=== PATIENT | female | born 1950 | race Caucasian/White ===

== ENCOUNTER 2016-12-02 15:26 | Observation (INO) | payer MEDICARE, BC ==
[~2016-12-02] VITALS: Ht 162.6 cm; Wt 70.0 kg
[~2016-12-02 15:26] MED LIST: ACET-703 PO; ASPI81CH CHEW; FERR325T PO; FOLI800T PO; ISOS30TA3 PO; LEVEMIR SQ; LISI-515 PO; METO50TA PO; NITR1SUB3 SL; NOVOLOGP2 SQ; PERI8.6T PO; PRAS10TA PO; PRAV40TA2 PO; RANI150C PO; SPIR25TA PO; TRAM-492 PO; VITA100T PO; ZINC30TA2 PO
[2016-12-02 15:30] VITALS: BP 237/102; PULSE 59; TEMP 94.7; O2SAT 97
[2016-12-02] MEDS ORDERED: SODIUM CHLORIDE 0.9% FLUSH 5 ML FLUSH IVF PRN (15:30)
[2016-12-02] MEDS ORDERED: METOCLOPRAMIDE HCL 10 MG/2 ML VIAL IV PUSH ONE (15:30)
[2016-12-02] MEDS ORDERED: SODIUM CHLOR 0.9% 1000 ML INJ 1,000 ML IV SCH ×3 (15:30→18:06)
--- NOTE | 2016-12-02 15:33 | PD ---
HPI Chief Complaint: HYPOGLYCEMIA Time Seen by Provider: 15:33 Travel History International Travel<30 days: No Contact w/Intl Traveler<30days: No History of Present Illness HPI 65-year-old female with a history of CAD, asthma, COPD, iron deficiency anemia, diabetes presents to the emergency department by EMS for evaluation of hypoglycemia and vomiting. Per EMS report the patient was altered and her blood glucose was noted to be 37 on arrival, she was given 25 g of D50 which brought her sugar up to 262 and her mentation improved. The patient states that she has not been feeling well since she had her cardiac catheterization by Dr. pink, states she had 2 stents placed. States that she has been feeling weak and tired since the procedure. States that she started vomiting this afternoon. States that she did eat breakfast and take her insulin this morning and the vomiting started this afternoon. She denies any chest pain, shortness of breath, abdominal pain, diarrhea, constipation, dysuria, numbness or tingling, one-sided weakness, fever, cough or cold symptoms. She complains of mild lightheadedness. No other complaints. PFSH Past Medical History Hx Anticoagulant Therapy: Yes (EFFIENT) Anemia: Yes (iron deficiency) Arthritis: Yes Asthma: Yes Heart Rhythm Problems: No Cancer: No Cardiovascular Problems: Yes ([place]) High Cholesterol: No Chest Pain: Yes Congestive Heart Failure: Yes COPD: No Cerebrovascular Accident: No Coronary Artery Disease: Yes Diabetes: Yes Diminished Hearing: No Endocrine: No Gastrointestinal Disorders: No GERD: No Genitourinary: No Headaches: No Hepatitis: No Hiatal Hernia: Yes Hypertension: Yes Immune Disorder: No Implanted Vascular Access Dvce: No Kidney Stones: No Musculoskeletal: Yes (ARTHRITIS) Neurologic: Yes (LAMINECTOMY,SIATICA, NEUROPATHY) Psychiatric: No Reproductive: No Respiratory: Yes (COPD) Immunizations Current: No Migraines: Yes Myocardial Infarction: Yes (STENTS X 2) Renal Failure: No Seizures: No Sleep Apnea: No Thyroid Disease: No Ulcer: No Menopausal: Yes : 1 Para: 1 Miscarriage: 0 Past Surgical History Abdominal Surgery: Yes (appy) AICD: No Body Medical Devices: CARDIAC STENTS Cardiac Surgery: No Section: Yes Ear Surgery: No Endocrine Surgery: No Eye Surgery: No Genitourinary Surgery: No Gynecologic Surgery: Yes (C-SECT., HYSTERECTOMY) Hysterectomy: Yes Joint Replacement: No Neurologic Surgery: No Oral Surgery: Yes (TONSILS) Pacemaker: No Thoracic Surgery: No Tonsillectomy: Yes (ADENOIDS) Other Surgery: Yes (LEFT WRIST GANGLION CYST) Social History Alcohol Use: No Tobacco Use: No (QUIT 2001) Substance Use: No Allergies-Medications (Allergen,Severity, Reaction): Coded Allergies: Darvon (Verified Allergy, Mild, RASH, 12/02/16) Reported Meds & Prescriptions Reported Meds & Active Scripts Active Reported Zinc (Zinc Gluconate) 50 Mg Tab 50 Mg PO DAILY B-12 (Cyanocobalamin) 2,500 Mcg Subl 2,500 Mcg PO DAILY Nitroglycerin SL (Nitroglycerin) 0.4 Mg Subl 0.4 Mg SL DIRECTED PRN ONE TABLET UNDER THE TONGUE NEEDED FOR CHEST PAIN, MAY REPEAT EVERY FIVE MINUTES FOR A TOTAL OF 3 DOSES OR CALL 911 IF NO RELIEF Isosorbide Mononitrate ER (Isosorbide Mononitrate) 30 Mg Abbey 30 Mg PO DAILY Tylenol Extra Strength (Acetaminophen) 500 Mg Tab 500 Mg PO Q4-6H PRN Spironolactone 25 Mg Tab 25 Mg PO DAILY Pravastatin 40 Mg Tab 40 Mg PO DAILY Ranitidine (Ranitidine HCl) 150 Mg Cap 150 Mg PO DAILY PRN Jocelyn-Colace (Sennosides-Docusate Sodium) 8.6-50 Mg Tab 2 Tab PO DAILY Novolog Inj (Insulin Aspart) 1,000 Unit/10 Ml Vial Unknown Dose SQ ACHS Sliding Scale as directed. Metoprolol Tartrate 50 Mg Tab 50 Mg PO BID Lisinopril 20 Mg Tab 20 Mg PO DAILY Levemir Inj (Insulin Detemir) 1,000 unit/ 10 ML Vial 20 Units SQ BID Do not mix with any other Insulin. Folic Acid 800 Mcg Tab 1,600 Mcg PO DAILY Ferrous Sulfate 325 Mg Tab 325 Mg PO DAILY Effient (Prasugrel) 10 Mg Tab 10 Mg PO DAILY Aspirin 81 Mg Chew 81 Mg CHEW DAILY Review of Systems Except as stated in HPI: all other systems reviewed are Neg Physical Exam Narrative GENERAL: Well-nourished and well-developed female patient in no acute distress. SKIN: Warm and dry. HEAD: Normocephalic and atraumatic. EYES: No injection, drainage, or hyphema noted. PERRLA. EOMI. ENT: No nasal drainage noted. Oropharynx is clear. NECK: Supple and the trachea is midline. CARDIOVASCULAR: Regular rate and rhythm. RESPIRATORY: Breath sounds are equal bilaterally with no accessory muscle use, wheezing, rhonchi, or crackles. GASTROINTESTINAL: Abdomen is soft, non-tender, and nondistended. MUSCULOSKELETAL: No obvious deformities, swelling, cyanosis, or ecchymosis is present throughout the upper and lower extremities. Patient has full range of motion without any signs of neurovascular compromise. Strength 5/5 upper and lower extremities equal bilaterally. NEUROLOGICAL: Awake, alert, and oriented. Normal speech and gait. Cranial nerves are grossly intact. Data Data Last Documented VS Vital Signs Date Time Temp Pulse Resp B/P Pulse Ox O2 Delivery O2 Flow Rate FiO2 12/02/16 19:45 97.7 69 18 181/80 98 12/02/16 17:39 Room Air Orders Complete Blood Count With Diff (12/02/16 15:30) Comprehensive Metabolic Panel (12/02/16 15:30) Lipase (12/02/16 15:30) Prothrombin Time / Inr (Pt) (12/02/16 15:30) Act Partial Throm Time (Ptt) (12/02/16 15:30) Urinalysis - C+S If Indicated (12/02/16 15:30) Iv Access Insert/Monitor (12/02/16 15:30) Ecg Monitoring (12/02/16 15:30) Oximetry (12/02/16 15:30) Sodium Chlor 0.9% 1000 Ml Inj (Ns 1000 M (12/02/16 15:30) Sodium Chloride 0.9% Flush (Ns Flush) (12/02/16 15:30) Electrocardiogram (12/02/16 15:30) Chest, Single Ap (12/02/16 15:30) Metoclopramide Inj (Reglan Inj) (12/02/16 15:30) Lactic Acid Sepsis Protocol (12/02/16 15:30) Creatine Kinase (Cpk) (12/02/16 15:38) Troponin I (12/02/16 15:39) Ct Brain W/O Iv Contrast(Rout) (12/02/16 15:56) Sodium Chlor 0.9% 1000 Ml Inj (Ns 1000 M (12/02/16 16:25) Meclizine (Antivert) (12/02/16 18:15) Sodium Chlor 0.9% 1000 Ml Inj (Ns 1000 M (12/02/16 18:06) Cath For Specimen (12/02/16 18:06) Labetalol Inj (Trandate Inj) (12/02/16 18:15) Meclizine (Antivert) (12/02/16 18:15) Diazepam (Valium) (12/02/16 18:15) Admit Order (Ed Use Only) (12/02/16 19:47) Labs Laboratory Tests Test 12/02/16 12/02/16 15:45 18:15 White Blood Count 6.9 TH/MM3 Red Blood Count 4.17 MIL/MM3 Hemoglobin 11.7 GM/DL Hematocrit 35.1 % Mean Corpuscular Volume 84.2 FL Mean Corpuscular Hemoglobin 28.1 PG Mean Corpuscular Hemoglobin 33.3 % Concent Red Cell Distribution Width 15.4 % Platelet Count 258 TH/MM3 Mean Platelet Volume 8.3 FL Neutrophils (%) (Auto) 64.0 % Lymphocytes (%) (Auto) 23.1 % Monocytes (%) (Auto) 9.0 % Eosinophils (%) (Auto) 3.3 % Basophils (%) (Auto) 0.6 % Neutrophils # (Auto) 4.4 TH/MM3 Lymphocytes # (Auto) 1.6 TH/MM3 Monocytes # (Auto) 0.6 TH/MM3 Eosinophils # (Auto) 0.2 TH/MM3 Basophils # (Auto) 0.0 TH/MM3 CBC Comment DIFF FINAL Differential Comment Prothrombin Time 10.3 SEC Prothromb Time International 0.9 RATIO Ratio Activated Partial 24.3 SEC Thromboplast Time Sodium Level 140 MEQ/L Potassium Level 4.3 MEQ/L Chloride Level 111 MEQ/L Carbon Dioxide Level 21.4 MEQ/L Anion Gap 8 MEQ/L Blood Urea Nitrogen 29 MG/DL Creatinine 1.50 MG/DL Estimat Glomerular Filtration 35 ML/MIN Rate Random Glucose 112 MG/DL Lactic Acid Level 1.2 mmol/L Calcium Level 9.7 MG/DL Total Bilirubin 0.2 MG/DL Aspartate Amino Transf 25 U/L (AST/SGOT) Alanine Aminotransferase 26 U/L (ALT/SGPT) Alkaline Phosphatase 168 U/L Total Creatine Kinase 84 U/L Troponin I 0.03 NG/ML Total Protein 6.8 GM/DL Albumin 3.0 GM/DL Lipase 178 U/L Urine Color LIGHT-YELLOW Urine Turbidity CLEAR Urine pH 7.0 Urine Specific [place] 1.009 Urine Protein 100 mg/dL Urine Glucose (UA) 70 mg/dL Urine Ketones NEG mg/dL Urine Occult Blood NEG Urine Nitrite NEG Urine Bilirubin NEG Urine Urobilinogen LESS THAN 2.0 MG/DL Urine Leukocyte Esterase NEG Urine RBC 1 /hpf Urine WBC 2 /hpf Urine Squamous Epithelial <1 /hpf Cells Urine Hyaline Casts 2 /lpf Microscopic Urinalysis Comment CATH-CULT NOT IND MDM Medical Decision Making Medical Screen Exam Complete: Yes Emergency Medical Condition: Yes Differential Diagnosis Hypoglycemia versus dehydration versus electrolyte abnormality versus ACS Narrative Course 65-year-old female presents to the emergency department for evaluation of nausea , vomiting, weakness and hypoglycemia. She was given 25 g D50 and Zofran 4 mg by EMS en route. Patient is afebrile. She is noted to be hypertensive initially with a blood pressure of 237/102, patient admits she did not take any of her blood pressure medications today because she was not feeling well. No focal neurologic deficits. No other complaints. IV access is obtained, labs been drawn and sent. Patient is given IV fluids and Reglan 10 mg IV. EKG shows sinus rhythm with no acute ST elevations or depressions. CBC is unremarkable. CMP shows renal insufficiency with an elevated creatinine of 1.50, BUN 29, GFR 34. This is slightly elevated from the patient's baseline. Troponin is 0.03. Coags are unremarkable. Chest x-ray is negative. Head CT is negative. Patient is complaining of continued dizziness with movement, states when she moves her head she feels as though the room is spinning and this causes her to feel nauseous. We'll give her meclizine and Valium. Patient reassessed after receiving medications and still reports dizziness and inability to ambulate safely due to dizziness. Therefore she'll be admitted to medicine for vertigo, nausea and vomiting. I discussed the case with my attending physician Dr. Tate who is aware of the patients history, physical examination findings, and treatment plan. Physician Communication Physician Communication I spoke with Dr. Doug DE LOS SANTOS who agrees to admit the patient to her service under observation. I spoke with Ely ROLLE for Dr. Colon and to let her know the patient will be admitted for vertigo. She thanked me for my call and agrees to consult on the patient while she is here in the hospital. Diagnosis Primary Impression: Vertigo Additional Impression: Nausea & vomiting Qualified Code: R11.2 - Non-intractable vomiting with nausea, unspecified vomiting type Admitting Information Admitting Physician Requests: Tara Perez Dec 02, 2016 15:33
[2016-12-02 15:43] VITALS: O2SAT 97
[2016-12-02 15:58] LABS: AUTOMATED NEUTROPHIL # 4.4 TH/MM3 (1.8-7.7); BASOPHIL % 0.6 % (0.0-2.0); EOSINOPHIL # 0.2 TH/MM3 (0-0.4); EOSINOPHIL % 3.3 % (0.0-4.0); HEMATOCRIT 35.1 % (35.0-46.0); HEMO FLAGS DIFF FINAL; LYMPH % 23.1 % (9.0-44.0); LYMPHOCYTE # 1.6 TH/MM3 (1.0-4.8); MEAN CELL VOLUME 84.2 FL (80.0-100.0); MEAN CORPUSCULAR HEMOGLOBIN 28.1 PG (27.0-34.0); MEAN CORPUSCULAR HGB CONC 33.3 % (32.0-36.0); PLATELET COUNT 258 TH/MM3 (150-450); RED BLOOD COUNT 4.17 MIL/MM3 (4.00-5.30); RED CELL DISTRIBUTION WIDTH 15.4 % (11.6-17.2); WHITE BLOOD COUNT 6.9 TH/MM3 (4.0-11.0)
[2016-12-02 16:12] LABS: ALT (GPT) 26 U/L (10-53); ANION GAP 8 MEQ/L (5-15); AST (GOT) 25 U/L (15-37); BICARBONATE 21.4 MEQ/L (21.0-32.0); BLOOD UREA NITROGEN 29 MG/DL (7-18); CHLORIDE 111 MEQ/L (98-107); GLOMERULAR FILTRATION RATE 35 ML/MIN (>89); POTASSIUM 4.3 MEQ/L (3.5-5.1); SODIUM (NA) 140 MEQ/L (136-145)
[2016-12-02 16:13] LABS: APTT (PATIENT) 24.3 SEC (24.3-30.1); INTERNATIONAL NORMALIZED RATIO 0.9 RATIO; PROTHROMBIN TIME - PATIENT 10.3 SEC (9.8-11.6)
[2016-12-02 16:15] LABS: ALKALINE PHOSPHATASE 168 U/L (45-117); TOTAL BILIRUBIN ADULT 0.2 MG/DL (0.2-1.0)
--- NOTE | 2016-12-02 16:33 | RADRPT ---
EXAM DATE/TIME: 12/02/2016 15:54 [facility] COMPARISON: CHEST SINGLE AP, August 11, 2016, 4:24. INDICATIONS : Cough and vomiting. MEDICAL HISTORY : Chronic obstructive pulmonary disease. Myocardial infarction. Congestive heart failure. SURGICAL HISTORY : Coronary artery stent. ENCOUNTER: Initial ACUITY: 1 day PAIN SCORE: Non-responsive. LOCATION: Bilateral chest FINDINGS: A single view of the chest demonstrates the lungs to be symmetrically aerated without evidence of mas s, infiltrate or effusion. The cardiomediastinal contours are unremarkable. Osseous structures are intact. CONCLUSION: No acute disease. Rafa Gates MD on December 02, 2016 at 16:28 Board Certified Radiologist. This report was verified electronically.
[2016-12-02 17:39] VITALS: BP 217/69; PULSE 80; RESP 16; TEMP 97.6; O2SAT 98
[2016-12-02] MEDS ORDERED: CHEL50TA PO (17:39)
[2016-12-02] MEDS ORDERED: CYAN5SUB PO (17:39)
--- NOTE | 2016-12-02 18:02 | RADRPT ---
EXAM DATE/TIME: 12/02/2016 17:19 [facility] COMPARISON: No previous studies available for comparison. INDICATIONS : Hypoglycemic with nausea and vomiting. RADIATION DOSE: 41.75 CTDIvol (mGy) MEDICAL HISTORY : Cardiovascular disease. Hypertension. Diabetes mellitus type 2. SURGICAL HISTORY : None. ENCOUNTER: Initial ACUITY: 1 day PAIN SCALE: 0/10 LOCATION: cranial TECHNIQUE: Multiple contiguous axial images were obtained of the head. Using automated exposure control and adj ustment of the mA and/or kV according to patient size, radiation dose was kept as low as reasonably a chievable to obtain optimal diagnostic quality images. FINDINGS: CEREBRUM: The ventricles are normal for age. No evidence of midline shift, mass lesion, hemorrhage or acute in farction. No extra-axial fluid collections are seen. POSTERIOR FOSSA: The cerebellum and brainstem are intact. The 4th ventricle is midline. The cerebellopontine angle i s unremarkable. EXTRACRANIAL: The visualized portion of the orbits is intact. SKULL: The calvaria is intact. No evidence of skull fracture. CONCLUSION: Normal examination. Rafa Gates MD on December 02, 2016 at 17:50 Board Certified Radiologist. This report was verified electronically.
[2016-12-02] MEDS ORDERED: LABETALOL HCL 100 MG/20 ML VIAL IV PUSH ONE (18:15)
[2016-12-02] MEDS ORDERED: DIAZEPAM 5 MG TAB PO ONE (18:15)
[2016-12-02] MEDS ORDERED: MECLIZINE HCL 25 MG TAB PO ONE ×2 (18:15)
[2016-12-02 18:42] LABS: BLOOD, URINE NEG (NEG); GLUCOSE,URINE 70 mg/dL (NEG); HYALINE CAST, URINE 2 /lpf (RARE); KETONE, URINE NEG (NEG); NITRITE,URINE NEG (NEG); SQUAMOUS EPITHELIAL CELL URINE <1 /hpf (0-5); URINE COLOR LIGHT-YELLOW (YELLW/STRAW)
[2016-12-02 18:43] LABS: COMMENT (UR) CATH-CULT NOT IND; CULTURE IF INDICATED CATH CULTURE NOT IND
[2016-12-02 19:45] VITALS: BP 181/80; PULSE 69; RESP 18; TEMP 97.7; O2SAT 98
[2016-12-02] MEDS ORDERED: SENNOSIDES 8.6 MG TAB PO PRN (20:00)
[2016-12-02] MEDS ORDERED: BISACODYL 10 MG SUPP PR PRN (20:00)
[2016-12-02] MEDS ORDERED: SODIUM CHLORIDE 0.9% FLUSH 5 ML FLUSH FLUSH PRN (20:00)
[2016-12-02] MEDS ORDERED: ACETAMINOPHEN 325 MG TAB PO PRN (20:00)
[2016-12-02] MEDS ORDERED: ONDANSETRON HCL 4 MG/2 ML VIAL IVP PRN (20:00)
[2016-12-02] MEDS ORDERED: ENALAPRILAT 2.5 MG/2 ML VIAL IV PUSH PRN (20:00)
[2016-12-02] MEDS ORDERED: NITROGLYCERIN 0.4 MG SL 25 TABS/BTL SL PRN (20:00)
[2016-12-02] MEDS ORDERED: cloNIDine HCL 0.1 MG TAB PO PRN (20:00)
--- NOTE | 2016-12-02 20:12 | EKG ---
Date Performed: 12/02/2016 Time Performed: 14:46:02 PTAGE: 65 years EKG: Sinus rhythm MODERATE INTRAVENTRICULAR CONDUCTION DELAY NONSPECIFIC T-WAVE ABNORMALITY ABNORMAL ECG NO SIGNIFICAN T CHANGE FROM PRIOR ELECTROCARDIOGRAM. PREVIOUS TRACING : 11/25/2016 11.21 DOCTOR: Jae Hinton Interpretating Date/Time 12/02/2016 20:11:47
[2016-12-02] MEDS ORDERED: PILL SPLITTER OTHER PRN (20:45)
[2016-12-02] MEDS ORDERED: FAMOTIDINE 20 MG TAB PO PRN (20:45)
[2016-12-02] MEDS ORDERED: INSULIN DETEMIR 100 UNITS/ML VIAL SQ SCH (21:00)
[2016-12-02] MEDS ORDERED: ENOXAPARIN SODIUM 30 MG/0.3 ML SYRINGE SQ SCH (21:00)
[2016-12-02] MEDS: SODIUM CHLOR 0.9% 1000 ML INJ 1,000 ML IV SCH (21:01)
[2016-12-02] MEDS: METOPROLOL TARTRATE 50 MG TAB PO SCH (21:02)
[2016-12-02] MEDS: SODIUM CHLORIDE 0.9% FLUSH 5 ML FLUSH FLUSH SCH (21:03)
[2016-12-02 21:29] VITALS: BP 189/84; PULSE 68; RESP 18; TEMP 97.7; O2SAT 98
--- NOTE | 2016-12-02 23:25 | HHI.HP ---
[facility] Service [facility] Primary Care Physician No Primary Care Physician Admission Diagnosis Dizziness, Nausea and Vomiting Diagnoses: Chief Complaint: Dizziness ,nausea, vomiting Travel History International Travel<30 Days: No Contact w/Intl Traveler <30 Da: No Traveled to Known Affected Are: No History of Present Illness 65-year-old female with a history of diabetes, KS with recent stent placement one week ago, and iron deficiency anemia. Patient states she went to lay down tonight because she hasn't been feeling well since her stent placement one week ago and according to the she became lethargic and was unable to wake up, then called 911. Patient states she began to wake up when the paramedics began working on her, she does not recall any prior events prior to. She does state that when she woke up she started vomiting numerous amount of times. She states she has been feeling very weak and had loss of appetite today and had only eaten eggs for breakfast all day. She denies any chest pain, shortness of breath, fever or chills Per the EMS report the patient was noted to have a blood sugar of 37 on arrival and was given D50 in which elevated her blood sugar 262, with improved consciousness. She is followed by Dr. Reddy for cardiology Review of Systems Constitutional: COMPLAINS OF: Fatigue, Dizziness, DENIES: Fever, Chills Respiratory: DENIES: Cough, Shortness of breath Cardiovascular: DENIES: Chest pain, Lower Extremity Edema Gastrointestinal: COMPLAINS OF: Nausea, Vomiting, DENIES: Abdominal pain Genitourinary: DENIES: Hematuria Musculoskeletal: DENIES: Back pain, Neck pain Integumentary: DENIES: Rash Hematologic/lymphatic: DENIES: Lymphadenopathy Neurologic: COMPLAINS OF: Localized weakness Past Family Social History Past Medical History CAD Asthma COPD Iron deficiency anemia Diabetes [place] with stent placement 10/2016 Past Surgical History Stent placement 10/2016 L5 laminectomy with nerve decompression Hysterectomy Reported Medications Reported Meds & Active Scripts Active Reported Zinc (Zinc Gluconate) 50 Mg Tab 50 Mg PO DAILY B-12 (Cyanocobalamin) 2,500 Mcg Subl 2,500 Mcg PO DAILY Nitroglycerin SL (Nitroglycerin) 0.4 Mg Subl 0.4 Mg SL DIRECTED PRN ONE TABLET UNDER THE TONGUE NEEDED FOR CHEST PAIN, MAY REPEAT EVERY FIVE MINUTES FOR A TOTAL OF 3 DOSES OR CALL 911 IF NO RELIEF Isosorbide Mononitrate ER (Isosorbide Mononitrate) 30 Mg Abbey 30 Mg PO DAILY Tylenol Extra Strength (Acetaminophen) 500 Mg Tab 500 Mg PO Q4-6H PRN Spironolactone 25 Mg Tab 25 Mg PO DAILY Pravastatin 40 Mg Tab 40 Mg PO DAILY Ranitidine (Ranitidine HCl) 150 Mg Cap 150 Mg PO DAILY PRN Jocelyn-Colace (Sennosides-Docusate Sodium) 8.6-50 Mg Tab 2 Tab PO DAILY Novolog Inj (Insulin Aspart) 1,000 Unit/10 Ml Vial Unknown Dose SQ ACHS Sliding Scale as directed. Metoprolol Tartrate 50 Mg Tab 50 Mg PO BID Lisinopril 20 Mg Tab 20 Mg PO DAILY Levemir Inj (Insulin Detemir) 1,000 unit/ 10 ML Vial 20 Units SQ BID Do not mix with any other Insulin. Folic Acid 800 Mcg Tab 1,600 Mcg PO DAILY Ferrous Sulfate 325 Mg Tab 325 Mg PO DAILY Effient (Prasugrel) 10 Mg Tab 10 Mg PO DAILY Aspirin 81 Mg Chew 81 Mg CHEW DAILY Allergies: Coded Allergies: Darvon (Verified Allergy, Mild, RASH, 12/02/16) Active Ordered Medications Current Medications Medications (Trade) Dose Ordered Sig/Marie Route Start Time Stop Time Status Last Admin (NS Flush) 2 ml UNSCH PRN FLUSH 12/02/16 20:00 (NS Flush) 2 ml BID FLUSH 12/02/16 21:00 12/02/16 21:03 (Tylenol) 650 mg Q4H PRN PO 12/02/16 20:00 (Zofran Inj) 4 mg Q6H PRN IVP 12/02/16 20:00 (Dulcolax Supp) 10 mg DAILY PRN AK 12/02/16 20:00 (Senokot) 17.2 mg Q12H PRN PO 12/02/16 20:00 (Lovenox Inj) 30 mg Q24H SQ 12/02/16 21:00 12/02/16 21:02 (Aspirin Chew) 81 mg DAILY CHEW 12/03/16 09:00 (Ferrous Sulfate) 325 mg DAILY PO 12/03/16 09:00 (Folate) 1 mg DAILY PO 12/03/16 09:00 (Levemir Inj) 20 units BID SQ 12/02/16 21:00 (Imdur) 30 mg DAILY PO 12/03/16 09:00 (Prinivil) 20 mg DAILY PO 12/03/16 09:00 (Lopressor) 50 mg BID PO 12/02/16 21:00 12/02/16 21:02 (Effient) 10 mg DAILY PO 12/03/16 09:00 (Pravachol) 40 mg DAILY PO 12/03/16 09:00 (Pepcid) 10 mg BID PRN PO 12/02/16 20:45 (Jocelyn-Colace) 2 tab DAILY PO 12/03/16 09:00 (Aldactone) 25 mg DAILY PO 12/03/16 09:00 (Vitamin B12) 2,500 mcg DAILY PO 12/03/16 09:00 Nitroglycerin 0.4 mg 0.4 mg Q5M PRN SL 12/02/16 20:00 (NS 1000 ml Inj) 1,000 ml @ 84 mls/hr [id number] IV 12/02/16 20:00 12/02/16 21:01 (Vasotec Inj) 2.5 mg Q6H PRN IV PUSH 12/02/16 20:00 (Catapres) 0.1 mg Q6H PRN PO 12/02/16 20:00 12/02/16 21:36 (Pill Splitter) 1 ea UNSCH PRN OTHER 12/02/16 20:45 Family History Mom: MS Dad: Colon cancer Social History Tobacco use: Quit 15 years ago prior to this 1 ppd for 40 years Alcohol use: Denies Illicit drug use: Denies Physical Exam Vital Signs Vital Signs Date Time Temp Pulse Resp B/P Pulse Ox O2 Delivery O2 Flow Rate FiO2 12/02/16 21:29 97.7 68 18 189/84 98 Room Air 12/02/16 19:45 97.7 69 18 181/80 98 12/02/16 17:39 97.6 80 16 217/69 98 Room Air 12/02/16 15:45 99 18 98 Room Air 12/02/16 15:43 97 Room Air 12/02/16 15:30 94.7 59 237/102 97 Physical Exam GENERAL: This is a well-nourished, well-developed patient, in no apparent distress. SKIN: No rashes, ecchymoses or lesions. Cool and dry. HEAD: Atraumatic. Normocephalic. EYES: Pupils equal round and reactive. ENT: Nose without bleeding, purulent drainage or septal hematoma. Throat without erythema, tonsillar hypertrophy or exudate. Uvula midline. Airway patent. NECK: Trachea midline. No JVD CARDIOVASCULAR: Regular rate and rhythm without murmurs, gallops, or rubs. RESPIRATORY: Clear to auscultation. Breath sounds equal bilaterally. No wheezes , rales, or rhonchi. GASTROINTESTINAL: Abdomen soft, non-tender, nondistended. MUSCULOSKELETAL: Extremities without clubbing, cyanosis, or edema. No joint tenderness, effusion, or edema noted. No calf tenderness. NEUROLOGICAL: Awake and alert. Cranial nerves II through XII intact. Motor and sensory grossly within normal limits. Five out of 5 muscle strength in all muscle groups. Normal speech. Laboratory Laboratory Tests Test 12/02/16 12/02/16 12/02/16 15:45 18:15 20:59 White Blood Count 6.9 Red Blood Count 4.17 Hemoglobin 11.7 Hematocrit 35.1 Mean Corpuscular Volume 84.2 Mean Corpuscular Hemoglobin 28.1 Mean Corpuscular Hemoglobin 33.3 Concent Red Cell Distribution Width 15.4 Platelet Count 258 Mean Platelet Volume 8.3 Neutrophils (%) (Auto) 64.0 Lymphocytes (%) (Auto) 23.1 Monocytes (%) (Auto) 9.0 Eosinophils (%) (Auto) 3.3 Basophils (%) (Auto) 0.6 Neutrophils # (Auto) 4.4 Lymphocytes # (Auto) 1.6 Monocytes # (Auto) 0.6 Eosinophils # (Auto) 0.2 Basophils # (Auto) 0.0 CBC Comment DIFF FINAL Differential Comment Prothrombin Time 10.3 Prothromb Time International 0.9 Ratio Activated Partial 24.3 Thromboplast Time Sodium Level 140 Potassium Level 4.3 Chloride Level 111 Carbon Dioxide Level 21.4 Anion Gap 8 Blood Urea Nitrogen 29 Creatinine 1.50 Estimat Glomerular Filtration 35 Rate Random Glucose 112 Lactic Acid Level 1.2 Calcium Level 9.7 Total Bilirubin 0.2 Aspartate Amino Transf 25 (AST/SGOT) Alanine Aminotransferase 26 (ALT/SGPT) Alkaline Phosphatase 168 Total Creatine Kinase 84 Troponin I 0.03 0.03 Total Protein 6.8 Albumin 3.0 Lipase 178 Urine Color LIGHT-YELLOW Urine Turbidity CLEAR Urine pH 7.0 Urine Specific [place] 1.009 Urine Protein 100 Urine Glucose (UA) 70 Urine Ketones NEG Urine Occult Blood NEG Urine Nitrite NEG Urine Bilirubin NEG Urine Urobilinogen LESS THAN 2.0 Urine Leukocyte Esterase NEG Urine RBC 1 Urine WBC 2 Urine Squamous Epithelial <1 Cells Urine Hyaline Casts 2 Microscopic Urinalysis Comment CATH-CULT NOT IND Result Diagram: 12/02/16 1545 12/02/16 1545 Imaging Last Impressions Head CT 12/02/16 1556 Signed Impressions: Service Date/Time: Friday, December 02, 2016 17:19 - CONCLUSION: Normal examination. Raaf Gates MD Chest X-Ray 12/02/16 1530 Signed Impressions: Service Date/Time: Friday, December 02, 2016 15:54 - CONCLUSION: No acute disease. Rafa Gates MD Assessment and Plan Problem List: (1) Nausea & vomiting ICD Code: R11.2 Status: Acute (2) Vertigo ICD Code: R42 Status: Acute (3) Hypoglycemia ICD Code: E16.2 Status: Acute (4) Acute kidney insufficiency ICD Code: N28.9 Status: Acute (5) Anemia, iron deficiency ICD Code: D50.9 Status: Chronic (6) Hypertension ICD Code: I10 Status: Chronic Assessment and Plan 65-year-old female with a history of diabetes, [place], anemia, COPD presented with: Hypoglycemia, upon admission blood glucose found to be 37 -Accu-Cheks before meals and at bedtime Nausea/vomiting, likely due to hypoglycemia -Antiemetics as needed -Diet as tolerated Dizziness/fatigue -Consult cardiology for recommendations -Serial troponins OCNOR Labs: Creatinine 1.5, baseline 0.7 -Supportive IVF -BMP in a.m. Other chronic medical conditions hypertension, iron deficiency anemia and dyslipidemia. -Continue home medications ferrous sulfate, metoprolol, pravastatin and lisinopril DVT prophylaxis: Lovenox Written by Jane PETERSON, acting as scribe for Dr. Camacho on 12/02/16 at 2356. The documentation accurately reflects the work performed [id number] and decisions made by me and the physician Dr Camacho on 12/02/16. The documentation accurately reflects the work performed [id number] by me Dr Camacho on 12/02/16. Discussed Condition With Patient and ED physician Problem Qualifiers (1) Nausea & vomiting: Qualified Code: R11.2 - Non-intractable vomiting with nausea, unspecified vomiting type Jane Monaco Dec 02, 2016 23:25 Lay Camacho MD Dec 03, 2016 04:07
[2016-12-03] VITALS (7 sets, daily range): BP systolic 159–179; BP diastolic 72–77; PULSE 65–70; RESP 18; TEMP 96.3–97.5; O2SAT 96–98
[2016-12-03] MEDS ORDERED: DEXTROSE 50% IN WATER 50 ML VIAL(D50) IV PUSH PRN (02:15)
[2016-12-03] MEDS ORDERED: GLUCAGON 1 MG/ML VIAL OTHER PRN (02:15)
[2016-12-03 03:40] LABS: AUTOMATED NEUTROPHIL # 5.2 TH/MM3 (1.8-7.7); BASOPHIL % 0.3 % (0.0-2.0); HEMATOCRIT 31.1 % (35.0-46.0); HEMO FLAGS DIFF FINAL; LYMPH % 14.7 % (9.0-44.0); LYMPHOCYTE # 0.9 TH/MM3 (1.0-4.8); MEAN CELL VOLUME 84.3 FL (80.0-100.0); MEAN CORPUSCULAR HEMOGLOBIN 28.1 PG (27.0-34.0); MEAN CORPUSCULAR HGB CONC 33.4 % (32.0-36.0); MONO % 2.5 % (0.0-8.0); NEUT % 82.5 % (16.0-70.0); PLATELET COUNT 261 TH/MM3 (150-450); RED BLOOD COUNT 3.69 MIL/MM3 (4.00-5.30); WHITE BLOOD COUNT 6.3 TH/MM3 (4.0-11.0)
[2016-12-03 03:54] LABS: BICARBONATE 20.6 MEQ/L (21.0-32.0); POTASSIUM 4.9 MEQ/L (3.5-5.1)
[2016-12-03] MEDS ORDERED: ENALAPRILAT 1.25 MG/ML VIAL IV PRN (08:15)
[2016-12-03] MEDS ORDERED: cloNIDine HCL 0.1 MG TAB PO PRN (08:15)
[2016-12-03] MEDS: METOPROLOL TARTRATE 50 MG TAB PO SCH (08:51)
[2016-12-03] MEDS: SODIUM CHLORIDE 0.9% FLUSH 5 ML FLUSH FLUSH SCH (08:51)
[2016-12-03] MEDS: SODIUM CHLOR 0.9% 1000 ML INJ 1,000 ML IV SCH (08:57)
[2016-12-03] MEDS ORDERED: PRASUGREL 10 MG TAB PO SCH (09:00)
[2016-12-03] MEDS ORDERED: FERROUS SULFATE 325 MG (65 MG ELEMENTAL IRON) TAB PO SCH (09:00)
[2016-12-03] MEDS ORDERED: FOLIC ACID 1 MG TAB PO SCH (09:00)
[2016-12-03] MEDS ORDERED: INSULIN DETEMIR 100 UNITS/ML VIAL SQ SCH (09:00)
[2016-12-03] MEDS ORDERED: ISOSORBIDE MONONITRATE 30 MG TAB PO SCH (09:00)
[2016-12-03] MEDS ORDERED: DOCUSATE SODIUM 50 MG/SENNA 8.6 MG TAB PO SCH (09:00)
[2016-12-03] MEDS ORDERED: CYANOCOBALAMIN 1,000 MCG TAB PO SCH (09:00)
[2016-12-03] MEDS ORDERED: ASPIRIN 81 MG CHEW TAB CHEW SCH (09:00)
[2016-12-03] MEDS ORDERED: PRAVASTATIN SOD 40 MG TAB PO SCH (09:00)
[2016-12-03] MEDS ORDERED: LISINOPRIL 20 MG TAB PO SCH (09:00)
[2016-12-03] MEDS ORDERED: SPIRONOLACTONE 25 MG TAB PO SCH (09:00)
[2016-12-03] MEDS ORDERED: LEVEMIR SQ (09:46)
--- NOTE | 2016-12-03 09:47 | HHI.DCPOC ---
Discharge Care Plan Diagnosis: (1) Hypoglycemia Your Health Problems Are: Difficulty with ADL Exercise Tolerance Goals to Promote Your Health * To prevent worsening of your condition and complications * To maintain your health at the optimal level Directions to Meet Your Goals Take your medications as prescribed Follow your dietary instruction Follow activity as directed Keep your appointments as scheduled Take your immunizations and boosters as scheduled If your symptoms worsen call your PCP, if no PCP go to Urgent Care Center or Emergency Room Smoking is Dangerous to Your Health. Avoid second hand smoke Call the 24-hour hour crisis hotline for domestic abuse at Tony Gomez MD Dec 03, 2016 09:47
[2016-12-03] MEDS ORDERED: INSULIN ASPART SUPPLEMENTAL SCALE SQ SCH (11:00)
--- NOTE | 2016-12-03 11:49 | PD.CONS ---
HPI Service Cardiology physicians Consult Requested By ER MD Reason for Consult Dizziness, cath last week Primary Care Physician No Primary Care Physician History of Present Illness The patient is a 65 year old female known to Dr. Reddy with a cardiac history of ASHD s/p cardiac cath and stent X [address] Reddy, HTN and HLD. The patient called EMS for dizziness. Blood sugar noted to be 37. Symptoms improved with D50. Today, on evaluation she denies recurrent symptoms. No CP or SOB. Groin slightly sore with some bruising. She has been compliant with cardiac medications. Ready to go home Review of Systems Consitutional: DENIES: Fatigue, Fever, Chills, Weight gain, Weight loss Eyes: DENIES: Amaurosis Fugax, Change in vision HEENT: COMPLAINS OF: Lightheadedness Respiratory: DENIES: See HPI, Cough, Snoring, Shortness of breath, Wheezing, Sputum production Cardiovascular: DENIES: See HPI, Chest pain, Palpitations, Syncope, Tachycardia Gastrointestinal: DENIES: Nausea, Vomiting, Change in bowel habits, Reflux, Bloody stools, Melena Genitourinary: DENIES: Urinary incontinence, Difficulty voiding Integumentary: DENIES: Rash Neurologic: DENIES: Tingling or numbness, Memory problems, Poor Balance, Stroke symptoms Musculoskeletal: DENIES: Joint pain, Muscle pain, Limited range of motion, Back pain Psychiatric: DENIES: Anxiety, Depression, Sleep disturbances Hematologic: DENIES: Bruising tendencies, Bleeding tendencies Endocrine: DENIES: Weight gain, Weight loss, Thyroid disease Past Family Social History Allergies: Coded Allergies: Darvon (Verified Allergy, Mild, RASH, 12/02/16) Past Medical History ASHD HTN HLD DM COPD Past Surgical History Cardiac catheterization 10/2016 Laminectomy 'Hysterectomy Reported Medications Reviewed Active Ordered Medications Current Medications Medications (Trade) Dose Ordered Sig/Marie Route Start Time Stop Time Status Last Admin (NS Flush) 2 ml UNSCH PRN FLUSH 12/02/16 20:00 (NS Flush) 2 ml BID FLUSH 12/02/16 21:00 12/03/16 08:51 (Tylenol) 650 mg Q4H PRN PO 12/02/16 20:00 (Zofran Inj) 4 mg Q6H PRN IVP 12/02/16 20:00 (Dulcolax Supp) 10 mg DAILY PRN MS 1/4/17 20:00 (Senokot) 17.2 mg Q12H PRN PO 12/02/16 20:00 (Lovenox Inj) 30 mg Q24H SQ 12/02/16 21:00 12/02/16 21:02 (Aspirin Chew) 81 mg DAILY CHEW 12/03/16 09:00 12/03/16 08:50 (Ferrous Sulfate) 325 mg DAILY PO 12/03/16 09:00 12/03/16 08:50 (Folate) 1 mg DAILY PO 12/03/16 09:00 12/03/16 08:50 (Imdur) 30 mg DAILY PO 12/03/16 09:00 12/03/16 08:50 (Prinivil) 20 mg DAILY PO 12/03/16 09:00 12/03/16 08:48 (Lopressor) 50 mg BID PO 12/02/16 21:00 12/03/16 08:51 (Effient) 10 mg DAILY PO 12/03/16 09:00 12/03/16 08:51 (Pravachol) 40 mg DAILY PO 12/03/16 09:00 12/03/16 08:50 (Pepcid) 10 mg BID PRN PO 12/02/16 20:45 (Jocelyn-Colace) 2 tab DAILY PO 12/03/16 09:00 12/03/16 08:50 (Aldactone) 25 mg DAILY PO 12/03/16 09:00 12/03/16 08:50 (Vitamin B12) 2,500 mcg DAILY PO 12/03/16 09:00 12/03/16 08:50 Nitroglycerin 0.4 mg 0.4 mg Q5M PRN SL 12/02/16 20:00 (NS 1000 ml Inj) 1,000 ml @ 84 mls/hr [id number] IV 12/02/16 20:00 12/03/16 08:57 (Vasotec Inj) 2.5 mg Q6H PRN IV PUSH 12/02/16 20:00 (Catapres) 0.1 mg Q6H PRN PO 12/02/16 20:00 12/02/16 21:36 (Pill Splitter) 1 ea UNSCH PRN OTHER 12/02/16 20:45 (D50w (Vial) Inj) 25 ml UNSCH PRN IV PUSH 12/03/16 02:15 (Glucagon Inj) 1 mg UNSCH PRN OTHER 12/03/16 02:15 (Levemir Inj) 16 units BID SQ 12/03/16 09:00 12/03/16 08:57 (Vasotec Inj) 1.25 mg Q6H PRN IV 12/03/16 08:15 (Catapres) 0.1 mg Q6H PRN PO 12/03/16 08:15 Family History non contributory Social History no ETOH Hx smoking Physical Exam Vital Signs Vital Signs Date Time Temp Pulse Resp B/P Pulse Ox O2 Delivery O2 Flow Rate FiO2 12/03/16 10:44 65 12/03/16 07:27 97.5 68 18 179/75 96 12/03/16 05:57 70 12/03/16 04:34 96.3 66 18 177/77 96 12/03/16 04:13 69 18 167/72 96 12/03/16 00:52 66 18 159/72 98 Room Air 12/02/16 21:29 97.7 68 18 189/84 98 Room Air 12/02/16 19:45 97.7 69 18 181/80 98 12/02/16 17:39 97.6 80 16 217/69 98 Room Air 12/02/16 15:45 99 18 98 Room Air 12/02/16 15:43 97 Room Air 12/02/16 15:30 94.7 59 237/102 97 Physical Exam GENERAL: female, no distress SKIN: Warm and dry. HEAD: Atraumatic. Normocephalic. EYES: Pupils equal and round. No scleral icterus. No injection or drainage. ENT: No nasal bleeding or discharge. Mucous membranes pink and moist. NECK: Trachea midline. No JVD. CARDIOVASCULAR: Regular rate and rhythm. RESPIRATORY: No accessory muscle use. Clear to auscultation. Breath sounds equal bilaterally. GASTROINTESTINAL: Abdomen soft, non-tender, nondistended. MUSCULOSKELETAL: Extremities without clubbing, cyanosis, or edema. No obvious deformities. Bilateral groin with ecchymosis NEUROLOGICAL: Awake and alert. No obvious cranial nerve deficits. Motor grossly within normal limits. Five out of 5 muscle strength in the arms and legs. Normal speech. PSYCHIATRIC: Appropriate mood and affect; insight and judgment normal. Laboratory Laboratory Tests Test 12/02/16 12/02/16 12/02/16 12/03/16 15:45 18:15 20:59 03:29 White Blood Count 6.9 6.3 Red Blood Count 4.17 3.69 Hemoglobin 11.7 10.4 Hematocrit 35.1 31.1 Mean Corpuscular Volume 84.2 84.3 Mean Corpuscular Hemoglobin 28.1 28.1 Mean Corpuscular Hemoglobin 33.3 33.4 Concent Red Cell Distribution Width 15.4 15.0 Platelet Count 258 261 Mean Platelet Volume 8.3 8.2 Neutrophils (%) (Auto) 64.0 82.5 Lymphocytes (%) (Auto) 23.1 14.7 Monocytes (%) (Auto) 9.0 2.5 Eosinophils (%) (Auto) 3.3 0.0 Basophils (%) (Auto) 0.6 0.3 Neutrophils # (Auto) 4.4 5.2 Lymphocytes # (Auto) 1.6 0.9 Monocytes # (Auto) 0.6 0.2 Eosinophils # (Auto) 0.2 0.0 Basophils # (Auto) 0.0 0.0 CBC Comment DIFF FINAL DIFF FINAL Differential Comment Prothrombin Time 10.3 Prothromb Time International 0.9 Ratio Activated Partial 24.3 Thromboplast Time Sodium Level 140 141 Potassium Level 4.3 4.9 Chloride Level 111 110 Carbon Dioxide Level 21.4 20.6 Anion Gap 8 10 Blood Urea Nitrogen 29 26 Creatinine 1.50 1.41 Estimat Glomerular Filtration 35 38 Rate Random Glucose 112 170 Lactic Acid Level 1.2 Calcium Level 9.7 9.3 Total Bilirubin 0.2 Aspartate Amino Transf 25 (AST/SGOT) Alanine Aminotransferase 26 (ALT/SGPT) Alkaline Phosphatase 168 Total Creatine Kinase 84 Troponin I 0.03 0.03 0.03 Total Protein 6.8 Albumin 3.0 Lipase 178 Urine Color LIGHT-YELLOW Urine Turbidity CLEAR Urine pH 7.0 Urine Specific [place] 1.009 Urine Protein 100 Urine Glucose (UA) 70 Urine Ketones NEG Urine Occult Blood NEG Urine Nitrite NEG Urine Bilirubin NEG Urine Urobilinogen LESS THAN 2.0 Urine Leukocyte Esterase NEG Urine RBC 1 Urine WBC 2 Urine Squamous Epithelial <1 Cells Urine Hyaline Casts 2 Microscopic Urinalysis Comment CATH-CULT NOT IND Result Diagram: 12/03/16 0329 12/03/16 0329 Imaging Last [address] 12/02/16 1556 Signed Impressions: Service Date/Time: Friday, December 02, 2016 17:19 - CONCLUSION: Normal examination. Rafa Gates MD Chest X-Ray 12/02/16 1530 Signed Impressions: Service Date/Time: Friday, December 02, 2016 15:54 - CONCLUSION: No acute disease. Rafa Gates MD Assessment and Plan Assessment and Plan Assessment Dizziness due hypoglycemia ASHD s/p PTCA/stent X 2 10/[address] Reddy HTN HLD DM COPD Renal insufficiency Plan: Patient is stable from cardiac standpoint. Follow up with Dr. Reddy next week Patient seen and evaluated by Lupe Hernández Dec 03, 2016 11:49
--- NOTE | 2016-12-03 12:01 | HHI.PR ---
Subjective Remarks Follow up for hypoglycemic episode. Patient reports she recently received a new box of Levemir, and on the box it stated to take Levemir 20 units twice a day instead of her normal 16 units twice a day. The patient assumed her physician has changed this dosing therefore she started taking the 20 units. She also reports that since her cardiac cath she hasn't had much of an appetite however she has still been eating. Yesterday she became very lethargic and was unarousable, EMS reported a blood sugar in the 30s upon arrival. Patient's blood sugar is now 170 this morning. The patient feels much better and she wants to go home. She denies any lightheadedness, dizziness, chest pain, shortness breath, or abdominal complaints. Objective Vitals Vital Signs Date Time Temp Pulse Resp B/P Pulse Ox O2 Delivery O2 Flow Rate FiO2 12/03/16 10:44 65 12/03/16 07:27 97.5 68 18 179/75 96 12/03/16 05:57 70 12/03/16 04:34 96.3 66 18 177/77 96 12/03/16 04:13 69 18 167/72 96 12/03/16 00:52 66 18 159/72 98 Room Air 12/02/16 21:29 97.7 68 18 189/84 98 Room Air 12/02/16 19:45 97.7 69 18 181/80 98 12/02/16 17:39 97.6 80 16 217/69 98 Room Air 12/02/16 15:45 99 18 98 Room Air 12/02/16 15:43 97 Room Air 12/02/16 15:30 94.7 59 237/102 97 I/O 12/02/16 12/02/16 12/02/16 12/03/16 12/03/16 12/03/16 07:00 15:00 23:00 07:00 15:00 23:00 Output Total 500 ml Balance -500 ml Output Urine Total 500 ml # Voids 1 Result Diagram: 12/03/16 0329 12/03/16 0329 Imaging Last Impressions Head CT 12/02/16 1556 Signed Impressions: Service Date/Time: Friday, December 02, 2016 17:19 - CONCLUSION: Normal examination. Rafa Gates MD Chest X-Ray 12/02/16 1530 Signed Impressions: Service Date/Time: Friday, December 02, 2016 15:54 - CONCLUSION: No acute disease. Rafa Gates MD Objective Remarks GENERAL: Well-nourished, well-developed female patient in NAD. SKIN: Warm and dry. No rash. HEAD: Normocephalic. Atraumatic. EYES: Pupils equal and round. No scleral icterus. No injection or drainage. ENT: No nasal bleeding or discharge. Mucous membranes pink and moist. NECK: Supple. Trachea midline. CARDIOVASCULAR: Regular rate and rhythm. S1, S2 noted. No murmur appreciated. RESPIRATORY: No accessory muscle use. Clear to auscultation. Breath sounds equal bilaterally. GASTROINTESTINAL: Abdomen soft, non-tender, nondistended. Normoactive bowel sounds x4. MUSCULOSKELETAL: No obvious deformities. Extremities without clubbing, cyanosis , or edema. NEUROLOGICAL: Awake and alert. No obvious cranial nerve deficits. Motor grossly within normal limits. Normal speech. PSYCHIATRIC: Appropriate mood and affect; insight and judgment normal. Medications and IVs Current Medications Medications (Trade) Dose Ordered Sig/Marie Route Start Time Stop Time Status Last Admin (Pepcid) 10 mg BID PRN PO 12/02/16 20:45 (Jocelyn-Colace) 2 tab DAILY PO 12/03/16 09:00 12/03/16 08:50 (Aldactone) 25 mg DAILY PO 12/03/16 09:00 12/03/16 08:50 (Vitamin B12) 2,500 mcg DAILY PO 12/03/16 09:00 12/03/16 08:50 Nitroglycerin 0.4 mg 0.4 mg Q5M PRN SL 12/02/16 20:00 (NS 1000 ml Inj) 1,000 ml @ 84 mls/hr [id number] IV 12/02/16 20:00 12/03/16 08:57 (Vasotec Inj) 2.5 mg Q6H PRN IV PUSH 12/02/16 20:00 (Catapres) 0.1 mg Q6H PRN PO 12/02/16 20:00 12/02/16 21:36 (Pill Splitter) 1 ea UNSCH PRN OTHER 12/02/16 20:45 (D50w (Vial) Inj) 25 ml UNSCH PRN IV PUSH 12/03/16 02:15 (Glucagon Inj) 1 mg UNSCH PRN OTHER 12/03/16 02:15 (Levemir Inj) 16 units BID SQ 12/03/16 09:00 12/03/16 08:57 (Vasotec Inj) 1.25 mg Q6H PRN IV 12/03/16 08:15 (Catapres) 0.1 mg Q6H PRN PO 12/03/16 08:15 Urinary Catheter: No Vascular Central Line Catheter: No A/P Problem List: (1) Nausea & vomiting ICD Code: R11.2 Status: Acute (2) Vertigo ICD Code: R42 Status: Acute (3) Hypoglycemia ICD Code: E16.2 Status: Acute (4) Acute kidney insufficiency ICD Code: N28.9 Status: Acute (5) Anemia, iron deficiency ICD Code: D50.9 Status: Chronic (6) Hypertension ICD Code: I10 Status: Chronic Assessment and Plan 65-year-old female with a history of diabetes, ME, anemia, COPD presented with: Hypoglycemia, upon admission blood glucose found to be 37 -secondary to accidental recently increased Levemir dosing from 16u bid to 20u bid, reportedly patient received new Levemir box with dosing of 20u bid -Accu-Cheks before meals and at bedtime -blood glucose now much improved, currently 170, symptoms resolved, will discharge home Nausea/vomiting, likely due to hypoglycemia -Antiemetics as needed -Diet as tolerated -symptoms resolved Dizziness/fatigue: suspect secondary to hypoglycemia as above -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 Colon ok to discharge from cardiac standpoint [facility] Labs: Creatinine 1.5, has been elevated in the past -Supportive IVF -BMP today still with Cr 1.41, trending down -Recommended to continue oral hydration after discharge, f/up with PCP Other chronic medical conditions hypertension, iron deficiency anemia and dyslipidemia. -Continue home medications ferrous sulfate, metoprolol, pravastatin and lisinopril DVT prophylaxis: Lovenox Written by Bruna Sauceda, acting as scribe for Dr. Gomez on 12/03/16 at 09:00. 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 Reddy Problem Qualifiers (1) Nausea & vomiting: Qualified Code: R11.2 - Non-intractable vomiting with nausea, unspecified vomiting type Bruna Sauceda PA-C Dec 03, 2016 12:01 Tony Gomez MD Dec 03, 2016 16:58
[2016-12-03 17:41] LABS: HEMOGLOBIN A1a 1.1 %; HEMOGLOBIN Ao 80.7 %; HEMOGLOBIN F 1.2 %; HEMOGLOBIN LA1C 2.5 %; HEMOGLOBIN P3 6.6 %
[2017-02-25] MEDS ORDERED: PNEU13P IM (10:33)
[2017-02-25] MEDS ORDERED: BACT800T5 PO (10:55)
== END 2016-12-03 11:50 | disposition home or self-care (01) ==
LOC: NEPC 15:26 → NEDA 19:49 → NEDH 23:49 → NEPFCDU 12-03 04:55
PROVIDERS: ADMIT Internal Medicine; ATTEND Internal Medicine
DX: E11.649 Type 2 diabetes mellitus with hypoglycemia without coma (principal); I25.10 Atherosclerotic heart disease of native coronary artery without angina pectoris; I10 Essential (primary) hypertension; I25.2 Old myocardial infarction; R94.31 Abnormal electrocardiogram [ECG] [EKG]; J45.909 Unspecified asthma, uncomplicated; J44.9 Chronic obstructive pulmonary disease, unspecified; D50.9 Iron deficiency anemia, unspecified; E78.5 Hyperlipidemia, unspecified; M19.90 Unspecified osteoarthritis, unspecified site; N17.9 Acute kidney failure, unspecified; Z95.5 Presence of coronary angioplasty implant and graft; Z87.891 Personal history of nicotine dependence
CPT/HCPCS: 70450; 71010; 80048; 80053; 81001; 82550; 82948; 83036; 83605; 83690; 84484; 85025; 85610; 85730; 93005; 96374; 96375; 97161; 99285; G0378; G8987; G8988; J1650; J2765; J7030; P9612

== ENCOUNTER 2017-01-19 17:20 | Emergency (ER) | payer MEDICARE, BC ==
[~2017-01-19] VITALS: Ht 152.4 cm; Wt 68.0 kg
[~2017-01-19 17:20] MED LIST changes: +CHEL50TA PO; +CYAN5SUB PO; -TRAM-492 PO; -VITA100T PO; -ZINC30TA2 PO
[2017-01-19 17:24] VITALS: BP 206/86; PULSE 62; RESP 18; TEMP 98.3; O2SAT 98
[2017-01-19 17:36] VITALS: BP 193/84; PULSE 59; RESP 18; O2SAT 98
[2017-01-19 17:42] VITALS: BP_SYST 188; BP_SYST 193; BP_DIAS 84; BP_DIAS 86; O2SAT 98
[2017-01-19] MEDS ORDERED: SODIUM CHLORIDE 0.9% FLUSH 5 ML FLUSH IVF PRN (17:45)
[2017-01-19] MEDS ORDERED: ASPIRIN 81 MG CHEW TAB PO ONE (17:45)
[2017-01-19 17:48] LABS: AUTOMATED NEUTROPHIL # 3.2 TH/MM3 (1.8-7.7); BASOPHIL % 0.8 % (0.0-2.0); EOSINOPHIL # 0.2 TH/MM3 (0-0.4); EOSINOPHIL % 3.1 % (0.0-4.0); HEMATOCRIT 31.7 % (35.0-46.0); HEMO FLAGS DIFF FINAL; LYMPH % 27.9 % (9.0-44.0); LYMPHOCYTE # 1.4 TH/MM3 (1.0-4.8); MEAN CELL VOLUME 85.9 FL (80.0-100.0); MEAN CORPUSCULAR HEMOGLOBIN 27.8 PG (27.0-34.0); MEAN CORPUSCULAR HGB CONC 32.4 % (32.0-36.0); MONO % 8.1 % (0.0-8.0); NEUT % 60.1 % (16.0-70.0); PLATELET COUNT 257 TH/MM3 (150-450); RED BLOOD COUNT 3.69 MIL/MM3 (4.00-5.30); RED CELL DISTRIBUTION WIDTH 13.9 % (11.6-17.2); WHITE BLOOD COUNT 5.2 TH/MM3 (4.0-11.0)
[2017-01-19 18:00] LABS: POTASSIUM 5.3 MEQ/L (3.5-5.1)
[2017-01-19 18:03] LABS: BICARBONATE 25.4 MEQ/L (21.0-32.0)
[2017-01-19 18:05] LABS: APTT (PATIENT) 23.9 SEC (24.3-30.1); INTERNATIONAL NORMALIZED RATIO 0.9 RATIO; MAGNESIUM 2.6 MG/DL (1.5-2.5); PROTHROMBIN TIME - PATIENT 9.9 SEC (9.8-11.6)
[2017-01-19] MEDS ORDERED: PRED10PA2 PO (18:05)
[2017-01-19] MEDS ORDERED: NORC5TAB PO (18:05)
--- NOTE | 2017-01-19 18:05 | PD ---
HPI . Sciatica Chief Complaint: Chest Pain Time Seen by Provider: 17:32 Travel History International Travel<30 days: No Contact w/Intl Traveler<30days: No Traveled to known affect area: No History of Present Illness HPI The patient's chief complaint out from was chest pain but her chief complaint to be the nurse is sciatica. She reports sciatica right leg for about 2 weeks. She states that she just could not get comfortable today was admitted to us for further evaluation and treatment. Patient states that she has had problems before but has been a number of years ago. She had to have surgery to decompress a nerve in her back. She states that she hasn't had any problems since then until about 2 weeks ago. She denies any bowel or bladder incontinence and she denies any fever. PFSH Past Medical History Hx Anticoagulant Therapy: Yes (EFFIENT) Anemia: Yes (iron deficiency) Arthritis: Yes Asthma: Yes Heart Rhythm Problems: No Cancer: No Cardiovascular Problems: Yes High Cholesterol: No Chest Pain: Yes Congestive Heart Failure: Yes COPD: No Cerebrovascular Accident: No Coronary Artery Disease: Yes Diabetes: Yes Patient Takes Glucophage: No Diminished Hearing: No Endocrine: No Gastrointestinal Disorders: No GERD: No Genitourinary: No Headaches: No Hepatitis: No Hiatal Hernia: Yes Hypertension: Yes Immune Disorder: No Implanted Vascular Access Dvce: No Kidney Stones: No Musculoskeletal: Yes (ARTHRITIS) Neurologic: Yes (LAMINECTOMY,SIATICA, NEUROPATHY) Psychiatric: No Reproductive: No Respiratory: Yes (COPD) Immunizations Current: No Migraines: Yes Myocardial Infarction: Yes (STENTS X 2) Renal Failure: No Seizures: No Sleep Apnea: No Thyroid Disease: No Ulcer: No Influenza Vaccination: Yes ?: Not Menopausal: Yes : 1 Para: 1 Miscarriage: 0 Past Surgical History Abdominal Surgery: Yes (appy) AICD: No Body Medical Devices: CARDIAC STENTS Cardiac Surgery: No Section: Yes Ear Surgery: No Endocrine Surgery: No Eye Surgery: No Genitourinary Surgery: No Gynecologic Surgery: Yes (C-SECT., HYSTERECTOMY) Hysterectomy: Yes Joint Replacement: No Neurologic Surgery: No Oral Surgery: Yes (TONSILS) Pacemaker: No Thoracic Surgery: No Tonsillectomy: Yes (ADENOIDS) Other Surgery: Yes (LEFT WRIST GANGLION CYST) Social History Alcohol Use: No Tobacco Use: No (QUIT 2001) Substance Use: No Allergies-Medications (Allergen,Severity, Reaction): Coded Allergies: Darvon (Verified Allergy, Mild, RASH, 12/02/16) Reported Meds & Prescriptions Reported Meds & Active Scripts Active [place] (Hydrocodone-Acetaminophen) 5-325 mg Tab 1 Tab PO Q4H PRN Prednisone (48) 10 mg tab Dose Pack (Prednisone) 10 Mg Dspk 10 Mg PO DIRECTED Levemir Inj (Insulin Detemir) 1,000 unit/ 10 ML Vial 16 Units SQ BID Reported Zinc (Zinc Gluconate) 50 Mg Tab 50 Mg PO DAILY B-12 (Cyanocobalamin) 2,500 Mcg Subl 2,500 Mcg PO DAILY Nitroglycerin SL (Nitroglycerin) 0.4 Mg Subl 0.4 Mg SL DIRECTED PRN ONE TABLET UNDER THE TONGUE NEEDED FOR CHEST PAIN, MAY REPEAT EVERY FIVE MINUTES FOR A TOTAL OF 3 DOSES OR CALL 911 IF NO RELIEF Isosorbide Mononitrate ER (Isosorbide Mononitrate) 30 Mg [place] 30 Mg PO DAILY Tylenol Extra Strength (Acetaminophen) 500 Mg Tab 500 Mg PO Q4-6H PRN Spironolactone 25 Mg Tab 25 Mg PO DAILY Pravastatin 40 Mg Tab 40 Mg PO DAILY Ranitidine (Ranitidine HCl) 150 Mg Cap 150 Mg PO DAILY PRN Jocelyn-Colace (Sennosides-Docusate Sodium) 8.6-50 Mg Tab 2 Tab PO DAILY Novolog Inj (Insulin Aspart) 1,000 Unit/10 Ml Vial Unknown Dose SQ ACHS Sliding Scale as directed. Metoprolol Tartrate 50 Mg Tab 50 Mg PO BID Lisinopril 20 Mg Tab 20 Mg PO DAILY Folic Acid 800 Mcg Tab 1,600 Mcg PO DAILY Ferrous Sulfate 325 Mg Tab 325 Mg PO DAILY Effient (Prasugrel) 10 Mg Tab 10 Mg PO DAILY Aspirin 81 Mg Chew 81 Mg CHEW DAILY Review of Systems Except as stated in HPI: all other systems reviewed are Neg General / Constitutional: No: Fever, Chills Cardiovascular: Positive: Chest Pain or Discomfort (this is a daily problem for this patient) Genitourinary: No: Incontinence Musculoskeletal: Positive: Pain (back pain radiating down the right leg) Neurologic: No: Weakness, Paresthesia, Incontinence Physical Exam Narrative GENERAL: This is a healthy-appearing older woman who is in no acute distress. She is in the room with another female. The room smells heavily of cigarette smoke. I do not know whether it is the patient or her visitor. SKIN: Warm and dry. HEAD: Atraumatic. Normocephalic. EYES: Pupils equal and round. ENT: No nasal bleeding or discharge. Mucous membranes pink and moist. NECK: Trachea midline. CARDIOVASCULAR: Regular rate and rhythm. Heart sounds are normal. RESPIRATORY: No accessory muscle use. Lungs are clear with full air movement throughout. GASTROINTESTINAL: Abdomen soft, non-tender, nondistended. MUSCULOSKELETAL: No obvious deformities. No edema. No tenderness to palpation. No pain with log rolling of the hip. She does seem to have some pain with straight leg raise at about 45 on the right. NEUROLOGICAL: Awake and alert. No obvious cranial nerve deficits. Motor grossly within normal limits. Normal speech. PSYCHIATRIC: Appropriate mood and affect; insight and judgment normal. Data Data Last Documented VS Vital Signs Date Time Temp Pulse Resp B/P Pulse Ox O2 Delivery O2 Flow Rate FiO2 01/19/17 17:42 98 Room Air 01/19/17 17:42 193/84 188/86 01/19/17 17:36 59 18 01/19/17 17:24 98.3 Orders Basic Metabolic Panel (Bmp) (01/19/17 17:32) Ckmb (Isoenzyme) Profile (01/19/17 17:32) Complete Blood Count With Diff (01/19/17 17:32) Magnesium (Mg) (01/19/17 17:32) Prothrombin Time / Inr (Pt) (01/19/17 17:32) Act Partial Throm Time (Ptt) (01/19/17 17:32) Troponin I (01/19/17 17:32) Chest, Single Ap (01/19/17 17:32) Ecg Monitoring (01/19/17 17:32) Bilateral Bp Monitoring (01/19/17 17:32) Iv Access Insert/Monitor (01/19/17 17:32) Oximetry (01/19/17 17:32) Oxygen Administration (01/19/17 17:32) Aspirin Chew (Aspirin Chew) (01/19/17 17:45) Sodium Chloride 0.9% Flush (Ns Flush) (01/19/17 17:45) Insulin Aspart Inj (Novolog Inj) (01/19/17 18:15) Labs Laboratory Tests Test 01/19/17 17:35 White Blood Count 5.2 TH/MM3 Red Blood Count 3.69 MIL/MM3 Hemoglobin 10.3 GM/DL Hematocrit 31.7 % Mean Corpuscular Volume 85.9 FL Mean Corpuscular Hemoglobin 27.8 PG Mean Corpuscular Hemoglobin 32.4 % Concent Red Cell Distribution Width 13.9 % Platelet Count 257 TH/MM3 Mean Platelet Volume 7.9 FL Neutrophils (%) (Auto) 60.1 % Lymphocytes (%) (Auto) 27.9 % Monocytes (%) (Auto) 8.1 % Eosinophils (%) (Auto) 3.1 % Basophils (%) (Auto) 0.8 % Neutrophils # (Auto) 3.2 TH/MM3 Lymphocytes # (Auto) 1.4 TH/MM3 Monocytes # (Auto) 0.4 TH/MM3 Eosinophils # (Auto) 0.2 TH/MM3 Basophils # (Auto) 0.0 TH/MM3 CBC Comment DIFF FINAL Differential Comment Prothrombin Time 9.9 SEC Prothromb Time International 0.9 RATIO Ratio Activated Partial 23.9 SEC Thromboplast Time Sodium Level 136 MEQ/L Potassium Level 5.3 MEQ/L Chloride Level 103 MEQ/L Carbon Dioxide Level 25.4 MEQ/L Anion Gap 8 MEQ/L Blood Urea Nitrogen 29 MG/DL Creatinine 1.40 MG/DL Estimat Glomerular Filtration 38 ML/MIN Rate Random Glucose 433 MG/DL Calcium Level 9.4 MG/DL Magnesium Level 2.6 MG/DL Total Creatine Kinase 80 U/L Troponin I 0.02 NG/ML Exceptions Acute Myocardial Infarction ASA Not Given on Arrival: Already taken by patient MDM Medical Decision Making Medical Screen Exam Complete: Yes Emergency Medical Condition: Yes Interpretation(s) EKG shows a sinus rhythm with an anterior fascicular block. No ST segment elevation or depression. Differential Diagnosis Differential diagnosis includes but is not limited to muscular low back pain, DDD, spinal stenosis, epidural abscess, sciatica, kidney infection or stone. Narrative Course Patient presents with the chief nurse sera. She reports daily chest pain since a cardiac catheterization stent revision done in November. The chest pain is not an acute problem today. CBC & BMP Diagram 01/19/17 17:35 CK and troponin are normal. I have given her 7 units of insulin for the hyperglycemia. Chest x-ray to my interpretation is negative for acute process. Diagnosis Primary Impression: Sciatica Qualified Code: M54.31 - Sciatica of right side Patient Instructions: General Instructions, Sciatica (ED) Scripts Hydrocodone-Acetaminophen ([place])5-325 mg Tab1 Tab PO Q4H PRN (PAIN) #12 TAB Ref 0 Prov:Carmela Aguirre MD 01/19/17 Prednisone (48) 10 mg tab Dose Pack 10 Mg Dspk10 Mg PO DIRECTED #1 DSPK Ref 0 Prov:Carmela Aguirre MD 01/19/17 Disposition: 01 DISCHARGE HOME Condition: Stable Carmela Aguirre MD Jan 19, 2017 18:05
[2017-01-19] MEDS ORDERED: INSULIN ASPART 1,000 UNITS/10 ML VIAL SQ ONE (18:15)
--- NOTE | 2017-01-19 18:35 | RADHPO ---
EXAM DATE/TIME: 01/19/2017 18:09 [facility] COMPARISON: CHEST SINGLE AP, December 02, 2016, 15:54. INDICATIONS : Chest pain for several months. MEDICAL HISTORY : Cardiovascular disease. Hypertension. Diabetes mellitus type 2. SURGICAL HISTORY : Heart catherization with stents. ENCOUNTER: Initial ACUITY: 2 months PAIN SCORE: 5/10 LOCATION: Bilateral chest FINDINGS: A single view of the chest demonstrates the lungs to be symmetrically aerated without evidence of mas s, infiltrate or effusion. The cardiomediastinal contours are unremarkable. Osseous structures are intact. CONCLUSION: No evidence of acute cardiopulmonary disease. Rafa Rocha MD on January 19, 2017 at 18:34 Board Certified Radiologist. This report was verified electronically.
--- NOTE | 2017-01-20 22:23 | EKG ---
Date Performed: 01/19/2017 Time Performed: 17:26:52 PTAGE: 66 years EKG: Sinus rhythm Possible left anterior fascicular block Cannot rule out septal infarct - age undetermined Left ventr icular hypertrophy Lateral ST-T changes Abnormal ECG PREVIOUS TRACING : 12/02/2016 14.46 Compared to prior tracing no significant change DOCTOR: Dunia Reddy Interpretating Date/Time 01/20/2017 22:21:24
[2017-02-25] MEDS ORDERED: PNEU13P IM (10:33)
[2017-02-25] MEDS ORDERED: BACT800T5 PO (10:55)
== END 2017-01-19 19:02 | disposition home or self-care (01) ==
LOC: PHED 17:20
DX: M54.31 Sciatica, right side (principal); E11.65 Type 2 diabetes mellitus with hyperglycemia; R94.31 Abnormal electrocardiogram [ECG] [EKG]; I10 Essential (primary) hypertension; I25.2 Old myocardial infarction; Z79.4 Long term (current) use of insulin; Z79.01 Long term (current) use of anticoagulants; Z86.2 Personal history of diseases of the blood and blood-forming organs and certain disorders involving the immune mechanism; Z87.39 Personal history of other diseases of the musculoskeletal system and connective tissue; Z87.09 Personal history of other diseases of the respiratory system; Z86.79 Personal history of other diseases of the circulatory system; Z86.69 Personal history of other diseases of the nervous system and sense organs; Z87.891 Personal history of nicotine dependence
CPT/HCPCS: 71010; 80048; 82550; 83735; 84484; 85025; 85610; 85730; 93005; 96372; 99283; J1815

== ENCOUNTER 2017-02-09 06:51 | Emergency (ER) | payer MEDICARE, BC ==
[~2017-02-09] VITALS: Ht 162.6 cm; Wt 30.5 kg
[~2017-02-09 06:51] MED LIST changes: +NORC5TAB PO; +PRED10PA2 PO
[2017-02-09 06:56] VITALS: BP 107/78; PULSE 64; RESP 18; O2SAT 97
--- NOTE | 2017-02-09 07:22 | PD ---
HPI Chief Complaint: Bite or Sting Time Seen by Provider: 07:03 Travel History International Travel<30 days: No Contact w/Intl Traveler<30days: No Traveled to known affect area: No History of Present Illness HPI The patient is a 66-year-old female who presents emergency department for dog bite to the right lower extremity. The patient was bit by one of her pet dogs at home after the dogs were involved in a fight. The patient was bit on the right lower extremity with extensive lacerations to the medial, anterior , lateral aspect of the right leg. The patient did wrap the laceration at home. She complains of pain over the affected area. The patient's last tetanus shot was 4 years ago after she was bit by one of her pet dogs at home once again. The patient denies any weakness or numbness the right lower extremity, however, does note the bites are extremely painful. Symptoms are moderate, exacerbated after being bit by one of her pet dogs, and there are no current alleviating factors. PFSH Past Medical History Hx Anticoagulant Therapy: Yes (EFFIENT) Anemia: Yes (iron deficiency) Arthritis: Yes Asthma: Yes Heart Rhythm Problems: No Cancer: No Cardiovascular Problems: Yes High Cholesterol: No Chest Pain: Yes Congestive Heart Failure: Yes COPD: No Cerebrovascular Accident: No Coronary Artery Disease: Yes Diabetes: Yes Diminished Hearing: No Endocrine: No Gastrointestinal Disorders: No GERD: No Genitourinary: No Headaches: No Hepatitis: No Hiatal Hernia: Yes Hypertension: Yes Immune Disorder: No Implanted Vascular Access Dvce: No Kidney Stones: No Musculoskeletal: Yes (ARTHRITIS) Neurologic: Yes (LAMINECTOMY,SIATICA, NEUROPATHY) Psychiatric: No Reproductive: No Respiratory: Yes Immunizations Current: No Migraines: Yes Myocardial Infarction: Yes (STENTS X 2) Renal Failure: No Seizures: No Sleep Apnea: No Thyroid Disease: No Ulcer: No ?: Not Menopausal: Yes : 1 Para: 1 Miscarriage: 0 Past Surgical History Abdominal Surgery: Yes (appy) AICD: No Body Medical Devices: CARDIAC STENTS Cardiac Surgery: No Section: Yes Ear Surgery: No Endocrine Surgery: No Eye Surgery: No Genitourinary Surgery: No Gynecologic Surgery: Yes (C-SECT., HYSTERECTOMY) Hysterectomy: Yes Joint Replacement: No Neurologic Surgery: No Oral Surgery: Yes (TONSILS) Pacemaker: No Thoracic Surgery: No Tonsillectomy: Yes (ADENOIDS) Other Surgery: Yes (LEFT WRIST GANGLION CYST) Social History Alcohol Use: No Tobacco Use: No (QUIT 2001) Substance Use: No Allergies-Medications (Allergen,Severity, Reaction): Coded Allergies: Darvon (Verified Allergy, Mild, RASH, 12/02/16) Reported Meds & Prescriptions Reported Meds & Active Scripts Active [place] (Hydrocodone-Acetaminophen) 5-325 mg Tab 1 Tab PO Q4H PRN Prednisone (48) 10 mg tab Dose Pack (Prednisone) 10 Mg Dspk 10 Mg PO DIRECTED Levemir Inj (Insulin Detemir) 1,000 unit/ 10 ML Vial 16 Units SQ BID Reported Zinc (Zinc Gluconate) 50 Mg Tab 50 Mg PO DAILY B-12 (Cyanocobalamin) 2,500 Mcg Subl 2,500 Mcg PO DAILY Nitroglycerin SL (Nitroglycerin) 0.4 Mg Subl 0.4 Mg SL DIRECTED PRN ONE TABLET UNDER THE TONGUE NEEDED FOR CHEST PAIN, MAY REPEAT EVERY FIVE MINUTES FOR A TOTAL OF 3 DOSES OR CALL 911 IF NO RELIEF Isosorbide Mononitrate ER (Isosorbide Mononitrate) 30 Mg [place] 30 Mg PO DAILY Tylenol Extra Strength (Acetaminophen) 500 Mg Tab 500 Mg PO Q4-6H PRN Spironolactone 25 Mg Tab 25 Mg PO DAILY Pravastatin 40 Mg Tab 40 Mg PO DAILY Ranitidine (Ranitidine HCl) 150 Mg Cap 150 Mg PO DAILY PRN Jocelyn-Colace (Sennosides-Docusate Sodium) 8.6-50 Mg Tab 2 Tab PO DAILY Novolog Inj (Insulin Aspart) 1,000 Unit/10 Ml Vial Unknown Dose SQ ACHS Sliding Scale as directed. Metoprolol Tartrate 50 Mg Tab 50 Mg PO BID Lisinopril 20 Mg Tab 20 Mg PO DAILY Folic Acid 800 Mcg Tab 1,600 Mcg PO DAILY Ferrous Sulfate 325 Mg Tab 325 Mg PO DAILY Effient (Prasugrel) 10 Mg Tab 10 Mg PO DAILY Aspirin 81 Mg Chew 81 Mg CHEW DAILY Review of Systems Except as stated in HPI: all other systems reviewed are Neg General / Constitutional: No: Fever Musculoskeletal: Positive: Pain Skin: Positive Other (as noted in the history present illness) Neurologic: No: Paresthesia, Sensory Disturbance Physical Exam Narrative GENERAL: Awake, alert, pleasant 66-year-old female who appears her stated age and is in no acute respiratory distress. SKIN: Warm and dry. HEAD: Atraumatic. Normocephalic. EYES: No injection or drainage. ENT: No nasal bleeding or discharge. Mucous membranes pink and moist. NECK: Trachea midline. No JVD. MUSCULOSKELETAL: Right lower extremity has multiple jagged laceration secondary to the bite on the mid to distal right tibia/fibular. There are 3 large avulsion/lacerations on the medial aspect, the largest measuring 10 cm, and 7 cm , and 6 cm. There 2 smaller wounds of the anterior aspect which are approximate 5 cm and 4 cm respectively and then 2 on the lateral aspect which measure approximately 5 cm and 5 cm. Positive distal pulse. Patient is able to plantarflex and dorsiflex. Patient is able to move all 5 toes the right foot. NEUROLOGICAL: Awake and alert. No obvious cranial nerve deficits. Motor grossly within normal limits. Normal speech. Sensation is intact to the medial , lateral, dorsal aspect of the right foot. PSYCHIATRIC: Appropriate mood and affect; insight and judgment normal. Data Data Last Documented VS Vital Signs Date Time Temp Pulse Resp B/P Pulse Ox O2 Delivery O2 Flow Rate FiO2 02/09/17 06:56 64 18 107/78 97 Orders Ampicillin-Sulbactam Inj (Unasyn Inj) (02/09/17 07:30) Morphine Inj (Morphine Inj) (02/09/17 07:30) Ondansetron Inj (Zofran Inj) (02/09/17 07:30) Sodium Chlorid 0.9% 500 Ml Inj (Ns 500 M (02/09/17 07:30) Tibia/Fibula (Ap/Lat) (02/09/17 ) [facility] Medical Decision Making Medical Screen Exam Complete: Yes Emergency Medical Condition: Yes Medical Record Reviewed: Yes Interpretation(s) X-ray tibia/fibula reveals extensive soft tissue injury distal leg. No acute bony abnormality. No foreign bodies. Differential Diagnosis Differential diagnosis includes laceration, dog bite, retained foreign body, fracture, tissue avulsion. Narrative Course IV was established, the patient was administered Unasyn 3 g intravenously, morphine 4 mg intravenously, Zofran 4 mg intravenously, and 500 cc of normal saline. X-ray the right tibia/fibula was obtained. X-ray reveals extensive soft tissue injury to the distal leg but no acute bony abnormality or foreign bodies. The patient's lacerations were irrigated and repaired by the mid-level provider, please refer to the procedure note. The patient will be discharged home on Augmentin and pain medications. She is advised to return in 24-48 hours for reevaluation of her wounds and/or follow-up with her primary physician. Return sooner if symptoms worsen or progress. Diagnosis Primary Impression: Dog bite of multiple sites of right lower extremity Qualified Code: S81.851A - Dog bite of multiple sites of right lower extremity , initial encounter Patient Instructions: General Instructions Additional Instructions: Augmentin and [place] as directed. Elevate leg. Monitor for signs of infection. Return in 24-48 hours for reevaluation of leg wound. Return sooner if symptoms worsen or progress. Med/Other Pt SpecificInfo: Prescription(s) given Scripts Hydrocodone-Acetaminophen ([place])5-325 mg Tab1 Tab PO Q6H PRN (PAIN) #20 TAB Ref 0 Prov:Quinton Tate MD 02/09/17 Amoxicillin-Clavulanate (Augmentin)875-125 mg [id number] Mg PO BID 10 Days Ref 0 not for use in CrCl <30 ml/min. Prov:Quinton Tate MD 02/09/17 Disposition: 01 DISCHARGE HOME Condition: Stable Quinton Tate MD Feb 09, 2017 07:22
[2017-02-09] MEDS ORDERED: AMPICILLIN-SULBACTAM INJ 3 GM in SODIUM CHLORIDE 0.9% INJ 100 ML IV ONE (07:30)
[2017-02-09] MEDS ORDERED: ONDANSETRON HCL 4 MG/2 ML VIAL IV PUSH ONE (07:30)
[2017-02-09] MEDS ORDERED: MORPHINE SULFATE 4 MG/ML INJ IV PUSH ONE (07:30)
[2017-02-09] MEDS ORDERED: SODIUM CHLORID 0.9% 500 ML INJ 500 ML IV ONE (07:30)
--- NOTE | 2017-02-09 07:46 | RADRPT ---
EXAM DATE/TIME: 02/09/2017 07:37 [place] COMPARISON: No previous studies available for comparison. INDICATIONS : Trauma, Dog bite closer to ankle joint MEDICAL HISTORY : None. SURGICAL HISTORY : None. ENCOUNTER: Initial ACUITY: 1 day PAIN SCORE: 0/10 LOCATION: Right Tib/Fib FINDINGS: Two view examination of the right tibia demonstrates no evidence of fracture or dislocation. Bony mi neralization is normal. Extensive soft tissue injury to the distal leg. No foreign bodies.. CONCLUSION: 1. Extensive soft tissue injury distal leg. 2. No acute bony abnormality. Je Fletcher MD on February 09, 2017 at 7:44 Board Certified Radiologist. This report was verified electronically.
[2017-02-09] MEDS ORDERED: NORC5TAB PO (07:52)
[2017-02-09] MEDS ORDERED: AUGM875T PO (07:52)
[2017-02-09] MEDS ORDERED: LIDOCAINE 1%/EPINEPHrine 1:100,000 SOLN 20 ML VIAL INFIL ONE (10:00)
--- NOTE | 2017-02-09 12:23 | PD ---
Physical Exam Time Seen by Provider: 12:09 Narrative She was initially evaluated by Dr. Tate. See his note. I repaired the lacerations to the right lower leg. Data Data Last Documented VS Vital Signs Date Time Temp Pulse Resp B/P Pulse Ox O2 Delivery O2 Flow Rate FiO2 02/09/17 06:56 64 18 107/78 97 Orders Ampicillin-Sulbactam Inj (Unasyn Inj) (02/09/17 07:30) Morphine Inj (Morphine Inj) (02/09/17 07:30) Ondansetron Inj (Zofran Inj) (02/09/17 07:30) Sodium Chlorid 0.9% 500 Ml Inj (Ns 500 M (02/09/17 07:30) Tibia/Fibula (Ap/Lat) (02/09/17 ) Lidocai-Epi 1%-1:100,000 Inj (Xylocaine- (02/09/17 10:00) MDM Medical Record Reviewed: Yes Supervised Visit with SORAYA: Yes Narrative Course I repaired the lacerations to the right lower leg. See procedure note for laceration repair. Procedures Procedure Narrative LACERATION LOCATION: Right medial lower leg LENGTH: 10cm NUMBER OF STITCHES/JES: 11 simple interrupted sutures REPAIR: The area of the laceration was prepped with Betadine and sterilely draped. The laceration was infiltrated with 1% lidocaine with epinephrine. The wound was copiously irrigated and explored without evidence of foreign body, tendon injury or neurovascular injury. The wound was closed using 4-0 Prolene. This was a single layer repair. A sterile dressing was applied. The patient was advised to keep the dressing clean and dry. Patient tolerated the procedure well. LACERATION LOCATION: Right medial uopper leg LENGTH: 20 cm L-shaped NUMBER OF STITCHES/JES: 23 simple interrupted sutures REPAIR: The area of the laceration was prepped with Betadine and sterilely draped. The laceration was infiltrated with 1% lidocaine with epinephrine. The wound was copiously irrigated and explored without evidence of foreign body, tendon injury or neurovascular injury. The wound was closed using 4-0 Prolene. This was a single layer repair. A sterile dressing was applied. The patient was advised to keep the dressing clean and dry. Patient tolerated the procedure well. LACERATION LOCATION:Right medial mid leg LENGTH: 8cm NUMBER OF STITCHES/JES: 6 simple interrupted sutures REPAIR: The area of the laceration was prepped with Betadine and sterilely draped. The laceration was infiltrated with 1% lidocaine with epinephrine. The wound was copiously irrigated and explored without evidence of foreign body, tendon injury or neurovascular injury. The wound was closed using 4-0 Prolene. This was a single layer repair. A sterile dressing was applied. The patient was advised to keep the dressing clean and dry. Patient tolerated the procedure well. LACERATION LOCATION: Right medial mid leg LENGTH: 1cm NUMBER OF STITCHES/JES: 1 simple interrupted sutures REPAIR: The area of the laceration was prepped with Betadine and sterilely draped. The laceration was infiltrated with 1% lidocaine with epinephrine. The wound was copiously irrigated and explored without evidence of foreign body, tendon injury or neurovascular injury. The wound was closed using 4-0 Prolene. This was a single layer repair. A sterile dressing was applied. The patient was advised to keep the dressing clean and dry. Patient tolerated the procedure well. LACERATION LOCATION: Right Mid del cid LENGTH: 6cm NUMBER OF STITCHES/JES: 5 simple interrupted sutures REPAIR: The area of the laceration was prepped with Betadine and sterilely draped. The laceration was infiltrated with 1% lidocaine with epinephrine. The wound was copiously irrigated and explored without evidence of foreign body, tendon injury or neurovascular injury. The wound was closed using 4-0 Prolene. This was a single layer repair. A sterile dressing was applied. The patient was advised to keep the dressing clean and dry. Patient tolerated the procedure well. LACERATION LOCATION: Right lateral lower leg LENGTH: 4cm NUMBER OF STITCHES/JES: 3 simple interrupted sutures REPAIR: The area of the laceration was prepped with Betadine and sterilely draped. The laceration was infiltrated with 1% lidocaine with epinephrine. The wound was copiously irrigated and explored without evidence of foreign body, tendon injury or neurovascular injury. The wound was closed using 4-0 Prolene. This was a single layer repair. A sterile dressing was applied. The patient was advised to keep the dressing clean and dry. Patient tolerated the procedure well. LACERATION LOCATION: Right lateral upper upper leg LENGTH: 8cm NUMBER OF STITCHES/JES: 7 simple interrupted sutures REPAIR: The area of the laceration was prepped with Betadine and sterilely draped. The laceration was infiltrated with 1% lidocaine with epinephrine. The wound was copiously irrigated and explored without evidence of foreign body, tendon injury or neurovascular injury. The wound was closed using 4-0 Prolene. This was a single layer repair. A sterile dressing was applied. The patient was advised to keep the dressing clean and dry. Patient tolerated the procedure well. LACERATION LOCATION: Right Posterior lower calf LENGTH: 4cm NUMBER OF STITCHES/JES: 3 simple interrupted sutures REPAIR: The area of the laceration was prepped with Betadine and sterilely draped. The laceration was infiltrated with 1% lidocaine with epinephrine. The wound was copiously irrigated and explored without evidence of foreign body, tendon injury or neurovascular injury. The wound was closed using 4-0 Prolene. This was a single layer repair. A sterile dressing was applied. The patient was advised to keep the dressing clean and dry. Patient tolerated the procedure well. LACERATION LOCATION: Right Posterior middle calf LENGTH: 1cm NUMBER OF STITCHES/JES: 1 simple interrupted sutures REPAIR: The area of the laceration was prepped with Betadine and sterilely draped. The laceration was infiltrated with 1% lidocaine with epinephrine. The wound was copiously irrigated and explored without evidence of foreign body, tendon injury or neurovascular injury. The wound was closed using 4-0 Prolene. This was a single layer repair. A sterile dressing was applied. The patient was advised to keep the dressing clean and dry. Patient tolerated the procedure well. LACERATION LOCATION: Right Posterior upper calf LENGTH: 1cm NUMBER OF STITCHES/JES: 1 simple interrupted sutures REPAIR: The area of the laceration was prepped with Betadine and sterilely draped. The laceration was infiltrated with 1% lidocaine with epinephrine. The wound was copiously irrigated and explored without evidence of foreign body, tendon injury or neurovascular injury. The wound was closed using 4-0 Prolene. This was a single layer repair. A sterile dressing was applied. The patient was advised to keep the dressing clean and dry. Patient tolerated the procedure well. Diagnosis Primary Impression: Dog bite of multiple sites of right lower extremity Qualified Code: S81.851A - Dog bite of multiple sites of right lower extremity , initial encounter Patient Instructions: General Instructions Additional Instruction: Augmentin and [place] as directed. Elevate leg. Monitor for signs of infection. Return in 24-48 hours for reevaluation of leg wound. Return sooner if symptoms worsen or progress. Scripts Hydrocodone-Acetaminophen ([place])5-325 mg Tab1 Tab PO Q6H PRN (PAIN) #20 TAB Ref 0 Prov:Quinton Tate MD 02/09/17 Amoxicillin-Clavulanate (Augmentin)875-125 mg [id number] Mg PO BID 10 Days Ref 0 not for use in CrCl <30 ml/min. Prov:Quinton Tate MD 02/09/17 Disposition: 01 DISCHARGE HOME Condition: Stable Tara Barragan Feb 09, 2017 12:23
[2017-02-09 13:18] VITALS: BP 132/65
[2017-02-25] MEDS ORDERED: PNEU13P IM (10:33)
[2017-02-25] MEDS ORDERED: BACT800T5 PO (10:55)
== END 2017-02-09 13:20 | disposition home or self-care (01) ==
LOC: NEPC 06:51
DX: S81.851A Open bite, right lower leg, initial encounter (principal); W54.0XXA Bitten by dog, initial encounter; J45.909 Unspecified asthma, uncomplicated; E11.9 Type 2 diabetes mellitus without complications; I10 Essential (primary) hypertension; Z79.01 Long term (current) use of anticoagulants
CPT/HCPCS: 12007; 73590; 96361; 96365; 96375; 99283; J0295; J2270; J2405; J7040

== ENCOUNTER 2017-02-17 10:00 | Emergency (ER) | payer MEDICARE, BC ==
[~2017-02-17] VITALS: Ht 162.6 cm; Wt 67.0 kg
[~2017-02-17 10:00] MED LIST changes: +AUGM875T PO
[2017-02-17 10:11] VITALS: BP 126/67; PULSE 62; RESP 16; TEMP 98.1; O2SAT 100
--- NOTE | 2017-02-17 10:39 | PD ---
HPI Chief Complaint: Wound/Suture/Staple Re-Check Time Seen by Provider: 10:18 Travel History International Travel<30 days: No Contact w/Intl Traveler<30days: No Traveled to known affect area: No History of Present Illness HPI 66-year-old woman with dog bite on 14, 8 days ago. It was her dog, they were fighting with another dog and her leg on the middle. She has multiple lacerations on her leg. She was instructed to come back for suture removal. History Past Medical History Narrative Medical Diabetes Menopausal: Yes : 1 Para: 1 Social History Alcohol Use: No Tobacco Use: No (QUIT 2001) Allergies-Medications (Allergen,Severity, Reaction): Coded Allergies: Darvon (Verified Allergy, Mild, RASH, 02/17/17) Reported Meds & Prescriptions Reported Meds & Active Scripts Active Lortab (Hydrocodone-Acetaminophen) 5-325 Mg Tab 1-2 Tab PO Q6H PRN [place] (Hydrocodone-Acetaminophen) 5-325 mg Tab 1 Tab PO Q6H PRN [place] (Hydrocodone-Acetaminophen) 5-325 mg Tab 1 Tab PO Q4H PRN Prednisone (48) 10 mg tab Dose Pack (Prednisone) 10 Mg Dspk 10 Mg PO DIRECTED Levemir Inj (Insulin Detemir) 1,000 unit/ 10 ML Vial 16 Units SQ BID Reported Zinc (Zinc Gluconate) 50 Mg Tab 50 Mg PO DAILY B-12 (Cyanocobalamin) 2,500 Mcg Subl 2,500 Mcg PO DAILY Nitroglycerin SL (Nitroglycerin) 0.4 Mg Subl 0.4 Mg SL DIRECTED PRN ONE TABLET UNDER THE TONGUE NEEDED FOR CHEST PAIN, MAY REPEAT EVERY FIVE MINUTES FOR A TOTAL OF 3 DOSES OR CALL 911 IF NO RELIEF Isosorbide Mononitrate ER (Isosorbide Mononitrate) 30 Mg [place] 30 Mg PO DAILY Tylenol Extra Strength (Acetaminophen) 500 Mg Tab 500 Mg PO Q4-6H PRN Spironolactone 25 Mg Tab 25 Mg PO DAILY Pravastatin 40 Mg Tab 40 Mg PO DAILY Ranitidine (Ranitidine HCl) 150 Mg Cap 150 Mg PO DAILY PRN Jocelyn-Colace (Sennosides-Docusate Sodium) 8.6-50 Mg Tab 2 Tab PO DAILY Novolog Inj (Insulin Aspart) 1,000 Unit/10 Ml Vial Unknown Dose SQ ACHS Sliding Scale as directed. Metoprolol Tartrate 50 Mg Tab 50 Mg PO BID Lisinopril 20 Mg Tab 20 Mg PO DAILY Folic Acid 800 Mcg Tab 1,600 Mcg PO DAILY Ferrous Sulfate 325 Mg Tab 325 Mg PO DAILY Effient (Prasugrel) 10 Mg Tab 10 Mg PO DAILY Aspirin 81 Mg Chew 81 Mg CHEW DAILY Review of Systems Except as stated in HPI: all other systems reviewed are Neg Physical Exam Narrative Gen.: Well-appearing 66-year-old woman Musculoskeletal: The right leg is multiple areas of laceration repaired with sutures. The smaller ones appear well approximated. There are several larger ones that are still little bit unhealed. There is a large area looks like it was a flap with her was a superficial blister and some superficial skin sloughing. There is no erythema or purulent drainage. There is some edema. Data Data Last Documented VS Vital Signs Date Time Temp Pulse Resp B/P Pulse Ox O2 Delivery O2 Flow Rate FiO2 02/17/17 10:11 98.1 62 16 126/67 100 MDM Medical Decision Making Medical Screen Exam Complete: No Emergency Medical Condition: No Differential Diagnosis Laceration, injuries, infection, other Narrative Course Medical decision-making 66 year-old woman dog bites to the leg. These are healing well but I think she needs more time before we should take the sutures out. She's keeping the leg elevated which is great. She is also using an David wrap to continue compression on the leg. I would continue this after sutures removed. I think she'll need a full 14 days for these ligaments to really feel. The remainder a lot of tension from swelling and edema when she takes them off. She should continue an David wrap and elevation for another week or 2 after the sutures are removed. With the edema she'll be at high risk of infection. They look good right now. I recommend that she come back in 5 days for repeat evaluation and suture removal at that time. Diagnosis Primary Impression: Dog bite of multiple sites of right lower extremity Additional Instructions: Return in 5 days for repeat evaluation, suture removal. Keep leg elevated. Keep David wrap on your leg when your up and walking. Med/Other Pt SpecificInfo: No Change to Meds Scripts Hydrocodone-Acetaminophen (Lortab)5-325 Mg Tab1-2 Tab PO Q6H PRN (PAIN) #12 TAB Prov:Viel,Bradley C. MD 02/17/17 Disposition: 01 DISCHARGE HOME Condition: Stable Bradley Laurent MD Feb 17, 2017 10:39 Bradley Laurent MD Feb 17, 2017 10:39
[2017-02-17] MEDS ORDERED: HYDR-3533 PO (10:43)
[2017-02-25] MEDS ORDERED: PNEU13P IM (10:33)
[2017-02-25] MEDS ORDERED: BACT800T5 PO (10:55)
== END 2017-02-17 10:59 | disposition home or self-care (01) ==
LOC: PHED 10:00
DX: Z04.3 Encounter for examination and observation following other accident (principal)
CPT/HCPCS: 99281

== ENCOUNTER 2017-02-23 08:45 | Emergency (ER) | payer MEDICARE, BC ==
[~2017-02-23] VITALS: Ht 165.1 cm; Wt 68.0 kg
[~2017-02-23 08:45] MED LIST changes: +HYDR-3533 PO
[2017-02-23 08:48] VITALS: BP 166/83; PULSE 72; RESP 16; TEMP 98.1; O2SAT 100
[2017-02-23] MEDS ORDERED: MUPI2%T TOPICAL (09:37)
--- NOTE | 2017-02-23 09:44 | PD ---
HPI Chief Complaint: Wound/Suture/Staple Re-Check Time Seen by Provider: 09:05 Travel History International Travel<30 days: No Contact w/Intl Traveler<30days: No Traveled to known affect area: No History of Present Illness HPI Patient is a 66-year-old female who presents to emergency room for evaluation of suture removal. Patient was bit by her dog on February 09, 2017 and had 61 sutures placed. Patient was here 5 days ago for suture removal, due to edema and swelling, she was told to return to the emergency room in 5 days for suture removal. Patient presents to emergency room here for suture removal. Patient reports no complications, no fevers or chills. Patient with no complaints at this time. PFSH Past Medical History Hx Anticoagulant Therapy: Yes (EFFENT) Anemia: Yes (iron deficiency) Arthritis: Yes Asthma: Yes Heart Rhythm Problems: No Cancer: No Cardiovascular Problems: Yes (NH, HTN, CHOL) High Cholesterol: No Chest Pain: Yes Congestive Heart Failure: Yes COPD: Yes Cerebrovascular Accident: No Coronary Artery Disease: Yes Diabetes: Yes Patient Takes Glucophage: No Diminished Hearing: No Endocrine: No Gastrointestinal Disorders: No GERD: No Genitourinary: No Headaches: No Hepatitis: No Hiatal Hernia: Yes Hypertension: Yes Immune Disorder: No Implanted Vascular Access Dvce: No Kidney Stones: No Medical other: No Musculoskeletal: Yes (ARTHRITIS) Neurologic: Yes (LAMINECTOMY,SIATICA, NEUROPATHY) Psychiatric: No Reproductive: No Respiratory: Yes (COPD) Immunizations Current: No Migraines: Yes Myocardial Infarction: Yes (STENTS X 2) Renal Failure: No Seizures: No Sleep Apnea: No Thyroid Disease: No Ulcer: No ?: Not Menopausal: Yes : 1 Para: 1 Miscarriage: 0 Past Surgical History Abdominal Surgery: Yes (appy) AICD: No Appendectomy: Yes Body Medical Devices: CARDIAC STENTS Cardiac Surgery: No Section: Yes Ear Surgery: No Endocrine Surgery: No Eye Surgery: No Genitourinary Surgery: No Gynecologic Surgery: Yes (C-SECT., HYSTERECTOMY) Hysterectomy: Yes Joint Replacement: No Neurologic Surgery: No Oral Surgery: Yes (TONSILS) Pacemaker: No Thoracic Surgery: No Tonsillectomy: Yes (ADENOIDS) Other Surgery: Yes (LEFT WRIST GANGLION CYST) Social History Alcohol Use: No Tobacco Use: No (QUIT 2001) Substance Use: No Allergies-Medications (Allergen,Severity, Reaction): Coded Allergies: Darvon (Verified Allergy, Mild, RASH, 02/23/17) Reported Meds & Prescriptions Reported Meds & Active Scripts Active Prednisone (48) 10 mg tab Dose Pack (Prednisone) 10 Mg Dspk 10 Mg PO DIRECTED Levemir Inj (Insulin Detemir) 1,000 unit/ 10 ML Vial 16 Units SQ BID Reported Zinc (Zinc Gluconate) 50 Mg Tab 50 Mg PO DAILY B-12 (Cyanocobalamin) 2,500 Mcg Subl 2,500 Mcg PO DAILY Nitroglycerin SL (Nitroglycerin) 0.4 Mg Subl 0.4 Mg SL DIRECTED PRN ONE TABLET UNDER THE TONGUE NEEDED FOR CHEST PAIN, MAY REPEAT EVERY FIVE MINUTES FOR A TOTAL OF 3 DOSES OR CALL 911 IF NO RELIEF Isosorbide Mononitrate ER (Isosorbide Mononitrate) 30 Mg Abbey 30 Mg PO DAILY Tylenol Extra Strength (Acetaminophen) 500 Mg Tab 500 Mg PO Q4-6H PRN Spironolactone 25 Mg Tab 25 Mg PO DAILY Pravastatin 40 Mg Tab 40 Mg PO DAILY Ranitidine (Ranitidine HCl) 150 Mg Cap 150 Mg PO DAILY PRN Jocelyn-Colace (Sennosides-Docusate Sodium) 8.6-50 Mg Tab 2 Tab PO DAILY Novolog Inj (Insulin Aspart) 1,000 Unit/10 Ml Vial Unknown Dose SQ ACHS Sliding Scale as directed. Metoprolol Tartrate 50 Mg Tab 50 Mg PO BID Lisinopril 20 Mg Tab 20 Mg PO DAILY Folic Acid 800 Mcg Tab 1,600 Mcg PO DAILY Ferrous Sulfate 325 Mg Tab 325 Mg PO DAILY Effient (Prasugrel) 10 Mg Tab 10 Mg PO DAILY Aspirin 81 Mg Chew 81 Mg CHEW DAILY Review of Systems General / Constitutional: No: Fever Eyes: No: Visual changes HENT: No: Headaches Cardiovascular: No: Chest Pain or Discomfort Respiratory: No: Shortness of Breath Gastrointestinal: No: Abdominal Pain Genitourinary: No: Dysuria Musculoskeletal: No: Pain Skin: No Rash Neurologic: No: Weakness Psychiatric: No: Depression Endocrine: No: Polydipsia Hematologic/Lymphatic: No: Easy Bruising Physical Exam Narrative GENERAL: Well-nourished, well-developed patient. SKIN: Warm and dry. HEAD: Normocephalic. EYES: No scleral icterus. No injection or drainage. NECK: Supple, trachea midline. No JVD or lymphadenopathy. CARDIOVASCULAR: Regular rate and rhythm without murmurs, gallops, or rubs. RESPIRATORY: Breath sounds equal bilaterally. No accessory muscle use. GASTROINTESTINAL: Abdomen soft, non-tender, nondistended. MUSCULOSKELETAL: Right lower extremity with sutures in placed, healing wound with mild edema surrounding wound, no streaking, no calf tenderness, negative Homans sign, LLE: normal exam BACK: Nontender without obvious deformity. No CVA tenderness. Data Data Last Documented VS Vital Signs Date Time Temp Pulse Resp B/P Pulse Ox O2 Delivery O2 Flow Rate FiO2 02/23/17 08:48 98.1 72 16 166/83 100 MDM Medical Decision Making Medical Screen Exam Complete: Yes Emergency Medical Condition: Yes Interpretation(s) Vital Signs Date Time Temp Pulse Resp B/P Pulse Ox O2 Delivery O2 Flow Rate FiO2 02/23/17 08:48 98.1 72 16 166/83 100 Differential Diagnosis Suture removal, wound dehiscence Narrative Course Patient is a 66-year-old female who returns to emergency room for suture removal. Patient was bit by dog on February 09, 2017. She had 61 sutures placed to her right lower extremity, she reports that she was seen in the emergency room 5 days ago and was told to come back to the emergency room today for suture removal. Reports that she did complete her full course of Augmentin as prescribed on February 09. Patient with no fevers or chills. Patient with no other complaints at this time. 61 sutures were removed, she does have slight wound dehiscence, steri- strips were placed. Signs of infection was reviewed with patient. Discussed with her need to follow up with primary care doctor. Signs and symptoms of when to return to the emergency room was reviewed with patient in detail. Understands need to return to emergency room in 48 hours for wound reevaluation. She will return to the emergency room earlier if she develops any signs of infection Procedures Procedure Narrative Suture removal: using a suture removal kit, 61 single interrupted sutures removed from her right lower extremity without difficulty Diagnosis Primary Impression: Visit for suture removal Additional Impressions: Visit for wound check Wound dehiscence Patient Instructions: General Instructions Additional Instructions: Please follow-up with your primary care doctor Return to the emergency room in 48 hours for wound check Please keep area clean, and covered in gauze and camila bandage Return to emergency room if you develop any symptoms of fevers, chills, increased redness or streaking up the leg. Med/Other Pt SpecificInfo: Prescription(s) given Scripts Mupirocin Topical (Bactroban Topical)2 % Cream1 Applic TOPICAL BID #1 TUBE Ref 0 Prov:Venita Chow DO 02/23/17 Disposition: 01 DISCHARGE HOME Condition: Stable Venita Chow DO Feb 23, 2017 09:44
[2017-02-25] MEDS ORDERED: PNEU13P IM (10:33)
[2017-02-25] MEDS ORDERED: BACT800T5 PO (10:55)
== END 2017-02-23 10:12 | disposition home or self-care (01) ==
LOC: PHEFT 08:45
DX: Z48.02 Encounter for removal of sutures (principal)
CPT/HCPCS: 99281

== ENCOUNTER 2017-02-25 13:08 | Inpatient (IN) | payer MEDICARE, BC ==
[~2017-02-25] VITALS: Ht 162.6 cm; Wt 72.5 kg
[~2017-02-25 13:08] MED LIST changes: -AUGM875T PO; +BACT800T5 PO; -HYDR-3533 PO; +MUPI2%T TOPICAL; -NORC5TAB PO; +PNEU13P IM
[2017-02-25 13:28] VITALS: BP 136/67; PULSE 85; RESP 16; TEMP 99.1; O2SAT 98
[2017-02-25] MEDS ORDERED: ONDANSETRON HCL 4 MG/2 ML VIAL IV PUSH ONE (14:00)
[2017-02-25] MEDS ORDERED: MORPHINE SULFATE 4 MG/ML INJ IV ONE (14:00)
[2017-02-25] MEDS ORDERED: AMPICILLIN-SULBACTAM INJ 3 GM in SODIUM CHLORIDE 0.9% INJ 100 ML IV ONE (14:00)
--- NOTE | 2017-02-25 14:00 | PD ---
HPI Chief Complaint: Musculoskeletal Complaint Time Seen by Provider: 14:00 Travel History International Travel<30 days: No Contact w/Intl Traveler<30days: No Traveled to known affect area: No PFSH Past Medical History Hx Anticoagulant Therapy: Yes Anemia: Yes (iron deficiency) Arthritis: Yes Asthma: Yes Heart Rhythm Problems: No Cancer: No Cardiovascular Problems: Yes (htn on med, Hx [place] with stents) High Cholesterol: No Chest Pain: Yes Congestive Heart Failure: Yes COPD: Yes Cerebrovascular Accident: No Coronary Artery Disease: Yes Diabetes: Yes (type 1) Diminished Hearing: No Endocrine: No Gastrointestinal Disorders: No GERD: No Genitourinary: No Headaches: No Hepatitis: No Hiatal Hernia: Yes Hypertension: Yes Immune Disorder: No Implanted Vascular Access Dvce: No Kidney Stones: No Musculoskeletal: Yes (ARTHRITIS) Neurologic: Yes (LAMINECTOMY,SIATICA, NEUROPATHY) Psychiatric: No Reproductive: No Respiratory: Yes (copd) Immunizations Current: No Migraines: Yes Myocardial Infarction: Yes (STENTS X 2) Renal Failure: No Seizures: No Sleep Apnea: No Thyroid Disease: No Ulcer: No ?: Not Menopausal: Yes : 1 Para: 1 Miscarriage: 0 Past Surgical History Abdominal Surgery: Yes (appy) AICD: No Appendectomy: Yes Body Medical Devices: CARDIAC STENTS Cardiac Surgery: No Section: Yes Ear Surgery: No Endocrine Surgery: No Eye Surgery: No Genitourinary Surgery: No Gynecologic Surgery: Yes (C-SECT., HYSTERECTOMY) Hysterectomy: Yes Joint Replacement: No Neurologic Surgery: No Oral Surgery: Yes (TONSILS) Pacemaker: No Thoracic Surgery: No Tonsillectomy: Yes (ADENOIDS) Other Surgery: Yes (LEFT WRIST GANGLION CYST) Social History Alcohol Use: No Tobacco Use: No (QUIT 2001) Substance Use: No Allergies-Medications (Allergen,Severity, Reaction): Coded Allergies: Darvon (Verified Allergy, Mild, RASH, 02/25/17) Reported Meds & Prescriptions Reported Meds & Active Scripts Active Levemir Inj (Insulin Detemir) 1,000 unit/ 10 ML Vial 16 Units SQ BID Reported Zinc (Zinc Gluconate) 50 Mg Tab 50 Mg PO DAILY B-12 (Cyanocobalamin) 2,500 Mcg Subl 2,500 Mcg PO DAILY Nitroglycerin SL (Nitroglycerin) 0.4 Mg Subl 0.4 Mg SL DIRECTED PRN ONE TABLET UNDER THE TONGUE NEEDED FOR CHEST PAIN, MAY REPEAT EVERY FIVE MINUTES FOR A TOTAL OF 3 DOSES OR CALL 911 IF NO RELIEF Isosorbide Mononitrate ER (Isosorbide Mononitrate) 30 Mg Abbey 30 Mg PO DAILY Spironolactone 25 Mg Tab 25 Mg PO DAILY Pravastatin 40 Mg Tab 40 Mg PO DAILY Ranitidine (Ranitidine HCl) 150 Mg Cap 150 Mg PO DAILY PRN Jocelyn-Colace (Sennosides-Docusate Sodium) 8.6-50 Mg Tab 2 Tab PO DAILY Novolog Inj (Insulin Aspart) 1,000 Unit/10 Ml Vial Unknown Dose SQ ACHS Sliding Scale as directed. Metoprolol Tartrate 50 Mg Tab 50 Mg PO BID Lisinopril 20 Mg Tab 20 Mg PO DAILY Folic Acid 800 Mcg Tab 1,600 Mcg PO DAILY Ferrous Sulfate 325 Mg Tab 325 Mg PO TID Effient (Prasugrel) 10 Mg Tab 10 Mg PO DAILY Aspirin 81 Mg Chew 81 Mg CHEW DAILY Data Data Last Documented VS Vital Signs Date Time Temp Pulse Resp B/P Pulse Ox O2 Delivery O2 Flow Rate FiO2 02/25/17 13:28 99.1 85 16 136/67 98 Orders Us Leg Venous Doppler (02/25/17 13:56) Jojo Hendrickson Feb 25, 2017 14:00
[2017-02-25 14:46] LABS: AUTOMATED NEUTROPHIL # 4.6 TH/MM3 (1.8-7.7); BASOPHIL % 0.6 % (0.0-2.0); EOSINOPHIL # 0.1 TH/MM3 (0-0.4); EOSINOPHIL % 1.2 % (0.0-4.0); HEMATOCRIT 23.9 % (35.0-46.0); HEMO FLAGS DIFF FINAL; LYMPH % 19.2 % (9.0-44.0); LYMPHOCYTE # 1.2 TH/MM3 (1.0-4.8); MEAN CELL VOLUME 90.7 FL (80.0-100.0); MEAN CORPUSCULAR HEMOGLOBIN 29.1 PG (27.0-34.0); MEAN CORPUSCULAR HGB CONC 32.1 % (32.0-36.0); MONO % 6.7 % (0.0-8.0); NEUT % 72.3 % (16.0-70.0); PLATELET COUNT 547 TH/MM3 (150-450); RED BLOOD COUNT 2.63 MIL/MM3 (4.00-5.30); RED CELL DISTRIBUTION WIDTH 14.9 % (11.6-17.2); WHITE BLOOD COUNT 6.4 TH/MM3 (4.0-11.0)
--- NOTE | 2017-02-25 14:46 | PD ---
HPI . Wound check Chief Complaint: Musculoskeletal Complaint Time Seen by Provider: 13:59 Travel History International Travel<30 days: No Contact w/Intl Traveler<30days: No Traveled to known affect area: No History of Present Illness HPI Patient presents for wound check of the right lower extremity. Patient was initially seen here on 02/09 with an extensive dog bite to the right lower extremity. She was given Unasyn 3 g IV. The wounds were repaired. Discharged on Augmentin. She reports that she took the Augmentin as directed until it was completed. The patient returned to the emergency department on 02/17 for wound check and probable suture removal. The wounds looked good at that time but they did not appear to be adequately healed. Therefore the sutures were left in place and she was told to follow-up 5 days later. Patient was seen here 2 days ago for suture removal. The sutures were removed. The wound reportedly did not appear infected at that time. The patient now presents with an angry-appearing right lower extremity along with some pain and swelling. She is concerned about possible DVT. [id number]: Right lower leg SEVERITY:9 DURATION:02/09 TIMING: The wound initially seemed to be doing well until yesterday or the day before when it started getting worse CONTEXT: She was bitten by her own dog ASSOCIATED SYMPTOMS: No associated fevers or chills PFSH Past Medical History Hx Anticoagulant Therapy: Yes Anemia: Yes (iron deficiency) Arthritis: Yes Asthma: Yes Heart Rhythm Problems: No Cancer: No Cardiovascular Problems: Yes (htn on med, Hx [place] with stents) High Cholesterol: No Chest Pain: Yes Congestive Heart Failure: Yes COPD: Yes Cerebrovascular Accident: No Coronary Artery Disease: Yes Diabetes: Yes (type 1) Patient Takes Glucophage: No Diminished Hearing: No Endocrine: No Gastrointestinal Disorders: No GERD: No Genitourinary: No Headaches: No Hepatitis: No Hiatal Hernia: Yes Hypertension: Yes Immune Disorder: No Implanted Vascular Access Dvce: No Kidney Stones: No Musculoskeletal: Yes (ARTHRITIS) Neurologic: Yes (LAMINECTOMY,SIATICA, NEUROPATHY) Psychiatric: No Reproductive: No Respiratory: Yes (copd) Immunizations Current: No Migraines: Yes Myocardial Infarction: Yes (STENTS X 2) Renal Failure: No Seizures: No Sleep Apnea: No Thyroid Disease: No Ulcer: No Tetanus Vaccination: < 5 Years ?: Not Menopausal: Yes : 1 Para: 1 Miscarriage: 0 Past Surgical History Abdominal Surgery: Yes (appy) AICD: No Appendectomy: Yes Body Medical Devices: CARDIAC STENTS Cardiac Surgery: No Section: Yes Ear Surgery: No Endocrine Surgery: No Eye Surgery: No Genitourinary Surgery: No Gynecologic Surgery: Yes (C-SECT., HYSTERECTOMY) Hysterectomy: Yes Joint Replacement: No Neurologic Surgery: No Oral Surgery: Yes (TONSILS) Pacemaker: No Thoracic Surgery: No Tonsillectomy: Yes (ADENOIDS) Other Surgery: Yes (LEFT WRIST GANGLION CYST) Social History Alcohol Use: No Tobacco Use: No (QUIT 2001) Substance Use: No Allergies-Medications (Allergen,Severity, Reaction): Coded Allergies: Darvon (Verified Allergy, Mild, RASH, 02/25/17) Reported Meds & Prescriptions Reported Meds & Active Scripts Active Levemir Inj (Insulin Detemir) 1,000 unit/ 10 ML Vial 16 Units SQ BID Reported Zinc (Zinc Gluconate) 50 Mg Tab 50 Mg PO DAILY B-12 (Cyanocobalamin) 2,500 Mcg Subl 2,500 Mcg PO DAILY Nitroglycerin SL (Nitroglycerin) 0.4 Mg Subl 0.4 Mg SL DIRECTED PRN ONE TABLET UNDER THE TONGUE NEEDED FOR CHEST PAIN, MAY REPEAT EVERY FIVE MINUTES FOR A TOTAL OF 3 DOSES OR CALL 911 IF NO RELIEF Isosorbide Mononitrate ER (Isosorbide Mononitrate) 30 Mg Abbey 30 Mg PO DAILY Spironolactone 25 Mg Tab 25 Mg PO DAILY Pravastatin 40 Mg Tab 40 Mg PO DAILY Ranitidine (Ranitidine HCl) 150 Mg Cap 150 Mg PO DAILY PRN Jocelyn-Colace (Sennosides-Docusate Sodium) 8.6-50 Mg Tab 2 Tab PO DAILY Novolog Inj (Insulin Aspart) 1,000 Unit/10 Ml Vial Unknown Dose SQ ACHS Sliding Scale as directed. Metoprolol Tartrate 50 Mg Tab 50 Mg PO BID Lisinopril 20 Mg Tab 20 Mg PO DAILY Folic Acid 800 Mcg Tab 1,600 Mcg PO DAILY Ferrous Sulfate 325 Mg Tab 325 Mg PO TID Effient (Prasugrel) 10 Mg Tab 10 Mg PO DAILY Aspirin 81 Mg Chew 81 Mg CHEW DAILY Review of Systems Except as stated in HPI: all other systems reviewed are Neg General / Constitutional: No: Fever, Chills Musculoskeletal: Positive: Myalgias Skin: Positive Other (large skin defect on the right lower extremity) Physical Exam Narrative GENERAL: Healthy-appearing older woman who is in no acute distress. SKIN: Warm and dry. She has a large area of necrotic tissue on the right lower extremity. It is "soupy." She has some associated bruising and swelling of the calf. HEAD: Atraumatic. Normocephalic. EYES: Pupils equal and round. ENT: No nasal bleeding or discharge. Mucous membranes pink and moist. NECK: Trachea midline. CARDIOVASCULAR: Regular rate and rhythm. RESPIRATORY: No accessory muscle use. GASTROINTESTINAL: Abdomen soft, non-tender, nondistended. MUSCULOSKELETAL: No obvious deformities. No edema. NEUROLOGICAL: Awake and alert. No obvious cranial nerve deficits. Motor grossly within normal limits. Normal speech. PSYCHIATRIC: Appropriate mood and affect; insight and judgment normal. Data Data Last Documented VS Vital Signs Date Time Temp Pulse Resp B/P Pulse Ox O2 Delivery O2 Flow Rate FiO2 02/25/17 13:28 99.1 85 16 136/67 98 Orders Us Leg Venous Doppler (02/25/17 13:56) Basic Metabolic Panel (Bmp) (02/25/17 13:59) Complete Blood Count With Diff (02/25/17 13:59) Blood Culture (02/25/17 13:59) Wound Culture And Gram Stain (02/25/17 13:59) Iv Access Insert/Monitor (02/25/17 13:59) Ampicillin-Sulbactam Inj (Unasyn Inj) (02/25/17 14:00) Morphine Inj (Morphine Inj) (02/25/17 14:00) Ondansetron Inj (Zofran Inj) (02/25/17 14:00) Labs Laboratory Tests Test 02/25/17 14:26 White Blood Count 6.4 TH/MM3 Red Blood Count 2.63 MIL/MM3 Hemoglobin 7.7 GM/DL Hematocrit 23.9 % Mean Corpuscular Volume 90.7 FL Mean Corpuscular Hemoglobin 29.1 PG Mean Corpuscular Hemoglobin 32.1 % Concent Red Cell Distribution Width 14.9 % Platelet Count 547 TH/MM3 Mean Platelet Volume 7.3 FL Neutrophils (%) (Auto) 72.3 % Lymphocytes (%) (Auto) 19.2 % Monocytes (%) (Auto) 6.7 % Eosinophils (%) (Auto) 1.2 % Basophils (%) (Auto) 0.6 % Neutrophils # (Auto) 4.6 TH/MM3 Lymphocytes # (Auto) 1.2 TH/MM3 Monocytes # (Auto) 0.4 TH/MM3 Eosinophils # (Auto) 0.1 TH/MM3 Basophils # (Auto) 0.0 TH/MM3 CBC Comment DIFF FINAL Differential Comment Sodium Level 140 MEQ/L Potassium Level 4.9 MEQ/L Chloride Level 107 MEQ/L Carbon Dioxide Level 24.8 MEQ/L Anion Gap 8 MEQ/L Blood Urea Nitrogen 22 MG/DL Creatinine 1.20 MG/DL Estimat Glomerular Filtration 45 ML/MIN Rate Random Glucose 232 MG/DL Calcium Level 9.3 MG/DL MDM Medical Decision Making Medical Screen Exam Complete: Yes Emergency Medical Condition: Yes Medical Record Reviewed: Yes (please see her history of present illness for review of recent records) Differential Diagnosis My differential diagnosis includes but is not limited to localized wound infection, cellulitis, abscess Narrative Course Patient presents for a wound problem. She was bitten by dog 2 weeks ago. She comes in now with necrotic tissue. CBC & BMP Diagram 02/25/17 14:26 Her previous hemoglobin was about 10. Physician Communication Physician Communication Case was discussed with Dr. Delacruz who will see the patient in consultation with the hospitalist at [facility]. Diagnosis Primary Impression: Dog bite of multiple sites of right lower extremity Qualified Code: S81.851D - Dog bite of multiple sites of right lower extremity , subsequent encounter Additional Impression: Anemia Qualified Code: D64.9 - Anemia, unspecified type Admitting Information Admitting Physician Requests: Admit Condition: Stable Carmela Aguirre MD Feb 25, 2017 14:46
[2017-02-25 15:01] LABS: POTASSIUM 4.9 MEQ/L (3.5-5.1)
[2017-02-25 15:04] LABS: BICARBONATE 24.8 MEQ/L (21.0-32.0)
[2017-02-25] MEDS ORDERED: NALOXONE HCL 0.4 MG/ML AMP IV PRN (15:30)
[2017-02-25] MEDS ORDERED: SODIUM CHLORIDE 0.9% FLUSH 10 ML FLUSH IV FLUSH PRN (15:30)
[2017-02-25] MEDS ORDERED: GLUCAGON 1 MG/ML VIAL OTHER PRN (15:30)
[2017-02-25] MEDS ORDERED: DEXTROSE 50% IN WATER 50 ML VIAL(D50) IV PUSH PRN (15:30)
--- NOTE | 2017-02-25 15:37 | RADHPO ---
EXAM DATE/TIME: 02/25/2017 14:49 [facility] COMPARISON: No previous studies available for comparison. INDICATIONS : Right leg pain. MEDICAL HISTORY : Myocardial infarction. Chronic obstructive pulmonary disease. Hypertension. CHF. CAD. A-Fib. Hiata l hernia. Sciatica. Neuropathy. Arthritis. Anemia. SURGICAL HISTORY : Tonsillectomy. section. Appendectomy. Coronary artery stent. Hysterectomy. Laminectomy. Lef t knee surgery. ENCOUNTER: Initial ACUITY: 2 weeks PAIN SCORE: 8/10 LOCATION: Right leg. TECHNIQUE: Venous ultrasound of the leg was performed from the inguinal ligament to the proximal calf. Real-sandeep e, color Doppler and spectral tracing, compression and augmentation techniques were used. FINDINGS: There is normal compressibility of the deep venous system from the inguinal region to the proximal ca lf. No echogenic clot is seen in the lumen of the common femoral, femoral, popliteal, and posterior tibial veins. There is a normal response of the venous system to proximal and distal augmentation an d respiration. CONCLUSION: No evidence of right lower extremity DVT. Dwain Estevez MD on February 25, 2017 at 15:35 Board Certified Radiologist. This report was verified electronically.
[2017-02-25] MEDS ORDERED: FAMOTIDINE 20 MG TAB PO PRN (15:45)
[2017-02-25 16:13] VITALS: BP 199/75; PULSE 69; RESP 16; O2SAT 97
[2017-02-25 16:52] VITALS: BP 200/72; PULSE 72; RESP 14; O2SAT 100
[2017-02-25] MEDS ORDERED: SODIUM CHLOR 0.9% 250 ML INJ 250 ML IV ONE (17:45)
[2017-02-25 17:55] VITALS: BP 205/91; PULSE 62; RESP 18
[2017-02-25] MEDS ORDERED: diphenhydrAMINE HCL 25 MG CAP PO PRN (18:00)
[2017-02-25] MEDS ORDERED: ACETAMINOPHEN 325 MG TAB PO PRN (18:00)
[2017-02-25] MEDS: FERROUS SULFATE 325 MG (65 MG ELEMENTAL IRON) TAB PO SCH (18:00)
--- NOTE | 2017-02-25 18:51 | MB ---
cc: RUSSELL ZIMMER MD DATE OF CONSULTATION 02/25/[address] Prabhakar. REASON FOR CONSULTATION Hematology consulted to render opinion regarding patient with history of chronic anemia now with worsening anemia. HISTORY OF PRESENT ILLNESS The patient is a very pleasant 66-year-old female with history of chronic anemia. She has been under the care of Dr. Schmidt. The patient has had two bone marrow biopsies and thought to have iron deficiency anemia as well as possible low grade myelodysplastic syndrome. She has had few transfusion over last year. Her last transfusion was September as it stated that her anemia was improving with iron supplement. However, on February 09 she was bitten by one of her own dogs. She stated that she bled significantly. She came to emergency room and the wound was sutured. She stated that it has been oozing blood since that time. About a week ago the wound started looking worse and more erythematous. She came back today with more pain and swelling of her right lower extremity. She had an ultrasound which did not show any DVT. She was found to have hemoglobin of 7.7. Hematology was consulted. The patient has increased weakness and fatigue. She denies any fever or chills. She denies any chest pain. She denies shortness of breath or cough. She denies any syncope or dizziness. She has no GI bleeding. She denies any dysuria or hematuria. She has been taking her ferrous sulfate three times a day. PAST MEDICAL HISTORY 1. Chronic anemia as above. 2. Arthritis. 3. Asthma, 4. COPD, 5. Coronary artery disease, 6. Diabetes, 7. Hypertension, 8. Hiatal hernia 9. Peripheral neuropathy 10. Zinc deficiency. PAST SURGICAL HISTORY 1. Laminectomy 2. Coronary stent placement, 3. Appendectomy, 4. , 5. Tonsillectomy, 6. Hysterectomy, 7. Left wrist ganglion cyst 8. Bone marrow biopsy twice. SOCIAL HISTORY Quit tobacco in 2001. Denies alcohol use. FAMILY HISTORY Noncontributory. ALLERGIES DARVON MEDICATIONS Current medication 1. Aspirin 2. Imdur 3. Prinivil 4. 5. Pravachol. 6. Aldactone. 7. Metoprolol. 8. Ferrous sulfate. REVIEW OF SYSTEMS CONSTITUTIONAL: Denies any fever, chills, night sweat, weight loss. EYES: Denies any blurred vision, double vision. ENT: Denies mouth sores or voice changes. CARDIOVASCULAR: No chest pressure, palpitation RESPIRATORY: Denies shortness of breath or cough. GI: Denies any melena, hematochezia. No nausea, vomiting, abdominal pain. : No dysuria or hematuria. MUSCULOSKELETAL: As above. HEMATOLOGY: As above. ENDOCRINE: Negative DERMATOLOGY: As above. PSYCHIATRIC: Negative. NEUROLOGIC: Negative. PHYSICAL EXAMINATION VITAL SIGNS: Temperature 99.1, blood pressure 199/75, O2 saturation 97% room air. GENERAL: She is alert and oriented x3 in no acute distress. HEENT: Atraumatic, normocephalic. Pupils equal, round and reactive to light. Extraocular muscles intact. No scleral icterus. Oropharynx dry mucosa. No lesion or thrush. No mucositis. NECK: No thyromegaly. No palpable masses. LYMPHATICS: No palpable cervical, clavicular, axillary or inguinal lymph node CARDIOVASCULAR: Regular S1-S2, no murmur. LUNGS: Clear to auscultation without wheezing or rhonchi. ABDOMEN: Soft, nontender. Could not palpate liver or spleen. EXTREMITIES: The right lower extremity wound had black eschar, no active bleeding noted, is erythematous, A little tender and slight edema. LABORATORY DATA WBC 6.4, hemoglobin 7.7, platelet count of 547. Creatinine of 1.2. ASSESSMENT 1. Acute on chronic anemia. She has a history of chronic anemia thought due to iron deficiency as well as possible low grade myelodysplasia. 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 There was no stainable iron noted at that time. She was thought to have iron deficiency and was given iron supplement. She was also found to zinc deficiency and started zinc supplement. In September 2016 bone marrow biopsy showed normocellular bone marrow with trilineage Hematopoiesis. There was stainable iron noted at that time. Chromosome study showed normal female karyotype. She had received transfusion in 2014 and again August 2016. Since then, her hemoglobin has improved. In December, her hemoglobin was stable at around 10.3. She presented today and her hemoglobin was 7.7 which I think is due to the bleeding from her wound. She stated she has significant bleeding after her dog bite and, since then, she has been oozing around the wound. I am going to check her iron study. I recommend transfusing as she is likely going to have more blood loss with upcoming surgery. 2. Thrombocytosis likely a reactive process. Her platelet count has been normal in the past. 3. Right lower extremity dog bite wound is now infected. She was started on antibiotic. She is going to see the surgeon for debridement. 4. Diabetes on insulin. 5. Coronary artery disease. She had no symptoms at this time. 6. Chronic obstructive pulmonary disease, stable. PLAN: 1. Check an iron study. 2. Recommend transfusion as she may have more blood loss with upcoming surgery. 3. She is awaiting a surgical evaluation. Thank you, Dr. Prabhakar, for asking me to see this patient. MD BRENDEN Salmeron/ /5:27 PM /6:17 PM STEVAN
[2017-02-25 19:00] VITALS: BP 218/86; PULSE 65; RESP 12; TEMP 98.3; O2SAT 100
[2017-02-25 20:00] VITALS: BP 198/89; PULSE 63; RESP 18; TEMP 97.8; O2SAT 98
[2017-02-25 20:34] LABS: FERRITIN 148 NG/ML (8-252); TRANSFERRIN IRON PROFILE 181 MG/DL (200-360)
[2017-02-25] MEDS: SODIUM CHLORIDE 0.9% FLUSH 10 ML FLUSH IV FLUSH SCH (21:00)
[2017-02-25] MEDS: METOPROLOL TARTRATE 50 MG TAB PO SCH (21:08)
[2017-02-25] MEDS: INSULIN ASPART SUPPLEMENTAL SCALE SQ SCH (21:15)
[2017-02-25] MEDS: MORPHINE SULFATE 4 MG/ML INJ IV PUSH PRN (23:43)
[2017-02-26] VITALS (8 sets, daily range): BP systolic 135–201; BP diastolic 59–81; PULSE 60–66; RESP 12–21; TEMP 96.2–98.5; O2SAT 97–100
[2017-02-26] MEDS ORDERED: LACTATED RINGER'S 1000 ML INJ 1,000 ML IV SCH (05:45)
[2017-02-26] MEDS ORDERED: POVIDONE IODINE 5% (ANTISEPSIS KIT) 4 APPLICATIONS EACH NARE PRN (05:45)
[2017-02-26] MEDS ORDERED: CHLORHEXIDINE GLUCONATE 2 % 1 PACK (2 CLOTHS) TOPICAL PRN (05:45)
[2017-02-26] MEDS: INSULIN ASPART SUPPLEMENTAL SCALE SQ SCH ×4 (06:31→20:12)
[2017-02-26] MEDS: MORPHINE SULFATE 4 MG/ML INJ IV PUSH PRN ×4 (06:36→23:46)
--- NOTE | 2017-02-26 07:14 | MB ---
cc: BRADY DELAROSA MD, ANDREW DATE OF CONSULTATION: 02/25/2017 REASON FOR CONSULTATION Right lower extremity wound with skin necrosis. HISTORY OF PRESENT ILLNESS The patient is a 56-year-old female who presented to the [facility] today with worsening right lower extremity wound. Per the patient she was bitten by her dog accidentally when two of her dogs were fighting and sustained multiple lacerations to her right lower extremity. The patient has a medical history of chronic anticoagulation due to coronary artery disease and stent placement with aspirin. The patient did undergo wound care and attempt at closure of this with Steri-Strips; however, developed likely infection and a large area of skin necrosis likely due to hemorrhage from being on Effient as well as contusion to the tissue. The patient states that she normally heals well, although she is a diabetic per her history. The patient denies any fevers, chills, night sweats or any other complaints. The patient denies any neurologic changes in her leg. Denies any history of peripheral vascular disease or previous leg surgery. REVIEW OF SYSTEMS A 12-point review of systems obtained from the patient is negative except for the pertinent positives mentioned above in the history of present illness. PAST MEDICAL HISTORY 1. Chronic anemia. 2. Arthritis. 3. Asthma. 4. COPD. 5. Coronary artery disease. 6. Diabetes. 7. Hypertension. 8. Neuropathy PAST SURGICAL HISTORY 1. Back surgery. 2. Coronary artery stenting x3, the last in October 2016. 3. Appendectomy. 4. . 5. Hysterectomy. 6. Left wrist ganglion cyst. ALLERGIES DARVON. MEDICATIONS 1. Aspirin. 2. Imdur. 3. Prinivil. 4. Pravachol. 5. Aldactone. 6. Metoprolol. 7. Iron. 8. Effient. SOCIAL HISTORY Does not currently use tobacco, drink alcohol or use illicit drugs. FAMILY HISTORY Noncontributory. PHYSICAL EXAMINATION VITAL SIGNS: Temperature 99.1, blood pressure 199/75, O2 saturation 97% on room air. GENERAL: The patient is an elderly female in no acute distress. She does not appear acute or chronically ill. HEENT: Head is normocephalic, atraumatic. Pupils are round and reactive to light. Sclerae anicteric. Mucous membranes are moist. NECK: Supple. No JVD. LUNGS: Clear to auscultation bilaterally. Nonlabored breathing pattern. HEART: Regular rate and rhythm. ABDOMEN: Soft, nondistended. No organomegaly. No ascites. EXTREMITIES: Trace edema bilateral lower extremities, right worse than left. Warm and perfused right lower extremity. Neuro intact. There is a large irregular area of skin necrosis with intermingled with a laceration and some mild amount of purulent drainage. There is a faint odor of bacterial overgrowth but with no obvious necrotizing infection. There is a very minimal area of cellulitis or inflammation of any healthy tissue. NEUROLOGIC: Patient is awake, alert, orient x4. Moves all extremities equally. Cranial nerves II through XII are grossly intact. LABORATORY CBC: White blood cell count 6.4, hemoglobin 7.7. IMAGING Ultrasound of the leg shows negative for DVT. ASSESSMENT AND PLAN The patient is a 56-year-old female status post traumatic laceration and crush injury to her right leg treated nonoperatively in the emergency department. However, the patient has developed secondary skin necrosis with possible colonization although no evidence of any acute cellulitis. There is no sepsis or limb-threatening infection and no signs of necrotizing fasciitis. I do recommend the patient undergo washout of her wound and debridement of any nonviable tissue. I think this will require minimal sharp debridement, therefore the patient can remain on her Effient due to heart stents. Once this wound is adequately debrided of any nonviable tissue, I will likely place a VAC dressing and would recommend consultation for plastic surgery to evaluate the wound and consider further management including possible skin graft placement, likely early next week. We will make the patient n.p.o. after midnight and I will consent her for wound debridement and VAC placement for Wednesday morning. We will follow this patient. Thank you very much for this consultation. MD RAFA Talbert/ANASTASIA /8:58 PM /6:59 AM
[2017-02-26] MEDS: SPIRONOLACTONE 25 MG TAB PO SCH (08:40)
[2017-02-26] MEDS: METOPROLOL TARTRATE 50 MG TAB PO SCH ×2 (08:40→20:00)
[2017-02-26] MEDS: PRASUGREL 10 MG TAB PO SCH (08:41)
[2017-02-26] MEDS: LISINOPRIL 20 MG TAB PO SCH (08:41)
[2017-02-26] MEDS: ASPIRIN 81 MG CHEW TAB CHEW SCH (08:42)
[2017-02-26] MEDS: FERROUS SULFATE 325 MG (65 MG ELEMENTAL IRON) TAB PO SCH ×3 (08:42→17:33)
[2017-02-26] MEDS: SODIUM CHLORIDE 0.9% FLUSH 10 ML FLUSH IV FLUSH SCH ×2 (08:42→20:07)
[2017-02-26] MEDS: PRAVASTATIN SOD 40 MG TAB PO SCH (08:42)
--- NOTE | 2017-02-26 09:18 | HHI.HP ---
HPI Service [facility] Primary Care Physician NICHOLAS Claire Admission Diagnosis necrotic wound RLE Diagnoses: Chief Complaint: Right Lower extremity Necrotic Wound Travel History International Travel<30 Days: No Contact w/Intl Traveler <30 Da: No Traveled to Known Affected Are: No History of Present Illness This is a pleasant 66 y/o Female who came to to ER with Right lower extremity necrotic lesion, she was initially seen on 02/09/17 in ER with an extensive dog bite, given Unasyn 3 grams IV, wound was treated and discharged on Augmentin, she completed the antibiotic, re evaluated in ER on 02/17/17, then came two days ago for stitches removal the wound did not look infected at that time, but came again with pain and swelling on her lower extremity. The patient now presents with an angry-appearing right lower extremity along with some pain and swelling. as we know she has Anemia, OA, Asthma, DM I, CAD, Hiatal hernia, Hypertension, Neuropathy. Seen in her bedroom in the presence of nurse Miss Naty katz, awaiting for I and D and Vacuum later today Past Family Social History Past Medical History Anemia OA Asthma DM I CAD Hiatal hernia Hypertension Neuropathy, Past Surgical History Laminectomy PCI and stent placed x 2 Abdominal Surgery Appendectomy C Section KATELYN Tonsillectomy adenoidectomy Left wrist ganglion cyst. Reported Medications Reported Meds & Active Scripts Active Levemir Inj (Insulin Detemir) 1,000 unit/ 10 ML Vial 16 Units SQ BID Reported Zinc (Zinc Gluconate) 50 Mg Tab 50 Mg PO DAILY B-12 (Cyanocobalamin) 2,500 Mcg Subl 2,500 Mcg PO DAILY Nitroglycerin SL (Nitroglycerin) 0.4 Mg Subl 0.4 Mg SL DIRECTED PRN ONE TABLET UNDER THE TONGUE NEEDED FOR CHEST PAIN, MAY REPEAT EVERY FIVE MINUTES FOR A TOTAL OF 3 DOSES OR CALL 911 IF NO RELIEF Isosorbide Mononitrate ER (Isosorbide Mononitrate) 30 Mg Abbey 30 Mg PO DAILY Spironolactone 25 Mg Tab 25 Mg PO DAILY Pravastatin 40 Mg Tab 40 Mg PO DAILY Ranitidine (Ranitidine HCl) 150 Mg Cap 150 Mg PO DAILY PRN Jocelyn-Colace (Sennosides-Docusate Sodium) 8.6-50 Mg Tab 2 Tab PO DAILY Novolog Inj (Insulin Aspart) 1,000 Unit/10 Ml Vial Unknown Dose SQ ACHS Sliding Scale as directed. Metoprolol Tartrate 50 Mg Tab 50 Mg PO BID Lisinopril 20 Mg Tab 20 Mg PO DAILY Folic Acid 800 Mcg Tab 1,600 Mcg PO DAILY Ferrous Sulfate 325 Mg Tab 325 Mg PO TID Effient (Prasugrel) 10 Mg Tab 10 Mg PO DAILY Aspirin 81 Mg Chew 81 Mg CHEW DAILY Allergies: Coded Allergies: Darvon (Verified Allergy, Mild, RASH, 02/25/17) Active Ordered Medications Current Medications Medications (Trade) Dose Ordered Sig/Marie Route Start Time Stop Time Status Last Admin (NS Flush) 2 ml UNSCH PRN IV FLUSH 02/25/17 15:30 (NS Flush) 2 ml BID IV FLUSH 02/25/17 21:00 02/25/17 21:00 (Tylenol) 650 mg Q4H PRN PO 02/25/17 15:30 (Zofran Inj) 4 mg Q6H PRN IVP 02/25/17 15:30 (Milk Of Magnesia Liq) 30 ml Q12H PRN PO 02/25/17 15:30 (Narcan Inj) 0.4 mg UNSCH PRN IV 02/25/17 15:30 (Aspirin Chew) 81 mg DAILY CHEW 02/26/17 09:00 (Ferrous Sulfate) 325 mg TID PO 02/25/17 18:00 02/26/17 08:42 (Imdur) 30 mg DAILY PO 02/26/17 09:00 (Prinivil) 20 mg DAILY PO 02/26/17 09:00 02/26/17 08:41 (Lopressor) 50 mg BID PO 02/25/17 21:00 02/26/17 08:40 (Effient) 10 mg DAILY PO 02/26/17 09:00 (Pravachol) 40 mg DAILY PO 02/26/17 09:00 02/26/17 08:42 (Aldactone) 25 mg DAILY PO 02/26/17 09:00 02/26/17 08:40 (Pepcid) 20 mg DAILY PRN PO 02/25/17 15:45 (D50w (Vial) Inj) 25 ml UNSCH PRN IV PUSH 02/25/17 15:30 Glucagon 1 mg 1 mg UNSCH PRN OTHER 02/25/17 15:30 (NS 250 ml Inj) 250 ml @ 15 mls/hr ONCE ONCE IV 02/25/17 17:45 02/26/17 10:24 02/25/17 20:00 Morphine Sulfate 2 mg 2 mg Q3H PRN IV PUSH 02/25/17 23:30 02/26/17 06:36 (Lr 1000 ml Inj) 1,000 ml @ 0 mls/hr Q24H IV 02/26/17 05:45 Family History Father at 40 years of age Colon Cancer Mother with MS Social History Lives with her . Quit smoking in 2001 Physical Exam Vital Signs Vital Signs Date Time Temp Pulse Resp B/P Pulse Ox O2 Delivery O2 Flow Rate FiO2 02/26/17 08:00 98.5 66 12 185/74 97 02/26/17 04:05 96.5 63 18 156/63 98 02/26/17 03:45 96.2 60 18 165/71 98 02/26/17 00:00 97.6 61 18 142/59 99 02/25/17 20:00 97.8 63 18 198/89 98 02/25/17 19:00 98.3 65 12 218/86 100 02/25/17 17:55 62 18 205/91 02/25/17 16:52 72 14 200/72 100 02/25/17 16:13 69 16 199/75 97 Room Air 02/25/17 13:28 99.1 85 16 136/67 98 Physical Exam GENERAL: No acute distress. SKIN: Warm and dry. Right lower extremity with necrotic wound. HEAD: Atraumatic. Normocephalic. EYES: Pupils equal and round. ENT: No nasal bleeding or discharge. Mucous membranes pink and moist. NECK: Trachea midline. CARDIOVASCULAR: Regular rate and rhythm. RESPIRATORY: No accessory muscle use. GASTROINTESTINAL: Abdomen soft, non-tender, nondistended. MUSCULOSKELETAL: No obvious deformities. No edema. NEUROLOGICAL: Awake and alert. No obvious cranial nerve deficits. Motor grossly within normal limits. Normal speech. PSYCHIATRIC: Appropriate mood and affect; insight and judgment normal. Laboratory Laboratory Tests Test 02/25/17 02/26/17 14:26 00:40 White Blood Count 6.4 Red Blood Count 2.63 Hemoglobin 7.7 Hematocrit 23.9 Mean Corpuscular Volume 90.7 Mean Corpuscular Hemoglobin 29.1 Mean Corpuscular Hemoglobin 32.1 Concent Red Cell Distribution Width 14.9 Platelet Count 547 Mean Platelet Volume 7.3 Neutrophils (%) (Auto) 72.3 Lymphocytes (%) (Auto) 19.2 Monocytes (%) (Auto) 6.7 Eosinophils (%) (Auto) 1.2 Basophils (%) (Auto) 0.6 Neutrophils # (Auto) 4.6 Lymphocytes # (Auto) 1.2 Monocytes # (Auto) 0.4 Eosinophils # (Auto) 0.1 Basophils # (Auto) 0.0 CBC Comment DIFF FINAL Differential Comment Sodium Level 140 Potassium Level 4.9 Chloride Level 107 Carbon Dioxide Level 24.8 Anion Gap 8 Blood Urea Nitrogen 22 Creatinine 1.20 Estimat Glomerular Filtration 45 Rate Random Glucose 232 Calcium Level 9.3 Iron Level 28 Total Iron Binding Capacity 253 Percent Iron Saturation 11.0 Ferritin 148 Vitamin B12 Level GREATER THAN 2000 Folate GREATER THAN 20.0 Blood Type B NEGATIVE Antibody Screen NEGATIVE Crossmatch Leukocyte-Reduced Red Blood Cells Blood Bank Comment Date/Time Procedure Status Source Growth 02/25/17 14:26 Gram Stain - Final Resulted Wound Leg 02/25/17 14:26 Wound Culture Resulted Wound Leg Pending 02/25/17 14:26 Aerobic Blood Culture Received Blood Peripheral Pending 02/25/17 14:26 Anaerobic Blood Culture Received Blood Peripheral Pending Result Diagram: 02/25/17 1426 02/25/17 1426 Imaging Last Impressions Lower Extremity Ultrasound 02/25/17 1356 Signed Impressions: Service Date/Time: January 14:49 - CONCLUSION: No evidence of right lower extremity DVT. Dwain Estevez MD Assessment and Plan Problem List: (1) COPD (chronic obstructive pulmonary disease) ICD Code: J44.9 Status: Chronic (2) HTN (hypertension) ICD Code: I10 Status: Chronic Assessment and Plan 1. Right lower extremity wound status post general surgery consult recommended for I and D today and Vacuum placement continue Unasyn but will remove antibiotics if not needed after I and D. 2. Status post dog Bite on the RLE 3. Acute on chronic anemia seen by dental billing specialist Doctor Tamika, suspected low grade Myelodysplasia, status post bone marrow biopsy on April 2016 showed mildly hypocellular bone marrow with trilineage Hypoplasia, given Iron supplement, found Zinc deficiency and given Zinc supplement, normal new bone Marrow biopsy in September 2016, has thrombocytosis likely reactive process, okay to transfuse as needed 4. COPD on Bronchodilator, Mucolytic and incentive spirometry 5. DM II continue sliding scale 6. CAD status post PCI x 2 and three stents placed. 7. Peripheral Neuropathy stable. continue home medicines. DVT prophylaxis with SCDs and early activity. will have procedure later today. Code Status Full Code Discussed Condition With Patient and nurse in the room. Physician Certification 2 Midnight Certification Type: Admission for Inpatient Services Order for Inpatient Services The services are ordered in accordance with Medicare regulations or non- Medicare payer requirements, as applicable. In the case of services not specified as inpatient-only, they are appropriately provided as inpatient services in accordance with the 2-midnight benchmark. Estimated LOS (days): 3 days is the estimated time the patient will need to remain in the hospital, assuming treatment plan goals are met and no additional complications. Post-Hospital Plan: Not yet determined Maldonado Alves MD Feb 26, 2017 09:18
[2017-02-26] MEDS: ISOSORBIDE MONONITRATE 30 MG TAB PO SCH (10:09)
[2017-02-26] MEDS: ONDANSETRON HCL 4 MG/2 ML VIAL IVP PRN (10:10)
--- NOTE | 2017-02-26 10:21 | PD.ONC.PN ---
Subjective Subjective Remarks Afebrile overnight. Patient resting comfortably. She is waiting to go to the OR for debridement. Objective Data Date Time Temp Pulse Resp B/P Pulse Ox O2 Delivery O2 Flow Rate FiO2 02/26/17 08:00 98.5 66 12 185/74 97 02/26/17 04:05 96.5 63 18 156/63 98 02/26/17 03:45 96.2 60 18 165/71 98 02/26/17 00:00 97.6 61 18 142/59 99 02/25/17 20:00 97.8 63 18 198/89 98 02/25/17 19:00 98.3 65 12 218/86 100 02/25/17 17:55 62 18 205/91 02/25/17 16:52 72 14 200/72 100 02/25/17 16:13 69 16 199/75 97 Room Air 02/25/17 13:28 99.1 85 16 136/67 98 Result Diagram: 02/25/17 1426 02/25/17 1426 Laboratory Results Laboratory Tests Test 02/25/17 02/26/17 14:26 00:40 White Blood Count 6.4 TH/MM3 Red Blood Count 2.63 MIL/MM3 Hemoglobin 7.7 GM/DL Hematocrit 23.9 % Mean Corpuscular Volume 90.7 FL Mean Corpuscular Hemoglobin 29.1 PG Mean Corpuscular Hemoglobin 32.1 % Concent Red Cell Distribution Width 14.9 % Platelet Count 547 TH/MM3 Mean Platelet Volume 7.3 FL Neutrophils (%) (Auto) 72.3 % Lymphocytes (%) (Auto) 19.2 % Monocytes (%) (Auto) 6.7 % Eosinophils (%) (Auto) 1.2 % Basophils (%) (Auto) 0.6 % Neutrophils # (Auto) 4.6 TH/MM3 Lymphocytes # (Auto) 1.2 TH/MM3 Monocytes # (Auto) 0.4 TH/MM3 Eosinophils # (Auto) 0.1 TH/MM3 Basophils # (Auto) 0.0 TH/MM3 CBC Comment DIFF FINAL Differential Comment Sodium Level 140 MEQ/L Potassium Level 4.9 MEQ/L Chloride Level 107 MEQ/L Carbon Dioxide Level 24.8 MEQ/L Anion Gap 8 MEQ/L Blood Urea Nitrogen 22 MG/DL Creatinine 1.20 MG/DL Estimat Glomerular Filtration 45 ML/MIN Rate Random Glucose 232 MG/DL Calcium Level 9.3 MG/DL Iron Level 28 MCG/DL Total Iron Binding Capacity 253 MCG/DL Percent Iron Saturation 11.0 % Ferritin 148 NG/ML Vitamin B12 Level GREATER THAN 2000 PG/ML Folate GREATER THAN 20.0 NG/ML Blood Type B NEGATIVE Antibody Screen NEGATIVE Crossmatch Leukocyte-Reduced Red Blood Cells Blood Bank Comment Culture Results Microbiology Date/Time Procedure Status Source Growth 02/25/17 14:26 Aerobic Blood Culture Received Blood Peripheral Pending 02/25/17 14:26 Anaerobic Blood Culture Received Blood Peripheral Pending 02/25/17 14:26 Aerobic Blood Culture Received Blood Peripheral Pending 02/25/17 14:26 Anaerobic Blood Culture Received Blood Peripheral Pending 02/25/17 14:26 Gram Stain - Final Resulted Wound Leg 02/25/17 14:26 Wound Culture Resulted Wound Leg Pending Imaging Studies Last 24 hours Impressions Lower Extremity Ultrasound 02/25/17 1356 Signed Impressions: Service Date/Time: January 14:49 - CONCLUSION: No evidence of right lower extremity DVT. Dwain Estevez MD Administered Medications Medications (Trade) Dose Ordered Sig/Marie Route PRN Reason Start Time Stop Time Status Last Admin Dose Admin Sodium Chloride (NS Flush) 2 ml BID IV FLUSH 02/25/17 21:00 02/25/17 21:00 Ferrous Sulfate (Ferrous Sulfate) 325 mg TID PO 02/25/17 18:00 02/26/17 08:42 Lisinopril (Prinivil) 20 mg DAILY PO 02/26/17 09:00 02/26/17 08:41 Metoprolol Tartrate (Lopressor) 50 mg BID PO 02/25/17 21:00 02/26/17 08:40 Pravastatin Sodium (Pravachol) 40 mg DAILY PO 02/26/17 09:00 02/26/17 08:42 Spironolactone 25 mg 25 mg DAILY PO 02/26/17 09:00 02/26/17 08:40 Sodium Chloride (NS 250 ml Inj) 250 ml @ 15 mls/hr ONCE ONCE IV 02/25/17 17:45 02/26/17 10:24 02/25/17 20:00 Morphine Sulfate (Morphine Inj) 2 mg Q3H PRN IV PUSH pain >5 02/25/17 23:30 02/26/17 06:36 Objective Remarks GENERAL: Elderly female, sitting up in bed in nad. SKIN: Warm and dry. HEAD: Normocephalic. EYES: No injection or drainage. NECK: Supple, trachea midline. CARDIOVASCULAR: Regular rate and rhythm RESPIRATORY: Breath sounds equal bilaterally. No accessory muscle use. GASTROINTESTINAL: Abdomen soft, non-tender, nondistended. EXTREMITIES: No cyanosis. necrotic wound, RLE MUSCULOSKELETAL: Adequate muscle tone. NEUROLOGICAL: No obvious focal deficit. Awake, alert, and oriented x3. Assessment/Plan Problem List: (1) Anemia Status: Acute Plan: --transfuse as needed -- Acute on chronic anemia. acute component due to dog bite related blood loss. --due to iron deficiency as well as possible low grade myelodysplasia. 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 --bone marrow biopsy September 2016 --showed normocellular bone marrow with trilineage Hematopoiesis. +stainable iron noted at that time. (2) Dog bite of multiple sites of right lower extremity Status: Acute Plan: --on antibiotic --going to OR for debridement (3) Thrombocytosis Status: Acute Plan: --likely reactive Assessment 66y/o with h/o chronic anemia and low-grade MDS admitted with dog bite. h/o Arthritis. Asthma, COPD, Coronary artery disease, Diabetes, Hypertension, Hiatal hernia Peripheral neuropathy Zinc deficiency. Plan 1. check CBC 2. transfuse as needed to keep hgb>8 3. may need to give IV iron after debridement Attending Statement The exam, history, and the medical decision-making described in the above note were completed with the assistance of the mid-level provider. I reviewed and agree with the findings presented. I attest that I had a [id number] encounter with the patient on the same day, and personally performed and documented my assessment and findings in the medical record. Problem Qualifiers (1) Anemia: Qualified Code: D64.9 - Anemia, unspecified type (2) Dog bite of multiple sites of right lower extremity: Qualified Code: S81.851D - Dog bite of multiple sites of right lower extremity , subsequent encounter Yelitza Tipton Feb 26, 2017 10:21 Mati Schmidt MD Mar 01, 2017 08:16
[2017-02-26 11:17] LABS: AUTOMATED NEUTROPHIL # 3.8 TH/MM3 (1.8-7.7); BASOPHIL % 0.2 % (0.0-2.0); EOSINOPHIL # 0.1 TH/MM3 (0-0.4); EOSINOPHIL % 1.7 % (0.0-4.0); HEMATOCRIT 24.4 % (35.0-46.0); HEMO FLAGS DIFF FINAL; LYMPH % 23.7 % (9.0-44.0); LYMPHOCYTE # 1.4 TH/MM3 (1.0-4.8); MEAN CELL VOLUME 87.6 FL (80.0-100.0); MEAN CORPUSCULAR HEMOGLOBIN 29.5 PG (27.0-34.0); MEAN CORPUSCULAR HGB CONC 33.7 % (32.0-36.0); MONO % 8.9 % (0.0-8.0); NEUT % 65.5 % (16.0-70.0); PLATELET COUNT 440 TH/MM3 (150-450); RED BLOOD COUNT 2.79 MIL/MM3 (4.00-5.30); RED CELL DISTRIBUTION WIDTH 14.8 % (11.6-17.2); WHITE BLOOD COUNT 5.8 TH/MM3 (4.0-11.0)
[2017-02-26 11:34] LABS: BICARBONATE 24.9 MEQ/L (21.0-32.0); POTASSIUM 4.5 MEQ/L (3.5-5.1)
[2017-02-26] MEDS: AMPICILLIN-SULBACTAM INJ 3 GM VIAL IM SCH ×2 (12:00→17:26)
[2017-02-26] MEDS ORDERED: ePHEDrine/NS 25 MG/5 ML SYR IV ONE (12:00)
[2017-02-26] MEDS ORDERED: LACTATED RINGER'S 1000 ML INJ 1,000 ML IV ONE (12:00)
[2017-02-26] MEDS ORDERED: ONDANSETRON HCL 4 MG/2 ML VIAL IV PUSH ONE (12:00)
[2017-02-26] MEDS ORDERED: PROPOFOL 200 MG/20 ML AMP IV ONE (12:00)
[2017-02-26] MEDS ORDERED: MIDAZOLAM HCL 2 MG/2 ML VIAL ONE (13:32)
[2017-02-26] MEDS ORDERED: FAMOTIDINE 20 MG/2 ML VIAL ONE (13:32)
[2017-02-26] MEDS ORDERED: ACETAMINOPHEN 1000 MG/100 ML VIAL IV ONE (13:32)
[2017-02-26] MEDS ORDERED: ceFAZolin 2 GM PREMIX 50 ML ONE (14:01)
[2017-02-26] MEDS ORDERED: DO NOT ADM ANY ANTICOAGULANT DRUGS PRN (14:59)
--- NOTE | 2017-02-26 15:22 | HHI.PR ---
Immediate Post Op Note Procedure Date: Feb 26, 2017 Pre Op Diagnosis: (1) Infected dog bite Post Op Diagnosis: (1) Infected dog bite Surgeon: Ajit Delacruz [employer] Insurance(s): none Procedure: debridement skin and SQ 12 X 10cm for necrotic tissue and VAC placement Findings: necrotic skin and SQ Complications: none Estimated blood loss: 20ml Anesthesia: General IVF Patient to: PACU Patient Condition: Good Ajit Delacruz MD Feb 26, 2017 15:22
[2017-02-26] MEDS ORDERED: *morphine SULFATE 8 MG/ML PERIprocedure ONLY ONE (15:30)
[2017-02-26] MEDS ORDERED: *ENALAPRILAT 1.25 MG/ML VIAL PERIprocedural Use ONLY ONE ×2 (16:03→16:23)
[2017-02-26] MEDS: cloNIDine HCL 0.1 MG TAB PO PRN (18:17)
[2017-02-26] MEDS: guaiFENesin E.R. 600 MG TAB PO SCH (19:59)
[2017-02-26] MEDS: RESP: ALBUTEROL 2.5 MG/IPRATROPIUM 0.5 MG NEB (SCH) NEB (21:16)
[2017-02-27] VITALS (8 sets, daily range): BP systolic 135–200; BP diastolic 64–85; PULSE 52–69; RESP 14–21; TEMP 96–99.7; O2SAT 95–100
[2017-02-27] MEDS: RESP: ALBUTEROL 2.5 MG/IPRATROPIUM 0.5 MG NEB (SCH) NEB ×4 (03:36→20:20)
[2017-02-27] MEDS: MORPHINE SULFATE 4 MG/ML INJ IV PUSH PRN ×4 (04:13→21:34)
[2017-02-27] MEDS: cloNIDine HCL 0.1 MG TAB PO PRN ×2 (04:59→21:34)
[2017-02-27] MEDS: ISOSORBIDE MONONITRATE 30 MG TAB PO SCH (08:44)
[2017-02-27] MEDS: SPIRONOLACTONE 25 MG TAB PO SCH (08:44)
[2017-02-27] MEDS: FERROUS SULFATE 325 MG (65 MG ELEMENTAL IRON) TAB PO SCH ×3 (08:44→17:00)
[2017-02-27] MEDS: METOPROLOL TARTRATE 50 MG TAB PO SCH ×2 (08:44→21:35)
[2017-02-27] MEDS: guaiFENesin E.R. 600 MG TAB PO SCH ×2 (08:44→21:35)
[2017-02-27] MEDS: ASPIRIN 81 MG CHEW TAB CHEW SCH (08:44)
[2017-02-27] MEDS: PRASUGREL 10 MG TAB PO SCH (08:44)
[2017-02-27] MEDS: LISINOPRIL 20 MG TAB PO SCH (08:44)
[2017-02-27] MEDS: SODIUM CHLORIDE 0.9% FLUSH 10 ML FLUSH IV FLUSH SCH ×2 (08:45→21:00)
[2017-02-27] MEDS: PRAVASTATIN SOD 40 MG TAB PO SCH (08:46)
[2017-02-27] MEDS: INSULIN ASPART SUPPLEMENTAL SCALE SQ SCH ×3 (11:00→21:00)
[2017-02-27] MEDS ORDERED: INSULIN DETEMIR 100 UNITS/ML VIAL SQ ONE (14:15)
--- NOTE | 2017-02-27 14:35 | HHI.PR ---
Subjective Remarks This is a pleasant 66 y/o Female who came to to ER with Right lower extremity necrotic lesion, she was initially seen on 02/09/17 in ER with an extensive dog bite, given Unasyn 3 grams IV, wound was treated and discharged on Augmentin, she completed the antibiotic, re evaluated in ER on 02/17/17, then came two days ago for stitches removal the wound did not look infected at that time, but came again with pain and swelling on her lower extremity. The patient now presents with an angry-appearing right lower extremity along with some pain and swelling. as we know she has Anemia, OA, Asthma, DM I, CAD, Hiatal hernia, Hypertension, Neuropathy. Seen in her bedroom in the presence of her and her Grandsons. stable status post I and D and Vacuum in place worsening her blood sugar level, will re start her Levemir she uses 16 units at home will continue sliding scale and start Levemir at 10 units BID. Objective Vital Signs Date Time Temp Pulse Resp B/P Pulse Ox O2 Delivery O2 Flow Rate FiO2 02/27/17 12:00 98.3 67 16 135/64 96 02/27/17 08:00 98.1 63 17 161/70 96 02/27/17 06:28 64 148/66 02/27/17 04:00 96.0 69 20 188/79 95 02/27/17 00:00 96.0 52 21 151/67 100 02/26/17 20:00 97.4 62 21 201/81 100 02/26/17 20:00 135/64 02/26/17 19:31 98 Nasal Cannula 2.00 02/26/17 17:00 96.6 63 17 200/80 98 02/26/17 16:58 98.1 60 20 161/62 99 Nasal Cannula 2 02/26/17 16:45 60 20 161/62 99 Nasal Cannula 2 02/26/17 16:30 60 20 184/77 99 Nasal Cannula 2 02/26/17 16:15 68 20 186/75 99 Nasal Cannula 2 02/26/17 16:00 60 20 184/75 99 Nasal Cannula 2 02/26/17 15:45 58 20 156/60 97 Nasal Cannula 2 02/26/17 15:30 59 20 142/58 97 Nasal Cannula 2 02/26/17 15:15 58 20 146/58 99 Nasal Cannula 2 02/26/17 15:01 98.1 60 20 163/70 98 Nasal Cannula 2 I/O 02/26/17 02/26/17 02/26/17 02/27/17 02/27/17 02/27/17 07:00 15:00 23:00 07:00 15:00 23:00 Intake Total 200 ml 0 ml 1215 ml 120 ml Output Total 100 ml Balance 200 ml 0 ml 1215 ml 120 ml -100 ml Intake Oral 0 ml 0 ml 240 ml 120 ml IV Total 575 ml 0 ml Packed Cells 200 ml Other 400 ml Output Drainage Total 100 ml # Voids 1 2 1 3 # Bowel Movements 0 0 0 Result Diagram: 02/26/17 1042 02/26/17 1042 Imaging Last Impressions Lower Extremity Ultrasound 02/25/17 1356 Signed Impressions: Service Date/Time: January 14:49 - CONCLUSION: No evidence of right lower extremity DVT. Dwain Estevez MD Procedures Status post I and D and Vacuum placement Other Results Laboratory Tests Test 02/25/17 02/26/17 02/26/17 14:26 00:40 10:42 Iron Level 28 MCG/DL Total Iron Binding Capacity 253 MCG/DL Percent Iron Saturation 11.0 % Ferritin 148 NG/ML Vitamin B12 Level GREATER THAN 2000 PG/ML Folate GREATER THAN 20.0 NG/ML Blood Type B NEGATIVE Antibody Screen NEGATIVE Crossmatch Leukocyte-Reduced Red Blood Cells Blood Bank Comment White Blood Count 5.8 TH/MM3 Red Blood Count 2.79 MIL/MM3 Hemoglobin 8.2 GM/DL Hematocrit 24.4 % Mean Corpuscular Volume 87.6 FL Mean Corpuscular Hemoglobin 29.5 PG Mean Corpuscular Hemoglobin 33.7 % Concent Red Cell Distribution Width 14.8 % Platelet Count 440 TH/MM3 Mean Platelet Volume 7.4 FL Neutrophils (%) (Auto) 65.5 % Lymphocytes (%) (Auto) 23.7 % Monocytes (%) (Auto) 8.9 % Eosinophils (%) (Auto) 1.7 % Basophils (%) (Auto) 0.2 % Neutrophils # (Auto) 3.8 TH/MM3 Lymphocytes # (Auto) 1.4 TH/MM3 Monocytes # (Auto) 0.5 TH/MM3 Eosinophils # (Auto) 0.1 TH/MM3 Basophils # (Auto) 0.0 TH/MM3 CBC Comment DIFF FINAL Differential Comment Sodium Level 141 MEQ/L Potassium Level 4.5 MEQ/L Chloride Level 110 MEQ/L Carbon Dioxide Level 24.9 MEQ/L Anion Gap 6 MEQ/L Blood Urea Nitrogen 19 MG/DL Creatinine 1.03 MG/DL Estimat Glomerular Filtration 54 ML/MIN Rate Random Glucose 140 MG/DL Calcium Level 9.5 MG/DL Objective Remarks GENERAL: No acute distress. SKIN: Warm and dry. Right lower extremity with vacuum in place. on anterior foreleg. HEAD: Atraumatic. Normocephalic. EYES: Pupils equal and round. ENT: No nasal bleeding or discharge. Mucous membranes pink and moist. NECK: Trachea midline. CARDIOVASCULAR: Regular rate and rhythm. RESPIRATORY: No accessory muscle use. GASTROINTESTINAL: Abdomen soft, non-tender, nondistended. MUSCULOSKELETAL: Right leg with Vacuum in place. NEUROLOGICAL: Awake and alert. No obvious cranial nerve deficits. Motor grossly within normal limits. Normal speech. PSYCHIATRIC: Appropriate mood and affect; insight and judgment normal. 1. Right lower extremity wound status post general surgery consult recommended for I and D today and Vacuum placement continue Unasyn but will remove antibiotics if not needed after I and D. 2. Status post dog Bite on the RLE 3. Acute on chronic anemia seen by senior telecommunications specialist Doctor Tamika, suspected low grade Myelodysplasia, status post bone marrow biopsy on April 2016 showed mildly hypocellular bone marrow with trilineage Hypoplasia, given Iron supplement, found Zinc deficiency and given Zinc supplement, normal new bone Marrow biopsy in September 2016, has thrombocytosis likely reactive process, okay to transfuse as needed 4. COPD on Bronchodilator, Mucolytic and incentive spirometry 5. DM II continue sliding scale 6. CAD status post PCI x 2 and three stents placed. 7. Peripheral Neuropathy stable. continue home medicines. DVT prophylaxis with SCDs and early activity. will have procedure later today. Code Status Full Code Discussed Condition With Patient and nurse in the room. 8 Hypertension uncontrolled continued her home medicines and added Clonidine if systolic blood pressure in 160 mm Hg or over. Medications and IVs Current Medications Medications (Trade) Dose Ordered Sig/Marie Route Start Time Stop Time Status Last Admin (NS Flush) 2 ml UNSCH PRN IV FLUSH 02/25/17 15:30 (NS Flush) 2 ml BID IV FLUSH 02/25/17 21:00 02/27/17 08:45 (Tylenol) 650 mg Q4H PRN PO 02/25/17 15:30 (Zofran Inj) 4 mg Q6H PRN IVP 02/25/17 15:30 02/26/17 10:10 (Milk Of Magnesia Liq) 30 ml Q12H PRN PO 02/25/17 15:30 (Narcan Inj) 0.4 mg UNSCH PRN IV 02/25/17 15:30 (Aspirin Chew) 81 mg DAILY CHEW 02/26/17 09:00 02/27/17 08:44 (Ferrous Sulfate) 325 mg TID PO 02/25/17 18:00 02/27/17 12:59 (Imdur) 30 mg DAILY PO 02/26/17 09:00 02/27/17 08:44 (Prinivil) 20 mg DAILY PO 02/26/17 09:00 02/27/17 08:44 (Lopressor) 50 mg BID PO 02/25/17 21:00 02/27/17 08:44 (Effient) 10 mg DAILY PO 02/26/17 09:00 02/27/17 08:44 (Pravachol) 40 mg DAILY PO 02/26/17 09:00 02/27/17 08:46 (Aldactone) 25 mg DAILY PO 02/26/17 09:00 02/27/17 08:44 (Pepcid) 20 mg DAILY PRN PO 02/25/17 15:45 (D50w (Vial) Inj) 25 ml UNSCH PRN IV PUSH 02/25/17 15:30 (Glucagon Inj) 1 mg UNSCH PRN OTHER 02/25/17 15:30 Morphine Sulfate 2 mg 2 mg Q3H PRN IV PUSH 02/25/17 23:30 02/27/17 09:58 (Lr 1000 ml Inj) 1,000 ml @ 0 mls/hr Q24H IV 02/26/17 05:45 (Mucinex Er) 600 mg BID PO 02/26/17 21:00 02/27/17 08:44 Miscellaneous Information ALL NURSING DEPARTME... UNSCH PRN .XX 02/26/17 14:59 02/27/17 14:58 (Catapres) 0.1 mg Q6H PRN PO 02/26/17 18:00 02/27/17 04:59 A/P Assessment and Plan 1. Right lower extremity wound status post general surgery status post I and D and Vacuum placement on anterior right foreleg, asked for Plastic Surgery consult, following specialist recommendations. 2. Status post dog Bite on the RLE 3. Acute on chronic anemia seen by senior telecommunications specialist Doctor Tamika, suspected low grade Myelodysplasia, status post bone marrow biopsy on April 2016 showed mildly hypocellular bone marrow with trilineage Hypoplasia, given Iron supplement, found Zinc deficiency and given Zinc supplement, normal new bone Marrow biopsy in September 2016, has thrombocytosis likely reactive process, okay to transfuse as needed follow H and H tomorrow. 4. COPD on Bronchodilator, Mucolytic and incentive spirometry 5. DM II Uncontrolled, her recent hemoglobin A1C on December 03 was 8.1 re started on Levemir 10 units BID and continue sliding scale and following. 6. CAD status post PCI x 2 and three stents placed. 7. Peripheral Neuropathy stable. continue home medicines. 8 Hypertension better control continue present care and follow. DVT prophylaxis Heparin. Code Status Full Code Discussed Condition With Patient, her and two Grandsons in the room, also with nurse Miss Treviño all questions answered to the best of my abilities. Discharge Planning when cleared by General surgery and Plastic Surgery Maldonado Alves MD Feb 27, 2017 14:35
[2017-02-27] MEDS: HEPARIN SODIUM - SQ 10,000 UNITS/ML VIAL SQ SCH (21:35)
[2017-02-27] MEDS: INSULIN DETEMIR 100 UNITS/ML VIAL SQ SCH (21:35)
[2017-02-28] VITALS: BP 204/83; PULSE 70; RESP 18; TEMP 100; O2SAT 96
[2017-02-28] MEDS ORDERED: hydrALAZINE HCL 50 MG TAB PO ONE (00:30)
[2017-02-28] MEDS: MORPHINE SULFATE 4 MG/ML INJ IV PUSH PRN ×4 (00:42→20:42)
[2017-02-28 04:00] VITALS: BP 174/74; PULSE 70; RESP 18; TEMP 98.6; O2SAT 96
[2017-02-28] MEDS: RESP: ALBUTEROL 2.5 MG/IPRATROPIUM 0.5 MG NEB (SCH) NEB ×2 (04:00→07:55)
[2017-02-28] MEDS: cloNIDine HCL 0.1 MG TAB PO PRN ×2 (04:29→16:39)
[2017-02-28] MEDS: HEPARIN SODIUM - SQ 10,000 UNITS/ML VIAL SQ SCH ×3 (04:29→22:21)
[2017-02-28 05:18] LABS: HEMATOCRIT 26.8 % (35.0-46.0)
[2017-02-28] MEDS: INSULIN ASPART SUPPLEMENTAL SCALE SQ SCH ×4 (05:30→22:20)
[2017-02-28 08:00] VITALS: BP 180/77; PULSE 68; RESP 17; TEMP 97.3; O2SAT 95
[2017-02-28] MEDS: PRASUGREL 10 MG TAB PO SCH (08:43)
[2017-02-28] MEDS: guaiFENesin E.R. 600 MG TAB PO SCH ×2 (08:43→20:41)
[2017-02-28] MEDS: SPIRONOLACTONE 25 MG TAB PO SCH (08:43)
[2017-02-28] MEDS: LISINOPRIL 20 MG TAB PO SCH (08:43)
[2017-02-28] MEDS: PRAVASTATIN SOD 40 MG TAB PO SCH (08:44)
[2017-02-28] MEDS: ASPIRIN 81 MG CHEW TAB CHEW SCH (08:44)
[2017-02-28] MEDS: ISOSORBIDE MONONITRATE 30 MG TAB PO SCH (08:44)
[2017-02-28] MEDS: INSULIN DETEMIR 100 UNITS/ML VIAL SQ SCH ×2 (08:44→22:20)
[2017-02-28] MEDS: FERROUS SULFATE 325 MG (65 MG ELEMENTAL IRON) TAB PO SCH ×3 (08:44→16:39)
[2017-02-28] MEDS: METOPROLOL TARTRATE 50 MG TAB PO SCH ×2 (08:48→20:41)
[2017-02-28] MEDS: MAGNESIUM HYDROXIDE SUSP 30 ML CUP PO PRN (08:53)
[2017-02-28] MEDS: SODIUM CHLORIDE 0.9% FLUSH 10 ML FLUSH IV FLUSH SCH ×2 (09:00→20:40)
--- NOTE | 2017-02-28 09:24 | HHI.PR ---
Subjective Remarks This is a pleasant 66 y/o Female who came to to ER with Right lower extremity necrotic lesion, she was initially seen on 02/09/17 in ER with an extensive dog bite, given Unasyn 3 grams IV, wound was treated and discharged on Augmentin, she completed the antibiotic, re evaluated in ER on 02/17/17, then came two days ago for stitches removal the wound did not look infected at that time, but came again with pain and swelling on her lower extremity. The patient now presents with an angry-appearing right lower extremity along with some pain and swelling. as we know she has Anemia, OA, Asthma, DM I, CAD, Hiatal hernia, Hypertension, Neuropathy. Seen in her bedroom in the presence of her and her Grandsons. stable status post I and D and Vacuum in place worsening her blood sugar level, will re start her Levemir she uses 16 units at home will continue sliding scale and start Levemir at 10 units BID. 02/28 Stable no new issues, awaiting final recommendations. from destination specialist consulted, continue Vacuum management, status post I and D, continue with uncontrolled blood pressure. Objective Vital Signs Date Time Temp Pulse Resp B/P Pulse Ox O2 Delivery O2 Flow Rate FiO2 02/28/17 08:00 97.3 68 17 180/77 95 02/28/17 04:00 98.6 70 18 174/74 96 02/28/17 00:00 100.0 70 18 204/83 96 02/27/17 20:00 99.7 67 18 197/85 96 02/27/17 16:00 99.6 69 14 200/82 95 188/70 02/27/17 15:52 97 02/27/17 12:00 98.3 67 16 135/64 96 I/O 02/27/17 02/27/17 02/27/17 02/28/17 02/28/17 02/28/17 07:00 15:00 23:00 07:00 15:00 23:00 Intake Total 120 ml 240 ml 240 ml Output Total 100 ml 900 ml Balance 120 ml -100 ml 240 ml -660 ml Intake Oral 120 ml 240 ml 240 ml IV Total 0 ml Output Urine Total 900 ml Drainage Total 100 ml # Voids 3 1 # Bowel Movements 0 0 0 Result Diagram: 02/28/17 0424 02/26/17 1042 Imaging Last Impressions Lower Extremity Ultrasound 02/25/17 3366 Signed Impressions: Service Date/Time: January 14:49 - CONCLUSION: No evidence of right lower extremity DVT. Dwain Estevez MD Procedures Status post I and D and Vacuum placement Other Results Laboratory Tests Test 02/25/17 02/26/17 02/26/17 02/28/17 14:26 00:40 10:42 04:24 Iron Level 28 MCG/DL Total Iron Binding Capacity 253 MCG/DL Percent Iron Saturation 11.0 % Ferritin 148 NG/ML Vitamin B12 Level GREATER THAN 2000 PG/ML Folate GREATER THAN 20.0 NG/ML Blood Type B NEGATIVE Antibody Screen NEGATIVE Crossmatch Leukocyte-Reduced Red Blood Cells Blood Bank Comment White Blood Count 5.8 TH/MM3 Red Blood Count 2.79 MIL/MM3 Mean Corpuscular Volume 87.6 FL Mean Corpuscular Hemoglobin 29.5 PG Mean Corpuscular Hemoglobin 33.7 % Concent Red Cell Distribution Width 14.8 % Platelet Count 440 TH/MM3 Mean Platelet Volume 7.4 FL Neutrophils (%) (Auto) 65.5 % Lymphocytes (%) (Auto) 23.7 % Monocytes (%) (Auto) 8.9 % Eosinophils (%) (Auto) 1.7 % Basophils (%) (Auto) 0.2 % Neutrophils # (Auto) 3.8 TH/MM3 Lymphocytes # (Auto) 1.4 TH/MM3 Monocytes # (Auto) 0.5 TH/MM3 Eosinophils # (Auto) 0.1 TH/MM3 Basophils # (Auto) 0.0 TH/MM3 CBC Comment DIFF FINAL Differential Comment Sodium Level 141 MEQ/L Potassium Level 4.5 MEQ/L Chloride Level 110 MEQ/L Carbon Dioxide Level 24.9 MEQ/L Anion Gap 6 MEQ/L Blood Urea Nitrogen 19 MG/DL Creatinine 1.03 MG/DL Estimat Glomerular Filtration 54 ML/MIN Rate Random Glucose 140 MG/DL Calcium Level 9.5 MG/DL Hemoglobin 8.9 GM/DL Hematocrit 26.8 % Objective Remarks GENERAL: No acute distress. SKIN: Warm and dry. Right lower extremity with vacuum in place. on anterior foreleg. HEAD: Atraumatic. Normocephalic. EYES: Pupils equal and round. ENT: No nasal bleeding or discharge. Mucous membranes pink and moist. NECK: Trachea midline. CARDIOVASCULAR: Regular rate and rhythm. RESPIRATORY: No accessory muscle use. GASTROINTESTINAL: Abdomen soft, non-tender, nondistended. MUSCULOSKELETAL: Right leg with Vacuum in place. NEUROLOGICAL: Awake and alert. No obvious cranial nerve deficits. Motor grossly within normal limits. Normal speech. PSYCHIATRIC: Appropriate mood and affect; insight and judgment normal. 1. Right lower extremity wound status post general surgery consult recommended for I and D today and Vacuum placement continue Unasyn but will remove antibiotics if not needed after I and D. 2. Status post dog Bite on the RLE 3. Acute on chronic anemia seen by installation specialist Doctor Tamika, suspected low grade Myelodysplasia, status post bone marrow biopsy on April 2016 showed mildly hypocellular bone marrow with trilineage Hypoplasia, given Iron supplement, found Zinc deficiency and given Zinc supplement, normal new bone Marrow biopsy in September 2016, has thrombocytosis likely reactive process, okay to transfuse as needed 4. COPD on Bronchodilator, Mucolytic and incentive spirometry 5. DM II continue sliding scale 6. CAD status post PCI x 2 and three stents placed. 7. Peripheral Neuropathy stable. continue home medicines. DVT prophylaxis with SCDs and early activity. will have procedure later today. Code Status Full Code Discussed Condition With Patient and nurse in the room. 8 Hypertension uncontrolled continued her home medicines and added Clonidine if systolic blood pressure in 160 mm Hg or over. Medications and IVs Current Medications Medications (Trade) Dose Ordered Sig/Marie Route Start Time Stop Time Status Last Admin (NS Flush) 2 ml UNSCH PRN IV FLUSH 02/25/17 15:30 (NS Flush) 2 ml BID IV FLUSH 02/25/17 21:00 02/27/17 21:00 (Tylenol) 650 mg Q4H PRN PO 02/25/17 15:30 (Zofran Inj) 4 mg Q6H PRN IVP 02/25/17 15:30 02/26/17 10:10 (Milk Of Magnesia Liq) 30 ml Q12H PRN PO 02/25/17 15:30 02/28/17 08:53 (Narcan Inj) 0.4 mg UNSCH PRN IV 02/25/17 15:30 (Aspirin Chew) 81 mg DAILY CHEW 02/26/17 09:00 02/28/17 08:44 (Ferrous Sulfate) 325 mg TID PO 02/25/17 18:00 02/28/17 08:44 (Imdur) 30 mg DAILY PO 02/26/17 09:00 02/28/17 08:44 (Prinivil) 20 mg DAILY PO 02/26/17 09:00 02/28/17 08:43 (Lopressor) 50 mg BID PO 02/25/17 21:00 02/28/17 08:48 (Effient) 10 mg DAILY PO 02/26/17 09:00 02/28/17 08:43 (Pravachol) 40 mg DAILY PO 02/26/17 09:00 02/28/17 08:44 (Aldactone) 25 mg DAILY PO 02/26/17 09:00 02/28/17 08:43 (Pepcid) 20 mg DAILY PRN PO 02/25/17 15:45 (D50w (Vial) Inj) 25 ml UNSCH PRN IV PUSH 02/25/17 15:30 (Glucagon Inj) 1 mg UNSCH PRN OTHER 02/25/17 15:30 (Morphine Inj) 2 mg Q3H PRN IV PUSH 02/25/17 23:30 02/28/17 04:30 (Mucinex Er) 600 mg BID PO 02/26/17 21:00 02/28/17 08:43 (Catapres) 0.1 mg Q6H PRN PO 02/26/17 18:00 02/28/17 04:29 (Levemir Inj) 10 units Q12HR SQ 02/27/17 21:00 02/28/17 08:44 (Heparin Inj) 5,000 units Q8HR SQ 02/27/17 22:00 02/28/17 04:29 A/P Assessment and Plan 1. Right lower extremity wound status post general surgery status post I and D and Vacuum placement on anterior right foreleg, asked for Plastic Surgery consult, following specialist recommendations. 2. Status post dog Bite on the RLE 3. Acute on chronic anemia seen by installation specialist Doctor Tamika, suspected low grade Myelodysplasia, status post bone marrow biopsy on April 2016 showed mildly hypocellular bone marrow with trilineage Hypoplasia, given Iron supplement, found Zinc deficiency and given Zinc supplement, normal new bone Marrow biopsy in September 2016, has thrombocytosis likely reactive process, okay to transfuse as needed Hemoglobin 8.9 4. COPD on Bronchodilator, Mucolytic and incentive spirometry, no exacerbation 5. DM II Uncontrolled, her recent hemoglobin A1C on December 03 was 8.1 re started on Levemir 10 units BID continue present care. 6. CAD status post PCI x 2 and three stents placed. 7. Peripheral Neuropathy stable. continue home medicines. 8 Hypertension Uncontrolled continue Clonidine as needed. DVT prophylaxis Heparin. Code Status Full Code Discussed Condition With Patient, her and two Grandsons in the room, also with nurse Kamila all questions answered to the best of my abilities. Discharge Planning when cleared by General surgery and Plastic Surgery Maldonado Alves MD Feb 28, 2017 09:24
[2017-02-28] MEDS: PIPERACIL-TAZO 3.375 GM PREMIX 50 ML IV SCH ×3 (11:49→22:19)
[2017-02-28 12:00] VITALS: BP 134/64; PULSE 63; RESP 17; TEMP 97.4; O2SAT 97
[2017-02-28 16:00] VITALS: BP 173/74; PULSE 56; RESP 17; TEMP 98.1; O2SAT 95
[2017-02-28 20:00] VITALS: BP 184/76; PULSE 58; RESP 18; TEMP 97.1; O2SAT 98
[2017-03-01] VITALS (7 sets, daily range): BP systolic 154–190; BP diastolic 52–80; PULSE 53–67; RESP 17–18; TEMP 96.9–99.1; O2SAT 95–97
[2017-03-01] MEDS: MORPHINE SULFATE 4 MG/ML INJ IV PUSH PRN ×4 (01:48→22:31)
[2017-03-01] MEDS: cloNIDine HCL 0.1 MG TAB PO PRN (01:54)
[2017-03-01] MEDS: PIPERACIL-TAZO 3.375 GM PREMIX 50 ML IV SCH ×4 (05:15→22:01)
[2017-03-01] MEDS: HEPARIN SODIUM - SQ 10,000 UNITS/ML VIAL SQ SCH ×3 (05:16→21:56)
[2017-03-01] MEDS: INSULIN ASPART SUPPLEMENTAL SCALE SQ SCH ×4 (06:24→21:54)
[2017-03-01] MEDS: INSULIN DETEMIR 100 UNITS/ML VIAL SQ SCH (08:59)
[2017-03-01] MEDS: FERROUS SULFATE 325 MG (65 MG ELEMENTAL IRON) TAB PO SCH ×2 (09:00→13:30)
[2017-03-01] MEDS: PRASUGREL 10 MG TAB PO SCH (09:00)
[2017-03-01] MEDS: guaiFENesin E.R. 600 MG TAB PO SCH ×2 (09:00→21:55)
[2017-03-01] MEDS: ISOSORBIDE MONONITRATE 30 MG TAB PO SCH (09:01)
[2017-03-01] MEDS: METOPROLOL TARTRATE 50 MG TAB PO SCH ×2 (09:01→21:55)
[2017-03-01] MEDS: LISINOPRIL 20 MG TAB PO SCH (09:01)
[2017-03-01] MEDS: SPIRONOLACTONE 25 MG TAB PO SCH (09:01)
[2017-03-01] MEDS: PRAVASTATIN SOD 40 MG TAB PO SCH (09:02)
[2017-03-01] MEDS: ASPIRIN 81 MG CHEW TAB CHEW SCH (09:02)
[2017-03-01] MEDS: SODIUM CHLORIDE 0.9% FLUSH 10 ML FLUSH IV FLUSH SCH ×2 (09:02→21:55)
[2017-03-01 10:52] LABS: REVIEW FLAG FINAL
--- NOTE | 2017-03-01 14:07 | PD.ONC.PN ---
Subjective Subjective Remarks Afebrile overnight. Patient says she feels much better since the debridement. She is pleased with how her wound has been healing. They changed the wound vac dressing today and there was a small amount of bleeding. Objective Data Date Time Temp Pulse Resp B/P Pulse Ox O2 Delivery O2 Flow Rate FiO2 03/01/17 12:00 96.9 53 17 171/74 95 03/01/17 08:00 97.5 57 18 172/74 97 03/01/17 04:00 98.8 56 18 176/79 96 03/01/17 01:00 170/68 03/01/17 00:00 99.1 58 18 190/80 96 02/28/17 20:00 97.1 58 18 184/76 98 02/28/17 16:00 98.1 56 17 173/74 95 03/01/17 03/01/17 03/01/17 07:00 15:00 23:00 Intake Total 498 ml 49 ml Output Total 800 ml Balance -302 ml 49 ml Result Diagram: 03/01/17 1027 02/26/17 1042 Laboratory Results Laboratory Tests Test 03/01/17 10:27 Hemoglobin 9.0 GM/DL Hematocrit 27.0 % Culture Results Microbiology Date/Time Procedure Status Source Growth 02/26/17 14:30 Gram Stain - Final Complete Wound Leg 02/26/17 14:30 Wound Culture - Final Complete Escherichia Coli Pseudomonas Aeruginosa 02/26/17 14:30 Fungal Smear - Final Resulted Wound Leg NO FUNGAL ELEMENTS SEEN. 02/26/17 14:30 Fungal Culture Resulted Wound Leg Pending 02/26/17 14:30 Acid Fast Stain - Final Resulted Wound Leg NO ACID FAST BACILLI SEEN 02/26/17 14:30 Mycobacterial Culture Resulted Wound Leg Pending Administered Medications Medications (Trade) Dose Ordered Sig/Marie Route PRN Reason Start Time Stop Time Status Last Admin Dose Admin Sodium Chloride (NS Flush) 2 ml BID IV FLUSH 02/25/17 21:00 03/01/17 09:02 Ondansetron HCl (Zofran Inj) 4 mg Q6H PRN IVP NAUSEA OR VOMITING 02/25/17 15:30 02/26/17 10:10 Magnesium Hydroxide (Milk Of Magnesia Liq) 30 ml Q12H PRN PO CONSTIPATION 02/25/17 15:30 02/28/17 08:53 Aspirin (Aspirin Chew) 81 mg DAILY CHEW 02/26/17 09:00 03/01/17 09:02 Ferrous Sulfate (Ferrous Sulfate) 325 mg TID PO 02/25/17 18:00 03/01/17 13:30 Isosorbide Mononitrate (Imdur) 30 mg DAILY PO 02/26/17 09:00 03/01/17 09:01 Lisinopril (Prinivil) 20 mg DAILY PO 02/26/17 09:00 03/01/17 09:01 Metoprolol Tartrate (Lopressor) 50 mg BID PO 02/25/17 21:00 03/01/17 09:01 Prasugrel (Effient) 10 mg DAILY PO 02/26/17 09:00 03/01/17 09:00 Pravastatin Sodium (Pravachol) 40 mg DAILY PO 02/26/17 09:00 03/01/17 09:02 Spironolactone (Aldactone) 25 mg DAILY PO 02/26/17 09:00 03/01/17 09:01 Morphine Sulfate (Morphine Inj) 2 mg Q3H PRN IV PUSH pain >5 02/25/17 23:30 03/01/17 12:14 Guaifenesin (Mucinex Er) 600 mg BID PO 02/26/17 21:00 03/01/17 09:00 Clonidine (Catapres) 0.1 mg Q6H PRN PO SBP>160, DBP>90 02/26/17 18:00 03/01/17 01:54 Insulin Detemir (Levemir Inj) 10 units Q12HR SQ 02/27/17 21:00 02/28/17 22:20 Heparin Sodium (Porcine) 5000 units 5,000 units Q8HR SQ 02/27/17 22:00 03/01/17 13:30 Piperacillin Sod/ Tazobactam Sod (Zosyn 3.375 Gm Premix) 50 ml @ 100 mls/hr Q6H IV 02/28/17 11:00 03/01/17 13:29 Objective Remarks GENERAL: Middle aged female, sitting up in bed in [facility] SKIN: Warm and dry. RLE with wound vac and clean bandages in place. HEAD: Normocephalic. EYES: No injection or drainage. NECK: Supple, trachea midline. CARDIOVASCULAR: Regular rate and rhythm RESPIRATORY: Breath sounds equal bilaterally. No accessory muscle use. GASTROINTESTINAL: Abdomen soft, non-tender, nondistended. EXTREMITIES: No cyanosis NEUROLOGICAL: awake and alert, normal speech. moving all extremities. Assessment/Plan Problem List: (1) Anemia, iron deficiency Status: Chronic Plan: --transfuse as needed, currently on oral ferrous sulfate -- Acute on chronic anemia. acute component due to dog bite related blood loss. --due to iron deficiency as well as possible low grade myelodysplasia. 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 --bone marrow biopsy September 2016 --showed normocellular bone marrow with trilineage Hematopoiesis. +stainable iron noted at that time. (2) Dog bite of multiple sites of right lower extremity Status: Acute Plan: --on antibiotic --s/p debridement in OR --wound vac being managed by surgery/primary Assessment 66y/o with h/o chronic anemia and low-grade MDS admitted with dog bite. h/o Arthritis. Asthma, COPD, Coronary artery disease, Diabetes, Hypertension, Hiatal hernia Peripheral neuropathy Zinc deficiency. Plan 1. monitor CBC 2. continue oral iron. Attending Statement The exam, history, and the medical decision-making described in the above note were completed with the assistance of the mid-level provider. I reviewed and agree with the findings presented. I attest that I had a [id number] encounter with the patient on the same day, and personally performed and documented my assessment and findings in the medical record. Problem Qualifiers (1) Dog bite of multiple sites of right lower extremity: Qualified Code: S81.851D - Dog bite of multiple sites of right lower extremity , subsequent encounter Yelitza Tipton Mar 01, 2017 14:07 Mati Schmidt MD Mar 02, 2017 23:08
--- NOTE | 2017-03-01 14:09 | PD.CONS ---
History of Present Illness Service Plastic surgery Consult Requested By Reason for Consult Wound of right lower leg, dog bite. Primary Care Physician No Primary Care Physician Diagnoses: History of Present Illness This is a 66 year old female who was admitted for treatment of a necrotic wound of the right lower extremity. The patient was bitted by her dog on 02/09/17 and was treated in the emergency room. She returned on 02/24 for suture removal. The wound appeared to be healing well at that time. She returned to the ER on with pain and swelling in the right lower extremity. Dr. Delacruz debrided the wound and has placed a wound vac. He is requesting evaluation of the patient with regard to a possible skin graft or other wound coverage. 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 Past Medical History Anemia, DM, CAD, HTN, OA, Asthma, hiatal hernia, neuropathy Past Surgical History Laminectomy, PCI with stent, abdominal surgery, appendectomy, , KATELYN, adenoidectomy, left wrist ganglion Active Ordered Medications Current Medications Medications (Trade) Dose Ordered Sig/Marie Route Start Time Stop Time Status Last Admin (NS Flush) 2 ml UNSCH PRN IV FLUSH 02/25/17 15:30 (NS Flush) 2 ml BID IV FLUSH 02/25/17 21:00 03/01/17 09:02 (Tylenol) 650 mg Q4H PRN PO 02/25/17 15:30 (Zofran Inj) 4 mg Q6H PRN IVP 02/25/17 15:30 02/26/17 10:10 (Milk Of Magnesia Liq) 30 ml Q12H PRN PO 02/25/17 15:30 02/28/17 08:53 (Narcan Inj) 0.4 mg UNSCH PRN IV 02/25/17 15:30 (Aspirin Chew) 81 mg DAILY CHEW 02/26/17 09:00 03/01/17 09:02 (Ferrous Sulfate) 325 mg TID PO 02/25/17 18:00 03/01/17 13:30 (Imdur) 30 mg DAILY PO 02/26/17 09:00 03/01/17 09:01 (Prinivil) 20 mg DAILY PO 02/26/17 09:00 03/01/17 09:01 (Lopressor) 50 mg BID PO 02/25/17 21:00 03/01/17 09:01 (Effient) 10 mg DAILY PO 02/26/17 09:00 03/01/17 09:00 (Pravachol) 40 mg DAILY PO 02/26/17 09:00 03/01/17 09:02 (Aldactone) 25 mg DAILY PO 02/26/17 09:00 03/01/17 09:01 (Pepcid) 20 mg DAILY PRN PO 02/25/17 15:45 (D50w (Vial) Inj) 25 ml UNSCH PRN IV PUSH 02/25/17 15:30 (Glucagon Inj) 1 mg UNSCH PRN OTHER 02/25/17 15:30 (Morphine Inj) 2 mg Q3H PRN IV PUSH 02/25/17 23:30 03/01/17 12:14 (Mucinex Er) 600 mg BID PO 02/26/17 21:00 03/01/17 09:00 (Catapres) 0.1 mg Q6H PRN PO 02/26/17 18:00 03/01/17 01:54 (Levemir Inj) 10 units Q12HR SQ 02/27/17 21:00 02/28/17 22:20 Heparin Sodium (Porcine) 5000 units 5,000 units Q8HR SQ 02/27/17 22:00 03/01/17 13:30 (Zosyn 3.375 Gm Premix) 50 ml @ 100 mls/hr Q6H IV 02/28/17 11:00 03/01/17 13:29 Family History Father age 40, colon caner Mother with MS Social History Former smoker, quit 2001 Physical Exam Vital Signs Vital Signs Date Time Temp Pulse Resp B/P Pulse Ox O2 Delivery O2 Flow Rate FiO2 03/01/17 12:00 96.9 53 17 171/74 95 03/01/17 08:00 97.5 57 18 172/74 97 03/01/17 04:00 98.8 56 18 176/79 96 03/01/17 01:00 170/68 03/01/17 00:00 99.1 58 18 190/80 96 02/28/17 20:00 97.1 58 18 184/76 98 02/28/17 16:00 98.1 56 17 173/74 95 Physical Exam GENERAL: This is a well-nourished, well-developed patient, in no apparent distress. HEAD: Atraumatic. Normocephalic. EYES: Pupils equal round and reactive. Extraocular motions intact. No scleral icterus. No injection or drainage. ENT: Nose without bleeding, purulent drainage. Uvula midline. Airway patent. NECK: Trachea midline. CARDIOVASCULAR: Regular rate and rhythm without murmurs, gallops, or rubs. RESPIRATORY: Clear to auscultation. Breath sounds equal bilaterally. MUSCULOSKELETAL: Wound vac present to the left lower extremity. Wound measurements done by WONAILA, see notes. Wound bed with red granulation tissue as well as some pepe tissue, possibly from cauterization. Drainage is serosanguineous, no purulence or odor. There is no evidence of cellulitis to periwound skin. NEUROLOGICAL: Awake and alert. Cranial nerves II through XII intact. Motor and sensory grossly within normal limits. Normal speech. Laboratory Laboratory Tests Test 03/01/17 10:27 Hemoglobin 9.0 Hematocrit 27.0 Date/Time Procedure Status Source Growth 02/26/17 14:30 Gram Stain - Final Complete Wound Leg 02/26/17 14:30 Wound Culture - Final Complete Escherichia Coli Pseudomonas Aeruginosa 02/26/17 14:30 Fungal Smear - Final Resulted Wound Leg NO FUNGAL ELEMENTS SEEN. 02/26/17 14:30 Fungal Culture Resulted Wound Leg Pending 02/26/17 14:30 Acid Fast Stain - Final Resulted Wound Leg NO ACID FAST BACILLI SEEN 02/26/17 14:30 Mycobacterial Culture Resulted Wound Leg Pending 02/25/17 14:26 Aerobic Blood Culture - Preliminary Resulted Blood Peripheral NO GROWTH IN 4 DAYS 02/25/17 14:26 Anaerobic Blood Culture - Preliminary Resulted Blood Peripheral NO GROWTH IN 4 DAYS Result Diagram: 03/01/17 1027 02/26/17 1042 Assessment and Plan Problem List: (1) Dog bite of multiple sites of right lower extremity Status: Acute Plan: Continue with wound vac for the time being. Will continue to monitor progress and further discuss whether the patient will be a candidate for skin graft or other wound coverage. This does not have to be done while the patient is inpatient. She may be discharged and followed outpatient. Discussed with RN , WOCN, and patient. The exam, history, and the medical decision-making described in the above note were completed with the assistance of the mid-level provider. I reviewed and agree with the findings presented. I attest that I had a [id number] encounter with the patient on the same day, and personally performed and documented my assessment and findings in the medical record. Maeve Moore M.D. Assessment and Plan WOCN and RN present for exam. Continue with wound vac as ordered. Problem Qualifiers (1) Dog bite of multiple sites of right lower extremity: Qualified Code: S81.851D - Dog bite of multiple sites of right lower extremity , subsequent encounter Lucero Stevens Mar 01, 2017 14:09
--- NOTE | 2017-03-01 15:32 | HHI.PR ---
Subjective Remarks This is a pleasant 66 y/o Female who came to to ER with Right lower extremity necrotic lesion, she was initially seen on 02/09/17 in ER with an extensive dog bite, given Unasyn 3 grams IV, wound was treated and discharged on Augmentin, she completed the antibiotic, re evaluated in ER on 02/17/17, then came two days ago for stitches removal the wound did not look infected at that time, but came again with pain and swelling on her lower extremity. The patient now presents with an angry-appearing right lower extremity along with some pain and swelling. as we know she has Anemia, OA, Asthma, DM I, CAD, Hiatal hernia, Hypertension, Neuropathy. Seen in her bedroom in the presence of her and her Grandsons. stable status post I and D and Vacuum in place worsening her blood sugar level, will re start her Levemir she uses 16 units at home will continue sliding scale and start Levemir at 10 units BID. 02/28 Stable no new issues, awaiting final recommendations. from aircraft electrical systems specialist consulted, continue Vacuum management, status post I and D, continue with uncontrolled blood pressure. 03/01 Seen in her bedroom in the presence of nurse she had Hypoglycemia her Levemir was stopped and following. awaiting final recommendations by aircraft electrical systems specialist. Objective Vital Signs Date Time Temp Pulse Resp B/P Pulse Ox O2 Delivery O2 Flow Rate FiO2 03/01/17 12:00 96.9 53 17 171/74 95 03/01/17 08:00 97.5 57 18 172/74 97 03/01/17 04:00 98.8 56 18 176/79 96 03/01/17 01:00 170/68 03/01/17 00:00 99.1 58 18 190/80 96 02/28/17 20:00 97.1 58 18 184/76 98 02/28/17 16:00 98.1 56 17 173/74 95 I/O 02/28/17 02/28/17 02/28/17 03/01/17 03/01/17 03/01/17 07:00 15:00 23:00 07:00 15:00 23:00 Intake Total 240 ml 175 ml 320 ml 498 ml 529 ml Output Total 900 ml 650 ml 600 ml 800 ml 825 ml Balance -660 ml -475 ml -280 ml -302 ml -296 ml Intake Oral 240 ml 120 ml 320 ml 320 ml 480 ml IV Total 55 ml 178 ml 49 ml Output Urine Total 900 ml 600 ml 600 ml 800 ml 800 ml Drainage Total 50 ml 25 ml # Bowel Movements 0 0 0 0 0 Result Diagram: 03/01/17 1027 02/26/17 1042 Imaging Last Impressions Lower Extremity Ultrasound 02/25/17 1356 Signed Impressions: Service Date/Time: January 14:49 - CONCLUSION: No evidence of right lower extremity DVT. Dwain Estevez MD Procedures Status post I and D and Vacuum placement Other Results Laboratory Tests Test 02/25/17 02/26/17 02/26/17 03/01/17 14:26 00:40 10:42 10:27 Iron Level 28 MCG/DL Total Iron Binding Capacity 253 MCG/DL Percent Iron Saturation 11.0 % Ferritin 148 NG/ML Vitamin B12 Level GREATER THAN 2000 PG/ML Folate GREATER THAN 20.0 NG/ML Blood Type B NEGATIVE Antibody Screen NEGATIVE Crossmatch Leukocyte-Reduced Red Blood Cells Blood Bank Comment White Blood Count 5.8 TH/MM3 Red Blood Count 2.79 MIL/MM3 Mean Corpuscular Volume 87.6 FL Mean Corpuscular Hemoglobin 29.5 PG Mean Corpuscular Hemoglobin 33.7 % Concent Red Cell Distribution Width 14.8 % Platelet Count 440 TH/MM3 Mean Platelet Volume 7.4 FL Neutrophils (%) (Auto) 65.5 % Lymphocytes (%) (Auto) 23.7 % Monocytes (%) (Auto) 8.9 % Eosinophils (%) (Auto) 1.7 % Basophils (%) (Auto) 0.2 % Neutrophils # (Auto) 3.8 TH/MM3 Lymphocytes # (Auto) 1.4 TH/MM3 Monocytes # (Auto) 0.5 TH/MM3 Eosinophils # (Auto) 0.1 TH/MM3 Basophils # (Auto) 0.0 TH/MM3 CBC Comment DIFF FINAL Differential Comment Sodium Level 141 MEQ/L Potassium Level 4.5 MEQ/L Chloride Level 110 MEQ/L Carbon Dioxide Level 24.9 MEQ/L Anion Gap 6 MEQ/L Blood Urea Nitrogen 19 MG/DL Creatinine 1.03 MG/DL Estimat Glomerular Filtration 54 ML/MIN Rate Random Glucose 140 MG/DL Calcium Level 9.5 MG/DL Hemoglobin 9.0 GM/DL Hematocrit 27.0 % Objective Remarks GENERAL: No acute distress. SKIN: Warm and dry. Right lower extremity with vacuum in place. on anterior foreleg. HEAD: Atraumatic. Normocephalic. EYES: Pupils equal and round. ENT: No nasal bleeding or discharge. Mucous membranes pink and moist. NECK: Trachea midline. CARDIOVASCULAR: Regular rate and rhythm. RESPIRATORY: No accessory muscle use. GASTROINTESTINAL: Abdomen soft, non-tender, nondistended. MUSCULOSKELETAL: Right leg with Vacuum in place. NEUROLOGICAL: Awake and alert. No obvious cranial nerve deficits. Motor grossly within normal limits. Normal speech. PSYCHIATRIC: Appropriate mood and affect; insight and judgment normal. 1. Right lower extremity wound status post general surgery consult recommended for I and D today and Vacuum placement continue Unasyn but will remove antibiotics if not needed after I and D. 2. Status post dog Bite on the RLE 3. Acute on chronic anemia seen by elementary reading specialist Doctor Tamika, suspected low grade Myelodysplasia, status post bone marrow biopsy on April 2016 showed mildly hypocellular bone marrow with trilineage Hypoplasia, given Iron supplement, found Zinc deficiency and given Zinc supplement, normal new bone Marrow biopsy in September 2016, has thrombocytosis likely reactive process, okay to transfuse as needed 4. COPD on Bronchodilator, Mucolytic and incentive spirometry 5. DM II continue sliding scale 6. CAD status post PCI x 2 and three stents placed. 7. Peripheral Neuropathy stable. continue home medicines. DVT prophylaxis with SCDs and early activity. will have procedure later today. Code Status Full Code Discussed Condition With Patient and nurse in the room. 8 Hypertension uncontrolled continued her home medicines and added Clonidine if systolic blood pressure in 160 mm Hg or over. Medications and IVs Current Medications Medications (Trade) Dose Ordered Sig/Marie Route Start Time Stop Time Status Last Admin (NS Flush) 2 ml UNSCH PRN IV FLUSH 02/25/17 15:30 (NS Flush) 2 ml BID IV FLUSH 02/25/17 21:00 03/01/17 09:02 (Tylenol) 650 mg Q4H PRN PO 02/25/17 15:30 (Zofran Inj) 4 mg Q6H PRN IVP 02/25/17 15:30 02/26/17 10:10 (Milk Of Magnesia Liq) 30 ml Q12H PRN PO 02/25/17 15:30 02/28/17 08:53 (Narcan Inj) 0.4 mg UNSCH PRN IV 02/25/17 15:30 (Aspirin Chew) 81 mg DAILY CHEW 02/26/17 09:00 03/01/17 09:02 (Ferrous Sulfate) 325 mg TID PO 02/25/17 18:00 03/01/17 13:30 (Imdur) 30 mg DAILY PO 02/26/17 09:00 03/01/17 09:01 (Prinivil) 20 mg DAILY PO 02/26/17 09:00 03/01/17 09:01 (Lopressor) 50 mg BID PO 02/25/17 21:00 03/01/17 09:01 (Effient) 10 mg DAILY PO 02/26/17 09:00 03/01/17 09:00 (Pravachol) 40 mg DAILY PO 02/26/17 09:00 03/01/17 09:02 (Aldactone) 25 mg DAILY PO 02/26/17 09:00 03/01/17 09:01 (Pepcid) 20 mg DAILY PRN PO 02/25/17 15:45 (D50w (Vial) Inj) 25 ml UNSCH PRN IV PUSH 02/25/17 15:30 (Glucagon Inj) 1 mg UNSCH PRN OTHER 02/25/17 15:30 (Morphine Inj) 2 mg Q3H PRN IV PUSH 02/25/17 23:30 03/01/17 12:14 (Mucinex Er) 600 mg BID PO 02/26/17 21:00 03/01/17 09:00 (Catapres) 0.1 mg Q6H PRN PO 02/26/17 18:00 03/01/17 01:54 Heparin Sodium (Porcine) 5000 units 5,000 units Q8HR SQ 02/27/17 22:00 03/01/17 13:30 (Zosyn 3.375 Gm Premix) 50 ml @ 100 mls/hr Q6H IV 02/28/17 11:00 03/01/17 13:29 (Norvasc) 10 mg ONCE ONCE PO 03/01/17 15:30 03/01/17 15:31 (Levemir Inj) 6 units Q12HR SQ 03/01/17 21:00 UNV A/P Assessment and Plan 1. Right lower extremity wound status post general surgery status post I and D and Vacuum placement on anterior right foreleg, Seen by aircraft electrical systems specialist awaiting final recommendations. 2. Status post dog Bite on the RLE 3. Acute on chronic anemia seen by elementary reading specialist Doctor Tamika, suspected low grade Myelodysplasia, status post bone marrow biopsy on April 2016 showed mildly hypocellular bone marrow with trilineage Hypoplasia, given Iron supplement, found Zinc deficiency and given Zinc supplement, normal new bone Marrow biopsy in September 2016, has thrombocytosis likely reactive process, okay to transfuse as needed Hemoglobin today 9. 4. COPD on Bronchodilator, Mucolytic and incentive spirometry, no exacerbation 5. DM II Uncontrolled, her recent hemoglobin A1C on December 03 was 8.1 Poorly controlled today her Levemir was placed on hold and will follow only on sliding scale. 6. CAD status post PCI x 2 and three stents placed. 7. Peripheral Neuropathy stable. continue home medicines. 8 Hypertension Uncontrolled added Amlodipine 10 mg DVT prophylaxis Heparin. Code Status Full Code Discussed Condition With Patient and nurse Miss Collazo in the room appreciated. all questions answered to the best of my abilities. Discharge Planning when cleared by General surgery and Plastic Surgery Maldonado Alves MD Mar 01, 2017 15:32
--- NOTE | 2017-03-01 16:03 | HHI.PR ---
Subjective Subjective Notes Resting in bed Pain controlled Objective Vitals/I&O Vital Signs Date Time Temp Pulse Resp B/P Pulse Ox O2 Delivery O2 Flow Rate FiO2 03/01/17 12:00 96.9 53 17 171/74 95 02/26/17 19:31 Nasal Cannula 2.00 Labs Laboratory Tests Test 03/01/17 10:27 Hemoglobin 9.0 Hematocrit 27.0 Date/Time Procedure Status Source Growth 02/26/17 14:30 Gram Stain - Final Complete Wound Leg 02/26/17 14:30 Wound Culture - Final Complete Escherichia Coli Pseudomonas Aeruginosa 02/26/17 14:30 Fungal Smear - Final Resulted Wound Leg NO FUNGAL ELEMENTS SEEN. 02/26/17 14:30 Fungal Culture Resulted Wound Leg Pending 02/26/17 14:30 Acid Fast Stain - Final Resulted Wound Leg NO ACID FAST BACILLI SEEN 02/26/17 14:30 Mycobacterial Culture Resulted Wound Leg Pending 02/25/17 14:26 Aerobic Blood Culture - Preliminary Resulted Blood Peripheral NO GROWTH IN 4 DAYS 02/25/17 14:26 Anaerobic Blood Culture - Preliminary Resulted Blood Peripheral NO GROWTH IN 4 DAYS Cardiovascular: Regular Lungs: Clear Abdomen: Non-distended, Non-tender Narrative Exam RLE-- wound vac in place with good seal; +pedal pulses A/P Assessment and Plan 66 year old female POD3 I&D of RIGHT leg wound s/p dog bite -Consult plastics today for evaluation of possible skin grafts -Wound Care team following -Wound Vac change MWF -Pain control -Tolerating regular diet Attending Statement The exam, history, and the medical decision-making described in the above note were completed with the assistance of the mid-level provider. I reviewed and agree with the findings presented. I attest that I had a [id number] encounter with the patient on the same day, and personally performed and documented my assessment and findings in the medical record. VAC in tact, will ask plastics to see and then will sign off Cheryl Heaton Mar 01, 2017 16:03 Ajit Delacruz MD Mar 12, 2017 08:18
[2017-03-01] MEDS ORDERED: INSULIN DETEMIR 100 UNITS/ML VIAL SQ SCH (21:00)
[2017-03-02] VITALS: BP 148/60; PULSE 68; RESP 17; TEMP 98.2; O2SAT 98
[2017-03-02] MEDS: PIPERACIL-TAZO 3.375 GM PREMIX 50 ML IV SCH ×4 (04:25→21:46)
[2017-03-02 05:36] LABS: AUTOMATED NEUTROPHIL # 2.9 TH/MM3 (1.8-7.7); BASOPHIL % 0.6 % (0.0-2.0); EOSINOPHIL # 0.1 TH/MM3 (0-0.4); EOSINOPHIL % 2.9 % (0.0-4.0); HEMATOCRIT 26.4 % (35.0-46.0); HEMO FLAGS DIFF FINAL; LYMPH % 24.1 % (9.0-44.0); LYMPHOCYTE # 1.1 TH/MM3 (1.0-4.8); MEAN CELL VOLUME 88.2 FL (80.0-100.0); MEAN CORPUSCULAR HEMOGLOBIN 30.2 PG (27.0-34.0); MEAN CORPUSCULAR HGB CONC 34.2 % (32.0-36.0); MONO % 10.3 % (0.0-8.0); NEUT % 62.1 % (16.0-70.0); PLATELET COUNT 316 TH/MM3 (150-450); RED BLOOD COUNT 2.99 MIL/MM3 (4.00-5.30); RED CELL DISTRIBUTION WIDTH 14.5 % (11.6-17.2); WHITE BLOOD COUNT 4.7 TH/MM3 (4.0-11.0)
[2017-03-02] MEDS: INSULIN ASPART SUPPLEMENTAL SCALE SQ SCH ×4 (06:35→21:00)
[2017-03-02] MEDS: HEPARIN SODIUM - SQ 10,000 UNITS/ML VIAL SQ SCH ×3 (06:37→21:45)
[2017-03-02 08:00] VITALS: BP 142/64; PULSE 66; RESP 17; TEMP 98.4; O2SAT 93
[2017-03-02] MEDS: ACETAMINOPHEN 325 MG TAB PO PRN (08:31)
[2017-03-02] MEDS: diphenhydrAMINE HCL 25 MG CAP PO PRN (08:31)
[2017-03-02] MEDS: METOPROLOL TARTRATE 50 MG TAB PO SCH ×2 (08:32→21:44)
[2017-03-02] MEDS: guaiFENesin E.R. 600 MG TAB PO SCH ×2 (08:32→21:44)
[2017-03-02] MEDS: ISOSORBIDE MONONITRATE 30 MG TAB PO SCH (08:32)
[2017-03-02] MEDS: LISINOPRIL 20 MG TAB PO SCH (08:32)
[2017-03-02] MEDS: PRASUGREL 10 MG TAB PO SCH (08:32)
[2017-03-02] MEDS: ASPIRIN 81 MG CHEW TAB CHEW SCH (08:32)
[2017-03-02] MEDS: SPIRONOLACTONE 25 MG TAB PO SCH (08:32)
[2017-03-02] MEDS: PRAVASTATIN SOD 40 MG TAB PO SCH (08:32)
[2017-03-02] MEDS: SODIUM CHLORIDE 0.9% FLUSH 10 ML FLUSH IV FLUSH SCH ×2 (09:28→21:43)
[2017-03-02] MEDS: IRON SUCROSE INJ 200 MG in SODIUM CHLORIDE 0.9% INJ 100 ML IV SCH (09:28)
[2017-03-02 12:00] VITALS: BP 164/70; PULSE 63; RESP 16; TEMP 98; O2SAT 93
--- NOTE | 2017-03-02 12:12 | PD.ONC.PN ---
Subjective Subjective Remarks Afebrile overnight. Tolerating wound vac. Eating well. Tolerating IV iron. Objective Data Date Time Temp Pulse Resp B/P Pulse Ox O2 Delivery O2 Flow Rate FiO2 03/02/17 08:00 98.4 66 17 142/64 93 03/02/17 00:00 98.2 68 17 148/60 98 03/01/17 20:00 98.8 67 17 154/52 97 03/01/17 16:00 97.5 58 17 169/74 97 03/02/17 03/02/17 03/02/17 07:00 15:00 23:00 Intake Total 240 ml Output Total 600 ml Balance -360 ml Result Diagram: 03/02/17 0454 02/26/17 1042 Laboratory Results Laboratory Tests Test 03/02/17 04:54 White Blood Count 4.7 TH/MM3 Red Blood Count 2.99 MIL/MM3 Hemoglobin 9.0 GM/DL Hematocrit 26.4 % Mean Corpuscular Volume 88.2 FL Mean Corpuscular Hemoglobin 30.2 PG Mean Corpuscular Hemoglobin 34.2 % Concent Red Cell Distribution Width 14.5 % Platelet Count 316 TH/MM3 Mean Platelet Volume 7.8 FL Neutrophils (%) (Auto) 62.1 % Lymphocytes (%) (Auto) 24.1 % Monocytes (%) (Auto) 10.3 % Eosinophils (%) (Auto) 2.9 % Basophils (%) (Auto) 0.6 % Neutrophils # (Auto) 2.9 TH/MM3 Lymphocytes # (Auto) 1.1 TH/MM3 Monocytes # (Auto) 0.5 TH/MM3 Eosinophils # (Auto) 0.1 TH/MM3 Basophils # (Auto) 0.0 TH/MM3 CBC Comment DIFF FINAL Differential Comment Administered Medications Medications (Trade) Dose Ordered Sig/Marie Route PRN Reason Start Time Stop Time Status Last Admin Dose Admin Sodium Chloride (NS Flush) 2 ml BID IV FLUSH 02/25/17 21:00 03/02/17 09:28 Acetaminophen (Tylenol) 650 mg Q4H PRN PO TEMP > 100.4 02/25/17 15:30 03/02/17 08:31 Ondansetron HCl (Zofran Inj) 4 mg Q6H PRN IVP NAUSEA OR VOMITING 02/25/17 15:30 02/26/17 10:10 Magnesium Hydroxide (Milk Of Magnesia Liq) 30 ml Q12H PRN PO CONSTIPATION 02/25/17 15:30 02/28/17 08:53 Aspirin (Aspirin Chew) 81 mg DAILY CHEW 02/26/17 09:00 03/02/17 08:32 Isosorbide Mononitrate (Imdur) 30 mg DAILY PO 02/26/17 09:00 03/02/17 08:32 Lisinopril (Prinivil) 20 mg DAILY PO 02/26/17 09:00 03/02/17 08:32 Metoprolol Tartrate (Lopressor) 50 mg BID PO 02/25/17 21:00 03/02/17 08:32 Prasugrel (Effient) 10 mg DAILY PO 02/26/17 09:00 03/02/17 08:32 Pravastatin Sodium (Pravachol) 40 mg DAILY PO 02/26/17 09:00 03/02/17 08:32 Spironolactone (Aldactone) 25 mg DAILY PO 02/26/17 09:00 03/02/17 08:32 Morphine Sulfate (Morphine Inj) 2 mg Q3H PRN IV PUSH pain >5 02/25/17 23:30 03/01/17 22:31 Guaifenesin (Mucinex Er) 600 mg BID PO 02/26/17 21:00 03/02/17 08:32 Clonidine (Catapres) 0.1 mg Q6H PRN PO SBP>160, DBP>90 02/26/17 18:00 03/01/17 01:54 Heparin Sodium (Porcine) 5000 units 5,000 units Q8HR SQ 02/27/17 22:00 03/02/17 06:37 Piperacillin Sod/ Tazobactam Sod 50 ml @ 100 mls/hr Q6H IV 02/28/17 11:00 03/02/17 04:25 Iron Sucrose/ Sodium Chloride (Venofer Inj/NS Inj) 110 ml @ 110 mls/hr DAILY IV 03/02/17 09:00 03/04/17 09:59 03/02/17 09:28 Diphenhydramine HCl (Benadryl) 25 mg Q4H PRN PO PRE-MEDICATE FOR BLOOD PRODUCT 03/02/17 08:15 03/02/17 08:31 Objective Remarks GENERAL: Middle aged female, supine in bed in nad. SKIN: Warm and dry. RLE with wound vac HEAD: Normocephalic. EYES: No injection or drainage. NECK: Supple, trachea midline. CARDIOVASCULAR: Regular rate and rhythm RESPIRATORY: Breath sounds equal bilaterally. No accessory muscle use. GASTROINTESTINAL: Abdomen soft, non-tender, nondistended. EXTREMITIES: No cyanosis NEUROLOGICAL: aox3, normal speech. Assessment/Plan Problem List: (1) Anemia, iron deficiency Status: Chronic Plan: 03/02: IV Venofer x 3 -- Acute on chronic anemia. acute component due to dog bite related blood loss. --due to iron deficiency as well as possible low grade myelodysplasia. 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 --bone marrow biopsy September 2016 --showed normocellular bone marrow with trilineage Hematopoiesis. +stainable iron noted at that time. (2) Dog bite of multiple sites of right lower extremity Status: Acute Plan: --on Zosyn --s/p debridement in OR --wound vac being managed by surgery/primary Assessment 66y/o with h/o chronic anemia and low-grade MDS admitted with dog bite. h/o Arthritis. Asthma, COPD, Coronary artery disease, Diabetes, Hypertension, Hiatal hernia Peripheral neuropathy Zinc deficiency. Plan 1. monitor CBC 2. IV Venofer x 3 days. premedicate with Tylenol and Benadryl. Attending Statement The exam, history, and the medical decision-making described in the above note were completed with the assistance of the mid-level provider. I reviewed and agree with the findings presented. I attest that I had a [id number] encounter with the patient on the same day, and personally performed and documented my assessment and findings in the medical record. Problem Qualifiers (1) Dog bite of multiple sites of right lower extremity: Qualified Code: S81.851D - Dog bite of multiple sites of right lower extremity , subsequent encounter Yelitza Tipton Mar 02, 2017 12:12 Mati Schmidt MD Mar 02, 2017 23:08
[2017-03-02] MEDS: INSULIN DETEMIR 100 UNITS/ML VIAL SQ SCH ×2 (12:31→21:00)
--- NOTE | 2017-03-02 13:17 | HHI.PR ---
Subjective Remarks This is a pleasant 66 y/o Female who came to to ER with Right lower extremity necrotic lesion, she was initially seen on 02/09/17 in ER with an extensive dog bite, given Unasyn 3 grams IV, wound was treated and discharged on Augmentin, she completed the antibiotic, re evaluated in ER on 02/17/17, then came two days ago for stitches removal the wound did not look infected at that time, but came again with pain and swelling on her lower extremity. The patient now presents with an angry-appearing right lower extremity along with some pain and swelling. as we know she has Anemia, OA, Asthma, DM I, CAD, Hiatal hernia, Hypertension, Neuropathy. Seen in her bedroom in the presence of her and her Grandsons. stable status post I and D and Vacuum in place worsening her blood sugar level, will re start her Levemir she uses 16 units at home will continue sliding scale and start Levemir at 10 units BID. 02/28 Stable no new issues, awaiting final recommendations. from employment service specialist consulted, continue Vacuum management, status post I and D, continue with uncontrolled blood pressure. 03/01 Seen in her bedroom in the presence of nurse she had Hypoglycemia her Levemir was stopped and following. 03/02 Complaint of constipation, will start Lactulose. better control of her blood pressure, blood sugar uncontrolled and re started Levemir low dose of 6 units BID. No Nausea vomit or diarrhea. Objective Vital Signs Date Time Temp Pulse Resp B/P Pulse Ox O2 Delivery O2 Flow Rate FiO2 03/02/17 12:00 98.0 63 16 164/70 93 03/02/17 08:00 98.4 66 17 142/64 93 03/02/17 00:00 98.2 68 17 148/60 98 03/01/17 20:00 98.8 67 17 154/52 97 03/01/17 16:00 97.5 58 17 169/74 97 I/O 03/01/17 03/01/17 03/01/17 03/02/17 03/02/17 03/02/17 07:00 15:00 23:00 07:00 15:00 23:00 Intake Total 498 ml 529 ml 240 ml 240 ml Output Total 800 ml 825 ml 800 ml 600 ml Balance -302 ml -296 ml -560 ml -360 ml Intake Oral 320 ml 480 ml 240 ml 240 ml IV Total 178 ml 49 ml Output Urine Total 800 ml 800 ml 800 ml 600 ml Drainage Total 25 ml # Bowel Movements 0 0 Result Diagram: 03/02/17 0454 02/26/17 1042 Imaging Last Impressions Lower Extremity Ultrasound 02/25/17 1356 Signed Impressions: Service Date/Time: January 14:49 - CONCLUSION: No evidence of right lower extremity DVT. Dwain Estevez MD Procedures Status post I and D and Vacuum placement Other Results Laboratory Tests Test 02/26/17 02/26/17 03/02/17 00:40 10:42 04:54 Blood Type B NEGATIVE Antibody Screen NEGATIVE Crossmatch Leukocyte-Reduced Red Blood Cells Blood Bank Comment Sodium Level 141 MEQ/L Potassium Level 4.5 MEQ/L Chloride Level 110 MEQ/L Carbon Dioxide Level 24.9 MEQ/L Anion Gap 6 MEQ/L Blood Urea Nitrogen 19 MG/DL Creatinine 1.03 MG/DL Estimat Glomerular Filtration 54 ML/MIN Rate Random Glucose 140 MG/DL Calcium Level 9.5 MG/DL White Blood Count 4.7 TH/MM3 Red Blood Count 2.99 MIL/MM3 Hemoglobin 9.0 GM/DL Hematocrit 26.4 % Mean Corpuscular Volume 88.2 FL Mean Corpuscular Hemoglobin 30.2 PG Mean Corpuscular Hemoglobin 34.2 % Concent Red Cell Distribution Width 14.5 % Platelet Count 316 TH/MM3 Mean Platelet Volume 7.8 FL Neutrophils (%) (Auto) 62.1 % Lymphocytes (%) (Auto) 24.1 % Monocytes (%) (Auto) 10.3 % Eosinophils (%) (Auto) 2.9 % Basophils (%) (Auto) 0.6 % Neutrophils # (Auto) 2.9 TH/MM3 Lymphocytes # (Auto) 1.1 TH/MM3 Monocytes # (Auto) 0.5 TH/MM3 Eosinophils # (Auto) 0.1 TH/MM3 Basophils # (Auto) 0.0 TH/MM3 CBC Comment DIFF FINAL Differential Comment Objective Remarks GENERAL: No acute distress. SKIN: Warm and dry. Right lower extremity with vacuum in place. on anterior foreleg. HEAD: Atraumatic. Normocephalic. EYES: Pupils equal and round. ENT: No nasal bleeding or discharge. Mucous membranes pink and moist. NECK: Trachea midline. CARDIOVASCULAR: Regular rate and rhythm. RESPIRATORY: No accessory muscle use. GASTROINTESTINAL: Abdomen soft, non-tender, nondistended. MUSCULOSKELETAL: Right leg with Vacuum in place. NEUROLOGICAL: Awake and alert. No obvious cranial nerve deficits. Motor grossly within normal limits. Normal speech. PSYCHIATRIC: Appropriate mood and affect; insight and judgment normal. 1. Right lower extremity wound status post general surgery consult recommended for I and D today and Vacuum placement continue Unasyn but will remove antibiotics if not needed after I and D. 2. Status post dog Bite on the RLE 3. Acute on chronic anemia seen by leave specialist Doctor Tamika, suspected low grade Myelodysplasia, status post bone marrow biopsy on April 2016 showed mildly hypocellular bone marrow with trilineage Hypoplasia, given Iron supplement, found Zinc deficiency and given Zinc supplement, normal new bone Marrow biopsy in September 2016, has thrombocytosis likely reactive process, okay to transfuse as needed 4. COPD on Bronchodilator, Mucolytic and incentive spirometry 5. DM II continue sliding scale 6. CAD status post PCI x 2 and three stents placed. 7. Peripheral Neuropathy stable. continue home medicines. DVT prophylaxis with SCDs and early activity. will have procedure later today. Code Status Full Code Discussed Condition With Patient and nurse in the room. 8 Hypertension uncontrolled continued her home medicines and added Clonidine if systolic blood pressure in 160 mm Hg or over. Medications and IVs Current Medications Medications (Trade) Dose Ordered Sig/Marie Route Start Time Stop Time Status Last Admin (NS Flush) 2 ml UNSCH PRN IV FLUSH 02/25/17 15:30 (NS Flush) 2 ml BID IV FLUSH 02/25/17 21:00 03/02/17 09:28 (Tylenol) 650 mg Q4H PRN PO 02/25/17 15:30 03/02/17 08:31 (Zofran Inj) 4 mg Q6H PRN IVP 02/25/17 15:30 02/26/17 10:10 (Milk Of Magnesia Liq) 30 ml Q12H PRN PO 02/25/17 15:30 02/28/17 08:53 (Narcan Inj) 0.4 mg UNSCH PRN IV 02/25/17 15:30 (Aspirin Chew) 81 mg DAILY CHEW 02/26/17 09:00 03/02/17 08:32 (Imdur) 30 mg DAILY PO 02/26/17 09:00 03/02/17 08:32 (Prinivil) 20 mg DAILY PO 02/26/17 09:00 03/02/17 08:32 (Lopressor) 50 mg BID PO 02/25/17 21:00 03/02/17 08:32 (Effient) 10 mg DAILY PO 02/26/17 09:00 03/02/17 08:32 (Pravachol) 40 mg DAILY PO 02/26/17 09:00 03/02/17 08:32 (Aldactone) 25 mg DAILY PO 02/26/17 09:00 03/02/17 08:32 (Pepcid) 20 mg DAILY PRN PO 02/25/17 15:45 (D50w (Vial) Inj) 25 ml UNSCH PRN IV PUSH 02/25/17 15:30 (Glucagon Inj) 1 mg UNSCH PRN OTHER 02/25/17 15:30 (Morphine Inj) 2 mg Q3H PRN IV PUSH 02/25/17 23:30 03/01/17 22:31 (Mucinex Er) 600 mg BID PO 02/26/17 21:00 03/02/17 08:32 (Catapres) 0.1 mg Q6H PRN PO 02/26/17 18:00 03/01/17 01:54 Heparin Sodium (Porcine) 5000 units 5,000 units Q8HR SQ 02/27/17 22:00 03/02/17 12:32 Piperacillin Sod/ Tazobactam Sod 50 ml @ 100 mls/hr Q6H IV 02/28/17 11:00 03/02/17 12:30 (Venofer Inj/NS Inj) 110 ml @ 110 mls/hr DAILY IV 03/02/17 09:00 03/04/17 09:59 03/02/17 09:28 (Benadryl) 25 mg Q4H PRN PO 03/02/17 08:15 03/02/17 08:31 (Levemir Inj) 6 units Q12HR SQ 03/02/17 12:00 03/02/17 12:31 A/P Assessment and Plan 1. Right lower extremity wound status post general surgery status post I and D and Vacuum placement on anterior right foreleg, Seen by employment service specialist awaiting final recommendations. 2. Status post dog Bite on the RLE 3. Acute on chronic anemia seen by leave specialist Doctor Tamika, suspected low grade Myelodysplasia, status post bone marrow biopsy on April 2016 showed mildly hypocellular bone marrow with trilineage Hypoplasia, given Iron supplement, found Zinc deficiency and given Zinc supplement, normal new bone Marrow biopsy in September 2016, has thrombocytosis likely reactive process, okay to transfuse as needed recommended by Hematology Venofer x 3, 4. COPD on Bronchodilator, Mucolytic and incentive spirometry, no exacerbation 5. DM II Uncontrolled, her recent hemoglobin A1C on December 03 was 8.1 Poorly controlled today she has uncontrolled blood sugar due to that her Levemir was discontinued due to Hypoglycemia, re started Levemir 6 units BID, 6. CAD status post PCI x 2 and three stents placed. 7. Peripheral Neuropathy stable. continue home medicines. 8 Hypertension better control and following. DVT prophylaxis Heparin. Code Status Full Code Discussed Condition With Patient and nurse Miss Collazo in the room appreciated. all questions answered to the best of my abilities. Discharge Planning when cleared by General surgery and Plastic Surgery Maldonado Alves MD Mar 02, 2017 13:17
[2017-03-02 16:00] VITALS: BP 104/69; PULSE 66; RESP 17; TEMP 97.6; O2SAT 95
[2017-03-02] MEDS: MORPHINE SULFATE 4 MG/ML INJ IV PUSH PRN ×2 (16:58→21:34)
[2017-03-02] MEDS: MAGNESIUM HYDROXIDE SUSP 30 ML CUP PO PRN (17:47)
[2017-03-02 20:00] VITALS: BP 124/58; PULSE 63; RESP 17; TEMP 98; O2SAT 96
[2017-03-03] VITALS: BP 142/65; PULSE 65; RESP 17; TEMP 98.1; O2SAT 96
[2017-03-03] MEDS: MORPHINE SULFATE 4 MG/ML INJ IV PUSH PRN ×2 (03:50→10:53)
[2017-03-03] MEDS: PIPERACIL-TAZO 3.375 GM PREMIX 50 ML IV SCH ×4 (03:54→22:59)
[2017-03-03] MEDS: HEPARIN SODIUM - SQ 10,000 UNITS/ML VIAL SQ SCH ×3 (05:01→22:46)
[2017-03-03 05:42] LABS: AUTOMATED NEUTROPHIL # 2.6 TH/MM3 (1.8-7.7); BASOPHIL % 0.7 % (0.0-2.0); EOSINOPHIL # 0.1 TH/MM3 (0-0.4); EOSINOPHIL % 2.7 % (0.0-4.0); HEMATOCRIT 26.2 % (35.0-46.0); HEMO FLAGS DIFF FINAL; LYMPH % 29.2 % (9.0-44.0); LYMPHOCYTE # 1.4 TH/MM3 (1.0-4.8); MEAN CELL VOLUME 87.9 FL (80.0-100.0); MEAN CORPUSCULAR HEMOGLOBIN 29.6 PG (27.0-34.0); MEAN CORPUSCULAR HGB CONC 33.7 % (32.0-36.0); MONO % 10.7 % (0.0-8.0); NEUT % 56.7 % (16.0-70.0); PLATELET COUNT 285 TH/MM3 (150-450); RED BLOOD COUNT 2.98 MIL/MM3 (4.00-5.30); RED CELL DISTRIBUTION WIDTH 13.9 % (11.6-17.2); WHITE BLOOD COUNT 4.6 TH/MM3 (4.0-11.0)
[2017-03-03] MEDS: INSULIN ASPART SUPPLEMENTAL SCALE SQ SCH ×4 (06:09→21:00)
--- NOTE | 2017-03-03 07:14 | MP ---
cc: AMANDA GUZMÁN DATE OF SURGERY: 02/26/2017 PREOPERATIVE DIAGNOSIS Infected dog bite right lower extremity with a necrotic infected wound. POSTOPERATIVE DIAGNOSIS Infected dog bite right lower extremity with a necrotic infected wound. PROCEDURE 1. Debridement of skin and subcutaneous nonviable tissue sharply, 10 cm x 12 cm area of the right lower extremity. 2. VAC placement to the 10 cm x 12 cm area of the right lower extremity. ANESTHESIA General. ATTENDING SURGEON Nubia [employer]AT OPEN STACK ADMINISTRATOR Staff. ESTIMATED BLOOD LOSS 20 cc. COMPLICATIONS None. FINDINGS A 10 cm x 12 cm area of necrotic skin and subcutaneous tissue. Intact musculature. INDICATION FOR PROCEDURE The patient is a 66-year-old female who was bitten by one of her dogs on the right lower extremity approximately two weeks ago. The patient underwent wound care as supervised by the emergency department; however, she developed significant necrosis of the wound and secondary infection. The patient was admitted to the [facility] for treatment of her wound and further debridement and wound care. Of note the patient is on blood thinner Effient for a recently placed stent. The risks, benefits and alternatives including increased risk of bleeding were discussed with the patient prior to the procedure and the patient agreed to undergo the procedure. DETAILS OF PROCEDURE After informed consent was obtained, the patient was taken to the operating room, placed in supine position and placed under general anesthesia. The patient's right lower extremity was prepped and draped in sterile fashion. A timeout was performed. I used Bovie electrocautery as well as Metzenbaum scissors to debride all nonviable skin over this wound. We then used the Metzenbaum scissors and the curet to remove all nonviable subcutaneous tissue. We then used pulse lavage to irrigate three liters of sterile saline over this wound. At this point in time we felt like we had removed all nonviable tissue. We had good bleeding edges. We did use the Bovie electrocautery sparingly to get hemostasis as the patient was on blood thinners. We had excellent hemostasis at the end of the case and the area of debridement of skin and subcutaneous tissue was 10 cm x 12 cm in an irregular shape. We then placed the VAC dressing. This was a 10 cm x 12 cm VAC dressing custom cut to the wound and placed onto the wound per the catering sales manager's recommendations. We had a good seal with a good technical result on the VAC. At this point in time the patient was discontinued from anesthesia, taken to PACU in stable condition. The patient tolerated the procedure well. There were no apparent complications. All counts were correct. I was present and scrubbed for the entire procedure. MD RAFA Talbert/ANASTASIA /3:26 PM /6:56 AM
[2017-03-03 08:00] VITALS: BP 156/71; PULSE 59; RESP 17; TEMP 97.3; O2SAT 96
[2017-03-03] MEDS: INSULIN DETEMIR 100 UNITS/ML VIAL SQ SCH ×2 (09:00→21:00)
[2017-03-03] MEDS: PRASUGREL 10 MG TAB PO SCH (09:01)
[2017-03-03] MEDS: ISOSORBIDE MONONITRATE 30 MG TAB PO SCH (09:01)
[2017-03-03] MEDS: ACETAMINOPHEN 325 MG TAB PO PRN (09:02)
[2017-03-03] MEDS: METOPROLOL TARTRATE 50 MG TAB PO SCH ×2 (09:02→22:43)
[2017-03-03] MEDS: SPIRONOLACTONE 25 MG TAB PO SCH (09:02)
[2017-03-03] MEDS: diphenhydrAMINE HCL 25 MG CAP PO PRN (09:02)
[2017-03-03] MEDS: ASPIRIN 81 MG CHEW TAB CHEW SCH (09:02)
[2017-03-03] MEDS: PRAVASTATIN SOD 40 MG TAB PO SCH (09:02)
[2017-03-03] MEDS: guaiFENesin E.R. 600 MG TAB PO SCH ×2 (09:03→22:43)
[2017-03-03] MEDS: LISINOPRIL 20 MG TAB PO SCH (09:03)
[2017-03-03] MEDS: SODIUM CHLORIDE 0.9% FLUSH 10 ML FLUSH IV FLUSH SCH ×2 (09:05→22:43)
[2017-03-03] MEDS: IRON SUCROSE INJ 200 MG in SODIUM CHLORIDE 0.9% INJ 100 ML IV SCH (09:55)
[2017-03-03] MEDS ORDERED: LACTULOSE SYRUP 20 GM/30 ML CUP PO ONE (11:45)
--- NOTE | 2017-03-03 11:45 | HHI.PR ---
Subjective Remarks This is a pleasant 66 y/o Female who came to to ER with Right lower extremity necrotic lesion, she was initially seen on 02/09/17 in ER with an extensive dog bite, given Unasyn 3 grams IV, wound was treated and discharged on Augmentin, she completed the antibiotic, re evaluated in ER on 02/17/17, then came two days ago for stitches removal the wound did not look infected at that time, but came again with pain and swelling on her lower extremity. The patient now presents with an angry-appearing right lower extremity along with some pain and swelling. as we know she has Anemia, OA, Asthma, DM I, CAD, Hiatal hernia, Hypertension, Neuropathy. Seen in her bedroom in the presence of her and her Grandsons. stable status post I and D and Vacuum in place worsening her blood sugar level, will re start her Levemir she uses 16 units at home will continue sliding scale and start Levemir at 10 units BID. 02/28 Stable no new issues, awaiting final recommendations. from senior telecommunications specialist consulted, continue Vacuum management, status post I and D, continue with uncontrolled blood pressure. 03/01 Seen in her bedroom in the presence of nurse she had Hypoglycemia her Levemir was stopped and following. 03/02 Complaint of constipation, will start Lactulose. better control of her blood pressure, blood sugar uncontrolled and re started Levemir low dose of 6 units BID. 03/03 Constipated, given Lactulose, blood pressure with mild uncontrol, if her Creatinine is stable will increase RUSS inhibitor or add Hydralazine, No Nausea, vomit or diarrhea. continue Wound Vac in place. Objective Vital Signs Date Time Temp Pulse Resp B/P Pulse Ox O2 Delivery O2 Flow Rate FiO2 03/03/17 08:00 97.3 59 17 156/71 96 03/03/17 00:00 98.1 65 17 142/65 96 03/02/17 20:00 98.0 63 17 124/58 96 03/02/17 16:00 97.6 66 17 104/69 95 03/02/17 12:00 98.0 63 16 164/70 93 I/O 03/02/17 03/02/17 03/02/17 03/03/17 03/03/17 03/03/17 07:00 15:00 23:00 07:00 15:00 23:00 Intake Total 240 ml 628 ml 240 ml 440 ml Output Total 600 ml 400 ml 25 ml Balance -360 ml 228 ml 240 ml 415 ml Intake Oral 240 ml 480 ml 240 ml 240 ml IV Total 148 ml 0 ml 200 ml Output Urine Total 600 ml 400 ml Drainage Total 25 ml # Voids 3 3 # Bowel Movements 0 Result Diagram: 03/03/17 0509 Imaging Last Impressions Lower Extremity Ultrasound 02/25/17 1356 Signed Impressions: Service Date/Time: January 14:49 - CONCLUSION: No evidence of right lower extremity DVT. Dwain Estevez MD Procedures Status post I and D and Vacuum placement Other Results Laboratory Tests Test 02/26/17 03/03/17 00:40 05:09 Blood Type B NEGATIVE Antibody Screen NEGATIVE Crossmatch Leukocyte-Reduced Red Blood Cells Blood Bank Comment White Blood Count 4.6 TH/MM3 Red Blood Count 2.98 MIL/MM3 Hemoglobin 8.8 GM/DL Hematocrit 26.2 % Mean Corpuscular Volume 87.9 FL Mean Corpuscular Hemoglobin 29.6 PG Mean Corpuscular Hemoglobin 33.7 % Concent Red Cell Distribution Width 13.9 % Platelet Count 285 TH/MM3 Mean Platelet Volume 7.7 FL Neutrophils (%) (Auto) 56.7 % Lymphocytes (%) (Auto) 29.2 % Monocytes (%) (Auto) 10.7 % Eosinophils (%) (Auto) 2.7 % Basophils (%) (Auto) 0.7 % Neutrophils # (Auto) 2.6 TH/MM3 Lymphocytes # (Auto) 1.4 TH/MM3 Monocytes # (Auto) 0.5 TH/MM3 Eosinophils # (Auto) 0.1 TH/MM3 Basophils # (Auto) 0.0 TH/MM3 CBC Comment DIFF FINAL Differential Comment Objective Remarks GENERAL: No acute distress. SKIN: Warm and dry. Right lower extremity with vacuum in place. on anterior foreleg. HEAD: Atraumatic. Normocephalic. EYES: Pupils equal and round. ENT: No nasal bleeding or discharge. Mucous membranes pink and moist. NECK: Trachea midline. CARDIOVASCULAR: Regular rate and rhythm. RESPIRATORY: No accessory muscle use. GASTROINTESTINAL: Abdomen soft, non-tender, nondistended. MUSCULOSKELETAL: Right leg with Vacuum in place. NEUROLOGICAL: Awake and alert. No obvious cranial nerve deficits. Motor grossly within normal limits. Normal speech. PSYCHIATRIC: Appropriate mood and affect; insight and judgment normal. 1. Right lower extremity wound status post general surgery consult recommended for I and D today and Vacuum placement continue Unasyn but will remove antibiotics if not needed after I and D. 2. Status post dog Bite on the RLE 3. Acute on chronic anemia seen by access specialist Doctor Tamika, suspected low grade Myelodysplasia, status post bone marrow biopsy on April 2016 showed mildly hypocellular bone marrow with trilineage Hypoplasia, given Iron supplement, found Zinc deficiency and given Zinc supplement, normal new bone Marrow biopsy in September 2016, has thrombocytosis likely reactive process, okay to transfuse as needed 4. COPD on Bronchodilator, Mucolytic and incentive spirometry 5. DM II continue sliding scale 6. CAD status post PCI x 2 and three stents placed. 7. Peripheral Neuropathy stable. continue home medicines. DVT prophylaxis with SCDs and early activity. will have procedure later today. Code Status Full Code Discussed Condition With Patient and nurse in the room. 8 Hypertension uncontrolled continued her home medicines and added Clonidine if systolic blood pressure in 160 mm Hg or over. Medications and IVs Current Medications Medications (Trade) Dose Ordered Sig/Marie Route Start Time Stop Time Status Last Admin (NS Flush) 2 ml UNSCH PRN IV FLUSH 02/25/17 15:30 (NS Flush) 2 ml BID IV FLUSH 02/25/17 21:00 03/03/17 09:05 (Tylenol) 650 mg Q4H PRN PO 02/25/17 15:30 03/03/17 09:02 (Zofran Inj) 4 mg Q6H PRN IVP 02/25/17 15:30 02/26/17 10:10 (Milk Of Magnesia Liq) 30 ml Q12H PRN PO 02/25/17 15:30 03/02/17 17:47 (Narcan Inj) 0.4 mg UNSCH PRN IV 02/25/17 15:30 (Aspirin Chew) 81 mg DAILY CHEW 02/26/17 09:00 03/03/17 09:02 (Imdur) 30 mg DAILY PO 02/26/17 09:00 03/03/17 09:01 (Prinivil) 20 mg DAILY PO 02/26/17 09:00 03/03/17 09:03 (Lopressor) 50 mg BID PO 02/25/17 21:00 03/03/17 09:02 (Effient) 10 mg DAILY PO 02/26/17 09:00 03/03/17 09:01 (Pravachol) 40 mg DAILY PO 02/26/17 09:00 03/03/17 09:02 (Aldactone) 25 mg DAILY PO 02/26/17 09:00 03/03/17 09:02 (Pepcid) 20 mg DAILY PRN PO 02/25/17 15:45 (D50w (Vial) Inj) 25 ml UNSCH PRN IV PUSH 02/25/17 15:30 (Glucagon Inj) 1 mg UNSCH PRN OTHER 02/25/17 15:30 (Morphine Inj) 2 mg Q3H PRN IV PUSH 02/25/17 23:30 03/03/17 10:53 (Mucinex Er) 600 mg BID PO 02/26/17 21:00 03/03/17 09:03 (Catapres) 0.1 mg Q6H PRN PO 02/26/17 18:00 03/01/17 01:54 Heparin Sodium (Porcine) 5000 units 5,000 units Q8HR SQ 02/27/17 22:00 03/03/17 05:01 Piperacillin Sod/ Tazobactam Sod 50 ml @ 100 mls/hr Q6H IV 02/28/17 11:00 03/03/17 11:18 (Venofer Inj/NS Inj) 110 ml @ 110 mls/hr DAILY IV 03/02/17 09:00 03/04/17 09:59 03/03/17 09:55 (Benadryl) 25 mg Q4H PRN PO 03/02/17 08:15 03/03/17 09:02 (Levemir Inj) 6 units Q12HR SQ 03/02/17 12:00 03/03/17 09:00 (Norvasc) 10 mg DAILY PO 03/02/17 14:00 03/03/17 09:01 A/P Assessment and Plan 1. Right lower extremity wound status post general surgery status post I and D and Vacuum placement on anterior right foreleg, Seen by senior telecommunications specialist awaiting final recommendations. 2. Status post dog Bite on the RLE 3. Acute on chronic anemia seen by access specialist Doctor Tamika, suspected low grade Myelodysplasia, status post bone marrow biopsy on April 2016 showed mildly hypocellular bone marrow with trilineage Hypoplasia, given Iron supplement, found Zinc deficiency and given Zinc supplement, normal new bone Marrow biopsy in September 2016, has thrombocytosis likely reactive process, okay to transfuse as needed recommended by Hematology Venofer x 3, 4. COPD on Bronchodilator, Mucolytic and incentive spirometry, no exacerbation 5. DM II Uncontrolled, her recent hemoglobin A1C on December 03 was 8.1 Poorly controlled Better control continue Levemir 6 units BID. 6. CAD status post PCI x 2 and three stents placed. 7. Peripheral Neuropathy stable. continue home medicines. 8 Hypertension better control and following. asked for BMP and CBC if her Creatinine is controlled will optimize RUSS inhibitor. 9. Constipation on Lactulose. DVT prophylaxis Heparin. Code Status Full Code Discussed Condition With Patient and nurse Miss Lara the patient is asking to start pain medicine by mouth and leave the Morphine as Breakthrough I agree. Discharge Planning when cleared by General surgery and Plastic Surgery Maldonado Alves MD Mar 03, 2017 11:45
[2017-03-03 12:00] VITALS: BP 137/65; PULSE 61; RESP 16; TEMP 96.9; O2SAT 95
[2017-03-03] MEDS ORDERED: MORPHINE SULFATE 4 MG/ML INJ IV PUSH PRN (12:00)
[2017-03-03 12:42] LABS: AUTOMATED NEUTROPHIL # 3.4 TH/MM3 (1.8-7.7); BASOPHIL % 0.6 % (0.0-2.0); EOSINOPHIL # 0.1 TH/MM3 (0-0.4); EOSINOPHIL % 2.6 % (0.0-4.0); HEMATOCRIT 26.3 % (35.0-46.0); HEMO FLAGS DIFF FINAL; LYMPH % 26.1 % (9.0-44.0); LYMPHOCYTE # 1.4 TH/MM3 (1.0-4.8); MEAN CELL VOLUME 88.2 FL (80.0-100.0); MEAN CORPUSCULAR HEMOGLOBIN 29.1 PG (27.0-34.0); MONO % 8.9 % (0.0-8.0); NEUT % 61.8 % (16.0-70.0); PLATELET COUNT 300 TH/MM3 (150-450); RED BLOOD COUNT 2.98 MIL/MM3 (4.00-5.30); RED CELL DISTRIBUTION WIDTH 14.1 % (11.6-17.2); WHITE BLOOD COUNT 5.5 TH/MM3 (4.0-11.0)
[2017-03-03 13:02] LABS: BICARBONATE 26.9 MEQ/L (21.0-32.0); POTASSIUM 4.6 MEQ/L (3.5-5.1)
[2017-03-03] MEDS: MORPHINE SULFATE 15 MG TAB PO PRN ×2 (15:48→22:19)
[2017-03-03 16:00] VITALS: BP 148/67; PULSE 62; RESP 17; TEMP 97.2; O2SAT 96
[2017-03-03 20:00] VITALS: BP 136/72; PULSE 68; RESP 20; TEMP 98; O2SAT 95
--- NOTE | 2017-03-03 22:05 | PD.ONC.PN ---
Subjective Subjective Remarks resting comfortably tolerated iron infusions no bleeding d/w rn Objective Data Date Time Temp Pulse Resp B/P Pulse Ox O2 Delivery O2 Flow Rate FiO2 03/03/17 16:00 97.2 62 17 148/67 96 03/03/17 12:00 96.9 61 16 137/65 95 03/03/17 08:00 97.3 59 17 156/71 96 03/03/17 00:00 98.1 65 17 142/65 96 03/03/17 03/03/17 03/03/17 07:00 15:00 23:00 Intake Total 440 ml 920 ml Output Total 25 ml 1350 ml Balance 415 ml -430 ml Result Diagram: 03/03/17 1218 03/03/17 1218 Laboratory Results Laboratory Tests Test 03/03/17 03/03/17 05:09 12:18 White Blood Count 4.6 TH/MM3 5.5 TH/MM3 Red Blood Count 2.98 MIL/MM3 2.98 MIL/MM3 Hemoglobin 8.8 GM/DL 8.7 GM/DL Hematocrit 26.2 % 26.3 % Mean Corpuscular Volume 87.9 FL 88.2 FL Mean Corpuscular Hemoglobin 29.6 PG 29.1 PG Mean Corpuscular Hemoglobin 33.7 % 33.0 % Concent Red Cell Distribution Width 13.9 % 14.1 % Platelet Count 285 TH/MM3 300 TH/MM3 Mean Platelet Volume 7.7 FL 8.0 FL Neutrophils (%) (Auto) 56.7 % 61.8 % Lymphocytes (%) (Auto) 29.2 % 26.1 % Monocytes (%) (Auto) 10.7 % 8.9 % Eosinophils (%) (Auto) 2.7 % 2.6 % Basophils (%) (Auto) 0.7 % 0.6 % Neutrophils # (Auto) 2.6 TH/MM3 3.4 TH/MM3 Lymphocytes # (Auto) 1.4 TH/MM3 1.4 TH/MM3 Monocytes # (Auto) 0.5 TH/MM3 0.5 TH/MM3 Eosinophils # (Auto) 0.1 TH/MM3 0.1 TH/MM3 Basophils # (Auto) 0.0 TH/MM3 0.0 TH/MM3 CBC Comment DIFF FINAL DIFF FINAL Differential Comment Sodium Level 140 MEQ/L Potassium Level 4.6 MEQ/L Chloride Level 107 MEQ/L Carbon Dioxide Level 26.9 MEQ/L Anion Gap 6 MEQ/L Blood Urea Nitrogen 20 MG/DL Creatinine 1.56 MG/DL Estimat Glomerular Filtration 33 ML/MIN Rate Random Glucose 172 MG/DL Calcium Level 9.4 MG/DL Administered Medications Medications (Trade) Dose Ordered Sig/Marie Route PRN Reason Start Time Stop Time Status Last Admin Dose Admin Sodium Chloride (NS Flush) 2 ml BID IV FLUSH 02/25/17 21:00 03/03/17 09:05 Acetaminophen (Tylenol) 650 mg Q4H PRN PO TEMP > 100.4 02/25/17 15:30 03/03/17 09:02 Ondansetron HCl (Zofran Inj) 4 mg Q6H PRN IVP NAUSEA OR VOMITING 02/25/17 15:30 02/26/17 10:10 Magnesium Hydroxide (Milk Of Magnalonso Liq) 30 ml Q12H PRN PO CONSTIPATION 02/25/17 15:30 03/02/17 17:47 Aspirin (Aspirin Chew) 81 mg DAILY CHEW 02/26/17 09:00 03/03/17 09:02 Isosorbide Mononitrate (Imdur) 30 mg DAILY PO 02/26/17 09:00 03/03/17 09:01 Lisinopril (Prinivil) 20 mg DAILY PO 02/26/17 09:00 03/03/17 09:03 Metoprolol Tartrate (Lopressor) 50 mg BID PO 02/25/17 21:00 03/03/17 09:02 Prasugrel (Effient) 10 mg DAILY PO 02/26/17 09:00 03/03/17 09:01 Pravastatin Sodium (Pravachol) 40 mg DAILY PO 02/26/17 09:00 03/03/17 09:02 Spironolactone (Aldactone) 25 mg DAILY PO 02/26/17 09:00 03/03/17 09:02 Guaifenesin (Mucinex Er) 600 mg BID PO 02/26/17 21:00 03/03/17 09:03 Clonidine (Catapres) 0.1 mg Q6H PRN PO SBP>160, DBP>90 02/26/17 18:00 03/01/17 01:54 Heparin Sodium (Porcine) 5000 units 5,000 units Q8HR SQ 02/27/17 22:00 03/03/17 15:05 Piperacillin Sod/ Tazobactam Sod 50 ml @ 100 mls/hr Q6H IV 02/28/17 11:00 03/03/17 16:43 Iron Sucrose/ Sodium Chloride (Venofer Inj/NS Inj) 110 ml @ 110 mls/hr DAILY IV 03/02/17 09:00 03/04/17 09:59 03/03/17 09:55 Diphenhydramine HCl (Benadryl) 25 mg Q4H PRN PO PRE-MEDICATE FOR BLOOD PRODUCT 03/02/17 08:15 03/03/17 09:02 Insulin Detemir (Levemir Inj) 6 units Q12HR SQ 03/02/17 12:00 03/03/17 09:00 Amlodipine Besylate (Norvasc) 10 mg DAILY PO 03/02/17 14:00 03/03/17 09:01 Morphine Sulfate (Msir) 15 mg Q6H PRN PO PAIN SCALE 6 TO 10 03/03/17 12:00 03/03/17 15:48 Objective Remarks GENERAL: nad SKIN: Warm and dry. NECK: Supple, trachea midline. No JVD or lymphadenopathy. LYMPHATIC: No adenopathy. CARDIOVASCULAR: Regular rate and rhythm without murmurs. RESPIRATORY: Breath sounds equal bilaterally. No accessory muscle use. GASTROINTESTINAL: Abdomen soft, non-tender, nondistended. EXTREMITIES: No cyanosis, or edema. wound with dressing . Assessment/Plan Problem List: (1) Anemia, iron deficiency Status: Chronic Plan: 03/02: IV Venofer x 3 -- Acute on chronic anemia. acute component due to dog bite related blood loss. --due to iron deficiency as well as possible low grade myelodysplasia. 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 --bone marrow biopsy September 2016 --showed normocellular bone marrow with trilineage Hematopoiesis. +stainable iron noted at that time. (2) Dog bite of multiple sites of right lower extremity Status: Acute Plan: --on Zosyn --s/p debridement in OR --wound vac being managed by surgery/primary Assessment 66y/o with h/o chronic anemia and low-grade MDS admitted with dog bite. h/o Arthritis. Asthma, COPD, Coronary artery disease, Diabetes, Hypertension, Hiatal hernia Peripheral neuropathy Zinc deficiency. Plan Iron Deficiency anemia/also with acute blood loss--tolerating iron infusions. Will add 2 more treatments of iron May also benefit from HERNAN since had CKD. Will hold off until iron is depleted Likely has concomitant low grade MDS without increase in blast cells Problem Qualifiers (1) Dog bite of multiple sites of right lower extremity: Qualified Code: S81.851D - Dog bite of multiple sites of right lower extremity , subsequent encounter Mati Schmidt MD Mar 03, 2017 22:05
[2017-03-04] VITALS (7 sets, daily range): BP systolic 123–172; BP diastolic 60–74; PULSE 54–60; RESP 16–21; TEMP 96.9–98.2; O2SAT 95–98
[2017-03-04] MEDS: PIPERACIL-TAZO 3.375 GM PREMIX 50 ML IV SCH ×2 (04:27→11:27)
[2017-03-04 04:35] LABS: AUTOMATED NEUTROPHIL # 2.9 TH/MM3 (1.8-7.7); BASOPHIL % 0.7 % (0.0-2.0); EOSINOPHIL # 0.2 TH/MM3 (0-0.4); EOSINOPHIL % 3.1 % (0.0-4.0); HEMATOCRIT 26.4 % (35.0-46.0); HEMO FLAGS DIFF FINAL; LYMPH % 28.6 % (9.0-44.0); LYMPHOCYTE # 1.4 TH/MM3 (1.0-4.8); MEAN CELL VOLUME 87.9 FL (80.0-100.0); MEAN CORPUSCULAR HEMOGLOBIN 29.3 PG (27.0-34.0); MEAN CORPUSCULAR HGB CONC 33.4 % (32.0-36.0); MONO % 9.9 % (0.0-8.0); NEUT % 57.7 % (16.0-70.0); PLATELET COUNT 277 TH/MM3 (150-450); WHITE BLOOD COUNT 5.1 TH/MM3 (4.0-11.0)
[2017-03-04] MEDS: HEPARIN SODIUM - SQ 10,000 UNITS/ML VIAL SQ SCH ×3 (05:14→20:50)
[2017-03-04] MEDS: INSULIN ASPART SUPPLEMENTAL SCALE SQ SCH ×4 (06:15→20:53)
[2017-03-04] MEDS: diphenhydrAMINE HCL 25 MG CAP PO PRN (08:00)
[2017-03-04] MEDS: IRON SUCROSE INJ 200 MG in SODIUM CHLORIDE 0.9% INJ 100 ML IV SCH (08:36)
[2017-03-04] MEDS: SPIRONOLACTONE 25 MG TAB PO SCH (08:39)
[2017-03-04] MEDS: METOPROLOL TARTRATE 50 MG TAB PO SCH ×2 (08:39→08:49)
[2017-03-04] MEDS: PRASUGREL 10 MG TAB PO SCH (08:39)
[2017-03-04] MEDS: ASPIRIN 81 MG CHEW TAB CHEW SCH (08:39)
[2017-03-04] MEDS: PRAVASTATIN SOD 40 MG TAB PO SCH (08:39)
[2017-03-04] MEDS: ISOSORBIDE MONONITRATE 30 MG TAB PO SCH (08:39)
[2017-03-04] MEDS: LISINOPRIL 20 MG TAB PO SCH (08:39)
[2017-03-04] MEDS: guaiFENesin E.R. 600 MG TAB PO SCH ×2 (08:39→20:50)
[2017-03-04] MEDS: SODIUM CHLORIDE 0.9% FLUSH 10 ML FLUSH IV FLUSH SCH ×2 (08:40→20:54)
[2017-03-04] MEDS: INSULIN DETEMIR 100 UNITS/ML VIAL SQ SCH ×2 (08:40→20:53)
--- NOTE | 2017-03-04 15:48 | HHI.PR ---
Subjective Remarks Follow up leg wound, diabetes. The patient states that her pain is much better today. She feels that her leg wound is improving. Denies dyspnea, chest pain, nausea, vomiting. Objective Vitals Vital Signs Date Time Temp Pulse Resp B/P Pulse Ox O2 Delivery O2 Flow Rate FiO2 03/04/17 12:00 97.8 55 16 136/63 96 03/04/17 09:43 55 129/70 03/04/17 08:54 60 03/04/17 08:00 96.9 54 16 172/74 97 03/03/17 20:00 98.0 68 20 136/72 95 03/03/17 16:00 97.2 62 17 148/67 96 I/O 03/03/17 03/03/17 03/03/17 03/04/17 03/04/17 03/04/17 07:00 15:00 23:00 07:00 15:00 23:00 Intake Total 440 ml 920 ml 400 ml 627 ml 730 ml Output Total 25 ml 1350 ml 750 ml 600 ml 590 ml Balance 415 ml -430 ml -350 ml 27 ml 140 ml Intake Oral 240 ml 720 ml 400 ml 480 ml 580 ml IV Total 200 ml 200 ml 0 ml 147 ml 150 ml Output Urine Total 1300 ml 550 ml 600 ml 550 ml Drainage Total 25 ml 50 ml 200 ml 0 ml 40 ml # Voids 3 # Bowel Movements 0 1 Result Diagram: 03/04/17 0354 03/03/17 1218 Imaging Last Impressions Lower Extremity Ultrasound 02/25/17 1356 Signed Impressions: Service Date/Time: January 14:49 - CONCLUSION: No evidence of right lower extremity DVT. Dwain Estevez MD Objective Remarks General: No acute distress. Heart: Regular rate and rhythm. No murmur. Lungs: Clear to auscultation bilaterally. No wheezes, rales, or rhonchi. Breathing is nonlabored. Abdomen: Soft, nontender, nondistended. Extremities: No lower extremity edema. Right lower leg wound with VAC in place. Psych: Alert and oriented. Urinary Catheter: No Vascular Central Line Catheter: No A/P Problem List: (1) COPD (chronic obstructive pulmonary disease) ICD Code: J44.9 Status: Chronic (2) HTN (hypertension) ICD Code: I10 Status: Chronic (3) IDDM (insulin dependent diabetes mellitus) ICD Code: E11.9 Status: Chronic (4) Dog bite of multiple sites of right lower extremity ICD Code: S81.851A Status: Acute (5) Anemia, iron deficiency ICD Code: D50.9 Status: Chronic Assessment and Plan 1. Right lower extremity wound secondary to dog bite: Status post incision and drainage with wound VAC placement by general surgery. Appreciate plastic surgery recommendations. 2. Acute on chronic anemia: Appreciate hematology recommendations. Suspect low- grade myelodysplasia. Transfuse as needed. IV iron per hematology. 3. COPD: Not currently in exacerbation. Continue bronchodilators, incentive spirometry. 4. Diabetes mellitus, type 2: Poorly controlled. Continue Levemir. Monitor Accu- Cheks and cover with sliding scale insulin. 5. Coronary artery disease: Currently asymptomatic. 6. Peripheral neuropathy: Stable. 7. Hypertension: Continue current medications. 8. Constipation: Continue lactulose. 9. DVT prophylaxis: Heparin. Problem Qualifiers (1) Dog bite of multiple sites of right lower extremity: Qualified Code: S81.851D - Dog bite of multiple sites of right lower extremity , subsequent encounter Morro Harrison MD Mar 04, 2017 15:48
[2017-03-04] MEDS: PIPERACIL-TAZO 2.25 GM PREMIX 50 ML IV SCH ×2 (16:49→23:04)
[2017-03-04] MEDS: MORPHINE SULFATE 15 MG TAB PO PRN ×2 (16:49→23:04)
--- NOTE | 2017-03-04 23:02 | PD.ONC.PN ---
Subjective Subjective Remarks leg wound with dressing feels weak/anemia persists wants to go home soon no issues with IV iron d/w rn Objective Data Date Time Temp Pulse Resp B/P Pulse Ox O2 Delivery O2 Flow Rate FiO2 03/04/17 20:00 97.1 60 21 130/63 98 03/04/17 17:44 18 03/04/17 16:00 97.4 60 17 134/63 95 03/04/17 12:00 97.8 55 16 136/63 96 03/04/17 09:43 55 129/70 03/04/17 08:54 60 03/04/17 08:00 96.9 54 16 172/74 97 03/04/17 03/04/17 03/04/17 07:00 15:00 23:00 Intake Total 627 ml 730 ml Output Total 600 ml 590 ml Balance 27 ml 140 ml Result Diagram: 03/04/17 0354 03/03/17 1218 Laboratory Results Laboratory Tests Test 03/04/17 03:54 White Blood Count 5.1 TH/MM3 Red Blood Count 3.00 MIL/MM3 Hemoglobin 8.8 GM/DL Hematocrit 26.4 % Mean Corpuscular Volume 87.9 FL Mean Corpuscular Hemoglobin 29.3 PG Mean Corpuscular Hemoglobin 33.4 % Concent Red Cell Distribution Width 14.0 % Platelet Count 277 TH/MM3 Mean Platelet Volume 7.9 FL Neutrophils (%) (Auto) 57.7 % Lymphocytes (%) (Auto) 28.6 % Monocytes (%) (Auto) 9.9 % Eosinophils (%) (Auto) 3.1 % Basophils (%) (Auto) 0.7 % Neutrophils # (Auto) 2.9 TH/MM3 Lymphocytes # (Auto) 1.4 TH/MM3 Monocytes # (Auto) 0.5 TH/MM3 Eosinophils # (Auto) 0.2 TH/MM3 Basophils # (Auto) 0.0 TH/MM3 CBC Comment DIFF FINAL Differential Comment Administered Medications Medications (Trade) Dose Ordered Sig/Marie Route PRN Reason Start Time Stop Time Status Last Admin Dose Admin Sodium Chloride (NS Flush) 2 ml BID IV FLUSH 02/25/17 21:00 03/04/17 20:54 Acetaminophen (Tylenol) 650 mg Q4H PRN PO TEMP > 100.4 02/25/17 15:30 03/03/17 09:02 Ondansetron HCl (Zofran Inj) 4 mg Q6H PRN IVP NAUSEA OR VOMITING 02/25/17 15:30 02/26/17 10:10 Magnesium Hydroxide (Milk Of Magnalonso Liq) 30 ml Q12H PRN PO CONSTIPATION 02/25/17 15:30 03/02/17 17:47 Aspirin (Aspirin Chew) 81 mg DAILY CHEW 02/26/17 09:00 03/04/17 08:39 Isosorbide Mononitrate (Imdur) 30 mg DAILY PO 02/26/17 09:00 03/04/17 08:39 Lisinopril (Prinivil) 20 mg DAILY PO 02/26/17 09:00 03/04/17 08:39 Metoprolol Tartrate (Lopressor) 50 mg BID PO 02/25/17 21:00 03/03/17 22:43 Prasugrel (Effient) 10 mg DAILY PO 02/26/17 09:00 03/04/17 08:39 Pravastatin Sodium (Pravachol) 40 mg DAILY PO 02/26/17 09:00 03/04/17 08:39 Spironolactone (Aldactone) 25 mg DAILY PO 02/26/17 09:00 03/04/17 08:39 Guaifenesin (Mucinex Er) 600 mg BID PO 02/26/17 21:00 03/04/17 20:50 Clonidine (Catapres) 0.1 mg Q6H PRN PO SBP>160, DBP>90 02/26/17 18:00 03/01/17 01:54 Heparin Sodium (Porcine) (Heparin Inj) 5,000 units Q8HR SQ 02/27/17 22:00 03/04/17 20:50 Diphenhydramine HCl (Benadryl) 25 mg Q4H PRN PO PRE-MEDICATE FOR BLOOD PRODUCT 03/02/17 08:15 03/04/17 08:00 Insulin Detemir (Levemir Inj) 6 units Q12HR SQ 03/02/17 12:00 03/04/17 20:53 Amlodipine Besylate (Norvasc) 10 mg DAILY PO 03/02/17 14:00 03/04/17 08:39 Morphine Sulfate 15 mg 15 mg Q6H PRN PO PAIN SCALE 6 TO 10 03/03/17 12:00 03/04/17 16:49 Piperacillin Sod/ Tazobactam Sod (Zosyn 2.25 Gm Premix) 50 ml @ 100 mls/hr Q6HR IV 03/04/17 18:00 03/04/17 16:49 Objective Remarks GENERAL: nad SKIN: Warm and dry. LYMPHATIC: No adenopathy. CARDIOVASCULAR: Regular rate and rhythm without murmurs. RESPIRATORY: Breath sounds equal bilaterally. No accessory muscle use. GASTROINTESTINAL: Abdomen soft, non-tender, nondistended. EXTREMITIES: No cyanosis, or edema. leg wound Assessment/Plan Problem List: (1) Anemia, iron deficiency Status: Chronic Plan: 03/02: IV Venofer x 3 -- Acute on chronic anemia. acute component due to dog bite related blood loss. --due to iron deficiency as well as possible low grade myelodysplasia. 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 --bone marrow biopsy September 2016 --showed normocellular bone marrow with trilineage Hematopoiesis. +stainable iron noted at that time. (2) Dog bite of multiple sites of right lower extremity Status: Acute Plan: --on Zosyn --s/p debridement in OR --wound vac being managed by surgery/primary Assessment 66y/o with h/o chronic anemia and low-grade MDS admitted with dog bite. h/o Arthritis. Asthma, COPD, Coronary artery disease, Diabetes, Hypertension, Hiatal hernia Peripheral neuropathy Zinc deficiency. Plan Iron Deficiency anemia/also with acute blood loss/hx of CKD additional iron infusions X2 Darbepoetin once iron is repleted Suspicion for underlying MDS discussed with patient Problem Qualifiers (1) Dog bite of multiple sites of right lower extremity: Qualified Code: S81.851D - Dog bite of multiple sites of right lower extremity , subsequent encounter Mati Schmidt MD Mar 04, 2017 23:02
[2017-03-05] MEDS: HEPARIN SODIUM - SQ 10,000 UNITS/ML VIAL SQ SCH ×3 (05:20→20:20)
[2017-03-05] MEDS: PIPERACIL-TAZO 2.25 GM PREMIX 50 ML IV SCH ×4 (05:20→23:06)
[2017-03-05] MEDS: INSULIN ASPART SUPPLEMENTAL SCALE SQ SCH ×4 (05:26→20:34)
[2017-03-05] MEDS: MORPHINE SULFATE 15 MG TAB PO PRN ×3 (05:26→20:31)
[2017-03-05 08:00] VITALS: BP 148/67; PULSE 56; RESP 10; TEMP 97.1; O2SAT 97
[2017-03-05] MEDS: LISINOPRIL 20 MG TAB PO SCH (09:00)
[2017-03-05] MEDS: SPIRONOLACTONE 25 MG TAB PO SCH (09:00)
[2017-03-05] MEDS: ISOSORBIDE MONONITRATE 30 MG TAB PO SCH (09:00)
[2017-03-05] MEDS: IRON SUCROSE INJ 200 MG in SODIUM CHLORIDE 0.9% INJ 100 ML IV SCH (09:00)
[2017-03-05] MEDS: INSULIN DETEMIR 100 UNITS/ML VIAL SQ SCH ×2 (09:00→20:35)
[2017-03-05] MEDS: ASCORBIC ACID 500 MG TAB PO SCH (09:00)
[2017-03-05] MEDS: SODIUM CHLORIDE 0.9% FLUSH 10 ML FLUSH IV FLUSH SCH ×2 (09:00→20:32)
[2017-03-05] MEDS: METOPROLOL TARTRATE 50 MG TAB PO SCH ×2 (09:00→20:19)
[2017-03-05] MEDS: PRASUGREL 10 MG TAB PO SCH (09:01)
[2017-03-05] MEDS: guaiFENesin E.R. 600 MG TAB PO SCH ×2 (09:01→20:19)
[2017-03-05] MEDS: PRAVASTATIN SOD 40 MG TAB PO SCH (09:01)
[2017-03-05] MEDS: FOLIC ACID 1 MG TAB PO SCH (09:01)
[2017-03-05] MEDS: ASPIRIN 81 MG CHEW TAB CHEW SCH (09:01)
[2017-03-05 12:00] VITALS: BP 170/74; PULSE 59; RESP 12; TEMP 96.5; O2SAT 97
--- NOTE | 2017-03-05 13:24 | PD.PLAS.PN ---
Subjective Remarks Patient is status post debridement of wound of right leg with placement of wound vac. Objective Vital Signs Date Time Temp Pulse Resp B/P Pulse Ox O2 Delivery O2 Flow Rate FiO2 03/05/17 12:00 96.5 59 12 170/74 97 03/05/17 08:00 97.1 56 10 148/67 97 03/05/17 06:26 20 03/04/17 23:58 98.2 60 20 123/60 97 03/04/17 20:00 97.1 60 21 130/63 98 03/04/17 16:00 97.4 60 17 134/63 95 I/O 03/04/17 03/04/17 03/04/17 03/05/17 03/05/17 03/05/17 06:59 14:59 22:59 06:59 14:59 22:59 Intake Total 627 ml 730 ml 290 ml 110 ml Output Total 600 ml 590 ml 300 ml 550 ml Balance 27 ml 140 ml -10 ml -440 ml Intake Oral 480 ml 580 ml 240 ml 60 ml IV Total 147 ml 150 ml 50 ml 50 ml Output Urine Total 600 ml 550 ml 300 ml 500 ml Drainage Total 0 ml 40 ml 50 ml # Voids 1 # Bowel Movements 1 0 0 Result Diagram: 03/04/17 0354 03/03/17 1218 Exam Findings Vac dressing is removed for exam. Wound is healing well. Wound bed is predominantly red granulation tissue. There area few areas of fibrin around the edges. There is no odor. Periwound skin is without cellulitis. Assessment and Plan Diagnosis: (1) Dog bite of multiple sites of right lower extremity Assessment and Plan Patient is discussed the RN and Dr. Moore. The recommendation is for the patient to continue with vac therapy. We will continue to monitor. If discharged, she may follow up in the wound care center and skin graft can be planned for a later date as an outpatient. She does not need to be kept inpatient from a plastic surgery standpoint. Discharge Planning Cleared for discharge from plastic surgery standpoint. Continue with wound vac and follow up in the wound care center. Lucero Stevens Mar 05, 2017 13:24
[2017-03-05] MEDS: ONDANSETRON HCL 4 MG/2 ML VIAL IVP PRN ×2 (14:26→20:25)
--- NOTE | 2017-03-05 14:40 | HHI.PR ---
Subjective Remarks Follow up leg wound, diabetes. The patient states that her pain is well controlled. She has no specific complaints at this time. Hopes to go home soon. Objective Vitals Vital Signs Date Time Temp Pulse Resp B/P Pulse Ox O2 Delivery O2 Flow Rate FiO2 03/05/17 12:00 96.5 59 12 170/74 97 03/05/17 08:00 97.1 56 10 148/67 97 03/05/17 06:26 20 03/04/17 23:58 98.2 60 20 123/60 97 03/04/17 20:00 97.1 60 21 130/63 98 03/04/17 16:00 97.4 60 17 134/63 95 I/O 03/04/17 03/04/17 03/04/17 03/05/17 03/05/17 03/05/17 07:00 15:00 23:00 07:00 15:00 23:00 Intake Total 627 ml 730 ml 290 ml 110 ml Output Total 600 ml 590 ml 300 ml 550 ml Balance 27 ml 140 ml -10 ml -440 ml Intake Oral 480 ml 580 ml 240 ml 60 ml IV Total 147 ml 150 ml 50 ml 50 ml Output Urine Total 600 ml 550 ml 300 ml 500 ml Drainage Total 0 ml 40 ml 50 ml # Voids 1 # Bowel Movements 1 0 0 Result Diagram: 03/04/17 0354 03/03/17 1218 Imaging Last Impressions Lower Extremity Ultrasound 02/25/17 1356 Signed Impressions: Service Date/Time: January 14:49 - CONCLUSION: No evidence of right lower extremity DVT. Dwain Estevez MD Objective Remarks General: No acute distress. Heart: Regular rate and rhythm. No murmur. Lungs: Clear to auscultation bilaterally. No wheezes, rales, or rhonchi. Breathing is nonlabored. Abdomen: Soft, nontender, nondistended. Extremities: No lower extremity edema. Right lower leg wound with VAC in place. Psych: Alert and oriented. Urinary Catheter: No Vascular Central Line Catheter: No A/P Problem List: (1) Dog bite of multiple sites of right lower extremity ICD Code: S81.851A Status: Acute (2) Anemia, iron deficiency ICD Code: D50.9 Status: Chronic (3) COPD (chronic obstructive pulmonary disease) ICD Code: J44.9 Status: Chronic (4) HTN (hypertension) ICD Code: I10 Status: Chronic (5) IDDM (insulin dependent diabetes mellitus) ICD Code: E11.9 Status: Chronic Assessment and Plan 1. Right lower extremity wound secondary to dog bite: Status post incision and drainage with wound VAC placement by general surgery. Appreciate plastic surgery recommendations. Cleared for discharge by plastic surgery with instructions for follow-up in the wound care clinic. 2. Acute on chronic anemia: Appreciate hematology recommendations. Suspect low- grade myelodysplasia. Transfuse as needed. IV iron per hematology. 3. COPD: Not currently in exacerbation. Continue bronchodilators, incentive spirometry. 4. Diabetes mellitus, type 2: Poorly controlled. Continue Levemir. Monitor Accu- Cheks and cover with sliding scale insulin. 5. Coronary artery disease: Currently asymptomatic. 6. Peripheral neuropathy: Stable. 7. Hypertension: Continue current medications. 8. Constipation: Continue lactulose. 9. DVT prophylaxis: Heparin. Discharge Planning Cleared for discharge by plastic surgery. Plan for discharge home with outpatient follow-up at the wound care clinic once cleared by hematology. Problem Qualifiers (1) Dog bite of multiple sites of right lower extremity: Qualified Code: S81.851D - Dog bite of multiple sites of right lower extremity , subsequent encounter Morro Harrison MD Mar 05, 2017 14:40
[2017-03-05 16:00] VITALS: BP 150/67; PULSE 62; RESP 12; TEMP 96.9; O2SAT 97
[2017-03-05 20:00] VITALS: BP 196/81; PULSE 61; RESP 20; TEMP 96.8; O2SAT 100
--- NOTE | 2017-03-05 22:29 | PD.ONC.PN ---
Subjective Subjective Remarks doing better wound vac in place no significant bleeding wants to go home Objective Data Date Time Temp Pulse Resp B/P Pulse Ox O2 Delivery O2 Flow Rate FiO2 03/05/17 20:00 96.8 61 20 196/81 100 03/05/17 16:00 96.9 62 12 150/67 97 03/05/17 12:00 96.5 59 12 170/74 97 03/05/17 08:00 97.1 56 10 148/67 97 03/05/17 06:26 20 03/04/17 23:58 98.2 60 20 123/60 97 03/05/17 03/05/17 03/05/17 07:00 15:00 23:00 Intake Total 110 ml 720 ml 60 ml Output Total 550 ml 700 ml 600 ml Balance -440 ml 20 ml -540 ml Result Diagram: 03/04/17 0354 03/03/17 1218 Administered Medications Medications (Trade) Dose Ordered Sig/Marie Route PRN Reason Start Time Stop Time Status Last Admin Dose Admin Sodium Chloride (NS Flush) 2 ml BID IV FLUSH 02/25/17 21:00 03/05/17 20:32 Acetaminophen (Tylenol) 650 mg Q4H PRN PO TEMP > 100.4 02/25/17 15:30 03/03/17 09:02 Ondansetron HCl (Zofran Inj) 4 mg Q6H PRN IVP NAUSEA OR VOMITING 02/25/17 15:30 03/05/17 20:25 Magnesium Hydroxide (Milk Of Magnesia Liq) 30 ml Q12H PRN PO CONSTIPATION 02/25/17 15:30 03/02/17 17:47 Aspirin (Aspirin Chew) 81 mg DAILY CHEW 02/26/17 09:00 03/05/17 09:01 Isosorbide Mononitrate (Imdur) 30 mg DAILY PO 02/26/17 09:00 03/05/17 09:00 Lisinopril (Prinivil) 20 mg DAILY PO 02/26/17 09:00 03/05/17 09:00 Metoprolol Tartrate (Lopressor) 50 mg BID PO 02/25/17 21:00 03/05/17 20:19 Prasugrel (Effient) 10 mg DAILY PO 02/26/17 09:00 03/05/17 09:01 Pravastatin Sodium (Pravachol) 40 mg DAILY PO 02/26/17 09:00 03/05/17 09:01 Spironolactone (Aldactone) 25 mg DAILY PO 02/26/17 09:00 03/05/17 09:00 Guaifenesin (Mucinex Er) 600 mg BID PO 02/26/17 21:00 03/05/17 20:19 Clonidine (Catapres) 0.1 mg Q6H PRN PO SBP>160, DBP>90 02/26/17 18:00 03/01/17 01:54 Heparin Sodium (Porcine) (Heparin Inj) 5,000 units Q8HR SQ 02/27/17 22:00 03/05/17 20:20 Diphenhydramine HCl (Benadryl) 25 mg Q4H PRN PO PRE-MEDICATE FOR BLOOD PRODUCT 03/02/17 08:15 03/04/17 08:00 Insulin Detemir (Levemir Inj) 6 units Q12HR SQ 03/02/17 12:00 03/05/17 20:35 Amlodipine Besylate (Norvasc) 10 mg DAILY PO 03/02/17 14:00 03/05/17 09:00 Morphine Sulfate (Morphine Inj) 2 mg Q6HR PRN IV PUSH BREAKTHROUGH PAIN 03/03/17 12:00 03/05/17 13:03 Morphine Sulfate 15 mg 15 mg Q6H PRN PO PAIN SCALE 6 TO 10 03/03/17 12:00 03/05/17 20:31 Piperacillin Sod/ Tazobactam Sod 50 ml @ 100 mls/hr Q6HR IV 03/04/17 18:00 03/05/17 20:32 Iron Sucrose/ Sodium Chloride (Venofer Inj/NS Inj) 110 ml @ 110 mls/hr DAILY IV 03/05/17 09:00 03/07/17 09:59 03/05/17 09:00 Folic Acid (Folate) 1 mg DAILY PO 03/05/17 09:00 03/05/17 09:01 Ascorbic Acid (Vitamin C) 500 mg DAILY PO 03/05/17 09:00 03/05/17 09:00 Objective Remarks GENERAL: nad SKIN: Warm and dry. NECK: Supple, trachea midline. No JVD or lymphadenopathy. LYMPHATIC: No adenopathy. CARDIOVASCULAR: Regular rate and rhythm without murmurs. RESPIRATORY: Breath sounds equal bilaterally. No accessory muscle use. GASTROINTESTINAL: Abdomen soft, non-tender, nondistended. EXTREMITIES: No cyanosis, or edema. leg wound with wound vac Assessment/Plan Problem List: (1) Anemia, iron deficiency Status: Chronic Plan: 03/02: IV Venofer x 3 -- Acute on chronic anemia. acute component due to dog bite related blood loss. --due to iron deficiency as well as possible low grade myelodysplasia. 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 --bone marrow biopsy September 2016 --showed normocellular bone marrow with trilineage Hematopoiesis. +stainable iron noted at that time. (2) Dog bite of multiple sites of right lower extremity Status: Acute Plan: --on Zosyn --s/p debridement in OR --wound vac being managed by surgery/primary Assessment 66y/o with h/o chronic anemia and low-grade MDS admitted with dog bite. h/o Arthritis. Asthma, COPD, Coronary artery disease, Diabetes, Hypertension, Hiatal hernia Peripheral neuropathy Zinc deficiency. Plan Iron Deficiency anemia/also with acute blood loss/hx of CKD additional iron infusions X2 Darbepoetin once iron is repleted Suspicion for underlying MDS tolerating iron infusions. Hb stable Ok to d/c home from hematology perspective f/u in clinic in 2-3 weeks Problem Qualifiers (1) Dog bite of multiple sites of right lower extremity: Qualified Code: S81.851D - Dog bite of multiple sites of right lower extremity , subsequent encounter Mati Schmidt MD Mar 05, 2017 22:29
[2017-03-06] VITALS: BP 166/72; PULSE 60; RESP 20; TEMP 96.8; O2SAT 99
[2017-03-06] MEDS: PIPERACIL-TAZO 2.25 GM PREMIX 50 ML IV SCH ×3 (04:30→17:40)
[2017-03-06] MEDS: INSULIN ASPART SUPPLEMENTAL SCALE SQ SCH ×4 (04:31→21:23)
[2017-03-06] MEDS: HEPARIN SODIUM - SQ 10,000 UNITS/ML VIAL SQ SCH ×3 (04:31→21:21)
[2017-03-06 08:00] VITALS: BP 174/74; PULSE 56; RESP 16; TEMP 96.9; O2SAT 97
[2017-03-06] MEDS: PRASUGREL 10 MG TAB PO SCH (08:26)
[2017-03-06] MEDS: INSULIN DETEMIR 100 UNITS/ML VIAL SQ SCH ×2 (08:26→21:22)
[2017-03-06] MEDS: ISOSORBIDE MONONITRATE 30 MG TAB PO SCH (08:26)
[2017-03-06] MEDS: FOLIC ACID 1 MG TAB PO SCH (08:27)
[2017-03-06] MEDS: LISINOPRIL 20 MG TAB PO SCH (08:27)
[2017-03-06] MEDS: ASPIRIN 81 MG CHEW TAB CHEW SCH (08:27)
[2017-03-06] MEDS: PRAVASTATIN SOD 40 MG TAB PO SCH (08:27)
[2017-03-06] MEDS: SPIRONOLACTONE 25 MG TAB PO SCH (08:27)
[2017-03-06] MEDS: ASCORBIC ACID 500 MG TAB PO SCH (08:27)
[2017-03-06] MEDS: guaiFENesin E.R. 600 MG TAB PO SCH ×2 (08:27→21:20)
[2017-03-06] MEDS: SODIUM CHLORIDE 0.9% FLUSH 10 ML FLUSH IV FLUSH SCH ×2 (08:27→21:20)
[2017-03-06] MEDS: METOPROLOL TARTRATE 50 MG TAB PO SCH ×2 (08:27→21:20)
[2017-03-06] MEDS: IRON SUCROSE INJ 200 MG in SODIUM CHLORIDE 0.9% INJ 100 ML IV SCH (08:32)
[2017-03-06] MEDS: ONDANSETRON HCL 4 MG/2 ML VIAL IVP PRN ×2 (10:02→18:38)
--- NOTE | 2017-03-06 11:44 | HHI.PR ---
Subjective Remarks Follow up leg wound, iron deficiency anemia. Patient had nausea this morning. Improved with Zofran. Pain is well controlled. Objective Vitals Vital Signs Date Time Temp Pulse Resp B/P Pulse Ox O2 Delivery O2 Flow Rate FiO2 03/06/17 08:00 96.9 56 16 174/74 97 03/06/17 00:00 96.8 60 20 166/72 99 03/05/17 21:31 20 03/05/17 20:00 96.8 61 20 196/81 100 03/05/17 16:00 96.9 62 12 150/67 97 03/05/17 12:00 96.5 59 12 170/74 97 I/O 03/05/17 03/05/17 03/05/17 03/06/17 03/06/17 03/06/17 07:00 15:00 23:00 07:00 15:00 23:00 Intake Total 110 ml 720 ml 60 ml 240 ml 100 ml Output Total 550 ml 700 ml 600 ml 150 ml Balance -440 ml 20 ml -540 ml 240 ml -50 ml Intake Oral 60 ml 720 ml 60 ml 240 ml IV Total 50 ml 100 ml Output Urine Total 500 ml 700 ml 500 ml Emesis 150 ml Drainage Total 50 ml 100 ml # Voids 1 3 # Bowel Movements 0 0 0 0 Result Diagram: 03/04/17 0354 03/03/17 1218 Imaging Last Impressions Lower Extremity Ultrasound 02/25/17 1356 Signed Impressions: Service Date/Time: January 14:49 - CONCLUSION: No evidence of right lower extremity DVT. Dwain Estevez MD Objective Remarks General: No acute distress. Heart: Regular rate and rhythm. No murmur. Lungs: Clear to auscultation bilaterally. No wheezes, rales, or rhonchi. Breathing is nonlabored. Abdomen: Soft, nontender, nondistended. Extremities: No lower extremity edema. Right lower leg wound with VAC in place. Psych: Alert and oriented. Procedures 02/26/17 Debridement of skin and subcutaneous tissue, wound vac placement Urinary Catheter: No Vascular Central Line Catheter: No A/P Problem List: (1) Dog bite of multiple sites of right lower extremity ICD Code: S81.851A Status: Acute (2) Anemia, iron deficiency ICD Code: D50.9 Status: Chronic (3) COPD (chronic obstructive pulmonary disease) ICD Code: J44.9 Status: Chronic (4) HTN (hypertension) ICD Code: I10 Status: Chronic (5) IDDM (insulin dependent diabetes mellitus) ICD Code: E11.9 Status: Chronic Assessment and Plan 1. Right lower extremity wound secondary to dog bite: Status post incision and drainage with wound VAC placement by general surgery. Appreciate plastic surgery recommendations. Cleared for discharge by plastic surgery with instructions for follow-up in the wound care clinic. 2. Acute on chronic anemia: Appreciate hematology recommendations. Suspect low- grade myelodysplasia. Transfuse as needed. IV iron per hematology (day 2 of 3). 3. COPD: Not currently in exacerbation. Continue bronchodilators, incentive spirometry. 4. Diabetes mellitus, type 2: Poorly controlled. Continue Levemir. Monitor Accu- Cheks and cover with sliding scale insulin. 5. Coronary artery disease: Currently asymptomatic. 6. Peripheral neuropathy: Stable. 7. Hypertension: Continue current medications. 8. Constipation: Continue lactulose. 9. DVT prophylaxis: Heparin. 10. Nausea: Continue Zofran. Discharge Planning Cleared for discharge by plastic surgery. Plan for discharge home with outpatient follow-up at the wound care clinic tomorrow after patient completes 3 day course of IV iron. Problem Qualifiers (1) Dog bite of multiple sites of right lower extremity: Qualified Code: S81.851D - Dog bite of multiple sites of right lower extremity , subsequent encounter Morro Harrison MD Mar 06, 2017 11:44
[2017-03-06 12:00] VITALS: BP 101/53; PULSE 60; RESP 16; TEMP 97.6; O2SAT 98
[2017-03-06 16:00] VITALS: BP 137/63; PULSE 60; RESP 16; TEMP 97.7; O2SAT 97
[2017-03-06 20:00] VITALS: BP 144/63; PULSE 63; RESP 18; TEMP 97.1; O2SAT 95
[2017-03-07] VITALS: BP 108/53; PULSE 59; RESP 18; TEMP 97.8; O2SAT 96
[2017-03-07] MEDS: PIPERACIL-TAZO 2.25 GM PREMIX 50 ML IV SCH ×3 (00:33→11:31)
[2017-03-07] MEDS: HEPARIN SODIUM - SQ 10,000 UNITS/ML VIAL SQ SCH (05:47)
[2017-03-07] MEDS: INSULIN ASPART SUPPLEMENTAL SCALE SQ SCH ×2 (05:51→11:00)
[2017-03-07 08:00] VITALS: BP 144/67; PULSE 57; RESP 16; TEMP 96.3; O2SAT 98
[2017-03-07] MEDS: INSULIN DETEMIR 100 UNITS/ML VIAL SQ SCH (08:52)
[2017-03-07] MEDS: ASCORBIC ACID 500 MG TAB PO SCH (08:52)
[2017-03-07] MEDS: PRAVASTATIN SOD 40 MG TAB PO SCH (08:52)
[2017-03-07] MEDS: FOLIC ACID 1 MG TAB PO SCH (08:52)
[2017-03-07] MEDS: LISINOPRIL 20 MG TAB PO SCH (08:52)
[2017-03-07] MEDS: SPIRONOLACTONE 25 MG TAB PO SCH (08:52)
[2017-03-07] MEDS: guaiFENesin E.R. 600 MG TAB PO SCH (08:52)
[2017-03-07] MEDS: METOPROLOL TARTRATE 50 MG TAB PO SCH (08:52)
[2017-03-07] MEDS: ISOSORBIDE MONONITRATE 30 MG TAB PO SCH (08:52)
[2017-03-07] MEDS: ASPIRIN 81 MG CHEW TAB CHEW SCH (08:52)
[2017-03-07] MEDS: PRASUGREL 10 MG TAB PO SCH (08:52)
[2017-03-07] MEDS: IRON SUCROSE INJ 200 MG in SODIUM CHLORIDE 0.9% INJ 100 ML IV SCH (08:52)
[2017-03-07] MEDS: SODIUM CHLORIDE 0.9% FLUSH 10 ML FLUSH IV FLUSH SCH (08:52)
[2017-03-07] MEDS ORDERED: AMLO10 PO (09:05)
[2017-03-07] MEDS ORDERED: LEVEMIR SQ (09:05)
--- NOTE | 2017-03-07 09:06 | HHI.DCPOC ---
Discharge Care Plan Diagnosis: (1) Dog bite of multiple sites of right lower extremity (2) IDDM (insulin dependent diabetes mellitus) (3) Anemia, iron deficiency Goals to Promote Your Health * To prevent worsening of your condition and complications * To maintain your health at the optimal level Directions to Meet Your Goals Take your medications as prescribed Follow your dietary instruction Follow activity as directed Keep your appointments as scheduled Take your immunizations and boosters as scheduled If your symptoms worsen call your PCP, if no PCP go to Urgent Care Center or Emergency Room Smoking is Dangerous to Your Health. Avoid second hand smoke Call the 24-hour hour crisis hotline for domestic abuse at Morro Harrison MD Mar 07, 2017 09:06
--- NOTE | 2017-03-07 09:11 | HHI.FF ---
Face to Face Verification Diagnosis: (1) Dog bite of multiple sites of right lower extremity (2) IDDM (insulin dependent diabetes mellitus) (3) Anemia, iron deficiency (4) HTN (hypertension) (5) COPD (chronic obstructive pulmonary disease) Home Health Nursing Order: Wound care and dressing changes Nursing assessment with vital signs I have seen patient Brinda Maynard on 03/07/17. My clinical findings support the need for the requested home health care services because: Infection w/ risk of complications I certify that my clinical findings support that this patient is homebound because: Hx COPD- exertion dyspnea/weakness Morro Harrison MD Mar 07, 2017 09:11
[2017-03-07] MEDS ORDERED: LEVO500T3 PO (09:13)
[2017-03-07] MEDS ORDERED: HYDR-3516 PO (09:27)
--- NOTE | 2017-03-07 09:31 | HHI.DS ---
cc: Ilsa Treviño DIRECTOR STRATEGIC ACCOUNT MANAGEMENT Discharge Summary Admission Date Feb 25, 2017 at 15:31 Discharge Date: Mar 07, 2017 Admitting Diagnosis necrotic wound RLE (1) Dog bite of multiple sites of right lower extremity ICD Code: S81.851A (2) Anemia, iron deficiency ICD Code: D50.9 (3) COPD (chronic obstructive pulmonary disease) ICD Code: J44.9 (4) HTN (hypertension) ICD Code: I10 (5) IDDM (insulin dependent diabetes mellitus) ICD Code: E11.9 Procedures 02/26/17 Debridement of skin and subcutaneous tissue, wound vac placement Brief History - From Admission This is a pleasant 66 y/o Female who came to to ER with Right lower extremity necrotic lesion, she was initially seen on 02/09/17 in ER with an extensive dog bite, given Unasyn 3 grams IV, wound was treated and discharged on Augmentin, she completed the antibiotic, re evaluated in ER on 02/17/17, then came two days ago for stitches removal the wound did not look infected at that time, but came again with pain and swelling on her lower extremity. The patient now presents with an angry-appearing right lower extremity along with some pain and swelling. as we know she has Anemia, OA, Asthma, DM I, CAD, Hiatal hernia, Hypertension, Neuropathy. Seen in her bedroom in the presence of nurse Naty sterling, awaiting for I and D and Vacuum later today CBC/BMP: 03/04/17 0354 03/03/17 1218 Imaging Last Impressions Lower Extremity Ultrasound 02/25/17 1356 Signed Impressions: Service Date/Time: January 14:49 - CONCLUSION: No evidence of right lower extremity DVT. Dwain Estevez MD PE at Discharge General: No acute distress. Heart: Regular rate and rhythm. No murmur. Lungs: Clear to auscultation bilaterally. No wheezes, rales, or rhonchi. Breathing is nonlabored. Abdomen: Soft, nontender, nondistended. Extremities: No lower extremity edema. Right lower leg wound with VAC in place. Psych: Alert and oriented. Pt update on day of discharge Patient has no complaints today. She would like to go home. Pain is well controlled. Nausea has resolved. Hospital Course The patient was admitted for management of right lower leg wound secondary to dog bite. Gen. surgery was consulted. Incision and drainage was done and wound VAC was placed. Plastic surgery was consulted for consideration of skin grafting. Hematology was consulted for acute on chronic anemia. She received transfusion of 1 unit PRBCs. She continued to have anemia and hematology ordered iron infusion. Wound cultures were followed. Antibiotics were adjusted. Patient showed significant improvement in the wound. She was cleared for discharge by plastic surgery with instructions to follow-up in the wound care clinic. Home health arrangements were made. Patient was advised to return to the hospital if she noted any increased redness around the wound or fever/ chills. Pt Condition on Discharge: Stable Discharge Disposition: Disch w/ Home Health Serv Discharge Time: > 30 minutes Discharge Instructions DIET: Follow Instructions for: Diabetic Diet Activities you can perform: Regular-No Restrictions Follow up Referrals: Oncology - [address] Mati Schmidt PCP Follow-up - 1 Week Plastic Surgery - 2 Weeks with Maeve Moore MD Wound Care Clinic - Next Day New Medications: Hydrocodone-Acetaminophen (Hydrocodone-Acetaminophen) 5-325 mg Tab 1 TAB PO Q6H PRN PAIN #10 Ref 0 TAB Levofloxacin (Levofloxacin) 500 Mg Tab 500 MG PO DAILY Infection #7 Ref 0 TAB Amlodipine (Norvasc) 10 Mg Tab 10 MG PO DAILY Blood Pressure Management #30 Ref 0 TAB Insulin Detemir Inj (Levemir Inj) 1,000 unit/ 10 ML Vial 6 UNITS SQ DAILY Blood Sugar Management #30 Ref 0 INJECTION Continued Medications: Aspirin (Aspirin) 81 Mg Chew 81 MG CHEW DAILY Ref 0 TAB Cyanocobalamin (B-12) 2,500 Mcg Subl 2500 MCG PO DAILY Nutritional Supplement Ref 0 TAB.SL Folic Acid (Folic Acid) 800 Mcg Tab 1600 MCG PO DAILY Nutritional Supplement Ref 0 TAB Insulin Aspart Inj (Novolog Inj) 1,000 Unit/10 Ml Vial Unknown Dose SQ ACHS Sliding Scale as directed. Blood Sugar Management #10 Ref 0 ML Isosorbide Mononitrate ER (Isosorbide Mononitrate ER) 30 Mg Abbey 30 MG PO DAILY Prevent Chest Pain #30 Ref 0 TAB Lisinopril (Lisinopril) 20 Mg Tab 20 MG PO DAILY #30 Ref 0 TAB Metoprolol Tartrate (Metoprolol Tartrate) 50 Mg Tab 50 MG PO BID #60 Ref 0 TAB Nitroglycerin SL (Nitroglycerin SL) 0.4 Mg Subl 0.4 MG SL DIRECTED ONE TABLET UNDER THE TONGUE NEEDED FOR CHEST PAIN, MAY REPEAT EVERY FIVE MINUTES FOR A TOTAL OF 3 DOSES OR CALL 911 IF NO RELIEF PRN CHEST PAIN #100 Ref 0 TAB.SL Prasugrel (Effient) 10 Mg Tab 10 MG PO DAILY Blood Clot Prevention #30 Ref 0 TAB Pravastatin (Pravastatin) 40 Mg Tab 40 MG PO DAILY Cholesterol Management #30 Ref 0 TAB Ranitidine (Ranitidine) 150 Mg Cap 150 MG PO DAILY PRN REFLUX #30 Ref 0 CAP Sennosides-Docusate Sodium (Jocelyn-Colace) 8.6-50 Mg Tab 2 TAB PO DAILY Constipation #60 Ref 0 TAB Spironolactone (Spironolactone) 25 Mg Tab 25 MG PO DAILY #30 Ref 0 TAB Zinc Gluconate (Zinc) 50 Mg Tab 50 MG PO DAILY Discontinued Medications: Ferrous Sulfate (Ferrous Sulfate) 325 Mg Tab 325 MG PO TID Nutritional Supplement #30 Ref 0 TAB Insulin Detemir Inj (Levemir Inj) 1,000 unit/ 10 ML Vial 16 UNITS SQ BID Blood Sugar Management #60 INJECTION Morro Harrison MD Mar 07, 2017 09:31
[2017-03-07 12:00] VITALS: BP 177/77; PULSE 63; RESP 17; TEMP 97.5; O2SAT 96
[2017-03-07] MEDS: ONDANSETRON HCL 4 MG/2 ML VIAL IVP PRN (13:12)
== END 2017-03-07 13:45 | disposition home health service (06) | DRG 571 ==
LOC: PHED 13:08 → PHEDA 15:31 → N07B 18:29
PROVIDERS: ADMIT Family Medicine; ATTEND Family Medicine
PROC: 30253N1 (ICD-10-PCS; 2017-02-25)
PROC: 0JBN0ZZ Excision of Right Lower Leg Subcutaneous Tissue and Fascia, Open Approach (ICD-10-PCS; principal; 2017-03-03)
DX: S81.801A Unspecified open wound, right lower leg, initial encounter (principal); I13.0 Hypertensive heart and chronic kidney disease with heart failure and stage 1 through stage 4 chronic kidney disease, or unspecified chronic kidney disease; E10.22 Type 1 diabetes mellitus with diabetic chronic kidney disease; I50.9 Heart failure, unspecified; E60 Dietary zinc deficiency; D75.89 Other specified diseases of blood and blood-forming organs; W54.0XXA Bitten by dog, initial encounter; Y92.9 Unspecified place or not applicable; N18.9 Chronic kidney disease, unspecified; D50.9 Iron deficiency anemia, unspecified; G62.9 Polyneuropathy, unspecified; I25.10 Atherosclerotic heart disease of native coronary artery without angina pectoris; I25.2 Old myocardial infarction; J44.9 Chronic obstructive pulmonary disease, unspecified; J45.909 Unspecified asthma, uncomplicated; K44.9 Diaphragmatic hernia without obstruction or gangrene; K59.00 Constipation, unspecified; Z79.01 Long term (current) use of anticoagulants; Z79.4 Long term (current) use of insulin; Z87.891 Personal history of nicotine dependence; Z95.5 Presence of coronary angioplasty implant and graft
CPT/HCPCS: 36430; 80048; 82607; 82728; 82746; 82948; 83540; 83550; 85014; 85018; 85025; 86850; 86900; 86901; 86920; 87015; 87040; 87070; 87077; 87102; 87116; 87186; 87205; 87206; 93971; 94150; 94640; 94664; 96374; 96375; J0131; J0295; J0690; J1644; J1756; J1815; J2250; J2270; J2405; J2543; J3010; J7050; J7120; P9016

== ENCOUNTER 2017-03-11 08:55 | Inpatient (IN) | payer MEDICARE, BC ==
[~2017-03-11] VITALS: Ht 162.6 cm; Wt 88.6 kg
[2017-03-11] VITALS (17 sets, daily range): BP systolic 98–155; BP diastolic 53–77; PULSE 72–174; RESP 25–38; TEMP 91.2–98.4; O2SAT 94–100
[~2017-03-11 08:55] MED LIST changes: -ACET-703 PO; +AMLO10 PO; -BACT800T5 PO; -FERR325T PO; +HYDR-3516 PO; +LEVO500T3 PO; -MUPI2%T TOPICAL; -PNEU13P IM; -PRED10PA2 PO
--- NOTE | 2017-03-11 08:59 | PD ---
HPI Chief Complaint: respiratory distress, hyperglycemia Time Seen by Provider: 08:59 Travel History International Travel<30 days: No Contact w/Intl Traveler<30days: No Traveled to known affect area: No History of Present Illness HPI 66-year-old female was brought to the ER by EMS since she was sick since last night. She was brought in as a respiratory distress. Patient has history of diabetes. She was breathing fast and oxygen saturation was 100%. EMS checked her blood sugar and it was eating more than 500. She is otherwise awake and answering questions. She looks sick. No family member is here with her currently. History is mostly obtained from the paramedics since patient is in distress. Her heart rate was in 130s. Blood pressure was stable. Patient had a dog bite to the right lower extremity which had surgical procedure done probably debridement and has a wound VAC attached to it [facility] Past Medical History Narrative Medical List of her past medical, surgical, social and family history was reviewed from the nursing note. Hx Anticoagulant Therapy: Yes Anemia: Yes (iron deficiency) Arthritis: Yes Asthma: Yes Heart Rhythm Problems: No Cancer: No Cardiovascular Problems: Yes (htn on med, Hx MS with stents) High Cholesterol: No Chest Pain: Yes Congestive Heart Failure: Yes COPD: Yes Cerebrovascular Accident: No Coronary Artery Disease: Yes Diabetes: Yes (type 1) Diminished Hearing: No Endocrine: No Gastrointestinal Disorders: No GERD: No Genitourinary: No Headaches: No Hepatitis: No Hiatal Hernia: Yes Hypertension: Yes Immune Disorder: No Implanted Vascular Access Dvce: No Kidney Stones: No Musculoskeletal: Yes (ARTHRITIS) Neurologic: Yes (LAMINECTOMY,SIATICA, NEUROPATHY) Psychiatric: No Reproductive: No Respiratory: Yes (copd) Immunizations Current: No Migraines: Yes Myocardial Infarction: Yes (STENTS X 2) Renal Failure: No Seizures: No Sleep Apnea: No Thyroid Disease: No Ulcer: No Menopausal: Yes : 1 Para: 1 Miscarriage: 0 Past Surgical History Abdominal Surgery: Yes (appy) AICD: No Appendectomy: Yes Body Medical Devices: CARDIAC STENTS Cardiac Surgery: No Section: Yes Ear Surgery: No Endocrine Surgery: No Eye Surgery: No Genitourinary Surgery: No Gynecologic Surgery: Yes (C-SECT., HYSTERECTOMY) Hysterectomy: Yes Joint Replacement: No Neurologic Surgery: No Oral Surgery: Yes (TONSILS) Pacemaker: No Thoracic Surgery: No Tonsillectomy: Yes (ADENOIDS) Other Surgery: Yes (LEFT WRIST GANGLION CYST) Social History Alcohol Use: No Tobacco Use: No (QUIT 2001) Substance Use: No Allergies-Medications (Allergen,Severity, Reaction): Coded Allergies: Darvon (Verified Allergy, Mild, RASH, 03/11/17) *MDRO Multi-Drug Resistant Organism (Verified Adverse Reaction, Unknown, ) 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 Comments List of her allergies reviewed from the nursing note. Reported Meds & Prescriptions Reported Meds & Active Scripts Active Hydrocodone-Acetaminophen 5-325 mg Tab 1 Tab PO Q6H PRN Levofloxacin 500 Mg Tab 500 Mg PO DAILY Levemir Inj (Insulin Detemir) 1,000 unit/ 10 ML Vial 6 Units SQ DAILY Norvasc (Amlodipine Besylate) 10 Mg Tab 10 Mg PO DAILY Reported Zinc (Zinc Gluconate) 50 Mg Tab 50 Mg PO DAILY B-12 (Cyanocobalamin) 2,500 Mcg Subl 2,500 Mcg PO DAILY Nitroglycerin SL (Nitroglycerin) 0.4 Mg Subl 0.4 Mg SL DIRECTED PRN ONE TABLET UNDER THE TONGUE NEEDED FOR CHEST PAIN, MAY REPEAT EVERY FIVE MINUTES FOR A TOTAL OF 3 DOSES OR CALL 911 IF NO RELIEF Isosorbide Mononitrate ER (Isosorbide Mononitrate) 30 Mg Abbey 30 Mg PO DAILY Spironolactone 25 Mg Tab 25 Mg PO DAILY Pravastatin 40 Mg Tab 40 Mg PO DAILY Ranitidine (Ranitidine HCl) 150 Mg Cap 150 Mg PO DAILY PRN Jocelyn-Colace (Sennosides-Docusate Sodium) 8.6-50 Mg Tab 2 Tab PO DAILY Novolog Inj (Insulin Aspart) 1,000 Unit/10 Ml Vial Unknown Dose SQ ACHS Sliding Scale as directed. Metoprolol Tartrate 50 Mg Tab 50 Mg PO BID Lisinopril 20 Mg Tab 20 Mg PO DAILY Folic Acid 800 Mcg Tab 1,600 Mcg PO DAILY Effient (Prasugrel) 10 Mg Tab 10 Mg PO DAILY Aspirin 81 Mg Chew 81 Mg CHEW DAILY Narrative Medication List of her home medications reviewed from the nursing note. Review of Systems Except as stated in HPI: all other systems reviewed are Neg Physical Exam Narrative GENERAL: Awake, answering questions appropriately, significant distress SKIN: Focused skin assessment warm/dry. HEAD: Atraumatic. Normocephalic. EYES: Pupils equal and round. No scleral icterus. No injection or drainage. ENT: No nasal bleeding or discharge. Dry mucous membrane. NECK: Trachea midline. No JVD. CARDIOVASCULAR: Regular rate and rhythm. Tachycardia. No murmur appreciated. RESPIRATORY: No accessory muscle use. Tachypnea. Clear to auscultation. Breath sounds equal bilaterally. GASTROINTESTINAL: Abdomen soft, non-tender, nondistended. Hepatic and splenic margins not palpable. MUSCULOSKELETAL: No obvious deformities. No clubbing. No cyanosis. No edema. Right leg wound Vac NEUROLOGICAL: Awake and alert. No obvious cranial nerve deficits. Motor grossly within normal limits. Normal speech. PSYCHIATRIC: Appropriate mood and affect; insight and judgment normal. Data Data Last Documented VS Orders Complete Blood Count With Diff (03/11/17 09:09) Comprehensive Metabolic Panel (03/11/17 09:09) Magnesium (Mg) (03/11/17 09:09) Beta Hydroxybutyrate (Acetone) (03/11/17 09:09) Urinalysis - C+S If Indicated (03/11/17 09:09) Blood Culture (03/11/17 09:09) Arterial Blood Gas (Abg) (03/11/17 09:09) Blood Glucose (03/11/17 09:09) Blood Glucose (03/11/17 10:09) Ecg Monitoring (03/11/17 09:09) Iv Access Insert/Monitor (03/11/17 09:09) Oximetry (03/11/17 09:09) NPO (03/11/17 09:09) Sodium Chlor 0.9% 1000 Ml Inj (Ns 1000 M (03/11/17 09:09) Sodium Chloride 0.9% Flush (Ns Flush) (03/11/17 09:15) Electrocardiogram (03/11/17 ) Lactic Acid (03/11/17 10:00) Insulin Human Regular Inj (Novolin R Inj (03/11/17 10:00) Sodium Chlor 0.9% 1000 Ml Inj (Ns 1000 M (03/11/17 10:00) Chest, Single Ap (03/11/17 ) Piperacil-Tazo 4.5 Gm Premix (Zosyn 4.5 (03/11/17 10:45) Vancomycin Inj (Vancomycin Inj) (03/11/17 10:45) Dextrose 50% In Toan (Vial) Inj (D50w (Vi (03/11/17 10:45) Misc Information (03/11/17 10:45) ^ Notify Radiology (03/11/17 10:39) ^ Saline Lock (03/11/17 10:39) Sodium Chlor 0.9% 1... W/Sodium Bicarbon (03/11/17 10:39) Urinary Catheter Insert/Apply (03/11/17 10:45) Admit Order (Ed Use Only) (03/11/17 10:46) Labs MDM Medical Decision Making Medical Screen Exam Complete: Yes Emergency Medical Condition: Yes Medical Record Reviewed: Yes Interpretation(s) Twelve-lead EKG was reviewed by me. Normal sinus rhythm, left axis deviation, peaked T waves, questionable old anterior MS. Heart rate of 80 bpm. Differential Diagnosis DKA, sepsis Narrative Course 10:55 AM patient was tried to be fluid resuscitated. She had poor peripheral IV access and I decided to put a central line. She was very intravascularly collapsed and initially had tried to put a subclavian line but was unsuccessful. We switched to putting a IJ which was done successfully under ultrasound guidance. Please refer to my procedure note. Patient has currently received 3 L of IV fluid bolus, 10 units of IV insulin. I have ordered an insulin drip, Zosyn and vancomycin IV. Her core body temperature was 91. She has a Lim in that's putting out urine. I will also ordered a bicarbonate drip since her arterial blood gas was suggestive of severe metabolic acidosis. A bear hugger has been put on her. I spoke with the storage battery charger Dr. Virgen who has accepted the case. Patient is hyperventilating due to the metabolic acidosis. Her oxygen saturation is 100% and she is mentating normal. I do not see a reason to intubate her at this point. The storage battery charger agreed as well. Critical Care Narrative Aggregate critical care time was 90 minutes. Time to perform other separately billable procedures was not included in the critical care time. My time did not include minutes spent treating any other patients simultaneously or on activities that did not directly contribute to the patient's treatment. The services I provided to this patient were to treat and/or prevent clinically significant deterioration that could result in: DKA, severe metabolic acidosis, sepsis, hypothermia I provided critical care services requiring my management, as noted below: Chart data review, documentation time, medication orders and management, vital sign assessments/reviewing monitor data, ordering and reviewing lab tests, ordering and interpreting/reviewing x-rays and diagnostic studies, care of the patient and discussion of the patient with the admitting physicians. Procedures Procedure Narrative CENTRAL VENOUS LINE: The site was prepped with Betadine and sterilely draped. It was infiltrated with 1% lidocaine plain. The deep vein was cannulated using normal Seldinger technique. A triple lumen central line was placed in the left IJ site and secured with simple interrupted suture. The site was sterilely dressed. The patient tolerated the procedure well. Emergency department US guided peripheral IV was performed with patient consent. Linear probe was used in the transverse views of the peripheral vein to assist with vascular access. Right IJ was put under ultrasound guidance. Physician Communication Physician Communication Dr. Virgen Diagnosis Primary Impression: DKA (diabetic ketoacidoses) Qualified Code: E13.10 - Diabetic ketoacidosis without coma associated with other specified diabetes mellitus Additional Impressions: Metabolic acidosis Sepsis Qualified Code: A41.9 - Sepsis, due to unspecified organism Hypothermia Qualified Code: T68.XXXA - Hypothermia, initial encounter Admitting Information Admitting Physician Requests: Admit Terry Anaya MD Mar 11, 2017 08:59 Lymphocytes (%) (Auto) 5.8 % Monocytes (%) (Auto) 2.6 % Eosinophils (%) (Auto) 0.1 % Basophils (%) (Auto) 0.5 % Neutrophils # (Auto) 17.3 TH/MM3 Lymphocytes # (Auto) 1.1 TH/MM3 Monocytes # (Auto) 0.5 TH/MM3 Eosinophils # (Auto) 0.0 TH/MM3 Basophils # (Auto) 0.1 TH/MM3 CBC Comment DIFF FINAL Differential Comment Lactic Acid Level 2.6 mmol/L MDM Medical Decision Making Medical Screen Exam Complete: Yes Emergency Medical Condition: Yes Medical Record Reviewed: Yes Interpretation(s) Twelve-lead EKG was reviewed by me. Normal sinus rhythm, left axis deviation, peaked T waves, questionable old anterior MS. Heart rate of 80 bpm. Differential Diagnosis DKA, sepsis Narrative Course 10:55 AM patient was tried to be fluid resuscitated. She had poor peripheral IV access and I decided to put a central line. She was very intravascularly collapsed and initially had tried to put a subclavian line but was unsuccessful. We switched to putting a IJ which was done successfully under ultrasound guidance. Please refer to my procedure note. Patient has currently received 3 L of IV fluid bolus, 10 units of IV insulin. I have ordered an insulin drip, Zosyn and vancomycin IV. Her core body temperature was 91. She has a Lim in that's putting out urine. I will also ordered a bicarbonate drip since her arterial blood gas was suggestive of severe metabolic acidosis. A bear hugger has been put on her. I spoke with the storage battery charger Dr. Virgen who has accepted the case. Patient is hyperventilating due to the metabolic acidosis. Her oxygen saturation is 100% and she is mentating normal. I do not see a reason to intubate her at this point. The storage battery charger agreed as well. Critical Care Narrative Aggregate critical care time was 90 minutes. Time to perform other separately billable procedures was not included in the critical care time. My time did not include minutes spent treating any other patients simultaneously or on activities that did not directly contribute to the patient's treatment. The services I provided to this patient were to treat and/or prevent clinically significant deterioration that could result in: DKA, severe metabolic acidosis, sepsis, hypothermia I provided critical care services requiring my management, as noted below: Chart data review, documentation time, medication orders and management, vital sign assessments/reviewing monitor data, ordering and reviewing lab tests, ordering and interpreting/reviewing x-rays and diagnostic studies, care of the patient and discussion of the patient with the admitting physicians. Procedures Procedure Narrative CENTRAL VENOUS LINE: The site was prepped with Betadine and sterilely draped. It was infiltrated with 1% lidocaine plain. The deep vein was cannulated using normal Seldinger technique. A triple lumen central line was placed in the left IJ site and secured with simple interrupted suture. The site was sterilely dressed. The patient tolerated the procedure well. Emergency department US guided peripheral IV was performed with patient consent. Linear probe was used in the transverse views of the peripheral vein to assist with vascular access. Right IJ was put under ultrasound guidance. Physician Communication Physician Communication Dr. Virgen Diagnosis Primary Impression: DKA (diabetic ketoacidoses) Qualified Code: E13.10 - Diabetic ketoacidosis without coma associated with other specified diabetes mellitus Additional Impressions: Metabolic acidosis Sepsis Qualified Code: A41.9 - Sepsis, due to unspecified organism Hypothermia Qualified Code: T68.XXXA - Hypothermia, initial encounter Admitting Information Admitting Physician Requests: it Terry Anaya MD Mar 11, 2017 08:59
[2017-03-11] MEDS ORDERED: SODIUM CHLOR 0.9% 1000 ML INJ 1,000 ML IV ONE ×2 (09:09→10:00)
[2017-03-11 09:11] LABS: MEAN CORPUSCULAR HGB CONC 28.5 % (32.0-36.0)
[2017-03-11 09:12] LABS: BLOOD GAS BASE EXCESS -28.7 mmol/L (-2-2); BLOOD GAS CARBOXYHEMOGLOBIN 1.5 % (0-4); BLOOD GAS HCO3 2 mmol/L (22-26); BLOOD GAS METHEMOGLOBIN 0.7 % (0-2); BLOOD GAS O2 HGB SATURATION 96 % (90-100); BLOOD GAS OXYGEN CONTENT 14.6 Vol % (12.0-20.0); BLOOD GAS PCO2 8 mmHg (38-42); BLOOD GAS PO2 141 mmHG (61-120); BLOOD GAS TOTAL HGB 10.7 G/DL (12.0-16.0); CRITICAL VALUE YES; LITER FLOW 2 L/M; OXYGEN DEVICE NASAL CANNULA; TEMP CORR TO 98.6
[2017-03-11 09:13] LABS: DRAW SITE RT RADIAL; NUMBER OF ARTERIAL PUNCTURES 1; STAT YES; ULNAR PULSE PRESENT
[2017-03-11] MEDS ORDERED: SODIUM CHLORIDE 0.9% FLUSH 10 ML FLUSH IVF PRN (09:15)
[2017-03-11 09:48] LABS: AUTOMATED NEUTROPHIL # 17.3 TH/MM3 (1.8-7.7); BASOPHIL # 0.1 TH/MM3 (0-0.2); BASOPHIL % 0.5 % (0.0-2.0); EOSINOPHIL % 0.1 % (0.0-4.0); HEMATOCRIT 33.2 % (35.0-46.0); HEMO FLAGS DIFF FINAL; LYMPH % 5.8 % (9.0-44.0); LYMPHOCYTE # 1.1 TH/MM3 (1.0-4.8); MEAN CELL VOLUME 100.3 FL (80.0-100.0); MEAN CORPUSCULAR HEMOGLOBIN 28.6 PG (27.0-34.0); MONO % 2.6 % (0.0-8.0); PLATELET COUNT 406 TH/MM3 (150-450); RED BLOOD COUNT 3.31 MIL/MM3 (4.00-5.30); RED CELL DISTRIBUTION WIDTH 15.6 % (11.6-17.2); WHITE BLOOD COUNT 19.1 TH/MM3 (4.0-11.0)
[2017-03-11] MEDS ORDERED: INSULIN HUMAN REGULAR 1,000 UNITS/10 ML VIAL IV PUSH ONE ×2 (10:00→12:30)
[2017-03-11 10:18] LABS: ANION GAP 27 MEQ/L (5-15)
--- NOTE | 2017-03-11 10:22 | RADRPT ---
EXAM DATE/TIME: 03/11/2017 10:04 [place] COMPARISON: CHEST SINGLE AP, January 19, 2017, 18:09. INDICATIONS : Evaluate central line placement. MEDICAL HISTORY : Hypertension. Chronic obstructive pulmonary disease. Congestive heart failure. SURGICAL HISTORY : Coronary artery stent. ENCOUNTER: Initial ACUITY: 1 day PAIN SCORE: 0/10 LOCATION: Left chest FINDINGS: A single view of the chest demonstrates the lungs to be symmetrically aerated without evidence of mas s, infiltrate or effusion. The cardiomediastinal contours are unremarkable. Osseous structures are intact. CONCLUSION: Normal examination. Left IJ central venous catheter in excellent position. Bradley Doe MD on March 11, 2017 at 10:20 Board Certified Radiologist. This report was verified electronically.
[2017-03-11 10:23] LABS: ALKALINE PHOSPHATASE 177 U/L (45-117); ALT (GPT) 27 U/L (10-53); AST (GOT) 21 U/L (15-37); BETA-HYDROXYBUTYRATE 17.03 MMOL/L (0.00-0.39); BICARBONATE LESS THAN 5.0 MEQ/L (21.0-32.0); BLOOD UREA NITROGEN 38 MG/DL (7-18); CHLORIDE 104 MEQ/L (98-107); GLOMERULAR FILTRATION RATE 20 ML/MIN (>89); MAGNESIUM 2.7 MG/DL (1.5-2.5); POTASSIUM 6.4 MEQ/L (3.5-5.1); SODIUM (NA) 136 MEQ/L (136-145); TOTAL BILIRUBIN ADULT 0.3 MG/DL (0.2-1.0)
[2017-03-11] MEDS ORDERED: PIPERACIL-TAZO 4.5 GM PREMIX 100 ML IV ONE (10:45)
[2017-03-11] MEDS ORDERED: VANCOMYCIN INJ 1,000 MG in SODIUM CHLOR 0.9% 250 ML INJ 250 ML IV ONE (10:45)
[2017-03-11] MEDS ORDERED: DEXTROSE 50% IN WATER 50 ML VIAL(D50) IV PUSH PRN ×2 (10:45→11:00)
[2017-03-11] MEDS ORDERED: MISC INFORMATION XX ONE (10:45)
[2017-03-11] MEDS ORDERED: INSULIN REGULAR (IV INFUSION) 100 UNITS in SODIUM CHLORIDE 0.9% INJ 99 ML IV SCH (11:00)
[2017-03-11 11:06] LABS: BACTERIA, URINE FEW /hpf; BLOOD, URINE SMALL (NEG); COMMENT (UR) CULT NOT INDICATED; CULTURE IF INDICATED CULT NOT INDICATED; GLUCOSE,URINE 1000 mg/dL (NEG); KETONE, URINE 150 mg/dL (NEG); MUCUS URINE FEW /lpf (OCC); NITRITE,URINE NEG (NEG); PH, URINE 5.5 (5.0-8.5); SQUAMOUS EPITHELIAL CELL URINE <1 /hpf (0-5); URINE COLOR LIGHT-YELLOW (YELLW/STRAW)
[2017-03-11] MEDS ORDERED: CHLORHEXIDINE GLUCONATE 2 % 1 PACK (2 CLOTHS) TOP PRN (11:30)
[2017-03-11] MEDS ORDERED: BISACODYL 10 MG SUPP RECTAL PRN (11:30)
[2017-03-11] MEDS ORDERED: ACETAMINOPHEN 325 MG TAB PO PRN (11:30)
[2017-03-11] MEDS ORDERED: Vancomycin Consult Pharmacy 1 EA OTHER SCH (11:30)
[2017-03-11] MEDS ORDERED: SODIUM CHLORIDE 0.9% FLUSH 10 ML FLUSH IV FLUSH PRN (11:30)
[2017-03-11] MEDS ORDERED: MISCELLANEOUS NURSING INFORMATION XX SCH (11:30)
[2017-03-11] MEDS ORDERED: SODIUM BICARBONATE 8.4% SOLN 50 MEQ/50 ML VIAL IV PRN ×2 (11:45)
[2017-03-11] MEDS ORDERED: POTASSIUM CHLOR 40 MEQ PREMIX 100 ML IV PRN ×2 (11:45)
[2017-03-11] MEDS ORDERED: POTASSIUM CHLOR 20 MEQ PREMIX 100 ML IV PRN ×5 (11:45)
[2017-03-11] MEDS ORDERED: SODIUM PHOSPHATE INJ 15 MMOL in SODIUM CHLORIDE 0.9% INJ 100 ML IV PRN (11:45)
--- NOTE | 2017-03-11 12:11 | HHI.HP ---
HPI Service Critical Care Medicine Primary Care Physician NICHOLAS Claire Admission Diagnosis DKA, sepsis Diagnosis: Travel History International Travel<30 Days: No Contact w/Intl Traveler <30 Da: No Traveled to Known Affected Are: No History of Present Illness 66-year-old female was brought to the ER by EMS this a.m.. The patient was noted to be tachypneic 30's and tachycardic 130's, patient has a medical history significant for diabetes, blood glucose levels were obtained noted to be 500 mg/deciliter. The patient was alert and oriented 3. Upon admission to the ED, the patient received 3 L normal saline, insulin infusion initiated. Laboratory studies were obtained, patient was noted to be in DKA. DKA protocol initiated. Critical care medicine's consult for management. Upon entering the room, the patient was noted to have a respiratory rate in the 30s, alert and oriented, hemodynamically stable MAP's ranging [id number]. The patient appears to be protecting her airway at this time, Discussed with patient the possibility of intubation if required. History PFSH Past Medical History Narrative Medical List of her past medical, surgical, social and family history was reviewed from the nursing note. Hx Anticoagulant Therapy: Yes Anemia: Yes (iron deficiency) Arthritis: Yes Asthma: Yes Heart Rhythm Problems: No Cancer: No Cardiovascular Problems: Yes (htn on med, Hx ID with stents) High Cholesterol: No Chest Pain: Yes Congestive Heart Failure: Yes COPD: Yes Cerebrovascular Accident: No Coronary Artery Disease: Yes Diabetes: Yes (type 1) Diminished Hearing: No Endocrine: No Gastrointestinal Disorders: No GERD: No Genitourinary: No Headaches: No Hepatitis: No Hiatal Hernia: Yes Hypertension: Yes Immune Disorder: No Implanted Vascular Access Dvce: No Kidney Stones: No Musculoskeletal: Yes (ARTHRITIS) Neurologic: Yes (LAMINECTOMY,SIATICA, NEUROPATHY) Psychiatric: No Reproductive: No Respiratory: Yes (copd) Immunizations Current: No Migraines: Yes Myocardial Infarction: Yes (STENTS X 2) Renal Failure: No Seizures: No Sleep Apnea: No Thyroid Disease: No Ulcer: No Menopausal: Yes : 1 Para: 1 Miscarriage: 0 Past Surgical History Abdominal Surgery: Yes (appy) AICD: No Appendectomy: Yes Body Medical Devices: CARDIAC STENTS Cardiac Surgery: No Section: Yes Ear Surgery: No Endocrine Surgery: No Eye Surgery: No Genitourinary Surgery: No Gynecologic Surgery: Yes (C-SECT., HYSTERECTOMY) Hysterectomy: Yes Joint Replacement: No Neurologic Surgery: No Oral Surgery: Yes (TONSILS) Pacemaker: No Thoracic Surgery: No Tonsillectomy: Yes (ADENOIDS) Other Surgery: Yes (LEFT WRIST GANGLION CYST) Social History Alcohol Use: No Tobacco Use: No (QUIT 2001) Substance Use: No Allergies-Medications Allergies-Medications (Allergen,Severity, Reaction): Coded Allergies: Darvon (Verified Allergy, Mild, RASH, 03/11/17) *MDRO Multi-Drug Resistant Organism (Verified Adverse Reaction, Unknown, ) 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 Comments List of her allergies reviewed from the nursing note. Reported Meds & Prescriptions Reported Meds & Active Scripts Active Hydrocodone-Acetaminophen 5-325 mg Tab 1 Tab PO Q6H PRN Levofloxacin 500 Mg Tab 500 Mg PO DAILY Levemir Inj (Insulin Detemir) 1,000 unit/ 10 ML Vial 6 Units SQ DAILY Norvasc (Amlodipine Besylate) 10 Mg Tab 10 Mg PO DAILY Reported Zinc (Zinc Gluconate) 50 Mg Tab 50 Mg PO DAILY B-12 (Cyanocobalamin) 2,500 Mcg Subl 2,500 Mcg PO DAILY Nitroglycerin SL (Nitroglycerin) 0.4 Mg Subl 0.4 Mg SL DIRECTED PRN ONE TABLET UNDER THE TONGUE NEEDED FOR CHEST PAIN, MAY REPEAT EVERY FIVE MINUTES FOR A TOTAL OF 3 DOSES OR CALL 911 IF NO RELIEF Isosorbide Mononitrate ER (Isosorbide Mononitrate) 30 Mg [place] 30 Mg PO DAILY Spironolactone 25 Mg Tab 25 Mg PO DAILY Pravastatin 40 Mg Tab 40 Mg PO DAILY Ranitidine (Ranitidine HCl) 150 Mg Cap 150 Mg PO DAILY PRN Jocelyn-Colace (Sennosides-Docusate Sodium) 8.6-50 Mg Tab 2 Tab PO DAILY Novolog Inj (Insulin Aspart) 1,000 Unit/10 Ml Vial Unknown Dose SQ ACHS Sliding Scale as directed. Metoprolol Tartrate 50 Mg Tab 50 Mg PO BID Lisinopril 20 Mg Tab 20 Mg PO DAILY Folic Acid 800 Mcg Tab 1,600 Mcg PO DAILY Effient (Prasugrel) 10 Mg Tab 10 Mg PO DAILY Aspirin 81 Mg Chew 81 Mg CHEW DAILY Narrative Medication List of her home medications reviewed from the nursing note. ROS Review of Systems Except as stated in HPI: all other systems reviewed are Neg Physical Exam Vital Signs Vital Signs Date Time Temp Pulse Resp B/P Pulse Ox O2 Delivery O2 Flow Rate FiO2 03/11/17 11:38 91.2 88 34 121/60 100 Nasal Cannula 3 03/11/17 10:37 91.8 90 33 131/63 100 Nasal Cannula 3 03/11/17 10:01 79 36 139/63 100 Nasal Cannula 3 03/11/17 09:26 160 38 137/77 100 Nasal Cannula 3 03/11/17 09:15 94 Nasal Cannula 3 03/11/17 09:09 90 36 100 Nasal Cannula 2 03/11/17 09:00 74 36 155/68 100 Physical Exam GENERAL: Critically ill-appearing tachypnea female in moderate distress SKIN: Cool and dry. HEAD: Atraumatic. Normocephalic. EYES: Pupils equal and round. No scleral icterus. No injection or drainage. ENT: No nasal bleeding or discharge. Mucous membranes pink and dry. Uvula midline NECK: Trachea midline. No JVD. CARDIOVASCULAR: Normal rate, regular rhythm. RESPIRATORY: No accessory muscle use. Clear to auscultation. Breath sounds equal bilaterally. GASTROINTESTINAL: Abdomen soft, non-tender, nondistended. No guarding. MUSCULOSKELETAL: Extremities without clubbing, cyanosis, or edema. No obvious deformities. NEUROLOGICAL: Awake and alert. RASS 0. No gross focal/sensory deficits. Follows commands in all 4 extremities. Laboratory Laboratory Tests Test 03/11/17 03/11/17 03/11/17 09:05 09:28 10:34 Blood Gas Puncture Site RT RADIAL Blood Gas Patient Temperature 98.6 Blood Gas HCO3 2 Blood Gas Base Excess -28.7 Blood Gas Oxygen Saturation 96 Arterial Blood pH 6.94 Arterial Blood Partial 8 Pressure CO2 Arterial Blood Partial 141 Pressure O2 Arterial Blood Oxygen Content 14.6 Arterial Blood 1.5 Carboxyhemoglobin Arterial Blood Methemoglobin 0.7 Blood Gas Hemoglobin 10.7 Oxygen Delivery Device NASAL CANNULA Blood Gas Liter Flow 2 White Blood Count 19.1 Red Blood Count 3.31 Hemoglobin 9.5 Hematocrit 33.2 Mean Corpuscular Volume 100.3 Mean Corpuscular Hemoglobin 28.6 Mean Corpuscular Hemoglobin 28.5 Concent Red Cell Distribution Width 15.6 Platelet Count 406 Mean Platelet Volume 8.9 Neutrophils (%) (Auto) 91.0 Lymphocytes (%) (Auto) 5.8 Monocytes (%) (Auto) 2.6 Eosinophils (%) (Auto) 0.1 Basophils (%) (Auto) 0.5 Neutrophils # (Auto) 17.3 Lymphocytes # (Auto) 1.1 Monocytes # (Auto) 0.5 Eosinophils # (Auto) 0.0 Basophils # (Auto) 0.1 CBC Comment DIFF FINAL Differential Comment Sodium Level 136 Potassium Level 6.4 Chloride Level 104 Carbon Dioxide Level LESS THAN 5.0 Anion Gap 27 Blood Urea Nitrogen 38 Creatinine 2.46 Estimat Glomerular Filtration 20 Rate Random Glucose 663 Lactic Acid Level 2.6 Calcium Level 10.0 Magnesium Level 2.7 Total Bilirubin 0.3 Aspartate Amino Transf 21 (AST/SGOT) Alanine Aminotransferase 27 (ALT/SGPT) Alkaline Phosphatase 177 Total Protein 6.4 Albumin 2.3 B-Hydroxybutyrate 17.03 Urine Color LIGHT-YELLOW Urine Turbidity HAZY Urine pH 5.5 Urine Specific [place] 1.016 Urine Protein 100 Urine Glucose (UA) 1000 Urine Ketones 150 Urine Occult Blood SMALL Urine Nitrite NEG Urine Bilirubin NEG Urine Urobilinogen LESS THAN 2.0 Urine Leukocyte Esterase NEG Urine RBC 1 Urine WBC 3 Urine Squamous Epithelial <1 Cells Urine Amorphous Sediment MANY Urine Bacteria FEW Urine Mucus FEW Microscopic Urinalysis Comment CULT NOT INDICATED Date/Time Procedure Status Source Growth 03/11/17 09:34 Aerobic Blood Culture Received Blood Peripheral Pending 03/11/17 09:34 Anaerobic Blood Culture Received Blood Peripheral Pending Result Diagram: 03/11/1728 03/11/1728 Imaging Last Impressions Chest X-Ray 03/11/17 0000 Signed Impressions: Service Date/Time: February 10:04 - CONCLUSION: Normal examination. Left IJ central venous catheter in excellent position. Bradley Doe MD Septic Shock Reassessment Heart: Regular rate and rhythm Lungs: Clear Skin: Cold Peripheral Pulses: Bounding Right Radial Bounding Left Radial Bounding Right Dorsalis Pedis Bounding Left Dorsalis Pedis Capillary Refill: Brisk Assessment and Plan Assessment and Plan Plan by systems: Neurologic: Peripheral neuropathy Hypothermia Apply Pricilla hugger, maintain temperature greater than 36 Acetaminophen 650 every 6 hours Respiratory: COPD Asthma Maintain O2 sat greater than 92%, O2 currently at 2 L nasal cannula Duo nebs every 6 hours scheduled, every 2 hours when necessary Maintain head of bed greater than 30 Cardiovascular: CAD S/P PCI x 2 with 3 stents History of CHF Hypertension Obtain EKG Telemetry Resume antihypertensive medications as soon as clinically indicated Renal: Renal insufficiency AK I secondary to Dehydration Insert philippe -- Strict I/Os FEN/GI: Hiatal hernia Diabetic ketoacidosis Zofran for nausea Protonix GI prophylaxis Maintain nothing by mouth status Heme/ID: Necrotic right lower extremity wound Acute on chronic anemia Myelodysplasia Sepsis Leukocytosis ID consult for [id number] recommendation Received vancomycin and Zosyn in the ED Patient placed on Azactam, metronidazole and vancomycin Lactic acid 2.6, continue to monitor WBC 19, monitor CBC Endocrine: DKA Diabetes mellitus Give 0.1 unit/kilo regular insulin IV now [id number] Bolus normal saline 3 L, received in ED DKA protocol begin normal saline at 250 cc/hour Begin sodium bicarbonate infusion per protocol Repeat BMP in 6 hours Msk: Osteoarthritis Necrotic right lower extremity wound Status post wound VAC placement right lower extremity wound 03/02/17 Consult general surgery Prophylaxis: GI Prophylaxis Protonix IV DVT Prophylaxis -- SCD left leg only Heparin 5000 SQ Lines: Peripheral IVs 2. Central line if indicated Dispo: my billing statement This patient remains critically ill with one or more organ systems which are or may become a threat to life. I have spent in excess of 60 minutes discontinuously in the care and management of this patient. This time is exclusive of procedures, and includes, but is not limited to, evaluation of the patient, review of the medical record, discussions with family, consultants, nursing staff, or respiratory therapy, and documentation in the medical record. Code Status Full Discussed Condition With Dr Anaya , ED RN at bedside, and patient Charlene Virgen MD Mar 11, 2017 12:11
[2017-03-11] MEDS ORDERED: SODIUM BICARBONATE 8.4% INJ 50 MEQ/50 ML SYR IV PUSH ONE ×2 (12:45→14:45)
[2017-03-11] MEDS: SODIUM BICARBONATE 8.4% INJ 154 MEQ in SODIUM CHLOR 0.9% 1000 ML INJ 846 ML IV SCH ×2 (12:52→18:36)
[2017-03-11] MEDS: SODIUM CHLOR 0.9% 1000 ML INJ 1,000 ML IV SCH ×4 (12:53→23:30)
[2017-03-11] MEDS ORDERED: AZTREONAM INJ 1,000 MG in SODIUM CHLORIDE 0.9% INJ 100 ML IV SCH (13:00)
[2017-03-11] MEDS ORDERED: metroNIDAZOLE 500 MG INJ 100 ML IV SCH (14:00)
[2017-03-11 14:35] LABS: BLOOD GAS BASE EXCESS -20.8 mmol/L (-2-2); BLOOD GAS CARBOXYHEMOGLOBIN 2.5 % (0-4); BLOOD GAS HCO3 6 mmol/L (22-26); BLOOD GAS METHEMOGLOBIN 1.5 % (0-2); BLOOD GAS O2 HGB SATURATION 95 % (90-100); BLOOD GAS OXYGEN CONTENT 9.9 Vol % (12.0-20.0); BLOOD GAS PCO2 15 mmHg (38-42); BLOOD GAS PO2 107 mmHg (61-120); BLOOD GAS TOTAL HGB 7.3 G/DL (12.0-16.0); CRITICAL VALUE YES; DRAW SITE RT RADIAL; LITER FLOW 2 L/M; NUMBER OF ARTERIAL PUNCTURES 1; OXYGEN DEVICE NASAL CANNULA; STAT YES; TEMP CORR TO 98.6; ULNAR PULSE PRESENT
[2017-03-11] MEDS: HEPARIN SODIUM - SQ 10,000 UNITS/ML VIAL SQ SCH ×2 (14:36→19:54)
--- NOTE | 2017-03-11 14:52 | EKG ---
Date Performed: 03/11/2017 Time Performed: 09:19:21 PTAGE: 66 years EKG: Sinus rhythm LEFT AXIS DEVIATION NONSPECIFIC INTRAVENTRICULAR CONDUCTION DELAY NONSPECIFIC T-WAVE ABNORMALITY POS SIBLE T WAVE PEAKING, CONSIDER HYPERKALEMIA OR MYOCARDIAL ISCHEMIA ABNORMAL ECG PREVIOUS TRACING : 01/19/2017 17.26 Compared to previous tracing, nonspecific intraventricular conduction delay and possible T wave peaking are now evident. DOCTOR: Fuad Shaikh Interpretating Date/Time 03/11/2017 14:51:44
--- NOTE | 2017-03-11 14:59 | PD.ID.CON ---
History of Present Illness Service ID Consult Requested By Reason for Consult Evaluation and Mment of infected RLE ulcers s/p dog bite. Primary Care Physician NICHOLAS Claire Diagnoses: History of Present Illness is a 66 y/o CF with PMHx of Diabetes on Insulin at home, h/o dog bite in January 2017, s/p debridement of RLE wound by in February 2017. Patient was initially admitted in January 2017 for dog bite by her own dog. She reports animal control was called and the dog was put to rest. She still has two other dogs in her home. No other family members were harmed/bitten. Upon review of records it appears patient was treated with IV Unasyn. She was discharged home on oral augmentin. Patient was then readmitted for pain in RLE and found to have necrotic ulcers in RLE at site of dog bite. Patient underwent evaluation by Plastics and underwent debridement of RLE wounds and was ? on wound vac. Patient reports being under the care of wound care RNs. Patient now is admitted to when she presented to the hospital and was noted to have tachypnea 30's and tachycardia 130's, blood glucose levels were obtained noted to be 500 mg/deciliter. The patient was alert and oriented 3. Upon admission to the ED, the patient received 3 L normal saline, insulin infusion initiated. Laboratory studies were obtained, patient was noted to be in DKA. DKA protocol initiated. Critical care medicine's consult for management. At the time of my evaluation patient is in the IMC. Alert, maintaining airway, answering questions appropriately. UO ok. On IV Insulin gtt per CCM. ID consulted for eval and mment of infected RLE ulcers s.p dog bite with h/o MDR E.coli. Review of Systems Constitutional: DENIES: Diaphoretic episodes, Fatigue, Fever, Weight gain, Weight loss, Chills, Dizziness, Change in appetite, Night Sweats Endocrine: DENIES: Abnorml menstrual pattern, Heat/cold intolerance, Polydipsia , Polyuria, Polyphagia Eyes: DENIES: Blurred vision, Diplopia, Eye inflammation, Eye pain, Vision loss , Photosensitivity, Double Vision Ears, nose, mouth, throat: DENIES: Tinnitus, Hearing loss, Vertigo, Nasal discharge, Oral lesions, Throat pain, Hoarseness, Ear Pain, Running Nose, Epistaxis, Sinus Pain, Toothache, Odynophagia Respiratory: DENIES: Apneas, Cough, Snoring, Wheezing, Hemoptysis, Sputum production, Shortness of breath Cardiovascular: DENIES: Chest pain, Palpitations, Syncope, Dyspnea on Exertion , PND, Lower Extremity Edema, Orthopnea, Claudication Gastrointestinal: DENIES: Abdominal pain, Black stools, Bloody stools, Constipation, Diarrhea, Nausea, Vomiting, Difficulty Swallowing, Anorexia Genitourinary: DENIES: Abnormal vaginal bleeding, Dysmenorrhea, Dyspareunia, Sexual dysfunction, Urinary frequency, Urinary incontinence, Urgency, Hematuria , Dysuria, Nocturia, Vaginal discharge Musculoskeletal: DENIES: Joint pain, Muscle aches, Stiffness, Joint Swelling, Back pain, Neck pain Integumentary: DENIES: Abnormal pigmentation, Pruritus, Rash, Nail changes, Breast masses, Breast skin changes, Nipple discharge Hematologic/lymphatic: DENIES: Bruising, Lymphadenopathy Immunologic/allergic: DENIES: Eczema, Urticaria Neurologic: DENIES: Abnormal gait, Headache, Localized weakness, Paresthesias, Seizures, Speech Problems, Tremor, Poor Balance Psychiatric: DENIES: Anxiety, Confusion, Mood changes, Depression, Hallucinations, Agitation, Suicidal Ideation, Homicidal Ideation, Delusions Except as stated in HPI: all other systems reviewed are Neg Past Family Social History Allergies: Coded Allergies: Darvon (Verified Allergy, Mild, RASH, 03/11/17) *MDRO Multi-Drug Resistant Organism (Verified Adverse Reaction, Unknown, ) 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 Past Medical History Anemia, ? MDS seen by Hematology. DM, CAD, HTN, OA, Asthma, hiatal hernia, Diabetic neuropathy Past Surgical History Laminectomy, PCI with stent, abdominal surgery, appendectomy, , KATELYN, adenoidectomy, left wrist ganglion Debridement of RLE ulcer and wound vac placement ( 02/27/2017) Reported Medications Reported Meds & Active Scripts Active Hydrocodone-Acetaminophen 5-325 mg Tab 1 Tab PO Q6H PRN Levofloxacin 500 Mg Tab 500 Mg PO DAILY Levemir Inj (Insulin Detemir) 1,000 unit/ 10 ML Vial 6 Units SQ DAILY Norvasc (Amlodipine Besylate) 10 Mg Tab 10 Mg PO DAILY Reported Zinc (Zinc Gluconate) 50 Mg Tab 50 Mg PO DAILY B-12 (Cyanocobalamin) 2,500 Mcg Subl 2,500 Mcg PO DAILY Nitroglycerin SL (Nitroglycerin) 0.4 Mg Subl 0.4 Mg SL DIRECTED PRN ONE TABLET UNDER THE TONGUE NEEDED FOR CHEST PAIN, MAY REPEAT EVERY FIVE MINUTES FOR A TOTAL OF 3 DOSES OR CALL 911 IF NO RELIEF Isosorbide Mononitrate ER (Isosorbide Mononitrate) 30 Mg [place] 30 Mg PO DAILY Spironolactone 25 Mg Tab 25 Mg PO DAILY Pravastatin 40 Mg Tab 40 Mg PO DAILY Ranitidine (Ranitidine HCl) 150 Mg Cap 150 Mg PO DAILY PRN Jocelyn-Colace (Sennosides-Docusate Sodium) 8.6-50 Mg Tab 2 Tab PO DAILY Novolog Inj (Insulin Aspart) 1,000 Unit/10 Ml Vial Unknown Dose SQ ACHS Sliding Scale as directed. Metoprolol Tartrate 50 Mg Tab 50 Mg PO BID Lisinopril 20 Mg Tab 20 Mg PO DAILY Folic Acid 800 Mcg Tab 1,600 Mcg PO DAILY Effient (Prasugrel) 10 Mg Tab 10 Mg PO DAILY Aspirin 81 Mg Chew 81 Mg CHEW DAILY Active Ordered Medications Current Medications Medications (Trade) Dose Ordered Sig/Marie Route Start Time Stop Time Status Last Admin (Sodium Bicarbonate 8.4% Inj/NS 1000 ml Inj) 1,000 ml @ 0 mls/hr Q0M IV 03/11/17 10:39 03/11/17 12:52 (D50w (Vial) Inj) 25 ml UNSCH PRN IV PUSH 03/11/17 11:00 (NS Flush) 2 ml UNSCH PRN IV FLUSH 03/11/17 11:30 (NS Flush) 2 ml BID IV FLUSH 03/11/17 21:00 (Tylenol) 650 mg Q6H PRN PO 03/11/17 11:30 (Protonix Inj) 40 mg DAILY IV 03/12/17 09:00 (Zofran Inj) 4 mg Q6H PRN IV 03/11/17 11:30 (Dulcolax Supp) 10 mg DAILY PRN RECTAL 03/11/17 11:30 (Heparin Inj) 5,000 units Q8H SQ 03/11/17 13:00 03/11/17 14:36 Miscellaneous Information 1 [id number] XX 03/11/17 11:30 03/11/17 11:30 (Chlorhexidine 2% Cloth) 3 pack Taper DAILY@04 TOP 03/12/17 04:00 03/08/18 03:59 Chlorhexidine Gluconate 3 pack 3 pack UNSCH PRN TOP 03/11/17 11:30 Aztreonam 1000 mg/ Sodium Chloride 100 ml @ 200 mls/hr Q8H IV 03/11/17 13:00 03/11/17 14:36 Metronidazole 100 ml @ 100 mls/hr Q8H IV 03/11/17 14:00 03/11/17 14:36 Pharmacy Profile Note 0 ml @ 0 mls/hr UNSCH OTHER 03/11/17 11:30 Sodium Chloride 1,000 ml @ 250 mls/hr Q4H IV 03/11/17 12:30 03/11/17 14:23 Dextrose/Sodium Chloride 1,000 ml @ 200 mls/hr Q5H IV 03/11/17 12:30 Insulin Human Regular 100 units/ Sodium Chloride 100 ml @ 0 mls/hr TITRATE IV 03/11/17 11:45 Potassium Chloride 100 ml @ 100 mls/hr Q1H PRN IV 03/11/17 11:45 Potassium Chloride 100 ml @ 50 mls/hr Q2H PRN IV 03/11/17 11:45 Potassium Chloride 100 ml @ 100 mls/hr Q1H PRN IV 03/11/17 11:45 Potassium Chloride 100 ml @ 100 mls/hr Q1H PRN IV 03/11/17 11:45 Potassium Chloride 100 ml @ 50 mls/hr Q2H PRN IV 03/11/17 11:45 Potassium Chloride 100 ml @ 50 mls/hr Q2H PRN IV 03/11/17 11:45 Potassium Chloride 100 ml @ 50 mls/hr Q2H PRN IV 03/11/17 11:45 (KCl 20 Meq Premix Inj) 100 ml @ 50 mls/hr Q2H PRN IV 03/11/17 11:45 (Sodium Bicarbonate 8.4% Inj) 100 meq UNSCH PRN IV 03/11/17 11:45 Sodium Bicarbonate 50 meq 50 meq UNSCH PRN IV 03/11/17 11:45 (Sodium Phosphate Inj/NS Inj) 105 ml @ 25 mls/hr UNSCH PRN IV 03/11/17 11:45 Family History Father ? colon cancer at 40 yrs, . Remains to be confirmed. Social History Lives at home. Daughter, grandchildren and with 2 dogs in same household. no alcohol No smoking. No drugs. Physical Exam Vital Signs Vital Signs Date Time Temp Pulse Resp B/P Pulse Ox O2 Delivery O2 Flow Rate FiO2 03/11/17 12:55 92.7 72 36 98/53 100 Nasal Cannula 3 03/11/17 12:09 91.9 88 36 100/53 100 Nasal Cannula 3 03/11/17 11:38 91.2 88 34 121/60 100 Nasal Cannula 3 03/11/17 10:37 91.8 90 33 131/63 100 Nasal Cannula 3 03/11/17 10:01 79 36 139/63 100 Nasal Cannula 3 03/11/17 09:26 160 38 137/77 100 Nasal Cannula 3 03/11/17 09:15 94 Nasal Cannula 3 03/11/17 09:09 90 36 100 Nasal Cannula 2 03/11/17 09:00 74 36 155/68 100 Physical Exam GENERAL: This is a well-nourished, well-developed patient, in no apparent distress. SKIN: No rashes, ecchymoses or lesions. Cool and dry. HEAD: Atraumatic. Normocephalic. No temporal or scalp tenderness. EYES: Pupils equal round and reactive. Extraocular motions intact. No scleral icterus. No injection or drainage. ENT: Nose without bleeding, purulent drainage or septal hematoma. Throat without erythema, tonsillar hypertrophy or exudate. Uvula midline. Airway patent. NECK: Trachea midline. Supple, nontender, no meningeal signs. CARDIOVASCULAR: RRR. RESPIRATORY: Clear to auscultation. Breath sounds equal bilaterally. No wheezes , rales, or rhonchi. GASTROINTESTINAL: Abdomen soft, non-tender, nondistended. No guarding. MUSCULOSKELETAL: RLE with large 8x8 cm approx cm ulcer with areas where tendons are exposed. Also eschar noted at several areas. NEUROLOGICAL: Awake and alert. Grossly non focal Psych: cooperative IV line sites with no e.o infection/. CL new ok site. Laboratory Laboratory Tests Test 03/11/17 03/11/17 03/11/17 03/11/17 09:05 09:28 10:34 12:22 Blood Gas Puncture Site RT RADIAL Blood Gas Patient Temperature 98.6 Blood Gas HCO3 2 Blood Gas Base Excess -28.7 Blood Gas Oxygen Saturation 96 Arterial Blood pH 6.94 Arterial Blood Partial 8 Pressure CO2 Arterial Blood Partial 141 Pressure O2 Arterial Blood Oxygen Content 14.6 Arterial Blood 1.5 Carboxyhemoglobin Arterial Blood Methemoglobin 0.7 Blood Gas Hemoglobin 10.7 Oxygen Delivery Device NASAL CANNULA Blood Gas Liter Flow 2 White Blood Count 19.1 Red Blood Count 3.31 Hemoglobin 9.5 Hematocrit 33.2 Mean Corpuscular Volume 100.3 Mean Corpuscular Hemoglobin 28.6 Mean Corpuscular Hemoglobin 28.5 Concent Red Cell Distribution Width 15.6 Platelet Count 406 Mean Platelet Volume 8.9 Neutrophils (%) (Auto) 91.0 Lymphocytes (%) (Auto) 5.8 Monocytes (%) (Auto) 2.6 Eosinophils (%) (Auto) 0.1 Basophils (%) (Auto) 0.5 Neutrophils # (Auto) 17.3 Lymphocytes # (Auto) 1.1 Monocytes # (Auto) 0.5 Eosinophils # (Auto) 0.0 Basophils # (Auto) 0.1 CBC Comment DIFF FINAL Differential Comment Sodium Level 136 Potassium Level 6.4 Chloride Level 104 Carbon Dioxide Level LESS THAN 5.0 Anion Gap 27 Blood Urea Nitrogen 38 Creatinine 2.46 Estimat Glomerular Filtration 20 Rate Random Glucose 663 Lactic Acid Level 2.6 1.6 Calcium Level 10.0 Magnesium Level 2.7 Total Bilirubin 0.3 Aspartate Amino Transf 21 (AST/SGOT) Alanine Aminotransferase 27 (ALT/SGPT) Alkaline Phosphatase 177 Total Protein 6.4 Albumin 2.3 B-Hydroxybutyrate 17.03 Urine Color LIGHT-YELLOW Urine Turbidity HAZY Urine pH 5.5 Urine Specific [place] 1.016 Urine Protein 100 Urine Glucose (UA) 1000 Urine Ketones 150 Urine Occult Blood SMALL Urine Nitrite NEG Urine Bilirubin NEG Urine Urobilinogen LESS THAN 2.0 Urine Leukocyte Esterase NEG Urine RBC 1 Urine WBC 3 Urine Squamous Epithelial <1 Cells Urine Amorphous Sediment MANY Urine Bacteria FEW Urine Mucus FEW Microscopic Urinalysis Comment CULT NOT INDICATED Test 03/11/17 14:20 Blood Gas Puncture Site RT RADIAL Blood Gas Patient Temperature 98.6 Blood Gas HCO3 6 Blood Gas Base Excess -20.8 Blood Gas Oxygen Saturation 95 Arterial Blood pH 7.21 Arterial Blood Partial 15 Pressure CO2 Arterial Blood Partial 107 Pressure O2 Arterial Blood Oxygen Content 9.9 Arterial Blood 2.5 Carboxyhemoglobin Arterial Blood Methemoglobin 1.5 Blood Gas Hemoglobin 7.3 Oxygen Delivery Device NASAL CANNULA Blood Gas Liter Flow 2 Date/Time Procedure Status Source Growth 03/11/17 09:34 Aerobic Blood Culture Received Blood Peripheral Pending 03/11/17 09:34 Anaerobic Blood Culture Received Blood Peripheral Pending Result Diagram: 03/11/1728 03/11/1728 Imaging Last Impressions Chest X-Ray 03/11/17 0000 Signed Impressions: Service Date/Time: February 10:04 - CONCLUSION: Normal examination. Left IJ central venous catheter in excellent position. Bradley Doe MD Assessment and Plan Assessment and Plan Sepsis present on admission. RLE infected ulcer. tendons exposed ? tendinitis. h/o dog bite with secondary infection with MDR E.coli in RLE at site of dog bite. DM2 uncontrolled, with DKA on admission. Acute renal failure with underlying CKD: prerenal, sepsis, CKD secondary to DM. Lactic acidemia: ? sepsis related. Recs No other obvious sources other than the leg could be identified. Denies symptoms s/o UTI, pneumonia, Cdiff. UA did not reflex to culture. If has diarrhea send stool for Cdiff. Reports 2 BMs but was on stool softener. CXR negative. Was on Levaquin prior to admission. DC Azactam IV DC Flagyl IV DC Vanco IV. Will redose based on levels of vanco IV. Start Meropenem IV(ASP: h/o MDR E.coli in wound from recent admission which is likely source of infection again this time) Old records reviewed. Consult plastic surgery. Follow cultures Follow clinically. d/w patient and RN. Critical thinking and decision making. MAR, CXR reviewed by me. Dori Blue MD Mar 11, 2017 14:59
[2017-03-11] MEDS ORDERED: MISCELLANEOUS PHARMACY INFORMATION XX PRN (15:30)
[2017-03-11] MEDS ORDERED: ASP: Path resistant to other antimicrobials, culture proven PRN (15:30)
[2017-03-11] MEDS: RESP: ALBUTEROL 2.5 MG/IPRATROPIUM 0.5 MG NEB (SCH) INH ×2 (15:48→20:53)
[2017-03-11] MEDS: MEROPENEM INJ 500 MG in SODIUM CHLORIDE 0.9% INJ 100 ML IV SCH ×2 (16:27→23:29)
[2017-03-11 17:47] LABS: BICARBONATE 16.1 MEQ/L (21.0-32.0); MAGNESIUM 1.8 MG/DL (1.5-2.5); POTASSIUM 3.4 MEQ/L (3.5-5.1)
[2017-03-11] MEDS: INSULIN REGULAR (IV INFUSION) 100 UNITS in SODIUM CHLORIDE 0.9% INJ 99 ML IV SCH ×2 (18:00→23:29)
[2017-03-11] MEDS ORDERED: SODIUM BICARBONATE 8.4% INJ 50 MEQ/50 ML SYR IV PRN (18:17)
[2017-03-11] MEDS: DEXT 5%-NACL 0.9% 1000 ML INJ 1,000 ML IV SCH ×2 (19:51→23:28)
[2017-03-11] MEDS: SODIUM CHLORIDE 0.9% FLUSH 10 ML FLUSH IV FLUSH SCH (19:54)
[2017-03-11] MEDS: ONDANSETRON HCL 4 MG/2 ML VIAL IV PRN (19:59)
[2017-03-11 22:30] LABS: BLOOD GAS BASE EXCESS -3.5 mmol/L (-2-2); BLOOD GAS CARBOXYHEMOGLOBIN 2.5 % (0-4); BLOOD GAS HCO3 20 mmol/L (22-26); BLOOD GAS METHEMOGLOBIN 1.3 % (0-2); BLOOD GAS O2 HGB SATURATION 94 % (90-100); BLOOD GAS OXYGEN CONTENT 10.7 Vol % (12.0-20.0); BLOOD GAS PCO2 31 mmHg (38-42); BLOOD GAS PO2 76 mmHg (61-120); CRITICAL VALUE NO; DRAW SITE RT RADIAL; FIO2 28 %; LITER FLOW 2 L/M; NUMBER OF ARTERIAL PUNCTURES 1; OXYGEN DEVICE NASAL CANNULA; STAT NO; TEMP CORR TO 98.6; ULNAR PULSE PRESENT
[2017-03-11 23:05] LABS: BETA-HYDROXYBUTYRATE 2.34 MMOL/L (0.00-0.39); BICARBONATE 23.2 MEQ/L (21.0-32.0); MAGNESIUM 1.8 MG/DL (1.5-2.5); POTASSIUM 4.3 MEQ/L (3.5-5.1)
[2017-03-11] MEDS: POTASSIUM CHLOR 20 MEQ PREMIX 100 ML IV PRN ×2 (23:39→23:40)
[2017-03-12] VITALS (16 sets, daily range): BP systolic 116–193; BP diastolic 56–83; PULSE 93–120; RESP 11–26; TEMP 97.6–99.2; O2SAT 95–100
[2017-03-12] MEDS: DEXT 5%-NACL 0.9% 1000 ML INJ 1,000 ML IV SCH ×5 (02:21→20:23)
[2017-03-12] MEDS: CHLORHEXIDINE GLUCONATE 2 % 1 PACK (2 CLOTHS) TOP SCH (03:03)
[2017-03-12] MEDS: SODIUM CHLOR 0.9% 1000 ML INJ 1,000 ML IV SCH ×5 (03:04→17:58)
[2017-03-12] MEDS: ONDANSETRON HCL 4 MG/2 ML VIAL IV PRN ×2 (03:42→09:38)
[2017-03-12] MEDS: RESP: ALBUTEROL 2.5 MG/IPRATROPIUM 0.5 MG NEB (SCH) INH ×4 (04:00→21:01)
[2017-03-12] MEDS: HEPARIN SODIUM - SQ 10,000 UNITS/ML VIAL SQ SCH ×3 (04:04→20:45)
[2017-03-12 04:42] LABS: AUTOMATED NEUTROPHIL # 11.8 TH/MM3 (1.8-7.7); BASOPHIL # 0.1 TH/MM3 (0-0.2); BASOPHIL % 0.5 % (0.0-2.0); LYMPHOCYTE # 0.7 TH/MM3 (1.0-4.8); MEAN CELL VOLUME 86.9 FL (80.0-100.0); MEAN CORPUSCULAR HEMOGLOBIN 29.6 PG (27.0-34.0); MEAN CORPUSCULAR HGB CONC 34.1 % (32.0-36.0); MONO % 7.1 % (0.0-8.0); NEUT % 87.4 % (16.0-70.0); PLATELET COUNT 223 TH/MM3 (150-450); RED BLOOD COUNT 2.29 MIL/MM3 (4.00-5.30); RED CELL DISTRIBUTION WIDTH 14.2 % (11.6-17.2); WHITE BLOOD COUNT 13.5 TH/MM3 (4.0-11.0)
[2017-03-12 04:49] LABS: BICARBONATE 23.1 MEQ/L (21.0-32.0); MAGNESIUM 1.7 MG/DL (1.5-2.5); POTASSIUM 3.9 MEQ/L (3.5-5.1)
[2017-03-12 04:51] LABS: HEMO FLAGS DIFF FINAL
[2017-03-12 04:52] LABS: HEMATOCRIT 19.9 % (35.0-46.0)
[2017-03-12] MEDS ORDERED: GLUCAGON 1 MG/ML VIAL OTHER PRN (05:15)
[2017-03-12] MEDS ORDERED: DEXTROSE 50% IN WATER 50 ML VIAL(D50) IV PUSH PRN (05:15)
[2017-03-12] MEDS: INSULIN NovoLIN REGULAR SUPPLEMENTAL SCALE SQ SCH ×4 (07:00→20:46)
[2017-03-12] MEDS: MEROPENEM INJ 500 MG in SODIUM CHLORIDE 0.9% INJ 100 ML IV SCH ×2 (08:25→16:06)
[2017-03-12] MEDS: SODIUM CHLORIDE 0.9% FLUSH 10 ML FLUSH IV FLUSH SCH ×2 (08:26→20:23)
[2017-03-12] MEDS: INSULIN DETEMIR 100 UNITS/ML VIAL SQ SCH ×2 (08:26→20:45)
[2017-03-12] MEDS ORDERED: PANTOPRAZOLE SODIUM 40 MG VIAL IV SCH (09:00)
--- NOTE | 2017-03-12 09:45 | HHI.CCPN ---
Subjective Remarks/Hospital Course 66-year-old female was brought to the ER by EMS this a.m.. The patient was noted to be tachypneic 30's and tachycardic 130's, patient has a medical history significant for diabetes, blood glucose levels were obtained noted to be 500 mg/deciliter. The patient was alert and oriented 3. Upon admission to the ED, the patient received 3 L normal saline, insulin infusion initiated. Laboratory studies were obtained, patient was noted to be in DKA. DKA protocol initiated. Critical care medicine's consult for management. Upon entering the room, the patient was noted to have a respiratory rate in the 30s, alert and oriented, hemodynamically stable MAP's ranging [id number]. The patient appears to be protecting her airway at this time, Discussed with patient the possibility of intubation if required. Subjective 03/12: Anion gap closed. The patient continues on D5 normal saline at 100 cc an hour. Patient having nausea and vomiting with breakfast, Zofran given, diet change to clear liquid. Leukocytosis resolving. Hemoglobin was noted to be 6.8 early this a.m. patient being transfuse 1 unit PRBC .Awaiting General Surgery consult regarding right lower right lower extremity. Objective Vital Signs Date Time Temp Pulse Resp B/P Pulse Ox O2 Delivery O2 Flow Rate FiO2 03/12/17 08:00 120 03/12/17 07:58 100 Nasal Cannula 2.00 03/12/17 04:00 97.9 26 116/56 Intake and Output 03/11/17 03/11/17 03/12/17 08:00 16:00 00:00 Intake Total 2305 ml Output Total 825 ml Balance 1480 ml Result Diagram: 03/12/17 0420 03/12/17 0420 Other Results Laboratory Tests Test 03/11/17 03/11/17 03/11/17 09:05 14:20 22:20 Blood Gas Puncture Site RT RADIAL RT RADIAL RT RADIAL Blood Gas Patient Temperature 98.6 98.6 98.6 Blood Gas HCO3 2 mmol/L 6 mmol/L 20 mmol/L (22-26) (22-26) (22-26) Blood Gas Base Excess -28.7 mmol/L -20.8 mmol/L -3.5 mmol/L (-2-2) (-2-2) (-2-2) Blood Gas Oxygen Saturation 96 % (90-100) 95 % (90-100) 94 % (90-100) Arterial Blood pH 6.94 7.21 7.43 (7.380-7.420) (7.380-7.420) (7.380-7.420) Arterial Blood Partial 8 mmHg (38-42) 15 mmHg (38-42) 31 mmHg (38-42) Pressure CO2 Arterial Blood Partial 141 mmHG 107 mmHg 76 mmHg Pressure O2 (61-120) (61-120) (61-120) Arterial Blood Oxygen Content 14.6 Vol % 9.9 Vol % 10.7 Vol % (12.0-20.0) (12.0-20.0) (12.0-20.0) Arterial Blood 1.5 % (0-4) 2.5 % (0-4) 2.5 % (0-4) Carboxyhemoglobin Arterial Blood Methemoglobin 0.7 % (0-2) 1.5 % (0-2) 1.3 % (0-2) Blood Gas Hemoglobin 10.7 G/DL 7.3 G/DL 8.0 G/DL (12.0-16.0) (12.0-16.0) (12.0-16.0) Oxygen Delivery Device NASAL CANNULA NASAL CANNULA NASAL CANNULA Blood Gas Liter Flow 2 L/M 2 L/M 2 L/M Blood Gas Inspired Oxygen 28 % Imaging Last Impressions Chest X-Ray 03/11/17 0000 Signed Impressions: Service Date/Time: February 10:04 - CONCLUSION: Normal examination. Left IJ central venous catheter in excellent position. Bradley Doe MD Objective Remarks GENERAL: Well-developed female semirecumbent in bed. SKIN: Cool and dry. HEAD: Atraumatic. Normocephalic. EYES: Pupils equal and round. No scleral icterus. No injection or drainage. ENT: No nasal bleeding or discharge. Mucous membranes pink and dry. Uvula midline NECK: Trachea midline. No JVD. CARDIOVASCULAR: Normal rate, regular rhythm. RESPIRATORY: No accessory muscle use. Clear to auscultation. Breath sounds equal bilaterally. GASTROINTESTINAL: Abdomen soft, non-tender, nondistended. No guarding. MUSCULOSKELETAL: Extremities without clubbing, cyanosis, or edema. No obvious deformities. NEUROLOGICAL: Awake and alert. RASS 0. No gross focal/sensory deficits. Follows commands in all 4 extremities. Urinary Catheter: No Vascular Central Line Catheter: No A/P Assessment and Plan Plan by systems: Neurologic: Peripheral neuropathy Hypothermia-resolved Neurochecks per ICU protocol Acetaminophen 650 every 6 hours PRN Ofirmev 1 g every 6 hours 24 hours Respiratory: COPD Asthma Maintain O2 sat greater than 92%, O2 currently at 2 L nasal cannula Duo nebs every 6 hours scheduled, every 2 hours when necessary Maintain head of bed greater than 30 Cardiovascular: CAD S/P PCI x 2 with 3 stents History of CHF Hypertension Maintain MAP greater than 65 mmHg Norvasc 10 mg/day, metoprolol 50 mg twice a day, aspirin 81 mg/day Isordil resumed Lisinopril held in the setting of a creatinine of 2.0 Renal: Renal insufficiency Insert philippe -- Strict I/Os FEN/GI: Hiatal hernia Diabetic ketoacidosis-resolved Diabetes mellitus GERD Zofran for nausea Protonix GI prophylaxis Begin Pepcid 20 mg twice a day IV. Patient normally takes ranitidine when necessary home med Begin clear liquid diet as tolerated Heme/ID: Necrotic right lower extremity wound Acute on chronic anemia Myelodysplasia Sepsis Leukocytosis ID consult for MDRO- Received vancomycin and Zosyn in the ED Patient placed on Azactam, metronidazole and vancomycin Lactic acid 2.6, continue to monitor WBC 19->17 today. monitor CBC Endocrine: DKA Diabetes mellitus Give 0.1 unit/kilo regular insulin IV now [id number] Bolus normal saline 3 L, received in ED DKA protocol begin normal saline at 250 cc/hour Begin sodium bicarbonate infusion per protocol Repeat BMP in 6 hours Msk: Osteoarthritis Necrotic right lower extremity wound Status post wound VAC placement right lower extremity wound 03/02/17 General surgery follow-up recommendations[ Prophylaxis: GI Prophylaxis Protonix IV DVT Prophylaxis -- SCD left leg only Heparin 5000 SQ Lines: Peripheral IVs 2. Central line if indicated Dispo: my billing statement This patient remains critically ill with one or more organ systems which are or may become a threat to life. I have spent in excess of 49 minutes discontinuously in the care and management of this patient. This time is exclusive of procedures, and includes, but is not limited to, evaluation of the patient, review of the medical record, discussions with family, consultants, nursing staff, or respiratory therapy, and documentation in the medical record. Physician Charlene Beckford MD Mar 12, 2017 09:45
[2017-03-12] MEDS ORDERED: ACETAMINOPHEN 1000 MG/100 ML VIAL IV PRN (10:00)
[2017-03-12] MEDS: ASPIRIN 81 MG CHEW TAB CHEW SCH (10:01)
[2017-03-12] MEDS: PRAVASTATIN SOD 40 MG TAB PO SCH (10:01)
[2017-03-12] MEDS: ISOSORBIDE MONONITRATE 30 MG TAB PO SCH (10:01)
[2017-03-12] MEDS: METOPROLOL TARTRATE 50 MG TAB PO SCH ×2 (10:01→20:45)
[2017-03-12] MEDS ORDERED: METOPROLOL TARTRATE 5 MG/5 ML VIAL IV PUSH PRN (10:30)
[2017-03-12] MEDS: FAMOTIDINE 20 MG/2 ML VIAL IV PUSH SCH ×2 (11:15→20:50)
[2017-03-12 12:49] LABS: HEMATOCRIT 24.8 % (35.0-46.0); MEAN CELL VOLUME 87.2 FL (80.0-100.0); MEAN CORPUSCULAR HEMOGLOBIN 29.7 PG (27.0-34.0); PLATELET COUNT 211 TH/MM3 (150-450); RED BLOOD COUNT 2.85 MIL/MM3 (4.00-5.30); RED CELL DISTRIBUTION WIDTH 14.2 % (11.6-17.2); REVIEW FLAG FINAL; WHITE BLOOD COUNT 18.1 TH/MM3 (4.0-11.0)
[2017-03-12 13:22] LABS: BETA-HYDROXYBUTYRATE 2.58 MMOL/L (0.00-0.39); BICARBONATE 20.1 MEQ/L (21.0-32.0); MAGNESIUM 1.7 MG/DL (1.5-2.5); POTASSIUM 4.3 MEQ/L (3.5-5.1)
--- NOTE | 2017-03-12 15:27 | HHI.IDPN ---
Subjective Subjective Remarks is a 66 y/o CF with PMHx of Diabetes on Insulin at home, h/o dog bite in January 2017, s/p debridement of RLE wound by in February 2017. Patient was initially admitted in January 2017 for dog bite by her own dog. She reports animal control was called and the dog was put to rest. She still has two other dogs in her home. No other family members were harmed/bitten. Upon review of records it appears patient was treated with IV Unasyn. She was discharged home on oral augmentin. Patient was then readmitted for pain in RLE and found to have necrotic ulcers in RLE at site of dog bite. Patient underwent evaluation by Plastics and underwent debridement of RLE wounds and was ? on wound vac. Patient reports being under the care of wound care RNs. Patient now is admitted to when she presented to the hospital and was noted to have tachypnea 30's and tachycardia 130's, blood glucose levels were obtained noted to be 500 mg/deciliter. The patient was alert and oriented 3. Upon admission to the ED, the patient received 3 L normal saline, insulin infusion initiated. Laboratory studies were obtained, patient was noted to be in DKA. DKA protocol initiated. Critical care medicine's consult for management. At the time of my evaluation patient is in the IMC. Alert, maintaining airway, answering questions appropriately. UO ok. On IV Insulin gtt per CCM. ID consulted for eval and mment of infected RLE ulcers s.p dog bite with h/o MDR E.coli. Overnight events reviewed. No fever No rash No diarrhea CX negative Feels slightly better today. Antibiotics Meropenem IV Lines Line sites with no e.o infection. Past Medical History reviewed. Allergies: Coded Allergies: Darvon (Verified Allergy, Mild, RASH, 03/11/17) *MDRO Multi-Drug Resistant Organism (Verified Adverse Reaction, Unknown, ) 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 Objective . Vital Signs Date Time Temp Pulse Resp B/P Pulse Ox O2 Delivery O2 Flow Rate FiO2 03/12/17 15:00 97 03/12/17 14:00 96 03/12/17 12:00 94 03/12/17 12:00 98.3 94 11 172/76 98 03/12/17 10:00 109 03/12/17 08:00 99.2 109 24 193/83 99 03/12/17 08:00 120 03/12/17 08:00 98 03/12/17 07:58 100 Nasal Cannula 2.00 03/12/17 06:00 106 03/12/17 04:00 103 03/12/17 04:00 97.9 103 26 116/56 97 03/12/17 02:00 100 03/12/17 00:00 98.2 103 22 129/60 98 03/12/17 00:00 103 03/11/17 23:00 106 03/11/17 22:00 105 03/11/17 20:53 99 Nasal Cannula 2.00 03/11/17 20:00 104 03/11/17 20:00 98.4 105 25 131/60 97 03/11/17 18:00 97 03/11/17 16:00 97.0 96 36 136/61 100 03/11/17 16:00 96 03/11/17 15:49 100 Nasal Cannula 2.00 03/11/17 03/11/17 03/12/17 15:00 23:00 07:00 Intake Total 2305 ml 1711 ml Output Total 825 ml 1150 ml Balance 1480 ml 561 ml Intake Oral 0 ml 0 ml IV Total 2305 ml 1711 ml Output Urine Total 800 ml 1150 ml Emesis 25 ml # Bowel Movements 0 0 . Laboratory Tests Test 03/11/17 03/12/17 03/12/17 09:28 04:20 12:08 White Blood Count 19.1 TH/MM3 13.5 TH/MM3 18.1 TH/MM3 Red Blood Count 3.31 MIL/MM3 2.29 MIL/MM3 2.85 MIL/MM3 Hemoglobin 9.5 GM/DL 6.8 GM/DL 8.4 GM/DL Hematocrit 33.2 % 19.9 % 24.8 % Mean Corpuscular Volume 100.3 FL 86.9 FL 87.2 FL Mean Corpuscular Hemoglobin 28.6 PG 29.6 PG 29.7 PG Mean Corpuscular Hemoglobin 28.5 % 34.1 % 34.0 % Concent Red Cell Distribution Width 15.6 % 14.2 % 14.2 % Platelet Count 406 TH/MM3 223 TH/MM3 211 TH/MM3 Mean Platelet Volume 8.9 FL 8.4 FL 8.6 FL Neutrophils (%) (Auto) 91.0 % 87.4 % Lymphocytes (%) (Auto) 5.8 % 5.0 % Monocytes (%) (Auto) 2.6 % 7.1 % Eosinophils (%) (Auto) 0.1 % 0.0 % Basophils (%) (Auto) 0.5 % 0.5 % Neutrophils # (Auto) 17.3 TH/MM3 11.8 TH/MM3 Lymphocytes # (Auto) 1.1 TH/MM3 0.7 TH/MM3 Monocytes # (Auto) 0.5 TH/MM3 1.0 TH/MM3 Eosinophils # (Auto) 0.0 TH/MM3 0.0 TH/MM3 Basophils # (Auto) 0.1 TH/MM3 0.1 TH/MM3 CBC Comment DIFF FINAL DIFF FINAL Differential Comment Laboratory Tests Test 03/11/17 03/11/17 03/11/17 03/11/17 09:28 12:22 17:02 22:20 Sodium Level 136 MEQ/L 153 MEQ/L 153 MEQ/L Potassium Level 6.4 MEQ/L 3.4 MEQ/L 4.3 MEQ/L Chloride Level 104 MEQ/L 117 MEQ/L 122 MEQ/L Carbon Dioxide Level LESS THAN 5.0 16.1 MEQ/L 23.2 MEQ/L MEQ/L Anion Gap 27 MEQ/L 20 MEQ/L 8 MEQ/L Blood Urea Nitrogen 38 MG/DL 35 MG/DL 33 MG/DL Creatinine 2.46 MG/DL 1.95 MG/DL 2.19 MG/DL Estimat Glomerular Filtration 20 ML/MIN 26 ML/MIN 23 ML/MIN Rate Random Glucose 663 MG/DL 298 MG/DL 247 MG/DL Lactic Acid Level 2.6 mmol/L 1.6 mmol/L Calcium Level 10.0 MG/DL 8.1 MG/DL 8.3 MG/DL Magnesium Level 2.7 MG/DL 1.8 MG/DL 1.8 MG/DL Total Bilirubin 0.3 MG/DL Aspartate Amino Transf 21 U/L (AST/SGOT) Alanine Aminotransferase 27 U/L (ALT/SGPT) Alkaline Phosphatase 177 U/L Total Protein 6.4 GM/DL Albumin 2.3 GM/DL Phosphorus Level 0.8 MG/DL 0.3 MG/DL Test 03/12/17 03/12/17 04:20 12:08 Sodium Level 155 MEQ/L 148 MEQ/L Potassium Level 3.9 MEQ/L 4.3 MEQ/L Chloride Level 124 MEQ/L 118 MEQ/L Carbon Dioxide Level 23.1 MEQ/L 20.1 MEQ/L Anion Gap 8 MEQ/L 10 MEQ/L Blood Urea Nitrogen 32 MG/DL 28 MG/DL Creatinine 2.07 MG/DL 1.80 MG/DL Estimat Glomerular Filtration 24 ML/MIN 28 ML/MIN Rate Random Glucose 135 MG/DL 357 MG/DL Calcium Level 8.2 MG/DL 8.3 MG/DL Phosphorus Level 0.2 MG/DL 1.0 MG/DL Magnesium Level 1.7 MG/DL 1.7 MG/DL Microbiology Date/Time Procedure Status Source Growth 03/11/17 09:28 Aerobic Blood Culture - Preliminary Resulted Blood Peripheral NO GROWTH IN 1 DAY 03/11/17 09:28 Anaerobic Blood Culture - Preliminary Resulted Blood Peripheral NO GROWTH IN 1 DAY 03/11/17 09:34 Aerobic Blood Culture - Preliminary Resulted Blood Peripheral NO GROWTH IN 1 DAY 03/11/17 09:34 Anaerobic Blood Culture - Preliminary Resulted Blood Peripheral NO GROWTH IN 1 DAY Imaging Last Impressions Chest X-Ray 03/11/17 0000 Signed Impressions: Service Date/Time: February 10:04 - CONCLUSION: Normal examination. Left IJ central venous catheter in excellent position. Bradley Doe MD Physical Exam GENERAL: This is a well-nourished, well-developed patient, in no apparent distress. SKIN: No rashes, ecchymoses or lesions. Cool and dry. HEAD: Atraumatic. Normocephalic. No temporal or scalp tenderness. EYES: Pupils equal round and reactive. Extraocular motions intact. No scleral icterus. No injection or drainage. ENT: Nose without bleeding, purulent drainage or septal hematoma. Throat without erythema, tonsillar hypertrophy or exudate. Uvula midline. Airway patent. NECK: Trachea midline. Supple, nontender, no meningeal signs. CARDIOVASCULAR: RRR. RESPIRATORY: Clear to auscultation. Breath sounds equal bilaterally. No wheezes , rales, or rhonchi. GASTROINTESTINAL: Abdomen soft, non-tender, nondistended. No guarding. MUSCULOSKELETAL: RLE with large 8x8 cm approx cm ulcer with areas where tendons are exposed. Also eschar noted at several areas. NEUROLOGICAL: Awake and alert. Grossly non focal Psych: cooperative IV line sites with no e.o infection/. CL new ok site. Assessment & Plan Remarks Sepsis present on admission. RLE infected ulcer. tendons exposed ? tendinitis. h/o dog bite with secondary infection with MDR E.coli in RLE at site of dog bite. DM2 uncontrolled, with DKA on admission. Acute renal failure with underlying CKD: prerenal, sepsis, CKD secondary to DM. Lactic acidemia: ? sepsis related. Anemia ? GI blood loss vs hemodilution. Recs No other obvious sources other than the leg could be identified. Denies symptoms s/o UTI, pneumonia, Cdiff. UA did not reflex to culture. Continue Meropenem IV(ASP: h/o MDR E.coli in wound from recent admission which is likely source of infection again this time) If determined that leg is not infected looking and cultures negative will deescalate in next few days. Consult surgery. Follow cultures Follow clinically. d/w patient. covering for me this weekend. Dori Blue MD Mar 12, 2017 15:27
--- NOTE | 2017-03-12 16:04 | MB ---
cc: MARKEL DOWNING M.D., TANUJA MD DATE OF CONSULTATION: 03/12/2017. REASON FOR CONSULTATION: Infected wound of right leg. REQUESTING PHYSICIAN: The patient is being seen at the request of Dr. Dori Blue. HISTORY OF PRESENT ILLNESS The patient is a 66-year-old female with a history of a dog bite to her right leg. The patient was debrided on her last admission by general surgery and was then placed on a wound VAC as the wound was looking very clean. The patient came in last evening in diabetic ketoacidosis with a blood sugar over 500 and acidotic. The patient did require complete resuscitation and was placed on critical care. Consultation is requested regarding management of the wound. PAST MEDICAL HISTORY: Her past medical history is reviewed from the chart. 1. The patient is a history of anemia. 2. Arthritis. 3. Asthma. 4. Cardiovascular problems. 5. History of TN with stents. 6. Chest pain. 7. Congestive heart failure. 8. COPD. 9. Coronary artery disease. 10. Diabetes as noted above. 11. Hiatal hernia. 12. Hypertension. 13. Musculoskeletal disease. 14. Laminectomy. 15. Respiratory disease. 16. Migraines. PAST SURGICAL HISTORY: Surgical history is extensive and listed on the chart. SOCIAL HISTORY: The patient does not drink alcohol and quit smoking in 2001. ALLERGIES: Listed on the chart. MEDICATIONS: Listed on the chart. PHYSICAL EXAMINATION: GENERAL: On examination, the patient is sitting comfortably in bed. VITAL SIGNS: Her temperature is 98.3, pulse is 97, respirations are 11, blood pressure is 172/76 and pulse oximetry is 98 on two liters of oxygen. HEAD, EYES, EARS, NOSE, THROAT: Her extraocular muscles are intact. Pupils are equal round reactive to light. Mouth is clear. NECK: Neck is supple without masses. LUNGS: Clear to auscultation. HEART: Heart is regular. EXTREMITIES: Examination of the lower extremity reveals a wound which measures approximately 12 cm x 8 cm with small extensions in diameter. It is longer than it is wide. The base shows approximately 60% granulation and healthy tissue. There is some necrotic-appearing eschar present. There is no cellulitis around the edges. There is no redness. There is no swelling of the foot or ankle or the area around it. There is no foul odor. LABORATORY DATA: The patient's white count on admission was 19.1; today it is 18.1. Her hemoglobin and hematocrit are 8.4 / 24.8. Her chemistries do appear to be improving although this afternoon at twelve o'clock her blood sugar was 357. Her blood gases have stabilized to a pH of 7.43 whereas it was 6.94 on admission. Her culture was negative for indications for culture, although this may be related to the constant flow of urine related to her diabetic ketoacidosis. IMPRESSION: The patient has a chronic healing wound of her right lower extremity. There is no evidence of infection. There is no evidence cellulitis. This wound is in need of debridement which can be carried out at the bedside or as an outpatient; it is not something that needs to be done right away as there is no purulence present. PLAN: The patient will be placed the proper wound care of a Dakin solution. This will be changed twice a day. The patient can follow up in the outpatient wound care clinic here [place] or at a wound care center of her choosing. The patient is cleared for discharge on wound care. MD OMI Buchanan/ESA /3:33 PM /3:44 PM
[2017-03-12] MEDS: SODIUM HYPOCHLORITE 0.25% 500 ML BTL TOPICAL SCH (20:46)
[2017-03-13] VITALS (7 sets, daily range): BP systolic 131–168; BP diastolic 67–114; PULSE 83–97; RESP 16–20; TEMP 97.7–99.1; O2SAT 94–97
[2017-03-13] MEDS: SODIUM CHLOR 0.9% 1000 ML INJ 1,000 ML IV SCH ×6 (00:30→18:53)
[2017-03-13] MEDS: ONDANSETRON HCL 4 MG/2 ML VIAL IV PRN ×4 (03:19→22:40)
[2017-03-13] MEDS: CHLORHEXIDINE GLUCONATE 2 % 1 PACK (2 CLOTHS) TOP SCH (04:00)
[2017-03-13] MEDS: RESP: ALBUTEROL 2.5 MG/IPRATROPIUM 0.5 MG NEB (SCH) INH ×4 (04:42→19:25)
[2017-03-13] MEDS: DEXT 5%-NACL 0.9% 1000 ML INJ 1,000 ML IV SCH ×3 (05:45→14:30)
[2017-03-13] MEDS: HEPARIN SODIUM - SQ 10,000 UNITS/ML VIAL SQ SCH ×3 (05:49→21:48)
[2017-03-13] MEDS: INSULIN NovoLIN REGULAR SUPPLEMENTAL SCALE SQ SCH ×3 (05:55→16:27)
[2017-03-13 06:59] LABS: HEMATOCRIT 26.6 % (35.0-46.0); MEAN CELL VOLUME 87.7 FL (80.0-100.0); MEAN CORPUSCULAR HEMOGLOBIN 28.8 PG (27.0-34.0); MEAN CORPUSCULAR HGB CONC 32.8 % (32.0-36.0); PLATELET COUNT 189 TH/MM3 (150-450); RED BLOOD COUNT 3.03 MIL/MM3 (4.00-5.30); RED CELL DISTRIBUTION WIDTH 14.9 % (11.6-17.2); REVIEW FLAG FINAL; WHITE BLOOD COUNT 18.4 TH/MM3 (4.0-11.0)
[2017-03-13 07:16] LABS: BICARBONATE 19.9 MEQ/L (21.0-32.0); MAGNESIUM 1.6 MG/DL (1.5-2.5); POTASSIUM 3.7 MEQ/L (3.5-5.1)
[2017-03-13] MEDS: INSULIN DETEMIR 100 UNITS/ML VIAL SQ SCH ×2 (08:41→21:00)
[2017-03-13] MEDS: MEROPENEM INJ 500 MG in SODIUM CHLORIDE 0.9% INJ 100 ML IV SCH ×4 (08:41→16:26)
[2017-03-13] MEDS: ISOSORBIDE MONONITRATE 30 MG TAB PO SCH (08:42)
[2017-03-13] MEDS: ASPIRIN 81 MG CHEW TAB CHEW SCH (08:42)
[2017-03-13] MEDS: PRAVASTATIN SOD 40 MG TAB PO SCH (08:42)
[2017-03-13] MEDS: METOPROLOL TARTRATE 50 MG TAB PO SCH ×2 (08:42→21:48)
[2017-03-13] MEDS: FAMOTIDINE 20 MG/2 ML VIAL IV PUSH SCH ×2 (08:43→21:00)
[2017-03-13] MEDS: SODIUM CHLORIDE 0.9% FLUSH 10 ML FLUSH IV FLUSH SCH ×2 (08:43→21:49)
[2017-03-13] MEDS: SODIUM HYPOCHLORITE 0.25% 500 ML BTL TOPICAL SCH ×2 (08:44→22:16)
--- NOTE | 2017-03-13 17:14 | HHI.PR ---
Subjective Remarks Having diarrhea and abdominal pain. Moderate. No alleviating factors. Also persistent nausea, vomiting. AF. Also having pain in the left lower extremity wound. Objective Vitals Vital Signs Date Time Temp Pulse Resp B/P Pulse Ox O2 Delivery O2 Flow Rate FiO2 03/13/17 16:00 97.8 83 20 131/67 97 03/13/17 12:00 98.7 95 20 145/78 94 03/13/17 08:30 96 03/13/17 08:00 97.7 96 18 164/114 95 03/13/17 05:34 98.8 96 18 168/70 95 03/12/17 23:43 98.3 94 20 150/63 95 03/12/17 22:00 93 03/12/17 21:01 97 Nasal Cannula 1.00 03/12/17 20:00 96 03/12/17 20:00 98.6 96 24 168/75 97 03/12/17 18:00 97 I/O 03/12/17 03/12/17 03/12/17 03/13/17 03/13/17 03/13/17 07:00 15:00 23:00 07:00 15:00 23:00 Intake Total 1711 ml 2561 ml 1362 ml 672 ml 720 ml Output Total 1150 ml 475 ml 450 ml 1250 ml Balance 561 ml 2086 ml 912 ml 672 ml -530 ml Intake Oral 0 ml 300 ml 120 ml 720 ml IV Total 1711 ml 2261 ml 1242 ml 672 ml Output Urine Total 1150 ml 475 ml 450 ml 1250 ml # Bowel Movements 0 3 0 5 Result Diagram: 03/13/1761903/13/17619 Objective Remarks GENERAL: Well-nourished, well-developed pleasant CF patient. SKIN: Warm and dry. HEAD: Normocephalic. EYES: No scleral icterus. No injection or drainage. NECK: Supple, trachea midline. No JVD or lymphadenopathy. CARDIOVASCULAR: Regular rate and rhythm without murmurs, gallops, or rubs. RESPIRATORY: Breath sounds equal bilaterally. No accessory muscle use. GASTROINTESTINAL: Abdomen soft, non-tender, nondistended. EXTREMITIES: No cyanosis, or edema. right lower extremity medial aspect with large deep wound estimatition 12 by 4 cm (to muscle depth) wound, with small amount of necrosis, no tendon involvement, no bone exposed. NEUROLOGICAL: Awake, alert, and oriented x 3. Non-focal. A/P Problem List: (1) Nausea & vomiting ICD Code: R11.2 Status: Acute (2) Lactic acid acidosis ICD Code: E87.2 Status: Chronic (3) Anemia ICD Code: D64.9 Status: Chronic (4) COPD (chronic obstructive pulmonary disease) ICD Code: J44.9 Status: Chronic (5) HTN (hypertension) ICD Code: I10 Status: Chronic (6) IDDM (insulin dependent diabetes mellitus) ICD Code: E11.9 Status: Chronic (7) Hypothermia ICD Code: T68.XXXA Status: Resolved (8) Sepsis ICD Code: A41.9 Status: Acute (9) Metabolic acidosis ICD Code: E87.2 Status: Resolved (10) DKA (diabetic ketoacidoses) ICD Code: E13.10 Status: Resolved (11) Dog bite of multiple sites of right lower extremity ICD Code: S81.851A Status: Chronic (12) Hypertension ICD Code: I10 Status: Chronic (13) Leukocytosis ICD Code: D72.829 Status: Acute (14) CONOR (acute kidney injury) ICD Code: N17.9 Status: Acute (15) Diarrhea ICD Code: R19.7 Status: Acute (16) CAD (coronary artery disease) ICD Code: I25.10 Status: Chronic Assessment and Plan -Sepsis, possible source right leg wound, possible colitis, see below. VSS. -S/p DKA - still on D5 IVF, accuchesk 300, will change IVF to NS at 100 ml/hr. -Right lower extremity wound s/p dog bite previous admission, had wound vac on at home (placed /), now dressing changes per plastic. Concern for wound infection on admission, no wound culture. S/p plastic eval with Dr. Moore yesterday who felt wound did not appear infected. On meropenem IV per ID/Dr. Blue as previous hospitalization she grew resistant organism. Patient has leukocytosis but downtrending. Now with diarrhea and abdominal pain, will check C dif. Blood cultures NG x 2 d. UA, cxr neg. Check prealbumin level to assess nutrition. -Nausea and vomiting - due to colitis? vs gastroparesis. abd exam benign. Will start reglan IV scheduled AC. Clear liquid diet. Consult GI if persists. -Type 2 DM, uncontrolled - consult telehealth nurse educator. cont levemir 4 units sq q 12 hr, to hold if not taking meals or glucose<120. SSI low novolog AC, HS, 03: 00. -Hypernatremia, hypovolemic - NS 125 ml/hr, repeat BMP in a.m. Monitor for fluid overload with hx CHF. -CONOR - improving, nonoliguric, cont IVF, LUCIA covarrubiasey in a.m. -Anemia of chronic illness, hb improved s/p transfusion, repeat CBC in a.m. -Severe metabolic acidosis, improved. -Acute metabolic encephalopathy - resolved. -Diabetic Peripheral neuropathy - start neurontin 100 mg Po BID. lortab prn for pain. -Hypothermia-resolved -COPD/Asthma-without acute exacerbation. Duo nebs every 6 hours scheduled, every 2 hours when necessary, O2 via NC as needed. -CAD, history 3 stents, [facility] in 2014-cont metoprolol 50 mg twice a day, aspirin 81 mg/day Isordil. resume acei when kidney function improved. -CHF-last known echo 2014 with preserved EF, repeat echo to eval LV function. Hypertension-improved control. cont Norvasc 10 mg/day, metoprolol 50 mg twice a day, aspirin 81 mg/day Isordil resumed -GERD-cont Pepcid 20 mg twice a day IV until PO intake better then change to PO route. DVT Prophylaxis-Heparin 5000 SQ Problem Qualifiers (1) Hypothermia: Qualified Code: T68.XXXA - Hypothermia, initial encounter (2) Sepsis: Qualified Code: A41.9 - Sepsis, due to unspecified organism (3) DKA (diabetic ketoacidoses): Qualified Code: E13.10 - Diabetic ketoacidosis without coma associated with other specified diabetes mellitus (4) Dog bite of multiple sites of right lower extremity: Qualified Code: S81.851D - Dog bite of multiple sites of right lower extremity , subsequent encounter (5) CAD (coronary artery disease): Qualified Code: I25.10 - Coronary artery disease involving curyung coronary artery of curyung heart without angina pectoris Uzma Prabhakar MD Mar 13, 2017 17:14
[2017-03-13] MEDS ORDERED: GLUCAGON 1 MG/ML VIAL OTHER PRN (17:45)
[2017-03-13] MEDS ORDERED: DEXTROSE 50% IN WATER 50 ML VIAL(D50) IV PUSH PRN (17:45)
[2017-03-13] MEDS ORDERED: ALTEPLASE RECOMBINANT 2 MG VIAL INTRACATH ONE (20:00)
[2017-03-13 20:04] LABS: C. DIFF EPI 027 PRESUMPTIVE NEGATIVE (NEGATIVE)
[2017-03-13] MEDS ORDERED: ACETAMINOPHEN/HYDROcodone 325 MG/5 MG TAB PO PRN (21:00)
[2017-03-13] MEDS: INSULIN ASPART SUPPLEMENTAL SCALE SQ SCH (21:00)
[2017-03-13] MEDS: MORPHINE SULFATE 4 MG/ML INJ IV PUSH PRN (22:39)
[2017-03-13 23:43] LABS: C. DIFF TOXIN PCR POSITIVE (NEGATIVE)
[2017-03-14] VITALS (9 sets, daily range): BP systolic 129–187; BP diastolic 65–74; PULSE 67–88; RESP 18–20; TEMP 98.5–99.1; O2SAT 93–98
[2017-03-14] MEDS: MEROPENEM INJ 500 MG in SODIUM CHLORIDE 0.9% INJ 100 ML IV SCH ×2 (00:24→08:12)
[2017-03-14] MEDS: RESP: ALBUTEROL 2.5 MG/IPRATROPIUM 0.5 MG NEB (SCH) INH ×4 (03:45→20:50)
[2017-03-14] MEDS: CHLORHEXIDINE GLUCONATE 2 % 1 PACK (2 CLOTHS) TOP SCH (04:00)
[2017-03-14] MEDS: ONDANSETRON HCL 4 MG/2 ML VIAL IV PRN ×2 (04:15→21:38)
[2017-03-14] MEDS: HEPARIN SODIUM - SQ 10,000 UNITS/ML VIAL SQ SCH ×3 (04:15→21:39)
[2017-03-14] MEDS: MORPHINE SULFATE 4 MG/ML INJ IV PUSH PRN (04:17)
[2017-03-14 05:41] LABS: AUTOMATED NEUTROPHIL # 9.6 TH/MM3 (1.8-7.7); BASOPHIL # 0.1 TH/MM3 (0-0.2); BASOPHIL % 0.8 % (0.0-2.0); HEMATOCRIT 23.5 % (35.0-46.0); HEMO FLAGS DIFF FINAL; LYMPH % 9.1 % (9.0-44.0); MEAN CELL VOLUME 86.9 FL (80.0-100.0); MEAN CORPUSCULAR HEMOGLOBIN 28.9 PG (27.0-34.0); MEAN CORPUSCULAR HGB CONC 33.3 % (32.0-36.0); MONO % 3.7 % (0.0-8.0); NEUT % 86.4 % (16.0-70.0); PLATELET COUNT 168 TH/MM3 (150-450); RED CELL DISTRIBUTION WIDTH 15.2 % (11.6-17.2); WHITE BLOOD COUNT 11.1 TH/MM3 (4.0-11.0)
[2017-03-14 06:11] LABS: BICARBONATE 22.6 MEQ/L (21.0-32.0); POTASSIUM 3.3 MEQ/L (3.5-5.1)
[2017-03-14] MEDS: INSULIN ASPART SUPPLEMENTAL SCALE SQ SCH ×4 (07:00→21:40)
[2017-03-14] MEDS: METOCLOPRAMIDE HCL 10 MG/2 ML VIAL IV PUSH SCH ×3 (08:11→16:19)
[2017-03-14] MEDS: ISOSORBIDE MONONITRATE 30 MG TAB PO SCH (08:12)
[2017-03-14] MEDS: METOPROLOL TARTRATE 50 MG TAB PO SCH ×2 (08:12→21:36)
[2017-03-14] MEDS: ASPIRIN 81 MG CHEW TAB CHEW SCH (08:12)
[2017-03-14] MEDS: INSULIN DETEMIR 100 UNITS/ML VIAL SQ SCH ×2 (08:13→21:40)
[2017-03-14] MEDS: SODIUM HYPOCHLORITE 0.25% 500 ML BTL TOPICAL SCH ×2 (08:13→21:40)
[2017-03-14] MEDS: GABAPENTIN 100 MG CAP PO SCH ×3 (08:13→16:19)
[2017-03-14] MEDS: PRAVASTATIN SOD 40 MG TAB PO SCH (08:13)
[2017-03-14] MEDS: FAMOTIDINE 20 MG/2 ML VIAL IV PUSH SCH ×2 (08:13→21:37)
[2017-03-14] MEDS: SODIUM CHLORIDE 0.9% FLUSH 10 ML FLUSH IV FLUSH SCH ×2 (08:14→21:40)
[2017-03-14] MEDS: SODIUM CHLOR 0.9% 1000 ML INJ 1,000 ML IV SCH ×2 (08:15→16:20)
--- NOTE | 2017-03-14 10:44 | HHI.PR ---
Addendum to Inpatient Note Addendum Reason: Additional Documentation Additional Information Chart reviewed Diarrhea 5 episodes. Cdiff positive PCR. Patient reported diarrhea on admission but none after admission. She also reported being on stool softeners at home. Recent multiple antibiotic usage for dog bite related infected wounds. Start oral vanco 125 mg po q6hrs would recommend a 2 week course from today depending on clinical response. DC Meropenem Continue wound care for leg per plastics. Will need referral to [facility] wound care clinic to prevent recurrent admissions. d/w Dori Rivas MD Mar 14, 2017 10:43
[2017-03-14] MEDS: VANCOMYCIN 500 MG VIAL (FOR ORAL USE ONLY) PO SCH ×3 (11:16→21:39)
[2017-03-14] MEDS ORDERED: metroNIDAZOLE 500 MG TAB PO SCH (12:00)
[2017-03-14] MEDS ORDERED: POTASSIUM CHLOR 20 MEQ PREMIX 100 ML IV ONE (15:00)
--- NOTE | 2017-03-14 15:24 | HHI.PR ---
Subjective Remarks Follow up for C.difficile diarrhea. The patient reports feeling a lot better today. She reports no BM overnight or today. She did have 1 episode of vomiting but has now been able to tolerate her diet. Denies fevers/chills. Denies abdominal pain. No other medical complaints at this time. Objective Vitals Vital Signs Date Time Temp Pulse Resp B/P Pulse Ox O2 Delivery O2 Flow Rate FiO2 03/14/17 12:00 98.8 67 20 129/73 96 03/14/17 09:38 97 Nasal Cannula 21 03/14/17 08:20 70 03/14/17 08:00 98.9 68 18 187/74 95 03/14/17 04:00 99.1 70 20 166/74 97 03/14/17 00:23 98.8 88 18 149/70 98 03/13/17 20:36 99.1 97 16 168/73 96 03/13/17 20:00 97 03/13/17 16:00 97.8 83 20 131/67 97 I/O 03/13/17 03/13/17 03/13/17 03/14/17 03/14/17 03/14/17 07:00 15:00 23:00 07:00 15:00 23:00 Intake Total 672 ml 720 ml 2865 ml 689 ml Output Total 1250 ml 350 ml 275 ml Balance 672 ml -530 ml 2515 ml 414 ml Intake Oral 720 ml 240 ml IV Total 672 ml 2625 ml 689 ml Output Urine Total 1250 ml 350 ml 275 ml # Bowel Movements 5 0 Result Diagram: 03/14/17 0530 03/14/17 0530 Imaging Last Impressions Chest X-Ray 03/11/17 0000 Signed Impressions: Service Date/Time: February 10:04 - CONCLUSION: Normal examination. Left IJ central venous catheter in excellent position. Bradley Doe MD Objective Remarks GENERAL: Well-nourished, well-developed female patient in [place]. SKIN: Warm and dry. No rash. HEENT: Normocephalic. Atraumatic.Pupils equal and round. Mucous membranes pink and moist. NECK: Supple. Trachea midline. CARDIOVASCULAR: Regular rate and rhythm. S1, S2 noted. No murmur appreciated. RESPIRATORY: No accessory muscle use. Clear to auscultation. Breath sounds equal bilaterally. GASTROINTESTINAL: Abdomen soft, non-tender, nondistended. Normoactive bowel sounds x4. MUSCULOSKELETAL: No obvious deformities. Extremities without clubbing, cyanosis , or edema. Medial RLE with large deep wound ~12x4cm with minimal necrosis, no tendon involvement, no bone exposed; currently wrapped in dressing, CDI. NEUROLOGICAL: Awake and alert. No obvious cranial nerve deficits. Motor grossly within normal limits. Normal speech. PSYCHIATRIC: Appropriate mood and affect; insight and judgment normal. Medications and IVs Current Medications Medications (Trade) Dose Ordered Sig/Marie Route Start Time Stop Time Status Last Admin (Sodium Bicarbonate 8.4% Inj/NS 1000 ml Inj) 1,000 ml @ 0 mls/hr Q0M IV 03/11/17 10:39 03/11/17 18:36 (NS Flush) 2 ml UNSCH PRN IV FLUSH 03/11/17 11:30 (NS Flush) 2 ml BID IV FLUSH 03/11/17 21:00 03/14/17 08:14 (Tylenol) 650 mg Q6H PRN PO 03/11/17 11:30 03/12/17 22:29 (Zofran Inj) 4 mg Q6H PRN IV 03/11/17 11:30 03/14/17 04:15 (Dulcolax Supp) 10 mg DAILY PRN RECTAL 03/11/17 11:30 (Heparin Inj) 5,000 units Q8H SQ 03/11/17 13:00 03/14/17 11:16 Miscellaneous Information 1 Q361D XX 03/11/17 11:30 03/11/17 11:30 (Chlorhexidine 2% Cloth) 3 pack Taper DAILY@04 TOP 03/12/17 04:00 03/08/18 03:59 03/12/17 03:03 (Chlorhexidine 2% Cloth) 3 pack UNSCH PRN TOP 03/11/17 11:30 (Levemir Inj) 4 units Q12HR SQ 03/12/17 09:00 03/14/17 08:13 (Norvasc) 10 mg DAILY PO 03/12/17 09:45 03/14/17 08:12 (Aspirin Chew) 81 mg DAILY CHEW 03/12/17 09:45 03/14/17 08:12 (Imdur) 30 mg DAILY PO 03/12/17 09:45 03/14/17 08:12 (Lopressor) 50 mg BID PO 03/12/17 09:45 03/14/17 08:12 (Pravachol) 40 mg DAILY PO 03/12/17 09:45 03/14/17 08:13 (Dakin'S 0.25% Soln) 500 ml BID TOPICAL 03/12/17 21:00 03/14/17 08:13 (Pepcid Inj) 10 mg Q12HR IV PUSH 03/13/17 09:00 03/14/17 08:13 (D50w (Vial) Inj) 25 ml UNSCH PRN IV PUSH 03/13/17 17:45 Glucagon 1 mg 1 mg UNSCH PRN OTHER 03/13/17 17:45 (NS 1000 ml Inj) 1,000 ml @ 125 mls/hr Q8H IV 03/13/17 18:53 03/14/17 08:15 (Reglan Inj) 5 mg TIDAC IV PUSH 03/14/17 08:00 03/14/17 11:15 (Neurontin) 100 mg TID PO 03/14/17 09:00 03/14/17 11:15 ([place] 5-325 Mg) 1 tab Q4H PRN PO 03/13/17 21:00 ([place] 7.5-325 Mg) 1 tab Q4H PRN PO 03/13/17 21:00 (Morphine Inj) 2 mg Q3H PRN IV PUSH 03/13/17 21:00 03/14/17 04:17 Vancomycin HCl 125 mg 125 mg QID PO 03/14/17 13:00 03/14/17 11:16 (KCl 20 Meq Premix Inj) 100 ml @ 50 mls/hr ONCE ONCE IV 03/14/17 15:00 03/14/17 16:59 03/14/17 14:47 Urinary Catheter: Yes Assessment to: Remove Date of Removal: Mar 14, 2017 A/P Problem List: (1) Nausea & vomiting ICD Code: R11.2 Status: Acute (2) Lactic acid acidosis ICD Code: E87.2 Status: Chronic (3) Anemia ICD Code: D64.9 Status: Chronic (4) COPD (chronic obstructive pulmonary disease) ICD Code: J44.9 Status: Chronic (5) HTN (hypertension) ICD Code: I10 Status: Chronic (6) IDDM (insulin dependent diabetes mellitus) ICD Code: E11.9 Status: Chronic (7) Hypothermia ICD Code: T68.XXXA Status: Resolved (8) Sepsis ICD Code: A41.9 Status: Acute (9) Metabolic acidosis ICD Code: E87.2 Status: Resolved (10) DKA (diabetic ketoacidoses) ICD Code: E13.10 Status: Resolved (11) Dog bite of multiple sites of right lower extremity ICD Code: S81.851A Status: Chronic (12) Hypertension ICD Code: I10 Status: Chronic (13) Leukocytosis ICD Code: D72.829 Status: Acute (14) CONOR (acute kidney injury) ICD Code: N17.9 Status: Acute (15) Diarrhea ICD Code: R19.7 Status: Acute (16) CAD (coronary artery disease) ICD Code: I25.10 Status: Chronic Assessment and Plan 66-year-old female with: -Sepsis: +Leukocytosis, tachycardia. Suspect source C.difficile colitis, see below. Blood cultures with NGTD. Afebrile. Continue abx treatment for Cdiff. Monitor CBC. -C.difficile Colitis: pt with multiple episodes of diarrhea, Cdiff + on 03/13. Infectious disease consulted. Started oral vanco 125mg po q6h [id number] (stop date 03/28). Monitor BMs. Monitor BMP. Diet as tolerated. I discussed with Dr. Blue. -S/p DKA - still on D5 IVF, Accu-cheks 300, will change IVF to NS at 100 ml/hr. -Right lower extremity wound s/p dog bite previous admission, had wound vac on at home (placed 03/02), now dressing changes per plastic. Concern for wound infection on admission, no wound culture. S/p plastic eval with Dr. Moore who felt wound did not appear infected. DC meropenem IV per ID/-d/w Dr. Blue ( previous hospitalization grew resistant organism). Patient has leukocytosis but downtrending. Blood cultures NGTD. UA, cxr neg. Check prealbumin level to assess nutrition. Would refer to wound care clinic as outpatient, she will likely benefit from hyperbaric oxygen therapy. -Nausea and vomiting - due to colitis? vs gastroparesis. much improved. abd exam benign. Will start reglan IV scheduled AC. Clear liquid diet. Consult GI if persists. Patient with 1 episode vomiting today, tolerating diet. -Type 2 DM, uncontrolled - consult conservation educator. cont levemir 4 units sq q 12 hr, to hold if not taking meals or glucose<120. SSI low novolog AC, HS, 03: 00. -Hypernatremia, hypovolemic - NS 125 ml/hr, repeat BMP shows continued hypernatremia Na 150. Monitor for fluid overload with hx CHF. -CONOR - improving, nonoliguric, cont IVF, DC philippe today 03/14. Renal function continues to improve, Cr 1.03. Avoid nephrotoxins. -Anemia of chronic illness, hb improved s/p transfusion, monitor CBC, Hgb 7.8. -Severe metabolic acidosis, improved. -Acute metabolic encephalopathy - resolved. -Diabetic Peripheral neuropathy - started neurontin 100 mg Po BID. lortab prn for pain. -COPD/Asthma-without acute exacerbation. Duo nebs every 6 hours scheduled, every 2 hours when necessary, O2 via NC as needed. -CAD, history 3 stents, C in 2014-cont metoprolol 50 mg twice a day, aspirin 81 mg/day Isordil. resume acei when kidney function improved. -CHF-last known echo 2014 with preserved EF, repeat echo to eval LV function. -Hypertension-improved control. cont Norvasc 10 mg/day, metoprolol 50 mg twice a day, aspirin 81 mg/day Isordil resumed -GERD-cont Pepcid 20 mg twice a day IV until PO intake better then change to PO route. DVT Prophylaxis-Heparin 5000 SQ Written by Bruna Sauceda, acting as scribe for Dr. Prabhakar on 03/14/17 at 14: 40. This note was transcribed by [email or web address]. Ashley, Dr. Uzma Prabhakar personally performed the history, physical exam, and medical decision making; and confirmed the accuracy of the information in the transcribed note, and made several corrections. Authenticated by Dr. Uzma Prabhakar on 03/14/17 at 16:28. Attending Statement This note was transcribed by [email or web address]. Ashley, Dr. Uzma Prabhakar personally performed the history, physical exam, and medical decision making; and confirmed the accuracy of the information in the transcribed note. Authenticated by Dr. Umza Prabhakar on 03/14/17 at 16:26. Problem Qualifiers (1) Hypothermia: Qualified Code: T68.XXXA - Hypothermia, initial encounter (2) Sepsis: Qualified Code: A41.9 - Sepsis, due to unspecified organism (3) DKA (diabetic ketoacidoses): Qualified Code: E13.10 - Diabetic ketoacidosis without coma associated with other specified diabetes mellitus (4) Dog bite of multiple sites of right lower extremity: Qualified Code: S81.851D - Dog bite of multiple sites of right lower extremity , subsequent encounter (5) CAD (coronary artery disease): Qualified Code: I25.10 - Coronary artery disease involving [place] coronary artery of [place] heart without angina pectoris Bruna Sauceda PA-C Mar 14, 2017 15:24 Uzma Prabhakar MD Mar 14, 2017 16:28
[2017-03-15] VITALS (9 sets, daily range): BP systolic 127–173; BP diastolic 63–81; PULSE 71–94; RESP 16–20; TEMP 97.2–98.6; O2SAT 92–98
[2017-03-15] MEDS: ACETAMINOPHEN/HYDROcodone 325 MG/7.5 MG TAB PO PRN ×3 (02:09→22:19)
[2017-03-15] MEDS: SODIUM CHLOR 0.9% 1000 ML INJ 1,000 ML IV SCH ×3 (02:21→22:11)
[2017-03-15] MEDS: RESP: ALBUTEROL 2.5 MG/IPRATROPIUM 0.5 MG NEB (SCH) INH ×2 (03:37→09:41)
[2017-03-15] MEDS: CHLORHEXIDINE GLUCONATE 2 % 1 PACK (2 CLOTHS) TOP SCH (04:00)
[2017-03-15] MEDS: HEPARIN SODIUM - SQ 10,000 UNITS/ML VIAL SQ SCH ×3 (05:31→22:13)
[2017-03-15 06:13] LABS: AUTOMATED NEUTROPHIL # 7.5 TH/MM3 (1.8-7.7); BASOPHIL % 0.1 % (0.0-2.0); HEMO FLAGS DIFF FINAL; LYMPH % 11.1 % (9.0-44.0); MEAN CELL VOLUME 87.5 FL (80.0-100.0); MEAN CORPUSCULAR HEMOGLOBIN 29.5 PG (27.0-34.0); MEAN CORPUSCULAR HGB CONC 33.7 % (32.0-36.0); MONO % 3.6 % (0.0-8.0); NEUT % 85.2 % (16.0-70.0); PLATELET COUNT 144 TH/MM3 (150-450); RED BLOOD COUNT 2.62 MIL/MM3 (4.00-5.30); RED CELL DISTRIBUTION WIDTH 15.2 % (11.6-17.2); WHITE BLOOD COUNT 8.8 TH/MM3 (4.0-11.0)
[2017-03-15] MEDS: INSULIN ASPART SUPPLEMENTAL SCALE SQ SCH ×4 (06:19→21:00)
[2017-03-15 06:30] LABS: BICARBONATE 23.1 MEQ/L (21.0-32.0); MAGNESIUM 1.5 MG/DL (1.5-2.5); POTASSIUM 3.6 MEQ/L (3.5-5.1)
[2017-03-15] MEDS: METOPROLOL TARTRATE 50 MG TAB PO SCH ×2 (08:37→22:14)
[2017-03-15] MEDS: GABAPENTIN 100 MG CAP PO SCH ×3 (08:37→17:15)
[2017-03-15] MEDS: VANCOMYCIN 500 MG VIAL (FOR ORAL USE ONLY) PO SCH ×4 (08:37→22:14)
[2017-03-15] MEDS: ISOSORBIDE MONONITRATE 30 MG TAB PO SCH (08:37)
[2017-03-15] MEDS: PRAVASTATIN SOD 40 MG TAB PO SCH (08:38)
[2017-03-15] MEDS: METOCLOPRAMIDE HCL 10 MG/2 ML VIAL IV PUSH SCH ×3 (08:39→17:15)
[2017-03-15] MEDS: FAMOTIDINE 20 MG/2 ML VIAL IV PUSH SCH (08:39)
[2017-03-15] MEDS: SODIUM CHLORIDE 0.9% FLUSH 10 ML FLUSH IV FLUSH SCH ×2 (08:44→22:11)
[2017-03-15] MEDS: SODIUM HYPOCHLORITE 0.25% 500 ML BTL TOPICAL SCH ×2 (08:47→22:15)
[2017-03-15] MEDS: INSULIN DETEMIR 100 UNITS/ML VIAL SQ SCH ×2 (08:48→22:13)
[2017-03-15] MEDS: ASPIRIN 81 MG CHEW TAB CHEW SCH (08:54)
--- NOTE | 2017-03-15 12:40 | PD.POD.CON ---
Patient Intake Chief Complaint Nonhealing wounds right leg Consult Requested by Dr. Craig Reason for Consult Evaluation and treatment of right leg wounds Primary Care Physician NICHOLAS Claire History of Present Illness Amputation is a 66-year-old diabetic female who over a month ago was split by her dog. She had surgical repair which sloughed. She underwent VAC therapy. She has exposed necrotic tendon of the left leg. I was asked to see the patient for possible wound care as well as follow-up in the wound center. Coded Allergies: Darvon (Verified Allergy, Mild, RASH, 03/11/17) *MDRO Multi-Drug Resistant Organism (Verified Adverse Reaction, Unknown, ) 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 Preferred Language to Discuss: Turkmen Barriers to Learning: None Teaching Method: Discussion Vital Signs Date Time Temp Pulse Resp B/P Pulse Ox O2 Delivery O2 Flow Rate FiO2 03/15/17 09:45 97 03/15/17 08:00 75 03/15/17 08:00 98.5 71 20 165/72 95 03/15/17 04:00 98.1 94 20 173/81 96 03/15/17 00:00 98.6 71 16 157/65 92 03/14/17 20:52 97 21 03/14/17 20:00 98.6 75 18 142/65 94 03/14/17 16:00 98.5 80 18 169/69 93 Pain scale used: 0-10 numeric scale Pain score: 2 Medications Current Medications Sodium Chloride (NS 1000 ml Inj) 1,000 ml @ 2,000 mls/hr Q30M ONCE IV Last administered on 03/11/17 09:35; Start 03/11/17 at 09:09; Stop 03/11/17 at 09:38 ; Status DC Sodium Chloride (NS Flush) 2 ml UNSCH PRN IVF FLUSH AFTER USING IV ACCESS; Start 03/11/17 at 09:15; Stop 03/11/17 at 12:57; Status DC Insulin Human Regular 10 units 10 units ONCE ONCE IV PUSH Last administered on 03/11/17 10:13; Start 03/11/17 at 10:00; Stop 03/11/17 at 10:05; Status DC Sodium Chloride 1,000 ml @ 999 mls/hr BOLUS ONCE IV Last administered on 03/11 10:44; Start 03/11/17 at 10:00; Stop 03/11/17 at 11:00; Status DC Piperacillin Sod/ Tazobactam Sod 100 ml @ 200 mls/hr ONCE ONCE IV Last administered on 03/11/17 10:51; Start 03/11/17 at 10:45; Stop 03/11/17 at 11:14 ; Status DC Vancomycin HCl/ Sodium Chloride (Vancomycin Inj/ NS 250 ml Inj) 250 ml @ 250 mls/hr ONCE ONCE IV Last administered on 03/11/17 11:08; Start 03/11/17 at 10 :45; Stop 03/11/17 at 11:44; Status DC Dextrose (D50w (Vial) Inj) 25 ml UNSCH PRN IV PUSH SEE LABEL COMMENTS; Start at 10:45; Stop 03/11/17 at 12:56; Status DC Miscellaneous Information 1 1 ONCE ONCE XX Last administered on 03/11/17 10: 45; Start 03/11/17 at 10:45; Stop 03/11/17 at 10:46; Status DC Sodium Bicarbonate 154 meq/Sodium Chloride 1,000 ml @ 0 mls/hr Q0M IV Last administered on 03/11/17 18:36; Start 03/11/17 at 10:39 Insulin Human Regular/Sodium Chloride (NovoLIN R (IV INFUSION)/NS Inj) 100 ml @ 0 mls/hr TITRATE IV Last administered on 03/11/17 12:08; Start 03/11/17 at 11: 00; Stop 03/11/17 at 12:59; Status DC Dextrose (D50w (Vial) Inj) 25 ml UNSCH PRN IV PUSH SEE LABEL COMMENTS; Start at 11:00; Stop 03/12/17 at 10:05; Status DC Sodium Chloride (NS Flush) 2 ml UNSCH PRN IV FLUSH FLUSH AFTER USING IV ACCESS ; Start 03/11/17 at 11:30 Sodium Chloride (NS Flush) 2 ml BID IV FLUSH Last administered on 03/15/17 08: 44; Start 03/11/17 at 21:00 Acetaminophen (Tylenol) 650 mg Q6H PRN PO PAIN 1-6 AND/OR FEVER >101F Last administered on 03/12/17 22:29; Start 03/11/17 at 11:30 Pantoprazole Sodium (Protonix Inj) 40 mg DAILY IV Last administered on 08:26; Start 03/12/17 at 09:00; Stop 03/12/17 at 10:02; Status DC Ondansetron HCl (Zofran Inj) 4 mg Q6H PRN IV NAUSEA OR VOMITING Last administered on 03/14/17 21:38; Start 03/11/17 at 11:30 Bisacodyl (Dulcolax Supp) 10 mg DAILY PRN RECTAL CONSTIPATION; Start 03/11/17 at 11:30 Albuterol/ Ipratropium (Duoneb Neb) 1 ampule Q6HR NEB INH Last administered on 03/15/17 09:41; Start 03/11/17 at 16:00 Albuterol/ Ipratropium (Duoneb Neb) 1 ampule Q2HR NEB PRN INH WHEEZING; Start 03/11/17 at 11:30 Heparin Sodium (Porcine) (Heparin Inj) 5,000 units Q8H SQ Last administered on 03/15/17 05:31; Start 03/11/17 at 13:00 Miscellaneous Information 1 Q361D XX Last administered on 03/11/17 11:30; Start 03/11/17 at 11:30 Chlorhexidine Gluconate (Chlorhexidine 2% Cloth) 3 pack Taper DAILY@04 TOP Last administered on 03/12/17 03:03; Start 03/12/17 at 04:00; Stop 03/08/18 at 03:59 Chlorhexidine Gluconate 3 pack 3 pack UNSCH PRN TOP HYGIENIC CARE; Start at 11:30 Aztreonam 1000 mg/ Sodium Chloride 100 ml @ 200 mls/hr Q8H IV Last administered on 03/11/17 14:36; Start 03/11/17 at 13:00; Stop 03/11/17 at 15:25 ; Status DC Metronidazole 100 ml @ 100 mls/hr Q8H IV Last administered on 03/11/17 14:36 ; Start 03/11/17 at 14:00; Stop 03/11/17 at 15:25; Status DC Pharmacy Profile Note 0 ml @ 0 mls/hr UNSCH OTHER ; Start 03/11/17 at 11:30; Stop 03/11/17 at 15:25; Status DC Sodium Chloride 1,000 ml @ 250 mls/hr Q4H IV Last administered on 03/11/17 14 :23; Start 03/11/17 at 12:30; Stop 03/13/17 at 17:50; Status DC Dextrose/Sodium Chloride (D5W-NS 1000 ml Inj) 1,000 ml @ 200 mls/hr Q5H IV Last administered on 03/13/17 14:30; Start 03/11/17 at 12:30; Stop 03/13/17 at 17:50; Status DC Insulin Human Regular 6.8 units 6.8 units BOLUS ONCE IV PUSH Last administered on 03/11/17 12:47; Start 03/11/17 at 12:30; Stop 03/11/17 at 12:31 ; Status DC Insulin Human Regular 100 units/ Sodium Chloride 100 ml @ 0 mls/hr TITRATE IV Last administered on 03/11/17 23:29; Start 03/11/17 at 11:45; Stop 03/12/17 at 05:03; Status DC Potassium Chloride 100 ml @ 100 mls/hr Q1H PRN IV SEE LABEL COMMENTS Last administered on 03/11/17 19:50; Start 03/11/17 at 11:45; Stop 03/13/17 at 17:50 ; Status DC Potassium Chloride 100 ml @ 50 mls/hr Q2H PRN IV SEE LABEL COMMENTS; Start at 11:45; Stop 03/13/17 at 17:51; Status DC Potassium Chloride 100 ml @ 100 mls/hr Q1H PRN IV SEE LABEL COMMENTS Last administered on 03/11/17 23:40; Start 03/11/17 at 11:45; Stop 03/13/17 at 17:51 ; Status DC Potassium Chloride 100 ml @ 100 mls/hr Q1H PRN IV SEE LABEL COMMENTS; Start at 11:45; Stop 03/13/17 at 17:51; Status DC Potassium Chloride 100 ml @ 50 mls/hr Q2H PRN IV SEE LABEL COMMENTS; Start at 11:45; Stop 03/13/17 at 17:51; Status DC Potassium Chloride 100 ml @ 50 mls/hr Q2H PRN IV SEE LABEL COMMENTS; Start at 11:45; Stop 03/13/17 at 17:51; Status DC Potassium Chloride 100 ml @ 50 mls/hr Q2H PRN IV SEE LABEL COMMENTS; Start at 11:45; Stop 03/13/17 at 17:51; Status DC Potassium Chloride (KCl 20 Meq Premix Inj) 100 ml @ 50 mls/hr Q2H PRN IV SEE LABEL COMMENTS; Start 03/11/17 at 11:45; Stop 03/13/17 at 17:51; Status DC Sodium Bicarbonate (Sodium Bicarbonate 8.4% Inj) 100 meq UNSCH PRN IV SEE LABEL COMMENTS; Start 03/11/17 at 11:45; Stop 03/13/17 at 17:51; Status DC Sodium Bicarbonate 50 meq 50 meq UNSCH PRN IV SEE LABEL COMMENTS; Start at 11:45; Stop 03/11/17 at 18:18; Status DC Sodium Phosphate/ Sodium Chloride (Sodium Phosphate Inj/NS Inj) 105 ml @ 25 mls /hr UNSCH PRN IV SEE LABEL COMMENTS; Start 03/11/17 at 11:45; Stop 03/13/17 at 17:51; Status DC Sodium Bicarbonate (Sodium Bicarbonate 8.4% Inj) 100 meq ONCE ONCE IV PUSH Last administered on 03/11/17 13:14; Start 03/11/17 at 12:45; Stop 03/11/17 at 12:55; Status DC Sodium Bicarbonate (Sodium Bicarbonate 8.4% Inj) 100 meq ONCE ONCE IV PUSH Last administered on 03/11/17 15:03; Start 03/11/17 at 14:45; Stop 03/11/17 at 14:46; Status DC Miscellaneous Medication (ASP Crit: Path resist to other, cult proven) 1 UNSCH X1 PRN .XX PHARMACY DOCUMENTATION; Start 03/11/17 at 15:30; Stop 03/12/17 at 15 :29; Status DC Miscellaneous Medication 1 1 UNSCH X1 PRN XX PHARMACY DOCUMENTATION; Start at 15:30; Stop 03/12/17 at 15:29; Status DC Meropenem/Sodium Chloride (Merrem Inj/NS Inj) 100 ml @ 200 mls/hr Q8H IV Last administered on 03/14/17 08:12; Start 03/11/17 at 16:00; Stop 03/14/17 at 10:37 ; Status DC Sodium Bicarbonate (Sodium Bicarbonate 8.4% Inj) 50 meq UNSCH PRN IV SEE LABEL COMMENTS; Start 03/11/17 at 18:17; Stop 03/13/17 at 17:56; Status DC Insulin Detemir (Levemir Inj) 4 units Q12HR SQ Last administered on 03/15/17 08:48; Start 03/12/17 at 09:00 Dextrose (D50w (Vial) Inj) 25 ml UNSCH PRN IV PUSH HYPOGLYCEMIA-SEE COMMENTS; Start 03/12/17 at 05:15; Stop 03/13/17 at 17:54; Status DC Glucagon (Glucagon Inj) 1 mg UNSCH PRN OTHER HYPOGLYCEMIA-SEE COMMENTS; Start 03/12/17 at 05:15; Stop 03/13/17 at 17:54; Status DC Insulin Human Regular (NovoLIN R SUPPLEMENTAL SCALE) 1 ACHS SLIDING SCALE SQ Last administered on 03/13/17 16:27; Start 03/12/17 at 07:00; Stop 03/13/17 at 17:54; Status DC Amlodipine Besylate (Norvasc) 10 mg DAILY PO Last administered on 03/15/17 08: 38; Start 03/12/17 at 09:45 Aspirin (Aspirin Chew) 81 mg DAILY CHEW Last administered on 03/15/17 08:54; Start 03/12/17 at 09:45 Isosorbide Mononitrate (Imdur) 30 mg DAILY PO Last administered on 03/15/17 08 :37; Start 03/12/17 at 09:45 Metoprolol Tartrate (Lopressor) 50 mg BID PO Last administered on 03/15/17 08: 37; Start 03/12/17 at 09:45 Pravastatin Sodium (Pravachol) 40 mg DAILY PO Last administered on 03/15/17 08 :38; Start 03/12/17 at 09:45 Acetaminophen (Ofirmev Inj) 1,000 mg Q6H PRN IV PAIN SCALE 7 TO 10 Last administered on 03/13/17 05:46; Start 03/12/17 at 10:00; Stop 03/13/17 at 10:00 ; Status DC Famotidine (Pepcid Inj) 20 mg Q12HR IV PUSH Last administered on 03/12/17 20: 50; Start 03/12/17 at 10:15; Stop 03/13/17 at 08:21; Status DC Metoprolol Tartrate (Lopressor Inj) 2.5 mg Q6H PRN IV PUSH SBP>160, DBP>90 Last administered on 03/12/17 10:45; Start 03/12/17 at 10:30; Stop 03/13/17 at 17:56; Status DC Sodium Hypochlorite (Dakin'S 0.25% Soln) 500 ml BID TOPICAL Last administered on 03/15/17 08:47; Start 03/12/17 at 21:00 Famotidine (Pepcid Inj) 10 mg Q12HR IV PUSH Last administered on 03/15/17 08: 39; Start 03/13/17 at 09:00 Dextrose (D50w (Vial) Inj) 25 ml UNSCH PRN IV PUSH HYPOGLYCEMIA-SEE COMMENTS; Start 03/13/17 at 17:45 Glucagon (Glucagon Inj) 1 mg UNSCH PRN OTHER HYPOGLYCEMIA-SEE COMMENTS; Start 03/13/17 at 17:45 Insulin Aspart 1 1 ACHS SLIDING SCALE SQ Last administered on 03/15/17 11:00 ; Start 03/13/17 at 21:00 Sodium Chloride (NS 1000 ml Inj) 1,000 ml @ 125 mls/hr Q8H IV Last administered on 03/15/17 02:21; Start 03/13/17 at 18:53 Metoclopramide HCl (Reglan Inj) 5 mg TIDAC IV PUSH Last administered on 11:50; Start 03/14/17 at 08:00 Alteplase, Recombinant (Cathflo Activase Inj) 2 mg ONCE ONCE INTRACATH Last administered on 03/13/17 21:48; Start 03/13/17 at 20:00; Stop 03/13/17 at 20:01 ; Status DC Gabapentin (Neurontin) 100 mg TID PO Last administered on 03/15/17 08:37; Start 03/14/17 at 09:00 Acetaminophen/ Hydrocodone Bitart (Jones 5-325 Mg) 1 tab Q4H PRN PO leg pain 1 -5; Start 03/13/17 at 21:00 Acetaminophen/ Hydrocodone Bitart (Jones 7.5-325 Mg) 1 tab Q4H PRN PO leg pain 6-10 Last administered on 03/15/17 06:56; Start 03/13/17 at 21:00 Morphine Sulfate (Morphine Inj) 2 mg Q3H PRN IV PUSH pain if vomiting/NPO Last administered on 03/14/17 04:17; Start 03/13/17 at 21:00 Metronidazole (Flagyl) 500 mg Q8H PO ; Start 03/14/17 at 12:00; Stop 03/14/17 at 12:00; Status DC Vancomycin HCl 125 mg 125 mg QID PO Last administered on 03/15/17 08:37; Start 03/14/17 at 13:00; Stop 03/28/17 at 12:59 Potassium Chloride (KCl 20 Meq Premix Inj) 100 ml @ 50 mls/hr ONCE ONCE IV Last administered on 03/14/17 14:47; Start 03/14/17 at 15:00; Stop 03/14/17 at 16:59; Status DC Past, Family & Social History Past Medical History HEENT: REPORTS HX OF: Recurrent sinusitis Endocrine: REPORTS HX OF: Diabetes mellitus Respiratory: REPORTS HX OF: Allergies/hay fever, Asthma, COPD Cardiovascular: REPORTS HX OF: Atrial fibrillation, Heart valve disease, Hypertension Genitourinary: REPORTS HX OF: Kidney disease, Past UTI Age at menarche: 13 Age at menopause: 45 history: Live births: 2 Musculoskeletal: REPORTS HX OF: Osteoporosis Psychiatric: REPORTS HX OF: Anxiety Disabilities: REPORTS HX OF: Hearing deficit, Vision deficit Past Surgical History HEENT: REPORTS HX OF: Tonsillectomy (1972) Cardiovascular: REPORTS HX OF: Angioplasty (08/2015), Coronary stent (08/2015) Gynecologic: REPORTS HX OF: delivery (1983), Hysterectomy (1993) Neurologic: REPORTS HX OF: Spinal surgery (-1979 never decompression) Breast: DENIES HX OF: Mastectomy, bilateral, Mastectomy, left, Mastectomy, right Family Medical History Patient History: FH: colon cancer G8 FATHER, , Age:40 FH: muscular dystrophy G8 MOTHER Substance Use Substance use: Denies use Review of Systems Constitutional: COMPLAINS OF: Pain Cardiovascular: COMPLAINS OF: Heart Disease, Swelling legs / ankles Psychiatric: COMPLAINS OF: Depression/anxiety Exam-Podiatry Constitutional General appearance: comfortable Nutritional status: overweight Orientation: alert and oriented x3 Dermatological Exam Skin Temp - Right: Within Normal Limits Skin Texture - Right: Within Normal Limits Skin Elasticity - Right: Within Normal Limits Skin Tugor - Right: Within Normal Limits Hair Growth - Right: Within Normal Limits Pigmentation - Right: Within Normal Limits Skin Temp - Left: Within Normal Limits Skin Texture - Left: Within Normal Limits Skin Elasticity - Left: Within Normal Limits Skin Tugor - Left: Within Normal Limits Hair Growth - Left: Within Normal Limits Pigmentation - Left: Within Normal Limits Ulcers: Location/Measurements A general ulceration right medial leg with exposed necrotic tendon. Quite a bit of slough in the wound with marked fibrin formation. [place] granulation tissue. No ascending cellulitis or purulence seen. Vascular/Lymphatic Exam R Dorsails Pedis: Palpable (diminished) L Dorsails Pedis: Palpable (diminished) R Posterior Tibial: Palpable (diminished) L Posterior Tibial: Palpable (diminished) Neurologic Exam Present on right: Tingling, Paraesthesia Present on left: Tingling, Hyperesthesia Muscle Strength Dorsiflexion (Right): Normal Plantarflexion (Right): Normal Inversion (Right): Normal Eversion (Right): Normal Digital (Right): Normal Dorsiflexion (Left): Normal Plantarflexion (Left): Normal Inversion (Left): Normal Eversion (Left): Normal Digital (Left): Normal Foot Range of Motion Dorsiflexion (Right): Normal Plantarflexion (Right): Normal Inversion (Right): Normal Eversion (Right): Normal Digital (Right): Normal Dorsiflexion (Left): Normal Plantarflexion (Left): Normal Inversion (Left): Normal Eversion (Left): Normal Digital (Left): Normal Lab and Radiology Results Laboratory Laboratory Tests Test 03/14/17 03/15/17 05:30 05:35 White Blood Count 11.1 TH/MM3 8.8 TH/MM3 Red Blood Count 2.70 MIL/MM3 2.62 MIL/MM3 Hemoglobin 7.8 GM/DL 7.7 GM/DL Hematocrit 23.5 % 23.0 % Mean Corpuscular Volume 86.9 FL 87.5 FL Mean Corpuscular Hemoglobin 28.9 PG 29.5 PG Mean Corpuscular Hemoglobin 33.3 % 33.7 % Concent Red Cell Distribution Width 15.2 % 15.2 % Platelet Count 168 TH/MM3 144 TH/MM3 Mean Platelet Volume 8.4 FL 8.9 FL Neutrophils (%) (Auto) 86.4 % 85.2 % Lymphocytes (%) (Auto) 9.1 % 11.1 % Monocytes (%) (Auto) 3.7 % 3.6 % Eosinophils (%) (Auto) 0.0 % 0.0 % Basophils (%) (Auto) 0.8 % 0.1 % Neutrophils # (Auto) 9.6 TH/MM3 7.5 TH/MM3 Lymphocytes # (Auto) 1.0 TH/MM3 1.0 TH/MM3 Monocytes # (Auto) 0.4 TH/MM3 0.3 TH/MM3 Eosinophils # (Auto) 0.0 TH/MM3 0.0 TH/MM3 Basophils # (Auto) 0.1 TH/MM3 0.0 TH/MM3 CBC Comment DIFF FINAL DIFF FINAL Differential Comment Laboratory Tests Test 03/14/17 03/15/17 05:30 05:35 Sodium Level 150 MEQ/L 148 MEQ/L Potassium Level 3.3 MEQ/L 3.6 MEQ/L Chloride Level 120 MEQ/L 119 MEQ/L Carbon Dioxide Level 22.6 MEQ/L 23.1 MEQ/L Anion Gap 7 MEQ/L 6 MEQ/L Blood Urea Nitrogen 14 MG/DL 15 MG/DL Creatinine 1.03 MG/DL 1.03 MG/DL Estimat Glomerular Filtration 54 ML/MIN 54 ML/MIN Rate Random Glucose 98 MG/DL 183 MG/DL Calcium Level 7.9 MG/DL 7.8 MG/DL Magnesium Level 1.5 MG/DL Radiology Last Impressions Chest X-Ray 03/11/17 0000 Signed Impressions: Service Date/Time: February 10:04 - CONCLUSION: Normal examination. Left IJ central venous catheter in excellent position. Bradley Doe MD Assessment/Plan Problem List: (1) Dog bite of multiple sites of right lower extremity Status: Chronic (2) Diabetes mellitus with peripheral vascular disease Status: Chronic (3) Atherosclerosis of right lower extremity with ulceration Status: Acute Additional Plans & Procedures PLAN: Patient would benefit from a OR debridement. Patient was scheduled for the OR for tomorrow afternoon at 4:00 for debridement of wound. Preop orders written. Nothing by mouth after midnight. Ordered CTA with runoff of the lower extremity to evaluate her circulation. Once patient has had adequate debridement she can be discharged and followed in the wound center. Because she has exposed tendon of the leg and the wound is been present for over 30 days she may qualify for hyperbaric oxygen therapy. Problem Qualifiers (1) Dog bite of multiple sites of right lower extremity: Qualified Code: S81.851D - Dog bite of multiple sites of right lower extremity , subsequent encounter (2) Atherosclerosis of right lower extremity with ulceration: Qualified Code: I70.232 - Atherosclerosis of [place] artery of right lower extremity with ulceration of calf Je Read DPM Mar 15, 2017 12:40
--- NOTE | 2017-03-15 14:53 | HHI.IDPN ---
Subjective Subjective Remarks is a 66 y/o CF with PMHx of Diabetes on Insulin at home, h/o dog bite in January 2017, s/p debridement of RLE wound by in February 2017. Patient was initially admitted in January 2017 for dog bite by her own dog. She reports animal control was called and the dog was put to rest. She still has two other dogs in her home. No other family members were harmed/bitten. Upon review of records it appears patient was treated with IV Unasyn. She was discharged home on oral augmentin. Patient was then readmitted for pain in RLE and found to have necrotic ulcers in RLE at site of dog bite. Patient underwent evaluation by Plastics and underwent debridement of RLE wounds and was ? on wound vac. Patient reports being under the care of wound care RNs. Patient now is admitted to when she presented to the hospital and was noted to have tachypnea 30's and tachycardia 130's, blood glucose levels were obtained noted to be 500 mg/deciliter. The patient was alert and oriented 3. Upon admission to the ED, the patient received 3 L normal saline, insulin infusion initiated. Laboratory studies were obtained, patient was noted to be in DKA. DKA protocol initiated. Critical care medicine's consult for management. At the time of my evaluation patient is in the IMC. Alert, maintaining airway, answering questions appropriately. UO ok. On IV Insulin gtt per CCM. ID consulted for eval and mment of infected RLE ulcers s.p dog bite with h/o MDR E.coli. Overnight events reviewed. No fever No rash No diarrhea CX negative Feels slightly better today. seen by podiatry. Antibiotics Meropenem IV Lines Line sites with no e.o infection. Past Medical History reviewed. Allergies: Coded Allergies: Darvon (Verified Allergy, Mild, RASH, 03/11/17) *MDRO Multi-Drug Resistant Organism (Verified Adverse Reaction, Unknown, ) 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 Objective . Vital Signs Date Time Temp Pulse Resp B/P Pulse Ox O2 Delivery O2 Flow Rate FiO2 03/15/17 12:00 97.2 72 20 151/67 95 03/15/17 09:45 97 03/15/17 08:00 75 03/15/17 08:00 98.5 71 20 165/72 95 03/15/17 04:00 98.1 94 20 173/81 96 03/15/17 00:00 98.6 71 16 157/65 92 03/14/17 20:52 97 21 03/14/17 20:00 98.6 75 18 142/65 94 03/14/17 16:00 98.5 80 18 169/69 93 03/14/17 03/14/17 03/15/17 15:00 23:00 07:00 Intake Total 720 ml 240 ml 0 ml Output Total 900 ml Balance -180 ml 240 ml 0 ml Intake Oral 720 ml 240 ml 0 ml Output Urine Total 900 ml # Voids 1 0 # Bowel Movements 1 1 0 . Laboratory Tests Test 03/14/17 03/15/17 05:30 05:35 White Blood Count 11.1 TH/MM3 8.8 TH/MM3 Red Blood Count 2.70 MIL/MM3 2.62 MIL/MM3 Hemoglobin 7.8 GM/DL 7.7 GM/DL Hematocrit 23.5 % 23.0 % Mean Corpuscular Volume 86.9 FL 87.5 FL Mean Corpuscular Hemoglobin 28.9 PG 29.5 PG Mean Corpuscular Hemoglobin 33.3 % 33.7 % Concent Red Cell Distribution Width 15.2 % 15.2 % Platelet Count 168 TH/MM3 144 TH/MM3 Mean Platelet Volume 8.4 FL 8.9 FL Neutrophils (%) (Auto) 86.4 % 85.2 % Lymphocytes (%) (Auto) 9.1 % 11.1 % Monocytes (%) (Auto) 3.7 % 3.6 % Eosinophils (%) (Auto) 0.0 % 0.0 % Basophils (%) (Auto) 0.8 % 0.1 % Neutrophils # (Auto) 9.6 TH/MM3 7.5 TH/MM3 Lymphocytes # (Auto) 1.0 TH/MM3 1.0 TH/MM3 Monocytes # (Auto) 0.4 TH/MM3 0.3 TH/MM3 Eosinophils # (Auto) 0.0 TH/MM3 0.0 TH/MM3 Basophils # (Auto) 0.1 TH/MM3 0.0 TH/MM3 CBC Comment DIFF FINAL DIFF FINAL Differential Comment Laboratory Tests Test 03/14/17 03/15/17 05:30 05:35 Sodium Level 150 MEQ/L 148 MEQ/L Potassium Level 3.3 MEQ/L 3.6 MEQ/L Chloride Level 120 MEQ/L 119 MEQ/L Carbon Dioxide Level 22.6 MEQ/L 23.1 MEQ/L Anion Gap 7 MEQ/L 6 MEQ/L Blood Urea Nitrogen 14 MG/DL 15 MG/DL Creatinine 1.03 MG/DL 1.03 MG/DL Estimat Glomerular Filtration 54 ML/MIN 54 ML/MIN Rate Random Glucose 98 MG/DL 183 MG/DL Calcium Level 7.9 MG/DL 7.8 MG/DL Magnesium Level 1.5 MG/DL Imaging Last Impressions Chest X-Ray 03/11/17 0000 Signed Impressions: Service Date/Time: February 10:04 - CONCLUSION: Normal examination. Left IJ central venous catheter in excellent position. Bradley Doe MD Physical Exam GENERAL: This is a well-nourished, well-developed patient, in no apparent distress. SKIN: No rashes, ecchymoses or lesions. Cool and dry. HEAD: Atraumatic. Normocephalic. No temporal or scalp tenderness. EYES: Pupils equal round and reactive. Extraocular motions intact. No scleral icterus. No injection or drainage. ENT: Nose without bleeding, purulent drainage or septal hematoma. Throat without erythema, tonsillar hypertrophy or exudate. Uvula midline. Airway patent. NECK: Trachea midline. Supple, nontender, no meningeal signs. CARDIOVASCULAR: RRR. RESPIRATORY: Clear to auscultation. Breath sounds equal bilaterally. No wheezes , rales, or rhonchi. GASTROINTESTINAL: Abdomen soft, non-tender, nondistended. No guarding. MUSCULOSKELETAL: RLE with large 8x8 cm approx cm ulcer with areas where tendons are exposed. Also eschar noted at several areas. NEUROLOGICAL: Awake and alert. Grossly non focal Psych: cooperative IV line sites with no e.o infection/. CL new ok site. Assessment & Plan Remarks Sepsis present on admission controlled. Likely due to Cdiff present on admission as patient had nausea and ? diarrhea prior to admission per d.w pts daughter. RLE chronic ulcer. tendons exposed. Does not appear infected. h/o dog bite with secondary infection with MDR E.coli in RLE at site of dog bite. Cdiff positive diarrhea DM2 uncontrolled, with DKA on admission. Acute renal failure with underlying CKD: prerenal, sepsis, CKD secondary to DM. Anemia ? GI blood loss vs hemodilution. Recs Continue Oral vanco will need 2 weeks of antibiotics. NO antibiotics for ulcer. Likely colonized, Agree with debridement of eschar, wound care, wound clinic follow up: karina Jimenez and . Will follow prn. Dori Blue MD Mar 15, 2017 14:53
[2017-03-15] MEDS ORDERED: IOHEXOL 350 MG/ML 10 ML VIAL (for RAD DIAG) IV ONE (15:34)
--- NOTE | 2017-03-15 18:07 | RADRPT ---
EXAM DATE/TIME: 03/15/2017 15:34 [place] COMPARISON: CT ABDOMEN & PELVIS W/O CONTRAST, August 09, 2016, 22:18. INDICATIONS : Occlusion right lower leg. IV CONTRAST: 100 cc Omnipaque 350 (iohexol) IV RADIATION DOSE: 11.62 CTDIvol (mGy) MEDICAL HISTORY : Hypertension. Arthritis. SURGICAL HISTORY : None. ENCOUNTER: Subsequent ACUITY: 2 days PAIN SCALE: 5/10 LOCATION: Right lower leg TECHNIQUE: Volumetric scanning was performed using a multi-row detector CT scanner. The data was post processed with a variety of visualization algorithms including full volume maximum intensity pr ojection, multi-planar sliding thin slab reformation, curved planar reformation, and surface renderin g techniques. Using automated exposure control and adjustment of the mA and/or kV according to patie nt size, radiation dose was kept as low as reasonably achievable to obtain optimal diagnostic quality images. FINDINGS: ABDOMINAL AORTA: There is atherosclerotic calcification in the abdominal aorta, especially distally just above the bifurcation but the vessel is normal in caliber throughout its length without aneurysm al disease or significant stenosis. There is a single right with main and accessory left renal arter y. Calcification centrally on the right does not result in significant stenosis. All there are patent . Mesenteric vessels are patent. PELVIS: Dense atherosclerotic calcification of the iliac artery bilaterally, especially centrally. However, the iliacs remain patent. RIGHT LOWER EXTREMITY: Calcification of the common femoral but the vessel is patent. Profunda and SF A are patent as well. SFA show some mild irregularity but it is patent down to the popliteal. There is a mild stenosis in the above knee popliteal just below the adductor hiatus. Popliteal remains pa tent down to the trifurcation vessels with the dominant runoff via the posterior tibial. Segmental hi gh-grade stenosis and occlusions are seen in the anterior and peroneal vessels. LEFT LOWER EXTREMITY: The common femoral again shows calcification but is patent. Profunda is paten t. The proximal SFA shows a mild, less than 50% stenosis but the SFA remains patent down to the popl iteal. Popliteal is patent down to the trifurcation vessels with the dominant runoff via the posteri or tibial and peroneal with segmental occlusion of the anterior tibial. MISCELLANEOUS: There is a 2.5 cm predominantly fat-containing lesion just to the right of the esoph unruly and posterior to the upper hepatic IVC. 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 There are mod erate sized bilateral pleural effusions with concomitant atelectatic changes. In addition, there is d iffuse anasarca as well as free fluid in the deep pelvis all suggesting right heart insufficiency. Below the diaphragm, there are faintly enhancing nodular densities in the left hepatic lobe and poste rior right hepatic lobe which are nonspecific and may represent hemangiomas. There is a stable 3.7 c m mixed density lesion centered in the region of the left adrenal gland which contains calcification and fat density and may represent an old myelolipoma which has previously hemorrhaged. A small amoun t of air is seen in the urinary bladder which may represent recent instrumentation. CONCLUSION: 1. Inflow is patent down to the common femorals bilaterally despite regional calcification. 2. In the right lower extremity, there is some atherosclerotic irregularity at the adductor hiatus bu t the profunda, SFA and popliteal are patent down to the trifurcation with dominant runoff via the po sterior tibial. 3. In the left lower extremity, some minimal narrowing of the proximal SFA but the common femoral, pr ofunda, SFA and popliteal are patent down to the trifurcation with dominant runoff via the posterior tibial and peroneal. Anterior tibial occludes proximally. 4. Moderate sized bilateral pleural effusions with concomitant atelectatic changes. 5. 2.5 cm fat-containing lesion in the right lower lobe adjacent to the esophagus and posterior to th e intrahepatic IVC. 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 6. Mixed density 3.7 cm mass lesion associated with the left adrenal which contains calcium and fat a nd may represent a myelolipoma which has previously bleed. 7. Diffuse anasarca with fluid in the deep pelvis and bilateral pleural effusions are suggesting righ t heart insufficiency. 8. Cortical scarring in the upper pole of the right kidney. 9. Nonspecific enhancing areas in the left and right hepatic lobes. These are overtly benign and may represent small hemangiomas. Preet Chavez MD on March 15, 2017 at 17:36 Board Certified Radiologist. This report was verified electronically.
--- NOTE | 2017-03-15 19:03 | HHI.PR ---
Subjective Remarks Pt feels much improved, glenna clear liquids, no n or vomiting. no abd pain. 2 bm reported. patient date she is feeling very weak and that even when she returned home from the hospital last time she had to have a lot of help getting up to 3 steps into her house. She does not think she will be able to return home. Her and daughter are looking to rent a house without steps. Patient would like to try regular consistency diet tonight. She is nothing by mouth after midnight for debridement tomorrow morning. Objective Vitals Vital Signs Date Time Temp Pulse Resp B/P Pulse Ox O2 Delivery O2 Flow Rate FiO2 03/15/17 16:00 98.4 88 20 127/63 94 03/15/17 12:00 97.2 72 20 151/67 95 03/15/17 09:45 97 03/15/17 08:00 75 03/15/17 08:00 98.5 71 20 165/72 95 03/15/17 04:00 98.1 94 20 173/81 96 03/15/17 00:00 98.6 71 16 157/65 92 03/14/17 20:52 97 21 03/14/17 20:00 98.6 75 18 142/65 94 I/O 03/14/17 03/14/17 03/14/17 03/15/17 03/15/17 03/15/17 07:00 15:00 23:00 07:00 15:00 23:00 Intake Total 689 ml 720 ml 240 ml 0 ml 720 ml Output Total 275 ml 900 ml 300 ml Balance 414 ml -180 ml 240 ml 0 ml 420 ml Intake Oral 720 ml 240 ml 0 ml 720 ml IV Total 689 ml Output Urine Total 275 ml 900 ml 300 ml # Voids 1 0 # Bowel Movements 1 1 0 0 Result Diagram: 03/15/17 0535 03/15/17 0535 Objective Remarks GENERAL: Well-nourished, well-developed pleasant CF patient. SKIN: Warm and dry. HEAD: Normocephalic. EYES: No scleral icterus. No injection or drainage. NECK: Supple, trachea midline. No JVD or lymphadenopathy. CARDIOVASCULAR: Regular rate and rhythm without murmurs, gallops, or rubs. RESPIRATORY: Breath sounds equal bilaterally. No accessory muscle use. GASTROINTESTINAL: Abdomen soft, non-tender, nondistended. EXTREMITIES: No cyanosis, or edema. right lower extremity medial aspect with large deep wound estimatition 12 by 4 cm (to muscle depth) wound, necrotic tendon exposed, with small amount of necrosis, no bone exposed. NEUROLOGICAL: Awake, alert, and oriented x 3. Non-focal. Date of Removal: Mar 14, 2017 A/P Problem List: (1) Clostridium difficile colitis ICD Code: A04.7 Status: Acute (2) Nausea & vomiting ICD Code: R11.2 Status: Resolved (3) Lactic acid acidosis ICD Code: E87.2 Status: Chronic (4) Anemia ICD Code: D64.9 Status: Chronic (5) COPD (chronic obstructive pulmonary disease) ICD Code: J44.9 Status: Chronic (6) HTN (hypertension) ICD Code: I10 Status: Chronic (7) IDDM (insulin dependent diabetes mellitus) ICD Code: E11.9 Status: Chronic (8) Hypothermia ICD Code: T68.XXXA Status: Resolved (9) Sepsis ICD Code: A41.9 Status: Acute (10) Metabolic acidosis ICD Code: E87.2 Status: Resolved (11) DKA (diabetic ketoacidoses) ICD Code: E13.10 Status: Resolved (12) Dog bite of multiple sites of right lower extremity ICD Code: S81.851A Status: Chronic (13) Hypertension ICD Code: I10 Status: Chronic (14) Leukocytosis ICD Code: D72.829 Status: Acute (15) CONOR (acute kidney injury) ICD Code: N17.9 Status: Acute (16) Diarrhea ICD Code: R19.7 Status: Acute (17) CAD (coronary artery disease) ICD Code: I25.10 Status: Chronic (18) Anemia, iron deficiency ICD Code: D50.9 Status: Chronic Assessment and Plan 66-year-old female with: -C.difficile Colitis: pt with multiple episodes of diarrhea, Cdiff + on 03/13. Infectious disease consulted. Started oral vanco 125mg po q6h [id number] (stop date 03/28). Monitor BMs. Monitor BMP. Diet as tolerated. I discussed with Dr. Blue. -now clinically improved, 2 loose stools, no abd pain, leukocytosis resolved , no further n/v. -Severe right lower extremity wound s/p dog bite previous admission, had wound vac on at home (placed 03/02), now dressing changes per plastic. Concern for wound infection on admission, no wound culture. S/p plastic eval with Dr. Moore who felt wound did not appear infected. Blood cultures NGTD. UA, cxr neg. Check prealbumin level to assess nutrition (pending). Optimize glucose control and nutrition. I consulted and discussed with Dr. Read/podiatry for outpatient wound management, consideration to hyperbaric oxygen therapy. For debridement tomorrow to promote wound healing. Check CTA aorta with runoff to eval PVD. -Type 2 DM, uncontrolled - HbA1c in november was 8%, will recheck. s/p diabetic education today. cont levemir 4 units sq q 12 hr, to hold if not taking meals or glucose<120. SSI low novolog AC, HS, 03:00. -Hypernatremia, hypovolemic - improving. Decrease NS 125->70 ml/hr, repeat BMP in a.m. Monitor for fluid overload with hx CHF (echo 03/13 shows preserved EF). -CONOR - improving, nonoliguric, cont IVF, DC'ed philippe 03/14. Cr ~1. Avoid nephrotoxins. -Anemia of fe deficiency (possible underlying myelodysplastic disorder as per Dr. Schmidt's outpatient evaluation), also of chronic illness, hb improved s/p transfusion, monitor CBC, Hgb 7.5 today - recheck in a.m., may need transfusion. -CAD, history stents, [facility] in 2014 with stent to the LAD & RCA per Dr. Reddy -cont metoprolol 50 mg twice a day, aspirin 81 mg/day Isordil. Check with cardiology if effient needs to be resumed. -COPD/Asthma-without acute exacerbation. Does not use home O2. Duo nebs QID scheduled, every 2 hours when necessary, O2 via NC as needed. -CHF, chronic diastolic. Echo 03/13 shows preserved EF, large left pleural effusion. -Large left pleural effusion - not currently symptomatic, however patient not ambulatory currently. may require thoracentesis if symptomatic or require O2. -Hypertension-improved control. cont Norvasc 10 mg/day, metoprolol 50 mg twice a day, aspirin 81 mg/day Isordil resumed. resume lisinopril tomorrow evening. -Generalized weakness - continue PT. weakness exacerbated by RLE wound. even prior to admission patient was unable to navigate the 3 steps to her house. She may require SNF for a time. Optimally she could be DC'ed to home environment to start hyperbaric O2 as soon as possible. -Severe metabolic acidosis, resolved. -Acute metabolic encephalopathy - resolved. -Diabetic Peripheral neuropathy - started on neurontin 100 mg Po BID. lortab prn for pain. -Nausea and vomiting -now resolved. -Sepsis due to c dif colitis, sepsis resolved. -Diabetic ketoacidosis, resolved. Was likely triggered by the colitis. -GERD-resume zantac PO. DVT Prophylaxis-Heparin 5000 SQ Problem Qualifiers (1) Hypothermia: Qualified Code: T68.XXXA - Hypothermia, initial encounter (2) Sepsis: Qualified Code: A41.9 - Sepsis, due to unspecified organism (3) DKA (diabetic ketoacidoses): Qualified Code: E13.10 - Diabetic ketoacidosis without coma associated with other specified diabetes mellitus (4) Dog bite of multiple sites of right lower extremity: Qualified Code: S81.851D - Dog bite of multiple sites of right lower extremity , subsequent encounter (5) CAD (coronary artery disease): Qualified Code: I25.10 - Coronary artery disease involving [place] coronary artery of [place] heart without angina pectoris Uzma Prabhakar MD Mar 15, 2017 19:03
--- NOTE | 2017-03-15 19:03 | EC ---
Study Study Date:03/15/2017 STUDY CONCLUSIONS SUMMARY - Left ventricle: The cavity size was normal. Systolic function was normal. The estimated ejection fraction was in the range of 55% to 60%. Wall motion was normal; there were no regional wall motion abnormalities. - Mitral valve: Mild regurgitation. - Pericardium, extracardiac: There was a large left pleural effusion. If LV function is below 40, please consider prescribing an ACEI or ARB or document rationale for non-use. PROCEDURE DATA STUDY STATUS: Elective. Procedure: Transthoracic echocardiography. Image quality was good. Scanning was performed from the parasternal, apical, and subcostal acoustic windows. Study completion: The patient tolerated the procedure well. Transthoracic echocardiography. M-mode, complete 2D, complete spectral Doppler, and color Doppler. Height: Height: 64in. Weight: Weight: 164.7lb. Body mass index: BMI: 28.3kg/m^2. Body surface area: BSA: 1.8m^2. Patient status: Inpatient. CARDIAC ANATOMY LEFT VENTRICLE: The cavity size was normal. Systolic function was normal. The estimated ejection fraction was in the range of 55% to 60%. Wall motion was normal; there were no regional wall motion abnormalities. AORTIC VALVE: [place]. Doppler: There was no stenosis. No significant regurgitation. Valve area: 1.81cm^2 (Vmax). Indexed valve area: 1.01cm^2/m^2 (Vmax). Peak gradient: 12mm Hg (S). MITRAL VALVE: The valve appears to be grossly normal. Doppler: There was no evidence for stenosis. Mild regurgitation. Valve area by pressure half-time: 3.44cm^2. Indexed valve area by pressure half-time: 1.91cm^2/m^2. Mean gradient: 3mm Hg (D). Peak gradient: 7mm Hg (D). LEFT ATRIUM: The atrium was mildly dilated. ATRIAL SEPTUM: There was increased thickness of the septum, consistent with lipomatous hypertrophy. RIGHT VENTRICLE: The cavity size was normal. Systolic function was normal. PULMONIC VALVE: Not well visualized. Doppler: There was no evidence for stenosis. No significant regurgitation. TRICUSPID VALVE: The valve appears to be grossly normal. Doppler: There was no evidence for stenosis. Trace regurgitation. Peak gradient: 12mm Hg (D). Pleura: There was a large left pleural effusion. Patient weight: 164.7lb _Ejection fraction:_ 65-75% _Fractional shortening:_ 32% up to 5Kg 5-11.5Kg 11.6-22.9Kg 23-45Kg 45-57Kg Aortic Root 7-13 <17 13-22 17-27 17-27 LA diam 6-13 <23 24-38 33-47 37-40 RVID 10-17 7-15 7-15 7-18 8-17 LVIDd 12-22 <32 24-38 33-47 37-40 LVPW 2-4 3-6 5-7 6-8 7-8 IVS 2-4 3-6 5-7 6-8 7-8 BASIC MEASUREMENTS ADULT NORMAL Left ventricle LV internal dimension, ED, chordal *59 mm 43-52 level, PLAX LV internal dimension, ES, chordal 36.9 mm 23-38 level, PLAX Fractional shortening, chordal level, 37 % >29 PLAX LV posterior wall thickness, ED 9.61 mm IVS/LVPW ratio, ED 1.02 <1.3 Volume, ED, MOD, 1-plane 89 ml Volume, ES, MOD, 1-plane 38 ml Ejection fraction, MOD, 1-plane 57 % Stroke volume, MOD, 1-plane 51 ml Volume index, ED, MOD, 1-plane 49 ml/m^2 Volume index, ES, MOD, 1-plane 21 ml/m^2 Stroke index, MOD, 1-plane 28.3 ml/m^2 Ventricular septum Septal thickness, ED 9.78 mm Aortic valve Leaflet separation 19 mm 15-26 Aorta Root diameter, ED 29 mm Left atrium Anterior-posterior dimension 47 mm Anterior-posterior dimension index *2.61 cm/m^2 <2.2 Right ventricle RV internal dimension, ED, PLAX 26.4 mm 19-38 BASIC MEASUREMENTS ADULT NORMAL Aortic valve Leaflet separation 19 mm 15-26 Aorta Root diameter, ED 29 mm 20-37 DOPPLER MEASUREMENTS ADULT NORMAL Aortic valve Peak velocity, S 170 cm/s VTI, S 33.7 cm Peak gradient, S 12 mm Hg Valve area, Vmax 1.81 cm^2 Valve area index, Vmax 1.01 cm^2/m^2 Mitral valve Peak E-wave velocity 97.7 cm/s Peak A-wave velocity 91.8 cm/s Mean velocity, D 84.2 cm/s Pressure half-time 64 ms Mean gradient, D 3 mm Hg Peak gradient, D 7 mm Hg Peak E/A ratio 1.1 Valve area, pressure half-time 3.44 cm^2 Valve area index, pressure half-time 1.91 cm^2/m^2 Tricuspid valve Peak gradient, D 12 mm Hg Maximal inflow velocity 176 cm/s Systemic veins Estimated CVP 10 mm Hg Pulmonic valve Peak velocity, S 96.4 cm/s LEGEND: Mean values are shown as u=mean value. Asterisk (*) elias values outside specified normal range. Prepared and signed by Vin Kaur [id number]
[2017-03-15 19:15] LABS: INTERNATIONAL NORMALIZED RATIO 0.9 RATIO; PROTHROMBIN TIME - PATIENT 10.2 SEC (9.8-11.6)
[2017-03-15] MEDS: RESP: ALBUTEROL 2.5 MG/IPRATROPIUM 0.5 MG NEB (PRN) INH (20:56)
[2017-03-15] MEDS ORDERED: NON-FORMULARY DRUG (Ranitidine 150 MG) PO SCH (21:15)
[2017-03-15] MEDS ORDERED: NON-FORMULARY DRUG (Ranitidine 150 MG) PO PRN (21:15)
[2017-03-16] VITALS (8 sets, daily range): BP systolic 119–166; BP diastolic 60–86; PULSE 67–89; RESP 18–20; TEMP 97.7–98.4; O2SAT 96–99
[2017-03-16] MEDS: CHLORHEXIDINE GLUCONATE 2 % 1 PACK (2 CLOTHS) TOP SCH (04:00)
[2017-03-16] MEDS: HEPARIN SODIUM - SQ 10,000 UNITS/ML VIAL SQ SCH ×2 (04:13→12:00)
[2017-03-16] MEDS: ACETAMINOPHEN/HYDROcodone 325 MG/7.5 MG TAB PO PRN ×3 (04:13→22:10)
[2017-03-16] MEDS: INSULIN ASPART SUPPLEMENTAL SCALE SQ SCH ×4 (06:25→21:53)
[2017-03-16] MEDS: SODIUM CHLOR 0.9% 1000 ML INJ 1,000 ML IV SCH (06:25)
[2017-03-16 06:36] LABS: ANION GAP 7 MEQ/L (5-15); BICARBONATE 22.2 MEQ/L (21.0-32.0); BLOOD UREA NITROGEN 15 MG/DL (7-18); CHLORIDE 117 MEQ/L (98-107); GLOMERULAR FILTRATION RATE 49 ML/MIN (>89); POTASSIUM 3.5 MEQ/L (3.5-5.1); SODIUM (NA) 146 MEQ/L (136-145)
[2017-03-16 07:52] LABS: AUTOMATED NEUTROPHIL # 5.9 TH/MM3 (1.8-7.7); BASOPHIL % 0.2 % (0.0-2.0); EOSINOPHIL % 0.1 % (0.0-4.0); HEMATOCRIT 22.7 % (35.0-46.0); HEMO FLAGS DIFF FINAL; LYMPH % 13.2 % (9.0-44.0); MEAN CELL VOLUME 87.2 FL (80.0-100.0); MEAN CORPUSCULAR HEMOGLOBIN 29.5 PG (27.0-34.0); MEAN CORPUSCULAR HGB CONC 33.8 % (32.0-36.0); MONO % 5.5 % (0.0-8.0); PLATELET COUNT 171 TH/MM3 (150-450); RED BLOOD COUNT 2.61 MIL/MM3 (4.00-5.30); RED CELL DISTRIBUTION WIDTH 15.1 % (11.6-17.2); WHITE BLOOD COUNT 7.2 TH/MM3 (4.0-11.0)
[2017-03-16] MEDS: RESP: ALBUTEROL 2.5 MG/IPRATROPIUM 0.5 MG NEB (SCH) NEB ×4 (08:00→20:28)
[2017-03-16] MEDS: INSULIN DETEMIR 100 UNITS/ML VIAL SQ SCH ×2 (08:43→21:53)
[2017-03-16] MEDS: GABAPENTIN 100 MG CAP PO SCH ×3 (08:55→18:01)
[2017-03-16] MEDS: ISOSORBIDE MONONITRATE 30 MG TAB PO SCH (08:55)
[2017-03-16] MEDS: PRAVASTATIN SOD 40 MG TAB PO SCH (08:55)
[2017-03-16] MEDS: METOCLOPRAMIDE HCL 10 MG/2 ML VIAL IV PUSH SCH ×3 (08:55→16:03)
[2017-03-16] MEDS: METOPROLOL TARTRATE 50 MG TAB PO SCH ×2 (08:55→21:54)
[2017-03-16] MEDS: FAMOTIDINE 20 MG TAB PO SCH (08:55)
[2017-03-16] MEDS ORDERED: LISINOPRIL 20 MG TAB PO SCH (09:00)
[2017-03-16] MEDS: ASPIRIN 81 MG CHEW TAB CHEW SCH (09:00)
[2017-03-16] MEDS: VANCOMYCIN 500 MG VIAL (FOR ORAL USE ONLY) PO SCH ×4 (09:08→21:54)
[2017-03-16] MEDS: SODIUM CHLORIDE 0.9% FLUSH 10 ML FLUSH IV FLUSH SCH ×3 (09:11→21:52)
[2017-03-16] MEDS: SODIUM HYPOCHLORITE 0.25% 500 ML BTL TOPICAL SCH ×2 (09:11→21:00)
[2017-03-16] MEDS ORDERED: ONDANSETRON HCL 4 MG/2 ML VIAL IV PUSH ONE (12:00)
[2017-03-16] MEDS ORDERED: PROPOFOL 200 MG/20 ML AMP IV ONE (12:00)
[2017-03-16] MEDS ORDERED: BUPIVACAINE HCL PF 0.5% 30 ML VIAL ONE (15:59)
[2017-03-16] MEDS ORDERED: SODIUM CHLORIDE 0.9% FLUSH 10 ML FLUSH IV FLUSH PRN (17:00)
[2017-03-16] MEDS ORDERED: Post-op Orders (for Pharmacy) MISC XX ONE (17:00)
[2017-03-16] MEDS ORDERED: NALOXONE HCL 0.4 MG/ML AMP IV PRN (17:00)
--- NOTE | 2017-03-16 17:03 | PD.OP ---
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 The right foot was prepped and draped in the usual sterile manner. After the appropriate timeout was obtained attention was directed to the right medial calf. It was noted that the patient had a full-thickness ulceration and down to and including muscle measuring approximately 8 x 10 cm. Using a versa jet the ulceration was debrided full-thickness removing all necrotic tissue and muscle from the wound. Debrided tissue was sent for culture and sensitivity. Good bleeding granulating base was noted following debridement. Sponge and instrument count was noted to be correct. Should be noted that the wound was anesthetized with 20 cc of 0.5% Marcaine plain for postoperative analgesia. Wound was dressed with Optifoam Gentle AG, ABDs pads and Nereyda roll. Estimated blood loss was less than 30 cc. Patient tolerated the procedures and anesthesia well and left the OR to PACU in apparent satisfactory condition with all vital signs stable and neurovascular status intact. Je Read DPM Mar 16, 2017 17:03
[2017-03-16] MEDS ORDERED: DO NOT ADM ANY ANTICOAGULANT DRUGS PRN (17:08)
[2017-03-16 17:28] LABS: HEMOGLOBIN A1a 1.2 %; HEMOGLOBIN A1b 1.9 %; HEMOGLOBIN Ao 82.7 %; HEMOGLOBIN LA1C 2.4 %; HEMOGLOBIN P3 5.9 %
[2017-03-16] MEDS ORDERED: diphenhydrAMINE HCL 25 MG CAP PO PRN (20:00)
[2017-03-16] MEDS ORDERED: SODIUM CHLOR 0.9% 250 ML INJ 250 ML IV ONE (20:00)
[2017-03-16] MEDS ORDERED: FUROSEMIDE 20 MG/2 ML VIAL IV ONE (20:00)
--- NOTE | 2017-03-16 20:01 | HHI.PR ---
Subjective Remarks Follow up for the conditions noted in a/p. pt s/p debridement of RLE wound today with dr. read - postop now in room patient has had a lot of bleeding, dr. read has been notified. bleeding has slowed per RN report. will transfuse 2 untis pRBCs as hb was only 7.7 today , pt agreeable. glucose trends have been in the 100s, BP stable. patient ate regular food at dinner, did well with that. pt denies hx of CHF. Objective Vitals Vital Signs Date Time Temp Pulse Resp B/P Pulse Ox O2 Delivery O2 Flow Rate FiO2 03/16/17 17:45 80 16 158/87 97 Nasal Cannula 2 03/16/17 17:30 74 16 165/86 96 Nasal Cannula 2 03/16/17 17:15 74 16 161/83 98 Nasal Cannula 2 03/16/17 17:05 98.6 60 16 144/72 96 Nasal Cannula 2 03/16/17 12:00 98.2 67 20 133/86 97 03/16/17 08:08 97 21 03/16/17 08:00 98.1 72 20 166/77 96 03/16/17 07:56 87 03/16/17 04:00 98.2 87 19 166/78 97 03/16/17 00:00 98.4 80 19 149/67 97 03/15/17 20:56 98 21 03/15/17 20:19 72 03/15/17 20:00 98.2 73 18 157/67 96 I/O 03/15/17 03/15/17 03/15/17 03/16/17 03/16/17 03/16/17 07:00 15:00 23:00 07:00 15:00 23:00 Intake Total 0 ml 720 ml 240 ml 0 ml 3251 ml 20 ml Output Total 300 ml Balance 0 ml 420 ml 240 ml 0 ml 3251 ml 20 ml Intake Oral 0 ml 720 ml 240 ml 0 ml 0 ml IV Total 3251 ml 20 ml Output Urine Total 300 ml # Voids 0 0 1 2 # Bowel Movements 0 0 0 0 0 Result Diagram: 03/16/17 0735 03/16/17 0555 Objective Remarks GENERAL: Well-nourished, well-developed pleasant CF patient. SKIN: Warm and dry. HEAD: Normocephalic. EYES: No scleral icterus. No injection or drainage. NECK: Supple, trachea midline. No JVD or lymphadenopathy. CARDIOVASCULAR: Regular rate and rhythm without murmurs, gallops, or rubs. RESPIRATORY: Breath sounds equal bilaterally. No accessory muscle use. GASTROINTESTINAL: Abdomen soft, non-tender, nondistended. EXTREMITIES: No cyanosis, or edema. right lower extremity wrapped in gauze with significant blood strikethrough and has soaked surround blanket. NEUROLOGICAL: Awake, alert, and oriented x 3. Non-focal. Date of Removal: Mar 14, 2017 A/P Problem List: (1) Clostridium difficile colitis ICD Code: A04.7 Status: Acute (2) Nausea & vomiting ICD Code: R11.2 Status: Resolved (3) Lactic acid acidosis ICD Code: E87.2 Status: Chronic (4) Anemia ICD Code: D64.9 Status: Chronic (5) COPD (chronic obstructive pulmonary disease) ICD Code: J44.9 Status: Chronic (6) HTN (hypertension) ICD Code: I10 Status: Chronic (7) IDDM (insulin dependent diabetes mellitus) ICD Code: E11.9 Status: Chronic (8) Hypothermia ICD Code: T68.XXXA Status: Resolved (9) Sepsis ICD Code: A41.9 Status: Acute (10) Metabolic acidosis ICD Code: E87.2 Status: Resolved (11) DKA (diabetic ketoacidoses) ICD Code: E13.10 Status: Resolved (12) Dog bite of multiple sites of right lower extremity ICD Code: S81.851A Status: Chronic (13) Hypertension ICD Code: I10 Status: Chronic (14) Leukocytosis ICD Code: D72.829 Status: Acute (15) CONOR (acute kidney injury) ICD Code: N17.9 Status: Acute (16) Diarrhea ICD Code: R19.7 Status: Acute (17) CAD (coronary artery disease) ICD Code: I25.10 Status: Chronic (18) Anemia, iron deficiency ICD Code: D50.9 Status: Chronic Assessment and Plan 66-year-old female with: -C.difficile Colitis: pt with multiple episodes of diarrhea, Cdiff + on 03/13. Infectious disease consulted. Started oral vanco 125mg po q6h y1bceps (stop date 03/28). Monitor BMs. Monitor BMP. Diet as tolerated. I discussed with Dr. Blue previously. -now clinically improved, 2 loose stools, no abd pain, leukocytosis resolved , no further n/v. -Severe right lower extremity wound s/p dog bite previous admission, had wound vac on at home (placed 03/02), now dressing changes per plastic. Concern for wound infection on admission, no wound culture. S/p plastic eval with Dr. Moore who felt wound did not appear infected. Blood cultures NGTD. UA, cxr neg. Check prealbumin level to assess nutrition (pending). Optimize glucose control and nutrition. I consulted and discussed with Dr. Read/podiatry for outpatient wound management, consideration to hyperbaric oxygen therapy. s/ p OR debridement today to promote wound healing. CTA aorta with runoff noted - sufficient blood flow. -Type 2 DM, uncontrolled but improving trends - HbA1c in november was 8%, will recheck/pending. s/p diabetic education today. cont levemir 4 units sq q 12 hr, to hold if not taking meals or glucose<120. SSI low novolog AC, HS, 03:00. -Hypernatremia, hypovolemic - improving. Na 146 today, will HLIV as she now has good PO intake as has anasarca, likely d/t low albumin state. -CONOR - improving, nonoliguric, cont IVF, DC'ed philippe 03/14. Cr ~1. Avoid nephrotoxins. -Anemia of fe deficiency (possible underlying myelodysplastic disorder as per Dr. Schmidt's outpatient evaluation), also of chronic illness, hb improved s/p transfusion, monitor CBC, Hgb 7.7 today, d/t bleeding will transfuse 2 units pRBCs, give lasix 20 mg IV in between units. -CAD, history stents, [facility] in 2014 with stent to the LAD & RCA per Dr. Reddy -cont metoprolol 50 mg twice a day, aspirin 81 mg/day Isordil. Discussed with Dr. Reddy today/consulted to see if effient needs to be resumed , would avoid currently d/t bleeding. -COPD/Asthma-without acute exacerbation. Does not use home O2. Duo nebs QID scheduled, every 2 hours when necessary, O2 via NC as needed. consult pulmonology as well (pt does not follow with pulm). -CHF, chronic diastolic. Echo 03/13 shows preserved EF, large left pleural effusion. patient denies hx CHF. she has preserved EF. -Anasarca - suspect due to hypoalbuminemia. she has preserved EF, and no hx liver disease. consider diuresis with albumin. no significant pedal edema at this time, no resp compromise. -B/l plerual effusions, likely due to the anasarca. asymptomatic currently, consider thoracentesis. will consult pulmonogy (pt does not follow with inbound sales consultant). -Hypertension-improved control. cont Norvasc 10 mg/day, metoprolol 50 mg twice a day, aspirin 81 mg/day Isordil resumed. resume lisinopril tonight. -Generalized weakness - continue PT. weakness exacerbated by RLE wound. even prior to admission patient was unable to navigate the 3 steps to her house. Optimally she could be DC'ed to home environment to start hyperbaric O2 as soon as possible. her is currently building a wheelchair ramp. -Severe malnutrition - hypoalbuminemia d/t poor PO intake, prealbumin 13, will consult dietary for recs, patient encouraged to increase PO intake. -Severe metabolic acidosis, resolved. -Acute metabolic encephalopathy - resolved. -Diabetic Peripheral neuropathy - started on neurontin. lortab prn for pain. -Nausea and vomiting -now resolved. -Sepsis due to c dif colitis, sepsis resolved. -Diabetic ketoacidosis, resolved. Was likely triggered by the colitis. -GERD-resume zantac PO. DVT Prophylaxis-Heparin 5000 SQ - will hold for now due to bleeding. Problem Qualifiers (1) Hypothermia: Qualified Code: T68.XXXA - Hypothermia, initial encounter (2) Sepsis: Qualified Code: A41.9 - Sepsis, due to unspecified organism (3) DKA (diabetic ketoacidoses): Qualified Code: E13.10 - Diabetic ketoacidosis without coma associated with other specified diabetes mellitus (4) Dog bite of multiple sites of right lower extremity: Qualified Code: S81.851D - Dog bite of multiple sites of right lower extremity , subsequent encounter (5) CAD (coronary artery disease): Qualified Code: I25.10 - Coronary artery disease involving [place] coronary artery of [place] heart without angina pectoris Uzma Prabhakar MD Mar 16, 2017 20:00
[2017-03-16 20:33] LABS: HEMATOCRIT 21.6 % (35.0-46.0); REVIEW FLAG FINAL
--- NOTE | 2017-03-16 20:37 | MB ---
cc: REX ESCOBAR DATE OF CONSULTATION 03/16/2017 REASON FOR CONSULTATION Ms. Maynard is a 66-year-old white female with a history of coronary artery disease and multivessel coronary stenting in 2015. She was admitted on 03/11 with DKA and sepsis. She has not had any recent angina. She had surgery on her leg due to a dog bite. She had been aztreonam which has been now discontinued. PAST MEDICAL HISTORY Positive for: 1. Non-ST elevation myocardial infarction, multivessel stenting with stent placement to the LAD and right coronary artery in 08/2015. 2. Anemia. 3. Diabetes mellitus. 4. Chronic obstructive pulmonary disease. 5. History of hysterectomy. 6. Laminectomy. 7. Ganglion cyst. PAST SURGICAL HISTORY 1. section. 2. Trigger finger release. 3. Bilateral knee surgery. 4. Left ankle surgery. MEDICATIONS Include: 1. Aspirin. 2. Effient which is discontinued. 3. Folic acid. 4. Lisinopril. 5. Metoprolol. 6. Insulin. 7. Jocelyn-Colace. 9. Pravastatin. 10. Spironolactone. 11. Isosorbide mononitrate. 12. Nitroglycerine as needed. 13. B12. 14. Zinc. 15. Norvasc. 16. Levemir. 17. Levothyroxine. 18. Hydrocodone. 19. Acetaminophen. ALLERGIES DARVON. SOCIAL HISTORY The patient does not smoke but she used to smoke in the past. She does not drink alcohol. FAMILY HISTORY Negative for heart disease. REVIEW OF SYSTEMS Otherwise negative. PHYSICAL EXAMINATION VITAL SIGNS: Blood pressure 133/86, pulse 67 and regular. HEENT: Negative. 2+ carotid upstroke. No bruits. LUNGS: Clear. HEART: Regular with no murmur, gallop or rub. ABDOMEN: Soft. No bruits. EXTREMITIES: Without edema. 2+ distal pulses. Right lower extremity with wound after a dog bite. NEUROLOGICAL: Grossly nonfocal. EKG was reviewed and showed normal sinus rhythm, left axis, mild intraventricular conduction delay, nonspecific ST-T changes. LABORATORY DATA Hemoglobin 7.7. Potassium 3.5. Creatinine 1.1. DIAGNOSES 1. Coronary artery disease, history of multivessel stenting. 2. Diabetes mellitus. 3. Hypertension. 4. Clostridium difficile colitis. 5. Right lower extremity dog bite. DISPOSITION Ms. Maynard has been off of her Eliquis for surgery. I recommend to change her Eliquis to Plavix (clopidogrel) 75 milligrams daily after her surgery in addition to the baby aspirin. I recommend to continue aggressive modification of cardiac risk factors. I will follow her for cardiology during her hospitalization. I will see her back for followup in our office after discharge. MD MAGGIE Angel/SAMPSON /4:45 PM /8:01 PM MTDChris
[2017-03-16] MEDS: LISINOPRIL 20 MG TAB PO SCH (21:58)
[2017-03-17] VITALS (15 sets, daily range): BP systolic 128–166; BP diastolic 60–89; PULSE 65–87; RESP 16–18; TEMP 97.1–98.5; O2SAT 96–100
[2017-03-17] MEDS: CHLORHEXIDINE GLUCONATE 2 % 1 PACK (2 CLOTHS) TOP SCH (03:04)
[2017-03-17] MEDS: ACETAMINOPHEN/HYDROcodone 325 MG/7.5 MG TAB PO PRN ×3 (05:19→22:00)
[2017-03-17] MEDS: INSULIN ASPART SUPPLEMENTAL SCALE SQ SCH ×4 (06:42→22:00)
--- NOTE | 2017-03-17 08:23 | PD.POD ---
Subjective Podiatric Problems 90 cm ulceration through muscle right medial calf. Pain scale used: 0-10 numeric scale Pain score: 2 Remarks Patient is a 66-year-old female who received a dog bite and underwent debridement. Her wound was extremely deep with necrotic tendon and muscle. She was taken to the OR yesterday evening for debridement of the wound with culture and sensitivity. Received a call from the floor nurse about 7 PM last night the patient was bleeding through her bandage. Had her reinforce the bandage and noted a hemoglobin and hematocrit. Dr. Craig from medicine ordered 2 units of packed cells transfused. Patient without complaints or concerns this morning. Bleeding appears to have stopped. Past Med/Surg/Social History Past Medical History HEENT: REPORTS HX OF: Recurrent sinusitis Endocrine: REPORTS HX OF: Diabetes mellitus Respiratory: REPORTS HX OF: Allergies/hay fever, Asthma, COPD Cardiovascular: REPORTS HX OF: Atrial fibrillation, Heart valve disease, Hypertension Genitourinary: REPORTS HX OF: Kidney disease, Past UTI Age at menarche: 13 Age at menopause: 45 history: Live births: 2 Musculoskeletal: REPORTS HX OF: Osteoporosis Psychiatric: REPORTS HX OF: Anxiety Disabilities: REPORTS HX OF: Hearing deficit, Vision deficit Past Surgical History HEENT: REPORTS HX OF: Tonsillectomy (1972) Cardiovascular: REPORTS HX OF: Angioplasty (08/2015), Coronary stent (08/2015) Gynecologic: REPORTS HX OF: delivery (1983), Hysterectomy (1993) Neurologic: REPORTS HX OF: Spinal surgery (L-5 1979 never decompression) Breast: DENIES HX OF: Mastectomy, bilateral, Mastectomy, left, Mastectomy, right Social History Smoking Status: Former Smoker Review of Systems Constitutional: COMPLAINS OF: Fatigue Neurological: COMPLAINS OF: Changes in sensation Hematologic/Lymphatic: COMPLAINS OF: Anemia Objective Vital Signs Vital Signs Date Time Temp Pulse Resp B/P Pulse Ox O2 Delivery O2 Flow Rate FiO2 03/17/17 04:00 98.1 84 18 148/71 99 03/17/17 03:59 97.9 76 16 144/73 98 03/17/17 03:44 97.6 67 16 142/67 99 03/17/17 03:12 97.6 67 16 142/67 99 03/17/17 00:57 98.5 68 18 135/60 99 03/17/17 00:42 98.0 87 18 128/66 98 03/17/17 00:00 98.0 87 18 128/68 98 03/16/17 20:28 99 High Flow Nasal Cannula 2.00 03/16/17 20:00 97.7 88 18 119/60 98 03/16/17 17:45 80 16 158/87 97 Nasal Cannula 2 03/16/17 17:30 74 16 165/86 96 Nasal Cannula 2 03/16/17 17:15 74 16 161/83 98 Nasal Cannula 2 03/16/17 17:05 98.6 60 16 144/72 96 Nasal Cannula 2 03/16/17 12:00 98.2 67 20 133/86 97 Coded Allergies: Darvon (Verified Allergy, Mild, RASH, 03/11/17) *MDRO Multi-Drug Resistant Organism (Verified Adverse Reaction, Unknown, ) 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 Medications and IVs Current Medications Sodium Chloride (NS 1000 ml Inj) 1,000 ml @ 2,000 mls/hr Q30M ONCE IV Last administered on 03/11/17 09:35; Start 03/11/17 at 09:09; Stop 03/11/17 at 09:38 ; Status DC Sodium Chloride (NS Flush) 2 ml UNSCH PRN IVF FLUSH AFTER USING IV ACCESS; Start 03/11/17 at 09:15; Stop 03/11/17 at 12:57; Status DC Insulin Human Regular 10 units 10 units ONCE ONCE IV PUSH Last administered on 03/11/17 10:13; Start 03/11/17 at 10:00; Stop 03/11/17 at 10:05; Status DC Sodium Chloride 1,000 ml @ 999 mls/hr BOLUS ONCE IV Last administered on 03/11 10:44; Start 03/11/17 at 10:00; Stop 03/11/17 at 11:00; Status DC Piperacillin Sod/ Tazobactam Sod 100 ml @ 200 mls/hr ONCE ONCE IV Last administered on 03/11/17 10:51; Start 03/11/17 at 10:45; Stop 03/11/17 at 11:14 ; Status DC Vancomycin HCl/ Sodium Chloride (Vancomycin Inj/ NS 250 ml Inj) 250 ml @ 250 mls/hr ONCE ONCE IV Last administered on 03/11/17 11:08; Start 03/11/17 at 10 :45; Stop 03/11/17 at 11:44; Status DC Dextrose (D50w (Vial) Inj) 25 ml UNSCH PRN IV PUSH SEE LABEL COMMENTS; Start at 10:45; Stop 03/11/17 at 12:56; Status DC Miscellaneous Information 1 1 ONCE ONCE XX Last administered on 03/11/17 10: 45; Start 03/11/17 at 10:45; Stop 03/11/17 at 10:46; Status DC Sodium Bicarbonate 154 meq/Sodium Chloride 1,000 ml @ 0 mls/hr Q0M IV Last administered on 03/11/17 18:36; Start 03/11/17 at 10:39 Insulin Human Regular/Sodium Chloride (NovoLIN R (IV INFUSION)/NS Inj) 100 ml @ 0 mls/hr TITRATE IV Last administered on 03/11/17 12:08; Start 03/11/17 at 11: 00; Stop 03/11/17 at 12:59; Status DC Dextrose (D50w (Vial) Inj) 25 ml UNSCH PRN IV PUSH SEE LABEL COMMENTS; Start at 11:00; Stop 03/12/17 at 10:05; Status DC Sodium Chloride (NS Flush) 2 ml UNSCH PRN IV FLUSH FLUSH AFTER USING IV ACCESS ; Start 03/11/17 at 11:30 Sodium Chloride (NS Flush) 2 ml BID IV FLUSH Last administered on 03/16/17 21: 52; Start 03/11/17 at 21:00 Acetaminophen (Tylenol) 650 mg Q6H PRN PO PAIN 1-6 AND/OR FEVER >101F Last administered on 03/12/17 22:29; Start 03/11/17 at 11:30 Pantoprazole Sodium (Protonix Inj) 40 mg DAILY IV Last administered on 08:26; Start 03/12/17 at 09:00; Stop 03/12/17 at 10:02; Status DC Ondansetron HCl (Zofran Inj) 4 mg Q6H PRN IV NAUSEA OR VOMITING Last administered on 03/14/17 21:38; Start 03/11/17 at 11:30 Bisacodyl (Dulcolax Supp) 10 mg DAILY PRN RECTAL CONSTIPATION; Start 03/11/17 at 11:30 Albuterol/ Ipratropium (Duoneb Neb) 1 ampule Q6HR NEB INH Last administered on 03/15/17 09:41; Start 03/11/17 at 16:00; Stop 03/15/17 at 16:00; Status DC Albuterol/ Ipratropium (Duoneb Neb) 1 ampule Q2HR NEB PRN INH WHEEZING Last administered on 03/15/17 20:56; Start 03/11/17 at 11:30 Heparin Sodium (Porcine) (Heparin Inj) 5,000 units Q8H SQ Last administered on 03/16/17 04:13; Start 03/11/17 at 13:00; Status Hold Miscellaneous Information 1 [id number] Last administered on 03/11/17 11:30; Start 03/11/17 at 11:30 Chlorhexidine Gluconate (Chlorhexidine 2% Cloth) Taper DAILY@04 TOP Last administered on 03/12/17 03:03; Start 03/12/17 at 04:00; Stop 03/08/18 at 03:59 Chlorhexidine Gluconate 3 pack 3 pack UNSCH PRN TOP HYGIENIC CARE; Start at 11:30 Aztreonam 1000 mg/ Sodium Chloride 100 ml @ 200 mls/hr Q8H IV Last administered on 03/11/17 14:36; Start 03/11/17 at 13:00; Stop 03/11/17 at 15:25 ; Status DC Metronidazole 100 ml @ 100 mls/hr Q8H IV Last administered on 03/11/17 14:36 ; Start 03/11/17 at 14:00; Stop 03/11/17 at 15:25; Status DC Pharmacy Profile Note 0 ml @ 0 mls/hr UNSCH OTHER ; Start 03/11/17 at 11:30; Stop 03/11/17 at 15:25; Status DC Sodium Chloride 1,000 ml @ 250 mls/hr Q4H IV Last administered on 03/11/17 14 :23; Start 03/11/17 at 12:30; Stop 03/13/17 at 17:50; Status DC Dextrose/Sodium Chloride (D5W-NS 1000 ml Inj) 1,000 ml @ 200 mls/hr Q5H IV Last administered on 03/13/17 14:30; Start 03/11/17 at 12:30; Stop 03/13/17 at 17:50; Status DC Insulin Human Regular 6.8 units 6.8 units BOLUS ONCE IV PUSH Last administered on 03/11/17 12:47; Start 03/11/17 at 12:30; Stop 03/11/17 at 12:31 ; Status DC Insulin Human Regular 100 units/ Sodium Chloride 100 ml @ 0 mls/hr TITRATE IV Last administered on 03/11/17 23:29; Start 03/11/17 at 11:45; Stop 03/12/17 at 05:03; Status DC Potassium Chloride 100 ml @ 100 mls/hr Q1H PRN IV SEE LABEL COMMENTS Last administered on 03/11/17 19:50; Start 03/11/17 at 11:45; Stop 03/13/17 at 17:50 ; Status DC Potassium Chloride 100 ml @ 50 mls/hr Q2H PRN IV SEE LABEL COMMENTS; Start at 11:45; Stop 03/13/17 at 17:51; Status DC Potassium Chloride 100 ml @ 100 mls/hr Q1H PRN IV SEE LABEL COMMENTS Last administered on 03/11/17 23:40; Start 03/11/17 at 11:45; Stop 03/13/17 at 17:51 ; Status DC Potassium Chloride 100 ml @ 100 mls/hr Q1H PRN IV SEE LABEL COMMENTS; Start at 11:45; Stop 03/13/17 at 17:51; Status DC Potassium Chloride 100 ml @ 50 mls/hr Q2H PRN IV SEE LABEL COMMENTS; Start at 11:45; Stop 03/13/17 at 17:51; Status DC Potassium Chloride 100 ml @ 50 mls/hr Q2H PRN IV SEE LABEL COMMENTS; Start at 11:45; Stop 03/13/17 at 17:51; Status DC Potassium Chloride 100 ml @ 50 mls/hr Q2H PRN IV SEE LABEL COMMENTS; Start at 11:45; Stop 03/13/17 at 17:51; Status DC Potassium Chloride (KCl 20 Meq Premix Inj) 100 ml @ 50 mls/hr Q2H PRN IV SEE LABEL COMMENTS; Start 03/11/17 at 11:45; Stop 03/13/17 at 17:51; Status DC Sodium Bicarbonate (Sodium Bicarbonate 8.4% Inj) 100 meq UNSCH PRN IV SEE LABEL COMMENTS; Start 03/11/17 at 11:45; Stop 03/13/17 at 17:51; Status DC Sodium Bicarbonate 50 meq 50 meq UNSCH PRN IV SEE LABEL COMMENTS; Start at 11:45; Stop 03/11/17 at 18:18; Status DC Sodium Phosphate/ Sodium Chloride (Sodium Phosphate Inj/NS Inj) 105 ml @ 25 mls /hr UNSCH PRN IV SEE LABEL COMMENTS; Start 03/11/17 at 11:45; Stop 03/13/17 at 17:51; Status DC Sodium Bicarbonate (Sodium Bicarbonate 8.4% Inj) 100 meq ONCE ONCE IV PUSH Last administered on 03/11/17 13:14; Start 03/11/17 at 12:45; Stop 03/11/17 at 12:55; Status DC Sodium Bicarbonate (Sodium Bicarbonate 8.4% Inj) 100 meq ONCE ONCE IV PUSH Last administered on 03/11/17 15:03; Start 03/11/17 at 14:45; Stop 03/11/17 at 14:46; Status DC Miscellaneous Medication (ASP Crit: Path resist to other, cult proven) 1 UNSCH X1 PRN .XX PHARMACY DOCUMENTATION; Start 03/11/17 at 15:30; Stop 03/12/17 at 15 :29; Status DC Miscellaneous Medication 1 1 UNSCH X1 PRN XX PHARMACY DOCUMENTATION; Start at 15:30; Stop 03/12/17 at 15:29; Status DC Meropenem/Sodium Chloride (Merrem Inj/NS Inj) 100 ml @ 200 mls/hr Q8H IV Last administered on 03/14/17 08:12; Start 03/11/17 at 16:00; Stop 03/14/17 at 10:37 ; Status DC Sodium Bicarbonate (Sodium Bicarbonate 8.4% Inj) 50 meq UNSCH PRN IV SEE LABEL COMMENTS; Start 03/11/17 at 18:17; Stop 03/13/17 at 17:56; Status DC Insulin Detemir (Levemir Inj) 4 units Q12HR SQ Last administered on 03/16/17 21:53; Start 03/12/17 at 09:00 Dextrose (D50w (Vial) Inj) 25 ml UNSCH PRN IV PUSH HYPOGLYCEMIA-SEE COMMENTS; Start 03/12/17 at 05:15; Stop 03/13/17 at 17:54; Status DC Glucagon (Glucagon Inj) 1 mg UNSCH PRN OTHER HYPOGLYCEMIA-SEE COMMENTS; Start 03/12/17 at 05:15; Stop 03/13/17 at 17:54; Status DC Insulin Human Regular (NovoLIN R SUPPLEMENTAL SCALE) 1 ACHS SLIDING SCALE SQ Last administered on 03/13/17 16:27; Start 03/12/17 at 07:00; Stop 03/13/17 at 17:54; Status DC Amlodipine Besylate (Norvasc) 10 mg DAILY PO Last administered on 03/16/17 08: 55; Start 03/12/17 at 09:45 Aspirin (Aspirin Chew) 81 mg DAILY CHEW Last administered on 03/15/17 08:54; Start 03/12/17 at 09:45 Isosorbide Mononitrate (Imdur) 30 mg DAILY PO Last administered on 03/16/17 08 :55; Start 03/12/17 at 09:45 Metoprolol Tartrate (Lopressor) 50 mg BID PO Last administered on 03/16/17 21: 54; Start 03/12/17 at 09:45 Pravastatin Sodium (Pravachol) 40 mg DAILY PO Last administered on 03/16/17 08 :55; Start 03/12/17 at 09:45 Acetaminophen (Ofirmev Inj) 1,000 mg Q6H PRN IV PAIN SCALE 7 TO 10 Last administered on 03/13/17 05:46; Start 03/12/17 at 10:00; Stop 03/13/17 at 10:00 ; Status DC Famotidine (Pepcid Inj) 20 mg Q12HR IV PUSH Last administered on 03/12/17 20: 50; Start 03/12/17 at 10:15; Stop 03/13/17 at 08:21; Status DC Metoprolol Tartrate (Lopressor Inj) 2.5 mg Q6H PRN IV PUSH SBP>160, DBP>90 Last administered on 03/12/17 10:45; Start 03/12/17 at 10:30; Stop 03/13/17 at 17:56; Status DC Sodium Hypochlorite (Dakin'S 0.25% Soln) 500 ml BID TOPICAL Last administered on 03/16/17 09:11; Start 03/12/17 at 21:00 Famotidine (Pepcid Inj) 10 mg Q12HR IV PUSH Last administered on 03/15/17 08: 39; Start 03/13/17 at 09:00; Stop 03/15/17 at 21:18; Status DC Dextrose (D50w (Vial) Inj) 25 ml UNSCH PRN IV PUSH HYPOGLYCEMIA-SEE COMMENTS; Start 03/13/17 at 17:45 Glucagon (Glucagon Inj) 1 mg UNSCH PRN OTHER HYPOGLYCEMIA-SEE COMMENTS; Start 03/13/17 at 17:45 Insulin Aspart 1 1 ACHS SLIDING SCALE SQ Last administered on 03/16/17 21:53 ; Start 03/13/17 at 21:00 Sodium Chloride (NS 1000 ml Inj) 1,000 ml @ 70 mls/hr [id number] IV Last administered on 03/16/17 06:25; Start 03/13/17 at 18:53; Stop 03/16/17 at 19:59 ; Status DC Metoclopramide HCl (Reglan Inj) 5 mg TIDAC IV PUSH Last administered on 16:03; Start 03/14/17 at 08:00 Alteplase, Recombinant (Cathflo Activase Inj) 2 mg ONCE ONCE INTRACATH Last administered on 03/13/17 21:48; Start 03/13/17 at 20:00; Stop 03/13/17 at 20:01 ; Status DC Gabapentin (Neurontin) 100 mg TID PO Last administered on 03/16/17 18:01; Start 03/14/17 at 09:00 Acetaminophen/ Hydrocodone Bitart ([place] 5-325 Mg) 1 tab Q4H PRN PO leg pain 1 -5; Start 03/13/17 at 21:00 Acetaminophen/ Hydrocodone Bitart ([place] 7.5-325 Mg) 1 tab Q4H PRN PO leg pain 6-10 Last administered on 03/17/17 05:19; Start 03/13/17 at 21:00 Morphine Sulfate (Morphine Inj) 2 mg Q3H PRN IV PUSH pain if vomiting/NPO Last administered on 03/14/17 04:17; Start 03/13/17 at 21:00 Metronidazole (Flagyl) 500 mg Q8H PO ; Start 03/14/17 at 12:00; Stop 03/14/17 at 12:00; Status DC Vancomycin HCl 125 mg 125 mg QID PO Last administered on 03/16/17 21:54; Start 03/14/17 at 13:00; Stop 03/28/17 at 12:59 Potassium Chloride (KCl 20 Meq Premix Inj) 100 ml @ 50 mls/hr ONCE ONCE IV Last administered on 03/14/17 14:47; Start 03/14/17 at 15:00; Stop 03/14/17 at 16:59; Status DC Lisinopril (Prinivil) 20 mg DAILY PO ; Start 03/16/17 at 09:00; Stop 03/16/17 at 09:00; Status DC Non-Formulary Medication 150 mg DAILY PRN PO REFLUX; Start 03/15/17 at 21:15; Stop 03/15/17 at 21:18; Status DC Lisinopril (Prinivil) 20 mg DAILY PO Last administered on 03/16/17 21:58; Start 03/16/17 at 21:00 Non-Formulary Medication 150 mg DAILY PO ; Start 03/15/17 at 21:15; Status UNV Albuterol/ Ipratropium (Duoneb Neb) 1 ampule QID NEB NEB Last administered on 03/16/17 20:28; Start 03/16/17 at 08:00 Famotidine (Pepcid) 20 mg DAILY PO Last administered on 03/16/17 08:55; Start 03/16/17 at 09:00 Bupivacaine HCl (Marcaine Pf 0.5% Inj) 30 ml STK-MED ONCE .ROUTE Last administered on 03/16/17 16:38; Start 03/16/17 at 15:59; Stop 03/16/17 at 16:00 ; Status DC Sodium Chloride (NS Flush) 2 ml UNSCH PRN IV FLUSH FLUSH AFTER USING IV ACCESS ; Start 03/16/17 at 17:00 Sodium Chloride (NS Flush) 2 ml BID IV FLUSH Last administered on 03/16/17 21: 52; Start 03/16/17 at 21:00 Miscellaneous Information (Post-op Orders (for Pharmacy)) STAT ONCE XX ; Start 03/16/17 at 17:00; Stop 03/16/17 at 17:07; Status DC Naloxone HCl (Narcan Inj) 0.4 mg UNSCH PRN IV SEE LABEL COMMENTS; Start at 17:00 Fentanyl Citrate (fentaNYL INJ) 100 mcg STK-MED ONCE .ROUTE ; Start 03/16/17 at 17:14; Stop 03/16/17 at 17:15; Status DC Miscellaneous Information ALL NURSING DEPARTME... UNSCH PRN .XX SEE LABEL COMMENTS; Start 03/16/17 at 17:08; Stop 03/17/17 at 17:07 Sodium Chloride (NS 250 ml Inj) 250 ml @ 15 mls/hr ONCE ONCE IV Last administered on 03/17/17 00:09; Start 03/16/17 at 20:00; Stop 03/17/17 at 12:39 Diphenhydramine HCl (Benadryl) 25 mg Q4H PRN PO SEE LABEL COMMENTS; Start 03/16 at 20:00; Stop 03/17/17 at 00:01; Status DC Furosemide (Lasix Inj) 20 mg ONCE ONCE IV Last administered on 03/17/17t 03:15 ; Start 03/16/17 at 20:00; Stop 03/16/17 at 20:09; Status DC Other Results Laboratory Tests Test 03/16/17 03/16/17 07:35 20:10 White Blood Count 7.2 TH/MM3 Red Blood Count 2.61 MIL/MM3 Hemoglobin 7.7 GM/DL 7.4 GM/DL Hematocrit 22.7 % 21.6 % Mean Corpuscular Volume 87.2 FL Mean Corpuscular Hemoglobin 29.5 PG Mean Corpuscular Hemoglobin 33.8 % Concent Red Cell Distribution Width 15.1 % Platelet Count 171 TH/MM3 Mean Platelet Volume 8.9 FL Neutrophils (%) (Auto) 81.0 % Lymphocytes (%) (Auto) 13.2 % Monocytes (%) (Auto) 5.5 % Eosinophils (%) (Auto) 0.1 % Basophils (%) (Auto) 0.2 % Neutrophils # (Auto) 5.9 TH/MM3 Lymphocytes # (Auto) 1.0 TH/MM3 Monocytes # (Auto) 0.4 TH/MM3 Eosinophils # (Auto) 0.0 TH/MM3 Basophils # (Auto) 0.0 TH/MM3 CBC Comment DIFF FINAL Differential Comment Laboratory Tests Test 03/16/17 05:55 Sodium Level 146 MEQ/L Potassium Level 3.5 MEQ/L Chloride Level 117 MEQ/L Carbon Dioxide Level 22.2 MEQ/L Anion Gap 7 MEQ/L Blood Urea Nitrogen 15 MG/DL Creatinine 1.12 MG/DL Estimat Glomerular Filtration 49 ML/MIN Rate Random Glucose 165 MG/DL Hemoglobin A1c 7.1 % Calcium Level 7.9 MG/DL Prealbumin 13 MG/DL Microbiology Date/Time Procedure Status Source Growth 03/16/17 16:40 Gram Stain Received Wound Leg Pending 03/16/17 16:40 Wound Culture Received Wound Leg Pending Exam-Podiatry Constitutional General appearance: comfortable Nutritional status: overweight Orientation: alert and oriented x3 Dermatological Exam Skin Temp - Right: Within Normal Limits Skin Texture - Right: Within Normal Limits Skin Elasticity - Right: Within Normal Limits Skin Tugor - Right: Within Normal Limits Hair Growth - Right: Within Normal Limits Pigmentation - Right: Within Normal Limits Skin Temp - Left: Within Normal Limits Skin Texture - Left: Within Normal Limits Skin Elasticity - Left: Within Normal Limits Skin Tugor - Left: Within Normal Limits Hair Growth - Left: Within Normal Limits Pigmentation - Left: Within Normal Limits Ulcers: Location/Measurements Ulceration right medial calf measures approximately 9 cm x 10 cm. No active bleeding vessels noted. Good granulating base noted. No odor. Vascular/Lymphatic Exam R Dorsails Pedis: Palpable L Dorsails Pedis: Palpable R Posterior Tibial: Palpable L Posterior Tibial: Palpable Neurologic Exam Present on right: Tingling, Paraesthesia Present on left: Tingling, Paraesthesia Assessment & Plan Diagnosis: (1) Diabetes mellitus with peripheral vascular disease Status: Chronic (2) Atherosclerosis of right lower extremity with ulceration Status: Acute A/P PLAN: New dressing was applied. After foam was applied to the wound with ABDs and Nereyda. Six-inch David bandage was applied from toes to knee. Continue to follow. Await culture and sensitivity. Problem Qualifiers (1) Atherosclerosis of right lower extremity with ulceration: Qualified Code: I70.232 - Atherosclerosis of [place] artery of right lower extremity with ulceration of calf Je Read DPM Mar 17, 2017 08:23
[2017-03-17 08:35] LABS: AUTOMATED NEUTROPHIL # 5.7 TH/MM3 (1.8-7.7); BASOPHIL % 0.1 % (0.0-2.0); EOSINOPHIL % 0.4 % (0.0-4.0); HEMATOCRIT 28.6 % (35.0-46.0); HEMO FLAGS DIFF FINAL; LYMPH % 15.6 % (9.0-44.0); LYMPHOCYTE # 1.2 TH/MM3 (1.0-4.8); MEAN CELL VOLUME 85.5 FL (80.0-100.0); MEAN CORPUSCULAR HEMOGLOBIN 29.1 PG (27.0-34.0); MEAN CORPUSCULAR HGB CONC 34.1 % (32.0-36.0); MONO % 7.7 % (0.0-8.0); NEUT % 76.2 % (16.0-70.0); PLATELET COUNT 184 TH/MM3 (150-450); RED BLOOD COUNT 3.35 MIL/MM3 (4.00-5.30); RED CELL DISTRIBUTION WIDTH 14.9 % (11.6-17.2); WHITE BLOOD COUNT 7.4 TH/MM3 (4.0-11.0)
[2017-03-17] MEDS: SODIUM HYPOCHLORITE 0.25% 500 ML BTL TOPICAL SCH ×2 (09:00→21:00)
[2017-03-17] MEDS: SODIUM CHLORIDE 0.9% FLUSH 10 ML FLUSH IV FLUSH SCH ×4 (09:00→22:00)
[2017-03-17] MEDS: INSULIN DETEMIR 100 UNITS/ML VIAL SQ SCH ×2 (09:00→21:59)
[2017-03-17] MEDS: VANCOMYCIN 500 MG VIAL (FOR ORAL USE ONLY) PO SCH ×4 (09:01→21:59)
[2017-03-17] MEDS: FAMOTIDINE 20 MG TAB PO SCH (09:03)
[2017-03-17] MEDS: METOPROLOL TARTRATE 50 MG TAB PO SCH ×2 (09:03→21:59)
[2017-03-17] MEDS: LISINOPRIL 20 MG TAB PO SCH (09:03)
[2017-03-17] MEDS: ISOSORBIDE MONONITRATE 30 MG TAB PO SCH (09:03)
[2017-03-17] MEDS: PRAVASTATIN SOD 40 MG TAB PO SCH (09:03)
[2017-03-17] MEDS: GABAPENTIN 100 MG CAP PO SCH ×3 (09:03→18:00)
[2017-03-17] MEDS: METOCLOPRAMIDE HCL 10 MG/2 ML VIAL IV PUSH SCH ×3 (09:04→17:00)
[2017-03-17] MEDS: ASPIRIN 81 MG CHEW TAB CHEW SCH (09:04)
[2017-03-17] MEDS: RESP: ALBUTEROL 2.5 MG/IPRATROPIUM 0.5 MG NEB (SCH) NEB ×4 (09:15→19:28)
[2017-03-17 18:44] LABS: BICARBONATE 20.7 MEQ/L (21.0-32.0); POTASSIUM 3.5 MEQ/L (3.5-5.1)
--- NOTE | 2017-03-17 19:20 | PD.CARD.PN ---
Subjective Subjective Remarks Mild SOB, no angina, wound bleeding last night Objective Medications Current Medications Medications (Trade) Dose Ordered Sig/Marie Route Start Time Stop Time Status Last Admin (Sodium Bicarbonate 8.4% Inj/NS 1000 ml Inj) 1,000 ml @ 0 mls/hr Q0M IV 03/11/17 10:39 03/11/17 18:36 (NS Flush) 2 ml UNSCH PRN IV FLUSH 03/11/17 11:30 (NS Flush) 2 ml BID IV FLUSH 03/11/17 21:00 03/17/17 09:04 (Tylenol) 650 mg Q6H PRN PO 03/11/17 11:30 03/12/17 22:29 (Zofran Inj) 4 mg Q6H PRN IV 03/11/17 11:30 03/14/17 21:38 (Dulcolax Supp) 10 mg DAILY PRN RECTAL 03/11/17 11:30 (Heparin Inj) 5,000 units Q8H SQ 03/11/17 13:00 Hold 03/16/17 04:13 Miscellaneous Information 1 Q361D XX 03/11/17 11:30 03/11/17 11:30 (Chlorhexidine 2% Cloth) Taper DAILY@04 TOP 03/12/17 04:00 03/08/18 03:59 03/12/17 03:03 (Chlorhexidine 2% Cloth) 3 pack UNSCH PRN TOP 03/11/17 11:30 (Levemir Inj) 4 units Q12HR SQ 03/12/17 09:00 03/17/17 09:00 (Norvasc) 10 mg DAILY PO 03/12/17 09:45 03/17/17 09:03 (Aspirin Chew) 81 mg DAILY CHEW 03/12/17 09:45 03/17/17 09:04 (Imdur) 30 mg DAILY PO 03/12/17 09:45 03/17/17 09:03 (Lopressor) 50 mg BID PO 03/12/17 09:45 03/17/17 09:03 (Pravachol) 40 mg DAILY PO 03/12/17 09:45 03/17/17 09:03 (Dakin'S 0.25% Soln) 500 ml BID TOPICAL 03/12/17 21:00 03/16/17 09:11 (D50w (Vial) Inj) 25 ml UNSCH PRN IV PUSH 03/13/17 17:45 (Glucagon Inj) 1 mg UNSCH PRN OTHER 03/13/17 17:45 (Reglan Inj) 5 mg TIDAC IV PUSH 03/14/17 08:00 03/17/17 17:00 (Neurontin) 100 mg TID PO 03/14/17 09:00 03/17/17 18:00 (Addis 5-325 Mg) 1 tab Q4H PRN PO 03/13/17 21:00 (Addis 7.5-325 Mg) 1 tab Q4H PRN PO 03/13/17 21:00 03/17/17 09:49 (Morphine Inj) 2 mg Q3H PRN IV PUSH 03/13/17 21:00 03/14/17 04:17 (VANCOMYCIN for oral use only) 125 mg QID PO 03/14/17 13:00 03/28/17 12:59 03/17/17 18:00 (Prinivil) 20 mg DAILY PO 03/16/17 21:00 03/17/17 09:03 (Pepcid) 20 mg DAILY PO 03/16/17 09:00 03/17/17 09:03 (NS Flush) 2 ml UNSCH PRN IV FLUSH 03/16/17 17:00 (NS Flush) 2 ml BID IV FLUSH 03/16/17 21:00 03/17/17 09:00 (Narcan Inj) 0.4 mg UNSCH PRN IV 03/16/17 17:00 Vital Signs / I&O Vital Signs Date Time Temp Pulse Resp B/P Pulse Ox O2 Delivery O2 Flow Rate FiO2 03/17/17 16:00 98.3 72 18 149/70 97 03/17/17 15:18 100 Nasal Cannula 2.00 03/17/17 12:00 97.1 84 18 153/78 100 03/17/17 09:00 65 03/17/17 08:33 99 Nasal Cannula 2.00 03/17/17 08:00 98.1 78 18 166/89 96 03/17/17 04:00 98.1 84 18 148/71 99 03/17/17 03:59 97.9 76 16 144/73 98 03/17/17 03:44 97.6 67 16 142/67 99 03/17/17 03:12 97.6 67 16 142/67 99 03/17/17 00:57 98.5 68 18 135/60 99 03/17/17 00:42 98.0 87 18 128/66 98 03/17/17 00:00 98.0 87 18 128/68 98 03/16/17 20:28 99 High Flow Nasal Cannula 2.00 03/16/17 20:00 97.7 88 18 119/60 98 03/16/17 20:00 89 I/O 03/16/17 03/16/17 03/16/17 03/17/17 03/17/17 03/17/17 07:00 15:00 23:00 07:00 15:00 23:00 Intake Total 0 ml 3251 ml 260 ml 240 ml 480 ml Output Total 300 ml 700 ml 950 ml Balance 0 ml 3251 ml -40 ml -460 ml -470 ml Intake Oral 0 ml 0 ml 240 ml 240 ml 480 ml IV Total 3251 ml 20 ml Output Urine Total 300 ml 700 ml 950 ml # Voids 1 2 # Bowel Movements 0 0 0 0 0 Physical Exam GENERAL: In NAD SKIN: Warm and dry. HEAD: Normocephalic. EYES: No scleral icterus. No injection or drainage. NECK: Supple, trachea midline. No JVD or lymphadenopathy. CARDIOVASCULAR: Regular rate and rhythm without murmurs, gallops, or rubs. RESPIRATORY: Breath sounds equal bilaterally. No accessory muscle use. GASTROINTESTINAL: Abdomen soft, non-tender, nondistended. MUSCULOSKELETAL: No cyanosis, or edema. RLE dressing intact Laboratory Laboratory Tests Test 03/16/17 03/16/17 03/17/17 03/17/17 20:10 22:13 08:00 18:00 Hemoglobin 7.4 GM/DL 9.7 GM/DL Hematocrit 21.6 % 28.6 % Blood Type B NEGATIVE Antibody Screen NEGATIVE Crossmatch Leukocyte-Reduced Red Blood Cells Blood Bank Comment White Blood Count 7.4 TH/MM3 Red Blood Count 3.35 MIL/MM3 Mean Corpuscular Volume 85.5 FL Mean Corpuscular Hemoglobin 29.1 PG Mean Corpuscular Hemoglobin 34.1 % Concent Red Cell Distribution Width 14.9 % Platelet Count 184 TH/MM3 Mean Platelet Volume 9.1 FL Neutrophils (%) (Auto) 76.2 % Lymphocytes (%) (Auto) 15.6 % Monocytes (%) (Auto) 7.7 % Eosinophils (%) (Auto) 0.4 % Basophils (%) (Auto) 0.1 % Neutrophils # (Auto) 5.7 TH/MM3 Lymphocytes # (Auto) 1.2 TH/MM3 Monocytes # (Auto) 0.6 TH/MM3 Eosinophils # (Auto) 0.0 TH/MM3 Basophils # (Auto) 0.0 TH/MM3 CBC Comment DIFF FINAL Differential Comment Sodium Level 145 MEQ/L Potassium Level 3.5 MEQ/L Chloride Level 118 MEQ/L Carbon Dioxide Level 20.7 MEQ/L Anion Gap 6 MEQ/L Blood Urea Nitrogen 14 MG/DL Creatinine 0.99 MG/DL Estimat Glomerular Filtration 56 ML/MIN Rate Random Glucose 173 MG/DL Calcium Level 7.7 MG/DL Imaging Last Impressions Aorta w/Runoff CTA 03/15/17 0000 Signed Impressions: Service Date/Time: Wednesday, March 15, 2017 15:34 - CONCLUSION: 1. Inflow is patent down to the common femorals bilaterally despite regional calcification. 2. In the right lower extremity, there is some atherosclerotic irregularity at the adductor hiatus but the profunda, SFA and popliteal are patent down to the trifurcation with dominant runoff via the posterior tibial. 3. In the left lower extremity, some minimal narrowing of the proximal SFA but the common femoral, profunda, SFA and popliteal are patent down to the trifurcation with dominant runoff via the posterior tibial and peroneal. Anterior tibial occludes proximally. 4. Moderate sized bilateral pleural effusions with concomitant atelectatic changes. 5. 2.5 cm fat-containing lesion in the right lower lobe adjacent to the esophagus and posterior to the intrahepatic IVC. 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 6. Mixed density 3.7 cm mass lesion associated with the left adrenal which contains calcium and fat and may represent a myelolipoma which has previously bleed. 7. Diffuse anasarca with fluid in the deep pelvis and bilateral pleural effusions are suggesting right heart insufficiency. 8. Cortical scarring in the upper pole of the right kidney. 9. Nonspecific enhancing areas in the left and right hepatic lobes. These are overtly benign and may represent small hemangiomas. Preet Chavez MD Chest X-Ray 03/11/17 0000 Signed Impressions: Service Date/Time: February 10:04 - CONCLUSION: Normal examination. Left IJ central venous catheter in excellent position. Bradley Doe MD Assessment and Plan Problem List: (1) CAD (coronary artery disease) (2) IDDM (insulin dependent diabetes mellitus) (3) Hypertension (4) Acute kidney insufficiency (5) Clostridium difficile colitis (6) Dog bite of multiple sites of right lower extremity Assessment and Plan Continue monitoring. Resume anticoagulation (use clopidogrel) once bleeding risk minimal. Increase activity. Continue tx for angina and risk factor modification. Problem Qualifiers (1) CAD (coronary artery disease): Qualified Code: I25.10 - Coronary artery disease involving [place] coronary artery of [place] heart without angina pectoris (2) Dog bite of multiple sites of right lower extremity: Qualified Code: S81.851D - Dog bite of multiple sites of right lower extremity , subsequent encounter Dunia Reddy MD Mar 17, 2017 19:20
--- NOTE | 2017-03-17 21:05 | HHI.PR ---
Subjective Remarks no further bleeding, pain is controlled. c/o thigh edema. Objective Vitals Vital Signs Date Time Temp Pulse Resp B/P Pulse Ox O2 Delivery O2 Flow Rate FiO2 03/17/17 16:00 98.3 72 18 149/70 97 03/17/17 15:18 100 Nasal Cannula 2.00 03/17/17 12:00 97.1 84 18 153/78 100 03/17/17 09:00 65 03/17/17 08:33 99 Nasal Cannula 2.00 03/17/17 08:00 98.1 78 18 166/89 96 03/17/17 04:00 98.1 84 18 148/71 99 03/17/17 03:59 97.9 76 16 144/73 98 03/17/17 03:44 97.6 67 16 142/67 99 03/17/17 03:12 97.6 67 16 142/67 99 03/17/17 00:57 98.5 68 18 135/60 99 03/17/17 00:42 98.0 87 18 128/66 98 03/17/17 00:00 98.0 87 18 128/68 98 I/O 03/16/17 03/16/17 03/16/17 03/17/17 03/17/17 03/17/17 07:00 15:00 23:00 07:00 15:00 23:00 Intake Total 0 ml 3251 ml 260 ml 240 ml 480 ml Output Total 300 ml 700 ml 950 ml Balance 0 ml 3251 ml -40 ml -460 ml -470 ml Intake Oral 0 ml 0 ml 240 ml 240 ml 480 ml IV Total 3251 ml 20 ml Output Urine Total 300 ml 700 ml 950 ml # Voids 1 2 # Bowel Movements 0 0 0 0 0 Result Diagram: 03/17/17 0800 03/17/17 1800 Objective Remarks GENERAL: Well-nourished, well-developed pleasant CF patient. SKIN: Warm and dry. HEAD: Normocephalic. EYES: No scleral icterus. No injection or drainage. NECK: Supple, trachea midline. No JVD or lymphadenopathy. CARDIOVASCULAR: Regular rate and rhythm without murmurs, gallops, or rubs. RESPIRATORY: Breath sounds equal bilaterally. No accessory muscle use. GASTROINTESTINAL: Abdomen soft, non-tender, nondistended. EXTREMITIES: No cyanosis, or edema. right lower extremity wrapped in gauze with significant blood strikethrough and has soaked surround blanket. NEUROLOGICAL: Awake, alert, and oriented x 3. Non-focal. Date of Removal: Mar 14, 2017 A/P Problem List: (1) Clostridium difficile colitis ICD Code: A04.7 Status: Acute (2) Nausea & vomiting ICD Code: R11.2 Status: Resolved (3) Lactic acid acidosis ICD Code: E87.2 Status: Chronic (4) Anemia ICD Code: D64.9 Status: Chronic (5) COPD (chronic obstructive pulmonary disease) ICD Code: J44.9 Status: Chronic (6) HTN (hypertension) ICD Code: I10 Status: Chronic (7) IDDM (insulin dependent diabetes mellitus) ICD Code: E11.9 Status: Chronic (8) Hypothermia ICD Code: T68.XXXA Status: Resolved (9) Sepsis ICD Code: A41.9 Status: Acute (10) Metabolic acidosis ICD Code: E87.2 Status: Resolved (11) DKA (diabetic ketoacidoses) ICD Code: E13.10 Status: Resolved (12) Dog bite of multiple sites of right lower extremity ICD Code: S81.851A Status: Chronic (13) Hypertension ICD Code: I10 Status: Chronic (14) Leukocytosis ICD Code: D72.829 Status: Acute (15) CONOR (acute kidney injury) ICD Code: N17.9 Status: Acute (16) Diarrhea ICD Code: R19.7 Status: Acute (17) CAD (coronary artery disease) ICD Code: I25.10 Status: Chronic (18) Anemia, iron deficiency ICD Code: D50.9 Status: Chronic Assessment and Plan 66-year-old female with: -C.difficile Colitis: pt with multiple episodes of diarrhea, Cdiff + on 03/13. Infectious disease consulted. Started oral vanco 125mg po q6h [id number] (stop date 03/28). Monitor BMs. Monitor BMP. Diet as tolerated. I discussed with Dr. Blue previously. -now clinically improved, 2 loose stools, no abd pain, leukocytosis resolved , no further n/v. -Severe right lower extremity wound s/p dog bite previous admission, had wound vac on at home (placed 03/02), now dressing changes per plastic. Concern for wound infection on admission, no wound culture. S/p plastic eval with Dr. Moore who felt wound did not appear infected. Blood cultures NGTD. UA, cxr neg. Check prealbumin level to assess nutrition (pending). Optimize glucose control and nutrition. I consulted and discussed with Dr. Read/podiatry for outpatient wound management, consideration to hyperbaric oxygen therapy. s/ p OR debridement today to promote wound healing. CTA aorta with runoff noted - sufficient blood flow. -Type 2 DM, uncontrolled but improving trends - HbA1c in november was 8%, will recheck/pending. s/p diabetic education today. cont levemir 4 units sq q 12 hr, to hold if not taking meals or glucose<120. SSI low novolog AC, HS, 03:00. -Hypernatremia, hypovolemic - improving. Na 146 today, will HLIV as she now has good PO intake as has anasarca, likely d/t low albumin state. -CONOR - improving, nonoliguric, cont IVF, DC'ed philippe 03/14. Cr ~1. Avoid nephrotoxins. -Anemia of fe deficiency (possible underlying myelodysplastic disorder as per Dr. Schmidt's outpatient evaluation), also of chronic illness, hb improved s/p transfusion, monitor CBC, Hgb 7.7 today, d/t bleeding will transfuse 2 units pRBCs, give lasix 20 mg IV in between units. -CAD, history stents, [facility] in 2014 with stent to the LAD & RCA per Dr. Reddy -cont metoprolol 50 mg twice a day, aspirin 81 mg/day Isordil. Discussed with Dr. Reddy today/consulted to see if effient needs to be resumed , would avoid currently d/t bleeding. -COPD/Asthma-without acute exacerbation. Does not use home O2. Duo nebs QID scheduled, every 2 hours when necessary, O2 via NC as needed. consult pulmonology as well (pt does not follow with pulm). -CHF, chronic diastolic. Echo 03/13 shows preserved EF, large left pleural effusion. patient denies hx CHF. she has preserved EF. -Anasarca - suspect due to hypoalbuminemia. she has preserved EF, and no hx liver disease. consider diuresis with albumin. no significant pedal edema at this time, no resp compromise. -B/l plerual effusions, likely due to the anasarca. asymptomatic currently, consider thoracentesis. will consult pulmonogy (pt does not follow with hospital corpsman). -Hypertension-improved control. cont Norvasc 10 mg/day, metoprolol 50 mg twice a day, aspirin 81 mg/day Isordil resumed. resume lisinopril tonight. -Generalized weakness - continue PT. weakness exacerbated by RLE wound. even prior to admission patient was unable to navigate the 3 steps to her house. Optimally she could be DC'ed to home environment to start hyperbaric O2 as soon as possible. her is currently building a wheelchair ramp. -Severe malnutrition - hypoalbuminemia d/t poor PO intake, prealbumin 13, will consult dietary for recs, patient encouraged to increase PO intake. -Severe metabolic acidosis, resolved. -Acute metabolic encephalopathy - resolved. -Diabetic Peripheral neuropathy - started on neurontin. lortab prn for pain. -Nausea and vomiting -now resolved. -Sepsis due to c dif colitis, sepsis resolved. -Diabetic ketoacidosis, resolved. Was likely triggered by the colitis. -GERD-resume zantac PO. DVT Prophylaxis-Heparin 5000 SQ - will hold for now due to bleeding. Problem Qualifiers (1) Hypothermia: Qualified Code: T68.XXXA - Hypothermia, initial encounter (2) Sepsis: Qualified Code: A41.9 - Sepsis, due to unspecified organism (3) DKA (diabetic ketoacidoses): Qualified Code: E13.10 - Diabetic ketoacidosis without coma associated with other specified diabetes mellitus (4) Dog bite of multiple sites of right lower extremity: Qualified Code: S81.851D - Dog bite of multiple sites of right lower extremity , subsequent encounter (5) CAD (coronary artery disease): Qualified Code: I25.10 - Coronary artery disease involving [place] coronary artery of [place] heart without angina pectoris Uzma Prabhakar MD Mar 17, 2017 21:05
[2017-03-18] VITALS (8 sets, daily range): BP systolic 135–154; BP diastolic 65–74; PULSE 67–82; RESP 18–20; TEMP 97.9–98.5; O2SAT 95–98
[2017-03-18] MEDS: ACETAMINOPHEN/HYDROcodone 325 MG/7.5 MG TAB PO PRN ×3 (02:42→17:54)
[2017-03-18] MEDS: CHLORHEXIDINE GLUCONATE 2 % 1 PACK (2 CLOTHS) TOP SCH (03:57)
--- NOTE | 2017-03-18 06:05 | MB ---
cc: TRAVON COOL M.D. DATE OF CONSULTATION 03/17/2017 REASON FOR CONSULTATION COPD. HISTORY OF PRESENT ILLNESS Mrs. Maynard is a 66-year-old female who had a dog bite and subsequent surgery on her leg. The patient is receiving debridement at present and she is on antibiotic therapy for same. She does have history of COPD. Denies history of fever or chills. No cough, no expectoration, no hemoptysis. PAST MEDICAL HISTORY 1. COPD. 2. Coronary artery disease. 3. Chronic anemia. 4. Diabetes mellitus. 5. Previous laminectomy. 6. History of hysterectomy. 7. C-sections. 8. Trigger finger surgery. 9. Bilateral knee surgeries. 10. Left ankle surgery. MEDICATIONS 1. Nebulized albuterol. 2. Effient. 3. Lisinopril. 4. Metoprolol. 5. Insulin. 6. Pravastatin. 7. Aldactone. 8. Norvasc. 9. Levemir. 10. Levothyroxine. 11. Pain medication as needed. ALLERGIES DARVON. SOCIAL HISTORY Used to smoke, not at present. Does not drink any alcohol. Does not use drugs. FAMILY HISTORY Noncontributory. SYSTEMS REVIEW A 12-point review of systems as per HPI, otherwise negative. PHYSICAL EXAMINATION GENERAL: On exam the patient is alert. VITAL SIGNS: Temperature 98, pulse 70, respirations 18, blood pressure 140/70. Oxygen saturation 97% on 2 liters oxygen nasal cannula. HEENT: Exam unremarkable. Eyes without icterus. NECK: Without adenopathy or thyroid enlargement. CHEST: Without dullness to percussion, clear to auscultation. CARDIAC EXAM: PMI distant. S1-S2 audible. 1/6 ejection systolic murmur left sternal border. ABDOMEN: Lax. Bowel sounds audible. EXTREMITIES: Right lower extremity bandaged post debridement. LABORATORY DATA White count 7.2, hemoglobin 77, platelets 171,000. Sodium 146, potassium 3.5, BUN 15, creatinine 1.1. IMPRESSION 1. COPD. 2. Respiratory failure on oxygen therapy. 3. Right lower extremity dog bite being treated at present. 4. Anemia. 5. Hypertension. 6. Diabetes mellitus. 7. Hypothyroidism. 8. Hypertension. 9. Acute renal injury. 10. Coronary artery disease. PLAN 1. The patient will be maintained on oxygen therapy as needed. Bronchodilator will be maintained. Chest x-ray will be followed. The patient seems to be doing well from a COPD standpoint at present. 2. We will obtain pulmonary function when possible. I will follow her care along with you. Sincerely MD PRUDENCIO Kahn/DANIEL /8:14 PM /5:51 AM
[2017-03-18] MEDS: INSULIN ASPART SUPPLEMENTAL SCALE SQ SCH ×4 (06:27→21:15)
[2017-03-18] MEDS: GABAPENTIN 100 MG CAP PO SCH ×3 (07:45→17:49)
[2017-03-18] MEDS: FAMOTIDINE 20 MG TAB PO SCH (07:45)
[2017-03-18] MEDS: METOPROLOL TARTRATE 50 MG TAB PO SCH ×2 (07:46→21:16)
[2017-03-18] MEDS: PRAVASTATIN SOD 40 MG TAB PO SCH (07:46)
[2017-03-18] MEDS: LISINOPRIL 20 MG TAB PO SCH (07:46)
[2017-03-18] MEDS: ASPIRIN 81 MG CHEW TAB CHEW SCH (07:46)
[2017-03-18] MEDS: ISOSORBIDE MONONITRATE 30 MG TAB PO SCH (07:46)
[2017-03-18] MEDS: VANCOMYCIN 500 MG VIAL (FOR ORAL USE ONLY) PO SCH ×4 (07:48→21:15)
[2017-03-18] MEDS: SODIUM CHLORIDE 0.9% FLUSH 10 ML FLUSH IV FLUSH SCH ×4 (07:49→21:16)
[2017-03-18] MEDS: METOCLOPRAMIDE HCL 10 MG/2 ML VIAL IV PUSH SCH ×3 (07:49→17:00)
[2017-03-18] MEDS: INSULIN DETEMIR 100 UNITS/ML VIAL SQ SCH ×2 (07:49→21:15)
[2017-03-18] MEDS: SODIUM HYPOCHLORITE 0.25% 500 ML BTL TOPICAL SCH ×2 (07:49→21:00)
[2017-03-18] MEDS: RESP: ALBUTEROL 2.5 MG/IPRATROPIUM 0.5 MG NEB (SCH) NEB ×4 (07:57→19:25)
--- NOTE | 2017-03-18 08:44 | HHI.PR ---
Subjective Remarks ALERT NO SOB AT REST SAT OK ON N/C Objective Vital Signs Date Time Temp Pulse Resp B/P Pulse Ox O2 Delivery O2 Flow Rate FiO2 03/18/17 08:00 97.9 67 20 154/69 97 03/18/17 07:57 96 Nasal Cannula 2.00 03/18/17 04:00 98.5 68 18 146/68 95 03/18/17 00:00 98.4 77 18 146/65 97 03/17/17 20:00 74 03/17/17 20:00 98.2 77 18 151/75 96 03/17/17 16:00 98.3 72 18 149/70 97 03/17/17 15:18 100 Nasal Cannula 2.00 03/17/17 12:00 97.1 84 18 153/78 100 03/17/17 09:00 65 I/O 03/17/17 03/17/17 03/17/17 03/18/17 03/18/17 03/18/17 07:00 15:00 23:00 07:00 15:00 23:00 Intake Total 240 ml 480 ml 480 ml 480 ml Output Total 700 ml 950 ml Balance -460 ml -470 ml 480 ml 480 ml Intake Oral 240 ml 480 ml 480 ml 480 ml Output Urine Total 700 ml 950 ml # Voids 0 1 # Bowel Movements 0 0 0 0 Result Diagram: 03/17/17 0800 03/17/17 1800 Objective Remarks GENERAL: SKIN: Warm and dry. HEAD: Atraumatic. Normocephalic. EYES: Pupils equal and round. No scleral icterus. No injection or drainage. ENT: No nasal bleeding or discharge. Mucous membranes pink and moist. NECK: Trachea midline. No JVD. CARDIOVASCULAR: Regular rate and rhythm. RESPIRATORY: No accessory muscle use. Clear to auscultation. Breath sounds equal bilaterally. GASTROINTESTINAL: Abdomen soft, non-tender, nondistended. Hepatic and splenic margins not palpable. MUSCULOSKELETAL: Extremities without clubbing, cyanosis, or edema. No obvious deformities. NEUROLOGICAL: Awake and alert. No obvious cranial nerve deficits. Motor grossly within normal limits. Five out of 5 muscle strength in the arms and legs. Normal speech. PSYCHIATRIC: Appropriate mood and affect; insight and judgment normal. Assessment and Plan Assessment and Plan COPD DOG BITE PLAN O2 NEEDED BRONCHODILATOR THERAPY INCREASE ACTIVITY Sylvia Ward MD Mar 18, 2017 08:44
--- NOTE | 2017-03-18 13:01 | PD.CARD.PN ---
Subjective Subjective Remarks No CP, mild SOB this AM, feels better Objective Medications Current Medications Medications (Trade) Dose Ordered Sig/Marie Route Start Time Stop Time Status Last Admin (Sodium Bicarbonate 8.4% Inj/NS 1000 ml Inj) 1,000 ml @ 0 mls/hr Q0M IV 03/11/17 10:39 03/11/17 18:36 (NS Flush) 2 ml UNSCH PRN IV FLUSH 03/11/17 11:30 (NS Flush) 2 ml BID IV FLUSH 03/11/17 21:00 03/18/17 07:49 (Tylenol) 650 mg Q6H PRN PO 03/11/17 11:30 03/12/17 22:29 (Zofran Inj) 4 mg Q6H PRN IV 03/11/17 11:30 03/14/17 21:38 (Dulcolax Supp) 10 mg DAILY PRN RECTAL 03/11/17 11:30 (Heparin Inj) 5,000 units Q8H SQ 03/11/17 13:00 Hold 03/16/17 04:13 Miscellaneous Information 1 Q361D XX 03/11/17 11:30 03/11/17 11:30 (Chlorhexidine 2% Cloth) Taper DAILY@04 TOP 03/12/17 04:00 03/08/18 03:59 03/12/17 03:03 (Chlorhexidine 2% Cloth) 3 pack UNSCH PRN TOP 03/11/17 11:30 (Levemir Inj) 4 units Q12HR SQ 03/12/17 09:00 03/18/17 07:49 (Norvasc) 10 mg DAILY PO 03/12/17 09:45 03/18/17 07:46 (Aspirin Chew) 81 mg DAILY CHEW 03/12/17 09:45 03/18/17 07:46 (Imdur) 30 mg DAILY PO 03/12/17 09:45 03/18/17 07:46 (Lopressor) 50 mg BID PO 03/12/17 09:45 03/18/17 07:46 (Pravachol) 40 mg DAILY PO 03/12/17 09:45 03/18/17 07:46 (Dakin'S 0.25% Soln) 500 ml BID TOPICAL 03/12/17 21:00 03/16/17 09:11 (D50w (Vial) Inj) 25 ml UNSCH PRN IV PUSH 03/13/17 17:45 (Glucagon Inj) 1 mg UNSCH PRN OTHER 03/13/17 17:45 (Reglan Inj) 5 mg TIDAC IV PUSH 03/14/17 08:00 03/18/17 07:49 (Neurontin) 100 mg TID PO 03/14/17 09:00 03/18/17 07:45 (Mitchells 5-325 Mg) 1 tab Q4H PRN PO 03/13/17 21:00 (Mitchells 7.5-325 Mg) 1 tab Q4H PRN PO 03/13/17 21:00 03/18/17 06:28 (Morphine Inj) 2 mg Q3H PRN IV PUSH 03/13/17 21:00 03/14/17 04:17 (VANCOMYCIN for oral use only) 125 mg QID PO 03/14/17 13:00 03/28/17 12:59 03/18/17 07:48 (Prinivil) 20 mg DAILY PO 03/16/17 21:00 03/18/17 07:46 (Pepcid) 20 mg DAILY PO 03/16/17 09:00 03/18/17 07:45 (NS Flush) 2 ml UNSCH PRN IV FLUSH 03/16/17 17:00 (NS Flush) 2 ml BID IV FLUSH 03/16/17 21:00 03/18/17 07:49 (Narcan Inj) 0.4 mg UNSCH PRN IV 03/16/17 17:00 Vital Signs / I&O Vital Signs Date Time Temp Pulse Resp B/P Pulse Ox O2 Delivery O2 Flow Rate FiO2 03/18/17 12:00 98.1 68 18 150/67 98 03/18/17 08:00 97.9 67 20 154/69 97 03/18/17 07:57 96 Nasal Cannula 2.00 03/18/17 04:00 98.5 68 18 146/68 95 03/18/17 00:00 98.4 77 18 146/65 97 03/17/17 20:00 74 03/17/17 20:00 98.2 77 18 151/75 96 03/17/17 16:00 98.3 72 18 149/70 97 03/17/17 15:18 100 Nasal Cannula 2.00 I/O 03/17/17 03/17/17 03/17/17 03/18/17 03/18/17 03/18/17 07:00 15:00 23:00 07:00 15:00 23:00 Intake Total 240 ml 480 ml 480 ml 480 ml Output Total 700 ml 950 ml Balance -460 ml -470 ml 480 ml 480 ml Intake Oral 240 ml 480 ml 480 ml 480 ml Output Urine Total 700 ml 950 ml # Voids 0 1 # Bowel Movements 0 0 0 0 Physical Exam GENERAL: In NAD SKIN: Warm and dry. HEAD: Normocephalic. EYES: No scleral icterus. No injection or drainage. NECK: Supple, trachea midline. No JVD or lymphadenopathy. CARDIOVASCULAR: Regular rate and rhythm without murmurs, gallops, or rubs. RESPIRATORY: Breath sounds equal bilaterally. No accessory muscle use. GASTROINTESTINAL: Abdomen soft, non-tender, nondistended. MUSCULOSKELETAL: No cyanosis, or edema. RLE dressing intact Laboratory Laboratory Tests Test 03/17/17 18:00 Sodium Level 145 MEQ/L Potassium Level 3.5 MEQ/L Chloride Level 118 MEQ/L Carbon Dioxide Level 20.7 MEQ/L Anion Gap 6 MEQ/L Blood Urea Nitrogen 14 MG/DL Creatinine 0.99 MG/DL Estimat Glomerular Filtration 56 ML/MIN Rate Random Glucose 173 MG/DL Calcium Level 7.7 MG/DL Imaging Last Impressions Aorta w/Runoff CTA 03/15/17 0000 Signed Impressions: Service Date/Time: Wednesday, March 15, 2017 15:34 - CONCLUSION: 1. Inflow is patent down to the common femorals bilaterally despite regional calcification. 2. In the right lower extremity, there is some atherosclerotic irregularity at the adductor hiatus but the profunda, SFA and popliteal are patent down to the trifurcation with dominant runoff via the posterior tibial. 3. In the left lower extremity, some minimal narrowing of the proximal SFA but the common femoral, profunda, SFA and popliteal are patent down to the trifurcation with dominant runoff via the posterior tibial and peroneal. Anterior tibial occludes proximally. 4. Moderate sized bilateral pleural effusions with concomitant atelectatic changes. 5. 2.5 cm fat-containing lesion in the right lower lobe adjacent to the esophagus and posterior to the intrahepatic IVC. 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 6. Mixed density 3.7 cm mass lesion associated with the left adrenal which contains calcium and fat and may represent a myelolipoma which has previously bleed. 7. Diffuse anasarca with fluid in the deep pelvis and bilateral pleural effusions are suggesting right heart insufficiency. 8. Cortical scarring in the upper pole of the right kidney. 9. Nonspecific enhancing areas in the left and right hepatic lobes. These are overtly benign and may represent small hemangiomas. Preet Chavez MD Chest X-Ray 03/11/17 0000 Signed Impressions: Service Date/Time: February 10:04 - CONCLUSION: Normal examination. Left IJ central venous catheter in excellent position. Bradley Doe MD Assessment and Plan Problem List: (1) CAD (coronary artery disease) (2) IDDM (insulin dependent diabetes mellitus) (3) Hypertension (4) Acute kidney insufficiency (5) Clostridium difficile colitis (6) Dog bite of multiple sites of right lower extremity Assessment and Plan Continue monitoring. Resume anticoagulation (stop Effient and use clopidogrel with baby ASA) once OK with surgery and bleeding risk is minimal. Increase activity. Continue tx for angina and aggressive risk factor modification. Problem Qualifiers (1) CAD (coronary artery disease): Qualified Code: I25.10 - Coronary artery disease involving minto coronary artery of minto heart without angina pectoris (2) Dog bite of multiple sites of right lower extremity: Qualified Code: S81.851D - Dog bite of multiple sites of right lower extremity , subsequent encounter Dunia Reddy MD Mar 18, 2017 13:01
--- NOTE | 2017-03-18 14:54 | HHI.IDPN ---
Subjective Subjective Remarks is a 66 y/o CF with PMHx of Diabetes on Insulin at home, h/o dog bite in January 2017, s/p debridement of RLE wound by in February 2017. Patient was initially admitted in January 2017 for dog bite by her own dog. She reports animal control was called and the dog was put to rest. She still has two other dogs in her home. No other family members were harmed/bitten. Upon review of records it appears patient was treated with IV Unasyn. She was discharged home on oral augmentin. Patient was then readmitted for pain in RLE and found to have necrotic ulcers in RLE at site of dog bite. Patient underwent evaluation by Plastics and underwent debridement of RLE wounds and was ? on wound vac. Patient reports being under the care of wound care RNs. Patient now is admitted to when she presented to the hospital and was noted to have tachypnea 30's and tachycardia 130's, blood glucose levels were obtained noted to be 500 mg/deciliter. The patient was alert and oriented 3. Upon admission to the ED, the patient received 3 L normal saline, insulin infusion initiated. Laboratory studies were obtained, patient was noted to be in DKA. DKA protocol initiated. Critical care medicine's consult for management. At the time of my evaluation patient is in the IMC. Alert, maintaining airway, answering questions appropriately. UO ok. On IV Insulin gtt per CCM. ID consulted for eval and mment of infected RLE ulcers s.p dog bite with h/o MDR E.coli. Overnight events reviewed. No fever No rash s/p debridement of wound with organisms likely colonization Antibiotics Vanco oral. Lines Line sites with no e.o infection. Past Medical History reviewed. Allergies: Coded Allergies: Darvon (Verified Allergy, Mild, RASH, 03/11/17) *MDRO Multi-Drug Resistant Organism (Verified Adverse Reaction, Unknown, ) 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 Objective . Vital Signs Date Time Temp Pulse Resp B/P Pulse Ox O2 Delivery O2 Flow Rate FiO2 03/18/17 12:00 98.1 68 18 150/67 98 03/18/17 08:00 97.9 67 20 154/69 97 03/18/17 07:57 96 Nasal Cannula 2.00 03/18/17 04:00 98.5 68 18 146/68 95 03/18/17 00:00 98.4 77 18 146/65 97 03/17/17 20:00 74 03/17/17 20:00 98.2 77 18 151/75 96 03/17/17 16:00 98.3 72 18 149/70 97 03/17/17 15:18 100 Nasal Cannula 2.00 03/17/17 03/17/17 03/18/17 15:00 23:00 07:00 Intake Total 480 ml 480 ml 480 ml Output Total 950 ml Balance -470 ml 480 ml 480 ml Intake Oral 480 ml 480 ml 480 ml Output Urine Total 950 ml # Voids 0 1 # Bowel Movements 0 0 0 . Laboratory Tests Test 03/16/17 03/17/17 20:10 08:00 Hemoglobin 7.4 GM/DL 9.7 GM/DL Hematocrit 21.6 % 28.6 % White Blood Count 7.4 TH/MM3 Red Blood Count 3.35 MIL/MM3 Mean Corpuscular Volume 85.5 FL Mean Corpuscular Hemoglobin 29.1 PG Mean Corpuscular Hemoglobin 34.1 % Concent Red Cell Distribution Width 14.9 % Platelet Count 184 TH/MM3 Mean Platelet Volume 9.1 FL Neutrophils (%) (Auto) 76.2 % Lymphocytes (%) (Auto) 15.6 % Monocytes (%) (Auto) 7.7 % Eosinophils (%) (Auto) 0.4 % Basophils (%) (Auto) 0.1 % Neutrophils # (Auto) 5.7 TH/MM3 Lymphocytes # (Auto) 1.2 TH/MM3 Monocytes # (Auto) 0.6 TH/MM3 Eosinophils # (Auto) 0.0 TH/MM3 Basophils # (Auto) 0.0 TH/MM3 CBC Comment DIFF FINAL Differential Comment Laboratory Tests Test 03/17/17 18:00 Sodium Level 145 MEQ/L Potassium Level 3.5 MEQ/L Chloride Level 118 MEQ/L Carbon Dioxide Level 20.7 MEQ/L Anion Gap 6 MEQ/L Blood Urea Nitrogen 14 MG/DL Creatinine 0.99 MG/DL Estimat Glomerular Filtration 56 ML/MIN Rate Random Glucose 173 MG/DL Calcium Level 7.7 MG/DL Microbiology Date/Time Procedure Status Source Growth 03/16/17 16:40 Gram Stain - Final Resulted Wound Leg 03/16/17 16:40 Wound Culture - Preliminary Resulted Group D Enterococcus Gram Negative Reji Imaging Last Impressions Chest X-Ray 03/11/17 0000 Signed Impressions: Service Date/Time: February 10:04 - CONCLUSION: Normal examination. Left IJ central venous catheter in excellent position. Bradley Doe MD Physical Exam GENERAL: This is a well-nourished, well-developed patient, in no apparent distress. SKIN: No rashes, ecchymoses or lesions. Cool and dry. HEAD: Atraumatic. Normocephalic. No temporal or scalp tenderness. EYES: Pupils equal round and reactive. Extraocular motions intact. No scleral icterus. No injection or drainage. ENT: Nose without bleeding, purulent drainage or septal hematoma. Throat without erythema, tonsillar hypertrophy or exudate. Uvula midline. Airway patent. NECK: Trachea midline. Supple, nontender, no meningeal signs. CARDIOVASCULAR: RRR. RESPIRATORY: Clear to auscultation. Breath sounds equal bilaterally. No wheezes , rales, or rhonchi. GASTROINTESTINAL: Abdomen soft, non-tender, nondistended. No guarding. MUSCULOSKELETAL: RLE with dressing NEUROLOGICAL: Awake and alert. Grossly non focal Psych: cooperative IV line sites with no e.o infection/. CL new ok site. Assessment & Plan Remarks Sepsis present on admission controlled. Likely due to Cdiff present on admission as patient had nausea and ? diarrhea prior to admission per d.w pts daughter. RLE chronic ulcer. tendons exposed. Does not appear infected. h/o dog bite with secondary infection with MDR E.coli in RLE at site of dog bite. Cdiff positive diarrhea DM2 uncontrolled, with DKA on admission. Acute renal failure with underlying CKD: prerenal, sepsis, CKD secondary to DM. Anemia ? GI blood loss vs hemodilution. Recs Continue Oral vanco will need 2 weeks of antibiotics. Stop date entered. NO antibiotics for ulcer. Likely colonized. d/w patient only Cdiff treatment. No antibiotics for wound, only wound care at this pt. Will sign off please call back if any change in clinical condition or questions. Dori Blue MD Mar 18, 2017 14:54
--- NOTE | 2017-03-18 16:11 | PD.POD ---
Subjective Podiatric Problems 90 cm ulceration through muscle right medial calf. Pain scale used: 0-10 numeric scale Pain score: 2 Remarks Patient is a 66-year-old female who received a dog bite and underwent debridement. Her wound was extremely deep with necrotic tendon and muscle. She was taken to the OR yesterday evening for debridement of the wound with culture and sensitivity. Patient is growing to bacteria from the wound however we will treat it topically because of her C. difficile. Past Med/Surg/Social History Past Medical History HEENT: REPORTS HX OF: Recurrent sinusitis Endocrine: REPORTS HX OF: Diabetes mellitus Respiratory: REPORTS HX OF: Allergies/hay fever, Asthma, COPD Cardiovascular: REPORTS HX OF: Atrial fibrillation, Heart valve disease, Hypertension Genitourinary: REPORTS HX OF: Kidney disease, Past UTI Age at menarche: 13 Age at menopause: 45 history: Live births: 2 Musculoskeletal: REPORTS HX OF: Osteoporosis Psychiatric: REPORTS HX OF: Anxiety Disabilities: REPORTS HX OF: Hearing deficit, Vision deficit Past Surgical History HEENT: REPORTS HX OF: Tonsillectomy (1972) Cardiovascular: REPORTS HX OF: Angioplasty (08/2015), Coronary stent (08/2015) Gynecologic: REPORTS HX OF: delivery (1983), Hysterectomy (1993) Neurologic: REPORTS HX OF: Spinal surgery (L-5 1979 never decompression) Breast: DENIES HX OF: Mastectomy, bilateral, Mastectomy, left, Mastectomy, right Social History Smoking Status: Former Smoker Review of Systems Notes No changes in her 14 point review of systems exam from the previous visit Objective Vital Signs Vital Signs Date Time Temp Pulse Resp B/P Pulse Ox O2 Delivery O2 Flow Rate FiO2 03/18/17 12:00 98.1 68 18 150/67 98 03/18/17 08:00 97.9 67 20 154/69 97 03/18/17 07:57 96 Nasal Cannula 2.00 03/18/17 04:00 98.5 68 18 146/68 95 03/18/17 00:00 98.4 77 18 146/65 97 03/17/17 20:00 74 03/17/17 20:00 98.2 77 18 151/75 96 Coded Allergies: Darvon (Verified Allergy, Mild, RASH, 03/11/17) *MDRO Multi-Drug Resistant Organism (Verified Adverse Reaction, Unknown, ) 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 Medications and IVs Current Medications Sodium Chloride (NS 1000 ml Inj) 1,000 ml @ 2,000 mls/hr Q30M ONCE IV Last administered on 03/11/17 09:35; Start 03/11/17 at 09:09; Stop 03/11/17 at 09:38 ; Status DC Sodium Chloride (NS Flush) 2 ml UNSCH PRN IVF FLUSH AFTER USING IV ACCESS; Start 03/11/17 at 09:15; Stop 03/11/17 at 12:57; Status DC Insulin Human Regular 10 units 10 units ONCE ONCE IV PUSH Last administered on 03/11/17 10:13; Start 03/11/17 at 10:00; Stop 03/11/17 at 10:05; Status DC Sodium Chloride 1,000 ml @ 999 mls/hr BOLUS ONCE IV Last administered on 03/11 10:44; Start 03/11/17 at 10:00; Stop 03/11/17 at 11:00; Status DC Piperacillin Sod/ Tazobactam Sod 100 ml @ 200 mls/hr ONCE ONCE IV Last administered on 03/11/17 10:51; Start 03/11/17 at 10:45; Stop 03/11/17 at 11:14 ; Status DC Vancomycin HCl/ Sodium Chloride (Vancomycin Inj/ NS 250 ml Inj) 250 ml @ 250 mls/hr ONCE ONCE IV Last administered on 03/11/17 11:08; Start 03/11/17 at 10 :45; Stop 03/11/17 at 11:44; Status DC Dextrose (D50w (Vial) Inj) 25 ml UNSCH PRN IV PUSH SEE LABEL COMMENTS; Start at 10:45; Stop 03/11/17 at 12:56; Status DC Miscellaneous Information 1 1 ONCE ONCE XX Last administered on 03/11/17 10: 45; Start 03/11/17 at 10:45; Stop 03/11/17 at 10:46; Status DC Sodium Bicarbonate 154 meq/Sodium Chloride 1,000 ml @ 0 mls/hr Q0M IV Last administered on 03/11/17 18:36; Start 03/11/17 at 10:39 Insulin Human Regular/Sodium Chloride (NovoLIN R (IV INFUSION)/NS Inj) 100 ml @ 0 mls/hr TITRATE IV Last administered on 03/11/17 12:08; Start 03/11/17 at 11: 00; Stop 03/11/17 at 12:59; Status DC Dextrose (D50w (Vial) Inj) 25 ml UNSCH PRN IV PUSH SEE LABEL COMMENTS; Start at 11:00; Stop 03/12/17 at 10:05; Status DC Sodium Chloride (NS Flush) 2 ml UNSCH PRN IV FLUSH FLUSH AFTER USING IV ACCESS ; Start 03/11/17 at 11:30 Sodium Chloride (NS Flush) 2 ml BID IV FLUSH Last administered on 03/18/17 07: 49; Start 03/11/17 at 21:00 Acetaminophen (Tylenol) 650 mg Q6H PRN PO PAIN 1-6 AND/OR FEVER >101F Last administered on 03/12/17 22:29; Start 03/11/17 at 11:30 Pantoprazole Sodium (Protonix Inj) 40 mg DAILY IV Last administered on 08:26; Start 03/12/17 at 09:00; Stop 03/12/17 at 10:02; Status DC Ondansetron HCl (Zofran Inj) 4 mg Q6H PRN IV NAUSEA OR VOMITING Last administered on 03/14/17 21:38; Start 03/11/17 at 11:30 Bisacodyl (Dulcolax Supp) 10 mg DAILY PRN RECTAL CONSTIPATION; Start 03/11/17 at 11:30 Albuterol/ Ipratropium (Duoneb Neb) 1 ampule Q6HR NEB INH Last administered on 03/15/17 09:41; Start 03/11/17 at 16:00; Stop 03/15/17 at 16:00; Status DC Albuterol/ Ipratropium (Duoneb Neb) 1 ampule Q2HR NEB PRN INH WHEEZING Last administered on 03/15/17 20:56; Start 03/11/17 at 11:30 Heparin Sodium (Porcine) (Heparin Inj) 5,000 units Q8H SQ Last administered on 03/16/17 04:13; Start 03/11/17 at 13:00; Status Hold Miscellaneous Information 1 [id number] Last administered on 03/11/17 11:30; Start 03/11/17 at 11:30 Chlorhexidine Gluconate (Chlorhexidine 2% Cloth) Taper DAILY@04 TOP Last administered on 03/12/17 03:03; Start 03/12/17 at 04:00; Stop 03/08/18 at 03:59 Chlorhexidine Gluconate 3 pack 3 pack UNSCH PRN TOP HYGIENIC CARE; Start at 11:30 Aztreonam 1000 mg/ Sodium Chloride 100 ml @ 200 mls/hr Q8H IV Last administered on 03/11/17 14:36; Start 03/11/17 at 13:00; Stop 03/11/17 at 15:25 ; Status DC Metronidazole 100 ml @ 100 mls/hr Q8H IV Last administered on 03/11/17 14:36 ; Start 03/11/17 at 14:00; Stop 03/11/17 at 15:25; Status DC Pharmacy Profile Note 0 ml @ 0 mls/hr UNSCH OTHER ; Start 03/11/17 at 11:30; Stop 03/11/17 at 15:25; Status DC Sodium Chloride 1,000 ml @ 250 mls/hr Q4H IV Last administered on 03/11/17 14 :23; Start 03/11/17 at 12:30; Stop 03/13/17 at 17:50; Status DC Dextrose/Sodium Chloride (D5W-NS 1000 ml Inj) 1,000 ml @ 200 mls/hr Q5H IV Last administered on 03/13/17 14:30; Start 03/11/17 at 12:30; Stop 03/13/17 at 17:50; Status DC Insulin Human Regular 6.8 units 6.8 units BOLUS ONCE IV PUSH Last administered on 03/11/17 12:47; Start 03/11/17 at 12:30; Stop 03/11/17 at 12:31 ; Status DC Insulin Human Regular 100 units/ Sodium Chloride 100 ml @ 0 mls/hr TITRATE IV Last administered on 03/11/17 23:29; Start 03/11/17 at 11:45; Stop 03/12/17 at 05:03; Status DC Potassium Chloride 100 ml @ 100 mls/hr Q1H PRN IV SEE LABEL COMMENTS Last administered on 03/11/17 19:50; Start 03/11/17 at 11:45; Stop 03/13/17 at 17:50 ; Status DC Potassium Chloride 100 ml @ 50 mls/hr Q2H PRN IV SEE LABEL COMMENTS; Start at 11:45; Stop 03/13/17 at 17:51; Status DC Potassium Chloride 100 ml @ 100 mls/hr Q1H PRN IV SEE LABEL COMMENTS Last administered on 03/11/17t 23:40; Start 03/11/17 at 11:45; Stop 03/13/17 at 17:51 ; Status DC Potassium Chloride 100 ml @ 100 mls/hr Q1H PRN IV SEE LABEL COMMENTS; Start at 11:45; Stop 03/13/17 at 17:51; Status DC Potassium Chloride 100 ml @ 50 mls/hr Q2H PRN IV SEE LABEL COMMENTS; Start at 11:45; Stop 03/13/17 at 17:51; Status DC Potassium Chloride 100 ml @ 50 mls/hr Q2H PRN IV SEE LABEL COMMENTS; Start at 11:45; Stop 03/13/17 at 17:51; Status DC Potassium Chloride 100 ml @ 50 mls/hr Q2H PRN IV SEE LABEL COMMENTS; Start at 11:45; Stop 03/13/17 at 17:51; Status DC Potassium Chloride (KCl 20 Meq Premix Inj) 100 ml @ 50 mls/hr Q2H PRN IV SEE LABEL COMMENTS; Start 03/11/17 at 11:45; Stop 03/13/17 at 17:51; Status DC Sodium Bicarbonate (Sodium Bicarbonate 8.4% Inj) 100 meq UNSCH PRN IV SEE LABEL COMMENTS; Start 03/11/17 at 11:45; Stop 03/13/17 at 17:51; Status DC Sodium Bicarbonate 50 meq 50 meq UNSCH PRN IV SEE LABEL COMMENTS; Start at 11:45; Stop 03/11/17 at 18:18; Status DC Sodium Phosphate/ Sodium Chloride (Sodium Phosphate Inj/NS Inj) 105 ml @ 25 mls /hr UNSCH PRN IV SEE LABEL COMMENTS; Start 03/11/17 at 11:45; Stop 03/13/17 at 17:51; Status DC Sodium Bicarbonate (Sodium Bicarbonate 8.4% Inj) 100 meq ONCE ONCE IV PUSH Last administered on 03/11/17t 13:14; Start 03/11/17 at 12:45; Stop 03/11/17 at 12:55; Status DC Sodium Bicarbonate (Sodium Bicarbonate 8.4% Inj) 100 meq ONCE ONCE IV PUSH Last administered on 03/11/17 15:03; Start 03/11/17 at 14:45; Stop 03/11/17 at 14:46; Status DC Miscellaneous Medication (ASP Crit: Path resist to other, cult proven) 1 UNSCH X1 PRN .XX PHARMACY DOCUMENTATION; Start 03/11/17 at 15:30; Stop 03/12/17 at 15 :29; Status DC Miscellaneous Medication 1 1 UNSCH X1 PRN XX PHARMACY DOCUMENTATION; Start at 15:30; Stop 03/12/17 at 15:29; Status DC Meropenem/Sodium Chloride (Merrem Inj/NS Inj) 100 ml @ 200 mls/hr Q8H IV Last administered on 03/14/17 08:12; Start 03/11/17 at 16:00; Stop 03/14/17 at 10:37 ; Status DC Sodium Bicarbonate (Sodium Bicarbonate 8.4% Inj) 50 meq UNSCH PRN IV SEE LABEL COMMENTS; Start 03/11/17 at 18:17; Stop 03/13/17 at 17:56; Status DC Insulin Detemir (Levemir Inj) 4 units Q12HR SQ Last administered on 03/18/17 07:49; Start 03/12/17 at 09:00 Dextrose (D50w (Vial) Inj) 25 ml UNSCH PRN IV PUSH HYPOGLYCEMIA-SEE COMMENTS; Start 03/12/17 at 05:15; Stop 03/13/17 at 17:54; Status DC Glucagon (Glucagon Inj) 1 mg UNSCH PRN OTHER HYPOGLYCEMIA-SEE COMMENTS; Start 03/12/17 at 05:15; Stop 03/13/17 at 17:54; Status DC Insulin Human Regular (NovoLIN R SUPPLEMENTAL SCALE) 1 ACHS SLIDING SCALE SQ Last administered on 03/13/17 16:27; Start 03/12/17 at 07:00; Stop 03/13/17 at 17:54; Status DC Amlodipine Besylate (Norvasc) 10 mg DAILY PO Last administered on 03/18/17 07: 46; Start 03/12/17 at 09:45 Aspirin (Aspirin Chew) 81 mg DAILY CHEW Last administered on 03/18/17 07:46; Start 03/12/17 at 09:45 Isosorbide Mononitrate (Imdur) 30 mg DAILY PO Last administered on 03/18/17 07 :46; Start 03/12/17 at 09:45 Metoprolol Tartrate (Lopressor) 50 mg BID PO Last administered on 03/18/17 07: 46; Start 03/12/17 at 09:45 Pravastatin Sodium (Pravachol) 40 mg DAILY PO Last administered on 03/18/17 07 :46; Start 03/12/17 at 09:45 Acetaminophen (Ofirmev Inj) 1,000 mg Q6H PRN IV PAIN SCALE 7 TO 10 Last administered on 03/13/17 05:46; Start 03/12/17 at 10:00; Stop 03/13/17 at 10:00 ; Status DC Famotidine (Pepcid Inj) 20 mg Q12HR IV PUSH Last administered on 03/12/17 20: 50; Start 03/12/17 at 10:15; Stop 03/13/17 at 08:21; Status DC Metoprolol Tartrate (Lopressor Inj) 2.5 mg Q6H PRN IV PUSH SBP>160, DBP>90 Last administered on 03/12/17 10:45; Start 03/12/17 at 10:30; Stop 03/13/17 at 17:56; Status DC Sodium Hypochlorite ([place] 0.25% Soln) 500 ml BID TOPICAL Last administered on 03/16/17 09:11; Start 03/12/17 at 21:00 Famotidine (Pepcid Inj) 10 mg Q12HR IV PUSH Last administered on 03/15/17 08: 39; Start 03/13/17 at 09:00; Stop 03/15/17 at 21:18; Status DC Dextrose (D50w (Vial) Inj) 25 ml UNSCH PRN IV PUSH HYPOGLYCEMIA-SEE COMMENTS; Start 03/13/17 at 17:45 Glucagon (Glucagon Inj) 1 mg UNSCH PRN OTHER HYPOGLYCEMIA-SEE COMMENTS; Start 03/13/17 at 17:45 Insulin Aspart 1 1 ACHS SLIDING SCALE SQ Last administered on 03/18/17 06:27 ; Start 03/13/17 at 21:00 Sodium Chloride (NS 1000 ml Inj) 1,000 ml @ 70 mls/hr [id number] IV Last administered on 03/16/17 06:25; Start 03/13/17 at 18:53; Stop 03/16/17 at 19:59 ; Status DC Metoclopramide HCl (Reglan Inj) 5 mg TIDAC IV PUSH Last administered on 12:00; Start 03/14/17 at 08:00 Alteplase, Recombinant (Cathflo Activase Inj) 2 mg ONCE ONCE INTRACATH Last administered on 03/13/17 21:48; Start 03/13/17 at 20:00; Stop 03/13/17 at 20:01 ; Status DC Gabapentin (Neurontin) 100 mg TID PO Last administered on 03/18/17 13:00; Start 03/14/17 at 09:00 Acetaminophen/ Hydrocodone Bitart ([place] 5-325 Mg) 1 tab Q4H PRN PO leg pain 1 -5; Start 03/13/17 at 21:00 Acetaminophen/ Hydrocodone Bitart ([place] 7.5-325 Mg) 1 tab Q4H PRN PO leg pain 6-10 Last administered on 03/18/17 06:28; Start 03/13/17 at 21:00 Morphine Sulfate (Morphine Inj) 2 mg Q3H PRN IV PUSH pain if vomiting/NPO Last administered on 03/14/17 04:17; Start 03/13/17 at 21:00 Metronidazole (Flagyl) 500 mg Q8H PO ; Start 03/14/17 at 12:00; Stop 03/14/17 at 12:00; Status DC Vancomycin HCl 125 mg 125 mg QID PO Last administered on 03/18/17 13:00; Start 03/14/17 at 13:00; Stop 03/28/17 at 12:59 Potassium Chloride (KCl 20 Meq Premix Inj) 100 ml @ 50 mls/hr ONCE ONCE IV Last administered on 03/14/17 14:47; Start 03/14/17 at 15:00; Stop 03/14/17 at 16:59; Status DC Lisinopril (Prinivil) 20 mg DAILY PO ; Start 03/16/17 at 09:00; Stop 03/16/17 at 09:00; Status DC Non-Formulary Medication 150 mg DAILY PRN PO REFLUX; Start 03/15/17 at 21:15; Stop 03/15/17 at 21:18; Status DC Lisinopril (Prinivil) 20 mg DAILY PO Last administered on 03/18/17 07:46; Start 03/16/17 at 21:00 Non-Formulary Medication 150 mg DAILY PO ; Start 03/15/17 at 21:15; Status UNV Albuterol/ Ipratropium (Duoneb Neb) 1 ampule QID NEB NEB Last administered on 03/18/17 11:01; Start 03/16/17 at 08:00 Famotidine (Pepcid) 20 mg DAILY PO Last administered on 03/18/17 07:45; Start 03/16/17 at 09:00 Bupivacaine HCl (Marcaine Pf 0.5% Inj) 30 ml STK-MED ONCE .ROUTE Last administered on 03/16/17 16:38; Start 03/16/17 at 15:59; Stop 03/16/17 at 16:00 ; Status DC Sodium Chloride (NS Flush) 2 ml UNSCH PRN IV FLUSH FLUSH AFTER USING IV ACCESS ; Start 03/16/17 at 17:00 Sodium Chloride (NS Flush) 2 ml BID IV FLUSH Last administered on 03/18/17 07: 49; Start 03/16/17 at 21:00 Miscellaneous Information (Post-op Orders (for Pharmacy)) STAT ONCE XX ; Start 03/16/17 at 17:00; Stop 03/16/17 at 17:07; Status DC Naloxone HCl (Narcan Inj) 0.4 mg UNSCH PRN IV SEE LABEL COMMENTS; Start at 17:00 Fentanyl Citrate (fentaNYL INJ) 100 mcg STK-MED ONCE .ROUTE ; Start 03/16/17 at 17:14; Stop 03/16/17 at 17:15; Status DC Miscellaneous Information ALL NURSING DEPARTME... UNSCH PRN .XX SEE LABEL COMMENTS; Start 03/16/17 at 17:08; Stop 03/17/17 at 17:07; Status DC Sodium Chloride (NS 250 ml Inj) 250 ml @ 15 mls/hr ONCE ONCE IV Last administered on 03/17/17 00:09; Start 03/16/17 at 20:00; Stop 03/17/17 at 12:39 ; Status DC Diphenhydramine HCl (Benadryl) 25 mg Q4H PRN PO SEE LABEL COMMENTS; Start 03/16 at 20:00; Stop 03/17/17 at 00:01; Status DC Furosemide (Lasix Inj) 20 mg ONCE ONCE IV Last administered on 03/17/17t 03:15 ; Start 03/16/17 at 20:00; Stop 03/16/17 at 20:09; Status DC Iohexol (Omnipaque 350 Inj) 100 ml STK-MED ONCE IV ; Start 03/15/17 at 15:34; Stop 03/18/17 at 12:34; Status DC Other Results Laboratory Tests Test 03/16/17 03/17/17 20:10 08:00 Hemoglobin 7.4 GM/DL 9.7 GM/DL Hematocrit 21.6 % 28.6 % White Blood Count 7.4 TH/MM3 Red Blood Count 3.35 MIL/MM3 Mean Corpuscular Volume 85.5 FL Mean Corpuscular Hemoglobin 29.1 PG Mean Corpuscular Hemoglobin 34.1 % Concent Red Cell Distribution Width 14.9 % Platelet Count 184 TH/MM3 Mean Platelet Volume 9.1 FL Neutrophils (%) (Auto) 76.2 % Lymphocytes (%) (Auto) 15.6 % Monocytes (%) (Auto) 7.7 % Eosinophils (%) (Auto) 0.4 % Basophils (%) (Auto) 0.1 % Neutrophils # (Auto) 5.7 TH/MM3 Lymphocytes # (Auto) 1.2 TH/MM3 Monocytes # (Auto) 0.6 TH/MM3 Eosinophils # (Auto) 0.0 TH/MM3 Basophils # (Auto) 0.0 TH/MM3 CBC Comment DIFF FINAL Differential Comment Laboratory Tests Test 03/17/17 18:00 Sodium Level 145 MEQ/L Potassium Level 3.5 MEQ/L Chloride Level 118 MEQ/L Carbon Dioxide Level 20.7 MEQ/L Anion Gap 6 MEQ/L Blood Urea Nitrogen 14 MG/DL Creatinine 0.99 MG/DL Estimat Glomerular Filtration 56 ML/MIN Rate Random Glucose 173 MG/DL Calcium Level 7.7 MG/DL Microbiology Date/Time Procedure Status Source Growth 03/16/17 16:40 Gram Stain - Final Resulted Wound Leg 03/16/17 16:40 Wound Culture - Preliminary Resulted Group D Enterococcus Gram Negative Reji Exam-Podiatry Constitutional General appearance: comfortable Nutritional status: overweight Orientation: alert and oriented x3 Dermatological Exam Skin Temp - Right: Within Normal Limits Skin Texture - Right: Within Normal Limits Skin Elasticity - Right: Within Normal Limits Skin Tugor - Right: Within Normal Limits Hair Growth - Right: Within Normal Limits Pigmentation - Right: Within Normal Limits Skin Temp - Left: Within Normal Limits Skin Texture - Left: Within Normal Limits Skin Elasticity - Left: Within Normal Limits Skin Tugor - Left: Within Normal Limits Hair Growth - Left: Within Normal Limits Pigmentation - Left: Within Normal Limits Ulcers: Location/Measurements Dressing dry and intact right leg. Ulceration is down to muscle and tendon. Vascular/Lymphatic Exam R Dorsails Pedis: Palpable L Dorsails Pedis: Palpable R Posterior Tibial: Palpable L Posterior Tibial: Palpable Neurologic Exam Present on right: Tingling, Paraesthesia Present on left: Tingling, Paraesthesia Muscle Strength Dorsiflexion (Right): Normal Plantarflexion (Right): Normal Inversion (Right): Normal Eversion (Right): Normal Digital (Right): Normal Dorsiflexion (Left): Normal Plantarflexion (Left): Normal Inversion (Left): Normal Eversion (Left): Normal Digital (Left): Normal Foot Range of Motion Dorsiflexion (Right): Normal Plantarflexion (Right): Normal Inversion (Right): Normal Eversion (Right): Normal Digital (Right): Normal Dorsiflexion (Left): Normal Plantarflexion (Left): Normal Inversion (Left): Normal Eversion (Left): Normal Digital (Left): Normal Assessment & Plan Diagnosis: (1) Diabetes mellitus with peripheral vascular disease Status: Chronic (2) 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 Continue Optifoam gentle AG dressings. Follow-up with me in the wound center after discharge. Okay to discharge from a podiatry and wound care standpoint pending medical clearance. Discussed with Dr. Craig. 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
[2017-03-18] MEDS ORDERED: ALBUMIN HUMAN 25% 12.5 GM/50 ML BAGP IV ONE (16:30)
[2017-03-18] MEDS ORDERED: FUROSEMIDE 40 MG/4 ML VIAL IV PUSH ONE (16:30)
--- NOTE | 2017-03-18 16:44 | HHI.PR ---
Subjective Remarks Follow-up for lower extremity wound and anasarca. The patient is doing okay today. Her was able to get a wheelchair ramp built at her house. She continues to have lower extremity swelling, would like to try Lasix and then try to ambulate with PT. Objective Vitals Vital Signs Date Time Temp Pulse Resp B/P Pulse Ox O2 Delivery O2 Flow Rate FiO2 03/18/17 12:00 98.1 68 18 150/67 98 03/18/17 08:00 97.9 67 20 154/69 97 03/18/17 07:57 96 Nasal Cannula 2.00 03/18/17 04:00 98.5 68 18 146/68 95 03/18/17 00:00 98.4 77 18 146/65 97 03/17/17 20:00 74 03/17/17 20:00 98.2 77 18 151/75 96 I/O 03/17/17 03/17/17 03/17/17 03/18/17 03/18/17 03/18/17 07:00 15:00 23:00 07:00 15:00 23:00 Intake Total 240 ml 480 ml 480 ml 480 ml Output Total 700 ml 950 ml Balance -460 ml -470 ml 480 ml 480 ml Intake Oral 240 ml 480 ml 480 ml 480 ml Output Urine Total 700 ml 950 ml # Voids 0 1 # Bowel Movements 0 0 0 0 Result Diagram: 03/17/17 0800 03/17/17 1800 Imaging Last Impressions Aorta w/Runoff CTA 03/15/17 0000 Signed Impressions: Service Date/Time: Wednesday, March 15, 2017 15:34 - CONCLUSION: 1. Inflow is patent down to the common femorals bilaterally despite regional calcification. 2. In the right lower extremity, there is some atherosclerotic irregularity at the adductor hiatus but the profunda, SFA and popliteal are patent down to the trifurcation with dominant runoff via the posterior tibial. 3. In the left lower extremity, some minimal narrowing of the proximal SFA but the common femoral, profunda, SFA and popliteal are patent down to the trifurcation with dominant runoff via the posterior tibial and peroneal. Anterior tibial occludes proximally. 4. Moderate sized bilateral pleural effusions with concomitant atelectatic changes. 5. 2.5 cm fat-containing lesion in the right lower lobe adjacent to the esophagus and posterior to the intrahepatic IVC. 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 6. Mixed density 3.7 cm mass lesion associated with the left adrenal which contains calcium and fat and may represent a myelolipoma which has previously bleed. 7. Diffuse anasarca with fluid in the deep pelvis and bilateral pleural effusions are suggesting right heart insufficiency. 8. Cortical scarring in the upper pole of the right kidney. 9. Nonspecific enhancing areas in the left and right hepatic lobes. These are overtly benign and may represent small hemangiomas. Preet Chavez MD Chest X-Ray 03/11/17 0000 Signed Impressions: Service Date/Time: , March 11, 2017 10:04 - CONCLUSION: Normal examination. Left IJ central venous catheter in excellent position. Bradley Doe MD Objective Remarks GENERAL: Well-developed well-nourished. In no acute distress. SKIN: Warm and dry. Right lower extremity wound with clean dressing. HEENT: Normocephalic. Pupils equal and round. Mucous membranes pink and moist. CARDIOVASCULAR: Regular rate and rhythm. No murmur appreciated. RESPIRATORY: No accessory muscle use. Clear to auscultation. Breath sounds equal bilaterally. GASTROINTESTINAL: Abdomen soft, non-tender, nondistended. Bowel sounds x4. MUSCULOSKELETAL: Bilateral lower extremity anasarca. No clubbing or cyanosis. NEUROLOGICAL: Awake and alert. No focal neurological deficits. Moves upper and lower extremities spontaneously. Normal speech. PSYCHIATRIC: Appropriate mood and affect; insight and judgment normal. Date of Removal: Mar 14, 2017 A/P Problem List: (1) Clostridium difficile colitis ICD Code: A04.7 Status: Acute (2) Nausea & vomiting ICD Code: R11.2 Status: Resolved (3) Lactic acid acidosis ICD Code: E87.2 Status: Chronic (4) Anemia ICD Code: D64.9 Status: Chronic (5) COPD (chronic obstructive pulmonary disease) ICD Code: J44.9 Status: Chronic (6) HTN (hypertension) ICD Code: I10 Status: Chronic (7) IDDM (insulin dependent diabetes mellitus) ICD Code: E11.9 Status: Chronic (8) Hypothermia ICD Code: T68.XXXA Status: Resolved (9) Sepsis ICD Code: A41.9 Status: Acute (10) Metabolic acidosis ICD Code: E87.2 Status: Resolved (11) DKA (diabetic ketoacidoses) ICD Code: E13.10 Status: Resolved (12) Dog bite of multiple sites of right lower extremity ICD Code: S81.851A Status: Chronic (13) Hypertension ICD Code: I10 Status: Chronic (14) Leukocytosis ICD Code: D72.829 Status: Acute (15) CONOR (acute kidney injury) ICD Code: N17.9 Status: Acute (16) Diarrhea ICD Code: R19.7 Status: Acute (17) CAD (coronary artery disease) ICD Code: I25.10 Status: Chronic (18) Anemia, iron deficiency ICD Code: D50.9 Status: Chronic Assessment and Plan 66-year-old female with: -C.difficile Colitis: pt with multiple episodes of diarrhea, Cdiff + on 03/13. Infectious disease consulted. Started oral vanco 125mg po q6h [id number] (stop date 03/28). Monitor BMs. Monitor BMP. Diet as tolerated. Leukocytosis resolved. Clinically improved. -Severe right lower extremity wound s/p dog bite previous admission, had wound vac on at home (placed 03/02), now dressing changes per plastic. Concern for wound infection on admission, no wound culture. S/p plastic eval with Dr. Moore who felt wound did not appear infected. Blood cultures NGTD. UA, cxr neg. Check prealbumin level to assess nutrition (pending). Optimize glucose control and nutrition. I consulted wound care/podiatry, Dr. Read for outpatient wound management, consideration to hyperbaric oxygen therapy. s/p OR debridement to promote wound healing. CTA aorta with runoff noted - sufficient blood flow. Cleared by Dr. Read for outpatient follow-up with him for further wound management. -Type 2 DM, uncontrolled but improving trends - HbA1c 7.1. s/p diabetic education. cont levemir 4 units sq q 12 hr, to hold if not taking meals or glucose<120. SSI low novolog AC, HS, 03:00. -Hypernatremia, hypovolemic - improving. Na within normal limits today, will HLIV as she now has good PO intake as has anasarca, likely d/t low albumin state. -CONOR - improving, nonoliguric, cont IVF, Cr ~1. Avoid nephrotoxins. -Anemia of fe deficiency (possible underlying myelodysplastic disorder as per Dr. Schmidt's outpatient evaluation), also of chronic illness, hb improved s/p transfusion, monitor CBC, Hgb 7.7. Bleeding, transfused 2 units pRBCs, hemoglobin improved to 9.7. -CAD, history stents, LHC in 2014 with stent to the LAD & RCA per Dr. Reddy -cont metoprolol 50 mg twice a day, aspirin 81 mg/day Isordil. Patient 's home insurance agent consulted, recommended stopping Effient and starting aspirin and Plavix. -COPD/Asthma-without acute exacerbation. Does not use home O2. Duo nebs QID scheduled, every 2 hours when necessary, O2 via NC as needed. consult pulmonology as well (pt does not follow with pulm). -CHF, chronic diastolic. Echo 03/13 shows preserved EF, large left pleural effusion. patient denies hx CHF. she has preserved EF. -Anasarca - suspect due to hypoalbuminemia. she has preserved EF, and no hx liver disease. Diuresis with IV Lasix with albumin. Insert Lim to monitor diuresis. -B/l plerual effusions, likely due to the anasarca. asymptomatic currently, consider thoracentesis. Consulted pulmonology. -Hypertension-improved control. cont Norvasc 10 mg/day, metoprolol 50 mg twice a day, aspirin 81 mg/day Isordil resumed. resumed lisinopril. -Generalized weakness - continue PT. weakness exacerbated by RLE wound. even prior to admission patient was unable to navigate the 3 steps to her house. Optimally she could be DC'ed to home environment to start hyperbaric O2 as soon as possible. her has built a wheelchair ramp. Diuresis as above. -Severe malnutrition - hypoalbuminemia d/t poor PO intake, prealbumin 13, will consulted dietitian for recs, appreciate input, continue supplementation. -Severe metabolic acidosis, resolved. -Acute metabolic encephalopathy - resolved. -Diabetic Peripheral neuropathy - started on neurontin. lortab prn for pain. -Nausea and vomiting -now resolved. -Sepsis due to c dif colitis, sepsis resolved. -Diabetic ketoacidosis, resolved. Was likely triggered by the colitis. -GERD-resume zantac PO. DVT Prophylaxis-Heparin 5000 SQ - held for now due to bleeding. Written by Reji Valerio, acting as scribe for Dr. Prabhakar on 03/18/17 at 16:43. Attending Statement This note was transcribed by scribe. I, Dr. Uzma Prabhakar personally performed the history, physical exam, and medical decision making; and confirmed the accuracy of the information in the transcribed note. Problem Qualifiers (1) Hypothermia: Qualified Code: T68.XXXA - Hypothermia, initial encounter (2) Sepsis: Qualified Code: A41.9 - Sepsis, due to unspecified organism (3) DKA (diabetic ketoacidoses): Qualified Code: E13.10 - Diabetic ketoacidosis without coma associated with other specified diabetes mellitus (4) CAD (coronary artery disease): Qualified Code: I25.10 - Coronary artery disease involving [place] coronary artery of [place] heart without angina pectoris Reji Valerio Mar 18, 2017 16:43 Uzma Prabhakar MD March 30, 2017 11:10
[2017-03-19] VITALS (7 sets, daily range): BP systolic 121–165; BP diastolic 62–75; PULSE 64–77; RESP 16–20; TEMP 97.7–98.9; O2SAT 93–97
[2017-03-19] MEDS: ACETAMINOPHEN/HYDROcodone 325 MG/7.5 MG TAB PO PRN ×4 (00:14→17:00)
[2017-03-19] MEDS: CHLORHEXIDINE GLUCONATE 2 % 1 PACK (2 CLOTHS) TOP SCH (04:00)
[2017-03-19] MEDS: INSULIN ASPART SUPPLEMENTAL SCALE SQ SCH ×4 (07:00→21:00)
[2017-03-19] MEDS: RESP: ALBUTEROL 2.5 MG/IPRATROPIUM 0.5 MG NEB (SCH) NEB ×4 (08:01→19:39)
[2017-03-19] MEDS: VANCOMYCIN 500 MG VIAL (FOR ORAL USE ONLY) PO SCH ×4 (08:59→21:08)
[2017-03-19] MEDS: SODIUM CHLORIDE 0.9% FLUSH 10 ML FLUSH IV FLUSH SCH ×4 (09:00→21:00)
[2017-03-19] MEDS: LISINOPRIL 20 MG TAB PO SCH (09:01)
[2017-03-19] MEDS: FAMOTIDINE 20 MG TAB PO SCH (09:01)
[2017-03-19] MEDS: METOPROLOL TARTRATE 50 MG TAB PO SCH ×2 (09:01→21:08)
[2017-03-19] MEDS: ISOSORBIDE MONONITRATE 30 MG TAB PO SCH (09:01)
[2017-03-19] MEDS: ASPIRIN 81 MG CHEW TAB CHEW SCH (09:01)
[2017-03-19] MEDS: PRAVASTATIN SOD 40 MG TAB PO SCH (09:01)
[2017-03-19] MEDS: METOCLOPRAMIDE HCL 10 MG/2 ML VIAL IV PUSH SCH ×3 (09:03→17:01)
[2017-03-19] MEDS: GABAPENTIN 100 MG CAP PO SCH ×3 (09:03→17:01)
[2017-03-19] MEDS: INSULIN DETEMIR 100 UNITS/ML VIAL SQ SCH ×2 (09:04→21:11)
[2017-03-19] MEDS: SODIUM HYPOCHLORITE 0.25% 500 ML BTL TOPICAL SCH ×2 (09:04→21:00)
--- NOTE | 2017-03-19 09:14 | HHI.PR ---
Subjective Remarks ALERT NO SOB AT REST SAT OK ON N/C Objective Vital Signs Date Time Temp Pulse Resp B/P Pulse Ox O2 Delivery O2 Flow Rate FiO2 03/19/17 08:01 96 03/19/17 08:00 97.8 65 20 165/75 95 03/19/17 04:00 97.7 64 20 145/67 97 03/19/17 00:00 98.4 68 20 136/62 96 03/18/17 20:00 98.3 82 20 135/74 97 03/18/17 20:00 81 03/18/17 19:25 97 Nasal Cannula 2.00 03/18/17 16:00 98.0 77 20 141/66 95 03/18/17 12:00 98.1 68 18 150/67 98 I/O 03/18/17 03/18/17 03/18/17 03/19/17 03/19/17 03/19/17 07:00 15:00 23:00 07:00 15:00 23:00 Intake Total 480 ml 720 ml 240 ml 360 ml Output Total 300 ml 625 ml Balance 480 ml 720 ml -60 ml -265 ml Intake Oral 480 ml 720 ml 240 ml 360 ml Output Urine Total 300 ml 625 ml # Voids 1 1 # Bowel Movements 0 0 0 0 Result Diagram: 03/17/17 0800 03/17/17 1800 Objective Remarks GENERAL: SKIN: Warm and dry. HEAD: Atraumatic. Normocephalic. EYES: Pupils equal and round. No scleral icterus. No injection or drainage. ENT: No nasal bleeding or discharge. Mucous membranes pink and moist. NECK: Trachea midline. No JVD. CARDIOVASCULAR: Regular rate and rhythm. RESPIRATORY: No accessory muscle use. Clear to auscultation. Breath sounds equal bilaterally. GASTROINTESTINAL: Abdomen soft, non-tender, nondistended. Hepatic and splenic margins not palpable. MUSCULOSKELETAL: Extremities without clubbing, cyanosis, or edema. No obvious deformities. NEUROLOGICAL: Awake and alert. No obvious cranial nerve deficits. Motor grossly within normal limits. Five out of 5 muscle strength in the arms and legs. Normal speech. PSYCHIATRIC: Appropriate mood and affect; insight and judgment normal. Assessment and Plan Assessment and Plan COPD DOG BITE PLAN O2 NEEDED BRONCHODILATOR THERAPY INCREASE ACTIVITY Sylvia Ward MD Mar 19, 2017 09:14
--- NOTE | 2017-03-19 17:36 | PD.CARD.PN ---
Subjective Subjective Remarks No CP or SOB today, dx w LE infection Objective Medications Current Medications Medications (Trade) Dose Ordered Sig/Marie Route Start Time Stop Time Status Last Admin (Sodium Bicarbonate 8.4% Inj/NS 1000 ml Inj) 1,000 ml @ 0 mls/hr Q0M IV 03/11/17 10:39 03/11/17 18:36 (NS Flush) 2 ml UNSCH PRN IV FLUSH 03/11/17 11:30 (NS Flush) 2 ml BID IV FLUSH 03/11/17 21:00 03/18/17 21:16 (Tylenol) 650 mg Q6H PRN PO 03/11/17 11:30 03/12/17 22:29 (Zofran Inj) 4 mg Q6H PRN IV 03/11/17 11:30 03/14/17 21:38 (Dulcolax Supp) 10 mg DAILY PRN RECTAL 03/11/17 11:30 (Heparin Inj) 5,000 units Q8H SQ 03/11/17 13:00 Hold 03/16/17 04:13 Miscellaneous Information 1 Q361D XX 03/11/17 11:30 03/11/17 11:30 (Chlorhexidine 2% Cloth) Taper DAILY@04 TOP 03/12/17 04:00 03/08/18 03:59 03/12/17 03:03 (Chlorhexidine 2% Cloth) 3 pack UNSCH PRN TOP 03/11/17 11:30 (Levemir Inj) 4 units Q12HR SQ 03/12/17 09:00 03/19/17 09:04 (Norvasc) 10 mg DAILY PO 03/12/17 09:45 03/19/17 09:03 (Aspirin Chew) 81 mg DAILY CHEW 03/12/17 09:45 03/19/17 09:01 (Imdur) 30 mg DAILY PO 03/12/17 09:45 03/19/17 09:01 (Lopressor) 50 mg BID PO 03/12/17 09:45 03/19/17 09:01 (Pravachol) 40 mg DAILY PO 03/12/17 09:45 03/19/17 09:01 ([place] 0.25% Soln) 500 ml BID TOPICAL 03/12/17 21:00 03/19/17 09:04 (D50w (Vial) Inj) 25 ml UNSCH PRN IV PUSH 03/13/17 17:45 (Glucagon Inj) 1 mg UNSCH PRN OTHER 03/13/17 17:45 (Reglan Inj) 5 mg TIDAC IV PUSH 03/14/17 08:00 03/19/17 17:01 (Neurontin) 100 mg TID PO 03/14/17 09:00 03/19/17 17:01 ([place] 5-325 Mg) 1 tab Q4H PRN PO 03/13/17 21:00 ([place] 7.5-325 Mg) 1 tab Q4H PRN PO 03/13/17 21:00 03/19/17 17:00 (Morphine Inj) 2 mg Q3H PRN IV PUSH 03/13/17 21:00 03/14/17 04:17 (VANCOMYCIN for oral use only) 125 mg QID PO 03/14/17 13:00 03/28/17 12:59 03/19/17 17:00 (Prinivil) 20 mg DAILY PO 03/16/17 21:00 03/19/17 09:01 (Pepcid) 20 mg DAILY PO 03/16/17 09:00 03/19/17 09:01 (NS Flush) 2 ml UNSCH PRN IV FLUSH 03/16/17 17:00 (NS Flush) 2 ml BID IV FLUSH 03/16/17 21:00 03/19/17 09:00 (Narcan Inj) 0.4 mg UNSCH PRN IV 03/16/17 17:00 Vital Signs / I&O Vital Signs Date Time Temp Pulse Resp B/P Pulse Ox O2 Delivery O2 Flow Rate FiO2 03/19/17 12:00 98.2 70 20 158/67 93 03/19/17 08:01 96 03/19/17 08:00 97.8 65 20 165/75 95 03/19/17 04:00 97.7 64 20 145/67 97 03/19/17 00:00 98.4 68 20 136/62 96 03/18/17 20:00 98.3 82 20 135/74 97 03/18/17 20:00 81 03/18/17 19:25 97 Nasal Cannula 2.00 I/O 03/18/17 03/18/17 03/18/17 03/19/17 4/21/17 4/21/17 07:00 15:00 23:00 07:00 15:00 23:00 Intake Total 480 ml 720 ml 240 ml 360 ml Output Total 300 ml 625 ml Balance 480 ml 720 ml -60 ml -265 ml Intake Oral 480 ml 720 ml 240 ml 360 ml Output Urine Total 300 ml 625 ml # Voids 1 1 # Bowel Movements 0 0 0 0 Physical Exam GENERAL: In NAD SKIN: Warm and dry. HEAD: Normocephalic. EYES: No scleral icterus. No injection or drainage. NECK: Supple, trachea midline. No JVD or lymphadenopathy. CARDIOVASCULAR: Regular rate and rhythm without murmurs, gallops, or rubs. RESPIRATORY: Breath sounds equal bilaterally. No accessory muscle use. GASTROINTESTINAL: Abdomen soft, non-tender, nondistended. MUSCULOSKELETAL: No cyanosis, or edema. RLE dressing intact Laboratory Laboratory Tests Test 03/15/17 03/15/17 03/16/17 03/16/17 05:35 18:45 05:55 22:13 Magnesium Level 1.5 MG/DL Prothrombin Time 10.2 SEC Prothromb Time International 0.9 RATIO Ratio Hemoglobin A1c 7.1 % Prealbumin 13 MG/DL Blood Type B NEGATIVE Antibody Screen NEGATIVE Crossmatch Leukocyte-Reduced Red Blood Cells Blood Bank Comment Test 03/17/17 03/17/17 08:00 18:00 White Blood Count 7.4 TH/MM3 Red Blood Count 3.35 MIL/MM3 Hemoglobin 9.7 GM/DL Hematocrit 28.6 % Mean Corpuscular Volume 85.5 FL Mean Corpuscular Hemoglobin 29.1 PG Mean Corpuscular Hemoglobin 34.1 % Concent Red Cell Distribution Width 14.9 % Platelet Count 184 TH/MM3 Mean Platelet Volume 9.1 FL Neutrophils (%) (Auto) 76.2 % Lymphocytes (%) (Auto) 15.6 % Monocytes (%) (Auto) 7.7 % Eosinophils (%) (Auto) 0.4 % Basophils (%) (Auto) 0.1 % Neutrophils # (Auto) 5.7 TH/MM3 Lymphocytes # (Auto) 1.2 TH/MM3 Monocytes # (Auto) 0.6 TH/MM3 Eosinophils # (Auto) 0.0 TH/MM3 Basophils # (Auto) 0.0 TH/MM3 CBC Comment DIFF FINAL Differential Comment Sodium Level 145 MEQ/L Potassium Level 3.5 MEQ/L Chloride Level 118 MEQ/L Carbon Dioxide Level 20.7 MEQ/L Anion Gap 6 MEQ/L Blood Urea Nitrogen 14 MG/DL Creatinine 0.99 MG/DL Estimat Glomerular Filtration 56 ML/MIN Rate Random Glucose 173 MG/DL Calcium Level 7.7 MG/DL Imaging Last Impressions Aorta w/Runoff CTA 03/15/17 0000 Signed Impressions: Service Date/Time: Wednesday, March 15, 2017 15:34 - CONCLUSION: 1. Inflow is patent down to the common femorals bilaterally despite regional calcification. 2. In the right lower extremity, there is some atherosclerotic irregularity at the adductor hiatus but the profunda, SFA and popliteal are patent down to the trifurcation with dominant runoff via the posterior tibial. 3. In the left lower extremity, some minimal narrowing of the proximal SFA but the common femoral, profunda, SFA and popliteal are patent down to the trifurcation with dominant runoff via the posterior tibial and peroneal. Anterior tibial occludes proximally. 4. Moderate sized bilateral pleural effusions with concomitant atelectatic changes. 5. 2.5 cm fat-containing lesion in the right lower lobe adjacent to the esophagus and posterior to the intrahepatic IVC. 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 6. Mixed density 3.7 cm mass lesion associated with the left adrenal which contains calcium and fat and may represent a myelolipoma which has previously bleed. 7. Diffuse anasarca with fluid in the deep pelvis and bilateral pleural effusions are suggesting right heart insufficiency. 8. Cortical scarring in the upper pole of the right kidney. 9. Nonspecific enhancing areas in the left and right hepatic lobes. These are overtly benign and may represent small hemangiomas. Preet Chavez MD Chest X-Ray 03/11/17 0000 Signed Impressions: Service Date/Time: February 10:04 - CONCLUSION: Normal examination. Left IJ central venous catheter in excellent position. Bradley Doe MD Assessment and Plan Problem List: (1) CAD (coronary artery disease) (2) IDDM (insulin dependent diabetes mellitus) (3) Hypertension (4) Acute kidney insufficiency (5) Clostridium difficile colitis (6) Dog bite of multiple sites of right lower extremity Assessment and Plan Continue monitoring. Recommend to resume platelet inhibitors (stop Effient and use clopidogrel, continue baby ASA) once OK with surgery and bleeding risk is minimal. Increase activity. Continue tx for angina and aggressive risk factor modification. Continue antibiotics for LE infection. Problem Qualifiers (1) CAD (coronary artery disease): Qualified Code: I25.10 - Coronary artery disease involving [place] coronary artery of [place] heart without angina pectoris (2) Dog bite of multiple sites of right lower extremity: Qualified Code: S81.851D - Dog bite of multiple sites of right lower extremity , subsequent encounter Dunia Reddy MD Mar 19, 2017 17:36
--- NOTE | 2017-03-19 18:43 | HHI.PR ---
Subjective Remarks Follow-up for lower showing wound and anasarca. The patient is doing well today. Received Lasix and albumin yesterday, and reports good diuresis. She feels like her leg swelling is improved some. She worked with PT today. She feels like she was able to ambulate better after diuresis. 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 Objective Vitals Vital Signs Date Time Temp Pulse Resp B/P Pulse Ox O2 Delivery O2 Flow Rate FiO2 03/19/17 12:00 98.2 70 20 158/67 93 03/19/17 08:01 96 03/19/17 08:00 97.8 65 20 165/75 95 03/19/17 04:00 97.7 64 20 145/67 97 03/19/17 00:00 98.4 68 20 136/62 96 03/18/17 20:00 98.3 82 20 135/74 97 03/18/17 20:00 81 03/18/17 19:25 97 Nasal Cannula 2.00 I/O 03/18/17 03/18/17 03/18/17 03/19/17 03/19/17 03/19/17 07:00 15:00 23:00 07:00 15:00 23:00 Intake Total 480 ml 720 ml 240 ml 360 ml Output Total 300 ml 625 ml Balance 480 ml 720 ml -60 ml -265 ml Intake Oral 480 ml 720 ml 240 ml 360 ml Output Urine Total 300 ml 625 ml # Voids 1 1 # Bowel Movements 0 0 0 0 Result Diagram: 03/17/17 0800 03/17/17 1800 Objective Remarks GENERAL: Well-developed well-nourished. In no acute distress. SKIN: Warm and dry. Right lower extremity wound with clean dressing. HEENT: Normocephalic. Pupils equal and round. Mucous membranes pink and moist. CARDIOVASCULAR: Regular rate and rhythm. No murmur appreciated. RESPIRATORY: No accessory muscle use. Clear to auscultation. Breath sounds equal bilaterally. GASTROINTESTINAL: Abdomen soft, non-tender, nondistended. Bowel sounds x4. MUSCULOSKELETAL: Trace and improvement bilateral lower extremity anasarca. No clubbing or cyanosis. NEUROLOGICAL: Awake and alert. No focal neurological deficits. Moves upper and lower extremities spontaneously. Normal speech. PSYCHIATRIC: Appropriate mood and affect; insight and judgment normal. Date of Removal: Mar 14, 2017 A/P Problem List: (1) Clostridium difficile colitis ICD Code: A04.7 Status: Acute (2) Nausea & vomiting ICD Code: R11.2 Status: Resolved (3) Lactic acid acidosis ICD Code: E87.2 Status: Chronic (4) Anemia ICD Code: D64.9 Status: Chronic (5) COPD (chronic obstructive pulmonary disease) ICD Code: J44.9 Status: Chronic (6) HTN (hypertension) ICD Code: I10 Status: Chronic (7) IDDM (insulin dependent diabetes mellitus) ICD Code: E11.9 Status: Chronic (8) Hypothermia ICD Code: T68.XXXA Status: Resolved (9) Sepsis ICD Code: A41.9 Status: Acute (10) Metabolic acidosis ICD Code: E87.2 Status: Resolved (11) DKA (diabetic ketoacidoses) ICD Code: E13.10 Status: Resolved (12) Dog bite of multiple sites of right lower extremity ICD Code: S81.851A Status: Chronic (13) Hypertension ICD Code: I10 Status: Chronic (14) Leukocytosis ICD Code: D72.829 Status: Acute (15) CONOR (acute kidney injury) ICD Code: N17.9 Status: Acute (16) Diarrhea ICD Code: R19.7 Status: Acute (17) CAD (coronary artery disease) ICD Code: I25.10 Status: Chronic (18) Anemia, iron deficiency ICD Code: D50.9 Status: Chronic Assessment and Plan 66-year-old female with: -C.difficile Colitis: pt with multiple episodes of diarrhea, Cdiff + on 03/13. Infectious disease consulted. Started oral vanco 125mg po q6h [id number] (stop date 03/28). Monitor BMs. Monitor BMP. Diet as tolerated. Leukocytosis resolved. Clinically improved. -Severe right lower extremity wound s/p dog bite previous admission, had wound vac on at home (placed 03/02), now dressing changes per plastic. Concern for wound infection on admission, no wound culture. S/p plastic eval with Dr. Moore who felt wound did not appear infected. Blood cultures NGTD. UA, cxr neg. Check prealbumin level to assess nutrition (pending). Optimize glucose control and nutrition. Consulted wound care/podiatry, Dr. Read for outpatient wound management, consideration to hyperbaric oxygen therapy. s/p OR debridement to promote wound healing. CTA aorta with runoff noted - sufficient blood flow. Cleared by Dr. Read for outpatient follow-up with him for further wound management. ID believes wound is colonized, recommends no further antibiotics for wound infection at this time. -Type 2 DM, uncontrolled but improving trends - HbA1c 7.1. s/p diabetic education. cont levemir 4 units sq q 12 hr, to hold if not taking meals or glucose<120. SSI low novolog AC, HS, 03:00. -Hypernatremia, hypovolemic - improving. Na within normal limits today, will HLIV as she now has good PO intake as has anasarca, likely d/t low albumin state. -CONOR - improving, nonoliguric, cont IVF, Cr ~1. Avoid nephrotoxins. -Anemia of fe deficiency (possible underlying myelodysplastic disorder as per Dr. Schmidt's outpatient evaluation), also of chronic illness, hb improved s/p transfusion, monitor CBC, Hgb 7.7. Bleeding, transfused 2 units pRBCs, hemoglobin improved to 9.7. -CAD, history stents, [facility] in 2014 with stent to the LAD & RCA per Dr. Reddy -cont metoprolol 50 mg twice a day, aspirin 81 mg/day Isordil. Patient 's branch service leader consulted, recommended stopping Effient and starting aspirin and Plavix. -COPD/Asthma-without acute exacerbation. Does not use home O2. Duo nebs QID scheduled, every 2 hours when necessary, O2 via NC as needed. consulted pulmonology as well (pt does not follow with pulm). -CHF, chronic diastolic. Echo 03/13 shows preserved EF, large left pleural effusion. patient denies hx CHF. she has preserved EF. -Anasarca - suspect due to hypoalbuminemia. she has preserved EF, and no hx liver disease. Diuresis with IV Lasix with albumin. Continue Lim to monitor diuresis. Improving. -B/l plerual effusions, likely due to the anasarca. asymptomatic currently, consider thoracentesis. Consulted pulmonology. -Hypertension-improved control. cont Norvasc 10 mg/day, metoprolol 50 mg twice a day, aspirin 81 mg/day Isordil resumed. resumed lisinopril. -Generalized weakness - continue PT. weakness exacerbated by RLE wound. even prior to admission patient was unable to navigate the 3 steps to her house. Optimally she could be DC'ed to home environment to start hyperbaric O2 as soon as possible. her has built a wheelchair ramp. Diuresis as above. -Severe malnutrition - hypoalbuminemia d/t poor PO intake, prealbumin 13, will consulted dietitian for recs, appreciate input, continue supplementation. -Severe metabolic acidosis, resolved. -Acute metabolic encephalopathy - resolved. -Diabetic Peripheral neuropathy - started on neurontin. lortab prn for pain. -Nausea and vomiting -now resolved. -Sepsis due to c dif colitis, sepsis resolved. -Diabetic ketoacidosis, resolved. Was likely triggered by the colitis. -GERD-resume zantac PO. DVT Prophylaxis-Heparin 5000 SQ - held for now due to bleeding. Discussed with Dr. Prabhakar Problem Qualifiers (1) Hypothermia: Qualified Code: T68.XXXA - Hypothermia, initial encounter (2) Sepsis: Qualified Code: A41.9 - Sepsis, due to unspecified organism (3) DKA (diabetic ketoacidoses): Qualified Code: E13.10 - Diabetic ketoacidosis without coma associated with other specified diabetes mellitus (4) Dog bite of multiple sites of right lower extremity: Qualified Code: S81.851D - Dog bite of multiple sites of right lower extremity , subsequent encounter (5) CAD (coronary artery disease): Qualified Code: I25.10 - Coronary artery disease involving [place] coronary artery of [place] heart without angina pectoris Reji Valerio Mar 19, 2017 18:43
[2017-03-20] VITALS (7 sets, daily range): BP systolic 140–184; BP diastolic 64–78; PULSE 67–80; RESP 16–20; TEMP 97.9–98.9; O2SAT 92–94
[2017-03-20] MEDS: RESP: ALBUTEROL 2.5 MG/IPRATROPIUM 0.5 MG NEB (PRN) INH ×2 (01:37→20:50)
[2017-03-20] MEDS: ACETAMINOPHEN/HYDROcodone 325 MG/7.5 MG TAB PO PRN ×4 (02:09→22:04)
[2017-03-20] MEDS: CHLORHEXIDINE GLUCONATE 2 % 1 PACK (2 CLOTHS) TOP SCH (04:00)
[2017-03-20] MEDS: INSULIN ASPART SUPPLEMENTAL SCALE SQ SCH ×4 (06:30→21:00)
[2017-03-20] MEDS: INSULIN DETEMIR 100 UNITS/ML VIAL SQ SCH ×2 (09:00→21:59)
[2017-03-20] MEDS: SODIUM HYPOCHLORITE 0.25% 500 ML BTL TOPICAL SCH ×2 (09:00→21:00)
[2017-03-20] MEDS: FAMOTIDINE 20 MG TAB PO SCH (09:39)
[2017-03-20] MEDS: ASPIRIN 81 MG CHEW TAB CHEW SCH (09:40)
[2017-03-20] MEDS: PRAVASTATIN SOD 40 MG TAB PO SCH (09:40)
[2017-03-20] MEDS: GABAPENTIN 100 MG CAP PO SCH ×3 (09:40→18:11)
[2017-03-20] MEDS: LISINOPRIL 20 MG TAB PO SCH (09:40)
[2017-03-20] MEDS: METOPROLOL TARTRATE 50 MG TAB PO SCH ×2 (09:40→21:59)
[2017-03-20] MEDS: ISOSORBIDE MONONITRATE 30 MG TAB PO SCH (09:40)
[2017-03-20] MEDS: SODIUM CHLORIDE 0.9% FLUSH 10 ML FLUSH IV FLUSH SCH ×4 (09:41→21:59)
[2017-03-20] MEDS: VANCOMYCIN 500 MG VIAL (FOR ORAL USE ONLY) PO SCH ×4 (09:48→22:00)
[2017-03-20] MEDS: METOCLOPRAMIDE HCL 10 MG/2 ML VIAL IV PUSH SCH ×3 (09:50→18:15)
[2017-03-20] MEDS ORDERED: MAGNESIUM HYDROXIDE SUSP 30 ML CUP PO ONE (13:15)
[2017-03-20] MEDS ORDERED: MAGNESIUM HYDROXIDE SUSP 30 ML CUP PO PRN (13:15)
[2017-03-20] MEDS ORDERED: FUROSEMIDE 20 MG TAB PO SCH (13:15)
--- NOTE | 2017-03-20 13:23 | HHI.PR ---
Subjective Remarks Follow-up for constipation, hypertension, lower extremity wound. The patient is doing well today. She is about to get out of bed into the chair after lunch. States she sat up in the chair for an hour yesterday. She states that leg swelling is improved. She denies any shortness of breath. She states that Dr. Hough changed her lower extremity wound dressing today. She does complain of constipation today. Last bowel movement 5 days ago. She denies any nausea or abdominal pain. Objective Vitals Vital Signs Date Time Temp Pulse Resp B/P Pulse Ox O2 Delivery O2 Flow Rate FiO2 03/20/17 12:00 98.6 73 17 166/71 92 03/20/17 08:00 97.9 73 16 184/77 92 03/20/17 04:00 98.5 80 20 142/78 94 03/20/17 01:38 93 21 03/19/17 20:00 77 03/19/17 20:00 98.9 77 16 144/65 95 03/19/17 16:00 98.0 73 18 121/71 94 I/O 03/19/17 03/19/17 03/19/17 03/20/17 03/20/17 03/20/17 07:00 15:00 23:00 07:00 15:00 23:00 Intake Total 360 ml 720 ml 1080 ml 240 ml Output Total 625 ml 500 ml 125 ml 350 ml Balance -265 ml 220 ml 955 ml -110 ml Intake Oral 360 ml 720 ml 1080 ml 240 ml Output Urine Total 625 ml 500 ml 125 ml 350 ml # Bowel Movements 0 0 0 0 Result Diagram: 03/17/17 0800 03/17/17 1800 Imaging Last Impressions Aorta w/Runoff CTA 03/15/17 0000 Signed Impressions: Service Date/Time: Wednesday, March 15, 2017 15:34 - CONCLUSION: 1. Inflow is patent down to the common femorals bilaterally despite regional calcification. 2. In the right lower extremity, there is some atherosclerotic irregularity at the adductor hiatus but the profunda, SFA and popliteal are patent down to the trifurcation with dominant runoff via the posterior tibial. 3. In the left lower extremity, some minimal narrowing of the proximal SFA but the common femoral, profunda, SFA and popliteal are patent down to the trifurcation with dominant runoff via the posterior tibial and peroneal. Anterior tibial occludes proximally. 4. Moderate sized bilateral pleural effusions with concomitant atelectatic changes. 5. 2.5 cm fat-containing lesion in the right lower lobe adjacent to the esophagus and posterior to the intrahepatic IVC. 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 6. Mixed density 3.7 cm mass lesion associated with the left adrenal which contains calcium and fat and may represent a myelolipoma which has previously bleed. 7. Diffuse anasarca with fluid in the deep pelvis and bilateral pleural effusions are suggesting right heart insufficiency. 8. Cortical scarring in the upper pole of the right kidney. 9. Nonspecific enhancing areas in the left and right hepatic lobes. These are overtly benign and may represent small hemangiomas. Preet Chavez MD Chest X-Ray 03/11/17 0000 Signed Impressions: Service Date/Time: , March 11, 2017 10:04 - CONCLUSION: Normal examination. Left IJ central venous catheter in excellent position. Bradley Doe MD Objective Remarks GENERAL: Well-developed well-nourished. In no acute distress. SKIN: Warm and dry. Right lower extremity wound with clean dressing. HEENT: Normocephalic. Pupils equal and round. Mucous membranes pink and moist. CARDIOVASCULAR: Regular rate and rhythm. No murmur appreciated. RESPIRATORY: No accessory muscle use. Clear to auscultation. Breath sounds equal bilaterally. GASTROINTESTINAL: Abdomen soft, non-tender, nondistended. Bowel sounds x4. MUSCULOSKELETAL: Trace bilateral lower extremity anasarca. No clubbing or cyanosis. NEUROLOGICAL: Awake and alert. No focal neurological deficits. Moves upper and lower extremities spontaneously. Normal speech. PSYCHIATRIC: Appropriate mood and affect; insight and judgment normal. Date of Removal: Mar 14, 2017 A/P Problem List: (1) Clostridium difficile colitis ICD Code: A04.7 Status: Acute (2) Nausea & vomiting ICD Code: R11.2 Status: Resolved (3) Lactic acid acidosis ICD Code: E87.2 Status: Chronic (4) Anemia ICD Code: D64.9 Status: Chronic (5) COPD (chronic obstructive pulmonary disease) ICD Code: J44.9 Status: Chronic (6) HTN (hypertension) ICD Code: I10 Status: Chronic (7) IDDM (insulin dependent diabetes mellitus) ICD Code: E11.9 Status: Chronic (8) Hypothermia ICD Code: T68.XXXA Status: Resolved (9) Sepsis ICD Code: A41.9 Status: Acute (10) Metabolic acidosis ICD Code: E87.2 Status: Resolved (11) DKA (diabetic ketoacidoses) ICD Code: E13.10 Status: Resolved (12) Dog bite of multiple sites of right lower extremity ICD Code: S81.851A Status: Chronic (13) Hypertension ICD Code: I10 Status: Chronic (14) Leukocytosis ICD Code: D72.829 Status: Acute (15) CONOR (acute kidney injury) ICD Code: N17.9 Status: Acute (16) Diarrhea ICD Code: R19.7 Status: Acute (17) CAD (coronary artery disease) ICD Code: I25.10 Status: Chronic (18) Anemia, iron deficiency ICD Code: D50.9 Status: Chronic Assessment and Plan 66-year-old female with: -C.difficile Colitis/constipation: pt with multiple episodes of diarrhea, Cdiff + on 03/13. Infectious disease consulted. Started oral vanco 125mg po q6h [id number] (stop date 03/28). Monitor BMs. Monitor BMP. Diet as tolerated. Leukocytosis resolved. Improved. Now constipation, start cautious bowel regimen. -Severe right lower extremity wound s/p dog bite previous admission, had wound vac on at home (placed 03/02), now dressing changes per plastic. Concern for wound infection on admission, no wound culture. S/p plastic eval with Dr. Moore who felt wound did not appear infected. Blood cultures NGTD. UA, cxr neg. Check prealbumin level to assess nutrition (pending). Optimize glucose control and nutrition. Consulted wound care/podiatry, Dr. Read for outpatient wound management, consideration to hyperbaric oxygen therapy. s/p OR debridement to promote wound healing. CTA aorta with runoff noted - sufficient blood flow. Cleared by Dr. Read for outpatient follow-up with him for further wound management. ID believes wound is colonized, recommends no further antibiotics for wound infection at this time. Podiatry ordered for repeat wound culture. -Type 2 DM - HbA1c 7.1. s/p diabetic education. cont levemir 4 units sq q 12 hr , to hold if not taking meals or glucose<120. SSI low novolog AC, HS, 03:00. Better controlled. -Hypernatremia, hypovolemic - improved. Na within normal limits currently. likely d/t low albumin state. Follow-up labs in the a.m. -Anemia of fe deficiency (possible underlying myelodysplastic disorder as per Dr. Schmidt's outpatient evaluation), also of chronic illness, hb improved s/p transfusion, monitor CBC, Hgb 7.7. Bleeding, transfused 2 units pRBCs, hemoglobin improved to 9.7. Follow-up CBC. -CAD, history stents, [facility] in 2014 with stent to the LAD & RCA per Dr. Reddy -cont metoprolol 50 mg twice a day, aspirin 81 mg/day Isordil. Patient 's knife cutter consulted, recommended stopping Effient and starting aspirin and Plavix. -COPD/asthma - chronic, stable. Duo nebs QID scheduled, every 2 hours when necessary, O2 via NC as needed. consulted pulmonology as well (pt does not follow with pulm). -CHF, chronic diastolic. Echo 03/13 shows preserved EF, large left pleural effusion. patient denies hx CHF. she has preserved EF. -Anasarca - suspect due to hypoalbuminemia. she has preserved EF, and no hx liver disease. Given IV Lasix with albumin. Continue Lim to monitor diuresis. Improving.*Daily Lasix. -B/l plerual effusions, likely due to the anasarca. asymptomatic currently, consider thoracentesis. Consulted pulmonology. -Hypertension- not well controlled currently. Continue amlodipine, metoprolol, Isordil, lisinopril. Add Lasix. -Generalized weakness - continue PT. weakness exacerbated by RLE wound. even prior to admission patient was unable to navigate the 3 steps to her house. Optimally she could be NM'ed to home environment to start hyperbaric O2 as soon as possible. her has built a wheelchair ramp. -Severe malnutrition - hypoalbuminemia d/t poor PO intake, prealbumin 13, consulted dietitian for recs, appreciate input, continue supplementation. -Severe metabolic acidosis, resolved. -Acute metabolic encephalopathy - resolved. -Diabetic Peripheral neuropathy - started on neurontin. lortab prn for pain. -Nausea and vomiting -now resolved. -Sepsis due to c dif colitis, sepsis resolved. -Diabetic ketoacidosis, resolved. Was likely triggered by the colitis. -CONOR - improved -GERD-resume zantac PO. DVT Prophylaxis-Heparin 5000 SQ - held for now due to bleeding. Discharge Planning Hopefully discharge home with outpatient wound care if patient continues to ambulate better. If not, will need SNF. Problem Qualifiers (1) Hypothermia: Qualified Code: T68.XXXA - Hypothermia, initial encounter (2) Sepsis: Qualified Code: A41.9 - Sepsis, due to unspecified organism (3) DKA (diabetic ketoacidoses): Qualified Code: E13.10 - Diabetic ketoacidosis without coma associated with other specified diabetes mellitus (4) Dog bite of multiple sites of right lower extremity: Qualified Code: S81.851D - Dog bite of multiple sites of right lower extremity , subsequent encounter (5) CAD (coronary artery disease): Qualified Code: I25.10 - Coronary artery disease involving [place] coronary artery of [place] heart without angina pectoris Reji Valerio Mar 20, 2017 13:23
[2017-03-20] MEDS: DOCUSATE SODIUM 100 MG CAP PO SCH ×2 (14:30→21:59)
--- NOTE | 2017-03-20 19:00 | HHI.PR ---
Subjective Remarks ALERT NO SOB AT REST SAT OK ON N/C Objective Vital Signs Date Time Temp Pulse Resp B/P Pulse Ox O2 Delivery O2 Flow Rate FiO2 03/20/17 12:00 98.6 73 17 166/71 92 03/20/17 08:00 97.9 73 16 184/77 92 03/20/17 04:00 98.5 80 20 142/78 94 03/20/17 01:38 93 21 03/19/17 20:00 77 03/19/17 20:00 98.9 77 16 144/65 95 I/O 03/19/17 03/19/17 03/19/17 03/20/17 03/20/17 03/20/17 07:00 15:00 23:00 07:00 15:00 23:00 Intake Total 360 ml 720 ml 1080 ml 240 ml 0 ml Output Total 625 ml 500 ml 125 ml 350 ml Balance -265 ml 220 ml 955 ml -110 ml 0 ml Intake Oral 360 ml 720 ml 1080 ml 240 ml IV Total 0 ml Output Urine Total 625 ml 500 ml 125 ml 350 ml # Bowel Movements 0 0 0 0 Result Diagram: 03/17/17 0800 03/17/17 1800 Objective Remarks GENERAL: SKIN: Warm and dry. HEAD: Atraumatic. Normocephalic. EYES: Pupils equal and round. No scleral icterus. No injection or drainage. ENT: No nasal bleeding or discharge. Mucous membranes pink and moist. NECK: Trachea midline. No JVD. CARDIOVASCULAR: Regular rate and rhythm. RESPIRATORY: No accessory muscle use. Clear to auscultation. Breath sounds equal bilaterally. GASTROINTESTINAL: Abdomen soft, non-tender, nondistended. Hepatic and splenic margins not palpable. MUSCULOSKELETAL: Extremities without clubbing, cyanosis, or edema. No obvious deformities. NEUROLOGICAL: Awake and alert. No obvious cranial nerve deficits. Motor grossly within normal limits. Five out of 5 muscle strength in the arms and legs. Normal speech. PSYCHIATRIC: Appropriate mood and affect; insight and judgment normal. Assessment and Plan Assessment and Plan COPD DOG BITE PLAN O2 NEEDED BRONCHODILATOR THERAPY INCREASE ACTIVITY Sylvia Ward MD Mar 20, 2017 19:00
--- NOTE | 2017-03-20 21:32 | RADRPT ---
EXAM DATE/TIME: 03/20/2017 21:14 [facility] COMPARISON: CHEST PA & LAT, October 09, 2014, 11:21. INDICATIONS : Evaluate for pneumonia. MEDICAL HISTORY : Hypertension. Chronic obstructive pulmonary disease. Congestive heart failure. SURGICAL HISTORY : Coronary artery stent. ENCOUNTER: Subsequent ACUITY: 1 week PAIN SCORE: 0/10 LOCATION: chest FINDINGS: There is a large left pleural effusion with meniscal interface extending to the upper one third of th e left chest. There is complete loss of delineation of the left hemidiaphragm. Patchy infiltrates a re present in the right mid and lower lung and there is blunting of the costophrenic angle the right side. Left internal jugular catheter projects over the mid superior vena cava. CONCLUSION: Bilateral pleural effusions, large on the left and small on the right. Dewayne Easton MD on March 20, 2017 at 21:29 Board Certified Radiologist. This report was verified electronically.
[2017-03-21] VITALS (8 sets, daily range): BP systolic 135–197; BP diastolic 64–78; PULSE 66–83; RESP 18–20; TEMP 97.6–98.6; O2SAT 91–95
[2017-03-21] MEDS: ACETAMINOPHEN/HYDROcodone 325 MG/7.5 MG TAB PO PRN ×5 (03:57→23:28)
[2017-03-21] MEDS: CHLORHEXIDINE GLUCONATE 2 % 1 PACK (2 CLOTHS) TOP SCH (04:00)
[2017-03-21] MEDS: INSULIN ASPART SUPPLEMENTAL SCALE SQ SCH ×4 (05:19→21:11)
[2017-03-21 05:55] LABS: AUTOMATED NEUTROPHIL # 5.5 TH/MM3 (1.8-7.7); BASOPHIL % 0.3 % (0.0-2.0); EOSINOPHIL # 0.1 TH/MM3 (0-0.4); EOSINOPHIL % 1.6 % (0.0-4.0); HEMATOCRIT 25.3 % (35.0-46.0); HEMO FLAGS DIFF FINAL; LYMPH % 15.6 % (9.0-44.0); LYMPHOCYTE # 1.2 TH/MM3 (1.0-4.8); MEAN CELL VOLUME 86.6 FL (80.0-100.0); MEAN CORPUSCULAR HEMOGLOBIN 29.6 PG (27.0-34.0); MEAN CORPUSCULAR HGB CONC 34.2 % (32.0-36.0); MONO % 10.2 % (0.0-8.0); NEUT % 72.3 % (16.0-70.0); PLATELET COUNT 265 TH/MM3 (150-450); RED BLOOD COUNT 2.92 MIL/MM3 (4.00-5.30); RED CELL DISTRIBUTION WIDTH 14.8 % (11.6-17.2); WHITE BLOOD COUNT 7.7 TH/MM3 (4.0-11.0)
[2017-03-21 06:01] LABS: BICARBONATE 23.2 MEQ/L (21.0-32.0); MAGNESIUM 1.6 MG/DL (1.5-2.5); POTASSIUM 3.8 MEQ/L (3.5-5.1)
[2017-03-21] MEDS ORDERED: MAGNESIUM OXIDE 400 MG TAB PO ONE (08:00)
[2017-03-21] MEDS: RESP: ALBUTEROL 2.5 MG/IPRATROPIUM 0.5 MG NEB (PRN) INH (08:02)
[2017-03-21] MEDS: SODIUM CHLORIDE 0.9% FLUSH 10 ML FLUSH IV FLUSH SCH ×4 (09:00→21:11)
[2017-03-21] MEDS: SODIUM HYPOCHLORITE 0.25% 500 ML BTL TOPICAL SCH ×2 (09:00→21:00)
[2017-03-21] MEDS: INSULIN DETEMIR 100 UNITS/ML VIAL SQ SCH ×2 (09:00→21:10)
[2017-03-21] MEDS ORDERED: SENNOSIDES 8.6 MG TAB PO SCH (09:00)
[2017-03-21] MEDS: ASPIRIN 81 MG CHEW TAB CHEW SCH (09:03)
[2017-03-21] MEDS: LISINOPRIL 20 MG TAB PO SCH (09:03)
[2017-03-21] MEDS: GABAPENTIN 100 MG CAP PO SCH ×3 (09:04→17:46)
[2017-03-21] MEDS: PRAVASTATIN SOD 40 MG TAB PO SCH (09:04)
[2017-03-21] MEDS: FUROSEMIDE 40 MG TAB PO SCH (09:04)
[2017-03-21] MEDS: METOPROLOL TARTRATE 50 MG TAB PO SCH ×2 (09:04→21:11)
[2017-03-21] MEDS: DOCUSATE SODIUM 100 MG CAP PO SCH ×2 (09:04→21:11)
[2017-03-21] MEDS: FAMOTIDINE 20 MG TAB PO SCH (09:04)
[2017-03-21] MEDS: ISOSORBIDE MONONITRATE 30 MG TAB PO SCH (09:04)
[2017-03-21] MEDS: METOCLOPRAMIDE HCL 10 MG/2 ML VIAL IV PUSH SCH ×3 (09:05→17:53)
[2017-03-21] MEDS: VANCOMYCIN 500 MG VIAL (FOR ORAL USE ONLY) PO SCH ×4 (09:05→21:11)
--- NOTE | 2017-03-21 09:53 | HHI.PR ---
Subjective Remarks Follow-up for pleural effusions. The patient complains of a sore throat today. She also states that she's short of breath today. She states that she isn't having progressively worsening shortness of breath today, but wasn't done until today. She isn't having a dry cough. She requests being started on scheduled breathing treatments. She denies any fevers or chills. She had a BM yesterday. She would prefer to do diuresis rather than thoracentesis if possible. Objective Vitals Vital Signs Date Time Temp Pulse Resp B/P Pulse Ox O2 Delivery O2 Flow Rate FiO2 03/21/17 08:15 98.6 78 19 197/78 95 03/21/17 04:00 97.6 70 20 157/69 93 03/21/17 00:00 97.8 81 20 136/64 92 03/20/17 20:51 94 03/20/17 20:00 98.9 73 20 157/72 93 03/20/17 20:00 76 03/20/17 16:00 98.4 67 16 140/64 94 03/20/17 12:00 98.6 73 17 166/71 92 I/O 03/20/17 03/20/17 03/20/17 03/21/17 03/21/17 03/21/17 07:00 15:00 23:00 07:00 15:00 23:00 Intake Total 240 ml 0 ml 480 ml Output Total 350 ml 1300 ml Balance -110 ml 0 ml -820 ml Intake Oral 240 ml 480 ml IV Total 0 ml Output Urine Total 350 ml 1300 ml # Bowel Movements 0 Result Diagram: 03/21/17 0519 03/21/17 0519 Imaging Last Impressions Chest X-Ray 03/20/17 0000 Signed Impressions: Service Date/Time: Monday, March 20, 2017 21:14 - CONCLUSION: Bilateral pleural effusions, large on the left and small on the right. Dewayne Easton MD Aorta w/Runoff CTA 03/15/17 0000 Signed Impressions: Service Date/Time: Wednesday, March 15, 2017 15:34 - CONCLUSION: 1. Inflow is patent down to the common femorals bilaterally despite regional calcification. 2. In the right lower extremity, there is some atherosclerotic irregularity at the adductor hiatus but the profunda, SFA and popliteal are patent down to the trifurcation with dominant runoff via the posterior tibial. 3. In the left lower extremity, some minimal narrowing of the proximal SFA but the common femoral, profunda, SFA and popliteal are patent down to the trifurcation with dominant runoff via the posterior tibial and peroneal. Anterior tibial occludes proximally. 4. Moderate sized bilateral pleural effusions with concomitant atelectatic changes. 5. 2.5 cm fat-containing lesion in the right lower lobe adjacent to the esophagus and posterior to the intrahepatic IVC. 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 6. Mixed density 3.7 cm mass lesion associated with the left adrenal which contains calcium and fat and may represent a myelolipoma which has previously bleed. 7. Diffuse anasarca with fluid in the deep pelvis and bilateral pleural effusions are suggesting right heart insufficiency. 8. Cortical scarring in the upper pole of the right kidney. 9. Nonspecific enhancing areas in the left and right hepatic lobes. These are overtly benign and may represent small hemangiomas. Preet Chavez MD Objective Remarks GENERAL: Well-developed well-nourished. In no acute distress. SKIN: Warm and dry. Right lower extremity wound with clean dressing. HEENT: Normocephalic. Pupils equal and round. Mucous membranes pink and moist. CARDIOVASCULAR: Regular rate and rhythm. No murmur appreciated. RESPIRATORY: No accessory muscle use. Clear to auscultation. Breath sounds equal bilaterally. GASTROINTESTINAL: Abdomen soft, non-tender, nondistended. Bowel sounds x4. MUSCULOSKELETAL: Trace bilateral lower extremity anasarca. No clubbing or cyanosis. NEUROLOGICAL: Awake and alert. No focal neurological deficits. Moves upper and lower extremities spontaneously. Normal speech. PSYCHIATRIC: Appropriate mood and affect; insight and judgment normal. Date of Removal: Mar 14, 2017 A/P Problem List: (1) Clostridium difficile colitis ICD Code: A04.7 Status: Acute (2) Nausea & vomiting ICD Code: R11.2 Status: Resolved (3) Lactic acid acidosis ICD Code: E87.2 Status: Chronic (4) Anemia ICD Code: D64.9 Status: Chronic (5) COPD (chronic obstructive pulmonary disease) ICD Code: J44.9 Status: Chronic (6) HTN (hypertension) ICD Code: I10 Status: Chronic (7) IDDM (insulin dependent diabetes mellitus) ICD Code: E11.9 Status: Chronic (8) Hypothermia ICD Code: T68.XXXA Status: Resolved (9) Sepsis ICD Code: A41.9 Status: Acute (10) Metabolic acidosis ICD Code: E87.2 Status: Resolved (11) DKA (diabetic ketoacidoses) ICD Code: E13.10 Status: Resolved (12) Dog bite of multiple sites of right lower extremity ICD Code: S81.851A Status: Chronic (13) Hypertension ICD Code: I10 Status: Chronic (14) Leukocytosis ICD Code: D72.829 Status: Acute (15) CONOR (acute kidney injury) ICD Code: N17.9 Status: Acute (16) Diarrhea ICD Code: R19.7 Status: Acute (17) CAD (coronary artery disease) ICD Code: I25.10 Status: Chronic (18) Anemia, iron deficiency ICD Code: D50.9 Status: Chronic Assessment and Plan 66-year-old female with: -C.difficile Colitis/constipation: pt with multiple episodes of diarrhea, Cdiff + on 03/13. Infectious disease consulted. Started oral vanco 125mg po q6h a3leeeo (stop date 03/28). Monitor BMs. Monitor BMP. Diet as tolerated. Leukocytosis resolved. Improved. Now constipation, start cautious bowel regimen. -Severe right lower extremity wound s/p dog bite previous admission, had wound vac on at home (placed 03/02), now dressing changes per plastic. Concern for wound infection on admission, no wound culture. S/p plastic eval with Dr. Moore who felt wound did not appear infected. Blood cultures NGTD. UA, cxr neg. Check prealbumin level to assess nutrition (pending). Optimize glucose control and nutrition. Consulted wound care/podiatry, Dr. Reda for outpatient wound management, consideration to hyperbaric oxygen therapy. s/p OR debridement to promote wound healing. CTA aorta with runoff noted - sufficient blood flow. Cleared by Dr. Read for outpatient follow-up with him for further wound management. ID believes wound is colonized, recommends no further antibiotics for wound infection at this time. Podiatry ordered for repeat wound culture. -Type 2 DM - HbA1c 7.1. s/p diabetic education. cont levemir 4 units sq q 12 hr , to hold if not taking meals or glucose<120. SSI low novolog AC, HS, 03:00. Better controlled. -Hypernatremia, hypovolemic - improved. Na within normal limits currently. likely d/t low albumin state. Follow-up labs in the a.m. -Anemia of fe deficiency (possible underlying myelodysplastic disorder as per Dr. Schmidt's outpatient evaluation), also of chronic illness, hb improved s/p transfusion, monitor CBC, Hgb 7.7. Bleeding, transfused 2 units pRBCs, hemoglobin improved to 9.7. Follow-up CBC. -CAD, history stents, [facility] in 2014 with stent to the LAD & RCA per Dr. Reddy -cont metoprolol 50 mg twice a day, aspirin 81 mg/day Isordil. 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 -COPD/asthma - chronic, stable. Duo nebs QID scheduled, every 2 hours when necessary, O2 via NC as needed. consulted pulmonology as well (pt does not follow with pulm). -CHF, chronic diastolic. Echo 03/13 shows preserved EF, large left pleural effusion. patient denies hx CHF. she has preserved EF. -Anasarca - suspect due to hypoalbuminemia. she has preserved EF, and no hx liver disease. Continue diuresis with Lasix with albumin. Continue Lim to monitor diuresis. -B/l plerual effusions, likely due to the anasarca: Chest x-ray 03/20 reviewed, large left pleural effusion. Continue diuresis. Consider thoracentesis, check ultrasound. Consulted pulmonology. Scheduled as needed. -Hypertension- labile. Continue amlodipine, metoprolol, Isordil, lisinopril. Added Lasix. -Generalized weakness - continue PT. weakness exacerbated by RLE wound. even prior to admission patient was unable to navigate the 3 steps to her house. Optimally she could be DC'ed to home environment to start hyperbaric O2 as soon as possible. her has built a wheelchair ramp. -Severe malnutrition - hypoalbuminemia d/t poor PO intake, prealbumin 13, consulted dietitian for recs, appreciate input, continue supplementation. -Severe metabolic acidosis, resolved. -Acute metabolic encephalopathy - resolved. -Diabetic Peripheral neuropathy - started on neurontin. lortab prn for pain. -Nausea and vomiting -now resolved. -Sepsis due to c dif colitis, sepsis resolved. -Diabetic ketoacidosis, resolved. Was likely triggered by the colitis. -CONOR - improved -GERD-resume zantac PO. DVT Prophylaxis-Heparin 5000 SQ - held for now due to bleeding. Written by Reji Valerio, acting as scribe for Dr. Camacho on 03/21/17 at 09:52. This note was transcribed by scribGuillermina ROLLE. I, Dr. Lay Camacho personally performed the history, physical exam, and medical decision making; and confirmed the accuracy of the information in the transcribed note. Authenticated by Dr. Lay Camacho on 03/21/17 at 09:52. Discharge Planning Hopefully discharge home with outpatient wound care if patient continues to ambulate better. If not, will need SNF. Currently undergoing workup/treatment for large left pleural effusion. Problem Qualifiers (1) Hypothermia: Qualified Code: T68.XXXA - Hypothermia, initial encounter (2) Sepsis: Qualified Code: A41.9 - Sepsis, due to unspecified organism (3) DKA (diabetic ketoacidoses): Qualified Code: E13.10 - Diabetic ketoacidosis without coma associated with other specified diabetes mellitus (4) Dog bite of multiple sites of right lower extremity: Qualified Code: S81.851D - Dog bite of multiple sites of right lower extremity , subsequent encounter (5) CAD (coronary artery disease): Qualified Code: I25.10 - Coronary artery disease involving eyak coronary artery of eyak heart without angina pectoris Reji Valerio Mar 21, 2017 09:53 Lay Camacho MD Mar 21, 2017 14:31
[2017-03-21] MEDS: ALBUMIN HUMAN 25% 25 GM/100 ML BAGP IV SCH (10:36)
--- NOTE | 2017-03-21 11:44 | PD.POD ---
Subjective Podiatric Problems Please note that my 03/20 dictation was lost. This is a redictation of that note. 90 cm ulceration through muscle right medial calf. Pain scale used: 0-10 numeric scale Pain score: 2 Remarks Patient is a 66-year-old female who received a dog bite and underwent debridement. Her wound was extremely deep with necrotic tendon and muscle. She was taken to the OR yesterday evening for debridement of the wound with culture and sensitivity. Patient is growing to bacteria from the wound however we will treat it topically because of her C. difficile. Past Med/Surg/Social History Past Medical History HEENT: REPORTS HX OF: Recurrent sinusitis Endocrine: REPORTS HX OF: Diabetes mellitus Respiratory: REPORTS HX OF: Allergies/hay fever, Asthma, COPD Cardiovascular: REPORTS HX OF: Atrial fibrillation, Heart valve disease, Hypertension Genitourinary: REPORTS HX OF: Kidney disease, Past UTI Age at menarche: 13 Age at menopause: 45 history: Live births: 2 Musculoskeletal: REPORTS HX OF: Osteoporosis Psychiatric: REPORTS HX OF: Anxiety Disabilities: REPORTS HX OF: Hearing deficit, Vision deficit Past Surgical History HEENT: REPORTS HX OF: Tonsillectomy (1972) Cardiovascular: REPORTS HX OF: Angioplasty (08/2015), Coronary stent (08/2015) Gynecologic: REPORTS HX OF: delivery (1983), Hysterectomy (1993) Neurologic: REPORTS HX OF: Spinal surgery (L-5 1979 never decompression) Breast: DENIES HX OF: Mastectomy, bilateral, Mastectomy, left, Mastectomy, right Social History Smoking Status: Former Smoker Review of Systems Notes No changes in her 14 point review of systems exam from the previous visit Objective Vital Signs Vital Signs Date Time Temp Pulse Resp B/P Pulse Ox O2 Delivery O2 Flow Rate FiO2 03/21/17 08:15 98.6 78 19 197/78 95 03/21/17 08:10 70 03/21/17 04:00 97.6 70 20 157/69 93 03/21/17 00:00 97.8 81 20 136/64 92 03/20/17 20:51 94 03/20/17 20:00 98.9 73 20 157/72 93 03/20/17 20:00 76 03/20/17 16:00 98.4 67 16 140/64 94 03/20/17 12:00 98.6 73 17 166/71 92 Coded Allergies: Darvon (Verified Allergy, Mild, RASH, 03/11/17) *MDRO Multi-Drug Resistant Organism (Verified Adverse Reaction, Unknown, ) 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 Medications and IVs Current Medications Sodium Chloride (NS 1000 ml Inj) 1,000 ml @ 2,000 mls/hr Q30M ONCE IV Last administered on 03/11/17 09:35; Start 03/11/17 at 09:09; Stop 03/11/17 at 09:38 ; Status DC Sodium Chloride (NS Flush) 2 ml UNSCH PRN IVF FLUSH AFTER USING IV ACCESS; Start 03/11/17 at 09:15; Stop 03/11/17 at 12:57; Status DC Insulin Human Regular 10 units 10 units ONCE ONCE IV PUSH Last administered on 03/11/17 10:13; Start 03/11/17 at 10:00; Stop 03/11/17 at 10:05; Status DC Sodium Chloride 1,000 ml @ 999 mls/hr BOLUS ONCE IV Last administered on 03/11 10:44; Start 03/11/17 at 10:00; Stop 03/11/17 at 11:00; Status DC Piperacillin Sod/ Tazobactam Sod 100 ml @ 200 mls/hr ONCE ONCE IV Last administered on 03/11/17 10:51; Start 03/11/17 at 10:45; Stop 03/11/17 at 11:14 ; Status DC Vancomycin HCl/ Sodium Chloride (Vancomycin Inj/ NS 250 ml Inj) 250 ml @ 250 mls/hr ONCE ONCE IV Last administered on 03/11/17 11:08; Start 03/11/17 at 10 :45; Stop 03/11/17 at 11:44; Status DC Dextrose (D50w (Vial) Inj) 25 ml UNSCH PRN IV PUSH SEE LABEL COMMENTS; Start at 10:45; Stop 03/11/17 at 12:56; Status DC Miscellaneous Information 1 1 ONCE ONCE XX Last administered on 03/11/17 10: 45; Start 03/11/17 at 10:45; Stop 03/11/17 at 10:46; Status DC Sodium Bicarbonate 154 meq/Sodium Chloride 1,000 ml @ 0 mls/hr Q0M IV Last administered on 03/11/17 18:36; Start 03/11/17 at 10:39 Insulin Human Regular/Sodium Chloride (NovoLIN R (IV INFUSION)/NS Inj) 100 ml @ 0 mls/hr TITRATE IV Last administered on 03/11/17 12:08; Start 03/11/17 at 11: 00; Stop 03/11/17 at 12:59; Status DC Dextrose (D50w (Vial) Inj) 25 ml UNSCH PRN IV PUSH SEE LABEL COMMENTS; Start at 11:00; Stop 03/12/17 at 10:05; Status DC Sodium Chloride (NS Flush) 2 ml UNSCH PRN IV FLUSH FLUSH AFTER USING IV ACCESS ; Start 03/11/17 at 11:30 Sodium Chloride (NS Flush) 2 ml BID IV FLUSH Last administered on 03/21/17 09: 00; Start 03/11/17 at 21:00 Acetaminophen (Tylenol) 650 mg Q6H PRN PO PAIN 1-6 AND/OR FEVER >101F Last administered on 03/12/17 22:29; Start 03/11/17 at 11:30 Pantoprazole Sodium (Protonix Inj) 40 mg DAILY IV Last administered on 08:26; Start 03/12/17 at 09:00; Stop 03/12/17 at 10:02; Status DC Ondansetron HCl (Zofran Inj) 4 mg Q6H PRN IV NAUSEA OR VOMITING Last administered on 03/14/17 21:38; Start 03/11/17 at 11:30 Bisacodyl (Dulcolax Supp) 10 mg DAILY PRN RECTAL CONSTIPATION; Start 03/11/17 at 11:30 Albuterol/ Ipratropium (Duoneb Neb) 1 ampule Q6HR NEB INH Last administered on 03/15/17 09:41; Start 03/11/17 at 16:00; Stop 03/15/17 at 16:00; Status DC Albuterol/ Ipratropium (Duoneb Neb) 1 ampule Q2HR NEB PRN INH WHEEZING Last administered on 03/21/17 08:02; Start 03/11/17 at 11:30 Heparin Sodium (Porcine) (Heparin Inj) 5,000 units Q8H SQ Last administered on 03/16/17 04:13; Start 03/11/17 at 13:00; Status Hold Miscellaneous Information 1 [id number] XX Last administered on 03/11/17 11:30; Start 03/11/17 at 11:30 Chlorhexidine Gluconate (Chlorhexidine 2% Cloth) Taper DAILY@04 TOP Last administered on 03/12/17 03:03; Start 03/12/17 at 04:00; Stop 03/08/18 at 03:59 Chlorhexidine Gluconate 3 pack 3 pack UNSCH PRN TOP HYGIENIC CARE; Start at 11:30 Aztreonam 1000 mg/ Sodium Chloride 100 ml @ 200 mls/hr Q8H IV Last administered on 03/11/17 14:36; Start 03/11/17 at 13:00; Stop 03/11/17 at 15:25 ; Status DC Metronidazole 100 ml @ 100 mls/hr Q8H IV Last administered on 03/11/17 14:36 ; Start 03/11/17 at 14:00; Stop 03/11/17 at 15:25; Status DC Pharmacy Profile Note 0 ml @ 0 mls/hr UNSCH OTHER ; Start 03/11/17 at 11:30; Stop 03/11/17 at 15:25; Status DC Sodium Chloride 1,000 ml @ 250 mls/hr Q4H IV Last administered on 03/11/17 14 :23; Start 03/11/17 at 12:30; Stop 03/13/17 at 17:50; Status DC Dextrose/Sodium Chloride (D5W-NS 1000 ml Inj) 1,000 ml @ 200 mls/hr Q5H IV Last administered on 03/13/17 14:30; Start 03/11/17 at 12:30; Stop 03/13/17 at 17:50; Status DC Insulin Human Regular 6.8 units 6.8 units BOLUS ONCE IV PUSH Last administered on 03/11/17 12:47; Start 03/11/17 at 12:30; Stop 03/11/17 at 12:31 ; Status DC Insulin Human Regular 100 units/ Sodium Chloride 100 ml @ 0 mls/hr TITRATE IV Last administered on 03/11/17 23:29; Start 03/11/17 at 11:45; Stop 03/12/17 at 05:03; Status DC Potassium Chloride 100 ml @ 100 mls/hr Q1H PRN IV SEE LABEL COMMENTS Last administered on 03/11/17t 19:50; Start 03/11/17 at 11:45; Stop 03/13/17 at 17:50 ; Status DC Potassium Chloride 100 ml @ 50 mls/hr Q2H PRN IV SEE LABEL COMMENTS; Start at 11:45; Stop 03/13/17 at 17:51; Status DC Potassium Chloride 100 ml @ 100 mls/hr Q1H PRN IV SEE LABEL COMMENTS Last administered on 03/11/17t 23:40; Start 03/11/17 at 11:45; Stop 03/13/17 at 17:51 ; Status DC Potassium Chloride 100 ml @ 100 mls/hr Q1H PRN IV SEE LABEL COMMENTS; Start at 11:45; Stop 03/13/17 at 17:51; Status DC Potassium Chloride 100 ml @ 50 mls/hr Q2H PRN IV SEE LABEL COMMENTS; Start at 11:45; Stop 03/13/17 at 17:51; Status DC Potassium Chloride 100 ml @ 50 mls/hr Q2H PRN IV SEE LABEL COMMENTS; Start at 11:45; Stop 03/13/17 at 17:51; Status DC Potassium Chloride 100 ml @ 50 mls/hr Q2H PRN IV SEE LABEL COMMENTS; Start at 11:45; Stop 03/13/17 at 17:51; Status DC Potassium Chloride (KCl 20 Meq Premix Inj) 100 ml @ 50 mls/hr Q2H PRN IV SEE LABEL COMMENTS; Start 03/11/17 at 11:45; Stop 03/13/17 at 17:51; Status DC Sodium Bicarbonate (Sodium Bicarbonate 8.4% Inj) 100 meq UNSCH PRN IV SEE LABEL COMMENTS; Start 03/11/17 at 11:45; Stop 03/13/17 at 17:51; Status DC Sodium Bicarbonate 50 meq 50 meq UNSCH PRN IV SEE LABEL COMMENTS; Start at 11:45; Stop 03/11/17 at 18:18; Status DC Sodium Phosphate/ Sodium Chloride (Sodium Phosphate Inj/NS Inj) 105 ml @ 25 mls /hr UNSCH PRN IV SEE LABEL COMMENTS; Start 03/11/17 at 11:45; Stop 03/13/17 at 17:51; Status DC Sodium Bicarbonate (Sodium Bicarbonate 8.4% Inj) 100 meq ONCE ONCE IV PUSH Last administered on 03/11/17 13:14; Start 03/11/17 at 12:45; Stop 03/11/17 at 12:55; Status DC Sodium Bicarbonate (Sodium Bicarbonate 8.4% Inj) 100 meq ONCE ONCE IV PUSH Last administered on 03/11/17 15:03; Start 03/11/17 at 14:45; Stop 03/11/17 at 14:46; Status DC Miscellaneous Medication (ASP Crit: Path resist to other, cult proven) 1 UNSCH X1 PRN .XX PHARMACY DOCUMENTATION; Start 03/11/17 at 15:30; Stop 03/12/17 at 15 :29; Status DC Miscellaneous Medication 1 1 UNSCH X1 PRN XX PHARMACY DOCUMENTATION; Start at 15:30; Stop 03/12/17 at 15:29; Status DC Meropenem/Sodium Chloride (Merrem Inj/NS Inj) 100 ml @ 200 mls/hr Q8H IV Last administered on 03/14/17 08:12; Start 03/11/17 at 16:00; Stop 03/14/17 at 10:37 ; Status DC Sodium Bicarbonate (Sodium Bicarbonate 8.4% Inj) 50 meq UNSCH PRN IV SEE LABEL COMMENTS; Start 03/11/17 at 18:17; Stop 03/13/17 at 17:56; Status DC Insulin Detemir (Levemir Inj) 4 units Q12HR SQ Last administered on 03/20/17 21:59; Start 03/12/17 at 09:00 Dextrose (D50w (Vial) Inj) 25 ml UNSCH PRN IV PUSH HYPOGLYCEMIA-SEE COMMENTS; Start 03/12/17 at 05:15; Stop 03/13/17 at 17:54; Status DC Glucagon (Glucagon Inj) 1 mg UNSCH PRN OTHER HYPOGLYCEMIA-SEE COMMENTS; Start 03/12/17 at 05:15; Stop 03/13/17 at 17:54; Status DC Insulin Human Regular (NovoLIN R SUPPLEMENTAL SCALE) 1 ACHS SLIDING SCALE SQ Last administered on 03/13/17 16:27; Start 03/12/17 at 07:00; Stop 03/13/17 at 17:54; Status DC Amlodipine Besylate (Norvasc) 10 mg DAILY PO Last administered on 03/21/17 09: 04; Start 03/12/17 at 09:45 Aspirin (Aspirin Chew) 81 mg DAILY CHEW Last administered on 03/21/17 09:03; Start 03/12/17 at 09:45 Isosorbide Mononitrate (Imdur) 30 mg DAILY PO Last administered on 03/21/17 09 :04; Start 03/12/17 at 09:45 Metoprolol Tartrate (Lopressor) 50 mg BID PO Last administered on 03/21/17 09: 04; Start 03/12/17 at 09:45 Pravastatin Sodium (Pravachol) 40 mg DAILY PO Last administered on 03/21/17 09 :04; Start 03/12/17 at 09:45 Acetaminophen (Ofirmev Inj) 1,000 mg Q6H PRN IV PAIN SCALE 7 TO 10 Last administered on 03/13/17 05:46; Start 03/12/17 at 10:00; Stop 03/13/17 at 10:00 ; Status DC Famotidine (Pepcid Inj) 20 mg Q12HR IV PUSH Last administered on 03/12/17 20: 50; Start 03/12/17 at 10:15; Stop 03/13/17 at 08:21; Status DC Metoprolol Tartrate (Lopressor Inj) 2.5 mg Q6H PRN IV PUSH SBP>160, DBP>90 Last administered on 03/12/17 10:45; Start 03/12/17 at 10:30; Stop 03/13/17 at 17:56; Status DC Sodium Hypochlorite ([place] 0.25% Soln) 500 ml BID TOPICAL Last administered on 03/19/17 09:04; Start 03/12/17 at 21:00 Famotidine (Pepcid Inj) 10 mg Q12HR IV PUSH Last administered on 03/15/17 08: 39; Start 03/13/17 at 09:00; Stop 03/15/17 at 21:18; Status DC Dextrose (D50w (Vial) Inj) 25 ml UNSCH PRN IV PUSH HYPOGLYCEMIA-SEE COMMENTS; Start 03/13/17 at 17:45 Glucagon (Glucagon Inj) 1 mg UNSCH PRN OTHER HYPOGLYCEMIA-SEE COMMENTS; Start 03/13/17 at 17:45 Insulin Aspart 1 1 ACHS SLIDING SCALE SQ Last administered on 03/19/17 16:56 ; Start 03/13/17 at 21:00 Sodium Chloride (NS 1000 ml Inj) 1,000 ml @ 70 mls/hr [id number] IV Last administered on 03/16/17 06:25; Start 03/13/17 at 18:53; Stop 03/16/17 at 19:59 ; Status DC Metoclopramide HCl (Reglan Inj) 5 mg TIDAC IV PUSH Last administered on 09:05; Start 03/14/17 at 08:00 Alteplase, Recombinant (Cathflo Activase Inj) 2 mg ONCE ONCE INTRACATH Last administered on 03/13/17 21:48; Start 03/13/17 at 20:00; Stop 03/13/17 at 20:01 ; Status DC Gabapentin (Neurontin) 100 mg TID PO Last administered on 03/21/17 09:04; Start 03/14/17 at 09:00 Acetaminophen/ Hydrocodone Bitart ([place] 5-325 Mg) 1 tab Q4H PRN PO leg pain 1 -5; Start 03/13/17 at 21:00 Acetaminophen/ Hydrocodone Bitart ([place] 7.5-325 Mg) 1 tab Q4H PRN PO leg pain 6-10 Last administered on 03/21/17 09:03; Start 03/13/17 at 21:00 Morphine Sulfate (Morphine Inj) 2 mg Q3H PRN IV PUSH pain if vomiting/NPO Last administered on 03/14/17 04:17; Start 03/13/17 at 21:00 Metronidazole (Flagyl) 500 mg Q8H PO ; Start 03/14/17 at 12:00; Stop 03/14/17 at 12:00; Status DC Vancomycin HCl 125 mg 125 mg QID PO Last administered on 03/21/17 09:05; Start 03/14/17 at 13:00; Stop 03/28/17 at 12:59 Potassium Chloride (KCl 20 Meq Premix Inj) 100 ml @ 50 mls/hr ONCE ONCE IV Last administered on 03/14/17 14:47; Start 03/14/17 at 15:00; Stop 03/14/17 at 16:59; Status DC Lisinopril (Prinivil) 20 mg DAILY PO ; Start 03/16/17 at 09:00; Stop 03/16/17 at 09:00; Status DC Non-Formulary Medication 150 mg DAILY PRN PO REFLUX; Start 03/15/17 at 21:15; Stop 03/15/17 at 21:18; Status DC Lisinopril (Prinivil) 20 mg DAILY PO Last administered on 03/21/17 09:03; Start 03/16/17 at 21:00 Non-Formulary Medication 150 mg DAILY PO ; Start 03/15/17 at 21:15; Status UNV Albuterol/ Ipratropium (Duoneb Neb) 1 ampule QID NEB NEB Last administered on 03/19/17 15:46; Start 03/16/17 at 08:00; Stop 03/20/17 at 08:00; Status DC Famotidine (Pepcid) 20 mg DAILY PO Last administered on 03/21/17 09:04; Start 03/16/17 at 09:00 Bupivacaine HCl (Marcaine Pf 0.5% Inj) 30 ml STK-MED ONCE .ROUTE Last administered on 03/16/17 16:38; Start 03/16/17 at 15:59; Stop 03/16/17 at 16:00 ; Status DC Sodium Chloride (NS Flush) 2 ml UNSCH PRN IV FLUSH FLUSH AFTER USING IV ACCESS ; Start 03/16/17 at 17:00 Sodium Chloride (NS Flush) 2 ml BID IV FLUSH Last administered on 03/21/17 09: 00; Start 03/16/17 at 21:00 Miscellaneous Information (Post-op Orders (for Pharmacy)) STAT ONCE XX ; Start 03/16/17 at 17:00; Stop 03/16/17 at 17:07; Status DC Naloxone HCl (Narcan Inj) 0.4 mg UNSCH PRN IV SEE LABEL COMMENTS; Start at 17:00 Fentanyl Citrate (fentaNYL INJ) 100 mcg STK-MED ONCE .ROUTE ; Start 03/16/17 at 17:14; Stop 03/16/17 at 17:15; Status DC Miscellaneous Information ALL NURSING DEPARTME... UNSCH PRN .XX SEE LABEL COMMENTS; Start 03/16/17 at 17:08; Stop 03/17/17 at 17:07; Status DC Sodium Chloride (NS 250 ml Inj) 250 ml @ 15 mls/hr ONCE ONCE IV Last administered on 03/17/17 00:09; Start 03/16/17 at 20:00; Stop 03/17/17 at 12:39 ; Status DC Diphenhydramine HCl (Benadryl) 25 mg Q4H PRN PO SEE LABEL COMMENTS; Start 03/16 at 20:00; Stop 03/17/17 at 00:01; Status DC Furosemide (Lasix Inj) 20 mg ONCE ONCE IV Last administered on 03/17/17 03:15 ; Start 03/16/17 at 20:00; Stop 03/16/17 at 20:09; Status DC Iohexol (Omnipaque 350 Inj) 100 ml STK-MED ONCE IV ; Start 03/15/17 at 15:34; Stop 03/18/17 at 12:34; Status DC Furosemide (Lasix Inj) 40 mg ONCE ONCE IV PUSH Last administered on 03/18/17 16:30; Start 03/18/17 at 16:30; Stop 03/18/17 at 16:33; Status DC Albumin Human (Albumin 25% Inj) 12.5 gm ONCE ONCE IV Last administered on 03/18 16:30; Start 03/18/17 at 16:30; Stop 03/18/17 at 16:32; Status DC Furosemide (Lasix) 20 mg DAILY PO Last administered on 03/20/17 14:30; Start 03/20/17 at 13:15; Stop 03/21/17 at 07:06; Status DC Docusate Sodium (Colace) 100 mg BID PO Last administered on 03/21/17 09:04; Start 03/20/17 at 13:15 Sennosides (Senokot) 8.6 mg DAILY PO ; Start 03/21/17 at 09:00; Stop 03/21/17 at 09:00; Status DC Magnesium Hydroxide (Milk Of Magnesia Liq) 30 ml ONCE ONCE PO ; Start 03/20/17 at 13:15; Stop 03/20/17 at 13:19; Status DC Magnesium Hydroxide (Milk Of Magnesia Liq) 30 ml DAILY PRN PO CONSTIPATION; Start 03/20/17 at 13:15 Furosemide (Lasix) 40 mg DAILY PO Last administered on 03/21/17 09:04; Start 03/21/17 at 09:00 Magnesium Oxide (Mag-Ox) 400 mg ONCE ONCE PO Last administered on 03/21/17 09 :06; Start 03/21/17 at 08:00; Stop 03/21/17 at 08:01; Status DC Albumin Human (Albumin 25% Inj) 25 gm DAILY IV Last administered on 03/21/17 10:36; Start 03/21/17 at 09:00 Albuterol/ Ipratropium (Duoneb Neb) 1 ampule Q4HR WHILE AWAKE NEB NEB ; Start 03/21/17 at 12:00 Other Results Laboratory Tests Test 03/21/17 05:19 White Blood Count 7.7 TH/MM3 Red Blood Count 2.92 MIL/MM3 Hemoglobin 8.6 GM/DL Hematocrit 25.3 % Mean Corpuscular Volume 86.6 FL Mean Corpuscular Hemoglobin 29.6 PG Mean Corpuscular Hemoglobin 34.2 % Concent Red Cell Distribution Width 14.8 % Platelet Count 265 TH/MM3 Mean Platelet Volume 8.3 FL Neutrophils (%) (Auto) 72.3 % Lymphocytes (%) (Auto) 15.6 % Monocytes (%) (Auto) 10.2 % Eosinophils (%) (Auto) 1.6 % Basophils (%) (Auto) 0.3 % Neutrophils # (Auto) 5.5 TH/MM3 Lymphocytes # (Auto) 1.2 TH/MM3 Monocytes # (Auto) 0.8 TH/MM3 Eosinophils # (Auto) 0.1 TH/MM3 Basophils # (Auto) 0.0 TH/MM3 CBC Comment DIFF FINAL Differential Comment Laboratory Tests Test 03/21/17 05:19 Sodium Level 145 MEQ/L Potassium Level 3.8 MEQ/L Chloride Level 117 MEQ/L Carbon Dioxide Level 23.2 MEQ/L Anion Gap 5 MEQ/L Blood Urea Nitrogen 14 MG/DL Creatinine 0.87 MG/DL Estimat Glomerular Filtration 65 ML/MIN Rate Random Glucose 116 MG/DL Calcium Level 8.1 MG/DL Magnesium Level 1.6 MG/DL Exam-Podiatry Constitutional General appearance: comfortable Nutritional status: overweight Orientation: alert and oriented x3 Dermatological Exam Skin Temp - Right: Within Normal Limits Skin Texture - Right: Within Normal Limits Skin Elasticity - Right: Within Normal Limits Skin Tugor - Right: Within Normal Limits Hair Growth - Right: Within Normal Limits Pigmentation - Right: Within Normal Limits Skin Temp - Left: Within Normal Limits Skin Texture - Left: Within Normal Limits Skin Elasticity - Left: Within Normal Limits Skin Tugor - Left: Within Normal Limits Hair Growth - Left: Within Normal Limits Pigmentation - Left: Within Normal Limits Ulcers: Location/Measurements 90 cm ulceration right medial leg with good granulation. No purulence seen. No erythema seen. Ulceration is a full-thickness ulceration down to and including muscle. Vascular/Lymphatic Exam R Dorsails Pedis: Palpable L Dorsails Pedis: Palpable R Posterior Tibial: Palpable L Posterior Tibial: Palpable Neurologic Exam Present on right: Tingling, Paraesthesia Present on left: Tingling, Paraesthesia Muscle Strength Dorsiflexion (Right): Normal Plantarflexion (Right): Normal Inversion (Right): Normal Eversion (Right): Normal Digital (Right): Normal Dorsiflexion (Left): Normal Plantarflexion (Left): Normal Inversion (Left): Normal Eversion (Left): Normal Digital (Left): Normal Foot Range of Motion Dorsiflexion (Right): Normal Plantarflexion (Right): Normal Inversion (Right): Normal Eversion (Right): Normal Digital (Right): Normal Dorsiflexion (Left): Normal Plantarflexion (Left): Normal Inversion (Left): Normal Eversion (Left): Normal Digital (Left): Normal Assessment & Plan Diagnosis: (1) Diabetes mellitus with peripheral vascular disease Status: Chronic (2) Atherosclerosis of right lower extremity with ulceration Status: Acute A/P PLAN: Dressing was changed on 03/20 by myself. Orders for new culture and sensitivity next dressing change on March 21 were written. Continue to follow the patient. When she is discharged she can be followed in the wound center. Date of visit: March 20, 2017 Date every dictation: March 21, 2017. Problem Qualifiers (1) Atherosclerosis of right lower extremity with ulceration: Qualified Code: I70.232 - Atherosclerosis of [place] artery of right lower extremity with ulceration of calf Je Read DPM Mar 21, 2017 11:44
--- NOTE | 2017-03-21 12:10 | RADRPT ---
EXAM DATE/TIME: 03/21/2017 10:48 [facility] COMPARISON: No previous studies available for comparison. INDICATIONS : Left pleural effusion. MEDICAL HISTORY : Myocardial infarction. Chronic obstructive pulmonary disease. Congestive heart failure. A-fib. Hypert ension. Hiatal hernia. UTI. Arthritis. Diabetes. Anemia. SURGICAL HISTORY : Tonsillectomy. Appendectomy. section. Coronary artery stent. Left knee surgery. ENCOUNTER: Initial ACUITY: 1 day PAIN SCORE: 2/10 LOCATION: Left chest MEASUREMENTS: SKIN TO PARIETAL PLEURA: 2.2 cm SKIN TO MAX SAFE DEPTH: 5.0 cm ESTIMATED FLUID VOLUME: 919 cc FLUID COMPOSITION: simple FINDINGS: Pleural effusion as above. A yoav was placed on the skin surface superficial to the pleural fluid col lection. CONCLUSION: The left pleural effusion was marked. Rafa Nair MD on March 21, 2017 at 12:07 Board Certified Radiologist. This report was verified electronically.
[2017-03-21] MEDS: RESP: ALBUTEROL 2.5 MG/IPRATROPIUM 0.5 MG NEB (SCH) NEB ×3 (12:20→19:48)
--- NOTE | 2017-03-21 12:26 | HHI.PR ---
Subjective Remarks ALERT SOBSLIGHTLY WORSE SAT OK ON N/C Objective Vital Signs Date Time Temp Pulse Resp B/P Pulse Ox O2 Delivery O2 Flow Rate FiO2 03/21/17 08:15 98.6 78 19 197/78 95 03/21/17 08:10 70 03/21/17 04:00 97.6 70 20 157/69 93 03/21/17 00:00 97.8 81 20 136/64 92 03/20/17 20:51 94 03/20/17 20:00 98.9 73 20 157/72 93 03/20/17 20:00 76 03/20/17 16:00 98.4 67 16 140/64 94 I/O 03/20/17 03/20/17 03/20/17 03/21/17 03/21/17 03/21/17 07:00 15:00 23:00 07:00 15:00 23:00 Intake Total 240 ml 0 ml 480 ml Output Total 350 ml 1300 ml Balance -110 ml 0 ml -820 ml Intake Oral 240 ml 480 ml IV Total 0 ml Output Urine Total 350 ml 1300 ml # Bowel Movements 0 Result Diagram: 03/21/17 0519 03/21/17 05 Objective Remarks GENERAL: SKIN: Warm and dry. HEAD: Atraumatic. Normocephalic. EYES: Pupils equal and round. No scleral icterus. No injection or drainage. ENT: No nasal bleeding or discharge. Mucous membranes pink and moist. NECK: Trachea midline. No JVD. CARDIOVASCULAR: Regular rate and rhythm. RESPIRATORY: No accessory muscle use. Clear to auscultation. Breath sounds equal bilaterally. GASTROINTESTINAL: Abdomen soft, non-tender, nondistended. Hepatic and splenic margins not palpable. MUSCULOSKELETAL: Extremities without clubbing, cyanosis, or edema. No obvious deformities. NEUROLOGICAL: Awake and alert. No obvious cranial nerve deficits. Motor grossly within normal limits. Five out of 5 muscle strength in the arms and legs. Normal speech. PSYCHIATRIC: Appropriate mood and affect; insight and judgment normal. Assessment and Plan Assessment and Plan COPD DOG BITE PLAN O2 NEEDED BRONCHODILATOR THERAPY INCREASE ACTIVITY THORACENTESIS Sylvia Ward MD Mar 21, 2017 12:26
[2017-03-22] VITALS (13 sets, daily range): BP systolic 136–175; BP diastolic 62–80; PULSE 65–74; RESP 14–20; TEMP 97.9–98.6; O2SAT 91–96
[2017-03-22] MEDS: CHLORHEXIDINE GLUCONATE 2 % 1 PACK (2 CLOTHS) TOP SCH (04:00)
[2017-03-22] MEDS: INSULIN ASPART SUPPLEMENTAL SCALE SQ SCH ×4 (05:48→21:43)
[2017-03-22] MEDS: RESP: ALBUTEROL 2.5 MG/IPRATROPIUM 0.5 MG NEB (SCH) NEB ×4 (08:19→20:59)
[2017-03-22] MEDS: ASPIRIN 81 MG CHEW TAB CHEW SCH (08:33)
[2017-03-22] MEDS: DOCUSATE SODIUM 100 MG CAP PO SCH ×2 (08:35→21:41)
[2017-03-22] MEDS: METOCLOPRAMIDE HCL 10 MG/2 ML VIAL IV PUSH SCH ×3 (08:35→17:32)
[2017-03-22] MEDS: FAMOTIDINE 20 MG TAB PO SCH (08:35)
[2017-03-22] MEDS: PRAVASTATIN SOD 40 MG TAB PO SCH (08:35)
[2017-03-22] MEDS: VANCOMYCIN 500 MG VIAL (FOR ORAL USE ONLY) PO SCH ×4 (08:35→21:41)
[2017-03-22] MEDS: GABAPENTIN 100 MG CAP PO SCH ×3 (08:35→17:31)
[2017-03-22] MEDS: INSULIN DETEMIR 100 UNITS/ML VIAL SQ SCH ×2 (08:36→21:42)
[2017-03-22] MEDS: LISINOPRIL 20 MG TAB PO SCH (08:36)
[2017-03-22] MEDS: ISOSORBIDE MONONITRATE 30 MG TAB PO SCH (08:36)
[2017-03-22] MEDS: SODIUM CHLORIDE 0.9% FLUSH 10 ML FLUSH IV FLUSH SCH ×4 (08:36→21:42)
[2017-03-22] MEDS: ALBUMIN HUMAN 25% 25 GM/100 ML BAGP IV SCH (08:36)
[2017-03-22] MEDS: METOPROLOL TARTRATE 50 MG TAB PO SCH ×2 (08:36→21:41)
[2017-03-22] MEDS: SODIUM HYPOCHLORITE 0.25% 500 ML BTL TOPICAL SCH ×2 (08:37→21:44)
[2017-03-22] MEDS: FUROSEMIDE 40 MG TAB PO SCH (08:37)
--- NOTE | 2017-03-22 09:33 | HHI.PR ---
Subjective Remarks In bed, says she is sob and will go for thoracentesis today. No chest pain . Has nonproductive cough. Feels tired. No fevers or chills. Had a BM. Objective Vitals Vital Signs Date Time Temp Pulse Resp B/P Pulse Ox O2 Delivery O2 Flow Rate FiO2 03/22/17 08:21 93 Nasal Cannula 2.00 03/22/17 04:00 98.2 65 18 136/80 94 03/22/17 00:00 98.6 65 18 139/62 92 03/21/17 20:00 80 03/21/17 20:00 98.2 83 18 178/76 92 03/21/17 19:49 94 Nasal Cannula 2.00 03/21/17 15:00 98.3 71 19 151/70 91 03/21/17 12:04 98.6 66 18 135/64 92 I/O 03/21/17 03/21/17 03/21/17 03/22/17 03/22/17 03/22/17 07:00 15:00 23:00 07:00 15:00 23:00 Intake Total 480 ml 840 ml 760 ml 480 ml Output Total 1300 ml 550 ml 0 ml 350 ml Balance -820 ml 290 ml 760 ml 130 ml Intake Oral 480 ml 840 ml 660 ml 480 ml IV Total 100 ml Output Urine Total 1300 ml 550 ml 0 ml 350 ml # Voids 0 # Bowel Movements 0 0 0 Result Diagram: 03/21/17 0519 03/21/17 0519 Imaging Last Impressions Chest Ultrasound 03/21/17 0000 Signed Impressions: Service Date/Time: Tuesday, March 21, 2017 10:48 - CONCLUSION: The left pleural effusion was marked. Rafa Nair MD Chest X-Ray 03/20/17 0000 Signed Impressions: Service Date/Time: Monday, March 20, 2017 21:14 - CONCLUSION: Bilateral pleural effusions, large on the left and small on the right. Dewayne Easton MD Aorta w/Runoff CTA 03/15/17 0000 Signed Impressions: Service Date/Time: Wednesday, March 15, 2017 15:34 - CONCLUSION: 1. Inflow is patent down to the common femorals bilaterally despite regional calcification. 2. In the right lower extremity, there is some atherosclerotic irregularity at the adductor hiatus but the profunda, SFA and popliteal are patent down to the trifurcation with dominant runoff via the posterior tibial. 3. In the left lower extremity, some minimal narrowing of the proximal SFA but the common femoral, profunda, SFA and popliteal are patent down to the trifurcation with dominant runoff via the posterior tibial and peroneal. Anterior tibial occludes proximally. 4. Moderate sized bilateral pleural effusions with concomitant atelectatic changes. 5. 2.5 cm fat-containing lesion in the right lower lobe adjacent to the esophagus and posterior to the intrahepatic IVC. 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 6. Mixed density 3.7 cm mass lesion associated with the left adrenal which contains calcium and fat and may represent a myelolipoma which has previously bleed. 7. Diffuse anasarca with fluid in the deep pelvis and bilateral pleural effusions are suggesting right heart insufficiency. 8. Cortical scarring in the upper pole of the right kidney. 9. Nonspecific enhancing areas in the left and right hepatic lobes. These are overtly benign and may represent small hemangiomas. Preet Chavez MD Objective Remarks GENERAL: Well-developed well-nourished. In no acute distress. SKIN: Warm and dry. Right lower extremity wound with clean dressing. HEENT: Normocephalic. Pupils equal and round. Mucous membranes pink and moist. CARDIOVASCULAR: Regular rate and rhythm. No murmur appreciated. RESPIRATORY: No accessory muscle use. Clear to auscultation. Breath sounds equal bilaterally. GASTROINTESTINAL: Abdomen soft, non-tender, nondistended. Bowel sounds x4. MUSCULOSKELETAL: Trace bilateral lower extremity anasarca. No clubbing or cyanosis. NEUROLOGICAL: Awake and alert. No focal neurological deficits. Moves upper and lower extremities spontaneously. Normal speech. PSYCHIATRIC: Appropriate mood and affect; insight and judgment normal. Date of Removal: Mar 14, 2017 A/P Problem List: (1) Clostridium difficile colitis ICD Code: A04.7 Status: Acute (2) Nausea & vomiting ICD Code: R11.2 Status: Resolved (3) Lactic acid acidosis ICD Code: E87.2 Status: Chronic (4) Anemia ICD Code: D64.9 Status: Chronic (5) COPD (chronic obstructive pulmonary disease) ICD Code: J44.9 Status: Chronic (6) HTN (hypertension) ICD Code: I10 Status: Chronic (7) IDDM (insulin dependent diabetes mellitus) ICD Code: E11.9 Status: Chronic (8) Hypothermia ICD Code: T68.XXXA Status: Resolved (9) Sepsis ICD Code: A41.9 Status: Acute (10) Metabolic acidosis ICD Code: E87.2 Status: Resolved (11) DKA (diabetic ketoacidoses) ICD Code: E13.10 Status: Resolved (12) Dog bite of multiple sites of right lower extremity ICD Code: S81.851A Status: Chronic (13) Hypertension ICD Code: I10 Status: Chronic (14) Leukocytosis ICD Code: D72.829 Status: Acute (15) CONOR (acute kidney injury) ICD Code: N17.9 Status: Acute (16) Diarrhea ICD Code: R19.7 Status: Acute (17) CAD (coronary artery disease) ICD Code: I25.10 Status: Chronic (18) Anemia, iron deficiency ICD Code: D50.9 Status: Chronic Assessment and Plan 66-year-old female with: -C.difficile Colitis/constipation: pt with multiple episodes of diarrhea, Cdiff + on 03/13. Infectious disease consulted. Started oral vanco 125mg po q6h [id number] (stop date 03/28). Monitor BMs. Monitor BMP. Diet as tolerated. Leukocytosis resolved. Improved. Now constipation, start cautious bowel regimen. -Severe right lower extremity wound s/p dog bite previous admission, had wound vac on at home (placed 03/02), now dressing changes per plastic. Concern for wound infection on admission, no wound culture. S/p plastic eval with Dr. Moore who felt wound did not appear infected. Blood cultures NGTD. UA, cxr neg. Check prealbumin level to assess nutrition (pending). Optimize glucose control and nutrition. Consulted wound care/podiatry, Dr. Read for outpatient wound management, consideration to hyperbaric oxygen therapy. s/p OR debridement to promote wound healing. CTA aorta with runoff noted - sufficient blood flow. Cleared by Dr. Read for outpatient follow-up with him for further wound management. ID believes wound is colonized, recommends no further antibiotics for wound infection at this time. Podiatry ordered for repeat wound culture. -Type 2 DM - HbA1c 7.1. s/p diabetic education. cont levemir 4 units sq q 12 hr , to hold if not taking meals or glucose<120. SSI low novolog AC, HS, 03:00. Better controlled. -Hypernatremia, hypovolemic - improved. Na within normal limits currently. likely d/t low albumin state. Follow-up labs in the a.m. -Anemia of fe deficiency (possible underlying myelodysplastic disorder as per Dr. Schmidt's outpatient evaluation), also of chronic illness, hb improved s/p transfusion, monitor CBC, Hgb 7.7. Bleeding, transfused 2 units pRBCs, hemoglobin improved to 9.7. Follow-up CBC. -CAD, history stents, C in 2014 with stent to the LAD & RCA per Dr. Reddy -cont metoprolol 50 mg twice a day, aspirin 81 mg/day Isordil. Patient 's medical billing assistant consulted, recommended stopping Effient and starting aspirin and Plavix. -COPD/asthma - chronic, stable. Duo nebs QID scheduled, every 2 hours when necessary, O2 via NC as needed. consulted pulmonology as well (pt does not follow with pulm). -CHF, chronic diastolic. Echo 03/13 shows preserved EF, large left pleural effusion. patient denies hx CHF. she has preserved EF. -Anasarca - suspect due to hypoalbuminemia. she has preserved EF, and no hx liver disease. Continue diuresis with Lasix with albumin. Continue Lim to monitor diuresis. -B/l plerual effusions, likely due to the anasarca: Chest x-ray 03/20 reviewed, large left pleural effusion. Continue diuresis. Plan for thoracentesis. Consulted pulmonology. -Hypertension- labile. Continue amlodipine, metoprolol, Isordil, lisinopril. Added Lasix. -Generalized weakness - continue PT. weakness exacerbated by RLE wound. even prior to admission patient was unable to navigate the 3 steps to her house. Optimally she could be DC'ed to home environment to start hyperbaric O2 as soon as possible. her has built a wheelchair ramp. -Severe malnutrition - hypoalbuminemia d/t poor PO intake, prealbumin 13, consulted dietitian for recs, appreciate input, continue supplementation. -Severe metabolic acidosis, resolved. -Acute metabolic encephalopathy - resolved. -Diabetic Peripheral neuropathy - started on neurontin. lortab prn for pain. -Nausea and vomiting -now resolved. -Sepsis due to c dif colitis, sepsis resolved. -Diabetic ketoacidosis, resolved. Was likely triggered by the colitis. -CONOR - improved -GERD-resume zantac PO. DVT Prophylaxis-Heparin 5000 SQ - held for now due to bleeding. Discharge Planning Hopefully discharge home with outpatient wound care if patient continues to ambulate better. If not, will need SNF. Currently PLAN FOR THORACENTESIS FOR large left pleural effusion. Problem Qualifiers (1) Hypothermia: Qualified Code: T68.XXXA - Hypothermia, initial encounter (2) Sepsis: Qualified Code: A41.9 - Sepsis, due to unspecified organism (3) DKA (diabetic ketoacidoses): Qualified Code: E13.10 - Diabetic ketoacidosis without coma associated with other specified diabetes mellitus (4) Dog bite of multiple sites of right lower extremity: Qualified Code: S81.851D - Dog bite of multiple sites of right lower extremity , subsequent encounter (5) CAD (coronary artery disease): Qualified Code: I25.10 - Coronary artery disease involving [place] coronary artery of [place] heart without angina pectoris Lay Camacho MD Mar 22, 2017 09:33
[2017-03-22] MEDS: ACETAMINOPHEN/HYDROcodone 325 MG/7.5 MG TAB PO PRN ×3 (13:02→21:40)
--- NOTE | 2017-03-22 13:45 | PD.CARD.PN ---
Subjective Subjective Remarks No CP, increased SOB Objective Medications Current Medications Medications (Trade) Dose Ordered Sig/Marie Route Start Time Stop Time Status Last Admin (Sodium Bicarbonate 8.4% Inj/NS 1000 ml Inj) 1,000 ml @ 0 mls/hr Q0M IV 03/11/17 10:39 03/11/17 18:36 (NS Flush) 2 ml UNSCH PRN IV FLUSH 03/11/17 11:30 (NS Flush) 2 ml BID IV FLUSH 03/11/17 21:00 03/22/17 08:36 (Tylenol) 650 mg Q6H PRN PO 03/11/17 11:30 03/12/17 22:29 (Zofran Inj) 4 mg Q6H PRN IV 03/11/17 11:30 03/14/17 21:38 (Dulcolax Supp) 10 mg DAILY PRN RECTAL 03/11/17 11:30 (Heparin Inj) 5,000 units Q8H SQ 03/11/17 13:00 Hold 03/16/17 04:13 Miscellaneous Information 1 Q361D XX 03/11/17 11:30 03/11/17 11:30 (Chlorhexidine 2% Cloth) Taper DAILY@04 TOP 03/12/17 04:00 03/08/18 03:59 03/12/17 03:03 (Chlorhexidine 2% Cloth) 3 pack UNSCH PRN TOP 03/11/17 11:30 (Levemir Inj) 4 units Q12HR SQ 03/12/17 09:00 03/22/17 08:36 (Norvasc) 10 mg DAILY PO 03/12/17 09:45 03/22/17 08:36 (Aspirin Chew) 81 mg DAILY CHEW 03/12/17 09:45 03/21/17 09:03 (Imdur) 30 mg DAILY PO 03/12/17 09:45 03/22/17 08:36 (Lopressor) 50 mg BID PO 03/12/17 09:45 03/22/17 08:36 (Pravachol) 40 mg DAILY PO 03/12/17 09:45 03/22/17 08:35 (Dakin'S 0.25% Soln) 500 ml BID TOPICAL 03/12/17 21:00 03/22/17 08:37 (D50w (Vial) Inj) 25 ml UNSCH PRN IV PUSH 03/13/17 17:45 (Glucagon Inj) 1 mg UNSCH PRN OTHER 03/13/17 17:45 (Reglan Inj) 5 mg TIDAC IV PUSH 03/14/17 08:00 03/22/17 12:56 (Neurontin) 100 mg TID PO 03/14/17 09:00 03/22/17 12:56 ([place] 5-325 Mg) 1 tab Q4H PRN PO 03/13/17 21:00 ([place] 7.5-325 Mg) 1 tab Q4H PRN PO 03/13/17 21:00 03/22/17 13:02 (Morphine Inj) 2 mg Q3H PRN IV PUSH 03/13/17 21:00 03/14/17 04:17 (VANCOMYCIN for oral use only) 125 mg QID PO 03/14/17 13:00 03/28/17 12:59 03/22/17 12:56 (Prinivil) 20 mg DAILY PO 03/16/17 21:00 03/22/17 08:36 (Pepcid) 20 mg DAILY PO 03/16/17 09:00 03/22/17 08:35 (NS Flush) 2 ml UNSCH PRN IV FLUSH 03/16/17 17:00 (NS Flush) 2 ml BID IV FLUSH 03/16/17 21:00 03/22/17 08:36 (Narcan Inj) 0.4 mg UNSCH PRN IV 03/16/17 17:00 (Colace) 100 mg BID PO 03/20/17 13:15 03/22/17 08:35 (Milk Of Magnesia Liq) 30 ml DAILY PRN PO 03/20/17 13:15 (Lasix) 40 mg DAILY PO 03/21/17 09:00 03/22/17 08:37 (Albumin 25% Inj) 25 gm DAILY IV 03/21/17 09:00 03/22/17 08:36 Vital Signs / I&O Vital Signs Date Time Temp Pulse Resp B/P Pulse Ox O2 Delivery O2 Flow Rate FiO2 03/22/17 08:30 73 03/22/17 08:21 93 Nasal Cannula 2.00 03/22/17 04:00 98.2 65 18 136/80 94 03/22/17 00:00 98.6 65 18 139/62 92 03/21/17 20:00 80 03/21/17 20:00 98.2 83 18 178/76 92 03/21/17 19:49 94 Nasal Cannula 2.00 03/21/17 15:00 98.3 71 19 151/70 91 I/O 03/21/17 03/21/17 03/21/17 03/22/17 03/22/17 03/22/17 07:00 15:00 23:00 07:00 15:00 23:00 Intake Total 480 ml 840 ml 760 ml 480 ml Output Total 1300 ml 550 ml 0 ml 350 ml Balance -820 ml 290 ml 760 ml 130 ml Intake Oral 480 ml 840 ml 660 ml 480 ml IV Total 100 ml Output Urine Total 1300 ml 550 ml 0 ml 350 ml # Voids 0 # Bowel Movements 0 0 0 Physical Exam GENERAL: In NAD SKIN: Warm and dry. HEAD: Normocephalic. EYES: No scleral icterus. No injection or drainage. NECK: Supple, trachea midline. No JVD or lymphadenopathy. CARDIOVASCULAR: Regular rate and rhythm without murmurs, gallops, or rubs. RESPIRATORY: Breath sounds equal bilaterally. No accessory muscle use. GASTROINTESTINAL: Abdomen soft, non-tender, nondistended. MUSCULOSKELETAL: No cyanosis, or edema. RLE dressing intact Laboratory Laboratory Tests Test 03/16/17 03/21/17 22:13 05:19 Blood Type B NEGATIVE Antibody Screen NEGATIVE Crossmatch Leukocyte-Reduced Red Blood Cells Blood Bank Comment White Blood Count 7.7 TH/MM3 Red Blood Count 2.92 MIL/MM3 Hemoglobin 8.6 GM/DL Hematocrit 25.3 % Mean Corpuscular Volume 86.6 FL Mean Corpuscular Hemoglobin 29.6 PG Mean Corpuscular Hemoglobin 34.2 % Concent Red Cell Distribution Width 14.8 % Platelet Count 265 TH/MM3 Mean Platelet Volume 8.3 FL Neutrophils (%) (Auto) 72.3 % Lymphocytes (%) (Auto) 15.6 % Monocytes (%) (Auto) 10.2 % Eosinophils (%) (Auto) 1.6 % Basophils (%) (Auto) 0.3 % Neutrophils # (Auto) 5.5 TH/MM3 Lymphocytes # (Auto) 1.2 TH/MM3 Monocytes # (Auto) 0.8 TH/MM3 Eosinophils # (Auto) 0.1 TH/MM3 Basophils # (Auto) 0.0 TH/MM3 CBC Comment DIFF FINAL Differential Comment Sodium Level 145 MEQ/L Potassium Level 3.8 MEQ/L Chloride Level 117 MEQ/L Carbon Dioxide Level 23.2 MEQ/L Anion Gap 5 MEQ/L Blood Urea Nitrogen 14 MG/DL Creatinine 0.87 MG/DL Estimat Glomerular Filtration 65 ML/MIN Rate Random Glucose 116 MG/DL Calcium Level 8.1 MG/DL Magnesium Level 1.6 MG/DL Imaging Last Impressions Chest Ultrasound 03/21/17 0000 Signed Impressions: Service Date/Time: Tuesday, March 21, 2017 10:48 - CONCLUSION: The left pleural effusion was marked. Rafa Nair MD Chest X-Ray 03/20/17 0000 Signed Impressions: Service Date/Time: Monday, March 20, 2017 21:14 - CONCLUSION: Bilateral pleural effusions, large on the left and small on the right. Dewayne Easton MD Aorta w/Runoff CTA 03/15/17 0000 Signed Impressions: Service Date/Time: Wednesday, March 15, 2017 15:34 - CONCLUSION: 1. Inflow is patent down to the common femorals bilaterally despite regional calcification. 2. In the right lower extremity, there is some atherosclerotic irregularity at the adductor hiatus but the profunda, SFA and popliteal are patent down to the trifurcation with dominant runoff via the posterior tibial. 3. In the left lower extremity, some minimal narrowing of the proximal SFA but the common femoral, profunda, SFA and popliteal are patent down to the trifurcation with dominant runoff via the posterior tibial and peroneal. Anterior tibial occludes proximally. 4. Moderate sized bilateral pleural effusions with concomitant atelectatic changes. 5. 2.5 cm fat-containing lesion in the right lower lobe adjacent to the esophagus and posterior to the intrahepatic IVC. 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 6. Mixed density 3.7 cm mass lesion associated with the left adrenal which contains calcium and fat and may represent a myelolipoma which has previously bleed. 7. Diffuse anasarca with fluid in the deep pelvis and bilateral pleural effusions are suggesting right heart insufficiency. 8. Cortical scarring in the upper pole of the right kidney. 9. Nonspecific enhancing areas in the left and right hepatic lobes. These are overtly benign and may represent small hemangiomas. Preet Chavez MD Assessment and Plan Problem List: (1) CAD (coronary artery disease) (2) IDDM (insulin dependent diabetes mellitus) (3) Hypertension (4) Acute kidney insufficiency (5) Clostridium difficile colitis (6) Dog bite of multiple sites of right lower extremity Assessment and Plan Continue monitoring. Recommend to resume platelet inhibitors (stop Effient and use clopidogrel, continue baby ASA) once OK with surgery and bleeding risk is minimal. Increase activity. Continue tx for angina and aggressive risk factor modification. Continue antibiotics for LE infection. Cont tx for COPD. Thoracentesis planned by Dr. Ward. Problem Qualifiers (1) CAD (coronary artery disease): Qualified Code: I25.10 - Coronary artery disease involving [place] coronary artery of [place] heart without angina pectoris (2) Dog bite of multiple sites of right lower extremity: Qualified Code: S81.851D - Dog bite of multiple sites of right lower extremity , subsequent encounter Dunia Reddy MD Mar 22, 2017 13:45
--- NOTE | 2017-03-22 16:20 | RADRPT ---
EXAM DATE/TIME: 03/22/2017 15:54 [facility] COMPARISON: No previous studies available for comparison. INDICATIONS : Post left thoracentesis MEDICAL HISTORY : Hypertension. Chronic obstructive pulmonary disease. Congestive heart fa ilure. SURGICAL HISTORY : Coronary artery stent. ENCOUNTER: Subsequent ACUITY: 1 week PAIN SCORE: 0/10 LOCATION: chest FINDINGS: A single frontal expiratory view of the chest was performed. Mediastinal structures are in the midli ne. Left-sided jugular line with tip in SVC without pneumothorax. Osseous structures are intact. CONCLUSION: Cardiomegaly with bibasilar densities. No pneumothorax Je Fletcher MD on March 22, 2017 at 16:18 Board Certified Radiologist. This report was verified electronically.
--- NOTE | 2017-03-22 16:39 | RADRPT ---
EXAM DATE/TIME: 03/22/2017 00:00 [facility] COMPARISON: No previous studies available for comparison. INDICATIONS : Left pleural effusion. MEDICAL HISTORY : Hypertension. Myocardial infarction. Chronic obstructive pulmonary disease. Congestive heart failure. Coronary artery disease. Diabetes. SURGICAL HISTORY : Tonsillectomy. section. Hysterectomy. Laminectomy. Cardiac stents. Appendectomy. ENCOUNTER: Initial ACUITY: 1 day PAIN SCORE: 0/10 LOCATION: Left FLUID: Total volume of 1,450 cc of cloudy, red fluid was removed. Fluid was sent to lab for ordered studies. TECHNIQUE: 1. Ultrasound guidance for thoracentesis. 2. Thoracentesis. The risks, benefits, and alternatives to ultrasound guided thoracentesis were explained to the patien t in lay simple terms, including the risk of bleeding and infection. Written and verbal informed con sent was obtained. Appropriate area for thoracentesis was marked under ultrasound guidance with the patient in the uprig ht position. Overlying skin was prepped and draped in the usual sterile fashion and with local anest hetic, a dermatotomy was made with an 11 blade scalpel. A 6 [place] thoracentesis catheter was placed in the pleural space and fluid was removed. Catheter was then removed and a sterile dressing applie d. There were no immediate complications. The patient tolerated the procedure well and the left the ultrasound suite in stable condition. Chest radiograph is to be obtained. CONCLUSION: Uncomplicated ultrasound guided thoracentesis. Je Fletcher MD on March 22, 2017 at 16:37 Board Certified Radiologist. This report was verified electronically.
--- NOTE | 2017-03-22 17:35 | HHI.PR ---
Subjective Remarks ALERT SOBSLIGHTLY WORSE SAT OK ON N/C Objective Vital Signs Date Time Temp Pulse Resp B/P Pulse Ox O2 Delivery O2 Flow Rate FiO2 03/22/17 16:36 74 18 174/68 92 03/22/17 16:21 98.4 71 19 161/79 91 03/22/17 15:10 97.9 74 14 146/71 92 03/22/17 12:00 98.0 71 16 161/72 93 03/22/17 08:30 73 03/22/17 08:21 93 Nasal Cannula 2.00 03/22/17 08:00 98.5 74 20 175/78 93 03/22/17 04:00 98.2 65 18 136/80 94 03/22/17 00:00 98.6 65 18 139/62 92 03/21/17 20:00 80 03/21/17 20:00 98.2 83 18 178/76 92 03/21/17 19:49 94 Nasal Cannula 2.00 I/O 03/21/17 03/21/17 03/21/17 03/22/17 03/22/17 03/22/17 07:00 15:00 23:00 07:00 15:00 23:00 Intake Total 480 ml 840 ml 760 ml 480 ml Output Total 1300 ml 550 ml 0 ml 350 ml Balance -820 ml 290 ml 760 ml 130 ml Intake Oral 480 ml 840 ml 660 ml 480 ml IV Total 100 ml Output Urine Total 1300 ml 550 ml 0 ml 350 ml # Voids 0 # Bowel Movements 0 0 0 Result Diagram: 03/21/1751803/21/17518 Objective Remarks GENERAL: SKIN: Warm and dry. HEAD: Atraumatic. Normocephalic. EYES: Pupils equal and round. No scleral icterus. No injection or drainage. ENT: No nasal bleeding or discharge. Mucous membranes pink and moist. NECK: Trachea midline. No JVD. CARDIOVASCULAR: Regular rate and rhythm. RESPIRATORY: No accessory muscle use. Clear to auscultation. Breath sounds equal bilaterally. GASTROINTESTINAL: Abdomen soft, non-tender, nondistended. Hepatic and splenic margins not palpable. MUSCULOSKELETAL: Extremities without clubbing, cyanosis, or edema. No obvious deformities. NEUROLOGICAL: Awake and alert. No obvious cranial nerve deficits. Motor grossly within normal limits. Five out of 5 muscle strength in the arms and legs. Normal speech. PSYCHIATRIC: Appropriate mood and affect; insight and judgment normal. Assessment and Plan Assessment and Plan COPD DOG BITE PLAN O2 NEEDED BRONCHODILATOR THERAPY INCREASE ACTIVITY THORACENTESIS Sylvia Ward MD Mar 22, 2017 17:35
[2017-03-22 21:15] LABS: TOTAL PROTEIN,PLEURAL FLUID 1.5 GM/DL
[2017-03-22 22:12] LABS: PLEURAL FLUID LYMPHS 37 %
[2017-03-23] MEDS: ACETAMINOPHEN/HYDROcodone 325 MG/7.5 MG TAB PO PRN ×2 (03:31→08:23)
[2017-03-23 03:42] VITALS: BP 150/68; PULSE 65; RESP 18; TEMP 98.5; O2SAT 95
[2017-03-23] MEDS: CHLORHEXIDINE GLUCONATE 2 % 1 PACK (2 CLOTHS) TOP SCH (04:00)
[2017-03-23] MEDS: INSULIN ASPART SUPPLEMENTAL SCALE SQ SCH ×2 (05:39→11:00)
[2017-03-23 07:30] LABS: AUTOMATED NEUTROPHIL # 5.2 TH/MM3 (1.8-7.7); BASOPHIL % 0.6 % (0.0-2.0); EOSINOPHIL # 0.2 TH/MM3 (0-0.4); EOSINOPHIL % 2.3 % (0.0-4.0); HEMATOCRIT 23.1 % (35.0-46.0); HEMO FLAGS DIFF FINAL; MEAN CELL VOLUME 88.4 FL (80.0-100.0); MEAN CORPUSCULAR HGB CONC 32.8 % (32.0-36.0); MONO % 7.4 % (0.0-8.0); NEUT % 75.7 % (16.0-70.0); PLATELET COUNT 240 TH/MM3 (150-450); RED BLOOD COUNT 2.61 MIL/MM3 (4.00-5.30); RED CELL DISTRIBUTION WIDTH 15.4 % (11.6-17.2); WHITE BLOOD COUNT 6.9 TH/MM3 (4.0-11.0)
[2017-03-23 07:53] LABS: BICARBONATE 25.6 MEQ/L (21.0-32.0); POTASSIUM 3.8 MEQ/L (3.5-5.1)
[2017-03-23] MEDS: RESP: ALBUTEROL 2.5 MG/IPRATROPIUM 0.5 MG NEB (SCH) NEB ×2 (07:57→11:49)
[2017-03-23 07:58] VITALS: O2SAT 94
[2017-03-23 08:00] VITALS: BP_SYST 100; BP_SYST 173; BP_DIAS 59; BP_DIAS 74; PULSE 63; PULSE 85; RESP 16; RESP 20; TEMP 98.7; TEMP 99.4; O2SAT 91; O2SAT 96
[2017-03-23] MEDS: METOCLOPRAMIDE HCL 10 MG/2 ML VIAL IV PUSH SCH ×2 (08:22→11:43)
[2017-03-23] MEDS: ISOSORBIDE MONONITRATE 30 MG TAB PO SCH (08:22)
[2017-03-23] MEDS: ALBUMIN HUMAN 25% 25 GM/100 ML BAGP IV SCH (08:22)
[2017-03-23] MEDS: FAMOTIDINE 20 MG TAB PO SCH (08:23)
[2017-03-23] MEDS: PRAVASTATIN SOD 40 MG TAB PO SCH (08:23)
[2017-03-23] MEDS: LISINOPRIL 20 MG TAB PO SCH (08:23)
[2017-03-23] MEDS: METOPROLOL TARTRATE 50 MG TAB PO SCH (08:23)
[2017-03-23] MEDS: DOCUSATE SODIUM 100 MG CAP PO SCH (08:23)
[2017-03-23] MEDS: GABAPENTIN 100 MG CAP PO SCH ×2 (08:23→11:44)
[2017-03-23] MEDS: FUROSEMIDE 40 MG TAB PO SCH (08:23)
[2017-03-23] MEDS: ASPIRIN 81 MG CHEW TAB CHEW SCH (08:23)
[2017-03-23] MEDS: INSULIN DETEMIR 100 UNITS/ML VIAL SQ SCH (08:24)
[2017-03-23] MEDS: VANCOMYCIN 500 MG VIAL (FOR ORAL USE ONLY) PO SCH ×2 (08:24→11:43)
[2017-03-23] MEDS: SODIUM CHLORIDE 0.9% FLUSH 10 ML FLUSH IV FLUSH SCH ×2 (08:24)
[2017-03-23] MEDS: SODIUM HYPOCHLORITE 0.25% 500 ML BTL TOPICAL SCH (08:28)
[2017-03-23 08:30] VITALS: PULSE 64
--- NOTE | 2017-03-23 11:02 | HHI.PR ---
Subjective Remarks Feels much better after thoracentesis yesterday. Less sob. Less cough. Eating well. No fevers or chills. Wants to go home and not to SNF. PT will reevaluate the patient No n/v/d/c. Objective Vitals Vital Signs Date Time Temp Pulse Resp B/P Pulse Ox O2 Delivery O2 Flow Rate FiO2 03/23/17 08:30 64 03/23/17 08:00 98.7 63 20 173/74 96 03/23/17 07:58 94 Nasal Cannula 2.00 03/23/17 03:42 98.5 65 18 150/68 95 03/22/17 23:50 98.5 68 18 143/65 95 03/22/17 21:00 96 Nasal Cannula 3.00 03/22/17 20:04 98.5 71 18 159/69 95 03/22/17 16:36 74 18 174/68 92 03/22/17 16:21 98.4 71 19 161/79 91 03/22/17 16:00 97.9 73 16 162/68 91 03/22/17 15:10 97.9 74 14 146/71 92 03/22/17 12:00 98.0 71 16 161/72 93 I/O 03/22/17 03/22/17 03/22/17 03/23/17 03/23/17 03/23/17 07:00 15:00 23:00 07:00 15:00 23:00 Intake Total 480 ml 480 ml 480 ml 240 ml Output Total 350 ml 1000 ml 350 ml 200 ml Balance 130 ml -520 ml 130 ml 40 ml Intake Oral 480 ml 480 ml 480 ml 240 ml Output Urine Total 350 ml 1000 ml 350 ml 200 ml # Bowel Movements 0 0 0 0 Result Diagram: 03/23/1730 03/23/17 0630 Imaging Last Impressions Thoracentesis Ultrasound 03/22/17 0000 Signed Impressions: Service Date/Time: Wednesday, March 22, 2017 00:00 - CONCLUSION: Uncomplicated ultrasound guided thoracentesis. Je Fletcher MD Chest X-Ray 03/22/17 0000 Signed Impressions: Service Date/Time: Wednesday, March 22, 2017 15:54 - CONCLUSION: Cardiomegaly with bibasilar densities. No pneumothorax Je Fletcher MD Chest Ultrasound 03/21/17 0000 Signed Impressions: Service Date/Time: Tuesday, March 21, 2017 10:48 - CONCLUSION: The left pleural effusion was marked. Rafa Nair MD Aorta w/Runoff CTA 03/15/17 0000 Signed Impressions: Service Date/Time: Wednesday, March 15, 2017 15:34 - CONCLUSION: 1. Inflow is patent down to the common femorals bilaterally despite regional calcification. 2. In the right lower extremity, there is some atherosclerotic irregularity at the adductor hiatus but the profunda, SFA and popliteal are patent down to the trifurcation with dominant runoff via the posterior tibial. 3. In the left lower extremity, some minimal narrowing of the proximal SFA but the common femoral, profunda, SFA and popliteal are patent down to the trifurcation with dominant runoff via the posterior tibial and peroneal. Anterior tibial occludes proximally. 4. Moderate sized bilateral pleural effusions with concomitant atelectatic changes. 5. 2.5 cm fat-containing lesion in the right lower lobe adjacent to the esophagus and posterior to the intrahepatic IVC. 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 6. Mixed density 3.7 cm mass lesion associated with the left adrenal which contains calcium and fat and may represent a myelolipoma which has previously bleed. 7. Diffuse anasarca with fluid in the deep pelvis and bilateral pleural effusions are suggesting right heart insufficiency. 8. Cortical scarring in the upper pole of the right kidney. 9. Nonspecific enhancing areas in the left and right hepatic lobes. These are overtly benign and may represent small hemangiomas. Preet Chavez MD Objective Remarks GENERAL: Well-developed well-nourished. In no acute distress. SKIN: Warm and dry. Right lower extremity wound with clean dressing. HEENT: Normocephalic. Pupils equal and round. Mucous membranes pink and moist. CARDIOVASCULAR: Regular rate and rhythm. No murmur appreciated. RESPIRATORY: No accessory muscle use. Clear to auscultation. Breath sounds equal bilaterally. GASTROINTESTINAL: Abdomen soft, non-tender, nondistended. Bowel sounds x4. MUSCULOSKELETAL: Trace bilateral lower extremity anasarca. No clubbing or cyanosis. NEUROLOGICAL: Awake and alert. No focal neurological deficits. Moves upper and lower extremities spontaneously. Normal speech. PSYCHIATRIC: Appropriate mood and affect; insight and judgment normal. Date of Removal: Mar 14, 2017 A/P Problem List: (1) Clostridium difficile colitis ICD Code: A04.7 Status: Acute (2) Nausea & vomiting ICD Code: R11.2 Status: Resolved (3) Lactic acid acidosis ICD Code: E87.2 Status: Chronic (4) Anemia ICD Code: D64.9 Status: Chronic (5) COPD (chronic obstructive pulmonary disease) ICD Code: J44.9 Status: Chronic (6) HTN (hypertension) ICD Code: I10 Status: Chronic (7) IDDM (insulin dependent diabetes mellitus) ICD Code: E11.9 Status: Chronic (8) Hypothermia ICD Code: T68.XXXA Status: Resolved (9) Sepsis ICD Code: A41.9 Status: Acute (10) Metabolic acidosis ICD Code: E87.2 Status: Resolved (11) DKA (diabetic ketoacidoses) ICD Code: E13.10 Status: Resolved (12) Dog bite of multiple sites of right lower extremity ICD Code: S81.851A Status: Chronic (13) Hypertension ICD Code: I10 Status: Chronic (14) Leukocytosis ICD Code: D72.829 Status: Acute (15) CONOR (acute kidney injury) ICD Code: N17.9 Status: Acute (16) Diarrhea ICD Code: R19.7 Status: Acute (17) CAD (coronary artery disease) ICD Code: I25.10 Status: Chronic (18) Anemia, iron deficiency ICD Code: D50.9 Status: Chronic Assessment and Plan 66-year-old female with: -C.difficile Colitis/constipation: pt with multiple episodes of diarrhea, Cdiff + on 03/13. Infectious disease consulted. Started oral vanco 125mg po q6h s3tflis (stop date 03/28). Monitor BMs. Monitor BMP. Diet as tolerated. Leukocytosis resolved. Improved. Now constipation, start cautious bowel regimen. -Severe right lower extremity wound s/p dog bite previous admission, had wound vac on at home (placed 03/02), now dressing changes per plastic. Concern for wound infection on admission, no wound culture. S/p plastic eval with Dr. Moore who felt wound did not appear infected. Blood cultures NGTD. UA, cxr neg. Check prealbumin level to assess nutrition (pending). Optimize glucose control and nutrition. Consulted wound care/podiatry, Dr. Read for outpatient wound management, consideration to hyperbaric oxygen therapy. s/p OR debridement to promote wound healing. CTA aorta with runoff noted - sufficient blood flow. Cleared by Dr. Read for outpatient follow-up with him for further wound management. ID believes wound is colonized, recommends no further antibiotics for wound infection at this time. Podiatry ordered for repeat wound culture. -Type 2 DM - HbA1c 7.1. s/p diabetic education. cont levemir 4 units sq q 12 hr , to hold if not taking meals or glucose<120. SSI low novolog AC, HS, 03:00. Better controlled. -Hypernatremia, hypovolemic - improved. Na within normal limits currently. likely d/t low albumin state. Follow-up labs in the a.m. -Anemia of fe deficiency (possible underlying myelodysplastic disorder as per Dr. Schmidt's outpatient evaluation), also of chronic illness, hb improved s/p transfusion, monitor CBC, Hgb 7.7. Bleeding, transfused 2 units pRBCs, hemoglobin improved to 9.7. Follow-up CBC. -CAD, history stents, [facility] in 2014 with stent to the LAD & RCA per Dr. Reddy -cont metoprolol 50 mg twice a day, aspirin 81 mg/day Isordil. Patient 's oil burner consulted, recommended stopping Effient and starting aspirin and Plavix. -COPD/asthma - chronic, stable. Duo nebs QID scheduled, every 2 hours when necessary, O2 via NC as needed. consulted pulmonology as well (pt does not follow with pulm). -CHF, chronic diastolic. Echo 03/13 shows preserved EF, large left pleural effusion. patient denies hx CHF. she has preserved EF. -Anasarca - suspect due to hypoalbuminemia. she has preserved EF, and no hx liver disease. Continue diuresis with Lasix with albumin. Continue Lim to monitor diuresis. -B/l plerual effusions, likely due to the anasarca: Chest x-ray 03/20 reviewed, large left pleural effusion. Continue diuresis. S/P thoracentesis 03/22 with 1.4 L, feels improved. Consulted pulmonology. -Hypertension- labile. Continue amlodipine, metoprolol, Isordil, lisinopril. Added Lasix. -Generalized weakness - continue PT. weakness exacerbated by RLE wound. even prior to admission patient was unable to navigate the 3 steps to her house. Optimally she could be DC'ed to home environment to start hyperbaric O2 as soon as possible. her has built a wheelchair ramp. -Severe malnutrition - hypoalbuminemia d/t poor PO intake, prealbumin 13, consulted dietitian for recs, appreciate input, continue supplementation. -Severe metabolic acidosis, resolved. -Acute metabolic encephalopathy - resolved. -Diabetic Peripheral neuropathy - started on neurontin. lortab prn for pain. -Nausea and vomiting -now resolved. -Sepsis due to c dif colitis, sepsis resolved. -Diabetic ketoacidosis, resolved. Was likely triggered by the colitis. -CONOR - improved -GERD-resume zantac PO. DVT Prophylaxis-Heparin 5000 SQ - held for now due to bleeding. Discharge Planning Hopefully discharge home with outpatient wound care if patient continues to ambulate better. If not, will need SNF. Patient is improving, pT to reevaluate patient for DC recommendations. Problem Qualifiers (1) Hypothermia: Qualified Code: T68.XXXA - Hypothermia, initial encounter (2) Sepsis: Qualified Code: A41.9 - Sepsis, due to unspecified organism (3) DKA (diabetic ketoacidoses): Qualified Code: E13.10 - Diabetic ketoacidosis without coma associated with other specified diabetes mellitus (4) Dog bite of multiple sites of right lower extremity: Qualified Code: S81.851D - Dog bite of multiple sites of right lower extremity , subsequent encounter (5) CAD (coronary artery disease): Qualified Code: I25.10 - Coronary artery disease involving la posta coronary artery of [place] post[place] heart without angina pectoris Lay Camacho MD Mar 23, 2017 11:02
--- NOTE | 2017-03-23 11:35 | HHI.PR ---
Addendum to Inpatient Note Addendum Reason: Additional Documentation Additional Information case d,w in view of her recent Cdiff will treat her with no systemic antibiotics but continue wound care and Hyperbaric oxygen therapy. dw Ok to DC from ID standpoint: Dori Blue MD Mar 23, 2017 11:35
[2017-03-23 12:00] VITALS: BP 114/65; PULSE 69; RESP 18; TEMP 98.4; O2SAT 92
--- NOTE | 2017-03-23 12:25 | HHI.DS ---
Discharge Summary Admission Date Mar 11, 2017 at 10:48 Discharge Date: Mar 23, 2017 Admitting Diagnosis DKA, sepsis (1) Clostridium difficile colitis ICD Code: A04.7 Diagnosis: Principal (2) Nausea & vomiting ICD Code: R11.2 Diagnosis: Principal (3) Lactic acid acidosis ICD Code: E87.2 Diagnosis: Principal (4) Anemia ICD Code: D64.9 Diagnosis: Secondary (5) COPD (chronic obstructive pulmonary disease) ICD Code: J44.9 Diagnosis: Secondary (6) HTN (hypertension) ICD Code: I10 Diagnosis: Secondary (7) IDDM (insulin dependent diabetes mellitus) ICD Code: E11.9 Diagnosis: Secondary (8) Hypothermia ICD Code: T68.XXXA Diagnosis: Secondary (9) Sepsis ICD Code: A41.9 Diagnosis: Principal (10) Metabolic acidosis ICD Code: E87.2 Diagnosis: Principal (11) DKA (diabetic ketoacidoses) ICD Code: E13.10 Diagnosis: Principal (12) Dog bite of multiple sites of right lower extremity ICD Code: S81.851A Diagnosis: Principal (13) Hypertension ICD Code: I10 (14) CONOR (acute kidney injury) ICD Code: N17.9 Diagnosis: Secondary (15) Diarrhea ICD Code: R19.7 Diagnosis: Principal (16) CAD (coronary artery disease) ICD Code: I25.10 Diagnosis: Secondary (17) Anemia, iron deficiency ICD Code: D50.9 Diagnosis: Secondary (18) Pleural effusion, left ICD Code: J90 Diagnosis: Principal Procedures thoracentesis 03/22/17 Brief History - From Admission 66-year-old female was brought to the ER by EMS this a.m.. The patient was noted to be tachypneic 30's and tachycardic 130's, patient has a medical history significant for diabetes, blood glucose levels were obtained noted to be 500 mg/deciliter. The patient was alert and oriented 3. Upon admission to the ED, the patient received 3 L normal saline, insulin infusion initiated. Laboratory studies were obtained, patient was noted to be in DKA. DKA protocol initiated. Critical care medicine's consult for management. Upon entering the room, the patient was noted to have a respiratory rate in the 30s, alert and oriented, hemodynamically stable MAP's ranging [id number]. The patient appears to be protecting her airway at this time, Discussed with patient the possibility of intubation if required. History PFSH Past Medical History Narrative Medical List of her past medical, surgical, social and family history was reviewed from the nursing note. Hx Anticoagulant Therapy: Yes Anemia: Yes (iron deficiency) Arthritis: Yes Asthma: Yes Heart Rhythm Problems: No Cancer: No Cardiovascular Problems: Yes (htn on med, Hx SC with stents) High Cholesterol: No Chest Pain: Yes Congestive Heart Failure: Yes COPD: Yes Cerebrovascular Accident: No Coronary Artery Disease: Yes Diabetes: Yes (type 1) Diminished Hearing: No Endocrine: No Gastrointestinal Disorders: No GERD: No Genitourinary: No Headaches: No Hepatitis: No Hiatal Hernia: Yes Hypertension: Yes Immune Disorder: No Implanted Vascular Access Dvce: No Kidney Stones: No Musculoskeletal: Yes (ARTHRITIS) Neurologic: Yes (LAMINECTOMY,SIATICA, NEUROPATHY) Psychiatric: No Reproductive: No Respiratory: Yes (copd) Immunizations Current: No Migraines: Yes Myocardial Infarction: Yes (STENTS X 2) Renal Failure: No Seizures: No Sleep Apnea: No Thyroid Disease: No Ulcer: No Menopausal: Yes : 1 Para: 1 Miscarriage: 0 Past Surgical History Abdominal Surgery: Yes (appy) AICD: No Appendectomy: Yes Body Medical Devices: CARDIAC STENTS Cardiac Surgery: No Section: Yes Ear Surgery: No Endocrine Surgery: No Eye Surgery: No Genitourinary Surgery: No Gynecologic Surgery: Yes (C-SECT., HYSTERECTOMY) Hysterectomy: Yes Joint Replacement: No Neurologic Surgery: No Oral Surgery: Yes (TONSILS) Pacemaker: No Thoracic Surgery: No Tonsillectomy: Yes (ADENOIDS) Other Surgery: Yes (LEFT WRIST GANGLION CYST) Social History Alcohol Use: No Tobacco Use: No (QUIT 2001) Substance Use: No Allergies-Medications Allergies-Medications (Allergen,Severity, Reaction): Coded Allergies: Darvon (Verified Allergy, Mild, RASH, 03/11/17) *MDRO Multi-Drug Resistant Organism (Verified Adverse Reaction, Unknown, ) 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 Comments List of her allergies reviewed from the nursing note. Reported Meds & Prescriptions Reported Meds & Active Scripts Active Hydrocodone-Acetaminophen 5-325 mg Tab 1 Tab PO Q6H PRN Levofloxacin 500 Mg Tab 500 Mg PO DAILY Levemir Inj (Insulin Detemir) 1,000 unit/ 10 ML Vial 6 Units SQ DAILY Norvasc (Amlodipine Besylate) 10 Mg Tab 10 Mg PO DAILY Reported Zinc (Zinc Gluconate) 50 Mg Tab 50 Mg PO DAILY B-12 (Cyanocobalamin) 2,500 Mcg Subl 2,500 Mcg PO DAILY Nitroglycerin SL (Nitroglycerin) 0.4 Mg Subl 0.4 Mg SL DIRECTED PRN ONE TABLET UNDER THE TONGUE NEEDED FOR CHEST PAIN, MAY REPEAT EVERY FIVE MINUTES FOR A TOTAL OF 3 DOSES OR CALL 911 IF NO RELIEF Isosorbide Mononitrate ER (Isosorbide Mononitrate) 30 Mg [place] 30 Mg PO DAILY Spironolactone 25 Mg Tab 25 Mg PO DAILY Pravastatin 40 Mg Tab 40 Mg PO DAILY Ranitidine (Ranitidine HCl) 150 Mg Cap 150 Mg PO DAILY PRN Jocelyn-Colace (Sennosides-Docusate Sodium) 8.6-50 Mg Tab 2 Tab PO DAILY Novolog Inj (Insulin Aspart) 1,000 Unit/10 Ml Vial Unknown Dose SQ ACHS Sliding Scale as directed. Metoprolol Tartrate 50 Mg Tab 50 Mg PO BID Lisinopril 20 Mg Tab 20 Mg PO DAILY Folic Acid 800 Mcg Tab 1,600 Mcg PO DAILY Effient (Prasugrel) 10 Mg Tab 10 Mg PO DAILY Aspirin 81 Mg Chew 81 Mg CHEW DAILY Narrative Medication List of her home medications reviewed from the nursing note. ROS Review of Systems Except as stated in HPI: all other systems reviewed are Neg CBC/BMP: 03/23/17 0630 03/23/17 0630 Significant Findings Laboratory Tests Test 03/21/17 03/22/17 03/23/17 05:19 13:45 06:30 Red Blood Count 2.92 MIL/MM3 2.61 MIL/MM3 (4.00-5.30) (4.00-5.30) Hemoglobin 8.6 GM/DL 7.6 GM/DL (11.6-15.3) (11.6-15.3) Hematocrit 25.3 % 23.1 % (35.0-46.0) (35.0-46.0) Neutrophils (%) (Auto) 72.3 % 75.7 % (16.0-70.0) (16.0-70.0) Monocytes (%) (Auto) 10.2 % (0.0-8.0) Chloride Level 117 MEQ/L 115 MEQ/L (98-107) (98-107) Estimat Glomerular Filtration 65 ML/MIN (>89) 59 ML/MIN (>89) Rate Random Glucose 116 MG/DL (74-106) Calcium Level 8.1 MG/DL 8.3 MG/DL (8.5-10.1) (8.5-10.1) Pleural Fluid WBC 1761 /MM3 (0-10) Pleural Fluid RBC 497607 /MM3 (0-0) Sodium Level 146 MEQ/L (136-145) Imaging Last Impressions Thoracentesis Ultrasound 03/22/17 0000 Signed Impressions: Service Date/Time: Wednesday, March 22, 2017 00:00 - CONCLUSION: Uncomplicated ultrasound guided thoracentesis. Je Fletcher MD Chest X-Ray 03/22/17 0000 Signed Impressions: Service Date/Time: Wednesday, March 22, 2017 15:54 - CONCLUSION: Cardiomegaly with bibasilar densities. No pneumothorax Je Fletcher MD Chest Ultrasound 03/21/17 0000 Signed Impressions: Service Date/Time: Tuesday, March 21, 2017 10:48 - CONCLUSION: The left pleural effusion was marked. Rafa Nair MD Aorta w/Runoff CTA 03/15/17 0000 Signed Impressions: Service Date/Time: Wednesday, March 15, 2017 15:34 - CONCLUSION: 1. Inflow is patent down to the common femorals bilaterally despite regional calcification. 2. In the right lower extremity, there is some atherosclerotic irregularity at the adductor hiatus but the profunda, SFA and popliteal are patent down to the trifurcation with dominant runoff via the posterior tibial. 3. In the left lower extremity, some minimal narrowing of the proximal SFA but the common femoral, profunda, SFA and popliteal are patent down to the trifurcation with dominant runoff via the posterior tibial and peroneal. Anterior tibial occludes proximally. 4. Moderate sized bilateral pleural effusions with concomitant atelectatic changes. 5. 2.5 cm fat-containing lesion in the right lower lobe adjacent to the esophagus and posterior to the intrahepatic IVC. 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 6. Mixed density 3.7 cm mass lesion associated with the left adrenal which contains calcium and fat and may represent a myelolipoma which has previously bleed. 7. Diffuse anasarca with fluid in the deep pelvis and bilateral pleural effusions are suggesting right heart insufficiency. 8. Cortical scarring in the upper pole of the right kidney. 9. Nonspecific enhancing areas in the left and right hepatic lobes. These are overtly benign and may represent small hemangiomas. Preet Chavez MD PE at Discharge GENERAL: Well-developed well-nourished. In no acute distress. SKIN: Warm and dry. Right lower extremity wound with clean dressing. HEENT: Normocephalic. Pupils equal and round. Mucous membranes pink and moist. CARDIOVASCULAR: Regular rate and rhythm. No murmur appreciated. RESPIRATORY: No accessory muscle use. Clear to auscultation. Breath sounds equal bilaterally. GASTROINTESTINAL: Abdomen soft, non-tender, nondistended. Bowel sounds x4. MUSCULOSKELETAL: Trace bilateral lower extremity anasarca. No clubbing or cyanosis. NEUROLOGICAL: Awake and alert. No focal neurological deficits. Moves upper and lower extremities spontaneously. Normal speech. PSYCHIATRIC: Appropriate mood and affect; insight and judgment normal. Hospital Course 66-year-old female with: -C.difficile Colitis/constipation: pt with multiple episodes of diarrhea, Cdiff + on 03/13. Infectious disease consulted. Started oral vanco 125mg po q6h [id number] (stop date 03/28). Monitor BMs. Monitor BMP. Diet as tolerated. Leukocytosis resolved. Improved. Now constipation, start cautious bowel regimen. -Severe right lower extremity wound s/p dog bite previous admission, had wound vac on at home (placed 03/02), now dressing changes per plastic. Concern for wound infection on admission, no wound culture. S/p plastic eval with Dr. Moore who felt wound did not appear infected. Blood cultures NGTD. UA, cxr neg. Check prealbumin level to assess nutrition (pending). Optimize glucose control and nutrition. Consulted wound care/podiatry, Dr. Read for outpatient wound management, consideration to hyperbaric oxygen therapy. s/p OR debridement to promote wound healing. CTA aorta with runoff noted - sufficient blood flow. Cleared by Dr. Read for outpatient follow-up with him for further wound management. ID believes wound is colonized, recommends no further antibiotics for wound infection at this time. Podiatry ordered for repeat wound culture. -Type 2 DM - HbA1c 7.1. s/p diabetic education. cont levemir 4 units sq q 12 hr , to hold if not taking meals or glucose<120. SSI low novolog AC, HS, 03:00. Better controlled. -Hypernatremia, hypovolemic - improved. Na within normal limits currently. likely d/t low albumin state. Follow-up labs in the a.m. -Anemia of fe deficiency (possible underlying myelodysplastic disorder as per Dr. Schmidt's outpatient evaluation), also of chronic illness, hb improved s/p transfusion, monitor CBC, Hgb 7.7. Bleeding, transfused 2 units pRBCs, hemoglobin improved to 9.7. Follow-up CBC. -CAD, history stents, C in 2014 with stent to the LAD & RCA per Dr. Reddy -cont metoprolol 50 mg twice a day, aspirin 81 mg/day Isordil. 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 -COPD/asthma - chronic, stable. Duo nebs QID scheduled, every 2 hours when necessary, O2 via NC as needed. consulted pulmonology as well (pt does not follow with pulm). -CHF, chronic diastolic. Echo 03/13 shows preserved EF, large left pleural effusion. patient denies hx CHF. she has preserved EF. -Anasarca - suspect due to hypoalbuminemia. she has preserved EF, and no hx liver disease. Continue diuresis with Lasix with albumin. Continue Lim to monitor diuresis. -B/l plerual effusions, likely due to the anasarca: Chest x-ray 03/20 reviewed, large left pleural effusion. Continue diuresis. S/P thoracentesis 03/22 with 1.4 L, feels improved. Consulted pulmonology. -Hypertension- labile. Continue amlodipine, metoprolol, Isordil, lisinopril. Added Lasix. -Generalized weakness - continue PT. weakness exacerbated by RLE wound. even prior to admission patient was unable to navigate the 3 steps to her house. Optimally she could be DC'ed to home environment to start hyperbaric O2 as soon as possible. her has built a wheelchair ramp. -Severe malnutrition - hypoalbuminemia d/t poor PO intake, prealbumin 13, consulted dietitian for recs, appreciate input, continue supplementation. -Severe metabolic acidosis, resolved. -Acute metabolic encephalopathy - resolved. -Diabetic Peripheral neuropathy - started on neurontin. lortab prn for pain. -Nausea and vomiting -now resolved. -Sepsis due to c dif colitis, sepsis resolved. -Diabetic ketoacidosis, resolved. Was likely triggered by the colitis. -CONOR - improved -GERD-resume zantac PO. DVT Prophylaxis-Heparin 5000 SQ - held for now due to bleeding. Discharge Planning Patient was discharged home with outpatient wound care Patient is improving, DC to home with home health to follow up as OP with PCP and podiatry for hyperbaric O2 chamber treatments. Discussed also with Dr Blue from OR, repeat wound cultures reviewed and discussed with Dr Blue. Case management following for DC plan. Pt Condition on Discharge: Stable Discharge Disposition: Disch w/ Home Health Serv Discharge Time: > 30 minutes Discharge Instructions DIET: Follow Instructions for: Heart Healthy Diet Activities you can perform: Regular-No Restrictions Follow up Referrals: PCP Follow-up - 2-3 Days Podiatry - 2-3 Days with Je Read DPM [facility]/ with [facility] - 2-3 Days with [facility] New Medications: Hydrocodone-Acetaminophen ([place]) 5-325 mg Tab 1 TAB PO Q6H PRN PAIN #20 Ref 0 TAB Furosemide (Furosemide) 40 Mg Tab 40 MG PO DAILY edema #14 TAB Gabapentin (Gabapentin) 100 Mg Cap 100 MG PO TID neuropathy #60 CAP Continued Medications: Amlodipine (Norvasc) 10 Mg Tab 10 MG PO DAILY Blood Pressure Management #30 Ref 0 TAB Aspirin (Aspirin) 81 Mg Chew 81 MG CHEW DAILY Ref 0 TAB Cyanocobalamin (B-12) 2,500 Mcg Subl 2500 MCG PO DAILY Nutritional Supplement Ref 0 TAB.SL Folic Acid (Folic Acid) 800 Mcg Tab 1600 MCG PO DAILY Nutritional Supplement Ref 0 TAB Hydrocodone-Acetaminophen (Hydrocodone-Acetaminophen) 5-325 mg Tab 1 TAB PO Q6H PRN PAIN #10 Ref 0 TAB Insulin Aspart Inj (Novolog Inj) 1,000 Unit/10 Ml Vial Unknown Dose SQ ACHS Sliding Scale as directed. Blood Sugar Management #10 Ref 0 ML Insulin Detemir Inj (Levemir Inj) 1,000 unit/ 10 ML Vial 6 UNITS SQ DAILY Blood Sugar Management #30 Ref 0 INJECTION Isosorbide Mononitrate ER (Isosorbide Mononitrate ER) 30 Mg Abbey 30 MG PO DAILY Prevent Chest Pain #30 Ref 0 TAB Levofloxacin (Levofloxacin) 500 Mg Tab 500 MG PO DAILY Infection #7 Ref 0 TAB Lisinopril (Lisinopril) 20 Mg Tab 20 MG PO DAILY #30 Ref 0 TAB Metoprolol Tartrate (Metoprolol Tartrate) 50 Mg Tab 50 MG PO BID #60 Ref 0 TAB Nitroglycerin SL (Nitroglycerin SL) 0.4 Mg Subl 0.4 MG SL DIRECTED ONE TABLET UNDER THE TONGUE NEEDED FOR CHEST PAIN, MAY REPEAT EVERY FIVE MINUTES FOR A TOTAL OF 3 DOSES OR CALL 911 IF NO RELIEF PRN CHEST PAIN #100 Ref 0 TAB.SL Prasugrel (Effient) 10 Mg Tab 10 MG PO DAILY Blood Clot Prevention #30 Ref 0 TAB Pravastatin (Pravastatin) 40 Mg Tab 40 MG PO DAILY Cholesterol Management #30 Ref 0 TAB Ranitidine (Ranitidine) 150 Mg Cap 150 MG PO DAILY PRN REFLUX #30 Ref 0 CAP Sennosides-Docusate Sodium (Jocelyn-Colace) 8.6-50 Mg Tab 2 TAB PO DAILY Constipation #60 Ref 0 TAB Spironolactone (Spironolactone) 25 Mg Tab 25 MG PO DAILY #30 Ref 0 TAB Zinc Gluconate (Zinc) 50 Mg Tab 50 MG PO DAILY Lay Camacho MD Mar 23, 2017 12:25
--- NOTE | 2017-03-23 12:31 | HHI.FF ---
Face to Face Verification Diagnosis: (1) Dog bite of multiple sites of right lower extremity (2) Diabetes mellitus with peripheral vascular disease (3) Atherosclerosis of right lower extremity with ulceration (4) Pleural effusion, left (5) Clostridium difficile colitis (6) Nausea & vomiting (7) Lactic acid acidosis (8) Metabolic acidosis (9) CAD (coronary artery disease) (10) DKA (diabetic ketoacidoses) (11) Anemia, iron deficiency (12) HTN (hypertension) Physical Therapy Order: Evaluate and Treat Home Health Nursing Order: Medical education Signs/symptoms of disease process Oxygen administration education Wound care and dressing changes Nursing assessment with vital signs I have seen patient Brinda Maynard on 03/23/17. My clinical findings support the need for the requested home health care services because: Ltd mobility - disease progression Patient has SOB Deconditioned w/ increased weakness I certify that my clinical findings support that this patient is homebound because: Post-op weakness Unsteady gait/balance Lay Camacho MD Mar 23, 2017 12:31
[2017-03-23] MEDS ORDERED: FURO40TA PO (12:34)
[2017-03-23] MEDS ORDERED: NORC5TAB PO (12:34)
[2017-03-23] MEDS ORDERED: GABA100C4 PO (12:34)
--- NOTE | 2017-03-23 15:06 | PD.CARD.PN ---
Subjective Subjective Remarks No CP or SOB, feels much better after thoracentesis Objective Medications Current Medications Medications (Trade) Dose Ordered Sig/Marie Route Start Time Stop Time Status Last Admin (Sodium Bicarbonate 8.4% Inj/NS 1000 ml Inj) 1,000 ml @ 0 mls/hr Q0M IV 03/11/17 10:39 03/11/17 18:36 (NS Flush) 2 ml UNSCH PRN IV FLUSH 03/11/17 11:30 (NS Flush) 2 ml BID IV FLUSH 03/11/17 21:00 03/23/17 08:24 (Tylenol) 650 mg Q6H PRN PO 03/11/17 11:30 03/12/17 22:29 (Zofran Inj) 4 mg Q6H PRN IV 03/11/17 11:30 03/14/17 21:38 (Dulcolax Supp) 10 mg DAILY PRN RECTAL 03/11/17 11:30 (Heparin Inj) 5,000 units Q8H SQ 03/11/17 13:00 Hold 03/16/17 04:13 Miscellaneous Information 1 Q361D XX 03/11/17 11:30 03/11/17 11:30 (Chlorhexidine 2% Cloth) Taper DAILY@04 TOP 03/12/17 04:00 03/08/18 03:59 03/12/17 03:03 (Chlorhexidine 2% Cloth) 3 pack UNSCH PRN TOP 03/11/17 11:30 (Levemir Inj) 4 units Q12HR SQ 03/12/17 09:00 03/23/17 08:24 (Norvasc) 10 mg DAILY PO 03/12/17 09:45 03/23/17 08:22 (Aspirin Chew) 81 mg DAILY CHEW 03/12/17 09:45 03/23/17 08:23 (Imdur) 30 mg DAILY PO 03/12/17 09:45 03/23/17 08:22 (Lopressor) 50 mg BID PO 03/12/17 09:45 03/23/17 08:23 (Pravachol) 40 mg DAILY PO 03/12/17 09:45 03/23/17 08:23 ([place]akin'S 0.25% Soln) 500 ml BID TOPICAL 03/12/17 21:00 03/22/17 21:44 (D50w (Vial) Inj) 25 ml UNSCH PRN IV PUSH 03/13/17 17:45 (Glucagon Inj) 1 mg UNSCH PRN OTHER 03/13/17 17:45 (Reglan Inj) 5 mg TIDAC IV PUSH 03/14/17 08:00 03/23/17 11:43 (Neurontin) 100 mg TID PO 03/14/17 09:00 03/23/17 11:44 ([place] 5-325 Mg) 1 tab Q4H PRN PO 03/13/17 21:00 ([place] 7.5-325 Mg) 1 tab Q4H PRN PO 03/13/17 21:00 03/23/17 08:23 (Morphine Inj) 2 mg Q3H PRN IV PUSH 03/13/17 21:00 03/14/17 04:17 (VANCOMYCIN for oral use only) 125 mg QID PO 03/14/17 13:00 03/28/17 12:59 03/23/17 11:43 (Prinivil) 20 mg DAILY PO 03/16/17 21:00 03/23/17 08:23 (Pepcid) 20 mg DAILY PO 03/16/17 09:00 03/23/17 08:23 (NS Flush) 2 ml UNSCH PRN IV FLUSH 03/16/17 17:00 (NS Flush) 2 ml BID IV FLUSH 03/16/17 21:00 03/23/17 08:24 (Narcan Inj) 0.4 mg UNSCH PRN IV 03/16/17 17:00 (Colace) 100 mg BID PO 03/20/17 13:15 03/23/17 08:23 (Milk Of Magnesia Liq) 30 ml DAILY PRN PO 03/20/17 13:15 (Lasix) 40 mg DAILY PO 03/21/17 09:00 03/23/17 08:23 (Albumin 25% Inj) 25 gm DAILY IV 03/21/17 09:00 03/23/17 08:22 Vital Signs / I&O Vital Signs Date Time Temp Pulse Resp B/P Pulse Ox O2 Delivery O2 Flow Rate FiO2 03/23/17 12:00 98.4 69 18 114/65 92 03/23/17 12:00 98.4 69 18 114/65 92 03/23/17 08:30 64 03/23/17 08:00 91 03/23/17 08:00 98.7 63 20 173/74 96 03/23/17 07:58 94 Nasal Cannula 2.00 03/23/17 03:42 98.5 65 18 150/68 95 03/22/17 23:50 98.5 68 18 143/65 95 03/22/17 21:00 96 Nasal Cannula 3.00 03/22/17 20:04 98.5 71 18 159/69 95 03/22/17 16:36 74 18 174/68 92 03/22/17 16:21 98.4 71 19 161/79 91 03/22/17 16:00 97.9 73 16 162/68 91 03/22/17 15:10 97.9 74 14 146/71 92 I/O 03/22/17 03/22/17 03/22/17 03/23/17 03/23/17 03/23/17 07:00 15:00 23:00 07:00 15:00 23:00 Intake Total 480 ml 480 ml 480 ml 240 ml Output Total 350 ml 1000 ml 350 ml 200 ml Balance 130 ml -520 ml 130 ml 40 ml Intake Oral 480 ml 480 ml 480 ml 240 ml Output Urine Total 350 ml 1000 ml 350 ml 200 ml # Bowel Movements 0 0 0 0 Physical Exam GENERAL: In NAD SKIN: Warm and dry. HEAD: Normocephalic. EYES: No scleral icterus. No injection or drainage. NECK: Supple, trachea midline. No JVD or lymphadenopathy. CARDIOVASCULAR: Regular rate and rhythm without murmurs, gallops, or rubs. RESPIRATORY: Breath sounds equal bilaterally. No accessory muscle use. GASTROINTESTINAL: Abdomen soft, non-tender, nondistended. MUSCULOSKELETAL: No cyanosis, or edema. RLE dressing intact Laboratory Laboratory Tests Test 03/23/17 06:30 White Blood Count 6.9 TH/MM3 Red Blood Count 2.61 MIL/MM3 Hemoglobin 7.6 GM/DL Hematocrit 23.1 % Mean Corpuscular Volume 88.4 FL Mean Corpuscular Hemoglobin 29.0 PG Mean Corpuscular Hemoglobin 32.8 % Concent Red Cell Distribution Width 15.4 % Platelet Count 240 TH/MM3 Mean Platelet Volume 8.2 FL Neutrophils (%) (Auto) 75.7 % Lymphocytes (%) (Auto) 14.0 % Monocytes (%) (Auto) 7.4 % Eosinophils (%) (Auto) 2.3 % Basophils (%) (Auto) 0.6 % Neutrophils # (Auto) 5.2 TH/MM3 Lymphocytes # (Auto) 1.0 TH/MM3 Monocytes # (Auto) 0.5 TH/MM3 Eosinophils # (Auto) 0.2 TH/MM3 Basophils # (Auto) 0.0 TH/MM3 CBC Comment DIFF FINAL Differential Comment Sodium Level 146 MEQ/L Potassium Level 3.8 MEQ/L Chloride Level 115 MEQ/L Carbon Dioxide Level 25.6 MEQ/L Anion Gap 5 MEQ/L Blood Urea Nitrogen 14 MG/DL Creatinine 0.95 MG/DL Estimat Glomerular Filtration 59 ML/MIN Rate Random Glucose 92 MG/DL Calcium Level 8.3 MG/DL Imaging Last Impressions Thoracentesis Ultrasound 03/22/17 0000 Signed Impressions: Service Date/Time: Wednesday, March 22, 2017 00:00 - CONCLUSION: Uncomplicated ultrasound guided thoracentesis. Je Fletcher MD Chest X-Ray 03/22/17 0000 Signed Impressions: Service Date/Time: Wednesday, March 22, 2017 15:54 - CONCLUSION: Cardiomegaly with bibasilar densities. No pneumothorax Je Fletcher MD Chest Ultrasound 03/21/17 0000 Signed Impressions: Service Date/Time: Tuesday, March 21, 2017 10:48 - CONCLUSION: The left pleural effusion was marked. Rafa Nair MD Aorta w/Runoff CTA 03/15/17 0000 Signed Impressions: Service Date/Time: Wednesday, March 15, 2017 15:34 - CONCLUSION: 1. Inflow is patent down to the common femorals bilaterally despite regional calcification. 2. In the right lower extremity, there is some atherosclerotic irregularity at the adductor hiatus but the profunda, SFA and popliteal are patent down to the trifurcation with dominant runoff via the posterior tibial. 3. In the left lower extremity, some minimal narrowing of the proximal SFA but the common femoral, profunda, SFA and popliteal are patent down to the trifurcation with dominant runoff via the posterior tibial and peroneal. Anterior tibial occludes proximally. 4. Moderate sized bilateral pleural effusions with concomitant atelectatic changes. 5. 2.5 cm fat-containing lesion in the right lower lobe adjacent to the esophagus and posterior to the intrahepatic IVC. 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 6. Mixed density 3.7 cm mass lesion associated with the left adrenal which contains calcium and fat and may represent a myelolipoma which has previously bleed. 7. Diffuse anasarca with fluid in the deep pelvis and bilateral pleural effusions are suggesting right heart insufficiency. 8. Cortical scarring in the upper pole of the right kidney. 9. Nonspecific enhancing areas in the left and right hepatic lobes. These are overtly benign and may represent small hemangiomas. Preet Chavez MD Assessment and Plan Problem List: (1) CAD (coronary artery disease) (2) IDDM (insulin dependent diabetes mellitus) (3) Hypertension (4) Acute kidney insufficiency (5) Clostridium difficile colitis (6) Dog bite of multiple sites of right lower extremity Assessment and Plan Continue monitoring on tele. Recommend to resume platelet inhibitors (stop Effient and use clopidogrel, continue baby ASA) once OK with surgery and bleeding risk is minimal. Continue tx for angina and aggressive risk factor modification. Continue antibiotics for LE infection. Cont therapy for COPD as per Dr. Ward. SOB markedly improve after thoracentesis. Increase activity. Problem Qualifiers (1) CAD (coronary artery disease): Qualified Code: I25.10 - Coronary artery disease involving [place] coronary artery of [place] heart without angina pectoris Dunia Reddy MD Mar 23, 2017 15:06
== END 2017-03-23 14:54 | disposition home health service (06) | DRG 853 ==
LOC: NEPE 08:55 → NEDA 10:48 → HIMN 13:50 → N04A 03-12 22:52
PROVIDERS: ADMIT Anesthesiology; ATTEND Hospitalist
PROC: 05HN33Z Insertion of Infusion Device into Left Internal Jugular Vein, Percutaneous Approach (ICD-10-PCS; 2017-03-11)
PROC: 0JDN0ZZ Extraction of Right Lower Leg Subcutaneous Tissue and Fascia, Open Approach (ICD-10-PCS; principal; 2017-03-16 16:24)
PROC: 30233N1 Transfusion of Nonautologous Red Blood Cells into Peripheral Vein, Percutaneous Approach (ICD-10-PCS; 2017-03-17)
PROC: 0W9B3ZZ Drainage of Left Pleural Cavity, Percutaneous Approach (ICD-10-PCS; 2017-03-22)
DX: A41.9 Sepsis, unspecified organism (principal); E43 Unspecified severe protein-calorie malnutrition; J96.90 Respiratory failure, unspecified, unspecified whether with hypoxia or hypercapnia; G93.41 Metabolic encephalopathy; N17.9 Acute kidney failure, unspecified; J90 Pleural effusion, not elsewhere classified; E13.10 Other specified diabetes mellitus with ketoacidosis without coma; E86.0 Dehydration; I50.32 Chronic diastolic (congestive) heart failure; E87.0 Hyperosmolality and hypernatremia; A04.7 Enterocolitis due to Clostridium difficile; L97.213 Non-pressure chronic ulcer of right calf with necrosis of muscle; I25.119 Atherosclerotic heart disease of native coronary artery with unspecified angina pectoris; I70.232 Atherosclerosis of native arteries of right leg with ulceration of calf; D50.9 Iron deficiency anemia, unspecified; J44.9 Chronic obstructive pulmonary disease, unspecified; K21.9 Gastro-esophageal reflux disease without esophagitis; R53.1 Weakness; E11.51 Type 2 diabetes mellitus with diabetic peripheral angiopathy without gangrene; L08.9 Local infection of the skin and subcutaneous tissue, unspecified; J45.909 Unspecified asthma, uncomplicated; Z16.24 Resistance to multiple antibiotics; B96.20 Unspecified Escherichia coli [E. coli] as the cause of diseases classified elsewhere; E11.42 Type 2 diabetes mellitus with diabetic polyneuropathy; R11.2 Nausea with vomiting, unspecified; E03.9 Hypothyroidism, unspecified; R60.1 Generalized edema; E86.1 Hypovolemia; I11.0 Hypertensive heart disease with heart failure; M19.90 Unspecified osteoarthritis, unspecified site; R68.0 Hypothermia, not associated with low environmental temperature; K44.9 Diaphragmatic hernia without obstruction or gangrene; K59.00 Constipation, unspecified; Z79.4 Long term (current) use of insulin; Z95.5 Presence of coronary angioplasty implant and graft; Z68.33 Body mass index [BMI] 33.0-33.9, adult; Z87.891 Personal history of nicotine dependence; I25.2 Old myocardial infarction; S81.851D Open bite, right lower leg, subsequent encounter; W54.0XXD Bitten by dog, subsequent encounter; Z88.5 Allergy status to narcotic agent; Z79.82 Long term (current) use of aspirin
CPT/HCPCS: 32555; 36430; 36556; 36600; 51702; 71010; 71020; 75635; 76604; 80048; 80053; 80202; 81001; 82010; 82150; 82805; 82945; 82948; 83036; 83605; 83615; 83735; 84100; 84134; 84145; 84157; 85014; 85018; 85025; 85027; 85610; 86403; 86850; 86900; 86901; 86920; 87040; 87070; 87077; 87186; 87205; 87493; 87641; 89051; 93005; 93306; 94150; 94640; 94664; 96374; 99292; C1729; C9113; J0131; J1644; J1815; J1817; J1940; J2185; J2270; J2405; J2543; J2765; J2997; J3010; J3370; J3480; J7030; J7042; J7050; P9016; P9047; Q9967

== ENCOUNTER 2017-04-07 10:45 | Emergency (ER) | payer MEDICARE, BC ==
[~2017-04-07] VITALS: Ht 162.6 cm; Wt 80.0 kg
[~2017-04-07 10:45] MED LIST changes: +FURO40TA PO; +GABA100C4 PO; +NORC5TAB PO
[2017-04-07 11:03] VITALS: BP 150/69; PULSE 67; RESP 18; TEMP 98.7; O2SAT 92
--- NOTE | 2017-04-07 11:10 | PD ---
HPI Chief Complaint: fall Time Seen by Provider: 11:04 Travel History International Travel<30 days: No Contact w/Intl Traveler<30days: No Traveled to known affect area: No History of Present Illness HPI 66-year-old female patient from rehabilitation facility, presents to the ER today because she was walking with her walker last night and states that the walker tipped over and she fell hitting the back of her head. She denies any loss of consciousness but has a posterior scalp hematoma. She also complains of pain in the tailbone area. She states it hurts with movements. She denies any other issues or injuries. She was able to get up on her own and get herself to the stretcher. She complains of a headache currently with no nausea or vomiting. She was brought in from intermediate for further evaluation. Modifying Factors: None Associated Signs & Symptoms: Trip and fall at facility. Scalp hematoma. Tailbone pain. Risk Factors: Elderly PFSH Past Medical History Hx Anticoagulant Therapy: Yes Anemia: Yes (iron deficiency) Arthritis: Yes Asthma: Yes Heart Rhythm Problems: No Cancer: No Cardiovascular Problems: Yes (htn on med, Hx IN with stents) High Cholesterol: No Chest Pain: Yes Congestive Heart Failure: Yes COPD: Yes Cerebrovascular Accident: No Coronary Artery Disease: Yes Diabetes: Yes (type 1) Diminished Hearing: No Endocrine: No Gastrointestinal Disorders: No GERD: No Genitourinary: No Headaches: No Hepatitis: No Hiatal Hernia: Yes Hypertension: Yes Immune Disorder: No Implanted Vascular Access Dvce: No Kidney Stones: No Musculoskeletal: Yes (ARTHRITIS) Neurologic: Yes (LAMINECTOMY,SIATICA, NEUROPATHY) Psychiatric: No Reproductive: No Respiratory: Yes (copd) Immunizations Current: No Migraines: Yes Myocardial Infarction: Yes (STENTS X 2) Renal Failure: No Seizures: No Sleep Apnea: No Thyroid Disease: No Ulcer: No Menopausal: Yes : 1 Para: 1 Miscarriage: 0 Past Surgical History Abdominal Surgery: Yes (appy) AICD: No Appendectomy: Yes Body Medical Devices: CARDIAC STENTS Cardiac Surgery: No Section: Yes Ear Surgery: No Endocrine Surgery: No Eye Surgery: No Genitourinary Surgery: No Gynecologic Surgery: Yes (C-SECT., HYSTERECTOMY) Hysterectomy: Yes Joint Replacement: No Neurologic Surgery: No Oral Surgery: Yes (TONSILS) Pacemaker: No Thoracic Surgery: No Tonsillectomy: Yes (ADENOIDS) Other Surgery: Yes (LEFT WRIST GANGLION CYST) Social History Alcohol Use: No Tobacco Use: No (QUIT 2001) Substance Use: No Allergies-Medications (Allergen,Severity, Reaction): Coded Allergies: Darvon (Verified Allergy, Mild, RASH, 03/11/17) *MDRO Multi-Drug Resistant Organism (Verified Adverse Reaction, Unknown, ) 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 Reported Meds & Prescriptions Reported Meds & Active Scripts Active [place] (Hydrocodone-Acetaminophen) 5-325 mg Tab 1 Tab PO Q6H PRN Gabapentin 100 Mg Cap 100 Mg PO TID Furosemide 40 Mg Tab 40 Mg PO DAILY Hydrocodone-Acetaminophen 5-325 mg Tab 1 Tab PO Q6H PRN Levofloxacin 500 Mg Tab 500 Mg PO DAILY Levemir Inj (Insulin Detemir) 1,000 unit/ 10 ML Vial 6 Units SQ DAILY Norvasc (Amlodipine Besylate) 10 Mg Tab 10 Mg PO DAILY Reported Zinc (Zinc Gluconate) 50 Mg Tab 50 Mg PO DAILY B-12 (Cyanocobalamin) 2,500 Mcg Subl 2,500 Mcg PO DAILY Nitroglycerin SL (Nitroglycerin) 0.4 Mg Subl 0.4 Mg SL DIRECTED PRN ONE TABLET UNDER THE TONGUE NEEDED FOR CHEST PAIN, MAY REPEAT EVERY FIVE MINUTES FOR A TOTAL OF 3 DOSES OR CALL 911 IF NO RELIEF Isosorbide Mononitrate ER (Isosorbide Mononitrate) 30 Mg Abbey 30 Mg PO DAILY Spironolactone 25 Mg Tab 25 Mg PO DAILY Pravastatin 40 Mg Tab 40 Mg PO DAILY Ranitidine (Ranitidine HCl) 150 Mg Cap 150 Mg PO DAILY PRN Jocelyn-Colace (Sennosides-Docusate Sodium) 8.6-50 Mg Tab 2 Tab PO DAILY Novolog Inj (Insulin Aspart) 1,000 Unit/10 Ml Vial Unknown Dose SQ ACHS Sliding Scale as directed. Metoprolol Tartrate 50 Mg Tab 50 Mg PO BID Lisinopril 20 Mg Tab 20 Mg PO DAILY Folic Acid 800 Mcg Tab 1,600 Mcg PO DAILY Effient (Prasugrel) 10 Mg Tab 10 Mg PO DAILY Aspirin 81 Mg Chew 81 Mg CHEW DAILY Review of Systems Except as stated in HPI: all other systems reviewed are Neg Physical Exam Narrative GENERAL: Well-developed pleasant elderly white female patient currently in mild distress. Awake and oriented 3. SKIN: Focused skin assessment warm/dry. HEAD: Palpable posterior scalp hematoma with no underlying laceration. Normocephalic. EYES: Pupils equal and round. No scleral icterus. No injection or drainage. ENT: No nasal bleeding or discharge. Mucous membranes pink and moist. NECK: Trachea midline. No JVD. C-collar applied in the ER. No midline C-spine tenderness. CARDIOVASCULAR: Regular rate and rhythm. No murmur appreciated. RESPIRATORY: No accessory muscle use. Clear to auscultation. Breath sounds equal bilaterally. GASTROINTESTINAL: Abdomen soft, non-tender, nondistended. Hepatic and splenic margins not palpable. Pelvis: Stable and nontender to palpation. MUSCULOSKELETAL: No obvious deformities. No clubbing. No cyanosis. No edema. EXTREMITIES: No clubbing, cyanosis, or edema. No joint tenderness, effusion, or edema noted. Right del cid poorly healing wound which is chronic, healing, clean- based with no significant drainage. NEUROLOGICAL: Awake and alert. No obvious cranial nerve deficits. Motor grossly within normal limits. Normal speech. PSYCHIATRIC: Appropriate mood and affect; insight and judgment normal. Data Data Last Documented VS Vital Signs Date Time Temp Pulse Resp B/P Pulse Ox O2 Delivery O2 Flow Rate FiO2 04/07/17 11:12 95 Nasal Cannula 2 04/07/17 11:12 98.7 76 18 150/69 Orders Basic Metabolic Panel (Bmp) (04/07/17 11:04) Complete Blood Count With Diff (04/07/17 11:04) Act Partial Throm Time (Ptt) (04/07/17 11:04) Prothrombin Time / Inr (Pt) (04/07/17 11:04) Ct Brain W/O Iv Contrast(Rout) (04/07/17 11:04) Ct Cerv Spine W/O Contrast (04/07/17 11:04) Blood Glucose (04/07/17 11:04) Ecg Monitoring (04/07/17 11:04) Iv Access Insert/Monitor (04/07/17 11:04) Oximetry (04/07/17 11:04) Sodium Chloride 0.9% Flush (Ns Flush) (04/07/17 11:15) Pelvis, Ap Only (Routine) (04/07/17 11:04) Apply Cervical Collar (04/07/17 11:04) Labs Laboratory Tests Test 04/07/17 11:23 White Blood Count 5.9 TH/MM3 Red Blood Count 3.41 MIL/MM3 Hemoglobin 9.8 GM/DL Hematocrit 29.5 % Mean Corpuscular Volume 86.7 FL Mean Corpuscular Hemoglobin 28.7 PG Mean Corpuscular Hemoglobin 33.1 % Concent Red Cell Distribution Width 16.4 % Platelet Count 348 TH/MM3 Mean Platelet Volume 8.6 FL Neutrophils (%) (Auto) 63.8 % Lymphocytes (%) (Auto) 21.4 % Monocytes (%) (Auto) 9.7 % Eosinophils (%) (Auto) 4.6 % Basophils (%) (Auto) 0.5 % Neutrophils # (Auto) 3.7 TH/MM3 Lymphocytes # (Auto) 1.3 TH/MM3 Monocytes # (Auto) 0.6 TH/MM3 Eosinophils # (Auto) 0.3 TH/MM3 Basophils # (Auto) 0.0 TH/MM3 CBC Comment DIFF FINAL Differential Comment Prothrombin Time 10.3 SEC Prothromb Time International 0.9 RATIO Ratio Activated Partial 24.5 SEC Thromboplast Time Sodium Level 143 MEQ/L Potassium Level 3.9 MEQ/L Chloride Level 110 MEQ/L Carbon Dioxide Level 26.7 MEQ/L Anion Gap 6 MEQ/L Blood Urea Nitrogen 41 MG/DL Creatinine 1.44 MG/DL Estimat Glomerular Filtration 37 ML/MIN Rate Random Glucose 57 MG/DL Calcium Level 8.9 MG/DL [facility] Medical Decision Making Medical Screen Exam Complete: Yes Emergency Medical Condition: Yes Medical Record Reviewed: Yes Interpretation(s) Laboratory Tests Test 04/07/17 11:23 Red Blood Count 3.41 MIL/MM3 (4.00-5.30) Hemoglobin 9.8 GM/DL (11.6-15.3) Hematocrit 29.5 % (35.0-46.0) Monocytes (%) (Auto) 9.7 % (0.0-8.0) Eosinophils (%) (Auto) 4.6 % (0.0-4.0) Chloride Level 110 MEQ/L (98-107) Blood Urea Nitrogen 41 MG/DL (7-18) Creatinine 1.44 MG/DL (0.50-1.00) Estimat Glomerular Filtration 37 ML/MIN (>89) Rate Random Glucose 57 MG/DL (74-106) Last 24 hours Impressions Pelvis X-Ray 04/07/17 1104 Signed Impressions: Service Date/Time: Friday, April 07, 2017 11:26 - CONCLUSION: No acute fracture. Je Fletcher MD Head CT 04/07/17 1104 Signed Impressions: Service Date/Time: Friday, April 07, 2017 11:30 - CONCLUSION: No acute intracranial disease. Je Fletcher MD Cervical Spine CT 04/07/17 1104 Signed Impressions: Service Date/Time: Friday, April 07, 2017 11:30 - CONCLUSION: 1. Degenerative changes without fracture. 2. Large left pleural effusion. Je Fletcher MD Differential Diagnosis Fallrule out intracranial injuries versus pelvic injuries versus C-spine injuries Narrative Course This appears to be a trip and fall. CTs of the brain and C-spine did not show any signs of acute injuries. Pelvis x-rays were unremarkable for acute injuries. Patient had been ambulatory at the facility after the fall. At this point, she is not complaining of any other issues. She does have an incidental finding on CAT scan of a left pleural effusion which is a problem that she had previously as well and she was released with this issue. Patient is not currently complaining of shortness of breath and does not appear to be symptomatic at this time. This appears to be a more chronic issue. My plan would be to release her with follow-up to primary care physician at the home. Return for any new issues as needed. The plan has been discussed with her and she states understanding. Diagnosis Primary Impression: Abrasion of left arm Additional Impression: Scalp contusion Disposition: 03 DISCHARGE TO SNF Condition: Stable Shai Parker MD April 07, 2017 11:10
[2017-04-07 11:12] VITALS: BP 150/69; PULSE 76; RESP 18; TEMP 98.7; O2SAT 95
[2017-04-07] MEDS ORDERED: SODIUM CHLORIDE 0.9% FLUSH 10 ML FLUSH IVF PRN (11:15)
[2017-04-07 11:34] LABS: AUTOMATED NEUTROPHIL # 3.7 TH/MM3 (1.8-7.7); BASOPHIL % 0.5 % (0.0-2.0); EOSINOPHIL # 0.3 TH/MM3 (0-0.4); EOSINOPHIL % 4.6 % (0.0-4.0); HEMATOCRIT 29.5 % (35.0-46.0); HEMO FLAGS DIFF FINAL; LYMPH % 21.4 % (9.0-44.0); LYMPHOCYTE # 1.3 TH/MM3 (1.0-4.8); MEAN CELL VOLUME 86.7 FL (80.0-100.0); MEAN CORPUSCULAR HEMOGLOBIN 28.7 PG (27.0-34.0); MEAN CORPUSCULAR HGB CONC 33.1 % (32.0-36.0); MONO % 9.7 % (0.0-8.0); NEUT % 63.8 % (16.0-70.0); PLATELET COUNT 348 TH/MM3 (150-450); RED BLOOD COUNT 3.41 MIL/MM3 (4.00-5.30); RED CELL DISTRIBUTION WIDTH 16.4 % (11.6-17.2); WHITE BLOOD COUNT 5.9 TH/MM3 (4.0-11.0)
--- NOTE | 2017-04-07 11:34 | RADRPT ---
EXAM DATE/TIME: 04/07/2017 11:26 [facility] COMPARISON: No previous studies available for comparison. INDICATIONS : Fell last nite, pain sacral area. MEDICAL HISTORY : None. SURGICAL HISTORY : Hysterectomy. Laminectomy ENCOUNTER: Initial ACUITY: 1 day PAIN SCORE: 8/10 LOCATION: Sacral area. FINDINGS: A single frontal view of the pelvis demonstrates no evidence of fracture. Scattered degenerative laurence nges. Osteopenia. Vascular calcifications. The bony pelvic ring is intact. Bony mineralization is no rmal. The soft tissues are intact. CONCLUSION: No acute fracture. Je Fletcher MD on April 07, 2017 at 11:31 Board Certified Radiologist. This report was verified electronically.
[2017-04-07 11:45] LABS: APTT (PATIENT) 24.5 SEC (24.3-30.1); INTERNATIONAL NORMALIZED RATIO 0.9 RATIO; PROTHROMBIN TIME - PATIENT 10.3 SEC (9.8-11.6)
--- NOTE | 2017-04-07 11:54 | RADRPT ---
EXAM DATE/TIME: 04/07/2017 11:30 [facility] COMPARISON: CT BRAIN W/O CONTRAST, December 02, 2016, 17:19. INDICATIONS : Fall last night hitting back of head. RADIATION DOSE: 56.65 CTDIvol (mGy) MEDICAL HISTORY : Cardiovascular disease. Congestive heart failure. Diabetes SURGICAL HISTORY : Appendectomy. Hysterectomy. ENCOUNTER: Initial ACUITY: 1 day PAIN SCALE: 8/10 LOCATION: cranial TECHNIQUE: Multiple contiguous axial images were obtained of the head. Using automated exposure control and adj ustment of the mA and/or kV according to patient size, radiation dose was kept as low as reasonably a chievable to obtain optimal diagnostic quality images. FINDINGS: CEREBRUM: The ventricles are normal for age. No evidence of midline shift, mass lesion, hemorrhage or acute in farction. No extra-axial fluid collections are seen. POSTERIOR FOSSA: The cerebellum and brainstem are intact. The 4th ventricle is midline. The cerebellopontine angle i s unremarkable. EXTRACRANIAL: The visualized portion of the orbits is intact. SKULL: The calvaria is intact. No evidence of skull fracture. CONCLUSION: No acute intracranial disease. Je Fletcher MD on April 07, 2017 at 11:51 Board Certified Radiologist. This report was verified electronically.
[2017-04-07 11:57] LABS: BICARBONATE 26.7 MEQ/L (21.0-32.0); POTASSIUM 3.9 MEQ/L (3.5-5.1)
--- NOTE | 2017-04-07 12:19 | RADRPT ---
EXAM DATE/TIME: 04/07/2017 11:30 [facility] COMPARISON: CHEST EXPIRATION ONLY, March 22, 2017, 15:54. INDICATIONS : Fall hit back of head now having pain. RADIATION DOSE: 30.63 CTDIvol (mGy) MEDICAL HISTORY : Cardiovascular disease. Congestive heart failure. Diabetes SURGICAL HISTORY : Appendectomy. Hysterectomy. ENCOUNTER: Initial ACUITY: 1 day PAIN SCALE: 8/10 LOCATION: neck TECHNIQUE: Volumetric scanning of the cervical spine was performed. Multiplanar reconstructions in the sagittal, coronal and oblique axial planes were performed. Using automated exposure control and adjustment o f the mA and/or kV according to patient size, radiation dose was kept as low as reasonably achievable to obtain optimal diagnostic quality images. FINDINGS: VERTEBRAE: Normal vertebral body height. Mild degenerative changes from C5-C7. ALIGNMENT: No evidence of subluxation. C2-C3: The bony spinal canal is normal in size. No evidence of disc bulge or herniation. The neural forami na are bilaterally patent. C3-C4: The bony spinal canal is normal in size. No evidence of disc bulge or herniation. The neural forami na are bilaterally patent. C4-C5: The bony spinal canal is normal in size. No evidence of disc bulge or herniation. The neural forami na are bilaterally patent. C5-C6: Small posterior disc osteophyte complex without canal stenosis. The neural foramina are bilaterally patent. C6-C7: Small posterior disc osteophyte complex without canal stenosis. The neural foramina are bilaterally p atent. C7-T1: The bony spinal canal is normal in size. No evidence of disc bulge or herniation. The neural forami na are bilaterally patent. CONCLUSION: 1. Degenerative changes without fracture. 2. Large left pleural effusion. Je Fletcher MD on April 07, 2017 at 12:08 Board Certified Radiologist. This report was verified electronically.
== END 2017-04-07 13:31 ==
LOC: NEPC 10:45 → NEDAMB 13:31
DX: S40.812A Abrasion of left upper arm, initial encounter (principal); S00.03XA Contusion of scalp, initial encounter; W01.0XXA Fall on same level from slipping, tripping and stumbling without subsequent striking against object, initial encounter; Y93.01 Activity, walking, marching and hiking; Y92.129 Unspecified place in nursing home as the place of occurrence of the external cause
CPT/HCPCS: 70450; 72125; 72170; 80048; 85025; 85610; 85730; 99284; L0120

== ENCOUNTER 2017-04-24 04:00 | Inpatient (IN) | payer MEDICARE, BC ==
[2017-04-24] VITALS (9 sets, daily range): BP systolic 135–167; BP diastolic 61–71; PULSE 53–69; RESP 18–19; TEMP 94.3–98.1; O2SAT 95–99
[~2017-04-24] VITALS: Ht 162.6 cm; Wt 113.0 kg
--- NOTE | 2017-04-24 04:41 | PD ---
HPI Chief Complaint: Diabetic Time Seen by Provider: 04:41 Travel History International Travel<30 days: No Contact w/Intl Traveler<30days: No Traveled to known affect area: No History of Present Illness HPI 66-year-old female came to the emergency room brought by EMS for altered mental status and blood sugar in the 20s. Patient received D10 by the paramedics and sugar came up to 135. I went to see her and her was there in the room and he gave additional history. He said that she was complaining of some nausea yesterday and did not want to eat much. He found her on the floor unresponsive and that's when he called 911. Patient denies of any pain anywhere. She says she has history of anemia and is being followed up by Dr. Schmidt from hematology. Her diagnosis is myelodysplastic syndrome. She has received blood transfusion in the past and the last one was in February. No history of fever or chills. She was in rehabilitation not too long ago for C. difficile colitis and a dog bite wound on her left ankle that she continues to see wound care management doctor Dr. Read. [facility] Past Medical History Narrative Medical List of her past medical, surgical, social and family history is reviewed from the nursing note. Hx Anticoagulant Therapy: Yes (ASPIRIN ) Anemia: Yes (iron deficiency) Arthritis: Yes Asthma: Yes Heart Rhythm Problems: No Cancer: No Cardiovascular Problems: Yes (htn on med, Hx OR with stents) High Cholesterol: No Chest Pain: Yes Congestive Heart Failure: Yes COPD: Yes Cerebrovascular Accident: No Coronary Artery Disease: Yes Diabetes: Yes Diminished Hearing: No Endocrine: No Gastrointestinal Disorders: No GERD: No Genitourinary: No Headaches: No Hepatitis: No Hiatal Hernia: Yes Hypertension: Yes Immune Disorder: No Implanted Vascular Access Dvce: No Kidney Stones: No Musculoskeletal: Yes (ARTHRITIS) Neurologic: Yes (LAMINECTOMY,SIATICA, NEUROPATHY) Psychiatric: No Reproductive: No Respiratory: Yes (copd) Immunizations Current: No Migraines: Yes Myocardial Infarction: Yes (STENTS X 2) Renal Failure: No Seizures: No Sleep Apnea: No Thyroid Disease: No Ulcer: No Menopausal: Yes : 1 Para: 1 Miscarriage: 0 Past Surgical History Abdominal Surgery: Yes (appy) AICD: No Appendectomy: Yes Body Medical Devices: CARDIAC STENTS Cardiac Surgery: No Section: Yes Ear Surgery: No Endocrine Surgery: No Eye Surgery: No Genitourinary Surgery: No Gynecologic Surgery: Yes (C-SECT., HYSTERECTOMY) Hysterectomy: Yes Joint Replacement: No Neurologic Surgery: No Oral Surgery: Yes (TONSILS) Pacemaker: No Thoracic Surgery: No Tonsillectomy: Yes (ADENOIDS) Other Surgery: Yes (LEFT WRIST GANGLION CYST) Social History Alcohol Use: No Tobacco Use: No (QUIT 2001) Substance Use: No Allergies-Medications (Allergen,Severity, Reaction): Coded Allergies: Darvon (Verified Allergy, Mild, RASH, 03/11/17) *MDRO Multi-Drug Resistant Organism (Verified Adverse Reaction, Unknown, ) 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 Reported Meds & Prescriptions Reported Meds & Active Scripts Active [place] (Hydrocodone-Acetaminophen) 5-325 mg Tab 1 Tab PO Q6H PRN Gabapentin 100 Mg Cap 100 Mg PO TID Furosemide 40 Mg Tab 40 Mg PO DAILY Hydrocodone-Acetaminophen 5-325 mg Tab 1 Tab PO Q6H PRN Levemir Inj (Insulin Detemir) 1,000 unit/ 10 ML Vial 6 Units SQ DAILY Norvasc (Amlodipine Besylate) 10 Mg Tab 10 Mg PO DAILY Reported Zinc (Zinc Gluconate) 50 Mg Tab 50 Mg PO DAILY Nitroglycerin SL (Nitroglycerin) 0.4 Mg Subl 0.4 Mg SL DIRECTED PRN ONE TABLET UNDER THE TONGUE NEEDED FOR CHEST PAIN, MAY REPEAT EVERY FIVE MINUTES FOR A TOTAL OF 3 DOSES OR CALL 911 IF NO RELIEF Isosorbide Mononitrate ER (Isosorbide Mononitrate) 30 Mg [place] 30 Mg PO DAILY Spironolactone 25 Mg Tab 25 Mg PO DAILY Pravastatin 40 Mg Tab 40 Mg PO DAILY Ranitidine (Ranitidine HCl) 150 Mg Cap 150 Mg PO DAILY PRN Jocelyn-Colace (Sennosides-Docusate Sodium) 8.6-50 Mg Tab 2 Tab PO DAILY Novolog Inj (Insulin Aspart) 1,000 Unit/10 Ml Vial Unknown Dose SQ ACHS Sliding Scale as directed. Metoprolol Tartrate 50 Mg Tab 50 Mg PO BID Lisinopril 20 Mg Tab 20 Mg PO DAILY Folic Acid 800 Mcg Tab 1,600 Mcg PO DAILY Effient (Prasugrel) 10 Mg Tab 10 Mg PO DAILY Aspirin 81 Mg Chew 81 Mg CHEW DAILY Narrative Medication List of her home medications reviewed from the nursing note. Review of Systems Except as stated in HPI: all other systems reviewed are Neg Physical Exam Narrative GENERAL: Lethargic but answering questions appropriately, obese SKIN: Focused skin assessment warm/dry. Pale. Large wound on the right ankle medially seems to be healing by secondary intention. No foul order or discharge. There is a small blister on the left heel that seems to have some surrounding redness. HEAD: Atraumatic. Normocephalic. EYES: Pupils equal and round. No scleral icterus. No injection or drainage. Pallor ENT: No nasal bleeding or discharge. Mucous membranes pink and moist. NECK: Trachea midline. No JVD. CARDIOVASCULAR: Regular rate and rhythm. No murmur appreciated. RESPIRATORY: No accessory muscle use. Clear to auscultation. Breath sounds equal bilaterally. GASTROINTESTINAL: Abdomen soft, non-tender, nondistended. Hepatic and splenic margins not palpable. MUSCULOSKELETAL: No obvious deformities. No clubbing. No cyanosis. No edema. NEUROLOGICAL: Awake and alert. No obvious cranial nerve deficits. Motor grossly within normal limits. Normal speech. PSYCHIATRIC: Appropriate mood and affect; insight and judgment normal. Data Data Last Documented VS Orders Electrocardiogram (04/24/17 04:53) Complete Blood Count With Diff (04/24/17 04:53) Comprehensive Metabolic Panel (04/24/17 04:53) Blood Glucose (04/24/17 04:53) Blood Glucose (04/24/17 05:23) Ecg Monitoring (04/24/17 04:53) Iv Access Insert/Monitor (04/24/17 04:53) Oximetry (04/24/17 04:53) NPO (04/24/17 04:53) Sodium Chloride 0.9% Flush (Ns Flush) (04/24/17 05:00) Type And Screen (04/24/17 04:53) Lactic Acid (04/24/17 04:53) Blood Culture (04/24/17 04:53) Sodium Chlor 0.9% 1000 Ml Inj (Ns 1000 M (04/24/17 05:00) Dextrose 5% In [place] 1000ml Inj (D5w 1000 (04/24/17 05:55) ^ Straight Catheter (5/27/17 06:02) Admit Order (Ed Use Only) (04/24/17 06:18) Labs Laboratory Tests Test 04/24/17 05:00 White Blood Count 5.2 TH/MM3 Red Blood Count 2.84 MIL/MM3 Hemoglobin 8.6 GM/DL Hematocrit 25.4 % Mean Corpuscular Volume 89.6 FL Mean Corpuscular Hemoglobin 30.2 PG Mean Corpuscular Hemoglobin 33.7 % Concent Red Cell Distribution Width 17.8 % Platelet Count 285 TH/MM3 Mean Platelet Volume 8.1 FL Neutrophils (%) (Auto) 78.4 % Lymphocytes (%) (Auto) 15.7 % Monocytes (%) (Auto) 3.8 % Eosinophils (%) (Auto) 1.5 % Basophils (%) (Auto) 0.6 % Neutrophils # (Auto) 4.1 TH/MM3 Lymphocytes # (Auto) 0.8 TH/MM3 Monocytes # (Auto) 0.2 TH/MM3 Eosinophils # (Auto) 0.1 TH/MM3 Basophils # (Auto) 0.0 TH/MM3 CBC Comment DIFF FINAL Differential Comment Sodium Level 146 MEQ/L Potassium Level 3.9 MEQ/L Chloride Level 114 MEQ/L Carbon Dioxide Level 25.0 MEQ/L Anion Gap 7 MEQ/L Blood Urea Nitrogen 27 MG/DL Creatinine 0.96 MG/DL Estimat Glomerular Filtration 58 ML/MIN Rate Random Glucose 43 MG/DL Lactic Acid Level 0.5 mmol/L Calcium Level 9.5 MG/DL Total Bilirubin 0.2 MG/DL Aspartate Amino Transf 32 U/L (AST/SGOT) Alanine Aminotransferase 27 U/L (ALT/SGPT) Alkaline Phosphatase 158 U/L Total Protein 5.7 GM/DL Albumin 2.0 GM/DL Thyroid Stimulating Hormone 0.932 uIU/ML 3rd Gen Blood Type B NEGATIVE Antibody Screen NEGATIVE Hemoglobin A1c 6.4 % MDM Medical Decision Making Medical Screen Exam Complete: Yes Emergency Medical Condition: Yes Medical Record Reviewed: Yes Interpretation(s) Twelve-lead EKG was reviewed by me. Normal sinus rhythm, normal axis, poor R- wave progression, nonspecific ST-T wave changes. Heart rate of 68 bpm. Differential Diagnosis Hypoglycemia, sepsis, electrolyte abnormality Narrative Course 5:51 AM blood test result shows anemia with hemoglobin is high enough where transfusion is not required at this point. Awaiting for the chemistry to come back. 6:20 AM blood test results are back. The sugar is critically low and she is mildly hyponatremic and hypochloremic. I have started her on D5W at 75 cc an hour as well. Her repeat core body temperature is 95.1. Patient has been admitted to the hospitalist. Critical Care Narrative Aggregate critical care time was 30 minutes. Time to perform other separately billable procedures was not included in the critical care time. My time did not include minutes spent treating any other patients simultaneously or on activities that did not directly contribute to the patient's treatment. The services I provided to this patient were to treat and/or prevent clinically significant deterioration that could result in: Sepsis, sepsis protocol I provided critical care services requiring my management, as noted below: Chart data review, documentation time, medication orders and management, vital sign assessments/reviewing monitor data, ordering and reviewing lab tests, ordering and interpreting/reviewing x-rays and diagnostic studies, care of the patient and discussion of the patient with the admitting physicians. Procedures EKG Prior to Arrival: No Diagnosis Primary Impression: Hypoglycemia Additional Impressions: Hyperthermia Dehydration Altered mental status Qualified Code: R40.0 - Somnolence Admitting Information Admitting Physician Requests: Terry Jc MD April 24, 2017 04:41
[2017-04-24] MEDS ORDERED: SODIUM CHLOR 0.9% 1000 ML INJ 1,000 ML IV ONE (05:00)
[2017-04-24] MEDS ORDERED: SODIUM CHLORIDE 0.9% FLUSH 10 ML FLUSH IVF PRN (05:00)
[2017-04-24 05:41] LABS: AUTOMATED NEUTROPHIL # 4.1 TH/MM3 (1.8-7.7); BASOPHIL % 0.6 % (0.0-2.0); EOSINOPHIL # 0.1 TH/MM3 (0-0.4); EOSINOPHIL % 1.5 % (0.0-4.0); HEMATOCRIT 25.4 % (35.0-46.0); HEMO FLAGS DIFF FINAL; LYMPH % 15.7 % (9.0-44.0); LYMPHOCYTE # 0.8 TH/MM3 (1.0-4.8); MEAN CELL VOLUME 89.6 FL (80.0-100.0); MEAN CORPUSCULAR HEMOGLOBIN 30.2 PG (27.0-34.0); MEAN CORPUSCULAR HGB CONC 33.7 % (32.0-36.0); MONO % 3.8 % (0.0-8.0); NEUT % 78.4 % (16.0-70.0); PLATELET COUNT 285 TH/MM3 (150-450); RED BLOOD COUNT 2.84 MIL/MM3 (4.00-5.30); RED CELL DISTRIBUTION WIDTH 17.8 % (11.6-17.2); WHITE BLOOD COUNT 5.2 TH/MM3 (4.0-11.0)
[2017-04-24 05:52] LABS: ANION GAP 7 MEQ/L (5-15); AST (GOT) 32 U/L (15-37); BLOOD UREA NITROGEN 27 MG/DL (7-18); CHLORIDE 114 MEQ/L (98-107); GLOMERULAR FILTRATION RATE 58 ML/MIN (>89); POTASSIUM 3.9 MEQ/L (3.5-5.1); SODIUM (NA) 146 MEQ/L (136-145)
[2017-04-24 05:54] LABS: ALKALINE PHOSPHATASE 158 U/L (45-117); ALT (GPT) 27 U/L (10-53); TOTAL BILIRUBIN ADULT 0.2 MG/DL (0.2-1.0)
[2017-04-24] MEDS ORDERED: DEXTROSE 5% IN WATE 1000ML INJ 1,000 ML IV SCH (05:55)
[2017-04-24] MEDS ORDERED: SODIUM CHLOR 0.9% 1000 ML INJ 1,000 ML IV SCH (06:37)
[2017-04-24] MEDS ORDERED: GLUCAGON 1 MG/ML VIAL OTHER PRN (06:45)
[2017-04-24] MEDS ORDERED: ONDANSETRON HCL 4 MG/2 ML VIAL IVP PRN (06:45)
[2017-04-24] MEDS ORDERED: SODIUM CHLORIDE 0.9% FLUSH 10 ML FLUSH IV FLUSH PRN (06:45)
[2017-04-24] MEDS ORDERED: DEXTROSE 50% IN WATER 50 ML VIAL(D50) IV PRN (06:45)
[2017-04-24] MEDS ORDERED: BISACODYL 10 MG SUPP RECTAL PRN (06:45)
[2017-04-24] MEDS ORDERED: MAGNESIUM HYDROXIDE SUSP 30 ML CUP PO PRN (06:45)
[2017-04-24] MEDS ORDERED: ACETAMINOPHEN 325 MG TAB PO PRN (06:45)
[2017-04-24] MEDS ORDERED: LACTULOSE SYRUP 20 GM/30 ML CUP PO PRN (06:45)
[2017-04-24] MEDS ORDERED: ACETAMINOPHEN/HYDROcodone 325 MG/5 MG TAB PO PRN (06:45)
[2017-04-24] MEDS ORDERED: SENNOSIDES 8.6 MG TAB PO PRN (06:45)
--- NOTE | 2017-04-24 07:12 | RADRPT ---
EXAM DATE/TIME: 04/24/2017 06:54 [facility] COMPARISON: CHEST PA & LAT, March 20, 2017, 21:14. CHEST SINGLE AP, March 11, 2017, 10:04. INDICATIONS : Shortness of breath. MEDICAL HISTORY : Hypertension. Chronic obstructive pulmonary disease. Congestive heart failure. SURGICAL HISTORY : Coronary artery stent. ENCOUNTER: Initial ACUITY: 1 day PAIN SCORE: Non-responsive. LOCATION: Bilateral chest FINDINGS: Portable AP view of the chest demonstrates a normal-sized cardiac silhouette. There are normal perihi lar and lower lung zone interstitial and airspace opacities. There is a small moderate size left pleu ral-based opacity and there is slight blunting of the right costophrenic sulcus. No pneumothorax is v isualized. Bones and soft tissues demonstrate no acute finding. CONCLUSION: 1. Abnormal perihilar and lower lung zone interstitial and airspace opacity. The nonspecific the andreia awilda is suggestive of pulmonary edema in the appropriate clinical setting. 2. [id number] size left pleural effusion although slightly smaller than the prior chest x-ray performed on 03/20/2017. 3. Trace right pleural fluid. Rafa Ortiz MD on April 24, 2017 at 7:09 Board Certified Radiologist. This report was verified electronically.
[2017-04-24] MEDS: DOCUSATE SODIUM 50 MG/SENNA 8.6 MG TAB PO SCH ×2 (09:50→21:00)
[2017-04-24] MEDS ORDERED: DEXT 5%-NACL 0.45% 1000 ML INJ 1,000 ML IV SCH (10:00)
[2017-04-24] MEDS: SODIUM CHLORIDE 0.9% FLUSH 10 ML FLUSH IV FLUSH SCH ×2 (10:11→21:01)
--- NOTE | 2017-04-24 11:48 | HHI.HP ---
[facility] Primary Care Physician NICHOLAS Claire Admission Diagnosis hypoglycemia, dehydration, hypothermia, altered mental status Diagnoses: Chief Complaint: Hypoglycemia Travel History International Travel<30 Days: No Contact w/Intl Traveler <30 Da: No Traveled to Known Affected Are: No History of Present Illness 66-year-old female with a past medical history of DM, COPD, HTN, CAD, CHF, GERD who presented for hypoglycemia. The patient states that she was in her normal state of health last night when she went to bed. The patient states that she woke up on the floor with the paramedics around her. She states her blood sugar was 23 at the time. She states that she was recently at rehabilitation, and had been having low sugars at night and there. She states when she woke up today she had decreased energy, was sweaty, nausea, dry heaving. She reports that she's been having normal intake. She denies any recent medication changes. She denies any fever, chills, chest pain, constipation, diarrhea. She is a little short of breath, reports a history of COPD and pleural effusions. She has a chronic right lower extremity the wound that was followed by Dr. Read, which she states is decreasing in size. Review of Systems Except as stated in HPI: all other systems reviewed are Neg Past Family Social History Past Medical History History of C. difficile status post treatment Chronic right lower extremity ulcer secondary to a dog bite Diabetes mellitus Coronary artery disease COPD Diastolic CHF Hypertension GERD Past Surgical History Appendectomy Coronary stent placement Hysterectomy Tonsillectomy and adenoidectomy Left wrist ganglion cyst removal Reported Medications Harlan (Hydrocodone-Acetaminophen) 5-325 mg Tab 1 Tab PO Q6H PRN Gabapentin 100 Mg Cap 100 Mg PO TID Furosemide 40 Mg Tab 40 Mg PO DAILY Hydrocodone-Acetaminophen 5-325 mg Tab 1 Tab PO Q6H PRN Levemir Inj (Insulin Detemir) 1,000 unit/ 10 ML Vial 6 Units SQ DAILY Norvasc (Amlodipine Besylate) 10 Mg Tab 10 Mg PO DAILY Zinc (Zinc Gluconate) 50 Mg Tab 50 Mg PO DAILY Nitroglycerin SL (Nitroglycerin) 0.4 Mg Subl 0.4 Mg SL DIRECTED PRN ONE TABLET UNDER THE TONGUE NEEDED FOR CHEST PAIN, MAY REPEAT EVERY FIVE MINUTES FOR A TOTAL OF 3 DOSES OR CALL 911 IF NO RELIEF Isosorbide Mononitrate ER (Isosorbide Mononitrate) 30 Mg Abbey 30 Mg PO DAILY Spironolactone 25 Mg Tab 25 Mg PO DAILY Pravastatin 40 Mg Tab 40 Mg PO DAILY Ranitidine (Ranitidine HCl) 150 Mg Cap 150 Mg PO DAILY PRN Jocelyn-Colace (Sennosides-Docusate Sodium) 8.6-50 Mg Tab 2 Tab PO DAILY Novolog Inj (Insulin Aspart) 1,000 Unit/10 Ml Vial Unknown Dose SQ ACHS Sliding Scale as directed. 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 Ordered Medications Current Medications Medications (Trade) Dose Ordered Sig/Marie Route Start Time Stop Time Status Last Admin (D50w (Vial) Inj) 50 ml UNSCH PRN IV 04/24/17 06:45 (Glucagon Inj) 1 mg UNSCH PRN OTHER 04/24/17 06:45 (NS Flush) 2 ml UNSCH PRN IV FLUSH 04/24/17 06:45 (NS Flush) 2 ml BID IV FLUSH 04/24/17 09:00 04/24/17 10:11 (Zofran Inj) 4 mg Q6H PRN IVP 04/24/17 06:45 (Tylenol) 650 mg Q6H PRN PO 04/24/17 06:45 (Harlan 5-325 Mg) 1 tab Q4H PRN PO 04/24/17 06:45 (Harlan 10-325 Mg) 1 tab Q4H PRN PO 04/24/17 06:45 (Jocelyn-Colace) 1 tab BID PO 04/24/17 09:00 04/24/17 09:50 (Milk Of Magnesia Liq) 30 ml Q12H PRN PO 04/24/17 06:45 (Senokot) 17.2 mg Q12H PRN PO 04/24/17 06:45 (Dulcolax Supp) 10 mg DAILY PRN RECTAL 04/24/17 06:45 Lactulose 30 ml 30 ml DAILY PRN PO 04/24/17 06:45 (Sodium Chloride 23.4% Inj/D10w Inj) 1,019.25 ml @ 5 mls/hr Q24H IV 04/24/17 13:00 (Dakin'S 0.125% Soln) 500 ml DAILY TOPICAL 04/24/17 12:00 (Aspirin Chew) 81 mg DAILY CHEW 04/25/17 09:00 (Imdur) 30 mg DAILY PO 04/25/17 09:00 (Effient) 10 mg DAILY PO 04/25/17 09:00 (Pravachol) 40 mg DAILY PO 04/25/17 09:00 Family History Mother of MS at age 87 Father at age 40 of colorectal cancer Social History Quit smoking in 2001 No alcohol use. Lives at home with her Physical Exam Vital Signs Vital Signs Date Time Temp Pulse Resp B/P Pulse Ox O2 Delivery O2 Flow Rate FiO2 04/24/17 11:30 61 18 135/62 97 Nasal Cannula 4 04/24/17 08:27 57 18 148/65 96 Nasal Cannula 4 04/24/17 06:00 95.1 69 18 142/63 97 Nasal Cannula 4 04/24/17 04:23 94.3 53 18 156/69 99 Nasal Cannula 4 Physical Exam GENERAL: Well-developed well-nourished. In no acute distress. SKIN: Warm and dry. Skin tear/fissure over the sacral area. Left heel pressure ulcer. Large open ulceration with sloughing on the right ankle; no surrounding erythema. HEENT: Normocephalic. Pupils equal and round. Mucous membranes pink and moist. CARDIOVASCULAR: Regular rate and rhythm. No murmur appreciated. RESPIRATORY: No accessory muscle use. Clear to auscultation. Breath sounds equal bilaterally. GASTROINTESTINAL: Abdomen soft, non-tender, nondistended. Bowel sounds x4. MUSCULOSKELETAL: No obvious deformities. No clubbing or cyanosis. No edema. NEUROLOGICAL: Awake and alert. No focal neurological deficits. Moves upper and lower extremities spontaneously. Normal speech. PSYCHIATRIC: Appropriate mood and affect; insight and judgment normal. Laboratory Laboratory Tests Test 04/24/17 05:00 White Blood Count 5.2 Red Blood Count 2.84 Hemoglobin 8.6 Hematocrit 25.4 Mean Corpuscular Volume 89.6 Mean Corpuscular Hemoglobin 30.2 Mean Corpuscular Hemoglobin 33.7 Concent Red Cell Distribution Width 17.8 Platelet Count 285 Mean Platelet Volume 8.1 Neutrophils (%) (Auto) 78.4 Lymphocytes (%) (Auto) 15.7 Monocytes (%) (Auto) 3.8 Eosinophils (%) (Auto) 1.5 Basophils (%) (Auto) 0.6 Neutrophils # (Auto) 4.1 Lymphocytes # (Auto) 0.8 Monocytes # (Auto) 0.2 Eosinophils # (Auto) 0.1 Basophils # (Auto) 0.0 CBC Comment DIFF FINAL Differential Comment Sodium Level 146 Potassium Level 3.9 Chloride Level 114 Carbon Dioxide Level 25.0 Anion Gap 7 Blood Urea Nitrogen 27 Creatinine 0.96 Estimat Glomerular Filtration 58 Rate Random Glucose 43 Lactic Acid Level 0.5 Calcium Level 9.5 Total Bilirubin 0.2 Aspartate Amino Transf 32 (AST/SGOT) Alanine Aminotransferase 27 (ALT/SGPT) Alkaline Phosphatase 158 Total Protein 5.7 Albumin 2.0 Blood Type B NEGATIVE Antibody Screen NEGATIVE Date/Time Procedure Status Source Growth 04/24/17 05:05 Aerobic Blood Culture Received Blood Peripheral Pending 04/24/17 05:05 Anaerobic Blood Culture Received Blood Peripheral Pending Result Diagram: 04/24/17 0500 04/24/17 0500 Imaging Last Impressions Chest X-Ray 04/24/17 0000 Signed Impressions: Service Date/Time: Monday, April 24, 2017 06:54 - CONCLUSION: 1. Abnormal perihilar and lower lung zone interstitial and airspace opacity. The nonspecific the pattern is suggestive of pulmonary edema in the appropriate clinical setting. 2. Eotpa-ih-cbtwnjmo size left pleural effusion although slightly smaller than the prior chest x-ray performed on 03/20/2017. 3. Trace right pleural fluid. Rafa Ortiz MD Assessment and Plan Assessment and Plan 66-year-old female with a past medical history of DM, COPD, HTN, CAD, CHF, GERD who presented for hypoglycemia Hypoglycemia with diabetes mellitus: With associated hypothermia. Presented with blood glucose 43. Continue D10 infusion. Hold home insulin regimen. Monitor Accu-Cheks. Check TSH, cortisol, and hemoglobin A1c. Chronic right lower extremity ulcer: Slow healing after a dog bite. Afebrile with no leukocytosis. Doesn't really look acutely infected, however would definitely benefit from continued aggressive wound care. Consult relations liaison. Wet-to-dry dressings with Dakin's for now. Pleural effusion: Chest x-ray with bilateral pulmonary edema and pleural effusions, patient has history of the same. Progressive thought to be secondary to low protein state and possible diastolic heart failure. Supplemental oxygen as needed. Caution with IVF. DVT prophylaxis: Heparin Code Status Full code Discussed Condition With Patient, patient seen and examined with Dr. Koehler Attending Statement The exam, history, and the medical decision-making described in the above note were completed with the assistance of the mid-level provider. I reviewed and agree with the findings presented. I attest that I had a [id number] encounter with the patient on the same day, and personally performed and documented my assessment and findings in the medical record. patient seen on date of service. Right lower extremity healing wound does not appear acutely infected, however consulting wound care. Continue glucose in fluids with close blood sugar monitoring. Reji Valerio April 24, 2017 11:48 Timi Koehler MD April 24, 2017 11:48
[2017-04-24] MEDS ORDERED: RESP: ALBUTEROL 2.5 MG/IPRATROPIUM 0.5 MG NEB (PRN) NEB (12:45)
[2017-04-24] MEDS ORDERED: SODIUM CHLORIDE 23.4% INJ 77 MEQ in DEXTROSE 10% INJ 1,000 ML IV SCH (13:00)
[2017-04-24] MEDS: ACETAMINOPHEN/HYDROcodone 325 MG/10 MG TAB PO PRN ×2 (13:24→21:02)
--- NOTE | 2017-04-24 15:26 | EKG ---
Date Performed: 04/24/2017 Time Performed: 05:27:16 PTAGE: 66 years EKG: Poor initial anterior forces, which may be normal variant Otherwise within normal limits Si nce PREVIOUS TRACING 03/11/2017, axis is less leftward and the ST-T changes have improved. P REVIOUS TRACIN03/11/2017 09.19 DOCTOR: Timo Cobb Interpretating Date/Time 04/24/2017 15:25:33
[2017-04-24] MEDS: HEPARIN SODIUM - SQ 10,000 UNITS/ML VIAL SQ SCH (21:00)
[2017-04-25] VITALS (8 sets, daily range): BP systolic 139–176; BP diastolic 62–73; PULSE 74–91; RESP 18–20; TEMP 96.9–98.1; O2SAT 82–98
[2017-04-25] MEDS: ASPIRIN 81 MG CHEW TAB CHEW SCH (08:39)
[2017-04-25] MEDS: PRAVASTATIN SOD 40 MG TAB PO SCH (08:39)
[2017-04-25] MEDS: DOCUSATE SODIUM 50 MG/SENNA 8.6 MG TAB PO SCH ×2 (08:39→21:59)
[2017-04-25] MEDS: ISOSORBIDE MONONITRATE 30 MG TAB PO SCH (08:39)
[2017-04-25] MEDS: HEPARIN SODIUM - SQ 10,000 UNITS/ML VIAL SQ SCH ×2 (08:39→22:00)
[2017-04-25 08:40] LABS: AUTOMATED NEUTROPHIL # 3.5 TH/MM3 (1.8-7.7); BASOPHIL # 0.1 TH/MM3 (0-0.2); BASOPHIL % 0.9 % (0.0-2.0); EOSINOPHIL # 0.1 TH/MM3 (0-0.4); EOSINOPHIL % 2.4 % (0.0-4.0); HEMATOCRIT 26.1 % (35.0-46.0); HEMO FLAGS DIFF FINAL; LYMPH % 25.8 % (9.0-44.0); LYMPHOCYTE # 1.4 TH/MM3 (1.0-4.8); MEAN CELL VOLUME 91.6 FL (80.0-100.0); MEAN CORPUSCULAR HGB CONC 32.7 % (32.0-36.0); MONO % 7.1 % (0.0-8.0); NEUT % 63.8 % (16.0-70.0); PLATELET COUNT 265 TH/MM3 (150-450); RED BLOOD COUNT 2.85 MIL/MM3 (4.00-5.30); RED CELL DISTRIBUTION WIDTH 17.9 % (11.6-17.2); WHITE BLOOD COUNT 5.5 TH/MM3 (4.0-11.0)
[2017-04-25] MEDS: ACETAMINOPHEN/HYDROcodone 325 MG/10 MG TAB PO PRN ×2 (08:40→23:48)
[2017-04-25] MEDS: SODIUM CHLORIDE 0.9% FLUSH 10 ML FLUSH IV FLUSH SCH ×2 (08:41→22:00)
[2017-04-25] MEDS ORDERED: PRASUGREL 10 MG TAB PO SCH (09:00)
[2017-04-25 09:01] LABS: ALKALINE PHOSPHATASE 153 U/L (45-117); ALT (GPT) 29 U/L (10-53); ANION GAP 11 MEQ/L (5-15); AST (GOT) 37 U/L (15-37); BICARBONATE 21.3 MEQ/L (21.0-32.0); BLOOD UREA NITROGEN 23 MG/DL (7-18); CHLORIDE 113 MEQ/L (98-107); GLOMERULAR FILTRATION RATE 58 ML/MIN (>89); POTASSIUM 4.5 MEQ/L (3.5-5.1); SODIUM (NA) 145 MEQ/L (136-145); TOTAL BILIRUBIN ADULT 0.2 MG/DL (0.2-1.0)
[2017-04-25 12:35] LABS: HEMOGLOBIN A1a 1.3 %; HEMOGLOBIN A1b 1.9 %; HEMOGLOBIN Ao 84.2 %; HEMOGLOBIN LA1C 1.6 %; HEMOGLOBIN P3 5.9 %
[2017-04-25] MEDS: SODIUM HYPOCHLORITE 0.125% 500 ML BTL TOPICAL SCH (13:20)
--- NOTE | 2017-04-25 16:20 | HHI.PR ---
Subjective Remarks Written by Reji Valerio, acting as scribe for Dr. Koehler on 04/25/17 at 16:02. Follow-up for hypoglycemia. The patient denies any further hypoglycemia. She denies any chest pain. She denies any acute shortness breath, however feels like her shortness breath has been getting progressively worse since her previous hospitalization. She denies any nausea or vomiting. She denies any fevers or chills. She denies any leg pain. She does have some lower extremity swelling. Objective Vitals Vital Signs Date Time Temp Pulse Resp B/P Pulse Ox O2 Delivery O2 Flow Rate FiO2 04/25/17 12:00 97.2 76 18 158/73 96 04/25/17 10:23 94 Nasal Cannula 3.00 04/25/17 09:55 18 04/25/17 08:00 96.9 74 18 176/73 94 04/25/17 04:00 98.1 80 18 164/72 90 04/25/17 00:00 98.0 74 20 154/70 98 04/24/17 22:22 96 Nasal Cannula 3.00 04/24/17 20:00 97.7 67 18 167/71 95 Result Diagram: 04/25/17 0743 04/25/17 0743 Imaging Last Impressions Chest X-Ray 04/24/17 0000 Signed Impressions: Service Date/Time: Monday, April 24, 2017 06:54 - CONCLUSION: 1. Abnormal perihilar and lower lung zone interstitial and airspace opacity. The nonspecific the pattern is suggestive of pulmonary edema in the appropriate clinical setting. 2. Xumat-gf-mjmgylza size left pleural effusion although slightly smaller than the prior chest x-ray performed on 03/20/2017. 3. Trace right pleural fluid. Rafa Ortiz MD Objective Remarks GENERAL: Well-developed well-nourished. In no acute distress. SKIN: Warm and dry. Right ankle ulcer with a clean dressing and no surrounding erythema. HEENT: Normocephalic. Pupils equal and round. Mucous membranes pink and moist. CARDIOVASCULAR: Regular rate and rhythm. No murmur appreciated. RESPIRATORY: No accessory muscle use. Diminished breath sounds decreased in the bases. GASTROINTESTINAL: Abdomen soft, non-tender, nondistended. Bowel sounds x4. MUSCULOSKELETAL: Right ankle ulcer as above. No clubbing or cyanosis. Trace edema. DP pulses are faintly palpable. NEUROLOGICAL: Awake and alert. No focal neurological deficits. Moves upper and lower extremities spontaneously. Normal speech. PSYCHIATRIC: Appropriate mood and affect; insight and judgment normal. A/P Assessment and Plan 66-year-old female with a past medical history of DM, COPD, HTN, CAD, CHF, GERD who presented for hypoglycemia Hypoglycemia with diabetes mellitus: With associated hypothermia. Presented with blood glucose 43. Improved. Discontinue D10 infusion. Hemoglobin A1c 6.4. Hold home insulin regimen, will need adjustment. Monitor Accu-Cheks. TSH and cortisol within normal limits. Chronic right lower extremity ulcer: Slow healing after a dog bite. Afebrile with no leukocytosis. Doesn't really look acutely infected, however would definitely benefit from continued aggressive wound care. Consulted improvement lead. Wet-to-dry dressings with Dakin's for now. Pleural effusion: Chest x-ray with bilateral pulmonary edema and pleural effusions, patient has history of the same. Reviewed previous imaging and thoracentesis studies. BNP is slightly elevated from previous. We will further evaluate the effusion as well as evaluate for any malignancy with thoracentesis with cytology. Supplemental oxygen as needed. Caution with IVF. DVT prophylaxis: Heparin Attending Statement This note was transcribed by scribe [Reji Valerio,]. I, Dr. Timi Koehler personally performed the history, physical exam, and medical decision making; and confirmed the accuracy of the information in the transcribed note. Authenticated by Dr. Timi Koehler on 04/29/17 at 07:32. Reji Valerio April 25, 2017 16:20 Timi Koehler MD Apr 29, 2017 07:32
--- NOTE | 2017-04-25 16:59 | RADRPT ---
EXAM DATE/TIME: 04/25/2017 16:29 [facility] COMPARISON: CHEST SINGLE AP, April 24, 2017, 6:54. INDICATIONS : Shortness of breath since thoracentesis on 04/21. MEDICAL HISTORY : Congestive heart failure. Chronic obstructive pulmonary disease. SURGICAL HISTORY : Stent placement. ENCOUNTER: Subsequent ACUITY: 4 - 6 days PAIN SCORE: 0/10 LOCATION: Bilateral chest FINDINGS: A small left pleural effusion is noted. Tiny right pleural effusion is also noted. Pulmonary vascul ar congestion as well as mild bibasilar atelectasis and/or infiltrates are noted. The heart is stabl e. CONCLUSION: 1. Mild pulmonary vascular congestion. 2. Small left pleural effusion and tiny right pleural effusion. 3. Bibasilar atelectasis and/or infiltrates. Linwood Chadwick MD on April 25, 2017 at 16:54 Board Certified Radiologist. This report was verified electronically.
[2017-04-25 19:31] LABS: INTERNATIONAL NORMALIZED RATIO 0.9 RATIO; PROTHROMBIN TIME - PATIENT 10.3 SEC (9.8-11.6)
[2017-04-26] VITALS (9 sets, daily range): BP systolic 120–190; BP diastolic 58–72; PULSE 61–79; RESP 18–20; TEMP 96–97.6; O2SAT 92–98
[2017-04-26] MEDS ORDERED: GLUCAGON 1 MG/ML VIAL OTHER PRN (01:00)
[2017-04-26] MEDS ORDERED: DEXTROSE 50% IN WATER 50 ML VIAL(D50) IV PRN (01:00)
[2017-04-26] MEDS: INSULIN ASPART SUPPLEMENTAL SCALE SQ SCH ×5 (01:24→21:00)
[2017-04-26] MEDS ORDERED: INSULIN ASPART SUPPLEMENTAL SCALE SQ SCH (07:00)
[2017-04-26] MEDS: HEPARIN SODIUM - SQ 10,000 UNITS/ML VIAL SQ SCH ×2 (08:20→21:14)
[2017-04-26] MEDS: DOCUSATE SODIUM 50 MG/SENNA 8.6 MG TAB PO SCH ×2 (08:21→21:14)
[2017-04-26] MEDS: ISOSORBIDE MONONITRATE 30 MG TAB PO SCH (08:21)
[2017-04-26] MEDS: SPIRONOLACTONE 25 MG TAB PO SCH (08:21)
[2017-04-26] MEDS: PRAVASTATIN SOD 40 MG TAB PO SCH (08:21)
[2017-04-26] MEDS: METOPROLOL TARTRATE 50 MG TAB PO SCH ×2 (08:21→21:14)
[2017-04-26] MEDS: FUROSEMIDE 40 MG TAB PO SCH (08:21)
[2017-04-26] MEDS: SODIUM CHLORIDE 0.9% FLUSH 10 ML FLUSH IV FLUSH SCH ×2 (08:22→21:00)
[2017-04-26] MEDS: ASPIRIN 81 MG CHEW TAB CHEW SCH (08:22)
[2017-04-26] MEDS: LISINOPRIL 20 MG TAB PO SCH (08:22)
[2017-04-26] MEDS: SODIUM HYPOCHLORITE 0.125% 500 ML BTL TOPICAL SCH (08:22)
--- NOTE | 2017-04-26 10:35 | HHI.PR ---
Subjective Remarks Follow up hypoglycemia and right del cid/ankle ulcer. Patient is siting up eating breakfast. Patient states her shortness of breath is unchanged, currently on 2L NC. Denies any chest pain, fever or chills. Objective Vitals Vital Signs Date Time Temp Pulse Resp B/P Pulse Ox O2 Delivery O2 Flow Rate FiO2 04/26/17 08:38 96.2 72 18 190/72 95 04/26/17 04:00 97.6 74 20 133/58 95 04/26/17 00:00 97.0 70 20 163/70 94 04/25/17 23:00 79 04/25/17 20:00 97.9 79 20 145/62 95 04/25/17 18:04 Nasal Cannula 3.00 04/25/17 16:00 97.1 91 18 139/65 82 04/25/17 12:00 97.2 76 18 158/73 96 04/25/17 10:23 94 Nasal Cannula 3.00 I/O 04/25/17 04/25/17 04/25/17 04/26/17 04/26/17 04/26/17 07:00 15:00 23:00 07:00 15:00 23:00 Intake Total 480 ml Balance 480 ml Intake Oral 480 ml # Voids 6 2 1 2 # Bowel Movements 1 1 1 Result Diagram: 04/25/17 0743 04/25/17 0743 Imaging Last Impressions Chest X-Ray 04/25/17 0000 Signed Impressions: Service Date/Time: Tuesday, April 25, 2017 16:29 - CONCLUSION: 1. Mild pulmonary vascular congestion. 2. Small left pleural effusion and tiny right pleural effusion. 3. Bibasilar atelectasis and/or infiltrates. Linwood Chadwick MD Objective Remarks GENERAL: Well-developed well-nourished. In no acute distress. SKIN: Warm and dry. Right del cid/ ankle wound, slightly unhealing, un approximated, slough present on some parts of wound bed. HEENT: Normocephalic. Pupils equal and round. Mucous membranes pink and moist. CARDIOVASCULAR: Regular rate and rhythm. No murmur appreciated. RESPIRATORY: No accessory muscle use. Diminished breath sounds decreased in the bases. GASTROINTESTINAL: Abdomen soft, non-tender, nondistended. Bowel sounds x4. MUSCULOSKELETAL: Right ankle/del cid ulcer as above. No clubbing or cyanosis. Trace edema. DP pulses are faintly palpable. NEUROLOGICAL: Awake and alert. No focal neurological deficits. Moves upper and lower extremities spontaneously. Normal speech. PSYCHIATRIC: Appropriate mood and affect; insight and judgment normal. Medications and IVs Current Medications Medications (Trade) Dose Ordered Sig/Marie Route Start Time Stop Time Status Last Admin (NS Flush) 2 ml UNSCH PRN IV FLUSH 04/24/17 06:45 (NS Flush) 2 ml BID IV FLUSH 04/24/17 09:00 04/26/17 08:22 (Zofran Inj) 4 mg Q6H PRN IVP 04/24/17 06:45 04/24/17 17:42 (Tylenol) 650 mg Q6H PRN PO 04/24/17 06:45 (Sullivan 5-325 Mg) 1 tab Q4H PRN PO 04/24/17 06:45 (Sullivan 10-325 Mg) 1 tab Q4H PRN PO 04/24/17 06:45 04/25/17 23:48 (Jocelyn-Colace) 1 tab BID PO 04/24/17 09:00 04/26/17 08:21 (Milk Of Magnesia Liq) 30 ml Q12H PRN PO 04/24/17 06:45 (Senokot) 17.2 mg Q12H PRN PO 04/24/17 06:45 (Dulcolax Supp) 10 mg DAILY PRN RECTAL 04/24/17 06:45 (Lactulose Liq) 30 ml DAILY PRN PO 04/24/17 06:45 (Dakin'S 0.125% Soln) 500 ml DAILY TOPICAL 04/24/17 12:00 04/26/17 08:22 (Aspirin Chew) 81 mg DAILY CHEW 04/25/17 09:00 04/25/17 08:39 (Imdur) 30 mg DAILY PO 04/25/17 09:00 04/26/17 08:21 (Effient) 10 mg DAILY PO 04/25/17 09:00 Hold 04/25/17 08:40 (Pravachol) 40 mg DAILY PO 04/25/17 09:00 04/26/17 08:21 (Heparin Inj) 5,000 units Q12HR SQ 04/24/17 21:00 04/25/17 22:00 (D50w (Vial) Inj) 50 ml UNSCH PRN IV 04/26/17 01:00 (Glucagon Inj) 1 mg UNSCH PRN OTHER 04/26/17 01:00 (Norvasc) 10 mg DAILY PO 04/26/17 09:00 04/26/17 08:21 (Lasix) 40 mg DAILY PO 04/26/17 09:00 04/26/17 08:21 (Prinivil) 20 mg DAILY PO 04/26/17 09:00 04/26/17 08:22 (Lopressor) 50 mg BID PO 04/26/17 09:00 04/26/17 08:21 (Aldactone) 25 mg DAILY PO 04/26/17 09:00 04/26/17 08:21 Urinary Catheter: No Vascular Central Line Catheter: No A/P Assessment and Plan 66-year-old female with a past medical history of DM, COPD, HTN, CAD, CHF, GERD who presented for hypoglycemia Hypoglycemia with diabetes mellitus: With associated hypothermia. Presented with blood glucose 43. Improved. Discontinue D10 infusion. Hemoglobin A1c 6.4. Hold home insulin regimen, will need adjustment. Monitor Accu-Cheks with SSI. TSH and cortisol within normal limits. Chronic right lower extremity ulcer: Slow healing after a dog bite. Afebrile with no leukocytosis. Doesn't look acutely infected, has some slough in parts of wound bed. Cont aggressive wound care. food service assistant following. Wet-to-dry dressings with Dakin's for now. Add Santyl ointment daily. Wound culture ordered , VRE + in February 2017. Consult ID for recommendations. Pleural effusion: Chest x-ray with bilateral pulmonary edema and pleural effusions, patient has history of the same. Reviewed previous imaging and thoracentesis studies. BNP is slightly elevated from previous. Thoracentesis with cytology pending today. Supplemental oxygen as needed. Diarrhea, acute, patient does have a history of CDIFF -C Diff pending -Cont contact isolation DVT prophylaxis: Heparin Discussed with Dr. Koehler Attending Statement The exam, history, and the medical decision-making described in the above note were completed with the assistance of the mid-level provider. I reviewed and agree with the findings presented. I attest that I had a [id number] encounter with the patient on the same day, and personally performed and documented my assessment and findings in the medical record.patient seen and examined on date of service.patient reports difficulty breathing. personally reviewed old CT angiogram aorta, which shows lung lesion in February. Thoracentesis results pending. Jane Monaco April 26, 2017 10:35 Timi Koehler MD Apr 29, 2017 07:55
[2017-04-26] MEDS ORDERED: COLLAGENASE OINT 30 GM TUBE TOPICAL SCH (11:00)
[2017-04-26] MEDS ORDERED: DEXT 5%-NACL 0.45% 1000 ML INJ 1,000 ML IV SCH (13:00)
--- NOTE | 2017-04-26 17:49 | PD.RAD ---
Post US Procedure Prog Note Pre Procedure Diagnosis: (1) Pleural effusion, left Post Procedure Diagnosis: (1) Pleural effusion, left Procedure Date: April 26, 2017 Supervising Radiologist: Rafa Gates Proceduralist/Assist: Tara Parker RDMS Anesthesia: Local Plan of Activity Patient to Unit: Nursing Unit Patient Condition: Fair See PACS Report for procedural detail/treatment Drainage Procedure Procedure 1 Imaging Guidance: Ultrasound Side: Left Procedure Type: Thoracentesis Angolan: 6 Fluid Description: Clear, Yellow Rafa Gates MD April 26, 2017 17:49
--- NOTE | 2017-04-26 18:07 | RADRPT ---
EXAM DATE/TIME: 04/26/2017 17:47 [facility] COMPARISON: CHEST SINGLE AP, April 25, 2017, 16:29. CHEST EXPIRATION ONLY, March 22, 2017, 15:54. INDICATIONS : Post thoracentesis. MEDICAL HISTORY : None. SURGICAL HISTORY : None. ENCOUNTER: Initial ACUITY: 1 day PAIN SCORE: 0/10 LOCATION: Left thorax FINDINGS: There is no evidence of pneumothorax status post thoracentesis. Bibasilar atelectasis masses or infil trates are noted. The heart is enlarged. A small right pleural effusion is noted. CONCLUSION: No pneumothorax status post thoracentesis. Bibasilar atelectasis and/or infiltrates. Cardiomegaly. Sm all right pleural effusion. Linwood Chadwick MD on April 26, 2017 at 18:02 Board Certified Radiologist. This report was verified electronically.
--- NOTE | 2017-04-26 18:25 | RADRPT ---
EXAM DATE/TIME: 04/25/2017 16:57 [facility] COMPARISON: CHEST EXPIRATION ONLY, April 26, 2017, 17:47. INDICATIONS : Left pleural effusion. MEDICAL HISTORY : Hypertension. Chronic obstructive pulmonary disease. Congestive heart failure. Myocardial infarction. Coronary artery disease. Diabetes. SURGICAL HISTORY : Tonsillectomy. section. Hysterectomy. Laminectomy. Cardiac stent. Appendectomy. ENCOUNTER: Subsequent ACUITY: 2 weeks PAIN SCORE: 8/10 LOCATION: Left chest FLUID: Total volume of 1,150 cc of clear, yellow fluid was removed. Fluid was sent to lab for ordered studies. TECHNIQUE: 1. Ultrasound guidance for thoracentesis. 2. Thoracentesis. The risks, benefits, and alternatives to ultrasound guided thoracentesis were explained to the patien t in lay simple terms, including the risk of bleeding and infection. Written and verbal informed con sent was obtained. Appropriate area for thoracentesis was marked under ultrasound guidance with the patient in the uprig ht position. Overlying skin was prepped and draped in the usual sterile fashion and with local anest hetic, a dermatotomy was made with an 11 blade scalpel. A 6 Hungarian thoracentesis catheter was placed in the pleural space and fluid was removed. Catheter was then removed and a sterile dressing applie d. There were no immediate complications. The patient tolerated the procedure well and the left the ultrasound suite in stable condition. Chest radiograph is to be obtained. CONCLUSION: Uncomplicated ultrasound guided thoracentesis. Rafa Gates MD on April 26, 2017 at 18:23 Board Certified Radiologist. This report was verified electronically.
--- NOTE | 2017-04-26 18:26 | MB ---
cc: MARYURI HOOKS MD DATE OF CONSULTATION 04/26/[address] Koehler REASON FOR CONSULTATION Poor healing wound right leg, VRE positive in February of 2017. HISTORY OF PRESENT ILLNESS This is one of several admissions for the patient to this hospital. The patient was admitted this hospitalization on April 24 with hypoglycemia in addition to altered mental status and nausea. This consultation is requested for a nonhealing wound on the right leg nonhealing. The patient was hospitalized back in January with a necrotic wound on the right lower extremity following a dog bite. Cultures at the time had Pseudomonas and E-coli and she was treated with intravenous Zosyn. She was discharged from the hospital on March 07. She was admitted again on March 11 for DKA and sepsis and repeated culture of the wound grew Pseudomonas and VRE and E-coli. At that time she also had C-difficile colitis and she was treated for that with oral vancomycin. She was not given additional antibiotics for the leg since it was felt to be colonized. She followed up with podiatry and hyperbaric treatments. The patient states to me that the wound is slowly closing in. At one point she had a VAC device over the wound. Because of the continued wound this consultation is requested for infectious disease evaluation. The patient is in no acute distress except for shortness of breath. She is due to go to a thoracentesis shortly because of pleural effusion. Her white count is normal. The patient states that she has recurrence of her diarrhea. The diarrhea had improved after treatment for C-difficile but she states that the diarrhea has returned and she had three bowel movement today. New C-difficile test has been ordered and is pending. Blood cultures taken on 04/24 is pending. A culture of the wound from the right leg is pending as well. The patient has no fever or chills. She is awake and alert and oriented. She denies other symptoms. PAST MEDICAL HISTORY COPD, hypertension, diabetes mellitus, coronary artery disease, congestive heart failure, gastroesophageal reflux disease, appendectomy, coronary stent, hysterectomy, tonsillectomy, appendectomy, , left wrist ganglion cyst removal. ALLERGIES DARVON. MEDICATIONS 1. Norvasc. 2. Lasix. 3. Prinivil. 4. Lopressor. 5. Aldactone. 6. Aspirin. 7. Imdur. 8. Pravachol. 9. [place] 10 p.r.n. SOCIAL HISTORY No tobacco. No alcohol. Medical marijuana use. FAMILY HISTORY Noncontributory. REVIEW OF SYSTEMS The review of systems apart from shortness of breath the entire 10-point review is negative. PHYSICAL EXAMINATION GENERAL: This is a well-developed female who is in no acute distress but feels somewhat short of breath. She is awake and alert and oriented. VITAL SIGNS: Include temperature 96 degrees, BP 120/60, respirations 18, heart rate 61. HEENT: Head is atraumatic. Extraocular movements grossly intact, pupils reactive to light. Several missing teeth. No oropharyngeal lesions. NECK: Supple. No adenopathy. LUNGS: Clear breath sounds which are diminished at the bases. HEART: Regular rate and rhythm without murmurs, rubs or gallops. ABDOMEN: Bowel sounds present, soft, no tenderness appreciated. RECTAL: Not performed. EXTREMITIES: The right tibia has an ulceration with good beefy granulation tissue. This is a large ulcer compressing the anterior tibia approximately 6 cm x 4 cm. NEURO: Nonfocal. SKIN: No diffuse rash. PSYCH: The patient calm and cooperative. LABORATORY DATA WBC 5.5, platelets 265, hemoglobin 8.5, creatinine 0.96, BUN 23, sodium 145, estimated GFR 58. IMPRESSION 1. 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 The patient has been undergoing hyperbaric oxygen treatment under supervision of podiatry. 2. Diarrhea in patient with previously treated C-difficile infection. The C-difficile in the process of being ruled out. RECOMMENDATIONS Continue dressing changes to the right leg. I do not see the need for antibiotic at this time. I think the patient needs to follow up with podiatry. Dr. Avendaño has seen her previously. If the C-difficile toxin is positive she will need to be treated for C-difficile. However, I am requested to see the patient for the wound infection of the leg. I recommend calling podiatry consult to evaluate the leg wound since the patient has been following with them previously. Thank you for this consultation. Maryuri Hooks MD FD/JEANE /4:54 PM /6:11 PM
[2017-04-26 21:21] LABS: PLEURAL FLUID LYMPHS 45 %
[2017-04-26 23:16] LABS: C. DIFF EPI 027 PRESUMPTIVE POSITIVE (NEGATIVE)
[2017-04-26 23:18] LABS: C. DIFF TOXIN PCR POSITIVE (NEGATIVE)
[2017-04-27] VITALS (8 sets, daily range): BP systolic 126–174; BP diastolic 59–87; PULSE 56–72; RESP 16–22; TEMP 96.7–98.5; O2SAT 92–96
[2017-04-27] MEDS ORDERED: metroNIDAZOLE 500 MG INJ 100 ML IV SCH (05:00)
[2017-04-27] MEDS ORDERED: metroNIDAZOLE 500 MG TAB PO SCH (06:00)
[2017-04-27] MEDS: INSULIN ASPART SUPPLEMENTAL SCALE SQ SCH ×3 (06:44→22:10)
[2017-04-27] MEDS: PRAVASTATIN SOD 40 MG TAB PO SCH (08:53)
[2017-04-27] MEDS: LISINOPRIL 20 MG TAB PO SCH (08:53)
[2017-04-27] MEDS: ASPIRIN 81 MG CHEW TAB CHEW SCH (08:53)
[2017-04-27] MEDS: DOCUSATE SODIUM 50 MG/SENNA 8.6 MG TAB PO SCH ×2 (08:53→21:00)
[2017-04-27] MEDS: SPIRONOLACTONE 25 MG TAB PO SCH (08:54)
[2017-04-27] MEDS: ISOSORBIDE MONONITRATE 30 MG TAB PO SCH (08:54)
[2017-04-27] MEDS: METOPROLOL TARTRATE 50 MG TAB PO SCH ×2 (08:54→22:13)
[2017-04-27] MEDS: VANCOMYCIN 500 MG VIAL (FOR ORAL USE ONLY) PO SCH ×4 (08:55→22:08)
[2017-04-27] MEDS: HEPARIN SODIUM - SQ 10,000 UNITS/ML VIAL SQ SCH ×2 (08:55→22:08)
[2017-04-27] MEDS: SODIUM CHLORIDE 0.9% FLUSH 10 ML FLUSH IV FLUSH SCH ×2 (09:00→22:09)
[2017-04-27] MEDS: FUROSEMIDE 40 MG TAB PO SCH (09:00)
--- NOTE | 2017-04-27 16:34 | HHI.PR ---
Subjective Remarks Follow up shortness of breath and RT leg wound. Patient states she feels much better after the thoracentesis. Denies any shortness of breath, chest pain, fever or chills. Objective Vitals Vital Signs Date Time Temp Pulse Resp B/P Pulse Ox O2 Delivery O2 Flow Rate FiO2 04/27/17 16:15 97.5 70 18 146/67 94 04/27/17 12:15 96.7 66 18 126/59 93 04/27/17 10:10 94 Nasal Cannula 2.00 04/27/17 08:02 97.3 67 18 170/73 93 04/27/17 05:36 97.4 57 18 174/72 94 04/27/17 00:51 98.5 64 16 131/87 92 04/26/17 21:44 93 Nasal Cannula 2.00 04/26/17 20:00 96.9 70 20 148/66 92 I/O 04/26/17 04/26/17 04/26/17 04/27/17 04/27/17 04/27/17 07:00 15:00 23:00 07:00 15:00 23:00 Intake Total 480 ml 240 ml 480 ml Balance 480 ml 240 ml 480 ml Intake Oral 480 ml 240 ml 480 ml # Voids 2 3 0 2 # Bowel Movements 1 0 1 Result Diagram: 04/25/1774204/25/1743 Objective Remarks GENERAL: Well-developed well-nourished. In no acute distress. SKIN: Warm and dry. Right del cid/ ankle wound, slightly unhealing, un approximated, slough present on some parts of wound bed. HEENT: Normocephalic. Pupils equal and round. Mucous membranes pink and moist. CARDIOVASCULAR: Regular rate and rhythm. No murmur appreciated. RESPIRATORY: No accessory muscle use. Diminished breath sounds decreased in the bases. GASTROINTESTINAL: Abdomen soft, non-tender, nondistended. Bowel sounds x4. MUSCULOSKELETAL: Right ankle/del cid ulcer as above. No clubbing or cyanosis. Trace edema. DP pulses are faintly palpable. NEUROLOGICAL: Awake and alert. No focal neurological deficits. Moves upper and lower extremities spontaneously. Normal speech. PSYCHIATRIC: Appropriate mood and affect; insight and judgment normal. Medications and IVs Current Medications Medications (Trade) Dose Ordered Sig/Marie Route Start Time Stop Time Status Last Admin (NS Flush) 2 ml UNSCH PRN IV FLUSH 04/24/17 06:45 (NS Flush) 2 ml BID IV FLUSH 04/24/17 09:00 04/27/17 09:00 (Zofran Inj) 4 mg Q6H PRN IVP 04/24/17 06:45 04/24/17 17:42 (Tylenol) 650 mg Q6H PRN PO 04/24/17 06:45 ([place] 5-325 Mg) 1 tab Q4H PRN PO 04/24/17 06:45 ([place] 10-325 Mg) 1 tab Q4H PRN PO 04/24/17 06:45 04/25/17 23:48 (Jocelyn-Colace) 1 tab BID PO 04/24/17 09:00 04/27/17 08:53 (Milk Of Magnesia Liq) 30 ml Q12H PRN PO 04/24/17 06:45 (Senokot) 17.2 mg Q12H PRN PO 04/24/17 06:45 (Dulcolax Supp) 10 mg DAILY PRN RECTAL 04/24/17 06:45 (Lactulose Liq) 30 ml DAILY PRN PO 04/24/17 06:45 (Dakin'S 0.125% Soln) 500 ml DAILY TOPICAL 04/24/17 12:00 04/26/17 08:22 (Aspirin Chew) 81 mg DAILY CHEW 04/25/17 09:00 04/27/17 08:53 (Imdur) 30 mg DAILY PO 04/25/17 09:00 04/27/17 08:54 (Effient) 10 mg DAILY PO 04/25/17 09:00 Hold 04/25/17 08:40 (Pravachol) 40 mg DAILY PO 04/25/17 09:00 04/27/17 08:53 (Heparin Inj) 5,000 units Q12HR SQ 04/24/17 21:00 04/27/17 08:55 (D50w (Vial) Inj) 50 ml UNSCH PRN IV 04/26/17 01:00 (Glucagon Inj) 1 mg UNSCH PRN OTHER 04/26/17 01:00 (Norvasc) 10 mg DAILY PO 04/26/17 09:00 04/27/17 08:53 (Lasix) 40 mg DAILY PO 04/26/17 09:00 04/27/17 09:00 (Prinivil) 20 mg DAILY PO 04/26/17 09:00 04/27/17 08:53 (Lopressor) 50 mg BID PO 04/26/17 09:00 04/27/17 08:54 (Aldactone) 25 mg DAILY PO 04/26/17 09:00 04/27/17 08:54 (VANCOMYCIN for oral use only) 250 mg QID PO 04/27/17 09:00 04/27/17 12:30 A/P Assessment and Plan 66-year-old female with a past medical history of DM, COPD, HTN, CAD, CHF, GERD who presented for hypoglycemia Hypoglycemia with diabetes mellitus: With associated hypothermia. Presented with blood glucose 43. Improved. Discontinue D10 infusion. Hemoglobin A1c 6.4. Hold home insulin regimen, will need adjustment. Monitor Accu-Cheks with SSI. TSH and cortisol within normal limits. Monitor overnight, and will restart long acting tomorrow if needed. Chronic right lower extremity ulcer: Slow healing after a dog bite. Afebrile with no leukocytosis. Doesn't look acutely infected, has some slough in parts of wound bed. Cont aggressive wound care. 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 Wet-to-dry dressings with Dakin's. D/C Santyl ointment daily. Wound culture ordered, VRE + in February 2017. Consult ID for recommendations, recommended no antibiotics at this time. Will need home health at discharge for wound care. He ground host/hostess is Dr. Read. Pleural effusion: Chest x-ray with bilateral pulmonary edema and pleural effusions, patient has history of the same. Reviewed previous imaging and thoracentesis studies. BNP is slightly elevated from previous. Thoracentesis with cytology pending today. Supplemental oxygen as needed. Daily PT. Wean o2, will order walk test if unable to wean. Diarrhea, acute, patient does have a history of CDIFF -C Diff positive, Vanco PO 250 QID -Cont contact isolation DVT prophylaxis: Jane English April 27, 2017 16:33
[2017-04-28] VITALS: BP 170/74; PULSE 70; RESP 18; TEMP 98.5; O2SAT 92
[2017-04-28] MEDS: ACETAMINOPHEN/HYDROcodone 325 MG/10 MG TAB PO PRN (06:09)
[2017-04-28] MEDS: INSULIN ASPART SUPPLEMENTAL SCALE SQ SCH ×4 (06:12→22:52)
[2017-04-28 06:45] VITALS: BP 160/70; PULSE 69; RESP 20; TEMP 97.8; O2SAT 94
[2017-04-28 08:00] VITALS: BP 167/70; PULSE 64; RESP 20; TEMP 96.7; O2SAT 93
[2017-04-28 08:29] LABS: AUTOMATED NEUTROPHIL # 2.3 TH/MM3 (1.8-7.7); BASOPHIL # 0.1 TH/MM3 (0-0.2); BASOPHIL % 1.1 % (0.0-2.0); EOSINOPHIL # 0.2 TH/MM3 (0-0.4); EOSINOPHIL % 4.6 % (0.0-4.0); HEMATOCRIT 25.9 % (35.0-46.0); HEMO FLAGS DIFF FINAL; LYMPH % 33.4 % (9.0-44.0); LYMPHOCYTE # 1.5 TH/MM3 (1.0-4.8); MEAN CELL VOLUME 91.7 FL (80.0-100.0); MEAN CORPUSCULAR HEMOGLOBIN 29.5 PG (27.0-34.0); MEAN CORPUSCULAR HGB CONC 32.1 % (32.0-36.0); NEUT % 49.9 % (16.0-70.0); PLATELET COUNT 248 TH/MM3 (150-450); RED BLOOD COUNT 2.83 MIL/MM3 (4.00-5.30); RED CELL DISTRIBUTION WIDTH 17.6 % (11.6-17.2); WHITE BLOOD COUNT 4.6 TH/MM3 (4.0-11.0)
[2017-04-28] MEDS: SODIUM CHLORIDE 0.9% FLUSH 10 ML FLUSH IV FLUSH SCH ×2 (09:00→23:12)
[2017-04-28] MEDS: SODIUM HYPOCHLORITE 0.125% 500 ML BTL TOPICAL SCH (09:00)
[2017-04-28] MEDS: ASPIRIN 81 MG CHEW TAB CHEW SCH (09:10)
[2017-04-28] MEDS: LISINOPRIL 20 MG TAB PO SCH (09:10)
[2017-04-28] MEDS: PRAVASTATIN SOD 40 MG TAB PO SCH (09:10)
[2017-04-28] MEDS: ISOSORBIDE MONONITRATE 30 MG TAB PO SCH (09:10)
[2017-04-28] MEDS: VANCOMYCIN 500 MG VIAL (FOR ORAL USE ONLY) PO SCH ×4 (09:10→23:10)
[2017-04-28] MEDS: DOCUSATE SODIUM 50 MG/SENNA 8.6 MG TAB PO SCH ×2 (09:10→21:00)
[2017-04-28] MEDS: SPIRONOLACTONE 25 MG TAB PO SCH (09:10)
[2017-04-28] MEDS: METOPROLOL TARTRATE 50 MG TAB PO SCH ×2 (09:10→23:10)
[2017-04-28] MEDS: FUROSEMIDE 40 MG TAB PO SCH (09:10)
[2017-04-28] MEDS: HEPARIN SODIUM - SQ 10,000 UNITS/ML VIAL SQ SCH ×2 (09:11→23:10)
--- NOTE | 2017-04-28 10:42 | HHI.FF ---
Face to Face Verification Diagnosis: (1) Hypoglycemia (2) Pleural effusion, left (3) Dog bite of multiple sites of right lower extremity (4) Clostridium difficile colitis Physical Therapy Order: Evaluate and Treat, Improve ambulation, Strength and gait training Home Health Nursing Order: Medical education Signs/symptoms of disease process Diabetic education Oxygen administration education Medication education-adverse effect Wound care and dressing changes Nursing assessment with vital signs I have seen patient Brinda Maynard on 04/28/17. My clinical findings support the need for the requested home health care services because: Ltd mobility - disease progression Deconditioned w/ increased weakness Limited ability to care for self Infection w/ risk of complications I certify that my clinical findings support that this patient is homebound because: Unsteady gait/balance Unsafe to leave home unassisted Unable to use public transportation Jane Monaco April 28, 2017 10:42
[2017-04-28] MEDS: INSULIN DETEMIR 100 UNITS/ML VIAL SQ SCH (11:36)
--- NOTE | 2017-04-28 11:36 | HHI.PR ---
Subjective Remarks Follow up hypoglycemia, and c diff. Paitent resting in bed. Denies any pain. States she feels better even off the oxygen. Currently on rm air. Denies any chest pain, sob, fever or chills. Objective Vitals Vital Signs Date Time Temp Pulse Resp B/P Pulse Ox O2 Delivery O2 Flow Rate FiO2 04/28/17 08:00 96.7 64 20 167/70 93 04/28/17 06:45 97.8 69 20 160/70 94 04/28/17 00:00 98.5 70 18 170/74 92 04/27/17 21:00 56 04/27/17 20:00 98.5 72 22 168/72 96 04/27/17 18:01 Nasal Cannula 2.00 04/27/17 16:15 97.5 70 18 146/67 94 04/27/17 12:15 96.7 66 18 126/59 93 I/O 04/27/17 04/27/17 04/27/17 04/28/17 04/28/17 04/28/17 07:00 15:00 23:00 07:00 15:00 23:00 Intake Total 480 ml Balance 480 ml Intake Oral 480 ml # Voids 3 1 # Bowel Movements 2 1 Result Diagram: 04/28/17 0740 04/25/17 0743 Imaging Last Impressions Thoracentesis Ultrasound 04/26/17 0000 Signed Impressions: Service Date/Time: Tuesday, April 25, 2017 16:57 - CONCLUSION: Uncomplicated ultrasound guided thoracentesis. Rafa Gates MD Chest X-Ray 04/26/17 0000 Signed Impressions: Service Date/Time: Wednesday, April 26, 2017 17:47 - CONCLUSION: No pneumothorax status post thoracentesis. Bibasilar atelectasis and/or infiltrates. Cardiomegaly. Small right pleural effusion. Linwood Chadwick MD Objective Remarks GENERAL: Well-developed well-nourished. In no acute distress. SKIN: Warm and dry. Right del cid/ ankle wound, slightly unhealing, un approximated, slough present on some parts of wound bed. HEENT: Normocephalic. Pupils equal and round. Mucous membranes pink and moist. CARDIOVASCULAR: Regular rate and rhythm. No murmur appreciated. RESPIRATORY: No accessory muscle use. Diminished breath sounds decreased in the bases. GASTROINTESTINAL: Abdomen soft, non-tender, nondistended. Bowel sounds x4. MUSCULOSKELETAL: Right ankle/del cid ulcer as above. No clubbing or cyanosis. Trace edema. DP pulses are faintly palpable. NEUROLOGICAL: Awake and alert. No focal neurological deficits. Moves upper and lower extremities spontaneously. Normal speech. PSYCHIATRIC: Appropriate mood and affect; insight and judgment normal. Medications and IVs Current Medications Medications (Trade) Dose Ordered Sig/Marie Route Start Time Stop Time Status Last Admin (NS Flush) 2 ml UNSCH PRN IV FLUSH 04/24/17 06:45 (NS Flush) 2 ml BID IV FLUSH 04/24/17 09:00 04/28/17 09:00 (Zofran Inj) 4 mg Q6H PRN IVP 04/24/17 06:45 04/24/17 17:42 (Tylenol) 650 mg Q6H PRN PO 04/24/17 06:45 ([place] 5-325 Mg) 1 tab Q4H PRN PO 04/24/17 06:45 ([place] 10-325 Mg) 1 tab Q4H PRN PO 04/24/17 06:45 04/28/17 06:09 (Jocelyn-Colace) 1 tab BID PO 04/24/17 09:00 04/28/17 09:10 (Milk Of Magnesia Liq) 30 ml Q12H PRN PO 04/24/17 06:45 (Senokot) 17.2 mg Q12H PRN PO 04/24/17 06:45 (Dulcolax Supp) 10 mg DAILY PRN RECTAL 04/24/17 06:45 (Lactulose Liq) 30 ml DAILY PRN PO 04/24/17 06:45 (Dakin'S 0.125% Soln) 500 ml DAILY TOPICAL 04/24/17 12:00 04/28/17 09:00 (Aspirin Chew) 81 mg DAILY CHEW 04/25/17 09:00 04/28/17 09:10 (Imdur) 30 mg DAILY PO 04/25/17 09:00 04/28/17 09:10 (Effient) 10 mg DAILY PO 04/25/17 09:00 Hold 04/25/17 08:40 (Pravachol) 40 mg DAILY PO 04/25/17 09:00 04/28/17 09:10 (Heparin Inj) 5,000 units Q12HR SQ 04/24/17 21:00 04/28/17 09:11 (D50w (Vial) Inj) 50 ml UNSCH PRN IV 04/26/17 01:00 (Glucagon Inj) 1 mg UNSCH PRN OTHER 04/26/17 01:00 (Norvasc) 10 mg DAILY PO 04/26/17 09:00 04/28/17 09:10 (Lasix) 40 mg DAILY PO 04/26/17 09:00 04/28/17 09:10 (Prinivil) 20 mg DAILY PO 04/26/17 09:00 04/28/17 09:10 (Lopressor) 50 mg BID PO 04/26/17 09:00 04/28/17 09:10 (Aldactone) 25 mg DAILY PO 04/26/17 09:00 04/28/17 09:10 (VANCOMYCIN for oral use only) 250 mg QID PO 04/27/17 09:00 04/28/17 09:10 (Levemir Inj) 5 units DAILY SQ 04/28/17 11:00 Urinary Catheter: No Vascular Central Line Catheter: No A/P Assessment and Plan 66-year-old female with a past medical history of DM, COPD, HTN, CAD, CHF, GERD who presented for hypoglycemia Hypoglycemia with diabetes mellitus: With associated hypothermia. Presented with blood glucose 43. Improved. Discontinue D10 infusion. Hemoglobin A1c 6.4. Bs 200-300s. Restart Lantus 5 Units daily, may need to adjust. Monitor Accu-Cheks with SSI. TSH and cortisol within normal limits. Chronic right lower extremity ulcer: Slow healing after a dog bite. Afebrile with no leukocytosis. Doesn't look acutely infected, has some slough in parts of wound bed. Cont aggressive wound care. hydraulic rockbreaker operator following. Wound culture ordered, VRE + in February 2017. Wound culture this admission grew MRSA. Consult ID for recommendations, recommended.Bactroban ointment to the R. tibia wound bid, Follow up with wound care center. Can be discharged from my standpoint.Will need home health at discharge for wound care. Her atomic welder is Dr. Read, will need to follow up. Pleural effusion: Chest x-ray with bilateral pulmonary edema and pleural effusions, patient has history of the same. Reviewed previous imaging and thoracentesis studies. BNP is slightly elevated from previous. Thoracentesis with cytology pending today. Supplemental oxygen as needed. Daily PT. Currently weaned off o2. Diarrhea, acute, patient does have a history of CDIFF -C Diff positive, ID recommended Vanco PO 250 QID, Continue PO vancomycin taper for c. difficile. As follows: Vancomycin 125mg PO Q6H x 7 days then Vancomycin 125mg PO Q12H x 7 days then Vancomycin 125mg PO Q24H x 7 days then Vancomycin 125mg PO Q48H x7 days then Vancomycin 125mg PO Q3 days x 14 days. -Cont contact isolation -Reconsulted ID for cdiff DVT prophylaxis: Heparin Discharge Planning Possibly tomorrow Jane Monaco April 28, 2017 11:36
[2017-04-28 12:24] VITALS: BP 151/69; PULSE 63; RESP 20; TEMP 96.1; O2SAT 89
[2017-04-28 13:04] LABS: ANION GAP 10 MEQ/L (5-15); AST (GOT) 24 U/L (15-37); BICARBONATE 20.9 MEQ/L (21.0-32.0); BLOOD UREA NITROGEN 19 MG/DL (7-18); CHLORIDE 114 MEQ/L (98-107); GLOMERULAR FILTRATION RATE 56 ML/MIN (>89); POTASSIUM 4.2 MEQ/L (3.5-5.1); SODIUM (NA) 145 MEQ/L (136-145)
[2017-04-28 13:05] LABS: ALT (GPT) 24 U/L (10-53)
--- NOTE | 2017-04-28 13:05 | HHI.IDPN ---
Note Infectious Disease Note Patient feels okay. Asked to see her again for c. dif. Afebrile. No abdominal pain. Has had one formed BM since yesterday. 3 BM recorded yesterday. PAST MEDICAL HISTORY COPD, hypertension, diabetes mellitus, coronary artery disease, congestive heart failure, gastroesophageal reflux disease, appendectomy, coronary stent, hysterectomy, tonsillectomy, appendectomy, , left wrist ganglion cyst removal. ALLERGIES DARVON. Current Medications Medications (Trade) Dose Ordered Sig/Marie Route PRN Reason Start Time Stop Time Status Last Admin Dose Admin Sodium Chloride (NS Flush) 2 ml UNSCH PRN IV FLUSH FLUSH AFTER USING IV ACCESS 04/24/17 06:45 Sodium Chloride (NS Flush) 2 ml BID IV FLUSH 04/24/17 09:00 04/28/17 09:00 Ondansetron HCl (Zofran Inj) 4 mg Q6H PRN IVP NAUSEA OR VOMITING 04/24/17 06:45 04/24/17 17:42 Acetaminophen (Tylenol) 650 mg Q6H PRN PO FEVER/PAIN SCALE 1 TO 2 04/24/17 06:45 Acetaminophen/ Hydrocodone Bitart ([place] 5-325 Mg) 1 tab Q4H PRN PO PAIN SCALE 3 TO 5 04/24/17 06:45 Acetaminophen/ Hydrocodone Bitart ([place] 10-325 Mg) 1 tab Q4H PRN PO PAIN SCALE 6 TO 10 04/24/17 06:45 04/28/17 06:09 Senna/Docusate Sodium (Jocelyn-Colace) 1 tab BID PO 04/24/17 09:00 04/28/17 09:10 Magnesium Hydroxide (Milk Of Magnesia Liq) 30 ml Q12H PRN PO MILD - MODERATE CONSTIPATION 04/24/17 06:45 Sennosides (Senokot) 17.2 mg Q12H PRN PO MODERATE - SEVERE CONSTIPATION 04/24/17 06:45 Bisacodyl (Dulcolax Supp) 10 mg DAILY PRN RECTAL SEVERE CONSITIPATION 04/24/17 06:45 Lactulose (Lactulose Liq) 30 ml DAILY PRN PO SEVERE CONSITIPATION 04/24/17 06:45 Sodium Hypochlorite (Dakin'S 0.125% Soln) 500 ml DAILY TOPICAL 04/24/17 12:00 04/28/17 09:00 Aspirin (Aspirin Chew) 81 mg DAILY CHEW 04/25/17 09:00 04/28/17 09:10 Isosorbide Mononitrate (Imdur) 30 mg DAILY PO 04/25/17 09:00 04/28/17 09:10 Prasugrel (Effient) 10 mg DAILY PO 04/25/17 09:00 Hold 04/25/17 08:40 Pravastatin Sodium (Pravachol) 40 mg DAILY PO 04/25/17 09:00 04/28/17 09:10 Heparin Sodium (Porcine) (Heparin Inj) 5,000 units Q12HR SQ 04/24/17 21:00 04/28/17 09:11 Dextrose (D50w (Vial) Inj) 50 ml UNSCH PRN IV HYPOGLYCEMIA-SEE COMMENTS 04/26/17 01:00 Glucagon (Glucagon Inj) 1 mg UNSCH PRN OTHER HYPOGLYCEMIA-SEE COMMENTS 04/26/17 01:00 Amlodipine Besylate (Norvasc) 10 mg DAILY PO 04/26/17 09:00 04/28/17 09:10 Furosemide (Lasix) 40 mg DAILY PO 04/26/17 09:00 04/28/17 09:10 Lisinopril (Prinivil) 20 mg DAILY PO 04/26/17 09:00 04/28/17 09:10 Metoprolol Tartrate (Lopressor) 50 mg BID PO 04/26/17 09:00 04/28/17 09:10 Spironolactone (Aldactone) 25 mg DAILY PO 04/26/17 09:00 04/28/17 09:10 Vancomycin HCl (VANCOMYCIN for oral use only) 250 mg QID PO 04/27/17 09:00 04/28/17 11:37 Insulin Detemir (Levemir Inj) 5 units DAILY SQ 04/28/17 11:00 04/28/17 11:36 OBJECTIVE: Vital Signs Date Time Temp Pulse Resp B/P Pulse Ox O2 Delivery O2 Flow Rate FiO2 04/28/17 12:24 96.1 63 20 151/69 89 04/28/17 08:00 96.7 64 20 167/70 93 04/28/17 06:45 97.8 69 20 160/70 94 04/28/17 00:00 98.5 70 18 170/74 92 04/27/17 21:00 56 04/27/17 20:00 98.5 72 22 168/72 96 04/27/17 18:01 Nasal Cannula 2.00 04/27/17 16:15 97.5 70 18 146/67 94 04/27/17 04/27/17 04/28/17 15:00 23:00 07:00 Intake Total 480 ml Balance 480 ml Intake Oral 480 ml # Voids 3 1 # Bowel Movements 2 1 Laboratory Tests Test 04/28/17 07:40 White Blood Count 4.6 TH/MM3 Red Blood Count 2.83 MIL/MM3 Hemoglobin 8.3 GM/DL Hematocrit 25.9 % Mean Corpuscular Volume 91.7 FL Mean Corpuscular Hemoglobin 29.5 PG Mean Corpuscular Hemoglobin 32.1 % Concent Red Cell Distribution Width 17.6 % Platelet Count 248 TH/MM3 Mean Platelet Volume 8.3 FL Neutrophils (%) (Auto) 49.9 % Lymphocytes (%) (Auto) 33.4 % Monocytes (%) (Auto) 11.0 % Eosinophils (%) (Auto) 4.6 % Basophils (%) (Auto) 1.1 % Neutrophils # (Auto) 2.3 TH/MM3 Lymphocytes # (Auto) 1.5 TH/MM3 Monocytes # (Auto) 0.5 TH/MM3 Eosinophils # (Auto) 0.2 TH/MM3 Basophils # (Auto) 0.1 TH/MM3 CBC Comment DIFF FINAL Differential Comment Microbiology Date/Time Procedure Status Source Growth 04/26/17 11:10 Gram Stain - Final Resulted Wound Leg 04/26/17 11:10 Wound Culture - Preliminary Resulted S. Aureus Mrsa PHYSICAL EXAMINATION GENERAL: no acute distress. Awake and alert and oriented. HEENT: No icterus. LUNGS: Clear breath sounds which are diminished at the bases. HEART: Regular rate and rhythm without murmurs, rubs or gallops. ABDOMEN: Bowel sounds present, soft, no tenderness appreciated. EXTREMITIES: The right tibia ulceration with good beefy granulation tissue. NEURO: Nonfocal. SKIN: No diffuse rash. PSYCH: Calm and cooperative. IMPRESSION 1. 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 The patient has been undergoing hyperbaric oxygen treatment under supervision of podiatry. Culture has MRSA. Probable colonization. 2. C-difficile infection recurrent. RECOMMENDATIONS 1. Bactroban ointment to the R. tibia wound bid. 2. Follow up with wound care center. 3. Continue PO vancomycin taper for c. difficile. As follows: Vancomycin 125mg PO Q6H x 7 days then Vancomycin 125mg PO Q12H x 7 days then Vancomycin 125mg PO Q24H x 7 days then Vancomycin 125mg PO Q48H x 7 days then Vancomycin 125mg PO Q3 days x 14. Can be discharged from my standpoint. Asa Hooks MD April 28, 2017 13:05
[2017-04-28 13:08] LABS: ALKALINE PHOSPHATASE 137 U/L (45-117); TOTAL BILIRUBIN ADULT 0.2 MG/DL (0.2-1.0); TRANSFERRIN IRON PROFILE 135 MG/DL (200-360)
[2017-04-28 13:11] LABS: FERRITIN 551 NG/ML (8-252)
[2017-04-28] MEDS: MUPIROCIN 2% OINT 22 GM TUBE TOPICAL SCH ×2 (14:00→23:12)
[2017-04-28] MEDS ORDERED: VANC125C3 PO (14:59)
[2017-04-28 15:58] VITALS: BP 133/60; PULSE 64; RESP 19; TEMP 96.1; O2SAT 92
[2017-04-28 21:19] VITALS: BP 179/79; PULSE 63; RESP 18; TEMP 97.7; O2SAT 92
[2017-04-29] VITALS (7 sets, daily range): BP systolic 130–186; BP diastolic 59–81; PULSE 58–71; RESP 16–20; TEMP 97.4–98.8; O2SAT 90–92
[2017-04-29] MEDS: INSULIN ASPART SUPPLEMENTAL SCALE SQ SCH ×3 (06:28→16:00)
[2017-04-29] MEDS: ACETAMINOPHEN/HYDROcodone 325 MG/10 MG TAB PO PRN (06:31)
[2017-04-29] MEDS: VANCOMYCIN 500 MG VIAL (FOR ORAL USE ONLY) PO SCH ×3 (08:49→17:00)
[2017-04-29] MEDS: HEPARIN SODIUM - SQ 10,000 UNITS/ML VIAL SQ SCH (08:51)
[2017-04-29] MEDS: SPIRONOLACTONE 25 MG TAB PO SCH (08:52)
[2017-04-29] MEDS: ISOSORBIDE MONONITRATE 30 MG TAB PO SCH (08:52)
[2017-04-29] MEDS: FUROSEMIDE 40 MG TAB PO SCH (08:52)
[2017-04-29] MEDS: PRAVASTATIN SOD 40 MG TAB PO SCH (08:53)
[2017-04-29] MEDS: ASPIRIN 81 MG CHEW TAB CHEW SCH (08:53)
[2017-04-29] MEDS: METOPROLOL TARTRATE 50 MG TAB PO SCH (08:53)
[2017-04-29] MEDS: DOCUSATE SODIUM 50 MG/SENNA 8.6 MG TAB PO SCH (08:54)
[2017-04-29] MEDS: LISINOPRIL 20 MG TAB PO SCH (08:54)
[2017-04-29] MEDS: SODIUM CHLORIDE 0.9% FLUSH 10 ML FLUSH IV FLUSH SCH (09:00)
[2017-04-29] MEDS: INSULIN DETEMIR 100 UNITS/ML VIAL SQ SCH (09:00)
[2017-04-29] MEDS: MUPIROCIN 2% OINT 22 GM TUBE TOPICAL SCH ×2 (09:00→12:04)
[2017-04-29] MEDS: SODIUM HYPOCHLORITE 0.125% 500 ML BTL TOPICAL SCH (09:11)
[2017-04-29] MEDS ORDERED: MUPI2OIN TOPICAL (14:14)
[2017-04-29] MEDS ORDERED: NOVOLOGSS SQ ×2 (14:21→14:24)
[2017-04-29] MEDS ORDERED: HYDR-3583 PO (14:21)
[2017-04-29] MEDS ORDERED: LEVEMIR SQ (14:21)
[2017-04-29] MEDS ORDERED: VANC125C3 PO (14:24)
--- NOTE | 2017-04-29 14:28 | HHI.DCPOC ---
Discharge Care Plan Diagnosis: (1) Clostridium difficile colitis (2) Dog bite of multiple sites of right lower extremity (3) Hypoglycemia (4) CONOR (acute kidney injury) Goals to Promote Your Health * To prevent worsening of your condition and complications * To maintain your health at the optimal level Directions to Meet Your Goals Take your medications as prescribed Follow your dietary instruction Follow activity as directed Keep your appointments as scheduled Take your immunizations and boosters as scheduled If your symptoms worsen call your PCP, if no PCP go to Urgent Care Center or Emergency Room Smoking is Dangerous to Your Health. Avoid second hand smoke Call the 24-hour hour crisis hotline for domestic abuse at Jane Monaco Apr 29, 2017 14:28
--- NOTE | 2017-04-29 14:42 | HHI.DS ---
cc: Ilsa Treviño; Je Read DPM Discharge Summary Admission Date April 24, 2017 at 06:22 Discharge Date: Apr 29, 2017 Admitting Diagnosis hypoglycemia, dehydration, hypothermia, altered mental status (1) Dog bite of multiple sites of right lower extremity ICD Code: S81.851A Diagnosis: Principal (2) CONOR (acute kidney injury) ICD Code: N17.9 Diagnosis: Principal (3) Clostridium difficile colitis ICD Code: A04.7 Diagnosis: Secondary (4) Hypoglycemia ICD Code: E16.2 Diagnosis: Principal (5) Pleural effusion, left ICD Code: J90 Diagnosis: Principal Procedures none Brief History - From Admission 66-year-old female with a past medical history of DM, COPD, HTN, CAD, CHF, GERD who presented for hypoglycemia. The patient states that she was in her normal state of health last night when she went to bed. The patient states that she woke up on the floor with the paramedics around her. She states her blood sugar was 23 at the time. She states that she was recently at rehabilitation, and had been having low sugars at night and there. She states when she woke up today she had decreased energy, was sweaty, nausea, dry heaving. She reports that she's been having normal intake. She denies any recent medication changes. She denies any fever, chills, chest pain, constipation, diarrhea. She is a little short of breath, reports a history of COPD and pleural effusions. She has a chronic right lower extremity the wound that was followed by Dr. Read, which she states is decreasing in size. CBC/BMP: 04/28/17 0740 04/28/17 0740 Significant Findings Laboratory Tests Test 04/26/17 04/28/17 17:44 07:40 Pleural Fluid WBC 284 /MM3 (0-10) Pleural Fluid RBC 128 /MM3 (0-0) Red Blood Count 2.83 MIL/MM3 (4.00-5.30) Hemoglobin 8.3 GM/DL (11.6-15.3) Hematocrit 25.9 % (35.0-46.0) Red Cell Distribution Width 17.6 % (11.6-17.2) Monocytes (%) (Auto) 11.0 % (0.0-8.0) Eosinophils (%) (Auto) 4.6 % (0.0-4.0) Chloride Level 114 MEQ/L (98-107) Carbon Dioxide Level 20.9 MEQ/L (21.0-32.0) Blood Urea Nitrogen 19 MG/DL (7-18) Estimat Glomerular Filtration 56 ML/MIN (>89) Rate Random Glucose 190 MG/DL (74-106) Total Iron Binding Capacity 189 MCG/DL (250-450) Ferritin 551 NG/ML (8-252) Alkaline Phosphatase 137 U/L (45-117) Total Protein 5.1 GM/DL (6.4-8.2) Albumin 1.8 GM/DL (3.4-5.0) PE at Discharge GENERAL: Well-developed well-nourished. In no acute distress. SKIN: Warm and dry. Right del cid/ ankle wound, slowly improving, un approximated , slough present on some parts of wound bed. HEENT: Normocephalic. Pupils equal and round. Mucous membranes pink and moist. CARDIOVASCULAR: Regular rate and rhythm. No murmur appreciated. RESPIRATORY: No accessory muscle use. Diminished breath sounds decreased in the bases. RM GASTROINTESTINAL: Abdomen soft, non-tender, nondistended. Bowel sounds x4. MUSCULOSKELETAL: Right ankle/del cid ulcer as above. No clubbing or cyanosis. Trace edema. DP pulses are faintly palpable. NEUROLOGICAL: Awake and alert. No focal neurological deficits. Moves upper and lower extremities spontaneously. Normal speech. PSYCHIATRIC: Appropriate mood and affect; insight and judgment normal. Hospital Course 66-year-old female with a past medical history of DM, COPD, HTN, CAD, CHF, GERD who presented for hypoglycemia Hypoglycemia with diabetes mellitus: With associated hypothermia. Presented with blood glucose 43. Improved was treated with D10. TSH and cortisol within normal limits. Hemoglobin A1c 6.4. BS controlled below 190 once start on Lantus. Cont Lantus 5 Units daily. Placed patient on low dose sliding scale and will discharge on low dose. Patient educated about low dose sliding scale and to cont to Monitor Accu-Cheks at home. Will need to follow up with primary care to adjust insulin doses. Patient verbalizes understanding. Chronic right lower extremity ulcer: Slow healing after a dog bite. Afebrile with no leukocytosis. Has some slough in parts of wound bed. Was treated with dakins solution while in hospital, evaluated by wound care and infectious disease. Culture grew MRSA and will be treated outpatient with Bactroban BID and cover with gauze. Follow up with wound care center and podiatry. Patient follows with Dr. Read. Cleared from ID standpoint. Will need home health at discharge for wound care. Patient verbalizes understanding. Pleural effusion: Chest x-ray with bilateral pulmonary edema and pleural effusions, patient has history of the same. Reviewed previous imaging and thoracentesis studies. BNP is slightly elevated from previous. Thoracentesis with cytology pending today. Supplemental oxygen as needed. Daily PT. Currently weaned off o2. Patient developed diarrhea while in hospital, Culture was sent, C diff positive , ID was consulted and ID recommended Vanco PO 250 QID, Continue PO vancomycin taper for c. difficile. As follows: Vancomycin 125mg PO Q6H x 7 days then Vancomycin 125mg PO Q12H x 7 days then Vancomycin 125mg PO Q24H x 7 days then Vancomycin 125mg PO Q48H x7 days then Vancomycin 125mg PO Q3 days x 14 days. Discussed with patient in length the importance of completing treatment and washing hands. Patient verbalizes understanding. Patient is stable for discharge, instructed on medications, treatment plan, and wound care. Patient verbalizes understanding. Patient will be discharged home with home health for wound care, medication education and physical therapy. Pt Condition on Discharge: Stable Discharge Disposition: Disch w/ Home Health Serv Discharge Time: > 30 minutes Discharge Instructions DIET: Follow Instructions for: Diabetic Diet Activities you can perform: Regular-No Restrictions Follow up Referrals: PCP Follow-up - 2-3 Days Podiatry - 1 Week Wound Care Clinic - 1 Week New Orders: Physical Therapy New Medications: Vancomycin (Vancomycin) 125 Mg Cap 125 MG PO QID 125mg PO Q6H x 7 days;125mg PO Q12H x 7 days; 125mg PO Q24H x 7 days; 125mg PO Q48H x 7 days; 125mg PO Q3 days x 14 days. Infection #57 Ref 0 CAP Hydrocodone-Acetaminophen (Hydrocodone-Acetaminophen) 10-325 mg Tab 1 TAB PO Q4H PRN PAIN SCALE 6 TO 10 #15 Ref 0 TAB Insulin Aspart Inj (Novolog Inj) 100 Unit/Ml Inj 1 UNITS SQ ACHS SLIDING SCALE Sliding Scale As Directed.150-199 1 Unit; 200- 249 3 units; 250-299 5 Units; 300-349 7 Units; Blood Sugar Management Days 30 INJECTION Insulin Detemir Inj (Levemir Inj) 1,000 unit/ 10 ML Vial 5 UNITS SQ DAILY Blood Sugar Management Days 30 INJECTION Mupirocin Topical (Mupirocin Topical) 2 % Oint 1 APPLIC TOPICAL Q12HR Infection Days 30 Ref 0 TUBE Continued Medications: Amlodipine (Norvasc) 10 Mg Tab 10 MG PO DAILY Blood Pressure Management #30 Ref 0 TAB Aspirin (Aspirin) 81 Mg Chew 81 MG CHEW DAILY Ref 0 TAB Folic Acid (Folic Acid) 800 Mcg Tab 1600 MCG PO DAILY Nutritional Supplement Ref 0 TAB Furosemide (Furosemide) 40 Mg Tab 40 MG PO DAILY edema #14 TAB Gabapentin (Gabapentin) 100 Mg Cap 100 MG PO TID neuropathy #60 CAP Hydrocodone-Acetaminophen (Hydrocodone-Acetaminophen) 5-325 mg Tab 1 TAB PO Q6H PRN PAIN #10 Ref 0 TAB Hydrocodone-Acetaminophen ([place]) 5-325 mg Tab 1 TAB PO Q6H PRN PAIN #20 Ref 0 TAB Isosorbide Mononitrate ER (Isosorbide Mononitrate ER) 30 Mg [place] 30 MG PO DAILY Prevent Chest Pain #30 Ref 0 TAB Lisinopril (Lisinopril) 20 Mg Tab 20 MG PO DAILY #30 Ref 0 TAB Metoprolol Tartrate (Metoprolol Tartrate) 50 Mg Tab 50 MG PO BID #60 Ref 0 TAB Nitroglycerin SL (Nitroglycerin SL) 0.4 Mg Subl 0.4 MG SL DIRECTED ONE TABLET UNDER THE TONGUE NEEDED FOR CHEST PAIN, MAY REPEAT EVERY FIVE MINUTES FOR A TOTAL OF 3 DOSES OR CALL 911 IF NO RELIEF PRN CHEST PAIN #100 Ref 0 TAB.SL Prasugrel (Effient) 10 Mg Tab 10 MG PO DAILY Blood Clot Prevention #30 Ref 0 TAB Pravastatin (Pravastatin) 40 Mg Tab 40 MG PO DAILY Cholesterol Management #30 Ref 0 TAB Ranitidine (Ranitidine) 150 Mg Cap 150 MG PO DAILY PRN REFLUX #30 Ref 0 CAP Spironolactone (Spironolactone) 25 Mg Tab 25 MG PO DAILY #30 Ref 0 TAB Zinc Gluconate (Zinc) 50 Mg Tab 50 MG PO DAILY Discontinued Medications: Insulin Aspart Inj (Novolog Inj) 1,000 Unit/10 Ml Vial Unknown Dose SQ ACHS Sliding Scale as directed. Blood Sugar Management #10 Ref 0 ML Insulin Detemir Inj (Levemir Inj) 1,000 unit/ 10 ML Vial 6 UNITS SQ DAILY Blood Sugar Management #30 Ref 0 INJECTION Sennosides-Docusate Sodium (Jocelyn-Colace) 8.6-50 Mg Tab 2 TAB PO DAILY Constipation #60 Ref 0 TAB Additional Information Bactroban BID apply to r leg and cover with Jane Silveira Apr 29, 2017 14:42
== END 2017-04-29 17:13 | disposition home health service (06) | DRG 638 ==
LOC: NEPE 04:00 → NEDA 06:22 → N06A 12:08 → N05B 18:41
PROVIDERS: ADMIT Internal Medicine; ATTEND Internal Medicine
PROC: 0W9B3ZX Drainage of Left Pleural Cavity, Percutaneous Approach, Diagnostic (ICD-10-PCS; principal; 2017-04-25)
DX: E11.649 Type 2 diabetes mellitus with hypoglycemia without coma (principal); I50.32 Chronic diastolic (congestive) heart failure; L97.919 Non-pressure chronic ulcer of unspecified part of right lower leg with unspecified severity; N17.9 Acute kidney failure, unspecified; A04.7 Enterocolitis due to Clostridium difficile; I11.0 Hypertensive heart disease with heart failure; D50.9 Iron deficiency anemia, unspecified; F12.90 Cannabis use, unspecified, uncomplicated; L97.319 Non-pressure chronic ulcer of right ankle with unspecified severity; E87.1 Hypo-osmolality and hyponatremia; Z68.41 Body mass index [BMI] 40.0-44.9, adult; E87.8 Other disorders of electrolyte and fluid balance, not elsewhere classified; D46.9 Myelodysplastic syndrome, unspecified; J44.9 Chronic obstructive pulmonary disease, unspecified; M19.90 Unspecified osteoarthritis, unspecified site; J45.909 Unspecified asthma, uncomplicated; I25.10 Atherosclerotic heart disease of native coronary artery without angina pectoris; S91.051D Open bite, right ankle, subsequent encounter; S81.851D Open bite, right lower leg, subsequent encounter; W54.0XXD Bitten by dog, subsequent encounter; K21.9 Gastro-esophageal reflux disease without esophagitis; I25.2 Old myocardial infarction; Z95.5 Presence of coronary angioplasty implant and graft; Z87.891 Personal history of nicotine dependence; Z79.4 Long term (current) use of insulin; E86.0 Dehydration; K44.9 Diaphragmatic hernia without obstruction or gangrene; E66.9 Obesity, unspecified
CPT/HCPCS: 32555; 71010; 76937; 80053; 82465; 82533; 82728; 82948; 83036; 83540; 83550; 83605; 83615; 83880; 84157; 84443; 85025; 85610; 86403; 86850; 86900; 86901; 87040; 87070; 87147; 87186; 87205; 87493; 88112; 88305; 89051; 93005; 96360; 96365; C1729; J1644; J1815; J2405; J7030; J7070

== ENCOUNTER 2017-06-14 00:58 | Emergency (ER) | payer MEDICARE, BC ==
[~2017-06-14] VITALS: Ht 162.6 cm; Wt 71.7 kg
[~2017-06-14 00:58] MED LIST changes: +AUGM500T7 PO; -CYAN5SUB PO; +HYDR-3583 PO; -LEVO500T3 PO; -NOVOLOGP2 SQ; +NOVOLOGSS SQ; -PERI8.6T PO
[2017-06-14 01:12] VITALS: BP 123/68; PULSE 61; RESP 14; TEMP 99; O2SAT 95
[2017-06-14] MEDS ORDERED: LIDOCAINE 1%/EPINEPHrine 1:100,000 SOLN 20 ML VIAL INFIL ONE (03:00)
[2017-06-14] MEDS ORDERED: LIDOCAINE 1%/EPINEPHrine 1:100,000 SOLN 30 ML VIAL INFIL ONE (03:00)
[2017-06-14] MEDS ORDERED: HYDROmorphone HCL PF 1 MG/ML VIAL SQ ONE (03:00)
--- NOTE | 2017-06-14 03:30 | PD ---
HPI Chief Complaint: Skin Problem Time Seen by Provider: 02:51 Travel History International Travel<30 days: No Contact w/Intl Traveler<30days: No Traveled to known affect area: No History of Present Illness HPI This 66-year-old woman who presents to the emergency department complaining of abscess on her right buttock this ongoing for the past 3 days. She gets frequent skin infections but no loss she had one this bad. Scattered more painful red and swollen. No drainage. She is a history diabetes CAD as well as an adrenal mass. No fevers. No other complaints. She does states she's felt sick recently with some chills but no definite fevers. 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 Reported Meds & Prescriptions Reported Meds & Active Scripts Active Augmentin (Amoxicillin-Clavulanate) 500-125 mg Tab 500 Mg PO BID Novolog Inj (Insulin Aspart) 100 Unit/Ml Inj 1 Units SQ ACHS SLIDING SCALE 30 Days Sliding Scale As Directed.150-199 1 Unit; 200-249 3 units; 250-299 5 Units; 300-349 7 Units; Hydrocodone-Acetaminophen 10-325 mg Tab 1 Tab PO Q4H PRN Levemir Inj (Insulin Detemir) 1,000 unit/ 10 ML Vial 5 Units SQ DAILY 30 Days Gabapentin 100 Mg Cap 100 Mg PO TID Furosemide 40 Mg Tab 40 Mg PO DAILY Norvasc (Amlodipine Besylate) 10 Mg Tab 10 Mg PO DAILY Reported Zinc (Zinc Gluconate) 50 Mg Tab 50 Mg PO DAILY Nitroglycerin SL (Nitroglycerin) 0.4 Mg Subl 0.4 Mg SL DIRECTED PRN ONE TABLET UNDER THE TONGUE NEEDED FOR CHEST PAIN, MAY REPEAT EVERY FIVE MINUTES FOR A TOTAL OF 3 DOSES OR CALL 911 IF NO RELIEF Isosorbide Mononitrate ER (Isosorbide Mononitrate) 30 Mg Abbey 30 Mg PO DAILY Spironolactone 25 Mg Tab 25 Mg PO DAILY Pravastatin 40 Mg Tab 40 Mg PO DAILY Ranitidine (Ranitidine HCl) 150 Mg Cap 150 Mg PO DAILY PRN Metoprolol Tartrate 50 Mg Tab 50 Mg PO BID Lisinopril 20 Mg Tab 20 Mg PO DAILY Folic Acid 800 Mcg Tab 1,600 Mcg PO DAILY Effient (Prasugrel) 10 Mg Tab 10 Mg PO DAILY Aspirin 81 Mg Chew 81 Mg CHEW DAILY Review of Systems Except as stated in HPI: all other systems reviewed are Neg Physical Exam Narrative GENERAL: Well-appearing 66 year-old woman, no acute distress. SKIN: Warm and dry. CARDIOVASCULAR: Warm and well perfused. RESPIRATORY: Normal rate and effort. MUSCULOSKELETAL: Abscess in the right buttock and the rectum. There is normal skin between the abscess and indurated area in the rectum. The entire area of induration or redness is probably about 4 x 6 cm. Central area of induration and fluctuance. NEUROLOGICAL: Awake and alert. No gross deficits. Data Data Last Documented VS Vital Signs Date Time Temp Pulse Resp B/P Pulse Ox O2 Delivery O2 Flow Rate FiO2 06/14/17 01:12 99.0 61 14 123/68 95 Orders Hydromorphone Pf Inj (Dilaudid Pf Inj) (06/14/17 03:00) Lidocai-Epi 1%-1:100,000 Inj (Xylocaine- (06/14/17 03:00) MDM Medical Decision Making Medical Screen Exam Complete: Yes Emergency Medical Condition: Yes Differential Diagnosis Abscess, infection, other Narrative Course Medical decision-making new para 66 year-old woman the abscess on her right buttock. This was I&D to the bedside. Patient tolerated well. She's on Augmentin already for a leg wound. Given that we were able to perform the I&D, I'm not can add a new antibiotic at this time. Procedures Procedure Narrative INCISION AND DRAINAGE OF ABSCESS: The area was prepped and was sterilely draped. A subcutaneous wheal of % Xylocaine 1 with a total number 5 mL was used to anesthetize the area. The area was properly anesthetized. A number 11 scalpel was used to make a 1-cm incision across the area of the abscess. Cultures were obtained. The abscess was drained.. Quarter inch iodoform packing was placed in the wound. Sterile dressing applied. Patient advised to have packing removed in two days. Diagnosis Primary Impression: Abscess of right buttock Additional Instructions: Follow-up with your primary doctor in your wound care doctor. Apply moist heat to the area 4 times daily. This can be done with a warm washcloth. Remove wick in 48 hours. Return to the emergency department for any new or worsening symptoms. Med/Other Pt SpecificInfo: No Change to Meds Disposition: 01 DISCHARGE HOME Condition: Stable Bradley Laurent MD Jun 14, 2017 03:30
[2017-06-14 03:31] VITALS: RESP 19
[2017-06-24] MEDS ORDERED: DOXY100C PO (13:52)
[2017-06-24] MEDS ORDERED: BACT800T5 PO (13:52)
== END 2017-06-14 03:52 | disposition home or self-care (01) ==
LOC: PHED 00:58
DX: L02.31 Cutaneous abscess of buttock (principal); E11.59 Type 2 diabetes mellitus with other circulatory complications; Z79.4 Long term (current) use of insulin; Z79.82 Long term (current) use of aspirin
CPT/HCPCS: 10061; 87070; 96372; 99284; J1170

== ENCOUNTER 2017-07-15 11:52 | Inpatient (IN) | payer MEDICARE, BC ==
[2017-07-15] VITALS (7 sets, daily range): BP systolic 106–156; BP diastolic 51–76; PULSE 77–85; RESP 14–18; TEMP 95.4–98.2; O2SAT 98–100
[~2017-07-15] VITALS: Ht 162.6 cm; Wt 78.0 kg
[~2017-07-15 11:52] MED LIST changes: -AUGM500T7 PO; -HYDR-3516 PO; -NORC5TAB PO
[2017-07-15] MEDS ORDERED: SODIUM CHLOR 0.9% 1000 ML INJ 1,000 ML IV ONE ×4 (13:54→15:30)
[2017-07-15] MEDS ORDERED: PIPERACIL-TAZO 4.5 GM PREMIX 100 ML IV STA (13:54)
[2017-07-15] MEDS ORDERED: SODIUM CHLOR 0.9% 1000 ML INJ 800 ML IV ONE (13:54)
[2017-07-15] MEDS ORDERED: VANCOMYCIN INJ 1,000 MG in SODIUM CHLOR 0.9% 250 ML INJ 250 ML IV STA (13:54)
--- NOTE | 2017-07-15 13:59 | PD ---
Data Data Last Documented VS Vital Signs Date Time Temp Pulse Resp B/P Pulse Ox O2 Delivery O2 Flow Rate FiO2 07/15/17 17:14 96.8 85 18 131/73 100 Room Air Orders Electrocardiogram (07/15/17 13:54) Ammonia (07/15/17 13:54) Complete Blood Count With Diff (07/15/17 13:54) Comprehensive Metabolic Panel (07/15/17 13:54) Creatine Kinase (Cpk) (07/15/17 13:54) Prothrombin Time / Inr (Pt) (07/15/17 13:54) Act Partial Throm Time (Ptt) (07/15/17 13:54) Troponin I (07/15/17 13:54) Thyroid Stimulating Hormone (07/15/17 13:54) Urinalysis - C+S If Indicated (07/15/17 13:54) Lactic Acid Sepsis Protocol (07/15/17 13:54) Arterial Blood Gas (Abg) (07/15/17 13:54) Blood Culture (07/15/17 13:54) Chest, Single Ap (07/15/17 13:54) Ct Brain W/O Iv Contrast(Rout) (07/15/17 13:54) Blood Glucose (07/15/17 13:54) Ecg Monitoring (07/15/17 13:54) Iv Access Insert/Monitor (07/15/17 13:54) Oximetry (07/15/17 13:54) Oxygen Administration (07/15/17 13:54) Urinary Catheter Insert/Apply (07/15/17 13:54) Sodium Chloride 0.9% Flush (Ns Flush) (07/15/17 14:00) Drug Screen, Random Urine (07/15/17 13:54) Alcohol (Ethanol) (07/15/17 13:54) Vancomycin Inj (Vancomycin Inj) (07/15/17 13:54) Piperacil-Tazo 4.5 Gm Premix (Zosyn 4.5 (07/15/17 13:54) Sodium Chlor 0.9% 1000 Ml Inj (Ns 1000 M (07/15/17 13:54) Sodium Chlor 0.9% 1000 Ml Inj (Ns 1000 M (07/15/17 13:54) Sodium Chlor 0.9% 1000 Ml Inj (Ns 1000 M (07/15/17 14:15) Beta Hydroxybutyrate (Acetone) (07/15/17 14:17) Sodium Chlor 0.9% 1000 Ml Inj (Ns 1000 M (07/15/17 14:30) Insulin Regular (Iv Infusion) (Novolin R (07/15/17 14:30) Sodium Bicarbonate 8.4% Inj (Sodium Bica (07/15/17 14:30) Diet Npo (07/15/17 Dinner) Sodium Chlor 0.9% 1000 Ml Inj (Ns 1000 M (07/15/17 14:27) Dext 5%-Nacl 0.9% 1000 Ml Inj (D5w-Ns 10 (07/15/17 14:27) Potassium Chlor 40 Meq Premix (Kcl 40 Me (07/15/17 14:30) Potassium Chlor 40 Meq Premix (Kcl 40 Me (07/15/17 14:30) Potassium Chlor 20 Meq Premix (Kcl 20 Me (07/15/17 14:30) Potassium Chlor 20 Meq Premix (Kcl 20 Me (07/15/17 14:30) Potassium Chlor 20 Meq Premix (Kcl 20 Me (07/15/17 14:30) Potassium Chlor 20 Meq Premix (Kcl 20 Me (07/15/17 14:30) Potassium Chlor 20 Meq Premix (Kcl 20 Me (07/15/17 14:30) Potassium Chlor 20 Meq Premix (Kcl 20 Me (07/15/17 14:30) Sodium Bicarbonate 8.4% Inj (Sodium Bica (07/15/17 14:30) Sodium Bicarbonate 8.4% Inj (Sodium Bica (07/15/17 14:30) Sodium Phosphate Inj (Sodium Phosphate I (07/15/17 14:30) Hemoglobin (Hgb) A1c (07/15/17 14:27) Basic Metabolic Panel (Bmp) (07/15/17 19:27) Basic Metabolic Panel (Bmp) (07/16/17 01:27) Basic Metabolic Panel (Bmp) (07/16/17 07:27) Basic Metabolic Panel (Bmp) (07/16/17 13:27) Magnesium (Mg) (07/15/17 19:27) Magnesium (Mg) (07/16/17 01:27) Magnesium (Mg) (07/16/17 07:27) Magnesium (Mg) (07/16/17 13:27) Phosphorus (Po4) (07/15/17 19:27) Phosphorus (Po4) (07/16/17 01:27) Phosphorus (Po4) (07/16/17 07:27) Phosphorus (Po4) (07/16/17 13:27) Beta Hydroxybutyrate (Acetone) (07/16/17 01:27) Beta Hydroxybutyrate (Acetone) (07/16/17 13:27) Magnesium (Mg) (07/15/17 14:48) Phosphorus (Po4) (07/15/17 14:48) CKMB (07/15/17 14:10) CKMB% (07/15/17 14:10) Aspirin Supp (Aspirin Supp) (07/15/17 15:30) Sodium Chlor 0.9% 1000 Ml Inj (Ns 1000 M (07/15/17 15:30) Basic Metabolic Panel (Bmp) (07/15/17 17:19) Ckmb (Isoenzyme) Profile (07/15/17 17:21) Troponin I (07/15/17 17:21) Electrocardiogram (07/15/17 17:42) Consult Cardiology (07/15/17 ) Aspirin (Aspirin) (07/15/17 20:00) Metoprolol Tartrate (Lopressor) (07/15/17 21:00) Prasugrel (Effient) (07/16/17 09:00) Pravastatin (Pravachol) (07/16/17 09:00) Admit Order (Ed Use Only) (07/15/17 17:54) CKMB (07/15/17 17:24) CKMB% (07/15/17 17:24) Labs Laboratory Tests Test 07/15/17 07/15/17 07/15/17 07/15/17 14:05 14:10 14:13 17:24 Blood Gas Puncture Site RT RADIAL Blood Gas Patient Temperature 98.6 Blood Gas HCO3 3 mmol/L Blood Gas Base Excess -25.9 mmol/L Blood Gas Oxygen Saturation 95 % Arterial Blood pH 7.11 Arterial Blood Partial 9 mmHg Pressure CO2 Arterial Blood Partial 134 mmHG Pressure O2 Arterial Blood Oxygen Content 14.4 Vol % Arterial Blood 1.8 % Carboxyhemoglobin Arterial Blood Methemoglobin 1.1 % Blood Gas Hemoglobin 10.6 G/DL Oxygen Delivery Device RA Blood Gas Inspired Oxygen 21 % Urine Color LIGHT-YELLOW Urine Turbidity HAZY Urine pH 5.5 Urine Specific [place] 1.020 Urine Protein 100 mg/dL Urine Glucose (UA) 1000 mg/dL Urine Ketones 80 mg/dL Urine Occult Blood SMALL Urine Nitrite NEG Urine Bilirubin NEG Urine Urobilinogen LESS THAN 2.0 MG/DL Urine Leukocyte Esterase NEG Urine RBC 1 /hpf Urine WBC LESS THAN 1 /hpf Urine Amorphous Sediment MOD Microscopic Urinalysis Comment CATH-CULT NOT IND Sodium Level 131 MEQ/L 136 MEQ/L Potassium Level 5.5 MEQ/L 4.6 MEQ/L Chloride Level 93 MEQ/L 99 MEQ/L Carbon Dioxide Level 5.3 MEQ/L 7.3 MEQ/L Anion Gap 33 MEQ/L 30 MEQ/L Blood Urea Nitrogen 57 MG/DL 55 MG/DL Creatinine 2.51 MG/DL 2.43 MG/DL Estimat Glomerular Filtration 19 ML/MIN 20 ML/MIN Rate Random Glucose 1065 MG/DL 895 MG/DL Lactic Acid Level 1.6 mmol/L Calcium Level 8.9 MG/DL 8.2 MG/DL Phosphorus Level 5.8 MG/DL Magnesium Level 2.6 MG/DL Total Bilirubin 0.4 MG/DL Aspartate Amino Transf 26 U/L (AST/SGOT) Alanine Aminotransferase 18 U/L (ALT/SGPT) Alkaline Phosphatase 172 U/L Ammonia LESS THAN 10 MCMOL/L Total Creatine Kinase 332 U/L 449 U/L Creatine Kinase MB 14.7 NG/ML 19.2 NG/ML Creatine Kinase MB % 4.4 % 4.3 % Troponin I 0.52 NG/ML 0.89 NG/ML Total Protein 5.9 GM/DL Albumin 2.2 GM/DL Thyroid Stimulating Hormone 1.130 uIU/ML 3rd Gen Urine Opiates Screen NEG Urine Barbiturates Screen NEG Urine Amphetamines Screen NEG Urine Benzodiazepines Screen NEG Urine Cocaine Screen NEG Urine Cannabinoids Screen POS Ethyl Alcohol Level LESS THAN 3 MG/DL B-Hydroxybutyrate 17.72 MMOL/L White Blood Count 21.9 TH/MM3 Red Blood Count 3.48 MIL/MM3 Hemoglobin 9.9 GM/DL Hematocrit 33.1 % Mean Corpuscular Volume 95.3 FL Mean Corpuscular Hemoglobin 28.6 PG Mean Corpuscular Hemoglobin 30.0 % Concent Red Cell Distribution Width 15.4 % Platelet Count 308 TH/MM3 Mean Platelet Volume 9.4 FL Neutrophils (%) (Auto) 81.3 % Lymphocytes (%) (Auto) 13.5 % Monocytes (%) (Auto) 4.5 % Eosinophils (%) (Auto) 0.0 % Basophils (%) (Auto) 0.7 % Neutrophils # (Auto) 17.8 TH/MM3 Lymphocytes # (Auto) 2.9 TH/MM3 Monocytes # (Auto) 1.0 TH/MM3 Eosinophils # (Auto) 0.0 TH/MM3 Basophils # (Auto) 0.1 TH/MM3 CBC Comment AUTO DIFF Differential Total Cells 100 Counted Neutrophils % (Manual) 85 % Band Neutrophils % 5 % Lymphocytes % 7 % Monocytes % 2 % Neutrophils # (Manual) 19.9 TH/MM3 Metamyelocytes 1 % Differential Comment FINAL DIFF MANUAL Dohle Bodies PRESENT Platelet Estimate NORMAL Platelet Morphology Comment NORMAL Keratocytes OCC Prothrombin Time 9.9 SEC Prothromb Time International 0.9 RATIO Ratio Activated Partial 25.8 SEC Thromboplast Time MDM Supervised Visit with SORAYA: Yes Narrative Course Patient seen and examined by me in addition to Wayne ROLLE. Patient appears toxic, positive Sirs criteria. Extreme DKA with metabolic encephalopathy. Started an insulin drip at 2 L normal saline given. She remains critically ill. Pricilla hugger in place. Patient reassessed multiple times by me for hemodynamic instability and have not seen any. She remains with significantly altered mental status is unable to give any history. CT scan of the head negative. I discussed this patient with Dr. rCaig of [facility] who agrees for admission. Critical Care Narrative Aggregate critical care time was 60 minutes. Time to perform other separately billable procedures was not included in the critical care time. My time did not include minutes spent treating any other patients simultaneously or on activities that did not directly contribute to the patient's treatment. The services I provided to this patient were to treat and/or prevent clinically significant deterioration that could result in: , disability, organ failure I provided critical care services requiring my management, as noted below: Chart data review, documentation time, medication orders and management, vital sign assessments/reviewing monitor data, ordering and reviewing lab tests, ordering and interpreting/reviewing x-rays and diagnostic studies, care of the patient and discussion of the patient with the admitting physicians. Diagnosis Primary Impression: Sepsis Additional Impressions: Metabolic encephalopathy DKA (diabetic ketoacidoses) Admitting Information Admitting Physician Requests: Admit Condition: Critical Linwood Sweeney MD Jul 15, 2017 13:59
[2017-07-15] MEDS ORDERED: SODIUM CHLORIDE 0.9% FLUSH 5 ML FLUSH IV FLUSH PRN (14:00)
--- NOTE | 2017-07-15 14:06 | PD ---
HPI Chief Complaint: Altered Mental Status Time Seen by Provider: 14:02 Travel History International Travel<30 days: No Contact w/Intl Traveler<30days: No Traveled to known affect area: No History of Present Illness HPI Patient comes in by EMS after family found her altered at home today. Patient was reportedly last seen normal 2 days ago. Patient is alert and oriented to name, date of , and president, but does not know the year. Patient denies any pain anywhere. Denies any chest pain, shortness of breath, headache, abdominal pain, back pain, nausea, vomiting, or other complaints. Patient is somewhat altered thus limiting HPI. PFSH Past Medical History Hx Anticoagulant Therapy: Yes (ASPIRIN ) Anemia: Yes (iron deficiency) Arthritis: Yes Asthma: Yes Anxiety: No Depression: No Heart Rhythm Problems: No Cancer: No Cardiovascular Problems: Yes (htn on med, Hx MD with stents) High Cholesterol: No Chemotherapy: No Chest Pain: Yes Congestive Heart Failure: Yes COPD: Yes Cerebrovascular Accident: No Coronary Artery Disease: Yes Diabetes: Yes Patient Takes Glucophage: No (UNKNOWN) Diminished Hearing: No Endocrine: No Gastrointestinal Disorders: No GERD: No Genitourinary: No Headaches: No Hepatitis: No Hiatal Hernia: Yes Hypertension: Yes Immune Disorder: No Implanted Vascular Access Dvce: No Kidney Stones: No Musculoskeletal: Yes (ARTHRITIS) Neurologic: Yes (LAMINECTOMY,SIATICA, NEUROPATHY) Psychiatric: No Reproductive: No Respiratory: Yes (copd) Immunizations Current: Yes Migraines: Yes Myocardial Infarction: Yes (STENTS X 2) Radiation Therapy: No Renal Failure: No Seizures: No Sleep Apnea: No Thyroid Disease: No Ulcer: No Tetanus Vaccination: < 5 Years Influenza Vaccination: Yes ?: Not Menopausal: Yes : 1 Para: 1 Miscarriage: 0 Past Surgical History Abdominal Surgery: Yes (appy) AICD: No Appendectomy: Yes Body Medical Devices: CARDIAC STENTS X3 Cardiac Surgery: No Section: Yes Ear Surgery: No Endocrine Surgery: No Eye Surgery: No Genitourinary Surgery: No Gynecologic Surgery: Yes (C-SECT., HYSTERECTOMY) Hysterectomy: Yes Joint Replacement: No Neurologic Surgery: No Oral Surgery: Yes (TONSILS) Pacemaker: No Thoracic Surgery: No Tonsillectomy: Yes (ADENOIDS) Other Surgery: Yes (LEFT WRIST GANGLION CYST) Social History Alcohol Use: No Tobacco Use: No (QUIT 2001) Substance Use: Yes (MEDICAL MARIJUANA ) Allergies-Medications (Allergen,Severity, Reaction): Coded Allergies: propoxyphene (Unverified Allergy, Mild, RASH, 07/15/17) *MDRO Multi-Drug Resistant Organism (Verified Adverse Reaction, Unknown, ) 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, 06/17/17 Reported Meds & Prescriptions Reported Meds & Active Scripts Active Novolog Inj (Insulin Aspart) 100 Unit/Ml Inj 1 Units SQ ACHS SLIDING SCALE 30 Days Sliding Scale As Directed.150-199 1 Unit; 200-249 3 units; 250-299 5 Units; 300-349 7 Units; Hydrocodone-Acetaminophen 10-325 mg Tab 1 Tab PO Q4H PRN Levemir Inj (Insulin Detemir) 1,000 unit/ 10 ML Vial 5 Units SQ DAILY 30 Days Gabapentin 100 Mg Cap 100 Mg PO TID Furosemide 40 Mg Tab 40 Mg PO DAILY Norvasc (Amlodipine Besylate) 10 Mg Tab 10 Mg PO DAILY Reported Zinc (Zinc Gluconate) 50 Mg Tab 50 Mg PO DAILY Nitroglycerin SL (Nitroglycerin) 0.4 Mg Subl 0.4 Mg SL DIRECTED PRN ONE TABLET UNDER THE TONGUE NEEDED FOR CHEST PAIN, MAY REPEAT EVERY FIVE MINUTES FOR A TOTAL OF 3 DOSES OR CALL 911 IF NO RELIEF Isosorbide Mononitrate ER (Isosorbide Mononitrate) 30 Mg [place] 30 Mg PO DAILY Spironolactone 25 Mg Tab 25 Mg PO DAILY Pravastatin 40 Mg Tab 40 Mg PO DAILY Ranitidine (Ranitidine HCl) 150 Mg Cap 150 Mg PO DAILY PRN Metoprolol Tartrate 50 Mg Tab 50 Mg PO BID Lisinopril 20 Mg Tab 20 Mg PO DAILY Folic Acid 800 Mcg Tab 1,600 Mcg PO DAILY Effient (Prasugrel) 10 Mg Tab 10 Mg PO DAILY Aspirin 81 Mg Chew 81 Mg CHEW DAILY Review of Systems ROS Limitations: Altered Mental Status Except as stated in HPI: all other systems reviewed are Neg Physical Exam Exam Limitations: Altered Mental Status Narrative GENERAL: Well-developed, well nourished, in no acute distress, and ill appearing. SKIN: Focused skin assessment warm and dry. HEAD: Atraumatic. Normocephalic. EYES: Pupils equal and round. EOMI. No scleral icterus. No injection or drainage. ENT: No nasal bleeding or discharge. Mucous membranes pink and moist. NECK: Trachea midline. Supple. No nuclear rigidity. CARDIOVASCULAR: Regular rate and rhythm. No murmur appreciated. RESPIRATORY: No accessory muscle use. No respiratory distress. Clear to auscultation. Breath sounds equal bilaterally. GASTROINTESTINAL: Abdomen soft, non-tender, nondistended, and no guarding. Hepatic and splenic margins not palpable. Normal bowel sounds 4. No pulsatile mass. MUSCULOSKELETAL: No obvious deformities. No clubbing. No cyanosis. No edema. Full range of motion. NEUROLOGICAL: Awake and alert. No obvious cranial nerve deficits. Motor grossly within normal limits. Normal speech. Data Data Last Documented VS Vital Signs Date Time Temp Pulse Resp B/P Pulse Ox O2 Delivery O2 Flow Rate FiO2 07/15/17 17:14 96.8 85 18 131/73 100 Room Air Orders Electrocardiogram (07/15/17 13:54) Ammonia (07/15/17 13:54) Complete Blood Count With Diff (07/15/17 13:54) Comprehensive Metabolic Panel (07/15/17 13:54) Creatine Kinase (Cpk) (07/15/17 13:54) Prothrombin Time / Inr (Pt) (07/15/17 13:54) Act Partial Throm Time (Ptt) (07/15/17 13:54) Troponin I (07/15/17 13:54) Thyroid Stimulating Hormone (07/15/17 13:54) Urinalysis - C+S If Indicated (07/15/17 13:54) Lactic Acid Sepsis Protocol (07/15/17 13:54) Arterial Blood Gas (Abg) (07/15/17 13:54) Blood Culture (07/15/17 13:54) Chest, Single Ap (07/15/17 13:54) Ct Brain W/O Iv Contrast(Rout) (07/15/17 13:54) Blood Glucose (07/15/17 13:54) Ecg Monitoring (07/15/17 13:54) Iv Access Insert/Monitor (07/15/17 13:54) Oximetry (07/15/17 13:54) Oxygen Administration (07/15/17 13:54) Urinary Catheter Insert/Apply (07/15/17 13:54) Sodium Chloride 0.9% Flush (Ns Flush) (07/15/17 14:00) Drug Screen, Random Urine (07/15/17 13:54) Alcohol (Ethanol) (07/15/17 13:54) Vancomycin Inj (Vancomycin Inj) (07/15/17 13:54) Piperacil-Tazo 4.5 Gm Premix (Zosyn 4.5 (07/15/17 13:54) Sodium Chlor 0.9% 1000 Ml Inj (Ns 1000 M (07/15/17 13:54) Sodium Chlor 0.9% 1000 Ml Inj (Ns 1000 M (07/15/17 13:54) Sodium Chlor 0.9% 1000 Ml Inj (Ns 1000 M (07/15/17 14:15) Beta Hydroxybutyrate (Acetone) (07/15/17 14:17) Sodium Chlor 0.9% 1000 Ml Inj (Ns 1000 M (07/15/17 14:30) Insulin Regular (Iv Infusion) (Novolin R (07/15/17 14:30) Sodium Bicarbonate 8.4% Inj (Sodium Bica (07/15/17 14:30) Diet Npo (07/15/17 Dinner) Sodium Chlor 0.9% 1000 Ml Inj (Ns 1000 M (07/15/17 14:27) Dext 5%-Nacl 0.9% 1000 Ml Inj (D5w-Ns 10 (07/15/17 14:27) Potassium Chlor 40 Meq Premix (Kcl 40 Me (07/15/17 14:30) Potassium Chlor 40 Meq Premix (Kcl 40 Me (07/15/17 14:30) Potassium Chlor 20 Meq Premix (Kcl 20 Me (07/15/17 14:30) Potassium Chlor 20 Meq Premix (Kcl 20 Me (07/15/17 14:30) Potassium Chlor 20 Meq Premix (Kcl 20 Me (07/15/17 14:30) Potassium Chlor 20 Meq Premix (Kcl 20 Me (07/15/17 14:30) Potassium Chlor 20 Meq Premix (Kcl 20 Me (07/15/17 14:30) Potassium Chlor 20 Meq Premix (Kcl 20 Me (07/15/17 14:30) Sodium Bicarbonate 8.4% Inj (Sodium Bica (07/15/17 14:30) Sodium Bicarbonate 8.4% Inj (Sodium Bica (07/15/17 14:30) Sodium Phosphate Inj (Sodium Phosphate I (07/15/17 14:30) Hemoglobin (Hgb) A1c (07/15/17 14:27) Basic Metabolic Panel (Bmp) (07/15/17 19:27) Basic Metabolic Panel (Bmp) (07/16/17 01:27) Basic Metabolic Panel (Bmp) (07/16/17 07:27) Basic Metabolic Panel (Bmp) (07/16/17 13:27) Magnesium (Mg) (07/15/17 19:27) Magnesium (Mg) (07/16/17 01:27) Magnesium (Mg) (07/16/17 07:27) Magnesium (Mg) (07/16/17 13:27) Phosphorus (Po4) (07/15/17 19:27) Phosphorus (Po4) (07/16/17 01:27) Phosphorus (Po4) (07/16/17 07:27) Phosphorus (Po4) (07/16/17 13:27) Beta Hydroxybutyrate (Acetone) (07/16/17 01:27) Beta Hydroxybutyrate (Acetone) (07/16/17 13:27) Magnesium (Mg) (07/15/17 14:48) Phosphorus (Po4) (07/15/17 14:48) CKMB (07/15/17 14:10) CKMB% (07/15/17 14:10) Aspirin Supp (Aspirin Supp) (07/15/17 15:30) Sodium Chlor 0.9% 1000 Ml Inj (Ns 1000 M (07/15/17 15:30) Basic Metabolic Panel (Bmp) (07/15/17 17:19) Ckmb (Isoenzyme) Profile (07/15/17 17:21) Troponin I (07/15/17 17:21) Electrocardiogram (07/15/17 17:42) Consult Cardiology (07/15/17 ) Aspirin (Aspirin) (07/15/17 18:00) Aspirin Chew (Aspirin Chew) (07/15/17 18:00) Metoprolol Tartrate (Lopressor) (07/15/17 21:00) Prasugrel (Effient) (07/16/17 09:00) Pravastatin (Pravachol) (07/16/17 09:00) Admit Order (Ed Use Only) (07/15/17 17:54) CKMB (07/15/17 17:24) CKMB% (07/15/17 17:24) Labs Laboratory Tests Test 07/15/17 07/15/17 07/15/17 07/15/17 14:05 14:10 14:13 17:24 Blood Gas Puncture Site RT RADIAL Blood Gas Patient Temperature 98.6 Blood Gas HCO3 3 mmol/L Blood Gas Base Excess -25.9 mmol/L Blood Gas Oxygen Saturation 95 % Arterial Blood pH 7.11 Arterial Blood Partial 9 mmHg Pressure CO2 Arterial Blood Partial 134 mmHG Pressure O2 Arterial Blood Oxygen Content 14.4 Vol % Arterial Blood 1.8 % Carboxyhemoglobin Arterial Blood Methemoglobin 1.1 % Blood Gas Hemoglobin 10.6 G/DL Oxygen Delivery Device RA Blood Gas Inspired Oxygen 21 % Urine Color LIGHT-YELLOW Urine Turbidity HAZY Urine pH 5.5 Urine Specific [place] 1.020 Urine Protein 100 mg/dL Urine Glucose (UA) 1000 mg/dL Urine Ketones 80 mg/dL Urine Occult Blood SMALL Urine Nitrite NEG Urine Bilirubin NEG Urine Urobilinogen LESS THAN 2.0 MG/DL Urine Leukocyte Esterase NEG Urine RBC 1 /hpf Urine WBC LESS THAN 1 /hpf Urine Amorphous Sediment MOD Microscopic Urinalysis Comment CATH-CULT NOT IND Sodium Level 131 MEQ/L 136 MEQ/L Potassium Level 5.5 MEQ/L 4.6 MEQ/L Chloride Level 93 MEQ/L 99 MEQ/L Carbon Dioxide Level 5.3 MEQ/L 7.3 MEQ/L Anion Gap 33 MEQ/L 30 MEQ/L Blood Urea Nitrogen 57 MG/DL 55 MG/DL Creatinine 2.51 MG/DL 2.43 MG/DL Estimat Glomerular Filtration 19 ML/MIN 20 ML/MIN Rate Random Glucose 1065 MG/DL 895 MG/DL Lactic Acid Level 1.6 mmol/L Calcium Level 8.9 MG/DL 8.2 MG/DL Phosphorus Level 5.8 MG/DL Magnesium Level 2.6 MG/DL Total Bilirubin 0.4 MG/DL Aspartate Amino Transf 26 U/L (AST/SGOT) Alanine Aminotransferase 18 U/L (ALT/SGPT) Alkaline Phosphatase 172 U/L Ammonia LESS THAN 10 MCMOL/L Total Creatine Kinase 332 U/L 449 U/L Creatine Kinase MB 14.7 NG/ML 19.2 NG/ML Creatine Kinase MB % 4.4 % 4.3 % Troponin I 0.52 NG/ML 0.89 NG/ML Total Protein 5.9 GM/DL Albumin 2.2 GM/DL Thyroid Stimulating Hormone 1.130 uIU/ML 3rd Gen Ethyl Alcohol Level LESS THAN 3 MG/DL B-Hydroxybutyrate 17.72 MMOL/L White Blood Count 21.9 TH/MM3 Red Blood Count 3.48 MIL/MM3 Hemoglobin 9.9 GM/DL Hematocrit 33.1 % Mean Corpuscular Volume 95.3 FL Mean Corpuscular Hemoglobin 28.6 PG Mean Corpuscular Hemoglobin 30.0 % Concent Red Cell Distribution Width 15.4 % Platelet Count 308 TH/MM3 Mean Platelet Volume 9.4 FL Neutrophils (%) (Auto) 81.3 % Lymphocytes (%) (Auto) 13.5 % Monocytes (%) (Auto) 4.5 % Eosinophils (%) (Auto) 0.0 % Basophils (%) (Auto) 0.7 % Neutrophils # (Auto) 17.8 TH/MM3 Lymphocytes # (Auto) 2.9 TH/MM3 Monocytes # (Auto) 1.0 TH/MM3 Eosinophils # (Auto) 0.0 TH/MM3 Basophils # (Auto) 0.1 TH/MM3 CBC Comment AUTO DIFF Differential Total Cells 100 Counted Neutrophils % (Manual) 85 % Band Neutrophils % 5 % Lymphocytes % 7 % Monocytes % 2 % Neutrophils # (Manual) 19.9 TH/MM3 Metamyelocytes 1 % Differential Comment FINAL DIFF MANUAL Dohle Bodies PRESENT Platelet Estimate NORMAL Platelet Morphology Comment NORMAL Keratocytes OCC Prothrombin Time 9.9 SEC Prothromb Time International 0.9 RATIO Ratio Activated Partial 25.8 SEC Thromboplast Time MDM Medical Decision Making Medical Screen Exam Complete: Yes Emergency Medical Condition: Yes Interpretation(s) EKG reviewed by Dr. Sweeney shows sinus rhythm with ventricular rate of 78. No STEMI. Chest x-ray reviewed by the radiologist shows: No acute disease. CT head read by the radiologist shows: No acute intracranial abnormality. Repeat EKG reviewed by Dr. Sweeney shows sinus rhythm ventricular rate of 82. No STEMI. Differential Diagnosis Acute coronary syndrome, TIA, CVA, metabolic acidosis, DKA, electrolyte abnormality, acute coronary syndrome, other Narrative Course Patient was seen and examined. Initial laboratory radiologic studies were ordered. IV was established. Patient placed on continuous cardiac monitoring. Bear hugger was placed. ABG was obtained and reviewed. Patient was started on IV fluids, IV antibiotics, and insulin drip. Discussed patient with Dr. Sweeney , who saw and evaluated the patient and is in agreement with plan of care. 1500 patient reassessed the rest in bed in no acute distress. Patient still confused. 1615 patient reassess. Lungs reassessed and still clear. 1715 patient reassessed after returning from CAT scan. Vital signs stable. Patient still altered. 1745 patient is placed to the undercollar maker after CT results posted. Sepsis Criteria SIRS Criteria (2 or more): Temp > 100.9 or < 96.8, RR > 20 or PaCO2 < 32, WBC > 60314, < 4000 or > 10% bands Severe Sepsis (+one): Organ Dysfunction Multiple Organ Dysfunction Syn: Evidence -2 organs failing Physician Communication Physician Communication [address] Craig, the undercollar maker, who is agreeable to admit the patient and requested cardiology consult. Diagnosis Primary Impression: Sepsis Qualified Code: A41.9 - Sepsis, due to unspecified organism Additional Impressions: Elevated troponin DKA (diabetic ketoacidoses) Metabolic encephalopathy Admitting Information Admitting Physician Requests: Admit Condition: Critical Jesse Honeycutt Jul 15, 2017 14:06 Sepsis Criteria SIRS Criteria (2 or more): Temp > 100.9 or < 96.8, RR > 20 or PaCO2 < 32, WBC > 22184, < 4000 or > 10% bands Severe Sepsis (+one): Organ Dysfunction Multiple Organ Dysfunction Syn: Evidence -2 organs failing Physician Communication Physician Communication [address] Craig, the undercollar maker, who is agreeable to admit the patient and requested cardiology consult. Diagnosis Primary Impression: Sepsis Qualified Code: A41.9 - Sepsis, due to unspecified organism Additional Impressions: Elevated troponin DKA (diabetic ketoacidoses) Metabolic encephalopathy Admitting Information Admitting Physician Requests: Admit Condition: Critical Jesse Honeycutt Jul 15, 2017 14:06
[2017-07-15 14:15] LABS: BLOOD GAS BASE EXCESS -25.9 mmol/L (-2-2); BLOOD GAS CARBOXYHEMOGLOBIN 1.8 % (0-4); BLOOD GAS HCO3 3 mmol/L (22-26); BLOOD GAS METHEMOGLOBIN 1.1 % (0-2); BLOOD GAS O2 HGB SATURATION 95 % (90-100); BLOOD GAS OXYGEN CONTENT 14.4 Vol % (12.0-20.0); BLOOD GAS PCO2 9 mmHg (38-42); BLOOD GAS PO2 134 mmHG (61-120); BLOOD GAS TOTAL HGB 10.6 G/DL (12.0-16.0); CRITICAL VALUE YES; DRAW SITE RT RADIAL; FIO2 21 %; NUMBER OF ARTERIAL PUNCTURES 1; OXYGEN DEVICE RA; STAT YES; TEMP CORR TO 98.6; ULNAR PULSE PRESENT
[2017-07-15 14:27] LABS: AUTOMATED NEUTROPHIL # 17.8 TH/MM3 (1.8-7.7); BASOPHIL # 0.1 TH/MM3 (0-0.2); BASOPHIL % 0.7 % (0.0-2.0); HEMATOCRIT 33.1 % (35.0-46.0); LYMPH % 13.5 % (9.0-44.0); LYMPHOCYTE # 2.9 TH/MM3 (1.0-4.8); MEAN CELL VOLUME 95.3 FL (80.0-100.0); MEAN CORPUSCULAR HEMOGLOBIN 28.6 PG (27.0-34.0); MONO % 4.5 % (0.0-8.0); NEUT % 81.3 % (16.0-70.0); PLATELET COUNT 308 TH/MM3 (150-450); RED BLOOD COUNT 3.48 MIL/MM3 (4.00-5.30); RED CELL DISTRIBUTION WIDTH 15.4 % (11.6-17.2); WHITE BLOOD COUNT 21.9 TH/MM3 (4.0-11.0)
[2017-07-15] MEDS ORDERED: POTASSIUM CHLOR 20 MEQ PREMIX 100 ML IV PRN ×5 (14:30)
[2017-07-15] MEDS ORDERED: SODIUM BICARBONATE 8.4% INJ 50 MEQ/50 ML SYR IV PUSH ONE (14:30)
[2017-07-15] MEDS ORDERED: SODIUM PHOSPHATE INJ 15 MMOL in SODIUM CHLORIDE 0.9% INJ 100 ML IV PRN (14:30)
[2017-07-15] MEDS ORDERED: POTASSIUM CHLOR 40 MEQ PREMIX 100 ML IV PRN ×2 (14:30)
[2017-07-15] MEDS ORDERED: SODIUM BICARBONATE 8.4% SOLN 50 MEQ/50 ML VIAL IV PRN ×2 (14:30)
[2017-07-15 14:31] LABS: HEMO FLAGS AUTO DIFF
[2017-07-15 14:36] LABS: BLOOD, URINE SMALL (NEG); GLUCOSE,URINE 1000 mg/dL (NEG); KETONE, URINE 80 mg/dL (NEG); NITRITE,URINE NEG (NEG); PH, URINE 5.5 (5.0-8.5); URINE COLOR LIGHT-YELLOW (YELLW/STRAW)
[2017-07-15 14:38] LABS: APTT (PATIENT) 25.8 SEC (24.3-30.1); INTERNATIONAL NORMALIZED RATIO 0.9 RATIO; PROTHROMBIN TIME - PATIENT 9.9 SEC (9.8-11.6)
[2017-07-15 14:39] LABS: COMMENT (UR) CATH-CULT NOT IND; CULTURE IF INDICATED CATH CULTURE NOT IND
[2017-07-15 14:51] LABS: ANION GAP 33 MEQ/L (5-15)
[2017-07-15 15:09] LABS: ALKALINE PHOSPHATASE 172 U/L (45-117); ALT (GPT) 18 U/L (10-53); AST (GOT) 26 U/L (15-37); BICARBONATE 5.3 MEQ/L (21.0-32.0); BLOOD UREA NITROGEN 57 MG/DL (7-18); CHLORIDE 93 MEQ/L (98-107); CREATINE KINASE 332 U/L (26-192); GLOMERULAR FILTRATION RATE 19 ML/MIN (>89); POTASSIUM 5.5 MEQ/L (3.5-5.1); SODIUM (NA) 131 MEQ/L (136-145); TOTAL BILIRUBIN ADULT 0.4 MG/DL (0.2-1.0)
[2017-07-15 15:14] LABS: ALCOHOL LESS THAN 3 MG/DL (0-5)
--- NOTE | 2017-07-15 15:18 | RADRPT ---
EXAM DATE/TIME: 07/15/2017 14:08 [facility] COMPARISON: CHEST SINGLE AP, April 25, 2017, 16:29. INDICATIONS : Syncope. MEDICAL HISTORY : None. SURGICAL HISTORY : None. ENCOUNTER: Initial ACUITY: 1 day PAIN SCORE: Non-responsive. LOCATION: Bilateral chest FINDINGS: A single view of the chest demonstrates the lungs to be symmetrically aerated without evidence of mas s, infiltrate or effusion. The cardiomediastinal contours are unremarkable. Osseous structures are intact. CONCLUSION: No acute disease. Nura Niño MD on July 15, 2017 at 15:12 Board Certified Radiologist. This report was verified electronically.
[2017-07-15 15:20] LABS: BANDS 5 % (0-6); METAMYELOCYTES 1 % (0-1); NEUTROPHIL # MANUAL DIFF 19.9 TH/MM3 (1.8-7.7); POLYS (SEG NEUTROPHILS) 85 % (16-70); WBC DIFF SAMPLE 100
[2017-07-15 15:23] LABS: DOHLE BODIES PRESENT (NONE SEEN); KERATOCYTES OCC (NORMAL); PLATELET ESTIMATE SMEAR NORMAL (NORMAL); PLATELET MORPHOLOGY NORMAL (NORMAL); SCAN/DIFF FINAL DIFF MANUAL
[2017-07-15 15:28] LABS: MAGNESIUM 2.6 MG/DL (1.5-2.5)
[2017-07-15] MEDS ORDERED: ASPIRIN 300 MG SUPP RECTAL ONE (15:30)
[2017-07-15 15:32] LABS: CKMB 14.7 NG/ML (0.5-3.6)
[2017-07-15] MEDS: INSULIN REGULAR (IV INFUSION) 100 UNITS in SODIUM CHLORIDE 0.9% INJ 99 ML IV SCH (15:58)
--- NOTE | 2017-07-15 17:38 | RADRPT ---
EXAM DATE/TIME: 07/15/2017 16:59 [facility] COMPARISON: CT BRAIN W/O CONTRAST, April 07, 2017, 11:30. INDICATIONS : Altered mental status for two days. RADIATION DOSE: 56.39 CTDIvol (mGy) MEDICAL HISTORY : Hypertension. Myocardial infarction. Diabetes mellitus type 2.AFIB, CAD, SURGICAL HISTORY : Coronary artery stent. Hysterectomy.Angioplasty ENCOUNTER: Initial ACUITY: 2 days PAIN SCALE: Non-responsive LOCATION: Bilateral cranial TECHNIQUE: Multiple contiguous axial images were obtained of the head. Using automated exposure control and adj ustment of the mA and/or kV according to patient size, radiation dose was kept as low as reasonably a chievable to obtain optimal diagnostic quality images. DICOM format image data is available electro nically for review and comparison. FINDINGS: CEREBRUM: The ventricles are normal for age. No evidence of midline shift, mass lesion, hemorrhage or acute in farction. No extra-axial fluid collections are seen. POSTERIOR FOSSA: The cerebellum and brainstem are intact. The 4th ventricle is midline. The cerebellopontine angle i s unremarkable. EXTRACRANIAL: The visualized portion of the orbits is intact. SKULL: The calvaria is intact. No evidence of skull fracture. CONCLUSION: 1. No acute intercranial abnormality. Wally Trimble MD on July 15, 2017 at 17:15 Board Certified Radiologist. This report was verified electronically.
[2017-07-15] MEDS ORDERED: MAGNESIUM HYDROXIDE SUSP 30 ML CUP PO PRN (18:00)
[2017-07-15] MEDS ORDERED: SENNOSIDES 8.6 MG TAB PO PRN (18:00)
[2017-07-15] MEDS ORDERED: MISCELLANEOUS NURSING INFORMATION XX SCH (18:00)
[2017-07-15] MEDS ORDERED: BISACODYL 10 MG SUPP RECTAL PRN (18:00)
[2017-07-15] MEDS ORDERED: RESP: ALBUTEROL 2.5 MG/IPRATROPIUM 0.5 MG NEB (PRN) INH (18:00)
[2017-07-15] MEDS ORDERED: LACTULOSE SYRUP 20 GM/30 ML CUP PO PRN (18:00)
[2017-07-15] MEDS ORDERED: CHLORHEXIDINE GLUCONATE 2 % 1 PACK (2 CLOTHS) TOP PRN (18:00)
[2017-07-15 18:27] LABS: BICARBONATE 7.3 MEQ/L (21.0-32.0); POTASSIUM 4.6 MEQ/L (3.5-5.1)
[2017-07-15 18:42] LABS: CKMB 19.2 NG/ML (0.5-3.6)
--- NOTE | 2017-07-15 19:06 | HHI.HP ---
[facility] Service Critical Care Medicine Primary Care Physician Unknown Admission Diagnosis sepsis w/multiorgan failure, metabolic encephalopathy, elevated T Diagnosis: Travel History International Travel<30 Days: No Contact w/Intl Traveler <30 Da: No Traveled to Known Affected Are: No Sepsis Criteria SIRS Criteria (2 or more): Temp > 100.9 or < 96.8 Severe Sepsis (+one): Organ Dysfunction Multiple Organ Dysfunction Syn: Evidence -2 organs failing Criteria Outcome: Meets SIRS criteria History of Present Illness History from patient is very limited due to her mental status. I attempted to contact her at the phone numbers provided but there was no answer. He had already left the emergency department (ED RN states he was there briefly). History obtained from discussion with the ED physician and review of EMR. 66-year-old female with past medical history of diabetes mellitus ( diagnosed in 1998), hypertension, coronary artery disease with prior stents, CHF , hyperlipidemia, asthma/COPD, chronic kidney disease stage III, prior tobacco abuse, iron deficiency anemia who presented to [facility] emergency department via [facility] after she was found altered at home today. Reportedly she was last seen normal 2 days prior. She was oriented to self, date of , president, but not year. She denies chest pain, shortness of breath, headache, neck pain, dysuria, abdominal pain, back pain, nausea, vomiting, diarrhea. Remainder review of systems negative. ED workup reveals DKA with pH of 7.11/ PaCO2 of 9/PA O2 of 134/bicarbonate 3/base deficit of 25.9. Anion gap is 30, glucose is 895, beta hydroxybutyrate 17.7. She has acute kidney injury with a creatinine of 2.51 (baseline 0.8 - 1. 2). Troponin is 0.89. EKG shows normal sinus rhythm at a rate of [address] changes. White blood cell count is 21.9. Urinalysis is negative for evidence of infection. CXR clear. Blood cultures have been obtained. She has received vancomycin and Zosyn in the ED. She has received 2 L normal saline bolus and has been started on an insulin drip. 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 Reddy) Appendectomy Hysterectomy Tonsillectomy Adenoidectomy Left wrist ganglion cyst removal Debridement of right lower extremity ulceration 03/16/17 (Dr. Read) Colonoscopy with polypectomy Reported Medications Lisinopril 20 mg by mouth daily Gabapentin 100 mg by mouth 3 times a day Metoprolol 50 mg by mouth twice a day Norvasc 10 mg by mouth daily Ranitidine 150 mg by mouth daily as needed for reflux Pravastatin 40 mg by mouth daily Detemir 5 units subcutaneous daily NovoLog sliding scale Lasix 40 mg by mouth daily Spironolactone 25 mg by mouth daily Isosorbide mononitrate 30 g by mouth daily Nitroglycerin 0.4 mg sublingual when necessary chest pain Aspirin 81 mg daily Hydrocodone 10/325 one by mouth every 4 hours when necessary pain Effient 10 mg by mouth daily Zinc gluconate 50 g by mouth daily Folic acid 1600 g by mouth daily Family History Mother had MS. Her father of colorectal cancer at age 40. There is no family history of cardiac disease. Social History Smoked one pack of cigarettes per day from age 15 to age 51. No alcohol or illicit drug use Physical Exam Vital Signs Vital Signs Date Time Temp Pulse Resp B/P Pulse Ox O2 Delivery O2 Flow Rate FiO2 07/15/17 17:14 96.8 85 18 131/73 100 Room Air 07/15/17 13:45 95.4 82 18 122/76 99 07/15/17 13:45 95.4 81 18 122/76 100 Room Air 07/15/17 13:45 82 18 100 Room Air Physical Exam GENERAL: Well-nourished, well-developed patient who is laying in the ED stretcher, complaining that the blood pressure cuff is bothering her and she is taking it off. SKIN: Warm and dry. Scar over medial aspect of right del cid with scab and granulation tissue. No drainage, fluctuance, or tenderness. No surrounding erythema. HEAD: Atraumatic. Normocephalic. EYES: Pupils equal and round, 3 mm and reactive bilaterally. No scleral icterus. ENT: No nasal bleeding or discharge. Mucous membranes very dry. NECK: Trachea midline. No JVD. No meningismus CARDIOVASCULAR: Regular rate and rhythm. No murmurs rubs or gallops. RESPIRATORY: [place] respirations, no accessory muscle use. Clear to auscultation with no wheezes Rales or rhonchi.. Breath sounds equal bilaterally. On room air GASTROINTESTINAL: Abdomen soft, non-tender, nondistended. Bowel sounds present. Patient has had a formed bowel movement in the bed. : Lim in place with 900 mL of light good urine in bag. MUSCULOSKELETAL: Extremities without clubbing, cyanosis, or edema. NEUROLOGICAL: Awake, oriented to self, hospital. No obvious cranial nerve deficits. Motor grossly within normal limits, moving all extremities actively and spontaneously. Follows commands with hand squeeze bilaterally. Normal speech. Laboratory Laboratory Tests Test 07/15/17 07/15/17 07/15/17 07/15/17 14:05 14:10 14:13 17:24 Blood Gas Puncture Site RT RADIAL Blood Gas Patient Temperature 98.6 Blood Gas HCO3 3 Blood Gas Base Excess -25.9 Blood Gas Oxygen Saturation 95 Arterial Blood pH 7.11 Arterial Blood Partial 9 Pressure CO2 Arterial Blood Partial 134 Pressure O2 Arterial Blood Oxygen Content 14.4 Arterial Blood 1.8 Carboxyhemoglobin Arterial Blood Methemoglobin 1.1 Blood Gas Hemoglobin 10.6 Oxygen Delivery Device RA Blood Gas Inspired Oxygen 21 Urine Color LIGHT-YELLOW Urine Turbidity HAZY Urine pH 5.5 Urine Specific [place] 1.020 Urine Protein 100 Urine Glucose (UA) 1000 Urine Ketones 80 Urine Occult Blood SMALL Urine Nitrite NEG Urine Bilirubin NEG Urine Urobilinogen LESS THAN 2.0 Urine Leukocyte Esterase NEG Urine RBC 1 Urine WBC LESS THAN 1 Urine Amorphous Sediment MOD Microscopic Urinalysis Comment CATH-CULT NOT IND Sodium Level 131 136 Potassium Level 5.5 4.6 Chloride Level 93 99 Carbon Dioxide Level 5.3 7.3 Anion Gap 33 30 Blood Urea Nitrogen 57 55 Creatinine 2.51 2.43 Estimat Glomerular Filtration 19 20 Rate Random Glucose 1065 895 Lactic Acid Level 1.6 Calcium Level 8.9 8.2 Phosphorus Level 5.8 Magnesium Level 2.6 Total Bilirubin 0.4 Aspartate Amino Transf 26 (AST/SGOT) Alanine Aminotransferase 18 (ALT/SGPT) Alkaline Phosphatase 172 Ammonia LESS THAN 10 Total Creatine Kinase 332 449 Creatine Kinase MB 14.7 19.2 Creatine Kinase MB % 4.4 4.3 Troponin I 0.52 0.89 Total Protein 5.9 Albumin 2.2 Thyroid Stimulating Hormone 1.130 3rd Gen Ethyl Alcohol Level LESS THAN 3 B-Hydroxybutyrate 17.72 White Blood Count 21.9 Red Blood Count 3.48 Hemoglobin 9.9 Hematocrit 33.1 Mean Corpuscular Volume 95.3 Mean Corpuscular Hemoglobin 28.6 Mean Corpuscular Hemoglobin 30.0 Concent Red Cell Distribution Width 15.4 Platelet Count 308 Mean Platelet Volume 9.4 Neutrophils (%) (Auto) 81.3 Lymphocytes (%) (Auto) 13.5 Monocytes (%) (Auto) 4.5 Eosinophils (%) (Auto) 0.0 Basophils (%) (Auto) 0.7 Neutrophils # (Auto) 17.8 Lymphocytes # (Auto) 2.9 Monocytes # (Auto) 1.0 Eosinophils # (Auto) 0.0 Basophils # (Auto) 0.1 CBC Comment AUTO DIFF Differential Total Cells 100 Counted Neutrophils % (Manual) 85 Band Neutrophils % 5 Lymphocytes % 7 Monocytes % 2 Neutrophils # (Manual) 19.9 Metamyelocytes 1 Differential Comment FINAL DIFF MANUAL Dohle Bodies PRESENT Platelet Estimate NORMAL Platelet Morphology Comment NORMAL Keratocytes OCC Prothrombin Time 9.9 Prothromb Time International 0.9 Ratio Activated Partial 25.8 Thromboplast Time Date/Time Procedure Status Source Growth 07/15/17 14:10 Aerobic Blood Culture Received Blood Peripheral Pending 07/15/17 14:10 Anaerobic Blood Culture Received Blood Peripheral Pending Result Diagram: 07/15/17 1413 07/15/17 1724 Assessment and Plan Assessment and Plan NEURO: Acute encephalopathy, suspect toxic metabolic secondary to severe DKA History of sciatica History of migraines Patient denies headache, neck pain and has no meningismus but if mental status does not improve with correction of DKA then consider meningitis. She has been on dual antiplatelet therapy, so is not candidate for LP at this time and suspicion for meningitis low. CT brain 07/15/17no acute abnormality Check ammonia level RESP: COPD Former tobacco abuse On room air. Protecting airway. We'll continue to monitor CV: NSTEMI Coronary artery disease with prior stent Hypertension Hyperlipidemia Follow serial EKG and cardiac markers. Obtain limited 2-D echo Patient denies CP. Received aspirin 300 mg ND in the ED. Continue aspirin 325 mill grams by mouth daily. Continue Effient 10 mg by mouth daily Continue pravastatin 40 mg by mouth daily. Continue metoprolol 50 mill grams by mouth twice a day Echo 03/15/17EF 55-60%. Mild MR. Patient previously seen by Dr. Reddy in 2015 - Cardiac catheterization stent to proximal RCA and mid LAD GI: GERD Nothing by mouth FEN/RENAL: Acute kidney injury overlying chronic kidney disease stage III Lim in place. Monitor I/O. Monitor electrolytes (BMP, mag, phos q6 hours) and replace as indicated. ID: Received Zosyn and vancomycin in the ED. U/a negative for infection. F/u blood cultures. CXR clear. Continue zosyn renal dosing 2.25 q6 hours. Adjust dose with changing creatinine clearance. HEME: Chronic anemia, iron deficiency Monitor CBC. Recheck iron panel. ENDO: DKA Insulin drip, DKA protocol with serial electrolytes. Transition to subcut when anion gap closed and meal available. PROPH: Lovenox 30 mg subcutaneous daily for DVT prophylaxis. Protonix 40 month grams IV daily for stress ulcer prophylaxis and history of GERD ACCESS: Peripheral IV providing adequate access at this time. Level III H&P Jackie Castaneda MD Jul 15, 2017 19:06
[2017-07-15] MEDS ORDERED: ASPIRIN 81 MG CHEW TAB CHEW SCH (20:00)
[2017-07-15] MEDS ORDERED: ENOXAPARIN SODIUM 30 MG/0.3 ML SYRINGE SQ SCH (20:00)
[2017-07-15] MEDS ORDERED: PIPERACIL-TAZO 3.375 GM PREMIX 50 ML IV SCH (20:00)
[2017-07-15] MEDS: CHLORHEXIDINE GLUCONATE 2 % 1 PACK (2 CLOTHS) TOP SCH (20:36)
[2017-07-15] MEDS: METOPROLOL TARTRATE 50 MG TAB PO SCH (20:37)
[2017-07-15] MEDS: ASPIRIN 325 MG TAB PO SCH (20:37)
[2017-07-15] MEDS: DOCUSATE SODIUM 50 MG/SENNA 8.6 MG TAB PO SCH (20:37)
[2017-07-15 20:46] LABS: BICARBONATE 10.4 MEQ/L (21.0-32.0); MAGNESIUM 2.4 MG/DL (1.5-2.5); POTASSIUM 3.8 MEQ/L (3.5-5.1)
[2017-07-15] MEDS: POTASSIUM CHLOR 20 MEQ PREMIX 100 ML IV PRN (21:59)
[2017-07-16] VITALS (29 sets, daily range): BP systolic 106–179; BP diastolic 52–96; PULSE 53–83; TEMP 97.8–98.6; O2SAT 78–100
[2017-07-16] MEDS: SODIUM CHLOR 0.9% 1000 ML INJ 1,000 ML IV SCH ×6 (00:06→20:50)
[2017-07-16] MEDS: POTASSIUM CHLOR 20 MEQ PREMIX 100 ML IV PRN (00:06)
[2017-07-16] MEDS: DEXT 5%-NACL 0.9% 1000 ML INJ 1,000 ML IV SCH ×3 (00:27→08:58)
[2017-07-16 01:39] LABS: BETA-HYDROXYBUTYRATE 3.75 MMOL/L (0.00-0.39); BICARBONATE 20.1 MEQ/L (21.0-32.0); MAGNESIUM 2.3 MG/DL (1.5-2.5); POTASSIUM 3.7 MEQ/L (3.5-5.1)
[2017-07-16] MEDS ORDERED: SODIUM PHOSPHATE INJ 15 MMOL in SODIUM CHLORIDE 0.9% INJ 150 ML IV ONE (02:00)
[2017-07-16] MEDS: PIPERACIL-TAZO 2.25 GM PREMIX 50 ML IV SCH ×4 (02:32→20:50)
[2017-07-16] MEDS: INSULIN REGULAR (IV INFUSION) 100 UNITS in SODIUM CHLORIDE 0.9% INJ 99 ML IV SCH (02:33)
[2017-07-16 05:14] LABS: RETIC % 1.9 % (0.4-3.0); REVIEW FLAG FINAL
[2017-07-16 05:15] LABS: BASOPHIL # 0.1 TH/MM3 (0-0.2); BASOPHIL % 0.4 % (0.0-2.0); HEMATOCRIT 29.4 % (35.0-46.0); HEMO FLAGS DIFF FINAL; LYMPH % 7.3 % (9.0-44.0); LYMPHOCYTE # 1.5 TH/MM3 (1.0-4.8); MEAN CELL VOLUME 82.7 FL (80.0-100.0); MEAN CORPUSCULAR HEMOGLOBIN 28.7 PG (27.0-34.0); MEAN CORPUSCULAR HGB CONC 34.7 % (32.0-36.0); MONO % 7.6 % (0.0-8.0); NEUT % 84.7 % (16.0-70.0); PLATELET COUNT 281 TH/MM3 (150-450); RED BLOOD COUNT 3.55 MIL/MM3 (4.00-5.30); RED CELL DISTRIBUTION WIDTH 14.4 % (11.6-17.2); WHITE BLOOD COUNT 20.1 TH/MM3 (4.0-11.0)
[2017-07-16 05:41] LABS: ANION GAP 10 MEQ/L (5-15); AST (GOT) 37 U/L (15-37); BICARBONATE 23.2 MEQ/L (21.0-32.0); BLOOD UREA NITROGEN 53 MG/DL (7-18); CHLORIDE 109 MEQ/L (98-107); GLOMERULAR FILTRATION RATE 20 ML/MIN (>89); POTASSIUM 3.8 MEQ/L (3.5-5.1); SODIUM (NA) 142 MEQ/L (136-145)
[2017-07-16 05:52] LABS: ALKALINE PHOSPHATASE 150 U/L (45-117); ALT (GPT) 17 U/L (10-53); TOTAL BILIRUBIN ADULT 0.3 MG/DL (0.2-1.0)
[2017-07-16] MEDS: PANTOPRAZOLE SODIUM 40 MG VIAL IV SCH (08:50)
[2017-07-16] MEDS: METOPROLOL TARTRATE 50 MG TAB PO SCH ×2 (08:50→20:50)
[2017-07-16] MEDS: DOCUSATE SODIUM 50 MG/SENNA 8.6 MG TAB PO SCH ×2 (08:50→20:50)
[2017-07-16] MEDS: ASPIRIN 325 MG TAB PO SCH (08:50)
[2017-07-16] MEDS: PRASUGREL 10 MG TAB PO SCH (08:57)
[2017-07-16] MEDS ORDERED: PRAVASTATIN SOD 40 MG TAB PO SCH (09:00)
[2017-07-16] MEDS: ATORVASTATIN 80 MG TAB PO SCH (10:00)
--- NOTE | 2017-07-16 10:21 | HHI.CCPN ---
Subjective Remarks/Hospital Course History from patient is very limited due to her mental status. I attempted to contact her at the phone numbers provided but there was no answer. He had already left the emergency department (ED RN states he was there briefly). History obtained from discussion with the ED physician and review of EMR. 66-year-old female with past medical history of diabetes mellitus ( diagnosed in 1998), hypertension, coronary artery disease with prior stents, CHF , hyperlipidemia, asthma/COPD, chronic kidney disease stage III, prior tobacco abuse, iron deficiency anemia who presented to [facility] emergency department via [facility] after she was found altered at home today. Reportedly she was last seen normal 2 days prior. She was oriented to self, date of , president, but not year. She denies chest pain, shortness of breath, headache, neck pain, dysuria, abdominal pain, back pain, nausea, vomiting, diarrhea. Remainder review of systems negative. ED workup reveals DKA with pH of 7.11/ PaCO2 of 9/PA O2 of 134/bicarbonate 3/base deficit of 25.9. Anion gap is 30, glucose is 895, beta hydroxybutyrate 17.7. She has acute kidney injury with a creatinine of 2.51 (baseline 0.8 - 1. 2). Troponin is 0.89. EKG shows normal sinus rhythm at a rate of [address] changes. White blood cell count is 21.9. Urinalysis is negative for evidence of infection. CXR clear. Blood cultures have been obtained. She has received vancomycin and Zosyn in the ED. She has received 2 L normal saline bolus and has been started on an insulin drip. SUBJ 07/16: Patient remained confused, but oriented to person and place. She refuses to be examined more than few minutes. White count is slightly improved, from 22,000 to 20,000. Troponin peaked at 3.4. Dr. Londonoat following. IV heparin and aspirin started per his request. Once creatinine is improved he'll consider cardiac catheterization. UO excellent. Creat remains high at 2.4 ( patient has CKD 1.0-24 baseline creat) Objective Vital Signs Date Time Temp Pulse Resp B/P Pulse Ox O2 Delivery O2 Flow Rate FiO2 07/16/17 07:00 67 106/52 98 07/16/17 04:00 97.8 07/15/17 22:00 16 07/15/17 19:08 Room Air Intake and Output 07/15/17 07/15/17 07/15/17 07:59 15:59 23:59 Intake Total 750 ml Output Total 1425 ml Balance -675 ml Result Diagram: 07/16/17 0454 07/16/17 0454 Other Results Laboratory Tests Test 07/15/17 14:05 Blood Gas Puncture Site RT RADIAL Blood Gas Patient Temperature 98.6 Blood Gas HCO3 3 mmol/L (22-26) Blood Gas Base Excess -25.9 mmol/L (-2-2) Blood Gas Oxygen Saturation 95 % (90-100) Arterial Blood pH 7.11 (7.380-7.420) Arterial Blood Partial 9 mmHg (38-42) Pressure CO2 Arterial Blood Partial 134 mmHG Pressure O2 (61-120) Arterial Blood Oxygen Content 14.4 Vol % (12.0-20.0) Arterial Blood 1.8 % (0-4) Carboxyhemoglobin Arterial Blood Methemoglobin 1.1 % (0-2) Blood Gas Hemoglobin 10.6 G/DL (12.0-16.0) Oxygen Delivery Device RA Blood Gas Inspired Oxygen 21 % Objective Remarks GENERAL: Well-nourished, well-developed patient who is laying in the ICU bed. SKIN: Warm and dry. Scar over medial aspect of right del cid with scab and granulation tissue. No surrounding erythema. HEAD: Atraumatic. Normocephalic. EYES: Pupils equal and round, 3 mm and reactive bilaterally. No scleral icterus. ENT: No nasal bleeding or discharge. Mucous membranes very dry. NECK: Trachea midline. No JVD. No meningismus CARDIOVASCULAR: Regular rate and rhythm. No murmurs rubs or gallops. RESPIRATORY: No accessory muscle use. Clear to auscultation with no wheezes Rales or rhonchi. Breath sounds equal bilaterally. GASTROINTESTINAL: Abdomen soft, non-tender, nondistended. Bowel sounds present. : Lim in place with light good urine in bag. MUSCULOSKELETAL: Extremities without clubbing, cyanosis, or edema. NEUROLOGICAL: Awake, oriented to self, and place, not to time. No obvious cranial nerve deficits. Motor grossly within normal limits, moving all extremities actively and spontaneously. Follows commands with hand squeeze bilaterally. Normal speech. Urinary Catheter: Yes Assessment to: Continue A/P Assessment and Plan NEURO: Acute encephalopathy, suspect toxic metabolic secondary to severe DKA, sepsis History of sciatica History of migraines No clinical evidence of meningitis. On dual antiplatelet therapy, not candidate for LP at this time and suspicion for meningitis low. Acute encephalopathy most likely secondary to metabolic causes CT brain 07/15/17no acute abnormality Ammonia level normal RESP: COPD Former tobacco abuse On room air. Protecting airway. DuoNeb every 6 hours when necessary CV: NSTEMI Coronary artery disease with prior stent Hypertension Hyperlipidemia Follow serial EKG and cardiac markers. Obtain limited 2-D echo IV heparin per [place] protocol for 48 hours and then transition to subcutaneous heparin. Received aspirin 300 mg MN in the ED. Continue aspirin 325 mill grams by mouth daily. Continue Effient 10 mg by mouth daily Continue pravastatin 40 mg by mouth daily. Continue metoprolol 50 mill grams by mouth twice a day Echo 03/15/17EF 55-60%. Mild MR. Patient previously seen by Dr. Reddy in 2015 - Cardiac catheterization stent to proximal RCA and mid LAD Dr. Reddy had been reconsulted and is following patient GI: GERD Nothing by mouth If patient is able to take by mouth diet can start 1999 ADA diet and transition to subcutaneous insulin per protocol Check C diff FEN/RENAL: Acute kidney injury overlying chronic kidney disease stage III Lim in [address]. Monitor I/O. Monitor electrolytes (BMP, mag, phos q6 hours) and replace as indicated. ID: Probable sepsis Diarrhea R/o C Diff Received Zosyn and vancomycin in the ED. U/a negative for infection. F/u blood cultures, urine culture. CXR clear. Continue zosyn renal dosing 2.25 q6 hours. Adjust dose with changing creatinine clearance. Check C diff. Start PO Flagyl 500 mg q8h HEME: Chronic anemia, iron deficiency Monitor CBC. Recheck iron panel. ENDO: DKA-resolved Insulin drip, DKA protocol with serial electrolytes. Transition to subcut - anion gap closed. Will confirm meal available and patient is able to eat Insulin transition orders placed PROPH: Continue IV heparin. Protonix 40 month grams IV daily for stress ulcer prophylaxis and history of GERD ACCESS: Peripheral IV providing adequate access at this time. CCT 32MIN Patient remains critically ill with multiorgan failure with acute encephalopathy persisting, severe sepsis, probable C. difficile colitis, non-ST elevation WI and renal failure. Continue ICU care due to acute chance of decompensation Jordon Craig MD Jul 16, 2017 10:21
--- NOTE | 2017-07-16 10:25 | MB ---
cc: REX ESCOBAR DATE OF CONSULTATION: 07/16/2017 HISTORY OF PRESENT ILLNESS Ms. Maynard is a 66-year-old white female with a history of coronary artery disease, myocardial infarction and coronary stenting. She was admitted with sepsis, multiorgan failure, metabolic encephalopathy and elevated troponin. She is confused. She denies angina or heart failure symptoms. PAST MEDICAL HISTORY 1. Coronary artery disease, [id number] myocardial infarction, coronary stenting in August 2015 with stenting of the LAD and RCA. 2. Congestive heart. 3. Diabetes mellitus. 4. Dyslipidemia. 5. Hypertension. 6. Asthma/COPD. 7. Gastroesophageal reflux disease. 8. Sciatica. 9. Migraine headaches. 10.Diabetic retinopathy. 11.Chronic kidney disease. 12.Anemia. 13.Smoking. PAST SURGICAL HISTORY 1. History of laminectomy. 2. History of stenting of the proximal RCA and mid LAD in August 2015. 3. Appendectomy. 4. . 5. Hysterectomy. 6. Tonsillectomy and adenoidectomy. 7. Left wrist ganglion cyst surgery. 8. Right lower extremity debridement. 9. Polypectomy. MEDICATIONS Medications at home include: 1. Folic acid. 2. Zinc. 3. Effient 10 mg a day. 4. Hydrocodone. 5. Baby aspirin. 6. Nitroglycerin p.r.n. 7. Isosorbide. 8. Spironolactone. 9. Lasix. 10.Insulin detemir. 11.Pravastatin. 12.Ranitidine. 13.Norvasc. 14.Metoprolol. 15.Gabapentin. 16.Lisinopril. ALLERGIES PROPOXYPHENE. SOCIAL HISTORY The patient quit smoking 15 years ago. She does not drink alcohol. FAMILY HISTORY Negative for heart disease. REVIEW OF SYSTEMS Otherwise negative. PHYSICAL EXAMINATION VITAL SIGNS: Blood pressure 106/52, pulse 67 and regular. HEENT: Negative. 2+ carotid upstrokes. No bruits. LUNGS: Clear. HEART: Regular with no murmur or gallop. ABDOMEN: Soft. No bruits. EXTREMITIES: Without edema. 1-2+ distal pulses. NEUROLOGIC: Grossly nonfocal. The patient is confused. EKG EKG was reviewed and showed normal sinus rhythm, left axis, anteroseptal Q-waves and diffuse ST-T changes. Follow-up EKG is unchanged. LABORATORY Hemoglobin 10.2. Potassium 3.8. Creatinine 2.44. Glucose 679, 509 and 298. AST and ALT normal. CK 332 and 449. Troponin 0.52, 0.89, 1.66, and 3.29. DIAGNOSIS 1. [id number] myocardial infarction. 2. Coronary artery disease, history of multivessel stenting. 3. Hypertension. 4. Dyslipidemia. 5. Diabetes mellitus. 6. DKA. 7. Metabolic encephalopathy. 8. Acute exacerbation of chronic kidney disease. 9. Anemia. DISPOSITION Ms. Maynard will be monitored in the ICU. I recommend continued therapy with beta walker, Effient and aspirin. We will also change pravastatin to high-dose atorvastatin. At this time her kidney function is significantly impaired and she has significant risk of contrast nephropathy in case invasive strategy is pursued. I recommend conservative management for now. If she becomes unstable from a cardiac standpoint, we will proceed with cardiac catheterization and possible coronary intervention. She will be followed by cardiology during her hospitalization. MD MAGGIE Angel/ANASTASIA /9:39 AM /9:57 AM STEVAN
[2017-07-16] MEDS ORDERED: GLUCAGON 1 MG/ML VIAL OTHER PRN (10:30)
[2017-07-16] MEDS ORDERED: DEXTROSE 50% IN WATER 50 ML VIAL(D50) IV PRN (10:30)
[2017-07-16] MEDS ORDERED: DC Insulin drip 2 hrs post basal insulin dose ONE (10:30)
[2017-07-16] MEDS ORDERED: DC previous DKA orders (HMC 1917) ONE (10:30)
[2017-07-16] MEDS: INSULIN ASPART SUPPLEMENTAL SCALE SQ SCH ×3 (11:00→20:32)
[2017-07-16 11:19] LABS: APTT (PATIENT) 22.5 SEC (24.3-30.1); INTERNATIONAL NORMALIZED RATIO 0.9 RATIO
[2017-07-16 11:48] LABS: ALKALINE PHOSPHATASE 119 U/L (45-117); ALT (GPT) 14 U/L (10-53); ANION GAP 9 MEQ/L (5-15); AST (GOT) 36 U/L (15-37); BICARBONATE 22.3 MEQ/L (21.0-32.0); BLOOD UREA NITROGEN 50 MG/DL (7-18); CHLORIDE 113 MEQ/L (98-107); GLOMERULAR FILTRATION RATE 21 ML/MIN (>89); MAGNESIUM 2.1 MG/DL (1.5-2.5); POTASSIUM 3.2 MEQ/L (3.5-5.1); SODIUM (NA) 144 MEQ/L (136-145); TOTAL BILIRUBIN ADULT 0.2 MG/DL (0.2-1.0)
[2017-07-16] MEDS: HEPARIN-D5W 25,000 U/250 ML 250 ML IV SCH (11:55)
[2017-07-16] MEDS: INSULIN DETEMIR 100 UNITS/ML VIAL SQ SCH ×2 (12:00→20:32)
[2017-07-16] MEDS: INSULIN ASPART 1,000 UNITS/10 ML VIAL SQ SCH ×2 (12:00→16:03)
[2017-07-16] MEDS ORDERED: HEPARIN SODIUM - IV 10,000 UNITS/10 ML VIAL ONE (12:03)
--- NOTE | 2017-07-16 12:22 | RADRPT ---
EXAM DATE/TIME: 07/16/2017 10:28 [facility] COMPARISON: CHEST SINGLE AP, July 15, 2017, 14:08. INDICATIONS : Shortness of breath. MEDICAL HISTORY : Hypertension. Myocardial infarction. Diabetes mellitus type 2.AFIB, CAD, SURGICAL HISTORY : Coronary artery stent. Hysterectomy.Angioplasty ENCOUNTER: Subsequent ACUITY: 2 days PAIN SCORE: 0/10 LOCATION: Bilateral chest FINDINGS: A single view of the chest demonstrates the lungs to be symmetrically aerated without evidence of mas s, infiltrate or effusion. The cardiomediastinal contours are unremarkable. Osseous structures are intact. Mild atherosclerotic changes are present in the aorta. CONCLUSION: No acute disease. Nura Niño MD on July 16, 2017 at 12:14 Board Certified Radiologist. This report was verified electronically.
[2017-07-16] MEDS ORDERED: metroNIDAZOLE 500 MG TAB PO SCH (14:00)
--- NOTE | 2017-07-16 14:02 | EKG ---
Date Performed: 07/15/2017 Time Performed: 14:39:17 PTAGE: 66 years EKG: Sinus rhythm MARKED LEFT AXIS DEVIATION SEPTAL MYOCARDIAL INFARCTION MODERATE T-WAVE ABNORMALITY, CONSIDER INFERI OR ISCHEMIA Compared to previous tracing nonspecific ST T changes are new ABNORMAL ECG PREVIOUS TRACING : 04/24/2017 05.27 DOCTOR: Celestino Delarosa Interpretating Date/Time 07/16/2017 14:02:00
--- NOTE | 2017-07-16 14:03 | EKG ---
Date Performed: 07/15/2017 Time Performed: 18:05:50 PTAGE: 66 years EKG: Sinus rhythm MARKED LEFT AXIS DEVIATION SEPTAL MYOCARDIAL INFARCTION Nonspecific ST T wave changes, which are ayaz ewhat more prominent when compared to prior tracing ABNORMAL ECG PREVIOUS TRACING : 07/15/2017 14.39 DOCTOR: Celestino Delarosa Interpretating Date/Time 07/16/2017 14:02:28
[2017-07-16 14:42] LABS: C. DIFF EPI 027 PRESUMPTIVE NEGATIVE (NEGATIVE)
--- NOTE | 2017-07-16 14:58 | EKG ---
Date Performed: 07/16/2017 Time Performed: 01:05:02 PTAGE: 66 years EKG: Sinus rhythm . Possible left anterior fascicular block Extensive ST-T changes may be due to myocardial ischemia Ab normal ECG PREVIOUS TRACING : 07/15/2017 18.05 Since previous tracing, no significant change noted DOCTOR: Celestino Delarosa Interpretating Date/Time 07/16/2017 14:56:24
[2017-07-16] MEDS ORDERED: HEPARIN SODIUM - IV 10,000 UNITS/10 ML VIAL IV PRN ×2 (16:00)
[2017-07-16] MEDS ORDERED: Vancomycin Consult Pharmacy 1 EA OTHER SCH (16:15)
[2017-07-16] MEDS ORDERED: VANCOMYCIN INJ 1,000 MG in SODIUM CHLOR 0.9% 250 ML INJ 250 ML IV ONE (17:00)
[2017-07-16] MEDS ORDERED: POTASSIUM CHLORIDE 25 MEQ EFFERVESCENT TAB PO ONE (17:00)
[2017-07-16 17:39] LABS: APTT (PATIENT) 56.1 SEC (24.3-30.1)
[2017-07-16 17:50] LABS: ANION GAP 10 MEQ/L (5-15); BETA-HYDROXYBUTYRATE 0.36 MMOL/L (0.00-0.39); BICARBONATE 22.3 MEQ/L (21.0-32.0); BLOOD UREA NITROGEN 45 MG/DL (7-18); CHLORIDE 114 MEQ/L (98-107); GLOMERULAR FILTRATION RATE 23 ML/MIN (>89); MAGNESIUM 2.1 MG/DL (1.5-2.5); POTASSIUM 3.4 MEQ/L (3.5-5.1); SODIUM (NA) 146 MEQ/L (136-145); TRANSFERRIN IRON PROFILE 113 MG/DL (200-360)
[2017-07-16 23:57] LABS: APTT (PATIENT) 31.5 SEC (24.3-30.1)
[2017-07-17] VITALS (17 sets, daily range): BP systolic 136–196; BP diastolic 65–89; PULSE 55–63; RESP 20; TEMP 97.8–98.9; O2SAT 97–100
[2017-07-17] MEDS: CHLORHEXIDINE GLUCONATE 2 % 1 PACK (2 CLOTHS) TOP SCH (02:09)
[2017-07-17] MEDS: PIPERACIL-TAZO 2.25 GM PREMIX 50 ML IV SCH ×4 (02:09→20:22)
[2017-07-17 06:02] LABS: AUTOMATED NEUTROPHIL # 11.6 TH/MM3 (1.8-7.7); BASOPHIL # 0.1 TH/MM3 (0-0.2); BASOPHIL % 0.5 % (0.0-2.0); HEMATOCRIT 29.6 % (35.0-46.0); HEMO FLAGS DIFF FINAL; LYMPH % 11.3 % (9.0-44.0); LYMPHOCYTE # 1.6 TH/MM3 (1.0-4.8); MEAN CELL VOLUME 84.2 FL (80.0-100.0); MEAN CORPUSCULAR HEMOGLOBIN 28.9 PG (27.0-34.0); MEAN CORPUSCULAR HGB CONC 34.3 % (32.0-36.0); MONO % 4.9 % (0.0-8.0); NEUT % 83.3 % (16.0-70.0); PLATELET COUNT 249 TH/MM3 (150-450); RED BLOOD COUNT 3.52 MIL/MM3 (4.00-5.30); RED CELL DISTRIBUTION WIDTH 15.1 % (11.6-17.2)
[2017-07-17 06:04] LABS: APTT (PATIENT) 55.7 SEC (24.3-30.1)
[2017-07-17] MEDS: INSULIN ASPART SUPPLEMENTAL SCALE SQ SCH ×4 (06:18→20:24)
[2017-07-17] MEDS: SODIUM CHLOR 0.9% 1000 ML INJ 1,000 ML IV SCH ×3 (06:18→22:51)
[2017-07-17] MEDS: PRASUGREL 10 MG TAB PO SCH (07:57)
[2017-07-17] MEDS: ATORVASTATIN 80 MG TAB PO SCH (07:58)
[2017-07-17] MEDS: ASPIRIN 81 MG CHEW TAB PO SCH (07:58)
[2017-07-17] MEDS: DOCUSATE SODIUM 50 MG/SENNA 8.6 MG TAB PO SCH ×2 (07:58→20:22)
[2017-07-17] MEDS: METOPROLOL TARTRATE 50 MG TAB PO SCH ×2 (07:58→20:22)
[2017-07-17] MEDS: PANTOPRAZOLE SODIUM 40 MG VIAL IV SCH (08:00)
[2017-07-17] MEDS: INSULIN ASPART 1,000 UNITS/10 ML VIAL SQ SCH ×3 (08:00→16:43)
[2017-07-17] MEDS: INSULIN DETEMIR 100 UNITS/ML VIAL SQ SCH ×2 (08:03→20:24)
--- NOTE | 2017-07-17 08:22 | PD.CARD.PN ---
Subjective Subjective Remarks Feeling better today. Denies CP or SOB. Insulin and heparin infusions running. Objective Medications Current Medications Medications (Trade) Dose Ordered Sig/Marie Route PRN Reason Start Time Stop Time Status Last Admin Dose Admin IV Flush (NS Flush) 2 ml UNSCH PRN IV FLUSH FLUSH AFTER USING IV ACCESS 07/15/17 14:00 Metoprolol Tartrate (Lopressor) 50 mg BID PO 07/15/17 21:00 07/17/17 07:58 Prasugrel (Effient) 10 mg DAILY PO 07/16/17 09:00 07/17/17 07:57 Pantoprazole Sodium (Protonix Inj) 40 mg DAILY IV 07/16/17 09:00 07/17/17 08:00 Miscellaneous Information 1 [id number] XX 07/15/17 18:00 07/15/17 18:00 Chlorhexidine Gluconate (Chlorhexidine 2% Cloth) 3 pack Taper DAILY@04 TOP 07/16/17 04:00 07/12/18 03:59 07/17/17 02:09 Chlorhexidine Gluconate (Chlorhexidine 2% Cloth) 3 pack UNSCH PRN TOP HYGIENIC CARE 07/15/17 18:00 Senna/Docusate Sodium (Jocelyn-Colace) 1 tab BID PO 07/15/17 21:00 07/17/17 07:58 Magnesium Hydroxide (Milk Of Magnesia Liq) 30 ml Q12H PRN PO MILD - MODERATE CONSTIPATION 07/15/17 18:00 Sennosides (Senokot) 17.2 mg Q12H PRN PO MODERATE - SEVERE CONSTIPATION 07/15/17 18:00 Bisacodyl (Dulcolax Supp) 10 mg DAILY PRN RECTAL SEVERE CONSITIPATION 07/15/17 18:00 Lactulose 30 ml 30 ml DAILY PRN PO SEVERE CONSITIPATION 07/15/17 18:00 Piperacillin Sod/ Tazobactam Sod (Zosyn 2.25 Gm Premix) 50 ml @ 100 mls/hr Q6H IV 07/16/17 02:00 07/17/17 02:09 Atorvastatin Calcium (Lipitor) 80 mg DAILY PO 07/16/17 10:00 07/17/17 07:58 Aspirin (Aspirin Chew) 81 mg DAILY PO 07/17/17 09:00 07/17/17 07:58 Heparin Sodium (Porcine) (Heparin Inj) 5,000 units UNSCH PRN IV APTT LESS THAN 25 07/16/17 16:00 07/16/17 12:08 Heparin Sodium (Porcine) 2500 units 2,500 units UNSCH PRN IV APTT 25 TO 39 07/16/17 16:00 Heparin Sodium/ Dextrose (Heparin-D5W Inj) 250 ml @ 0 mls/hr TITRATE IV 07/16/17 10:00 07/16/17 11:55 Insulin Detemir (Levemir Inj) 8 units Q12HR SQ 07/16/17 12:00 07/17/17 08:03 Insulin Aspart (NovoLOG INJ) 5 units TIDAC SQ 07/16/17 12:00 Dextrose (D50w (Vial) Inj) 50 ml UNSCH PRN IV HYPOGLYCEMIA-SEE COMMENTS 07/16/17 10:30 Glucagon 1 mg 1 mg UNSCH PRN OTHER HYPOGLYCEMIA-SEE COMMENTS 07/16/17 10:30 Sodium Chloride 1,000 ml @ 150 mls/hr Q6H40M IV 07/16/17 10:30 07/17/17 06:18 Pharmacy Profile Note (Vancomycin Consult Pharmacy) 0 ml @ 0 mls/hr UNSCH OTHER 07/16/17 16:15 Hydralazine HCl (Apresoline Inj) 20 mg Q4H PRN IV PUSH SBP >160 07/16/17 16:15 Vital Signs / I&O Vital Signs Date Time Temp Pulse Resp B/P Pulse Ox O2 Delivery O2 Flow Rate FiO2 07/17/17 08:00 99 07/17/17 06:00 57 196/89 99 07/17/17 06:00 57 07/17/17 05:00 56 160/75 97 07/17/17 04:00 98.9 55 153/67 98 07/17/17 04:00 55 07/17/17 03:00 58 153/71 100 07/17/17 02:00 58 158/86 98 07/17/17 02:00 58 07/17/17 01:00 56 100 07/17/17 00:00 57 07/17/17 00:00 98.4 57 159/67 100 07/16/17 23:00 55 95 07/16/17 22:00 55 162/68 99 07/16/17 22:00 55 07/16/17 21:00 58 179/72 100 07/16/17 20:00 57 07/16/17 20:00 98.6 57 171/74 100 07/16/17 19:00 98.6 55 154/65 99 07/16/17 18:00 56 07/16/17 18:00 56 172/74 99 07/16/17 17:01 57 160/64 100 07/16/17 16:01 57 160/69 99 07/16/17 16:00 58 07/16/17 15:00 56 161/65 100 07/16/17 14:00 56 07/16/17 14:00 56 165/67 100 07/16/17 13:00 55 172/72 100 07/16/17 12:01 55 166/70 78 07/16/17 12:00 55 07/16/17 11:00 54 126/87 100 07/16/17 10:00 53 142/61 99 07/16/17 10:00 53 07/16/17 09:00 80 151/65 99 I/O 07/16/17 07/16/17 07/16/17 07/17/17 07/17/17 07/17/17 06:59 14:59 22:59 06:59 14:59 22:59 Intake Total 1575 ml 1206 ml 1275 ml 1140 ml Output Total 450 ml 325 ml 450 ml 400 ml Balance 1125 ml 881 ml 825 ml 740 ml Intake Oral 60 ml 240 ml IV Total 1575 ml 1206 ml 1215 ml 900 ml Output Urine Total 450 ml 325 ml 450 ml 400 ml # Bowel Movements 1 1 Physical Exam BP running high. HR 55 No JVD Lungs: CTA Heart Reg. No murmur, gallops or rubs. Ext: No edema, warm. Neuro: Non focal Laboratory Laboratory Tests Test 07/16/17 07/16/17 07/16/17 07/16/17 10:50 11:20 17:05 23:32 Prothrombin Time 10.0 SEC Prothromb Time International 0.9 RATIO Ratio Activated Partial 22.5 SEC 56.1 SEC 31.5 SEC Thromboplast Time Sodium Level 144 MEQ/L 146 MEQ/L Potassium Level 3.2 MEQ/L 3.4 MEQ/L Chloride Level 113 MEQ/L 114 MEQ/L Carbon Dioxide Level 22.3 MEQ/L 22.3 MEQ/L Anion Gap 9 MEQ/L 10 MEQ/L Blood Urea Nitrogen 50 MG/DL 45 MG/DL Creatinine 2.33 MG/DL 2.12 MG/DL Estimat Glomerular Filtration 21 ML/MIN 23 ML/MIN Rate Random Glucose 167 MG/DL 110 MG/DL Calcium Level 8.3 MG/DL 8.7 MG/DL Phosphorus Level 2.6 MG/DL 2.7 MG/DL Magnesium Level 2.1 MG/DL 2.1 MG/DL Total Bilirubin 0.2 MG/DL Aspartate Amino Transf 36 U/L (AST/SGOT) Alanine Aminotransferase 14 U/L (ALT/SGPT) Alkaline Phosphatase 119 U/L Total Protein 5.0 GM/DL Albumin 1.8 GM/DL Stool C. difficile Toxin (PCR) NEGATIVE Stl C. difficile Toxin PRESUMPTIVE Epiderm 027 NEGATIVE Iron Level 118 MCG/DL Total Iron Binding Capacity 158 MCG/DL Percent Iron Saturation 74.6 % B-Hydroxybutyrate 0.36 MMOL/L Test 07/17/17 04:11 White Blood Count 14.0 TH/MM3 Red Blood Count 3.52 MIL/MM3 Hemoglobin 10.2 GM/DL Hematocrit 29.6 % Mean Corpuscular Volume 84.2 FL Mean Corpuscular Hemoglobin 28.9 PG Mean Corpuscular Hemoglobin 34.3 % Concent Red Cell Distribution Width 15.1 % Platelet Count 249 TH/MM3 Mean Platelet Volume 9.5 FL Neutrophils (%) (Auto) 83.3 % Lymphocytes (%) (Auto) 11.3 % Monocytes (%) (Auto) 4.9 % Eosinophils (%) (Auto) 0.0 % Basophils (%) (Auto) 0.5 % Neutrophils # (Auto) 11.6 TH/MM3 Lymphocytes # (Auto) 1.6 TH/MM3 Monocytes # (Auto) 0.7 TH/MM3 Eosinophils # (Auto) 0.0 TH/MM3 Basophils # (Auto) 0.1 TH/MM3 CBC Comment DIFF FINAL Differential Comment Activated Partial 55.7 SEC Thromboplast Time Imaging Last 48 hours Impressions Chest X-Ray 07/16/17 0000 Signed Impressions: Service Date/Time: Sunday, July 16, 2017 10:28 - CONCLUSION: No acute disease. Nura Niño MD Head CT 07/15/17 1354 Signed Impressions: Service Date/Time: June 16:59 - CONCLUSION: 1. No acute intercranial abnormality. Wally Trimble MD Chest X-Ray 07/15/17 1354 Signed Impressions: Service Date/Time: June 14:08 - CONCLUSION: No acute disease. Nura Niño MD Assessment and Plan Problem List: (1) NSTEMI (non-ST elevated myocardial infarction) (2) DKA (diabetic ketoacidoses) (3) Sepsis (4) CAD (coronary artery disease) (5) S/P coronary artery stent placement Assessment and Plan BP high will restart Lisinopril. Follow renal function closely. BS improved insulin drip is now discontinued. CV stable otherwise continue supportive measures. Following with you. Code Status Full Discussed Condition With Patient and staff reporter Problem Qualifiers (1) DKA (diabetic ketoacidoses): (2) Sepsis: Qualified Code: A41.9 - Sepsis, due to unspecified organism Spencer Palomino MD Jul 17, 2017 08:22
[2017-07-17] MEDS: LISINOPRIL 10 MG TAB PO SCH (08:59)
[2017-07-17] MEDS: hydrALAZINE HCL 20 MG/ML VIAL IV PUSH PRN ×2 (10:50→16:48)
[2017-07-17] MEDS: HEPARIN-D5W 25,000 U/250 ML 250 ML IV SCH (12:33)
[2017-07-17 15:01] LABS: HEMOGLOBIN A1b 1.2 %; HEMOGLOBIN Ao 75.2 %; HEMOGLOBIN LA1C 2.4 %; HEMOGLOBIN P3 5.9 %
[2017-07-17 15:15] LABS: APTT (PATIENT) 38.8 SEC (24.3-30.1)
--- NOTE | 2017-07-17 18:12 | HHI.CCPN ---
Subjective Remarks/Hospital Course History from patient is very limited due to her mental status. I attempted to contact her at the phone numbers provided but there was no answer. He had already left the emergency department (ED RN states he was there briefly). History obtained from discussion with the ED physician and review of EMR. 66-year-old female with past medical history of diabetes mellitus ( diagnosed in 1998), hypertension, coronary artery disease with prior stents, CHF , hyperlipidemia, asthma/COPD, chronic kidney disease stage III, prior tobacco abuse, iron deficiency anemia who presented to [facility] emergency department via [facility] after she was found altered at home today. Reportedly she was last seen normal 2 days prior. She was oriented to self, date of , president, but not year. She denies chest pain, shortness of breath, headache, neck pain, dysuria, abdominal pain, back pain, nausea, vomiting, diarrhea. Remainder review of systems negative. ED workup reveals DKA with pH of 7.11/ PaCO2 of 9/PA O2 of 134/bicarbonate 3/base deficit of 25.9. Anion gap is 30, glucose is 895, beta hydroxybutyrate 17.7. She has acute kidney injury with a creatinine of 2.51 (baseline 0.8 - 1. 2). Troponin is 0.89. EKG shows normal sinus rhythm at a rate of [address] changes. White blood cell count is 21.9. Urinalysis is negative for evidence of infection. CXR clear. Blood cultures have been obtained. She has received vancomycin and Zosyn in the ED. She has received 2 L normal saline bolus and has been started on an insulin drip. 07/16: Patient remained confused, but oriented to person and place. She refuses to be examined more than few minutes. White count is slightly improved, from 22, 000 to 20,000. Troponin peaked at 3.4. Dr. Londonoat following. IV heparin and aspirin started per his request. Once creatinine is improved he'll consider cardiac catheterization. UO excellent. Creat remains high at 2.4 (patient has CKD 1.0-24 baseline creat) Subjective: 07/17 - Alert and mental status returned to baseline. She denies chest pain/ pressure or SOB. On RA. Transitioned off insulin drip to subcut. Objective Vital Signs Date Time Temp Pulse Resp B/P Pulse Ox O2 Delivery O2 Flow Rate FiO2 07/17/17 18:00 60 07/17/17 16:00 98.4 174/79 98 07/15/17 22:00 16 07/15/17 19:08 Room Air Intake and Output 07/16/17 07/16/17 07/17/17 08:00 16:00 00:00 Intake Total 1575 ml 1206 ml 1275 ml Output Total 450 ml 325 ml 450 ml Balance 1125 ml 881 ml 825 ml Result Diagram: 07/17/17 0411 07/16/17 1705 Other Results Microbiology Date/Time Procedure Status Source Growth 07/15/17 19:00 Urine Culture - Final Complete Urine Clean Catch NO GROWTH IN 48 HOURS. Objective Remarks GENERAL: Well-nourished, well-developed patient who is laying in the ICU bed. SKIN: Warm and dry. Scar over medial aspect of right del cid with scab and granulation tissue. No surrounding erythema. HEAD: Atraumatic. Normocephalic. EYES: Pupils equal and round, 3 mm and reactive bilaterally. No scleral icterus. ENT: No nasal bleeding or discharge. Mucous membranes very dry. NECK: Trachea midline. No JVD. No meningismus CARDIOVASCULAR: Regular rate and rhythm. No murmurs rubs or gallops. RESPIRATORY: No accessory muscle use. Clear to auscultation with no wheezes Rales or rhonchi. Breath sounds equal bilaterally. GASTROINTESTINAL: Abdomen soft, non-tender, nondistended. Bowel sounds present. : Lim in place with light good urine in bag. MUSCULOSKELETAL: Extremities without clubbing, cyanosis, or edema. NEUROLOGICAL: Awake, oriented to self, and place, not to time. No obvious cranial nerve deficits. Motor grossly within normal limits, moving all extremities actively and spontaneously. Follows commands with hand squeeze bilaterally. Normal speech. A/P Assessment and Plan NEURO: Acute encephalopathy, suspect toxic metabolic secondary to severe DKA, sepsis History of sciatica History of migraines No clinical evidence of meningitis. On dual antiplatelet therapy, not candidate for LP at this time and suspicion for meningitis low. Acute encephalopathy most likely secondary to metabolic causes CT brain 07/15/17no acute abnormality Ammonia level normal RESP: COPD Former tobacco abuse On room air. Protecting airway. DuoNeb every 6 hours when necessary CV: NSTEMI Coronary artery disease with prior stent Hypertension Hyperlipidemia Follow serial EKG and cardiac markers. Obtain limited 2-D echo IV heparin per [place] protocol for 48 hours and then transition to subcutaneous heparin. Received aspirin 300 mg [place] in the ED. Continue aspirin 325 mill grams by mouth daily. Continue Effient 10 mg by mouth daily Continue pravastatin 40 mg by mouth daily. Continue metoprolol 50 mill grams by mouth twice a day Echo 03/15/17EF 55-60%. Mild MR. Patient previously seen by Dr. Reddy in 2015 - Cardiac catheterization stent to proximal RCA and mid LAD Dr. Reddy had been reconsulted and is following patient GI: GERD Nothing by mouth If patient is able to take by mouth diet can start 1999 ADA diet and transition to subcutaneous insulin per protocol Check C diff FEN/RENAL: Acute kidney injury overlying chronic kidney disease stage III Lim in place. Monitor I/O. Monitor electrolytes (BMP, mag, phos q6 hours) and replace as indicated. ID: Probable sepsis Diarrhea R/o C Diff Received Zosyn and vancomycin in the ED. U/a negative for infection. F/u blood cultures, urine culture. CXR clear. Continue zosyn renal dosing 2.25 q6 hours. Adjust dose with changing creatinine clearance. Check C diff. Start PO Flagyl 500 mg q8h HEME: Chronic anemia, iron deficiency Monitor CBC. Recheck iron panel. ENDO: DKA-resolved Insulin drip, DKA protocol with serial electrolytes. Transition to subcut - anion gap closed. Will confirm meal available and patient is able to eat Insulin transition orders placed PROPH: Continue IV heparin. Protonix 40 month grams IV daily for stress ulcer prophylaxis and history of GERD ACCESS: Peripheral IV providing adequate access at this time. CCT 32MIN Patient remains critically ill with multiorgan failure with acute encephalopathy persisting, severe sepsis, probable C. difficile colitis, non-ST elevation [place] and renal failure. Continue ICU care due to acute chance of decompensation Jackie Castaneda MD Jul 17, 2017 18:12
--- NOTE | 2017-07-17 18:33 | PD.TRANSFR ---
Transfer Summary Admission Date Jul 15, 2017 at 17:56 Transfer Date: Jul 17, 2017 Admitting Diagnosis sepsis w/multiorgan failure, metabolic encephalopathy, elevated T Diagnoses: (1) H/O tobacco use, presenting hazards to health Diagnosis: Secondary (2) NSTEMI, initial episode of care Diagnosis: Principal (3) COPD (chronic obstructive pulmonary disease) Diagnosis: Secondary (4) HTN (hypertension) Diagnosis: Secondary (5) CONOR (acute kidney injury) Diagnosis: Secondary (6) CAD (coronary artery disease) Diagnosis: Secondary (7) DKA (diabetic ketoacidoses) Diagnosis: Principal (8) NSTEMI (non-ST elevated myocardial infarction) Diagnosis: Principal (9) GERD (gastroesophageal reflux disease) Diagnosis: Secondary (10) Acute encephalopathy Diagnosis: Secondary (11) CKD (chronic kidney disease) stage 3, GFR 30-59 ml/min Diagnosis: Secondary Transfer Summary/Subjective History from patient is very limited due to her mental status. I attempted to contact her at the phone numbers provided but there was no answer. He had already left the emergency department (ED RN states he was there briefly). History obtained from discussion with the ED physician and review of EMR. 66-year-old female with past medical history of diabetes mellitus ( diagnosed in 1998), hypertension, coronary artery disease with prior stents, CHF , hyperlipidemia, asthma/COPD, chronic kidney disease stage III, prior tobacco abuse, iron deficiency anemia who presented to [facility] emergency department via [facility] after she was found altered at home today. Reportedly she was last seen normal 2 days prior. She was oriented to self, date of , president, but not year. She denies chest pain, shortness of breath, headache, neck pain, dysuria, abdominal pain, back pain, nausea, vomiting, diarrhea. Remainder review of systems negative. ED workup reveals DKA with pH of 7.11/ PaCO2 of 9/PA O2 of 134/bicarbonate 3/base deficit of 25.9. Anion gap is 30, glucose is 895, beta hydroxybutyrate 17.7. She has acute kidney injury with a creatinine of 2.51 (baseline 0.8 - 1. 2). Troponin is 0.89. EKG shows normal sinus rhythm at a rate of [address] changes. White blood cell count is 21.9. Urinalysis is negative for evidence of infection. CXR clear. Blood cultures have been obtained. She has received vancomycin and Zosyn in the ED. She has received 2 L normal saline bolus and has been started on an insulin drip. 07/16: Patient remained confused, but oriented to person and place. She refuses to be examined more than few minutes. White count is slightly improved, from 22, 000 to 20,000. Troponin peaked at 3.4. Dr. Londonoat following. IV heparin and aspirin started per his request. Once creatinine is improved he'll consider cardiac catheterization. UO excellent. Creat remains high at 2.4 (patient has CKD 1.0-24 baseline creat) Subjective: 07/17 - Alert and mental status returned to baseline. She denies chest pain/ pressure or SOB. On RA. Transitioned off insulin drip to subcut. Eating small amounts, RN holding scheduled Novolog 5 units tid. Slow creatinine downtrend, 2.1 Objective Vital Signs Date Time Temp Pulse Resp B/P Pulse Ox O2 Delivery O2 Flow Rate FiO2 07/17/17 18:00 60 07/17/17 16:00 98.4 174/79 98 07/15/17 22:00 16 07/15/17 19:08 Room Air Intake and Output 07/16/17 07/16/17 07/17/17 08:00 16:00 00:00 Intake Total 1575 ml 1206 ml 1275 ml Output Total 450 ml 325 ml 450 ml Balance 1125 ml 881 ml 825 ml Result Diagram: 07/17/17 0411 07/16/17 1705 Other Results Microbiology Date/Time Procedure Status Source Growth 07/15/17 19:00 Urine Culture - Final Complete Urine Clean Catch NO GROWTH IN 48 HOURS. Objective Remarks GENERAL: Well-nourished, well-developed patient who is sitting up in the ICU bed. SKIN: Warm and dry. Scar over medial aspect of right del cid with scab and granulation tissue. No surrounding erythema. HEAD: Atraumatic. Normocephalic. EYES: Pupils equal and round, 3 mm and reactive bilaterally. No scleral icterus. ENT: No nasal bleeding or discharge. Mucous membranes very dry. NECK: Trachea midline. No JVD. No meningismus CARDIOVASCULAR: Regular rate and rhythm. No murmurs rubs or gallops. RESPIRATORY: No accessory muscle use. Clear to auscultation with no wheezes Rales or rhonchi. Breath sounds equal bilaterally. GASTROINTESTINAL: Abdomen soft, non-tender, nondistended. Bowel sounds present. : Lim in place with light good urine in bag. MUSCULOSKELETAL: Extremities without clubbing, cyanosis, or edema. NEUROLOGICAL: Awake, oriented to self, place, year, circumstance. No obvious cranial nerve deficits. Motor grossly within normal limits, moving all extremities actively and spontaneously. Normal speech. A/P Problem List: (1) H/O tobacco use, presenting hazards to health ICD Code: Z87.891 Status: Chronic (2) NSTEMI (non-ST elevated myocardial infarction) ICD Code: I21.4 Status: Acute (3) DKA (diabetic ketoacidoses) ICD Code: E13.10 Status: Resolved (4) CAD (coronary artery disease) ICD Code: I25.10 Status: Chronic (5) Metabolic encephalopathy ICD Code: G93.41 Status: Resolved (6) GERD (gastroesophageal reflux disease) ICD Code: K21.9 Status: Chronic (7) Acute encephalopathy ICD Code: G93.40 Status: Resolved (8) CKD (chronic kidney disease) stage 3, GFR 30-59 ml/min ICD Code: N18.3 Status: Chronic (9) CONOR (acute kidney injury) ICD Code: N17.9 Status: Acute (10) COPD (chronic obstructive pulmonary disease) ICD Code: J44.9 Status: Chronic (11) IDDM (insulin dependent diabetes mellitus) ICD Code: E11.9 Status: Chronic (12) Anemia ICD Code: D64.9 Status: Chronic Assessment and Plan NEURO: Acute encephalopathy, suspect toxic metabolic secondary to severe DKA, sepsis, resolved History of sciatica History of migraines No clinical evidence of meningitis. On dual antiplatelet therapy, not candidate for LP at this time and suspicion for meningitis low. Acute encephalopathy most likely secondary to metabolic causes. Now improved with resolution of metabolic abnormalities. CT brain 07/15/17no acute abnormality Ammonia level normal RESP: COPD Former tobacco abuse On room air. Protecting airway. DuoNeb every 6 hours when necessary CV: NSTEMI Coronary artery disease with prior stent Hypertension Hyperlipidemia IV heparin per [place] protocol for 48 hours and then transition to subcutaneous heparin per d/w Dr. Reddy Received aspirin 300 mg [place] in the ED. Continue aspirin 81 mill grams by mouth daily. Continue Effient 10 mg by mouth daily Continue atorvastatin 80 mg by mouth daily. Continue metoprolol 50 mill grams by mouth twice a day Lisinopril 10 mg daily per cardiology, monitor renal function. Resume norvasc 10 mg po daily, imdur 30 mg daily. Echo 03/15/17EF 55-60%. Mild MRMabel Patient previously seen by Dr. Reddy in 2014 - Cardiac catheterization stent to proximal RCA and mid LAD Dr. Reddy had been reconsulted and is following patient, tentatively plan to cath when renal function improved. GI: GERD 1999 ADA diet pepcid FEN/RENAL: Acute kidney injury overlying chronic kidney disease stage III Monitor I/O. Monitor electrolytes (BMP, mag, phos q6 hours) and replace as indicated. Remove Lim. Decrease IVF to 50/hr. ID: Leukocytosis Diarrhea R/o C Diff Received Zosyn and vancomycin in the ED. NSTEMI may have been inciting event for DKA and leukocytosis but sepsis difficult to r/o. No clear source as U/a negative for infection. CXR clear. 12/04 blood cultures with bacillus contaminant. On zosyn renal dosing 2.25 q6 hours , can d/c if repeat blood cultures negative as patient is clinically improved. . Adjust dose with changing creatinine clearance. Dog bite wound granulating without evidence of cellulitis. C diff negative. D/c Flagyl HEME: Chronic anemia, iron deficiency Monitor CBC. Recheck iron panel. ENDO: DKA-resolved Transition to subcut when anion gap closed. medium dose sliding scale. Detemir 8 units subcutaneous every 12. Hold novolog 5 tid for now, po intake decreased from baseline PROPH: Continue IV heparin for now, transition orders written for subcut after 48 hours per d/w Dr. Reddy. D/c Protonix 40 IV and change to pepcid po for h/ o GERD (no longer requiring stress ulcer prophylaxis) ACCESS: Peripheral IV providing adequate access at this time. Transfer to CICU. Patient updated. Consult hospitalist to assume care 07/18 Level 2 Problem Qualifiers (1) DKA (diabetic ketoacidoses): Jackie Castaneda MD Jul 17, 2017 18:33
[2017-07-18] VITALS (14 sets, daily range): BP systolic 101–161; BP diastolic 55–99; PULSE 58–91; RESP 18; TEMP 97.6–98.4; O2SAT 97–99
[2017-07-18 00:36] LABS: APTT (PATIENT) 62.9 SEC (24.3-30.1)
[2017-07-18] MEDS: PIPERACIL-TAZO 2.25 GM PREMIX 50 ML IV SCH ×4 (02:30→20:46)
[2017-07-18] MEDS: CHLORHEXIDINE GLUCONATE 2 % 1 PACK (2 CLOTHS) TOP SCH (02:30)
[2017-07-18 05:29] LABS: APTT (PATIENT) 79.4 SEC (24.3-30.1)
[2017-07-18] MEDS: INSULIN ASPART SUPPLEMENTAL SCALE SQ SCH ×4 (06:10→20:48)
[2017-07-18] MEDS: FAMOTIDINE 20 MG TAB PO SCH ×2 (07:42→20:46)
[2017-07-18] MEDS: ISOSORBIDE MONONITRATE 30 MG TAB PO SCH (07:42)
[2017-07-18] MEDS: ASPIRIN 81 MG CHEW TAB PO SCH (07:42)
[2017-07-18] MEDS: LISINOPRIL 10 MG TAB PO SCH (07:43)
[2017-07-18] MEDS: METOPROLOL TARTRATE 50 MG TAB PO SCH ×2 (07:43→20:46)
[2017-07-18] MEDS: PRASUGREL 10 MG TAB PO SCH (07:43)
[2017-07-18] MEDS: ATORVASTATIN 80 MG TAB PO SCH (07:43)
[2017-07-18] MEDS: hydrALAZINE HCL 20 MG/ML VIAL IV PUSH PRN (07:44)
[2017-07-18] MEDS: INSULIN DETEMIR 100 UNITS/ML VIAL SQ SCH ×2 (07:56→20:47)
[2017-07-18] MEDS: DOCUSATE SODIUM 50 MG/SENNA 8.6 MG TAB PO SCH ×2 (07:56→20:46)
[2017-07-18 10:46] LABS: HEMATOCRIT 32.3 % (35.0-46.0); MEAN CELL VOLUME 83.8 FL (80.0-100.0); MEAN CORPUSCULAR HEMOGLOBIN 29.6 PG (27.0-34.0); MEAN CORPUSCULAR HGB CONC 35.3 % (32.0-36.0); PLATELET COUNT 198 TH/MM3 (150-450); RED BLOOD COUNT 3.86 MIL/MM3 (4.00-5.30); REVIEW FLAG FINAL; WHITE BLOOD COUNT 6.5 TH/MM3 (4.0-11.0)
[2017-07-18 11:18] LABS: BICARBONATE 19.9 MEQ/L (21.0-32.0)
[2017-07-18] MEDS ORDERED: POTASSIUM CHLORIDE 20 MEQ CONTROLLED RELEASE TAB PO ONE (11:59)
--- NOTE | 2017-07-18 13:20 | HHI.PR ---
Subjective Remarks Pt seen earlier this morning Pt states that she feels ok. Denies any pain, chest pain, SOB, nausea or vomiting. At times gets some chills here and there but no fevers reported. Objective Vitals Vital Signs Date Time Temp Pulse Resp B/P (MAP) Pulse Ox O2 Delivery O2 Flow Rate FiO2 07/18/17 12:00 59 07/18/17 12:00 97.6 59 18 101/55 (70) 97 07/18/17 10:00 59 07/18/17 08:00 61 07/18/17 08:00 98.4 61 124/99 (107) 99 07/18/17 07:56 97 07/18/17 06:00 58 07/18/17 04:00 98.2 60 18 161/76 (104) 97 07/18/17 04:00 60 07/18/17 02:00 91 07/18/17 00:00 98.3 59 18 154/72 (99) 98 07/18/17 00:00 59 07/17/17 22:00 59 07/17/17 20:00 98.1 63 20 136/65 (88) 98 07/17/17 20:00 63 07/17/17 19:40 97 07/17/17 18:00 60 07/17/17 16:00 57 07/17/17 16:00 98.4 56 174/79 (110) 98 07/17/17 14:00 56 I/O 07/17/17 07/17/17 07/17/17 07/18/17 07/18/17 07/18/17 07:00 15:00 23:00 07:00 15:00 23:00 Intake Total 1140 ml 1710 ml 626 ml 708 ml Output Total 400 ml 500 ml 300 ml 225 ml Balance 740 ml 1210 ml 326 ml 483 ml Intake Oral 240 ml 480 ml 240 ml 240 ml IV Total 900 ml 1230 ml 386 ml 468 ml Output Urine Total 400 ml 500 ml 300 ml 225 ml # Bowel Movements 1 Result Diagram: 07/18/17 0740 07/18/17 0740 Imaging Last Impressions Chest X-Ray 07/16/17 0000 Signed Impressions: Service Date/Time: Sunday, July 16, 2017 10:28 - CONCLUSION: No acute disease. Nura Niño MD Head CT 07/15/17 1354 Signed Impressions: Service Date/Time: June 16:59 - CONCLUSION: 1. No acute intercranial abnormality. Wally Trimble MD Objective Remarks GENERAL: Well-nourished, well-developed patient who is laying down in the ICU bed. playing [employer] on her phone EYES: EOMI ENT: No nasal bleeding or discharge. Mucous membranes very dry. NECK: Trachea midline. No JVD. No meningismus CARDIOVASCULAR: Regular rate and rhythm. No murmurs rubs or gallops. RESPIRATORY: No accessory muscle use. Clear to auscultation with no wheezes GASTROINTESTINAL: Abdomen soft, non-tender, nondistended. Bowel sounds present. MUSCULOSKELETAL: Extremities without edema. NEUROLOGICAL: Awake, alert, answers questions appropriately. Motor grossly within normal limits, moving all extremities actively and spontaneously. A/P Problem List: (1) H/O tobacco use, presenting hazards to health ICD Code: Z87.891 - Personal history of nicotine dependence Status: Chronic (2) NSTEMI, initial episode of care ICD Code: I21.4 - Non-ST elevation (NSTEMI) myocardial infarction Status: Acute (3) COPD (chronic obstructive pulmonary disease) ICD Code: J44.9 - Chronic obstructive pulmonary disease, unspecified Status: Chronic (4) HTN (hypertension) ICD Code: I10 - Essential (primary) hypertension Status: Chronic (5) CONOR (acute kidney injury) ICD Code: N17.9 - Acute kidney failure, unspecified Status: Acute (6) CAD (coronary artery disease) ICD Code: I25.10 - Atherosclerotic heart disease of [place] coronary artery without angina pectoris Status: Chronic (7) DKA (diabetic ketoacidoses) ICD Code: E13.10 - Other specified diabetes mellitus with ketoacidosis without coma Status: Resolved (8) NSTEMI (non-ST elevated myocardial infarction) ICD Code: I21.4 - Non-ST elevation (NSTEMI) myocardial infarction Status: Acute (9) GERD (gastroesophageal reflux disease) ICD Code: K21.9 - Gastro-esophageal reflux disease without esophagitis Status: Chronic (10) Acute encephalopathy ICD Code: G93.40 - Encephalopathy, unspecified Status: Resolved (11) CKD (chronic kidney disease) stage 3, GFR 30-59 ml/min ICD Code: N18.3 - Chronic kidney disease, stage 3 (moderate) Status: Chronic Assessment and Plan NEURO: Acute encephalopathy, suspect toxic metabolic secondary to severe DKA, sepsis, resolved History of sciatica History of migraines No clinical evidence of meningitis. On dual antiplatelet therapy, not candidate for LP at this time and suspicion for meningitis low. Acute encephalopathy most likely secondary to metabolic causes. Now improved with resolution of metabolic abnormalities. CT brain 07/15/17no acute abnormality Ammonia level normal RESP: COPD Former tobacco abuse On room air. Protecting airway. DuoNeb every 6 hours when necessary CV: NSTEMI Coronary artery disease with prior stent Hypertension Hyperlipidemia IV heparin per [place] protocol for 48 hours and then transition to subcutaneous heparin per d/w Dr. Reddy. IV heparin will be discontinued this morning. Received aspirin 300 mg [place] in the ED. Continue aspirin 81 mill grams by mouth daily. Continue Effient 10 mg by mouth daily Continue atorvastatin 80 mg by mouth daily. Continue metoprolol 50 mill grams by mouth twice a day Lisinopril 10 mg daily per cardiology, monitor renal function. on norvasc 10 mg po daily, imdur 30 mg daily. Echo 03/15/17EF 55-60%. Mild MR. Patient previously seen by Dr. Reddy in 2015 - Cardiac catheterization stent to proximal RCA and mid LAD Dr. Reddy had been reconsulted and is following patient, tentatively plan to cath when renal function improved. Cr today 1.49 GI: GERD 1999 ADA diet pepcid FEN/RENAL: Acute kidney injury overlying chronic kidney disease stage III Monitor I/O. Monitor electrolytes (BMP, mag, phos q6 hours) and replace as indicated. Remove Lim. Decrease IVF to 50/hr. ID: Leukocytosis Diarrhea R/o C Diff Received Zosyn and vancomycin in the ED. NSTEMI may have been inciting event for DKA and leukocytosis but sepsis difficult to r/o. No clear source as U/a negative for infection. CXR clear. 1/ 6 blood cultures with bacillus contaminant. f/u on final blood cultures. On zosyn renal dosing 2.25 q6 hours, can d/c if repeat blood cultures negative as patient is clinically improved. . Adjust dose with changing creatinine clearance. Dog bite wound granulating without evidence of cellulitis. C diff negative. D/c Flagyl HEME: Chronic anemia, iron deficiency Monitor CBC. Recheck iron panel. ENDO: DKA-resolved on levemir 8 units subcutaneous every 12. cover w low dose ISS Hold novolog 5 tid for now, po intake decreased from baseline PROPH: on sq heparin s/p heparin gtt. pepcid po for h/o GERD (no longer requiring stress ulcer prophylaxis) ACCESS: Peripheral IV providing adequate access at this time. Discharge Planning monitor in ICU for now but transfer to [facility] later in the day Problem Qualifiers (1) DKA (diabetic ketoacidoses): Veronica Guillory MD Jul 18, 2017 13:20
--- NOTE | 2017-07-18 13:33 | PD.CARD.PN ---
Subjective Subjective Remarks No complaints. Denies CP or SOB. Bedside echo in progress. Objective Medications Current Medications Medications (Trade) Dose Ordered Sig/Marie Route PRN Reason Start Time Stop Time Status Last Admin Dose Admin IV Flush (NS Flush) 2 ml UNSCH PRN IV FLUSH FLUSH AFTER USING IV ACCESS 07/15/17 14:00 Metoprolol Tartrate (Lopressor) 50 mg BID PO 07/15/17 21:00 07/18/17 07:43 Prasugrel (Effient) 10 mg DAILY PO 07/16/17 09:00 07/18/17 07:43 Albuterol/ Ipratropium (Duoneb Neb) 1 ampule Q2HR NEB PRN INH WHEEZING 07/15/17 18:00 Miscellaneous Information 1 Q361D XX 07/15/17 18:00 07/15/17 18:00 Chlorhexidine Gluconate (Chlorhexidine 2% Cloth) 3 pack Taper DAILY@04 TOP 07/16/17 04:00 07/12/18 03:59 07/18/17 02:30 Chlorhexidine Gluconate (Chlorhexidine 2% Cloth) 3 pack UNSCH PRN TOP HYGIENIC CARE 07/15/17 18:00 Senna/Docusate Sodium (Jocelyn-Colace) 1 tab BID PO 07/15/17 21:00 07/17/17 20:22 Magnesium Hydroxide (Milk Of Magnesia Liq) 30 ml Q12H PRN PO MILD - MODERATE CONSTIPATION 07/15/17 18:00 Sennosides (Senokot) 17.2 mg Q12H PRN PO MODERATE - SEVERE CONSTIPATION 07/15/17 18:00 Bisacodyl (Dulcolax Supp) 10 mg DAILY PRN RECTAL SEVERE CONSITIPATION 07/15/17 18:00 Lactulose (Lactulose Liq) 30 ml DAILY PRN PO SEVERE CONSITIPATION 07/15/17 18:00 Piperacillin Sod/ Tazobactam Sod 50 ml @ 100 mls/hr Q6H IV 07/16/17 02:00 07/18/17 07:41 Atorvastatin Calcium (Lipitor) 80 mg DAILY PO 07/16/17 10:00 07/18/17 07:43 Aspirin (Aspirin Chew) 81 mg DAILY PO 07/17/17 09:00 07/18/17 07:42 Heparin Sodium (Porcine) (Heparin Inj) 2,500 units UNSCH PRN IV APTT 25 TO 39 07/16/17 16:00 Insulin Detemir (Levemir Inj) 8 units Q12HR SQ 07/16/17 12:00 07/17/17 20:24 Insulin Aspart (NovoLOG SUPPLEMENTAL SCALE) 1 ACHS SLIDING SCALE SQ 07/16/17 11:00 07/17/17 10:56 Dextrose (D50w (Vial) Inj) 50 ml UNSCH PRN IV HYPOGLYCEMIA-SEE COMMENTS 07/16/17 10:30 Glucagon (Glucagon Inj) 1 mg UNSCH PRN OTHER HYPOGLYCEMIA-SEE COMMENTS 07/16/17 10:30 Sodium Chloride 1,000 ml @ 50 mls/hr Q20H IV 07/16/17 10:30 07/17/17 22:51 Pharmacy Profile Note 0 ml @ 0 mls/hr UNSCH OTHER 07/16/17 16:15 Hydralazine HCl (Apresoline Inj) 20 mg Q4H PRN IV PUSH SBP >160 07/16/17 16:15 07/18/17 07:44 Lisinopril (Prinivil) 10 mg DAILY PO 07/17/17 09:00 07/18/17 07:43 Amlodipine Besylate (Norvasc) 10 mg DAILY PO 07/17/17 18:30 07/18/17 07:42 Isosorbide Mononitrate (Imdur) 30 mg DAILY PO 07/18/17 09:00 07/18/17 07:42 Heparin Sodium (Porcine) (Heparin Inj) 5,000 units Q12HR SQ 07/18/17 21:00 Famotidine (Pepcid) 10 mg BID PO 07/18/17 09:00 07/18/17 07:42 Vancomycin HCl 1000 mg/Sodium Chloride 250 ml @ 250 mls/hr ONCE ONCE IV 07/18/17 14:00 07/18/17 14:59 Vital Signs / I&O Vital Signs Date Time Temp Pulse Resp B/P (MAP) Pulse Ox O2 Delivery O2 Flow Rate FiO2 07/18/17 12:00 59 07/18/17 12:00 97.6 59 18 101/55 (70) 97 07/18/17 10:00 59 07/18/17 08:00 61 07/18/17 08:00 98.4 61 124/99 (107) 99 07/18/17 07:56 97 07/18/17 06:00 58 07/18/17 04:00 98.2 60 18 161/76 (104) 97 07/18/17 04:00 60 07/18/17 02:00 91 07/18/17 00:00 98.3 59 18 154/72 (99) 98 07/18/17 00:00 59 07/17/17 22:00 59 07/17/17 20:00 98.1 63 20 136/65 (88) 98 07/17/17 20:00 63 07/17/17 19:40 97 07/17/17 18:00 60 07/17/17 16:00 57 07/17/17 16:00 98.4 56 174/79 (110) 98 07/17/17 14:00 56 I/O 07/17/17 07/17/17 07/17/17 07/18/17 07/18/17 07/18/17 07:00 15:00 23:00 07:00 15:00 23:00 Intake Total 1140 ml 1710 ml 626 ml 708 ml Output Total 400 ml 500 ml 300 ml 225 ml Balance 740 ml 1210 ml 326 ml 483 ml Intake Oral 240 ml 480 ml 240 ml 240 ml IV Total 900 ml 1230 ml 386 ml 468 ml Output Urine Total 400 ml 500 ml 300 ml 225 ml # Bowel Movements 1 Physical Exam BP running high. HR 55 No JVD Lungs: CTA Heart Reg. No murmur, gallops or rubs. Ext: No edema, warm. Neuro: Non focal Laboratory Laboratory Tests Test 07/17/17 14:40 07/17/17 23:11 07/18/17 03:31 07/18/17 07:40 Activated Partial Thromboplast Time 38.8 SEC 62.9 SEC 79.4 SEC Random Vancomycin Level 16.1 COMMENT White Blood Count 6.5 TH/MM3 Red Blood Count 3.86 MIL/MM3 Hemoglobin 11.4 GM/DL Hematocrit 32.3 % Mean Corpuscular Volume 83.8 FL Mean Corpuscular Hemoglobin 29.6 PG Mean Corpuscular Hemoglobin Concent 35.3 % Red Cell Distribution Width 15.0 % Platelet Count 198 TH/MM3 Mean Platelet Volume 8.8 FL Blood Urea Nitrogen 27 MG/DL Creatinine 1.49 MG/DL Random Glucose 94 MG/DL Calcium Level 8.0 MG/DL Sodium Level 143 MEQ/L Potassium Level 3.0 MEQ/L Chloride Level 113 MEQ/L Carbon Dioxide Level 19.9 MEQ/L Anion Gap 10 MEQ/L Estimat Glomerular Filtration Rate 35 ML/MIN Assessment and Plan Problem List: (1) NSTEMI (non-ST elevated myocardial infarction) ICD Codes: I21.4 - Non-ST elevation (NSTEMI) myocardial infarction Status: Acute (2) DKA (diabetic ketoacidoses) ICD Codes: E13.10 - Other specified diabetes mellitus with ketoacidosis without coma Status: Resolved (3) Sepsis ICD Codes: A41.9 - Sepsis, unspecified organism Status: Acute (4) CAD (coronary artery disease) ICD Codes: I25.10 - Atherosclerotic heart disease of [place] coronary artery without angina pectoris Status: Chronic (5) S/P coronary artery stent placement ICD Codes: Z95.5 - Presence of coronary angioplasty implant and graft Status: Acute Assessment and Plan BP high will restart Lisinopril. Follow renal function closely. BS improved insulin drip is now discontinued. CV stable otherwise continue supportive measures. Dr. Colon will see tomorrow. Problem Qualifiers (1) DKA (diabetic ketoacidoses): (2) Sepsis: Spencer Palomino MD Jul 18, 2017 13:33
[2017-07-18] MEDS ORDERED: VANCOMYCIN 1,000 MG/NS 250 ML IV ONE ×2 (14:00)
--- NOTE | 2017-07-18 14:11 | ECHRPT ---
Indication: EF ASSESSMENT OF CHF CONCLUSIONS The left ventricular systolic function is normal with an estimated ejection fraction in the range of 55-60%. Normal left ventricular size. Wall thickness is measured at the upper limits of normal. No regional wall motion abnormalities are present. BP: 160 / 96 HR: 80 Rhythm: Sinus MEASUREMENTS (Male / Female) Normal Values Technical Quality:Good 2D ECHO LV Diastolic Diameter PLAX 4.5 cm 4.2 - 5.9 / 3.9 - 5.3 cm LV Systolic Diameter PLAX 3.3 cm IVS Diastolic Thickness 1.2 cm 0.6 - 1.0 / 0.6 - 0.9 cm LVPW Diastolic Thickness 1.2 cm 0.6 - 1.0 / 0.6 - 0.9 cm LV Relative Wall Thickness 0.5 LA Systolic Diameter LX 3.9 cm 3.0 - 4.0 / 2.7 - 3.8 cm LV Ejection Fraction MOD 4C 57.9 % LV Cardiac Index MOD 4C 1453.4 cm/minm LV Ejection Fraction 4C AL 58.6 % LV Cardiac Index 4C AL 1546.9 cm/minm FINDINGS LEFT VENTRICLE The left ventricular systolic function is normal with an estimated ejection fraction in the range of 55-60%. Normal left ventricular size. Wall thickness is measured at the upper limits of normal. No regional wall motion abnormalities are present. Demetrio Rowell MD (Electronically Signed) Final Date:18 July 2017 14:11
[2017-07-18] MEDS: SODIUM CHLOR 0.9% 1000 ML INJ 1,000 ML IV SCH (20:45)
[2017-07-18] MEDS: HEPARIN SODIUM - SQ 10,000 UNITS/ML VIAL SQ SCH (20:46)
[2017-07-19] VITALS (29 sets, daily range): BP systolic 48–159; BP diastolic 14–73; PULSE 52–64; RESP 16–20; TEMP 96.3–98.3; O2SAT 94–98
[2017-07-19] MEDS: PIPERACIL-TAZO 2.25 GM PREMIX 50 ML IV SCH (02:12)
[2017-07-19] MEDS: CHLORHEXIDINE GLUCONATE 2 % 1 PACK (2 CLOTHS) TOP SCH ×2 (03:05→22:41)
[2017-07-19] MEDS: INSULIN ASPART SUPPLEMENTAL SCALE SQ SCH ×4 (05:51→20:51)
[2017-07-19 07:12] LABS: BICARBONATE 17.1 MEQ/L (21.0-32.0); POTASSIUM 3.6 MEQ/L (3.5-5.1)
[2017-07-19 07:20] LABS: AUTOMATED NEUTROPHIL # 3.1 TH/MM3 (1.8-7.7); BASOPHIL % 0.8 % (0.0-2.0); EOSINOPHIL % 0.6 % (0.0-4.0); HEMATOCRIT 33.8 % (35.0-46.0); HEMO FLAGS DIFF FINAL; LYMPH % 36.5 % (9.0-44.0); MEAN CELL VOLUME 85.8 FL (80.0-100.0); MEAN CORPUSCULAR HEMOGLOBIN 28.3 PG (27.0-34.0); MONO % 6.7 % (0.0-8.0); NEUT % 55.4 % (16.0-70.0); PLATELET COUNT 193 TH/MM3 (150-450); RED BLOOD COUNT 3.94 MIL/MM3 (4.00-5.30); RED CELL DISTRIBUTION WIDTH 15.3 % (11.6-17.2); WHITE BLOOD COUNT 5.5 TH/MM3 (4.0-11.0)
[2017-07-19] MEDS: ATORVASTATIN 80 MG TAB PO SCH (08:31)
[2017-07-19] MEDS: ASPIRIN 81 MG CHEW TAB PO SCH (08:31)
[2017-07-19] MEDS: PRASUGREL 10 MG TAB PO SCH (08:32)
[2017-07-19] MEDS: DOCUSATE SODIUM 50 MG/SENNA 8.6 MG TAB PO SCH ×2 (08:32→20:49)
[2017-07-19] MEDS: ISOSORBIDE MONONITRATE 30 MG TAB PO SCH (08:32)
[2017-07-19] MEDS: METOPROLOL TARTRATE 50 MG TAB PO SCH ×2 (08:33→20:49)
[2017-07-19] MEDS: LISINOPRIL 10 MG TAB PO SCH (08:33)
[2017-07-19] MEDS: FAMOTIDINE 20 MG TAB PO SCH ×2 (08:33→20:49)
[2017-07-19] MEDS: INSULIN DETEMIR 100 UNITS/ML VIAL SQ SCH ×2 (08:33→20:51)
[2017-07-19] MEDS: HEPARIN SODIUM - SQ 10,000 UNITS/ML VIAL SQ SCH ×2 (08:34→20:49)
--- NOTE | 2017-07-19 11:26 | HHI.PR ---
Subjective Remarks Pt not feeling well. Apparently kept herself NPO because she thought she was getting a cardiac cath. Beside glucose was 72. Pt states she feels very nauseous. RN at bedside. Confirms pt has no scheduled cath at this time. Will go ahead and feed patient now as she is a diabetic Objective Vitals Vital Signs Date Time Temp Pulse Resp B/P (MAP) Pulse Ox O2 Delivery O2 Flow Rate FiO2 07/19/17 04:19 98.0 54 20 146/73 (97) 98 07/19/17 04:00 56 07/19/17 03:40 59 07/19/17 02:00 56 07/19/17 01:00 62 07/19/17 00:20 98.0 58 18 152/68 (96) 98 07/19/17 00:00 62 07/18/17 22:50 59 07/18/17 20:00 97.7 63 132/64 (86) 98 07/18/17 20:00 63 07/18/17 19:35 98 21 07/18/17 18:00 65 07/18/17 16:00 63 07/18/17 16:00 98.2 62 18 125/64 (84) 98 07/18/17 14:00 60 07/18/17 12:00 59 07/18/17 12:00 97.6 59 18 101/55 (70) 97 I/O 07/18/17 07/18/17 07/18/17 07/19/17 07/19/17 07/19/17 06:59 14:59 22:59 06:59 14:59 22:59 Intake Total 708 ml 855 ml 250 ml 550 ml Output Total 225 ml 150 ml 350 ml Balance 483 ml 705 ml 250 ml 200 ml Intake Oral 240 ml 480 ml 500 ml IV Total 468 ml 375 ml 250 ml 50 ml Output Urine Total 225 ml 150 ml 350 ml Result Diagram: 07/19/17 0550 07/19/17 0550 Imaging Last Impressions Chest X-Ray 07/16/17 0000 Signed Impressions: Service Date/Time: Sunday, July 16, 2017 10:28 - CONCLUSION: No acute disease. Nura Niño MD Head CT 07/15/17 1354 Signed Impressions: Service Date/Time: June 16:59 - CONCLUSION: 1. No acute intercranial abnormality. Wally Trimble MD Objective Remarks GENERAL: sitting up on recliner w head between her hands EYES: EOMI ENT: No nasal bleeding or discharge. Mucous membranes very dry. NECK: Trachea midline. No JVD. No meningismus CARDIOVASCULAR: Regular rate and rhythm. No murmurs rubs or gallops. RESPIRATORY: No accessory muscle use. Clear to auscultation with no wheezes GASTROINTESTINAL: Abdomen soft, non-tender, nondistended. Bowel sounds present. MUSCULOSKELETAL: Extremities without edema. NEUROLOGICAL: Awake, alert, answers questions appropriately. however does look uncomfortable. A/P Problem List: (1) H/O tobacco use, presenting hazards to health ICD Code: Z87.891 - Personal history of nicotine dependence Status: Chronic (2) NSTEMI, initial episode of care ICD Code: I21.4 - Non-ST elevation (NSTEMI) myocardial infarction Status: Acute (3) COPD (chronic obstructive pulmonary disease) ICD Code: J44.9 - Chronic obstructive pulmonary disease, unspecified Status: Chronic (4) HTN (hypertension) ICD Code: I10 - Essential (primary) hypertension Status: Chronic (5) CONOR (acute kidney injury) ICD Code: N17.9 - Acute kidney failure, unspecified Status: Acute (6) CAD (coronary artery disease) ICD Code: I25.10 - Atherosclerotic heart disease of [place] coronary artery without angina pectoris Status: Chronic (7) DKA (diabetic ketoacidoses) ICD Code: E13.10 - Other specified diabetes mellitus with ketoacidosis without coma Status: Resolved (8) NSTEMI (non-ST elevated myocardial infarction) ICD Code: I21.4 - Non-ST elevation (NSTEMI) myocardial infarction Status: Acute (9) GERD (gastroesophageal reflux disease) ICD Code: K21.9 - Gastro-esophageal reflux disease without esophagitis Status: Chronic (10) Acute encephalopathy ICD Code: G93.40 - Encephalopathy, unspecified Status: Resolved (11) CKD (chronic kidney disease) stage 3, GFR 30-59 ml/min ICD Code: N18.3 - Chronic kidney disease, stage 3 (moderate) Status: Chronic Assessment and Plan NEURO: Acute encephalopathy, suspect toxic metabolic secondary to severe DKA, sepsis, resolved History of sciatica History of migraines No clinical evidence of meningitis. On dual antiplatelet therapy, not candidate for LP at this time and suspicion for meningitis low. Acute encephalopathy most likely secondary to metabolic causes. Now improved with resolution of metabolic abnormalities. CT brain 07/15/17no acute abnormality Ammonia level normal RESP: COPD Former tobacco abuse On room air. Protecting airway. DuoNeb every 6 hours when necessary CV: NSTEMI Coronary artery disease with prior stent Hypertension Hyperlipidemia IV heparin per [place] protocol for 48 hours and then transition to subcutaneous heparin per d/w Dr. Reddy. IV heparin will be discontinued this morning. s/p aspirin 300 mg DC in the ED. Continue aspirin 81 mill grams by mouth daily. Continue Effient 10 mg by mouth daily Continue atorvastatin 80 mg by mouth daily. Continue metoprolol 50 mill grams by mouth twice a day Lisinopril 10 mg daily per cardiology, monitor renal function. on norvasc 10 mg po daily, imdur 30 mg daily. Echo 03/15/17EF 55-60%. Mild MR. Patient previously seen by Dr. Reddy in 2014 - Cardiac catheterization stent to proximal RCA and mid LAD Dr. Reddy had been reconsulted and is following patient, tentatively plan to cath when renal function improved. Awaiting recs from cards today. Cr today 1.48 GI: GERD 1999 ADA diet pepcid FEN/RENAL: Acute kidney injury overlying chronic kidney disease stage III Monitor I/O. Monitor electrolytes (BMP, mag, phos q6 hours) and replace as indicated. Remove Lim. Decrease IVF to 50/hr. ID: Leukocytosis Diarrhea R/o C Diff Received Zosyn and vancomycin in the ED. NSTEMI may have been inciting event for DKA and leukocytosis but sepsis difficult to r/o. No clear source as U/a negative for infection. CXR clear. / blood cultures with bacillus most likely contaminant. repeat Blood cx neg thus far (07/15/17 neg x 4 days).will d/c zosyn r Dog bite wound granulating without evidence of cellulitis. C diff negative. D/c Flagyl HEME: Chronic anemia, iron deficiency Monitor CBC. ENDO: DKA-resolved on levemir 8 units subcutaneous every 12. cover w low dose ISS Hold novolog 5 tid for now, po intake decreased from baseline today pt wanted to keep herself NPO as she thought she was possibly getting a procedure and BS dropped to 72. At this time, will encourage her to eat, cover w ISS and await final recs from cards PROPH: on sq heparin s/p heparin gtt. pepcid po for h/o GERD (no longer requiring stress ulcer prophylaxis) Discharge Planning continue to monitor in [facility] await recs from cards Problem Qualifiers (1) DKA (diabetic ketoacidoses): Veronica Guillory MD Jul 19, 2017 11:26
[2017-07-19] MEDS: SODIUM CHLOR 0.9% 1000 ML INJ 1,000 ML IV SCH (15:00)
--- NOTE | 2017-07-19 15:00 | PD.CARD.PN ---
Subjective Subjective Remarks The patient denies chest pain or SOB. She had an episode of near syncope this morning while sitting up in the chair associated with SBP 75 mmHg. BP recovered. (Lupe Pinedo) Subjective Remarks The exam, history, and the medical decision-making described in the above note were completed with the assistance of the mid-level provider. I reviewed and agree with the findings presented. I attest that I had a [id number] encounter with the patient on the same day, and personally performed and documented my assessment and findings in the medical record. Had NStemi, Dr Reddy will decide about and proceed with cath if he deems necessary (Michael Colon MD) Objective Medications Current Medications Medications (Trade) Dose Ordered Sig/Marie Route Start Time Stop Time Status Last Admin (NS Flush) 2 ml UNSCH PRN IV FLUSH 07/15/17 14:00 (Lopressor) 50 mg BID PO 07/15/17 21:00 07/19/17 08:33 (Effient) 10 mg DAILY PO 07/16/17 09:00 07/19/17 08:32 (Duoneb Neb) 1 ampule Q2HR NEB PRN INH 07/15/17 18:00 Miscellaneous Information 1 Q361D XX 07/15/17 18:00 07/15/17 18:00 (Chlorhexidine 2% Cloth) 3 pack Taper DAILY@04 TOP 07/16/17 04:00 07/12/18 03:59 07/18/17 02:30 (Chlorhexidine 2% Cloth) 3 pack UNSCH PRN TOP 07/15/17 18:00 (Jocelyn-Colace) 1 tab BID PO 07/15/17 21:00 07/18/17 20:46 (Milk Of Magnesia Liq) 30 ml Q12H PRN PO 07/15/17 18:00 (Senokot) 17.2 mg Q12H PRN PO 07/15/17 18:00 (Dulcolax Supp) 10 mg DAILY PRN RECTAL 07/15/17 18:00 (Lactulose Liq) 30 ml DAILY PRN PO 07/15/17 18:00 (Lipitor) 80 mg DAILY PO 07/16/17 10:00 07/19/17 08:31 (Aspirin Chew) 81 mg DAILY PO 07/17/17 09:00 8/21/17 08:31 (Heparin Inj) 2,500 units UNSCH PRN IV 07/16/17 16:00 (Levemir Inj) 8 units Q12HR SQ 07/16/17 12:00 07/18/17 20:47 (NovoLOG SUPPLEMENTAL SCALE) 1 ACHS SLIDING SCALE SQ 07/16/17 11:00 07/18/17 20:48 (D50w (Vial) Inj) 50 ml UNSCH PRN IV 07/16/17 10:30 (Glucagon Inj) 1 mg UNSCH PRN OTHER 07/16/17 10:30 Sodium Chloride 1,000 ml @ 50 mls/hr Q20H IV 07/16/17 10:30 07/18/17 20:45 Pharmacy Profile Note 0 ml @ 0 mls/hr UNSCH OTHER 07/16/17 16:15 (Apresoline Inj) 20 mg Q4H PRN IV PUSH 07/16/17 16:15 07/18/17 07:44 (Prinivil) 10 mg DAILY PO 07/17/17 09:00 07/19/17 08:33 (Norvasc) 10 mg DAILY PO 07/17/17 18:30 07/19/17 08:31 (Imdur) 30 mg DAILY PO 07/18/17 09:00 07/19/17 08:32 (Heparin Inj) 5,000 units Q12HR SQ 07/18/17 21:00 07/19/17 08:34 (Pepcid) 10 mg BID PO 07/18/17 09:00 07/19/17 08:33 Vancomycin HCl 1000 mg/Sodium Chloride 250 ml @ 250 mls/hr Q24H IV 07/19/17 14:00 Miscellaneous Information SPECIFIC LAB TO BE ... ONCE ONCE .XX 07/21/17 13:45 07/21/17 13:46 Vital Signs / I&O Vital Signs Date Time Temp Pulse Resp B/P (MAP) Pulse Ox O2 Delivery O2 Flow Rate FiO2 07/19/17 08:15 60 16 159/40 (79) 97 07/19/17 04:19 98.0 54 20 146/73 (97) 98 07/19/17 04:00 56 07/19/17 03:40 59 07/19/17 02:00 56 07/19/17 01:00 62 07/19/17 00:20 98.0 58 18 152/68 (96) 98 07/19/17 00:00 62 07/18/17 22:50 59 07/18/17 20:00 97.7 63 132/64 (86) 98 07/18/17 20:00 63 07/18/17 19:35 98 21 07/18/17 18:00 65 07/18/17 16:00 63 07/18/17 16:00 98.2 62 18 125/64 (84) 98 I/O 07/18/17 07/18/17 07/18/17 07/19/17 07/19/17 07/19/17 06:59 14:59 22:59 06:59 14:59 22:59 Intake Total 708 ml 855 ml 250 ml 550 ml Output Total 225 ml 150 ml 350 ml Balance 483 ml 705 ml 250 ml 200 ml Intake Oral 240 ml 480 ml 500 ml IV Total 468 ml 375 ml 250 ml 50 ml Output Urine Total 225 ml 150 ml 350 ml Physical Exam GENERAL: Elderly female SKIN: Warm and dry. HEAD: Normocephalic. EYES: No scleral icterus. No injection or drainage. NECK: Supple, trachea midline. No JVD or lymphadenopathy. CARDIOVASCULAR: Regular rate and rhythm without murmurs, gallops, or rubs. RESPIRATORY: Breath sounds equal bilaterally. No accessory muscle use. GASTROINTESTINAL: Abdomen soft, non-tender, nondistended. MUSCULOSKELETAL: right lower extremity scar from dog bite. BACK: Nontender without obvious deformity. No CVA tenderness. Laboratory Laboratory Tests Test 07/19/17 05:50 White Blood Count 5.5 TH/MM3 Red Blood Count 3.94 MIL/MM3 Hemoglobin 11.1 GM/DL Hematocrit 33.8 % Mean Corpuscular Volume 85.8 FL Mean Corpuscular Hemoglobin 28.3 PG Mean Corpuscular Hemoglobin Concent 33.0 % Red Cell Distribution Width 15.3 % Platelet Count 193 TH/MM3 Mean Platelet Volume 8.6 FL Neutrophils (%) (Auto) 55.4 % Lymphocytes (%) (Auto) 36.5 % Monocytes (%) (Auto) 6.7 % Eosinophils (%) (Auto) 0.6 % Basophils (%) (Auto) 0.8 % Neutrophils # (Auto) 3.1 TH/MM3 Lymphocytes # (Auto) 2.0 TH/MM3 Monocytes # (Auto) 0.4 TH/MM3 Eosinophils # (Auto) 0.0 TH/MM3 Basophils # (Auto) 0.0 TH/MM3 CBC Comment DIFF FINAL Differential Comment Blood Urea Nitrogen 26 MG/DL Creatinine 1.48 MG/DL Random Glucose 99 MG/DL Calcium Level 8.3 MG/DL Sodium Level 140 MEQ/L Potassium Level 3.6 MEQ/L Chloride Level 114 MEQ/L Carbon Dioxide Level 17.1 MEQ/L Anion Gap 9 MEQ/L Estimat Glomerular Filtration Rate 35 ML/MIN Random Vancomycin Level 20.6 COMMENT (Lupe Pinedo) Assessment and Plan Problem List: (1) NSTEMI (non-ST elevated myocardial infarction) ICD Codes: I21.4 - Non-ST elevation (NSTEMI) myocardial infarction Status: Acute (2) DKA (diabetic ketoacidoses) ICD Codes: E13.10 - Other specified diabetes mellitus with ketoacidosis without coma Status: Resolved (3) Sepsis ICD Codes: A41.9 - Sepsis, unspecified organism Status: Acute (4) CAD (coronary artery disease) ICD Codes: I25.10 - Atherosclerotic heart disease of [place] coronary artery without angina pectoris Status: Chronic (5) S/P coronary artery stent placement ICD Codes: Z95.5 - Presence of coronary angioplasty implant and graft Status: Acute Assessment and Plan NPO for cardiac cath tomorrow Decrease amlodipine Dr Reddy will follow up tomorrow. Patient seen and evaluated by Dr Colon who completed face to face encounter and participated in evaluation and management. (Lupe Pinedo) Problem Qualifiers (1) DKA (diabetic ketoacidoses): (2) Sepsis: Lupe Pinedo Jul 19, 2017 15:00 Michael Colon MD Jul 19, 2017 19:02
[2017-07-19] MEDS: VANCOMYCIN 1,000 MG/NS 250 ML IV SCH ×2 (17:21)
[2017-07-20] VITALS (21 sets, daily range): BP systolic 103–155; BP diastolic 54–79; PULSE 48–62; RESP 16–20; TEMP 97.2–97.9; O2SAT 96–98
[2017-07-20] MEDS: INSULIN ASPART SUPPLEMENTAL SCALE SQ SCH ×4 (05:45→21:00)
[2017-07-20] MEDS: HEPARIN SODIUM - SQ 10,000 UNITS/ML VIAL SQ SCH ×2 (08:43→21:44)
[2017-07-20] MEDS: FAMOTIDINE 20 MG TAB PO SCH ×2 (08:44→21:45)
[2017-07-20] MEDS: LISINOPRIL 10 MG TAB PO SCH (08:44)
[2017-07-20] MEDS: ASPIRIN 81 MG CHEW TAB PO SCH ×2 (08:44→16:33)
[2017-07-20] MEDS: DOCUSATE SODIUM 50 MG/SENNA 8.6 MG TAB PO SCH ×2 (08:45→21:00)
[2017-07-20] MEDS: ISOSORBIDE MONONITRATE 30 MG TAB PO SCH (08:45)
[2017-07-20] MEDS: ATORVASTATIN 80 MG TAB PO SCH (08:45)
[2017-07-20] MEDS: PRASUGREL 10 MG TAB PO SCH (08:45)
[2017-07-20] MEDS: METOPROLOL TARTRATE 50 MG TAB PO SCH ×2 (08:45→21:45)
[2017-07-20] MEDS: INSULIN DETEMIR 100 UNITS/ML VIAL SQ SCH ×2 (08:49→21:00)
--- NOTE | 2017-07-20 10:01 | HHI.PR ---
Subjective Remarks Pt states that she is feeling a lot better. no nausea or vomiting. RN tells me that her BS is 89. scheduled for cardiac cath at ~12:30 today Pt denies any CP/SOB Objective Vitals Vital Signs Date Time Temp Pulse Resp B/P (MAP) Pulse Ox O2 Delivery O2 Flow Rate FiO2 07/20/17 06:00 57 07/20/17 05:00 57 07/20/17 04:00 53 07/20/17 03:44 97.8 55 17 155/79 (104) 97 07/20/17 03:00 53 07/20/17 02:00 62 07/20/17 01:00 54 07/20/17 00:00 55 07/20/17 00:00 97.6 56 20 144/70 (94) 98 07/19/17 23:00 56 07/19/17 22:00 55 07/19/17 21:00 62 07/19/17 20:00 62 07/19/17 20:00 98.3 62 20 138/67 (90) 98 07/19/17 19:00 62 07/19/17 18:00 56 07/19/17 17:00 56 07/19/17 16:00 56 07/19/17 15:50 141/63 (89) 07/19/17 15:45 132/63 (86) 07/19/17 15:40 48/14 (25) 07/19/17 15:30 97.4 63 16 72/36 (48) 98 07/19/17 15:00 64 07/19/17 14:00 60 07/19/17 13:00 58 07/19/17 12:00 96.3 58 16 122/70 (87) 94 07/19/17 12:00 52 07/19/17 11:00 58 07/19/17 10:00 60 I/O 07/19/17 07/19/17 07/19/17 07/20/17 07/20/17 07/20/17 07:00 15:00 23:00 07:00 15:00 23:00 Intake Total 550 ml 360 ml 1114 ml Output Total 350 ml 300 ml 400 ml Balance 200 ml 60 ml 714 ml Intake Oral 500 ml 360 ml 240 ml IV Total 50 ml 874 ml Output Urine Total 350 ml 300 ml 400 ml # Voids 1 # Bowel Movements 2 0 Result Diagram: 07/19/17 0550 07/19/17 0550 Imaging Last Impressions Chest X-Ray 07/16/17 0000 Signed Impressions: Service Date/Time: Sunday, July 16, 2017 10:28 - CONCLUSION: No acute disease. Nura Niño MD Head CT 07/15/17 1354 Signed Impressions: Service Date/Time: June 16:59 - CONCLUSION: 1. No acute intercranial abnormality. Wally Trimble MD Objective Remarks GENERAL: laying in bed EYES: EOMI ENT: No nasal bleeding or discharge. Mucous membranes very dry. NECK: Trachea midline. No JVD. No meningismus CARDIOVASCULAR: Regular rate and rhythm. No murmurs rubs or gallops. RESPIRATORY: No accessory muscle use. Clear to auscultation with no wheezes GASTROINTESTINAL: Abdomen soft, non-tender, nondistended. Bowel sounds present. MUSCULOSKELETAL: Extremities without edema. NEUROLOGICAL: Awake, alert, answers questions appropriately. smiling A/P Problem List: (1) H/O tobacco use, presenting hazards to health ICD Code: Z87.891 - Personal history of nicotine dependence Status: Chronic (2) NSTEMI, initial episode of care ICD Code: I21.4 - Non-ST elevation (NSTEMI) myocardial infarction Status: Acute (3) COPD (chronic obstructive pulmonary disease) ICD Code: J44.9 - Chronic obstructive pulmonary disease, unspecified Status: Chronic (4) HTN (hypertension) ICD Code: I10 - Essential (primary) hypertension Status: Chronic (5) CONOR (acute kidney injury) ICD Code: N17.9 - Acute kidney failure, unspecified Status: Acute (6) CAD (coronary artery disease) ICD Code: I25.10 - Atherosclerotic heart disease of [place] coronary artery without angina pectoris Status: Chronic (7) DKA (diabetic ketoacidoses) ICD Code: E13.10 - Other specified diabetes mellitus with ketoacidosis without coma Status: Resolved (8) NSTEMI (non-ST elevated myocardial infarction) ICD Code: I21.4 - Non-ST elevation (NSTEMI) myocardial infarction Status: Acute (9) GERD (gastroesophageal reflux disease) ICD Code: K21.9 - Gastro-esophageal reflux disease without esophagitis Status: Chronic (10) Acute encephalopathy ICD Code: G93.40 - Encephalopathy, unspecified Status: Resolved (11) CKD (chronic kidney disease) stage 3, GFR 30-59 ml/min ICD Code: N18.3 - Chronic kidney disease, stage 3 (moderate) Status: Chronic Assessment and Plan NEURO: Acute encephalopathy, suspect toxic metabolic secondary to severe DKA, sepsis, resolved History of sciatica History of migraines No clinical evidence of meningitis. On dual antiplatelet therapy, LP was not performed as suspicion for meningitis was low. Acute encephalopathy most likely secondary to metabolic causes. resolved CT brain 07/15/17no acute abnormality Ammonia level normal RESP: COPD Former tobacco abuse On room air. Protecting airway. DuoNeb every 6 hours when necessary CV: NSTEMI Coronary artery disease with prior stent Hypertension Hyperlipidemia IV heparin per [place] protocol for 48 hours and then transitioned to subcutaneous heparin per Dr. Reddy request. s/p aspirin 300 mg CO in the ED. Continue aspirin 81 mill grams by mouth daily. Continue Effient 10 mg by mouth daily Continue atorvastatin 80 mg by mouth daily. Continue metoprolol 50 mill grams by mouth twice a day Lisinopril 10 mg daily per cardiology, monitor renal function. on norvasc 10 mg po daily, imdur 30 mg daily. Echo 03/15/17EF 55-60%. Mild MR. Patient previously seen by Dr. Reddy in 2015 - Cardiac catheterization stent to proximal RCA and mid LAD Dr. Reddy following and plan is for cardiac cath later today. Monitor creatinine closely. GI: GERD 1999 ADA diet pepcid FEN/RENAL: Acute kidney injury overlying chronic kidney disease stage III Monitor I/O. Monitor electrolytes (BMP, mag, phos q6 hours) and replace as indicated. Remove Lim. IVF to 60/hr. ID: Leukocytosis Diarrhea R/o C Diff Received Zosyn and vancomycin in the ED. NSTEMI may have been inciting event for DKA and leukocytosis but sepsis difficult to r/o. No clear source as U/a negative for infection. CXR clear. 1/ blood cultures with bacillus most likely contaminant. repeat Blood cx neg thus far (07/15/17 neg x 4 days).will d/c zosyn Dog bite wound granulating without evidence of cellulitis. C diff negative. D/c Flagyl HEME: Chronic anemia, iron deficiency Monitor CBC. ENDO: DKA-resolved on levemir 8 units subcutaneous every 12. cover w low dose ISS Hold novolog 5 tid for now, po intake decreased from baseline BS this morning 89. Currently NPO. Monitor sugars closely while NPO. dose of levemir was held this morning. PROPH: on sq heparin. pepcid po for h/o GERD (no longer requiring stress ulcer prophylaxis) Discharge Planning continue to monitor in [facility] scheduled for cardiac cath today Problem Qualifiers (1) DKA (diabetic ketoacidoses): Veronica Guillory MD Jul 20, 2017 10:01
[2017-07-20] MEDS ORDERED: HEPARIN-NS/PF INJ 1,000 ML ONE (13:05)
[2017-07-20] MEDS ORDERED: MIDAZOLAM HCL 2 MG/2 ML VIAL ONE ×2 (13:06→13:53)
[2017-07-20 13:25] LABS: BICARBONATE 21.2 MEQ/L (21.0-32.0); POTASSIUM 3.8 MEQ/L (3.5-5.1)
[2017-07-20] MEDS ORDERED: HEPARIN SODIUM - IV 10,000 UNITS/10 ML VIAL ONE (13:29)
[2017-07-20] MEDS ORDERED: SODIUM CHLOR 0.9% 1000 ML INJ 1,000 ML IV SCH (14:20)
--- NOTE | 2017-07-20 14:20 | CATHPROC ---
[facility] HIS Report Study Information Study Number Admission Scheduled Start Study Start [id number] Jul 15 2017 5:56PM 07/20/2017 Jul 20 2017 12:28PM [place] [facility] Cardiac Catheterization Admit Source Facility Department Other [facility] - Fluid Jet Cutter Operator Physician and Clinical Staff Initial Dunia Polanco Lease Purchase Driver Jeronimo Cristina,HARSH Other Bettye Mendoza,RN Recorder Grzegorz Honeycutt RCIS(BS) Scrub Bettye Masterson,RT(R) Procedures Performed Procedure Location (Site) Vessel Name Angiogram LV LV Ventricle Coronary Angiograms LCA Left Coronary Coronary Angiograms RCA Right Coronary Drug Eluting Inflatio DIAG Prox Left Coronary PTCA DIAG Prox Left Coronary Wire insertion Fem Art (right) Femoral Art Equipment Time Grain Elevator Superintendent Description Size Mfg Part Number Used/Scraped WIRE, BALANCE MIDDLEWEIGHT [id number] 13:39 [employer] 190CM Used 190CM *[id number] TRANSDUCER, TRBlue Ridge NetworksAVE [id number] 13:01 CALLEJAS CASTRO * Used W/STOCKCOCK *[id number] 13:49 [employer] BALLOON, 2.0 8MM EMERGE MR 2.0 8MM Used *[id number] BALLOON, 2.75 8[place] [id number] 13:56 [employer] 2.75 8MM Used QUANTUM APEX MR *[id number] 534-548T *[id number] 534-520T *[id number] 534-552S *[id number] [phone] *[id number] [phone] *[id number] 14:00 DAIG/ST. [employer] ANGIOSEAL, FR6 VIP FR 6 Used *[id number] 13:01 [employer] INDUSTRIES PACK, CCL CUSTOM * Used *[id number] 13:01 [employer] PACER PEN, SKIN DUAL W/ RULER * Used *[id number] STENT, 2.5 12 RESOLUTE [id number] 13:51 MEDTRONIC 2.5 12 Used INTEGRITY RX *[id number] 13:49 Scrybe 30 SISI INDEFLATOR Used *[id number] 13:27 Scrybe SHEATH, FR6.5 PRELUDE 11CM FR 6.5 038ACT Used *[id number] 13:01 [employer]be WIRE, 3MMJ .035 180CM 180CM Used *[id number] PROBE COVER, STERILE [id number] 13:01 [employer] MEDICAL * Used ULTRASOUND W/ GEL *[id number] 13:01 NAMIC MANIFOLD, 4 PORT * Used *[id number] 13:01 NAMIC TUBING, HIGH PRESSURE 48" 48" Used *[id number] 13:01 NYCOMED OMNIPAQUE, 350 MG, 150ML 150ML [id number] Used [id number] 13:01 [employer] BL[employer]ET,WARM AIR CCL * Used *[id number] 13:01 TERUM[employer] SHEATH, FR5 TERUMO (10CM) FR 5 Used *[id number] Equipment Model, Serial, Lot Number and Expiration Data Description Model Number Serial Number Lot Number Expiration Date SHEATH, FR6.5 PRELUDE 11CM [id number] 05-28-2020 STENT, 2.5 12 RESOLUTE [id number] 08-25-2018 INTEGRITY RX History: Allergies Allergy Reaction *MDRO Multi-Drug Resistant Organism Darvon RASH propoxyphene RASH History: Risk Factors Family History of Hypertension Dyslipidemia Previous [place] Previous Heart Failure Premature CAD No No Yes Yes No Prior Valve Prior PCI Prior PCIDate Prior CABG Surgery No Yes 09/16/2015 No Cerebrovascular Peripheral Artery Chronic Lung On Dialysis Diabetes Disease Disease Disease No No No Yes No History: Stress Tests Stress or Imaging Studies Performed No History: Other Current Smoker Method Quit Packs a Day Years Used Pack Years No Cigarettes 15 Years Ago 1 35 35 Labs Hgb (g/dl) Hct (%) WBC (l/cumm) Platelets (thousands) 11.60-17.00 35.00-51.00 4.00-11.00 150.00-450.00 11.1 33.8 5.5 193 Glucose (mg/dl) BUN (mg/dl) Creatinine (mg/dl) BUN:Creatinine (1:x) 74.00-106.00 7.00-18.00 0.50-1.30 10.00-20.00 99 26 1.4 18.6 Na (meq/l) K (meq/l) 136.00-145.00 3.50-5.10 140 3.6 INR (PTT:PT) 0.90-1.10 0.9 CPK-MB (ng/ML) 0.50-3.60 Not Drawn Medication Medication Total Dose (Bolus/Oral) Medication Total Dosage/Unit 1% XYLOCAINE 20 mL FENTANYL 100 mcg HEPARIN 5000 units NTG (IC) 200 mcg VERSED 4 mg Medications (Bolus/Oral) Medication Time Given Dosage/Unit Administered By Reason VERSED 07/20/2017 1:15:50 PM 2 mg Jeronimo Cristina 2 mg VERSED given in lab by Jeronimo Cristina RN in Left Antecubital via Peripheral IV. Ordered by Dunia Balderas. FENTANYL 07/20/2017 1:16:37 PM 50 mcg Jeronimo Cristina 50 mcg FENTANYL given in lab by Jeronimo Cristina RN in Left Antecubital via Peripheral IV. Ordered by Dunia Reddy. 1% XYLOCAINE 07/20/2017 1:18:52 PM 20 mL Dunia Reddy Patient arrived on 20 mL 1% XYLOCAINE given by Dunia Reddy in Right Groin via Subcutaneous. Order ed by Dunia Reddy. HEPARIN 07/20/2017 1:38:53 PM 5000 units Jeronimo Cristina Patient arrived on 5000 units HEPARIN given by Jeronimo Cristina RN in Left Antecubital via Peripheral IV. Ordered by Dunia Reddy. NTG (IC) 07/20/2017 1:47:16 PM 200 mcg Dunia Reddy 200 mcg NTG (IC) given in lab by Dunia Reddy via Intra-coronary. Ordered by Dunia Reddy. VERSED 07/20/2017 1:56:22 PM 2 mg Hesher, Bettye 2 mg VERSED given in lab by Bettye Mendoza RN in Left Antecubital via Peripheral IV. Ordered by Dunia Balderas. FENTANYL 07/20/2017 1:57:00 PM 50 mcg Hesher, Bettye 50 mcg FENTANYL given in lab by Bettye Mendoza RN in Left Antecubital via Peripheral IV. Ordered by Dunia Reddy. Medication (Drip) Medication Time Given Dosage/Unit Concentration/Unit Diluent (ml) Solution IV Solutions 07/20/2017 12:48:57 PM 0 mL (IV) 500 NaCl .9 Patient arrived on IV Solutions in Left Antecubital via Peripheral IV. Pump/Drip Flow = 20 ml/hr usin g NaCl .9. Initial Case Assessment Cardiovascular HR Rhythm NIBP Chest Pain 56 SR 166/72 0 Edema Present Skin color Skin None Normal Warm Dry Circulatory - Right Pulses Dorsalis Pedis Femoral 1 1 Scale (0,1,2,3,4,d) Circulatory - Left Pulses Dorsalis Pedis Femoral 1 1 Scale (0,1,2,3,4,d) Circulatory - Lower Extremities Color Lower Right Color Lower Left Normal Normal Neurological State Oriented to time-place- Alert Moves all extremities person Respiration - General Respiration Rate SpO2 (%) (B/min) 14 100 Final Case Assessment Cardiovascular HR Rhythm NIBP Chest Pain 50 sr 134/63 0 Edema Present Skin color Skin None Normal Warm Dry Circulatory - Right Pulses Dorsalis Pedis Femoral 2 2 Scale (0,1,2,3,4,d) Circulatory - Left Pulses Dorsalis Pedis Femoral 2 2 Scale (0,1,2,3,4,d) Neurological State Oriented to time-place- Alert Moves all extremities person Respiration - General Respiration Rate SpO2 (%) O2 (lpm) (B/min) 18 100 0 Chronological Log Time Study Chronological Log 12:48:25 Patient arrived via Bed. 12:48:26 Patient Name, D.O.B, / Armband Verified By R.N. 12:48:27 Consent signed by the physician and the patient and verified by the Fluid Jet Cutter Operator staff. 12:48:28 Pre-op and post- op instructions given; patient acknowledges understanding of instructions. 12:48:29 Verbal Stimulation=2 Physical Stimulation=2 Airway=2 Respiration=2 TOTAL=8. (0=absent, 1=li mited, 2=present) 12:48:50 Patient has been NPO for Less than 6Hrs. 12:48:51 Skin Breakdown- 12:48:51 Patient Warmer Placed on the Table. 12:48:57 A # 20 IV was noted in the Antecubital (left). Grade = 0 12:48:57 Patient arrived on IV Solutions in Left Antecubital via Peripheral IV. Pump/Drip Flow = 20 ml/hr using NaCl .9. 12:48:58 History and physical on the chart or being dictated. Assessment: Initial Case, HR=56 BPM, Rhythm=SR, BTTZ=454/72 mmhg, Chest Pain=0, Edema=None, Col or=Normal, Skin = Warm, Dry Right Pulses: Salvador Ped=1, Femoral=1 Left Pulses: Salvador Ped=1, Femoral=1 12:48:59 Lower Right Extremities: Color=Normal Lower Left Extremities: Color=Normal Neurological: State=Alert, Ox3, [place] Respiration: Resp=14 B/min, UnT9=945 % Vitals capture started with the following parameters, Patient=Adult, Interval=5 min, Initial Pr nvrcpj=960 mmHg, 12:52:24 Deflation Rate=5 mmHg, Cuff placed on Left Leg 12:53:29 HR=57 bpm, VKPZ=884/76 mmhg, SpO2=99.0 %, Resp=0 B/min, Pain=0, Norris=10, Mcdermott=2 12:58:09 HR=57 bpm, DCFW=640/72 mmhg, SpO2=99.0 %, Resp=10 B/min, Pain=0, Norris=10, Mcdermott=2 13:03:08 HR=56 bpm, FLIR=871/76 mmhg, SpO2=99.0 %, Resp=16 B/min, Pain=0, Norris=10, Mcdermott=2 13:03:56 Bilateral groins prepped with 2% chlorhexidine, and with a 3 min. waiting time. 13:05:00 MD arrived. 13:08:48 HR=68 bpm, UNBB=086/80 mmhg, CrL0=268.0 %, Resp=19 B/min, Pain=0, Norris=10, Mcdermott=2 13:13:49 HR=54 bpm, PCDH=173/76 mmhg, YlS0=346.0 %, Resp=18 B/min, Mcdermott=2 13:15:50 2 mg VERSED given in lab by Jeronimo Cristina RN in Left Antecubital via Peripheral IV. Order ed by Dunia Reddy. 13:16:37 50 mcg FENTANYL given in lab by Jeronimo Cristina RN in Left Antecubital via Peripheral IV. O rdered by Dunia Reddy. Time Out. Correct patient, correct procedure,correct physician, ,power injector not loaded with contrast with surgical 13:17:40 team present. Time Out Concurred by MD, individual staff and GYNECOLOGY TEACHER in procedure. Not loaded at t his time. 13:18:13 QM=663 bpm, FSAL=773/69 mmhg, MgY3=589.0 %, Resp=8 B/min, Mcdermott=2 13:18:42 Presedation re-assessment performed by Fluid Jet Cutter Operator RN. 13:18:43 Case Start 13:18:45 Verbal Stimulation=2 Physical Stimulation=2 Airway=2 Respiration=2 TOTAL=8. (0=absent, 1=li mited, 2=present) Patient arrived on 20 mL 1% XYLOCAINE given by Dunia Reddy in Right Groin via Subcutaneous. Ordered by 13:18:52 Dunia Reddy. 13:18:59 Access site was Right Femoral Artery. 13:19:04 A SHEATH, FR5 TERUMO (10CM) FR 5 was advanced into the Fem Art (right) using the Percutaneo us technique. 13::46 Pressure channel 1 zeroed. 13:19:54 Reference ECG taken A PIGTAIL ANG. INFINITI CATHETER FR 5 was advanced over a wire. OMNIPAQUE, 350 MG, 150ML 150ML was used 13:21:06 for injections. Recorded Pressure: LV, HR=70, Condition=Condition 1 13:22:24 (Left Ventricle) LV 105/1/4 13:22:34 The LV was injected at 10 cc/sec for a total of 30. OMNIPAQUE, 350 MG, 150ML 150ML used. 13:23:08 HR=50 bpm, UXJN=624/55 mmhg, LsI8=136.0 %, Resp=0 B/min, Mcdermott=2 Recorded Pressure: LV, Ao, HR=51, Condition=Condition 1 13:24:19 (Left Ventricle) LV 99/4/5, (Aorta) Ao 102/44/65 A JL 4.0 INFINITI CATHETER FR 5 was advanced over a wire. OMNIPAQUE, 350 MG, 150ML 150ML was us ed for 13:25:07 injections. Recorded Pressure: Ao, HR=51, Condition=Condition 1 13:25:52 (Aorta) Ao 111/51/72 13:26:18 The LCA was injected and visualized at various angles. OMNIPAQUE, 350 MG, 150ML 150ML used . 13:28:08 Catheter was removed A AR MOD INFINITI CATHETER FR 5 was advanced over a wire. OMNIPAQUE, 350 MG, 150ML 150ML was us ed for 13:28:11 injections. 13:28:38 HR=51 bpm, KCSE=456/57 mmhg, MoV0=456.0 %, Resp=0 B/min, Mcdermott=2 13:29:05 The RCA was injected and visualized at various angles. OMNIPAQUE, 350 MG, 150ML 150ML used . 13:30:18 Catheter was removed 13:33:04 HR=53 bpm, EYVB=743/58 mmhg, FeS7=464.0 %, Resp=18 B/min, Mcdermott=2 13:38:03 HR=52 bpm, WNFI=590/61 mmhg, NaL4=726.0 %, Resp=14 B/min, Mcdermott=2 A SHEATH, FR6.5 PRELUDE 11CM FR 6.5 was exchanged in the Fem Art (right). This was necessary in order to 13:38:49 accomodate a larger catheter. Patient arrived on 5000 units HEPARIN given by Jeronimo Cristina RN in Left Antecubital via Perip heral IV. Ordered by 13:38:53 Dunia Reddy. A XBLAD 3.0 GUIDE CATHETER FR 6 was advanced over a wire. OMNIPAQUE, 350 MG, 150ML 150ML was us ed for 13:40:22 injections. 13:40:49 A WIRE, BALANCE MIDDLEWEIGHT 190CM 190CM was inserted via Fem Art (right). 13:40:57 Wire removed 13:41:55 Catheter was removed A XB LAD 4.0 GUIDE CATHETER FR 6 was advanced over a wire. OMNIPAQUE, 350 MG, 150ML 150ML was u sed for 13:41:57 injections. 13:42:22 A WIRE, BALANCE MIDDLEWEIGHT 190CM 190CM was inserted via Fem Art (right). 13:42:58 Activated Clotting Time Drawn 13:43:02 HR=52 bpm, HRBE=961/61 mmhg, LfS4=427.0 %, Resp=4 B/min, Mcdermott=2 13:44:58 Interventional wire has crossed the lesion 13:47:16 200 mcg NTG (IC) given in lab by Dunia Reddy via Intra-coronary. Ordered by Luis Angel Reddy. A BALLOON, 2.0 8MM EMERGE MR 2.0 8MM was inserted over WIRE, BALANCE MIDDLEWEIGHT 190CM 190CM v ia the 13:47:59 DIAG Prox. 13:48:06 HR=52 bpm, NIBP=96/48 mmhg, IlZ8=901.0 %, Resp=18 B/min, Mcdermott=2 A BALLOON, 2.0 8MM EMERGE MR 2.0 8MM over a WIRE, BALANCE MIDDLEWEIGHT 190CM 190CM in the DIAG Prox 13:48:40 was inflated using a 30 SISI INDEFLATOR at 6 sisi for 10 sec. 13:48:57 ACT (Normal Range 90-180) = 316 A BALLOON, 2.0 8MM EMERGE MR 2.0 8MM over a WIRE, BALANCE MIDDLEWEIGHT 190CM 190CM in the DIAG Prox 13:49:39 was inflated using a 30 SISI INDEFLATOR at 6 sisi for 10 sec. 13:49:44 Balloon Removed. A STENT, 2.5 12 RESOLUTE INTEGRITY RX 2.5 12 was advanced through a XB LAD 4.0 GUIDE CATHETER F R 6 over a 13:51:18 WIRE, BALANCE MIDDLEWEIGHT 190CM 190CM. A STENT, 2.5 12 RESOLUTE INTEGRITY RX 2.5 12 was deployed using a 30 SISI INDEFLATOR at 16 atmos pheres for 13:52:29 39 seconds in the DIAG Prox. 13:53:30 Delivery device removed 13:53:37 HR=53 bpm, NZOF=051/57 mmhg, CqD7=739.0 %, Resp=10 B/min, Mcdermott=2 A BALLOON, 2.75 8MM NC QUANTUM APEX MR 2.75 8MM was inserted over WIRE, BALANCE MIDDLEWEIGHT 19 0CM 13:56:19 190CM via the DIAG Prox. 13:56:22 2 mg VERSED given in lab by Bettye Mendoza RN in Left Antecubital via Peripheral IV. Order ed by Dunia Reddy. A BALLOON, 2.75 8MM NC QUANTUM APEX MR 2.75 8MM over a WIRE, BALANCE MIDDLEWEIGHT 190CM 190CM i n the 13:56:28 DIAG Prox was inflated using a 30 SISI INDEFLATOR at 16 sisi for 30 sec. 13:56:43 Balloon Removed. 13:57:00 50 mcg FENTANYL given in lab by Bettye Mendoza, HARSH in Left Antecubital via Peripheral IV. O rdered by Dunia Reddy. 13:57:27 Wire removed 13:57:29 Catheter was removed 13:57:42 Case End 13:57:54 An injection in the Fem Art (right) was made through the SHEATH, FR6.5 PRELUDE 11CM FR 6.5. 13:58:40 HR=52 bpm, UXBS=481/63 mmhg, FrU9=985.0 %, Resp=18 B/min, Mcdermott=2 14:00:03 ANGIOSEAL, FR6 VIP FR 6 placement in the Fem Art (right) Assessment: Final Case, HR=50 BPM, Rhythm=sr, WNCI=512/63 mmhg, Chest Pain=0, Edema=None, Color =Normal, Skin = Warm, Dry Right Pulses: Salvador Ped=2, Femoral=2 14:00:35 Left Pulses: Salvador Ped=2, Femoral=2 Neurological: State=Alert, Ox3, [place] Respiration: Resp=18 B/min, JjV0=821 %, O2=0 lpm 14:01:17 Catheter(s) removed without difficulty 14:01:19 Sterile dressing applied to site 14:01:22 Cine recording checked. 14:01:24 Bedside Report will be given. 14:01:28 Implantable Device card placed in patient's chart. 14:01:30 Contrast Scanned 14:03:11 HR=49 bpm, UINB=994/55 mmhg, AsF5=877.0 %, Resp=0 B/min, Mcdermott=2 14:05:[address] [facility] End Study - Contrast Media Used In Study Contrast Total Opened (mL) Total Used (mL) Total Wasted (mL) Omnipaque 150 150 0 End Study - Maximum Contrast Load Max Contrast Load (mL) 257.1 End Study - Radiation Exposure Fluoro Time (minutes) 6.6 End Study - Patient Disposition Complications Transferred To Interventional Outcome No Telemetry Bed successful
[2017-07-20] MEDS ORDERED: PRASUGREL 10 MG TAB PO SCH (14:30)
--- NOTE | 2017-07-20 15:06 | MA ---
cc: REX ESCOBAR DATE: 07/20/2017 INDICATIONS Xnd-UI-zzorydsmf myocardial function, class IV angina, coronary disease, history of coronary stenting. PROCEDURE PERFORMED 1. Retrograde left heart catheterization with left ventriculography and selective coronary angiography. 2. Angioplasty and stenting of the first diagonal artery. 3. Moderate sedation. ACCESS SITE: Right coronary artery. EQUIPMENT USED: 5 Danish pigtail catheter, 5 Danish JL-4 and AR modified coronary catheters. XB LAD 4.0 guide, BMW wire, 2.0 balloon for pre dilatation, 2.5 x 12 mm Resolute stent at 16 atmospheres, postdilated with 2.75 noncompliant balloon at 16 atmospheres. MEDICATIONS 1. Versed IV. 2. Fentanyl IV 3. Heparin IV. 4. Nitroglycerin IC. CONTRAST Omnipaque contrast 150 cc. COMPLICATIONS None. HEMOSTASIS Angio-Seal closure BLOOD LOSS Less than 10 cc COMPLICATIONS None RESULTS 1. HEMODYNAMICS: Heart rate 50 beats per minute. LV end-diastolic pressure 5 mmHg, LV 110/5, Aorta 110/55/80 2. LEFT VENTRICULOGRAPHY: Left ventricular ejection fraction 55%, wall motion normal. No mitral regurgitation. 3. CORONARY: Left main coronary artery patent, left anterior descending artery has 30% stenosis in the mid portion, distally to the stent, stent in the mid portion is patent. First diagonal artery has 99% in-stent restenosis in the proximal - mid portion with EVY 2 flow, lesion length 9 mm, pre EVY flow 2, post EVY flow 3, post stenosis zero. Left circumflex artery patent. OM1 has 70, 80 and 80% sequential stenosis in the proximal portion. This is unchanged from the previous study. Right coronary is a dominant vessel which is patent, PDA has 30% proximal stenosis. PLV is a branching vessel which is patent. Post intervention angiography showed excellent patency of the stented segment and no evidence of dissection, thrombosis or distal embolization. DIAGNOSIS: 1. Iyv-TQ-luppsbaln myocardial infarction. 2. Coronary disease with severe in-stent restenosis of the first diagonal artery and patent stent in the left anterior descending artery. 3. Overall preserved left ventricular systolic function. 4. Successful angioplasty and stenting of the first diagonal artery. DISPOSITION Ms. Maynard will be monitored on telemetry after the procedure. We will continue therapy with platelet inhibitors. We will continue aggressive modification of the cardiac risk factors. I will see her back for followup in our office after discharge. MD Jason Angel /2:14 PM /2:43 PM STEVAN
[2017-07-20] MEDS ORDERED: IOHEXOL 350 MG/ML 50 ML BTL (for Cath Lab) OTHER ONE (16:19)
[2017-07-20] MEDS ORDERED: IOHEXOL 350 MG/ML 100 ML BTL (for Cath Lab) OTHER ONE (16:19)
[2017-07-20] MEDS: VANCOMYCIN 1,000 MG/NS 250 ML IV SCH ×2 (16:30)
[2017-07-21] VITALS (27 sets, daily range): BP systolic 84–156; BP diastolic 31–69; PULSE 50–64; RESP 18–20; TEMP 97.4–98; O2SAT 95–98
[2017-07-21] MEDS: SODIUM CHLOR 0.9% 1000 ML INJ 1,000 ML IV SCH (00:18)
[2017-07-21] MEDS: CHLORHEXIDINE GLUCONATE 2 % 1 PACK (2 CLOTHS) TOP SCH ×2 (02:38→22:01)
[2017-07-21] MEDS: INSULIN ASPART SUPPLEMENTAL SCALE SQ SCH ×4 (06:00→21:00)
[2017-07-21 07:06] LABS: BICARBONATE 16.5 MEQ/L (21.0-32.0); HDL CHOLESTEROL 38.3 MG/DL (40.0-60.0); POTASSIUM 3.9 MEQ/L (3.5-5.1)
--- NOTE | 2017-07-21 08:40 | HHI.DS ---
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 Discharge Summary Admission Date Jul 15, 2017 at 17:56 Discharge Date: Jul 21, 2017 Admitting Diagnosis sepsis w/multiorgan failure, metabolic encephalopathy, elevated T (1) H/O tobacco use, presenting hazards to health ICD Code: Z87.891 - Personal history of nicotine dependence Diagnosis: Secondary Status: Chronic (2) NSTEMI, initial episode of care ICD Code: I21.4 - Non-ST elevation (NSTEMI) myocardial infarction Diagnosis: Principal Status: Acute (3) COPD (chronic obstructive pulmonary disease) ICD Code: J44.9 - Chronic obstructive pulmonary disease, unspecified Diagnosis: Secondary Status: Chronic (4) HTN (hypertension) ICD Code: I10 - Essential (primary) hypertension Diagnosis: Secondary Status: Chronic (5) CONOR (acute kidney injury) ICD Code: N17.9 - Acute kidney failure, unspecified Diagnosis: Secondary Status: Acute (6) CAD (coronary artery disease) ICD Code: I25.10 - Atherosclerotic heart disease of [place] coronary artery without angina pectoris Diagnosis: Secondary Status: Chronic (7) DKA (diabetic ketoacidoses) ICD Code: E13.10 - Other specified diabetes mellitus with ketoacidosis without coma Diagnosis: Principal Status: Resolved (8) NSTEMI (non-ST elevated myocardial infarction) ICD Code: I21.4 - Non-ST elevation (NSTEMI) myocardial infarction Diagnosis: Principal Status: Acute (9) GERD (gastroesophageal reflux disease) ICD Code: K21.9 - Gastro-esophageal reflux disease without esophagitis Diagnosis: Secondary Status: Chronic (10) Acute encephalopathy ICD Code: G93.40 - Encephalopathy, unspecified Diagnosis: Secondary Status: Resolved (11) CKD (chronic kidney disease) stage 3, GFR 30-59 ml/min ICD Code: N18.3 - Chronic kidney disease, stage 3 (moderate) Diagnosis: Secondary Status: Chronic Procedures PCI 07/20/17 Brief History - From Admission History from patient is very limited due to her mental status. I attempted to contact her at the phone numbers provided but there was no answer. He had already left the emergency department (ED RN states he was there briefly). History obtained from discussion with the ED physician and review of EMR. 66-year-old female with past medical history of diabetes mellitus ( diagnosed in 1998), hypertension, coronary artery disease with prior stents, CHF , hyperlipidemia, asthma/COPD, chronic kidney disease stage III, prior tobacco abuse, iron deficiency anemia who presented to [facility] emergency department via [facility] after she was found altered at home today. Reportedly she was last seen normal 2 days prior. She was oriented to self, date of , president, but not year. She denies chest pain, shortness of breath, headache, neck pain, dysuria, abdominal pain, back pain, nausea, vomiting, diarrhea. Remainder review of systems negative. ED workup reveals DKA with pH of 7.11/ PaCO2 of 9/PA O2 of 134/bicarbonate 3/base deficit of 25.9. Anion gap is 30, glucose is 895, beta hydroxybutyrate 17.7. She has acute kidney injury with a creatinine of 2.51 (baseline 0.8 - 1. 2). Troponin is 0.89. EKG shows normal sinus rhythm at a rate of [address] changes. White blood cell count is 21.9. Urinalysis is negative for evidence of infection. CXR clear. Blood cultures have been obtained. She has received vancomycin and Zosyn in the ED. She has received 2 L normal saline bolus and has been started on an insulin drip. CBC/BMP: 07/19/17 0550 07/21/17 0525 Significant Findings Laboratory Tests Test 07/19/17 05:50 07/20/17 12:10 07/21/17 05:25 Red Blood Count 3.94 MIL/MM3 (4.00-5.30) Hemoglobin 11.1 GM/DL (11.6-15.3) Hematocrit 33.8 % (35.0-46.0) Blood Urea Nitrogen 26 MG/DL (7-18) 25 MG/DL (7-18) 25 MG/DL (7-18) Creatinine 1.48 MG/DL (0.50-1.00) 1.43 MG/DL (0.50-1.00) 1.57 MG/DL (0.50-1.00) Calcium Level 8.3 MG/DL (8.5-10.1) 8.2 MG/DL (8.5-10.1) Chloride Level 114 MEQ/L (98-107) 112 MEQ/L (98-107) 114 MEQ/L (98-107) Carbon Dioxide Level 17.1 MEQ/L (21.0-32.0) 16.5 MEQ/L (21.0-32.0) Estimat Glomerular Filtration Rate 35 ML/MIN (>89) 37 ML/MIN (>89) 33 ML/MIN (>89) Random Glucose 233 MG/DL (74-106) Triglycerides Level 226 MG/DL (42-150) Cholesterol Level 317 MG/DL (120-200) LDL Cholesterol 234 MG/DL (0-99) HDL Cholesterol 38.3 MG/DL (40.0-60.0) PE at Discharge GENERAL: laying in bed EYES: EOMI ENT: No nasal bleeding or discharge. Mucous membranes very dry. NECK: Trachea midline. No JVD. No meningismus CARDIOVASCULAR: Regular rate and rhythm. No murmurs rubs or gallops. RESPIRATORY: No accessory muscle use. Clear to auscultation with no wheezes GASTROINTESTINAL: Abdomen soft, non-tender, nondistended. Bowel sounds present. MUSCULOSKELETAL: Extremities without edema. NEUROLOGICAL: Awake, alert, answers questions appropriately. smiling Transfer Summary History from patient is very limited due to her mental status. I attempted to contact her at the phone numbers provided but there was no answer. He had already left the emergency department (ED RN states he was there briefly). History obtained from discussion with the ED physician and review of EMR. 66-year-old female with past medical history of diabetes mellitus ( diagnosed in 1998), hypertension, coronary artery disease with prior stents, CHF , hyperlipidemia, asthma/COPD, chronic kidney disease stage III, prior tobacco abuse, iron deficiency anemia who presented to [facility] emergency department via [facility] after she was found altered at home today. Reportedly she was last seen normal 2 days prior. She was oriented to self, date of , president, but not year. She denies chest pain, shortness of breath, headache, neck pain, dysuria, abdominal pain, back pain, nausea, vomiting, diarrhea. Remainder review of systems negative. ED workup reveals DKA with pH of 7.11/ PaCO2 of 9/PA O2 of 134/bicarbonate 3/base deficit of 25.9. Anion gap is 30, glucose is 895, beta hydroxybutyrate 17.7. She has acute kidney injury with a creatinine of 2.51 (baseline 0.8 - 1. 2). Troponin is 0.89. EKG shows normal sinus rhythm at a rate of [address] changes. White blood cell count is 21.9. Urinalysis is negative for evidence of infection. CXR clear. Blood cultures have been obtained. She has received vancomycin and Zosyn in the ED. She has received 2 L normal saline bolus and has been started on an insulin drip. 07/16: Patient remained confused, but oriented to person and place. She refuses to be examined more than few minutes. White count is slightly improved, from 22, 000 to 20,000. Troponin peaked at 3.4. Dr. Londonoat following. IV heparin and aspirin started per his request. Once creatinine is improved he'll consider cardiac catheterization. UO excellent. Creat remains high at 2.4 (patient has CKD 1.0-24 baseline creat) Subjective: 07/17 - Alert and mental status returned to baseline. She denies chest pain/ pressure or SOB. On RA. Transitioned off insulin drip to subcut. Eating small amounts, RN holding scheduled Novolog 5 units tid. Slow creatinine downtrend, 2.1 Hospital Course 66-year-old female with past medical history of diabetes mellitus ( diagnosed in 1998), hypertension, coronary artery disease with prior stents, CHF , hyperlipidemia, asthma/COPD, chronic kidney disease stage III, prior tobacco abuse, iron deficiency anemia who presented to [facility] emergency department via [facility] with altered mental status. She denied chest pain, shortness of breath, headache, neck pain, dysuria, abdominal pain, back pain, nausea, vomiting, diarrhea. She was found to have DKA, acute kidney injury , leukocytosis and elevated troponin on initial evaluation. She received vancomycin and Zosyn in the ED. She also received volume resuscitation at the ED. she was found to have acute toxic metabolic encephalopathy thought to be secondary to DKA. No clinical evidence of meningitis, LP was not performed, she was also on dual antiplatelet therapy. CT scan of the brain was unremarkable, ammonia is normal. Her symptoms resolved spontaneously after treatment of her metabolic derangements. Upon ED evaluation, she had mild troponin elevation which was followed. She was placed on heparin, cardiology was consulted. She was continued on statins and metoprolol. Her lisinopril and Norvasc were decreased because of mild hypotension. She went for cardiac catheterization 07/20/17. She was found to have 30% blockage of the distal left anterior descending, 99% of the diagonal status post stenting, 80% of obtuse marginal and 30% of the PDA. Her ejection fraction is 55%. She'll continue with aspirin and Effient on discharge. Because of hypotension during patient's stay and volume depletion, her Aldactone and Lasix were held. Patient also came in with acute renal failure secondary to volume depletion on top of chronic kidney disease stage III. Her creatinine improved, creatinine is likely at baseline on discharge. 4 leukocytosis, no obvious source of infection. Antibiotics were discontinued. One out of 6 blood cultures grew bacillus but most likely contaminant. C. difficile was negative. Urinalysis and chest x-ray were negative. For DKA/diabetes mellitus, she was placed on a DKA protocol, upon resolution of her DKA, she was continued on normal saline, she will be discharged on Levemir with sliding scale insulin. Blood glucose were stable and discharge. Pt Condition on Discharge: Good Discharge Disposition: Discharge Home Discharge Time: > 30 minutes Discharge Instructions DIET: Follow Instructions for: Heart Healthy Diet Activities you can perform: Regular-No Restrictions Follow up Referrals: Cardiology - 2 Weeks Rahul Woodward MD Jul 21, 2017 08:40
[2017-07-21] MEDS ORDERED: LEVEMIR SQ (08:49)
[2017-07-21] MEDS: INSULIN DETEMIR 100 UNITS/ML VIAL SQ SCH ×2 (09:00→21:00)
[2017-07-21] MEDS: HEPARIN SODIUM - SQ 10,000 UNITS/ML VIAL SQ SCH ×2 (09:00→21:54)
[2017-07-21] MEDS: LISINOPRIL 10 MG TAB PO SCH (09:00)
[2017-07-21] MEDS: ISOSORBIDE MONONITRATE 30 MG TAB PO SCH (09:00)
[2017-07-21] MEDS: DOCUSATE SODIUM 50 MG/SENNA 8.6 MG TAB PO SCH ×2 (09:00→21:00)
[2017-07-21] MEDS: METOPROLOL TARTRATE 50 MG TAB PO SCH (09:00)
[2017-07-21 10:12] LABS: AUTOMATED NEUTROPHIL # 3.3 TH/MM3 (1.8-7.7); BASOPHIL # 0.1 TH/MM3 (0-0.2); BASOPHIL % 1.1 % (0.0-2.0); EOSINOPHIL # 0.1 TH/MM3 (0-0.4); EOSINOPHIL % 0.9 % (0.0-4.0); HEMATOCRIT 34.1 % (35.0-46.0); HEMO FLAGS DIFF FINAL; LYMPH % 31.8 % (9.0-44.0); LYMPHOCYTE # 1.8 TH/MM3 (1.0-4.8); MEAN CELL VOLUME 87.3 FL (80.0-100.0); MEAN CORPUSCULAR HEMOGLOBIN 28.2 PG (27.0-34.0); MEAN CORPUSCULAR HGB CONC 32.3 % (32.0-36.0); MONO % 7.6 % (0.0-8.0); NEUT % 58.6 % (16.0-70.0); PLATELET COUNT 194 TH/MM3 (150-450); RED BLOOD COUNT 3.91 MIL/MM3 (4.00-5.30); RED CELL DISTRIBUTION WIDTH 15.5 % (11.6-17.2); WHITE BLOOD COUNT 5.7 TH/MM3 (4.0-11.0)
[2017-07-21] MEDS: ASPIRIN 81 MG CHEW TAB PO SCH (11:21)
[2017-07-21] MEDS: PRASUGREL 10 MG TAB PO SCH (11:22)
[2017-07-21] MEDS: FAMOTIDINE 20 MG TAB PO SCH ×2 (11:23→21:53)
[2017-07-21] MEDS: ATORVASTATIN 80 MG TAB PO SCH (11:23)
[2017-07-21] MEDS ORDERED: PHARMACY ORDERED LAB ONE (13:45)
[2017-07-21] MEDS: VANCOMYCIN 1,000 MG/NS 250 ML IV SCH ×2 (16:07)
--- NOTE | 2017-07-21 18:53 | PD.CARD.PN ---
Subjective Subjective Remarks No CP or SOB, orthostatic hypotension, meds on hold, creat 1.5 Objective Medications Current Medications Medications (Trade) Dose Ordered Sig/Marie Route Start Time Stop Time Status Last Admin (NS Flush) 2 ml UNSCH PRN IV FLUSH 07/15/17 14:00 (Duoneb Neb) 1 ampule Q2HR NEB PRN INH 07/15/17 18:00 Miscellaneous Information 1 Q361D XX 07/15/17 18:00 07/15/17 18:00 (Chlorhexidine 2% Cloth) Taper DAILY@04 TOP 07/16/17 04:00 07/12/18 03:59 07/18/17 02:30 (Chlorhexidine 2% Cloth) 3 pack UNSCH PRN TOP 07/15/17 18:00 (Jocelyn-Colace) 1 tab BID PO 07/15/17 21:00 07/18/17 20:46 (Milk Of Magnesia Liq) 30 ml Q12H PRN PO 07/15/17 18:00 (Senokot) 17.2 mg Q12H PRN PO 07/15/17 18:00 (Dulcolax Supp) 10 mg DAILY PRN RECTAL 07/15/17 18:00 (Lactulose Liq) 30 ml DAILY PRN PO 07/15/17 18:00 (Lipitor) 80 mg DAILY PO 07/16/17 10:00 07/21/17 11:23 (Levemir Inj) 8 units Q12HR SQ 07/16/17 12:00 07/20/17 21:00 (NovoLOG SUPPLEMENTAL SCALE) 1 ACHS SLIDING SCALE SQ 07/16/17 11:00 07/21/17 16:00 (D50w (Vial) Inj) 50 ml UNSCH PRN IV 07/16/17 10:30 07/20/17 05:46 (Glucagon Inj) 1 mg UNSCH PRN OTHER 07/16/17 10:30 Sodium Chloride 1,000 ml @ 60 mls/hr [id number] IV 07/16/17 10:30 07/21/17 00:18 Pharmacy Profile Note 0 ml @ 0 mls/hr UNSCH OTHER 07/16/17 16:15 (Apresoline Inj) 20 mg Q4H PRN IV PUSH 07/16/17 16:15 07/18/17 07:44 (Heparin Inj) 5,000 units Q12HR SQ 07/18/17 21:00 07/20/17 21:44 (Pepcid) 10 mg BID PO 07/18/17 09:00 07/21/17 11:23 Vancomycin HCl 1000 mg/Sodium Chloride 250 ml @ 250 mls/hr Q24H IV 07/19/17 14:00 07/21/17 16:07 (Aspirin Chew) 81 mg DAILY PO 07/20/17 14:30 07/21/17 11:21 (Effient) 10 mg DAILY PO 07/21/17 09:00 07/21/17 11:22 (Lopressor) 25 mg BID PO 07/21/17 21:00 Vital Signs / I&O Vital Signs Date Time Temp Pulse Resp B/P (MAP) Pulse Ox O2 Delivery O2 Flow Rate FiO2 07/21/17 18:04 59 07/21/17 17:00 62 07/21/17 16:00 61 07/21/17 15:00 98.0 60 19 126/56 (79) 97 07/21/17 15:00 58 07/21/17 14:00 58 07/21/17 13:00 57 07/21/17 12:17 55 07/21/17 11:00 54 20 120/60 (80) 98 07/21/17 11:00 54 07/21/17 10:00 56 07/21/17 09:00 59 07/21/17 08:45 56 20 140/66 (90) 97 133/69 (90) 84/31 (48) 07/21/17 08:00 54 07/21/17 07:00 56 07/21/17 07:00 98.0 56 20 110/60 (77) 98 07/21/17 06:00 50 07/21/17 05:00 53 07/21/17 04:00 54 07/21/17 03:00 53 07/21/17 03:00 97.8 55 20 116/59 (78) 97 07/21/17 02:00 52 07/21/17 01:00 53 07/21/17 00:00 55 07/20/17 23:00 54 07/20/17 23:00 97.5 57 20 103/64 (77) 97 07/20/17 22:00 58 07/20/17 21:00 58 07/20/17 20:00 61 07/20/17 19:00 97.6 61 20 124/63 (83) 98 07/20/17 19:00 60 I/O 07/20/17 07/20/17 07/20/17 07/21/17 07/21/17 07/21/17 06:59 14:59 22:59 06:59 14:59 22:59 Intake Total 1114 ml 1170 ml 300 ml Output Total 400 ml 200 ml Balance 714 ml -200 ml 1170 ml 300 ml Intake Oral 240 ml 400 ml IV Total 874 ml 770 ml 300 ml Output Urine Total 400 ml 200 ml # Voids 1 2 1 # Bowel Movements 0 1 Physical Exam GENERAL: In NAD SKIN: Warm and dry. HEAD: Normocephalic. EYES: No scleral icterus. No injection or drainage. NECK: Supple, trachea midline. No JVD or lymphadenopathy. CARDIOVASCULAR: Regular rate and rhythm without murmurs, gallops, or rubs. RESPIRATORY: Breath sounds equal bilaterally. No accessory muscle use. GASTROINTESTINAL: Abdomen soft, non-tender, nondistended. MUSCULOSKELETAL: No cyanosis, or edema. Groin stable Laboratory Laboratory Tests Test 07/21/17 05:25 07/21/17 09:30 07/21/17 16:08 Blood Urea Nitrogen 25 MG/DL Creatinine 1.57 MG/DL Random Glucose 233 MG/DL Calcium Level 8.2 MG/DL Sodium Level 140 MEQ/L Potassium Level 3.9 MEQ/L Chloride Level 114 MEQ/L Carbon Dioxide Level 16.5 MEQ/L Anion Gap 10 MEQ/L Estimat Glomerular Filtration Rate 33 ML/MIN Total Creatine Kinase 40 U/L Triglycerides Level 226 MG/DL Cholesterol Level 317 MG/DL LDL Cholesterol 234 MG/DL HDL Cholesterol 38.3 MG/DL Cholesterol/HDL Ratio 8.27 RATIO White Blood Count 5.7 TH/MM3 Red Blood Count 3.91 MIL/MM3 Hemoglobin 11.0 GM/DL Hematocrit 34.1 % Mean Corpuscular Volume 87.3 FL Mean Corpuscular Hemoglobin 28.2 PG Mean Corpuscular Hemoglobin Concent 32.3 % Red Cell Distribution Width 15.5 % Platelet Count 194 TH/MM3 Mean Platelet Volume 9.2 FL Neutrophils (%) (Auto) 58.6 % Lymphocytes (%) (Auto) 31.8 % Monocytes (%) (Auto) 7.6 % Eosinophils (%) (Auto) 0.9 % Basophils (%) (Auto) 1.1 % Neutrophils # (Auto) 3.3 TH/MM3 Lymphocytes # (Auto) 1.8 TH/MM3 Monocytes # (Auto) 0.4 TH/MM3 Eosinophils # (Auto) 0.1 TH/MM3 Basophils # (Auto) 0.1 TH/MM3 CBC Comment DIFF FINAL Differential Comment Vancomycin Level Trough 27.6 MCG/ML Imaging Last Impressions Chest X-Ray 07/16/17 0000 Signed Impressions: Service Date/Time: Sunday, July 16, 2017 10:28 - CONCLUSION: No acute disease. Nura Niño MD Head CT 07/15/17 1354 Signed Impressions: Service Date/Time: June 16:59 - CONCLUSION: 1. No acute intercranial abnormality. Wally Trimble MD Assessment and Plan Problem List: (1) NSTEMI (non-ST elevated myocardial infarction) ICD Codes: I21.4 - Non-ST elevation (NSTEMI) myocardial infarction Status: Acute (2) DKA (diabetic ketoacidoses) ICD Codes: E13.10 - Other specified diabetes mellitus with ketoacidosis without coma Status: Resolved (3) Sepsis ICD Codes: A41.9 - Sepsis, unspecified organism Status: Acute (4) CAD (coronary artery disease) ICD Codes: I25.10 - Atherosclerotic heart disease of [place] coronary artery without angina pectoris Status: Chronic (5) S/P coronary artery stent placement ICD Codes: Z95.5 - Presence of coronary angioplasty implant and graft Status: Acute Assessment and Plan No recurrent angina. Good D1 stent result. Groin stable. Creat 1.5, continue to monitor renal fx. Hold BP meds except metoprolol. Increase activity. Continue monitoring on tele. Problem Qualifiers (1) DKA (diabetic ketoacidoses): (2) Sepsis: Dunia Reddy MD Jul 21, 2017 18:53
--- NOTE | 2017-07-21 19:35 | EKG ---
Date Performed: 07/21/2017 Time Performed: 05:15:24 PTAGE: 66 years EKG: Sinus bradycardia Leftward axis Possible anteroseptal infarct - age undetermined Inferior/l ateral T wave changes are nonspecific Abnormal ECG PREVIOUS TRACING : 07/20/2017 15.33 Compared to prior tracing no significant change DOCTOR: Dunia Reddy Interpretating Date/Time 07/21/2017 19:34:10
--- NOTE | 2017-07-21 19:57 | EKG ---
Date Performed: 07/20/2017 Time Performed: 15:33:42 PTAGE: 66 years EKG: Sinus bradycardia. Leftward axis Possible septal infarct - age undetermined Inferior/latera l ST-T changes are nonspecific Low QRS voltages in precordial leads Abnormal ECG PREVIOUS TRACING : 07/16/2017 01.05 Compared to the previous tracing rate slower DOCTOR: Dunia Reddy Interpretating Date/Time 07/21/2017 19:55:58
[2017-07-21] MEDS: METOPROLOL TARTRATE 25 MG TAB PO SCH (21:53)
[2017-07-22] VITALS (25 sets, daily range): BP systolic 113–177; BP diastolic 68–83; PULSE 58–65; RESP 18–19; TEMP 97.6–98.6; O2SAT 94–98
[2017-07-22 06:05] LABS: HEMATOCRIT 30.4 % (35.0-46.0); MEAN CELL VOLUME 85.9 FL (80.0-100.0); MEAN CORPUSCULAR HEMOGLOBIN 29.1 PG (27.0-34.0); MEAN CORPUSCULAR HGB CONC 33.8 % (32.0-36.0); PLATELET COUNT 162 TH/MM3 (150-450); RED BLOOD COUNT 3.53 MIL/MM3 (4.00-5.30); RED CELL DISTRIBUTION WIDTH 14.9 % (11.6-17.2); REVIEW FLAG FINAL; WHITE BLOOD COUNT 5.4 TH/MM3 (4.0-11.0)
[2017-07-22] MEDS: INSULIN ASPART SUPPLEMENTAL SCALE SQ SCH ×4 (06:13→20:52)
[2017-07-22 06:33] LABS: BICARBONATE 18.2 MEQ/L (21.0-32.0); POTASSIUM 3.7 MEQ/L (3.5-5.1)
[2017-07-22] MEDS: ASPIRIN 81 MG CHEW TAB PO SCH (08:10)
[2017-07-22] MEDS: FAMOTIDINE 20 MG TAB PO SCH ×2 (08:10→20:46)
[2017-07-22] MEDS: PRASUGREL 10 MG TAB PO SCH (08:10)
[2017-07-22] MEDS: METOPROLOL TARTRATE 25 MG TAB PO SCH (08:10)
[2017-07-22] MEDS: ATORVASTATIN 80 MG TAB PO SCH (08:10)
[2017-07-22] MEDS: DOCUSATE SODIUM 50 MG/SENNA 8.6 MG TAB PO SCH ×2 (08:11→20:46)
[2017-07-22] MEDS: SODIUM CHLOR 0.9% 1000 ML INJ 1,000 ML IV SCH ×2 (08:11→20:45)
[2017-07-22] MEDS: HEPARIN SODIUM - SQ 10,000 UNITS/ML VIAL SQ SCH ×2 (08:11→20:46)
[2017-07-22] MEDS: INSULIN DETEMIR 100 UNITS/ML VIAL SQ SCH ×2 (08:14→20:53)
[2017-07-22] MEDS ORDERED: METOPROLOL TARTRATE 25 MG TAB PO ONE (10:15)
--- NOTE | 2017-07-22 10:30 | PD.CARD.PN ---
Subjective Subjective Remarks No CP or SOB Objective Medications Current Medications Medications (Trade) Dose Ordered Sig/Marie Route Start Time Stop Time Status Last Admin (NS Flush) 2 ml UNSCH PRN IV FLUSH 07/15/17 14:00 (Duoneb Neb) 1 ampule Q2HR NEB PRN INH 07/15/17 18:00 Miscellaneous Information 1 Q361D XX 07/15/17 18:00 07/15/17 18:00 (Chlorhexidine 2% Cloth) Taper DAILY@04 TOP 07/16/17 04:00 07/12/18 03:59 07/18/17 02:30 (Chlorhexidine 2% Cloth) 3 pack UNSCH PRN TOP 07/15/17 18:00 (Jocelyn-Colace) 1 tab BID PO 07/15/17 21:00 07/18/17 20:46 (Milk Of Magnesia Liq) 30 ml Q12H PRN PO 07/15/17 18:00 (Senokot) 17.2 mg Q12H PRN PO 07/15/17 18:00 (Dulcolax Supp) 10 mg DAILY PRN RECTAL 07/15/17 18:00 (Lactulose Liq) 30 ml DAILY PRN PO 07/15/17 18:00 (Lipitor) 80 mg DAILY PO 07/16/17 10:00 07/22/17 08:10 (Levemir Inj) 8 units Q12HR SQ 07/16/17 12:00 07/22/17 08:14 (NovoLOG SUPPLEMENTAL SCALE) 1 ACHS SLIDING SCALE SQ 07/16/17 11:00 07/22/17 06:13 (D50w (Vial) Inj) 50 ml UNSCH PRN IV 07/16/17 10:30 07/20/17 05:46 (Glucagon Inj) 1 mg UNSCH PRN OTHER 07/16/17 10:30 Sodium Chloride 1,000 ml @ 60 mls/hr [id number] IV 07/16/17 10:30 07/22/17 08:11 Pharmacy Profile Note 0 ml @ 0 mls/hr UNSCH OTHER 07/16/17 16:15 (Apresoline Inj) 20 mg Q4H PRN IV PUSH 07/16/17 16:15 07/18/17 07:44 (Heparin Inj) 5,000 units Q12HR SQ 07/18/17 21:00 07/22/17 08:11 (Pepcid) 10 mg BID PO 07/18/17 09:00 07/22/17 08:10 (Aspirin Chew) 81 mg DAILY PO 07/20/17 14:30 07/22/17 08:10 (Effient) 10 mg DAILY PO 07/21/17 09:00 07/22/17 08:10 (Lopressor) 25 mg NOW ONCE PO 07/22/17 10:15 07/22/17 10:16 UNV (Lopressor) 50 mg BID PO 07/22/17 21:00 UNV Vital Signs / I&O Vital Signs Date Time Temp Pulse Resp B/P (MAP) Pulse Ox O2 Delivery O2 Flow Rate FiO2 07/22/17 09:22 61 07/22/17 08:23 63 07/22/17 07:00 62 07/22/17 07:00 98.6 62 18 177/83 (114) 96 07/22/17 06:20 61 07/22/17 05:22 62 07/22/17 04:28 58 07/22/17 03:30 60 07/22/17 03:21 97.6 64 19 155/77 (103) 98 07/22/17 02:26 59 07/22/17 01:42 59 07/22/17 00:00 61 07/21/17 23:15 98.0 64 18 Automatic Cuff 95 07/21/17 23:00 62 07/21/17 22:00 64 07/21/17 21:00 59 07/21/17 20:00 58 07/21/17 19:15 97.4 63 18 156/67 (96) 95 07/21/17 19:00 59 07/21/17 18:04 59 07/21/17 17:00 62 07/21/17 16:00 61 07/21/17 15:00 98.0 60 19 126/56 (79) 97 07/21/17 15:00 58 07/21/17 14:00 58 07/21/17 13:00 57 07/21/17 12:17 55 07/21/17 11:00 54 20 120/60 (80) 98 07/21/17 11:00 54 I/O 07/21/17 07/21/17 07/21/17 07/22/1724/17 8/24/17 06:59 14:59 22:59 06:59 14:59 22:59 Intake Total 1170 ml 300 ml 240 ml Output Total 700 ml Balance 1170 ml 300 ml -460 ml Intake Oral 400 ml 240 ml IV Total 770 ml 300 ml Output Urine Total 700 ml # Voids 1 # Bowel Movements 1 Physical Exam GENERAL: In NAD SKIN: Warm and dry. HEAD: Normocephalic. EYES: No scleral icterus. No injection or drainage. NECK: Supple, trachea midline. No JVD or lymphadenopathy. CARDIOVASCULAR: Regular rate and rhythm without murmurs, gallops, or rubs. RESPIRATORY: Breath sounds equal bilaterally. No accessory muscle use. GASTROINTESTINAL: Abdomen soft, non-tender, nondistended. MUSCULOSKELETAL: No cyanosis, or edema. Groin stable Laboratory Laboratory Tests Test 07/21/17 16:08 07/22/17 05:04 Vancomycin Level Trough 27.6 MCG/ML White Blood Count 5.4 TH/MM3 Red Blood Count 3.53 MIL/MM3 Hemoglobin 10.3 GM/DL Hematocrit 30.4 % Mean Corpuscular Volume 85.9 FL Mean Corpuscular Hemoglobin 29.1 PG Mean Corpuscular Hemoglobin Concent 33.8 % Red Cell Distribution Width 14.9 % Platelet Count 162 TH/MM3 Mean Platelet Volume 9.5 FL Blood Urea Nitrogen 25 MG/DL Creatinine 1.68 MG/DL Random Glucose 153 MG/DL Calcium Level 8.9 MG/DL Sodium Level 142 MEQ/L Potassium Level 3.7 MEQ/L Chloride Level 115 MEQ/L Carbon Dioxide Level 18.2 MEQ/L Anion Gap 9 MEQ/L Estimat Glomerular Filtration Rate 31 ML/MIN Imaging Last Impressions Chest X-Ray 07/16/17 0000 Signed Impressions: Service Date/Time: Sunday, July 16, 2017 10:28 - CONCLUSION: No acute disease. Nura Niño MD Head CT 07/15/17 1354 Signed Impressions: Service Date/Time: June 16:59 - CONCLUSION: 1. No acute intercranial abnormality. Wally Trimble MD Assessment and Plan Problem List: (1) NSTEMI (non-ST elevated myocardial infarction) ICD Codes: I21.4 - Non-ST elevation (NSTEMI) myocardial infarction Status: Acute (2) DKA (diabetic ketoacidoses) ICD Codes: E13.10 - Other specified diabetes mellitus with ketoacidosis without coma Status: Resolved (3) Sepsis ICD Codes: A41.9 - Sepsis, unspecified organism Status: Acute (4) CAD (coronary artery disease) ICD Codes: I25.10 - Atherosclerotic heart disease of [place] coronary artery without angina pectoris Status: Chronic (5) S/P coronary artery stent placement ICD Codes: Z95.5 - Presence of coronary angioplasty implant and graft Status: Acute Assessment and Plan No recurrent angina. Good D1 stent result. Groin stable. Creat increased at 1.7 , continue to monitor renal fx, PO hydration. Increase metoprolol, hold other BP meds due to orthostatic hypotension, closely monitor BP. Increase activity. Continue monitoring on tele. Home possibly tomorrow if stable. Problem Qualifiers (1) DKA (diabetic ketoacidoses): (2) Sepsis: Dunia Reddy MD Jul 22, 2017 10:30
--- NOTE | 2017-07-22 16:24 | HHI.PR ---
Subjective Remarks Patient sitting in bed in no distress. Denies any chest pain, sob, fever or chills. She is wanting to go home hopefully tomorrow. Objective Vitals Vital Signs Date Time Temp Pulse Resp B/P (MAP) Pulse Ox O2 Delivery O2 Flow Rate FiO2 07/22/17 15:30 62 07/22/17 15:28 97.7 63 18 160/80 (106) 95 07/22/17 15:27 61 07/22/17 13:24 64 07/22/17 12:09 65 07/22/17 11:00 97.6 61 18 170/80 (110) 94 117/64 (81) 113/68 (83) 07/22/17 11:00 61 07/22/17 09:22 61 07/22/17 08:23 63 07/22/17 07:00 62 07/22/17 07:00 98.6 62 18 177/83 (114) 96 07/22/17 06:20 61 07/22/17 05:22 62 07/22/17 04:28 58 07/22/17 03:30 60 07/22/17 03:21 97.6 64 19 155/77 (103) 98 07/22/17 02:26 59 07/22/17 01:42 59 07/22/17 00:00 61 07/21/17 23:15 98.0 64 18 Automatic Cuff 95 07/21/17 23:00 62 07/21/17 22:00 64 07/21/17 21:00 59 07/21/17 20:00 58 07/21/17 19:15 97.4 63 18 156/67 (96) 95 07/21/17 19:00 59 07/21/17 18:04 59 07/21/17 17:00 62 I/O 07/21/17 07/21/17 07/21/17 07/22/17 07/22/17 07/22/17 07:00 15:00 23:00 07:00 15:00 23:00 Intake Total 1170 ml 300 ml 240 ml Output Total 700 ml Balance 1170 ml 300 ml -460 ml Intake Oral 400 ml 240 ml IV Total 770 ml 300 ml Output Urine Total 700 ml # Voids 1 # Bowel Movements 1 Result Diagram: 07/22/17 0504 07/22/17 050 Objective Remarks GENERAL: laying in bed ENT: No nasal bleeding or discharge. Mucous membranes very dry. NECK: Trachea midline. No JVD. No meningismus CARDIOVASCULAR: Regular rate and rhythm. No murmurs rubs or gallops. RESPIRATORY: No accessory muscle use. Clear to auscultation with no wheezes GASTROINTESTINAL: Abdomen soft, non-tender, nondistended. Bowel sounds present. MUSCULOSKELETAL: Extremities without edema. NEUROLOGICAL: Awake, alert, answers questions appropriately. Procedures PCI 07/20/17 Medications and IVs Current Medications Medications (Trade) Dose Ordered Sig/Marie Route Start Time Stop Time Status Last Admin (NS Flush) 2 ml UNSCH PRN IV FLUSH 07/15/17 14:00 (Duoneb Neb) 1 ampule Q2HR NEB PRN INH 07/15/17 18:00 Miscellaneous Information 1 Q361D XX 07/15/17 18:00 07/15/17 18:00 (Chlorhexidine 2% Cloth) Taper DAILY@04 TOP 07/16/17 04:00 07/12/18 03:59 07/18/17 02:30 (Chlorhexidine 2% Cloth) 3 pack UNSCH PRN TOP 07/15/17 18:00 (Jocelyn-Colace) 1 tab BID PO 07/15/17 21:00 07/18/17 20:46 (Milk Of Magnesia Liq) 30 ml Q12H PRN PO 07/15/17 18:00 (Senokot) 17.2 mg Q12H PRN PO 07/15/17 18:00 (Dulcolax Supp) 10 mg DAILY PRN RECTAL 07/15/17 18:00 (Lactulose Liq) 30 ml DAILY PRN PO 07/15/17 18:00 (Lipitor) 80 mg DAILY PO 07/16/17 10:00 07/22/17 08:10 (Levemir Inj) 8 units Q12HR SQ 07/16/17 12:00 07/22/17 08:14 (NovoLOG SUPPLEMENTAL SCALE) 1 ACHS SLIDING SCALE SQ 07/16/17 11:00 07/22/17 06:13 (D50w (Vial) Inj) 50 ml UNSCH PRN IV 07/16/17 10:30 07/20/17 05:46 (Glucagon Inj) 1 mg UNSCH PRN OTHER 07/16/17 10:30 Sodium Chloride 1,000 ml @ 60 mls/hr [id number] IV 07/16/17 10:30 07/22/17 08:11 Pharmacy Profile Note 0 ml @ 0 mls/hr UNSCH OTHER 07/16/17 16:15 (Apresoline Inj) 20 mg Q4H PRN IV PUSH 07/16/17 16:15 07/18/17 07:44 (Heparin Inj) 5,000 units Q12HR SQ 07/18/17 21:00 07/22/17 08:11 (Pepcid) 10 mg BID PO 07/18/17 09:00 07/22/17 08:10 (Aspirin Chew) 81 mg DAILY PO 07/20/17 14:30 07/22/17 08:10 (Effient) 10 mg DAILY PO 07/21/17 09:00 07/22/17 08:10 (Lopressor) 50 mg BID PO 07/22/17 21:00 A/P Problem List: (1) H/O tobacco use, presenting hazards to health ICD Code: Z87.891 - Personal history of nicotine dependence Status: Chronic (2) NSTEMI, initial episode of care ICD Code: I21.4 - Non-ST elevation (NSTEMI) myocardial infarction Status: Acute (3) COPD (chronic obstructive pulmonary disease) ICD Code: J44.9 - Chronic obstructive pulmonary disease, unspecified Status: Chronic (4) HTN (hypertension) ICD Code: I10 - Essential (primary) hypertension Status: Chronic (5) CONOR (acute kidney injury) ICD Code: N17.9 - Acute kidney failure, unspecified Status: Acute (6) CAD (coronary artery disease) ICD Code: I25.10 - Atherosclerotic heart disease of [place] coronary artery without angina pectoris Status: Chronic (7) DKA (diabetic ketoacidoses) ICD Code: E13.10 - Other specified diabetes mellitus with ketoacidosis without coma Status: Resolved (8) NSTEMI (non-ST elevated myocardial infarction) ICD Code: I21.4 - Non-ST elevation (NSTEMI) myocardial infarction Status: Acute (9) GERD (gastroesophageal reflux disease) ICD Code: K21.9 - Gastro-esophageal reflux disease without esophagitis Status: Chronic (10) Acute encephalopathy ICD Code: G93.40 - Encephalopathy, unspecified Status: Resolved (11) CKD (chronic kidney disease) stage 3, GFR 30-59 ml/min ICD Code: N18.3 - Chronic kidney disease, stage 3 (moderate) Status: Chronic Assessment and Plan Acute encephalopathy, suspect toxic metabolic secondary to severe DKA, sepsis, resolved History of sciatica, History of migraines -No clinical evidence of meningitis. On dual antiplatelet therapy, LP was not performed as suspicion for meningitis was low. -Acute encephalopathy most likely secondary to metabolic causes. resolved -CT brain 07/15/17no acute abnormality -Ammonia level normal COPD Former tobacco abuse -On room air. Protecting airway. -DuoNeb every 6 hours when necessary NSTEMI, Coronary artery disease with prior stent, Hypertension, Hyperlipidemia, orthostatic + Patient previously seen by Dr. Reddy in 2014 - Cardiac catheterization stent to proximal RCA and mid LAD -Cont subcutaneous heparin per Dr. Reddy request. -Continue aspirin 81 mill grams by mouth daily. Continue Effient 10 mg by mouth daily -Continue atorvastatin 80 mg by mouth daily. Continue metoprolol 50 mill grams by mouth twice a day -All other BP meds on hold per cardiology due to orthostatic hypotension -Echo 03/15/17EF 55-60%. Mild MRMabel GERD, chronic -1999 ADA diet -pepcid Acute kidney injury overlying chronic kidney disease stage III, appears at baseline -Monitor I/O. Monitor electrolytes and replace as indicated. -Cont IVF to 60/hr. -Encourage PO Leukocytosis, Diarrhea R/o C Diff, C Diff negative, resolved Chronic anemia, iron deficiency -Monitor CBC. DKA-resolved -on levemir 8 units subcutaneous every 12. cover w low dose ISS DVT prophylaxis: Heparin Discharge Planning Possible tomorrow if ok with cardiology Problem Qualifiers (1) DKA (diabetic ketoacidoses): Jane Monaco Jul 22, 2017 16:23
[2017-07-22] MEDS: METOPROLOL TARTRATE 50 MG TAB PO SCH (20:46)
[2017-07-23] VITALS (12 sets, daily range): BP systolic 144–185; BP diastolic 61–85; PULSE 60–68; RESP 18; TEMP 97.6–98.5; O2SAT 95–97
[2017-07-23] MEDS: hydrALAZINE HCL 20 MG/ML VIAL IV PUSH PRN (01:40)
[2017-07-23] MEDS: CHLORHEXIDINE GLUCONATE 2 % 1 PACK (2 CLOTHS) TOP SCH (04:00)
[2017-07-23] MEDS: INSULIN ASPART SUPPLEMENTAL SCALE SQ SCH (06:07)
[2017-07-23 07:13] LABS: BICARBONATE 20.1 MEQ/L (21.0-32.0); POTASSIUM 3.6 MEQ/L (3.5-5.1)
[2017-07-23] MEDS: ATORVASTATIN 80 MG TAB PO SCH (08:23)
[2017-07-23] MEDS: ASPIRIN 81 MG CHEW TAB PO SCH (08:23)
[2017-07-23] MEDS: PRASUGREL 10 MG TAB PO SCH (08:23)
[2017-07-23] MEDS: DOCUSATE SODIUM 50 MG/SENNA 8.6 MG TAB PO SCH (08:23)
[2017-07-23] MEDS: METOPROLOL TARTRATE 50 MG TAB PO SCH (08:23)
[2017-07-23] MEDS: FAMOTIDINE 20 MG TAB PO SCH (08:23)
[2017-07-23] MEDS: HEPARIN SODIUM - SQ 10,000 UNITS/ML VIAL SQ SCH (08:24)
[2017-07-23] MEDS: INSULIN DETEMIR 100 UNITS/ML VIAL SQ SCH (08:30)
--- NOTE | 2017-07-23 09:46 | HHI.DS ---
Discharge Summary Admission Date Jul 15, 2017 at 17:56 Discharge Date: Jul 23, 2017 Admitting Diagnosis sepsis w/multiorgan failure, metabolic encephalopathy, elevated T (1) H/O tobacco use, presenting hazards to health ICD Code: Z87.891 - Personal history of nicotine dependence Diagnosis: Secondary Status: Chronic (2) NSTEMI, initial episode of care ICD Code: I21.4 - Non-ST elevation (NSTEMI) myocardial infarction Diagnosis: Principal Status: Acute (3) COPD (chronic obstructive pulmonary disease) ICD Code: J44.9 - Chronic obstructive pulmonary disease, unspecified Diagnosis: Secondary Status: Chronic (4) HTN (hypertension) ICD Code: I10 - Essential (primary) hypertension Diagnosis: Secondary Status: Chronic (5) CONOR (acute kidney injury) ICD Code: N17.9 - Acute kidney failure, unspecified Diagnosis: Secondary Status: Acute (6) CAD (coronary artery disease) ICD Code: I25.10 - Atherosclerotic heart disease of [place] coronary artery without angina pectoris Diagnosis: Secondary Status: Chronic (7) DKA (diabetic ketoacidoses) ICD Code: E13.10 - Other specified diabetes mellitus with ketoacidosis without coma Diagnosis: Principal Status: Resolved (8) NSTEMI (non-ST elevated myocardial infarction) ICD Code: I21.4 - Non-ST elevation (NSTEMI) myocardial infarction Diagnosis: Principal Status: Acute (9) GERD (gastroesophageal reflux disease) ICD Code: K21.9 - Gastro-esophageal reflux disease without esophagitis Diagnosis: Secondary Status: Chronic (10) Acute encephalopathy ICD Code: G93.40 - Encephalopathy, unspecified Diagnosis: Secondary Status: Resolved (11) CKD (chronic kidney disease) stage 3, GFR 30-59 ml/min ICD Code: N18.3 - Chronic kidney disease, stage 3 (moderate) Diagnosis: Secondary Status: Chronic Procedures PCI 07/20/17 Brief History - From Admission History from patient is very limited due to her mental status. I attempted to contact her at the phone numbers provided but there was no answer. He had already left the emergency department (ED RN states he was there briefly). History obtained from discussion with the ED physician and review of EMR. 66-year-old female with past medical history of diabetes mellitus ( diagnosed in 1998), hypertension, coronary artery disease with prior stents, CHF , hyperlipidemia, asthma/COPD, chronic kidney disease stage III, prior tobacco abuse, iron deficiency anemia who presented to [facility] emergency department via [facility] after she was found altered at home today. Reportedly she was last seen normal 2 days prior. She was oriented to self, date of , president, but not year. She denies chest pain, shortness of breath, headache, neck pain, dysuria, abdominal pain, back pain, nausea, vomiting, diarrhea. Remainder review of systems negative. ED workup reveals DKA with pH of 7.11/ PaCO2 of 9/PA O2 of 134/bicarbonate 3/base deficit of 25.9. Anion gap is 30, glucose is 895, beta hydroxybutyrate 17.7. She has acute kidney injury with a creatinine of 2.51 (baseline 0.8 - 1. 2). Troponin is 0.89. EKG shows normal sinus rhythm at a rate of [address] changes. White blood cell count is 21.9. Urinalysis is negative for evidence of infection. CXR clear. Blood cultures have been obtained. She has received vancomycin and Zosyn in the ED. She has received 2 L normal saline bolus and has been started on an insulin drip. CBC/BMP: 07/22/17 0504 07/23/17 0610 Significant Findings Laboratory Tests Test 07/20/17 12:10 07/21/17 05:25 07/21/17 09:30 07/21/17 16:08 Blood Urea Nitrogen 25 MG/DL (7-18) 25 MG/DL (7-18) Creatinine 1.43 MG/DL (0.50-1.00) 1.57 MG/DL (0.50-1.00) Chloride Level 112 MEQ/L (98-107) 114 MEQ/L (98-107) Estimat Glomerular Filtration Rate 37 ML/MIN (>89) 33 ML/MIN (>89) Random Glucose 233 MG/DL (74-106) Calcium Level 8.2 MG/DL (8.5-10.1) Carbon Dioxide Level 16.5 MEQ/L (21.0-32.0) Triglycerides Level 226 MG/DL (42-150) Cholesterol Level 317 MG/DL (120-200) LDL Cholesterol 234 MG/DL (0-99) HDL Cholesterol 38.3 MG/DL (40.0-60.0) Red Blood Count 3.91 MIL/MM3 (4.00-5.30) Hemoglobin 11.0 GM/DL (11.6-15.3) Hematocrit 34.1 % (35.0-46.0) Vancomycin Level Trough 27.6 MCG/ML (5.0-10.0) Test 07/22/17 05:04 07/23/17 06:10 Red Blood Count 3.53 MIL/MM3 (4.00-5.30) Hemoglobin 10.3 GM/DL (11.6-15.3) Hematocrit 30.4 % (35.0-46.0) Blood Urea Nitrogen 25 MG/DL (7-18) 25 MG/DL (7-18) Creatinine 1.68 MG/DL (0.50-1.00) 1.60 MG/DL (0.50-1.00) Random Glucose 153 MG/DL (74-106) Chloride Level 115 MEQ/L (98-107) 114 MEQ/L (98-107) Carbon Dioxide Level 18.2 MEQ/L (21.0-32.0) 20.1 MEQ/L (21.0-32.0) Estimat Glomerular Filtration Rate 31 ML/MIN (>89) 32 ML/MIN (>89) PE at Discharge GENERAL: laying in bed ENT: No nasal bleeding or discharge. Mucous membranes very dry. NECK: Trachea midline. No JVD. No meningismus CARDIOVASCULAR: Regular rate and rhythm. No murmurs rubs or gallops. RESPIRATORY: No accessory muscle use. Clear to auscultation with no wheezes GASTROINTESTINAL: Abdomen soft, non-tender, nondistended. Bowel sounds present. MUSCULOSKELETAL: Extremities without edema. NEUROLOGICAL: Awake, alert, answers questions appropriately. Transfer Summary History from patient is very limited due to her mental status. I attempted to contact her at the phone numbers provided but there was no answer. He had already left the emergency department (ED RN states he was there briefly). History obtained from discussion with the ED physician and review of EMR. 66-year-old female with past medical history of diabetes mellitus ( diagnosed in 1998), hypertension, coronary artery disease with prior stents, CHF , hyperlipidemia, asthma/COPD, chronic kidney disease stage III, prior tobacco abuse, iron deficiency anemia who presented to [facility] emergency department via [facility] after she was found altered at home today. Reportedly she was last seen normal 2 days prior. She was oriented to self, date of , president, but not year. She denies chest pain, shortness of breath, headache, neck pain, dysuria, abdominal pain, back pain, nausea, vomiting, diarrhea. Remainder review of systems negative. ED workup reveals DKA with pH of 7.11/ PaCO2 of 9/PA O2 of 134/bicarbonate 3/base deficit of 25.9. Anion gap is 30, glucose is 895, beta hydroxybutyrate 17.7. She has acute kidney injury with a creatinine of 2.51 (baseline 0.8 - 1. 2). Troponin is 0.89. EKG shows normal sinus rhythm at a rate of [address] changes. White blood cell count is 21.9. Urinalysis is negative for evidence of infection. CXR clear. Blood cultures have been obtained. She has received vancomycin and Zosyn in the ED. She has received 2 L normal saline bolus and has been started on an insulin drip. 07/16: Patient remained confused, but oriented to person and place. She refuses to be examined more than few minutes. White count is slightly improved, from 22, 000 to 20,000. Troponin peaked at 3.4. Dr. Reddy following. IV heparin and aspirin started per his request. Once creatinine is improved he'll consider cardiac catheterization. UO excellent. Creat remains high at 2.4 (patient has CKD 1.0-24 baseline creat) Subjective: 07/17 - Alert and mental status returned to baseline. She denies chest pain/ pressure or SOB. On RA. Transitioned off insulin drip to subcut. Eating small amounts, RN holding scheduled Novolog 5 units tid. Slow creatinine downtrend, 2.1 Pt update on day of discharge Patient seen and examined, she was laying in bed, she wants to be discharged today She denied any chest pain lightheaded or dizziness on rest or ambulation I explained to her she will need to get her blood pressure checked as well as her blood work BMP in a week and follow up with her PCP as well as Dr. sullivan procedure tech Hospital Course 66-year-old female with past medical history of diabetes mellitus ( diagnosed in 1998), hypertension, coronary artery disease with prior stents, CHF , hyperlipidemia, asthma/COPD, chronic kidney disease stage III, prior tobacco abuse, iron deficiency anemia who presented to [facility] emergency department via [facility] with altered mental status. She denied chest pain, shortness of breath, headache, neck pain, dysuria, abdominal pain, back pain, nausea, vomiting, diarrhea. She was found to have DKA, acute kidney injury , leukocytosis and elevated troponin on initial evaluation. She received vancomycin and Zosyn in the ED. She also received volume resuscitation at the ED. she was found to have acute toxic metabolic encephalopathy thought to be secondary to DKA. No clinical evidence of meningitis, LP was not performed, she was also on dual antiplatelet therapy. CT scan of the brain was unremarkable, ammonia is normal. Her symptoms resolved spontaneously after treatment of her metabolic derangements. Upon ED evaluation, she had mild troponin elevation which was followed. She was placed on heparin, cardiology was consulted. She was continued on statins and metoprolol. Her lisinopril and Norvasc were decreased because of mild hypotension. She went for cardiac catheterization 07/20/17. She was found to have 30% blockage of the distal left anterior descending, 99% of the diagonal status post stenting, 80% of obtuse marginal and 30% of the PDA. Her ejection fraction is 55%. She'll continue with aspirin and Effient on discharge. Because of hypotension during patient's stay and volume depletion, her Aldactone and Lasix were held. Patient also came in with acute renal failure secondary to volume depletion on top of chronic kidney disease stage III. Her creatinine improved, creatinine is likely at baseline on discharge. 4 leukocytosis, no obvious source of infection. Antibiotics were discontinued. One out of 6 blood cultures grew bacillus but most likely contaminant. C. difficile was negative. Urinalysis and chest x-ray were negative. For DKA/diabetes mellitus, she was placed on a DKA protocol, upon resolution of her DKA, she was continued on normal saline, she will be discharged on Levemir with sliding scale insulin. Blood glucose were stable and discharge. Tax Accountant held lisinopril, amlodipine, isosorbide due to the renal failure, increased Lopressor, blood pressure stable around 144/67, will order BMP in a week to be forwarded to her PCP, Dr. sullivan to follow with the patient to place her back on RUSS inhibitor and other antihypertensive if blood pressure and kidney number allow accordingly Pt Condition on Discharge: Good Discharge Disposition: Discharge Home Discharge Time: > 30 minutes Discharge Instructions DIET: Follow Instructions for: Heart Healthy Diet Activities you can perform: Regular-No Restrictions Follow up Referrals: Cardiology - 2 Weeks New Orders: BASIC METABOLIC PROF - 1 Week New Medications: Insulin Detemir Inj (Levemir Inj) 1,000 unit/ 10 ML Vial 8 UNITS SQ Q12HR for Blood Sugar Management for 30 Days, #60 INJECTION Do not mix with any other Insulin. Continued Medications: Aspirin (Aspirin) 81 Mg Chew 81 MG CHEW DAILY, TAB 0 Refills Folic Acid (Folic Acid) 800 Mcg Tab 1600 MCG PO DAILY for Nutritional Supplement, TAB 0 Refills Gabapentin (Gabapentin) 100 Mg Cap 100 MG PO TID for neuropathy , #60 CAP Hydrocodone-Acetaminophen (Hydrocodone-Acetaminophen) 10-325 mg Tab 1 TAB PO Q4H PRN for PAIN SCALE 6 TO 10, #15 TAB 0 Refills Insulin Aspart Inj (Novolog Inj) 100 Unit/Ml Inj 1 UNITS SQ ACHS SLIDING SCALE for Blood Sugar Management for 30 Days, INJECTION Sliding Scale As Directed.150-199 1 Unit; 200-249 3 units; 250-299 5 Units; 300-349 7 Units; Metoprolol Tartrate (Metoprolol Tartrate) 50 Mg Tab 50 MG PO BID, #60 TAB 0 Refills Nitroglycerin SL (Nitroglycerin SL) 0.4 Mg Subl 0.4 MG SL DIRECTED PRN for CHEST PAIN, #100 TAB.SL 0 Refills ONE TABLET UNDER THE TONGUE NEEDED FOR CHEST PAIN, MAY REPEAT EVERY FIVE MINUTES FOR A TOTAL OF 3 DOSES OR CALL 911 IF NO RELIEF Prasugrel (Effient) 10 Mg Tab 10 MG PO DAILY for Blood Clot Prevention, #30 TAB 0 Refills Pravastatin (Pravastatin) 40 Mg Tab 40 MG PO DAILY for Cholesterol Management, #30 TAB 0 Refills Ranitidine (Ranitidine) 150 Mg Cap 150 MG PO DAILY PRN for REFLUX, #30 CAP 0 Refills Zinc Gluconate (Zinc) 50 Mg Tab 50 MG PO DAILY Discontinued Medications: Amlodipine (Norvasc) 10 Mg Tab 10 MG PO DAILY for Blood Pressure Management, #30 TAB 0 Refills Furosemide (Furosemide) 40 Mg Tab 40 MG PO DAILY for edema , #14 TAB Insulin Detemir Inj (Levemir Inj) 1,000 unit/ 10 ML Vial 5 UNITS SQ DAILY for Blood Sugar Management for 30 Days, INJECTION Isosorbide Mononitrate ER (Isosorbide Mononitrate ER) 30 Mg Abbey 30 MG PO DAILY for Prevent Chest Pain, #30 TAB 0 Refills Lisinopril (Lisinopril) 20 Mg Tab 20 MG PO DAILY, #30 TAB 0 Refills Spironolactone (Spironolactone) 25 Mg Tab 25 MG PO DAILY, #30 TAB 0 Refills Mukesh Arana MD Jul 23, 2017 09:46
[2017-08-17] MEDS ORDERED: LISI-519 PO (13:09)
== END 2017-07-23 11:07 | disposition home or self-care (01) | DRG 853 ==
LOC: NEPC 11:52 → NEDA 17:56 → HIMN 20:00 → HCIS 07-18 22:37
PROVIDERS: ADMIT Hospitalist; ATTEND Hospitalist
PROC: 027034Z Dilation of Coronary Artery, One Artery with Drug-eluting Intraluminal Device, Percutaneous Approach (ICD-10-PCS; 2017-07-20)
PROC: B2111ZZ Fluoroscopy of Multiple Coronary Arteries using Low Osmolar Contrast (ICD-10-PCS; 2017-07-20)
PROC: B2151ZZ Fluoroscopy of Left Heart using Low Osmolar Contrast (ICD-10-PCS; 2017-07-20)
PROC: 4A023N7 Measurement of Cardiac Sampling and Pressure, Left Heart, Percutaneous Approach (ICD-10-PCS; principal; 2017-07-20 12:15)
DX: A41.9 Sepsis, unspecified organism (principal); G92 Toxic encephalopathy; I21.4 Non-ST elevation (NSTEMI) myocardial infarction; N17.9 Acute kidney failure, unspecified; E13.10 Other specified diabetes mellitus with ketoacidosis without coma; I13.0 Hypertensive heart and chronic kidney disease with heart failure and stage 1 through stage 4 chronic kidney disease, or unspecified chronic kidney disease; T82.855A Stenosis of coronary artery stent, initial encounter; E11.22 Type 2 diabetes mellitus with diabetic chronic kidney disease; N18.3 Chronic kidney disease, stage 3 (moderate); R65.20 Severe sepsis without septic shock; E11.319 Type 2 diabetes mellitus with unspecified diabetic retinopathy without macular edema; D50.9 Iron deficiency anemia, unspecified; E78.5 Hyperlipidemia, unspecified; E86.9 Volume depletion, unspecified; I25.119 Atherosclerotic heart disease of native coronary artery with unspecified angina pectoris; I25.2 Old myocardial infarction; I50.9 Heart failure, unspecified; I95.1 Orthostatic hypotension; J44.9 Chronic obstructive pulmonary disease, unspecified; K21.9 Gastro-esophageal reflux disease without esophagitis; Y83.1 Surgical operation with implant of artificial internal device as the cause of abnormal reaction of the patient, or of later complication, without mention of misadventure at the time of the procedure; Z79.4 Long term (current) use of insulin; Z79.82 Long term (current) use of aspirin; Z79.899 Other long term (current) drug therapy; Z87.891 Personal history of nicotine dependence; T14.8 Other injury of unspecified body region; W54.0XXA Bitten by dog, initial encounter; Y92.9 Unspecified place or not applicable
CPT/HCPCS: 36600; 51702; 70450; 71010; 80048; 80053; 80061; 80202; 80307; 81001; 82010; 82140; 82550; 82552; 82805; 82947; 82948; 83036; 83540; 83550; 83605; 83735; 84100; 84443; 84484; 85002; 85007; 85025; 85027; 85044; 85610; 85730; 87040; 87086; 87205; 87493; 87641; 92928; 93005; 93308; 93458; 96374; 96375; C1725; C1760; C1769; C1874; C1887; C1893; C9113; J0360; J1644; J1650; J1815; J1817; J2250; J2543; J3010; J3370; J3480; J7030; J7042; J7050; Q9967

== ENCOUNTER 2017-08-10 13:11 | Inpatient (IN) | payer MEDICARE, BC ==
[~2017-08-10] VITALS: Ht 162.6 cm; Wt 94.4 kg
[~2017-08-10 13:11] MED LIST changes: -AMLO10 PO; -CHEL50TA PO; -FOLI800T PO; -FURO40TA PO; -GABA100C4 PO; -HYDR-3583 PO; -ISOS30TA3 PO; -LISI-515 PO; -NITR1SUB3 SL; -PRAV40TA2 PO; -RANI150C PO; -SPIR25TA PO
[2017-08-10 13:14] VITALS: BP 225/95; PULSE 65; RESP 17; TEMP 98.1; O2SAT 96
--- NOTE | 2017-08-10 14:40 | RADRPT ---
EXAM DATE/TIME: 08/10/2017 14:35 [place] COMPARISON: CHEST SINGLE AP, July 16, 2017, 10:28. INDICATIONS : Short of breath with chest pressure. MEDICAL HISTORY : Myocardial infarction. SURGICAL HISTORY : Coronary artery stent. ENCOUNTER: Initial ACUITY: 2 days PAIN SCORE: 8/10 LOCATION: Bilateral chest FINDINGS: The study is Midinspiratory with consolidative opacity at the left lung base with obscuration of the left hemidiaphragm and blunting of the costophrenic angle. There is milder opacity at the right later al lung base with blunting of the costophrenic angle. The heart size appears mildly prominent. The jl ny thorax is intact. CONCLUSION: 1. New consolidative opacity in the left lung base with blunting of the costophrenic angle consistent with effusion and/or infiltrate. 2. Milder blunting of the right costophrenic angle with patchy opacity in the lateral costophrenic an gle region Nura Niño MD on August 10, 2017 at 14:37 Board Certified Radiologist. This report was verified electronically.
--- NOTE | 2017-08-10 19:00 | PD ---
HPI Chief Complaint: Respiratory Symptoms Time Seen by Provider: 16:14 Travel History International Travel<30 days: No Contact w/Intl Traveler<30days: No Traveled to known affect area: No History of Present Illness HPI This is a 66-year-old female who presents to the emergency department with a history of a left-sided pleural effusion and chronic anemia with increasing shortness of breath it's been going on for 4 days, constant, moderate severity, worse with exertion improved with rest. She denies any chest pain. She says this feels similar to when her effusion needed to be drained in the past. PFSH Past Medical History Hx Anticoagulant Therapy: Yes (ASPIRIN ) Anemia: Yes (iron deficiency) Arthritis: Yes Asthma: Yes Anxiety: No Depression: No Heart Rhythm Problems: No Cancer: No Cardiovascular Problems: Yes (htn on med, Hx AL with stents) High Cholesterol: No Chemotherapy: No Chest Pain: Yes Congestive Heart Failure: Yes COPD: Yes Cerebrovascular Accident: No Coronary Artery Disease: Yes Diabetes: Yes Patient Takes Glucophage: No Diminished Hearing: No Endocrine: No Gastrointestinal Disorders: No GERD: No Genitourinary: No Headaches: No Hepatitis: No Hiatal Hernia: Yes Hypertension: Yes Immune Disorder: No Implanted Vascular Access Dvce: No Kidney Stones: No Musculoskeletal: Yes (ARTHRITIS) Neurologic: Yes (LAMINECTOMY,SIATICA, NEUROPATHY) Psychiatric: No Reproductive: No Respiratory: Yes (copd) Immunizations Current: Yes Migraines: Yes Myocardial Infarction: Yes (STENTS X 2) Radiation Therapy: No Renal Failure: No Seizures: No Sleep Apnea: No Thyroid Disease: No Ulcer: No Menopausal: Yes : 1 Para: 1 Miscarriage: 0 Past Surgical History Abdominal Surgery: Yes (appy) AICD: No Appendectomy: Yes Body Medical Devices: CARDIAC STENTS X3 Cardiac Surgery: No Section: Yes Ear Surgery: No Endocrine Surgery: No Eye Surgery: No Genitourinary Surgery: No Gynecologic Surgery: Yes (C-SECT., HYSTERECTOMY) Hysterectomy: Yes Joint Replacement: No Neurologic Surgery: No Oral Surgery: Yes (TONSILS) Pacemaker: No Thoracic Surgery: No Tonsillectomy: Yes (ADENOIDS) Other Surgery: Yes (LEFT WRIST GANGLION CYST) Social History Alcohol Use: No Tobacco Use: No (QUIT 2001) Substance Use: Yes (MEDICAL MARIJUANA ) Allergies-Medications (Allergen,Severity, Reaction): Coded Allergies: propoxyphene (Unverified Allergy, Mild, RASH, 08/10/17) Reported Meds & Prescriptions Reported Meds & Active Scripts Active Novolog Inj (Insulin Aspart) 100 Unit/Ml Inj 1 Units SQ ACHS SLIDING SCALE 30 Days Sliding Scale As Directed.150-199 1 Unit; 200-249 3 units; 250-299 5 Units; 300-349 7 Units; Reported Metoprolol Tartrate 50 Mg Tab 50 Mg PO BID Effient (Prasugrel) 10 Mg Tab 10 Mg PO DAILY Aspirin 81 Mg Chew 81 Mg CHEW DAILY Review of Systems Except as stated in HPI: all other systems reviewed are Neg Physical Exam Narrative GENERAL:Well appearing, no acute distress SKIN: Pale. HEAD: Atraumatic. Normocephalic. EYES: Pupils equal and round. No injection or drainage. Pale sclera. ENT: Moist mucous membranes NECK: Trachea midline. CARDIOVASCULAR: Regular rate and rhythm. No murmur appreciated. RESPIRATORY: Rales in the left lower lung base with no increase work of breathing or accessory muscle use. GASTROINTESTINAL: Abdomen soft, non-tender, nondistended. MUSCULOSKELETAL: No obvious deformities. NEUROLOGICAL: Awake and alert. No obvious cranial nerve deficits. Moving all extremities. PSYCHIATRIC: Appropriate mood and affect; insight and judgment normal. Data Data Last Documented VS Vital Signs Date Time Temp Pulse Resp B/P (MAP) Pulse Ox O2 Delivery O2 Flow Rate FiO2 08/10/17 22:03 68 197/90 (125) 92 Room Air 08/10/17 19:30 20 08/10/17 13:14 98.1 Orders Orders Electrocardiogram (08/10/17 13:40) Complete Blood Count With Diff (08/10/17 13:40) Basic Metabolic Panel (Bmp) (08/10/17 13:40) Ckmb (Isoenzyme) Profile (08/10/17 13:40) Troponin I (08/10/17 13:40) Chest, Single Ap (08/10/17 13:40) Type And Screen (08/10/17 16:20) B-Type Natriuretic Peptide (08/10/17 16:20) Furosemide Inj (Lasix Inj) (08/10/17 21:00) Bedside Glucose Q15M (08/10/17 20:52) Hypoglycemia 70 Mg/Dl Or < (08/10/17 20:52) Dextrose 50% In Toan (Vial) Inj (D50w (Vi (08/10/17 21:00) Electrocardiogram (08/10/17 21:07) Complete Blood Count With Diff (08/10/17 21:07) Basic Metabolic Panel (Bmp) (08/10/17 21:07) Prothrombin Time / Inr (Pt) (08/10/17 21:07) Act Partial Throm Time (Ptt) (08/10/17 21:07) C-Reactive Protein (Crp) (08/10/17 21:07) Iv Access Insert/Monitor (08/10/17 21:07) Ecg Monitoring (08/10/17 21:07) Oximetry (08/10/17 21:07) Knee, Complete (4vws) (08/10/17 ) Admit Order (Ed Use Only) (08/10/17 22:30) Labs Laboratory Tests Test 08/10/17 17:15 08/10/17 20:14 08/10/17 21:39 B-Type Natriuretic Peptide 1809 PG/ML White Blood Count 4.7 TH/MM3 4.1 TH/MM3 Red Blood Count 2.71 MIL/MM3 2.61 MIL/MM3 Hemoglobin 8.1 GM/DL 7.8 GM/DL Hematocrit 24.0 % 23.0 % Mean Corpuscular Volume 88.6 FL 88.1 FL Mean Corpuscular Hemoglobin 30.0 PG 30.0 PG Mean Corpuscular Hemoglobin Concent 33.9 % 34.1 % Red Cell Distribution Width 17.9 % 17.7 % Platelet Count 267 TH/MM3 228 TH/MM3 Mean Platelet Volume 7.5 FL 7.7 FL Neutrophils (%) (Auto) 53.0 % 60.1 % Lymphocytes (%) (Auto) 33.7 % 27.3 % Monocytes (%) (Auto) 9.0 % 7.8 % Eosinophils (%) (Auto) 3.1 % 3.5 % Basophils (%) (Auto) 1.2 % 1.3 % Neutrophils # (Auto) 2.5 TH/MM3 2.4 TH/MM3 Lymphocytes # (Auto) 1.6 TH/MM3 1.1 TH/MM3 Monocytes # (Auto) 0.4 TH/MM3 0.3 TH/MM3 Eosinophils # (Auto) 0.1 TH/MM3 0.1 TH/MM3 Basophils # (Auto) 0.1 TH/MM3 0.1 TH/MM3 CBC Comment DIFF FINAL DIFF FINAL Differential Comment Blood Urea Nitrogen 28 MG/DL 28 MG/DL Creatinine 1.49 MG/DL 1.55 MG/DL Random Glucose 42 MG/DL 92 MG/DL Calcium Level 8.5 MG/DL 8.3 MG/DL Sodium Level 145 MEQ/L 146 MEQ/L Potassium Level 3.6 MEQ/L 3.8 MEQ/L Chloride Level 115 MEQ/L 116 MEQ/L Carbon Dioxide Level 21.3 MEQ/L 21.7 MEQ/L Anion Gap 9 MEQ/L 8 MEQ/L Estimat Glomerular Filtration Rate 35 ML/MIN 34 ML/MIN Total Creatine Kinase 70 U/L Troponin I 0.03 NG/ML Prothrombin Time 9.9 SEC Prothromb Time International Ratio 0.9 RATIO Activated Partial Thromboplast Time 24.7 SEC C-Reactive Protein 0.90 MG/DL MDM Medical Decision Making Medical Screen Exam Complete: Yes Emergency Medical Condition: Yes Interpretation(s) labs pending Differential Diagnosis Pleural effusion, symptomatic anemia, pneumonia, congestive heart failure Narrative Course This is a 66-year-old female who presents to the emergency department with increasing shortness of breath and weakness. She has a history of recurrent left-sided pleural effusion. She was hypertensive on arrival and appears frail. Labs are obtained and chest x-ray were obtained. I suspect patient will require admission. Case was signed out to Dr. Zheng. Scripts Isosorbide Mononitrate ER (Isosorbide Mononitrate ER) 30 Mg Abbey 30 MG PO DAILY@07 for Blood Pressure Management, #30 TAB Prov: Lay Camacho MD 08/13/17 Furosemide (Lasix) 40 Mg Tab 40 MG PO DAILY for edema , #30 TAB 0 Refills Prov: Lay Camacho MD 08/13/17 Amlodipine (Norvasc) 5 Mg Tab 5 MG PO BID for Blood Pressure Management, #60 TAB Prov: Lay Camacho MD 08/13/17 Insulin Detemir Inj (Levemir Inj) 1,000 unit/ 10 ML Vial 5 UNITS SQ Q12HR for Blood Sugar Management for 30 Days, #60 INJECTION Do not mix with any other Insulin. Prov: Lay Camacho MD 08/13/17 Ivone Valencia MD Aug 10, 2017 19:00
[2017-08-10 19:30] VITALS: BP 213/91; PULSE 55; RESP 20; O2SAT 94
--- NOTE | 2017-08-10 19:34 | PD ---
Physical Exam Narrative General: The patient is a well-developed well-nourished female in no acute distress. The patient is pale appearing on arrival. Head and Neck exam: Head is normocephalic atraumatic. Eyes: EOMI, pupils are equal round and reactive to light. Nose: Midline septum with pink mucous membranes Mouth: Dentition unremarkable. Moist mucus membranes. Posterior oropharynx is not erythematous. No tonsillar hypertrophy. Uvula midline. Airway patent. Neck: No palpable lymphadenopathy. No nuchal rigidity. No thyromegaly. Cardiovascular: Regular rate and rhythm without murmurs, gallops, or rubs. Lungs: Clear to auscultation bilaterally. No wheezes, rhonchi, or rales. Abdomen: Soft, without tenderness to palpation in all 4 quadrants of the abdomen. No guarding, rebound, or rigidity. Normal bowel sounds are audible. No tenderness on palpation of McBurney's point. Extremities: No clubbing or cyanosis. The patient has 1+ nonpitting edema bilateral lower extremities. 2+ pulses in all 4 extremities. No calf tenderness on palpation. The patient has a dressing in place along the right tib-fib area that she reports is related to a wound from a dog bite that is managed by wound care. She acquired a dog bite 6 months ago and the wound is healing and improving with time. Neurologic Exam: Grossly nonfocal. Data Data Last Documented VS Vital Signs Date Time Temp Pulse Resp B/P (MAP) Pulse Ox O2 Delivery O2 Flow Rate FiO2 08/10/17 22:03 68 197/90 (125) 92 Room Air 08/10/17 19:30 20 08/10/17 13:14 98.1 Orders Orders Electrocardiogram (08/10/17 13:40) Complete Blood Count With Diff (08/10/17 13:40) Basic Metabolic Panel (Bmp) (08/10/17 13:40) Ckmb (Isoenzyme) Profile (08/10/17 13:40) Troponin I (08/10/17 13:40) Chest, Single Ap (08/10/17 13:40) Type And Screen (08/10/17 16:20) B-Type Natriuretic Peptide (08/10/17 16:20) Furosemide Inj (Lasix Inj) (08/10/17 21:00) Bedside Glucose Q15M (08/10/17 20:52) Hypoglycemia 70 Mg/Dl Or < (08/10/17 20:52) Dextrose 50% In Toan (Vial) Inj (D50w (Vi (08/10/17 21:00) Electrocardiogram (08/10/17 21:07) Complete Blood Count With Diff (08/10/17 21:07) Basic Metabolic Panel (Bmp) (08/10/17 21:07) Prothrombin Time / Inr (Pt) (08/10/17 21:07) Act Partial Throm Time (Ptt) (08/10/17 21:07) C-Reactive Protein (Crp) (08/10/17 21:07) Iv Access Insert/Monitor (08/10/17 21:07) Ecg Monitoring (08/10/17 21:07) Oximetry (08/10/17 21:07) Knee, Complete (4vws) (08/10/17 ) Admit Order (Ed Use Only) (08/10/17 22:30) Labs Laboratory Tests Test 08/10/17 17:15 08/10/17 20:14 08/10/17 21:39 B-Type Natriuretic Peptide 1809 PG/ML White Blood Count 4.7 TH/MM3 4.1 TH/MM3 Red Blood Count 2.71 MIL/MM3 2.61 MIL/MM3 Hemoglobin 8.1 GM/DL 7.8 GM/DL Hematocrit 24.0 % 23.0 % Mean Corpuscular Volume 88.6 FL 88.1 FL Mean Corpuscular Hemoglobin 30.0 PG 30.0 PG Mean Corpuscular Hemoglobin Concent 33.9 % 34.1 % Red Cell Distribution Width 17.9 % 17.7 % Platelet Count 267 TH/MM3 228 TH/MM3 Mean Platelet Volume 7.5 FL 7.7 FL Neutrophils (%) (Auto) 53.0 % 60.1 % Lymphocytes (%) (Auto) 33.7 % 27.3 % Monocytes (%) (Auto) 9.0 % 7.8 % Eosinophils (%) (Auto) 3.1 % 3.5 % Basophils (%) (Auto) 1.2 % 1.3 % Neutrophils # (Auto) 2.5 TH/MM3 2.4 TH/MM3 Lymphocytes # (Auto) 1.6 TH/MM3 1.1 TH/MM3 Monocytes # (Auto) 0.4 TH/MM3 0.3 TH/MM3 Eosinophils # (Auto) 0.1 TH/MM3 0.1 TH/MM3 Basophils # (Auto) 0.1 TH/MM3 0.1 TH/MM3 CBC Comment DIFF FINAL DIFF FINAL Differential Comment Blood Urea Nitrogen 28 MG/DL 28 MG/DL Creatinine 1.49 MG/DL 1.55 MG/DL Random Glucose 42 MG/DL 92 MG/DL Calcium Level 8.5 MG/DL 8.3 MG/DL Sodium Level 145 MEQ/L 146 MEQ/L Potassium Level 3.6 MEQ/L 3.8 MEQ/L Chloride Level 115 MEQ/L 116 MEQ/L Carbon Dioxide Level 21.3 MEQ/L 21.7 MEQ/L Anion Gap 9 MEQ/L 8 MEQ/L Estimat Glomerular Filtration Rate 35 ML/MIN 34 ML/MIN Total Creatine Kinase 70 U/L Troponin I 0.03 NG/ML Prothrombin Time 9.9 SEC Prothromb Time International Ratio 0.9 RATIO Activated Partial Thromboplast Time 24.7 SEC C-Reactive Protein 0.90 MG/DL [facility] Medical Record Reviewed: Yes Supervised Visit with SORAYA: No Interpretation(s) Last Impressions Chest X-Ray 08/10/17 1340 Signed Impressions: Service Date/Time: Thursday, August 10, 2017 14:35 - CONCLUSION: 1. New consolidative opacity in the left lung base with blunting of the costophrenic angle consistent with effusion and/or infiltrate. 2. Milder blunting of the right costophrenic angle with patchy opacity in the lateral costophrenic angle region Nura Niño MD Knee X-Ray 08/10/17 0000 Signed Impressions: Service Date/Time: Thursday, August 10, 2017 21:29 - CONCLUSION: Probable tendinosis or contusion of the extensor mechanism. No fracture or subluxation of the left knee. Rafa Rocha MD Narrative Course During the course of the patients emergency department visit, the patients history, examination, and differential diagnosis were reviewed with the patient. The patient had IV access obtained and blood work sent for analysis. The patient's case was checked out to me by Dr. Hayes. Please see her complete history and physical. The patient's case was checked out to me at the conclusion of her shift. The patient is a 66-year-old female who presents with generalized weakness, shortness of breath. The patient has a prior history of recent non-STEMI, history of chronic anemia requiring blood transfusions repeatedly without a known source, and a recurrent left pleural effusion. The patient was initially provided Lasix 40 mg IV after a chest x-ray shows bibasilar infiltrates suspicious for pulmonary edema with pleural effusions. While the patient was awaiting laboratory results, the patient became tremulous and reported that she thought her blood sugar was low. The patient's blood sugar was checked and found to be 43. The patient reported feeling hungry. The patient was given orange juice, ban crackers. Her repeat blood sugar was 93. She was given a tray of food. The patients laboratory studies were reviewed and remarkable for white count 4.7 , hemoglobin 8.1, platelets 267 with 9.0 monocytes, basic metabolic profile shows a chloride of 1:15, BUN 28, creatinine 1.49, glucose 42, BK 70, troponin I 0.03, BNP is 1809, C-reactive protein 0.9. PT PTT within normal limits. The the patient will be admitted to the hospital for close monitoring of her anemia as the patient will likely need a blood transfusion if it continues to trend downward. The patient will be diuresis due to a CHF exacerbation. The patients results were discussed with the patient, including the plan of care. I explained that further testing and/ or monitoring is indicated based on the patients history, examination, and/ or laboratory findings. Therefore, I recommended admission for additional evaluation. The patient expressed understanding and was agreeable with this plan. The patient was admitted to the hospital in stable condition and sent to a [facility]. Physician Communication Physician Communication The patient's case was discussed with Dr. Garcia who did agree to that the patient for further evaluation and treatment at this time. Diagnosis Primary Impression: CHF exacerbation Qualified Codes: I50.9 - Heart failure, unspecified Additional Impression: Symptomatic anemia Admitting Information Admitting Physician Requests: it Gladys Zheng MD Aug 10, 2017 19:34
[2017-08-10 20:15] VITALS: BP 211/87; PULSE 54
[2017-08-10 20:48] LABS: AUTOMATED NEUTROPHIL # 2.5 TH/MM3 (1.8-7.7); BASOPHIL # 0.1 TH/MM3 (0-0.2); BASOPHIL % 1.2 % (0.0-2.0); EOSINOPHIL # 0.1 TH/MM3 (0-0.4); EOSINOPHIL % 3.1 % (0.0-4.0); HEMO FLAGS DIFF FINAL; LYMPH % 33.7 % (9.0-44.0); LYMPHOCYTE # 1.6 TH/MM3 (1.0-4.8); MEAN CELL VOLUME 88.6 FL (80.0-100.0); MEAN CORPUSCULAR HGB CONC 33.9 % (32.0-36.0); PLATELET COUNT 267 TH/MM3 (150-450); RED BLOOD COUNT 2.71 MIL/MM3 (4.00-5.30); RED CELL DISTRIBUTION WIDTH 17.9 % (11.6-17.2); WHITE BLOOD COUNT 4.7 TH/MM3 (4.0-11.0)
[2017-08-10] MEDS ORDERED: DEXTROSE 50% IN WATER 50 ML VIAL(D50) IV PRN ×2 (21:00→22:45)
[2017-08-10] MEDS ORDERED: FUROSEMIDE 40 MG/4 ML VIAL IV PUSH ONE (21:00)
[2017-08-10 21:07] LABS: BICARBONATE 21.3 MEQ/L (21.0-32.0); POTASSIUM 3.6 MEQ/L (3.5-5.1)
[2017-08-10 21:37] VITALS: BP 205/90; PULSE 68; O2SAT 94
--- NOTE | 2017-08-10 21:57 | RADRPT ---
EXAM DATE/TIME: 08/10/2017 21:29 [place] COMPARISON: No previous studies available for comparison. INDICATIONS : Pain in left knee anterior at patella. MEDICAL HISTORY : None. SURGICAL HISTORY : None. ENCOUNTER: Initial ACUITY: 1 day PAIN SCORE: 0/10 LOCATION: Left knee FINDINGS: There is prepatellar soft tissue swelling and edema. The distal quadriceps and patellar tendons also appear thickened. No fracture or subluxation. No significant joint effusion demonstrated. CONCLUSION: Probable tendinosis or contusion of the extensor mechanism. No fracture or subluxation of the left kn ee. Rafa Rocha MD on August 10, 2017 at 21:55 Board Certified Radiologist. This report was verified electronically.
[2017-08-10 22:02] LABS: AUTOMATED NEUTROPHIL # 2.4 TH/MM3 (1.8-7.7); BASOPHIL # 0.1 TH/MM3 (0-0.2); BASOPHIL % 1.3 % (0.0-2.0); EOSINOPHIL # 0.1 TH/MM3 (0-0.4); EOSINOPHIL % 3.5 % (0.0-4.0); HEMO FLAGS DIFF FINAL; LYMPH % 27.3 % (9.0-44.0); LYMPHOCYTE # 1.1 TH/MM3 (1.0-4.8); MEAN CELL VOLUME 88.1 FL (80.0-100.0); MEAN CORPUSCULAR HGB CONC 34.1 % (32.0-36.0); MONO % 7.8 % (0.0-8.0); NEUT % 60.1 % (16.0-70.0); PLATELET COUNT 228 TH/MM3 (150-450); RED BLOOD COUNT 2.61 MIL/MM3 (4.00-5.30); RED CELL DISTRIBUTION WIDTH 17.7 % (11.6-17.2); WHITE BLOOD COUNT 4.1 TH/MM3 (4.0-11.0)
[2017-08-10 22:03] VITALS: BP 197/90; PULSE 68; O2SAT 92
[2017-08-10 22:12] LABS: BICARBONATE 21.7 MEQ/L (21.0-32.0); POTASSIUM 3.8 MEQ/L (3.5-5.1)
[2017-08-10 22:18] LABS: APTT (PATIENT) 24.7 SEC (24.3-30.1); INTERNATIONAL NORMALIZED RATIO 0.9 RATIO; PROTHROMBIN TIME - PATIENT 9.9 SEC (9.8-11.6)
[2017-08-10 22:40] VITALS: BP 196/88; PULSE 70; O2SAT 95
[2017-08-10] MEDS ORDERED: GLUCAGON 1 MG/ML VIAL IM PRN (22:45)
[2017-08-10] MEDS ORDERED: SODIUM CHLORIDE 0.9% FLUSH 10 ML FLUSH IV FLUSH PRN (22:45)
[2017-08-10] MEDS ORDERED: NALOXONE HCL 0.4 MG/ML AMP IV PRN (22:45)
[2017-08-11] VITALS (10 sets, daily range): BP systolic 140–222; BP diastolic 66–93; PULSE 61–95; RESP 18–28; TEMP 97.7; O2SAT 95–97
[2017-08-11] MEDS ORDERED: ENALAPRILAT 1.25 MG/ML VIAL IV PUSH ONE
--- NOTE | 2017-08-11 01:53 | HHI.HP ---
HPI Service [facility] Primary Care Physician NICHOLAS Claire Admission Diagnosis Chf exacerbation, anemia Diagnoses: Chief Complaint: shortness of breath Travel History International Travel<30 Days: No Contact w/Intl Traveler <30 Da: No Traveled to Known Affected Are: No History of Present Illness Written by NICHOLAS Lawson acting as scribe for [Radha] on 08/11/17 at 01: 52. 66 y/o female with a history of C Diff, Chronic right lower extremity ulcer secondary to a dog bite, Diastolic CHF, pleural effusion, DM, CAD, CKD, COPD, HTN, GERD, and Bone marrow suppression presented to the ED with complaints of SOB since Wednesday and increased leg swelling. She states she has been having increased shortness of breath since Wednesday and noticed increased leg swelling. She denies any chest pain, cough, sputum production, fever or chills. Patient was admitted in Jun 2017 for NSTEMI with cardiac stent placement and Lasix was discontinued at this time due to increased renal insufficiency. She does have a healing ulcer to her right lower del cid, that she follows with Dr. Read in the wound center. [facility] Program Director is Dr. Reddy Review of Systems Except as stated in HPI: all other systems reviewed are Neg Past Family Social History Past Medical History History of C. difficile status post treatment Chronic right lower extremity ulcer secondary to a dog bite Diabetes mellitus Coronary artery disease COPD Hypertension GERD Bone marrow suppression Diastolic CHF, 06/2017 EF 55-60% CKD, stage III Past Surgical History Appendectomy Coronary stent placement Hysterectomy Tonsillectomy and adenoidectomy Left wrist ganglion cyst removal Back surgery with nerve decompression Reported Medications Reported Meds & Active Scripts Active Levemir Inj (Insulin Detemir) 1,000 unit/ 10 ML Vial 8 Units SQ Q12HR 30 Days Do not mix with any other Insulin. 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, 06/17/17 Active Ordered Medications Current Medications Medications (Trade) Dose Ordered Sig/Marie Route Start Time Stop Time Status Last Admin (NS Flush) 2 ml UNSCH PRN IV FLUSH 08/10/17 22:45 (NS Flush) 2 ml BID IV FLUSH 08/11/17 09:00 (Narcan Inj) 0.4 mg UNSCH PRN IV 08/10/17 22:45 (Lasix Inj) 40 mg BID@,18 IV PUSH 08/11/17 09:00 (D50w (Vial) Inj) 50 ml UNSCH PRN IV 08/10/17 22:45 (Glucagon Inj) 1 mg STAT PRN IM 08/10/17 22:45 Family History Mom: MS Dad: Colorectal cancer Social History Tobacco use: Quit 15 years ago, prior she smoked for 40 years Alcohol use: Denies Illicit drug use: Denies Physical Exam Vital Signs Vital Signs Date Time Temp Pulse Resp B/P (MAP) Pulse Ox O2 Delivery O2 Flow Rate FiO2 08/11/17 01:14 65 186/84 (118) 97 Room Air 08/10/17 22:40 70 196/88 (124) 95 Room Air 08/10/17 22:03 68 197/90 (125) 92 Room Air 08/10/17 21:37 68 205/90 (128) 94 Room Air 08/10/17 21:27 Room Air 08/10/17 20:15 54 211/87 (128) 08/10/17 19:30 55 20 213/91 (131) 94 Room Air 08/10/17 13:14 98.1 65 17 225/95 (138) 96 Physical Exam GENERAL: This is a well-nourished, well-developed patient, in no apparent distress. SKIN: Right lower del cid chronic healing ulcer HEAD: Atraumatic. Normocephalic. EYES: Pupils equal round and reactive. Extraocular motions intact. ENT: Nose without bleeding, purulent drainage or septal hematoma. Airway patent. NECK: Trachea midline. No JVD. CARDIOVASCULAR: Regular rate and rhythm without murmurs, gallops, or rubs. RESPIRATORY: Clear to auscultation. Breath sounds equal bilaterally. No wheezes , rales, or rhonchi. GASTROINTESTINAL: Abdomen soft, non-tender, nondistended. No hepato-splenomegaly , or palpable masses. No guarding. MUSCULOSKELETAL: Bilateral extremities +2 edema. No joint tenderness, effusion, or edema noted. No calf tenderness. Right groin tenderness, no edema. NEUROLOGICAL: Awake and alert. Motor and sensory grossly within normal limits. Normal speech. Laboratory Laboratory Tests Test 08/10/17 17:15 08/10/17 20:14 08/10/17 21:39 B-Type Natriuretic Peptide 1809 White Blood Count 4.7 4.1 Red Blood Count 2.71 2.61 Hemoglobin 8.1 7.8 Hematocrit 24.0 23.0 Mean Corpuscular Volume 88.6 88.1 Mean Corpuscular Hemoglobin 30.0 30.0 Mean Corpuscular Hemoglobin Concent 33.9 34.1 Red Cell Distribution Width 17.9 17.7 Platelet Count 267 228 Mean Platelet Volume 7.5 7.7 Neutrophils (%) (Auto) 53.0 60.1 Lymphocytes (%) (Auto) 33.7 27.3 Monocytes (%) (Auto) 9.0 7.8 Eosinophils (%) (Auto) 3.1 3.5 Basophils (%) (Auto) 1.2 1.3 Neutrophils # (Auto) 2.5 2.4 Lymphocytes # (Auto) 1.6 1.1 Monocytes # (Auto) 0.4 0.3 Eosinophils # (Auto) 0.1 0.1 Basophils # (Auto) 0.1 0.1 CBC Comment DIFF FINAL DIFF FINAL Differential Comment Blood Urea Nitrogen 28 28 Creatinine 1.49 1.55 Random Glucose 42 92 Calcium Level 8.5 8.3 Sodium Level 145 146 Potassium Level 3.6 3.8 Chloride Level 115 116 Carbon Dioxide Level 21.3 21.7 Anion Gap 9 8 Estimat Glomerular Filtration Rate 35 34 Total Creatine Kinase 70 Troponin I 0.03 Prothrombin Time 9.9 Prothromb Time International Ratio 0.9 Activated Partial Thromboplast Time 24.7 C-Reactive Protein 0.90 Result Diagram: 08/10/17213808/10/172138 Imaging Last Impressions Chest X-Ray 08/10/17 1340 Signed Impressions: Service Date/Time: Thursday, August 10, 2017 14:35 - CONCLUSION: 1. New consolidative opacity in the left lung base with blunting of the costophrenic angle consistent with effusion and/or infiltrate. 2. Milder blunting of the right costophrenic angle with patchy opacity in the lateral costophrenic angle region Nura Niño MD Knee X-Ray 08/10/17 0000 Signed Impressions: Service Date/Time: Thursday, August 10, 2017 21:29 - CONCLUSION: Probable tendinosis or contusion of the extensor mechanism. No fracture or subluxation of the left knee. MD Kate Orellana VTE Risk Assessment Caprini VTE Risk Assessment: Mod/High Risk (score >= 2) VTE [facility] Contraindication: LE injury/wound Caprini Risk Assessment Model Point Value = 1 Point Value = 2 Point Value = 3 Point Value = 5 Age 41-60 Minor surgery BMI > 25 kg/m2 Swollen legs Varicose veins or History of unexplained or recurrent spontaneous Oral contraceptives or hormone replacement Sepsis (< 1 month) Serious lung disease, including pneumonia (< 1 month) Abnormal pulmonary function Acute myocardial infarction Congestive heart failure (< 1 month) History of inflammatory bowel disease Medical patient at bed rest Age 61-74 Arthroscopic surgery Major open surgery (> 45 min) Laparoscopic surgery (> 45 min) Malignancy Confined to bed (> 72 hours) Immobilizing plaster cast Central venous access Age >= 75 History of VTE Family history of VTE Factor V Leiden Prothrombin [id number] Lupus anticoagulant Anticardiolipin antibodies Elevated serum homocysteine Heparin-induced thrombocytopenia Other congenital or acquired thrombophilia Stroke (< 1 month) Elective arthroplasty Hip, pelvis, or leg fracture Acute spinal cord injury (< 1 month) Prophylaxis Regimen Total Risk Factor Score Risk Level Prophylaxis Regimen 0-1 Low Early ambulation 2 Moderate Order ONE of the following: *Sequential Compression Device (SCD) *Heparin 5000 units SQ BID 3-4 Higher Order ONE of the following medications: *Heparin 5000 units SQ TID *Enoxaparin/Lovenox 40 mg SQ daily (WT < 150 kg, CrCl > 30 mL/min) *Enoxaparin/Lovenox 30 mg SQ daily (WT < 150 kg, CrCl > 10-29 mL/min) *Enoxaparin/Lovenox 30 mg SQ BID (WT < 150 kg, CrCl > 30 mL/min) AND/OR *Sequential Compression Device (SCD) 5 or more Highest Order ONE of the following medications: *Heparin 5000 units SQ TID (Preferred with Epidurals) *Enoxaparin/Lovenox 40 mg SQ daily (WT < 150 kg, CrCl > 30 mL/min) *Enoxaparin/Lovenox 30 mg SQ daily (WT < 150 kg, CrCl > 10-29 mL/min) *Enoxaparin/Lovenox 30 mg SQ BID (WT < 150 kg, CrCl > 30 mL/min) AND *Sequential Compression Device (SCD) Assessment and Plan Problem List: (1) CHF exacerbation ICD Code: I50.9 - Heart failure, unspecified Status: Acute (2) Hypoglycemia ICD Code: E16.2 - Hypoglycemia, unspecified Status: Acute (3) HTN (hypertension) ICD Code: I10 - Essential (primary) hypertension Status: Chronic (4) CKD (chronic kidney disease) stage 3, GFR 30-59 ml/min ICD Code: N18.3 - Chronic kidney disease, stage 3 (moderate) Status: Chronic Assessment and Plan 66 y/o female with a history of C Diff, Chronic right lower extremity ulcer secondary to a dog bite, Diastolic CHF, pleural effusion, DM, CAD, CKD, COPD, HTN, GERD, and Bone marrow suppression Symptomatic CHF exacerbation, BNP 1809- with dyspnea on exertion, peripheral edema Chest x-ray reviewed and shows new consolidative opacity in the left lung base with blunting, maybe consistent with effusion or infiltrate. -Lasix IV BID -Consult cardiology for recommendations Chronic right leg ulcer -Consult Dr. Read, patient is scheduled to see him in the wound center tomorrow -Dressing per wound physician Right groin pain, recent cardiac cath -US ordered to rule out pseudoaneurysm Hypoglycemia, history of DM, glucose 42 on arrival -Hold home insulin for now -ACCU checks AC/HS Anemia, chronic, hgb 7.8, baseline 8-10 -Trend H&H, transfuse if needed. CKD, chronic, creatine at baseline: cont to monitor, avoid nephrotoxins HTN, chronic, currently unstable: Reordered home medication metoprolol, prns as needed DVT prophylaxis: Heparin This note was transcribed by doreen [Jane Monaco]. I, Dr. Ronaldo Garcia personally performed the history, physical exam, and medical decision making; and confirmed the accuracy of the information in the transcribed note. Authenticated by Dr. Ronaldo Garcia on 08/11/17 at 01:52. Discussed Condition With Patient and RN Physician Certification 2 Midnight Certification Type: Admission for Inpatient Services Order for Inpatient Services The services are ordered in accordance with Medicare regulations or non- Medicare payer requirements, as applicable. In the case of services not specified as inpatient-only, they are appropriately provided as inpatient services in accordance with the 2-midnight benchmark. Estimated LOS (days): 2 days is the estimated time the patient will need to remain in the hospital, assuming treatment plan goals are met and no additional complications. Post-Hospital Plan: Home Problem Qualifiers (1) CHF exacerbation: Qualified Codes: I50.9 - Heart failure, unspecified Jane Monaco Aug 11, 2017 01:53 Ronaldo Garcia MD Aug 11, 2017 12:02
[2017-08-11] MEDS ORDERED: METOPROLOL TARTRATE 50 MG TAB PO ONE (03:15)
[2017-08-11 04:23] LABS: AUTOMATED NEUTROPHIL # 2.8 TH/MM3 (1.8-7.7); BASOPHIL % 1.1 % (0.0-2.0); EOSINOPHIL # 0.1 TH/MM3 (0-0.4); EOSINOPHIL % 1.2 % (0.0-4.0); HEMATOCRIT 25.3 % (35.0-46.0); HEMO FLAGS DIFF FINAL; LYMPH % 26.8 % (9.0-44.0); LYMPHOCYTE # 1.1 TH/MM3 (1.0-4.8); MEAN CELL VOLUME 88.7 FL (80.0-100.0); MEAN CORPUSCULAR HEMOGLOBIN 29.4 PG (27.0-34.0); MEAN CORPUSCULAR HGB CONC 33.1 % (32.0-36.0); MONO % 5.9 % (0.0-8.0); PLATELET COUNT 285 TH/MM3 (150-450); RED BLOOD COUNT 2.85 MIL/MM3 (4.00-5.30); RED CELL DISTRIBUTION WIDTH 18.2 % (11.6-17.2); WHITE BLOOD COUNT 4.3 TH/MM3 (4.0-11.0)
[2017-08-11 04:30] LABS: BICARBONATE 24.6 MEQ/L (21.0-32.0); POTASSIUM 4.4 MEQ/L (3.5-5.1)
[2017-08-11] MEDS: HEPARIN SODIUM - SQ 10,000 UNITS/ML VIAL SQ SCH ×3 (06:00→22:00)
[2017-08-11] MEDS: hydrALAZINE HCL 20 MG/ML VIAL IV PUSH PRN ×3 (06:32→16:05)
[2017-08-11] MEDS ORDERED: amLODIPine BESYLATE 5 MG TAB PO ONE (08:45)
--- NOTE | 2017-08-11 08:51 | RADRPT ---
EXAM DATE/TIME: 08/11/2017 08:10 [facility] COMPARISON: No previous studies available for comparison. INDICATIONS : Right groin pain 3 weeks post cardiac catherization. MEDICAL HISTORY : Myocardial infarction. Congestive heart failure. Gastroesophageal reflux disease. Neuropathy. Retinop athy. Migraines. Hypertension. CAD. Anticogalunt therapy. A.FIB. COPD. Asthma. Hiatal hernia. Renal d isease. Osteoporosis. Arthritis. Diabetes. Anxiety. Anemia. Blood transfusion. MRSA. C.diff. VRE. SURGICAL HISTORY : Tonsillectomy. Coronary artery stent. Hysterectomy. Adenoidectomy. Laminectomy. Appendectomy. Cesarea n section. Left knee surgery. Finger surgery. Left wrist ganglion cyst removal. ENCOUNTER: Initial ACUITY: 1 day PAIN SCORE: 0/10 LOCATION: Right groin. AREA EVALUATED: Right groin. FINDINGS: There is no evidence for pseudoaneurysm. There is good arterial and venous flow across the area of i nterest. CONCLUSION: Negative for pseudoaneurysm. Meek Trimble MD FACR on August 11, 2017 at 8:49 Board Certified Radiologist. This report was verified electronically.
[2017-08-11] MEDS ORDERED: INSULIN DETEMIR 100 UNITS/ML VIAL SQ SCH (09:00)
[2017-08-11 09:02] LABS: HEMATOCRIT 25.1 % (35.0-46.0); REVIEW FLAG FINAL
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
[2017-08-11] MEDS: SODIUM CHLORIDE 0.9% FLUSH 10 ML FLUSH IV FLUSH SCH ×2 (09:53→21:00)
[2017-08-11] MEDS: ASPIRIN 81 MG CHEW TAB CHEW SCH (09:53)
[2017-08-11] MEDS: FUROSEMIDE 40 MG/4 ML VIAL IV PUSH SCH ×2 (09:53→16:04)
[2017-08-11] MEDS: METOPROLOL TARTRATE 50 MG TAB PO SCH ×2 (09:53→21:00)
[2017-08-11] MEDS: PRASUGREL 10 MG TAB PO SCH (10:03)
--- NOTE | 2017-08-11 11:25 | ECHRPT ---
Indication: CONCLUSIONS The left ventricular systolic function is normal with an estimated ejection fraction in the range of 60-65%. Normal left ventricular size. Mild concentric left ventricular hypertrophy. No regional wall motion abnormalities are present. Structurally normal mitral valve. Trace mitral regurgitation. BP: 219 / 93 HR: 135 Rhythm: Sinus MEASUREMENTS (Male / Female) Normal Values Technical Quality:Good 2D ECHO LV Ejection Fraction MOD BP 63.1 % >= 55 % LV Cardiac Index MOD BP 2728.8 cm/minm LV Ejection Fraction MOD 4C 64.4 % LV Cardiac Index MOD 4C 3128.1 cm/minm LV Ejection Fraction 4C AL 65.3 % LV Cardiac Index 4C AL 3363.6 cm/minm LV Ejection Fraction MOD 2C 68.5 % LV Cardiac Index MOD 2C 2462.5 cm/minm LV Ejection Fraction 2C AL 67.8 % LV Cardiac Index 2C AL 2460.2 cm/minm M-MODE LV Diastolic Diameter MM 5.4 cm 4.2 - 5.9 / 3.9 - 5.3 cm LV Systolic Diameter MM 3.4 cm LV Ejection Fraction MM Teich 65.7 % LV Cardiac Index MM Teich 6180.4 cm/minm IVS Diastolic Thickness MM 1.5 cm 0.6 - 1.0 / 0.6 - 0.9 cm LVPW Diastolic Thickness MM 1.5 cm 0.6 - 1.0 / 0.6 - 0.9 cm LV Relative Wall Thickness MM 0.5 0.24 - 0.42 / 0.22 - 0.42 LV Mass Index MM 173.2 g/m 49 - 115 / 43 - 95 g/m FINDINGS LEFT VENTRICLE The left ventricular systolic function is normal with an estimated ejection fraction in the range of 60-65%. Normal left ventricular size. Mild concentric left ventricular hypertrophy. No regional wall motion abnormalities are present. RIGHT VENTRICLE Normal right ventricular size and systolic function. LEFT ATRIUM The left atrial size is normal. RIGHT ATRIUM The right atrial size is normal. ATRIAL SEPTUM Normal atrial septal thickness without atrial level shunting by limited color doppler interrogation. AORTA The aortic root and proximal ascending aorta are normal in size on limited imaging. MITRAL VALVE Structurally normal mitral valve. Trace mitral regurgitation. AORTIC VALVE Trileaflet aortic valve. No aortic valve stenosis or regurgitation. TRICUSPID VALVE Structurally normal tricuspid valve. No tricuspid valve stenosis or regurgitation. PULMONARY VALVE The pulmonary valve is not well visualized. VESSELS The inferior vena cava is normal in size. PERICARDIUM No pericardial effusion. Fuad Shaikh MD (Electronically Signed) Final Date:11 August 2017 11:25
--- NOTE | 2017-08-11 13:16 | PD.POD.CON ---
Patient Intake Chief Complaint Nonhealing wound of the right leg Consult Requested by Dr. Camacho Reason for Consult Evaluation and treatment of right leg ulcers Primary Care Physician NICHOLAS Claire History of Present Illness Patient is a 66-year-old female with COPD and loss of electricity and had trouble producing oxygen at home. She began to swell and have breathing problems. She presented to the emergency room and was admitted. I have been following the patient in the wound center for a nonhealing wound of the right leg which started as a dog bite and is now a venous stasis ulceration. The ulceration has greatly improved. 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, 06/17/17 Preferred Language to Discuss: Ken[place] Barriers to Learning: None Teaching Method: Discussion Vital Signs Date Time Temp Pulse Resp B/P (MAP) Pulse Ox O2 Delivery O2 Flow Rate FiO2 08/11/17 12:03 71 18 157/68 (97) 97 Nasal Cannula 2.00 08/11/17 07:46 95 28 219/93 (135) 95 Room Air 08/11/17 07:31 Room Air 08/11/17 06:30 61 22 204/91 (128) 96 Room Air 08/11/17 04:54 63 18 222/90 (134) 96 Room Air 08/11/17 01:57 200/86 (124) 08/11/17 01:14 65 186/84 (118) 97 Room Air 08/10/17 22:40 70 196/88 (124) 95 Room Air 08/10/17 22:03 68 197/90 (125) 92 Room Air 08/10/17 21:37 68 205/90 (128) 94 Room Air 08/10/17 21:27 Room Air 08/10/17 20:15 54 211/87 (128) 08/10/17 19:30 55 20 213/91 (131) 94 Room Air 08/10/17 13:14 98.1 65 17 225/95 (138) 96 Pain scale used: 0-10 numeric scale Pain score: 0 Medications Current Medications Furosemide (Lasix Inj) 40 mg ONCE ONCE IV PUSH Last administered on 08/10/17 21:25; Start 08/10/17 at 21:00; Stop 08/10/17 at 21:01; Status DC Dextrose (D50w (Vial) Inj) 50 ml UNSCH PRN IV HYPOGLYCEMIA-SEE COMMENTS; Start 08/10/17 at 21:00; Stop 08/10/17 at 22:41; Status DC Sodium Chloride (NS Flush) 2 ml UNSCH PRN IV FLUSH FLUSH AFTER USING IV ACCESS ; Start 08/10/17 at 22:45 Sodium Chloride (NS Flush) 2 ml BID IV FLUSH Last administered on 08/11/17 09: 53; Start 08/11/17 at 09:00 Naloxone HCl (Narcan Inj) 0.4 mg UNSCH PRN IV SEE LABEL COMMENTS; Start at 22:45 Furosemide (Lasix Inj) 40 mg BID@09,18 IV PUSH Last administered on 08/11/17 09:53; Start 08/11/17 at 09:00 Dextrose (D50w (Vial) Inj) 50 ml UNSCH PRN IV HYPOGLYCEMIA-SEE COMMENTS; Start 08/10/17 at 22:45 Glucagon (Glucagon Inj) 1 mg STAT PRN IM HYPOGLYCEMIA-SEE COMMENTS; Start 08/10 at 22:45 Enalaprilat (Vasotec Inj) 1.25 mg ONCE ONCE IV PUSH Last administered on 00:06; Start 08/11/17 at 00:00; Stop 08/11/17 at 00:01; Status DC Metoprolol Tartrate (Lopressor) 50 mg ONCE ONCE PO Last administered on 03:21; Start 08/11/17 at 03:15; Stop 08/11/17 at 03:16; Status DC Aspirin (Aspirin Chew) 81 mg DAILY CHEW Last administered on 08/11/17 09:53; Start 08/11/17 at 09:00 Insulin Detemir (Levemir Inj) 8 units Q12HR SQ ; Start 08/11/17 at 09:00; Status UNV Metoprolol Tartrate (Lopressor) 50 mg BID PO Last administered on 08/11/17 09: 53; Start 08/11/17 at 09:00 Prasugrel (Effient) 10 mg DAILY PO Last administered on 08/11/17 10:03; Start 08/11/17 at 09:00 Heparin Sodium (Porcine) (Heparin Inj) 5,000 units Q8HR SQ ; Start 08/11/17 at 06:00 Hydralazine HCl (Apresoline Inj) 10 mg Q30M PRN IV PUSH bp>160/90 Last administered on 08/11/17 08:02; Start 08/11/17 at 06:15 Amlodipine Besylate (Norvasc) 5 mg ONCE ONCE PO Last administered on 09:52; Start 08/11/17 at 08:45; Stop 08/11/17 at 08:52; Status DC Amlodipine Besylate (Norvasc) 5 mg BID PO ; Start 08/11/17 at 21:00 Isosorbide Mononitrate (Imdur) 30 mg DAILY@07 PO ; Start 08/12/17 at 07:00 Past, Family & Social History Past Medical History HEENT: REPORTS HX OF: Recurrent sinusitis Endocrine: REPORTS HX OF: Diabetes mellitus Respiratory: REPORTS HX OF: Allergies/hay fever, Asthma, COPD Cardiovascular: REPORTS HX OF: Atrial fibrillation, Heart valve disease, Hypertension Genitourinary: REPORTS HX OF: Kidney disease, Past UTI Age at Menarche: 13 Age at Menopause: 45 History: Live Births: 2 Musculoskeletal: REPORTS HX OF: Osteoporosis Psychiatric: REPORTS HX OF: Anxiety Disabilities: REPORTS HX OF: Hearing deficit, Vision deficit Past Surgical History HEENT: REPORTS HX OF: Tonsillectomy (1972) Cardiovascular: REPORTS HX OF: Angioplasty (08/2015), Coronary stent (08/2015) Gynecologic: REPORTS HX OF: delivery (1983), Hysterectomy (1993) Neurologic: REPORTS HX OF: Spinal surgery (L-1979 never decompression) Breast: DENIES HX OF: Mastectomy, bilateral, Mastectomy, left, Mastectomy, right Family Medical History FH: colon cancer G8 FATHER, , Age:40 FH: muscular dystrophy G8 MOTHER Substance Use Substance Use: Denies use Review of Systems Cardiovascular: COMPLAINS OF: Swelling legs / ankles Respiratory: COMPLAINS OF: Difficulty breathing Genitourinary: COMPLAINS OF: Renal disease Exam-Podiatry Constitutional General appearance: comfortable Nutritional status: overweight Orientation: alert and oriented x3 Dermatological Exam Skin Temp - Right: Within Normal Limits Skin Texture - Right: Within Normal Limits Skin Elasticity - Right: Within Normal Limits Skin Tugor - Right: Within Normal Limits Hair Growth - Right: Within Normal Limits Pigmentation - Right: Within Normal Limits Skin Temp - Left: Within Normal Limits Skin Texture - Left: Within Normal Limits Skin Elasticity - Left: Within Normal Limits Skin Tugor - Left: Within Normal Limits Hair Growth - Left: Within Normal Limits Pigmentation - Left: Within Normal Limits Ulcers: Location/Measurements Ulceration of the right leg now measures approximately 1 cm x 1.5 cm. There is no purulence or other signs of infection. Wound is healing nicely. Vascular/Lymphatic Exam R Dorsails Pedis: Palpable L Dorsails Pedis: Palpable R Posterior Tibial: Palpable L Posterior Tibial: Palpable Neurologic Exam Details No neurological deficits seen Extremities Edema: Left lower extremity: 2+, pitting, ankle, leg Right lower extremity: 2+, pitting, ankle, leg Wound Assessment Wound Information - Wound One Wound Location: Right anterior leg Lab and Radiology Results Laboratory Laboratory Tests Test 08/10/17 20:14 08/10/17 21:39 08/11/17 03:43 08/11/17 08:10 White Blood Count 4.7 TH/MM3 4.1 TH/MM3 4.3 TH/MM3 Red Blood Count 2.71 MIL/MM3 2.61 MIL/MM3 2.85 MIL/MM3 Hemoglobin 8.1 GM/DL 7.8 GM/DL 8.4 GM/DL 8.7 GM/DL Hematocrit 24.0 % 23.0 % 25.3 % 25.1 % Mean Corpuscular Volume 88.6 FL 88.1 FL 88.7 FL Mean Corpuscular Hemoglobin 30.0 PG 30.0 PG 29.4 PG Mean Corpuscular Hemoglobin Concent 33.9 % 34.1 % 33.1 % Red Cell Distribution Width 17.9 % 17.7 % 18.2 % Platelet Count 267 TH/MM3 228 TH/MM3 285 TH/MM3 Mean Platelet Volume 7.5 FL 7.7 FL 7.6 FL Neutrophils (%) (Auto) 53.0 % 60.1 % 65.0 % Lymphocytes (%) (Auto) 33.7 % 27.3 % 26.8 % Monocytes (%) (Auto) 9.0 % 7.8 % 5.9 % Eosinophils (%) (Auto) 3.1 % 3.5 % 1.2 % Basophils (%) (Auto) 1.2 % 1.3 % 1.1 % Neutrophils # (Auto) 2.5 TH/MM3 2.4 TH/MM3 2.8 TH/MM3 Lymphocytes # (Auto) 1.6 TH/MM3 1.1 TH/MM3 1.1 TH/MM3 Monocytes # (Auto) 0.4 TH/MM3 0.3 TH/MM3 0.3 TH/MM3 Eosinophils # (Auto) 0.1 TH/MM3 0.1 TH/MM3 0.1 TH/MM3 Basophils # (Auto) 0.1 TH/MM3 0.1 TH/MM3 0.0 TH/MM3 CBC Comment DIFF FINAL DIFF FINAL DIFF FINAL Differential Comment Laboratory Tests Test 08/10/17 17:15 08/10/17 20:14 08/10/17 21:39 08/11/17 03:43 B-Type Natriuretic Peptide 1809 PG/ML Blood Urea Nitrogen 28 MG/DL 28 MG/DL 29 MG/DL Creatinine 1.49 MG/DL 1.55 MG/DL 1.69 MG/DL Random Glucose 42 MG/DL 92 MG/DL 169 MG/DL Calcium Level 8.5 MG/DL 8.3 MG/DL 8.8 MG/DL Sodium Level 145 MEQ/L 146 MEQ/L 147 MEQ/L Potassium Level 3.6 MEQ/L 3.8 MEQ/L 4.4 MEQ/L Chloride Level 115 MEQ/L 116 MEQ/L 116 MEQ/L Carbon Dioxide Level 21.3 MEQ/L 21.7 MEQ/L 24.6 MEQ/L Anion Gap 9 MEQ/L 8 MEQ/L 6 MEQ/L Estimat Glomerular Filtration Rate 35 ML/MIN 34 ML/MIN 30 ML/MIN Total Creatine Kinase 70 U/L 73 U/L Troponin I 0.03 NG/ML 0.02 NG/ML C-Reactive Protein 0.90 MG/DL Test 08/11/17 08:10 Total Creatine Kinase 83 U/L Troponin I 0.02 NG/ML Radiology Last Impressions Lower Extremity Ultrasound 08/11/17 0000 Signed Impressions: Service Date/Time: Friday, August 11, 2017 08:10 - CONCLUSION: Negative for pseudoaneurysm. Meek Trimble MD FACR Chest X-Ray 08/10/17 1340 Signed Impressions: Service Date/Time: Thursday, August 10, 2017 14:35 - CONCLUSION: 1. New consolidative opacity in the left lung base with blunting of the costophrenic angle consistent with effusion and/or infiltrate. 2. Milder blunting of the right costophrenic angle with patchy opacity in the lateral costophrenic angle region Nura Niño MD Knee X-Ray 08/10/17 0000 Signed Impressions: Service Date/Time: Thursday, August 10, 2017 21:29 - CONCLUSION: Probable tendinosis or contusion of the extensor mechanism. No fracture or subluxation of the left knee. Rafa Rocha MD Assessment/Plan Problem List: (1) Venous hypertension, chronic, with ulcer Status: Chronic (2) IDDM (insulin dependent diabetes mellitus) Status: Chronic (3) COPD (chronic obstructive pulmonary disease) Status: Chronic Additional Plans & Procedures PLAN: Ordered Maxorb dressing to the leg to change every other day. I will follow her in the wound center when she is discharged. Problem Qualifiers (1) Venous hypertension, chronic, with ulcer: Qualified Codes: I87.311 - Chronic venous hypertension (idiopathic) with ulcer of right lower extremity (2) COPD (chronic obstructive pulmonary disease): Qualified Codes: J44.9 - Chronic obstructive pulmonary disease, unspecified Je Read DPM Aug 11, 2017 13:16
[2017-08-11] MEDS: amLODIPine BESYLATE 5 MG TAB PO SCH (21:00)
--- NOTE | 2017-08-11 21:06 | EKG ---
Date Performed: 08/11/2017 Time Performed: 09:36:13 PTAGE: 66 years EKG: Sinus rhythm WITH SHORT [place] INTERVAL LOW QRS VOLTAGE IN EXTREMITY LEADS BORDERLINE ECG PREVIOUS TRACING : 08/11/2017 03.39 Compared to prior tracing no significant change DOCTOR: Dunia Reddy Interpretating Date/Time 08/11/2017 21:05:17
--- NOTE | 2017-08-11 21:16 | EKG ---
Date Performed: 08/11/2017 Time Performed: 03:39:28 PTAGE: 66 years EKG: Sinus rhythm WITH SHORT [place] INTERVAL LOW QRS VOLTAGE IN EXTREMITY LEADS ANTEROSEPTAL Q WAVES ABNORMAL ECG PREVIOUS TRACING : 08/10/2017 13.59 Compared to prior tracing no significant change DOCTOR: Dunia Reddy Interpretating Date/Time 08/11/2017 21:16:00
--- NOTE | 2017-08-11 21:29 | EKG ---
Date Performed: 08/10/2017 Time Performed: 21:57:36 PTAGE: 66 years EKG: Sinus rhythm WITH SHORT [place] INTERVAL WITH OCCASIONAL VENTRICULAR PREMATURE COMPLEXES LOW QRS VOLTAGE IN EXTREMITY LEADS ANTEROSEPTAL MYOCARDIAL INFARCTION ABNORMAL ECG Compared to prior tracing no significant change DOCTOR: Dunia Reddy Interpretating Date/Time 08/11/2017 21:28:14
--- NOTE | 2017-08-11 21:51 | EKG ---
Date Performed: 08/10/2017 Time Performed: 13:59:40 PTAGE: 66 years EKG: Sinus rhythm LOW QRS VOLTAGE IN EXTREMITY LEADS POSSIBLE ANTERIOR MYOCARDIAL INFARCTION BORDERLINE ECG PREVIOUS TRACING : 07/21/2017 05.15 Compared to prior tracing no significant change DOCTOR: Dunia Reddy Interpretating Date/Time 08/11/2017 21:50:43
[2017-08-11] MEDS ORDERED: GLUCAGON 1 MG/ML VIAL OTHER PRN (22:30)
[2017-08-11] MEDS ORDERED: DEXTROSE 50% IN WATER 50 ML VIAL(D50) IV PRN (22:30)
[2017-08-12] VITALS (19 sets, daily range): BP systolic 132–168; BP diastolic 62–89; PULSE 61–67; RESP 7–32; TEMP 98.1–98.6; O2SAT 91–99
[2017-08-12] MEDS: INSULIN ASPART SUPPLEMENTAL SCALE SQ SCH ×5 (00:19→21:06)
[2017-08-12] MEDS: HEPARIN SODIUM - SQ 10,000 UNITS/ML VIAL SQ SCH ×3 (06:00→20:54)
[2017-08-12 06:07] LABS: AUTOMATED NEUTROPHIL # 3.1 TH/MM3 (1.8-7.7); BASOPHIL # 0.1 TH/MM3 (0-0.2); BASOPHIL % 1.4 % (0.0-2.0); EOSINOPHIL # 0.1 TH/MM3 (0-0.4); EOSINOPHIL % 1.9 % (0.0-4.0); HEMO FLAGS DIFF FINAL; LYMPHOCYTE # 1.2 TH/MM3 (1.0-4.8); MEAN CELL VOLUME 90.4 FL (80.0-100.0); MEAN CORPUSCULAR HEMOGLOBIN 29.4 PG (27.0-34.0); MEAN CORPUSCULAR HGB CONC 32.5 % (32.0-36.0); MONO % 7.9 % (0.0-8.0); NEUT % 64.8 % (16.0-70.0); PLATELET COUNT 270 TH/MM3 (150-450); RED BLOOD COUNT 2.55 MIL/MM3 (4.00-5.30); RED CELL DISTRIBUTION WIDTH 18.6 % (11.6-17.2); WHITE BLOOD COUNT 4.8 TH/MM3 (4.0-11.0)
[2017-08-12 06:23] LABS: POTASSIUM 4.2 MEQ/L (3.5-5.1)
[2017-08-12] MEDS ORDERED: INSULIN ASPART SUPPLEMENTAL SCALE SQ SCH (08:00)
[2017-08-12] MEDS: ISOSORBIDE MONONITRATE 30 MG TAB PO SCH (08:48)
[2017-08-12] MEDS: amLODIPine BESYLATE 5 MG TAB PO SCH ×2 (08:48→20:47)
[2017-08-12] MEDS: PRASUGREL 10 MG TAB PO SCH (08:49)
[2017-08-12] MEDS: ASPIRIN 81 MG CHEW TAB CHEW SCH (08:49)
[2017-08-12] MEDS: METOPROLOL TARTRATE 50 MG TAB PO SCH ×2 (08:49→20:50)
[2017-08-12] MEDS: FUROSEMIDE 40 MG/4 ML VIAL IV PUSH SCH ×2 (08:50→17:44)
[2017-08-12] MEDS: SODIUM CHLORIDE 0.9% FLUSH 10 ML FLUSH IV FLUSH SCH ×2 (08:50→20:54)
--- NOTE | 2017-08-12 09:15 | HHI.PR ---
Subjective Remarks In bed, sattign well on 2L NC at this time. She was not on BiPAP. Less sob. No cough. LE edema improving some. Says she feels improved today and was able to get some sleep environmental services lead. No chest pain. No nausea or vomiting. Objective Vitals Vital Signs Date Time Temp Pulse Resp B/P (MAP) Pulse Ox O2 Delivery O2 Flow Rate FiO2 08/12/17 06:00 63 08/12/17 04:00 62 08/12/17 04:00 98.3 62 7 152/69 (96) 97 08/12/17 02:00 67 08/12/17 00:00 66 08/12/17 00:00 98.4 66 16 151/67 (95) 98 08/11/17 22:33 97 Nasal Cannula 1.00 08/11/17 22:19 97.7 74 24 140/66 (90) 96 08/11/17 22:00 74 08/11/17 20:00 74 08/11/17 16:18 08/11/17 12:03 71 18 157/68 (97) 97 Nasal Cannula 2.00 I/O 08/11/17 08/11/17 08/11/17 08/12/17 08/12/17 08/12/17 07:00 15:00 23:00 07:00 15:00 23:00 Intake Total 240 ml 720 ml Output Total 350 ml 700 ml Balance -110 ml 20 ml Intake Oral 240 ml 720 ml Output Urine Total 350 ml 700 ml # Voids 2 Result Diagram: 08/12/17 0510 08/12/17 0510 Imaging Last Impressions Lower Extremity Ultrasound 08/11/17 0000 Signed Impressions: Service Date/Time: Friday, August 11, 2017 08:10 - CONCLUSION: Negative for pseudoaneurysm. Meek Trimble MD FACR Chest X-Ray 08/10/17 1340 Signed Impressions: Service Date/Time: Thursday, August 10, 2017 14:35 - CONCLUSION: 1. New consolidative opacity in the left lung base with blunting of the costophrenic angle consistent with effusion and/or infiltrate. 2. Milder blunting of the right costophrenic angle with patchy opacity in the lateral costophrenic angle region Nura Niño MD Knee X-Ray 08/10/17 0000 Signed Impressions: Service Date/Time: Thursday, August 10, 2017 21:29 - CONCLUSION: Probable tendinosis or contusion of the extensor mechanism. No fracture or subluxation of the left knee. Rafa Rocha MD Objective Remarks GENERAL: This is a well-nourished, well-developed patient, in no apparent distress. SKIN: Right lower del cid chronic healing ulcer CARDIOVASCULAR: Regular rate and rhythm without murmurs, gallops, or rubs. RESPIRATORY: Clear to auscultation. Breath sounds equal bilaterally. No wheezes , rales, or rhonchi. GASTROINTESTINAL: Abdomen soft, non-tender, nondistended. No hepato-splenomegaly , or palpable masses. No guarding. MUSCULOSKELETAL: Bilateral extremities +2 edema. No joint tenderness, effusion, or edema noted. No calf tenderness. Right groin tenderness, no edema. NEUROLOGICAL: Awake and alert. Motor and sensory grossly within normal limits. Normal speech. A/P Problem List: (1) CHF exacerbation ICD Code: I50.9 - Heart failure, unspecified Status: Acute (2) Hypoglycemia ICD Code: E16.2 - Hypoglycemia, unspecified Status: Acute (3) HTN (hypertension) ICD Code: I10 - Essential (primary) hypertension Status: Chronic (4) CKD (chronic kidney disease) stage 3, GFR 30-59 ml/min ICD Code: N18.3 - Chronic kidney disease, stage 3 (moderate) Status: Chronic Assessment and Plan 66 y/o female with a history of C Diff, Chronic right lower extremity ulcer secondary to a dog bite, Diastolic CHF, pleural effusion, DM, CAD, CKD, COPD, HTN, GERD, and Bone marrow suppression Symptomatic CHF exacerbation, BNP 1809- with dyspnea on exertion, peripheral edema on admission Hypertension Chest x-ray reviewed and shows new consolidative opacity in the left lung base with blunting, maybe consistent with effusion or infiltrate. Lasix IV BID Consult cardiology, appreciate recommendations 2D echo to check LV function Added amlodipine 5 mg po bid and imdur. Monitor VS closely Hold ACEIs because abn renal function. Monitor renal function and UPO Chronic right leg ulcer Consult Dr. Read, patient is scheduled to see him in the wound center tomorrow Dressing per wound physician: Maxorb dressing to the leg to change every other day. Dr Read is her fitness floor attendant to follow up as OP as well. Right groin pain, recent cardiac cath US ordered to rule out pseudoaneurysm Hypoglycemia, history of DM, glucose 42 on arrival ACCU checks AC/HS BS in 200s restart levemir 5 U bid Anemia, chronic, hgb 7.8, baseline 8-10 Trend H&H, transfuse if needed. CKD, chronic, creatine at baseline: cont to monitor, avoid nephrotoxins HTN, chronic, currently unstable: Reordered home medication metoprolol, prns as needed DVT prophylaxis: Heparin Discussed Condition With Patient and nurse Colleen philippe, transfer to med surg floor Problem Qualifiers (1) CHF exacerbation: Qualified Codes: I50.9 - Heart failure, unspecified Lay Camacho MD Aug 12, 2017 09:15
[2017-08-12] MEDS ORDERED: hydrALAZINE HCL 10 MG TAB PO PRN (10:15)
--- NOTE | 2017-08-12 17:33 | PD.CARD.PN ---
Subjective Subjective Remarks Feels much better, denies CP or SOB today Objective Medications Active Medications Amlodipine Besylate (Norvasc) 5 mg BID PO Last administered on 08/12/17 08:48; Admin Dose 5 MG; Start 08/11/17 at 21:00 Dextrose (D50w (Vial) Inj) 50 ml UNSCH PRN IV; Start 08/11/17 at 22:30 Glucagon (Glucagon Inj) 1 mg UNSCH PRN OTHER; Start 08/11/17 at 22:30 Hydralazine HCl (Apresoline) 10 mg Q6HR PRN PO; Start 08/12/17 at 10:15 Insulin Aspart (NovoLOG SUPPLEMENTAL SCALE) 1 ACHS SLIDING SCALE SQ Last administered on 08/12/17 12:57; Admin Dose 1; Start 08/11/17 at 23:50 Insulin Aspart (NovoLOG SUPPLEMENTAL SCALE) 1 ACHS SLIDING SCALE SQ; Start at 08:00; Stop 08/12/17 at 08:00; Status DC Insulin Detemir (Levemir Inj) 5 units BID SQ; Start 08/12/17 at 21:00 Isosorbide Mononitrate (Imdur) 30 mg DAILY@07 PO Last administered on 08/12/17 08:48; Admin Dose 30 MG; Start 08/12/17 at 07:00 Vital Signs / I&O Vital Signs Date Time Temp Pulse Resp B/P (MAP) Pulse Ox O2 Delivery O2 Flow Rate FiO2 08/12/17 14:00 64 08/12/17 12:00 63 08/12/17 10:00 65 08/12/17 10:00 65 16 139/66 (90) 95 08/12/17 09:00 65 32 132/89 (103) 96 08/12/17 08:01 98.6 66 19 140/62 (88) 96 08/12/17 08:00 66 08/12/17 07:00 64 16 168/73 (104) 99 08/12/17 06:00 63 08/12/17 04:00 62 08/12/17 04:00 98.3 62 7 152/69 (96) 97 08/12/17 02:00 67 08/12/17 00:00 66 08/12/17 00:00 98.4 66 16 151/67 (95) 98 08/11/17 22:33 97 Nasal Cannula 1.00 08/11/17 22:19 97.7 74 24 140/66 (90) 96 08/11/17 22:00 74 08/11/17 20:00 74 I/O 08/11/17 08/11/17 08/11/17 08/12/17 08/12/17 08/12/17 07:00 15:00 23:00 07:00 15:00 23:00 Intake Total 240 ml 720 ml Output Total 350 ml 700 ml Balance -110 ml 20 ml Intake Oral 240 ml 720 ml Output Urine Total 350 ml 700 ml # Voids 2 Physical Exam GENERAL: In NAD SKIN: Warm and dry. HEAD: Normocephalic. EYES: No scleral icterus. No injection or drainage. NECK: Supple, trachea midline. No JVD or lymphadenopathy. CARDIOVASCULAR: Regular rate and rhythm without murmurs, gallops, or rubs. RESPIRATORY: Breath sounds equal bilaterally. No accessory muscle use. Clear. GASTROINTESTINAL: Abdomen soft, non-tender, nondistended. MUSCULOSKELETAL: No cyanosis, mild edema. Laboratory Laboratory Tests Test 08/12/17 05:10 White Blood Count 4.8 TH/MM3 Red Blood Count 2.55 MIL/MM3 Hemoglobin 7.5 GM/DL Hematocrit 23.0 % Mean Corpuscular Volume 90.4 FL Mean Corpuscular Hemoglobin 29.4 PG Mean Corpuscular Hemoglobin Concent 32.5 % Red Cell Distribution Width 18.6 % Platelet Count 270 TH/MM3 Mean Platelet Volume 8.0 FL Neutrophils (%) (Auto) 64.8 % Lymphocytes (%) (Auto) 24.0 % Monocytes (%) (Auto) 7.9 % Eosinophils (%) (Auto) 1.9 % Basophils (%) (Auto) 1.4 % Neutrophils # (Auto) 3.1 TH/MM3 Lymphocytes # (Auto) 1.2 TH/MM3 Monocytes # (Auto) 0.4 TH/MM3 Eosinophils # (Auto) 0.1 TH/MM3 Basophils # (Auto) 0.1 TH/MM3 CBC Comment DIFF FINAL Differential Comment Blood Urea Nitrogen 33 MG/DL Creatinine 1.83 MG/DL Random Glucose 305 MG/DL Calcium Level 8.4 MG/DL Sodium Level 142 MEQ/L Potassium Level 4.2 MEQ/L Chloride Level 111 MEQ/L Carbon Dioxide Level 20.0 MEQ/L Anion Gap 11 MEQ/L Estimat Glomerular Filtration Rate 28 ML/MIN Assessment and Plan Problem List: (1) CHF exacerbation ICD Codes: I50.9 - Heart failure, unspecified Status: Acute (2) CKD (chronic kidney disease) stage 3, GFR 30-59 ml/min ICD Codes: N18.3 - Chronic kidney disease, stage 3 (moderate) Status: Chronic (3) Hypoglycemia ICD Codes: E16.2 - Hypoglycemia, unspecified Status: Acute (4) COPD (chronic obstructive pulmonary disease) ICD Codes: J44.9 - Chronic obstructive pulmonary disease, unspecified Status: Chronic (5) IDDM (insulin dependent diabetes mellitus) ICD Codes: E11.9 - Type 2 diabetes mellitus without complications; 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 Echo with nl LV systolic function. Continue tx for CHF/ diastolic dysfunction.. Increase activity. Transfer to floor with tele. Problem Qualifiers (1) CHF exacerbation: Qualified Codes: I50.9 - Heart failure, unspecified (2) COPD (chronic obstructive pulmonary disease): Qualified Codes: J44.9 - Chronic obstructive pulmonary disease, unspecified Dunia Reddy MD Aug 12, 2017 17:33
[2017-08-12] MEDS: INSULIN DETEMIR 100 UNITS/ML VIAL SQ SCH (20:47)
[2017-08-13] VITALS: BP_SYST 139; BP_SYST 95; BP_DIAS 62; BP_DIAS 64; PULSE 61; RESP 22; TEMP 97.8; O2SAT 95
[2017-08-13 02:00] VITALS: PULSE 60
[2017-08-13 04:00] VITALS: BP_SYST 158; BP_SYST 95; BP_DIAS 59; BP_DIAS 67; PULSE 59; PULSE 64; RESP 20; TEMP 97.9; O2SAT 95
[2017-08-13 06:00] VITALS: PULSE 64
[2017-08-13] MEDS: HEPARIN SODIUM - SQ 10,000 UNITS/ML VIAL SQ SCH (06:00)
[2017-08-13] MEDS: ISOSORBIDE MONONITRATE 30 MG TAB PO SCH (07:21)
[2017-08-13] MEDS: INSULIN ASPART SUPPLEMENTAL SCALE SQ SCH (07:45)
[2017-08-13 08:00] VITALS: BP 169/79; PULSE 65; PULSE 68; RESP 22; TEMP 97.9; O2SAT 90
[2017-08-13] MEDS ORDERED: AMLO5 PO (08:23)
[2017-08-13] MEDS ORDERED: FURO1TAB60 PO (08:23)
[2017-08-13] MEDS ORDERED: LEVEMIR SQ (08:23)
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
--- NOTE | 2017-08-13 08:29 | HHI.FF ---
Face to Face Verification Diagnosis: (1) Hypochromic microcytic anemia (2) Retinopathy due to secondary diabetes (3) Gastritis (4) Wound dehiscence (5) CONOR (acute kidney injury) (6) HTN (hypertension) (7) COPD (chronic obstructive pulmonary disease) (8) CHF exacerbation Physical Therapy Order: Evaluate and Treat Home Health Nursing Order: Medical education Signs/symptoms of disease process Diabetic education CHF education Medication education-adverse effect Nursing assessment with vital signs I have seen patient Brinda Maynard on 08/13/17. My clinical findings support the need for the requested home health care services because: Ltd mobility - disease progression Patient has SOB I certify that my clinical findings support that this patient is homebound because: Post-op weakness Lay Camacho MD Aug 13, 2017 08:29
[2017-08-13] MEDS: INSULIN DETEMIR 100 UNITS/ML VIAL SQ SCH (09:00)
[2017-08-13] MEDS: PRASUGREL 10 MG TAB PO SCH (09:00)
[2017-08-13] MEDS: METOPROLOL TARTRATE 50 MG TAB PO SCH (09:16)
[2017-08-13] MEDS: amLODIPine BESYLATE 5 MG TAB PO SCH (09:16)
[2017-08-13] MEDS: SODIUM CHLORIDE 0.9% FLUSH 10 ML FLUSH IV FLUSH SCH (09:17)
[2017-08-13] MEDS: ASPIRIN 81 MG CHEW TAB CHEW SCH (09:17)
[2017-08-13] MEDS: FUROSEMIDE 40 MG/4 ML VIAL IV PUSH SCH (09:17)
[2017-08-13] MEDS ORDERED: ISOS30TA3 PO (09:20)
[2017-08-13 10:00] VITALS: PULSE 78
[2017-08-17] MEDS ORDERED: LISI-519 PO (13:09)
== END 2017-08-13 10:50 | disposition home health service (06) | DRG 291 ==
LOC: NEPC 13:11 → NEDA 22:32 → HIMN 08-11 15:40
PROVIDERS: ADMIT Hospitalist; ATTEND Hospitalist
DX: I13.0 Hypertensive heart and chronic kidney disease with heart failure and stage 1 through stage 4 chronic kidney disease, or unspecified chronic kidney disease (principal); I63.9 Cerebral infarction, unspecified; E87.0 Hyperosmolality and hypernatremia; I50.32 Chronic diastolic (congestive) heart failure; J44.1 Chronic obstructive pulmonary disease with (acute) exacerbation; L97.919 Non-pressure chronic ulcer of unspecified part of right lower leg with unspecified severity; N18.3 Chronic kidney disease, stage 3 (moderate); D64.9 Anemia, unspecified; E78.5 Hyperlipidemia, unspecified; I16.0 Hypertensive urgency; E11.22 Type 2 diabetes mellitus with diabetic chronic kidney disease; E11.649 Type 2 diabetes mellitus with hypoglycemia without coma; I25.10 Atherosclerotic heart disease of native coronary artery without angina pectoris; I25.2 Old myocardial infarction; Z95.5 Presence of coronary angioplasty implant and graft; I48.91 Unspecified atrial fibrillation; I87.309 Chronic venous hypertension (idiopathic) without complications of unspecified lower extremity; I95.1 Orthostatic hypotension; J32.9 Chronic sinusitis, unspecified; K21.9 Gastro-esophageal reflux disease without esophagitis; M81.0 Age-related osteoporosis without current pathological fracture; Z79.4 Long term (current) use of insulin; Z79.899 Other long term (current) drug therapy; Z87.440 Personal history of urinary (tract) infections; Z87.891 Personal history of nicotine dependence; Z90.710 Acquired absence of both cervix and uterus; Z99.81 Dependence on supplemental oxygen; W54.0XXA Bitten by dog, initial encounter; Y92.9 Unspecified place or not applicable
CPT/HCPCS: 71010; 73564; 80048; 82550; 82948; 83880; 84484; 85014; 85018; 85025; 85610; 85730; 86140; 86850; 86900; 86901; 87641; 93005; 93308; 93926; 96374; J0360; J1815; J1940

== ENCOUNTER 2017-09-24 19:39 | Inpatient (IN) | payer MEDICARE, BC ==
[~2017-09-24] VITALS: Ht 162.6 cm; Wt 99.2 kg
[~2017-09-24 19:39] MED LIST changes: +AMLO5 PO; +ASPI-516 CHEW; -ASPI81CH CHEW; +FURO1TAB60 PO; +ISOS30TA3 PO; +LISI-519 PO
[2017-09-24] MEDS ORDERED: SODIUM CHLORIDE 0.9% FLUSH 10 ML FLUSH IVF PRN (20:00)
[2017-09-24] MEDS ORDERED: methylPREDNISolone SOD SUCC 125 MG/2 ML VIAL IV PUSH ONE (20:00)
[2017-09-24] MEDS ORDERED: ISOS60TA PO (20:08)
[2017-09-24] MEDS ORDERED: LEVEMIR SQ ×2 (20:08)
[2017-09-24 20:10] VITALS: O2SAT 94
[2017-09-24 20:15] VITALS: O2SAT 95
[2017-09-24] MEDS: RESP: ALBUTEROL 2.5 MG/IPRATROPIUM 0.5 MG NEB (SCH) INH ×3 (20:15→23:32)
[2017-09-24] MEDS ORDERED: FUROSEMIDE 40 MG/4 ML VIAL IV PUSH ONE (20:15)
--- NOTE | 2017-09-24 20:19 | RADRPT ---
EXAM DATE/TIME: 09/24/2017 20:01 [facility] COMPARISON: No previous studies available for comparison. INDICATIONS : Shortness of breath. MEDICAL HISTORY : Chronic obstructive pulmonary disease. Diabetes mellitus type II. Asthma SURGICAL HISTORY : Coronary artery stent. ENCOUNTER: Initial ACUITY: 1 day PAIN SCORE: 0/10 LOCATION: Bilateral chest FINDINGS: Moderate pleural effusions. These are increased from August 10. Basilar airspace disease. No pneum othorax. CONCLUSION: 1. Moderate pleural effusions with basilar airspace disease. Amadou Salazar MD on September 24, 2017 at 20:15 Board Certified Radiologist. This report was verified electronically.
[2017-09-24 21:15] LABS: AUTOMATED NEUTROPHIL # 5.3 TH/MM3 (1.8-7.7); BASOPHIL % 0.7 % (0.0-2.0); EOSINOPHIL # 0.1 TH/MM3 (0-0.4); EOSINOPHIL % 0.8 % (0.0-4.0); HEMATOCRIT 27.7 % (35.0-46.0); HEMO FLAGS DIFF FINAL; LYMPH % 20.9 % (9.0-44.0); LYMPHOCYTE # 1.5 TH/MM3 (1.0-4.8); MEAN CELL VOLUME 88.8 FL (80.0-100.0); MEAN CORPUSCULAR HEMOGLOBIN 29.4 PG (27.0-34.0); MEAN CORPUSCULAR HGB CONC 33.1 % (32.0-36.0); MONO % 5.2 % (0.0-8.0); NEUT % 72.4 % (16.0-70.0); PLATELET COUNT 248 TH/MM3 (150-450); RED BLOOD COUNT 3.12 MIL/MM3 (4.00-5.30); WHITE BLOOD COUNT 7.3 TH/MM3 (4.0-11.0)
[2017-09-24 21:45] LABS: ANION GAP 13 MEQ/L (5-15); AST (GOT) 22 U/L (15-37); BICARBONATE 20.1 MEQ/L (21.0-32.0); BLOOD UREA NITROGEN 31 MG/DL (7-18); CHLORIDE 112 MEQ/L (98-107); GLOMERULAR FILTRATION RATE 28 ML/MIN (>89); MAGNESIUM 2.1 MG/DL (1.5-2.5); POTASSIUM 3.3 MEQ/L (3.5-5.1); SODIUM (NA) 145 MEQ/L (136-145)
--- NOTE | 2017-09-24 21:49 | RADRPT ---
EXAM DATE/TIME: 09/24/2017 20:50 [facility] COMPARISON: CTA RUNOFF W 3D RECON, March 15, 2017, 15:34. INDICATIONS : Short of breath. RADIATION DOSE: 9.74 CTDIvol (mGy) MEDICAL HISTORY : Cardiovascular disease. Diabetes mellitus type 2. SURGICAL HISTORY : None. ENCOUNTER: Initial ACUITY: 2 weeks PAIN SCALE: 0/10 LOCATION: chest TECHNIQUE: Volumetric scanning of the chest was performed. Using automated exposure control and adjustment of t he mA and/or kV according to patient size, radiation dose was kept as low as reasonably achievable to obtain optimal diagnostic quality images. DICOM format image data is available electronically for r eview and comparison. Follow-up recommendations for detected pulmonary nodules are based at a minimum on nodule size and pa tient risk factors according to Fleischner Society Guidelines. FINDINGS: There are moderate to large bilateral pleural effusions which are slightly increased in size from Feb il CT. Compressive atelectasis in both lungs with subsegmental atelectasis anteriorly as well. Modera te coronary calcifications. No adenopathy identified. No pneumothorax. No acute bony abnormalities. CONCLUSION: 1. Moderate size bilateral pleural effusions, slightly increased compared with February. Moderate anasar ca. 2. Compressive and subsegmental atelectasis in both lungs. 3. Moderate to severe coronary calcifications. 4. Negative for thoracic aortic aneurysm. No acute findings in the upper abdomen. Amadou Salazar MD on September 24, 2017 at 21:44 Board Certified Radiologist. This report was verified electronically.
[2017-09-24 21:50] LABS: ALKALINE PHOSPHATASE 129 U/L (45-117); ALT (GPT) 13 U/L (10-53); CREATINE KINASE 133 U/L (26-192); TOTAL BILIRUBIN ADULT 0.2 MG/DL (0.2-1.0)
[2017-09-24 22:02] LABS: CKMB 5.9 NG/ML (0.5-3.6)
[2017-09-24] MEDS ORDERED: MAGNESIUM HYDROXIDE SUSP 30 ML CUP PO PRN (22:45)
[2017-09-24] MEDS ORDERED: SENNOSIDES 8.6 MG TAB PO PRN (22:45)
[2017-09-24] MEDS ORDERED: NALOXONE HCL 0.4 MG/ML AMP IV PUSH PRN (22:45)
[2017-09-24] MEDS ORDERED: LACTULOSE SYRUP 20 GM/30 ML CUP PO PRN (22:45)
[2017-09-24] MEDS ORDERED: POTASSIUM CHLORIDE 10 MEQ CONTROLLED RELEASE TAB PO ONE (22:45)
[2017-09-24] MEDS ORDERED: BISACODYL 10 MG SUPP RECTAL PRN (22:45)
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
[2017-09-24] MEDS: HEPARIN SODIUM - SQ 10,000 UNITS/ML VIAL SQ SCH (23:33)
[2017-09-24 23:34] LABS: BLOOD GAS BASE EXCESS -3.2 mmol/L (-2-2); BLOOD GAS CARBOXYHEMOGLOBIN 1.7 % (0-4); BLOOD GAS HCO3 22 mmol/L (22-26); BLOOD GAS METHEMOGLOBIN 0.5 % (0-2); BLOOD GAS O2 HGB SATURATION 90 % (90-100); BLOOD GAS OXYGEN CONTENT 11.6 Vol % (12.0-20.0); BLOOD GAS PCO2 44 mmHg (38-42); BLOOD GAS PO2 66 mmHG (61-120); BLOOD GAS TOTAL HGB 9.1 G/DL (12.0-16.0); CRITICAL VALUE NO; DRAW SITE RT RADIAL; LITER FLOW 2 L/M; NUMBER OF ARTERIAL PUNCTURES 1; OXYGEN DEVICE NASAL CANNULA; STAT YES; TEMP CORR TO 98.6; ULNAR PULSE PRESENT
[2017-09-24 23:53] VITALS: BP 138/60; PULSE 90; RESP 20; TEMP 95.5; O2SAT 95
[2017-09-25] VITALS (12 sets, daily range): BP systolic 126–189; BP diastolic 60–92; PULSE 64–90; RESP 18–26; TEMP 97.6–98.4; O2SAT 91–97
--- NOTE | 2017-09-25 04:18 | PD ---
HPI Chief Complaint: Respiratory Distress Time Seen by Provider: 19:49 Travel History International Travel<30 days: No Contact w/Intl Traveler<30days: No Traveled to known affect area: No History of Present Illness HPI This is a 66-year-old female who has a history congestive heart failure who presents to the emergency department with 2 days of increasing shortness of breath, constant, moderate severity, worse with laying flat with no associated chest pain. Patient also reports that her legs are swollen. She has been taking her Lasix but doesn't feel like she is making as much urine as she usually does. She also has a history of asthma. She denies any productive cough. She's required a thoracentesis in the past due to fluid accumulation in her lungs. PFSH Past Medical History Hx Anticoagulant Therapy: Yes (ASPIRIN ) Anemia: Yes (iron deficiency) Arthritis: Yes Asthma: Yes Anxiety: No Depression: No Heart Rhythm Problems: No Cancer: No Cardiovascular Problems: Yes (NM 06/2017) High Cholesterol: No Chemotherapy: No Chest Pain: Yes Congestive Heart Failure: Yes COPD: Yes Cerebrovascular Accident: No Coronary Artery Disease: Yes Diabetes: Yes Patient Takes Glucophage: No Diminished Hearing: No Endocrine: No Gastrointestinal Disorders: No GERD: No Genitourinary: No Headaches: No Hepatitis: No Hiatal Hernia: Yes Hypertension: Yes Immune Disorder: No Implanted Vascular Access Dvce: No Kidney Stones: No Musculoskeletal: Yes (ARTHRITIS) Neurologic: Yes (LAMINECTOMY,SIATICA, NEUROPATHY) Psychiatric: No Reproductive: No Respiratory: Yes (copd) Immunizations Current: Yes Migraines: Yes Myocardial Infarction: Yes Radiation Therapy: No Renal Failure: No Seizures: No Sleep Apnea: No Thyroid Disease: No Ulcer: No ?: Not Menopausal: Yes : 1 Para: 1 Miscarriage: 0 Past Surgical History Abdominal Surgery: Yes (appy) AICD: No Appendectomy: Yes Body Medical Devices: CARDIAC STENTS X3 Cardiac Surgery: No Section: Yes Coronary Stent: Yes Ear Surgery: No Endocrine Surgery: No Eye Surgery: No Genitourinary Surgery: No Gynecologic Surgery: Yes (C-SECT., HYSTERECTOMY) Hysterectomy: Yes Neurologic Surgery: No Oral Surgery: Yes (TONSILS) Pacemaker: No Thoracic Surgery: No Tonsillectomy: Yes (ADENOIDS) Other Surgery: Yes (LEFT WRIST GANGLION CYST) Social History Alcohol Use: No Tobacco Use: No (QUIT 2001) Substance Use: Yes (MEDICAL MARIJUANA ) Allergies-Medications (Allergen,Severity, Reaction): Coded Allergies: propoxyphene (Unverified Allergy, Mild, RASH, 09/24/17) Reported Meds & Prescriptions Reported Meds & Active Scripts Active Lasix (Furosemide) 40 Mg Tab 40 Mg PO DAILY Norvasc (Amlodipine Besylate) 5 Mg Tab 5 Mg PO BID Novolog Inj (Insulin Aspart) 100 Unit/Ml Inj 1 Units SQ ACHS SLIDING SCALE 30 Days Sliding Scale As Directed.150-199 1 Unit; 200-249 3 units; 250-299 5 Units; 300-349 7 Units; Reported Levemir Inj (Insulin Detemir) 1,000 unit/ 10 ML Vial 8 Units SQ DAILYAC Do not mix with any other Insulin. Levemir Inj (Insulin Detemir) 1,000 unit/ 10 ML Vial 8 Units SQ HS Do not mix with any other Insulin. Isosorbide Mononitrate ER (Isosorbide Mononitrate) 60 Mg Tab 60 Mg PO DAILY Lisinopril 5 Mg Tab 5 Mg PO DAILY Metoprolol Tartrate 50 Mg Tab 50 Mg PO BID Effient (Prasugrel) 10 Mg Tab 10 Mg PO DAILY Aspirin 81 Mg Chew 81 Mg CHEW DAILY Review of Systems Except as stated in HPI: all other systems reviewed are Neg Physical Exam Narrative GENERAL: Frail, chronically ill-appearing SKIN: 4 x 7 cm wound on the right distal anterior tibia with some clear drainage HEAD: Atraumatic. Normocephalic. EYES: Pupils equal and round. No injection or drainage. ENT: Moist mucous membranes NECK: Trachea midline. CARDIOVASCULAR: Regular rate and rhythm. No murmur appreciated. 2+ bilateral lower extremity pitting edema RESPIRATORY: Rales in the bilateral lung bases, left greater than right, tachypnea, some prolonged expiratory phase, speaking 3 to forward sentences GASTROINTESTINAL: Abdomen soft, non-tender, nondistended. MUSCULOSKELETAL: No obvious deformities. NEUROLOGICAL: Awake and alert. No obvious cranial nerve deficits. Moving all extremities. PSYCHIATRIC: Appropriate mood and affect; insight and judgment normal. Data Data Last Documented VS Vital Signs Date Time Temp Pulse Resp B/P (MAP) Pulse Ox O2 Delivery O2 Flow Rate FiO2 09/24/17 20:15 95 Nasal Cannula 2.00 Orders Orders Complete Blood Count With Diff (09/24/17 19:57) Arterial Blood Gas (Abg) (09/24/17 19:57) Iv Access Insert/Monitor (09/24/17 19:57) Ecg Monitoring (09/24/17 19:57) Oximetry (09/24/17 19:57) Oxygen Administration (09/24/17 19:57) Chest, Single Ap (09/24/17 19:57) Sodium Chloride 0.9% Flush (Ns Flush) (09/24/17 20:00) Methylprednisolone So Succ Inj (Solumedr (09/24/17 20:00) Albuterol-Ipratropium Neb (Duoneb Neb) (09/24/17 20:00) Resp Bipap / Cpap Non Invas Vt (09/24/17 19:57) B-Type Natriuretic Peptide (09/24/17 20:03) Comprehensive Metabolic Panel (09/24/17 20:03) Electrocardiogram (09/24/17 ) Furosemide Inj (Lasix Inj) (09/24/17 20:15) Ct Thorax/ Chest Wo Iv Contras (09/24/17 ) Ckmb (Isoenzyme) Profile (09/24/17 20:03) Magnesium (Mg) (09/24/17 20:03) Troponin I (09/24/17 20:03) CKMB (09/24/17 20:40) CKMB% (09/24/17 20:40) Potassium Chloride (Kcl) (09/24/17 22:45) Vital Signs (Adult) Q4H (09/24/17 22:36) Activity Oob With Assistance (09/24/17 22:36) Manager Of Corporate / Telemetry .CONTINUOUS (09/24/17 22:36) Intake + Output IMTIAZ.QSHIFT (09/24/17 22:36) Diet 1800 Ada Cons Carb (09/25/17 Breakfast) Sodium Chloride 0.9% Flush (Ns Flush) (09/24/17 22:45) Sodium Chloride 0.9% Flush (Ns Flush) (09/25/17 09:00) Comprehensive Metabolic Panel (09/25/17 06:00) Complete Blood Count With Diff (09/25/17 06:00) Case Management Consult (09/24/17 22:36) Heparin Inj (Heparin Inj) (09/24/17 22:45) Naloxone Inj (Narcan Inj) (09/24/17 22:45) Magnesium Hydroxide Liq (Milk Of Magnesi (09/24/17 22:45) Sennosides (Senokot) (09/24/17 22:45) Bisacodyl Supp (Dulcolax Supp) (09/24/17 22:45) Lactulose Liq (Lactulose Liq) (09/24/17 22:45) Amlodipine (Norvasc) (09/25/17 09:00) Aspirin Chew (Aspirin Chew) (09/25/17 09:00) Furosemide (Lasix) (09/25/17 09:00) Isosorbide Mononitrate (Imdur) (09/25/17 07:00) Lisinopril (Prinivil) (09/25/17 09:00) Metoprolol Tartrate (Lopressor) (09/25/17 09:00) Prasugrel (Effient) (09/25/17 09:00) Insulin Aspart Supplemtl Scale (Novolog (09/25/17 08:00) Admit Order (Ed Use Only) (09/24/17 22:45) Labs Laboratory Tests Test 09/24/17 20:04 09/24/17 20:40 White Blood Count 7.3 TH/MM3 Red Blood Count 3.12 MIL/MM3 Hemoglobin 9.2 GM/DL Hematocrit 27.7 % Mean Corpuscular Volume 88.8 FL Mean Corpuscular Hemoglobin 29.4 PG Mean Corpuscular Hemoglobin Concent 33.1 % Red Cell Distribution Width 17.0 % Platelet Count 248 TH/MM3 Mean Platelet Volume 8.0 FL Neutrophils (%) (Auto) 72.4 % Lymphocytes (%) (Auto) 20.9 % Monocytes (%) (Auto) 5.2 % Eosinophils (%) (Auto) 0.8 % Basophils (%) (Auto) 0.7 % Neutrophils # (Auto) 5.3 TH/MM3 Lymphocytes # (Auto) 1.5 TH/MM3 Monocytes # (Auto) 0.4 TH/MM3 Eosinophils # (Auto) 0.1 TH/MM3 Basophils # (Auto) 0.0 TH/MM3 CBC Comment DIFF FINAL Differential Comment Blood Urea Nitrogen 31 MG/DL Creatinine 1.81 MG/DL Random Glucose 75 MG/DL Total Protein 5.7 GM/DL Albumin 2.1 GM/DL Calcium Level 9.6 MG/DL Magnesium Level 2.1 MG/DL Alkaline Phosphatase 129 U/L Aspartate Amino Transf (AST/SGOT) 22 U/L Alanine Aminotransferase (ALT/SGPT) 13 U/L Total Bilirubin 0.2 MG/DL Sodium Level 145 MEQ/L Potassium Level 3.3 MEQ/L Chloride Level 112 MEQ/L Carbon Dioxide Level 20.1 MEQ/L Anion Gap 13 MEQ/L Estimat Glomerular Filtration Rate 28 ML/MIN Total Creatine Kinase 133 U/L Creatine Kinase MB 5.9 NG/ML Troponin I 0.02 NG/ML B-Type Natriuretic Peptide 930 PG/ML MDM Medical Decision Making Medical Screen Exam Complete: Yes Emergency Medical Condition: Yes Interpretation(s) Hypothermic, no tachycardia, hypoxic on room air Anemia similar to prior Mild hypokalemia Mild renal insufficiency slightly worse than prior BNP is 930 Last 24 hours Impressions Chest X-Ray 09/24/171956 Signed Impressions: Service Date/Time: Sunday, September 24, 2017 20:01 - CONCLUSION: 1. Moderate pleural effusions with basilar airspace disease. Amadou Salazar MD Chest CT 09/24/17 0000 Signed Impressions: Service Date/Time: Sunday, September 24, 2017 20:50 - CONCLUSION: 1. Moderate size bilateral pleural effusions, slightly increased compared with February. Moderate anasarca. 2. Compressive and subsegmental atelectasis in both lungs. 3. Moderate to severe coronary calcifications. 4. Negative for thoracic aortic aneurysm. No acute findings in the upper abdomen. Amadou Salazar MD Differential Diagnosis Congestive heart failure, myocardial infarction, pneumonia, COPD exacerbation Narrative Course This is a 66-year-old female who presents to the emergency department with increasing dyspnea and orthopnea. She is volume up on exam. She was hypoxic on room air and has increased work of breathing. She did report a history of asthma initially. She was given serial bronchodilator treatments and steroids. Chest x-ray demonstrates bilateral pleural effusions. Labs demonstrate a BNP of 900. She was given 40 mg of IV Lasix. CT confirms moderate size pleural effusions. Patient requires admission for diuresis and may potentially require thoracentesis if she doesn't improve. Patient was admitted to the medicine service. Physician Communication Physician Communication Discussed with Dr. Koehler Diagnosis Primary Impression: Congestive heart failure Qualified Codes: I50.23 - Acute on chronic systolic (congestive) heart failure Admitting Information Admitting Physician Requests: it Ivone Valencia MD Sep 25, 2017 04:18
[2017-09-25] MEDS ORDERED: ACETAMINOPHEN/HYDROcodone 325 MG/5 MG TAB PO ONE (04:45)
[2017-09-25] MEDS: ISOSORBIDE MONONITRATE 60 MG TAB PO SCH (06:06)
[2017-09-25] MEDS ORDERED: POTASSIUM CHLORIDE 20 MEQ CONTROLLED RELEASE TAB PO ONE (08:00)
--- NOTE | 2017-09-25 08:23 | HHI.PR ---
Subjective Remarks Patient in bed says she feels sob however some improvement since yesterday. Sattiong well on 2L NC, doesn't have O2 at home. + Nonproductive cough, no fever or chills. Feels tired. No nausea, has decreased appetite and say she is too SOB to be able to eat. No n/v/d/c. Objective Vitals Vital Signs Date Time Temp Pulse Resp B/P (MAP) Pulse Ox O2 Delivery O2 Flow Rate FiO2 09/25/17 07:29 98.2 88 22 139/92 (108) 91 09/25/17 04:13 98.4 78 18 183/83 (116) 94 09/25/17 04:01 90 09/25/17 01:11 09/24/17 23:53 95.5 90 20 138/60 (86) 95 Nasal Cannula 2.00 09/24/17 20:15 95 Nasal Cannula 2.00 09/24/17 20:10 94 Nasal Cannula 2.00 09/24/17 20:08 95 Nasal Cannula 2.00 Result Diagram: 09/24/17203909/24/172039 Imaging Last Impressions Chest X-Ray 09/24/171956 Signed Impressions: Service Date/Time: Sunday, September 24, 2017 20:01 - CONCLUSION: 1. Moderate pleural effusions with basilar airspace disease. Amadou Salazar MD Chest CT 09/24/17 0000 Signed Impressions: Service Date/Time: Sunday, September 24, 2017 20:50 - CONCLUSION: 1. Moderate size bilateral pleural effusions, slightly increased compared with February. Moderate anasarca. 2. Compressive and subsegmental atelectasis in both lungs. 3. Moderate to severe coronary calcifications. 4. Negative for thoracic aortic aneurysm. No acute findings in the upper abdomen. Amadou Salazar MD Objective Remarks GENERAL: This is a well-nourished, well-developed patient, in some distress 2/2 short of breath SKIN: Right heel un stageable ulcer, RLE healing dog bite wound CARDIOVASCULAR: Regular rate and rhythm without murmurs, gallops, or rubs. RESPIRATORY: Diminished breath sounds in bases. No wheezes, rales, or rhonchi. GASTROINTESTINAL: Abdomen soft, non-tender, nondistended. MUSCULOSKELETAL: Bilateral lower extremity +2 edema. No calf tenderness. NEUROLOGICAL: Awake and alert. Motor and sensory grossly within normal limits. Five out of 5 muscle strength in all muscle groups. Normal speech. A/P Assessment and Plan 66 y/o female with a history of C Diff, Chronic right lower extremity ulcer secondary to a dog bite, Diastolic CHF, pleural effusion, DM, CAD, CKD, COPD, HTN, GERD, and Bone marrow suppression presented to the ED with shortness of breath. Symptomatic CHF exacerbation, BNP 930- with dyspnea on exertion and at rest, peripheral edema Chest CT reviewed and shows moderate size bilateral pleural effusions, slightly increased from February. -Continue Lasix IV BID. Monitor closely kidney function as might deteriorate 2/2 lasix -Consult cardiology for recommendations -Fluid restriction 1200ml -Patient will need home health at discharge for CHF teaching and daily weights Dysuria, acute, no leukocytosis -Check UA Hypokalemia, potassium 3.3 on admission. -Replaced, monitor and replace as need Chronic right leg ulcer, and new right heel ulcer -Consult Wound care -Dressing per wound care DM2,chronic -ACCU checks AC/HS with SSI CKD3, chronic, creatine at baseline 1.8: cont to monitor, avoid nephrotoxins. MOnitor closely kidney function as patient on lasix. HTN, chronic: Reordered home medication metoprolol and lisinopril, Will order prns as needed DVT prophylaxis: Heparin Discussed Condition With Patient and nurse Lay Camacoh MD Sep 25, 2017 08:23
[2017-09-25] MEDS ORDERED: POTASSIUM CHLORIDE 10 MEQ CONTROLLED RELEASE TAB PO ONE (08:45)
[2017-09-25] MEDS ORDERED: FUROSEMIDE 40 MG TAB PO SCH (09:00)
[2017-09-25] MEDS: METOPROLOL TARTRATE 50 MG TAB PO SCH ×2 (09:11→21:21)
[2017-09-25] MEDS: LISINOPRIL 5 MG TAB PO SCH (09:12)
[2017-09-25] MEDS: ASPIRIN 81 MG CHEW TAB CHEW SCH (09:12)
[2017-09-25] MEDS: amLODIPine BESYLATE 5 MG TAB PO SCH ×2 (09:12→21:21)
[2017-09-25] MEDS: FUROSEMIDE 40 MG/4 ML VIAL IV PUSH SCH ×2 (09:12→17:50)
[2017-09-25] MEDS: SODIUM CHLORIDE 0.9% FLUSH 10 ML FLUSH IV FLUSH SCH ×2 (09:13→21:21)
[2017-09-25] MEDS: INSULIN ASPART SUPPLEMENTAL SCALE SQ SCH ×4 (09:14→21:23)
[2017-09-25] MEDS: NYSTATIN 100,000 U/GM PWD 15 GM BTL TOPICAL SCH ×2 (09:14→21:24)
[2017-09-25 10:00] LABS: BACTERIA, URINE MANY /hpf; BLOOD, URINE NEG (NEG); COMMENT (UR) CULTURE INDICATED; CULTURE IF INDICATED CULTURE INDICATED; GLUCOSE,URINE 150 mg/dL (NEG); KETONE, URINE TRACE mg/dL (NEG); NITRITE,URINE NEG (NEG); PH, URINE 8.5 (5.0-8.5); SQUAMOUS EPITHELIAL CELL URINE 2 /hpf (0-5); TRANSITIONAL EPI CELLS, URINE 1 /hpf; TRIPLE PHOSPHATE CRYSTAL,URINE OCC /hpf; URINE COLOR YELLOW (YELLW/STRAW)
--- NOTE | 2017-09-25 11:35 | MB ---
cc: FATOUMATA RUSSELL M.D., [facility] DATE OF CONSULTATION: 09/25/2017 DATE OF : 1950 REQUESTING PHYSICIAN: Dr. Zuniga. REASON FOR CONSULTATION: Congestive heart failure exacerbation SITE OF CONSULTATION: The emergency room OPERATION SUPERVISOR: Dr. Fatoumata Russell for Dr. Dunia Reddy CHIEF COMPLAINT Shortness of breath. IMPRESSION 1. Preserved heart failure, preserved ejection fraction. 2. Recent myocardial infarction. 3. Atherosclerotic heart disease. 4. Diabetes mellitus. 5. Hypertension. 6. Chronic kidney disease. 7. Creatinine 1.8. RECOMMENDATIONS Agree with plan as outlined by the emergency room and hospitalist. She is suppose to see Dr. Reddy this week. She does not appear to be in any acute distress. Probably could go home later today or tomorrow. SUBJECTIVE: Miss Maynard is a 66-year-old female patient of Dr. Reddy sclerotic heart disease, stent placement for non-STEMI in June of this year. Chronic heart failure preserved ejection fraction diabetes mellitus and hypertension with chronic kidney disease, creatinine 1.8 who presented to the emergency room with increasing shortness of breath one weeks duration. She claims her weight is up 30 pounds over the last month and she does not urinate that much. Denies increased salt intake, she has been compliant with her medications. She is anemic. PAST MEDICAL HISTORY: Remarkable for the above, she is well contained in Dr. Colon note and includes chronic obstructive pulmonary disease, anemia, hypertension, diabetes, arteriosclerotic heart disease as described above. She is an insulin dependant diabetic. MEDICATIONS: Metoprolol 50 mg twice daily. Effient 10 mg a day aspirin 81 mg daily. Isosorbide Mononitrate 30 mg a day. NovoLog insulin Levemir insulin ALLERGIES she has no known medical allergies. SOCIAL HISTORY: Former smoker, does not drink alcohol. Apparently lives alone. REVIEW OF SYSTEMS GASTROINTESTINAL: No hematemesis nor per rectum. RESPIRATORY: Shortness of breath as above. Chronic obstructive pulmonary disease as above. NEUROLOGIC: No history of stroke, epilepsy, transient ischemic attack. GENITOURINARY: History of chronic kidney disease. MUSCULOSKELETAL: She does have right lower extremity healing wound, other twelve-point review of systems negative. PHYSICAL EXAMINATION: HEAD, EYES, EARS, NOSE, AND THROAT: Sclerae clear. NECK: Neck veins are not distended. LUNGS: Clear. CARDIAC: Cardiac exam regular rate rhythm, No murmurs or gallops. ABDOMEN: The abdomen is obese. EXTREMITIES: 1+ edema, right-handed, fluent speech, moves all extremities, gait is not tested. LABORATORY Her white count 4800, hemoglobin 7.5 medical 23. Her creatinine 1.83. Estimated GFR 28, glucose random 305, potassium 4.2. CHEST X-RAY: New consolidative opacity left lung base with bony or costophrenic angles consistent with effusion and/or infiltrate. The findings are consistent with chronic heart failure. Electrocardiogram sinus rhythm. DISCUSSION None. MD LORRI Girard/skylar /8:30 AM /9:51 AM
[2017-09-25] MEDS: cefTRIAXone INJ 1,000 MG in SODIUM CHLORIDE 0.9% INJ 100 ML IV SCH (11:41)
[2017-09-25] MEDS: HEPARIN SODIUM - SQ 10,000 UNITS/ML VIAL SQ SCH ×2 (11:42→21:23)
[2017-09-25 13:48] LABS: AUTOMATED NEUTROPHIL # 7.5 TH/MM3 (1.8-7.7); BASOPHIL % 0.2 % (0.0-2.0); HEMATOCRIT 26.8 % (35.0-46.0); HEMO FLAGS DIFF FINAL; LYMPH % 7.3 % (9.0-44.0); LYMPHOCYTE # 0.6 TH/MM3 (1.0-4.8); MEAN CELL VOLUME 89.7 FL (80.0-100.0); MEAN CORPUSCULAR HEMOGLOBIN 29.4 PG (27.0-34.0); MEAN CORPUSCULAR HGB CONC 32.8 % (32.0-36.0); MONO % 3.1 % (0.0-8.0); NEUT % 89.4 % (16.0-70.0); PLATELET COUNT 260 TH/MM3 (150-450); RED BLOOD COUNT 2.99 MIL/MM3 (4.00-5.30); RED CELL DISTRIBUTION WIDTH 16.6 % (11.6-17.2); WHITE BLOOD COUNT 8.3 TH/MM3 (4.0-11.0)
[2017-09-25 14:05] LABS: ALKALINE PHOSPHATASE 136 U/L (45-117); ALT (GPT) 14 U/L (10-53); ANION GAP 8 MEQ/L (5-15); AST (GOT) 31 U/L (15-37); BICARBONATE 20.7 MEQ/L (21.0-32.0); BLOOD UREA NITROGEN 34 MG/DL (7-18); CHLORIDE 113 MEQ/L (98-107); GLOMERULAR FILTRATION RATE 25 ML/MIN (>89); POTASSIUM 5.2 MEQ/L (3.5-5.1); SODIUM (NA) 142 MEQ/L (136-145); TOTAL BILIRUBIN ADULT 0.2 MG/DL (0.2-1.0)
[2017-09-25] MEDS: INSULIN DETEMIR 100 UNITS/ML VIAL SQ SCH (21:24)
[2017-09-25] MEDS: ACETAMINOPHEN/HYDROcodone 325 MG/5 MG TAB PO PRN (23:07)
[2017-09-26] VITALS (22 sets, daily range): BP systolic 134–149; BP diastolic 64–75; PULSE 56–78; RESP 15–34; TEMP 96.5–98; O2SAT 90–95
--- NOTE | 2017-09-26 00:44 | RADRPT ---
EXAM DATE/TIME: 09/26/2017 01:11 [facility] COMPARISON: CHEST SINGLE AP, September 24, 2017, 20:01. INDICATIONS : Dyspnea. MEDICAL HISTORY : Cardiovascular disease. Diabetes mellitus type 2. SURGICAL HISTORY : None. ENCOUNTER: Initial ACUITY: 2 days PAIN SCORE: 0/10 LOCATION: Bilateral chest FINDINGS: Moderate bilateral pleural effusions with basilar consolidation again noted, not significantly change d. No pneumothorax. Heart size stable, upper limits of normal. CONCLUSION: Persistent bibasilar consolidation and moderate effusions without significant change. Rafa Rocha MD on September 26, 2017 at 0:42 Board Certified Radiologist. This report was verified electronically.
[2017-09-26] MEDS ORDERED: FUROSEMIDE 20 MG/2 ML VIAL IV PUSH ONE ×2 (01:45)
[2017-09-26] MEDS: RESP: ALBUTEROL 2.5 MG/IPRATROPIUM 0.5 MG NEB (PRN) NEB (04:27)
[2017-09-26] MEDS: INSULIN ASPART SUPPLEMENTAL SCALE SQ SCH ×4 (08:00→19:29)
[2017-09-26] MEDS: RESP: ALBUTEROL 2.5 MG/IPRATROPIUM 0.5 MG NEB (SCH) NEB ×4 (08:03→19:59)
[2017-09-26] MEDS: NYSTATIN 100,000 U/GM PWD 15 GM BTL TOPICAL SCH ×2 (09:00→19:29)
[2017-09-26] MEDS: INSULIN DETEMIR 100 UNITS/ML VIAL SQ SCH ×2 (09:00→19:29)
[2017-09-26] MEDS: LISINOPRIL 5 MG TAB PO SCH (09:53)
[2017-09-26] MEDS: amLODIPine BESYLATE 5 MG TAB PO SCH ×2 (09:53→19:29)
[2017-09-26] MEDS: METOPROLOL TARTRATE 50 MG TAB PO SCH ×2 (09:53→19:29)
[2017-09-26] MEDS: SODIUM CHLORIDE 0.9% FLUSH 10 ML FLUSH IV FLUSH SCH ×2 (09:53→19:30)
[2017-09-26] MEDS: ISOSORBIDE MONONITRATE 60 MG TAB PO SCH (09:53)
[2017-09-26] MEDS: ASPIRIN 81 MG CHEW TAB CHEW SCH (09:53)
[2017-09-26] MEDS: FUROSEMIDE 40 MG/4 ML VIAL IV PUSH SCH ×2 (09:54→17:41)
[2017-09-26 10:31] LABS: AUTOMATED NEUTROPHIL # 7.1 TH/MM3 (1.8-7.7); BASOPHIL % 0.3 % (0.0-2.0); EOSINOPHIL % 0.2 % (0.0-4.0); HEMATOCRIT 25.6 % (35.0-46.0); HEMO FLAGS DIFF FINAL; LYMPH % 15.2 % (9.0-44.0); LYMPHOCYTE # 1.4 TH/MM3 (1.0-4.8); MEAN CELL VOLUME 89.9 FL (80.0-100.0); MEAN CORPUSCULAR HEMOGLOBIN 30.9 PG (27.0-34.0); MEAN CORPUSCULAR HGB CONC 34.4 % (32.0-36.0); MONO % 7.2 % (0.0-8.0); NEUT % 77.1 % (16.0-70.0); PLATELET COUNT 247 TH/MM3 (150-450); RED BLOOD COUNT 2.85 MIL/MM3 (4.00-5.30); RED CELL DISTRIBUTION WIDTH 16.2 % (11.6-17.2); WHITE BLOOD COUNT 9.1 TH/MM3 (4.0-11.0)
[2017-09-26 11:08] LABS: BICARBONATE 24.9 MEQ/L (21.0-32.0); POTASSIUM 4.4 MEQ/L (3.5-5.1)
[2017-09-26] MEDS: HEPARIN SODIUM - SQ 10,000 UNITS/ML VIAL SQ SCH ×2 (12:06→19:29)
[2017-09-26] MEDS: cefTRIAXone INJ 1,000 MG in SODIUM CHLORIDE 0.9% INJ 100 ML IV SCH (12:06)
[2017-09-26] MEDS: ACETAMINOPHEN/HYDROcodone 325 MG/5 MG TAB PO PRN ×3 (12:37→22:43)
[2017-09-26] MEDS ORDERED: VANCOMYCIN INJ 1,250 MG in SODIUM CHLOR 0.9% 250 ML INJ 250 ML IV SCH (16:15)
[2017-09-26] MEDS ORDERED: Vancomycin Consult Pharmacy 1 EA OTHER SCH (16:15)
--- NOTE | 2017-09-26 16:16 | HHI.PR ---
Subjective Remarks The patient was on BiPAP. She complained of shortness of breath. She said she is unable to sleep on her back at this time. Discussed with nursing at the bedside. Objective Vitals Vital Signs Date Time Temp Pulse Resp B/P (MAP) Pulse Ox O2 Delivery O2 Flow Rate FiO2 09/26/17 15:41 90 50 09/26/17 14:02 59 09/26/17 13:50 25 09/26/17 13:00 60 09/26/17 12:00 59 09/26/17 11:47 94 Nasal Cannula 6.00 09/26/17 11:00 97.2 59 25 134/66 (88) 93 09/26/17 11:00 74 09/26/17 11:00 93 Nasal Cannula 5.00 Humidified 09/26/17 10:00 60 09/26/17 09:00 72 09/26/17 08:00 56 09/26/17 08:00 95 40 09/26/17 07:00 57 09/26/17 07:00 96.5 60 26 143/75 (97) 95 09/26/17 07:00 95 Bi-Pap 09/26/17 04:28 94 40 09/26/17 03:45 57 32 142/72 (95) 90 09/26/17 03:45 90 Venturi Mask 6.00 50 09/26/17 00:37 97.4 59 34 143/64 (90) 92 09/26/17 00:05 58 09/25/17 22:00 95 Venturi Mask 50 09/25/17 20:14 98.2 65 18 126/60 (82) 95 09/25/17 20:00 64 09/25/17 20:00 97 Nasal Cannula 3.00 09/25/17 19:01 94 Nasal Cannula 4.00 21 Simple Mask I/O 09/25/17 09/25/17 09/25/17 09/26/17 09/26/17 09/26/17 07:00 15:00 23:00 07:00 15:00 23:00 Intake Total 553 ml Output Total 400 ml 400 ml Balance 153 ml -400 ml Intake Oral 461 ml IV Total 92 ml Output Urine Total 400 ml 400 ml # Voids 1 2 Result Diagram: 09/26/17 1010 09/26/17 1010 Imaging Last Impressions Chest X-Ray 09/26/17 0000 Signed Impressions: Service Date/Time: Tuesday, September 26, 2017 01:11 - CONCLUSION: Persistent bibasilar consolidation and moderate effusions without significant change. Rafa Rocha MD Chest CT 09/24/17 0000 Signed Impressions: Service Date/Time: Sunday, September 24, 2017 20:50 - CONCLUSION: 1. Moderate size bilateral pleural effusions, slightly increased compared with February. Moderate anasarca. 2. Compressive and subsegmental atelectasis in both lungs. 3. Moderate to severe coronary calcifications. 4. Negative for thoracic aortic aneurysm. No acute findings in the upper abdomen. Amadou Salazar MD Objective Remarks GENERAL: This is an obese pt in some respiratory distress, on BiPAP. SKIN: Right heel unstageable ulcer, RLE healing dog bite wound. CARDIOVASCULAR: Tachycardic without murmurs, gallops or rubs. RESPIRATORY: Diminished breath sounds bilaterally, tachypnea noted. GASTROINTESTINAL: Abdomen soft, non-tender, nondistended. MUSCULOSKELETAL: Bilateral lower extremity +2 edema. No calf tenderness. NEUROLOGICAL: Awake and alert. Motor and sensory grossly within normal limits. Five out of 5 muscle strength in all muscle groups. Normal speech. Medications and IVs Current Medications Medications (Trade) Dose Ordered Sig/Marie Route Start Time Stop Time Status Last Admin (NS Flush) 2 ml UNSCH PRN IV FLUSH 09/24/17 22:45 (NS Flush) 2 ml BID IV FLUSH 09/25/17 09:00 09/26/17 09:53 (Heparin Inj) 5,000 units Q12H SQ 09/24/17 22:45 09/26/17 12:06 (Narcan Inj) 0.4 mg UNSCH PRN IV PUSH 09/24/17 22:45 (Milk Of Magnesia Liq) 30 ml Q12H PRN PO 09/24/17 22:45 (Senokot) 17.2 mg Q12H PRN PO 09/24/17 22:45 (Dulcolax Supp) 10 mg DAILY PRN RECTAL 09/24/17 22:45 (Lactulose Liq) 30 ml DAILY PRN PO 09/24/17 22:45 (Norvasc) 5 mg BID PO 09/25/17 09:00 10/29/17 09:53 (Aspirin Chew) 81 mg DAILY CHEW 09/25/17 09:00 09/26/17 09:53 (Imdur) 60 mg DAILY@0700 PO 09/25/17 07:00 09/26/17 09:53 (Prinivil) 5 mg DAILY PO 09/25/17 09:00 09/26/17 09:53 (Lopressor) 50 mg BID PO 09/25/17 09:00 09/26/17 09:53 (Effient) 10 mg DAILY PO 09/25/17 09:00 UNV (NovoLOG SUPPLEMENTAL SCALE) 1 ACHS SLIDING SCALE SQ 09/25/17 08:00 09/25/17 21:23 (Mycostatin Powder) 1 applic Q12HR TOPICAL 09/25/17 09:00 09/25/17 21:24 (Levemir Inj) 8 units Q12HR SQ 09/25/17 21:00 09/26/17 09:00 ([place] 5-325 Mg) 1 tab Q4H PRN PO 09/25/17 22:00 09/26/17 12:37 (Duoneb Neb) 1 ampule Q4HR NEB NEB 09/26/17 08:00 09/26/17 15:27 (Duoneb Neb) 1 ampule Q2HR NEB PRN NEB 09/26/17 04:30 09/26/17 04:27 (Lasix Inj) 40 mg BID@09,18 IV PUSH 09/26/17 16:15 UNV Vancomycin HCl 1250 mg/Sodium Chloride 262.5 ml @ 262.5 mls/ hr Q24H IV 09/26/17 16:15 UNV Pharmacy Profile Note 0 ml @ 0 mls/hr UNSCH OTHER 09/26/17 16:15 UNV Piperacillin Sod/ Tazobactam Sod 50 ml @ 100 mls/hr Q6H IV 09/26/17 16:15 UNV A/P Assessment and Plan 66 y/o female with a history of C Diff, Chronic right lower extremity ulcer secondary to a dog bite, Diastolic CHF, pleural effusion, DM, CAD, CKD, COPD, HTN, GERD, and Bone marrow suppression presented to the ED with shortness of breath. Acute respiratory failure Symptomatic CHF exacerbation, BNP 930- with dyspnea on exertion and at rest, peripheral edema. Chest CT reviewed and shows moderate size bilateral pleural effusions, slightly increased from February. Repeat CXR with consolidations. Also has a history of COPD. -Continue Lasix 40 mg IV BID. -Consulted cardiology for recommendations. -Fluid restriction 1200ml -Patient will need home health at discharge for CHF teaching and daily weights. - add IV vancomycin and Zosyn to cover HCAP. - the pt is on BiPAP. Wean as tolerated. Repeat ABG. - Solumedrol 40 mg IV q8h added. - pulmonology consult requested. - nebs. UTI UA indicative of infection. - follow urine culture. - continue Zosyn. Hypokalemia, potassium 3.3 on admission. -Replaced, monitor and replace as need Chronic right leg ulcer, and new right heel ulcer -Consult Wound care -Dressing per wound care DM2,chronic -ACCU checks AC/HS with SSI CKD3, chronic, creatine at baseline 1.8: cont to monitor, avoid nephrotoxins. Monitor closely as patient on Lasix. HTN, chronic: Reordered home medication metoprolol and lisinopril, Will order prns as needed DVT prophylaxis: Heparin Discharge Planning Transfer to ICU for closer monitoring Nura Feliz DO Sep 26, 2017 16:16
[2017-09-26 17:36] LABS: BLOOD GAS BASE EXCESS -1.8 mmol/L (-2-2); BLOOD GAS CARBOXYHEMOGLOBIN 1.3 % (0-4); BLOOD GAS HCO3 23 mmol/L (22-26); BLOOD GAS METHEMOGLOBIN 1.3 % (0-2); BLOOD GAS O2 HGB SATURATION 94 % (90-100); BLOOD GAS OXYGEN CONTENT 11.2 Vol % (12.0-20.0); BLOOD GAS PCO2 43 mmHg (38-42); BLOOD GAS PO2 83 mmHg (61-120); BLOOD GAS TOTAL HGB 8.4 G/DL (12.0-16.0); CRITICAL VALUE NO; DRAW SITE RT RADIAL; FIO2 50 %; NUMBER OF ARTERIAL PUNCTURES 1; OXYGEN DEVICE BIPAP; STAT YES; TEMP CORR TO 98.6; VENT SETTINGS IPAP12/EPAP6
[2017-09-26] MEDS: PIPERACIL-TAZO 2.25 GM PREMIX 50 ML IV SCH ×2 (17:41→22:43)
[2017-09-26] MEDS: methylPREDNISolone SOD SUCC 40 MG/1 ML VIAL IV PUSH SCH (17:41)
[2017-09-26 17:43] LABS: HEMATOCRIT 25.7 % (35.0-46.0); MEAN CELL VOLUME 91.2 FL (80.0-100.0); MEAN CORPUSCULAR HEMOGLOBIN 30.2 PG (27.0-34.0); MEAN CORPUSCULAR HGB CONC 33.1 % (32.0-36.0); PLATELET COUNT 229 TH/MM3 (150-450); RED BLOOD COUNT 2.82 MIL/MM3 (4.00-5.30); RED CELL DISTRIBUTION WIDTH 16.9 % (11.6-17.2); REVIEW FLAG FINAL; WHITE BLOOD COUNT 8.5 TH/MM3 (4.0-11.0)
[2017-09-26 17:56] LABS: INTERNATIONAL NORMALIZED RATIO 0.9 RATIO; PROTHROMBIN TIME - PATIENT 9.8 SEC (9.8-11.6)
[2017-09-26] MEDS ORDERED: VANCOMYCIN IV ONE ×4 (18:00→19:00)
[2017-09-26] MEDS ORDERED: NS IV ONE ×4 (18:00→19:00)
--- NOTE | 2017-09-26 19:53 | MB ---
cc: OSORIO ESPARZA DATE OF CONSULTATION: 09/26/2017. REASON FOR CONSULTATION: Shortness of breath. Pleural effusion. REQUESTING PHYSICIAN: Dr. Nura Feliz. HISTORY OF PRESENT ILLNESS: Ms. Maynard is a 66-year obese female with history of congestive heart failure, COPD, coronary artery disease and diabetes mellitus. She has a chronic leg wound on the right lower extremity after a dog bite. She came to the hospital with worsening of her shortness of breath going on for at least one week. She has increased swelling in her legs. She did not have fever or chills. No night sweats. No chest pain. She claims to be taking diuretics, but was not compliant to her medication or to her fluid restriction. With these symptoms, she came to the hospital. She had a workup. Her white blood cell count is 9.1, hemoglobin 8.8, hematocrit 25.6, MCV86, platelet count 247,000. Her blood gas showed pH 7.32, pC02 44, p02 44 and that was on two liters nasal cannula. Sodium 146, potassium 4.4, chloride 115, carbon dioxide 25, BUN 37, creatinine 2.01. She had a CT scan of the chest done which shows moderate sized bilateral pleural effusions, slightly increased and compressive atelectasis. The patient was having more shortness of breath. She was put on BiPAP and currently she is on 12/7 BiPAP with FIO2 of 50%. PAST MEDICAL HISTORY: Her past medical history is significant for: 1. History of diabetes mellitus. 2. COPD. 3. Coronary artery disease. 4. Congestive heart failure. 5. Chronic kidney disease. 6. History of bone marrow aspiration. 7. Hypertension. 8. History of C. difficile colitis. 9. History of section. 10. History of dog bite on the right leg. 11. Back surgery. 12. History of ganglion surgery. MEDICATIONS: She is currently takin. Lasix 40 milligrams. 2. Vancomycin 1250 milligrams q. 24 hours. 3. Zosyn q. 6 hours. 4. Solu-Medrol 40 milligrams q. 8 hours. 5. Albuterol and Atrovent nebulizer treatment. 6. [place] 5/325 q. 4 hours PRN. 7. Amlodipine 5 milligrams a day. 8. Aspirin 81 milligrams a day. 9. Lasix 25 milligrams daily. 10. Metoprolol 50 milligrams a day. 11. Effient 10 milligrams a day. 12. Imdur 60 milligrams a day. 13. Heparin 5000 q. 12 hours. ALLERGIES: 1. PROPOXYPHENE. SOCIAL HISTORY: She is . She used to work for the [employer]. She has a history of smoking, which she quit. FAMILY HISTORY: She has one child. REVIEW OF SYSTEMS: She walks only a short distance. She has gained weight. She has more swelling in her legs. She denies any seizure, stroke or epilepsy. PHYSICAL EXAMINATION: GENERAL: A moderately obese female mild to moderate short of breath. She is on BiPAP 11/04. VITAL SIGNS: Her blood pressure is 134/66, heart rate 62, respirations 25, temperature 98. HEAD, EYES, EARS, NOSE, THROAT: Pupils are equal and reactive. NECK: The neck is supple. JVP not raised. CHEST: She has decreased breath sounds at the bases. CARDIOVASCULAR: S1-S2 normal. ABDOMEN: Abdomen obese and nontender. Bowel sounds are present. EXTREMITIES: 2+ pedal edema. PODIATRIST ASSISTANT: She is alert and oriented times three. No focal deficits. IMPRESSION: 1. Moderate bilateral pleural effusions. 2. Congestive heart failure. 3. COPD. 4. Respiratory insufficiency. 5. Diabetes mellitus. 6. Chronic kidney disease. 7. History of dog bite. PLAN: 1. We will diurese her. 2. Give her aerosol treatment with albuterol and Atrovent. 3. Continue antibiotics. 4. Continue BiPAP and wean from the BiPAP as she tolerates. 5. Consult interventional radiology for a right thoracentesis, which will be sent for studies. Further treatment will depend on the course in the hospital. Thank you, Dr. Feliz, for this consult. Osorio Esparza MD ADA/JCC /4:31 PM /7:39 PM STEVAN
--- NOTE | 2017-09-26 21:07 | EKG ---
Date Performed: 09/24/2017 Time Performed: 20:20:11 PTAGE: 66 years EKG: Irregular rhythm possible atrial fibrillation LOW QRS VOLTAGE ANTEROSEPTAL MYOCARDIAL INFAR CTION ABNORMAL ECG PREVIOUS TRACING : 08/11/2017 09.36 DOCTOR: Cuco Enciso Interpretating Date/Time 09/26/2017 20:58:30
[2017-09-26] MEDS: CHLORHEXIDINE GLUCONATE 2 % 1 PACK (2 CLOTHS)(taper/protocol) TOPICAL SCH (21:13)
[2017-09-26] MEDS ORDERED: CHLORHEXIDINE GLUCONATE 2 % 1 PACK (2 CLOTHS)(extra cloths) TOPICAL PRN (21:15)
[2017-09-27] VITALS (17 sets, daily range): BP systolic 147–168; BP diastolic 66–77; PULSE 72–107; RESP 16–34; TEMP 98.1–98.6; O2SAT 94–99
[2017-09-27] MEDS: RESP: ALBUTEROL 2.5 MG/IPRATROPIUM 0.5 MG NEB (SCH) NEB ×6 (00:19→21:05)
[2017-09-27] MEDS: methylPREDNISolone SOD SUCC 40 MG/1 ML VIAL IV PUSH SCH ×3 (01:21→16:44)
[2017-09-27] MEDS ORDERED: hydrALAZINE HCL 20 MG/ML VIAL IV PUSH ONE (03:45)
[2017-09-27] MEDS: ACETAMINOPHEN/HYDROcodone 325 MG/5 MG TAB PO PRN (04:18)
[2017-09-27 05:48] LABS: HEMATOCRIT 27.5 % (35.0-46.0); MEAN CORPUSCULAR HEMOGLOBIN 29.2 PG (27.0-34.0); MEAN CORPUSCULAR HGB CONC 32.5 % (32.0-36.0); PLATELET COUNT 255 TH/MM3 (150-450); RED BLOOD COUNT 3.05 MIL/MM3 (4.00-5.30); RED CELL DISTRIBUTION WIDTH 16.6 % (11.6-17.2); REVIEW FLAG FINAL; WHITE BLOOD COUNT 9.1 TH/MM3 (4.0-11.0)
[2017-09-27 06:02] LABS: APTT (PATIENT) 26.3 SEC (24.3-30.1)
[2017-09-27 06:13] LABS: BICARBONATE 22.7 MEQ/L (21.0-32.0); MAGNESIUM 2.3 MG/DL (1.5-2.5); POTASSIUM 4.7 MEQ/L (3.5-5.1)
[2017-09-27] MEDS: PIPERACIL-TAZO 2.25 GM PREMIX 50 ML IV SCH (06:32)
[2017-09-27] MEDS: ISOSORBIDE MONONITRATE 60 MG TAB PO SCH (06:32)
[2017-09-27] MEDS: INSULIN ASPART SUPPLEMENTAL SCALE SQ SCH ×4 (08:00→21:00)
[2017-09-27] MEDS: PRASUGREL 10 MG TAB PO SCH (09:00)
[2017-09-27] MEDS: NYSTATIN 100,000 U/GM PWD 15 GM BTL TOPICAL SCH ×2 (09:00→21:00)
[2017-09-27] MEDS: INSULIN DETEMIR 100 UNITS/ML VIAL SQ SCH (09:00)
[2017-09-27] MEDS: amLODIPine BESYLATE 5 MG TAB PO SCH ×2 (09:12→21:36)
[2017-09-27] MEDS: LISINOPRIL 5 MG TAB PO SCH (09:12)
[2017-09-27] MEDS: FUROSEMIDE 40 MG/4 ML VIAL IV PUSH SCH ×2 (09:12→16:44)
[2017-09-27] MEDS: ASPIRIN 81 MG CHEW TAB CHEW SCH (09:13)
[2017-09-27] MEDS: METOPROLOL TARTRATE 50 MG TAB PO SCH ×2 (09:13→21:36)
[2017-09-27] MEDS: SODIUM CHLORIDE 0.9% FLUSH 10 ML FLUSH IV FLUSH SCH ×2 (09:13→21:36)
[2017-09-27] MEDS: HEPARIN SODIUM - SQ 10,000 UNITS/ML VIAL SQ SCH ×2 (09:15→21:38)
--- NOTE | 2017-09-27 10:17 | HHI.PR ---
Subjective Remarks Follow-up for congestive heart failure, respiratory failure, acute kidney disease. Patient is resting in bed, denies any acute concerns. No fever or chills. She reports shortness of breath on minimal exertion. Objective Vitals Vital Signs Date Time Temp Pulse Resp B/P (MAP) Pulse Ox O2 Delivery O2 Flow Rate FiO2 09/27/17 07:20 97 50 09/27/17 07:20 95 Nasal Cannula 6.00 09/27/17 06:00 86 09/27/17 04:01 98 50 09/27/17 04:00 99 Bi-Pap 50 09/27/17 04:00 98.6 81 34 168/76 (106) 99 09/27/17 04:00 81 09/27/17 02:00 107 09/27/17 00:20 95 40 09/27/17 00:00 76 09/27/17 00:00 98 Bi-Pap 40 09/27/17 00:00 98.4 76 16 167/77 (107) 98 09/26/17 22:00 76 09/26/17 20:00 77 09/26/17 20:00 98.0 77 15 149/71 (97) 95 09/26/17 20:00 95 Bi-Pap 12.00 50 09/26/17 19:59 95 50 09/26/17 18:00 74 09/26/17 17:00 74 09/26/17 16:00 78 09/26/17 15:41 90 50 09/26/17 15:37 62 25 134/66 (88) 92 09/26/17 15:37 92 Bi-Pap 12.00 50 09/26/17 15:00 74 09/26/17 14:02 59 09/26/17 13:50 25 09/26/17 13:00 60 09/26/17 12:00 59 09/26/17 11:47 94 Nasal Cannula 6.00 09/26/17 11:00 97.2 59 25 134/66 (88) 93 09/26/17 11:00 74 09/26/17 11:00 93 Nasal Cannula 5.00 Humidified I/O 09/26/17 09/26/17 09/26/17 09/27/17 09/27/17 09/27/17 07:00 15:00 23:00 07:00 15:00 23:00 Intake Total 480 ml 100 ml Output Total 850 ml 1300 ml Balance -370 ml -1300 ml 100 ml Intake Oral 480 ml IV Total 100 ml Output Urine Total 850 ml 1300 ml # Bowel Movements 0 Result Diagram: 09/27/170 09/27/17 034 Imaging Last Impressions Chest X-Ray 09/26/17 0000 Signed Impressions: Service Date/Time: Tuesday, September 26, 2017 01:11 - CONCLUSION: Persistent bibasilar consolidation and moderate effusions without significant change. Rafa Rocha MD Chest CT 09/24/17 0000 Signed Impressions: Service Date/Time: Sunday, September 24, 2017 20:50 - CONCLUSION: 1. Moderate size bilateral pleural effusions, slightly increased compared with February. Moderate anasarca. 2. Compressive and subsegmental atelectasis in both lungs. 3. Moderate to severe coronary calcifications. 4. Negative for thoracic aortic aneurysm. No acute findings in the upper abdomen. Amadou Salazar MD Objective Remarks GENERAL: Alert, NAD. Anasarca present. SKIN: Warm and dry. HEAD: Normocephalic. EYES: No scleral icterus. No injection or drainage. NECK: Supple, trachea midline. No JVD or lymphadenopathy. CARDIOVASCULAR: Regular rate and rhythm without murmurs, gallops, or rubs. Bibasilar crackles present. RESPIRATORY: Breath sounds equal bilaterally. No accessory muscle use. GASTROINTESTINAL: Abdomen soft, non-tender, nondistended. MUSCULOSKELETAL: No cyanosis. Lower extremity edema 2+. This upper extremity edema as well. BACK: Nontender without obvious deformity. No CVA tenderness. Procedures None in this admission 08/11/2017 Echo The left ventricular systolic function is normal with an estimated ejection fraction in the range of 60-65%. Normal left ventricular size. Mild concentric left ventricular hypertrophy. No regional wall motion abnormalities are present. Structurally normal mitral valve. Trace mitral regurgitation. A/P Assessment and Plan Ms. Maynard is a 66-year-old female with a history of coronary artery disease, COPD, CK D, congestive heart failure who presented to the emergency department on 09/24/2017 due to shortness of breath. BNP on arrival 9:30. Imaging studies show bilateral pleural effusion. - Acute exacerbation of diastolic congestive heart failure - Acute respiratory failure hypoxic - Bilateral pleural effusion - Cardiology and pulmonology following. - Continue Lasix 40 mg IV twice a day. - Ultrasound-guided thoracentesis pending. Patient may need bilateral thoracentesis. - Possible healthcare associated pneumonia. - Atelectasis - COPD - Patient was in the hospital within last 2 months. Chest x-ray from 2016 shows bibasilar consolidation as well as moderate effusions. - We'll switch patient's antibiotics to Ceftriaxone and Levaquin 750 mg renally adjusted. Discontinue vancomycin and Zosyn. - Continue Ceftriaxone and Levaquin while patient in the ICU. Consider switching to Levaquin PO only once patient is out of ICU to the med-surg floor. - Start incentive spirometry. Continue breathing treatments. - Solu-Medrol 40 mg every 8 hours. - Coronary artery disease - Continue Prevacid Grell 10 mg daily, aspirin 81 mg daily, isosorbide mononitrate 60 mg daily - Also continue metoprolol 50 mg twice a day, lisinopril 5 mg daily. - Acute on chronic kidney disease - Creatinine 2.08. We'll continue to monitor. If creatinine continues to trend up, we will consider consulting nephrology. - Diabetes mellitus - Continue Levemir and sliding scale insulin. Will change Levemir to 10 units QHS. - If needed we'll add pre-meal insulin. - Urinary tract infection with Proteus mirabilis - Continue antibiotics. We'll start her on ceftriaxone today. Full code. Heparin subcutaneous. Jaquelin Bender DO Sep 27, 2017 10:17 am
--- NOTE | 2017-09-27 11:59 | RADRPT ---
EXAM DATE/TIME: 09/27/2017 11:36 [facility] COMPARISON: CHEST EXPIRATION ONLY, April 26, 2017, 17:47. INDICATIONS : Post right thoracentisis. Evaluate for pneumothorax MEDICAL HISTORY : Cardiovascular disease. Diabetes mellitus type II. SURGICAL HISTORY : None. ENCOUNTER: Initial ACUITY: 1 day PAIN SCORE: 0/10 LOCATION: Right chest FINDINGS: There is no pneumothorax following right thoracentesis. Moderate bibasilar parenchymal changes and l eft effusion remain. The period there is moderate congestive failure. CONCLUSION: Negative for pneumothorax following thoracentesis.. Meek Trimble MD FACR on September 27, 2017 at 11:57 Board Certified Radiologist. This report was verified electronically.
[2017-09-27 12:13] LABS: PLEURAL FLUID LYMPHS 20 %
[2017-09-27 12:15] LABS: TOTAL PROTEIN,PLEURAL FLUID 0.7 GM/DL
--- NOTE | 2017-09-27 13:02 | RADRPT ---
EXAM DATE/TIME: 09/27/2017 10:21 [facility] COMPARISON: No previous studies available for comparison. INDICATIONS : Right pleural effusion. MEDICAL HISTORY : Congestive heart failure. Myocardial infarction. Chronic obstructive pulmonary disease. Retinopathy. Migraines. Neuropathy. Valvular heart disease. Coronary artery disease. Anticoagulant therapy. Asthma . Hiatal hernia. . Renal disease. Arthritis. Diabetes. Iron deficiency anemia. Blood transfu phil. C.diff. MRSA. VRE. SURGICAL HISTORY : Tonsillectomy. Coronary artery stent. Appendectomy. Angioplasty. Lumbar surgery. Hysterectomy. ENCOUNTER: Initial ACUITY: 4 - 6 days PAIN SCORE: 0/10 LOCATION: Right chest FLUID: Total volume of 850 cc of clear, yellow fluid was removed. Fluid was sent to lab for ordered studies. TECHNIQUE: 1. Ultrasound guidance for thoracentesis. 2. Thoracentesis. The risks, benefits, and alternatives to ultrasound guided thoracentesis were explained to the patien t in lay simple terms, including the risk of bleeding and infection. Written and verbal informed con sent was obtained. Appropriate area for thoracentesis was marked under ultrasound guidance with the patient in the uprig ht position. Overlying skin was prepped and draped in the usual sterile fashion and with local anest hetic, a dermatotomy was made with an 11 blade scalpel. A 6 [place] thoracentesis catheter was placed in the pleural space and fluid was removed. Catheter was then removed and a sterile dressing applie d. There were no immediate complications. The patient tolerated the procedure well and the left the ultrasound suite in stable condition. Chest radiograph is to be obtained. CONCLUSION: Uncomplicated ultrasound guided thoracentesis. Linwood Chadwick MD on September 27, 2017 at 13:00 Board Certified Radiologist. This report was verified electronically.
[2017-09-27] MEDS: cefTRIAXone INJ 1,000 MG in SODIUM CHLORIDE 0.9% INJ 100 ML IV SCH (13:44)
[2017-09-27] MEDS: LEVOFLOXACIN 750 MG TAB PO SCH (13:44)
--- NOTE | 2017-09-27 17:35 | PD.CARD.PN ---
Subjective Subjective Remarks Feels much better after thoracentesis, no CP, mild SOB, still has LE edema Objective Medications Current Medications Medications (Trade) Dose Ordered Sig/Marie Route Start Time Stop Time Status Last Admin (NS Flush) 2 ml UNSCH PRN IV FLUSH 09/24/17 22:45 (NS Flush) 2 ml BID IV FLUSH 09/25/17 09:00 09/27/17 09:13 (Heparin Inj) 5,000 units Q12H SQ 09/24/17 22:45 09/26/17 19:29 (Narcan Inj) 0.4 mg UNSCH PRN IV PUSH 09/24/17 22:45 (Milk Of Magnesia Liq) 30 ml Q12H PRN PO 09/24/17 22:45 (Senokot) 17.2 mg Q12H PRN PO 09/24/17 22:45 (Dulcolax Supp) 10 mg DAILY PRN RECTAL 09/24/17 22:45 (Lactulose Liq) 30 ml DAILY PRN PO 09/24/17 22:45 (Norvasc) 5 mg BID PO 09/25/17 09:00 09/27/17 09:12 (Aspirin Chew) 81 mg DAILY CHEW 09/25/17 09:00 09/27/17 09:13 (Imdur) 60 mg DAILY@0700 PO 09/25/17 07:00 09/27/17 06:32 (Prinivil) 5 mg DAILY PO 09/25/17 09:00 09/27/17 09:12 (Lopressor) 50 mg BID PO 09/25/17 09:00 09/27/17 09:13 (Effient) 10 mg DAILY PO 09/25/17 12:00 (NovoLOG SUPPLEMENTAL SCALE) 1 ACHS SLIDING SCALE SQ 09/25/17 08:00 09/27/17 17:00 (Mycostatin Powder) 1 applic Q12HR TOPICAL 09/25/17 09:00 09/27/17 09:00 ([place] 5-325 Mg) 1 tab Q4H PRN PO 09/25/17 22:00 09/27/17 04:18 (Duoneb Neb) 1 ampule Q2HR NEB PRN NEB 09/26/17 04:30 09/26/17 04:27 (Lasix Inj) 40 mg BID@,18 IV PUSH 09/26/17 18:00 09/27/17 16:44 (SoluMEDROL INJ) 40 mg Q8H IV PUSH 09/26/17 18:00 09/27/17 16:44 Miscellaneous Information Patient in critical care unit? Ass... [id number] .XX 09/26/17 21:15 09/26/17 21:12 (Chlorhexidine 2% Cloth) 3 pack DAILY@04 TOPICAL 09/27/17 04:00 10/01/17 04:01 09/26/17 21:13 (Chlorhexidine 2% Cloth) 3 pack UNSCH PRN TOPICAL 09/26/17 21:15 10/01/17 21:11 (Duoneb Neb) 1 ampule Q6HR NEB NEB 09/27/17 16:00 09/27/17 16:53 Ceftriaxone Sodium 1000 mg/ Sodium Chloride 100 ml @ 200 mls/hr Q24H IV 09/27/17 12:00 09/27/17 13:44 (Levaquin) 750 mg Q48H PO 09/27/17 13:00 09/27/17 13:44 (Levemir Inj) 10 units HS SQ 09/27/17 21:00 Vital Signs / I&O Vital Signs Date Time Temp Pulse Resp B/P (MAP) Pulse Ox O2 Delivery O2 Flow Rate FiO2 09/27/17 16:00 72 09/27/17 16:00 96 Nasal Cannula 3.00 09/27/17 16:00 98.3 72 17 147/67 (93) 95 09/27/17 14:00 83 09/27/17 12:00 83 09/27/17 12:00 95 Nasal Cannula 5.00 09/27/17 12:00 98.3 83 18 158/69 (98) 95 09/27/17 10:00 86 09/27/17 08:00 99 Bi-Pap 50 09/27/17 08:00 87 09/27/17 08:00 98.1 87 21 156/66 (96) 95 09/27/17 07:20 97 50 09/27/17 07:20 95 Nasal Cannula 6.00 09/27/17 06:00 86 09/27/17 04:01 98 50 09/27/17 04:00 99 Bi-Pap 50 09/27/17 04:00 98.6 81 34 168/76 (106) 99 09/27/17 04:00 81 09/27/17 02:00 107 09/27/17 00:20 95 40 09/27/17 00:00 76 09/27/17 00:00 98 Bi-Pap 40 09/27/17 00:00 98.4 76 16 167/77 (107) 98 09/26/17 22:00 76 09/26/17 20:00 77 09/26/17 20:00 98.0 77 15 149/71 (97) 95 09/26/17 20:00 95 Bi-Pap 12.00 50 09/26/17 19:59 95 50 09/26/17 18:00 74 I/O 09/26/17 09/26/17 09/26/17 09/27/17 09/27/17 09/27/17 07:00 15:00 23:00 07:00 15:00 23:00 Intake Total 480 ml 100 ml Output Total 850 ml 1300 ml Balance -370 ml -1300 ml 100 ml Intake Oral 480 ml IV Total 100 ml Output Urine Total 850 ml 1300 ml # Bowel Movements 0 Physical Exam GENERAL: In NAD SKIN: Warm and dry. HEAD: Normocephalic. EYES: No scleral icterus. No injection or drainage. NECK: Supple, trachea midline. No JVD or lymphadenopathy. CARDIOVASCULAR: Regular rate and rhythm, without murmurs, gallops, or rubs. RESPIRATORY: Breath sounds equal bilaterally. No accessory muscle use. Decreased BS at bases. GASTROINTESTINAL: Abdomen soft, non-tender, nondistended. MUSCULOSKELETAL: No cyanosis, bilat LE edema. Laboratory Laboratory Tests Test 09/26/17 19:15 09/27/17 03:40 09/27/17 11:00 Nasal Screen MRSA (PCR) MRSA DETECTED White Blood Count 9.1 TH/MM3 Red Blood Count 3.05 MIL/MM3 Hemoglobin 8.9 GM/DL Hematocrit 27.5 % Mean Corpuscular Volume 90.0 FL Mean Corpuscular Hemoglobin 29.2 PG Mean Corpuscular Hemoglobin Concent 32.5 % Red Cell Distribution Width 16.6 % Platelet Count 255 TH/MM3 Mean Platelet Volume 8.8 FL Activated Partial Thromboplast Time 26.3 SEC Blood Urea Nitrogen 38 MG/DL Creatinine 2.08 MG/DL Random Glucose 169 MG/DL Calcium Level 9.7 MG/DL Magnesium Level 2.3 MG/DL Sodium Level 145 MEQ/L Potassium Level 4.7 MEQ/L Chloride Level 114 MEQ/L Carbon Dioxide Level 22.7 MEQ/L Anion Gap 8 MEQ/L Estimat Glomerular Filtration Rate 24 ML/MIN Pleural Fluid pH 8.0 Pleural Fluid WBC 207 /MM3 Pleural Fluid RBC 198 /MM3 Pleural Fluid Neutrophils 56 % Pleural Fluid Lymphocytes 20 % Pleural Fluid Monocytes 6 % Pleural Fluid Histiocytes 13 % Pleural Fluid Mesothelial Cells 5 % Pleural Fluid Total Protein 0.7 GM/DL Pleural Fluid LDH 42 U/L Pleural Fluid Glucose 223 MG/DL Imaging Last 24 hours Impressions Thoracentesis Ultrasound 09/27/17 0600 Signed Impressions: Service Date/Time: Wednesday, September 27, 2017 10:21 - CONCLUSION: Uncomplicated ultrasound guided thoracentesis. Linwood Chadwick MD Chest X-Ray 09/27/17 0000 Signed Impressions: Service Date/Time: Wednesday, September 27, 2017 11:36 - CONCLUSION: Negative for pneumothorax following thoracentesis.. Meek Trimble MD FACR Assessment and Plan Problem List: (1) Congestive heart failure ICD Codes: I50.9 - Heart failure, unspecified Status: Acute (2) Pleural effusion ICD Codes: J90 - Pleural effusion, not elsewhere classified (3) CAD (coronary artery disease) ICD Codes: I25.10 - Atherosclerotic heart disease of [place] coronary artery without angina pectoris Status: Chronic (4) Diabetes mellitus with peripheral vascular disease ICD Codes: E11.51 - Type 2 diabetes mellitus with diabetic peripheral angiopathy without gangrene Status: Chronic (5) CONOR (acute kidney injury) ICD Codes: N17.9 - Acute kidney failure, unspecified Status: Acute (6) HTN (hypertension) ICD Codes: I10 - Essential (primary) hypertension Status: Chronic (7) Pneumonia ICD Codes: J18.9 - Pneumonia, unspecified organism Assessment and Plan Continue IV diuresis, closely monitor renal fx. Still very edematous. May need repeated thoracentesis. Recent echo w preserved LV systolic fx. No evidence of ACS at this time. Continue abxs for pneumonia. Increase activity. Problem Qualifiers (1) Congestive heart failure: Qualified Codes: I50.23 - Acute on chronic systolic (congestive) heart failure Dunia Reddy MD Sep 27, 2017 17:35
[2017-09-27] MEDS ORDERED: VANCOMYCIN 1,000 MG/NS 250 ML IV SCH ×2 (18:00)
--- NOTE | 2017-09-27 18:19 | PD.WCN.NOT ---
Wound Consult Description: Received consult from Jane PETERSON for R heel pressure injury Communicated with: HARSH Urbano 5th floor C and Call placed to Doctor Jaquelin Bender Recommendation: 1.Please apply heel raiser boots to bilateral feet 2.Please paint R heel wound with povidone-iodine BID and leave open to air 3. Please cleanse R leg wounds with normal saline and apply Vaseline gauze ( Petrolatum gauze)in a single layer just over wound beds and cover with dry 4x4 gauze pads. Secure dressing with rolled gauze and tape and change dressing daily or PRN if saturated or dislodged Additional Information: Patient seen on 5th floor [facility] [place] evaluation of R heel pressure injury.Patient is known to inpatient wound care, and was followed for wound on R lower leg from a dog bite. Removed rolled gauze dressing in place to RLE to reveal R heel unstageable pressure injury. Wound presents with 100% dry black eschar that is beginning to peel off at the edges.Wound measures ~2cm x ~2cm. Painted wound with povidone-iodine swab and left open to air. R lower leg is noted with two leg ulcers. Distal medial Lower leg ulcer presents with ~80% pink tissue and ~20% yellow exudate. Wound has scant serous drainage that is without odor.Wound measures 4.2cm x 2cm x~0.1cm. Periwound presents with dry scaly skin and scar tissue, but is other [place] unremarkable. Proximal lower leg wound presents with 100% pale pink tissue and minimal serous drainage that is without odor.Periwound is also noted with dry scaly skin, but is otherwise unremarkable Wound measures 0.9cm x 0.7cm x 0.3cm. Cleansed both wounds with normal saline and applied single layer of Vaseline gauze just over wound beds and covered with dry 4x4 gauze pads. Secured dressing with rolled gauze and tape. Evelyn Sanchez CRN Sep 27, 2017 18:19
[2017-09-27] MEDS ORDERED: INSULIN DETEMIR 100 UNITS/ML VIAL SQ SCH (21:00)
--- NOTE | 2017-09-27 21:07 | HHI.PR ---
Subjective Remarks 66 YOWF with COPD,PL eff Lung infilt, Resp Insuff On VM Had Thoracentesis No Fever Objective Vital Signs Vital Signs Date Time Temp Pulse Resp B/P (MAP) Pulse Ox O2 Delivery O2 Flow Rate FiO2 09/27/17 21:00 94 Nasal Cannula 4.00 09/27/17 18:00 80 09/27/17 16:00 72 09/27/17 16:00 96 Nasal Cannula 3.00 09/27/17 16:00 98.3 72 17 147/67 (93) 95 09/27/17 14:00 83 09/27/17 12:00 83 09/27/17 12:00 95 Nasal Cannula 5.00 09/27/17 12:00 98.3 83 18 158/69 (98) 95 09/27/17 10:00 86 09/27/17 08:00 99 Bi-Pap 50 09/27/17 08:00 87 09/27/17 08:00 98.1 87 21 156/66 (96) 95 09/27/17 07:20 97 50 09/27/17 07:20 95 Nasal Cannula 6.00 09/27/17 06:00 86 09/27/17 04:01 98 50 09/27/17 04:00 99 Bi-Pap 50 09/27/17 04:00 98.6 81 34 168/76 (106) 99 09/27/17 04:00 81 09/27/17 02:00 107 09/27/17 00:20 95 40 09/27/17 00:00 76 09/27/17 00:00 98 Bi-Pap 40 09/27/17 00:00 98.4 76 16 167/77 (107) 98 09/26/17 22:00 76 I/O 09/26/17 09/26/17 09/26/17 09/27/17 09/27/17 09/27/17 07:00 15:00 23:00 07:00 15:00 23:00 Intake Total 480 ml 100 ml 350 ml Output Total 850 ml 1300 ml 500 ml Balance -370 ml -1300 ml 100 ml -150 ml Intake Oral 480 ml 350 ml IV Total 100 ml Output Urine Total 850 ml 1300 ml 500 ml # Bowel Movements 0 0 Result Diagram: 09/27/1733909/27/17339 Objective Remarks GENERAL: Elderly WF, mild sob SKIN: Warm and dry. HEAD: Normocephalic. EYES: No scleral icterus. No injection or drainage. NECK: Supple, trachea midline. No JVD or lymphadenopathy. CARDIOVASCULAR: Regular rate and rhythm without murmurs, gallops, or rubs. RESPIRATORY: Breath sounds equal bilaterally. No accessory muscle use. GASTROINTESTINAL: Abdomen soft, non-tender, nondistended. MUSCULOSKELETAL: No cyanosis, or edema. BACK: Nontender without obvious deformity. No CVA tenderness. A/P Assessment and Plan Pleural eff, s/p TC COPD Resp insuff DM PLAN: Supplement [address] fluid results Cont Abx Monitor Aaron Matta MD Sep 27, 2017 21:07
[2017-09-28] VITALS (23 sets, daily range): BP systolic 144–169; BP diastolic 67–74; PULSE 83–90; RESP 0–28; TEMP 98.1–98.6; O2SAT 90–97
[2017-09-28] MEDS: methylPREDNISolone SOD SUCC 40 MG/1 ML VIAL IV PUSH SCH ×3 (02:29→17:00)
[2017-09-28] MEDS: RESP: ALBUTEROL 2.5 MG/IPRATROPIUM 0.5 MG NEB (SCH) NEB ×4 (03:13→22:20)
[2017-09-28] MEDS: CHLORHEXIDINE GLUCONATE 2 % 1 PACK (2 CLOTHS)(taper/protocol) TOPICAL SCH (04:00)
[2017-09-28 05:43] LABS: BICARBONATE 24.2 MEQ/L (21.0-32.0); POTASSIUM 4.6 MEQ/L (3.5-5.1)
[2017-09-28] MEDS: ISOSORBIDE MONONITRATE 60 MG TAB PO SCH (06:03)
[2017-09-28] MEDS: SODIUM CHLORIDE 0.9% FLUSH 10 ML FLUSH IV FLUSH SCH ×2 (08:11→20:28)
[2017-09-28] MEDS: FUROSEMIDE 40 MG/4 ML VIAL IV PUSH SCH ×2 (08:11→17:00)
[2017-09-28] MEDS: METOPROLOL TARTRATE 50 MG TAB PO SCH ×2 (08:11→20:27)
[2017-09-28] MEDS: ASPIRIN 81 MG CHEW TAB CHEW SCH (08:11)
[2017-09-28] MEDS: PRASUGREL 10 MG TAB PO SCH (08:11)
[2017-09-28] MEDS: LISINOPRIL 5 MG TAB PO SCH (08:12)
[2017-09-28] MEDS: NYSTATIN 100,000 U/GM PWD 15 GM BTL TOPICAL SCH ×2 (08:12→20:29)
[2017-09-28] MEDS: amLODIPine BESYLATE 5 MG TAB PO SCH ×2 (08:12→20:27)
[2017-09-28] MEDS: INSULIN ASPART SUPPLEMENTAL SCALE SQ SCH ×4 (08:35→20:28)
--- NOTE | 2017-09-28 08:38 | HHI.PR ---
Subjective Remarks Follow-up for congestive heart failure, respiratory failure, acute kidney disease. Patient is doing much better today. She had right-sided thoracentesis yesterday. She is breathing better and feels more energetic. Eating breakfast in bed. Denies any chest pain, shortness of breath, fever or chills. Objective Vitals Vital Signs Date Time Temp Pulse Resp B/P (MAP) Pulse Ox O2 Delivery O2 Flow Rate FiO2 09/28/17 06:00 84 09/28/17 04:00 85 09/28/17 04:00 98.1 85 18 158/67 (97) 96 09/28/17 04:00 96 Nasal Cannula 3.00 09/28/17 03:24 97 Nasal Cannula 4.00 09/28/17 02:00 85 09/28/17 00:00 98.3 86 17 166/74 (104) 97 09/28/17 00:00 97 Nasal Cannula 3.00 09/28/17 00:00 86 09/27/17 23:36 97 Nasal Cannula 4.00 09/27/17 22:00 91 09/27/17 21:00 94 Nasal Cannula 4.00 09/27/17 20:00 78 09/27/17 20:00 99 Nasal Cannula 3.00 09/27/17 20:00 98.6 78 16 152/69 (96) 99 09/27/17 18:00 80 09/27/17 16:00 72 09/27/17 16:00 96 Nasal Cannula 3.00 09/27/17 16:00 98.3 72 17 147/67 (93) 95 09/27/17 14:00 83 09/27/17 12:00 83 09/27/17 12:00 95 Nasal Cannula 5.00 09/27/17 12:00 98.3 83 18 158/69 (98) 95 09/27/17 10:00 86 I/O 09/27/17 09/27/17 09/27/17 09/28/17 09/28/17 09/28/17 07:00 15:00 23:00 07:00 15:00 23:00 Intake Total 100 ml 350 ml 240 ml Output Total 1300 ml 500 ml 1250 ml Balance -1300 ml 100 ml -150 ml -1010 ml Intake Oral 350 ml 240 ml IV Total 100 ml Output Urine Total 1300 ml 500 ml 1250 ml # Bowel Movements 0 0 0 Result Diagram: 09/27/17 0340 09/28/17 0457 Imaging Last Impressions Thoracentesis Ultrasound 09/27/17 0600 Signed Impressions: Service Date/Time: Wednesday, September 27, 2017 10:21 - CONCLUSION: Uncomplicated ultrasound guided thoracentesis. Linwood Chadwick MD Chest X-Ray 09/27/17 0000 Signed Impressions: Service Date/Time: Wednesday, September 27, 2017 11:36 - CONCLUSION: Negative for pneumothorax following thoracentesis.. Meke Trimble MD FACR Chest CT 09/24/17 0000 Signed Impressions: Service Date/Time: Sunday, September 24, 2017 20:50 - CONCLUSION: 1. Moderate size bilateral pleural effusions, slightly increased compared with February. Moderate anasarca. 2. Compressive and subsegmental atelectasis in both lungs. 3. Moderate to severe coronary calcifications. 4. Negative for thoracic aortic aneurysm. No acute findings in the upper abdomen. Amadou Salazar MD Objective Remarks GENERAL: More alert today, NAD. SKIN: Warm and dry. HEAD: Normocephalic. EYES: No scleral icterus. No injection or drainage. NECK: Supple, trachea midline. No JVD or lymphadenopathy. CARDIOVASCULAR: Regular rate and rhythm without murmurs, gallops, or rubs. Diminished breath sound on the left. RESPIRATORY: Breath sounds equal bilaterally. No accessory muscle use. GASTROINTESTINAL: Abdomen soft, non-tender, nondistended. MUSCULOSKELETAL: No cyanosis. Lower extremity edema 2+. This upper extremity edema as well. BACK: Nontender without obvious deformity. No CVA tenderness. Procedures US guided right sided thoracentesis on 09/27/2017. 08/11/2017 Echo (Prior admission). The left ventricular systolic function is normal with an estimated ejection fraction in the range of 60-65%. Normal left ventricular size. Mild concentric left ventricular hypertrophy. No regional wall motion abnormalities are present. Structurally normal mitral valve. Trace mitral regurgitation. A/P Assessment and Plan Ms. Maynard is a 66-year-old female with a history of coronary artery disease, COPD, CK D, congestive heart failure who presented to the emergency department on 09/24/2017 due to shortness of breath. BNP on arrival 9:30. Imaging studies show bilateral pleural effusion. - Acute exacerbation of diastolic congestive heart failure - Acute respiratory failure hypoxic - Bilateral pleural effusion - Cardiology and pulmonology following. - Continue Lasix 40 mg IV twice a day. - Ultrasound-guided thoracentesis right side done on 09/27/2017. We will request Left sided thoracentesis today. - Has not used BiPAP overnight. - Possible healthcare associated pneumonia. - Atelectasis - COPD - Patient was in the hospital within last 2 months. Chest x-ray from 2016 shows bibasilar consolidation as well as moderate effusions. - We'll switch patient's antibiotics to Ceftriaxone and Levaquin 750 mg renally adjusted. Discontinue vancomycin and Zosyn. - Continue Ceftriaxone and Levaquin while patient in the ICU. Consider switching to Levaquin PO only once patient is out of ICU to the med-surg floor. - Continue incentive spirometry. Continue breathing treatments. - Solu-Medrol 40 mg every 8 hours. - Coronary artery disease - Continue Prasugrel 10 mg daily, aspirin 81 mg daily, isosorbide mononitrate 60 mg daily - Also continue metoprolol 50 mg twice a day, lisinopril 5 mg daily. - Acute on chronic kidney disease - Creatinine 2.08 --> 2.22. - Diabetes mellitus - Continue Levemir and sliding scale insulin. Increase Levemir from 10 units to 12 units QHS. - Add pre-meal insulin Aspart 5 units TIDAC. - Urinary tract infection with Proteus mirabilis - Continue Ceftriaxone. - If patient continues to do well after thoracentesis, we will consider transferring her to the med-surg floor. Full code. Heparin subcutaneous. Jaquelin Bender DO Sep 28, 2017 8:38 am
[2017-09-28] MEDS: HEPARIN SODIUM - SQ 10,000 UNITS/ML VIAL SQ SCH ×2 (10:45→22:23)
[2017-09-28] MEDS: cefTRIAXone INJ 1,000 MG in SODIUM CHLORIDE 0.9% INJ 100 ML IV SCH (11:54)
[2017-09-28] MEDS: INSULIN ASPART 1,000 UNITS/10 ML VIAL SQ SCH ×2 (12:00→17:00)
--- NOTE | 2017-09-28 14:23 | RADRPT ---
EXAM DATE/TIME: 09/28/2017 13:45 [facility] COMPARISON: CHEST EXPIRATION ONLY, September 27, 2017, 11:36. INDICATIONS : Post thoracentesis. MEDICAL HISTORY : None. SURGICAL HISTORY : None. ENCOUNTER: Initial ACUITY: 1 day PAIN SCORE: 0/10 LOCATION: Left chest FINDINGS: There is no pneumothorax status-post left thoracentesis. Small right pleural effusion is noted. Sca ttered bibasilar atelectasis is noted. The heart is enlarged. CONCLUSION: 1. No pneumothorax status-post left thoracentesis. 2. Small right pleural effusion. 3. The heart is enlarged. Linwood Chadwick MD on September 28, 2017 at 13:55 Board Certified Radiologist. This report was verified electronically.
--- NOTE | 2017-09-28 14:32 | RADRPT ---
EXAM DATE/TIME: 09/28/2017 12:36 [facility] COMPARISON: US GUIDED THORACENTESIS LEFT, April 25, 2017, 16:57. INDICATIONS : Left pleural effusion. MEDICAL HISTORY : Chronic obstructive pulmonary disease. Congestive heart failure. Myocardial infarction. Valvular hear t disease. Hypertension. A-fib. Hiatal hernia. Renal disease. Diabetes. MRSA. C-diff. SURGICAL HISTORY : Tonsillectomy. Coronary artery stent. section. Angioplasty. Hysterectomy. Appendectomy. Back surgery. ENCOUNTER: Subsequent ACUITY: 2 days PAIN SCORE: 0/10 LOCATION: Left chest FLUID: Total volume of 1400 cc of clear, yellow fluid was removed. Fluid was sent to lab for ordered studies. TECHNIQUE: 1. Ultrasound guidance for thoracentesis. 2. Thoracentesis. The risks, benefits, and alternatives to ultrasound guided thoracentesis were explained to the patien t in lay simple terms, including the risk of bleeding and infection. Written and verbal informed con sent was obtained. Appropriate area for thoracentesis was marked under ultrasound guidance with the patient in the uprig ht position. Overlying skin was prepped and draped in the usual sterile fashion and with local anest hetic, a dermatotomy was made with an 11 blade scalpel. A 6 [place] thoracentesis catheter was placed in the pleural space and fluid was removed. Catheter was then removed and a sterile dressing applie d. There were no immediate complications. The patient tolerated the procedure well and the left the ultrasound suite in stable condition. Chest radiograph is to be obtained. CONCLUSION: Uncomplicated ultrasound guided thoracentesis. Linwood Chadwick MD on September 28, 2017 at 14:30 Board Certified Radiologist. This report was verified electronically.
[2017-09-28] MEDS: ACETAMINOPHEN/HYDROcodone 325 MG/5 MG TAB PO PRN (15:00)
--- NOTE | 2017-09-28 15:49 | PD.CARD.PN ---
Subjective Subjective Remarks Feels better again after the second thoracentesis, no CP or SOB, LE edema improving Objective Medications Current Medications Medications (Trade) Dose Ordered Sig/Marie Route Start Time Stop Time Status Last Admin (NS Flush) 2 ml UNSCH PRN IV FLUSH 09/24/17 22:45 (NS Flush) 2 ml BID IV FLUSH 09/25/17 09:00 09/28/17 08:11 (Heparin Inj) 5,000 units Q12H SQ 09/24/17 22:45 09/27/17 21:38 (Narcan Inj) 0.4 mg UNSCH PRN IV PUSH 09/24/17 22:45 (Milk Of Magnesia Liq) 30 ml Q12H PRN PO 09/24/17 22:45 (Senokot) 17.2 mg Q12H PRN PO 09/24/17 22:45 (Dulcolax Supp) 10 mg DAILY PRN RECTAL 09/24/17 22:45 (Lactulose Liq) 30 ml DAILY PRN PO 09/24/17 22:45 (Norvasc) 5 mg BID PO 09/25/17 09:00 09/28/17 08:12 (Aspirin Chew) 81 mg DAILY CHEW 09/25/17 09:00 09/28/17 08:11 (Imdur) 60 mg DAILY@0700 PO 09/25/17 07:00 09/28/17 06:03 (Prinivil) 5 mg DAILY PO 09/25/17 09:00 09/28/17 08:12 (Lopressor) 50 mg BID PO 09/25/17 09:00 09/28/17 08:11 (Effient) 10 mg DAILY PO 09/25/17 12:00 09/28/17 08:11 (NovoLOG SUPPLEMENTAL SCALE) 1 ACHS SLIDING SCALE SQ 09/25/17 08:00 09/28/17 08:35 (Mycostatin Powder) 1 applic Q12HR TOPICAL 09/25/17 09:00 09/28/17 08:12 ([place] 5-325 Mg) 1 tab Q4H PRN PO 09/25/17 22:00 09/28/17 15:00 (Duoneb Neb) 1 ampule Q2HR NEB PRN NEB 09/26/17 04:30 09/26/17 04:27 (Lasix Inj) 40 mg BID@09,18 IV PUSH 09/26/17 18:00 09/28/17 08:11 (SoluMEDROL INJ) 40 mg Q8H IV PUSH 09/26/17 18:00 09/28/17 08:36 Miscellaneous Information Patient in critical care unit? Ass... Q361D .XX 09/26/17 21:15 09/26/17 21:12 (Chlorhexidine 2% Cloth) 3 pack DAILY@04 TOPICAL 09/27/17 04:00 10/01/17 04:01 09/28/17 04:00 (Chlorhexidine 2% Cloth) 3 pack UNSCH PRN TOPICAL 09/26/17 21:15 10/01/17 21:11 (Duoneb Neb) 1 ampule Q6HR NEB NEB 09/27/17 16:00 09/28/17 08:49 Ceftriaxone Sodium 1000 mg/ Sodium Chloride 100 ml @ 200 mls/hr Q24H IV 09/27/17 12:00 09/28/17 11:54 (Levaquin) 750 mg Q48H PO 09/27/17 13:00 09/27/17 13:44 (Levemir Inj) 12 units HS SQ 09/28/17 21:00 (NovoLOG INJ) 5 units TIDAC SQ 09/28/17 12:00 Vital Signs / I&O Vital Signs Date Time Temp Pulse Resp B/P (MAP) Pulse Ox O2 Delivery O2 Flow Rate FiO2 09/28/17 14:53 84 18 169/71 (103) 94 09/28/17 13:22 98.4 85 28 158/68 (98) 90 09/28/17 12:00 98.3 85 9 149/68 (95) 96 09/28/17 12:00 85 09/28/17 12:00 96 Nasal Cannula 3.00 09/28/17 11:00 84 17 159/69 (99) 94 09/28/17 10:00 85 09/28/17 10:00 85 16 155/69 (97) 96 09/28/17 09:00 84 19 165/74 (104) 96 09/28/17 08:51 96 Nasal Cannula 3.00 09/28/17 08:00 85 09/28/17 08:00 95 Nasal Cannula 3.00 09/28/17 08:00 98.6 85 19 163/73 (103) 95 09/28/17 07:00 84 23 162/74 (103) 94 09/28/17 06:00 84 09/28/17 04:00 85 09/28/17 04:00 98.1 85 18 158/67 (97) 96 09/28/17 04:00 96 Nasal Cannula 3.00 09/28/17 03:24 97 Nasal Cannula 4.00 09/28/17 02:00 85 09/28/17 00:00 98.3 86 17 166/74 (104) 97 09/28/17 00:00 97 Nasal Cannula 3.00 09/28/17 00:00 86 09/27/17 23:36 97 Nasal Cannula 4.00 09/27/17 22:00 91 09/27/17 21:00 94 Nasal Cannula 4.00 09/27/17 20:00 78 09/27/17 20:00 99 Nasal Cannula 3.00 09/27/17 20:00 98.6 78 16 152/69 (96) 99 09/27/17 18:00 80 09/27/17 16:00 72 09/27/17 16:00 96 Nasal Cannula 3.00 09/27/17 16:00 98.3 72 17 147/67 (93) 95 I/O 09/27/17 09/27/17 09/27/17 09/28/17 09/28/17 09/28/17 07:00 15:00 23:00 07:00 15:00 23:00 Intake Total 100 ml 350 ml 240 ml Output Total 1300 ml 500 ml 1250 ml Balance -1300 ml 100 ml -150 ml -1010 ml Intake Oral 350 ml 240 ml IV Total 100 ml Output Urine Total 1300 ml 500 ml 1250 ml # Bowel Movements 0 0 0 Physical Exam GENERAL: In NAD SKIN: Warm and dry. HEAD: Normocephalic. EYES: No scleral icterus. No injection or drainage. NECK: Supple, trachea midline. No JVD or lymphadenopathy. CARDIOVASCULAR: Regular rate and rhythm, without murmurs, gallops, or rubs. RESPIRATORY: Breath sounds equal bilaterally. No accessory muscle use. Clear. GASTROINTESTINAL: Abdomen soft, non-tender, nondistended. MUSCULOSKELETAL: No cyanosis, bilat LE edema. Laboratory Laboratory Tests Test 09/28/17 04:57 09/28/17 13:25 Blood Urea Nitrogen 49 MG/DL Creatinine 2.22 MG/DL Random Glucose 239 MG/DL Calcium Level 9.1 MG/DL Sodium Level 143 MEQ/L Potassium Level 4.6 MEQ/L Chloride Level 112 MEQ/L Carbon Dioxide Level 24.2 MEQ/L Anion Gap 7 MEQ/L Estimat Glomerular Filtration Rate 22 ML/MIN Pleural Fluid pH 7.5 Pleural Fluid WBC 188 /MM3 Pleural Fluid RBC 840 /MM3 Pleural Fluid Neutrophils 91 % Pleural Fluid Monocytes 5 % Pleural Fluid Histiocytes 4 % Imaging Last 24 hours Impressions Thoracentesis Ultrasound 09/28/17 0000 Signed Impressions: Service Date/Time: Thursday, September 28, 2017 12:36 - CONCLUSION: Uncomplicated ultrasound guided thoracentesis. Linwood Chadwick MD Chest X-Ray 09/28/17 0000 Signed Impressions: Service Date/Time: Thursday, September 28, 2017 13:45 - CONCLUSION: 1. No pneumothorax status-post left thoracentesis. 2. Small right pleural effusion. 3. The heart is enlarged. Linwood Chadwick MD Assessment and Plan Problem List: (1) Congestive heart failure ICD Codes: I50.9 - Heart failure, unspecified Status: Acute (2) Pleural effusion ICD Codes: J90 - Pleural effusion, not elsewhere classified (3) CAD (coronary artery disease) ICD Codes: I25.10 - Atherosclerotic heart disease of [place] coronary artery without angina pectoris Status: Chronic (4) Diabetes mellitus with peripheral vascular disease ICD Codes: E11.51 - Type 2 diabetes mellitus with diabetic peripheral angiopathy without gangrene Status: Chronic (5) CONOR (acute kidney injury) ICD Codes: N17.9 - Acute kidney failure, unspecified Status: Acute (6) HTN (hypertension) ICD Codes: I10 - Essential (primary) hypertension Status: Chronic (7) Pneumonia ICD Codes: J18.9 - Pneumonia, unspecified organism Assessment and Plan Overall improved after bilat thoracentesis. Continue IV diuresis, closely monitoring renal fx. Recent echo showed preserved LV systolic fx. No evidence of ACS at this time. Continue abxs for pneumonia. Increase activity. Anticipate transfer out of ICU soon. Problem Qualifiers (1) Congestive heart failure: Qualified Codes: I50.23 - Acute on chronic systolic (congestive) heart failure Dunia Reddy MD Sep 28, 2017 15:49
[2017-09-28] MEDS: SODIUM CHLORIDE 0.9% FLUSH 10 ML FLUSH IV FLUSH PRN (17:01)
[2017-09-28] MEDS ORDERED: PHARMACY ORDERED LAB ONE (17:45)
--- NOTE | 2017-09-28 19:49 | HHI.PR ---
Subjective Remarks 66 YOWF with COPD,PL eff Lung infilt, Resp Insuff On VM Had Thoracentesis, 1400 cc fluid removed No Fever Objective Vital Signs Vital Signs Date Time Temp Pulse Resp B/P (MAP) Pulse Ox O2 Delivery O2 Flow Rate FiO2 09/28/17 18:00 90 3 151/67 (95) 95 09/28/17 18:00 90 09/28/17 17:00 90 9 144/67 (92) 94 09/28/17 16:00 98 Nasal Cannula 3.00 09/28/17 16:00 85 09/28/17 16:00 98.4 85 4 157/72 (100) 97 09/28/17 15:00 83 4 168/74 (105) 96 09/28/17 14:53 84 18 169/71 (103) 94 09/28/17 14:52 84 0 169/71 (103) 93 09/28/17 13:22 98.4 85 28 158/68 (98) 90 09/28/17 12:00 98.3 85 9 149/68 (95) 96 09/28/17 12:00 85 09/28/17 12:00 96 Nasal Cannula 3.00 09/28/17 11:00 84 17 159/69 (99) 94 09/28/17 10:00 85 09/28/17 10:00 85 16 155/69 (97) 96 09/28/17 09:00 84 19 165/74 (104) 96 09/28/17 08:51 96 Nasal Cannula 3.00 09/28/17 08:00 85 09/28/17 08:00 95 Nasal Cannula 3.00 09/28/17 08:00 98.6 85 19 163/73 (103) 95 09/28/17 07:00 84 23 162/74 (103) 94 09/28/17 06:00 84 09/28/17 04:00 85 09/28/17 04:00 98.1 85 18 158/67 (97) 96 09/28/17 04:00 96 Nasal Cannula 3.00 09/28/17 03:24 97 Nasal Cannula 4.00 09/28/17 02:00 85 09/28/17 00:00 98.3 86 17 166/74 (104) 97 09/28/17 00:00 97 Nasal Cannula 3.00 09/28/17 00:00 86 09/27/17 23:36 97 Nasal Cannula 4.00 09/27/17 22:00 91 09/27/17 21:00 94 Nasal Cannula 4.00 09/27/17 20:00 78 09/27/17 20:00 99 Nasal Cannula 3.00 09/27/17 20:00 98.6 78 16 152/69 (96) 99 I/O 09/27/17 09/27/17 09/27/17 09/28/17 09/28/17 09/28/17 07:00 15:00 23:00 07:00 15:00 23:00 Intake Total 100 ml 350 ml 240 ml 763 ml Output Total 1300 ml 500 ml 1250 ml 875 ml Balance -1300 ml 100 ml -150 ml -1010 ml -112 ml Intake Oral 350 ml 240 ml 663 ml IV Total 100 ml 100 ml Output Urine Total 1300 ml 500 ml 1250 ml 875 ml # Bowel Movements 0 0 0 Result Diagram: 09/27/17 0340 09/28/17 0457 Objective Remarks GENERAL: Elderly WF, mild sob SKIN: Warm and dry. HEAD: Normocephalic. EYES: No scleral icterus. No injection or drainage. NECK: Supple, trachea midline. No JVD or lymphadenopathy. CARDIOVASCULAR: Regular rate and rhythm without murmurs, gallops, or rubs. RESPIRATORY: Breath sounds equal bilaterally. No accessory muscle use. GASTROINTESTINAL: Abdomen soft, non-tender, nondistended. MUSCULOSKELETAL: No cyanosis, or edema. BACK: Nontender without obvious deformity. No CVA tenderness. A/P Assessment and Plan Pleural eff, s/p TC COPD Resp insuff DM PLAN: Supplement [address] fluid results Cont Abx Monitor Aaron Matta MD Sep 28, 2017 19:49
[2017-09-28] MEDS ORDERED: INSULIN DETEMIR 100 UNITS/ML VIAL SQ SCH (21:00)
[2017-09-29] VITALS (15 sets, daily range): BP systolic 155–174; BP diastolic 72–79; PULSE 62–92; RESP 7–30; TEMP 97.9–98.7; O2SAT 95–99
[2017-09-29] MEDS: CHLORHEXIDINE GLUCONATE 2 % 1 PACK (2 CLOTHS)(taper/protocol) TOPICAL SCH (03:18)
[2017-09-29] MEDS: methylPREDNISolone SOD SUCC 40 MG/1 ML VIAL IV PUSH SCH ×3 (03:18→17:56)
[2017-09-29] MEDS: RESP: ALBUTEROL 2.5 MG/IPRATROPIUM 0.5 MG NEB (SCH) NEB ×4 (04:28→21:25)
[2017-09-29] MEDS: ISOSORBIDE MONONITRATE 60 MG TAB PO SCH (06:17)
[2017-09-29] MEDS: INSULIN ASPART SUPPLEMENTAL SCALE SQ SCH ×4 (08:07→21:00)
[2017-09-29] MEDS: INSULIN ASPART 1,000 UNITS/10 ML VIAL SQ SCH ×3 (08:07→17:55)
[2017-09-29] MEDS: FUROSEMIDE 40 MG/4 ML VIAL IV PUSH SCH ×2 (08:08→17:56)
[2017-09-29] MEDS: PRASUGREL 10 MG TAB PO SCH (08:08)
[2017-09-29] MEDS: SODIUM CHLORIDE 0.9% FLUSH 10 ML FLUSH IV FLUSH PRN ×2 (08:08→17:56)
[2017-09-29] MEDS: ASPIRIN 81 MG CHEW TAB CHEW SCH (08:08)
[2017-09-29] MEDS: METOPROLOL TARTRATE 50 MG TAB PO SCH ×2 (08:08→20:46)
[2017-09-29] MEDS: SODIUM CHLORIDE 0.9% FLUSH 10 ML FLUSH IV FLUSH SCH ×2 (08:08→20:46)
[2017-09-29] MEDS: amLODIPine BESYLATE 5 MG TAB PO SCH (08:09)
[2017-09-29] MEDS: LISINOPRIL 5 MG TAB PO SCH (08:09)
[2017-09-29] MEDS: NYSTATIN 100,000 U/GM PWD 15 GM BTL TOPICAL SCH ×2 (08:09→23:18)
--- NOTE | 2017-09-29 09:25 | PD.CARD.PN ---
Subjective Subjective Remarks Feels better after thoracenteses, wants to go home. No CP or SOB. Still w significant edema. Objective Medications Current Medications Medications (Trade) Dose Ordered Sig/Marie Route Start Time Stop Time Status Last Admin (NS Flush) 2 ml UNSCH PRN IV FLUSH 09/24/17 22:45 09/29/17 08:08 (NS Flush) 2 ml BID IV FLUSH 09/25/17 09:00 09/29/17 08:08 (Heparin Inj) 5,000 units Q12H SQ 09/24/17 22:45 09/28/17 22:23 (Narcan Inj) 0.4 mg UNSCH PRN IV PUSH 09/24/17 22:45 (Milk Of Magnesia Liq) 30 ml Q12H PRN PO 09/24/17 22:45 (Senokot) 17.2 mg Q12H PRN PO 09/24/17 22:45 (Dulcolax Supp) 10 mg DAILY PRN RECTAL 09/24/17 22:45 (Lactulose Liq) 30 ml DAILY PRN PO 09/24/17 22:45 (Norvasc) 5 mg BID PO 09/25/17 09:00 09/29/17 08:09 (Aspirin Chew) 81 mg DAILY CHEW 09/25/17 09:00 09/29/17 08:08 (Imdur) 60 mg DAILY@0700 PO 09/25/17 07:00 09/29/17 06:17 (Prinivil) 5 mg DAILY PO 09/25/17 09:00 09/29/17 08:09 (Lopressor) 50 mg BID PO 09/25/17 09:00 09/29/17 08:08 (Effient) 10 mg DAILY PO 09/25/17 12:00 09/29/17 08:08 (NovoLOG SUPPLEMENTAL SCALE) 1 ACHS SLIDING SCALE SQ 09/25/17 08:00 09/29/17 08:07 (Mycostatin Powder) 1 applic Q12HR TOPICAL 09/25/17 09:00 09/29/17 08:09 ([place] 5-325 Mg) 1 tab Q4H PRN PO 09/25/17 22:00 09/28/17 15:00 (Duoneb Neb) 1 ampule Q2HR NEB PRN NEB 09/26/17 04:30 09/26/17 04:27 (Lasix Inj) 40 mg BID@09,18 IV PUSH 09/26/17 18:00 09/29/17 08:08 (SoluMEDROL INJ) 40 mg Q8H IV PUSH 09/26/17 18:00 09/29/17 03:18 Miscellaneous Information Patient in critical care unit? Ass... Q361D .XX 09/26/17 21:15 09/26/17 21:12 (Chlorhexidine 2% Cloth) 3 pack DAILY@04 TOPICAL 09/27/17 04:00 10/01/17 04:01 09/29/17 03:18 (Chlorhexidine 2% Cloth) 3 pack UNSCH PRN TOPICAL 09/26/17 21:15 10/01/17 21:11 (Duoneb Neb) 1 ampule Q6HR NEB NEB 09/27/17 16:00 09/29/17 08:20 Ceftriaxone Sodium 1000 mg/ Sodium Chloride 100 ml @ 200 mls/hr Q24H IV 09/27/17 12:00 09/28/17 11:54 (Levaquin) 750 mg Q48H PO 09/27/17 13:00 09/27/17 13:44 (Levemir Inj) 12 units HS SQ 09/28/17 21:00 09/28/17 20:28 (NovoLOG INJ) 5 units TIDAC SQ 09/28/17 12:00 09/29/17 08:07 Vital Signs / I&O Vital Signs Date Time Temp Pulse Resp B/P (MAP) Pulse Ox O2 Delivery O2 Flow Rate FiO2 09/29/17 09:00 85 20 170/79 (109) 97 09/29/17 08:20 96 Nasal Cannula 2.00 09/29/17 08:00 95 Nasal Cannula 2.00 09/29/17 08:00 98.0 86 8 171/78 (109) 95 09/29/17 08:00 86 09/29/17 07:00 85 7 165/76 (105) 95 09/29/17 06:00 84 09/29/17 04:28 98 Nasal Cannula 4.00 09/29/17 04:00 98.7 85 15 174/77 (109) 99 09/29/17 04:00 85 09/29/17 04:00 95 Nasal Cannula 2.00 09/29/17 02:00 85 09/29/17 00:00 95 Nasal Cannula 2.00 09/29/17 00:00 98.5 86 16 168/73 (104) 96 09/29/17 00:00 86 09/28/17 23:24 96 Nasal Cannula 4.00 09/28/17 22:21 96 Nasal Cannula 4.00 09/28/17 22:00 84 09/28/17 20:00 98.6 89 18 152/68 (96) 95 09/28/17 20:00 89 09/28/17 20:00 95 Nasal Cannula 2.00 09/28/17 18:00 90 3 151/67 (95) 95 09/28/17 18:00 90 09/28/17 17:00 90 9 144/67 (92) 94 09/28/17 16:00 98 Nasal Cannula 3.00 09/28/17 16:00 85 09/28/17 16:00 98.4 85 4 157/72 (100) 97 09/28/17 15:00 83 4 168/74 (105) 96 09/28/17 14:53 84 18 169/71 (103) 94 09/28/17 14:52 84 0 169/71 (103) 93 09/28/17 13:22 98.4 85 28 158/68 (98) 90 09/28/17 12:00 98.3 85 9 149/68 (95) 96 09/28/17 12:00 85 09/28/17 12:00 96 Nasal Cannula 3.00 09/28/17 11:00 84 17 159/69 (99) 94 09/28/17 10:00 85 09/28/17 10:00 85 16 155/69 (97) 96 I/O 09/28/17 09/28/17 09/28/17 09/29/17 09/29/17 09/29/17 07:00 15:00 23:00 07:00 15:00 23:00 Intake Total 240 ml 763 ml 240 ml Output Total 1250 ml 875 ml 900 ml Balance -1010 ml -112 ml -660 ml Intake Oral 240 ml 663 ml 240 ml IV Total 100 ml Output Urine Total 1250 ml 875 ml 900 ml # Bowel Movements 0 0 Physical Exam GENERAL: In NAD SKIN: Warm and dry. HEAD: Normocephalic. EYES: No scleral icterus. No injection or drainage. NECK: Supple, trachea midline. No JVD or lymphadenopathy. CARDIOVASCULAR: Regular rate and rhythm, without murmurs, gallops, or rubs. RESPIRATORY: Breath sounds equal bilaterally. No accessory muscle use. Clear. GASTROINTESTINAL: Abdomen soft, non-tender, nondistended. MUSCULOSKELETAL: No cyanosis, bilat LE edema. Laboratory Laboratory Tests Test 09/28/17 13:25 Pleural Fluid pH 7.5 Pleural Fluid WBC 188 /MM3 Pleural Fluid RBC 840 /MM3 Pleural Fluid Neutrophils 91 % Pleural Fluid Monocytes 5 % Pleural Fluid Histiocytes 4 % Assessment and Plan Problem List: (1) Congestive heart failure ICD Codes: I50.9 - Heart failure, unspecified Status: Acute (2) Pleural effusion ICD Codes: J90 - Pleural effusion, not elsewhere classified (3) CAD (coronary artery disease) ICD Codes: I25.10 - Atherosclerotic heart disease of [place] coronary artery without angina pectoris Status: Chronic (4) Diabetes mellitus with peripheral vascular disease ICD Codes: E11.51 - Type 2 diabetes mellitus with diabetic peripheral angiopathy without gangrene Status: Chronic (5) CONOR (acute kidney injury) ICD Codes: N17.9 - Acute kidney failure, unspecified Status: Acute (6) HTN (hypertension) ICD Codes: I10 - Essential (primary) hypertension Status: Chronic (7) Pneumonia ICD Codes: J18.9 - Pneumonia, unspecified organism Assessment and Plan Feels better after thoracenteses, wants to go home. Still fluid overloaded, continue IV diuresis, closely monitor renal fx (creatinine increased). She has LV diastolic dysfunction, recent echo showed preserved LV systolic fx. No evidence of ACS at this time. Increase activity. Transfer to floor with tele. Problem Qualifiers (1) Congestive heart failure: Qualified Codes: I50.23 - Acute on chronic systolic (congestive) heart failure Dunia Reddy MD Sep 29, 2017 09:25
[2017-09-29] MEDS: HEPARIN SODIUM - SQ 10,000 UNITS/ML VIAL SQ SCH ×2 (10:20→23:18)
[2017-09-29] MEDS: cefTRIAXone INJ 1,000 MG in SODIUM CHLORIDE 0.9% INJ 100 ML IV SCH (11:51)
[2017-09-29] MEDS: LEVOFLOXACIN 750 MG TAB PO SCH (11:51)
--- NOTE | 2017-09-29 12:27 | HHI.PR ---
Subjective Remarks Follow-up for congestive heart failure, respiratory failure, acute kidney disease. Patient is currently doing well. Sitting in her chair. Her breathing is much improved. She underwent left and right-sided thoracentesis in the last 2 days. No fever or chills. Objective Vitals Vital Signs Date Time Temp Pulse Resp B/P (MAP) Pulse Ox O2 Delivery O2 Flow Rate FiO2 09/29/17 12:00 62 09/29/17 12:00 98.1 62 8 155/74 (101) 97 09/29/17 12:00 97 Nasal Cannula 2.00 09/29/17 11:00 85 14 162/78 (106) 97 09/29/17 10:00 86 15 162/72 (102) 96 09/29/17 10:00 86 09/29/17 09:00 85 20 170/79 (109) 97 09/29/17 08:20 96 Nasal Cannula 2.00 09/29/17 08:00 95 Nasal Cannula 2.00 09/29/17 08:00 98.0 86 8 171/78 (109) 95 09/29/17 08:00 86 09/29/17 07:00 85 7 165/76 (105) 95 09/29/17 06:00 84 09/29/17 04:28 98 Nasal Cannula 4.00 09/29/17 04:00 98.7 85 15 174/77 (109) 99 09/29/17 04:00 85 09/29/17 04:00 95 Nasal Cannula 2.00 09/29/17 02:00 85 09/29/17 00:00 95 Nasal Cannula 2.00 09/29/17 00:00 98.5 86 16 168/73 (104) 96 09/29/17 00:00 86 09/28/17 23:24 96 Nasal Cannula 4.00 09/28/17 22:21 96 Nasal Cannula 4.00 09/28/17 22:00 84 09/28/17 20:00 98.6 89 18 152/68 (96) 95 09/28/17 20:00 89 09/28/17 20:00 95 Nasal Cannula 2.00 09/28/17 18:00 90 3 151/67 (95) 95 09/28/17 18:00 90 09/28/17 17:00 90 9 144/67 (92) 94 09/28/17 16:00 98 Nasal Cannula 3.00 09/28/17 16:00 85 09/28/17 16:00 98.4 85 4 157/72 (100) 97 09/28/17 15:00 83 4 168/74 (105) 96 09/28/17 14:53 84 18 169/71 (103) 94 09/28/17 14:52 84 0 169/71 (103) 93 09/28/17 13:22 98.4 85 28 158/68 (98) 90 I/O 09/28/17 09/28/17 09/28/17 09/29/17 09/29/17 09/29/17 07:00 15:00 23:00 07:00 15:00 23:00 Intake Total 240 ml 763 ml 240 ml Output Total 1250 ml 875 ml 900 ml Balance -1010 ml -112 ml -660 ml Intake Oral 240 ml 663 ml 240 ml IV Total 100 ml Output Urine Total 1250 ml 875 ml 900 ml # Bowel Movements 0 0 Result Diagram: 09/27/17 0340 09/28/17 0457 Imaging Last Impressions Thoracentesis Ultrasound 09/28/17 0000 Signed Impressions: Service Date/Time: Thursday, September 28, 2017 12:36 - CONCLUSION: Uncomplicated ultrasound guided thoracentesis. Linwood Chadwick MD Chest X-Ray 09/28/17 0000 Signed Impressions: Service Date/Time: Thursday, September 28, 2017 13:45 - CONCLUSION: 1. No pneumothorax status-post left thoracentesis. 2. Small right pleural effusion. 3. The heart is enlarged. Linwood Chadwick MD Chest CT 09/24/17 0000 Signed Impressions: Service Date/Time: Sunday, September 24, 2017 20:50 - CONCLUSION: 1. Moderate size bilateral pleural effusions, slightly increased compared with February. Moderate anasarca. 2. Compressive and subsegmental atelectasis in both lungs. 3. Moderate to severe coronary calcifications. 4. Negative for thoracic aortic aneurysm. No acute findings in the upper abdomen. Amadou Salazar MD Objective Remarks GENERAL: Alert, NAD. SKIN: Warm and dry. HEAD: Normocephalic. EYES: No scleral icterus. No injection or drainage. NECK: Supple, trachea midline. No JVD or lymphadenopathy. CARDIOVASCULAR: Regular rate and rhythm without murmurs, gallops, or rubs. RESPIRATORY: Breath sounds equal bilaterally. No accessory muscle use. GASTROINTESTINAL: Abdomen soft, non-tender, nondistended. MUSCULOSKELETAL: No cyanosis. Lower extremity edema 2+. Upper extremity edema much improved. BACK: Nontender without obvious deformity. No CVA tenderness. Procedures US guided right sided thoracentesis on 09/27/2017. 08/11/2017 Echo (Prior admission). The left ventricular systolic function is normal with an estimated ejection fraction in the range of 60-65%. Normal left ventricular size. Mild concentric left ventricular hypertrophy. No regional wall motion abnormalities are present. Structurally normal mitral valve. Trace mitral regurgitation. A/P Assessment and Plan Ms. Maynard is a 66-year-old female with a history of coronary artery disease, COPD, CK D, congestive heart failure who presented to the emergency department on 09/24/2017 due to shortness of breath. BNP on arrival 9:30. Imaging studies show bilateral pleural effusion. - Acute exacerbation of diastolic congestive heart failure - Acute respiratory failure hypoxic - Bilateral pleural effusion - Cardiology and pulmonology following. - Continue Lasix 40 mg IV twice a day. - Patient underwent right and left-sided thoracentesis on 09/27/2000 710 . - Currently on nasal cannula. - Possible healthcare associated pneumonia. - Atelectasis - COPD - Patient was in the hospital within last 2 months. Chest x-ray from 2016 shows bibasilar consolidation as well as moderate effusions. - We'll switch patient's antibiotics to Ceftriaxone and Levaquin 750 mg renally adjusted. Discontinue vancomycin and Zosyn. - Continue Ceftriaxone and Levaquin while patient in the ICU. Consider switching to Levaquin PO only once patient is out of ICU to the med-surg floor. - Continue incentive spirometry. Continue breathing treatments. - Solu-Medrol 40 mg every 8 hours. - Coronary artery disease - Continue Prasugrel 10 mg daily, aspirin 81 mg daily, isosorbide mononitrate 60 mg daily - Also continue metoprolol 50 mg twice a day, lisinopril 5 mg daily. - Acute on chronic kidney disease - Creatinine 2.08 --> 2.22. We'll obtain BMP in the morning. - Diabetes mellitus - We'll adjust Levemir to Levemir 12 units twice a day. Continue sliding scale insulin. - Continue pre-meal insulin Aspart 7 units TIDAC. - Urinary tract infection with Proteus mirabilis - Continue Ceftriaxone. - We'll transfer patient to the medical floor without telemetry. Full code. Heparin subcutaneous. Jaquelin Bender DO Sep 29, 2017 12:27 pm
[2017-09-29] MEDS: ACETAMINOPHEN/HYDROcodone 325 MG/5 MG TAB PO PRN (19:36)
--- NOTE | 2017-09-29 20:09 | HHI.PR ---
Subjective Remarks 66 YOWF with COPD,PL eff Lung infilt, Resp Insuff On VM Had Thoracentesis, 1400 cc fluid removed No Fever Pl Fliuid cytology Negative Objective Vital Signs Vital Signs Date Time Temp Pulse Resp B/P (MAP) Pulse Ox O2 Delivery O2 Flow Rate FiO2 09/29/17 16:00 98.1 86 13 168/79 (108) 99 09/29/17 16:00 86 09/29/17 16:00 99 Nasal Cannula 2.00 Humidified 09/29/17 12:00 62 09/29/17 12:00 98.1 62 8 155/74 (101) 97 09/29/17 12:00 97 Nasal Cannula 2.00 09/29/17 11:00 85 14 162/78 (106) 97 09/29/17 10:00 86 15 162/72 (102) 96 09/29/17 10:00 86 09/29/17 09:00 85 20 170/79 (109) 97 09/29/17 08:20 96 Nasal Cannula 2.00 09/29/17 08:00 95 Nasal Cannula 2.00 09/29/17 08:00 98.0 86 8 171/78 (109) 95 09/29/17 08:00 86 09/29/17 07:00 85 7 165/76 (105) 95 09/29/17 06:00 84 09/29/17 04:28 98 Nasal Cannula 4.00 09/29/17 04:00 98.7 85 15 174/77 (109) 99 09/29/17 04:00 85 09/29/17 04:00 95 Nasal Cannula 2.00 09/29/17 02:00 85 09/29/17 00:00 95 Nasal Cannula 2.00 09/29/17 00:00 98.5 86 16 168/73 (104) 96 09/29/17 00:00 86 09/28/17 23:24 96 Nasal Cannula 4.00 09/28/17 22:21 96 Nasal Cannula 4.00 09/28/17 22:00 84 I/O 09/28/17 09/28/17 09/28/17 09/29/17 09/29/17 09/29/17 07:00 15:00 23:00 07:00 15:00 23:00 Intake Total 240 ml 763 ml 240 ml 811 ml Output Total 1250 ml 875 ml 900 ml 750 ml Balance -1010 ml -112 ml -660 ml 61 ml Intake Oral 240 ml 663 ml 240 ml 811 ml IV Total 100 ml Output Urine Total 1250 ml 875 ml 900 ml 750 ml # Bowel Movements 0 0 1 Result Diagram: 09/27/17 0340 09/28/17 0457 Objective Remarks GENERAL: Elderly WF, mild sob SKIN: Warm and dry. HEAD: Normocephalic. EYES: No scleral icterus. No injection or drainage. NECK: Supple, trachea midline. No JVD or lymphadenopathy. CARDIOVASCULAR: Regular rate and rhythm without murmurs, gallops, or rubs. RESPIRATORY: Breath sounds equal bilaterally. No accessory muscle use. GASTROINTESTINAL: Abdomen soft, non-tender, nondistended. MUSCULOSKELETAL: No cyanosis, or edema. BACK: Nontender without obvious deformity. No CVA tenderness. A/P Assessment and Plan Pleural eff, s/p TC COPD Resp insuff DM PLAN: Supplement [address] fluid results Cont Abx Monitor Aaron Matta MD Sep 29, 2017 20:09
[2017-09-29] MEDS: INSULIN DETEMIR 100 UNITS/ML VIAL SQ SCH (20:45)
[2017-09-29] MEDS: NIFEdipine 60 MG SUSTAINED RELEASE TAB PO SCH (20:46)
[2017-09-30] VITALS (9 sets, daily range): BP systolic 129–170; BP diastolic 63–80; PULSE 66–91; RESP 13–25; TEMP 97.5–98.1; O2SAT 92–97
[2017-09-30] MEDS: methylPREDNISolone SOD SUCC 40 MG/1 ML VIAL IV PUSH SCH ×3 (02:47→17:38)
[2017-09-30] MEDS: RESP: ALBUTEROL 2.5 MG/IPRATROPIUM 0.5 MG NEB (SCH) NEB ×4 (03:11→21:48)
[2017-09-30] MEDS: CHLORHEXIDINE GLUCONATE 2 % 1 PACK (2 CLOTHS)(taper/protocol) TOPICAL SCH (04:00)
[2017-09-30] MEDS: ISOSORBIDE MONONITRATE 60 MG TAB PO SCH (06:35)
[2017-09-30] MEDS: INSULIN ASPART SUPPLEMENTAL SCALE SQ SCH ×4 (08:18→20:39)
[2017-09-30] MEDS: INSULIN ASPART 1,000 UNITS/10 ML VIAL SQ SCH ×3 (08:18→17:00)
[2017-09-30] MEDS: LISINOPRIL 5 MG TAB PO SCH (08:19)
[2017-09-30] MEDS: SODIUM CHLORIDE 0.9% FLUSH 10 ML FLUSH IV FLUSH PRN (08:19)
[2017-09-30] MEDS: NIFEdipine 60 MG SUSTAINED RELEASE TAB PO SCH ×2 (08:19→20:39)
[2017-09-30] MEDS: PRASUGREL 10 MG TAB PO SCH (08:19)
[2017-09-30] MEDS: METOPROLOL TARTRATE 50 MG TAB PO SCH ×2 (08:19→20:39)
[2017-09-30] MEDS: FUROSEMIDE 40 MG/4 ML VIAL IV PUSH SCH ×2 (08:19→17:37)
[2017-09-30] MEDS: ASPIRIN 81 MG CHEW TAB CHEW SCH (08:19)
[2017-09-30] MEDS: SODIUM CHLORIDE 0.9% FLUSH 10 ML FLUSH IV FLUSH SCH ×2 (08:19→20:41)
[2017-09-30] MEDS: NYSTATIN 100,000 U/GM PWD 15 GM BTL TOPICAL SCH ×2 (08:20→20:40)
[2017-09-30] MEDS: INSULIN DETEMIR 100 UNITS/ML VIAL SQ SCH ×2 (08:20→20:39)
[2017-09-30] MEDS: HEPARIN SODIUM - SQ 10,000 UNITS/ML VIAL SQ SCH ×2 (10:30→20:50)
[2017-09-30 10:37] LABS: BICARBONATE 22.8 MEQ/L (21.0-32.0); POTASSIUM 4.4 MEQ/L (3.5-5.1)
--- NOTE | 2017-09-30 11:35 | PD.CARD.PN ---
Subjective Subjective Remarks No CP or SOB. Feels better. Still w significant edema. Objective Medications Current Medications Medications (Trade) Dose Ordered Sig/Marie Route Start Time Stop Time Status Last Admin (NS Flush) 2 ml UNSCH PRN IV FLUSH 09/24/17 22:45 09/30/17 08:19 (NS Flush) 2 ml BID IV FLUSH 09/25/17 09:00 09/30/17 08:19 (Heparin Inj) 5,000 units Q12H SQ 09/24/17 22:45 09/30/17 10:30 (Narcan Inj) 0.4 mg UNSCH PRN IV PUSH 09/24/17 22:45 (Milk Of Magnesia Liq) 30 ml Q12H PRN PO 09/24/17 22:45 (Senokot) 17.2 mg Q12H PRN PO 09/24/17 22:45 (Dulcolax Supp) 10 mg DAILY PRN RECTAL 09/24/17 22:45 (Lactulose Liq) 30 ml DAILY PRN PO 09/24/17 22:45 (Aspirin Chew) 81 mg DAILY CHEW 09/25/17 09:00 09/30/17 08:19 (Imdur) 60 mg DAILY@0700 PO 09/25/17 07:00 09/30/17 06:35 (Prinivil) 5 mg DAILY PO 09/25/17 09:00 09/30/17 08:19 (Lopressor) 50 mg BID PO 09/25/17 09:00 09/30/17 08:19 (Effient) 10 mg DAILY PO 09/25/17 12:00 09/30/17 08:19 (NovoLOG SUPPLEMENTAL SCALE) 1 ACHS SLIDING SCALE SQ 09/25/17 08:00 09/30/17 08:18 (Mycostatin Powder) 1 applic Q12HR TOPICAL 09/25/17 09:00 09/30/17 08:20 ([place] 5-325 Mg) 1 tab Q4H PRN PO 09/25/17 22:00 09/29/17 19:36 (Duoneb Neb) 1 ampule Q2HR NEB PRN NEB 09/26/17 04:30 09/26/17 04:27 (Lasix Inj) 40 mg BID@,18 IV PUSH 09/26/17 18:00 09/30/17 08:19 (SoluMEDROL INJ) 40 mg Q8H IV PUSH 09/26/17 18:00 09/30/17 10:30 Miscellaneous Information Patient in critical care unit? Ass... [id number] .XX 09/26/17 21:15 09/26/17 21:12 (Chlorhexidine 2% Cloth) 3 pack DAILY@04 TOPICAL 09/27/17 04:00 10/01/17 04:01 09/30/17 04:00 (Chlorhexidine 2% Cloth) 3 pack UNSCH PRN TOPICAL 09/26/17 21:15 10/01/17 21:11 (Duoneb Neb) 1 ampule Q6HR NEB NEB 09/27/17 16:00 09/30/17 09:18 Ceftriaxone Sodium 1000 mg/ Sodium Chloride 100 ml @ 200 mls/hr Q24H IV 09/27/17 12:00 09/29/17 11:51 (Levaquin) 750 mg Q48H PO 09/27/17 13:00 09/29/17 11:51 (NovoLOG INJ) 7 units TIDAC SQ 09/29/17 17:00 09/30/17 08:18 (Levemir Inj) 12 units BID SQ 09/29/17 21:00 09/30/17 08:20 (Procardia Xl) 60 mg Q12HR PO 09/29/17 21:00 09/30/17 08:19 Vital Signs / I&O Vital Signs Date Time Temp Pulse Resp B/P (MAP) Pulse Ox O2 Delivery O2 Flow Rate FiO2 09/30/17 09:19 96 Nasal Cannula 2.00 09/30/17 08:00 98.0 70 13 167/75 (105) 97 09/30/17 08:00 70 09/30/17 08:00 97 Nasal Cannula 2.00 Humidified 09/30/17 04:00 Nasal Cannula 2.00 50 Humidified 09/30/17 04:00 98.1 88 19 170/80 (110) 97 09/30/17 04:00 88 09/30/17 00:00 91 09/30/17 00:00 Nasal Cannula 2.00 50 Humidified 09/30/17 00:00 98.1 91 25 167/75 (105) 97 09/29/17 21:27 97 Nasal Cannula 2.00 09/29/17 20:00 Nasal Cannula 2.00 50 Humidified 09/29/17 20:00 92 09/29/17 20:00 97.9 92 18 171/79 (109) 96 09/29/17 16:00 98.1 86 13 168/79 (108) 99 09/29/17 16:00 86 09/29/17 16:00 99 Nasal Cannula 2.00 Humidified 09/29/17 12:00 62 09/29/17 12:00 98.1 62 8 155/74 (101) 97 09/29/17 12:00 97 Nasal Cannula 2.00 I/O 09/29/17 09/29/17 09/29/17 09/30/17 09/30/17 09/30/17 07:00 15:00 23:00 07:00 15:00 23:00 Intake Total 240 ml 811 ml 240 ml Output Total 900 ml 750 ml 1000 ml Balance -660 ml 61 ml -760 ml Intake Oral 240 ml 811 ml 240 ml Output Urine Total 900 ml 750 ml 1000 ml Stool Total 0 ml # Bowel Movements 0 1 Physical Exam GENERAL: In NAD SKIN: Warm and dry. HEAD: Normocephalic. EYES: No scleral icterus. No injection or drainage. NECK: Supple, trachea midline. No JVD or lymphadenopathy. CARDIOVASCULAR: Regular rate and rhythm, without murmurs, gallops, or rubs. RESPIRATORY: Breath sounds equal bilaterally. No accessory muscle use. Clear. GASTROINTESTINAL: Abdomen soft, non-tender, nondistended. MUSCULOSKELETAL: No cyanosis, bilat LE edema. Laboratory Laboratory Tests Test 09/30/17 08:03 Blood Urea Nitrogen 56 MG/DL Creatinine 2.31 MG/DL Random Glucose 221 MG/DL Calcium Level 9.1 MG/DL Sodium Level 143 MEQ/L Potassium Level 4.4 MEQ/L Chloride Level 109 MEQ/L Carbon Dioxide Level 22.8 MEQ/L Anion Gap 11 MEQ/L Estimat Glomerular Filtration Rate 21 ML/MIN Assessment and Plan Problem List: (1) Congestive heart failure ICD Codes: I50.9 - Heart failure, unspecified Status: Acute (2) Pleural effusion ICD Codes: J90 - Pleural effusion, not elsewhere classified (3) CAD (coronary artery disease) ICD Codes: I25.10 - Atherosclerotic heart disease of [place] coronary artery without angina pectoris Status: Chronic (4) Diabetes mellitus with peripheral vascular disease ICD Codes: E11.51 - Type 2 diabetes mellitus with diabetic peripheral angiopathy without gangrene Status: Chronic (5) CONOR (acute kidney injury) ICD Codes: N17.9 - Acute kidney failure, unspecified Status: Acute (6) HTN (hypertension) ICD Codes: I10 - Essential (primary) hypertension Status: Chronic (7) Pneumonia ICD Codes: J18.9 - Pneumonia, unspecified organism Assessment and Plan No new cardiac issues. Feels better, but still fluid overloaded, continue IV diuresis, closely monitor renal fx (creatinine increased). She has LV diastolic dysfunction, recent echo showed preserved LV systolic fx. No evidence of ACS at this time. Increase activity, recommend PT. Transfer to floor with tele. Problem Qualifiers (1) Congestive heart failure: Qualified Codes: I50.23 - Acute on chronic systolic (congestive) heart failure Dunia Reddy MD Sep 30, 2017 11:35
[2017-09-30] MEDS: cefTRIAXone INJ 1,000 MG in SODIUM CHLORIDE 0.9% INJ 100 ML IV SCH (11:47)
[2017-09-30] MEDS: ACETAMINOPHEN/HYDROcodone 325 MG/5 MG TAB PO PRN ×2 (15:10→22:33)
--- NOTE | 2017-09-30 18:27 | HHI.PR ---
Subjective Remarks Patient seen today around 4 PM. Says that shortness of breath much improved from days prior. Denies any chest pain. Objective Vital Signs Date Time Temp Pulse Resp B/P (MAP) Pulse Ox O2 Delivery O2 Flow Rate FiO2 09/30/17 15:44 96 Nasal Cannula 2.00 50 Humidified 09/30/17 15:30 97.5 82 18 138/64 (88) 93 09/30/17 12:00 66 09/30/17 12:00 97.7 66 21 129/63 (85) 94 09/30/17 12:00 94 Nasal Cannula 2.00 Humidified 09/30/17 09:19 96 Nasal Cannula 2.00 09/30/17 08:00 98.0 70 13 167/75 (105) 97 09/30/17 08:00 70 09/30/17 08:00 97 Nasal Cannula 2.00 Humidified 09/30/17 04:00 Nasal Cannula 2.00 50 Humidified 09/30/17 04:00 98.1 88 19 170/80 (110) 97 09/30/17 04:00 88 09/30/17 00:00 91 09/30/17 00:00 Nasal Cannula 2.00 50 Humidified 09/30/17 00:00 98.1 91 25 167/75 (105) 97 09/29/17 21:27 97 Nasal Cannula 2.00 09/29/17 20:00 Nasal Cannula 2.00 50 Humidified 09/29/17 20:00 92 09/29/17 20:00 97.9 92 18 171/79 (109) 96 I/O 09/29/17 09/29/17 09/29/17 09/30/17 09/30/17 09/30/17 07:00 15:00 23:00 07:00 15:00 23:00 Intake Total 240 ml 811 ml 240 ml 542 ml Output Total 900 ml 750 ml 1000 ml 325 ml Balance -660 ml 61 ml -760 ml 217 ml Intake Oral 240 ml 811 ml 240 ml 442 ml IV Total 100 ml Output Urine Total 900 ml 750 ml 1000 ml 325 ml Stool Total 0 ml # Bowel Movements 0 1 Result Diagram: 09/27/17 0340 09/30/17 0803 Imaging Last Impressions Thoracentesis Ultrasound 09/28/17 0000 Signed Impressions: Service Date/Time: Thursday, September 28, 2017 12:36 - CONCLUSION: Uncomplicated ultrasound guided thoracentesis. Linwood Chadwick MD Chest X-Ray 09/28/17 0000 Signed Impressions: Service Date/Time: Thursday, September 28, 2017 13:45 - CONCLUSION: 1. No pneumothorax status-post left thoracentesis. 2. Small right pleural effusion. 3. The heart is enlarged. Linwood Chadwick MD Chest CT 09/24/17 0000 Signed Impressions: Service Date/Time: Sunday, September 24, 2017 20:50 - CONCLUSION: 1. Moderate size bilateral pleural effusions, slightly increased compared with February. Moderate anasarca. 2. Compressive and subsegmental atelectasis in both lungs. 3. Moderate to severe coronary calcifications. 4. Negative for thoracic aortic aneurysm. No acute findings in the upper abdomen. Amadou Salazar MD Objective Remarks GENERAL: Patient lying in bed. Appears comfortable. Morbidly obese SKIN: Warm and dry. HEAD: Normocephalic. EYES: No scleral icterus. No injection or drainage. NECK: Supple, trachea midline. Unable to assess JVD secondary to body habitus. CARDIOVASCULAR: Regular rate and rhythm without murmurs, gallops, or rubs. RESPIRATORY: Breath sounds equal bilaterally. No accessory muscle use. GASTROINTESTINAL: Abdomen soft, non-tender, nondistended. MUSCULOSKELETAL: No cyanosis. 2+ peripheral edema in very large bilateral legs. No erythema. BACK: Nontender without obvious deformity. No CVA tenderness. A/P Assessment and Plan Ms. Maynard is a 66-year-old female with a history of coronary artery disease, COPD, CK D, congestive heart failure who presented to the emergency department on 09/24/2017 due to shortness of breath. BNP on arrival 9:30. Imaging studies show bilateral pleural effusion. His undergone bilateral thoracentesis with marked improvement shortness of breath. Continuing to diuresis. Creatinine has been increasing. //Acute exacerbation of diastolic congestive heart failure //Acute respiratory failure hypoxic //Bilateral pleural effusion - Cardiology and pulmonology following. - Continue Lasix 40 mg IV twice a day. - Patient underwent right and left-sided thoracentesis on 09/27/2000 710 . - Currently on nasal cannula. //Acute on chronic renal failure. Baseline creatinine around 1.8. //Suspected nephrotic syndrome. Creatinine worsening. Control diabetes. Consult nephrology. -09/30. Creatinine 2.3. Worsening BUN 56. Protein above detectable limit on urinalysis from admission. Further labs ordered, consult nephrology. //Possible healthcare associated pneumonia. //Atelectasis //COPD - Patient was in the hospital within last 2 months. Chest x-ray from 2016 shows bibasilar consolidation as well as moderate effusions. - We'll switch patient's antibiotics to Ceftriaxone and Levaquin 750 mg renally adjusted. Discontinue vancomycin and Zosyn. - Continue Ceftriaxone and Levaquin while patient in the ICU. Consider switching to Levaquin PO only once patient is out of ICU to the med-surg floor. - Continue incentive spirometry. Continue breathing treatments. -09/30. Discontinue IV Solu-Medrol. Tapered down to prednisone. Continue to monitor. Appreciate pulmonology assistance. //Coronary artery disease - Continue Prasugrel 10 mg daily, aspirin 81 mg daily, isosorbide mononitrate 60 mg daily - Also continue metoprolol 50 mg twice a day. Hold lisinopril. //Diabetes mellitus - We'll adjust Levemir to Levemir 12 units twice a day. Continue sliding scale insulin. - Continue pre-meal insulin Aspart 7 units TIDAC. -Taper steroids. //Urinary tract infection with Proteus mirabilis - Continue Ceftriaxone. Full code. Heparin subcutaneous. Discharge Planning Continue inpatient. Pending nephrology evaluation. PT recommends rehabilitation. Expect discharge in the next 2 days. Timi Koehler MD Sep 30, 2017 18:27
[2017-09-30 19:10] LABS: BACTERIA, URINE RARE /hpf; BLOOD, URINE SMALL (NEG); COMMENT (UR) CULT NOT INDICATED; CULTURE IF INDICATED CULT NOT INDICATED; GLUCOSE,URINE 150 mg/dL (NEG); HYALINE CAST, URINE 6 /lpf (RARE); KETONE, URINE NEG (NEG); NITRITE,URINE NEG (NEG); PH, URINE 5.5 (5.0-8.5); SQUAMOUS EPITHELIAL CELL URINE 1 /hpf (0-5); URINE COLOR LIGHT-YELLOW (YELLW/STRAW)
--- NOTE | 2017-09-30 19:52 | HHI.PR ---
Subjective Remarks 66 YOWF with COPD,PL eff Lung infilt, Resp Insuff Had Thoracentesis, 1400 cc fluid removed No Fever Pl Fliuid cytology Negative Objective Vital Signs Vital Signs Date Time Temp Pulse Resp B/P (MAP) Pulse Ox O2 Delivery O2 Flow Rate FiO2 09/30/17 15:44 96 Nasal Cannula 2.00 50 Humidified 09/30/17 15:30 97.5 82 18 138/64 (88) 93 09/30/17 12:00 66 09/30/17 12:00 97.7 66 21 129/63 (85) 94 09/30/17 12:00 94 Nasal Cannula 2.00 Humidified 09/30/17 09:19 96 Nasal Cannula 2.00 09/30/17 08:00 98.0 70 13 167/75 (105) 97 09/30/17 08:00 70 09/30/17 08:00 97 Nasal Cannula 2.00 Humidified 09/30/17 04:00 Nasal Cannula 2.00 50 Humidified 09/30/17 04:00 98.1 88 19 170/80 (110) 97 09/30/17 04:00 88 09/30/17 00:00 91 09/30/17 00:00 Nasal Cannula 2.00 50 Humidified 09/30/17 00:00 98.1 91 25 167/75 (105) 97 09/29/17 21:27 97 Nasal Cannula 2.00 09/29/17 20:00 Nasal Cannula 2.00 50 Humidified 09/29/17 20:00 92 09/29/17 20:00 97.9 92 18 171/79 (109) 96 I/O 09/29/17 09/29/17 09/29/17 09/30/17 09/30/17 09/30/17 07:00 15:00 23:00 07:00 15:00 23:00 Intake Total 240 ml 811 ml 240 ml 542 ml 240 ml Output Total 900 ml 750 ml 1000 ml 325 ml Balance -660 ml 61 ml -760 ml 217 ml 240 ml Intake Oral 240 ml 811 ml 240 ml 442 ml 240 ml IV Total 100 ml Output Urine Total 900 ml 750 ml 1000 ml 325 ml Stool Total 0 ml # Bowel Movements 0 1 Result Diagram: 09/27/17 0340 09/30/17 0803 Objective Remarks GENERAL: Elderly WF, mild sob SKIN: Warm and dry. HEAD: Normocephalic. EYES: No scleral icterus. No injection or drainage. NECK: Supple, trachea midline. No JVD or lymphadenopathy. CARDIOVASCULAR: Regular rate and rhythm without murmurs, gallops, or rubs. RESPIRATORY: Breath sounds equal bilaterally. No accessory muscle use. GASTROINTESTINAL: Abdomen soft, non-tender, nondistended. MUSCULOSKELETAL: No cyanosis, or edema. BACK: Nontender without obvious deformity. No CVA tenderness. A/P Assessment and Plan Pleural eff, s/p TC COPD Resp insuff DM PLAN: Supplement 02 with NC Check pl fluid results Cont Abx Monitor BS Pred 20 mg po bid Aaron Blankenship MD Sep 30, 2017 19:52
[2017-09-30] MEDS: predniSONE 20 MG TAB PO SCH (20:38)
--- NOTE | 2017-09-30 21:14 | RADRPT ---
EXAM DATE/TIME: 09/30/2017 20:15 [facility] COMPARISON: US KIDNEY/RENAL/BLADDER, August 10, 2016, 8:31. INDICATIONS : Increased lab values. MEDICAL HISTORY : Myocardial infarction. Chronic obstructive pulmonary disease. Congestive heart failure. Valvular hear t disease. Hypertension. A-fib. Hiatal hernia. Renal disease. Diabetes. MRSA. C-diff. SURGICAL HISTORY : Tonsillectomy. Coronary artery stent. section. Angioplasty. Hysterectomy. Appendectomy. Back surgery. ENCOUNTER: Subsequent ACUITY: 1 day PAIN SCORE: 3/10 LOCATION: Bilateral flank MEASUREMENTS: RIGHT KIDNEY: 10.6 x 4.1 x 3.8 cm LEFT KIDNEY: 10.1 x 4.9 x 4.9 cm FINDINGS: Visualization is limited by the patient's body habitus and limited mobility. RIGHT KIDNEY: Renal cortex is normal in thickness and echotexture. No hydronephrosis, stone, or mass. A right-maty ed pleural effusion is noted. LEFT KIDNEY: Renal cortex is normal in thickness and echotexture. No hydronephrosis, stone, or mass. BLADDER: A Lim catheter is present. CONCLUSION: 1. No evidence of hydronephrosis. 2. Right pleural effusion. 3. Lim catheter in bladder. Nura Niño MD on September 30, 2017 at 21:11 Board Certified Radiologist. This report was verified electronically.
[2017-09-30] MEDS: ALBUMIN 25% INJ 100 ML IV SCH (22:21)
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
[2017-10-01] VITALS (10 sets, daily range): BP systolic 133–154; BP diastolic 62–69; PULSE 82–93; RESP 20; TEMP 97.9–99.2; O2SAT 89–96
[2017-10-01] MEDS: CHLORHEXIDINE GLUCONATE 2 % 1 PACK (2 CLOTHS)(taper/protocol) TOPICAL SCH (02:55)
[2017-10-01] MEDS: RESP: ALBUTEROL 2.5 MG/IPRATROPIUM 0.5 MG NEB (SCH) NEB ×2 (04:24→09:50)
[2017-10-01] MEDS: ISOSORBIDE MONONITRATE 60 MG TAB PO SCH (06:21)
[2017-10-01] MEDS: INSULIN ASPART SUPPLEMENTAL SCALE SQ SCH ×4 (09:44→21:41)
[2017-10-01] MEDS: INSULIN ASPART 1,000 UNITS/10 ML VIAL SQ SCH ×3 (09:44→17:55)
[2017-10-01] MEDS: INSULIN DETEMIR 100 UNITS/ML VIAL SQ SCH ×2 (09:45→21:00)
[2017-10-01] MEDS: NIFEdipine 60 MG SUSTAINED RELEASE TAB PO SCH ×2 (09:46→21:40)
[2017-10-01] MEDS: predniSONE 20 MG TAB PO SCH ×2 (09:46→21:40)
[2017-10-01] MEDS: ASPIRIN 81 MG CHEW TAB CHEW SCH (09:47)
[2017-10-01] MEDS: NYSTATIN 100,000 U/GM PWD 15 GM BTL TOPICAL SCH ×2 (09:47→21:39)
[2017-10-01] MEDS: METOPROLOL TARTRATE 50 MG TAB PO SCH ×2 (09:47→21:40)
[2017-10-01] MEDS: FUROSEMIDE 40 MG/4 ML VIAL IV PUSH SCH ×2 (09:47→17:55)
[2017-10-01] MEDS: SODIUM CHLORIDE 0.9% FLUSH 10 ML FLUSH IV FLUSH SCH ×2 (09:47→21:41)
[2017-10-01] MEDS: ALBUMIN 25% INJ 100 ML IV SCH ×2 (09:48→21:41)
--- NOTE | 2017-10-01 09:54 | PD.CARD.PN ---
Subjective Subjective Remarks No CP, mild SOB this AM. Still has significant edema. Objective Medications Current Medications Medications (Trade) Dose Ordered Sig/Marie Route Start Time Stop Time Status Last Admin (NS Flush) 2 ml UNSCH PRN IV FLUSH 09/24/17 22:45 09/30/17 08:19 (NS Flush) 2 ml BID IV FLUSH 09/25/17 09:00 10/01/17 09:47 (Heparin Inj) 5,000 units Q12H SQ 09/24/17 22:45 09/30/17 20:50 (Narcan Inj) 0.4 mg UNSCH PRN IV PUSH 09/24/17 22:45 (Milk Of Magnesia Liq) 30 ml Q12H PRN PO 09/24/17 22:45 (Senokot) 17.2 mg Q12H PRN PO 09/24/17 22:45 (Dulcolax Supp) 10 mg DAILY PRN RECTAL 09/24/17 22:45 (Lactulose Liq) 30 ml DAILY PRN PO 09/24/17 22:45 (Aspirin Chew) 81 mg DAILY CHEW 09/25/17 09:00 10/01/17 09:47 (Imdur) 60 mg DAILY@0700 PO 09/25/17 07:00 10/01/17 06:21 (Lopressor) 50 mg BID PO 09/25/17 09:00 10/01/17 09:47 (Effient) 10 mg DAILY PO 09/25/17 12:00 09/30/17 08:19 (NovoLOG SUPPLEMENTAL SCALE) 1 ACHS SLIDING SCALE SQ 09/25/17 08:00 10/01/17 09:44 (Mycostatin Powder) 1 applic Q12HR TOPICAL 09/25/17 09:00 10/01/17 09:47 ([place] 5-325 Mg) 1 tab Q4H PRN PO 09/25/17 22:00 09/30/17 22:33 (Duoneb Neb) 1 ampule Q2HR NEB PRN NEB 09/26/17 04:30 09/26/17 04:27 (Lasix Inj) 40 mg BID@09,18 IV PUSH 09/26/17 18:00 10/01/17 09:47 Miscellaneous Information Patient in critical care unit? Ass... Q361D .XX 09/26/17 21:15 09/26/17 21:12 (Chlorhexidine 2% Cloth) 3 pack UNSCH PRN TOPICAL 09/26/17 21:15 10/01/17 21:11 (Duoneb Neb) 1 ampule Q6HR NEB NEB 09/27/17 16:00 10/01/17 04:24 Ceftriaxone Sodium 1000 mg/ Sodium Chloride 100 ml @ 200 mls/hr Q24H IV 09/27/17 12:00 09/30/17 11:47 (Levaquin) 750 mg Q48H PO 09/27/17 13:00 09/29/17 11:51 (NovoLOG INJ) 7 units TIDAC SQ 09/29/17 17:00 10/01/17 09:44 (Levemir Inj) 12 units BID SQ 09/29/17 21:00 10/01/17 09:45 (Procardia Xl) 60 mg Q12HR PO 09/29/17 21:00 10/01/17 09:46 (Deltasone) 20 mg BID PO 09/30/17 21:00 10/01/17 09:46 Albumin Human 100 ml @ 60 mls/hr Q12H IV 09/30/17 22:00 10/01/17 09:48 Vital Signs / I&O Vital Signs Date Time Temp Pulse Resp B/P (MAP) Pulse Ox O2 Delivery O2 Flow Rate FiO2 10/01/17 04:25 94 Nasal Cannula 4.00 10/01/17 04:00 98.3 82 20 154/69 (97) 91 10/01/17 00:00 98.3 93 20 146/66 (92) 92 09/30/17 21:48 94 Nasal Cannula 3.00 09/30/17 20:00 97.8 89 20 152/64 (93) 92 09/30/17 19:45 Nasal Cannula 2.00 09/30/17 19:45 67 09/30/17 15:44 96 Nasal Cannula 2.00 50 Humidified 09/30/17 15:30 97.5 82 18 138/64 (88) 93 09/30/17 12:00 66 09/30/17 12:00 97.7 66 21 129/63 (85) 94 09/30/17 12:00 94 Nasal Cannula 2.00 Humidified I/O 11/2/09/30/17 09/30/17 10/01/17 10/01/17 10/01/17 07:00 15:00 23:00 07:00 15:00 23:00 Intake Total 240 ml 542 ml 240 ml Output Total 1000 ml 325 ml Balance -760 ml 217 ml 240 ml Intake Oral 240 ml 442 ml 240 ml IV Total 100 ml Output Urine Total 1000 ml 325 ml Stool Total 0 ml # Bowel Movements 1 Physical Exam GENERAL: In NAD SKIN: Warm and dry. HEAD: Normocephalic. EYES: No scleral icterus. No injection or drainage. NECK: Supple, trachea midline. No JVD or lymphadenopathy. CARDIOVASCULAR: Regular rate and rhythm, without murmurs, gallops, or rubs. RESPIRATORY: Breath sounds equal bilaterally. No accessory muscle use. Clear. GASTROINTESTINAL: Abdomen soft, non-tender, nondistended. MUSCULOSKELETAL: No cyanosis, bilat LE edema. Laboratory Laboratory Tests Test 09/30/17 18:30 Urine Color LIGHT-YELLOW Urine Turbidity HAZY Urine pH 5.5 Urine Specific [place] 1.012 Urine Protein 300 mg/dL Urine Glucose (UA) 150 mg/dL Urine Ketones NEG mg/dL Urine Occult Blood SMALL Urine Nitrite NEG Urine Bilirubin NEG Urine Urobilinogen LESS THAN 2.0 MG/DL Urine Leukocyte Esterase NEG Urine RBC 2 /hpf Urine WBC 3 /hpf Urine Squamous Epithelial Cells 1 /hpf Urine Amorphous Sediment RARE Urine Bacteria RARE /hpf Urine Hyaline Casts 6 /lpf Microscopic Urinalysis Comment CULT NOT INDICATED Urine Eosinophils NONE SEEN /HPF Urine Random Creatinine 52.4 MG/DL Urine Random Sodium 55 MEQ/L Assessment and Plan Problem List: (1) Congestive heart failure ICD Codes: I50.9 - Heart failure, unspecified Status: Acute (2) Pleural effusion ICD Codes: J90 - Pleural effusion, not elsewhere classified (3) CAD (coronary artery disease) ICD Codes: I25.10 - Atherosclerotic heart disease of [place] coronary artery without angina pectoris Status: Chronic (4) Diabetes mellitus with peripheral vascular disease ICD Codes: E11.51 - Type 2 diabetes mellitus with diabetic peripheral angiopathy without gangrene Status: Chronic (5) CONOR (acute kidney injury) ICD Codes: N17.9 - Acute kidney failure, unspecified Status: Acute (6) HTN (hypertension) ICD Codes: I10 - Essential (primary) hypertension Status: Chronic (7) Pneumonia ICD Codes: J18.9 - Pneumonia, unspecified organism Assessment and Plan Still fluid overloaded with significant edema, low albumin likely contributing as well. Continue IV diuresis, closely monitor renal function. She has LV diastolic dysfunction, recent echo showed preserved LV systolic fx. No evidence of ACS at this time. Increase activity, recommend PT. Nephrology evaluation in progress. Problem Qualifiers (1) Congestive heart failure: Qualified Codes: I50.23 - Acute on chronic systolic (congestive) heart failure Dunia Reddy MD Oct 01, 2017 09:54
[2017-10-01] MEDS: PRASUGREL 10 MG TAB PO SCH (10:25)
[2017-10-01] MEDS: HEPARIN SODIUM - SQ 10,000 UNITS/ML VIAL SQ SCH ×2 (10:25→21:40)
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
[2017-10-01 11:24] LABS: BLOOD GAS BASE EXCESS -0.7 mmol/L (-2-2); BLOOD GAS CARBOXYHEMOGLOBIN 1.6 % (0-4); BLOOD GAS HCO3 23 mmol/L (22-26); BLOOD GAS O2 HGB SATURATION 86 % (90-100); BLOOD GAS OXYGEN CONTENT 9.8 Vol % (12.0-20.0); BLOOD GAS PCO2 35 mmHg (38-42); BLOOD GAS PO2 55 mmHg (61-120); BLOOD GAS TOTAL HGB 8.1 G/DL (12.0-16.0); CRITICAL VALUE YES; DRAW SITE RT RADIAL; FIO2 44 %; LITER FLOW 6 L/M; NUMBER OF ARTERIAL PUNCTURES 1; OXYGEN DEVICE NASAL CANNULA; STAT NO; TEMP CORR TO 98.6; ULNAR PULSE PRESENT
[2017-10-01] MEDS: LEVOFLOXACIN 750 MG TAB PO SCH (12:05)
[2017-10-01] MEDS: ACETAMINOPHEN/HYDROcodone 325 MG/5 MG TAB PO PRN ×2 (12:06→21:40)
[2017-10-01] MEDS: cefTRIAXone INJ 1,000 MG in SODIUM CHLORIDE 0.9% INJ 100 ML IV SCH (12:06)
[2017-10-01] MEDS ORDERED: METOLAZONE 5 MG TAB PO ONE (12:45)
--- NOTE | 2017-10-01 14:00 | RADRPT ---
EXAM DATE/TIME: 10/01/2017 12:38 [facility] COMPARISON: CHEST SINGLE AP, September 26, 2017, 1:11. INDICATIONS : Short of breath. MEDICAL HISTORY : Congestive heart failure. SURGICAL HISTORY : None. ENCOUNTER: Initial ACUITY: 4 - 6 days PAIN SCORE: 0/10 LOCATION: Bilateral chest FINDINGS: Bilateral pleural effusions are stable. The heart is mildly prominent. .bibasilar consolidations ar e again noted. CONCLUSIONS: 1. Stable bibasilar consolidations and pleural effusions. 2. Mild cardiomegaly. Linwood Chadwick MD on October 01, 2017 at 13:49 Board Certified Radiologist. This report was verified electronically.
--- NOTE | 2017-10-01 15:50 | HHI.NPPN ---
Subjective Renal Failure: Stage IV History of Present Illness 66-year-old female with past medical history of hypertension, ischemic heart disease, congestive heart failure, history of chronic kidney disease, diabetes mellitus who was admitted on September 24 with worsening shortness of breath. I was called to see the patient because of elevated BUN and creatinine. The patient has known history of chronic kidney disease and baseline creatinine seems to be close to 1.5-1.8. Additional Remarks Patient is alert, feeling better, breathing is improving. Review of Systems General Constitutional: Fatigue Respiratory Lungs: SOB, Sputum, Wheeze Cardiovascular Cardiac: Edema, KAMARA Objective Data Data Vital Signs Date Time Temp Pulse Resp B/P (MAP) Pulse Ox O2 Delivery O2 Flow Rate FiO2 10/01/17 11:41 96 Partial Rebreather 10.00 10/01/17 09:58 91 Nasal Cannula 6.00 10/01/17 08:00 93 10/01/17 08:00 Nasal Cannula 4.00 10/01/17 04:25 94 Nasal Cannula 4.00 10/01/17 04:00 98.3 82 20 154/69 (97) 91 10/01/17 00:00 98.3 93 20 146/66 (92) 92 09/30/17 21:48 94 Nasal Cannula 3.00 09/30/17 20:00 97.8 89 20 152/64 (93) 92 09/30/17 19:45 Nasal Cannula 2.00 09/30/17 19:45 67 -: 09/27/17 0340 09/30/17 0803 Physical Exam General Appearance: Well Nourished, No Acute Distress, Comfortable Eyes Eye Exam: Pupils Equal Throat Throat Exam: Oral Mucosa [place] & Moist Neck Neck Exam: Neck Supple Pulmonary Resp Exam: Breath Sounds Equal, No Distress, Rhonchi, Decreased Bases, Diminished Breath Sounds Cardiology CV Exam: Regular, Normal Sinus Rhythm Gastrointestinal/Abdomen GI Exam: Soft, Non-Tender, Bowel Sounds Present Extremeties Extremities Exam: Moderate Edema, Pitting Edema, Dependent Edema Neurologic Neuro Exam: Alert, Awake, Oriented Psychiatric Psych Exam: Appropriate Responses Assessment/Plan Assessment Summary: CONOR/Acute Renal Failure, CHF, Hypertension, CKD Stage IV Problem List: (1) Stage 4 chronic kidney disease ICD Codes: N18.4 - Chronic kidney disease, stage 4 (severe) (2) Hypertension ICD Codes: I10 - Essential (primary) hypertension Status: Chronic (3) Anemia, iron deficiency ICD Codes: D50.9 - Iron deficiency anemia, unspecified Status: Chronic (4) COPD (chronic obstructive pulmonary disease) ICD Codes: J44.9 - Chronic obstructive pulmonary disease, unspecified Status: Chronic (5) Congestive heart failure ICD Codes: I50.9 - Heart failure, unspecified Status: Acute (6) Anemia ICD Codes: D64.9 - Anemia, unspecified Status: Chronic (7) Acute kidney insufficiency ICD Codes: N28.9 - Disorder of kidney and ureter, unspecified Status: Acute Plan Patient has stage 4 chronic kidney disease, with baseline Creatinine close to 1.5-1.8. 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 Now develop CONOR and fluid retention. On Lasix, IV Albumin and also now started on Metolazone. Keep in negative fluid balance. 24 HR. urine protein collection in progress. Problem Qualifiers (1) Congestive heart failure: Qualified Codes: I50.23 - Acute on chronic systolic (congestive) heart failure Flavio Toro MD Oct 01, 2017 15:50
[2017-10-01] MEDS: RESP: ALBUTEROL 2.5 MG/IPRATROPIUM 0.5 MG NEB (PRN) NEB ×2 (17:14→19:57)
--- NOTE | 2017-10-01 17:53 | HHI.PR ---
Subjective Remarks 66 YOWF with COPD,PL eff Lung infilt, Resp Insuff Had Thoracentesis, 1400 cc fluid removed No Fever Pl Fliuid cytology Negative On 6 lit N[place], mild sob Objective Vital Signs Vital Signs Date Time Temp Pulse Resp B/P (MAP) Pulse Ox O2 Delivery O2 Flow Rate FiO2 10/01/17 11:41 96 Partial Rebreather 10.00 10/01/17 09:58 91 Nasal Cannula 6.00 10/01/17 08:00 93 10/01/17 08:00 Nasal Cannula 4.00 10/01/17 04:25 94 Nasal Cannula 4.00 10/01/17 04:00 98.3 82 20 154/69 (97) 91 10/01/17 00:00 98.3 93 20 146/66 (92) 92 09/30/17 21:48 94 Nasal Cannula 3.00 09/30/17 20:00 97.8 89 20 152/64 (93) 92 09/30/17 19:45 Nasal Cannula 2.00 09/30/17 19:45 67 I/O 09/30/17 09/30/17 09/30/17 10/01/17 10/01/17 10/01/17 07:00 15:00 23:00 07:00 15:00 23:00 Intake Total 240 ml 542 ml 240 ml Output Total 1000 ml 325 ml Balance -760 ml 217 ml 240 ml Intake Oral 240 ml 442 ml 240 ml IV Total 100 ml Output Urine Total 1000 ml 325 ml Stool Total 0 ml # Bowel Movements 1 Result Diagram: 09/27/17 0340 09/30/17 0803 Objective Remarks GENERAL: Elderly WF, mild sob SKIN: Warm and dry. HEAD: Normocephalic. EYES: No scleral icterus. No injection or drainage. NECK: Supple, trachea midline. No JVD or lymphadenopathy. CARDIOVASCULAR: Regular rate and rhythm without murmurs, gallops, or rubs. RESPIRATORY: Breath sounds equal bilaterally. No accessory muscle use. GASTROINTESTINAL: Abdomen soft, non-tender, nondistended. MUSCULOSKELETAL: No cyanosis, or edema. BACK: Nontender without obvious deformity. No CVA tenderness. A/P Assessment and Plan Pleural eff, s/p TC COPD Resp insuff DM PLAN: Supplement [address] fluid results Cont Abx Monitor BS Pred 20 mg po bid Diurease with Lasix And Metolazone Use Acapella. Aaron Blankenship MD Oct 01, 2017 17:53
[2017-10-02] VITALS (9 sets, daily range): BP systolic 116–158; BP diastolic 55–71; PULSE 85–91; RESP 16–20; TEMP 97.1–98.1; O2SAT 91–97
[2017-10-02] MEDS: ACETAMINOPHEN/HYDROcodone 325 MG/5 MG TAB PO PRN ×3 (03:26→15:11)
[2017-10-02] MEDS: RESP: ALBUTEROL 2.5 MG/IPRATROPIUM 0.5 MG NEB (PRN) NEB ×5 (03:30→19:47)
[2017-10-02] MEDS: ISOSORBIDE MONONITRATE 60 MG TAB PO SCH (05:59)
[2017-10-02 07:56] LABS: AUTOMATED NEUTROPHIL # 6.9 TH/MM3 (1.8-7.7); BASOPHIL % 0.1 % (0.0-2.0); HEMATOCRIT 24.8 % (35.0-46.0); HEMO FLAGS DIFF FINAL; LYMPH % 8.2 % (9.0-44.0); LYMPHOCYTE # 0.7 TH/MM3 (1.0-4.8); MEAN CELL VOLUME 89.9 FL (80.0-100.0); MEAN CORPUSCULAR HEMOGLOBIN 29.9 PG (27.0-34.0); MEAN CORPUSCULAR HGB CONC 33.3 % (32.0-36.0); MONO % 8.1 % (0.0-8.0); NEUT % 83.6 % (16.0-70.0); PLATELET COUNT 210 TH/MM3 (150-450); RED BLOOD COUNT 2.76 MIL/MM3 (4.00-5.30); WHITE BLOOD COUNT 8.3 TH/MM3 (4.0-11.0)
[2017-10-02 08:22] LABS: BICARBONATE 23.4 MEQ/L (21.0-32.0); POTASSIUM 4.1 MEQ/L (3.5-5.1)
[2017-10-02 08:44] LABS: URINE TOTAL PROTEIN TIMED 271.1 MG/DL
[2017-10-02] MEDS ORDERED: METOLAZONE 5 MG TAB PO SCH (09:00)
[2017-10-02] MEDS: predniSONE 20 MG TAB PO SCH ×2 (09:25→22:28)
[2017-10-02] MEDS: ASPIRIN 81 MG CHEW TAB CHEW SCH (09:25)
[2017-10-02] MEDS: NIFEdipine 60 MG SUSTAINED RELEASE TAB PO SCH ×2 (09:25→22:27)
[2017-10-02] MEDS: METOPROLOL TARTRATE 50 MG TAB PO SCH ×2 (09:25→22:28)
[2017-10-02] MEDS: SODIUM CHLORIDE 0.9% FLUSH 10 ML FLUSH IV FLUSH SCH ×2 (09:26→22:29)
[2017-10-02] MEDS: INSULIN DETEMIR 100 UNITS/ML VIAL SQ SCH ×2 (09:26→22:28)
[2017-10-02] MEDS: INSULIN ASPART 1,000 UNITS/10 ML VIAL SQ SCH ×3 (09:26→18:20)
[2017-10-02] MEDS: INSULIN ASPART SUPPLEMENTAL SCALE SQ SCH ×4 (09:26→21:00)
[2017-10-02] MEDS: FUROSEMIDE 40 MG/4 ML VIAL IV PUSH SCH ×2 (09:26→18:21)
[2017-10-02] MEDS: NYSTATIN 100,000 U/GM PWD 15 GM BTL TOPICAL SCH ×2 (09:27→22:35)
[2017-10-02] MEDS: ALBUMIN 25% INJ 100 ML IV SCH ×2 (09:27→22:27)
--- NOTE | 2017-10-02 10:22 | HHI.PR ---
Subjective Remarks With respiratory distress now on 15L partial nonrebreather mask. With lE edema, with nonproductive cough. Has no chest pain . No n/v/d/c. Denies fever or chills. Feels very tired. Objective Vitals Vital Signs Date Time Temp Pulse Resp B/P (MAP) Pulse Ox O2 Delivery O2 Flow Rate FiO2 10/02/17 09:30 97 Partial Rebreather 15.00 10/02/17 08:00 98.1 91 20 158/71 (100) 94 10/02/17 03:33 97.6 86 16 141/66 (91) 97 10/02/17 00:00 97.5 87 20 131/61 (84) 91 10/02/17 00:00 94 Partial Non-Rebreather 15.00 10/01/17 20:00 98.3 87 20 133/62 (85) 92 10/01/17 20:00 86 10/01/17 19:57 95 Partial Rebreather 13.00 10/01/17 19:45 Venturi Mask 6.00 10/01/17 16:00 97.9 85 20 138/62 (87) 91 10/01/17 12:00 99.2 87 20 146/67 (93) 95 10/01/17 11:41 96 Partial Rebreather 10.00 I/O 10/01/17 10/01/17 10/01/17 10/02/17 10/02/17 10/02/17 07:00 15:00 23:00 07:00 15:00 23:00 Intake Total 340 ml 100 ml Output Total 1000 ml Balance -660 ml 100 ml Intake Oral 240 ml 100 ml IV Total 100 ml Output Urine Total 1000 ml # Voids 1 # Bowel Movements 1 0 1 Result Diagram: 10/02/1703 10/02/17 0703 Imaging Last Impressions Chest X-Ray 10/01/17 0000 Signed Impressions: Service Date/Time: Sunday, October 01, 2017 12:38 - CONCLUSION: Renal Ultrasound 09/30/17 0000 Signed Impressions: Service Date/Time: September 20:15 - CONCLUSION: 1. No evidence of hydronephrosis. 2. Right pleural effusion. 3. Lim catheter in bladder. Nura Niño MD Thoracentesis Ultrasound 09/28/17 0000 Signed Impressions: Service Date/Time: Thursday, September 28, 2017 12:36 - CONCLUSION: Uncomplicated ultrasound guided thoracentesis. Linwood Chadwick MD Chest CT 09/24/17 0000 Signed Impressions: Service Date/Time: Sunday, September 24, 2017 20:50 - CONCLUSION: 1. Moderate size bilateral pleural effusions, slightly increased compared with February. Moderate anasarca. 2. Compressive and subsegmental atelectasis in both lungs. 3. Moderate to severe coronary calcifications. 4. Negative for thoracic aortic aneurysm. No acute findings in the upper abdomen. Amadou Salazar MD Objective Remarks GENERAL: This is a well-nourished, well-developed patient, in distress 2/2 short of breath SKIN: Right heel un stageable ulcer, RLE healing dog bite wound CARDIOVASCULAR: Regular rate and rhythm without murmurs, gallops, or rubs. RESPIRATORY: Diminished breath sounds in bases. No wheezes, rales, or rhonchi. GASTROINTESTINAL: Abdomen soft, non-tender, nondistended. MUSCULOSKELETAL: Bilateral lower extremity +2 edema. No calf tenderness. NEUROLOGICAL: Awake and alert. Motor and sensory grossly within normal limits. Five out of 5 muscle strength in all muscle groups. Normal speech. Procedures US guided right sided thoracentesis on 09/27/2017. 08/11/2017 Echo (Prior admission). The left ventricular systolic function is normal with an estimated ejection fraction in the range of 60-65%. Normal left ventricular size. Mild concentric left ventricular hypertrophy. No regional wall motion abnormalities are present. Structurally normal mitral valve. Trace mitral regurgitation. A/P Assessment and Plan 66 y/o female with a history of C Diff, Chronic right lower extremity ulcer secondary to a dog bite, Diastolic CHF, pleural effusion, DM, CAD, CKD, COPD, HTN, GERD, and Bone marrow suppression presented to the ED with shortness of breath. Symptomatic CHF exacerbation, BNP 930- with dyspnea on exertion and at rest, peripheral edema Acute respiratory failure 2/2/ CHF/ COPD exacerbation/ pleural effusion Chest CT reviewed and shows moderate size bilateral pleural effusions, slightly increased from February. -Continue Lasix IV BID. Add metolazone for a couple of days as patient is worsening. Monitor closely kidney function as might deteriorate 2/2 lasix -Consult cardiology, appreciate recommendations -Fluid restriction 1200ml -Patient will need home health at discharge for CHF teaching and daily weights Pleural effusion, s/p thoracocentesis COPD Acute Respiratory failure 2/2/ chf ecac. COPD, pleural effusion Supplement O2 , keep )2 sat > 92 % Check pl fluid results Cont Abx Monitor BS Pred 20 mg po bid Duonebs Add accapella, add Ezpap Pulm ff Dr Blankenship appreciate recommendations Give one dose solumedrol IV, Give additional 40 mg IV lasix today as with worsening sob, and requiring 15 L NRM. Will repeat CXR, patient might need repeat thoracentesis if doesn't improve. CxR reviewed with moderated to large effusions. Will do US for markings and also therapeutic thoracentesis Dysuria, acute, no leukocytosis- UA normal Hypokalemia, potassium 3.3 on admission. -Replaced, monitor and replace as need as patien ton diuretics Chronic right leg ulcer, and new right heel ulcer -Consult Wound care -Dressing per wound care DM2,chronic -ACCU checks AC/HS with SSI CKD3, chronic, creatine at baseline 1.8: cont to monitor, avoid nephrotoxins. MOnitor closely kidney function as patient on lasix. HTN, chronic: Reordered home medication metoprolol and lisinopril, Will order prns as needed DVT prophylaxis: Heparin Discussed Condition With Patient and nurse Discharge Planning Pending improvement now requiring more O2 now on NRM Lay Camacho MD Oct 02, 2017 10:22
--- NOTE | 2017-10-02 10:48 | RADRPT ---
EXAM DATE/TIME: 10/02/2017 10:22 [facility] COMPARISON: CHEST SINGLE AP, October 01, 2017, 12:38. INDICATIONS : Shortness of breath. MEDICAL HISTORY : Congestive heart failure. SURGICAL HISTORY : None. ENCOUNTER: Subsequent ACUITY: 4 - 6 days PAIN SCORE: 0/10 LOCATION: Bilateral chest FINDINGS: Moderate to large bilateral pleural effusions with associated lower lobe airspace consolidation. Card iac silhouette is enlarged. Pulmonary vascularity is indistinct. Remainder of exam is unchanged. CONCLUSION: 1. Cardiomegaly with positive fluid balance. 2. Stable bilateral moderate to large pleural effusions with associated lower lobe airspace consolida tion. Eric Pham MD on October 02, 2017 at 10:38 Board Certified Radiologist. This report was verified electronically.
[2017-10-02] MEDS ORDERED: methylPREDNISolone SOD SUCC 125 MG/2 ML VIAL IV PUSH ONE (11:15)
[2017-10-02] MEDS ORDERED: FUROSEMIDE 40 MG/4 ML VIAL IV PUSH ONE (11:15)
[2017-10-02] MEDS: HEPARIN SODIUM - SQ 10,000 UNITS/ML VIAL SQ SCH ×2 (11:56→22:27)
[2017-10-02] MEDS: cefTRIAXone INJ 1,000 MG in SODIUM CHLORIDE 0.9% INJ 100 ML IV SCH (11:56)
--- NOTE | 2017-10-02 13:50 | HHI.NPPN ---
Subjective Renal Failure: Stage IV History of Present Illness 66-year-old female with past medical history of hypertension, ischemic heart disease, congestive heart failure, history of chronic kidney disease, diabetes mellitus who was admitted on September 24 with worsening shortness of breath. I was called to see the patient because of elevated BUN and creatinine. The patient has known history of chronic kidney disease and baseline creatinine seems to be close to 1.5-1.8. Additional Remarks Patient is alert, feeling better, still has SOB and with NRM. Review of Systems General Constitutional: Fatigue Respiratory Lungs: SOB, Sputum, Wheeze Cardiovascular Cardiac: Edema, KAMARA Objective Data Data Vital Signs Date Time Temp Pulse Resp B/P (MAP) Pulse Ox O2 Delivery O2 Flow Rate FiO2 10/02/17 09:40 90 10/02/17 09:40 Non-Rebreather 15.00 10/02/17 09:30 97 Partial Rebreather 15.00 10/02/17 08:00 98.1 91 20 158/71 (100) 94 10/02/17 03:33 97.6 86 16 141/66 (91) 97 10/02/17 00:00 97.5 87 20 131/61 (84) 91 10/02/17 00:00 94 Partial Non-Rebreather 15.00 10/01/17 20:00 98.3 87 20 133/62 (85) 92 10/01/17 20:00 86 10/01/17 19:57 95 Partial Rebreather 13.00 10/01/17 19:45 Venturi Mask 6.00 10/01/17 16:00 97.9 85 20 138/62 (87) 91 -: 10/02/17 0703 10/02/17 0703 Physical Exam General Appearance: Well Nourished, No Acute Distress, Comfortable Eyes Eye Exam: Pupils Equal Throat Throat Exam: Oral Mucosa Keeler & Moist Neck Neck Exam: Neck Supple Pulmonary Resp Exam: Breath Sounds Equal, No Distress, Rhonchi, Decreased Bases, Diminished Breath Sounds Cardiology CV Exam: Regular, Normal Sinus Rhythm Gastrointestinal/Abdomen GI Exam: Soft, Non-Tender, Bowel Sounds Present Extremeties Extremities Exam: Moderate Edema, Pitting Edema, Dependent Edema Neurologic Neuro Exam: Alert, Awake, Oriented Psychiatric Psych Exam: Appropriate Responses Assessment/Plan Assessment Summary: CONOR/Acute Renal Failure, CHF, Hypertension, CKD Stage IV Problem List: (1) Stage 4 chronic kidney disease ICD Codes: N18.4 - Chronic kidney disease, stage 4 (severe) (2) Hypertension ICD Codes: I10 - Essential (primary) hypertension Status: Chronic (3) Anemia, iron deficiency ICD Codes: D50.9 - Iron deficiency anemia, unspecified Status: Chronic (4) COPD (chronic obstructive pulmonary disease) ICD Codes: J44.9 - Chronic obstructive pulmonary disease, unspecified Status: Chronic (5) Congestive heart failure ICD Codes: I50.9 - Heart failure, unspecified Status: Acute (6) Anemia ICD Codes: D64.9 - Anemia, unspecified Status: Chronic (7) Acute kidney insufficiency ICD Codes: N28.9 - Disorder of kidney and ureter, unspecified Status: Acute Plan Patient has stage 4 chronic kidney disease, with baseline Creatinine close to 1.5-1.8. 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 Now develop CONOR and fluid retention. On Lasix, IV Albumin and also on Metolazone. Keep in negative fluid balance. 24 HR. urine protein showing 3.7 gm proteinuria. Increase Metolazone to BID. Possible Thoracentesis , for pleural effusion. Problem Qualifiers (1) Hypertension: Qualified Codes: I10 - Essential (primary) hypertension (2) Congestive heart failure: Qualified Codes: I50.23 - Acute on chronic systolic (congestive) heart failure Flavio Toro MD Oct 02, 2017 13:50
--- NOTE | 2017-10-02 14:54 | RADRPT ---
EXAM DATE/TIME: 10/02/2017 14:22 [facility] COMPARISON: CHEST SINGLE AP, October 02, 2017, 10:22. INDICATIONS : Pleural effusion. MEDICAL HISTORY : Myocardial infarction. Congestive heart failure. Chronic obstructive pulmonary disease. CAD. A-fib. SURGICAL HISTORY : Tonsillectomy. Coronary artery stent. section. Appendectomy. Hysterectomy. ENCOUNTER: Subsequent ACUITY: 2 days PAIN SCORE: 2/10 LOCATION: Right chest MEASUREMENTS: SKIN TO PARIETAL PLEURA: 2.7 cm SKIN TO MAX SAFE DEPTH: 4.7 cm ESTIMATED FLUID VOLUME: 888 cc FLUID COMPOSITION: simple FINDINGS: Pleural effusion as above. A yoav was placed on the skin surface superficial to the pleural fluid col lection. CONCLUSION: Greater than 800 cc right pleural effusion. Please see above. Rafa Rocha MD on October 02, 2017 at 14:51 Board Certified Radiologist. This report was verified electronically.
--- NOTE | 2017-10-02 14:55 | RADRPT ---
EXAM DATE/TIME: 10/02/2017 14:26 [facility] COMPARISON: CHEST SINGLE AP, August 10, 2017, 14:35. US CHEST LEFT, March 21, 2017, 10:48. INDICATIONS : Pleural effusion. MEDICAL HISTORY : Chronic obstructive pulmonary disease. Hypertension. Myocardial infarction. CHF. CAD. A-fib. SURGICAL HISTORY : section. Tonsillectomy. Coronary artery stent. Appendectomy. Hysterectomy. ENCOUNTER: Subsequent ACUITY: 2 days PAIN SCORE: 3/10 LOCATION: Left chest MEASUREMENTS: SKIN TO PARIETAL PLEURA: 1.5 cm SKIN TO MAX SAFE DEPTH: 3.6 cm ESTIMATED FLUID VOLUME: 726 cc FLUID COMPOSITION: simple FINDINGS: Pleural effusion as above. A yoav was placed on the skin surface superficial to the pleural fluid col lection. CONCLUSION: Greater than 700 cc left pleural effusion. Please see above. Rafa Rocha MD on October 02, 2017 at 14:52 Board Certified Radiologist. This report was verified electronically.
[2017-10-02] MEDS: PRASUGREL 10 MG TAB PO SCH (15:11)
[2017-10-02 15:18] LABS: PROTHROMBIN TIME - PATIENT 10.5 SEC (9.8-11.6)
[2017-10-02] MEDS: METOLAZONE 5 MG TAB PO SCH (22:28)
[2017-10-03] VITALS (11 sets, daily range): BP systolic 124–179; BP diastolic 60–77; PULSE 83–91; RESP 20–21; TEMP 97.2–97.6; O2SAT 90–96
[2017-10-03] MEDS: RESP: ALBUTEROL 2.5 MG/IPRATROPIUM 0.5 MG NEB (PRN) NEB ×6 (00:54→19:52)
[2017-10-03] MEDS: ACETAMINOPHEN/HYDROcodone 325 MG/5 MG TAB PO PRN ×4 (03:00→20:35)
[2017-10-03] MEDS: ISOSORBIDE MONONITRATE 60 MG TAB PO SCH (05:42)
[2017-10-03] MEDS: METOLAZONE 5 MG TAB PO SCH ×2 (08:23→20:37)
[2017-10-03] MEDS: METOPROLOL TARTRATE 50 MG TAB PO SCH ×2 (08:23→20:36)
[2017-10-03] MEDS: INSULIN ASPART 1,000 UNITS/10 ML VIAL SQ SCH ×3 (08:23→18:08)
[2017-10-03] MEDS: NIFEdipine 60 MG SUSTAINED RELEASE TAB PO SCH ×2 (08:23→20:37)
[2017-10-03] MEDS: PRASUGREL 10 MG TAB PO SCH (08:23)
[2017-10-03] MEDS: predniSONE 20 MG TAB PO SCH ×2 (08:23→20:37)
[2017-10-03] MEDS: ASPIRIN 81 MG CHEW TAB CHEW SCH (08:23)
[2017-10-03] MEDS: INSULIN ASPART SUPPLEMENTAL SCALE SQ SCH ×4 (08:24→23:09)
[2017-10-03] MEDS: NYSTATIN 100,000 U/GM PWD 15 GM BTL TOPICAL SCH ×2 (08:24→20:39)
[2017-10-03] MEDS: SODIUM CHLORIDE 0.9% FLUSH 10 ML FLUSH IV FLUSH SCH ×2 (08:24→20:37)
[2017-10-03] MEDS: INSULIN DETEMIR 100 UNITS/ML VIAL SQ SCH ×2 (08:24→23:10)
[2017-10-03] MEDS: ALBUMIN 25% INJ 100 ML IV SCH ×2 (10:23→23:11)
[2017-10-03] MEDS: HEPARIN SODIUM - SQ 10,000 UNITS/ML VIAL SQ SCH ×2 (11:31→23:08)
[2017-10-03] MEDS: cefTRIAXone INJ 1,000 MG in SODIUM CHLORIDE 0.9% INJ 100 ML IV SCH (11:56)
[2017-10-03] MEDS: FUROSEMIDE 40 MG/4 ML VIAL IV PUSH SCH ×2 (11:56→18:31)
[2017-10-03] MEDS: LEVOFLOXACIN 750 MG TAB PO SCH (11:57)
--- NOTE | 2017-10-03 12:15 | HHI.NPPN ---
Subjective Renal Failure: Stage IV History of Present Illness 66-year-old female with past medical history of hypertension, ischemic heart disease, congestive heart failure, history of chronic kidney disease, diabetes mellitus who was admitted on September 24 with worsening shortness of breath. I was called to see the patient because of elevated BUN and creatinine. The patient has known history of chronic kidney disease and baseline creatinine seems to be close to 1.5-1.8. Additional Remarks Patient is alert, feeling better, breathing is improving, still on NRM. Review of Systems General Constitutional: Fatigue Respiratory Lungs: SOB, Sputum, Wheeze Cardiovascular Cardiac: Edema, KAMARA Objective Data Data Vital Signs Date Time Temp Pulse Resp B/P (MAP) Pulse Ox O2 Delivery O2 Flow Rate FiO2 10/03/17 08:32 Non-Rebreather 15.00 10/03/17 08:32 88 10/03/17 07:52 90 Partial Rebreather 15.00 10/03/17 04:04 96 Partial Rebreather 15.00 10/03/17 04:00 Partial Non-Rebreather 15.00 10/03/17 04:00 97.6 87 20 167/72 (103) 93 10/03/17 00:56 90 Partial Rebreather 15.00 10/03/17 00:00 Partial Non-Rebreather 15.00 10/03/17 00:00 97.2 85 20 133/63 (86) 93 10/02/17 20:30 Partial Non-Rebreather 15.00 10/02/17 20:00 85 10/02/17 20:00 97.1 89 20 154/68 (96) 93 10/02/17 19:51 97 Partial Rebreather 15.00 10/02/17 16:00 97.5 86 20 137/63 (87) 93 -: 10/02/17 0703 10/02/17 0703 Physical Exam General Appearance: Well Nourished, No Acute Distress, Comfortable Eyes Eye Exam: Pupils Equal Throat Throat Exam: Oral Mucosa [place] & Moist Neck Neck Exam: Neck Supple Pulmonary Resp Exam: Breath Sounds Equal, No Distress, Rhonchi, Decreased Bases, Diminished Breath Sounds Cardiology CV Exam: Regular, Normal Sinus Rhythm Gastrointestinal/Abdomen GI Exam: Soft, Non-Tender, Bowel Sounds Present Extremeties Extremities Exam: Moderate Edema, Pitting Edema, Dependent Edema Neurologic Neuro Exam: Alert, Awake, Oriented Psychiatric Psych Exam: Appropriate Responses Assessment/Plan Assessment Summary: CONOR/Acute Renal Failure, CHF, Hypertension, CKD Stage IV Problem List: (1) Stage 4 chronic kidney disease ICD Codes: N18.4 - Chronic kidney disease, stage 4 (severe) (2) Hypertension ICD Codes: I10 - Essential (primary) hypertension Status: Chronic (3) Anemia, iron deficiency ICD Codes: D50.9 - Iron deficiency anemia, unspecified Status: Chronic (4) COPD (chronic obstructive pulmonary disease) ICD Codes: J44.9 - Chronic obstructive pulmonary disease, unspecified Status: Chronic (5) Congestive heart failure ICD Codes: I50.9 - Heart failure, unspecified Status: Acute (6) Anemia ICD Codes: D64.9 - Anemia, unspecified Status: Chronic (7) Acute kidney insufficiency ICD Codes: N28.9 - Disorder of kidney and ureter, unspecified Status: Acute Plan Patient has stage 4 chronic kidney disease, with baseline Creatinine close to 1.5-1.8. 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 Now develop CONOR and fluid retention. On Lasix, IV Albumin and also on Metolazone. Keep in negative fluid balance. 24 HR. urine protein showing 3.7 gm proteinuria. On Metolazone to BID and Lasix. Possible Thoracentesis , for pleural effusion. U/S chest noted. Creatinine is almost same. Problem Qualifiers (1) Hypertension: Qualified Codes: I10 - Essential (primary) hypertension (2) Congestive heart failure: Qualified Codes: I50.23 - Acute on chronic systolic (congestive) heart failure Flavio Toro MD Oct 03, 2017 12:15
--- NOTE | 2017-10-03 13:05 | HHI.PR ---
Subjective Remarks The patient was seen earlier today. With sob and feesl tired, discussed with MALINA bowman do thoracentesis today as patient dessating and is on 15 L NRM at this time. With LE edema SAME. Patient has no appetite and not able to eat much . Denies chest pain . Objective Vitals Vital Signs Date Time Temp Pulse Resp B/P (MAP) Pulse Ox O2 Delivery O2 Flow Rate FiO2 10/03/17 08:32 Non-Rebreather 15.00 10/03/17 08:32 88 10/03/17 07:52 90 Partial Rebreather 15.00 10/03/17 04:04 96 Partial Rebreather 15.00 10/03/17 04:00 Partial Non-Rebreather 15.00 10/03/17 04:00 97.6 87 20 167/72 (103) 93 10/03/17 00:56 90 Partial Rebreather 15.00 10/03/17 00:00 Partial Non-Rebreather 15.00 10/03/17 00:00 97.2 85 20 133/63 (86) 93 10/02/17 20:30 Partial Non-Rebreather 15.00 10/02/17 20:00 85 10/02/17 20:00 97.1 89 20 154/68 (96) 93 10/02/17 19:51 97 Partial Rebreather 15.00 10/02/17 16:00 97.5 86 20 137/63 (87) 93 I/O 10/02/17 10/02/17 10/02/17 10/03/17 10/03/17 10/03/17 07:00 15:00 23:00 07:00 15:00 23:00 Intake Total 100 ml 600 ml 200 ml Output Total 1250 ml 1800 ml Balance 100 ml -650 ml -1600 ml Intake Oral 100 ml 400 ml 100 ml IV Total 200 ml 100 ml Output Urine Total 1250 ml 1800 ml # Voids 1 # Bowel Movements 1 0 Result Diagram: 10/02/17 0703 10/02/17 0703 Imaging Last Impressions Chest X-Ray 10/02/17 0000 Signed Impressions: Service Date/Time: Monday, October 02, 2017 10:22 - CONCLUSION: 1. Cardiomegaly with positive fluid balance. 2. Stable bilateral moderate to large pleural effusions with associated lower lobe airspace consolidation. Eric Bozorgmanesh, MD Chest Ultrasound 10/02/17 Signed Impressions: Service Date/Time: Monday, October 02, 2017 14:22 - CONCLUSION: Greater than 800 cc right pleural effusion. Please see above. Rafa Rocha MD Renal Ultrasound 09/30/17 Signed Impressions: Service Date/Time: September 20:15 - CONCLUSION: 1. No evidence of hydronephrosis. 2. Right pleural effusion. 3. Lim catheter in bladder. Nura Niño MD Thoracentesis Ultrasound 09/28/17 Signed Impressions: Service Date/Time: Thursday, September 28, 2017 12:36 - CONCLUSION: Uncomplicated ultrasound guided thoracentesis. Linwood Chadwick MD Chest CT 09/24/17 Signed Impressions: Service Date/Time: Sunday, September 24, 2017 20:50 - CONCLUSION: 1. Moderate size bilateral pleural effusions, slightly increased compared with February. Moderate anasarca. 2. Compressive and subsegmental atelectasis in both lungs. 3. Moderate to severe coronary calcifications. 4. Negative for thoracic aortic aneurysm. No acute findings in the upper abdomen. Amadou Salazar MD Objective Remarks GENERAL: This is a well-nourished, well-developed patient, in distress 2/2 short of breath SKIN: Right heel un stageable ulcer, RLE healing dog bite wound CARDIOVASCULAR: Regular rate and rhythm without murmurs, gallops, or rubs. RESPIRATORY: Diminished breath sounds in bases. No wheezes, rales, or rhonchi. GASTROINTESTINAL: Abdomen soft, non-tender, nondistended. MUSCULOSKELETAL: Bilateral lower extremity +3 edema. No calf tenderness. NEUROLOGICAL: Awake and alert. Motor and sensory grossly within normal limits. Five out of 5 muscle strength in all muscle groups. Normal speech. Procedures US guided right sided thoracentesis on 09/27/2017. 08/11/2017 Echo (Prior admission). The left ventricular systolic function is normal with an estimated ejection fraction in the range of 60-65%. Normal left ventricular size. Mild concentric left ventricular hypertrophy. No regional wall motion abnormalities are present. Structurally normal mitral valve. Trace mitral regurgitation. A/P Assessment and Plan 66 y/o female with a history of C Diff, Chronic right lower extremity ulcer secondary to a dog bite, Diastolic CHF, pleural effusion, DM, CAD, CKD, COPD, HTN, GERD, and Bone marrow suppression presented to the ED with shortness of breath. Symptomatic CHF exacerbation, BNP 930- with dyspnea on exertion and at rest, peripheral edema Acute respiratory failure 2/2/ CHF/ COPD exacerbation/ pleural effusion Chest CT reviewed and shows moderate size bilateral pleural effusions, slightly increased from February. -Continue Lasix IV BID. Add metolazone for a couple of days as patient is worsening. Monitor closely kidney function as might deteriorate 2/2 lasix -Consult cardiology, appreciate recommendations -Fluid restriction 1200ml -Patient will need home health at discharge for CHF teaching and daily weights Pleural effusion, s/p thoracocentesis 09/28/17 Will repeat thoracentesis 10/03/17 Repeat CXR reviewed with moderated to large effusions bilaterally right >left. COPD Acute Respiratory failure 2/2/ chf ecac. COPD, pleural effusion Supplement O2 , keep )2 sat > 92 % Check pl fluid results Cont Abx Monitor BS Pred 20 mg po bid Duonebs Add accapella, add Ezpap Pulm ff Dr Blankenship appreciate recommendations Dysuria, acute, no leukocytosis- UA normal Hypokalemia, potassium 3.3 on admission. -Replaced, monitor and replace as need as patien ton diuretics Chronic right leg ulcer, and new right heel ulcer -Consult Wound care -Dressing per wound care DM2,chronic -ACCU checks AC/HS with SSI CKD3, chronic, creatine at baseline 1.8: cont to monitor, avoid nephrotoxins. MOnitor closely kidney function as patient on lasix. HTN, chronic: Reordered home medication metoprolol and lisinopril, Will order prns as needed DVT prophylaxis: Heparin Discussed Condition With Patient and nurse Discharge Planning Pending improvement now requiring more O2 now on NRM Lay Camacho MD Oct 03, 2017 13:05
--- NOTE | 2017-10-03 18:25 | RADRPT ---
EXAM DATE/TIME: 10/03/2017 18:06 [facility] COMPARISON: US CHEST LEFT, October 02, 2017, 14:26. CHEST SINGLE AP, October 02, 2017, 10:22. INDICATIONS : Post Thoracentesis MEDICAL HISTORY : Chronic obstructive pulmonary disease. Hypertension. Myocardial infarction. CHFCAD. A-fib. SURGICAL HISTORY : section. Tonsillectomy. Coronary artery stent. Appendectomy. Hysterectomy. ENCOUNTER: Subsequent ACUITY: 3 days PAIN SCORE: 3/10 LOCATION: Left chest FINDINGS: Decreased left pleural effusion, now small. There is decrease left base consolidation as well. A some what rounded area of consolidation is now evident in the left upper lobe and should be follow to reso lution. Moderate to large pleural effusion with basilar consolidation again seen on the right. No pneumothorax. CONCLUSION: Left pleural effusion now small. No pneumothorax. Moderate to large right pleural effusion not signif icantly changed. Rafa Rocha MD on October 03, 2017 at 18:20 Board Certified Radiologist. This report was verified electronically.
--- NOTE | 2017-10-03 18:26 | RADRPT ---
EXAM DATE/TIME: 10/03/2017 17:07 [facility] COMPARISON: CHEST EXPIRATION ONLY, October 03, 2017, 18:06. US CHEST LEFT, October 02, 2017, 14:26. US GUIDED THORACENTESIS LEFT, September 28, 2017, 12:36. INDICATIONS : Left pleural effusion. MEDICAL HISTORY : Myocardial infarction. Congestive heart failure. Chronic obstructive pulmonary disease. CAD. A-fib. SURGICAL HISTORY : Tonsillectomy. Coronary artery stent. section. Appendectomy. Hysterectomy. ENCOUNTER: Subsequent ACUITY: 4 - 6 days PAIN SCORE: 1/10 LOCATION: Left chest FLUID: Total volume of 1,250 cc of clear, red fluid was removed. Fluid was discarded. Thoracentesis was therapeutic only. TECHNIQUE: 1. Ultrasound guidance for thoracentesis. 2. Thoracentesis. The risks, benefits, and alternatives to ultrasound guided thoracentesis were explained to the patien t in lay simple terms, including the risk of bleeding and infection. Written and verbal informed con sent was obtained. Appropriate area for thoracentesis was marked under ultrasound guidance with the patient in the uprig ht position. Overlying skin was prepped and draped in the usual sterile fashion and with local anest hetic, a dermatotomy was made with an 11 blade scalpel. A 6 Georgian thoracentesis catheter was placed in the pleural space and fluid was removed. Catheter was then removed and a sterile dressing applie d. There were no immediate complications. The patient tolerated the procedure well and the left the ultrasound suite in stable condition. Chest radiograph is to be obtained. CONCLUSION: Uncomplicated ultrasound guided thoracentesis. Rafa Rocha MD on October 03, 2017 at 18:23 Board Certified Radiologist. This report was verified electronically.
[2017-10-04] VITALS (14 sets, daily range): BP systolic 125–165; BP diastolic 57–74; PULSE 72–89; RESP 19–22; TEMP 97.2–98.4; O2SAT 88–96
[2017-10-04] MEDS: RESP: ALBUTEROL 2.5 MG/IPRATROPIUM 0.5 MG NEB (PRN) NEB ×4 (01:00→22:20)
[2017-10-04] MEDS: ISOSORBIDE MONONITRATE 60 MG TAB PO SCH (06:27)
[2017-10-04 08:03] LABS: AUTOMATED NEUTROPHIL # 8.1 TH/MM3 (1.8-7.7); BASOPHIL % 0.1 % (0.0-2.0); HEMATOCRIT 21.9 % (35.0-46.0); HEMO FLAGS DIFF FINAL; LYMPHOCYTE # 0.5 TH/MM3 (1.0-4.8); MEAN CELL VOLUME 89.7 FL (80.0-100.0); MEAN CORPUSCULAR HEMOGLOBIN 30.4 PG (27.0-34.0); MEAN CORPUSCULAR HGB CONC 33.9 % (32.0-36.0); MONO % 7.5 % (0.0-8.0); NEUT % 87.4 % (16.0-70.0); PLATELET COUNT 219 TH/MM3 (150-450); RED BLOOD COUNT 2.45 MIL/MM3 (4.00-5.30); RED CELL DISTRIBUTION WIDTH 15.6 % (11.6-17.2); WHITE BLOOD COUNT 9.2 TH/MM3 (4.0-11.0)
[2017-10-04 08:27] LABS: BICARBONATE 26.8 MEQ/L (21.0-32.0); MAGNESIUM 2.3 MG/DL (1.5-2.5)
[2017-10-04] MEDS: FUROSEMIDE 40 MG/4 ML VIAL IV PUSH SCH ×2 (08:39→17:19)
[2017-10-04] MEDS: NIFEdipine 60 MG SUSTAINED RELEASE TAB PO SCH ×2 (08:39→20:57)
[2017-10-04] MEDS: METOLAZONE 5 MG TAB PO SCH ×2 (08:39→20:57)
[2017-10-04] MEDS: PRASUGREL 10 MG TAB PO SCH (08:39)
[2017-10-04] MEDS: predniSONE 20 MG TAB PO SCH ×2 (08:40→20:58)
[2017-10-04] MEDS: METOPROLOL TARTRATE 50 MG TAB PO SCH ×2 (08:40→21:00)
[2017-10-04] MEDS: ASPIRIN 81 MG CHEW TAB CHEW SCH (08:40)
[2017-10-04] MEDS: SODIUM CHLORIDE 0.9% FLUSH 10 ML FLUSH IV FLUSH SCH ×2 (08:47→20:58)
[2017-10-04] MEDS: NYSTATIN 100,000 U/GM PWD 15 GM BTL TOPICAL SCH ×2 (08:53→21:00)
[2017-10-04] MEDS: ACETAMINOPHEN/HYDROcodone 325 MG/5 MG TAB PO PRN ×3 (09:11→20:58)
[2017-10-04] MEDS: INSULIN ASPART SUPPLEMENTAL SCALE SQ SCH ×4 (09:12→20:59)
[2017-10-04] MEDS: INSULIN ASPART 1,000 UNITS/10 ML VIAL SQ SCH ×3 (09:12→17:00)
[2017-10-04] MEDS: INSULIN DETEMIR 100 UNITS/ML VIAL SQ SCH ×2 (09:12→20:59)
--- NOTE | 2017-10-04 09:16 | HHI.PR ---
Subjective Remarks Patient still with sob. Had left sided thoracentesis yesterday, plan for right side thoracentesis today as she is still desatting. No fever or chills. Some cough yesterday . feels tired. Eatign better today. no n/v/. Objective Vitals Vital Signs Date Time Temp Pulse Resp B/P (MAP) Pulse Ox O2 Delivery O2 Flow Rate FiO2 10/04/17 09:00 Partial Non-Rebreather 13.00 10/04/17 07:53 96 Partial Rebreather 12.00 10/04/17 04:00 98.0 89 19 165/70 (101) 96 10/04/17 01:02 96 Partial Rebreather 12.00 10/04/17 00:00 97.6 77 20 146/65 (92) 88 10/03/17 20:00 97.4 86 21 124/60 (81) 92 10/03/17 20:00 92 Partial Non-Rebreather 15.00 10/03/17 20:00 86 10/03/17 19:52 94 Nasal Cannula 5.00 10/03/17 16:00 97.2 83 20 132/61 (84) 91 10/03/17 12:00 97.4 86 20 179/77 (111) 92 I/O 10/03/17 10/03/17 10/03/17 10/04/17 10/04/17 10/04/17 07:00 15:00 23:00 07:00 15:00 23:00 Intake Total 200 ml 680 ml 100 ml Output Total 1800 ml 1200 ml 1800 ml Balance -1600 ml -520 ml -1700 ml Intake Oral 100 ml 480 ml 100 ml IV Total 100 ml 200 ml Output Urine Total 1800 ml 1200 ml 1800 ml # Bowel Movements 0 1 Result Diagram: 10/04/17 0705 10/04/17 0745 Imaging Last Impressions Thoracentesis Ultrasound 10/03/17 0000 Signed Impressions: Service Date/Time: Tuesday, October 03, 2017 17:07 - CONCLUSION: Uncomplicated ultrasound guided thoracentesis. Rafa Rocha MD Chest X-Ray 10/03/17 0000 Signed Impressions: Service Date/Time: Tuesday, October 03, 2017 18:06 - CONCLUSION: Left pleural effusion now small. No pneumothorax. Moderate to large right pleural effusion not significantly changed. Rafa Rocha MD Chest Ultrasound 10/02/17 0000 Signed Impressions: Service Date/Time: Monday, October 02, 2017 14:22 - CONCLUSION: Greater than 800 cc right pleural effusion. Please see above. Rafa Rocha MD Renal Ultrasound 09/30/17 0000 Signed Impressions: Service Date/Time: September 20:15 - CONCLUSION: 1. No evidence of hydronephrosis. 2. Right pleural effusion. 3. Lim catheter in bladder. Nura Niño MD Chest CT 09/24/17 0000 Signed Impressions: Service Date/Time: Sunday, September 24, 2017 20:50 - CONCLUSION: 1. Moderate size bilateral pleural effusions, slightly increased compared with February. Moderate anasarca. 2. Compressive and subsegmental atelectasis in both lungs. 3. Moderate to severe coronary calcifications. 4. Negative for thoracic aortic aneurysm. No acute findings in the upper abdomen. Amadou Salazra MD Objective Remarks GENERAL: This is a well-nourished, well-developed patient, in distress 2/2 short of breath SKIN: Right heel un stageable ulcer, RLE healing dog bite wound CARDIOVASCULAR: Regular rate and rhythm without murmurs, gallops, or rubs. RESPIRATORY: Diminished breath sounds in bases. No wheezes, rales, or rhonchi. GASTROINTESTINAL: Abdomen soft, non-tender, nondistended. MUSCULOSKELETAL: Bilateral lower extremity +3 edema. No calf tenderness. NEUROLOGICAL: Awake and alert. Motor and sensory grossly within normal limits. Five out of 5 muscle strength in all muscle groups. Normal speech. Procedures US guided right sided thoracentesis on 09/27/2017. 08/11/2017 Echo (Prior admission). The left ventricular systolic function is normal with an estimated ejection fraction in the range of 60-65%. Normal left ventricular size. Mild concentric left ventricular hypertrophy. No regional wall motion abnormalities are present. Structurally normal mitral valve. Trace mitral regurgitation. A/P Assessment and Plan 66 y/o female with a history of C Diff, Chronic right lower extremity ulcer secondary to a dog bite, Diastolic CHF, pleural effusion, DM, CAD, CKD, COPD, HTN, GERD, and Bone marrow suppression presented to the ED with shortness of breath. Symptomatic CHF exacerbation, BNP 930- with dyspnea on exertion and at rest, peripheral edema Acute respiratory failure 2/2/ CHF/ COPD exacerbation/ pleural effusion Chest CT reviewed and shows moderate size bilateral pleural effusions, slightly increased from February. -Continue Lasix IV BID. Add metolazone 5 mg bid for a couple of days as patient is worsening. Monitor closely kidney function as might deteriorate 2/2 lasix -Consult cardiology, appreciate recommendations -Fluid restriction 1200ml -Patient will need home health at discharge for CHF teaching and daily weights Pleural effusion, s/p thoracocentesis 09/28/17 Repeat CXR reviewed with moderated to large effusions bilaterally right >left. Will repeat thoracentesis 10/03/17 on left side. Repeat thoracentesis on right side 10/04/17 and will order therapeutic and diagnostic as well. COPD Acute Respiratory failure 2/2/ chf ecac. COPD, pleural effusion Supplement O2 , keep )2 sat > 92 % Check pl fluid results Cont Abx Monitor BS Pred 20 mg po bid Duonebs Add accapella, add Ezpap Pulm ff Dr Blankenship appreciate recommendations Dysuria, acute, no leukocytosis- UA normal Hypokalemia, potassium 3.3 on admission. -Replaced, monitor and replace as need as patien ton diuretics Chronic right leg ulcer, and new right heel ulcer -Consult Wound care -Dressing per wound care DM2,chronic -ACCU checks AC/HS with SSI CKD3, chronic, creatine at baseline 1.8: cont to monitor, avoid nephrotoxins. MOnitor closely kidney function as patient on lasix. HTN, chronic: Reordered home medication metoprolol and lisinopril, Will order prns as needed DVT prophylaxis: Heparin Discussed Condition With Patient and nurse Discharge Planning Pending improvement now requiring more O2 now on NRM Lay Camacho MD Oct 04, 2017 09:16
[2017-10-04] MEDS: HEPARIN SODIUM - SQ 10,000 UNITS/ML VIAL SQ SCH ×2 (12:22→22:01)
[2017-10-04] MEDS: cefTRIAXone INJ 1,000 MG in SODIUM CHLORIDE 0.9% INJ 100 ML IV SCH (12:23)
--- NOTE | 2017-10-04 15:50 | HHI.FF ---
Face to Face Verification Diagnosis: (1) Nausea & vomiting (2) Lactic acid acidosis (3) Metabolic acidosis (4) Sepsis (5) Adrenal mass (6) Stage 4 chronic kidney disease (7) Hypertension (8) COPD (chronic obstructive pulmonary disease) (9) Diabetes mellitus with peripheral vascular disease (10) HTN (hypertension) (11) Pleural effusion (12) Pneumonia (13) Congestive heart failure (14) Retinopathy due to secondary diabetes Physical Therapy Order: Evaluate and Treat Home Health Nursing Order: Medical education Signs/symptoms of disease process CHF education Medication education-adverse effect Nursing assessment with vital signs I have seen patient Brinda Maynard on 10/04/17. My clinical findings support the need for the requested home health care services because: Ltd mobility - disease progression Patient has SOB I certify that my clinical findings support that this patient is homebound because: Post-op weakness Hx COPD- exertion dyspnea/weakness Unsteady gait/balance Lay Camacho MD Oct 04, 2017 15:50
--- NOTE | 2017-10-04 18:20 | PD.CARD.PN ---
Subjective Subjective Remarks No CP, increased SOB today. Had thoracentesis again. Still w edema. Objective Medications Current Medications Medications (Trade) Dose Ordered Sig/Marie Route Start Time Stop Time Status Last Admin (NS Flush) 2 ml UNSCH PRN IV FLUSH 09/24/17 22:45 09/30/17 08:19 (NS Flush) 2 ml BID IV FLUSH 09/25/17 09:00 10/04/17 08:47 (Heparin Inj) 5,000 units Q12H SQ 09/24/17 22:45 10/04/17 12:22 (Narcan Inj) 0.4 mg UNSCH PRN IV PUSH 09/24/17 22:45 (Milk Of Magnesia Liq) 30 ml Q12H PRN PO 09/24/17 22:45 (Senokot) 17.2 mg Q12H PRN PO 09/24/17 22:45 (Dulcolax Supp) 10 mg DAILY PRN RECTAL 09/24/17 22:45 (Lactulose Liq) 30 ml DAILY PRN PO 09/24/17 22:45 (Aspirin Chew) 81 mg DAILY CHEW 09/25/17 09:00 10/04/17 08:40 (Imdur) 60 mg DAILY@0700 PO 09/25/17 07:00 10/04/17 06:27 (Lopressor) 50 mg BID PO 09/25/17 09:00 10/04/17 08:40 (Effient) 10 mg DAILY PO 09/25/17 12:00 10/04/17 08:39 (NovoLOG SUPPLEMENTAL SCALE) 1 ACHS SLIDING SCALE SQ 09/25/17 08:00 10/04/17 09:12 (Mycostatin Powder) 1 applic Q12HR TOPICAL 09/25/17 09:00 10/04/17 08:53 (Galliano 5-325 Mg) 1 tab Q4H PRN PO 09/25/17 22:00 10/04/17 14:14 (Duoneb Neb) 1 ampule Q2HR NEB PRN NEB 09/26/17 04:30 10/04/17 14:19 (Lasix Inj) 40 mg BID@09,18 IV PUSH 09/26/17 18:00 10/04/17 17:19 Miscellaneous Information Patient in critical care unit? Ass... [id number] .XX 09/26/17 21:15 09/26/17 21:12 (Levaquin) 750 mg Q48H PO 09/27/17 13:00 10/03/17 11:57 (NovoLOG INJ) 7 units TIDAC SQ 09/29/17 17:00 10/04/17 12:23 (Levemir Inj) 12 units BID SQ 09/29/17 21:00 10/04/17 09:12 (Procardia Xl) 60 mg Q12HR PO 09/29/17 21:00 10/04/17 08:39 (Deltasone) 20 mg BID PO 09/30/17 21:00 10/04/17 08:40 (Zaroxolyn) 5 mg BID PO 10/02/17 21:00 10/04/17 08:39 Vital Signs / I&O Vital Signs Date Time Temp Pulse Resp B/P (MAP) Pulse Ox O2 Delivery O2 Flow Rate FiO2 10/04/17 17:32 Partial Non-Rebreather 13.00 10/04/17 16:13 93 Partial Rebreather 12.00 10/04/17 16:09 Partial Non-Rebreather 13.00 10/04/17 16:00 97.2 82 20 125/57 (79) 95 10/04/17 14:22 95 Partial Non-Rebreather 13.00 10/04/17 14:15 72 22 152/63 (92) 92 10/04/17 12:00 97.5 78 20 162/72 (102) 95 10/04/17 10:54 89 10/04/17 09:50 88 10/04/17 09:00 Partial Non-Rebreather 13.00 10/04/17 08:00 97.3 86 20 163/74 (103) 96 10/04/17 07:53 96 Partial Rebreather 12.00 10/04/17 04:00 98.0 89 19 165/70 (101) 96 10/04/17 01:02 96 Partial Rebreather 12.00 10/04/17 00:00 97.6 77 20 146/65 (92) 88 10/03/17 20:00 97.4 86 21 124/60 (81) 92 10/03/17 20:00 92 Partial Non-Rebreather 15.00 10/03/17 20:00 86 10/03/17 19:52 94 Nasal Cannula 5.00 I/O 10/03/17 10/03/17 10/03/17 10/04/17 10/04/17 10/04/17 07:00 15:00 23:00 07:00 15:00 23:00 Intake Total 200 ml 680 ml 100 ml 480 ml Output Total 1800 ml 1200 ml 1800 ml Balance -1600 ml -520 ml -1700 ml 480 ml Intake Oral 100 ml 480 ml 100 ml 480 ml IV Total 100 ml 200 ml Output Urine Total 1800 ml 1200 ml 1800 ml # Bowel Movements 0 1 0 Physical Exam GENERAL: In mild respiratory distress. SKIN: Warm and dry. HEAD: Normocephalic. EYES: No scleral icterus. No injection or drainage. NECK: Supple, trachea midline. No JVD or lymphadenopathy. CARDIOVASCULAR: Regular rate and rhythm, without murmurs, gallops, or rubs. RESPIRATORY: Breath sounds equal bilaterally. No accessory muscle use. Clear. GASTROINTESTINAL: Abdomen soft, non-tender, nondistended. MUSCULOSKELETAL: No cyanosis, bilat LE edema. Laboratory Laboratory Tests Test 10/04/17 07:05 10/04/17 07:45 White Blood Count 9.2 TH/MM3 Red Blood Count 2.45 MIL/MM3 Hemoglobin 7.4 GM/DL Hematocrit 21.9 % Mean Corpuscular Volume 89.7 FL Mean Corpuscular Hemoglobin 30.4 PG Mean Corpuscular Hemoglobin Concent 33.9 % Red Cell Distribution Width 15.6 % Platelet Count 219 TH/MM3 Mean Platelet Volume 8.5 FL Neutrophils (%) (Auto) 87.4 % Lymphocytes (%) (Auto) 5.0 % Monocytes (%) (Auto) 7.5 % Eosinophils (%) (Auto) 0.0 % Basophils (%) (Auto) 0.1 % Neutrophils # (Auto) 8.1 TH/MM3 Lymphocytes # (Auto) 0.5 TH/MM3 Monocytes # (Auto) 0.7 TH/MM3 Eosinophils # (Auto) 0.0 TH/MM3 Basophils # (Auto) 0.0 TH/MM3 CBC Comment DIFF FINAL Differential Comment Blood Urea Nitrogen 71 MG/DL Creatinine 2.50 MG/DL Random Glucose 160 MG/DL Calcium Level 9.1 MG/DL Magnesium Level 2.3 MG/DL Sodium Level 144 MEQ/L Potassium Level 4.0 MEQ/L Chloride Level 108 MEQ/L Carbon Dioxide Level 26.8 MEQ/L Anion Gap 9 MEQ/L Estimat Glomerular Filtration Rate 19 ML/MIN Assessment and Plan Problem List: (1) Congestive heart failure ICD Codes: I50.9 - Heart failure, unspecified Status: Acute (2) Pleural effusion ICD Codes: J90 - Pleural effusion, not elsewhere classified (3) CAD (coronary artery disease) ICD Codes: I25.10 - Atherosclerotic heart disease of [place] coronary artery without angina pectoris Status: Chronic (4) Diabetes mellitus with peripheral vascular disease ICD Codes: E11.51 - Type 2 diabetes mellitus with diabetic peripheral angiopathy without gangrene Status: Chronic (5) CONOR (acute kidney injury) ICD Codes: N17.9 - Acute kidney failure, unspecified Status: Acute (6) HTN (hypertension) ICD Codes: I10 - Essential (primary) hypertension Status: Chronic (7) Pneumonia ICD Codes: J18.9 - Pneumonia, unspecified organism Assessment and Plan Still SOB and edematous. Slow progress. Not much improvement of SOB p thoracentesis. Continue IV diuresis, closely monitor renal function. She has LV diastolic dysfunction, recent echo showed preserved LV systolic fx. No evidence of ACS. Increase activity, recommend PT. Nephrology and pulmonary evaluation and management. Problem Qualifiers (1) Congestive heart failure: Qualified Codes: I50.23 - Acute on chronic systolic (congestive) heart failure Dunia Reddy MD Oct 04, 2017 18:20
[2017-10-04 18:33] LABS: MEAN CELL VOLUME 89.7 FL (80.0-100.0); MEAN CORPUSCULAR HEMOGLOBIN 29.9 PG (27.0-34.0); MEAN CORPUSCULAR HGB CONC 33.4 % (32.0-36.0); PLATELET COUNT 236 TH/MM3 (150-450); RED BLOOD COUNT 2.67 MIL/MM3 (4.00-5.30); RED CELL DISTRIBUTION WIDTH 15.2 % (11.6-17.2); REVIEW FLAG FINAL; WHITE BLOOD COUNT 10.9 TH/MM3 (4.0-11.0)
--- NOTE | 2017-10-04 18:57 | HHI.NPPN ---
Subjective Renal Failure: Stage IV History of Present Illness 66-year-old female with past medical history of hypertension, ischemic heart disease, congestive heart failure, history of chronic kidney disease, diabetes mellitus who was admitted on September 24 with worsening shortness of breath. I was called to see the patient because of elevated BUN and creatinine. The patient has known history of chronic kidney disease and baseline creatinine seems to be close to 1.5-1.8. Additional Remarks Patient is alert, feeling better, still on NRM, and has SOB. Review of Systems General Constitutional: Fatigue Respiratory Lungs: SOB, Sputum, Wheeze Cardiovascular Cardiac: Edema, KAMARA Objective Data Data 10/04/17 10/05/17 19:00 07:00 Intake Total 480 ml Balance 480 ml Intake Oral 480 ml # Bowel Movements 0 Vital Signs Date Time Temp Pulse Resp B/P (MAP) Pulse Ox O2 Delivery O2 Flow Rate FiO2 10/04/17 17:32 Partial Non-Rebreather 13.00 10/04/17 16:13 93 Partial Rebreather 12.00 10/04/17 16:09 Partial Non-Rebreather 13.00 10/04/17 16:00 97.2 82 20 125/57 (79) 95 10/04/17 14:22 95 Partial Non-Rebreather 13.00 10/04/17 14:15 72 22 152/63 (92) 92 10/04/17 12:00 97.5 78 20 162/72 (102) 95 10/04/17 10:54 89 10/04/17 09:50 88 10/04/17 09:00 Partial Non-Rebreather 13.00 10/04/17 08:00 97.3 86 20 163/74 (103) 96 10/04/17 07:53 96 Partial Rebreather 12.00 10/04/17 04:00 98.0 89 19 165/70 (101) 96 10/04/17 01:02 96 Partial Rebreather 12.00 10/04/17 00:00 97.6 77 20 146/65 (92) 88 10/03/17 20:00 97.4 86 21 124/60 (81) 92 10/03/17 20:00 92 Partial Non-Rebreather 15.00 10/03/17 20:00 86 10/03/17 19:52 94 Nasal Cannula 5.00 -: 10/04/17 1803 10/04/17 0745 Physical Exam General Appearance: Well Nourished, No Acute Distress, Comfortable Eyes Eye Exam: Pupils Equal Throat Throat Exam: Oral Mucosa [place] & Moist Neck Neck Exam: Neck Supple Pulmonary Resp Exam: Breath Sounds Equal, No Distress, Rhonchi, Decreased Bases, Diminished Breath Sounds Cardiology CV Exam: Regular, Normal Sinus Rhythm Gastrointestinal/Abdomen GI Exam: Soft, Non-Tender, Bowel Sounds Present Extremeties Extremities Exam: Moderate Edema, Pitting Edema, Dependent Edema Neurologic Neuro Exam: Alert, Awake, Oriented Psychiatric Psych Exam: Appropriate Responses Assessment/Plan Assessment Summary: CONOR/Acute Renal Failure, CHF, Hypertension, CKD Stage IV Problem List: (1) Stage 4 chronic kidney disease ICD Codes: N18.4 - Chronic kidney disease, stage 4 (severe) (2) Hypertension ICD Codes: I10 - Essential (primary) hypertension Status: Chronic (3) Anemia, iron deficiency ICD Codes: D50.9 - Iron deficiency anemia, unspecified Status: Chronic (4) COPD (chronic obstructive pulmonary disease) ICD Codes: J44.9 - Chronic obstructive pulmonary disease, unspecified Status: Chronic (5) Congestive heart failure ICD Codes: I50.9 - Heart failure, unspecified Status: Acute (6) Anemia ICD Codes: D64.9 - Anemia, unspecified Status: Chronic (7) Acute kidney insufficiency ICD Codes: N28.9 - Disorder of kidney and ureter, unspecified Status: Acute Plan Patient has stage 4 chronic kidney disease, with baseline Creatinine close to 1.5-1.8. 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 Now develop CONOR and fluid retention. On Lasix, IV Albumin and also on Metolazone. Keep in negative fluid balance. 24 HR. urine protein showing 3.7 gm proteinuria. On Metolazone to BID and Lasix. Thoracentesis done and 1250 ml removed. Continue diuresis, Creatinine increase slightly, will follow. Problem Qualifiers (1) Hypertension: Qualified Codes: I10 - Essential (primary) hypertension (2) Congestive heart failure: Qualified Codes: I50.23 - Acute on chronic systolic (congestive) heart failure Flavio Toro MD Oct 04, 2017 18:57
[2017-10-04 19:04] LABS: APTT (PATIENT) 26.8 SEC (24.3-30.1); PROTHROMBIN TIME - PATIENT 10.6 SEC (9.8-11.6)
--- NOTE | 2017-10-04 19:33 | HHI.PR ---
Subjective Remarks 66 YOWF with COPD,PL eff Lung infilt, Resp Insuff Had Left TC today, 1250 cfluid removed On PRB Had blood tinge sp once Objective Vital Signs Vital Signs Date Time Temp Pulse Resp B/P (MAP) Pulse Ox O2 Delivery O2 Flow Rate FiO2 10/04/17 17:32 Partial Non-Rebreather 13.00 10/04/17 16:13 93 Partial Rebreather 12.00 10/04/17 16:09 Partial Non-Rebreather 13.00 10/04/17 16:00 97.2 82 20 125/57 (79) 95 10/04/17 14:22 95 Partial Non-Rebreather 13.00 10/04/17 14:15 72 22 152/63 (92) 92 10/04/17 12:00 97.5 78 20 162/72 (102) 95 10/04/17 10:54 89 10/04/17 09:50 88 10/04/17 09:00 Partial Non-Rebreather 13.00 10/04/17 08:00 97.3 86 20 163/74 (103) 96 10/04/17 07:53 96 Partial Rebreather 12.00 10/04/17 04:00 98.0 89 19 165/70 (101) 96 10/04/17 01:02 96 Partial Rebreather 12.00 10/04/17 00:00 97.6 77 20 146/65 (92) 88 10/03/17 20:00 97.4 86 21 124/60 (81) 92 10/03/17 20:00 92 Partial Non-Rebreather 15.00 10/03/17 20:00 86 10/03/17 19:52 94 Nasal Cannula 5.00 I/O 10/03/17 10/03/17 10/03/17 10/04/17 10/04/17 10/04/17 07:00 15:00 23:00 07:00 15:00 23:00 Intake Total 200 ml 680 ml 100 ml 480 ml Output Total 1800 ml 1200 ml 1800 ml Balance -1600 ml -520 ml -1700 ml 480 ml Intake Oral 100 ml 480 ml 100 ml 480 ml IV Total 100 ml 200 ml Output Urine Total 1800 ml 1200 ml 1800 ml # Bowel Movements 0 1 0 Result Diagram: 10/04/17 18010/04/17 0745 Objective Remarks GENERAL: Elderly WF, mild sob SKIN: Warm and dry. HEAD: Normocephalic. EYES: No scleral icterus. No injection or drainage. NECK: Supple, trachea midline. No JVD or lymphadenopathy. CARDIOVASCULAR: Regular rate and rhythm without murmurs, gallops, or rubs. RESPIRATORY: Breath sounds equal bilaterally. No accessory muscle use. GASTROINTESTINAL: Abdomen soft, non-tender, nondistended. MUSCULOSKELETAL: No cyanosis, or edema. BACK: Nontender without obvious deformity. No CVA tenderness. A/P Assessment and Plan Pleural eff, s/p TC COPD Resp insuff DM PLAN: Supplement 02 [address]B Check pl fluid results Cont Abx Monitor BS Pred 20 mg po bid Use Acapella. Right TC in AM Aaron Blankenship MD Oct 04, 2017 19:33
[2017-10-05] VITALS (11 sets, daily range): BP systolic 132–176; BP diastolic 63–82; PULSE 63–88; RESP 20; TEMP 97.2–98.8; O2SAT 94–99
[2017-10-05] MEDS: ACETAMINOPHEN/HYDROcodone 325 MG/5 MG TAB PO PRN (03:11)
[2017-10-05] MEDS: ISOSORBIDE MONONITRATE 60 MG TAB PO SCH (06:00)
[2017-10-05 07:34] LABS: AUTOMATED NEUTROPHIL # 8.7 TH/MM3 (1.8-7.7); BASOPHIL % 0.1 % (0.0-2.0); EOSINOPHIL % 0.1 % (0.0-4.0); HEMATOCRIT 23.8 % (35.0-46.0); HEMO FLAGS DIFF FINAL; LYMPH % 5.7 % (9.0-44.0); LYMPHOCYTE # 0.6 TH/MM3 (1.0-4.8); MEAN CELL VOLUME 89.9 FL (80.0-100.0); MEAN CORPUSCULAR HEMOGLOBIN 29.7 PG (27.0-34.0); MONO % 6.8 % (0.0-8.0); NEUT % 87.3 % (16.0-70.0); PLATELET COUNT 236 TH/MM3 (150-450); RED BLOOD COUNT 2.64 MIL/MM3 (4.00-5.30); RED CELL DISTRIBUTION WIDTH 15.5 % (11.6-17.2); WHITE BLOOD COUNT 9.9 TH/MM3 (4.0-11.0)
[2017-10-05] MEDS: INSULIN ASPART SUPPLEMENTAL SCALE SQ SCH ×4 (08:00→21:00)
[2017-10-05 08:02] LABS: BICARBONATE 27.4 MEQ/L (21.0-32.0); MAGNESIUM 2.2 MG/DL (1.5-2.5); POTASSIUM 3.7 MEQ/L (3.5-5.1)
--- NOTE | 2017-10-05 08:12 | HHI.PR ---
Subjective Remarks In bed , with sob, plan for thoracentesis today. No fever or chills. Cough nonproductive cough. No n/v/. Eating better. Diuresing well. Objective Vitals Vital Signs Date Time Temp Pulse Resp B/P (MAP) Pulse Ox O2 Delivery O2 Flow Rate FiO2 10/05/17 06:06 159/82 (107) 10/05/17 04:12 20 10/05/17 04:00 98.7 84 20 172/80 (110) 97 10/05/17 00:00 98.8 85 20 152/70 (97) 98 10/04/17 22:25 93 Partial Rebreather 13.00 10/04/17 21:00 Partial Non-Rebreather 13.00 10/04/17 20:31 82 10/04/17 20:00 98.4 83 20 132/60 (84) 95 10/04/17 17:32 Partial Non-Rebreather 13.00 10/04/17 16:13 93 Partial Rebreather 12.00 10/04/17 16:09 Partial Non-Rebreather 13.00 10/04/17 16:00 97.2 82 20 125/57 (79) 95 10/04/17 14:22 95 Partial Non-Rebreather 13.00 10/04/17 14:15 72 22 152/63 (92) 92 10/04/17 12:00 97.5 78 20 162/72 (102) 95 10/04/17 10:54 89 10/04/17 09:50 88 10/04/17 09:00 Partial Non-Rebreather 13.00 I/O 10/04/17 10/04/17 10/04/17 10/05/17 10/05/17 10/05/17 07:00 15:00 23:00 07:00 15:00 23:00 Intake Total 100 ml 480 ml 300 ml Output Total 1800 ml 1750 ml Balance -1700 ml 480 ml -1450 ml Intake Oral 100 ml 480 ml 300 ml Output Urine Total 1800 ml 1750 ml # Bowel Movements 1 0 1 Result Diagram: 10/05/17 0620 10/05/17 0620 Imaging Last Impressions Thoracentesis Ultrasound 10/03/17 0000 Signed Impressions: Service Date/Time: Tuesday, October 03, 2017 17:07 - CONCLUSION: Uncomplicated ultrasound guided thoracentesis. Rafa Rocha MD Chest X-Ray 10/03/17 0000 Signed Impressions: Service Date/Time: Tuesday, October 03, 2017 18:06 - CONCLUSION: Left pleural effusion now small. No pneumothorax. Moderate to large right pleural effusion not significantly changed. Rafa Rocha MD Chest Ultrasound 10/02/17 0000 Signed Impressions: Service Date/Time: Monday, October 02, 2017 14:22 - CONCLUSION: Greater than 800 cc right pleural effusion. Please see above. Rafa Rocha MD Renal Ultrasound 09/30/17 0000 Signed Impressions: Service Date/Time: September 20:15 - CONCLUSION: 1. No evidence of hydronephrosis. 2. Right pleural effusion. 3. Lim catheter in bladder. Nura Niño MD Chest CT 09/24/17 0000 Signed Impressions: Service Date/Time: Sunday, September 24, 2017 20:50 - CONCLUSION: 1. Moderate size bilateral pleural effusions, slightly increased compared with February. Moderate anasarca. 2. Compressive and subsegmental atelectasis in both lungs. 3. Moderate to severe coronary calcifications. 4. Negative for thoracic aortic aneurysm. No acute findings in the upper abdomen. Amadou Salazar MD Objective Remarks GENERAL: This is a well-nourished, well-developed patient, in distress 2/2 short of breath SKIN: Right heel un stageable ulcer, RLE healing dog bite wound CARDIOVASCULAR: Regular rate and rhythm without murmurs, gallops, or rubs. RESPIRATORY: Diminished breath sounds in bases. No wheezes, rales, or rhonchi. GASTROINTESTINAL: Abdomen soft, non-tender, nondistended. MUSCULOSKELETAL: Bilateral lower extremity +3 edema. No calf tenderness. NEUROLOGICAL: Awake and alert. Motor and sensory grossly within normal limits. Five out of 5 muscle strength in all muscle groups. Normal speech. Procedures US guided right sided thoracentesis on 09/27/2017. 08/11/2017 Echo (Prior admission). The left ventricular systolic function is normal with an estimated ejection fraction in the range of 60-65%. Normal left ventricular size. Mild concentric left ventricular hypertrophy. No regional wall motion abnormalities are present. Structurally normal mitral valve. Trace mitral regurgitation. A/P Assessment and Plan 66 y/o female with a history of C Diff, Chronic right lower extremity ulcer secondary to a dog bite, Diastolic CHF, pleural effusion, DM, CAD, CKD, COPD, HTN, GERD, and Bone marrow suppression presented to the ED with shortness of breath. Symptomatic CHF exacerbation, BNP 930- with dyspnea on exertion and at rest, peripheral edema Acute respiratory failure 2/2/ CHF/ COPD exacerbation/ pleural effusion Chest CT reviewed and shows moderate size bilateral pleural effusions, slightly increased from February. -Continue Lasix IV BID. Add metolazone 5 mg bid for a couple of days as patient is worsening. Monitor closely kidney function as might deteriorate 2/2 lasix -Consult cardiology, appreciate recommendations -Fluid restriction 1200ml -Patient will need home health at discharge for CHF teaching and daily weights Pleural effusion, s/p thoracocentesis 09/28/17 Repeat CXR reviewed with moderated to large effusions bilaterally right >left. Will repeat thoracentesis 10/03/17 on left side. Repeat thoracentesis on right side 10/04/17 and will order therapeutic and diagnostic as well. COPD Acute Respiratory failure 2/2/ chf ecac. COPD, pleural effusion Supplement O2 , keep O2 sat > 92 % Check pl fluid results Cont Abx levaquin Monitor BS Pred 20 mg po bid Duonebs Add accapella, add Ezpap Pulm ff Dr Blankenship appreciate recommendations Dysuria, acute, no leukocytosis- UA normal Hypokalemia, potassium 3.3 on admission. -Replaced, monitor and replace as need as patien ton diuretics Chronic right leg ulcer, and new right heel ulcer -Consult Wound care -Dressing per wound care DM2,chronic -ACCU checks AC/HS with SSI CKD3, chronic, creatine at baseline 1.8: cont to monitor, avoid nephrotoxins. Monitor closely kidney function as patient on lasix. HTN, chronic: Reordered home medication metoprolol and lisinopril, Will order prns as needed DVT prophylaxis: Heparin Discussed Condition With Patient and nurse Discharge Planning Pending improvement now requiring more O2 now on NRM, getting therapeutic and diagnostic thoracentesis Lay Camacho MD Oct 05, 2017 08:11
[2017-10-05] MEDS: INSULIN ASPART 1,000 UNITS/10 ML VIAL SQ SCH ×3 (09:00→17:00)
[2017-10-05] MEDS: INSULIN DETEMIR 100 UNITS/ML VIAL SQ SCH ×2 (09:00→22:04)
[2017-10-05] MEDS: NYSTATIN 100,000 U/GM PWD 15 GM BTL TOPICAL SCH ×2 (09:00→21:00)
[2017-10-05] MEDS: ASPIRIN 81 MG CHEW TAB CHEW SCH (09:01)
[2017-10-05] MEDS: SODIUM CHLORIDE 0.9% FLUSH 10 ML FLUSH IV FLUSH SCH ×2 (09:02→22:04)
[2017-10-05] MEDS: FUROSEMIDE 40 MG/4 ML VIAL IV PUSH SCH ×2 (09:02→17:11)
[2017-10-05] MEDS: predniSONE 20 MG TAB PO SCH ×2 (09:05→22:03)
[2017-10-05] MEDS: PRASUGREL 10 MG TAB PO SCH (09:05)
[2017-10-05] MEDS: NIFEdipine 60 MG SUSTAINED RELEASE TAB PO SCH ×2 (09:05→22:03)
[2017-10-05] MEDS: METOLAZONE 5 MG TAB PO SCH ×2 (09:06→22:03)
[2017-10-05] MEDS: METOPROLOL TARTRATE 50 MG TAB PO SCH ×2 (09:19→22:11)
[2017-10-05] MEDS: HEPARIN SODIUM - SQ 10,000 UNITS/ML VIAL SQ SCH ×2 (09:20→22:05)
[2017-10-05] MEDS: LEVOFLOXACIN 750 MG TAB PO SCH (13:05)
--- NOTE | 2017-10-05 14:09 | PD.CARD.PN ---
Subjective Subjective Remarks No CP, mild SOB. Still edematous. Objective Medications Current Medications Medications (Trade) Dose Ordered Sig/Marie Route Start Time Stop Time Status Last Admin (NS Flush) 2 ml UNSCH PRN IV FLUSH 09/24/17 22:45 09/30/17 08:19 (NS Flush) 2 ml BID IV FLUSH 09/25/17 09:00 10/05/17 09:02 (Heparin Inj) 5,000 units Q12H SQ 09/24/17 22:45 10/05/17 09:20 (Narcan Inj) 0.4 mg UNSCH PRN IV PUSH 09/24/17 22:45 (Milk Of Magnesia Liq) 30 ml Q12H PRN PO 09/24/17 22:45 (Senokot) 17.2 mg Q12H PRN PO 09/24/17 22:45 (Dulcolax Supp) 10 mg DAILY PRN RECTAL 09/24/17 22:45 (Lactulose Liq) 30 ml DAILY PRN PO 09/24/17 22:45 (Aspirin Chew) 81 mg DAILY CHEW 09/25/17 09:00 10/05/17 09:01 (Imdur) 60 mg DAILY@0700 PO 09/25/17 07:00 10/05/17 06:00 (Lopressor) 50 mg BID PO 09/25/17 09:00 10/05/17 09:19 (Effient) 10 mg DAILY PO 09/25/17 12:00 10/05/17 09:05 (NovoLOG SUPPLEMENTAL SCALE) 1 ACHS SLIDING SCALE SQ 09/25/17 08:00 10/04/17 09:12 (Mycostatin Powder) 1 applic Q12HR TOPICAL 09/25/17 09:00 10/05/17 09:00 ([place] 5-325 Mg) 1 tab Q4H PRN PO 09/25/17 22:00 10/05/17 03:11 (Duoneb Neb) 1 ampule Q2HR NEB PRN NEB 09/26/17 04:30 10/04/17 22:20 (Lasix Inj) 40 mg BID@09,18 IV PUSH 09/26/17 18:00 10/05/17 09:02 Miscellaneous Information Patient in critical care unit? Ass... Q361D .XX 09/26/17 21:15 09/26/17 21:12 (Levaquin) 750 mg Q48H PO 09/27/17 13:00 10/05/17 13:05 (NovoLOG INJ) 7 units TIDAC SQ 09/29/17 17:00 10/05/17 09:00 (Levemir Inj) 12 units BID SQ 09/29/17 21:00 10/05/17 09:00 (Procardia Xl) 60 mg Q12HR PO 09/29/17 21:00 10/05/17 09:05 (Deltasone) 20 mg BID PO 09/30/17 21:00 10/05/17 09:05 (Zaroxolyn) 5 mg BID PO 10/02/17 21:00 10/05/17 09:06 Vital Signs / I&O Vital Signs Date Time Temp Pulse Resp B/P (MAP) Pulse Ox O2 Delivery O2 Flow Rate FiO2 10/05/17 12:00 97.2 63 20 176/74 (108) 99 10/05/17 11:39 95 Partial Non-Rebreather 13.00 10/05/17 11:29 88 10/05/17 09:20 94 Partial Rebreather 12.00 10/05/17 08:00 97.5 67 20 171/70 (103) 95 10/05/17 06:06 159/82 (107) 10/05/17 04:12 20 10/05/17 04:00 98.7 84 20 172/80 (110) 97 10/05/17 00:00 98.8 85 20 152/70 (97) 98 10/04/17 22:25 93 Partial Rebreather 13.00 10/04/17 21:00 Partial Non-Rebreather 13.00 10/04/17 20:31 82 10/04/17 20:00 98.4 83 20 132/60 (84) 95 10/04/17 17:32 Partial Non-Rebreather 13.00 10/04/17 16:13 93 Partial Rebreather 12.00 10/04/17 16:09 Partial Non-Rebreather 13.00 10/04/17 16:00 97.2 82 20 125/57 (79) 95 10/04/17 14:22 95 Partial Non-Rebreather 13.00 10/04/17 14:15 72 22 152/63 (92) 92 I/O 10/04/17 10/04/17 10/04/17 10/05/17 10/05/17 10/05/17 07:00 15:00 23:00 07:00 15:00 23:00 Intake Total 100 ml 480 ml 300 ml Output Total 1800 ml 1750 ml 1350 ml Balance -1700 ml 480 ml -1450 ml -1350 ml Intake Oral 100 ml 480 ml 300 ml Output Urine Total 1800 ml 1750 ml 1350 ml # Bowel Movements 1 0 1 0 Physical Exam GENERAL: In NAD. SKIN: Warm and dry. HEAD: Normocephalic. EYES: No scleral icterus. No injection or drainage. NECK: Supple, trachea midline. No JVD or lymphadenopathy. CARDIOVASCULAR: Regular rate and rhythm, without murmurs, gallops, or rubs. RESPIRATORY: Breath sounds equal bilaterally. No accessory muscle use. Clear. GASTROINTESTINAL: Abdomen soft, non-tender, nondistended. MUSCULOSKELETAL: No cyanosis, bilat LE edema. Laboratory Laboratory Tests Test 10/04/17 18:03 10/05/17 06:20 White Blood Count 10.9 TH/MM3 9.9 TH/MM3 Red Blood Count 2.67 MIL/MM3 2.64 MIL/MM3 Hemoglobin 8.0 GM/DL 7.8 GM/DL Hematocrit 24.0 % 23.8 % Mean Corpuscular Volume 89.7 FL 89.9 FL Mean Corpuscular Hemoglobin 29.9 PG 29.7 PG Mean Corpuscular Hemoglobin Concent 33.4 % 33.0 % Red Cell Distribution Width 15.2 % 15.5 % Platelet Count 236 TH/MM3 236 TH/MM3 Mean Platelet Volume 8.8 FL 8.4 FL Prothrombin Time 10.6 SEC Prothromb Time International Ratio 1.0 RATIO Activated Partial Thromboplast Time 26.8 SEC Neutrophils (%) (Auto) 87.3 % Lymphocytes (%) (Auto) 5.7 % Monocytes (%) (Auto) 6.8 % Eosinophils (%) (Auto) 0.1 % Basophils (%) (Auto) 0.1 % Neutrophils # (Auto) 8.7 TH/MM3 Lymphocytes # (Auto) 0.6 TH/MM3 Monocytes # (Auto) 0.7 TH/MM3 Eosinophils # (Auto) 0.0 TH/MM3 Basophils # (Auto) 0.0 TH/MM3 CBC Comment DIFF FINAL Differential Comment Blood Urea Nitrogen 71 MG/DL Creatinine 2.54 MG/DL Random Glucose 117 MG/DL Calcium Level 9.1 MG/DL Magnesium Level 2.2 MG/DL Sodium Level 145 MEQ/L Potassium Level 3.7 MEQ/L Chloride Level 108 MEQ/L Carbon Dioxide Level 27.4 MEQ/L Anion Gap 10 MEQ/L Estimat Glomerular Filtration Rate 19 ML/MIN B-Type Natriuretic Peptide 1007 PG/ML Assessment and Plan Problem List: (1) Congestive heart failure ICD Codes: I50.9 - Heart failure, unspecified Status: Acute (2) Pleural effusion ICD Codes: J90 - Pleural effusion, not elsewhere classified (3) CAD (coronary artery disease) ICD Codes: I25.10 - Atherosclerotic heart disease of [place] coronary artery without angina pectoris Status: Chronic (4) Diabetes mellitus with peripheral vascular disease ICD Codes: E11.51 - Type 2 diabetes mellitus with diabetic peripheral angiopathy without gangrene Status: Chronic (5) CONOR (acute kidney injury) ICD Codes: N17.9 - Acute kidney failure, unspecified Status: Acute (6) HTN (hypertension) ICD Codes: I10 - Essential (primary) hypertension Status: Chronic (7) Pneumonia ICD Codes: J18.9 - Pneumonia, unspecified organism Assessment and Plan Still SOB and edematous. Slow progress. Not much improvement of SOB with thoracentesis, repeated thoracentesis planned, pulmonary following. Continue IV diuresis, closely monitor renal function, has stage 4 CKD, nephrology following. She has LV diastolic dysfunction, recent echo showed preserved LV systolic fx. No evidence of ACS. Increase activity, PT. Problem Qualifiers (1) Congestive heart failure: Qualified Codes: I50.23 - Acute on chronic systolic (congestive) heart failure Dunia Reddy MD Oct 05, 2017 14:09
--- NOTE | 2017-10-05 19:37 | HHI.PR ---
Subjective Remarks 66 YOWF with COPD,PL eff Lung infilt, Resp Insuff On PRB Breathing better Weak Objective Vital Signs Vital Signs Date Time Temp Pulse Resp B/P (MAP) Pulse Ox O2 Delivery O2 Flow Rate FiO2 10/05/17 17:22 88 10/05/17 16:00 97.3 78 20 145/66 (92) 94 10/05/17 14:42 99 Partial Non-Rebreather 13.00 10/05/17 12:00 97.2 63 20 176/74 (108) 99 10/05/17 11:39 95 Partial Non-Rebreather 13.00 10/05/17 11:29 88 10/05/17 09:20 94 Partial Rebreather 12.00 10/05/17 08:00 97.5 67 20 171/70 (103) 95 10/05/17 06:06 159/82 (107) 10/05/17 04:12 20 10/05/17 04:00 98.7 84 20 172/80 (110) 97 10/05/17 00:00 98.8 85 20 152/70 (97) 98 10/04/17 22:25 93 Partial Rebreather 13.00 10/04/17 21:00 Partial Non-Rebreather 13.00 10/04/17 20:31 82 10/04/17 20:00 98.4 83 20 132/60 (84) 95 I/O 10/04/17 10/04/17 10/04/17 10/05/17 10/05/17 10/05/17 07:00 15:00 23:00 07:00 15:00 23:00 Intake Total 100 ml 480 ml 300 ml 24 ml Output Total 1800 ml 1750 ml 1350 ml 600 ml Balance -1700 ml 480 ml -1450 ml -1350 ml -576 ml Intake Oral 100 ml 480 ml 300 ml 24 ml Output Urine Total 1800 ml 1750 ml 1350 ml 600 ml # Bowel Movements 1 0 1 0 Result Diagram: 10/05/1761910/05/17619 Objective Remarks GENERAL: Elderly WF, mild sob SKIN: Warm and dry. HEAD: Normocephalic. EYES: No scleral icterus. No injection or drainage. NECK: Supple, trachea midline. No JVD or lymphadenopathy. CARDIOVASCULAR: Regular rate and rhythm without murmurs, gallops, or rubs. RESPIRATORY: Breath sounds equal bilaterally. No accessory muscle use. GASTROINTESTINAL: Abdomen soft, non-tender, nondistended. MUSCULOSKELETAL: No cyanosis, or edema. BACK: Nontender without obvious deformity. No CVA tenderness. A/P Assessment and Plan Pleural eff, s/p TC COPD Resp insuff DM PLAN: Supplement [address] fluid results Cont Abx Monitor BS Pred 20 mg po bid Use Acapella. gerard to NC to keep sat >90% Aaron Blankenship MD Oct 05, 2017 19:37
--- NOTE | 2017-10-05 22:24 | HHI.NPPN ---
Subjective Renal Failure: Stage IV History of Present Illness 66-year-old female with past medical history of hypertension, ischemic heart disease, congestive heart failure, history of chronic kidney disease, diabetes mellitus who was admitted on September 24 with worsening shortness of breath. I was called to see the patient because of elevated BUN and creatinine. The patient has known history of chronic kidney disease and baseline creatinine seems to be close to 1.5-1.8. Additional Remarks Patient is alert, still has SOB, on NRM. Review of Systems General Constitutional: Fatigue Respiratory Lungs: SOB, Sputum, Wheeze Cardiovascular Cardiac: Edema, KAMARA Objective Data Data 10/05/17 10/06/17 19:00 07:00 Intake Total 24 ml Output Total 1950 ml Balance -1926 ml Intake Oral 24 ml Output Urine Total 1950 ml # Bowel Movements 0 Vital Signs Date Time Temp Pulse Resp B/P (MAP) Pulse Ox O2 Delivery O2 Flow Rate FiO2 10/05/17 20:00 97.4 76 20 132/63 (86) 98 10/05/17 17:22 88 10/05/17 16:00 97.3 78 20 145/66 (92) 94 10/05/17 14:42 99 Partial Non-Rebreather 13.00 10/05/17 12:00 97.2 63 20 176/74 (108) 99 10/05/17 11:39 95 Partial Non-Rebreather 13.00 10/05/17 11:29 88 10/05/17 09:20 94 Partial Rebreather 12.00 10/05/17 08:00 97.5 67 20 171/70 (103) 95 10/05/17 06:06 159/82 (107) 10/05/17 04:12 20 10/05/17 04:00 98.7 84 20 172/80 (110) 97 10/05/17 00:00 98.8 85 20 152/70 (97) 98 10/04/17 22:25 93 Partial Rebreather 13.00 -: 10/05/17 0620 10/05/17 0620 Physical Exam General Appearance: Well Nourished, No Acute Distress, Comfortable Eyes Eye Exam: Pupils Equal Throat Throat Exam: Oral Mucosa Brusly & Moist Neck Neck Exam: Neck Supple Pulmonary Resp Exam: Breath Sounds Equal, No Distress, Rhonchi, Decreased Bases, Diminished Breath Sounds Cardiology CV Exam: Regular, Normal Sinus Rhythm Gastrointestinal/Abdomen GI Exam: Soft, Non-Tender, Bowel Sounds Present Extremeties Extremities Exam: Moderate Edema, Pitting Edema, Dependent Edema Neurologic Neuro Exam: Alert, Awake, Oriented Psychiatric Psych Exam: Appropriate Responses Assessment/Plan Assessment Summary: CONOR/Acute Renal Failure, CHF, Hypertension, CKD Stage IV Problem List: (1) Stage 4 chronic kidney disease ICD Codes: N18.4 - Chronic kidney disease, stage 4 (severe) (2) Hypertension ICD Codes: I10 - Essential (primary) hypertension Status: Chronic (3) Anemia, iron deficiency ICD Codes: D50.9 - Iron deficiency anemia, unspecified Status: Chronic (4) COPD (chronic obstructive pulmonary disease) ICD Codes: J44.9 - Chronic obstructive pulmonary disease, unspecified Status: Chronic (5) Congestive heart failure ICD Codes: I50.9 - Heart failure, unspecified Status: Acute (6) Anemia ICD Codes: D64.9 - Anemia, unspecified Status: Chronic (7) Acute kidney insufficiency ICD Codes: N28.9 - Disorder of kidney and ureter, unspecified Status: Acute Plan Patient has stage 4 chronic kidney disease, with baseline Creatinine close to 1.5-1.8. 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 Now develop CONOR and fluid retention. On Lasix, IV Albumin and also on Metolazone. Keep in negative fluid balance. 24 HR. urine protein showing 3.7 gm proteinuria. On Metolazone to BID and Lasix. Thoracentesis done and 1250 ml removed. Continue diuresis, Creatinine is stable. Avoid Nephrotoxins, follow BMP. Problem Qualifiers (1) Hypertension: Qualified Codes: I10 - Essential (primary) hypertension (2) Congestive heart failure: Qualified Codes: I50.23 - Acute on chronic systolic (congestive) heart failure Flavio Toro MD Oct 05, 2017 22:24
[2017-10-06] VITALS (11 sets, daily range): BP systolic 128–181; BP diastolic 61–83; PULSE 62–82; RESP 20; TEMP 97.3–98.5; O2SAT 88–100
[2017-10-06] MEDS: ISOSORBIDE MONONITRATE 60 MG TAB PO SCH (06:00)
[2017-10-06] MEDS: INSULIN ASPART SUPPLEMENTAL SCALE SQ SCH ×4 (08:00→20:34)
[2017-10-06] MEDS: INSULIN ASPART 1,000 UNITS/10 ML VIAL SQ SCH ×3 (08:00→17:56)
[2017-10-06] MEDS: NYSTATIN 100,000 U/GM PWD 15 GM BTL TOPICAL SCH ×2 (09:00→20:35)
[2017-10-06] MEDS: predniSONE 20 MG TAB PO SCH (09:36)
[2017-10-06] MEDS: ASPIRIN 81 MG CHEW TAB CHEW SCH (09:36)
[2017-10-06] MEDS: METOLAZONE 5 MG TAB PO SCH ×2 (09:36→20:31)
[2017-10-06] MEDS: SODIUM CHLORIDE 0.9% FLUSH 10 ML FLUSH IV FLUSH SCH ×2 (09:37→20:34)
[2017-10-06] MEDS: NIFEdipine 60 MG SUSTAINED RELEASE TAB PO SCH ×2 (09:37→20:32)
[2017-10-06] MEDS: FUROSEMIDE 40 MG/4 ML VIAL IV PUSH SCH ×2 (09:37→17:57)
[2017-10-06] MEDS: METOPROLOL TARTRATE 50 MG TAB PO SCH ×2 (09:37→20:32)
[2017-10-06] MEDS: INSULIN DETEMIR 100 UNITS/ML VIAL SQ SCH ×2 (09:37→20:34)
[2017-10-06] MEDS: HEPARIN SODIUM - SQ 10,000 UNITS/ML VIAL SQ SCH ×2 (10:45→22:45)
--- NOTE | 2017-10-06 12:53 | HHI.PR ---
Subjective Remarks feeling better good po peripheral edema persists Objective Vitals Vital Signs Date Time Temp Pulse Resp B/P (MAP) Pulse Ox O2 Delivery O2 Flow Rate FiO2 10/06/17 12:33 97 Simple Mask 10.00 10/06/17 08:45 62 131/62 (85) 10/06/17 08:03 98.5 82 20 181/75 (110) 100 10/06/17 04:00 98.1 63 20 158/71 (100) 100 10/06/17 00:00 97.3 80 20 161/68 (99) 98 10/05/17 22:00 Partial Non-Rebreather 13.00 10/05/17 20:28 78 10/05/17 20:00 97.4 76 20 132/63 (86) 98 10/05/17 17:22 88 10/05/17 16:00 97.3 78 20 145/66 (92) 94 10/05/17 14:42 99 Partial Non-Rebreather 13.00 I/O 10/05/17 10/05/17 10/05/17 10/06/17 10/06/17 10/06/17 07:00 15:00 23:00 07:00 15:00 23:00 Intake Total 300 ml 24 ml 500 ml Output Total 1750 ml 1350 ml 600 ml 800 ml Balance -1450 ml -1350 ml -576 ml -300 ml Intake Oral 300 ml 24 ml 500 ml Output Urine Total 1750 ml 1350 ml 600 ml 800 ml # Bowel Movements 1 0 0 Result Diagram: 10/05/17 0620 10/05/17 0620 Imaging Last Impressions Thoracentesis Ultrasound 10/03/17 0000 Signed Impressions: Service Date/Time: Tuesday, October 03, 2017 17:07 - CONCLUSION: Uncomplicated ultrasound guided thoracentesis. Rafa Rocha MD Chest X-Ray 10/03/17 0000 Signed Impressions: Service Date/Time: Tuesday, October 03, 2017 18:06 - CONCLUSION: Left pleural effusion now small. No pneumothorax. Moderate to large right pleural effusion not significantly changed. Rafa Rocha MD Chest Ultrasound 10/02/17 0000 Signed Impressions: Service Date/Time: Monday, October 02, 2017 14:22 - CONCLUSION: Greater than 800 cc right pleural effusion. Please see above. Rafa Rocha MD Renal Ultrasound 09/30/17 0000 Signed Impressions: Service Date/Time: September 20:15 - CONCLUSION: 1. No evidence of hydronephrosis. 2. Right pleural effusion. 3. Lim catheter in bladder. Nura Niño MD Chest CT 09/24/17 0000 Signed Impressions: Service Date/Time: Sunday, September 24, 2017 20:50 - CONCLUSION: 1. Moderate size bilateral pleural effusions, slightly increased compared with February. Moderate anasarca. 2. Compressive and subsegmental atelectasis in both lungs. 3. Moderate to severe coronary calcifications. 4. Negative for thoracic aortic aneurysm. No acute findings in the upper abdomen. Amadou Salazar MD Objective Remarks awake and alert, no acute distresas anicteric mild decreased breath sounds and vocal fremiti on the left c/w to right regular rhythm abdomen soft, nontender extremities + edema neuro exam- non focal Procedures US guided right sided thoracentesis on 09/27/2017. 08/11/2017 Echo (Prior admission). The left ventricular systolic function is normal with an estimated ejection fraction in the range of 60-65%. Normal left ventricular size. Mild concentric left ventricular hypertrophy. No regional wall motion abnormalities are present. Structurally normal mitral valve. Trace mitral regurgitation. Urinary Catheter: Yes Assessment to: Continue Lim insert reason: Measure Accurate Output Date of Insertion: Oct 05, 2017 A/P Assessment and Plan 66 y/o female with a history of C Diff, Chronic right lower extremity ulcer secondary to a dog bite, Diastolic CHF, pleural effusion, DM, CAD, CKD, COPD, HTN, GERD, and Bone marrow suppression presented to the ED with shortness of breath. Symptomatic CHF exacerbation, BNP 930- with dyspnea on exertion and at rest, peripheral edema- persists Acute respiratory failure 2/2/ CHF/ COPD exacerbation/ pleural effusion S/P thoracentesis Chest CT reviewed and shows moderate size bilateral pleural effusions, slightly increased from February. -Continue Lasix IV BID. Add metolazone 5 mg bid for a couple of days as patient is worsening. Monitor closely kidney function as might deteriorate 2/2 misix -Dr. Reddy ff -Fluid restriction 1200ml -Patient will need home health at discharge for CHF teaching and daily weights Pleural effusion, s/p thoracocentesis 09/28/17 Repeat CXR reviewed with moderated to large effusions bilaterally right >left. Will repeat thoracentesis 10/03/17 on left side. Repeat thoracentesis on right side 10/04/17 and will order therapeutic and diagnostic as well. COPD Acute Respiratory failure 2/2/ chf ecac. COPD, pleural effusion Supplement O2 , keep O2 sat > 92 % decrease Prednisone to 10 mg po bid- 10/06 Cont Abx levaquin Monitor BS Pred 20 mg po bid Duonebs Add accapella, add Ezpap Pulm ff Dr Blankenship appreciate recommendations will need 02 walk test prior to DC - for home if qualifies E coli UTU- on Levaquin Hypokalemia, potassium 3.3 on admission. -Replaced, monitor and replace as need as patien ton diuretics Chronic right leg ulcer, and new right heel ulcer -wound care -Dressing per wound care DM2,chronic -ACCU checks AC/HS with SSI CKD 4 , chronic, creatine at baseline 1.8: cont to monitor, avoid nephrotoxins. Monitor closely kidney function as patient on lasix. HTN, chronic: Reordered home medication metoprolol and lisinopril, Will order prns as needed DVT prophylaxis: Heparin Discussed Condition With Patient and nurse PT consult- increase activity Luis Gunn MD Oct 06, 2017 12:53
--- NOTE | 2017-10-06 15:28 | PD.CARD.PN ---
Subjective Subjective Remarks No CP, less SOB. Still edematous. Objective Medications Current Medications Medications (Trade) Dose Ordered Sig/Marie Route Start Time Stop Time Status Last Admin (NS Flush) 2 ml UNSCH PRN IV FLUSH 09/24/17 22:45 09/30/17 08:19 (NS Flush) 2 ml BID IV FLUSH 09/25/17 09:00 10/06/17 09:37 (Heparin Inj) 5,000 units Q12H SQ 09/24/17 22:45 10/05/17 22:05 (Narcan Inj) 0.4 mg UNSCH PRN IV PUSH 09/24/17 22:45 (Milk Of Magnesia Liq) 30 ml Q12H PRN PO 09/24/17 22:45 (Senokot) 17.2 mg Q12H PRN PO 09/24/17 22:45 (Dulcolax Supp) 10 mg DAILY PRN RECTAL 09/24/17 22:45 (Lactulose Liq) 30 ml DAILY PRN PO 09/24/17 22:45 (Aspirin Chew) 81 mg DAILY CHEW 09/25/17 09:00 10/06/17 09:36 (Imdur) 60 mg DAILY@0700 PO 09/25/17 07:00 10/06/17 06:00 (Lopressor) 50 mg BID PO 09/25/17 09:00 10/06/17 09:37 (Effient) 10 mg DAILY PO 09/25/17 12:00 10/05/17 09:05 (NovoLOG SUPPLEMENTAL SCALE) 1 ACHS SLIDING SCALE SQ 09/25/17 08:00 10/06/17 13:00 (Mycostatin Powder) 1 applic Q12HR TOPICAL 09/25/17 09:00 10/06/17 09:00 (Cabot 5-325 Mg) 1 tab Q4H PRN PO 09/25/17 22:00 10/05/17 03:11 (Duoneb Neb) 1 ampule Q2HR NEB PRN NEB 09/26/17 04:30 10/04/17 22:20 (Lasix Inj) 40 mg BID@09,18 IV PUSH 09/26/17 18:00 10/06/17 09:37 Miscellaneous Information Patient in critical care unit? Ass... Q361D .XX 09/26/17 21:15 09/26/17 21:12 (Levaquin) 750 mg Q48H PO 09/27/17 13:00 10/05/17 13:05 (NovoLOG INJ) 7 units TIDAC SQ 09/29/17 17:00 10/06/17 13:00 (Levemir Inj) 12 units BID SQ 09/29/17 21:00 10/06/17 09:37 (Procardia Xl) 60 mg Q12HR PO 09/29/17 21:00 10/06/17 09:37 (Zaroxolyn) 5 mg BID PO 10/02/17 21:00 10/06/17 09:36 (Deltasone) 10 mg BID PO 10/06/17 21:00 Vital Signs / I&O Vital Signs Date Time Temp Pulse Resp B/P (MAP) Pulse Ox O2 Delivery O2 Flow Rate FiO2 10/06/17 12:33 97 Simple Mask 10.00 10/06/17 08:45 62 131/62 (85) 10/06/17 08:03 98.5 82 20 181/75 (110) 100 10/06/17 07:16 Partial Non-Rebreather 13.00 10/06/17 07:16 82 10/06/17 04:00 98.1 63 20 158/71 (100) 100 10/06/17 00:00 97.3 80 20 161/68 (99) 98 10/05/17 22:00 Partial Non-Rebreather 13.00 10/05/17 20:28 78 10/05/17 20:00 97.4 76 20 132/63 (86) 98 10/05/17 17:22 88 10/05/17 16:00 97.3 78 20 145/66 (92) 94 I/O 10/05/17 10/05/17 10/05/17 10/06/17 10/06/17 10/06/17 07:00 15:00 23:00 07:00 15:00 23:00 Intake Total 300 ml 24 ml 500 ml Output Total 1750 ml 1350 ml 600 ml 800 ml Balance -1450 ml -1350 ml -576 ml -300 ml Intake Oral 300 ml 24 ml 500 ml Output Urine Total 1750 ml 1350 ml 600 ml 800 ml # Bowel Movements 1 0 0 Physical Exam GENERAL: In NAD. SKIN: Warm and dry. HEAD: Normocephalic. EYES: No scleral icterus. No injection or drainage. NECK: Supple, trachea midline. No JVD or lymphadenopathy. CARDIOVASCULAR: Regular rate and rhythm, without murmurs, gallops, or rubs. RESPIRATORY: Breath sounds equal bilaterally. No accessory muscle use. Clear. GASTROINTESTINAL: Abdomen soft, non-tender, nondistended. MUSCULOSKELETAL: No cyanosis, bilat LE edema. Laboratory Date/Time Source Procedure Growth Status 09/28/17 13:25 Fluid Pleural Fluid Gram Stain - Final Complete 09/28/17 13:25 Fluid Pleural Fluid Body Fluid Culture - Final NO GROWTH IN 72 HRS.--AEROBICALLY OR ... Complete 09/25/17 09:20 Urine Clean Catch Urine Culture - Final Proteus Mirabilis Complete Assessment and Plan Problem List: (1) Congestive heart failure ICD Codes: I50.9 - Heart failure, unspecified Status: Acute (2) Pleural effusion ICD Codes: J90 - Pleural effusion, not elsewhere classified (3) CAD (coronary artery disease) ICD Codes: I25.10 - Atherosclerotic heart disease of [place] coronary artery without angina pectoris Status: Chronic (4) Diabetes mellitus with peripheral vascular disease ICD Codes: E11.51 - Type 2 diabetes mellitus with diabetic peripheral angiopathy without gangrene Status: Chronic (5) CONOR (acute kidney injury) ICD Codes: N17.9 - Acute kidney failure, unspecified Status: Acute (6) HTN (hypertension) ICD Codes: I10 - Essential (primary) hypertension Status: Chronic (7) Pneumonia ICD Codes: J18.9 - Pneumonia, unspecified organism Assessment and Plan Less SOB but still edematous. Slow progress. Repeated thoracentesis considered, pulmonary following. Continue IV diuresis, closely monitor renal function, has stage 4 CKD, but still diuresing well with negative I/O's. Nephrology following. She has LV diastolic dysfunction, recent echo showed preserved LV systolic fx. No evidence of ACS. Increase activity, PT. Problem Qualifiers (1) Congestive heart failure: Qualified Codes: I50.23 - Acute on chronic systolic (congestive) heart failure Dunia Reddy MD Oct 06, 2017 15:28
[2017-10-06] MEDS: PRASUGREL 10 MG TAB PO SCH (17:58)
--- NOTE | 2017-10-06 19:32 | HHI.PR ---
Subjective Remarks 66 YOWF with COPD,PL eff Lung infilt, Resp Insuff Breathing better Weak Weaned to Simple mask Objective Vital Signs Vital Signs Date Time Temp Pulse Resp B/P (MAP) Pulse Ox O2 Delivery O2 Flow Rate FiO2 10/06/17 18:16 92 10/06/17 16:03 97.5 62 20 128/61 (83) 88 10/06/17 12:33 97 Simple Mask 10.00 10/06/17 12:03 98.3 62 20 144/66 (92) 100 10/06/17 08:45 62 131/62 (85) 10/06/17 08:03 98.5 82 20 181/75 (110) 100 10/06/17 07:16 Partial Non-Rebreather 13.00 10/06/17 07:16 82 10/06/17 04:00 98.1 63 20 158/71 (100) 100 10/06/17 00:00 97.3 80 20 161/68 (99) 98 10/05/17 22:00 Partial Non-Rebreather 13.00 10/05/17 20:28 78 10/05/17 20:00 97.4 76 20 132/63 (86) 98 I/O 10/05/17 10/05/17 10/05/17 10/06/17 10/06/17 10/06/17 07:00 15:00 23:00 07:00 15:00 23:00 Intake Total 300 ml 24 ml 500 ml 1020 ml Output Total 1750 ml 1350 ml 600 ml 800 ml 2400 ml Balance -1450 ml -1350 ml -576 ml -300 ml -1380 ml Intake Oral 300 ml 24 ml 500 ml 1020 ml Output Urine Total 1750 ml 1350 ml 600 ml 800 ml 2400 ml # Bowel Movements 1 0 0 1 Result Diagram: 10/05/1761910/05/17619 Objective Remarks GENERAL: Elderly WF, mild sob SKIN: Warm and dry. HEAD: Normocephalic. EYES: No scleral icterus. No injection or drainage. NECK: Supple, trachea midline. No JVD or lymphadenopathy. CARDIOVASCULAR: Regular rate and rhythm without murmurs, gallops, or rubs. RESPIRATORY: Breath sounds equal bilaterally. No accessory muscle use. GASTROINTESTINAL: Abdomen soft, non-tender, nondistended. MUSCULOSKELETAL: No cyanosis, or edema. BACK: Nontender without obvious deformity. No CVA tenderness. A/P Assessment and Plan Pleural eff, s/p TC COPD Resp insuff DM PLAN: Supplement 02 with Simple mask Cont Abx Monitor BS Pred 20 mg po bid Use Acapella. gerard to NC to keep sat >88% Aaron Blankenship MD Oct 06, 2017 19:32
[2017-10-06] MEDS: predniSONE 10 MG TAB PO SCH (20:32)
--- NOTE | 2017-10-06 21:12 | HHI.NPPN ---
Subjective Renal Failure: Stage IV History of Present Illness 66-year-old female with past medical history of hypertension, ischemic heart disease, congestive heart failure, history of chronic kidney disease, diabetes mellitus who was admitted on September 24 with worsening shortness of breath. I was called to see the patient because of elevated BUN and creatinine. The patient has known history of chronic kidney disease and baseline creatinine seems to be close to 1.5-1.8. Additional Remarks Patient is alert, breathing is better, now with nasal cannula. Review of Systems General Constitutional: Fatigue Respiratory Lungs: SOB, Sputum, Wheeze Cardiovascular Cardiac: Edema, KAMARA Objective Data Data 10/06/17 10/07/17 19:00 07:00 Intake Total 1020 ml Output Total 2400 ml Balance -1380 ml Intake Oral 1020 ml Output Urine Total 2400 ml # Bowel Movements 1 Vital Signs Date Time Temp Pulse Resp B/P (MAP) Pulse Ox O2 Delivery O2 Flow Rate FiO2 10/06/17 18:16 92 10/06/17 16:03 97.5 62 20 128/61 (83) 88 10/06/17 12:33 97 Simple Mask 10.00 10/06/17 12:03 98.3 62 20 144/66 (92) 100 10/06/17 08:45 62 131/62 (85) 10/06/17 08:03 98.5 82 20 181/75 (110) 100 10/06/17 07:16 Partial Non-Rebreather 13.00 10/06/17 07:16 82 10/06/17 04:00 98.1 63 20 158/71 (100) 100 10/06/17 00:00 97.3 80 20 161/68 (99) 98 10/05/17 22:00 Partial Non-Rebreather 13.00 -: 10/05/17 0620 10/05/17 0620 Physical Exam General Appearance: Well Nourished, No Acute Distress, Comfortable Eyes Eye Exam: Pupils Equal Throat Throat Exam: Oral Mucosa [place] & Moist Neck Neck Exam: Neck Supple Pulmonary Resp Exam: Breath Sounds Equal, No Distress, Rhonchi, Decreased Bases, Diminished Breath Sounds Cardiology CV Exam: Regular, Normal Sinus Rhythm Gastrointestinal/Abdomen GI Exam: Soft, Non-Tender, Bowel Sounds Present Extremeties Extremities Exam: Moderate Edema, Pitting Edema, Dependent Edema Neurologic Neuro Exam: Alert, Awake, Oriented Psychiatric Psych Exam: Appropriate Responses Assessment/Plan Assessment Summary: CONOR/Acute Renal Failure, CHF, Hypertension, CKD Stage IV Problem List: (1) Stage 4 chronic kidney disease ICD Codes: N18.4 - Chronic kidney disease, stage 4 (severe) (2) Hypertension ICD Codes: I10 - Essential (primary) hypertension Status: Chronic (3) Anemia, iron deficiency ICD Codes: D50.9 - Iron deficiency anemia, unspecified Status: Chronic (4) COPD (chronic obstructive pulmonary disease) ICD Codes: J44.9 - Chronic obstructive pulmonary disease, unspecified Status: Chronic (5) Congestive heart failure ICD Codes: I50.9 - Heart failure, unspecified Status: Acute (6) Anemia ICD Codes: D64.9 - Anemia, unspecified Status: Chronic (7) Acute kidney insufficiency ICD Codes: N28.9 - Disorder of kidney and ureter, unspecified Status: Acute Plan Patient has stage 4 chronic kidney disease, with baseline Creatinine close to 1.5-1.8. 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 Now develop CONOR and fluid retention. On Lasix, IV Albumin and also on Metolazone. Keep in negative fluid balance. 24 HR. urine protein showing 3.7 gm proteinuria. On Metolazone to BID and Lasix. Thoracentesis done and 1250 ml removed. Continue diuresis, Avoid Nephrotoxins, follow BMP. Edema is better, follow the BMP in AM. Problem Qualifiers (1) Hypertension: Qualified Codes: I10 - Essential (primary) hypertension (2) Congestive heart failure: Qualified Codes: I50.23 - Acute on chronic systolic (congestive) heart failure Flaivo Toro MD Oct 06, 2017 21:12
[2017-10-07] VITALS (8 sets, daily range): BP systolic 122–163; BP diastolic 60–77; PULSE 60–65; RESP 18–24; TEMP 97.2–98.1; O2SAT 90–96
[2017-10-07] MEDS: ISOSORBIDE MONONITRATE 60 MG TAB PO SCH (06:00)
[2017-10-07] MEDS: INSULIN ASPART SUPPLEMENTAL SCALE SQ SCH ×4 (07:26→21:00)
[2017-10-07] MEDS: INSULIN ASPART 1,000 UNITS/10 ML VIAL SQ SCH ×3 (08:00→17:00)
[2017-10-07] MEDS: predniSONE 10 MG TAB PO SCH ×2 (08:31→21:35)
[2017-10-07] MEDS: METOLAZONE 5 MG TAB PO SCH ×2 (08:32→21:35)
[2017-10-07] MEDS: METOPROLOL TARTRATE 50 MG TAB PO SCH ×2 (08:32→21:35)
[2017-10-07] MEDS: ASPIRIN 81 MG CHEW TAB CHEW SCH (08:32)
[2017-10-07] MEDS: FUROSEMIDE 40 MG/4 ML VIAL IV PUSH SCH ×2 (08:32→17:45)
[2017-10-07] MEDS: NIFEdipine 60 MG SUSTAINED RELEASE TAB PO SCH ×2 (08:32→21:35)
[2017-10-07] MEDS: NYSTATIN 100,000 U/GM PWD 15 GM BTL TOPICAL SCH ×2 (08:33→21:00)
[2017-10-07] MEDS: HEPARIN SODIUM - SQ 10,000 UNITS/ML VIAL SQ SCH ×2 (08:33→22:45)
[2017-10-07] MEDS: INSULIN DETEMIR 100 UNITS/ML VIAL SQ SCH ×2 (08:33→21:34)
[2017-10-07] MEDS: SODIUM CHLORIDE 0.9% FLUSH 10 ML FLUSH IV FLUSH SCH ×2 (08:33→21:36)
[2017-10-07] MEDS: PRASUGREL 10 MG TAB PO SCH (08:36)
[2017-10-07 08:47] LABS: BICARBONATE 25.7 MEQ/L (21.0-32.0); POTASSIUM 3.6 MEQ/L (3.5-5.1)
--- NOTE | 2017-10-07 09:15 | HHI.PR ---
Subjective Remarks no complaints feeling better diuresing well po 100% Objective Vitals Vital Signs Date Time Temp Pulse Resp B/P (MAP) Pulse Ox O2 Delivery O2 Flow Rate FiO2 10/07/17 08:00 97.5 63 20 135/60 (85) 90 10/07/17 04:00 Simple Mask 10.00 10/07/17 04:00 97.4 64 18 146/67 (93) 92 10/07/17 00:00 Simple Mask 10.00 10/07/17 00:00 97.3 62 20 163/77 (105) 95 10/06/17 22:46 95 Simple Mask 10.00 10/06/17 20:00 Simple Mask 10.00 10/06/17 20:00 98.0 79 20 141/83 (102) 94 10/06/17 20:00 80 10/06/17 18:16 92 10/06/17 16:03 97.5 62 20 128/61 (83) 88 10/06/17 12:33 97 Simple Mask 10.00 10/06/17 12:03 98.3 62 20 144/66 (92) 100 I/O 10/06/17 10/06/17 10/06/17 10/07/17 10/07/17 10/07/17 07:00 15:00 23:00 07:00 15:00 23:00 Intake Total 500 ml 1020 ml 480 ml Output Total 800 ml 2400 ml 1600 ml Balance -300 ml -1380 ml -1120 ml Intake Oral 500 ml 1020 ml 480 ml Output Urine Total 800 ml 2400 ml 1600 ml # Bowel Movements 0 1 1 Result Diagram: 10/05/17 0620 10/07/17 0638 Imaging Last Impressions Thoracentesis Ultrasound 10/03/17 0000 Signed Impressions: Service Date/Time: Tuesday, October 03, 2017 17:07 - CONCLUSION: Uncomplicated ultrasound guided thoracentesis. Rafa Rocha MD Chest X-Ray 10/03/17 0000 Signed Impressions: Service Date/Time: Tuesday, October 03, 2017 18:06 - CONCLUSION: Left pleural effusion now small. No pneumothorax. Moderate to large right pleural effusion not significantly changed. Rafa Rocha MD Chest Ultrasound 10/02/17 0000 Signed Impressions: Service Date/Time: Monday, October 02, 2017 14:22 - CONCLUSION: Greater than 800 cc right pleural effusion. Please see above. Rafa Rocha MD Renal Ultrasound 09/30/17 0000 Signed Impressions: Service Date/Time: September 20:15 - CONCLUSION: 1. No evidence of hydronephrosis. 2. Right pleural effusion. 3. Lim catheter in bladder. Nura Niño MD Chest CT 09/24/17 0000 Signed Impressions: Service Date/Time: Sunday, September 24, 2017 20:50 - CONCLUSION: 1. Moderate size bilateral pleural effusions, slightly increased compared with February. Moderate anasarca. 2. Compressive and subsegmental atelectasis in both lungs. 3. Moderate to severe coronary calcifications. 4. Negative for thoracic aortic aneurysm. No acute findings in the upper abdomen. Amadou Salazar MD Objective Remarks awake and alert, no acute distress anicteric mild decreased breath sounds and vocal fremiti on the left c/w to right regular rhythm abdomen soft, nontender extremities - decrease edema neuro exam- non focal Procedures US guided right sided thoracentesis on 09/27/2017. 08/11/2017 Echo (Prior admission). The left ventricular systolic function is normal with an estimated ejection fraction in the range of 60-65%. Normal left ventricular size. Mild concentric left ventricular hypertrophy. No regional wall motion abnormalities are present. Structurally normal mitral valve. Trace mitral regurgitation. Urinary Catheter: Yes Assessment to: Continue Lim insert reason: Measure Accurate Output Date of Insertion: Oct 05, 2017 A/P Assessment and Plan 66 y/o female with a history of C Diff, Chronic right lower extremity ulcer secondary to a dog bite, Diastolic CHF, pleural effusion, DM, CAD, CKD, COPD, HTN, GERD, and Bone marrow suppression presented to the ED with shortness of breath. Symptomatic CHF exacerbation, BNP 930- with dyspnea on exertion and at rest, peripheral edema- persists Acute respiratory failure 2/2/ CHF/ COPD exacerbation/ pleural effusion S/P thoracentesis Chest CT reviewed and shows moderate size bilateral pleural effusions, slightly increased from February. -Continue Lasix IV BID. Add metolazone 5 mg bid for a couple of days as patient is worsening. Monitor closely kidney function as might deteriorate 2/2 jarad -Dr. Reddy ff -Fluid restriction 1200ml -Patient will need home health at discharge for CHF teaching and daily weights Pleural effusion, s/p thoracocentesis 09/28/17 Repeat CXR reviewed with moderated to large effusions bilaterally right >left. Will repeat thoracentesis 10/03/17 on left side. Repeat thoracentesis on right side 10/04/17 and will order therapeutic and diagnostic as well. COPD Acute Respiratory failure 2/2/ chf ecac. COPD, pleural effusion Supplement O2 , keep O2 sat > 92 % decrease Prednisone to 10 mg po bid- 10/06 Cont Abx levaquin Monitor BS Pred 20 mg po bid Duonebs Add accapella, add Ezpap Pulm ff Dr Blankenship appreciate recommendations will need 02 walk test prior to DC - for home 02 if qualifies E coli UTI- on Levaquin Hypokalemia, potassium 3.3 on admission. -Replaced, monitor and replace as need as patien ton diuretics Chronic right leg ulcer, and new right heel ulcer -wound care -Dressing per wound care DM2,chronic -ACCU checks AC/HS with SSI CKD 4 , chronic, creatine at baseline 1.8: cont to monitor, avoid nephrotoxins. Monitor closely kidney function as patient on lasix. HTN, chronic: Reordered home medication metoprolol and lisinopril, Will order prns as needed DVT prophylaxis: Heparin Discussed Condition With Patient and nurse PT consult- increase activity- patient motivated Luis Gunn MD Oct 07, 2017 09:15
--- NOTE | 2017-10-07 10:57 | HHI.NPPN ---
Subjective Renal Failure: Stage IV History of Present Illness 66-year-old female with past medical history of hypertension, ischemic heart disease, congestive heart failure, history of chronic kidney disease, diabetes mellitus who was admitted on September 24 with worsening shortness of breath. I was called to see the patient because of elevated BUN and creatinine. The patient has known history of chronic kidney disease and baseline creatinine seems to be close to 1.5-1.8. Additional Remarks Patient is alert, breathing is better, still with VM, feeling better. Review of Systems General Constitutional: Fatigue Respiratory Lungs: SOB, Sputum, Wheeze Cardiovascular Cardiac: Edema, KAMARA Objective Data Data Vital Signs Date Time Temp Pulse Resp B/P (MAP) Pulse Ox O2 Delivery O2 Flow Rate FiO2 10/07/17 08:00 97.5 63 20 135/60 (85) 90 10/07/17 04:00 Simple Mask 10.00 10/07/17 04:00 97.4 64 18 146/67 (93) 92 10/07/17 00:00 Simple Mask 10.00 10/07/17 00:00 97.3 62 20 163/77 (105) 95 10/06/17 22:46 95 Simple Mask 10.00 10/06/17 20:00 Simple Mask 10.00 10/06/17 20:00 98.0 79 20 141/83 (102) 94 10/06/17 20:00 80 10/06/17 18:16 92 10/06/17 16:03 97.5 62 20 128/61 (83) 88 10/06/17 12:33 97 Simple Mask 10.00 10/06/17 12:03 98.3 62 20 144/66 (92) 100 -: 10/05/17 0620 10/07/17 0638 Physical Exam General Appearance: Well Nourished, No Acute Distress, Comfortable Eyes Eye Exam: Pupils Equal Throat Throat Exam: Oral Mucosa [place] & Moist Neck Neck Exam: Neck Supple Pulmonary Resp Exam: Breath Sounds Equal, No Distress, Rhonchi, Decreased Bases, Diminished Breath Sounds Cardiology CV Exam: Regular, Normal Sinus Rhythm Gastrointestinal/Abdomen GI Exam: Soft, Non-Tender, Bowel Sounds Present Extremeties Extremities Exam: Moderate Edema, Pitting Edema, Dependent Edema Neurologic Neuro Exam: Alert, Awake, Oriented Psychiatric Psych Exam: Appropriate Responses Assessment/Plan Assessment Summary: CONOR/Acute Renal Failure, CHF, Hypertension, CKD Stage IV Problem List: (1) Stage 4 chronic kidney disease ICD Codes: N18.4 - Chronic kidney disease, stage 4 (severe) (2) Hypertension ICD Codes: I10 - Essential (primary) hypertension Status: Chronic (3) Anemia, iron deficiency ICD Codes: D50.9 - Iron deficiency anemia, unspecified Status: Chronic (4) COPD (chronic obstructive pulmonary disease) ICD Codes: J44.9 - Chronic obstructive pulmonary disease, unspecified Status: Chronic (5) Congestive heart failure ICD Codes: I50.9 - Heart failure, unspecified Status: Acute (6) Anemia ICD Codes: D64.9 - Anemia, unspecified Status: Chronic (7) Acute kidney insufficiency ICD Codes: N28.9 - Disorder of kidney and ureter, unspecified Status: Acute Plan Patient has stage 4 chronic kidney disease, with baseline Creatinine close to 1.5-1.8. 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 Now develop CONOR and fluid retention. On Lasix, IV Albumin and also on Metolazone. Keep in negative fluid balance. 24 HR. urine protein showing 3.7 gm proteinuria. On Metolazone to BID and Lasix. Thoracentesis done and 1250 ml removed. Continue diuresis, Avoid Nephrotoxins, follow BMP. Edema is better, Creatinine is better, 2.2. K is normal, continue diuresis. Problem Qualifiers (1) Hypertension: Qualified Codes: I10 - Essential (primary) hypertension (2) Congestive heart failure: Qualified Codes: I50.23 - Acute on chronic systolic (congestive) heart failure Flavio Toro MD Oct 07, 2017 10:57
[2017-10-07] MEDS: LEVOFLOXACIN 750 MG TAB PO SCH (13:27)
--- NOTE | 2017-10-07 17:58 | PD.CARD.PN ---
Subjective Subjective Remarks No CP or SOB, edema improving Objective Medications Current Medications Medications (Trade) Dose Ordered Sig/Marie Route Start Time Stop Time Status Last Admin (NS Flush) 2 ml UNSCH PRN IV FLUSH 09/24/17 22:45 09/30/17 08:19 (NS Flush) 2 ml BID IV FLUSH 09/25/17 09:00 10/07/17 08:33 (Heparin Inj) 5,000 units Q12H SQ 09/24/17 22:45 10/07/17 08:33 (Narcan Inj) 0.4 mg UNSCH PRN IV PUSH 09/24/17 22:45 (Milk Of Magnesia Liq) 30 ml Q12H PRN PO 09/24/17 22:45 (Senokot) 17.2 mg Q12H PRN PO 09/24/17 22:45 (Dulcolax Supp) 10 mg DAILY PRN RECTAL 09/24/17 22:45 (Lactulose Liq) 30 ml DAILY PRN PO 09/24/17 22:45 (Aspirin Chew) 81 mg DAILY CHEW 09/25/17 09:00 10/07/17 08:32 (Imdur) 60 mg DAILY@0700 PO 09/25/17 07:00 10/07/17 06:00 (Lopressor) 50 mg BID PO 09/25/17 09:00 10/07/17 08:32 (Effient) 10 mg DAILY PO 09/25/17 12:00 10/07/17 08:36 (NovoLOG SUPPLEMENTAL SCALE) 1 ACHS SLIDING SCALE SQ 09/25/17 08:00 10/07/17 13:27 (Mycostatin Powder) 1 applic Q12HR TOPICAL 09/25/17 09:00 10/07/17 08:33 (Epes 5-325 Mg) 1 tab Q4H PRN PO 09/25/17 22:00 10/05/17 03:11 (Duoneb Neb) 1 ampule Q2HR NEB PRN NEB 09/26/17 04:30 10/04/17 22:20 (Lasix Inj) 40 mg BID@09,18 IV PUSH 09/26/17 18:00 10/07/17 17:45 Miscellaneous Information Patient in critical care unit? Ass... [id number] .XX 09/26/17 21:15 09/26/17 21:12 (Levaquin) 750 mg Q48H PO 09/27/17 13:00 10/07/17 13:27 (NovoLOG INJ) 7 units TIDAC SQ 09/29/17 17:00 10/07/17 17:00 (Levemir Inj) 12 units BID SQ 09/29/17 21:00 10/07/17 08:33 (Procardia Xl) 60 mg Q12HR PO 09/29/17 21:00 10/07/17 08:32 (Zaroxolyn) 5 mg BID PO 10/02/17 21:00 10/07/17 08:32 (Deltasone) 10 mg BID PO 10/06/17 21:00 10/07/17 08:31 Vital Signs / I&O Vital Signs Date Time Temp Pulse Resp B/P (MAP) Pulse Ox O2 Delivery O2 Flow Rate FiO2 10/07/17 12:00 97.2 65 20 122/75 (91) 94 10/07/17 10:30 94 Venturi Mask 50 10/07/17 08:00 97.5 63 20 135/60 (85) 90 10/07/17 04:00 Simple Mask 10.00 10/07/17 04:00 97.4 64 18 146/67 (93) 92 10/07/17 00:00 Simple Mask 10.00 10/07/17 00:00 97.3 62 20 163/77 (105) 95 10/06/17 22:46 95 Simple Mask 10.00 10/06/17 20:00 Simple Mask 10.00 10/06/17 20:00 98.0 79 20 141/83 (102) 94 10/06/17 20:00 80 10/06/17 18:16 92 I/O 10/06/17 10/06/17 10/06/17 10/07/17 10/07/17 10/07/17 07:00 15:00 23:00 07:00 15:00 23:00 Intake Total 500 ml 1020 ml 480 ml Output Total 800 ml 2400 ml 1600 ml Balance -300 ml -1380 ml -1120 ml Intake Oral 500 ml 1020 ml 480 ml Output Urine Total 800 ml 2400 ml 1600 ml # Bowel Movements 0 1 1 Physical Exam GENERAL: In NAD. SKIN: Warm and dry. HEAD: Normocephalic. EYES: No scleral icterus. No injection or drainage. NECK: Supple, trachea midline. No JVD or lymphadenopathy. CARDIOVASCULAR: Regular rate and rhythm, without murmurs, gallops, or rubs. RESPIRATORY: Breath sounds equal bilaterally. No accessory muscle use. Clear. GASTROINTESTINAL: Abdomen soft, non-tender, nondistended. MUSCULOSKELETAL: No cyanosis, less LE edema. Laboratory Laboratory Tests Test 10/07/17 06:38 Blood Urea Nitrogen 72 MG/DL Creatinine 2.23 MG/DL Random Glucose 118 MG/DL Calcium Level 8.9 MG/DL Sodium Level 144 MEQ/L Potassium Level 3.6 MEQ/L Chloride Level 108 MEQ/L Carbon Dioxide Level 25.7 MEQ/L Anion Gap 10 MEQ/L Estimat Glomerular Filtration Rate 22 ML/MIN Assessment and Plan Problem List: (1) Congestive heart failure ICD Codes: I50.9 - Heart failure, unspecified Status: Acute (2) Pleural effusion ICD Codes: J90 - Pleural effusion, not elsewhere classified (3) CAD (coronary artery disease) ICD Codes: I25.10 - Atherosclerotic heart disease of [place] coronary artery without angina pectoris Status: Chronic (4) Diabetes mellitus with peripheral vascular disease ICD Codes: E11.51 - Type 2 diabetes mellitus with diabetic peripheral angiopathy without gangrene Status: Chronic (5) CONOR (acute kidney injury) ICD Codes: N17.9 - Acute kidney failure, unspecified Status: Acute (6) HTN (hypertension) ICD Codes: I10 - Essential (primary) hypertension Status: Chronic (7) Pneumonia ICD Codes: J18.9 - Pneumonia, unspecified organism Assessment and Plan No SOB; edema significantly improved with diuresis. Continue IV diuresis, closely monitor renal function, has stage 4 CKD, but still diuresing well with negative I/O's. Nephrology following. She has LV diastolic dysfunction, recent echo showed preserved LV systolic fx. No evidence of ACS. Increase activity, PT. D/w pt and . Problem Qualifiers (1) Congestive heart failure: Qualified Codes: I50.23 - Acute on chronic systolic (congestive) heart failure Dunia Reddy MD Oct 07, 2017 17:58
--- NOTE | 2017-10-07 18:16 | HHI.PR ---
Subjective Remarks 66 YOWF with COPD,PL eff Lung infilt, Resp Insuff Breathing better Weak Objective Vital Signs Vital Signs Date Time Temp Pulse Resp B/P (MAP) Pulse Ox O2 Delivery O2 Flow Rate FiO2 10/07/17 12:00 97.2 65 20 122/75 (91) 94 10/07/17 10:30 94 Venturi Mask 50 10/07/17 08:00 97.5 63 20 135/60 (85) 90 10/07/17 04:00 Simple Mask 10.00 10/07/17 04:00 97.4 64 18 146/67 (93) 92 10/07/17 00:00 Simple Mask 10.00 10/07/17 00:00 97.3 62 20 163/77 (105) 95 10/06/17 22:46 95 Simple Mask 10.00 10/06/17 20:00 Simple Mask 10.00 10/06/17 20:00 98.0 79 20 141/83 (102) 94 10/06/17 20:00 80 10/06/17 18:16 92 I/O 10/06/17 10/06/17 10/06/17 10/07/17 10/07/17 10/07/17 07:00 15:00 23:00 07:00 15:00 23:00 Intake Total 500 ml 1020 ml 480 ml Output Total 800 ml 2400 ml 1600 ml Balance -300 ml -1380 ml -1120 ml Intake Oral 500 ml 1020 ml 480 ml Output Urine Total 800 ml 2400 ml 1600 ml # Bowel Movements 0 1 1 Result Diagram: 10/05/17 0620 10/07/17 0638 Objective Remarks GENERAL: Elderly WF, mild sob SKIN: Warm and dry. HEAD: Normocephalic. EYES: No scleral icterus. No injection or drainage. NECK: Supple, trachea midline. No JVD or lymphadenopathy. CARDIOVASCULAR: Regular rate and rhythm without murmurs, gallops, or rubs. RESPIRATORY: Breath sounds equal bilaterally. No accessory muscle use. GASTROINTESTINAL: Abdomen soft, non-tender, nondistended. MUSCULOSKELETAL: No cyanosis, or edema. BACK: Nontender without obvious deformity. No CVA tenderness. A/P Assessment and Plan Pleural eff, s/p TC COPD Resp insuff DM PLAN: Supplement 02 with Simple mask Cont Abx Monitor BS Pred 20 mg po bid Use Acapella. wean to NC to keep sat >88% Looks more comfortable. Aaron Blankenship MD Oct 07, 2017 18:15
[2017-10-08] VITALS (7 sets, daily range): BP systolic 123–167; BP diastolic 62–86; PULSE 58–77; RESP 14–20; TEMP 97.6–98; O2SAT 90–96
[2017-10-08] MEDS: ISOSORBIDE MONONITRATE 60 MG TAB PO SCH (05:42)
[2017-10-08] MEDS: INSULIN ASPART SUPPLEMENTAL SCALE SQ SCH ×4 (08:00→22:29)
[2017-10-08] MEDS: INSULIN ASPART 1,000 UNITS/10 ML VIAL SQ SCH ×3 (08:00→17:00)
[2017-10-08] MEDS: INSULIN DETEMIR 100 UNITS/ML VIAL SQ SCH (08:14)
--- NOTE | 2017-10-08 10:06 | HHI.NPPN ---
Subjective Renal Failure: Stage IV History of Present Illness 66-year-old female with past medical history of hypertension, ischemic heart disease, congestive heart failure, history of chronic kidney disease, diabetes mellitus who was admitted on September 24 with worsening shortness of breath. I was called to see the patient because of elevated BUN and creatinine. The patient has known history of chronic kidney disease and baseline creatinine seems to be close to 1.5-1.8. Additional Remarks Patient is alert, breathing is better, now with nasal cannula, eating has low BS in AM. Review of Systems General Constitutional: Fatigue Respiratory Lungs: SOB, Sputum, Wheeze Cardiovascular Cardiac: Edema, KAMARA Objective Data Data Vital Signs Date Time Temp Pulse Resp B/P (MAP) Pulse Ox O2 Delivery O2 Flow Rate FiO2 10/08/17 08:00 98.0 61 20 156/62 (93) 96 10/08/17 04:00 Nasal Cannula 5.00 10/08/17 04:00 97.8 61 20 150/67 (94) 94 10/08/17 00:00 98.0 58 20 167/71 (103) 94 10/08/17 00:00 Nasal Cannula 5.00 10/07/17 20:00 Nasal Cannula 5.00 10/07/17 20:00 63 10/07/17 19:30 98.1 61 24 156/70 (98) 96 10/07/17 16:00 97.6 60 20 138/65 (89) 94 10/07/17 12:00 97.2 65 20 122/75 (91) 94 10/07/17 10:30 94 Venturi Mask 50 -: 10/05/17 0620 10/08/17 0850 Physical Exam General Appearance: Well Nourished, No Acute Distress, Comfortable Eyes Eye Exam: Pupils Equal Throat Throat Exam: Oral Mucosa [place] & Moist Neck Neck Exam: Neck Supple Pulmonary Resp Exam: Breath Sounds Equal, No Distress, Rhonchi, Decreased Bases, Diminished Breath Sounds Cardiology CV Exam: Regular, Normal Sinus Rhythm Gastrointestinal/Abdomen GI Exam: Soft, Non-Tender, Bowel Sounds Present Extremeties Extremities Exam: Moderate Edema, Pitting Edema, Dependent Edema Neurologic Neuro Exam: Alert, Awake, Oriented Psychiatric Psych Exam: Appropriate Responses Assessment/Plan Assessment Summary: CONOR/Acute Renal Failure, CHF, Hypertension, CKD Stage IV Problem List: (1) Stage 4 chronic kidney disease ICD Codes: N18.4 - Chronic kidney disease, stage 4 (severe) (2) Hypertension ICD Codes: I10 - Essential (primary) hypertension Status: Chronic (3) Anemia, iron deficiency ICD Codes: D50.9 - Iron deficiency anemia, unspecified Status: Chronic (4) COPD (chronic obstructive pulmonary disease) ICD Codes: J44.9 - Chronic obstructive pulmonary disease, unspecified Status: Chronic (5) Congestive heart failure ICD Codes: I50.9 - Heart failure, unspecified Status: Acute (6) Anemia ICD Codes: D64.9 - Anemia, unspecified Status: Chronic (7) Acute kidney insufficiency ICD Codes: N28.9 - Disorder of kidney and ureter, unspecified Status: Acute Plan Patient has stage 4 chronic kidney disease, with baseline Creatinine close to 1.5-1.8. 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 Now develop CONOR and fluid retention. On Lasix, IV Albumin and also on Metolazone. Keep in negative fluid balance. 24 HR. urine protein showing 3.7 gm proteinuria. On Metolazone to BID and Lasix. Thoracentesis done and 1250 ml removed. Continue diuresis, Avoid Nephrotoxins, follow BMP. Edema is better, Creatinine was stable yesterday. No new BMP. Keep in negative fluid balance, restrict salt and fluid intake. Problem Qualifiers (1) Hypertension: Qualified Codes: I10 - Essential (primary) hypertension (2) Congestive heart failure: Qualified Codes: I50.23 - Acute on chronic systolic (congestive) heart failure Flavio Toro MD Oct 08, 2017 10:06
[2017-10-08] MEDS: ASPIRIN 81 MG CHEW TAB CHEW SCH (10:27)
[2017-10-08] MEDS: METOPROLOL TARTRATE 50 MG TAB PO SCH ×2 (10:27→22:26)
[2017-10-08] MEDS: NIFEdipine 60 MG SUSTAINED RELEASE TAB PO SCH ×2 (10:27→22:26)
[2017-10-08] MEDS: PRASUGREL 10 MG TAB PO SCH (10:27)
[2017-10-08] MEDS: METOLAZONE 5 MG TAB PO SCH ×2 (10:27→22:26)
[2017-10-08] MEDS: predniSONE 10 MG TAB PO SCH ×2 (10:27→22:26)
[2017-10-08] MEDS: FUROSEMIDE 40 MG/4 ML VIAL IV PUSH SCH ×2 (10:28→19:11)
[2017-10-08] MEDS: SODIUM CHLORIDE 0.9% FLUSH 10 ML FLUSH IV FLUSH SCH ×2 (10:28→22:25)
--- NOTE | 2017-10-08 11:13 | HHI.PR ---
Subjective Remarks states feeling better and breathing more comfortably BS this am - 70- aymptomatic Objective Vitals Vital Signs Date Time Temp Pulse Resp B/P (MAP) Pulse Ox O2 Delivery O2 Flow Rate FiO2 10/08/17 08:00 98.0 61 20 156/62 (93) 96 10/08/17 04:00 Nasal Cannula 5.00 10/08/17 04:00 97.8 61 20 150/67 (94) 94 10/08/17 00:00 98.0 58 20 167/71 (103) 94 10/08/17 00:00 Nasal Cannula 5.00 10/07/17 20:00 Nasal Cannula 5.00 10/07/17 20:00 63 10/07/17 19:30 98.1 61 24 156/70 (98) 96 10/07/17 16:00 97.6 60 20 138/65 (89) 94 10/07/17 12:00 97.2 65 20 122/75 (91) 94 I/O 10/07/17 10/07/17 10/07/17 10/08/17 10/08/17 10/08/17 07:00 15:00 23:00 07:00 15:00 23:00 Intake Total 480 ml 480 ml 120 ml Output Total 1600 ml 1000 ml 1200 ml Balance -1120 ml -520 ml -1080 ml Intake Oral 480 ml 480 ml 120 ml Output Urine Total 1600 ml 1000 ml 1200 ml # Bowel Movements 1 1 1 Result Diagram: 10/05/17 0620 10/08/17 0850 Imaging Last Impressions Thoracentesis Ultrasound 10/03/17 0000 Signed Impressions: Service Date/Time: Tuesday, October 03, 2017 17:07 - CONCLUSION: Uncomplicated ultrasound guided thoracentesis. Rafa Rocha MD Chest X-Ray 10/03/17 0000 Signed Impressions: Service Date/Time: Tuesday, October 03, 2017 18:06 - CONCLUSION: Left pleural effusion now small. No pneumothorax. Moderate to large right pleural effusion not significantly changed. Rafa Rocha MD Chest Ultrasound 10/02/17 0000 Signed Impressions: Service Date/Time: Monday, October 02, 2017 14:22 - CONCLUSION: Greater than 800 cc right pleural effusion. Please see above. Rafa Rocha MD Renal Ultrasound 09/30/17 0000 Signed Impressions: Service Date/Time: September 20:15 - CONCLUSION: 1. No evidence of hydronephrosis. 2. Right pleural effusion. 3. Lim catheter in bladder. Nura Niño MD Chest CT 09/24/17 0000 Signed Impressions: Service Date/Time: Sunday, September 24, 2017 20:50 - CONCLUSION: 1. Moderate size bilateral pleural effusions, slightly increased compared with February. Moderate anasarca. 2. Compressive and subsegmental atelectasis in both lungs. 3. Moderate to severe coronary calcifications. 4. Negative for thoracic aortic aneurysm. No acute findings in the upper abdomen. Amadou Salazar MD Objective Remarks awake and alert, no acute distress anicteric mild decreased breath sounds and vocal fremiti on the left c/w to right regular rhythm abdomen soft, nontender extremities - decrease edema neuro exam- non focal Procedures US guided right sided thoracentesis on 09/27/2017. 08/11/2017 Echo (Prior admission). The left ventricular systolic function is normal with an estimated ejection fraction in the range of 60-65%. Normal left ventricular size. Mild concentric left ventricular hypertrophy. No regional wall motion abnormalities are present. Structurally normal mitral valve. Trace mitral regurgitation. Urinary Catheter: No Assessment to: Remove Date of Insertion: Oct 05, 2017 Date of Removal: Oct 08, 2017 A/P Assessment and Plan 66 y/o female with a history of C Diff, Chronic right lower extremity ulcer secondary to a dog bite, Diastolic CHF, pleural effusion, DM, CAD, CKD, COPD, HTN, GERD, and Bone marrow suppression presented to the ED with shortness of breath. Symptomatic CHF exacerbation, BNP 930- with dyspnea on exertion and at rest, peripheral edema- persists Acute respiratory failure 2/2/ CHF/ COPD exacerbation/ pleural effusion S/P thoracentesis Chest CT reviewed and shows moderate size bilateral pleural effusions, slightly increased from February. -Continue Lasix IV BID. Add metolazone 5 mg bid for a couple of days as patient is worsening. Monitor closely kidney function as might deteriorate 2/2 misix -Dr. Reddy ff -Fluid restriction 1200ml -Patient will need home health at discharge for CHF teaching and daily weights Pleural effusion, s/p thoracocentesis 09/28/17 Repeat CXR reviewed with moderated to large effusions bilaterally right >left. Will repeat thoracentesis 10/03/17 on left side. Repeat thoracentesis on right side 10/04/17 and will order therapeutic and diagnostic as well. COPD Acute Respiratory failure 2/2/ chf ecac. COPD, pleural effusion Supplement O2 , keep O2 sat > 92 % decrease Prednisone to 10 mg po bid- 10/06- - gradual taper Cont Abx levaquin Monitor BS Pred 20 mg po bid Duonebs Add accapella, add Ezpap Pulm ff Dr Blankenship appreciate recommendations will need 02 walk test prior to DC - for home 02 if qualifies UTI- e coli. S/P Levaquin course 10/08 Levaquin Hypokalemia, potassium 3.3 on admission. -Replaced, monitor and replace as need as patien ton diuretics Chronic right leg ulcer, and new right heel ulcer -wound care -Dressing per wound care DM2,chronic blood sugars reviewed will DC HS Levemer and decrease AM Levemer dose and montior -ACCU checks AC/HS with SSI CKD 4 , chronic, creatine at baseline 1.8: cont to monitor, avoid nephrotoxins. Monitor closely kidney function as patient on lasix. HTN, chronic: Reordered home medication metoprolol and lisinopril, Will order prns as needed DVT prophylaxis: Heparin Discussed Condition With Patient and nurse PT consult- increase activity- patient motivated will benefit from short term rehab- patient interested- consult Luis Culver MD Oct 08, 2017 11:13
[2017-10-08] MEDS: HEPARIN SODIUM - SQ 10,000 UNITS/ML VIAL SQ SCH ×2 (12:32→22:26)
[2017-10-08] MEDS: NYSTATIN 100,000 U/GM PWD 15 GM BTL TOPICAL SCH ×2 (12:33→22:27)
--- NOTE | 2017-10-08 15:48 | PD.CARD.PN ---
Subjective Subjective Remarks No CP or SOB, edema improved, good progress Objective Medications Current Medications Medications (Trade) Dose Ordered Sig/Marie Route Start Time Stop Time Status Last Admin (NS Flush) 2 ml UNSCH PRN IV FLUSH 09/24/17 22:45 09/30/17 08:19 (NS Flush) 2 ml BID IV FLUSH 09/25/17 09:00 10/08/17 10:28 (Heparin Inj) 5,000 units Q12H SQ 09/24/17 22:45 10/08/17 12:32 (Narcan Inj) 0.4 mg UNSCH PRN IV PUSH 09/24/17 22:45 (Milk Of Magnesia Liq) 30 ml Q12H PRN PO 09/24/17 22:45 (Senokot) 17.2 mg Q12H PRN PO 09/24/17 22:45 (Dulcolax Supp) 10 mg DAILY PRN RECTAL 09/24/17 22:45 (Lactulose Liq) 30 ml DAILY PRN PO 09/24/17 22:45 (Aspirin Chew) 81 mg DAILY CHEW 09/25/17 09:00 10/08/17 10:27 (Imdur) 60 mg DAILY@0700 PO 09/25/17 07:00 10/08/17 05:42 (Lopressor) 50 mg BID PO 09/25/17 09:00 10/08/17 10:27 (Effient) 10 mg DAILY PO 09/25/17 12:00 10/08/17 10:27 (NovoLOG SUPPLEMENTAL SCALE) 1 ACHS SLIDING SCALE SQ 09/25/17 08:00 10/07/17 13:27 (Mycostatin Powder) 1 applic Q12HR TOPICAL 09/25/17 09:00 10/08/17 12:33 ([place] 5-325 Mg) 1 tab Q4H PRN PO 09/25/17 22:00 10/05/17 03:11 (Duoneb Neb) 1 ampule Q2HR NEB PRN NEB 09/26/17 04:30 10/04/17 22:20 (Lasix Inj) 40 mg BID@09,18 IV PUSH 09/26/17 18:00 10/08/17 10:28 Miscellaneous Information Patient in critical care unit? Ass... [id number] .XX 09/26/17 21:15 09/26/17 21:12 (Procardia Xl) 60 mg Q12HR PO 09/29/17 21:00 10/08/17 10:27 (Zaroxolyn) 5 mg BID PO 10/02/17 21:00 10/08/17 10:27 (Deltasone) 10 mg BID PO 10/06/17 21:00 10/08/17 10:27 (NovoLOG INJ) 4 units TIDAC SQ 10/08/17 12:00 (Levemir Inj) 5 units DAILY SQ 10/09/17 08:00 Vital Signs / I&O Vital Signs Date Time Temp Pulse Resp B/P (MAP) Pulse Ox O2 Delivery O2 Flow Rate FiO2 10/08/17 08:00 98.0 61 20 156/62 (93) 96 10/08/17 04:00 Nasal Cannula 5.00 10/08/17 04:00 97.8 61 20 150/67 (94) 94 10/08/17 00:00 98.0 58 20 167/71 (103) 94 10/08/17 00:00 Nasal Cannula 5.00 10/07/17 20:00 Nasal Cannula 5.00 10/07/17 20:00 63 10/07/17 19:30 98.1 61 24 156/70 (98) 96 10/07/17 16:00 97.6 60 20 138/65 (89) 94 I/O 10/07/17 10/07/17 10/07/17 10/08/17 10/08/17 10/08/17 07:00 15:00 23:00 07:00 15:00 23:00 Intake Total 480 ml 480 ml 120 ml Output Total 1600 ml 1000 ml 1200 ml 775 ml Balance -1120 ml -520 ml -1080 ml -775 ml Intake Oral 480 ml 480 ml 120 ml Output Urine Total 1600 ml 1000 ml 1200 ml 775 ml # Bowel Movements 1 1 1 Physical Exam GENERAL: In NAD. SKIN: Warm and dry. HEAD: Normocephalic. EYES: No scleral icterus. No injection or drainage. NECK: Supple, trachea midline. No JVD or lymphadenopathy. CARDIOVASCULAR: Regular rate and rhythm, without murmurs, gallops, or rubs. RESPIRATORY: Breath sounds equal bilaterally. No accessory muscle use. Clear. GASTROINTESTINAL: Abdomen soft, non-tender, nondistended. MUSCULOSKELETAL: No cyanosis, LE edema improved. Laboratory Laboratory Tests Test 10/08/17 08:50 Random Glucose 67 MG/DL Assessment and Plan Problem List: (1) Congestive heart failure ICD Codes: I50.9 - Heart failure, unspecified Status: Acute (2) Pleural effusion ICD Codes: J90 - Pleural effusion, not elsewhere classified (3) CAD (coronary artery disease) ICD Codes: I25.10 - Atherosclerotic heart disease of [place] coronary artery without angina pectoris Status: Chronic (4) Diabetes mellitus with peripheral vascular disease ICD Codes: E11.51 - Type 2 diabetes mellitus with diabetic peripheral angiopathy without gangrene Status: Chronic (5) CONOR (acute kidney injury) ICD Codes: N17.9 - Acute kidney failure, unspecified Status: Acute (6) HTN (hypertension) ICD Codes: I10 - Essential (primary) hypertension Status: Chronic (7) Pneumonia ICD Codes: J18.9 - Pneumonia, unspecified organism Assessment and Plan No SOB; edema improved with diuresis. Continue diuresis, switch to PO, closely monitor renal function, has stage 4 CKD, but still diuresed well with negative I /O's. Nephrology following. She has LV diastolic dysfunction, recent echo showed preserved LV systolic fx. No evidence of ACS. Increase activity, PT. Anticipate transfer to rehab as planned. D/w pt. Will schedule f/u with me once rehab completed. Problem Qualifiers (1) Congestive heart failure: Qualified Codes: I50.23 - Acute on chronic systolic (congestive) heart failure Dunia Reddy MD Oct 08, 2017 15:48
--- NOTE | 2017-10-08 18:56 | HHI.PR ---
Subjective Remarks 66 YOWF with COPD,PL eff Lung infilt, Resp Insuff Breathing better Weaned to 3LNC " I will be going to rehab" Objective Vital Signs Vital Signs Date Time Temp Pulse Resp B/P (MAP) Pulse Ox O2 Delivery O2 Flow Rate FiO2 10/08/17 16:00 97.6 77 20 123/64 (83) 90 10/08/17 12:00 98.0 64 20 157/68 (97) 92 10/08/17 08:05 60 10/08/17 08:00 98.0 61 20 156/62 (93) 96 10/08/17 07:15 96 Nasal Cannula 5.00 10/08/17 04:00 Nasal Cannula 5.00 10/08/17 04:00 97.8 61 20 150/67 (94) 94 10/08/17 00:00 98.0 58 20 167/71 (103) 94 10/08/17 00:00 Nasal Cannula 5.00 10/07/17 20:00 Nasal Cannula 5.00 10/07/17 20:00 63 10/07/17 19:30 98.1 61 24 156/70 (98) 96 I/O 10/07/17 10/07/17 10/07/17 10/08/17 10/08/17 10/08/17 07:00 15:00 23:00 07:00 15:00 23:00 Intake Total 480 ml 480 ml 120 ml Output Total 1600 ml 1000 ml 1200 ml 775 ml Balance -1120 ml -520 ml -1080 ml -775 ml Intake Oral 480 ml 480 ml 120 ml Output Urine Total 1600 ml 1000 ml 1200 ml 775 ml # Bowel Movements 1 1 1 Result Diagram: 10/05/17 0620 10/08/17 0850 Objective Remarks GENERAL: Elderly WF, mild sob SKIN: Warm and dry. HEAD: Normocephalic. EYES: No scleral icterus. No injection or drainage. NECK: Supple, trachea midline. No JVD or lymphadenopathy. CARDIOVASCULAR: Regular rate and rhythm without murmurs, gallops, or rubs. RESPIRATORY: Breath sounds equal bilaterally. No accessory muscle use. GASTROINTESTINAL: Abdomen soft, non-tender, nondistended. MUSCULOSKELETAL: No cyanosis, or edema. BACK: Nontender without obvious deformity. No CVA tenderness. A/P Assessment and Plan Pleural eff, s/p TC COPD Resp insuff DM PLAN: Supplement 02 , 3LNC Cont Abx Monitor BS Pred 20 mg po bid Use Acapella. wean to NC to keep sat >88% DC Plans for rehab Aaron Blankenship MD Oct 08, 2017 18:56
[2017-10-08] MEDS: RESP: ALBUTEROL 2.5 MG/IPRATROPIUM 0.5 MG NEB (PRN) NEB (20:31)
[2017-10-09] VITALS: BP 157/70; PULSE 75; RESP 14; TEMP 97.8; O2SAT 94
[2017-10-09 04:00] VITALS: BP 179/78; PULSE 67; RESP 14; TEMP 97.8; O2SAT 94
[2017-10-09] MEDS: ISOSORBIDE MONONITRATE 60 MG TAB PO SCH (06:08)
[2017-10-09] MEDS: SODIUM CHLORIDE 0.9% FLUSH 10 ML FLUSH IV FLUSH SCH (07:20)
[2017-10-09 08:00] VITALS: BP 146/65; PULSE 68; RESP 20; TEMP 97.6; O2SAT 85
[2017-10-09 08:13] LABS: BICARBONATE 28.8 MEQ/L (21.0-32.0); POTASSIUM 3.9 MEQ/L (3.5-5.1)
[2017-10-09] MEDS: INSULIN DETEMIR 100 UNITS/ML VIAL SQ SCH ×2 (08:41→08:44)
[2017-10-09] MEDS: INSULIN ASPART SUPPLEMENTAL SCALE SQ SCH ×2 (08:41→12:59)
[2017-10-09] MEDS: INSULIN ASPART 1,000 UNITS/10 ML VIAL SQ SCH ×2 (08:41→12:59)
[2017-10-09] MEDS: FUROSEMIDE 40 MG/4 ML VIAL IV PUSH SCH (08:42)
[2017-10-09] MEDS: PRASUGREL 10 MG TAB PO SCH (08:42)
[2017-10-09] MEDS: ASPIRIN 81 MG CHEW TAB CHEW SCH (08:42)
[2017-10-09] MEDS: predniSONE 10 MG TAB PO SCH (08:42)
[2017-10-09] MEDS: NIFEdipine 60 MG SUSTAINED RELEASE TAB PO SCH (08:42)
[2017-10-09] MEDS: METOPROLOL TARTRATE 50 MG TAB PO SCH (08:42)
[2017-10-09] MEDS: NYSTATIN 100,000 U/GM PWD 15 GM BTL TOPICAL SCH (08:42)
[2017-10-09] MEDS: METOLAZONE 5 MG TAB PO SCH (08:42)
[2017-10-09] MEDS ORDERED: predniSONE 5 MG TAB PO SCH (09:30)
--- NOTE | 2017-10-09 09:33 | HHI.PR ---
Subjective Remarks feeling better states had a good night laying flat in bed no shortness of breath BP 140/65 Objective Vitals Vital Signs Date Time Temp Pulse Resp B/P (MAP) Pulse Ox O2 Delivery O2 Flow Rate FiO2 10/09/17 04:00 97.8 67 14 179/78 (111) 94 10/09/17 00:00 97.8 75 14 157/70 (99) 94 10/08/17 20:00 97.7 74 14 136/86 (103) 90 10/08/17 20:00 Nasal Cannula 5.00 50 Humidified 10/08/17 20:00 76 10/08/17 16:00 97.6 77 20 123/64 (83) 90 10/08/17 12:00 98.0 64 20 157/68 (97) 92 I/O 10/08/17 10/08/17 10/08/17 10/09/17 10/09/17 10/09/17 07:00 15:00 23:00 07:00 15:00 23:00 Intake Total 120 ml 480 ml Output Total 1200 ml 775 ml 1600 ml Balance -1080 ml -775 ml 480 ml -1600 ml Intake Oral 120 ml 480 ml Output Urine Total 1200 ml 775 ml 1600 ml # Voids 0 0 # Bowel Movements 1 1 1 Result Diagram: 10/05/17 0620 10/09/17 0730 Imaging Last Impressions Thoracentesis Ultrasound 10/03/17 0000 Signed Impressions: Service Date/Time: Tuesday, October 03, 2017 17:07 - CONCLUSION: Uncomplicated ultrasound guided thoracentesis. Rafa Rocha MD Chest X-Ray 10/03/17 0000 Signed Impressions: Service Date/Time: Tuesday, October 03, 2017 18:06 - CONCLUSION: Left pleural effusion now small. No pneumothorax. Moderate to large right pleural effusion not significantly changed. Rafa Rocha MD Chest Ultrasound 10/02/17 0000 Signed Impressions: Service Date/Time: Monday, October 02, 2017 14:22 - CONCLUSION: Greater than 800 cc right pleural effusion. Please see above. Rafa Rocha MD Renal Ultrasound 09/30/17 0000 Signed Impressions: Service Date/Time: September 20:15 - CONCLUSION: 1. No evidence of hydronephrosis. 2. Right pleural effusion. 3. Lim catheter in bladder. Nura Niño MD Chest CT 09/24/17 0000 Signed Impressions: Service Date/Time: Sunday, September 24, 2017 20:50 - CONCLUSION: 1. Moderate size bilateral pleural effusions, slightly increased compared with February. Moderate anasarca. 2. Compressive and subsegmental atelectasis in both lungs. 3. Moderate to severe coronary calcifications. 4. Negative for thoracic aortic aneurysm. No acute findings in the upper abdomen. Amadou Salazar MD Objective Remarks awake and alert, no acute distress anicteric mild decreased breath sounds and vocal fremiti on the left c/w to right, no rales or wheezes regular rhythm abdomen soft, nontender extremities - decrease edema, dry wound- no sings of infection- right leg neuro exam- non focal Procedures US guided right sided thoracentesis on 09/27/2017. 08/11/2017 Echo (Prior admission). The left ventricular systolic function is normal with an estimated ejection fraction in the range of 60-65%. Normal left ventricular size. Mild concentric left ventricular hypertrophy. No regional wall motion abnormalities are present. Structurally normal mitral valve. Trace mitral regurgitation. Date of Insertion: Oct 05, 2017 Date of Removal: Oct 08, 2017 A/P Assessment and Plan 66 y/o female with a history of C Diff, Chronic right lower extremity ulcer secondary to a dog bite, Diastolic CHF, pleural effusion, DM, CAD, CKD, COPD, HTN, GERD, and Bone marrow suppression presented to the ED with shortness of breath. Symptomatic CHF exacerbation, BNP 930- with dyspnea on exertion and at rest, peripheral edema- persists Acute respiratory failure 2/2/ CHF/ COPD exacerbation/ pleural effusion S/P thoracentesis Chest CT reviewed and shows moderate size bilateral pleural effusions, slightly increased from February. -Continue Lasix IV BID- diurresing weel- change to po bid 40 mg - continue metolazone 5 mg bid -Dr. Reddy ff- OP ff up with him -Fluid restriction 1200ml - likely will be 02 deoendent- keep on 02 NC 2-3 L keep sat > 90% Pleural effusion, s/p thoracocentesis 09/28/17 Repeat CXR reviewed with moderated to large effusions bilaterally right >left. Will repeat thoracentesis 10/03/17 on left side. Repeat thoracentesis on right side 10/04/17 and will order therapeutic and diagnostic as well. COPD Acute Respiratory failure 2/2/ chf ecac. COPD, pleural effusion Supplement O2 , keep O2 sat > 92 % decrease Prednisone to 5 mg po bid today 10/09- slow taper Monitor BS Pulm ff Dr Blankenship appreciate recommendations - OP ff up may be 02 requiring- E coli UTI- S/P levaquin course- 10/08 Hypokalemia, corrected -Replaced, monitor and replace as need as patien ton diuretics Chronic right leg ulcer, and new right heel ulcer- no signs of infection -wound care - VAseline gauze dressing daily -Dressing per wound care DM2,chronic -ACCU checks AC/HS with SSI CKD 4 , chronic, creatine at baseline 1.8: cont to monitor, avoid nephrotoxins. Monitor closely kidney function as patient on lasix. - OP ff up with nephrology- Dr. Toro HTN, chronic: Reordered home medication metoprolol and lisinopril, Will order prns as needed DVT prophylaxis: Heparin Discussed Condition With Patient and nurse PT consult- increase activity DC to rehab Luis Gunn MD Oct 09, 2017 09:33
[2017-10-09] MEDS ORDERED: FURO40TA PO (09:50)
[2017-10-09] MEDS ORDERED: METO5TAB3 PO (09:50)
[2017-10-09] MEDS ORDERED: NIFE60TA8 PO (09:50)
[2017-10-09] MEDS ORDERED: HYDR-3516 PO (09:50)
[2017-10-09] MEDS ORDERED: NOVOLOGP2 SQ (09:50)
[2017-10-09] MEDS ORDERED: PRED5TAB PO (09:57)
[2017-10-09] MEDS ORDERED: Albuterol-Ipratropium Neb NEB (09:59)
--- NOTE | 2017-10-09 10:03 | HHI.DS ---
Discharge Summary Admission Date Oct 05, 2017 at 14:16 Discharge Date: Oct 09, 2017 Admitting Diagnosis congestive heart failure (1) Respiratory failure ICD Code: J96.90 - Respiratory failure, unspecified, unspecified whether with hypoxia or hypercapnia (2) Congestive heart failure ICD Code: I50.9 - Heart failure, unspecified Diagnosis: Principal Status: Acute (3) Pleural effusion ICD Code: J90 - Pleural effusion, not elsewhere classified Diagnosis: Principal (4) CONOR (acute kidney injury) ICD Code: N17.9 - Acute kidney failure, unspecified Status: Acute (5) Diabetes mellitus with peripheral vascular disease ICD Code: E11.51 - Type 2 diabetes mellitus with diabetic peripheral angiopathy without gangrene Diagnosis: Secondary Status: Chronic Procedures US guided right sided thoracentesis on 09/27/2017. 08/11/2017 Echo (Prior admission). The left ventricular systolic function is normal with an estimated ejection fraction in the range of 60-65%. Normal left ventricular size. Mild concentric left ventricular hypertrophy. No regional wall motion abnormalities are present. Structurally normal mitral valve. Trace mitral regurgitation. Brief History - From Admission Written by NICHOLAS Lawson acting as scribe for Dr. Laguerre] on 09/24/17 at 22:56. 66 y/o female with a history of C Diff, Chronic right lower extremity ulcer secondary to a dog bite, Diastolic CHF, pleural effusion, DM, CAD, CKD, COPD, HTN, GERD, and Bone marrow suppression presented to the ED with complaints of shortness of breath. She states for the last few weeks she has been having increasing dyspnea and swelling in her lower extremities. She states she doesn' t think her Lasix is working. When asked if she is watching the amount of fluid that she takes in she says no, and that no one told her to limit it. She denies any chest pain, fever or chills. She does complain of dysuria since Wednesday. CBC/BMP: 10/05/17 0620 10/09/17 0730 Significant Findings Laboratory Tests Test 10/07/17 06:38 10/08/17 08:50 10/09/17 07:30 Blood Urea Nitrogen 72 MG/DL (7-18) 80 MG/DL (7-18) Creatinine 2.23 MG/DL (0.50-1.00) 2.36 MG/DL (0.50-1.00) Random Glucose 118 MG/DL (74-106) 67 MG/DL (74-106) 342 MG/DL (74-106) Chloride Level 108 MEQ/L (98-107) Estimat Glomerular Filtration Rate 22 ML/MIN (>89) 21 ML/MIN (>89) Calcium Level 8.1 MG/DL (8.5-10.1) Imaging Last Impressions Thoracentesis Ultrasound 10/03/17 0000 Signed Impressions: Service Date/Time: Tuesday, October 03, 2017 17:07 - CONCLUSION: Uncomplicated ultrasound guided thoracentesis. Rafa Rocha MD Chest X-Ray 10/03/17 0000 Signed Impressions: Service Date/Time: Tuesday, October 03, 2017 18:06 - CONCLUSION: Left pleural effusion now small. No pneumothorax. Moderate to large right pleural effusion not significantly changed. Rafa Rocha MD Chest Ultrasound 10/02/17 0000 Signed Impressions: Service Date/Time: Monday, October 02, 2017 14:22 - CONCLUSION: Greater than 800 cc right pleural effusion. Please see above. Rafa Rocha MD Renal Ultrasound 09/30/17 0000 Signed Impressions: Service Date/Time: September 20:15 - CONCLUSION: 1. No evidence of hydronephrosis. 2. Right pleural effusion. 3. Lim catheter in bladder. Nura Niño MD Chest CT 09/24/17 0000 Signed Impressions: Service Date/Time: Sunday, September 24, 2017 20:50 - CONCLUSION: 1. Moderate size bilateral pleural effusions, slightly increased compared with February. Moderate anasarca. 2. Compressive and subsegmental atelectasis in both lungs. 3. Moderate to severe coronary calcifications. 4. Negative for thoracic aortic aneurysm. No acute findings in the upper abdomen. Amadou Salazar MD PE at Discharge awake and alert, no acute distress anicteric mild decreased breath sounds and vocal fremiti on the left c/w to right, no rales or wheezes regular rhythm abdomen soft, nontender extremities - decrease edema, dry wound- no sings of infection- right leg neuro exam- non focal Pt update on day of discharge good sats at 3LNC very motivated no complains leg swelling improving good po voiding well Hospital Course 66 y/o female with a history of C Diff, Chronic right lower extremity ulcer secondary to a dog bite, Diastolic CHF, pleural effusion, DM, CAD, CKD, COPD, HTN, GERD, and Bone marrow suppression presented to the ED with shortness of breath. Symptomatic CHF exacerbation, BNP 930- with dyspnea on exertion and at rest, peripheral edema- persists Acute respiratory failure 2/2/ CHF/ COPD exacerbation/ pleural effusion S/P thoracentesis Chest CT reviewed and shows moderate size bilateral pleural effusions, slightly increased from February. -Continue Lasix IV BID- gisela fleming- change to po bid 40 mg - continue metolazone 5 mg bid -Dr. Reddy ff- OP ff up with him -Fluid restriction 1200ml - likely will be 02 deoendent- keep on NC 2-3 L keep sat > 90% Pleural effusion, s/p thoracocentesis 09/28/17 Repeat CXR reviewed with moderated to large effusions bilaterally right >left. Will repeat thoracentesis 10/03/17 on left side. Repeat thoracentesis on right side 10/04/17 and will order therapeutic and diagnostic as well. COPD Acute Respiratory failure 2/2/ chf ecac. COPD, pleural effusion Supplement O2 , keep O2 sat > 92 % decrease Prednisone to 5 mg po bid today 10/09- slow taper Monitor BS Pulm ff Dr Blankenship appreciate recommendations - OP ff up may be 02 requiring- E coli UTI- S/P levaquin course- 10/08 Hypokalemia, corrected -Replaced, monitor and replace as need as patien ton diuretics Chronic right leg ulcer, and new right heel ulcer- no signs of infection -wound care - VAseline gauze dressing daily -Dressing per wound care DM2,chronic -ACCU checks AC/HS with SSI CKD 4 , chronic, creatine at baseline 1.8: cont to monitor, avoid nephrotoxins. Monitor closely kidney function as patient on lasix. - OP ff up with nephrology- Dr. Toro HTN, chronic: Reordered home medication metoprolol and lisinopril, Will order prns as needed DVT prophylaxis: Heparin Discussed Condition With Patient and nurse PT ff increase activity DC to rehab Pt Condition on Discharge: Stable Discharge Disposition: Discharge to SNF Discharge Time: <= 30 minutes Discharge Instructions DIET: Follow Instructions for: Heart Healthy Diet Speech Therapy-Diet Recommends: Regular Additional Diet Instructions: 2 gm Na diet keep in negative balance Activities you can perform: Weight Bearing as Julienne Other Activity Instructions: PT supervision Follow up Referrals: Cardiology - 3-5 Days with Dunia Reddy MD Nephrology - 3-5 Days with [facility] PCP Follow-up - 10/11/17 with PCP Pulmonology - 3-5 Days with Aaron Blankenship MD New Orders: BASIC METABOLIC PROF - 10/11/17 New Medications: Furosemide (Furosemide) 40 Mg Tab 40 MG PO BID@,18 for CHF for 30 Days, #60 TAB Hydrocodone/Acetaminophen (Hydrocodone-Acetamin 5-325 mg) 5 Mg-325 Mg Tablet 1 TAB PO Q6HR PRN for pain 1-10 for 5 Days, #20 TAB 0 Refills i tab prn for pain Insulin Aspart Inj (Novolog Inj) 1,000 Unit/10 Ml Vial 4 UNITS SQ TIDAC for DM for 30 Days, #1 INJECTION Metolazone (Metolazone) 5 Mg Tab 5 MG PO BID for CHF for 30 Days, #60 TAB Nifedipine ER 24 HR (Nifedipine ER 24 HR) 60 Mg Tab 60 MG PO Q12HR for HTN for 30 Days, #60 TAB Prednisone (Prednisone) 5 Mg Tab 5 MG PO BID for EBONY for 6 Days, #9 TAB take 5 mg po bid x 3 days then 5 mg po daily x 3 days then DC [Albuterol-Ipratropium Neb] () 1 AMPULE NEBU 1 AMPULE NEB Q4-6H PRN for SHORTNESS OF BREATH for 14 Days, #60 NEBULE Continued Medications: Aspirin (Aspirin) 81 Mg Chew 81 MG CHEW DAILY, TAB 0 Refills Insulin Aspart Inj (Novolog Inj) 100 Unit/Ml Inj 1 UNITS SQ ACHS SLIDING SCALE for Blood Sugar Management for 30 Days, INJECTION Sliding Scale As Directed.150-199 1 Unit; 200-249 3 units; 250-299 5 Units; 300-349 7 Units; Insulin Detemir Inj (Levemir Inj) 1,000 unit/ 10 ML Vial 8 UNITS SQ DAILYAC for Blood Sugar Management, VIAL 0 Refills Do not mix with any other Insulin. Isosorbide Mononitrate ER (Isosorbide Mononitrate ER) 60 Mg Tab 60 MG PO DAILY for Prevent Chest Pain, #30 TAB 0 Refills Metoprolol Tartrate (Metoprolol Tartrate) 50 Mg Tab 50 MG PO BID, #60 TAB 0 Refills Prasugrel (Effient) 10 Mg Tab 10 MG PO DAILY for Blood Clot Prevention, #30 TAB 0 Refills Discontinued Medications: Amlodipine (Norvasc) 5 Mg Tab 5 MG PO BID for Blood Pressure Management, #60 TAB Furosemide (Lasix) 40 Mg Tab 40 MG PO DAILY for edema , #30 TAB 0 Refills Lisinopril (Lisinopril) 5 Mg Tab 5 MG PO DAILY for Blood Pressure Management, #30 TAB 0 Refills Luis Gunn MD Oct 09, 2017 10:03
[2017-10-09] MEDS: HEPARIN SODIUM - SQ 10,000 UNITS/ML VIAL SQ SCH (10:15)
[2017-10-09 12:00] VITALS: BP 135/62; PULSE 66; RESP 20; TEMP 97.6; O2SAT 91
--- NOTE | 2017-10-09 12:08 | HHI.NPPN ---
Subjective Renal Failure: Stage IV History of Present Illness 66-year-old female with past medical history of hypertension, ischemic heart disease, congestive heart failure, history of chronic kidney disease, diabetes mellitus who was admitted on September 24 with worsening shortness of breath. I was called to see the patient because of elevated BUN and creatinine. The patient has known history of chronic kidney disease and baseline creatinine seems to be close to 1.5-1.8. Additional Remarks Patient is alert, breathing is better, now with nasal cannula, eating has low BS in AM. Review of Systems General Constitutional: Fatigue Respiratory Lungs: SOB, Sputum, Wheeze Cardiovascular Cardiac: Edema, KAMARA Objective Data Data Vital Signs Date Time Temp Pulse Resp B/P (MAP) Pulse Ox O2 Delivery O2 Flow Rate FiO2 10/09/17 08:00 97.6 68 20 146/65 (92) 85 10/09/17 04:00 97.8 67 14 179/78 (111) 94 10/09/17 00:00 97.8 75 14 157/70 (99) 94 10/08/17 20:00 97.7 74 14 136/86 (103) 90 10/08/17 20:00 Nasal Cannula 5.00 50 Humidified 10/08/17 20:00 76 10/08/17 16:00 97.6 77 20 123/64 (83) 90 -: 10/05/17 0620 10/09/17 0730 Physical Exam General Appearance: Well Nourished, No Acute Distress, Comfortable Eyes Eye Exam: Pupils Equal Throat Throat Exam: Oral Mucosa Kerrick & Moist Neck Neck Exam: Neck Supple Pulmonary Resp Exam: Breath Sounds Equal, No Distress, Rhonchi, Decreased Bases, Diminished Breath Sounds Cardiology CV Exam: Regular, Normal Sinus Rhythm Gastrointestinal/Abdomen GI Exam: Soft, Non-Tender, Bowel Sounds Present Extremeties Extremities Exam: Moderate Edema, Pitting Edema, Dependent Edema Neurologic Neuro Exam: Alert, Awake, Oriented Psychiatric Psych Exam: Appropriate Responses Assessment/Plan Assessment Summary: CONOR/Acute Renal Failure, CHF, Hypertension, CKD Stage IV Problem List: (1) Stage 4 chronic kidney disease ICD Codes: N18.4 - Chronic kidney disease, stage 4 (severe) (2) Hypertension ICD Codes: I10 - Essential (primary) hypertension Status: Chronic (3) Anemia, iron deficiency ICD Codes: D50.9 - Iron deficiency anemia, unspecified Status: Chronic (4) COPD (chronic obstructive pulmonary disease) ICD Codes: J44.9 - Chronic obstructive pulmonary disease, unspecified Status: Chronic (5) Congestive heart failure ICD Codes: I50.9 - Heart failure, unspecified Status: Acute (6) Anemia ICD Codes: D64.9 - Anemia, unspecified Status: Chronic (7) Acute kidney insufficiency ICD Codes: N28.9 - Disorder of kidney and ureter, unspecified Status: Acute Plan Patient has stage 4 chronic kidney disease, with baseline Creatinine close to 1.5-1.8. 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 Now develop CONOR and fluid retention. On Lasix, IV Albumin and also on Metolazone. Keep in negative fluid balance. 24 HR. urine protein showing 3.7 gm proteinuria. On Metolazone to BID and Lasix. Thoracentesis done and 1250 ml removed. Continue diuresis, Avoid Nephrotoxins, follow BMP. Edema is better, Creatinine was stable yesterday. cr 2.3 going to be dc per patient FU with Dr. Toro Problem Qualifiers (1) Hypertension: Qualified Codes: I10 - Essential (primary) hypertension (2) Congestive heart failure: Qualified Codes: I50.23 - Acute on chronic systolic (congestive) heart failure Rigoberto Blue MD Oct 09, 2017 12:08
[2017-10-09] MEDS ORDERED: FUROSEMIDE 40 MG TAB PO SCH (18:00)
== END 2017-10-09 17:02 | disposition home health service (06) | DRG 291 ==
LOC: NEPC 19:39 → NEDA 22:47 → UNDOADMIN 22:47 → NEDA 23:51 → INTOOBSV 23:51 → NEPFCDU 09-25 01:08 → NEDA 09-25 01:08 → NEPFCDU 09-25 18:17 → NEPHCDU 09-25 18:17 → HCIS 09-26 03:54 → HCIN 09-26 15:36 → HIMW 09-26 18:47 → N04B 09-30 14:58 → HIMW 09-30 14:58 → OBSVTOIN 10-05 14:16
PROVIDERS: ADMIT Internal Medicine; ATTEND Internal Medicine
PROC: 0W9B3ZZ Drainage of Left Pleural Cavity, Percutaneous Approach (ICD-10-PCS; principal; 2017-10-03)
DX: I13.0 Hypertensive heart and chronic kidney disease with heart failure and stage 1 through stage 4 chronic kidney disease, or unspecified chronic kidney disease (principal); I50.23 Acute on chronic systolic (congestive) heart failure; J96.01 Acute respiratory failure with hypoxia; N17.9 Acute kidney failure, unspecified; J18.9 Pneumonia, unspecified organism; E11.21 Type 2 diabetes mellitus with diabetic nephropathy; N18.4 Chronic kidney disease, stage 4 (severe); J44.0 Chronic obstructive pulmonary disease with (acute) lower respiratory infection; E11.51 Type 2 diabetes mellitus with diabetic peripheral angiopathy without gangrene; D50.9 Iron deficiency anemia, unspecified; F12.10 Cannabis abuse, uncomplicated; J44.1 Chronic obstructive pulmonary disease with (acute) exacerbation; L97.419 Non-pressure chronic ulcer of right heel and midfoot with unspecified severity; L97.919 Non-pressure chronic ulcer of unspecified part of right lower leg with unspecified severity; N39.0 Urinary tract infection, site not specified; J98.11 Atelectasis; E11.22 Type 2 diabetes mellitus with diabetic chronic kidney disease; E11.621 Type 2 diabetes mellitus with foot ulcer; Z79.01 Long term (current) use of anticoagulants; G43.909 Migraine, unspecified, not intractable, without status migrainosus; Z79.4 Long term (current) use of insulin; Z79.82 Long term (current) use of aspirin; M19.90 Unspecified osteoarthritis, unspecified site; I25.2 Old myocardial infarction; I25.10 Atherosclerotic heart disease of native coronary artery without angina pectoris; K44.9 Diaphragmatic hernia without obstruction or gangrene; Z95.5 Presence of coronary angioplasty implant and graft; Z87.891 Personal history of nicotine dependence; R30.0 Dysuria; E87.6 Hypokalemia; W54.0XXD Bitten by dog, subsequent encounter; E66.9 Obesity, unspecified; K21.9 Gastro-esophageal reflux disease without esophagitis; B96.4 Proteus (mirabilis) (morganii) as the cause of diseases classified elsewhere; I34.0 Nonrheumatic mitral (valve) insufficiency; Z86.19 Personal history of other infectious and parasitic diseases; B96.20 Unspecified Escherichia coli [E. coli] as the cause of diseases classified elsewhere
CPT/HCPCS: 32555; 36600; 71010; 71250; 76604; 76775; 76937; 80048; 80053; 81001; 82150; 82550; 82552; 82570; 82805; 82945; 82947; 82948; 83615; 83735; 83880; 83986; 84157; 84300; 84484; 85025; 85027; 85610; 85730; 87015; 87070; 87077; 87086; 87186; 87205; 87641; 89051; 93005; 94002; 94003; 94150; 94640; 94664; 94667; 94668; 96365; 96372; 96375; 96376; C1729; G0378; J0360; J0696; J1644; J1815; J1940; J2543; J2920; J2930; J3370; J7040; J7512; P9047

== ENCOUNTER 2017-10-27 01:49 | Inpatient (IN) | payer MEDICARE, BC ==
[2017-10-27] VITALS (23 sets, daily range): BP systolic 106–163; BP diastolic 47–70; PULSE 7–82; RESP 18–25; TEMP 96.8–98.8; O2SAT 90–99
[~2017-10-27] VITALS: Ht 162.6 cm; Wt 90.4 kg
[~2017-10-27 01:49] MED LIST changes: -AMLO5 PO; +Albuterol-Ipratropium Neb NEB; -FURO1TAB60 PO; +FURO40TA PO; +HYDR-3516 PO; -ISOS30TA3 PO; +ISOS60TA PO; -LISI-519 PO; +METO5TAB3 PO; +NIFE60TA8 PO; +NOVOLOGP2 SQ; +PRED5TAB PO
--- NOTE | 2017-10-27 02:11 | PD ---
HPI Chief Complaint: Respiratory Distress Time Seen by Provider: 01:54 Travel History International Travel<30 days: No Contact w/Intl Traveler<30days: No Traveled to known affect area: No History of Present Illness HPI The patient is a 66 year old female who presents to the [facility] emergency department with a history of increased shortness of breath over the last 3 days. She reports that she has chronic shortness of breath at baseline and is normally on 3 L nasal cannula O2 continuously. She reports that she's been in cardiac rehabilitation for the last 2 weeks after a recent admission to the hospital. The patient reports that she does have a history of congestive heart failure and COPD. The patient during hospitalization did have a pleural effusion that was drained. On review of systems, the patient denies having any known recent fevers, worsening cough or congestion, neck pain, shortness of breath, abdominal pain, vomiting, diarrhea, urinary symptoms, or neurologic symptoms. On arrival, the patient's O2 saturation on room air was down to 81%. FOR[facility]LY [facility] Past Medical History Narrative Medical The patient's past medical history is significant for chronic renal insufficiency, hypertension, coronary artery disease, congestive heart failure, COPD, diabetes mellitus, acid reflux. Hx Anticoagulant Therapy: Yes (ASPIRIN ) Anemia: Yes (iron deficiency) Arthritis: Yes Asthma: Yes Anxiety: No Depression: No Heart Rhythm Problems: No Cancer: No Cardiovascular Problems: Yes High Cholesterol: No Chemotherapy: No Chest Pain: No Congestive Heart Failure: Yes COPD: Yes Cerebrovascular Accident: No Coronary Artery Disease: Yes Diabetes: Yes Diminished Hearing: No Endocrine: No Gastrointestinal Disorders: No GERD: No Genitourinary: Yes Headaches: No Hepatitis: No Hiatal Hernia: Yes Hypertension: Yes Immune Disorder: No Implanted Vascular Access Dvce: No Kidney Stones: No Musculoskeletal: Yes Neurologic: Yes Psychiatric: No Reproductive: Yes Respiratory: Yes Immunizations Current: Yes Migraines: Yes Myocardial Infarction: Yes Radiation Therapy: No Renal Failure: No Seizures: No Sleep Apnea: No Thyroid Disease: No Ulcer: No ?: Not Menopausal: Yes : 1 Para: 1 Miscarriage: 0 Past Surgical History Narrative Surgical The patient's past surgical history is significant for an appendectomy, cardiac catheterization with stent placement, , hysterectomy, tonsillectomy, history of neck surgery. Abdominal Surgery: Yes (APPENDECTOMY) AICD: No Appendectomy: Yes Body Medical Devices: CARDIAC STENTS X3 Cardiac Surgery: Yes (STENT PLACEMENT) Section: Yes Coronary Stent: Yes Ear Surgery: No Endocrine Surgery: No Eye Surgery: No Genitourinary Surgery: No Gynecologic Surgery: Yes (HYSTERECTOMY) Hysterectomy: Yes Neurologic Surgery: No Oral Surgery: Yes (TONSILS) Pacemaker: No Thoracic Surgery: No Tonsillectomy: Yes (ADENOIDS) Other Surgery: Yes (LEFT WRIST GANGLION CYST) Social History Alcohol Use: No Tobacco Use: No (QUIT 2001) Substance Use: Yes (MEDICAL MARIJUANA ) Allergies-Medications (Allergen,Severity, Reaction): Coded Allergies: propoxyphene (Unverified Allergy, Mild, RASH, 10/27/17) Reported Meds & Prescriptions Reported Meds & Active Scripts Active [Albuterol-Ipratropium Neb] 1 AMPULE Nebu 1 Ampule NEB Q4-6H PRN 14 Days Prednisone 5 Mg Tab 5 Mg PO BID 6 Days take 5 mg po bid x 3 days then 5 mg po daily x 3 days then DC Novolog Inj (Insulin Aspart) 1,000 Unit/10 Ml Vial 4 Units SQ TIDAC 30 Days Hydrocodone-Acetamin 5-325 mg (Hydrocodone/Acetaminophen) 5 Mg-325 Mg Tablet 1 Tab PO Q6HR PRN 5 Days i tab prn for pain Nifedipine ER 24 HR (Nifedipine) 60 Mg Tab 60 Mg PO Q12HR 30 Days Novolog Inj (Insulin Aspart) 100 Unit/Ml Inj 1 Units SQ ACHS SLIDING SCALE 30 Days Sliding Scale As Directed.150-199 1 Unit; 200-249 3 units; 250-299 5 Units; 300-349 7 Units; Reported Tylenol (Acetaminophen) 325 Mg Tab 325 Mg PO Q4H PRN Ipratropium Neb (Ipratropium [place]) 0.5 Mg/2.5 Ml Amp 0.5 Mg NEB Q8HR Bumetanide 2 Mg Tab 2 Mg PO BID Orazinc (Zinc Sulfate) 220 Mg (50 Mg Zinc) Cap Metolazone 2.5 Mg Tab 2.5 Mg PO DAILY Levemir Inj (Insulin Detemir) 1,000 unit/ 10 ML Vial 8 Units SQ DAILYAC Do not mix with any other Insulin. Levemir Inj (Insulin Detemir) 1,000 unit/ 10 ML Vial 8 Units SQ HS Do not mix with any other Insulin. Isosorbide Mononitrate ER (Isosorbide Mononitrate) 60 Mg Tab 60 Mg PO DAILY Metoprolol Tartrate 50 Mg Tab 50 Mg PO BID Effient (Prasugrel) 10 Mg Tab 10 Mg PO DAILY Aspirin 81 Mg Chew 81 Mg CHEW DAILY Review of Systems Except as stated in HPI: all other systems reviewed are Neg General / Constitutional: No: Fever Eyes: No: Visual changes HENT: No: Headaches Cardiovascular: Positive: Dyspnea on exertion, No: Chest Pain or Discomfort Respiratory: Positive: Cough, Shortness of Breath Gastrointestinal: No: Abdominal Pain Genitourinary: No: Dysuria Musculoskeletal: No: Pain Skin: No Rash Neurologic: No: Weakness Psychiatric: No: Depression Endocrine: No: Polydipsia Hematologic/Lymphatic: No: Easy Bruising Physical Exam Narrative General: The patient is a well-developed well-nourished female, short of breath on arrival with a prolonged expiratory phase of breathing. Head and Neck exam: Head is normocephalic atraumatic. Eyes: EOMI, pupils are equal round and reactive to light. Nose: Midline septum with pink mucous membranes Mouth: Dentition unremarkable. Moist mucus membranes. Posterior oropharynx is not erythematous. No tonsillar hypertrophy. Uvula midline. Airway patent. Neck: No palpable lymphadenopathy. No nuchal rigidity. No thyromegaly. Cardiovascular: Regular rate and rhythm without murmurs, gallops, or rubs. Lungs: Decreased breath sounds in the right lower lung base, decreased breath sounds on the left side compared to the right, crackles audible in the right lower lung base, expiratory wheezes audible bilaterally. The patient has no accessory muscle use. No paroxysmal abdominal breathing or tripoding. Abdomen: Soft, without tenderness to palpation in all 4 quadrants of the abdomen. No guarding, rebound, or rigidity. Normal bowel sounds are audible. No tenderness on palpation of McBurney's point. Extremities: No clubbing or cyanosis. The patient has 1-2+ pitting edema bilateral lower extremities. On examination of the right leg the patient has a clean, dry, and intact bandage in place. The bandage was removed and the patient has a chronic wound that appears to be healing on this leg along the medial aspect of the mid del cid that has antibiotic ointment that has been applied. 2+ pulses in all 4 extremities. Back: No costovertebral angle tenderness to palpation. Neurologic Exam: Grossly nonfocal. Skin Exam: No rash noted. Intact skin that is warm and dry. Data Data Last Documented VS Vital Signs Date Time Temp Pulse Resp B/P (MAP) Pulse Ox O2 Delivery O2 Flow Rate FiO2 10/27/17 03:30 82 18 149/67 (94) 99 Non-Rebreather 15.00 100 Orders Orders Complete Blood Count With Diff (10/27/17 02:03) Comprehensive Metabolic Panel (10/27/17 02:03) B-Type Natriuretic Peptide (10/27/17 02:03) Act Partial Throm Time (Ptt) (10/27/17 02:03) Prothrombin Time / Inr (Pt) (10/27/17 02:03) Magnesium (Mg) (10/27/17 02:03) Ckmb (Isoenzyme) Profile (10/27/17 02:03) Troponin I (10/27/17 02:03) Arterial Blood Gas (Abg) (10/27/17 02:03) Urinalysis - C+S If Indicated (10/27/17 02:03) Iv Access Insert/Monitor (10/27/17 02:03) Electrocardiogram (10/27/17 02:03) Ecg Monitoring (10/27/17 02:03) Oximetry (10/27/17 02:03) Oxygen Administration (10/27/17 02:03) Chest, Single Ap (10/27/17 02:03) Cath For Specimen (10/27/17 02:03) Sodium Chloride 0.9% Flush (Ns Flush) (10/27/17 02:15) Methylprednisolone So Succ Inj (Solumedr (10/27/17 02:15) Albuterol-Ipratropium Neb (Duoneb Neb) (10/27/17 02:15) Furosemide Inj (Lasix Inj) (10/27/17 02:15) Urine Culture (10/27/17 02:25) Urinary Catheter Insert/Apply (10/27/17 03:10) CKMB (10/27/17 02:10) CKMB% (10/27/17 02:10) Acetamin-Hydrocod 325-5 Mg ([place] 5-325 (10/27/17 04:00) Type And Screen (10/27/17 04:00) Red Blood Cells (Rbc) (10/27/17 04:00) Blood Product Administration (10/27/17 04:00) Sodium Chlor 0.9% 250 Ml Inj (Ns 250 Ml (10/27/17 04:00) Admit Order (Ed Use Only) (10/27/17 04:00) Labs Laboratory Tests Test 10/27/17 02:10 10/27/17 02:17 10/27/17 02:25 White Blood Count 5.8 TH/MM3 Red Blood Count 2.54 MIL/MM3 Hemoglobin 7.6 GM/DL Hematocrit 23.5 % Mean Corpuscular Volume 92.3 FL Mean Corpuscular Hemoglobin 30.0 PG Mean Corpuscular Hemoglobin Concent 32.4 % Red Cell Distribution Width 16.0 % Platelet Count 245 TH/MM3 Mean Platelet Volume 8.6 FL Neutrophils (%) (Auto) 82.2 % Lymphocytes (%) (Auto) 11.8 % Monocytes (%) (Auto) 4.9 % Eosinophils (%) (Auto) 0.6 % Basophils (%) (Auto) 0.5 % Neutrophils # (Auto) 4.7 TH/MM3 Lymphocytes # (Auto) 0.7 TH/MM3 Monocytes # (Auto) 0.3 TH/MM3 Eosinophils # (Auto) 0.0 TH/MM3 Basophils # (Auto) 0.0 TH/MM3 CBC Comment DIFF FINAL Differential Comment Prothrombin Time 9.8 SEC Prothromb Time International Ratio 0.9 RATIO Activated Partial Thromboplast Time 24.9 SEC Blood Urea Nitrogen 65 MG/DL Creatinine 2.22 MG/DL Random Glucose 195 MG/DL Total Protein 6.0 GM/DL Albumin 2.5 GM/DL Calcium Level 9.2 MG/DL Magnesium Level 2.3 MG/DL Alkaline Phosphatase 164 U/L Aspartate Amino Transf (AST/SGOT) 31 U/L Alanine Aminotransferase (ALT/SGPT) 25 U/L Total Bilirubin 0.3 MG/DL Sodium Level 144 MEQ/L Potassium Level 5.5 MEQ/L Chloride Level 109 MEQ/L Carbon Dioxide Level 21.4 MEQ/L Anion Gap 14 MEQ/L Estimat Glomerular Filtration Rate 22 ML/MIN Total Creatine Kinase 104 U/L Creatine Kinase MB 6.5 NG/ML Troponin I 0.02 NG/ML B-Type Natriuretic Peptide 504 PG/ML Blood Gas Puncture Site RT RADIAL Blood Gas Patient Temperature 37.0 Blood Gas HCO3 19 mmol/L Blood Gas Base Excess -5.5 mmol/L Blood Gas Oxygen Saturation 92 % Arterial Blood pH 7.34 Arterial Blood Partial Pressure CO2 37 mmHg Arterial Blood Partial Pressure O2 71 mmHG Arterial Blood Oxygen Content 14.0 Vol % Arterial Blood Carboxyhemoglobin 1.3 % Arterial Blood Methemoglobin 0.4 % Blood Gas Hemoglobin 10.8 G/DL Oxygen Delivery Device NONE REBREATHER Blood Gas Liter Flow 15 L/M Blood Gas Inspired Oxygen 100 % Urine Color LIGHT-YELLOW Urine Turbidity HAZY Urine pH 5.5 Urine Specific [place] 1.012 Urine Protein 100 mg/dL Urine Glucose (UA) TRACE mg/dL Urine Ketones 10 mg/dL Urine Occult Blood TRACE Urine Nitrite NEG Urine Bilirubin NEG Urine Urobilinogen LESS THAN 2.0 MG/DL Urine Leukocyte Esterase NEG Urine RBC 1 /hpf Urine WBC 3 /hpf Urine WBC Clumps OCC Urine Squamous Epithelial Cells <1 /hpf Urine Amorphous Sediment FEW Urine Bacteria MOD /hpf Urine Hyaline Casts 10 /lpf Microscopic Urinalysis Comment CATH-CULTURE IND MDM Medical Decision Making Medical Screen Exam Complete: Yes Emergency Medical Condition: Yes Medical Record Reviewed: Yes Differential Diagnosis CHF exacerbation, versus COPD exacerbation, versus pneumonia, versus recurrent pleural effusion, versus acute coronary syndrome Narrative Course During the course of the patients emergency department visit, the patients history, examination, and differential diagnosis were reviewed with the patient. The patient was placed on a director prison with oximetry and frequent blood pressure monitoring. The patient had IV access obtained and blood work sent for analysis. The patient had an ECG done on arrival. The patient's ECG reveals a sinus rhythm heart rate of 80, no acute ST segment elevation is noted. QRS duration is 98 ms, QTC 405 ms. The patient was initially provided Lasix 60 mg IV, DuoNeb nebs 3, Solu-Medrol 125 mg IV. I explained that the patient will require BiPAP, however the patient refused. She reports that she would rather be placed on a ventilator then placed on BiPAP. An ABG has been ordered. The patients laboratory studies were reviewed and remarkable for a white count of 5.8, hemoglobin 7.6 with a hemoglobin previously at 7.8, platelets 245 with 82.2 neutrophils. Given the patient's degree of shortness of breath, a single unit of packed red blood cells will be administered to get her closer to a hemoglobin of 8. CMP is remarkable for potassium of 5.5, chloride 109, BUN 65, creatinine 2.22, glucose 195, alkaline phosphatase 164, CPK 104, troponin I 0.02 , BNP 504. PT 9.8, PTT 24.9, urinalysis shows 10 ketones, trace occult blood, 1 rbc, occasional wbc clumps, 3 WBCs, moderate bacteria. Radiology studies were reviewed and remarkable for a chest x-ray that shows bibasilar areas of consolidation or atelectasis with suspected bilateral effusions being worse on the left. The patient had an ABG done that showed no evidence of CO2 retention on supplemental oxygen. The patient reportedly felt improved after and was less short of breath. The patient reported an exacerbation of her chronic back pain and hip pain. The patient was given her usual dose of Lortab 5 by mouth 1. The patients results were discussed with the patient, including the plan of care. I explained that further testing and/ or monitoring is indicated based on the patients history, examination, and/ or laboratory findings. Therefore, I recommended admission for additional evaluation. The patient expressed understanding and was agreeable with this plan. The patient was admitted to the hospital in guarded condition and sent to a bed under the care of [facility]. Critical Care Narrative Aggregate critical care time was 35 minutes. Time to perform other separately billable procedures was not included in the critical care time. My time did not include minutes spent treating any other patients simultaneously or on activities that did not directly contribute to the patient's treatment. The services I provided to this patient were to treat and/or prevent clinically significant deterioration that could result in: Respiratory failure, versus hypercarbia I provided critical care services requiring my management, as noted below: Chart data review, documentation time, medication orders and management, vital sign assessments/reviewing monitor data, ordering and reviewing lab tests, ordering and interpreting/reviewing x-rays and diagnostic studies, care of the patient and discussion of the patient with the admitting physicians. Physician Communication Physician Communication The patient's case including history, pertinent physical examination findings, and laboratory studies were discussed with Dr. Hook. It was agreed that the patient would be admitted to the [facility]. Diagnosis Primary Impression: COPD exacerbation Additional Impressions: Acute exacerbation of congestive heart failure Qualified Codes: I50.9 - Heart failure, unspecified Symptomatic anemia Admitting Information Admitting Physician Requests: Gladys Madden MD Oct 27, 2017 02:11
[2017-10-27] MEDS ORDERED: methylPREDNISolone SOD SUCC 125 MG/2 ML VIAL IV PUSH ONE (02:15)
[2017-10-27] MEDS ORDERED: SODIUM CHLORIDE 0.9% FLUSH 10 ML FLUSH IVF PRN (02:15)
[2017-10-27] MEDS ORDERED: FUROSEMIDE 100 MG/10 ML VIAL IVP ONE (02:15)
[2017-10-27] MEDS: RESP: ALBUTEROL 2.5 MG/IPRATROPIUM 0.5 MG NEB (SCH) INH ×4 (02:17→21:40)
[2017-10-27 02:27] LABS: BLOOD GAS BASE EXCESS -5.5 mmol/L (-2-2); BLOOD GAS CARBOXYHEMOGLOBIN 1.3 % (0-4); BLOOD GAS HCO3 19 mmol/L (22-26); BLOOD GAS METHEMOGLOBIN 0.4 % (0-2); BLOOD GAS O2 HGB SATURATION 92 % (90-100); BLOOD GAS PCO2 37 mmHg (38-42); BLOOD GAS PO2 71 mmHG (61-120); BLOOD GAS TOTAL HGB 10.8 G/DL (12.0-16.0); CRITICAL VALUE NO; DRAW SITE RT RADIAL; FIO2 100 %; LITER FLOW 15 L/M; NUMBER OF ARTERIAL PUNCTURES 1; OXYGEN DEVICE NONE REBREATHER
[2017-10-27 02:28] LABS: STAT YES; ULNAR PULSE PRESENT
[2017-10-27 02:38] LABS: AUTOMATED NEUTROPHIL # 4.7 TH/MM3 (1.8-7.7); BASOPHIL % 0.5 % (0.0-2.0); EOSINOPHIL % 0.6 % (0.0-4.0); HEMATOCRIT 23.5 % (35.0-46.0); HEMO FLAGS DIFF FINAL; LYMPH % 11.8 % (9.0-44.0); LYMPHOCYTE # 0.7 TH/MM3 (1.0-4.8); MEAN CELL VOLUME 92.3 FL (80.0-100.0); MEAN CORPUSCULAR HGB CONC 32.4 % (32.0-36.0); MONO % 4.9 % (0.0-8.0); NEUT % 82.2 % (16.0-70.0); PLATELET COUNT 245 TH/MM3 (150-450); RED BLOOD COUNT 2.54 MIL/MM3 (4.00-5.30); WHITE BLOOD COUNT 5.8 TH/MM3 (4.0-11.0)
--- NOTE | 2017-10-27 02:38 | RADRPT ---
EXAM DATE/TIME: 10/27/2017 02:18 [place] COMPARISON: CHEST SINGLE AP, October 02, 2017, 10:22. INDICATIONS : Short of breath. MEDICAL HISTORY : Congestive heart failure. SURGICAL HISTORY : None. ENCOUNTER: Initial ACUITY: 1 day PAIN SCORE: 0/10 LOCATION: Bilateral chest FINDINGS: There is increased density at the lung bases bilaterally being worse on the left. There are suspected bilateral pleural effusions. There is silhouetting the left heart border. CONCLUSION: Bibasilar areas of consolidation or atelectasis with suspected bilateral effusions being worse on the left. Rafa Nair MD on October 27, 2017 at 2:35 Board Certified Radiologist. This report was verified electronically.
[2017-10-27 02:49] LABS: APTT (PATIENT) 24.9 SEC (24.3-30.1); INTERNATIONAL NORMALIZED RATIO 0.9 RATIO; PROTHROMBIN TIME - PATIENT 9.8 SEC (9.8-11.6)
[2017-10-27 02:58] LABS: BACTERIA, URINE MOD /hpf; BLOOD, URINE TRACE (NEG); GLUCOSE,URINE TRACE mg/dL (NEG); HYALINE CAST, URINE 10 /lpf (RARE); KETONE, URINE 10 mg/dL (NEG); NITRITE,URINE NEG (NEG); PH, URINE 5.5 (5.0-8.5); SQUAMOUS EPITHELIAL CELL URINE <1 /hpf (0-5); URINE COLOR LIGHT-YELLOW (YELLW/STRAW)
[2017-10-27 02:59] LABS: COMMENT (UR) CATH-CULTURE IND; CULTURE IF INDICATED CATH CULTURE IND
[2017-10-27] MEDS ORDERED: IPRA0.02 NEB (03:02)
[2017-10-27] MEDS ORDERED: METO2.5T PO (03:02)
[2017-10-27] MEDS ORDERED: [UNRECOGNIZED DRUG - CODE] (03:02)
[2017-10-27] MEDS ORDERED: BUME2TAB PO (03:02)
[2017-10-27] MEDS ORDERED: TYLE325T PO (03:02)
[2017-10-27 03:13] LABS: ANION GAP 14 MEQ/L (5-15); AST (GOT) 31 U/L (15-37); BICARBONATE 21.4 MEQ/L (21.0-32.0); BLOOD UREA NITROGEN 65 MG/DL (7-18); CHLORIDE 109 MEQ/L (98-107); GLOMERULAR FILTRATION RATE 22 ML/MIN (>89); MAGNESIUM 2.3 MG/DL (1.5-2.5); POTASSIUM 5.5 MEQ/L (3.5-5.1); SODIUM (NA) 144 MEQ/L (136-145)
[2017-10-27 03:18] LABS: ALKALINE PHOSPHATASE 164 U/L (45-117); ALT (GPT) 25 U/L (10-53); CREATINE KINASE 104 U/L (26-192); TOTAL BILIRUBIN ADULT 0.3 MG/DL (0.2-1.0)
[2017-10-27 03:30] LABS: CKMB 6.5 NG/ML (0.5-3.6)
[2017-10-27] MEDS ORDERED: ACETAMINOPHEN/HYDROcodone 325 MG/5 MG TAB PO ONE (04:00)
[2017-10-27] MEDS ORDERED: SODIUM CHLOR 0.9% 250 ML INJ 250 ML IV ONE (04:00)
[2017-10-27] MEDS ORDERED: SODIUM CHLORIDE 0.9% FLUSH 10 ML FLUSH IV FLUSH PRN (04:30)
[2017-10-27] MEDS ORDERED: RESP: ALBUTEROL 2.5 MG/3 ML NEB (PRN) INH (04:30)
[2017-10-27] MEDS: HEPARIN SODIUM - SQ 10,000 UNITS/ML VIAL SQ SCH (04:30)
[2017-10-27] MEDS ORDERED: GLUCAGON 1 MG/ML VIAL OTHER PRN (04:45)
[2017-10-27] MEDS ORDERED: DEXTROSE 50% IN WATER 50 ML VIAL(D50) IV PUSH PRN (04:45)
[2017-10-27] MEDS ORDERED: cefTRIAXone INJ 1,000 MG in SODIUM CHLORIDE 0.9% INJ 100 ML IV SCH (05:15)
--- NOTE | 2017-10-27 05:28 | HHI.HP ---
[facility] Primary Care Physician Timo Mobley MD Admission Diagnosis CHF exacerbation, COPD exacerbation, Anemia Diagnoses: Travel History International Travel<30 Days: No Contact w/Intl Traveler <30 Da: No Traveled to Known Affected Are: No History of Present Illness 66-year-old female with a history of diastolic CHF, bilateral pleural effusions with last thoracentesis on 10/04/17, diabetes mellitus, coronary artery disease, chronic kidney disease, COPD, hypertension, GERD, bone marrow suppression and chronic right lower extremity ulcer secondary to a dog bite presents to the emergency department from rehabilitation with increasing shortness of breath over the last 3 days. The patient reports she is chronically short of breath and is normally on 3 L nasal cannula however her shortness of breath has worsened and this evening she felt as if she could not breathe. She was found to be hypoxic on arrival to the emergency department with an oxygen saturation of 81% on room air. The patient was discharged on 10/09/17 where she was treated for respiratory failure secondary to CHF exacerbation, COPD exacerbation and pleural effusion. Chest x-ray significant for bibasilar areas of consolidation or atelectasis with suspected bilateral effusions, left greater than right. The patient was placed on nonrebreather, given Solu-Medrol and IV Lasix and her condition improved. She was anemic with an H&H of 7.6/23.5 , which is near baseline for the patient. She has chronic kidney disease with a creatinine of 2.2 to, which is baseline. BNP 504. ABG on 15 L nonrebreather 7.34/37/92/19. Review of Systems Denies fever or chills Denies blurry vision, otorrhea, rhinorrhea Denies sore throat and cough No chest pain, palpitations, positive shortness of breath No abdominal pain Denies constipation/diarrhea/nausea/vomiting Denies muscle pain/weakness No rashes Past Family Social History Past Medical History Chronic right lower extremity ulcer secondary to dog bite Diabetes mellitus, insulin-dependent CAD COPD Hypertension GERD Bone marrow suppression Diastolic CHF, 06/2017 showed an EF of 55-60% CK D, stage III VT 06/2017 with intervention Past Surgical History Appendectomy Coronary stent placement Hysterectomy Tonsillectomy Left wrist ganglion cyst removal Back surgery with nerve decompression Reported Medications Reported Meds & Active Scripts Active [Albuterol-Ipratropium Neb] 1 AMPULE Nebu 1 Ampule NEB Q4-6H PRN 14 Days Prednisone 5 Mg Tab 5 Mg PO BID 6 Days take 5 mg po bid x 3 days then 5 mg po daily x 3 days then DC Novolog Inj (Insulin Aspart) 1,000 Unit/10 Ml Vial 4 Units SQ TIDAC 30 Days Hydrocodone-Acetamin 5-325 mg (Hydrocodone/Acetaminophen) 5 Mg-325 Mg Tablet 1 Tab PO Q6HR PRN 5 Days i tab prn for pain Nifedipine ER 24 HR (Nifedipine) 60 Mg Tab 60 Mg PO Q12HR 30 Days Novolog Inj (Insulin Aspart) 100 Unit/Ml Inj 1 Units SQ ACHS SLIDING SCALE 30 Days Sliding Scale As Directed.150-199 1 Unit; 200-249 3 units; 250-299 5 Units; 300-349 7 Units; Reported Tylenol (Acetaminophen) 325 Mg Tab 325 Mg PO Q4H PRN Ipratropium Neb (Ipratropium [place]) 0.5 Mg/2.5 Ml Amp 0.5 Mg NEB Q8HR Bumetanide 2 Mg Tab 2 Mg PO BID Orazinc (Zinc Sulfate) 220 Mg (50 Mg Zinc) Cap Metolazone 2.5 Mg Tab 2.5 Mg PO DAILY Levemir Inj (Insulin Detemir) 1,000 unit/ 10 ML Vial 8 Units SQ DAILYAC Do not mix with any other Insulin. Levemir Inj (Insulin Detemir) 1,000 unit/ 10 ML Vial 8 Units SQ HS Do not mix with any other Insulin. Isosorbide Mononitrate ER (Isosorbide Mononitrate) 60 Mg Tab 60 Mg PO DAILY Metoprolol Tartrate 50 Mg Tab 50 Mg PO BID Effient (Prasugrel) 10 Mg Tab 10 Mg PO DAILY Aspirin 81 Mg Chew 81 Mg CHEW DAILY Allergies: Coded Allergies: propoxyphene (Unverified Allergy, Mild, RASH, 10/27/17) Family History Mom with MS. Father with colorectal cancer. Social History Quit smoking for 15 years ago, prior to that she smoked for 40 years. Denies alcohol or illicit drugs Physical Exam Vital Signs Vital Signs Date Time Temp Pulse Resp B/P (MAP) Pulse Ox O2 Delivery O2 Flow Rate FiO2 10/27/17 03:30 82 18 149/67 (94) 99 Non-Rebreather 15.00 100 10/27/17 02:30 50 18 157/64 (95) 96 Non-Rebreather 15.00 100 10/27/17 02:13 22 96 Non-Rebreather 15.00 100 10/27/17 02:12 93 Non-Rebreather 15.00 100 10/27/17 02:10 95 Non-Rebreather 15.00 100 10/27/17 02:08 95 Non-Rebreather 15.00 100 10/27/17 01:53 80 22 149/64 (92) 93 Physical Exam GENERAL: female sitting up in bed in moderate distress SKIN: Right lower extremity chronic wound. No surrounding erythema or signs of infection. HEAD: Atraumatic. Normocephalic. No temporal or scalp tenderness. EYES: Pupils equal round and reactive. Extraocular motions intact. No scleral icterus. No injection or drainage. ENT: Nose without bleeding, purulent drainage or septal hematoma. Throat without erythema, tonsillar hypertrophy or exudate. Uvula midline. Airway patent. NECK: Trachea midline. No JVD or lymphadenopathy. Supple, nontender, no meningeal signs. CARDIOVASCULAR: Regular rate and rhythm without murmurs, gallops, or rubs. RESPIRATORY: Decreased breath sounds bilaterally, left greater than right. Bilateral expiratory wheezes. GASTROINTESTINAL: Abdomen soft, non-tender, nondistended. No hepato-splenomegaly , or palpable masses. No guarding. MUSCULOSKELETAL: Extremities without clubbing, cyanosis, or edema. 2+ pitting edema to the knees. NEUROLOGICAL: Awake and alert. Cranial nerves II through XII intact. Motor and sensory grossly within normal limits. Normal speech. Laboratory Laboratory Tests Test 10/27/17 02:10 10/27/17 02:17 10/27/17 02:25 White Blood Count 5.8 Red Blood Count 2.54 Hemoglobin 7.6 Hematocrit 23.5 Mean Corpuscular Volume 92.3 Mean Corpuscular Hemoglobin 30.0 Mean Corpuscular Hemoglobin Concent 32.4 Red Cell Distribution Width 16.0 Platelet Count 245 Mean Platelet Volume 8.6 Neutrophils (%) (Auto) 82.2 Lymphocytes (%) (Auto) 11.8 Monocytes (%) (Auto) 4.9 Eosinophils (%) (Auto) 0.6 Basophils (%) (Auto) 0.5 Neutrophils # (Auto) 4.7 Lymphocytes # (Auto) 0.7 Monocytes # (Auto) 0.3 Eosinophils # (Auto) 0.0 Basophils # (Auto) 0.0 CBC Comment DIFF FINAL Differential Comment Prothrombin Time 9.8 Prothromb Time International Ratio 0.9 Activated Partial Thromboplast Time 24.9 Blood Urea Nitrogen 65 Creatinine 2.22 Random Glucose 195 Total Protein 6.0 Albumin 2.5 Calcium Level 9.2 Magnesium Level 2.3 Alkaline Phosphatase 164 Aspartate Amino Transf (AST/SGOT) 31 Alanine Aminotransferase (ALT/SGPT) 25 Total Bilirubin 0.3 Sodium Level 144 Potassium Level 5.5 Chloride Level 109 Carbon Dioxide Level 21.4 Anion Gap 14 Estimat Glomerular Filtration Rate 22 Total Creatine Kinase 104 Creatine Kinase MB 6.5 Troponin I 0.02 B-Type Natriuretic Peptide 504 Blood Gas Puncture Site RT RADIAL Blood Gas Patient Temperature 37.0 Blood Gas HCO3 19 Blood Gas Base Excess -5.5 Blood Gas Oxygen Saturation 92 Arterial Blood pH 7.34 Arterial Blood Partial Pressure CO2 37 Arterial Blood Partial Pressure O2 71 Arterial Blood Oxygen Content 14.0 Arterial Blood Carboxyhemoglobin 1.3 Arterial Blood Methemoglobin 0.4 Blood Gas Hemoglobin 10.8 Oxygen Delivery Device NONE REBREATHER Blood Gas Liter Flow 15 Blood Gas Inspired Oxygen 100 Urine Color LIGHT-YELLOW Urine Turbidity HAZY Urine pH 5.5 Urine Specific [place] 1.012 Urine Protein 100 Urine Glucose (UA) TRACE Urine Ketones 10 Urine Occult Blood TRACE Urine Nitrite NEG Urine Bilirubin NEG Urine Urobilinogen LESS THAN 2.0 Urine Leukocyte Esterase NEG Urine RBC 1 Urine WBC 3 Urine WBC Clumps OCC Urine Squamous Epithelial Cells <1 Urine Amorphous Sediment FEW Urine Bacteria MOD Urine Hyaline Casts 10 Microscopic Urinalysis Comment CATH-CULTURE IND Date/Time Source Procedure Growth Status 10/27/17 02:25 Urine Catheterized Urine Urine Culture Pending Worksheet Result Diagram: 10/27/1720910/27/17209 Caprini VTE Risk Assessment Caprini VTE Risk Assessment: Mod/High Risk (score >= 2) Caprini Risk Assessment Model Point Value = 1 Point Value = 2 Point Value = 3 Point Value = 5 Age 41-60 Minor surgery BMI > 25 kg/m2 Swollen legs Varicose veins or History of unexplained or recurrent spontaneous Oral contraceptives or hormone replacement Sepsis (< 1 month) Serious lung disease, including pneumonia (< 1 month) Abnormal pulmonary function Acute myocardial infarction Congestive heart failure (< 1 month) History of inflammatory bowel disease Medical patient at bed rest Age 61-74 Arthroscopic surgery Major open surgery (> 45 min) Laparoscopic surgery (> 45 min) Malignancy Confined to bed (> 72 hours) Immobilizing plaster cast Central venous access Age >= 75 History of VTE Family history of VTE Factor V Leiden Prothrombin [id number] Lupus anticoagulant Anticardiolipin antibodies Elevated serum homocysteine Heparin-induced thrombocytopenia Other congenital or acquired thrombophilia Stroke (< 1 month) Elective arthroplasty Hip, pelvis, or leg fracture Acute spinal cord injury (< 1 month) Prophylaxis Regimen Total Risk Factor Score Risk Level Prophylaxis Regimen 0-1 Low Early ambulation 2 Moderate Order ONE of the following: *Sequential Compression Device (SCD) *Heparin 5000 units SQ BID 3-4 Higher Order ONE of the following medications: *Heparin 5000 units SQ TID *Enoxaparin/Lovenox 40 mg SQ daily (WT < 150 kg, CrCl > 30 mL/min) *Enoxaparin/Lovenox 30 mg SQ daily (WT < 150 kg, CrCl > 10-29 mL/min) *Enoxaparin/Lovenox 30 mg SQ BID (WT < 150 kg, CrCl > 30 mL/min) AND/OR *Sequential Compression Device (SCD) 5 or more Highest Order ONE of the following medications: *Heparin 5000 units SQ TID (Preferred with Epidurals) *Enoxaparin/Lovenox 40 mg SQ daily (WT < 150 kg, CrCl > 30 mL/min) *Enoxaparin/Lovenox 30 mg SQ daily (WT < 150 kg, CrCl > 10-29 mL/min) *Enoxaparin/Lovenox 30 mg SQ BID (WT < 150 kg, CrCl > 30 mL/min) AND *Sequential Compression Device (SCD) Assessment and Plan Assessment and Plan 66-year-old female with a history of diastolic CHF, bilateral pleural effusions with last thoracentesis on 10/04/17, diabetes mellitus, coronary artery disease, chronic kidney disease, COPD, hypertension, GERD, bone marrow suppression and chronic right lower extremity ulcer secondary to a dog bite presents to the emergency department with acutely worsening shortness of breath. 1. Respiratory failure/COPD exacerbation/CHF exacerbation/bilateral pleural effusions Chest x-ray significant for bibasilar areas of consolidation or atelectasis with suspected bilateral effusions left greater than right, images reviewed by me Patient severely hypoxic on room air on arrival BNP 504 Chronically uses 3 L nasal cannula Condition improved with nonrebreather, IV steroids and IV Lasix Continue IV Lasix, IV steroids Rule out PE, VQ scan pending as patient with GFR of 22 Wean O2 as tolerated 2. Anemia H&H 7.6/23.5, near baseline Patient receiving 1 unit packed red blood cells in the ED Monitor CBC 3. UTI Urine consistent with UTI During last hospitalization patient had Proteus in her urine, sensitive to Rocephin Rocephin Urine culture pending 4. Hyperkalemia Potassium 5.5 No EKG changes Follow-up BMP 5. Chronic right lower extremity ulcer secondary to dog bite Area with no signs of infection Consult wound care 6. Insulin-dependent diabetes mellitus Continue home Levemir SSI 7. CKD Creatinine at baseline, 2.22 7. Hypertension Continue all medications FEN Heart healthy diet Fluid restriction Electrolytes: As above Holding pharmacologic anticoagulation for possible intervention Case discussed with ER physician at length Physician Certification 2 Midnight Certification Type: Admission for Inpatient Services Order for Inpatient Services The services are ordered in accordance with Medicare regulations or non- Medicare payer requirements, as applicable. In the case of services not specified as inpatient-only, they are appropriately provided as inpatient services in accordance with the 2-midnight benchmark. Estimated LOS (days): 2 2 days is the estimated time the patient will need to remain in the hospital, assuming treatment plan goals are met and no additional complications. Post-Hospital Plan: Not yet determined Venita Hook MD Oct 27, 2017 05:28
[2017-10-27] MEDS: ASPIRIN 81 MG CHEW TAB CHEW SCH (08:19)
[2017-10-27] MEDS: METOPROLOL TARTRATE 50 MG TAB PO SCH ×2 (08:19→21:25)
[2017-10-27] MEDS: methylPREDNISolone SOD SUCC 40 MG/1 ML VIAL IV PUSH SCH ×3 (08:20→21:25)
[2017-10-27] MEDS: SODIUM CHLORIDE 0.9% FLUSH 10 ML FLUSH IV FLUSH SCH ×2 (08:20→21:25)
[2017-10-27] MEDS: FUROSEMIDE 40 MG/4 ML VIAL IV PUSH SCH ×2 (08:20→16:25)
[2017-10-27] MEDS: INSULIN ASPART SUPPLEMENTAL SCALE SQ SCH ×4 (08:25→21:25)
[2017-10-27] MEDS: NIFEdipine 60 MG SUSTAINED RELEASE TAB PO SCH ×2 (08:25→21:25)
--- NOTE | 2017-10-27 08:27 | HHI.PR ---
Addendum to Inpatient Note Addendum Reason: Additional Documentation Additional Information Pt feeling a little better, states she is able to breath better, still requiring a non rebreather. Pt tells me that her canvass manager is Dr. Toro, saw him yesterday. Her air tester is Dr. Reddy, and her licensed sales producer is Dr. Blankenshpi. Denies any Chest pains, nausea or vomiting. lungs: breath sounds very decreased, some faint crackles. CV: rrr moves extremities Plan continue IV lasix, breathing treatments. switch abx to cefepime and azithromycin as pt was recently in rehab. f/u urine cx. check chest u/s and if possible will drain pleural effusion. pulm consult also placed. Pt known to Dr. Blankenship. Pt tells me that she is also known to Dr. Toro and Dr. Reddy. Will consult Dr. Reddy as pt is known to him. Heart healthy/ fluid restrictions. wean steroids as tolerated. continue supplemental oxygen. Veronica Guillory MD Oct 27, 2017 08:27
[2017-10-27] MEDS ORDERED: BUMETANIDE 1 MG TAB PO SCH (09:00)
[2017-10-27] MEDS: PRASUGREL 10 MG TAB PO SCH ×2 (09:00→15:46)
[2017-10-27] MEDS ORDERED: methylPREDNISolone SOD SUCC 125 MG/2 ML VIAL IV PUSH SCH (09:00)
--- NOTE | 2017-10-27 09:26 | EKG ---
Date Performed: 10/27/2017 Time Performed: 01:55:49 PTAGE: 66 years EKG: Baseline artifact present Sinus rhythm POSSIBLE ANTERIOR MYOCARDIAL INFARCTION ABNORMAL ECG INTERPRETATION BASED ON A DEFAULT AGE OF 41 YEA RS Compared to prior electrocardiogram, Premature ventricular contractions are no longer present. NO PREVIOUS TRACING DOCTOR: Jae Hinton Interpretating Date/Time 10/27/2017 09:26:21
--- NOTE | 2017-10-27 11:25 | RADRPT ---
EXAM DATE/TIME: 10/27/2017 09:02 [place] COMPARISON: CHEST SINGLE AP, October 27, 2017, 2:18. INDICATIONS : Dyspnea with congestive heart faliure. Hypoxia. DOSE: 1.2 mCi Tc99m DTPA via Mask. 8.5 mCi Tc99m MAA MEDICAL HISTORY : Myocardial infarction. Chronic obstructive pulmonary disease. Gastroesophageal reflux disease. Hypert ension, diabetes, coronary artery disease, atrial fibrillation, and chronic kidney disease. SURGICAL HISTORY : Hysterectomy. Appendectomy. Back surgery.Thoracentesis on 10/04/17 ENCOUNTER: Initial ACUITY: 1 day PAIN SCALE: 0/10 LOCATION: chest TECHNIQUE: Following five minutes of tidal breathing of DTPA aerosol, planar images of the lungs were performed in eight projections. The patient was then injected with MAA, and eight-view perfusion scan was perf ormed. FINDINGS: Chest radiograph shows bilateral effusions and lung base consolidation. Ventilation and perfusion abn ormalities are present, mainly on the left correlating with the chest radiographic findings. Elsewher e no particularly suspicious segmental or subsegmental abnormalities and no mismatches to specificall y elevate concern for pulmonary embolism. CONCLUSION: Strictly indeterminate scan. Rafa Gates MD on October 27, 2017 at 11:19 Board Certified Radiologist. This report was verified electronically.
[2017-10-27] MEDS: CEFEPIME INJ 2,000 MG in SODIUM CHLORIDE 0.9% INJ 100 ML IV SCH (12:16)
[2017-10-27] MEDS: AZITHROMYCIN INJ 500 MG in SODIUM CHLOR 0.9% 250 ML INJ 250 ML IV SCH (13:02)
--- NOTE | 2017-10-27 16:15 | PD.CONS ---
HPI Service Cardiology Consult Requested By Dr Guillory Reason for Consult CHF exacerbation Primary Care Physician Timo Mobley MD History of Present Illness The patient is a 66 year old female known to Dr Reddy with a cardiac history of ASHD s/p WENDI 06/2017 on ASA and Effient, diastolic CHF, HTN, DM and HLD. Other notable history CKD, chronic anemia and COPD. She states that she has required iron infusions in the past. The patient presented to the hospital for SOB. Work up is multifactorial for SOB including left pleural effusion, Hbg 7.6 , CHF exacerbation. ABG reveals metabolic acidosis with respiratory compromise. The patient complains of SOB on exam and BLE edema. She denies CP or heart palpitations. (Lupe Pinedo) Review of Systems Consitutional: COMPLAINS OF: Fatigue, DENIES: Fever, Chills, Weight gain, Weight loss Eyes: DENIES: Amaurosis Fugax, Change in vision HEENT: DENIES: Lightheadedness, Change in hearing Respiratory: COMPLAINS OF: Shortness of breath, DENIES: See HPI, Cough, Snoring , Wheezing, Sputum production Cardiovascular: DENIES: See HPI, Chest pain, Palpitations, Syncope, Tachycardia Gastrointestinal: DENIES: Nausea, Vomiting, Change in bowel habits, Reflux, Bloody stools, Melena Genitourinary: DENIES: Urinary incontinence, Difficulty voiding Integumentary: DENIES: Rash Neurologic: DENIES: Tingling or numbness, Memory problems, Poor Balance, Stroke symptoms Musculoskeletal: DENIES: Joint pain, Muscle pain, Limited range of motion, Back pain Psychiatric: DENIES: Anxiety, Depression, Sleep disturbances Hematologic: COMPLAINS OF: Bruising tendencies, DENIES: Bleeding tendencies Endocrine: DENIES: Weight gain, Weight loss, Thyroid disease (Lupe Pinedo ) Past Family Social History Allergies: Coded Allergies: propoxyphene (Unverified Allergy, Mild, RASH, 10/27/17) Past Medical History See HPI Past Surgical History 06/2017 cardiac cath WENDI first diagonal 08/2015 cardiac WENDI LAD and RCA Colonoscopy 2015 Reported Medications Reported Meds & Active Scripts Active [Albuterol-Ipratropium Neb] 1 AMPULE Nebu 1 Ampule NEB Q4-6H PRN 14 Days Prednisone 5 Mg Tab 5 Mg PO BID 6 Days take 5 mg po bid x 3 days then 5 mg po daily x 3 days then DC Novolog Inj (Insulin Aspart) 1,000 Unit/10 Ml Vial 4 Units SQ TIDAC 30 Days Hydrocodone-Acetamin 5-325 mg (Hydrocodone/Acetaminophen) 5 Mg-325 Mg Tablet 1 Tab PO Q6HR PRN 5 Days i tab prn for pain Nifedipine ER 24 HR (Nifedipine) 60 Mg Tab 60 Mg PO Q12HR 30 Days Novolog Inj (Insulin Aspart) 100 Unit/Ml Inj 1 Units SQ ACHS SLIDING SCALE 30 Days Sliding Scale As Directed.150-199 1 Unit; 200-249 3 units; 250-299 5 Units; 300-349 7 Units; Reported Tylenol (Acetaminophen) 325 Mg Tab 325 Mg PO Q4H PRN Ipratropium Neb (Ipratropium [place]) 0.5 Mg/2.5 Ml Amp 0.5 Mg NEB Q8HR Bumetanide 2 Mg Tab 2 Mg PO BID Orazinc (Zinc Sulfate) 220 Mg (50 Mg Zinc) Cap Metolazone 2.5 Mg Tab 2.5 Mg PO DAILY Levemir Inj (Insulin Detemir) 1,000 unit/ 10 ML Vial 8 Units SQ DAILYAC Do not mix with any other Insulin. Levemir Inj (Insulin Detemir) 1,000 unit/ 10 ML Vial 8 Units SQ HS Do not mix with any other Insulin. Isosorbide Mononitrate ER (Isosorbide Mononitrate) 60 Mg Tab 60 Mg PO DAILY Metoprolol Tartrate 50 Mg Tab 50 Mg PO BID Effient (Prasugrel) 10 Mg Tab 10 Mg PO DAILY Aspirin 81 Mg Chew 81 Mg CHEW DAILY Active Ordered Medications Current Medications Medications (Trade) Dose Ordered Sig/Marie Route Start Time Stop Time Status Last Admin Sodium Chloride 250 ml @ 15 mls/hr ONCE ONCE IV 10/27/17 04:00 10/27/17 20:39 (Aspirin Chew) 81 mg DAILY CHEW 10/27/17 09:00 10/27/17 08:19 (Bumetanide) 2 mg BID PO 10/27/17 09:00 Future Hold (Imdur) 60 mg DAILY@0700 PO 10/27/17 07:00 (Lopressor) 50 mg BID PO 10/27/17 09:00 10/27/17 08:19 (Procardia Xl) 60 mg Q12HR PO 10/27/17 09:00 (Effient) 10 mg DAILY PO 10/27/17 09:00 10/27/17 15:46 (NS Flush) 2 ml BID IV FLUSH 10/27/17 09:00 10/27/17 08:20 (NS Flush) 2 ml UNSCH PRN IV FLUSH 10/27/17 04:30 (Duoneb Neb) 1 ampule Q6HR NEB INH 10/27/17 10:00 (Albuterol Neb) 2.5 mg Q2HR NEB PRN INH 10/27/17 04:30 (Heparin Inj) 5,000 units Q8H SQ 10/27/17 04:30 Future Hold (SoluMEDROL INJ) 40 mg Q6H IV PUSH 10/27/17 09:00 10/27/17 15:45 (D50w (Vial) Inj) 50 ml UNSCH PRN IV PUSH 10/27/17 04:45 (Glucagon Inj) 1 mg UNSCH PRN OTHER 10/27/17 04:45 (NovoLOG SUPPLEMENTAL SCALE) 1 ACHS SLIDING SCALE SQ 10/27/17 08:00 10/27/17 13:09 (Lasix Inj) 40 mg BID@09,18 IV PUSH 10/27/17 09:00 10/27/17 08:20 (Levemir Inj) 8 units HS SQ 10/27/17 21:00 Cefepime HCl 2000 mg/Sodium Chloride 100 ml @ 200 mls/hr Q24H IV 10/27/17 12:00 10/27/17 12:16 Azithromycin 500 mg/Sodium Chloride 250 ml @ 250 mls/hr Q24H IV 10/27/17 11:00 10/27/17 13:02 Family History negative for heart disease Social History former smoker, no ETOH (Lupe Pinedo) Physical Exam Vital Signs Vital Signs Date Time Temp Pulse Resp B/P (MAP) Pulse Ox O2 Delivery O2 Flow Rate FiO2 10/27/17 15:47 98.6 71 22 150/65 (93) 93 10/27/17 11:39 7 10/27/17 11:38 98.8 72 24 136/66 (89) 96 10/27/17 07:55 90 Non-Rebreather 15.00 10/27/17 07:00 75 10/27/17 07:00 98.3 74 25 106/56 (73) 97 10/27/17 06:35 75 10/27/17 06:25 96.8 76 22 117/47 (70) 93 10/27/17 06:20 10/27/17 05:00 77 18 127/65 (85) 96 Non-Rebreather 15.00 100 10/27/17 03:30 82 18 149/67 (94) 99 Non-Rebreather 15.00 100 10/27/17 02:30 50 18 157/64 (95) 96 Non-Rebreather 15.00 100 10/27/17 02:13 22 96 Non-Rebreather 15.00 100 10/27/17 02:12 93 Non-Rebreather 15.00 100 10/27/17 02:10 95 Non-Rebreather 15.00 100 10/27/17 02:08 95 Non-Rebreather 15.00 100 10/27/17 01:53 80 22 149/64 (92) 93 Physical Exam GENERAL: Elderly famale in [facility] SKIN: Warm and dry. HEAD: Atraumatic. Normocephalic. EYES: Pupils equal and round. No scleral icterus. ENT: No nasal bleeding or discharge. NECK: Trachea midline. No JVD. CARDIOVASCULAR: Regular rate and rhythm. Systolic murmur RESPIRATORY: NRB mask, mild use accessory muscles, diminished left leg GASTROINTESTINAL: Abdomen soft, non-tender, nondistended. MUSCULOSKELETAL: Scattered bruising, 2+ BLE edema NEUROLOGICAL: Awake and alert. PSYCHIATRIC: Appropriate mood and affect; insight and judgment normal. Laboratory Laboratory Tests Test 10/27/17 02:10 10/27/17 02:17 10/27/17 02:25 White Blood Count 5.8 Red Blood Count 2.54 Hemoglobin 7.6 Hematocrit 23.5 Mean Corpuscular Volume 92.3 Mean Corpuscular Hemoglobin 30.0 Mean Corpuscular Hemoglobin Concent 32.4 Red Cell Distribution Width 16.0 Platelet Count 245 Mean Platelet Volume 8.6 Neutrophils (%) (Auto) 82.2 Lymphocytes (%) (Auto) 11.8 Monocytes (%) (Auto) 4.9 Eosinophils (%) (Auto) 0.6 Basophils (%) (Auto) 0.5 Neutrophils # (Auto) 4.7 Lymphocytes # (Auto) 0.7 Monocytes # (Auto) 0.3 Eosinophils # (Auto) 0.0 Basophils # (Auto) 0.0 CBC Comment DIFF FINAL Differential Comment Prothrombin Time 9.8 Prothromb Time International Ratio 0.9 Activated Partial Thromboplast Time 24.9 Blood Urea Nitrogen 65 Creatinine 2.22 Random Glucose 195 Total Protein 6.0 Albumin 2.5 Calcium Level 9.2 Magnesium Level 2.3 Alkaline Phosphatase 164 Aspartate Amino Transf (AST/SGOT) 31 Alanine Aminotransferase (ALT/SGPT) 25 Total Bilirubin 0.3 Sodium Level 144 Potassium Level 5.5 Chloride Level 109 Carbon Dioxide Level 21.4 Anion Gap 14 Estimat Glomerular Filtration Rate 22 Total Creatine Kinase 104 Creatine Kinase MB 6.5 Troponin I 0.02 B-Type Natriuretic Peptide 504 Blood Gas Puncture Site RT RADIAL Blood Gas Patient Temperature 37.0 Blood Gas HCO3 19 Blood Gas Base Excess -5.5 Blood Gas Oxygen Saturation 92 Arterial Blood pH 7.34 Arterial Blood Partial Pressure CO2 37 Arterial Blood Partial Pressure O2 71 Arterial Blood Oxygen Content 14.0 Arterial Blood Carboxyhemoglobin 1.3 Arterial Blood Methemoglobin 0.4 Blood Gas Hemoglobin 10.8 Oxygen Delivery Device NONE REBREATHER Blood Gas Liter Flow 15 Blood Gas Inspired Oxygen 100 Urine Color LIGHT-YELLOW Urine Turbidity HAZY Urine pH 5.5 Urine Specific [place] 1.012 Urine Protein 100 Urine Glucose (UA) TRACE Urine Ketones 10 Urine Occult Blood TRACE Urine Nitrite NEG Urine Bilirubin NEG Urine Urobilinogen LESS THAN 2.0 Urine Leukocyte Esterase NEG Urine RBC 1 Urine WBC 3 Urine WBC Clumps OCC Urine Squamous Epithelial Cells <1 Urine Amorphous Sediment FEW Urine Bacteria MOD Urine Hyaline Casts 10 Microscopic Urinalysis Comment CATH-CULTURE IND Date/Time Source Procedure Growth Status 10/27/17 02:25 Urine Catheterized Urine Urine Culture Pending Worksheet (Lupe Pinedo) Result Diagram: 10/27/1720910/27/17209 Imaging Last 72 hours Impressions Chest X-Ray 10/27/17 0203 Signed Impressions: Service Date/Time: Friday, October 27, 2017 02:18 - CONCLUSION: Bibasilar areas of consolidation or atelectasis with suspected bilateral effusions being worse on the left. Rafa Nair MD Lung Scan-V Nuclear Medicine 10/27/17 0000 Signed Impressions: Service Date/Time: Friday, October 27, 2017 09:02 - CONCLUSION: Strictly indeterminate scan. Rafa Gates MD (Lupe Pinedo) Assessment and Plan Assessment and Plan Hypoxic respiratory insufficiency and SOB due to diastolic CHF exacerbation, pleural effusion, amemia, COPD and metabolic acidosis ASHD s/p cardiac cath 06/2017 with WENDI to first diagonal CKD Hyperkalemia PLAN: We will hold of thoracentesis for now. We are unable to hold Effient for 5 days due to recent WENDI placement. We will consult Dr Toro for assistance in aggressive diuresis. Transfuse 1 unit PRBCs with diuresis and close monitoring. We will follow up closely The patient was seen and evaluated by Dr Colon who completed face to face encounter and physical exam and participated in evaluation and management. (Lupe Pinedo) Assessment and Plan The exam, history, and the medical decision-making described in the above note were completed with the assistance of the mid-level provider. I reviewed and agree with the findings presented. I attest that I had a [id number] encounter with the patient on the same day, and personally performed and documented my assessment and findings in the medical record. Had a recent stent unable to hold antiplatelets. (Michael Colon MD) Lupe Pinedo Oct 27, 2017 16:15 Michael Colon MD Oct 28, 2017 13:52
--- NOTE | 2017-10-27 18:23 | PD.WCN.NOT ---
Wound Consult Description: Received consult from Doctor Hook for wound management of RLE Communicated with: HARSH SANCHEZ and Doctor Guillory for orders Recommendation: Please cleanse wounds to R heel and R lower leg with normal saline and pat dry before applying Optifoam gentle 6 x 6 in dressing available by [employer] only. Change dressing every 3 days or PRN if saturated or dislodged. Please order heel raiser boots for patient and apply to offload pressure from heels. Additional Information: Patient seen on [facility] for evaluation of RLE wound management around 1530. Patient previously followed by wound care for unstageable pressure to R heel on previous admission. Also saw patient previously for wounds to R del cid on previous admission.Removed gauze and rolled gauze dressing in place to R lower leg to reveal two wounds that present with 100% pale pink tissue. Wounds have minimal serous drainage that are without odor.Periwound presents with mild blanchable erythema and is without induration or heat.Wound to R proximal del cid measures 2.1cm x 3cm x ~0.1cm. Wound to R distal del cid measures 4.9 cm x 3.9cm. Cleansed wounds with normal saline and pat dry. Applied ABD pad over wounds to RLE and secured with rolled gauze and tape that was available on hand. Removed bordered gauze in place to R heel to reveal wound with 100% red non granulation tissue. Wound measures ~1cm x~0.7cm x ~0.1cm. Wound is shallow, full thickness, and pressure related indicating stage 3 pressure injury. Periwound is unremarkable. Drainage from wound is minimal and,sero-sanguinous, without odor. Applied optifoam gentle border 4x4 inch dressing to R heel wound that was on hand.Ordered correct supplies. RN will apply per wound care orders. Doctor Guillory is in agreement with wound care recommendations and has written orders. Evelyn Sanchez [facility] Oct 27, 2017 18:23
--- NOTE | 2017-10-27 20:48 | MB ---
cc: OSORIO ESPARZA DATE OF CONSULTATION 10/27/[address] Venita Hook REASON FOR CONSULTATION Shortness of breath and pleural effusion. HISTORY OF PRESENT ILLNESS Ms. Maynard is a pleasant 66-year female who lives in a long-term. She has history of atherosclerotic heart disease. She is status post recent stent placement. She is on aspirin and Effient. She also has history of COPD, congestive heart failure, hypertension. She has dog bite on the right leg for a long period of time. Wound is healing. She has increasing shortness of breath, increasing swelling in her legs. She was brought from the long-term. She had a workup done. LABORATORY DATA Her chest x-ray shows basilar atelectasis and pleural effusion. Her CBC showed WBC count 5.8, hemoglobin 7.6, hematocrit 23.5, MCV 92, platelet count 245, sodium 144, potassium 5.5, chloride 109, CO2 21, BUN 65, creatinine 2.2. Blood gas pH 7.34, pCO2 37, pO2 71 on non-rebreather mask. PAST MEDICAL HISTORY The past medical history is significant for history of coronary disease status post drug-eluting stent placed. History of congestive heart failure, COPD, coronary artery disease, chronic kidney disease, history of bone marrow aspiration, hypertension. C. Diff colitis, history of ganglion surgery, back surgery. MEDICATIONS She is currently takin. Insulin 8 units. 2. Cefepime 2 grams q. 24 hours. 3. Zithromax 500 milligrams a day. 4. Albuterol/Atrovent nebulizer treatment. 5. Metoprolol 50 milligrams twice a day. 6. Nifedipine 60 milligrams q. 12-hour. 7. Effient 10 milligrams a day. 8. Solu-Medrol 40 milligrams q. 6-hours. 9. Lasix 40 milligrams twice a day. 10. Imdur 60 milligrams a day. ALLERGIES SHE IS ALLERGIC TO PROPOXYPHENE. SOCIAL HISTORY She has history of smoking in the past which she quit a long time ago. She worked for [employer] She is basically bed-bound, has increased swelling but no seizure, stroke or epilepsy. No DVT or pulmonary embolus. PHYSICAL EXAMINATION GENERAL: Reveals an elderly female, mild to moderate short of breath. She is on non-rebreather mask. She takes her mask off and desaturates. VITAL SIGNS: Blood pressure is 150/65, heart rate 71, respirations 22, oxygen 94%. HEENT: Examination pupils are equal and reactive to light. Oral mucosa, nasal mucosa normal. NECK: JVP not raised. CHEST: She has decreased breath sounds at the bases with basilar rales. CARDIOVASCULAR: S1-S2 normal. ABDOMEN: Soft, nondistended. Bowel sounds are present. EXTREMITIES: 2+ pedal edema. IMPRESSION 1. Shortness of breath with congestive heart failure. 2. Bilateral pleural effusion, small to moderate. 3. Atelectasis. 4. COPD. 5. Coronary artery disease with history of drug-eluting stent placement. 6. History of dog bite. PLAN I discussed with the patient. Cardiology has seen the patient and she cannot come off from Effient and cannot get the thoracentesis at this point. We will monitor her closely. She is being diuresed. Supplement her oxygen. She is not able to maintain saturation, will put her on high-flow oxygen. She is refusing to use BiPap machine. Monitor her electrolytes. Further treatment depends on the course in the hospital. Thank you Dr. Hook for this consultation. MD TRUPTI Fishman/JEANE /7:18 PM /8:19 PM
[2017-10-27] MEDS: INSULIN DETEMIR 100 UNITS/ML VIAL SQ SCH (21:26)
[2017-10-28] VITALS (28 sets, daily range): BP systolic 132–143; BP diastolic 57–75; PULSE 63–90; RESP 16–20; TEMP 97.6–97.9; O2SAT 91–96
[2017-10-28] MEDS: RESP: ALBUTEROL 2.5 MG/IPRATROPIUM 0.5 MG NEB (SCH) INH ×4 (03:21→21:03)
[2017-10-28] MEDS: methylPREDNISolone SOD SUCC 40 MG/1 ML VIAL IV PUSH SCH ×4 (03:32→21:29)
[2017-10-28] MEDS ORDERED: traMADol HCL 50 MG TAB PO ONE (04:00)
[2017-10-28] MEDS: ISOSORBIDE MONONITRATE 60 MG TAB PO SCH ×2 (07:00→07:29)
--- NOTE | 2017-10-28 08:12 | MB ---
cc: MIREYA HOROWITZ MD DATE OF CONSULTATION 10/27/2017 REASON FOR CONSULTATION Chronic kidney disease with elevated creatinine and anasarca. HISTORY OF PRESENT ILLNESS This is a 66-year-old female known to me from before with past medical history of ischemic heart disease, chronic obstructive pulmonary disease, hypertension, chronic kidney disease with diastolic dysfunction, congestive heart failure, history of edema in the legs came to the hospital with complaint of worsening shortness of breath and increased swelling of the legs. I was called to see the patient because of elevated BUN and creatinine. The patient is known to me from her last admission and also she was seen by me in the office yesterday. The patient was discharged from the hospital on October 09 and she went to the nursing facility and she was still there and started having more and more trouble breathing. The patient was seen by me yesterday and I increased her diuretics. She has increased swelling of the legs and there is an ulcer in the right lower leg which was started after she was bitten by her dog. Yesterday evening she started having more and more trouble breathing. She has been on oxygen all the time and it was found that her oxygen saturation was down and she was transferred to the hospital. She denies any cough. No sputum. No chest pain. No nausea or vomiting. PAST MEDICAL HISTORY 1. Hypertension. 2. Diabetes mellitus. 3. Chronic obstructive pulmonary disease. 4. Ischemic heart disease. 5. Diastolic dysfunction. 6. Chronic kidney disease. 7. Chronic edema of the legs. PAST SURGICAL HISTORY 1. Cardiac catheterization multiple times with stent placement. 2. Appendectomy. 3. section. 4. Hysterectomy. 5. Tonsillectomy. 6. Back surgery. REVIEW OF SYSTEMS The patient has generalized weakness, feeling tired. Has increased generalized weakness. There is no chest pain. No palpitations. Denies any cough or sputum. Does not have any dysuria or hematuria, difficulty in passing urine. Noticed increased swelling of the legs and in the right lower leg she has which has started now after she bitten by the dog and there is a dressing on it. SOCIAL HISTORY The patient currently lives in a nursing facility. She stopped smoking 15 years ago. There is no history of heavy alcoholism. FAMILY HISTORY Noncontributory. ALLERGIES SHE IS ALLERGIC TO PROPOXYPHENE. MEDICATIONS Currently she is on following medications: 1. Lopressor 50 mg b.i.d. 2. Lasix 40 mg IV b.i.d. 3. Aspirin 81 mg daily. 4. Effient 10 mg once a day. 5. Imdur 60 mg daily. 6. Levemir injection 8 units q.h.s. 7. DuoNeb nebulizer. 8. Procardia XL 60 mg q.12h. 9. Cefepime 2 grams IV q.24h. 10. q.24h. 11. Methyl prednisolone 40 milligrams q.6h. 12. Insulin aspart sliding scale. 13. DuoNeb nebulizers. PHYSICAL EXAMINATION GENERAL: The patient is awake, alert. She is not in acute distress. VITAL SIGNS: Her last blood pressure is 150/65, temperature 98.6, oxygen saturation on 9 liters simple mask is 94%. HEENT: Pupils are mid constricted. Nonicteric sclerae. Conjunctivae pale. NECK: Supple. JVD is not elevated. LUNGS: The patient has bilateral decreased air entry with basilar rales and scattered wheezing. HEART: S1-S2, regular rhythm. ABDOMEN: Distended, soft lax. There is no tenderness. EXTREMITIES: She has bilateral 3+ edema. There is a dressing on the right lower leg. LABORATORY DATA Investigations, WBC is 5.8 with hemoglobin of 7.6 with platelet count 245. Neutrophils 82.2%. Sodium 144, potassium 5.5, chloride 109, bicarb 21.4, BUN 65, creatinine 2.2, glucose 195. Calcium is 9.2. AST and ALT normal. Alkaline phosphatase 164, creatinine kinase is 104, MB is 6.5, total protein 6.0. Albumin of 2.5. The patient previously has creatinine of 2.3, this was in 10/14 and when she was discharged her creatinine was the same 2.3. Urinalysis showing protein of 100. She has 24-hour urine which shows she has proteinuria 3.7 grams. IMAGING STUDIES The patient had chest x-ray done which showed that she has a bibasilar area of consolidation with atelectasis and suspected effusion. V/Q scan of the lung was done which showed indeterminate scan. ASSESSMENT AND PLAN 1. COPD with exacerbation. 2. Chronic kidney disease. 3. Fluid overload status, anasarca. 4. Urinary tract infection. 5. Hyperkalemia. 6. Hyperlipidemia. 7. Diabetes mellitus. 8. Right leg wound. 9. Hypertension. The patient has chronic kidney disease and proteinuria most likely she has diabetic or hypertensive renal disease and creatinine is close to her baseline. At present we need to continue the diuretics. I agree with continuing the Lasix and I will also add metolazone 2.5 mg daily. Follow the urine output and potassium level along with the BUN and creatinine. Continue the antibiotic. Avoid any nephrotoxins. Thank you for the consultation. I will follow the patient while she is in the hospital. MD MAYTE Bhat/SAMPSON /8:40 PM /8:01 AM
[2017-10-28 08:32] LABS: AUTOMATED NEUTROPHIL # 7.4 TH/MM3 (1.8-7.7); BASOPHIL % 0.1 % (0.0-2.0); HEMATOCRIT 27.5 % (35.0-46.0); HEMO FLAGS DIFF FINAL; LYMPH % 6.1 % (9.0-44.0); LYMPHOCYTE # 0.5 TH/MM3 (1.0-4.8); MEAN CELL VOLUME 91.3 FL (80.0-100.0); MEAN CORPUSCULAR HEMOGLOBIN 29.9 PG (27.0-34.0); MEAN CORPUSCULAR HGB CONC 32.8 % (32.0-36.0); MONO % 2.2 % (0.0-8.0); NEUT % 91.6 % (16.0-70.0); PLATELET COUNT 286 TH/MM3 (150-450); RED BLOOD COUNT 3.01 MIL/MM3 (4.00-5.30); RED CELL DISTRIBUTION WIDTH 15.9 % (11.6-17.2)
[2017-10-28 09:03] LABS: BICARBONATE 21.8 MEQ/L (21.0-32.0); MAGNESIUM 2.4 MG/DL (1.5-2.5); POTASSIUM 5.3 MEQ/L (3.5-5.1)
[2017-10-28] MEDS: INSULIN ASPART SUPPLEMENTAL SCALE SQ SCH ×4 (09:40→21:00)
[2017-10-28] MEDS: SODIUM CHLORIDE 0.9% FLUSH 10 ML FLUSH IV FLUSH SCH ×2 (09:41→21:30)
[2017-10-28] MEDS: METOPROLOL TARTRATE 50 MG TAB PO SCH ×2 (09:42→21:29)
[2017-10-28] MEDS: ASPIRIN 81 MG CHEW TAB CHEW SCH (09:42)
[2017-10-28] MEDS: PRASUGREL 10 MG TAB PO SCH (09:42)
[2017-10-28] MEDS: METOLAZONE 2.5 MG TAB PO SCH (09:42)
[2017-10-28] MEDS: NIFEdipine 60 MG SUSTAINED RELEASE TAB PO SCH ×2 (09:42→21:29)
[2017-10-28] MEDS: AZITHROMYCIN INJ 500 MG in SODIUM CHLOR 0.9% 250 ML INJ 250 ML IV SCH (09:44)
[2017-10-28] MEDS: FUROSEMIDE 40 MG/4 ML VIAL IV PUSH SCH ×2 (09:44→18:16)
--- NOTE | 2017-10-28 10:06 | HHI.PR ---
Subjective Remarks Pt tells me that she is feeling much better. SOB has been improving. Denies any Chest pain, nausea or vomiting. Objective Vitals Vital Signs Date Time Temp Pulse Resp B/P (MAP) Pulse Ox O2 Delivery O2 Flow Rate FiO2 10/28/17 08:00 72 10/28/17 07:44 91 Simple Mask 9.00 10/28/17 07:29 143/64 (90) 10/28/17 07:00 Simple Mask 8.00 100 10/28/17 07:00 72 10/28/17 06:00 73 10/28/17 05:00 73 10/28/17 04:00 73 10/28/17 03:00 97.9 75 20 141/57 (85) 93 10/28/17 03:00 93 Simple Mask 8.00 10/28/17 03:00 74 10/28/17 02:00 73 10/28/17 01:00 74 10/28/17 00:00 75 10/27/17 23:30 98.5 76 20 163/67 (99) 96 10/27/17 23:30 96 Simple Mask 8.00 10/27/17 23:00 74 10/27/17 22:00 76 10/27/17 21:43 93 Simple Mask 9.00 10/27/17 21:00 96 Simple Mask 8.00 10/27/17 21:00 76 10/27/17 20:28 94 Simple Mask 9.00 10/27/17 20:22 97 Partial Rebreather 10.00 10/27/17 20:00 96 Non-Rebreather 10/27/17 20:00 97.9 79 20 160/70 (100) 96 10/27/17 20:00 78 10/27/17 19:00 76 10/27/17 16:22 93 Non-Rebreather 15.00 10/27/17 15:47 98.6 71 22 150/65 (93) 93 10/27/17 11:39 7 10/27/17 11:38 98.8 72 24 136/66 (89) 96 I/O 10/27/17 10/27/17 10/27/17 10/28/17 10/28/17 10/28/17 07:00 15:00 23:00 07:00 15:00 23:00 Intake Total 100 ml 100 ml 1580 ml 720 ml Output Total 600 ml 1000 ml Balance 100 ml 100 ml 980 ml -280 ml Intake Oral 420 ml 720 ml IV Total 100 ml 100 ml 700 ml Packed Cells 400 ml Blood Product IV Normal Saline Flush 60 ml Output Urine Total 600 ml 1000 ml # Bowel Movements 0 0 Result Diagram: 10/28/17 0710 10/28/17 0710 Imaging Last Impressions Chest X-Ray 10/27/17 0203 Signed Impressions: Service Date/Time: Friday, October 27, 2017 02:18 - CONCLUSION: Bibasilar areas of consolidation or atelectasis with suspected bilateral effusions being worse on the left. Rafa Nair MD Lung Scan-VQ Nuclear Medicine 10/27/17 0000 Signed Impressions: Service Date/Time: Friday, October 27, 2017 09:02 - CONCLUSION: Strictly indeterminate scan. Rafa Gates MD Objective Remarks GENERAL: female sitting up in bed in moderate distress SKIN: Right lower extremity chronic wound. dressing in place, d/c/i ENT: Nose drainage. simple mask in place NECK: Trachea midline. CARDIOVASCULAR: Regular rate and rhythm without murmurs RESPIRATORY: Decreased breath sounds bilaterally, left greater than right. poor air entry no wheezes. GASTROINTESTINAL: Abdomen soft, non-tender, nondistended. No guarding. MUSCULOSKELETAL: 2+ pitting edema to the knees. NEUROLOGICAL: Normal speech. A/P Assessment and Plan 66-year-old female with a history of diastolic CHF, bilateral pleural effusions with last thoracentesis on 10/04/17, diabetes mellitus, coronary artery disease, chronic kidney disease, COPD, hypertension, GERD, bone marrow suppression and chronic right lower extremity ulcer secondary to a dog bite presents to the emergency department with acutely worsening shortness of breath. 1. Respiratory failure/COPD exacerbation/CHF exacerbation/bilateral pleural effusions Chest x-ray significant for bibasilar areas of consolidation or atelectasis with suspected bilateral effusions left greater than right. pulm following. requiring simple mask up to 9 L On IV cefepime/azithro as pt has recently at rehab BNP 504 on IV steroids and IV Lasix. Nephrology following and added metolazone to help w diuresis. VQ scan indeterminate Wean O2 as tolerated Cardiology following, Dr. Colon, covering for Dr. Quadrat, pt is s/p cardiac cath 06/2017 with WENDI to first diagonal, cannot hold effient for thoracentesis. d /c thoracentesis orders. Goals are for aggressive diuresis. Repeat chest x-ray in AM. 2. Anemia H&H 7.6/23.5, now 08/25 post transfusion s/p 1 unit packed red blood cells 3. UTI Urine consistent with UTI. Pt is asymptomatic Urine culture pending 4. Hyperkalemia Potassium 5.5--> 5.3 No EKG changes Follow-up BMP 5. Chronic right lower extremity ulcer secondary to dog bite Area with no signs of infection [facility] 6. Insulin-dependent diabetes mellitus Continue home Levemir SSI 7. CKD Creatinine at baseline, 2.22 7. Hypertension Continue all medications FEN Heart healthy diet/ ADA Fluid restriction Electrolytes: As above heparin Discharge Planning Cardiology, pulm and nephrology following Aggressive diuresis as pt cannot undergo thoracentesis. d/c pending further clinical improvement f/u chest x-ray in AM Veronica Guillory MD Oct 28, 2017 10:06
--- NOTE | 2017-10-28 11:14 | HHI.NPPN ---
Subjective General Problems: Anemia, Edema, Hypertension Renal Failure: Chronic, Acute, Stage IV History of Present Illness 66-year-old female known to me from before with past medical history of ischemic heart disease, chronic obstructive pulmonary disease, hypertension, chronic kidney disease with diastolic dysfunction, congestive heart failure, history of edema in the legs came to the hospital with complaint of worsening shortness of breath and increased swelling of the legs. I was called to see the patient because of elevated BUN and creatinine. Additional Remarks Patient is alert, breathing is better, still with oxymask, no chest pain. Review of Systems General Constitutional: Fatigue Respiratory Lungs: SOB, Cough, Wheeze Cardiovascular Cardiac: Edema, KAMARA Objective Data Data Vital Signs Date Time Temp Pulse Resp B/P (MAP) Pulse Ox O2 Delivery O2 Flow Rate FiO2 10/28/17 10:00 78 10/28/17 09:00 74 10/28/17 08:00 72 10/28/17 07:44 91 Simple Mask 9.00 10/28/17 07:29 143/64 (90) 10/28/17 07:00 Simple Mask 8.00 100 10/28/17 07:00 72 10/28/17 06:00 73 10/28/17 05:00 73 10/28/17 04:00 73 10/28/17 03:00 97.9 75 20 141/57 (85) 93 10/28/17 03:00 93 Simple Mask 8.00 10/28/17 03:00 74 10/28/17 02:00 73 10/28/17 01:00 74 10/28/17 00:00 75 10/27/17 23:30 98.5 76 20 163/67 (99) 96 10/27/17 23:30 96 Simple Mask 8.00 10/27/17 23:00 74 10/27/17 22:00 76 10/27/17 21:43 93 Simple Mask 9.00 10/27/17 21:00 96 Simple Mask 8.00 10/27/17 21:00 76 10/27/17 20:28 94 Simple Mask 9.00 10/27/17 20:22 97 Partial Rebreather 10.00 10/27/17 20:00 96 Non-Rebreather 10/27/17 20:00 97.9 79 20 160/70 (100) 96 10/27/17 20:00 78 10/27/17 19:00 76 10/27/17 16:22 93 Non-Rebreather 15.00 10/27/17 15:47 98.6 71 22 150/65 (93) 93 10/27/17 11:39 7 10/27/17 11:38 98.8 72 24 136/66 (89) 96 -: 10/28/17 0710 10/28/17 0710 Physical Exam General Appearance: No Acute Distress, Comfortable Eyes Eye Exam: Pupils Equal Throat Throat Exam: Oral Mucosa [place] & Moist Neck Neck Exam: Neck Supple Pulmonary Resp Exam: Crackles, Rhonchi, Sputum, Decreased Bases, Diminished Breath Sounds Cardiology CV Exam: Regular, Normal Sinus Rhythm Gastrointestinal/Abdomen GI Exam: Soft, Non-Tender, Bowel Sounds Present, Non-Distended Extremeties Extremities Exam: Moderate Edema, Pitting Edema, Dependent Edema Extremeties Remarks Rt. lower leg with the dressing. Neurologic Neuro Exam: Alert, Awake, Oriented Assessment/Plan Assessment Summary: CONOR/Acute Renal Failure, Fluid/Volume Overload, Hypertension, CKD Stage IV Electrolyte Assessment: Hyperkalemia Problem List: (1) CAD (coronary artery disease) ICD Codes: I25.10 - Atherosclerotic heart disease of [place] coronary artery without angina pectoris Status: Chronic (2) COPD (chronic obstructive pulmonary disease) ICD Codes: J44.9 - Chronic obstructive pulmonary disease, unspecified Status: Chronic (3) Anemia ICD Codes: D64.9 - Anemia, unspecified Status: Chronic (4) Dog bite of multiple sites of right lower extremity ICD Codes: S81.851A - Open bite, right lower leg, initial encounter; W54.0XXA - Bitten by dog, initial encounter Status: Chronic (5) Respiratory failure ICD Codes: J96.90 - Respiratory failure, unspecified, unspecified whether with hypoxia or hypercapnia (6) Stage 4 chronic kidney disease ICD Codes: N18.4 - Chronic kidney disease, stage 4 (severe) (7) CONOR (acute kidney injury) ICD Codes: N17.9 - Acute kidney failure, unspecified Status: Acute Plan Patient has stage 4 chronic kidney disease. Also develop CONRO. Has generalized anasarca and resp. failure. On Lasix and Metolazone. Urine out put is better. Creatinine increase to 2.5, K is better. Continue diuretics. Told to restrict oral fluid intake. Flavio Toro MD Oct 28, 2017 11:14
[2017-10-28] MEDS: CEFEPIME INJ 2,000 MG in SODIUM CHLORIDE 0.9% INJ 100 ML IV SCH (12:00)
[2017-10-28] MEDS: HEPARIN SODIUM - SQ 10,000 UNITS/ML VIAL SQ SCH ×2 (12:19→21:29)
--- NOTE | 2017-10-28 14:04 | PD.CARD.PN ---
Subjective Subjective Remarks The patient states that she is breathing "much better" today. She noticed a marked improvement after transfusion yesterday. Evaluated by Dr Toro who started metolazone. Hemodynamically stable Objective Medications Current Medications Medications (Trade) Dose Ordered Sig/Marie Route Start Time Stop Time Status Last Admin (Aspirin Chew) 81 mg DAILY CHEW 10/27/17 09:00 10/28/17 09:42 (Bumetanide) 2 mg BID PO 10/27/17 09:00 Future Hold (Imdur) 60 mg DAILY@0700 PO 10/27/17 07:00 10/28/17 07:00 (Lopressor) 50 mg BID PO 10/27/17 09:00 10/28/17 09:42 (Procardia Xl) 60 mg Q12HR PO 10/27/17 09:00 10/28/17 09:42 (Effient) 10 mg DAILY PO 10/27/17 09:00 10/28/17 09:42 (NS Flush) 2 ml BID IV FLUSH 10/27/17 09:00 10/28/17 09:41 (NS Flush) 2 ml UNSCH PRN IV FLUSH 10/27/17 04:30 (Duoneb Neb) 1 ampule Q6HR NEB INH 10/27/17 10:00 10/28/17 07:44 (Albuterol Neb) 2.5 mg Q2HR NEB PRN INH 10/27/17 04:30 (Heparin Inj) 5,000 units Q8H SQ 10/27/17 04:30 Future hold 10/28/17 12:19 (SoluMEDROL INJ) 40 mg Q6H IV PUSH 10/27/17 09:00 10/28/17 09:40 (D50w (Vial) Inj) 50 ml UNSCH PRN IV PUSH 10/27/17 04:45 (Glucagon Inj) 1 mg UNSCH PRN OTHER 10/27/17 04:45 (NovoLOG SUPPLEMENTAL SCALE) 1 ACHS SLIDING SCALE SQ 10/27/17 08:00 10/28/17 12:19 (Lasix Inj) 40 mg BID@09,18 IV PUSH 10/27/17 09:00 10/28/17 09:44 (Levemir Inj) 8 units HS SQ 10/27/17 21:00 10/27/17 21:26 Cefepime HCl 2000 mg/Sodium Chloride 100 ml @ 200 mls/hr Q24H IV 10/27/17 12:00 10/28/17 12:00 Azithromycin 500 mg/Sodium Chloride 250 ml @ 250 mls/hr Q24H IV 10/27/17 11:00 10/28/17 09:44 (Zaroxolyn) 2.5 mg DAILY PO 10/28/17 09:00 10/28/17 09:42 Vital Signs / I&O Vital Signs Date Time Temp Pulse Resp B/P (MAP) Pulse Ox O2 Delivery O2 Flow Rate FiO2 10/28/17 12:00 65 10/28/17 11:00 97.6 69 16 138/58 (84) 96 10/28/17 11:00 69 10/28/17 10:00 78 10/28/17 09:00 74 10/28/17 08:00 72 10/28/17 07:44 91 Simple Mask 9.00 10/28/17 07:29 143/64 (90) 10/28/17 07:00 Simple Mask 8.00 100 10/28/17 07:00 72 10/28/17 06:00 73 10/28/17 05:00 73 10/28/17 04:00 73 10/28/17 03:00 97.9 75 20 141/57 (85) 93 10/28/17 03:00 93 Simple Mask 8.00 10/28/17 03:00 74 10/28/17 02:00 73 10/28/17 01:00 74 10/28/17 00:00 75 10/27/17 23:30 98.5 76 20 163/67 (99) 96 10/27/17 23:30 96 Simple Mask 8.00 10/27/17 23:00 74 10/27/17 22:00 76 10/27/17 21:43 93 Simple Mask 9.00 10/27/17 21:00 96 Simple Mask 8.00 10/27/17 21:00 76 10/27/17 20:28 94 Simple Mask 9.00 10/27/17 20:22 97 Partial Rebreather 10.00 10/27/17 20:00 96 Non-Rebreather 10/27/17 20:00 97.9 79 20 160/70 (100) 96 11/29/17 20:00 78 10/27/17 19:00 76 10/27/17 16:22 93 Non-Rebreather 15.00 10/27/17 15:47 98.6 71 22 150/65 (93) 93 I/O 10/27/17 10/27/17 10/27/17 10/28/17 10/28/17 10/28/17 07:00 15:00 23:00 07:00 15:00 23:00 Intake Total 100 ml 100 ml 1580 ml 720 ml Output Total 600 ml 1000 ml Balance 100 ml 100 ml 980 ml -280 ml Intake Oral 420 ml 720 ml IV Total 100 ml 100 ml 700 ml Packed Cells 400 ml Blood Product IV Normal Saline Flush 60 ml Output Urine Total 600 ml 1000 ml # Bowel Movements 0 0 Physical Exam GENERAL: Elderly female in C[facility], appears less pallor compared to yesterday SKIN: Warm and dry. HEAD: Normocephalic. EYES: No scleral icterus. No injection or drainage. NECK: Supple, trachea midline. CARDIOVASCULAR: Regular rate and rhythm RESPIRATORY: Diminished bases, no accessory muscle use. GASTROINTESTINAL: Abdomen soft, non-tender, nondistended. philippe concentrated urine MUSCULOSKELETAL: Scattered bruising, right lower extremity wound dressing C/D/I , edema improving 1+ BLE BACK: Nontender without obvious deformity. Laboratory Laboratory Tests Test 10/28/17 07:10 White Blood Count 8.0 TH/MM3 Red Blood Count 3.01 MIL/MM3 Hemoglobin 9.0 GM/DL Hematocrit 27.5 % Mean Corpuscular Volume 91.3 FL Mean Corpuscular Hemoglobin 29.9 PG Mean Corpuscular Hemoglobin Concent 32.8 % Red Cell Distribution Width 15.9 % Platelet Count 286 TH/MM3 Mean Platelet Volume 8.5 FL Neutrophils (%) (Auto) 91.6 % Lymphocytes (%) (Auto) 6.1 % Monocytes (%) (Auto) 2.2 % Eosinophils (%) (Auto) 0.0 % Basophils (%) (Auto) 0.1 % Neutrophils # (Auto) 7.4 TH/MM3 Lymphocytes # (Auto) 0.5 TH/MM3 Monocytes # (Auto) 0.2 TH/MM3 Eosinophils # (Auto) 0.0 TH/MM3 Basophils # (Auto) 0.0 TH/MM3 CBC Comment DIFF FINAL Differential Comment Blood Urea Nitrogen 75 MG/DL Creatinine 2.47 MG/DL Random Glucose 189 MG/DL Calcium Level 9.6 MG/DL Phosphorus Level 5.3 MG/DL Magnesium Level 2.4 MG/DL Sodium Level 141 MEQ/L Potassium Level 5.3 MEQ/L Chloride Level 107 MEQ/L Carbon Dioxide Level 21.8 MEQ/L Anion Gap 12 MEQ/L Estimat Glomerular Filtration Rate 20 ML/MIN Imaging Last 72 hours Impressions Chest X-Ray 10/27/17 0203 Signed Impressions: Service Date/Time: Friday, October 27, 2017 02:18 - CONCLUSION: Bibasilar areas of consolidation or atelectasis with suspected bilateral effusions being worse on the left. Rafa Nair MD Lung Scan-VQ Nuclear Medicine 10/27/17 0000 Signed Impressions: Service Date/Time: Friday, October 27, 2017 09:02 - CONCLUSION: Strictly indeterminate scan. Rafa Gates MD Assessment and Plan Assessment and Plan Hypoxic respiratory insufficiency and SOB due to diastolic CHF exacerbation, pleural effusion, amemia, COPD and metabolic acidosis ASHD s/p cardiac cath 06/2017 with WENDI to first diagonal CKD Hyperkalemia PLAN: The patient is improving, we will continue to monitor Pulmonary and nephrology following. The patient was seen and evaluated by Dr Colon who completed face to face encounter and physical exam and participated in evaluation and management. Lupe Pinedo Oct 28, 2017 14:04
--- NOTE | 2017-10-28 19:20 | HHI.PR ---
Subjective Remarks 66 YO WF with SOB,CHF,Pl eff,CAD Had PRBC Breathing much better Weaned to Oxymask Objective Vital Signs Vital Signs Date Time Temp Pulse Resp B/P (MAP) Pulse Ox O2 Delivery O2 Flow Rate FiO2 10/28/17 18:00 69 10/28/17 17:00 63 10/28/17 16:00 69 10/28/17 15:03 92 Simple Mask 9.00 10/28/17 15:00 67 10/28/17 15:00 97.6 66 18 132/75 (94) 96 10/28/17 14:00 70 10/28/17 12:00 65 10/28/17 11:00 97.6 69 16 138/58 (84) 96 10/28/17 11:00 69 10/28/17 10:00 78 10/28/17 09:00 74 10/28/17 08:00 72 10/28/17 07:44 91 Simple Mask 9.00 10/28/17 07:29 143/64 (90) 10/28/17 07:00 Simple Mask 8.00 100 10/28/17 07:00 72 10/28/17 06:00 73 10/28/17 05:00 73 10/28/17 04:00 73 10/28/17 03:00 97.9 75 20 141/57 (85) 93 10/28/17 03:00 93 Simple Mask 8.00 10/28/17 03:00 74 10/28/17 02:00 73 10/28/17 01:00 74 10/28/17 00:00 75 10/27/17 23:30 98.5 76 20 163/67 (99) 96 10/27/17 23:30 96 Simple Mask 8.00 10/27/17 23:00 74 10/27/17 22:00 76 10/27/17 21:43 93 Simple Mask 9.00 10/27/17 21:00 96 Simple Mask 8.00 10/27/17 21:00 76 10/27/17 20:28 94 Simple Mask 9.00 10/27/17 20:22 97 Partial Rebreather 10.00 10/27/17 20:00 96 Non-Rebreather 10/27/17 20:00 97.9 79 20 160/70 (100) 96 11/29/17 20:00 78 I/O 10/27/17 10/27/17 10/27/17 10/28/17 10/28/17 10/28/17 07:00 15:00 23:00 07:00 15:00 23:00 Intake Total 100 ml 100 ml 1580 ml 720 ml 500 ml Output Total 600 ml 1000 ml 600 ml Balance 100 ml 100 ml 980 ml -280 ml -100 ml Intake Oral 420 ml 720 ml 500 ml IV Total 100 ml 100 ml 700 ml Packed Cells 400 ml Blood Product IV Normal Saline Flush 60 ml Output Urine Total 600 ml 1000 ml 600 ml # Bowel Movements 0 0 Result Diagram: 10/28/1770910/28/17709 Objective Remarks GENERAL: Obese WF mild sob SKIN: Warm and dry. HEAD: Normocephalic. EYES: No scleral icterus. No injection or drainage. NECK: Supple, trachea midline. No JVD or lymphadenopathy. CARDIOVASCULAR: Regular rate and rhythm without murmurs, gallops, or rubs. RESPIRATORY: Breath sounds equal bilaterally. No accessory muscle use. GASTROINTESTINAL: Abdomen soft, non-tender, nondistended. MUSCULOSKELETAL: No cyanosis, ++ edema. BACK: Nontender without obvious deformity. No CVA tenderness. A/P Assessment and Plan Dysnoea, improving Hypoxia CHF Pleural effusion COPD Obesity CAD, s/p WENDI PLAN: Diurease Aerosol nebs Supplement 02 Monitor renal functions Aaron Blankenship MD Oct 28, 2017 19:20
[2017-10-28] MEDS: INSULIN DETEMIR 100 UNITS/ML VIAL SQ SCH (21:00)
[2017-10-29] VITALS (30 sets, daily range): BP systolic 128–144; BP diastolic 63–76; PULSE 70–94; RESP 18; TEMP 97.5–98.3; O2SAT 92–96
[2017-10-29] MEDS: methylPREDNISolone SOD SUCC 40 MG/1 ML VIAL IV PUSH SCH ×4 (03:53→21:47)
[2017-10-29] MEDS: HEPARIN SODIUM - SQ 10,000 UNITS/ML VIAL SQ SCH ×2 (03:54→12:59)
[2017-10-29] MEDS: RESP: ALBUTEROL 2.5 MG/IPRATROPIUM 0.5 MG NEB (SCH) INH ×4 (04:14→20:54)
--- NOTE | 2017-10-29 05:58 | RADRPT ---
EXAM DATE/TIME: 10/29/2017 05:22 [facility] COMPARISON: CHEST SINGLE AP, October 27, 2017, 2:18. INDICATIONS : Evaluate Infiltrate MEDICAL HISTORY : Congestive heart failure. SURGICAL HISTORY : None. ENCOUNTER: Subsequent ACUITY: 2 days PAIN SCORE: 7/10 LOCATION: Bilateral chest FINDINGS: Portable AP views of the chest demonstrate a normal-sized cardiac silhouette. Patient is rotated and underinflated. There are moderate bibasilar pleural-parenchymal opacities, left slightly larger than right. No pneumothorax is visualized. The patient's chin obscures the left lung apex. CONCLUSION: Stable chest x-ray with bibasilar opacities representing pleural effusions with associated volume los s and/or consolidation. Rafa Ortiz MD on October 29, 2017 at 5:56 Board Certified Radiologist. This report was verified electronically.
[2017-10-29] MEDS: ISOSORBIDE MONONITRATE 60 MG TAB PO SCH (07:00)
[2017-10-29] MEDS: INSULIN ASPART SUPPLEMENTAL SCALE SQ SCH ×4 (09:35→21:00)
[2017-10-29] MEDS: NIFEdipine 60 MG SUSTAINED RELEASE TAB PO SCH ×2 (09:37→21:47)
[2017-10-29] MEDS: FUROSEMIDE 40 MG/4 ML VIAL IV PUSH SCH ×2 (09:37→18:19)
[2017-10-29] MEDS: ASPIRIN 81 MG CHEW TAB CHEW SCH (09:38)
[2017-10-29] MEDS: METOLAZONE 2.5 MG TAB PO SCH (09:38)
[2017-10-29] MEDS: SODIUM CHLORIDE 0.9% FLUSH 10 ML FLUSH IV FLUSH SCH ×2 (09:38→21:48)
[2017-10-29] MEDS: METOPROLOL TARTRATE 50 MG TAB PO SCH ×2 (09:38→21:47)
--- NOTE | 2017-10-29 10:16 | HHI.NPPN ---
Subjective General Problems: Anemia, Edema, Hypertension Renal Failure: Chronic, Acute, Stage IV History of Present Illness 66-year-old female known to me from before with past medical history of ischemic heart disease, chronic obstructive pulmonary disease, hypertension, chronic kidney disease with diastolic dysfunction, congestive heart failure, history of edema in the legs came to the hospital with complaint of worsening shortness of breath and increased swelling of the legs. I was called to see the patient because of elevated BUN and creatinine. Additional Remarks Patient is alert, breathing is better, eating better. Review of Systems General Constitutional: Fatigue Respiratory Lungs: SOB, Cough, Wheeze Cardiovascular Cardiac: Edema, KAMARA Objective Data Data Vital Signs Date Time Temp Pulse Resp B/P (MAP) Pulse Ox O2 Delivery O2 Flow Rate FiO2 10/29/17 09:43 92 Simple Mask 6.00 10/29/17 09:17 93 Simple Mask 6.00 10/29/17 09:17 97.6 90 18 132/63 (86) 93 10/29/17 06:00 84 10/29/17 05:00 72 10/29/17 04:14 92 Simple Mask 6.00 10/29/17 04:00 98.3 89 18 128/63 (84) 96 10/29/17 04:00 70 10/29/17 03:52 91 Simple Mask 5.00 10/29/17 03:00 86 10/29/17 02:55 93 Simple Mask 4.00 10/29/17 02:00 86 10/29/17 01:00 86 10/29/17 00:00 90 10/28/17 23:30 95 Simple Mask 6.00 10/28/17 23:30 97.8 89 18 139/73 (95) 96 10/28/17 23:00 90 10/28/17 22:00 90 10/28/17 21:00 86 10/28/17 20:00 86 10/28/17 19:30 96 Simple Mask 8.00 10/28/17 19:30 97.8 87 18 141/70 (93) 96 10/28/17 19:00 75 10/28/17 18:00 69 10/28/17 17:00 63 10/28/17 16:00 69 10/28/17 15:03 92 Simple Mask 9.00 10/28/17 15:00 67 10/28/17 15:00 97.6 66 18 132/75 (94) 96 10/28/17 14:00 70 10/28/17 12:00 65 10/28/17 11:00 97.6 69 16 138/58 (84) 96 10/28/17 11:00 69 -: 10/28/17 0710 10/28/17 0710 Physical Exam General Appearance: No Acute Distress, Comfortable Eyes Eye Exam: Pupils Equal Throat Throat Exam: Oral Mucosa [place] & Moist Neck Neck Exam: Neck Supple Pulmonary Resp Exam: Crackles, Rhonchi, Sputum, Decreased Bases, Diminished Breath Sounds Cardiology CV Exam: Regular, Normal Sinus Rhythm Gastrointestinal/Abdomen GI Exam: Soft, Non-Tender, Bowel Sounds Present, Non-Distended Extremeties Extremities Exam: Moderate Edema, Pitting Edema, Dependent Edema Extremeties Remarks Rt. lower leg with the dressing. Neurologic Neuro Exam: Alert, Awake, Oriented Assessment/Plan Assessment Summary: CONOR/Acute Renal Failure, Fluid/Volume Overload, Hypertension, CKD Stage IV Electrolyte Assessment: Hyperkalemia Problem List: (1) CAD (coronary artery disease) ICD Codes: I25.10 - Atherosclerotic heart disease of [place] coronary artery without angina pectoris Status: Chronic (2) COPD (chronic obstructive pulmonary disease) ICD Codes: J44.9 - Chronic obstructive pulmonary disease, unspecified Status: Chronic (3) Anemia ICD Codes: D64.9 - Anemia, unspecified Status: Chronic (4) Dog bite of multiple sites of right lower extremity ICD Codes: S81.851A - Open bite, right lower leg, initial encounter; W54.0XXA - Bitten by dog, initial encounter Status: Chronic (5) Respiratory failure ICD Codes: J96.90 - Respiratory failure, unspecified, unspecified whether with hypoxia or hypercapnia (6) Stage 4 chronic kidney disease ICD Codes: N18.4 - Chronic kidney disease, stage 4 (severe) (7) CONOR (acute kidney injury) ICD Codes: N17.9 - Acute kidney failure, unspecified Status: Acute Plan Patient has stage 4 chronic kidney disease. Also develop CONOR. Has generalized anasarca and resp. failure. On Lasix and Metolazone. Urine out put is better. Continue diuretics. Told to restrict oral fluid intake. No new BMP today, will follow in AM. Flavio Toro MD Oct 29, 2017 10:16
[2017-10-29] MEDS: AZITHROMYCIN INJ 500 MG in SODIUM CHLOR 0.9% 250 ML INJ 250 ML IV SCH (12:52)
--- NOTE | 2017-10-29 14:21 | PD.CARD.PN ---
Subjective Subjective Remarks Clinically improving. Less SOB, requiring less O2. Diuresing. BP and HR stable. Objective Medications Current Medications Medications (Trade) Dose Ordered Sig/Marie Route Start Time Stop Time Status Last Admin (Aspirin Chew) 81 mg DAILY CHEW 10/27/17 09:00 10/29/17 09:38 (Bumetanide) 2 mg BID PO 10/27/17 09:00 Future Hold (Imdur) 60 mg DAILY@0700 PO 10/27/17 07:00 10/29/17 07:00 (Lopressor) 50 mg BID PO 10/27/17 09:00 10/29/17 09:38 (Procardia Xl) 60 mg Q12HR PO 10/27/17 09:00 10/29/17 09:37 (Effient) 10 mg DAILY PO 10/27/17 09:00 10/28/17 09:42 (NS Flush) 2 ml BID IV FLUSH 10/27/17 09:00 10/29/17 09:38 (NS Flush) 2 ml UNSCH PRN IV FLUSH 10/27/17 04:30 (Duoneb Neb) 1 ampule Q6HR NEB INH 10/27/17 10:00 10/29/17 09:42 (Albuterol Neb) 2.5 mg Q2HR NEB PRN INH 10/27/17 04:30 (Heparin Inj) 5,000 units Q8H SQ 10/27/17 04:30 Future hold 10/29/17 12:59 (SoluMEDROL INJ) 40 mg Q6H IV PUSH 10/27/17 09:00 10/29/17 09:37 (D50w (Vial) Inj) 50 ml UNSCH PRN IV PUSH 10/27/17 04:45 (Glucagon Inj) 1 mg UNSCH PRN OTHER 10/27/17 04:45 (NovoLOG SUPPLEMENTAL SCALE) 1 ACHS SLIDING SCALE SQ 10/27/17 08:00 10/29/17 12:45 (Lasix Inj) 40 mg BID@09,18 IV PUSH 10/27/17 09:00 10/29/17 09:37 (Levemir Inj) 8 units HS SQ 10/27/17 21:00 10/28/17 21:00 Cefepime HCl 2000 mg/Sodium Chloride 100 ml @ 200 mls/hr Q24H IV 10/27/17 12:00 10/28/17 12:00 Azithromycin 500 mg/Sodium Chloride 250 ml @ 250 mls/hr Q24H IV 10/27/17 11:00 10/29/17 12:52 (Zaroxolyn) 2.5 mg DAILY PO 10/28/17 09:00 10/29/17 09:38 Vital Signs / I&O Vital Signs Date Time Temp Pulse Resp B/P (MAP) Pulse Ox O2 Delivery O2 Flow Rate FiO2 10/29/17 12:51 91 Simple Mask 6.00 10/29/17 12:46 97.5 89 18 140/70 (93) 92 10/29/17 12:45 88 Simple Mask 5.00 10/29/17 09:43 92 Simple Mask 6.00 10/29/17 09:17 93 Simple Mask 6.00 10/29/17 09:17 97.6 90 18 132/63 (86) 93 10/29/17 06:00 84 10/29/17 05:00 72 10/29/17 04:14 92 Simple Mask 6.00 10/29/17 04:00 98.3 89 18 128/63 (84) 96 10/29/17 04:00 70 10/29/17 03:52 91 Simple Mask 5.00 10/29/17 03:00 86 10/29/17 02:55 93 Simple Mask 4.00 10/29/17 02:00 86 10/29/17 01:00 86 10/29/17 00:00 90 10/28/17 23:30 95 Simple Mask 6.00 10/28/17 23:30 97.8 89 18 139/73 (95) 96 10/28/17 23:00 90 10/28/17 22:00 90 10/28/17 21:00 86 10/28/17 20:00 86 10/28/17 19:30 96 Simple Mask 8.00 10/28/17 19:30 97.8 87 18 141/70 (93) 96 10/28/17 19:00 75 10/28/17 18:00 69 10/28/17 17:00 63 10/28/17 16:00 69 10/28/17 15:03 92 Simple Mask 9.00 10/28/17 15:00 67 10/28/17 15:00 97.6 66 18 132/75 (94) 96 I/O 10/28/17 10/28/17 10/28/17 10/29/17 10/29/17 10/29/17 07:00 15:00 23:00 07:00 15:00 23:00 Intake Total 720 ml 500 ml 480 ml Output Total 1000 ml 600 ml 550 ml Balance -280 ml -100 ml -70 ml Intake Oral 720 ml 500 ml 480 ml Output Urine Total 1000 ml 600 ml 550 ml # Bowel Movements 0 1 Physical Exam GENERAL: Elderly female in CIC SKIN: Warm and dry. HEAD: Normocephalic. EYES: No scleral icterus. No injection or drainage. NECK: Supple, trachea midline. CARDIOVASCULAR: Regular rate and rhythm RESPIRATORY: Diminished bases, no accessory muscle use. Simple mask GASTROINTESTINAL: Abdomen soft, non-tender, nondistended. philippe concentrated urine MUSCULOSKELETAL: Scattered bruising, right lower extremity wound dressing C/D/I , edema improving 1+ BLE BACK: Nontender without obvious deformity. Laboratory Laboratory Tests Test 10/27/17 02:10 10/27/17 02:17 10/27/17 02:25 10/28/17 07:10 Red Blood Count 2.54 MIL/MM3 (4.00-5.30) 3.01 MIL/MM3 (4.00-5.30) Hemoglobin 7.6 GM/DL (11.6-15.3) 9.0 GM/DL (11.6-15.3) Hematocrit 23.5 % (35.0-46.0) 27.5 % (35.0-46.0) Neutrophils (%) (Auto) 82.2 % (16.0-70.0) 91.6 % (16.0-70.0) Lymphocytes # (Auto) 0.7 TH/MM3 (1.0-4.8) 0.5 TH/MM3 (1.0-4.8) Blood Urea Nitrogen 65 MG/DL (7-18) 75 MG/DL (7-18) Creatinine 2.22 MG/DL (0.50-1.00) 2.47 MG/DL (0.50-1.00) Random Glucose 195 MG/DL (74-106) 189 MG/DL (74-106) Total Protein 6.0 GM/DL (6.4-8.2) Albumin 2.5 GM/DL (3.4-5.0) Alkaline Phosphatase 164 U/L (45-117) Potassium Level 5.5 MEQ/L (3.5-5.1) 5.3 MEQ/L (3.5-5.1) Chloride Level 109 MEQ/L (98-107) Estimat Glomerular Filtration Rate 22 ML/MIN (>89) 20 ML/MIN (>89) Creatine Kinase MB 6.5 NG/ML (0.5-3.6) B-Type Natriuretic Peptide 504 PG/ML (0-100) Blood Gas HCO3 19 mmol/L (22-26) Blood Gas Base Excess -5.5 mmol/L (-2-2) Arterial Blood pH 7.34 (7.380-7.420) Arterial Blood Partial Pressure CO2 37 mmHg (38-42) Blood Gas Hemoglobin 10.8 G/DL (12.0-16.0) Urine Turbidity HAZY (CLEAR) Urine Protein 100 mg/dL (NEG-TRACE) Urine Ketones 10 mg/dL (NEG) Urine Occult Blood TRACE (NEG) Urine WBC Clumps OCC (NONE) Urine Bacteria MOD /hpf (NONE) Lymphocytes (%) (Auto) 6.1 % (9.0-44.0) Phosphorus Level 5.3 MG/DL (2.5-4.9) Imaging Last 24 hours Impressions Chest X-Ray 10/29/17 0000 Signed Impressions: Service Date/Time: Sunday, October 29, 2017 05:22 - CONCLUSION: Stable chest x-ray with bibasilar opacities representing pleural effusions with associated volume loss and/or consolidation. Rafa Ortiz MD Assessment and Plan Assessment and Plan Hypoxic respiratory insufficiency and SOB due to diastolic CHF exacerbation, pleural effusion, anemia, COPD and metabolic acidosis ASHD s/p cardiac cath 06/2017 with WENDI to first diagonal Acute on chronic renal insufficiency PLAN: The patient is improving, we will continue to monitor Pulmonary and nephrology following. The patient was seen and evaluated by Dr Colon who completed face to face encounter and physical exam and participated in evaluation and management. Lupe Pinedo Oct 29, 2017 14:21
--- NOTE | 2017-10-29 14:22 | HHI.PR ---
Subjective Remarks Patient states she's feeling much better since being admitted to the hospital. Dyspnea is improved. She is on Suboxone facemask. Patient is known to me from prior hospitalization. Objective Vitals Vital Signs Date Time Temp Pulse Resp B/P (MAP) Pulse Ox O2 Delivery O2 Flow Rate FiO2 10/29/17 12:51 91 Simple Mask 6.00 10/29/17 12:46 97.5 89 18 140/70 (93) 92 10/29/17 12:45 88 Simple Mask 5.00 10/29/17 09:43 92 Simple Mask 6.00 10/29/17 09:17 93 Simple Mask 6.00 10/29/17 09:17 97.6 90 18 132/63 (86) 93 10/29/17 06:00 84 10/29/17 05:00 72 10/29/17 04:14 92 Simple Mask 6.00 10/29/17 04:00 98.3 89 18 128/63 (84) 96 10/29/17 04:00 70 10/29/17 03:52 91 Simple Mask 5.00 10/29/17 03:00 86 10/29/17 02:55 93 Simple Mask 4.00 10/29/17 02:00 86 10/29/17 01:00 86 10/29/17 00:00 90 10/28/17 23:30 95 Simple Mask 6.00 10/28/17 23:30 97.8 89 18 139/73 (95) 96 10/28/17 23:00 90 10/28/17 22:00 90 10/28/17 21:00 86 10/28/17 20:00 86 10/28/17 19:30 96 Simple Mask 8.00 10/28/17 19:30 97.8 87 18 141/70 (93) 96 10/28/17 19:00 75 10/28/17 18:00 69 10/28/17 17:00 63 10/28/17 16:00 69 10/28/17 15:03 92 Simple Mask 9.00 10/28/17 15:00 67 10/28/17 15:00 97.6 66 18 132/75 (94) 96 I/O 10/28/17 10/28/17 10/28/17 10/29/17 10/29/17 10/29/17 07:00 15:00 23:00 07:00 15:00 23:00 Intake Total 720 ml 500 ml 480 ml Output Total 1000 ml 600 ml 550 ml Balance -280 ml -100 ml -70 ml Intake Oral 720 ml 500 ml 480 ml Output Urine Total 1000 ml 600 ml 550 ml # Bowel Movements 0 1 Result Diagram: 10/28/1770910/28/17 07 Objective Remarks GENERAL: Well-nourished, well-developed patient. SKIN: Warm and dry. HEAD: Normocephalic. EYES: No scleral icterus. No injection or drainage. NECK: Supple, trachea midline. No JVD or lymphadenopathy. CARDIOVASCULAR: Regular rate and rhythm without murmurs, gallops, or rubs. RESPIRATORY: Breath sounds equal bilaterally. No accessory muscle use. GASTROINTESTINAL: Abdomen soft, non-tender, nondistended. EXTREMITIES: Trace pedal edema right lower extremity, 1+ edema of the left lower extremity and left thigh. She has a shallow wound on her right lower extremity which is well healing. NEUROLOGICAL: Awake, alert, and oriented x 3. Non-focal. A/P Assessment and Plan 66-year-old female with a history of diastolic CHF, bilateral pleural effusions with last thoracentesis on 10/04/17, diabetes mellitus, coronary artery disease, chronic kidney disease, COPD, hypertension, GERD, bone marrow suppression and chronic right lower extremity ulcer secondary to a dog bite presents to the emergency department with acutely worsening shortness of breath. 1. Respiratory failure/COPD exacerbation/CHF exacerbation/bilateral pleural effusions Chest x-ray significant for bibasilar areas of consolidation or atelectasis with suspected bilateral effusions left greater than right. pulm following. requiring simple mask On IV cefepime/azithro empirically BNP 504 -LVEF 55% on [facility] 06/2017 on IV steroids and IV Lasix. Nephrology following and added metolazone to help w diuresis. VQ scan indeterminate Wean O2 as tolerated Cardiology following, Dr. Colon (discussed with him today), covering for Dr. Reddy, pt is s/p cardiac cath 06/2017 with WENDI to first diagonal, cannot hold effient for thoracentesis. d/c thoracentesis orders. Goals are for aggressive diuresis. chest x-ray this morning - stable by basilar opacities representing pleural effusions with associated volume loss and/or consolidation 2. Anemia H&H 7.6/23.5, improved to 9 status post 1 unit packed red blood cells 3. Hyperkalemia Potassium 5.5--> 5.3 No EKG changes repeat BMP a.m. 5. 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 Insulin-dependent diabetes mellitus Continue home Levemir SSI 7. CKD Creatinine at baseline, 2.22 Nephrology ff 7. Hypertension Continue all medications FEN Heart healthy diet/ ADA Fluid restriction Electrolytes: As above heparin 5000 units SQ q 12 h for DVT px Uzma Prabhakar MD Oct 29, 2017 14:22
[2017-10-29] MEDS: CEFEPIME INJ 2,000 MG in SODIUM CHLORIDE 0.9% INJ 100 ML IV SCH (15:00)
--- NOTE | 2017-10-29 18:33 | HHI.PR ---
Subjective Remarks 66 YO WF with SOB,CHF,Pl eff,CAD Had PRBC Breathing much better Weaned to Oxymask Family at Objective Vital Signs Vital Signs Date Time Temp Pulse Resp B/P (MAP) Pulse Ox O2 Delivery O2 Flow Rate FiO2 10/29/17 17:04 80 10/29/17 16:01 92 Simple Mask 6.00 10/29/17 16:00 82 10/29/17 15:03 97.6 83 18 140/70 (93) 92 10/29/17 15:00 83 10/29/17 14:00 86 10/29/17 13:00 88 10/29/17 12:51 91 Simple Mask 6.00 10/29/17 12:46 97.5 89 18 140/70 (93) 92 10/29/17 12:45 88 Simple Mask 5.00 10/29/17 12:00 88 10/29/17 11:00 91 10/29/17 10:00 86 10/29/17 09:43 92 Simple Mask 6.00 10/29/17 09:17 93 Simple Mask 6.00 10/29/17 09:17 97.6 90 18 132/63 (86) 93 10/29/17 09:00 84 10/29/17 08:00 84 10/29/17 07:00 85 10/29/17 06:00 84 10/29/17 05:00 72 10/29/17 04:14 92 Simple Mask 6.00 10/29/17 04:00 98.3 89 18 128/63 (84) 96 10/29/17 04:00 70 10/29/17 03:52 91 Simple Mask 5.00 10/29/17 03:00 86 10/29/17 02:55 93 Simple Mask 4.00 10/29/17 02:00 86 10/29/17 01:00 86 10/29/17 00:00 90 10/28/17 23:30 95 Simple Mask 6.00 10/28/17 23:30 97.8 89 18 139/73 (95) 96 10/28/17 23:00 90 10/28/17 22:00 90 10/28/17 21:00 86 10/28/17 20:00 86 10/28/17 19:30 96 Simple Mask 8.00 10/28/17 19:30 97.8 87 18 141/70 (93) 96 10/28/17 19:00 75 I/O 10/28/17 10/28/17 10/28/17 10/29/17 10/29/17 10/29/17 07:00 15:00 23:00 07:00 15:00 23:00 Intake Total 720 ml 500 ml 480 ml 250 ml 100 ml Output Total 1000 ml 600 ml 550 ml 650 ml Balance -280 ml -100 ml -70 ml 250 ml -550 ml Intake Oral 720 ml 500 ml 480 ml IV Total 250 ml 100 ml Output Urine Total 1000 ml 600 ml 550 ml 650 ml # Bowel Movements 0 1 Result Diagram: 10/28/17 0710 10/28/17 0710 Objective Remarks GENERAL: Obese WF mild sob SKIN: Warm and dry. HEAD: Normocephalic. EYES: No scleral icterus. No injection or drainage. NECK: Supple, trachea midline. No JVD or lymphadenopathy. CARDIOVASCULAR: Regular rate and rhythm without murmurs, gallops, or rubs. RESPIRATORY: Breath sounds equal bilaterally. No accessory muscle use. GASTROINTESTINAL: Abdomen soft, non-tender, nondistended. MUSCULOSKELETAL: No cyanosis, ++ edema. BACK: Nontender without obvious deformity. No CVA tenderness. A/P Assessment and Plan Dysnoea, improving Hypoxia CHF Pleural effusion COPD Obesity CAD, s/p WENDI PLAN: Diurease Aerosol nebs Supplement 02 Monitor renal functions Aaron Blankenship MD Oct 29, 2017 18:33
[2017-10-29] MEDS: INSULIN DETEMIR 100 UNITS/ML VIAL SQ SCH (21:00)
[2017-10-30] VITALS (18 sets, daily range): BP systolic 123–142; BP diastolic 64–75; PULSE 80–94; RESP 18–20; TEMP 96–97.8; O2SAT 91–97
[2017-10-30] MEDS: HEPARIN SODIUM - SQ 10,000 UNITS/ML VIAL SQ SCH ×2 (01:56→13:13)
[2017-10-30] MEDS ORDERED: traMADol HCL 50 MG TAB PO ONE (02:00)
[2017-10-30] MEDS: RESP: ALBUTEROL 2.5 MG/IPRATROPIUM 0.5 MG NEB (SCH) INH ×4 (02:55→21:33)
[2017-10-30] MEDS: methylPREDNISolone SOD SUCC 40 MG/1 ML VIAL IV PUSH SCH ×2 (03:00→09:28)
[2017-10-30] MEDS: ISOSORBIDE MONONITRATE 60 MG TAB PO SCH (06:04)
[2017-10-30 06:58] LABS: AUTOMATED NEUTROPHIL # 5.8 TH/MM3 (1.8-7.7); BASOPHIL % 0.2 % (0.0-2.0); HEMATOCRIT 27.6 % (35.0-46.0); HEMO FLAGS DIFF FINAL; LYMPH % 4.8 % (9.0-44.0); LYMPHOCYTE # 0.3 TH/MM3 (1.0-4.8); MEAN CELL VOLUME 92.7 FL (80.0-100.0); MEAN CORPUSCULAR HEMOGLOBIN 30.2 PG (27.0-34.0); MEAN CORPUSCULAR HGB CONC 32.6 % (32.0-36.0); MONO % 1.6 % (0.0-8.0); NEUT % 93.4 % (16.0-70.0); PLATELET COUNT 270 TH/MM3 (150-450); RED BLOOD COUNT 2.98 MIL/MM3 (4.00-5.30); RED CELL DISTRIBUTION WIDTH 15.6 % (11.6-17.2); WHITE BLOOD COUNT 6.2 TH/MM3 (4.0-11.0)
[2017-10-30 07:26] LABS: BICARBONATE 20.2 MEQ/L (21.0-32.0); POTASSIUM 4.9 MEQ/L (3.5-5.1)
[2017-10-30] MEDS: INSULIN ASPART SUPPLEMENTAL SCALE SQ SCH ×4 (08:00→23:12)
[2017-10-30] MEDS: PRASUGREL 10 MG TAB PO SCH (09:29)
[2017-10-30] MEDS: METOPROLOL TARTRATE 50 MG TAB PO SCH ×2 (09:29→23:08)
[2017-10-30] MEDS: METOLAZONE 2.5 MG TAB PO SCH (09:29)
[2017-10-30] MEDS: FUROSEMIDE 40 MG/4 ML VIAL IV PUSH SCH ×2 (09:29→18:40)
[2017-10-30] MEDS: NIFEdipine 60 MG SUSTAINED RELEASE TAB PO SCH ×2 (09:29→23:07)
[2017-10-30] MEDS: SODIUM CHLORIDE 0.9% FLUSH 10 ML FLUSH IV FLUSH SCH ×2 (09:30→23:08)
--- NOTE | 2017-10-30 10:29 | HHI.NPPN ---
Subjective General Problems: Anemia, Edema, Hypertension Renal Failure: Chronic, Acute, Stage IV History of Present Illness 66-year-old female known to me from before with past medical history of ischemic heart disease, chronic obstructive pulmonary disease, hypertension, chronic kidney disease with diastolic dysfunction, congestive heart failure, history of edema in the legs came to the hospital with complaint of worsening shortness of breath and increased swelling of the legs. I was called to see the patient because of elevated BUN and creatinine. Additional Remarks Patient is alert, breathing is better, with VM, and edema in Rt. leg is much better. Review of Systems General Constitutional: Fatigue Respiratory Lungs: SOB, Cough, Wheeze Cardiovascular Cardiac: Edema, KAMARA Objective Data Data Vital Signs Date Time Temp Pulse Resp B/P (MAP) Pulse Ox O2 Delivery O2 Flow Rate FiO2 10/30/17 09:26 80 10/30/17 08:50 91 Simple Mask 6.00 10/30/17 08:39 Simple Mask 6.00 100 10/30/17 08:38 96.7 91 18 131/73 (92) 91 10/30/17 06:00 94 10/30/17 05:00 92 10/30/17 04:00 94 10/30/17 03:40 97.8 90 18 128/75 (92) 94 10/30/17 02:40 94 Simple Mask 6.00 10/30/17 02:00 91 10/30/17 01:00 92 10/30/17 00:00 94 10/29/17 23:15 97.6 91 18 144/64 (90) 94 10/29/17 23:00 94 10/29/17 21:00 90 10/29/17 20:00 92 10/29/17 19:15 96 Simple Mask 6.00 10/29/17 19:15 97.6 92 18 136/76 (96) 96 10/29/17 19:00 80 10/29/17 17:04 80 10/29/17 16:01 92 Simple Mask 6.00 10/29/17 16:00 82 10/29/17 15:03 97.6 83 18 140/70 (93) 92 10/29/17 15:00 83 10/29/17 14:00 86 10/29/17 13:00 88 10/29/17 12:51 91 Simple Mask 6.00 10/29/17 12:46 97.5 89 18 140/70 (93) 92 10/29/17 12:45 88 Simple Mask 5.00 10/29/17 12:00 88 10/29/17 11:00 91 -: 10/30/17 0618 10/30/17 0618 Physical Exam General Appearance: No Acute Distress, Comfortable Eyes Eye Exam: Pupils Equal Throat Throat Exam: Oral Mucosa [place] & Moist Neck Neck Exam: Neck Supple Pulmonary Resp Exam: Crackles, Rhonchi, Sputum, Decreased Bases, Diminished Breath Sounds Cardiology CV Exam: Regular, Normal Sinus Rhythm Gastrointestinal/Abdomen GI Exam: Soft, Non-Tender, Bowel Sounds Present, Non-Distended Extremeties Extremities Exam: Moderate Edema, Pitting Edema, Dependent Edema Extremeties Remarks Rt. lower leg with the dressing. Neurologic Neuro Exam: Alert, Awake, Oriented Assessment/Plan Assessment Summary: CONOR/Acute Renal Failure, Fluid/Volume Overload, Hypertension, CKD Stage IV Electrolyte Assessment: Hyperkalemia Problem List: (1) CAD (coronary artery disease) ICD Codes: I25.10 - Atherosclerotic heart disease of [place] coronary artery without angina pectoris Status: Chronic (2) COPD (chronic obstructive pulmonary disease) ICD Codes: J44.9 - Chronic obstructive pulmonary disease, unspecified Status: Chronic (3) Anemia ICD Codes: D64.9 - Anemia, unspecified Status: Chronic (4) Dog bite of multiple sites of right lower extremity ICD Codes: S81.851A - Open bite, right lower leg, initial encounter; W54.0XXA - Bitten by dog, initial encounter Status: Chronic (5) Respiratory failure ICD Codes: J96.90 - Respiratory failure, unspecified, unspecified whether with hypoxia or hypercapnia (6) Stage 4 chronic kidney disease ICD Codes: N18.4 - Chronic kidney disease, stage 4 (severe) (7) CONOR (acute kidney injury) ICD Codes: N17.9 - Acute kidney failure, unspecified Status: Acute Plan Patient has stage 4 chronic kidney disease. Also develop CONOR. Has generalized anasarca and resp. failure. On Lasix and Metolazone. Urine out put is better. Told to restrict oral fluid intake. Creatinine remain 2.4, K is now normal. Continue diuretics. Flavio Toro MD Oct 30, 2017 10:29
[2017-10-30] MEDS: AZITHROMYCIN INJ 500 MG in SODIUM CHLOR 0.9% 250 ML INJ 250 ML IV SCH (11:00)
[2017-10-30] MEDS ORDERED: INSULIN ASPART 1,000 UNITS/10 ML VIAL SQ ONE (12:15)
[2017-10-30] MEDS: ASPIRIN 81 MG CHEW TAB CHEW SCH (13:03)
--- NOTE | 2017-10-30 14:01 | HHI.PR ---
Subjective Remarks Remains on facemask however states they were unable to wean her. Patient states her breathing feels much improved. Feels her edema is improved as well. Blood sugar has been running high up to the 500s. Patient states she normally takes Levemir twice a day. Objective Vitals Vital Signs Date Time Temp Pulse Resp B/P (MAP) Pulse Ox O2 Delivery O2 Flow Rate FiO2 10/30/17 13:14 96.0 87 18 139/66 (90) 95 10/30/17 09:26 80 10/30/17 08:50 91 Simple Mask 6.00 10/30/17 08:39 Simple Mask 6.00 100 10/30/17 08:38 96.7 91 18 131/73 (92) 91 10/30/17 06:00 94 10/30/17 05:00 92 10/30/17 04:00 94 10/30/17 03:40 97.8 90 18 128/75 (92) 94 10/30/17 02:40 94 Simple Mask 6.00 10/30/17 02:00 91 10/30/17 01:00 92 10/30/17 00:00 94 10/29/17 23:15 97.6 91 18 144/64 (90) 94 10/29/17 23:00 94 10/29/17 21:00 90 10/29/17 20:00 92 10/29/17 19:15 96 Simple Mask 6.00 10/29/17 19:15 97.6 92 18 136/76 (96) 96 10/29/17 19:00 80 10/29/17 17:04 80 10/29/17 16:01 92 Simple Mask 6.00 10/29/17 16:00 82 10/29/17 15:03 97.6 83 18 140/70 (93) 92 10/29/17 15:00 83 10/29/17 14:00 86 I/O 10/29/17 10/29/17 10/29/17 10/30/17 10/30/17 10/30/17 07:00 15:00 23:00 07:00 15:00 23:00 Intake Total 480 ml 250 ml 100 ml 480 ml Output Total 550 ml 650 ml 1200 ml Balance -70 ml 250 ml -550 ml -720 ml Intake Oral 480 ml 480 ml IV Total 250 ml 100 ml Output Urine Total 550 ml 650 ml 1200 ml # Bowel Movements 1 Result Diagram: 10/30/1761710/30/17617 Objective Remarks GENERAL: Well-nourished, well-developed patient. SKIN: Warm and dry. HEAD: Normocephalic. EYES: No scleral icterus. No injection or drainage. NECK: Supple, trachea midline. No JVD or lymphadenopathy. CARDIOVASCULAR: Regular rate and rhythm without murmurs, gallops, or rubs. RESPIRATORY: Breath sounds equal bilaterally. No accessory muscle use. GASTROINTESTINAL: Abdomen soft, non-tender, nondistended. EXTREMITIES: Trace pedal edema right lower extremity, 1+ edema of the bilateral thighs. She has a shallow wound on her right lower extremity which is well healing. NEUROLOGICAL: Awake, alert, and oriented x 3. Non-focal. A/P Assessment and Plan 66-year-old female with a history of diastolic CHF, bilateral pleural effusions with last thoracentesis on 10/04/17, diabetes mellitus, coronary artery disease, chronic kidney disease, COPD, hypertension, GERD, bone marrow suppression and chronic right lower extremity ulcer secondary to a dog bite presents to the emergency department with acutely worsening shortness of breath. 1. Respiratory failure/COPD exacerbation/CHF exacerbation/bilateral pleural effusions Chest x-ray significant for bibasilar areas of consolidation or atelectasis with suspected bilateral effusions left greater than right. pulm following. requiring simple mask On IV cefepime/azithro empirically BNP 504 -LVEF 55% on [facility] 06/2017 on IV steroids and IV Lasix. Nephrology following and added metolazone to help w diuresis. VQ scan indeterminate Wean O2 as tolerated Cardiology following, pt is s/p cardiac cath 06/2017 with WENDI to first diagonal , cannot hold effient for thoracentesis. d/c thoracentesis orders. Goals are for aggressive diuresis. chest x-ray 10/29- stable by basilar opacities representing pleural effusions with associated volume loss and/or consolidation 2. Anemia H&H 7.6/23.5, improved to 9 status post 1 unit packed red blood cells 3. Hyperkalemia Potassium 5.5--> 5.3 No EKG changes repeat BMP a.m. 5. 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 Insulin-dependent diabetes mellitus - uncontrolled Continue home Levemir - will increase to 10 units subcutaneous every 12 hours, taper steroids SSI 7. CKD Nephrology ff 7. Hypertension Continue all medications FEN Heart healthy diet/ ADA Fluid restriction Electrolytes: As above heparin 5000 units SQ q 12 h for DVT px Uzma Prabhakar MD Oct 30, 2017 14:01
[2017-10-30] MEDS: CEFEPIME INJ 2,000 MG in SODIUM CHLORIDE 0.9% INJ 100 ML IV SCH (14:08)
--- NOTE | 2017-10-30 15:31 | HHI.PR ---
Subjective Remarks alert on o2 no acute distress Objective Vital Signs Date Time Temp Pulse Resp B/P (MAP) Pulse Ox O2 Delivery O2 Flow Rate FiO2 10/30/17 14:13 81 10/30/17 13:14 96.0 87 18 139/66 (90) 95 10/30/17 09:26 80 10/30/17 08:50 91 Simple Mask 6.00 10/30/17 08:39 Simple Mask 6.00 100 10/30/17 08:38 96.7 91 18 131/73 (92) 91 10/30/17 06:00 94 10/30/17 05:00 92 10/30/17 04:00 94 10/30/17 03:40 97.8 90 18 128/75 (92) 94 10/30/17 02:40 94 Simple Mask 6.00 10/30/17 02:00 91 10/30/17 01:00 92 10/30/17 00:00 94 10/29/17 23:15 97.6 91 18 144/64 (90) 94 10/29/17 23:00 94 10/29/17 21:00 90 10/29/17 20:00 92 10/29/17 19:15 96 Simple Mask 6.00 10/29/17 19:15 97.6 92 18 136/76 (96) 96 10/29/17 19:00 80 10/29/17 17:04 80 10/29/17 16:01 92 Simple Mask 6.00 10/29/17 16:00 82 I/O 10/29/17 10/29/17 10/29/17 10/30/17 10/30/17 10/30/17 07:00 15:00 23:00 07:00 15:00 23:00 Intake Total 480 ml 250 ml 100 ml 480 ml Output Total 550 ml 650 ml 1200 ml Balance -70 ml 250 ml -550 ml -720 ml Intake Oral 480 ml 480 ml IV Total 250 ml 100 ml Output Urine Total 550 ml 650 ml 1200 ml # Bowel Movements 1 Result Diagram: 10/30/1761710/30/17617 Objective Remarks GENERAL: SKIN: Warm and dry. HEAD: Atraumatic. Normocephalic. EYES: Pupils equal and round. No scleral icterus. No injection or drainage. ENT: No nasal bleeding or discharge. Mucous membranes pink and moist. NECK: Trachea midline. No JVD. CARDIOVASCULAR: Regular rate and rhythm. RESPIRATORY: decrease breath sounds at basis GASTROINTESTINAL: Abdomen soft, non-tender, nondistended. Hepatic and splenic margins not palpable. MUSCULOSKELETAL: Extremities without clubbing, cyanosis, or edema. No obvious deformities. NEUROLOGICAL: Awake and alert. No obvious cranial nerve deficits. Motor grossly within normal limits. Five out of 5 muscle strength in the arms and legs. Normal speech. PSYCHIATRIC: Appropriate mood and affect; insight and judgment normal. Assessment and Plan Assessment and Plan Respiratory failure COPD CHF Pleural effusion PLAN O2 as needed bronchodilators therapy for CHF Increase activity Sylvia Ward MD Oct 30, 2017 15:31
[2017-10-30] MEDS: predniSONE 20 MG TAB PO SCH (23:08)
[2017-10-30] MEDS ORDERED: INSULIN DETEMIR 100 UNITS/ML VIAL SQ SCH (23:18)
[2017-10-30] MEDS ORDERED: INSULIN HUMAN REGULAR 1,000 UNITS/10 ML VIAL IV PUSH ONE (23:30)
[2017-10-31] VITALS (27 sets, daily range): BP systolic 138–155; BP diastolic 71–79; PULSE 65–107; RESP 18–20; TEMP 97.6–98.1; O2SAT 94–99
[2017-10-31] MEDS: HEPARIN SODIUM - SQ 10,000 UNITS/ML VIAL SQ SCH ×3 (02:16→23:55)
[2017-10-31] MEDS: RESP: ALBUTEROL 2.5 MG/IPRATROPIUM 0.5 MG NEB (SCH) INH ×2 (03:44→10:39)
[2017-10-31] MEDS ORDERED: INSULIN ASPART 1,000 UNITS/10 ML VIAL SQ ONE (04:15)
[2017-10-31] MEDS: ISOSORBIDE MONONITRATE 60 MG TAB PO SCH (06:37)
[2017-10-31] MEDS: SODIUM CHLORIDE 0.9% FLUSH 10 ML FLUSH IV FLUSH SCH ×2 (09:59→20:55)
[2017-10-31] MEDS: NIFEdipine 60 MG SUSTAINED RELEASE TAB PO SCH ×2 (09:59→20:55)
[2017-10-31] MEDS: METOLAZONE 2.5 MG TAB PO SCH (09:59)
[2017-10-31] MEDS: predniSONE 20 MG TAB PO SCH ×2 (09:59→20:55)
[2017-10-31] MEDS: ASPIRIN 81 MG CHEW TAB CHEW SCH (09:59)
[2017-10-31] MEDS: PRASUGREL 10 MG TAB PO SCH (10:00)
[2017-10-31] MEDS: FUROSEMIDE 40 MG/4 ML VIAL IV PUSH SCH ×2 (10:00→18:42)
[2017-10-31] MEDS: METOPROLOL TARTRATE 50 MG TAB PO SCH ×2 (10:00→20:55)
[2017-10-31] MEDS: INSULIN ASPART SUPPLEMENTAL SCALE SQ SCH ×4 (10:01→21:00)
--- NOTE | 2017-10-31 12:35 | HHI.NPPN ---
Subjective General Problems: Anemia, Edema, Hypertension Renal Failure: Chronic, Acute, Stage IV History of Present Illness 66-year-old female known to me from before with past medical history of ischemic heart disease, chronic obstructive pulmonary disease, hypertension, chronic kidney disease with diastolic dysfunction, congestive heart failure, history of edema in the legs came to the hospital with complaint of worsening shortness of breath and increased swelling of the legs. I was called to see the patient because of elevated BUN and creatinine. Additional Remarks Patient is alert, breathing is better, with VM, not in distress. Review of Systems General Constitutional: Fatigue Respiratory Lungs: SOB, Cough, Wheeze Cardiovascular Cardiac: Edema, KAMARA Objective Data Data Vital Signs Date Time Temp Pulse Resp B/P (MAP) Pulse Ox O2 Delivery O2 Flow Rate FiO2 10/31/17 11:45 95 Venturi Mask 40 10/31/17 10:42 99 Simple Mask 6.00 10/31/17 06:00 90 10/31/17 05:00 71 10/31/17 04:00 70 10/31/17 03:00 98.1 69 20 150/73 (98) 94 10/31/17 03:00 65 10/31/17 02:00 86 10/31/17 01:00 88 10/31/17 00:00 107 10/30/17 23:00 97.7 93 20 142/73 (96) 97 10/30/17 23:00 88 10/30/17 23:00 97 Simple Mask 6.00 10/30/17 22:00 90 10/30/17 21:35 96 Simple Mask 6.00 10/30/17 21:00 88 10/30/17 18:46 88 18 127/69 (88) 93 10/30/17 15:42 97.0 85 18 123/64 (83) 10/30/17 14:13 81 10/30/17 13:14 96.0 87 18 139/66 (90) 95 -: 10/30/17 0618 10/30/17 0618 Physical Exam General Appearance: No Acute Distress, Comfortable Eyes Eye Exam: Pupils Equal Throat Throat Exam: Oral Mucosa [place] & Moist Neck Neck Exam: Neck Supple Pulmonary Resp Exam: Crackles, Rhonchi, Sputum, Decreased Bases, Diminished Breath Sounds Cardiology CV Exam: Regular, Normal Sinus Rhythm Gastrointestinal/Abdomen GI Exam: Soft, Non-Tender, Bowel Sounds Present, Non-Distended Extremeties Extremities Exam: Moderate Edema, Pitting Edema, Dependent Edema Extremeties Remarks Rt. lower leg with the dressing. Neurologic Neuro Exam: Alert, Awake, Oriented Assessment/Plan Assessment Summary: CONOR/Acute Renal Failure, Fluid/Volume Overload, Hypertension, CKD Stage IV Electrolyte Assessment: Hyperkalemia Problem List: (1) CAD (coronary artery disease) ICD Codes: I25.10 - Atherosclerotic heart disease of [place] coronary artery without angina pectoris Status: Chronic (2) COPD (chronic obstructive pulmonary disease) ICD Codes: J44.9 - Chronic obstructive pulmonary disease, unspecified Status: Chronic (3) Anemia ICD Codes: D64.9 - Anemia, unspecified Status: Chronic (4) Dog bite of multiple sites of right lower extremity ICD Codes: S81.851A - Open bite, right lower leg, initial encounter; W54.0XXA - Bitten by dog, initial encounter Status: Chronic (5) Respiratory failure ICD Codes: J96.90 - Respiratory failure, unspecified, unspecified whether with hypoxia or hypercapnia (6) Stage 4 chronic kidney disease ICD Codes: N18.4 - Chronic kidney disease, stage 4 (severe) (7) CONOR (acute kidney injury) ICD Codes: N17.9 - Acute kidney failure, unspecified Status: Acute Plan Patient has stage 4 chronic kidney disease. Also develop CONOR. Has generalized anasarca and resp. failure. On Lasix and Metolazone. Urine out put is better. Told to restrict oral fluid intake. No new BMP. Continue diuretics and follow BMP. Flavio Toro MD Oct 31, 2017 12:35
[2017-10-31] MEDS: AZITHROMYCIN INJ 500 MG in SODIUM CHLOR 0.9% 250 ML INJ 250 ML IV SCH (12:54)
[2017-10-31] MEDS: CEFEPIME INJ 2,000 MG in SODIUM CHLORIDE 0.9% INJ 100 ML IV SCH (13:01)
[2017-10-31] MEDS: INSULIN DETEMIR 100 UNITS/ML VIAL SQ SCH ×2 (13:02→23:55)
--- NOTE | 2017-10-31 13:25 | HHI.PR ---
Subjective Remarks alert on o2 no acute distress Objective Vital Signs Date Time Temp Pulse Resp B/P (MAP) Pulse Ox O2 Delivery O2 Flow Rate FiO2 10/31/17 11:45 95 Venturi Mask 40 10/31/17 10:42 99 Simple Mask 6.00 10/31/17 06:00 90 10/31/17 05:00 71 10/31/17 04:00 70 10/31/17 03:00 98.1 69 20 150/73 (98) 94 10/31/17 03:00 65 10/31/17 02:00 86 10/31/17 01:00 88 10/31/17 00:00 107 10/30/17 23:00 97.7 93 20 142/73 (96) 97 10/30/17 23:00 88 10/30/17 23:00 97 Simple Mask 6.00 10/30/17 22:00 90 10/30/17 21:35 96 Simple Mask 6.00 10/30/17 21:00 88 10/30/17 18:46 88 18 127/69 (88) 93 10/30/17 15:42 97.0 85 18 123/64 (83) 10/30/17 14:13 81 I/O 10/30/17 10/30/17 10/30/17 10/31/17 10/31/17 10/31/17 07:00 15:00 23:00 07:00 15:00 23:00 Intake Total 480 ml 940 ml 740 ml 660 ml Output Total 1200 ml 1000 ml 100 ml 1000 ml Balance -720 ml -60 ml 640 ml -340 ml Intake Oral 480 ml 940 ml 740 ml 660 ml Output Urine Total 1200 ml 1000 ml 100 ml 1000 ml # Bowel Movements 2 Result Diagram: 10/30/1718 10/30/1718 Objective Remarks GENERAL: SKIN: Warm and dry. HEAD: Atraumatic. Normocephalic. EYES: Pupils equal and round. No scleral icterus. No injection or drainage. ENT: No nasal bleeding or discharge. Mucous membranes pink and moist. NECK: Trachea midline. No JVD. CARDIOVASCULAR: Regular rate and rhythm. RESPIRATORY: decrease breath sounds at basis GASTROINTESTINAL: Abdomen soft, non-tender, nondistended. Hepatic and splenic margins not palpable. MUSCULOSKELETAL: Extremities without clubbing, cyanosis, or edema. No obvious deformities. NEUROLOGICAL: Awake and alert. No obvious cranial nerve deficits. Motor grossly within normal limits. Five out of 5 muscle strength in the arms and legs. Normal speech. PSYCHIATRIC: Appropriate mood and affect; insight and judgment normal. Assessment and Plan Assessment and Plan Respiratory failure COPD CHF Pleural effusion PLAN O2 as needed bronchodilators therapy for CHF Increase activity FU Sylvia Marquez MD Oct 31, 2017 13:25
--- NOTE | 2017-10-31 15:16 | HHI.PR ---
Subjective Remarks Patient states she feels better. Blood sugars improved. Breathing improved. Patient on Ventimask 40% FiO2. Objective Vitals Vital Signs Date Time Temp Pulse Resp B/P (MAP) Pulse Ox O2 Delivery O2 Flow Rate FiO2 10/31/17 11:45 95 Venturi Mask 40 10/31/17 10:42 99 Simple Mask 6.00 10/31/17 06:00 90 10/31/17 05:00 71 10/31/17 04:00 70 10/31/17 03:00 98.1 69 20 150/73 (98) 94 10/31/17 03:00 65 10/31/17 02:00 86 10/31/17 01:00 88 10/31/17 00:00 107 10/30/17 23:00 97.7 93 20 142/73 (96) 97 10/30/17 23:00 88 10/30/17 23:00 97 Simple Mask 6.00 10/30/17 22:00 90 10/30/17 21:35 96 Simple Mask 6.00 10/30/17 21:00 88 10/30/17 18:46 88 18 127/69 (88) 93 10/30/17 15:42 97.0 85 18 123/64 (83) I/O 10/30/17 10/30/17 10/30/17 10/31/17 10/31/17 10/31/17 07:00 15:00 23:00 07:00 15:00 23:00 Intake Total 480 ml 940 ml 740 ml 660 ml Output Total 1200 ml 1000 ml 100 ml 1000 ml Balance -720 ml -60 ml 640 ml -340 ml Intake Oral 480 ml 940 ml 740 ml 660 ml Output Urine Total 1200 ml 1000 ml 100 ml 1000 ml # Bowel Movements 2 Result Diagram: 10/30/1718 10/30/1718 Objective Remarks GENERAL: Well-nourished, well-developed patient. SKIN: Warm and dry. HEAD: Normocephalic. EYES: No scleral icterus. No injection or drainage. NECK: Supple, trachea midline. No JVD or lymphadenopathy. CARDIOVASCULAR: Regular rate and rhythm without murmurs, gallops, or rubs. RESPIRATORY: Breath sounds equal bilaterally. No accessory muscle use on Ventimask. GASTROINTESTINAL: Abdomen soft, non-tender, nondistended. EXTREMITIES: Trace pedal edema right lower extremity, 1+ edema of the bilateral thighs. She has a shallow wound on her right lower extremity which is well healing. NEUROLOGICAL: Awake, alert, and oriented x 3. Non-focal. A/P Assessment and Plan 66-year-old female with a history of diastolic CHF, bilateral pleural effusions with last thoracentesis on 10/04/17, diabetes mellitus, coronary artery disease, chronic kidney disease, COPD, hypertension, GERD, bone marrow suppression and chronic right lower extremity ulcer secondary to a dog bite presents to the emergency department with acutely worsening shortness of breath. 1. Respiratory failure/COPD exacerbation/CHF exacerbation/bilateral pleural effusions Chest x-ray significant for bibasilar areas of consolidation or atelectasis with suspected bilateral effusions left greater than right. pulm following. requiring simple mask On IV cefepime/azithro empirically BNP 504 -LVEF 55% on [facility] 06/2017 on IV steroids and IV Lasix. Nephrology following and added metolazone to help w diuresis. VQ scan indeterminate Wean O2 as tolerated -I ordered Ventimask today Cardiology following, pt is s/p cardiac cath 06/2017 with WENDI to first diagonal , cannot hold effient for thoracentesis. d/c thoracentesis orders. Goals are for aggressive diuresis. chest x-ray 10/29- stable by basilar opacities representing pleural effusions with associated volume loss and/or consolidation - repeat chest x-ray today 2. Anemia H&H 7.6/23.5, improved to 9 status post 1 unit packed red blood cells 3. Hyperkalemia Potassium 5.5--> 5.3 No EKG changes repeat BMP a.m. 5. 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 Insulin-dependent diabetes mellitus - uncontrolled Continue home Levemir - will increase to 15 units subcutaneous every 12 hours, taper steroids SSI 7. CKD Nephrology ff Creatinine slightly increased with the diuresis will repeat BMP in the morning 7. Hypertension Continue all medications FEN Heart healthy diet/ ADA Fluid restriction Electrolytes: As above heparin 5000 units SQ q 12 h for DVT px Uzma Prabhakar MD Oct 31, 2017 15:16
--- NOTE | 2017-10-31 16:14 | RADRPT ---
EXAM DATE/TIME: 10/31/2017 15:32 [place] COMPARISON: CHEST SINGLE AP, October 29, 2017, 5:22. INDICATIONS : Shortness of breath. MEDICAL HISTORY : Chronic obstructive pulmonary disease. Congestive heart failure. SURGICAL HISTORY : None. ENCOUNTER: Subsequent ACUITY: 4 - 6 days PAIN SCORE: 0/10 LOCATION: Bilateral chest FINDINGS: Moderate to large left pleural effusion and small right pleural effusion with associated airspace dis ease in the lower lung zones. Cardi cell contours are stable. Remainder of exam is unchanged. CONCLUSION: 1. Moderate to large left-sided pleural effusion with associated lower lobe airspace disease, presuma nicolas compressive atelectasis. 2. Small right pleural effusion. Eric Pham MD on October 31, 2017 at 16:08 Board Certified Radiologist. This report was verified electronically.
[2017-10-31 16:25] LABS: BICARBONATE 23.8 MEQ/L (21.0-32.0); POTASSIUM 3.7 MEQ/L (3.5-5.1)
[2017-11-01] VITALS (21 sets, daily range): BP systolic 106–158; BP diastolic 58–84; PULSE 85–97; RESP 16–18; TEMP 97.6–98.2; O2SAT 89–99
[2017-11-01] MEDS: ISOSORBIDE MONONITRATE 60 MG TAB PO SCH (06:15)
[2017-11-01 07:03] LABS: POTASSIUM 3.8 MEQ/L (3.5-5.1)
[2017-11-01] MEDS: INSULIN ASPART SUPPLEMENTAL SCALE SQ SCH ×4 (08:00→21:16)
[2017-11-01] MEDS: METOPROLOL TARTRATE 50 MG TAB PO SCH ×2 (09:12→20:29)
[2017-11-01] MEDS: NIFEdipine 60 MG SUSTAINED RELEASE TAB PO SCH ×2 (09:12→20:29)
[2017-11-01] MEDS: METOLAZONE 2.5 MG TAB PO SCH (09:13)
[2017-11-01] MEDS: predniSONE 20 MG TAB PO SCH ×2 (09:13→20:28)
[2017-11-01] MEDS: PRASUGREL 10 MG TAB PO SCH (09:13)
[2017-11-01] MEDS: SODIUM CHLORIDE 0.9% FLUSH 10 ML FLUSH IV FLUSH SCH ×2 (09:14→20:28)
[2017-11-01] MEDS: FUROSEMIDE 40 MG/4 ML VIAL IV PUSH SCH ×2 (09:14→17:35)
[2017-11-01] MEDS: ASPIRIN 81 MG CHEW TAB CHEW SCH (09:14)
[2017-11-01] MEDS: AZITHROMYCIN INJ 500 MG in SODIUM CHLOR 0.9% 250 ML INJ 250 ML IV SCH (10:40)
--- NOTE | 2017-11-01 10:43 | HHI.FPPN ---
Subjective Remarks WEAK LETHARGIC D/W DR DELAROSA D/W RN Objective Vitals Vital Signs Date Time Temp Pulse Resp B/P (MAP) Pulse Ox O2 Delivery O2 Flow Rate FiO2 11/01/17 07:32 99 Nasal Cannula 2.00 11/01/17 06:31 87 11/01/17 06:16 99 Nasal Cannula 2.00 11/01/17 05:00 90 11/01/17 05:00 Nasal Cannula 3.00 11/01/17 04:23 97 Nasal Cannula 3.00 11/01/17 04:00 90 11/01/17 03:00 97.6 91 18 156/84 (108) 95 11/01/17 03:00 90 11/01/17 02:00 90 11/01/17 01:00 90 11/01/17 00:00 92 10/31/17 23:00 92 18 155/79 (104) 99 10/31/17 23:00 91 10/31/17 22:00 90 10/31/17 21:00 90 10/31/17 20:56 97.6 91 18 151/77 (101) 96 10/31/17 20:00 90 10/31/17 20:00 97 Venturi Mask 6.00 40 10/31/17 19:00 88 10/31/17 18:00 90 10/31/17 17:00 89 10/31/17 16:00 97.9 20 138/71 (93) 96 10/31/17 16:00 88 10/31/17 16:00 94 10/31/17 15:00 95 10/31/17 15:00 92 10/31/17 14:00 90 10/31/17 13:00 94 10/31/17 12:00 90 10/31/17 12:00 97.7 20 141/73 (95) 94 10/31/17 11:45 95 Venturi Mask 40 10/31/17 11:00 86 10/31/17 11:00 96 Venturi Mask 40 10/31/17 10:42 99 Simple Mask 6.00 I/O 10/31/17 10/31/17 10/31/17 11/01/17 11/01/17 11/01/17 07:00 15:00 23:00 07:00 15:00 23:00 Intake Total 660 ml 830 ml 280 ml Output Total 1000 ml 800 ml 950 ml Balance -340 ml 30 ml -670 ml Intake Oral 660 ml 480 ml 280 ml IV Total 350 ml Output Urine Total 1000 ml 800 ml 950 ml # Bowel Movements 2 2 Result Diagram: 10/30/17 0618 11/01/17 0528 Imaging Last 72 hours Impressions Chest X-Ray 10/31/17 0000 Signed Impressions: Service Date/Time: Tuesday, October 31, 2017 15:32 - CONCLUSION: 1. Moderate to large left-sided pleural effusion with associated lower lobe airspace disease, presumably compressive atelectasis. 2. Small right pleural effusion. Eric Pham MD Objective Remarks GENERAL: SKIN: Warm and dry. R LEG dog bite HEAD: Atraumatic. Normocephalic. EYES: Pupils equal and round. No scleral icterus. No injection or drainage. ENT: No nasal bleeding or discharge. Mucous membranes pink and moist. NECK: Trachea midline. No JVD. CARDIOVASCULAR: Regular rate and rhythm. RESPIRATORY: No accessory muscle use. Clear to auscultation. Breath sounds equal bilaterally. GASTROINTESTINAL: Abdomen soft, non-tender, nondistended. Hepatic and splenic margins not palpable. MUSCULOSKELETAL: Extremities without clubbing, cyanosis, or edema. No obvious deformities. NEUROLOGICAL: Awake and alert. No obvious cranial nerve deficits. Motor grossly within normal limits. 2 out of 5 muscle strength in the arms and legs. Normal speech. PSYCHIATRIC: Appropriate mood and affect; insight and judgment normal. Medications and IVs Current Medications Medications (Trade) Dose Ordered Sig/Marie Route Start Time Stop Time Status Last Admin (Aspirin Chew) 81 mg DAILY CHEW 10/27/17 09:00 11/01/17 09:14 (Bumetanide) 2 mg BID PO 10/27/17 09:00 Future Hold (Imdur) 60 mg DAILY@0700 PO 10/27/17 07:00 11/01/17 06:15 (Lopressor) 50 mg BID PO 10/27/17 09:00 11/01/17 09:12 (Procardia Xl) 60 mg Q12HR PO 10/27/17 09:00 11/01/17 09:12 (Effient) 10 mg DAILY PO 10/27/17 09:00 11/01/17 09:13 (NS Flush) 2 ml BID IV FLUSH 10/27/17 09:00 11/01/17 09:14 (NS Flush) 2 ml UNSCH PRN IV FLUSH 10/27/17 04:30 (Albuterol Neb) 2.5 mg Q2HR NEB PRN INH 10/27/17 04:30 (D50w (Vial) Inj) 50 ml UNSCH PRN IV PUSH 10/27/17 04:45 (Glucagon Inj) 1 mg UNSCH PRN OTHER 10/27/17 04:45 (Lasix Inj) 40 mg BID@,18 IV PUSH 10/27/17 09:00 11/01/17 09:14 Cefepime HCl 2000 mg/Sodium Chloride 100 ml @ 200 mls/hr Q24H IV 10/27/17 12:00 10/31/17 13:01 Azithromycin 500 mg/Sodium Chloride 250 ml @ 250 mls/hr Q24H IV 10/27/17 11:00 10/31/17 12:54 (Zaroxolyn) 2.5 mg DAILY PO 10/28/17 09:00 11/01/17 09:13 (Heparin Inj) 5,000 units Q12H SQ 10/30/17 01:00 10/31/17 23:55 (Deltasone) 20 mg BID PO 10/30/17 21:00 11/01/17 09:13 (NovoLOG SUPPLEMENTAL SCALE) 1 ACHS SLIDING SCALE SQ 10/31/17 08:00 10/31/17 21:00 (Levemir Inj) 15 units Q12H SQ 10/31/17 12:00 10/31/17 23:55 A/P Assessment and Plan 66-year-old female with a history of diastolic CHF, bilateral pleural effusions with last thoracentesis on 10/04/17, diabetes mellitus, coronary artery disease, chronic kidney disease, COPD, hypertension, GERD, bone marrow suppression and chronic right lower extremity ulcer secondary to a dog bite presents to the emergency department with acutely worsening shortness of breath. 1. Respiratory failure/COPD exacerbation/CHF exacerbation/bilateral pleural effusions Chest x-ray significant for bibasilar areas of consolidation or atelectasis with suspected bilateral effusions left greater than right. pulm following. requiring simple mask On IV cefepime/azithro empirically BNP 504 -LVEF 55% on [facility] 06/2017 on IV steroids and IV Lasix. Nephrology following and added metolazone to help w diuresis. VQ scan indeterminate Wean O2 as tolerated Cardiology following, pt is s/p cardiac cath 06/2017 with WENDI to first diagonal , cannot hold effient for thoracentesis. d/c thoracentesis orders. Goals are for aggressive diuresis. chest x-ray 10/29- stable by basilar opacities representing pleural effusions with associated volume loss and/or consolidation 2. Anemia H&H 7.6/23.5, improved to 9 status post 1 unit packed red blood cells 3. Hyperkalemia Potassium 5.5--> 5.3 No EKG changes repeat BMP a.m. 5. 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 Insulin-dependent diabetes mellitus - uncontrolled Continue home Levemir 15 units subcutaneous every 12 hours, taper steroids SSI 7. CONOR WITH CKD 4 Nephrology ff repeat BMP in the morning 7. Hypertension Continue all medications FEN Heart healthy diet/ ADA Fluid restriction Electrolytes: As above heparin 5000 units SQ q 12 h for DVT px Timo Mobley MD Nov 01, 2017 10:43
[2017-11-01] MEDS: CEFEPIME INJ 2,000 MG in SODIUM CHLORIDE 0.9% INJ 100 ML IV SCH (11:53)
[2017-11-01] MEDS: INSULIN DETEMIR 100 UNITS/ML VIAL SQ SCH (11:54)
[2017-11-01] MEDS: HEPARIN SODIUM - SQ 10,000 UNITS/ML VIAL SQ SCH (11:54)
--- NOTE | 2017-11-01 16:35 | PD.CARD.PN ---
Subjective Subjective Remarks No CP, less SOB, less edema Objective Medications Current Medications Medications (Trade) Dose Ordered Sig/Marie Route Start Time Stop Time Status Last Admin (Aspirin Chew) 81 mg DAILY CHEW 10/27/17 09:00 11/01/17 09:14 (Bumetanide) 2 mg BID PO 10/27/17 09:00 Future Hold (Imdur) 60 mg DAILY@0700 PO 10/27/17 07:00 11/01/17 06:15 (Lopressor) 50 mg BID PO 10/27/17 09:00 11/01/17 09:12 (Procardia Xl) 60 mg Q12HR PO 10/27/17 09:00 11/01/17 09:12 (Effient) 10 mg DAILY PO 10/27/17 09:00 11/01/17 09:13 (NS Flush) 2 ml BID IV FLUSH 10/27/17 09:00 11/01/17 09:14 (NS Flush) 2 ml UNSCH PRN IV FLUSH 10/27/17 04:30 (Albuterol Neb) 2.5 mg Q2HR NEB PRN INH 10/27/17 04:30 (D50w (Vial) Inj) 50 ml UNSCH PRN IV PUSH 10/27/17 04:45 (Glucagon Inj) 1 mg UNSCH PRN OTHER 10/27/17 04:45 (Lasix Inj) 40 mg BID@09,18 IV PUSH 10/27/17 09:00 11/01/17 09:14 Cefepime HCl 2000 mg/Sodium Chloride 100 ml @ 200 mls/hr Q24H IV 10/27/17 12:00 11/01/17 11:53 Azithromycin 500 mg/Sodium Chloride 250 ml @ 250 mls/hr Q24H IV 10/27/17 11:00 11/01/17 10:40 (Zaroxolyn) 2.5 mg DAILY PO 10/28/17 09:00 11/01/17 09:13 (Heparin Inj) 5,000 units Q12H SQ 10/30/17 01:00 11/01/17 11:54 (Deltasone) 20 mg BID PO 10/30/17 21:00 11/01/17 09:13 (NovoLOG SUPPLEMENTAL SCALE) 1 ACHS SLIDING SCALE SQ 10/31/17 08:00 11/01/17 11:54 (Levemir Inj) 15 units Q12H SQ 10/31/17 12:00 11/01/17 11:54 Vital Signs / I&O Vital Signs Date Time Temp Pulse Resp B/P (MAP) Pulse Ox O2 Delivery O2 Flow Rate FiO2 11/01/17 16:00 86 11/01/17 15:00 86 11/01/17 15:00 98.2 97 18 106/58 (74) 93 11/01/17 13:00 87 11/01/17 12:00 97.9 88 16 158/83 (108) 96 11/01/17 12:00 87 11/01/17 11:00 87 11/01/17 08:00 96 Nasal Cannula 3.00 11/01/17 07:32 99 Nasal Cannula 2.00 11/01/17 07:00 98.0 86 18 130/71 (90) 96 11/01/17 07:00 85 11/01/17 06:31 87 11/01/17 06:16 99 Nasal Cannula 2.00 11/01/17 05:00 90 11/01/17 05:00 Nasal Cannula 3.00 11/01/17 04:23 97 Nasal Cannula 3.00 11/01/17 04:00 90 11/01/17 03:00 97.6 91 18 156/84 (108) 95 11/01/17 03:00 90 11/01/17 02:00 90 11/01/17 01:00 90 11/01/17 00:00 92 10/31/17 23:00 92 18 155/79 (104) 99 10/31/17 23:00 91 10/31/17 22:00 90 10/31/17 21:00 90 10/31/17 20:56 97.6 91 18 151/77 (101) 96 10/31/17 20:00 90 10/31/17 20:00 97 Venturi Mask 6.00 40 10/31/17 19:00 88 10/31/17 18:00 90 10/31/17 17:00 89 I/O 10/31/17 10/31/17 10/31/17 11/01/17 11/01/17 11/01/17 07:00 15:00 23:00 07:00 15:00 23:00 Intake Total 660 ml 830 ml 280 ml Output Total 1000 ml 800 ml 950 ml Balance -340 ml 30 ml -670 ml Intake Oral 660 ml 480 ml 280 ml IV Total 350 ml Output Urine Total 1000 ml 800 ml 950 ml # Bowel Movements 2 2 Physical Exam GENERAL: In NAD SKIN: Warm and dry. HEAD: Normocephalic. EYES: No scleral icterus. No injection or drainage. NECK: Supple, trachea midline. No JVD or lymphadenopathy. CARDIOVASCULAR: Regular rate and rhythm without murmurs, gallops, or rubs. RESPIRATORY: Decreased BS at bases. No accessory muscle use. GASTROINTESTINAL: Abdomen soft, non-tender, nondistended. MUSCULOSKELETAL: No cyanosis, mild LE edema. Laboratory Laboratory Tests Test 11/01/17 05:28 Blood Urea Nitrogen 78 MG/DL Creatinine 2.35 MG/DL Random Glucose 160 MG/DL Calcium Level 9.2 MG/DL Sodium Level 141 MEQ/L Potassium Level 3.8 MEQ/L Chloride Level 106 MEQ/L Carbon Dioxide Level 24.0 MEQ/L Anion Gap 11 MEQ/L Estimat Glomerular Filtration Rate 21 ML/MIN Assessment and Plan Problem List: (1) Pleural effusion ICD Codes: J90 - Pleural effusion, not elsewhere classified (2) CHF (congestive heart failure) ICD Codes: I50.9 - Heart failure, unspecified (3) CONOR (acute kidney injury) ICD Codes: N17.9 - Acute kidney failure, unspecified Status: Acute (4) CAD (coronary artery disease) ICD Codes: I25.10 - Atherosclerotic heart disease of [place] coronary artery without angina pectoris Status: Chronic Assessment and Plan Still with significant pleural effusions. Continue diuresis, closely monitoring renal fx. Thoracentesis cx due to the need to continue anticoagulation. Increase activity. Dunia Reddy MD Nov 01, 2017 16:35
--- NOTE | 2017-11-01 16:46 | HHI.PR ---
Subjective Remarks 66 YO WF with SOB,CHF,Pl eff,CAD Had PRBC Breathing much better On 2.5 LNC at BS Objective Vital Signs Vital Signs Date Time Temp Pulse Resp B/P (MAP) Pulse Ox O2 Delivery O2 Flow Rate FiO2 11/01/17 16:00 86 11/01/17 15:00 86 11/01/17 15:00 98.2 97 18 106/58 (74) 93 11/01/17 13:00 87 11/01/17 12:00 97.9 88 16 158/83 (108) 96 11/01/17 12:00 87 11/01/17 11:00 87 11/01/17 08:00 96 Nasal Cannula 3.00 11/01/17 07:32 99 Nasal Cannula 2.00 11/01/17 07:00 98.0 86 18 130/71 (90) 96 11/01/17 07:00 85 11/01/17 06:31 87 11/01/17 06:16 99 Nasal Cannula 2.00 11/01/17 05:00 90 11/01/17 05:00 Nasal Cannula 3.00 11/01/17 04:23 97 Nasal Cannula 3.00 11/01/17 04:00 90 11/01/17 03:00 97.6 91 18 156/84 (108) 95 11/01/17 03:00 90 11/01/17 02:00 90 11/01/17 01:00 90 11/01/17 00:00 92 10/31/17 23:00 92 18 155/79 (104) 99 10/31/17 23:00 91 10/31/17 22:00 90 10/31/17 21:00 90 10/31/17 20:56 97.6 91 18 151/77 (101) 96 10/31/17 20:00 90 10/31/17 20:00 97 Venturi Mask 6.00 40 10/31/17 19:00 88 10/31/17 18:00 90 10/31/17 17:00 89 I/O 10/31/17 10/31/17 10/31/17 11/01/17 11/01/17 11/01/17 07:00 15:00 23:00 07:00 15:00 23:00 Intake Total 660 ml 830 ml 280 ml Output Total 1000 ml 800 ml 950 ml Balance -340 ml 30 ml -670 ml Intake Oral 660 ml 480 ml 280 ml IV Total 350 ml Output Urine Total 1000 ml 800 ml 950 ml # Bowel Movements 2 2 Result Diagram: 10/30/1718 11/01/17 0528 Objective Remarks GENERAL: Obese WF mild sob SKIN: Warm and dry. HEAD: Normocephalic. EYES: No scleral icterus. No injection or drainage. NECK: Supple, trachea midline. No JVD or lymphadenopathy. CARDIOVASCULAR: Regular rate and rhythm without murmurs, gallops, or rubs. RESPIRATORY: Breath sounds equal bilaterally. No accessory muscle use. GASTROINTESTINAL: Abdomen soft, non-tender, nondistended. MUSCULOSKELETAL: No cyanosis, ++ edema. BACK: Nontender without obvious deformity. No CVA tenderness. A/P Assessment and Plan Dysnoea, improving Hypoxia CHF Pleural effusion COPD Obesity CAD, s/p WENDI PLAN: Diurease Aerosol nebs Supplement 02 Monitor renal functions DW pt and Would prefer to go to home when ready to dc Aaron Blankenship MD Nov 01, 2017 16:46
--- NOTE | 2017-11-01 17:19 | HHI.PR ---
Subjective Remarks alert on o2 no acute distress Objective Vital Signs Date Time Temp Pulse Resp B/P (MAP) Pulse Ox O2 Delivery O2 Flow Rate FiO2 11/01/17 16:00 86 11/01/17 15:00 86 11/01/17 15:00 98.2 97 18 106/58 (74) 93 11/01/17 13:00 87 11/01/17 12:00 97.9 88 16 158/83 (108) 96 11/01/17 12:00 87 11/01/17 11:00 87 11/01/17 08:00 96 Nasal Cannula 3.00 11/01/17 07:32 99 Nasal Cannula 2.00 11/01/17 07:00 98.0 86 18 130/71 (90) 96 11/01/17 07:00 85 11/01/17 06:31 87 11/01/17 06:16 99 Nasal Cannula 2.00 11/01/17 05:00 90 11/01/17 05:00 Nasal Cannula 3.00 11/01/17 04:23 97 Nasal Cannula 3.00 11/01/17 04:00 90 11/01/17 03:00 97.6 91 18 156/84 (108) 95 11/01/17 03:00 90 11/01/17 02:00 90 11/01/17 01:00 90 11/01/17 00:00 92 10/31/17 23:00 92 18 155/79 (104) 99 10/31/17 23:00 91 10/31/17 22:00 90 10/31/17 21:00 90 10/31/17 20:56 97.6 91 18 151/77 (101) 96 10/31/17 20:00 90 10/31/17 20:00 97 Venturi Mask 6.00 40 10/31/17 19:00 88 10/31/17 18:00 90 I/O 10/31/17 10/31/17 10/31/17 11/01/17 11/01/17 11/01/17 06:59 14:59 22:59 06:59 14:59 22:59 Intake Total 660 ml 830 ml 280 ml Output Total 1000 ml 800 ml 950 ml Balance -340 ml 30 ml -670 ml Intake Oral 660 ml 480 ml 280 ml IV Total 350 ml Output Urine Total 1000 ml 800 ml 950 ml # Bowel Movements 2 2 Result Diagram: 10/30/17 0618 11/01/17 0528 Objective Remarks GENERAL: SKIN: Warm and dry. HEAD: Atraumatic. Normocephalic. EYES: Pupils equal and round. No scleral icterus. No injection or drainage. ENT: No nasal bleeding or discharge. Mucous membranes pink and moist. NECK: Trachea midline. No JVD. CARDIOVASCULAR: Regular rate and rhythm. RESPIRATORY: decrease breath sounds at basis GASTROINTESTINAL: Abdomen soft, non-tender, nondistended. Hepatic and splenic margins not palpable. MUSCULOSKELETAL: Extremities without clubbing, cyanosis, or edema. No obvious deformities. NEUROLOGICAL: Awake and alert. No obvious cranial nerve deficits. Motor grossly within normal limits. Five out of 5 muscle strength in the arms and legs. Normal speech. PSYCHIATRIC: Appropriate mood and affect; insight and judgment normal. Assessment and Plan Assessment and Plan Respiratory failure COPD CHF Pleural effusion PLAN O2 as needed bronchodilators therapy for CHF Increase activity Sylvia Ward MD Nov 01, 2017 17:19
--- NOTE | 2017-11-01 19:33 | HHI.NPPN ---
Subjective General Problems: Anemia, Edema, Hypertension Renal Failure: Chronic, Acute, Stage IV History of Present Illness 66-year-old female known to me from before with past medical history of ischemic heart disease, chronic obstructive pulmonary disease, hypertension, chronic kidney disease with diastolic dysfunction, congestive heart failure, history of edema in the legs came to the hospital with complaint of worsening shortness of breath and increased swelling of the legs. I was called to see the patient because of elevated BUN and creatinine. Additional Remarks Patient is alert, breathing is better, seen in AM, with nasal cannula. Review of Systems General Constitutional: Fatigue Respiratory Lungs: SOB, Cough, Wheeze Cardiovascular Cardiac: Edema, KAMARA Objective Data Data 11/01/17 11/02/17 19:00 07:00 Intake Total 480 ml Balance 480 ml Intake Oral 480 ml Vital Signs Date Time Temp Pulse Resp B/P (MAP) Pulse Ox O2 Delivery O2 Flow Rate FiO2 11/01/17 18:00 87 11/01/17 17:43 93 Nasal Cannula 2.00 11/01/17 17:00 86 11/01/17 16:00 86 11/01/17 15:00 86 11/01/17 15:00 98.2 97 18 106/58 (74) 93 11/01/17 13:00 87 11/01/17 12:00 97.9 88 16 158/83 (108) 96 11/01/17 12:00 87 11/01/17 11:00 87 11/01/17 08:00 96 Nasal Cannula 3.00 11/01/17 07:32 99 Nasal Cannula 2.00 11/01/17 07:00 98.0 86 18 130/71 (90) 96 11/01/17 07:00 85 11/01/17 06:31 87 11/01/17 06:16 99 Nasal Cannula 2.00 11/01/17 05:00 90 11/01/17 05:00 Nasal Cannula 3.00 11/01/17 04:23 97 Nasal Cannula 3.00 11/01/17 04:00 90 11/01/17 03:00 97.6 91 18 156/84 (108) 95 11/01/17 03:00 90 11/01/17 02:00 90 11/01/17 01:00 90 11/01/17 00:00 92 10/31/17 23:00 92 18 155/79 (104) 99 10/31/17 23:00 91 10/31/17 22:00 90 10/31/17 21:00 90 10/31/17 20:56 97.6 91 18 151/77 (101) 96 10/31/17 20:00 90 10/31/17 20:00 97 Venturi Mask 6.00 40 -: 10/30/17 0618 11/01/17 0528 Physical Exam General Appearance: No Acute Distress, Comfortable Eyes Eye Exam: Pupils Equal Throat Throat Exam: Oral Mucosa [place] & Moist Neck Neck Exam: Neck Supple Pulmonary Resp Exam: Crackles, Rhonchi, Sputum, Decreased Bases, Diminished Breath Sounds Cardiology CV Exam: Regular, Normal Sinus Rhythm Gastrointestinal/Abdomen GI Exam: Soft, Non-Tender, Bowel Sounds Present, Non-Distended Extremeties Extremities Exam: Moderate Edema, Pitting Edema, Dependent Edema Extremeties Remarks Rt. lower leg with the dressing. Neurologic Neuro Exam: Alert, Awake, Oriented Assessment/Plan Assessment Summary: CONOR/Acute Renal Failure, Fluid/Volume Overload, Hypertension, CKD Stage IV Electrolyte Assessment: Hyperkalemia Problem List: (1) CAD (coronary artery disease) ICD Codes: I25.10 - Atherosclerotic heart disease of [place] coronary artery without angina pectoris Status: Chronic (2) COPD (chronic obstructive pulmonary disease) ICD Codes: J44.9 - Chronic obstructive pulmonary disease, unspecified Status: Chronic (3) Anemia ICD Codes: D64.9 - Anemia, unspecified Status: Chronic (4) Dog bite of multiple sites of right lower extremity ICD Codes: S81.851A - Open bite, right lower leg, initial encounter; W54.0XXA - Bitten by dog, initial encounter Status: Chronic (5) Respiratory failure ICD Codes: J96.90 - Respiratory failure, unspecified, unspecified whether with hypoxia or hypercapnia (6) Stage 4 chronic kidney disease ICD Codes: N18.4 - Chronic kidney disease, stage 4 (severe) (7) CONOR (acute kidney injury) ICD Codes: N17.9 - Acute kidney failure, unspecified Status: Acute Plan Patient has stage 4 chronic kidney disease. Also develop CONOR. Has generalized anasarca and resp. failure. On Lasix and Metolazone. Urine out put is better. Told to restrict oral fluid intake. Continue diuretics and follow BMP. Creatinine is now 2.3, continue diuresis. Flavio Toro MD Nov 01, 2017 19:33
[2017-11-02] VITALS (29 sets, daily range): BP systolic 128–166; BP diastolic 60–91; PULSE 54–93; RESP 14–18; TEMP 97.6–98.6; O2SAT 91–99
[2017-11-02] MEDS: HEPARIN SODIUM - SQ 10,000 UNITS/ML VIAL SQ SCH ×2 (00:24→13:00)
[2017-11-02] MEDS: INSULIN DETEMIR 100 UNITS/ML VIAL SQ SCH ×2 (00:24→12:00)
[2017-11-02] MEDS: ISOSORBIDE MONONITRATE 60 MG TAB PO SCH (06:16)
[2017-11-02] MEDS: INSULIN ASPART SUPPLEMENTAL SCALE SQ SCH ×4 (08:00→20:40)
--- NOTE | 2017-11-02 08:58 | HHI.PR ---
Subjective Remarks alert on o2 no acute distress Objective Vital Signs Date Time Temp Pulse Resp B/P (MAP) Pulse Ox O2 Delivery O2 Flow Rate FiO2 11/02/17 08:00 85 11/02/17 07:00 97.9 85 16 166/74 (104) 99 11/02/17 07:00 85 11/02/17 07:00 Nasal Cannula 3.00 40 11/02/17 06:00 87 11/02/17 05:04 86 11/02/17 04:07 85 11/02/17 03:23 97.6 85 18 158/84 (108) 98 11/02/17 03:00 85 11/02/17 02:02 63 11/02/17 01:04 86 11/02/17 00:17 98.0 87 18 158/89 (112) 98 11/02/17 00:00 87 11/01/17 23:00 89 11/01/17 22:00 89 11/01/17 19:00 97.8 97 18 144/84 (104) 94 11/01/17 19:00 97 Nasal Cannula 3.00 11/01/17 19:00 88 11/01/17 18:00 87 11/01/17 17:43 93 Nasal Cannula 2.00 11/01/17 17:00 86 11/01/17 16:00 86 11/01/17 15:00 86 11/01/17 15:00 98.2 97 18 106/58 (74) 93 11/01/17 13:00 87 11/01/17 12:00 97.9 88 16 158/83 (108) 96 11/01/17 12:00 87 11/01/17 11:00 87 I/O 11/01/17 11/01/17 11/01/17 11/02/17 11/02/17 11/02/17 07:00 15:00 23:00 07:00 15:00 23:00 Intake Total 280 ml 480 ml 480 ml Output Total 950 ml 1450 ml Balance -670 ml 480 ml -970 ml Intake Oral 280 ml 480 ml 480 ml Output Urine Total 950 ml 1450 ml # Bowel Movements 1 Result Diagram: 10/30/17 0618 11/01/17 0528 Objective Remarks GENERAL: SKIN: Warm and dry. HEAD: Atraumatic. Normocephalic. EYES: Pupils equal and round. No scleral icterus. No injection or drainage. ENT: No nasal bleeding or discharge. Mucous membranes pink and moist. NECK: Trachea midline. No JVD. CARDIOVASCULAR: Regular rate and rhythm. RESPIRATORY: decrease breath sounds at basis GASTROINTESTINAL: Abdomen soft, non-tender, nondistended. Hepatic and splenic margins not palpable. MUSCULOSKELETAL: Extremities without clubbing, cyanosis, or edema. No obvious deformities. NEUROLOGICAL: Awake and alert. No obvious cranial nerve deficits. Motor grossly within normal limits. Five out of 5 muscle strength in the arms and legs. Normal speech. PSYCHIATRIC: Appropriate mood and affect; insight and judgment normal. Assessment and Plan Assessment and Plan Respiratory failure COPD CHF Pleural effusion PLAN O2 as needed bronchodilators therapy for CHF Increase activity F/U Sylvia Marquez MD Nov 02, 2017 08:58
[2017-11-02] MEDS: METOLAZONE 2.5 MG TAB PO SCH (09:47)
[2017-11-02] MEDS: PRASUGREL 10 MG TAB PO SCH (09:47)
[2017-11-02] MEDS: NIFEdipine 60 MG SUSTAINED RELEASE TAB PO SCH ×2 (09:47→20:39)
[2017-11-02] MEDS: predniSONE 20 MG TAB PO SCH ×2 (09:47→20:39)
[2017-11-02] MEDS: ASPIRIN 81 MG CHEW TAB CHEW SCH (09:47)
[2017-11-02] MEDS: FUROSEMIDE 40 MG/4 ML VIAL IV PUSH SCH ×2 (09:48→17:36)
[2017-11-02] MEDS: METOPROLOL TARTRATE 50 MG TAB PO SCH ×2 (09:48→20:40)
[2017-11-02] MEDS: SODIUM CHLORIDE 0.9% FLUSH 10 ML FLUSH IV FLUSH SCH ×2 (09:48→20:40)
--- NOTE | 2017-11-02 10:37 | HHI.FPPN ---
Subjective Remarks C/O WEAKNESS C/O COUGH C/O CONGESTION D/W RN Objective Vitals Vital Signs Date Time Temp Pulse Resp B/P (MAP) Pulse Ox O2 Delivery O2 Flow Rate FiO2 11/02/17 10:00 66 11/02/17 09:00 64 11/02/17 08:00 85 11/02/17 07:00 97.9 85 16 166/74 (104) 99 11/02/17 07:00 85 11/02/17 07:00 Nasal Cannula 3.00 40 11/02/17 06:00 87 11/02/17 05:04 86 11/02/17 04:07 85 11/02/17 03:23 97.6 85 18 158/84 (108) 98 11/02/17 03:00 85 11/02/17 02:02 63 11/02/17 01:04 86 11/02/17 00:17 98.0 87 18 158/89 (112) 98 11/02/17 00:00 87 11/01/17 23:00 89 11/01/17 22:00 89 11/01/17 19:00 97.8 97 18 144/84 (104) 94 11/01/17 19:00 97 Nasal Cannula 3.00 11/01/17 19:00 88 11/01/17 18:00 87 11/01/17 17:43 93 Nasal Cannula 2.00 11/01/17 17:00 86 11/01/17 16:00 86 11/01/17 15:00 86 11/01/17 15:00 98.2 97 18 106/58 (74) 93 11/01/17 13:00 87 11/01/17 12:00 97.9 88 16 158/83 (108) 96 11/01/17 12:00 87 11/01/17 11:00 87 I/O 11/01/17 11/01/17 11/01/17 11/02/17 11/02/17 11/02/17 07:00 15:00 23:00 07:00 15:00 23:00 Intake Total 280 ml 480 ml 480 ml Output Total 950 ml 1450 ml Balance -670 ml 480 ml -970 ml Intake Oral 280 ml 480 ml 480 ml Output Urine Total 950 ml 1450 ml # Bowel Movements 1 Result Diagram: 10/30/1761711/01/17 0528 Objective Remarks GENERAL: SKIN: Warm and dry. R LEG dog bite HEAD: Atraumatic. Normocephalic. EYES: Pupils equal and round. No scleral icterus. No injection or drainage. ENT: No nasal bleeding or discharge. Mucous membranes pink and moist. NECK: Trachea midline. No JVD. CARDIOVASCULAR: Regular rate and rhythm. RESPIRATORY: No accessory muscle use. Clear to auscultation. Breath sounds equal bilaterally. GASTROINTESTINAL: Abdomen soft, non-tender, nondistended. Hepatic and splenic margins not palpable. MUSCULOSKELETAL: Extremities without clubbing, cyanosis, or edema. No obvious deformities. NEUROLOGICAL: Awake and alert. No obvious cranial nerve deficits. Motor grossly within normal limits. 2 out of 5 muscle strength in the arms and legs. Normal speech. PSYCHIATRIC: Appropriate mood and affect; insight and judgment normal. Medications and IVs Current Medications Medications (Trade) Dose Ordered Sig/Marie Route Start Time Stop Time Status Last Admin (Aspirin Chew) 81 mg DAILY CHEW 10/27/17 09:00 11/02/17 09:47 (Bumetanide) 2 mg BID PO 10/27/17 09:00 Future Hold (Imdur) 60 mg DAILY@0700 PO 10/27/17 07:00 11/02/17 06:16 (Lopressor) 50 mg BID PO 10/27/17 09:00 11/02/17 09:48 (Procardia Xl) 60 mg Q12HR PO 10/27/17 09:00 11/02/17 09:47 (Effient) 10 mg DAILY PO 10/27/17 09:00 11/02/17 09:47 (NS Flush) 2 ml BID IV FLUSH 10/27/17 09:00 11/02/17 09:48 (NS Flush) 2 ml UNSCH PRN IV FLUSH 10/27/17 04:30 (Albuterol Neb) 2.5 mg Q2HR NEB PRN INH 10/27/17 04:30 (D50w (Vial) Inj) 50 ml UNSCH PRN IV PUSH 10/27/17 04:45 (Glucagon Inj) 1 mg UNSCH PRN OTHER 10/27/17 04:45 (Lasix Inj) 40 mg BID@,18 IV PUSH 10/27/17 09:00 11/02/17 09:48 Cefepime HCl 2000 mg/Sodium Chloride 100 ml @ 200 mls/hr Q24H IV 10/27/17 12:00 11/01/17 11:53 Azithromycin 500 mg/Sodium Chloride 250 ml @ 250 mls/hr Q24H IV 10/27/17 11:00 11/01/17 10:40 (Zaroxolyn) 2.5 mg DAILY PO 10/28/17 09:00 11/02/17 09:47 (Heparin Inj) 5,000 units Q12H SQ 10/30/17 01:00 11/02/17 00:24 (Deltasone) 20 mg BID PO 10/30/17 21:00 11/02/17 09:47 (NovoLOG SUPPLEMENTAL SCALE) 1 ACHS SLIDING SCALE SQ 10/31/17 08:00 11/01/17 21:16 (Levemir Inj) 15 units Q12H SQ 10/31/17 12:00 11/02/17 00:24 A/P Assessment and Plan 66-year-old female with a history of diastolic CHF, bilateral pleural effusions with last thoracentesis on 10/04/17, diabetes mellitus, coronary artery disease, chronic kidney disease, COPD, hypertension, GERD, bone marrow suppression and chronic right lower extremity ulcer secondary to a dog bite presents to the emergency department with acutely worsening shortness of breath. 1. Respiratory failure/COPD exacerbation/CHF exacerbation/bilateral pleural effusions- Chest x-ray significant for bibasilar areas of consolidation or atelectasis with suspected bilateral effusions left greater than right. pulm following. On IV cefepime/azithro empirically BNP 504 -LVEF 55% on [facility] 06/2017 on IV steroids and IV Lasix. Nephrology following and added metolazone to help w diuresis. VQ scan indeterminate Wean O2 as tolerated Cardiology following, pt is s/p cardiac cath 06/2017 with WENDI to first diagonal , cannot hold effient for thoracentesis. d/c thoracentesis orders. Goals are for aggressive diuresis. chest x-ray 10/29- stable by basilar opacities representing pleural effusions with associated volume loss and/or consolidation 2. Anemia status post 1 unit packed red blood cells 3. Hyperkalemia Potassium 5.5--> 5.3 No EKG changes repeat BMP a.m. 5. Chronic right lower extremity ulcer secondary to dog bite Area with no signs of infection rn ent following ff with Dr. Read as outpatient 6. Insulin-dependent diabetes mellitus - uncontrolled Continue home Levemir 15 units subcutaneous every 12 hours, taper steroids SSI 7. CONOR WITH CKD 4 Nephrology ff repeat BMP in the morning 7. Hypertension Continue all medications FEN Heart healthy diet/ ADA Fluid restriction Electrolytes: As above heparin 5000 units SQ q 12 h for DVT px Timo Mobley MD Nov 02, 2017 10:37
[2017-11-02] MEDS: AZITHROMYCIN INJ 500 MG in SODIUM CHLOR 0.9% 250 ML INJ 250 ML IV SCH (11:00)
[2017-11-02] MEDS: CEFEPIME INJ 2,000 MG in SODIUM CHLORIDE 0.9% INJ 100 ML IV SCH (12:00)
--- NOTE | 2017-11-02 14:26 | PD.CARD.PN ---
Subjective Subjective Remarks No CP, SOB and edema improving Objective Medications Current Medications Medications (Trade) Dose Ordered Sig/Marie Route Start Time Stop Time Status Last Admin (Aspirin Chew) 81 mg DAILY CHEW 10/27/17 09:00 11/02/17 09:47 (Bumetanide) 2 mg BID PO 10/27/17 09:00 Future Hold (Imdur) 60 mg DAILY@0700 PO 10/27/17 07:00 11/02/17 06:16 (Lopressor) 50 mg BID PO 10/27/17 09:00 11/02/17 09:48 (Procardia Xl) 60 mg Q12HR PO 10/27/17 09:00 11/02/17 09:47 (Effient) 10 mg DAILY PO 10/27/17 09:00 11/02/17 09:47 (NS Flush) 2 ml BID IV FLUSH 10/27/17 09:00 11/02/17 09:48 (NS Flush) 2 ml UNSCH PRN IV FLUSH 10/27/17 04:30 (Albuterol Neb) 2.5 mg Q2HR NEB PRN INH 10/27/17 04:30 (D50w (Vial) Inj) 50 ml UNSCH PRN IV PUSH 10/27/17 04:45 (Glucagon Inj) 1 mg UNSCH PRN OTHER 10/27/17 04:45 (Lasix Inj) 40 mg BID@,18 IV PUSH 10/27/17 09:00 11/02/17 09:48 Cefepime HCl 2000 mg/Sodium Chloride 100 ml @ 200 mls/hr Q24H IV 10/27/17 12:00 11/01/17 11:53 Azithromycin 500 mg/Sodium Chloride 250 ml @ 250 mls/hr Q24H IV 10/27/17 11:00 11/02/17 11:00 (Zaroxolyn) 2.5 mg DAILY PO 10/28/17 09:00 11/02/17 09:47 (Heparin Inj) 5,000 units Q12H SQ 10/30/17 01:00 11/02/17 00:24 (Deltasone) 20 mg BID PO 10/30/17 21:00 11/02/17 09:47 (NovoLOG SUPPLEMENTAL SCALE) 1 ACHS SLIDING SCALE SQ 10/31/17 08:00 11/01/17 21:16 (Levemir Inj) 15 units Q12H SQ 10/31/17 12:00 11/02/17 12:00 Vital Signs / I&O Vital Signs Date Time Temp Pulse Resp B/P (MAP) Pulse Ox O2 Delivery O2 Flow Rate FiO2 11/02/17 12:00 87 11/02/17 11:14 97.6 74 16 134/77 (96) 92 11/02/17 11:00 74 11/02/17 10:00 66 11/02/17 09:00 64 11/02/17 08:00 85 11/02/17 07:00 97.9 85 16 166/74 (104) 99 11/02/17 07:00 85 11/02/17 07:00 Nasal Cannula 3.00 40 11/02/17 06:00 87 11/02/17 05:04 86 11/02/17 04:07 85 11/02/17 03:23 97.6 85 18 158/84 (108) 98 11/02/17 03:00 85 11/02/17 02:02 63 11/02/17 01:04 86 11/02/17 00:17 98.0 87 18 158/89 (112) 98 11/02/17 00:00 87 11/01/17 23:00 89 11/01/17 22:00 89 11/01/17 19:00 97.8 97 18 144/84 (104) 94 11/01/17 19:00 97 Nasal Cannula 3.00 11/01/17 19:00 88 11/01/17 18:00 87 11/01/17 17:43 93 Nasal Cannula 2.00 11/01/17 17:00 86 11/01/17 16:00 86 11/01/17 15:00 86 11/01/17 15:00 98.2 97 18 106/58 (74) 93 I/O 11/01/17 11/01/17 11/01/17 11/02/17 11/02/17 11/02/17 07:00 15:00 23:00 07:00 15:00 23:00 Intake Total 280 ml 480 ml 480 ml Output Total 950 ml 1450 ml Balance -670 ml 480 ml -970 ml Intake Oral 280 ml 480 ml 480 ml Output Urine Total 950 ml 1450 ml # Bowel Movements 1 Physical Exam GENERAL: In NAD SKIN: Warm and dry. HEAD: Normocephalic. EYES: No scleral icterus. No injection or drainage. NECK: Supple, trachea midline. No JVD or lymphadenopathy. CARDIOVASCULAR: Regular rate and rhythm without murmurs, gallops, or rubs. RESPIRATORY: Decreased BS at bases. No accessory muscle use. GASTROINTESTINAL: Abdomen soft, non-tender, nondistended. MUSCULOSKELETAL: No cyanosis, mild LE edema. Assessment and Plan Problem List: (1) Pleural effusion ICD Codes: J90 - Pleural effusion, not elsewhere classified (2) CHF (congestive heart failure) ICD Codes: I50.9 - Heart failure, unspecified (3) CONOR (acute kidney injury) ICD Codes: N17.9 - Acute kidney failure, unspecified Status: Acute (4) CAD (coronary artery disease) ICD Codes: I25.10 - Atherosclerotic heart disease of [place] coronary artery without angina pectoris Status: Chronic Assessment and Plan Slow but steady progress, I/Os negative. Still with significant pleural effusions, f/u CXR today. Continue diuresis, closely monitor renal fx. Thoracentesis cx due to the need to continue anticoagulation. Increase activity. Dunia Reddy MD Nov 02, 2017 14:25
--- NOTE | 2017-11-02 16:04 | RADRPT ---
EXAM DATE/TIME: 11/02/2017 15:12 [place] COMPARISON: CHEST PA & LAT, March 20, 2017, 21:14. INDICATIONS : Congestion. MEDICAL HISTORY : Chronic obstructive pulmonary disease. Congestive heart failure. SURGICAL HISTORY : None. ENCOUNTER: Subsequent ACUITY: 4 - 6 days PAIN SCORE: 0/10 LOCATION: Bilateral chest FINDINGS: The cardiac silhouette is enlarged in transverse diameter. There is left lower lobe atelectasis versu s pneumonia. There is prominence of the central pulmonary vasculature with indistinct vascular margin s compatible with vascular congestion but no evidence of overt failure. The right lung is free of acu te parenchymal opacity. CONCLUSION: 1. Cardiomegaly and findings of vascular congestion without overt failure. 2. Left lower lobe atelectasis versus pneumonia. 3. Left effusion Celestino Patrick MD on November 02, 2017 at 16:01 Board Certified Radiologist. This report was verified electronically.
--- NOTE | 2017-11-02 19:35 | HHI.NPPN ---
Subjective General Problems: Anemia, Edema, Hypertension Renal Failure: Chronic, Acute, Stage IV History of Present Illness 66-year-old female known to me from before with past medical history of ischemic heart disease, chronic obstructive pulmonary disease, hypertension, chronic kidney disease with diastolic dysfunction, congestive heart failure, history of edema in the legs came to the hospital with complaint of worsening shortness of breath and increased swelling of the legs. I was called to see the patient because of elevated BUN and creatinine. Additional Remarks Patient is alert, breathing is better, with nasal cannula. Review of Systems General Constitutional: Fatigue Respiratory Lungs: SOB, Cough, Wheeze Cardiovascular Cardiac: Edema, KAMARA Objective Data Data 11/02/17 11/03/17 19:00 07:00 Intake Total 550 ml Output Total 1500 ml Balance -950 ml Intake Oral 550 ml Output Urine Total 1500 ml # Bowel Movements 1 Vital Signs Date Time Temp Pulse Resp B/P (MAP) Pulse Ox O2 Delivery O2 Flow Rate FiO2 11/02/17 18:00 73 11/02/17 17:00 87 11/02/17 16:00 93 11/02/17 15:00 84 11/02/17 15:00 98.3 84 14 129/77 (94) 91 11/02/17 14:00 54 11/02/17 12:00 87 11/02/17 11:14 97.6 74 16 134/77 (96) 92 11/02/17 11:00 74 11/02/17 10:00 66 11/02/17 09:00 64 11/02/17 08:00 85 11/02/17 07:00 97.9 85 16 166/74 (104) 99 11/02/17 07:00 85 11/02/17 07:00 Nasal Cannula 3.00 40 11/02/17 06:00 87 11/02/17 05:04 86 11/02/17 04:07 85 11/02/17 03:23 97.6 85 18 158/84 (108) 98 11/02/17 03:00 85 11/02/17 02:02 63 11/02/17 01:04 86 11/02/17 00:17 98.0 87 18 158/89 (112) 98 11/02/17 00:00 87 11/01/17 23:00 89 11/01/17 22:00 89 -: 10/30/17 0618 11/01/17 0528 Physical Exam General Appearance: No Acute Distress, Comfortable Eyes Eye Exam: Pupils Equal Throat Throat Exam: Oral Mucosa [place] & Moist Neck Neck Exam: Neck Supple Pulmonary Resp Exam: Crackles, Rhonchi, Sputum, Decreased Bases, Diminished Breath Sounds Cardiology CV Exam: Regular, Normal Sinus Rhythm Gastrointestinal/Abdomen GI Exam: Soft, Non-Tender, Bowel Sounds Present, Non-Distended Extremeties Extremities Exam: Moderate Edema, Pitting Edema, Dependent Edema Extremeties Remarks Rt. lower leg with the dressing. Neurologic Neuro Exam: Alert, Awake, Oriented Assessment/Plan Assessment Summary: CONOR/Acute Renal Failure, Fluid/Volume Overload, Hypertension, CKD Stage IV Electrolyte Assessment: Hyperkalemia Problem List: (1) CAD (coronary artery disease) ICD Codes: I25.10 - Atherosclerotic heart disease of [place] coronary artery without angina pectoris Status: Chronic (2) COPD (chronic obstructive pulmonary disease) ICD Codes: J44.9 - Chronic obstructive pulmonary disease, unspecified Status: Chronic (3) Anemia ICD Codes: D64.9 - Anemia, unspecified Status: Chronic (4) Dog bite of multiple sites of right lower extremity ICD Codes: S81.851A - Open bite, right lower leg, initial encounter; W54.0XXA - Bitten by dog, initial encounter Status: Chronic (5) Respiratory failure ICD Codes: J96.90 - Respiratory failure, unspecified, unspecified whether with hypoxia or hypercapnia (6) Stage 4 chronic kidney disease ICD Codes: N18.4 - Chronic kidney disease, stage 4 (severe) (7) CONOR (acute kidney injury) ICD Codes: N17.9 - Acute kidney failure, unspecified Status: Acute Plan Patient has stage 4 chronic kidney disease. Also develop CONOR. Has generalized anasarca and resp. failure. On Lasix and Metolazone. Urine out put is better. Told to restrict oral fluid intake. Continue diuretics and follow BMP. Creatinine was better yesterday. No new BMP. Continue diuretics. Flavio Toro MD Nov 02, 2017 19:35
[2017-11-03] VITALS (27 sets, daily range): BP systolic 133–173; BP diastolic 74–93; PULSE 59–94; RESP 16–18; TEMP 97.3–98.6; O2SAT 94–98
[2017-11-03] MEDS: HEPARIN SODIUM - SQ 10,000 UNITS/ML VIAL SQ SCH ×2 (01:00→12:15)
[2017-11-03] MEDS: ISOSORBIDE MONONITRATE 60 MG TAB PO SCH (05:34)
[2017-11-03] MEDS: ASPIRIN 81 MG CHEW TAB CHEW SCH (09:08)
[2017-11-03] MEDS: METOPROLOL TARTRATE 50 MG TAB PO SCH ×2 (09:08→20:38)
[2017-11-03] MEDS: PRASUGREL 10 MG TAB PO SCH (09:08)
[2017-11-03] MEDS: FUROSEMIDE 40 MG/4 ML VIAL IV PUSH SCH ×2 (09:08→17:30)
[2017-11-03] MEDS: METOLAZONE 2.5 MG TAB PO SCH (09:08)
[2017-11-03] MEDS: predniSONE 20 MG TAB PO SCH ×2 (09:08→20:38)
[2017-11-03] MEDS: NIFEdipine 60 MG SUSTAINED RELEASE TAB PO SCH ×2 (09:08→20:38)
[2017-11-03] MEDS: INSULIN ASPART SUPPLEMENTAL SCALE SQ SCH ×4 (09:09→20:38)
[2017-11-03] MEDS: SODIUM CHLORIDE 0.9% FLUSH 10 ML FLUSH IV FLUSH SCH ×2 (09:09→20:38)
[2017-11-03] MEDS ORDERED: HYDR-3516 PO (10:57)
--- NOTE | 2017-11-03 10:57 | HHI.DCPOC ---
Discharge Care Plan Diagnosis: (1) Dog bite of multiple sites of right lower extremity (2) Pleural effusion (3) CHF (congestive heart failure) (4) Respiratory failure (5) CAD (coronary artery disease) (6) CONOR (acute kidney injury) (7) Stage 4 chronic kidney disease Goals to Promote Your Health * To prevent worsening of your condition and complications * To maintain your health at the optimal level Directions to Meet Your Goals Take your medications as prescribed Follow your dietary instruction Follow activity as directed Keep your appointments as scheduled Take your immunizations and boosters as scheduled If your symptoms worsen call your PCP, if no PCP go to Urgent Care Center or Emergency Room Smoking is Dangerous to Your Health. Avoid second hand smoke Call the 24-hour hour crisis hotline for domestic abuse at Timo Mobley MD Nov 03, 2017 10:57
--- NOTE | 2017-11-03 10:59 | HHI.DS ---
Discharge Summary Admission Date Oct 27, 2017 at 04:02 Discharge Date: Nov 03, 2017 Admitting Diagnosis CHF exacerbation, COPD exacerbation, Anemia (1) Dog bite of multiple sites of right lower extremity ICD Codes: S81.851A - Open bite, right lower leg, initial encounter; W54.0XXA - Bitten by dog, initial encounter Status: Chronic (2) Pleural effusion ICD Codes: J90 - Pleural effusion, not elsewhere classified (3) CHF (congestive heart failure) ICD Codes: I50.9 - Heart failure, unspecified (4) Stage 4 chronic kidney disease ICD Codes: N18.4 - Chronic kidney disease, stage 4 (severe) (5) CONOR (acute kidney injury) ICD Codes: N17.9 - Acute kidney failure, unspecified Status: Acute (6) Respiratory failure ICD Codes: J96.90 - Respiratory failure, unspecified, unspecified whether with hypoxia or hypercapnia (7) CAD (coronary artery disease) ICD Codes: I25.10 - Atherosclerotic heart disease of [place] coronary artery without angina pectoris Status: Chronic (8) Anemia ICD Codes: D64.9 - Anemia, unspecified Status: Chronic (9) COPD (chronic obstructive pulmonary disease) ICD Codes: J44.9 - Chronic obstructive pulmonary disease, unspecified Status: Chronic (10) Symptomatic anemia ICD Codes: D64.9 - Anemia, unspecified Status: Acute (11) Acute exacerbation of congestive heart failure ICD Codes: I50.9 - Heart failure, unspecified Status: Acute (12) COPD exacerbation ICD Codes: J44.1 - Chronic obstructive pulmonary disease with (acute) exacerbation Status: Acute (13) Diabetes mellitus with peripheral vascular disease ICD Codes: E11.51 - Type 2 diabetes mellitus with diabetic peripheral angiopathy without gangrene Status: Chronic CBC/BMP: 10/30/17 0618 11/01/17 0528 Significant Findings Laboratory Tests Test 10/31/17 15:10 11/01/17 05:28 Blood Urea Nitrogen 83 MG/DL (7-18) 78 MG/DL (7-18) Creatinine 2.52 MG/DL (0.50-1.00) 2.35 MG/DL (0.50-1.00) Random Glucose 274 MG/DL (74-106) 160 MG/DL (74-106) Estimat Glomerular Filtration Rate 19 ML/MIN (>89) 21 ML/MIN (>89) PE at Discharge GENERAL: SKIN: Warm and dry. HEAD: Atraumatic. Normocephalic. EYES: Pupils equal and round. No scleral icterus. No injection or drainage. ENT: No nasal bleeding or discharge. Mucous membranes pink and moist. NECK: Trachea midline. No JVD. CARDIOVASCULAR: Regular rate and rhythm. RESPIRATORY: No accessory muscle use. Clear to auscultation. Breath sounds equal bilaterally. GASTROINTESTINAL: Abdomen soft, non-tender, nondistended. Hepatic and splenic margins not palpable. MUSCULOSKELETAL: Extremities without clubbing, cyanosis, or edema. No obvious deformities. NEUROLOGICAL: Awake and alert. No obvious cranial nerve deficits. Motor grossly within normal limits. Five out of 5 muscle strength in the arms and legs. Normal speech. PSYCHIATRIC: Appropriate mood and affect; insight and judgment normal. Hospital Course 66-year-old female with a history of diastolic CHF, bilateral pleural effusions with last thoracentesis on 10/04/17, diabetes mellitus, coronary artery disease, chronic kidney disease, COPD, hypertension, GERD, bone marrow suppression and chronic right lower extremity ulcer secondary to a dog bite presents to the emergency department with acutely worsening shortness of breath. 1. Respiratory failure/COPD exacerbation/CHF exacerbation/bilateral pleural effusions- Chest x-ray significant for bibasilar areas of consolidation or atelectasis with suspected bilateral effusions left greater than right. pulm following. On IV cefepime/azithro empirically BNP 504 -LVEF 55% on [facility] 06/2017 on IV steroids and IV Lasix. Nephrology following and added metolazone to help w diuresis. VQ scan indeterminate Wean O2 as tolerated Cardiology following, pt is s/p cardiac cath 06/2017 with WENDI to first diagonal , cannot hold effient for thoracentesis. d/c thoracentesis orders. Goals are for aggressive diuresis. chest x-ray 10/29- stable by basilar opacities representing pleural effusions with associated volume loss and/or consolidation 2. Anemia status post 1 unit packed red blood cells 3. Hyperkalemia Potassium 5.5--> 5.3 No EKG changes repeat BMP a.m. 5. Chronic right lower extremity ulcer secondary to dog bite Area with no signs of infection senior advisor following ff with Dr. Read as outpatient 6. Insulin-dependent diabetes mellitus - uncontrolled Continue home Levemir 15 units subcutaneous every 12 hours, taper steroids SSI 7. CONOR WITH CKD 4 Nephrology ff repeat BMP in the morning 7. Hypertension Continue all medications FEN Heart healthy diet/ ADA Fluid restriction Electrolytes: As above heparin 5000 units SQ q 12 h for DVT px REQS DC BACK TO [facility] Pt Condition on Discharge: Stable Discharge Disposition: Discharge to SNF Discharge Instructions DIET: Follow Instructions for: Heart Healthy Diet Activities you can perform: Regular-No Restrictions Follow up Referrals: Nephrology - 2-[address] HOROWITZ PCP Follow-up - [address] LOAIZA Pulmonology - 2-3 Days with Sylvia Ward MD Changed Medications: Hydrocodone/Acetaminophen (Hydrocodone-Acetamin 5-325 mg) 5 Mg-325 Mg Tablet 1 TAB PO Q6HR PRN for PAIN GREATER THAN 5 for 5 Days, #90 TAB 0 Refills ( Changed from: 20; Removed Instructions) Continued Medications: Acetaminophen (Tylenol) 325 Mg Tab 325 MG PO Q4H PRN for PAIN SCALE 1 TO 5, TAB 0 Refills Aspirin (Aspirin) 81 Mg Chew 81 MG CHEW DAILY, TAB 0 Refills Bumetanide (Bumetanide) 2 Mg Tab 2 MG PO BID, TAB 0 Refills Insulin Aspart Inj (Novolog Inj) 100 Unit/Ml Inj 1 UNITS SQ ACHS SLIDING SCALE for Blood Sugar Management for 30 Days, INJECTION Sliding Scale As Directed.150-199 1 Unit; 200-249 3 units; 250-299 5 Units; 300-349 7 Units; Insulin Aspart Inj (Novolog Inj) 1,000 Unit/10 Ml Vial 4 UNITS SQ TIDAC for DM for 30 Days, #1 INJECTION Insulin Detemir Inj (Levemir Inj) 1,000 unit/ 10 ML Vial 8 UNITS SQ HS for Blood Sugar Management, VIAL 0 Refills Do not mix with any other Insulin. Ipratropium Neb (Ipratropium Neb) 0.5 Mg/2.5 Ml Amp 0.5 MG NEB Q8HR, #120 NEBULE 0 Refills Isosorbide Mononitrate ER (Isosorbide Mononitrate ER) 60 Mg Tab 60 MG PO DAILY for Prevent Chest Pain, #30 TAB 0 Refills Metolazone (Metolazone) 2.5 Mg Tab 2.5 MG PO DAILY, #30 TAB 0 Refills Metoprolol Tartrate (Metoprolol Tartrate) 50 Mg Tab 50 MG PO BID, #60 TAB 0 Refills Nifedipine ER 24 HR (Nifedipine ER 24 HR) 60 Mg Tab 60 MG PO Q12HR for HTN for 30 Days, #60 TAB Prasugrel (Effient) 10 Mg Tab 10 MG PO DAILY for Blood Clot Prevention, #30 TAB 0 Refills Zinc Sulfate (Orazinc) 220 Mg (50 Mg Zinc) Cap [Albuterol-Ipratropium Neb] () 1 AMPULE NEBU 1 AMPULE NEB Q4-6H PRN for SHORTNESS OF BREATH for 14 Days, #60 NEBULE Discontinued Medications: Insulin Detemir Inj (Levemir Inj) 1,000 unit/ 10 ML Vial 8 UNITS SQ DAILYAC for Blood Sugar Management, VIAL 0 Refills Do not mix with any other Insulin. Prednisone (Prednisone) 5 Mg Tab 5 MG PO BID for EBONY for 6 Days, #9 TAB take 5 mg po bid x 3 days then 5 mg po daily x 3 days then DC Timo Loaiza MD Nov 03, 2017 10:59
[2017-11-03 12:05] LABS: AUTOMATED NEUTROPHIL # 9.7 TH/MM3 (1.8-7.7); BASOPHIL % 0.2 % (0.0-2.0); HEMATOCRIT 32.5 % (35.0-46.0); HEMO FLAGS DIFF FINAL; LYMPH % 5.5 % (9.0-44.0); LYMPHOCYTE # 0.6 TH/MM3 (1.0-4.8); MEAN CELL VOLUME 88.9 FL (80.0-100.0); MEAN CORPUSCULAR HEMOGLOBIN 29.4 PG (27.0-34.0); MONO % 3.1 % (0.0-8.0); NEUT % 91.2 % (16.0-70.0); PLATELET COUNT 268 TH/MM3 (150-450); RED BLOOD COUNT 3.66 MIL/MM3 (4.00-5.30); RED CELL DISTRIBUTION WIDTH 14.3 % (11.6-17.2); WHITE BLOOD COUNT 10.7 TH/MM3 (4.0-11.0)
[2017-11-03] MEDS: AZITHROMYCIN INJ 500 MG in SODIUM CHLOR 0.9% 250 ML INJ 250 ML IV SCH (12:09)
[2017-11-03] MEDS: INSULIN DETEMIR 100 UNITS/ML VIAL SQ SCH ×2 (12:14)
[2017-11-03] MEDS: CEFEPIME INJ 2,000 MG in SODIUM CHLORIDE 0.9% INJ 100 ML IV SCH (12:15)
[2017-11-03 12:42] LABS: BICARBONATE 26.5 MEQ/L (21.0-32.0); POTASSIUM 3.8 MEQ/L (3.5-5.1)
--- NOTE | 2017-11-03 12:50 | PD.CARD.PN ---
Subjective Subjective Remarks No CP, less SOB, feels better Objective Medications Current Medications Medications (Trade) Dose Ordered Sig/Marie Route Start Time Stop Time Status Last Admin (Aspirin Chew) 81 mg DAILY CHEW 10/27/17 09:00 11/03/17 09:08 (Bumetanide) 2 mg BID PO 10/27/17 09:00 Future Hold (Imdur) 60 mg DAILY@0700 PO 10/27/17 07:00 11/03/17 05:34 (Lopressor) 50 mg BID PO 10/27/17 09:00 11/03/17 09:08 (Procardia Xl) 60 mg Q12HR PO 10/27/17 09:00 11/03/17 09:08 (Effient) 10 mg DAILY PO 10/27/17 09:00 11/03/17 09:08 (NS Flush) 2 ml BID IV FLUSH 10/27/17 09:00 11/03/17 09:09 (NS Flush) 2 ml UNSCH PRN IV FLUSH 10/27/17 04:30 (Albuterol Neb) 2.5 mg Q2HR NEB PRN INH 10/27/17 04:30 (D50w (Vial) Inj) 50 ml UNSCH PRN IV PUSH 10/27/17 04:45 (Glucagon Inj) 1 mg UNSCH PRN OTHER 10/27/17 04:45 (Lasix Inj) 40 mg BID@09,18 IV PUSH 10/27/17 09:00 11/03/17 09:08 Cefepime HCl 2000 mg/Sodium Chloride 100 ml @ 200 mls/hr Q24H IV 10/27/17 12:00 11/03/17 12:15 Azithromycin 500 mg/Sodium Chloride 250 ml @ 250 mls/hr Q24H IV 10/27/17 11:00 11/03/17 12:09 (Zaroxolyn) 2.5 mg DAILY PO 10/28/17 09:00 11/03/17 09:08 (Heparin Inj) 5,000 units Q12H SQ 10/30/17 01:00 11/03/17 12:15 (Deltasone) 20 mg BID PO 10/30/17 21:00 11/03/17 09:08 (NovoLOG SUPPLEMENTAL SCALE) 1 ACHS SLIDING SCALE SQ 10/31/17 08:00 11/03/17 12:13 (Levemir Inj) 15 units Q12H SQ 10/31/17 12:00 11/03/17 12:14 Vital Signs / I&O Vital Signs Date Time Temp Pulse Resp B/P (MAP) Pulse Ox O2 Delivery O2 Flow Rate FiO2 11/03/17 12:00 86 11/03/17 11:00 84 11/03/17 11:00 97.3 88 16 133/74 (93) 96 11/03/17 10:00 81 11/03/17 09:00 89 11/03/17 08:30 96 Nasal Cannula 1.50 11/03/17 08:00 84 11/03/17 07:00 Nasal Cannula 2.00 40 11/03/17 07:00 83 11/03/17 07:00 97.9 86 16 140/83 (102) 96 11/03/17 05:00 86 11/03/17 04:00 86 11/03/17 03:55 98.2 80 18 173/93 (119) 94 11/03/17 03:00 91 11/03/17 02:00 86 11/03/17 01:00 88 11/03/17 00:00 88 11/02/17 23:00 61 11/02/17 22:52 98.2 80 18 162/91 (114) 94 11/02/17 22:19 99 Nasal Cannula 2.00 11/02/17 22:05 93 Nasal Cannula 3.00 11/02/17 22:00 62 11/02/17 21:00 64 11/02/17 20:00 64 11/02/17 19:30 98.6 80 18 128/60 (82) 94 11/02/17 19:00 65 11/02/17 18:00 73 11/02/17 17:00 87 11/02/17 16:00 93 11/02/17 15:00 84 11/02/17 15:00 98.3 84 14 129/77 (94) 91 11/02/17 14:00 54 I/O 11/02/17 11/02/17 11/02/17 11/03/17 11/03/17 11/03/17 07:00 15:00 23:00 07:00 15:00 23:00 Intake Total 480 ml 550 ml 480 ml Output Total 1450 ml 1500 ml 950 ml Balance -970 ml -950 ml -470 ml Intake Oral 480 ml 550 ml 480 ml Output Urine Total 1450 ml 1500 ml 950 ml # Bowel Movements 1 1 1 Physical Exam GENERAL: In NAD SKIN: Warm and dry. HEAD: Normocephalic. EYES: No scleral icterus. No injection or drainage. NECK: Supple, trachea midline. No JVD or lymphadenopathy. CARDIOVASCULAR: Regular rate and rhythm without murmurs, gallops, or rubs. RESPIRATORY: Decreased BS at bases. No accessory muscle use. GASTROINTESTINAL: Abdomen soft, non-tender, nondistended. MUSCULOSKELETAL: No cyanosis, mild LE edema. Laboratory Laboratory Tests Test 11/03/17 11:25 White Blood Count 10.7 TH/MM3 Red Blood Count 3.66 MIL/MM3 Hemoglobin 10.7 GM/DL Hematocrit 32.5 % Mean Corpuscular Volume 88.9 FL Mean Corpuscular Hemoglobin 29.4 PG Mean Corpuscular Hemoglobin Concent 33.0 % Red Cell Distribution Width 14.3 % Platelet Count 268 TH/MM3 Mean Platelet Volume 8.2 FL Neutrophils (%) (Auto) 91.2 % Lymphocytes (%) (Auto) 5.5 % Monocytes (%) (Auto) 3.1 % Eosinophils (%) (Auto) 0.0 % Basophils (%) (Auto) 0.2 % Neutrophils # (Auto) 9.7 TH/MM3 Lymphocytes # (Auto) 0.6 TH/MM3 Monocytes # (Auto) 0.3 TH/MM3 Eosinophils # (Auto) 0.0 TH/MM3 Basophils # (Auto) 0.0 TH/MM3 CBC Comment DIFF FINAL Differential Comment Blood Urea Nitrogen 81 MG/DL Creatinine 2.22 MG/DL Random Glucose 195 MG/DL Calcium Level 8.6 MG/DL Sodium Level 140 MEQ/L Potassium Level 3.8 MEQ/L Chloride Level 104 MEQ/L Carbon Dioxide Level 26.5 MEQ/L Anion Gap 10 MEQ/L Estimat Glomerular Filtration Rate 22 ML/MIN Assessment and Plan Problem List: (1) Pleural effusion ICD Codes: J90 - Pleural effusion, not elsewhere classified (2) CHF (congestive heart failure) ICD Codes: I50.9 - Heart failure, unspecified (3) CONOR (acute kidney injury) ICD Codes: N17.9 - Acute kidney failure, unspecified Status: Acute (4) CAD (coronary artery disease) ICD Codes: I25.10 - Atherosclerotic heart disease of [place] coronary artery without angina pectoris Status: Chronic Assessment and Plan Continued improvement. Continue diuresis, closely monitor renal fx. Thoracentesis cx due to the need to continue anticoagulation. Increase activity. Anticipate transfer to rehab as planned. Dunia Reddy MD Nov 03, 2017 12:49
--- NOTE | 2017-11-03 18:45 | HHI.NPPN ---
Subjective General Problems: Anemia, Edema, Hypertension Renal Failure: Chronic, Acute, Stage IV History of Present Illness 66-year-old female known to me from before with past medical history of ischemic heart disease, chronic obstructive pulmonary disease, hypertension, chronic kidney disease with diastolic dysfunction, congestive heart failure, history of edema in the legs came to the hospital with complaint of worsening shortness of breath and increased swelling of the legs. I was called to see the patient because of elevated BUN and creatinine. Additional Remarks Patient is alert, breathing is better, not in distress. Review of Systems General Constitutional: Fatigue Respiratory Lungs: SOB, Cough, Wheeze Cardiovascular Cardiac: Edema, KAMARA Objective Data Data 11/03/17 11/04/17 18:59 06:59 Intake Total 520 ml Output Total 1800 ml Balance -1280 ml Intake Oral 520 ml Output Urine Total 1800 ml Vital Signs Date Time Temp Pulse Resp B/P (MAP) Pulse Ox O2 Delivery O2 Flow Rate FiO2 11/03/17 18:00 89 11/03/17 17:00 79 11/03/17 16:00 88 11/03/17 15:00 84 11/03/17 15:00 98.3 94 18 136/75 (95) 96 11/03/17 14:00 89 11/03/17 13:00 77 11/03/17 12:00 86 11/03/17 11:00 84 11/03/17 11:00 97.3 88 16 133/74 (93) 96 11/03/17 10:00 81 11/03/17 09:00 89 11/03/17 08:30 96 Nasal Cannula 1.50 11/03/17 08:00 84 11/03/17 07:00 Nasal Cannula 2.00 40 11/03/17 07:00 83 11/03/17 07:00 97.9 86 16 140/83 (102) 96 11/03/17 05:00 86 11/03/17 04:00 86 11/03/17 03:55 98.2 80 18 173/93 (119) 94 11/03/17 03:00 91 11/03/17 02:00 86 11/03/17 01:00 88 11/03/17 00:00 88 11/02/17 23:00 61 11/02/17 22:52 98.2 80 18 162/91 (114) 94 11/02/17 22:19 99 Nasal Cannula 2.00 11/02/17 22:05 93 Nasal Cannula 3.00 11/02/17 22:00 62 11/02/17 21:00 64 11/02/17 20:00 64 11/02/17 19:30 98.6 80 18 128/60 (82) 94 11/02/17 19:00 66 -: 11/03/17 1125 11/03/17 1125 Physical Exam General Appearance: No Acute Distress, Comfortable Eyes Eye Exam: Pupils Equal Throat Throat Exam: Oral Mucosa [place] & Moist Neck Neck Exam: Neck Supple Pulmonary Resp Exam: Crackles, Rhonchi, Sputum, Decreased Bases, Diminished Breath Sounds Cardiology CV Exam: Regular, Normal Sinus Rhythm Gastrointestinal/Abdomen GI Exam: Soft, Non-Tender, Bowel Sounds Present, Non-Distended Extremeties Extremities Exam: Moderate Edema, Pitting Edema, Dependent Edema Extremeties Remarks Rt. lower leg with the dressing. Neurologic Neuro Exam: Alert, Awake, Oriented Assessment/Plan Assessment Summary: CONOR/Acute Renal Failure, Fluid/Volume Overload, Hypertension, CKD Stage IV Electrolyte Assessment: Hyperkalemia Problem List: (1) CAD (coronary artery disease) ICD Codes: I25.10 - Atherosclerotic heart disease of [place] coronary artery without angina pectoris Status: Chronic (2) COPD (chronic obstructive pulmonary disease) ICD Codes: J44.9 - Chronic obstructive pulmonary disease, unspecified Status: Chronic (3) Anemia ICD Codes: D64.9 - Anemia, unspecified Status: Chronic (4) Dog bite of multiple sites of right lower extremity ICD Codes: S81.851A - Open bite, right lower leg, initial encounter; W54.0XXA - Bitten by dog, initial encounter Status: Chronic (5) Respiratory failure ICD Codes: J96.90 - Respiratory failure, unspecified, unspecified whether with hypoxia or hypercapnia (6) Stage 4 chronic kidney disease ICD Codes: N18.4 - Chronic kidney disease, stage 4 (severe) (7) CONOR (acute kidney injury) ICD Codes: N17.9 - Acute kidney failure, unspecified Status: Acute Plan Patient has stage 4 chronic kidney disease. Also develop CONOR. Has generalized anasarca and resp. failure. On Lasix and Metolazone. Urine out put is better. Told to restrict oral fluid intake. Continue diuretics and follow BMP. Creatinine is now 2.2, Continue diuretics. Edema is improving. Started on PT. Flavio Toro MD Nov 03, 2017 18:45
--- NOTE | 2017-11-03 18:57 | HHI.PR ---
Subjective Remarks 66 YO WF with SOB,CHF,Pl eff,CAD Had PRBC Breathing much better On 2.5 LNC " I want to go home: Works with PT Objective Vital Signs Vital Signs Date Time Temp Pulse Resp B/P (MAP) Pulse Ox O2 Delivery O2 Flow Rate FiO2 11/03/17 18:00 89 11/03/17 17:00 79 11/03/17 16:00 88 11/03/17 15:00 84 11/03/17 15:00 98.3 94 18 136/75 (95) 96 11/03/17 14:00 89 11/03/17 13:00 77 11/03/17 12:00 86 11/03/17 11:00 84 11/03/17 11:00 97.3 88 16 133/74 (93) 96 11/03/17 10:00 81 11/03/17 09:00 89 11/03/17 08:30 96 Nasal Cannula 1.50 11/03/17 08:00 84 11/03/17 07:00 Nasal Cannula 2.00 40 11/03/17 07:00 83 11/03/17 07:00 97.9 86 16 140/83 (102) 96 11/03/17 05:00 86 11/03/17 04:00 86 11/03/17 03:55 98.2 80 18 173/93 (119) 94 11/03/17 03:00 91 11/03/17 02:00 86 11/03/17 01:00 88 11/03/17 00:00 88 11/02/17 23:00 61 11/02/17 22:52 98.2 80 18 162/91 (114) 94 11/02/17 22:19 99 Nasal Cannula 2.00 11/02/17 22:05 93 Nasal Cannula 3.00 11/02/17 22:00 62 11/02/17 21:00 64 11/02/17 20:00 64 11/02/17 19:30 98.6 80 18 128/60 (82) 94 11/02/17 19:00 65 I/O 11/02/17 11/02/17 11/02/17 11/03/17 11/03/17 11/03/17 07:00 15:00 23:00 07:00 15:00 23:00 Intake Total 480 ml 550 ml 480 ml 520 ml Output Total 1450 ml 1500 ml 950 ml 1800 ml Balance -970 ml -950 ml -470 ml -1280 ml Intake Oral 480 ml 550 ml 480 ml 520 ml Output Urine Total 1450 ml 1500 ml 950 ml 1800 ml # Bowel Movements 1 1 1 Result Diagram: 11/03/17 1125 11/03/17 1125 Objective Remarks GENERAL: Obese WF mild sob SKIN: Warm and dry. HEAD: Normocephalic. EYES: No scleral icterus. No injection or drainage. NECK: Supple, trachea midline. No JVD or lymphadenopathy. CARDIOVASCULAR: Regular rate and rhythm without murmurs, gallops, or rubs. RESPIRATORY: Breath sounds equal bilaterally. No accessory muscle use. GASTROINTESTINAL: Abdomen soft, non-tender, nondistended. MUSCULOSKELETAL: No cyanosis, ++ edema. BACK: Nontender without obvious deformity. No CVA tenderness. A/P Assessment and Plan Dysnoea, improving Hypoxia CHF Pleural effusion COPD Obesity CAD, s/p WENDI PLAN: Diurease Aerosol nebs Supplement 02 Monitor renal functions DC plans underway Aaron Blankenship MD Nov 03, 2017 18:57
[2017-11-04] VITALS (16 sets, daily range): BP systolic 132–149; BP diastolic 65–79; PULSE 56–89; RESP 18; TEMP 97.6–98.6; O2SAT 95–98
[2017-11-04] MEDS: HEPARIN SODIUM - SQ 10,000 UNITS/ML VIAL SQ SCH ×2 (00:11→13:08)
[2017-11-04] MEDS: ISOSORBIDE MONONITRATE 60 MG TAB PO SCH (06:06)
[2017-11-04 07:18] LABS: AUTOMATED NEUTROPHIL # 15.4 TH/MM3 (1.8-7.7); BASOPHIL % 0.3 % (0.0-2.0); HEMATOCRIT 33.1 % (35.0-46.0); HEMO FLAGS DIFF FINAL; LYMPH % 3.7 % (9.0-44.0); LYMPHOCYTE # 0.6 TH/MM3 (1.0-4.8); MEAN CELL VOLUME 88.9 FL (80.0-100.0); MEAN CORPUSCULAR HEMOGLOBIN 29.7 PG (27.0-34.0); MEAN CORPUSCULAR HGB CONC 33.4 % (32.0-36.0); MONO % 2.9 % (0.0-8.0); NEUT % 93.1 % (16.0-70.0); PLATELET COUNT 245 TH/MM3 (150-450); RED BLOOD COUNT 3.73 MIL/MM3 (4.00-5.30); RED CELL DISTRIBUTION WIDTH 14.5 % (11.6-17.2); WHITE BLOOD COUNT 16.5 TH/MM3 (4.0-11.0)
[2017-11-04 07:23] LABS: BICARBONATE 26.5 MEQ/L (21.0-32.0); POTASSIUM 3.5 MEQ/L (3.5-5.1)
[2017-11-04] MEDS: INSULIN ASPART SUPPLEMENTAL SCALE SQ SCH ×3 (08:00→16:42)
[2017-11-04] MEDS: predniSONE 20 MG TAB PO SCH (08:47)
[2017-11-04] MEDS: METOLAZONE 2.5 MG TAB PO SCH (08:47)
[2017-11-04] MEDS: NIFEdipine 60 MG SUSTAINED RELEASE TAB PO SCH (08:47)
[2017-11-04] MEDS: SODIUM CHLORIDE 0.9% FLUSH 10 ML FLUSH IV FLUSH SCH (08:48)
[2017-11-04] MEDS: FUROSEMIDE 40 MG/4 ML VIAL IV PUSH SCH (08:48)
[2017-11-04] MEDS: PRASUGREL 10 MG TAB PO SCH (08:48)
[2017-11-04] MEDS: ASPIRIN 81 MG CHEW TAB CHEW SCH (08:48)
[2017-11-04] MEDS ORDERED: predniSONE 20 MG TAB PO SCH (09:00)
[2017-11-04] MEDS: METOPROLOL TARTRATE 50 MG TAB PO SCH (09:02)
--- NOTE | 2017-11-04 12:14 | HHI.DS ---
Discharge Summary Admission Date Oct 27, 2017 at 04:02 Discharge Date: Nov 04, 2017 Admitting Diagnosis CHF exacerbation, COPD exacerbation, Anemia (1) Dog bite of multiple sites of right lower extremity ICD Codes: S81.851A - Open bite, right lower leg, initial encounter; W54.0XXA - Bitten by dog, initial encounter Status: Chronic (2) Pleural effusion ICD Codes: J90 - Pleural effusion, not elsewhere classified (3) CHF (congestive heart failure) ICD Codes: I50.9 - Heart failure, unspecified (4) Stage 4 chronic kidney disease ICD Codes: N18.4 - Chronic kidney disease, stage 4 (severe) (5) CONOR (acute kidney injury) ICD Codes: N17.9 - Acute kidney failure, unspecified Status: Acute (6) Respiratory failure ICD Codes: J96.90 - Respiratory failure, unspecified, unspecified whether with hypoxia or hypercapnia (7) CAD (coronary artery disease) ICD Codes: I25.10 - Atherosclerotic heart disease of [place] coronary artery without angina pectoris Status: Chronic (8) Anemia ICD Codes: D64.9 - Anemia, unspecified Status: Chronic (9) COPD (chronic obstructive pulmonary disease) ICD Codes: J44.9 - Chronic obstructive pulmonary disease, unspecified Status: Chronic (10) Symptomatic anemia ICD Codes: D64.9 - Anemia, unspecified Status: Acute (11) Acute exacerbation of congestive heart failure ICD Codes: I50.9 - Heart failure, unspecified Status: Acute (12) COPD exacerbation ICD Codes: J44.1 - Chronic obstructive pulmonary disease with (acute) exacerbation Status: Acute (13) Diabetes mellitus with peripheral vascular disease ICD Codes: E11.51 - Type 2 diabetes mellitus with diabetic peripheral angiopathy without gangrene Status: Chronic CBC/BMP: 11/04/17 0450 11/04/17 0450 Significant Findings Laboratory Tests Test 11/03/17 11:25 11/04/17 04:50 Red Blood Count 3.66 MIL/MM3 (4.00-5.30) 3.73 MIL/MM3 (4.00-5.30) Hemoglobin 10.7 GM/DL (11.6-15.3) 11.1 GM/DL (11.6-15.3) Hematocrit 32.5 % (35.0-46.0) 33.1 % (35.0-46.0) Neutrophils (%) (Auto) 91.2 % (16.0-70.0) 93.1 % (16.0-70.0) Lymphocytes (%) (Auto) 5.5 % (9.0-44.0) 3.7 % (9.0-44.0) Neutrophils # (Auto) 9.7 TH/MM3 (1.8-7.7) 15.4 TH/MM3 (1.8-7.7) Lymphocytes # (Auto) 0.6 TH/MM3 (1.0-4.8) 0.6 TH/MM3 (1.0-4.8) Blood Urea Nitrogen 81 MG/DL (7-18) 77 MG/DL (7-18) Creatinine 2.22 MG/DL (0.50-1.00) 2.15 MG/DL (0.50-1.00) Random Glucose 195 MG/DL (74-106) 155 MG/DL (74-106) Estimat Glomerular Filtration Rate 22 ML/MIN (>89) 23 ML/MIN (>89) White Blood Count 16.5 TH/MM3 (4.0-11.0) PE at Discharge GENERAL: SKIN: Warm and dry. HEAD: Atraumatic. Normocephalic. EYES: Pupils equal and round. No scleral icterus. No injection or drainage. ENT: No nasal bleeding or discharge. Mucous membranes pink and moist. NECK: Trachea midline. No JVD. CARDIOVASCULAR: Regular rate and rhythm. RESPIRATORY: No accessory muscle use. Clear to auscultation. Breath sounds equal bilaterally. GASTROINTESTINAL: Abdomen soft, non-tender, nondistended. Hepatic and splenic margins not palpable. MUSCULOSKELETAL: Extremities without clubbing, cyanosis, or edema. No obvious deformities. NEUROLOGICAL: Awake and alert. No obvious cranial nerve deficits. Motor grossly within normal limits. Five out of 5 muscle strength in the arms and legs. Normal speech. PSYCHIATRIC: Appropriate mood and affect; insight and judgment normal. Hospital Course 66-year-old female with a history of diastolic CHF, bilateral pleural effusions with last thoracentesis on 10/04/17, diabetes mellitus, coronary artery disease, chronic kidney disease, COPD, hypertension, GERD, bone marrow suppression and chronic right lower extremity ulcer secondary to a dog bite presents to the emergency department with acutely worsening shortness of breath. 1. Respiratory failure/COPD exacerbation/CHF exacerbation/bilateral pleural effusions- Chest x-ray significant for bibasilar areas of consolidation or atelectasis with suspected bilateral effusions left greater than right. pulm following. On IV cefepime/azithro empirically BNP 504 -LVEF 55% on LHC 06/2017 on IV steroids and IV Lasix. Nephrology following and added metolazone to help w diuresis. VQ scan indeterminate Wean O2 as tolerated Cardiology following, pt is s/p cardiac cath 06/2017 with WENDI to first diagonal , cannot hold effient for thoracentesis. d/c thoracentesis orders. Goals are for aggressive diuresis. chest x-ray 10/29- stable by basilar opacities representing pleural effusions with associated volume loss and/or consolidation 2. Anemia status post 1 unit packed red blood cells 3. Hyperkalemia Potassium 5.5--> 5.3 No EKG changes repeat BMP a.m. 5. Chronic right lower extremity ulcer secondary to dog bite Area with no signs of infection educational administrator following ff with Dr. Read as outpatient 6. Insulin-dependent diabetes mellitus - uncontrolled Continue home Levemir 15 units subcutaneous every 12 hours, taper steroids SSI 7. CONOR WITH CKD 4 Nephrology ff repeat BMP in the morning 7. Hypertension Continue all medications PT REFUSED SNF, WORKING ON DC HOME HOPEFULLY TODAY... Pt Condition on Discharge: Stable Discharge Disposition: Discharge to SNF Discharge Instructions DIET: Follow Instructions for: Heart Healthy Diet Activities you can perform: Regular-No Restrictions Changed Medications: Hydrocodone/Acetaminophen (Hydrocodone-Acetamin 5-325 mg) 5 Mg-325 Mg Tablet 1 TAB PO Q6HR PRN for PAIN GREATER THAN 5 for 5 Days, #90 TAB 0 Refills ( Changed from: 20; Removed Instructions) Continued Medications: Acetaminophen (Tylenol) 325 Mg Tab 325 MG PO Q4H PRN for PAIN SCALE 1 TO 5, TAB 0 Refills Aspirin (Aspirin) 81 Mg Chew 81 MG CHEW DAILY, TAB 0 Refills Bumetanide (Bumetanide) 2 Mg Tab 2 MG PO BID, TAB 0 Refills Insulin Aspart Inj (Novolog Inj) 100 Unit/Ml Inj 1 UNITS SQ ACHS SLIDING SCALE for Blood Sugar Management for 30 Days, INJECTION Sliding Scale As Directed.150-199 1 Unit; 200-249 3 units; 250-299 5 Units; 300-349 7 Units; Insulin Aspart Inj (Novolog Inj) 1,000 Unit/10 Ml Vial 4 UNITS SQ TIDAC for DM for 30 Days, #1 INJECTION Insulin Detemir Inj (Levemir Inj) 1,000 unit/ 10 ML Vial 8 UNITS SQ HS for Blood Sugar Management, VIAL 0 Refills Do not mix with any other Insulin. Ipratropium Neb (Ipratropium Neb) 0.5 Mg/2.5 Ml Amp 0.5 MG NEB Q8HR, #120 NEBULE 0 Refills Isosorbide Mononitrate ER (Isosorbide Mononitrate ER) 60 Mg Tab 60 MG PO DAILY for Prevent Chest Pain, #30 TAB 0 Refills Metolazone (Metolazone) 2.5 Mg Tab 2.5 MG PO DAILY, #30 TAB 0 Refills Metoprolol Tartrate (Metoprolol Tartrate) 50 Mg Tab 50 MG PO BID, #60 TAB 0 Refills Nifedipine ER 24 HR (Nifedipine ER 24 HR) 60 Mg Tab 60 MG PO Q12HR for HTN for 30 Days, #60 TAB Prasugrel (Effient) 10 Mg Tab 10 MG PO DAILY for Blood Clot Prevention, #30 TAB 0 Refills Zinc Sulfate (Orazinc) 220 Mg (50 Mg Zinc) Cap [Albuterol-Ipratropium Neb] () 1 AMPULE NEBU 1 AMPULE NEB Q4-6H PRN for SHORTNESS OF BREATH for 14 Days, #60 NEBULE Discontinued Medications: Insulin Detemir Inj (Levemir Inj) 1,000 unit/ 10 ML Vial 8 UNITS SQ DAILYAC for Blood Sugar Management, VIAL 0 Refills Do not mix with any other Insulin. Prednisone (Prednisone) 5 Mg Tab 5 MG PO BID for EBONY for 6 Days, #9 TAB take 5 mg po bid x 3 days then 5 mg po daily x 3 days then DC Timo Mobley MD Nov 04, 2017 12:14
--- NOTE | 2017-11-04 12:17 | HHI.FF ---
Face to Face Verification Diagnosis: (1) Dog bite of multiple sites of right lower extremity (2) Diabetes mellitus with peripheral vascular disease (3) Pleural effusion (4) CHF (congestive heart failure) (5) Stage 4 chronic kidney disease (6) CONOR (acute kidney injury) (7) Respiratory failure (8) Anemia (9) COPD (chronic obstructive pulmonary disease) (10) CAD (coronary artery disease) Physical Therapy Order: Evaluate and Treat, Improve ambulation, Strength and gait training Occupational Therapy Order: Evaluate and Treat, Improve ADL, Gross motor coordination, Fine motor coordination Home Health Nursing Order: Medical education CHF education Oxygen administration education Medication education-adverse effect Wound care and dressing changes Nursing assessment with vital signs Telehealth Home Health Aide Order: To Assist In: Bathing and personal care, pipe coverer and insulator and meal prep Costume Seamstress Order: To Evaluate: Living conditions/environment, Support services Order: To Provide: Long range planning, Community services I have seen patient Brinda Maynard on 11/04/17. My clinical findings support the need for the requested home health care services because: Ltd mobility - disease progression Patient has SOB Deconditioned w/ increased weakness Med compliance is questionable Limited ability to care for self Need for psychosocial assistance Impaired cognition/judgement High risk of falls I certify that my clinical findings support that this patient is homebound because: Impaired cognitive ability/safety Hx COPD- exertion dyspnea/weakness Unsteady gait/balance Unsafe to leave home unassisted Need for psychosocial assistance [id number] bed/chair Unable to use public transportation Poor cardiac reserve Timo Mobley MD Nov 04, 2017 12:17
--- NOTE | 2017-11-04 12:47 | HHI.FF ---
Face to Face Verification Diagnosis: (1) COPD (chronic obstructive pulmonary disease) (2) Stage 4 chronic kidney disease (3) CHF (congestive heart failure) (4) Pleural effusion Physical Therapy Order: Evaluate and Treat Home Health Nursing Order: Medical education Diabetic education CHF education Oxygen administration education Wound care and dressing changes Nursing assessment with vital signs Telehealth Instructions: Respiratory therapy I have seen patient Brinda Maynard on 11/04/17. My clinical findings support the need for the requested home health care services because: Ltd mobility - disease progression Patient has SOB Deconditioned w/ increased weakness I certify that my clinical findings support that this patient is homebound because: Unsteady gait/balance Unsafe to leave home unassisted Need for psychosocial assistance Uzma Prabhakar MD Nov 04, 2017 12:47
[2017-11-04] MEDS ORDERED: NOVOLOGSS SQ (13:08)
[2017-11-04] MEDS ORDERED: PRED5TAB PO (13:08)
[2017-11-04] MEDS ORDERED: OXYGEN NAS.CANULA (13:08)
[2017-11-04] MEDS ORDERED: LEVEMIR SQ (13:08)
[2017-11-04] MEDS ORDERED: NOVOLOGP2 SQ (13:08)
[2017-11-04] MEDS ORDERED: BUME2TAB PO (13:08)
[2017-11-04] MEDS ORDERED: ISOS60TA PO (13:08)
[2017-11-04] MEDS: CEFEPIME INJ 2,000 MG in SODIUM CHLORIDE 0.9% INJ 100 ML IV SCH (13:09)
[2017-11-04] MEDS: INSULIN DETEMIR 100 UNITS/ML VIAL SQ SCH ×2 (13:09)
--- NOTE | 2017-11-04 13:15 | PD.CARD.PN ---
Subjective Subjective Remarks No CP, mild SOB Objective Medications Current Medications Medications (Trade) Dose Ordered Sig/Marie Route Start Time Stop Time Status Last Admin (Aspirin Chew) 81 mg DAILY CHEW 10/27/17 09:00 11/04/17 08:48 (Bumetanide) 2 mg BID PO 10/27/17 09:00 Future Hold (Imdur) 60 mg DAILY@0700 PO 10/27/17 07:00 11/04/17 06:06 (Lopressor) 50 mg BID PO 10/27/17 09:00 11/04/17 09:02 (Procardia Xl) 60 mg Q12HR PO 10/27/17 09:00 11/04/17 08:47 (Effient) 10 mg DAILY PO 10/27/17 09:00 11/04/17 08:48 (NS Flush) 2 ml BID IV FLUSH 10/27/17 09:00 11/04/17 08:48 (NS Flush) 2 ml UNSCH PRN IV FLUSH 10/27/17 04:30 (Albuterol Neb) 2.5 mg Q2HR NEB PRN INH 10/27/17 04:30 (D50w (Vial) Inj) 50 ml UNSCH PRN IV PUSH 10/27/17 04:45 (Glucagon Inj) 1 mg UNSCH PRN OTHER 10/27/17 04:45 Cefepime HCl 2000 mg/Sodium Chloride 100 ml @ 200 mls/hr Q24H IV 10/27/17 12:00 11/05/17 21:00 11/04/17 13:09 (Zaroxolyn) 2.5 mg DAILY PO 10/28/17 09:00 11/04/17 08:47 (Heparin Inj) 5,000 units Q12H SQ 10/30/17 01:00 11/04/17 13:08 (NovoLOG SUPPLEMENTAL SCALE) 1 ACHS SLIDING SCALE SQ 10/31/17 08:00 11/03/17 17:31 (Levemir Inj) 15 units Q12H SQ 10/31/17 12:00 11/04/17 13:09 (Deltasone) 20 mg DAILY PO 11/05/17 09:00 (Bumetanide) 2 mg BID@09,18 PO 11/04/17 18:00 UNV Vital Signs / I&O Vital Signs Date Time Temp Pulse Resp B/P (MAP) Pulse Ox O2 Delivery O2 Flow Rate FiO2 11/04/17 11:00 56 11/04/17 10:00 82 11/04/17 09:09 98 Nasal Cannula 1.50 11/04/17 09:00 82 11/04/17 08:30 97 Nasal Cannula 2.00 11/04/17 08:30 97.6 81 18 132/79 (96) 97 11/04/17 08:00 56 11/04/17 07:06 57 11/04/17 06:00 57 11/04/17 05:00 82 11/04/17 04:00 82 11/04/17 03:20 98.6 83 18 143/65 (91) 98 11/04/17 03:00 81 11/04/17 02:00 89 11/04/17 01:00 84 11/04/17 00:00 84 11/03/17 23:55 98.6 85 18 162/80 (107) 98 11/03/17 23:00 59 11/03/17 22:29 Nasal Cannula 1.50 11/03/17 22:00 62 11/03/17 21:00 88 11/03/17 20:00 64 11/03/17 19:16 98 Nasal Cannula 2.00 11/03/17 19:16 98.6 65 18 166/81 (109) 98 11/03/17 19:00 66 11/03/17 18:00 89 11/03/17 17:00 79 11/03/17 16:00 88 11/03/17 15:00 84 11/03/17 15:00 98.3 94 18 136/75 (95) 96 11/03/17 14:00 89 I/O 11/03/17 11/03/17 11/03/17 11/04/17 11/04/17 11/04/17 07:00 15:00 23:00 07:00 15:00 23:00 Intake Total 480 ml 520 ml 330 ml Output Total 950 ml 1800 ml 1100 ml Balance -470 ml -1280 ml -770 ml Intake Oral 480 ml 520 ml 330 ml Output Urine Total 950 ml 1800 ml 1100 ml # Bowel Movements 1 1 Physical Exam GENERAL: In NAD SKIN: Warm and dry. HEAD: Normocephalic. EYES: No scleral icterus. No injection or drainage. NECK: Supple, trachea midline. No JVD or lymphadenopathy. CARDIOVASCULAR: Regular rate and rhythm without murmurs, gallops, or rubs. RESPIRATORY: Decreased BS at bases. No accessory muscle use. GASTROINTESTINAL: Abdomen soft, non-tender, nondistended. MUSCULOSKELETAL: No cyanosis, mild LE edema. Laboratory Laboratory Tests Test 11/04/17 04:50 White Blood Count 16.5 TH/MM3 Red Blood Count 3.73 MIL/MM3 Hemoglobin 11.1 GM/DL Hematocrit 33.1 % Mean Corpuscular Volume 88.9 FL Mean Corpuscular Hemoglobin 29.7 PG Mean Corpuscular Hemoglobin Concent 33.4 % Red Cell Distribution Width 14.5 % Platelet Count 245 TH/MM3 Mean Platelet Volume 8.7 FL Neutrophils (%) (Auto) 93.1 % Lymphocytes (%) (Auto) 3.7 % Monocytes (%) (Auto) 2.9 % Eosinophils (%) (Auto) 0.0 % Basophils (%) (Auto) 0.3 % Neutrophils # (Auto) 15.4 TH/MM3 Lymphocytes # (Auto) 0.6 TH/MM3 Monocytes # (Auto) 0.5 TH/MM3 Eosinophils # (Auto) 0.0 TH/MM3 Basophils # (Auto) 0.0 TH/MM3 CBC Comment DIFF FINAL Differential Comment Blood Urea Nitrogen 77 MG/DL Creatinine 2.15 MG/DL Random Glucose 155 MG/DL Calcium Level 8.6 MG/DL Sodium Level 140 MEQ/L Potassium Level 3.5 MEQ/L Chloride Level 104 MEQ/L Carbon Dioxide Level 26.5 MEQ/L Anion Gap 10 MEQ/L Estimat Glomerular Filtration Rate 23 ML/MIN Assessment and Plan Problem List: (1) Pleural effusion ICD Codes: J90 - Pleural effusion, not elsewhere classified (2) CHF (congestive heart failure) ICD Codes: I50.9 - Heart failure, unspecified (3) CONOR (acute kidney injury) ICD Codes: N17.9 - Acute kidney failure, unspecified Status: Acute (4) CAD (coronary artery disease) ICD Codes: I25.10 - Atherosclerotic heart disease of [place] coronary artery without angina pectoris Status: Chronic Assessment and Plan Continued improvement, less edema. Continue diuresis, closely monitor renal fx. Thoracentesis cx due to the need to continue anticoagulation. Increase activity. Anticipate discharge as planned. Will schedule outpatient cardiology f /u. Problem Qualifiers (1) CHF (congestive heart failure): Qualified Codes: I50.9 - Heart failure, unspecified Dunia Reddy MD Nov 04, 2017 13:15
--- NOTE | 2017-11-04 13:32 | HHI.PR ---
Addendum to Inpatient Note Additional Information I was told by the top case assembler yesterday that the patient had fired Dr. Mobley and I was requested to see this patient today. However Dr. Mobley is already seen the patient and discharge the patient. I discussed the patient with him apparently she is going home with home health care. Uzma Prabhakar MD Nov 04, 2017 13:32
--- NOTE | 2017-11-04 13:54 | HHI.NPPN ---
Subjective General Problems: Anemia, Edema, Hypertension Renal Failure: Chronic, Acute, Stage IV History of Present Illness 66-year-old female known to me from before with past medical history of ischemic heart disease, chronic obstructive pulmonary disease, hypertension, chronic kidney disease with diastolic dysfunction, congestive heart failure, history of edema in the legs came to the hospital with complaint of worsening shortness of breath and increased swelling of the legs. I was called to see the patient because of elevated BUN and creatinine. Additional Remarks Patient is alert, breathing is better, not in distress. Review of Systems General Constitutional: Fatigue Respiratory Lungs: SOB, Cough, Wheeze Cardiovascular Cardiac: Edema, KAMARA Objective Data Data Vital Signs Date Time Temp Pulse Resp B/P (MAP) Pulse Ox O2 Delivery O2 Flow Rate FiO2 11/04/17 11:00 56 11/04/17 10:00 82 11/04/17 09:09 98 Nasal Cannula 1.50 11/04/17 09:00 82 11/04/17 08:30 97 Nasal Cannula 2.00 11/04/17 08:30 97.6 81 18 132/79 (96) 97 11/04/17 08:00 56 11/04/17 07:06 57 11/04/17 06:00 57 11/04/17 05:00 82 11/04/17 04:00 82 11/04/17 03:20 98.6 83 18 143/65 (91) 98 11/04/17 03:00 81 11/04/17 02:00 89 11/04/17 01:00 84 11/04/17 00:00 84 11/03/17 23:55 98.6 85 18 162/80 (107) 98 11/03/17 23:00 59 11/03/17 22:29 Nasal Cannula 1.50 11/03/17 22:00 62 11/03/17 21:00 88 11/03/17 20:00 64 11/03/17 19:16 98 Nasal Cannula 2.00 11/03/17 19:16 98.6 65 18 166/81 (109) 98 11/03/17 19:00 66 11/03/17 18:00 89 11/03/17 17:00 79 11/03/17 16:00 88 11/03/17 15:00 84 11/03/17 15:00 98.3 94 18 136/75 (95) 96 11/03/17 14:00 89 -: 11/04/17 0450 11/04/17 0450 Physical Exam General Appearance: No Acute Distress, Comfortable Eyes Eye Exam: Pupils Equal Throat Throat Exam: Oral Mucosa [place] & Moist Neck Neck Exam: Neck Supple Pulmonary Resp Exam: Crackles, Rhonchi, Sputum, Decreased Bases, Diminished Breath Sounds Cardiology CV Exam: Regular, Normal Sinus Rhythm Gastrointestinal/Abdomen GI Exam: Soft, Non-Tender, Bowel Sounds Present, Non-Distended Extremeties Extremities Exam: Moderate Edema, Pitting Edema, Dependent Edema Extremeties Remarks Rt. lower leg with the dressing. Neurologic Neuro Exam: Alert, Awake, Oriented Assessment/Plan Assessment Summary: CONOR/Acute Renal Failure, Fluid/Volume Overload, Hypertension, CKD Stage IV Electrolyte Assessment: Hyperkalemia Problem List: (1) CAD (coronary artery disease) ICD Codes: I25.10 - Atherosclerotic heart disease of [place] coronary artery without angina pectoris Status: Chronic (2) COPD (chronic obstructive pulmonary disease) ICD Codes: J44.9 - Chronic obstructive pulmonary disease, unspecified Status: Chronic (3) Anemia ICD Codes: D64.9 - Anemia, unspecified Status: Chronic (4) Dog bite of multiple sites of right lower extremity ICD Codes: S81.851A - Open bite, right lower leg, initial encounter; W54.0XXA - Bitten by dog, initial encounter Status: Chronic (5) Respiratory failure ICD Codes: J96.90 - Respiratory failure, unspecified, unspecified whether with hypoxia or hypercapnia (6) Stage 4 chronic kidney disease ICD Codes: N18.4 - Chronic kidney disease, stage 4 (severe) (7) CONOR (acute kidney injury) ICD Codes: N17.9 - Acute kidney failure, unspecified Status: Acute Plan Patient has stage 4 chronic kidney disease. Also develop CONOR. Has generalized anasarca and resp. failure. On Lasix and Metolazone. Urine out put is better. Told to restrict oral fluid intake. Continue diuretics and follow BMP. Creatinine is now 2.2, Continue diuretics. Edema is improving. Started on PT. Flavio Toro MD Nov 04, 2017 13:54
--- NOTE | 2017-11-04 17:20 | HHI.PR ---
Subjective Remarks 66 YO WF with SOB,CHF,Pl eff,CAD Breathing much better On 2.5 LNC No new complaint Objective Vital Signs Vital Signs Date Time Temp Pulse Resp B/P (MAP) Pulse Ox O2 Delivery O2 Flow Rate FiO2 11/04/17 12:00 98.3 61 18 149/74 (99) 95 11/04/17 11:00 56 11/04/17 10:00 82 11/04/17 09:09 98 Nasal Cannula 1.50 11/04/17 09:00 82 11/04/17 08:30 97 Nasal Cannula 2.00 11/04/17 08:30 97.6 81 18 132/79 (96) 97 11/04/17 08:00 56 11/04/17 07:06 57 11/04/17 06:00 57 11/04/17 05:00 82 11/04/17 04:00 82 11/04/17 03:20 98.6 83 18 143/65 (91) 98 11/04/17 03:00 81 11/04/17 02:00 89 11/04/17 01:00 84 11/04/17 00:00 84 11/03/17 23:55 98.6 85 18 162/80 (107) 98 11/03/17 23:00 59 11/03/17 22:29 Nasal Cannula 1.50 11/03/17 22:00 62 11/03/17 21:00 88 11/03/17 20:00 64 11/03/17 19:16 98 Nasal Cannula 2.00 11/03/17 19:16 98.6 65 18 166/81 (109) 98 11/03/17 19:00 66 11/03/17 18:00 89 I/O 11/03/17 11/03/17 11/03/17 11/04/17 11/04/17 11/04/17 07:00 15:00 23:00 07:00 15:00 23:00 Intake Total 480 ml 520 ml 330 ml Output Total 950 ml 1800 ml 1100 ml Balance -470 ml -1280 ml -770 ml Intake Oral 480 ml 520 ml 330 ml Output Urine Total 950 ml 1800 ml 1100 ml # Bowel Movements 1 1 Result Diagram: 11/04/1744911/04/17 045 Objective Remarks GENERAL: Obese WF mild sob SKIN: Warm and dry. HEAD: Normocephalic. EYES: No scleral icterus. No injection or drainage. NECK: Supple, trachea midline. No JVD or lymphadenopathy. CARDIOVASCULAR: Regular rate and rhythm without murmurs, gallops, or rubs. RESPIRATORY: Breath sounds equal bilaterally. No accessory muscle use. GASTROINTESTINAL: Abdomen soft, non-tender, nondistended. MUSCULOSKELETAL: No cyanosis, ++ edema. BACK: Nontender without obvious deformity. No CVA tenderness. A/P Assessment and Plan Dysnoea, improving Hypoxia CHF Pleural effusion COPD Obesity CAD, s/p WENDI PLAN: Diurease Aerosol nebs Supplement 02 Monitor renal functions DC plans for home with C Will FU in office Aaron Blankenship MD Nov 04, 2017 17:20
[2017-11-04] MEDS ORDERED: BUMETANIDE 1 MG TAB PO SCH (18:00)
[2017-11-05] MEDS ORDERED: predniSONE 20 MG TAB PO SCH (09:00)
== END 2017-11-04 17:30 | disposition home health service (06) | DRG 291 ==
LOC: NEPC 01:49 → NEDA 04:02 → HCVI 06:15 → HCIS 10:05
PROVIDERS: ADMIT Family Medicine; ATTEND Family Medicine
PROC: 30233N1 Transfusion of Nonautologous Red Blood Cells into Peripheral Vein, Percutaneous Approach (ICD-10-PCS; principal; 2017-10-27)
DX: I13.0 Hypertensive heart and chronic kidney disease with heart failure and stage 1 through stage 4 chronic kidney disease, or unspecified chronic kidney disease (principal); J96.91 Respiratory failure, unspecified with hypoxia; E87.2 Acidosis; N17.9 Acute kidney failure, unspecified; I50.33 Acute on chronic diastolic (congestive) heart failure; J44.1 Chronic obstructive pulmonary disease with (acute) exacerbation; N39.0 Urinary tract infection, site not specified; L97.919 Non-pressure chronic ulcer of unspecified part of right lower leg with unspecified severity; J98.11 Atelectasis; N18.4 Chronic kidney disease, stage 4 (severe); E11.22 Type 2 diabetes mellitus with diabetic chronic kidney disease; D64.9 Anemia, unspecified; E87.5 Hyperkalemia; D50.9 Iron deficiency anemia, unspecified; M19.90 Unspecified osteoarthritis, unspecified site; I25.10 Atherosclerotic heart disease of native coronary artery without angina pectoris; E11.51 Type 2 diabetes mellitus with diabetic peripheral angiopathy without gangrene; E66.9 Obesity, unspecified; E78.5 Hyperlipidemia, unspecified; K21.9 Gastro-esophageal reflux disease without esophagitis; I25.2 Old myocardial infarction; W54.0XXS Bitten by dog, sequela; Z68.34 Body mass index [BMI] 34.0-34.9, adult; Z79.01 Long term (current) use of anticoagulants; Z74.01 Bed confinement status; Z79.4 Long term (current) use of insulin; Z87.891 Personal history of nicotine dependence; Z95.5 Presence of coronary angioplasty implant and graft; Z99.81 Dependence on supplemental oxygen
CPT/HCPCS: 36430; 36600; 51702; 71010; 71020; 76937; 78582; 80048; 80053; 81001; 82550; 82552; 82805; 82948; 83735; 83880; 84100; 84484; 85025; 85610; 85730; 86850; 86900; 86901; 86920; 87086; 93005; 94150; 94640; 94664; 96374; 96375; A9540; A9567; J0456; J0692; J0696; J1644; J1815; J1940; J2920; J2930; J7050; J7512; P9016

== ENCOUNTER 2017-11-09 14:40 | Observation (INO) | payer MEDICARE, BC ==
[~2017-11-09] VITALS: Ht 162.6 cm; Wt 85.0 kg
[~2017-11-09 14:40] MED LIST changes: +ATOR40TA16 PO; +BUME2TAB PO; +FURO1TAB60 PO; -FURO40TA PO; +IPRA0.02 NEB; +IPRASOL INH; +METO2.5T PO; -METO5TAB3 PO; +NEBUKIT5; -NOVOLOGP2 SQ; +OXYGEN NAS.CANULA; +TYLE325T PO; +[UNRECOGNIZED DRUG - CODE] PO
[2017-11-09 14:45] VITALS: BP 133/63; PULSE 51; RESP 18; TEMP 98.1; O2SAT 94
[2017-11-09] MEDS ORDERED: MORPHINE SULFATE 4 MG/ML INJ IV PUSH ONE (15:00)
[2017-11-09] MEDS ORDERED: SODIUM CHLORIDE 0.9% FLUSH 10 ML FLUSH IV FLUSH PRN ×2 (15:00→19:00)
[2017-11-09] MEDS ORDERED: ONDANSETRON HCL 4 MG/2 ML VIAL IVP ONE (15:00)
--- NOTE | 2017-11-09 15:07 | PD ---
HPI Chief Complaint: General Weakness Time Seen by Provider: 14:48 Travel History International Travel<30 days: No Contact w/Intl Traveler<30days: No Traveled to known affect area: No History of Present Illness HPI 66-year-old female presents to the emergency department for evaluation of diarrhea. Patient arrived via EMS. She states she has a history of C. difficile diarrhea in the spring of last year. She is was recently just discharged from here on November 04, 2017. She was on antibiotics. She states for the last 5 days, she has had continuous osmole he diarrhea consistent with her previous episode of C. difficile. Patient also reports lower abdominal pain , 9 out of 10, nonradiating, constant, throbbing, sharp. Patient reports history of CHF, CKD, CAD COPD, diabetes, hypertension, GERD, bone marrow suppression, chronic right lower extremity ulcer secondary to a dog bite. Patient denies any fevers or chills. She denies any chest pain or shortness of breath. Patient denies any nausea or vomiting. She states that her family members have wiped her, they've noticed some small amount of blood on the toilet paper. Patient reports increased weakness due to diarrhea. She states she saw her primary care physician yesterday who sent her for an outpatient stool sample. However, she has not yet been able to return this. Moderate severity. No exacerbating or alleviating factors. PFSH Past Medical History Hx Anticoagulant Therapy: Yes (ASPIRIN ) Anemia: Yes (iron deficiency) Arthritis: Yes Asthma: Yes Anxiety: No Depression: No Heart Rhythm Problems: No Cancer: No Cardiovascular Problems: Yes High Cholesterol: No Chemotherapy: No Chest Pain: No Congestive Heart Failure: Yes COPD: Yes Cerebrovascular Accident: No Coronary Artery Disease: Yes Diabetes: Yes Diminished Hearing: No Endocrine: No Gastrointestinal Disorders: Yes GERD: No Genitourinary: Yes Headaches: No Hepatitis: No Hiatal Hernia: Yes Hypertension: Yes Immune Disorder: No Implanted Vascular Access Dvce: No Kidney Stones: No Musculoskeletal: Yes Neurologic: Yes Psychiatric: No Reproductive: Yes Respiratory: Yes Immunizations Current: Yes Migraines: Yes Myocardial Infarction: Yes Radiation Therapy: No Renal Failure: No Seizures: No Sleep Apnea: No Thyroid Disease: No Ulcer: No Menopausal: Yes : 1 Para: 1 Miscarriage: 0 Past Surgical History Abdominal Surgery: Yes (APPENDECTOMY) AICD: No Appendectomy: Yes Body Medical Devices: CARDIAC STENTS X3 Cardiac Surgery: Yes (STENT PLACEMENT) Section: Yes Coronary Stent: Yes Ear Surgery: No Endocrine Surgery: No Eye Surgery: No Genitourinary Surgery: No Gynecologic Surgery: Yes (HYSTERECTOMY) Hysterectomy: Yes Neurologic Surgery: No Oral Surgery: Yes (TONSILS) Pacemaker: No Thoracic Surgery: No Tonsillectomy: Yes (ADENOIDS) Other Surgery: Yes (LEFT WRIST GANGLION CYST) Social History Alcohol Use: No Tobacco Use: No (QUIT 2001) Substance Use: Yes (SMOKES MARIJUANA DAILY WHEN HOME) Allergies-Medications (Allergen,Severity, Reaction): Coded Allergies: propoxyphene (Verified Allergy, Mild, RASH, 11/09/17) Reported Meds & Prescriptions Reported Meds & Active Scripts Active Atorvastatin (Atorvastatin Calcium) 40 Mg Tab 40 Mg PO HS Metolazone 2.5 Mg Tab 2.5 Mg PO DAILY Duoneb (Ipratropium-Albuterol Neb) 0.5-2.5 Mg/3 Ml Neb 1 Nebule INH Q4HR NEB Oxygen (O2) (Miscellaneous Medication) Inha Liter CRISS.CANULA CONTINUOUS Oxygen Concentrator Portable Gaseous 2 L/min via Nasal Canula Continuous For 99 months Levemir Inj (Insulin Detemir) 1,000 unit/ 10 ML Vial 15 Units SQ Q12H 30 Days Do not mix with any other Insulin. Bumetanide 2 Mg Tab 2 Mg PO BID Isosorbide Mononitrate ER (Isosorbide Mononitrate) 60 Mg Tab 60 Mg PO DAILY Novolog Inj (Insulin Aspart) 100 Unit/Ml Inj 1 Units SQ ACHS SLIDING SCALE 30 Days Sliding Scale As Directed.150-199 1 Unit; 200-249 3 units; 250-299 5 Units; 300-349 7 Units; Nifedipine ER 24 HR (Nifedipine) 60 Mg Tab 60 Mg PO Q12HR 30 Days Reported Lasix (Furosemide) 40 Mg Tab 40 Mg PO DAILY Tylenol (Acetaminophen) 325 Mg Tab 325 Mg PO Q4H PRN Orazinc (Zinc Sulfate) 220 Mg (50 Mg Zinc) Cap 220 Mg PO DAILY Metoprolol Tartrate 50 Mg Tab 50 Mg PO BID Effient (Prasugrel) 10 Mg Tab 10 Mg PO DAILY Aspirin 81 Mg Chew 81 Mg CHEW DAILY Review of Systems Except as stated in HPI: all other systems reviewed are Neg Physical Exam Narrative GENERAL: Well-nourished, well-developed female patient, afebrile. SKIN: Focused skin assessment warm/dry. HEAD: Normocephalic. Atraumatic. EYES: No scleral icterus. No injection or drainage. NECK: Supple, trachea midline. No JVD or lymphadenopathy. CARDIOVASCULAR: Regular rate and rhythm without murmurs, gallops, or rubs. RESPIRATORY: Breath sounds equal bilaterally. No accessory muscle use. Lungs sounds are clear to auscultation. GASTROINTESTINAL: Abdomen soft and nondistended. Patient has lower abdominal tenderness to palpation. MUSCULOSKELETAL: No cyanosis, or edema. BACK: Nontender without obvious deformity. No CVA tenderness. Data Data Last Documented VS Vital Signs Date Time Temp Pulse Resp B/P (MAP) Pulse Ox O2 Delivery O2 Flow Rate FiO2 11/09/17 17:06 50 15 157/66 (96) 99 Nasal Cannula 2.00 11/09/17 16:25 97.9 Orders Orders Complete Blood Count With Diff (11/09/17 14:56) Comprehensive Metabolic Panel (11/09/17 14:56) Lipase (11/09/17 14:56) Prothrombin Time / Inr (Pt) (11/09/17 14:56) Act Partial Throm Time (Ptt) (11/09/17 14:56) Iv Access Insert/Monitor (11/09/17 14:56) Ecg Monitoring (11/09/17 14:56) Oximetry (11/09/17 14:56) Morphine Inj (Morphine Inj) (11/09/17 15:00) Ondansetron Inj (Zofran Inj) (11/09/17 15:00) Sodium Chloride 0.9% Flush (Ns Flush) (11/09/17 15:00) Electrocardiogram (11/09/17 14:56) C Diff Toxin Pcr (11/09/17 14:56) Ct Abd/Pel W/O Iv Contrast (11/09/17 ) Urinalysis - C+S If Indicated (11/09/17 15:07) Metronidazole 500 Mg Inj (Flagyl 500 Mg (11/09/17 18:45) Labs Laboratory Tests Test 11/09/17 15:00 11/09/17 15:35 White Blood Count 13.8 TH/MM3 Red Blood Count 3.25 MIL/MM3 Hemoglobin 9.7 GM/DL Hematocrit 29.3 % Mean Corpuscular Volume 90.1 FL Mean Corpuscular Hemoglobin 29.7 PG Mean Corpuscular Hemoglobin Concent 33.0 % Red Cell Distribution Width 14.8 % Platelet Count 252 TH/MM3 Mean Platelet Volume 8.7 FL Neutrophils (%) (Auto) 94.1 % Lymphocytes (%) (Auto) 3.7 % Monocytes (%) (Auto) 1.9 % Eosinophils (%) (Auto) 0.1 % Basophils (%) (Auto) 0.2 % Neutrophils # (Auto) 13.0 TH/MM3 Lymphocytes # (Auto) 0.5 TH/MM3 Monocytes # (Auto) 0.3 TH/MM3 Eosinophils # (Auto) 0.0 TH/MM3 Basophils # (Auto) 0.0 TH/MM3 CBC Comment DIFF FINAL Differential Comment Prothrombin Time 9.7 SEC Prothromb Time International Ratio 1.0 RATIO Activated Partial Thromboplast Time 24.3 SEC Blood Urea Nitrogen 52 MG/DL Creatinine 1.66 MG/DL Random Glucose 87 MG/DL Total Protein 4.9 GM/DL Albumin 1.7 GM/DL Calcium Level 8.6 MG/DL Alkaline Phosphatase 112 U/L Aspartate Amino Transf (AST/SGOT) 21 U/L Alanine Aminotransferase (ALT/SGPT) 22 U/L Total Bilirubin 0.2 MG/DL Sodium Level 143 MEQ/L Potassium Level 3.2 MEQ/L Chloride Level 109 MEQ/L Carbon Dioxide Level 26.5 MEQ/L Anion Gap 8 MEQ/L Estimat Glomerular Filtration Rate 31 ML/MIN Lipase 59 U/L Urine Color YELLOW Urine Turbidity HAZY Urine pH 6.0 Urine Specific [place] 1.017 Urine Protein 300 mg/dL Urine Glucose (UA) TRACE mg/dL Urine Ketones NEG mg/dL Urine Occult Blood MOD Urine Nitrite NEG Urine Bilirubin NEG Urine Urobilinogen LESS THAN 2.0 MG/DL Urine Leukocyte Esterase NEG Urine RBC 2 /hpf Urine WBC 6 /hpf Urine Squamous Epithelial Cells 2 /hpf Urine Transitional Epithelial Cells 1 /hpf Urine Amorphous Sediment FEW Urine Bacteria OCC /hpf Urine Hyaline Casts 3 /lpf Microscopic Urinalysis Comment CULT NOT INDICATED MDM Medical Decision Making Medical Screen Exam Complete: Yes Emergency Medical Condition: Yes Medical Record Reviewed: Yes Interpretation(s) Last Impressions Abdomen/Pelvis CT 11/09/17 0000 Signed Impressions: Service Date/Time: Jonna, November 09, 2017 17:50 - CONCLUSION: 1. There is diffuse mural thickening of the colon, especially on the left side characteristic of a mild colitis. 2. Moderate bilateral pleural effusions with compressive atelectasis in both lungs. 3. Severe anasarca. 4. No bowel obstruction. Amadou Salazar MD Differential Diagnosis C-diff diarrhea vs. colitis vs. gastroenteritis vs. electrolyte abnormality Narrative Course 66 year old female presents to the emergency department for evaluation for diarrhea for the past 5 days since being discharged from the hospital. She reports history of c-diff with similar symptoms. EKG shows sinus bradycardia, HR 51, no acute ST changes. CBC, CMP, lipase, PTT, PT/INR, UA, stool for C- diff are ordered and pending. Ct abdomen/pelvis without IV contrast is ordered and pending. Patient is given Morphine 4 mg IV, Zofran 4 mg IV. CBC shows leukocytosis 13.8, hemoglobin 9.7, hematocrit 29.3. CMP shows BUN 52 , creatinine 1.66, potassium 3.2. Lipase is 59. Coags show no acute abnormality. UA shows 6 WBC, occasional bacteria. Stool is pending. CT abdomen/pelvis shows diffuse mural thickening of the colon, especially in the left side, characteristic of a mild colitis, moderate bilateral pleural effusions with compressive atelectasis in both lungs, severe anasarca, no bowel obstruction. Patient started on Flagyl 500 mg IV. Ciprofloxacin was deferred until C. difficile returns. I discussed admission with the patient. She states she feels too weak to go home and would like he does not feel comfortable going home at this time. Hospital's is paged for admission. Dr. Garcia accepted admission. Diagnosis Primary Impression: Colitis Additional Impressions: Abdominal pain Qualified Codes: R10.30 - Lower abdominal pain, unspecified Generalized weakness Anasarca Admitting Information Admitting Physician Requests: Kerry Pollock Nov 09, 2017 15:07
[2017-11-09 16:18] LABS: BASOPHIL % 0.2 % (0.0-2.0); EOSINOPHIL % 0.1 % (0.0-4.0); HEMATOCRIT 29.3 % (35.0-46.0); HEMO FLAGS DIFF FINAL; LYMPH % 3.7 % (9.0-44.0); LYMPHOCYTE # 0.5 TH/MM3 (1.0-4.8); MEAN CELL VOLUME 90.1 FL (80.0-100.0); MEAN CORPUSCULAR HEMOGLOBIN 29.7 PG (27.0-34.0); MONO % 1.9 % (0.0-8.0); NEUT % 94.1 % (16.0-70.0); PLATELET COUNT 252 TH/MM3 (150-450); RED BLOOD COUNT 3.25 MIL/MM3 (4.00-5.30); RED CELL DISTRIBUTION WIDTH 14.8 % (11.6-17.2); WHITE BLOOD COUNT 13.8 TH/MM3 (4.0-11.0)
[2017-11-09 16:25] VITALS: BP 142/67; PULSE 48; RESP 17; TEMP 97.9; O2SAT 94
[2017-11-09 16:29] LABS: APTT (PATIENT) 24.3 SEC (24.3-30.1); PROTHROMBIN TIME - PATIENT 9.7 SEC (9.8-11.6)
[2017-11-09 16:31] LABS: BACTERIA, URINE OCC /hpf; BLOOD, URINE MOD (NEG); COMMENT (UR) CULT NOT INDICATED; CULTURE IF INDICATED CULT NOT INDICATED; GLUCOSE,URINE TRACE mg/dL (NEG); HYALINE CAST, URINE 3 /lpf (RARE); KETONE, URINE NEG (NEG); NITRITE,URINE NEG (NEG); SQUAMOUS EPITHELIAL CELL URINE 2 /hpf (0-5); TRANSITIONAL EPI CELLS, URINE 1 /hpf; URINE COLOR YELLOW (YELLW/STRAW)
[2017-11-09 16:43] LABS: ANION GAP 8 MEQ/L (5-15); AST (GOT) 21 U/L (15-37); BICARBONATE 26.5 MEQ/L (21.0-32.0); BLOOD UREA NITROGEN 52 MG/DL (7-18); CHLORIDE 109 MEQ/L (98-107); GLOMERULAR FILTRATION RATE 31 ML/MIN (>89); POTASSIUM 3.2 MEQ/L (3.5-5.1); SODIUM (NA) 143 MEQ/L (136-145)
[2017-11-09 16:44] LABS: ALT (GPT) 22 U/L (10-53)
[2017-11-09 16:46] LABS: ALKALINE PHOSPHATASE 112 U/L (45-117); TOTAL BILIRUBIN ADULT 0.2 MG/DL (0.2-1.0)
[2017-11-09 17:06] VITALS: BP 157/66; PULSE 50; RESP 15; O2SAT 99
--- NOTE | 2017-11-09 18:21 | RADRPT ---
EXAM DATE/TIME: 11/09/2017 17:50 [facility] COMPARISON: No previous studies available for comparison. INDICATIONS : Diarrhea and generalized weakness. ORAL CONTRAST: No oral contrast ingested. RADIATION DOSE: 9.3 CTDIvol (mGy) MEDICAL HISTORY : Renal disease, end stage. Diabetes mellitus type 2. Chronic obstructive pulmonary disease. SURGICAL HISTORY : Appendectomy. Hysterectomy. ENCOUNTER: Initial ACUITY: 1 day PAIN SCALE: 0/10 LOCATION: Bilateral lower quadrant TECHNIQUE: Volumetric scanning of the abdomen and pelvis was performed. Using automated exposure control and ad justment of the mA and/or kV according to patient size, radiation dose was kept as low as reasonably achievable to obtain optimal diagnostic quality images. DICOM format image data is available electro nically for review and comparison. FINDINGS: There are moderate bilateral pleural effusions with compressive atelectasis at both lung bases. Moder ate coronary calcifications. There is mural thickening of the colon especially the left colon are characteristic of a mild colitis . No acute findings in the liver, spleen, pancreas. Atrophic kidneys. 3.7 cm partially calcified left a drenal mass stable since February. Severe anasarca. Small amount of free fluid in the abdomen and pelvis . No free air. No bowel obstruction. CONCLUSION: 1. There is diffuse mural thickening of the colon, especially on the left side characteristic of a mi ld colitis. 2. Moderate bilateral pleural effusions with compressive atelectasis in both lungs. 3. Severe anasarca. 4. No bowel obstruction. Amadou Salazar MD on November 09, 2017 at 18:14 Board Certified Radiologist. This report was verified electronically.
[2017-11-09] MEDS ORDERED: metroNIDAZOLE 500 MG INJ 100 ML IV ONE (18:45)
[2017-11-09] MEDS ORDERED: NALOXONE HCL 0.4 MG/ML AMP IV PUSH PRN (19:00)
[2017-11-09] MEDS ORDERED: POTASSIUM CHLORIDE 25 MEQ EFFERVESCENT TAB PO ONE (19:00)
[2017-11-09] MEDS ORDERED: DEXTROSE 50% IN WATER 50 ML VIAL(D50) IV PUSH PRN ×2 (19:15→20:00)
[2017-11-09] MEDS ORDERED: GLUCAGON 1 MG/ML VIAL OTHER PRN ×2 (19:15→20:00)
[2017-11-09 19:31] LABS: C. DIFF EPI 027 PRESUMPTIVE POSITIVE (NEGATIVE)
[2017-11-09] MEDS ORDERED: POTASSIUM CHLORIDE 20 MEQ CONTROLLED RELEASE TAB PO ONE (19:45)
[2017-11-09] MEDS ORDERED: RESP: ALBUTEROL 2.5 MG/IPRATROPIUM 0.5 MG NEB (PRN) NEB (19:45)
--- NOTE | 2017-11-09 19:48 | HHI.HP ---
[facility] Primary Care Physician NICHOLAS Claire Admission Diagnosis colitis, abdominal pain, generalized weakness Diagnoses: Travel History International Travel<30 Days: No Contact w/Intl Traveler <30 Da: No Traveled to Known Affected Are: No History of Present Illness 66-year-old female with a past medical history significant for COPD on 2L nc at home, CHF (ECHO showed EF of 60-65% on 08/11/17), CKD, hypertension, hyperlipidemia and insulin-dependent diabetes mellitus presents to the hospital with abdominal pain and diarrhea. The patient was discharged from [facility] [place] on where she was treated for respiratory failure with COPD and CHF exacerbations. The patient has a past medical history significant for C. difficile last spring, status post treatment with by mouth vancomycin. She reports abdominal pain and diarrhea since . States she has diarrhea approximately 10 times per day with accompanying fecal incontinence. CT of the abdomen/pelvis shows mild colitis with moderate bilateral pleural effusions and severe anasarca. She has a leukocytosis of 13.8, creatinine 1.66 with a baseline of 2.2. The patient reports that her anasarca/bilateral lower extremity edema is stable. She denies any shortness of breath or chest pain. Review of Systems Denies fever or chills Denies blurry vision, otorrhea, rhinorrhea Denies sore throat and cough No chest pain, palpitations, shortness of breath Positive abdominal pain Denies constipation/diarrhea/vomiting. Positive nausea. Denies muscle pain/weakness No rashes Past Family Social History Past Medical History CHF CK D Hypertension Hyperlipidemia Insulin-dependent diabetes mellitus Osteoporosis Past Surgical History Hysterectomy Laminectomy at L5 Tonsillectomy Reported Medications Reported Meds & Active Scripts Active Atorvastatin (Atorvastatin Calcium) 40 Mg Tab 40 Mg PO HS Metolazone 2.5 Mg Tab 2.5 Mg PO DAILY Duoneb (Ipratropium-Albuterol Neb) 0.5-2.5 Mg/3 Ml Neb 1 Nebule INH Q4HR NEB Oxygen (O2) (Miscellaneous Medication) Inha Liter CRISS.CANULA CONTINUOUS Oxygen Concentrator Portable Gaseous 2 L/min via Nasal Canula Continuous For 99 months Levemir Inj (Insulin Detemir) 1,000 unit/ 10 ML Vial 15 Units SQ Q12H 30 Days Do not mix with any other Insulin. Bumetanide 2 Mg Tab 2 Mg PO BID Isosorbide Mononitrate ER (Isosorbide Mononitrate) 60 Mg Tab 60 Mg PO DAILY Novolog Inj (Insulin Aspart) 100 Unit/Ml Inj 1 Units SQ ACHS SLIDING SCALE 30 Days Sliding Scale As Directed.150-199 1 Unit; 200-249 3 units; 250-299 5 Units; 300-349 7 Units; Nifedipine ER 24 HR (Nifedipine) 60 Mg Tab 60 Mg PO Q12HR 30 Days Reported Lasix (Furosemide) 40 Mg Tab 40 Mg PO DAILY Tylenol (Acetaminophen) 325 Mg Tab 325 Mg PO Q4H PRN Orazinc (Zinc Sulfate) 220 Mg (50 Mg Zinc) Cap 220 Mg PO DAILY Metoprolol Tartrate 50 Mg Tab 50 Mg PO BID Effient (Prasugrel) 10 Mg Tab 10 Mg PO DAILY Aspirin 81 Mg Chew 81 Mg CHEW DAILY Allergies: Coded Allergies: propoxyphene (Verified Allergy, Mild, RASH, 11/09/17) Family History Mother with MS, CAD Social History Smoking 15 years ago. Has a 18-ateu-vyuy history of smoking. Denies alcohol. Last marijuana use in the spring. Denies other illicit drugs. Physical Exam Vital Signs Vital Signs Date Time Temp Pulse Resp B/P (MAP) Pulse Ox O2 Delivery O2 Flow Rate FiO2 11/09/17 17:06 50 15 157/66 (96) 99 Nasal Cannula 2.00 11/09/17 16:25 97.9 48 17 142/67 (92) 94 Room Air 11/09/17 14:45 98.1 51 18 133/63 (86) 94 Physical Exam GENERAL: Disheveled, female lying in bed SKIN: No rashes, ecchymoses or lesions. Cool and dry. HEAD: Atraumatic. Normocephalic. No temporal or scalp tenderness. EYES: Pupils equal round and reactive. Extraocular motions intact. No scleral icterus. No injection or drainage. ENT: Nose without bleeding, purulent drainage or septal hematoma. Throat without erythema, tonsillar hypertrophy or exudate. Uvula midline. Airway patent. NECK: Trachea midline. No JVD or lymphadenopathy. Supple, nontender, no meningeal signs. CARDIOVASCULAR: Regular rate and rhythm without murmurs, gallops, or rubs. RESPIRATORY: Clear to auscultation. Breath sounds equal bilaterally. No wheezes , rales, or rhonchi. GASTROINTESTINAL: Abdomen soft, diffusely tender, nondistended. No hepato- splenomegaly, or palpable masses. No guarding. Anasarca. MUSCULOSKELETAL: No calf tenderness. Bilateral 2+ pitting edema to the thighs. NEUROLOGICAL: Awake and alert. Cranial nerves II through XII intact. Motor and sensory grossly within normal limits. Normal speech. Laboratory Laboratory Tests Test 11/09/17 15:00 11/09/17 15:35 White Blood Count 13.8 Red Blood Count 3.25 Hemoglobin 9.7 Hematocrit 29.3 Mean Corpuscular Volume 90.1 Mean Corpuscular Hemoglobin 29.7 Mean Corpuscular Hemoglobin Concent 33.0 Red Cell Distribution Width 14.8 Platelet Count 252 Mean Platelet Volume 8.7 Neutrophils (%) (Auto) 94.1 Lymphocytes (%) (Auto) 3.7 Monocytes (%) (Auto) 1.9 Eosinophils (%) (Auto) 0.1 Basophils (%) (Auto) 0.2 Neutrophils # (Auto) 13.0 Lymphocytes # (Auto) 0.5 Monocytes # (Auto) 0.3 Eosinophils # (Auto) 0.0 Basophils # (Auto) 0.0 CBC Comment DIFF FINAL Differential Comment Prothrombin Time 9.7 Prothromb Time International Ratio 1.0 Activated Partial Thromboplast Time 24.3 Blood Urea Nitrogen 52 Creatinine 1.66 Random Glucose 87 Total Protein 4.9 Albumin 1.7 Calcium Level 8.6 Alkaline Phosphatase 112 Aspartate Amino Transf (AST/SGOT) 21 Alanine Aminotransferase (ALT/SGPT) 22 Total Bilirubin 0.2 Sodium Level 143 Potassium Level 3.2 Chloride Level 109 Carbon Dioxide Level 26.5 Anion Gap 8 Estimat Glomerular Filtration Rate 31 Lipase 59 Urine Color YELLOW Urine Turbidity HAZY Urine pH 6.0 Urine Specific [place] 1.017 Urine Protein 300 Urine Glucose (UA) TRACE Urine Ketones NEG Urine Occult Blood MOD Urine Nitrite NEG Urine Bilirubin NEG Urine Urobilinogen LESS THAN 2.0 Urine Leukocyte Esterase NEG Urine RBC 2 Urine WBC 6 Urine Squamous Epithelial Cells 2 Urine Transitional Epithelial Cells 1 Urine Amorphous Sediment FEW Urine Bacteria OCC Urine Hyaline Casts 3 Microscopic Urinalysis Comment CULT NOT INDICATED Result Diagram: 11/09/17 1500 11/09/17 1500 Caprini VTE Risk Assessment Caprini VTE Risk Assessment: Mod/High Risk (score >= 2) Caprini Risk Assessment Model Point Value = 1 Point Value = 2 Point Value = 3 Point Value = 5 Age 41-60 Minor surgery BMI > 25 kg/m2 Swollen legs Varicose veins or History of unexplained or recurrent spontaneous Oral contraceptives or hormone replacement Sepsis (< 1 month) Serious lung disease, including pneumonia (< 1 month) Abnormal pulmonary function Acute myocardial infarction Congestive heart failure (< 1 month) History of inflammatory bowel disease Medical patient at bed rest Age 61-74 Arthroscopic surgery Major open surgery (> 45 min) Laparoscopic surgery (> 45 min) Malignancy Confined to bed (> 72 hours) Immobilizing plaster cast Central venous access Age >= 75 History of VTE Family history of VTE Factor V Leiden Prothrombin [id number] Lupus anticoagulant Anticardiolipin antibodies Elevated serum homocysteine Heparin-induced thrombocytopenia Other congenital or acquired thrombophilia Stroke (< 1 month) Elective arthroplasty Hip, pelvis, or leg fracture Acute spinal cord injury (< 1 month) Prophylaxis Regimen Total Risk Factor Score Risk Level Prophylaxis Regimen 0-1 Low Early ambulation 2 Moderate Order ONE of the following: *Sequential Compression Device (SCD) *Heparin 5000 units SQ BID 3-4 Higher Order ONE of the following medications: *Heparin 5000 units SQ TID *Enoxaparin/Lovenox 40 mg SQ daily (WT < 150 kg, CrCl > 30 mL/min) *Enoxaparin/Lovenox 30 mg SQ daily (WT < 150 kg, CrCl > 10-29 mL/min) *Enoxaparin/Lovenox 30 mg SQ BID (WT < 150 kg, CrCl > 30 mL/min) AND/OR *Sequential Compression Device (SCD) 5 or more Highest Order ONE of the following medications: *Heparin 5000 units SQ TID (Preferred with Epidurals) *Enoxaparin/Lovenox 40 mg SQ daily (WT < 150 kg, CrCl > 30 mL/min) *Enoxaparin/Lovenox 30 mg SQ daily (WT < 150 kg, CrCl > 10-29 mL/min) *Enoxaparin/Lovenox 30 mg SQ BID (WT < 150 kg, CrCl > 30 mL/min) AND *Sequential Compression Device (SCD) Assessment and Plan Assessment and Plan Assessment/plan: 1. Colitis Status post IV antibiotic treatment discontinued on 11/04 C. difficile pending Flagyl Will add Cipro if C. difficile negative 2. Anasarca/bilateral pleural effusions/CHF Chest x-ray pending BNP pending Depending on chest x-ray, patient may benefit from thoracentesis Continue home Bumex, Lasix and metolazone She reports her edema is baseline 3. COPD Stable DuoNeb's prn 4. CKD Stable Monitor renal function 5. CAD Holding effient and ASA 6. Insulin-dependent diabetes mellitus Continue home Levemir SSI Monitor blood glucose 7. Hypertension/hyperlipidemia Continue home medications 8. Hypokalemia Supplement with by mouth potassium Monitor BMP FEN Diabetic diet Electrolytes: as above Holding pharmacologic anticoagulation in case patient requires thoracentesis Venita Hook MD Nov 09, 2017 19:48
[2017-11-09] MEDS: INSULIN DETEMIR 100 UNITS/ML VIAL SQ SCH (20:00)
--- NOTE | 2017-11-09 20:12 | RADRPT ---
EXAM DATE/TIME: 11/09/2017 19:44 [facility] COMPARISON: CHEST SINGLE AP, October 31, 2017, 15:32. INDICATIONS : Chest pain and shortness of breath. MEDICAL HISTORY : Myocardial infarction. Congestive heart failure. Chronic obstructive pulmonary disease. CAD. A-fib. SURGICAL HISTORY : Tonsillectomy. Coronary artery stent. section. Appendectomy. Hysterectomy. ENCOUNTER: Initial ACUITY: 2 days PAIN SCORE: 3/10 LOCATION: Bilateral chest FINDINGS: Improved left basilar airspace disease and effusion since October 31. Bilateral residual effusions re main with basilar airspace disease. Cardiomegaly. No pneumothorax. CONCLUSION: 1. Improved basilar airspace disease and left pleural effusion. Residual basilar airspace disease and small effusions remain. Amadou Salazar MD on November 09, 2017 at 20:09 Board Certified Radiologist. This report was verified electronically.
[2017-11-09] MEDS ORDERED: INSULIN ASPART SUPPLEMENTAL SCALE SQ SCH (21:00)
[2017-11-09] MEDS: INSULIN ASPART SUPPLEMENTAL SCALE SQ SCH (21:00)
[2017-11-09] MEDS: METOPROLOL TARTRATE 50 MG TAB PO SCH ×2 (21:35→22:24)
[2017-11-09] MEDS: ATORVASTATIN 40 MG TAB PO SCH (21:35)
[2017-11-09] MEDS: SODIUM CHLORIDE 0.9% FLUSH 10 ML FLUSH IV FLUSH SCH (21:35)
[2017-11-09] MEDS: BUMETANIDE 1 MG TAB PO SCH (21:35)
[2017-11-09] MEDS: NIFEdipine 60 MG SUSTAINED RELEASE TAB PO SCH (21:35)
[2017-11-09] MEDS: metroNIDAZOLE 500 MG INJ 100 ML IV SCH (21:36)
[2017-11-09] MEDS ORDERED: HEPARIN SODIUM - SQ 10,000 UNITS/ML VIAL SQ SCH (22:00)
[2017-11-10] VITALS (11 sets, daily range): BP systolic 112–153; BP diastolic 59–68; PULSE 56–79; RESP 16–19; TEMP 97.3–98.7; O2SAT 95–99
[2017-11-10] MEDS: metroNIDAZOLE 500 MG INJ 100 ML IV SCH ×4 (02:36→21:44)
[2017-11-10 06:43] LABS: AUTOMATED NEUTROPHIL # 10.6 TH/MM3 (1.8-7.7); BASOPHIL % 0.2 % (0.0-2.0); EOSINOPHIL % 0.3 % (0.0-4.0); HEMATOCRIT 29.5 % (35.0-46.0); HEMO FLAGS DIFF FINAL; LYMPH % 8.2 % (9.0-44.0); MEAN CELL VOLUME 88.9 FL (80.0-100.0); MEAN CORPUSCULAR HEMOGLOBIN 29.2 PG (27.0-34.0); MEAN CORPUSCULAR HGB CONC 32.9 % (32.0-36.0); MONO % 5.9 % (0.0-8.0); NEUT % 85.4 % (16.0-70.0); PLATELET COUNT 238 TH/MM3 (150-450); RED BLOOD COUNT 3.32 MIL/MM3 (4.00-5.30); RED CELL DISTRIBUTION WIDTH 14.5 % (11.6-17.2); WHITE BLOOD COUNT 12.4 TH/MM3 (4.0-11.0)
[2017-11-10 07:15] LABS: ALKALINE PHOSPHATASE 109 U/L (45-117); ALT (GPT) 21 U/L (10-53); ANION GAP 6 MEQ/L (5-15); AST (GOT) 16 U/L (15-37); BICARBONATE 27.3 MEQ/L (21.0-32.0); BLOOD UREA NITROGEN 50 MG/DL (7-18); CHLORIDE 110 MEQ/L (98-107); GLOMERULAR FILTRATION RATE 27 ML/MIN (>89); POTASSIUM 4.1 MEQ/L (3.5-5.1); SODIUM (NA) 143 MEQ/L (136-145); TOTAL BILIRUBIN ADULT 0.2 MG/DL (0.2-1.0)
[2017-11-10] MEDS: INSULIN ASPART SUPPLEMENTAL SCALE SQ SCH ×4 (08:00→21:00)
[2017-11-10] MEDS: METOLAZONE 2.5 MG TAB PO SCH (09:00)
[2017-11-10] MEDS: INSULIN DETEMIR 100 UNITS/ML VIAL SQ SCH ×2 (09:29→21:43)
[2017-11-10] MEDS: NIFEdipine 60 MG SUSTAINED RELEASE TAB PO SCH ×2 (09:30→21:43)
[2017-11-10] MEDS: ISOSORBIDE MONONITRATE 60 MG TAB PO SCH (09:30)
[2017-11-10] MEDS: BUMETANIDE 1 MG TAB PO SCH (09:30)
[2017-11-10] MEDS: SODIUM CHLORIDE 0.9% FLUSH 10 ML FLUSH IV FLUSH SCH ×2 (09:31→21:43)
[2017-11-10] MEDS: FUROSEMIDE 40 MG TAB PO SCH (09:31)
[2017-11-10] MEDS: METOPROLOL TARTRATE 50 MG TAB PO SCH ×2 (09:31→21:43)
--- NOTE | 2017-11-10 12:05 | HHI.PR ---
Subjective Remarks Patient still having abdominal pain 7 out of 10 but he stated it's better than before, he reported nausea but no vomiting, positive diarrhea Afebrile Objective Vitals Vital Signs Date Time Temp Pulse Resp B/P (MAP) Pulse Ox O2 Delivery O2 Flow Rate FiO2 11/10/17 11:45 97.5 72 16 112/68 (83) 96 11/10/17 11:06 97.8 63 16 123/59 (80) 98 11/10/17 09:13 98.0 68 18 118/66 (83) 95 11/10/17 04:42 97.7 79 18 134/63 (86) 98 11/10/17 01:22 97.3 63 19 153/67 (95) 99 11/10/17 01:07 56 11/09/17 19:45 11/09/17 17:06 50 15 157/66 (96) 99 Nasal Cannula 2.00 11/09/17 16:25 97.9 48 17 142/67 (92) 94 Room Air 11/09/17 14:45 98.1 51 18 133/63 (86) 94 I/O 11/09/17 11/09/17 11/09/17 11/10/17 11/10/17 11/10/17 07:00 15:00 23:00 07:00 15:00 23:00 Intake Total 500 ml Balance 500 ml Intake Oral 500 ml # Voids 1 # Bowel Movements 1 Result Diagram: 11/10/1742111/10/17421 Objective Remarks - GENERAL: This is a well-nourished, well-developed patient, in no apparent distress. SKIN: No rashes, warm and dry HEAD: Atraumatic. Normocephalic. EYES: Pupils equal round and reactive. Extraocular motions intact. No scleral icterus. ENT: Nose without bleeding, or drainage, Airway patent. NECK: Trachea midline. Supple CARDIOVASCULAR: Regular rate and rhythm without murmurs, gallops, or rubs. RESPIRATORY: Fair air entry bilaterally. No wheezes, rales, or rhonchi. GASTROINTESTINAL: Abdomen soft with positive generalized tenderness, nondistended. Positive bowel sounds MUSCULOSKELETAL: Extremities without clubbing, cyanosis, or edema. Pedal pulses appreciated NEUROLOGICAL: Awake and alert. Moves all extremity. 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 Severe sepsis CHF with anasarca/bilateral pleural effusion>> improved on a new x-ray COPD Chronic kidney disease stage III History of coronary artery disease Diabetes mellitus2 Hypertension/hyperlipidemia Hypokalemia DVT prophylaxis patient on aspirin and Effient Plan: Personally reviewed chest x-ray and CT abdomen Chest x-ray showed improved left pleural effusion and airspace disease CT abdomen showed diffuse mural thickening in the colon special on the left side characteristic of mild colitis, severe anasarca Will add vancomycin by mouth, Consul GI BNP 819, I will hold Bumex continue Lasix considering patient's diarrhea Accu-Chek monitor closely cover if only above 200, patient had hypoglycemia first on admission Monitor BUN and creatinine, RUSLAN, avoid nephrotoxin Oxygen DuoNeb Resume aspirin and Effient Mukesh Arana MD Nov 10, 2017 12:05
[2017-11-10] MEDS: PRASUGREL 10 MG TAB PO SCH (13:19)
[2017-11-10] MEDS: VANCOMYCIN 500 MG VIAL (FOR ORAL USE ONLY) PO SCH ×3 (13:20→21:00)
--- NOTE | 2017-11-10 14:38 | PD.CONS ---
HPI History of Present Illness This is a 66 year old F who presented to the emergency department yesterday with complaints of lower abdominal pain and diarrhea. The diarrhea began on with fecal urgency, she is now experiencing fecal incontinence. Pt lives with her and daughter who helps to take care of her, she states her daughter has noticed some BRB on the toilet paper when she wipes. Denies black, tarry stools. She reports history of C. Diff, two episodes last spring. Pt was recently admitted to the hospital and discharged last , during her hospitalization she received multiple antibiotics. Denies fever, chills. Abdominal pain is lower, bilaterally, worse on the right side. She reports her last colonoscopy and EGD were in February of last year by Dr. 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 Pt does have history of anemia and follows up with Dr. Schmidt, hematology. 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 Pt has received multiple blood transfusion and currently receives iron transfusions as well. Of note, pt is on Effient S/P heart attack and stent placement, she states the last stent was placed last October. Family history is significant for colon cancer, her father from colorectal cancer at the age of 40. Pt denies ETOH use or smoking. Also denies use of NSAIDs. (Jessica Quintana) PFSH Past Medical History CHF CKD Hypertension Hyperlipidemia Insulin-dependent diabetes mellitus Osteoporosis Past Surgical History Hysterectomy Laminectomy at L5 Tonsillectomy Cardiac stent placement (Jessica Quintana) Coded Allergies: propoxyphene (Verified Allergy, Mild, RASH, 11/09/17) Family History Mother with MS, CAD Social History Smoking 15 years ago. Has a [id number] history of smoking. Denies alcohol. Last marijuana use in the spring. Denies other illicit drugs. (Jessica Quintana) Review of Systems Gastrointestinal: COMPLAINS OF: Abdominal pain, Bloody stools, Diarrhea, DENIES : Black stools, Constipation, Nausea, Vomiting, Swelling of Abdomen, Heartburn, Hematemesis (Jessica Quintana) GI Exam Vitals I&O Vital Signs Date Time Temp Pulse Resp B/P (MAP) Pulse Ox O2 Delivery O2 Flow Rate FiO2 11/10/17 11:45 97.5 72 16 112/68 (83) 96 11/10/17 11:06 97.8 63 16 123/59 (80) 98 11/10/17 09:13 98.0 68 18 118/66 (83) 95 11/10/17 04:42 97.7 79 18 134/63 (86) 98 11/10/17 01:22 97.3 63 19 153/67 (95) 99 11/10/17 01:07 56 11/09/17 19:45 11/09/17 17:06 50 15 157/66 (96) 99 Nasal Cannula 2.00 11/09/17 16:25 97.9 48 17 142/67 (92) 94 Room Air 11/09/17 14:45 98.1 51 18 133/63 (86) 94 I/O 11/09/17 11/09/17 11/09/17 11/10/17 11/10/17 11/10/17 07:00 15:00 23:00 07:00 15:00 23:00 Intake Total 500 ml 100 ml Balance 500 ml 100 ml Intake Oral 500 ml IV Total 100 ml # Voids 1 # Bowel Movements 1 Imaging Last Impressions Chest X-Ray 11/09/17 0000 Signed Impressions: Service Date/Time: Thursday, November 09, 2017 19:44 - CONCLUSION: 1. Improved basilar airspace disease and left pleural effusion. Residual basilar airspace disease and small effusions remain. Amadou Salazar MD Abdomen/Pelvis CT 11/09/17 0000 Signed Impressions: Service Date/Time: Thursday, November 09, 2017 17:50 - CONCLUSION: 1. There is diffuse mural thickening of the colon, especially on the left side characteristic of a mild colitis. 2. Moderate bilateral pleural effusions with compressive atelectasis in both lungs. 3. Severe anasarca. 4. No bowel obstruction. Amadou Salazar MD Laboratory Test 11/09/17 15:00 11/09/17 15:35 11/10/17 04:22 White Blood Count 13.8 TH/MM3 12.4 TH/MM3 Red Blood Count 3.25 MIL/MM3 3.32 MIL/MM3 Hemoglobin 9.7 GM/DL 9.7 GM/DL Hematocrit 29.3 % 29.5 % Mean Corpuscular Volume 90.1 FL 88.9 FL Mean Corpuscular Hemoglobin 29.7 PG 29.2 PG Mean Corpuscular Hemoglobin Concent 33.0 % 32.9 % Red Cell Distribution Width 14.8 % 14.5 % Platelet Count 252 TH/MM3 238 TH/MM3 Mean Platelet Volume 8.7 FL 8.5 FL Neutrophils (%) (Auto) 94.1 % 85.4 % Lymphocytes (%) (Auto) 3.7 % 8.2 % Monocytes (%) (Auto) 1.9 % 5.9 % Eosinophils (%) (Auto) 0.1 % 0.3 % Basophils (%) (Auto) 0.2 % 0.2 % Neutrophils # (Auto) 13.0 TH/MM3 10.6 TH/MM3 Lymphocytes # (Auto) 0.5 TH/MM3 1.0 TH/MM3 Monocytes # (Auto) 0.3 TH/MM3 0.7 TH/MM3 Eosinophils # (Auto) 0.0 TH/MM3 0.0 TH/MM3 Basophils # (Auto) 0.0 TH/MM3 0.0 TH/MM3 CBC Comment DIFF FINAL DIFF FINAL Differential Comment Prothrombin Time 9.7 SEC Prothromb Time International Ratio 1.0 RATIO Activated Partial Thromboplast Time 24.3 SEC Blood Urea Nitrogen 52 MG/DL 50 MG/DL Creatinine 1.66 MG/DL 1.86 MG/DL Random Glucose 87 MG/DL 155 MG/DL Total Protein 4.9 GM/DL 4.6 GM/DL Albumin 1.7 GM/DL 1.6 GM/DL Calcium Level 8.6 MG/DL 8.5 MG/DL Alkaline Phosphatase 112 U/L 109 U/L Aspartate Amino Transf (AST/SGOT) 21 U/L 16 U/L Alanine Aminotransferase (ALT/SGPT) 22 U/L 21 U/L Total Bilirubin 0.2 MG/DL 0.2 MG/DL Sodium Level 143 MEQ/L 143 MEQ/L Potassium Level 3.2 MEQ/L 4.1 MEQ/L Chloride Level 109 MEQ/L 110 MEQ/L Carbon Dioxide Level 26.5 MEQ/L 27.3 MEQ/L Anion Gap 8 MEQ/L 6 MEQ/L Estimat Glomerular Filtration Rate 31 ML/MIN 27 ML/MIN B-Type Natriuretic Peptide 810 PG/ML Lipase 59 U/L Urine Color YELLOW Urine Turbidity HAZY Urine pH 6.0 Urine Specific Leslie 1.017 Urine Protein 300 mg/dL Urine Glucose (UA) TRACE mg/dL Urine Ketones NEG mg/dL Urine Occult Blood MOD Urine Nitrite NEG Urine Bilirubin NEG Urine Urobilinogen LESS THAN 2.0 MG/DL Urine Leukocyte Esterase NEG Urine RBC 2 /hpf Urine WBC 6 /hpf Urine Squamous Epithelial Cells 2 /hpf Urine Transitional Epithelial Cells 1 /hpf Urine Amorphous Sediment FEW Urine Bacteria OCC /hpf Urine Hyaline Casts 3 /lpf Microscopic Urinalysis Comment CULT NOT INDICATED Stool C. difficile Toxin (PCR) POSITIVE Stl C. difficile Toxin Epiderm 027 PRESUMPTIVE POSITIVE Physical Examination HEENT: Normocephalic; atraumatic CHEST: Diminished CARDIAC: RRR ABDOMEN: Soft, nondistended, RLQ tenderness; no hepatosplenomegaly; bowel sounds active x 4. EXTREMITIES: BLE edema SKIN: Normal; no rash; no jaundice. DIRECTOR CONSTRUCTION SERVICES: No focal deficits; alert and oriented times three. (Jessica Quintana) Assessment and Plan Plan Assessment - C. Diff colitis with positive epid- CT abdomen/pelvis W/O IV contrast (11/09) --> There is diffuse mural thickening of the colon, especially on the left side characteristic of a mild colitis. Moderate bilateral pleural effusions with compressive atelectasis in both lungs. Severe anasarca. No bowel obstruction. Pt reports two episodes of C. Diff last spring. She was recently hospitalized and discharged last , received multiple abx during hospitalization. Last colonoscopy was done by Dr. Lang in February of last year, pt reports findings showed polyps. otherwise normal. Agree with current medication management for C. Diff. Would recommend continuing oral vanco and Flagyl can be switched to PO at time of discharge. - Anemia- Normocytic- H/H currently 9.7/29.5. Likely multifactorial. 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 Pt has received multiple transfusions in the past, currently receives iron transfusions. 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 Pt denies black, tarry stools. Currently on Effient S/P cardiac stent placed in October of last year. Plan - Continue Vanco - Continue Flagyl - Monitor labs - Notify GI of any active bleeding - Supportive care - Further recommendations to follow Pt has been seen and examined by myself and Dr. Francis and this note is written on his behalf (Jessica Quintana) Physician Comments Patient seen and examined Agree with above Continue with current supportive care Monitor labs I would suggest switching to oral Flagyl as of tomorrow and to continue him on both Flagyl and Vanco for 4 weeks (Pablo Francis MD) Jessica Quintana Nov 10, 2017 14:38 Pablo Francis MD Nov 10, 2017 19:42
--- NOTE | 2017-11-10 15:53 | EKG ---
Date Performed: 11/09/2017 Time Performed: 14:58:17 PTAGE: 66 years EKG: SINUS BRADYCARDIA MARKED LEFT AXIS DEVIATION POSSIBLE ANTERIOR MYOCARDIAL INFARCTION ABNORM AL ECG NO PREVIOUS TRACING DOCTOR: Bradley Anguiano Interpretating Date/Time 11/10/2017 15:51:40
[2017-11-10] MEDS: ATORVASTATIN 40 MG TAB PO SCH (21:43)
[2017-11-11] VITALS (8 sets, daily range): BP systolic 115–147; BP diastolic 57–65; PULSE 56–82; RESP 16–18; TEMP 96.7–98.4; O2SAT 95–98
[2017-11-11] MEDS: metroNIDAZOLE 500 MG INJ 100 ML IV SCH ×2 (03:28→09:32)
[2017-11-11 05:55] LABS: AUTOMATED NEUTROPHIL # 10.6 TH/MM3 (1.8-7.7); BASOPHIL % 0.3 % (0.0-2.0); EOSINOPHIL # 0.1 TH/MM3 (0-0.4); EOSINOPHIL % 0.7 % (0.0-4.0); HEMO FLAGS DIFF FINAL; LYMPH % 8.8 % (9.0-44.0); LYMPHOCYTE # 1.1 TH/MM3 (1.0-4.8); MEAN CELL VOLUME 89.4 FL (80.0-100.0); MEAN CORPUSCULAR HEMOGLOBIN 30.3 PG (27.0-34.0); MEAN CORPUSCULAR HGB CONC 33.9 % (32.0-36.0); MONO % 8.3 % (0.0-8.0); NEUT % 81.9 % (16.0-70.0); PLATELET COUNT 223 TH/MM3 (150-450); RED BLOOD COUNT 2.91 MIL/MM3 (4.00-5.30); RED CELL DISTRIBUTION WIDTH 14.6 % (11.6-17.2); WHITE BLOOD COUNT 12.9 TH/MM3 (4.0-11.0)
[2017-11-11 06:51] LABS: BICARBONATE 27.5 MEQ/L (21.0-32.0); POTASSIUM 3.9 MEQ/L (3.5-5.1)
[2017-11-11] MEDS: INSULIN DETEMIR 100 UNITS/ML VIAL SQ SCH (08:00)
[2017-11-11] MEDS: INSULIN ASPART SUPPLEMENTAL SCALE SQ SCH ×3 (08:00→17:00)
[2017-11-11] MEDS: METOLAZONE 2.5 MG TAB PO SCH (09:00)
[2017-11-11] MEDS: SODIUM CHLORIDE 0.9% FLUSH 10 ML FLUSH IV FLUSH SCH ×2 (09:33→22:50)
[2017-11-11] MEDS: PRASUGREL 10 MG TAB PO SCH (09:33)
[2017-11-11] MEDS: METOPROLOL TARTRATE 50 MG TAB PO SCH ×2 (09:34→22:51)
[2017-11-11] MEDS: ISOSORBIDE MONONITRATE 60 MG TAB PO SCH (09:34)
[2017-11-11] MEDS: FUROSEMIDE 40 MG TAB PO SCH (09:34)
--- NOTE | 2017-11-11 09:42 | HHI.GIFU ---
Subjective Remarks Sitting up in bed, eating cornflakes. Says her pain is somewhat better than before. She rates it 7/10 and is asking for pain meds. Diarrhea unchanged. (Jnaeth Sequeira) Objective Vitals I&O Vital Signs Date Time Temp Pulse Resp B/P (MAP) Pulse Ox O2 Delivery O2 Flow Rate FiO2 11/11/17 09:29 97.8 56 16 115/57 (76) 95 11/11/17 04:11 97.9 63 18 128/61 (83) 96 11/10/17 23:48 98.4 66 16 132/63 (86) 98 11/10/17 20:28 98.7 66 17 147/64 (91) 98 11/10/17 16:06 63 11/10/17 12:11 60 11/10/17 11:45 97.5 72 16 112/68 (83) 96 11/10/17 11:06 97.8 63 16 123/59 (80) 98 I/O 11/10/17 11/10/17 11/10/17 11/11/17 11/11/17 11/11/17 07:00 15:00 23:00 07:00 15:00 23:00 Intake Total 500 ml 100 ml 100 ml Balance 500 ml 100 ml 100 ml Intake Oral 500 ml IV Total 100 ml 100 ml # Voids 1 # Bowel Movements 1 Laboratory Laboratory Tests Test 11/11/17 05:13 White Blood Count 12.9 Red Blood Count 2.91 Hemoglobin 8.8 Hematocrit 26.0 Mean Corpuscular Volume 89.4 Mean Corpuscular Hemoglobin 30.3 Mean Corpuscular Hemoglobin Concent 33.9 Red Cell Distribution Width 14.6 Platelet Count 223 Mean Platelet Volume 8.7 Neutrophils (%) (Auto) 81.9 Lymphocytes (%) (Auto) 8.8 Monocytes (%) (Auto) 8.3 Eosinophils (%) (Auto) 0.7 Basophils (%) (Auto) 0.3 Neutrophils # (Auto) 10.6 Lymphocytes # (Auto) 1.1 Monocytes # (Auto) 1.1 Eosinophils # (Auto) 0.1 Basophils # (Auto) 0.0 CBC Comment DIFF FINAL Differential Comment Blood Urea Nitrogen 54 Creatinine 2.10 Random Glucose 40 Calcium Level 8.3 Sodium Level 143 Potassium Level 3.9 Chloride Level 109 Carbon Dioxide Level 27.5 Anion Gap 7 Estimat Glomerular Filtration Rate 24 Physical Exam HEENT: PERRL; normocephalic; atraumatic; no jaundice. CHEST: CTA CARDIAC: RRR ABDOMEN: Soft, nondistended, lower quadrant TTP; no hepatosplenomegaly; bowel sounds are present in all four quadrants. EXTREMITIES: No clubbing, cyanosis, or edema. SKIN: Normal; no rash; no jaundice. CUSTOMER SERVICE SPECIALIST: No focal deficits; alert and oriented times three. (Janeth Sequeira) Assessment and Plan Plan Assessment - C. Diff colitis with positive epid- CT abdomen/pelvis W/O IV contrast (11/09) --> There is diffuse mural thickening of the colon, especially on the left side characteristic of a mild colitis. Moderate bilateral pleural effusions with compressive atelectasis in both lungs. Severe anasarca. No bowel obstruction. Pt reports two episodes of C. Diff last spring. She was recently hospitalized and discharged last , received multiple abx during hospitalization. Last colonoscopy was done by Dr. Lang in February of last year, pt reports findings showed polyps. otherwise normal. - Anemia- Normocytic- mild drop Hgb Likely multifactorial. 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 Pt has received multiple transfusions in the past, currently receives iron transfusions. 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 Pt denies black, tarry stools. Currently on Effient S/P cardiac stent placed in October of last year. 11/11/17 - mild drop Hgb. tolerating regular diet. some improvement pain, no improvement diarrhea. On flagyl and Vanc. Plan - PO flagyl and Vanc - Monitor labs - Notify GI of any active bleeding - Supportive care GI will sign off please reconsult if needed Pt has been seen and examined by myself and Dr. Francis and this note is written on his behalf (Janeth Sequeira) Physician Comments Patient seen and examined Agree with above Continue with current supportive care Monitor labs By mouth Flagyl and Vanco for 4 weeks Follow-up with GI post discharge We will sign off (Pablo Francis MD) Janeth Sequeira Nov 11, 2017 09:42 Pablo Francis MD Nov 11, 2017 17:24
[2017-11-11] MEDS: VANCOMYCIN 500 MG VIAL (FOR ORAL USE ONLY) PO SCH ×4 (10:59→22:53)
[2017-11-11] MEDS: NIFEdipine 60 MG SUSTAINED RELEASE TAB PO SCH ×2 (11:00→22:51)
[2017-11-11] MEDS: SODIUM CHLOR 0.9% 1000 ML INJ 1,000 ML IV SCH ×3 (15:05→16:14)
--- NOTE | 2017-11-11 16:29 | HHI.PR ---
Subjective Remarks Patient had a low blood sugar of 40morning, she denied lightheaded or dizziness chest pain or short of breath, still having runny diarrhea To me she looks dehydrated. Kidney function worsened from 1.6-2.1 I will hold Lasix and metolazone and I will start some iv fluid Objective Vitals Vital Signs Date Time Temp Pulse Resp B/P (MAP) Pulse Ox O2 Delivery O2 Flow Rate FiO2 11/11/17 12:49 97.8 58 16 128/62 (84) 96 11/11/17 09:29 97.8 56 16 115/57 (76) 95 11/11/17 04:11 97.9 63 18 128/61 (83) 96 11/10/17 23:48 98.4 66 16 132/63 (86) 98 11/10/17 20:28 98.7 66 17 147/64 (91) 98 I/O 11/10/17 11/10/17 11/10/17 11/11/17 11/11/17 11/11/17 07:00 15:00 23:00 07:00 15:00 23:00 Intake Total 500 ml 100 ml 100 ml Balance 500 ml 100 ml 100 ml Intake Oral 500 ml IV Total 100 ml 100 ml # Voids 1 # Bowel Movements 1 Result Diagram: 11/11/17 0513 11/11/17 05 Objective Remarks - GENERAL: This is a well-nourished, well-developed patient, in no apparent distress. SKIN: No rashes, warm and dry HEAD: Atraumatic. Normocephalic. EYES: Pupils equal round and reactive. Extraocular motions intact. No scleral icterus. ENT: Nose without bleeding, or drainage, Airway patent. NECK: Trachea midline. Supple CARDIOVASCULAR: Regular rate and rhythm without murmurs, gallops, or rubs. RESPIRATORY: Fair air entry bilaterally. No wheezes, rales, or rhonchi. GASTROINTESTINAL: Abdomen soft with no significant tenderness, nondistended. Positive bowel sounds MUSCULOSKELETAL: Extremities without clubbing, cyanosis, or edema. Pedal pulses appreciated NEUROLOGICAL: Awake and alert. Moves all extremity. 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 Severe sepsis CHF with anasarca/bilateral pleural effusion>> improved on a new x-ray COPD CONOR on Chronic kidney disease stage III History of coronary artery disease Diabetes mellitus2 Hypertension/hyperlipidemia Hypokalemia DVT prophylaxis patient on aspirin and Effient Plan: Personally reviewed chest x-ray and CT abdomen Chest x-ray showed improved left pleural effusion and airspace disease CT abdomen showed diffuse mural thickening in the colon special on the left side characteristic of mild colitis, severe anasarca Will add vancomycin by mouth, Consul GI BNP 819, I will hold Bumex continue Lasix considering patient's diarrhea Accu-Chek monitor closely cover if only above 200, patient had hypoglycemia first on admission Monitor BUN and creatinine, RUSLAN, avoid nephrotoxin Oxygen DuoNeb Resume aspirin and Effient Mukesh Arana MD Nov 11, 2017 16:29
[2017-11-11] MEDS: metroNIDAZOLE 500 MG TAB PO SCH (19:15)
[2017-11-11] MEDS: ATORVASTATIN 40 MG TAB PO SCH (22:51)
[2017-11-12] VITALS (12 sets, daily range): BP systolic 132–165; BP diastolic 60–70; PULSE 54–74; RESP 17–20; TEMP 97–98.2; O2SAT 94–98
[2017-11-12] MEDS: INSULIN ASPART SUPPLEMENTAL SCALE SQ SCH ×5 (00:06→20:45)
[2017-11-12] MEDS: metroNIDAZOLE 500 MG TAB PO SCH ×4 (01:55→18:06)
[2017-11-12 07:45] LABS: BICARBONATE 25.5 MEQ/L (21.0-32.0); MAGNESIUM 1.8 MG/DL (1.5-2.5); POTASSIUM 4.1 MEQ/L (3.5-5.1)
[2017-11-12] MEDS: SODIUM CHLORIDE 0.9% FLUSH 10 ML FLUSH IV FLUSH SCH ×2 (09:00→20:44)
[2017-11-12] MEDS: ISOSORBIDE MONONITRATE 60 MG TAB PO SCH (09:13)
[2017-11-12] MEDS: NIFEdipine 60 MG SUSTAINED RELEASE TAB PO SCH ×2 (09:13→20:44)
[2017-11-12] MEDS: METOPROLOL TARTRATE 50 MG TAB PO SCH ×2 (09:13→20:44)
[2017-11-12] MEDS: PRASUGREL 10 MG TAB PO SCH (09:13)
[2017-11-12] MEDS: VANCOMYCIN 500 MG VIAL (FOR ORAL USE ONLY) PO SCH ×4 (09:14→20:44)
[2017-11-12] MEDS: SODIUM CHLOR 0.9% 1000 ML INJ 1,000 ML IV SCH ×2 (10:51→20:45)
--- NOTE | 2017-11-12 12:07 | HHI.PR ---
Subjective Remarks Follow up on the recurrent C. difficile colitis with sepsis and worsening CONOR Patient still having abdominal pain about 6 out of 10, still having runny diarrhea No fever or chills, she had hypoglycemic episodes and she was taken off Levemir and then placed on a lower dose, now blood sugar back up will continue monitoring Patient seems to be little dehydrated so we held diuretic and placed on gentle iv fluid to monitor BMP Objective Vitals Vital Signs Date Time Temp Pulse Resp B/P (MAP) Pulse Ox O2 Delivery O2 Flow Rate FiO2 11/12/17 08:11 98.2 72 20 152/67 (95) 98 11/12/17 05:44 97.0 70 18 132/63 (86) 95 11/12/17 00:37 97.8 74 18 165/70 (101) 94 11/11/17 23:50 98 Nasal Cannula 3.00 11/11/17 23:47 69 11/11/17 21:19 96.7 70 18 147/65 (92) 96 11/11/17 20:27 82 11/11/17 16:58 98.4 64 18 137/63 (87) 96 11/11/17 12:49 97.8 58 16 128/62 (84) 96 I/O 11/11/17 11/11/17 11/11/17 11/12/17 11/12/17 11/12/17 07:00 15:00 23:00 07:00 15:00 23:00 # Voids 4 # Bowel Movements 4 Result Diagram: 11/11/17 0513 11/12/17 0640 Objective Remarks - GENERAL: This is a well-nourished, well-developed patient, in no apparent distress. SKIN: No rashes, warm and dry HEAD: Atraumatic. Normocephalic. EYES: Pupils equal round and reactive. Extraocular motions intact. No scleral icterus. ENT: Nose without bleeding, or drainage, Airway patent. NECK: Trachea midline. Supple CARDIOVASCULAR: Regular rate and rhythm without murmurs, gallops, or rubs. RESPIRATORY: Fair air entry bilaterally. No wheezes, rales, or rhonchi. GASTROINTESTINAL: Abdomen soft with no significant tenderness, nondistended. Positive bowel sounds MUSCULOSKELETAL: Extremities without clubbing, cyanosis, or edema. Pedal pulses appreciated NEUROLOGICAL: Awake and alert. Moves all extremity. Normal speech.no focal neurological deficit A/P Assessment and Plan 11/11: Creatinine worsened from 1.62.1, patient seemed to be getting dehydrated considering his diarrhea, made the decision to hold Lasix and metolazone and start gentle iv fluid, monitor BMP, will change Flagyl iv 2 by mouth per GI recommendation Will hold Levemir and cover with sliding scale only for blood glucose is above 200, check Accu-Chek every 2 hours 11/12:Patient still having abdominal pain about 6 out of 10, still having runny diarrhea No fever or chills, she had hypoglycemic episodes and she was taken off Levemir and then placed on a lower dose, now blood sugar back up will continue monitoring Patient seems to be little dehydrated so we held diuretic and placed on gentle iv fluid to monitor BMP A/P: 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 Severe sepsis CHF with anasarca/bilateral pleural effusion>> improved on a new x-ray COPD CONOR on Chronic kidney disease stage III History of coronary artery disease Diabetes mellitus2 Hypertension/hyperlipidemia Hypokalemia DVT prophylaxis patient on aspirin and Effient Plan: Personally reviewed chest x-ray and CT abdomen Chest x-ray showed improved left pleural effusion and airspace disease CT abdomen showed diffuse mural thickening in the colon special on the left side characteristic of mild colitis, severe anasarca Will add vancomycin by mouth, Consul GI BNP 819, I will hold Bumex continue Lasix considering patient's diarrhea Accu-Chek monitor closely cover if only above 200, patient had hypoglycemia first on admission Monitor BUN and creatinine, RUSLAN, avoid nephrotoxin Oxygen DuoNeb Resume aspirin and Effient Mukesh Arana MD Nov 12, 2017 12:07
[2017-11-12] MEDS: ATORVASTATIN 40 MG TAB PO SCH (20:44)
[2017-11-13] VITALS (7 sets, daily range): BP systolic 161–196; BP diastolic 72–83; PULSE 60–80; RESP 17–24; TEMP 97.8–98.6; O2SAT 93–98
[2017-11-13] MEDS: metroNIDAZOLE 500 MG TAB PO SCH ×5 (00:10→23:07)
[2017-11-13] MEDS ORDERED: INSULIN DETEMIR 100 UNITS/ML VIAL SQ SCH (07:00)
[2017-11-13 07:40] LABS: BICARBONATE 21.5 MEQ/L (21.0-32.0)
[2017-11-13] MEDS: INSULIN ASPART SUPPLEMENTAL SCALE SQ SCH ×4 (08:55→23:08)
[2017-11-13] MEDS: NIFEdipine 60 MG SUSTAINED RELEASE TAB PO SCH ×2 (10:09→23:07)
[2017-11-13] MEDS: ISOSORBIDE MONONITRATE 60 MG TAB PO SCH (10:09)
[2017-11-13] MEDS: VANCOMYCIN 500 MG VIAL (FOR ORAL USE ONLY) PO SCH ×4 (10:09→23:06)
[2017-11-13] MEDS: PRASUGREL 10 MG TAB PO SCH (10:10)
[2017-11-13] MEDS: METOPROLOL TARTRATE 50 MG TAB PO SCH ×2 (10:10→23:08)
[2017-11-13] MEDS: SODIUM CHLORIDE 0.9% FLUSH 10 ML FLUSH IV FLUSH SCH ×2 (10:10→23:05)
--- NOTE | 2017-11-13 11:53 | HHI.PR ---
Subjective Remarks This is a follow up on recurrent C. difficile colitis with CONOR "I have abdominal and every time I tried to eat " No bowel movement today but the last one yesterday was still loose stool Afebrile Objective Vitals Vital Signs Date Time Temp Pulse Resp B/P (MAP) Pulse Ox O2 Delivery O2 Flow Rate FiO2 11/13/17 08:28 98.6 63 20 162/72 (102) 93 11/13/17 07:06 Nasal Cannula 2.00 11/13/17 03:26 98.1 77 17 187/79 (115) 96 11/13/17 00:25 98.4 80 17 196/83 (120) 96 11/12/17 21:16 98.1 67 17 150/62 (91) 96 11/12/17 19:19 96 2.00 11/12/17 16:13 98.2 20 144/66 (92) 96 11/12/17 13:11 54 11/12/17 13:11 65 11/12/17 12:13 98.2 20 148/60 (89) 96 I/O 11/12/17 11/12/17 11/12/17 11/13/17 11/13/17 11/13/17 07:00 15:00 23:00 07:00 15:00 23:00 # Voids 4 # Bowel Movements 4 Result Diagram: 11/11/17 0513 11/13/17 0615 Objective Remarks - GENERAL: This is a well-nourished, well-developed patient, in no apparent distress. SKIN: No rashes, warm and dry HEAD: Atraumatic. Normocephalic. EYES: Pupils equal round and reactive. Extraocular motions intact. No scleral icterus. ENT: Nose without bleeding, or drainage, Airway patent. NECK: Trachea midline. Supple CARDIOVASCULAR: Regular rate and rhythm without murmurs, gallops, or rubs. RESPIRATORY: Fair air entry bilaterally. No wheezes, rales, or rhonchi. GASTROINTESTINAL: Abdomen soft with no significant tenderness, nondistended. Positive bowel sounds MUSCULOSKELETAL: Extremities without clubbing, cyanosis, or edema. Pedal pulses appreciated NEUROLOGICAL: Awake and alert. Moves all extremity. 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 Severe sepsis CHF with anasarca/bilateral pleural effusion>> improved on a new x-ray COPD CONOR on Chronic kidney disease stage III see due to started to get dehydration with the diarrhea and diuretic History of coronary artery disease Diabetes mellitus2 with typical acinic episode Hypertension/hyperlipidemia Hypokalemia DVT prophylaxis patient on aspirin and Effient Plan: Initially Creatinine worsened from 1.62.1, patient seemed to be getting dehydrated considering his diarrhea, made the decision to hold Lasix and metolazone and start gentle iv fluid, monitor BMP, change Flagyl iv 2 by mouth per GI recommendation We titrated Levemir from 15 twice a day units to 10 units twice a day continue titrating Patient seemed to be little dehydrated due to the diarrhea and diuresis so we held diuretic and placed on gentle iv fluid for 1 day, I will stop iv fluid and monitor BMP BMP in a.m. consider resuming her diuresis once diarrhea stop Personally reviewed chest x-ray and CT abdomen Chest x-ray showed improved left pleural effusion and airspace disease CT abdomen showed diffuse mural thickening in the colon special on the left side characteristic of mild colitis, severe anasarca vancomycin and Flagyl by mouth, GI consulted and signed off Monitor BUN and creatinine, RUSLAN, avoid nephrotoxin Oxygen DuoNeb Resume aspirin and Effient Discharge Planning To rehabilitation when abdominal pain and diarrhea improved on by mouth yl and Noman To follow up with GI for recurrent C. difficile Also to be placed back on diuresis considering her recent diarrheal C. difficile disease Mukesh Arana MD Nov 13, 2017 11:53
[2017-11-13] MEDS: ATORVASTATIN 40 MG TAB PO SCH (23:07)
[2017-11-13] MEDS: INSULIN DETEMIR 100 UNITS/ML VIAL SQ SCH (23:09)
[2017-11-14 01:03] VITALS: BP 164/74; PULSE 62; RESP 20; TEMP 98.2; O2SAT 94
[2017-11-14 05:11] VITALS: BP 145/67; PULSE 65; RESP 17; TEMP 98.1; O2SAT 93
[2017-11-14] MEDS: metroNIDAZOLE 500 MG TAB PO SCH ×2 (05:45→14:11)
[2017-11-14 07:17] VITALS: PULSE 62
[2017-11-14 08:21] LABS: BICARBONATE 23.9 MEQ/L (21.0-32.0); MAGNESIUM 1.8 MG/DL (1.5-2.5); POTASSIUM 3.6 MEQ/L (3.5-5.1)
[2017-11-14] MEDS: INSULIN ASPART SUPPLEMENTAL SCALE SQ SCH ×2 (08:30→12:54)
[2017-11-14 08:42] VITALS: BP 161/73; PULSE 60; RESP 18; TEMP 98.5; O2SAT 94
[2017-11-14] MEDS: ISOSORBIDE MONONITRATE 60 MG TAB PO SCH (10:15)
[2017-11-14] MEDS: PRASUGREL 10 MG TAB PO SCH (10:15)
[2017-11-14] MEDS: SODIUM CHLORIDE 0.9% FLUSH 10 ML FLUSH IV FLUSH SCH (10:16)
[2017-11-14] MEDS: VANCOMYCIN 500 MG VIAL (FOR ORAL USE ONLY) PO SCH ×2 (10:16→14:11)
[2017-11-14] MEDS: METOPROLOL TARTRATE 50 MG TAB PO SCH (10:16)
[2017-11-14] MEDS: NIFEdipine 60 MG SUSTAINED RELEASE TAB PO SCH (10:16)
[2017-11-14] MEDS: INSULIN DETEMIR 100 UNITS/ML VIAL SQ SCH (10:25)
[2017-11-14 15:06] VITALS: PULSE 56
--- NOTE | 2017-11-14 15:37 | HHI.FF ---
Face to Face Verification Diagnosis: (1) Generalized weakness (2) Diarrhea (3) Chronic kidney disease, stage 4 (severe) (4) HTN (hypertension) (5) Diabetes mellitus (6) Colitis (7) Abdominal pain Physical Therapy Order: Evaluate and Treat, Improve ambulation, Strength and gait training Home Health Nursing Order: Medical education Signs/symptoms of disease process CHF education Oxygen administration education Medication education-adverse effect Wound care and dressing changes Nursing assessment with vital signs Instructions: Wound care RLE I have seen patient Brinda Maynard on 11/14/17. My clinical findings support the need for the requested home health care services because: Ltd mobility - disease progression Patient has SOB Deconditioned w/ increased weakness Limited ability to care for self High risk of falls I certify that my clinical findings support that this patient is homebound because: Hx COPD- exertion dyspnea/weakness Unsteady gait/balance Unsafe to leave home unassisted Unable to use public transportation Abril Pace Nov 14, 2017 15:37
[2017-11-14] MEDS ORDERED: VANC500I3 PO (15:47)
[2017-11-14] MEDS ORDERED: METR-1 PO (15:47)
--- NOTE | 2017-11-14 15:49 | HHI.DCPOC ---
Discharge Care Plan Diagnosis: (1) Colitis (2) Generalized weakness (3) Abdominal pain (4) Diabetes mellitus (5) Acute kidney insufficiency (6) Dehydration Goals to Promote Your Health * To prevent worsening of your condition and complications * To maintain your health at the optimal level Directions to Meet Your Goals Recommend reducing diuretic therapy at this time and continue with Lasix and metolazone only at this time. Do not resume Bumex as this time. Recommend following up with primary care physician to discuss ongoing diuretic management. Follow-up with order runner as outpatient. Take your medications as prescribed Follow your dietary instruction Follow activity as directed Keep your appointments as scheduled Take your immunizations and boosters as scheduled If your symptoms worsen call your PCP, if no PCP go to Urgent Care Center or Emergency Room Smoking is Dangerous to Your Health. Avoid second hand smoke Call the 24-hour hour crisis hotline for domestic abuse at Abril Pace Nov 14, 2017 15:49
[2017-11-14] MEDS ORDERED: LACTPOW68 PO (15:50)
--- NOTE | 2017-11-14 15:53 | HHI.DS ---
Discharge Summary Admission Date Nov 09, 2017 at 18:58 Discharge Date: Nov 14, 2017 Admitting Diagnosis colitis, abdominal pain, generalized weakness (1) C. difficile colitis ICD Code: A04.72 - Enterocolitis due to Clostridium difficile, not specified as recurrent (2) Abdominal pain ICD Code: R10.9 - Unspecified abdominal pain Status: Acute (3) Diarrhea ICD Code: R19.7 - Diarrhea, unspecified Status: Acute (4) Colitis ICD Code: K52.9 - Noninfective gastroenteritis and colitis, unspecified Status: Acute (5) Acute kidney insufficiency ICD Code: N28.9 - Disorder of kidney and ureter, unspecified Status: Acute (6) Generalized weakness ICD Code: R53.1 - Weakness Status: Acute (7) Dehydration ICD Code: E86.0 - Dehydration Status: Acute (8) Chronic kidney disease, stage 4 (severe) ICD Code: N18.4 - Chronic kidney disease, stage 4 (severe) Status: Chronic (9) HTN (hypertension) ICD Code: I10 - Essential (primary) hypertension Status: Chronic (10) Diabetes mellitus ICD Code: E11.9 - Type 2 diabetes mellitus without complications Status: Chronic (11) Anasarca ICD Code: R60.1 - Generalized edema Status: Acute Procedures None Brief History - From Admission 66-year-old female with a past medical history significant for COPD on 2L nc at home, CHF (ECHO showed EF of 60-65% on 08/11/17), CKD, hypertension, hyperlipidemia and insulin-dependent diabetes mellitus presents to the hospital with abdominal pain and diarrhea. The patient was discharged from [facility] [place] where she was treated for respiratory failure with COPD and CHF exacerbations. The patient has a past medical history significant for C. difficile last spring, status post treatment with by mouth vancomycin. She reports abdominal pain and diarrhea since . States she has diarrhea approximately 10 times per day with accompanying fecal incontinence. CT of the abdomen/pelvis shows mild colitis with moderate bilateral pleural effusions and severe anasarca. She has a leukocytosis of 13.8, creatinine 1.66 with a baseline of 2.2. The patient reports that her anasarca/bilateral lower extremity edema is stable. She denies any shortness of breath or chest pain. CBC/BMP: 11/11/17 0513 11/14/17 0642 Significant Findings Laboratory Tests Test 11/12/17 06:40 11/13/17 06:15 11/14/17 06:42 Blood Urea Nitrogen 48 MG/DL (7-18) 49 MG/DL (7-18) 48 MG/DL (7-18) Creatinine 2.19 MG/DL (0.50-1.00) 2.15 MG/DL (0.50-1.00) 2.15 MG/DL (0.50-1.00) Random Glucose 269 MG/DL (74-106) 350 MG/DL (74-106) 184 MG/DL (74-106) Calcium Level 8.4 MG/DL (8.5-10.1) 8.3 MG/DL (8.5-10.1) 8.4 MG/DL (8.5-10.1) Chloride Level 108 MEQ/L (98-107) 108 MEQ/L (98-107) 112 MEQ/L (98-107) Estimat Glomerular Filtration Rate 23 ML/MIN (>89) 23 ML/MIN (>89) 23 ML/MIN (>89) B-Type Natriuretic Peptide 373 PG/ML (0-100) 603 PG/ML (0-100) 528 PG/ML (0-100) Phosphorus Level 1.9 MG/DL (2.5-4.9) Imaging Last Impressions Chest X-Ray 11/09/17 0000 Signed Impressions: Service Date/Time: Thursday, November 09, 2017 19:44 - CONCLUSION: 1. Improved basilar airspace disease and left pleural effusion. Residual basilar airspace disease and small effusions remain. Amadou Salazar MD Abdomen/Pelvis CT 11/09/17 0000 Signed Impressions: Service Date/Time: Thursday, November 09, 2017 17:50 - CONCLUSION: 1. There is diffuse mural thickening of the colon, especially on the left side characteristic of a mild colitis. 2. Moderate bilateral pleural effusions with compressive atelectasis in both lungs. 3. Severe anasarca. 4. No bowel obstruction. Amadou Salazar MD PE at Discharge - GENERAL: This is a well-nourished, well-developed patient, in no apparent distress. Awake and alert. Appears comfortable. SKIN: (+)skin deformity right lower extremity s/p dog bite 8 months ago with superficial wounds noted, no active infection. HEAD: Atraumatic. Normocephalic. EYES: Pupils equal round and reactive. Extraocular motions intact. No scleral icterus. ENT: Nose without bleeding, or drainage, Airway patent. NECK: Trachea midline. Supple CARDIOVASCULAR: Regular rate and rhythm without murmurs, gallops, or rubs. RESPIRATORY: Fair air entry bilaterally. No wheezes, rales, or rhonchi. GASTROINTESTINAL: Abdomen soft with no tenderness to palpation, nondistended. Positive bowel sounds MUSCULOSKELETAL: Extremities without clubbing or cyanosis. 1-2+ pitting edema bilateral lower legs, no edema in thighs noted. Pedal pulses appreciated NEUROLOGICAL: Awake and alert. Moves all extremities. No focal neurologic findings appreciated. Normal speech. Pt update on day of discharge Patient seen and examined. Patient reports only one episode of diarrhea this morning. She denies any blood in the stools. States she's feeling better. Able to tolerate a diet. No nausea or vomiting. Does report some lower abdominal pain. Denies any fever or chills. Denies any chest pain or change in chronic shortness of breath. Discussed with nursing staff, no acute issues noted. Hospital Course Patient with past medical history of C. difficile last spring treated with oral vancomycin admitted with abdominal pain and diarrhea. CT of the abdomen and pelvis obtained revealing diffuse mural thickening of the colon, especially on the left side characteristic of a mild colitis, moderate bilateral pleural effusions with compressive atelectasis in both lungs and severe anasarca. C. difficile was toxin 0 27 strain positive. BNP was 819. Patient was continued on Lasix but Bumex was held. Patient was seen in consultation by GI. She was treated with oral vancomycin and Flagyl. GI recommended continuation for another 4 weeks and signed off. Patient improved clinically. She was able to tolerate diet without any nausea or vomiting. She was afebrile. She has CKD and her creatinine and GFR remained stable. Patient seen in consultation by physical therapy and recommended PT rehabilitation versus home health care PT. Discussed with patient prior to discharge and refused rehabilitation admission. Patient reported she had home health care PT and advanced nursing professor set up prior to admission to the hospital. At discharge, patient resumed on her Lasix and Metolazone and advised on discontinuation for now of the Bumex until she followed up with her primary care physician. Patient is blood pressure fairly well-controlled during her inpatient course, recommended patient follow-up with PCP for adjustment of hypertensive medications. Patient's instructed to follow- up with body rolling machine tender as outpatient. Pt Condition on Discharge: Stable Discharge Disposition: Disch w/ Home Health Serv Discharge Time: > 30 minutes Discharge Instructions DIET: Follow Instructions for: Heart Healthy Diet, Diabetic Diet, Low Sodium Diet Activities you can perform: See Additionl Instruction Other Activity Instructions: per PT recommendations Follow up Referrals: Gastroenterology - 1 Week PCP Follow-up - 1 Week New Medications: Lactobacillus Acidophilus (Lactobacillus Acidophilus) 1 Pkt 1 PKT PO TID for Nutritional Supplement, #90 PKT 0 Refills Metronidazole (Flagyl) 500 Mg Tab 500 MG PO TID for Infection, #90 TAB Vancomycin Inj (Vancomycin Inj) 500 Mg Inj 250 MG PO QID for INFECTION, #112 INJECTION Continued Medications: Acetaminophen (Tylenol) 325 Mg Tab 325 MG PO Q4H PRN for PAIN SCALE 1 TO 5, TAB 0 Refills Aspirin (Aspirin) 81 Mg Chew 81 MG CHEW DAILY, TAB 0 Refills Atorvastatin (Atorvastatin) 40 Mg Tab 40 MG PO HS for Cholesterol Management, #30 TAB 2 Refills Furosemide (Lasix) 40 Mg Tab 40 MG PO DAILY, #30 TAB 0 Refills Insulin Aspart Inj (Novolog Inj) 100 Unit/Ml Inj 1 UNITS SQ ACHS SLIDING SCALE for Blood Sugar Management for 30 Days, INJECTION Sliding Scale As Directed.150-199 1 Unit; 200-249 3 units; 250-299 5 Units; 300-349 7 Units; Insulin Detemir Inj (Levemir Inj) 1,000 unit/ 10 ML Vial 15 UNITS SQ Q12H for Blood Sugar Management for 30 Days, INJECTION Do not mix with any other Insulin. Ipratropium-Albuterol Neb (Duoneb) 0.5-2.5 Mg/3 Ml Neb 1 NEBULE INH Q4HR NEB for SHORTNESS OF BREATH, #120 NEBULE 1 Refill Isosorbide Mononitrate ER (Isosorbide Mononitrate ER) 60 Mg Tab 60 MG PO DAILY for Prevent Chest Pain, #30 TAB 0 Refills Metolazone (Metolazone) 2.5 Mg Tab 2.5 MG PO DAILY, #30 TAB 0 Refills Metoprolol Tartrate (Metoprolol Tartrate) 50 Mg Tab 50 MG PO BID, #60 TAB 0 Refills Nifedipine ER 24 HR (Nifedipine ER 24 HR) 60 Mg Tab 60 MG PO Q12HR for HTN for 30 Days, #60 TAB Prasugrel (Effient) 10 Mg Tab 10 MG PO DAILY for Blood Clot Prevention, #30 TAB 0 Refills Zinc Sulfate (Orazinc) 220 Mg (50 Mg Zinc) Cap 220 MG PO DAILY for Nutritional Supplement Discontinued Medications: Bumetanide (Bumetanide) 2 Mg Tab 2 MG PO BID for edema, #60 TAB 0 Refills Abril Pace Nov 14, 2017 15:53
[2017-11-14 16:41] VITALS: BP_SYST 121; BP_SYST 159; BP_DIAS 59; BP_DIAS 72; PULSE 106; PULSE 59; RESP 24; TEMP 97.8; O2SAT 98
[2017-11-14] MEDS ORDERED: LACTOBACILLUS ACIDOPHILUS TAB PO SCH (18:00)
== END 2017-11-14 19:07 | disposition home or self-care (01) ==
LOC: NEPE 14:40 → NEDA 18:58 → NEPFCDU 19:47
PROVIDERS: ADMIT Family Medicine; ATTEND Family Medicine
DX: A04.71 Enterocolitis due to Clostridium difficile, recurrent (principal); K52.9 Noninfective gastroenteritis and colitis, unspecified; N28.9 Disorder of kidney and ureter, unspecified; R53.1 Weakness; I25.10 Atherosclerotic heart disease of native coronary artery without angina pectoris; I13.0 Hypertensive heart and chronic kidney disease with heart failure and stage 1 through stage 4 chronic kidney disease, or unspecified chronic kidney disease; I50.9 Heart failure, unspecified; N18.4 Chronic kidney disease, stage 4 (severe); E11.22 Type 2 diabetes mellitus with diabetic chronic kidney disease; E86.0 Dehydration; J44.9 Chronic obstructive pulmonary disease, unspecified; E87.6 Hypokalemia; E78.5 Hyperlipidemia, unspecified; D64.9 Anemia, unspecified; F12.90 Cannabis use, unspecified, uncomplicated; I25.2 Old myocardial infarction; J98.11 Atelectasis; K21.9 Gastro-esophageal reflux disease without esophagitis; M81.0 Age-related osteoporosis without current pathological fracture; R60.1 Generalized edema; Z79.4 Long term (current) use of insulin; Z80.0 Family history of malignant neoplasm of digestive organs; Z95.5 Presence of coronary angioplasty implant and graft; Z90.710 Acquired absence of both cervix and uterus; Z87.891 Personal history of nicotine dependence
CPT/HCPCS: 71010; 74176; 80048; 80053; 81001; 82948; 83690; 83735; 83880; 84100; 85025; 85610; 85730; 87493; 93005; 96365; 96366; 96372; 96375; 97110; 97116; 97162; 99285; G0378; G8987; G8988; J1815; J2270; J2405; J7030

== ENCOUNTER 2017-11-25 15:23 | Observation (INO) | payer MEDICARE, BC ==
[~2017-11-25] VITALS: Ht 162.6 cm; Wt 100.0 kg
[~2017-11-25 15:23] MED LIST changes: -Albuterol-Ipratropium Neb NEB; -BUME2TAB PO; -HYDR-3516 PO; -IPRA0.02 NEB; +LACTPOW68 PO; +METR-1 PO; -NEBUKIT5; -PRED5TAB PO; +VANC500I3 PO
[2017-11-25 15:25] VITALS: BP 214/100; PULSE 95; RESP 14; TEMP 96.6; O2SAT 95
--- NOTE | 2017-11-25 16:10 | RADRPT ---
EXAM DATE/TIME: 11/25/2017 15:47 [facility] COMPARISON: CHEST PA & LAT, November 02, 2017, 15:12. INDICATIONS : Short of breath. MEDICAL HISTORY : Diabetes mellitus type II. C-Diff. Acute kidney failure. Pleural effusion. Cardiomegaly. Myocar dial infarction. Congestive heart failure. Chronic obstructive pulmonary disease. CAD. A-fib. SURGICAL HISTORY : Tonsillectomy. Coronary artery stent. section. Appendectomy.Hysterectomy ENCOUNTER: Initial ACUITY: 3 days PAIN SCORE: 0/10 LOCATION: Bilateral chest FINDINGS: Today's exam is compared to the prior study. There appears to be an increasing infiltrate in the left lung base. There appears to be new infiltrate in the right lung base. The heart appears to be enlarg ed. There is increased interstitial markings bilaterally suggestive of pulmonary edema. The bony stru ctures are grossly intact there is no evidence of pneumothorax. CONCLUSION: 1. Increased interstitial markings bilaterally characteristic of pulmonary edema. 2. There is a new right lower lung infiltrate. 3. Increasing left lower lung infiltrate. David Lezama MD on November 25, 2017 at 16:07 Board Certified Radiologist. This report was verified electronically.
[2017-11-25] MEDS ORDERED: FUROSEMIDE 40 MG/4 ML VIAL IV PUSH ONE (16:45)
[2017-11-25] MEDS ORDERED: SODIUM CHLORIDE 0.9% FLUSH 10 ML FLUSH IVF PRN (16:45)
--- NOTE | 2017-11-25 16:58 | PD ---
HPI Chief Complaint: General Weakness Time Seen by Provider: 16:31 Travel History International Travel<30 days: No Contact w/Intl Traveler<30days: No Traveled to known affect area: No History of Present Illness HPI 66-year-old female presents with shortness of breath and swelling in her legs since . She states she went to her doctor who sent her here given her shortness of breath. She denies any fever, cough or other concurrent complaints. She does note she had C. difficile recently. She feels worse when she moves around. She denies other modifying factors. Quality is swollen. Severity is to knees. Duration is since . PFSH Past Medical History Hx Anticoagulant Therapy: Yes (ASPIRIN ) Anemia: Yes (iron deficiency) Arthritis: Yes Asthma: Yes Anxiety: No Depression: No Heart Rhythm Problems: No Cancer: No Cardiovascular Problems: Yes High Cholesterol: Yes Chemotherapy: No Chest Pain: No Congestive Heart Failure: Yes COPD: Yes Cerebrovascular Accident: No Coronary Artery Disease: Yes Diabetes: Yes Patient Takes Glucophage: No Diminished Hearing: No Endocrine: No Gastrointestinal Disorders: Yes (c-diff) GERD: No Genitourinary: No Headaches: No Hepatitis: No Hiatal Hernia: Yes Hypertension: Yes Immune Disorder: No Implanted Vascular Access Dvce: Yes Kidney Stones: No Musculoskeletal: Yes Neurologic: Yes Psychiatric: No Reproductive: Yes Respiratory: Yes Immunizations Current: Yes Migraines: Yes Myocardial Infarction: Yes Radiation Therapy: No Renal Failure: No Seizures: No Sleep Apnea: No Thyroid Disease: No Ulcer: No Menopausal: Yes : 1 Para: 1 Miscarriage: 0 Past Surgical History Abdominal Surgery: Yes (APPENDECTOMY) AICD: No Appendectomy: Yes Body Medical Devices: CARDIAC STENTS X3 Cardiac Surgery: Yes (STENT PLACEMENT) Section: Yes Coronary Stent: Yes (3 stents) Ear Surgery: No Endocrine Surgery: No Eye Surgery: No Genitourinary Surgery: No Gynecologic Surgery: Yes Hysterectomy: Yes Neurologic Surgery: No Oral Surgery: Yes (TONSILS) Pacemaker: No Thoracic Surgery: No Tonsillectomy: Yes (ADENOIDS) Other Surgery: Yes (LEFT WRIST GANGLION CYST) Social History Alcohol Use: No Tobacco Use: No (QUIT 2001) Substance Use: No Allergies-Medications (Allergen,Severity, Reaction): Coded Allergies: propoxyphene (Verified Allergy, Mild, RASH, 12/12/17) Reported Meds & Prescriptions Reported Meds & Active Scripts Active Flagyl (Metronidazole) 500 Mg Tab 500 Mg PO TID Atorvastatin (Atorvastatin Calcium) 40 Mg Tab 40 Mg PO HS Metolazone 2.5 Mg Tab 2.5 Mg PO DAILY Duoneb (Ipratropium-Albuterol Neb) 0.5-2.5 Mg/3 Ml Neb 1 Nebule INH Q4HR NEB Levemir Inj (Insulin Detemir) 1,000 unit/ 10 ML Vial 15 Units SQ Q12H 30 Days Do not mix with any other Insulin. Isosorbide Mononitrate ER (Isosorbide Mononitrate) 60 Mg Tab 60 Mg PO DAILY Novolog Inj (Insulin Aspart) 100 Unit/Ml Inj 1 Units SQ ACHS SLIDING SCALE 30 Days Sliding Scale As Directed.150-199 1 Unit; 200-249 3 units; 250-299 5 Units; 300-349 7 Units; Reported Lasix (Furosemide) 40 Mg Tab 40 Mg PO DAILY Tylenol (Acetaminophen) 325 Mg Tab 325 Mg PO Q4H PRN Orazinc (Zinc Sulfate) 220 Mg (50 Mg Zinc) Cap 220 Mg PO DAILY Metoprolol Tartrate 50 Mg Tab 50 Mg PO BID Effient (Prasugrel) 10 Mg Tab 10 Mg PO DAILY Aspirin 81 Mg Chew 81 Mg CHEW DAILY Review of Systems Except as stated in HPI: all other systems reviewed are Neg Physical Exam Narrative GENERAL: Well-nourished, well-developed patient. SKIN: Warm and dry. HEAD: Normocephalic and atraumatic. EYES: No injection or drainage. ENT: No nasal drainage noted. NECK: Supple, trachea midline. CARDIOVASCULAR: Regular rate and rhythm RESPIRATORY: crackles bilaterally at apices. No accessory muscle use. EXTREMITIES: edema to knees bilaterally NEUROLOGICAL: Awake. moves extremities and sensory grossly within normal limits. Normal speech. Data Data Last Documented VS Vital Signs Date Time Temp Pulse Resp B/P (MAP) Pulse Ox O2 Delivery O2 Flow Rate FiO2 11/25/17 15:25 96.6 95 14 214/100 (138) 95 Orders Orders Complete Blood Count With Diff (11/25/17 15:35) Comprehensive Metabolic Panel (11/25/17 15:35) Lipase (11/25/17 15:35) B-Type Natriuretic Peptide (11/25/17 15:35) Magnesium (Mg) (11/25/17 15:35) Ckmb (Isoenzyme) Profile (11/25/17 15:35) Troponin I (11/25/17 15:35) Electrocardiogram (11/25/17 15:35) Chest, Pa & Lat (11/25/17 ) Furosemide Inj (Lasix Inj) (11/25/17 16:45) Ecg Monitoring (11/25/17 16:31) Iv Access Insert/Monitor (11/25/17 16:31) Oximetry (11/25/17 16:31) Sodium Chloride 0.9% Flush (Ns Flush) (11/25/17 16:45) Admit Order (Ed Use Only) (11/25/17 18:15) Labs Laboratory Tests Test 11/25/17 17:00 White Blood Count 6.7 TH/MM3 Red Blood Count 3.14 MIL/MM3 Hemoglobin 10.0 GM/DL Hematocrit 27.8 % Mean Corpuscular Volume 88.4 FL Mean Corpuscular Hemoglobin 31.9 PG Mean Corpuscular Hemoglobin Concent 36.1 % Red Cell Distribution Width 16.1 % Platelet Count 340 TH/MM3 Mean Platelet Volume 8.1 FL Neutrophils (%) (Auto) 68.2 % Lymphocytes (%) (Auto) 18.5 % Monocytes (%) (Auto) 8.6 % Eosinophils (%) (Auto) 3.9 % Basophils (%) (Auto) 0.8 % Neutrophils # (Auto) 4.6 TH/MM3 Lymphocytes # (Auto) 1.2 TH/MM3 Monocytes # (Auto) 0.6 TH/MM3 Eosinophils # (Auto) 0.3 TH/MM3 Basophils # (Auto) 0.1 TH/MM3 CBC Comment DIFF FINAL Differential Comment Blood Urea Nitrogen 46 MG/DL Creatinine 1.76 MG/DL Random Glucose 182 MG/DL Total Protein 5.7 GM/DL Albumin 1.8 GM/DL Calcium Level 9.0 MG/DL Magnesium Level 1.9 MG/DL Alkaline Phosphatase 155 U/L Aspartate Amino Transf (AST/SGOT) 18 U/L Alanine Aminotransferase (ALT/SGPT) 17 U/L Total Bilirubin 0.2 MG/DL Sodium Level 141 MEQ/L Potassium Level 4.2 MEQ/L Chloride Level 110 MEQ/L Carbon Dioxide Level 22.0 MEQ/L Anion Gap 9 MEQ/L Estimat Glomerular Filtration Rate 29 ML/MIN Total Creatine Kinase 58 U/L Troponin I 0.03 NG/ML B-Type Natriuretic Peptide 1181 PG/ML Lipase 45 U/L MDM Medical Decision Making Medical Screen Exam Complete: Yes Emergency Medical Condition: Yes Medical Record Reviewed: Yes (pmh confirmed) Interpretation(s) Last 24 hours Impressions Chest X-Ray 11/25/17 0000 Signed Impressions: Service Date/Time: October 15:47 - CONCLUSION: 1. Increased interstitial markings bilaterally characteristic of pulmonary edema. 2. There is a new right lower lung infiltrate. 3. Increasing left lower lung infiltrate. David Lezama MD CBC & BMP Diagram 11/25/17 17:00 Total Protein 5.7 L, Albumin 1.8 L, Calcium Level 9.0, Magnesium Level 1.9, Alkaline Phosphatase 155 H, Aspartate Amino Transf (AST/SGOT) 18, Alanine Aminotransferase (ALT/SGPT) 17, Total Bilirubin 0.2 Differential Diagnosis chf, anemia, renal failure, uri Narrative Course Will follow lab work ordered from triage. X-ray reviewed and given history will dose with Lasix and monitor Labs confirms CHF exacerbation. We'll admit for observation for further care. Physician Communication Physician Communication dr link agrees to admit Diagnosis Primary Impression: CHF (congestive heart failure) Qualified Codes: I50.9 - Heart failure, unspecified Admitting Information Admitting Physician Requests: Observation Sonia Leroy MD Nov 25, 2017 16:58
[2017-11-25 17:31] LABS: AUTOMATED NEUTROPHIL # 4.6 TH/MM3 (1.8-7.7); BASOPHIL # 0.1 TH/MM3 (0-0.2); BASOPHIL % 0.8 % (0.0-2.0); EOSINOPHIL # 0.3 TH/MM3 (0-0.4); EOSINOPHIL % 3.9 % (0.0-4.0); HEMATOCRIT 27.8 % (35.0-46.0); LYMPH % 18.5 % (9.0-44.0); LYMPHOCYTE # 1.2 TH/MM3 (1.0-4.8); MEAN CELL VOLUME 88.4 FL (80.0-100.0); MEAN CORPUSCULAR HEMOGLOBIN 31.9 PG (27.0-34.0); MEAN PLATELET VOLUME 8.1 FL (7.0-11.0); MONO % 8.6 % (0.0-8.0); MONOCYTE # 0.6 TH/MM3 (0-0.9); NEUT % 68.2 % (16.0-70.0); PLATELET COUNT 340 TH/MM3 (150-450); RED BLOOD COUNT 3.14 MIL/MM3 (4.00-5.30); RED CELL DISTRIBUTION WIDTH 16.1 % (11.6-17.2); WHITE BLOOD COUNT 6.7 TH/MM3 (4.0-11.0)
[2017-11-25 17:35] LABS: MEAN CORPUSCULAR HGB CONC 36.1 % (32.0-36.0)
[2017-11-25 17:41] LABS: ALBUMIN 1.8 GM/DL (3.4-5.0); ALT (GPT) 17 U/L (10-53); AST (GOT) 18 U/L (15-37); BLOOD UREA NITROGEN 46 MG/DL (7-18); CHLORIDE 110 MEQ/L (98-107); CREATININE 1.76 MG/DL (0.50-1.00); GLOMERULAR FILTRATION RATE 29 ML/MIN (>89); GLUCOSE,RANDOM 182 MG/DL (74-106); LIPASE 45 U/L (73-393); MAGNESIUM 1.9 MG/DL (1.5-2.5); SODIUM (NA) 141 MEQ/L (136-145)
[2017-11-25 17:45] LABS: ALKALINE PHOSPHATASE 155 U/L (45-117); TOTAL BILIRUBIN ADULT 0.2 MG/DL (0.2-1.0); TOTAL PROTEIN 5.7 GM/DL (6.4-8.2); TROPONIN I 0.03 NG/ML (0.02-0.05)
[2017-11-25] MEDS ORDERED: SODIUM CHLORIDE 0.9% FLUSH 10 ML FLUSH IV FLUSH PRN (18:30)
[2017-11-25] MEDS ORDERED: BISACODYL 10 MG SUPP RECTAL PRN (18:30)
[2017-11-25] MEDS ORDERED: LACTULOSE SYRUP 20 GM/30 ML CUP PO PRN (18:30)
[2017-11-25] MEDS ORDERED: DEXTROSE 50% IN WATER 50 ML VIAL(D50) IV PUSH PRN (18:30)
[2017-11-25] MEDS ORDERED: MAGNESIUM HYDROXIDE SUSP 30 ML CUP PO PRN (18:30)
[2017-11-25] MEDS ORDERED: GLUCAGON 1 MG/ML VIAL OTHER PRN (18:30)
[2017-11-25] MEDS ORDERED: ONDANSETRON HCL 4 MG/2 ML VIAL IVP PRN (18:30)
[2017-11-25] MEDS ORDERED: SENNOSIDES 8.6 MG TAB PO PRN (18:30)
[2017-11-25] MEDS ORDERED: NALOXONE HCL 0.4 MG/ML AMP IV PUSH PRN (18:30)
[2017-11-25] MEDS ORDERED: NITROGLYCERIN 2% OINT 1 GM PACKET TOP ONE (19:00)
[2017-11-25 19:07] VITALS: BP 192/88; PULSE 70; RESP 15; O2SAT 94
--- NOTE | 2017-11-25 19:07 | HHI.HP ---
HPI Service [facility] Primary Care Physician NICHOLAS Claire Admission Diagnosis chf exacerbation Diagnoses: (1) CHF (congestive heart failure) Diagnosis: Principal (2) PNA (pneumonia) Diagnosis: Principal (3) C. difficile colitis Diagnosis: Principal (4) Renal insufficiency Diagnosis: Principal (5) HTN (hypertension) Diagnosis: Principal (6) DM (diabetes mellitus) Diagnosis: Principal Travel History International Travel<30 Days: No Contact w/Intl Traveler <30 Da: No Traveled to Known Affected Are: No History of Present Illness This is a 66-year-old female with a PMH of HTN, Hyperlipidemia, Iron Deficiency Anemia, CAD, COPD, O2 Dependent, DM, CHF (Echo 08/11/17 w/ EF 60-65%) and C. Diff Colitis who presented to the ER w/ complaints of bilateral lower extremity swelling x3 days. Notes symptoms worse w/ prolonged standing or walking. Moderate severity. Reports associated SOB, especially w/ exertion. Denies fever, chills, cough or chest pain. States she was seen by PCP today and referred to ER for further eval of her SOB. Recent admit 11/09-11/14/17 for c/ o abdominal pain and diarrhea, found to have C Diff Colitis, d/c'd w/ Flagyl 500mg PO tid, reports taking medications as prescribed, colitis improved. On arrival, BP 214/100, HR 95, O2 sat 94% on RA, Afebrile. CBC essentially baseline. Creatinine 1.76, previous 2.15 on 11/14/17. BNP 1181. Troponin 0.03. CXR with increased interstitial markings bilaterally characteristic of pulmonary edema, new right lower lung infiltrate, increasing left lower lung infiltrate. S/p Lasix IV in ER. Review of Systems Except as stated in HPI: all other systems reviewed are Neg ROS: 14 point review of systems otherwise negative. Past Family Social History Past Medical History PMH: HTN, Hyperlipidemia, Iron Deficiency Anemia, CAD, COPD, O2 Dependent, DM, CHF (Echo 08/11/17 w/ EF 60-65%) and C. Diff Colitis Past Surgical History PAST SURGICAL HISTORY: Appendectomy, Cardiac Stent, , Hysterectomy, Tonsillectomy Left Wrist Ganglion Cyst Allergies: Coded Allergies: propoxyphene (Verified Allergy, Mild, RASH, 11/09/17) Family History PAST FAMILY HISTORY: Reviewed. No h/o DM or CAD Social History PAST SOCIAL HISTORY: Negative for alcohol, tobacco or drugs. Physical Exam Vital Signs Vital Signs Date Time Temp Pulse Resp B/P (MAP) Pulse Ox O2 Delivery O2 Flow Rate FiO2 11/25/17 15:25 96.6 95 14 214/100 (138) 95 Physical Exam PE: GENERAL: Pleasant middle-aged female in no acute distress. HEENT: PERRLA, EOMI. No scleral icterus or conjunctival pallor. No lid lag or facial droop. CARDIOVASCULAR: Regular rate and rhythm. No obvious murmurs to auscultation. No chest tenderness to palpation. RESPIRATORY: No obvious rhonchi or wheezing. Clear to auscultation. Breath sounds equal bilaterally, mildly decreased at bases. GASTROINTESTINAL: Abdomen soft, non-tender, nondistended. BS normal. MUSCULOSKELETAL: Extremities without clubbing, cyanosis. +2 pitting edema bilaterally. No obvious deformities. NEUROLOGICAL: Awake, alert and oriented x4. No focal neurologic deficits. Moving both upper and lower extremities spontaneously. Laboratory Laboratory Tests Test 11/25/17 17:00 White Blood Count 6.7 Red Blood Count 3.14 Hemoglobin 10.0 Hematocrit 27.8 Mean Corpuscular Volume 88.4 Mean Corpuscular Hemoglobin 31.9 Mean Corpuscular Hemoglobin Concent 36.1 Red Cell Distribution Width 16.1 Platelet Count 340 Mean Platelet Volume 8.1 Neutrophils (%) (Auto) 68.2 Lymphocytes (%) (Auto) 18.5 Monocytes (%) (Auto) 8.6 Eosinophils (%) (Auto) 3.9 Basophils (%) (Auto) 0.8 Neutrophils # (Auto) 4.6 Lymphocytes # (Auto) 1.2 Monocytes # (Auto) 0.6 Eosinophils # (Auto) 0.3 Basophils # (Auto) 0.1 CBC Comment DIFF FINAL Differential Comment Blood Urea Nitrogen 46 Creatinine 1.76 Random Glucose 182 Total Protein 5.7 Albumin 1.8 Calcium Level 9.0 Magnesium Level 1.9 Alkaline Phosphatase 155 Aspartate Amino Transf (AST/SGOT) 18 Alanine Aminotransferase (ALT/SGPT) 17 Total Bilirubin 0.2 Sodium Level 141 Potassium Level 4.2 Chloride Level 110 Carbon Dioxide Level 22.0 Anion Gap 9 Estimat Glomerular Filtration Rate 29 Total Creatine Kinase 58 Troponin I 0.03 B-Type Natriuretic Peptide 1181 Lipase 45 Result Diagram: 11/25/17169911/25/171699 Caprini VTE Risk Assessment Caprini VTE Risk Assessment: No/Low Risk (score <= 1) Caprini Risk Assessment Model Point Value = 1 Point Value = 2 Point Value = 3 Point Value = 5 Age 41-60 Minor surgery BMI > 25 kg/m2 Swollen legs Varicose veins or History of unexplained or recurrent spontaneous Oral contraceptives or hormone replacement Sepsis (< 1 month) Serious lung disease, including pneumonia (< 1 month) Abnormal pulmonary function Acute myocardial infarction Congestive heart failure (< 1 month) History of inflammatory bowel disease Medical patient at bed rest Age 61-74 Arthroscopic surgery Major open surgery (> 45 min) Laparoscopic surgery (> 45 min) Malignancy Confined to bed (> 72 hours) Immobilizing plaster cast Central venous access Age >= 75 History of VTE Family history of VTE Factor V Leiden Prothrombin [id number] Lupus anticoagulant Anticardiolipin antibodies Elevated serum homocysteine Heparin-induced thrombocytopenia Other congenital or acquired thrombophilia Stroke (< 1 month) Elective arthroplasty Hip, pelvis, or leg fracture Acute spinal cord injury (< 1 month) Prophylaxis Regimen Total Risk Factor Score Risk Level Prophylaxis Regimen 0-1 Low Early ambulation 2 Moderate Order ONE of the following: *Sequential Compression Device (SCD) *Heparin 5000 units SQ BID 3-4 Higher Order ONE of the following medications: *Heparin 5000 units SQ TID *Enoxaparin/Lovenox 40 mg SQ daily (WT < 150 kg, CrCl > 30 mL/min) *Enoxaparin/Lovenox 30 mg SQ daily (WT < 150 kg, CrCl > 10-29 mL/min) *Enoxaparin/Lovenox 30 mg SQ BID (WT < 150 kg, CrCl > 30 mL/min) AND/OR *Sequential Compression Device (SCD) 5 or more Highest Order ONE of the following medications: *Heparin 5000 units SQ TID (Preferred with Epidurals) *Enoxaparin/Lovenox 40 mg SQ daily (WT < 150 kg, CrCl > 30 mL/min) *Enoxaparin/Lovenox 30 mg SQ daily (WT < 150 kg, CrCl > 10-29 mL/min) *Enoxaparin/Lovenox 30 mg SQ BID (WT < 150 kg, CrCl > 30 mL/min) AND *Sequential Compression Device (SCD) Assessment and Plan Problem List: (1) CHF (congestive heart failure) ICD Code: I50.9 - Heart failure, unspecified (2) Renal insufficiency ICD Code: N28.9 - Disorder of kidney and ureter, unspecified (3) C. difficile colitis ICD Code: A04.72 - Enterocolitis due to Clostridium difficile, not specified as recurrent (4) HTN (hypertension) ICD Code: I10 - Essential (primary) hypertension Status: Chronic (5) PNA (pneumonia) ICD Code: J18.9 - Pneumonia, unspecified organism (6) DM (diabetes mellitus) ICD Code: E11.9 - Type 2 diabetes mellitus without complications Assessment and Plan A/P: 1. CHF: Acute on Chronic. Diastolic. Echo 08/11/17 w/ EF 60-65%. BNP 1181, CXR w/ increased interstitial marking bilaterally characteristic of pulmonary edema, images reviewed by me. S/p Lasix IV in ER. Monitor I/O, continue w/ Lasix IV bid, resume home Metolazone. DuoNeb prn for SOB. Initial trop 0.03, will check serial cardiac enzymes to r/o underlying ischemia as cause for CHF exacerbation. Currently chest pain free. 2. Renal Insufficiency: Chronic. Creatinine 1.76, previously 2.15 on . Monitor creatinine, especially in light of need for diuresis. Repeat labs in a.m. 3. PNA: CXR w/ new right lower lung infiltrate, start Levaquin IV. DuoNeb prn for SOB as needed. 4. C Diff Colitis: Recent diagnosis on last admit 11/09-11/14/17. Resume home Flagyl 500mg PO tid, place on Contact Precautions. Monitor I/O. 5. HTN: Uncontrolled. BP 214/100, HR 95 on arrival. Give Lopressor 5mg IV x1 now, monitor BP, resume home medications, further antihypertensives as needed for BP >180 6. DM: Sliding scale w/ Accu-Cheks. Resume home Levemir. 7. DVT Prophylaxis: On Effient. 8. Social work for d/c planning as needed. 9. Previous records reviewed by me and case discussed w/ ER physician at length. Problem Qualifiers (1) CHF (congestive heart failure): Qualified Codes: I50.9 - Heart failure, unspecified Nataly Marcus MD Nov 25, 2017 19:07
[2017-11-25] MEDS ORDERED: METOPROLOL TARTRATE 5 MG/5 ML VIAL IV PUSH ONE (19:45)
[2017-11-25] MEDS: INSULIN DETEMIR 100 UNITS/ML VIAL SQ SCH (19:56)
[2017-11-25] MEDS: INSULIN ASPART SUPPLEMENTAL SCALE SQ SCH (19:57)
[2017-11-25] MEDS ORDERED: hydrALAZINE HCL 20 MG/ML VIAL IV PUSH ONE (21:00)
[2017-11-25] MEDS: SODIUM CHLORIDE 0.9% FLUSH 10 ML FLUSH IV FLUSH SCH (21:00)
[2017-11-25 21:03] VITALS: BP 206/90; PULSE 77; RESP 18
[2017-11-25] MEDS: ATORVASTATIN 40 MG TAB PO SCH (21:33)
[2017-11-25] MEDS: LEVOFLOXACIN 750 MG PREMIX INJ 150 ML IV SCH (21:33)
[2017-11-25] MEDS: DOCUSATE SODIUM 50 MG/SENNA 8.6 MG TAB PO SCH (21:34)
[2017-11-25] MEDS: METOPROLOL TARTRATE 50 MG TAB PO SCH (21:34)
[2017-11-25 21:59] VITALS: BP 173/74; PULSE 77; RESP 16; O2SAT 95
[2017-11-25] MEDS: MORPHINE SULFATE 2 MG/ML INJ IV PUSH PRN (22:00)
[2017-11-25 23:30] VITALS: BP 178/76; PULSE 73; RESP 18; TEMP 97.8; O2SAT 93
[2017-11-26] VITALS (9 sets, daily range): BP systolic 142–195; BP diastolic 60–89; PULSE 60–68; RESP 18–20; TEMP 97.9–98.2; O2SAT 94–98
[2017-11-26] MEDS: INSULIN DETEMIR 100 UNITS/ML VIAL SQ SCH ×2 (06:30→19:00)
[2017-11-26] MEDS: INSULIN ASPART SUPPLEMENTAL SCALE SQ SCH ×4 (08:00→20:41)
[2017-11-26] MEDS: DOCUSATE SODIUM 50 MG/SENNA 8.6 MG TAB PO SCH ×2 (09:00→20:41)
[2017-11-26] MEDS: FUROSEMIDE 40 MG/4 ML VIAL IV PUSH SCH ×2 (10:06→17:17)
[2017-11-26] MEDS: ISOSORBIDE MONONITRATE 60 MG TAB PO SCH (10:06)
[2017-11-26] MEDS: metroNIDAZOLE 500 MG TAB PO SCH ×3 (10:06→17:17)
[2017-11-26] MEDS: PRASUGREL 10 MG TAB PO SCH (10:06)
[2017-11-26] MEDS: LACTOBACILLUS ACIDOPHILUS TAB PO SCH ×3 (10:06→17:17)
[2017-11-26] MEDS: METOPROLOL TARTRATE 50 MG TAB PO SCH ×2 (10:06→21:33)
[2017-11-26] MEDS: SODIUM CHLORIDE 0.9% FLUSH 10 ML FLUSH IV FLUSH SCH ×2 (10:07→21:35)
[2017-11-26] MEDS: ASPIRIN 81 MG CHEW TAB CHEW SCH (10:07)
--- NOTE | 2017-11-26 11:06 | HHI.PR ---
Subjective Remarks Breathing is improved. Patient reports she is not quite back to baseline. She is agreeable to attempt ambulation with PT. Objective Vital Signs Date Time Temp Pulse Resp B/P (MAP) Pulse Ox O2 Delivery O2 Flow Rate FiO2 11/26/17 09:43 65 18 142/60 (87) 95 11/26/17 06:32 97.9 68 174/72 (106) 97 11/26/17 01:53 62 11/25/17 23:30 97.8 73 18 178/76 (110) 93 11/25/17 22:21 11/25/17 21:59 77 16 173/74 (107) 95 Room Air 11/25/17 21:03 77 18 206/90 (128) Room Air 95 11/25/17 19:07 70 15 192/88 (122) 94 Room Air 11/25/17 17:00 16 96 Room Air 11/25/17 15:25 96.6 95 14 214/100 (138) 95 I/O 11/25/17 11/25/17 11/25/17 11/26/17 11/26/17 11/26/17 07:00 15:00 23:00 07:00 15:00 23:00 Intake Total 120 ml 360 ml Output Total 700 ml Balance 120 ml -340 ml Intake Oral 120 ml 360 ml Output Urine Total 700 ml # Bowel Movements 1 Result Diagram: 11/25/17 1700 11/25/17 1700 Other Results GENERAL: NAD, A&Ox3 HEAD: Normocephalic. NECK: Supple, trachea midline. No lymphadenopathy. EYES: No scleral icterus. No injection or drainage. CARDIOVASCULAR: Regular rate and rhythm without murmurs, gallops, or rubs. RESPIRATORY: Breath sounds equal bilaterally. No accessory muscle use. Coarse breath sounds bilaterally. GASTROINTESTINAL: Abdomen soft, non-tender, nondistended. MUSCULOSKELETAL: No cyanosis, or edema. SKIN: Warm and dry. NEURO: No focal neurological deficitis. A/P Problem List: (1) PNA (pneumonia) ICD Code: J18.9 - Pneumonia, unspecified organism (2) C. difficile colitis ICD Code: A04.72 - Enterocolitis due to Clostridium difficile, not specified as recurrent (3) CHF (congestive heart failure) ICD Code: I50.9 - Heart failure, unspecified Assessment and Plan Assessment and Plan 66-year-old female admitted secondary to CHF exacerbation likely triggered by pneumonia. CHF exacerbation Acute on chronic CHF Diastolic CHF Patient has diastolic dysfunction with an EF of 60-65% based on echo from Continue IV Lasix Monitor urine output Follow renal function Community-acquired pneumonia Continue Levaquin Oxygen supplementation as needed Duo nebs as needed Follow for improvement in respiratory status Subacute C. difficile colitis Patient has been on Flagyl for approximately 2 weeks She will need to be restarted on antibiotics for pneumonia Add by mouth vancomycin Follow clinically Renal insufficiency Baseline creatinine is around 2.0 Avoid nephrotoxins Follow renal function Diabetes mellitus type 2 Follow blood sugars Insulin sliding scale Diabetic diet DVT prophylaxis Continue Effient Problem Qualifiers (1) CHF (congestive heart failure): Qualified Codes: I50.9 - Heart failure, unspecified Wally Gill MD Nov 26, 2017 11:06
[2017-11-26] MEDS: METOLAZONE 2.5 MG TAB PO SCH (11:13)
[2017-11-26] MEDS: MORPHINE SULFATE 2 MG/ML INJ IV PUSH PRN ×2 (11:13→21:36)
[2017-11-26] MEDS: VANCOMYCIN 500 MG VIAL (FOR ORAL USE ONLY) PO SCH ×3 (13:14→21:36)
--- NOTE | 2017-11-26 13:54 | EKG ---
Date Performed: 11/25/2017 Time Performed: 16:40:28 PTAGE: 66 years EKG: Sinus rhythm LOW QRS VOLTAGE IN EXTREMITY LEADS POSSIBLE ANTERIOR MYOCARDIAL INFARCTION ABNORMAL ECG PREVIOUS TRACING : 11/09/2017 14.58 Since prior tracing, sinus rate has increased. DOCTOR: Demetrio Rowell Interpretating Date/Time 11/26/2017 13:54:08
[2017-11-26 15:16] LABS: AUTOMATED NEUTROPHIL # 4.1 TH/MM3 (1.8-7.7); BASOPHIL % 0.6 % (0.0-2.0); EOSINOPHIL # 0.2 TH/MM3 (0-0.4); EOSINOPHIL % 3.8 % (0.0-4.0); HEMATOCRIT 27.9 % (35.0-46.0); HEMOGLOBIN 9.2 GM/DL (11.6-15.3); LYMPH % 17.5 % (9.0-44.0); MEAN CELL VOLUME 88.9 FL (80.0-100.0); MEAN CORPUSCULAR HEMOGLOBIN 29.4 PG (27.0-34.0); MEAN CORPUSCULAR HGB CONC 33.1 % (32.0-36.0); MEAN PLATELET VOLUME 7.9 FL (7.0-11.0); MONO % 8.7 % (0.0-8.0); MONOCYTE # 0.5 TH/MM3 (0-0.9); NEUT % 69.4 % (16.0-70.0); PLATELET COUNT 327 TH/MM3 (150-450); RED BLOOD COUNT 3.14 MIL/MM3 (4.00-5.30); RED CELL DISTRIBUTION WIDTH 16.3 % (11.6-17.2)
[2017-11-26 15:36] LABS: ALBUMIN 1.6 GM/DL (3.4-5.0); AST (GOT) 16 U/L (15-37); BICARBONATE 25.7 MEQ/L (21.0-32.0); BLOOD UREA NITROGEN 46 MG/DL (7-18); CALCIUM 8.9 MG/DL (8.5-10.1); CHLORIDE 112 MEQ/L (98-107); CREATININE 1.83 MG/DL (0.50-1.00); GLOMERULAR FILTRATION RATE 28 ML/MIN (>89); GLUCOSE,RANDOM 82 MG/DL (74-106); SODIUM (NA) 144 MEQ/L (136-145)
[2017-11-26 15:40] LABS: ALKALINE PHOSPHATASE 134 U/L (45-117); ALT (GPT) 13 U/L (10-53); TOTAL BILIRUBIN ADULT 0.2 MG/DL (0.2-1.0); TROPONIN I 0.02 NG/ML (0.02-0.05)
[2017-11-26] MEDS: ATORVASTATIN 40 MG TAB PO SCH (21:33)
[2017-11-26] MEDS ORDERED: DEXTROSE 50% IN WATER 50 ML SYRINGE IV PUSH ONE (22:15)
[2017-11-26] MEDS ORDERED: NIFEdipine 30 MG SUSTAINED RELEASE TAB PO ONE (23:15)
[2017-11-27] VITALS (13 sets, daily range): BP systolic 133–197; BP diastolic 62–100; PULSE 62–70; RESP 16–24; TEMP 97.6–98.3; O2SAT 92–94
[2017-11-27] MEDS ORDERED: cloNIDine HCL 0.1 MG TAB PO ONE (01:45)
[2017-11-27] MEDS: INSULIN DETEMIR 100 UNITS/ML VIAL SQ SCH (05:51)
[2017-11-27] MEDS: MORPHINE SULFATE 2 MG/ML INJ IV PUSH PRN ×2 (06:01→13:13)
[2017-11-27 07:56] LABS: AUTOMATED NEUTROPHIL # 3.5 TH/MM3 (1.8-7.7); BASOPHIL % 0.7 % (0.0-2.0); EOSINOPHIL # 0.2 TH/MM3 (0-0.4); EOSINOPHIL % 4.2 % (0.0-4.0); HEMATOCRIT 25.4 % (35.0-46.0); HEMOGLOBIN 8.4 GM/DL (11.6-15.3); LYMPH % 22.4 % (9.0-44.0); LYMPHOCYTE # 1.3 TH/MM3 (1.0-4.8); MEAN CELL VOLUME 88.2 FL (80.0-100.0); MEAN CORPUSCULAR HEMOGLOBIN 29.4 PG (27.0-34.0); MEAN CORPUSCULAR HGB CONC 33.3 % (32.0-36.0); MONO % 11.7 % (0.0-8.0); MONOCYTE # 0.7 TH/MM3 (0-0.9); PLATELET COUNT 287 TH/MM3 (150-450); RED BLOOD COUNT 2.88 MIL/MM3 (4.00-5.30); RED CELL DISTRIBUTION WIDTH 16.6 % (11.6-17.2); WHITE BLOOD COUNT 5.7 TH/MM3 (4.0-11.0)
[2017-11-27] MEDS: INSULIN ASPART SUPPLEMENTAL SCALE SQ SCH ×4 (08:00→23:11)
[2017-11-27] MEDS: DOCUSATE SODIUM 50 MG/SENNA 8.6 MG TAB PO SCH ×2 (09:52→21:00)
[2017-11-27] MEDS: METOLAZONE 2.5 MG TAB PO SCH (09:52)
[2017-11-27] MEDS: ISOSORBIDE MONONITRATE 60 MG TAB PO SCH (09:53)
[2017-11-27] MEDS: ASPIRIN 81 MG CHEW TAB CHEW SCH (09:53)
[2017-11-27] MEDS: metroNIDAZOLE 500 MG TAB PO SCH ×3 (09:53→18:30)
[2017-11-27] MEDS: SODIUM CHLORIDE 0.9% FLUSH 10 ML FLUSH IV FLUSH SCH ×2 (09:53→23:00)
[2017-11-27] MEDS: VANCOMYCIN 500 MG VIAL (FOR ORAL USE ONLY) PO SCH ×4 (09:54→23:02)
[2017-11-27] MEDS: METOPROLOL TARTRATE 50 MG TAB PO SCH ×2 (09:54→23:01)
[2017-11-27] MEDS: LACTOBACILLUS ACIDOPHILUS TAB PO SCH ×3 (09:54→18:30)
[2017-11-27] MEDS: PRASUGREL 10 MG TAB PO SCH (09:54)
[2017-11-27] MEDS: FUROSEMIDE 40 MG/4 ML VIAL IV PUSH SCH ×2 (09:55→18:30)
[2017-11-27] MEDS ORDERED: cloNIDine HCL 0.1 MG TAB PO PRN (10:15)
--- NOTE | 2017-11-27 10:18 | HHI.PR ---
Subjective Remarks Respiratory status is improved, per patient. She does have some loose stools today. This has been her baseline course since being treated for C. difficile starting 2 weeks ago. Blood glucose is low yesterday and overnight. Blood pressures are uncontrolled. Objective Vital Signs Date Time Temp Pulse Resp B/P (MAP) Pulse Ox O2 Delivery O2 Flow Rate FiO2 11/27/17 08:11 97.7 65 17 152/70 (97) 94 11/27/17 05:47 97.9 65 16 160/64 (96) 93 11/27/17 04:01 68 11/27/17 03:32 180/80 (113) 11/27/17 02:16 70 187/100 (129) Manual Cuff/Auscultation 11/27/17 01:25 184/70 (108) Automatic Cuff 11/27/17 01:21 94 Nasal Cannula 2.00 11/27/17 01:18 66 18 197/74 (115) 94 11/27/17 00:08 65 11/26/17 23:36 98.1 64 18 184/89 (120) 95 11/26/17 22:43 191/69 (109) 11/26/17 20:33 98.1 63 18 195/81 (119) 94 11/26/17 20:09 61 11/26/17 15:57 98.2 60 20 168/67 (100) 96 11/26/17 12:18 98.2 68 18 168/67 (100) 98 I/O 11/26/17 11/26/17 11/26/17 11/27/17 11/27/17 11/27/17 07:00 15:00 23:00 07:00 15:00 23:00 Intake Total 480 ml 240 ml 750 ml Output Total 1050 ml 1000 ml Balance -570 ml 240 ml -250 ml Intake Oral 480 ml 240 ml 750 ml Output Urine Total 1050 ml 1000 ml # Bowel Movements 1 4 Result Diagram: 11/27/17 0720 11/26/17 1458 Objective Remarks GENERAL: NAD, A&Ox3 HEAD: Normocephalic. NECK: Supple, trachea midline. No lymphadenopathy. EYES: No scleral icterus. No injection or drainage. CARDIOVASCULAR: Regular rate and rhythm without murmurs, gallops, or rubs. RESPIRATORY: Breath sounds equal bilaterally. No accessory muscle use. GASTROINTESTINAL: Abdomen soft, non-tender, nondistended. MUSCULOSKELETAL: No cyanosis, or edema. SKIN: Warm and dry. NEURO: No focal neurological deficitis. A/P Problem List: (1) PNA (pneumonia) ICD Code: J18.9 - Pneumonia, unspecified organism (2) C. difficile colitis ICD Code: A04.72 - Enterocolitis due to Clostridium difficile, not specified as recurrent (3) CHF (congestive heart failure) ICD Code: I50.9 - Heart failure, unspecified Assessment and Plan Assessment and Plan 66-year-old female admitted secondary to CHF exacerbation likely triggered by pneumonia. Hypoglycemia Decrease detemir insulin dose by half Follow blood sugars Uncontrolled hypertension Continue metoprolol Begin amlodipine Begin as needed clonidine Follow blood pressures CHF exacerbation Acute on chronic CHF Diastolic CHF Patient has diastolic dysfunction with an EF of 60-65% based on echo from Continue IV Lasix Monitor urine output Follow renal function Community-acquired pneumonia Continue Levaquin Oxygen supplementation as needed Duo nebs as needed Follow for improvement in respiratory status Subacute C. difficile colitis Patient has been on Flagyl for approximately 2 weeks She will need to be restarted on antibiotics for pneumonia Add by mouth vancomycin Follow clinically Renal insufficiency Baseline creatinine is around 2.0 Avoid nephrotoxins Follow renal function Diabetes mellitus type 2 Follow blood sugars Insulin sliding scale Diabetic diet DVT prophylaxis Continue Effient Problem Qualifiers (1) CHF (congestive heart failure): Qualified Codes: I50.9 - Heart failure, unspecified Wally Gill MD Nov 27, 2017 10:18
[2017-11-27] MEDS ORDERED: amLODIPine BESYLATE 5 MG TAB PO ONE (10:30)
[2017-11-27] MEDS: LEVOFLOXACIN 750 MG PREMIX INJ 150 ML IV SCH (23:01)
[2017-11-27] MEDS: ATORVASTATIN 40 MG TAB PO SCH (23:01)
[2017-11-28] VITALS (7 sets, daily range): BP systolic 130–176; BP diastolic 57–75; PULSE 68–72; RESP 16–18; TEMP 97.9–98.5; O2SAT 92–94
[2017-11-28] MEDS: metroNIDAZOLE 500 MG TAB PO SCH ×2 (08:50→12:50)
[2017-11-28] MEDS: LACTOBACILLUS ACIDOPHILUS TAB PO SCH ×2 (08:50→12:50)
[2017-11-28] MEDS: ISOSORBIDE MONONITRATE 60 MG TAB PO SCH (08:50)
[2017-11-28] MEDS: PRASUGREL 10 MG TAB PO SCH (08:51)
[2017-11-28] MEDS: METOLAZONE 2.5 MG TAB PO SCH (08:51)
[2017-11-28] MEDS: METOPROLOL TARTRATE 50 MG TAB PO SCH (08:51)
[2017-11-28] MEDS: ASPIRIN 81 MG CHEW TAB CHEW SCH (08:52)
[2017-11-28] MEDS: INSULIN ASPART SUPPLEMENTAL SCALE SQ SCH ×2 (08:52→12:50)
[2017-11-28] MEDS: FUROSEMIDE 40 MG/4 ML VIAL IV PUSH SCH (08:52)
[2017-11-28] MEDS: SODIUM CHLORIDE 0.9% FLUSH 10 ML FLUSH IV FLUSH SCH (08:53)
[2017-11-28] MEDS: DOCUSATE SODIUM 50 MG/SENNA 8.6 MG TAB PO SCH (08:53)
[2017-11-28] MEDS ORDERED: INSULIN DETEMIR 100 UNITS/ML VIAL SQ SCH (09:00)
[2017-11-28] MEDS ORDERED: amLODIPine BESYLATE 5 MG TAB PO SCH (09:00)
--- NOTE | 2017-11-28 10:31 | HHI.FF ---
Face to Face Verification Diagnosis: (1) CHF (congestive heart failure) (2) COPD (chronic obstructive pulmonary disease) Physical Therapy Order: Evaluate and Treat, Improve ambulation, Strength and gait training I have seen patient Brinda Maynard on 11/28/17. My clinical findings support the need for the requested home health care services because: Ltd mobility - disease progression Patient has SOB Deconditioned w/ increased weakness Limited ability to care for self High risk of falls I certify that my clinical findings support that this patient is homebound because: Hx COPD- exertion dyspnea/weakness Unsteady gait/balance Unsafe to leave home unassisted Unable to use public transportation Poor cardiac reserve Wally Gill MD Nov 28, 2017 10:31
[2017-11-28] MEDS ORDERED: CLON.1 PO (10:35)
[2017-11-28] MEDS ORDERED: LACTTAB8 PO (10:35)
[2017-11-28] MEDS ORDERED: AMLO10 PO (10:35)
[2017-11-28] MEDS ORDERED: LEVA750T9 PO (10:35)
[2017-11-28] MEDS: VANCOMYCIN 500 MG VIAL (FOR ORAL USE ONLY) PO SCH ×2 (10:38→14:33)
[2017-11-28] MEDS: MORPHINE SULFATE 2 MG/ML INJ IV PUSH PRN (10:39)
--- NOTE | 2017-11-28 14:32 | HHI.DS ---
Discharge Summary Admission Date Nov 25, 2017 at 18:17 Discharge Date: Nov 28, 2017 Admitting Diagnosis chf exacerbation (1) CHF (congestive heart failure) ICD Code: I50.9 - Heart failure, unspecified Diagnosis: Principal (2) Renal insufficiency ICD Code: N28.9 - Disorder of kidney and ureter, unspecified Diagnosis: Secondary (3) C. difficile colitis ICD Code: A04.72 - Enterocolitis due to Clostridium difficile, not specified as recurrent Diagnosis: Secondary (4) HTN (hypertension) ICD Code: I10 - Essential (primary) hypertension Diagnosis: Principal Status: Chronic (5) PNA (pneumonia) ICD Code: J18.9 - Pneumonia, unspecified organism Diagnosis: Principal (6) DM (diabetes mellitus) ICD Code: E11.9 - Type 2 diabetes mellitus without complications Diagnosis: Secondary Procedures none Brief History - From Admission This is a 66-year-old female with a PMH of HTN, Hyperlipidemia, Iron Deficiency Anemia, CAD, COPD, O2 Dependent, DM, CHF (Echo 08/11/17 w/ EF 60-65%) and C. Diff Colitis who presented to the ER w/ complaints of bilateral lower extremity swelling x3 days. Notes symptoms worse w/ prolonged standing or walking. Moderate severity. Reports associated SOB, especially w/ exertion. Denies fever, chills, cough or chest pain. States she was seen by PCP today and referred to ER for further eval of her SOB. Recent admit 11/09-11/14/17 for c/ o abdominal pain and diarrhea, found to have C Diff Colitis, d/c'd w/ Flagyl 500mg PO tid, reports taking medications as prescribed, colitis improved. On arrival, BP 214/100, HR 95, O2 sat 94% on RA, Afebrile. CBC essentially baseline. Creatinine 1.76, previous 2.15 on 11/14/17. BNP 1181. Troponin 0.03. CXR with increased interstitial markings bilaterally characteristic of pulmonary edema, new right lower lung infiltrate, increasing left lower lung infiltrate. S/p Lasix IV in ER. CBC/BMP: 11/27/17 0720 11/26/17 1458 Significant Findings Laboratory Tests Test 11/25/17 17:00 11/26/17 00:20 11/26/17 14:58 11/27/17 07:20 Red Blood Count 3.14 MIL/MM3 (4.00-5.30) 3.14 MIL/MM3 (4.00-5.30) 2.88 MIL/MM3 (4.00-5.30) Hemoglobin 10.0 GM/DL (11.6-15.3) 9.2 GM/DL (11.6-15.3) 8.4 GM/DL (11.6-15.3) Hematocrit 27.8 % (35.0-46.0) 27.9 % (35.0-46.0) 25.4 % (35.0-46.0) Mean Corpuscular Hemoglobin Concent 36.1 % (32.0-36.0) Monocytes (%) (Auto) 8.6 % (0.0-8.0) 8.7 % (0.0-8.0) 11.7 % (0.0-8.0) Blood Urea Nitrogen 46 MG/DL (7-18) 46 MG/DL (7-18) Creatinine 1.76 MG/DL (0.50-1.00) 1.83 MG/DL (0.50-1.00) Random Glucose 182 MG/DL (74-106) Total Protein 5.7 GM/DL (6.4-8.2) 5.0 GM/DL (6.4-8.2) Albumin 1.8 GM/DL (3.4-5.0) 1.6 GM/DL (3.4-5.0) Alkaline Phosphatase 155 U/L (45-117) 134 U/L (45-117) Chloride Level 110 MEQ/L (98-107) 112 MEQ/L (98-107) Estimat Glomerular Filtration Rate 29 ML/MIN (>89) 28 ML/MIN (>89) B-Type Natriuretic Peptide 1181 PG/ML (0-100) Lipase 45 U/L (73-393) Eosinophils (%) (Auto) 4.2 % (0.0-4.0) Hospital Course Mrs. Maynard is a 66-year-old female. She was admitted secondary to CHF exacerbation. Etiology for her CHF exacerbation appears related to a pneumonia. She is treated for pneumonia here with Levaquin. She is also provided extra diuresis. Treatments have transition patient towards her baseline status. She is able to wean off oxygen and has no hypoxia on oxygen walk testing. Prior to this admission been treated for about 2 weeks for C. difficile which is gradually improving. During this visit she had evidence of uncontrolled hypertension despite taking her baseline treatments. Amlodipine has been started and adjusted to take 10 mg daily and blood pressures are now under control. Today she is medically stable for transition back to home. At home she will continue physical therapy and complete her antibiotic treatment orally. Pt Condition on Discharge: Stable Discharge Disposition: Disch w/ Home Health Serv Discharge Time: <= 30 minutes Discharge Instructions DIET: Follow Instructions for: As Tolerated, No Restrictions Activities you can perform: Regular-No Restrictions Follow up Referrals: PCP Follow-up - 2 Weeks New Medications: Lactobacillus Acidophilus (Lactobacillus Acidophilus) 1 Billion Cell Tab 1 TAB PO TIDAC for Nutritional Supplement, #30 TAB 0 Refills Levofloxacin (Levaquin) 750 Mg Tablet 750 MG PO DAILY for Infection, #4 TAB 0 Refills Amlodipine (Norvasc) 10 Mg Tab 10 MG PO DAILY for Blood Pressure Management, #30 TAB Clonidine (Catapres) 0.1 Mg Tab 0.1 MG PO Q6H PRN for Uncontrolled Blood Pressure, #30 TAB Continued Medications: Acetaminophen (Tylenol) 325 Mg Tab 325 MG PO Q4H PRN for PAIN SCALE 1 TO 5, TAB 0 Refills Aspirin (Aspirin) 81 Mg Chew 81 MG CHEW DAILY, TAB 0 Refills Atorvastatin (Atorvastatin) 40 Mg Tab 40 MG PO HS for Cholesterol Management, #30 TAB 2 Refills Furosemide (Lasix) 40 Mg Tab 40 MG PO DAILY, #30 TAB 0 Refills Insulin Aspart Inj (Novolog Inj) 100 Unit/Ml Inj 1 UNITS SQ ACHS SLIDING SCALE for Blood Sugar Management for 30 Days, INJECTION Sliding Scale As Directed.150-199 1 Unit; 200-249 3 units; 250-299 5 Units; 300-349 7 Units; Insulin Detemir Inj (Levemir Inj) 1,000 unit/ 10 ML Vial 15 UNITS SQ Q12H for Blood Sugar Management for 30 Days, INJECTION Do not mix with any other Insulin. Ipratropium-Albuterol Neb (Duoneb) 0.5-2.5 Mg/3 Ml Neb 1 NEBULE INH Q4HR NEB for SHORTNESS OF BREATH, #120 NEBULE 1 Refill Isosorbide Mononitrate ER (Isosorbide Mononitrate ER) 60 Mg Tab 60 MG PO DAILY for Prevent Chest Pain, #30 TAB 0 Refills Metolazone (Metolazone) 2.5 Mg Tab 2.5 MG PO DAILY, #30 TAB 0 Refills Metoprolol Tartrate (Metoprolol Tartrate) 50 Mg Tab 50 MG PO BID, #60 TAB 0 Refills Metronidazole (Flagyl) 500 Mg Tab 500 MG PO TID for Infection, #90 TAB Prasugrel (Effient) 10 Mg Tab 10 MG PO DAILY for Blood Clot Prevention, #30 TAB 0 Refills Zinc Sulfate (Orazinc) 220 Mg (50 Mg Zinc) Cap 220 MG PO DAILY for Nutritional Supplement Wally Gill MD Nov 28, 2017 14:31
== END 2017-11-28 16:59 | disposition home or self-care (01) ==
LOC: NEPE 15:23 → NEDA 18:17 → NEPFCDU 22:19
PROVIDERS: ADMIT Hospitalist; ATTEND Hospitalist
DX: I50.30 Unspecified diastolic (congestive) heart failure (principal); I11.0 Hypertensive heart disease with heart failure; J44.0 Chronic obstructive pulmonary disease with (acute) lower respiratory infection; J18.9 Pneumonia, unspecified organism; N28.9 Disorder of kidney and ureter, unspecified; I25.10 Atherosclerotic heart disease of native coronary artery without angina pectoris; A04.72 Enterocolitis due to Clostridium difficile, not specified as recurrent; E78.5 Hyperlipidemia, unspecified; I25.2 Old myocardial infarction; E11.9 Type 2 diabetes mellitus without complications; Z79.4 Long term (current) use of insulin; Z99.81 Dependence on supplemental oxygen; Z95.5 Presence of coronary angioplasty implant and graft; Z90.710 Acquired absence of both cervix and uterus
CPT/HCPCS: 71020; 80053; 82550; 82948; 83690; 83735; 83880; 84484; 85025; 85027; 93005; 96365; 96366; 96372; 96374; 96375; 96376; 97163; 99285; G0378; G8987; G8988; J0360; J1815; J1940; J1956; J2270

== ENCOUNTER 2017-12-28 07:46 | Inpatient (IN) | payer MEDICARE, BC ==
[~2017-12-28] VITALS: Ht 162.6 cm; Wt 82.3 kg
[2017-12-28] VITALS (24 sets, daily range): BP systolic 134–193; BP diastolic 62–87; PULSE 45–69; RESP 13–31; TEMP 92.2–93.7; O2SAT 91–99
[~2017-12-28 07:46] MED LIST changes: +AMLO10 PO; +CLON.1 PO; -LACTPOW68 PO; +LACTTAB8 PO; +LEVA750T9 PO; -NIFE60TA8 PO; -OXYGEN NAS.CANULA; -VANC500I3 PO
[2017-12-28] MEDS ORDERED: DEXTROSE 50% IN WATER 50 ML SYRINGE ONE (07:55)
[2017-12-28] MEDS ORDERED: ONDANSETRON HCL 4 MG/2 ML VIAL ONE (07:56)
[2017-12-28] MEDS ORDERED: SODIUM CHLOR 0.9% 1000 ML INJ 1,000 ML IV SCH (08:07)
[2017-12-28] MEDS ORDERED: SODIUM CHLORIDE 0.9% FLUSH 10 ML FLUSH IV FLUSH PRN ×2 (08:15→10:45)
[2017-12-28] MEDS ORDERED: ATROPINE SULFATE 1 MG/ML VIAL ONE (08:17)
[2017-12-28] MEDS ORDERED: ATROPINE SULFATE 1 MG/ML VIAL IV PUSH ONE (08:30)
[2017-12-28] MEDS ORDERED: ONDANSETRON HCL 4 MG/2 ML VIAL IV PUSH ONE (08:30)
[2017-12-28] MEDS ORDERED: METOCLOPRAMIDE HCL 10 MG/2 ML VIAL IV PUSH ONE (08:30)
[2017-12-28 08:48] LABS: INTERNATIONAL NORMALIZED RATIO 0.9 RATIO; PROTHROMBIN TIME - PATIENT 9.5 SEC (9.8-11.6)
--- NOTE | 2017-12-28 08:50 | PD ---
HPI Chief Complaint: Altered Mental Status Time Seen by Provider: 08:07 Travel History International Travel<30 days: No Contact w/Intl Traveler<30days: No Traveled to known affect area: No History of Present Illness HPI 67-year-old female came to the emergency room brought by EMS after she was found to be altered mental status. Patient has history of diabetes. called 911 and when EMS arrived her blood sugar was in the 30s. They gave her a 10 and slowly the sugar started to come up. Patient was a little more awake but started to vomit. She was given Zofran on route but she has continued to vomit upon arrival. Patient has her eyes closed and appears to be in distress but answering questions in monosyllables when asked. Patient was bradycardic upon arrival with heart rate in the 40s to 50s. Blood sugar upon arrival was 75. Core body temperature was 92. Patient had something very similar one month ago when she was admitted. She denies of any chest pain or abdominal pain or headache. There is a right leg wound that is poorly healing and patient goes to podiatry for it. [facility] Past Medical History Narrative Medical List of her past medical, surgical, social and family history is reviewed from the nursing note. Hx Anticoagulant Therapy: Yes (ASPIRIN ) Anemia: Yes (iron deficiency) Arthritis: Yes Asthma: Yes Anxiety: No Depression: No Heart Rhythm Problems: No Cancer: No Cardiovascular Problems: Yes High Cholesterol: Yes Chemotherapy: No Chest Pain: No Congestive Heart Failure: Yes COPD: Yes Cerebrovascular Accident: No Coronary Artery Disease: Yes Diabetes: Yes Patient Takes Glucophage: No Diminished Hearing: No Endocrine: No Gastrointestinal Disorders: Yes (c-diff) GERD: No Genitourinary: No Headaches: No Hepatitis: No Hiatal Hernia: Yes Hypertension: Yes Immune Disorder: No Implanted Vascular Access Dvce: Yes Kidney Stones: No Musculoskeletal: Yes Neurologic: Yes Psychiatric: No Reproductive: Yes Respiratory: Yes Immunizations Current: Yes Migraines: Yes Myocardial Infarction: Yes Radiation Therapy: No Renal Failure: No Seizures: No Sleep Apnea: No Thyroid Disease: No Ulcer: No Tetanus Vaccination: < 5 Years Influenza Vaccination: Yes Menopausal: Yes : 1 Para: 1 Miscarriage: 0 Past Surgical History Abdominal Surgery: Yes (APPENDECTOMY) AICD: No Appendectomy: Yes Body Medical Devices: CARDIAC STENTS X3 Cardiac Surgery: Yes (STENT PLACEMENT) Section: Yes Coronary Stent: Yes (3 stents) Ear Surgery: No Endocrine Surgery: No Eye Surgery: No Genitourinary Surgery: No Gynecologic Surgery: Yes Hysterectomy: Yes Neurologic Surgery: No Oral Surgery: Yes (TONSILS) Pacemaker: No Thoracic Surgery: No Tonsillectomy: Yes (ADENOIDS) Other Surgery: Yes (LEFT WRIST GANGLION CYST) Social History Alcohol Use: No Tobacco Use: No (QUIT 2001) Substance Use: No Allergies-Medications (Allergen,Severity, Reaction): Coded Allergies: propoxyphene (Verified Allergy, Mild, RASH, 11/09/17) Comments List of her allergies reviewed from the nursing note. Reported Meds & Prescriptions Reported Meds & Active Scripts Active Lactobacillus Acidophilus 1 Billion Cell Tab 1 Tab PO TIDAC Levaquin (Levofloxacin) 750 Mg Tablet 750 Mg PO DAILY Norvasc (Amlodipine Besylate) 10 Mg Tab 10 Mg PO DAILY Catapres (Clonidine) 0.1 Mg Tab 0.1 Mg PO Q6H PRN Flagyl (Metronidazole) 500 Mg Tab 500 Mg PO TID Atorvastatin (Atorvastatin Calcium) 40 Mg Tab 40 Mg PO HS Metolazone 2.5 Mg Tab 2.5 Mg PO DAILY Duoneb (Ipratropium-Albuterol Neb) 0.5-2.5 Mg/3 Ml Neb 1 Nebule INH Q4HR NEB Levemir Inj (Insulin Detemir) 1,000 unit/ 10 ML Vial 15 Units SQ Q12H 30 Days Do not mix with any other Insulin. Isosorbide Mononitrate ER (Isosorbide Mononitrate) 60 Mg Tab 60 Mg PO DAILY Novolog Inj (Insulin Aspart) 100 Unit/Ml Inj 1 Units SQ ACHS SLIDING SCALE 30 Days Sliding Scale As Directed.150-199 1 Unit; 200-249 3 units; 250-299 5 Units; 300-349 7 Units; Reported Hydrocodone-Acetaminophen 5-325 mg Tab 1 Tab PO Q6H PRN Lasix (Furosemide) 40 Mg Tab 40 Mg PO DAILY Tylenol (Acetaminophen) 325 Mg Tab 325 Mg PO Q4H PRN Orazinc (Zinc Sulfate) 220 Mg (50 Mg Zinc) Cap 220 Mg PO DAILY Metoprolol Tartrate 50 Mg Tab 50 Mg PO BID Effient (Prasugrel) 10 Mg Tab 10 Mg PO DAILY Aspirin 81 Mg Chew 81 Mg CHEW DAILY Narrative Medication List of her home medications reviewed from the nursing note. Review of Systems ROS Limitations: Altered Mental Status Except as stated in HPI: all other systems reviewed are Neg Gastrointestinal: Positive: Nausea, Vomiting Physical Exam Narrative GENERAL: Eyes closed, moderate distress, answering questions SKIN: Focused skin assessment warm/dry. Pale HEAD: Atraumatic. Normocephalic. EYES: Pupils equal and round. No scleral icterus. No injection or drainage. ENT: No nasal bleeding or discharge. Mucous membranes pink and moist. NECK: Trachea midline. No JVD. CARDIOVASCULAR: Regular rate and rhythm. Bradycardia. no murmur appreciated. RESPIRATORY: No accessory muscle use. Clear to auscultation. Breath sounds equal bilaterally. GASTROINTESTINAL: Abdomen soft, non-tender, nondistended. Hepatic and splenic margins not palpable. MUSCULOSKELETAL: No obvious deformities. No clubbing. No cyanosis. No edema. NEUROLOGICAL: Eyes closed but answers questions. No obvious cranial nerve deficits. Motor grossly within normal limits. Slurred speech. PSYCHIATRIC: Appropriate mood and affect; insight and judgment normal. Data Data Last Documented VS Vital Signs Date Time Temp Pulse Resp B/P (MAP) Pulse Ox O2 Delivery O2 Flow Rate FiO2 12/28/17 09:39 50 14 149/70 (96) 98 Nasal Cannula 2.00 12/28/17 08:06 92.2 Orders Orders Dextrose 50% In Toan (Syr) Inj (D50w (Syr (12/28/17 07:55) Ondansetron Inj (Zofran Inj) (12/28/17 07:56) Electrocardiogram (12/28/17 08:07) Ammonia (12/28/17 08:07) Basic Metabolic Panel (Bmp) (12/28/17 08:07) Comprehensive Metabolic Panel (12/28/17 08:07) Creatine Kinase (Cpk) (12/28/17 08:07) Prothrombin Time / Inr (Pt) (12/28/17 08:07) Troponin I (12/28/17 08:07) Thyroid Stimulating Hormone (12/28/17 08:07) Urinalysis - C+S If Indicated (12/28/17 08:07) Lactic Acid Sepsis Protocol (12/28/17 08:07) Blood Culture (12/28/17 08:07) Ct Brain W/O Iv Contrast(Rout) (12/28/17 08:07) Blood Glucose (12/28/17 08:07) Ecg Monitoring (12/28/17 08:07) Iv Access Insert/Monitor (12/28/17 08:07) Oximetry (12/28/17 08:07) Sodium Chloride 0.9% Flush (Ns Flush) (12/28/17 08:15) Sodium Chlor 0.9% 1000 Ml Inj (Ns 1000 M (12/28/17 08:07) Atropine Inj (Atropine Inj) (12/28/17 08:17) Atropine Inj (Atropine Inj) (12/28/17 08:30) Metoclopramide Inj (Reglan Inj) (12/28/17 08:30) Ondansetron Inj (Zofran Inj) (12/28/17 08:30) Type And Screen (12/28/17 08:20) Ct Abd/Pel W/O Iv Contrast (12/28/17 ) Urinary Catheter Insert/Apply (12/28/17 08:39) Urine Culture (12/28/17 08:25) Complete Blood Count With Diff (12/28/17 09:24) Chest, Single Ap (12/28/17 ) Levothyroxine Inj (Synthroid Inj) (12/28/17 09:45) Ceftriaxone Inj (Rocephin Inj) (12/28/17 10:15) Dextrose 50% In Toan (Vial) Inj (D50w (Vi (12/28/17 10:15) Dext 5%-Nacl 0.9% 500 Ml Inj (D5w-Ns 500 (12/28/17 10:15) ^ Other Nursing Orders (12/28/17 10:29) Admit Order (Ed Use Only) (12/28/17 10:33) Labs Laboratory Tests Test 12/28/17 08:15 12/28/17 08:25 12/28/17 09:30 White Blood Count 6.2 TH/MM3 Red Blood Count 3.85 MIL/MM3 Hemoglobin 11.3 GM/DL Hematocrit 33.6 % Mean Corpuscular Volume 87.3 FL Mean Corpuscular Hemoglobin 29.4 PG Mean Corpuscular Hemoglobin Concent 33.7 % Red Cell Distribution Width 16.2 % Platelet Count 314 TH/MM3 Mean Platelet Volume 7.5 FL Neutrophils (%) (Auto) 62.3 % Lymphocytes (%) (Auto) 28.5 % Monocytes (%) (Auto) 5.4 % Eosinophils (%) (Auto) 3.2 % Basophils (%) (Auto) 0.6 % Neutrophils # (Auto) 3.9 TH/MM3 Lymphocytes # (Auto) 1.8 TH/MM3 Monocytes # (Auto) 0.3 TH/MM3 Eosinophils # (Auto) 0.2 TH/MM3 Basophils # (Auto) 0.0 TH/MM3 CBC Comment DIFF FINAL Differential Comment Prothrombin Time 9.5 SEC Prothromb Time International Ratio 0.9 RATIO Blood Urea Nitrogen 35 MG/DL Creatinine 1.65 MG/DL Random Glucose 69 MG/DL Total Protein 5.9 GM/DL Albumin 1.6 GM/DL Calcium Level 8.9 MG/DL Alkaline Phosphatase 146 U/L Aspartate Amino Transf (AST/SGOT) 24 U/L Alanine Aminotransferase (ALT/SGPT) 10 U/L Total Bilirubin 0.1 MG/DL Sodium Level 140 MEQ/L Potassium Level 4.5 MEQ/L Chloride Level 109 MEQ/L Carbon Dioxide Level 23.3 MEQ/L Anion Gap 8 MEQ/L Estimat Glomerular Filtration Rate 31 ML/MIN Total Creatine Kinase 41 U/L Troponin I LESS THAN 0.02 NG/ML B-Type Natriuretic Peptide 1044 PG/ML Thyroid Stimulating Hormone 3rd Gen 10.700 uIU/ML Urine Color YELLOW Urine Turbidity HAZY Urine pH 6.0 Urine Specific [place] 1.020 Urine Protein 300 mg/dL Urine Glucose (UA) 150 mg/dL Urine Ketones NEG mg/dL Urine Occult Blood TRACE Urine Nitrite NEG Urine Bilirubin NEG Urine Urobilinogen LESS THAN 2.0 MG/DL Urine Leukocyte Esterase NEG Urine RBC 2 /hpf Urine WBC 1 /hpf Urine Squamous Epithelial Cells 1 /hpf Urine Amorphous Sediment FEW Urine Bacteria FEW /hpf Urine Hyaline Casts 3 /lpf Urine Granular Casts 6 /lpf Urine Mucus FEW /lpf Microscopic Urinalysis Comment CATH-CULTURE IND Urine Opiates Screen POS Urine Barbiturates Screen NEG Urine Amphetamines Screen NEG Urine Benzodiazepines Screen NEG Urine Cocaine Screen NEG Urine Cannabinoids Screen POS Lactic Acid Level 1.2 mmol/L Ammonia 10 MCMOL/L MDM Medical Decision Making Medical Screen Exam Complete: Yes Emergency Medical Condition: Yes Medical Record Reviewed: Yes Interpretation(s) Twelve-lead EKG was reviewed by me. Normal sinus rhythm, left axis deviation, bradycardia, questionable old anterior NH that's unchanged from 12 28,017. Heart rate of 50 bpm. Differential Diagnosis Sepsis, ACS, intracranial bleed Narrative Course 9:55 AM patient was continued on the D10 W from EMS. A repeat blood sugar and half an hour was 104. After which a D5 drip was hung. Patient initially was given another dose of Zofran but continued to vomit at which point I ordered Reglan. However during vomiting patient probably had a vagal episode where heart rate dipped down to the 30s. Gave her 0.5 mg of IV atropine and heart rate came up to the 50s. Blood test results of back. Patient has some renal insufficiency and extremely high TSH. Based on this I have ordered for IV Synthroid 200 g. Awaiting for the lactic acid and ammonia to come back. Patient is on a bear hugger. She does have a Lim catheter in. UA suggestive of UTI. However based on the lactic acid I'll make the choice of antibiotic. She will require admission. Her came in meanwhile and I updated him on her test results. 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 Her CAT scan shows bilateral lower effusion with ascites. Her said that last time they have to tap her lungs to remove the fluid. Critical Care Narrative Aggregate critical care time was 60 minutes. Time to perform other separately billable procedures was not included in the critical care time. My time did not include minutes spent treating any other patients simultaneously or on activities that did not directly contribute to the patient's treatment. The services I provided to this patient were to treat and/or prevent clinically significant deterioration that could result in: Altered mental status, hypoglycemia, sepsis, hypothyroidism I provided critical care services requiring my management, as noted below: Chart data review, documentation time, medication orders and management, vital sign assessments/reviewing monitor data, ordering and reviewing lab tests, ordering and interpreting/reviewing x-rays and diagnostic studies, care of the patient and discussion of the patient with the admitting physicians. Procedures EKG Prior to Arrival: Yes Diagnosis Primary Impression: Altered mental status Qualified Codes: R40.0 - Somnolence Additional Impressions: Hypoglycemia Hypothyroidism Qualified Codes: E03.9 - Hypothyroidism, unspecified Hypothermia Qualified Codes: T68.XXXA - Hypothermia, initial encounter Pleural effusion Ascites Qualified Codes: R18.8 - Other ascites Vomiting Qualified Codes: R11.2 - Nausea with vomiting, unspecified Myxedema coma UTI (urinary tract infection) Qualified Codes: N39.0 - Urinary tract infection, site not specified Bradycardia Admitting Information Admitting Physician Requests: it Terry Anaya MD Dec 28, 2017 08:50
[2017-12-28 08:51] LABS: ALBUMIN 1.6 GM/DL (3.4-5.0); ALT (GPT) 10 U/L (10-53); AST (GOT) 24 U/L (15-37); BICARBONATE 23.3 MEQ/L (21.0-32.0); BLOOD UREA NITROGEN 35 MG/DL (7-18); CALCIUM 8.9 MG/DL (8.5-10.1); CHLORIDE 109 MEQ/L (98-107); CREATININE 1.65 MG/DL (0.50-1.00); GLOMERULAR FILTRATION RATE 31 ML/MIN (>89); GLUCOSE,RANDOM 69 MG/DL (74-106); SODIUM (NA) 140 MEQ/L (136-145)
[2017-12-28 08:56] LABS: AMORPHOUS SEDIMENT, URINE FEW; BACTERIA, URINE FEW /hpf; BILIRUBIN, URINE NEG (NEG); BLOOD, URINE TRACE (NEG); GLUCOSE,URINE 150 mg/dL (NEG); HYALINE CAST, URINE 3 /lpf (RARE); KETONE, URINE NEG (NEG); MUCUS URINE FEW /lpf (OCC); NITRITE,URINE NEG (NEG); SQUAMOUS EPITHELIAL CELL URINE 1 /hpf (0-5); URINE COLOR YELLOW (YELLW/STRAW); URINE LEUKOCYTE ESTERASE NEG (NEG)
[2017-12-28 09:01] LABS: ALKALINE PHOSPHATASE 146 U/L (45-117); TOTAL BILIRUBIN ADULT 0.1 MG/DL (0.2-1.0); TOTAL PROTEIN 5.9 GM/DL (6.4-8.2); TROPONIN I LESS THAN 0.02 NG/ML (0.02-0.05)
--- NOTE | 2017-12-28 09:12 | RADRPT ---
EXAM DATE/TIME: 12/28/2017 09:04 [facility] COMPARISON: CT BRAIN W/O CONTRAST, July 15, 2017, 16:59. INDICATIONS : Confusion, Low Blood sugar, vomiting. RADIATION DOSE: 59.56 CTDIvol (mGy) ; Tabletop CT Head MEDICAL HISTORY : Cardiovascular disease. Hypertension. Chronic obstructive pulmonary disease.Diabetes, renal disease. SURGICAL HISTORY : Tonsillectomy. Back surgery ENCOUNTER: Initial ACUITY: 1 day PAIN SCALE: 0/10 LOCATION: cranial TECHNIQUE: Multiple contiguous axial images were obtained of the head. Using automated exposure control and adj ustment of the mA and/or kV according to patient size, radiation dose was kept as low as reasonably a chievable to obtain optimal diagnostic quality images. DICOM format image data is available electro nically for review and comparison. FINDINGS: CEREBRUM: The ventricles are normal for age. No evidence of midline shift, mass lesion, hemorrhage or acute in farction. No extra-axial fluid collections are seen. POSTERIOR FOSSA: The cerebellum and brainstem are intact. The 4th ventricle is midline. The cerebellopontine angle i s unremarkable. EXTRACRANIAL: The visualized portion of the orbits is intact. SKULL: The calvaria is intact. No evidence of skull fracture. CONCLUSION: No acute disease. No significant change has occurred. Héctor Carmona MD on December 28, 2017 at 9:09 Board Certified Radiologist. This report was verified electronically.
--- NOTE | 2017-12-28 09:27 | RADRPT ---
EXAM DATE/TIME: 12/28/2017 09:07 [facility] COMPARISON: CT ABDOMEN & PELVIS W/O CONTRAST, November 09, 2017, 17:50. INDICATIONS : Confusion, Low Blood sugar, vomiting. ORAL CONTRAST: No oral contrast ingested. RADIATION DOSE: 15.36 CTDIvol (mGy) MEDICAL HISTORY : Cardiovascular disease. Hypertension. Chronic obstructive pulmonary disease.Diabetes, renal disease. SURGICAL HISTORY : Tonsillectomy. Back surgery ENCOUNTER: Initial ACUITY: 1 day PAIN SCALE: 0/10 LOCATION: diffuse abdominal pain. TECHNIQUE: Volumetric scanning of the abdomen and pelvis was performed. Using automated exposure control and ad justment of the mA and/or kV according to patient size, radiation dose was kept as low as reasonably achievable to obtain optimal diagnostic quality images. DICOM format image data is available electro nically for review and comparison. FINDINGS: Again noted are large bilateral basilar posterior layering pleural effusions. Compressive atelectasis is noted in lung bases more prominent in the left than the right. Patient demonstrates anasarca with ascites in the abdomen an d pelvis . Lim catheter is in place in the urinary bladder. There are extensive vascular calcificat ions aorta and branches as well as renal arteries and iliac as well as femoral arteries. There is a F oley catheter in place in the urinary bladder. Uncomplicated diverticuli are appreciated of the colon primarily sigmoid region with bowel wall thickening the colon stable to diminished. CONCLUSION: Stable abdomen. No evidence of free air and no evidence of obstruction. Large bilateral pleural effusions with ascites and an asarca. Diverticuli uncomplicated of the colon with diminished mur al thickening of the colon suggesting improving colitis. Lim catheter in place in the urinary bladder. Héctor Carmona MD on December 28, 2017 at 9:19 Board Certified Radiologist. This report was verified electronically.
[2017-12-28 09:38] LABS: AUTOMATED NEUTROPHIL # 3.9 TH/MM3 (1.8-7.7); BASOPHIL % 0.6 % (0.0-2.0); EOSINOPHIL # 0.2 TH/MM3 (0-0.4); EOSINOPHIL % 3.2 % (0.0-4.0); HEMATOCRIT 33.6 % (35.0-46.0); HEMOGLOBIN 11.3 GM/DL (11.6-15.3); LYMPH % 28.5 % (9.0-44.0); LYMPHOCYTE # 1.8 TH/MM3 (1.0-4.8); MEAN CELL VOLUME 87.3 FL (80.0-100.0); MEAN CORPUSCULAR HEMOGLOBIN 29.4 PG (27.0-34.0); MEAN CORPUSCULAR HGB CONC 33.7 % (32.0-36.0); MEAN PLATELET VOLUME 7.5 FL (7.0-11.0); MONO % 5.4 % (0.0-8.0); MONOCYTE # 0.3 TH/MM3 (0-0.9); NEUT % 62.3 % (16.0-70.0); PLATELET COUNT 314 TH/MM3 (150-450); RED BLOOD COUNT 3.85 MIL/MM3 (4.00-5.30); RED CELL DISTRIBUTION WIDTH 16.2 % (11.6-17.2); WHITE BLOOD COUNT 6.2 TH/MM3 (4.0-11.0)
[2017-12-28] MEDS ORDERED: LEVOTHYROXINE SODIUM 100 MCG VIAL IV PUSH ONE (09:45)
--- NOTE | 2017-12-28 09:52 | RADRPT ---
EXAM DATE/TIME: 12/28/2017 09:34 [facility] COMPARISON: CT ABDOMEN & PELVIS W/O CONTRAST, December 28, 2017, 9:07. CHEST PA & LAT, November 25, 2017, 15:47. INDICATIONS : Short of breath with pressure and congestion. MEDICAL HISTORY : Myocardial infarction. Diabetes mellitus type II. C-Diff. Acute kidney failure. Pleural effusion . Cardiomegaly SURGICAL HISTORY : Coronary artery stent. ENCOUNTER: Initial ACUITY: 1 day PAIN SCORE: 6/10 LOCATION: Bilateral chest FINDINGS: There are persistent bibasilar opacities however on the right this is markedly improved the residual on the left primarily represents effusion unchanged. CONCLUSION: By basilar opacities primarily representing effusion stable on the left diminished radiographically o n the right although very prominent on CT scan this same day Héctor Carmona MD on December 28, 2017 at 9:48 Board Certified Radiologist. This report was verified electronically.
[2017-12-28] MEDS ORDERED: DEXTROSE 50% IN WATER 50 ML VIAL(D50) IV PUSH ONE (10:15)
[2017-12-28] MEDS ORDERED: cefTRIAXone INJ 1,000 MG in SODIUM CHLORIDE 0.9% INJ 100 ML IV ONE (10:15)
[2017-12-28] MEDS ORDERED: DEXT 5%-NACL 0.9% 500 ML INJ 500 ML IV ONE (10:15)
[2017-12-28] MEDS ORDERED: LACTULOSE SYRUP 20 GM/30 ML CUP PO PRN (10:45)
[2017-12-28] MEDS ORDERED: ONDANSETRON HCL 4 MG/2 ML VIAL IVP PRN (10:45)
[2017-12-28] MEDS ORDERED: SENNOSIDES 8.6 MG TAB PO PRN (10:45)
[2017-12-28] MEDS ORDERED: MAGNESIUM HYDROXIDE SUSP 30 ML CUP PO PRN (10:45)
[2017-12-28] MEDS ORDERED: BISACODYL 10 MG SUPP RECTAL PRN (10:45)
[2017-12-28] MEDS ORDERED: NALOXONE HCL 0.4 MG/ML AMP IV PUSH PRN (10:45)
[2017-12-28] MEDS ORDERED: GLUCAGON 1 MG/ML VIAL IM PRN (10:45)
[2017-12-28] MEDS ORDERED: HYDR-3516 PO (11:09)
[2017-12-28] MEDS: INSULIN ASPART SUPPLEMENTAL SCALE SQ SCH ×3 (12:00→20:46)
[2017-12-28] MEDS ORDERED: VANCOMYCIN INJ 1,000 MG in SODIUM CHLOR 0.9% 250 ML INJ 250 ML IV ONE (14:30)
[2017-12-28] MEDS ORDERED: Vancomycin Consult Pharmacy 1 EA OTHER SCH (14:30)
[2017-12-28 14:36] LABS: FREE T4 1.68 NG/DL (0.76-1.46)
[2017-12-28] MEDS ORDERED: HYDROCORTISONE SOD SUCCINATE 100 MG VIAL IV PUSH ONE (15:00)
[2017-12-28] MEDS ORDERED: FUROSEMIDE 20 MG/2 ML VIAL IV PUSH ONE (15:00)
[2017-12-28] MEDS: PIPERACIL-TAZO 3.375 GM PREMIX 50 ML IV SCH ×2 (15:12→21:13)
[2017-12-28] MEDS: RESP: ALBUTEROL 2.5 MG/IPRATROPIUM 0.5 MG NEB (SCH) INH ×3 (15:22→23:03)
[2017-12-28 15:34] LABS: HEMATOCRIT 28.6 % (35.0-46.0); HEMOGLOBIN 10.1 GM/DL (11.6-15.3); MEAN CELL VOLUME 87.3 FL (80.0-100.0); MEAN CORPUSCULAR HEMOGLOBIN 30.9 PG (27.0-34.0); MEAN CORPUSCULAR HGB CONC 35.4 % (32.0-36.0); MEAN PLATELET VOLUME 7.3 FL (7.0-11.0); PLATELET COUNT 274 TH/MM3 (150-450); RED BLOOD COUNT 3.28 MIL/MM3 (4.00-5.30); WHITE BLOOD COUNT 5.2 TH/MM3 (4.0-11.0)
[2017-12-28] MEDS ORDERED: VANCOMYCIN INJ 2,000 MG in SODIUM CHLORID 0.9% 500 ML INJ 500 ML IV SCH (16:00)
[2017-12-28 16:28] LABS: CORTISOL 34.7 MCG/DL
--- NOTE | 2017-12-28 16:40 | MB ---
cc: REX ESCOBAR MD DATE OF CONSULTATION 12/28/17 HISTORY OF PRESENT ILLNESS Ms. Maynard is a 67 white female known to our practice with a history of diabetes mellitus, myocardial infarction, coronary artery disease, congestive heart failure, COPD, diabetes mellitus, coronary stenting. She presented with altered mental status. Her blood sugar was in the 30s. She also had nausea and vomiting. She has not had any chest pain or shortness of breath. She lives with her and daughter and has not been taking care of herself. She has a right leg wound which is not healing well. PAST MEDICAL HISTORY 1. Itk-EU-wltvehtcp myocardial function 2. Diabetic ketoacidosis 3. Severe anemia 4. COPD 5. Cardiac catheterization with integrated stent to LAD and proximal RCA 6. Hysterectomy, 7. C5 laminectomy 8. Ganglion cyst 9. . 10. Trigger finger surgery, 11. Knee surgery 12. Ankle surgery, 13. Multiple caths, last on 07/20/2017, with patent stent to LAD and a re-stenting of in-stent restenosis of the first diagonal artery. MEDICATIONS At home, 1. Aspirin. 2. Pravastatin 3. Effient 4. Isosorbide. 5. Metoprolol. 7. Nitroglycerin. 8. Levemir 9. Novolog 10. Iron. 11. Vitamin D. 12. Folic acid, 13. Zinc. 14. Furosemide. 15. Amlodipine. 16. Lisinopril. SOCIAL HISTORY The patient does not smoke but used to smoke in the past. She does not drink alcohol. FAMILY HISTORY Negative for heart disease. REVIEW OF SYSTEMS Otherwise negative. PHYSICAL EXAMINATION VITAL SIGNS: Blood pressure 159/76, pulse 50 and regular. HEENT: Negative. 2+ carotid upstrokes. No bruits. LUNGS: Decreased breath sounds bilateral bases, clear. ABDOMEN: Soft, obese, no bruits. EXTREMITIES: With mild edema. There is non-healing right lower extremity wound and diminished pulses. NEUROLOGIC: Grossly nonfocal. CARDIOLOGY STUDIES EKG was reviewed and showed sinus bradycardia, delayed R-wave progression in pericardial leads, low voltage. LABORATORY DATA Hemoglobin 10.1, potassium 4.5, creatinine 1.65. Troponin less than 0.02. BNP 1044. TSH 10.7. IMAGING STUDIES Chest x-ray showed bilateral pleural effusions. DIAGNOSES 1. Altered mental status. 2. Hypoglycemia. 3. Pleural effusion 4. Congestive heart failure, diastolic dysfunction. 5. Coronary artery disease, history of myocardial function and coronary stenting. 6. Hypertension 7. Chronic obstructive pulmonary disease 8. Diabetes mellitus, 9. Dyslipidemia 10. Anemia. 11. Chronic kidney disease DISPOSITION Ms. Maynard will be monitored in the ICU. We will continue IV diuresis, closely monitoring her renal function. She had mild bradycardia on admission which is now improving. I will follow her for cardiology during her hospitalization. I recommend social work evaluation for placement since she is obviously not able to take care of herself. MD MAGGIE Angel/ /3:45 PM /4:29 PM MTDD
[2017-12-28] MEDS: VANCOMYCIN 500 MG VIAL (FOR ORAL USE ONLY) PO SCH ×2 (17:34→21:13)
[2017-12-28] MEDS: FUROSEMIDE 40 MG/4 ML VIAL IV PUSH SCH (17:53)
[2017-12-28] MEDS ORDERED: CHLOROTHIAZIDE SOD 500 MG VIAL IV ONE (18:45)
--- NOTE | 2017-12-28 18:52 | HHI.HP ---
HPI Service [facility] Primary Care Physician No Primary Care Physician Admission Diagnosis myxedema coma, hyperglycemia, AMS, bradycardia, hypothermia Diagnoses: Travel History International Travel<30 Days: No Contact w/Intl Traveler <30 Da: No Traveled to Known Affected Are: No History of Present Illness Patient found to have somnolence this morning. Blood sugar was in the 30s. Patient had nausea vomiting on the way to the hospital, however nausea has resolved at this time. Blood sugars Improved after D50 supplementation. Patient seen on arrival to the floor. She is somnolent, but awakes for exam and is oriented 3. She denies any recent changes in medications. Return denies any recent infection. Denies any cough, chest pain, shortness of breath. She does report loose bowel movements which have been off for the past month. She does have a history of C. difficile treated on previous admission. Review of Systems Performed and negative except for history of present illness and past medical history. Past Family Social History Past Medical History Hypertension Hyperlipidemia Iron deficiency anemia CAD COPD Diabetes mellitus CHF C. difficile colitis Past Surgical History Appendectomy Cardiac stenting Hysterectomy Tonsillectomy Left wrist ganglion cysts Reported Medications Reported Meds & Active Scripts Active Lactobacillus Acidophilus 1 Billion Cell Tab 1 Tab PO TIDAC Levaquin (Levofloxacin) 750 Mg Tablet 750 Mg PO DAILY Norvasc (Amlodipine Besylate) 10 Mg Tab 10 Mg PO DAILY Catapres (Clonidine) 0.1 Mg Tab 0.1 Mg PO Q6H PRN Flagyl (Metronidazole) 500 Mg Tab 500 Mg PO TID Atorvastatin (Atorvastatin Calcium) 40 Mg Tab 40 Mg PO HS Metolazone 2.5 Mg Tab 2.5 Mg PO DAILY Duoneb (Ipratropium-Albuterol Neb) 0.5-2.5 Mg/3 Ml Neb 1 Nebule INH Q4HR NEB Levemir Inj (Insulin Detemir) 1,000 unit/ 10 ML Vial 15 Units SQ Q12H 30 Days Do not mix with any other Insulin. Isosorbide Mononitrate ER (Isosorbide Mononitrate) 60 Mg Tab 60 Mg PO DAILY Novolog Inj (Insulin Aspart) 100 Unit/Ml Inj 1 Units SQ ACHS SLIDING SCALE 30 Days Sliding Scale As Directed.150-199 1 Unit; 200-249 3 units; 250-299 5 Units; 300-349 7 Units; Reported Lasix (Furosemide) 40 Mg Tab 40 Mg PO DAILY Tylenol (Acetaminophen) 325 Mg Tab 325 Mg PO Q4H PRN Orazinc (Zinc Sulfate) 220 Mg (50 Mg Zinc) Cap 220 Mg PO DAILY Metoprolol Tartrate 50 Mg Tab 50 Mg PO BID Effient (Prasugrel) 10 Mg Tab 10 Mg PO DAILY Aspirin 81 Mg Chew 81 Mg CHEW DAILY Allergies: Coded Allergies: propoxyphene (Verified Allergy, Mild, RASH, 11/09/17) Family History Reviewed with the patient and found to be currently noncontributory. Social History Nonsmoker. Nondrinker. Denies illicit drugs. Physical Exam Vital Signs Vital Signs Date Time Temp Pulse Resp B/P (MAP) Pulse Ox O2 Delivery O2 Flow Rate FiO2 12/28/17 18:00 59 12/28/17 16:20 55 12/28/17 16:20 97.7 55 18 169/73 (105) 98 12/28/17 16:00 53 12/28/17 16:00 97.5 53 31 160/72 (101) 98 12/28/17 14:00 52 12/28/17 13:45 49 12/28/17 13:40 50 12/28/17 13:30 48 12/28/17 13:21 48 12/28/17 13:15 48 12/28/17 13:01 95.5 50 13 159/76 (103) 99 12/28/17 13:01 50 12/28/17 13:00 50 12/28/17 13:00 95.5 50 13 99 12/28/17 12:45 50 12/28/17 12:30 49 12/28/17 12:18 95.2 50 14 139/62 (87) 98 12/28/17 12:18 95.2 50 14 139/62 (87) 98 12/28/17 12:18 50 12/28/17 12:07 12/28/17 11:29 45 16 134/74 (94) 98 Nasal Cannula 2.00 12/28/17 10:40 93.7 12/28/17 09:39 50 14 149/70 (96) 98 Nasal Cannula 2.00 12/28/17 08:36 49 20 Nasal Cannula 2.00 12/28/17 08:23 51 16 193/87 (122) 97 Nasal Cannula 2.00 12/28/17 08:10 96 Nasal Cannula 2.00 12/28/17 08:06 92.2 46 16 187/86 (119) 91 Physical Exam GENERAL: This is a well-nourished, well-developed patient, somnolent, wakes up for exam. She is oriented 3. SKIN: No rashes, ecchymoses or lesions. Cool and dry. HEAD: Atraumatic. Normocephalic. No temporal or scalp tenderness. EYES: Pupils equal round and reactive. Extraocular motions intact. No scleral icterus. No injection or drainage. ENT: Nose without bleeding, purulent drainage or septal hematoma. Throat without erythema, tonsillar hypertrophy or exudate. Uvula midline. Airway patent. NECK: Trachea midline. JVD difficult to ascertain secondary to body habitus. CARDIOVASCULAR: Regular rate and rhythm without murmurs, gallops, or rubs. RESPIRATORY: Clear to auscultation. Breath sounds equal bilaterally. No wheezes , rales, or rhonchi. GASTROINTESTINAL: Abdomen soft, non-tender, nondistended. No hepato-splenomegaly , or palpable masses. No guarding. MUSCULOSKELETAL: Extremities without clubbing, cyanosis. No joint tenderness, effusion. No calf tenderness. Negative Homans sign bilaterally. 2+ bilateral lower extremity edema. Roughly 10 x 5 cm wound over the right del cid. No surrounding erythema. No pus. NEUROLOGICAL: Awake and alert. Cranial nerves II through XII intact. Motor and sensory grossly within normal limits. Five out of 5 muscle strength in all muscle groups. Normal speech. Laboratory Laboratory Tests Test 12/28/17 08:15 12/28/17 08:25 12/28/17 09:30 12/28/17 10:44 White Blood Count 6.2 Red Blood Count 3.85 Hemoglobin 11.3 Hematocrit 33.6 Mean Corpuscular Volume 87.3 Mean Corpuscular Hemoglobin 29.4 Mean Corpuscular Hemoglobin Concent 33.7 Red Cell Distribution Width 16.2 Platelet Count 314 Mean Platelet Volume 7.5 Neutrophils (%) (Auto) 62.3 Lymphocytes (%) (Auto) 28.5 Monocytes (%) (Auto) 5.4 Eosinophils (%) (Auto) 3.2 Basophils (%) (Auto) 0.6 Neutrophils # (Auto) 3.9 Lymphocytes # (Auto) 1.8 Monocytes # (Auto) 0.3 Eosinophils # (Auto) 0.2 Basophils # (Auto) 0.0 CBC Comment DIFF FINAL Differential Comment Prothrombin Time 9.5 Prothromb Time International Ratio 0.9 Blood Urea Nitrogen 35 Creatinine 1.65 Random Glucose 69 Total Protein 5.9 Albumin 1.6 Calcium Level 8.9 Alkaline Phosphatase 146 Aspartate Amino Transf (AST/SGOT) 24 Alanine Aminotransferase (ALT/SGPT) 10 Total Bilirubin 0.1 Sodium Level 140 Potassium Level 4.5 Chloride Level 109 Carbon Dioxide Level 23.3 Anion Gap 8 Estimat Glomerular Filtration Rate 31 Total Creatine Kinase 41 Troponin I LESS THAN 0.02 B-Type Natriuretic Peptide 1044 Thyroid Stimulating Hormone 3rd Gen 10.700 Urine Color YELLOW Urine Turbidity HAZY Urine pH 6.0 Urine Specific [place] 1.020 Urine Protein 300 Urine Glucose (UA) 150 Urine Ketones NEG Urine Occult Blood TRACE Urine Nitrite NEG Urine Bilirubin NEG Urine Urobilinogen LESS THAN 2.0 Urine Leukocyte Esterase NEG Urine RBC 2 Urine WBC 1 Urine Squamous Epithelial Cells 1 Urine Amorphous Sediment FEW Urine Bacteria FEW Urine Hyaline Casts 3 Urine Granular Casts 6 Urine Mucus FEW Microscopic Urinalysis Comment CATH-CULTURE IND Urine Opiates Screen POS Urine Barbiturates Screen NEG Urine Amphetamines Screen NEG Urine Benzodiazepines Screen NEG Urine Cocaine Screen NEG Urine Cannabinoids Screen POS Lactic Acid Level 1.2 Ammonia 10 Blood Gas Puncture Site RT RADIAL Blood Gas Patient Temperature 92.2 Blood Gas HCO3 23 Blood Gas Base Excess -2.2 Blood Gas Oxygen Saturation 95 Arterial Blood pH 7.39 Arterial Blood Partial Pressure CO2 36 Arterial Blood Partial Pressure O2 68 Arterial Blood Oxygen Content 12.9 Arterial Blood Carboxyhemoglobin 1.5 Arterial Blood Methemoglobin 0.4 Blood Gas Hemoglobin 9.6 Oxygen Delivery Device NASAL CANNULA Blood Gas Liter Flow 2 Test 12/28/17 14:07 12/28/17 15:21 Random Glucose 76 C-Reactive Protein 0.38 Free Thyroxine 1.68 Total Triiodothyronine 99 Random Cortisol 34.7 White Blood Count 5.2 Red Blood Count 3.28 Hemoglobin 10.1 Hematocrit 28.6 Mean Corpuscular Volume 87.3 Mean Corpuscular Hemoglobin 30.9 Mean Corpuscular Hemoglobin Concent 35.4 Red Cell Distribution Width 16.0 Platelet Count 274 Mean Platelet Volume 7.3 Erythrocyte Sedimentation Rate 47 Date/Time Source Procedure Growth Status 12/28/17 09:30 Blood Peripheral Aerobic Blood Culture Pending Received 12/28/17 09:30 Blood Peripheral Anaerobic Blood Culture Pending Received 12/28/17 08:25 Urine Catheterized Urine Urine Culture Pending Received Result Diagram: 12/28/17 1521 12/28/17 1407 Imaging Last Impressions Head CT 12/28/17 0807 Signed Impressions: Service Date/Time: Thursday, December 28, 2017 09:04 - CONCLUSION: No acute disease. No significant change has occurred. Héctor Carmona MD Chest X-Ray 12/28/17 0000 Signed Impressions: Service Date/Time: Thursday, December 28, 2017 09:34 - CONCLUSION: By basilar opacities primarily representing effusion stable on the left diminished radiographically on the right although very prominent on CT scan this same day Héctor Carmona MD Abdomen/Pelvis CT 12/28/17 0000 Signed Impressions: Service Date/Time: Thursday, December 28, 2017 09:07 - CONCLUSION: Stable abdomen. No evidence of free air and no evidence of obstruction. Large bilateral pleural effusions with ascites and anasarca. Diverticuli uncomplicated of the colon with diminished mural thickening of the colon suggesting improving colitis. Lim catheter in place in the urinary bladder. MD Kate Morales VTE Risk Assessment Caprini VTE Risk Assessment: Mod/High Risk (score >= 2) Caprini Risk Assessment Model Point Value = 1 Point Value = 2 Point Value = 3 Point Value = 5 Age 41-60 Minor surgery BMI > 25 kg/m2 Swollen legs Varicose veins or History of unexplained or recurrent spontaneous Oral contraceptives or hormone replacement Sepsis (< 1 month) Serious lung disease, including pneumonia (< 1 month) Abnormal pulmonary function Acute myocardial infarction Congestive heart failure (< 1 month) History of inflammatory bowel disease Medical patient at bed rest Age 61-74 Arthroscopic surgery Major open surgery (> 45 min) Laparoscopic surgery (> 45 min) Malignancy Confined to bed (> 72 hours) Immobilizing plaster cast Central venous access Age >= 75 History of VTE Family history of VTE Factor V Leiden Prothrombin [id number] Lupus anticoagulant Anticardiolipin antibodies Elevated serum homocysteine Heparin-induced thrombocytopenia Other congenital or acquired thrombophilia Stroke (< 1 month) Elective arthroplasty Hip, pelvis, or leg fracture Acute spinal cord injury (< 1 month) Prophylaxis Regimen Total Risk Factor Score Risk Level Prophylaxis Regimen 0-1 Low Early ambulation 2 Moderate Order ONE of the following: *Sequential Compression Device (SCD) *Heparin 5000 units SQ BID 3-4 Higher Order ONE of the following medications: *Heparin 5000 units SQ TID *Enoxaparin/Lovenox 40 mg SQ daily (WT < 150 kg, CrCl > 30 mL/min) *Enoxaparin/Lovenox 30 mg SQ daily (WT < 150 kg, CrCl > 10-29 mL/min) *Enoxaparin/Lovenox 30 mg SQ BID (WT < 150 kg, CrCl > 30 mL/min) AND/OR *Sequential Compression Device (SCD) 5 or more Highest Order ONE of the following medications: *Heparin 5000 units SQ TID (Preferred with Epidurals) *Enoxaparin/Lovenox 40 mg SQ daily (WT < 150 kg, CrCl > 30 mL/min) *Enoxaparin/Lovenox 30 mg SQ daily (WT < 150 kg, CrCl > 10-29 mL/min) *Enoxaparin/Lovenox 30 mg SQ BID (WT < 150 kg, CrCl > 30 mL/min) AND *Sequential Compression Device (SCD) Assessment and Plan Assessment and Plan //Suspicion for sepsis = With hypothermia, hypoglycemia. Right leg wound. -Lactate within normal limits. CT with no acute abdominal findings, however marketed bilateral pleural effusions. Right leg wound, elevated ESR in the 40s. = We'll place on broad-spectrum antibiotics. Consult wound care for right leg wound. Follow-up cultures. //Hypoglycemia //Hypothermia //Diabetes mellitus. = Glucose Improved after D50. We'll continue to monitor closely in the ICU. We 'll hold home medications, except for low dose no blocks sliding scale. = Hypothermia improved with bear hugger. Continue Pricilla hugger as needed. Cortisol level within suspected range. Order IV hydrocortisone. //CHF exacerbation = BNP 1000. Bilateral lower extremity edema. Bilateral pleural effusions. We' ll order IV Lasix. Checked monitoring of intake and output. Appreciate nursing assistance. //CK D. Creatinine 1.65 better than baseline. = Avoid nephrotoxins //CAD. //Hypertension = Cardiology following. Appreciate assistance. Continue Effient and aspirin. //Marijuana abuse. Will counsellors patient on this tomorrow //COPD. Not appear to be in acute exacerbation. Nebs as needed. //Recent C. difficile. Due to possible infection, patient describing diarrhea. We'll start on by mouth vancomycin. Follow-up C. difficile testing. //Right leg wound. Poorly healing. Follows with care. Consult wound care here. //Prophylaxis. heparin Discussed Condition With Patient, nurse, ED physician. Physician Certification 2 Midnight Certification Type: Admission for Inpatient Services Order for Inpatient Services The services are ordered in accordance with Medicare regulations or non- Medicare payer requirements, as applicable. In the case of services not specified as inpatient-only, they are appropriately provided as inpatient services in accordance with the 2-midnight benchmark. Estimated LOS (days): 2 days is the estimated time the patient will need to remain in the hospital, assuming treatment plan goals are met and no additional complications. Post-Hospital Plan: Not yet determined Timi Koehler MD Dec 28, 2017 18:52
[2017-12-28] MEDS: ACETAMINOPHEN/HYDROcodone 325 MG/5 MG TAB PO PRN (21:12)
[2017-12-28] MEDS: ATORVASTATIN 40 MG TAB PO SCH (21:12)
[2017-12-28] MEDS: SODIUM CHLORIDE 0.9% FLUSH 10 ML FLUSH IV FLUSH SCH (21:13)
[2017-12-28] MEDS: HEPARIN SODIUM - SQ 10,000 UNITS/ML VIAL SQ SCH (21:13)
[2017-12-28] MEDS: HYDROCORTISONE SOD SUCCINATE 100 MG VIAL IV PUSH SCH (21:13)
[2017-12-28] MEDS ORDERED: CHLORHEXIDINE GLUCONATE 2 % 1 PACK (2 CLOTHS)(extra cloths) TOPICAL PRN (23:30)
[2017-12-29] VITALS (36 sets, daily range): BP systolic 101–146; BP diastolic 54–95; PULSE 79–90; RESP 2–23; TEMP 97.4; O2SAT 81–97
--- NOTE | 2017-12-29 00:26 | EKG ---
Date Performed: 12/28/2017 Time Performed: 07:58:39 PTAGE: 67 years EKG: SINUS BRADYCARDIA LOW QRS VOLTAGE IN EXTREMITY LEADS POSSIBLE ANTERIOR MYOCARDIAL INFARCTIO N ABNORMAL ECG PREVIOUS TRACING : 11/25/2017 16.40 Since the prior tracing, there has been no significant dowling DOCTOR: Vin Kaur Interpretating Date/Time 12/29/2017 00:24:50
[2017-12-29] MEDS: PIPERACIL-TAZO 3.375 GM PREMIX 50 ML IV SCH ×4 (03:15→21:17)
[2017-12-29] MEDS: ACETAMINOPHEN/HYDROcodone 325 MG/5 MG TAB PO PRN (03:15)
[2017-12-29] MEDS: CHLORHEXIDINE GLUCONATE 2 % 1 PACK (2 CLOTHS)(taper/protocol) TOPICAL SCH (03:17)
[2017-12-29] MEDS: RESP: ALBUTEROL 2.5 MG/IPRATROPIUM 0.5 MG NEB (SCH) INH ×6 (03:28→23:12)
[2017-12-29] MEDS: HYDROCORTISONE SOD SUCCINATE 100 MG VIAL IV PUSH SCH (05:19)
[2017-12-29 06:28] LABS: BASOPHIL % 0.3 % (0.0-2.0); LYMPH % 7.1 % (9.0-44.0); LYMPHOCYTE # 0.6 TH/MM3 (1.0-4.8); MEAN CELL VOLUME 89.6 FL (80.0-100.0); MEAN CORPUSCULAR HEMOGLOBIN 29.8 PG (27.0-34.0); MEAN CORPUSCULAR HGB CONC 33.3 % (32.0-36.0); MEAN PLATELET VOLUME 7.8 FL (7.0-11.0); MONO % 1.5 % (0.0-8.0); MONOCYTE # 0.1 TH/MM3 (0-0.9); NEUT % 91.1 % (16.0-70.0); PLATELET COUNT 265 TH/MM3 (150-450); RED BLOOD COUNT 3.35 MIL/MM3 (4.00-5.30); RED CELL DISTRIBUTION WIDTH 16.4 % (11.6-17.2); WHITE BLOOD COUNT 7.7 TH/MM3 (4.0-11.0)
[2017-12-29 06:33] LABS: ALBUMIN 1.5 GM/DL (3.4-5.0); ALKALINE PHOSPHATASE 118 U/L (45-117); ALT (GPT) 9 U/L (10-53); AST (GOT) 13 U/L (15-37); BICARBONATE 20.6 MEQ/L (21.0-32.0); BLOOD UREA NITROGEN 41 MG/DL (7-18); CALCIUM 8.9 MG/DL (8.5-10.1); CHLORIDE 106 MEQ/L (98-107); CREATININE 2.02 MG/DL (0.50-1.00); GLOMERULAR FILTRATION RATE 25 ML/MIN (>89); GLUCOSE,RANDOM 367 MG/DL (74-106); SODIUM (NA) 137 MEQ/L (136-145); TOTAL BILIRUBIN ADULT 0.3 MG/DL (0.2-1.0)
[2017-12-29] MEDS: ASPIRIN 81 MG CHEW TAB CHEW SCH (07:54)
[2017-12-29] MEDS: VANCOMYCIN 500 MG VIAL (FOR ORAL USE ONLY) PO SCH ×4 (07:54→21:18)
[2017-12-29] MEDS: PRASUGREL 10 MG TAB PO SCH (07:54)
[2017-12-29] MEDS: HEPARIN SODIUM - SQ 10,000 UNITS/ML VIAL SQ SCH ×2 (07:55→21:18)
[2017-12-29] MEDS: INSULIN ASPART SUPPLEMENTAL SCALE SQ SCH ×4 (07:55→21:19)
[2017-12-29] MEDS: SODIUM CHLORIDE 0.9% FLUSH 10 ML FLUSH IV FLUSH SCH ×2 (07:56→21:18)
[2017-12-29] MEDS: INSULIN DETEMIR 100 UNITS/ML VIAL SQ SCH ×2 (07:57→21:19)
[2017-12-29] MEDS ORDERED: ISOSORBIDE MONONITRATE 60 MG CR TAB (IMDUR) PO SCH (09:00)
[2017-12-29] MEDS ORDERED: FUROSEMIDE 40 MG TAB PO SCH (09:00)
[2017-12-29 09:52] LABS: BICARBONATE 17.3 MEQ/L (21.0-32.0); CALCIUM 8.9 MG/DL (8.5-10.1); CREATININE 2.11 MG/DL (0.50-1.00)
[2017-12-29] MEDS: FUROSEMIDE 40 MG/4 ML VIAL IV PUSH SCH ×2 (12:17→17:32)
--- NOTE | 2017-12-29 12:38 | MB ---
cc: MIREYA HOROWITZ MD DATE OF CONSULTATION: 12/29/2017 REASON FOR CONSULTATION Chronic kidney disease and generalized edema. HISTORY OF PRESENT ILLNESS This is a 67-year-old female known to me from before, has been following with me in the office with past medical history of hypertension, ischemic heart disease, congestive heart failure, diabetes mellitus, chronic obstructive pulmonary disease, chronic anemia, hyperlipidemia, chronic kidney disease, came to the hospital with low blood sugar. I was called to see the patient because of elevated BUN and creatinine. The patient has known history of chronic kidney disease. Her baseline creatinine is around 1.6-1.8. She came in with creatinine of 1.6 and it has gone up to 2.0 and 2.1. The patient was hypotensive on admission and also she has bradycardia and she was hypothermic. She is much better now, her sugar has gone up after given the D50 and she is currently sitting in the chair with nasal cannula. She has mild shortness of breath. According to her the swelling in the leg has been improving but she still has a lot of edema in the legs. She denies any headache or dizziness at present. No chest pain. She has mild cough which is mainly dry. No history of dysuria, hematuria, difficulty passing urine. PAST MEDICAL HISTORY 1. Hypertension. 2. Hyperlipidemia. 3. Ischemic heart disease. 4. Congestive heart failure. 5. Chronic obstructive pulmonary disease. 6. Diabetes mellitus. 7. History of C-difficile colitis. 8. Chronic kidney disease. PAST SURGICAL HISTORY 1. Appendicectomy. 2. Cardiac catheterization with stenting. 3. Hysterectomy. 4. section. 5. Tonsillectomy. REVIEW OF SYSTEMS The patient has generalized weakness, feeling tired. There is no history of fever. No headache, dizziness or blurring of vision. She denies any nausea or vomiting. She has mild shortness of breath with cough which is mainly dry. No chest pain, no palpitation. No abdominal pain. No history of diarrhea. No dysuria, hematuria. She has swelling in the legs which according to her is better than what it has been. SOCIAL HISTORY There is no history of smoking or alcoholism. FAMILY HISTORY Noncontributory. ALLERGIES She has allergy to PROPOXYPHENE. MEDICATIONS Currently she is on following medications: 1. Furosemide 40 mg IV b.i.d. and 40 mg p.o. daily. 2. Aspirin 81 mg daily. 3. Effient 10 mg daily. 4. Lipitor 40 mg q.h.s. 5. DuoNeb nebulizer. 6. Heparin subcu 5000 units q.12 hour. 7. Insulin detemir 5 units q. 12-hour. 8. Vancomycin 2 grams IV q. 24-hour. 9. Zosyn 3.375 grams IV q.6 hour. 10. Vancomycin p.o. 250 mg q.i.d. 11. Insulin Aspart sliding scale. 12. Zofran as needed. PHYSICAL EXAMINATION GENERAL: The patient is awake, alert, sitting in the chair, not in acute distress. VITAL SIGNS: Last blood pressure was 101/55, temperature is 97, pulse now is 81. She was bradycardic on admission with pulse around 40s to 50s. HEENT: Pupils are mid constricted. Nonicteric sclerae. Conjunctivae pale. NECK: Supple. JVD slightly elevated. LUNGS: The patient has bilateral decreased air entry with basilar rales and scattered wheezing and decreased air entry at the bases. HEART: S1, S2, regular rhythm. ABDOMEN: Soft, lax, distended. There is no tenderness. EXTREMITIES: She has bilateral 2+ edema. INVESTIGATION WBC count 7.7, hemoglobin 10.0, platelet count of 265, neutrophils 91.1, sodium 135, potassium 5.1, chloride 106, bicarb 17.3, BUN 41, creatinine 2.1, glucose 383. Urinalysis showing protein of 300. Urine toxicology is positive for opiates and cannabinoids. Cultures are all pending. IMAGING STUDIES The patient had CT scan of the brain done which shows no acute disease. Abdomen and pelvis CT scan was done without IV contrast and it shows no evidence of free air, large bilateral pleural effusion with ascites and anasarca, colon suggesting improving colitis. Chest x-ray was done which shows bilateral basilar opacities. The kidneys mentioned on the CT scan of the abdomen and pelvis with just the Lim catheter in the bladder. ASSESSMENT/PLAN 1. Chronic kidney disease with some acute worsening. 2. Diabetes mellitus with hypoglycemia. 3. Bradycardia. 4. Right leg wound, rule-out sepsis. 5. Congestive heart failure. 6. COPD. 7. Anemia. 8. History of C-difficile colitis. The patient has chronic kidney disease with proteinuria, most likely she has diabetic nephropathy. She has been on diuretics and still has anasarca and needs to diurese better. I will add metolazone along with the IV Lasix. The patient has previously 24-hour urine showing 3.7 grams of protein. Once the kidney function is stabilized and she can be started on RUSS inhibitor, if her potassium is not very high. Thank you for the consultation and I will follow the patient while she is in the hospital. MD MAYTE Bhat/MICHEAL /11:35 AM /12:11 PM
--- NOTE | 2017-12-29 16:38 | PD.POD.CON ---
Patient Intake Chief Complaint Nonhealing wound right leg Consult Requested by Dr. Koehler Reason for Consult Patient is a 67-year-old female with a nonhealing wound to the right leg. She was last seen by myself at [facility] in July of last year. She has been out of the hospital since July. She was admitted with myxedema and hyperglycemia with bradycardia. Primary Care Physician No Primary Care Physician History of Present Illness 67-year-old diabetic female with a wound of the right leg that started with a dog bite and became a venous stasis ulceration. Not been seen by myself since July 2017 in the wound center. Coded Allergies: propoxyphene (Verified Allergy, Mild, RASH, 11/09/17) Preferred Language to Discuss: Bulgarian Barriers to Learning: None Teaching Method: Discussion Vital Signs Date Time Temp Pulse Resp B/P (MAP) Pulse Ox O2 Delivery O2 Flow Rate FiO2 12/29/17 16:21 83 12/29/17 16:15 81 12/29/17 16:00 82 12/29/17 14:01 79 12/29/17 14:00 80 12/29/17 12:20 82 17 123/57 (79) 12/29/17 12:20 82 12/29/17 12:00 82 18 118/72 (87) 12/29/17 12:00 82 12/29/17 11:20 81 12/29/17 11:20 81 23 101/55 (70) 12/29/17 11:00 83 12/29/17 11:00 83 17 106/62 (77) 12/29/17 10:40 97.0 84 20 122/57 (78) 12/29/17 10:40 84 12/29/17 10:20 97.0 85 10 124/58 (80) 12/29/17 10:20 85 12/29/17 10:00 87 12/29/17 10:00 97.0 87 7 139/64 (89) 97 12/29/17 09:40 97.0 89 7 122/65 (84) 95 12/29/17 09:20 97.0 90 13 121/58 (79) 94 12/29/17 09:00 97.0 90 16 109/55 (73) 92 12/29/17 08:40 97.0 89 17 129/60 (83) 93 12/29/17 08:23 92 Nasal Cannula 2.00 12/29/17 08:20 97.2 85 2 124/60 (81) 94 12/29/17 08:00 97.3 87 8 126/95 (105) 93 12/29/17 08:00 86 12/29/17 07:40 97.3 87 15 127/60 (82) 94 12/29/17 07:20 97.3 87 15 123/60 (81) 93 12/29/17 07:00 97.3 86 12 132/62 (85) 94 12/29/17 06:00 85 12/29/17 04:00 85 12/29/17 04:00 98.1 85 17 118/56 (76) 95 12/29/17 03:28 93 Nasal Cannula 2.00 12/29/17 02:00 80 12/29/17 00:00 87 12/29/17 00:00 99.7 87 19 107/54 (71) 94 12/28/17 23:03 94 Nasal Cannula 2.00 12/28/17 22:00 69 12/28/17 20:00 59 12/28/17 20:00 99.1 59 17 164/70 (101) 97 12/28/17 19:53 96 Nasal Cannula 2.00 12/28/17 18:00 59 Pain scale used: 0-10 numeric scale Pain score: 0 Medications Current Medications Dextrose (D50w (Syr) Inj) 50 ml STK-MED ONCE .ROUTE ; Start 12/28/17 at 07:55; Stop 12/28/17 at 07:56; Status DC Ondansetron HCl (Zofran Inj) 4 mg STK-MED ONCE .ROUTE ; Start 12/28/17 at 07:56 ; Stop 12/28/17 at 07:57; Status DC Sodium Chloride (NS Flush) 2 ml UNSCH PRN IV FLUSH FLUSH AFTER USING IV ACCESS ; Start 12/28/17 at 08:15; Stop 12/28/17 at 11:30; Status DC Sodium Chloride 1,000 ml @ 1,000 mls/hr Q1H IV Last administered on 12/28/17at 08:32; Start 12/28/17 at 08:07; Stop 12/28/17 at 09:06; Status DC Atropine Sulfate (Atropine Inj) 1 mg STK-MED ONCE .ROUTE ; Start 12/28/17 at 08: 17; Stop 12/28/17 at 08:18; Status DC Atropine Sulfate (Atropine Inj) 0.5 mg ONCE ONCE IV PUSH Last administered on 12/28/17at 08:26; Start 12/28/17 at 08:30; Stop 12/28/17 at 08:31; Status DC Metoclopramide HCl (Reglan Inj) 10 mg ONCE ONCE IV PUSH Last administered on at 08:32; Start 12/28/17 at 08:30; Stop 12/28/17 at 08:31; Status DC Ondansetron HCl (Zofran Inj) 4 mg ONCE ONCE IV PUSH ; Start 12/28/17 at 08:30; Stop 12/28/17 at 08:31; Status DC Levothyroxine Sodium (Synthroid Inj) 200 mcg ONCE ONCE IV PUSH Last administered on 12/28/17at 11:15; Start 12/28/17 at 09:45; Stop 12/28/17 at 09:46 ; Status DC Ceftriaxone Sodium 1000 mg/ Sodium Chloride 100 ml @ 200 mls/hr ONCE ONCE IV Last administered on 12/28/17at 11:03; Start 12/28/17 at 10:15; Stop 12/28/17 at 10:44; Status DC Dextrose (D50w (Vial) Inj) 25 ml ONCE ONCE IV PUSH Last administered on at 10:52; Start 12/28/17 at 10:15; Stop 12/28/17 at 10:16; Status DC Dextrose/Sodium Chloride 500 ml @ 50 mls/hr BOLUS ONCE IV Last administered on 12/28/17at 10:52; Start 12/28/17 at 10:15; Stop 12/28/17 at 20:14; Status DC Sodium Chloride (NS Flush) 2 ml UNSCH PRN IV FLUSH FLUSH AFTER USING IV ACCESS ; Start 12/28/17 at 10:45 Sodium Chloride (NS Flush) 2 ml BID IV FLUSH Last administered on 12/29/17at 07: 56; Start 12/28/17 at 21:00 Ondansetron HCl (Zofran Inj) 4 mg Q6H PRN IVP NAUSEA OR VOMITING; Start at 10:45 Naloxone HCl (Narcan Inj) 0.4 mg UNSCH PRN IV PUSH SEE LABEL COMMENTS; Start at 10:45 Magnesium Hydroxide (Milk Of Magnesia Liq) 30 ml Q12H PRN PO Mild constipation ; Start 12/28/17 at 10:45 Sennosides (Senokot) 17.2 mg Q12H PRN PO Moderate constipation; Start 12/28/17 at 10:45 Bisacodyl (Dulcolax Supp) 10 mg DAILY PRN RECTAL SEVERE CONSITIPATION; Start at 10:45 Lactulose (Lactulose Liq) 30 ml DAILY PRN PO SEVERE CONSITIPATION; Start at 10:45 Dextrose (D50w (Vial) Inj) 50 ml UNSCH PRN IV PUSH HYPOGLYCEMIA-SEE COMMENTS; Start 12/28/17 at 10:45 Glucagon (Glucagon Inj) 1 mg STAT PRN IM HYPOGLYCEMIA-SEE COMMENTS; Start 12/28 at 10:45 Insulin Aspart (NovoLOG SUPPLEMENTAL SCALE) 1 ACHS SLIDING SCALE SQ Last administered on 12/29/17at 12:18; Start 12/28/17 at 12:00 Pharmacy Profile Note 0 ml @ 0 mls/hr UNSCH OTHER ; Start 12/28/17 at 14:30 Vancomycin HCl 1000 mg/Sodium Chloride 250 ml @ 250 mls/hr ONCE ONCE IV ; Start 12/28/17 at 14:30; Stop 12/28/17 at 15:29; Status Cancel Furosemide (Lasix Inj) 20 mg ONCE ONCE IV PUSH Last administered on 12/28/17at 15:11; Start 12/28/17 at 15:00; Stop 12/28/17 at 15:01; Status DC Piperacillin Sod/ Tazobactam Sod 50 ml @ 100 mls/hr Q6H IV Last administered on 12/29/17at 14:58; Start 12/28/17 at 15:00 Albuterol/ Ipratropium (Duoneb Neb) 1 ampule Q4HR NEB INH Last administered on 12/29/17at 15:16; Start 12/28/17 at 16:00 Vancomycin HCl (VANCOMYCIN for oral use only) 250 mg QID PO Last administered on 12/29/17at 12:17; Start 12/28/17 at 18:00 Hydrocortisone Sodium Succinate (SoluCORTEF INJ) 25 mg Q8HR IV PUSH Last administered on 12/29/17at 05:19; Start 12/28/17 at 22:00; Stop 12/29/17 at 07:28 ; Status DC Hydrocortisone Sodium Succinate (SoluCORTEF INJ) 50 mg ONCE ONCE IV PUSH Last administered on 12/28/17at 15:11; Start 12/28/17 at 15:00; Stop 12/28/17 at 15:01 ; Status DC Vancomycin HCl 2000 mg/Sodium Chloride 520 ml @ 257.5 mls/ hr Q24H IV Last administered on 12/28/17at 15:39; Start 12/28/17 at 16:00; Status Future Hold Furosemide (Lasix Inj) 40 mg BID@,18 IV PUSH Last administered on 12/29/17at 12:17; Start 12/28/17 at 18:00 Furosemide (Lasix) 40 mg DAILY PO Last administered on 12/29/17at 07:54; Start 12/29/17 at 09:00; Stop 12/29/17 at 11:45; Status DC Chlorothiazide Sodium (Diuril Inj) 500 mg ONCE ONCE IV Last administered on at 19:02; Start 12/28/17 at 18:45; Stop 12/28/17 at 18:48; Status DC Aspirin (Aspirin Chew) 81 mg DAILY CHEW Last administered on 12/29/17at 07:54; Start 12/29/17 at 09:00 Atorvastatin Calcium (Lipitor) 40 mg HS PO Last administered on 12/28/17at 21:12 ; Start 12/28/17 at 21:00 Isosorbide Mononitrate (Imdur) 60 mg DAILY PO ; Start 12/29/17 at 09:00; Stop at 09:00; Status DC Prasugrel (Effient) 10 mg DAILY PO Last administered on 12/29/17at 07:54; Start 12/29/17 at 09:00 Heparin Sodium (Porcine) (Heparin Inj) 5,000 units Q12HR SQ Last administered on 12/29/17at 07:55; Start 12/28/17 at 21:00 Acetaminophen/ Hydrocodone Bitart ([place] 5-325 Mg) 1 tab Q6H PRN PO PAIN 1-10 Last administered on 12/29/17at 03:15; Start 12/28/17 at 20:45 Miscellaneous Information Patient in critical care unit? Ass... Q361D .XX Last administered on 12/28/17at 23:30; Start 12/28/17 at 23:30 Chlorhexidine Gluconate (Chlorhexidine 2% Cloth) 3 pack DAILY@04 TOPICAL Last administered on 12/29/17at 03:17; Start 12/29/17 at 04:00; Stop 01/02/18 at 04:01 Chlorhexidine Gluconate (Chlorhexidine 2% Cloth) 3 pack UNSCH PRN TOPICAL HYGIENIC CARE; Start 12/28/17 at 23:30; Stop 01/02/18 at 23:27 Insulin Detemir (Levemir Inj) 5 units Q12HR SQ Last administered on 12/29/17at 07:57; Start 12/29/17 at 09:00 Metolazone (Zaroxolyn) 2.5 mg BID PO ; Start 12/29/17 at 21:00 Past, Family & Social History Past Medical History HEENT: REPORTS HX OF: Recurrent sinusitis Endocrine: REPORTS HX OF: Diabetes mellitus Respiratory: REPORTS HX OF: Allergies/hay fever, Asthma, COPD Cardiovascular: REPORTS HX OF: Atrial fibrillation, Heart valve disease, Hypertension Genitourinary: REPORTS HX OF: Kidney disease, Past UTI Age at Menarche: 13 Age at Menopause: 45 History: Live Births: 2 Musculoskeletal: REPORTS HX OF: Osteoporosis Psychiatric: REPORTS HX OF: Anxiety Disabilities: REPORTS HX OF: Hearing deficit, Vision deficit Past Surgical History HEENT: REPORTS HX OF: Tonsillectomy (1972) Cardiovascular: REPORTS HX OF: Angioplasty (08/2015), Coronary stent (08/2015) Gynecologic: REPORTS HX OF: delivery (1983), Hysterectomy (1993) Neurologic: REPORTS HX OF: Spinal surgery (L-1979 never decompression) Breast: DENIES HX OF: Mastectomy, bilateral, Mastectomy, left, Mastectomy, right Family Medical History FH: colon cancer G8 FATHER, , Age:40 FH: muscular dystrophy G8 MOTHER Substance Use Substance Use: Denies use Exam-Podiatry Constitutional General appearance: comfortable Nutritional status: overweight Orientation: alert and oriented x3 Dermatological Exam Skin Temp - Right: Within Normal Limits Skin Texture - Right: Within Normal Limits Skin Elasticity - Right: Within Normal Limits Skin Tugor - Right: Within Normal Limits Hair Growth - Right: Within Normal Limits Pigmentation - Right: Within Normal Limits Skin Temp - Left: Within Normal Limits Skin Texture - Left: Within Normal Limits Skin Elasticity - Left: Within Normal Limits Skin Tugor - Left: Within Normal Limits Hair Growth - Left: Within Normal Limits Pigmentation - Left: Within Normal Limits Ulcers: Location/Measurements Large venous stasis ulceration of the right leg with good granulating base which bleeds easily upon light debridement with gauze. Abnormal Nail Conditions Discoloration: Toe #5 (R), Toe #4 (R), Toe #3 (R), Toe #2 (R), Toe #1 (R), Toe #1 (L), Toe #2 (L), Toe #3 (L), Toe #4 (L), Toe #5 (L) Thickening: Toe #5 (R), Toe #4 (R), Toe #3 (R), Toe #2 (R), Toe #1 (R), Toe #1 (L), Toe #2 (L), Toe #3 (L), Toe #4 (L), Toe #5 (L) Yellow, Brittle, &/or Carlos: Toe #5 (R), Toe #4 (R), Toe #3 (R), Toe #2 (R) , Toe #1 (R), Toe #1 (L), Toe #2 (L), Toe #3 (L), Toe #4 (L), Toe #5 (L) Vascular/Lymphatic Exam R Dorsails Pedis: Palpable L Dorsails Pedis: Palpable R Posterior Tibial: Palpable L Posterior Tibial: Palpable Neurologic Exam Present on right: Tingling Present on left: Tingling Muscle Strength Dorsiflexion (Right): Normal Plantarflexion (Right): Normal Inversion (Right): Normal Eversion (Right): Normal Digital (Right): Normal Dorsiflexion (Left): Normal Plantarflexion (Left): Normal Inversion (Left): Normal Eversion (Left): Normal Digital (Left): Normal Foot Range of Motion Dorsiflexion (Right): Normal Plantarflexion (Right): Normal Inversion (Right): Normal Eversion (Right): Normal Digital (Right): Normal Dorsiflexion (Left): Normal Plantarflexion (Left): Normal Inversion (Left): Normal Eversion (Left): Normal Digital (Left): Normal Extremities Edema: Left lower extremity: 1+, pitting, ankle, leg Right lower extremity: 1+, pitting, ankle, leg Wound Assessment Wound Information - Wound One Wound Location: Right anterior leg Wound Two Wound Location: blister on the medial heel, right foot Lab and Radiology Results Laboratory Laboratory Tests Test 12/28/17 08:15 12/28/17 15:21 12/29/17 05:45 White Blood Count 6.2 TH/MM3 5.2 TH/MM3 7.7 TH/MM3 Red Blood Count 3.85 MIL/MM3 3.28 MIL/MM3 3.35 MIL/MM3 Hemoglobin 11.3 GM/DL 10.1 GM/DL 10.0 GM/DL Hematocrit 33.6 % 28.6 % 30.0 % Mean Corpuscular Volume 87.3 FL 87.3 FL 89.6 FL Mean Corpuscular Hemoglobin 29.4 PG 30.9 PG 29.8 PG Mean Corpuscular Hemoglobin Concent 33.7 % 35.4 % 33.3 % Red Cell Distribution Width 16.2 % 16.0 % 16.4 % Platelet Count 314 TH/MM3 274 TH/MM3 265 TH/MM3 Mean Platelet Volume 7.5 FL 7.3 FL 7.8 FL Neutrophils (%) (Auto) 62.3 % 91.1 % Lymphocytes (%) (Auto) 28.5 % 7.1 % Monocytes (%) (Auto) 5.4 % 1.5 % Eosinophils (%) (Auto) 3.2 % 0.0 % Basophils (%) (Auto) 0.6 % 0.3 % Neutrophils # (Auto) 3.9 TH/MM3 7.0 TH/MM3 Lymphocytes # (Auto) 1.8 TH/MM3 0.6 TH/MM3 Monocytes # (Auto) 0.3 TH/MM3 0.1 TH/MM3 Eosinophils # (Auto) 0.2 TH/MM3 0.0 TH/MM3 Basophils # (Auto) 0.0 TH/MM3 0.0 TH/MM3 CBC Comment DIFF FINAL DIFF FINAL Differential Comment Erythrocyte Sedimentation Rate 47 mm/hr Laboratory Tests Test 12/28/17 08:15 12/28/17 09:30 12/28/17 14:07 12/29/17 05:45 Blood Urea Nitrogen 35 MG/DL 41 MG/DL Creatinine 1.65 MG/DL 2.02 MG/DL Random Glucose 69 MG/DL 76 MG/DL 367 MG/DL Total Protein 5.9 GM/DL 5.0 GM/DL Albumin 1.6 GM/DL 1.5 GM/DL Calcium Level 8.9 MG/DL 8.9 MG/DL Alkaline Phosphatase 146 U/L 118 U/L Aspartate Amino Transf (AST/SGOT) 24 U/L 13 U/L Alanine Aminotransferase (ALT/SGPT) 10 U/L 9 U/L Total Bilirubin 0.1 MG/DL 0.3 MG/DL Sodium Level 140 MEQ/L 137 MEQ/L Potassium Level 4.5 MEQ/L 5.5 MEQ/L Chloride Level 109 MEQ/L 106 MEQ/L Carbon Dioxide Level 23.3 MEQ/L 20.6 MEQ/L Anion Gap 8 MEQ/L 10 MEQ/L Estimat Glomerular Filtration Rate 31 ML/MIN 25 ML/MIN Total Creatine Kinase 41 U/L Troponin I LESS THAN 0.02 NG/ML B-Type Natriuretic Peptide 1044 PG/ML Thyroid Stimulating Hormone 3rd Gen 10.700 uIU/ML Lactic Acid Level 1.2 mmol/L Ammonia 10 MCMOL/L C-Reactive Protein 0.38 MG/DL Free Thyroxine 1.68 NG/DL Total Triiodothyronine 99 NG/DL Random Cortisol 34.7 MCG/DL Test 12/29/17 09:10 Blood Urea Nitrogen 41 MG/DL Creatinine 2.11 MG/DL Random Glucose 383 MG/DL Calcium Level 8.9 MG/DL Sodium Level 135 MEQ/L Potassium Level 5.1 MEQ/L Chloride Level 106 MEQ/L Carbon Dioxide Level 17.3 MEQ/L Anion Gap 12 MEQ/L Estimat Glomerular Filtration Rate 23 ML/MIN Thyroid Stimulating Hormone 3rd Gen 2.640 uIU/ML Microbiology Date/Time Source Procedure Growth Status 12/28/17 09:30 Blood Peripheral Aerobic Blood Culture - Preliminary NO GROWTH IN 1 DAY Resulted 12/28/17 09:30 Blood Peripheral Anaerobic Blood Culture - Preliminary NO GROWTH IN 1 DAY Resulted 12/28/17 09:25 Blood Peripheral Aerobic Blood Culture - Preliminary NO GROWTH IN 1 DAY Resulted 12/28/17 09:25 Anaerobic Blood Culture - Preliminary Gram Positive Cocci Resulted 12/28/17 08:25 Urine Catheterized Urine Urine Culture - Preliminary NO GROWTH IN 24 HOURS. Resulted Remarks Last [address] 12/28/17 0807 Signed Impressions: Service Date/Time: Thursday, December 28, 2017 09:04 - CONCLUSION: No acute disease. No significant change has occurred. Héctor Carmona MD Chest X-Ray 12/28/17 Signed Impressions: Service Date/Time: Thursday, December 28, 2017 09:34 - CONCLUSION: By basilar opacities primarily representing effusion stable on the left diminished radiographically on the right although very prominent on CT scan this same day Héctor Carmona MD Abdomen/Pelvis CT 12/28/17 Signed Impressions: Service Date/Time: Thursday, December 28, 2017 09:07 - CONCLUSION: Stable abdomen. No evidence of free air and no evidence of obstruction. Large bilateral pleural effusions with ascites and anasarca. Diverticuli uncomplicated of the colon with diminished mural thickening of the colon suggesting improving colitis. Lim catheter in place in the urinary bladder. Héctor Carmona MD Radiology Last Impressions Head CT 12/28/17 08 Signed Impressions: Service Date/Time: Thursday, December 28, 2017 09:04 - CONCLUSION: No acute disease. No significant change has occurred. Héctor Carmona MD Chest X-Ray 12/28/17 Signed Impressions: Service Date/Time: Thursday, December 28, 2017 09:34 - CONCLUSION: By basilar opacities primarily representing effusion stable on the left diminished radiographically on the right although very prominent on CT scan this same day Héctor Carmona MD Abdomen/Pelvis CT 12/28/17 Signed Impressions: Service Date/Time: Thursday, December 28, 2017 09:07 - CONCLUSION: Stable abdomen. No evidence of free air and no evidence of obstruction. Large bilateral pleural effusions with ascites and anasarca. Diverticuli uncomplicated of the colon with diminished mural thickening of the colon suggesting improving colitis. Lim catheter in place in the urinary bladder. 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 Elevate legs at all times. Follow-up with me in the wound center after discharge. No baths or showers. 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
--- NOTE | 2017-12-29 17:08 | PD.CARD.PN ---
Subjective Subjective Remarks Feels better, no CP, mild SOB Objective Medications Current Medications Medications (Trade) Dose Ordered Sig/Marie Route Start Time Stop Time Status Last Admin (NS Flush) 2 ml UNSCH PRN IV FLUSH 12/28/17 10:45 (NS Flush) 2 ml BID IV FLUSH 12/28/17 21:00 12/29/17 07:56 (Zofran Inj) 4 mg Q6H PRN IVP 12/28/17 10:45 (Narcan Inj) 0.4 mg UNSCH PRN IV PUSH 12/28/17 10:45 (Milk Of Magnesia Liq) 30 ml Q12H PRN PO 12/28/17 10:45 (Senokot) 17.2 mg Q12H PRN PO 12/28/17 10:45 (Dulcolax Supp) 10 mg DAILY PRN RECTAL 12/28/17 10:45 (Lactulose Liq) 30 ml DAILY PRN PO 12/28/17 10:45 (D50w (Vial) Inj) 50 ml UNSCH PRN IV PUSH 12/28/17 10:45 (Glucagon Inj) 1 mg STAT PRN IM 12/28/17 10:45 (NovoLOG SUPPLEMENTAL SCALE) 1 ACHS SLIDING SCALE SQ 12/28/17 12:00 12/29/17 12:18 Pharmacy Profile Note 0 ml @ 0 mls/hr UNSCH OTHER 12/28/17 14:30 Piperacillin Sod/ Tazobactam Sod 50 ml @ 100 mls/hr Q6H IV 12/28/17 15:00 12/29/17 14:58 (Duoneb Neb) 1 ampule Q4HR NEB INH 12/28/17 16:00 12/29/17 15:16 (VANCOMYCIN for oral use only) 250 mg QID PO 12/28/17 18:00 12/29/17 12:17 Vancomycin HCl 2000 mg/Sodium Chloride 520 ml @ 257.5 mls/ hr Q24H IV 12/28/17 16:00 Future Hold 12/28/17 15:39 (Lasix Inj) 40 mg BID@09,18 IV PUSH 12/28/17 18:00 12/29/17 12:17 (Aspirin Chew) 81 mg DAILY CHEW 12/29/17 09:00 12/29/17 07:54 (Lipitor) 40 mg HS PO 12/28/17 21:00 12/28/17 21:12 (Effient) 10 mg DAILY PO 12/29/17 09:00 12/29/17 07:54 (Heparin Inj) 5,000 units Q12HR SQ 12/28/17 21:00 12/29/17 07:55 ([place] 5-325 Mg) 1 tab Q6H PRN PO 12/28/17 20:45 12/29/17 03:15 Miscellaneous Information Patient in critical care unit? Ass... Q361D .XX 12/28/17 23:30 12/28/17 23:30 (Chlorhexidine 2% Cloth) 3 pack DAILY@04 TOPICAL 12/29/17 04:00 01/02/18 04:01 12/29/17 03:17 (Chlorhexidine 2% Cloth) 3 pack UNSCH PRN TOPICAL 12/28/17 23:30 01/02/18 23:27 (Levemir Inj) 5 units Q12HR SQ 12/29/17 09:00 12/29/17 07:57 (Zaroxolyn) 2.5 mg BID PO 12/29/17 21:00 Vital Signs / I&O Vital Signs Date Time Temp Pulse Resp B/P (MAP) Pulse Ox O2 Delivery O2 Flow Rate FiO2 12/29/17 16:21 83 12/29/17 16:15 81 12/29/17 16:00 82 12/29/17 14:01 79 12/29/17 14:00 80 12/29/17 12:20 82 17 123/57 (79) 12/29/17 12:20 82 12/29/17 12:00 82 18 118/72 (87) 12/29/17 12:00 82 12/29/17 11:20 81 12/29/17 11:20 81 23 101/55 (70) 12/29/17 11:00 83 12/29/17 11:00 83 17 106/62 (77) 12/29/17 10:40 97.0 84 20 122/57 (78) 12/29/17 10:40 84 12/29/17 10:20 97.0 85 10 124/58 (80) 12/29/17 10:20 85 12/29/17 10:00 87 12/29/17 10:00 97.0 87 7 139/64 (89) 97 12/29/17 09:40 97.0 89 7 122/65 (84) 95 12/29/17 09:20 97.0 90 13 121/58 (79) 94 12/29/17 09:00 97.0 90 16 109/55 (73) 92 12/29/17 08:40 97.0 89 17 129/60 (83) 93 12/29/17 08:23 92 Nasal Cannula 2.00 12/29/17 08:20 97.2 85 2 124/60 (81) 94 12/29/17 08:00 97.3 87 8 126/95 (105) 93 12/29/17 08:00 86 12/29/17 07:40 97.3 87 15 127/60 (82) 94 12/29/17 07:20 97.3 87 15 123/60 (81) 93 12/29/17 07:00 97.3 86 12 132/62 (85) 94 12/29/17 06:00 85 12/29/17 04:00 85 12/29/17 04:00 98.1 85 17 118/56 (76) 95 12/29/17 03:28 93 Nasal Cannula 2.00 12/29/17 02:00 80 12/29/17 00:00 87 12/29/17 00:00 99.7 87 19 107/54 (71) 94 12/28/17 23:03 94 Nasal Cannula 2.00 12/28/17 22:00 69 12/28/17 20:00 59 12/28/17 20:00 99.1 59 17 164/70 (101) 97 12/28/17 19:53 96 Nasal Cannula 2.00 12/28/17 18:00 59 I/O 12/28/17 12/28/17 12/28/17 12/29/17 12/29/17 12/29/17 07:00 15:00 23:00 07:00 15:00 23:00 Intake Total 500 ml 1550 ml Output Total 250 ml 400 ml Balance 500 ml -250 ml 1150 ml Intake Oral 200 ml IV Total 500 ml 1350 ml Output Urine Total 250 ml 400 ml Physical Exam GENERAL: In NAD. SKIN: Warm and dry. HEAD: Normocephalic. EYES: No scleral icterus. No injection or drainage. NECK: Supple, trachea midline. No JVD or lymphadenopathy. CARDIOVASCULAR: Regular rate and rhythm without murmurs, gallops, or rubs. RESPIRATORY: Breath sounds equal bilaterally. No accessory muscle use. GASTROINTESTINAL: Abdomen soft, non-tender, nondistended. MUSCULOSKELETAL: No cyanosis, bilat LE edema, R LE wound. Laboratory Laboratory Tests Test 12/28/17 18:00 12/29/17 05:45 12/29/17 09:10 Nasal Screen MRSA (PCR) MRSA DETECTED White Blood Count 7.7 TH/MM3 Red Blood Count 3.35 MIL/MM3 Hemoglobin 10.0 GM/DL Hematocrit 30.0 % Mean Corpuscular Volume 89.6 FL Mean Corpuscular Hemoglobin 29.8 PG Mean Corpuscular Hemoglobin Concent 33.3 % Red Cell Distribution Width 16.4 % Platelet Count 265 TH/MM3 Mean Platelet Volume 7.8 FL Neutrophils (%) (Auto) 91.1 % Lymphocytes (%) (Auto) 7.1 % Monocytes (%) (Auto) 1.5 % Eosinophils (%) (Auto) 0.0 % Basophils (%) (Auto) 0.3 % Neutrophils # (Auto) 7.0 TH/MM3 Lymphocytes # (Auto) 0.6 TH/MM3 Monocytes # (Auto) 0.1 TH/MM3 Eosinophils # (Auto) 0.0 TH/MM3 Basophils # (Auto) 0.0 TH/MM3 CBC Comment DIFF FINAL Differential Comment Blood Urea Nitrogen 41 MG/DL 41 MG/DL Creatinine 2.02 MG/DL 2.11 MG/DL Random Glucose 367 MG/DL 383 MG/DL Total Protein 5.0 GM/DL Albumin 1.5 GM/DL Calcium Level 8.9 MG/DL 8.9 MG/DL Alkaline Phosphatase 118 U/L Aspartate Amino Transf (AST/SGOT) 13 U/L Alanine Aminotransferase (ALT/SGPT) 9 U/L Total Bilirubin 0.3 MG/DL Sodium Level 137 MEQ/L 135 MEQ/L Potassium Level 5.5 MEQ/L 5.1 MEQ/L Chloride Level 106 MEQ/L 106 MEQ/L Carbon Dioxide Level 20.6 MEQ/L 17.3 MEQ/L Anion Gap 10 MEQ/L 12 MEQ/L Estimat Glomerular Filtration Rate 25 ML/MIN 23 ML/MIN Thyroid Stimulating Hormone 3rd Gen 2.640 uIU/ML Assessment and Plan Problem List: (1) Bradycardia ICD Codes: R00.1 - Bradycardia, unspecified Status: Acute (2) Altered mental status ICD Codes: R41.82 - Altered mental status, unspecified Status: Acute (3) Hypoglycemia ICD Codes: E16.2 - Hypoglycemia, unspecified Status: Acute (4) CHF (congestive heart failure) ICD Codes: I50.9 - Heart failure, unspecified (5) Renal insufficiency ICD Codes: N28.9 - Disorder of kidney and ureter, unspecified (6) DM (diabetes mellitus) ICD Codes: E11.9 - Type 2 diabetes mellitus without complications Status: Chronic (7) CAD (coronary artery disease) ICD Codes: I25.10 - Atherosclerotic heart disease of [place] coronary artery without angina pectoris Status: Chronic (8) Chronic kidney disease, stage 4 (severe) ICD Codes: N18.4 - Chronic kidney disease, stage 4 (severe) Status: Chronic Assessment and Plan No CP or excessive dyspnea. Bradycardia resolved. CXR w bilat pleural effusions. She had drug eluting stent in Jun 2017; Effient and ASA cannot be stopped unless life threatening emergency occur for 1 year. High risk of stent thrombosis off meds. Cont and adjust diuresis. Nephrology eval and mgmt. Increase activity. PT. Problem Qualifiers (1) Altered mental status: Qualified Codes: R40.0 - Somnolence (2) DM (diabetes mellitus): Qualified Codes: E11.628 - Type 2 diabetes mellitus with other skin complications; Z79.4 - halfway (current) use of insulin (3) CAD (coronary artery disease): Qualified Codes: I25.10 - Atherosclerotic heart disease of [place] coronary artery without angina pectoris Dunia Reddy MD Dec 29, 2017 17:08
[2017-12-29] MEDS: ATORVASTATIN 40 MG TAB PO SCH (21:18)
--- NOTE | 2017-12-29 22:09 | HHI.PR ---
Subjective Remarks Patient seen this morning around 9:30 AM. Says she is feeling better. Denies any chest pain or shortness of breath. Denies any nausea or vomiting. She says that she believes she was hypoglycemic due to not eating anything all day, still taking her long-acting insulin. She had been nauseous most of the day before admission. Reports nausea has resolved. Objective Vital Signs Date Time Temp Pulse Resp B/P (MAP) Pulse Ox O2 Delivery O2 Flow Rate FiO2 12/29/17 19:27 96 Nasal Cannula 2.00 12/29/17 18:21 79 12/29/17 18:01 82 12/29/17 18:00 82 12/29/17 17:21 81 18 146/60 (88) 96 12/29/17 17:01 82 22 144/67 (92) 81 12/29/17 16:40 81 20 133/63 (86) 94 12/29/17 16:21 83 23 141/67 (91) 94 12/29/17 16:21 83 12/29/17 16:15 81 12/29/17 16:00 82 19 137/64 (88) 96 12/29/17 16:00 82 12/29/17 14:01 79 12/29/17 14:00 80 12/29/17 12:20 82 17 123/57 (79) 12/29/17 12:20 82 12/29/17 12:00 82 18 118/72 (87) 12/29/17 12:00 82 12/29/17 11:20 81 12/29/17 11:20 81 23 101/55 (70) 12/29/17 11:00 83 12/29/17 11:00 83 17 106/62 (77) 12/29/17 10:40 97.0 84 20 122/57 (78) 12/29/17 10:40 84 12/29/17 10:20 97.0 85 10 124/58 (80) 12/29/17 10:20 85 12/29/17 10:00 87 12/29/17 10:00 97.0 87 7 139/64 (89) 97 12/29/17 09:40 97.0 89 7 122/65 (84) 95 12/29/17 09:20 97.0 90 13 121/58 (79) 94 12/29/17 09:00 97.0 90 16 109/55 (73) 92 12/29/17 08:40 97.0 89 17 129/60 (83) 93 12/29/17 08:23 92 Nasal Cannula 2.00 12/29/17 08:20 97.2 85 2 124/60 (81) 94 12/29/17 08:00 97.3 87 8 126/95 (105) 93 12/29/17 08:00 86 12/29/17 07:40 97.3 87 15 127/60 (82) 94 12/29/17 07:20 97.3 87 15 123/60 (81) 93 12/29/17 07:00 97.3 86 12 132/62 (85) 94 12/29/17 06:00 85 12/29/17 04:00 85 12/29/17 04:00 98.1 85 17 118/56 (76) 95 12/29/17 03:28 93 Nasal Cannula 2.00 12/29/17 02:00 80 12/29/17 00:00 87 12/29/17 00:00 99.7 87 19 107/54 (71) 94 12/28/17 23:03 94 Nasal Cannula 2.00 I/O 12/28/17 12/28/17 12/28/17 12/29/17 12/29/17 12/29/17 07:00 15:00 23:00 07:00 15:00 23:00 Intake Total 500 ml 1550 ml 900 ml Output Total 250 ml 400 ml 200 ml Balance 500 ml -250 ml 1150 ml 700 ml Intake Oral 200 ml 900 ml IV Total 500 ml 1350 ml Output Urine Total 250 ml 400 ml 200 ml Result Diagram: 12/29/17 0545 12/29/17 0910 Objective Remarks GENERAL: patient sitting up in bed. Appears comfortable.alert and oriented 3. SKIN: Warm and dry. HEAD: Normocephalic. EYES: No scleral icterus. No injection or drainage. NECK: Supple, trachea midline. No JVD or lymphadenopathy. CARDIOVASCULAR: Regular rate and rhythm without murmurs, gallops, or rubs. RESPIRATORY: Breath sounds equal bilaterally. No accessory muscle use. GASTROINTESTINAL: Abdomen soft, non-tender, nondistended. MUSCULOSKELETAL: No cyanosis. anasarca. Dependent edema. No erythema. Right leg wound dressed with dressing clean and dry and intact. BACK: Nontender without obvious deformity. No CVA tenderness. A/P Assessment and Plan //Suspicion for sepsis //Gram-positive bacteremia = With hypothermia, hypoglycemia. Right leg wound. -Lactate within normal limits. CT with no acute abdominal findings, however marketed bilateral pleural effusions. Right leg wound, elevated ESR in the 40s. = We'll place on broad-spectrum antibiotics. Consult wound care for right leg wound. Follow-up cultures. = 12/29. One out of 4 blood cultures from admission with gram-positive bacilli. Repeat blood cultures. Order echocardiogram. Consult infectious disease. Follow cultures. //Hypothermia //Elevated TSH 10 on admission = Hypothermia improved with bear hugger. Continue Pricilla hugger as needed. Cortisol level within suspected range. Order IV hydrocortisone. = Hypothermia much improved. TSH within normal limits. Not myxedema coma. Patient likely overdose on insulin accidentally due to poor by mouth intake on the day of admission. Would expect elevated TSH during moment's of stress. //Severe malnutrition. Patient tolerating diet. Encourage with Griffith supplements. We'll order albumin to help with anasarca. //DM //With hypoglycemia on admission = Glucose Improved after D50. We'll continue to monitor closely in the ICU. We 'll hold home medications, except for low dose no blocks sliding scale. = 12/29. Hyperglycemia in the 300s. Will change insulin sliding scale. //CHF exacerbation = BNP 1000. Bilateral lower extremity edema. Bilateral pleural effusions. We' ll order IV Lasix. Checked monitoring of intake and output. Appreciate nursing assistance. = Continue IV furosemide. Start on albumin. Encourage nutrition. //CK D. = Creatinine 2.1, around baseline. Nephrology following. Appreciate assistance. //CAD. //Hypertension = Cardiology following. Appreciate assistance. Continue Effient and aspirin. //Marijuana abuse. Will deputy general counsel patient on this tomorrow //COPD. Not appear to be in acute exacerbation. Nebs as needed. //Recent C. difficile. Due to possible infection, patient describing diarrhea. We'll start on by mouth vancomycin. Follow-up C. difficile testing. =no bms yet //Right leg wound. Poorly healing. Follows with care. Consult wound care here. = Appreciate wound care assistance. //Prophylaxis. heparin Discharge Planning physical therapy following. = Patient will likely need SNF. not doing well at home. Appreciate case management assistance. Timi Koehler MD Dec 29, 2017 22:09
[2017-12-29] MEDS: METOLAZONE 2.5 MG TAB PO SCH (23:42)
[2017-12-29] MEDS: ALBUMIN 25% INJ 50 ML IV SCH (23:46)
[2017-12-30] VITALS (13 sets, daily range): BP systolic 140–196; BP diastolic 69–86; PULSE 84–104; RESP 14–21; TEMP 97.3–98.6; O2SAT 96–100
[2017-12-30] MEDS: RESP: ALBUTEROL 2.5 MG/IPRATROPIUM 0.5 MG NEB (SCH) INH ×6 (02:42→22:57)
[2017-12-30] MEDS: CHLORHEXIDINE GLUCONATE 2 % 1 PACK (2 CLOTHS)(taper/protocol) TOPICAL SCH (03:30)
[2017-12-30] MEDS: PIPERACIL-TAZO 3.375 GM PREMIX 50 ML IV SCH ×4 (03:31→20:49)
[2017-12-30] MEDS: ACETAMINOPHEN/HYDROcodone 325 MG/5 MG TAB PO PRN ×2 (03:40→16:32)
[2017-12-30 05:24] LABS: AUTOMATED NEUTROPHIL # 8.6 TH/MM3 (1.8-7.7); BASOPHIL % 0.4 % (0.0-2.0); EOSINOPHIL % 0.3 % (0.0-4.0); HEMATOCRIT 26.6 % (35.0-46.0); LYMPH % 10.4 % (9.0-44.0); LYMPHOCYTE # 1.1 TH/MM3 (1.0-4.8); MEAN CELL VOLUME 88.4 FL (80.0-100.0); MEAN CORPUSCULAR HEMOGLOBIN 29.8 PG (27.0-34.0); MEAN CORPUSCULAR HGB CONC 33.7 % (32.0-36.0); MEAN PLATELET VOLUME 7.8 FL (7.0-11.0); MONO % 7.3 % (0.0-8.0); MONOCYTE # 0.8 TH/MM3 (0-0.9); NEUT % 81.6 % (16.0-70.0); PLATELET COUNT 254 TH/MM3 (150-450); RED BLOOD COUNT 3.01 MIL/MM3 (4.00-5.30); RED CELL DISTRIBUTION WIDTH 16.6 % (11.6-17.2); WHITE BLOOD COUNT 10.5 TH/MM3 (4.0-11.0)
[2017-12-30 05:57] LABS: ALBUMIN 1.8 GM/DL (3.4-5.0); BICARBONATE 21.4 MEQ/L (21.0-32.0); CALCIUM 8.7 MG/DL (8.5-10.1); CREATININE 2.14 MG/DL (0.50-1.00); MAGNESIUM 2.3 MG/DL (1.5-2.5); PHOSPHORUS 4.2 MG/DL (2.5-4.9); RANDOM VANCOMYCIN 16.3 COMMENT
[2017-12-30] MEDS: VANCOMYCIN 500 MG VIAL (FOR ORAL USE ONLY) PO SCH ×9 (06:00→20:51)
[2017-12-30] MEDS: INSULIN ASPART SUPPLEMENTAL SCALE SQ SCH ×4 (08:00→21:08)
[2017-12-30] MEDS: METOLAZONE 2.5 MG TAB PO SCH ×2 (09:00→20:50)
[2017-12-30] MEDS: INSULIN DETEMIR 100 UNITS/ML VIAL SQ SCH ×2 (09:00→20:50)
[2017-12-30] MEDS: FUROSEMIDE 40 MG/4 ML VIAL IV PUSH SCH ×2 (09:17→18:37)
[2017-12-30] MEDS: PRASUGREL 10 MG TAB PO SCH (09:17)
[2017-12-30] MEDS: SODIUM CHLORIDE 0.9% FLUSH 10 ML FLUSH IV FLUSH SCH ×2 (09:18→20:49)
[2017-12-30] MEDS: ASPIRIN 81 MG CHEW TAB CHEW SCH (09:18)
[2017-12-30] MEDS: HEPARIN SODIUM - SQ 10,000 UNITS/ML VIAL SQ SCH ×2 (09:20→20:50)
[2017-12-30] MEDS: ALBUMIN 25% INJ 50 ML IV SCH (10:56)
[2017-12-30] MEDS ORDERED: VANCOMYCIN INJ 1,500 MG in SODIUM CHLORID 0.9% 500 ML INJ 500 ML IV ONE (11:00)
--- NOTE | 2017-12-30 13:06 | HHI.NPPN ---
Subjective History of Present Illness This is a 67-year-old female known to me from before, has been following with me in the office with past medical history of hypertension, ischemic heart disease, congestive heart failure, diabetes mellitus, chronic obstructive pulmonary disease, chronic anemia, hyperlipidemia, chronic kidney disease, came to the hospital with low blood sugar. I was called to see the patient because of elevated BUN and creatinine. The patient has known history of chronic kidney disease. Her baseline creatinine is around 1.6-1.8. She came in with creatinine of 1.6 and it has gone up to 2.0 and 2.1. The patient was hypotensive on admission and also she has bradycardia and she was hypothermic. She is much better now, her sugar has gone up after given the D50 and she is currently sitting in the chair with nasal cannula. She has mild shortness of breath. According to her the swelling in the leg has been improving but she still has a lot of edema in the legs. She denies any headache or dizziness at present. No chest pain. She has mild cough which is mainly dry. No history of dysuria, hematuria, difficulty passing urine. (Jessica Clemons) Review of Systems Respiratory Respiratory Remarks Mild SOB (Jessica Clemons) Cardiovascular Cardiac Remarks Denies CP (Jessica Clemons) Gastrointestinal Gastrointestinal: Diarrhea (Jessica Clemons) Genitourinary Genitourinary: Burning (Jessica Clemons) Objective Data Data Vital Signs Date Time Temp Pulse Resp B/P (MAP) Pulse Ox O2 Delivery O2 Flow Rate FiO2 12/30/17 11:32 97 2.00 12/30/17 06:00 86 12/30/17 04:00 92 12/30/17 04:00 97.5 92 18 160/69 (99) 100 12/30/17 02:00 84 12/30/17 00:00 85 12/30/17 00:00 98.6 85 18 140/85 (103) 97 12/29/17 22:00 83 12/29/17 20:00 84 12/29/17 20:00 97.4 84 19 143/63 (89) 96 12/29/17 19:27 96 Nasal Cannula 2.00 1/31/18 18:21 79 12/29/17 18:01 82 12/29/17 18:00 82 12/29/17 17:21 81 18 146/60 (88) 96 12/29/17 17:01 82 22 144/67 (92) 81 12/29/17 16:40 81 20 133/63 (86) 94 12/29/17 16:21 83 23 141/67 (91) 94 12/29/17 16:21 83 12/29/17 16:15 81 12/29/17 16:00 82 19 137/64 (88) 96 12/29/17 16:00 82 12/29/17 14:01 79 12/29/17 14:00 80 (Jessica Clemons) -: 12/30/17 0455 12/30/17 0455 Microbiology 12/29/17 Aerobic Blood Culture - Preliminary, Resulted NO GROWTH IN 1 DAY 12/29/17 Anaerobic Blood Culture - Preliminary, Resulted NO GROWTH IN 1 DAY 12/29/17 Aerobic Blood Culture - Preliminary, Resulted NO GROWTH IN 1 DAY 12/29/17 Anaerobic Blood Culture - Preliminary, Resulted NO GROWTH IN 1 DAY Imaging Last Impressions Head CT 12/28/17 0807 Signed Impressions: Service Date/Time: Thursday, December 28, 2017 09:04 - CONCLUSION: No acute disease. No significant change has occurred. Héctor Carmona MD Chest X-Ray 12/28/17 0000 Signed Impressions: Service Date/Time: Thursday, December 28, 2017 09:34 - CONCLUSION: By basilar opacities primarily representing effusion stable on the left diminished radiographically on the right although very prominent on CT scan this same day Héctor Carmona MD Abdomen/Pelvis CT 12/28/17 0000 Signed Impressions: Service Date/Time: Thursday, December 28, 2017 09:07 - CONCLUSION: Stable abdomen. No evidence of free air and no evidence of obstruction. Large bilateral pleural effusions with ascites and anasarca. Diverticuli uncomplicated of the colon with diminished mural thickening of the colon suggesting improving colitis. Lim catheter in place in the urinary bladder. Héctor Carmona MD (Jessica Clemons) Physical Exam General Appearance: Well Nourished, No Acute Distress, Comfortable (Jessica Clemons) Eyes Eye Exam: Pupils Equal (Jessica Clemons) Pulmonary Resp Exam: Breath Sounds Equal, No Distress, Decreased Bases (Jessica Clemons) Cardiology CV Exam: Regular, Normal Sinus Rhythm (Jessica Clemons) Gastrointestinal/Abdomen GI Exam: Soft, Non-Tender, Bowel Sounds Present (Jessica Clemons) Genitourinary Exam: Flank Non-Tender (Jessica Clemons) Integumentary Skin Exam: Clear, Warm, Ulcer(s) (Jessica Clemons) Extremeties Extremities Exam: Pitting Edema (Jessica Clemons) Neurologic Neuro Exam: Alert, Awake (Jessica Clemons) Psychiatric Psych Exam: Appropriate Responses (Jessica Clemons) Assessment/Plan Discussed Condition With: Patient Assessment Summary: CKD Stage IV Problem List: (1) Renal insufficiency ICD Codes: N28.9 - Disorder of kidney and ureter, unspecified Plan: The patient has chronic kidney disease with proteinuria, most likely she has diabetic nephropathy Creatinine essentially unchanged at 2.4 today. Continues to have pitting edema Plan Monitor I+O continue lasix and metolazone. Avoid nephrotoxins Once the kidney function is stabilized and she can be started on RUSS inhibitor, if her potassium is not very high. (Jessica Clemons) Problem List: (1) Renal insufficiency ICD Codes: N28.9 - Disorder of kidney and ureter, unspecified Plan: The patient has chronic kidney disease with proteinuria, most likely she has diabetic nephropathy Creatinine essentially unchanged at 2.4 today. Continues to have pitting edema Plan Monitor I+O continue lasix and metolazone. Avoid nephrotoxins Once the kidney function is stabilized and she can be started on RUSS inhibitor, if her potassium is not very high. Patient seen, examined and agree with above. Increase Metolazone, as urine out put is still not adequate. BC growing Gram Positive, Staph. Coag. negative. On Vanco PO and Zosyn. (2) Leukocytosis ICD Codes: D72.829 - Elevated white blood cell count, unspecified Status: Acute (3) Hypertension ICD Codes: I10 - Essential (primary) hypertension Status: Chronic (4) Sepsis ICD Codes: A41.9 - Sepsis, unspecified organism Status: Acute (5) Anemia ICD Codes: D64.9 - Anemia, unspecified Status: Chronic (6) Stage 4 chronic kidney disease ICD Codes: N18.4 - Chronic kidney disease, stage 4 (severe) (Flavio Toro MD ) Problem Qualifiers (1) Hypertension: Qualified Codes: I10 - Essential (primary) hypertension Jessica Clemons Dec 30, 2017 13:06 Flavio Toro MD Dec 30, 2017 17:21
--- NOTE | 2017-12-30 13:06 | PD.CARD.PN ---
Subjective Subjective Remarks Feels better, no CP or SOB, blood cx positive for G+ cocci, C diff colitis Objective Medications Current Medications Medications (Trade) Dose Ordered Sig/Marie Route Start Time Stop Time Status Last Admin (NS Flush) 2 ml UNSCH PRN IV FLUSH 12/28/17 10:45 (NS Flush) 2 ml BID IV FLUSH 12/28/17 21:00 12/30/17 09:18 (Zofran Inj) 4 mg Q6H PRN IVP 12/28/17 10:45 (Narcan Inj) 0.4 mg UNSCH PRN IV PUSH 12/28/17 10:45 (Milk Of Magnesia Liq) 30 ml Q12H PRN PO 12/28/17 10:45 (Senokot) 17.2 mg Q12H PRN PO 12/28/17 10:45 (Dulcolax Supp) 10 mg DAILY PRN RECTAL 12/28/17 10:45 (Lactulose Liq) 30 ml DAILY PRN PO 12/28/17 10:45 (D50w (Vial) Inj) 50 ml UNSCH PRN IV PUSH 12/28/17 10:45 (Glucagon Inj) 1 mg STAT PRN IM 12/28/17 10:45 Pharmacy Profile Note 0 ml @ 0 mls/hr UNSCH OTHER 12/28/17 14:30 Piperacillin Sod/ Tazobactam Sod 50 ml @ 100 mls/hr Q6H IV 12/28/17 15:00 12/30/17 09:16 (Duoneb Neb) 1 ampule Q4HR NEB INH 12/28/17 16:00 12/30/17 11:30 (VANCOMYCIN for oral use only) 250 mg QID PO 12/28/17 18:00 12/29/17 21:18 (Lasix Inj) 40 mg BID@09,18 IV PUSH 12/28/17 18:00 12/30/17 09:17 (Aspirin Chew) 81 mg DAILY CHEW 12/29/17 09:00 12/30/17 09:18 (Lipitor) 40 mg HS PO 12/28/17 21:00 12/29/17 21:18 (Effient) 10 mg DAILY PO 12/29/17 09:00 12/30/17 09:17 (Heparin Inj) 5,000 units Q12HR SQ 12/28/17 21:00 12/30/17 09:20 (Harvey 5-325 Mg) 1 tab Q6H PRN PO 12/28/17 20:45 12/30/17 03:40 Miscellaneous Information Patient in critical care unit? Ass... [id number] .XX 12/28/17 23:30 12/28/17 23:30 (Chlorhexidine 2% Cloth) 3 pack DAILY@04 TOPICAL 12/29/17 04:00 01/02/18 04:01 12/30/17 03:30 (Chlorhexidine 2% Cloth) 3 pack UNSCH PRN TOPICAL 12/28/17 23:30 01/02/18 23:27 (Zaroxolyn) 2.5 mg BID PO 12/29/17 21:00 12/30/17 09:00 (Levemir Inj) 8 units Q12HR SQ 12/30/17 09:00 12/30/17 09:00 (NovoLOG SUPPLEMENTAL SCALE) 1 ACHS SLIDING SCALE SQ 12/30/17 08:00 Albumin Human 50 ml @ 60 mls/hr Q12H IV 12/29/17 23:00 12/30/17 10:56 (VANCOMYCIN for oral use only) 125 mg QID PO 12/30/17 06:00 12/30/17 09:19 Vancomycin HCl 1500 mg/Sodium Chloride 515 ml @ 250 mls/hr ONCE ONCE IV 12/30/17 11:00 12/30/17 13:03 12/30/17 10:57 Vital Signs / I&O Vital Signs Date Time Temp Pulse Resp B/P (MAP) Pulse Ox O2 Delivery O2 Flow Rate FiO2 12/30/17 11:32 97 2.00 12/30/17 06:00 86 12/30/17 04:00 92 12/30/17 04:00 97.5 92 18 160/69 (99) 100 12/30/17 02:00 84 12/30/17 00:00 85 12/30/17 00:00 98.6 85 18 140/85 (103) 97 12/29/17 22:00 83 12/29/17 20:00 84 12/29/17 20:00 97.4 84 19 143/63 (89) 96 12/29/17 19:27 96 Nasal Cannula 2.00 12/29/17 18:21 79 12/29/17 18:01 82 12/29/17 18:00 82 12/29/17 17:21 81 18 146/60 (88) 96 12/29/17 17:01 82 22 144/67 (92) 81 12/29/17 16:40 81 20 133/63 (86) 94 12/29/17 16:21 83 23 141/67 (91) 94 12/29/17 16:21 83 12/29/17 16:15 81 12/29/17 16:00 82 19 137/64 (88) 96 12/29/17 16:00 82 12/29/17 14:01 79 12/29/17 14:00 80 I/O 12/29/17 12/29/17 12/29/17 12/30/17 12/30/17 12/30/17 07:00 15:00 23:00 07:00 15:00 23:00 Intake Total 1550 ml 900 ml 120 ml Output Total 400 ml 200 ml 350 ml Balance 1150 ml 700 ml -230 ml Intake Oral 200 ml 900 ml 120 ml IV Total 1350 ml Output Urine Total 400 ml 200 ml 350 ml # Bowel Movements 1 Physical Exam GENERAL: In NAD. SKIN: Warm and dry. HEAD: Normocephalic. EYES: No scleral icterus. No injection or drainage. NECK: Supple, trachea midline. No JVD or lymphadenopathy. CARDIOVASCULAR: Regular rate and rhythm without murmurs, gallops, or rubs. RESPIRATORY: Breath sounds equal bilaterally. No accessory muscle use. GASTROINTESTINAL: Abdomen soft, non-tender, nondistended. MUSCULOSKELETAL: No cyanosis, bilat LE edema, R LE wound dressed Laboratory Laboratory Tests Test 12/30/17 04:55 White Blood Count 10.5 TH/MM3 Red Blood Count 3.01 MIL/MM3 Hemoglobin 9.0 GM/DL Hematocrit 26.6 % Mean Corpuscular Volume 88.4 FL Mean Corpuscular Hemoglobin 29.8 PG Mean Corpuscular Hemoglobin Concent 33.7 % Red Cell Distribution Width 16.6 % Platelet Count 254 TH/MM3 Mean Platelet Volume 7.8 FL Neutrophils (%) (Auto) 81.6 % Lymphocytes (%) (Auto) 10.4 % Monocytes (%) (Auto) 7.3 % Eosinophils (%) (Auto) 0.3 % Basophils (%) (Auto) 0.4 % Neutrophils # (Auto) 8.6 TH/MM3 Lymphocytes # (Auto) 1.1 TH/MM3 Monocytes # (Auto) 0.8 TH/MM3 Eosinophils # (Auto) 0.0 TH/MM3 Basophils # (Auto) 0.0 TH/MM3 CBC Comment DIFF FINAL Differential Comment Blood Urea Nitrogen 45 MG/DL Creatinine 2.14 MG/DL Random Glucose 138 MG/DL Albumin 1.8 GM/DL Calcium Level 8.7 MG/DL Phosphorus Level 4.2 MG/DL Magnesium Level 2.3 MG/DL Sodium Level 139 MEQ/L Potassium Level 4.9 MEQ/L Chloride Level 105 MEQ/L Carbon Dioxide Level 21.4 MEQ/L Anion Gap 13 MEQ/L Estimat Glomerular Filtration Rate 23 ML/MIN Random Vancomycin Level 16.3 COMMENT Assessment and Plan Problem List: (1) Bradycardia ICD Codes: R00.1 - Bradycardia, unspecified Status: Acute (2) Altered mental status ICD Codes: R41.82 - Altered mental status, unspecified Status: Acute (3) Hypoglycemia ICD Codes: E16.2 - Hypoglycemia, unspecified Status: Acute (4) CHF (congestive heart failure) ICD Codes: I50.9 - Heart failure, unspecified (5) Renal insufficiency ICD Codes: N28.9 - Disorder of kidney and ureter, unspecified (6) DM (diabetes mellitus) ICD Codes: E11.9 - Type 2 diabetes mellitus without complications Status: Chronic (7) CAD (coronary artery disease) ICD Codes: I25.10 - Atherosclerotic heart disease of augustine coronary artery without angina pectoris Status: Chronic (8) Chronic kidney disease, stage 4 (severe) ICD Codes: N18.4 - Chronic kidney disease, stage 4 (severe) Status: Chronic (9) Bacteremia ICD Codes: R78.81 - Bacteremia (10) Clostridium difficile colitis ICD Codes: A04.7 - Enterocolitis due to Clostridium difficile Status: Acute Assessment and Plan No CP or excessive dyspnea. Bradycardia resolved. CXR w bilat pleural effusions. She had drug eluting stent in Jun 2017; Effient and ASA cannot be stopped unless life threatening emergency occur for 1 year. High risk of stent thrombosis off meds. Cont and adjust diuresis. Nephrology eval and mgmt. ID eval for bacteremia. Tx for C diff colitis. Increase activity. PT. care services manager eval for placement once ready for discharge. Problem Qualifiers (1) Altered mental status: Qualified Codes: R40.0 - Somnolence (2) DM (diabetes mellitus): Qualified Codes: E11.628 - Type 2 diabetes mellitus with other skin complications; Z79.4 - snf (current) use of insulin (3) CAD (coronary artery disease): Qualified Codes: I25.10 - Atherosclerotic heart disease of augustine coronary artery without angina pectoris Dunia Reddy MD Dec 30, 2017 13:05
--- NOTE | 2017-12-30 13:56 | MB ---
cc: MARYURI FERNÁNDEZ MD DATE OF CONSULTATION: 12/30/[address] Koehler. REASON FOR CONSULTATION Bacteremia. HISTORY OF PRESENT ILLNESS This is a 67-year-old white female who was admitted to the hospital with altered mental status on December 28, 2017. The patient was brought to the emergency department via ambulance after she had developed mental status change at home. She was noted to have low blood sugar and she was noted to have episode of vomiting. The patient was also noted to have bradycardia with heart rate in the 40s when she was admitted and a core body temperature was 92 degrees. Her white blood cell count was normal. The patient was admitted to the hospital. Blood culture taken on 12/28 has gram-positive cocci in all four bottles. The patient has a nonhealing wound of the right tibia. She has been followed by wound care specialty for that. She has had multiple cultures positive from the tibia wound. The last time the culture was taken in May 2017, the culture showed Proteus, E-coli and MRSA. The patient is currently very awake and she is alert. She also has recently been treated for C-difficile colitis with Flagyl. She tells me that she finished the Flagyl approximately 10 days ago and she has had diarrhea however, since finishing the antibiotics. Stool C-difficile toxin was positive on November 09, 2017. Repeated C-difficile of the stools is positive from 12/28/2017. The patient denies chills or nausea currently. She denies cough or chest pain or shortness of breath. PAST MEDICAL HISTORY 1. COPD. 2. Hypertension. 3. Hyperlipidemia. 4. Diabetes mellitus. 5. Coronary artery disease. 6. Colitis. 7. Coronary stenting x3. 8. Hysterectomy. 9. Appendectomy. 10. Tonsillectomy. ALLERGIES PROPOXYPHENE. MEDICATIONS 1. Vancomycin. 2. Piperacillin/tazobactam. 3. Vancomycin p.o. 4. Levemir. 5. Zaroxolyn. 6. Aspirin. 7. Prasugrel. 8. Lipitor. 9. Corwith 5. 10. Lasix. SOCIAL HISTORY No tobacco, no alcohol. No illicit drugs. FAMILY HISTORY Noncontributory. REVIEW OF SYSTEMS CONSTITUTIONAL: No fever or chills. HEENT: Denies visual difficulties. Denies nosebleed. Denies soreness of the throat. Denies neck swelling. CARDIOVASCULAR: Denies palpitation or chest pain. RESPIRATORY: Denies cough or shortness of breath. GASTROINTESTINAL: Positive for vomiting and diarrhea. GENITOURINARY: Denies urgency, frequency or dysuria. HEMATOPOIETIC: Denies easy bruising or bleeding. MUSCULOSKELETAL: Denies muscle aches or pain. Chronic ulceration of the right tibia. ENDOCRINE: Denies polyuria, polydipsia. NEUROLOGIC: Denies problems with coordination. PSYCHIATRIC: Denies depression. PHYSICAL EXAMINATION GENERAL: This is a well-developed female who is in no acute distress. She is awake and alert and oriented. VITAL SIGNS: Temperature 97.5, BP 186/81, heart rate 91, respirations 16. HEENT: Head is atraumatic. Extraocular movements grossly intact, pupils reactive to light. No icterus. OROPHARYNX: The patient has several missing teeth at the lower jaw. No visible oral lesions. Mucosa is moist. NECK: Supple without adenopathy. LUNGS: Clear breath sounds bilateral. HEART: Regular rate and rhythm. No murmurs, rubs or gallops. ABDOMEN: Bowel sounds present, soft, no tenderness appreciated. RECTAL: Not performed. EXTREMITIES: The right tibia has ulceration at the inner aspect distally. This has dressing which has clear exudate underneath it. There is no erythema around the ulceration. The ulceration is approximately 6 cm long and approximately 3 cm wide. The extremities has 2+ pitting edema from the thigh down to the feet. SKIN: No diffuse rash. NEUROLOGIC: No gross focal findings. PSYCHIATRIC: The patient is calm and cooperative. LABORATORY DATA WBC 10.5, platelets 254, 81% neutrophils, hemoglobin 9.0, creatinine 2.14, BUN 45, sodium 139, estimated GFR 23, albumin 1.8. IMAGING STUDIES CT scan of the abdomen shows no evidence of free air and no evidence of obstruction. Large bilateral pleural effusions with ascites and anasarca is noted. Diminished mural thickening of the colon suggesting improving colitis. IMPRESSION 1. Bacteremia with gram-positive bacteria. Questionable etiology. Possibly arising from her right chronic tibial wound. 2. C-difficile colitis. 3. Nonhealing right tibial wound. RECOMMENDATIONS 1. Obtain a new culture from the tibia wound. 2. Continue vancomycin intravenous. 3. Continue piperacillin/tazobactam. 4. Continue vancomycin oral for C-difficile. 5. Monitor blood cultures including repeated blood culture. 6. Follow the clinical status. The patient's progress will be monitored and further recommendations will be given upon followup. Maryuri Fernández MD FD/MICHEAL /12:47 PM /1:08 PM
--- NOTE | 2017-12-30 14:56 | HHI.PR ---
Subjective Remarks Patient seen this morning around 9 AM. Says she is feeling better every day. Denies any chest pain or shortness of breath. Denies any nausea or vomiting.. Objective Vital Signs Date Time Temp Pulse Resp B/P (MAP) Pulse Ox O2 Delivery O2 Flow Rate FiO2 12/30/17 11:32 97 2.00 12/30/17 10:00 90 12/30/17 08:00 98.4 89 21 160/70 (100) 100 12/30/17 08:00 89 12/30/17 06:00 86 12/30/17 04:00 92 12/30/17 04:00 97.5 92 18 160/69 (99) 100 12/30/17 02:00 84 12/30/17 00:00 85 12/30/17 00:00 98.6 85 18 140/85 (103) 97 12/29/17 22:00 83 12/29/17 20:00 84 12/29/17 20:00 97.4 84 19 143/63 (89) 96 12/29/17 19:27 96 Nasal Cannula 2.00 12/29/17 18:21 79 12/29/17 18:01 82 12/29/17 18:00 82 12/29/17 17:21 81 18 146/60 (88) 96 12/29/17 17:01 82 22 144/67 (92) 81 12/29/17 16:40 81 20 133/63 (86) 94 12/29/17 16:21 83 23 141/67 (91) 94 12/29/17 16:21 83 12/29/17 16:15 81 12/29/17 16:00 82 19 137/64 (88) 96 12/29/17 16:00 82 I/O 12/29/17 12/29/17 12/29/17 12/30/17 12/30/17 12/30/17 07:00 15:00 23:00 07:00 15:00 23:00 Intake Total 1550 ml 900 ml 120 ml Output Total 400 ml 200 ml 350 ml Balance 1150 ml 700 ml -230 ml Intake Oral 200 ml 900 ml 120 ml IV Total 1350 ml Output Urine Total 400 ml 200 ml 350 ml # Bowel Movements 1 Result Diagram: 12/30/17 0455 12/30/17 0455 Objective Remarks GENERAL: patient sitting up in bed. Appears comfortable.alert and oriented 3. No change on exam. SKIN: Warm and dry. HEAD: Normocephalic. EYES: No scleral icterus. No injection or drainage. NECK: Supple, trachea midline. No JVD. CARDIOVASCULAR: Regular rate and rhythm without murmurs, gallops, or rubs. RESPIRATORY: Breath sounds equal bilaterally. No accessory muscle use. GASTROINTESTINAL: Abdomen soft, non-tender, nondistended. MUSCULOSKELETAL: No cyanosis. anasarca. Dependent edema. No erythema. Right leg wound dressed with dressing clean and dry and intact. BACK: Nontender without obvious deformity. No CVA tenderness. A/P Assessment and Plan //Suspicion for sepsis //Gram-positive bacteremia = With hypothermia, hypoglycemia. Right leg wound. -Lactate within normal limits. CT with no acute abdominal findings, however marketed bilateral pleural effusions. Right leg wound, elevated ESR in the 40s. = We'll place on broad-spectrum antibiotics. Consult wound care for right leg wound. Follow-up cultures. = 12/29. One out of 4 blood cultures from admission with gram-positive bacilli. Repeat blood cultures. Order echocardiogram. Consult infectious disease. Follow cultures. = 12/30. 4-4 blood cultures for admission with gram-positive cocci. Continue vancomycin. ID following. Appreciate assistance follow-up repeat cultures. //Hypothermia //Elevated TSH 10 on admission = Hypothermia improved with bear hugger. Continue Pricilla hugger as needed. Cortisol level within suspected range. Order IV hydrocortisone. = Hypothermia much improved. TSH within normal limits. Not myxedema coma. Patient likely overdose on insulin accidentally due to poor by mouth intake on the day of admission. Would expect elevated TSH during moment's of stress. //Severe malnutrition. Patient tolerating diet. Encourage with Griffith supplements. = Continue scheduled IV albumin. Encourage by mouth intake. //DM //With hypoglycemia on admission = Glucose Improved after D50. We'll continue to monitor closely in the ICU. We 'll hold home medications, except for low dose no blocks sliding scale. = 12/29. Hyperglycemia in the 300s. Will change insulin sliding scale. = 12/30. Blood sugars improved. Continue to monitor. //CHF exacerbation = BNP 1000. Bilateral lower extremity edema. Bilateral pleural effusions. We' ll order IV Lasix. Checked monitoring of intake and output. Appreciate nursing assistance. = Continue IV furosemide. Start on albumin. Encourage nutrition. = Renal function relatively stable. Continue Lasix. //Bilateral pleural effusions Cardiology cannot clear patient to hold Effient due to recent drug-eluting stent. Expect these are secondary to CHF. Will continue to follow. //CK D. = Creatinine 2.1, around baseline. Nephrology following. Appreciate assistance = 12/30. Creatinine stable 2.1. Continue to monitor. Nephrology following. Appreciate assistance.. //CAD. //Hypertension = Cardiology following. Appreciate assistance. Continue Effient and aspirin. //Marijuana abuse. Cessation counseling provided. //COPD. Not appear to be in acute exacerbation. Nebs as needed. //Recent C. difficile. = Positive C. difficile. Continue by mouth vancomycin. //Anemia. Hemoglobin 10 on admission. 9.0 on 12/30. This is likely secondary to intravascular volume expansion secondary to IV albumin. No signs of bleeding. Continue to monitor. //Right leg wound. Poorly healing. Follows with care. Consult wound care here. = Appreciate wound care assistance. //Prophylaxis. heparin Discharge Planning physical therapy following. = Patient will likely need SNF. not doing well at home. Appreciate case management assistance. Timi Koehler MD Dec 30, 2017 14:56
[2017-12-30] MEDS ORDERED: NIFEdipine 30 MG SUSTAINED RELEASE TAB PO ONE (16:30)
[2017-12-30] MEDS ORDERED: ISOSORBIDE MONONITRATE 60 MG CR TAB (IMDUR) PO ONE (16:30)
[2017-12-30] MEDS: cloNIDine HCL 0.1 MG TAB PO PRN (18:37)
[2017-12-30] MEDS: ATORVASTATIN 40 MG TAB PO SCH (20:49)
[2017-12-31] VITALS (11 sets, daily range): BP systolic 151–176; BP diastolic 68–84; PULSE 72–86; RESP 16–17; TEMP 97.6–98.4; O2SAT 96–98
[2017-12-31] MEDS: PIPERACIL-TAZO 3.375 GM PREMIX 50 ML IV SCH ×3 (02:22→13:19)
[2017-12-31] MEDS: RESP: ALBUTEROL 2.5 MG/IPRATROPIUM 0.5 MG NEB (SCH) INH ×4 (02:45→15:38)
[2017-12-31] MEDS: CHLORHEXIDINE GLUCONATE 2 % 1 PACK (2 CLOTHS)(taper/protocol) TOPICAL SCH ×2 (04:00→22:28)
[2017-12-31] MEDS: ISOSORBIDE MONONITRATE 60 MG CR TAB (IMDUR) PO SCH (06:44)
[2017-12-31] MEDS: INSULIN ASPART SUPPLEMENTAL SCALE SQ SCH ×4 (08:00→21:00)
[2017-12-31] MEDS: SODIUM CHLORIDE 0.9% FLUSH 10 ML FLUSH IV FLUSH SCH ×2 (09:00→21:11)
[2017-12-31] MEDS: METOLAZONE 2.5 MG TAB PO SCH ×2 (09:00→21:00)
[2017-12-31] MEDS: INSULIN DETEMIR 100 UNITS/ML VIAL SQ SCH ×2 (09:00→21:12)
[2017-12-31] MEDS: VANCOMYCIN 500 MG VIAL (FOR ORAL USE ONLY) PO SCH ×8 (09:00→21:11)
[2017-12-31 09:28] LABS: AUTOMATED NEUTROPHIL # 3.4 TH/MM3 (1.8-7.7); BASOPHIL % 0.8 % (0.0-2.0); EOSINOPHIL # 0.2 TH/MM3 (0-0.4); EOSINOPHIL % 4.6 % (0.0-4.0); HEMATOCRIT 23.8 % (35.0-46.0); HEMOGLOBIN 8.1 GM/DL (11.6-15.3); LYMPH % 22.1 % (9.0-44.0); LYMPHOCYTE # 1.2 TH/MM3 (1.0-4.8); MEAN CELL VOLUME 88.3 FL (80.0-100.0); MEAN CORPUSCULAR HGB CONC 33.9 % (32.0-36.0); MEAN PLATELET VOLUME 7.6 FL (7.0-11.0); MONO % 9.2 % (0.0-8.0); MONOCYTE # 0.5 TH/MM3 (0-0.9); NEUT % 63.3 % (16.0-70.0); PLATELET COUNT 228 TH/MM3 (150-450); RED CELL DISTRIBUTION WIDTH 16.4 % (11.6-17.2); WHITE BLOOD COUNT 5.3 TH/MM3 (4.0-11.0)
[2017-12-31] MEDS: PRASUGREL 10 MG TAB PO SCH (09:54)
[2017-12-31] MEDS: cloNIDine HCL 0.1 MG TAB PO PRN (09:54)
[2017-12-31] MEDS: ACETAMINOPHEN/HYDROcodone 325 MG/5 MG TAB PO PRN (09:54)
[2017-12-31] MEDS: HEPARIN SODIUM - SQ 10,000 UNITS/ML VIAL SQ SCH ×2 (09:55→21:12)
[2017-12-31] MEDS: FUROSEMIDE 40 MG/4 ML VIAL IV PUSH SCH ×2 (09:56→17:50)
[2017-12-31] MEDS: ASPIRIN 81 MG CHEW TAB CHEW SCH (09:56)
[2017-12-31 10:13] LABS: ALBUMIN 1.6 GM/DL (3.4-5.0); BICARBONATE 23.8 MEQ/L (21.0-32.0); CALCIUM 8.9 MG/DL (8.5-10.1); CREATININE 2.42 MG/DL (0.50-1.00); MAGNESIUM 2.3 MG/DL (1.5-2.5)
[2017-12-31 10:15] LABS: PHOSPHORUS 3.9 MG/DL (2.5-4.9)
[2017-12-31] MEDS ORDERED: NIFEdipine 60 MG SUSTAINED RELEASE TAB PO ONE (11:00)
[2017-12-31] MEDS: CARVEDILOL 6.25 MG TAB PO SCH ×2 (12:00→21:11)
--- NOTE | 2017-12-31 12:23 | HHI.NPPN ---
Subjective History of Present Illness This is a 67-year-old female known to me from before, has been following with me in the office with past medical history of hypertension, ischemic heart disease, congestive heart failure, diabetes mellitus, chronic obstructive pulmonary disease, chronic anemia, hyperlipidemia, chronic kidney disease, came to the hospital with low blood sugar. I was called to see the patient because of elevated BUN and creatinine. The patient has known history of chronic kidney disease. Her baseline creatinine is around 1.6-1.8. She came in with creatinine of 1.6 and it has gone up to 2.0 and 2.1. The patient was hypotensive on admission and also she has bradycardia and she was hypothermic. She is much better now, her sugar has gone up after given the D50 and she is currently sitting in the chair with nasal cannula. She has mild shortness of breath. According to her the swelling in the leg has been improving but she still has a lot of edema in the legs. She denies any headache or dizziness at present. No chest pain. She has mild cough which is mainly dry. No history of dysuria, hematuria, difficulty passing urine. Additional Remarks Patient in good spirits. Reports mild SOB. Edema is improving. UOP improving. (Jessica Clemons) Review of Systems Respiratory Respiratory Remarks Mild SOB (Jessica Clemons) Cardiovascular Cardiac Remarks Denies CP (Jessica Clemons) Gastrointestinal Gastrointestinal: Diarrhea (Jessica Clemons) Objective Data Data Vital Signs Date Time Temp Pulse Resp B/P (MAP) Pulse Ox O2 Delivery O2 Flow Rate FiO2 12/31/17 09:16 98 Nasal Cannula 2.00 12/31/17 06:00 82 12/31/17 04:00 84 12/31/17 04:00 98.0 84 17 151/68 (95) 97 12/31/17 02:00 78 12/31/17 00:00 97.6 86 16 151/80 (103) 96 12/31/17 00:00 86 12/30/17 22:00 97 12/30/17 20:00 97.3 104 14 165/70 (101) 96 12/30/17 20:00 104 12/30/17 18:00 99 12/30/17 16:00 98.0 99 18 196/86 (122) 100 12/30/17 16:00 92 12/30/17 14:00 86 (Jessica Clemons) -: 12/31/17 0909 12/31/17 0909 Microbiology 12/30/17 Gram Stain - Final, Resulted 12/30/17 Wound Culture, Resulted Pending Imaging Last Impressions Head CT 12/28/17 0807 Signed Impressions: Service Date/Time: Thursday, December 28, 2017 09:04 - CONCLUSION: No acute disease. No significant change has occurred. Héctor Carmona MD Chest X-Ray 12/28/17 0000 Signed Impressions: Service Date/Time: Thursday, December 28, 2017 09:34 - CONCLUSION: By basilar opacities primarily representing effusion stable on the left diminished radiographically on the right although very prominent on CT scan this same day Héctor Carmona MD Abdomen/Pelvis CT 12/28/17 0000 Signed Impressions: Service Date/Time: Thursday, December 28, 2017 09:07 - CONCLUSION: Stable abdomen. No evidence of free air and no evidence of obstruction. Large bilateral pleural effusions with ascites and anasarca. Diverticuli uncomplicated of the colon with diminished mural thickening of the colon suggesting improving colitis. Lim catheter in place in the urinary bladder. Héctor Carmona MD (Jessica Clemons) Physical Exam General Appearance: Well Nourished, No Acute Distress, Comfortable (Jessica Clemons) Eyes Eye Exam: Pupils Equal (Jessica Clemons) Pulmonary Resp Exam: Breath Sounds Equal, No Distress, Decreased Bases (Jessica Clemons) Cardiology CV Exam: Regular, Normal Sinus Rhythm (Jessica Clemons) Gastrointestinal/Abdomen GI Exam: Soft, Non-Tender, Bowel Sounds Present (Jessica Clemons) Genitourinary Exam: Flank Non-Tender (Jessica Clemons) Integumentary Skin Exam: Clear, Warm, Ulcer(s) (Jessica Clemons) Extremeties Extremities Exam: Pitting Edema (Jessica Clemons) Neurologic Neuro Exam: Alert, Awake (Jessica Clemons) Psychiatric Psych Exam: Appropriate Responses (Jessica Clemons) Assessment/Plan Discussed Condition With: Patient Assessment Summary: CKD Stage IV Problem List: (1) Renal insufficiency ICD Codes: N28.9 - Disorder of kidney and ureter, unspecified Plan: The patient has chronic kidney disease with proteinuria, most likely she has diabetic nephropathy Creatinine slightly increased at 2.4 today. Continues to have pitting edema but improving with addition on metolazone BC growing Gram Positive, Staph. Coag. negative. On Vanco PO and Zosyn. UOP has improved and edema is improving. Plan Monitor I+O continue lasix and metolazone. Avoid nephrotoxins Once the kidney function is stabilized and she can be started on RUSS inhibitor, if her potassium is not very high. (2) Leukocytosis ICD Codes: D72.829 - Elevated white blood cell count, unspecified Status: Acute (3) Hypertension ICD Codes: I10 - Essential (primary) hypertension Status: Chronic (4) Sepsis ICD Codes: A41.9 - Sepsis, unspecified organism Status: Acute (5) Anemia ICD Codes: D64.9 - Anemia, unspecified Status: Chronic (6) Stage 4 chronic kidney disease ICD Codes: N18.4 - Chronic kidney disease, stage 4 (severe) (Jessica Clemons) Problem List: (1) Renal insufficiency ICD Codes: N28.9 - Disorder of kidney and ureter, unspecified Plan: The patient has chronic kidney disease with proteinuria, most likely she has diabetic nephropathy Creatinine slightly increased at 2.4 today. Continues to have pitting edema but improving with addition on metolazone BC growing Gram Positive, Staph. Coag. negative. On Vanco PO and Zosyn. UOP has improved and edema is improving. Plan Monitor I+O continue Lasix and metolazone. Avoid nephrotoxins Once the kidney function is stabilized and she can be started on RUSS inhibitor, if her potassium is normal. BP is elevated, started on Nifedipine and Coreg, to follow the BP. (2) Leukocytosis ICD Codes: D72.829 - Elevated white blood cell count, unspecified Status: Acute (3) Hypertension ICD Codes: I10 - Essential (primary) hypertension Status: Chronic (4) Sepsis ICD Codes: A41.9 - Sepsis, unspecified organism Status: Acute (5) Anemia ICD Codes: D64.9 - Anemia, unspecified Status: Chronic (6) Stage 4 chronic kidney disease ICD Codes: N18.4 - Chronic kidney disease, stage 4 (severe) (Flavio Toro MD ) Problem Qualifiers (1) Hypertension: Qualified Codes: I10 - Essential (primary) hypertension Jessica Clemons Dec 31, 2017 12:23 Flavio Toro MD Dec 31, 2017 13:08
--- NOTE | 2017-12-31 13:31 | HHI.IDPN ---
Note Infectious Disease Note Patient feels okay. Had increased BP earlier. No complaints. 4 blood culture bottles positive with staph coag neg. Patient was admitted to the hospital with altered mental status on December 28, 2017. Blood culture taken on 12/28 has gram-positive cocci in all four bottles. The patient has a nonhealing wound of the right tibia. Consult requested for bacteremia. PAST MEDICAL HISTORY 1. COPD. 2. Hypertension. 3. Hyperlipidemia. 4. Diabetes mellitus. 5. Coronary artery disease. 6. Colitis. 7. Coronary stenting x3. 8. Hysterectomy. 9. Appendectomy. 10. Tonsillectomy. ALLERGIES PROPOXYPHENE. MEDICATIONS 1. Vancomycin. 2. Piperacillin/tazobactam. 3. Vancomycin p.o. OBJECTIVE: Vital Signs Date Time Temp Pulse Resp B/P (MAP) Pulse Ox O2 Delivery O2 Flow Rate FiO2 12/31/17 09:16 98 Nasal Cannula 2.00 12/31/17 06:00 82 12/31/17 04:00 84 12/31/17 04:00 98.0 84 17 151/68 (95) 97 12/31/17 02:00 78 12/31/17 00:00 97.6 86 16 151/80 (103) 96 12/31/17 00:00 86 12/30/17 22:00 97 12/30/17 20:00 97.3 104 14 165/70 (101) 96 12/30/17 20:00 104 12/30/17 18:00 99 12/30/17 16:00 98.0 99 18 196/86 (122) 100 12/30/17 16:00 92 12/30/17 14:00 86 Laboratory Tests Test 12/30/17 04:55 12/31/17 09:09 White Blood Count 10.5 TH/MM3 5.3 TH/MM3 Red Blood Count 3.01 MIL/MM3 2.70 MIL/MM3 Hemoglobin 9.0 GM/DL 8.1 GM/DL Hematocrit 26.6 % 23.8 % Mean Corpuscular Volume 88.4 FL 88.3 FL Mean Corpuscular Hemoglobin 29.8 PG 30.0 PG Mean Corpuscular Hemoglobin Concent 33.7 % 33.9 % Red Cell Distribution Width 16.6 % 16.4 % Platelet Count 254 TH/MM3 228 TH/MM3 Mean Platelet Volume 7.8 FL 7.6 FL Neutrophils (%) (Auto) 81.6 % 63.3 % Lymphocytes (%) (Auto) 10.4 % 22.1 % Monocytes (%) (Auto) 7.3 % 9.2 % Eosinophils (%) (Auto) 0.3 % 4.6 % Basophils (%) (Auto) 0.4 % 0.8 % Neutrophils # (Auto) 8.6 TH/MM3 3.4 TH/MM3 Lymphocytes # (Auto) 1.1 TH/MM3 1.2 TH/MM3 Monocytes # (Auto) 0.8 TH/MM3 0.5 TH/MM3 Eosinophils # (Auto) 0.0 TH/MM3 0.2 TH/MM3 Basophils # (Auto) 0.0 TH/MM3 0.0 TH/MM3 CBC Comment DIFF FINAL DIFF FINAL Differential Comment Laboratory Tests Test 12/30/17 04:55 12/31/17 09:09 Blood Urea Nitrogen 45 MG/DL 43 MG/DL Creatinine 2.14 MG/DL 2.42 MG/DL Random Glucose 138 MG/DL 55 MG/DL Albumin 1.8 GM/DL 1.6 GM/DL Calcium Level 8.7 MG/DL 8.9 MG/DL Phosphorus Level 4.2 MG/DL 3.9 MG/DL Magnesium Level 2.3 MG/DL 2.3 MG/DL Sodium Level 139 MEQ/L 139 MEQ/L Potassium Level 4.9 MEQ/L 5.0 MEQ/L Chloride Level 105 MEQ/L 106 MEQ/L Carbon Dioxide Level 21.4 MEQ/L 23.8 MEQ/L Anion Gap 13 MEQ/L 9 MEQ/L Estimat Glomerular Filtration Rate 23 ML/MIN 20 ML/MIN Microbiology Date/Time Source Procedure Growth Status 12/29/17 20:53 Blood Peripheral Aerobic Blood Culture - Preliminary NO GROWTH IN 2 DAYS Resulted 12/29/17 20:53 Blood Peripheral Anaerobic Blood Culture - Preliminary NO GROWTH IN 2 DAYS Resulted 12/29/17 20:50 Blood Peripheral Aerobic Blood Culture - Preliminary NO GROWTH IN 2 DAYS Resulted 12/29/17 20:50 Blood Peripheral Anaerobic Blood Culture - Preliminary NO GROWTH IN 2 DAYS Resulted 12/30/17 14:00 Wound Leg Gram Stain - Final Resulted 12/30/17 14:00 Wound Leg Wound Culture Pending Resulted Imaging: Head CT 12/28/17 0807 Signed Impressions: Service Date/Time: Thursday, December 28, 2017 09:04 - CONCLUSION: No acute disease. No significant change has occurred. Héctor Carmona MD Chest X-Ray 12/28/17 0000 Signed Impressions: Service Date/Time: Thursday, December 28, 2017 09:34 - CONCLUSION: By basilar opacities primarily representing effusion stable on the left diminished radiographically on the right although very prominent on CT scan this same day Héctor Carmona MD Abdomen/Pelvis CT 12/28/17 0000 Signed Impressions: Service Date/Time: Thursday, December 28, 2017 09:07 - CONCLUSION: Stable abdomen. No evidence of free air and no evidence of obstruction. Large bilateral pleural effusions with ascites and anasarca. Diverticuli uncomplicated of the colon with diminished mural thickening of the colon suggesting improving colitis. Lim catheter in place in the urinary bladder. Héctor Carmona MD PHYSICAL EXAMINATION GENERAL: No acute distress. She is awake and alert and oriented. HEENT: Head is atraumatic. Extraocular movements grossly intact, pupils reactive to light. No icterus. OROPHARYNX: Fair dentition. No visible oral lesions. Mucosa is moist. NECK: Supple without adenopathy. LUNGS: Clear breath sounds bilateral. HEART: Regular rate and rhythm. No murmurs, rubs or gallops. ABDOMEN: Bowel sounds present, soft, no tenderness appreciated. EXTREMITIES: The right tibia has ulceration at the inner aspect distally approximately 6 cm long and approximately 3 cm wide. The extremities has 2+ pitting edema from the thigh down to the feet. SKIN: No diffuse rash. NEUROLOGIC: No gross focal findings. PSYCHIATRIC: Pleasant calm and cooperative. IMPRESSION 1. Bacteremia with gram-positive bacteria. Staph epi, Questionable etiology. 2. C-difficile colitis. 3. Nonhealing right tibial wound. RECOMMENDATIONS 1. Follow culture from the tibia wound. 2. Continue vancomycin intravenous. 3. Stop piperacillin/tazobactam. 4. Continue vancomycin oral for C-difficile. 5. Monitor blood cultures. 6. Follow the clinical status. Asa Hooks MD Dec 31, 2017 13:31
--- NOTE | 2017-12-31 14:27 | HHI.PR ---
Subjective Remarks Patient seen this morning around 10 AM. Says she is feeling all right. As any chest pain or shortness of breath. No bleeding. And output improving. Objective Vital Signs Date Time Temp Pulse Resp B/P (MAP) Pulse Ox O2 Delivery O2 Flow Rate FiO2 12/31/17 09:16 98 Nasal Cannula 2.00 12/31/17 06:00 82 12/31/17 04:00 84 12/31/17 04:00 98.0 84 17 151/68 (95) 97 12/31/17 02:00 78 12/31/17 00:00 97.6 86 16 151/80 (103) 96 12/31/17 00:00 86 12/30/17 22:00 97 12/30/17 20:00 97.3 104 14 165/70 (101) 96 12/30/17 20:00 104 12/30/17 18:00 99 12/30/17 16:00 98.0 99 18 196/86 (122) 100 12/30/17 16:00 92 I/O 12/30/17 12/30/17 12/30/17 12/31/17 12/31/17 12/31/17 07:00 15:00 23:00 07:00 15:00 23:00 Intake Total 120 ml 1165 ml 290 ml Output Total 350 ml 1050 ml 1200 ml Balance -230 ml 115 ml -910 ml Intake Oral 120 ml 500 ml 240 ml IV Total 665 ml 50 ml Output Urine Total 350 ml 1050 ml 1200 ml # Bowel Movements 1 2 1 Result Diagram: 12/31/1709 12/31/17 0909 Objective Remarks GENERAL: patient sitting up in bed. Appears comfortable.alert and oriented 3. again No change on exam. SKIN: Warm and dry. HEAD: Normocephalic. EYES: No scleral icterus. No injection or drainage. NECK: Supple, trachea midline. No JVD. CARDIOVASCULAR: Regular rate and rhythm without murmurs, gallops, or rubs. RESPIRATORY: Breath sounds equal bilaterally. No accessory muscle use. GASTROINTESTINAL: Abdomen soft, non-tender, nondistended. MUSCULOSKELETAL: No cyanosis. anasarca. Dependent edema. No erythema. Right leg wound dressed with dressing clean and dry and intact. BACK: Nontender without obvious deformity. No CVA tenderness. A/P Assessment and Plan ========2/2 Accelerated hypertension. Blood pressure elevated to 200 systolic. Discontinued scheduled albumin. Medications adjusted. 4/4 cultures with MRSE. Continue vancomycin. Appreciate ID assistance. CHF exacerbation improving. CK D. Creatinine 2.4. Worsened. Continue to monitor. Nephrology following. Appreciate assistance. Anemia. Hemoglobin 8.1, down from admission. All cell lines down. Likely dilutional. // sepsis //Gram-positive bacteremia MRSE = With hypothermia, hypoglycemia. Right leg wound. -Lactate within normal limits. CT with no acute abdominal findings, however marketed bilateral pleural effusions. Right leg wound, elevated ESR in the 40s. = We'll place on broad-spectrum antibiotics. Consult wound care for right leg wound. Follow-up cultures. = 12/29. One out of 4 blood cultures from admission with gram-positive bacilli. Repeat blood cultures. Order echocardiogram. Consult infectious disease. Follow cultures. = 12/30. 4-4 blood cultures for admission with gram-positive cocci. Continue vancomycin. ID following. Appreciate assistance follow-up repeat cultures. =4/4 cultures with MRSE. Continue vancomycin. Appreciate ID assistance. //Hypothermia //Elevated TSH 10 on admission = Hypothermia improved with bear hugger. Continue Pricilla hugger as needed. Cortisol level within suspected range. Order IV hydrocortisone. = Hypothermia much improved. TSH within normal limits. Not myxedema coma. Patient likely overdose on insulin accidentally due to poor by mouth intake on the day of admission. Would expect elevated TSH during moment's of stress. //Severe malnutrition. Patient tolerating diet. Encourage with Griffith supplements. = Continue scheduled IV albumin. Encourage by mouth intake. = Discontinued scheduled albumin. //DM //With hypoglycemia on admission = Glucose Improved after D50. We'll continue to monitor closely in the ICU. We 'll hold home medications, except for low dose no blocks sliding scale. = 12/29. Hyperglycemia in the 300s. Will change insulin sliding scale. = 12/30. Blood sugars improved. Continue to monitor. //CHF exacerbation = BNP 1000. Bilateral lower extremity edema. Bilateral pleural effusions. We' ll order IV Lasix. Checked monitoring of intake and output. Appreciate nursing assistance. = Continue IV furosemide. Start on albumin. Encourage nutrition. = Renal function relatively stable. Continue Lasix. //Bilateral pleural effusions Cardiology cannot clear patient to hold Effient due to recent drug-eluting stent. Expect these are secondary to CHF. Will continue to follow. //CK D. = Creatinine 2.1, around baseline. Nephrology following. Appreciate assistance = 12/30. Creatinine stable 2.1. Continue to monitor. Nephrology following. Appreciate assistance.. =12/31 Creatinine 2.4. Worsened. Continue to monitor. Nephrology following. Appreciate assistance. //CAD. //Hypertension = Cardiology following. Appreciate assistance. Continue Effient and aspirin. =12/31 Accelerated hypertension. Blood pressure elevated to 200 systolic. Discontinued scheduled albumin. Medications adjusted. //Marijuana abuse. Cessation counseling provided. //COPD. Not appear to be in acute exacerbation. Nebs as needed. //Recent C. difficile. = Positive C. difficile. Continue by mouth vancomycin. //Anemia. Hemoglobin 10 on admission. 9.0 on 12/30. This is likely secondary to intravascular volume expansion secondary to IV albumin. No signs of bleeding. Continue to monitor. =Hemoglobin 8.1, down from admission. All cell lines down. Likely dilutional. //Right leg wound. Poorly healing. Follows with care. Consult wound care here. = Appreciate wound care assistance. //Prophylaxis. heparin Discharge Planning Cont inpt tx for now physical therapy following. = Patient will likely need SNF. not doing well at home. Appreciate case management assistance. Timi Koehler MD Dec 31, 2017 14:27
[2017-12-31 17:58] LABS: IRON (FE) 60 MCG/DL (50-170); TOTAL IRON BINDING CAPACITY 167 MCG/DL (250-450)
[2017-12-31 18:01] LABS: FERRITIN 420 NG/ML (8-252)
[2017-12-31] MEDS ORDERED: hydrALAZINE HCL 50 MG TAB PO ONE (18:30)
[2017-12-31] MEDS ORDERED: SPIRONOLACTONE 25 MG TAB PO ONE (18:30)
[2017-12-31] MEDS ORDERED: MINOXIDIL 2.5 MG TAB PO ONE (18:30)
[2017-12-31] MEDS ORDERED: PILL SPLITTER OTHER PRN (18:45)
[2017-12-31] MEDS ORDERED: NIFEdipine 60 MG SUSTAINED RELEASE TAB PO SCH (21:00)
[2017-12-31] MEDS: ATORVASTATIN 40 MG TAB PO SCH (21:11)
[2017-12-31] MEDS: hydrALAZINE HCL 50 MG TAB PO SCH (22:34)
[2018-01-01] VITALS (19 sets, daily range): BP systolic 125–162; BP diastolic 60–78; PULSE 56–78; RESP 13–21; TEMP 97.5–98.5; O2SAT 92–99
[2018-01-01] MEDS: DEXTROSE 50% IN WATER 50 ML VIAL(D50) IV PUSH PRN ×3 (05:16→08:38)
[2018-01-01] MEDS: hydrALAZINE HCL 50 MG TAB PO SCH ×3 (06:00→21:17)
[2018-01-01 06:11] LABS: AUTOMATED NEUTROPHIL # 2.6 TH/MM3 (1.8-7.7); BASOPHIL % 0.9 % (0.0-2.0); EOSINOPHIL # 0.3 TH/MM3 (0-0.4); HEMATOCRIT 24.2 % (35.0-46.0); HEMOGLOBIN 8.1 GM/DL (11.6-15.3); LYMPH % 26.4 % (9.0-44.0); LYMPHOCYTE # 1.2 TH/MM3 (1.0-4.8); MEAN CELL VOLUME 87.6 FL (80.0-100.0); MEAN CORPUSCULAR HEMOGLOBIN 29.2 PG (27.0-34.0); MEAN CORPUSCULAR HGB CONC 33.3 % (32.0-36.0); MEAN PLATELET VOLUME 8.1 FL (7.0-11.0); MONO % 9.6 % (0.0-8.0); MONOCYTE # 0.4 TH/MM3 (0-0.9); NEUT % 56.1 % (16.0-70.0); PLATELET COUNT 222 TH/MM3 (150-450); RED BLOOD COUNT 2.76 MIL/MM3 (4.00-5.30); RED CELL DISTRIBUTION WIDTH 16.3 % (11.6-17.2); WHITE BLOOD COUNT 4.6 TH/MM3 (4.0-11.0)
[2018-01-01 06:15] LABS: ALBUMIN 1.5 GM/DL (3.4-5.0); BICARBONATE 25.2 MEQ/L (21.0-32.0); CALCIUM 8.3 MG/DL (8.5-10.1); CREATININE 2.47 MG/DL (0.50-1.00); MAGNESIUM 2.2 MG/DL (1.5-2.5); PHOSPHORUS 3.9 MG/DL (2.5-4.9); RANDOM VANCOMYCIN 23.1 COMMENT
[2018-01-01] MEDS: ISOSORBIDE MONONITRATE 60 MG CR TAB (IMDUR) PO SCH (06:54)
[2018-01-01] MEDS: INSULIN ASPART SUPPLEMENTAL SCALE SQ SCH ×4 (08:00→21:00)
[2018-01-01] MEDS: HEPARIN SODIUM - SQ 10,000 UNITS/ML VIAL SQ SCH ×2 (08:26→21:16)
[2018-01-01] MEDS: VANCOMYCIN 500 MG VIAL (FOR ORAL USE ONLY) PO SCH ×4 (08:29→21:15)
[2018-01-01] MEDS: SODIUM CHLORIDE 0.9% FLUSH 10 ML FLUSH IV FLUSH SCH ×2 (08:32→21:00)
[2018-01-01] MEDS: ASPIRIN 81 MG CHEW TAB CHEW SCH (08:32)
[2018-01-01] MEDS: METOLAZONE 2.5 MG TAB PO SCH ×2 (08:33→21:00)
[2018-01-01] MEDS ORDERED: MINOXIDIL 2.5 MG TAB PO SCH (09:00)
[2018-01-01] MEDS ORDERED: SPIRONOLACTONE 25 MG TAB PO SCH (09:00)
[2018-01-01] MEDS: PRASUGREL 10 MG TAB PO SCH (12:12)
[2018-01-01] MEDS: ACETAMINOPHEN/HYDROcodone 325 MG/5 MG TAB PO PRN (16:08)
--- NOTE | 2018-01-01 16:58 | HHI.PR ---
Subjective Remarks Patient seen this morning. She reports dizziness, with room spinning which is causing her episodes of nausea.. This is worse with moving her head to the right. denies any ear pain. mary was successful Objective Vital Signs Date Time Temp Pulse Resp B/P (MAP) Pulse Ox O2 Delivery O2 Flow Rate FiO2 01/01/18 06:00 56 01/01/18 04:01 98.5 59 18 126/60 (82) 96 01/01/18 04:00 59 01/01/18 02:00 63 01/01/18 00:00 64 01/01/18 00:00 97.9 64 13 147/68 (94) 96 12/31/17 22:00 72 12/31/17 21:03 97 Nasal Cannula 2.00 12/31/17 20:00 98.4 74 17 176/84 (114) 97 12/31/17 20:00 74 12/31/17 18:00 84 I/O 12/31/17 12/31/17 12/31/17 01/01/18 01/01/18 01/01/18 07:00 15:00 23:00 07:00 15:00 23:00 Intake Total 290 ml 530 ml 480 ml Output Total 1200 ml 800 ml 2000 ml Balance -910 ml -270 ml -1520 ml Intake Oral 240 ml 480 ml 480 ml IV Total 50 ml 50 ml Output Urine Total 1200 ml 800 ml 2000 ml # Bowel Movements 1 1 Result Diagram: 01/01/18 0355 01/01/18 0355 Objective Remarks GENERAL: patient sitting up in bed. Appears comfortable.alert and oriented 3. SKIN: Warm and dry. HEAD: Normocephalic. EYES: No scleral icterus. No injection or drainage. NECK: Supple, trachea midline. No JVD. CARDIOVASCULAR: Regular rate and rhythm without murmurs, gallops, or rubs. RESPIRATORY: Breath sounds equal bilaterally. No accessory muscle use. GASTROINTESTINAL: Abdomen soft, non-tender, nondistended. MUSCULOSKELETAL: No cyanosis. anasarca. Dependent edema. No erythema. Right leg wound dressed with dressing clean and dry and intact. BACK: Nontender without obvious deformity. No CVA tenderness. 2/3. Right Gaze nystagmus. Mary maneuver performed at bedside reportedly successful inpatient. A/P Assessment and Plan =====2/3 //Diabetes mellitus. //Hypoglycemia. =Discussed with nurse. Hypoglycemia of 30 this morning. We'll discontinue Levemir. //BPPV: nystagmus on exam Performed Mary maneuver at bedside with improvement. Suspect this is the cause of her intermittent nausea which leads to hypoglycemia //CHF //Hypertension = 2/3. Blood pressure improved. ( Last night patient's blood pressure was 220 systolic according to nurse, however this is not recorded in the computer) Slightly overtreated. We will adjust blood pressure meds. Stop minoxidil. Decreased prolactin 12.5. Decrease Coreg to 3.125. //Anemia. Hemoglobin 8.1, stable from yesterday. Continue to monitor. No signs of bleeding. // sepsis //Gram-positive bacteremia MRSE = With hypothermia, hypoglycemia. Right leg wound. -Lactate within normal limits. CT with no acute abdominal findings, however marketed bilateral pleural effusions. Right leg wound, elevated ESR in the 40s. = We'll place on broad-spectrum antibiotics. Consult wound care for right leg wound. Follow-up cultures. = 12/29. One out of 4 blood cultures from admission with gram-positive bacilli. Repeat blood cultures. Order echocardiogram. Consult infectious disease. Follow cultures. = 12/30. 4-4 blood cultures for admission with gram-positive cocci. Continue vancomycin. ID following. Appreciate assistance follow-up repeat cultures. =4/4 cultures with MRSE. Continue vancomycin. Appreciate ID assistance. //Hypothermia //Elevated TSH 10 on admission = Hypothermia improved with bear hugger. Continue Pricilla hugger as needed. Cortisol level within suspected range. Order IV hydrocortisone. = Hypothermia much improved. TSH within normal limits. Not myxedema coma. Patient likely overdose on insulin accidentally due to poor by mouth intake on the day of admission. Would expect elevated TSH during moment's of stress. //Severe malnutrition. Patient tolerating diet. Encourage with Griffith supplements. = Continue scheduled IV albumin. Encourage by mouth intake. = Discontinued scheduled albumin. //DM //With hypoglycemia on admission = Glucose Improved after D50. We'll continue to monitor closely in the ICU. We 'll hold home medications, except for low dose no blocks sliding scale. = 12/29. Hyperglycemia in the 300s. Will change insulin sliding scale. = 12/30. Blood sugars improved. Continue to monitor. =2/3 Discussed with nurse. Hypoglycemia of 30 this morning. We'll discontinue Levemir. //CHF exacerbation = BNP 1000. Bilateral lower extremity edema. Bilateral pleural effusions. We' ll order IV Lasix. Checked monitoring of intake and output. Appreciate nursing assistance. = Continue IV furosemide. Start on albumin. Encourage nutrition. = Renal function relatively stable. Continue Lasix. //Bilateral pleural effusions Cardiology cannot clear patient to hold Effient due to recent drug-eluting stent. Expect these are secondary to CHF. Will continue to follow. //CK D. = Creatinine 2.1, around baseline. Nephrology following. Appreciate assistance = 12/30. Creatinine stable 2.1. Continue to monitor. Nephrology following. Appreciate assistance.. =2 Creatinine 2.4. Worsened. Continue to monitor. Nephrology following. Appreciate assistance. //CAD. //Hypertension = Cardiology following. Appreciate assistance. Continue Effient and aspirin. =2/ Accelerated hypertension. Blood pressure elevated to 200 systolic. Discontinued scheduled albumin. Medications adjusted. = 2/3. Blood pressure improved. Slightly overtreated. We will adjust blood pressure meds. Stop minoxidil. Decreased prolactin 12.5. //BPPV: nystagmus on exam Performed Mary maneuver at bedside with improvement. Suspect this is the cause of her intermittent nausea which leads to hypoglycemia //Marijuana abuse. Cessation counseling provided. //COPD. Not appear to be in acute exacerbation. Nebs as needed. //Recent C. difficile. = Positive C. difficile. Continue by mouth vancomycin. //Anemia. Hemoglobin 10 on admission. 9.0 on 12/30. This is likely secondary to intravascular volume expansion secondary to IV albumin. No signs of bleeding. Continue to monitor. =Hemoglobin 8.1, down from admission. All cell lines down. Likely dilutional. //Right leg wound. Poorly healing. Follows with care. Consult wound care here. = Appreciate wound care assistance. Discharge Planning Cont inpt tx for now physical therapy following. = Patient will likely need SNF. not doing well at home. Appreciate case management assistance. Timi Koehler MD Jan 01, 2018 16:58
[2018-01-01] MEDS: NIFEdipine 30 MG SUSTAINED RELEASE TAB PO SCH (21:14)
[2018-01-01] MEDS: CARVEDILOL 3.125 MG TAB PO SCH (21:14)
[2018-01-01] MEDS: ATORVASTATIN 40 MG TAB PO SCH (21:14)
[2018-01-02] VITALS (18 sets, daily range): BP systolic 138–195; BP diastolic 64–88; PULSE 67–82; RESP 12–24; TEMP 97.8–98.4; O2SAT 93–98
[2018-01-02] MEDS: cloNIDine HCL 0.1 MG TAB PO PRN (01:14)
[2018-01-02] MEDS ORDERED: hydrALAZINE HCL 20 MG/ML VIAL IV PUSH ONE (02:15)
[2018-01-02 04:09] LABS: AUTOMATED NEUTROPHIL # 2.9 TH/MM3 (1.8-7.7); BASOPHIL # 0.1 TH/MM3 (0-0.2); BASOPHIL % 1.4 % (0.0-2.0); EOSINOPHIL # 0.2 TH/MM3 (0-0.4); EOSINOPHIL % 4.2 % (0.0-4.0); HEMATOCRIT 26.1 % (35.0-46.0); HEMOGLOBIN 8.7 GM/DL (11.6-15.3); LYMPH % 21.1 % (9.0-44.0); LYMPHOCYTE # 0.9 TH/MM3 (1.0-4.8); MEAN CELL VOLUME 88.2 FL (80.0-100.0); MEAN CORPUSCULAR HEMOGLOBIN 29.3 PG (27.0-34.0); MEAN CORPUSCULAR HGB CONC 33.2 % (32.0-36.0); MEAN PLATELET VOLUME 8.2 FL (7.0-11.0); MONO % 7.8 % (0.0-8.0); MONOCYTE # 0.3 TH/MM3 (0-0.9); NEUT % 65.5 % (16.0-70.0); PLATELET COUNT 231 TH/MM3 (150-450); RED BLOOD COUNT 2.96 MIL/MM3 (4.00-5.30); RED CELL DISTRIBUTION WIDTH 16.6 % (11.6-17.2); WHITE BLOOD COUNT 4.4 TH/MM3 (4.0-11.0)
[2018-01-02 04:26] LABS: ALBUMIN 1.6 GM/DL (3.4-5.0); BICARBONATE 25.4 MEQ/L (21.0-32.0); CALCIUM 8.7 MG/DL (8.5-10.1); CREATININE 2.81 MG/DL (0.50-1.00); MAGNESIUM 2.3 MG/DL (1.5-2.5); PHOSPHORUS 4.1 MG/DL (2.5-4.9)
[2018-01-02] MEDS: ACETAMINOPHEN/HYDROcodone 325 MG/5 MG TAB PO PRN ×2 (05:18→23:20)
[2018-01-02] MEDS: ISOSORBIDE MONONITRATE 60 MG CR TAB (IMDUR) PO SCH (05:18)
[2018-01-02] MEDS: hydrALAZINE HCL 50 MG TAB PO SCH ×3 (05:18→23:20)
[2018-01-02] MEDS: SODIUM CHLORIDE 0.9% FLUSH 10 ML FLUSH IV FLUSH SCH ×2 (08:10→21:19)
[2018-01-02] MEDS: INSULIN ASPART SUPPLEMENTAL SCALE SQ SCH ×4 (08:10→21:00)
[2018-01-02] MEDS: VANCOMYCIN 500 MG VIAL (FOR ORAL USE ONLY) PO SCH ×4 (08:13→21:19)
[2018-01-02] MEDS: HEPARIN SODIUM - SQ 10,000 UNITS/ML VIAL SQ SCH ×2 (08:13→21:18)
[2018-01-02] MEDS: PRASUGREL 10 MG TAB PO SCH (08:13)
[2018-01-02] MEDS: CARVEDILOL 3.125 MG TAB PO SCH ×2 (08:13→21:19)
[2018-01-02] MEDS: NIFEdipine 30 MG SUSTAINED RELEASE TAB PO SCH ×2 (08:13→21:19)
[2018-01-02] MEDS: ASPIRIN 81 MG CHEW TAB CHEW SCH (08:14)
[2018-01-02] MEDS: METOLAZONE 2.5 MG TAB PO SCH ×2 (08:14→21:00)
[2018-01-02] MEDS ORDERED: INSULIN DETEMIR 100 UNITS/ML VIAL SQ ONE (12:00)
--- NOTE | 2018-01-02 12:01 | HHI.NPPN ---
Subjective History of Present Illness This is a 67-year-old female known to me from before, has been following with me in the office with past medical history of hypertension, ischemic heart disease, congestive heart failure, diabetes mellitus, chronic obstructive pulmonary disease, chronic anemia, hyperlipidemia, chronic kidney disease, came to the hospital with low blood sugar. I was called to see the patient because of elevated BUN and creatinine. The patient has known history of chronic kidney disease. Her baseline creatinine is around 1.6-1.8. She came in with creatinine of 1.6 and it has gone up to 2.0 and 2.1. The patient was hypotensive on admission and also she has bradycardia and she was hypothermic. She is much better now, her sugar has gone up after given the D50 and she is currently sitting in the chair with nasal cannula. She has mild shortness of breath. According to her the swelling in the leg has been improving but she still has a lot of edema in the legs. She denies any headache or dizziness at present. No chest pain. She has mild cough which is mainly dry. No history of dysuria, hematuria, difficulty passing urine. Additional Remarks Patient in good spirits. Reports mild SOB. Edema is improving. UOP improving. Review of Systems Respiratory Respiratory Remarks Mild SOB Cardiovascular Cardiac Remarks Denies CP Gastrointestinal Gastrointestinal: Diarrhea Objective Data Data Vital Signs Date Time Temp Pulse Resp B/P (MAP) Pulse Ox O2 Delivery O2 Flow Rate FiO2 01/02/18 10:00 67 01/02/18 08:29 96 Nasal Cannula 2.00 01/02/18 08:00 97.8 75 16 152/67 (95) 95 01/02/18 08:00 75 01/02/18 06:00 75 01/02/18 04:00 97.9 74 12 169/72 (104) 96 01/02/18 04:00 74 01/02/18 02:00 71 01/02/18 00:00 68 01/02/18 00:00 98.0 68 14 195/88 (123) 97 01/01/18 22:00 69 01/01/18 20:00 70 01/01/18 20:00 97.9 70 16 141/67 (91) 98 01/01/18 19:43 99 Nasal Cannula 2.00 01/01/18 18:39 21 2/3/18 18:00 78 01/01/18 18:00 78 13 138/67 (90) 95 01/01/18 17:00 75 21 139/67 (91) 97 01/01/18 16:00 64 01/01/18 16:00 97.5 64 16 128/60 (82) 95 01/01/18 15:01 63 14 146/68 (94) 95 01/01/18 14:00 62 01/01/18 14:00 62 16 125/60 (81) 92 01/01/18 13:00 72 16 137/65 (89) 93 01/01/18 12:00 98.0 59 19 162/78 (106) 98 01/01/18 12:00 59 -: 01/02/18 0315 01/02/18 0315 Physical Exam General Appearance: Well Nourished, No Acute Distress, Comfortable Eyes Eye Exam: Pupils Equal Pulmonary Resp Exam: Breath Sounds Equal, No Distress, Decreased Bases Cardiology CV Exam: Regular, Normal Sinus Rhythm Gastrointestinal/Abdomen GI Exam: Soft, Non-Tender, Bowel Sounds Present Genitourinary Exam: Flank Non-Tender Integumentary Skin Exam: Clear, Warm, Ulcer(s) Extremeties Extremities Exam: Pitting Edema Neurologic Neuro Exam: Alert, Awake Psychiatric Psych Exam: Appropriate Responses Assessment/Plan Discussed Condition With: Patient Assessment Summary: CKD Stage IV Problem List: (1) Renal insufficiency ICD Codes: N28.9 - Disorder of kidney and ureter, unspecified Plan: The patient has chronic kidney disease with proteinuria, most likely she has diabetic nephropathy Creatinine stable 2.4 today. Continues to have pitting edema but improving with addition on metolazone BC growing Gram Positive, Staph. Coag. negative. On Vanco PO and Zosyn. UOP has improved and edema is improving. Plan Monitor I+O continue Aldactone and metolazone. off Lasix Avoid nephrotoxins Once the kidney function is stabilized and she can be started on RUSS inhibitor, if her potassium is normal. BP is better Dr. Toro to follow (2) Leukocytosis ICD Codes: D72.829 - Elevated white blood cell count, unspecified Status: Acute (3) Hypertension ICD Codes: I10 - Essential (primary) hypertension Status: Chronic (4) Sepsis ICD Codes: A41.9 - Sepsis, unspecified organism Status: Acute (5) Anemia ICD Codes: D64.9 - Anemia, unspecified Status: Chronic (6) Stage 4 chronic kidney disease ICD Codes: N18.4 - Chronic kidney disease, stage 4 (severe) Problem Qualifiers (1) Hypertension: Qualified Codes: I10 - Essential (primary) hypertension Rigoberto Blue MD Jan 02, 2018 12:01
--- NOTE | 2018-01-02 12:06 | HHI.PR ---
Subjective Remarks Seen this morning. Says she feels better today. Vertigo has improved. Denies any chest pain or shortness of breath or denies any nausea or vomiting. Discussed with nurse. Systolic blood pressure 200 while lying down. We will plan to take all pressures only while sitting up from now on. Objective Vital Signs Date Time Temp Pulse Resp B/P (MAP) Pulse Ox O2 Delivery O2 Flow Rate FiO2 01/02/18 10:00 67 01/02/18 08:29 96 Nasal Cannula 2.00 01/02/18 08:00 97.8 75 16 152/67 (95) 95 01/02/18 08:00 75 01/02/18 06:00 75 01/02/18 04:00 97.9 74 12 169/72 (104) 96 01/02/18 04:00 74 01/02/18 02:00 71 01/02/18 00:00 68 01/02/18 00:00 98.0 68 14 195/88 (123) 97 01/01/18 22:00 69 01/01/18 20:00 70 01/01/18 20:00 97.9 70 16 141/67 (91) 98 01/01/18 19:43 99 Nasal Cannula 2.00 01/01/18 18:39 21 01/01/18 18:00 78 01/01/18 18:00 78 13 138/67 (90) 95 01/01/18 17:00 75 21 139/67 (91) 97 01/01/18 16:00 64 01/01/18 16:00 97.5 64 16 128/60 (82) 95 01/01/18 15:01 63 14 146/68 (94) 95 01/01/18 14:00 62 01/01/18 14:00 62 16 125/60 (81) 92 01/01/18 13:00 72 16 137/65 (89) 93 I/O 01/01/18 01/01/18 01/01/18 01/02/18 01/02/18 01/02/18 07:00 15:00 23:00 07:00 15:00 23:00 Intake Total 480 ml 500 ml 240 ml Output Total 2000 ml 250 ml 500 ml Balance -1520 ml 250 ml -260 ml Intake Oral 480 ml 500 ml 240 ml Output Urine Total 2000 ml 250 ml 500 ml # Bowel Movements 1 1 1 Result Diagram: 01/02/1831401/02/18314 Objective Remarks GENERAL: patient sitting up in bed. Appears comfortable.alert and oriented 3. SKIN: Warm and dry. HEAD: Normocephalic. EYES: No scleral icterus. No injection or drainage. NECK: Supple, trachea midline. No JVD. CARDIOVASCULAR: Regular rate and rhythm without murmurs, gallops, or rubs. RESPIRATORY: Breath sounds equal bilaterally. No accessory muscle use. GASTROINTESTINAL: Abdomen soft, non-tender, nondistended. MUSCULOSKELETAL: No cyanosis. anasarca. Dependent edema continues. No erythema. Right leg wound dressed with dressing clean and dry and intact. BACK: Nontender without obvious deformity. No CVA tenderness. 2/3. Right Gaze nystagmus. Pedro maneuver performed at bedside reportedly successful inpatient. A/P Assessment and Plan =====2/4 //Diabetes mellitus. //Hypoglycemia. = Hyperglycemia with sugars in the 200s. Preferable to 30s. Increase insulin sensitivity secondary to kidney failure. Will start on Levemir 2 units twice daily. Switched to low dose sliding scale. //BPPV: nystagmus on exam Performed Pedro maneuver at bedside with improvement. Suspect this is the cause of her intermittent nausea which leads to hypoglycemia = 2/4. Resolved. //CHF //Hypertension = 2/4 blood pressure today up to 200 while lying down sleeping. We'll only check blood pressures while sitting up and awake as per standard protocol. Continue to monitor. //Anemia. Hemoglobin 8.7, improved from yesterday. Continue to monitor. No signs of bleeding. //Acute kidney injury. Creatinine worsening 2.8. We'll discontinue vancomycin. Started on doxycycline. Appreciate nephrology assistance. //Sepsis with Gram-positive bacteremia MRSE. Discontinue vancomycin due to renal insufficiency. Repeat blood cultures negative. Start on IV doxycycline. // sepsis //Gram-positive bacteremia MRSE = With hypothermia, hypoglycemia. Right leg wound. -Lactate within normal limits. CT with no acute abdominal findings, however marketed bilateral pleural effusions. Right leg wound, elevated ESR in the 40s. = We'll place on broad-spectrum antibiotics. Consult wound care for right leg wound. Follow-up cultures. = 12/29. One out of 4 blood cultures from admission with gram-positive bacilli. Repeat blood cultures. Order echocardiogram. Consult infectious disease. Follow cultures. = 12/30. 4-4 blood cultures for admission with gram-positive cocci. Continue vancomycin. ID following. Appreciate assistance follow-up repeat cultures. =01/02 Discontinue vancomycin due to renal insufficiency. Repeat blood cultures negative. Start on IV doxycycline. //Hypothermia //Elevated TSH 10 on admission = Hypothermia improved with bear hugger. Continue Pricilla hugger as needed. Cortisol level within suspected range. Order IV hydrocortisone. = Hypothermia much improved. TSH within normal limits. Not myxedema coma. Patient likely overdose on insulin accidentally due to poor by mouth intake on the day of admission. Would expect elevated TSH during moment's of stress. //Severe malnutrition. Patient tolerating diet. Encourage with Griffith supplements. = Continue scheduled IV albumin. Encourage by mouth intake. = Discontinued scheduled albumin. //DM //With hypoglycemia on admission = Glucose Improved after D50. We'll continue to monitor closely in the ICU. We 'll hold home medications, except for low dose no blocks sliding scale. = 12/29. Hyperglycemia in the 300s. Will change insulin sliding scale. = 12/30. Blood sugars improved. Continue to monitor. =2/3 Discussed with nurse. Hypoglycemia of 30 this morning. We'll discontinue Levemir. //CHF exacerbation = BNP 1000. Bilateral lower extremity edema. Bilateral pleural effusions. We' ll order IV Lasix. Checked monitoring of intake and output. Appreciate nursing assistance. = Continue IV furosemide. Start on albumin. Encourage nutrition. = Renal function relatively stable. Continue Lasix. //Bilateral pleural effusions Cardiology cannot clear patient to hold Effient due to recent drug-eluting stent. Expect these are secondary to CHF. Will continue to follow. //CK D. = Creatinine 2.1, around baseline. Nephrology following. Appreciate assistance = 12/30. Creatinine stable 2.1. Continue to monitor. Nephrology following. Appreciate assistance.. =12/31 Creatinine 2.4. Worsened. Continue to monitor. Nephrology following. Appreciate assistance. //CAD. //Hypertension = Cardiology following. Appreciate assistance. Continue Effient and aspirin. =2/2 Accelerated hypertension. Blood pressure elevated to 200 systolic. Discontinued scheduled albumin. Medications adjusted. = 2/3. Blood pressure improved. Slightly overtreated. We will adjust blood pressure meds. Stop minoxidil. Decreased prolactin 12.5. //BPPV: nystagmus on exam Performed Pedro maneuver at bedside with improvement. Suspect this is the cause of her intermittent nausea which leads to hypoglycemia //Marijuana abuse. Cessation counseling provided. //COPD. Not appear to be in acute exacerbation. Nebs as needed. //Recent C. difficile. = Positive C. difficile. Continue by mouth vancomycin. //Anemia. Hemoglobin 10 on admission. 9.0 on 12/30. This is likely secondary to intravascular volume expansion secondary to IV albumin. No signs of bleeding. Continue to monitor. =Hemoglobin 8.1, down from admission. All cell lines down. Likely dilutional. //Right leg wound. Poorly healing. Follows with care. Consult wound care here. = Appreciate wound care assistance. Discharge Planning Cont inpt tx for now physical therapy following. transfer to floor = Patient will likely need SNF. not doing well at home. Appreciate case management assistance. Timi Koehler MD Jan 02, 2018 12:06
[2018-01-02] MEDS ORDERED: DOXYCYCLINE INJ 200 MG in SODIUM CHLOR 0.9% 250 ML INJ 250 ML IV SCH (13:00)
[2018-01-02] MEDS ORDERED: DAPTOmycin INJ 0 MG in SODIUM CHLORIDE 0.9% INJ 100 ML IV SCH (13:15)
[2018-01-02] MEDS: SPIRONOLACTONE 25 MG TAB PO SCH (13:16)
--- NOTE | 2018-01-02 15:07 | RADRPT ---
EXAM DATE/TIME: 01/02/2018 14:33 [facility] COMPARISON: No previous studies available for comparison. INDICATIONS : Increased BUN/Creatnine. MEDICAL HISTORY : Myocardial infarction. Congestive heart failure. Hypercholesterolemia. Dentures . Neuropathy. Coronary artery disease. Anticoagulant therapy. Atrial fibrillation. COPD. Asthma. Dysp ashwini. Hiatal hernia. Arthritis. Diabetes. C-diff. MRSA. SURGICAL HISTORY : Tonsillectomy. Coronary artery stent. Appendectomy. Adenoidectomy. Hysterectom y. Back surgery. Ganglion cyst. ENCOUNTER: Subsequent ACUITY: 1 day PAIN SCORE: 4/10 LOCATION: Bilateral flank MEASUREMENTS: RIGHT KIDNEY: 10.2 x 3.7 x 4.6 cm LEFT KIDNEY: 10.3 x 3.5 x 5.0 cm FINDINGS: There is no hydronephrosis. No definite solid mass is identified. No definite stone is identified f or technique. The bladder is grossly intact for technique and not being completely distended during t he exam. Left pleural effusion is present with a trace of ascites in the upper abdomen. The liver is echogenic may be fatty infiltrated not adequately characterize. CONCLUSION: Left pleural effusion with sinusitis and possible fatty liver. Ernestine King MD on January 02, 2018 at 15:04 Board Certified Radiologist. This report was verified electronically.
[2018-01-02] MEDS: DAPTOmycin INJ 500 MG in SODIUM CHLORIDE 0.9% INJ 100 ML IV SCH (17:08)
[2018-01-02 18:37] LABS: AMORPHOUS SEDIMENT, URINE RARE; BILIRUBIN, URINE NEG (NEG); BLOOD, URINE SMALL (NEG); GLUCOSE,URINE 300 mg/dL (NEG); KETONE, URINE NEG (NEG); MUCUS URINE FEW /lpf (OCC); NITRITE,URINE NEG (NEG); PH, URINE 6.5 (5.0-8.5); SQUAMOUS EPITHELIAL CELL URINE <1 /hpf (0-5); URINE COLOR LIGHT-YELLOW (YELLW/STRAW); URINE LEUKOCYTE ESTERASE SMALL (NEG)
[2018-01-02] MEDS: INSULIN DETEMIR 100 UNITS/ML VIAL SQ SCH (21:18)
[2018-01-03] VITALS (13 sets, daily range): BP systolic 136–176; BP diastolic 63–117; PULSE 70–82; RESP 11–19; TEMP 97.6–98.5; O2SAT 95–98
[2018-01-03 05:05] LABS: AUTOMATED NEUTROPHIL # 3.4 TH/MM3 (1.8-7.7); BASOPHIL % 0.8 % (0.0-2.0); EOSINOPHIL # 0.2 TH/MM3 (0-0.4); EOSINOPHIL % 3.4 % (0.0-4.0); HEMATOCRIT 24.5 % (35.0-46.0); HEMOGLOBIN 8.5 GM/DL (11.6-15.3); LYMPH % 28.1 % (9.0-44.0); LYMPHOCYTE # 1.6 TH/MM3 (1.0-4.8); MEAN CELL VOLUME 87.4 FL (80.0-100.0); MEAN CORPUSCULAR HEMOGLOBIN 30.3 PG (27.0-34.0); MEAN CORPUSCULAR HGB CONC 34.6 % (32.0-36.0); MEAN PLATELET VOLUME 7.9 FL (7.0-11.0); MONO % 8.6 % (0.0-8.0); MONOCYTE # 0.5 TH/MM3 (0-0.9); NEUT % 59.1 % (16.0-70.0); PLATELET COUNT 251 TH/MM3 (150-450); RED BLOOD COUNT 2.81 MIL/MM3 (4.00-5.30); RED CELL DISTRIBUTION WIDTH 16.6 % (11.6-17.2); WHITE BLOOD COUNT 5.7 TH/MM3 (4.0-11.0)
[2018-01-03 05:24] LABS: ALBUMIN 1.7 GM/DL (3.4-5.0); BICARBONATE 24.2 MEQ/L (21.0-32.0); CALCIUM 8.7 MG/DL (8.5-10.1); CREATININE 2.84 MG/DL (0.50-1.00); MAGNESIUM 2.3 MG/DL (1.5-2.5); PHOSPHORUS 3.8 MG/DL (2.5-4.9)
[2018-01-03] MEDS: hydrALAZINE HCL 50 MG TAB PO SCH ×3 (05:45→20:33)
[2018-01-03] MEDS: ISOSORBIDE MONONITRATE 60 MG CR TAB (IMDUR) PO SCH (05:45)
[2018-01-03] MEDS: INSULIN ASPART SUPPLEMENTAL SCALE SQ SCH ×4 (08:00→20:33)
[2018-01-03] MEDS: ACETAMINOPHEN/HYDROcodone 325 MG/5 MG TAB PO PRN (09:12)
[2018-01-03] MEDS: HEPARIN SODIUM - SQ 10,000 UNITS/ML VIAL SQ SCH ×2 (09:12→20:34)
[2018-01-03] MEDS: SPIRONOLACTONE 25 MG TAB PO SCH (09:12)
[2018-01-03] MEDS: PRASUGREL 10 MG TAB PO SCH (09:12)
[2018-01-03] MEDS: CARVEDILOL 3.125 MG TAB PO SCH ×2 (09:14→20:33)
[2018-01-03] MEDS: VANCOMYCIN 500 MG VIAL (FOR ORAL USE ONLY) PO SCH ×4 (09:14→20:33)
[2018-01-03] MEDS: METOLAZONE 2.5 MG TAB PO SCH ×2 (09:15→20:34)
[2018-01-03] MEDS: ASPIRIN 81 MG CHEW TAB CHEW SCH (09:15)
[2018-01-03] MEDS: INSULIN DETEMIR 100 UNITS/ML VIAL SQ SCH ×2 (09:15→20:33)
[2018-01-03] MEDS: NIFEdipine 30 MG SUSTAINED RELEASE TAB PO SCH ×2 (09:16→20:33)
[2018-01-03] MEDS: SODIUM CHLORIDE 0.9% FLUSH 10 ML FLUSH IV FLUSH SCH ×2 (09:16→20:34)
--- NOTE | 2018-01-03 11:51 | HHI.IDPN ---
Note Infectious Disease Note Patient feels okay. notes vertigo. No other complaints. Awake and alert. On O2 via nasal canula. Repeat blood cultures negative. Patient was admitted to the hospital with altered mental status on December 28, 2017. Blood culture taken on 12/28 has gram-positive cocci in all four bottles. The patient has a nonhealing wound of the right tibia. Consult requested for bacteremia. PAST MEDICAL HISTORY 1. COPD. 2. Hypertension. 3. Hyperlipidemia. 4. Diabetes mellitus. 5. Coronary artery disease. 6. Colitis. 7. Coronary stenting x3. 8. Hysterectomy. 9. Appendectomy. 10. Tonsillectomy. ALLERGIES PROPOXYPHENE. MEDICATIONS 1. Daptomycin. 2. Vancomycin p.o. OBJECTIVE: Vital Signs Date Time Temp Pulse Resp B/P (MAP) Pulse Ox O2 Delivery O2 Flow Rate FiO2 01/03/18 10:12 13 01/03/18 10:00 78 01/03/18 08:00 98.1 76 17 170/117 (134) 96 01/03/18 08:00 75 01/03/18 06:00 70 01/03/18 04:00 98.3 70 19 176/70 (105) 98 01/03/18 04:00 70 01/03/18 02:00 78 01/03/18 00:00 81 01/03/18 00:00 98.3 81 11 163/94 (117) 95 01/02/18 22:00 81 01/02/18 20:05 97 Nasal Cannula 2.00 01/02/18 20:00 78 01/02/18 20:00 98.4 78 20 147/67 (93) 96 01/02/18 18:00 82 01/02/18 16:00 72 18 152/71 (98) 96 01/02/18 16:00 72 01/02/18 15:00 72 16 149/65 (93) 96 01/02/18 14:00 74 01/02/18 14:00 74 21 148/79 (102) 94 01/02/18 13:00 73 19 138/64 (88) 93 01/02/18 12:00 98.1 71 19 142/66 (91) 96 01/02/18 12:00 71 Laboratory Tests Test 01/02/18 03:15 01/03/18 04:25 White Blood Count 4.4 TH/MM3 5.7 TH/MM3 Red Blood Count 2.96 MIL/MM3 2.81 MIL/MM3 Hemoglobin 8.7 GM/DL 8.5 GM/DL Hematocrit 26.1 % 24.5 % Mean Corpuscular Volume 88.2 FL 87.4 FL Mean Corpuscular Hemoglobin 29.3 PG 30.3 PG Mean Corpuscular Hemoglobin Concent 33.2 % 34.6 % Red Cell Distribution Width 16.6 % 16.6 % Platelet Count 231 TH/MM3 251 TH/MM3 Mean Platelet Volume 8.2 FL 7.9 FL Neutrophils (%) (Auto) 65.5 % 59.1 % Lymphocytes (%) (Auto) 21.1 % 28.1 % Monocytes (%) (Auto) 7.8 % 8.6 % Eosinophils (%) (Auto) 4.2 % 3.4 % Basophils (%) (Auto) 1.4 % 0.8 % Neutrophils # (Auto) 2.9 TH/MM3 3.4 TH/MM3 Lymphocytes # (Auto) 0.9 TH/MM3 1.6 TH/MM3 Monocytes # (Auto) 0.3 TH/MM3 0.5 TH/MM3 Eosinophils # (Auto) 0.2 TH/MM3 0.2 TH/MM3 Basophils # (Auto) 0.1 TH/MM3 0.0 TH/MM3 CBC Comment DIFF FINAL DIFF FINAL Differential Comment Laboratory Tests Test 01/02/18 03:15 01/02/18 15:41 01/03/18 04:25 Blood Urea Nitrogen 48 MG/DL 51 MG/DL Creatinine 2.81 MG/DL 2.84 MG/DL Random Glucose 200 MG/DL 117 MG/DL Albumin 1.6 GM/DL 1.7 GM/DL Calcium Level 8.7 MG/DL 8.7 MG/DL Phosphorus Level 4.1 MG/DL 3.8 MG/DL Magnesium Level 2.3 MG/DL 2.3 MG/DL Sodium Level 138 MEQ/L 138 MEQ/L Potassium Level 5.3 MEQ/L 5.0 MEQ/L Chloride Level 107 MEQ/L 108 MEQ/L Carbon Dioxide Level 25.4 MEQ/L 24.2 MEQ/L Anion Gap 6 MEQ/L 6 MEQ/L Estimat Glomerular Filtration Rate 17 ML/MIN 17 ML/MIN Total Creatine Kinase 64 U/L Imaging: Renal Ultrasound 01/02/18 0000 Signed Impressions: Service Date/Time: Tuesday, January 02, 2018 14:33 - CONCLUSION: Left pleural effusion with sinusitis and possible fatty liver. Ernestine King MD Head CT 12/28/17 0807 Signed Impressions: Service Date/Time: Thursday, December 28, 2017 09:04 - CONCLUSION: No acute disease. No significant change has occurred. Héctor Carmona MD Chest X-Ray 12/28/17 0000 Signed Impressions: Service Date/Time: Thursday, December 28, 2017 09:34 - CONCLUSION: By basilar opacities primarily representing effusion stable on the left diminished radiographically on the right although very prominent on CT scan this same day Héctor Carmona MD Abdomen/Pelvis CT 12/28/17 0000 Signed Impressions: Service Date/Time: Thursday, December 28, 2017 09:07 - CONCLUSION: Stable abdomen. No evidence of free air and no evidence of obstruction. Large bilateral pleural effusions with ascites and anasarca. Diverticuli uncomplicated of the colon with diminished mural thickening of the colon suggesting improving colitis. Lim catheter in place in the urinary bladder. Héctor Carmona MD PHYSICAL EXAMINATION GENERAL: No acute distress. Awake and alert and oriented. HEENT: Head is atraumatic. Extraocular movements grossly intact, pupils reactive to light. No icterus. OROPHARYNX: Mucosa is moist. NECK: Supple without adenopathy. LUNGS: Clear breath sounds. breath sounds diminished. HEART: Regular rate and rhythm. No murmurs, rubs or gallops. ABDOMEN: Bowel sounds present, soft, no tenderness. EXTREMITIES: The right tibia has ulceration at the inner aspect distally approximately 6 cm long and approximately 3 cm wide. The extremities has 2+ pitting edema from the thigh down to the feet. SKIN: No diffuse rash. NEUROLOGIC: No gross focal findings. PSYCHIATRIC: Pleasant calm and cooperative. IMPRESSION 1. Bacteremia with gram-positive bacteria. Staph epi, Questionable etiology. Repeat culture negative. 2. C-difficile colitis. 3. Nonhealing right tibial wound. Culture has no growth. RECOMMENDATIONS 1. Continue Daptomycin until 01/08/18. 2. Continue vancomycin oral for C-difficile. 3. Monitor blood cultures. 4. Follow the clinical status. Asa Hooks MD Jan 03, 2018 11:51
[2018-01-03] MEDS ORDERED: DAPTOmycin INJ 500 MG in SODIUM CHLORIDE 0.9% INJ 100 ML IV SCH (13:15)
--- NOTE | 2018-01-03 14:36 | HHI.NPPN ---
Subjective History of Present Illness This is a 67-year-old female known to me from before, has been following with me in the office with past medical history of hypertension, ischemic heart disease, congestive heart failure, diabetes mellitus, chronic obstructive pulmonary disease, chronic anemia, hyperlipidemia, chronic kidney disease, came to the hospital with low blood sugar. I was called to see the patient because of elevated BUN and creatinine. The patient has known history of chronic kidney disease. Her baseline creatinine is around 1.6-1.8. She came in with creatinine of 1.6 and it has gone up to 2.0 and 2.1. The patient was hypotensive on admission and also she has bradycardia and she was hypothermic. She is much better now, her sugar has gone up after given the D50 and she is currently sitting in the chair with nasal cannula. She has mild shortness of breath. According to her the swelling in the leg has been improving but she still has a lot of edema in the legs. She denies any headache or dizziness at present. No chest pain. She has mild cough which is mainly dry. No history of dysuria, hematuria, difficulty passing urine. Additional Remarks Reports mild SOB. Edema has improved over the weekend. Good UOP (Jessica Clemons) Review of Systems Respiratory Respiratory Remarks Mild SOB (Jessica Clemons) Cardiovascular Cardiac Remarks Denies CP (Jessica Clemons) Gastrointestinal Gastrointestinal: Diarrhea (Jessica Clemons) Objective Data Data Vital Signs Date Time Temp Pulse Resp B/P (MAP) Pulse Ox O2 Delivery O2 Flow Rate FiO2 01/03/18 12:00 77 01/03/18 12:00 98.2 77 16 136/63 (87) 95 01/03/18 10:12 13 01/03/18 10:00 78 01/03/18 08:00 98.1 76 17 170/117 (134) 96 01/03/18 08:00 75 01/03/18 06:00 70 01/03/18 04:00 98.3 70 19 176/70 (105) 98 01/03/18 04:00 70 01/03/18 02:00 78 01/03/18 00:00 81 01/03/18 00:00 98.3 81 11 163/94 (117) 95 01/02/18 22:00 81 01/02/18 20:05 97 Nasal Cannula 2.00 01/02/18 20:00 78 01/02/18 20:00 98.4 78 20 147/67 (93) 96 01/02/18 18:00 82 01/02/18 16:00 72 18 152/71 (98) 96 01/02/18 16:00 72 01/02/18 15:00 72 16 149/65 (93) 96 (Jessica Clemons) -: 01/03/18 0425 01/03/18 0425 Imaging Last Impressions Renal Ultrasound 01/02/18 0000 Signed Impressions: Service Date/Time: Tuesday, January 02, 2018 14:33 - CONCLUSION: Left pleural effusion with sinusitis and possible fatty liver. Ernestine King MD Head CT 12/28/17 0807 Signed Impressions: Service Date/Time: Thursday, December 28, 2017 09:04 - CONCLUSION: No acute disease. No significant change has occurred. Héctor Carmona MD Chest X-Ray 12/28/17 0000 Signed Impressions: Service Date/Time: Thursday, December 28, 2017 09:34 - CONCLUSION: By basilar opacities primarily representing effusion stable on the left diminished radiographically on the right although very prominent on CT scan this same day Héctor Carmona MD Abdomen/Pelvis CT 12/28/17 0000 Signed Impressions: Service Date/Time: Thursday, December 28, 2017 09:07 - CONCLUSION: Stable abdomen. No evidence of free air and no evidence of obstruction. Large bilateral pleural effusions with ascites and anasarca. Diverticuli uncomplicated of the colon with diminished mural thickening of the colon suggesting improving colitis. Lim catheter in place in the urinary bladder. Héctor Carmona MD (Jessica Clemons) Physical Exam General Appearance: Well Nourished, No Acute Distress, Comfortable (Jessica Clemons) Eyes Eye Exam: Pupils Equal (Jessica Clemons) Pulmonary Resp Exam: Breath Sounds Equal, No Distress, Decreased Bases (Jessica Clemons) Cardiology CV Exam: Regular, Normal Sinus Rhythm (Jessica Clemons) Gastrointestinal/Abdomen GI Exam: Soft, Non-Tender, Bowel Sounds Present (Jessica Clemons) Genitourinary Exam: Flank Non-Tender (Jessica Clemons) Integumentary Skin Exam: Clear, Warm, Ulcer(s) (Jessica Clemons) Extremeties Extremities Exam: Pitting Edema (Jessica Clemons) Neurologic Neuro Exam: Alert, Awake (Jessica Clemons) Psychiatric Psych Exam: Appropriate Responses (Jessica Clemons) Assessment/Plan Discussed Condition With: Patient Assessment Summary: CKD Stage IV Problem List: (1) Renal insufficiency ICD Codes: N28.9 - Disorder of kidney and ureter, unspecified Plan: The patient has chronic kidney disease with proteinuria, most likely she has diabetic nephropathy Creatinine slightly elevated at 2.84 today BC growing Gram Positive, Staph. Coag. negative. On Vanco PO and Daptomycin Good UOP and edema improving. Weight is down. Potassium WNL Renal US noted Plan Monitor I+O continue Aldactone and metolazone. Avoid nephrotoxins Once the kidney function is stabilized and she can be started on RUSS inhibitor, if her potassium is normal. (2) Leukocytosis ICD Codes: D72.829 - Elevated white blood cell count, unspecified Status: Acute (3) Hypertension ICD Codes: I10 - Essential (primary) hypertension Status: Chronic Plan: Continue nifedipine, hydralazine, and clonidine (4) Sepsis ICD Codes: A41.9 - Sepsis, unspecified organism Status: Acute (5) Anemia ICD Codes: D64.9 - Anemia, unspecified Status: Chronic (6) Stage 4 chronic kidney disease ICD Codes: N18.4 - Chronic kidney disease, stage 4 (severe) (Jessica Clemons) Problem List: (1) Renal insufficiency ICD Codes: N28.9 - Disorder of kidney and ureter, unspecified Plan: The patient has chronic kidney disease with proteinuria, most likely she has diabetic nephropathy Creatinine slightly elevated at 2.84 today BC growing Gram Positive, Staph. Coag. negative. On Vanco PO and Daptomycin Good UOP and edema improving. Weight is down. Potassium WNL Renal US noted Plan Monitor I+O continue Aldactone and metolazone. Avoid nephrotoxins Once the kidney function is stabilized and she can be started on RUSS inhibitor, if her potassium is normal. Patient seen an examined, agree with above. Creatinine is stable at 2.8, Lasix was stopped. Follow the urine out put and BMP. (2) Leukocytosis ICD Codes: D72.829 - Elevated white blood cell count, unspecified Status: Acute (3) Hypertension ICD Codes: I10 - Essential (primary) hypertension Status: Chronic Plan: Continue nifedipine, hydralazine, and clonidine (4) Sepsis ICD Codes: A41.9 - Sepsis, unspecified organism Status: Acute (5) Anemia ICD Codes: D64.9 - Anemia, unspecified Status: Chronic (6) Stage 4 chronic kidney disease ICD Codes: N18.4 - Chronic kidney disease, stage 4 (severe) (Flavio Toro MD ) Problem Qualifiers (1) Hypertension: Qualified Codes: I10 - Essential (primary) hypertension Jessica Clemons Jan 03, 2018 14:36 Flavio Toro MD Jan 03, 2018 14:37
--- NOTE | 2018-01-03 17:00 | ECHRPT ---
Indication: endocarditis CONCLUSIONS Normal left ventricular size. The left ventricular systolic function is normal with an estimated ejection fraction in the range of 55-60%. Mild mitral valve regurgitation. There is mild tricuspid valve regurgitation. Cannot rule out triscuspid vegetation The pulmonary valve is not well visualized. A moderate left sided pleural effusion is noted. BP: / HR: Rhythm: MEASUREMENTS (Male / Female) Normal Values Technical Quality:Technically difficult study 2D ECHO LV Diastolic Diameter PLAX 5.3 cm 4.2 - 5.9 / 3.9 - 5.3 cm LV Systolic Diameter PLAX 4.0 cm IVS Diastolic Thickness 1.1 cm 0.6 - 1.0 / 0.6 - 0.9 cm LVPW Diastolic Thickness 0.8 cm 0.6 - 1.0 / 0.6 - 0.9 cm LV Relative Wall Thickness 0.4 RV Internal Dim ED PLAX 3.3 cm M-MODE Aortic Root Diameter MM 2.9 cm LA Systolic Diameter MM 4.8 cm LA Ao Ratio MM 1.7 AV Cusp Separation MM 1.6 cm DOPPLER Mitral E Point Velocity 62.7 cm/s Mitral A Point Velocity 81.9 cm/s Mitral E to A Ratio 0.8 LV E' Lateral Velocity 7.0 cm/s Mitral E to LV E' Lateral Ratio 8.9 LV E' Septal Velocity 4.2 cm/s Mitral E to LV E' Septal Ratio 14.8 FINDINGS LEFT VENTRICLE Normal left ventricular size. The left ventricular systolic function is normal with an estimated ejection fraction in the range of 55-60%. RIGHT VENTRICLE Normal right ventricular size and systolic function. LEFT ATRIUM The left atrial size is normal. RIGHT ATRIUM The right atrial size is normal. ATRIAL SEPTUM Normal atrial septal thickness without atrial level shunting by limited color doppler interrogation. AORTA The aortic root and proximal ascending aorta are normal in size on limited imaging. MITRAL VALVE Structurally normal mitral valve. Mild mitral valve regurgitation. AORTIC VALVE Trileaflet aortic valve. No aortic valve stenosis or regurgitation. TRICUSPID VALVE Structurally normal tricuspid valve. There is mild tricuspid valve regurgitation. Cannot rule out triscuspid vegetation PULMONARY VALVE The pulmonary valve is not well visualized. VESSELS The inferior vena cava is normal in size. PERICARDIUM A moderate left sided pleural effusion is noted. Bradley Anguiano MD, FACC (Electronically Signed) Final Date:03 January 2018 16:59
--- NOTE | 2018-01-03 21:17 | HHI.PR ---
Subjective Remarks Denies cp/sob. afebrile. Worsening creatinine Objective Vitals Vital Signs Date Time Temp Pulse Resp B/P (MAP) Pulse Ox O2 Delivery O2 Flow Rate FiO2 01/03/18 18:00 74 01/03/18 16:00 98.5 71 12 136/63 (87) 96 01/03/18 16:00 71 01/03/18 14:00 75 01/03/18 12:00 77 01/03/18 12:00 98.2 77 16 136/63 (87) 95 01/03/18 10:12 13 01/03/18 10:00 78 01/03/18 10:00 95 Nasal Cannula 2.00 01/03/18 08:00 98.1 76 17 170/117 (134) 96 01/03/18 08:00 75 01/03/18 06:00 70 01/03/18 04:00 98.3 70 19 176/70 (105) 98 01/03/18 04:00 70 01/03/18 02:00 78 01/03/18 00:00 81 01/03/18 00:00 98.3 81 11 163/94 (117) 95 01/02/18 22:00 81 I/O 01/02/18 01/02/18 01/02/18 01/03/18 01/03/18 01/03/18 07:00 15:00 23:00 07:00 15:00 23:00 Intake Total 240 ml 860 ml 480 ml 480 ml Output Total 500 ml 600 ml 750 ml 450 ml Balance -260 ml 260 ml -270 ml 30 ml Intake Oral 240 ml 860 ml 480 ml 480 ml Output Urine Total 500 ml 600 ml 750 ml 450 ml # Bowel Movements 1 1 1 1 Result Diagram: 01/03/18 0425 01/03/18 0425 Imaging Last 72 hours Impressions Renal Ultrasound 01/02/18 0000 Signed Impressions: Service Date/Time: Tuesday, January 02, 2018 14:33 - CONCLUSION: Left pleural effusion with sinusitis and possible fatty liver. Ernestine King MD Objective Remarks GENERAL: patient sitting up in bed. Appears comfortable.alert and oriented 3. SKIN: Warm and dry. HEAD: Normocephalic. EYES: No scleral icterus. No injection or drainage. NECK: Supple, trachea midline. No JVD. CARDIOVASCULAR: Regular rate and rhythm without murmurs, gallops, or rubs. RESPIRATORY: Breath sounds equal bilaterally. No accessory muscle use. GASTROINTESTINAL: Abdomen soft, non-tender, nondistended. MUSCULOSKELETAL: No cyanosis. anasarca. Dependent edema continues. No erythema. Right leg wound dressed with dressing clean and dry and intact. BACK: Nontender without obvious deformity. No CVA tenderness. Medications and IVs Current Medications Medications (Trade) Dose Ordered Sig/Marie Route Start Time Stop Time Status Last Admin (NS Flush) 2 ml UNSCH PRN IV FLUSH 12/28/17 10:45 (NS Flush) 2 ml BID IV FLUSH 12/28/17 21:00 01/03/18 20:34 (Zofran Inj) 4 mg Q6H PRN IVP 12/28/17 10:45 01/01/18 08:20 (Narcan Inj) 0.4 mg UNSCH PRN IV PUSH 12/28/17 10:45 (Milk Of Magnesia Liq) 30 ml Q12H PRN PO 12/28/17 10:45 (Senokot) 17.2 mg Q12H PRN PO 12/28/17 10:45 (Dulcolax Supp) 10 mg DAILY PRN RECTAL 12/28/17 10:45 (Lactulose Liq) 30 ml DAILY PRN PO 12/28/17 10:45 (D50w (Vial) Inj) 50 ml UNSCH PRN IV PUSH 12/28/17 10:45 01/01/18 08:38 (Glucagon Inj) 1 mg STAT PRN IM 12/28/17 10:45 (Aspirin Chew) 81 mg DAILY CHEW 12/29/17 09:00 01/03/18 09:15 (Lipitor) 40 mg HS PO 12/28/17 21:00 Future Hold 01/01/18 21:14 (Effient) 10 mg DAILY PO 12/29/17 09:00 01/03/18 09:12 (Heparin Inj) 5,000 units Q12HR SQ 12/28/17 21:00 01/03/18 20:34 ([place] 5-325 Mg) 1 tab Q6H PRN PO 12/28/17 20:45 01/03/18 09:12 Miscellaneous Information Patient in critical care unit? Ass... Q361D .XX 1/30/18 23:30 12/28/17 23:30 (Zaroxolyn) 2.5 mg BID PO 12/29/17 21:00 01/03/18 20:34 (VANCOMYCIN for oral use only) 125 mg QID PO 12/30/17 06:00 01/03/18 20:33 (Imdur) 60 mg DAILY@07 PO 12/31/17 07:00 01/03/18 05:45 (Catapres) 0.1 mg Q6H PRN PO 12/30/17 18:30 01/02/18 01:14 (Atrovent Neb) 0.5 mg Q6HR NEB PRN NEB 12/31/17 18:30 (Apresoline) 75 mg Q8HR PO 12/31/17 22:00 01/03/18 20:33 (Pill Splitter) 1 ea UNSCH PRN OTHER 12/31/17 18:45 (Coreg) 3.125 mg Q12HR PO 01/01/18 21:00 01/03/18 20:33 (Procardia Xl) 30 mg Q12HR PO 01/01/18 21:00 01/03/18 20:33 (Aldactone) 12.5 mg DAILY PO 01/02/18 10:00 01/03/18 09:12 (Levemir Inj) 2 units Q12HR SQ 01/02/18 21:00 01/03/18 20:33 (NovoLOG SUPPLEMENTAL SCALE) 1 ACHS SLIDING SCALE SQ 01/02/18 12:00 01/03/18 20:33 Daptomycin 500 mg/ Sodium Chloride 100 ml @ 200 mls/hr Q48H IV 01/02/18 16:00 01/02/18 17:08 A/P Assessment and Plan sepsis Gram-positive bacteremia MRSE = With hypothermia, hypoglycemia. Right leg wound. -Lactate within normal limits. CT with no acute abdominal findings, however marketed bilateral pleural effusions. Right leg wound, elevated ESR in the 40s. = We'll place on broad-spectrum antibiotics. Consult wound care for right leg wound. Follow-up cultures. = 12/29. One out of 4 blood cultures from admission with gram-positive bacilli. Repeat blood cultures. Order echocardiogram. Consult infectious disease. Follow cultures. = 12/30. 4-4 blood cultures for admission with gram-positive cocci. Continue vancomycin. ID following. Appreciate assistance follow-up repeat cultures. =2/ Discontinue vancomycin due to renal insufficiency. Repeat blood cultures negative. Start on IV doxycycline. 2/5 antibiotics as per ID. Hypothermia Elevated TSH 10 on admission = Hypothermia improved with bear hugger. Continue Pricilla hugger as needed. Cortisol level within suspected range. Order IV hydrocortisone. = Hypothermia much improved. TSH within normal limits. Not myxedema coma. Patient likely overdose on insulin accidentally due to poor by mouth intake on the day of admission. Would expect elevated TSH during moment's of stress. Severe malnutrition. Patient tolerating diet. Encourage with Griffith supplements. = Continue scheduled IV albumin. Encourage by mouth intake. = Discontinued scheduled albumin. DM hypoglycemia on admission = Glucose Improved after D50. We'll continue to monitor closely in the ICU. We 'll hold home medications, except for low dose no blocks sliding scale. = 12/29. Hyperglycemia in the 300s. Will change insulin sliding scale. = 12/30. Blood sugars improved. Continue to monitor. =2/3 Discussed with nurse. Hypoglycemia of 30 this morning. We'll discontinue Levemir. 2/5 Blood sugars improving and blood sugars severely elevated. Increase Levemir to 5 units SQ BID CHF exacerbation = BNP 1000. Bilateral lower extremity edema. Bilateral pleural effusions. We' ll order IV Lasix. Checked monitoring of intake and output. Appreciate nursing assistance. = Continue IV furosemide. Start on albumin. Encourage nutrition. = Renal function relatively stable. Continue Lasix. 2/5 Worsening renal function. Nephrology following. Continue diuretics as per nephrology. Bilateral pleural effusions Cardiology cannot clear patient to hold Effient due to recent drug-eluting stent. Expect these are secondary to CHF. Will continue to follow. CONOR on CKD Worsening renal function, nephrology consulted. CAD. Hypertension = Cardiology following. Appreciate assistance. Continue Effient and aspirin. =2/2 Accelerated hypertension. Blood pressure elevated to 200 systolic. Discontinued scheduled albumin. Medications adjusted. = 2/3. Blood pressure improved. Slightly overtreated. We will adjust blood pressure meds. Stop minoxidil. Decreased prolactin 12.5. BPPV: nystagmus on exam Performed Pedro maneuver at bedside with improvement. Suspect this is the cause of her intermittent nausea which leads to hypoglycemia Marijuana abuse. Cessation counseling provided. COPD. Not appear to be in acute exacerbation. Nebs as needed. Recent C. difficile. = Positive C. difficile. Continue by mouth vancomycin. 01/03 Diarrhea resolved. Anemia. Hemoglobin 10 on admission. 9.0 on 12/30. This is likely secondary to intravascular volume expansion secondary to IV albumin. No signs of bleeding. Continue to monitor. =Hemoglobin 8.1, down from admission. All cell lines down. Likely dilutional. Right leg wound. Poorly healing. Follows with care. Consult wound care here. = Appreciate wound care assistance. Rommel Russell MD Jan 03, 2018 21:17
[2018-01-04] VITALS (20 sets, daily range): BP systolic 156–208; BP diastolic 70–85; PULSE 68–80; RESP 0–23; TEMP 97.8–98.5; O2SAT 96–98
[2018-01-04] MEDS: ACETAMINOPHEN/HYDROcodone 325 MG/5 MG TAB PO PRN (01:58)
[2018-01-04] MEDS: ISOSORBIDE MONONITRATE 60 MG CR TAB (IMDUR) PO SCH (06:21)
[2018-01-04] MEDS: hydrALAZINE HCL 50 MG TAB PO SCH ×3 (06:22→20:23)
[2018-01-04] MEDS: INSULIN ASPART SUPPLEMENTAL SCALE SQ SCH ×4 (08:00→20:24)
[2018-01-04] MEDS: INSULIN DETEMIR 100 UNITS/ML VIAL SQ SCH ×2 (08:26→20:24)
[2018-01-04] MEDS: SPIRONOLACTONE 25 MG TAB PO SCH (08:26)
[2018-01-04] MEDS: CARVEDILOL 3.125 MG TAB PO SCH (08:26)
[2018-01-04] MEDS: NIFEdipine 30 MG SUSTAINED RELEASE TAB PO SCH ×2 (08:26→20:23)
[2018-01-04] MEDS: ASPIRIN 81 MG CHEW TAB CHEW SCH (08:26)
[2018-01-04] MEDS: PRASUGREL 10 MG TAB PO SCH (08:26)
[2018-01-04] MEDS: SODIUM CHLORIDE 0.9% FLUSH 10 ML FLUSH IV FLUSH SCH ×2 (08:27→20:24)
[2018-01-04] MEDS: METOLAZONE 2.5 MG TAB PO SCH ×2 (08:29→20:23)
[2018-01-04] MEDS: VANCOMYCIN 500 MG VIAL (FOR ORAL USE ONLY) PO SCH ×4 (08:29→20:23)
[2018-01-04] MEDS: HEPARIN SODIUM - SQ 10,000 UNITS/ML VIAL SQ SCH ×2 (08:30→20:23)
--- NOTE | 2018-01-04 10:08 | HHI.NPPN ---
Subjective History of Present Illness This is a 67-year-old female known to me from before, has been following with me in the office with past medical history of hypertension, ischemic heart disease, congestive heart failure, diabetes mellitus, chronic obstructive pulmonary disease, chronic anemia, hyperlipidemia, chronic kidney disease, came to the hospital with low blood sugar. I was called to see the patient because of elevated BUN and creatinine. The patient has known history of chronic kidney disease. Her baseline creatinine is around 1.6-1.8. She came in with creatinine of 1.6 and it has gone up to 2.0 and 2.1. The patient was hypotensive on admission and also she has bradycardia and she was hypothermic. She is much better now, her sugar has gone up after given the D50 and she is currently sitting in the chair with nasal cannula. She has mild shortness of breath. According to her the swelling in the leg has been improving but she still has a lot of edema in the legs. She denies any headache or dizziness at present. No chest pain. She has mild cough which is mainly dry. No history of dysuria, hematuria, difficulty passing urine. Additional Remarks Reports mild SOB however improved. Edema improving. Good UOP (Jessica Clemons) Review of Systems Respiratory Respiratory Remarks Mild SOB (Jessica Clemons) Cardiovascular Cardiac Remarks Denies CP (Jessica Clemons) Gastrointestinal Gastrointestinal: Diarrhea (Jessica Clemons) Objective Data Data Vital Signs Date Time Temp Pulse Resp B/P (MAP) Pulse Ox O2 Delivery O2 Flow Rate FiO2 01/04/18 08:00 98.2 78 0 208/84 (125) 96 01/04/18 08:00 78 01/04/18 07:00 68 01/04/18 06:00 69 01/04/18 04:00 98.2 71 17 175/81 (112) 97 01/04/18 04:00 71 01/04/18 02:00 79 01/04/18 00:00 98.1 74 11 167/75 (105) 97 01/04/18 00:00 74 01/03/18 22:00 79 01/03/18 21:15 95 Nasal Cannula 2.00 01/03/18 20:00 82 01/03/18 20:00 97.6 82 11 167/70 (102) 95 01/03/18 18:00 74 01/03/18 16:00 98.5 71 12 136/63 (87) 96 01/03/18 16:00 71 01/03/18 14:00 75 01/03/18 12:00 77 01/03/18 12:00 98.2 77 16 136/63 (87) 95 01/03/18 10:12 13 (Jessica Clemons) -: 01/03/18 0425 01/03/18 0425 Imaging Last Impressions Renal Ultrasound 01/02/18 0000 Signed Impressions: Service Date/Time: Tuesday, January 02, 2018 14:33 - CONCLUSION: Left pleural effusion with sinusitis and possible fatty liver. Ernestine King MD Head CT 12/28/17 0807 Signed Impressions: Service Date/Time: Thursday, December 28, 2017 09:04 - CONCLUSION: No acute disease. No significant change has occurred. Héctor Carmona MD Chest X-Ray 12/28/17 0000 Signed Impressions: Service Date/Time: Thursday, December 28, 2017 09:34 - CONCLUSION: By basilar opacities primarily representing effusion stable on the left diminished radiographically on the right although very prominent on CT scan this same day Héctor Carmona MD Abdomen/Pelvis CT 12/28/17 0000 Signed Impressions: Service Date/Time: Thursday, December 28, 2017 09:07 - CONCLUSION: Stable abdomen. No evidence of free air and no evidence of obstruction. Large bilateral pleural effusions with ascites and anasarca. Diverticuli uncomplicated of the colon with diminished mural thickening of the colon suggesting improving colitis. Lim catheter in place in the urinary bladder. Héctor Carmona MD (Jessica Clemons) Physical Exam General Appearance: Well Nourished, No Acute Distress, Comfortable (Jessica Clemons) Eyes Eye Exam: Pupils Equal (Jessica Clemons) Pulmonary Resp Exam: Breath Sounds Equal, No Distress, Decreased Bases (Jessica Clemons) Cardiology CV Exam: Regular, Normal Sinus Rhythm (Jessica Clemons) Gastrointestinal/Abdomen GI Exam: Soft, Non-Tender, Bowel Sounds Present (Jessica Clemons) Genitourinary Exam: Flank Non-Tender (Jessica Clemons) Integumentary Skin Exam: Clear, Warm, Ulcer(s) (Jessica Clemons) Extremeties Extremities Exam: Pitting Edema (Jessica Clemons) Neurologic Neuro Exam: Alert, Awake (Jessica Clemons) Psychiatric Psych Exam: Appropriate Responses (Jessica Clemons) Assessment/Plan Discussed Condition With: Patient Assessment Summary: CKD Stage IV Problem List: (1) Renal insufficiency ICD Codes: N28.9 - Disorder of kidney and ureter, unspecified Plan: The patient has chronic kidney disease with proteinuria, most likely she has diabetic nephropathy BC growing Gram Positive, Staph. Coag. negative. On Vanco PO and Daptomycin Good UOP and edema improving. Weight is down. Renal US noted Plan Monitor I+O continue Aldactone and metolazone. Avoid nephrotoxins Once the kidney function is stabilized and she can be started on RUSS inhibitor, if her potassium is normal. Follow the urine out put and BMP. Labs pending today (2) Leukocytosis ICD Codes: D72.829 - Elevated white blood cell count, unspecified Status: Acute (3) Hypertension ICD Codes: I10 - Essential (primary) hypertension Status: Chronic Plan: Hypertensive Continue Coreg, nifedipine, hydralazine, and clonidine Coreg has been increased and cardura added (4) Sepsis ICD Codes: A41.9 - Sepsis, unspecified organism Status: Acute (5) Anemia ICD Codes: D64.9 - Anemia, unspecified Status: Chronic (6) Stage 4 chronic kidney disease ICD Codes: N18.4 - Chronic kidney disease, stage 4 (severe) (Jessica Clemons) Problem List: (1) Renal insufficiency ICD Codes: N28.9 - Disorder of kidney and ureter, unspecified Plan: The patient has chronic kidney disease with proteinuria, most likely she has diabetic nephropathy BC growing Gram Positive, Staph. Coag. negative. On Vanco PO and Daptomycin Good UOP and edema improving. Weight is down. Renal US noted Plan Monitor I+O continue Aldactone and metolazone. Avoid nephrotoxins Once the kidney function is stabilized and she can be started on RUSS inhibitor, if her potassium is normal. Follow the urine out put and BMP. Patient seen and examined, agree with above. Creatinine is almost same, add Lasix and IV Albumin, as edema is worsening. BP elevated, Coreg increased, and started on Cardura. (2) Leukocytosis ICD Codes: D72.829 - Elevated white blood cell count, unspecified Status: Acute (3) Hypertension ICD Codes: I10 - Essential (primary) hypertension Status: Chronic Plan: Hypertensive Continue Coreg, nifedipine, hydralazine, and clonidine Coreg has been increased and cardura added (4) Sepsis ICD Codes: A41.9 - Sepsis, unspecified organism Status: Acute (5) Anemia ICD Codes: D64.9 - Anemia, unspecified Status: Chronic (6) Stage 4 chronic kidney disease ICD Codes: N18.4 - Chronic kidney disease, stage 4 (severe) (Flavio Toro MD ) Problem Qualifiers (1) Hypertension: Qualified Codes: I10 - Essential (primary) hypertension Jessica Clemons Jan 04, 2018 10:08 Flavio Toro MD Jan 04, 2018 14:29
[2018-01-04] MEDS ORDERED: DOXAZOSIN MESYLATE 2 MG TAB PO ONE ×2 (11:00→19:15)
[2018-01-04 11:47] LABS: ALBUMIN 1.6 GM/DL (3.4-5.0); AST (GOT) 33 U/L (15-37); BICARBONATE 23.2 MEQ/L (21.0-32.0); BLOOD UREA NITROGEN 49 MG/DL (7-18); CALCIUM 8.5 MG/DL (8.5-10.1); CHLORIDE 108 MEQ/L (98-107); CREATININE 2.85 MG/DL (0.50-1.00); GLOMERULAR FILTRATION RATE 17 ML/MIN (>89); GLUCOSE,RANDOM 180 MG/DL (74-106); SODIUM (NA) 137 MEQ/L (136-145)
[2018-01-04 11:48] LABS: ALT (GPT) 17 U/L (10-53)
[2018-01-04 11:50] LABS: ALKALINE PHOSPHATASE 133 U/L (45-117); TOTAL BILIRUBIN ADULT 0.2 MG/DL (0.2-1.0); TOTAL PROTEIN 5.2 GM/DL (6.4-8.2)
[2018-01-04] MEDS: cloNIDine HCL 0.1 MG TAB PO PRN (12:46)
[2018-01-04] MEDS: ALBUMIN 25% INJ 100 ML IV SCH (15:35)
--- NOTE | 2018-01-04 16:18 | HHI.PR ---
Subjective Remarks BP very elevated with an sbp in the 200's Patient denies cp/sob. Objective Vitals Vital Signs Date Time Temp Pulse Resp B/P (MAP) Pulse Ox O2 Delivery O2 Flow Rate FiO2 01/04/18 15:00 69 01/04/18 14:00 69 01/04/18 13:00 72 01/04/18 12:00 71 01/04/18 12:00 98.5 71 9 176/85 (115) 96 01/04/18 11:00 75 01/04/18 10:10 98 Nasal Cannula 2.00 01/04/18 10:00 78 01/04/18 09:00 79 01/04/18 08:00 98.2 78 0 208/84 (125) 96 01/04/18 08:00 78 01/04/18 07:00 68 01/04/18 06:00 69 01/04/18 04:00 98.2 71 17 175/81 (112) 97 01/04/18 04:00 71 01/04/18 02:00 79 01/04/18 00:00 98.1 74 11 167/75 (105) 97 01/04/18 00:00 74 01/03/18 22:00 79 01/03/18 21:15 95 Nasal Cannula 2.00 01/03/18 20:00 82 01/03/18 20:00 97.6 82 11 167/70 (102) 95 01/03/18 18:00 74 I/O 01/03/18 01/03/18 01/03/18 01/04/18 01/04/18 01/04/18 07:00 15:00 23:00 07:00 15:00 23:00 Intake Total 480 ml 480 ml 400 ml Output Total 750 ml 450 ml 750 ml Balance -270 ml 30 ml -350 ml Intake Oral 480 ml 480 ml 400 ml Output Urine Total 750 ml 450 ml 750 ml # Bowel Movements 1 1 1 Result Diagram: 01/03/18 0425 01/04/18 1100 Imaging Last Impressions Renal Ultrasound 01/02/18 0000 Signed Impressions: Service Date/Time: Tuesday, January 02, 2018 14:33 - CONCLUSION: Left pleural effusion with sinusitis and possible fatty liver. Ernestine King MD Head CT 12/28/17 0807 Signed Impressions: Service Date/Time: Thursday, December 28, 2017 09:04 - CONCLUSION: No acute disease. No significant change has occurred. Héctor Carmona MD Chest X-Ray 12/28/17 0000 Signed Impressions: Service Date/Time: Thursday, December 28, 2017 09:34 - CONCLUSION: By basilar opacities primarily representing effusion stable on the left diminished radiographically on the right although very prominent on CT scan this same day Héctor Carmona MD Abdomen/Pelvis CT 12/28/17 0000 Signed Impressions: Service Date/Time: Thursday, December 28, 2017 09:07 - CONCLUSION: Stable abdomen. No evidence of free air and no evidence of obstruction. Large bilateral pleural effusions with ascites and anasarca. Diverticuli uncomplicated of the colon with diminished mural thickening of the colon suggesting improving colitis. Lim catheter in place in the urinary bladder. Héctor Carmona MD Objective Remarks GENERAL: patient sitting up in bed. Appears comfortable.alert and oriented 3. SKIN: Warm and dry. HEAD: Normocephalic. EYES: No scleral icterus. No injection or drainage. NECK: Supple, trachea midline. No JVD. CARDIOVASCULAR: Regular rate and rhythm without murmurs, gallops, or rubs. RESPIRATORY: Breath sounds equal bilaterally. No accessory muscle use. GASTROINTESTINAL: Abdomen soft, non-tender, nondistended. MUSCULOSKELETAL: No cyanosis. anasarca. Dependent edema continues. No erythema. Right leg wound dressed with dressing clean and dry and intact. BACK: Nontender without obvious deformity. No CVA tenderness. Medications and IVs Current Medications Medications (Trade) Dose Ordered Sig/Marie Route Start Time Stop Time Status Last Admin (NS Flush) 2 ml UNSCH PRN IV FLUSH 12/28/17 10:45 (NS Flush) 2 ml BID IV FLUSH 12/28/17 21:00 01/04/18 20:24 (Zofran Inj) 4 mg Q6H PRN IVP 12/28/17 10:45 01/01/18 08:20 (Narcan Inj) 0.4 mg UNSCH PRN IV PUSH 12/28/17 10:45 (Milk Of Magnesia Liq) 30 ml Q12H PRN PO 12/28/17 10:45 (Senokot) 17.2 mg Q12H PRN PO 12/28/17 10:45 (Dulcolax Supp) 10 mg DAILY PRN RECTAL 12/28/17 10:45 (Lactulose Liq) 30 ml DAILY PRN PO 12/28/17 10:45 (D50w (Vial) Inj) 50 ml UNSCH PRN IV PUSH 12/28/17 10:45 01/01/18 08:38 (Glucagon Inj) 1 mg STAT PRN IM 12/28/17 10:45 (Aspirin Chew) 81 mg DAILY CHEW 12/29/17 09:00 01/05/18 09:00 (Lipitor) 40 mg HS PO 12/28/17 21:00 Future Hold 01/01/18 21:14 (Effient) 10 mg DAILY PO 12/29/17 09:00 01/04/18 08:26 (Heparin Inj) 5,000 units Q12HR SQ 12/28/17 21:00 01/05/18 09:01 ([place] 5-325 Mg) 1 tab Q6H PRN PO 12/28/17 20:45 01/04/18 01:58 Miscellaneous Information Patient in critical care unit? Ass... Q361D .XX 12/28/17 23:30 12/28/17 23:30 (Zaroxolyn) 2.5 mg BID PO 12/29/17 21:00 01/04/18 20:23 (VANCOMYCIN for oral use only) 125 mg QID PO 12/30/17 06:00 01/04/18 20:23 (Imdur) 60 mg DAILY@07 PO 12/31/17 07:00 01/05/18 06:58 (Catapres) 0.1 mg Q6H PRN PO 12/30/17 18:30 01/04/18 12:46 (Atrovent Neb) 0.5 mg Q6HR NEB PRN NEB 12/31/17 18:30 (Apresoline) 75 mg Q8HR PO 12/31/17 22:00 01/05/18 06:58 (Pill Splitter) 1 ea UNSCH PRN OTHER 12/31/17 18:45 (Procardia Xl) 30 mg Q12HR PO 01/01/18 21:00 01/05/18 09:14 (Aldactone) 12.5 mg DAILY PO 01/02/18 10:00 01/04/18 08:26 (NovoLOG SUPPLEMENTAL SCALE) 1 ACHS SLIDING SCALE SQ 01/02/18 12:00 01/04/18 20:24 Daptomycin 500 mg/ Sodium Chloride 100 ml @ 200 mls/hr Q48H IV 01/02/18 16:00 01/04/18 17:17 (Levemir Inj) 5 units Q12HR SQ 01/04/18 09:00 01/04/18 20:24 (Coreg) 6.25 mg Q12HR PO 01/04/18 21:00 01/05/18 09:14 (Cardura) 2 mg DAILY PO 01/05/18 09:00 01/05/18 09:01 Albumin Human 100 ml @ 60 mls/hr Q12H IV 01/04/18 15:00 01/05/18 03:58 (Lasix Inj) 80 mg Q12HR IV PUSH 01/04/18 21:00 01/05/18 09:15 (Cardura) 2 mg DAILY PO 01/05/18 09:00 01/05/18 09:14 A/P Assessment and Plan sepsis Gram-positive bacteremia MRSE = With hypothermia, hypoglycemia. Right leg wound. -Lactate within normal limits. CT with no acute abdominal findings, however marketed bilateral pleural effusions. Right leg wound, elevated ESR in the 40s. = We'll place on broad-spectrum antibiotics. Consult wound care for right leg wound. Follow-up cultures. = 12/29. One out of 4 blood cultures from admission with gram-positive bacilli. Repeat blood cultures. Order echocardiogram. Consult infectious disease. Follow cultures. = 12/30. 4-4 blood cultures for admission with gram-positive cocci. Continue vancomycin. ID following. Appreciate assistance follow-up repeat cultures. =2/4 Discontinue vancomycin due to renal insufficiency. Repeat blood cultures negative. Start on IV doxycycline. Continue antibiotics as per ID. Hypothermia Elevated TSH 10 on admission = Hypothermia improved with bear hugger. Continue Pricilla hugger as needed. Cortisol level within suspected range. Order IV hydrocortisone. = Hypothermia much improved. TSH within normal limits. Not myxedema coma. Patient likely overdose on insulin accidentally due to poor by mouth intake on the day of admission. Would expect elevated TSH during moment's of stress. Severe malnutrition. Patient tolerating diet. Encourage with Griffith supplements. = Continue scheduled IV albumin. Encourage by mouth intake. = Discontinued scheduled albumin. DM hypoglycemia on admission = Glucose Improved after D50. We'll continue to monitor closely in the ICU. We 'll hold home medications, except for low dose no blocks sliding scale. = 12/29. Hyperglycemia in the 300s. Will change insulin sliding scale. = 12/30. Blood sugars improved. Continue to monitor. =2/3 Discussed with nurse. Hypoglycemia of 30 this morning. We'll discontinue Levemir. 01/03 Blood sugars improving and blood sugars severely elevated. Increase Levemir to 5 units SQ BID 01/04 Blood sugars with improved control. Continue insulin Levemir as above. CHF exacerbation = BNP 1000. Bilateral lower extremity edema. Bilateral pleural effusions. We' ll order IV Lasix. Checked monitoring of intake and output. Appreciate nursing assistance. = Continue IV furosemide. Start on albumin. Encourage nutrition. = Renal function relatively stable. Continue Lasix. Worsening renal function. Nephrology following. Continue diuretics as per nephrology. Bilateral pleural effusions Cardiology cannot clear patient to hold Effient due to recent drug-eluting stent. Expect these are secondary to CHF. Will continue to follow. CONOR on CKD Worsening renal function, nephrology consulted. CAD. Hypertension = Cardiology following. Appreciate assistance. Continue Effient and aspirin. =2/ Accelerated hypertension. Blood pressure elevated to 200 systolic. Discontinued scheduled albumin. Medications adjusted. = 2/3. Blood pressure improved. Slightly overtreated. We will adjust blood pressure meds. Stop minoxidil. Decreased prolactin 12.5. 01/04 BP severely elevated with sbp in the 200's range. Increase Coreg dose to 6.25 mg po bis and start Carduram 2 mg po daily. Continue to monitor vital signs. BPPV: nystagmus on exam Performed Pedro maneuver at bedside with improvement. Suspect this is the cause of her intermittent nausea which leads to hypoglycemia Marijuana abuse. Cessation counseling provided. COPD. Not appear to be in acute exacerbation. Nebs as needed. Recent C. difficile. = Positive C. difficile. Continue by mouth vancomycin. 01/03 Diarrhea resolved. Anemia. Hemoglobin 10 on admission. 9.0 on 12/30. This is likely secondary to intravascular volume expansion secondary to IV albumin. No signs of bleeding. Continue to monitor. =Hemoglobin 8.1, down from admission. All cell lines down. Likely dilutional. Right leg wound. Poorly healing. Follows with care. Consult wound care here. = Appreciate wound care assistance. Discharge Planning ok to transfer to the medical floor. Rommel Russell MD Jan 04, 2018 16:18
[2018-01-04] MEDS: DAPTOmycin INJ 500 MG in SODIUM CHLORIDE 0.9% INJ 100 ML IV SCH (17:17)
[2018-01-04] MEDS: CARVEDILOL 6.25 MG TAB PO SCH (20:23)
[2018-01-04] MEDS: FUROSEMIDE 100 MG/10 ML VIAL IV PUSH SCH (20:23)
[2018-01-05] VITALS (9 sets, daily range): BP systolic 162–181; BP diastolic 69–76; PULSE 69–84; RESP 18–20; TEMP 97.2–98.5; O2SAT 93–95
[2018-01-05] MEDS: ALBUMIN 25% INJ 100 ML IV SCH ×2 (03:58→16:07)
[2018-01-05] MEDS: hydrALAZINE HCL 50 MG TAB PO SCH ×3 (06:58→21:48)
[2018-01-05] MEDS: ISOSORBIDE MONONITRATE 60 MG CR TAB (IMDUR) PO SCH (06:58)
[2018-01-05 07:22] LABS: CALCIUM 8.6 MG/DL (8.5-10.1); CREATININE 2.77 MG/DL (0.50-1.00)
[2018-01-05] MEDS: INSULIN ASPART SUPPLEMENTAL SCALE SQ SCH ×4 (07:51→21:00)
[2018-01-05] MEDS: ASPIRIN 81 MG CHEW TAB CHEW SCH (09:00)
[2018-01-05] MEDS: METOLAZONE 2.5 MG TAB PO SCH ×2 (09:00→21:00)
[2018-01-05] MEDS: SODIUM CHLORIDE 0.9% FLUSH 10 ML FLUSH IV FLUSH SCH ×2 (09:00→21:50)
[2018-01-05] MEDS: DOXAZOSIN MESYLATE 2 MG TAB PO SCH ×2 (09:01→09:14)
[2018-01-05] MEDS: HEPARIN SODIUM - SQ 10,000 UNITS/ML VIAL SQ SCH ×2 (09:01→21:50)
[2018-01-05] MEDS: NIFEdipine 30 MG SUSTAINED RELEASE TAB PO SCH ×2 (09:14→21:48)
[2018-01-05] MEDS: CARVEDILOL 6.25 MG TAB PO SCH ×2 (09:14→21:48)
[2018-01-05] MEDS: FUROSEMIDE 100 MG/10 ML VIAL IV PUSH SCH ×2 (09:15→21:49)
[2018-01-05] MEDS: INSULIN DETEMIR 100 UNITS/ML VIAL SQ SCH ×2 (09:17→21:00)
--- NOTE | 2018-01-05 09:30 | HHI.NPPN ---
Subjective History of Present Illness This is a 67-year-old female known to me from before, has been following with me in the office with past medical history of hypertension, ischemic heart disease, congestive heart failure, diabetes mellitus, chronic obstructive pulmonary disease, chronic anemia, hyperlipidemia, chronic kidney disease, came to the hospital with low blood sugar. I was called to see the patient because of elevated BUN and creatinine. The patient has known history of chronic kidney disease. Her baseline creatinine is around 1.6-1.8. She came in with creatinine of 1.6 and it has gone up to 2.0 and 2.1. The patient was hypotensive on admission and also she has bradycardia and she was hypothermic. She is much better now, her sugar has gone up after given the D50 and she is currently sitting in the chair with nasal cannula. She has mild shortness of breath. According to her the swelling in the leg has been improving but she still has a lot of edema in the legs. She denies any headache or dizziness at present. No chest pain. She has mild cough which is mainly dry. No history of dysuria, hematuria, difficulty passing urine. Additional Remarks Reports mild SOB is unchanged. Edema improving. Good UOP . In good spirits (Jessica Clemons) Review of Systems Respiratory Respiratory Remarks Mild SOB (Jessica Clemons) Cardiovascular Cardiac Remarks Denies CP (Jessica Clemons) Gastrointestinal Gastrointestinal: Diarrhea (Jessica Clemons) Objective Data Data Vital Signs Date Time Temp Pulse Resp B/P (MAP) Pulse Ox O2 Delivery O2 Flow Rate FiO2 01/05/18 04:06 97.2 73 20 162/69 (100) 94 01/05/18 03:44 69 01/05/18 00:00 81 01/04/18 22:00 75 01/04/18 21:31 96 Nasal Cannula 2.00 01/04/18 20:00 80 01/04/18 20:00 97.8 80 23 156/70 (98) 96 01/04/18 18:00 76 01/04/18 17:00 71 01/04/18 16:00 98.1 68 19 175/79 (111) 97 01/04/18 16:00 68 01/04/18 15:00 69 01/04/18 14:00 69 2/6/18 13:00 72 01/04/18 12:00 71 01/04/18 12:00 98.5 71 9 176/85 (115) 96 01/04/18 11:00 75 01/04/18 10:10 98 Nasal Cannula 2.00 01/04/18 10:00 78 (Jessica Clemons) -: 01/03/18 0425 01/05/18 0637 Physical Exam General Appearance: Well Nourished, No Acute Distress, Comfortable (Jessica Clemons) Eyes Eye Exam: Pupils Equal (Jessica Clemons) Pulmonary Resp Exam: Breath Sounds Equal, No Distress, Decreased Bases (Jessica ClemonsP) Cardiology CV Exam: Regular, Normal Sinus Rhythm (Jessica ClemonsP) Gastrointestinal/Abdomen GI Exam: Soft, Non-Tender, Bowel Sounds Present (Jessica Clemons) Genitourinary Exam: Flank Non-Tender (Jessica ClemonsP) Integumentary Skin Exam: Clear, Warm, Ulcer(s) (Jessica Clemons) Extremeties Extremities Exam: Pitting Edema (Jessica Clemons) Neurologic Neuro Exam: Alert, Awake (Jessica ClemonsP) Psychiatric Psych Exam: Appropriate Responses (Jessica Clemons) Assessment/Plan Discussed Condition With: Patient Assessment Summary: CKD Stage IV Problem List: (1) Renal insufficiency ICD Codes: N28.9 - Disorder of kidney and ureter, unspecified Plan: The patient has chronic kidney disease with proteinuria, most likely she has diabetic nephropathy BC growing Gram Positive, Staph. Coag. negative. On Vanco PO and Daptomycin Good UOP and edema improving. Weight is down. Renal US noted Creatinine slightly improved at 2.77 today fro 2.85 Plan Monitor I+O continue Aldactone, metolazone, IV lasix and albumin. Edema is improving. Avoid nephrotoxins Once the kidney function is stabilized and she can be started on RUSS inhibitor, if her potassium is normal. Follow the urine out put and BMP. (2) Leukocytosis ICD Codes: D72.829 - Elevated white blood cell count, unspecified Status: Acute (3) Hypertension ICD Codes: I10 - Essential (primary) hypertension Status: Chronic Plan: Blood pressure improving Continue Coreg, nifedipine, hydralazine, cardura, and clonidine Continue the same (4) Sepsis ICD Codes: A41.9 - Sepsis, unspecified organism Status: Acute (5) Anemia ICD Codes: D64.9 - Anemia, unspecified Status: Chronic (6) Stage 4 chronic kidney disease ICD Codes: N18.4 - Chronic kidney disease, stage 4 (severe) (Jessica Clemons) Problem List: (1) Renal insufficiency ICD Codes: N28.9 - Disorder of kidney and ureter, unspecified Plan: The patient has chronic kidney disease with proteinuria, most likely she has diabetic nephropathy BC growing Gram Positive, Staph. Coag. negative. On Vanco PO and Daptomycin Good UOP and edema improving. Weight is down. Renal US noted Creatinine slightly improved at 2.77 today fro 2.85 Plan Monitor I+O continue Aldactone, metolazone, IV lasix and albumin. Edema is improving. Avoid nephrotoxins Once the kidney function is stabilized and she can be started on RUSS inhibitor, if her potassium is normal. Follow the urine out put and BMP. Patient seen and examined, agree with above. Continue all diuretics for now. Follow the urine out put and BMP. (2) Leukocytosis ICD Codes: D72.829 - Elevated white blood cell count, unspecified Status: Acute (3) Hypertension ICD Codes: I10 - Essential (primary) hypertension Status: Chronic Plan: Blood pressure improving Continue Coreg, nifedipine, hydralazine, cardura, and clonidine Continue the same (4) Sepsis ICD Codes: A41.9 - Sepsis, unspecified organism Status: Acute (5) Anemia ICD Codes: D64.9 - Anemia, unspecified Status: Chronic (6) Stage 4 chronic kidney disease ICD Codes: N18.4 - Chronic kidney disease, stage 4 (severe) (Flavio Toro MD ) Problem Qualifiers (1) Hypertension: Qualified Codes: I10 - Essential (primary) hypertension Jessica Clemons Jan 05, 2018 09:30 Flavio Toro MD Jan 05, 2018 11:50
[2018-01-05] MEDS: VANCOMYCIN 500 MG VIAL (FOR ORAL USE ONLY) PO SCH ×4 (11:17→21:48)
[2018-01-05] MEDS: PRASUGREL 10 MG TAB PO SCH (11:18)
[2018-01-05] MEDS: SPIRONOLACTONE 25 MG TAB PO SCH (11:18)
--- NOTE | 2018-01-05 15:40 | HHI.PR ---
Subjective Remarks The patient states that her edema is improving. Denies chest pain or shortness of breath. States feels much better compared to yesterday. Blood pressure still severely elevated. Objective Vitals Vital Signs Date Time Temp Pulse Resp B/P (MAP) Pulse Ox O2 Delivery O2 Flow Rate FiO2 01/05/18 12:09 98.1 80 19 170/76 (107) 94 01/05/18 04:06 97.2 73 20 162/69 (100) 94 01/05/18 03:44 69 01/05/18 00:00 81 01/04/18 22:00 75 01/04/18 21:31 96 Nasal Cannula 2.00 01/04/18 20:00 80 01/04/18 20:00 97.8 80 23 156/70 (98) 96 01/04/18 18:00 76 01/04/18 17:00 71 01/04/18 16:00 98.1 68 19 175/79 (111) 97 01/04/18 16:00 68 I/O 01/04/18 01/04/18 01/04/18 01/05/18 01/05/18 01/05/18 07:00 15:00 23:00 07:00 15:00 23:00 Intake Total 400 ml 550 ml 100 ml Output Total 750 ml 550 ml 600 ml Balance -350 ml 0 ml -500 ml Intake Oral 400 ml 350 ml IV Total 200 ml 100 ml Output Urine Total 750 ml 550 ml 600 ml # Bowel Movements 1 1 Result Diagram: 01/03/18 0425 01/05/18 0637 Imaging Last Impressions Renal Ultrasound 01/02/18 0000 Signed Impressions: Service Date/Time: Tuesday, January 02, 2018 14:33 - CONCLUSION: Left pleural effusion with sinusitis and possible fatty liver. Ernestine King MD Head CT 12/28/17 0807 Signed Impressions: Service Date/Time: Thursday, December 28, 2017 09:04 - CONCLUSION: No acute disease. No significant change has occurred. Héctor Carmona MD Chest X-Ray 12/28/17 0000 Signed Impressions: Service Date/Time: Thursday, December 28, 2017 09:34 - CONCLUSION: By basilar opacities primarily representing effusion stable on the left diminished radiographically on the right although very prominent on CT scan this same day Héctor Carmona MD Abdomen/Pelvis CT 12/28/17 0000 Signed Impressions: Service Date/Time: Thursday, December 28, 2017 09:07 - CONCLUSION: Stable abdomen. No evidence of free air and no evidence of obstruction. Large bilateral pleural effusions with ascites and anasarca. Diverticuli uncomplicated of the colon with diminished mural thickening of the colon suggesting improving colitis. Lim catheter in place in the urinary bladder. Héctor Carmona MD Objective Remarks GENERAL: patient sitting up in bed. Appears comfortable.alert and oriented 3. SKIN: Warm and dry. HEAD: Normocephalic. EYES: No scleral icterus. No injection or drainage. NECK: Supple, trachea midline. No JVD. CARDIOVASCULAR: Regular rate and rhythm without murmurs, gallops, or rubs. RESPIRATORY: Breath sounds equal bilaterally. No accessory muscle use. GASTROINTESTINAL: Abdomen soft, non-tender, nondistended. MUSCULOSKELETAL: No cyanosis. anasarca. Dependent edema continues. No erythema. Right leg wound dressed with dressing clean and dry and intact. BACK: Nontender without obvious deformity. No CVA tenderness. Medications and IVs Current Medications Medications (Trade) Dose Ordered Sig/Marie Route Start Time Stop Time Status Last Admin (NS Flush) 2 ml UNSCH PRN IV FLUSH 12/28/17 10:45 (NS Flush) 2 ml BID IV FLUSH 12/28/17 21:00 01/05/18 09:00 (Zofran Inj) 4 mg Q6H PRN IVP 12/28/17 10:45 01/01/18 08:20 (Narcan Inj) 0.4 mg UNSCH PRN IV PUSH 12/28/17 10:45 (Milk Of Magnesia Liq) 30 ml Q12H PRN PO 12/28/17 10:45 (Senokot) 17.2 mg Q12H PRN PO 12/28/17 10:45 (Dulcolax Supp) 10 mg DAILY PRN RECTAL 12/28/17 10:45 (Lactulose Liq) 30 ml DAILY PRN PO 12/28/17 10:45 (D50w (Vial) Inj) 50 ml UNSCH PRN IV PUSH 12/28/17 10:45 01/01/18 08:38 (Glucagon Inj) 1 mg STAT PRN IM 12/28/17 10:45 (Aspirin Chew) 81 mg DAILY CHEW 12/29/17 09:00 01/05/18 09:00 (Lipitor) 40 mg HS PO 12/28/17 21:00 Future Hold 01/01/18 21:14 (Effient) 10 mg DAILY PO 12/29/17 09:00 01/05/18 11:18 (Heparin Inj) 5,000 units Q12HR SQ 12/28/17 21:00 01/05/18 09:01 ([place] 5-325 Mg) 1 tab Q6H PRN PO 12/28/17 20:45 01/04/18 01:58 Miscellaneous Information Patient in critical care unit? Ass... Q361D .XX 12/28/17 23:30 12/28/17 23:30 (Zaroxolyn) 2.5 mg BID PO 12/29/17 21:00 01/05/18 09:00 (VANCOMYCIN for oral use only) 125 mg QID PO 12/30/17 06:00 01/05/18 12:48 (Imdur) 60 mg DAILY@07 PO 12/31/17 07:00 01/05/18 06:58 (Catapres) 0.1 mg Q6H PRN PO 12/30/17 18:30 01/04/18 12:46 (Atrovent Neb) 0.5 mg Q6HR NEB PRN NEB 12/31/17 18:30 (Apresoline) 75 mg Q8HR PO 12/31/17 22:00 01/05/18 12:52 (Pill Splitter) 1 ea UNSCH PRN OTHER 12/31/17 18:45 (Procardia Xl) 30 mg Q12HR PO 01/01/18 21:00 01/05/18 09:14 (Aldactone) 12.5 mg DAILY PO 01/02/18 10:00 01/05/18 11:18 (NovoLOG SUPPLEMENTAL SCALE) 1 ACHS SLIDING SCALE SQ 01/02/18 12:00 01/05/18 12:48 Daptomycin 500 mg/ Sodium Chloride 100 ml @ 200 mls/hr Q48H IV 01/02/18 16:00 01/04/18 17:17 (Levemir Inj) 5 units Q12HR SQ 01/04/18 09:00 01/05/18 09:17 (Coreg) 6.25 mg Q12HR PO 01/04/18 21:00 01/05/18 09:14 (Cardura) 2 mg DAILY PO 01/05/18 09:00 01/05/18 09:01 Albumin Human 100 ml @ 60 mls/hr Q12H IV 01/04/18 15:00 01/05/18 03:58 (Lasix Inj) 80 mg Q12HR IV PUSH 01/04/18 21:00 01/05/18 09:15 (Cardura) 2 mg DAILY PO 01/05/18 09:00 01/05/18 09:14 Urinary Catheter: No Vascular Central Line Catheter: No A/P Problem List: (1) Sepsis ICD Code: A41.9 - Sepsis, unspecified organism Status: Resolved (2) Hypothermia ICD Code: T68.XXXA - Hypothermia, initial encounter Status: Resolved (3) Hypoglycemia ICD Code: E16.2 - Hypoglycemia, unspecified Status: Acute (4) IDDM (insulin dependent diabetes mellitus) ICD Code: E11.9 - Type 2 diabetes mellitus without complications; Z79.4 - care home (current) use of insulin Status: Chronic (5) Acute on chronic diastolic heart failure ICD Code: I50.33 - Acute on chronic diastolic (congestive) heart failure Status: Resolved (6) Severe protein-calorie malnutrition ICD Code: E43 - Unspecified severe protein-calorie malnutrition Status: Chronic (7) Bilateral pleural effusion ICD Code: J90 - Pleural effusion, not elsewhere classified Status: Acute (8) BPPV (benign paroxysmal positional vertigo) ICD Code: H81.10 - Benign paroxysmal vertigo, unspecified ear (9) CAD (coronary artery disease) ICD Code: I25.10 - Atherosclerotic heart disease of [place] coronary artery without angina pectoris Status: Chronic (10) HTN (hypertension) ICD Code: I10 - Essential (primary) hypertension Status: Chronic (11) COPD (chronic obstructive pulmonary disease) ICD Code: J44.9 - Chronic obstructive pulmonary disease, unspecified (12) Marijuana abuse ICD Code: F12.10 - Cannabis abuse, uncomplicated (13) Clostridium difficile colitis ICD Code: A04.7 - Enterocolitis due to Clostridium difficile Status: Acute (14) Anemia ICD Code: D64.9 - Anemia, unspecified Assessment and Plan sepsis Bacteremia with gram-positive bacteria. Staph epi. Questionable etiology. With hypothermia, hypoglycemia. Right leg wound. Lactate within normal limits. CT with no acute abdominal findings, however marketed bilateral pleural effusions. Right leg wound, elevated ESR in the 40s. The patient was admitted to the intensive care unit. Placed on broad-spectrum antibiotics.. Blood cultures positive for staph epidermidis. Etiology questionable. Vancomycin discontinued on 01/02 due to renal insufficiency. Repeat blood cultures negative. The patient was on IV daptomycin. 01/05 As per ID consultation and recommendations daptomycin should be administered until 01/08/18. Hypothermia Elevated TSH 10 on admission Hypothermia was treated with a bear hugger. Continue there are hugger is needed. Cortisol level and is suspected Prange. The patient was placed on IV hydrocortisone. Hypothermia improved. TSH was repeated and within normal range. Cortisol levels within suspected range. TSH elevation likely elevated due to stress and acute illness. Severe malnutrition. Patient tolerating diet. Encourage with Glucerna supplements. The patient was given IV abdomen which has been discontinued. Encourage by mouth intake. DM hypoglycemia on admission Hypoglycemia resolved after initiation of D50. The patient later became hypoglycemic and was placed on SSI with insulin. The patient then became hypoglycemic again in the 30s and Levemir was discontinued on 01/01. Blood sugars then started to improve and on 01/03 the patient's Levemir was increased to 5 minute units subcutaneously twice a day. blood sugar seems to be stable. Continue SSI and insulin Levemir. CHF exacerbation BNP 1000. Bilateral lower extremity edema. Bilateral pleural effusions. We' ll order IV Lasix. Checked monitoring of intake and output. Appreciate nursing assistance. Continue IV diuretics as per nephrology. Bilateral pleural effusions Cardiology cannot clear patient to hold Effient due to recent drug-eluting stent. Expect these are secondary to CHF. Will continue to follow. CONOR on CKD Likely secondary to diabetic nephropathy. Renal function initially worsening. Today slightly improved. Nephrology consulted. Continue Aldactone 8, metolazone, IV Lasix and albumin. Edema is improving. Continue to avoid nephrotoxins, monitor I's and O's and monitor BMP. CAD. Hypertension = Cardiology following. Appreciate assistance. Continue Effient and aspirin. 01/04 BP severely elevated with sbp in the 200's range. Increase Coreg dose to 6.25 mg po bid and start Carduram 2 mg po daily. Continue to monitor vital signs. 01/05 blood pressure still severely elevated with a systolic blood pressure in the 170s. I will increase the dose of Cardura to 4 mg p.o. daily. Continue Coreg at 6.25 mg p.o. twice daily. Benign paroxysmal postural vertigo The patient had nystagmus on exam and vertigo was resolved after Pedro maneuver. Suspect this is the cause of her intermittent nausea which leads to hypoglycemia Marijuana abuse. Cessation counseling provided. COPD. Not appear to be in acute exacerbation. Nebs as needed. C. difficile infection. Diarrhea has resolved. Continue oral vancomycin for a total of 14 days. Anemia. Likely anemia of chronic disease. Patient with CKD stage IV. Hemoglobin stable. The patient presented with hemoglobin of 10 on admission which dropped down to 8.1 and now is recovering. Last hemoglobin 8.5 on January 03, 2018. Continue to monitor H&H and transfuse as needed for hemoglobin Right leg wound. Podiatry consulted. Recommended calcium alginate with silver dressing every 3 days. Elevate legs at all times. Recommend follow-up with Dr. Read at the wound center after discharge. No baths or showers. Sponge bathe only. Discharge Planning Discharge pending nephrology clearance and improvement of acute kidney injury. Problem Qualifiers (1) Hypothermia: Qualified Codes: T68.XXXD - Hypothermia, subsequent encounter (2) BPPV (benign paroxysmal positional vertigo): Qualified Codes: H81.10 - Benign paroxysmal vertigo, unspecified ear Rommel Russell MD Jan 05, 2018 15:40
[2018-01-05] MEDS: RESP: IPRATROPIUM 0.5 MG/2.5 ML NEB NEB PRN (19:35)
[2018-01-05] MEDS: ACETAMINOPHEN/HYDROcodone 325 MG/5 MG TAB PO PRN (21:49)
[2018-01-06] VITALS (12 sets, daily range): BP systolic 144–173; BP diastolic 65–78; PULSE 65–84; RESP 18–20; TEMP 97–98.6; O2SAT 90–96
[2018-01-06] MEDS: ALBUMIN 25% INJ 100 ML IV SCH ×2 (04:05→14:31)
[2018-01-06] MEDS: ISOSORBIDE MONONITRATE 60 MG CR TAB (IMDUR) PO SCH (05:55)
[2018-01-06] MEDS: hydrALAZINE HCL 50 MG TAB PO SCH ×3 (05:55→21:25)
[2018-01-06] MEDS: RESP: IPRATROPIUM 0.5 MG/2.5 ML NEB NEB PRN ×4 (07:35→20:17)
[2018-01-06] MEDS: INSULIN ASPART SUPPLEMENTAL SCALE SQ SCH ×4 (08:00→21:00)
[2018-01-06] MEDS: SPIRONOLACTONE 25 MG TAB PO SCH (08:33)
[2018-01-06] MEDS: DOXAZOSIN MESYLATE 2 MG TAB PO SCH ×2 (08:33→08:48)
[2018-01-06] MEDS: ASPIRIN 81 MG CHEW TAB CHEW SCH (08:34)
[2018-01-06] MEDS: NIFEdipine 30 MG SUSTAINED RELEASE TAB PO SCH ×2 (08:34→21:28)
[2018-01-06] MEDS: VANCOMYCIN 500 MG VIAL (FOR ORAL USE ONLY) PO SCH ×4 (08:34→21:23)
[2018-01-06] MEDS: PRASUGREL 10 MG TAB PO SCH (08:34)
[2018-01-06] MEDS: CARVEDILOL 6.25 MG TAB PO SCH ×2 (08:34→21:25)
[2018-01-06] MEDS: SODIUM CHLORIDE 0.9% FLUSH 10 ML FLUSH IV FLUSH SCH ×2 (08:34→21:27)
[2018-01-06] MEDS: METOLAZONE 2.5 MG TAB PO SCH ×2 (08:35→21:24)
[2018-01-06] MEDS: INSULIN DETEMIR 100 UNITS/ML VIAL SQ SCH ×2 (08:35→21:00)
[2018-01-06] MEDS: HEPARIN SODIUM - SQ 10,000 UNITS/ML VIAL SQ SCH ×2 (08:35→21:25)
[2018-01-06] MEDS: FUROSEMIDE 100 MG/10 ML VIAL IV PUSH SCH ×2 (08:35→21:27)
[2018-01-06] MEDS: ACETAMINOPHEN/HYDROcodone 325 MG/5 MG TAB PO PRN ×2 (09:32→21:39)
--- NOTE | 2018-01-06 15:35 | HHI.NPPN ---
Subjective History of Present Illness This is a 67-year-old female known to me from before, has been following with me in the office with past medical history of hypertension, ischemic heart disease, congestive heart failure, diabetes mellitus, chronic obstructive pulmonary disease, chronic anemia, hyperlipidemia, chronic kidney disease, came to the hospital with low blood sugar. I was called to see the patient because of elevated BUN and creatinine. The patient has known history of chronic kidney disease. Her baseline creatinine is around 1.6-1.8. She came in with creatinine of 1.6 and it has gone up to 2.0 and 2.1. The patient was hypotensive on admission and also she has bradycardia and she was hypothermic. She is much better now, her sugar has gone up after given the D50 and she is currently sitting in the chair with nasal cannula. She has mild shortness of breath. According to her the swelling in the leg has been improving but she still has a lot of edema in the legs. She denies any headache or dizziness at present. No chest pain. She has mild cough which is mainly dry. No history of dysuria, hematuria, difficulty passing urine. Additional Remarks Patient is alert, has more SOB, no cough, not eating much today. Review of Systems Respiratory Respiratory Remarks Mild SOB Cardiovascular Cardiac Remarks Denies CP Gastrointestinal Gastrointestinal: Diarrhea Objective Data Data Vital Signs Date Time Temp Pulse Resp B/P (MAP) Pulse Ox O2 Delivery O2 Flow Rate FiO2 01/06/18 12:17 97.5 84 19 167/72 (103) 90 01/06/18 12:00 82 01/06/18 08:09 98.6 80 20 173/77 (109) 92 01/06/18 08:00 78 01/06/18 07:37 Nasal Cannula 2.00 01/06/18 06:50 98.3 80 18 144/73 (96) 96 01/06/18 03:48 65 01/06/18 00:39 98.4 82 18 156/78 (104) 96 01/05/18 23:42 71 01/05/18 21:06 98.5 84 18 181/72 (108) 95 01/05/18 19:46 84 01/05/18 19:35 93 Nasal Cannula 2.00 01/05/18 16:09 98.0 81 20 164/73 (103) 93 -: 01/03/18 0425 01/05/18 0637 Physical Exam General Appearance: Well Nourished, No Acute Distress, Comfortable Eyes Eye Exam: Pupils Equal Pulmonary Resp Exam: Breath Sounds Equal, No Distress, Decreased Bases Cardiology CV Exam: Regular, Normal Sinus Rhythm Gastrointestinal/Abdomen GI Exam: Soft, Non-Tender, Bowel Sounds Present Genitourinary Exam: Flank Non-Tender Integumentary Skin Exam: Clear, Warm, Ulcer(s) Extremeties Extremities Exam: Pitting Edema Neurologic Neuro Exam: Alert, Awake Psychiatric Psych Exam: Appropriate Responses Assessment/Plan Discussed Condition With: Patient Assessment Summary: CKD Stage IV Problem List: (1) Renal insufficiency ICD Codes: N28.9 - Disorder of kidney and ureter, unspecified Plan: The patient has chronic kidney disease with proteinuria, most likely she has diabetic nephropathy BC growing Gram Positive, Staph. Coag. negative. On Vanco PO and Daptomycin Good UOP and edema improving. Weight is down. Renal US noted Creatinine slightly improved at 2.77 today fro 2.85 Plan Monitor I+O continue Aldactone, metolazone, IV lasix and albumin. Edema is improving. Avoid nephrotoxins Once the kidney function is stabilized and she can be started on RUSS inhibitor, if her potassium is normal. Follow the urine out put and BMP. Continue all diuretics for now. CXR to see if have Pleural effusion. (2) Leukocytosis ICD Codes: D72.829 - Elevated white blood cell count, unspecified Status: Acute (3) Hypertension ICD Codes: I10 - Essential (primary) hypertension Status: Chronic Plan: Blood pressure improving Continue Coreg, nifedipine, hydralazine, cardura, and clonidine Continue the same (4) Sepsis ICD Codes: A41.9 - Sepsis, unspecified organism Status: Resolved (5) Anemia ICD Codes: D64.9 - Anemia, unspecified Status: Chronic (6) Stage 4 chronic kidney disease ICD Codes: N18.4 - Chronic kidney disease, stage 4 (severe) Problem Qualifiers (1) Hypertension: Qualified Codes: I10 - Essential (primary) hypertension Flavio Toro MD Jan 06, 2018 15:35
--- NOTE | 2018-01-06 15:56 | RADRPT ---
EXAM DATE/TIME: 01/06/2018 14:35 [facility] COMPARISON: CHEST SINGLE AP, December 28, 2017, 9:34. INDICATIONS : Short of breath. MEDICAL HISTORY : Myocardial infarction. Congestive heart failure. Hypercholesterolemia. Neuropathy. Coronary artery di sease. Anticoagulant therapy. Atrial fibrillation. COPD. Asthma. Dyspnea. Hiatal hernia. Arthritis. D iabetes. C-diff. MRSA. SURGICAL HISTORY : Tonsillectomy. Coronary artery stent. Appendectomy. Adenoidectomy. Hysterectomy. Back surgery. Gangli on cyst. ENCOUNTER: Subsequent ACUITY: 2 days PAIN SCORE: 0/10 LOCATION: Bilateral chest FINDINGS: Moderate-sized left pleural effusion is noted. Small right pleural effusion is noted. Scattered atele ctasis and/or infiltrates are noted. The heart is enlarged. Mild central vascular congestion is noted CONCLUSION: Moderate-sized left pleural effusion and small right pleural effusion. Mild central p ulmonary congestion. Cardiomegaly. Scattered atelectasis and/or infiltrates bilaterally. Linwood Chadwick MD on January 06, 2018 at 15:47 Board Certified Radiologist. This report was verified electronically.
--- NOTE | 2018-01-06 16:38 | HHI.IDPN ---
Note Infectious Disease Note Patient feels short of breath. Breathing through pursed lips. On O2 via nasal canula. Had one bowel movement today. Not loose. No other complaints. Awake and alert. Repeat blood cultures negative. Patient was admitted to the hospital with altered mental status on December 28, 2017. Blood culture taken on 12/28 has gram-positive cocci in all four bottles. The patient has a nonhealing wound of the right tibia. Consult requested for bacteremia. PAST MEDICAL HISTORY 1. COPD. 2. Hypertension. 3. Hyperlipidemia. 4. Diabetes mellitus. 5. Coronary artery disease. 6. Colitis. 7. Coronary stenting x3. 8. Hysterectomy. 9. Appendectomy. 10. Tonsillectomy. ALLERGIES PROPOXYPHENE. MEDICATIONS 1. Daptomycin. 2. Vancomycin p.o. OBJECTIVE: Vital Signs Date Time Temp Pulse Resp B/P (MAP) Pulse Ox O2 Delivery O2 Flow Rate FiO2 01/06/18 16:21 97.0 71 19 146/67 (93) 93 01/06/18 12:17 97.5 84 19 167/72 (103) 90 01/06/18 12:00 82 01/06/18 08:09 98.6 80 20 173/77 (109) 92 01/06/18 08:00 78 01/06/18 07:37 Nasal Cannula 2.00 01/06/18 06:50 98.3 80 18 144/73 (96) 96 01/06/18 03:48 65 01/06/18 00:39 98.4 82 18 156/78 (104) 96 01/05/18 23:42 71 01/05/18 21:06 98.5 84 18 181/72 (108) 95 01/05/18 19:46 84 01/05/18 19:35 93 Nasal Cannula 2.00 Laboratory Tests Test 01/05/18 06:37 Blood Urea Nitrogen 50 MG/DL Creatinine 2.77 MG/DL Random Glucose 87 MG/DL Calcium Level 8.6 MG/DL Sodium Level 140 MEQ/L Potassium Level 5.1 MEQ/L Chloride Level 109 MEQ/L Carbon Dioxide Level 25.0 MEQ/L Anion Gap 6 MEQ/L Estimat Glomerular Filtration Rate 17 ML/MIN Imaging: Chest X-Ray 01/06/18 0000 Signed Impressions: Service Date/Time: December 14:35 - CONCLUSION: Moderate-sized left pleural effusion and small right pleural effusion. Mild central pulmonary congestion. Cardiomegaly. Scattered atelectasis and/or infiltrates bilaterally. Linwood Chadwick MD Renal Ultrasound 01/02/18 0000 Signed Impressions: Service Date/Time: Tuesday, January 02, 2018 14:33 - CONCLUSION: Left pleural effusion with sinusitis and possible fatty liver. KMabel King MD Head CT 12/28/17 0807 Signed Impressions: Service Date/Time: Thursday, December 28, 2017 09:04 - CONCLUSION: No acute disease. No significant change has occurred. Héctor Carmona MD Chest X-Ray 12/28/17 0000 Signed Impressions: Service Date/Time: Thursday, December 28, 2017 09:34 - CONCLUSION: By basilar opacities primarily representing effusion stable on the left diminished radiographically on the right although very prominent on CT scan this same day Héctor Carmona MD Abdomen/Pelvis CT 12/28/17 0000 Signed Impressions: Service Date/Time: Thursday, December 28, 2017 09:07 - CONCLUSION: Stable abdomen. No evidence of free air and no evidence of obstruction. Large bilateral pleural effusions with ascites and anasarca. Diverticuli uncomplicated of the colon with diminished mural thickening of the colon suggesting improving colitis. Lim catheter in place in the urinary bladder. Héctor Carmona MD PHYSICAL EXAMINATION GENERAL: No acute distress. Awake and alert and oriented. HEENT: Head is atraumatic. Extraocular movements grossly intact, pupils reactive to light. No icterus. OROPHARYNX: Mucosa is moist. NECK: Supple without adenopathy. LUNGS: Diminished breath sounds bilateral. HEART: Regular rate and rhythm. No murmurs, rubs or gallops. ABDOMEN: Bowel sounds present, soft, no tenderness. EXTREMITIES: The right tibia has ulceration at the inner aspect distally approximately 6 cm long and approximately 3 cm wide. The extremities has 1+ pitting edema from the thigh down to the feet. SKIN: No diffuse rash. NEUROLOGIC: No gross focal findings. PSYCHIATRIC: Pleasant, calm and cooperative. IMPRESSION 1. Bacteremia with gram-positive bacteria. Staph epi, Questionable etiology. Repeat culture negative. 2. C-difficile colitis. Improving. 3. Nonhealing right tibial wound. Culture has no growth. 4. Large left pleural effusion. RECOMMENDATIONS 1. Continue Daptomycin until 01/08/18. 2. Continue vancomycin oral for C-difficile until 01/12/18 if she is not going to be on other antibiotic. 3. Follow the clinical status. Asa Hooks MD Jan 06, 2018 16:38
[2018-01-06] MEDS: DAPTOmycin INJ 500 MG in SODIUM CHLORIDE 0.9% INJ 100 ML IV SCH ×2 (16:59→18:00)
--- NOTE | 2018-01-06 18:31 | HHI.PR ---
Subjective Remarks Blood pressure very elevated this a.m. Patient complaints of shortness of breath, denies chest pain. Patient is afebrile. Objective Vitals Vital Signs Date Time Temp Pulse Resp B/P (MAP) Pulse Ox O2 Delivery O2 Flow Rate FiO2 01/06/18 16:21 97.0 71 19 146/67 (93) 93 01/06/18 16:00 72 01/06/18 12:17 97.5 84 19 167/72 (103) 90 01/06/18 12:00 82 01/06/18 08:09 98.6 80 20 173/77 (109) 92 01/06/18 08:00 78 01/06/18 07:37 Nasal Cannula 2.00 01/06/18 06:50 98.3 80 18 144/73 (96) 96 01/06/18 03:48 65 01/06/18 00:39 98.4 82 18 156/78 (104) 96 01/05/18 23:42 71 01/05/18 21:06 98.5 84 18 181/72 (108) 95 01/05/18 19:46 84 01/05/18 19:35 93 Nasal Cannula 2.00 I/O 01/05/18 01/05/18 01/05/18 01/06/18 01/06/18 01/06/18 07:00 15:00 23:00 07:00 15:00 23:00 Intake Total 100 ml 360 ml 580 ml Output Total 600 ml 1400 ml 800 ml 1750 ml Balance -500 ml -1400 ml -440 ml -1170 ml Intake Oral 360 ml 480 ml IV Total 100 ml 100 ml Output Urine Total 600 ml 1400 ml 800 ml 1750 ml # Bowel Movements 1 Result Diagram: 01/03/18 0425 01/05/18 0637 Imaging Last 72 hours Impressions Chest X-Ray 01/06/18 0000 Signed Impressions: Service Date/Time: December 14:35 - CONCLUSION: Moderate-sized left pleural effusion and small right pleural effusion. Mild central pulmonary congestion. Cardiomegaly. Scattered atelectasis and/or infiltrates bilaterally. Linwood Chadwick MD Objective Remarks GENERAL: patient sitting up in bed. Appears comfortable.alert and oriented 3. SKIN: Warm and dry. HEAD: Normocephalic. EYES: No scleral icterus. No injection or drainage. NECK: Supple, trachea midline. No JVD. CARDIOVASCULAR: Regular rate and rhythm without murmurs, gallops, or rubs. RESPIRATORY: Breath sounds equal bilaterally. No accessory muscle use. GASTROINTESTINAL: Abdomen soft, non-tender, nondistended. MUSCULOSKELETAL: No cyanosis. anasarca. Dependent edema continues. No erythema. Right leg wound dressed with dressing clean and dry and intact. BACK: Nontender without obvious deformity. No CVA tenderness. Medications and IVs Current Medications Medications (Trade) Dose Ordered Sig/Marie Route Start Time Stop Time Status Last Admin (NS Flush) 2 ml UNSCH PRN IV FLUSH 12/28/17 10:45 (NS Flush) 2 ml BID IV FLUSH 12/28/17 21:00 01/06/18 08:34 (Zofran Inj) 4 mg Q6H PRN IVP 12/28/17 10:45 01/01/18 08:20 (Narcan Inj) 0.4 mg UNSCH PRN IV PUSH 12/28/17 10:45 (Milk Of Magnesia Liq) 30 ml Q12H PRN PO 12/28/17 10:45 (Senokot) 17.2 mg Q12H PRN PO 12/28/17 10:45 (Dulcolax Supp) 10 mg DAILY PRN RECTAL 12/28/17 10:45 (Lactulose Liq) 30 ml DAILY PRN PO 12/28/17 10:45 (D50w (Vial) Inj) 50 ml UNSCH PRN IV PUSH 12/28/17 10:45 01/01/18 08:38 (Glucagon Inj) 1 mg STAT PRN IM 12/28/17 10:45 (Aspirin Chew) 81 mg DAILY CHEW 12/29/17 09:00 01/06/18 08:34 (Lipitor) 40 mg HS PO 12/28/17 21:00 Future Hold 01/01/18 21:14 (Effient) 10 mg DAILY PO 12/29/17 09:00 01/06/18 08:34 (Heparin Inj) 5,000 units Q12HR SQ 12/28/17 21:00 01/06/18 08:35 ([place] 5-325 Mg) 1 tab Q6H PRN PO 12/28/17 20:45 01/06/18 09:32 Miscellaneous Information Patient in critical care unit? Ass... Q361D .XX 12/28/17 23:30 12/28/17 23:30 (Zaroxolyn) 2.5 mg BID PO 12/29/17 21:00 01/06/18 08:35 (VANCOMYCIN for oral use only) 125 mg QID PO 12/30/17 06:00 01/06/18 17:02 (Imdur) 60 mg DAILY@07 PO 12/31/17 07:00 01/06/18 05:55 (Catapres) 0.1 mg Q6H PRN PO 12/30/17 18:30 01/04/18 12:46 (Atrovent Neb) 0.5 mg Q6HR NEB PRN NEB 12/31/17 18:30 01/06/18 12:53 (Apresoline) 75 mg Q8HR PO 12/31/17 22:00 01/06/18 12:41 (Pill Splitter) 1 ea UNSCH PRN OTHER 12/31/17 18:45 (Procardia Xl) 30 mg Q12HR PO 01/01/18 21:00 01/06/18 08:34 (Aldactone) 12.5 mg DAILY PO 01/02/18 10:00 01/06/18 08:33 (NovoLOG SUPPLEMENTAL SCALE) 1 ACHS SLIDING SCALE SQ 01/02/18 12:00 01/06/18 12:40 Daptomycin 500 mg/ Sodium Chloride 100 ml @ 200 mls/hr Q48H IV 01/02/18 16:00 01/04/18 17:17 (Levemir Inj) 5 units Q12HR SQ 01/04/18 09:00 01/06/18 08:35 (Coreg) 6.25 mg Q12HR PO 01/04/18 21:00 01/06/18 08:34 (Cardura) 2 mg DAILY PO 01/05/18 09:00 01/06/18 08:33 Albumin Human 100 ml @ 60 mls/hr Q12H IV 01/04/18 15:00 01/06/18 14:31 (Lasix Inj) 80 mg Q12HR IV PUSH 01/04/18 21:00 01/06/18 08:35 (Cardura) 2 mg DAILY PO 01/05/18 09:00 01/06/18 08:48 A/P Problem List: (1) Sepsis ICD Code: A41.9 - Sepsis, unspecified organism Status: Resolved (2) Hypothermia ICD Code: T68.XXXA - Hypothermia, initial encounter Status: Resolved (3) Hypoglycemia ICD Code: E16.2 - Hypoglycemia, unspecified Status: Acute (4) IDDM (insulin dependent diabetes mellitus) ICD Code: E11.9 - Type 2 diabetes mellitus without complications; Z79.4 - 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 (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) use of insulin Status: Chronic (5) Acute on chronic diastolic heart failure ICD Code: I50.33 - Acute on chronic diastolic (congestive) heart failure Status: Resolved (6) Severe protein-calorie malnutrition ICD Code: E43 - Unspecified severe protein-calorie malnutrition Status: Chronic (7) Bilateral pleural effusion ICD Code: J90 - Pleural effusion, not elsewhere classified Status: Acute (8) BPPV (benign paroxysmal positional vertigo) ICD Code: H81.10 - Benign paroxysmal vertigo, unspecified ear (9) CAD (coronary artery disease) ICD Code: I25.10 - Atherosclerotic heart disease of [place] coronary artery without angina pectoris Status: Chronic (10) HTN (hypertension) ICD Code: I10 - Essential (primary) hypertension Status: Chronic (11) COPD (chronic obstructive pulmonary disease) ICD Code: J44.9 - Chronic obstructive pulmonary disease, unspecified (12) Marijuana abuse ICD Code: F12.10 - Cannabis abuse, uncomplicated (13) Clostridium difficile colitis ICD Code: A04.7 - Enterocolitis due to Clostridium difficile Status: Resolved (14) Anemia ICD Code: D64.9 - Anemia, unspecified Assessment and Plan sepsis Bacteremia with gram-positive bacteria. Staph epi. Questionable etiology. With hypothermia, hypoglycemia. Right leg wound. Lactate within normal limits. CT with no acute abdominal findings, however marketed bilateral pleural effusions. Right leg wound, elevated ESR in the 40s. The patient was admitted to the intensive care unit. Placed on broad-spectrum antibiotics.. Blood cultures positive for staph epidermidis. Etiology questionable. Vancomycin discontinued on 01/02 due to renal insufficiency. Repeat blood cultures negative. The patient was on IV daptomycin. As per ID consultation and recommendations daptomycin should be administered until 01/08/18. Hypothermia Elevated TSH 10 on admission Hypothermia was treated with a bear hugger. Continue there are hugger is needed. Cortisol level and is suspected Prange. The patient was placed on IV hydrocortisone. Hypothermia improved. TSH was repeated and within normal range. Cortisol levels within suspected range. TSH elevation likely elevated due to stress and acute illness. Severe malnutrition. Patient tolerating diet. Encourage with Glucerna supplements. The patient was given IV abdomen which has been discontinued. Encourage by mouth intake. DM hypoglycemia on admission Hypoglycemia resolved after initiation of D50. The patient later became hypoglycemic and was placed on SSI with insulin. The patient then became hypoglycemic again in the 30s and Levemir was discontinued on 01/01. Blood sugars then started to improve and on 01/03 the patient's Levemir was increased to 5 minute units subcutaneously twice a day. blood sugar seems to be stable. Continue SSI and insulin Levemir. CHF exacerbation BNP 1000. Bilateral lower extremity edema. Bilateral pleural effusions. We' ll order IV Lasix. Checked monitoring of intake and output. Appreciate nursing assistance. Continue IV diuretics as per nephrology. Bilateral pleural effusions Cardiology cannot clear patient to hold Effient due to recent drug-eluting stent. Expect these are secondary to CHF. Will continue to follow. 01/06 patient complains of shortness of breath, repeat chest x-ray shows increased bilateral pleural effusions mostly on the left. Discussed case with Dr Reddy - Effient should be discontinued only on life threatening situations. Will order us guided thoracentesis, this was discussed with pulmonology as well. CONOR on CKD Likely secondary to diabetic nephropathy. Renal function initially worsening. Today slightly improved. Nephrology consulted. Continue Aldactone 8, metolazone, IV Lasix and albumin. Edema is improving. Continue to avoid nephrotoxins, monitor I's and O's and monitor BMP. CAD. Hypertension = Cardiology following. Appreciate assistance. Continue Effient and aspirin. 01/04 BP severely elevated with sbp in the 200's range. Increase Coreg dose to 6.25 mg po bid and start Carduram 2 mg po daily. Continue to monitor vital signs. 01/05 blood pressure still severely elevated with a systolic blood pressure in the 170s. I will increase the dose of Cardura to 4 mg p.o. daily. Continue Coreg at 6.25 mg p.o. twice daily. 01/06 blood pressure very elevated this a.m., however more stable now. Benign paroxysmal postural vertigo The patient had nystagmus on exam and vertigo was resolved after Pedro maneuver. Suspect this is the cause of her intermittent nausea which leads to hypoglycemia Marijuana abuse. Cessation counseling provided. COPD. Not appear to be in acute exacerbation. Nebs as needed. C. difficile infection. Diarrhea has resolved. Continue oral vancomycin for a total of 14 days. Anemia. Likely anemia of chronic disease. Patient with CKD stage IV. Hemoglobin stable. The patient presented with hemoglobin of 10 on admission which dropped down to 8.1 and now is recovering. Last hemoglobin 8.5 on January 03, 2018. Continue to monitor H&H and transfuse as needed for hemoglobin Right leg wound. Podiatry consulted. Recommended calcium alginate with silver dressing every 3 days. Elevate legs at all times. Recommend follow-up with Dr. Read at the wound center after discharge. No baths or showers. Sponge bathe only. Shortness of breath The patient is complaining of shortness of breath. Chest x-ray ordered to evaluate. Repeat chest x-ray reviewed by me shows moderate sized left pleural effusion and small right pleural effusion. Mild central pulmonary congestion. Cardiomegaly. Scattered atelectasis and/or infiltrates bilaterally. I will order an ultrasound-guided thoracentesis. As per cardiology - She had drug eluting stent in Jun 2017; Effient and ASA cannot be stopped unless life threatening emergency occur for 1 year. High risk of stent thrombosis off meds. We will consult pulmonology. Called and discussed the case with Dr. Blankenship who stated will see the patient. Discharge Planning Discharge pending nephrology clearance and improvement of acute kidney injury. Problem Qualifiers (1) Hypothermia: Qualified Codes: T68.XXXD - Hypothermia, subsequent encounter (2) BPPV (benign paroxysmal positional vertigo): Qualified Codes: H81.10 - Benign paroxysmal vertigo, unspecified ear Rommel Russell MD Jan 06, 2018 18:31
[2018-01-07] VITALS (9 sets, daily range): BP systolic 97–157; BP diastolic 50–67; PULSE 68–80; RESP 18–20; TEMP 97.4–98.6; O2SAT 89–94
[2018-01-07] MEDS: RESP: IPRATROPIUM 0.5 MG/2.5 ML NEB NEB PRN ×2 (01:59→09:11)
[2018-01-07] MEDS: ACETAMINOPHEN/HYDROcodone 325 MG/5 MG TAB PO PRN ×3 (03:32→21:15)
[2018-01-07] MEDS: ISOSORBIDE MONONITRATE 60 MG CR TAB (IMDUR) PO SCH (06:07)
[2018-01-07] MEDS: hydrALAZINE HCL 50 MG TAB PO SCH ×3 (06:08→21:15)
[2018-01-07] MEDS: INSULIN ASPART SUPPLEMENTAL SCALE SQ SCH ×4 (08:00→21:00)
[2018-01-07] MEDS: HEPARIN SODIUM - SQ 10,000 UNITS/ML VIAL SQ SCH ×2 (09:00→21:17)
[2018-01-07] MEDS: DOXAZOSIN MESYLATE 2 MG TAB PO SCH ×2 (09:03→09:04)
[2018-01-07] MEDS: ASPIRIN 81 MG CHEW TAB CHEW SCH (09:04)
[2018-01-07] MEDS: SPIRONOLACTONE 25 MG TAB PO SCH (09:04)
[2018-01-07] MEDS: FUROSEMIDE 100 MG/10 ML VIAL IV PUSH SCH ×2 (09:05→21:16)
[2018-01-07] MEDS: NIFEdipine 30 MG SUSTAINED RELEASE TAB PO SCH ×2 (09:05→21:17)
[2018-01-07] MEDS: CARVEDILOL 6.25 MG TAB PO SCH ×2 (09:05→21:17)
[2018-01-07] MEDS: VANCOMYCIN 500 MG VIAL (FOR ORAL USE ONLY) PO SCH (09:05)
[2018-01-07] MEDS: SODIUM CHLORIDE 0.9% FLUSH 10 ML FLUSH IV FLUSH SCH ×2 (09:06→21:00)
[2018-01-07] MEDS: PRASUGREL 10 MG TAB PO SCH (09:06)
[2018-01-07] MEDS: INSULIN DETEMIR 100 UNITS/ML VIAL SQ SCH ×2 (09:06→21:00)
[2018-01-07] MEDS: METOLAZONE 2.5 MG TAB PO SCH ×2 (09:06→21:00)
--- NOTE | 2018-01-07 09:30 | MB ---
cc: OSORIO ESPARZA DATE OF CONSULTATION 01/06/[address] Valladares. REASON FOR CONSULTATION Shortness of breath and pleural effusion. HISTORY OF PRESENT ILLNESS Ms. Maynard is a 67-year-old female known to me from the previous admission with a history of COPD, coronary artery disease, congestive heart failure, diabetes mellitus, chronic kidney disease. The patient was initially admitted by Dr. Garcia with altered mental status which has cleared now. She was also found to have natremia and has C. diff colitis. The patient complains of shortness of breath. She had a chest x-ray done which shows moderate left pleural effusion. She denies any chest pain. No fevers, no night sweats. PAST MEDICAL HISTORY Significant for - 1. History of coronary artery disease. 2. Congestive heart failure. 3. Recent and drug-eluting stent. 4. Hypertension. 5. Chronic kidney disease. 6. COPD. 7. C. diff colitis. MEDICATIONS She is currently taking - 1. Doxazosin 2 mg a day. 2. Coreg 6.25 mg q.12 hours. 3. Lasix 80 mg q. 12-hours. 4. Albumin IV q. 12-hours. 5. Insulin 5 units q. 12-hours. 6. Daptomycin q.48 hours. 7. Spironolactone 12.5 mg. 8. Nifedipine 30 mg per day. 9. Hydralazine 75 mg q. 8-hours. 10. Ipratropium nebulizer treatment. 11. Imdur 60 mg. 12. Clonidine 0.1 mg a day. 13. Vancomycin p.o. 125 mg four times a day. 14. Metolazone 2.5 mg twice a day. 15. Effient 10 mg daily. 16. Heparin 5000 q. 12-hour. ALLERGIES PROPOXYPHENE. SOCIAL HISTORY [facility]. No history of smoking or alcohol abuse. FAMILY HISTORY Noncontributory. REVIEW OF SYSTEMS She complains of increased shortness of breath and states that she cannot breathe. Denies any chest pain. No headache or dizziness. No DVT or pulmonary embolism. PHYSICAL EXAMINATION GENERAL: An obese, elderly female, short of breath. VITAL SIGNS: Blood pressure 146/67, heart rate 71, respirations 19, temperature 97, saturation 93% with supplemental oxygen. HEENT: Examination unremarkable. NECK: Supple. JVP not raised. CHEST: Decreased breath sounds at the left base, dull percussion note. CV: S1 and S2 is normal. ABDOMEN: Benign. EXTREMITIES: 1+ pedal edema. IMPRESSION 1. Moderate-sized pleural effusion. 2. Increased dyspnea. 3. Coronary disease status post drug-eluting stent. 4. Chronic kidney disease. 5. CHF. 6. Coronary artery disease. PLAN I discussed with the patient. She says that she cannot breathe and wants to proceed with thoracentesis. She is on Effient. Dr. Reddy feels that the patient cannot come off from Effient because of her drug-eluting stent. The patient understands that she is at high risk of bleeding but she says that she had thoracentesis done before while she was on Effient and did not have any complication. I explained to her that the fact that she did not have bleeding before does not guarantee that she will not have bleeding on the second procedure. However, since she feels short of breath and wants to take the chance, I want to proceed with it. We ill consult interventional radiology for ultrasound-guided thoracentesis. The patient does understand the risk of significant bleeding to the extent of requiring chest tube and support with blood transfusion if needed. Supplemental oxygen. She is being diuresed. Monitor electrolytes. Further treatment will depend on her course in the hospital. Thank you Dr. Valladares for this consult. MD TRUPTI Fishman/DANIEL /8:05 PM /8:34 AM
--- NOTE | 2018-01-07 09:57 | HHI.NPPN ---
Subjective History of Present Illness This is a 67-year-old female known to me from before, has been following with me in the office with past medical history of hypertension, ischemic heart disease, congestive heart failure, diabetes mellitus, chronic obstructive pulmonary disease, chronic anemia, hyperlipidemia, chronic kidney disease, came to the hospital with low blood sugar. I was called to see the patient because of elevated BUN and creatinine. The patient has known history of chronic kidney disease. Her baseline creatinine is around 1.6-1.8. She came in with creatinine of 1.6 and it has gone up to 2.0 and 2.1. The patient was hypotensive on admission and also she has bradycardia and she was hypothermic. She is much better now, her sugar has gone up after given the D50 and she is currently sitting in the chair with nasal cannula. She has mild shortness of breath. According to her the swelling in the leg has been improving but she still has a lot of edema in the legs. She denies any headache or dizziness at present. No chest pain. She has mild cough which is mainly dry. No history of dysuria, hematuria, difficulty passing urine. Additional Remarks Patient is alert, still has SOB, getting nebulizer now. Review of Systems Respiratory Respiratory Remarks Mild SOB Cardiovascular Cardiac Remarks Denies CP Gastrointestinal Gastrointestinal: Diarrhea Objective Data Data Vital Signs Date Time Temp Pulse Resp B/P (MAP) Pulse Ox O2 Delivery O2 Flow Rate FiO2 01/07/18 08:00 98.6 80 20 134/62 (86) 89 01/07/18 08:00 89 Nasal Cannula 3.00 01/07/18 04:05 75 01/07/18 04:00 97.8 79 18 139/61 (87) 94 01/07/18 04:00 Nasal Cannula 3.00 Humidified 01/07/18 00:00 Nasal Cannula 2.00 Humidified 01/07/18 00:00 97.8 76 18 157/65 (95) 90 01/06/18 23:50 71 01/06/18 21:00 97.6 78 18 146/65 (92) 91 01/06/18 20:18 Nasal Cannula 2.00 01/06/18 20:00 74 01/06/18 20:00 Nasal Cannula 2.00 Humidified 01/06/18 16:21 97.0 71 19 146/67 (93) 93 01/06/18 16:00 72 01/06/18 12:17 97.5 84 19 167/72 (103 90 01/06/18 12:00 82 -: 01/03/18 0425 01/05/18 0637 Physical Exam General Appearance: Well Nourished, No Acute Distress, Comfortable Eyes Eye Exam: Pupils Equal Pulmonary Resp Exam: Breath Sounds Equal, No Distress, Decreased Bases Cardiology CV Exam: Regular, Normal Sinus Rhythm Gastrointestinal/Abdomen GI Exam: Soft, Non-Tender, Bowel Sounds Present Genitourinary Exam: Flank Non-Tender Integumentary Skin Exam: Clear, Warm, Ulcer(s) Extremeties Extremities Exam: Pitting Edema Neurologic Neuro Exam: Alert, Awake Psychiatric Psych Exam: Appropriate Responses Assessment/Plan Discussed Condition With: Patient Assessment Summary: CKD Stage IV Problem List: (1) Renal insufficiency ICD Codes: N28.9 - Disorder of kidney and ureter, unspecified Plan: The patient has chronic kidney disease with proteinuria, most likely she has diabetic nephropathy BC growing Gram Positive, Staph. Coag. negative. On Vanco PO and Daptomycin Good UOP and edema improving. Weight is down. Renal US noted Creatinine slightly improved at 2.77 today fro 2.85 Plan Monitor I+O continue Aldactone, metolazone, IV lasix and albumin. Edema is improving. Avoid nephrotoxins Once the kidney function is stabilized and she can be started on RUSS inhibitor, if her potassium is normal. Continue all diuretics for now. CXR noted , has Pleural effusion. Possible Thoracentesis on left side. (2) Leukocytosis ICD Codes: D72.829 - Elevated white blood cell count, unspecified Status: Acute (3) Hypertension ICD Codes: I10 - Essential (primary) hypertension Status: Chronic Plan: Blood pressure improving Continue Coreg, nifedipine, hydralazine, cardura, and clonidine Continue the same (4) Sepsis ICD Codes: A41.9 - Sepsis, unspecified organism Status: Resolved (5) Anemia ICD Codes: D64.9 - Anemia, unspecified Status: Chronic (6) Stage 4 chronic kidney disease ICD Codes: N18.4 - Chronic kidney disease, stage 4 (severe) Problem Qualifiers (1) Hypertension: Qualified Codes: I10 - Essential (primary) hypertension Flavio Toro MD Jan 07, 2018 09:57
[2018-01-07] MEDS ORDERED: VANCOMYCIN ORAL SOLUTION 25MG/ML PO SCH (13:00)
--- NOTE | 2018-01-07 14:18 | RADRPT ---
EXAM DATE/TIME: 01/07/2018 14:01 [facility] COMPARISON: CHEST SINGLE AP, January 06, 2018, 14:35. INDICATIONS : Status post left thoracentesis. MEDICAL HISTORY : Chronic obstructive pulmonary disease. Congestive heart failure. Coronary artery disease. SURGICAL HISTORY : Appendectomy. Hysterectomy. Coronary artery stent. Tonsillectomy. ENCOUNTER: Subsequent ACUITY: 1 week PAIN SCORE: 0/10 LOCATION: Left chest FINDINGS: Bilateral pleural effusions persist. Some decrease in pleural fluid on the left. Hazy basilar parench ymal opacity is exacerbated by expiratory technique. Visualized cardiac contours are grossly stable. There is no evidence of pneumothorax. CONCLUSION: No pneumothorax Rafa Gates MD on January 07, 2018 at 14:13 Board Certified Radiologist. This report was verified electronically.
[2018-01-07] MEDS ORDERED: LIDOCAINE HCL 1% 20 ML VIAL ONE (14:41)
--- NOTE | 2018-01-07 14:41 | HHI.PR ---
Subjective Remarks The patient was seen earlier at 11:45 AM. Patient c/o sob. Afebrile. Objective Vitals Vital Signs Date Time Temp Pulse Resp B/P (MAP) Pulse Ox O2 Delivery O2 Flow Rate FiO2 01/07/18 12:00 97.9 74 20 123/66 (85) 90 01/07/18 08:00 Nasal Cannula 3.00 01/07/18 08:00 98.6 80 20 134/62 (86) 89 01/07/18 08:00 80 01/07/18 08:00 89 Nasal Cannula 3.00 01/07/18 04:05 75 01/07/18 04:00 97.8 79 18 139/61 (87) 94 01/07/18 04:00 Nasal Cannula 3.00 Humidified 01/07/18 00:00 Nasal Cannula 2.00 Humidified 01/07/18 00:00 97.8 76 18 157/65 (95) 90 01/06/18 23:50 71 01/06/18 21:00 97.6 78 18 146/65 (92) 91 01/06/18 20:18 Nasal Cannula 2.00 01/06/18 20:00 74 01/06/18 20:00 Nasal Cannula 2.00 Humidified 01/06/18 16:21 97.0 71 19 146/67 (93) 93 01/06/18 16:00 72 I/O 01/06/18 01/06/18 01/06/18 01/07/18 01/07/18 01/07/18 07:00 15:00 23:00 07:00 15:00 23:00 Intake Total 580 ml 720 ml Output Total 1750 ml 1100 ml 1400 ml Balance -1170 ml -380 ml -1400 ml Intake Oral 480 ml 720 ml IV Total 100 ml Output Urine Total 1750 ml 1100 ml 1400 ml # Bowel Movements 1 Result Diagram: 01/03/18 0425 01/05/18 0637 Imaging Last Impressions Chest X-Ray 01/07/18 0000 Signed Impressions: Service Date/Time: Sunday, January 07, 2018 14:01 - CONCLUSION: No pneumothorax Rafa Gates MD Renal Ultrasound 01/02/18 0000 Signed Impressions: Service Date/Time: Tuesday, January 02, 2018 14:33 - CONCLUSION: Left pleural effusion with sinusitis and possible fatty liver. K. Mahad King MD Head CT 12/28/17 0807 Signed Impressions: Service Date/Time: Thursday, December 28, 2017 09:04 - CONCLUSION: No acute disease. No significant change has occurred. Héctor Carmona MD Abdomen/Pelvis CT 12/28/17 0000 Signed Impressions: Service Date/Time: Thursday, December 28, 2017 09:07 - CONCLUSION: Stable abdomen. No evidence of free air and no evidence of obstruction. Large bilateral pleural effusions with ascites and anasarca. Diverticuli uncomplicated of the colon with diminished mural thickening of the colon suggesting improving colitis. Lim catheter in place in the urinary bladder. Héctor Carmona MD Objective Remarks GENERAL: patient sitting up in bed. Appears comfortable.alert and oriented 3. SKIN: Warm and dry. HEAD: Normocephalic. EYES: No scleral icterus. No injection or drainage. NECK: Supple, trachea midline. No JVD. CARDIOVASCULAR: Regular rate and rhythm without murmurs, gallops, or rubs. RESPIRATORY: Breath sounds equal bilaterally. No accessory muscle use. GASTROINTESTINAL: Abdomen soft, non-tender, nondistended. MUSCULOSKELETAL: No cyanosis. anasarca. Dependent edema continues. No erythema. Right leg wound dressed with dressing clean and dry and intact. BACK: Nontender without obvious deformity. No CVA tenderness. Medications and IVs Current Medications Medications (Trade) Dose Ordered Sig/Marie Route Start Time Stop Time Status Last Admin (NS Flush) 2 ml UNSCH PRN IV FLUSH 12/28/17 10:45 (NS Flush) 2 ml BID IV FLUSH 12/28/17 21:00 01/07/18 09:06 (Zofran Inj) 4 mg Q6H PRN IVP 12/28/17 10:45 01/01/18 08:20 (Narcan Inj) 0.4 mg UNSCH PRN IV PUSH 12/28/17 10:45 (Milk Of Magnesia Liq) 30 ml Q12H PRN PO 12/28/17 10:45 (Senokot) 17.2 mg Q12H PRN PO 12/28/17 10:45 (Dulcolax Supp) 10 mg DAILY PRN RECTAL 12/28/17 10:45 (Lactulose Liq) 30 ml DAILY PRN PO 12/28/17 10:45 (D50w (Vial) Inj) 50 ml UNSCH PRN IV PUSH 12/28/17 10:45 01/01/18 08:38 (Glucagon Inj) 1 mg STAT PRN IM 12/28/17 10:45 (Aspirin Chew) 81 mg DAILY CHEW 12/29/17 09:00 01/07/18 09:04 (Lipitor) 40 mg HS PO 12/28/17 21:00 Future Hold 01/01/18 21:14 (Effient) 10 mg DAILY PO 12/29/17 09:00 01/07/18 09:06 (Heparin Inj) 5,000 units Q12HR SQ 12/28/17 21:00 01/06/18 21:25 (Mon[place]uma 5-325 Mg) 1 tab Q6H PRN PO 12/28/17 20:45 01/07/18 09:35 Miscellaneous Information Patient in critical care unit? Ass... Q361D .XX 12/28/17 23:30 12/28/17 23:30 (Zaroxolyn) 2.5 mg BID PO 12/29/17 21:00 01/07/18 09:06 (Imdur) 60 mg DAILY@07 PO 12/31/17 07:00 01/07/18 06:07 (Catapres) 0.1 mg Q6H PRN PO 12/30/17 18:30 01/04/18 12:46 (Atrovent Neb) 0.5 mg Q6HR NEB PRN NEB 12/31/17 18:30 01/07/18 09:11 (Apresoline) 75 mg Q8HR PO 12/31/17 22:00 01/07/18 06:08 (Pill Splitter) 1 ea UNSCH PRN OTHER 12/31/17 18:45 (Procardia Xl) 30 mg Q12HR PO 01/01/18 21:00 01/07/18 09:05 (Aldactone) 12.5 mg DAILY PO 01/02/18 10:00 01/07/18 09:04 (NovoLOG SUPPLEMENTAL SCALE) 1 ACHS SLIDING SCALE SQ 01/02/18 12:00 01/06/18 12:40 Daptomycin 500 mg/ Sodium Chloride 100 ml @ 200 mls/hr Q48H IV 01/02/18 16:00 01/06/18 18:00 (Levemir Inj) 5 units Q12HR SQ 01/04/18 09:00 01/07/18 09:06 (Coreg) 6.25 mg Q12HR PO 01/04/18 21:00 01/07/18 09:05 (Cardura) 2 mg DAILY PO 01/05/18 09:00 01/07/18 09:03 (Lasix Inj) 80 mg Q12HR IV PUSH 01/04/18 21:00 01/07/18 09:05 (Cardura) 2 mg DAILY PO 01/05/18 09:00 01/07/18 09:04 (Vancomycin 25 Mg/ml Liq) 250 mg QID PO 01/07/18 18:00 A/P Problem List: (1) Sepsis ICD Code: A41.9 - Sepsis, unspecified organism Status: Resolved (2) Hypothermia ICD Code: T68.XXXA - Hypothermia, initial encounter Status: Resolved (3) Hypoglycemia ICD Code: E16.2 - Hypoglycemia, unspecified Status: Acute (4) IDDM (insulin dependent diabetes mellitus) ICD Code: E11.9 - Type 2 diabetes mellitus without complications; Z79.4 - correction (current) use of insulin Status: Chronic (5) Acute on chronic diastolic heart failure ICD Code: I50.33 - Acute on chronic diastolic (congestive) heart failure Status: Resolved (6) Severe protein-calorie malnutrition ICD Code: E43 - Unspecified severe protein-calorie malnutrition Status: Chronic (7) Bilateral pleural effusion ICD Code: J90 - Pleural effusion, not elsewhere classified Status: Acute (8) BPPV (benign paroxysmal positional vertigo) ICD Code: H81.10 - Benign paroxysmal vertigo, unspecified ear (9) CAD (coronary artery disease) ICD Code: I25.10 - Atherosclerotic heart disease of telida coronary artery without angina pectoris Status: Chronic (10) HTN (hypertension) ICD Code: I10 - Essential (primary) hypertension Status: Chronic (11) COPD (chronic obstructive pulmonary disease) ICD Code: J44.9 - Chronic obstructive pulmonary disease, unspecified (12) Marijuana abuse ICD Code: F12.10 - Cannabis abuse, uncomplicated (13) Clostridium difficile colitis ICD Code: A04.7 - Enterocolitis due to Clostridium difficile Status: Resolved (14) Anemia ICD Code: D64.9 - Anemia, unspecified Assessment and Plan sepsis Bacteremia with gram-positive bacteria. Staph epi. Questionable etiology. With hypothermia, hypoglycemia. Right leg wound. Lactate within normal limits. CT with no acute abdominal findings, however marketed bilateral pleural effusions. Right leg wound, elevated ESR in the 40s. The patient was admitted to the intensive care unit. Placed on broad-spectrum antibiotics.. Blood cultures positive for staph epidermidis. Etiology questionable. Vancomycin discontinued on 01/02 due to renal insufficiency. Repeat blood cultures negative. The patient was on IV daptomycin. As per ID consultation and recommendations daptomycin should be administered until 01/08/18. Hypothermia Elevated TSH 10 on admission Hypothermia was treated with a bear hugger. Continue there are hugger is needed. Cortisol level and is suspected Prange. The patient was placed on IV hydrocortisone. Hypothermia improved. TSH was repeated and within normal range. Cortisol levels within suspected range. TSH elevation likely elevated due to stress and acute illness. Severe malnutrition. Patient tolerating diet. Encourage with Glucerna supplements. The patient was given IV abdomen which has been discontinued. Encourage by mouth intake. DM hypoglycemia on admission Hypoglycemia resolved after initiation of D50. The patient later became hypoglycemic and was placed on SSI with insulin. The patient then became hypoglycemic again in the 30s and Levemir was discontinued on 01/01. Blood sugars then started to improve and on 01/03 the patient's Levemir was increased to 5 minute units subcutaneously twice a day. 2 phosphorus 7 blood sugar seems to be stable. Continue SSI and insulin Levemir. CHF exacerbation BNP 1000. Bilateral lower extremity edema. Bilateral pleural effusions. We' ll order IV Lasix. Checked monitoring of intake and output. Appreciate nursing assistance. Continue IV diuretics as per nephrology. Bilateral pleural effusions Cardiology cannot clear patient to hold Effient due to recent drug-eluting stent. Expect these are secondary to CHF. Will continue to follow. 01/06 patient complains of shortness of breath, repeat chest x-ray shows increased bilateral pleural effusions mostly on the left. Discussed case with Dr Reddy - Effient should be discontinued only on life threatening situations. Will order us guided thoracentesis, this was discussed with pulmonology as well. 01/07 discussed the case with Dr Chadwick from radiology, the patient is short of breath with enlarging pleural effusion despite being on IV diuretics. The patient wishes to proceed with drainage of pleural effusion despite the risk of bleeding. Dr. Jules agreed and thoracentesis will be done. Appreciate pulmonary recommendations. CONOR on CKD Likely secondary to diabetic nephropathy. Renal function initially worsening. Today slightly improved. Nephrology consulted. Continue Aldactone 8, metolazone, IV Lasix and albumin. Edema is improving. Continue to avoid nephrotoxins, monitor I's and O's and monitor BMP. CAD. Hypertension = Cardiology following. Appreciate assistance. Continue Effient and aspirin. 01/04 BP severely elevated with sbp in the 200's range. Increase Coreg dose to 6.25 mg po bid and start Carduram 2 mg po daily. Continue to monitor vital signs. 2 blood pressure still severely elevated with a systolic blood pressure in the 170s. I will increase the dose of Cardura to 4 mg p.o. daily. Continue Coreg at 6.25 mg p.o. twice daily. 01/06 blood pressure very elevated this a.m., however more stable now. Benign paroxysmal postural vertigo The patient had nystagmus on exam and vertigo was resolved after Pedro maneuver. Suspect this is the cause of her intermittent nausea which leads to hypoglycemia Marijuana abuse. Cessation counseling provided. COPD. Not appear to be in acute exacerbation. Nebs as needed. C. difficile infection. Diarrhea has resolved. Continue oral vancomycin for a total of 14 days. Anemia. Likely anemia of chronic disease. Patient with CKD stage IV. Hemoglobin stable. The patient presented with hemoglobin of 10 on admission which dropped down to 8.1 and now is recovering. Last hemoglobin 8.5 on January 03, 2018. Continue to monitor H&H and transfuse as needed for hemoglobin Right leg wound. Podiatry consulted. Recommended calcium alginate with silver dressing every 3 days. Elevate legs at all times. Recommend follow-up with Dr. Read at the wound center after discharge. No baths or showers. Sponge bathe only. Shortness of breath The patient is complaining of shortness of breath. Chest x-ray ordered to evaluate. Repeat chest x-ray reviewed by me shows moderate sized left pleural effusion and small right pleural effusion. Mild central pulmonary congestion. Cardiomegaly. Scattered atelectasis and/or infiltrates bilaterally. I will order an ultrasound-guided thoracentesis. As per cardiology - She had drug eluting stent in Jun 2017; Effient and ASA cannot be stopped unless life threatening emergency occur for 1 year. High risk of stent thrombosis off meds. appreciate pulomnary recommendations. Discharge Planning pending improvement of CONOR. Patient for ultrasound-guided thoracentesis today. Problem Qualifiers (1) Hypothermia: Qualified Codes: T68.XXXD - Hypothermia, subsequent encounter (2) BPPV (benign paroxysmal positional vertigo): Qualified Codes: H81.10 - Benign paroxysmal vertigo, unspecified ear Rommel Russell MD Jan 07, 2018 14:41
[2018-01-07] MEDS: VANCOMYCIN 25 MG/ML SUSP 100 ML BOTTLE PO SCH ×3 (14:54→21:00)
--- NOTE | 2018-01-07 15:05 | RADRPT ---
EXAM DATE/TIME: 01/07/2018 13:11 [facility] COMPARISON: US GUIDED THORACENTESIS LEFT, October 03, 2017, 17:07. INDICATIONS : Left pleural effusion. MEDICAL HISTORY : Myocardial infarction. Congestive heart failure. Hypercholesterolemia. Dentures. Neuropathy. Coronary artery disease. Anticoagulant therapy. Atrial fibrillation. COPD. Asthma. Dyspnea. Hiatal hernia. Ar thritis. Diabetes. C-diff. MRSA. SURGICAL HISTORY : Tonsillectomy. Coronary artery stent. Appendectomy. Adenoidectomy. Hysterectomy. Back surgery. Gangli on cyst. ENCOUNTER: Subsequent ACUITY: 1 day PAIN SCORE: 4/10 LOCATION: Left chest FLUID: Total volume of 800 cc of clear, yellow fluid was removed. Fluid was sent to lab for ordered studies. TECHNIQUE: 1. Ultrasound guidance for thoracentesis. 2. Thoracentesis. The risks, benefits, and alternatives to ultrasound guided thoracentesis were explained to the patien t in lay simple terms, including the risk of bleeding and infection. Written and verbal informed con sent was obtained. Appropriate area for thoracentesis was marked under ultrasound guidance with the patient in the uprig ht position. Overlying skin was prepped and draped in the usual sterile fashion and with local anest hetic, a dermatotomy was made with an 11 blade scalpel. A 6 Lao thoracentesis catheter was placed in the pleural space and fluid was removed. Catheter was then removed and a sterile dressing applie d. There were no immediate complications. The patient tolerated the procedure well and the left the ultrasound suite in stable condition. Chest radiograph is to be obtained. CONCLUSION: Uncomplicated ultrasound guided thoracentesis. Linwood Chadwick MD on January 07, 2018 at 15:02 Board Certified Radiologist. This report was verified electronically.
[2018-01-07 15:07] LABS: TOTAL PROTEIN,PLEURAL FLUID 1.5 GM/DL
[2018-01-07 15:52] LABS: PLEURAL FLUID WBC 115 /MM3 (0-10)
[2018-01-07 15:53] LABS: PLEURAL FLUID BASO 1 %; PLEURAL FLUID HISTIOCYTES 5 %; PLEURAL FLUID LYMPHS 55 %; PLEURAL FLUID MONOS 18 %; PLEURAL FLUID POLYS (SEGS) 21 %; PLEURAL FLUID RBC 76 /MM3 (0-0)
[2018-01-07 18:29] LABS: BASOPHIL # 0.1 TH/MM3 (0-0.2); BASOPHIL % 1.2 % (0.0-2.0); EOSINOPHIL # 0.1 TH/MM3 (0-0.4); EOSINOPHIL % 1.7 % (0.0-4.0); HEMATOCRIT 22.5 % (35.0-46.0); HEMOGLOBIN 7.5 GM/DL (11.6-15.3); LYMPH % 18.1 % (9.0-44.0); MEAN CELL VOLUME 90.1 FL (80.0-100.0); MEAN CORPUSCULAR HEMOGLOBIN 30.1 PG (27.0-34.0); MEAN CORPUSCULAR HGB CONC 33.5 % (32.0-36.0); MEAN PLATELET VOLUME 8.3 FL (7.0-11.0); MONO % 7.7 % (0.0-8.0); MONOCYTE # 0.4 TH/MM3 (0-0.9); NEUT % 71.3 % (16.0-70.0); PLATELET COUNT 226 TH/MM3 (150-450); RED CELL DISTRIBUTION WIDTH 16.7 % (11.6-17.2); WHITE BLOOD COUNT 5.6 TH/MM3 (4.0-11.0)
[2018-01-07 18:41] LABS: ALBUMIN 2.4 GM/DL (3.4-5.0); ALKALINE PHOSPHATASE 136 U/L (45-117); ALT (GPT) 30 U/L (10-53); AST (GOT) 45 U/L (15-37); BICARBONATE 25.8 MEQ/L (21.0-32.0); BLOOD UREA NITROGEN 56 MG/DL (7-18); CHLORIDE 107 MEQ/L (98-107); CREATININE 3.08 MG/DL (0.50-1.00); GLOMERULAR FILTRATION RATE 15 ML/MIN (>89); GLUCOSE,RANDOM 260 MG/DL (74-106); MAGNESIUM 2.4 MG/DL (1.5-2.5); PHOSPHORUS 4.9 MG/DL (2.5-4.9); SODIUM (NA) 141 MEQ/L (136-145); TOTAL BILIRUBIN ADULT 0.3 MG/DL (0.2-1.0); TOTAL PROTEIN 5.5 GM/DL (6.4-8.2)
--- NOTE | 2018-01-07 22:07 | HHI.PR ---
Subjective Remarks 67 YOWF with CAD, s/p stent, COPD,Pl eff Had TC 800 cc fluid removed Doing well Objective Vital Signs Vital Signs Date Time Temp Pulse Resp B/P (MAP) Pulse Ox O2 Delivery O2 Flow Rate FiO2 01/07/18 17:28 93 Nasal Cannula 4.00 01/07/18 16:00 97.6 79 20 126/62 (83) 93 01/07/18 16:00 78 01/07/18 12:00 97.9 74 20 123/66 (85) 90 01/07/18 12:00 68 01/07/18 08:00 Nasal Cannula 3.00 01/07/18 08:00 98.6 80 20 134/62 (86) 89 01/07/18 08:00 80 01/07/18 08:00 89 Nasal Cannula 3.00 01/07/18 04:05 75 01/07/18 04:00 97.8 79 18 139/61 (87) 94 01/07/18 04:00 Nasal Cannula 3.00 Humidified 01/07/18 00:00 Nasal Cannula 2.00 Humidified 01/07/18 00:00 97.8 76 18 157/65 (95) 90 01/06/18 23:50 71 I/O 01/06/18 01/06/18 01/06/18 01/07/18 01/07/18 01/07/18 07:00 15:00 23:00 07:00 15:00 23:00 Intake Total 580 ml 720 ml 480 ml Output Total 1750 ml 1100 ml 1400 ml 800 ml Balance -1170 ml -380 ml -1400 ml -320 ml Intake Oral 480 ml 720 ml 480 ml IV Total 100 ml Output Urine Total 1750 ml 1100 ml 1400 ml 800 ml # Bowel Movements 1 Result Diagram: 01/07/18 1713 01/07/18 1713 Objective Remarks GENERAL: MBMN WF,NAD SKIN: Warm and dry. HEAD: Normocephalic. EYES: No scleral icterus. No injection or drainage. NECK: Supple, trachea midline. No JVD or lymphadenopathy. CARDIOVASCULAR: Regular rate and rhythm without murmurs, gallops, or rubs. RESPIRATORY: Breath sounds equal bilaterally. No accessory muscle use. GASTROINTESTINAL: Abdomen soft, non-tender, nondistended. MUSCULOSKELETAL: No cyanosis, or edema. BACK: Nontender without obvious deformity. No CVA tenderness. A/P Assessment and Plan Pl eff, s/p TC CHF CAD, s/p stent COPD PLAN: Diurease Aerosol nebs Supplement [address] fluid results Aaron Blankenship MD Jan 07, 2018 22:07
[2018-01-08] VITALS (14 sets, daily range): BP systolic 124–154; BP diastolic 60–71; PULSE 69–83; RESP 16–24; TEMP 97.8–98.9; O2SAT 90–98
[2018-01-08] MEDS: hydrALAZINE HCL 50 MG TAB PO SCH ×3 (06:11→22:31)
[2018-01-08] MEDS: ISOSORBIDE MONONITRATE 60 MG CR TAB (IMDUR) PO SCH (06:11)
[2018-01-08 09:16] LABS: HEMATOCRIT 21.7 % (35.0-46.0); HEMOGLOBIN 7.3 GM/DL (11.6-15.3); MEAN CELL VOLUME 89.2 FL (80.0-100.0); MEAN CORPUSCULAR HEMOGLOBIN 30.2 PG (27.0-34.0); MEAN CORPUSCULAR HGB CONC 33.8 % (32.0-36.0); MEAN PLATELET VOLUME 8.1 FL (7.0-11.0); PLATELET COUNT 229 TH/MM3 (150-450); RED BLOOD COUNT 2.43 MIL/MM3 (4.00-5.30); RED CELL DISTRIBUTION WIDTH 16.8 % (11.6-17.2); WHITE BLOOD COUNT 5.8 TH/MM3 (4.0-11.0)
[2018-01-08] MEDS: FUROSEMIDE 100 MG/10 ML VIAL IV PUSH SCH (09:45)
[2018-01-08] MEDS: HEPARIN SODIUM - SQ 10,000 UNITS/ML VIAL SQ SCH ×2 (09:46→21:30)
[2018-01-08] MEDS: ASPIRIN 81 MG CHEW TAB CHEW SCH (09:47)
[2018-01-08] MEDS: INSULIN DETEMIR 100 UNITS/ML VIAL SQ SCH ×2 (09:47→21:00)
[2018-01-08] MEDS: PRASUGREL 10 MG TAB PO SCH (09:48)
[2018-01-08] MEDS: NIFEdipine 30 MG SUSTAINED RELEASE TAB PO SCH ×2 (09:49→21:30)
[2018-01-08] MEDS: CARVEDILOL 6.25 MG TAB PO SCH ×2 (09:50→21:29)
[2018-01-08] MEDS: METOLAZONE 2.5 MG TAB PO SCH ×2 (09:50→21:00)
[2018-01-08] MEDS: SPIRONOLACTONE 25 MG TAB PO SCH (09:50)
[2018-01-08] MEDS: SODIUM CHLORIDE 0.9% FLUSH 10 ML FLUSH IV FLUSH SCH ×2 (09:51→21:00)
[2018-01-08] MEDS: INSULIN ASPART SUPPLEMENTAL SCALE SQ SCH ×4 (09:51→21:00)
[2018-01-08 10:20] LABS: BICARBONATE 26.8 MEQ/L (21.0-32.0); CALCIUM 8.9 MG/DL (8.5-10.1); CREATININE 3.12 MG/DL (0.50-1.00)
[2018-01-08] MEDS: DOXAZOSIN MESYLATE 2 MG TAB PO SCH ×2 (10:27)
[2018-01-08] MEDS ORDERED: SODIUM CHLOR 0.9% 250 ML INJ 250 ML IV ONE (10:30)
[2018-01-08] MEDS ORDERED: diphenhydrAMINE HCL 25 MG CAP PO PRN (10:30)
[2018-01-08] MEDS ORDERED: ACETAMINOPHEN 325 MG TAB PO PRN (10:30)
[2018-01-08] MEDS ORDERED: FUROSEMIDE 20 MG/2 ML VIAL IV PUSH ONE (10:30)
--- NOTE | 2018-01-08 11:26 | RADRPT ---
EXAM DATE/TIME: 01/08/2018 10:59 [facility] COMPARISON: CHEST SINGLE AP, January 06, 2018, 14:35. INDICATIONS : Respiratory failure. MEDICAL HISTORY : Chronic obstructive pulmonary disease. Congestive heart failure. Coronary artery disease. SURGICAL HISTORY : Appendectomy. Hysterectomy. Coronary artery stent. Tonsillectomy ENCOUNTER: Subsequent ACUITY: 1 day PAIN SCORE: 0/10 LOCATION: Bilateral chest FINDINGS: The heart size is moderately enlarged. There is diffuse cephalization of pulmonary vasculature. Moder ate sized left-sided pleural effusion, stable. Hazy increased density involving the right hemithorax consistent with a small layering pleural effusion and atelectasis of the right lower lobe. CONCLUSION: Stable lung exam. Lines consistent with congestive heart failure pulmonary edema and bilateral pleura l effusions.. Seema Jones MD on January 08, 2018 at 11:22 Board Certified Radiologist. This report was verified electronically.
--- NOTE | 2018-01-08 11:30 | HHI.NPPN ---
Subjective History of Present Illness This is a 67-year-old female known to me from before, has been following with me in the office with past medical history of hypertension, ischemic heart disease, congestive heart failure, diabetes mellitus, chronic obstructive pulmonary disease, chronic anemia, hyperlipidemia, chronic kidney disease, came to the hospital with low blood sugar. I was called to see the patient because of elevated BUN and creatinine. The patient has known history of chronic kidney disease. Her baseline creatinine is around 1.6-1.8. She came in with creatinine of 1.6 and it has gone up to 2.0 and 2.1. The patient was hypotensive on admission and also she has bradycardia and she was hypothermic. She is much better now, her sugar has gone up after given the D50 and she is currently sitting in the chair with nasal cannula. She has mild shortness of breath. According to her the swelling in the leg has been improving but she still has a lot of edema in the legs. She denies any headache or dizziness at present. No chest pain. She has mild cough which is mainly dry. No history of dysuria, hematuria, difficulty passing urine. Additional Remarks Patient is alert and oriented with SOB improved after thoracentesis (Jessica Clemons) Review of Systems Respiratory Respiratory Remarks SOB improved (Jessica Clemons) Cardiovascular Cardiac Remarks Denies CP (Jessica Clemons) Gastrointestinal GI Remarks No abdominal pain (Jessica Clemons) Objective Data Data Vital Signs Date Time Temp Pulse Resp B/P (MAP) Pulse Ox O2 Delivery O2 Flow Rate FiO2 01/08/18 08:00 97.8 76 18 124/60 (81) 91 01/08/18 04:30 95 Nasal Cannula 4.00 01/08/18 04:00 98.3 77 20 154/64 (94) 91 01/08/18 03:58 71 01/08/18 00:23 69 01/08/18 00:00 98.5 75 24 140/65 (90) 94 01/07/18 21:13 95 Nasal Cannula 3.00 01/07/18 20:06 76 01/07/18 20:00 97.4 73 20 150/67 (94) 92 01/07/18 20:00 97.4 73 20 97/50 (66) 94 01/07/18 17:28 93 Nasal Cannula 4.00 01/07/18 16:00 97.6 79 20 126/62 (83) 93 01/07/18 16:00 78 01/07/18 12:00 97.9 74 20 123/66 (85) 90 01/07/18 12:00 68 (Jessica Clemons) -: 01/08/18 0851 01/08/18 0851 Microbiology 01/07/18 Fungal Smear - Final, Resulted NO FUNGAL ELEMENTS SEEN. 01/07/18 Fungal Culture, Resulted Pending 01/07/18 Acid Fast Stain, Received Pending 01/07/18 Mycobacterial Culture, Received Pending 01/07/18 Gram Stain - Final, Resulted 01/07/18 Body Fluid Culture, Resulted Pending (Jessica Clemons) Physical Exam General Appearance: Well Nourished, No Acute Distress, Comfortable (Jessica Clemons) Eyes Eye Exam: Pupils Equal (Jessica Clemons) Pulmonary Resp Exam: Breath Sounds Equal, No Distress, Decreased Bases (Jessica Clemons) Cardiology CV Exam: Regular, Normal Sinus Rhythm (Jessica Clemons) Gastrointestinal/Abdomen GI Exam: Soft, Non-Tender, Bowel Sounds Present (Jessica Clemons) Genitourinary Exam: Flank Non-Tender (Jessica Clemons) Integumentary Skin Exam: Clear, Warm, Ulcer(s) (Jessica Clemons) Extremeties Extremities Exam: Pitting Edema (Jessica Clemons) Neurologic Neuro Exam: Alert, Awake (Jessica Clemons) Psychiatric Psych Exam: Appropriate Responses (Jessica Clemons) Assessment/Plan Discussed Condition With: Patient Assessment Summary: CKD Stage IV Problem List: (1) Renal insufficiency ICD Codes: N28.9 - Disorder of kidney and ureter, unspecified Plan: The patient has chronic kidney disease with proteinuria, most likely she has diabetic nephropathy BC growing Gram Positive, Staph. Coag. negative. On Vanco PO and Daptomycin Good UOP has indwelling and edema improving. Weight is down. Renal US noted Creatinine slightly increased at 3.12 Potassium WNL s/p thoracentesis with improvement in SOB Plan HGB dropped to 7.3 plan to transfuse PRBC's Continue to monitor I+O Continue Aldactone, metolazone, IV lasix and albumin. Avoid nephrotoxins Once the kidney function is stabilized and she can be started on RUSS inhibitor, if her potassium is normal. (2) Leukocytosis ICD Codes: D72.829 - Elevated white blood cell count, unspecified Status: Acute (3) Hypertension ICD Codes: I10 - Essential (primary) hypertension Status: Chronic Plan: Blood pressure improving Continue Coreg, nifedipine, hydralazine, cardura, and clonidine Continue the same (4) Sepsis ICD Codes: A41.9 - Sepsis, unspecified organism Status: Resolved (5) Anemia ICD Codes: D64.9 - Anemia, unspecified Status: Chronic (6) Stage 4 chronic kidney disease ICD Codes: N18.4 - Chronic kidney disease, stage 4 (severe) (Jessica Clemons) Problem List: (1) Renal insufficiency ICD Codes: N28.9 - Disorder of kidney and ureter, unspecified Plan: The patient has chronic kidney disease with proteinuria, most likely she has diabetic nephropathy BC growing Gram Positive, Staph. Coag. negative. On Vanco PO and Daptomycin Good UOP has indwelling and edema improving. Weight is down. Renal US noted Creatinine slightly increased at 3.12 Potassium WNL s/p thoracentesis with improvement in SOB Plan HGB dropped to 7.3 plan to transfuse PRBC's Continue to monitor I+O Continue Aldactone, metolazone, IV lasix and albumin. Avoid nephrotoxins Once the kidney function is stabilized and she can be started on RUSS inhibitor, if her potassium is normal. Creatinine increase, will decrease Lasix 40 mg IV BID. (2) Leukocytosis ICD Codes: D72.829 - Elevated white blood cell count, unspecified Status: Acute (3) Hypertension ICD Codes: I10 - Essential (primary) hypertension Status: Chronic Plan: Blood pressure improving Continue Coreg, nifedipine, hydralazine, cardura, and clonidine Continue the same (4) Sepsis ICD Codes: A41.9 - Sepsis, unspecified organism Status: Resolved (5) Anemia ICD Codes: D64.9 - Anemia, unspecified Status: Chronic (6) Stage 4 chronic kidney disease ICD Codes: N18.4 - Chronic kidney disease, stage 4 (severe) (Flavio Toro MD ) Problem Qualifiers (1) Hypertension: Qualified Codes: I10 - Essential (primary) hypertension Jessica Clemons Jan 08, 2018 11:29 Flavio Toro MD Jan 08, 2018 15:09
[2018-01-08] MEDS: VANCOMYCIN 25 MG/ML SUSP 100 ML BOTTLE PO SCH ×4 (11:50→21:00)
[2018-01-08 14:58] LABS: AMYLASE BODY FLUID 31 U/L; AMYLASE BODY FLUID TYPE PLEURAL
--- NOTE | 2018-01-08 15:12 | HHI.PR ---
Subjective Remarks Patient c/o some sob but this is improved from yesterday. Denies cp. Afebrile. Creatinine trending up. Objective Vitals Vital Signs Date Time Temp Pulse Resp B/P (MAP) Pulse Ox O2 Delivery O2 Flow Rate FiO2 01/08/18 12:00 98.9 78 18 139/71 (93) 98 01/08/18 08:00 73 01/08/18 08:00 97.8 76 18 124/60 (81) 91 01/08/18 04:30 95 Nasal Cannula 4.00 01/08/18 04:00 98.3 77 20 154/64 (94) 91 01/08/18 03:58 71 01/08/18 00:23 69 01/08/18 00:00 98.5 75 24 140/65 (90) 94 01/07/18 21:13 95 Nasal Cannula 3.00 01/07/18 20:06 76 01/07/18 20:00 97.4 73 20 150/67 (94) 92 01/07/18 20:00 97.4 73 20 97/50 (66) 94 01/07/18 17:28 93 Nasal Cannula 4.00 01/07/18 16:00 97.6 79 20 126/62 (83) 93 01/07/18 16:00 78 I/O 01/07/18 01/07/18 01/07/18 01/08/18 01/08/18 01/08/18 07:00 15:00 23:00 07:00 15:00 23:00 Intake Total 480 ml Output Total 1400 ml 800 ml 1500 ml Balance -1400 ml -320 ml -1500 ml Intake Oral 480 ml Output Urine Total 1400 ml 800 ml 1500 ml # Bowel Movements 0 Result Diagram: 01/08/18 0851 01/08/18 0851 Imaging Last Impressions Chest X-Ray 01/08/18 0000 Signed Impressions: Service Date/Time: Monday, January 08, 2018 10:59 - CONCLUSION: Stable lung exam. Lines consistent with congestive heart failure pulmonary edema and bilateral pleural effusions.. Seema Jones MD Thoracentesis Ultrasound 01/07/18 181 Signed Impressions: Service Date/Time: Sunday, January 07, 2018 13:11 - CONCLUSION: Uncomplicated ultrasound guided thoracentesis. Linwood Chadwick MD Renal Ultrasound 01/02/18 0000 Signed Impressions: Service Date/Time: Tuesday, January 02, 2018 14:33 - CONCLUSION: Left pleural effusion with sinusitis and possible fatty liver. Ernestine King MD Head CT 12/28/17 0807 Signed Impressions: Service Date/Time: Thursday, December 28, 2017 09:04 - CONCLUSION: No acute disease. No significant change has occurred. Héctor Carmona MD Abdomen/Pelvis CT 12/28/17 0000 Signed Impressions: Service Date/Time: Thursday, December 28, 2017 09:07 - CONCLUSION: Stable abdomen. No evidence of free air and no evidence of obstruction. Large bilateral pleural effusions with ascites and anasarca. Diverticuli uncomplicated of the colon with diminished mural thickening of the colon suggesting improving colitis. Lim catheter in place in the urinary bladder. Héctor Carmona MD Objective Remarks GENERAL: patient sitting up in bed. Appears comfortable.alert and oriented 3. SKIN: Warm and dry. HEAD: Normocephalic. EYES: No scleral icterus. No injection or drainage. NECK: Supple, trachea midline. No JVD. CARDIOVASCULAR: Regular rate and rhythm without murmurs, gallops, or rubs. RESPIRATORY: Breath sounds equal bilaterally. No accessory muscle use. GASTROINTESTINAL: Abdomen soft, non-tender, nondistended. MUSCULOSKELETAL: No cyanosis. anasarca. Dependent edema continues. No erythema. Right leg wound dressed with dressing clean and dry and intact. BACK: Nontender without obvious deformity. No CVA tenderness. Medications and IVs Current Medications Medications (Trade) Dose Ordered Sig/Marie Route Start Time Stop Time Status Last Admin (NS Flush) 2 ml UNSCH PRN IV FLUSH 12/28/17 10:45 (NS Flush) 2 ml BID IV FLUSH 12/28/17 21:00 01/08/18 09:51 (Zofran Inj) 4 mg Q6H PRN IVP 12/28/17 10:45 01/01/18 08:20 (Narcan Inj) 0.4 mg UNSCH PRN IV PUSH 12/28/17 10:45 (Milk Of Magnesia Liq) 30 ml Q12H PRN PO 12/28/17 10:45 (Senokot) 17.2 mg Q12H PRN PO 12/28/17 10:45 (Dulcolax Supp) 10 mg DAILY PRN RECTAL 12/28/17 10:45 (Lactulose Liq) 30 ml DAILY PRN PO 12/28/17 10:45 (D50w (Vial) Inj) 50 ml UNSCH PRN IV PUSH 12/28/17 10:45 01/01/18 08:38 (Glucagon Inj) 1 mg STAT PRN IM 12/28/17 10:45 (Aspirin Chew) 81 mg DAILY CHEW 12/29/17 09:00 01/08/18 09:47 (Lipitor) 40 mg HS PO 12/28/17 21:00 Future Hold 01/01/18 21:14 (Effient) 10 mg DAILY PO 12/29/17 09:00 01/08/18 09:48 (Heparin Inj) 5,000 units Q12HR SQ 12/28/17 21:00 01/08/18 09:46 (Jefferson 5-325 Mg) 1 tab Q6H PRN PO 12/28/17 20:45 01/07/18 21:15 Miscellaneous Information Patient in critical care unit? Ass... Q361D .XX 12/28/17 23:30 12/28/17 23:30 (Zaroxolyn) 2.5 mg BID PO 12/29/17 21:00 01/08/18 09:50 (Imdur) 60 mg DAILY@07 PO 12/31/17 07:00 01/08/18 06:11 (Catapres) 0.1 mg Q6H PRN PO 12/30/17 18:30 01/04/18 12:46 (Atrovent Neb) 0.5 mg Q6HR NEB PRN NEB 12/31/17 18:30 01/07/18 09:11 (Apresoline) 75 mg Q8HR PO 12/31/17 22:00 01/08/18 14:03 (Pill Splitter) 1 ea UNSCH PRN OTHER 12/31/17 18:45 (Procardia Xl) 30 mg Q12HR PO 01/01/18 21:00 01/08/18 09:49 (Aldactone) 12.5 mg DAILY PO 01/02/18 10:00 01/08/18 09:50 (NovoLOG SUPPLEMENTAL SCALE) 1 ACHS SLIDING SCALE SQ 01/02/18 12:00 01/08/18 14:02 Daptomycin 500 mg/ Sodium Chloride 100 ml @ 200 mls/hr Q48H IV 01/02/18 16:00 01/06/18 18:00 (Levemir Inj) 5 units Q12HR SQ 01/04/18 09:00 01/08/18 09:47 (Coreg) 6.25 mg Q12HR PO 01/04/18 21:00 01/08/18 09:50 (Cardura) 2 mg DAILY PO 01/05/18 09:00 01/08/18 10:27 (Lasix Inj) 80 mg Q12HR IV PUSH 01/04/18 21:00 01/08/18 09:45 (Cardura) 2 mg DAILY PO 01/05/18 09:00 01/08/18 10:27 (Vancomycin 25 Mg/ml Liq) 125 mg QID PO 01/07/18 14:46 01/08/18 14:04 Sodium Chloride 250 ml @ 15 mls/hr ONCE ONCE IV 01/08/18 10:30 01/09/18 03:09 (Tylenol) 650 mg Q4H PRN PO 01/08/18 10:30 (Benadryl) 25 mg Q4H PRN PO 01/08/18 10:30 A/P Problem List: (1) Sepsis ICD Code: A41.9 - Sepsis, unspecified organism Status: Resolved (2) Hypothermia ICD Code: T68.XXXA - Hypothermia, initial encounter Status: Resolved (3) Hypoglycemia ICD Code: E16.2 - Hypoglycemia, unspecified Status: Acute (4) IDDM (insulin dependent diabetes mellitus) ICD Code: E11.9 - Type 2 diabetes mellitus without complications; Z79.4 - MCC (current) use of insulin Status: Chronic (5) Acute on chronic diastolic heart failure ICD Code: I50.33 - Acute on chronic diastolic (congestive) heart failure Status: Resolved (6) Severe protein-calorie malnutrition ICD Code: E43 - Unspecified severe protein-calorie malnutrition Status: Chronic (7) Bilateral pleural effusion ICD Code: J90 - Pleural effusion, not elsewhere classified Status: Acute (8) BPPV (benign paroxysmal positional vertigo) ICD Code: H81.10 - Benign paroxysmal vertigo, unspecified ear (9) CAD (coronary artery disease) ICD Code: I25.10 - Atherosclerotic heart disease of [place] coronary artery without angina pectoris Status: Chronic (10) HTN (hypertension) ICD Code: I10 - Essential (primary) hypertension Status: Chronic (11) COPD (chronic obstructive pulmonary disease) ICD Code: J44.9 - Chronic obstructive pulmonary disease, unspecified (12) Marijuana abuse ICD Code: F12.10 - Cannabis abuse, uncomplicated (13) Clostridium difficile colitis ICD Code: A04.7 - Enterocolitis due to Clostridium difficile Status: Resolved (14) Anemia ICD Code: D64.9 - Anemia, unspecified Assessment and Plan sepsis Bacteremia with gram-positive bacteria. Staph epi. Questionable etiology. With hypothermia, hypoglycemia. Right leg wound. Lactate within normal limits. CT with no acute abdominal findings, however marketed bilateral pleural effusions. Right leg wound, elevated ESR in the 40s. The patient was admitted to the intensive care unit. Placed on broad-spectrum antibiotics.. Blood cultures positive for staph epidermidis. Etiology questionable. Vancomycin discontinued on 01/02 due to renal insufficiency. Repeat blood cultures negative. The patient was on IV daptomycin. As per ID consultation and recommendations daptomycin should be administered until 01/08/18. 01/08 Sepsis clinically resolved. Stop Daptomycin after today. Hypothermia Elevated TSH 10 on admission Hypothermia was treated with a bear hugger. Continue there are hugger is needed. Cortisol level and is suspected Prange. The patient was placed on IV hydrocortisone. Hypothermia improved. TSH was repeated and within normal range. Cortisol levels within suspected range. TSH elevation likely elevated due to stress and acute illness. Severe malnutrition. Patient tolerating diet. Encourage with Glucerna supplements. The patient was given IV abdomen which has been discontinued. Encourage by mouth intake. DM hypoglycemia on admission Hypoglycemia resolved after initiation of D50. The patient later became hypoglycemic and was placed on SSI with insulin. The patient then became hypoglycemic again in the 30s and Levemir was discontinued on 01/01. Blood sugars then started to improve and on 01/03 the patient's Levemir was increased to 5 minute units subcutaneously twice a day. Blood sugars stable, no further hypoglycemia. Continue SSI and insulin Levemir. CHF exacerbation BNP 1000. Bilateral lower extremity edema. Bilateral pleural effusions. We' ll order IV Lasix. Checked monitoring of intake and output. Appreciate nursing assistance. Continue IV diuretics as per nephrology. Bilateral pleural effusions Cardiology cannot clear patient to hold Effient due to recent drug-eluting stent. Expect these are secondary to CHF. Will continue to follow. 01/06 patient complains of shortness of breath, repeat chest x-ray shows increased bilateral pleural effusions mostly on the left. Discussed case with Dr Reddy - Effient should be discontinued only on life threatening situations. Will order us guided thoracentesis, this was discussed with pulmonology as well. 01/07 discussed the case with Dr Chadwick from radiology, the patient is short of breath with enlarging pleural effusion despite being on IV diuretics. The patient wishes to proceed with drainage of pleural effusion despite the risk of bleeding. Dr. Jules agreed and thoracentesis will be done. Appreciate pulmonary recommendations. 01/08 sp US guided thoracentesis with drainage of 800 cc of pleural fluid which looks noninfectious. CONOR on CKD Likely secondary to diabetic nephropathy. Renal function initially worsening. Today slightly improved. Nephrology consulted. Continue Aldactone 8, metolazone, IV Lasix and albumin. Edema is improving. Continue to avoid nephrotoxins, monitor I's and O's and monitor BMP. CAD. Uncontrolled hypertension Cardiology following. Appreciate assistance. Patient blood pressure was severely elevated on 01/04 in the 200s range. Patient' s Coreg dose was increased to 6.25 mg p.o. twice daily and the patient was started on Cardura 2 mg p.o. daily. The patient continued to have elevated blood pressure and Cardura dose was increased to 4 mg p.o. daily. Benign paroxysmal postural vertigo The patient had nystagmus on exam and vertigo was resolved after Pedro maneuver. Suspect this is the cause of her intermittent nausea which leads to hypoglycemia Marijuana abuse. Cessation counseling provided. COPD. Not appear to be in acute exacerbation. Nebs as needed. C. difficile infection. Diarrhea has resolved. Continue oral vancomycin for a total of 14 days. Anemia. Likely anemia of chronic disease. Patient with CKD stage IV. Hemoglobin stable. The patient presented with hemoglobin of 10 on admission which dropped down to 8.1 and now is recovering. Last hemoglobin 8.5 on January 03, 2018. Continue to monitor H&H and transfuse as needed for hemoglobin 01/08 hemoglobin trended down to 7.3. I will transfuse 2 units of packed red blood cells and monitor hemoglobin post transfusion. Check stool guaiac. Right leg wound. Podiatry consulted. Recommended calcium alginate with silver dressing every 3 days. Elevate legs at all times. Recommend follow-up with Dr. Read at the wound center after discharge. No baths or showers. Sponge bathe only. Shortness of breath The patient is complaining of shortness of breath. Chest x-ray ordered to evaluate. Repeat chest x-ray reviewed by me shows moderate sized left pleural effusion and small right pleural effusion. Mild central pulmonary congestion. Cardiomegaly. Scattered atelectasis and/or infiltrates bilaterally. I will order an ultrasound-guided thoracentesis. As per cardiology - She had drug eluting stent in Jun 2017; Effient and ASA cannot be stopped unless life threatening emergency occur for 1 year. High risk of stent thrombosis off meds. 01/08 SP US guided thoracentesis. Discharge Planning Pending improvement of CONOR. Patient to be transfused today. Problem Qualifiers (1) Hypothermia: Qualified Codes: T68.XXXD - Hypothermia, subsequent encounter (2) BPPV (benign paroxysmal positional vertigo): Qualified Codes: H81.10 - Benign paroxysmal vertigo, unspecified ear Rommel Russell MD Jan 08, 2018 15:12
[2018-01-08] MEDS: ACETAMINOPHEN/HYDROcodone 325 MG/5 MG TAB PO PRN ×2 (15:53→22:31)
[2018-01-08] MEDS: DAPTOmycin INJ 500 MG in SODIUM CHLORIDE 0.9% INJ 100 ML IV SCH (15:54)
[2018-01-08] MEDS: FUROSEMIDE 40 MG/4 ML VIAL IV PUSH SCH (21:29)
[2018-01-09] VITALS (9 sets, daily range): BP systolic 141–161; BP diastolic 65–77; PULSE 69–82; RESP 16–19; TEMP 98–98.5; O2SAT 90–94
[2018-01-09] MEDS: RESP: IPRATROPIUM 0.5 MG/2.5 ML NEB NEB PRN (05:21)
[2018-01-09] MEDS: ISOSORBIDE MONONITRATE 60 MG CR TAB (IMDUR) PO SCH (05:44)
[2018-01-09] MEDS: hydrALAZINE HCL 50 MG TAB PO SCH ×3 (05:44→21:42)
[2018-01-09] MEDS: ACETAMINOPHEN/HYDROcodone 325 MG/5 MG TAB PO PRN ×2 (05:44→20:18)
[2018-01-09] MEDS: INSULIN ASPART SUPPLEMENTAL SCALE SQ SCH ×4 (08:00→20:20)
[2018-01-09] MEDS: SODIUM CHLORIDE 0.9% FLUSH 10 ML FLUSH IV FLUSH SCH ×2 (08:30→20:19)
[2018-01-09] MEDS: VANCOMYCIN 25 MG/ML SUSP 100 ML BOTTLE PO SCH ×4 (08:31→20:17)
[2018-01-09] MEDS: NIFEdipine 30 MG SUSTAINED RELEASE TAB PO SCH ×2 (08:39→20:19)
[2018-01-09] MEDS: HEPARIN SODIUM - SQ 10,000 UNITS/ML VIAL SQ SCH ×2 (08:39→20:19)
[2018-01-09] MEDS: PRASUGREL 10 MG TAB PO SCH (08:39)
[2018-01-09] MEDS: METOLAZONE 2.5 MG TAB PO SCH ×2 (08:40→20:20)
[2018-01-09] MEDS: DOXAZOSIN MESYLATE 2 MG TAB PO SCH ×2 (08:40→08:43)
[2018-01-09] MEDS: FUROSEMIDE 40 MG/4 ML VIAL IV PUSH SCH ×2 (08:40→20:18)
[2018-01-09] MEDS: CARVEDILOL 6.25 MG TAB PO SCH ×2 (08:41→20:19)
[2018-01-09] MEDS: SPIRONOLACTONE 25 MG TAB PO SCH (08:41)
[2018-01-09] MEDS: ASPIRIN 81 MG CHEW TAB CHEW SCH (08:41)
[2018-01-09] MEDS: INSULIN DETEMIR 100 UNITS/ML VIAL SQ SCH ×2 (08:42→20:20)
[2018-01-09 09:17] LABS: HEMATOCRIT 27.1 % (35.0-46.0); HEMOGLOBIN 9.4 GM/DL (11.6-15.3); MEAN CELL VOLUME 89.6 FL (80.0-100.0); MEAN CORPUSCULAR HEMOGLOBIN 31.1 PG (27.0-34.0); MEAN CORPUSCULAR HGB CONC 34.7 % (32.0-36.0); MEAN PLATELET VOLUME 8.3 FL (7.0-11.0); PLATELET COUNT 239 TH/MM3 (150-450); RED BLOOD COUNT 3.02 MIL/MM3 (4.00-5.30); RED CELL DISTRIBUTION WIDTH 16.2 % (11.6-17.2); WHITE BLOOD COUNT 7.8 TH/MM3 (4.0-11.0)
[2018-01-09 09:32] LABS: BICARBONATE 27.6 MEQ/L (21.0-32.0); CALCIUM 8.9 MG/DL (8.5-10.1); CREATININE 3.19 MG/DL (0.50-1.00); MAGNESIUM 2.5 MG/DL (1.5-2.5)
[2018-01-09 09:33] LABS: PHOSPHORUS 5.2 MG/DL (2.5-4.9)
--- NOTE | 2018-01-09 10:54 | HHI.NPPN ---
Subjective History of Present Illness This is a 67-year-old female known to me from before, has been following with me in the office with past medical history of hypertension, ischemic heart disease, congestive heart failure, diabetes mellitus, chronic obstructive pulmonary disease, chronic anemia, hyperlipidemia, chronic kidney disease, came to the hospital with low blood sugar. I was called to see the patient because of elevated BUN and creatinine. The patient has known history of chronic kidney disease. Her baseline creatinine is around 1.6-1.8. She came in with creatinine of 1.6 and it has gone up to 2.0 and 2.1. The patient was hypotensive on admission and also she has bradycardia and she was hypothermic. She is much better now, her sugar has gone up after given the D50 and she is currently sitting in the chair with nasal cannula. She has mild shortness of breath. According to her the swelling in the leg has been improving but she still has a lot of edema in the legs. She denies any headache or dizziness at present. No chest pain. She has mild cough which is mainly dry. No history of dysuria, hematuria, difficulty passing urine. Additional Remarks Patient is alert and oriented. Reports that she feels much better after her blood transfusion. Reports intermittent SOB (Jessica Clemons) Review of Systems Respiratory Respiratory Remarks SOB improved (Jessica Clemons) Cardiovascular Cardiac Remarks Denies CP (Jessica Clemons) Gastrointestinal GI Remarks No abdominal pain (Jessica Clemons) Objective Data Data Vital Signs Date Time Temp Pulse Resp B/P (MAP) Pulse Ox O2 Delivery O2 Flow Rate FiO2 01/09/18 08:00 98.2 75 18 145/66 (92) 91 01/09/18 08:00 Nasal Cannula 4.00 01/09/18 08:00 74 01/09/18 04:00 72 01/09/18 04:00 Nasal Cannula 4.00 01/09/18 04:00 98.0 71 16 148/77 (100) 93 01/09/18 03:08 98.3 69 18 150/69 (96) 93 01/09/18 03:00 98.3 69 18 150/69 93 01/09/18 00:10 98.4 72 18 151/67 93 01/09/18 00:00 69 2/11/18 00:00 Nasal Cannula 4.00 01/09/18 00:00 98.4 77 18 154/67 (96) 93 01/08/18 23:49 98.6 72 18 154/65 91 01/08/18 22:00 77 01/08/18 21:10 98.0 76 18 144/65 91 01/08/18 20:00 98.0 76 16 144/65 (91) 90 01/08/18 20:00 Nasal Cannula 4.00 01/08/18 18:36 98.5 73 16 151/65 91 01/08/18 17:56 98.3 77 20 144/64 91 01/08/18 16:00 Nasal Cannula 4.00 01/08/18 16:00 76 01/08/18 12:00 98.9 78 18 139/71 (93) 98 01/08/18 12:00 Nasal Cannula 4.00 01/08/18 12:00 83 (Jessica Clemons) -: 01/09/18 0743 01/09/18 0743 Physical Exam General Appearance: Well Nourished, No Acute Distress, Comfortable (Jessica Clemons) Eyes Eye Exam: Pupils Equal (Jessica Clemons) Pulmonary Resp Exam: Breath Sounds Equal, No Distress, Decreased Bases (Jessica Clemons) Cardiology CV Exam: Regular, Normal Sinus Rhythm (Jessica Clemons) Gastrointestinal/Abdomen GI Exam: Soft, Non-Tender, Bowel Sounds Present (Jessica Clemons) Genitourinary Exam: Flank Non-Tender (Jessica Clemons) Integumentary Skin Exam: Clear, Warm, Ulcer(s) (Jessica Clemons) Extremeties Extremities Exam: Pitting Edema (Jessica Clemons) Neurologic Neuro Exam: Alert, Awake (Jessica Clemons) Psychiatric Psych Exam: Appropriate Responses (Jessica Clemons) Assessment/Plan Discussed Condition With: Patient Assessment Summary: CKD Stage IV Problem List: (1) Renal insufficiency ICD Codes: N28.9 - Disorder of kidney and ureter, unspecified Plan: The patient has chronic kidney disease with proteinuria, most likely she has diabetic nephropathy BC growing Gram Positive, Staph. Coag. negative. On Vanco PO and Daptomycin Good UOP Weight is down. Renal US noted Creatinine unchanged at 3.19 Potassium WNL s/p thoracentesis with improvement in SOB Plan Continue to monitor I+O indwelling catheter removed. IV Lasix decreased to 40 mg BID edema stable. Transfused 2 units of PRBC last night repeat HGB 9.4 Avoid nephrotoxins Once the kidney function is stabilized and she can be started on RUSS inhibitor, if her potassium is normal. . (2) Leukocytosis ICD Codes: D72.829 - Elevated white blood cell count, unspecified Status: Acute (3) Hypertension ICD Codes: I10 - Essential (primary) hypertension Status: Chronic Plan: Blood pressure improving Continue the same (4) Sepsis ICD Codes: A41.9 - Sepsis, unspecified organism Status: Resolved (5) Anemia ICD Codes: D64.9 - Anemia, unspecified Status: Chronic (6) Stage 4 chronic kidney disease ICD Codes: N18.4 - Chronic kidney disease, stage 4 (severe) (Jessica Clemons) Problem List: (1) Renal insufficiency ICD Codes: N28.9 - Disorder of kidney and ureter, unspecified Plan: The patient has chronic kidney disease with proteinuria, most likely she has diabetic nephropathy BC growing Gram Positive, Staph. Coag. negative. On Vanco PO and Daptomycin Good UOP Weight is down. Renal US noted Creatinine unchanged at 3.19 Potassium WNL s/p thoracentesis with improvement in SOB. Patient was seen and examined by me. Continue diuresis and follow the BMP. Plan Continue to monitor I+O indwelling catheter removed. IV Lasix decreased to 40 mg BID edema stable. Transfused 2 units of PRBC last night repeat HGB 9.4 Avoid nephrotoxins Once the kidney function is stabilized and she can be started on RUSS inhibitor, if her potassium is normal. . (2) Leukocytosis ICD Codes: D72.829 - Elevated white blood cell count, unspecified Status: Acute (3) Hypertension ICD Codes: I10 - Essential (primary) hypertension Status: Chronic Plan: Blood pressure improving Continue the same (4) Sepsis ICD Codes: A41.9 - Sepsis, unspecified organism Status: Resolved (5) Anemia ICD Codes: D64.9 - Anemia, unspecified Status: Chronic (6) Stage 4 chronic kidney disease ICD Codes: N18.4 - Chronic kidney disease, stage 4 (severe) (Flavio Toro MD ) Problem Qualifiers (1) Hypertension: Qualified Codes: I10 - Essential (primary) hypertension Jessica Clemons Jan 09, 2018 10:54 Flavio Toro MD Jan 10, 2018 12:15
--- NOTE | 2018-01-09 14:34 | HHI.PR ---
Subjective Remarks Patient states breathing is much improved. On 4 liters nasal canula. Denies cp/sob. Objective Vitals Vital Signs Date Time Temp Pulse Resp B/P (MAP) Pulse Ox O2 Delivery O2 Flow Rate FiO2 01/09/18 12:00 98.3 76 18 141/65 (90) 91 01/09/18 08:00 98.2 75 18 145/66 (92) 91 01/09/18 08:00 Nasal Cannula 4.00 01/09/18 08:00 74 01/09/18 04:00 72 01/09/18 04:00 Nasal Cannula 4.00 01/09/18 04:00 98.0 71 16 148/77 (100) 93 01/09/18 03:08 98.3 69 18 150/69 (96) 93 01/09/18 03:00 98.3 69 18 150/69 93 01/09/18 00:10 98.4 72 18 151/67 93 01/09/18 00:00 69 01/09/18 00:00 Nasal Cannula 4.00 01/09/18 00:00 98.4 77 18 154/67 (96) 93 01/08/18 23:49 98.6 72 18 154/65 91 01/08/18 22:00 77 01/08/18 21:10 98.0 76 18 144/65 91 01/08/18 20:00 98.0 76 16 144/65 (91) 90 01/08/18 20:00 Nasal Cannula 4.00 01/08/18 18:36 98.5 73 16 151/65 91 01/08/18 17:56 98.3 77 20 144/64 91 01/08/18 16:00 Nasal Cannula 4.00 01/08/18 16:00 76 I/O 01/08/18 01/08/18 01/08/18 01/09/18 01/09/18 01/09/18 07:00 15:00 23:00 07:00 15:00 23:00 Intake Total 890 ml 1250 ml Output Total 1500 ml 1300 ml Balance -1500 ml -410 ml 1250 ml Intake Oral 480 ml IV Total 150 ml Packed Cells 400 ml 1100 ml Blood Product IV Normal Saline Flush 10 ml Output Urine Total 1500 ml 1300 ml # Bowel Movements 0 1 Result Diagram: 01/09/1843 01/09/1843 Imaging Last Impressions Chest X-Ray 01/08/18 0000 Signed Impressions: Service Date/Time: Monday, January 08, 2018 10:59 - CONCLUSION: Stable lung exam. Lines consistent with congestive heart failure pulmonary edema and bilateral pleural effusions.. Seema Jones MD Thoracentesis Ultrasound 01/07/18 1817 Signed Impressions: Service Date/Time: Sunday, January 07, 2018 13:11 - CONCLUSION: Uncomplicated ultrasound guided thoracentesis. Linwood Chadwick MD Renal Ultrasound 01/02/18 0000 Signed Impressions: Service Date/Time: Tuesday, January 02, 2018 14:33 - CONCLUSION: Left pleural effusion with sinusitis and possible fatty liver. K. aMhad King MD Head CT 12/28/17 0807 Signed Impressions: Service Date/Time: Thursday, December 28, 2017 09:04 - CONCLUSION: No acute disease. No significant change has occurred. Héctor Carmona MD Abdomen/Pelvis CT 12/28/17 0000 Signed Impressions: Service Date/Time: Thursday, December 28, 2017 09:07 - CONCLUSION: Stable abdomen. No evidence of free air and no evidence of obstruction. Large bilateral pleural effusions with ascites and anasarca. Diverticuli uncomplicated of the colon with diminished mural thickening of the colon suggesting improving colitis. Lim catheter in place in the urinary bladder. Héctor Carmona MD Objective Remarks GENERAL: patient sitting up in bed. Appears comfortable.alert and oriented 3. SKIN: Warm and dry. HEAD: Normocephalic. EYES: No scleral icterus. No injection or drainage. NECK: Supple, trachea midline. No JVD. CARDIOVASCULAR: Regular rate and rhythm without murmurs, gallops, or rubs. RESPIRATORY: Breath sounds equal bilaterally. No accessory muscle use. GASTROINTESTINAL: Abdomen soft, non-tender, nondistended. MUSCULOSKELETAL: No cyanosis. edema present and stable +1. Dependent edema continues. No erythema. Right leg wound dressed with dressing clean and dry and intact. BACK: Nontender without obvious deformity. No CVA tenderness. Procedures none Medications and IVs Current Medications Medications (Trade) Dose Ordered Sig/Marie Route Start Time Stop Time Status Last Admin (NS Flush) 2 ml UNSCH PRN IV FLUSH 12/28/17 10:45 (NS Flush) 2 ml BID IV FLUSH 12/28/17 21:00 01/09/18 08:30 (Zofran Inj) 4 mg Q6H PRN IVP 12/28/17 10:45 01/01/18 08:20 (Narcan Inj) 0.4 mg UNSCH PRN IV PUSH 12/28/17 10:45 (Milk Of Magnesia Liq) 30 ml Q12H PRN PO 12/28/17 10:45 (Senokot) 17.2 mg Q12H PRN PO 12/28/17 10:45 (Dulcolax Supp) 10 mg DAILY PRN RECTAL 12/28/17 10:45 (Lactulose Liq) 30 ml DAILY PRN PO 12/28/17 10:45 (D50w (Vial) Inj) 50 ml UNSCH PRN IV PUSH 12/28/17 10:45 01/01/18 08:38 (Glucagon Inj) 1 mg STAT PRN IM 12/28/17 10:45 (Aspirin Chew) 81 mg DAILY CHEW 12/29/17 09:00 01/09/18 08:41 (Lipitor) 40 mg HS PO 12/28/17 21:00 Future Hold 01/01/18 21:14 (Effient) 10 mg DAILY PO 12/29/17 09:00 01/09/18 08:39 (Heparin Inj) 5,000 units Q12HR SQ 12/28/17 21:00 01/09/18 08:39 (Annawan 5-325 Mg) 1 tab Q6H PRN PO 12/28/17 20:45 01/09/18 05:44 Miscellaneous Information Patient in critical care unit? Ass... Q361D .XX 12/28/17 23:30 12/28/17 23:30 (Zaroxolyn) 2.5 mg BID PO 12/29/17 21:00 01/09/18 08:40 (Imdur) 60 mg DAILY@07 PO 12/31/17 07:00 01/09/18 05:44 (Catapres) 0.1 mg Q6H PRN PO 12/30/17 18:30 01/04/18 12:46 (Atrovent Neb) 0.5 mg Q6HR NEB PRN NEB 12/31/17 18:30 01/09/18 05:21 (Apresoline) 75 mg Q8HR PO 12/31/17 22:00 01/09/18 14:11 (Pill Splitter) 1 ea UNSCH PRN OTHER 12/31/17 18:45 (Procardia Xl) 30 mg Q12HR PO 01/01/18 21:00 01/09/18 08:39 (Aldactone) 12.5 mg DAILY PO 01/02/18 10:00 01/09/18 08:41 (NovoLOG SUPPLEMENTAL SCALE) 1 ACHS SLIDING SCALE SQ 01/02/18 12:00 01/09/18 12:26 Daptomycin 500 mg/ Sodium Chloride 100 ml @ 200 mls/hr Q48H IV 01/02/18 16:00 01/08/18 15:54 (Levemir Inj) 5 units Q12HR SQ 01/04/18 09:00 01/09/18 08:42 (Coreg) 6.25 mg Q12HR PO 01/04/18 21:00 01/09/18 08:41 (Cardura) 2 mg DAILY PO 01/05/18 09:00 01/09/18 08:40 (Cardura) 2 mg DAILY PO 01/05/18 09:00 01/09/18 08:43 (Vancomycin 25 Mg/ml Liq) 125 mg QID PO 01/07/18 14:46 01/09/18 14:10 (Tylenol) 650 mg Q4H PRN PO 01/08/18 10:30 (Benadryl) 25 mg Q4H PRN PO 01/08/18 10:30 (Lasix Inj) 40 mg Q12HR IV PUSH 01/08/18 21:00 01/09/18 08:40 A/P Problem List: (1) Sepsis ICD Code: A41.9 - Sepsis, unspecified organism Status: Resolved (2) Hypothermia ICD Code: T68.XXXA - Hypothermia, initial encounter Status: Resolved (3) Hypoglycemia ICD Code: E16.2 - Hypoglycemia, unspecified Status: Acute (4) IDDM (insulin dependent diabetes mellitus) ICD Code: E11.9 - Type 2 diabetes mellitus without complications; 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 Status: Chronic (5) Acute on chronic diastolic heart failure ICD Code: I50.33 - Acute on chronic diastolic (congestive) heart failure Status: Resolved (6) Severe protein-calorie malnutrition ICD Code: E43 - Unspecified severe protein-calorie malnutrition Status: Chronic (7) Bilateral pleural effusion ICD Code: J90 - Pleural effusion, not elsewhere classified Status: Acute (8) BPPV (benign paroxysmal positional vertigo) ICD Code: H81.10 - Benign paroxysmal vertigo, unspecified ear (9) CAD (coronary artery disease) ICD Code: I25.10 - Atherosclerotic heart disease of [place] coronary artery without angina pectoris Status: Chronic (10) HTN (hypertension) ICD Code: I10 - Essential (primary) hypertension Status: Chronic (11) COPD (chronic obstructive pulmonary disease) ICD Code: J44.9 - Chronic obstructive pulmonary disease, unspecified (12) Marijuana abuse ICD Code: F12.10 - Cannabis abuse, uncomplicated (13) Clostridium difficile colitis ICD Code: A04.7 - Enterocolitis due to Clostridium difficile Status: Resolved (14) Anemia ICD Code: D64.9 - Anemia, unspecified Assessment and Plan sepsis Bacteremia with gram-positive bacteria. Staph epi. Questionable etiology. With hypothermia, hypoglycemia. Right leg wound. Lactate within normal limits. CT with no acute abdominal findings, however marketed bilateral pleural effusions. Right leg wound, elevated ESR in the 40s. The patient was admitted to the intensive care unit. Placed on broad-spectrum antibiotics.. Blood cultures positive for staph epidermidis. Etiology questionable. Vancomycin discontinued on 01/02 due to renal insufficiency. Repeat blood cultures negative. The patient was on IV daptomycin. As per ID consultation and recommendations daptomycin should be administered until 01/08/18. 01/08 Sepsis clinically resolved. Stop Daptomycin after today. Hypothermia Elevated TSH on admission Hypothermia was treated with a bear hugger. Continue there are hugger is needed. Cortisol level and is suspected Prange. The patient was placed on IV hydrocortisone. Hypothermia improved. TSH was repeated and within normal range. Cortisol levels within suspected range. TSH elevation likely elevated due to stress and acute illness. Severe malnutrition. Patient tolerating diet. Encourage with Glucerna supplements. The patient was given IV abdomen which has been discontinued. Encourage by mouth intake. DM hypoglycemia on admission Hypoglycemia resolved after initiation of D50. The patient later became hypoglycemic and was placed on SSI with insulin. The patient then became hypoglycemic again in the 30s and Levemir was discontinued on 01/01. Blood sugars then started to improve and on 01/03 the patient's Levemir was increased to 5 minute units subcutaneously twice a day. Blood sugars stable, no further hypoglycemia. Continue SSI and insulin Levemir. CHF exacerbation BNP 1000. Bilateral lower extremity edema. Bilateral pleural effusions. We' ll order IV Lasix. Checked monitoring of intake and output. Appreciate nursing assistance. Continue IV diuretics as per nephrology. Bilateral pleural effusions Cardiology cannot clear patient to hold Effient due to recent drug-eluting stent. Expect these are secondary to CHF. Will continue to follow. 01/06 patient complains of shortness of breath, repeat chest x-ray shows increased bilateral pleural effusions mostly on the left. Discussed case with Dr Reddy - Effient should be discontinued only on life threatening situations. Will order us guided thoracentesis, this was discussed with pulmonology as well. 01/07 discussed the case with Dr Chadwick from radiology, the patient is short of breath with enlarging pleural effusion despite being on IV diuretics. The patient wishes to proceed with drainage of pleural effusion despite the risk of bleeding. Dr. Jules agreed and thoracentesis will be done. Appreciate pulmonary recommendations. 01/08 sp US guided thoracentesis with drainage of 800 cc of pleural fluid which looks noninfectious. CONOR on CKD Likely secondary to diabetic nephropathy. Renal function initially worsening. Today slightly improved. Nephrology consulted. Continue Aldactone 8, metolazone, IV Lasix and albumin. Edema is improving. 01/09 IV Lasix dose decreased as per nephrology to 40 mg IV BID. Continue to avoid nephrotoxins, monitor I's and O's and monitor BMP. CAD. Uncontrolled hypertension Etiology was consulted. Patient blood pressure was severely elevated on 01/04 in the 200s range. Patient's Coreg dose was increased to 6.25 mg p.o. twice daily and the patient was started on Cardura 2 mg p.o. daily. The patient continued to have elevated blood pressure and Cardura dose was increased to 4 mg p.o. daily. 01/09 BP improving. Continue same dose of antihypertensive medications. The patient is currently on Coreg and Cardura. Benign paroxysmal postural vertigo The patient had nystagmus on exam and vertigo was resolved after Pedro maneuver. Suspect this is the cause of her intermittent nausea which leads to hypoglycemia Marijuana abuse. Cessation counseling provided. COPD. Not appear to be in acute exacerbation. Nebs as needed. C. difficile infection. Diarrhea has resolved. Continue oral vancomycin for a total of 14 days. Anemia. Likely anemia of chronic disease. Patient with CKD stage IV. Hemoglobin stable. The patient presented with hemoglobin of 10 on admission which dropped down to 8.1 and now is recovering. Last hemoglobin 8.5 on January 03, 2018. Continue to monitor H&H and transfuse as needed for hemoglobin 01/08 hemoglobin trended down to 7.3. I will transfuse 2 units of packed red blood cells and monitor hemoglobin post transfusion. Check stool guaiac. 01/09 Patient feels much better after blood transfusion. Hemoglobin responded appropriately. Continue to monitor hemoglobin. Upon review of her medical records the patient has been seen by Dr. Dodge from hematology in the past, status post bone marrow biopsy which showed low iron stains in the bone marrow, as per records due to iron deficiency as well as possible low-grade myelodysplasia. Bone marrow biopsy in April 2016 showed mildly hypocellular bone marrow with trilineage hypoplasia. Bone marrow biopsy September 2016 showed normal cellular bone marrow with trilineage hematopoiesis. Positive for stainable iron noted at the time. Will start on oral iron. Right leg wound. Podiatry consulted. Recommended calcium alginate with silver dressing every 3 days. Elevate legs at all times. Recommend follow-up with Dr. Read at the wound center after discharge. No baths or showers. Sponge bathe only. Shortness of breath The patient is complaining of shortness of breath. Chest x-ray ordered to evaluate. Repeat chest x-ray reviewed by me shows moderate sized left pleural effusion and small right pleural effusion. Mild central pulmonary congestion. Cardiomegaly. Scattered atelectasis and/or infiltrates bilaterally. I will order an ultrasound-guided thoracentesis. As per cardiology - She had drug eluting stent in Jun 2017; Effient and ASA cannot be stopped unless life threatening emergency occur for 1 year. High risk of stent thrombosis off meds. 01/09 SP US guided thoracentesis. Shortness of breath improving. Discharge Planning Pending improvement of CONOR. Patient to be transfused today. Problem Qualifiers (1) Hypothermia: Qualified Codes: T68.XXXD - Hypothermia, subsequent encounter (2) BPPV (benign paroxysmal positional vertigo): Qualified Codes: H81.10 - Benign paroxysmal vertigo, unspecified ear Rommel Russell MD Jan 09, 2018 14:34
[2018-01-10] VITALS: BP 139/64; PULSE 70; PULSE 72; RESP 18; TEMP 98.7; O2SAT 92
[2018-01-10 04:00] VITALS: BP 143/63; PULSE 58; PULSE 69; PULSE 71; RESP 18; TEMP 98.1; O2SAT 91
[2018-01-10] MEDS: ACETAMINOPHEN/HYDROcodone 325 MG/5 MG TAB PO PRN ×2 (05:22→13:10)
[2018-01-10] MEDS: ISOSORBIDE MONONITRATE 60 MG CR TAB (IMDUR) PO SCH (05:22)
[2018-01-10] MEDS: hydrALAZINE HCL 50 MG TAB PO SCH ×3 (05:22→21:27)
[2018-01-10 08:00] VITALS: BP 139/91; PULSE 67; PULSE 69; PULSE 99; RESP 20; TEMP 97.7; O2SAT 93
[2018-01-10] MEDS: INSULIN ASPART SUPPLEMENTAL SCALE SQ SCH ×4 (08:00→21:28)
[2018-01-10] MEDS: CARVEDILOL 6.25 MG TAB PO SCH ×2 (08:24→21:27)
[2018-01-10] MEDS: VANCOMYCIN 25 MG/ML SUSP 100 ML BOTTLE PO SCH ×4 (08:24→21:28)
[2018-01-10] MEDS: NIFEdipine 30 MG SUSTAINED RELEASE TAB PO SCH ×2 (08:24→21:27)
[2018-01-10] MEDS: INSULIN DETEMIR 100 UNITS/ML VIAL SQ SCH ×2 (08:24→21:28)
[2018-01-10] MEDS: SPIRONOLACTONE 25 MG TAB PO SCH (08:25)
[2018-01-10] MEDS: PRASUGREL 10 MG TAB PO SCH (08:25)
[2018-01-10] MEDS: METOLAZONE 2.5 MG TAB PO SCH (08:25)
[2018-01-10] MEDS: ASPIRIN 81 MG CHEW TAB CHEW SCH (08:25)
[2018-01-10] MEDS: FUROSEMIDE 40 MG/4 ML VIAL IV PUSH SCH ×2 (08:26→21:26)
[2018-01-10] MEDS: DOXAZOSIN MESYLATE 2 MG TAB PO SCH ×2 (08:26→08:33)
[2018-01-10] MEDS: HEPARIN SODIUM - SQ 10,000 UNITS/ML VIAL SQ SCH ×2 (08:26→21:26)
[2018-01-10] MEDS: SODIUM CHLORIDE 0.9% FLUSH 10 ML FLUSH IV FLUSH SCH ×2 (08:26→21:29)
--- NOTE | 2018-01-10 09:10 | HHI.NPPN ---
Subjective History of Present Illness This is a 67-year-old female known to me from before, has been following with me in the office with past medical history of hypertension, ischemic heart disease, congestive heart failure, diabetes mellitus, chronic obstructive pulmonary disease, chronic anemia, hyperlipidemia, chronic kidney disease, came to the hospital with low blood sugar. I was called to see the patient because of elevated BUN and creatinine. The patient has known history of chronic kidney disease. Her baseline creatinine is around 1.6-1.8. She came in with creatinine of 1.6 and it has gone up to 2.0 and 2.1. The patient was hypotensive on admission and also she has bradycardia and she was hypothermic. She is much better now, her sugar has gone up after given the D50 and she is currently sitting in the chair with nasal cannula. She has mild shortness of breath. According to her the swelling in the leg has been improving but she still has a lot of edema in the legs. She denies any headache or dizziness at present. No chest pain. She has mild cough which is mainly dry. No history of dysuria, hematuria, difficulty passing urine. Additional Remarks Patient is alert and oriented. Reports that she is feeling much better. SOB improving. Minimal edema (Jessica Clemons) Review of Systems Respiratory Respiratory Remarks SOB improved (Jessica Clemons) Cardiovascular Cardiac Remarks Denies CP (Jessica Clemons) Gastrointestinal GI Remarks No abdominal pain (Jessica Clemons) Objective Data Data Vital Signs Date Time Temp Pulse Resp B/P (MAP) Pulse Ox O2 Delivery O2 Flow Rate FiO2 01/10/18 08:00 97.7 67 20 139/91 (107) 93 01/10/18 04:00 Nasal Cannula 4.00 01/10/18 04:00 98.1 71 18 143/63 (89) 91 01/10/18 04:00 69 01/10/18 00:00 72 01/10/18 00:00 Nasal Cannula 4.00 01/10/18 00:00 98.7 70 18 139/64 (89) 92 01/09/18 20:00 98.5 74 19 149/67 (94) 94 01/09/18 20:00 82 01/09/18 20:00 Nasal Cannula 4.00 01/09/18 16:24 Nasal Cannula 4.00 01/09/18 16:00 79 01/09/18 16:00 98.0 76 18 161/68 (99) 90 01/09/18 12:00 74 01/09/18 12:00 Nasal Cannula 4.00 01/09/18 12:00 98.3 76 18 141/65 (90) 91 (Jessica Clemons) -: 01/09/18 0743 01/09/18 0743 Physical Exam General Appearance: Well Nourished, No Acute Distress, Comfortable (Jessica Clemons) Eyes Eye Exam: Pupils Equal (Jessica Clemons) Pulmonary Resp Exam: Breath Sounds Equal, No Distress, Decreased Bases (Jessica Clemons) Cardiology CV Exam: Regular, Normal Sinus Rhythm (Jessica Clemons) Gastrointestinal/Abdomen GI Exam: Soft, Non-Tender, Bowel Sounds Present (Jessica Clemons) Genitourinary Exam: Flank Non-Tender (Jessica Clemons) Integumentary Skin Exam: Clear, Warm, Ulcer(s) (Jessica Clemons) Extremeties Extremities Exam: Pitting Edema (Jessica Clemons) Neurologic Neuro Exam: Alert, Awake (Jessica Clemons) Psychiatric Psych Exam: Appropriate Responses (Jessica Clemons) Assessment/Plan Discussed Condition With: Patient Assessment Summary: CKD Stage IV Problem List: (1) Renal insufficiency ICD Codes: N28.9 - Disorder of kidney and ureter, unspecified Plan: The patient has chronic kidney disease with proteinuria, most likely she has diabetic nephropathy BC growing Gram Positive, Staph. Coag. negative. On Vanco PO and Daptomycin Good UOP Weight is down. Renal US noted s/p thoracentesis with improvement in SOB Plan Continue to monitor I+O Continue Lasix 40 mg BID edema stable. Avoid nephrotoxins Once the kidney function is stabilized and she can be started on RUSS inhibitor, if her potassium is normal. BMP ordered . (2) Leukocytosis ICD Codes: D72.829 - Elevated white blood cell count, unspecified Status: Acute (3) Hypertension ICD Codes: I10 - Essential (primary) hypertension Status: Chronic Plan: Blood pressure improving Continue the same (4) Sepsis ICD Codes: A41.9 - Sepsis, unspecified organism Status: Resolved (5) Anemia ICD Codes: D64.9 - Anemia, unspecified Status: Chronic (6) Stage 4 chronic kidney disease ICD Codes: N18.4 - Chronic kidney disease, stage 4 (severe) (Jessica Clemons) Problem List: (1) Renal insufficiency ICD Codes: N28.9 - Disorder of kidney and ureter, unspecified Plan: The patient has chronic kidney disease with proteinuria, most likely she has diabetic nephropathy BC growing Gram Positive, Staph. Coag. negative. On Vanco PO and Daptomycin Good UOP Weight is down. Renal US noted s/p thoracentesis with improvement in SOB Plan Continue to monitor I+O Continue Lasix 40 mg BID edema stable. Avoid nephrotoxins Once the kidney function is stabilized and she can be started on RUSS inhibitor, if her potassium is normal. Patient seen and examined, agree with above. Creatinine is not improving, D/C metolazone. . (2) Leukocytosis ICD Codes: D72.829 - Elevated white blood cell count, unspecified Status: Acute (3) Hypertension ICD Codes: I10 - Essential (primary) hypertension Status: Chronic Plan: Blood pressure improving Continue the same (4) Sepsis ICD Codes: A41.9 - Sepsis, unspecified organism Status: Resolved (5) Anemia ICD Codes: D64.9 - Anemia, unspecified Status: Chronic (6) Stage 4 chronic kidney disease ICD Codes: N18.4 - Chronic kidney disease, stage 4 (severe) (Flavio Toro MD ) Problem Qualifiers (1) Hypertension: Qualified Codes: I10 - Essential (primary) hypertension Jessica Clemons Jan 10, 2018 09:10 Flavio Toro MD Jan 10, 2018 15:33
[2018-01-10 12:00] VITALS: BP 152/69; PULSE 75; PULSE 76; RESP 20; TEMP 97.5; O2SAT 92
[2018-01-10 12:38] LABS: BICARBONATE 27.4 MEQ/L (21.0-32.0); CALCIUM 8.7 MG/DL (8.5-10.1); CREATININE 3.13 MG/DL (0.50-1.00)
[2018-01-10 16:00] VITALS: BP 140/64; PULSE 67; PULSE 76; RESP 20; TEMP 97.4; O2SAT 92
--- NOTE | 2018-01-10 17:51 | HHI.PR ---
Subjective Remarks sob much improved. Patient c/o dizziness. Denies cp/sob. Mild nausea. Objective Vitals Vital Signs Date Time Temp Pulse Resp B/P (MAP) Pulse Ox O2 Delivery O2 Flow Rate FiO2 01/10/18 16:00 97.4 76 20 140/64 (89) 92 01/10/18 12:00 97.5 76 20 152/69 (96) 92 01/10/18 08:00 Nasal Cannula 4.00 Humidified 01/10/18 08:00 69 01/10/18 08:00 97.7 67 20 139/91 (107) 93 01/10/18 04:00 Nasal Cannula 4.00 01/10/18 04:00 98.1 71 18 143/63 (89) 91 01/10/18 04:00 69 01/10/18 00:00 72 01/10/18 00:00 Nasal Cannula 4.00 01/10/18 00:00 98.7 70 18 139/64 (89) 92 01/09/18 20:00 98.5 74 19 149/67 (94) 94 01/09/18 20:00 82 01/09/18 20:00 Nasal Cannula 4.00 I/O 01/09/18 01/09/18 01/09/18 01/10/18 01/10/18 01/10/18 07:00 15:00 23:00 07:00 15:00 23:00 Intake Total 1250 ml 480 ml 240 ml 480 ml Balance 1250 ml 480 ml 240 ml 480 ml Intake Oral 480 ml 240 ml 480 ml IV Total 150 ml Packed Cells 1100 ml # Voids 4 2 # Bowel Movements 4 2 Result Diagram: 01/09/18 0743 01/10/18 1136 Imaging Last Impressions Chest X-Ray 01/08/18 0000 Signed Impressions: Service Date/Time: Monday, January 08, 2018 10:59 - CONCLUSION: Stable lung exam. Lines consistent with congestive heart failure pulmonary edema and bilateral pleural effusions.. Seema Jones MD Thoracentesis Ultrasound 01/07/18 181 Signed Impressions: Service Date/Time: Sunday, January 07, 2018 13:11 - CONCLUSION: Uncomplicated ultrasound guided thoracentesis. Linwood Chadwick MD Renal Ultrasound 01/02/18 0000 Signed Impressions: Service Date/Time: Tuesday, January 02, 2018 14:33 - CONCLUSION: Left pleural effusion with sinusitis and possible fatty liver. KMabel King MD Head CT 12/28/17 0807 Signed Impressions: Service Date/Time: Thursday, December 28, 2017 09:04 - CONCLUSION: No acute disease. No significant change has occurred. Héctor Carmona MD Abdomen/Pelvis CT 12/28/17 0000 Signed Impressions: Service Date/Time: Thursday, December 28, 2017 09:07 - CONCLUSION: Stable abdomen. No evidence of free air and no evidence of obstruction. Large bilateral pleural effusions with ascites and anasarca. Diverticuli uncomplicated of the colon with diminished mural thickening of the colon suggesting improving colitis. Lim catheter in place in the urinary bladder. Héctor Carmona MD Objective Remarks GENERAL: patient sitting up in bed. Appears comfortable.alert and oriented 3. SKIN: Warm and dry. HEAD: Normocephalic. EYES: No scleral icterus. No injection or drainage. NECK: Supple, trachea midline. No JVD. CARDIOVASCULAR: Regular rate and rhythm without murmurs, gallops, or rubs. RESPIRATORY: Breath sounds equal bilaterally. No accessory muscle use. GASTROINTESTINAL: Abdomen soft, non-tender, nondistended. MUSCULOSKELETAL: No cyanosis. edema present and stable +1. Dependent edema continues. No erythema. Right leg wound dressed with dressing clean and dry and intact. BACK: Nontender without obvious deformity. No CVA tenderness. Procedures none Medications and IVs Current Medications Medications (Trade) Dose Ordered Sig/Marie Route Start Time Stop Time Status Last Admin (NS Flush) 2 ml UNSCH PRN IV FLUSH 12/28/17 10:45 (NS Flush) 2 ml BID IV FLUSH 12/28/17 21:00 01/10/18 08:26 (Zofran Inj) 4 mg Q6H PRN IVP 12/28/17 10:45 01/01/18 08:20 (Narcan Inj) 0.4 mg UNSCH PRN IV PUSH 12/28/17 10:45 (Milk Of Magnesia Liq) 30 ml Q12H PRN PO 12/28/17 10:45 (Senokot) 17.2 mg Q12H PRN PO 12/28/17 10:45 (Dulcolax Supp) 10 mg DAILY PRN RECTAL 12/28/17 10:45 (Lactulose Liq) 30 ml DAILY PRN PO 12/28/17 10:45 (D50w (Vial) Inj) 50 ml UNSCH PRN IV PUSH 12/28/17 10:45 01/01/18 08:38 (Glucagon Inj) 1 mg STAT PRN IM 12/28/17 10:45 (Aspirin Chew) 81 mg DAILY CHEW 12/29/17 09:00 01/10/18 08:25 (Lipitor) 40 mg HS PO 12/28/17 21:00 Future Hold 01/01/18 21:14 (Effient) 10 mg DAILY PO 12/29/17 09:00 01/10/18 08:25 (Heparin Inj) 5,000 units Q12HR SQ 12/28/17 21:00 01/10/18 08:26 ([place] 5-325 Mg) 1 tab Q6H PRN PO 12/28/17 20:45 01/10/18 13:10 Miscellaneous Information Patient in critical care unit? Ass... Q361D .XX 12/28/17 23:30 12/28/17 23:30 (Imdur) 60 mg DAILY@07 PO 12/31/17 07:00 01/10/18 05:22 (Catapres) 0.1 mg Q6H PRN PO 12/30/17 18:30 01/04/18 12:46 (Atrovent Neb) 0.5 mg Q6HR NEB PRN NEB 12/31/17 18:30 01/09/18 05:21 (Apresoline) 75 mg Q8HR PO 12/31/17 22:00 01/10/18 13:10 (Pill Splitter) 1 ea UNSCH PRN OTHER 12/31/17 18:45 (Procardia Xl) 30 mg Q12HR PO 01/01/18 21:00 01/10/18 08:24 (Aldactone) 12.5 mg DAILY PO 01/02/18 10:00 01/10/18 08:25 (NovoLOG SUPPLEMENTAL SCALE) 1 ACHS SLIDING SCALE SQ 01/02/18 12:00 01/10/18 13:10 Daptomycin 500 mg/ Sodium Chloride 100 ml @ 200 mls/hr Q48H IV 01/02/18 16:00 01/08/18 15:54 (Levemir Inj) 5 units Q12HR SQ 01/04/18 09:00 01/09/18 20:20 (Coreg) 6.25 mg Q12HR PO 01/04/18 21:00 01/10/18 08:24 (Cardura) 2 mg DAILY PO 01/05/18 09:00 01/09/18 08:40 (Cardura) 2 mg DAILY PO 01/05/18 09:00 01/10/18 08:33 (Vancomycin 25 Mg/ml Liq) 125 mg QID PO 01/07/18 14:46 01/10/18 13:10 (Tylenol) 650 mg Q4H PRN PO 01/08/18 10:30 (Benadryl) 25 mg Q4H PRN PO 01/08/18 10:30 (Lasix Inj) 40 mg Q12HR IV PUSH 01/08/18 21:00 01/10/18 08:26 A/P Problem List: (1) Sepsis ICD Code: A41.9 - Sepsis, unspecified organism Status: Resolved (2) Hypothermia ICD Code: T68.XXXA - Hypothermia, initial encounter Status: Resolved (3) Hypoglycemia ICD Code: E16.2 - Hypoglycemia, unspecified Status: Acute (4) IDDM (insulin dependent diabetes mellitus) ICD Code: E11.9 - Type 2 diabetes mellitus without complications; Z79.4 - intermediate (current) use of insulin Status: Chronic (5) Acute on chronic diastolic heart failure ICD Code: I50.33 - Acute on chronic diastolic (congestive) heart failure Status: Resolved (6) Severe protein-calorie malnutrition ICD Code: E43 - Unspecified severe protein-calorie malnutrition Status: Chronic (7) Bilateral pleural effusion ICD Code: J90 - Pleural effusion, not elsewhere classified Status: Acute (8) BPPV (benign paroxysmal positional vertigo) ICD Code: H81.10 - Benign paroxysmal vertigo, unspecified ear (9) CAD (coronary artery disease) ICD Code: I25.10 - Atherosclerotic heart disease of [place] coronary artery without angina pectoris Status: Chronic (10) HTN (hypertension) ICD Code: I10 - Essential (primary) hypertension Status: Chronic (11) COPD (chronic obstructive pulmonary disease) ICD Code: J44.9 - Chronic obstructive pulmonary disease, unspecified (12) Marijuana abuse ICD Code: F12.10 - Cannabis abuse, uncomplicated (13) Clostridium difficile colitis ICD Code: A04.7 - Enterocolitis due to Clostridium difficile Status: Resolved (14) Anemia ICD Code: D64.9 - Anemia, unspecified Assessment and Plan sepsis Bacteremia with gram-positive bacteria. Staph epi. Questionable etiology. With hypothermia, hypoglycemia. Right leg wound. Lactate within normal limits. CT with no acute abdominal findings, however marketed bilateral pleural effusions. Right leg wound, elevated ESR in the 40s. The patient was admitted to the intensive care unit. Placed on broad-spectrum antibiotics.. Blood cultures positive for staph epidermidis. Etiology questionable. Vancomycin discontinued on 01/02 due to renal insufficiency. Repeat blood cultures negative. The patient was on IV daptomycin. As per ID consultation and recommendations daptomycin should be administered until 01/08/18. 01/10 SP treament with Daptomycin. Discontinued. Hypothermia Elevated TSH on admission Hypothermia was treated with a bear hugger. Continue there are hugger is needed. Cortisol level and is suspected Prange. The patient was placed on IV hydrocortisone. Hypothermia improved. TSH was repeated and within normal range. Cortisol levels within suspected range. TSH elevation likely elevated due to stress and acute illness. Severe malnutrition. Patient tolerating diet. Encourage with Glucerna supplements. The patient was given IV abdomen which has been discontinued. Encourage by mouth intake. DM hypoglycemia on admission Hypoglycemia resolved after initiation of D50. The patient later became hypoglycemic and was placed on SSI with insulin. The patient then became hypoglycemic again in the 30s and Levemir was discontinued on 01/01. Blood sugars then started to improve and on 01/03 the patient's Levemir was increased to 5 minute units subcutaneously twice a day. Blood sugars stable, no further hypoglycemia. Continue SSI and insulin Levemir. CHF exacerbation BNP 1000. Bilateral lower extremity edema. Bilateral pleural effusions. We' ll order IV Lasix. Checked monitoring of intake and output. Appreciate nursing assistance. Continue IV diuretics as per nephrology. Bilateral pleural effusions Cardiology cannot clear patient to hold Effient due to recent drug-eluting stent. Expect these are secondary to CHF. Will continue to follow. 01/06 patient complains of shortness of breath, repeat chest x-ray shows increased bilateral pleural effusions mostly on the left. Discussed case with Dr eRddy - Effient should be discontinued only on life threatening situations. Will order us guided thoracentesis, this was discussed with pulmonology as well. 01/07 discussed the case with Dr Chadwick from radiology, the patient is short of breath with enlarging pleural effusion despite being on IV diuretics. The patient wishes to proceed with drainage of pleural effusion despite the risk of bleeding. Dr. Jules agreed and thoracentesis will be done. Appreciate pulmonary recommendations. 01/08 sp US guided thoracentesis with drainage of 800 cc of pleural fluid which looks noninfectious. CONOR on CKD Likely secondary to diabetic nephropathy. Renal function initially worsening. Today slightly improved. Nephrology consulted. Continue Aldactone 8, metolazone, IV Lasix and albumin. Edema is improving. 01/09 IV Lasix dose decreased as per nephrology to 40 mg IV BID. Continue to avoid nephrotoxins, monitor I's and O's and monitor BMP. 01/10 Creatinine slightly lower. Diuretics as per nephrology. Continue to monitor BUN/creatinine, history of cyanosis, avoid nephrotoxins. CAD. Uncontrolled hypertension Etiology was consulted. Patient blood pressure was severely elevated on 01/04 in the 200s range. Patient's Coreg dose was increased to 6.25 mg p.o. twice daily and the patient was started on Cardura 2 mg p.o. daily. The patient continued to have elevated blood pressure and Cardura dose was increased to 4 mg p.o. daily. 01/09 BP improving. Continue same dose of antihypertensive medications. The patient is currently on Coreg and Cardura. 01/10 BP more stable, continue antihypertensive medications as above. Benign paroxysmal postural vertigo The patient had nystagmus on exam and vertigo was resolved after Pedro maneuver. Suspect this is the cause of her intermittent nausea which leads to hypoglycemia Marijuana abuse. Cessation counseling provided. COPD. Not appear to be in acute exacerbation. Nebs as needed. C. difficile infection. Diarrhea has resolved. Continue oral vancomycin for a total of 14 days. Anemia. Likely anemia of chronic disease. Patient with CKD stage IV. Hemoglobin stable. The patient presented with hemoglobin of 10 on admission which dropped down to 8.1 and now is recovering. Last hemoglobin 8.5 on January 03, 2018. Continue to monitor H&H and transfuse as needed for hemoglobin 01/08 hemoglobin trended down to 7.3. I will transfuse 2 units of packed red blood cells and monitor hemoglobin post transfusion. Check stool guaiac. 01/09 Patient feels much better after blood transfusion. Hemoglobin responded appropriately. Continue to monitor hemoglobin. Upon review of her medical records the patient has been seen by Dr. Dodge from hematology in the past, status post bone marrow biopsy which showed low iron stains in the bone marrow, as per records due to iron deficiency as well as possible low-grade myelodysplasia. Bone marrow biopsy in April 2016 showed mildly hypocellular bone marrow with trilineage hypoplasia. Bone marrow biopsy September 2016 showed normal cellular bone marrow with trilineage hematopoiesis. Positive for stainable iron noted at the time. 01/10 Will start on oral iron. Right leg wound. Podiatry consulted. Recommended calcium alginate with silver dressing every 3 days. Elevate legs at all times. Recommend follow-up with Dr. Read at the wound center after discharge. No baths or showers. Sponge bathe only. Shortness of breath The patient is complaining of shortness of breath. Chest x-ray ordered to evaluate. Repeat chest x-ray reviewed by me shows moderate sized left pleural effusion and small right pleural effusion. Mild central pulmonary congestion. Cardiomegaly. Scattered atelectasis and/or infiltrates bilaterally. I will order an ultrasound-guided thoracentesis. As per cardiology - She had drug eluting stent in Jun 2017; Effient and ASA cannot be stopped unless life threatening emergency occur for 1 year. High risk of stent thrombosis off meds. 01/09 SP US guided thoracentesis. Shortness of breath improving. Discharge Planning Pending improvement of CONOR. Pending nephrology clearance. Problem Qualifiers (1) Hypothermia: Qualified Codes: T68.XXXD - Hypothermia, subsequent encounter (2) BPPV (benign paroxysmal positional vertigo): Qualified Codes: H81.10 - Benign paroxysmal vertigo, unspecified ear Rommel Russell MD Jan 10, 2018 17:51
[2018-01-10] MEDS ORDERED: MECLIZINE HCL 25 MG TAB PO ONE (18:15)
[2018-01-10] MEDS ORDERED: MECLIZINE HCL 25 MG TAB PO PRN (18:15)
--- NOTE | 2018-01-10 18:18 | PD.CARD.PN ---
Subjective Subjective Remarks No CP, still SOB, tolerated thoracentesis on AC well Objective Medications Current Medications Medications (Trade) Dose Ordered Sig/Marie Route Start Time Stop Time Status Last Admin (NS Flush) 2 ml UNSCH PRN IV FLUSH 12/28/17 10:45 (NS Flush) 2 ml BID IV FLUSH 12/28/17 21:00 01/10/18 08:26 (Zofran Inj) 4 mg Q6H PRN IVP 12/28/17 10:45 01/01/18 08:20 (Narcan Inj) 0.4 mg UNSCH PRN IV PUSH 12/28/17 10:45 (Milk Of Magnesia Liq) 30 ml Q12H PRN PO 12/28/17 10:45 (Senokot) 17.2 mg Q12H PRN PO 12/28/17 10:45 (Dulcolax Supp) 10 mg DAILY PRN RECTAL 12/28/17 10:45 (Lactulose Liq) 30 ml DAILY PRN PO 12/28/17 10:45 (D50w (Vial) Inj) 50 ml UNSCH PRN IV PUSH 12/28/17 10:45 01/01/18 08:38 (Glucagon Inj) 1 mg STAT PRN IM 12/28/17 10:45 (Aspirin Chew) 81 mg DAILY CHEW 12/29/17 09:00 01/10/18 08:25 (Lipitor) 40 mg HS PO 12/28/17 21:00 Future Hold 01/01/18 21:14 (Effient) 10 mg DAILY PO 12/29/17 09:00 01/10/18 08:25 (Heparin Inj) 5,000 units Q12HR SQ 12/28/17 21:00 01/10/18 08:26 ([place] 5-325 Mg) 1 tab Q6H PRN PO 12/28/17 20:45 01/10/18 13:10 Miscellaneous Information Patient in critical care unit? Ass... Q361D .XX 12/28/17 23:30 12/28/17 23:30 (Imdur) 60 mg DAILY@07 PO 12/31/17 07:00 01/10/18 05:22 (Catapres) 0.1 mg Q6H PRN PO 12/30/17 18:30 01/04/18 12:46 (Atrovent Neb) 0.5 mg Q6HR NEB PRN NEB 12/31/17 18:30 01/09/18 05:21 (Apresoline) 75 mg Q8HR PO 12/31/17 22:00 01/10/18 13:10 (Pill Splitter) 1 ea UNSCH PRN OTHER 12/31/17 18:45 (Procardia Xl) 30 mg Q12HR PO 01/01/18 21:00 01/10/18 08:24 (Aldactone) 12.5 mg DAILY PO 01/02/18 10:00 01/10/18 08:25 (NovoLOG SUPPLEMENTAL SCALE) 1 ACHS SLIDING SCALE SQ 01/02/18 12:00 01/10/18 17:53 (Levemir Inj) 5 units Q12HR SQ 01/04/18 09:00 01/09/18 20:20 (Coreg) 6.25 mg Q12HR PO 01/04/18 21:00 01/10/18 08:24 (Cardura) 2 mg DAILY PO 01/05/18 09:00 01/09/18 08:40 (Cardura) 2 mg DAILY PO 01/05/18 09:00 01/10/18 08:33 (Vancomycin 25 Mg/ml Liq) 125 mg QID PO 01/07/18 14:46 01/10/18 17:53 (Tylenol) 650 mg Q4H PRN PO 01/08/18 10:30 (Benadryl) 25 mg Q4H PRN PO 01/08/18 10:30 (Lasix Inj) 40 mg Q12HR IV PUSH 01/08/18 21:00 01/10/18 08:26 (Ferrous Sulfate) 325 mg BID PO 01/10/18 21:00 (Antivert) 25 mg ONCE ONCE PO 01/10/18 18:15 01/10/18 18:16 UNV (Antivert) 25 mg Q8H PRN PO 01/10/18 18:15 UNV Vital Signs / I&O Vital Signs Date Time Temp Pulse Resp B/P (MAP) Pulse Ox O2 Delivery O2 Flow Rate FiO2 01/10/18 16:00 97.4 76 20 140/64 (89) 92 01/10/18 12:00 97.5 76 20 152/69 (96) 92 01/10/18 08:00 Nasal Cannula 4.00 Humidified 01/10/18 08:00 69 01/10/18 08:00 97.7 67 20 139/91 (107) 93 01/10/18 04:00 Nasal Cannula 4.00 01/10/18 04:00 98.1 71 18 143/63 (89) 91 01/10/18 04:00 69 01/10/18 00:00 72 01/10/18 00:00 Nasal Cannula 4.00 01/10/18 00:00 98.7 70 18 139/64 (89) 92 01/09/18 20:00 98.5 74 19 149/67 (94) 94 01/09/18 20:00 82 01/09/18 20:00 Nasal Cannula 4.00 I/O 01/09/18 01/09/18 01/09/18 01/10/18 01/10/18 01/10/18 07:00 15:00 23:00 07:00 15:00 23:00 Intake Total 1250 ml 480 ml 240 ml 480 ml Balance 1250 ml 480 ml 240 ml 480 ml Intake Oral 480 ml 240 ml 480 ml IV Total 150 ml Packed Cells 1100 ml # Voids 4 2 # Bowel Movements 4 2 Physical Exam GENERAL: In NAD. SKIN: Warm and dry. HEAD: Normocephalic. EYES: No scleral icterus. No injection or drainage. NECK: Supple, trachea midline. No JVD or lymphadenopathy. CARDIOVASCULAR: Regular rate and rhythm without murmurs, gallops, or rubs. RESPIRATORY: Breath sounds equal bilaterally. No accessory muscle use. GASTROINTESTINAL: Abdomen soft, non-tender, nondistended. MUSCULOSKELETAL: No cyanosis, bilat LE edema Laboratory Laboratory Tests Test 01/10/18 11:36 Blood Urea Nitrogen 51 MG/DL Creatinine 3.13 MG/DL Random Glucose 164 MG/DL Calcium Level 8.7 MG/DL Sodium Level 141 MEQ/L Potassium Level 4.4 MEQ/L Chloride Level 106 MEQ/L Carbon Dioxide Level 27.4 MEQ/L Anion Gap 8 MEQ/L Estimat Glomerular Filtration Rate 15 ML/MIN Assessment and Plan Problem List: (1) Bradycardia ICD Codes: R00.1 - Bradycardia, unspecified Status: Acute (2) Altered mental status ICD Codes: R41.82 - Altered mental status, unspecified Status: Acute (3) Hypoglycemia ICD Codes: E16.2 - Hypoglycemia, unspecified Status: Acute (4) CHF (congestive heart failure) ICD Codes: I50.9 - Heart failure, unspecified (5) Renal insufficiency ICD Codes: N28.9 - Disorder of kidney and ureter, unspecified (6) DM (diabetes mellitus) ICD Codes: E11.9 - Type 2 diabetes mellitus without complications Status: Chronic (7) CAD (coronary artery disease) ICD Codes: I25.10 - Atherosclerotic heart disease of [place] coronary artery without angina pectoris Status: Chronic (8) Chronic kidney disease, stage 4 (severe) ICD Codes: N18.4 - Chronic kidney disease, stage 4 (severe) Status: Chronic (9) Bacteremia ICD Codes: R78.81 - Bacteremia (10) Clostridium difficile colitis ICD Codes: A04.7 - Enterocolitis due to Clostridium difficile Status: Resolved Assessment and Plan Still SOB, but less after thoracentesis (tolerated well). She had drug eluting stent in Jun 2017; Effient and ASA cannot be stopped unless life threatening emergency occur for 1 year. High risk of stent thrombosis off meds. Continue diuresis. Nephrology eval and mgmt. Increase activity. PT. convention services manager eval for placement once ready for discharge. Problem Qualifiers (1) Altered mental status: Qualified Codes: R40.0 - Somnolence (2) DM (diabetes mellitus): Qualified Codes: E11.628 - Type 2 diabetes mellitus with other skin complications; Z79.4 - termite helper (current) use of insulin (3) CAD (coronary artery disease): Qualified Codes: I25.10 - Atherosclerotic heart disease of [place] coronary artery without angina pectoris Dunia Reddy MD Jan 10, 2018 18:18
--- NOTE | 2018-01-10 19:31 | HHI.PR ---
Subjective Remarks 67 YOWF with CAD, s/p stent, COPD,Pl eff Had TC 800 cc fluid removed Doing well Breathing better On 3-4 LNC Objective Vital Signs Vital Signs Date Time Temp Pulse Resp B/P (MAP) Pulse Ox O2 Delivery O2 Flow Rate FiO2 01/10/18 16:00 Nasal Cannula 5.00 Humidified 01/10/18 16:00 97.4 76 20 140/64 (89) 92 01/10/18 16:00 67 01/10/18 12:00 97.5 76 20 152/69 (96) 92 01/10/18 12:00 75 01/10/18 08:00 Nasal Cannula 4.00 Humidified 01/10/18 08:00 69 01/10/18 08:00 97.7 67 20 139/91 (107) 93 01/10/18 04:00 Nasal Cannula 4.00 01/10/18 04:00 98.1 71 18 143/63 (89) 91 01/10/18 04:00 69 01/10/18 00:00 72 01/10/18 00:00 Nasal Cannula 4.00 01/10/18 00:00 98.7 70 18 139/64 (89) 92 01/09/18 20:00 98.5 74 19 149/67 (94) 94 01/09/18 20:00 82 01/09/18 20:00 Nasal Cannula 4.00 I/O 01/09/18 01/09/18 01/09/18 01/10/18 01/10/18 01/10/18 07:00 15:00 23:00 07:00 15:00 23:00 Intake Total 1250 ml 480 ml 240 ml 480 ml Output Total 500 ml Balance 1250 ml 480 ml 240 ml 480 ml -500 ml Intake Oral 480 ml 240 ml 480 ml IV Total 150 ml Packed Cells 1100 ml Output Urine Total 500 ml # Voids 4 2 # Bowel Movements 4 2 2 Result Diagram: 01/09/18 0743 01/10/18 1136 Objective Remarks GENERAL: MBMN WF,NAD SKIN: Warm and dry. HEAD: Normocephalic. EYES: No scleral icterus. No injection or drainage. NECK: Supple, trachea midline. No JVD or lymphadenopathy. CARDIOVASCULAR: Regular rate and rhythm without murmurs, gallops, or rubs. RESPIRATORY: Breath sounds equal bilaterally. No accessory muscle use. GASTROINTESTINAL: Abdomen soft, non-tender, nondistended. MUSCULOSKELETAL: No cyanosis, or edema. BACK: Nontender without obvious deformity. No CVA tenderness. A/P Assessment and Plan Pl eff, s/p TC CHF CAD, s/p stent COPD PLAN: Diurease Aerosol nebs Supplement 02 Cytology Negative DW pt Aaron Blankenship MD Jan 10, 2018 19:31
[2018-01-10 20:00] VITALS: BP 155/68; PULSE 73; PULSE 74; RESP 18; TEMP 98.6; O2SAT 92
[2018-01-10] MEDS: FERROUS SULFATE 325 MG (65 MG ELEMENTAL IRON) TAB PO SCH (21:27)
[2018-01-11] VITALS (9 sets, daily range): BP systolic 143–162; BP diastolic 63–74; PULSE 60–79; RESP 16–20; TEMP 97.4–99.1; O2SAT 91–95
[2018-01-11] MEDS: ACETAMINOPHEN/HYDROcodone 325 MG/5 MG TAB PO PRN ×3 (02:01→21:02)
[2018-01-11] MEDS: hydrALAZINE HCL 50 MG TAB PO SCH ×3 (05:24→20:57)
[2018-01-11] MEDS: ISOSORBIDE MONONITRATE 60 MG CR TAB (IMDUR) PO SCH (05:24)
[2018-01-11 05:56] LABS: HEMATOCRIT 28.7 % (35.0-46.0); HEMOGLOBIN 9.8 GM/DL (11.6-15.3); MEAN CORPUSCULAR HEMOGLOBIN 31.2 PG (27.0-34.0); MEAN CORPUSCULAR HGB CONC 34.3 % (32.0-36.0); MEAN PLATELET VOLUME 8.4 FL (7.0-11.0); PLATELET COUNT 245 TH/MM3 (150-450); RED BLOOD COUNT 3.16 MIL/MM3 (4.00-5.30); RED CELL DISTRIBUTION WIDTH 16.1 % (11.6-17.2); WHITE BLOOD COUNT 7.1 TH/MM3 (4.0-11.0)
[2018-01-11 05:58] LABS: BICARBONATE 24.2 MEQ/L (21.0-32.0); CALCIUM 8.7 MG/DL (8.5-10.1); CREATININE 3.01 MG/DL (0.50-1.00)
[2018-01-11] MEDS: FERROUS SULFATE 325 MG (65 MG ELEMENTAL IRON) TAB PO SCH ×2 (08:42→20:56)
[2018-01-11] MEDS: NIFEdipine 30 MG SUSTAINED RELEASE TAB PO SCH ×2 (08:42→20:56)
[2018-01-11] MEDS: PRASUGREL 10 MG TAB PO SCH (08:42)
[2018-01-11] MEDS: DOXAZOSIN MESYLATE 2 MG TAB PO SCH ×2 (08:42→08:43)
[2018-01-11] MEDS: CARVEDILOL 6.25 MG TAB PO SCH ×2 (08:42→20:56)
[2018-01-11] MEDS: SPIRONOLACTONE 25 MG TAB PO SCH (08:42)
[2018-01-11] MEDS: ASPIRIN 81 MG CHEW TAB CHEW SCH (08:42)
[2018-01-11] MEDS: HEPARIN SODIUM - SQ 10,000 UNITS/ML VIAL SQ SCH ×2 (08:42→20:57)
[2018-01-11] MEDS: INSULIN DETEMIR 100 UNITS/ML VIAL SQ SCH ×2 (08:43→20:57)
[2018-01-11] MEDS: FUROSEMIDE 40 MG/4 ML VIAL IV PUSH SCH ×2 (08:43→17:47)
[2018-01-11] MEDS: INSULIN ASPART SUPPLEMENTAL SCALE SQ SCH ×4 (08:43→20:58)
[2018-01-11] MEDS: VANCOMYCIN 25 MG/ML SUSP 100 ML BOTTLE PO SCH ×4 (08:43→20:56)
[2018-01-11] MEDS: SODIUM CHLORIDE 0.9% FLUSH 10 ML FLUSH IV FLUSH SCH ×2 (08:43→20:56)
--- NOTE | 2018-01-11 09:58 | RADRPT ---
EXAM DATE/TIME: 01/11/2018 09:24 [facility] COMPARISON: CHEST SINGLE AP, January 08, 2018, 10:59. INDICATIONS : Shortness of breath. MEDICAL HISTORY : Chronic obstructive pulmonary disease. Congestive heart failure.Coronary artery disease. SURGICAL HISTORY : Appendectomy. Hysterectomy. Coronary artery stent. Tonsillectomy ENCOUNTER: Subsequent ACUITY: 3 days PAIN SCORE: 0/10 LOCATION: Bilateral chest FINDINGS: A single view of the chest demonstrates persistent bibasilar airspace consolidation with associated e ffusions. Heart size is prominent. Osseous structures are intact. CONCLUSION: 1. Plain film findings characteristic of volume overload/congestive heart failure with bilateral pleu ral effusions and concomitant bibasilar atelectatic changes. 2. No significant change from prior. Preet Chavez MD on January 11, 2018 at 9:54 Board Certified Radiologist. This report was verified electronically.
--- NOTE | 2018-01-11 11:36 | HHI.PR ---
Subjective Remarks Patient still c/o shortness of breath although states better than before. Afebrile Still on high 02 ---> 5 liters nasal canula satin 95% on nasal canula. Denies cp. Objective Vitals Vital Signs Date Time Temp Pulse Resp B/P (MAP) Pulse Ox O2 Delivery O2 Flow Rate FiO2 01/11/18 10:11 76 01/11/18 08:00 98.8 74 20 143/63 (89) 91 01/11/18 05:42 99.1 74 16 145/67 (93) 92 01/11/18 04:29 71 01/11/18 00:19 98.8 74 16 152/72 (98) 92 01/11/18 00:00 74 01/10/18 20:00 98.6 74 18 155/68 (97) 92 01/10/18 20:00 73 01/10/18 20:00 Nasal Cannula 5.00 Humidified 01/10/18 16:00 Nasal Cannula 5.00 Humidified 01/10/18 16:00 97.4 76 20 140/64 (89) 92 01/10/18 16:00 67 01/10/18 12:00 97.5 76 20 152/69 (96) 92 01/10/18 12:00 75 I/O 01/10/18 01/10/18 01/10/18 01/11/18 01/11/18 01/11/18 07:00 15:00 23:00 07:00 15:00 23:00 Intake Total 240 ml 480 ml 120 ml Output Total 500 ml Balance 240 ml 480 ml -500 ml 120 ml Intake Oral 240 ml 480 ml 120 ml Output Urine Total 500 ml # Voids 2 13 # Bowel Movements 2 2 1 Result Diagram: 01/11/18 0522 01/11/18 0522 Imaging Last Impressions Chest X-Ray 01/11/18 0000 Signed Impressions: Service Date/Time: Thursday, January 11, 2018 09:24 - CONCLUSION: 1. Plain film findings characteristic of volume overload/congestive heart failure with bilateral pleural effusions and concomitant bibasilar atelectatic changes. 2. No significant change from prior. Preet Chavez MD Thoracentesis Ultrasound 01/07/181816 Signed Impressions: Service Date/Time: Sunday, January 07, 2018 13:11 - CONCLUSION: Uncomplicated ultrasound guided thoracentesis. Linwood Chadwick MD Renal Ultrasound 01/02/18 0000 Signed Impressions: Service Date/Time: Tuesday, January 02, 2018 14:33 - CONCLUSION: Left pleural effusion with sinusitis and possible fatty liver. Ernestine King MD Head CT 12/28/17 0807 Signed Impressions: Service Date/Time: Thursday, December 28, 2017 09:04 - CONCLUSION: No acute disease. No significant change has occurred. Héctor Carmona MD Abdomen/Pelvis CT 12/28/17 0000 Signed Impressions: Service Date/Time: Thursday, December 28, 2017 09:07 - CONCLUSION: Stable abdomen. No evidence of free air and no evidence of obstruction. Large bilateral pleural effusions with ascites and anasarca. Diverticuli uncomplicated of the colon with diminished mural thickening of the colon suggesting improving colitis. Lim catheter in place in the urinary bladder. Héctor Carmona MD Objective Remarks GENERAL: patient sitting up in bed. Appears comfortable.alert and oriented 3. SKIN: Warm and dry. HEAD: Normocephalic. EYES: No scleral icterus. No injection or drainage. NECK: Supple, trachea midline. No JVD. CARDIOVASCULAR: Regular rate and rhythm without murmurs, gallops, or rubs. RESPIRATORY: Breath sounds equal bilaterally. No accessory muscle use. GASTROINTESTINAL: Abdomen soft, non-tender, nondistended. MUSCULOSKELETAL: No cyanosis. edema present and stable +1. Dependent edema continues. No erythema. Right leg wound dressed with dressing clean and dry and intact. BACK: Nontender without obvious deformity. No CVA tenderness. Procedures none Medications and IVs Current Medications Medications (Trade) Dose Ordered Sig/Marie Route Start Time Stop Time Status Last Admin (NS Flush) 2 ml UNSCH PRN IV FLUSH 12/28/17 10:45 (NS Flush) 2 ml BID IV FLUSH 12/28/17 21:00 01/11/18 08:43 (Zofran Inj) 4 mg Q6H PRN IVP 12/28/17 10:45 01/01/18 08:20 (Narcan Inj) 0.4 mg UNSCH PRN IV PUSH 12/28/17 10:45 (Milk Of Magnesia Liq) 30 ml Q12H PRN PO 12/28/17 10:45 (Senokot) 17.2 mg Q12H PRN PO 12/28/17 10:45 (Dulcolax Supp) 10 mg DAILY PRN RECTAL 12/28/17 10:45 (Lactulose Liq) 30 ml DAILY PRN PO 12/28/17 10:45 (D50w (Vial) Inj) 50 ml UNSCH PRN IV PUSH 12/28/17 10:45 01/01/18 08:38 (Glucagon Inj) 1 mg STAT PRN IM 12/28/17 10:45 (Aspirin Chew) 81 mg DAILY CHEW 12/29/17 09:00 01/11/18 08:42 (Lipitor) 40 mg HS PO 12/28/17 21:00 Future Hold 01/01/18 21:14 (Effient) 10 mg DAILY PO 12/29/17 09:00 01/11/18 08:42 (Heparin Inj) 5,000 units Q12HR SQ 12/28/17 21:00 01/11/18 08:42 ([place] 5-325 Mg) 1 tab Q6H PRN PO 12/28/17 20:45 01/11/18 02:01 Miscellaneous Information Patient in critical care unit? Ass... Q361D .XX 12/28/17 23:30 12/28/17 23:30 (Imdur) 60 mg DAILY@07 PO 12/31/17 07:00 01/11/18 05:24 (Catapres) 0.1 mg Q6H PRN PO 12/30/17 18:30 01/04/18 12:46 (Atrovent Neb) 0.5 mg Q6HR NEB PRN NEB 12/31/17 18:30 01/09/18 05:21 (Apresoline) 75 mg Q8HR PO 12/31/17 22:00 01/11/18 05:24 (Pill Splitter) 1 ea UNSCH PRN OTHER 12/31/17 18:45 (Procardia Xl) 30 mg Q12HR PO 01/01/18 21:00 01/11/18 08:42 (Aldactone) 12.5 mg DAILY PO 01/02/18 10:00 01/11/18 08:42 (NovoLOG SUPPLEMENTAL SCALE) 1 ACHS SLIDING SCALE SQ 01/02/18 12:00 01/11/18 08:43 (Levemir Inj) 5 units Q12HR SQ 01/04/18 09:00 01/11/18 08:43 (Coreg) 6.25 mg Q12HR PO 01/04/18 21:00 01/11/18 08:42 (Cardura) 2 mg DAILY PO 01/05/18 09:00 01/09/18 08:40 (Cardura) 2 mg DAILY PO 01/05/18 09:00 01/11/18 08:42 (Vancomycin 25 Mg/ml Liq) 125 mg QID PO 01/07/18 14:46 01/11/18 08:43 (Tylenol) 650 mg Q4H PRN PO 01/08/18 10:30 (Benadryl) 25 mg Q4H PRN PO 01/08/18 10:30 (Lasix Inj) 40 mg Q12HR IV PUSH 01/08/18 21:00 01/11/18 08:43 (Ferrous Sulfate) 325 mg BID PO 01/10/18 21:00 01/11/18 08:42 (Antivert) 25 mg Q8H PRN PO 01/10/18 18:15 A/P Problem List: (1) Sepsis ICD Code: A41.9 - Sepsis, unspecified organism Status: Resolved (2) Hypothermia ICD Code: T68.XXXA - Hypothermia, initial encounter Status: Resolved (3) Hypoglycemia ICD Code: E16.2 - Hypoglycemia, unspecified Status: Acute (4) IDDM (insulin dependent diabetes mellitus) ICD Code: E11.9 - Type 2 diabetes mellitus without complications; Z79.4 - FDC (current) use of insulin Status: Chronic (5) Acute on chronic diastolic heart failure ICD Code: I50.33 - Acute on chronic diastolic (congestive) heart failure Status: Resolved (6) Severe protein-calorie malnutrition ICD Code: E43 - Unspecified severe protein-calorie malnutrition Status: Chronic (7) Bilateral pleural effusion ICD Code: J90 - Pleural effusion, not elsewhere classified Status: Acute (8) BPPV (benign paroxysmal positional vertigo) ICD Code: H81.10 - Benign paroxysmal vertigo, unspecified ear (9) CAD (coronary artery disease) ICD Code: I25.10 - Atherosclerotic heart disease of [place] coronary artery without angina pectoris Status: Chronic (10) HTN (hypertension) ICD Code: I10 - Essential (primary) hypertension Status: Chronic (11) COPD (chronic obstructive pulmonary disease) ICD Code: J44.9 - Chronic obstructive pulmonary disease, unspecified (12) Marijuana abuse ICD Code: F12.10 - Cannabis abuse, uncomplicated (13) Clostridium difficile colitis ICD Code: A04.7 - Enterocolitis due to Clostridium difficile Status: Resolved (14) Anemia ICD Code: D64.9 - Anemia, unspecified Assessment and Plan sepsis Bacteremia with gram-positive bacteria. Staph epi. Questionable etiology. With hypothermia, hypoglycemia. Right leg wound. Lactate within normal limits. CT with no acute abdominal findings, however marketed bilateral pleural effusions. Right leg wound, elevated ESR in the 40s. The patient was admitted to the intensive care unit. Placed on broad-spectrum antibiotics.. Blood cultures positive for staph epidermidis. Etiology questionable. Vancomycin discontinued on 01/02 due to renal insufficiency. Repeat blood cultures negative. The patient was on IV daptomycin. As per ID consultation and recommendations daptomycin should be administered until 01/08/18. 01/10 SP treament with Daptomycin. Discontinued. Hypothermia Elevated TSH on admission Hypothermia was treated with a bear hugger. Continue there are hugger is needed. Cortisol level and is suspected Prange. The patient was placed on IV hydrocortisone. Hypothermia improved. TSH was repeated and within normal range. Cortisol levels within suspected range. TSH elevation likely elevated due to stress and acute illness. Severe malnutrition. Patient tolerating diet. Encourage with Glucerna supplements. The patient was given IV abdomen which has been discontinued. Encourage by mouth intake. DM hypoglycemia on admission Hypoglycemia resolved after initiation of D50. The patient later became hypoglycemic and was placed on SSI with insulin. The patient then became hypoglycemic again in the 30s and Levemir was discontinued on 01/01. Blood sugars then started to improve and on 01/03 the patient's Levemir was increased to 5 minute units subcutaneously twice a day. Blood sugars stable, no further hypoglycemia. Continue SSI and insulin Levemir. CHF exacerbation BNP 1000. Bilateral lower extremity edema. Bilateral pleural effusions. We' ll order IV Lasix. Checked monitoring of intake and output. Appreciate nursing assistance. Continue IV diuretics as per nephrology. Bilateral pleural effusions Cardiology cannot clear patient to hold Effient due to recent drug-eluting stent. Expect these are secondary to CHF. Will continue to follow. 01/06 patient complains of shortness of breath, repeat chest x-ray shows increased bilateral pleural effusions mostly on the left. Discussed case with Dr Reddy - Effient should be discontinued only on life threatening situations. Will order us guided thoracentesis, this was discussed with pulmonology as well. 01/07 discussed the case with Dr Chadwick from radiology, the patient is short of breath with enlarging pleural effusion despite being on IV diuretics. The patient wishes to proceed with drainage of pleural effusion despite the risk of bleeding. Dr. Jules agreed and thoracentesis will be done. Appreciate pulmonary recommendations. 01/08 sp US guided thoracentesis with drainage of 800 cc of pleural fluid which looks noninfectious. 01/11 CXR repeated today and reviewed by me shows pulmonary vascular congestion and BL pleural effusions. Will order US chest for marking an to asses size of effusions. CONOR on CKD Likely secondary to diabetic nephropathy. Renal function initially worsening. Today slightly improved. Nephrology consulted. Continue Aldactone 8, metolazone, IV Lasix and albumin. Edema is improving. 01/09 IV Lasix dose decreased as per nephrology to 40 mg IV BID. Continue to avoid nephrotoxins, monitor I's and O's and monitor BMP. 01/10 Creatinine slightly lower. Diuretics as per nephrology. Continue to monitor BUN/creatinine, history of cyanosis, avoid nephrotoxins. 01/11 Increase Lasix to three times a day since patient fluid balance has been positive int he last two days and CXR still shows pulmonary vascular congestion. Will also place on fluid restriction. CAD. Uncontrolled hypertension Etiology was consulted. Patient blood pressure was severely elevated on 01/04 in the 200s range. Patient's Coreg dose was increased to 6.25 mg p.o. twice daily and the patient was started on Cardura 2 mg p.o. daily. The patient continued to have elevated blood pressure and Cardura dose was increased to 4 mg p.o. daily. BP controlled continue Cardura and Coreg. Benign paroxysmal postural vertigo The patient had nystagmus on exam and vertigo was resolved after Pedro maneuver. Suspect this is the cause of her intermittent nausea which leads to hypoglycemia Marijuana abuse. Cessation counseling provided. COPD. Not appear to be in acute exacerbation. Nebs as needed. C. difficile infection. Diarrhea has resolved. Continue oral vancomycin for a total of 14 days. Anemia. Likely anemia of chronic disease. Patient with CKD stage IV. Hemoglobin stable. The patient presented with hemoglobin of 10 on admission which dropped down to 8.1 and now is recovering. Last hemoglobin 8.5 on January 03, 2018. Continue to monitor H&H and transfuse as needed for hemoglobin 01/08 hemoglobin trended down to 7.3. I will transfuse 2 units of packed red blood cells and monitor hemoglobin post transfusion. Check stool guaiac. 01/09 Patient feels much better after blood transfusion. Hemoglobin responded appropriately. Continue to monitor hemoglobin. Upon review of her medical records the patient has been seen by Dr. Dodge from hematology in the past, status post bone marrow biopsy which showed low iron stains in the bone marrow, as per records due to iron deficiency as well as possible low-grade myelodysplasia. Bone marrow biopsy in April 2016 showed mildly hypocellular bone marrow with trilineage hypoplasia. Bone marrow biopsy September 2016 showed normal cellular bone marrow with trilineage hematopoiesis. Positive for stainable iron noted at the time. 01/11 continue oral iron. Right leg wound. Podiatry consulted. Recommended calcium alginate with silver dressing every 3 days. Elevate legs at all times. Recommend follow-up with Dr. Read at the wound center after discharge. No baths or showers. Sponge bathe only. Acute Hypoxemic respiratory failure. The patient is complaining of shortness of breath. Chest x-ray ordered to evaluate. Repeat chest x-ray reviewed by me shows moderate sized left pleural effusion and small right pleural effusion. Mild central pulmonary congestion. Cardiomegaly. Scattered atelectasis and/or infiltrates bilaterally. I will order an ultrasound-guided thoracentesis. As per cardiology - She had drug eluting stent in Jun 2017; Effient and ASA cannot be stopped unless life threatening emergency occur for 1 year. High risk of stent thrombosis off meds. 01/11 SP us guided thoracentesis with drinage of 800 cc of fluid from the left lung. I will start ther patient on IV Solumedrol since there is decreased breath sounds more prominent on expiration on physical exam. I will also increase Lasix to 40 mg IV Q8 hrs. Will order repeat chest US to evaluate for size of effusions. Patient needs aggressive diuresis watching out for creatinine which is now down trending. Pulmonary following. Discharge Planning Pending improvement of CONOR. Pending nephrology clearance. Problem Qualifiers (1) Hypothermia: Qualified Codes: T68.XXXD - Hypothermia, subsequent encounter (2) BPPV (benign paroxysmal positional vertigo): Qualified Codes: H81.10 - Benign paroxysmal vertigo, unspecified ear Rommel Russell MD Jan 11, 2018 11:36
[2018-01-11] MEDS: methylPREDNISolone SOD SUCC 40 MG/1 ML VIAL IV PUSH SCH ×2 (13:52→17:48)
--- NOTE | 2018-01-11 15:51 | RADRPT ---
EXAM DATE/TIME: 01/11/2018 14:01 [facility] COMPARISON: US CHEST RIGHT, October 02, 2017, 14:22. INDICATIONS : Right pleural effusion. MEDICAL HISTORY : Myocardial infarction. Congestive heart failure. Hypercholesterolemia. Dentures. Neuropathy. Coronary artery disease. Anticoagulant therapy. Atrial fibrillation. COPD. Asthma. Dyspnea. Hiatal hernia. Ar thritis. Diabetes. C-diff. MRSA. SURGICAL HISTORY : Tonsillectomy. Coronary artery stent. Appendectomy. Adenoidectomy. Hysterectomy. Back surgery. Gangli on cyst. ENCOUNTER: Subsequent ACUITY: 1 day PAIN SCORE: 3/10 LOCATION: Right chest MEASUREMENTS: SKIN TO PARIETAL PLEURA: 1.6 cm SKIN TO MAX SAFE DEPTH: 4.1 cm ESTIMATED FLUID VOLUME: 727 cc FLUID COMPOSITION: simple FINDINGS: Pleural effusion as above. A yoav was placed on the skin surface superficial to the pleural fluid col lection. CONCLUSION: Moderate size right pleural effusion. This is simple in appearance. Dewayne Donaldson Jr., MD on January 11, 2018 at 15:48 Board Certified Radiologist. This report was verified electronically.
--- NOTE | 2018-01-11 15:52 | RADRPT ---
EXAM DATE/TIME: 01/11/2018 14:06 [facility] COMPARISON: US CHEST LEFT, October 02, 2017, 14:26. INDICATIONS : Left pleural effusion. MEDICAL HISTORY : Myocardial infarction. Congestive heart failure. Hypercholesterolemia. Dentures. Neuropathy. Coronary artery disease. Anticoagulant therapy. Atrial fibrillation. COPD. Asthma. Dyspnea. Hiatal hernia. Ar thritis. Diabetes. C-diff. MRSA. SURGICAL HISTORY : Tonsillectomy. Coronary artery stent. Appendectomy. Adenoidectomy. Hysterectomy. Back surgery. Gangli on cyst. ENCOUNTER: Subsequent ACUITY: 1 day PAIN SCORE: 4/10 LOCATION: Left chest MEASUREMENTS: SKIN TO PARIETAL PLEURA: 3.0 cm SKIN TO MAX SAFE DEPTH: 5.3 cm ESTIMATED FLUID VOLUME: 1022 cc FLUID COMPOSITION: simple FINDINGS: Pleural effusion as above. A yoav was placed on the skin surface superficial to the pleural fluid col lection. Moderate to large left effusion. It is simple in appearance. CONCLUSION: Moderate to large simple left effusion. Dewayne Donaldson Jr., MD on January 11, 2018 at 15:48 Board Certified Radiologist. This report was verified electronically.
--- NOTE | 2018-01-11 16:46 | PD.CARD.PN ---
Subjective Subjective Remarks No CP, less SOB, feels better Objective Medications Current Medications Medications (Trade) Dose Ordered Sig/Marie Route Start Time Stop Time Status Last Admin (NS Flush) 2 ml UNSCH PRN IV FLUSH 12/28/17 10:45 (NS Flush) 2 ml BID IV FLUSH 12/28/17 21:00 01/11/18 08:43 (Zofran Inj) 4 mg Q6H PRN IVP 12/28/17 10:45 01/01/18 08:20 (Narcan Inj) 0.4 mg UNSCH PRN IV PUSH 12/28/17 10:45 (Milk Of Magnesia Liq) 30 ml Q12H PRN PO 12/28/17 10:45 (Senokot) 17.2 mg Q12H PRN PO 12/28/17 10:45 (Dulcolax Supp) 10 mg DAILY PRN RECTAL 12/28/17 10:45 (Lactulose Liq) 30 ml DAILY PRN PO 12/28/17 10:45 (D50w (Vial) Inj) 50 ml UNSCH PRN IV PUSH 12/28/17 10:45 01/01/18 08:38 (Glucagon Inj) 1 mg STAT PRN IM 12/28/17 10:45 (Aspirin Chew) 81 mg DAILY CHEW 12/29/17 09:00 01/11/18 08:42 (Lipitor) 40 mg HS PO 12/28/17 21:00 Future Hold 01/01/18 21:14 (Effient) 10 mg DAILY PO 12/29/17 09:00 01/11/18 08:42 (Heparin Inj) 5,000 units Q12HR SQ 12/28/17 21:00 01/11/18 08:42 ([place] 5-325 Mg) 1 tab Q6H PRN PO 12/28/17 20:45 01/11/18 14:11 Miscellaneous Information Patient in critical care unit? Ass... Q361D .XX 12/28/17 23:30 12/28/17 23:30 (Imdur) 60 mg DAILY@07 PO 12/31/17 07:00 01/11/18 05:24 (Catapres) 0.1 mg Q6H PRN PO 12/30/17 18:30 01/04/18 12:46 (Atrovent Neb) 0.5 mg Q6HR NEB PRN NEB 12/31/17 18:30 01/09/18 05:21 (Apresoline) 75 mg Q8HR PO 12/31/17 22:00 01/11/18 13:51 (Pill Splitter) 1 ea UNSCH PRN OTHER 12/31/17 18:45 (Procardia Xl) 30 mg Q12HR PO 01/01/18 21:00 01/11/18 08:42 (Aldactone) 12.5 mg DAILY PO 01/02/18 10:00 01/11/18 08:42 (NovoLOG SUPPLEMENTAL SCALE) 1 ACHS SLIDING SCALE SQ 01/02/18 12:00 01/11/18 13:54 (Levemir Inj) 5 units Q12HR SQ 01/04/18 09:00 01/11/18 08:43 (Coreg) 6.25 mg Q12HR PO 01/04/18 21:00 01/11/18 08:42 (Cardura) 2 mg DAILY PO 01/05/18 09:00 01/09/18 08:40 (Cardura) 2 mg DAILY PO 01/05/18 09:00 01/11/18 08:42 (Vancomycin 25 Mg/ml Liq) 125 mg QID PO 01/07/18 14:46 01/11/18 13:52 (Tylenol) 650 mg Q4H PRN PO 01/08/18 10:30 (Benadryl) 25 mg Q4H PRN PO 01/08/18 10:30 (Ferrous Sulfate) 325 mg BID PO 01/10/18 21:00 01/11/18 08:42 (Antivert) 25 mg Q8H PRN PO 01/10/18 18:15 (SoluMEDROL INJ) 40 mg Q6HR IV PUSH 01/11/18 12:00 01/11/18 13:52 (Lasix Inj) 40 mg Q8H IV PUSH 01/11/18 17:00 Vital Signs / I&O Vital Signs Date Time Temp Pulse Resp B/P (MAP) Pulse Ox O2 Delivery O2 Flow Rate FiO2 01/11/18 12:00 97.4 67 20 154/70 (98) 95 01/11/18 12:00 60 01/11/18 10:11 76 01/11/18 08:00 Nasal Cannula 5.00 Humidified 01/11/18 08:00 98.8 74 20 143/63 (89) 91 01/11/18 05:42 99.1 74 16 145/67 (93) 92 01/11/18 04:29 71 01/11/18 00:19 98.8 74 16 152/72 (98) 92 01/11/18 00:00 74 01/10/18 20:00 98.6 74 18 155/68 (97) 92 01/10/18 20:00 73 01/10/18 20:00 Nasal Cannula 5.00 Humidified I/O 01/10/18 01/10/18 01/10/18 01/11/18 01/11/18 01/11/18 07:00 15:00 23:00 07:00 15:00 23:00 Intake Total 240 ml 480 ml 120 ml 240 ml Output Total 500 ml Balance 240 ml 480 ml -500 ml 120 ml 240 ml Intake Oral 240 ml 480 ml 120 ml 240 ml Output Urine Total 500 ml # Voids 2 13 3 # Bowel Movements 2 2 1 1 Physical Exam GENERAL: In NAD. SKIN: Warm and dry. HEAD: Normocephalic. EYES: No scleral icterus. No injection or drainage. NECK: Supple, trachea midline. No JVD or lymphadenopathy. CARDIOVASCULAR: Regular rate and rhythm without murmurs, gallops, or rubs. RESPIRATORY: Breath sounds equal bilaterally. No accessory muscle use. GASTROINTESTINAL: Abdomen soft, non-tender, nondistended. MUSCULOSKELETAL: No cyanosis, bilat LE edema Laboratory Laboratory Tests Test 01/11/18 05:22 White Blood Count 7.1 TH/MM3 Red Blood Count 3.16 MIL/MM3 Hemoglobin 9.8 GM/DL Hematocrit 28.7 % Mean Corpuscular Volume 91.0 FL Mean Corpuscular Hemoglobin 31.2 PG Mean Corpuscular Hemoglobin Concent 34.3 % Red Cell Distribution Width 16.1 % Platelet Count 245 TH/MM3 Mean Platelet Volume 8.4 FL Blood Urea Nitrogen 54 MG/DL Creatinine 3.01 MG/DL Random Glucose 169 MG/DL Calcium Level 8.7 MG/DL Sodium Level 140 MEQ/L Potassium Level 5.1 MEQ/L Chloride Level 109 MEQ/L Carbon Dioxide Level 24.2 MEQ/L Anion Gap 7 MEQ/L Estimat Glomerular Filtration Rate 16 ML/MIN Imaging Last 24 hours Impressions Chest X-Ray 01/11/18 0000 Signed Impressions: Service Date/Time: Thursday, January 11, 2018 09:24 - CONCLUSION: 1. Plain film findings characteristic of volume overload/congestive heart failure with bilateral pleural effusions and concomitant bibasilar atelectatic changes. 2. No significant change from prior. Preet Chavez MD Chest Ultrasound 01/11/18 0000 Signed Impressions: Service Date/Time: Thursday, January 11, 2018 14:01 - CONCLUSION: Moderate size right pleural effusion. This is simple in appearance. Dewayne Donaldson Jr., MD Chest Ultrasound 01/11/18 0000 Signed Impressions: Service Date/Time: Thursday, January 11, 2018 14:06 - CONCLUSION: Moderate to large simple left effusion. Dewayne Donaldson Jr., MD Assessment and Plan Problem List: (1) Bradycardia ICD Codes: R00.1 - Bradycardia, unspecified Status: Acute (2) Altered mental status ICD Codes: R41.82 - Altered mental status, unspecified Status: Acute (3) Hypoglycemia ICD Codes: E16.2 - Hypoglycemia, unspecified Status: Acute (4) CHF (congestive heart failure) ICD Codes: I50.9 - Heart failure, unspecified (5) Renal insufficiency ICD Codes: N28.9 - Disorder of kidney and ureter, unspecified (6) DM (diabetes mellitus) ICD Codes: E11.9 - Type 2 diabetes mellitus without complications Status: Chronic (7) CAD (coronary artery disease) ICD Codes: I25.10 - Atherosclerotic heart disease of [place] coronary artery without angina pectoris Status: Chronic (8) Chronic kidney disease, stage 4 (severe) ICD Codes: N18.4 - Chronic kidney disease, stage 4 (severe) Status: Chronic (9) Bacteremia ICD Codes: R78.81 - Bacteremia (10) Clostridium difficile colitis ICD Codes: A04.7 - Enterocolitis due to Clostridium difficile Status: Resolved Assessment and Plan SOB improving. Continue current program including diuresis. She had drug eluting stent in Jun 2017; Effient and ASA cannot be stopped unless life threatening emergency occur for 1 year. High risk of stent thrombosis off meds. Nephrology eval and mgmt. Increase activity. PT. information services manager eval for placement once ready for discharge, doubt she can go back to her current home environment. Problem Qualifiers (1) Altered mental status: Qualified Codes: R40.0 - Somnolence (2) DM (diabetes mellitus): Qualified Codes: E11.628 - Type 2 diabetes mellitus with other skin complications; Z79.4 - correction (current) use of insulin (3) CAD (coronary artery disease): Qualified Codes: I25.10 - Atherosclerotic heart disease of [place] coronary artery without angina pectoris Dunia Reddy MD Jan 11, 2018 16:45
--- NOTE | 2018-01-11 19:16 | HHI.PR ---
Subjective Remarks 67 YOWF with CAD, s/p stent, COPD,Pl eff Feels sob again US chest bilat pl eff, R.L On 3-4 LNC Objective Vital Signs Vital Signs Date Time Temp Pulse Resp B/P (MAP) Pulse Ox O2 Delivery O2 Flow Rate FiO2 01/11/18 16:00 60 01/11/18 16:00 98.2 65 20 146/67 (93) 93 01/11/18 12:00 97.4 67 20 154/70 (98) 95 01/11/18 12:00 60 01/11/18 10:11 76 01/11/18 08:00 Nasal Cannula 5.00 Humidified 01/11/18 08:00 98.8 74 20 143/63 (89) 91 01/11/18 05:42 99.1 74 16 145/67 (93) 92 01/11/18 04:29 71 01/11/18 00:19 98.8 74 16 152/72 (98) 92 01/11/18 00:00 74 01/10/18 20:00 98.6 74 18 155/68 (97) 92 01/10/18 20:00 73 01/10/18 20:00 Nasal Cannula 5.00 Humidified I/O 01/10/18 01/10/18 01/10/18 01/11/18 01/11/18 01/11/18 07:00 15:00 23:00 07:00 15:00 23:00 Intake Total 240 ml 480 ml 120 ml 240 ml Output Total 500 ml Balance 240 ml 480 ml -500 ml 120 ml 240 ml Intake Oral 240 ml 480 ml 120 ml 240 ml Output Urine Total 500 ml # Voids 2 13 3 # Bowel Movements 2 2 1 1 Result Diagram: 01/11/1852101/11/18521 Objective Remarks GENERAL: MBMN WF,NAD SKIN: Warm and dry. HEAD: Normocephalic. EYES: No scleral icterus. No injection or drainage. NECK: Supple, trachea midline. No JVD or lymphadenopathy. CARDIOVASCULAR: Regular rate and rhythm without murmurs, gallops, or rubs. RESPIRATORY: Breath sounds equal bilaterally. No accessory muscle use. GASTROINTESTINAL: Abdomen soft, non-tender, nondistended. MUSCULOSKELETAL: No cyanosis, or edema. BACK: Nontender without obvious deformity. No CVA tenderness. A/P Assessment and Plan Pl eff, s/p TC CHF CAD, s/p stent COPD PLAN: Diurease Aerosol nebs Supplement 02 Cytology Negative DW pt Will need US guided Right TC Aaron Blankenship MD Jan 11, 2018 19:16
--- NOTE | 2018-01-11 19:25 | HHI.NPPN ---
Subjective History of Present Illness This is a 67-year-old female known to me from before, has been following with me in the office with past medical history of hypertension, ischemic heart disease, congestive heart failure, diabetes mellitus, chronic obstructive pulmonary disease, chronic anemia, hyperlipidemia, chronic kidney disease, came to the hospital with low blood sugar. I was called to see the patient because of elevated BUN and creatinine. The patient has known history of chronic kidney disease. Her baseline creatinine is around 1.6-1.8. She came in with creatinine of 1.6 and it has gone up to 2.0 and 2.1. The patient was hypotensive on admission and also she has bradycardia and she was hypothermic. She is much better now, her sugar has gone up after given the D50 and she is currently sitting in the chair with nasal cannula. She has mild shortness of breath. According to her the swelling in the leg has been improving but she still has a lot of edema in the legs. She denies any headache or dizziness at present. No chest pain. She has mild cough which is mainly dry. No history of dysuria, hematuria, difficulty passing urine. Additional Remarks Patient is alert and oriented, has again SOB, with nasal cannula. Review of Systems Respiratory Respiratory Remarks SOB improved Cardiovascular Cardiac Remarks Denies CP Gastrointestinal GI Remarks No abdominal pain Objective Data Data 01/11/18 01/12/18 19:00 07:00 Intake Total 240 ml Balance 240 ml Intake Oral 240 ml # Voids 3 # Bowel Movements 1 Vital Signs Date Time Temp Pulse Resp B/P (MAP) Pulse Ox O2 Delivery O2 Flow Rate FiO2 01/11/18 16:00 60 01/11/18 16:00 98.2 65 20 146/67 (93) 93 01/11/18 12:00 97.4 67 20 154/70 (98) 95 01/11/18 12:00 60 01/11/18 10:11 76 01/11/18 08:00 Nasal Cannula 5.00 Humidified 01/11/18 08:00 98.8 74 20 143/63 (89) 91 01/11/18 05:42 99.1 74 16 145/67 (93) 92 01/11/18 04:29 71 01/11/18 00:19 98.8 74 16 152/72 (98) 92 01/11/18 00:00 74 01/10/18 20:00 98.6 74 18 155/68 (97) 92 01/10/18 20:00 73 01/10/18 20:00 Nasal Cannula 5.00 Humidified -: 01/11/18 0522 01/11/18 0522 Physical Exam General Appearance: Well Nourished, No Acute Distress, Comfortable Eyes Eye Exam: Pupils Equal Pulmonary Resp Exam: Breath Sounds Equal, No Distress, Decreased Bases Cardiology CV Exam: Regular, Normal Sinus Rhythm Gastrointestinal/Abdomen GI Exam: Soft, Non-Tender, Bowel Sounds Present Genitourinary Exam: Flank Non-Tender Integumentary Skin Exam: Clear, Warm, Ulcer(s) Extremeties Extremities Exam: Pitting Edema Neurologic Neuro Exam: Alert, Awake Psychiatric Psych Exam: Appropriate Responses Assessment/Plan Discussed Condition With: Patient Assessment Summary: CKD Stage IV Problem List: (1) Renal insufficiency ICD Codes: N28.9 - Disorder of kidney and ureter, unspecified Plan: The patient has chronic kidney disease with proteinuria, most likely she has diabetic nephropathy BC growing Gram Positive, Staph. Coag. negative. On Vanco PO and Daptomycin Good UOP Weight is down. Renal US noted s/p thoracentesis with improvement in SOB Plan Continue to monitor I+O Continue Lasix 40 mg BID edema stable. Avoid nephrotoxins Once the kidney function is stabilized and she can be started on RUSS inhibitor, if her potassium is normal. Creatinine is slightly better. Lasix increased to Q8hr. Chest U/S noted, has increasing Left Pleural effusion. . (2) Leukocytosis ICD Codes: D72.829 - Elevated white blood cell count, unspecified Status: Acute (3) Hypertension ICD Codes: I10 - Essential (primary) hypertension Status: Chronic Plan: Blood pressure improving Continue the same (4) Sepsis ICD Codes: A41.9 - Sepsis, unspecified organism Status: Resolved (5) Anemia ICD Codes: D64.9 - Anemia, unspecified Status: Chronic (6) Stage 4 chronic kidney disease ICD Codes: N18.4 - Chronic kidney disease, stage 4 (severe) Problem Qualifiers (1) Hypertension: Qualified Codes: I10 - Essential (primary) hypertension Flavio Toro MD Jan 11, 2018 19:25
[2018-01-12] VITALS (12 sets, daily range): BP systolic 144–163; BP diastolic 67–73; PULSE 71–83; RESP 14–20; TEMP 96.7–98.3; O2SAT 91–98
[2018-01-12] MEDS: methylPREDNISolone SOD SUCC 40 MG/1 ML VIAL IV PUSH SCH ×3 (01:16→11:35)
[2018-01-12] MEDS: FUROSEMIDE 40 MG/4 ML VIAL IV PUSH SCH ×3 (01:16→16:39)
[2018-01-12] MEDS: hydrALAZINE HCL 50 MG TAB PO SCH ×3 (05:27→20:51)
[2018-01-12] MEDS: ACETAMINOPHEN/HYDROcodone 325 MG/5 MG TAB PO PRN ×2 (05:27→23:58)
[2018-01-12] MEDS: ISOSORBIDE MONONITRATE 60 MG CR TAB (IMDUR) PO SCH (05:30)
[2018-01-12] MEDS: DOXAZOSIN MESYLATE 2 MG TAB PO SCH ×2 (07:46→09:04)
[2018-01-12] MEDS: HEPARIN SODIUM - SQ 10,000 UNITS/ML VIAL SQ SCH ×2 (09:00→20:50)
[2018-01-12] MEDS: NIFEdipine 30 MG SUSTAINED RELEASE TAB PO SCH ×2 (09:04→20:52)
[2018-01-12] MEDS: SPIRONOLACTONE 25 MG TAB PO SCH (09:04)
[2018-01-12] MEDS: CARVEDILOL 6.25 MG TAB PO SCH ×2 (09:04→20:50)
[2018-01-12] MEDS: PRASUGREL 10 MG TAB PO SCH (09:04)
[2018-01-12] MEDS: FERROUS SULFATE 325 MG (65 MG ELEMENTAL IRON) TAB PO SCH ×2 (09:04→20:50)
[2018-01-12] MEDS: ASPIRIN 81 MG CHEW TAB CHEW SCH (09:04)
[2018-01-12] MEDS: SODIUM CHLORIDE 0.9% FLUSH 10 ML FLUSH IV FLUSH SCH ×2 (09:05→20:51)
[2018-01-12] MEDS: INSULIN ASPART SUPPLEMENTAL SCALE SQ SCH ×4 (09:06→20:51)
[2018-01-12] MEDS: VANCOMYCIN 25 MG/ML SUSP 100 ML BOTTLE PO SCH ×4 (09:07→20:52)
[2018-01-12] MEDS: INSULIN DETEMIR 100 UNITS/ML VIAL SQ SCH ×2 (09:07→20:52)
[2018-01-12 10:08] LABS: PROTHROMBIN TIME - PATIENT 10.2 SEC (9.8-11.6)
--- NOTE | 2018-01-12 12:40 | HHI.PR ---
Subjective Remarks Follow-up sepsis/bilateral pleural effusion 01/12/17-patient seen and examined, complains of shortness of breath and requires 5 L nasal cannula oxygen. Plan for right thoracentesis today Objective Vitals Vital Signs Date Time Temp Pulse Resp B/P (MAP) Pulse Ox O2 Delivery O2 Flow Rate FiO2 01/12/18 08:27 97.9 73 18 150/67 (94) 94 01/12/18 07:53 74 01/12/18 04:00 98.3 75 16 163/73 (103) 95 01/12/18 04:00 71 01/12/18 00:00 98.0 73 16 156/67 (96) 96 01/12/18 00:00 72 01/11/18 20:00 71 01/11/18 20:00 Nasal Cannula 5.00 Humidified 01/11/18 20:00 97.8 79 16 162/74 (103) 93 01/11/18 16:00 60 01/11/18 16:00 98.2 65 20 146/67 (93) 93 I/O 01/11/18 01/11/18 01/11/18 01/12/18 01/12/18 01/12/18 07:00 15:00 23:00 07:00 15:00 23:00 Intake Total 120 ml 240 ml Output Total 1700 ml Balance 120 ml 240 ml -1700 ml Intake Oral 120 ml 240 ml Output Urine Total 1700 ml # Voids 13 3 # Bowel Movements 1 1 2 Result Diagram: 01/11/18 0522 01/11/18 0522 Imaging Last Impressions Chest X-Ray 01/11/18 0000 Signed Impressions: Service Date/Time: Thursday, January 11, 2018 09:24 - CONCLUSION: 1. Plain film findings characteristic of volume overload/congestive heart failure with bilateral pleural effusions and concomitant bibasilar atelectatic changes. 2. No significant change from prior. Preet Chavez MD Chest Ultrasound 01/11/18 0000 Signed Impressions: Service Date/Time: Thursday, January 11, 2018 14:01 - CONCLUSION: Moderate size right pleural effusion. This is simple in appearance. Dewayne Donaldson Jr., MD Thoracentesis Ultrasound 01/07/18 1817 Signed Impressions: Service Date/Time: Sunday, January 07, 2018 13:11 - CONCLUSION: Uncomplicated ultrasound guided thoracentesis. Linwood Chadwick MD Renal Ultrasound 01/02/18 0000 Signed Impressions: Service Date/Time: Tuesday, January 02, 2018 14:33 - CONCLUSION: Left pleural effusion with sinusitis and possible fatty liver. Ernestine King MD Head CT 12/28/17 0807 Signed Impressions: Service Date/Time: Thursday, December 28, 2017 09:04 - CONCLUSION: No acute disease. No significant change has occurred. Héctor Carmona MD Abdomen/Pelvis CT 12/28/17 0000 Signed Impressions: Service Date/Time: Thursday, December 28, 2017 09:07 - CONCLUSION: Stable abdomen. No evidence of free air and no evidence of obstruction. Large bilateral pleural effusions with ascites and anasarca. Diverticuli uncomplicated of the colon with diminished mural thickening of the colon suggesting improving colitis. Lim catheter in place in the urinary bladder. Héctor Carmona MD Objective Remarks GENERAL: NAD SKIN: Warm and dry. HEAD: Normocephalic. EYES: No scleral icterus. No injection or drainage. NECK: Supple, trachea midline. No JVD or lymphadenopathy. CARDIOVASCULAR: Regular rate and rhythm without murmurs, gallops, or rubs. RESPIRATORY: Breath sounds decrease bilaterally. No accessory muscle use. GASTROINTESTINAL: Abdomen soft, non-tender, nondistended. MUSCULOSKELETAL: No cyanosis, or edema. BACK: Nontender without obvious deformity. No CVA tenderness. Procedures none A/P Problem List: (1) Sepsis ICD Code: A41.9 - Sepsis, unspecified organism Status: Resolved (2) Hypothermia ICD Code: T68.XXXA - Hypothermia, initial encounter Status: Resolved (3) Hypoglycemia ICD Code: E16.2 - Hypoglycemia, unspecified Status: Acute (4) IDDM (insulin dependent diabetes mellitus) ICD Code: E11.9 - Type 2 diabetes mellitus without complications; Z79.4 - assisted (current) use of insulin Status: Chronic (5) Acute on chronic diastolic heart failure ICD Code: I50.33 - Acute on chronic diastolic (congestive) heart failure Status: Resolved (6) Severe protein-calorie malnutrition ICD Code: E43 - Unspecified severe protein-calorie malnutrition Status: Chronic (7) Bilateral pleural effusion ICD Code: J90 - Pleural effusion, not elsewhere classified Status: Acute (8) BPPV (benign paroxysmal positional vertigo) ICD Code: H81.10 - Benign paroxysmal vertigo, unspecified ear (9) CAD (coronary artery disease) ICD Code: I25.10 - Atherosclerotic heart disease of [place] coronary artery without angina pectoris Status: Chronic (10) HTN (hypertension) ICD Code: I10 - Essential (primary) hypertension Status: Chronic (11) COPD (chronic obstructive pulmonary disease) ICD Code: J44.9 - Chronic obstructive pulmonary disease, unspecified (12) Marijuana abuse ICD Code: F12.10 - Cannabis abuse, uncomplicated (13) Clostridium difficile colitis ICD Code: A04.7 - Enterocolitis due to Clostridium difficile Status: Resolved (14) Anemia ICD Code: D64.9 - Anemia, unspecified Assessment and Plan 67-year-old female with sepsis-Resolved Bacteremia with gram-positive bacteria. Staph epi. Questionable etiology. s/p treatment with Daptomycin. Hypothermia-Resolved Elevated TSH on admission Cortisol level and is suspected range. The patient was placed on IV hydrocortisone. TSH elevation likely elevated due to stress and acute illness. Severe malnutrition. Encourage with Glucerna supplements. DM hypoglycemia on admission-Resolved Continue SSI and insulin Levemir 5units Q12H. Acute diastolic CHF exacerbation Continue IV diuretics 40mg Q8H,Aldactone, Imdur, Coreg Bilateral pleural effusions Cardiology cannot clear patient to hold Effient due to recent drug-eluting stent. Expect these are secondary to CHF. 01/08 sp US guided thoracentesis with drainage of 800 cc of pleural fluid which looks noninfectious. Plan for Right sided ultrasound guided thoracentesis today 01/12/18 [place] on CKD Continue Aldactone 8, metolazone, IV Lasix and albumin. Continue to avoid nephrotoxins, monitor I's and O's and monitor BMP. Appreciate input from pulmonary medicine CAD. Uncontrolled hypertension Continue Cardura 4mg daily and Coreg BID, Hydralazine 75mg Q8H. Benign paroxysmal postural vertigo Meclizine PRN Marijuana abuse. Cessation counseling provided. COPD. Currently on Solu Medrol 40mg Q8H, Ana Pedroza, Appreciate input from Pulmonary medicine C. difficile infection. Continue oral vancomycin for a total of 14 days. Anemia. Likely anemia of chronic disease. Patient with CKD stage IV. Hemoglobin stable. Transfused 2 units PRBC Continue oral iron. Right leg wound. Podiatry consulted. Recommended calcium alginate with silver dressing every 3 days. Elevate legs at all times. Recommend follow-up with Dr. Read at the wound center after discharge. Acute Hypoxemic respiratory failure. Improved Plan for Thoracentesis today D/c Solu Medrol and continue with Lasix IV Maintain oxygen saturation above 92% Problem Qualifiers (1) Hypothermia: Qualified Codes: T68.XXXD - Hypothermia, subsequent encounter (2) BPPV (benign paroxysmal positional vertigo): Qualified Codes: H81.10 - Benign paroxysmal vertigo, unspecified ear Je Morales MD Jan 12, 2018 12:39
[2018-01-12] MEDS ORDERED: LIDOCAINE HCL 1% 20 ML VIAL ONE (14:51)
--- NOTE | 2018-01-12 15:24 | RADRPT ---
EXAM DATE/TIME: 01/12/2018 14:35 [facility] COMPARISON: CHEST SINGLE AP, January 11, 2018, 9:24. CHEST EXPIRATION ONLY, January 07, 2018, 14:01. INDICATIONS : Status post right side thoracentesis. MEDICAL HISTORY : Chronic obstructive pulmonary disease. Congestive heart failure.Coronary artery disease. SURGICAL HISTORY : Appendectomy. Hysterectomy. Coronary artery stent. Tonsillectomy ENCOUNTER: Subsequent ACUITY: 1 day PAIN SCORE: 0/10 LOCATION: chest FINDINGS: A single frontal expiratory view of the chest was performed. Marked improvement in the previously see n right-sided pleural effusion which is almost completely resolved. No pneumothorax post thoracentesi s. Persistent left basilar consolidation/effusion. Heart size remains prominent. CONCLUSION: 1. Marked improvement in the previously noted right-sided pleural effusion post thoracentesis. No pne umothorax. 2. Persistent left basilar consolidation/effusion. Preet Chavez MD on January 12, 2018 at 15:21 Board Certified Radiologist. This report was verified electronically.
--- NOTE | 2018-01-12 16:29 | PD.CARD.PN ---
Subjective Subjective Remarks No CP, less SOB, had thoracentesis earlier Objective Medications Current Medications Medications (Trade) Dose Ordered Sig/Marie Route Start Time Stop Time Status Last Admin (NS Flush) 2 ml UNSCH PRN IV FLUSH 12/28/17 10:45 (NS Flush) 2 ml BID IV FLUSH 12/28/17 21:00 01/12/18 09:05 (Zofran Inj) 4 mg Q6H PRN IVP 12/28/17 10:45 01/01/18 08:20 (Narcan Inj) 0.4 mg UNSCH PRN IV PUSH 12/28/17 10:45 (Milk Of Magnesia Liq) 30 ml Q12H PRN PO 12/28/17 10:45 (Senokot) 17.2 mg Q12H PRN PO 12/28/17 10:45 (Dulcolax Supp) 10 mg DAILY PRN RECTAL 12/28/17 10:45 (Lactulose Liq) 30 ml DAILY PRN PO 12/28/17 10:45 (D50w (Vial) Inj) 50 ml UNSCH PRN IV PUSH 12/28/17 10:45 01/01/18 08:38 (Glucagon Inj) 1 mg STAT PRN IM 12/28/17 10:45 (Aspirin Chew) 81 mg DAILY CHEW 12/29/17 09:00 01/12/18 09:04 (Lipitor) 40 mg HS PO 12/28/17 21:00 Future Hold 01/01/18 21:14 (Effient) 10 mg DAILY PO 12/29/17 09:00 01/12/18 09:04 (Heparin Inj) 5,000 units Q12HR SQ 12/28/17 21:00 01/11/18 20:57 ([place] 5-325 Mg) 1 tab Q6H PRN PO 12/28/17 20:45 01/12/18 05:27 Miscellaneous Information Patient in critical care unit? Ass... Q361D .XX 12/28/17 23:30 12/28/17 23:30 (Imdur) 60 mg DAILY@07 PO 12/31/17 07:00 01/12/18 05:30 (Catapres) 0.1 mg Q6H PRN PO 12/30/17 18:30 01/04/18 12:46 (Atrovent Neb) 0.5 mg Q6HR NEB PRN NEB 12/31/17 18:30 01/09/18 05:21 (Apresoline) 75 mg Q8HR PO 12/31/17 22:00 01/12/18 13:44 (Pill Splitter) 1 ea UNSCH PRN OTHER 12/31/17 18:45 (Procardia Xl) 30 mg Q12HR PO 01/01/18 21:00 01/12/18 09:04 (Aldactone) 12.5 mg DAILY PO 01/02/18 10:00 01/12/18 09:04 (NovoLOG SUPPLEMENTAL SCALE) 1 ACHS SLIDING SCALE SQ 01/02/18 12:00 01/12/18 11:35 (Levemir Inj) 5 units Q12HR SQ 01/04/18 09:00 01/12/18 09:07 (Coreg) 6.25 mg Q12HR PO 01/04/18 21:00 01/12/18 09:04 (Cardura) 2 mg DAILY PO 01/05/18 09:00 01/09/18 08:40 (Cardura) 2 mg DAILY PO 01/05/18 09:00 01/12/18 09:04 (Vancomycin 25 Mg/ml Liq) 125 mg QID PO 01/07/18 14:46 01/12/18 13:44 (Tylenol) 650 mg Q4H PRN PO 01/08/18 10:30 (Benadryl) 25 mg Q4H PRN PO 01/08/18 10:30 (Ferrous Sulfate) 325 mg BID PO 01/10/18 21:00 01/12/18 09:04 (Antivert) 25 mg Q8H PRN PO 01/10/18 18:15 (Lasix Inj) 40 mg Q8H IV PUSH 01/11/18 17:00 01/12/18 09:05 Vital Signs / I&O Vital Signs Date Time Temp Pulse Resp B/P (MAP) Pulse Ox O2 Delivery O2 Flow Rate FiO2 01/12/18 15:05 77 18 145/72 (96) 98 01/12/18 14:50 97.7 78 18 144/72 (96) 98 01/12/18 14:11 96.7 79 20 152/69 (96) 95 01/12/18 12:09 97.7 83 18 151/70 (97) 94 01/12/18 08:27 97.9 73 18 150/67 (94) 94 01/12/18 07:53 74 01/12/18 04:00 98.3 75 16 163/73 (103) 95 01/12/18 04:00 71 01/12/18 00:00 98.0 73 16 156/67 (96) 96 01/12/18 00:00 72 01/11/18 20:00 71 01/11/18 20:00 Nasal Cannula 5.00 Humidified 01/11/18 20:00 97.8 79 16 162/74 (103) 93 I/O 01/11/18 01/11/18 01/11/18 01/12/18 01/12/18 01/12/18 07:00 15:00 23:00 07:00 15:00 23:00 Intake Total 120 ml 240 ml Output Total 1700 ml Balance 120 ml 240 ml -1700 ml Intake Oral 120 ml 240 ml Output Urine Total 1700 ml # Voids 13 3 # Bowel Movements 1 1 2 Physical Exam GENERAL: In NAD. SKIN: Warm and dry. HEAD: Normocephalic. EYES: No scleral icterus. No injection or drainage. NECK: Supple, trachea midline. No JVD or lymphadenopathy. CARDIOVASCULAR: Regular rate and rhythm without murmurs, gallops, or rubs. RESPIRATORY: Breath sounds equal bilaterally. No accessory muscle use. GASTROINTESTINAL: Abdomen soft, non-tender, nondistended. MUSCULOSKELETAL: No cyanosis, bilat LE edema Laboratory Laboratory Tests Test 01/12/18 09:40 Prothrombin Time 10.2 SEC Prothromb Time International Ratio 1.0 RATIO Imaging Last 24 hours Impressions Chest X-Ray 01/12/18 0000 Signed Impressions: Service Date/Time: Friday, January 12, 2018 14:35 - CONCLUSION: 1. Marked improvement in the previously noted right-sided pleural effusion post thoracentesis. No pneumothorax. 2. Persistent left basilar consolidation/effusion. Preet Chavez MD Assessment and Plan Problem List: (1) Bradycardia ICD Codes: R00.1 - Bradycardia, unspecified Status: Acute (2) Altered mental status ICD Codes: R41.82 - Altered mental status, unspecified Status: Acute (3) Hypoglycemia ICD Codes: E16.2 - Hypoglycemia, unspecified Status: Acute (4) CHF (congestive heart failure) ICD Codes: I50.9 - Heart failure, unspecified (5) Renal insufficiency ICD Codes: N28.9 - Disorder of kidney and ureter, unspecified (6) DM (diabetes mellitus) ICD Codes: E11.9 - Type 2 diabetes mellitus without complications Status: Chronic (7) CAD (coronary artery disease) ICD Codes: I25.10 - Atherosclerotic heart disease of [place] coronary artery without angina pectoris Status: Chronic (8) Chronic kidney disease, stage 4 (severe) ICD Codes: N18.4 - Chronic kidney disease, stage 4 (severe) Status: Chronic (9) Bacteremia ICD Codes: R78.81 - Bacteremia (10) Clostridium difficile colitis ICD Codes: A04.7 - Enterocolitis due to Clostridium difficile Status: Resolved Assessment and Plan Tolerated thoracentesis well. SOB improving, no edema. Continue current program including diuresis. She had drug eluting stent in Jun 2017; Effient and ASA cannot be stopped unless life threatening emergency occur for 1 year (high risk of stent thrombosis off meds). Nephrology eval. Increase activity. PT. early childhood services coordinator to see for placement once ready for discharge, doubt she can go back to her current home environment. Problem Qualifiers (1) Altered mental status: Qualified Codes: R40.0 - Somnolence (2) DM (diabetes mellitus): Qualified Codes: E11.628 - Type 2 diabetes mellitus with other skin complications; Z79.4 - senior care (current) use of insulin (3) CAD (coronary artery disease): Qualified Codes: I25.10 - Atherosclerotic heart disease of [place] coronary artery without angina pectoris Dunia Reddy MD Jan 12, 2018 16:29
--- NOTE | 2018-01-12 16:35 | RADRPT ---
EXAM DATE/TIME: 01/12/2018 11:53 [facility] COMPARISON: CHEST PA & LAT, November 02, 2017, 15:12. US GUIDED THORACENTESIS RIGHT, September 27, 2017, 10:21. INDICATIONS : Right pleural effusion. MEDICAL HISTORY : Hypercholesterolemia. Myocardial infarction. Congestive heart failure. Neuropathy. Coronary artery di sease. Anticoagulant therapy. Atrial fibrillation. COPD. Asthma. Dyspnea. Dentures. Hiatal hernia. Ar thritis. Diabetes. C-diff. MRSA. SURGICAL HISTORY : Tonsillectomy. Coronary artery stent. Appendectomy. Adenoidectomy. Hysterectomy. Back surgery. Gangli on cyst. ENCOUNTER: Subsequent ACUITY: 2 days PAIN SCORE: 0/10 LOCATION: Right chest FLUID: Total volume of 1,200 cc of clear, yellow fluid was removed. Fluid was discarded. Thoracentesis was therapeutic only. TECHNIQUE: 1. Ultrasound guidance for thoracentesis. 2. Thoracentesis. The risks, benefits, and alternatives to ultrasound guided thoracentesis were explained to the patien t in lay simple terms, including the risk of bleeding and infection. Written and verbal informed con sent was obtained. Appropriate area for thoracentesis was marked under ultrasound guidance with the patient in the uprig ht position. Overlying skin was prepped and draped in the usual sterile fashion and with local anest hetic, a dermatotomy was made with an 11 blade scalpel. A 6 [place] thoracentesis catheter was placed in the pleural space and fluid was removed. Catheter was then removed and a sterile dressing applie d. There were no immediate complications. The patient tolerated the procedure well and the left the ultrasound suite in stable condition. Chest radiograph is to be obtained. CONCLUSION: Uncomplicated ultrasound guided thoracentesis. Eric Pham MD on January 12, 2018 at 16:31 Board Certified Radiologist. This report was verified electronically.
--- NOTE | 2018-01-12 19:41 | HHI.PR ---
Subjective Remarks 67 YOWF with CAD, s/p stent, COPD,Pl eff US chest bilat pl eff, R.L On 3-4 LNC Had Rt TC 1200CC fluid removed Feels much better Objective Vital Signs Vital Signs Date Time Temp Pulse Resp B/P (MAP) Pulse Ox O2 Delivery O2 Flow Rate FiO2 01/12/18 16:09 97.4 77 18 146/67 (93) 91 01/12/18 15:05 77 18 145/72 (96) 98 01/12/18 14:50 97.7 78 18 144/72 (96) 98 01/12/18 14:11 96.7 79 20 152/69 (96) 95 01/12/18 12:09 97.7 83 18 151/70 (97) 94 01/12/18 08:27 97.9 73 18 150/67 (94) 94 01/12/18 07:53 74 01/12/18 04:00 98.3 75 16 163/73 (103) 95 01/12/18 04:00 71 01/12/18 00:00 98.0 73 16 156/67 (96) 96 01/12/18 00:00 72 01/11/18 20:00 71 01/11/18 20:00 Nasal Cannula 5.00 Humidified 01/11/18 20:00 97.8 79 16 162/74 (103) 93 I/O 01/11/18 01/11/18 01/11/18 01/12/18 01/12/18 01/12/18 07:00 15:00 23:00 07:00 15:00 23:00 Intake Total 120 ml 240 ml 840 ml Output Total 1700 ml Balance 120 ml 240 ml -1700 ml 840 ml Intake Oral 120 ml 240 ml 840 ml Output Urine Total 1700 ml # Voids 13 3 2 # Bowel Movements 1 1 2 1 Result Diagram: 01/11/1852101/11/18521 Objective Remarks GENERAL: MBMN WF,NAD SKIN: Warm and dry. HEAD: Normocephalic. EYES: No scleral icterus. No injection or drainage. NECK: Supple, trachea midline. No JVD or lymphadenopathy. CARDIOVASCULAR: Regular rate and rhythm without murmurs, gallops, or rubs. RESPIRATORY: Breath sounds equal bilaterally. No accessory muscle use. GASTROINTESTINAL: Abdomen soft, non-tender, nondistended. MUSCULOSKELETAL: No cyanosis, or edema. BACK: Nontender without obvious deformity. No CVA tenderness. A/P Assessment and Plan Pl eff, s/p TC CHF CAD, s/p stent COPD PLAN: Diurease Aerosol nebs Supplement 02 Cytology Negative DW pt Aaron Blankenship MD Jan 12, 2018 19:41
--- NOTE | 2018-01-12 21:16 | HHI.NPPN ---
Subjective History of Present Illness This is a 67-year-old female known to me from before, has been following with me in the office with past medical history of hypertension, ischemic heart disease, congestive heart failure, diabetes mellitus, chronic obstructive pulmonary disease, chronic anemia, hyperlipidemia, chronic kidney disease, came to the hospital with low blood sugar. I was called to see the patient because of elevated BUN and creatinine. The patient has known history of chronic kidney disease. Her baseline creatinine is around 1.6-1.8. She came in with creatinine of 1.6 and it has gone up to 2.0 and 2.1. The patient was hypotensive on admission and also she has bradycardia and she was hypothermic. She is much better now, her sugar has gone up after given the D50 and she is currently sitting in the chair with nasal cannula. She has mild shortness of breath. According to her the swelling in the leg has been improving but she still has a lot of edema in the legs. She denies any headache or dizziness at present. No chest pain. She has mild cough which is mainly dry. No history of dysuria, hematuria, difficulty passing urine. Additional Remarks Patient is alert and oriented,breathing is again better after the Thoracentesis. Review of Systems Respiratory Respiratory Remarks SOB improved Cardiovascular Cardiac Remarks Denies CP Gastrointestinal GI Remarks No abdominal pain Objective Data Data 01/12/18 01/13/18 19:00 07:00 Intake Total 840 ml Balance 840 ml Intake Oral 840 ml # Voids 2 # Bowel Movements 1 Vital Signs Date Time Temp Pulse Resp B/P (MAP) Pulse Ox O2 Delivery O2 Flow Rate FiO2 01/12/18 16:09 97.4 77 18 146/67 (93) 91 01/12/18 16:00 Nasal Cannula 5.00 01/12/18 15:49 77 01/12/18 15:05 77 18 145/72 (96) 98 01/12/18 14:50 97.7 78 18 144/72 (96) 98 01/12/18 14:11 96.7 79 20 152/69 (96) 95 01/12/18 12:09 97.7 83 18 151/70 (97) 94 01/12/18 12:00 Nasal Cannula 5.00 01/12/18 08:27 97.9 73 18 150/67 (94) 94 01/12/18 08:00 Nasal Cannula 5.00 01/12/18 07:53 74 01/12/18 04:00 98.3 75 16 163/73 (103) 95 01/12/18 04:00 71 01/12/18 00:00 98.0 73 16 156/67 (96) 96 01/12/18 00:00 72 -: 01/11/18 0522 01/11/18 0522 Physical Exam General Appearance: Well Nourished, No Acute Distress, Comfortable Eyes Eye Exam: Pupils Equal Pulmonary Resp Exam: Breath Sounds Equal, No Distress, Decreased Bases Cardiology CV Exam: Regular, Normal Sinus Rhythm Gastrointestinal/Abdomen GI Exam: Soft, Non-Tender, Bowel Sounds Present Genitourinary Exam: Flank Non-Tender Integumentary Skin Exam: Clear, Warm, Ulcer(s) Extremeties Extremities Exam: Pitting Edema Neurologic Neuro Exam: Alert, Awake Psychiatric Psych Exam: Appropriate Responses Assessment/Plan Discussed Condition With: Patient Assessment Summary: CKD Stage IV Problem List: (1) Renal insufficiency ICD Codes: N28.9 - Disorder of kidney and ureter, unspecified Plan: The patient has chronic kidney disease with proteinuria, most likely she has diabetic nephropathy BC growing Gram Positive, Staph. Coag. negative. On Vanco PO and Daptomycin Good UOP Weight is down. Renal US noted s/p thoracentesis with improvement in SOB Plan Continue to monitor I+O Continue Lasix 40 mg BID edema stable. Avoid nephrotoxins Once the kidney function is stabilized and she can be started on RUSS inhibitor, if her renal function stabilize. Lasix increased to Q8hr. Post Thoracentesis, 1200 cc removed from Rt. side. Creatinine is slightly better and K is 5.1. . (2) Leukocytosis ICD Codes: D72.829 - Elevated white blood cell count, unspecified Status: Acute (3) Hypertension ICD Codes: I10 - Essential (primary) hypertension Status: Chronic Plan: Blood pressure improving Continue the same (4) Sepsis ICD Codes: A41.9 - Sepsis, unspecified organism Status: Resolved (5) Anemia ICD Codes: D64.9 - Anemia, unspecified Status: Chronic (6) Stage 4 chronic kidney disease ICD Codes: N18.4 - Chronic kidney disease, stage 4 (severe) Problem Qualifiers (1) Hypertension: Qualified Codes: I10 - Essential (primary) hypertension Flavio Toro MD Jan 12, 2018 21:16
[2018-01-13] VITALS (9 sets, daily range): BP systolic 110–155; BP diastolic 55–69; PULSE 65–82; RESP 18–20; TEMP 97.5–98.6; O2SAT 93–100
[2018-01-13] MEDS: FUROSEMIDE 40 MG/4 ML VIAL IV PUSH SCH ×3 (01:28→21:12)
[2018-01-13] MEDS: hydrALAZINE HCL 50 MG TAB PO SCH ×3 (05:47→21:14)
[2018-01-13] MEDS: ISOSORBIDE MONONITRATE 60 MG CR TAB (IMDUR) PO SCH (05:47)
[2018-01-13] MEDS: PRASUGREL 10 MG TAB PO SCH (09:23)
[2018-01-13] MEDS: CARVEDILOL 6.25 MG TAB PO SCH ×2 (09:23→21:14)
[2018-01-13] MEDS: ASPIRIN 81 MG CHEW TAB CHEW SCH (09:23)
[2018-01-13] MEDS: SPIRONOLACTONE 25 MG TAB PO SCH (09:23)
[2018-01-13] MEDS: FERROUS SULFATE 325 MG (65 MG ELEMENTAL IRON) TAB PO SCH ×2 (09:23→21:14)
[2018-01-13] MEDS: NIFEdipine 30 MG SUSTAINED RELEASE TAB PO SCH ×2 (09:23→21:14)
[2018-01-13] MEDS: HEPARIN SODIUM - SQ 10,000 UNITS/ML VIAL SQ SCH ×2 (09:24→21:13)
[2018-01-13] MEDS: DOXAZOSIN MESYLATE 2 MG TAB PO SCH ×2 (09:28→09:31)
[2018-01-13] MEDS: VANCOMYCIN 25 MG/ML SUSP 100 ML BOTTLE PO SCH ×4 (09:34→21:13)
[2018-01-13] MEDS: INSULIN ASPART SUPPLEMENTAL SCALE SQ SCH ×4 (09:36→21:13)
[2018-01-13] MEDS: INSULIN DETEMIR 100 UNITS/ML VIAL SQ SCH ×2 (09:36→21:13)
[2018-01-13] MEDS: SODIUM CHLORIDE 0.9% FLUSH 10 ML FLUSH IV FLUSH SCH ×2 (09:45→21:17)
--- NOTE | 2018-01-13 10:54 | HHI.NPPN ---
Subjective History of Present Illness This is a 67-year-old female known to me from before, has been following with me in the office with past medical history of hypertension, ischemic heart disease, congestive heart failure, diabetes mellitus, chronic obstructive pulmonary disease, chronic anemia, hyperlipidemia, chronic kidney disease, came to the hospital with low blood sugar. I was called to see the patient because of elevated BUN and creatinine. The patient has known history of chronic kidney disease. Her baseline creatinine is around 1.6-1.8. She came in with creatinine of 1.6 and it has gone up to 2.0 and 2.1. The patient was hypotensive on admission and also she has bradycardia and she was hypothermic. She is much better now, her sugar has gone up after given the D50 and she is currently sitting in the chair with nasal cannula. She has mild shortness of breath. According to her the swelling in the leg has been improving but she still has a lot of edema in the legs. She denies any headache or dizziness at present. No chest pain. She has mild cough which is mainly dry. No history of dysuria, hematuria, difficulty passing urine. Additional Remarks Patient is alert and oriented, breathing is much better. OOB in chair (Jessica Clemons) Review of Systems Respiratory Respiratory Remarks SOB improved (Jessica Clemons) Cardiovascular Cardiac Remarks Denies CP (Jessica Clemons) Gastrointestinal GI Remarks No abdominal pain (Jessica Clemons) Objective Data Data Vital Signs Date Time Temp Pulse Resp B/P (MAP) Pulse Ox O2 Delivery O2 Flow Rate FiO2 01/13/18 08:09 98.5 82 18 151/55 (87) 93 01/13/18 04:00 72 01/13/18 04:00 98.6 70 20 153/67 (95) 95 01/13/18 04:00 Nasal Cannula 2.00 01/13/18 00:00 98.2 79 19 155/69 (97) 95 01/13/18 00:00 79 01/13/18 00:00 Nasal Cannula 2.00 01/12/18 20:30 97.3 77 14 151/71 (97) 93 01/12/18 20:00 Nasal Cannula 2.00 01/12/18 20:00 77 01/12/18 16:09 97.4 77 18 146/67 (93) 91 01/12/18 16:00 Nasal Cannula 5.00 01/12/18 15:49 77 01/12/18 15:05 77 18 145/72 (96) 98 01/12/18 14:50 97.7 78 18 144/72 (96) 98 01/12/18 14:11 96.7 79 20 152/69 (96) 95 01/12/18 12:09 97.7 83 18 151/70 (97) 94 01/12/18 12:00 Nasal Cannula 5.00 (Jessica Clemons) -: 01/11/18 0522 01/11/18 05 Physical Exam General Appearance: Well Nourished, No Acute Distress, Comfortable (Jessica Clemons) Eyes Eye Exam: Pupils Equal (Jessica Clemons) Pulmonary Resp Exam: Breath Sounds Equal, No Distress, Decreased Bases (Jessica Clemons) Cardiology CV Exam: Regular, Normal Sinus Rhythm (Jessica Clemons) Gastrointestinal/Abdomen GI Exam: Soft, Non-Tender, Bowel Sounds Present (Jessica Clemons) Genitourinary Exam: Flank Non-Tender (Jessica Clemons) Integumentary Skin Exam: Clear, Warm, Ulcer(s) (Jessica Clemons) Extremeties Extremities Exam: Pitting Edema (Jessica Clemons) Neurologic Neuro Exam: Alert, Awake (Jessica Clemons) Psychiatric Psych Exam: Appropriate Responses (Jessica Clemons) Assessment/Plan Discussed Condition With: Patient Assessment Summary: CKD Stage IV Problem List: (1) Renal insufficiency ICD Codes: N28.9 - Disorder of kidney and ureter, unspecified Plan: The patient has chronic kidney disease with proteinuria, most likely she has diabetic nephropathy On Vanco PO Good UOP Renal US noted s/p thoracentesis with improvement in SOB Plan Continue to monitor I+O Lasix increased to every 8 hours Avoid nephrotoxins Once the kidney function is stabilized and she can be started on RUSS inhibitor, if her renal function stabilize. Post Thoracentesis, 1200 cc removed from Rt. side. Labs in AM (2) Leukocytosis ICD Codes: D72.829 - Elevated white blood cell count, unspecified Status: Acute (3) Hypertension ICD Codes: I10 - Essential (primary) hypertension Status: Chronic Plan: Blood pressure improving Continue the same (4) Sepsis ICD Codes: A41.9 - Sepsis, unspecified organism Status: Resolved (5) Anemia ICD Codes: D64.9 - Anemia, unspecified Status: Chronic (6) Stage 4 chronic kidney disease ICD Codes: N18.4 - Chronic kidney disease, stage 4 (severe) (Jessica Clemons) Problem List: (1) Renal insufficiency ICD Codes: N28.9 - Disorder of kidney and ureter, unspecified Plan: The patient has chronic kidney disease with proteinuria, most likely she has diabetic nephropathy On Vanco PO Good UOP Renal US noted s/p thoracentesis with improvement in SOB Plan Continue to monitor I+O Lasix increased to every 8 hours Avoid nephrotoxins Once the kidney function is stabilized and she can be started on RUSS inhibitor, if her renal function stabilize. Post Thoracentesis, 1200 cc removed from Rt. side. Labs in AM Patient seen and examined, agree with above. Continue diuretics. (2) Leukocytosis ICD Codes: D72.829 - Elevated white blood cell count, unspecified Status: Acute (3) Hypertension ICD Codes: I10 - Essential (primary) hypertension Status: Chronic Plan: Blood pressure improving Continue the same (4) Sepsis ICD Codes: A41.9 - Sepsis, unspecified organism Status: Resolved (5) Anemia ICD Codes: D64.9 - Anemia, unspecified Status: Chronic (6) Stage 4 chronic kidney disease ICD Codes: N18.4 - Chronic kidney disease, stage 4 (severe) (Flavio Toro MD ) Problem Qualifiers (1) Hypertension: Qualified Codes: I10 - Essential (primary) hypertension Jessica Clemons Jan 13, 2018 10:54 Flavio Toro MD Jan 13, 2018 19:08
--- NOTE | 2018-01-13 11:06 | HHI.PR ---
Subjective Remarks Follow-up sepsis/bilateral pleural effusion 01/12/18-patient seen and examined, complains of shortness of breath and requires 5 L nasal cannula oxygen. Plan for right thoracentesis today 01/13/18-patient seen and examined, reports significant improvement of shortness of breath after 1.2 L removed from the right lung yesterday. Objective Vitals Vital Signs Date Time Temp Pulse Resp B/P (MAP) Pulse Ox O2 Delivery O2 Flow Rate FiO2 01/13/18 08:09 98.5 82 18 151/55 (87) 93 01/13/18 04:00 72 01/13/18 04:00 98.6 70 20 153/67 (95) 95 01/13/18 04:00 Nasal Cannula 2.00 01/13/18 00:00 98.2 79 19 155/69 (97) 95 01/13/18 00:00 79 01/13/18 00:00 Nasal Cannula 2.00 01/12/18 20:30 97.3 77 14 151/71 (97) 93 01/12/18 20:00 Nasal Cannula 2.00 01/12/18 20:00 77 01/12/18 16:09 97.4 77 18 146/67 (93) 91 01/12/18 16:00 Nasal Cannula 5.00 01/12/18 15:49 77 01/12/18 15:05 77 18 145/72 (96) 98 01/12/18 14:50 97.7 78 18 144/72 (96) 98 01/12/18 14:11 96.7 79 20 152/69 (96) 95 01/12/18 12:09 97.7 83 18 151/70 (97) 94 01/12/18 12:00 Nasal Cannula 5.00 I/O 01/12/18 01/12/18 01/12/18 01/13/18 01/13/18 01/13/18 07:00 15:00 23:00 07:00 15:00 23:00 Intake Total 840 ml Output Total 1700 ml Balance -1700 ml 840 ml Intake Oral 840 ml Output Urine Total 1700 ml # Voids 2 # Bowel Movements 2 1 Result Diagram: 01/11/1852101/11/18521 Imaging Last Impressions Thoracentesis Ultrasound 01/12/18 0600 Signed Impressions: Service Date/Time: Friday, January 12, 2018 11:53 - CONCLUSION: Uncomplicated ultrasound guided thoracentesis. Eric Pham MD Chest X-Ray 01/12/18 0000 Signed Impressions: Service Date/Time: Friday, January 12, 2018 14:35 - CONCLUSION: 1. Marked improvement in the previously noted right-sided pleural effusion post thoracentesis. No pneumothorax. 2. Persistent left basilar consolidation/effusion. Preet Chavez MD Chest Ultrasound 01/11/18 0000 Signed Impressions: Service Date/Time: Thursday, January 11, 2018 14:01 - CONCLUSION: Moderate size right pleural effusion. This is simple in appearance. Dewayne Donaldson Jr., MD Renal Ultrasound 01/02/18 0000 Signed Impressions: Service Date/Time: Tuesday, January 02, 2018 14:33 - CONCLUSION: Left pleural effusion with sinusitis and possible fatty liver. Ernestine King MD Head CT 12/28/17 0807 Signed Impressions: Service Date/Time: Thursday, December 28, 2017 09:04 - CONCLUSION: No acute disease. No significant change has occurred. Héctor Carmona MD Abdomen/Pelvis CT 12/28/17 0000 Signed Impressions: Service Date/Time: Thursday, December 28, 2017 09:07 - CONCLUSION: Stable abdomen. No evidence of free air and no evidence of obstruction. Large bilateral pleural effusions with ascites and anasarca. Diverticuli uncomplicated of the colon with diminished mural thickening of the colon suggesting improving colitis. Lim catheter in place in the urinary bladder. Héctor Carmona MD Objective Remarks GENERAL: NAD SKIN: Warm and dry. HEAD: Normocephalic. EYES: No scleral icterus. No injection or drainage. NECK: Supple, trachea midline. No JVD or lymphadenopathy. CARDIOVASCULAR: Regular rate and rhythm without murmurs, gallops, or rubs. RESPIRATORY: Breath sounds decrease bilaterally. No accessory muscle use. GASTROINTESTINAL: Abdomen soft, non-tender, nondistended. MUSCULOSKELETAL: No cyanosis, or edema. BACK: Nontender without obvious deformity. No CVA tenderness. Procedures none A/P Problem List: (1) Sepsis ICD Code: A41.9 - Sepsis, unspecified organism Status: Resolved (2) Hypothermia ICD Code: T68.XXXA - Hypothermia, initial encounter Status: Resolved (3) Hypoglycemia ICD Code: E16.2 - Hypoglycemia, unspecified Status: Acute (4) IDDM (insulin dependent diabetes mellitus) ICD Code: E11.9 - Type 2 diabetes mellitus without complications; Z79.4 - prison (current) use of insulin Status: Chronic (5) Acute on chronic diastolic heart failure ICD Code: I50.33 - Acute on chronic diastolic (congestive) heart failure Status: Resolved (6) Severe protein-calorie malnutrition ICD Code: E43 - Unspecified severe protein-calorie malnutrition Status: Chronic (7) Bilateral pleural effusion ICD Code: J90 - Pleural effusion, not elsewhere classified Status: Acute (8) BPPV (benign paroxysmal positional vertigo) ICD Code: H81.10 - Benign paroxysmal vertigo, unspecified ear (9) CAD (coronary artery disease) ICD Code: I25.10 - Atherosclerotic heart disease of [place] coronary artery without angina pectoris Status: Chronic (10) HTN (hypertension) ICD Code: I10 - Essential (primary) hypertension Status: Chronic (11) COPD (chronic obstructive pulmonary disease) ICD Code: J44.9 - Chronic obstructive pulmonary disease, unspecified (12) Marijuana abuse ICD Code: F12.10 - Cannabis abuse, uncomplicated (13) Clostridium difficile colitis ICD Code: A04.7 - Enterocolitis due to Clostridium difficile Status: Resolved (14) Anemia ICD Code: D64.9 - Anemia, unspecified Assessment and Plan 67-year-old female with sepsis-Resolved Bacteremia with gram-positive bacteria. Staph epi. Questionable etiology. s/p treatment with Daptomycin. Hypothermia-Resolved Elevated TSH on admission Cortisol level and is suspected range. The patient was placed on IV hydrocortisone. TSH elevation likely elevated due to stress and acute illness. Severe malnutrition. Encourage with Glucerna supplements. DM hypoglycemia on admission-Resolved Continue SSI and insulin Levemir 5units Q12H. Acute diastolic CHF exacerbation Decrease IV diuretics 40mg to Q12H, continue Aldactone, Imdur, Coreg Bilateral pleural effusions Cardiology cannot clear patient to hold Effient due to recent drug-eluting stent. Expect these are secondary to CHF. 01/08 sp US guided thoracentesis with drainage of 800 cc of pleural fluid which looks noninfectious. s/p Right sided ultrasound guided thoracentesis 01/12/18 Plan for US guided thoracentesis of Left Lung today 01/13/18 [place] on CKD Continue Aldactone 8, metolazone, IV Lasix and albumin. Continue to avoid nephrotoxins, monitor I's and O's and monitor BMP. Appreciate input from Nephrology CAD. Uncontrolled hypertension Continue Cardura 4mg daily and Coreg BID, Hydralazine 75mg Q8H. Benign paroxysmal postural vertigo Meclizine PRN Marijuana abuse. Cessation counseling provided. COPD. Continue Duo Nebs, Appreciate input from Pulmonary medicine C. difficile infection. Continue oral vancomycin for a total of 14 days. Anemia. Likely anemia of chronic disease. Patient with CKD stage IV. Hemoglobin stable. Transfused 2 units PRBC Continue oral iron. Right leg wound. Podiatry consulted. Recommended calcium alginate with silver dressing every 3 days. Elevate legs at all times. Recommend follow-up with Dr. Read at the wound center after discharge. Acute Hypoxemic respiratory failure-Improving Improved s/p Thoracentesis D/c Solu Medrol and continue with Lasix IV Maintain oxygen saturation above 92% Problem Qualifiers (1) Hypothermia: Qualified Codes: T68.XXXD - Hypothermia, subsequent encounter (2) BPPV (benign paroxysmal positional vertigo): Qualified Codes: H81.10 - Benign paroxysmal vertigo, unspecified ear Je Morales MD Jan 13, 2018 11:06
--- NOTE | 2018-01-13 16:28 | RADRPT ---
EXAM DATE/TIME: 01/13/2018 15:41 [facility] COMPARISON: CHEST EXPIRATION ONLY, January 12, 2018, 14:35. INDICATIONS : Post thoracentesis. MEDICAL HISTORY : None. SURGICAL HISTORY : None. ENCOUNTER: Subsequent ACUITY: 1 day PAIN SCORE: 0/10 LOCATION: Left chest. FINDINGS: A single frontal expiratory view of the chest was performed. Small likely subpulmonic pneumothorax fo llowing thoracentesis with interval resolution of moderate size left-sided effusion. Redemonstration of patchy airspace disease in the right lower lobe with likely trace right pleural effusion. Remainde r the exam is unchanged. CONCLUSION: 1. Very small subpulmonic pneumothorax following thoracentesis with interval resolution of left-sided pleural effusion. Eric Phma MD on January 13, 2018 at 16:25 Board Certified Radiologist. This report was verified electronically.
--- NOTE | 2018-01-13 16:45 | RADRPT ---
EXAM DATE/TIME: 01/13/2018 15:02 [facility] COMPARISON: US GUIDED THORACENTESIS LEFT, January 07, 2018, 13:11. INDICATIONS : Left pleural effusion. MEDICAL HISTORY : Myocardial infarction. Congestive heart failure. Hypercholesterolemia. Dentures. Neuropathy. Coronary artery disease. Anticoagulant therapy. Atrial fibrillation.COPD. Asthma. Dyspnea. Hiatal hernia. Art hritis. Pleural effusion. Diabetes. C-diff. MRSA. SURGICAL HISTORY : Tonsillectomy. Coronary artery stent. Appendectomy. Adenoidectomy. Hysterectomy. Back surgery. Gangli on cyst. Thoracentesis. ENCOUNTER: Subsequent ACUITY: 1 week PAIN SCORE: 0/10 LOCATION: Left chest FLUID: Total volume of 1,250 cc of clear, yellow fluid was removed. Fluid was discarded. Thoracentesis was therapeutic only. TECHNIQUE: 1. Ultrasound guidance for thoracentesis. 2. Thoracentesis. The risks, benefits, and alternatives to ultrasound guided thoracentesis were explained to the patien t in lay simple terms, including the risk of bleeding and infection. Written and verbal informed con sent was obtained. Appropriate area for thoracentesis was marked under ultrasound guidance with the patient in the uprig ht position. Overlying skin was prepped and draped in the usual sterile fashion and with local anest hetic, a dermatotomy was made with an 11 blade scalpel. A 6 Bulgarian thoracentesis catheter was placed in the pleural space and fluid was removed. Catheter was then removed and a sterile dressing applie d. There were no immediate complications. The patient tolerated the procedure well and the left the ultrasound suite in stable condition. Chest radiograph is to be obtained. CONCLUSION: Uncomplicated ultrasound guided thoracentesis. Preet Chavez MD on January 13, 2018 at 16:44 Board Certified Radiologist. This report was verified electronically.
--- NOTE | 2018-01-13 19:27 | PD.CARD.PN ---
Subjective Subjective Remarks No CP or SOB, feels better, sitting in the chair Objective Medications Current Medications Medications (Trade) Dose Ordered Sig/Marie Route Start Time Stop Time Status Last Admin (NS Flush) 2 ml UNSCH PRN IV FLUSH 12/28/17 10:45 (NS Flush) 2 ml BID IV FLUSH 12/28/17 21:00 01/13/18 09:45 (Zofran Inj) 4 mg Q6H PRN IVP 12/28/17 10:45 01/01/18 08:20 (Narcan Inj) 0.4 mg UNSCH PRN IV PUSH 12/28/17 10:45 (Milk Of Magnesia Liq) 30 ml Q12H PRN PO 12/28/17 10:45 (Senokot) 17.2 mg Q12H PRN PO 12/28/17 10:45 (Dulcolax Supp) 10 mg DAILY PRN RECTAL 12/28/17 10:45 (Lactulose Liq) 30 ml DAILY PRN PO 12/28/17 10:45 (D50w (Vial) Inj) 50 ml UNSCH PRN IV PUSH 12/28/17 10:45 01/01/18 08:38 (Glucagon Inj) 1 mg STAT PRN IM 12/28/17 10:45 (Aspirin Chew) 81 mg DAILY CHEW 12/29/17 09:00 01/13/18 09:23 (Lipitor) 40 mg HS PO 12/28/17 21:00 Future Hold 01/01/18 21:14 (Effient) 10 mg DAILY PO 12/29/17 09:00 01/13/18 09:23 (Heparin Inj) 5,000 units Q12HR SQ 12/28/17 21:00 01/13/18 09:24 ([place] 5-325 Mg) 1 tab Q6H PRN PO 12/28/17 20:45 01/12/18 23:58 Miscellaneous Information Patient in critical care unit? Ass... Q361D .XX 12/28/17 23:30 12/28/17 23:30 (Imdur) 60 mg DAILY@07 PO 12/31/17 07:00 01/13/18 05:47 (Catapres) 0.1 mg Q6H PRN PO 12/30/17 18:30 01/04/18 12:46 (Atrovent Neb) 0.5 mg Q6HR NEB PRN NEB 12/31/17 18:30 01/09/18 05:21 (Apresoline) 75 mg Q8HR PO 12/31/17 22:00 01/13/18 12:46 (Pill Splitter) 1 ea UNSCH PRN OTHER 12/31/17 18:45 (Procardia Xl) 30 mg Q12HR PO 01/01/18 21:00 01/13/18 09:23 (Aldactone) 12.5 mg DAILY PO 01/02/18 10:00 01/13/18 09:23 (NovoLOG SUPPLEMENTAL SCALE) 1 ACHS SLIDING SCALE SQ 01/02/18 12:00 01/13/18 18:03 (Levemir Inj) 5 units Q12HR SQ 01/04/18 09:00 01/13/18 09:36 (Coreg) 6.25 mg Q12HR PO 01/04/18 21:00 01/13/18 09:23 (Cardura) 2 mg DAILY PO 01/05/18 09:00 01/13/18 09:28 (Cardura) 2 mg DAILY PO 01/05/18 09:00 01/13/18 09:31 (Vancomycin 25 Mg/ml Liq) 125 mg QID PO 01/07/18 14:46 01/13/18 18:03 (Tylenol) 650 mg Q4H PRN PO 01/08/18 10:30 (Benadryl) 25 mg Q4H PRN PO 01/08/18 10:30 (Ferrous Sulfate) 325 mg BID PO 01/10/18 21:00 01/13/18 09:23 (Antivert) 25 mg Q8H PRN PO 01/10/18 18:15 (Lasix Inj) 40 mg Q12H IV PUSH 01/13/18 21:00 Vital Signs / I&O Vital Signs Date Time Temp Pulse Resp B/P (MAP) Pulse Ox O2 Delivery O2 Flow Rate FiO2 01/13/18 16:05 72 18 123/67 (85) 100 01/13/18 15:50 97.6 73 18 110/60 (77) 100 01/13/18 12:09 97.5 75 18 133/62 (85) 95 01/13/18 12:00 76 01/13/18 08:09 98.5 82 18 151/55 (87) 93 01/13/18 04:00 72 01/13/18 04:00 98.6 70 20 153/67 (95) 95 01/13/18 04:00 Nasal Cannula 2.00 01/13/18 00:00 98.2 79 19 155/69 (97) 95 01/13/18 00:00 79 01/13/18 00:00 Nasal Cannula 2.00 01/12/18 20:30 97.3 77 14 151/71 (97) 93 01/12/18 20:00 Nasal Cannula 2.00 01/12/18 20:00 77 I/O 01/12/18 01/12/18 01/12/18 01/13/18 01/13/18 01/13/18 07:00 15:00 23:00 07:00 15:00 23:00 Intake Total 840 ml 720 ml Output Total 1700 ml Balance -1700 ml 840 ml 720 ml Intake Oral 840 ml 720 ml Output Urine Total 1700 ml # Voids 2 3 # Bowel Movements 2 1 0 Physical Exam GENERAL: In NAD. SKIN: Warm and dry. HEAD: Normocephalic. EYES: No scleral icterus. No injection or drainage. NECK: Supple, trachea midline. No JVD or lymphadenopathy. CARDIOVASCULAR: Regular rate and rhythm without murmurs, gallops, or rubs. RESPIRATORY: Breath sounds equal bilaterally. No accessory muscle use. GASTROINTESTINAL: Abdomen soft, non-tender, nondistended. MUSCULOSKELETAL: No cyanosis, bilat LE edema Imaging Last 24 hours Impressions Thoracentesis Ultrasound 01/13/18 0000 Signed Impressions: Service Date/Time: December 15:02 - CONCLUSION: Uncomplicated ultrasound guided thoracentesis. Preet Chavez MD Chest X-Ray 01/13/18 0000 Signed Impressions: Service Date/Time: December 15:41 - CONCLUSION: 1. Very small subpulmonic pneumothorax following thoracentesis with interval resolution of left-sided pleural effusion. Eric Pham MD Assessment and Plan Problem List: (1) Bradycardia ICD Codes: R00.1 - Bradycardia, unspecified Status: Acute (2) Altered mental status ICD Codes: R41.82 - Altered mental status, unspecified Status: Acute (3) Hypoglycemia ICD Codes: E16.2 - Hypoglycemia, unspecified Status: Acute (4) CHF (congestive heart failure) ICD Codes: I50.9 - Heart failure, unspecified (5) Renal insufficiency ICD Codes: N28.9 - Disorder of kidney and ureter, unspecified (6) DM (diabetes mellitus) ICD Codes: E11.9 - Type 2 diabetes mellitus without complications Status: Chronic (7) CAD (coronary artery disease) ICD Codes: I25.10 - Atherosclerotic heart disease of [place] coronary artery without angina pectoris Status: Chronic (8) Chronic kidney disease, stage 4 (severe) ICD Codes: N18.4 - Chronic kidney disease, stage 4 (severe) Status: Chronic (9) Bacteremia ICD Codes: R78.81 - Bacteremia (10) Clostridium difficile colitis ICD Codes: A04.7 - Enterocolitis due to Clostridium difficile Status: Resolved Assessment and Plan Overall improvement. Continue current program including diuresis. LE edema markedly improved. She had drug eluting stent in Jun 2017; Effient and ASA cannot be stopped unless life threatening emergency occur for 1 year (high risk of stent thrombosis off meds). Nephrology eval and mgmt. Increase activity. PT. dining services manager to see for placement once ready for discharge, doubt she can go back to her current home environment. Will schedule outpt f/u. Problem Qualifiers (1) Altered mental status: Qualified Codes: R40.0 - Somnolence (2) DM (diabetes mellitus): Qualified Codes: E11.628 - Type 2 diabetes mellitus with other skin complications; Z79.4 - intermission coordinator (current) use of insulin (3) CAD (coronary artery disease): Qualified Codes: I25.10 - Atherosclerotic heart disease of [place] coronary artery without angina pectoris Dunia Reddy MD Jan 13, 2018 19:27
--- NOTE | 2018-01-13 20:05 | HHI.PR ---
Subjective Remarks 67 YOWF with CAD, s/p stent, COPD,Pl eff US chest bilat pl eff, R.L On 3-4 LNC Had Rt TC 1200CC fluid removed Feels much better SOB improved Objective Vital Signs Vital Signs Date Time Temp Pulse Resp B/P (MAP) Pulse Ox O2 Delivery O2 Flow Rate FiO2 01/13/18 17:00 73 01/13/18 16:05 72 18 123/67 (85) 100 01/13/18 15:50 97.6 73 18 110/60 (77) 100 01/13/18 12:09 97.5 75 18 133/62 (85) 95 01/13/18 12:00 76 01/13/18 08:09 98.5 82 18 151/55 (87) 93 01/13/18 04:00 72 01/13/18 04:00 98.6 70 20 153/67 (95) 95 01/13/18 04:00 Nasal Cannula 2.00 01/13/18 00:00 98.2 79 19 155/69 (97) 95 01/13/18 00:00 79 01/13/18 00:00 Nasal Cannula 2.00 01/12/18 20:30 97.3 77 14 151/71 (97) 93 I/O 01/12/18 01/12/18 01/12/18 01/13/18 01/13/18 01/13/18 07:00 15:00 23:00 07:00 15:00 23:00 Intake Total 840 ml 720 ml Output Total 1700 ml Balance -1700 ml 840 ml 720 ml Intake Oral 840 ml 720 ml Output Urine Total 1700 ml # Voids 2 3 # Bowel Movements 2 1 0 Result Diagram: 01/11/1852101/11/18521 Objective Remarks GENERAL: MBMN WF,NAD SKIN: Warm and dry. HEAD: Normocephalic. EYES: No scleral icterus. No injection or drainage. NECK: Supple, trachea midline. No JVD or lymphadenopathy. CARDIOVASCULAR: Regular rate and rhythm without murmurs, gallops, or rubs. RESPIRATORY: Breath sounds equal bilaterally. No accessory muscle use. GASTROINTESTINAL: Abdomen soft, non-tender, nondistended. MUSCULOSKELETAL: No cyanosis, or edema. BACK: Nontender without obvious deformity. No CVA tenderness. A/P Assessment and Plan Pl eff, s/p TC CHF CAD, s/p stent COPD PLAN: Diurease Aerosol nebs Supplement 02 Cytology Negative DW pt Aaron Blankenship MD Jan 13, 2018 20:05
[2018-01-13] MEDS: ACETAMINOPHEN/HYDROcodone 325 MG/5 MG TAB PO PRN (21:14)
[2018-01-14] VITALS: BP 156/69; PULSE 65; PULSE 68; RESP 18; TEMP 97.8; O2SAT 97
[2018-01-14 04:00] VITALS: BP 149/69; PULSE 70; PULSE 74; RESP 12; TEMP 98.4; O2SAT 92
[2018-01-14] MEDS: hydrALAZINE HCL 50 MG TAB PO SCH ×3 (06:02→22:00)
[2018-01-14] MEDS: ISOSORBIDE MONONITRATE 60 MG CR TAB (IMDUR) PO SCH (06:02)
[2018-01-14] MEDS: ACETAMINOPHEN/HYDROcodone 325 MG/5 MG TAB PO PRN ×2 (06:03→21:26)
[2018-01-14 08:00] VITALS: BP 129/63; PULSE 72; PULSE 73; RESP 18; TEMP 98.1; O2SAT 93
[2018-01-14] MEDS: DOXAZOSIN MESYLATE 2 MG TAB PO SCH ×2 (08:49)
[2018-01-14] MEDS: ASPIRIN 81 MG CHEW TAB CHEW SCH (08:50)
[2018-01-14] MEDS: PRASUGREL 10 MG TAB PO SCH (08:50)
[2018-01-14] MEDS: SPIRONOLACTONE 25 MG TAB PO SCH (08:50)
[2018-01-14] MEDS: NIFEdipine 30 MG SUSTAINED RELEASE TAB PO SCH ×2 (08:50→21:26)
[2018-01-14] MEDS: CARVEDILOL 6.25 MG TAB PO SCH ×2 (08:50→21:26)
[2018-01-14] MEDS: HEPARIN SODIUM - SQ 10,000 UNITS/ML VIAL SQ SCH ×2 (08:51→21:27)
[2018-01-14] MEDS: FUROSEMIDE 40 MG/4 ML VIAL IV PUSH SCH ×2 (08:52→21:27)
[2018-01-14] MEDS: SODIUM CHLORIDE 0.9% FLUSH 10 ML FLUSH IV FLUSH SCH ×2 (08:52→21:28)
[2018-01-14] MEDS: INSULIN DETEMIR 100 UNITS/ML VIAL SQ SCH ×2 (08:53→21:00)
[2018-01-14] MEDS: INSULIN ASPART SUPPLEMENTAL SCALE SQ SCH ×4 (08:53→21:00)
[2018-01-14] MEDS: VANCOMYCIN 25 MG/ML SUSP 100 ML BOTTLE PO SCH ×4 (08:54→21:27)
[2018-01-14] MEDS: FERROUS SULFATE 325 MG (65 MG ELEMENTAL IRON) TAB PO SCH ×2 (09:02→21:00)
[2018-01-14] MEDS ORDERED: LIDOCAINE HCL 1% 20 ML VIAL ONE (09:23)
[2018-01-14 11:59] LABS: BICARBONATE 28.4 MEQ/L (21.0-32.0); CALCIUM 8.1 MG/DL (8.5-10.1); CREATININE 3.24 MG/DL (0.50-1.00)
[2018-01-14 12:00] VITALS: BP 136/62; PULSE 73; PULSE 75; RESP 18; TEMP 98.5; O2SAT 95
--- NOTE | 2018-01-14 12:26 | HHI.NPPN ---
Subjective History of Present Illness This is a 67-year-old female known to me from before, has been following with me in the office with past medical history of hypertension, ischemic heart disease, congestive heart failure, diabetes mellitus, chronic obstructive pulmonary disease, chronic anemia, hyperlipidemia, chronic kidney disease, came to the hospital with low blood sugar. I was called to see the patient because of elevated BUN and creatinine. The patient has known history of chronic kidney disease. Her baseline creatinine is around 1.6-1.8. She came in with creatinine of 1.6 and it has gone up to 2.0 and 2.1. The patient was hypotensive on admission and also she has bradycardia and she was hypothermic. She is much better now, her sugar has gone up after given the D50 and she is currently sitting in the chair with nasal cannula. She has mild shortness of breath. According to her the swelling in the leg has been improving but she still has a lot of edema in the legs. She denies any headache or dizziness at present. No chest pain. She has mild cough which is mainly dry. No history of dysuria, hematuria, difficulty passing urine. Additional Remarks Mild SOB and chest discomfort very small subpulmonic pneumothorax following thoracentesis noted. (Jessica Clemons) Review of Systems Respiratory Lungs: SOB (Jessica Clemons) Cardiovascular Cardiac: Chest Pain (Jessica Clemons) Gastrointestinal GI Remarks No abdominal pain (Jessica Clemons) Objective Data Data Vital Signs Date Time Temp Pulse Resp B/P (MAP) Pulse Ox O2 Delivery O2 Flow Rate FiO2 01/14/18 08:00 72 01/14/18 08:00 98.1 73 18 129/63 (85) 93 01/14/18 07:59 Nasal Cannula 2.00 01/14/18 04:00 Nasal Cannula 2.00 01/14/18 04:00 98.4 74 12 149/69 (95) 92 01/14/18 04:00 70 01/14/18 00:00 65 01/14/18 00:00 97.8 68 18 156/69 (98) 97 01/14/18 00:00 Nasal Cannula 2.00 01/13/18 20:00 98.2 75 18 141/63 (89) 98 01/13/18 20:00 65 2/15/18 20:00 Nasal Cannula 2.00 01/13/18 17:00 Nasal Cannula 2.00 01/13/18 17:00 73 01/13/18 16:05 72 18 123/67 (85) 100 01/13/18 15:50 97.6 73 18 110/60 (77) 100 (Jessica Clemons) -: 01/11/18 0522 01/14/18 1102 Physical Exam General Appearance: Well Nourished, No Acute Distress, Comfortable (Jessica Clemons NEEDLE FELT MAKING MACHINE OPERATOR) Eyes Eye Exam: Pupils Equal (Jessica ClemonsP) Pulmonary Resp Exam: Breath Sounds Equal, No Distress, Decreased Bases (Jessica Clemons NEEDLE FELT MAKING MACHINE OPERATOR) Cardiology CV Exam: Regular, Normal Sinus Rhythm (Jessica ClemonsP) Gastrointestinal/Abdomen GI Exam: Soft, Non-Tender, Bowel Sounds Present (Jessica ClemonsP) Genitourinary Exam: Flank Non-Tender (Jessica Clemons NEEDLE FELT MAKING MACHINE OPERATOR) Integumentary Skin Exam: Clear, Warm, Ulcer(s) (Jessica ClemonsP) Extremeties Extremities Exam: Pitting Edema (Jessica ClemonsP) Neurologic Neuro Exam: Alert, Awake (Jessica ClemonsP) Psychiatric Psych Exam: Appropriate Responses (Jessica ClemonsP) Assessment/Plan Discussed Condition With: Patient Assessment Summary: CKD Stage IV Problem List: (1) Renal insufficiency ICD Codes: N28.9 - Disorder of kidney and ureter, unspecified Plan: The patient has chronic kidney disease with proteinuria, most likely she has diabetic nephropathy On Vanco PO Good UOP Renal US noted Plan Continue to monitor I+O continue Lasix every 12 hours Avoid nephrotoxins Once the kidney function is stabilized and she can be started on RUSS inhibitor, if her renal function stabilize. Post Thoracentesis, 1200 cc removed from Rt. side very small subpulmonic pneumothorax following thoracentesis Slight increase in creatinine at 3.24 lasix has been decreased (2) Leukocytosis ICD Codes: D72.829 - Elevated white blood cell count, unspecified Status: Acute (3) Hypertension ICD Codes: I10 - Essential (primary) hypertension Status: Chronic Plan: Blood pressure improving Continue the same (4) Sepsis ICD Codes: A41.9 - Sepsis, unspecified organism Status: Resolved (5) Anemia ICD Codes: D64.9 - Anemia, unspecified Status: Chronic (6) Stage 4 chronic kidney disease ICD Codes: N18.4 - Chronic kidney disease, stage 4 (severe) (Jessica Clemons) Problem List: (1) Renal insufficiency ICD Codes: N28.9 - Disorder of kidney and ureter, unspecified Plan: The patient has chronic kidney disease with proteinuria, most likely she has diabetic nephropathy On Vanco PO Good UOP Renal US noted Plan Continue to monitor I+O continue Lasix every 12 hours Avoid nephrotoxins Once the kidney function is stabilized and she can be started on RUSS inhibitor, if her renal function stabilize. Post Thoracentesis, 1200 cc removed from Rt. side very small subpulmonic pneumothorax following thoracentesis Slight increase in creatinine at 3.24 Lasix has been decreased. Patient seen and examined, agree with above. Patient need to be compliant with fluid intake. If not better by Wednesday, will consider ultrafiltration by Dialysis. (2) Leukocytosis ICD Codes: D72.829 - Elevated white blood cell count, unspecified Status: Acute (3) Hypertension ICD Codes: I10 - Essential (primary) hypertension Status: Chronic Plan: Blood pressure improving Continue the same (4) Sepsis ICD Codes: A41.9 - Sepsis, unspecified organism Status: Resolved (5) Anemia ICD Codes: D64.9 - Anemia, unspecified Status: Chronic (6) Stage 4 chronic kidney disease ICD Codes: N18.4 - Chronic kidney disease, stage 4 (severe) (Flavio Toro MD ) Problem Qualifiers (1) Hypertension: Qualified Codes: I10 - Essential (primary) hypertension Jessica Clemons Jan 14, 2018 12:26 Flavio Toro MD Jan 14, 2018 21:05
--- NOTE | 2018-01-14 12:36 | HHI.IDPN ---
Note Infectious Disease Note Patient notes chest pain and SOB. Had thoracentesis yesterday. No other complaints. Awake and alert. Stools are formed. 1 - 2 BM a day. Patient was admitted to the hospital with altered mental status on December 28, 2017. Blood culture taken on 12/28 has gram-positive cocci in all four bottles. The patient has a nonhealing wound of the right tibia. PAST MEDICAL HISTORY 1. COPD. 2. Hypertension. 3. Hyperlipidemia. 4. Diabetes mellitus. 5. Coronary artery disease. 6. Colitis. 7. Coronary stenting x3. 8. Hysterectomy. 9. Appendectomy. 10. Tonsillectomy. ALLERGIES PROPOXYPHENE. MEDICATIONS Vancomycin p.o. OBJECTIVE: Vital Signs Date Time Temp Pulse Resp B/P (MAP) Pulse Ox O2 Delivery O2 Flow Rate FiO2 01/14/18 08:00 72 01/14/18 08:00 98.1 73 18 129/63 (85) 93 01/14/18 07:59 Nasal Cannula 2.00 01/14/18 04:00 Nasal Cannula 2.00 01/14/18 04:00 98.4 74 12 149/69 (95) 92 01/14/18 04:00 70 01/14/18 00:00 65 01/14/18 00:00 97.8 68 18 156/69 (98) 97 01/14/18 00:00 Nasal Cannula 2.00 01/13/18 20:00 98.2 75 18 141/63 (89) 98 01/13/18 20:00 65 01/13/18 20:00 Nasal Cannula 2.00 01/13/18 17:00 Nasal Cannula 2.00 01/13/18 17:00 73 01/13/18 16:05 72 18 123/67 (85) 100 01/13/18 15:50 97.6 73 18 110/60 (77) 100 Laboratory Tests Test 01/14/18 11:02 Blood Urea Nitrogen 66 MG/DL Creatinine 3.24 MG/DL Random Glucose 238 MG/DL Calcium Level 8.1 MG/DL Sodium Level 140 MEQ/L Potassium Level 4.2 MEQ/L Chloride Level 105 MEQ/L Carbon Dioxide Level 28.4 MEQ/L Anion Gap 7 MEQ/L Estimat Glomerular Filtration Rate 14 ML/MIN PHYSICAL EXAMINATION GENERAL: No acute distress. Awake and alert and oriented. HEENT: Head is atraumatic. Extraocular movements grossly intact, pupils reactive to light. No icterus. OROPHARYNX: Mucosa is moist. NECK: Supple without adenopathy. LUNGS: Clear breath sounds. HEART: Regular rate and rhythm. No murmurs, rubs or gallops. ABDOMEN: Bowel sounds present, soft, no tenderness. EXTREMITIES: The right tibia has ulceration at the inner aspect distally approximately 6 cm long and approximately 3 cm wide. SKIN: No diffuse rash. NEUROLOGIC: No gross focal findings. PSYCHIATRIC: Pleasant, calm and cooperative. IMPRESSION 1. Bacteremia with gram-positive bacteria. Staph epi, Questionable etiology. Repeat culture negative. Stable Completed antibiotics. 2. C-difficile colitis. Treated and improved the PO vancomycin can be stopped. 3. Chronic Nonhealing right tibial wound. Culture has no growth. RECOMMENDATIONS Stop vancomycin oral. Please call if further input is needed. I will sign off now. Asa Hooks MD Jan 14, 2018 12:36
--- NOTE | 2018-01-14 13:01 | HHI.PR ---
Subjective Remarks Follow-up sepsis/bilateral pleural effusion 01/12/18-patient seen and examined, complains of shortness of breath and requires 5 L nasal cannula oxygen. Plan for right thoracentesis today 01/13/18-patient seen and examined, reports significant improvement of shortness of breath after 1.2 L removed from the right lung yesterday. 01/14/18-patient seen and examined, states she had a rough night sleeping. Patient had 1.25L out removed from left lung yesterday complicated by very small subpulmonic pneumothorax. Discussed today with pulmonary medicine.. Objective Vitals Vital Signs Date Time Temp Pulse Resp B/P (MAP) Pulse Ox O2 Delivery O2 Flow Rate FiO2 01/14/18 12:00 98.5 75 18 136/62 (86) 95 01/14/18 08:00 72 01/14/18 08:00 98.1 73 18 129/63 (85) 93 01/14/18 07:59 Nasal Cannula 2.00 01/14/18 04:00 Nasal Cannula 2.00 01/14/18 04:00 98.4 74 12 149/69 (95) 92 01/14/18 04:00 70 01/14/18 00:00 65 01/14/18 00:00 97.8 68 18 156/69 (98) 97 01/14/18 00:00 Nasal Cannula 2.00 01/13/18 20:00 98.2 75 18 141/63 (89) 98 01/13/18 20:00 65 01/13/18 20:00 Nasal Cannula 2.00 01/13/18 17:00 Nasal Cannula 2.00 01/13/18 17:00 73 01/13/18 16:05 72 18 123/67 (85) 100 01/13/18 15:50 97.6 73 18 110/60 (77) 100 I/O 01/13/18 01/13/18 01/13/18 01/14/18 01/14/18 01/14/18 07:00 15:00 23:00 07:00 15:00 23:00 Intake Total 720 ml Balance 720 ml Intake Oral 720 ml # Voids 3 # Bowel Movements 0 Result Diagram: 01/11/18 0522 01/14/18 1102 Imaging Last Impressions Thoracentesis Ultrasound 01/13/18 0000 Signed Impressions: Service Date/Time: December 15:02 - CONCLUSION: Uncomplicated ultrasound guided thoracentesis. Preet Chavez MD Chest X-Ray 01/13/18 0000 Signed Impressions: Service Date/Time: December 15:41 - CONCLUSION: 1. Very small subpulmonic pneumothorax following thoracentesis with interval resolution of left-sided pleural effusion. Eric Pham MD Chest Ultrasound 01/11/18 0000 Signed Impressions: Service Date/Time: Thursday, January 11, 2018 14:01 - CONCLUSION: Moderate size right pleural effusion. This is simple in appearance. Dewayne Donaldson Jr., MD Renal Ultrasound 01/02/18 0000 Signed Impressions: Service Date/Time: Tuesday, January 02, 2018 14:33 - CONCLUSION: Left pleural effusion with sinusitis and possible fatty liver. Ernestine King MD Head CT 12/28/17 0807 Signed Impressions: Service Date/Time: Thursday, December 28, 2017 09:04 - CONCLUSION: No acute disease. No significant change has occurred. Héctor Carmona MD Abdomen/Pelvis CT 12/28/17 0000 Signed Impressions: Service Date/Time: Thursday, December 28, 2017 09:07 - CONCLUSION: Stable abdomen. No evidence of free air and no evidence of obstruction. Large bilateral pleural effusions with ascites and anasarca. Diverticuli uncomplicated of the colon with diminished mural thickening of the colon suggesting improving colitis. Lim catheter in place in the urinary bladder. Héctor Carmona MD Objective Remarks GENERAL: NAD SKIN: Warm and dry. HEAD: Normocephalic. EYES: No scleral icterus. No injection or drainage. NECK: Supple, trachea midline. No JVD or lymphadenopathy. CARDIOVASCULAR: Regular rate and rhythm without murmurs, gallops, or rubs. RESPIRATORY: Breath sounds decrease bilaterally. No accessory muscle use. GASTROINTESTINAL: Abdomen soft, non-tender, nondistended. MUSCULOSKELETAL: No cyanosis, or edema. BACK: Nontender without obvious deformity. No CVA tenderness. Procedures none A/P Problem List: (1) Sepsis ICD Code: A41.9 - Sepsis, unspecified organism Status: Resolved (2) Hypothermia ICD Code: T68.XXXA - Hypothermia, initial encounter Status: Resolved (3) Hypoglycemia ICD Code: E16.2 - Hypoglycemia, unspecified Status: Acute (4) IDDM (insulin dependent diabetes mellitus) ICD Code: E11.9 - Type 2 diabetes mellitus without complications; Z79.4 - vermin exterminator (current) use of insulin Status: Chronic (5) Acute on chronic diastolic heart failure ICD Code: I50.33 - Acute on chronic diastolic (congestive) heart failure Status: Resolved (6) Severe protein-calorie malnutrition ICD Code: E43 - Unspecified severe protein-calorie malnutrition Status: Chronic (7) Bilateral pleural effusion ICD Code: J90 - Pleural effusion, not elsewhere classified Status: Acute (8) BPPV (benign paroxysmal positional vertigo) ICD Code: H81.10 - Benign paroxysmal vertigo, unspecified ear (9) CAD (coronary artery disease) ICD Code: I25.10 - Atherosclerotic heart disease of [place] coronary artery without angina pectoris Status: Chronic (10) HTN (hypertension) ICD Code: I10 - Essential (primary) hypertension Status: Chronic (11) COPD (chronic obstructive pulmonary disease) ICD Code: J44.9 - Chronic obstructive pulmonary disease, unspecified (12) Marijuana abuse ICD Code: F12.10 - Cannabis abuse, uncomplicated (13) Clostridium difficile colitis ICD Code: A04.7 - Enterocolitis due to Clostridium difficile Status: Resolved (14) Anemia ICD Code: D64.9 - Anemia, unspecified Assessment and Plan 67-year-old female with sepsis-Resolved Bacteremia with gram-positive bacteria. Staph epi. s/p treatment with Daptomycin. Hypothermia-Resolved Elevated TSH on admission Cortisol level and is suspected range. The patient was placed on IV hydrocortisone. TSH elevation likely elevated due to stress and acute illness. Severe malnutrition. Encourage with Glucerna supplements. DM hypoglycemia on admission-Resolved Continue SSI and insulin Levemir 5units Q12H. Acute diastolic CHF exacerbation Decrease IV diuretics 40mg to Q12H, continue Aldactone, Imdur, Coreg Bilateral pleural effusions Cardiology cannot clear patient to hold Effient due to recent drug-eluting stent. Expect these are secondary to CHF. 01/08 sp US guided thoracentesis with drainage of 800 cc of pleural fluid which looks noninfectious. s/p Right sided ultrasound guided thoracentesis 01/12/18-Cytology negative s/p US guided thoracentesis of Left Lung 01/13/18 This was discussed yesterday with interventional radiology regarding future care plan as pleural effusion is concerned. However, patient with a history of CAD, cardiomyopathy with stent placement and currently on Effient, Pleural cath placement is contraindicated. Therefore thoracentesis along with diuretic therapy appear to be the treatments of choice at this time. CONOR on CKD Continue Aldactone 8, metolazone, IV Lasix and albumin. Continue to avoid nephrotoxins, monitor I's and O's and monitor BMP. Appreciate input from Nephrology CAD. Uncontrolled hypertension Continue Cardura 4mg daily and Coreg BID, Hydralazine 75mg Q8H. Benign paroxysmal postural vertigo Meclizine PRN Marijuana abuse. Cessation counseling provided. COPD. Continue Duo Nebs, Appreciate input from Pulmonary medicine C. difficile infection. Continue oral vancomycin for a total of 14 days. Anemia. Likely anemia of chronic disease. Patient with CKD stage IV. Hemoglobin stable. Transfused 2 units PRBC Continue oral iron. Right leg wound. Podiatry consulted. Recommended calcium alginate with silver dressing every 3 days. Elevate legs at all times. Recommend follow-up with Dr. Read at the wound center after discharge. Acute Hypoxemic respiratory failure-Improving Improved s/p Thoracentesis s/p Solu Medrol and continue with Lasix IV Maintain oxygen saturation above 92% Problem Qualifiers (1) Hypothermia: Qualified Codes: T68.XXXD - Hypothermia, subsequent encounter (2) BPPV (benign paroxysmal positional vertigo): Qualified Codes: H81.10 - Benign paroxysmal vertigo, unspecified ear Je Morales MD Jan 14, 2018 13:01
[2018-01-14 16:00] VITALS: BP 152/70; PULSE 79; RESP 18; TEMP 98; O2SAT 97
--- NOTE | 2018-01-14 17:55 | HHI.PR ---
Subjective Remarks 67 YOWF with CAD, s/p stent, COPD,Pl eff US chest bilat pl eff, R.L On 3-4 LNC Feels much better SOB improved had recuurent pl eff Objective Vital Signs Vital Signs Date Time Temp Pulse Resp B/P (MAP) Pulse Ox O2 Delivery O2 Flow Rate FiO2 01/14/18 16:00 98.0 79 18 152/70 (97) 97 01/14/18 16:00 79 01/14/18 12:00 98.5 75 18 136/62 (86) 95 01/14/18 12:00 73 01/14/18 08:00 72 01/14/18 08:00 98.1 73 18 129/63 (85) 93 01/14/18 07:59 Nasal Cannula 2.00 01/14/18 04:00 Nasal Cannula 2.00 01/14/18 04:00 98.4 74 12 149/69 (95) 92 01/14/18 04:00 70 01/14/18 00:00 65 01/14/18 00:00 97.8 68 18 156/69 (98) 97 01/14/18 00:00 Nasal Cannula 2.00 01/13/18 20:00 98.2 75 18 141/63 (89) 98 01/13/18 20:00 65 01/13/18 20:00 Nasal Cannula 2.00 I/O 01/13/18 01/13/18 01/13/18 01/14/18 01/14/18 01/14/18 07:00 15:00 23:00 07:00 15:00 23:00 Intake Total 720 ml Balance 720 ml Intake Oral 720 ml # Voids 3 # Bowel Movements 0 Result Diagram: 01/11/18 0522 01/14/18 1102 Objective Remarks GENERAL: MBMN WF,NAD SKIN: Warm and dry. HEAD: Normocephalic. EYES: No scleral icterus. No injection or drainage. NECK: Supple, trachea midline. No JVD or lymphadenopathy. CARDIOVASCULAR: Regular rate and rhythm without murmurs, gallops, or rubs. RESPIRATORY: Breath sounds equal bilaterally. No accessory muscle use. GASTROINTESTINAL: Abdomen soft, non-tender, nondistended. MUSCULOSKELETAL: No cyanosis, or edema. BACK: Nontender without obvious deformity. No CVA tenderness. A/P Assessment and Plan Pl eff, s/p TC CHF CAD, s/p stent COPD PLAN: Diurease Aerosol nebs Supplement 02 Cytology Negative DW pt Pt has recurrent pl ef, requiring TC If chest plurex are placed, high risk of infection Aaron Blankenship MD Jan 14, 2018 17:55
--- NOTE | 2018-01-14 18:29 | PD.CARD.PN ---
Subjective Subjective Remarks No CP or SOB, no new c/o Objective Medications Current Medications Medications (Trade) Dose Ordered Sig/Marie Route Start Time Stop Time Status Last Admin (NS Flush) 2 ml UNSCH PRN IV FLUSH 12/28/17 10:45 (NS Flush) 2 ml BID IV FLUSH 12/28/17 21:00 01/14/18 08:52 (Zofran Inj) 4 mg Q6H PRN IVP 12/28/17 10:45 01/01/18 08:20 (Narcan Inj) 0.4 mg UNSCH PRN IV PUSH 12/28/17 10:45 (Milk Of Magnesia Liq) 30 ml Q12H PRN PO 12/28/17 10:45 (Senokot) 17.2 mg Q12H PRN PO 12/28/17 10:45 (Dulcolax Supp) 10 mg DAILY PRN RECTAL 12/28/17 10:45 (Lactulose Liq) 30 ml DAILY PRN PO 12/28/17 10:45 (D50w (Vial) Inj) 50 ml UNSCH PRN IV PUSH 12/28/17 10:45 01/01/18 08:38 (Glucagon Inj) 1 mg STAT PRN IM 12/28/17 10:45 (Aspirin Chew) 81 mg DAILY CHEW 12/29/17 09:00 01/14/18 08:50 (Lipitor) 40 mg HS PO 12/28/17 21:00 Future Hold 01/01/18 21:14 (Effient) 10 mg DAILY PO 12/29/17 09:00 01/14/18 08:50 (Heparin Inj) 5,000 units Q12HR SQ 12/28/17 21:00 01/14/18 08:51 ([place] 5-325 Mg) 1 tab Q6H PRN PO 12/28/17 20:45 01/14/18 06:03 Miscellaneous Information Patient in critical care unit? Ass... Q361D .XX 12/28/17 23:30 12/28/17 23:30 (Imdur) 60 mg DAILY@07 PO 12/31/17 07:00 01/14/18 06:02 (Catapres) 0.1 mg Q6H PRN PO 12/30/17 18:30 2/6/18 12:46 (Atrovent Neb) 0.5 mg Q6HR NEB PRN NEB 12/31/17 18:30 01/09/18 05:21 (Apresoline) 75 mg Q8HR PO 12/31/17 22:00 01/14/18 14:40 (Pill Splitter) 1 ea UNSCH PRN OTHER 12/31/17 18:45 (Procardia Xl) 30 mg Q12HR PO 01/01/18 21:00 01/14/18 08:50 (Aldactone) 12.5 mg DAILY PO 01/02/18 10:00 01/14/18 08:50 (NovoLOG SUPPLEMENTAL SCALE) 1 ACHS SLIDING SCALE SQ 01/02/18 12:00 01/14/18 17:22 (Levemir Inj) 5 units Q12HR SQ 01/04/18 09:00 01/14/18 08:53 (Coreg) 6.25 mg Q12HR PO 01/04/18 21:00 01/14/18 08:50 (Cardura) 2 mg DAILY PO 01/05/18 09:00 01/14/18 08:49 (Cardura) 2 mg DAILY PO 01/05/18 09:00 01/14/18 08:49 (Vancomycin 25 Mg/ml Liq) 125 mg QID PO 01/07/18 14:46 01/14/18 17:22 (Tylenol) 650 mg Q4H PRN PO 01/08/18 10:30 (Benadryl) 25 mg Q4H PRN PO 01/08/18 10:30 (Ferrous Sulfate) 325 mg BID PO 01/10/18 21:00 01/14/18 09:02 (Antivert) 25 mg Q8H PRN PO 01/10/18 18:15 (Lasix Inj) 40 mg Q12H IV PUSH 01/13/18 21:00 01/14/18 08:52 Vital Signs / I&O Vital Signs Date Time Temp Pulse Resp B/P (MAP) Pulse Ox O2 Delivery O2 Flow Rate FiO2 01/14/18 16:00 98.0 79 18 152/70 (97) 97 01/14/18 16:00 79 01/14/18 16:00 Nasal Cannula 2.00 01/14/18 12:00 Nasal Cannula 2.00 01/14/18 12:00 98.5 75 18 136/62 (86) 95 01/14/18 12:00 73 01/14/18 08:00 72 01/14/18 08:00 98.1 73 18 129/63 (85) 93 01/14/18 07:59 Nasal Cannula 2.00 01/14/18 04:00 Nasal Cannula 2.00 01/14/18 04:00 98.4 74 12 149/69 (95) 92 01/14/18 04:00 70 01/14/18 00:00 65 01/14/18 00:00 97.8 68 18 156/69 (98) 97 01/14/18 00:00 Nasal Cannula 2.00 01/13/18 20:00 98.2 75 18 141/63 (89) 98 01/13/18 20:00 65 01/13/18 20:00 Nasal Cannula 2.00 I/O 01/13/18 01/13/18 01/13/18 01/14/18 01/14/18 01/14/18 07:00 15:00 23:00 07:00 15:00 23:00 Intake Total 720 ml Balance 720 ml Intake Oral 720 ml # Voids 3 # Bowel Movements 0 Physical Exam GENERAL: In NAD. SKIN: Warm and dry. HEAD: Normocephalic. EYES: No scleral icterus. No injection or drainage. NECK: Supple, trachea midline. No JVD or lymphadenopathy. CARDIOVASCULAR: Regular rate and rhythm without murmurs, gallops, or rubs. RESPIRATORY: Breath sounds equal bilaterally. No accessory muscle use. GASTROINTESTINAL: Abdomen soft, non-tender, nondistended. MUSCULOSKELETAL: No cyanosis, bilat LE edema Laboratory Laboratory Tests Test 01/14/18 11:02 Blood Urea Nitrogen 66 MG/DL Creatinine 3.24 MG/DL Random Glucose 238 MG/DL Calcium Level 8.1 MG/DL Sodium Level 140 MEQ/L Potassium Level 4.2 MEQ/L Chloride Level 105 MEQ/L Carbon Dioxide Level 28.4 MEQ/L Anion Gap 7 MEQ/L Estimat Glomerular Filtration Rate 14 ML/MIN Assessment and Plan Problem List: (1) Bradycardia ICD Codes: R00.1 - Bradycardia, unspecified Status: Acute (2) Altered mental status ICD Codes: R41.82 - Altered mental status, unspecified Status: Acute (3) Hypoglycemia ICD Codes: E16.2 - Hypoglycemia, unspecified Status: Acute (4) CHF (congestive heart failure) ICD Codes: I50.9 - Heart failure, unspecified (5) Renal insufficiency ICD Codes: N28.9 - Disorder of kidney and ureter, unspecified (6) DM (diabetes mellitus) ICD Codes: E11.9 - Type 2 diabetes mellitus without complications Status: Chronic (7) CAD (coronary artery disease) ICD Codes: I25.10 - Atherosclerotic heart disease of [place] coronary artery without angina pectoris Status: Chronic (8) Chronic kidney disease, stage 4 (severe) ICD Codes: N18.4 - Chronic kidney disease, stage 4 (severe) Status: Chronic (9) Bacteremia ICD Codes: R78.81 - Bacteremia (10) Clostridium difficile colitis ICD Codes: A04.7 - Enterocolitis due to Clostridium difficile Status: Resolved Assessment and Plan Difficult situation due to recurrent pleural effusions and severe renal insufficiency. Continue current program including diuresis; wait if renal fx improves. D/w Dr. Blankenship and Dr. Toro. She had drug eluting stent in Jun 2017; Effient and ASA cannot be stopped unless life threatening emergency occur for 1 year (high risk of stent thrombosis off meds). Nephrology eval and mgmt. Increase activity. PT. health services manager to see for placement once ready for discharge, doubt she can go back to her current home environment. Will schedule outpt f/u. Problem Qualifiers (1) Altered mental status: Qualified Codes: R40.0 - Somnolence (2) DM (diabetes mellitus): Qualified Codes: E11.628 - Type 2 diabetes mellitus with other skin complications; Z79.4 - [facility] (current) use of insulin (3) CAD (coronary artery disease): Qualified Codes: I25.10 - Atherosclerotic heart disease of [place] coronary artery without angina pectoris Dunia Reddy MD Jan 14, 2018 18:29
[2018-01-14 20:00] VITALS: BP 147/65; PULSE 77; RESP 18; TEMP 97.4; O2SAT 97
[2018-01-15] VITALS (9 sets, daily range): BP systolic 131–162; BP diastolic 61–73; PULSE 65–79; RESP 16–18; TEMP 97.4–98.2; O2SAT 92–97
[2018-01-15] MEDS: hydrALAZINE HCL 50 MG TAB PO SCH ×3 (05:28→21:16)
[2018-01-15] MEDS: ISOSORBIDE MONONITRATE 60 MG CR TAB (IMDUR) PO SCH (05:28)
[2018-01-15] MEDS: INSULIN ASPART SUPPLEMENTAL SCALE SQ SCH ×4 (08:00→20:50)
[2018-01-15] MEDS: DOXAZOSIN MESYLATE 2 MG TAB PO SCH ×2 (09:00→09:54)
[2018-01-15] MEDS: CARVEDILOL 6.25 MG TAB PO SCH ×2 (09:54→20:34)
[2018-01-15] MEDS: ASPIRIN 81 MG CHEW TAB CHEW SCH (09:54)
[2018-01-15] MEDS: HEPARIN SODIUM - SQ 10,000 UNITS/ML VIAL SQ SCH ×2 (09:54→20:34)
[2018-01-15] MEDS: NIFEdipine 30 MG SUSTAINED RELEASE TAB PO SCH ×2 (09:54→20:34)
[2018-01-15] MEDS: FERROUS SULFATE 325 MG (65 MG ELEMENTAL IRON) TAB PO SCH ×2 (09:54→20:34)
[2018-01-15] MEDS: SPIRONOLACTONE 25 MG TAB PO SCH (09:55)
[2018-01-15] MEDS: FUROSEMIDE 40 MG/4 ML VIAL IV PUSH SCH ×2 (09:56→20:34)
[2018-01-15] MEDS: SODIUM CHLORIDE 0.9% FLUSH 10 ML FLUSH IV FLUSH SCH ×2 (09:56→20:49)
[2018-01-15] MEDS: VANCOMYCIN 25 MG/ML SUSP 100 ML BOTTLE PO SCH ×4 (09:56→21:09)
[2018-01-15] MEDS: PRASUGREL 10 MG TAB PO SCH (09:57)
[2018-01-15] MEDS: INSULIN DETEMIR 100 UNITS/ML VIAL SQ SCH ×2 (09:58→20:50)
--- NOTE | 2018-01-15 11:49 | HHI.PR ---
Subjective Remarks Follow-up sepsis/bilateral pleural effusion 01/12/18-patient seen and examined, complains of shortness of breath and requires 5 L nasal cannula oxygen. Plan for right thoracentesis today 01/13/18-patient seen and examined, reports significant improvement of shortness of breath after 1.2 L removed from the right lung yesterday. 01/14/18-patient seen and examined, states she had a rough night sleeping. Patient had 1.25L out removed from left lung yesterday complicated by very small subpulmonic pneumothorax. Discussed today with pulmonary medicine.. 01/15/18-patient seen and examined; SOB improved, Renal indices worsening. No acute event overnight Objective Vitals Vital Signs Date Time Temp Pulse Resp B/P (MAP) Pulse Ox O2 Delivery O2 Flow Rate FiO2 01/15/18 08:00 98.2 67 18 131/61 (84) 92 01/15/18 04:00 97.7 66 18 142/69 (93) 95 01/15/18 00:00 97.4 76 17 162/73 (102) 94 01/14/18 20:00 97.4 77 18 147/65 (92) 97 01/14/18 16:00 98.0 79 18 152/70 (97) 97 01/14/18 16:00 79 01/14/18 16:00 Nasal Cannula 2.00 01/14/18 12:00 Nasal Cannula 2.00 01/14/18 12:00 98.5 75 18 136/62 (86) 95 01/14/18 12:00 73 I/O 01/14/18 01/14/18 01/14/18 01/15/18 01/15/18 01/15/18 07:00 15:00 23:00 07:00 15:00 23:00 Intake Total 480 ml 600 ml Balance 480 ml 600 ml Intake Oral 480 ml 600 ml # Voids 1 2 # Bowel Movements 2 Result Diagram: 01/11/18 0522 01/14/18 1102 Objective Remarks GENERAL: NAD SKIN: Warm and dry. HEAD: Normocephalic. EYES: No scleral icterus. No injection or drainage. NECK: Supple, trachea midline. No JVD or lymphadenopathy. CARDIOVASCULAR: Regular rate and rhythm without murmurs, gallops, or rubs. RESPIRATORY: Breath sounds decrease bilaterally. No accessory muscle use. GASTROINTESTINAL: Abdomen soft, non-tender, nondistended. MUSCULOSKELETAL: No cyanosis, or edema. BACK: Nontender without obvious deformity. No CVA tenderness. Procedures none A/P Problem List: (1) Sepsis ICD Code: A41.9 - Sepsis, unspecified organism Status: Resolved (2) Hypothermia ICD Code: T68.XXXA - Hypothermia, initial encounter Status: Resolved (3) Hypoglycemia ICD Code: E16.2 - Hypoglycemia, unspecified Status: Acute (4) IDDM (insulin dependent diabetes mellitus) ICD Code: E11.9 - Type 2 diabetes mellitus without complications; Z79.4 - [facility] (current) use of insulin Status: Chronic (5) Acute on chronic diastolic heart failure ICD Code: I50.33 - Acute on chronic diastolic (congestive) heart failure Status: Resolved (6) Severe protein-calorie malnutrition ICD Code: E43 - Unspecified severe protein-calorie malnutrition Status: Chronic (7) Bilateral pleural effusion ICD Code: J90 - Pleural effusion, not elsewhere classified Status: Acute (8) BPPV (benign paroxysmal positional vertigo) ICD Code: H81.10 - Benign paroxysmal vertigo, unspecified ear (9) CAD (coronary artery disease) ICD Code: I25.10 - Atherosclerotic heart disease of [place] coronary artery without angina pectoris Status: Chronic (10) HTN (hypertension) ICD Code: I10 - Essential (primary) hypertension Status: Chronic (11) COPD (chronic obstructive pulmonary disease) ICD Code: J44.9 - Chronic obstructive pulmonary disease, unspecified (12) Marijuana abuse ICD Code: F12.10 - Cannabis abuse, uncomplicated (13) Clostridium difficile colitis ICD Code: A04.7 - Enterocolitis due to Clostridium difficile Status: Resolved (14) Anemia ICD Code: D64.9 - Anemia, unspecified Assessment and Plan 67-year-old female with sepsis-Resolved Bacteremia with gram-positive bacteria. Staph epi. s/p treatment with Daptomycin. Hypothermia-Resolved Elevated TSH on admission Cortisol level and is suspected range. The patient was placed on IV hydrocortisone. TSH elevation likely elevated due to stress and acute illness. Severe malnutrition. Encourage with Glucerna supplements. DM hypoglycemia on admission-Resolved Continue SSI and insulin Levemir 5units Q12H. Acute diastolic CHF exacerbation Currently on IV diuretics 40mg Q12H, continue Aldactone, Imdur, Coreg Bilateral pleural effusions Cardiology cannot clear patient to hold Effient due to recent drug-eluting stent. Expect these are secondary to CHF. 01/08 sp US guided thoracentesis with drainage of 800 cc of pleural fluid which looks noninfectious. s/p Right sided ultrasound guided thoracentesis 01/12/18-Cytology negative s/p US guided thoracentesis of Left Lung 01/13/18 This was discussed yesterday with interventional radiology regarding future care plan as pleural effusion is concerned. However, patient with a history of CAD, cardiomyopathy with stent placement and currently on Effient, Pleural cath placement is contraindicated. Therefore thoracentesis along with diuretic therapy appear to be the treatments of choice at this time. CONOR on CKD Continue Aldactone 8, metolazone, IV Lasix and albumin. Continue to avoid nephrotoxins, monitor I's and O's and monitor BMP. Appreciate input from Nephrology however if no improvement in Renal indices by Wednesday, Nephrology to consider ultrafiltration by Dialysis CAD. Uncontrolled hypertension Continue Cardura 4mg daily and Coreg BID, Hydralazine 75mg Q8H. Benign paroxysmal postural vertigo Meclizine PRN Marijuana abuse. Cessation counseling provided. COPD. Continue Duo Nebs, Appreciate input from Pulmonary medicine C. difficile infection. s/p oral vancomycin x 14 days. Anemia. Likely anemia of chronic disease. Patient with CKD stage IV. Hemoglobin stable. Transfused 2 units PRBC Continue oral iron. Right leg wound. Podiatry consulted. Recommended calcium alginate with silver dressing every 3 days. Elevate legs at all times. Recommend follow-up with Dr. Read at the wound center after discharge. Acute Hypoxemic respiratory failure-Improving Improved s/p Thoracentesis s/p Solu Medrol and continue with Lasix IV Maintain oxygen saturation above 92% Problem Qualifiers (1) Hypothermia: Qualified Codes: T68.XXXD - Hypothermia, subsequent encounter (2) BPPV (benign paroxysmal positional vertigo): Qualified Codes: H81.10 - Benign paroxysmal vertigo, unspecified ear Je Morales MD Jan 15, 2018 11:49
--- NOTE | 2018-01-15 17:56 | HHI.NPPN ---
Subjective History of Present Illness This is a 67-year-old female known to me from before, has been following with me in the office with past medical history of hypertension, ischemic heart disease, congestive heart failure, diabetes mellitus, chronic obstructive pulmonary disease, chronic anemia, hyperlipidemia, chronic kidney disease, came to the hospital with low blood sugar. I was called to see the patient because of elevated BUN and creatinine. The patient has known history of chronic kidney disease. Her baseline creatinine is around 1.6-1.8. She came in with creatinine of 1.6 and it has gone up to 2.0 and 2.1. The patient was hypotensive on admission and also she has bradycardia and she was hypothermic. She is much better now, her sugar has gone up after given the D50 and she is currently sitting in the chair with nasal cannula. She has mild shortness of breath. According to her the swelling in the leg has been improving but she still has a lot of edema in the legs. She denies any headache or dizziness at present. No chest pain. She has mild cough which is mainly dry. No history of dysuria, hematuria, difficulty passing urine. Additional Remarks Mild SOB and chest discomfort Review of Systems Respiratory Lungs: SOB Cardiovascular Cardiac: Chest Pain Gastrointestinal GI Remarks No abdominal pain Objective Data Data Vital Signs Date Time Temp Pulse Resp B/P (MAP) Pulse Ox O2 Delivery O2 Flow Rate FiO2 01/15/18 16:00 97.9 73 18 153/70 (97) 97 01/15/18 16:00 Nasal Cannula 2.00 01/15/18 12:00 Nasal Cannula 2.00 01/15/18 12:00 97.7 77 18 149/65 (93) 94 01/15/18 08:00 98.2 67 18 131/61 (84) 92 01/15/18 08:00 Nasal Cannula 2.00 01/15/18 04:00 97.7 66 18 142/69 (93) 95 01/15/18 00:00 97.4 76 17 162/73 (102) 94 01/14/18 20:00 97.4 77 18 147/65 (92) 97 -: 01/11/18 0522 01/14/18 1102 Physical Exam General Appearance: Well Nourished, No Acute Distress, Comfortable Eyes Eye Exam: Pupils Equal Pulmonary Resp Exam: Breath Sounds Equal, No Distress, Decreased Bases Cardiology CV Exam: Regular, Normal Sinus Rhythm Gastrointestinal/Abdomen GI Exam: Soft, Non-Tender, Bowel Sounds Present Genitourinary Exam: Flank Non-Tender Integumentary Skin Exam: Clear, Warm, Ulcer(s) Extremeties Extremities Exam: Pitting Edema Neurologic Neuro Exam: Alert, Awake Psychiatric Psych Exam: Appropriate Responses Assessment/Plan Discussed Condition With: Patient Assessment Summary: CKD Stage IV Problem List: (1) Renal insufficiency ICD Codes: N28.9 - Disorder of kidney and ureter, unspecified Plan: The patient has chronic kidney disease with proteinuria, most likely she has diabetic nephropathy On Vanco PO Good UOP Renal US noted Plan Continue to monitor I+O continue Lasix every 12 hours Avoid nephrotoxins Once the kidney function is stabilized and she can be started on RUSS inhibitor, if her renal function stabilize. Post Thoracentesis, 1200 cc removed from Rt. side very small subpulmonic pneumothorax following thoracentesis Slight increase in creatinine at 3.24 Lasix has been decreased. Patient seen and examined, agree with above. Patient need to be compliant with fluid intake. If not better by Wednesday, will consider ultrafiltration by Dialysis. continue to monitor (2) Leukocytosis ICD Codes: D72.829 - Elevated white blood cell count, unspecified Status: Acute (3) Hypertension ICD Codes: I10 - Essential (primary) hypertension Status: Chronic Plan: Blood pressure improving Continue the same (4) Sepsis ICD Codes: A41.9 - Sepsis, unspecified organism Status: Resolved (5) Anemia ICD Codes: D64.9 - Anemia, unspecified Status: Chronic (6) Stage 4 chronic kidney disease ICD Codes: N18.4 - Chronic kidney disease, stage 4 (severe) Problem Qualifiers (1) Hypertension: Qualified Codes: I10 - Essential (primary) hypertension Rigoberto Blue MD Jan 15, 2018 17:56
--- NOTE | 2018-01-15 19:19 | PD.CARD.PN ---
Subjective Subjective Remarks No CP, mild SOB, no change Objective Medications Current Medications Medications (Trade) Dose Ordered Sig/Marie Route Start Time Stop Time Status Last Admin (NS Flush) 2 ml UNSCH PRN IV FLUSH 12/28/17 10:45 (NS Flush) 2 ml BID IV FLUSH 12/28/17 21:00 01/15/18 09:56 (Zofran Inj) 4 mg Q6H PRN IVP 12/28/17 10:45 01/01/18 08:20 (Narcan Inj) 0.4 mg UNSCH PRN IV PUSH 12/28/17 10:45 (Milk Of Magnesia Liq) 30 ml Q12H PRN PO 12/28/17 10:45 (Senokot) 17.2 mg Q12H PRN PO 12/28/17 10:45 (Dulcolax Supp) 10 mg DAILY PRN RECTAL 12/28/17 10:45 (Lactulose Liq) 30 ml DAILY PRN PO 12/28/17 10:45 (D50w (Vial) Inj) 50 ml UNSCH PRN IV PUSH 12/28/17 10:45 01/01/18 08:38 (Glucagon Inj) 1 mg STAT PRN IM 12/28/17 10:45 (Aspirin Chew) 81 mg DAILY CHEW 12/29/17 09:00 01/15/18 09:54 (Lipitor) 40 mg HS PO 12/28/17 21:00 Future Hold 01/01/18 21:14 (Effient) 10 mg DAILY PO 12/29/17 09:00 01/15/18 09:57 (Heparin Inj) 5,000 units Q12HR SQ 12/28/17 21:00 01/15/18 09:54 ([place] 5-325 Mg) 1 tab Q6H PRN PO 12/28/17 20:45 01/14/18 21:26 Miscellaneous Information Patient in critical care unit? Ass... Q361D .XX 12/28/17 23:30 12/28/17 23:30 (Imdur) 60 mg DAILY@07 PO 12/31/17 07:00 01/15/18 05:28 (Catapres) 0.1 mg Q6H PRN PO 12/30/17 18:30 01/04/18 12:46 (Atrovent Neb) 0.5 mg Q6HR NEB PRN NEB 12/31/17 18:30 01/09/18 05:21 (Apresoline) 75 mg Q8HR PO 12/31/17 22:00 01/15/18 15:12 (Pill Splitter) 1 ea UNSCH PRN OTHER 12/31/17 18:45 (Procardia Xl) 30 mg Q12HR PO 01/01/18 21:00 01/15/18 09:54 (Aldactone) 12.5 mg DAILY PO 01/02/18 10:00 01/15/18 09:55 (NovoLOG SUPPLEMENTAL SCALE) 1 ACHS SLIDING SCALE SQ 01/02/18 12:00 01/15/18 18:26 (Levemir Inj) 5 units Q12HR SQ 01/04/18 09:00 01/15/18 09:58 (Coreg) 6.25 mg Q12HR PO 01/04/18 21:00 01/15/18 09:54 (Cardura) 2 mg DAILY PO 01/05/18 09:00 01/15/18 09:54 (Cardura) 2 mg DAILY PO 01/05/18 09:00 01/14/18 08:49 (Vancomycin 25 Mg/ml Liq) 125 mg QID PO 01/07/18 14:46 01/15/18 18:25 (Tylenol) 650 mg Q4H PRN PO 01/08/18 10:30 (Benadryl) 25 mg Q4H PRN PO 01/08/18 10:30 (Ferrous Sulfate) 325 mg BID PO 01/10/18 21:00 01/15/18 09:54 (Antivert) 25 mg Q8H PRN PO 01/10/18 18:15 (Lasix Inj) 40 mg Q12H IV PUSH 01/13/18 21:00 01/15/18 09:56 Vital Signs / I&O Vital Signs Date Time Temp Pulse Resp B/P (MAP) Pulse Ox O2 Delivery O2 Flow Rate FiO2 01/15/18 16:00 97.9 73 18 153/70 (97) 97 01/15/18 16:00 Nasal Cannula 2.00 01/15/18 12:00 Nasal Cannula 2.00 01/15/18 12:00 97.7 77 18 149/65 (93) 94 01/15/18 08:00 98.2 67 18 131/61 (84) 92 01/15/18 08:00 Nasal Cannula 2.00 01/15/18 04:00 97.7 66 18 142/69 (93) 95 01/15/18 00:00 97.4 76 17 162/73 (102) 94 01/14/18 20:00 97.4 77 18 147/65 (92) 97 I/O 01/14/18 01/14/18 01/14/18 01/15/18 01/15/18 01/15/18 07:00 15:00 23:00 07:00 15:00 23:00 Intake Total 480 ml 600 ml 480 ml Balance 480 ml 600 ml 480 ml Intake Oral 480 ml 600 ml 480 ml # Voids 1 2 4 # Bowel Movements 2 4 Physical Exam GENERAL: In NAD. SKIN: Warm and dry. HEAD: Normocephalic. EYES: No scleral icterus. No injection or drainage. NECK: Supple, trachea midline. No JVD or lymphadenopathy. CARDIOVASCULAR: Regular rate and rhythm without murmurs, gallops, or rubs. RESPIRATORY: Breath sounds equal bilaterally. No accessory muscle use. GASTROINTESTINAL: Abdomen soft, non-tender, nondistended. MUSCULOSKELETAL: No cyanosis, bilat LE edema Assessment and Plan Problem List: (1) Bradycardia ICD Codes: R00.1 - Bradycardia, unspecified Status: Acute (2) Altered mental status ICD Codes: R41.82 - Altered mental status, unspecified Status: Acute (3) Hypoglycemia ICD Codes: E16.2 - Hypoglycemia, unspecified Status: Acute (4) CHF (congestive heart failure) ICD Codes: I50.9 - Heart failure, unspecified (5) Renal insufficiency ICD Codes: N28.9 - Disorder of kidney and ureter, unspecified (6) DM (diabetes mellitus) ICD Codes: E11.9 - Type 2 diabetes mellitus without complications Status: Chronic (7) CAD (coronary artery disease) ICD Codes: I25.10 - Atherosclerotic heart disease of [place] coronary artery without angina pectoris Status: Chronic (8) Chronic kidney disease, stage 4 (severe) ICD Codes: N18.4 - Chronic kidney disease, stage 4 (severe) Status: Chronic (9) Bacteremia ICD Codes: R78.81 - Bacteremia (10) Clostridium difficile colitis ICD Codes: A04.7 - Enterocolitis due to Clostridium difficile Status: Resolved Assessment and Plan Overall no change. Difficult situation due to recurrent pleural effusions and severe renal insufficiency. Continue current program including diuresis; wait if renal fx improves as per nephrology. She had drug eluting stent in Jun 2017; Effient and ASA cannot be stopped unless life threatening emergency occur for 1 year (high risk of stent thrombosis off meds). Increase activity. PT. park services specialist to see for placement once ready for discharge, doubt she can go back to her current home environment. No meaningful progress. Problem Qualifiers (1) Altered mental status: Qualified Codes: R40.0 - Somnolence (2) DM (diabetes mellitus): Qualified Codes: E11.628 - Type 2 diabetes mellitus with other skin complications; Z79.4 - [employer] (current) use of insulin (3) CAD (coronary artery disease): Qualified Codes: I25.10 - Atherosclerotic heart disease of [place] coronary artery without angina pectoris Dunia Reddy MD Jan 15, 2018 19:19
[2018-01-16] VITALS (9 sets, daily range): BP systolic 133–186; BP diastolic 63–76; PULSE 68–79; RESP 16–22; TEMP 97.4–98.2; O2SAT 93–97
[2018-01-16] MEDS: ISOSORBIDE MONONITRATE 60 MG CR TAB (IMDUR) PO SCH (06:11)
[2018-01-16] MEDS: hydrALAZINE HCL 50 MG TAB PO SCH ×3 (06:11→20:44)
[2018-01-16 07:58] LABS: CALCIUM 8.4 MG/DL (8.5-10.1); CREATININE 2.98 MG/DL (0.50-1.00)
[2018-01-16] MEDS: DOXAZOSIN MESYLATE 2 MG TAB PO SCH ×2 (09:00→09:21)
[2018-01-16] MEDS: SPIRONOLACTONE 25 MG TAB PO SCH (09:20)
[2018-01-16] MEDS: FERROUS SULFATE 325 MG (65 MG ELEMENTAL IRON) TAB PO SCH ×2 (09:21→20:36)
[2018-01-16] MEDS: CARVEDILOL 6.25 MG TAB PO SCH ×2 (09:21→20:36)
[2018-01-16] MEDS: ASPIRIN 81 MG CHEW TAB CHEW SCH (09:21)
[2018-01-16] MEDS: SODIUM CHLORIDE 0.9% FLUSH 10 ML FLUSH IV FLUSH SCH ×2 (09:21→21:00)
[2018-01-16] MEDS: NIFEdipine 30 MG SUSTAINED RELEASE TAB PO SCH ×2 (09:21→20:36)
[2018-01-16] MEDS: PRASUGREL 10 MG TAB PO SCH (09:21)
[2018-01-16] MEDS: FUROSEMIDE 40 MG/4 ML VIAL IV PUSH SCH ×2 (09:22→20:36)
[2018-01-16] MEDS: HEPARIN SODIUM - SQ 10,000 UNITS/ML VIAL SQ SCH (09:22)
[2018-01-16] MEDS: INSULIN ASPART SUPPLEMENTAL SCALE SQ SCH ×4 (09:23→20:36)
[2018-01-16] MEDS: VANCOMYCIN 25 MG/ML SUSP 100 ML BOTTLE PO SCH ×4 (09:23→20:37)
[2018-01-16] MEDS: INSULIN DETEMIR 100 UNITS/ML VIAL SQ SCH ×2 (09:24→20:36)
--- NOTE | 2018-01-16 09:58 | HHI.PR ---
Subjective Remarks Follow-up sepsis/bilateral pleural effusion 01/12/18-patient seen and examined, complains of shortness of breath and requires 5 L nasal cannula oxygen. Plan for right thoracentesis today 01/13/18-patient seen and examined, reports significant improvement of shortness of breath after 1.2 L removed from the right lung yesterday. 01/14/18-patient seen and examined, states she had a rough night sleeping. Patient had 1.25L out removed from left lung yesterday complicated by very small subpulmonic pneumothorax. Discussed today with pulmonary medicine.. 01/15/18-patient seen and examined; SOB improved, Renal indices worsening. No acute event overnight 01/16/18-patient seen and examined, creatinine trending down and patient without any significant shortness of breath. States she would like to go home. Objective Vitals Vital Signs Date Time Temp Pulse Resp B/P (MAP) Pulse Ox O2 Delivery O2 Flow Rate FiO2 01/16/18 08:00 98.0 71 21 175/70 (105) 93 01/16/18 04:00 98.2 69 17 160/71 (100) 97 01/16/18 04:00 Nasal Cannula 2.00 01/16/18 04:00 69 01/16/18 00:00 Nasal Cannula 2.00 01/16/18 00:00 98.0 74 16 134/74 (94) 96 01/16/18 00:00 79 01/15/18 20:00 74 01/15/18 20:00 98.1 75 16 162/72 (102) 97 01/15/18 20:00 Nasal Cannula 2.00 01/15/18 16:00 97.9 73 18 153/70 (97) 97 01/15/18 16:00 Nasal Cannula 2.00 01/15/18 15:48 74 01/15/18 12:04 79 01/15/18 12:00 Nasal Cannula 2.00 01/15/18 12:00 97.7 77 18 149/65 (93) 94 I/O 01/15/18 01/15/18 01/15/18 01/16/18 01/16/18 01/16/18 07:00 15:00 23:00 07:00 15:00 23:00 Intake Total 600 ml 480 ml 760 ml Balance 600 ml 480 ml 760 ml Intake Oral 600 ml 480 ml 760 ml # Voids 2 4 3 # Bowel Movements 2 4 3 Result Diagram: 01/16/18 0617 Imaging Last Impressions Thoracentesis Ultrasound 01/13/18 0000 Signed Impressions: Service Date/Time: December 15:02 - CONCLUSION: Uncomplicated ultrasound guided thoracentesis. Preet Chavez MD Chest X-Ray 01/13/18 0000 Signed Impressions: Service Date/Time: December 15:41 - CONCLUSION: 1. Very small subpulmonic pneumothorax following thoracentesis with interval resolution of left-sided pleural effusion. Eric Pham MD Chest Ultrasound 01/11/18 0000 Signed Impressions: Service Date/Time: Thursday, January 11, 2018 14:01 - CONCLUSION: Moderate size right pleural effusion. This is simple in appearance. Dewayne Donaldson Jr., MD Renal Ultrasound 01/02/18 0000 Signed Impressions: Service Date/Time: Tuesday, January 02, 2018 14:33 - CONCLUSION: Left pleural effusion with sinusitis and possible fatty liver. KMabel King MD Head CT 12/28/17 0807 Signed Impressions: Service Date/Time: Thursday, December 28, 2017 09:04 - CONCLUSION: No acute disease. No significant change has occurred. Héctor Carmona MD Abdomen/Pelvis CT 12/28/17 0000 Signed Impressions: Service Date/Time: Thursday, December 28, 2017 09:07 - CONCLUSION: Stable abdomen. No evidence of free air and no evidence of obstruction. Large bilateral pleural effusions with ascites and anasarca. Diverticuli uncomplicated of the colon with diminished mural thickening of the colon suggesting improving colitis. Lim catheter in place in the urinary bladder. Héctor Carmona MD Objective Remarks GENERAL: NAD SKIN: Warm and dry. HEAD: Normocephalic. EYES: No scleral icterus. No injection or drainage. NECK: Supple, trachea midline. No JVD or lymphadenopathy. CARDIOVASCULAR: Regular rate and rhythm without murmurs, gallops, or rubs. RESPIRATORY: Breath sounds equal bilaterally. No accessory muscle use. GASTROINTESTINAL: Abdomen soft, non-tender, nondistended. MUSCULOSKELETAL: No cyanosis, or edema. BACK: Nontender without obvious deformity. No CVA tenderness. Procedures none A/P Problem List: (1) Sepsis ICD Code: A41.9 - Sepsis, unspecified organism Status: Resolved (2) Hypothermia ICD Code: T68.XXXA - Hypothermia, initial encounter Status: Resolved (3) Hypoglycemia ICD Code: E16.2 - Hypoglycemia, unspecified Status: Acute (4) IDDM (insulin dependent diabetes mellitus) ICD Code: E11.9 - Type 2 diabetes mellitus without complications; Z79.4 - FPC (current) use of insulin Status: Chronic (5) Acute on chronic diastolic heart failure ICD Code: I50.33 - Acute on chronic diastolic (congestive) heart failure Status: Resolved (6) Severe protein-calorie malnutrition ICD Code: E43 - Unspecified severe protein-calorie malnutrition Status: Chronic (7) Bilateral pleural effusion ICD Code: J90 - Pleural effusion, not elsewhere classified Status: Acute (8) BPPV (benign paroxysmal positional vertigo) ICD Code: H81.10 - Benign paroxysmal vertigo, unspecified ear (9) CAD (coronary artery disease) ICD Code: I25.10 - Atherosclerotic heart disease of [place] coronary artery without angina pectoris Status: Chronic (10) HTN (hypertension) ICD Code: I10 - Essential (primary) hypertension Status: Chronic (11) COPD (chronic obstructive pulmonary disease) ICD Code: J44.9 - Chronic obstructive pulmonary disease, unspecified (12) Marijuana abuse ICD Code: F12.10 - Cannabis abuse, uncomplicated (13) Clostridium difficile colitis ICD Code: A04.7 - Enterocolitis due to Clostridium difficile Status: Resolved (14) Anemia ICD Code: D64.9 - Anemia, unspecified Assessment and Plan 67-year-old female with sepsis-Resolved Bacteremia with gram-positive bacteria. Staph epi. s/p treatment with Daptomycin. Hypothermia-Resolved Elevated TSH on admission Cortisol level and is suspected range. The patient was placed on IV hydrocortisone. TSH elevation likely elevated due to stress and acute illness. Severe malnutrition. Encourage with Glucerna supplements. DM hypoglycemia on admission-Resolved Continue SSI and insulin Levemir 5units Q12H. Acute diastolic CHF exacerbation Currently on IV diuretics 40mg Q12H, continue Aldactone, Imdur, Coreg Bilateral pleural effusions Cardiology cannot clear patient to hold Effient due to recent drug-eluting stent. Expect these are secondary to CHF. 01/08 sp US guided thoracentesis with drainage of 800 cc of pleural fluid which looks noninfectious. s/p Right sided ultrasound guided thoracentesis 01/12/18-Cytology negative s/p US guided thoracentesis of Left Lung 01/13/18 This was discussed yesterday with interventional radiology regarding future care plan as pleural effusion is concerned. However, patient with a history of CAD, cardiomyopathy with stent placement and currently on Effient, Pleural cath placement is contraindicated. Therefore thoracentesis along with diuretic therapy appear to be the treatments of choice at this time. CONOR on CKD Continue Aldactone 8, metolazone, IV Lasix and albumin. Continue to avoid nephrotoxins, monitor I's and O's and monitor BMP. Appreciate input from Nephrology however if no improvement in Renal indices by Wednesday, Nephrology to consider ultrafiltration by Dialysis Renal indices trending down with creatinine down to 2.98 CAD. Uncontrolled hypertension Continue Cardura 4mg daily and Coreg BID, Hydralazine 75mg Q8H. Benign paroxysmal postural vertigo Meclizine PRN Marijuana abuse. Cessation counseling provided. COPD. Continue Duo Nebs, Appreciate input from Pulmonary medicine C. difficile infection. s/p oral vancomycin x 14 days. Anemia. Likely anemia of chronic disease. Patient with CKD stage IV. Hemoglobin stable. Transfused 2 units PRBC Continue oral iron. Right leg wound. Podiatry consulted. Recommended calcium alginate with silver dressing every 3 days. Elevate legs at all times. Recommend follow-up with Dr. Read at the wound center after discharge. Acute Hypoxemic respiratory failure-Improving Improved s/p Thoracentesis s/p Solu Medrol and continue with Lasix IV Maintain oxygen saturation above 92% Problem Qualifiers (1) Hypothermia: Qualified Codes: T68.XXXD - Hypothermia, subsequent encounter (2) BPPV (benign paroxysmal positional vertigo): Qualified Codes: H81.10 - Benign paroxysmal vertigo, unspecified ear Je Morales MD Jan 16, 2018 09:58
[2018-01-16] MEDS: ACETAMINOPHEN/HYDROcodone 325 MG/5 MG TAB PO PRN (12:49)
--- NOTE | 2018-01-16 16:18 | PD.CARD.PN ---
Subjective Subjective Remarks No CP, mild SOB, feels same Objective Medications Current Medications Medications (Trade) Dose Ordered Sig/Marie Route Start Time Stop Time Status Last Admin (NS Flush) 2 ml UNSCH PRN IV FLUSH 12/28/17 10:45 (NS Flush) 2 ml BID IV FLUSH 12/28/17 21:00 01/16/18 09:21 (Zofran Inj) 4 mg Q6H PRN IVP 12/28/17 10:45 01/01/18 08:20 (Narcan Inj) 0.4 mg UNSCH PRN IV PUSH 12/28/17 10:45 (Milk Of Magnesia Liq) 30 ml Q12H PRN PO 12/28/17 10:45 (Senokot) 17.2 mg Q12H PRN PO 12/28/17 10:45 (Dulcolax Supp) 10 mg DAILY PRN RECTAL 12/28/17 10:45 (Lactulose Liq) 30 ml DAILY PRN PO 12/28/17 10:45 (D50w (Vial) Inj) 50 ml UNSCH PRN IV PUSH 12/28/17 10:45 01/01/18 08:38 (Glucagon Inj) 1 mg STAT PRN IM 12/28/17 10:45 (Aspirin Chew) 81 mg DAILY CHEW 12/29/17 09:00 01/16/18 09:21 (Lipitor) 40 mg HS PO 12/28/17 21:00 Future Hold 01/01/18 21:14 (Effient) 10 mg DAILY PO 12/29/17 09:00 01/16/18 09:21 (Heparin Inj) 5,000 units Q12HR SQ 12/28/17 21:00 01/16/18 09:22 ([place] 5-325 Mg) 1 tab Q6H PRN PO 12/28/17 20:45 01/16/18 12:49 Miscellaneous Information Patient in critical care unit? Ass... Q361D .XX 12/28/17 23:30 12/28/17 23:30 (Imdur) 60 mg DAILY@07 PO 12/31/17 07:00 01/16/18 06:11 (Catapres) 0.1 mg Q6H PRN PO 12/30/17 18:30 01/04/18 12:46 (Atrovent Neb) 0.5 mg Q6HR NEB PRN NEB 12/31/17 18:30 01/09/18 05:21 (Apresoline) 75 mg Q8HR PO 12/31/17 22:00 01/16/18 12:49 (Pill Splitter) 1 ea UNSCH PRN OTHER 12/31/17 18:45 (Procardia Xl) 30 mg Q12HR PO 01/01/18 21:00 01/16/18 09:21 (Aldactone) 12.5 mg DAILY PO 01/02/18 10:00 01/16/18 09:20 (NovoLOG SUPPLEMENTAL SCALE) 1 ACHS SLIDING SCALE SQ 01/02/18 12:00 01/16/18 12:51 (Levemir Inj) 5 units Q12HR SQ 01/04/18 09:00 01/16/18 09:24 (Coreg) 6.25 mg Q12HR PO 01/04/18 21:00 01/16/18 09:21 (Cardura) 2 mg DAILY PO 01/05/18 09:00 01/16/18 09:21 (Cardura) 2 mg DAILY PO 01/05/18 09:00 01/14/18 08:49 (Vancomycin 25 Mg/ml Liq) 125 mg QID PO 01/07/18 14:46 01/16/18 12:50 (Tylenol) 650 mg Q4H PRN PO 01/08/18 10:30 (Benadryl) 25 mg Q4H PRN PO 01/08/18 10:30 (Ferrous Sulfate) 325 mg BID PO 01/10/18 21:00 01/16/18 09:21 (Antivert) 25 mg Q8H PRN PO 01/10/18 18:15 (Lasix Inj) 40 mg Q12H IV PUSH 01/13/18 21:00 01/16/18 09:22 Vital Signs / I&O Vital Signs Date Time Temp Pulse Resp B/P (MAP) Pulse Ox O2 Delivery O2 Flow Rate FiO2 01/16/18 12:00 97.4 70 22 186/76 (112) 96 01/16/18 11:59 68 01/16/18 08:00 98.0 71 21 175/70 (105) 93 01/16/18 07:57 69 01/16/18 04:00 98.2 69 17 160/71 (100) 97 01/16/18 04:00 Nasal Cannula 2.00 01/16/18 04:00 69 01/16/18 00:00 Nasal Cannula 2.00 01/16/18 00:00 98.0 74 16 134/74 (94) 96 01/16/18 00:00 79 01/15/18 20:00 74 01/15/18 20:00 98.1 75 16 162/72 (102) 97 01/15/18 20:00 Nasal Cannula 2.00 I/O 01/15/18 01/15/18 01/15/18 01/16/18 01/16/18 01/16/18 07:00 15:00 23:00 07:00 15:00 23:00 Intake Total 600 ml 480 ml 760 ml Balance 600 ml 480 ml 760 ml Intake Oral 600 ml 480 ml 760 ml # Voids 2 4 3 # Bowel Movements 2 4 3 Physical Exam GENERAL: In NAD. SKIN: Warm and dry. HEAD: Normocephalic. EYES: No scleral icterus. No injection or drainage. NECK: Supple, trachea midline. No JVD or lymphadenopathy. CARDIOVASCULAR: Regular rate and rhythm without murmurs, gallops, or rubs. RESPIRATORY: Breath sounds equal bilaterally. No accessory muscle use. GASTROINTESTINAL: Abdomen soft, non-tender, nondistended. MUSCULOSKELETAL: No cyanosis, bilat LE edema Laboratory Laboratory Tests Test 01/16/18 06:17 Blood Urea Nitrogen 67 MG/DL Creatinine 2.98 MG/DL Random Glucose 176 MG/DL Calcium Level 8.4 MG/DL Sodium Level 141 MEQ/L Potassium Level 4.0 MEQ/L Chloride Level 105 MEQ/L Carbon Dioxide Level 28.0 MEQ/L Anion Gap 8 MEQ/L Estimat Glomerular Filtration Rate 16 ML/MIN Assessment and Plan Problem List: (1) Bradycardia ICD Codes: R00.1 - Bradycardia, unspecified Status: Acute (2) Altered mental status ICD Codes: R41.82 - Altered mental status, unspecified Status: Acute (3) Hypoglycemia ICD Codes: E16.2 - Hypoglycemia, unspecified Status: Acute (4) CHF (congestive heart failure) ICD Codes: I50.9 - Heart failure, unspecified (5) Renal insufficiency ICD Codes: N28.9 - Disorder of kidney and ureter, unspecified (6) DM (diabetes mellitus) ICD Codes: E11.9 - Type 2 diabetes mellitus without complications Status: Chronic (7) CAD (coronary artery disease) ICD Codes: I25.10 - Atherosclerotic heart disease of [place] coronary artery without angina pectoris Status: Chronic (8) Chronic kidney disease, stage 4 (severe) ICD Codes: N18.4 - Chronic kidney disease, stage 4 (severe) Status: Chronic (9) Bacteremia ICD Codes: R78.81 - Bacteremia (10) Clostridium difficile colitis ICD Codes: A04.7 - Enterocolitis due to Clostridium difficile Status: Resolved Assessment and Plan No new cardiac issues. Difficult situation due to recurrent pleural effusions and severe renal insufficiency. Continue current program including diuresis; waiting if renal fx improves as per nephrology. Thoracentesis as needed. She had drug eluting stent in Jun 2017; Effient and ASA cannot be stopped unless life threatening emergency occur for 1 year (high risk of stent thrombosis off meds). Increase activity. PT. youth services specialist to see for placement once ready for discharge, doubt she can go back to her current home environment. Problem Qualifiers (1) Altered mental status: Qualified Codes: R40.0 - Somnolence (2) DM (diabetes mellitus): Qualified Codes: E11.628 - Type 2 diabetes mellitus with other skin complications; Z79.4 - USP (current) use of insulin (3) CAD (coronary artery disease): Qualified Codes: I25.10 - Atherosclerotic heart disease of [place] coronary artery without angina pectoris Dunia Reddy MD Jan 16, 2018 16:18
--- NOTE | 2018-01-16 16:23 | HHI.NPPN ---
Subjective History of Present Illness This is a 67-year-old female known to me from before, has been following with me in the office with past medical history of hypertension, ischemic heart disease, congestive heart failure, diabetes mellitus, chronic obstructive pulmonary disease, chronic anemia, hyperlipidemia, chronic kidney disease, came to the hospital with low blood sugar. I was called to see the patient because of elevated BUN and creatinine. The patient has known history of chronic kidney disease. Her baseline creatinine is around 1.6-1.8. She came in with creatinine of 1.6 and it has gone up to 2.0 and 2.1. The patient was hypotensive on admission and also she has bradycardia and she was hypothermic. She is much better now, her sugar has gone up after given the D50 and she is currently sitting in the chair with nasal cannula. She has mild shortness of breath. According to her the swelling in the leg has been improving but she still has a lot of edema in the legs. She denies any headache or dizziness at present. No chest pain. She has mild cough which is mainly dry. No history of dysuria, hematuria, difficulty passing urine. Additional Remarks Mild SOB and chest discomfort Review of Systems Respiratory Lungs: SOB Cardiovascular Cardiac: Chest Pain Gastrointestinal GI Remarks No abdominal pain Objective Data Data Vital Signs Date Time Temp Pulse Resp B/P (MAP) Pulse Ox O2 Delivery O2 Flow Rate FiO2 01/16/18 12:00 97.4 70 22 186/76 (112) 96 01/16/18 11:59 68 01/16/18 08:00 98.0 71 21 175/70 (105) 93 01/16/18 07:57 69 01/16/18 04:00 98.2 69 17 160/71 (100) 97 01/16/18 04:00 Nasal Cannula 2.00 01/16/18 04:00 69 01/16/18 00:00 Nasal Cannula 2.00 01/16/18 00:00 98.0 74 16 134/74 (94) 96 01/16/18 00:00 79 01/15/18 20:00 74 01/15/18 20:00 98.1 75 16 162/72 (102) 97 01/15/18 20:00 Nasal Cannula 2.00 -: 01/16/18 0617 Physical Exam General Appearance: Well Nourished, No Acute Distress, Comfortable Eyes Eye Exam: Pupils Equal Pulmonary Resp Exam: Breath Sounds Equal, No Distress, Decreased Bases Cardiology CV Exam: Regular, Normal Sinus Rhythm Gastrointestinal/Abdomen GI Exam: Soft, Non-Tender, Bowel Sounds Present Genitourinary Exam: Flank Non-Tender Integumentary Skin Exam: Clear, Warm, Ulcer(s) Extremeties Extremities Exam: Pitting Edema Neurologic Neuro Exam: Alert, Awake Psychiatric Psych Exam: Appropriate Responses Assessment/Plan Discussed Condition With: Patient Assessment Summary: CKD Stage IV Problem List: (1) Renal insufficiency ICD Codes: N28.9 - Disorder of kidney and ureter, unspecified Plan: The patient has chronic kidney disease with proteinuria, most likely she has diabetic nephropathy On Vanco PO Good UOP Renal US noted Plan Continue to monitor I+O continue Lasix every 12 hours Avoid nephrotoxins Once the kidney function is stabilized and she can be started on RUSS inhibitor, if her renal function stabilize. Post Thoracentesis, 1200 cc removed from Rt. side very small subpulmonic pneumothorax following thoracentesis Slight decrease in creatinine at 2.98 on Lasix Patient seen and examined, agree with above. Patient need to be compliant with fluid intake. dr. Toro to follow (2) Leukocytosis ICD Codes: D72.829 - Elevated white blood cell count, unspecified Status: Acute (3) Hypertension ICD Codes: I10 - Essential (primary) hypertension Status: Chronic Plan: Blood pressure improving Continue the same (4) Sepsis ICD Codes: A41.9 - Sepsis, unspecified organism Status: Resolved (5) Anemia ICD Codes: D64.9 - Anemia, unspecified Status: Chronic (6) Stage 4 chronic kidney disease ICD Codes: N18.4 - Chronic kidney disease, stage 4 (severe) Problem Qualifiers (1) Hypertension: Qualified Codes: I10 - Essential (primary) hypertension Rigoberto Blue MD Jan 16, 2018 16:23
[2018-01-17] VITALS (10 sets, daily range): BP systolic 144–168; BP diastolic 67–82; PULSE 65–76; RESP 18–20; TEMP 97.5–98.1; O2SAT 93–95
[2018-01-17] MEDS: ACETAMINOPHEN/HYDROcodone 325 MG/5 MG TAB PO PRN (03:51)
[2018-01-17] MEDS: hydrALAZINE HCL 50 MG TAB PO SCH ×3 (05:16→22:14)
[2018-01-17] MEDS: ISOSORBIDE MONONITRATE 60 MG CR TAB (IMDUR) PO SCH (05:16)
[2018-01-17] MEDS: INSULIN ASPART SUPPLEMENTAL SCALE SQ SCH ×4 (08:00→22:16)
[2018-01-17] MEDS: DOXAZOSIN MESYLATE 2 MG TAB PO SCH ×2 (09:00→09:19)
[2018-01-17] MEDS: FUROSEMIDE 40 MG/4 ML VIAL IV PUSH SCH ×2 (09:00→22:15)
[2018-01-17] MEDS: INSULIN DETEMIR 100 UNITS/ML VIAL SQ SCH ×2 (09:16→22:16)
[2018-01-17] MEDS: CARVEDILOL 6.25 MG TAB PO SCH ×2 (09:17→22:14)
[2018-01-17] MEDS: NIFEdipine 30 MG SUSTAINED RELEASE TAB PO SCH ×2 (09:17→22:14)
[2018-01-17] MEDS: FERROUS SULFATE 325 MG (65 MG ELEMENTAL IRON) TAB PO SCH ×2 (09:18→22:15)
[2018-01-17] MEDS: SPIRONOLACTONE 25 MG TAB PO SCH (09:18)
[2018-01-17] MEDS: ASPIRIN 81 MG CHEW TAB CHEW SCH (09:18)
[2018-01-17] MEDS: PRASUGREL 10 MG TAB PO SCH (09:18)
[2018-01-17] MEDS: SODIUM CHLORIDE 0.9% FLUSH 10 ML FLUSH IV FLUSH SCH ×2 (09:21→22:15)
[2018-01-17 09:25] LABS: AUTOMATED NEUTROPHIL # 3.8 TH/MM3 (1.8-7.7); BASOPHIL % 0.8 % (0.0-2.0); EOSINOPHIL # 0.3 TH/MM3 (0-0.4); EOSINOPHIL % 4.4 % (0.0-4.0); HEMOGLOBIN 9.7 GM/DL (11.6-15.3); LYMPH % 20.4 % (9.0-44.0); LYMPHOCYTE # 1.2 TH/MM3 (1.0-4.8); MEAN CELL VOLUME 90.9 FL (80.0-100.0); MEAN CORPUSCULAR HEMOGLOBIN 30.5 PG (27.0-34.0); MEAN CORPUSCULAR HGB CONC 33.5 % (32.0-36.0); MEAN PLATELET VOLUME 8.2 FL (7.0-11.0); MONO % 7.3 % (0.0-8.0); MONOCYTE # 0.4 TH/MM3 (0-0.9); NEUT % 67.1 % (16.0-70.0); PLATELET COUNT 279 TH/MM3 (150-450); RED CELL DISTRIBUTION WIDTH 16.1 % (11.6-17.2); WHITE BLOOD COUNT 5.7 TH/MM3 (4.0-11.0)
--- NOTE | 2018-01-17 09:31 | HHI.PR ---
Subjective Remarks Follow-up sepsis/bilateral pleural effusion 01/12/18-patient seen and examined, complains of shortness of breath and requires 5 L nasal cannula oxygen. Plan for right thoracentesis today 01/13/18-patient seen and examined, reports significant improvement of shortness of breath after 1.2 L removed from the right lung yesterday. 01/14/18-patient seen and examined, states she had a rough night sleeping. Patient had 1.25L out removed from left lung yesterday complicated by very small subpulmonic pneumothorax. Discussed today with pulmonary medicine.. 01/15/18-patient seen and examined; SOB improved, Renal indices worsening. No acute event overnight 01/16/18-patient seen and examined, creatinine trending down and patient without any significant shortness of breath. States she would like to go home. 01/17/18-patient seen and examined, denies any chest pain, shortness of breath. Case discussed with cardiology. BMP pending this morning. Objective Vitals Vital Signs Date Time Temp Pulse Resp B/P (MAP) Pulse Ox O2 Delivery O2 Flow Rate FiO2 01/17/18 08:09 97.9 68 18 163/73 (103) 93 01/17/18 04:00 98.1 74 19 160/82 (108) 95 01/17/18 04:00 73 01/17/18 04:00 Nasal Cannula 2.00 01/17/18 00:00 98.0 76 19 168/73 (104) 94 01/17/18 00:00 Nasal Cannula 2.00 01/16/18 20:00 72 01/16/18 20:00 97.5 72 20 164/72 (102) 94 01/16/18 20:00 Nasal Cannula 2.00 01/16/18 16:00 97.9 70 20 133/63 (86) 96 01/16/18 16:00 Nasal Cannula 2.00 01/16/18 15:54 69 01/16/18 12:00 Nasal Cannula 2.00 01/16/18 12:00 97.4 70 22 186/76 (112) 96 01/16/18 11:59 68 I/O 01/16/18 01/16/18 01/16/18 01/17/18 01/17/18 01/17/18 07:00 15:00 23:00 07:00 15:00 23:00 Intake Total 760 ml 480 ml 200 ml Output Total 700 ml Balance 760 ml 480 ml -500 ml Intake Oral 760 ml 480 ml 200 ml Output Urine Total 700 ml # Voids 3 4 # Bowel Movements 3 4 2 Result Diagram: 01/17/18 0846 01/16/18 0617 Imaging Last Impressions Thoracentesis Ultrasound 01/13/18 0000 Signed Impressions: Service Date/Time: December 15:02 - CONCLUSION: Uncomplicated ultrasound guided thoracentesis. Preet Chavez MD Chest X-Ray 01/13/18 0000 Signed Impressions: Service Date/Time: December 15:41 - CONCLUSION: 1. Very small subpulmonic pneumothorax following thoracentesis with interval resolution of left-sided pleural effusion. Eric Pham MD Chest Ultrasound 01/11/18 0000 Signed Impressions: Service Date/Time: Thursday, January 11, 2018 14:01 - CONCLUSION: Moderate size right pleural effusion. This is simple in appearance. Dewayne Donaldson Jr., MD Renal Ultrasound 01/02/18 0000 Signed Impressions: Service Date/Time: Tuesday, January 02, 2018 14:33 - CONCLUSION: Left pleural effusion with sinusitis and possible fatty liver. K. Mahad King MD Head CT 12/28/17 0807 Signed Impressions: Service Date/Time: Thursday, December 28, 2017 09:04 - CONCLUSION: No acute disease. No significant change has occurred. Héctor Carmona MD Abdomen/Pelvis CT 12/28/17 0000 Signed Impressions: Service Date/Time: Thursday, December 28, 2017 09:07 - CONCLUSION: Stable abdomen. No evidence of free air and no evidence of obstruction. Large bilateral pleural effusions with ascites and anasarca. Diverticuli uncomplicated of the colon with diminished mural thickening of the colon suggesting improving colitis. Lim catheter in place in the urinary bladder. Héctor Carmona MD Objective Remarks GENERAL: NAD SKIN: Warm and dry. HEAD: Normocephalic. EYES: No scleral icterus. No injection or drainage. NECK: Supple, trachea midline. No JVD or lymphadenopathy. CARDIOVASCULAR: Regular rate and rhythm without murmurs, gallops, or rubs. RESPIRATORY: Breath sounds equal bilaterally. No accessory muscle use. GASTROINTESTINAL: Abdomen soft, non-tender, nondistended. MUSCULOSKELETAL: No cyanosis, or edema. BACK: Nontender without obvious deformity. No CVA tenderness. Procedures none A/P Problem List: (1) Sepsis ICD Code: A41.9 - Sepsis, unspecified organism Status: Resolved (2) Hypothermia ICD Code: T68.XXXA - Hypothermia, initial encounter Status: Resolved (3) Hypoglycemia ICD Code: E16.2 - Hypoglycemia, unspecified Status: Acute (4) IDDM (insulin dependent diabetes mellitus) ICD Code: E11.9 - Type 2 diabetes mellitus without complications; Z79.4 - USP (current) use of insulin Status: Chronic (5) Acute on chronic diastolic heart failure ICD Code: I50.33 - Acute on chronic diastolic (congestive) heart failure Status: Resolved (6) Severe protein-calorie malnutrition ICD Code: E43 - Unspecified severe protein-calorie malnutrition Status: Chronic (7) Bilateral pleural effusion ICD Code: J90 - Pleural effusion, not elsewhere classified Status: Acute (8) BPPV (benign paroxysmal positional vertigo) ICD Code: H81.10 - Benign paroxysmal vertigo, unspecified ear (9) CAD (coronary artery disease) ICD Code: I25.10 - Atherosclerotic heart disease of [place] coronary artery without angina pectoris Status: Chronic (10) HTN (hypertension) ICD Code: I10 - Essential (primary) hypertension Status: Chronic (11) COPD (chronic obstructive pulmonary disease) ICD Code: J44.9 - Chronic obstructive pulmonary disease, unspecified (12) Marijuana abuse ICD Code: F12.10 - Cannabis abuse, uncomplicated (13) Clostridium difficile colitis ICD Code: A04.7 - Enterocolitis due to Clostridium difficile Status: Resolved (14) Anemia ICD Code: D64.9 - Anemia, unspecified Assessment and Plan 67-year-old female with sepsis-Resolved Bacteremia with gram-positive bacteria. Staph epi. s/p treatment with Daptomycin. Hypothermia-Resolved Elevated TSH on admission Cortisol level and is suspected range. The patient was placed on IV hydrocortisone. TSH elevation likely elevated due to stress and acute illness. Severe malnutrition. Encourage with Glucerna supplements. DM hypoglycemia on admission-Resolved Continue SSI and insulin Levemir 5units Q12H. Acute diastolic CHF exacerbation Currently on IV diuretics 40mg Q12H, continue Aldactone, Imdur, Coreg Strict I's and O's Bilateral pleural effusions Cardiology cannot clear patient to hold Effient due to recent drug-eluting stent. Expect these are secondary to CHF. 01/08 sp US guided thoracentesis with drainage of 800 cc of pleural fluid which looks noninfectious. s/p Right sided ultrasound guided thoracentesis 01/12/18-Cytology negative s/p US guided thoracentesis of Left Lung 01/13/18 This was discussed yesterday with interventional radiology regarding future care plan as pleural effusion is concerned. However, patient with a history of CAD, cardiomyopathy with stent placement and currently on Effient, Pleural cath placement is contraindicated. Therefore thoracentesis along with diuretic therapy appear to be the treatments of choice at this time. CONOR on CKD Continue Aldactone 8, metolazone, IV Lasix and albumin. Continue to avoid nephrotoxins, monitor I's and O's and monitor BMP. Appreciate input from Nephrology however if no improvement in Renal indices by Wednesday, Nephrology to consider ultrafiltration by Dialysis Renal indices trending down with creatinine down to 2.98. BMP pending this a.m. CAD. Uncontrolled hypertension Continue Cardura 4mg daily and Coreg BID, Hydralazine 75mg Q8H. Benign paroxysmal postural vertigo Meclizine PRN Marijuana abuse. Cessation counseling provided. COPD. Continue Duo Nebs, Appreciate input from Pulmonary medicine C. difficile infection. s/p oral vancomycin x 14 days. Anemia. Likely anemia of chronic disease. Patient with CKD stage IV. Hemoglobin stable. Transfused 2 units PRBC Continue oral iron. Right leg wound. Podiatry consulted. Recommended calcium alginate with silver dressing every 3 days. Elevate legs at all times. Recommend follow-up with Dr. Read at the wound center after discharge. Acute Hypoxemic respiratory failure-Improving Improved s/p Thoracentesis s/p Solu Medrol and continue with Lasix IV Maintain oxygen saturation above 92% Problem Qualifiers (1) Hypothermia: Qualified Codes: T68.XXXD - Hypothermia, subsequent encounter (2) BPPV (benign paroxysmal positional vertigo): Qualified Codes: H81.10 - Benign paroxysmal vertigo, unspecified ear Je Morales MD Jan 17, 2018 09:31
[2018-01-17 09:53] LABS: BICARBONATE 28.4 MEQ/L (21.0-32.0); CALCIUM 8.5 MG/DL (8.5-10.1); CREATININE 3.08 MG/DL (0.50-1.00)
--- NOTE | 2018-01-17 10:38 | HHI.NPPN ---
Subjective History of Present Illness This is a 67-year-old female known to me from before, has been following with me in the office with past medical history of hypertension, ischemic heart disease, congestive heart failure, diabetes mellitus, chronic obstructive pulmonary disease, chronic anemia, hyperlipidemia, chronic kidney disease, came to the hospital with low blood sugar. I was called to see the patient because of elevated BUN and creatinine. The patient has known history of chronic kidney disease. Her baseline creatinine is around 1.6-1.8. She came in with creatinine of 1.6 and it has gone up to 2.0 and 2.1. The patient was hypotensive on admission and also she has bradycardia and she was hypothermic. She is much better now, her sugar has gone up after given the D50 and she is currently sitting in the chair with nasal cannula. She has mild shortness of breath. According to her the swelling in the leg has been improving but she still has a lot of edema in the legs. She denies any headache or dizziness at present. No chest pain. She has mild cough which is mainly dry. No history of dysuria, hematuria, difficulty passing urine. Additional Remarks Denies any SOB, no edema. Creatinine slightly more elevated at 3.08 (Jessica Clemons) Review of Systems Respiratory Lungs: SOB (Jessica Clemons) Cardiovascular Cardiac: Chest Pain (Jessica Clemons) Gastrointestinal GI Remarks No abdominal pain (Jessica lCemons) Objective Data Data Vital Signs Date Time Temp Pulse Resp B/P (MAP) Pulse Ox O2 Delivery O2 Flow Rate FiO2 01/17/18 08:09 97.9 68 18 163/73 (103) 93 01/17/18 04:00 98.1 74 19 160/82 (108) 95 01/17/18 04:00 73 01/17/18 04:00 Nasal Cannula 2.00 01/17/18 00:00 98.0 76 19 168/73 (104) 94 01/17/18 00:00 Nasal Cannula 2.00 01/16/18 20:00 72 01/16/18 20:00 97.5 72 20 164/72 (102) 94 01/16/18 20:00 Nasal Cannula 2.00 01/16/18 16:00 97.9 70 20 133/63 (86) 96 2/18/18 16:00 Nasal Cannula 2.00 01/16/18 15:54 69 01/16/18 12:00 Nasal Cannula 2.00 01/16/18 12:00 97.4 70 22 186/76 (112) 96 01/16/18 11:59 68 (Jessica Clemons) -: 01/17/18 0846 01/17/18 0846 Physical Exam General Appearance: Well Nourished, No Acute Distress, Comfortable (Jessica Clemons) Eyes Eye Exam: Pupils Equal (Jessica Clemons) Pulmonary Resp Exam: Breath Sounds Equal, No Distress, Decreased Bases (Jessica Clemons) Cardiology CV Exam: Regular, Normal Sinus Rhythm (Jessica Clemons) Gastrointestinal/Abdomen GI Exam: Soft, Non-Tender, Bowel Sounds Present (Jessica Clemons) Genitourinary Exam: Flank Non-Tender (Jessica Clemons) Integumentary Skin Exam: Clear, Warm, Ulcer(s) (Jessica Clemons) Extremeties Extremities Exam: Pitting Edema (Jessica Clemons) Neurologic Neuro Exam: Alert, Awake (Jessica Clemons) Psychiatric Psych Exam: Appropriate Responses (Jessica Clemons) Assessment/Plan Discussed Condition With: Patient Assessment Summary: CKD Stage IV Problem List: (1) Renal insufficiency ICD Codes: N28.9 - Disorder of kidney and ureter, unspecified Plan: The patient has chronic kidney disease with proteinuria, most likely she has diabetic nephropathy On Vanco PO Good UOP Renal US noted Plan Continue to monitor I+O continue Lasix every 12 hours Avoid nephrotoxins Once the kidney function is stabilized and she can be started on RUSS inhibitor, if her renal function stabilize. Potassium and calcium WNL Slight increase in creatinine at 3.08 from 2.98 (2) Leukocytosis ICD Codes: D72.829 - Elevated white blood cell count, unspecified Status: Acute (3) Hypertension ICD Codes: I10 - Essential (primary) hypertension Status: Chronic Plan: Blood pressure improving Continue the same (4) Sepsis ICD Codes: A41.9 - Sepsis, unspecified organism Status: Resolved (5) Anemia ICD Codes: D64.9 - Anemia, unspecified Status: Chronic (6) Stage 4 chronic kidney disease ICD Codes: N18.4 - Chronic kidney disease, stage 4 (severe) (Jessica Clemons) Problem List: (1) Renal insufficiency ICD Codes: N28.9 - Disorder of kidney and ureter, unspecified Plan: The patient has chronic kidney disease with proteinuria, most likely she has diabetic nephropathy On Vanco PO Good UOP Renal US noted Plan Continue to monitor I+O continue Lasix every 12 hours Avoid nephrotoxins Once the kidney function is stabilized and she can be started on RUSS inhibitor, if her renal function stabilize. Potassium and calcium WNL Slight increase in creatinine at 3.08 from 2.98. Patient seen and examined, agree with above. Continue diuretics, expecting some improvement in the renal function. Told to restrict oral fluid intake. (2) Leukocytosis ICD Codes: D72.829 - Elevated white blood cell count, unspecified Status: Acute (3) Hypertension ICD Codes: I10 - Essential (primary) hypertension Status: Chronic Plan: Blood pressure improving Continue the same (4) Sepsis ICD Codes: A41.9 - Sepsis, unspecified organism Status: Resolved (5) Anemia ICD Codes: D64.9 - Anemia, unspecified Status: Chronic (6) Stage 4 chronic kidney disease ICD Codes: N18.4 - Chronic kidney disease, stage 4 (severe) (Flavio Toro MD ) Problem Qualifiers (1) Hypertension: Qualified Codes: I10 - Essential (primary) hypertension Jessica Clemons Jan 17, 2018 10:38 Flavio Toro MD Jan 17, 2018 20:51
[2018-01-17] MEDS: VANCOMYCIN 25 MG/ML SUSP 100 ML BOTTLE PO SCH ×4 (11:29→22:14)
--- NOTE | 2018-01-17 14:55 | PD.CARD.PN ---
Subjective Subjective Remarks No CP or SOB, feels better Objective Medications Current Medications Medications (Trade) Dose Ordered Sig/Marie Route Start Time Stop Time Status Last Admin (NS Flush) 2 ml UNSCH PRN IV FLUSH 12/28/17 10:45 (NS Flush) 2 ml BID IV FLUSH 12/28/17 21:00 01/17/18 09:21 (Zofran Inj) 4 mg Q6H PRN IVP 12/28/17 10:45 01/01/18 08:20 (Narcan Inj) 0.4 mg UNSCH PRN IV PUSH 12/28/17 10:45 (Milk Of Magnesia Liq) 30 ml Q12H PRN PO 12/28/17 10:45 (Senokot) 17.2 mg Q12H PRN PO 12/28/17 10:45 (Dulcolax Supp) 10 mg DAILY PRN RECTAL 12/28/17 10:45 (Lactulose Liq) 30 ml DAILY PRN PO 12/28/17 10:45 (D50w (Vial) Inj) 50 ml UNSCH PRN IV PUSH 12/28/17 10:45 01/01/18 08:38 (Glucagon Inj) 1 mg STAT PRN IM 12/28/17 10:45 (Aspirin Chew) 81 mg DAILY CHEW 12/29/17 09:00 01/17/18 09:18 (Lipitor) 40 mg HS PO 12/28/17 21:00 Future Hold 01/01/18 21:14 (Effient) 10 mg DAILY PO 12/29/17 09:00 01/17/18 09:18 (Heparin Inj) 5,000 units Q12HR SQ 12/28/17 21:00 Future Hold 01/16/18 09:22 (Paradis 5-325 Mg) 1 tab Q6H PRN PO 12/28/17 20:45 01/17/18 03:51 Miscellaneous Information Patient in critical care unit? Ass... Q361D .XX 12/28/17 23:30 12/28/17 23:30 (Imdur) 60 mg DAILY@07 PO 12/31/17 07:00 01/17/18 05:16 (Catapres) 0.1 mg Q6H PRN PO 12/30/17 18:30 2/6/18 12:46 (Atrovent Neb) 0.5 mg Q6HR NEB PRN NEB 12/31/17 18:30 01/09/18 05:21 (Apresoline) 75 mg Q8HR PO 12/31/17 22:00 01/17/18 13:08 (Pill Splitter) 1 ea UNSCH PRN OTHER 12/31/17 18:45 (Procardia Xl) 30 mg Q12HR PO 01/01/18 21:00 01/17/18 09:17 (Aldactone) 12.5 mg DAILY PO 01/02/18 10:00 01/17/18 09:18 (NovoLOG SUPPLEMENTAL SCALE) 1 ACHS SLIDING SCALE SQ 01/02/18 12:00 01/17/18 12:00 (Levemir Inj) 5 units Q12HR SQ 01/04/18 09:00 01/17/18 09:16 (Coreg) 6.25 mg Q12HR PO 01/04/18 21:00 01/17/18 09:17 (Cardura) 2 mg DAILY PO 01/05/18 09:00 01/17/18 09:19 (Cardura) 2 mg DAILY PO 01/05/18 09:00 01/14/18 08:49 (Vancomycin 25 Mg/ml Liq) 125 mg QID PO 01/07/18 14:46 01/17/18 13:10 (Tylenol) 650 mg Q4H PRN PO 01/08/18 10:30 (Benadryl) 25 mg Q4H PRN PO 01/08/18 10:30 (Ferrous Sulfate) 325 mg BID PO 01/10/18 21:00 01/17/18 09:18 (Antivert) 25 mg Q8H PRN PO 01/10/18 18:15 (Lasix Inj) 40 mg Q12H IV PUSH 01/13/18 21:00 01/17/18 09:00 Vital Signs / I&O Vital Signs Date Time Temp Pulse Resp B/P (MAP) Pulse Ox O2 Delivery O2 Flow Rate FiO2 01/17/18 12:09 97.7 67 18 148/67 (94) 94 01/17/18 08:09 97.9 68 18 163/73 (103) 93 01/17/18 07:15 Nasal Cannula 3.00 01/17/18 04:00 98.1 74 19 160/82 (108) 95 01/17/18 04:00 73 01/17/18 04:00 Nasal Cannula 2.00 01/17/18 00:00 98.0 76 19 168/73 (104) 94 01/17/18 00:00 Nasal Cannula 2.00 01/16/18 20:00 72 01/16/18 20:00 97.5 72 20 164/72 (102) 94 01/16/18 20:00 Nasal Cannula 2.00 01/16/18 16:00 97.9 70 20 133/63 (86) 96 01/16/18 16:00 Nasal Cannula 2.00 01/16/18 15:54 69 I/O 01/16/18 01/16/18 01/16/18 01/17/18 01/17/18 01/17/18 06:59 14:59 22:59 06:59 14:59 22:59 Intake Total 760 ml 480 ml 200 ml Output Total 700 ml Balance 760 ml 480 ml -500 ml Intake Oral 760 ml 480 ml 200 ml Output Urine Total 700 ml # Voids 3 4 # Bowel Movements 3 4 2 Physical Exam GENERAL: In NAD. SKIN: Warm and dry. HEAD: Normocephalic. EYES: No scleral icterus. No injection or drainage. NECK: Supple, trachea midline. No JVD or lymphadenopathy. CARDIOVASCULAR: Regular rate and rhythm without murmurs, gallops, or rubs. RESPIRATORY: Breath sounds equal bilaterally. No accessory muscle use. GASTROINTESTINAL: Abdomen soft, non-tender, nondistended. MUSCULOSKELETAL: No cyanosis, mild bilat LE edema Laboratory Laboratory Tests Test 01/17/18 08:46 White Blood Count 5.7 TH/MM3 Red Blood Count 3.20 MIL/MM3 Hemoglobin 9.7 GM/DL Hematocrit 29.0 % Mean Corpuscular Volume 90.9 FL Mean Corpuscular Hemoglobin 30.5 PG Mean Corpuscular Hemoglobin Concent 33.5 % Red Cell Distribution Width 16.1 % Platelet Count 279 TH/MM3 Mean Platelet Volume 8.2 FL Neutrophils (%) (Auto) 67.1 % Lymphocytes (%) (Auto) 20.4 % Monocytes (%) (Auto) 7.3 % Eosinophils (%) (Auto) 4.4 % Basophils (%) (Auto) 0.8 % Neutrophils # (Auto) 3.8 TH/MM3 Lymphocytes # (Auto) 1.2 TH/MM3 Monocytes # (Auto) 0.4 TH/MM3 Eosinophils # (Auto) 0.3 TH/MM3 Basophils # (Auto) 0.0 TH/MM3 CBC Comment DIFF FINAL Differential Comment Blood Urea Nitrogen 68 MG/DL Creatinine 3.08 MG/DL Random Glucose 208 MG/DL Calcium Level 8.5 MG/DL Sodium Level 139 MEQ/L Potassium Level 4.0 MEQ/L Chloride Level 104 MEQ/L Carbon Dioxide Level 28.4 MEQ/L Anion Gap 7 MEQ/L Estimat Glomerular Filtration Rate 15 ML/MIN Assessment and Plan Problem List: (1) Bradycardia ICD Codes: R00.1 - Bradycardia, unspecified Status: Acute (2) Altered mental status ICD Codes: R41.82 - Altered mental status, unspecified Status: Acute (3) Hypoglycemia ICD Codes: E16.2 - Hypoglycemia, unspecified Status: Acute (4) CHF (congestive heart failure) ICD Codes: I50.9 - Heart failure, unspecified (5) Renal insufficiency ICD Codes: N28.9 - Disorder of kidney and ureter, unspecified (6) DM (diabetes mellitus) ICD Codes: E11.9 - Type 2 diabetes mellitus without complications Status: Chronic (7) CAD (coronary artery disease) ICD Codes: I25.10 - Atherosclerotic heart disease of [place] coronary artery without angina pectoris Status: Chronic (8) Chronic kidney disease, stage 4 (severe) ICD Codes: N18.4 - Chronic kidney disease, stage 4 (severe) Status: Chronic (9) Bacteremia ICD Codes: R78.81 - Bacteremia (10) Clostridium difficile colitis ICD Codes: A04.7 - Enterocolitis due to Clostridium difficile Status: Resolved Assessment and Plan No new cardiac issues. Difficult situation due to recurrent pleural effusions and severe renal insufficiency. Continue current program including diuresis; some improvement of renal fx. She had drug eluting stent in Jun 2017; Effient and ASA cannot be stopped unless life threatening emergency occur for 1 year ( high risk of stent thrombosis off meds). Increase activity. PT. social services director to see for placement once ready for discharge, doubt she can go back to her current home environment. Home once pt stable with significant renal fx improvement. 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
--- NOTE | 2018-01-17 19:14 | HHI.PR ---
Subjective Remarks 67 YOWF with CAD, s/p stent, COPD,Pl eff US chest bilat pl eff, R.>L On 3-4 LNC Feels much better SOB improved Objective Vital Signs Vital Signs Date Time Temp Pulse Resp B/P (MAP) Pulse Ox O2 Delivery O2 Flow Rate FiO2 01/17/18 16:20 97.7 65 18 144/67 (92) 93 01/17/18 12:09 97.7 67 18 148/67 (94) 94 01/17/18 08:09 97.9 68 18 163/73 (103) 93 01/17/18 07:15 Nasal Cannula 3.00 01/17/18 04:00 98.1 74 19 160/82 (108) 95 01/17/18 04:00 73 01/17/18 04:00 Nasal Cannula 2.00 01/17/18 00:00 98.0 76 19 168/73 (104) 94 01/17/18 00:00 Nasal Cannula 2.00 01/16/18 20:00 72 01/16/18 20:00 97.5 72 20 164/72 (102) 94 01/16/18 20:00 Nasal Cannula 2.00 I/O 01/16/18 01/16/18 01/16/18 01/17/18 01/17/18 01/17/18 07:00 15:00 23:00 07:00 15:00 23:00 Intake Total 760 ml 480 ml 200 ml 600 ml Output Total 700 ml Balance 760 ml 480 ml -500 ml 600 ml Intake Oral 760 ml 480 ml 200 ml 600 ml Output Urine Total 700 ml # Voids 3 4 3 # Bowel Movements 3 4 2 2 Result Diagram: 01/17/18 0846 01/17/18 0846 Objective Remarks GENERAL: MBMN WF,NAD SKIN: Warm and dry. HEAD: Normocephalic. EYES: No scleral icterus. No injection or drainage. NECK: Supple, trachea midline. No JVD or lymphadenopathy. CARDIOVASCULAR: Regular rate and rhythm without murmurs, gallops, or rubs. RESPIRATORY: Breath sounds equal bilaterally. No accessory muscle use. GASTROINTESTINAL: Abdomen soft, non-tender, nondistended. MUSCULOSKELETAL: No cyanosis, or edema. BACK: Nontender without obvious deformity. No CVA tenderness. A/P Assessment and Plan Pl eff, s/p TC CHF CAD, s/p stent COPD PLAN: Diurease Aerosol nebs Supplement 02 DW pt Pt has recurrent pl ef, requiring TC If chest plurex are placed, high risk of infection Aaron Blankenship MD Jan 17, 2018 19:14
[2018-01-18] VITALS (15 sets, daily range): BP systolic 148–180; BP diastolic 66–80; PULSE 65–72; RESP 18–20; TEMP 97.8–98.7; O2SAT 91–96
[2018-01-18] MEDS: RESP: IPRATROPIUM 0.5 MG/2.5 ML NEB NEB PRN ×2 (03:22→07:39)
[2018-01-18] MEDS: ACETAMINOPHEN/HYDROcodone 325 MG/5 MG TAB PO PRN (04:04)
[2018-01-18] MEDS: cloNIDine HCL 0.1 MG TAB PO PRN (04:04)
[2018-01-18] MEDS: ISOSORBIDE MONONITRATE 60 MG CR TAB (IMDUR) PO SCH (06:05)
[2018-01-18] MEDS: hydrALAZINE HCL 50 MG TAB PO SCH ×3 (06:05→21:56)
[2018-01-18] MEDS: VANCOMYCIN 25 MG/ML SUSP 100 ML BOTTLE PO SCH ×4 (09:00→21:59)
[2018-01-18] MEDS: DOXAZOSIN MESYLATE 2 MG TAB PO SCH ×2 (09:00→09:41)
[2018-01-18] MEDS: INSULIN ASPART SUPPLEMENTAL SCALE SQ SCH ×4 (09:33→21:57)
[2018-01-18] MEDS: CARVEDILOL 6.25 MG TAB PO SCH ×2 (09:33→21:58)
[2018-01-18] MEDS: FERROUS SULFATE 325 MG (65 MG ELEMENTAL IRON) TAB PO SCH ×2 (09:34→21:58)
[2018-01-18] MEDS: FUROSEMIDE 40 MG/4 ML VIAL IV PUSH SCH ×2 (09:34→21:59)
[2018-01-18] MEDS: SPIRONOLACTONE 25 MG TAB PO SCH (09:34)
[2018-01-18] MEDS: NIFEdipine 30 MG SUSTAINED RELEASE TAB PO SCH ×2 (09:34→21:58)
[2018-01-18] MEDS: PRASUGREL 10 MG TAB PO SCH (09:34)
[2018-01-18] MEDS: ASPIRIN 81 MG CHEW TAB CHEW SCH (09:36)
[2018-01-18] MEDS: SODIUM CHLORIDE 0.9% FLUSH 10 ML FLUSH IV FLUSH SCH ×2 (09:39→21:59)
[2018-01-18] MEDS: INSULIN DETEMIR 100 UNITS/ML VIAL SQ SCH ×2 (09:47→21:57)
--- NOTE | 2018-01-18 10:05 | HHI.PR ---
Subjective Remarks Follow-up sepsis/bilateral pleural effusion 01/12/18-patient seen and examined, complains of shortness of breath and requires 5 L nasal cannula oxygen. Plan for right thoracentesis today 01/13/18-patient seen and examined, reports significant improvement of shortness of breath after 1.2 L removed from the right lung yesterday. 01/14/18-patient seen and examined, states she had a rough night sleeping. Patient had 1.25L out removed from left lung yesterday complicated by very small subpulmonic pneumothorax. Discussed today with pulmonary medicine.. 01/15/18-patient seen and examined; SOB improved, Renal indices worsening. No acute event overnight 01/16/18-patient seen and examined, creatinine trending down and patient without any significant shortness of breath. States she would like to go home. 01/17/18-patient seen and examined, denies any chest pain, shortness of breath. Case discussed with cardiology. BMP pending this morning. 01/18/18-patient seen and examined,BP stable and no SOB or CP; states she is ready to go home Objective Vitals Vital Signs Date Time Temp Pulse Resp B/P (MAP) Pulse Ox O2 Delivery O2 Flow Rate FiO2 01/18/18 08:00 98.5 66 20 155/70 (98) 91 01/18/18 07:39 92 Nasal Cannula 3.00 01/18/18 05:30 148/80 (102) 01/18/18 04:00 98.4 71 20 179/75 (109) 94 01/18/18 04:00 Nasal Cannula 3.00 Humidified 01/18/18 03:47 72 01/18/18 03:23 96 Nasal Cannula 3.00 01/18/18 00:16 68 01/18/18 00:00 97.9 72 18 180/78 (112) 96 01/18/18 00:00 Nasal Cannula 3.00 Humidified 01/17/18 20:25 68 01/17/18 20:00 97.5 70 20 155/71 (99) 94 01/17/18 20:00 Nasal Cannula 3.00 Humidified 01/17/18 16:20 97.7 65 18 144/67 (92) 93 01/17/18 16:00 67 01/17/18 12:09 97.7 67 18 148/67 (94) 94 01/17/18 12:00 65 I/O 01/17/18 01/17/18 01/17/18 01/18/18 01/18/18 01/18/18 07:00 15:00 23:00 07:00 15:00 23:00 Intake Total 200 ml 600 ml 510 ml Output Total 700 ml Balance -500 ml 600 ml 510 ml Intake Oral 200 ml 600 ml 510 ml Output Urine Total 700 ml # Voids 3 4 # Bowel Movements 2 2 2 Result Diagram: 01/17/18 0846 01/17/18 0846 Objective Remarks GENERAL: NAD SKIN: Warm and dry. HEAD: Normocephalic. EYES: No scleral icterus. No injection or drainage. NECK: Supple, trachea midline. No JVD or lymphadenopathy. CARDIOVASCULAR: Regular rate and rhythm without murmurs, gallops, or rubs. RESPIRATORY: Breath sounds equal bilaterally. No accessory muscle use. GASTROINTESTINAL: Abdomen soft, non-tender, nondistended. MUSCULOSKELETAL: No cyanosis, or edema. BACK: Nontender without obvious deformity. No CVA tenderness. 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 Status: Chronic (5) Acute on chronic diastolic heart failure ICD Code: I50.33 - Acute on chronic diastolic (congestive) heart failure Status: Resolved (6) Severe protein-calorie malnutrition ICD Code: E43 - Unspecified severe protein-calorie malnutrition Status: Chronic (7) Bilateral pleural effusion ICD Code: J90 - Pleural effusion, not elsewhere classified Status: Acute (8) BPPV (benign paroxysmal positional vertigo) ICD Code: H81.10 - Benign paroxysmal vertigo, unspecified ear (9) CAD (coronary artery disease) ICD Code: I25.10 - Atherosclerotic heart disease of [place] coronary artery without angina pectoris Status: Chronic (10) HTN (hypertension) ICD Code: I10 - Essential (primary) hypertension Status: Chronic (11) COPD (chronic obstructive pulmonary disease) ICD Code: J44.9 - Chronic obstructive pulmonary disease, unspecified (12) Marijuana abuse ICD Code: F12.10 - Cannabis abuse, uncomplicated (13) Clostridium difficile colitis ICD Code: A04.7 - Enterocolitis due to Clostridium difficile Status: Resolved (14) Anemia ICD Code: D64.9 - Anemia, unspecified Assessment and Plan 67-year-old female with sepsis-Resolved Bacteremia with gram-positive bacteria. Staph epi. s/p treatment with Daptomycin. Hypothermia-Resolved Elevated TSH on admission Cortisol level and is suspected range. s/p IV hydrocortisone. TSH elevation likely elevated due to stress and acute illness. Severe malnutrition. Encourage with Glucerna supplements. DM hypoglycemia on admission-Resolved Continue SSI and insulin Levemir 5units Q12H. Acute diastolic CHF exacerbation Currently on IV diuretics 40mg Q12H, continue Aldactone, Imdur, Coreg Strict I's and O's Bilateral pleural effusions Cardiology cannot clear patient to hold Effient due to recent drug-eluting stent. Expect these are secondary to CHF. 01/08 sp US guided thoracentesis with drainage of 800 cc of pleural fluid which looks noninfectious. s/p Right sided ultrasound guided thoracentesis 01/12/18-Cytology negative s/p US guided thoracentesis of Left Lung 01/13/18 This was discussed yesterday with interventional radiology regarding future care plan as pleural effusion is concerned. However, patient with a history of CAD, cardiomyopathy with stent placement and currently on Effient, Pleural cath placement is contraindicated. Therefore thoracentesis along with diuretic therapy appear to be the treatments of choice at this time. CONOR on CKD Continue Aldactone 8, metolazone, IV Lasix and albumin. Continue to avoid nephrotoxins, monitor I's and O's and monitor BMP. Appreciate input from Nephrology Renal indices slightly up yesterday, BMP pending this a.m. CAD. controlled hypertension Continue Cardura 4mg daily and Coreg BID, Hydralazine 75mg Q8H. Benign paroxysmal postural vertigo Meclizine PRN Marijuana abuse. Cessation counseling provided. COPD. Continue Duo Nebs, Appreciate input from Pulmonary medicine C. difficile infection. s/p oral vancomycin x 14 days. Anemia. Likely anemia of chronic disease. Patient with CKD stage IV. Hemoglobin stable. Transfused 2 units PRBC Continue oral iron. Right leg wound. Podiatry consulted. Recommended calcium alginate with silver dressing every 3 days. Elevate legs at all times. Recommend follow-up with Dr. Read at the wound center after discharge. Acute Hypoxemic respiratory failure-Improved Improved s/p Thoracentesis s/p Solu Medrol and continue with Lasix IV Maintain oxygen saturation above 92% Problem Qualifiers (1) Hypothermia: Qualified Codes: T68.XXXD - Hypothermia, subsequent encounter (2) BPPV (benign paroxysmal positional vertigo): Qualified Codes: H81.10 - Benign paroxysmal vertigo, unspecified ear Je Morales MD Jan 18, 2018 10:05
[2018-01-18 14:17] LABS: BICARBONATE 28.2 MEQ/L (21.0-32.0); CALCIUM 8.6 MG/DL (8.5-10.1); CREATININE 3.08 MG/DL (0.50-1.00)
--- NOTE | 2018-01-18 15:16 | HHI.NPPN ---
Subjective History of Present Illness This is a 67-year-old female known to me from before, has been following with me in the office with past medical history of hypertension, ischemic heart disease, congestive heart failure, diabetes mellitus, chronic obstructive pulmonary disease, chronic anemia, hyperlipidemia, chronic kidney disease, came to the hospital with low blood sugar. I was called to see the patient because of elevated BUN and creatinine. The patient has known history of chronic kidney disease. Her baseline creatinine is around 1.6-1.8. She came in with creatinine of 1.6 and it has gone up to 2.0 and 2.1. The patient was hypotensive on admission and also she has bradycardia and she was hypothermic. She is much better now, her sugar has gone up after given the D50 and she is currently sitting in the chair with nasal cannula. She has mild shortness of breath. According to her the swelling in the leg has been improving but she still has a lot of edema in the legs. She denies any headache or dizziness at present. No chest pain. She has mild cough which is mainly dry. No history of dysuria, hematuria, difficulty passing urine. Additional Remarks Denies any SOB, no edema. (Jessica Clemons) Review of Systems Respiratory Respiratory Remarks Denies any SOB (Jessica Clemons) Cardiovascular Cardiac Remarks Denies any CP (Jessica Clemons) Gastrointestinal GI Remarks No abdominal pain (Jessica Clemons) Objective Data Data Vital Signs Date Time Temp Pulse Resp B/P (MAP) Pulse Ox O2 Delivery O2 Flow Rate FiO2 01/18/18 12:00 97.8 68 20 159/66 (97) 93 01/18/18 08:00 98.5 66 20 155/70 (98) 91 01/18/18 07:39 92 Nasal Cannula 3.00 01/18/18 05:30 148/80 (102) 01/18/18 04:00 98.4 71 20 179/75 (109) 94 01/18/18 04:00 Nasal Cannula 3.00 Humidified 01/18/18 03:47 72 01/18/18 03:23 96 Nasal Cannula 3.00 01/18/18 00:16 68 01/18/18 00:00 97.9 72 18 180/78 (112) 96 01/18/18 00:00 Nasal Cannula 3.00 Humidified 01/17/18 20:25 68 01/17/18 20:00 97.5 70 20 155/71 (99) 94 01/17/18 20:00 Nasal Cannula 3.00 Humidified 01/17/18 16:20 97.7 65 18 144/67 (92) 93 01/17/18 16:00 67 (Jessica Clemons) -: 01/17/18 0846 01/18/18 1318 Physical Exam General Appearance: Well Nourished, No Acute Distress, Comfortable (Jessica Clemons) Eyes Eye Exam: Pupils Equal (Jessica Clemons) Pulmonary Resp Exam: Breath Sounds Equal, No Distress, Decreased Bases (Jessica Clemons) Cardiology CV Exam: Regular, Normal Sinus Rhythm (Jessica Clemons) Gastrointestinal/Abdomen GI Exam: Soft, Non-Tender, Bowel Sounds Present (Jessica Clemons) Genitourinary Exam: Flank Non-Tender (Jessica Clemons) Integumentary Skin Exam: Clear, Warm, Ulcer(s) (Jessica Clemons) Extremeties Extremities Exam: Pitting Edema (Jessica Clemons) Neurologic Neuro Exam: Alert, Awake (Jessica Clemons) Psychiatric Psych Exam: Appropriate Responses (Jessica Clemons) Assessment/Plan Discussed Condition With: Patient Assessment Summary: CKD Stage IV Problem List: (1) Renal insufficiency ICD Codes: N28.9 - Disorder of kidney and ureter, unspecified Plan: The patient has chronic kidney disease with proteinuria, most likely she has diabetic nephropathy On Vanco PO Good UOP Renal US noted Plan continue Lasix every 12 hours, expecting improvement in renal function Avoid nephrotoxins Potassium and calcium WNL Told to restrict oral fluid intake. Creatinine unchanged at 3.08 Labs in AM (2) Leukocytosis ICD Codes: D72.829 - Elevated white blood cell count, unspecified Status: Acute (3) Hypertension ICD Codes: I10 - Essential (primary) hypertension Status: Chronic Plan: Blood pressure improving Continue the same (4) Sepsis ICD Codes: A41.9 - Sepsis, unspecified organism Status: Resolved (5) Anemia ICD Codes: D64.9 - Anemia, unspecified Status: Chronic (6) Stage 4 chronic kidney disease ICD Codes: N18.4 - Chronic kidney disease, stage 4 (severe) (Jessica Clemons) Problem List: (1) Renal insufficiency ICD Codes: N28.9 - Disorder of kidney and ureter, unspecified Plan: The patient has chronic kidney disease with proteinuria, most likely she has diabetic nephropathy On Vanco PO Good UOP Renal US noted Plan continue Lasix every 12 hours, expecting improvement in renal function Avoid nephrotoxins Potassium and calcium WNL Told to restrict oral fluid intake. Creatinine unchanged at 3.08 Labs in AM. Patient seen and examined, agree with above. (2) Leukocytosis ICD Codes: D72.829 - Elevated white blood cell count, unspecified Status: Acute (3) Hypertension ICD Codes: I10 - Essential (primary) hypertension Status: Chronic Plan: Blood pressure improving Continue the same (4) Sepsis ICD Codes: A41.9 - Sepsis, unspecified organism Status: Resolved (5) Anemia ICD Codes: D64.9 - Anemia, unspecified Status: Chronic (6) Stage 4 chronic kidney disease ICD Codes: N18.4 - Chronic kidney disease, stage 4 (severe) (Flavio Toro MD ) Problem Qualifiers (1) Hypertension: Qualified Codes: I10 - Essential (primary) hypertension Jessica Clemons Jan 18, 2018 15:16 Flavio Toro MD Jan 18, 2018 17:12
--- NOTE | 2018-01-18 16:00 | PD.CARD.PN ---
Subjective Subjective Remarks No CP or SOB, no new c/o Objective Medications Current Medications Medications (Trade) Dose Ordered Sig/Marie Route Start Time Stop Time Status Last Admin (NS Flush) 2 ml UNSCH PRN IV FLUSH 12/28/17 10:45 (NS Flush) 2 ml BID IV FLUSH 12/28/17 21:00 01/18/18 09:39 (Zofran Inj) 4 mg Q6H PRN IVP 12/28/17 10:45 01/01/18 08:20 (Narcan Inj) 0.4 mg UNSCH PRN IV PUSH 12/28/17 10:45 (Milk Of Magnesia Liq) 30 ml Q12H PRN PO 12/28/17 10:45 (Senokot) 17.2 mg Q12H PRN PO 12/28/17 10:45 (Dulcolax Supp) 10 mg DAILY PRN RECTAL 12/28/17 10:45 (Lactulose Liq) 30 ml DAILY PRN PO 12/28/17 10:45 (D50w (Vial) Inj) 50 ml UNSCH PRN IV PUSH 12/28/17 10:45 01/01/18 08:38 (Glucagon Inj) 1 mg STAT PRN IM 12/28/17 10:45 (Aspirin Chew) 81 mg DAILY CHEW 12/29/17 09:00 01/18/18 09:36 (Lipitor) 40 mg HS PO 12/28/17 21:00 Future Hold 01/01/18 21:14 (Effient) 10 mg DAILY PO 12/29/17 09:00 01/18/18 09:34 (Heparin Inj) 5,000 units Q12HR SQ 12/28/17 21:00 Future Hold 01/16/18 09:22 ([place] 5-325 Mg) 1 tab Q6H PRN PO 12/28/17 20:45 01/18/18 04:04 Miscellaneous Information Patient in critical care unit? Ass... Q361D .XX 12/28/17 23:30 12/28/17 23:30 (Imdur) 60 mg DAILY@07 PO 12/31/17 07:00 01/18/18 06:05 (Catapres) 0.1 mg Q6H PRN PO 12/30/17 18:30 01/18/18 04:04 (Atrovent Neb) 0.5 mg Q6HR NEB PRN NEB 12/31/17 18:30 01/18/18 07:39 (Apresoline) 75 mg Q8HR PO 12/31/17 22:00 01/18/18 13:06 (Pill Splitter) 1 ea UNSCH PRN OTHER 12/31/17 18:45 (Procardia Xl) 30 mg Q12HR PO 01/01/18 21:00 01/18/18 09:34 (Aldactone) 12.5 mg DAILY PO 01/02/18 10:00 01/18/18 09:34 (NovoLOG SUPPLEMENTAL SCALE) 1 ACHS SLIDING SCALE SQ 01/02/18 12:00 01/18/18 12:00 (Levemir Inj) 5 units Q12HR SQ 01/04/18 09:00 01/18/18 09:47 (Coreg) 6.25 mg Q12HR PO 01/04/18 21:00 01/18/18 09:33 (Cardura) 2 mg DAILY PO 01/05/18 09:00 01/18/18 09:41 (Cardura) 2 mg DAILY PO 01/05/18 09:00 01/14/18 08:49 (Vancomycin 25 Mg/ml Liq) 125 mg QID PO 01/07/18 14:46 01/18/18 13:00 (Tylenol) 650 mg Q4H PRN PO 01/08/18 10:30 (Benadryl) 25 mg Q4H PRN PO 01/08/18 10:30 (Ferrous Sulfate) 325 mg BID PO 01/10/18 21:00 01/18/18 09:34 (Antivert) 25 mg Q8H PRN PO 01/10/18 18:15 (Lasix Inj) 40 mg Q12H IV PUSH 01/13/18 21:00 01/18/18 09:34 Vital Signs / I&O Vital Signs Date Time Temp Pulse Resp B/P (MAP) Pulse Ox O2 Delivery O2 Flow Rate FiO2 01/18/18 12:00 97.8 68 20 159/66 (97) 93 01/18/18 08:00 98.5 66 20 155/70 (98) 91 01/18/18 07:39 92 Nasal Cannula 3.00 2/20/18 05:30 148/80 (102) 01/18/18 04:00 98.4 71 20 179/75 (109) 94 01/18/18 04:00 Nasal Cannula 3.00 Humidified 01/18/18 03:47 72 01/18/18 03:23 96 Nasal Cannula 3.00 01/18/18 00:16 68 01/18/18 00:00 97.9 72 18 180/78 (112) 96 01/18/18 00:00 Nasal Cannula 3.00 Humidified 01/17/18 20:25 68 01/17/18 20:00 97.5 70 20 155/71 (99) 94 01/17/18 20:00 Nasal Cannula 3.00 Humidified 01/17/18 16:20 97.7 65 18 144/67 (92) 93 01/17/18 16:00 67 I/O 01/17/18 01/17/18 01/17/18 01/18/18 01/18/18 01/18/18 07:00 15:00 23:00 07:00 15:00 23:00 Intake Total 200 ml 600 ml 510 ml Output Total 700 ml Balance -500 ml 600 ml 510 ml Intake Oral 200 ml 600 ml 510 ml Output Urine Total 700 ml # Voids 3 4 # Bowel Movements 2 2 2 Physical Exam GENERAL: In NAD. SKIN: Warm and dry. HEAD: Normocephalic. EYES: No scleral icterus. No injection or drainage. NECK: Supple, trachea midline. No JVD or lymphadenopathy. CARDIOVASCULAR: Regular rate and rhythm without murmurs, gallops, or rubs. RESPIRATORY: Breath sounds equal bilaterally. No accessory muscle use. GASTROINTESTINAL: Abdomen soft, non-tender, nondistended. MUSCULOSKELETAL: No cyanosis, mild bilat LE edema Laboratory Laboratory Tests Test 01/18/18 13:18 Blood Urea Nitrogen 72 MG/DL Creatinine 3.08 MG/DL Random Glucose 295 MG/DL Calcium Level 8.6 MG/DL Sodium Level 141 MEQ/L Potassium Level 4.3 MEQ/L Chloride Level 104 MEQ/L Carbon Dioxide Level 28.2 MEQ/L Anion Gap 9 MEQ/L Estimat Glomerular Filtration Rate 15 ML/MIN Assessment and Plan Problem List: (1) Bradycardia ICD Codes: R00.1 - Bradycardia, unspecified Status: Acute (2) Altered mental status ICD Codes: R41.82 - Altered mental status, unspecified Status: Acute (3) Hypoglycemia ICD Codes: E16.2 - Hypoglycemia, unspecified Status: Acute (4) CHF (congestive heart failure) ICD Codes: I50.9 - Heart failure, unspecified (5) Renal insufficiency ICD Codes: N28.9 - Disorder of kidney and ureter, unspecified (6) DM (diabetes mellitus) ICD Codes: E11.9 - Type 2 diabetes mellitus without complications Status: Chronic (7) CAD (coronary artery disease) ICD Codes: I25.10 - Atherosclerotic heart disease of [place] coronary artery without angina pectoris Status: Chronic (8) Chronic kidney disease, stage 4 (severe) ICD Codes: N18.4 - Chronic kidney disease, stage 4 (severe) Status: Chronic (9) Bacteremia ICD Codes: R78.81 - Bacteremia (10) Clostridium difficile colitis ICD Codes: A04.7 - Enterocolitis due to Clostridium difficile Status: Resolved Assessment and Plan No new cardiac issues, no change in overall condition. Difficult situation due to recurrent pleural effusions and severe renal insufficiency. Continue current program including diuresis; some improvement of renal fx (creat 3.1). She had drug eluting stent in Jun 2017; Effient and ASA cannot be stopped unless life threatening emergency occur for 1 year (high risk of stent thrombosis off meds) . Increase activity. PT. Discharge once pt stable with significant renal fx improvement. Problem Qualifiers (1) Altered mental status: Qualified Codes: R40.0 - Somnolence (2) DM (diabetes mellitus): Qualified Codes: E11.628 - Type 2 diabetes mellitus with other skin complications; Z79.4 - senior care (current) use of insulin (3) CAD (coronary artery disease): Qualified Codes: I25.10 - Atherosclerotic heart disease of [place] coronary artery without angina pectoris Dunia Reddy MD Jan 18, 2018 15:59
[2018-01-19] VITALS (9 sets, daily range): BP systolic 118–176; BP diastolic 51–77; PULSE 54–76; RESP 16–20; TEMP 97.5–99.6; O2SAT 93–100
[2018-01-19] MEDS: ACETAMINOPHEN/HYDROcodone 325 MG/5 MG TAB PO PRN (03:00)
[2018-01-19] MEDS: ISOSORBIDE MONONITRATE 60 MG CR TAB (IMDUR) PO SCH (05:39)
[2018-01-19] MEDS: hydrALAZINE HCL 50 MG TAB PO SCH ×3 (05:39→20:50)
[2018-01-19] MEDS: INSULIN ASPART SUPPLEMENTAL SCALE SQ SCH ×4 (08:00→22:02)
[2018-01-19 08:58] LABS: BICARBONATE 28.6 MEQ/L (21.0-32.0); CALCIUM 8.7 MG/DL (8.5-10.1); CREATININE 2.88 MG/DL (0.50-1.00)
[2018-01-19] MEDS: DOXAZOSIN MESYLATE 2 MG TAB PO SCH ×2 (09:00→10:05)
[2018-01-19] MEDS: INSULIN DETEMIR 100 UNITS/ML VIAL SQ SCH ×2 (09:00→22:02)
[2018-01-19] MEDS: SPIRONOLACTONE 25 MG TAB PO SCH (10:04)
[2018-01-19] MEDS: FERROUS SULFATE 325 MG (65 MG ELEMENTAL IRON) TAB PO SCH ×2 (10:05→20:49)
[2018-01-19] MEDS: ASPIRIN 81 MG CHEW TAB CHEW SCH (10:05)
[2018-01-19] MEDS: NIFEdipine 30 MG SUSTAINED RELEASE TAB PO SCH ×2 (10:05→20:49)
[2018-01-19] MEDS: CARVEDILOL 6.25 MG TAB PO SCH ×2 (10:05→20:50)
[2018-01-19] MEDS: PRASUGREL 10 MG TAB PO SCH (10:05)
[2018-01-19] MEDS: SODIUM CHLORIDE 0.9% FLUSH 10 ML FLUSH IV FLUSH SCH ×2 (10:06→20:52)
[2018-01-19] MEDS: FUROSEMIDE 40 MG/4 ML VIAL IV PUSH SCH ×2 (10:06→20:51)
[2018-01-19] MEDS: VANCOMYCIN 25 MG/ML SUSP 100 ML BOTTLE PO SCH ×4 (10:08→20:55)
--- NOTE | 2018-01-19 10:59 | HHI.PR ---
Subjective Remarks Follow-up sepsis/bilateral pleural effusion 01/12/18-patient seen and examined, complains of shortness of breath and requires 5 L nasal cannula oxygen. Plan for right thoracentesis today 01/13/18-patient seen and examined, reports significant improvement of shortness of breath after 1.2 L removed from the right lung yesterday. 01/14/18-patient seen and examined, states she had a rough night sleeping. Patient had 1.25L out removed from left lung yesterday complicated by very small subpulmonic pneumothorax. Discussed today with pulmonary medicine.. 01/15/18-patient seen and examined; SOB improved, Renal indices worsening. No acute event overnight 01/16/18-patient seen and examined, creatinine trending down and patient without any significant shortness of breath. States she would like to go home. 01/17/18-patient seen and examined, denies any chest pain, shortness of breath. Case discussed with cardiology. BMP pending this morning. 01/18/18-patient seen and examined,BP stable and no SOB or CP; states she is ready to go home 01/19/18-patient seen and examined, renal indices improving and patient denies any complaint of shortness of breath. Case discussed with cardiology Objective Vitals Vital Signs Date Time Temp Pulse Resp B/P (MAP) Pulse Ox O2 Delivery O2 Flow Rate FiO2 01/19/18 08:00 97.8 64 16 118/59 (78) 94 01/19/18 04:00 99.6 54 20 126/51 (76) 100 01/19/18 02:59 Nasal Cannula 3.00 Humidified 01/19/18 00:00 Nasal Cannula 3.00 Humidified 01/19/18 00:00 98.6 70 20 158/71 (100) 95 01/18/18 20:00 Nasal Cannula 3.00 01/18/18 20:00 98.7 71 19 164/72 (102) 94 01/18/18 19:48 68 01/18/18 16:20 65 01/18/18 16:00 97.8 70 20 158/68 (98) 92 01/18/18 12:00 97.8 68 20 159/66 (97) 93 I/O 01/18/18 01/18/18 01/18/18 01/19/18 01/19/18 01/19/18 07:00 15:00 23:00 07:00 15:00 23:00 Intake Total 510 ml 720 ml 340 ml Output Total 675 ml Balance 510 ml 45 ml 340 ml Intake Oral 510 ml 720 ml 340 ml Output Urine Total 675 ml # Voids 4 3 # Bowel Movements 2 1 3 Result Diagram: 01/17/18 0846 01/19/18 0533 Objective Remarks GENERAL: NAD SKIN: Warm and dry. HEAD: Normocephalic. EYES: No scleral icterus. No injection or drainage. NECK: Supple, trachea midline. No JVD or lymphadenopathy. CARDIOVASCULAR: Regular rate and rhythm without murmurs, gallops, or rubs. RESPIRATORY: Breath sounds equal bilaterally. No accessory muscle use. GASTROINTESTINAL: Abdomen soft, non-tender, nondistended. MUSCULOSKELETAL: No cyanosis, or edema. BACK: Nontender without obvious deformity. No CVA tenderness. Procedures none A/P Problem List: (1) Sepsis ICD Code: A41.9 - Sepsis, unspecified organism Status: Resolved (2) Hypothermia ICD Code: T68.XXXA - Hypothermia, initial encounter Status: Resolved (3) Hypoglycemia ICD Code: E16.2 - Hypoglycemia, unspecified Status: Acute (4) IDDM (insulin dependent diabetes mellitus) ICD Code: E11.9 - Type 2 diabetes mellitus without complications; Z79.4 - address change clerk (current) use of insulin Status: Chronic (5) Acute on chronic diastolic heart failure ICD Code: I50.33 - Acute on chronic diastolic (congestive) heart failure Status: Resolved (6) Severe protein-calorie malnutrition ICD Code: E43 - Unspecified severe protein-calorie malnutrition Status: Chronic (7) Bilateral pleural effusion ICD Code: J90 - Pleural effusion, not elsewhere classified Status: Acute (8) BPPV (benign paroxysmal positional vertigo) ICD Code: H81.10 - Benign paroxysmal vertigo, unspecified ear (9) CAD (coronary artery disease) ICD Code: I25.10 - Atherosclerotic heart disease of [place] coronary artery without angina pectoris Status: Chronic (10) HTN (hypertension) ICD Code: I10 - Essential (primary) hypertension Status: Chronic (11) COPD (chronic obstructive pulmonary disease) ICD Code: J44.9 - Chronic obstructive pulmonary disease, unspecified (12) Marijuana abuse ICD Code: F12.10 - Cannabis abuse, uncomplicated (13) Clostridium difficile colitis ICD Code: A04.7 - Enterocolitis due to Clostridium difficile Status: Resolved (14) Anemia ICD Code: D64.9 - Anemia, unspecified Assessment and Plan 67-year-old female with sepsis-Resolved Bacteremia with gram-positive bacteria. Staph epi. s/p treatment with Daptomycin. Hypothermia-Resolved Elevated TSH on admission Cortisol level and is suspected range. s/p IV hydrocortisone. TSH elevation likely elevated due to stress and acute illness. Severe malnutrition. Encourage with Glucerna supplements. DM hypoglycemia on admission-Resolved Continue SSI and insulin Levemir 5units Q12H. Acute diastolic CHF exacerbation Currently on IV diuretics 40mg Q12H and likely with switch to by mouth, continue Aldactone, Imdur, Coreg Strict I's and O's Bilateral pleural effusions Cardiology cannot clear patient to hold Effient due to recent drug-eluting stent. Expect these are secondary to CHF. 01/08 sp US guided thoracentesis with drainage of 800 cc of pleural fluid which looks noninfectious. s/p Right sided ultrasound guided thoracentesis 01/12/18-Cytology negative s/p US guided thoracentesis of Left Lung 01/13/18 This was discussed yesterday with interventional radiology regarding future care plan as pleural effusion is concerned. However, patient with a history of CAD, cardiomyopathy with stent placement and currently on Effient, Pleural cath placement is contraindicated. Therefore thoracentesis along with diuretic therapy appear to be the treatments of choice at this time. CONOR on CKD Continue Aldactone 8, metolazone, IV Lasix and albumin. Continue to avoid nephrotoxins, monitor I's and O's and monitor BMP. Appreciate input from Nephrology Renal indices improving with Bun/Cr down to 75/2.88 CAD. controlled hypertension Continue Cardura 4mg daily and Coreg BID, Hydralazine 75mg Q8H. Benign paroxysmal postural vertigo Meclizine PRN Marijuana abuse. Cessation counseling provided. COPD. Continue Duo Nebs, Appreciate input from Pulmonary medicine C. difficile infection. s/p oral vancomycin x 14 days. Anemia. Likely anemia of chronic disease. Patient with CKD stage IV. Hemoglobin stable. Transfused 2 units PRBC Continue oral iron. Right leg wound. Podiatry consulted. Recommended calcium alginate with silver dressing every 3 days. Elevate legs at all times. Recommend follow-up with Dr. Read at the wound center after discharge. Acute Hypoxemic respiratory failure-Improved Improved s/p Thoracentesis s/p Solu Medrol and continue with Lasix IV Maintain oxygen saturation above 92% Problem Qualifiers (1) Hypothermia: Qualified Codes: T68.XXXD - Hypothermia, subsequent encounter (2) BPPV (benign paroxysmal positional vertigo): Qualified Codes: H81.10 - Benign paroxysmal vertigo, unspecified ear Je Morales MD Jan 19, 2018 10:59
--- NOTE | 2018-01-19 11:00 | HHI.FF ---
Face to Face Verification Diagnosis: (1) CKD (chronic kidney disease) stage 3, GFR 30-59 ml/min (2) Respiratory failure (3) Pleural effusion (4) CHF (congestive heart failure) Physical Therapy Order: Evaluate and Treat Home Health Nursing Order: Signs/symptoms of disease process I have seen patient Brinda Maynard on 01/19/18. My clinical findings support the need for the requested home health care services because: Patient has SOB Deconditioned w/ increased weakness I certify that my clinical findings support that this patient is homebound because: Poor cardiac reserve Je Morales MD Jan 19, 2018 11:00
--- NOTE | 2018-01-19 17:37 | PD.CARD.PN ---
Subjective Subjective Remarks No CP or SOB, feels better, wants to go home Objective Medications Current Medications Medications (Trade) Dose Ordered Sig/Marie Route Start Time Stop Time Status Last Admin (NS Flush) 2 ml UNSCH PRN IV FLUSH 12/28/17 10:45 (NS Flush) 2 ml BID IV FLUSH 12/28/17 21:00 01/19/18 10:06 (Zofran Inj) 4 mg Q6H PRN IVP 12/28/17 10:45 01/01/18 08:20 (Narcan Inj) 0.4 mg UNSCH PRN IV PUSH 12/28/17 10:45 (Milk Of Magnesia Liq) 30 ml Q12H PRN PO 12/28/17 10:45 (Senokot) 17.2 mg Q12H PRN PO 12/28/17 10:45 (Dulcolax Supp) 10 mg DAILY PRN RECTAL 12/28/17 10:45 (Lactulose Liq) 30 ml DAILY PRN PO 12/28/17 10:45 (D50w (Vial) Inj) 50 ml UNSCH PRN IV PUSH 12/28/17 10:45 01/01/18 08:38 (Glucagon Inj) 1 mg STAT PRN IM 12/28/17 10:45 (Aspirin Chew) 81 mg DAILY CHEW 12/29/17 09:00 01/19/18 10:05 (Lipitor) 40 mg HS PO 12/28/17 21:00 Future Hold 01/01/18 21:14 (Effient) 10 mg DAILY PO 12/29/17 09:00 01/19/18 10:05 (Heparin Inj) 5,000 units Q12HR SQ 12/28/17 21:00 Future Hold 01/16/18 09:22 ([place] 5-325 Mg) 1 tab Q6H PRN PO 12/28/17 20:45 01/19/18 03:00 Miscellaneous Information Patient in critical care unit? Ass... Q361D .XX 12/28/17 23:30 12/28/17 23:30 (Imdur) 60 mg DAILY@07 PO 12/31/17 07:00 01/19/18 05:39 (Catapres) 0.1 mg Q6H PRN PO 12/30/17 18:30 01/18/18 04:04 (Atrovent Neb) 0.5 mg Q6HR NEB PRN NEB 12/31/17 18:30 01/18/18 07:39 (Apresoline) 75 mg Q8HR PO 12/31/17 22:00 01/19/18 13:46 (Pill Splitter) 1 ea UNSCH PRN OTHER 12/31/17 18:45 (Procardia Xl) 30 mg Q12HR PO 01/01/18 21:00 01/19/18 10:05 (Aldactone) 12.5 mg DAILY PO 01/02/18 10:00 01/19/18 10:04 (NovoLOG SUPPLEMENTAL SCALE) 1 ACHS SLIDING SCALE SQ 01/02/18 12:00 01/19/18 16:34 (Levemir Inj) 5 units Q12HR SQ 01/04/18 09:00 01/19/18 09:00 (Coreg) 6.25 mg Q12HR PO 01/04/18 21:00 01/19/18 10:05 (Cardura) 2 mg DAILY PO 01/05/18 09:00 01/19/18 10:05 (Cardura) 2 mg DAILY PO 01/05/18 09:00 01/14/18 08:49 (Vancomycin 25 Mg/ml Liq) 125 mg QID PO 01/07/18 14:46 01/19/18 13:46 (Tylenol) 650 mg Q4H PRN PO 01/08/18 10:30 (Benadryl) 25 mg Q4H PRN PO 01/08/18 10:30 (Ferrous Sulfate) 325 mg BID PO 01/10/18 21:00 01/19/18 10:05 (Antivert) 25 mg Q8H PRN PO 01/10/18 18:15 (Lasix Inj) 40 mg Q12H IV PUSH 01/13/18 21:00 01/19/18 10:06 Vital Signs / I&O Vital Signs Date Time Temp Pulse Resp B/P (MAP) Pulse Ox O2 Delivery O2 Flow Rate FiO2 01/19/18 12:00 97.7 69 16 152/68 (96) 93 01/19/18 08:00 97.8 64 16 118/59 (78) 94 01/19/18 04:00 99.6 54 20 126/51 (76) 100 01/19/18 02:59 Nasal Cannula 3.00 Humidified 01/19/18 00:00 Nasal Cannula 3.00 Humidified 01/19/18 00:00 98.6 70 20 158/71 (100) 95 01/18/18 20:00 Nasal Cannula 3.00 01/18/18 20:00 98.7 71 19 164/72 (102) 94 01/18/18 19:48 68 I/O 01/18/18 01/18/18 01/18/18 01/19/18 01/19/18 01/19/18 07:00 15:00 23:00 07:00 15:00 23:00 Intake Total 510 ml 720 ml 340 ml Output Total 675 ml 600 ml Balance 510 ml 45 ml 340 ml -600 ml Intake Oral 510 ml 720 ml 340 ml Output Urine Total 675 ml 600 ml # Voids 4 3 # Bowel Movements 2 1 3 2 Physical Exam GENERAL: In NAD. SKIN: Warm and dry. HEAD: Normocephalic. EYES: No scleral icterus. No injection or drainage. NECK: Supple, trachea midline. No JVD or lymphadenopathy. CARDIOVASCULAR: Regular rate and rhythm without murmurs, gallops, or rubs. RESPIRATORY: Breath sounds equal bilaterally. No accessory muscle use. GASTROINTESTINAL: Abdomen soft, non-tender, nondistended. MUSCULOSKELETAL: No cyanosis, mild bilat LE edema Laboratory Laboratory Tests Test 01/19/18 05:33 Blood Urea Nitrogen 75 MG/DL Creatinine 2.88 MG/DL Random Glucose 111 MG/DL Calcium Level 8.7 MG/DL Sodium Level 141 MEQ/L Potassium Level 4.2 MEQ/L Chloride Level 105 MEQ/L Carbon Dioxide Level 28.6 MEQ/L Anion Gap 7 MEQ/L Estimat Glomerular Filtration Rate 16 ML/MIN Assessment and Plan Problem List: (1) Bradycardia ICD Codes: R00.1 - Bradycardia, unspecified Status: Acute (2) Altered mental status ICD Codes: R41.82 - Altered mental status, unspecified Status: Acute (3) Hypoglycemia ICD Codes: E16.2 - Hypoglycemia, unspecified Status: Acute (4) CHF (congestive heart failure) ICD Codes: I50.9 - Heart failure, unspecified (5) Renal insufficiency ICD Codes: N28.9 - Disorder of kidney and ureter, unspecified (6) DM (diabetes mellitus) ICD Codes: E11.9 - Type 2 diabetes mellitus without complications Status: Chronic (7) CAD (coronary artery disease) ICD Codes: I25.10 - Atherosclerotic heart disease of [place] coronary artery without angina pectoris Status: Chronic (8) Chronic kidney disease, stage 4 (severe) ICD Codes: N18.4 - Chronic kidney disease, stage 4 (severe) Status: Chronic (9) Bacteremia ICD Codes: R78.81 - Bacteremia (10) Clostridium difficile colitis ICD Codes: A04.7 - Enterocolitis due to Clostridium difficile Status: Resolved Assessment and Plan No new cardiac issues.. Difficult situation due to recurrent pleural effusions and severe renal insufficiency. Continue current program including diuresis. She had drug eluting stent in Jun 2017; Effient and ASA cannot be stopped unless life threatening emergency occur for 1 year (high risk of stent thrombosis off meds). Increase activity. PT. Anticipate discharge home soon. D/ w Dr. Morales. Problem Qualifiers (1) Altered mental status: Qualified Codes: R40.0 - Somnolence (2) DM (diabetes mellitus): Qualified Codes: E11.628 - Type 2 diabetes mellitus with other skin complications; Z79.4 - senior care (current) use of insulin (3) CAD (coronary artery disease): Qualified Codes: I25.10 - Atherosclerotic heart disease of [place] coronary artery without angina pectoris Dunia Reddy MD Jan 19, 2018 17:37
--- NOTE | 2018-01-19 19:15 | HHI.NPPN ---
Subjective History of Present Illness This is a 67-year-old female known to me from before, has been following with me in the office with past medical history of hypertension, ischemic heart disease, congestive heart failure, diabetes mellitus, chronic obstructive pulmonary disease, chronic anemia, hyperlipidemia, chronic kidney disease, came to the hospital with low blood sugar. I was called to see the patient because of elevated BUN and creatinine. The patient has known history of chronic kidney disease. Her baseline creatinine is around 1.6-1.8. She came in with creatinine of 1.6 and it has gone up to 2.0 and 2.1. The patient was hypotensive on admission and also she has bradycardia and she was hypothermic. She is much better now, her sugar has gone up after given the D50 and she is currently sitting in the chair with nasal cannula. She has mild shortness of breath. According to her the swelling in the leg has been improving but she still has a lot of edema in the legs. She denies any headache or dizziness at present. No chest pain. She has mild cough which is mainly dry. No history of dysuria, hematuria, difficulty passing urine. Additional Remarks Patient is alert, breathing is better, not in distress. Review of Systems Respiratory Respiratory Remarks Denies any SOB Cardiovascular Cardiac Remarks Denies any CP Gastrointestinal GI Remarks No abdominal pain Objective Data Data 01/19/18 01/20/18 19:00 07:00 Intake Total 720 ml Output Total 600 ml Balance 120 ml Intake Oral 720 ml Output Urine Total 600 ml # Voids 3 # Bowel Movements 5 Vital Signs Date Time Temp Pulse Resp B/P (MAP) Pulse Ox O2 Delivery O2 Flow Rate FiO2 01/19/18 16:00 97.8 70 16 176/77 (110) 94 01/19/18 12:00 97.7 69 16 152/68 (96) 93 01/19/18 08:00 97.8 64 16 118/59 (78) 94 01/19/18 04:00 99.6 54 20 126/51 (76) 100 01/19/18 02:59 Nasal Cannula 3.00 Humidified 01/19/18 00:00 Nasal Cannula 3.00 Humidified 01/19/18 00:00 98.6 70 20 158/71 (100) 95 01/18/18 20:00 Nasal Cannula 3.00 01/18/18 20:00 98.7 71 19 164/72 (102) 94 01/18/18 19:48 68 -: 01/17/18 0846 01/19/18 0533 Physical Exam General Appearance: Well Nourished, No Acute Distress, Comfortable Eyes Eye Exam: Pupils Equal Pulmonary Resp Exam: Breath Sounds Equal, No Distress, Decreased Bases Cardiology CV Exam: Regular, Normal Sinus Rhythm Gastrointestinal/Abdomen GI Exam: Soft, Non-Tender, Bowel Sounds Present Genitourinary Exam: Flank Non-Tender Integumentary Skin Exam: Clear, Warm, Ulcer(s) Extremeties Extremities Exam: Pitting Edema Neurologic Neuro Exam: Alert, Awake Psychiatric Psych Exam: Appropriate Responses Assessment/Plan Discussed Condition With: Patient Assessment Summary: CKD Stage IV Problem List: (1) Renal insufficiency ICD Codes: N28.9 - Disorder of kidney and ureter, unspecified Plan: The patient has chronic kidney disease with proteinuria, most likely she has diabetic nephropathy On Vanco PO Good UOP Renal US noted Plan continue Lasix every 12 hours, expecting improvement in renal function Avoid nephrotoxins Potassium and calcium WNL Told to restrict oral fluid intake. Creatinine improve slightly, GFR now is 16 ml/min. Continue Lasix, told to restrict oral fluid intake. (2) Leukocytosis ICD Codes: D72.829 - Elevated white blood cell count, unspecified Status: Acute (3) Hypertension ICD Codes: I10 - Essential (primary) hypertension Status: Chronic Plan: Blood pressure improving Continue the same (4) Sepsis ICD Codes: A41.9 - Sepsis, unspecified organism Status: Resolved (5) Anemia ICD Codes: D64.9 - Anemia, unspecified Status: Chronic (6) Stage 4 chronic kidney disease ICD Codes: N18.4 - Chronic kidney disease, stage 4 (severe) Problem Qualifiers (1) Hypertension: Qualified Codes: I10 - Essential (primary) hypertension Flavio Toro MD Jan 19, 2018 19:15
[2018-01-20] MEDS: cloNIDine HCL 0.1 MG TAB PO PRN (01:46)
[2018-01-20 01:50] VITALS: BP 170/76
[2018-01-20 03:52] VITALS: PULSE 69
[2018-01-20 04:13] VITALS: BP 195/78; PULSE 70; RESP 20; TEMP 98.5; O2SAT 94
[2018-01-20] MEDS: ACETAMINOPHEN/HYDROcodone 325 MG/5 MG TAB PO PRN (04:25)
[2018-01-20] MEDS: ISOSORBIDE MONONITRATE 60 MG CR TAB (IMDUR) PO SCH (05:34)
[2018-01-20] MEDS: hydrALAZINE HCL 50 MG TAB PO SCH (05:35)
[2018-01-20 08:00] VITALS: BP 171/73; PULSE 64; RESP 18; TEMP 98.3; O2SAT 94
[2018-01-20] MEDS: PRASUGREL 10 MG TAB PO SCH (09:20)
[2018-01-20] MEDS: SPIRONOLACTONE 25 MG TAB PO SCH (09:20)
[2018-01-20] MEDS: DOXAZOSIN MESYLATE 2 MG TAB PO SCH ×2 (09:20)
[2018-01-20] MEDS: FERROUS SULFATE 325 MG (65 MG ELEMENTAL IRON) TAB PO SCH (09:20)
[2018-01-20] MEDS: NIFEdipine 30 MG SUSTAINED RELEASE TAB PO SCH (09:20)
[2018-01-20] MEDS: ASPIRIN 81 MG CHEW TAB CHEW SCH (09:21)
[2018-01-20] MEDS: FUROSEMIDE 40 MG/4 ML VIAL IV PUSH SCH (09:21)
[2018-01-20] MEDS: INSULIN DETEMIR 100 UNITS/ML VIAL SQ SCH (09:21)
[2018-01-20] MEDS: SODIUM CHLORIDE 0.9% FLUSH 10 ML FLUSH IV FLUSH SCH (09:21)
[2018-01-20] MEDS: VANCOMYCIN 25 MG/ML SUSP 100 ML BOTTLE PO SCH (09:21)
[2018-01-20] MEDS: CARVEDILOL 6.25 MG TAB PO SCH (09:21)
[2018-01-20] MEDS: INSULIN ASPART SUPPLEMENTAL SCALE SQ SCH (09:21)
--- NOTE | 2018-01-20 10:19 | PD.CARD.PN ---
Subjective Subjective Remarks No CP or SOB, no new c/o Objective Medications Current Medications Medications (Trade) Dose Ordered Sig/Marie Route Start Time Stop Time Status Last Admin (NS Flush) 2 ml UNSCH PRN IV FLUSH 12/28/17 10:45 (NS Flush) 2 ml BID IV FLUSH 12/28/17 21:00 01/20/18 09:21 (Zofran Inj) 4 mg Q6H PRN IVP 12/28/17 10:45 01/01/18 08:20 (Narcan Inj) 0.4 mg UNSCH PRN IV PUSH 12/28/17 10:45 (Milk Of Magnesia Liq) 30 ml Q12H PRN PO 12/28/17 10:45 (Senokot) 17.2 mg Q12H PRN PO 12/28/17 10:45 (Dulcolax Supp) 10 mg DAILY PRN RECTAL 12/28/17 10:45 (Lactulose Liq) 30 ml DAILY PRN PO 12/28/17 10:45 (D50w (Vial) Inj) 50 ml UNSCH PRN IV PUSH 12/28/17 10:45 01/01/18 08:38 (Glucagon Inj) 1 mg STAT PRN IM 12/28/17 10:45 (Aspirin Chew) 81 mg DAILY CHEW 12/29/17 09:00 01/20/18 09:21 (Lipitor) 40 mg HS PO 12/28/17 21:00 Future Hold 01/01/18 21:14 (Effient) 10 mg DAILY PO 12/29/17 09:00 01/20/18 09:20 (Heparin Inj) 5,000 units Q12HR SQ 12/28/17 21:00 Future Hold 01/16/18 09:22 ([place] 5-325 Mg) 1 tab Q6H PRN PO 12/28/17 20:45 01/20/18 04:25 Miscellaneous Information Patient in critical care unit? Ass... Q361D .XX 12/28/17 23:30 12/28/17 23:30 (Imdur) 60 mg DAILY@07 PO 12/31/17 07:00 01/20/18 05:34 (Catapres) 0.1 mg Q6H PRN PO 12/30/17 18:30 01/20/18 01:46 (Atrovent Neb) 0.5 mg Q6HR NEB PRN NEB 12/31/17 18:30 01/18/18 07:39 (Apresoline) 75 mg Q8HR PO 12/31/17 22:00 01/20/18 05:35 (Pill Splitter) 1 ea UNSCH PRN OTHER 12/31/17 18:45 (Procardia Xl) 30 mg Q12HR PO 01/01/18 21:00 01/20/18 09:20 (Aldactone) 12.5 mg DAILY PO 01/02/18 10:00 01/20/18 09:20 (NovoLOG SUPPLEMENTAL SCALE) 1 ACHS SLIDING SCALE SQ 01/02/18 12:00 01/19/18 22:02 (Levemir Inj) 5 units Q12HR SQ 01/04/18 09:00 01/20/18 09:21 (Coreg) 6.25 mg Q12HR PO 01/04/18 21:00 01/20/18 09:21 (Cardura) 2 mg DAILY PO 01/05/18 09:00 01/20/18 09:20 (Cardura) 2 mg DAILY PO 01/05/18 09:00 01/20/18 09:20 (Vancomycin 25 Mg/ml Liq) 125 mg QID PO 01/07/18 14:46 01/20/18 09:21 (Tylenol) 650 mg Q4H PRN PO 01/08/18 10:30 (Benadryl) 25 mg Q4H PRN PO 01/08/18 10:30 (Ferrous Sulfate) 325 mg BID PO 01/10/18 21:00 01/20/18 09:20 (Antivert) 25 mg Q8H PRN PO 01/10/18 18:15 (Lasix Inj) 40 mg Q12H IV PUSH 01/13/18 21:00 01/20/18 09:21 Vital Signs / I&O Vital Signs Date Time Temp Pulse Resp B/P (MAP) Pulse Ox O2 Delivery O2 Flow Rate FiO2 01/20/18 08:00 Nasal Cannula 3.00 01/20/18 08:00 98.3 64 18 171/73 (105) 94 01/20/18 08:00 64 01/20/18 04:13 98.5 70 20 195/78 (117) 94 01/20/18 04:00 Nasal Cannula 3.00 Humidified 01/20/18 03:52 69 01/20/18 01:50 170/76 (107) 01/20/18 00:00 Nasal Cannula 3.00 Humidified 01/19/18 23:49 68 01/19/18 23:12 97.5 68 20 161/68 (99) 93 01/19/18 20:42 98.0 72 20 150/66 (94) 93 01/19/18 20:00 Nasal Cannula 3.00 Humidified 01/19/18 19:30 71 01/19/18 16:00 97.8 70 16 176/77 (110) 94 01/19/18 12:00 97.7 69 16 152/68 (96) 93 I/O 01/19/18 01/19/18 01/19/18 01/20/18 01/20/18 01/20/18 07:00 15:00 23:00 07:00 15:00 23:00 Intake Total 340 ml 720 ml 240 ml Output Total 600 ml 550 ml Balance 340 ml -600 ml 720 ml -310 ml Intake Oral 340 ml 720 ml 240 ml Output Urine Total 600 ml 550 ml # Voids 3 3 # Bowel Movements 3 2 3 1 Physical Exam GENERAL: In NAD. SKIN: Warm and dry. HEAD: Normocephalic. EYES: No scleral icterus. No injection or drainage. NECK: Supple, trachea midline. No JVD or lymphadenopathy. CARDIOVASCULAR: Regular rate and rhythm without murmurs, gallops, or rubs. RESPIRATORY: Breath sounds equal bilaterally. No accessory muscle use. GASTROINTESTINAL: Abdomen soft, non-tender, nondistended. MUSCULOSKELETAL: No cyanosis, mild bilat LE edema Assessment and Plan Problem List: (1) Bradycardia ICD Codes: R00.1 - Bradycardia, unspecified Status: Acute (2) Altered mental status ICD Codes: R41.82 - Altered mental status, unspecified Status: Acute (3) Hypoglycemia ICD Codes: E16.2 - Hypoglycemia, unspecified Status: Acute (4) CHF (congestive heart failure) ICD Codes: I50.9 - Heart failure, unspecified (5) Renal insufficiency ICD Codes: N28.9 - Disorder of kidney and ureter, unspecified (6) DM (diabetes mellitus) ICD Codes: E11.9 - Type 2 diabetes mellitus without complications Status: Chronic (7) CAD (coronary artery disease) ICD Codes: I25.10 - Atherosclerotic heart disease of [place] coronary artery without angina pectoris Status: Chronic (8) Chronic kidney disease, stage 4 (severe) ICD Codes: N18.4 - Chronic kidney disease, stage 4 (severe) Status: Chronic (9) Bacteremia ICD Codes: R78.81 - Bacteremia (10) Clostridium difficile colitis ICD Codes: A04.7 - Enterocolitis due to Clostridium difficile Status: Resolved Assessment and Plan Remains stable from cardiac standpoint. Continue current program including diuresis. Renal fx stable. She had drug eluting stent in Jun 2017; Effient and ASA cannot be stopped unless life threatening emergency occur for 1 year (high risk of stent thrombosis off meds). Increase activity. PT. DC home. D/w Dr. Morales. Problem Qualifiers (1) Altered mental status: Qualified Codes: R40.0 - Somnolence (2) DM (diabetes mellitus): Qualified Codes: E11.628 - Type 2 diabetes mellitus with other skin complications; Z79.4 - technician terminal and repeater (current) use of insulin (3) CAD (coronary artery disease): Qualified Codes: I25.10 - Atherosclerotic heart disease of [place] coronary artery without angina pectoris Dunia Reddy MD Jan 20, 2018 10:19
--- NOTE | 2018-01-20 10:31 | HHI.PR ---
Subjective Remarks Follow-up sepsis/bilateral pleural effusion 01/12/18-patient seen and examined, complains of shortness of breath and requires 5 L nasal cannula oxygen. Plan for right thoracentesis today 01/13/18-patient seen and examined, reports significant improvement of shortness of breath after 1.2 L removed from the right lung yesterday. 01/14/18-patient seen and examined, states she had a rough night sleeping. Patient had 1.25L out removed from left lung yesterday complicated by very small subpulmonic pneumothorax. Discussed today with pulmonary medicine.. 01/15/18-patient seen and examined; SOB improved, Renal indices worsening. No acute event overnight 01/16/18-patient seen and examined, creatinine trending down and patient without any significant shortness of breath. States she would like to go home. 01/17/18-patient seen and examined, denies any chest pain, shortness of breath. Case discussed with cardiology. BMP pending this morning. 01/18/18-patient seen and examined,BP stable and no SOB or CP; states she is ready to go home 01/19/18-patient seen and examined, renal indices improving and patient denies any complaint of shortness of breath. Case discussed with cardiology 01/20/18-patient seen and examined, stable and no complaint. states she will be complaint with medical care after discharge home Objective Vitals Vital Signs Date Time Temp Pulse Resp B/P (MAP) Pulse Ox O2 Delivery O2 Flow Rate FiO2 01/20/18 08:00 Nasal Cannula 3.00 01/20/18 08:00 98.3 64 18 171/73 (105) 94 01/20/18 08:00 64 01/20/18 04:13 98.5 70 20 195/78 (117) 94 01/20/18 04:00 Nasal Cannula 3.00 Humidified 01/20/18 03:52 69 01/20/18 01:50 170/76 (107) 01/20/18 00:00 Nasal Cannula 3.00 Humidified 01/19/18 23:49 68 01/19/18 23:12 97.5 68 20 161/68 (99) 93 01/19/18 20:42 98.0 72 20 150/66 (94) 93 01/19/18 20:00 Nasal Cannula 3.00 Humidified 01/19/18 19:30 71 01/19/18 16:00 97.8 70 16 176/77 (110) 94 01/19/18 12:00 97.7 69 16 152/68 (96) 93 I/O 01/19/18 01/19/18 01/19/18 01/20/18 01/20/18 01/20/18 07:00 15:00 23:00 07:00 15:00 23:00 Intake Total 340 ml 720 ml 240 ml Output Total 600 ml 550 ml Balance 340 ml -600 ml 720 ml -310 ml Intake Oral 340 ml 720 ml 240 ml Output Urine Total 600 ml 550 ml # Voids 3 3 # Bowel Movements 3 2 3 1 Result Diagram: 01/17/18 0846 01/19/18 0533 Imaging Last Impressions Thoracentesis Ultrasound 01/13/18 0000 Signed Impressions: Service Date/Time: December 15:02 - CONCLUSION: Uncomplicated ultrasound guided thoracentesis. Preet Chavez MD Chest X-Ray 01/13/18 0000 Signed Impressions: Service Date/Time: December 15:41 - CONCLUSION: 1. Very small subpulmonic pneumothorax following thoracentesis with interval resolution of left-sided pleural effusion. Eric Pham MD Chest Ultrasound 01/11/18 0000 Signed Impressions: Service Date/Time: Thursday, January 11, 2018 14:01 - CONCLUSION: Moderate size right pleural effusion. This is simple in appearance. Dewayne Donaldson Jr., MD Renal Ultrasound 01/02/18 0000 Signed Impressions: Service Date/Time: Tuesday, January 02, 2018 14:33 - CONCLUSION: Left pleural effusion with sinusitis and possible fatty liver. K. Mahad King MD Head CT 12/28/17 0807 Signed Impressions: Service Date/Time: Thursday, December 28, 2017 09:04 - CONCLUSION: No acute disease. No significant change has occurred. Héctor Carmona MD Abdomen/Pelvis CT 12/28/17 0000 Signed Impressions: Service Date/Time: Thursday, December 28, 2017 09:07 - CONCLUSION: Stable abdomen. No evidence of free air and no evidence of obstruction. Large bilateral pleural effusions with ascites and anasarca. Diverticuli uncomplicated of the colon with diminished mural thickening of the colon suggesting improving colitis. Lim catheter in place in the urinary bladder. Héctor Carmona MD Objective Remarks GENERAL: NAD SKIN: Warm and dry. HEAD: Normocephalic. EYES: No scleral icterus. No injection or drainage. NECK: Supple, trachea midline. No JVD or lymphadenopathy. CARDIOVASCULAR: Regular rate and rhythm without murmurs, gallops, or rubs. RESPIRATORY: Breath sounds equal bilaterally. No accessory muscle use. GASTROINTESTINAL: Abdomen soft, non-tender, nondistended. MUSCULOSKELETAL: No cyanosis, or edema. BACK: Nontender without obvious deformity. No CVA tenderness. Procedures Multiple thoracentesis x 3 A/P Problem List: (1) Sepsis ICD Code: A41.9 - Sepsis, unspecified organism Status: Resolved (2) Hypothermia ICD Code: T68.XXXA - Hypothermia, initial encounter Status: Resolved (3) Hypoglycemia ICD Code: E16.2 - Hypoglycemia, unspecified Status: Acute (4) IDDM (insulin dependent diabetes mellitus) ICD Code: E11.9 - Type 2 diabetes mellitus without complications; Z79.4 - prison (current) use of insulin Status: Chronic (5) Acute on chronic diastolic heart failure ICD Code: I50.33 - Acute on chronic diastolic (congestive) heart failure Status: Resolved (6) Severe protein-calorie malnutrition ICD Code: E43 - Unspecified severe protein-calorie malnutrition Status: Chronic (7) Bilateral pleural effusion ICD Code: J90 - Pleural effusion, not elsewhere classified Status: Acute (8) BPPV (benign paroxysmal positional vertigo) ICD Code: H81.10 - Benign paroxysmal vertigo, unspecified ear (9) CAD (coronary artery disease) ICD Code: I25.10 - Atherosclerotic heart disease of [place] coronary artery without angina pectoris Status: Chronic (10) HTN (hypertension) ICD Code: I10 - Essential (primary) hypertension Status: Chronic (11) COPD (chronic obstructive pulmonary disease) ICD Code: J44.9 - Chronic obstructive pulmonary disease, unspecified (12) Marijuana abuse ICD Code: F12.10 - Cannabis abuse, uncomplicated (13) Clostridium difficile colitis ICD Code: A04.7 - Enterocolitis due to Clostridium difficile Status: Resolved (14) Anemia ICD Code: D64.9 - Anemia, unspecified Assessment and Plan 67-year-old female with sepsis-Resolved Bacteremia with gram-positive bacteria. Staph epi. s/p treatment with Daptomycin. Hypothermia-Resolved Elevated TSH on admission Cortisol level and is suspected range. s/p IV hydrocortisone. TSH elevation likely elevated due to stress and acute illness. Severe malnutrition. Encourage with Glucerna supplements. DM hypoglycemia on admission-Resolved Continue SSI and insulin Levemir 5units Q12H. Acute diastolic CHF exacerbation Currently on IV diuretics 40mg Q12H and likely with switch to by mouth, continue Aldactone, Imdur, Coreg Strict I's and O's Bilateral pleural effusions Cardiology cannot clear patient to hold Effient due to recent drug-eluting stent. Expect these are secondary to CHF. 01/08 sp US guided thoracentesis with drainage of 800 cc of pleural fluid which looks noninfectious. s/p Right sided ultrasound guided thoracentesis 01/12/18-Cytology negative s/p US guided thoracentesis of Left Lung 01/13/18 This was discussed yesterday with interventional radiology regarding future care plan as pleural effusion is concerned. However, patient with a history of CAD, cardiomyopathy with stent placement and currently on Effient, Pleural cath placement is contraindicated. Therefore thoracentesis along with diuretic therapy appear to be the treatments of choice at this time. CONOR on CKD Continue Aldactone 8, metolazone, Lasix and Continue to avoid nephrotoxins, monitor I's and O's Appreciate input from Nephrology Renal indices improving CAD. controlled hypertension Continue Cardura 4mg daily and Coreg BID, Hydralazine 75mg Q8H. Benign paroxysmal postural vertigo Meclizine PRN Marijuana abuse. Cessation counseling provided. COPD. Continue Duo Nebs, Appreciate input from Pulmonary medicine C. difficile infection. s/p oral vancomycin x 14 days. Anemia. Likely anemia of chronic disease. Patient with CKD stage IV. Hemoglobin stable. Transfused 2 units PRBC Continue oral iron. Right leg wound. Podiatry consulted. Recommended calcium alginate with silver dressing every 3 days. Elevate legs at all times. Recommend follow-up with Dr. Read at the wound center after discharge. Acute Hypoxemic respiratory failure-Improved Improved s/p Thoracentesis s/p Solu Medrol and continue with Lasix Maintain oxygen saturation above 92% Problem Qualifiers (1) Hypothermia: Qualified Codes: T68.XXXD - Hypothermia, subsequent encounter (2) BPPV (benign paroxysmal positional vertigo): Qualified Codes: H81.10 - Benign paroxysmal vertigo, unspecified ear Je Morales MD Jan 20, 2018 10:31
[2018-01-20] MEDS ORDERED: NIFE30TA8 PO (10:39)
[2018-01-20] MEDS ORDERED: SPIR25 PO (10:39)
[2018-01-20] MEDS ORDERED: LEVEMIR SQ (10:39)
[2018-01-20] MEDS ORDERED: IPRA17I INH (10:39)
[2018-01-20] MEDS ORDERED: VENTAER INH (10:39)
[2018-01-20] MEDS ORDERED: CARV6.25 PO (10:39)
[2018-01-20] MEDS ORDERED: HYDR-3800 PO (10:39)
[2018-01-20] MEDS ORDERED: FERR325T20 PO (10:39)
[2018-01-20] MEDS ORDERED: FURO40TA PO (10:39)
[2018-01-20] MEDS ORDERED: CARD2TAB PO (10:39)
--- NOTE | 2018-01-20 10:44 | HHI.DS ---
Discharge Summary Admission Date Dec 28, 2017 at 10:34 Discharge Date: Jan 20, 2018 Admitting Diagnosis myxedema coma, hyperglycemia, AMS, bradycardia, hypothermia (1) Sepsis ICD Code: A41.9 - Sepsis, unspecified organism Status: Resolved (2) Hypothermia ICD Code: T68.XXXA - Hypothermia, initial encounter Status: Resolved (3) Hypoglycemia ICD Code: E16.2 - Hypoglycemia, unspecified Status: Acute (4) IDDM (insulin dependent diabetes mellitus) ICD Code: E11.9 - Type 2 diabetes mellitus without complications; Z79.4 - [employer] (current) use of insulin Status: Chronic (5) Acute on chronic diastolic heart failure ICD Code: I50.33 - Acute on chronic diastolic (congestive) heart failure Status: Resolved (6) Severe protein-calorie malnutrition ICD Code: E43 - Unspecified severe protein-calorie malnutrition Status: Chronic (7) Bilateral pleural effusion ICD Code: J90 - Pleural effusion, not elsewhere classified Status: Acute (8) BPPV (benign paroxysmal positional vertigo) ICD Code: H81.10 - Benign paroxysmal vertigo, unspecified ear (9) CAD (coronary artery disease) ICD Code: I25.10 - Atherosclerotic heart disease of [place] coronary artery without angina pectoris Status: Chronic (10) HTN (hypertension) ICD Code: I10 - Essential (primary) hypertension Status: Chronic (11) COPD (chronic obstructive pulmonary disease) ICD Code: J44.9 - Chronic obstructive pulmonary disease, unspecified (12) Marijuana abuse ICD Code: F12.10 - Cannabis abuse, uncomplicated (13) Clostridium difficile colitis ICD Code: A04.7 - Enterocolitis due to Clostridium difficile Status: Resolved (14) Anemia ICD Code: D64.9 - Anemia, unspecified Procedures Multiple thoracentesis x 3 Brief History - From Admission Patient found to have somnolence this morning. Blood sugar was in the 30s. Patient had nausea vomiting on the way to the hospital, however nausea has resolved at this time. Blood sugars Improved after D50 supplementation. Patient seen on arrival to the floor. She is somnolent, but awakes for exam and is oriented 3. She denies any recent changes in medications. Return denies any recent infection. Denies any cough, chest pain, shortness of breath. She does report loose bowel movements which have been off for the past month. She does have a history of C. difficile treated on previous admission. CBC/BMP: 01/17/18 0846 01/19/18 0533 Significant Findings Laboratory Tests Test 01/18/18 13:18 01/19/18 05:33 Blood Urea Nitrogen 72 MG/DL (7-18) 75 MG/DL (7-18) Creatinine 3.08 MG/DL (0.50-1.00) 2.88 MG/DL (0.50-1.00) Random Glucose 295 MG/DL (74-106) 111 MG/DL (74-106) Estimat Glomerular Filtration Rate 15 ML/MIN (>89) 16 ML/MIN (>89) Imaging Last Impressions Thoracentesis Ultrasound 01/13/18 0000 Signed Impressions: Service Date/Time: December 15:02 - CONCLUSION: Uncomplicated ultrasound guided thoracentesis. Preet Chavez MD Chest X-Ray 01/13/18 0000 Signed Impressions: Service Date/Time: December 15:41 - CONCLUSION: 1. Very small subpulmonic pneumothorax following thoracentesis with interval resolution of left-sided pleural effusion. Eric Pham MD Chest Ultrasound 01/11/18 0000 Signed Impressions: Service Date/Time: Thursday, January 11, 2018 14:01 - CONCLUSION: Moderate size right pleural effusion. This is simple in appearance. Dewayne Donaldson Jr., MD Renal Ultrasound 01/02/18 0000 Signed Impressions: Service Date/Time: Tuesday, January 02, 2018 14:33 - CONCLUSION: Left pleural effusion with sinusitis and possible fatty liver. K. Mahad King MD Head CT 12/28/17 0807 Signed Impressions: Service Date/Time: Thursday, December 28, 2017 09:04 - CONCLUSION: No acute disease. No significant change has occurred. Héctor Carmona MD Abdomen/Pelvis CT 12/28/17 0000 Signed Impressions: Service Date/Time: Thursday, December 28, 2017 09:07 - CONCLUSION: Stable abdomen. No evidence of free air and no evidence of obstruction. Large bilateral pleural effusions with ascites and anasarca. Diverticuli uncomplicated of the colon with diminished mural thickening of the colon suggesting improving colitis. Lim catheter in place in the urinary bladder. Héctor Carmona MD PE at Discharge GENERAL: NAD SKIN: Warm and dry. HEAD: Normocephalic. EYES: No scleral icterus. No injection or drainage. NECK: Supple, trachea midline. No JVD or lymphadenopathy. CARDIOVASCULAR: Regular rate and rhythm without murmurs, gallops, or rubs. RESPIRATORY: Breath sounds equal bilaterally. No accessory muscle use. GASTROINTESTINAL: Abdomen soft, non-tender, nondistended. MUSCULOSKELETAL: No cyanosis, or edema. BACK: Nontender without obvious deformity. No CVA tenderness. Hospital Course while in the hospital ,patient was treated for: sepsis-Resolved Bacteremia with gram-positive bacteria. Staph epi. s/p treatment with Daptomycin. Hypothermia-Resolved Elevated TSH on admission Cortisol level and is suspected range. s/p IV hydrocortisone. TSH elevation likely elevated due to stress and acute illness. Severe malnutrition. Encourage with Glucerna supplements. DM hypoglycemia on admission-Resolved Treated with SSI and insulin Levemir 5units Q12H. Acute diastolic CHF exacerbation Treated with diuretics 40mg Q12H , continue Aldactone, Imdur, Coreg Strict I's and O's Bilateral pleural effusions Cardiology cannot clear patient to hold Effient due to recent drug-eluting stent. Expect these are secondary to CHF. 01/08 sp US guided thoracentesis with drainage of 800 cc of pleural fluid which looks noninfectious. s/p Right sided ultrasound guided thoracentesis 01/12/18-Cytology negative s/p US guided thoracentesis of Left Lung 01/13/18 This was discussed with interventional radiology regarding future care plan as pleural effusion is concerned. However, patient with a history of CAD, cardiomyopathy with stent placement and currently on Effient, Pleural cath placement is contraindicated. Therefore thoracentesis along with diuretic therapy appear to be the treatments of choice at this time. CONOR on CKD Treated with Aldactone 8, metolazone, Lasix and Continue to avoid nephrotoxins, monitor I's and O's Appreciate input from Nephrology Renal indices improving CAD. controlled hypertension Treated with Cardura 4mg daily and Coreg BID, Hydralazine 75mg Q8H. Benign paroxysmal postural vertigo Meclizine PRN Marijuana abuse. Cessation counseling provided. COPD. Treated with Ana Pedroza, Appreciate input from Pulmonary medicine C. difficile infection. s/p oral vancomycin x 14 days. Anemia. Likely anemia of chronic disease. Patient with CKD stage IV. Hemoglobin stable. Transfused 2 units PRBC Treated with oral iron. Right leg wound. Podiatry consulted. Recommended calcium alginate with silver dressing every 3 days. Elevate legs at all times. Recommend follow-up with Dr. Read at the wound center after discharge. Acute Hypoxemic respiratory failure-Improved Improved s/p Thoracentesis s/p Solu Medrol and Treated with Lasix Maintain oxygen saturation above 92% Pt Condition on Discharge: Stable Discharge Disposition: Disch w/ Home Health Serv Discharge Time: > 30 minutes Discharge Instructions DIET: Follow Instructions for: Diabetic Diet Activities you can perform: Regular-No Restrictions Follow up Referrals: Cardiology PCP Follow-up - 1 Week Podiatry Pulmonology New Medications: Albuterol 18 GM Inh (Ventolin Hfa 18 GM Inh) 90 Mcg/Act Aer 2 PUFF INH Q4-6H PRN for SHORTNESS OF BREATH, #1 INHALER 3 Refills Ipratropium HFA 12.9 GM Inh (Atrovent HFA 12.9 GM Inh) 17 Mcg/Actuation Aer 2 PUFF INH Q6HR PRN for SHORTNESS OF BREATH, #1 INHALER 3 Refills Carvedilol (Coreg) 6.25 Mg Tab 6.25 MG PO Q12HR for Blood Pressure Management, #60 TAB 3 Refills Doxazosin (Cardura) 2 Mg Tab 2 MG PO DAILY for Blood Pressure Management, #30 TAB 3 Refills Doxazosin (Cardura) 2 Mg Tab 2 MG PO DAILY for Blood Pressure Management, #30 TAB 3 Refills Ferrous Sulfate (Ferosul) 325 Mg (65 Mg Iron) Tablet 325 MG PO BID for Immunosuppression, #60 MG 3 Refills Furosemide (Furosemide) 40 Mg Tab 40 MG PO BID@09,18 for Prevent Heart Failure, #60 TAB 3 Refills Hydralazine HCl (Hydralazine HCl) 50 Mg Tablet 75 MG PO Q8HR for Blood Pressure Management, #90 MG 3 Refills Insulin Detemir Inj (Levemir Inj) 1,000 unit/ 10 ML Vial 5 UNITS SQ Q12HR for Blood Sugar Management, #100 INJECTION 3 Refills Do not mix with any other Insulin. Nifedipine ER 24 HR (Nifedipine ER 24 HR) 30 Mg Tab 30 MG PO Q12HR for Blood Pressure Management, #60 TAB 3 Refills Spironolactone (Aldactone) 25 Mg Tab 12.5 MG PO DAILY for Prevent Heart Failure, #30 TAB 3 Refills Continued Medications: Acetaminophen (Tylenol) 325 Mg Tab 325 MG PO Q4H PRN for PAIN SCALE 1 TO 5, TAB 0 Refills Aspirin (Aspirin) 81 Mg Chew 81 MG CHEW DAILY, TAB 0 Refills Atorvastatin (Atorvastatin) 40 Mg Tab 40 MG PO HS for Cholesterol Management, #30 TAB 2 Refills Clonidine (Catapres) 0.1 Mg Tab 0.1 MG PO Q6H PRN for Uncontrolled Blood Pressure, #30 TAB Hydrocodone-Acetaminophen (Hydrocodone-Acetaminophen) 5-325 mg Tab 1 TAB PO Q6H PRN for PAIN, TAB 0 Refills Insulin Aspart Inj (Novolog Inj) 100 Unit/Ml Inj 1 UNITS SQ ACHS SLIDING SCALE for Blood Sugar Management for 30 Days, INJECTION Sliding Scale As Directed.150-199 1 Unit; 200-249 3 units; 250-299 5 Units; 300-349 7 Units; Ipratropium-Albuterol Neb (Duoneb) 0.5-2.5 Mg/3 Ml Neb 1 NEBULE INH Q4HR NEB for SHORTNESS OF BREATH, #120 NEBULE 1 Refill Isosorbide Mononitrate ER (Isosorbide Mononitrate ER) 60 Mg Tab 60 MG PO DAILY for Prevent Chest Pain, #30 TAB 0 Refills Prasugrel (Effient) 10 Mg Tab 10 MG PO DAILY for Blood Clot Prevention, #30 TAB 0 Refills Zinc Sulfate (Orazinc) 220 Mg (50 Mg Zinc) Cap 220 MG PO DAILY for Nutritional Supplement Discontinued Medications: Amlodipine (Norvasc) 10 Mg Tab 10 MG PO DAILY for Blood Pressure Management, #30 TAB Furosemide (Lasix) 40 Mg Tab 40 MG PO DAILY, #30 TAB 0 Refills Insulin Detemir Inj (Levemir Inj) 1,000 unit/ 10 ML Vial 15 UNITS SQ Q12H for Blood Sugar Management for 30 Days, INJECTION Do not mix with any other Insulin. Lactobacillus Acidophilus (Lactobacillus Acidophilus) 1 Billion Cell Tab 1 TAB PO TIDAC for Nutritional Supplement, #30 TAB 0 Refills Levofloxacin (Levaquin) 750 Mg Tablet 750 MG PO DAILY for Infection, #4 TAB 0 Refills Metolazone (Metolazone) 2.5 Mg Tab 2.5 MG PO DAILY, #30 TAB 0 Refills Metoprolol Tartrate (Metoprolol Tartrate) 50 Mg Tab 50 MG PO BID, #60 TAB 0 Refills Metronidazole (Flagyl) 500 Mg Tab 500 MG PO TID for Infection, #90 TAB Je Morales MD Jan 20, 2018 10:43
[2018-01-20] MEDS ORDERED: FUROSEMIDE 40 MG TAB PO SCH (18:00)
== END 2018-01-20 12:04 | disposition home health service (06) | DRG 871 ==
LOC: NEPC 07:46 → NEDA 10:34 → HIMN 11:40 → N04A 01-05 00:25
PROVIDERS: ADMIT Internal Medicine; ATTEND Hospitalist
PROC: 0W9B3ZX Drainage of Left Pleural Cavity, Percutaneous Approach, Diagnostic (ICD-10-PCS; principal; 2018-01-07)
PROC: 30233N1 Transfusion of Nonautologous Red Blood Cells into Peripheral Vein, Percutaneous Approach (ICD-10-PCS; 2018-01-08)
PROC: 0W993ZZ Drainage of Right Pleural Cavity, Percutaneous Approach (ICD-10-PCS; 2018-01-12)
PROC: 0W9B3ZZ Drainage of Left Pleural Cavity, Percutaneous Approach (ICD-10-PCS; 2018-01-13)
DX: A41.1 Sepsis due to other specified staphylococcus (principal); J96.01 Acute respiratory failure with hypoxia; I50.33 Acute on chronic diastolic (congestive) heart failure; E43 Unspecified severe protein-calorie malnutrition; J91.8 Pleural effusion in other conditions classified elsewhere; A04.71 Enterocolitis due to Clostridium difficile, recurrent; N17.9 Acute kidney failure, unspecified; I13.0 Hypertensive heart and chronic kidney disease with heart failure and stage 1 through stage 4 chronic kidney disease, or unspecified chronic kidney disease; N18.4 Chronic kidney disease, stage 4 (severe); I42.9 Cardiomyopathy, unspecified; L97.219 Non-pressure chronic ulcer of right calf with unspecified severity; E11.649 Type 2 diabetes mellitus with hypoglycemia without coma; R68.0 Hypothermia, not associated with low environmental temperature; E11.22 Type 2 diabetes mellitus with diabetic chronic kidney disease; D50.9 Iron deficiency anemia, unspecified; E78.5 Hyperlipidemia, unspecified; I25.10 Atherosclerotic heart disease of native coronary artery without angina pectoris; J44.9 Chronic obstructive pulmonary disease, unspecified; R53.1 Weakness; R00.1 Bradycardia, unspecified; I25.2 Old myocardial infarction; R60.1 Generalized edema; H81.10 Benign paroxysmal vertigo, unspecified ear; R94.6 Abnormal results of thyroid function studies; I87.8 Other specified disorders of veins; E11.21 Type 2 diabetes mellitus with diabetic nephropathy; R41.82 Altered mental status, unspecified; F12.10 Cannabis abuse, uncomplicated; Z95.5 Presence of coronary angioplasty implant and graft; Z87.891 Personal history of nicotine dependence; Z79.4 Long term (current) use of insulin; Z68.31 Body mass index [BMI] 31.0-31.9, adult; Z88.5 Allergy status to narcotic agent
CPT/HCPCS: 32555; 36430; 36600; 51702; 70450; 71045; 74176; 76604; 76775; 76937; 80048; 80053; 80069; 80202; 80307; 81001; 82140; 82150; 82272; 82533; 82550; 82570; 82728; 82805; 82945; 82947; 82948; 83540; 83550; 83605; 83615; 83735; 83880; 83986; 84100; 84157; 84300; 84439; 84443; 84480; 84484; 85025; 85027; 85610; 85652; 86140; 86403; 86850; 86900; 86901; 86920; 87015; 87040; 87070; 87077; 87086; 87102; 87116; 87186; 87205; 87206; 87493; 87641; 88112; 89051; 93005; 93306; 94640; 94664; 96361; 96374; 96375; C1729; J0360; J0461; J0696; J0878; J1205; J1644; J1720; J1815; J1940; J2405; J2543; J2765; J2920; J3370; J7030; J7040; J7042; J7050; J7644; P9016; P9047

== ENCOUNTER 2018-03-03 02:55 | Inpatient (IN) | payer MEDICARE, BC ==
[2018-03-03] VITALS (15 sets, daily range): BP systolic 125–153; BP diastolic 65–80; PULSE 51–65; RESP 16–28; TEMP 97.6–98.3; O2SAT 88–100
[~2018-03-03] VITALS: Ht 162.6 cm; Wt 74.5 kg
[~2018-03-03 02:55] MED LIST changes: -AMLO10 PO; +CARD2TAB PO; +CARV6.25 PO; +FERR325T20 PO; -FURO1TAB60 PO; +FURO40TA PO; +HYDR-3516 PO; +HYDR-3800 PO; +IPRA17I INH; -LACTTAB8 PO; -LEVA750T9 PO; -METO2.5T PO; -METO50TA PO; -METR-1 PO; +NIFE30TA8 PO; +SPIR25 PO; +VENTAER INH
--- NOTE | 2018-03-03 03:11 | PD ---
HPI Chief Complaint: Respiratory Distress Time Seen by Provider: 03:02 Travel History International Travel<30 days: No Contact w/Intl Traveler<30days: No Traveled to known affect area: No History of Present Illness HPI Patient is a 67-year-old female with a history of CHF COPD and CKD presents emergency department for evaluation of shortness of breath gradually worsening over the past 5 days. Patient states that she has had been admitted for this several times in the past and frequently had to have fluid drained off of her lung. Per EMS the patient was found at home on her home 3 L of oxygen only satting about 85%. She was placed on nonrebreather and transported the emergency department. Patient denies any chest pain abdominal pain nausea vomiting diarrhea constipation but does endorse significant leg swelling which is gradually getting worse for her over the past few weeks. She has never been on dialysis before. Symptoms are moderate to severe, context as above, associated signs and symptoms as above, duration as above PFSH Past Medical History Hx Anticoagulant Therapy: Yes (ASPIRIN ) Anemia: Yes (iron deficiency) Arthritis: Yes Asthma: Yes Anxiety: No Depression: No Heart Rhythm Problems: No Cancer: No Cardiovascular Problems: Yes High Cholesterol: Yes Chemotherapy: No Chest Pain: No Congestive Heart Failure: Yes COPD: Yes Cerebrovascular Accident: No Coronary Artery Disease: Yes Diabetes: Yes Patient Takes Glucophage: No Diminished Hearing: No Endocrine: No Gastrointestinal Disorders: Yes (c-diff) GERD: No Genitourinary: No Headaches: No Hepatitis: No Hiatal Hernia: Yes Hypertension: Yes Immune Disorder: No Implanted Vascular Access Dvce: Yes Kidney Stones: No Medical other: No Musculoskeletal: Yes Neurologic: Yes Psychiatric: No Reproductive: Yes Respiratory: Yes Immunizations Current: Yes Migraines: Yes Myocardial Infarction: Yes Radiation Therapy: No Renal Failure: No Seizures: No Sleep Apnea: No Thyroid Disease: No Ulcer: No Tetanus Vaccination: < 5 Years Influenza Vaccination: Yes Menopausal: Yes : 1 Para: 1 Miscarriage: 0 Past Surgical History Abdominal Surgery: Yes (APPENDECTOMY) AICD: No Appendectomy: Yes Body Medical Devices: CARDIAC STENTS X3 Cardiac Surgery: Yes (STENT PLACEMENT) Section: Yes Coronary Stent: Yes (3 stents) Ear Surgery: No Endocrine Surgery: No Eye Surgery: No Genitourinary Surgery: No Gynecologic Surgery: Yes Hysterectomy: Yes Neurologic Surgery: No Oral Surgery: Yes (TONSILS) Pacemaker: No Thoracic Surgery: No Tonsillectomy: Yes (ADENOIDS) Other Surgery: Yes (LEFT WRIST GANGLION CYST) Social History Alcohol Use: No Tobacco Use: No (QUIT 2001) Substance Use: No Allergies-Medications (Allergen,Severity, Reaction): Coded Allergies: propoxyphene (Verified Allergy, Mild, RASH, 03/03/18) Reported Meds & Prescriptions Reported Meds & Active Scripts Active Ventolin Hfa 18 GM Inh (Albuterol Sulfate) 90 Mcg/Act Aer 2 Puff INH Q4-6H PRN Atrovent HFA 12.9 GM Inh (Ipratropium [place]) 17 Mcg/Actuation Aer 2 Puff INH Q6HR PRN Levemir Inj (Insulin Detemir) 1,000 unit/ 10 ML Vial 5 Units SQ Q12HR Do not mix with any other Insulin. Furosemide 40 Mg Tab 40 Mg PO BID@ Nifedipine ER 24 HR (Nifedipine) 30 Mg Tab 30 Mg PO Q12HR Aldactone (Spironolactone) 25 Mg Tab 12.5 Mg PO DAILY Coreg (Carvedilol) 6.25 Mg Tab 6.25 Mg PO Q12HR Cardura (Doxazosin Mesylate) 2 Mg Tab 2 Mg PO DAILY Cardura (Doxazosin Mesylate) 2 Mg Tab 2 Mg PO DAILY Hydralazine HCl 50 Mg Tablet 75 Mg PO Q8HR Ferosul (Ferrous Sulfate) 325 Mg (65 Mg Iron) Tablet 325 Mg PO BID Catapres (Clonidine) 0.1 Mg Tab 0.1 Mg PO Q6H PRN Atorvastatin (Atorvastatin Calcium) 40 Mg Tab 40 Mg PO HS Duoneb (Ipratropium-Albuterol Neb) 0.5-2.5 Mg/3 Ml Neb 1 Nebule INH Q4HR NEB Isosorbide Mononitrate ER (Isosorbide Mononitrate) 60 Mg Tab 60 Mg PO DAILY Novolog Inj (Insulin Aspart) 100 Unit/Ml Inj 1 Units SQ ACHS SLIDING SCALE 30 Days Sliding Scale As Directed.150-199 1 Unit; 200-249 3 units; 250-299 5 Units; 300-349 7 Units; Reported Hydrocodone-Acetaminophen 5-325 mg Tab 1 Tab PO Q6H PRN Tylenol (Acetaminophen) 325 Mg Tab 325 Mg PO Q4H PRN Effient (Prasugrel) 10 Mg Tab 10 Mg PO DAILY Aspirin 81 Mg Chew 81 Mg CHEW DAILY Review of Systems Except as stated in HPI: all other systems reviewed are Neg Physical Exam Narrative GENERAL: Well-developed well-nourished, tripod position tachypneic. SKIN: Focused skin assessment warm/dry. HEAD: Atraumatic. Normocephalic. EYES: Pupils equal and round. No scleral icterus. No injection or drainage. ENT: No nasal bleeding or discharge. Mucous membranes pink and moist. NECK: Trachea midline. No JVD. CARDIOVASCULAR: Regular rate and rhythm. No murmur appreciated. RESPIRATORY: Tachypnea, appears short of breath, breath sounds decreased on the left side, rales throughout all lung garcia. GASTROINTESTINAL: Abdomen soft, non-tender, nondistended. Hepatic and splenic margins not palpable. MUSCULOSKELETAL: No obvious deformities. No clubbing. No cyanosis. Significant edema pitting all the way up to her hips, bilaterally equal. There is some edema on her dominant wall peer NEUROLOGICAL: Awake and alert. No obvious cranial nerve deficits. Motor grossly within normal limits. Normal speech. PSYCHIATRIC: Appropriate mood and affect; insight and judgment normal. Data Data Last Documented VS Vital Signs Date Time Temp Pulse Resp B/P (MAP) Pulse Ox O2 Delivery O2 Flow Rate FiO2 03/03/18 04:10 65 26 147/67 (93) 99 Non-Rebreather 03/03/18 02:58 98.3 Orders Orders Electrocardiogram (03/03/18 03:02) B-Type Natriuretic Peptide (03/03/18 03:02) Ckmb (Isoenzyme) Profile (03/03/18 03:02) Complete Blood Count With Diff (03/03/18 03:02) Comprehensive Metabolic Panel (03/03/18 03:02) Magnesium (Mg) (03/03/18 03:02) Prothrombin Time / Inr (Pt) (03/03/18 03:02) Act Partial Throm Time (Ptt) (03/03/18 03:02) Troponin I (03/03/18 03:02) Chest, Single Ap (03/03/18 03:02) Ecg Monitoring (03/03/18 03:02) Iv Access Insert/Monitor (03/03/18 03:02) Oximetry (03/03/18 03:02) Oxygen Administration (03/03/18 03:02) Sodium Chloride 0.9% Flush (Ns Flush) (03/03/18 03:15) Furosemide Inj (Lasix Inj) (03/03/18 03:15) Type And Screen (03/03/18 03:41) Red Blood Cells (Rbc) (03/03/18 03:41) Blood Product Administration (03/03/18 03:41) Sodium Chlor 0.9% 250 Ml Inj (Ns 250 Ml (03/03/18 03:45) CKMB (03/03/18 03:20) CKMB% (03/03/18 03:20) Blood Gas Venous (Vbg) (03/03/18 04:12) Admit Order (Ed Use Only) (03/03/18 ) Labs Laboratory Tests Test 03/03/18 03:20 White Blood Count 4.2 TH/MM3 Red Blood Count 2.10 MIL/MM3 Hemoglobin 6.5 GM/DL Hematocrit 19.3 % Mean Corpuscular Volume 91.6 FL Mean Corpuscular Hemoglobin 31.1 PG Mean Corpuscular Hemoglobin Concent 33.9 % Red Cell Distribution Width 17.1 % Platelet Count 253 TH/MM3 Mean Platelet Volume 8.5 FL Neutrophils (%) (Auto) 69.1 % Lymphocytes (%) (Auto) 20.1 % Monocytes (%) (Auto) 7.7 % Eosinophils (%) (Auto) 2.1 % Basophils (%) (Auto) 1.0 % Neutrophils # (Auto) 2.9 TH/MM3 Lymphocytes # (Auto) 0.9 TH/MM3 Monocytes # (Auto) 0.3 TH/MM3 Eosinophils # (Auto) 0.1 TH/MM3 Basophils # (Auto) 0.0 TH/MM3 CBC Comment DIFF FINAL Differential Comment Prothrombin Time 10.2 SEC Prothromb Time International Ratio 1.0 RATIO Activated Partial Thromboplast Time 27.1 SEC Blood Urea Nitrogen 87 MG/DL Creatinine 3.06 MG/DL Random Glucose 100 MG/DL Total Protein 6.7 GM/DL Albumin 2.5 GM/DL Calcium Level 8.4 MG/DL Magnesium Level 2.2 MG/DL Alkaline Phosphatase 160 U/L Aspartate Amino Transf (AST/SGOT) 30 U/L Alanine Aminotransferase (ALT/SGPT) 38 U/L Total Bilirubin 0.2 MG/DL Sodium Level 146 MEQ/L Potassium Level 5.5 MEQ/L Chloride Level 116 MEQ/L Carbon Dioxide Level 21.1 MEQ/L Anion Gap 9 MEQ/L Estimat Glomerular Filtration Rate 15 ML/MIN Total Creatine Kinase 118 U/L Creatine Kinase MB 8.2 NG/ML Troponin I LESS THAN 0.02 NG/ML B-Type Natriuretic Peptide 741 PG/ML MDM Medical Decision Making Medical Screen Exam Complete: Yes Emergency Medical Condition: Yes Differential Diagnosis CHF, kidney failure, pleural effusion, pneumonia seems unlikely, electrolyte abnormality, anasarca. Narrative Course Patient was room to the emergency department, signs and symptoms consistent with severe CHF exacerbation. She has anasarca this and significant swelling. Pleural effusion on the left confirm a chest x-ray, she also has pulmonary edema on the right side, she saturating well and is able to give me her entire history however the patient is significantly tachypneic and I had suggested her to be on noninvasive positive pressure ventilation and she adamantly refused. She is willing to be intubated should the need arise. She was given 80 mg of Lasix found to be anemic and had orders for 2 units of PRBCs. Troponin negative , electrolytes do show some mild hyperkalemia but there is no evidence of hyperkalemia changes on EKG. Patient was discussed at length with Dr. Hook who was seen and evaluated the patient is happy to admit but to the intensive care unit. Patient was admitted in serious condition Critical Care Narrative Aggregate critical care time was 35 minutes. Time to perform other separately billable procedures was not included in the critical care time. My time did not include minutes spent treating any other patients simultaneously or on activities that did not directly contribute to the patient's treatment. The services I provided to this patient were to treat and/or prevent clinically significant deterioration that could result in: , disability, organ failure I provided critical care services requiring my management, as noted below: Chart data review, documentation time, medication orders and management, vital sign assessments/reviewing monitor data, ordering and reviewing lab tests, ordering and interpreting/reviewing x-rays and diagnostic studies, care of the patient and discussion of the patient with the admitting physicians. Diagnosis Primary Impression: Acute respiratory failure with hypoxia Additional Impressions: Anasarca CHF exacerbation Admitting Information Admitting Physician Requests: Admit Condition: Serious Linwood Sweeney MD Mar 03, 2018 03:11
[2018-03-03] MEDS ORDERED: SODIUM CHLORIDE 0.9% FLUSH 10 ML FLUSH IVF PRN (03:15)
[2018-03-03] MEDS ORDERED: FUROSEMIDE 100 MG/10 ML VIAL IV PUSH ONE (03:15)
[2018-03-03 03:34] LABS: AUTOMATED NEUTROPHIL # 2.9 TH/MM3 (1.8-7.7); EOSINOPHIL # 0.1 TH/MM3 (0-0.4); EOSINOPHIL % 2.1 % (0.0-4.0); LYMPH % 20.1 % (9.0-44.0); LYMPHOCYTE # 0.9 TH/MM3 (1.0-4.8); MEAN CELL VOLUME 91.6 FL (80.0-100.0); MEAN CORPUSCULAR HEMOGLOBIN 31.1 PG (27.0-34.0); MEAN CORPUSCULAR HGB CONC 33.9 % (32.0-36.0); MEAN PLATELET VOLUME 8.5 FL (7.0-11.0); MONO % 7.7 % (0.0-8.0); MONOCYTE # 0.3 TH/MM3 (0-0.9); NEUT % 69.1 % (16.0-70.0); PLATELET COUNT 253 TH/MM3 (150-450); RED CELL DISTRIBUTION WIDTH 17.1 % (11.6-17.2); WHITE BLOOD COUNT 4.2 TH/MM3 (4.0-11.0)
[2018-03-03 03:41] LABS: HEMATOCRIT 19.3 % (35.0-46.0); HEMOGLOBIN 6.5 GM/DL (11.6-15.3)
--- NOTE | 2018-03-03 03:41 | RADRPT ---
EXAM DATE/TIME: 03/03/2018 03:31 [facility] COMPARISON: CHEST EXPIRATION ONLY, January 13, 2018, 15:41. INDICATIONS : Shortness of breath, difficulty breathing for 3 days MEDICAL HISTORY : Hypercholesterolemia. Myocardial infarction. Congestive heart failure. Coronary artery disease. Antic oagulant therapy. Atrial fibrillation. COPD. Asthma. SURGICAL HISTORY : Coronary artery stent. ENCOUNTER: Initial ACUITY: 3 days PAIN SCORE: 5/10 LOCATION: Bilateral chest FINDINGS: Large left pleural effusion. Small right effusion. Extensive edema or consolidative change in the per ihilar regions and lung bases. Cardiac silhouette is largely obscured. CONCLUSION: Probable CHF. Large left pleural effusion. Rafa Gates MD on March 03, 2018 at 3:38 Board Certified Radiologist. This report was verified electronically.
[2018-03-03] MEDS ORDERED: SODIUM CHLOR 0.9% 250 ML INJ 250 ML IV ONE (03:45)
[2018-03-03 03:48] LABS: ALBUMIN 2.5 GM/DL (3.4-5.0); ALT (GPT) 38 U/L (10-53); AST (GOT) 30 U/L (15-37); BICARBONATE 21.1 MEQ/L (21.0-32.0); BLOOD UREA NITROGEN 87 MG/DL (7-18); CALCIUM 8.4 MG/DL (8.5-10.1); CHLORIDE 116 MEQ/L (98-107); CREATININE 3.06 MG/DL (0.50-1.00); GLOMERULAR FILTRATION RATE 15 ML/MIN (>89); GLUCOSE,RANDOM 100 MG/DL (74-106); MAGNESIUM 2.2 MG/DL (1.5-2.5); PROTHROMBIN TIME - PATIENT 10.2 SEC (9.8-11.6); SODIUM (NA) 146 MEQ/L (136-145)
[2018-03-03 03:52] LABS: ALKALINE PHOSPHATASE 160 U/L (45-117); TOTAL BILIRUBIN ADULT 0.2 MG/DL (0.2-1.0); TOTAL PROTEIN 6.7 GM/DL (6.4-8.2); TROPONIN I LESS THAN 0.02 NG/ML (0.02-0.05)
[2018-03-03] MEDS ORDERED: LACTULOSE SYRUP 20 GM/30 ML CUP PO PRN (04:45)
[2018-03-03] MEDS ORDERED: NALOXONE HCL 0.4 MG/ML AMP IV PUSH PRN (04:45)
[2018-03-03] MEDS ORDERED: SENNOSIDES 8.6 MG TAB PO PRN (04:45)
[2018-03-03] MEDS ORDERED: BISACODYL 10 MG SUPP RECTAL PRN (04:45)
[2018-03-03] MEDS ORDERED: ACETAMINOPHEN 325 MG TAB PO PRN (04:45)
[2018-03-03] MEDS ORDERED: SODIUM CHLORIDE 0.9% FLUSH 10 ML FLUSH IV FLUSH PRN (04:45)
[2018-03-03] MEDS ORDERED: MAGNESIUM HYDROXIDE SUSP 30 ML CUP PO PRN (04:45)
[2018-03-03] MEDS ORDERED: DEXTROSE 50% IN WATER 50 ML VIAL(D50) IV PUSH PRN (05:00)
[2018-03-03] MEDS ORDERED: GLUCAGON 1 MG/ML VIAL OTHER PRN (05:00)
[2018-03-03] MEDS ORDERED: PILL SPLITTER OTHER PRN (05:00)
[2018-03-03] MEDS ORDERED: RESP: ALBUTEROL 2.5 MG/IPRATROPIUM 0.5 MG NEB (PRN) NEB (05:00)
--- NOTE | 2018-03-03 05:01 | HHI.HP ---
HPI Service [facility] Primary Care Physician Unknown Admission Diagnosis Anasarca, Left pleural effusion, Hypoxic Respiratory failure. Diagnoses: Travel History International Travel<30 Days: No Contact w/Intl Traveler <30 Da: No Traveled to Known Affected Are: No History of Present Illness 67-year-old female with a past medical history significant for CHF (last echo on 01/03/18 with an EF of 55-60%"), chronic kidney disease, diabetes mellitus, COPD, hyperlipidemia and hypertension since the emergency department for evaluation of shortness of breath. The patient reports she has had worsening shortness of breath since Wednesday that has made it very difficult for her to breathe. She also reports an increase in her bilateral lower extremity edema that has worsened since Wednesday. She complains of weakness and fatigue and has a history of anemia requiring blood transfusions and states her last transfusion was in December of this year. Positive headache. No chest pain/ pressure. No nausea/vomiting/diarrhea. No palatal pain. No lateralizing signs /symptoms. Review of Systems Except as stated in HPI: all other systems reviewed are Neg Past Family Social History Past Medical History Hypertension Hyperlipidemia CHF She daily Diabetes mellitus COPD Past Surgical History Hysterectomy L4 laminectomy Tonsillectomy Reported Medications Reported Meds & Active Scripts Active Ventolin Hfa 18 GM Inh (Albuterol Sulfate) 90 Mcg/Act Aer 2 Puff INH Q4-6H PRN Atrovent HFA 12.9 GM Inh (Ipratropium [place]) 17 Mcg/Actuation Aer 2 Puff INH Q6HR PRN Levemir Inj (Insulin Detemir) 1,000 unit/ 10 ML Vial 5 Units SQ Q12HR Do not mix with any other Insulin. Furosemide 40 Mg Tab 40 Mg PO BID@09,18 Nifedipine ER 24 HR (Nifedipine) 30 Mg Tab 30 Mg PO Q12HR Aldactone (Spironolactone) 25 Mg Tab 12.5 Mg PO DAILY Coreg (Carvedilol) 6.25 Mg Tab 6.25 Mg PO Q12HR Cardura (Doxazosin Mesylate) 2 Mg Tab 2 Mg PO DAILY Cardura (Doxazosin Mesylate) 2 Mg Tab 2 Mg PO DAILY Hydralazine HCl 50 Mg Tablet 75 Mg PO Q8HR Ferosul (Ferrous Sulfate) 325 Mg (65 Mg Iron) Tablet 325 Mg PO BID Catapres (Clonidine) 0.1 Mg Tab 0.1 Mg PO Q6H PRN Atorvastatin (Atorvastatin Calcium) 40 Mg Tab 40 Mg PO HS Duoneb (Ipratropium-Albuterol Neb) 0.5-2.5 Mg/3 Ml Neb 1 Nebule INH Q4HR NEB Isosorbide Mononitrate ER (Isosorbide Mononitrate) 60 Mg Tab 60 Mg PO DAILY Novolog Inj (Insulin Aspart) 100 Unit/Ml Inj 1 Units SQ ACHS SLIDING SCALE 30 Days Sliding Scale As Directed.150-199 1 Unit; 200-249 3 units; 250-299 5 Units; 300-349 7 Units; Reported Hydrocodone-Acetaminophen 5-325 mg Tab 1 Tab PO Q6H PRN Tylenol (Acetaminophen) 325 Mg Tab 325 Mg PO Q4H PRN Effient (Prasugrel) 10 Mg Tab 10 Mg PO DAILY Aspirin 81 Mg Chew 81 Mg CHEW DAILY Allergies: Coded Allergies: propoxyphene (Verified Allergy, Mild, RASH, 03/03/18) Family History Negative for CAD/DM Social History Denies alcohol, tobacco and illicit drugs. Physical Exam Vital Signs Vital Signs Date Time Temp Pulse Resp B/P (MAP) Pulse Ox O2 Delivery O2 Flow Rate FiO2 03/03/18 04:10 65 26 147/67 (93) 99 Non-Rebreather 03/03/18 03:10 28 03/03/18 03:10 97 Non-Rebreather 03/03/18 03:05 62 03/03/18 02:58 98.3 64 28 143/65 (91) 99 Physical Exam GENERAL: female sitting up in bed in moderate distress SKIN: No rashes, ecchymoses or lesions. Cool and dry. HEAD: Atraumatic. Normocephalic. No temporal or scalp tenderness. EYES: Pupils equal round and reactive. Extraocular motions intact. No scleral icterus. No injection or drainage. ENT: Nose without bleeding, purulent drainage or septal hematoma. Throat without erythema, tonsillar hypertrophy or exudate. Uvula midline. Airway patent. NECK: Trachea midline. No JVD or lymphadenopathy. Supple, nontender, no meningeal signs. CARDIOVASCULAR: Regular rate and rhythm without murmurs, gallops, or rubs. RESPIRATORY: Left lower lung with absent breath sounds. No wheezes/rales/ rhonchi. GASTROINTESTINAL: Abdomen soft, non-tender, nondistended. No hepato-splenomegaly , or palpable masses. No guarding. MUSCULOSKELETAL: 2+ bilateral lower extremity edema that extends up to the thighs NEUROLOGICAL: Awake and alert. Cranial nerves II through XII intact. Motor and sensory grossly within normal limits. Normal speech. Laboratory Laboratory Tests Test 03/03/18 03:20 White Blood Count 4.2 Red Blood Count 2.10 Hemoglobin 6.5 Hematocrit 19.3 Mean Corpuscular Volume 91.6 Mean Corpuscular Hemoglobin 31.1 Mean Corpuscular Hemoglobin Concent 33.9 Red Cell Distribution Width 17.1 Platelet Count 253 Mean Platelet Volume 8.5 Neutrophils (%) (Auto) 69.1 Lymphocytes (%) (Auto) 20.1 Monocytes (%) (Auto) 7.7 Eosinophils (%) (Auto) 2.1 Basophils (%) (Auto) 1.0 Neutrophils # (Auto) 2.9 Lymphocytes # (Auto) 0.9 Monocytes # (Auto) 0.3 Eosinophils # (Auto) 0.1 Basophils # (Auto) 0.0 CBC Comment DIFF FINAL Differential Comment Prothrombin Time 10.2 Prothromb Time International Ratio 1.0 Activated Partial Thromboplast Time 27.1 Blood Urea Nitrogen 87 Creatinine 3.06 Random Glucose 100 Total Protein 6.7 Albumin 2.5 Calcium Level 8.4 Magnesium Level 2.2 Alkaline Phosphatase 160 Aspartate Amino Transf (AST/SGOT) 30 Alanine Aminotransferase (ALT/SGPT) 38 Total Bilirubin 0.2 Sodium Level 146 Potassium Level 5.5 Chloride Level 116 Carbon Dioxide Level 21.1 Anion Gap 9 Estimat Glomerular Filtration Rate 15 Total Creatine Kinase 118 Creatine Kinase MB 8.2 Troponin I LESS THAN 0.02 B-Type Natriuretic Peptide 741 Result Diagram: 03/03/18 0320 03/03/18 0320 Caprini VTE Risk Assessment Caprini VTE Risk Assessment: Mod/High Risk (score >= 2) Caprini Risk Assessment Model Point Value = 1 Point Value = 2 Point Value = 3 Point Value = 5 Age 41-60 Minor surgery BMI > 25 kg/m2 Swollen legs Varicose veins or History of unexplained or recurrent spontaneous Oral contraceptives or hormone replacement Sepsis (< 1 month) Serious lung disease, including pneumonia (< 1 month) Abnormal pulmonary function Acute myocardial infarction Congestive heart failure (< 1 month) History of inflammatory bowel disease Medical patient at bed rest Age 61-74 Arthroscopic surgery Major open surgery (> 45 min) Laparoscopic surgery (> 45 min) Malignancy Confined to bed (> 72 hours) Immobilizing plaster cast Central venous access Age >= 75 History of VTE Family history of VTE Factor V Leiden Prothrombin [id number] Lupus anticoagulant Anticardiolipin antibodies Elevated serum homocysteine Heparin-induced thrombocytopenia Other congenital or acquired thrombophilia Stroke (< 1 month) Elective arthroplasty Hip, pelvis, or leg fracture Acute spinal cord injury (< 1 month) Prophylaxis Regimen Total Risk Factor Score Risk Level Prophylaxis Regimen 0-1 Low Early ambulation 2 Moderate Order ONE of the following: *Sequential Compression Device (SCD) *Heparin 5000 units SQ BID 3-4 Higher Order ONE of the following medications: *Heparin 5000 units SQ TID *Enoxaparin/Lovenox 40 mg SQ daily (WT < 150 kg, CrCl > 30 mL/min) *Enoxaparin/Lovenox 30 mg SQ daily (WT < 150 kg, CrCl > 10-29 mL/min) *Enoxaparin/Lovenox 30 mg SQ BID (WT < 150 kg, CrCl > 30 mL/min) AND/OR *Sequential Compression Device (SCD) 5 or more Highest Order ONE of the following medications: *Heparin 5000 units SQ TID (Preferred with Epidurals) *Enoxaparin/Lovenox 40 mg SQ daily (WT < 150 kg, CrCl > 30 mL/min) *Enoxaparin/Lovenox 30 mg SQ daily (WT < 150 kg, CrCl > 10-29 mL/min) *Enoxaparin/Lovenox 30 mg SQ BID (WT < 150 kg, CrCl > 30 mL/min) AND *Sequential Compression Device (SCD) Assessment and Plan Assessment and Plan Assessment/plan: 1. Shortness of breath Patient with history of COPD, CHF and previous pleural effusions Chest x-ray significant for large left-sided pleural effusion Interventional radiology consulted for thoracentesis IV Lasix Duo nebs Supplemental oxygen as needed VBG pending Patient refuses BiPAP however wishes to be intubated if necessary 2. Symptomatic anemia H&H 6.5/19.3 Transfuse 2 units packed red blood cells 3. Chronic kidney disease Creatinine 3.06, baseline Nephrology consulted as patient volume overloaded with elevated creatinine Appreciate nephrology recommendations 4. COPD/CHF Plan as above 5. Diabetes mellitus Sliding scale insulin Monitor blood glucose 6. Hypertension/hyperlipidemia Patient on multiple antihypertensive medications, continue Continue home statin 7. Hyperkalemia IV Lasix Follow-up BMP FEN Heart healthy, diabetic diet Electrolytes: As above Holding pharmacologic anticoagulation in anticipation of thoracentesis Physician Certification 2 Midnight Certification Type: Admission for Inpatient Services Order for Inpatient Services The services are ordered in accordance with Medicare regulations or non- Medicare payer requirements, as applicable. In the case of services not specified as inpatient-only, they are appropriately provided as inpatient services in accordance with the 2-midnight benchmark. Estimated LOS (days): 2 2 days is the estimated time the patient will need to remain in the hospital, assuming treatment plan goals are met and no additional complications. Post-Hospital Plan: Not yet determined Venita Hook MD Mar 03, 2018 05:01
[2018-03-03] MEDS: ISOSORBIDE MONONITRATE 60 MG CR TAB (IMDUR) PO SCH (06:39)
[2018-03-03] MEDS: hydrALAZINE HCL 25 MG TAB PO SCH (06:39)
[2018-03-03] MEDS ORDERED: CHLORHEXIDINE GLUCONATE 2 % 1 PACK (2 CLOTHS)(extra cloths) TOPICAL PRN (06:45)
[2018-03-03] MEDS: DOXAZOSIN MESYLATE 2 MG TAB PO SCH (07:57)
[2018-03-03] MEDS: DOCUSATE SODIUM 50 MG/SENNA 8.6 MG TAB PO SCH ×2 (07:57→21:53)
[2018-03-03] MEDS: FERROUS SULFATE 325 MG (65 MG ELEMENTAL IRON) TAB PO SCH ×2 (07:58→21:53)
[2018-03-03] MEDS: SODIUM CHLORIDE 0.9% FLUSH 10 ML FLUSH IV FLUSH SCH ×2 (07:58→21:55)
[2018-03-03] MEDS: NIFEdipine 30 MG SUSTAINED RELEASE TAB PO SCH ×2 (07:58→22:00)
[2018-03-03] MEDS: INSULIN ASPART SUPPLEMENTAL SCALE SQ SCH ×4 (08:00→21:00)
[2018-03-03] MEDS ORDERED: FUROSEMIDE 40 MG/4 ML VIAL IV PUSH SCH ×2 (09:00→17:00)
[2018-03-03] MEDS ORDERED: SPIRONOLACTONE 25 MG TAB PO SCH (09:00)
[2018-03-03] MEDS ORDERED: CARVEDILOL 6.25 MG TAB PO SCH (09:00)
[2018-03-03] MEDS: ONDANSETRON HCL 4 MG/2 ML VIAL IVP PRN (09:12)
--- NOTE | 2018-03-03 10:14 | PD.CONS ---
HPI Service Nephrology Consult Requested By Dr. Hook Reason for Consult CKD and volume overload Primary Care Physician Unknown History of Present Illness Patient is a 67 year old female with past medical history of Diabetes mellitus, hypertension, arthritis, hyperlipidemia, ischemic heart disease, diastolic CHF, and chronic kidney disease stage IV. Patient presented to ED with worsening shortness of breath since Wednesday and increased in bilateral lower extremity edema. She complains of weakness, fatigue, nausea, headache, dizziness, anxiety , and pain in lower extremity. Nephrology was consulted for chronic kidney disease with acute worsening and fluid overload. Patients creatine is found to be 3.06 with a GFR of 15 ml/min. Potassium level of 5.5. Patient baseline creatinine is has been running at 2.1 to 2.5 in 11/14. This is a known patient of Dr. Toro. (Jessica Clemons) Review of Systems Constitutional: COMPLAINS OF: Fatigue, Dizziness Respiratory: COMPLAINS OF: Shortness of breath Cardiovascular: COMPLAINS OF: Dyspnea on Exertion, Lower Extremity Edema Gastrointestinal: COMPLAINS OF: Nausea Musculoskeletal: COMPLAINS OF: Joint pain Psychiatric: COMPLAINS OF: Anxiety (Jessica Clemons) Past Family Social History Allergies: Coded Allergies: propoxyphene (Verified Allergy, Mild, RASH, 03/03/18) Past Medical History Hypertension Hyperlipidemia CKD Diastolic CHF Diabetes mellitus COPD Arthirits Past Surgical History Hysterectomy L4 laminectomy Tonsillectomy Appendectomy Multiple cardiac cath with stent placement C -section Active Ordered Medications Current Medications Medications (Trade) Dose Ordered Sig/Marie Route Start Time Stop Time Status Last Admin (NS Flush) 2 ml UNSCH PRN IVF 03/03/18 03:15 Sodium Chloride 250 ml @ 15 mls/hr ONCE ONCE IV 03/03/18 03:45 03/03/18 20:24 03/03/18 05:55 (Lasix Inj) 40 mg BID@,18 IV PUSH 03/03/18 09:00 03/03/18 07:59 (NS Flush) 2 ml UNSCH PRN IV FLUSH 03/03/18 04:45 (NS Flush) 2 ml BID IV FLUSH 03/03/18 09:00 03/03/18 07:58 (Tylenol) 650 mg Q4H PRN PO 03/03/18 04:45 (Zofran Inj) 4 mg Q6H PRN IVP 03/03/18 04:45 03/03/18 09:12 (Narcan Inj) 0.4 mg UNSCH PRN IV PUSH 03/03/18 04:45 (Jocelyn-Colace) 1 tab BID PO 03/03/18 09:00 03/03/18 07:57 (Milk Of Magnesia Liq) 30 ml Q12H PRN PO 03/03/18 04:45 (Senokot) 17.2 mg Q12H PRN PO 03/03/18 04:45 (Dulcolax Supp) 10 mg DAILY PRN RECTAL 03/03/18 04:45 (Lactulose Liq) 30 ml DAILY PRN PO 03/03/18 04:45 (Duoneb Neb) 1 ampule Q4HR NEB PRN NEB 03/03/18 05:00 03/03/18 09:04 (Lipitor) 40 mg HS PO 03/03/18 21:00 (Coreg) 6.25 mg Q12HR PO 03/03/18 09:00 03/03/18 07:57 (Catapres) 0.1 mg Q6H PRN PO 03/03/18 05:00 (Cardura) 2 mg DAILY PO 03/03/18 09:00 03/03/18 07:57 (Ferrous Sulfate) 325 mg BID PO 03/03/18 09:00 03/03/18 07:58 (Apresoline) 75 mg Q8HR PO 03/03/18 06:00 03/03/18 06:39 (Imdur) 60 mg DAILY@0700 PO 03/03/18 07:00 03/03/18 06:39 (Procardia Xl) 30 mg Q12HR PO 03/03/18 09:00 03/03/18 07:58 (D50w (Vial) Inj) 50 ml UNSCH PRN IV PUSH 03/03/18 05:00 (Glucagon Inj) 1 mg UNSCH PRN OTHER 03/03/18 05:00 (NovoLOG SUPPLEMENTAL SCALE) 1 ACHS SLIDING SCALE SQ 03/03/18 08:00 (Pill Splitter) 1 ea UNSCH PRN OTHER 03/03/18 05:00 Miscellaneous Information Patient in critical care unit? Ass... Q361D .XX 03/03/18 06:45 03/03/18 06:45 (Chlorhexidine 2% Cloth) 3 pack DAILY@04 TOPICAL 03/04/18 04:00 03/08/18 04:01 (Chlorhexidine 2% Cloth) 3 pack UNSCH PRN TOPICAL 03/03/18 06:45 03/08/18 06:41 (Xanax) 0.5 mg Q8H PRN PO 03/03/18 09:45 UNV Family History Mother with Multiple sclerosis Father with colon cancer No history of kidney disease Social History Former smoker quit 15 years ago Denies ETOH or ilicit drug use Lives with and Daughter (Jessica ClemonsMabel PETERSON) Physical Exam Vital Signs Vital Signs Date Time Temp Pulse Resp B/P (MAP) Pulse Ox O2 Delivery O2 Flow Rate FiO2 03/03/18 06:00 56 03/03/18 05:54 55 20 136/80 (98) 99 03/03/18 05:25 03/03/18 05:24 98.1 61 22 153/72 100 03/03/18 04:10 65 26 147/67 (93) 99 Non-Rebreather 03/03/18 03:10 28 03/03/18 03:10 97 Non-Rebreather 03/03/18 03:05 62 03/03/18 02:58 98.3 64 28 143/65 (91) 99 Physical Exam GENERAL: Frail, alert and oriented. Anxious SKIN: Warm and dry. HEAD: Normocephalic. EYES: No scleral icterus. No injection or drainage. NECK: Supple, trachea midline. No JVD or lymphadenopathy. CARDIOVASCULAR: Regular rate and rhythm without murmurs, gallops, or rubs. RESPIRATORY: Breath sounds diminished. No accessory muscle use. On nonrebreather GASTROINTESTINAL: Abdomen soft, non-tender, nondistended. MUSCULOSKELETAL: No cyanosis. Moderate lower extremity edema BACK: Nontender without obvious deformity. No CVA tenderness. Laboratory Laboratory Tests Test 03/03/18 03:20 03/03/18 05:00 03/03/18 07:14 White Blood Count 4.2 Red Blood Count 2.10 Hemoglobin 6.5 Hematocrit 19.3 Mean Corpuscular Volume 91.6 Mean Corpuscular Hemoglobin 31.1 Mean Corpuscular Hemoglobin Concent 33.9 Red Cell Distribution Width 17.1 Platelet Count 253 Mean Platelet Volume 8.5 Neutrophils (%) (Auto) 69.1 Lymphocytes (%) (Auto) 20.1 Monocytes (%) (Auto) 7.7 Eosinophils (%) (Auto) 2.1 Basophils (%) (Auto) 1.0 Neutrophils # (Auto) 2.9 Lymphocytes # (Auto) 0.9 Monocytes # (Auto) 0.3 Eosinophils # (Auto) 0.1 Basophils # (Auto) 0.0 CBC Comment DIFF FINAL Differential Comment Prothrombin Time 10.2 Prothromb Time International Ratio 1.0 Activated Partial Thromboplast Time 27.1 Blood Urea Nitrogen 87 Creatinine 3.06 Random Glucose 100 Total Protein 6.7 Albumin 2.5 Calcium Level 8.4 Magnesium Level 2.2 Alkaline Phosphatase 160 Aspartate Amino Transf (AST/SGOT) 30 Alanine Aminotransferase (ALT/SGPT) 38 Total Bilirubin 0.2 Sodium Level 146 Potassium Level 5.5 Chloride Level 116 Carbon Dioxide Level 21.1 Anion Gap 9 Estimat Glomerular Filtration Rate 15 Total Creatine Kinase 118 Creatine Kinase MB 8.2 Troponin I LESS THAN 0.02 B-Type Natriuretic Peptide 741 Blood Gas Puncture Site PIV Blood Gas Patient Temperature 98.6 Venous Blood pH 7.22 Venous Blood Partial Pressure CO2 53 Venous Blood Partial Pressure O2 30 Venous Blood HCO3 21 Venous Blood Oxygen Saturation 41 Venous Blood Oxygen Content 3.8 Venous Blood Base Excess -6.0 Oxygen Delivery Device NRB Blood Gas Liter Flow 15 Blood Gas Inspired Oxygen 100 (Jessica Clemons) Result Diagram: 03/03/18 0320 03/03/18 0320 Imaging Last Impressions Chest X-Ray 03/03/18 0302 Signed Impressions: Service Date/Time: February 03:31 - CONCLUSION: Probable CHF. Large left pleural effusion. Rafa Gates MD (Jessica Clemons) Assessment and Plan Problem List: (1) Chronic kidney disease (CKD) stage G4/A1, severely decreased glomerular filtration rate (GFR) between 15-29 mL/min/1.73 square meter and albuminuria creatinine ratio less than 30 mg/g ICD Codes: N18.4 - Chronic kidney disease, stage 4 (severe) Plan: Acute kidney injury with a creatinine of 3.06 and GFR of 15 ml/min from possible pre renal vs ATN Patient with history of Chronic kidney disease related to hypertension or diabetic renal disease. Patients baseline creatinine at 2.1-2.5 in October 2017 Patient is in fluid overload status Potassium level elevated at 5.5 lasix given. Plan Spirolactone discontinued secondary to hyperkalemia Continue lasix BID Will monitor BMP and UOP Avoid nephrotoxins as possible Renal dose antibiotics Labs and urine studies ordered (2) Diastolic CHF, acute ICD Codes: I50.31 - Acute diastolic (congestive) heart failure Plan: Plan for thoracentesis today. (3) Anemia ICD Codes: D64.9 - Anemia, unspecified Plan: HGB at 6.8 Transfused PRBC (Jessica Clemons) Problem List: (1) Chronic kidney disease (CKD) stage G4/A1, severely decreased glomerular filtration rate (GFR) between 15-29 mL/min/1.73 square meter and albuminuria creatinine ratio less than 30 mg/g ICD Codes: N18.4 - Chronic kidney disease, stage 4 (severe) Plan: Acute kidney injury with a creatinine of 3.06 and GFR of 15 ml/min from possible pre renal vs ATN Patient with history of Chronic kidney disease related to hypertension or diabetic renal disease. Patients baseline creatinine at 2.1-2.5 in October 2017 Patient is in fluid overload status Potassium level elevated at 5.5 lasix given. Plan Spirolactone discontinued secondary to hyperkalemia Continue lasix BID Will monitor BMP and UOP Avoid nephrotoxins as possible Renal dose antibiotics Labs and urine studies ordered. Patient seen and examined, agree with above. Has Pleural effusion and Thoracentesis done. Continue diuresis, and follow the urine out put and BMP. (2) Diastolic CHF, acute ICD Codes: I50.31 - Acute diastolic (congestive) heart failure Plan: Plan for thoracentesis today. (3) Anemia ICD Codes: D64.9 - Anemia, unspecified Plan: HGB at 6.8 Transfused PRBC (Flavio Toro MD) Jessica Clemons Mar 03, 2018 10:13 Flavio Toro MD Mar 03, 2018 18:43
[2018-03-03] MEDS: ALPRAZolam 0.5 MG TAB PO PRN (10:15)
[2018-03-03] MEDS ORDERED: ATROPINE SULFATE 1 MG/10 ML SYRINGE ONE (13:07)
--- NOTE | 2018-03-03 13:22 | PD.PROCEDR ---
Procedure Note Procedure Procedure: US guided Left Thoracentesis Indication: Large left pleural effusion, respiratory failure, Hypoxia A time-out was completed verifying correct patient, procedure, site, positioning , and special equipment if applicable. The patients left side was prepped and draped in a sterile manner after the appropriate infiltration level was confirmed and marked by ultrasound. 1% lidocaine was used anesthetize the surrounding skin. A 10-blade scalpel used to make the incision. The thoracentesis Angio cath was then introduced without difficulty and needle was removed. Catheter was connected to Vacutainer bottle and 1600 ml slightly straw- colored fluid was removed. A post-procedure chest x-ray was ordered and the fluid will be sent for several studies. Estimated Blood Loss: <2 ml, The patient tolerated the procedure well and there were no immediate complications. CXR pending at this time Jordon Craig MD Mar 03, 2018 13:22
--- NOTE | 2018-03-03 13:26 | PD.CONS ---
[facility] Service Critical Care Medicine Consult Requested By Yasmeen Lomas Reason for Consult Acute on chronic hypoxemic respiratory failure Large left pleural effusion CHF exacerbation, probably diastolic COPD with acute exacerbation Acute on chronic kidney failure Anemia requiring transfusion Primary Care Physician Unknown History of Present Illness Patient is a 67-year-old female with past medical history of COPD on home oxygen 3L, CHF, probable diastolic heart failure (echo on 01/03/18 EF of 55- 60%), chronic kidney disease with baseline creatinine 2.5-3, chronic anemia, diabetes mellitus, was admitted to the hospitalist service yesterday with increasing shortness of breath likely secondary to CHF exacerbation. She also reported increase in her bilateral lower extremity edema. Chest x-ray showed congestive heart failure and large left pleural effusion. Patient was placed on IV diuretics breathing treatments and admitted to ICU under hospitalist. Since a.m. today patient had been having increasing shortness of breath and increasing oxygen requirement. Due to hypoxia she was placed on 100% nonrebreather. Critical care medicine was consulted for acute hypoxemic respiratory failure I immediately evaluated the patient. She appeared to be in moderate to severe respiratory distress, tachypneic oxygen saturation barely 90% on 100% nonrebreather. Bedside ultrasound showed large left pleural effusion. I emergently did a thoracentesis and removed 1.6 L of clear straw-colored pleural fluid with improvement in oxygen saturation. Fluid studies are pending at this time. Will give IV Solu Medrol 100 mg 1 and 40 every 12. Scheduled breathing treatments. Starts Spiriva and Symbicort. Empiric cefepime for COPD exacerbation. Continue IV Lasix but increase dose to 40 mg every 8 hours, and additional 40 mg x1 IV now. Patient had hemoglobin 6.5 today and was given 2 units of PRBC. She reports history of chronic anemia also patient's father of colon cancer age of [address] 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 Will consult GI once her respiratory status stabilizes. Review of Systems ROS Limitations: Clinical Condition (respiratory distress) Past Family Social History Allergies: Coded Allergies: propoxyphene (Verified Allergy, Mild, RASH, 03/03/18) Past Medical History Recurrent pleural effusion, had thoracentesis before Hypertension Hyperlipidemia CHF Diabetes mellitus COPD Coronary artery disease with history of stent Father of colon cancer at the age of 40 Patient had EGD colonoscopy 2 years ago Chronically anemic Past Surgical History Hysterectomy L4 laminectomy Tonsillectomy Thoracentesis, Dec 2017 Reported Medications Ventolin Hfa 18 GM Inh (Albuterol Sulfate) 90 Mcg/Act Aer 2 Puff INH Q4-6H PRN Atrovent HFA 12.9 GM Inh (Ipratropium [place]) 17 Mcg/Actuation Aer 2 Puff INH Q6HR PRN Levemir Inj (Insulin Detemir) 1,000 unit/ 10 ML Vial 5 Units SQ Q12HR Furosemide 40 Mg Tab 40 Mg PO BID@ Nifedipine ER 24 HR (Nifedipine) 30 Mg Tab 30 Mg PO Q12HR Aldactone (Spironolactone) 25 Mg Tab 12.5 Mg PO DAILY Coreg (Carvedilol) 6.25 Mg Tab 6.25 Mg PO Q12HR Cardura (Doxazosin Mesylate) 2 Mg Tab 2 Mg PO DAILY Cardura (Doxazosin Mesylate) 2 Mg Tab 2 Mg PO DAILY Hydralazine HCl 50 Mg Tablet 75 Mg PO Q8HR Ferosul (Ferrous Sulfate) 325 Mg (65 Mg Iron) Tablet 325 Mg PO BID Catapres (Clonidine) 0.1 Mg Tab 0.1 Mg PO Q6H PRN Atorvastatin (Atorvastatin Calcium) 40 Mg Tab 40 Mg PO HS Duoneb (Ipratropium-Albuterol Neb) 0.5-2.5 Mg/3 Ml Neb 1 Nebule INH Q4HR NEB Isosorbide Mononitrate ER (Isosorbide Mononitrate) 60 Mg Tab 60 Mg PO DAILY Novolog Inj (Insulin Aspart) SSI Hydrocodone-Acetaminophen 5-325 mg Tab 1 Tab PO Q6H PRN Tylenol (Acetaminophen) 325 Mg Tab 325 Mg PO Q4H PRN Effient (Prasugrel) 10 Mg Tab 10 Mg PO DAILY Aspirin 81 Mg Chew 81 Mg CHEW DAILY Active Ordered Medications Reviewed Family History Negative for coronary artery disease Father of colon cancer at the age of 40 Mother had multiple sclerosis Social History Denies alcohol or tobacco use currently Heavy smoker until age of 51 Used to binge drink but quit about 20 years ago Physical Exam Vital Signs Vital Signs Date Time Temp Pulse Resp B/P (MAP) Pulse Ox O2 Delivery O2 Flow Rate FiO2 03/03/18 06:00 56 03/03/18 05:54 55 20 136/80 (98) 99 4/5/18 05:25 03/03/18 05:24 98.1 61 22 153/72 100 03/03/18 04:10 65 26 147/67 (93) 99 Non-Rebreather 03/03/18 03:10 28 03/03/18 03:10 97 Non-Rebreather 03/03/18 03:05 62 03/03/18 02:58 98.3 64 28 143/65 (91) 99 Physical Exam GENERAL: female lying in bed in severe distress hypoxic on 100% nonrebreather SKIN: No rashes, ecchymoses or lesions. Cool and dry. HEAD: Atraumatic. Normocephalic. EYES: Pupils equal round and reactive. Extraocular motions intact. ENT: Uvula midline. Airway patent. NECK: Trachea midline. No JVD or lymphadenopathy. CARDIOVASCULAR: Bradycardic rate and rhythm without murmurs, gallops, or rubs. RESPIRATORY: Left lower lung with greatly diminished breath sounds. Few expiratory wheezes send Rales right lung field GASTROINTESTINAL: Abdomen soft, non-tender, nondistended. No hepato-splenomegaly , or palpable masses. No guarding. MUSCULOSKELETAL: 2+ bilateral lower extremity edema that extends up to the thighs. Surgical scar right lower leg from previous dog bite repair NEUROLOGICAL: Awake and alert. Motor and sensory grossly within normal limits. Normal speech. Limited exam due to respiratory distress Laboratory Laboratory Tests Test 03/03/18 03:20 03/03/18 05:00 03/03/18 07:14 White Blood Count 4.2 Red Blood Count 2.10 Hemoglobin 6.5 Hematocrit 19.3 Mean Corpuscular Volume 91.6 Mean Corpuscular Hemoglobin 31.1 Mean Corpuscular Hemoglobin Concent 33.9 Red Cell Distribution Width 17.1 Platelet Count 253 Mean Platelet Volume 8.5 Neutrophils (%) (Auto) 69.1 Lymphocytes (%) (Auto) 20.1 Monocytes (%) (Auto) 7.7 Eosinophils (%) (Auto) 2.1 Basophils (%) (Auto) 1.0 Neutrophils # (Auto) 2.9 Lymphocytes # (Auto) 0.9 Monocytes # (Auto) 0.3 Eosinophils # (Auto) 0.1 Basophils # (Auto) 0.0 CBC Comment DIFF FINAL Differential Comment Prothrombin Time 10.2 Prothromb Time International Ratio 1.0 Activated Partial Thromboplast Time 27.1 Blood Urea Nitrogen 87 Creatinine 3.06 Random Glucose 100 Total Protein 6.7 Albumin 2.5 Calcium Level 8.4 Magnesium Level 2.2 Alkaline Phosphatase 160 Aspartate Amino Transf (AST/SGOT) 30 Alanine Aminotransferase (ALT/SGPT) 38 Total Bilirubin 0.2 Sodium Level 146 Potassium Level 5.5 Chloride Level 116 Carbon Dioxide Level 21.1 Anion Gap 9 Estimat Glomerular Filtration Rate 15 Total Creatine Kinase 118 Creatine Kinase MB 8.2 Troponin I LESS THAN 0.02 B-Type Natriuretic Peptide 741 Blood Gas Puncture Site PIV Blood Gas Patient Temperature 98.6 Venous Blood pH 7.22 Venous Blood Partial Pressure CO2 53 Venous Blood Partial Pressure O2 30 Venous Blood HCO3 21 Venous Blood Oxygen Saturation 41 Venous Blood Oxygen Content 3.8 Venous Blood Base Excess -6.0 Oxygen Delivery Device NRB Blood Gas Liter Flow 15 Blood Gas Inspired Oxygen 100 Nasal Screen MRSA (PCR) MRSA DETECTED Result Diagram: 03/03/18 0320 03/03/18 0320 Imaging CXR shows congestive heart failure, large left pleural effusion Septic Shock Reassessment Septic shock perfusion: reassessment completed Assessment and Plan Assessment and Plan ASSESSMENT: Acute on chronic hypoxemic respiratory failure Large left pleural effusion CHF exacerbation, probably diastolic COPD with acute exacerbation Acute on chronic kidney failure Anemia requiring transfusion Chronic artery disease status post stent Hypertension Dyslipidemia COPD on home oxygen 3 L PLAN: NEURO: -Xanax when necessary for anxiety -Add Lortab 7.5/325 mg q6hr PRN for chronic pain RESP: -Status post emergency left thoracentesis with 1.6 L straw-colored fluid removed -Start DuoNeb every 4 hours scheduled and when necessary -Add Symbicort and Spiriva -BiPAP when necessary, EzPap acapella ordered -Empiric cefepime for COPD exacerbation -And short pulmonary Dr. Blankenship who is her leave specialist CV: -Chest x-ray and BNP elevation consistent with CHF exacerbation probably diastolic heart failure -Continue home antihypertensives. Resume Effient tomorrow -IV Lasix increase dose to 40 every 8 hours with additional 40 mg now -If diuresis is not adequate patient may need hemodialysis for fluid removal given acute on chronic kidney injury -Previous 2-D echo revealed EF 55% in Dec 2017 GI: -Heart healthy, renal diet once respiratory distress improves -Pepcid for GI prophylaxis : -Monitor renal function closely. Lim catheter. Nephrology Dr. Toro following -IV Lasix 40 mg additional dose and increase to 40 every 8 hours -Strict intake output monitor CMP daily ID: -Check sputum culture, empiric cefepime HEME: -Monitor CBC, CMP, coags ENDO: -Monitor closely for hyperkalemia PROPH: -Bilateral lower extremity SCDs. Start heparin 5000 units subcutaneous every 12. Famotidine for GI prophylaxis LINES: -Utilize peripheral IVs, central line if needed CC time 35 min excluding procedures Critically ill 67-year-old female with history of CHF diastolic dysfunction, and COPD exacerbation now with acute exacerbation of CHF and hypoxemic respiratory failure most likely secondary to severe large pleural effusions. Some improvement after emergent thoracentesis and removal of 1.6 L. Continue ICU care Code Status Full Discussed Condition With Say Toro and Jordon Prieto MD Mar 03, 2018 13:26
[2018-03-03] MEDS ORDERED: methylPREDNISolone SOD SUCC 125 MG/2 ML VIAL IV PUSH ONE (13:45)
--- NOTE | 2018-03-03 13:56 | RADRPT ---
EXAM DATE/TIME: 03/03/2018 13:34 [facility] COMPARISON: CHEST SINGLE AP, March 03, 2018, 3:31. INDICATIONS : Post thoracentesis. MEDICAL HISTORY : Hypercholesterolemia. Myocardial infarction. Congestive heart failure. Coronary artery disease. Antic oagulant therapy. Atrial fibrillation. COPD. Asthma. SURGICAL HISTORY : Coronary artery stent. ENCOUNTER: Subsequent ACUITY: 1 day PAIN SCORE: Non-responsive. LOCATION: Bilateral chest FINDINGS: The exam demonstrates significant interval reduction in the size of the patient's left pleural effusi on. There are atelectatic changes in the left lung base. There is a smaller effusion on the right. Th e heart is enlarged. There is diffuse interstitial prominence suggesting congestive failure. The bony structures are grossly intact. CONCLUSION: 1. Post left thoracentesis. No pneumothorax is identified. There is significant reduction in the volu me of pleural fluid on the left. 2. Congestive failure. Wally Trimble MD on March 03, 2018 at 13:53 Board Certified Radiologist. This report was verified electronically.
[2018-03-03] MEDS ORDERED: FUROSEMIDE 40 MG/4 ML VIAL IV PUSH STA (13:58)
--- NOTE | 2018-03-03 14:00 | EKG ---
Date Performed: 03/03/2018 Time Performed: 02:58:00 PTAGE: 67 years EKG: Sinus rhythm NORMAL ECG Since the PREVIOUS TRACING , no significant change noted PREVIOUS TRACIN12/28/2017 07.58 DOCTOR: Tisha Edgar Interpretating Date/Time 03/03/2018 13:59:03
[2018-03-03 15:08] LABS: TOTAL PROTEIN,PLEURAL FLUID 1.9 GM/DL
[2018-03-03 15:28] LABS: PLEURAL FLUID HISTIOCYTES 10 %; PLEURAL FLUID LYMPHS 57 %; PLEURAL FLUID MESOTHELIAL 1 %; PLEURAL FLUID MONOS 24 %; PLEURAL FLUID POLYS (SEGS) 8 %
[2018-03-03 15:29] LABS: PLEURAL FLUID RBC 410 /MM3 (0-0); PLEURAL FLUID WBC 68 /MM3 (0-10)
[2018-03-03] MEDS: CEFEPIME INJ 1,000 MG in SODIUM CHLORIDE 0.9% INJ 100 ML IV SCH (16:30)
[2018-03-03] MEDS: RESP: ALBUTEROL 2.5 MG/IPRATROPIUM 0.5 MG NEB (SCH) NEB ×3 (17:10→23:40)
[2018-03-03 17:34] LABS: AUTOMATED NEUTROPHIL # 2.7 TH/MM3 (1.8-7.7); BASOPHIL % 0.6 % (0.0-2.0); EOSINOPHIL % 1.2 % (0.0-4.0); HEMATOCRIT 27.2 % (35.0-46.0); HEMOGLOBIN 9.1 GM/DL (11.6-15.3); LYMPH % 12.9 % (9.0-44.0); LYMPHOCYTE # 0.4 TH/MM3 (1.0-4.8); MEAN CORPUSCULAR HGB CONC 33.3 % (32.0-36.0); MEAN PLATELET VOLUME 8.5 FL (7.0-11.0); MONO % 2.9 % (0.0-8.0); MONOCYTE # 0.1 TH/MM3 (0-0.9); NEUT % 82.4 % (16.0-70.0); PLATELET COUNT 249 TH/MM3 (150-450); RED BLOOD COUNT 3.02 MIL/MM3 (4.00-5.30); RED CELL DISTRIBUTION WIDTH 18.2 % (11.6-17.2); WHITE BLOOD COUNT 3.2 TH/MM3 (4.0-11.0)
[2018-03-03] MEDS: BUDESONIDE-FORMOTEROL 160/4.5 MCG INHALER INH SCH ×2 (17:50→21:55)
[2018-03-03] MEDS: TIOTROPIUM BROMIDE 18 MCG INH INH SCH (17:50)
[2018-03-03 17:58] LABS: ALBUMIN 2.4 GM/DL (3.4-5.0); ALT (GPT) 44 U/L (10-53); AST (GOT) 46 U/L (15-37); BICARBONATE 20.9 MEQ/L (21.0-32.0); BLOOD UREA NITROGEN 88 MG/DL (7-18); CALCIUM 8.4 MG/DL (8.5-10.1); CHLORIDE 115 MEQ/L (98-107); CREATININE 2.97 MG/DL (0.50-1.00); GLOMERULAR FILTRATION RATE 16 ML/MIN (>89); GLUCOSE,RANDOM 74 MG/DL (74-106); SODIUM (NA) 145 MEQ/L (136-145)
[2018-03-03 18:10] LABS: ALKALINE PHOSPHATASE 153 U/L (45-117); TOTAL BILIRUBIN ADULT 0.4 MG/DL (0.2-1.0); TOTAL PROTEIN 6.6 GM/DL (6.4-8.2)
[2018-03-03] MEDS ORDERED: NON-FORMULARY DRUG IV ONE (18:45)
[2018-03-03] MEDS: HEPARIN SODIUM - SQ 10,000 UNITS/ML VIAL SQ SCH (21:53)
[2018-03-03] MEDS: FAMOTIDINE 20 MG TAB PO SCH (21:54)
[2018-03-03] MEDS: ATORVASTATIN 40 MG TAB PO SCH (21:54)
[2018-03-04] VITALS (36 sets, daily range): BP systolic 130–198; BP diastolic 57–81; PULSE 56–78; RESP 7–26; TEMP 97.7–98.4; O2SAT 75–100
[2018-03-04] MEDS: methylPREDNISolone SOD SUCC 125 MG/2 ML VIAL IV PUSH SCH ×2 (02:00→14:31)
[2018-03-04] MEDS: CHLORHEXIDINE GLUCONATE 2 % 1 PACK (2 CLOTHS)(taper/protocol) TOPICAL SCH (04:00)
[2018-03-04] MEDS: CEFEPIME INJ 1,000 MG in SODIUM CHLORIDE 0.9% INJ 100 ML IV SCH ×2 (04:00→17:19)
[2018-03-04] MEDS: RESP: ALBUTEROL 2.5 MG/IPRATROPIUM 0.5 MG NEB (SCH) NEB ×5 (04:04→20:34)
[2018-03-04 05:27] LABS: AUTOMATED NEUTROPHIL # 2.4 TH/MM3 (1.8-7.7); BASOPHIL % 0.3 % (0.0-2.0); EOSINOPHIL % 0.1 % (0.0-4.0); HEMOGLOBIN 9.8 GM/DL (11.6-15.3); LYMPH % 8.7 % (9.0-44.0); LYMPHOCYTE # 0.2 TH/MM3 (1.0-4.8); MEAN CORPUSCULAR HEMOGLOBIN 30.4 PG (27.0-34.0); MEAN CORPUSCULAR HGB CONC 33.7 % (32.0-36.0); MEAN PLATELET VOLUME 8.4 FL (7.0-11.0); MONO % 0.7 % (0.0-8.0); NEUT % 90.2 % (16.0-70.0); PLATELET COUNT 265 TH/MM3 (150-450); RED BLOOD COUNT 3.22 MIL/MM3 (4.00-5.30); RED CELL DISTRIBUTION WIDTH 18.7 % (11.6-17.2); WHITE BLOOD COUNT 2.7 TH/MM3 (4.0-11.0)
--- NOTE | 2018-03-04 05:49 | RADRPT ---
EXAM DATE/TIME: 03/04/2018 04:19 [facility] COMPARISON: CHEST SINGLE AP, March 03, 2018, 13:34. INDICATIONS : Respiratory disease. MEDICAL HISTORY : Hypercholesterolemia. Myocardial infarction. Congestive heart failure. Coronary artery disease. Antic oagulant therapy. Atrial fibrillation. COPD. Asthma. SURGICAL HISTORY : Coronary artery stent. ENCOUNTER: Subsequent ACUITY: 2 days PAIN SCORE: Non-responsive. LOCATION: Bilateral chest FINDINGS: Single AP view of the chest. Increased bilateral lower lung predominant confluent pulmonary parenchym al opacity and bilateral small to moderate-sized pleural effusions. Enlarged cardiac silhouette uncha nged. No evidence of pneumothorax. CONCLUSION: Increased, fairly symmetric bilateral pulmonary parenchymal opacity, bilateral pleural effusions, and cardiac silhouette enlargement. Constellation of findings favor cardiogenic pulmonary edema. Dwain Estevez MD on March 04, 2018 at 5:45 Board Certified Radiologist. This report was verified electronically.
[2018-03-04 05:57] LABS: BICARBONATE 19.3 MEQ/L (21.0-32.0); CALCIUM 8.6 MG/DL (8.5-10.1); CREATININE 3.08 MG/DL (0.50-1.00)
[2018-03-04] MEDS: ISOSORBIDE MONONITRATE 60 MG CR TAB (IMDUR) PO SCH (07:00)
--- NOTE | 2018-03-04 08:56 | MB ---
cc: Aaron Blankenship MD DATE: 03/03/2018 REQUESTING PHYSICIAN: Dr. Jordon Craig REASON FOR CONSULTATION: Pulmonary management. HISTORY OF PRESENT ILLNESS: Ms. Maynard is a 67-year-old female who is known to me from the previous admission. She has a history of congestive heart failure, recent drug-eluting stent, COPD. She is oxygen dependent. She came to the hospital with worsening of her shortness of her breath. The patient was found to have a large pleural effusion. She was on 100% oxygen. She was transferred to the intensive care unit. She had a thoracentesis done, about 600 mL of fluid was removed. Currently, she is on nonrebreather mask and she is a little more comfortable. She has no chest pain. No fever, chills. No night sweats. She had workup done, her CBC showed WBC count 3.2, hemoglobin 9.1, hematocrit 27.2, MCV 90, platelet count 249. Sodium 140, potassium 5.9, chloride, 115, BUN 88, creatinine 2.97 and bicarbonate 20.9. Her chest x-ray shows CHF and large left pleural effusion. PAST MEDICAL HISTORY: Significant for history of COPD, coronary artery disease, congestive heart failure, recent drug-eluting stent, hypertension, chronic kidney disease, C. difficile colitis in the past. MEDICATIONS: She is currently taking Effient 10 mg a day, Solu-Medrol 40 mg every 12 hours, Lipitor 40 mg a day, famotidine 20 mg twice a day, heparin 5000 every 12 hours, Bumex 1 mg per hour drip, Spiriva once a day, cefepime 1 gram every 12 hours, albuterol nebulizer treatment, Symbicort 160/4.5 twice a day, Xanax 0.5 mg every 8 hours, doxazosin 2 mg a day, nifedipine 30 mg every 12 hours, ferrous sulfate 325 mg twice a day, isosorbide 30 mg a day, clonidine p.r.n. ALLERGIES: SHE IS ALLERGIC TO PROPOXYPHENE. SOCIAL HISTORY: She has no history of smoking. No alcohol use. FAMILY HISTORY: Noncontributory. REVIEW OF SYSTEMS: She has no seizures, stroke, epilepsy. No DVT or pulmonary embolism. PHYSICAL EXAMINATION: GENERAL: Reveals an elderly female on rebreather mask. VITAL SIGNS: Blood pressure 136/80, heart rate 55, respirations 20, temperature 98.1. HEENT: Pupils are equal and reactive to light. Oral mucosa and nasal mucosa normal. NECK: Supple. JVP noted raised. CHEST: Decreased breath sounds at the bases. CARDIOVASCULAR: S1, S2 normal. ABDOMEN: Benign. EXTREMITIES: One plus pedal edema. IMPRESSION: 1. Congestive heart failure. 2. Respiratory failure with hypoxia. 3. Chronic obstructive pulmonary disease. 4. Pleural effusion. 5. Coronary artery disease, status post recent stent placement. 6. History of Clostridium difficile colitis. 7. Chronic kidney disease. PLAN: She is being diuresed with Bumex drip. Continue IV Solu-Medrol nonrebreather mask. The patient does not want to use BiPAP, however, she agrees to use high flow oxygen as needed as a last resort. She wants to go on a ventilator if needed. Monitor electrolytes. Continue antibiotic. She is on Effient and subcutaneous heparin. Further treatment pending the course in the hospital. Thank you, Dr. Jordon Craig for this consult. MD TRUPTI Fishman/SUSHANT , 06:14 PM , 06:50 PM STEVAN
--- NOTE | 2018-03-04 08:57 | HHI.CCPN ---
Subjective Remarks/Hospital Course Patient is a 67-year-old female with past medical history of COPD on home oxygen 3L, CHF, probable diastolic heart failure (echo on 01/03/18 EF of 55- 60%), chronic kidney disease with baseline creatinine 2.5-3, chronic anemia, diabetes mellitus, was admitted to the hospitalist service yesterday with increasing shortness of breath likely secondary to CHF exacerbation. She also reported increase in her bilateral lower extremity edema. Chest x-ray showed congestive heart failure and large left pleural effusion. Patient was placed on IV diuretics breathing treatments and admitted to ICU under hospitalist. Since a.m. today patient had been having increasing shortness of breath and increasing oxygen requirement. Due to hypoxia she was placed on 100% nonrebreather. Critical care medicine was consulted for acute hypoxemic respiratory failure. I immediately evaluated the patient. She appeared to be in moderate to severe respiratory distress, tachypneic oxygen saturation barely 90% on 100% nonrebreather. Bedside ultrasound showed large left pleural effusion. I emergently did a thoracentesis and removed 1.6 L of clear straw- colored pleural fluid with improvement in oxygen saturation. Fluid studies are pending at this time. Will give IV Solu Medrol 100 mg 1 and 40 every 12. Scheduled breathing treatments. Starts Spiriva and Symbicort. Empiric cefepime for COPD exacerbation. Continue IV Lasix but increase dose to 40 mg every 8 hours, and additional 40 mg x1 IV now. Patient had hemoglobin 6.5 today and was given 2 units of PRBC. She reports history of chronic anemia also patient's father of colon cancer age of [address]. [address] 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 Will consult GI once her respiratory status stabilizes. SUBJ 4/6: Remains critically ill hypoxemic, more acidemic and hyperkalemic. Potassium is 6.5 creatinine 3. Despite Bumex infusion, patient has developed recurrent bilateral pleural effusions. ABG 7.24/39/61 with BE -10. Hyperkalemia is being treated with 2 A of bicarb, calcium gluconate IV, IV insulin 5 units, dextrose 1 amp, and Kayexalate 30 g. Due to fluid overload hypoxemia acidosis and hyperkalemia I have contacted Dr. Toro. I will Place Vas-Cath emergently and start hemodialysis. Patient had thoracentesis with 1.6 L of pleural fluid removed from left side yesterday Objective Vital Signs Date Time Temp Pulse Resp B/P (MAP) Pulse Ox O2 Delivery O2 Flow Rate FiO2 03/04/18 08:47 92 Partial Rebreather 03/04/18 08:02 50 03/04/18 06:00 68 03/04/18 04:00 97.7 16 148/66 (93) 03/03/18 19:42 15.00 Intake and Output 03/04/18 03/04/18 03/05/18 08:00 16:00 00:00 Intake Total 0 ml Output Total 600 ml Balance -600 ml Result Diagram: 03/04/18 0452 03/04/18 0452 Other Results Laboratory Tests Test 03/04/18 08:24 Blood Gas Puncture Site RT RADIAL Blood Gas Patient Temperature 98.6 Blood Gas HCO3 16 mmol/L (22-26) Blood Gas Base Excess -10.0 mmol/L (-2-2) Blood Gas Oxygen Saturation 87 % (90-100) Arterial Blood pH 7.24 (7.380-7.420) Arterial Blood Partial Pressure CO2 39 mmHg (38-42) Arterial Blood Partial Pressure O2 61 mmHg (61-120) Arterial Blood Oxygen Content 12.0 Vol % (12.0-20.0) Arterial Blood Carboxyhemoglobin 0.9 % (0-4) Arterial Blood Methemoglobin 1.5 % (0-2) Blood Gas Hemoglobin 9.8 G/DL (12.0-16.0) Oxygen Delivery Device VENTI MASK Blood Gas Inspired Oxygen 50 % Imaging CXR shows congestive heart failure, large left pleural effusion Objective Remarks GENERAL: female lying in bed in moderate distress hypoxic SKIN: No rashes, ecchymoses or lesions. Cool and dry. HEAD: Atraumatic. Normocephalic. EYES: Pupils equal round and reactive. Extraocular motions intact. ENT: Uvula midline. Airway patent. NECK: Trachea midline. No JVD or lymphadenopathy. CARDIOVASCULAR: Normal rate and rhythm without murmurs, gallops, or rubs. RESPIRATORY: Air entry diminished bilaterally. Few expiratory wheezes send Rales right lung field GASTROINTESTINAL: Abdomen soft, non-tender, nondistended. No hepato-splenomegaly MUSCULOSKELETAL: 2+ bilateral lower extremity edema that extends up to the thighs. Surgical scar right lower leg from previous dog bite repair NEUROLOGICAL: Awake and alert. Motor and sensory grossly within normal limits. Normal speech. Limited exam due to respiratory distress A/P Assessment and Plan ASSESSMENT: Acute on chronic hypoxemic respiratory failure Large left pleural effusion Severe metabolic acidosis Hyperkalemia CHF exacerbation, probably diastolic COPD with acute exacerbation Acute on chronic kidney failure Anemia requiring transfusion Chronic artery disease status post stent Hypertension Dyslipidemia COPD on home oxygen 3 L PLAN: NEURO: -Minimize sedation. Xanax as needed for anxiety -Add Lortab 7.5/325 mg q6hr PRN for chronic pain RESP: -Status post emergency left thoracentesis with 1.6 L straw-colored fluid removed -Chest x-ray today shows reaccumulation of bilateral effusion -Please Vas-Cath for emergent hemodialysis -Continue DuoNeb every 4 hours scheduled and when necessary -Continue Symbicort and Spiriva -BiPAP when necessary, EzPap acapella ordered -Empiric cefepime for COPD exacerbation -Pulmonary Dr. Blankenship consulted CV: -Chest x-ray and BNP elevation consistent with CHF exacerbation -Increasing pleural effusions despite thoracentesis and Bumex infusion -Vas-Cath placement and hemodialysis today -Continue home antihypertensives. Resume Effient after HD catheter -Previous 2-D echo revealed EF 55% in Dec 2017. GI: -N.p.o. for invasive procedures -Pepcid for GI prophylaxis : -Discussed with Dr. Toro, Place Vas-Cath today and initiate hemodialysis -Hyperkalemia treated with, IV bicarb, IV calcium, dextrose and IV insulin, and Kayexalate. Already on scheduled breathing treatment -Monitor renal function closely. Lim catheter. -Continue Bumex infusion and bicarb infusion -Strict intake output monitor CMP daily ID: -F/U sputum culture, empiric cefepime HEME: -Monitor CBC, CMP, coags ENDO: -Treat hyperkalemia as above -SSI PROPH: -Bilateral lower extremity SCDs. Heparin 5000 units subcutaneous every 12. Famotidine for GI prophylaxis LINES: -Utilize peripheral IVs, central line if needed CC time 45 min excluding procedures Critically ill 67-year-old female with history of CHF diastolic dysfunction, and COPD exacerbation, severe hyperkalemia and metabolic acidosis. Despite Bumex infusion on thoracentesis, has reaccumulation of large pleural effusions. Start emergent HD today. At risk of acute respiratory decompensation and requiring intubation Jordon Craig MD Mar 04, 2018 08:57
[2018-03-04] MEDS: HEPARIN SODIUM - SQ 10,000 UNITS/ML VIAL SQ SCH ×2 (09:00→20:08)
[2018-03-04] MEDS ORDERED: DEXTROSE 50% IN WATER 50 ML SYRINGE IV PUSH ONE (09:00)
[2018-03-04] MEDS ORDERED: INSULIN HUMAN REGULAR 1,000 UNITS/10 ML VIAL IV PUSH ONE (09:00)
[2018-03-04] MEDS: NIFEdipine 30 MG SUSTAINED RELEASE TAB PO SCH ×2 (09:00→20:08)
[2018-03-04] MEDS: PRASUGREL 10 MG TAB PO SCH (09:00)
[2018-03-04] MEDS ORDERED: SODIUM POLYSTYRENE SULFONATE SUSP 15 GM/60 ML CUP PO ONE (09:00)
[2018-03-04] MEDS ORDERED: SODIUM BICARBONATE 8.4% INJ 100 MEQ in DEXTROSE 5% IN WATE 1000ML INJ 1,000 ML IV SCH ×2 (09:00)
[2018-03-04] MEDS: DOXAZOSIN MESYLATE 2 MG TAB PO SCH (09:00)
[2018-03-04] MEDS ORDERED: CALCIUM GLUCONATE INJ 2 GM in DEXTROSE 5% IN WATER 100ML INJ 100 ML IV ONE ×2 (09:00)
[2018-03-04] MEDS ORDERED: SODIUM BICARBONATE 8.4% INJ 50 MEQ/50 ML SYR IV PUSH ONE (09:00)
[2018-03-04] MEDS: SODIUM CHLORIDE 0.9% FLUSH 10 ML FLUSH IV FLUSH SCH ×2 (09:05→20:07)
[2018-03-04] MEDS: BUDESONIDE-FORMOTEROL 160/4.5 MCG INHALER INH SCH ×2 (09:07→20:07)
[2018-03-04] MEDS: TIOTROPIUM BROMIDE 18 MCG INH INH SCH (09:07)
[2018-03-04] MEDS ORDERED: SODIUM CHLORIDE 0.9% FLUSH 10 ML FLUSH IV FLUSH PRN (09:15)
[2018-03-04] MEDS ORDERED: ACETAMINOPHEN 325 MG TAB PO PRN (09:15)
[2018-03-04] MEDS ORDERED: ALBUMIN 25% INJ 100 ML IV PRN (09:15)
[2018-03-04] MEDS ORDERED: EPOETIN ALFA 10,000 UNITS/ML VIAL IV PUSH PRN (09:15)
[2018-03-04] MEDS ORDERED: HEPARIN SODIUM - IV 10,000 UNITS/10 ML VIAL IV FLUSH PRN (09:15)
[2018-03-04] MEDS ORDERED: ONDANSETRON HCL 4 MG/2 ML VIAL IV PUSH PRN (09:15)
[2018-03-04] MEDS ORDERED: MANNITOL 12.5 GM/50 ML VIAL IV PRN (09:15)
[2018-03-04] MEDS ORDERED: diphenhydrAMINE HCL 25 MG CAP PO PRN (09:15)
[2018-03-04] MEDS ORDERED: GELATIN 12 MM/7 MM FOAM TOP PRN (09:15)
[2018-03-04] MEDS ORDERED: NITROGLYCERIN 0.4 MG SL 25 TABS/BTL SL PRN (09:15)
[2018-03-04] MEDS ORDERED: SODIUM CHLOR 0.9% 1000 ML INJ 1,000 ML OTHER PRN ×2 (09:15)
[2018-03-04] MEDS ORDERED: SODIUM CHLOR 0.9% 1000 ML INJ 1,000 ML IV PRN (09:15)
[2018-03-04] MEDS ORDERED: MORPHINE SULFATE 2 MG/ML SYRINGE ONE (09:30)
[2018-03-04] MEDS ORDERED: LORazepam 2 MG/ML VIAL ONE (09:30)
[2018-03-04] MEDS ORDERED: MORPHINE SULFATE 2 MG/ML SYRINGE IV PUSH ONE (09:45)
[2018-03-04] MEDS ORDERED: SODIUM BICARBONATE 8.4% INJ 50 MEQ/50 ML SYR IV ONE (09:45)
[2018-03-04] MEDS ORDERED: LORazepam 2 MG/ML VIAL IV PUSH ONE (09:45)
--- NOTE | 2018-03-04 09:56 | PD.PROCEDR ---
Central Line Procedure REASON FOR PROCEDURE Central venous access PROCEDURE PERFORMED Central line placement: [facility] CONSENT Informed consent for procedure was obtained and time out performed. The risks and benefits of the procedure were discussed to include but limited to bleeding , clot formation, infection, and even . ANESTHESIA Local injection of 1% Lidocaine DESCRIPTION OF THE PROCEDURE The patient was placed in supine, mild Trendelenburg position. The area was exposed and cleansed with ChloraPrep, times two. Large sterile drape was used to cover the patient, with the site exposed, under sterile conditions including cap, face mask, sterile gown, and sterile gloves. On single attempt, the introducer needle was inserted with negative pressure in syringe and venous flash was obtained. The guide wire was then advanced without any restriction and the needle was removed. The dilator was used without any complications. Using Seldinger technique the 20 CM 14F double lumen catheter was advanced over the guide wire to a depth of 17 centimeters. The guide wire was removed. All ports were aspirated with dark venous blood return and flushed easily with sterile saline. All ports were capped. Antibiotic disc was placed around central line at puncture site. The central line was secured to the skin with two interrupted 2.0 silk sutures. The area was bandaged with sterile see- through central line bandage. RADIOLOGICAL DATA Ultrasound guidance was used to locate RIJ. Doppler/color flow was used to confirm venous flow. COMPLICATIONS: No apparent complications ESTIMATED BLOOD LOSS: Less than 1 cc. Jordon Craig MD Mar 04, 2018 09:56
--- NOTE | 2018-03-04 10:12 | HHI.NPPN ---
Subjective History of Present Illness Patient is a 67 year old female with past medical history of Diabetes mellitus, hypertension, arthritis, hyperlipidemia, ischemic heart disease, diastolic CHF, and chronic kidney disease stage IV. Patient presented to ED with worsening shortness of breath since Wednesday and increased in bilateral lower extremity edema. She complains of weakness, fatigue, nausea, headache, dizziness, anxiety , and pain in lower extremity. Nephrology was consulted for chronic kidney disease with acute worsening and fluid overload. Patients creatine is found to be 3.06 with a GFR of 15 ml/min. Potassium level of 5.5. Patient baseline creatinine is has been running at 2.1 to 2.5 in 11/14. This is a known patient of Dr. Toro (Jessica Clemons) Objective Data Data Vital Signs Date Time Temp Pulse Resp B/P (MAP) Pulse Ox O2 Delivery O2 Flow Rate FiO2 03/04/18 08:47 92 Partial Rebreather 03/04/18 08:02 89 Venturi Mask 50 03/04/18 06:00 68 03/04/18 04:00 97.7 63 16 148/66 (93) 97 03/04/18 04:00 63 03/04/18 02:00 56 03/04/18 00:00 98.0 58 18 145/63 (90) 90 03/04/18 00:00 58 03/03/18 22:00 56 03/03/18 20:00 58 03/03/18 20:00 97.8 58 17 125/79 (94) 90 03/03/18 19:42 93 Non-Rebreather 15.00 100 03/03/18 18:00 52 03/03/18 16:00 97.7 51 17 140/67 (91) 95 03/03/18 16:00 51 03/03/18 16:00 51 03/03/18 14:00 65 03/03/18 12:00 54 03/03/18 12:00 97.6 54 16 152/67 (95) 88 03/03/18 10:00 53 (Jessica Clemons) -: 03/04/18 0452 03/04/18 0452 Microbiology 03/03/18 Fungal Smear - Final, Resulted NO FUNGAL ELEMENTS SEEN. 03/03/18 Fungal Culture, Resulted Pending 03/03/18 Acid Fast Stain - Final, Resulted NO ACID FAST BACILLI SEEN 03/03/18 Mycobacterial Culture, Resulted Pending 03/03/18 Gram Stain - Final, Resulted 03/03/18 Body Fluid Culture, Resulted Pending (Jessica Clemons) Assessment/Plan Problem List: (1) Chronic kidney disease (CKD) stage G4/A1, severely decreased glomerular filtration rate (GFR) between 15-29 mL/min/1.73 square meter and albuminuria creatinine ratio less than 30 mg/g ICD Codes: N18.4 - Chronic kidney disease, stage 4 (severe) Plan: Acute kidney injury from possible pre renal vs ATN Patient with history of Chronic kidney disease related to hypertension or diabetic renal disease. Patients baseline creatinine at 2.1-2.5 in October 2017 Patient is in fluid overload status Potassium level elevated at 6.5 Thoracentesis with 1.4 liters removed Plan Hyperkalemia treated per CC dialysis today Will monitor BMP and UOP Avoid nephrotoxins as possible Renal dose antibiotics With hyperkalemia and fluid overload status will start HD vas cath placed. (2) Diastolic CHF, acute ICD Codes: I50.31 - Acute diastolic (congestive) heart failure Plan: thoracentesis yesterday with 1.4 liters removed. (3) Anemia ICD Codes: D64.9 - Anemia, unspecified Plan: Improved after PRBC Epogen with dialysis (Jessica Clemons) Problem List: (1) Chronic kidney disease (CKD) stage G4/A1, severely decreased glomerular filtration rate (GFR) between 15-29 mL/min/1.73 square meter and albuminuria creatinine ratio less than 30 mg/g ICD Codes: N18.4 - Chronic kidney disease, stage 4 (severe) Plan: Acute kidney injury from possible pre renal vs ATN Patient with history of Chronic kidney disease related to hypertension or diabetic renal disease. Patients baseline creatinine at 2.1-2.5 in October 2017 Patient is in fluid overload status Potassium level elevated at 6.5 Thoracentesis with 1.4 liters removed Plan Hyperkalemia treated per CC dialysis today Will monitor BMP and UOP Avoid nephrotoxins as possible Renal dose antibiotics With hyperkalemia and fluid overload status will start HD vas cath placed. Patient seen and examined, agree with above. HD started as K is elevated. May will need senior living HD , D/W the patient. (2) Diastolic CHF, acute ICD Codes: I50.31 - Acute diastolic (congestive) heart failure Plan: thoracentesis yesterday with 1.4 liters removed. (3) Anemia ICD Codes: D64.9 - Anemia, unspecified Plan: Improved after PRBC Epogen with dialysis (Flavio Toro MD) Jessica ClemonsP Mar 04, 2018 10:12 Flavio Toro MD Mar 04, 2018 17:39
[2018-03-04] MEDS: INSULIN ASPART SUPPLEMENTAL SCALE SQ SCH ×4 (10:20→20:08)
--- NOTE | 2018-03-04 11:24 | RADRPT ---
EXAM DATE/TIME: 03/04/2018 10:05 [facility] COMPARISON: CHEST SINGLE AP, March 04, 2018, 4:19. INDICATIONS : Vascath placement. MEDICAL HISTORY : Hypercholesterolemia. Myocardial infarction. Chronic obstructive pulmonary disease. CHF, A-fib, a sthma SURGICAL HISTORY : coronary artery stent ENCOUNTER: Initial ACUITY: 2 days PAIN SCORE: Non-responsive. LOCATION: Bilateral chest FINDINGS: Interval placement of a right internal jugular large bore catheter with the tip projected at the cavo atrial junction. No evidence of pneumothorax. Hazy opacity in the right lower lung and left lower l tanner consolidation with lateral meniscal interface characteristic of consolidation and pleural effusio n, stable in appearance to prior. CONCLUSION: Vas-Cath in good position. No evidence of pneumothorax. Dewyane Easton MD on March 04, 2018 at 11:21 Board Certified Radiologist. This report was verified electronically.
[2018-03-04] MEDS: HEPARIN SODIUM - IV 10,000 UNITS/10 ML VIAL PRN (12:24)
[2018-03-04] MEDS: GENTAMICIN SULFATE 20 MG/2 ML VIAL OTHER PRN (12:24)
[2018-03-04] MEDS: DOCUSATE SODIUM 50 MG/SENNA 8.6 MG TAB PO SCH ×2 (12:48→20:08)
[2018-03-04] MEDS: FAMOTIDINE 20 MG TAB PO SCH ×2 (12:48→20:08)
[2018-03-04] MEDS: FERROUS SULFATE 325 MG (65 MG ELEMENTAL IRON) TAB PO SCH ×2 (12:48→20:08)
[2018-03-04 16:33] LABS: AMYLASE BODY FLUID 31 U/L; AMYLASE BODY FLUID TYPE PLEURAL
[2018-03-04] MEDS: ALPRAZolam 0.5 MG TAB PO PRN (17:20)
[2018-03-04] MEDS: BUMETANIDE INJ 100 ML IV SCH (17:20)
[2018-03-04] MEDS: ACETAMINOPHEN/HYDROcodone 325 MG/7.5 MG TAB PO PRN (17:21)
[2018-03-04 18:05] LABS: ALBUMIN 2.4 GM/DL (3.4-5.0); ALKALINE PHOSPHATASE 152 U/L (45-117); ALT (GPT) 35 U/L (10-53); AST (GOT) 24 U/L (15-37); BICARBONATE 23.1 MEQ/L (21.0-32.0); BLOOD UREA NITROGEN 75 MG/DL (7-18); CALCIUM 8.1 MG/DL (8.5-10.1); CHLORIDE 109 MEQ/L (98-107); CREATININE 2.61 MG/DL (0.50-1.00); GLOMERULAR FILTRATION RATE 18 ML/MIN (>89); GLUCOSE,RANDOM 257 MG/DL (74-106); SODIUM (NA) 142 MEQ/L (136-145); TOTAL BILIRUBIN ADULT 0.2 MG/DL (0.2-1.0); TOTAL PROTEIN 6.4 GM/DL (6.4-8.2)
--- NOTE | 2018-03-04 19:37 | HHI.PR ---
Subjective Remarks 67 YOWF with COPD,CAD,Pl eff Had vascath and HD Breathing better Was on NC, now back on PRB No Fever, cough or sp Objective Vital Signs Vital Signs Date Time Temp Pulse Resp B/P (MAP) Pulse Ox O2 Delivery O2 Flow Rate FiO2 03/04/18 18:00 77 03/04/18 16:00 75 03/04/18 16:00 98.4 75 14 149/65 (93) 95 03/04/18 14:49 94 Partial Rebreather 03/04/18 14:00 78 03/04/18 12:00 97.8 64 21 130/57 (81) 100 03/04/18 12:00 64 03/04/18 10:00 75 03/04/18 08:47 92 Partial Rebreather 03/04/18 08:02 89 Venturi Mask 50 03/04/18 08:00 74 03/04/18 08:00 98.0 70 26 165/72 (103) 100 03/04/18 06:00 68 03/04/18 04:00 97.7 63 16 148/66 (93) 97 03/04/18 04:00 63 03/04/18 02:00 56 03/04/18 00:00 98.0 58 18 145/63 (90) 90 03/04/18 00:00 58 03/03/18 22:00 56 03/03/18 20:00 58 03/03/18 20:00 97.8 58 17 125/79 (94) 90 03/03/18 19:42 93 Non-Rebreather 15.00 100 I/O 03/03/18 03/03/18 03/03/18 03/04/18 03/04/18 03/04/18 07:00 15:00 23:00 07:00 15:00 23:00 Intake Total 830 ml 225 ml 0 ml 425 ml Output Total 200 ml 2000 ml 600 ml 750 ml Balance -200 ml 830 ml -1775 ml -600 ml -325 ml Intake Oral 225 ml 0 ml 425 ml Packed Cells 800 ml Blood Product IV Normal Saline Flush 30 ml Output Urine Total 200 ml 400 ml 600 ml 750 ml Drainage Total 1600 ml # Bowel Movements 0 0 0 Result Diagram: 03/04/18 0452 03/04/18 1623 Objective Remarks GENERAL: MBMN WF mild sob SKIN: Warm and dry. HEAD: Normocephalic. EYES: No scleral icterus. No injection or drainage. NECK: Supple, trachea midline. No JVD or lymphadenopathy. CARDIOVASCULAR: Regular rate and rhythm without murmurs, gallops, or rubs. RESPIRATORY: Breath sounds equal bilaterally. No accessory muscle use. GASTROINTESTINAL: Abdomen soft, non-tender, nondistended. MUSCULOSKELETAL: No cyanosis, or edema. BACK: Nontender without obvious deformity. No CVA tenderness. A/P Assessment and Plan IMPRESSION: 1. Congestive heart failure. 2. Respiratory failure with hypoxia. 3. Chronic obstructive pulmonary disease. 4. Pleural effusion. 5. Coronary artery disease, status post recent stent placement. 6. History of Clostridium difficile colitis. 7. Chronic kidney disease. PLAN: Supplement 02 with PRB and wean 02 Aerosol nebs IV Solumedrol Cont Abx Monitor renal functions Aaron Blankenship MD Mar 04, 2018 19:37
[2018-03-04] MEDS: ATORVASTATIN 40 MG TAB PO SCH (20:08)
[2018-03-05] VITALS (28 sets, daily range): BP systolic 129–215; BP diastolic 59–106; PULSE 71–91; RESP 2–22; TEMP 97.6–98; O2SAT 88–100
[2018-03-05] MEDS: RESP: ALBUTEROL 2.5 MG/IPRATROPIUM 0.5 MG NEB (SCH) NEB ×6 (00:23→21:20)
[2018-03-05] MEDS: ALPRAZolam 0.5 MG TAB PO PRN (00:37)
[2018-03-05] MEDS: methylPREDNISolone SOD SUCC 125 MG/2 ML VIAL IV PUSH SCH ×2 (01:33→13:21)
[2018-03-05] MEDS: CEFEPIME INJ 1,000 MG in SODIUM CHLORIDE 0.9% INJ 100 ML IV SCH ×2 (03:34→15:49)
[2018-03-05] MEDS: CHLORHEXIDINE GLUCONATE 2 % 1 PACK (2 CLOTHS)(taper/protocol) TOPICAL SCH (03:34)
[2018-03-05] MEDS: cloNIDine HCL 0.1 MG TAB PO PRN (05:27)
[2018-03-05 05:41] LABS: AUTOMATED NEUTROPHIL # 4.6 TH/MM3 (1.8-7.7); BASOPHIL % 0.1 % (0.0-2.0); HEMATOCRIT 27.4 % (35.0-46.0); HEMOGLOBIN 9.3 GM/DL (11.6-15.3); LYMPH % 6.1 % (9.0-44.0); LYMPHOCYTE # 0.3 TH/MM3 (1.0-4.8); MEAN CELL VOLUME 88.6 FL (80.0-100.0); MEAN CORPUSCULAR HEMOGLOBIN 29.9 PG (27.0-34.0); MEAN CORPUSCULAR HGB CONC 33.8 % (32.0-36.0); MEAN PLATELET VOLUME 8.6 FL (7.0-11.0); MONO % 1.5 % (0.0-8.0); MONOCYTE # 0.1 TH/MM3 (0-0.9); NEUT % 92.3 % (16.0-70.0); PLATELET COUNT 251 TH/MM3 (150-450); RED BLOOD COUNT 3.09 MIL/MM3 (4.00-5.30); RED CELL DISTRIBUTION WIDTH 17.7 % (11.6-17.2)
[2018-03-05 06:05] LABS: ALBUMIN 2.5 GM/DL (3.4-5.0); ALT (GPT) 34 U/L (10-53); AST (GOT) 20 U/L (15-37); BICARBONATE 23.6 MEQ/L (21.0-32.0); BLOOD UREA NITROGEN 73 MG/DL (7-18); CALCIUM 8.5 MG/DL (8.5-10.1); CHLORIDE 107 MEQ/L (98-107); CREATININE 2.76 MG/DL (0.50-1.00); GLOMERULAR FILTRATION RATE 17 ML/MIN (>89); GLUCOSE,RANDOM 266 MG/DL (74-106); PHOSPHORUS 6.2 MG/DL (2.5-4.9); SODIUM (NA) 140 MEQ/L (136-145)
[2018-03-05 06:08] LABS: ALKALINE PHOSPHATASE 149 U/L (45-117); TOTAL BILIRUBIN ADULT 0.2 MG/DL (0.2-1.0); TOTAL PROTEIN 6.8 GM/DL (6.4-8.2)
[2018-03-05] MEDS: ISOSORBIDE MONONITRATE 60 MG CR TAB (IMDUR) PO SCH (06:25)
--- NOTE | 2018-03-05 06:31 | RADRPT ---
EXAM DATE/TIME: 03/05/2018 04:51 [facility] COMPARISON: CHEST SINGLE AP, March 04, 2018, 10:05. INDICATIONS : Shortness of breath, possible pulmonary disease. MEDICAL HISTORY : Hypercholesterolemia. Myocardial infarction. Chronic obstructive pulmonary disease. CHF A-fib SURGICAL HISTORY : Coronary artery stent. ENCOUNTER: Subsequent ACUITY: 3 days PAIN SCORE: Non-responsive. LOCATION: Bilateral chest FINDINGS: Single AP view of the chest. Right IJ central venous catheter remains in place. Cardiac silhouette is prominent but unchanged. Bilateral hazy pulmonary opacity and pulmonary vasculature indistinctness l ikely represents pulmonary edema. Bilateral pleural effusions left greater than right. Pulmonary vasc ular congestion/edema is slightly increased. CONCLUSION: Slight increase in pulmonary edema/pulmonary vascular congestion. Persistent left greater than right pleural effusions.. Dwain Estevez MD on March 05, 2018 at 6:29 Board Certified Radiologist. This report was verified electronically.
[2018-03-05] MEDS: TIOTROPIUM BROMIDE 18 MCG INH INH SCH (08:35)
[2018-03-05] MEDS: BUDESONIDE-FORMOTEROL 160/4.5 MCG INHALER INH SCH ×2 (08:35→20:40)
[2018-03-05] MEDS: FERROUS SULFATE 325 MG (65 MG ELEMENTAL IRON) TAB PO SCH ×2 (08:36→20:40)
[2018-03-05] MEDS: NIFEdipine 30 MG SUSTAINED RELEASE TAB PO SCH ×2 (08:36→20:39)
[2018-03-05] MEDS: PRASUGREL 10 MG TAB PO SCH (08:36)
[2018-03-05] MEDS: DOXAZOSIN MESYLATE 2 MG TAB PO SCH (08:36)
[2018-03-05] MEDS: DOCUSATE SODIUM 50 MG/SENNA 8.6 MG TAB PO SCH ×2 (08:36→20:39)
[2018-03-05] MEDS: SODIUM CHLORIDE 0.9% FLUSH 10 ML FLUSH IV FLUSH SCH ×2 (08:37→20:40)
[2018-03-05] MEDS: ACETAMINOPHEN/HYDROcodone 325 MG/7.5 MG TAB PO PRN (08:37)
[2018-03-05] MEDS: FAMOTIDINE 20 MG TAB PO SCH ×2 (08:40→20:40)
[2018-03-05] MEDS: HEPARIN SODIUM - SQ 10,000 UNITS/ML VIAL SQ SCH ×2 (08:41→20:41)
[2018-03-05] MEDS: INSULIN ASPART SUPPLEMENTAL SCALE SQ SCH ×3 (08:43→16:00)
--- NOTE | 2018-03-05 13:02 | HHI.NPPN ---
Subjective History of Present Illness Patient is a 67 year old female with past medical history of Diabetes mellitus, hypertension, arthritis, hyperlipidemia, ischemic heart disease, diastolic CHF, and chronic kidney disease stage IV. Patient presented to ED with worsening shortness of breath since Wednesday and increased in bilateral lower extremity edema. She complains of weakness, fatigue, nausea, headache, dizziness, anxiety , and pain in lower extremity. Nephrology was consulted for chronic kidney disease with acute worsening and fluid overload. Patients creatine is found to be 3.06 with a GFR of 15 ml/min. Potassium level of 5.5. Patient baseline creatinine is has been running at 2.1 to 2.5 in 11/14. This is a known patient of Dr. Toro Objective Data Data Vital Signs Date Time Temp Pulse Resp B/P (MAP) Pulse Ox O2 Delivery O2 Flow Rate FiO2 03/05/18 11:58 94 Partial Rebreather 10.00 03/05/18 09:48 93 Partial Rebreather 10.00 03/05/18 09:32 94 Partial Rebreather 15.00 03/05/18 06:00 75 03/05/18 06:00 96 Partial Rebreather 15.00 03/05/18 04:00 97.9 72 13 188/84 (118) 97 03/05/18 04:00 73 03/05/18 03:30 71 2 98 03/05/18 03:00 74 22 202/84 (123) 99 03/05/18 02:30 75 15 100 03/05/18 02:00 75 10 177/72 (107) 100 03/05/18 02:00 75 03/05/18 01:30 75 13 100 03/05/18 01:00 75 10 181/79 (113) 99 03/05/18 00:30 76 10 191/84 (119) 94 03/05/18 00:05 74 16 191/83 (119) 97 03/05/18 00:00 75 03/05/18 00:00 98.0 75 14 188/79 (115) 96 03/04/18 23:30 74 7 99 03/04/18 23:00 75 12 187/80 (115) 99 03/04/18 22:30 75 14 99 03/04/18 22:00 76 03/04/18 22:00 76 13 198/81 (120) 98 4/6/18 21:30 75 17 99 03/04/18 21:00 75 15 169/74 (105) 100 03/04/18 20:35 97 Partial Rebreather 15.00 03/04/18 20:30 75 16 162/72 (102) 97 03/04/18 20:15 77 21 175/66 (102) 93 03/04/18 20:00 98.2 76 20 165/70 (101) 95 03/04/18 20:00 76 03/04/18 19:45 75 15 168/72 (104) 98 03/04/18 19:30 75 15 177/74 (108) 98 03/04/18 19:15 75 13 148/67 (94) 97 03/04/18 19:00 75 16 146/64 (91) 97 03/04/18 18:45 77 18 148/67 (94) 95 03/04/18 18:30 78 25 149/65 (93) 75 03/04/18 18:15 76 19 155/70 (98) 97 03/04/18 18:00 77 14 154/69 (97) 96 03/04/18 18:00 77 03/04/18 17:45 77 13 157/70 (99) 95 03/04/18 17:30 76 15 159/70 (99) 94 03/04/18 17:15 77 17 145/65 (91) 93 03/04/18 17:00 74 18 142/64 (90) 95 03/04/18 16:45 75 14 150/67 (94) 95 03/04/18 16:30 75 14 144/64 (90) 95 03/04/18 16:00 75 03/04/18 16:00 98.4 75 14 149/65 (93) 95 03/04/18 14:49 94 Partial Rebreather 03/04/18 14:00 78 -: 03/05/18 0442 03/05/18 0442 Assessment/Plan Problem List: (1) Chronic kidney disease (CKD) stage G4/A1, severely decreased glomerular filtration rate (GFR) between 15-29 mL/min/1.73 square meter and albuminuria creatinine ratio less than 30 mg/g ICD Codes: N18.4 - Chronic kidney disease, stage 4 (severe) Plan: Acute kidney injury from possible pre renal vs ATN Patient with history of Chronic kidney disease related to hypertension or diabetic renal disease. Patients baseline creatinine at 2.1-2.5 in October 2017 Patient is in fluid overload status Potassium level elevated at 6.5 Thoracentesis with 1.4 liters removed Plan Patient received hemodialysis yesterday for hyperkalemia and fluid overload, 4 L were removed next HD today Potassium is corrected Hypertension patient blood pressure is labile resume hydralazine 75 mg 3 times a day May will need halfway HD , D/W the patient. (2) Diastolic CHF, acute ICD Codes: I50.31 - Acute diastolic (congestive) heart failure Plan: thoracentesis yesterday with 1.4 liters removed. (3) Anemia ICD Codes: D64.9 - Anemia, unspecified Plan: Improved after PRBC Epogen with dialysis Rigoberto Blue MD Mar 05, 2018 13:02
[2018-03-05] MEDS: hydrALAZINE HCL 25 MG TAB PO SCH ×2 (14:27→20:40)
[2018-03-05] MEDS ORDERED: CHLOROTHIAZIDE SOD 500 MG VIAL IV ONE (16:00)
[2018-03-05] MEDS ORDERED: DEXTROSE 50% IN WATER 50 ML VIAL(D50) IV PUSH PRN (16:00)
[2018-03-05] MEDS ORDERED: ALBUMIN 25% INJ 100 ML IV ONE (16:00)
[2018-03-05] MEDS: INSULIN NovoLIN REGULAR SUPPLEMENTAL SCALE SQ SCH ×3 (17:00→20:45)
--- NOTE | 2018-03-05 17:03 | HHI.CCPN ---
Subjective Remarks/Hospital Course Patient is a 67-year-old female with past medical history of COPD on home oxygen 3L, CHF, probable diastolic heart failure (echo on 01/03/18 EF of 55- 60%), chronic kidney disease with baseline creatinine 2.5-3, chronic anemia, diabetes mellitus, was admitted to the hospitalist service yesterday with increasing shortness of breath likely secondary to CHF exacerbation. She also reported increase in her bilateral lower extremity edema. Chest x-ray showed congestive heart failure and large left pleural effusion. Patient was placed on IV diuretics breathing treatments and admitted to ICU under hospitalist. Since a.m. today patient had been having increasing shortness of breath and increasing oxygen requirement. Due to hypoxia she was placed on 100% nonrebreather. Critical care medicine was consulted for acute hypoxemic respiratory failure. I immediately evaluated the patient. She appeared to be in moderate to severe respiratory distress, tachypneic oxygen saturation barely 90% on 100% nonrebreather. Bedside ultrasound showed large left pleural effusion. I emergently did a thoracentesis and removed 1.6 L of clear straw- colored pleural fluid with improvement in oxygen saturation. Fluid studies are pending at this time. Will give IV Solu Medrol 100 mg 1 and 40 every 12. Scheduled breathing treatments. Starts Spiriva and Symbicort. Empiric cefepime for COPD exacerbation. Continue IV Lasix but increase dose to 40 mg every 8 hours, and additional 40 mg x1 IV now. Patient had hemoglobin 6.5 today and was given 2 units of PRBC. She reports history of chronic anemia also patient's father of colon cancer age of [address]. [address] 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 Will consult GI once her respiratory status stabilizes. SUBJ 4/6: Remains critically ill hypoxemic, more acidemic and hyperkalemic. Potassium is 6.5 creatinine 3. Despite Bumex infusion, patient has developed recurrent bilateral pleural effusions. ABG 7.24/39/61 with BE -10. Hyperkalemia is being treated with 2 A of bicarb, calcium gluconate IV, IV insulin 5 units, dextrose 1 amp, and Kayexalate 30 g. Due to fluid overload hypoxemia acidosis and hyperkalemia I have contacted Dr. Toro. I will Place Vas-Cath emergently and start hemodialysis. Patient had thoracentesis with 1.6 L of pleural fluid removed from left side yesterday 03/05: IHD yesterday. per nephrology, wants to use loop diuretics for additional volume removal, but not making adequate urine to accomplish this. will add 1 dose Diuril to her bumex drip and 1 dose concentrated albumin. remains on partial NRB. Objective Vital Signs Date Time Temp Pulse Resp B/P (MAP) Pulse Ox O2 Delivery O2 Flow Rate FiO2 03/05/18 11:58 94 Partial Rebreather 10.00 03/05/18 06:00 75 03/05/18 04:00 97.9 13 188/84 (118) 03/04/18 08:02 50 Intake and Output 03/05/18 03/05/18 03/05/18 07:59 15:59 23:59 Intake Total 542 ml Output Total 925 ml Balance -383 ml Result Diagram: 03/05/1844103/05/18441 Imaging CXR shows congestive heart failure, large left pleural effusion Objective Remarks GENERAL: female lying in bed in moderate distress hypoxic SKIN: No rashes, ecchymoses or lesions. Cool and dry. HEAD: Atraumatic. Normocephalic. EYES: Pupils equal round and reactive. Extraocular motions intact. ENT: Uvula midline. Airway patent. NECK: Trachea midline. No JVD or lymphadenopathy. CARDIOVASCULAR: Normal rate and rhythm without murmurs, gallops, or rubs. RESPIRATORY: Air entry diminished bilaterally. Few expiratory wheezes send Rales right lung field GASTROINTESTINAL: Abdomen soft, non-tender, nondistended. No hepato-splenomegaly MUSCULOSKELETAL: 2+ bilateral lower extremity edema that extends up to the thighs. Surgical scar right lower leg from previous dog bite repair NEUROLOGICAL: Awake and alert. Motor and sensory grossly within normal limits. Normal speech. Limited exam due to respiratory distress A/P Assessment and Plan ASSESSMENT: Acute on chronic hypoxemic respiratory failure Large left pleural effusion Severe metabolic acidosis Hyperkalemia CHF exacerbation, probably diastolic COPD with acute exacerbation Acute on chronic kidney failure Anemia requiring transfusion Chronic artery disease status post stent Hypertension Dyslipidemia COPD on home oxygen 3 L PLAN: NEURO: -Minimize sedation. Xanax as needed for anxiety -Add Lortab 7.5/325 mg q6hr PRN for chronic pain RESP: -Status post emergency left thoracentesis with 1.6 L straw-colored fluid removed -Chest x-ray today shows reaccumulation of bilateral effusion -03/04 Vas-Cath for emergent hemodialysis -Continue DuoNeb every 4 hours scheduled and when necessary -Continue Symbicort and Spiriva -BiPAP when necessary, EzPap acapella ordered -Empiric cefepime for COPD exacerbation -Pulmonary Dr. Blankenship consulted CV: -Chest x-ray and BNP elevation consistent with CHF exacerbation -Increasing pleural effusions despite thoracentesis and Bumex infusion -Vas-Cath placement and hemodialysis 03/04 -Continue home antihypertensives. Resume Effient after HD catheter -Previous 2-D echo revealed EF 55% in Dec 2017. GI: -advance diet to renal diet. -Pepcid for GI prophylaxis : -Discussed with Dr. Toro, Place Vas-Cath 03/04 for IHD -Hyperkalemia treated with, IV bicarb, IV calcium, dextrose and IV insulin, and Kayexalate. Already on scheduled breathing treatment -Monitor renal function closely. Lim catheter. -Continue Bumex infusion -Strict intake output monitor CMP daily - add 1 dose diuril and albumin to assist with volume removal nephrology following.. ID: -F/U sputum culture, empiric cefepime HEME: -Monitor CBC, CMP, coags ENDO: -Treat hyperkalemia as above -SSI PROPH: -Bilateral lower extremity SCDs. Heparin 5000 units subcutaneous every 12. Famotidine for GI prophylaxis LINES: -Utilize peripheral IVs, central line if needed CC time 45 min excluding procedures Critically ill 67-year-old female with history of CHF diastolic dysfunction, and COPD exacerbation, severe hyperkalemia and metabolic acidosis. Despite Bumex infusion on thoracentesis, has reaccumulation of large pleural effusions. Start emergent HD. At risk of acute respiratory decompensation and requiring intubation Trevor Dunne MD Mar 05, 2018 17:03
[2018-03-05] MEDS: BUMETANIDE INJ 100 ML IV SCH (17:25)
--- NOTE | 2018-03-05 18:10 | HHI.PR ---
Subjective Remarks 67 YOWF with COPD,CAD,Pl eff Breathing better on PRB No Fever, cough or sp On Bumex drip Objective Vital Signs Vital Signs Date Time Temp Pulse Resp B/P (MAP) Pulse Ox O2 Delivery O2 Flow Rate FiO2 03/05/18 17:00 87 19 144/66 (92) 92 03/05/18 16:00 97.9 86 11 145/64 (91) 95 03/05/18 15:00 86 15 135/63 (87) 96 03/05/18 14:00 76 15 129/60 (83) 94 03/05/18 13:01 81 10 133/59 (83) 88 03/05/18 12:00 97.7 78 14 166/71 (102) 97 03/05/18 11:58 94 Partial Rebreather 10.00 03/05/18 11:00 76 15 160/71 (100) 91 03/05/18 10:00 76 16 134/63 (86) 90 03/05/18 09:52 76 16 139/64 (89) 96 03/05/18 09:48 93 Partial Rebreather 10.00 03/05/18 09:32 94 Partial Rebreather 15.00 03/05/18 09:00 79 20 215/86 (129) 97 03/05/18 08:00 97.6 78 17 190/106 (134) 96 03/05/18 06:00 75 03/05/18 06:00 96 Partial Rebreather 15.00 03/05/18 04:00 97.9 72 13 188/84 (118) 97 03/05/18 04:00 73 03/05/18 03:30 71 2 98 03/05/18 03:00 74 22 202/84 (123) 99 03/05/18 02:30 75 15 100 03/05/18 02:00 75 10 177/72 (107) 100 03/05/18 02:00 75 03/05/18 01:30 75 13 100 03/05/18 01:00 75 10 181/79 (113) 99 03/05/18 00:30 76 10 191/84 (119) 94 03/05/18 00:05 74 16 191/83 (119) 97 03/05/18 00:00 75 03/05/18 00:00 98.0 75 14 188/79 (115) 96 03/04/18 23:30 74 7 99 03/04/18 23:00 75 12 187/80 (115) 99 03/04/18 22:30 75 14 99 03/04/18 22:00 76 03/04/18 22:00 76 13 198/81 (120) 98 03/04/18 21:30 75 17 99 03/04/18 21:00 75 15 169/74 (105) 100 03/04/18 20:35 97 Partial Rebreather 15.00 03/04/18 20:30 75 16 162/72 (102) 97 03/04/18 20:15 77 21 175/66 (102) 93 03/04/18 20:00 98.2 76 20 165/70 (101) 95 03/04/18 20:00 76 03/04/18 19:45 75 15 168/72 (104) 98 03/04/18 19:30 75 15 177/74 (108) 98 03/04/18 19:15 75 13 148/67 (94) 97 03/04/18 19:00 75 16 146/64 (91) 97 03/04/18 18:45 77 18 148/67 (94) 95 03/04/18 18:30 78 25 149/65 (93) 75 03/04/18 18:15 76 19 155/70 (98) 97 I/O 03/04/18 03/04/18 03/04/18 03/05/18 03/05/18 03/05/18 07:00 15:00 23:00 07:00 15:00 23:00 Intake Total 0 ml 645 ml 542 ml Output Total 600 ml 750 ml 925 ml Balance -600 ml -105 ml -383 ml Intake Oral 0 ml 425 ml 400 ml IV Total 220 ml 142 ml Output Urine Total 600 ml 750 ml 925 ml # Bowel Movements 0 0 Result Diagram: 03/05/1844103/05/18441 Objective Remarks GENERAL: MBMN WF mild sob SKIN: Warm and dry. HEAD: Normocephalic. EYES: No scleral icterus. No injection or drainage. NECK: Supple, trachea midline. No JVD or lymphadenopathy. CARDIOVASCULAR: Regular rate and rhythm without murmurs, gallops, or rubs. RESPIRATORY: Breath sounds equal bilaterally. No accessory muscle use. GASTROINTESTINAL: Abdomen soft, non-tender, nondistended. MUSCULOSKELETAL: No cyanosis, or edema. BACK: Nontender without obvious deformity. No CVA tenderness. A/P Assessment and Plan IMPRESSION: 1. Congestive heart failure. 2. Respiratory failure with hypoxia. 3. Chronic obstructive pulmonary disease. 4. Pleural effusion. 5. Coronary artery disease, status post recent stent placement. 6. History of Clostridium difficile colitis. 7. Chronic kidney disease. PLAN: Supplement 02 with PRB and wean 02 Aerosol nebs IV Solumedrol Cont Abx Monitor renal functions Bumex Aaron Malagon MD Mar 05, 2018 18:10
[2018-03-05] MEDS: ATORVASTATIN 40 MG TAB PO SCH (20:40)
[2018-03-05] MEDS: INSULIN DETEMIR 100 UNITS/ML VIAL SQ SCH (21:30)
[2018-03-06] VITALS (27 sets, daily range): BP systolic 158–186; BP diastolic 64–79; PULSE 75–93; RESP 8–21; TEMP 97–98.3; O2SAT 91–100
[2018-03-06] MEDS: RESP: ALBUTEROL 2.5 MG/IPRATROPIUM 0.5 MG NEB (SCH) NEB ×7 (00:51→23:12)
[2018-03-06] MEDS: GENTAMICIN SULFATE 20 MG/2 ML VIAL OTHER PRN (01:25)
[2018-03-06] MEDS: HEPARIN SODIUM - IV 10,000 UNITS/10 ML VIAL PRN (01:26)
[2018-03-06] MEDS: methylPREDNISolone SOD SUCC 125 MG/2 ML VIAL IV PUSH SCH ×2 (02:38→15:03)
[2018-03-06] MEDS: ACETAMINOPHEN/HYDROcodone 325 MG/7.5 MG TAB PO PRN (02:39)
[2018-03-06] MEDS: INSULIN NovoLIN REGULAR SUPPLEMENTAL SCALE SQ SCH ×2 (02:43→08:00)
[2018-03-06] MEDS: CHLORHEXIDINE GLUCONATE 2 % 1 PACK (2 CLOTHS)(taper/protocol) TOPICAL SCH (04:00)
[2018-03-06] MEDS: CEFEPIME INJ 1,000 MG in SODIUM CHLORIDE 0.9% INJ 100 ML IV SCH ×2 (04:32→15:02)
[2018-03-06] MEDS: hydrALAZINE HCL 25 MG TAB PO SCH ×3 (05:44→20:55)
[2018-03-06 06:05] LABS: HEMATOCRIT 27.6 % (35.0-46.0); HEMOGLOBIN 9.4 GM/DL (11.6-15.3); MEAN CELL VOLUME 88.7 FL (80.0-100.0); MEAN CORPUSCULAR HEMOGLOBIN 30.3 PG (27.0-34.0); MEAN CORPUSCULAR HGB CONC 34.1 % (32.0-36.0); MEAN PLATELET VOLUME 8.5 FL (7.0-11.0); PLATELET COUNT 251 TH/MM3 (150-450); RED BLOOD COUNT 3.11 MIL/MM3 (4.00-5.30); RED CELL DISTRIBUTION WIDTH 17.3 % (11.6-17.2); WHITE BLOOD COUNT 5.3 TH/MM3 (4.0-11.0)
[2018-03-06 06:48] LABS: CALCIUM 8.9 MG/DL (8.5-10.1); CREATININE 2.12 MG/DL (0.50-1.00)
[2018-03-06] MEDS: ISOSORBIDE MONONITRATE 60 MG CR TAB (IMDUR) PO SCH (07:22)
[2018-03-06] MEDS: NIFEdipine 30 MG SUSTAINED RELEASE TAB PO SCH ×2 (08:09→20:56)
[2018-03-06] MEDS: PRASUGREL 10 MG TAB PO SCH (08:09)
[2018-03-06] MEDS: INSULIN DETEMIR 100 UNITS/ML VIAL SQ SCH (08:09)
[2018-03-06] MEDS: FAMOTIDINE 20 MG TAB PO SCH ×2 (08:09→20:54)
[2018-03-06] MEDS: DOCUSATE SODIUM 50 MG/SENNA 8.6 MG TAB PO SCH ×2 (08:09→20:54)
[2018-03-06] MEDS: FERROUS SULFATE 325 MG (65 MG ELEMENTAL IRON) TAB PO SCH ×2 (08:09→20:58)
[2018-03-06] MEDS: DOXAZOSIN MESYLATE 2 MG TAB PO SCH (08:09)
[2018-03-06] MEDS: BUDESONIDE-FORMOTEROL 160/4.5 MCG INHALER INH SCH ×2 (08:10→20:54)
[2018-03-06] MEDS: TIOTROPIUM BROMIDE 18 MCG INH INH SCH (08:10)
[2018-03-06] MEDS: HEPARIN SODIUM - SQ 10,000 UNITS/ML VIAL SQ SCH ×2 (08:11→20:56)
[2018-03-06] MEDS: SODIUM CHLORIDE 0.9% FLUSH 10 ML FLUSH IV FLUSH SCH ×2 (09:00→20:54)
[2018-03-06] MEDS ORDERED: DEXTROSE 50% IN WATER 50 ML VIAL(D50) IV PUSH PRN (11:30)
[2018-03-06] MEDS ORDERED: GLUCAGON 1 MG/ML VIAL OTHER PRN (11:30)
[2018-03-06] MEDS: INSULIN ASPART SUPPLEMENTAL SCALE SQ SCH ×3 (12:00→20:55)
[2018-03-06] MEDS ORDERED: RESP: ALBUTEROL 2.5 MG/3 ML NEB (PRN) NEB (12:00)
--- NOTE | 2018-03-06 12:47 | HHI.CCPN ---
Subjective Remarks/Hospital Course Patient is a 67-year-old female with past medical history of COPD on home oxygen 3L, CHF, probable diastolic heart failure (echo on 01/03/18 EF of 55- 60%), chronic kidney disease with baseline creatinine 2.5-3, chronic anemia, diabetes mellitus, was admitted to the hospitalist service yesterday with increasing shortness of breath likely secondary to CHF exacerbation. She also reported increase in her bilateral lower extremity edema. Chest x-ray showed congestive heart failure and large left pleural effusion. Patient was placed on IV diuretics breathing treatments and admitted to ICU under hospitalist. Since a.m. today patient had been having increasing shortness of breath and increasing oxygen requirement. Due to hypoxia she was placed on 100% nonrebreather. Critical care medicine was consulted for acute hypoxemic respiratory failure. I immediately evaluated the patient. She appeared to be in moderate to severe respiratory distress, tachypneic oxygen saturation barely 90% on 100% nonrebreather. Bedside ultrasound showed large left pleural effusion. I emergently did a thoracentesis and removed 1.6 L of clear straw- colored pleural fluid with improvement in oxygen saturation. Fluid studies are pending at this time. Will give IV Solu Medrol 100 mg 1 and 40 every 12. Scheduled breathing treatments. Starts Spiriva and Symbicort. Empiric cefepime for COPD exacerbation. Continue IV Lasix but increase dose to 40 mg every 8 hours, and additional 40 mg x1 IV now. Patient had hemoglobin 6.5 today and was given 2 units of PRBC. She reports history of chronic anemia also patient's father of colon cancer age of [address]. [address] 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 Will consult GI once her respiratory status stabilizes. 6: Remains critically ill hypoxemic, more acidemic and hyperkalemic. Potassium is 6.5 creatinine 3. Despite Bumex infusion, patient has developed recurrent bilateral pleural effusions. ABG 7.24/39/61 with BE -10. Hyperkalemia is being treated with 2 A of bicarb, calcium gluconate IV, IV insulin 5 units, dextrose 1 amp, and Kayexalate 30 g. Due to fluid overload hypoxemia acidosis and hyperkalemia I have contacted Dr. Toro. I will Place Vas-Cath emergently and start hemodialysis. Patient had thoracentesis with 1.6 L of pleural fluid removed from left side yesterday 03/05: IHD yesterday. per nephrology, wants to use loop diuretics for additional volume removal, but not making adequate urine to accomplish this. will add 1 dose Diuril to her bumex drip and 1 dose concentrated albumin. remains on partial NRB. Subjective 03/06: Currently on Venturi mask at 6 L 50%. States she is breathing much better at the present time. Remains on budesonide drip at 1 mg an hour. Objective Vital Signs Date Time Temp Pulse Resp B/P (MAP) Pulse Ox O2 Delivery O2 Flow Rate FiO2 03/06/18 10:28 91 Venturi Mask 6.00 03/06/18 09:30 91 15 175/77 (109) 03/06/18 08:00 97.9 03/04/18 08:02 50 Intake and Output 03/06/18 03/06/18 03/07/18 08:00 16:00 00:00 Intake Total 400 ml Output Total 5300 ml Balance -4900 ml Result Diagram: 03/06/18 0346 03/06/18 0346 Other Results Microbiology Date/Time Source Procedure Growth Status 03/03/18 13:10 Fluid Pleural Fluid Fungal Smear - Final NO FUNGAL ELEMENTS SEEN. Resulted 03/03/18 13:10 Fluid Pleural Fluid Fungal Culture Pending Resulted Imaging Last Impressions Chest X-Ray 03/05/18 0600 Signed Impressions: Service Date/Time: Monday, March 05, 2018 04:51 - CONCLUSION: Slight increase in pulmonary edema/pulmonary vascular congestion. Persistent left greater than right pleural effusions.. Dwain Estevez MD Objective Remarks GENERAL: 67-year-old female lying in bed Venturi mask in no acute distress SKIN: No rashes, ecchymoses or lesions. Cool and dry. HEAD: Atraumatic. Normocephalic. EYES: Pupils equal round and reactive. Extraocular motions intact. ENT: Uvula midline. Airway patent. NECK: Trachea midline. No JVD or lymphadenopathy. Right IJ hemodialysis catheter is clean dry and intact CARDIOVASCULAR: RRR. S1, S2. No S4. No S3. Without murmurs, gallops, or rubs. RESPIRATORY: Air entry diminished bilaterally. Coarse crackles appreciated bilateral lower lobes posteriorly are left greater than right GASTROINTESTINAL: Abdomen soft, non-tender, nondistended. Hypoactive bowel sounds appreciated no hepato-splenomegaly MUSCULOSKELETAL: 1+ bilateral lower extremity edema that extends up to the thighs. Signs of wrinkling/pruning. Surgical scar right lower leg from previous dog bite repair NEUROLOGICAL: Awake and alert. Motor and sensory grossly within normal limits. Normal speech. Urinary Catheter: Yes Assessment to: Continue Lim insert reason: ICU Pt Getting Diuretics Vascular Central Line Catheter: No Assessment to: Continue A/P Assessment and Plan PLAN: NEURO/PSYCH: Anxiety disorder NOS Diabetic retinopathy Diabetic neuropathy Chronic pain syndrome Acetaminophen 650 mg p.o. every 4 hours as needed fever Hydrocodone/acetaminophen 7.5/325 with 1 tablet every 4 hours as needed pain 3-5 Alprazolam 0.5 mg p.o. every 8 hours as needed anxiety RESP: Acute on chronic hypoxemic respiratory failure secondary to COPD/large left pleural effusion COPD -3 L oxygen dependent Currently on Venturi mask at 50% to maintain saturations greater than 92% Incentive problems while awake -Status post emergency left thoracentesis with 1.6 L straw-colored fluid removed Chest x-ray 03/05 reveals left greater than right pleural effusion -03/04 Vas-Cath for emergent hemodialysis -Continue albuterol/ipratropium aerosols every 4 hours with albuterol aerosols every 2 hours as needed for dyspnea -Continue budesonide/formoterol 160/4.5 2 puffs twice daily -BiPAP when necessary, EzPap acapella ordered -Pulmonary Dr. Blankenship consulted At home on furosemide 40 mg p.o. twice daily and cephalexin 12.5 mg p.o. daily CV: Coronary artery disease status post stent 2 Essential hypertension Congestive heart failure likely diastolic Dyslipidemia Paroxysmal atrial fibrillation -Chest x-ray and BNP elevation consistent with CHF exacerbation -Increasing pleural effusions despite thoracentesis and Bumetanide infusion -Vas-Cath placement and hemodialysis 03/04 -Continue home antihypertensives. Including nifedipine extended release 30 mg twice daily, doxazosin 2 mg p.o. daily, carvedilol 6.25 mg p.o. twice daily and hydralazine 75 mg every 8 hours Continue prasuquel 10 mg p.o. daily and aspirin 81 mg p.o. daily Continue atorvastatin 40 mg p.o. daily 2-D echo revealed EF 55% in Dec 2017. On hydrocortisone 100 mg IV every 8 hours GI: Hiatal hernia -advance diet to renal diet. -Famotidine for GI prophylaxis Docusate sodium/senna 1 tablet twice daily for bowel regimen Renal/: Acute kidney injury -Discussed with Dr. Toro, Place Vas-Cath 03/04 for intermittent hemodialysis -Monitor renal function closely. Lim catheter. -Continue bumetanide infusion currently 1 mg an hour Accurate I's and O nephrology following.. ID: -F/U sputum culture, empiric cefepime Pleural fluid cultures 03/03 no growth to date HEME: -Monitor CBC, CMP, coags On iron sulfate 320 mg p.o. twice daily ENDO: Diabetes mellitus Currently Novulin N 15 units in morning 5 units at night Continue with sliding scale insulin/moderate regimen of Novulog -Treat hyperkalemia as above -SSI PROPH: -Bilateral lower extremity SCDs. Heparin 5000 units subcutaneous every 12. Famotidine for GI prophylaxis LINES: -Utilize peripheral IVs, central line if needed Level 2 follow-up Chao Gamble MD Mar 06, 2018 12:47
--- NOTE | 2018-03-06 16:15 | HHI.NPPN ---
Subjective History of Present Illness Patient is a 67 year old female with past medical history of Diabetes mellitus, hypertension, arthritis, hyperlipidemia, ischemic heart disease, diastolic CHF, and chronic kidney disease stage IV. Patient presented to ED with worsening shortness of breath since Wednesday and increased in bilateral lower extremity edema. She complains of weakness, fatigue, nausea, headache, dizziness, anxiety , and pain in lower extremity. Nephrology was consulted for chronic kidney disease with acute worsening and fluid overload. Patients creatine is found to be 3.06 with a GFR of 15 ml/min. Potassium level of 5.5. Patient baseline creatinine is has been running at 2.1 to 2.5 in 11/14. This is a known patient of Dr. Toro Objective Data Data Vital Signs Date Time Temp Pulse Resp B/P (MAP) Pulse Ox O2 Delivery O2 Flow Rate FiO2 03/06/18 10:28 91 Venturi Mask 6.00 03/06/18 09:30 91 15 175/77 (109) 96 03/06/18 09:00 91 16 167/72 (103) 96 03/06/18 08:30 90 15 172/77 (108) 93 03/06/18 08:00 97.9 90 15 174/75 (108) 94 03/06/18 06:00 89 03/06/18 04:31 17 03/06/18 04:00 97.0 90 16 178/77 (110) 99 03/06/18 04:00 90 03/06/18 02:00 90 03/06/18 00:00 97.3 91 20 158/64 (95) 99 03/06/18 00:00 91 03/05/18 22:00 91 03/05/18 21:20 98 Partial Rebreather 10.00 03/05/18 20:00 97.6 91 20 181/79 (113) 95 03/05/18 20:00 91 03/05/18 17:00 87 19 144/66 (92) 92 -: 03/06/18 0346 03/06/18 0346 Assessment/Plan Problem List: (1) Chronic kidney disease (CKD) stage G4/A1, severely decreased glomerular filtration rate (GFR) between 15-29 mL/min/1.73 square meter and albuminuria creatinine ratio less than 30 mg/g ICD Codes: N18.4 - Chronic kidney disease, stage 4 (severe) Plan: Acute kidney injury from possible pre renal vs ATN Patient with history of Chronic kidney disease related to hypertension or diabetic renal disease. Patients baseline creatinine at 2.1-2.5 in October 2017 Patient is in fluid overload status Potassium level elevated at 6.5 Thoracentesis with 1.4 liters removed Plan Patient received hemodialysis yesterday for hyperkalemia and fluid overload, 4 L were removed yesterday next HD Wednesday Potassium is low replacement given Patient is on Bumex drip good urine output decreased to 0.5 mg Hypertension patient blood pressure is labile resume hydralazine 75 mg 3 times a day May will need terminal gauger HD , D/W the patient. Dr. Toro to follow (2) Diastolic CHF, acute ICD Codes: I50.31 - Acute diastolic (congestive) heart failure Plan: thoracentesis 1.4 liters removed. (3) Anemia ICD Codes: D64.9 - Anemia, unspecified Plan: Improved after PRBC Epogen with dialysis Rigoberto Blue MD Mar 06, 2018 16:15
[2018-03-06] MEDS ORDERED: POTASSIUM CHLORIDE 8 MEQ CONTROLLED RELEASE TAB PO ONE (16:30)
[2018-03-06] MEDS: INSULIN HUMAN NPH 1,000 UNITS/10 ML VIAL SQ SCH (17:00)
[2018-03-06] MEDS: BUMETANIDE 25 MG/100 ML CONTINOUS DRIP IV SCH (17:00)
[2018-03-06] MEDS: cloNIDine HCL 0.1 MG TAB PO PRN (18:12)
[2018-03-06] MEDS ORDERED: EPOETIN ALFA 10,000 UNITS/ML VIAL IV PUSH PRN (18:30)
--- NOTE | 2018-03-06 19:10 | HHI.PR ---
Subjective Remarks 67 YOWF with COPD,CAD,Pl eff No Fever, cough or sp On Bumex drip Had HD yesterday, 4L fluid removed Weaned to 4LNC Feels much better Objective Vital Signs Vital Signs Date Time Temp Pulse Resp B/P (MAP) Pulse Ox O2 Delivery O2 Flow Rate FiO2 03/06/18 16:30 92 15 160/72 (101) 95 03/06/18 16:17 92 18 176/77 (110) 94 03/06/18 16:00 98.0 92 16 177/77 (110) 95 03/06/18 15:31 90 8 186/79 (114) 100 03/06/18 15:00 90 16 168/77 (107) 93 03/06/18 14:30 90 11 166/74 (104) 93 03/06/18 14:00 90 20 171/77 (108) 93 03/06/18 13:30 91 15 170/74 (106) 94 03/06/18 13:00 92 19 167/72 (103) 93 03/06/18 12:30 92 17 163/77 (105) 93 03/06/18 12:00 97.9 92 20 178/77 (110) 94 03/06/18 11:30 91 21 172/74 (106) 94 03/06/18 11:00 91 14 168/73 (104) 96 03/06/18 10:30 91 12 178/75 (109) 97 03/06/18 10:28 91 Venturi Mask 6.00 03/06/18 10:14 91 17 169/74 (105) 95 03/06/18 10:00 75 17 172/76 (108) 95 03/06/18 09:30 91 15 175/77 (109) 96 03/06/18 09:00 91 16 167/72 (103) 96 03/06/18 08:30 90 15 172/77 (108) 93 03/06/18 08:00 97.9 90 15 174/75 (108) 94 03/06/18 06:00 89 03/06/18 04:31 17 03/06/18 04:00 97.0 90 16 178/77 (110) 99 03/06/18 04:00 90 03/06/18 02:00 90 03/06/18 00:00 97.3 91 20 158/64 (95) 99 03/06/18 00:00 91 03/05/18 22:00 91 03/05/18 21:20 98 Partial Rebreather 10.00 03/05/18 20:00 97.6 91 20 181/79 (113) 95 03/05/18 20:00 91 I/O 03/05/18 03/05/18 03/05/18 03/06/18 03/06/18 03/06/18 07:00 15:00 23:00 07:00 15:00 23:00 Intake Total 542 ml 1148 ml 400 ml 1044 ml Output Total 925 ml 600 ml 5300 ml 1500 ml Balance -383 ml 548 ml -4900 ml -456 ml Intake Oral 400 ml 900 ml 300 ml 900 ml IV Total 142 ml 248 ml 100 ml 144 ml Output Urine Total 925 ml 600 ml 1300 ml 1500 ml Hemodialysis 4000 ml # Bowel Movements 0 0 1 Result Diagram: 03/06/18 0346 03/06/18345 Objective Remarks GENERAL: MBMN WF mild sob SKIN: Warm and dry. HEAD: Normocephalic. EYES: No scleral icterus. No injection or drainage. NECK: Supple, trachea midline. No JVD or lymphadenopathy. CARDIOVASCULAR: Regular rate and rhythm without murmurs, gallops, or rubs. RESPIRATORY: Breath sounds equal bilaterally. No accessory muscle use. GASTROINTESTINAL: Abdomen soft, non-tender, nondistended. MUSCULOSKELETAL: No cyanosis, or edema. BACK: Nontender without obvious deformity. No CVA tenderness. A/P Assessment and Plan IMPRESSION: 1. Congestive heart failure. 2. Respiratory failure with hypoxia. 3. Chronic obstructive pulmonary disease. 4. Pleural effusion. 5. Coronary artery disease, status post recent stent placement. 6. History of Clostridium difficile colitis. 7. Chronic kidney disease. PLAN: Supplement 02 with 4LNC and wean 02 Aerosol nebs IV Solumedrol Cont Abx Monitor renal functions BuAaron Garza MD Mar 06, 2018 19:10
[2018-03-06] MEDS: ATORVASTATIN 40 MG TAB PO SCH (20:59)
[2018-03-06] MEDS ORDERED: CARVEDILOL 6.25 MG TAB PO SCH (21:00)
[2018-03-07] VITALS (17 sets, daily range): BP systolic 125–196; BP diastolic 60–92; PULSE 77–97; RESP 11–26; TEMP 97.6–98.7; O2SAT 93–99
[2018-03-07] MEDS: cloNIDine HCL 0.1 MG TAB PO PRN ×2 (01:13→04:56)
[2018-03-07] MEDS: methylPREDNISolone SOD SUCC 125 MG/2 ML VIAL IV PUSH SCH ×2 (01:14→16:07)
[2018-03-07] MEDS: ALPRAZolam 0.5 MG TAB PO PRN ×2 (02:08→19:58)
[2018-03-07] MEDS: RESP: ALBUTEROL 2.5 MG/IPRATROPIUM 0.5 MG NEB (SCH) NEB ×5 (04:00→20:00)
[2018-03-07] MEDS: CHLORHEXIDINE GLUCONATE 2 % 1 PACK (2 CLOTHS)(taper/protocol) TOPICAL SCH (04:00)
[2018-03-07] MEDS: CEFEPIME INJ 1,000 MG in SODIUM CHLORIDE 0.9% INJ 100 ML IV SCH ×2 (04:06→16:06)
[2018-03-07] MEDS: hydrALAZINE HCL 25 MG TAB PO SCH (04:56)
[2018-03-07 05:22] LABS: HEMATOCRIT 26.8 % (35.0-46.0); MEAN CELL VOLUME 88.8 FL (80.0-100.0); MEAN CORPUSCULAR HEMOGLOBIN 29.9 PG (27.0-34.0); MEAN CORPUSCULAR HGB CONC 33.7 % (32.0-36.0); MEAN PLATELET VOLUME 8.5 FL (7.0-11.0); PLATELET COUNT 224 TH/MM3 (150-450); RED BLOOD COUNT 3.02 MIL/MM3 (4.00-5.30); RED CELL DISTRIBUTION WIDTH 16.8 % (11.6-17.2); WHITE BLOOD COUNT 5.8 TH/MM3 (4.0-11.0)
--- NOTE | 2018-03-07 05:29 | RADRPT ---
EXAM DATE/TIME: 03/07/2018 03:13 [facility] COMPARISON: CHEST SINGLE AP, March 05, 2018, 4:51. INDICATIONS : Shortness of breath,possible pulmonary disease. MEDICAL HISTORY : Hypercholesterolemia. Myocardial infarction. Chronic obstructive pulmonary disease. CHF A-fib SURGICAL HISTORY : Coronary artery stent. ENCOUNTER: Subsequent ACUITY: 3 weeks PAIN SCORE: Non-responsive. LOCATION: Bilateral chest FINDINGS: A single view of the chest demonstrates diffuse bilateral airspace disease and bilateral pleural effu sions. Cardiomegaly. Right jugular central line in stable position. Osseous structures are intact. CONCLUSION: Diffuse pulmonary edema and pleural effusions. Je Fletcher MD on March 07, 2018 at 5:27 Board Certified Radiologist. This report was verified electronically.
[2018-03-07 05:31] LABS: ALBUMIN 2.5 GM/DL (3.4-5.0); BICARBONATE 27.9 MEQ/L (21.0-32.0); CALCIUM 8.6 MG/DL (8.5-10.1); CREATININE 2.32 MG/DL (0.50-1.00)
[2018-03-07 05:37] LABS: DIRECT BILIRUBIN ADULT 0.1 MG/DL (0.0-0.2); INDIRECT BILIRUBIN 0.1 MG/DL (0.0-0.8); PHOSPHORUS 4.1 MG/DL (2.5-4.9); TOTAL BILIRUBIN ADULT 0.2 MG/DL (0.2-1.0); TOTAL PROTEIN 6.2 GM/DL (6.4-8.2)
[2018-03-07] MEDS: ISOSORBIDE MONONITRATE 60 MG CR TAB (IMDUR) PO SCH (06:43)
[2018-03-07] MEDS ORDERED: LABETALOL HCL 100 MG/20 ML VIAL IV PUSH PRN (07:30)
[2018-03-07] MEDS ORDERED: NITROGLYCERIN 2% OINT 1 GM PACKET TOPICAL PRN (07:30)
--- NOTE | 2018-03-07 07:34 | HHI.CCPN ---
Subjective Remarks/Hospital Course Patient is a 67-year-old female with past medical history of COPD on home oxygen 3L, CHF, probable diastolic heart failure (echo on 01/03/18 EF of 55- 60%), chronic kidney disease with baseline creatinine 2.5-3, chronic anemia, diabetes mellitus, was admitted to the hospitalist service yesterday with increasing shortness of breath likely secondary to CHF exacerbation. She also reported increase in her bilateral lower extremity edema. Chest x-ray showed congestive heart failure and large left pleural effusion. Patient was placed on IV diuretics breathing treatments and admitted to ICU under hospitalist. Since a.m. today patient had been having increasing shortness of breath and increasing oxygen requirement. Due to hypoxia she was placed on 100% nonrebreather. Critical care medicine was consulted for acute hypoxemic respiratory failure. I immediately evaluated the patient. She appeared to be in moderate to severe respiratory distress, tachypneic oxygen saturation barely 90% on 100% nonrebreather. Bedside ultrasound showed large left pleural effusion. I emergently did a thoracentesis and removed 1.6 L of clear straw- colored pleural fluid with improvement in oxygen saturation. Fluid studies are pending at this time. Will give IV Solu Medrol 100 mg 1 and 40 every 12. Scheduled breathing treatments. Starts Spiriva and Symbicort. Empiric cefepime for COPD exacerbation. Continue IV Lasix but increase dose to 40 mg every 8 hours, and additional 40 mg x1 IV now. Patient had hemoglobin 6.5 today and was given 2 units of PRBC. She reports history of chronic anemia also patient's father of colon cancer age of [address]. [address] 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 Will consult GI once her respiratory status stabilizes. 6: Remains critically ill hypoxemic, more acidemic and hyperkalemic. Potassium is 6.5 creatinine 3. Despite Bumex infusion, patient has developed recurrent bilateral pleural effusions. ABG 7.24/39/61 with BE -10. Hyperkalemia is being treated with 2 A of bicarb, calcium gluconate IV, IV insulin 5 units, dextrose 1 amp, and Kayexalate 30 g. Due to fluid overload hypoxemia acidosis and hyperkalemia I have contacted Dr. Toro. I will Place Vas-Cath emergently and start hemodialysis. Patient had thoracentesis with 1.6 L of pleural fluid removed from left side yesterday 03/05: IHD yesterday. per nephrology, wants to use loop diuretics for additional volume removal, but not making adequate urine to accomplish this. will add 1 dose Diuril to her bumex drip and 1 dose concentrated albumin. remains on partial NRB. 03/06: Currently on Venturi mask at 6 L 50%. States she is breathing much better at the present time. Remains on budesonide drip at 1 mg an hour. Subjective 03/07: Currently on nasal cannula 2 L. Hypertensive overnight. Denies headache, chest pain or shortness of breath. Remains on bumetanide drip at 0.5 mg an hour. One bowel movement Objective Vital Signs Date Time Temp Pulse Resp B/P (MAP) Pulse Ox O2 Delivery O2 Flow Rate FiO2 03/07/18 04:00 98.7 78 19 195/79 (117) 95 03/06/18 21:18 Nasal Cannula 2.00 03/04/18 08:02 50 Intake and Output 03/07/18 03/07/18 03/08/18 08:00 16:00 00:00 Intake Total 606 ml Output Total 1600 ml Balance -994 ml Result Diagram: 03/07/18 0435 03/07/18 0435 Other Results Microbiology Date/Time Source Procedure Growth Status 03/03/18 13:10 Fluid Pleural Fluid Fungal Smear - Final NO FUNGAL ELEMENTS SEEN. Resulted 03/03/18 13:10 Fluid Pleural Fluid Fungal Culture Pending Resulted Imaging Last Impressions Chest X-Ray 03/07/18 0600 Signed Impressions: Service Date/Time: Wednesday, March 07, 2018 03:13 - CONCLUSION: Diffuse pulmonary edema and pleural effusions. Je Fletcher MD Objective Remarks GENERAL: 67-year-old female lying in bed Venturi mask in no acute distress SKIN: No rashes, ecchymoses or lesions. Cool and dry. HEAD: Atraumatic. Normocephalic. EYES: Pupils equal round and reactive. Extraocular motions intact. ENT: Uvula midline. Airway patent. NECK: Trachea midline. No JVD or lymphadenopathy. Right IJ hemodialysis catheter is clean dry and intact CARDIOVASCULAR: RRR. S1, S2. No S4. No S3. Without murmurs, gallops, or rubs. RESPIRATORY: Air entry diminished bilaterally. Coarse crackles appreciated bilateral lower lobes posteriorly are left greater than right GASTROINTESTINAL: Abdomen soft, non-tender, nondistended. Hypoactive bowel sounds appreciated no hepato-splenomegaly MUSCULOSKELETAL: 1+ bilateral lower extremity edema that extends up to the thighs. Signs of wrinkling/pruning. Surgical scar right lower leg from previous dog bite repair NEUROLOGICAL: Awake and alert. Motor and sensory grossly within normal limits. Normal speech. Urinary Catheter: Yes Assessment to: Continue Lim insert reason: ICU Pt Getting Diuretics Vascular Central Line Catheter: No Assessment to: Continue A/P Assessment and Plan PLAN: NEURO/PSYCH: Anxiety disorder NOS Diabetic retinopathy Diabetic neuropathy Chronic pain syndrome Acetaminophen 650 mg p.o. every 4 hours as needed fever Hydrocodone/acetaminophen 7.5/325 with 1 tablet every 4 hours as needed pain 3-5 Alprazolam 0.5 mg p.o. every 8 hours as needed anxiety RESP: Acute on chronic hypoxemic respiratory failure secondary to COPD/large left pleural effusion COPD -3 L oxygen dependent Currently on nasal cannula at 2 L to maintain saturations greater than 92% Incentive spirometry while awake -Status post emergency left thoracentesis with 1.6 L straw-colored fluid removed Chest x-ray 03/07 reveals left greater than right pleural effusion -03/04 Vas-Cath for emergent hemodialysis -Continue albuterol/ipratropium aerosols every 4 hours with albuterol aerosols every 2 hours as needed for dyspnea -Continue budesonide/formoterol 160/4.5 2 puffs twice daily -BiPAP when necessary, EzPap acapella ordered -Pulmonary Dr. Blankenship consulted At home on furosemide 40 mg p.o. twice daily and cephalexin 12.5 mg p.o. daily CV: Coronary artery disease status post stent 2 Essential hypertension Congestive heart failure likely diastolic Dyslipidemia Paroxysmal atrial fibrillation -Chest x-ray and BNP elevation consistent with CHF exacerbation -Increasing pleural effusions despite thoracentesis and Bumetanide infusion -Vas-Cath placement and hemodialysis 03/04 -Continue home antihypertensives. Including nifedipine extended release 30 mg twice daily, doxazosin 2 mg p.o. daily increased to 4 mg daily, carvedilol 6.25 mg p.o. twice daily decreased to 12.5 mg twice daily and hydralazine 75 mg every 8 hours increased to 100 mg every 8 hours Continue prasugrel 10 mg p.o. daily and aspirin 81 mg p.o. daily Continue atorvastatin 40 mg p.o. daily 2-D echo revealed EF 55% in Dec 2017. On methylprednisolone succinate 40 mg IV every 12 hours Add a Clevidipine drip if needed GI: Hiatal hernia Hypoalbuminemia -advance diet to renal diet. -Famotidine for GI prophylaxis Docusate sodium/senna 1 tablet twice daily for bowel regimen Renal/: Acute kidney injury -Discussed with Dr. Toro, Place Vas-Cath 03/04 for intermittent hemodialysis -Monitor renal function closely. Lim catheter. -Continue bumetanide infusion currently 0.5 mg an hour Accurate I's and O nephrology following.. ID: -F/U sputum culture, empiric cefepime 1 g IV every 12 hours Pleural fluid cultures 03/03 no growth to date HEME: -Monitor CBC, CMP, coags On iron sulfate 325 mg p.o. twice daily ENDO: Diabetes mellitus Currently Novulin N 15 units in morning 5 units at night Continue with sliding scale insulin/moderate regimen of Novulog PROPH: -Bilateral lower extremity SCDs. Heparin 5000 units subcutaneous every 12. Famotidine for GI prophylaxis LINES: -Utilize peripheral IVs, central line if needed Level 2 follow-up Chao Gamble MD Mar 07, 2018 07:34
[2018-03-07] MEDS ORDERED: CLEVIDIPINE INJ 50 ML IV PRN (07:45)
[2018-03-07] MEDS ORDERED: INSULIN HUMAN NPH 1,000 UNITS/10 ML VIAL SQ SCH (08:00)
[2018-03-07] MEDS: CARVEDILOL 12.5 MG TAB PO SCH ×2 (08:53→19:58)
[2018-03-07] MEDS: FERROUS SULFATE 325 MG (65 MG ELEMENTAL IRON) TAB PO SCH ×2 (08:54→19:59)
[2018-03-07] MEDS: FAMOTIDINE 20 MG TAB PO SCH ×2 (08:54→19:58)
[2018-03-07] MEDS: DOCUSATE SODIUM 50 MG/SENNA 8.6 MG TAB PO SCH ×2 (08:54→19:58)
[2018-03-07] MEDS: PRASUGREL 10 MG TAB PO SCH (08:54)
[2018-03-07] MEDS: ASPIRIN 81 MG CHEW TAB CHEW SCH (08:54)
[2018-03-07] MEDS: NIFEdipine 30 MG SUSTAINED RELEASE TAB PO SCH ×2 (08:54→19:58)
[2018-03-07] MEDS: HEPARIN SODIUM - SQ 10,000 UNITS/ML VIAL SQ SCH ×2 (08:55→19:58)
[2018-03-07] MEDS: TIOTROPIUM BROMIDE 18 MCG INH INH SCH (08:59)
[2018-03-07] MEDS: BUDESONIDE-FORMOTEROL 160/4.5 MCG INHALER INH SCH ×2 (08:59→19:57)
[2018-03-07] MEDS: SODIUM CHLORIDE 0.9% FLUSH 10 ML FLUSH IV FLUSH SCH ×2 (09:00→19:59)
[2018-03-07] MEDS: INSULIN ASPART SUPPLEMENTAL SCALE SQ SCH ×4 (09:00→19:57)
--- NOTE | 2018-03-07 10:29 | HHI.NPPN ---
Subjective History of Present Illness Patient is a 67 year old female with past medical history of Diabetes mellitus, hypertension, arthritis, hyperlipidemia, ischemic heart disease, diastolic CHF, and chronic kidney disease stage IV. Patient presented to ED with worsening shortness of breath since Wednesday and increased in bilateral lower extremity edema. She complains of weakness, fatigue, nausea, headache, dizziness, anxiety , and pain in lower extremity. Nephrology was consulted for chronic kidney disease with acute worsening and fluid overload. Patients creatine is found to be 3.06 with a GFR of 15 ml/min. Potassium level of 5.5. Patient baseline creatinine is has been running at 2.1 to 2.5 in 11/14. This is a known patient of Dr. Toro Additional Remarks Reports that she feels much better. Edema improved. (Jessica Clemons) Objective Data Data Vital Signs Date Time Temp Pulse Resp B/P (MAP) Pulse Ox O2 Delivery O2 Flow Rate FiO2 03/07/18 08:10 96 Nasal Cannula 2.00 03/07/18 04:00 98.7 78 19 195/79 (117) 95 03/07/18 00:00 98.6 92 12 189/81 (117) 96 03/06/18 21:18 96 Nasal Cannula 2.00 03/06/18 20:00 98.3 93 19 176/78 (110) 95 03/06/18 16:30 92 15 160/72 (101) 95 03/06/18 16:17 92 18 176/77 (110) 94 03/06/18 16:00 98.0 92 16 177/77 (110) 95 03/06/18 15:31 90 8 186/79 (114) 100 03/06/18 15:00 90 16 168/77 (107) 93 03/06/18 14:30 90 11 166/74 (104) 93 03/06/18 14:00 90 20 171/77 (108) 93 03/06/18 13:30 91 15 170/74 (106) 94 03/06/18 13:00 92 19 167/72 (103) 93 03/06/18 12:30 92 17 163/77 (105) 93 03/06/18 12:00 97.9 92 20 178/77 (110) 94 03/06/18 11:30 91 21 172/74 (106) 94 03/06/18 11:00 91 14 168/73 (104) 96 03/06/18 10:30 91 12 178/75 (109) 97 (Jessica Clemons) -: 03/07/1843403/07/18434 Assessment/Plan Problem List: (1) Chronic kidney disease (CKD) stage G4/A1, severely decreased glomerular filtration rate (GFR) between 15-29 mL/min/1.73 square meter and albuminuria creatinine ratio less than 30 mg/g ICD Codes: N18.4 - Chronic kidney disease, stage 4 (severe) Plan: Acute kidney injury from possible pre renal vs ATN Patient with history of Chronic kidney disease related to hypertension or diabetic renal disease. Patients baseline creatinine at 2.1-2.5 in October 2017 HD started on 03/04/19 Plan Hypertensive treated per CC Continue bumex gtt at 0.5 mg good urinary output HD planned for tomorrow May need terminal worker HD (2) Diastolic CHF, acute ICD Codes: I50.31 - Acute diastolic (congestive) heart failure Plan: thoracentesis 1.4 liters removed. (3) Anemia ICD Codes: D64.9 - Anemia, unspecified Plan: Improved after PRBC Epogen with dialysis (Jessica Clemons) Problem List: (1) Chronic kidney disease (CKD) stage G4/A1, severely decreased glomerular filtration rate (GFR) between 15-29 mL/min/1.73 square meter and albuminuria creatinine ratio less than 30 mg/g ICD Codes: N18.4 - Chronic kidney disease, stage 4 (severe) Plan: Acute kidney injury from possible pre renal vs ATN Patient with history of Chronic kidney disease related to hypertension or diabetic renal disease. Patients baseline creatinine at 2.1-2.5 in October 2017 HD started on 03/04/19 Plan Hypertensive treated per CC Continue bumex gtt at 0.5 mg good urinary output HD planned for tomorrow May need prison HD. Patient seen and examine, agree with above. Creatinine is slightly better, and urine out put increased. will watch for renal recovery. (2) Diastolic CHF, acute ICD Codes: I50.31 - Acute diastolic (congestive) heart failure Plan: thoracentesis 1.4 liters removed. (3) Anemia ICD Codes: D64.9 - Anemia, unspecified Plan: Improved after PRBC Epogen with dialysis (Flavio Toro MD) Jessica Clemons Mar 07, 2018 10:29 Flavio Toro MD Mar 07, 2018 19:12
[2018-03-07] MEDS: DOXAZOSIN MESYLATE 4 MG TAB PO SCH (11:37)
[2018-03-07] MEDS: hydrALAZINE HCL 20 MG/ML VIAL IV PUSH PRN (11:41)
[2018-03-07] MEDS: hydrALAZINE HCL 100 MG TAB PO SCH ×3 (16:07→22:00)
--- NOTE | 2018-03-07 16:57 | HHI.PR ---
Subjective Remarks 67 YOWF with COPD,CAD,Pl eff No Fever, cough or sp On Bumex drip Making urine Weaned to 4LNC Feels much better Objective Vital Signs Vital Signs Date Time Temp Pulse Resp B/P (MAP) Pulse Ox O2 Delivery O2 Flow Rate FiO2 03/07/18 14:00 80 03/07/18 12:00 97.8 82 17 165/72 (103) 99 03/07/18 12:00 97 03/07/18 11:00 83 11 194/92 (126) 97 03/07/18 10:00 93 03/07/18 10:00 85 19 184/81 (115) 95 03/07/18 09:00 87 15 182/84 (116) 94 03/07/18 08:50 98.0 88 17 196/85 (122) 96 03/07/18 08:10 96 Nasal Cannula 2.00 03/07/18 08:00 88 03/07/18 08:00 87 17 96 03/07/18 07:00 89 19 93 03/07/18 04:00 98.7 78 19 195/79 (117) 95 03/07/18 00:00 98.6 92 12 189/81 (117) 96 03/06/18 21:18 96 Nasal Cannula 2.00 03/06/18 20:00 98.3 93 19 176/78 (110) 95 I/O 03/06/18 03/06/18 03/06/18 03/07/18 03/07/18 03/07/18 07:00 15:00 23:00 07:00 15:00 23:00 Intake Total 400 ml 1044 ml 606 ml Output Total 5300 ml 1500 ml 1600 ml Balance -4900 ml -456 ml -994 ml Intake Oral 300 ml 900 ml 480 ml IV Total 100 ml 144 ml 126 ml Output Urine Total 1300 ml 1500 ml 1600 ml Hemodialysis 4000 ml # Bowel Movements 0 1 0 Result Diagram: 03/07/1843403/07/18434 Objective Remarks GENERAL: MBMN WF mild sob SKIN: Warm and dry. HEAD: Normocephalic. EYES: No scleral icterus. No injection or drainage. NECK: Supple, trachea midline. No JVD or lymphadenopathy. CARDIOVASCULAR: Regular rate and rhythm without murmurs, gallops, or rubs. RESPIRATORY: Breath sounds equal bilaterally. No accessory muscle use. GASTROINTESTINAL: Abdomen soft, non-tender, nondistended. MUSCULOSKELETAL: No cyanosis, or edema. BACK: Nontender without obvious deformity. No CVA tenderness. A/P Assessment and Plan IMPRESSION: 1. Congestive heart failure. 2. Respiratory failure with hypoxia. 3. Chronic obstructive pulmonary disease. 4. Pleural effusion. 5. Coronary artery disease, status post recent stent placement. 6. History of Clostridium difficile colitis. 7. Chronic kidney disease. PLAN: Supplement 02 with 4LNC and wean 02 Aerosol nebs IV Solumedrol Cont Abx Bumex Aaron Malagon MD Mar 07, 2018 16:57
[2018-03-07] MEDS: INSULIN HUMAN NPH 1,000 UNITS/10 ML VIAL SQ SCH (17:00)
[2018-03-07] MEDS: BUMETANIDE 25 MG/100 ML CONTINOUS DRIP IV SCH (19:56)
[2018-03-07] MEDS: ATORVASTATIN 40 MG TAB PO SCH (19:59)
[2018-03-08] VITALS (38 sets, daily range): BP systolic 104–164; BP diastolic 55–107; PULSE 58–85; RESP 11–23; TEMP 97.6–98.5; O2SAT 89–98
[2018-03-08] MEDS: methylPREDNISolone SOD SUCC 125 MG/2 ML VIAL IV PUSH SCH (01:15)
[2018-03-08] MEDS: CHLORHEXIDINE GLUCONATE 2 % 1 PACK (2 CLOTHS)(taper/protocol) TOPICAL SCH (03:28)
[2018-03-08] MEDS: CEFEPIME INJ 1,000 MG in SODIUM CHLORIDE 0.9% INJ 100 ML IV SCH ×2 (03:29→18:25)
[2018-03-08] MEDS: hydrALAZINE HCL 20 MG/ML VIAL IV PUSH PRN ×2 (03:29→06:48)
[2018-03-08] MEDS: RESP: ALBUTEROL 2.5 MG/IPRATROPIUM 0.5 MG NEB (SCH) NEB ×7 (03:49→23:42)
[2018-03-08 05:24] LABS: HEMATOCRIT 28.5 % (35.0-46.0); HEMOGLOBIN 9.6 GM/DL (11.6-15.3); MEAN CELL VOLUME 89.6 FL (80.0-100.0); MEAN CORPUSCULAR HEMOGLOBIN 30.2 PG (27.0-34.0); MEAN CORPUSCULAR HGB CONC 33.7 % (32.0-36.0); MEAN PLATELET VOLUME 8.6 FL (7.0-11.0); PLATELET COUNT 226 TH/MM3 (150-450); RED BLOOD COUNT 3.18 MIL/MM3 (4.00-5.30); RED CELL DISTRIBUTION WIDTH 16.5 % (11.6-17.2); WHITE BLOOD COUNT 4.8 TH/MM3 (4.0-11.0)
[2018-03-08 05:43] LABS: BICARBONATE 27.4 MEQ/L (21.0-32.0); CALCIUM 8.2 MG/DL (8.5-10.1); CREATININE 2.58 MG/DL (0.50-1.00); MAGNESIUM 1.9 MG/DL (1.5-2.5)
[2018-03-08] MEDS: ISOSORBIDE MONONITRATE 60 MG CR TAB (IMDUR) PO SCH (05:53)
[2018-03-08] MEDS: hydrALAZINE HCL 100 MG TAB PO SCH ×3 (05:53→21:14)
[2018-03-08] MEDS: INSULIN ASPART SUPPLEMENTAL SCALE SQ SCH ×4 (08:00→21:00)
--- NOTE | 2018-03-08 08:41 | HHI.CCPN ---
Subjective Remarks/Hospital Course Patient is a 67-year-old female with past medical history of COPD on home oxygen 3L, CHF, probable diastolic heart failure (echo on 01/03/18 EF of 55- 60%), chronic kidney disease with baseline creatinine 2.5-3, chronic anemia, diabetes mellitus, was admitted to the hospitalist service yesterday with increasing shortness of breath likely secondary to CHF exacerbation. She also reported increase in her bilateral lower extremity edema. Chest x-ray showed congestive heart failure and large left pleural effusion. Patient was placed on IV diuretics breathing treatments and admitted to ICU under hospitalist. Since a.m. today patient had been having increasing shortness of breath and increasing oxygen requirement. Due to hypoxia she was placed on 100% nonrebreather. Critical care medicine was consulted for acute hypoxemic respiratory failure. I immediately evaluated the patient. She appeared to be in moderate to severe respiratory distress, tachypneic oxygen saturation barely 90% on 100% nonrebreather. Bedside ultrasound showed large left pleural effusion. I emergently did a thoracentesis and removed 1.6 L of clear straw- colored pleural fluid with improvement in oxygen saturation. Fluid studies are pending at this time. Will give IV Solu Medrol 100 mg 1 and 40 every 12. Scheduled breathing treatments. Starts Spiriva and Symbicort. Empiric cefepime for COPD exacerbation. Continue IV Lasix but increase dose to 40 mg every 8 hours, and additional 40 mg x1 IV now. Patient had hemoglobin 6.5 today and was given 2 units of PRBC. She reports history of chronic anemia also patient's father of colon cancer age of [address]. [address] 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 Will consult GI once her respiratory status stabilizes. 6: Remains critically ill hypoxemic, more acidemic and hyperkalemic. Potassium is 6.5 creatinine 3. Despite Bumex infusion, patient has developed recurrent bilateral pleural effusions. ABG 7.24/39/61 with BE -10. Hyperkalemia is being treated with 2 A of bicarb, calcium gluconate IV, IV insulin 5 units, dextrose 1 amp, and Kayexalate 30 g. Due to fluid overload hypoxemia acidosis and hyperkalemia I have contacted Dr. Toro. I will Place Vas-Cath emergently and start hemodialysis. Patient had thoracentesis with 1.6 L of pleural fluid removed from left side yesterday 03/05: IHD yesterday. per nephrology, wants to use loop diuretics for additional volume removal, but not making adequate urine to accomplish this. will add 1 dose Diuril to her bumex drip and 1 dose concentrated albumin. remains on partial NRB. 03/06: Currently on Venturi mask at 6 L 50%. States she is breathing much better at the present time. Remains on budesonide drip at 1 mg an hour. 03/07: Currently on nasal cannula 2 L. Hypertensive overnight. Denies headache, chest pain or shortness of breath. Remains on bumetanide drip at 0.5 mg an hour. One bowel movement Subjective 03/08: Resting comfortably in bed in no acute distress. Remains on nasal cannula. Adjusting insulin today. Remains on bumetanide drip at 0.5 mg an hour per nephrology creatinine up to 2.5. Hemodialysis plan for today -2 L Objective Vital Signs Date Time Temp Pulse Resp B/P (MAP) Pulse Ox O2 Delivery O2 Flow Rate FiO2 03/08/18 04:00 98.5 61 15 164/72 (102) 98 03/07/18 08:10 Nasal Cannula 2.00 03/04/18 08:02 50 Intake and Output 03/08/18 03/08/18 03/09/18 08:00 16:00 00:00 Intake Total 351 ml Output Total 1100 ml Balance -749 ml Result Diagram: 03/08/18 0405 03/08/18 0405 Other Results Microbiology Date/Time Source Procedure Growth Status 03/03/18 13:10 Fluid Pleural Fluid Fungal Smear - Final NO FUNGAL ELEMENTS SEEN. Resulted 03/03/18 13:10 Fluid Pleural Fluid Fungal Culture Pending Resulted Imaging Last Impressions Chest X-Ray 03/07/18 0600 Signed Impressions: Service Date/Time: Wednesday, March 07, 2018 03:13 - CONCLUSION: Diffuse pulmonary edema and pleural effusions. Je Fletcher MD Objective Remarks GENERAL: 67-year-old female lying in bed Venturi mask in no acute distress SKIN: No rashes, ecchymoses or lesions. Cool and dry. HEAD: Atraumatic. Normocephalic. EYES: Pupils equal round and reactive. Extraocular motions intact. ENT: Uvula midline. Airway patent. NECK: Trachea midline. No JVD or lymphadenopathy. Right IJ hemodialysis catheter is clean dry and intact CARDIOVASCULAR: RRR. S1, S2. No S4. No S3. Without murmurs, gallops, or rubs. RESPIRATORY: Air entry diminished bilaterally. Coarse crackles appreciated bilateral lower lobes posteriorly are left greater than right GASTROINTESTINAL: Abdomen soft, non-tender, nondistended. Hypoactive bowel sounds appreciated no hepato-splenomegaly MUSCULOSKELETAL: 1+ bilateral lower extremity edema that extends up to the thighs. Signs of wrinkling/pruning. Surgical scar right lower leg from previous dog bite repair NEUROLOGICAL: Awake and alert. Motor and sensory grossly within normal limits. Normal speech. Urinary Catheter: Yes Assessment to: Continue Lim insert reason: Prolonged Immobilization Vascular Central Line Catheter: No Assessment to: Continue A/P Assessment and Plan PLAN: NEURO/PSYCH: Anxiety disorder NOS Diabetic retinopathy Diabetic neuropathy Chronic pain syndrome Acetaminophen 650 mg p.o. every 4 hours as needed fever Hydrocodone/acetaminophen 7.5/325 with 1 tablet every 4 hours as needed pain 3-5 Alprazolam 0.5 mg p.o. every 8 hours as needed anxiety RESP: Acute on chronic hypoxemic respiratory failure secondary to COPD/large left pleural effusion COPD -3 L oxygen dependent Currently on nasal cannula at 2 L to maintain saturations greater than 92% Incentive spirometry while awake -Status post emergency left thoracentesis with 1.6 L straw-colored fluid removed Chest x-ray 03/07 reveals left greater than right pleural effusion -03/04 Vas-Cath for emergent hemodialysis -Continue albuterol/ipratropium aerosols every 4 hours with albuterol aerosols every 2 hours as needed for dyspnea -Continue budesonide/formoterol 160/4.5 2 puffs twice daily On Tiotropium 18 micrograms inhalation daily per pulmonology -BiPAP when necessary, EzPap acapella ordered -Pulmonary Dr. Blankenship consulted At home on furosemide 40 mg p.o. twice daily CV: Coronary artery disease status post stent 2 Essential hypertension Congestive heart failure likely diastolic Dyslipidemia Paroxysmal atrial fibrillation -Chest x-ray and BNP elevation consistent with CHF exacerbation -Increasing pleural effusions despite thoracentesis and Bumetanide infusion -Vas-Cath placement and hemodialysis 03/04 -Continue home antihypertensives. Including nifedipine extended release 30 mg twice daily, doxazosin 2 mg p.o. daily increased to 4 mg daily, carvedilol 6.25 mg p.o. twice daily decreased to 12.5 mg twice daily and hydralazine 75 mg every 8 hours increased to 100 mg every 8 hours Continue prasugrel 10 mg p.o. daily and aspirin 81 mg p.o. daily Continue atorvastatin 40 mg p.o. daily 2-D echo revealed EF 55% in Dec 2017. On methylprednisolone succinate 40 mg IV every day Add a Clevidipine drip if needed GI: Hiatal hernia Hypoalbuminemia -advance diet to renal diet. -Famotidine for GI prophylaxis Docusate sodium/senna 1 tablet twice daily for bowel regimen Renal/: Acute kidney injury -Discussed with Dr. Toro, Place Vas-Cath 03/04 for intermittent hemodialysis -Monitor renal function closely. Lim catheter. -Continue bumetanide infusion currently 0.5 mg an hour Accurate I's and O nephrology following. Creatinine currently 2.53. ID: -F/U sputum culture, empiric cefepime 1 g IV every 12 hours Pleural fluid cultures 03/03 no growth to date HEME: -Monitor CBC, CMP, coags On iron sulfate 325 mg p.o. twice daily ENDO: Diabetes mellitus Currently Novulin N 8 units in morning 4 units at night Continue with sliding scale insulin/moderate regimen of Novulog PROPH: -Bilateral lower extremity SCDs. Heparin 5000 units subcutaneous every 12. Famotidine for GI prophylaxis LINES: -Utilize peripheral IVs, central line if needed Level 2 follow-up Stable from intensive medicine standpoint. Okay to transfer to stepdown unit. Hospitalist to assume care in a.m. 03/09 Chao Gamble MD Mar 08, 2018 08:41
[2018-03-08] MEDS: GENTAMICIN SULFATE 20 MG/2 ML VIAL OTHER PRN (09:08)
[2018-03-08] MEDS: HEPARIN SODIUM - IV 10,000 UNITS/10 ML VIAL PRN (09:08)
[2018-03-08] MEDS: CARVEDILOL 12.5 MG TAB PO SCH ×2 (12:05→21:14)
[2018-03-08] MEDS: FERROUS SULFATE 325 MG (65 MG ELEMENTAL IRON) TAB PO SCH ×2 (12:05→21:14)
[2018-03-08] MEDS: FAMOTIDINE 20 MG TAB PO SCH ×2 (12:07→21:14)
[2018-03-08] MEDS: NIFEdipine 30 MG SUSTAINED RELEASE TAB PO SCH ×2 (12:07→21:14)
[2018-03-08] MEDS: PRASUGREL 10 MG TAB PO SCH (12:07)
[2018-03-08] MEDS: HEPARIN SODIUM - SQ 10,000 UNITS/ML VIAL SQ SCH ×2 (12:08→21:14)
[2018-03-08] MEDS: methylPREDNISolone SOD SUCC 40 MG/1 ML VIAL IV PUSH SCH (12:08)
[2018-03-08] MEDS: DOCUSATE SODIUM 50 MG/SENNA 8.6 MG TAB PO SCH ×2 (12:08→21:14)
[2018-03-08] MEDS: DOXAZOSIN MESYLATE 4 MG TAB PO SCH (12:09)
[2018-03-08] MEDS: MUPIROCIN 2% OINT 1 APPLIC/GM SYR EACH NARE SCH ×2 (12:09→21:14)
[2018-03-08] MEDS: ASPIRIN 81 MG CHEW TAB CHEW SCH (12:09)
[2018-03-08] MEDS: BUMETANIDE 25 MG/100 ML CONTINOUS DRIP IV SCH (12:10)
[2018-03-08] MEDS: SODIUM CHLORIDE 0.9% FLUSH 10 ML FLUSH IV FLUSH SCH ×2 (12:11→21:15)
[2018-03-08] MEDS: TIOTROPIUM BROMIDE 18 MCG INH INH SCH (14:43)
[2018-03-08] MEDS: BUDESONIDE-FORMOTEROL 160/4.5 MCG INHALER INH SCH ×2 (14:43→21:15)
--- NOTE | 2018-03-08 15:07 | HHI.NPPN ---
Subjective History of Present Illness Patient is a 67 year old female with past medical history of Diabetes mellitus, hypertension, arthritis, hyperlipidemia, ischemic heart disease, diastolic CHF, and chronic kidney disease stage IV. Patient presented to ED with worsening shortness of breath since Wednesday and increased in bilateral lower extremity edema. She complains of weakness, fatigue, nausea, headache, dizziness, anxiety , and pain in lower extremity. Nephrology was consulted for chronic kidney disease with acute worsening and fluid overload. Patients creatine is found to be 3.06 with a GFR of 15 ml/min. Potassium level of 5.5. Patient baseline creatinine is has been running at 2.1 to 2.5 in 11/14. This is a known patient of Dr. Toro Additional Remarks Shortness of breath has improved. Lower extremity edema is mild now. On bumex gtt. (Jessica Clemons) Review of Systems Respiratory Respiratory Remarks denies SOB (Jessica Clemons) Cardiovascular Cardiac Remarks Denies CP (Jessica Clemons) Gastrointestinal GI Remarks Denies abdominal pain (Jessica Clemons) Objective Data Data 03/08/18 03/09/18 19:00 07:00 Output Total 2000 ml Balance -2000 ml Hemodialysis 2000 ml Vital Signs Date Time Temp Pulse Resp B/P (MAP) Pulse Ox O2 Delivery O2 Flow Rate FiO2 03/08/18 14:00 81 03/08/18 13:16 81 15 149/86 (107) 91 03/08/18 13:00 80 17 135/63 (87) 89 03/08/18 12:45 80 14 139/65 (89) 90 03/08/18 12:30 61 17 140/60 (86) 91 03/08/18 12:15 80 14 146/64 (91) 93 03/08/18 12:00 81 03/08/18 12:00 97.6 81 23 138/98 (111) 93 03/08/18 11:46 81 19 145/107 (120) 91 03/08/18 11:31 81 16 139/65 (89) 95 03/08/18 11:15 81 12 109/55 (73) 95 03/08/18 11:00 83 18 104/55 (71) 95 03/08/18 10:45 83 18 104/58 (73) 95 03/08/18 10:30 83 12 107/59 (75) 95 03/08/18 10:15 84 15 108/56 (73) 95 03/08/18 10:00 84 03/08/18 10:00 84 14 104/56 (72) 93 03/08/18 09:45 85 19 107/57 (74) 91 03/08/18 09:30 85 18 114/58 (76) 92 03/08/18 09:16 96 Nasal Cannula 2.00 03/08/18 09:15 63 21 127/56 (79) 91 03/08/18 09:00 63 18 136/64 (88) 94 03/08/18 08:45 64 19 145/66 (92) 95 03/08/18 08:00 62 03/08/18 08:00 97.7 62 17 163/72 (102) 97 03/08/18 07:00 62 16 151/69 (96) 98 03/08/18 04:00 98.5 61 15 164/72 (102) 98 03/08/18 00:00 98.1 58 17 133/63 (86) 97 03/07/18 20:00 98.7 78 17 125/60 (81) 95 03/07/18 18:00 78 17 160/70 (100) 96 03/07/18 18:00 78 03/07/18 17:00 77 16 146/67 (93) 96 03/07/18 16:00 78 03/07/18 16:00 97.6 78 26 128/61 (83) 95 03/07/18 15:00 78 16 145/65 (91) 95 (Jessica Clemons) -: 03/08/18 0405 03/08/18 0405 Imaging Last Impressions Chest X-Ray 03/07/18 0600 Signed Impressions: Service Date/Time: Wednesday, March 07, 2018 03:13 - CONCLUSION: Diffuse pulmonary edema and pleural effusions. Je Fletcher MD Tubes & Lines: Vas-Cath Tubes & Lines Comment right chest wall (Jessica Clemons) Physical Exam General Appearance: No Acute Distress, Comfortable (Jessica Clemons) Eyes Eye Exam: Pupils Equal (Jessica Clemons) Pulmonary Resp Exam: Breath Sounds Equal, No Distress, Decreased Bases (Jessica Clemons) Cardiology CV Exam: Regular (Jessica Clemons) Gastrointestinal/Abdomen GI Exam: Soft, Non-Tender, Bowel Sounds Present (Jessica Clemons) Genitourinary Exam: Flank Non-Tender (Jessica Clemons) Integumentary Skin Exam: Clear, Warm, Dry (Jessica Clemons) Extremeties Extremities Exam: Trace Edema (Jsesica Clemons) Neurologic Neuro Exam: Alert, Awake (Jessica Clemons) Psychiatric Psych Exam: Appropriate Responses (Jessica Clemons) Assessment/Plan Problem List: (1) Chronic kidney disease (CKD) stage G4/A1, severely decreased glomerular filtration rate (GFR) between 15-29 mL/min/1.73 square meter and albuminuria creatinine ratio less than 30 mg/g ICD Codes: N18.4 - Chronic kidney disease, stage 4 (severe) Plan: Acute kidney injury from possible pre renal vs ATN Patient with history of Chronic kidney disease related to hypertension or diabetic renal disease. Patients baseline creatinine at 2.1-2.5 in October 2017 HD started on 03/04/19 Plan Will discontinue bumex gtt and change to lasix Avoid nephrotoxins. Renal dose antibiotics HD this morning UF of 2 liters May need correction HD however creatinine has been improving at 2.58 today dialysis planned for and then will reassess for dialysis need. (2) Diastolic CHF, acute ICD Codes: I50.31 - Acute diastolic (congestive) heart failure Plan: thoracentesis 1.4 liters removed. (3) Anemia ICD Codes: D64.9 - Anemia, unspecified Plan: Improved after PRBC Epogen with dialysis (Jessica Clemons) Problem List: (1) Chronic kidney disease (CKD) stage G4/A1, severely decreased glomerular filtration rate (GFR) between 15-29 mL/min/1.73 square meter and albuminuria creatinine ratio less than 30 mg/g ICD Codes: N18.4 - Chronic kidney disease, stage 4 (severe) Plan: Acute kidney injury from possible pre renal vs ATN Patient with history of Chronic kidney disease related to hypertension or diabetic renal disease. Patients baseline creatinine at 2.1-2.5 in October 2017 HD started on 03/04/19 Plan Will discontinue bumex gtt and change to lasix Avoid nephrotoxins. Renal dose antibiotics HD this morning UF of 2 liters May need horser up HD however creatinine has been improving at 2.58 today dialysis planned for and then will reassess for dialysis need. Patient seen and examined, agree with above. HD done and 2 liters removed. Follow the urine out pout and BMP. HD as needed. (2) Diastolic CHF, acute ICD Codes: I50.31 - Acute diastolic (congestive) heart failure Plan: thoracentesis 1.4 liters removed. (3) Anemia ICD Codes: D64.9 - Anemia, unspecified Plan: Improved after PRBC Epogen with dialysis (Flavio Toro MD) Jessica Clemons Mar 08, 2018 15:07 Flavio Toro MD Mar 08, 2018 17:45
[2018-03-08] MEDS: INSULIN HUMAN NPH 1,000 UNITS/10 ML VIAL SQ SCH (18:26)
[2018-03-08] MEDS: FUROSEMIDE 100 MG/10 ML VIAL IV PUSH SCH (18:27)
--- NOTE | 2018-03-08 20:19 | HHI.PR ---
Subjective Remarks 67 YOWF with COPD,CAD,Pl eff No Fever, cough or sp Making urine Weaned to 4LNC Feels much better Had HD, 2L fluid removed Had IV Lasix Objective Vital Signs Vital Signs Date Time Temp Pulse Resp B/P (MAP) Pulse Ox O2 Delivery O2 Flow Rate FiO2 03/08/18 18:00 85 03/08/18 16:30 83 11 159/74 (102) 94 03/08/18 16:15 63 15 149/67 (94) 93 03/08/18 16:00 62 03/08/18 16:00 97.8 62 16 148/70 (96) 92 03/08/18 15:45 62 17 144/61 (88) 92 03/08/18 15:30 63 17 154/70 (98) 92 03/08/18 15:15 81 17 153/70 (97) 92 03/08/18 15:00 81 21 143/65 (91) 93 03/08/18 14:45 81 18 143/65 (91) 91 03/08/18 14:30 81 17 119/60 (79) 91 03/08/18 14:15 82 22 132/61 (84) 90 03/08/18 14:00 81 03/08/18 14:00 81 14 132/55 (80) 91 03/08/18 13:16 81 15 149/86 (107) 91 03/08/18 13:00 80 17 135/63 (87) 89 03/08/18 12:45 80 14 139/65 (89) 90 03/08/18 12:30 61 17 140/60 (86) 91 03/08/18 12:15 80 14 146/64 (91) 93 03/08/18 12:00 81 03/08/18 12:00 97.6 81 23 138/98 (111) 93 03/08/18 11:46 81 19 145/107 (120) 91 03/08/18 11:31 81 16 139/65 (89) 95 03/08/18 11:15 81 12 109/55 (73) 95 03/08/18 11:00 83 18 104/55 (71) 95 03/08/18 10:45 83 18 104/58 (73) 95 03/08/18 10:30 83 12 107/59 (75) 95 03/08/18 10:15 84 15 108/56 (73) 95 03/08/18 10:00 84 03/08/18 10:00 84 14 104/56 (72) 93 03/08/18 09:45 85 19 107/57 (74) 91 03/08/18 09:30 85 18 114/58 (76) 92 03/08/18 09:16 96 Nasal Cannula 2.00 03/08/18 09:15 63 21 127/56 (79) 91 03/08/18 09:00 63 18 136/64 (88) 94 03/08/18 08:45 64 19 145/66 (92) 95 03/08/18 08:00 62 03/08/18 08:00 97.7 62 17 163/72 (102) 97 03/08/18 07:00 62 16 151/69 (96) 98 03/08/18 04:00 98.5 61 15 164/72 (102) 98 03/08/18 00:00 98.1 58 17 133/63 (86) 97 I/O 03/07/18 03/07/18 03/07/18 03/08/18 03/08/18 03/08/18 07:00 15:00 23:00 07:00 15:00 23:00 Intake Total 606 ml 950 ml 351 ml 606 ml Output Total 1600 ml 1700 ml 1100 ml 2000 ml 1250 ml Balance -994 ml -750 ml -749 ml -2000 ml -644 ml Intake Oral 480 ml 850 ml 240 ml 600 ml IV Total 126 ml 100 ml 111 ml 6 ml Output Urine Total 1600 ml 1700 ml 1100 ml 1250 ml Hemodialysis 2000 ml # Bowel Movements 0 0 0 1 Result Diagram: 03/08/1840403/08/18404 Objective Remarks GENERAL: MBMN WF mild sob SKIN: Warm and dry. HEAD: Normocephalic. EYES: No scleral icterus. No injection or drainage. NECK: Supple, trachea midline. No JVD or lymphadenopathy. CARDIOVASCULAR: Regular rate and rhythm without murmurs, gallops, or rubs. RESPIRATORY: Breath sounds equal bilaterally. No accessory muscle use. GASTROINTESTINAL: Abdomen soft, non-tender, nondistended. MUSCULOSKELETAL: No cyanosis, or edema. BACK: Nontender without obvious deformity. No CVA tenderness. A/P Assessment and Plan IMPRESSION: 1. Congestive heart failure. 2. Respiratory failure with hypoxia. 3. Chronic obstructive pulmonary disease. 4. Pleural effusion. 5. Coronary artery disease, status post recent stent placement. 6. History of Clostridium difficile colitis. 7. Chronic kidney disease. PLAN: Supplement 02 with 4LNC and wean 02 Aerosol nebs IV Solumedrol Cont Abx Aaron Blankenship MD Mar 08, 2018 20:19
[2018-03-08] MEDS: ALPRAZolam 0.5 MG TAB PO PRN (21:14)
[2018-03-08] MEDS: ATORVASTATIN 40 MG TAB PO SCH (21:14)
[2018-03-09] VITALS (20 sets, daily range): BP systolic 116–170; BP diastolic 63–81; PULSE 58–85; RESP 18; TEMP 97.5–98.9; O2SAT 95–97
[2018-03-09] MEDS: cloNIDine HCL 0.1 MG TAB PO PRN (02:13)
[2018-03-09] MEDS: CEFEPIME INJ 1,000 MG in SODIUM CHLORIDE 0.9% INJ 100 ML IV SCH ×2 (04:17→17:13)
--- NOTE | 2018-03-09 05:12 | RADRPT ---
EXAM DATE/TIME: 03/09/2018 04:13 [facility] COMPARISON: CHEST SINGLE AP, March 07, 2018, 3:13. INDICATIONS : Short of breath. MEDICAL HISTORY : Hypercholesterolemia. Myocardial infarction. Chronic obstructive pulmonary disease. CHF A-fib SURGICAL HISTORY : Coronary artery stent. ENCOUNTER: Subsequent ACUITY: 3 weeks PAIN SCORE: 0/10 LOCATION: Bilateral chest FINDINGS: A single view of the chest demonstrates improving bilateral airspace disease. Cardiomegaly and modera te left pleural effusion. Suspected right pleural effusion as well. Right jugular line stable in posi tion. Osseous structures are intact. CONCLUSION: Improving airspace disease. Bibasilar densities and pleural effusions. Je Fletcher MD on March 09, 2018 at 5:09 Board Certified Radiologist. This report was verified electronically.
[2018-03-09] MEDS: hydrALAZINE HCL 100 MG TAB PO SCH ×3 (06:29→22:00)
[2018-03-09] MEDS: ISOSORBIDE MONONITRATE 60 MG CR TAB (IMDUR) PO SCH (06:29)
[2018-03-09 06:57] LABS: AUTOMATED NEUTROPHIL # 4.6 TH/MM3 (1.8-7.7); BASOPHIL % 0.3 % (0.0-2.0); EOSINOPHIL % 0.2 % (0.0-4.0); HEMOGLOBIN 10.3 GM/DL (11.6-15.3); LYMPH % 13.7 % (9.0-44.0); LYMPHOCYTE # 0.8 TH/MM3 (1.0-4.8); MEAN CELL VOLUME 88.9 FL (80.0-100.0); MEAN CORPUSCULAR HEMOGLOBIN 30.4 PG (27.0-34.0); MEAN CORPUSCULAR HGB CONC 34.2 % (32.0-36.0); MEAN PLATELET VOLUME 8.5 FL (7.0-11.0); MONO % 8.9 % (0.0-8.0); MONOCYTE # 0.5 TH/MM3 (0-0.9); NEUT % 76.9 % (16.0-70.0); PLATELET COUNT 219 TH/MM3 (150-450); RED BLOOD COUNT 3.37 MIL/MM3 (4.00-5.30); RED CELL DISTRIBUTION WIDTH 16.3 % (11.6-17.2)
[2018-03-09 07:28] LABS: ALKALINE PHOSPHATASE 106 U/L (45-117); ALT (GPT) 13 U/L (10-53); AST (GOT) 11 U/L (15-37); BICARBONATE 27.3 MEQ/L (21.0-32.0); BLOOD UREA NITROGEN 49 MG/DL (7-18); CALCIUM 8.5 MG/DL (8.5-10.1); CHLORIDE 101 MEQ/L (98-107); CREATININE 2.09 MG/DL (0.50-1.00); GLOMERULAR FILTRATION RATE 24 ML/MIN (>89); GLUCOSE,RANDOM 315 MG/DL (74-106); MAGNESIUM 1.9 MG/DL (1.5-2.5); PHOSPHORUS 3.7 MG/DL (2.5-4.9); SODIUM (NA) 138 MEQ/L (136-145); TOTAL BILIRUBIN ADULT 0.3 MG/DL (0.2-1.0); TOTAL PROTEIN 5.5 GM/DL (6.4-8.2)
[2018-03-09] MEDS: INSULIN HUMAN NPH 1,000 UNITS/10 ML VIAL SQ SCH ×2 (08:00→17:13)
[2018-03-09] MEDS: MUPIROCIN 2% OINT 1 APPLIC/GM SYR EACH NARE SCH (09:00)
[2018-03-09] MEDS: RESP: ALBUTEROL 2.5 MG/IPRATROPIUM 0.5 MG NEB (SCH) NEB ×4 (09:14→20:05)
[2018-03-09] MEDS: PRASUGREL 10 MG TAB PO SCH (09:55)
[2018-03-09] MEDS: DOCUSATE SODIUM 50 MG/SENNA 8.6 MG TAB PO SCH ×2 (09:55→21:00)
[2018-03-09] MEDS: ASPIRIN 81 MG CHEW TAB CHEW SCH (09:55)
[2018-03-09] MEDS: DOXAZOSIN MESYLATE 4 MG TAB PO SCH (09:55)
[2018-03-09] MEDS: CARVEDILOL 12.5 MG TAB PO SCH ×2 (09:56→20:58)
[2018-03-09] MEDS: NIFEdipine 30 MG SUSTAINED RELEASE TAB PO SCH ×2 (09:56→20:58)
[2018-03-09] MEDS: FERROUS SULFATE 325 MG (65 MG ELEMENTAL IRON) TAB PO SCH ×2 (09:56→20:58)
[2018-03-09] MEDS: FAMOTIDINE 20 MG TAB PO SCH ×2 (09:58→20:58)
[2018-03-09] MEDS: FUROSEMIDE 100 MG/10 ML VIAL IV PUSH SCH (10:04)
[2018-03-09] MEDS: HEPARIN SODIUM - SQ 10,000 UNITS/ML VIAL SQ SCH ×2 (10:05→20:58)
[2018-03-09] MEDS: methylPREDNISolone SOD SUCC 40 MG/1 ML VIAL IV PUSH SCH (10:05)
[2018-03-09] MEDS: SODIUM CHLORIDE 0.9% FLUSH 10 ML FLUSH IV FLUSH SCH ×2 (10:08→20:58)
[2018-03-09] MEDS: BUDESONIDE-FORMOTEROL 160/4.5 MCG INHALER INH SCH (11:15)
[2018-03-09] MEDS: TIOTROPIUM BROMIDE 18 MCG INH INH SCH (11:15)
[2018-03-09] MEDS: INSULIN ASPART SUPPLEMENTAL SCALE SQ SCH ×4 (11:20→23:44)
--- NOTE | 2018-03-09 15:00 | HHI.PR ---
Subjective Remarks Patient is a 67-year-old female with past medical history of COPD on home oxygen 3L, CHF, probable diastolic heart failure (echo on 01/03/18 EF of 55- 60%), chronic kidney disease with baseline creatinine 2.5-3, chronic anemia, diabetes mellitus, was admitted to the hospitalist service yesterday with increasing shortness of breath likely secondary to CHF exacerbation. She also reported increase in her bilateral lower extremity edema. Chest x-ray showed congestive heart failure and large left pleural effusion. Patient was placed on IV diuretics breathing treatments and admitted to ICU under hospitalist. Since a.m. today patient had been having increasing shortness of breath and increasing oxygen requirement. Due to hypoxia she was placed on 100% nonrebreather. Critical care medicine was consulted for acute hypoxemic respiratory failure. I immediately evaluated the patient. She appeared to be in moderate to severe respiratory distress, tachypneic oxygen saturation barely 90% on 100% nonrebreather. Bedside ultrasound showed large left pleural effusion. I emergently did a thoracentesis and removed 1.6 L of clear straw- colored pleural fluid with improvement in oxygen saturation. Fluid studies are pending at this time. Will give IV Solu Medrol 100 mg 1 and 40 every 12. Scheduled breathing treatments. Starts Spiriva and Symbicort. Empiric cefepime for COPD exacerbation. Continue IV Lasix but increase dose to 40 mg every 8 hours, and additional 40 mg x1 IV now. Patient had hemoglobin 6.5 today and was given 2 units of PRBC. She reports history of chronic anemia also patient's father of colon cancer age of [address]. [address] 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 Will consult GI once her respiratory status stabilizes. 6: Remains critically ill hypoxemic, more acidemic and hyperkalemic. Potassium is 6.5 creatinine 3. Despite Bumex infusion, patient has developed recurrent bilateral pleural effusions. ABG 7.24/39/61 with BE -10. Hyperkalemia is being treated with 2 A of bicarb, calcium gluconate IV, IV insulin 5 units, dextrose 1 amp, and Kayexalate 30 g. Due to fluid overload hypoxemia acidosis and hyperkalemia I have contacted Dr. Toro. I will Place Vas-Cath emergently and start hemodialysis. Patient had thoracentesis with 1.6 L of pleural fluid removed from left side yesterday 03/05: IHD yesterday. per nephrology, wants to use loop diuretics for additional volume removal, but not making adequate urine to accomplish this. will add 1 dose Diuril to her bumex drip and 1 dose concentrated albumin. remains on partial NRB. 03/06: Currently on Venturi mask at 6 L 50%. States she is breathing much better at the present time. Remains on budesonide drip at 1 mg an hour. 03/07: Currently on nasal cannula 2 L. Hypertensive overnight. Denies headache, chest pain or shortness of breath. Remains on bumetanide drip at 0.5 mg an hour. One bowel movement 03/08: Resting comfortably in bed in no acute distress. Remains on nasal cannula. Adjusting insulin today. Remains on bumetanide drip at 0.5 mg an hour per nephrology creatinine up to 2.5. Hemodialysis plan for today -2 L 03-09 TRANSFERRED TO OUR SERVICE TODAY OFF BUMEX DRIP NO HD TODAY STILL HAS VASCATH ON RIGHT SIDE DW RN AND PT AND CM INCREASE ACTIVITY TRANSFER OFF CIC NO CHEST PAIN LESS SOB Objective Vitals Vital Signs Date Time Temp Pulse Resp B/P (MAP) Pulse Ox O2 Delivery O2 Flow Rate FiO2 03/09/18 07:30 98.6 84 18 151/71 (97) 97 03/09/18 06:00 68 03/09/18 05:00 68 03/09/18 04:00 98.9 69 18 164/71 (102) 96 03/09/18 04:00 68 03/09/18 03:00 66 03/09/18 02:00 84 03/09/18 01:45 98.7 85 18 170/81 (110) 96 03/09/18 01:45 85 03/09/18 00:00 98.0 83 18 167/72 (103) 96 03/08/18 20:55 94 Nasal Cannula 3.00 03/08/18 20:00 98.3 85 19 124/59 (80) 92 03/08/18 18:00 85 03/08/18 16:30 83 11 159/74 (102) 94 03/08/18 16:15 63 15 149/67 (94) 93 03/08/18 16:00 62 03/08/18 16:00 97.8 62 16 148/70 (96) 92 03/08/18 15:45 62 17 144/61 (88) 92 03/08/18 15:30 63 17 154/70 (98) 92 03/08/18 15:15 81 17 153/70 (97) 92 03/08/18 15:00 81 21 143/65 (91) 93 I/O 03/08/18 03/08/18 03/08/18 03/09/18 03/09/18 03/09/18 07:00 15:00 23:00 07:00 15:00 23:00 Intake Total 351 ml 606 ml 340 ml Output Total 1100 ml 2000 ml 1250 ml 900 ml Balance -749 ml -2000 ml -644 ml -560 ml Intake Oral 240 ml 600 ml 240 ml IV Total 111 ml 6 ml 100 ml Output Urine Total 1100 ml 1250 ml 900 ml Hemodialysis 2000 ml # Bowel Movements 0 1 0 Result Diagram: 03/09/18 0515 03/09/18 0515 Other Results Laboratory Tests Test 03/07/18 04:35 03/08/18 04:05 03/09/18 05:15 White Blood Count 5.8 TH/MM3 4.8 TH/MM3 6.0 TH/MM3 Red Blood Count 3.02 MIL/MM3 3.18 MIL/MM3 3.37 MIL/MM3 Hemoglobin 9.0 GM/DL 9.6 GM/DL 10.3 GM/DL Hematocrit 26.8 % 28.5 % 30.0 % Mean Corpuscular Volume 88.8 FL 89.6 FL 88.9 FL Mean Corpuscular Hemoglobin 29.9 PG 30.2 PG 30.4 PG Mean Corpuscular Hemoglobin Concent 33.7 % 33.7 % 34.2 % Red Cell Distribution Width 16.8 % 16.5 % 16.3 % Platelet Count 224 TH/MM3 226 TH/MM3 219 TH/MM3 Mean Platelet Volume 8.5 FL 8.6 FL 8.5 FL Blood Urea Nitrogen 58 MG/DL 66 MG/DL 49 MG/DL Creatinine 2.32 MG/DL 2.58 MG/DL 2.09 MG/DL Random Glucose 144 MG/DL 174 MG/DL 315 MG/DL Total Protein 6.2 GM/DL 5.5 GM/DL Albumin 2.5 GM/DL 2.0 GM/DL Calcium Level 8.6 MG/DL 8.2 MG/DL 8.5 MG/DL Phosphorus Level 4.1 MG/DL 5.0 MG/DL 3.7 MG/DL Magnesium Level 2.0 MG/DL 1.9 MG/DL 1.9 MG/DL Alkaline Phosphatase 116 U/L 106 U/L Aspartate Amino Transf (AST/SGOT) 14 U/L 11 U/L Alanine Aminotransferase (ALT/SGPT) 24 U/L 13 U/L Total Bilirubin 0.2 MG/DL 0.3 MG/DL Direct Bilirubin 0.1 MG/DL Sodium Level 140 MEQ/L 138 MEQ/L 138 MEQ/L Potassium Level 3.9 MEQ/L 4.3 MEQ/L 4.1 MEQ/L Chloride Level 102 MEQ/L 101 MEQ/L 101 MEQ/L Carbon Dioxide Level 27.9 MEQ/L 27.4 MEQ/L 27.3 MEQ/L Anion Gap 10 MEQ/L 10 MEQ/L 10 MEQ/L Estimat Glomerular Filtration Rate 21 ML/MIN 19 ML/MIN 24 ML/MIN Indirect Bilirubin 0.1 MG/DL Neutrophils (%) (Auto) 76.9 % Lymphocytes (%) (Auto) 13.7 % Monocytes (%) (Auto) 8.9 % Eosinophils (%) (Auto) 0.2 % Basophils (%) (Auto) 0.3 % Neutrophils # (Auto) 4.6 TH/MM3 Lymphocytes # (Auto) 0.8 TH/MM3 Monocytes # (Auto) 0.5 TH/MM3 Eosinophils # (Auto) 0.0 TH/MM3 Basophils # (Auto) 0.0 TH/MM3 CBC Comment DIFF FINAL Differential Comment Free Thyroxine 1.10 NG/DL Thyroid Stimulating Hormone 3rd Gen 2.930 uIU/ML Imaging Last Impressions Chest X-Ray 03/09/18 0600 Signed Impressions: Service Date/Time: Friday, March 09, 2018 04:13 - CONCLUSION: Improving airspace disease. Bibasilar densities and pleural effusions. Je Fletcher MD Objective Remarks GENERAL: Awake alert and oriented 3 talkative and cooperative SKIN: Warm and dry. HEAD: Atraumatic. Normocephalic. EYES: Pupils equal and round. No scleral icterus. No injection or drainage. Extraocular muscles intact ENT: No nasal bleeding or discharge. Mucous membranes pink and moist. Tongue is midline NECK: Trachea midline. No JVD. Supple CARDIOVASCULAR: Regular rate and rhythm. S1-S2 no S3 or S4 RESPIRATORY: No accessory muscle use. Breath sounds equal bilaterally. Rhonchi and wheezes bilaterally throughout all garcia GASTROINTESTINAL: Abdomen soft, non-tender, nondistended. Hepatic and splenic margins not palpable. MUSCULOSKELETAL: Extremities without clubbing, cyanosis, or edema. No obvious deformities. NEUROLOGICAL: Awake and alert. No obvious cranial nerve deficits. Motor grossly within normal limits. 4 out of 5 muscle strength in the arms and legs. Normal speech. PSYCHIATRIC: Appropriate mood and affect; insight and judgment normal. Procedures RIGHT IJ VASCATH 4-6 DR CHOUDHARY Left-sided thoracentesis 4-5 DR CHOUDHARY Medications and IVs Current Medications Sodium Chloride (NS Flush) 2 ml UNSCH PRN IVF FLUSH AFTER USING IV ACCESS; Start 03/03/18 at 03:15; Stop 03/03/18 at 16:00; Status DC Furosemide (Lasix Inj) 80 mg ONCE ONCE IV PUSH Last administered on 03/03/18at 03:32; Start 03/03/18 at 03:15; Stop 03/03/18 at 03:16; Status DC Sodium Chloride 250 ml @ 15 mls/hr ONCE ONCE IV Last administered on at 05:55; Start 03/03/18 at 03:45; Stop 03/03/18 at 20:24; Status DC Furosemide (Lasix Inj) 40 mg BID@09,18 IV PUSH Last administered on 03/03/18at 07 :59; Start 03/03/18 at 09:00; Stop 03/03/18 at 13:59; Status DC Sodium Chloride (NS Flush) 2 ml UNSCH PRN IV FLUSH FLUSH AFTER USING IV ACCESS ; Start 03/03/18 at 04:45 Sodium Chloride (NS Flush) 2 ml BID IV FLUSH Last administered on 03/09/18at 10: 08; Start 03/03/18 at 09:00 Acetaminophen (Tylenol) 650 mg Q4H PRN PO TEMP > 100.4; Start 03/03/18 at 04:45 Ondansetron HCl (Zofran Inj) 4 mg Q6H PRN IVP NAUSEA OR VOMITING Last administered on 03/03/18at 09:12; Start 03/03/18 at 04:45 Naloxone HCl (Narcan Inj) 0.4 mg UNSCH PRN IV PUSH SEE LABEL COMMENTS; Start at 04:45 Senna/Docusate Sodium (Jocelyn-Colace) 1 tab BID PO Last administered on at 09:55; Start 03/03/18 at 09:00 Magnesium Hydroxide (Milk Of Magnesia Liq) 30 ml Q12H PRN PO Mild constipation ; Start 03/03/18 at 04:45 Sennosides (Senokot) 17.2 mg Q12H PRN PO Moderate constipation; Start 03/03/18 at 04:45 Bisacodyl (Dulcolax Supp) 10 mg DAILY PRN RECTAL SEVERE CONSITIPATION; Start at 04:45 Lactulose (Lactulose Liq) 30 ml DAILY PRN PO SEVERE CONSITIPATION; Start at 04:45 Albuterol/ Ipratropium (Duoneb Neb) 1 ampule Q4HR NEB PRN NEB SOB/Wheezing Last administered on 03/03/18at 09:04; Start 03/03/18 at 05:00; Stop 03/06/18 at 11: 26; Status DC Atorvastatin Calcium (Lipitor) 40 mg HS PO Last administered on 03/08/18at 21:14 ; Start 03/03/18 at 21:00 Carvedilol (Coreg) 6.25 mg Q12HR PO Last administered on 03/03/18at 07:57; Start 03/03/18 at 09:00; Stop 03/06/18 at 13:11; Status DC Clonidine (Catapres) 0.1 mg Q6H PRN PO Uncontrolled Blood Pressure Last administered on 03/07/18at 04:56; Start 03/03/18 at 05:00 Doxazosin Mesylate (Cardura) 2 mg DAILY PO Last administered on 03/06/18at 08:09 ; Start 03/03/18 at 09:00; Stop 03/07/18 at 07:30; Status DC Ferrous Sulfate (Ferrous Sulfate) 325 mg BID PO Last administered on 03/09/18at 09:56; Start 03/03/18 at 09:00 Hydralazine HCl (Apresoline) 75 mg Q8HR PO Last administered on 03/07/18at 04:56 ; Start 03/03/18 at 06:00; Stop 03/07/18 at 07:30; Status DC Isosorbide Mononitrate (Imdur) 60 mg DAILY@0700 PO Last administered on at 06:29; Start 03/03/18 at 07:00 Nifedipine (Procardia Xl) 30 mg Q12HR PO Last administered on 03/09/18at 09:56; Start 03/03/18 at 09:00 Spironolactone (Aldactone) 12.5 mg DAILY PO Last administered on 03/03/18at 07:58 ; Start 03/03/18 at 09:00; Stop 03/03/18 at 09:00; Status DC Dextrose (D50w (Vial) Inj) 50 ml UNSCH PRN IV PUSH HYPOGLYCEMIA-SEE COMMENTS; Start 03/03/18 at 05:00; Stop 03/05/18 at 15:55; Status DC Glucagon (Glucagon Inj) 1 mg UNSCH PRN OTHER HYPOGLYCEMIA-SEE COMMENTS; Start 03/03/18 at 05:00; Stop 03/06/18 at 11:38; Status DC Insulin Aspart (NovoLOG SUPPLEMENTAL SCALE) 1 ACHS SLIDING SCALE SQ Last administered on 03/05/18at 16:00; Start 03/03/18 at 08:00; Stop 03/05/18 at 15:54; Status DC Miscellaneous (Pill Splitter) 1 ea UNSCH PRN OTHER SEE LABEL COMMENTS; Start at 05:00 Miscellaneous Information Patient in critical care unit? Ass... [id number] .XX Last administered on 03/03/18at 06:45; Start 03/03/18 at 06:45 Chlorhexidine Gluconate (Chlorhexidine 2% Cloth) 3 pack DAILY@04 TOPICAL Last administered on 03/08/18at 03:28; Start 03/04/18 at 04:00; Stop 03/08/18 at 04:01 ; Status DC Chlorhexidine Gluconate (Chlorhexidine 2% Cloth) 3 pack UNSCH PRN TOPICAL HYGIENIC CARE; Start 03/03/18 at 06:45; Stop 03/08/18 at 06:41; Status DC Alprazolam (Xanax) 0.5 mg Q8H PRN PO anxiety Last administered on 03/08/18at 21: 14; Start 03/03/18 at 09:45 Atropine Sulfate (Atropine Inj) 1 mg STK-MED ONCE .ROUTE ; Start 03/03/18 at 13: 07; Stop 03/03/18 at 13:08; Status DC Albuterol/ Ipratropium (Duoneb Neb) 1 ampule Q4HR NEB NEB Last administered on 03/06/18at 15:14; Start 03/03/18 at 16:00; Stop 03/07/18 at 07:30; Status DC Methylprednisolone Sodium Succinate (SoluMEDROL INJ) 40 mg Q12H IV PUSH Last administered on 03/08/18at 01:15; Start 03/04/18 at 02:00; Stop 03/08/18 at 08:38 ; Status DC Methylprednisolone Sodium Succinate (SoluMEDROL INJ) 100 mg ONCE ONCE IV PUSH Last administered on 03/03/18at 13:52; Start 03/03/18 at 13:45; Stop 03/03/18 at 13: 50; Status DC Cefepime HCl 1000 mg/Sodium Chloride 100 ml @ 200 mls/hr Q12H IV Last administered on 03/09/18at 04:17; Start 03/03/18 at 16:00 Tiotropium Guion (Spiriva Inh) 18 mcg DAILY INH Last administered on 11:15; Start 03/03/18 at 17:00 Budesonide/ Formoterol Fumarate (Symbicort 160-4.5 Mcg Inh) 2 puff Q12HR INH Last administered on 03/09/18at 11:15; Start 03/03/18 at 14:00 Furosemide (Lasix Inj) 40 mg Q8H IV PUSH ; Start 03/03/18 at 17:00; Stop 03/03/18 at 17:15; Status DC Furosemide (Lasix Inj) 40 mg ONCE STAT IV PUSH Last administered on 03/03/18at 16:30; Start 03/03/18 at 13:58; Stop 03/03/18 at 15:59; Status DC Acetaminophen/ Hydrocodone Bitart (Geff 7.5-325 Mg) 1 tab Q6H PRN PO pain 6- 10 Last administered on 03/06/18at 02:39; Start 03/03/18 at 14:15 Famotidine (Pepcid) 20 mg BID PO Last administered on 4/7/18at 20:40; Start 03/03/18 at 21:00; Stop 03/06/18 at 08:01; Status DC Heparin Sodium (Porcine) (Heparin Inj) 5,000 units Q12HR SQ Last administered on 03/09/18at 10:05; Start 03/03/18 at 21:00 Prasugrel (Effient) 10 mg DAILY PO Last administered on 03/09/18 09:55; Start 03/04/18 at 09:00 Bumetanide 100 ml Q24H IV Last administered on 03/05/18at 17:25; Start 03/03/18 at 17:15; Stop 03/06/18 at 16:55; Status DC Non-Formulary Medication BUMEX 2 MG IVP X 1 DOSE ONCE ONCE IV ; Start 03/03/18 at 18:45; Stop 03/03/18 at 18:46; Status DC Sodium Polystyrene Sulfonate (Kayexalate Liq) 30 gm ONCE ONCE PO Last administered on 03/04/18at 08:59; Start 03/04/18 at 09:00; Stop 03/04/18 at 09:01; Status DC Dextrose (D50w (Syr) Inj) 25 ml ONCE ONCE IV PUSH Last administered on 09:03; Start 03/04/18 at 09:00; Stop 03/04/18 at 09:01; Status DC Insulin Human Regular (NovoLIN R INJ) 5 units ONCE ONCE IV PUSH Last administered on 03/04/18 09:07; Start 03/04/18 at 09:00; Stop 03/04/18 at 09:01; Status DC Sodium Bicarbonate (Sodium Bicarbonate 8.4% Inj) 50 meq ONCE ONCE IV PUSH Last administered on 03/04/18 09:06; Start 03/04/18 at 09:00; Stop 03/04/18 at 09: 01; Status DC Calcium Gluconate 2 gm/Dextrose 120 ml @ 120 mls/hr ONCE ONCE IV Last administered on 03/04/18at 10:20; Start 03/04/18 at 09:00; Stop 03/04/18 at 09:59; Status DC Sodium Bicarbonate 100 meq/Dextrose 1,100 ml @ 42 mls/hr Q24H IV Last administered on 03/04/18at 10:20; Start 03/04/18 at 09:00; Stop 03/04/18 at 18:51; Status DC Sodium Chloride 1,000 ml @ 0 mls/hr Q0M PRN OTHER For Prime & Rinse Back Last administered on 03/06/18at 01:24; Start 03/04/18 at 09:15 Heparin Sodium (Porcine) (Heparin Inj) 8,000 units UNSCH PRN IV FLUSH WITH DIALYSIS; Start 03/04/18 at 09:15 Sodium Chloride 1,000 ml @ 200 mls/hr Q5H PRN IV WITH DIALYSIS; Start 03/04/18 at 09:15 Sodium Chloride 1,000 ml @ 0 mls/hr Q0M PRN OTHER WITH DIALYSIS; Start 03/04/18 at 09:15 Mannitol (Mannitol Inj) 12.5 gm UNSCH PRN IV WITH DIALYSIS; Start 03/04/18 at 09 :15 Albumin Human 100 ml @ 60 mls/hr UNSCH PRN IV WITH DIALYSIS; Start 03/04/18 at 09:15 Sodium Chloride (NS Flush) 5 ml UNSCH PRN IV FLUSH WITH DIALYSIS Last administered on 03/06/18at 01:24; Start 03/04/18 at 09:15 Heparin Sodium (Porcine) (Heparin Inj) UNSCH PRN .XX WITH DIALYSIS Last administered on 03/08/18at 09:08; Start 03/04/18 at 09:15 Gentamicin Sulfate (Gentamicin Inj) 20 mg UNSCH PRN OTHER WITH DIALYSIS Last administered on 03/08/18at 09:08; Start 03/04/18 at 09:15 Ondansetron HCl (Zofran Inj) 4 mg UNSCH PRN IV PUSH WITH DIALYSIS; Start at 09:15 Acetaminophen (Tylenol) 650 mg UNSCH PRN PO for headach, pain, temp > 101F; Start 03/04/18 at 09:15 Diphenhydramine HCl (Benadryl) 25 mg UNSCH PRN PO for hives/itching/anaphylaxis ; Start 03/04/18 at 09:15 Nitroglycerin (Nitrostat Sl) 0.4 mg UNSCH PRN SL CHEST PAIN; Start 03/04/18 at 09:15 Clonidine (Catapres) 0.1 mg UNSCH PRN PO SBP>160, DBP>90 Last administered on at 02:13; Start 03/04/18 at 09:15 Epoetin Low (Epogen Inj) 6,000 units UNSCH PRN IV PUSH WITH DIALYSIS; Start at 09:15; Stop 03/06/18 at 18:18; Status DC Gelatin (Gelfoam 12 Mm/7 Mm Top) 1 foam UNSCH PRN TOP SEE LABEL COMMENTS; Start 03/04/18 at 09:15 Morphine Sulfate (Morphine Inj) 2 mg STK-MED ONCE .ROUTE ; Start 03/04/18 at 09: 30; Stop 03/04/18 at 09:31; Status DC Lorazepam (Ativan Inj) 2 mg STK-MED ONCE .ROUTE ; Start 03/04/18 at 09:30; Stop 03/04/18 at 09:31; Status DC Morphine Sulfate (Morphine Inj) 2 mg NOW ONCE IV PUSH Last administered on 03/04at 10:16; Start 03/04/18 at 09:45; Stop 03/04/18 at 09:46; Status DC Lorazepam (Ativan Inj) 1 mg NOW ONCE IV PUSH Last administered on 03/04/18at 10: 17; Start 03/04/18 at 09:45; Stop 03/04/18 at 09:46; Status DC Sodium Bicarbonate (Sodium Bicarbonate 8.4% Inj) 50 meq NOW ONCE IV Last administered on 03/04/18at 10:18; Start 03/04/18 at 09:45; Stop 03/04/18 at 09:46; Status DC Chlorothiazide Sodium (Diuril Inj) 500 mg ONCE ONCE IV Last administered on 03/05/18at 17:41; Start 03/05/18 at 16:00; Stop 03/05/18 at 16:01; Status DC Dextrose (D50w (Vial) Inj) 25 ml UNSCH PRN IV PUSH HYPOGLYCEMIA-SEE COMMENTS; Start 03/05/18 at 16:00; Stop 03/06/18 at 11:26; Status DC Insulin Human Regular (NovoLIN R SUPPLEMENTAL SCALE) 1 ACHS AND 3AM SQ Last administered on 03/06/18at 02:43; Start 03/05/18 at 17:00; Stop 03/06/18 at 11:26; Status DC Albumin Human 100 ml @ 60 mls/hr ONCE ONCE IV Last administered on 03/05/18at 17:24; Start 03/05/18 at 16:00; Stop 03/05/18 at 17:39; Status DC Insulin Detemir (Levemir Inj) 15 units Q12HR SQ Last administered on 03/06/18at 08:09; Start 03/05/18 at 21:30; Stop 03/06/18 at 11:26; Status DC Famotidine (Pepcid) 10 mg BID PO Last administered on 03/09/18at 09:58; Start at 09:00 Insulin Human NPH (NovoLIN N INJ) 15 units DAILY@08 SQ Last administered on 03/07at 09:00; Start 03/07/18 at 08:00; Stop 03/08/18 at 08:38; Status DC Insulin Human NPH (NovoLIN N INJ) 5 units DAILY@17 SQ Last administered on at 17:00; Start 03/06/18 at 17:00; Stop 03/08/18 at 08:38; Status DC Dextrose (D50w (Vial) Inj) 50 ml UNSCH PRN IV PUSH HYPOGLYCEMIA-SEE COMMENTS; Start 03/06/18 at 11:30 Glucagon (Glucagon Inj) 1 mg UNSCH PRN OTHER HYPOGLYCEMIA-SEE COMMENTS; Start 03/06/18 at 11:30 Insulin Aspart (NovoLOG SUPPLEMENTAL SCALE) 1 ACHS SLIDING SCALE SQ Last administered on 03/09/18at 13:21; Start 03/06/18 at 12:00 Albuterol Sulfate (Albuterol Neb) 2.5 mg Q2HR NEB PRN NEB dyspnea; Start at 12:00 Carvedilol (Coreg) 6.25 mg Q12HR PO Last administered on 03/06/18at 20:54; Start 03/06/18 at 21:00; Stop 03/07/18 at 07:30; Status DC Aspirin (Aspirin Chew) 81 mg DAILY CHEW Last administered on 03/09/18at 09:55; Start 03/07/18 at 09:00 Potassium Chloride (KCl) 16 meq ONCE ONCE PO Last administered on 03/06/18at 18: 12; Start 03/06/18 at 16:30; Stop 03/06/18 at 16:31; Status DC Bumetanide 100 ml @ 2 mls/hr Q24H IV Last administered on 03/08/18 12:10; Start 03/06/18 at 17:00; Stop 03/08/18 at 15:09; Status DC Epoetin Low (Epogen Inj) 6,000 units WITH DIALYSIS PRN IV PUSH WITH DIALYSIS Last administered on 03/08/18 09:08; Start 03/06/18 at 18:30 Albuterol/ Ipratropium (Duoneb Neb) 1 ampule Q4HR NEB NEB Last administered on 03/07/18at 15:47; Start 03/07/18 at 08:00 Carvedilol (Coreg) 12.5 mg Q12H PO Last administered on 03/09/18 09:56; Start 03/07/18 at 09:00 Doxazosin Mesylate (Cardura) 4 mg DAILY PO Last administered on 03/09/18 09:55 ; Start 03/07/18 at 09:00 Hydralazine HCl (Apresoline) 100 mg Q8HR PO Last administered on 03/09/18at 13: 22; Start 03/07/18 at 14:00 Labetalol HCl (Trandate Inj) 10 mg Q1HR PRN IV PUSH SBP>160, DBP>90, HR>65; Start 03/07/18 at 07:30 Hydralazine HCl (Apresoline Inj) 10 mg Q1HR PRN IV PUSH SBP>160, DBP>90 Last administered on 03/08/18at 06:48; Start 03/07/18 at 07:30 Nitroglycerin (Nitroglycerin 2% Oint) 2 inch Q6HR PRN TOPICAL SBP>160, DBP>90; Start 03/07/18 at 07:30 Clevidipine 50 ml @ 2 mls/hr TITRATE PRN IV Blood Pressure Management; Start at 07:45 Mupirocin (Bactroban Nasal 2% Oint) 1 applic Taper BID EACH NARE Last administered on 03/09/18at 09:00; Start 03/08/18 at 09:00; Stop 03/04/19 at 08:59 Insulin Human NPH (NovoLIN N INJ) 4 units DAILY@17 SQ Last administered on 03/08at 18:26; Start 03/08/18 at 17:00 Insulin Human NPH (NovoLIN N INJ) 8 units DAILY@08 SQ Last administered on 03/09at 08:00; Start 03/09/18 at 08:00 Methylprednisolone Sodium Succinate (SoluMEDROL INJ) 40 mg DAILY IV PUSH Last administered on 03/09/18at 10:05; Start 03/08/18 at 09:00 Furosemide (Lasix Inj) 80 mg BID@,18 IV PUSH Last administered on 03/09/18at 10:04; Start 03/08/18 at 18:00 A/P Assessment and Plan NEURO/PSYCH: Anxiety disorder NOS Diabetic retinopathy Diabetic neuropathy Chronic pain syndrome Acetaminophen 650 mg p.o. every 4 hours as needed fever Hydrocodone/acetaminophen 7.5/325 with 1 tablet every 4 hours as needed pain 3-5 Alprazolam 0.5 mg p.o. every 8 hours as needed anxiety RESP: Acute on chronic hypoxemic respiratory failure secondary to COPD/large left pleural effusion COPD -3 L oxygen dependent Currently on nasal cannula at 2 L to maintain saturations greater than 92% Incentive spirometry while awake -Status post emergency left thoracentesis with 1.6 L straw-colored fluid removed Chest x-ray 03/07 reveals left greater than right pleural effusion -03/04 Vas-Cath for emergent hemodialysis -Continue albuterol/ipratropium aerosols every 4 hours with albuterol aerosols every 2 hours as needed for dyspnea -Continue budesonide/formoterol 160/4.5 2 puffs twice daily On Tiotropium 18 micrograms inhalation daily per pulmonology -BiPAP when necessary, EzPap acapella ordered -Pulmonary Dr. Blankenship consulted At home on furosemide 40 mg p.o. twice daily Lasix 80 mg IV twice daily CV: Coronary artery disease status post stent 2 Essential hypertension Congestive heart failure likely diastolic Dyslipidemia Paroxysmal atrial fibrillation -Chest x-ray and BNP elevation consistent with CHF exacerbation -Increasing pleural effusions despite thoracentesis and Bumetanide infusion -Vas-Cath placement and hemodialysis 03/04 -Continue home antihypertensives. Including nifedipine extended release 30 mg twice daily, doxazosin 2 mg p.o. daily increased to 4 mg daily, carvedilol 6.25 mg p.o. twice daily decreased to 12.5 mg twice daily and hydralazine 75 mg every 8 hours increased to 100 mg every 8 hours Continue prasugrel 10 mg p.o. daily and aspirin 81 mg p.o. daily Continue atorvastatin 40 mg p.o. daily 2-D echo revealed EF 55% in Dec 2017. On methylprednisolone succinate 40 mg IV every day GI: Hiatal hernia Hypoalbuminemia -advance diet to renal diet. -Famotidine for GI prophylaxis Docusate sodium/senna 1 tablet twice daily for bowel regimen Renal/: Acute kidney injury -Discussed with Dr. Toro, Place Vas-Cath 03/04 for intermittent hemodialysis -Monitor renal function closely. Lim catheter. Off Bumex drip Has had intermittent hemodialysis Accurate I's and O nephrology following. Creatinine currently 2.09 ID: -F/U sputum culture, empiric cefepime 1 g IV every 12 hours Pleural fluid cultures 03/03 no growth to date HEME: -Monitor CBC, CMP, coags On iron sulfate 325 mg p.o. twice daily ENDO: Diabetes mellitus Currently Novulin N 8 units in morning 4 units at night Continue with sliding scale insulin/moderate regimen of NovoLog PROPH: -Bilateral lower extremity SCDs. Heparin 5000 units subcutaneous every 12. Famotidine for GI prophylaxis Meek Handley DO Mar 09, 2018 15:00
--- NOTE | 2018-03-09 16:34 | HHI.NPPN ---
Subjective History of Present Illness Patient is a 67 year old female with past medical history of Diabetes mellitus, hypertension, arthritis, hyperlipidemia, ischemic heart disease, diastolic CHF, and chronic kidney disease stage IV. Patient presented to ED with worsening shortness of breath since Wednesday and increased in bilateral lower extremity edema. She complains of weakness, fatigue, nausea, headache, dizziness, anxiety , and pain in lower extremity. Nephrology was consulted for chronic kidney disease with acute worsening and fluid overload. Patients creatine is found to be 3.06 with a GFR of 15 ml/min. Potassium level of 5.5. Patient baseline creatinine is has been running at 2.1 to 2.5 in 11/14. This is a known patient of Dr. Toro Additional Remarks Patient is resting comfortably. Reported that blood pressure was low today. (Jessica Clemons) Review of Systems Respiratory Respiratory Remarks denies SOB (Jessica Clemons) Cardiovascular Cardiac Remarks Denies CP (Jessica Clemons) Gastrointestinal GI Remarks Denies abdominal pain (Jessica Clemons) Objective Data Data Vital Signs Date Time Temp Pulse Resp B/P (MAP) Pulse Ox O2 Delivery O2 Flow Rate FiO2 03/09/18 12:00 98.0 84 18 116/63 (80) 95 03/09/18 07:30 98.6 84 18 151/71 (97) 97 03/09/18 06:00 68 03/09/18 05:00 68 03/09/18 04:00 98.9 69 18 164/71 (102) 96 03/09/18 04:00 68 03/09/18 03:00 66 03/09/18 02:00 84 03/09/18 01:45 98.7 85 18 170/81 (110) 96 03/09/18 01:45 85 03/09/18 00:00 98.0 83 18 167/72 (103) 96 03/08/18 20:55 94 Nasal Cannula 3.00 03/08/18 20:00 98.3 85 19 124/59 (80) 92 03/08/18 18:00 85 03/08/18 16:30 83 11 159/74 (102) 94 (Jessica Clemons) -: 03/09/18 0515 03/09/18 0515 Tubes & Lines: Vas-Cath Tubes & Lines Comment right chest wall (Jessica Clemons) Physical Exam General Appearance: No Acute Distress, Comfortable (Jessica Clemons) Eyes Eye Exam: Pupils Equal (Jessica Clemons) Pulmonary Resp Exam: Breath Sounds Equal, No Distress, Decreased Bases (Jessica Clemons) Cardiology CV Exam: Regular (Jessica Clemons) Gastrointestinal/Abdomen GI Exam: Soft, Non-Tender, Bowel Sounds Present (Jessica Clemons) Genitourinary Exam: Flank Non-Tender (Jessica Clemons) Integumentary Skin Exam: Clear, Warm, Dry (Jessica Clemons) Extremeties Extremities Exam: Trace Edema (Jessica Clemons) Neurologic Neuro Exam: Alert, Awake (Jessica Clemons) Psychiatric Psych Exam: Appropriate Responses (Jessica Clemons) Assessment/Plan Problem List: (1) Chronic kidney disease (CKD) stage G4/A1, severely decreased glomerular filtration rate (GFR) between 15-29 mL/min/1.73 square meter and albuminuria creatinine ratio less than 30 mg/g ICD Codes: N18.4 - Chronic kidney disease, stage 4 (severe) Plan: Acute kidney injury from possible pre renal vs ATN Patient with history of Chronic kidney disease related to hypertension or diabetic renal disease. Patients baseline creatinine at 2.1-2.5 in October 2017 HD started on 03/04/19 Plan Reported that blood pressure was low will decrease lasix. Avoid nephrotoxins. 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 HD as needed will review labs in AM (2) Diastolic CHF, acute ICD Codes: I50.31 - Acute diastolic (congestive) heart failure Plan: thoracentesis 1.4 liters removed. (3) Anemia ICD Codes: D64.9 - Anemia, unspecified Plan: Improved after PRBC Epogen with dialysis (Jessica Clemons) Problem List: (1) Chronic kidney disease (CKD) stage G4/A1, severely decreased glomerular filtration rate (GFR) between 15-29 mL/min/1.73 square meter and albuminuria creatinine ratio less than 30 mg/g ICD Codes: N18.4 - Chronic kidney disease, stage 4 (severe) Plan: Acute kidney injury from possible pre renal vs ATN Patient with history of Chronic kidney disease related to hypertension or diabetic renal disease. Patients baseline creatinine at 2.1-2.5 in October 2017 HD started on 03/04/19 Plan Reported that blood pressure was low will decrease lasix. Avoid nephrotoxins. Renal dose antibiotics Hemodialysis yesterday UF of 2 liters May need chcf HD however creatinine has been improving at 2.05 Follow the urine out out and BMP. HD as needed will review labs in AM. Patient seen and examined, agree with above. Follow labs in AM and decide about HD. (2) Diastolic CHF, acute ICD Codes: I50.31 - Acute diastolic (congestive) heart failure Plan: thoracentesis 1.4 liters removed. (3) Anemia ICD Codes: D64.9 - Anemia, unspecified Plan: Improved after PRBC Epogen with dialysis (Flavio Toro MD) Jessica Clemons Mar 09, 2018 16:34 Flavio Toro MD Mar 09, 2018 18:45
[2018-03-09 17:20] LABS: HEMOGLOBIN A1C 7.6 % (4.3-6.0)
[2018-03-09] MEDS: FUROSEMIDE 40 MG/4 ML VIAL IV PUSH SCH (17:43)
--- NOTE | 2018-03-09 20:27 | HHI.PR ---
Subjective Remarks 67 YOWF with COPD,CAD,Pl eff No Fever, cough or sp Making urine Weaned to 4LNC Feels much better Objective Vital Signs Vital Signs Date Time Temp Pulse Resp B/P (MAP) Pulse Ox O2 Delivery O2 Flow Rate FiO2 03/09/18 20:05 97 Nasal Cannula 3.00 03/09/18 17:21 98.0 60 18 139/68 (91) 96 03/09/18 15:00 58 03/09/18 12:00 98.0 84 18 116/63 (80) 95 03/09/18 11:00 84 03/09/18 07:30 98.6 84 18 151/71 (97) 97 03/09/18 07:00 68 03/09/18 06:00 68 03/09/18 05:00 68 03/09/18 04:00 98.9 69 18 164/71 (102) 96 03/09/18 04:00 68 03/09/18 03:00 66 03/09/18 02:00 84 03/09/18 01:45 98.7 85 18 170/81 (110) 96 03/09/18 01:45 85 03/09/18 00:00 98.0 83 18 167/72 (103) 96 03/08/18 20:55 94 Nasal Cannula 3.00 I/O 03/08/18 03/08/18 03/08/18 03/09/18 03/09/18 03/09/18 07:00 15:00 23:00 07:00 15:00 23:00 Intake Total 351 ml 606 ml 340 ml 580 ml Output Total 1100 ml 2000 ml 1250 ml 900 ml 850 ml Balance -749 ml -2000 ml -644 ml -560 ml -270 ml Intake Oral 240 ml 600 ml 240 ml 480 ml IV Total 111 ml 6 ml 100 ml 100 ml Output Urine Total 1100 ml 1250 ml 900 ml 850 ml Hemodialysis 2000 ml # Bowel Movements 0 1 0 Result Diagram: 03/09/1851403/09/18 05 Objective Remarks GENERAL: MBMN WF mild sob SKIN: Warm and dry. HEAD: Normocephalic. EYES: No scleral icterus. No injection or drainage. NECK: Supple, trachea midline. No JVD or lymphadenopathy. CARDIOVASCULAR: Regular rate and rhythm without murmurs, gallops, or rubs. RESPIRATORY: Breath sounds equal bilaterally. No accessory muscle use. GASTROINTESTINAL: Abdomen soft, non-tender, nondistended. MUSCULOSKELETAL: No cyanosis, or edema. BACK: Nontender without obvious deformity. No CVA tenderness. A/P Assessment and Plan IMPRESSION: 1. Congestive heart failure. 2. Respiratory failure with hypoxia. 3. Chronic obstructive pulmonary disease. 4. Pleural effusion. 5. Coronary artery disease, status post recent stent placement. 6. History of Clostridium difficile colitis. 7. Chronic kidney disease. PLAN: Supplement 02 with 4LNC and wean 02 Aerosol nebs DC Solumedrol PO Steroids Cont Abx Aaron Blankenship MD Mar 09, 2018 20:27
[2018-03-09] MEDS: ATORVASTATIN 40 MG TAB PO SCH (21:00)
[2018-03-10] VITALS (15 sets, daily range): BP systolic 147–178; BP diastolic 59–82; PULSE 58–82; RESP 16–19; TEMP 97.9–98.9; O2SAT 93–97
[2018-03-10] MEDS: RESP: ALBUTEROL 2.5 MG/IPRATROPIUM 0.5 MG NEB (SCH) NEB ×5 (00:47→16:36)
[2018-03-10] MEDS: CEFEPIME INJ 1,000 MG in SODIUM CHLORIDE 0.9% INJ 100 ML IV SCH ×2 (05:02→15:59)
[2018-03-10] MEDS: hydrALAZINE HCL 100 MG TAB PO SCH ×3 (05:35→23:10)
[2018-03-10] MEDS: ISOSORBIDE MONONITRATE 60 MG CR TAB (IMDUR) PO SCH (07:00)
[2018-03-10 07:38] LABS: AUTOMATED NEUTROPHIL # 8.2 TH/MM3 (1.8-7.7); BASOPHIL % 0.2 % (0.0-2.0); EOSINOPHIL % 0.5 % (0.0-4.0); HEMATOCRIT 30.5 % (35.0-46.0); HEMOGLOBIN 10.3 GM/DL (11.6-15.3); LYMPH % 6.9 % (9.0-44.0); LYMPHOCYTE # 0.7 TH/MM3 (1.0-4.8); MEAN CELL VOLUME 89.3 FL (80.0-100.0); MEAN CORPUSCULAR HEMOGLOBIN 30.2 PG (27.0-34.0); MEAN CORPUSCULAR HGB CONC 33.9 % (32.0-36.0); MEAN PLATELET VOLUME 8.5 FL (7.0-11.0); MONO % 6.3 % (0.0-8.0); MONOCYTE # 0.6 TH/MM3 (0-0.9); NEUT % 86.1 % (16.0-70.0); PLATELET COUNT 223 TH/MM3 (150-450); RED BLOOD COUNT 3.42 MIL/MM3 (4.00-5.30); WHITE BLOOD COUNT 9.5 TH/MM3 (4.0-11.0)
[2018-03-10 07:58] LABS: ALBUMIN 2.2 GM/DL (3.4-5.0); AST (GOT) 11 U/L (15-37); BICARBONATE 27.7 MEQ/L (21.0-32.0); BLOOD UREA NITROGEN 56 MG/DL (7-18); CALCIUM 8.9 MG/DL (8.5-10.1); CHLORIDE 100 MEQ/L (98-107); CREATININE 2.38 MG/DL (0.50-1.00); GLOMERULAR FILTRATION RATE 20 ML/MIN (>89); GLUCOSE,RANDOM 235 MG/DL (74-106); MAGNESIUM 1.9 MG/DL (1.5-2.5); SODIUM (NA) 137 MEQ/L (136-145)
[2018-03-10 07:59] LABS: ALT (GPT) 14 U/L (10-53); PHOSPHORUS 3.9 MG/DL (2.5-4.9)
[2018-03-10] MEDS: INSULIN HUMAN NPH 1,000 UNITS/10 ML VIAL SQ SCH ×2 (08:00→18:03)
[2018-03-10] MEDS: INSULIN ASPART SUPPLEMENTAL SCALE SQ SCH ×4 (08:00→21:00)
[2018-03-10 08:08] LABS: ALKALINE PHOSPHATASE 106 U/L (45-117); TOTAL BILIRUBIN ADULT 0.3 MG/DL (0.2-1.0); TOTAL PROTEIN 5.8 GM/DL (6.4-8.2)
[2018-03-10] MEDS: SODIUM CHLORIDE 0.9% FLUSH 10 ML FLUSH IV FLUSH SCH ×2 (09:00→23:09)
[2018-03-10] MEDS: ASPIRIN 81 MG CHEW TAB CHEW SCH (09:00)
[2018-03-10] MEDS: DOCUSATE SODIUM 50 MG/SENNA 8.6 MG TAB PO SCH ×2 (09:00→21:00)
[2018-03-10] MEDS: PRASUGREL 10 MG TAB PO SCH (09:00)
[2018-03-10] MEDS: FERROUS SULFATE 325 MG (65 MG ELEMENTAL IRON) TAB PO SCH ×2 (09:00→23:10)
[2018-03-10] MEDS: VANCOMYCIN 500 MG VIAL (FOR ORAL USE ONLY) PO SCH ×4 (09:00→23:09)
[2018-03-10] MEDS: HEPARIN SODIUM - SQ 10,000 UNITS/ML VIAL SQ SCH ×2 (09:00→23:09)
[2018-03-10] MEDS: FUROSEMIDE 40 MG/4 ML VIAL IV PUSH SCH ×2 (09:00→18:02)
[2018-03-10] MEDS: predniSONE 10 MG TAB PO SCH ×3 (09:00→15:59)
--- NOTE | 2018-03-10 10:14 | HHI.NPPN ---
Subjective History of Present Illness Patient is a 67 year old female with past medical history of Diabetes mellitus, hypertension, arthritis, hyperlipidemia, ischemic heart disease, diastolic CHF, and chronic kidney disease stage IV. Patient presented to ED with worsening shortness of breath since Wednesday and increased in bilateral lower extremity edema. She complains of weakness, fatigue, nausea, headache, dizziness, anxiety , and pain in lower extremity. Nephrology was consulted for chronic kidney disease with acute worsening and fluid overload. Patients creatine is found to be 3.06 with a GFR of 15 ml/min. Potassium level of 5.5. Patient baseline creatinine is has been running at 2.1 to 2.5 in 11/14. This is a known patient of Dr. Toro Additional Remarks Patient seen during dialysis tolerating well. (Jessica Clemons) Review of Systems Respiratory Respiratory Remarks denies SOB (Jessica Clemons) Cardiovascular Cardiac Remarks Denies CP (Jessica Clemons) Gastrointestinal GI Remarks Denies abdominal pain (Jessica Clemons) Objective Data Data Vital Signs Date Time Temp Pulse Resp B/P (MAP) Pulse Ox O2 Delivery O2 Flow Rate FiO2 03/10/18 06:00 61 03/10/18 05:00 62 03/10/18 04:00 61 03/10/18 04:00 98.0 64 16 157/59 (91) 95 03/10/18 03:00 60 03/10/18 02:00 58 03/10/18 01:31 59 03/10/18 00:00 97.9 59 18 173/75 (107) 97 03/10/18 00:00 58 03/09/18 23:00 60 03/09/18 22:00 62 03/09/18 21:00 60 03/09/18 20:55 97.5 62 18 143/67 (92) 97 03/09/18 20:05 97 Nasal Cannula 3.00 03/09/18 20:00 60 03/09/18 19:00 62 03/09/18 17:21 98.0 60 18 139/68 (91) 96 03/09/18 15:00 58 03/09/18 12:00 98.0 84 18 116/63 (80) 95 03/09/18 11:00 84 (Jessica Clemons) -: 03/10/18 0529 03/10/18 0529 Tubes & Lines: Vas-Cath Tubes & Lines Comment right chest wall (Jessica Clemons) Physical Exam General Appearance: No Acute Distress, Comfortable (Jessica Clemons) Eyes Eye Exam: Pupils Equal (Jessica Clemons) Pulmonary Resp Exam: Breath Sounds Equal, No Distress, Decreased Bases (Jessica Clemons) Cardiology CV Exam: Regular (Jessica Clemons) Gastrointestinal/Abdomen GI Exam: Soft, Non-Tender, Bowel Sounds Present (Jessica Clemons) Genitourinary Exam: Flank Non-Tender (Jessica Clemons) Integumentary Skin Exam: Clear, Warm, Dry (Jessica Clemons) Extremeties Extremities Exam: Trace Edema (Jessica Clemons) Neurologic Neuro Exam: Alert, Awake (Jessica Clemons) Psychiatric Psych Exam: Appropriate Responses (Jessica Clemons) Assessment/Plan Problem List: (1) Chronic kidney disease (CKD) stage G4/A1, severely decreased glomerular filtration rate (GFR) between 15-29 mL/min/1.73 square meter and albuminuria creatinine ratio less than 30 mg/g ICD Codes: N18.4 - Chronic kidney disease, stage 4 (severe) Plan: Acute kidney injury from possible pre renal vs ATN Patient with history of Chronic kidney disease related to hypertension or diabetic renal disease. Patients baseline creatinine at 2.1-2.5 in October 2017 HD started on 03/04/19 Plan Continue lasix BID Avoid nephrotoxins. Renal dose antibiotics May need chcf HD however creatinine has been improving at 2.38 Seen during HD tolerating well Follow the urine output and BMP and assess for further need for dialysis (2) Diastolic CHF, acute ICD Codes: I50.31 - Acute diastolic (congestive) heart failure Plan: thoracentesis 1.4 liters removed. (3) Anemia ICD Codes: D64.9 - Anemia, unspecified Plan: Improved after PRBC Epogen with dialysis (Jessica Clemons) Problem List: (1) Chronic kidney disease (CKD) stage G4/A1, severely decreased glomerular filtration rate (GFR) between 15-29 mL/min/1.73 square meter and albuminuria creatinine ratio less than 30 mg/g ICD Codes: N18.4 - Chronic kidney disease, stage 4 (severe) Plan: Acute kidney injury from possible pre renal vs ATN Patient with history of Chronic kidney disease related to hypertension or diabetic renal disease. Patients baseline creatinine at 2.1-2.5 in October 2017 HD started on 03/04/19 Plan Continue lasix BID Avoid nephrotoxins. Renal dose antibiotics May need chcf HD however creatinine has been improving at 2.38 Seen during HD tolerating well Follow the urine output and BMP and assess for further need for dialysis. Patient seen and examined, agree with above. HD again done mainly fluid removal. (2) Diastolic CHF, acute ICD Codes: I50.31 - Acute diastolic (congestive) heart failure Plan: thoracentesis 1.4 liters removed. (3) Anemia ICD Codes: D64.9 - Anemia, unspecified Plan: Improved after PRBC Epogen with dialysis (Flavio Toro MD) Jessica Clemons Mar 10, 2018 10:14 Flavio Toro MD Mar 10, 2018 18:10
[2018-03-10] MEDS: NIFEdipine 30 MG SUSTAINED RELEASE TAB PO SCH ×2 (15:59→23:10)
[2018-03-10] MEDS: FAMOTIDINE 20 MG TAB PO SCH ×2 (15:59→23:09)
[2018-03-10] MEDS: DOXAZOSIN MESYLATE 4 MG TAB PO SCH (15:59)
[2018-03-10] MEDS: CARVEDILOL 12.5 MG TAB PO SCH ×2 (16:00→23:10)
[2018-03-10] MEDS: TIOTROPIUM BROMIDE 18 MCG INH INH SCH (16:02)
[2018-03-10 16:16] LABS: HEMOGLOBIN A1C 7.6 % (4.3-6.0)
--- NOTE | 2018-03-10 16:51 | HHI.PR ---
Subjective Remarks having loose stools since yesterday poor po intake but no nausea or vomiting Objective Vitals Vital Signs Date Time Temp Pulse Resp B/P (MAP) Pulse Ox O2 Delivery O2 Flow Rate FiO2 03/10/18 13:25 98.5 73 17 178/72 (107) 93 03/10/18 07:45 98.9 82 16 147/82 (103) 96 03/10/18 07:00 64 03/10/18 06:00 61 03/10/18 05:00 62 03/10/18 04:00 61 03/10/18 04:00 98.0 64 16 157/59 (91) 95 03/10/18 03:00 60 03/10/18 02:00 58 03/10/18 01:31 59 03/10/18 00:00 97.9 59 18 173/75 (107) 97 03/10/18 00:00 58 03/09/18 23:00 60 03/09/18 22:00 62 03/09/18 21:00 60 03/09/18 20:55 97.5 62 18 143/67 (92) 97 03/09/18 20:05 97 Nasal Cannula 3.00 03/09/18 20:00 60 03/09/18 19:00 62 03/09/18 17:21 98.0 60 18 139/68 (91) 96 I/O 03/09/18 03/09/18 03/09/18 03/10/18 03/10/18 03/10/18 07:00 15:00 23:00 07:00 15:00 23:00 Intake Total 340 ml 580 ml 480 ml Output Total 900 ml 850 ml 700 ml 3000 ml Balance -560 ml -270 ml -220 ml -3000 ml Intake Oral 240 ml 480 ml 480 ml IV Total 100 ml 100 ml Output Urine Total 900 ml 850 ml 700 ml Stool Total 3000 ml # Bowel Movements 0 Result Diagram: 03/10/1852803/10/18528 Imaging Last Impressions Chest X-Ray 03/09/18 06 Signed Impressions: Service Date/Time: Friday, March 09, 2018 04:13 - CONCLUSION: Improving airspace disease. Bibasilar densities and pleural effusions. Je Fletcher MD Objective Remarks awake and alert, no acute distress, oriented x 3 anicteric no nuchal rigidity right side of the neck- VAS cath in place lungs- decreased vocal fremiti left base, no wheezes regular rhythm abdomen sof,t good bowel sounds, nontender extremtiies - trace pretibial edema neuro- non focal - moves all extremities spontaneously Procedures RIGHT IJ VASCATH 4- DR CHOUDHARY 03/03 - Left-sided thoracentesis Urinary Catheter: Yes Assessment to: Continue Lim insert reason: Measure Accurate Output Date of Insertion: Mar 03, 2018 A/P Assessment and Plan NEURO/PSYCH: Anxiety disorder NOS Diabetic retinopathy Diabetic neuropathy Chronic pain syndrome Acetaminophen 650 mg p.o. every 4 hours as needed fever Hydrocodone/acetaminophen 7.5/325 with 1 tablet every 4 hours as needed pain 3-5 Alprazolam 0.5 mg p.o. every 8 hours as needed anxiety Neuro stable RESP: Acute on chronic hypoxemic respiratory failure secondary to COPD/large left pleural effusion COPD -3 L oxygen dependent Currently on nasal cannula at 2 L to maintain saturations greater than 92% Incentive spirometry while awake -Status post emergency left thoracentesis with 1.6 L straw-colored fluid removed Chest x-ray 03/07 reveals left greater than right pleural effusion -03/04 Vas-Cath for emergent hemodialysis -Continue albuterol/ipratropium aerosols every 4 hours with albuterol aerosols every 2 hours as needed for dyspnea -Continue budesonide/formoterol 160/4.5 2 puffs twice daily On Tiotropium 18 micrograms inhalation daily per pulmonology -BiPAP when necessary, EzPap acapella ordered - Prednisone tapered to 10 mg po tid today 03/10 - Lasix 80 mg IV twice daily (at home on 40 mg bid) - Dr. Blankenship ff - repeat CXR improved- likely more picture of edema than infectious - DC Cefepime after today's dose (received total 7 days) CV: Coronary artery disease status post stent 2 Essential hypertension Congestive heart failure likely diastolic Dyslipidemia Paroxysmal atrial fibrillation -Chest x-ray and BNP elevation consistent with CHF exacerbation -Increasing pleural effusions despite thoracentesis and Bumetanide infusion -Vas-Cath placement and hemodialysis 03/04 Nifedipine extended release 30 mg twice daily, doxazosin 4 mg daily, carvedilol 12.5 mg twice daily and hydralazine 100 mg every 8 hours Continue prasugrel 10 mg p.o. daily and aspirin 81 mg p.o. daily Continue atorvastatin 40 mg p.o. daily 2-D echo revealed EF 55% in Dec 2017. continue above meds and adjust dosages GI: Hiatal hernia Hypoalbuminemia -advance diet to renal diet. -Famotidine for GI prophylaxis Docusate sodium/senna 1 tablet twice daily for bowel regimen Renal/: Acute kidney injury - creatinine stabilizing - resolving- good urine output - Vas-Cath placed 03/04 for intermittent hemodialysis -Monitor renal function clos per nephrology . Lim catheter. - on Lasix 80 mg q 12 IV Accurate I's and O nephrology following. C diff colitis - history of + C diff - last 12/21- treated with po Vancomycin - start Vancomycin 125 mg po qid today 03/10 - ff stool output - will DC IV Cefepime after today HEME: -Monitor CBC, CMP, coags On iron sulfate 325 mg p.o. twice daily ENDO: Diabetes mellitus Currently Novulin N 8 units in morning 4 units at night Continue with sliding scale insulin/moderate regimen of NovoLog adjust as po intake improves PROPH: -Bilateral lower extremity SCDs. Heparin 5000 units subcutaneous every 12. Famotidine for GI prophylaxis DC planning- SNf vs home with home PT Luis Gunn MD Mar 10, 2018 16:51
--- NOTE | 2018-03-10 19:51 | HHI.PR ---
Subjective Remarks 67 YOWF with COPD,CAD,Pl eff No Fever, cough or sp Making urine Weaned to 4LNC Had HD, 3 lit fluid removed Feels tired Objective Vital Signs Vital Signs Date Time Temp Pulse Resp B/P (MAP) Pulse Ox O2 Delivery O2 Flow Rate FiO2 03/10/18 16:00 Nasal Cannula 2.00 03/10/18 16:00 98.2 68 19 169/80 (109) 93 03/10/18 13:25 98.5 73 17 178/72 (107) 93 03/10/18 07:45 98.9 82 16 147/82 (103) 96 03/10/18 07:00 64 03/10/18 06:00 61 03/10/18 05:00 62 03/10/18 04:00 61 03/10/18 04:00 98.0 64 16 157/59 (91) 95 03/10/18 03:00 60 03/10/18 02:00 58 03/10/18 01:31 59 03/10/18 00:00 97.9 59 18 173/75 (107) 97 03/10/18 00:00 58 03/09/18 23:00 60 03/09/18 22:00 62 03/09/18 21:00 60 03/09/18 20:55 97.5 62 18 143/67 (92) 97 03/09/18 20:05 97 Nasal Cannula 3.00 03/09/18 20:00 60 I/O 03/09/18 03/09/18 03/09/18 03/10/18 03/10/18 03/10/18 07:00 15:00 23:00 07:00 15:00 23:00 Intake Total 340 ml 580 ml 480 ml Output Total 900 ml 850 ml 700 ml 3000 ml Balance -560 ml -270 ml -220 ml -3000 ml Intake Oral 240 ml 480 ml 480 ml IV Total 100 ml 100 ml Output Urine Total 900 ml 850 ml 700 ml Stool Total 3000 ml # Bowel Movements 0 Result Diagram: 03/10/1852803/10/18528 Objective Remarks GENERAL: MBMN WF mild sob SKIN: Warm and dry. HEAD: Normocephalic. EYES: No scleral icterus. No injection or drainage. NECK: Supple, trachea midline. No JVD or lymphadenopathy. CARDIOVASCULAR: Regular rate and rhythm without murmurs, gallops, or rubs. RESPIRATORY: Breath sounds equal bilaterally. No accessory muscle use. GASTROINTESTINAL: Abdomen soft, non-tender, nondistended. MUSCULOSKELETAL: No cyanosis, or edema. BACK: Nontender without obvious deformity. No CVA tenderness. A/P Assessment and Plan IMPRESSION: 1. Congestive heart failure. 2. Respiratory failure with hypoxia. 3. Chronic obstructive pulmonary disease. 4. Pleural effusion. 5. Coronary artery disease, status post recent stent placement. 6. History of Clostridium difficile colitis. 7. Chronic kidney disease. PLAN: Supplement 02 with 4LNC and wean 02 Aerosol nebs PO Steroids Cont Abx Aaron Blankenship MD Mar 10, 2018 19:51
[2018-03-10] MEDS: BUDESONIDE-FORMOTEROL 160/4.5 MCG INHALER INH SCH (23:08)
[2018-03-10] MEDS: MUPIROCIN 2% OINT 1 APPLIC/GM SYR EACH NARE SCH (23:08)
[2018-03-10] MEDS: ATORVASTATIN 40 MG TAB PO SCH (23:10)
[2018-03-10] MEDS: ONDANSETRON HCL 4 MG/2 ML VIAL IVP PRN (23:31)
[2018-03-11] VITALS (9 sets, daily range): BP systolic 132–178; BP diastolic 62–78; PULSE 57–80; RESP 17–20; TEMP 97.9–98.5; O2SAT 92–96
[2018-03-11 05:43] LABS: HEMATOCRIT 30.5 % (35.0-46.0); HEMOGLOBIN 10.4 GM/DL (11.6-15.3); MEAN CELL VOLUME 89.7 FL (80.0-100.0); MEAN CORPUSCULAR HEMOGLOBIN 30.5 PG (27.0-34.0); MEAN PLATELET VOLUME 8.4 FL (7.0-11.0); PLATELET COUNT 202 TH/MM3 (150-450); RED CELL DISTRIBUTION WIDTH 16.4 % (11.6-17.2); WHITE BLOOD COUNT 6.5 TH/MM3 (4.0-11.0)
[2018-03-11] MEDS: hydrALAZINE HCL 100 MG TAB PO SCH ×3 (05:45→22:03)
[2018-03-11] MEDS: ISOSORBIDE MONONITRATE 60 MG CR TAB (IMDUR) PO SCH (05:45)
[2018-03-11 06:04] LABS: BICARBONATE 32.6 MEQ/L (21.0-32.0); CALCIUM 8.7 MG/DL (8.5-10.1); CREATININE 1.75 MG/DL (0.50-1.00)
[2018-03-11] MEDS: INSULIN ASPART SUPPLEMENTAL SCALE SQ SCH ×4 (08:00→22:13)
[2018-03-11] MEDS: DOCUSATE SODIUM 50 MG/SENNA 8.6 MG TAB PO SCH ×2 (09:00→21:00)
[2018-03-11] MEDS: NIFEdipine 30 MG SUSTAINED RELEASE TAB PO SCH ×2 (09:05→22:00)
[2018-03-11] MEDS: DOXAZOSIN MESYLATE 4 MG TAB PO SCH (09:05)
[2018-03-11] MEDS: predniSONE 10 MG TAB PO SCH ×3 (09:05→18:18)
[2018-03-11] MEDS: HEPARIN SODIUM - SQ 10,000 UNITS/ML VIAL SQ SCH ×2 (09:05→22:02)
[2018-03-11] MEDS: ASPIRIN 81 MG CHEW TAB CHEW SCH (09:05)
[2018-03-11] MEDS: CARVEDILOL 12.5 MG TAB PO SCH ×2 (09:05→22:00)
[2018-03-11] MEDS: SODIUM CHLORIDE 0.9% FLUSH 10 ML FLUSH IV FLUSH SCH ×2 (09:06→22:02)
[2018-03-11] MEDS: MUPIROCIN 2% OINT 1 APPLIC/GM SYR EACH NARE SCH ×2 (09:06→22:00)
[2018-03-11] MEDS: INSULIN HUMAN NPH 1,000 UNITS/10 ML VIAL SQ SCH ×2 (09:06→17:00)
[2018-03-11] MEDS: TIOTROPIUM BROMIDE 18 MCG INH INH SCH (09:07)
[2018-03-11] MEDS: BUDESONIDE-FORMOTEROL 160/4.5 MCG INHALER INH SCH ×2 (09:07→21:00)
[2018-03-11] MEDS: FAMOTIDINE 20 MG TAB PO SCH ×2 (09:10→22:01)
[2018-03-11] MEDS: VANCOMYCIN 500 MG VIAL (FOR ORAL USE ONLY) PO SCH ×4 (09:11→22:03)
--- NOTE | 2018-03-11 09:23 | HHI.NPPN ---
Subjective History of Present Illness Patient is a 67 year old female with past medical history of Diabetes mellitus, hypertension, arthritis, hyperlipidemia, ischemic heart disease, diastolic CHF, and chronic kidney disease stage IV. Patient presented to ED with worsening shortness of breath since Wednesday and increased in bilateral lower extremity edema. She complains of weakness, fatigue, nausea, headache, dizziness, anxiety , and pain in lower extremity. Nephrology was consulted for chronic kidney disease with acute worsening and fluid overload. Patients creatine is found to be 3.06 with a GFR of 15 ml/min. Potassium level of 5.5. Patient baseline creatinine is has been running at 2.1 to 2.5 in 11/14. This is a known patient of Dr. Toro Additional Remarks Patient eating breakfast this morning. Reported nausea and vomiting yesterday. (Jessica Clemons) Review of Systems Respiratory Respiratory Remarks denies SOB (Jessica Clemons) Cardiovascular Cardiac Remarks Denies CP (Jessica Clemons) Gastrointestinal Gastrointestinal: Nausea & Vomiting, Diarrhea GI Remarks Denies abdominal pain (Jessica Clemons) Objective Data Data Vital Signs Date Time Temp Pulse Resp B/P (MAP) Pulse Ox O2 Delivery O2 Flow Rate FiO2 03/11/18 08:00 98.1 79 20 152/68 (96) 92 03/11/18 04:05 61 03/11/18 04:00 98.0 76 18 178/78 (111) 93 03/11/18 04:00 Nasal Cannula 3.00 03/11/18 00:00 Nasal Cannula 3.00 03/11/18 00:00 98.5 66 17 176/73 (107) 94 03/10/18 23:49 81 03/10/18 21:55 Nasal Cannula 3.00 03/10/18 20:00 98.6 60 17 168/74 (105) 96 03/10/18 20:00 Nasal Cannula 3.00 03/10/18 19:44 62 03/10/18 16:16 76 03/10/18 16:00 Nasal Cannula 2.00 03/10/18 16:00 98.2 68 19 169/80 (109) 93 03/10/18 13:25 98.5 73 17 178/72 (107) 93 (Jessica Clemons) -: 03/11/18 0523 03/11/18 0523 Tubes & Lines: Vas-Cath Tubes & Lines Comment right chest wall (Jessica Clemons) Physical Exam General Appearance: No Acute Distress, Comfortable (Jessica Clemons) Eyes Eye Exam: Pupils Equal (Jessica Clemons) Pulmonary Resp Exam: Breath Sounds Equal, No Distress, Decreased Bases (Jessica Clemons) Cardiology CV Exam: Regular (Jessica Clemons) Gastrointestinal/Abdomen GI Exam: Soft, Non-Tender, Bowel Sounds Present (Jessica Clemons) Genitourinary Exam: Flank Non-Tender (Jessica Clemons) Integumentary Skin Exam: Clear, Warm, Dry (Jessica Clemons) Extremeties Extremities Exam: Trace Edema (Jessica Clemons) Neurologic Neuro Exam: Alert, Awake (Jessica Clemons) Psychiatric Psych Exam: Appropriate Responses (Jessica Clemons) Assessment/Plan Problem List: (1) Chronic kidney disease (CKD) stage G4/A1, severely decreased glomerular filtration rate (GFR) between 15-29 mL/min/1.73 square meter and albuminuria creatinine ratio less than 30 mg/g ICD Codes: N18.4 - Chronic kidney disease, stage 4 (severe) Plan: Acute kidney injury from possible pre renal vs ATN Patient with history of Chronic kidney disease related to hypertension or diabetic renal disease. Patients baseline creatinine at 2.1-2.5 in October 2017 HD started on 03/04/19 Plan Continue lasix BID Avoid nephrotoxins. Renal dose antibiotics On vancomycin PO for C Diff May need detention HD however creatinine has been improving at 1.75 with good UOP Follow the urine output and BMP and assess for further need for dialysis. (2) Diastolic CHF, acute ICD Codes: I50.31 - Acute diastolic (congestive) heart failure Plan: thoracentesis 1.4 liters removed. (3) Anemia ICD Codes: D64.9 - Anemia, unspecified Plan: Improved after PRBC Epogen with dialysis (Gellermann,Jessica [facility]) Problem List: (1) Chronic kidney disease (CKD) stage G4/A1, severely decreased glomerular filtration rate (GFR) between 15-29 mL/min/1.73 square meter and albuminuria creatinine ratio less than 30 mg/g ICD Codes: N18.4 - Chronic kidney disease, stage 4 (severe) Plan: Acute kidney injury from possible pre renal vs ATN Patient with history of Chronic kidney disease related to hypertension or diabetic renal disease. Patients baseline creatinine at 2.1-2.5 in October 2017 HD started on 03/04/19 Plan Continue lasix BID Avoid nephrotoxins. Renal dose antibiotics On vancomycin PO for C Diff May need detention HD however creatinine has been improving at 1.75 with good UOP Follow the urine output and BMP and assess for further need for dialysis. Patient seen and examined, agree with above. HD as needed, told to restrict fluid intake. (2) Diastolic CHF, acute ICD Codes: I50.31 - Acute diastolic (congestive) heart failure Plan: thoracentesis 1.4 liters removed. (3) Anemia ICD Codes: D64.9 - Anemia, unspecified Plan: Improved after PRBC Epogen with dialysis (Flavio Toro MD) Jessica Clemons Mar 11, 2018 09:23 Flavio Toro MD Mar 14, 2018 18:21
[2018-03-11] MEDS: FUROSEMIDE 40 MG/4 ML VIAL IV SCH (11:49)
[2018-03-11] MEDS: FERROUS SULFATE 325 MG (65 MG ELEMENTAL IRON) TAB PO SCH ×2 (11:49→22:01)
--- NOTE | 2018-03-11 11:57 | HHI.PR ---
Subjective Remarks Patient is in bed. She appears tired. No nausea, vomiting, no diarrhea, constipation. Denies chest pain. With some shortness of breath. Objective Vitals Vital Signs Date Time Temp Pulse Resp B/P (MAP) Pulse Ox O2 Delivery O2 Flow Rate FiO2 03/11/18 09:00 Nasal Cannula 3.00 03/11/18 08:05 92 Nasal Cannula 3.00 03/11/18 08:00 98.1 79 20 152/68 (96) 92 03/11/18 04:05 61 03/11/18 04:00 98.0 76 18 178/78 (111) 93 03/11/18 04:00 Nasal Cannula 3.00 03/11/18 00:00 Nasal Cannula 3.00 03/11/18 00:00 98.5 66 17 176/73 (107) 94 03/10/18 23:49 81 03/10/18 21:55 Nasal Cannula 3.00 03/10/18 20:00 98.6 60 17 168/74 (105) 96 03/10/18 20:00 Nasal Cannula 3.00 03/10/18 19:44 62 03/10/18 16:16 76 03/10/18 16:00 Nasal Cannula 2.00 03/10/18 16:00 98.2 68 19 169/80 (109) 93 03/10/18 13:25 98.5 73 17 178/72 (107) 93 I/O 03/10/18 03/10/18 03/10/18 03/11/18 03/11/18 03/11/18 07:00 15:00 23:00 07:00 15:00 23:00 Intake Total 480 ml 420 ml Output Total 700 ml 3000 ml 1150 ml Balance -220 ml -3000 ml -730 ml Intake Oral 480 ml 420 ml Output Urine Total 700 ml 950 ml Stool Total 3000 ml Emesis 200 ml # Bowel Movements 1 Result Diagram: 03/11/1852203/11/18522 Imaging Last Impressions Chest X-Ray 03/09/18 06 Signed Impressions: Service Date/Time: Friday, March 09, 2018 04:13 - CONCLUSION: Improving airspace disease. Bibasilar densities and pleural effusions. Je Fletcher MD Objective Remarks GENERAL: Pleasant 67-year-old female awake and alert, appears tired. CARDIOVASCULAR: Regular rate and rhythm. RESPIRATORY: No accessory muscle use. Decreased breath sounds, decreased vocal fremitus left base, no wheezes GASTROINTESTINAL: Abdomen soft, non-tender, nondistended. Hepatic and splenic margins not palpable. MUSCULOSKELETAL: Extremities without clubbing, cyanosis. Trace pretibial edema. No obvious deformities. NEUROLOGICAL: Awake and alert. No obvious cranial nerve deficits. Motor grossly within normal limits. Five out of 5 muscle strength in the arms and legs. Normal speech. PSYCHIATRIC: Appropriate mood and affect; insight and judgment normal. Procedures RIGHT IJ VASCATH 4- DR CHOUDHARY 03/03 - Left-sided thoracentesis Date of Insertion: Mar 03, 2018 A/P Assessment and Plan NEURO/PSYCH: Anxiety disorder NOS Diabetic retinopathy Diabetic neuropathy Chronic pain syndrome Acetaminophen 650 mg p.o. every 4 hours as needed fever Hydrocodone/acetaminophen 7.5/325 with 1 tablet every 4 hours as needed pain 3-5 Alprazolam 0.5 mg p.o. every 8 hours as needed anxiety Neuro stable RESP: Acute on chronic hypoxemic respiratory failure secondary to COPD/large left pleural effusion COPD -3 L oxygen dependent Currently on nasal cannula at 2 L to maintain saturations greater than 92% Incentive spirometry while awake -Status post emergency left thoracentesis with 1.6 L straw-colored fluid removed Chest x-ray 03/07 reveals left greater than right pleural effusion -03/04 Vas-Cath for emergent hemodialysis -Continue albuterol/ipratropium aerosols every 4 hours with albuterol aerosols every 2 hours as needed for dyspnea -Continue budesonide/formoterol 160/4.5 2 puffs twice daily On Tiotropium 18 micrograms inhalation daily per pulmonology -BiPAP when necessary, EzPap acapella ordered - Prednisone tapered to 10 mg po tid today 03/10 - Lasix 80 mg IV twice daily (at home on 40 mg bid) - Dr. Blankenship ff - repeat CXR improved- likely more picture of edema than infectious - DC Cefepime (received total 7 days) CV: Coronary artery disease status post stent 2 Essential hypertension Congestive heart failure likely diastolic Dyslipidemia Paroxysmal atrial fibrillation -Chest x-ray and BNP elevation consistent with CHF exacerbation -Increasing pleural effusions despite thoracentesis and Bumetanide infusion -Vas-Cath placement and hemodialysis 03/04 Nifedipine extended release 30 mg twice daily, doxazosin 4 mg daily, carvedilol 12.5 mg twice daily and hydralazine 100 mg every 8 hours Continue prasugrel 10 mg p.o. daily and aspirin 81 mg p.o. daily Continue atorvastatin 40 mg p.o. daily 2-D echo revealed EF 55% in Dec 2017. continue above meds and adjust dosages GI: Hiatal hernia Hypoalbuminemia -advance diet to renal diet. -Famotidine for GI prophylaxis Docusate sodium/senna 1 tablet twice daily for bowel regimen Renal/: Acute kidney injury - creatinine stabilizing - resolving- good urine output - Vas-Cath placed 03/04 for intermittent hemodialysis -Monitor renal function clos per nephrology . Lim catheter. - on Lasix 80 mg q 12 IV Accurate I's and O nephrology following. C diff colitis - history of + C diff - last 12/21- treated with po Vancomycin - start Vancomycin 125 mg po qid today 03/10 - ff stool output -DC IV Cefepime HEME: -Monitor CBC, CMP, coags On iron sulfate 325 mg p.o. twice daily ENDO: Diabetes mellitus type 2, uncontrolled with A1c of 7.6 Currently Novulin N 8 units in morning 4 units at night Continue with sliding scale insulin/moderate regimen of NovoLog adjust as po intake improves PROPH: -Bilateral lower extremity SCDs. Heparin 5000 units subcutaneous every 12. Famotidine for GI prophylaxis DC planning- SNf vs home with home PT. patient wants home with home health refusing snf. Will have PT daily until able deemed safe for DC home DC when cleared by nephrology Lay Camacho MD Mar 11, 2018 11:57
[2018-03-11] MEDS ORDERED: HYDR-3516 PO (12:01)
[2018-03-11] MEDS ORDERED: Budeson-Formot 160-4.5 Mcg Inh INH (12:01)
--- NOTE | 2018-03-11 12:01 | HHI.DS ---
Discharge Summary Admission Date Mar 03, 2018 at 04:30 Discharge Date: Mar 15, 2018 Admitting Diagnosis Anasarca, Left pleural effusion, Hypoxic Respiratory failure. (1) Anasarca ICD Code: R60.1 - Generalized edema (2) Diabetes mellitus with peripheral vascular disease ICD Code: E11.51 - Type 2 diabetes mellitus with diabetic peripheral angiopathy without gangrene Status: Chronic (3) Acute kidney insufficiency ICD Code: N28.9 - Disorder of kidney and ureter, unspecified Status: Acute (4) COPD (chronic obstructive pulmonary disease) ICD Code: J44.9 - Chronic obstructive pulmonary disease, unspecified Status: Chronic (5) CAD (coronary artery disease) ICD Code: I25.10 - Atherosclerotic heart disease of marsh[place] coronary artery without angina pectoris Status: Chronic (6) Chronic kidney disease (CKD) stage G4/A1, severely decreased glomerular filtration rate (GFR) between 15-29 mL/min/1.73 square meter and albuminuria creatinine ratio less than 30 mg/g ICD Code: N18.4 - Chronic kidney disease, stage 4 (severe) (7) COPD (chronic obstructive pulmonary disease) ICD Code: J44.9 - Chronic obstructive pulmonary disease, unspecified (8) IDDM (insulin dependent diabetes mellitus) ICD Code: E11.9 - Type 2 diabetes mellitus without complications; 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.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 Status: Chronic (9) Pleural effusion ICD Code: J90 - Pleural effusion, not elsewhere classified (10) HTN (hypertension) ICD Code: I10 - Essential (primary) hypertension Status: Chronic (11) Diarrhea ICD Code: R19.7 - Diarrhea, unspecified Status: Acute (12) Retinopathy due to secondary diabetes ICD Code: E13.319 - Other specified diabetes mellitus with unspecified diabetic retinopathy without macular edema Status: Chronic Procedures RIGHT HILLARY GARCIA 4-6 DR CHOUDHARY 03/03 - Left-sided thoracentesis Brief History - From Admission 67-year-old female with a past medical history significant for CHF (last echo on 01/03/18 with an EF of 55-60%"), chronic kidney disease, diabetes mellitus, COPD, hyperlipidemia and hypertension since the emergency department for evaluation of shortness of breath. The patient reports she has had worsening shortness of breath since Wednesday that has made it very difficult for her to breathe. She also reports an increase in her bilateral lower extremity edema that has worsened since Wednesday. She complains of weakness and fatigue and has a history of anemia requiring blood transfusions and states her last transfusion was in December of this year. Positive headache. No chest pain/ pressure. No nausea/vomiting/diarrhea. No palatal pain. No lateralizing signs /symptoms. CBC/BMP: 03/11/18 0523 03/11/18 0523 Significant Findings Laboratory Tests Test 03/09/18 05:15 03/09/18 22:27 03/10/18 05:29 03/11/18 05:23 Red Blood Count 3.37 MIL/MM3 (4.00-5.30) 3.42 MIL/MM3 (4.00-5.30) 3.40 MIL/MM3 (4.00-5.30) Hemoglobin 10.3 GM/DL (11.6-15.3) 10.3 GM/DL (11.6-15.3) 10.4 GM/DL (11.6-15.3) Hematocrit 30.0 % (35.0-46.0) 30.5 % (35.0-46.0) 30.5 % (35.0-46.0) Neutrophils (%) (Auto) 76.9 % (16.0-70.0) 86.1 % (16.0-70.0) Monocytes (%) (Auto) 8.9 % (0.0-8.0) Lymphocytes # (Auto) 0.8 TH/MM3 (1.0-4.8) 0.7 TH/MM3 (1.0-4.8) Blood Urea Nitrogen 49 MG/DL (7-18) 56 MG/DL (7-18) 33 MG/DL (7-18) Creatinine 2.09 MG/DL (0.50-1.00) 2.38 MG/DL (0.50-1.00) 1.75 MG/DL (0.50-1.00) Random Glucose 315 MG/DL (74-106) 235 MG/DL (74-106) 152 MG/DL (74-106) Total Protein 5.5 GM/DL (6.4-8.2) 5.8 GM/DL (6.4-8.2) Albumin 2.0 GM/DL (3.4-5.0) 2.2 GM/DL (3.4-5.0) Aspartate Amino Transf (AST/SGOT) 11 U/L (15-37) 11 U/L (15-37) Estimat Glomerular Filtration Rate 24 ML/MIN (>89) 20 ML/MIN (>89) 29 ML/MIN (>89) Hemoglobin A1c 7.6 % (4.3-6.0) 7.6 % (4.3-6.0) Stool C. difficile Toxin (PCR) POSITIVE (NEGATIVE) Stl C. difficile Toxin Epiderm 027 PRESUMPTIVE POSITIVE Lymphocytes (%) (Auto) 6.9 % (9.0-44.0) Neutrophils # (Auto) 8.2 TH/MM3 (1.8-7.7) Carbon Dioxide Level 32.6 MEQ/L (21.0-32.0) Imaging Last Impressions Chest X-Ray 03/09/18 0600 Signed Impressions: Service Date/Time: Wednesday, March 09, 2018 04:13 - CONCLUSION: Improving airspace disease. Bibasilar densities and pleural effusions. Je Fletcher MD PE at Discharge awake and alert, no acute distress, oriented x 3 anicteric no nuchal rigidity right side of the neck- VAS cath in place lungs- decreased vocal fremiti left base, no wheezes regular rhythm abdomen sof,t good bowel sounds, nontender extremtiies - trace pretibial edema neuro- non focal - moves all extremities spontaneously Pt update on day of discharge Feels much better. She is cleared by nephrology for discharge. Patient says she is going home and she still refusing intermediate facility. Says she will go to intermediate facility if she cannot do well at home. [id number] signed. Patient denies any chest pain or shortness of breath no nausea vomiting. Eating fairly well. Feels improved, lower extremity edema improved significantly. She feels comfortable to go home today. Hospital Course Pleasant 67-year-old female with multiple medical problems, oxygen dependent, now with worsening kidney function. She received hemodialysis while inpatient. Patient is discharged home in stable condition to follow-up with PCP and consultants patient refused to go to intermediate facility . NEURO/PSYCH: Anxiety disorder NOS Diabetic retinopathy Diabetic neuropathy Chronic pain syndrome Acetaminophen 650 mg p.o. every 4 hours as needed for fever Hydrocodone/acetaminophen 7.5/325 with 1 tablet every 4 hours as needed pain 3-5 Alprazolam 0.5 mg p.o. every 8 hours as needed anxiety Neuro stable RESP: Acute on chronic hypoxemic respiratory failure secondary to COPD/large left pleural effusion COPD -3 L oxygen dependent Currently on nasal cannula at 2 L to maintain saturations greater than 92%. Incentive spirometry while awake -Status post emergency left thoracentesis with 1.6 L straw-colored fluid removed Chest x-ray 03/07 reveals left greater than right pleural effusion -03/04 Vas-Cath for emergent hemodialysis -Continue albuterol/ipratropium aerosols every 4 hours with albuterol aerosols every 2 hours as needed for dyspnea -Continue budesonide/formoterol 160/4.5 2 puffs twice daily On Tiotropium 18 micrograms inhalation daily per pulmonology -BiPAP when necessary, EzPAP, acapella - Prednisone tapered and DC - DC Lasix per nephro - Dr. Krzysztof molina - repeat CXR improved- likely more picture of edema than infectious - DC Cefepime (received total 7 days) CV: Coronary artery disease status post stent 2 Essential hypertension Congestive heart failure likely diastolic Dyslipidemia Paroxysmal atrial fibrillation -Chest x-ray and BNP elevation consistent with CHF exacerbation -Increasing pleural effusions despite thoracentesis and Bumetanide infusion -Vas-Cath placement and hemodialysis 03/04 Nifedipine extended release 30 mg twice daily, doxazosin 4 mg daily, carvedilol 12.5 mg twice daily and hydralazine 100 mg every 8 hours Continue prasugrel 10 mg p.o. daily and aspirin 81 mg p.o. daily Continue atorvastatin 40 mg p.o. daily 2-D echo revealed EF 55% in Dec 2017. continue above meds and adjust dosages GI: Hiatal hernia Hypoalbuminemia -advance diet to renal diet. -Famotidine for GI prophylaxis Docusate sodium/senna 1 tablet twice daily for bowel regimen Renal/: Acute kidney injury - creatinine stabilizing , however noted worsening again , nephro ff. - resolving- good urine output - Vas-Cath placed 03/04 for intermittent hemodialysis -Monitor renal function clos per nephrology . Lim catheter. - on Lasix 80 mg q 12 IV Accurate I's and O nephrology following. C diff colitis - history of + C diff - last 12/21- treated with po Vancomycin - start Vancomycin 125 mg po qid today 03/10 - ff stool output -DC IV Cefepime HEME: -Monitor CBC, CMP, coags On iron sulfate 325 mg p.o. twice daily ENDO: Diabetes mellitus type 2, uncontrolled with A1c of 7.6 Currently Novulin N 8 units in morning 4 units at night Continue with sliding scale insulin/moderate regimen of NovoLog adjust as po intake improves Protein calorie malnutrition albumin low 1.6. PROPH: -Bilateral lower extremity SCDs. Heparin 5000 units subcutaneous every 12. Famotidine for GI prophylaxis DC planning- home with home PT. patient wants home with home health refusing snf. Cleared by nephrology for discharge. Discontinue Lasix at discharge. Edema in her legs improved. Patient was discharged home with home health in stable condition to follow-up PCP and consultants as outpatient. Pt Condition on Discharge: Stable Discharge Disposition: Disch w/ Home Health Serv Discharge Time: > 30 minutes Discharge Instructions DIET: Follow Instructions for: Heart Healthy Diet, Renal Failure Diet Activities you can perform: Regular-No Restrictions Follow up Referrals: Appointment for Follow Up @ NEPHROLOGY Nephrology - 1 Week with Chay Schwartz MD PCP Follow-up - 2-3 Days PCP Follow-up @ DR. KRISTEL SMITH Pulmonology - 1 Week Pulmonology with Aaron Blankenship MD [facility]/ with Nurse Cto ([phone]) New Medications: Vancomycin Inj (Vancomycin Inj) 500 Mg Inj 125 MG PO QID for c diff for 12 Days, INJECTION use injectable form of vanco by mouth [Budeson-Formot 160-4.5 Mcg Inh] () 60 PUFF AERO 2 PUFF INH Q12HR for Shortness of Breath for 30 Days, INHALER Continued Medications: Acetaminophen (Tylenol) 325 Mg Tab 325 MG PO Q4H PRN for PAIN SCALE 1 TO 5, TAB 0 Refills Albuterol 18 GM Inh (Ventolin Hfa 18 GM Inh) 90 Mcg/Act Aer 2 PUFF INH Q4-6H PRN for SHORTNESS OF BREATH, #1 INHALER 3 Refills Aspirin (Aspirin) 81 Mg Chew 81 MG CHEW DAILY, TAB 0 Refills Atorvastatin (Atorvastatin) 40 Mg Tab 40 MG PO HS for Cholesterol Management, #30 TAB 2 Refills Carvedilol (Coreg) 6.25 Mg Tab 6.25 MG PO Q12HR for Blood Pressure Management, #60 TAB 3 Refills Clonidine (Catapres) 0.1 Mg Tab 0.1 MG PO Q6H PRN for Uncontrolled Blood Pressure, #30 TAB Doxazosin (Cardura) 2 Mg Tab 2 MG PO DAILY for Blood Pressure Management, #30 TAB 3 Refills Doxazosin (Cardura) 2 Mg Tab 2 MG PO DAILY for Blood Pressure Management, #30 TAB 3 Refills Ferrous Sulfate (Ferosul) 325 Mg (65 Mg Iron) Tablet 325 MG PO BID for Immunosuppression, #60 MG 3 Refills Hydralazine HCl (Hydralazine HCl) 50 Mg Tablet 75 MG PO Q8HR for Blood Pressure Management, #90 MG 3 Refills Hydrocodone-Acetaminophen (Hydrocodone-Acetaminophen) 5-325 mg Tab 1 TAB PO Q6H PRN for PAIN, #10 TAB 0 Refills (This prescription has been renewed ) Insulin Aspart Inj (Novolog Inj) 100 Unit/Ml Inj 1 UNITS SQ ACHS SLIDING SCALE for Blood Sugar Management for 30 Days, INJECTION Sliding Scale As Directed.150-199 1 Unit; 200-249 3 units; 250-299 5 Units; 300-349 7 Units; Insulin Detemir Inj (Levemir Inj) 1,000 unit/ 10 ML Vial 5 UNITS SQ Q12HR for Blood Sugar Management, #100 INJECTION 3 Refills Do not mix with any other Insulin. Ipratropium HFA 12.9 GM Inh (Atrovent HFA 12.9 GM Inh) 17 Mcg/Actuation Aer 2 PUFF INH Q6HR PRN for SHORTNESS OF BREATH, #1 INHALER 3 Refills Ipratropium-Albuterol Neb (Duoneb) 0.5-2.5 Mg/3 Ml Neb 1 NEBULE INH Q4HR NEB for SHORTNESS OF BREATH, #120 NEBULE 1 Refill Isosorbide Mononitrate ER (Isosorbide Mononitrate ER) 60 Mg Tab 60 MG PO DAILY for Prevent Chest Pain, #30 TAB 0 Refills Nifedipine ER 24 HR (Nifedipine ER 24 HR) 30 Mg Tab 30 MG PO Q12HR for Blood Pressure Management, #60 TAB 3 Refills Prasugrel (Effient) 10 Mg Tab 10 MG PO DAILY for Blood Clot Prevention, #30 TAB 0 Refills Spironolactone (Aldactone) 25 Mg Tab 12.5 MG PO DAILY for Prevent Heart Failure, #30 TAB 3 Refills Discontinued Medications: Furosemide (Furosemide) 40 Mg Tab 40 MG PO BID@,18 for Prevent Heart Failure, #60 TAB 3 Refills Lay Camacho MD Mar 11, 2018 12:01
[2018-03-11] MEDS ORDERED: VANC500I3 PO (12:07)
[2018-03-11] MEDS: PRASUGREL 10 MG TAB PO SCH (15:20)
--- NOTE | 2018-03-11 17:38 | HHI.PR ---
Subjective Remarks 67 YOWF with COPD,CAD,Pl eff No Fever, cough or sp Making urine Weaned to 4LNC No new complaint Objective Vital Signs Vital Signs Date Time Temp Pulse Resp B/P (MAP) Pulse Ox O2 Delivery O2 Flow Rate FiO2 03/11/18 16:00 98.0 57 20 137/65 (89) 93 03/11/18 12:00 98.0 78 20 132/63 (86) 92 03/11/18 09:00 Nasal Cannula 3.00 03/11/18 08:05 92 Nasal Cannula 3.00 03/11/18 08:00 80 03/11/18 08:00 98.1 79 20 152/68 (96) 92 03/11/18 04:05 61 03/11/18 04:00 98.0 76 18 178/78 (111) 93 03/11/18 04:00 Nasal Cannula 3.00 03/11/18 00:00 Nasal Cannula 3.00 03/11/18 00:00 98.5 66 17 176/73 (107) 94 03/10/18 23:49 81 03/10/18 21:55 Nasal Cannula 3.00 03/10/18 20:00 98.6 60 17 168/74 (105) 96 03/10/18 20:00 Nasal Cannula 3.00 03/10/18 19:44 62 I/O 03/10/18 03/10/18 03/10/18 03/11/18 03/11/18 03/11/18 07:00 15:00 23:00 07:00 15:00 23:00 Intake Total 480 ml 420 ml Output Total 700 ml 3000 ml 1150 ml Balance -220 ml -3000 ml -730 ml Intake Oral 480 ml 420 ml Output Urine Total 700 ml 950 ml Stool Total 3000 ml Emesis 200 ml # Bowel Movements 1 Result Diagram: 03/11/1852203/11/18522 Objective Remarks GENERAL: MBMN WF mild sob SKIN: Warm and dry. HEAD: Normocephalic. EYES: No scleral icterus. No injection or drainage. NECK: Supple, trachea midline. No JVD or lymphadenopathy. CARDIOVASCULAR: Regular rate and rhythm without murmurs, gallops, or rubs. RESPIRATORY: Breath sounds equal bilaterally. No accessory muscle use. GASTROINTESTINAL: Abdomen soft, non-tender, nondistended. MUSCULOSKELETAL: No cyanosis, or edema. BACK: Nontender without obvious deformity. No CVA tenderness. A/P Assessment and Plan IMPRESSION: 1. Congestive heart failure. 2. Respiratory failure with hypoxia. 3. Chronic obstructive pulmonary disease. 4. Pleural effusion. 5. Coronary artery disease, status post recent stent placement. 6. History of Clostridium difficile colitis. 7. Chronic kidney disease. PLAN: Supplement 02 with 4LNC and wean 02 Aerosol nebs PO Steroids Cont Abx DC plans underway Stable from pulm standpoint Aaron Blankenship MD Mar 11, 2018 17:38
[2018-03-11] MEDS ORDERED: FUROSEMIDE 40 MG/4 ML VIAL IV PUSH SCH (18:00)
[2018-03-11] MEDS: FUROSEMIDE 40 MG/4 ML VIAL IV PUSH SCH (18:18)
[2018-03-11] MEDS: ATORVASTATIN 40 MG TAB PO SCH (22:01)
[2018-03-12] VITALS (11 sets, daily range): BP systolic 127–155; BP diastolic 60–67; PULSE 63–87; RESP 18–20; TEMP 97.5–98.1; O2SAT 93–97
[2018-03-12] MEDS: ISOSORBIDE MONONITRATE 60 MG CR TAB (IMDUR) PO SCH (05:53)
[2018-03-12] MEDS: hydrALAZINE HCL 100 MG TAB PO SCH ×3 (05:53→23:11)
[2018-03-12 06:35] LABS: AUTOMATED NEUTROPHIL # 5.6 TH/MM3 (1.8-7.7); BASOPHIL % 0.2 % (0.0-2.0); EOSINOPHIL % 0.1 % (0.0-4.0); HEMATOCRIT 31.6 % (35.0-46.0); HEMOGLOBIN 10.5 GM/DL (11.6-15.3); LYMPH % 10.9 % (9.0-44.0); LYMPHOCYTE # 0.7 TH/MM3 (1.0-4.8); MEAN CORPUSCULAR HEMOGLOBIN 29.9 PG (27.0-34.0); MEAN CORPUSCULAR HGB CONC 33.2 % (32.0-36.0); MEAN PLATELET VOLUME 8.8 FL (7.0-11.0); MONO % 6.3 % (0.0-8.0); MONOCYTE # 0.4 TH/MM3 (0-0.9); NEUT % 82.5 % (16.0-70.0); PLATELET COUNT 223 TH/MM3 (150-450); RED BLOOD COUNT 3.51 MIL/MM3 (4.00-5.30); RED CELL DISTRIBUTION WIDTH 16.5 % (11.6-17.2); WHITE BLOOD COUNT 6.8 TH/MM3 (4.0-11.0)
[2018-03-12 06:56] LABS: BICARBONATE 30.4 MEQ/L (21.0-32.0); CALCIUM 8.9 MG/DL (8.5-10.1); CREATININE 2.11 MG/DL (0.50-1.00)
--- NOTE | 2018-03-12 08:54 | HHI.PR ---
Subjective Remarks Patient is in bed. Pleasant. Says she would like to go home with home health and not to group home facility. Says she feels much better today however she is tired. No nausea vomiting no diarrhea or constipation. Says she is eating fairly well since she does not like the food here in the hospital. Objective Vitals Vital Signs Date Time Temp Pulse Resp B/P (MAP) Pulse Ox O2 Delivery O2 Flow Rate FiO2 03/12/18 05:57 98.1 67 20 152/67 (95) 95 03/12/18 04:30 65 03/12/18 01:19 97.5 80 20 127/60 (82) 97 03/12/18 00:30 80 03/11/18 20:30 59 03/11/18 20:10 Nasal Cannula 3.00 03/11/18 20:00 97.9 59 20 134/62 (86) 96 03/11/18 16:00 98.0 57 20 137/65 (89) 93 03/11/18 16:00 60 03/11/18 12:00 98.0 78 20 132/63 (86) 92 03/11/18 09:00 Nasal Cannula 3.00 I/O 03/11/18 03/11/18 03/11/18 03/12/18 03/12/18 03/12/18 07:00 15:00 23:00 07:00 15:00 23:00 Intake Total 420 ml 480 ml 120 ml Output Total 1150 ml 275 ml 750 ml Balance -730 ml 205 ml -630 ml Intake Oral 420 ml 480 ml 120 ml Output Urine Total 950 ml 275 ml 750 ml Emesis 200 ml # Bowel Movements 1 Result Diagram: 03/12/18 0555 03/12/18 0555 Imaging Last Impressions Chest X-Ray 03/09/18 0600 Signed Impressions: Service Date/Time: Friday, March 09, 2018 04:13 - CONCLUSION: Improving airspace disease. Bibasilar densities and pleural effusions. Je Fletcher MD Objective Remarks GENERAL: Pleasant 67-year-old female awake and alert, appears tired. CARDIOVASCULAR: Regular rate and rhythm. RESPIRATORY: No accessory muscle use. Decreased breath sounds, decreased vocal fremitus left base, no wheezes GASTROINTESTINAL: Abdomen soft, non-tender, nondistended. Hepatic and splenic margins not palpable. MUSCULOSKELETAL: Extremities without clubbing, cyanosis. Trace pretibial edema. No obvious deformities. NEUROLOGICAL: Awake and alert. No obvious cranial nerve deficits. Motor grossly within normal limits. Five out of 5 muscle strength in the arms and legs. Normal speech. PSYCHIATRIC: Appropriate mood and affect; insight and judgment normal. Procedures RIGHT IJ VASCATH - DR CHOUDHARY 03/03 - Left-sided thoracentesis Date of Insertion: Mar 03, 2018 A/P Assessment and Plan NEURO/PSYCH: Anxiety disorder NOS Diabetic retinopathy Diabetic neuropathy Chronic pain syndrome Acetaminophen 650 mg p.o. every 4 hours as needed fever Hydrocodone/acetaminophen 7.5/325 with 1 tablet every 4 hours as needed pain 3-5 Alprazolam 0.5 mg p.o. every 8 hours as needed anxiety Neuro stable RESP: Acute on chronic hypoxemic respiratory failure secondary to COPD/large left pleural effusion COPD -3 L oxygen dependent Currently on nasal cannula at 2 L to maintain saturations greater than 92% Incentive spirometry while awake -Status post emergency left thoracentesis with 1.6 L straw-colored fluid removed Chest x-ray 03/07 reveals left greater than right pleural effusion -03/04 Vas-Cath for emergent hemodialysis -Continue albuterol/ipratropium aerosols every 4 hours with albuterol aerosols every 2 hours as needed for dyspnea -Continue budesonide/formoterol 160/4.5 2 puffs twice daily On Tiotropium 18 micrograms inhalation daily per pulmonology -BiPAP when necessary, EzPap acapella ordered - Prednisone tapered to 10 mg po tid today 03/10 - Lasix 80 mg IV twice daily (at home on 40 mg bid) - Dr. Blankenship ff - repeat CXR improved- likely more picture of edema than infectious - DC Cefepime (received total 7 days) CV: Coronary artery disease status post stent 2 Essential hypertension Congestive heart failure likely diastolic Dyslipidemia Paroxysmal atrial fibrillation -Chest x-ray and BNP elevation consistent with CHF exacerbation -Increasing pleural effusions despite thoracentesis and Bumetanide infusion -Vas-Cath placement and hemodialysis 03/04 Nifedipine extended release 30 mg twice daily, doxazosin 4 mg daily, carvedilol 12.5 mg twice daily and hydralazine 100 mg every 8 hours Continue prasugrel 10 mg p.o. daily and aspirin 81 mg p.o. daily Continue atorvastatin 40 mg p.o. daily 2-D echo revealed EF 55% in Dec 2017. continue above meds and adjust dosages GI: Hiatal hernia Hypoalbuminemia -advance diet to renal diet. -Famotidine for GI prophylaxis Docusate sodium/senna 1 tablet twice daily for bowel regimen Renal/: Acute kidney injury - creatinine stabilizing , however noted worsening again , nephro ff. - resolving- good urine output - Vas-Cath placed 03/04 for intermittent hemodialysis -Monitor renal function clos per nephrology . Lim catheter. - on Lasix 80 mg q 12 IV Accurate I's and O nephrology following. C diff colitis - history of + C diff - last 12/21- treated with po Vancomycin - start Vancomycin 125 mg po qid today 03/10 - ff stool output -DC IV Cefepime HEME: -Monitor CBC, CMP, coags On iron sulfate 325 mg p.o. twice daily ENDO: Diabetes mellitus type 2, uncontrolled with A1c of 7.6 Currently Novulin N 8 units in morning 4 units at night Continue with sliding scale insulin/moderate regimen of NovoLog adjust as po intake improves PROPH: -Bilateral lower extremity SCDs. Heparin 5000 units subcutaneous every 12. Famotidine for GI prophylaxis DC planning- SNf vs home with home PT. patient wants home with home health refusing snf. Will have PT daily until able deemed safe for DC home DC when cleared by nephrology Kidney function worsening , nephro ff. Lay Camacho MD Mar 12, 2018 08:54
[2018-03-12] MEDS: DOCUSATE SODIUM 50 MG/SENNA 8.6 MG TAB PO SCH ×2 (08:56→21:00)
[2018-03-12] MEDS: FUROSEMIDE 40 MG/4 ML VIAL IV SCH (08:57)
[2018-03-12] MEDS: CARVEDILOL 12.5 MG TAB PO SCH ×2 (08:58→21:58)
[2018-03-12] MEDS: HEPARIN SODIUM - SQ 10,000 UNITS/ML VIAL SQ SCH ×2 (08:58→21:57)
[2018-03-12] MEDS: DOXAZOSIN MESYLATE 4 MG TAB PO SCH (08:59)
[2018-03-12] MEDS: predniSONE 10 MG TAB PO SCH ×3 (08:59→17:36)
[2018-03-12] MEDS: ASPIRIN 81 MG CHEW TAB CHEW SCH (08:59)
[2018-03-12] MEDS: NIFEdipine 30 MG SUSTAINED RELEASE TAB PO SCH ×2 (08:59→21:58)
[2018-03-12] MEDS: FAMOTIDINE 20 MG TAB PO SCH ×2 (08:59→21:57)
[2018-03-12] MEDS ORDERED: FUROSEMIDE 40 MG/5 ML UNIT DOSE CUP NG SCH (09:00)
[2018-03-12] MEDS: PRASUGREL 10 MG TAB PO SCH (09:01)
[2018-03-12] MEDS: BUDESONIDE-FORMOTEROL 160/4.5 MCG INHALER INH SCH ×2 (09:03→21:59)
[2018-03-12] MEDS: TIOTROPIUM BROMIDE 18 MCG INH INH SCH (09:03)
[2018-03-12] MEDS: INSULIN HUMAN NPH 1,000 UNITS/10 ML VIAL SQ SCH ×2 (09:06→18:56)
[2018-03-12] MEDS: INSULIN ASPART SUPPLEMENTAL SCALE SQ SCH ×4 (09:06→23:12)
[2018-03-12] MEDS: VANCOMYCIN 500 MG VIAL (FOR ORAL USE ONLY) PO SCH ×4 (09:07→21:59)
[2018-03-12] MEDS: SODIUM CHLORIDE 0.9% FLUSH 10 ML FLUSH IV FLUSH SCH ×2 (09:10→21:59)
[2018-03-12] MEDS: FERROUS SULFATE 325 MG (65 MG ELEMENTAL IRON) TAB PO SCH ×2 (09:21→21:58)
[2018-03-12] MEDS: MUPIROCIN 2% OINT 1 APPLIC/GM SYR EACH NARE SCH ×2 (09:21→21:59)
--- NOTE | 2018-03-12 10:29 | HHI.NPPN ---
Subjective History of Present Illness Patient is a 67 year old female with past medical history of Diabetes mellitus, hypertension, arthritis, hyperlipidemia, ischemic heart disease, diastolic CHF, and chronic kidney disease stage IV. Patient presented to ED with worsening shortness of breath since Wednesday and increased in bilateral lower extremity edema. She complains of weakness, fatigue, nausea, headache, dizziness, anxiety , and pain in lower extremity. Nephrology was consulted for chronic kidney disease with acute worsening and fluid overload. Patients creatine is found to be 3.06 with a GFR of 15 ml/min. Potassium level of 5.5. Patient baseline creatinine is has been running at 2.1 to 2.5 in 11/14. This is a known patient of Dr. Toro Additional Remarks Non oliguric. Creatinine is 2.11 Review of Systems Respiratory Respiratory Remarks denies SOB Cardiovascular Cardiac Remarks Denies CP Gastrointestinal Gastrointestinal: Nausea & Vomiting, Diarrhea GI Remarks Denies abdominal pain Objective Data Data Vital Signs Date Time Temp Pulse Resp B/P (MAP) Pulse Ox O2 Delivery O2 Flow Rate FiO2 03/12/18 07:59 87 03/12/18 07:59 Nasal Cannula 3.00 03/12/18 05:57 98.1 67 20 152/67 (95) 95 03/12/18 04:30 65 03/12/18 01:19 97.5 80 20 127/60 (82) 97 03/12/18 00:30 80 03/11/18 20:30 59 03/11/18 20:10 Nasal Cannula 3.00 03/11/18 20:00 97.9 59 20 134/62 (86) 96 03/11/18 16:00 98.0 57 20 137/65 (89) 93 03/11/18 16:00 60 03/11/18 12:00 98.0 78 20 132/63 (86) 92 -: 03/12/18 0555 03/12/18 0555 Tubes & Lines: Vas-Cath Tubes & Lines Comment right chest wall Physical Exam General Appearance: No Acute Distress, Comfortable Eyes Eye Exam: Pupils Equal Pulmonary Resp Exam: Breath Sounds Equal, No Distress, Decreased Bases Cardiology CV Exam: Regular Gastrointestinal/Abdomen GI Exam: Soft, Non-Tender, Bowel Sounds Present Genitourinary Exam: Flank Non-Tender Integumentary Skin Exam: Clear, Warm, Dry Extremeties Extremities Exam: Trace Edema Neurologic Neuro Exam: Alert, Awake Psychiatric Psych Exam: Appropriate Responses Assessment/Plan Problem List: (1) Chronic kidney disease (CKD) stage G4/A1, severely decreased glomerular filtration rate (GFR) between 15-29 mL/min/1.73 square meter and albuminuria creatinine ratio less than 30 mg/g ICD Codes: N18.4 - Chronic kidney disease, stage 4 (severe) Plan: Patients baseline creatinine at 2.1-2.5 in October 2017 HD started on 03/04/19 Currently non oliguric. Avoid nephrotoxins. Renal dose antibiotics No indication for dialysis today. (2) Diastolic CHF, acute ICD Codes: I50.31 - Acute diastolic (congestive) heart failure Plan: thoracentesis 1.4 liters removed. (3) Anemia ICD Codes: D64.9 - Anemia, unspecified Plan: Improved. Chay Schwartz MD Mar 12, 2018 10:29
[2018-03-12] MEDS: FUROSEMIDE 40 MG/4 ML VIAL IV PUSH SCH (17:36)
[2018-03-12] MEDS: ATORVASTATIN 40 MG TAB PO SCH (21:58)
[2018-03-12] MEDS: ALPRAZolam 0.5 MG TAB PO PRN (21:58)
[2018-03-13] VITALS (7 sets, daily range): BP systolic 126–155; BP diastolic 61–79; PULSE 59–87; RESP 18–20; TEMP 97.4–98; O2SAT 93–96
[2018-03-13] MEDS: ISOSORBIDE MONONITRATE 60 MG CR TAB (IMDUR) PO SCH (06:22)
[2018-03-13] MEDS: hydrALAZINE HCL 100 MG TAB PO SCH ×3 (06:22→21:46)
[2018-03-13 06:55] LABS: AUTOMATED NEUTROPHIL # 5.9 TH/MM3 (1.8-7.7); BASOPHIL % 0.2 % (0.0-2.0); HEMATOCRIT 33.6 % (35.0-46.0); HEMOGLOBIN 11.4 GM/DL (11.6-15.3); LYMPH % 8.7 % (9.0-44.0); LYMPHOCYTE # 0.6 TH/MM3 (1.0-4.8); MEAN CELL VOLUME 90.1 FL (80.0-100.0); MEAN CORPUSCULAR HEMOGLOBIN 30.5 PG (27.0-34.0); MEAN CORPUSCULAR HGB CONC 33.8 % (32.0-36.0); MEAN PLATELET VOLUME 8.6 FL (7.0-11.0); MONOCYTE # 0.4 TH/MM3 (0-0.9); NEUT % 85.1 % (16.0-70.0); PLATELET COUNT 249 TH/MM3 (150-450); RED BLOOD COUNT 3.73 MIL/MM3 (4.00-5.30); RED CELL DISTRIBUTION WIDTH 16.4 % (11.6-17.2); WHITE BLOOD COUNT 6.9 TH/MM3 (4.0-11.0)
[2018-03-13 07:05] LABS: BICARBONATE 30.9 MEQ/L (21.0-32.0); CALCIUM 9.2 MG/DL (8.5-10.1); CREATININE 2.67 MG/DL (0.50-1.00)
[2018-03-13] MEDS: CARVEDILOL 12.5 MG TAB PO SCH ×2 (08:39→21:46)
[2018-03-13] MEDS: INSULIN HUMAN NPH 1,000 UNITS/10 ML VIAL SQ SCH ×2 (08:39→18:43)
[2018-03-13] MEDS: INSULIN ASPART SUPPLEMENTAL SCALE SQ SCH ×4 (08:39→21:46)
[2018-03-13] MEDS: PRASUGREL 10 MG TAB PO SCH (08:40)
[2018-03-13] MEDS: VANCOMYCIN 500 MG VIAL (FOR ORAL USE ONLY) PO SCH ×4 (08:40→21:59)
[2018-03-13] MEDS: NIFEdipine 30 MG SUSTAINED RELEASE TAB PO SCH ×2 (08:40→21:46)
[2018-03-13] MEDS: DOCUSATE SODIUM 50 MG/SENNA 8.6 MG TAB PO SCH ×2 (08:40→21:46)
[2018-03-13] MEDS: FAMOTIDINE 20 MG TAB PO SCH ×2 (08:40→21:45)
[2018-03-13] MEDS: FERROUS SULFATE 325 MG (65 MG ELEMENTAL IRON) TAB PO SCH ×2 (08:40→21:46)
[2018-03-13] MEDS: ASPIRIN 81 MG CHEW TAB CHEW SCH (08:40)
[2018-03-13] MEDS: predniSONE 10 MG TAB PO SCH ×2 (08:41→12:56)
[2018-03-13] MEDS: MUPIROCIN 2% OINT 1 APPLIC/GM SYR EACH NARE SCH ×2 (08:41→21:00)
[2018-03-13] MEDS: DOXAZOSIN MESYLATE 4 MG TAB PO SCH (08:41)
[2018-03-13] MEDS: SODIUM CHLORIDE 0.9% FLUSH 10 ML FLUSH IV FLUSH SCH ×2 (08:41→21:44)
[2018-03-13] MEDS: FUROSEMIDE 40 MG/4 ML VIAL IV SCH (08:41)
[2018-03-13] MEDS: BUDESONIDE-FORMOTEROL 160/4.5 MCG INHALER INH SCH ×2 (08:42→21:44)
[2018-03-13] MEDS: HEPARIN SODIUM - SQ 10,000 UNITS/ML VIAL SQ SCH ×2 (08:42→21:45)
[2018-03-13] MEDS: TIOTROPIUM BROMIDE 18 MCG INH INH SCH (08:43)
--- NOTE | 2018-03-13 09:25 | HHI.FF ---
Face to Face Verification Diagnosis: (1) CONOR (acute kidney injury) (2) Diabetes mellitus with peripheral vascular disease (3) Acute kidney insufficiency (4) COPD (chronic obstructive pulmonary disease) (5) Pleural effusion (6) CAD (coronary artery disease) (7) Chronic kidney disease, stage 4 (severe) (8) CHF (congestive heart failure) Physical Therapy Order: Evaluate and Treat Home Health Nursing Order: Medical education Signs/symptoms of disease process Medication education-adverse effect Nursing assessment with vital signs I have seen patient Brinda Maynard on 03/13/18. My clinical findings support the need for the requested home health care services because: Ltd mobility - disease progression I certify that my clinical findings support that this patient is homebound because: Post-op weakness Lay Camacho MD Mar 13, 2018 09:25
--- NOTE | 2018-03-13 12:19 | HHI.NPPN ---
Subjective History of Present Illness Patient is a 67 year old female with past medical history of Diabetes mellitus, hypertension, arthritis, hyperlipidemia, ischemic heart disease, diastolic CHF, and chronic kidney disease stage IV. Patient presented to ED with worsening shortness of breath since Wednesday and increased in bilateral lower extremity edema. She complains of weakness, fatigue, nausea, headache, dizziness, anxiety , and pain in lower extremity. Nephrology was consulted for chronic kidney disease with acute worsening and fluid overload. Patients creatine is found to be 3.06 with a GFR of 15 ml/min. Potassium level of 5.5. Patient baseline creatinine is has been running at 2.1 to 2.5 in 11/14. This is a known patient of Dr. Toro Additional Remarks Non oliguric. Creatinine is worse. Review of Systems Respiratory Respiratory Remarks denies SOB Cardiovascular Cardiac Remarks Denies CP Gastrointestinal Gastrointestinal: Nausea & Vomiting, Diarrhea GI Remarks Denies abdominal pain Objective Data Data Vital Signs Date Time Temp Pulse Resp B/P (MAP) Pulse Ox O2 Delivery O2 Flow Rate FiO2 03/13/18 08:00 97.8 67 18 143/67 (92) 93 03/13/18 04:00 82 03/13/18 04:00 97.6 81 19 155/79 (104) 96 03/13/18 00:00 66 03/13/18 00:00 98.0 64 20 151/75 (100) 95 03/12/18 22:00 Room Air 3.00 03/12/18 21:04 Nasal Cannula 3.00 03/12/18 20:00 72 03/12/18 20:00 97.8 71 18 147/60 (89) 94 03/12/18 16:00 84 03/12/18 16:00 98.1 67 18 142/67 (92) 93 03/12/18 14:29 81 155/67 (96) 03/12/18 12:21 80 -: 03/13/18 0545 03/13/18 0545 Tubes & Lines: Vas-Cath Tubes & Lines Comment right chest wall Physical Exam General Appearance: No Acute Distress, Comfortable Eyes Eye Exam: Pupils Equal Pulmonary Resp Exam: Breath Sounds Equal, No Distress, Decreased Bases Cardiology CV Exam: Regular Gastrointestinal/Abdomen GI Exam: Soft, Non-Tender, Bowel Sounds Present Genitourinary Exam: Flank Non-Tender Integumentary Skin Exam: Clear, Warm, Dry Extremeties Extremities Exam: Trace Edema Neurologic Neuro Exam: Alert, Awake Psychiatric Psych Exam: Appropriate Responses Assessment/Plan Problem List: (1) Chronic kidney disease (CKD) stage G4/A1, severely decreased glomerular filtration rate (GFR) between 15-29 mL/min/1.73 square meter and albuminuria creatinine ratio less than 30 mg/g ICD Codes: N18.4 - Chronic kidney disease, stage 4 (severe) Plan: Patients baseline creatinine at 2.1-2.5 in October 2017 HD started on 03/04/19 Currently non oliguric. I will hold Lasix and monitor. Avoid nephrotoxins. Renal dose antibiotics No indication for dialysis today. Not ready for discharge however. (2) Diastolic CHF, acute ICD Codes: I50.31 - Acute diastolic (congestive) heart failure Plan: thoracentesis 1.4 liters removed. (3) Anemia ICD Codes: D64.9 - Anemia, unspecified Plan: Improved. Chay Schwartz MD Mar 13, 2018 12:19
--- NOTE | 2018-03-13 14:19 | HHI.PR ---
Subjective Remarks In bed, wants to go home to her pets. Patient says she feels much better However I explained to the patient she is not cleared by nephrology No plan for repeat HD so far. No n/v/d/c. Says she is not eating much because she doesn't like the food. Objective Vitals Vital Signs Date Time Temp Pulse Resp B/P (MAP) Pulse Ox O2 Delivery O2 Flow Rate FiO2 03/13/18 12:00 97.4 60 18 126/61 (82) 93 03/13/18 08:00 97.8 67 18 143/67 (92) 93 03/13/18 04:00 82 03/13/18 04:00 97.6 81 19 155/79 (104) 96 03/13/18 00:00 66 03/13/18 00:00 98.0 64 20 151/75 (100) 95 03/12/18 22:00 Room Air 3.00 03/12/18 21:04 Nasal Cannula 3.00 03/12/18 20:00 72 03/12/18 20:00 97.8 71 18 147/60 (89) 94 03/12/18 16:00 84 03/12/18 16:00 98.1 67 18 142/67 (92) 93 03/12/18 14:29 81 155/67 (96) I/O 03/12/18 03/12/18 03/12/18 03/13/18 03/13/18 03/13/18 07:00 15:00 23:00 07:00 15:00 23:00 Intake Total 120 ml 480 ml 355 ml Output Total 750 ml 2000 ml 700 ml Balance -630 ml -1520 ml -345 ml Intake Oral 120 ml 480 ml 355 ml Output Urine Total 750 ml 2000 ml 700 ml # Voids 1 Result Diagram: 03/13/18 0545 03/13/18 0545 Imaging Last Impressions Chest X-Ray 03/09/18 0600 Signed Impressions: Service Date/Time: Friday, March 09, 2018 04:13 - CONCLUSION: Improving airspace disease. Bibasilar densities and pleural effusions. Je Fletcher MD Objective Remarks GENERAL: Pleasant 67-year-old female awake and alert, appears tired. CARDIOVASCULAR: Regular rate and rhythm. RESPIRATORY: No accessory muscle use. Decreased breath sounds, decreased vocal fremitus left base, no wheezes GASTROINTESTINAL: Abdomen soft, non-tender, nondistended. Hepatic and splenic margins not palpable. MUSCULOSKELETAL: Extremities without clubbing, cyanosis. Trace pretibial edema. No obvious deformities. NEUROLOGICAL: Awake and alert. No obvious cranial nerve deficits. Motor grossly within normal limits. Five out of 5 muscle strength in the arms and legs. Normal speech. PSYCHIATRIC: Appropriate mood and affect; insight and judgment normal. Procedures RIGHT IJ VASCATH 4- DR CHOUDHARY 03/03 - Left-sided thoracentesis Date of Insertion: Mar 03, 2018 A/P Assessment and Plan NEURO/PSYCH: Anxiety disorder NOS Diabetic retinopathy Diabetic neuropathy Chronic pain syndrome Acetaminophen 650 mg p.o. every 4 hours as needed for fever Hydrocodone/acetaminophen 7.5/325 with 1 tablet every 4 hours as needed pain 3-5 Alprazolam 0.5 mg p.o. every 8 hours as needed anxiety Neuro stable RESP: Acute on chronic hypoxemic respiratory failure secondary to COPD/large left pleural effusion COPD -3 L oxygen dependent Currently on nasal cannula at 2 L to maintain saturations greater than 92% Incentive spirometry while awake -Status post emergency left thoracentesis with 1.6 L straw-colored fluid removed Chest x-ray 03/07 reveals left greater than right pleural effusion -03/04 Vas-Cath for emergent hemodialysis -Continue albuterol/ipratropium aerosols every 4 hours with albuterol aerosols every 2 hours as needed for dyspnea -Continue budesonide/formoterol 160/4.5 2 puffs twice daily On Tiotropium 18 micrograms inhalation daily per pulmonology -BiPAP when necessary, EzPAP, acapella - Prednisone tapered and DC - DC Lasix per nephro - Dr. Blankenship ff - repeat CXR improved- likely more picture of edema than infectious - DC Cefepime (received total 7 days) CV: Coronary artery disease status post stent 2 Essential hypertension Congestive heart failure likely diastolic Dyslipidemia Paroxysmal atrial fibrillation -Chest x-ray and BNP elevation consistent with CHF exacerbation -Increasing pleural effusions despite thoracentesis and Bumetanide infusion -Vas-Cath placement and hemodialysis 03/04 Nifedipine extended release 30 mg twice daily, doxazosin 4 mg daily, carvedilol 12.5 mg twice daily and hydralazine 100 mg every 8 hours Continue prasugrel 10 mg p.o. daily and aspirin 81 mg p.o. daily Continue atorvastatin 40 mg p.o. daily 2-D echo revealed EF 55% in Dec 2017. continue above meds and adjust dosages GI: Hiatal hernia Hypoalbuminemia -advance diet to renal diet. -Famotidine for GI prophylaxis Docusate sodium/senna 1 tablet twice daily for bowel regimen Renal/: Acute kidney injury - creatinine stabilizing , however noted worsening again , nephro ff. - resolving- good urine output - Vas-Cath placed 03/04 for intermittent hemodialysis -Monitor renal function clos per nephrology . Lim catheter. - on Lasix 80 mg q 12 IV Accurate I's and O nephrology following. C diff colitis - history of + C diff - last 12/21- treated with po Vancomycin - start Vancomycin 125 mg po qid today 03/10 - ff stool output -DC IV Cefepime HEME: -Monitor CBC, CMP, coags On iron sulfate 325 mg p.o. twice daily ENDO: Diabetes mellitus type 2, uncontrolled with A1c of 7.6 Currently Novulin N 8 units in morning 4 units at night Continue with sliding scale insulin/moderate regimen of NovoLog adjust as po intake improves PROPH: -Bilateral lower extremity SCDs. Heparin 5000 units subcutaneous every 12. Famotidine for GI prophylaxis DC planning- SNf vs home with home PT. patient wants home with home health refusing snf. Will have PT daily until able deemed safe for DC home DC when cleared by nephrology Kidney function worsening , nephro ff. Lay Camacho MD Mar 13, 2018 14:18
[2018-03-13] MEDS: ALPRAZolam 0.5 MG TAB PO PRN (21:46)
[2018-03-13] MEDS: ATORVASTATIN 40 MG TAB PO SCH (21:46)
[2018-03-14] VITALS (12 sets, daily range): BP systolic 121–166; BP diastolic 59–74; PULSE 57–67; RESP 17–20; TEMP 97.5–98.5; O2SAT 92–98
[2018-03-14] MEDS: ISOSORBIDE MONONITRATE 60 MG CR TAB (IMDUR) PO SCH (06:00)
[2018-03-14] MEDS: hydrALAZINE HCL 100 MG TAB PO SCH ×3 (06:00→23:05)
[2018-03-14] MEDS: DOCUSATE SODIUM 50 MG/SENNA 8.6 MG TAB PO SCH ×2 (09:00→21:00)
[2018-03-14] MEDS: INSULIN ASPART SUPPLEMENTAL SCALE SQ SCH ×4 (10:08→23:07)
[2018-03-14] MEDS: INSULIN HUMAN NPH 1,000 UNITS/10 ML VIAL SQ SCH ×2 (10:08→17:09)
[2018-03-14] MEDS: ASPIRIN 81 MG CHEW TAB CHEW SCH (10:09)
[2018-03-14] MEDS: MUPIROCIN 2% OINT 1 APPLIC/GM SYR EACH NARE SCH ×2 (10:10→23:06)
[2018-03-14] MEDS: BUDESONIDE-FORMOTEROL 160/4.5 MCG INHALER INH SCH ×2 (10:11→23:08)
[2018-03-14] MEDS: TIOTROPIUM BROMIDE 18 MCG INH INH SCH (10:13)
[2018-03-14] MEDS: FAMOTIDINE 20 MG TAB PO SCH ×2 (10:14→23:05)
[2018-03-14] MEDS: DOXAZOSIN MESYLATE 4 MG TAB PO SCH (10:14)
[2018-03-14] MEDS: SODIUM CHLORIDE 0.9% FLUSH 10 ML FLUSH IV FLUSH SCH ×2 (10:14→23:06)
[2018-03-14] MEDS: CARVEDILOL 12.5 MG TAB PO SCH ×2 (10:14→23:06)
[2018-03-14] MEDS: FERROUS SULFATE 325 MG (65 MG ELEMENTAL IRON) TAB PO SCH ×2 (10:15→23:06)
[2018-03-14 10:16] LABS: ALBUMIN 1.9 GM/DL (3.4-5.0); BICARBONATE 28.9 MEQ/L (21.0-32.0); CALCIUM 8.8 MG/DL (8.5-10.1); CREATININE 2.86 MG/DL (0.50-1.00); PHOSPHORUS 3.6 MG/DL (2.5-4.9)
[2018-03-14] MEDS: NIFEdipine 30 MG SUSTAINED RELEASE TAB PO SCH ×2 (10:16→23:05)
[2018-03-14] MEDS: VANCOMYCIN 500 MG VIAL (FOR ORAL USE ONLY) PO SCH ×4 (10:16→23:07)
[2018-03-14] MEDS: PRASUGREL 10 MG TAB PO SCH (10:18)
[2018-03-14] MEDS: HEPARIN SODIUM - SQ 10,000 UNITS/ML VIAL SQ SCH ×2 (10:20→23:05)
--- NOTE | 2018-03-14 14:47 | HHI.PR ---
Subjective Remarks In bed, says she is not eating much no appetite and she says she also does not like the food. Feels tired. No nausea vomiting or diarrhea or constipation. Kidney function is worsening. Says she is urinating more. Objective Vitals Vital Signs Date Time Temp Pulse Resp B/P (MAP) Pulse Ox O2 Delivery O2 Flow Rate FiO2 03/14/18 11:40 97.5 64 20 137/66 (89) 95 03/14/18 08:20 92 Nasal Cannula 3.00 03/14/18 07:30 97.9 66 20 121/60 (80) 95 03/14/18 07:15 92 Nasal Cannula 3.00 03/14/18 04:00 66 03/14/18 04:00 98.2 65 19 166/74 (104) 94 03/14/18 00:00 64 03/14/18 00:00 Nasal Cannula 3.00 03/14/18 00:00 98.5 58 18 146/67 (93) 98 03/13/18 22:15 Room Air 3.00 03/13/18 20:00 97.5 87 18 153/66 (95) 94 03/13/18 20:00 86 03/13/18 16:00 97.5 68 18 143/65 (91) 95 I/O 03/13/18 03/13/18 03/13/18 03/14/18 03/14/18 03/14/18 07:00 15:00 23:00 07:00 15:00 23:00 Intake Total 355 ml 600 ml 120 ml Output Total 700 ml 400 ml 800 ml Balance -345 ml 200 ml -680 ml Intake Oral 355 ml 600 ml 120 ml Output Urine Total 700 ml 400 ml 800 ml # Voids 1 # Bowel Movements 1 1 Result Diagram: 03/13/18 0545 03/14/18 0906 Imaging Last Impressions Chest X-Ray 03/09/18 0600 Signed Impressions: Service Date/Time: Friday, March 09, 2018 04:13 - CONCLUSION: Improving airspace disease. Bibasilar densities and pleural effusions. Je Fletcher MD Objective Remarks GENERAL: Pleasant 67-year-old female awake and alert, appears tired. CARDIOVASCULAR: Regular rate and rhythm. RESPIRATORY: No accessory muscle use. Decreased breath sounds, decreased vocal fremitus left base, no wheezes GASTROINTESTINAL: Abdomen soft, non-tender, nondistended. Hepatic and splenic margins not palpable. MUSCULOSKELETAL: Extremities without clubbing, cyanosis. Trace pretibial edema. No obvious deformities. NEUROLOGICAL: Awake and alert. No obvious cranial nerve deficits. Motor grossly within normal limits. Five out of 5 muscle strength in the arms and legs. Normal speech. PSYCHIATRIC: Appropriate mood and affect; insight and judgment normal. Procedures RIGHT IJ VASCATH 4- DR CHOUDHARY 03/03 - Left-sided thoracentesis Date of Insertion: Mar 03, 2018 A/P Assessment and Plan NEURO/PSYCH: Anxiety disorder NOS Diabetic retinopathy Diabetic neuropathy Chronic pain syndrome Acetaminophen 650 mg p.o. every 4 hours as needed for fever Hydrocodone/acetaminophen 7.5/325 with 1 tablet every 4 hours as needed pain 3-5 Alprazolam 0.5 mg p.o. every 8 hours as needed anxiety Neuro stable RESP: Acute on chronic hypoxemic respiratory failure secondary to COPD/large left pleural effusion COPD -3 L oxygen dependent Currently on nasal cannula at 2 L to maintain saturations greater than 92% Incentive spirometry while awake -Status post emergency left thoracentesis with 1.6 L straw-colored fluid removed Chest x-ray 03/07 reveals left greater than right pleural effusion -03/04 Vas-Cath for emergent hemodialysis -Continue albuterol/ipratropium aerosols every 4 hours with albuterol aerosols every 2 hours as needed for dyspnea -Continue budesonide/formoterol 160/4.5 2 puffs twice daily On Tiotropium 18 micrograms inhalation daily per pulmonology -BiPAP when necessary, EzPAP, acapella - Prednisone tapered and DC - DC Lasix per nephro - Dr. Blankenship ff - repeat CXR improved- likely more picture of edema than infectious - DC Cefepime (received total 7 days) CV: Coronary artery disease status post stent 2 Essential hypertension Congestive heart failure likely diastolic Dyslipidemia Paroxysmal atrial fibrillation -Chest x-ray and BNP elevation consistent with CHF exacerbation -Increasing pleural effusions despite thoracentesis and Bumetanide infusion -Vas-Cath placement and hemodialysis 03/04 Nifedipine extended release 30 mg twice daily, doxazosin 4 mg daily, carvedilol 12.5 mg twice daily and hydralazine 100 mg every 8 hours Continue prasugrel 10 mg p.o. daily and aspirin 81 mg p.o. daily Continue atorvastatin 40 mg p.o. daily 2-D echo revealed EF 55% in Dec 2017. continue above meds and adjust dosages GI: Hiatal hernia Hypoalbuminemia -advance diet to renal diet. -Famotidine for GI prophylaxis Docusate sodium/senna 1 tablet twice daily for bowel regimen Renal/: Acute kidney injury - creatinine stabilizing , however noted worsening again , nephro ff. - resolving- good urine output - Vas-Cath placed 03/04 for intermittent hemodialysis -Monitor renal function clos per nephrology . Lim catheter. - on Lasix 80 mg q 12 IV Accurate I's and O nephrology following. C diff colitis - history of + C diff - last 12/21- treated with po Vancomycin - start Vancomycin 125 mg po qid today 03/10 - ff stool output -DC IV Cefepime HEME: -Monitor CBC, CMP, coags On iron sulfate 325 mg p.o. twice daily ENDO: Diabetes mellitus type 2, uncontrolled with A1c of 7.6 Currently Novulin N 8 units in morning 4 units at night Continue with sliding scale insulin/moderate regimen of NovoLog adjust as po intake improves PROPH: -Bilateral lower extremity SCDs. Heparin 5000 units subcutaneous every 12. Famotidine for GI prophylaxis DC planning- home with home PT. patient wants home with home health refusing snf. Will have PT daily until able deemed safe for DC home DC when cleared by nephrology Kidney function worsening , nephro ff. Lay Camacho MD Mar 14, 2018 14:47
--- NOTE | 2018-03-14 15:32 | HHI.NPPN ---
Subjective History of Present Illness Patient is a 67 year old female with past medical history of Diabetes mellitus, hypertension, arthritis, hyperlipidemia, ischemic heart disease, diastolic CHF, and chronic kidney disease stage IV. Patient presented to ED with worsening shortness of breath since Wednesday and increased in bilateral lower extremity edema. She complains of weakness, fatigue, nausea, headache, dizziness, anxiety , and pain in lower extremity. Nephrology was consulted for chronic kidney disease with acute worsening and fluid overload. Patients creatine is found to be 3.06 with a GFR of 15 ml/min. Potassium level of 5.5. Patient baseline creatinine is has been running at 2.1 to 2.5 in 11/14. This is a known patient of Dr. Toro Additional Remarks Patient seen earlier in day. Denies any Shortness of breath and edema resolved. (Jessica Clemons) Review of Systems Respiratory Respiratory Remarks denies SOB (Jessica Clemons) Cardiovascular Cardiac Remarks Denies CP (Jessica Clemons) Gastrointestinal Gastrointestinal: Nausea & Vomiting, Diarrhea GI Remarks Denies abdominal pain (Jessica Clemons) Objective Data Data Vital Signs Date Time Temp Pulse Resp B/P (MAP) Pulse Ox O2 Delivery O2 Flow Rate FiO2 03/14/18 11:40 97.5 64 20 137/66 (89) 95 03/14/18 08:20 92 Nasal Cannula 3.00 03/14/18 07:30 97.9 66 20 121/60 (80) 95 03/14/18 07:15 92 Nasal Cannula 3.00 03/14/18 04:00 66 03/14/18 04:00 98.2 65 19 166/74 (104) 94 03/14/18 00:00 64 03/14/18 00:00 Nasal Cannula 3.00 03/14/18 00:00 98.5 58 18 146/67 (93) 98 03/13/18 22:15 Room Air 3.00 03/13/18 20:00 97.5 87 18 153/66 (95) 94 03/13/18 20:00 86 03/13/18 16:00 97.5 68 18 143/65 (91) 95 (Jessica Clemons) -: 03/13/18 0545 03/14/18 0906 Tubes & Lines: Vas-Cath Tubes & Lines Comment right chest wall (Jessica Clemons) Physical Exam General Appearance: No Acute Distress, Comfortable (Jessica Clemons) Eyes Eye Exam: Pupils Equal (Jessica Clemons) Pulmonary Resp Exam: Breath Sounds Equal, No Distress, Decreased Bases (Jessica Clemons) Cardiology CV Exam: Regular (Jessica Clemons) Gastrointestinal/Abdomen GI Exam: Soft, Non-Tender, Bowel Sounds Present (Jessica Clemons) Genitourinary Exam: Flank Non-Tender (Jessica Clemons) Integumentary Skin Exam: Clear, Warm, Dry (Jessica Clemons) Extremeties Extremities Exam: Trace Edema (Jessica Clemons) Neurologic Neuro Exam: Alert, Awake (Jessica Clemons) Psychiatric Psych Exam: Appropriate Responses (Jessica Clemons) Assessment/Plan Problem List: (1) Chronic kidney disease (CKD) stage G4/A1, severely decreased glomerular filtration rate (GFR) between 15-29 mL/min/1.73 square meter and albuminuria creatinine ratio less than 30 mg/g ICD Codes: N18.4 - Chronic kidney disease, stage 4 (severe) Plan: Patients baseline creatinine at 2.1-2.5 in October 2017 HD started on 03/04/19 Currently non oliguric Plan Lasix on hold Avoid nephrotoxins. No indication for dialysis today. Not ready for discharge with rising creatinine. Labs in AM if improvement possible discharge tomorrow (2) Diastolic CHF, acute ICD Codes: I50.31 - Acute diastolic (congestive) heart failure Plan: thoracentesis 1.4 liters removed. (3) Anemia ICD Codes: D64.9 - Anemia, unspecified Plan: Improved. (Jessica Clemons) Problem List: (1) Chronic kidney disease (CKD) stage G4/A1, severely decreased glomerular filtration rate (GFR) between 15-29 mL/min/1.73 square meter and albuminuria creatinine ratio less than 30 mg/g ICD Codes: N18.4 - Chronic kidney disease, stage 4 (severe) Plan: Patients baseline creatinine at 2.1-2.5 in October 2017 HD started on 03/04/19 Currently non oliguric Plan Lasix on hold Avoid nephrotoxins. No indication for dialysis today. Not ready for discharge with rising creatinine. Labs in AM if improvement possible discharge tomorrow. Patient seen and examined, agree with above. HD is on hold, if Creatinine is stable, possible D/C tomorrow. (2) Diastolic CHF, acute ICD Codes: I50.31 - Acute diastolic (congestive) heart failure Plan: thoracentesis 1.4 liters removed. (3) Anemia ICD Codes: D64.9 - Anemia, unspecified Plan: Improved. (Flavio Toro MD) Jessica Clemons Mar 14, 2018 15:32 Flavio Toro MD Mar 14, 2018 18:39
--- NOTE | 2018-03-14 20:35 | HHI.PR ---
Subjective Remarks 67 YOWF with COPD,CAD,Pl eff No Fever, cough or sp Weaned to 4LNC No new complaint worsening renal functions Objective Vital Signs Vital Signs Date Time Temp Pulse Resp B/P (MAP) Pulse Ox O2 Delivery O2 Flow Rate FiO2 03/14/18 20:21 96 Nasal Cannula 3.00 03/14/18 16:26 95 Nasal Cannula 3.00 03/14/18 16:00 97.7 62 20 130/59 (82) 95 03/14/18 16:00 67 03/14/18 12:00 67 03/14/18 11:40 97.5 64 20 137/66 (89) 95 03/14/18 08:20 92 Nasal Cannula 3.00 03/14/18 08:00 65 03/14/18 07:30 97.9 66 20 121/60 (80) 95 03/14/18 07:15 92 Nasal Cannula 3.00 03/14/18 04:00 66 03/14/18 04:00 98.2 65 19 166/74 (104) 94 03/14/18 00:00 64 03/14/18 00:00 Nasal Cannula 3.00 03/14/18 00:00 98.5 58 18 146/67 (93) 98 03/13/18 22:15 Room Air 3.00 I/O 03/13/18 03/13/18 03/13/18 03/14/18 03/14/18 03/14/18 06:59 14:59 22:59 06:59 14:59 22:59 Intake Total 355 ml 600 ml 120 ml 840 ml Output Total 700 ml 400 ml 800 ml Balance -345 ml 200 ml -680 ml 840 ml Intake Oral 355 ml 600 ml 120 ml 840 ml Output Urine Total 700 ml 400 ml 800 ml # Voids 1 # Bowel Movements 1 1 2 Result Diagram: 03/13/18 0545 03/14/18 0906 Objective Remarks GENERAL: MBMN WF mild sob SKIN: Warm and dry. HEAD: Normocephalic. EYES: No scleral icterus. No injection or drainage. NECK: Supple, trachea midline. No JVD or lymphadenopathy. CARDIOVASCULAR: Regular rate and rhythm without murmurs, gallops, or rubs. RESPIRATORY: Breath sounds equal bilaterally. No accessory muscle use. GASTROINTESTINAL: Abdomen soft, non-tender, nondistended. MUSCULOSKELETAL: No cyanosis, or edema. BACK: Nontender without obvious deformity. No CVA tenderness. A/P Assessment and Plan IMPRESSION: 1. Congestive heart failure. 2. Respiratory failure with hypoxia. 3. Chronic obstructive pulmonary disease. 4. Pleural effusion. 5. Coronary artery disease, status post recent stent placement. 6. History of Clostridium difficile colitis. 7. Chronic kidney disease. PLAN: Supplement 02 with 4LNC and wean 02 Aerosol nebs PO Steroids Cont Abx DC plans underway Monitor renal functions Aaron Blankenship MD Mar 14, 2018 20:35
[2018-03-14] MEDS: ALPRAZolam 0.5 MG TAB PO PRN (23:05)
[2018-03-14] MEDS: ATORVASTATIN 40 MG TAB PO SCH (23:05)
[2018-03-15] VITALS (7 sets, daily range): BP systolic 125–157; BP diastolic 59–87; PULSE 60–73; RESP 18–19; TEMP 97.1–98.7; O2SAT 92–96
[2018-03-15] MEDS: hydrALAZINE HCL 100 MG TAB PO SCH ×2 (06:16→13:09)
[2018-03-15] MEDS: ISOSORBIDE MONONITRATE 60 MG CR TAB (IMDUR) PO SCH (06:16)
[2018-03-15 07:16] LABS: AUTOMATED NEUTROPHIL # 5.2 TH/MM3 (1.8-7.7); BASOPHIL % 0.7 % (0.0-2.0); EOSINOPHIL # 0.1 TH/MM3 (0-0.4); EOSINOPHIL % 1.1 % (0.0-4.0); HEMATOCRIT 32.7 % (35.0-46.0); LYMPH % 14.1 % (9.0-44.0); MEAN CORPUSCULAR HEMOGLOBIN 30.3 PG (27.0-34.0); MEAN CORPUSCULAR HGB CONC 33.6 % (32.0-36.0); MEAN PLATELET VOLUME 8.3 FL (7.0-11.0); MONO % 9.3 % (0.0-8.0); MONOCYTE # 0.6 TH/MM3 (0-0.9); NEUT % 74.8 % (16.0-70.0); PLATELET COUNT 250 TH/MM3 (150-450); RED BLOOD COUNT 3.63 MIL/MM3 (4.00-5.30); RED CELL DISTRIBUTION WIDTH 16.4 % (11.6-17.2); WHITE BLOOD COUNT 6.9 TH/MM3 (4.0-11.0)
[2018-03-15] MEDS: SODIUM CHLORIDE 0.9% FLUSH 10 ML FLUSH IV FLUSH SCH (07:41)
[2018-03-15 07:56] LABS: BICARBONATE 31.1 MEQ/L (21.0-32.0); CALCIUM 8.5 MG/DL (8.5-10.1); CREATININE 2.93 MG/DL (0.50-1.00)
[2018-03-15] MEDS: TIOTROPIUM BROMIDE 18 MCG INH INH SCH (09:00)
[2018-03-15] MEDS: BUDESONIDE-FORMOTEROL 160/4.5 MCG INHALER INH SCH (09:00)
[2018-03-15] MEDS: FAMOTIDINE 20 MG TAB PO SCH (09:08)
[2018-03-15] MEDS: HEPARIN SODIUM - SQ 10,000 UNITS/ML VIAL SQ SCH (09:08)
[2018-03-15] MEDS: MUPIROCIN 2% OINT 1 APPLIC/GM SYR EACH NARE SCH (09:09)
[2018-03-15] MEDS: DOCUSATE SODIUM 50 MG/SENNA 8.6 MG TAB PO SCH (09:09)
[2018-03-15] MEDS: ASPIRIN 81 MG CHEW TAB CHEW SCH (09:09)
[2018-03-15] MEDS: DOXAZOSIN MESYLATE 4 MG TAB PO SCH (09:09)
[2018-03-15] MEDS: CARVEDILOL 12.5 MG TAB PO SCH (09:09)
[2018-03-15] MEDS: PRASUGREL 10 MG TAB PO SCH (09:09)
[2018-03-15] MEDS: NIFEdipine 30 MG SUSTAINED RELEASE TAB PO SCH (09:10)
[2018-03-15] MEDS: INSULIN ASPART SUPPLEMENTAL SCALE SQ SCH ×2 (09:10→12:26)
[2018-03-15] MEDS: VANCOMYCIN 500 MG VIAL (FOR ORAL USE ONLY) PO SCH ×2 (09:10→12:25)
[2018-03-15] MEDS: FERROUS SULFATE 325 MG (65 MG ELEMENTAL IRON) TAB PO SCH (09:10)
[2018-03-15] MEDS: INSULIN HUMAN NPH 1,000 UNITS/10 ML VIAL SQ SCH (09:11)
--- NOTE | 2018-03-15 09:26 | HHI.NPPN ---
Subjective History of Present Illness Patient is a 67 year old female with past medical history of Diabetes mellitus, hypertension, arthritis, hyperlipidemia, ischemic heart disease, diastolic CHF, and chronic kidney disease stage IV. Patient presented to ED with worsening shortness of breath since Wednesday and increased in bilateral lower extremity edema. She complains of weakness, fatigue, nausea, headache, dizziness, anxiety , and pain in lower extremity. Nephrology was consulted for chronic kidney disease with acute worsening and fluid overload. Patients creatine is found to be 3.06 with a GFR of 15 ml/min. Potassium level of 5.5. Patient baseline creatinine is has been running at 2.1 to 2.5 in 11/14. This is a known patient of Dr. Toro Additional Remarks Patient is resting comfortably this morning. No SOB or edema noted. (Jessica Clemons) Review of Systems Respiratory Respiratory Remarks denies SOB (Jessica Clemons) Cardiovascular Cardiac Remarks Denies CP (Jessica Clemons) Gastrointestinal Gastrointestinal: Nausea & Vomiting, Diarrhea GI Remarks Denies abdominal pain (Jessica Clemons) Objective Data Data Vital Signs Date Time Temp Pulse Resp B/P (MAP) Pulse Ox O2 Delivery O2 Flow Rate FiO2 03/15/18 04:00 98.7 66 18 157/87 (110) 95 03/15/18 04:00 Nasal Cannula 3.00 03/15/18 03:46 62 03/15/18 00:30 Nasal Cannula 3.00 03/15/18 00:30 97.1 66 18 149/71 (97) 95 03/15/18 00:05 60 03/14/18 21:08 97.6 57 17 147/70 (95) 97 03/14/18 21:08 Nasal Cannula 3.00 03/14/18 20:21 96 Nasal Cannula 3.00 03/14/18 19:46 61 03/14/18 16:26 95 Nasal Cannula 3.00 03/14/18 16:00 97.7 62 20 130/59 (82) 95 03/14/18 16:00 67 03/14/18 12:00 67 03/14/18 11:40 97.5 64 20 137/66 (89) 95 (Jessica Clemons) -: 03/15/18 0645 03/15/18 0645 Tubes & Lines: Vas-Cath Tubes & Lines Comment right chest wall (Jessica Clemons) Physical Exam General Appearance: No Acute Distress, Comfortable (Jessica Clemons) Eyes Eye Exam: Pupils Equal (Jessica Clemons) Pulmonary Resp Exam: Breath Sounds Equal, No Distress, Decreased Bases (Jessica Clemons) Cardiology CV Exam: Regular (Jessica Clemons) Gastrointestinal/Abdomen GI Exam: Soft, Non-Tender, Bowel Sounds Present (Jessica Clemons) Genitourinary Exam: Flank Non-Tender (Jessica Clemons) Integumentary Skin Exam: Clear, Warm, Dry (Jessica Clemons) Extremeties Extremities Exam: Trace Edema (Jessica Clemons) Neurologic Neuro Exam: Alert, Awake (Jessica Clemons) Psychiatric Psych Exam: Appropriate Responses (Jessica Clemons) Assessment/Plan Problem List: (1) Chronic kidney disease (CKD) stage G4/A1, severely decreased glomerular filtration rate (GFR) between 15-29 mL/min/1.73 square meter and albuminuria creatinine ratio less than 30 mg/g ICD Codes: N18.4 - Chronic kidney disease, stage 4 (severe) Plan: Patients baseline creatinine at 2.1-2.5 in October 2017 HD started on 03/04/19 Currently non oliguric Plan Continue to hold lasix Avoid nephrotoxins. Hemodialysis on hold. Creatinine is slightly more elevated at 2.93 from 2.86 potassium WNL. No SOB or edema noted. Patient can be discharged from a nephrology standpoint and will need to follow up in office in 1 week. Order for removal of vas cath.prior to discharge Patient instructed to call office with any increase in swelling or SOB and to take Bumex X 1 which she has at home otherwise follow up in 1 week. (2) Diastolic CHF, acute ICD Codes: I50.31 - Acute diastolic (congestive) heart failure Plan: thoracentesis 1.4 liters removed. (3) Anemia ICD Codes: D64.9 - Anemia, unspecified Plan: Improved. (Jessica Clemons) Problem List: (1) Chronic kidney disease (CKD) stage G4/A1, severely decreased glomerular filtration rate (GFR) between 15-29 mL/min/1.73 square meter and albuminuria creatinine ratio less than 30 mg/g ICD Codes: N18.4 - Chronic kidney disease, stage 4 (severe) Plan: Patients baseline creatinine at 2.1-2.5 in October 2017 HD started on 03/04/19 Currently non oliguric Plan Continue to hold lasix Avoid nephrotoxins. Hemodialysis on hold. Creatinine is slightly more elevated at 2.93 from 2.86 potassium WNL. No SOB or edema noted. Patient can be discharged from a nephrology standpoint and will need to follow up in office in 1 week. Order for removal of vas cath.prior to discharge Patient instructed to call office with any increase in swelling or SOB and to take Bumex X 1 which she has at home otherwise follow up in 1 week. Patient seen and examined, agree with above. For discharge, to follow as out patient in 1 week. (2) Diastolic CHF, acute ICD Codes: I50.31 - Acute diastolic (congestive) heart failure Plan: thoracentesis 1.4 liters removed. (3) Anemia ICD Codes: D64.9 - Anemia, unspecified Plan: Improved. (Flavio Toro MD) Jessica Clemons Mar 15, 2018 09:26 Flavio Toro MD Mar 17, 2018 09:48
== END 2018-03-15 14:36 | disposition home health service (06) | DRG 291 ==
LOC: NEPE 02:55 → NEDA 04:30 → HIMW 05:50 → HCIS 03-09 01:54 → N04B 03-10 12:29 → N04A 03-10 13:23 → N04B 03-10 16:22 → N04A 03-10 16:23
PROVIDERS: ADMIT Hospitalist; ATTEND Hospitalist
PROC: 30233N1 Transfusion of Nonautologous Red Blood Cells into Peripheral Vein, Percutaneous Approach (ICD-10-PCS; principal; 2018-03-03)
PROC: 0W9B3ZX Drainage of Left Pleural Cavity, Percutaneous Approach, Diagnostic (ICD-10-PCS; 2018-03-03)
PROC: 5A1D70Z Performance of Urinary Filtration, Intermittent, Less than 6 Hours Per Day (ICD-10-PCS; 2018-03-04)
PROC: 02HV33Z Insertion of Infusion Device into Superior Vena Cava, Percutaneous Approach (ICD-10-PCS; 2018-03-04)
DX: I13.0 Hypertensive heart and chronic kidney disease with heart failure and stage 1 through stage 4 chronic kidney disease, or unspecified chronic kidney disease (principal); I50.33 Acute on chronic diastolic (congestive) heart failure; J96.21 Acute and chronic respiratory failure with hypoxia; N17.9 Acute kidney failure, unspecified; A04.71 Enterocolitis due to Clostridium difficile, recurrent; E87.2 Acidosis; J91.8 Pleural effusion in other conditions classified elsewhere; E11.22 Type 2 diabetes mellitus with diabetic chronic kidney disease; E11.40 Type 2 diabetes mellitus with diabetic neuropathy, unspecified; I48.0 Paroxysmal atrial fibrillation; E46 Unspecified protein-calorie malnutrition; J44.1 Chronic obstructive pulmonary disease with (acute) exacerbation; N18.4 Chronic kidney disease, stage 4 (severe); E87.5 Hyperkalemia; E11.319 Type 2 diabetes mellitus with unspecified diabetic retinopathy without macular edema; E11.51 Type 2 diabetes mellitus with diabetic peripheral angiopathy without gangrene; Z99.81 Dependence on supplemental oxygen; E11.65 Type 2 diabetes mellitus with hyperglycemia; D64.9 Anemia, unspecified; M19.90 Unspecified osteoarthritis, unspecified site; E78.5 Hyperlipidemia, unspecified; I25.10 Atherosclerotic heart disease of native coronary artery without angina pectoris; K44.9 Diaphragmatic hernia without obstruction or gangrene; F41.9 Anxiety disorder, unspecified; G89.4 Chronic pain syndrome; Z95.5 Presence of coronary angioplasty implant and graft; Z87.891 Personal history of nicotine dependence; I25.2 Old myocardial infarction; Z79.4 Long term (current) use of insulin; Z79.82 Long term (current) use of aspirin
CPT/HCPCS: 32554; 36430; 36556; 36600; 71045; 76937; 80048; 80053; 80069; 80074; 80076; 82150; 82550; 82552; 82805; 82945; 82948; 83036; 83615; 83735; 83880; 83986; 84100; 84132; 84134; 84157; 84439; 84443; 84484; 85025; 85027; 85610; 85730; 86850; 86900; 86901; 86920; 87015; 87070; 87102; 87116; 87205; 87206; 87493; 87641; 88112; 89051; 90935; 93005; 94150; 94640; 94664; 94667; 94668; 96374; 96375; J0360; J0461; J0610; J0692; J1205; J1580; J1644; J1815; J1940; J2060; J2270; J2405; J2920; J2930; J7030; J7050; J7070; J7512; P9016; P9047; Q4081

== ENCOUNTER 2018-04-09 17:19 | Inpatient (IN) | payer MEDICARE, BC ==
[~2018-04-09] VITALS: Ht 162.6 cm; Wt 71.2 kg
[2018-04-09] VITALS (13 sets, daily range): BP systolic 194–220; BP diastolic 76–94; PULSE 76–84; RESP 22–26; TEMP 97.4–98.6; O2SAT 88–93
[~2018-04-09 17:19] MED LIST changes: +Budeson-Formot 160-4.5 Mcg Inh INH; -FURO40TA PO; +VANC500I3 PO; -[UNRECOGNIZED DRUG - CODE] PO
[2018-04-09] MEDS: RESP: ALBUTEROL 2.5 MG/IPRATROPIUM 0.5 MG NEB (SCH) INH ×2 (17:36→17:37)
[2018-04-09] MEDS ORDERED: FUROSEMIDE 40 MG/4 ML VIAL IVP ONE (17:45)
[2018-04-09] MEDS ORDERED: SODIUM CHLORIDE 0.9% FLUSH 10 ML FLUSH IVF PRN (17:45)
[2018-04-09 18:04] LABS: AUTOMATED NEUTROPHIL # 2.8 TH/MM3 (1.8-7.7); EOSINOPHIL # 0.1 TH/MM3 (0-0.4); EOSINOPHIL % 1.6 % (0.0-4.0); HEMATOCRIT 23.3 % (35.0-46.0); HEMOGLOBIN 7.7 GM/DL (11.6-15.3); LYMPHOCYTE # 1.1 TH/MM3 (1.0-4.8); MEAN CELL VOLUME 94.4 FL (80.0-100.0); MEAN CORPUSCULAR HEMOGLOBIN 31.2 PG (27.0-34.0); MEAN PLATELET VOLUME 8.4 FL (7.0-11.0); MONO % 6.3 % (0.0-8.0); MONOCYTE # 0.3 TH/MM3 (0-0.9); NEUT % 65.1 % (16.0-70.0); PLATELET COUNT 267 TH/MM3 (150-450); RED BLOOD COUNT 2.47 MIL/MM3 (4.00-5.30); RED CELL DISTRIBUTION WIDTH 17.3 % (11.6-17.2); WHITE BLOOD COUNT 4.2 TH/MM3 (4.0-11.0)
--- NOTE | 2018-04-09 18:08 | RADRPT ---
EXAM DATE/TIME: 04/09/2018 17:45 [facility] COMPARISON: CHEST SINGLE AP, March 09, 2018, 4:13. INDICATIONS : Shortness of breath. MEDICAL HISTORY : Chronic obstructive pulmonary disease. Hypertension AFIB. SURGICAL HISTORY : Stent. ENCOUNTER: Initial ACUITY: 2 weeks PAIN SCORE: 0/10 LOCATION: chest FINDINGS: There is continued opacification of the left lower lung which appears to be about the same compared t o the prior study. There is a small to moderate right-sided pleural effusion. Heart size is stable. T here is increased interstitial markings bilaterally suggestive of pulmonary edema. Compared to the pr ior study there has been no significant changes. CONCLUSION: 1. Increased interstitial markings bilaterally suggesting pulmonary edema. 2. There is continued consolidation left lower lung suggestive of infiltrate and effusion. 3. There is a small to moderate right-sided effusion David Lezama MD on April 09, 2018 at 18:04 Board Certified Radiologist. This report was verified electronically.
[2018-04-09 18:15] LABS: PROTHROMBIN TIME - PATIENT 10.3 SEC (9.8-11.6)
[2018-04-09 18:16] LABS: BILIRUBIN, URINE NEG (NEG); BLOOD, URINE TRACE (NEG); GLUCOSE,URINE 1000 mg/dL (NEG); KETONE, URINE 10 mg/dL (NEG); NITRITE,URINE NEG (NEG); PH, URINE 6.5 (5.0-8.5); SQUAMOUS EPITHELIAL CELL URINE <1 /hpf (0-5); URINE COLOR LIGHT-YELLOW (YELLW/STRAW); URINE LEUKOCYTE ESTERASE NEG (NEG)
--- NOTE | 2018-04-09 18:19 | PD ---
HPI Chief Complaint: Respiratory Distress Time Seen by Provider: 17:31 Travel History International Travel<30 days: No Contact w/Intl Traveler<30days: No Traveled to known affect area: No History of Present Illness HPI 67-year-old female with history of CHF, COPD, and recent left-sided effusion, is brought into the emergency department with increasing shortness of breath and hypoxemia. Patient states she has been unable to use her nebulizer at home as her dog chewed up her nebulizer mask and tubing. She denies significant pain, chest pain, or fever or chills. Patient states she was weak this morning and fell while on the commode injuring her left forearm with a small abrasion. O2 sats on 3 L are approximately 85%. Patient was given DuoNeb , and 125 mg Solu-Medrol in route. Patient is allergic to propoxyphene PFSH Past Medical History Hx Anticoagulant Therapy: Yes (ASPIRIN ) Anemia: Yes (iron deficiency) Arthritis: Yes Asthma: Yes Anxiety: No Depression: No Heart Rhythm Problems: No Cancer: No Cardiovascular Problems: Yes (2 PA, CHF ) High Cholesterol: Yes Chemotherapy: No Chest Pain: No Congestive Heart Failure: Yes COPD: Yes Cerebrovascular Accident: No Coronary Artery Disease: Yes Diabetes: Yes (TYPE 2 IDDM) Patient Takes Glucophage: No Diminished Hearing: No Endocrine: No Gastrointestinal Disorders: Yes (c-diff) GERD: No Genitourinary: No Headaches: No Hepatitis: No Hiatal Hernia: Yes Hypertension: Yes Immune Disorder: No Implanted Vascular Access Dvce: Yes Kidney Stones: No Musculoskeletal: Yes Neurologic: Yes Psychiatric: No Reproductive: Yes Respiratory: Yes (COPD) Immunizations Current: Yes Migraines: Yes Myocardial Infarction: Yes Radiation Therapy: No Renal Failure: No Seizures: No Sleep Apnea: No Thyroid Disease: No Ulcer: No Tetanus Vaccination: < 5 Years Influenza Vaccination: Yes ?: Not Menopausal: Yes : 1 Para: 1 Miscarriage: 0 Past Surgical History Abdominal Surgery: Yes (APPENDECTOMY) AICD: No Appendectomy: Yes Body Medical Devices: CARDIAC STENTS X3 Cardiac Surgery: Yes (STENT PLACEMENT) Section: Yes Coronary Stent: Yes (3 stents) Ear Surgery: No Endocrine Surgery: No Eye Surgery: No Genitourinary Surgery: No Gynecologic Surgery: Yes Hysterectomy: Yes Neurologic Surgery: No Oral Surgery: Yes (TONSILS) Pacemaker: No Thoracic Surgery: No Tonsillectomy: Yes (ADENOIDS) Other Surgery: Yes (LEFT WRIST GANGLION CYST) Social History Alcohol Use: No Tobacco Use: No (QUIT 2001) Substance Use: No Allergies-Medications (Allergen,Severity, Reaction): Coded Allergies: propoxyphene (Verified Allergy, Mild, RASH, 03/03/18) Reported Meds & Prescriptions Reported Meds & Active Scripts Active Vancomycin Inj (Vancomycin HCl) 500 Mg Inj 125 Mg PO QID 12 Days use injectable form of vanco by mouth [Budeson-Formot 160-4.5 Mcg Inh] 60 PUFF Aero 2 Puff INH Q12HR 30 Days Hydrocodone-Acetaminophen 5-325 mg Tab 1 Tab PO Q6H PRN Ventolin Hfa 18 GM Inh (Albuterol Sulfate) 90 Mcg/Act Aer 2 Puff INH Q4-6H PRN Atrovent HFA 12.9 GM Inh (Ipratropium [place]) 17 Mcg/Actuation Aer 2 Puff INH Q6HR PRN Levemir Inj (Insulin Detemir) 1,000 unit/ 10 ML Vial 5 Units SQ Q12HR Do not mix with any other Insulin. Nifedipine ER 24 HR (Nifedipine) 30 Mg Tab 30 Mg PO Q12HR Aldactone (Spironolactone) 25 Mg Tab 12.5 Mg PO DAILY Coreg (Carvedilol) 6.25 Mg Tab 6.25 Mg PO Q12HR Cardura (Doxazosin Mesylate) 2 Mg Tab 2 Mg PO DAILY Cardura (Doxazosin Mesylate) 2 Mg Tab 2 Mg PO DAILY Hydralazine HCl 50 Mg Tablet 75 Mg PO Q8HR Ferosul (Ferrous Sulfate) 325 Mg (65 Mg Iron) Tablet 325 Mg PO BID Catapres (Clonidine) 0.1 Mg Tab 0.1 Mg PO Q6H PRN Atorvastatin (Atorvastatin Calcium) 40 Mg Tab 40 Mg PO HS Duoneb (Ipratropium-Albuterol Neb) 0.5-2.5 Mg/3 Ml Neb 1 Nebule INH Q4HR NEB Isosorbide Mononitrate ER (Isosorbide Mononitrate) 60 Mg Tab 60 Mg PO DAILY Novolog Inj (Insulin Aspart) 100 Unit/Ml Inj 1 Units SQ ACHS SLIDING SCALE 30 Days Sliding Scale As Directed.150-199 1 Unit; 200-249 3 units; 250-299 5 Units; 300-349 7 Units; Reported Tylenol (Acetaminophen) 325 Mg Tab 325 Mg PO Q4H PRN Effient (Prasugrel) 10 Mg Tab 10 Mg PO DAILY Aspirin 81 Mg Chew 81 Mg CHEW DAILY Review of Systems Except as stated in HPI: all other systems reviewed are Neg General / Constitutional: No: Fever Eyes: No: Visual changes HENT: No: Headaches, Vertigo, Lightheadedness, Sore Throat, Rhinitis, Rhinorrhea Cardiovascular: Positive: Dyspnea on exertion, Edema, No: Chest Pain or Discomfort, Palpitations, Irregular Rhythm, Tachycardia, Syncope, Claudication Respiratory: Positive: Shortness of Breath, No: Cough, Wheezing, Sneezing Gastrointestinal: No: Nausea, Vomiting, Diarrhea, Abdominal Pain Genitourinary: No: Dysuria Musculoskeletal: No: Pain Skin: Positive Lesions (Abrasions to the left arm), No Rash Neurologic: No: Weakness Psychiatric: No: Depression Endocrine: No: Polydipsia Hematologic/Lymphatic: No: Easy Bruising Physical Exam Narrative GENERAL: Patient appears in mild to moderate respiratory distress. She is noted to have pursed lip breathing. She speaks in very short sentences. SKIN: Warm and dry. Increased pallor. Decreased turgor. HEAD: Atraumatic. Normocephalic. EYES: Pupils equal and round. No scleral icterus. No injection or drainage. ENT: No nasal bleeding or discharge. Mucous membranes pink and moist. Pharynx is clear. Airways patent. NECK: Trachea midline. Supple and nontender. CARDIOVASCULAR: Regular rate and rhythm. No murmurs gallops or rubs appreciated RESPIRATORY: No accessory muscle use. Diffuse wheezes and crackles throughout to auscultation. Breath sounds equal bilaterally. GASTROINTESTINAL: Abdomen soft, non-tender, nondistended. Hepatic and splenic margins not palpable. MUSCULOSKELETAL: Extremities without clubbing, cyanosis, or edema. No obvious deformities. NEUROLOGICAL: Awake and alert. No obvious cranial nerve deficits. Motor grossly within normal limits. Five out of 5 muscle strength in the arms and legs. Normal speech. PSYCHIATRIC: Appropriate mood and affect; insight and judgment normal. Data Data Last Documented VS Vital Signs Date Time Temp Pulse Resp B/P (MAP) Pulse Ox O2 Delivery O2 Flow Rate FiO2 04/09/18 19:04 79 22 210/81 (124) 92 Nasal Cannula 5.00 04/09/18 17:36 97.6 Orders Orders Complete Blood Count With Diff (04/09/18 17:31) Comprehensive Metabolic Panel (04/09/18:31) B-Type Natriuretic Peptide (04/09/18:31) Act Partial Throm Time (Ptt) (04/09/18 17:31) Prothrombin Time / Inr (Pt) (04/09/18 17:31) Magnesium (Mg) (04/09/18 17:31) Ckmb (Isoenzyme) Profile (04/09/18:) Troponin I (04/09/18:31) Urinalysis - C+S If Indicated (04/09/18 17:31) Iv Access Insert/Monitor (04/09/18:31) Electrocardiogram (04/09/18:) Ecg Monitoring (04/09/18:31) Oximetry (04/09/18:31) Oxygen Administration (04/09/18:31) Chest, Single Ap (04/09/18 17:31) Sodium Chloride 0.9% Flush (Ns Flush) (04/09/18 17:45) Furosemide Inj (Lasix Inj) (04/09/18 17:45) Albuterol-Ipratropium Neb (Duoneb Neb) (04/09/18 17:45) Urinary Catheter Insert/Apply (04/09/18 17:51) CKMB (04/09/18 17:36) CKMB% (04/09/18 17:36) Insulin Human Regular Inj (Novolin R Inj (04/09/18 19:15) Calcium Chloride Inj (Calcium Chloride I (04/09/18 19:15) Sodium Polysty Sulfate Liq (Kayexalate L (04/09/18 19:15) Admit Order (Ed Use Only) (04/09/18 19:32) Labs Laboratory Tests Test 04/09/18 17:36 04/09/18 17:58 04/09/18 18:33 White Blood Count 4.2 TH/MM3 Red Blood Count 2.47 MIL/MM3 Hemoglobin 7.7 GM/DL Hematocrit 23.3 % Mean Corpuscular Volume 94.4 FL Mean Corpuscular Hemoglobin 31.2 PG Mean Corpuscular Hemoglobin Concent 33.0 % Red Cell Distribution Width 17.3 % Platelet Count 267 TH/MM3 Mean Platelet Volume 8.4 FL Neutrophils (%) (Auto) 65.1 % Lymphocytes (%) (Auto) 26.0 % Monocytes (%) (Auto) 6.3 % Eosinophils (%) (Auto) 1.6 % Basophils (%) (Auto) 1.0 % Neutrophils # (Auto) 2.8 TH/MM3 Lymphocytes # (Auto) 1.1 TH/MM3 Monocytes # (Auto) 0.3 TH/MM3 Eosinophils # (Auto) 0.1 TH/MM3 Basophils # (Auto) 0.0 TH/MM3 CBC Comment DIFF FINAL Differential Comment Prothrombin Time 10.3 SEC Prothromb Time International Ratio 1.0 RATIO Activated Partial Thromboplast Time 21.2 SEC B-Type Natriuretic Peptide 782 PG/ML Urine Color LIGHT-YELLOW Urine Turbidity CLEAR Urine pH 6.5 Urine Specific Bailey 1.011 Urine Protein 300 mg/dL Urine Glucose (UA) 1000 mg/dL Urine Ketones 10 mg/dL Urine Occult Blood TRACE Urine Nitrite NEG Urine Bilirubin NEG Urine Urobilinogen LESS THAN 2.0 MG/DL Urine Leukocyte Esterase NEG Urine RBC 2 /hpf Urine WBC 1 /hpf Urine Squamous Epithelial Cells <1 /hpf Microscopic Urinalysis Comment CULT NOT INDICATED Blood Urea Nitrogen 79 MG/DL Creatinine 2.86 MG/DL Random Glucose 303 MG/DL Total Protein 6.7 GM/DL Albumin 2.7 GM/DL Calcium Level 8.1 MG/DL Magnesium Level 2.3 MG/DL Alkaline Phosphatase 213 U/L Aspartate Amino Transf (AST/SGOT) 93 U/L Alanine Aminotransferase (ALT/SGPT) 76 U/L Total Bilirubin 0.4 MG/DL Sodium Level 143 MEQ/L Potassium Level 6.4 MEQ/L Chloride Level 111 MEQ/L Carbon Dioxide Level 19.7 MEQ/L Anion Gap 12 MEQ/L Estimat Glomerular Filtration Rate 16 ML/MIN Total Creatine Kinase 124 U/L Creatine Kinase MB 4.7 NG/ML Troponin I LESS THAN 0.02 NG/ML [facility] Medical Decision Making Medical Screen Exam Complete: Yes Emergency Medical Condition: Yes Medical Record Reviewed: Yes Differential Diagnosis Hypoxia. CHF. COPD with exacerbation. Anemia. Cardiac syndrome. [place] light imbalance. Abrasion left arm. Narrative Course Patient appears in mild respiratory distress but otherwise medically stable. Labs ordered including CBC, CMP, proBNP, cardiac panel, and urinalysis. Patient is given 40 mg Lasix IV as well as DuoNeb 3. Chest x-ray is ordered. EKG is performed showing sinus rhythm with occasional Patient is kept on nasal cannula oxygen at 3 L. Chest x-ray shows: FINDINGS: There is continued opacification of the left lower lung which appears to be about the same compared to the prior study. There is a small to moderate right- sided pleural effusion. Heart size is stable. There is increased interstitial markings bilaterally suggestive of pulmonary edema. Compared to the prior study there has been no significant changes. CBC significant for hemoglobin of 7.7, hematocrit 23.3. This shows a worsening in her anemia from previous with a hemoglobin of 11.0 on 03/15/2018. Coagulation studies today are normal. Chemistries are significantly abnormal with a potassium of 6.4, chloride of 111 , carbon dioxide is low at 19.7. BUN is 79, creatinine is 2.86. GFR 16, glucose is 303, calcium is 8.1. AST is 93, ALT 76, alk phos is 213, CK-MB is elevated at 4.7. BNP is 782. Albumin is 2.7 All these numbers are significantly elevated from her previous labs on 03/15/2018 , except for the creatinine which is stable compared to previous. Troponin is less than 0.02. Patient is reassessed after DuoNeb and Lasix and feels improved overall. Her O2 sat is improved to 93% on 3 L nasal cannula. Patient will be given 8 units insulin, 1 g calcium, and 1 dose of Kayexalate for her hyperkalemia. Calls placed to the hospitalist for admission. Diagnosis Primary Impression: Hyperkalemia Additional Impressions: Hypoxemia CHF (congestive heart failure) Qualified Codes: I50.9 - Heart failure, unspecified COPD exacerbation Anemia Qualified Codes: D64.9 - Anemia, unspecified Abrasion of left arm Qualified Codes: S40.812A - Abrasion of left upper arm, initial encounter Admitting Information Admitting Physician Requests: Admit Condition: Stable Ajit Cerrato April 09, 2018 18:19
[2018-04-09 18:20] LABS: ALT (GPT) 76 U/L (10-53)
[2018-04-09 18:23] LABS: ALKALINE PHOSPHATASE 213 U/L (45-117); TOTAL BILIRUBIN ADULT 0.4 MG/DL (0.2-1.0); TOTAL PROTEIN 6.7 GM/DL (6.4-8.2); TROPONIN I LESS THAN 0.02 NG/ML (0.02-0.05)
[2018-04-09 19:02] LABS: ALBUMIN 2.7 GM/DL (3.4-5.0); AST (GOT) 93 U/L (15-37); BICARBONATE 19.7 MEQ/L (21.0-32.0); BLOOD UREA NITROGEN 79 MG/DL (7-18); CALCIUM 8.1 MG/DL (8.5-10.1); CHLORIDE 111 MEQ/L (98-107); CREATININE 2.86 MG/DL (0.50-1.00); GLOMERULAR FILTRATION RATE 16 ML/MIN (>89); GLUCOSE,RANDOM 303 MG/DL (74-106); MAGNESIUM 2.3 MG/DL (1.5-2.5); SODIUM (NA) 143 MEQ/L (136-145)
[2018-04-09] MEDS ORDERED: SODIUM POLYSTYRENE SULFONATE SUSP 15 GM/60 ML CUP PO ONE (19:15)
[2018-04-09] MEDS ORDERED: INSULIN HUMAN REGULAR 1,000 UNITS/10 ML VIAL IV PUSH ONE (19:15)
[2018-04-09] MEDS ORDERED: CALCIUM CHLORIDE 10% SOLN 1 GRAM/10 ML SYR IV PUSH ONE (19:15)
--- NOTE | 2018-04-09 19:38 | HHI.HP ---
[facility] Ilsa Treviño, [employer] Admission Diagnosis Hypoxia/CHF/COPD Exacerbation/Hyperkalemia Diagnoses: (1) CHF (congestive heart failure) Diagnosis: Principal (2) COPD (chronic obstructive pulmonary disease) Diagnosis: Principal (3) Hypoxia Diagnosis: Principal (4) Hyperkalemia Diagnosis: Principal (5) Anemia Diagnosis: Principal (6) DM (diabetes mellitus) Diagnosis: Principal Travel History International Travel<30 Days: No Contact w/Intl Traveler <30 Da: No Traveled to Known Affected Are: No History of Present Illness This is a 67-year-old female with a PMH of HTN, Hyperlipidemia, CHF (Echo 2017 w/ EF 55-60%), COPD, CAD and DM who was brought to the ER by EMS secondary to severe SOB x2-3 days. Unable to use home nebulizer, because "my dog ate my machine". Today w/ severe SOB, O2 sat 85% on RA upon arrival, s/p Solu-Medrol and DuoNeb en route w/ some improvement. Denies fever, chills, cough or chest pain. On arrival, BP 209/87, HR 77, O2 sat 88% on RA, Afebrile. WBC normal. Hemoglobin 7.7, previously 11.0 on 03/15/2018. K+ 6.4. Creatinine 2.86, previously 2.93 on 03/15/2018. Troponin negative. INR 1.0. CXR with increased interstitial markings bilaterally suggesting pulmonary edema, continue consolidation left lower lung suggestive of infiltrate or effusion, small to moderate right-sided effusion. S/p Lasix/DuoNeb in ER w/ improvement. Review of Systems Except as stated in HPI: all other systems reviewed are Neg ROS: 14 point review of systems otherwise negative. Past Family Social History Past Medical History PMH: HTN, Hyperlipidemia, CHF (Echo 01/03/2018 w/ EF 55-60%), COPD, CAD and DM Past Surgical History PAST SURGICAL HISTORY: Appendectomy, Cardiac Stent, , Tonsillectomy, Left Ganglion Cyst Allergies: Coded Allergies: propoxyphene (Verified Allergy, Mild, RASH, 03/03/18) Family History PAST FAMILY HISTORY: Reviewed. No h/o DM or CAD Social History PAST SOCIAL HISTORY: Negative for alcohol, tobacco or drugs Physical Exam Vital Signs Vital Signs Date Time Temp Pulse Resp B/P (MAP) Pulse Ox O2 Delivery O2 Flow Rate FiO2 04/09/18 19:04 79 22 210/81 (124) 92 Nasal Cannula 5.00 04/09/18 18:25 76 22 220/93 (135) 89 Nasal Cannula 4.00 04/09/18 17:36 88 Nasal Cannula 4.00 04/09/18 17:36 77 22 88 Nasal Cannula 4.00 04/09/18 17:36 88 Nasal Cannula 4.00 04/09/18 17:36 97.6 84 22 209/87 (127) 88 Nasal Cannula 4.00 04/09/18 17:23 97.4 80 22 209/87 (127) 88 Physical Exam PE: GENERAL: Pleasant middle-aged white female in no acute distress, resting comfortably. HEENT: PERRLA, EOMI. No scleral icterus or conjunctival pallor. No lid lag or facial droop. CARDIOVASCULAR: Regular rate and rhythm. No obvious murmurs to auscultation. No chest tenderness to palpation. RESPIRATORY: No obvious rhonchi, occasional wheezing. Diminished at bases bilaterally. GASTROINTESTINAL: Abdomen soft, non-tender, nondistended. BS normal. MUSCULOSKELETAL: Extremities without clubbing, cyanosis, or edema. No obvious deformities. NEUROLOGICAL: Awake, alert and oriented x4. No focal neurologic deficits. Moving both upper and lower extremities spontaneously. Laboratory Laboratory Tests Test 04/09/18 17:36 04/09/18 17:58 04/09/18 18:33 White Blood Count 4.2 Red Blood Count 2.47 Hemoglobin 7.7 Hematocrit 23.3 Mean Corpuscular Volume 94.4 Mean Corpuscular Hemoglobin 31.2 Mean Corpuscular Hemoglobin Concent 33.0 Red Cell Distribution Width 17.3 Platelet Count 267 Mean Platelet Volume 8.4 Neutrophils (%) (Auto) 65.1 Lymphocytes (%) (Auto) 26.0 Monocytes (%) (Auto) 6.3 Eosinophils (%) (Auto) 1.6 Basophils (%) (Auto) 1.0 Neutrophils # (Auto) 2.8 Lymphocytes # (Auto) 1.1 Monocytes # (Auto) 0.3 Eosinophils # (Auto) 0.1 Basophils # (Auto) 0.0 CBC Comment DIFF FINAL Differential Comment Prothrombin Time 10.3 Prothromb Time International Ratio 1.0 Activated Partial Thromboplast Time 21.2 B-Type Natriuretic Peptide 782 Urine Color LIGHT-YELLOW Urine Turbidity CLEAR Urine pH 6.5 Urine Specific [place] 1.011 Urine Protein 300 Urine Glucose (UA) 1000 Urine Ketones 10 Urine Occult Blood TRACE Urine Nitrite NEG Urine Bilirubin NEG Urine Urobilinogen LESS THAN 2.0 Urine Leukocyte Esterase NEG Urine RBC 2 Urine WBC 1 Urine Squamous Epithelial Cells <1 Microscopic Urinalysis Comment CULT NOT INDICATED Blood Urea Nitrogen 79 Creatinine 2.86 Random Glucose 303 Total Protein 6.7 Albumin 2.7 Calcium Level 8.1 Magnesium Level 2.3 Alkaline Phosphatase 213 Aspartate Amino Transf (AST/SGOT) 93 Alanine Aminotransferase (ALT/SGPT) 76 Total Bilirubin 0.4 Sodium Level 143 Potassium Level 6.4 Chloride Level 111 Carbon Dioxide Level 19.7 Anion Gap 12 Estimat Glomerular Filtration Rate 16 Total Creatine Kinase 124 Creatine Kinase MB 4.7 Troponin I LESS THAN 0.02 Result Diagram: 04/09/18 1736 04/09/18 1833 Caprini VTE Risk Assessment Caprini VTE Risk Assessment: No/Low Risk (score <= 1) Caprini Risk Assessment Model Point Value = 1 Point Value = 2 Point Value = 3 Point Value = 5 Age 41-60 Minor surgery BMI > 25 kg/m2 Swollen legs Varicose veins or History of unexplained or recurrent spontaneous Oral contraceptives or hormone replacement Sepsis (< 1 month) Serious lung disease, including pneumonia (< 1 month) Abnormal pulmonary function Acute myocardial infarction Congestive heart failure (< 1 month) History of inflammatory bowel disease Medical patient at bed rest Age 61-74 Arthroscopic surgery Major open surgery (> 45 min) Laparoscopic surgery (> 45 min) Malignancy Confined to bed (> 72 hours) Immobilizing plaster cast Central venous access Age >= 75 History of VTE Family history of VTE Factor V Leiden Prothrombin 24258G Lupus anticoagulant Anticardiolipin antibodies Elevated serum homocysteine Heparin-induced thrombocytopenia Other congenital or acquired thrombophilia Stroke (< 1 month) Elective arthroplasty Hip, pelvis, or leg fracture Acute spinal cord injury (< 1 month) Prophylaxis Regimen Total Risk Factor Score Risk Level Prophylaxis Regimen 0-1 Low Early ambulation 2 Moderate Order ONE of the following: *Sequential Compression Device (SCD) *Heparin 5000 units SQ BID 3-4 Higher Order ONE of the following medications: *Heparin 5000 units SQ TID *Enoxaparin/Lovenox 40 mg SQ daily (WT < 150 kg, CrCl > 30 mL/min) *Enoxaparin/Lovenox 30 mg SQ daily (WT < 150 kg, CrCl > 10-29 mL/min) *Enoxaparin/Lovenox 30 mg SQ BID (WT < 150 kg, CrCl > 30 mL/min) AND/OR *Sequential Compression Device (SCD) 5 or more Highest Order ONE of the following medications: *Heparin 5000 units SQ TID (Preferred with Epidurals) *Enoxaparin/Lovenox 40 mg SQ daily (WT < 150 kg, CrCl > 30 mL/min) *Enoxaparin/Lovenox 30 mg SQ daily (WT < 150 kg, CrCl > 10-29 mL/min) *Enoxaparin/Lovenox 30 mg SQ BID (WT < 150 kg, CrCl > 30 mL/min) AND *Sequential Compression Device (SCD) Assessment and Plan Problem List: (1) COPD (chronic obstructive pulmonary disease) ICD Code: J44.9 - Chronic obstructive pulmonary disease, unspecified (2) CHF (congestive heart failure) ICD Code: I50.9 - Heart failure, unspecified (3) Hypoxia ICD Code: R09.02 - Hypoxemia (4) Hyperkalemia ICD Code: E87.5 - Hyperkalemia (5) Anemia ICD Code: D64.9 - Anemia, unspecified (6) DM (diabetes mellitus) ICD Code: E11.9 - Type 2 diabetes mellitus without complications Assessment and Plan A/P: 1. COPD: Chronic Respiratory Failure w/ Acute Exacerbation, +wheezing/ respiratory distress, s/p Solu-Medrol w/ improvement. Continue Solu-Medrol, Symbicort, DuoNeb, Mucinex. Pt home Nebulizer broken will need replacement on return home. 2. Hypoxia: O2 sat 85% on 3L NC, significant respiratory distress on arrival, O2 sat 88-90% on 4-5L NC while in ER, will check STAT ABG, monitor O2, O2 as needed. 3. CHF: Acute on Chronic. Diastolic. Echo 01/03/18 w/ EF 55-60%, CXR w/ interstitial edema, h/o pleural effusion LLL w/ continued effusion, small to moderate right effusion, s/p Lasix in ER, will continue w/ diuresis Lasix 40mg IV bid, monitor I/O. 4. Hyperkalemia: K+ 6.4, s/p Ca/Insulin/Kayexalate in ER, repeat K+ tonight, additional treatment as needed. Telemetry. 5. Anemia: Hgb 7.7, previously 11.0 on 03/15/18, Type & Screen, check repeat Hgb/Hct, transfuse as needed for Hgb <7 or if hemodynamically unstable. 6. DM: Sliding scale w/ Accu-Cheks, resume home Levemir. 7. DVT Prophylaxis: SCD/Teds 8. Social work for d/c planning as needed 9. Case discussed w/ ER physician at length, labs/records/imaging reviewed by la Physician Certification 2 Midnight Certification Type: Admission for Inpatient Services Order for Inpatient Services The services are ordered in accordance with Medicare regulations or non- Medicare payer requirements, as applicable. In the case of services not specified as inpatient-only, they are appropriately provided as inpatient services in accordance with the 2-midnight benchmark. Estimated LOS (days): 2 days is the estimated time the patient will need to remain in the hospital, assuming treatment plan goals are met and no additional complications. Post-Hospital Plan: Not yet determined Problem Qualifiers (1) CHF (congestive heart failure): Qualified Codes: I50.9 - Heart failure, unspecified (2) Anemia: Qualified Codes: D64.9 - Anemia, unspecified Nataly Marcus MD April 09, 2018 19:37
[2018-04-09] MEDS ORDERED: ACETAMINOPHEN 325 MG TAB PO PRN (19:45)
[2018-04-09] MEDS ORDERED: SODIUM CHLORIDE 0.9% FLUSH 10 ML FLUSH IV FLUSH PRN (19:45)
[2018-04-09] MEDS ORDERED: GLUCAGON 1 MG/ML VIAL OTHER PRN (19:45)
[2018-04-09] MEDS ORDERED: SENNOSIDES 8.6 MG TAB PO PRN (19:45)
[2018-04-09] MEDS ORDERED: BISACODYL 10 MG SUPP RECTAL PRN (19:45)
[2018-04-09] MEDS ORDERED: MAGNESIUM HYDROXIDE SUSP 30 ML CUP PO PRN (19:45)
[2018-04-09] MEDS ORDERED: DEXTROSE 50% IN WATER 50 ML VIAL(D50) IV PUSH PRN (19:45)
[2018-04-09] MEDS ORDERED: LACTULOSE SYRUP 20 GM/30 ML CUP PO PRN (19:45)
[2018-04-09] MEDS ORDERED: METOPROLOL TARTRATE 5 MG/5 ML VIAL IV PUSH ONE (20:00)
[2018-04-09] MEDS: RESP: ALBUTEROL 2.5 MG/IPRATROPIUM 0.5 MG NEB (SCH) NEB (20:16)
[2018-04-09] MEDS: DOCUSATE SODIUM 50 MG/SENNA 8.6 MG TAB PO SCH (21:00)
[2018-04-09] MEDS: ATORVASTATIN 40 MG TAB PO SCH (21:04)
[2018-04-09] MEDS: NIFEdipine 30 MG SUSTAINED RELEASE TAB PO SCH (21:04)
[2018-04-09] MEDS: CARVEDILOL 6.25 MG TAB PO SCH (21:04)
[2018-04-09] MEDS: FERROUS SULFATE 325 MG (65 MG ELEMENTAL IRON) TAB PO SCH (21:04)
[2018-04-09] MEDS: guaiFENesin E.R. 600 MG TAB PO SCH (21:04)
[2018-04-09] MEDS: INSULIN DETEMIR 100 UNITS/ML VIAL SQ SCH (21:06)
[2018-04-09] MEDS: INSULIN ASPART SUPPLEMENTAL SCALE SQ SCH (21:06)
[2018-04-09] MEDS: BUDESONIDE-FORMOTEROL 160/4.5 MCG INHALER INH SCH (21:32)
[2018-04-09] MEDS: hydrALAZINE HCL 50 MG TAB PO SCH (21:32)
[2018-04-09] MEDS: SODIUM CHLORIDE 0.9% FLUSH 10 ML FLUSH IV FLUSH SCH (21:36)
[2018-04-09] MEDS ORDERED: hydrALAZINE HCL 20 MG/ML VIAL IV PUSH ONE (22:15)
[2018-04-09] MEDS: methylPREDNISolone SOD SUCC 40 MG/1 ML VIAL IV PUSH SCH (23:40)
[2018-04-10] VITALS (27 sets, daily range): BP systolic 136–185; BP diastolic 64–83; PULSE 57–84; RESP 21–24; TEMP 98–98.6; O2SAT 91–96
[2018-04-10] MEDS: RESP: ALBUTEROL 2.5 MG/IPRATROPIUM 0.5 MG NEB (PRN) NEB (03:46)
[2018-04-10] MEDS: hydrALAZINE HCL 50 MG TAB PO SCH ×3 (06:03→20:07)
[2018-04-10] MEDS: methylPREDNISolone SOD SUCC 40 MG/1 ML VIAL IV PUSH SCH ×3 (06:03→20:04)
[2018-04-10] MEDS: RESP: ALBUTEROL 2.5 MG/IPRATROPIUM 0.5 MG NEB (SCH) NEB ×4 (07:10→19:28)
[2018-04-10 07:45] LABS: AUTOMATED NEUTROPHIL # 3.2 TH/MM3 (1.8-7.7); BASOPHIL % 0.2 % (0.0-2.0); HEMOGLOBIN 7.6 GM/DL (11.6-15.3); LYMPH % 9.9 % (9.0-44.0); LYMPHOCYTE # 0.4 TH/MM3 (1.0-4.8); MEAN CELL VOLUME 93.1 FL (80.0-100.0); MEAN CORPUSCULAR HGB CONC 33.2 % (32.0-36.0); MEAN PLATELET VOLUME 8.5 FL (7.0-11.0); MONO % 0.8 % (0.0-8.0); NEUT % 89.1 % (16.0-70.0); PLATELET COUNT 256 TH/MM3 (150-450); RED BLOOD COUNT 2.47 MIL/MM3 (4.00-5.30); RED CELL DISTRIBUTION WIDTH 17.2 % (11.6-17.2); WHITE BLOOD COUNT 3.6 TH/MM3 (4.0-11.0)
[2018-04-10] MEDS: INSULIN ASPART SUPPLEMENTAL SCALE SQ SCH ×4 (08:21→20:18)
[2018-04-10] MEDS: ASPIRIN 81 MG CHEW TAB CHEW SCH (08:23)
[2018-04-10] MEDS: FERROUS SULFATE 325 MG (65 MG ELEMENTAL IRON) TAB PO SCH ×2 (08:23→20:04)
[2018-04-10] MEDS: guaiFENesin E.R. 600 MG TAB PO SCH ×2 (08:23→20:05)
[2018-04-10] MEDS: CARVEDILOL 6.25 MG TAB PO SCH ×2 (08:23→20:05)
[2018-04-10] MEDS: ISOSORBIDE MONONITRATE 60 MG CR TAB (IMDUR) PO SCH (08:23)
[2018-04-10] MEDS: PRASUGREL 10 MG TAB PO SCH (08:23)
[2018-04-10] MEDS: NIFEdipine 30 MG SUSTAINED RELEASE TAB PO SCH ×2 (08:24→20:05)
[2018-04-10] MEDS: FUROSEMIDE 40 MG/4 ML VIAL IV PUSH SCH ×2 (08:24→17:25)
[2018-04-10] MEDS: DOCUSATE SODIUM 50 MG/SENNA 8.6 MG TAB PO SCH ×2 (08:25→20:05)
[2018-04-10] MEDS: SODIUM CHLORIDE 0.9% FLUSH 10 ML FLUSH IV FLUSH SCH ×2 (08:25→20:05)
[2018-04-10] MEDS: INSULIN DETEMIR 100 UNITS/ML VIAL SQ SCH ×2 (08:32→20:05)
[2018-04-10 08:40] LABS: ALBUMIN 2.8 GM/DL (3.4-5.0); AST (GOT) 62 U/L (15-37); BICARBONATE 19.8 MEQ/L (21.0-32.0); BLOOD UREA NITROGEN 81 MG/DL (7-18); CALCIUM 8.6 MG/DL (8.5-10.1); CHLORIDE 111 MEQ/L (98-107); CREATININE 2.85 MG/DL (0.50-1.00); GLOMERULAR FILTRATION RATE 17 ML/MIN (>89); GLUCOSE,RANDOM 234 MG/DL (74-106); SODIUM (NA) 143 MEQ/L (136-145)
[2018-04-10 08:44] LABS: ALKALINE PHOSPHATASE 198 U/L (45-117); ALT (GPT) 72 U/L (10-53); TOTAL BILIRUBIN ADULT 0.3 MG/DL (0.2-1.0); TOTAL PROTEIN 6.6 GM/DL (6.4-8.2)
[2018-04-10] MEDS: BUDESONIDE-FORMOTEROL 160/4.5 MCG INHALER INH SCH ×2 (10:38→20:03)
[2018-04-10] MEDS: ACETAMINOPHEN/HYDROcodone 325 MG/5 MG TAB PO PRN ×2 (12:19→20:04)
--- NOTE | 2018-04-10 16:12 | HHI.PR ---
Subjective Remarks Patient seen this afternoon around 2 PM. She says she is feeling much better. Denies any chest pain. Reports shortness of breath much better. Denies any nausea or vomiting. She mentions, incidentally that left eye visual deficit has been going on for 2 days. Described as central redness, which appears to be improving around the periphery. Denies any headache. Denies any eye pain. Objective Vital Signs Date Time Temp Pulse Resp B/P (MAP) Pulse Ox O2 Delivery O2 Flow Rate FiO2 04/10/18 15:02 98.3 77 22 136/64 (88) 92 04/10/18 12:06 98.2 77 21 159/69 (99) 94 04/10/18 10:00 76 04/10/18 09:00 80 04/10/18 08:00 82 04/10/18 07:46 98.0 84 22 148/67 (94) 93 04/10/18 07:10 92 Venturi Mask 7.00 40 04/10/18 07:00 80 04/10/18 06:26 79 04/10/18 05:22 79 04/10/18 04:18 81 04/10/18 03:40 98.2 80 24 185/83 (117) 91 04/10/18 03:40 81 04/10/18 02:16 57 04/10/18 01:46 79 04/10/18 00:22 77 04/09/18 23:40 98.6 78 26 194/94 (127) 89 04/09/18 23:40 78 04/09/18 22:30 78 04/09/18 22:09 04/09/18 21:53 82 22 202/91 (128) 91 Venturi Mask 50 04/09/18 21:35 80 24 215/93 (133) 92 Venturi Mask 50 04/09/18 21:30 92 Venturi Mask 50 04/09/18 20:38 81 24 214/76 (122) 90 Nasal Cannula 5.00 04/09/18 20:28 93 Nasal Cannula 5.00 04/09/18 20:21 78 24 204/89 (127) 88 Nasal Cannula 5.00 04/09/18 20:16 88 Nasal Cannula 5.00 04/09/18 19:04 79 22 210/81 (124) 92 Nasal Cannula 5.00 04/09/18 18:25 76 22 220/93 (135) 89 Nasal Cannula 4.00 04/09/18 17:36 88 Nasal Cannula 4.00 04/09/18 17:36 77 22 88 Nasal Cannula 4.00 04/09/18 17:36 88 Nasal Cannula 4.00 04/09/18 17:36 97.6 84 22 209/ (127) 88 Nasal Cannula 4.00 04/09/18 17:23 97.4 80 22 209/ (127) 88 I/O 04/09/18 04/09/18 04/09/18 04/10/18 04/10/18 04/10/18 07:00 15:00 23:00 07:00 15:00 23:00 Intake Total 240 ml Output Total 750 ml Balance -510 ml Intake Oral 240 ml Output Urine Total 750 ml # Bowel Movements 3 Result Diagram: 04/10/1861404/10/18614 Objective Remarks GENERAL: She is sitting up in bed. Appears comfortable. Alert and oriented 3. SKIN: Warm and dry. HEAD: Normocephalic. EYES: No scleral icterus. No injection or drainage. NECK: Supple, trachea midline. No JVD. CARDIOVASCULAR: Regular rate and rhythm without murmurs, gallops, or rubs. RESPIRATORY: Breath sounds equal bilaterally. No accessory muscle use. GASTROINTESTINAL: Abdomen soft, non-tender, nondistended. MUSCULOSKELETAL: No cyanosis, or edema. BACK: Nontender without obvious deformity. No CVA tenderness. A/P Assessment and Plan //COPD: Chronic Respiratory Failure w/ Acute Exacerbation, +wheezing/ respiratory distress, s/p Solu-Medrol w/ improvement. Continue Solu-Medrol, Symbicort, DuoNeb, Mucinex. Pt home Nebulizer broken will need replacement on return home. = Shortness of breath improving. Continue diuresis, treatment for COPD. //Left eye visual deficit. 2 day history without any pain. She says this appears to be improving somewhat. = Ophthalmology consult. Check CT. //Anemia. 7.7. Likely secondary to anemia of chronic kidney disease. Consult nephrology as patient may require erythropoietin.transfuse as needed for Hgb <7 or if hemodynamically unstable. // Hypoxia: O2 sat 85% on 3L NC, significant respiratory distress on arrival, O2 sat 88-90% on 4-5L NC while in ER, will check STAT ABG, monitor O2, O2 as needed. // CHF: Acute on Chronic. Diastolic. Echo 01/03/18 w/ EF 55-60%, CXR w/ interstitial edema, h/o pleural effusion LLL w/ continued effusion, small to moderate right effusion, s/p Lasix in ER, will continue w/ diuresis Lasix 40mg IV bid, monitor I/O. = And fluid restriction. Strict intake and output. Continue to monitor // Hyperkalemia: K+ 6.4, s/p Ca/Insulin/Kayexalate in ER, repeat K+ tonight, additional treatment as needed. Telemetry. =-Improving. Expect continued improving on IV Lasix. // DM: Sliding scale w/ Accu-Cheks, resume home Levemir. // DVT Prophylaxis: SCD/Teds Discharge Planning Pending improvement. PT consulted. Case management following. Appreciate assistance. Timi Koehler MD April 10, 2018 16:12
[2018-04-10 16:54] LABS: RETIC # 37.3 MIL/L (20.0-150.0); RETIC % 1.5 % (0.4-3.0)
--- NOTE | 2018-04-10 17:31 | EKG ---
Date Performed: 04/09/2018 Time Performed: 17:42:04 PTAGE: 67 years EKG: Sinus rhythm WITH OCCASIONAL VENTRICULAR PREMATURE COMPLEXES POSSIBLE ANTERIOR MYOCARDIAL INFARCTION ABNORMAL ECG PREVIOUS TRACING : 03/03/2018 02.58 Since the previous tracing, no significant change noted DOCTOR: Dunia Reddy Interpretating Date/Time 04/10/2018 17:30:58
--- NOTE | 2018-04-10 18:24 | RADRPT ---
EXAM DATE/TIME: 04/10/2018 18:05 [facility] COMPARISON: CT BRAIN W/O CONTRAST, December 28, 2017, 9:04. INDICATIONS : Evaluate for stroke. RADIATION DOSE: 37.13 CTDIvol (mGy) MEDICAL HISTORY : Cardiovascular disease. Hypertension. Diabetes mellitus type 2. SURGICAL HISTORY : Appendectomy. Hysterectomy. ENCOUNTER: Initial ACUITY: 1 day PAIN SCALE: 0/10 LOCATION: cranial TECHNIQUE: Multiple contiguous axial images were obtained of the head. Using automated exposure control and adj ustment of the mA and/or kV according to patient size, radiation dose was kept as low as reasonably a chievable to obtain optimal diagnostic quality images. DICOM format image data is available electro nically for review and comparison. FINDINGS: CEREBRUM: The ventricles are normal for age. No evidence of midline shift, mass lesion, hemorrhage or acute in farction. No extra-axial fluid collections are seen. POSTERIOR FOSSA: The cerebellum and brainstem are intact. The 4th ventricle is midline. The cerebellopontine angle i s unremarkable. EXTRACRANIAL: The visualized portion of the orbits is intact. SKULL: The calvaria is intact. No evidence of skull fracture. CONCLUSION: No acute intracranial disease. Je Fletcher MD on April 10, 2018 at 18:21 Board Certified Radiologist. This report was verified electronically.
[2018-04-10] MEDS: ATORVASTATIN 40 MG TAB PO SCH (20:05)
[2018-04-10] MEDS: MORPHINE SULFATE 2 MG/ML SYRINGE IV PUSH PRN (23:16)
[2018-04-11] VITALS (25 sets, daily range): BP systolic 126–168; BP diastolic 65–80; PULSE 62–84; RESP 15–23; TEMP 97.2–98.4; O2SAT 91–96
[2018-04-11] MEDS: hydrALAZINE HCL 50 MG TAB PO SCH ×3 (05:05→21:47)
[2018-04-11 07:19] LABS: AUTOMATED NEUTROPHIL # 5.3 TH/MM3 (1.8-7.7); BASOPHIL % 0.1 % (0.0-2.0); HEMATOCRIT 21.6 % (35.0-46.0); HEMOGLOBIN 7.2 GM/DL (11.6-15.3); LYMPH % 8.1 % (9.0-44.0); LYMPHOCYTE # 0.5 TH/MM3 (1.0-4.8); MEAN CELL VOLUME 93.6 FL (80.0-100.0); MEAN CORPUSCULAR HEMOGLOBIN 31.2 PG (27.0-34.0); MEAN CORPUSCULAR HGB CONC 33.3 % (32.0-36.0); MEAN PLATELET VOLUME 8.2 FL (7.0-11.0); MONO % 3.8 % (0.0-8.0); MONOCYTE # 0.2 TH/MM3 (0-0.9); PLATELET COUNT 251 TH/MM3 (150-450); RED BLOOD COUNT 2.31 MIL/MM3 (4.00-5.30); RED CELL DISTRIBUTION WIDTH 17.5 % (11.6-17.2); WHITE BLOOD COUNT 6.1 TH/MM3 (4.0-11.0)
[2018-04-11] MEDS: RESP: ALBUTEROL 2.5 MG/IPRATROPIUM 0.5 MG NEB (SCH) NEB ×4 (07:36→20:51)
[2018-04-11 07:41] LABS: ALBUMIN 2.5 GM/DL (3.4-5.0); BICARBONATE 20.8 MEQ/L (21.0-32.0); CALCIUM 8.7 MG/DL (8.5-10.1); CREATININE 2.91 MG/DL (0.50-1.00); MAGNESIUM 2.4 MG/DL (1.5-2.5); PHOSPHORUS 6.2 MG/DL (2.5-4.9)
[2018-04-11] MEDS: INSULIN ASPART SUPPLEMENTAL SCALE SQ SCH ×4 (08:00→20:51)
[2018-04-11] MEDS: SODIUM CHLORIDE 0.9% FLUSH 10 ML FLUSH IV FLUSH SCH ×2 (08:56→20:35)
[2018-04-11] MEDS: FERROUS SULFATE 325 MG (65 MG ELEMENTAL IRON) TAB PO SCH ×2 (08:56→20:33)
[2018-04-11] MEDS: ASPIRIN 81 MG CHEW TAB CHEW SCH (08:56)
[2018-04-11] MEDS: CARVEDILOL 6.25 MG TAB PO SCH ×2 (08:56→20:33)
[2018-04-11] MEDS: NIFEdipine 30 MG SUSTAINED RELEASE TAB PO SCH ×2 (08:57→20:33)
[2018-04-11] MEDS: DOCUSATE SODIUM 50 MG/SENNA 8.6 MG TAB PO SCH ×2 (08:57→20:40)
[2018-04-11] MEDS: FUROSEMIDE 40 MG/4 ML VIAL IV PUSH SCH ×3 (08:57→20:35)
[2018-04-11] MEDS: guaiFENesin E.R. 600 MG TAB PO SCH ×2 (08:57→20:33)
[2018-04-11] MEDS: methylPREDNISolone SOD SUCC 40 MG/1 ML VIAL IV PUSH SCH (08:58)
[2018-04-11] MEDS: ISOSORBIDE MONONITRATE 60 MG CR TAB (IMDUR) PO SCH (08:58)
[2018-04-11] MEDS: BUDESONIDE-FORMOTEROL 160/4.5 MCG INHALER INH SCH ×2 (08:59→20:35)
[2018-04-11] MEDS: PRASUGREL 10 MG TAB PO SCH (08:59)
[2018-04-11] MEDS: INSULIN DETEMIR 100 UNITS/ML VIAL SQ SCH ×2 (09:00→20:40)
[2018-04-11] MEDS: METOLAZONE 5 MG TAB PO SCH (09:58)
--- NOTE | 2018-04-11 10:38 | MB ---
cc: Des Toro MD DATE: 04/11/2018 REASON FOR CONSULTATION: Chronic kidney disease with elevated BUN and creatinine. HISTORY OF PRESENT ILLNESS: This is a 67-year-old female known to me from before with a past medical history of ischemic heart disease, congestive heart failure with diastolic dysfunction, chronic obstructive pulmonary disease, recurrent pleural effusion, diabetes mellitus, chronic kidney disease, with advanced stage IV renal disease, who came to the hospital with a complaint of shortness of breath. I was called to see the patient because of her high BUN and creatinine. The patient has a known history of chronic kidney disease. She has been following with me and was admitted last month and at that time, her creatinine was as high as 3.0 and she was started on dialysis mainly for the fluid removal and now she came with a creatinine of 2.8. She was discharged with the serum creatinine of 2.8 to 2.9. She was taking her diuretics and according to her, she was watching her fluid and not drinking more than 40 ounces a day. Gradually, she saw her breathing has been getting worse and she has a cough with whitish sputum. She denies any chest pain. No palpitation. PAST MEDICAL HISTORY: Hypertension, hyperlipidemia, ischemic heart disease, chronic obstructive pulmonary disease, congestive heart failure with diastolic dysfunction, diabetes mellitus, chronic kidney disease, chronic anemia. PAST SURGICAL HISTORY: Appendicectomy, cardiac catheterization with stent placement, , tonsillectomy. REVIEW OF SYSTEMS: Denies any history of fever. No headache, dizziness or blurring of vision. The patient has generalized weakness, feeling tired, has worsening shortness of breath. She denies any chest pain. No palpitations. No nausea or vomiting. Her appetite is good. She is seeing some improvement in the breathing since she came in here. There is no dysuria or hematuria. No difficulty in passing urine. According to patient, she has been taking her medications regularly. SOCIAL HISTORY: The patient has no history of smoking or alcoholism. FAMILY HISTORY: Noncontributory. ALLERGIES: SHE IS ALLERGIC TO PROPOXYPHENE. MEDICATIONS: Currently she is on: 1. Mucinex ER 600 mg b.i.d. 2. Jocelyn-Colace 1 tablet b.i.d. 3. Ferrous sulfate 325 mg b.i.d. 4. Methylprednisolone 40 mg b.i.d. 5. Lasix 40 mg b.i.d. 6. Aspirin 81 mg daily. 7. Lipitor 40 mg at bedtime. 8. Coreg 6.25 mg hours. 9. Nifedipine 30 mg q. 12 hour. 10. Hydralazine 75 mg q. 8 hour. 11. Aspart insulin sliding scale. 12. DuoNeb nebulizer. 13 . Reglan as needed. 14. Morphine as needed. PHYSICAL EXAMINATION: GENERAL: The patient is awake and alert. She is in mild respiratory distress. VITAL SIGNS: Her last blood pressure was 150/74. Her blood pressure was on the higher side when she came in with a systolic over 200. HEENT: Pupils are mid constricted. Nonicteric sclerae. Conjunctivae pale. NECK: Supple. JVD is slightly elevated. LUNGS: The patient has bilateral decreased air entry with basal rales. HEART: S1, S2. Regular rhythm. ABDOMEN: Distended, soft, lax. There is no tenderness. EXTREMITIES: She has bilateral 2+ edema. INVESTIGATIONS: WBC count 6.1, hemoglobin 7.2, platelet count of 251, neutrophils 88%. Sodium 143, potassium 5.5, chloride 111, bicarbonate 20.3, BUN 86, creatinine 2.9, glucose 183, calcium is 8.7, phosphorus 6.2, magnesium 2.4, AST of 62, ALT 72, alkaline phosphatase 198, LDH is 178, total protein is 6.6 with an albumin of 2.5. During the last admission, she has an iron saturation that was 36%. This was in December of this year and the ferritin was 420. INR is 1.0. Urinalysis showing protein of 300. IMAGING STUDIES: The patient had a CT scan of the brain done yesterday which shows no acute intracranial lesion. Chest x-ray was done on Wednesday which shows increased interstitial marking with pulmonary edema, possibility of consolidation or infiltrate or effusion in left lower lung. A small to moderate sized right pleural effusion. ASSESSMENT AND PLAN: 1. Chronic kidney disease with advanced renal failure. 2. Congestive heart failure with diastolic dysfunction. 3. Recurrent pleural effusion and respiratory failure. 4. Anemia. 5. Hyperkalemia. The patient has advanced stage IV renal disease and her GFR now is staying around 16 to 17. She is on Lasix 40 mg b.i.d. I will increase it to 80 twice a day and add the metolazone once a day. For her anemia, her iron saturation was normal. I will give her 1 dose of Epogen and follow the hemoglobin level. If her kidney function gets worse, she possibly will need long-term dialysis. This has been discussed with the patient many times. She was told again to be compliant with her fluid restriction. Thank you for the consultation. I will follow the patient while she is in the hospital. Flavio Toro MD AQJ/DL , 09:43 AM , 10:38 AM
[2018-04-11] MEDS ORDERED: EPOETIN ALFA 20,000 UNITS/ML VIAL SQ ONE (11:00)
--- NOTE | 2018-04-11 11:12 | HHI.PR ---
Subjective Remarks Patient again says that she is breathing all right however continues on 6 L Ventimask. Denies any chest pain. Denies any nausea or vomiting. Objective Vital Signs Date Time Temp Pulse Resp B/P (MAP) Pulse Ox O2 Delivery O2 Flow Rate FiO2 04/11/18 07:39 91 Venturi Mask 6.00 50 04/11/18 07:00 97.5 73 22 126/65 (85) 91 04/11/18 06:00 66 04/11/18 05:00 70 04/11/18 04:00 98.1 66 20 150/74 (99) 96 04/11/18 04:00 66 04/11/18 03:00 72 04/11/18 02:00 73 04/11/18 01:00 71 04/11/18 00:00 98.4 70 22 168/79 (108) 95 04/11/18 00:00 70 04/10/18 23:00 75 04/10/18 22:00 79 04/10/18 21:00 74 04/10/18 20:00 98.6 76 22 154/70 (98) 94 04/10/18 20:00 76 04/10/18 19:28 96 Venturi Mask 8.00 50 04/10/18 17:00 74 04/10/18 16:00 74 04/10/18 15:02 98.3 77 22 136/64 (88) 92 04/10/18 15:00 75 04/10/18 14:00 72 04/10/18 13:00 74 04/10/18 12:06 98.2 77 21 159/69 (99) 94 04/10/18 12:00 74 04/10/18 11:00 75 I/O 04/10/18 04/10/18 04/10/18 04/11/18 04/11/18 04/11/18 07:00 15:00 23:00 07:00 15:00 23:00 Intake Total 240 ml 480 ml Output Total 750 ml 800 ml 700 ml Balance -510 ml -800 ml -220 ml Intake Oral 240 ml 480 ml Output Urine Total 750 ml 800 ml 700 ml # Bowel Movements 3 0 Result Diagram: 04/11/18 0653 04/11/1853 Objective Remarks GENERAL: She is sitting up in bed. Appears comfortable. Alert and oriented 3. SKIN: Warm and dry. HEAD: Normocephalic. EYES: No scleral icterus. No injection or drainage. NECK: Supple, trachea midline. No JVD. CARDIOVASCULAR: Regular rate and rhythm without murmurs, gallops, or rubs. RESPIRATORY: Distant breath sounds secondary to body habitus. Sounds to be faint crackles in bases. No accessory muscle use. GASTROINTESTINAL: Abdomen soft, non-tender, nondistended. MUSCULOSKELETAL: No cyanosis, or edema. BACK: Nontender without obvious deformity. No CVA tenderness. A/P Assessment and Plan //COPD: Chronic Respiratory Failure w/ Acute Exacerbation, +wheezing/ respiratory distress, s/p Solu-Medrol w/ improvement. Continue Solu-Medrol, Symbicort, DuoNeb, Mucinex. Pt home Nebulizer broken will need replacement on return home. = Shortness of breath improving. Continue diuresis, treatment for COPD. = 04/11. Discussed with nephrology. Increase diuretics. Appreciate assistance. //Left eye visual deficit. 2 day history without any pain. She says this appears to be improving somewhat. = CT head negative for acute process. Ophthalmology consult pending. //Anemia. 7.7. Likely secondary to anemia of chronic kidney disease. Consult nephrology as patient may require erythropoietin.transfuse as needed for Hgb <7 or if hemodynamically unstable. = 04/11. Hemoglobin 7.2. Discussed with nephrology. Will start erythropoietin. Appreciate assistance. // Hypoxia: O2 sat 85% on 3L NC, significant respiratory distress on arrival, O2 sat 88-90% on 4-5L NC while in ER, will check STAT ABG, monitor O2, O2 as needed. // CHF: Acute on Chronic. Diastolic. Echo 01/03/18 w/ EF 55-60%, CXR w/ interstitial edema, h/o pleural effusion LLL w/ continued effusion, small to moderate right effusion, s/p Lasix in ER, will continue w/ diuresis Lasix 40mg IV bid, monitor I/O. = cont fluid restriction. Strict intake and output. Continue to monitor // Hyperkalemia: K+ 6.4, s/p Ca/Insulin/Kayexalate in ER, repeat K+ tonight, additional treatment as needed. Telemetry. = Potassium 5.5 expect continued improving on increased dose of IV Lasix. // DM: Sliding scale w/ Accu-Cheks, resume home Levemir. = Increase to moderate sliding scale. // DVT Prophylaxis: SCD/Teds Discharge Planning Pending improvement. PT consulted. Case management following. Appreciate assistance. Timi Koehler MD April 11, 2018 11:12
--- NOTE | 2018-04-11 12:07 | PD.CONS ---
History of Present Illness Service Ophthalmology Consult Requested By Reason for Consult decreased vision left eye Primary Care Physician NICHOLAS Claire Diagnoses: History of Present Illness This is a 67-year-old female with a PMH of CKD, HTN, Hyperlipidemia, CHF, COPD, CAD and DM who presented to ED with SOB x 2-3 days. Being treated for acute exacerbation of COPD/CHF. She states 2 days ago she woke up and couldn't see centrally out of her left eye. Feels like she is seeing red. Thinks it is gradually improving. Ocular history significant for bilateral hemorrhages ( unknown etiology), and cataracts. She normally sees [facility] for her eye exams as an outpatient. Past Family Social History Allergies: Coded Allergies: propoxyphene (Verified Allergy, Mild, RASH, 03/03/18) Physical Exam Vital Signs Vital Signs Date Time Temp Pulse Resp B/P (MAP) Pulse Ox O2 Delivery O2 Flow Rate FiO2 04/11/18 11:00 97.4 66 23 143/72 (95) 93 04/11/18 07:39 91 Venturi Mask 6.00 50 04/11/18 07:00 97.5 73 22 126/65 (85) 91 04/11/18 07:00 65 04/11/18 07:00 84 04/11/18 06:00 66 04/11/18 05:00 70 04/11/18 04:00 98.1 66 20 150/74 (99) 96 04/11/18 04:00 66 04/11/18 03:00 72 04/11/18 02:00 73 04/11/18 01:00 71 04/11/18 00:00 98.4 70 22 168/79 (108) 95 04/11/18 00:00 70 04/10/18 23:00 75 04/10/18 22:00 79 04/10/18 21:00 74 04/10/18 20:00 98.6 76 22 154/70 (98) 94 04/10/18 20:00 76 04/10/18 19:28 96 Venturi Mask 8.00 50 04/10/18 17:00 74 04/10/18 16:00 74 04/10/18 15:02 98.3 77 22 136/64 (88) 92 04/10/18 15:00 75 04/10/18 14:00 72 04/10/18 13:00 74 04/10/18 12:06 98.2 77 21 159/69 (99) 94 Physical Exam Va cc at near OD 20/200, OS HM EOM full OU, no diplopia CVF full OD, unable OS Pupils 2-1 no APD OU IOP normal to palpation OU Anterior exam OD - normal eyelid, C/S W&Q, K clear, AC deep, pupil round, lens clear OS - normal eyelid, C/S W&Q, K clear, AC deep, pupil round, lens clear Dilated exam OD - ON s/p/f, DBH in all 4 quadrants, MA OS - ON s/p/f, vit heme, retinal heme in macula and surrounding ON Laboratory Laboratory Tests Test 04/11/18 06:53 White Blood Count 6.1 Red Blood Count 2.31 Hemoglobin 7.2 Hematocrit 21.6 Mean Corpuscular Volume 93.6 Mean Corpuscular Hemoglobin 31.2 Mean Corpuscular Hemoglobin Concent 33.3 Red Cell Distribution Width 17.5 Platelet Count 251 Mean Platelet Volume 8.2 Neutrophils (%) (Auto) 88.0 Lymphocytes (%) (Auto) 8.1 Monocytes (%) (Auto) 3.8 Eosinophils (%) (Auto) 0.0 Basophils (%) (Auto) 0.1 Neutrophils # (Auto) 5.3 Lymphocytes # (Auto) 0.5 Monocytes # (Auto) 0.2 Eosinophils # (Auto) 0.0 Basophils # (Auto) 0.0 CBC Comment DIFF FINAL Differential Comment Blood Urea Nitrogen 86 Creatinine 2.91 Random Glucose 183 Albumin 2.5 Calcium Level 8.7 Phosphorus Level 6.2 Magnesium Level 2.4 Sodium Level 143 Potassium Level 5.5 Chloride Level 111 Carbon Dioxide Level 20.8 Anion Gap 11 Estimat Glomerular Filtration Rate 16 Result Diagram: 04/11/18 0653 04/11/18 0653 Assessment and Plan Problem List: (1) Non-proliferative diabetic retinopathy, severe, right eye ICD Codes: E11.3491 - Type 2 diabetes mellitus with severe nonproliferative diabetic retinopathy without macular edema, right eye Plan: Advised pt she needs strict blood glucose control to make sure the diabetic retinopathy in her right eye does not worsen. (2) Proliferative diabetic retinopathy of left eye associated with type 2 diabetes mellitus ICD Codes: E11.3592 - Type 2 diabetes mellitus with proliferative diabetic retinopathy without macular edema, left eye Plan: Patient will need panretinal laser photocoagulation, and possible anti- VEGF injection by Retina specialist when she is discharged from the hospital. She can call her outpatient wide area network engineer or myself to set this up. Violeta Vila MD April 11, 2018 12:07
[2018-04-11] MEDS: CALCIUM ACETATE 667 MG CAP PO SCH ×2 (13:06→17:18)
[2018-04-11] MEDS: ACETAMINOPHEN/HYDROcodone 325 MG/5 MG TAB PO PRN (18:56)
[2018-04-11] MEDS: ATORVASTATIN 40 MG TAB PO SCH (20:33)
--- NOTE | 2018-04-11 20:36 | MB ---
cc: Aaron Blankenship MD DATE: 04/11/2018 DATE OF CONSULTATION: 04/11/2018 REQUESTING PHYSICIAN: Dr. Timi Koehler. REASON FOR CONSULTATION: Evaluate shortness of breath and pleural effusion. HISTORY OF PRESENT ILLNESS: Ms. Maynard is a 67-year-old female known to me from the previous admission with history of COPD, chronic kidney disease, hypertension, congestive heart failure and drug-eluting stent placement. The patient states that for the last 3 weeks she has been not feeling well, but over the last 3 days she is getting much more short of breath, did not have any chest pain. Has increased swelling in her legs. Because of worsening of symptoms, she came to the hospital. She had a workup done. She had a CT scan of the chest done, which shows increased interstitial marking with continued consolidation in the left lung base suggestive of effusion. She also has moderate right-sided pleural effusion. She had a CT scan of the brain done, which shows no acute intracranial disease. The patient was complaining of decreased vision. She was seen by Dr. Violeta Vila and was found to have proliferative retinopathy. Her CBC showed WBC count of 6.1, hemoglobin 7.2, hematocrit 21.6, MCV 93, platelet count 251. Sodium 143, potassium 5.5, chloride 111, CO2 20, BUN 86, creatinine 2.81. Her blood gas on 5 liters nasal cannula: pH 7.31, pCO2 38, pO2 59. Currently, she is on oxygen mask. PAST MEDICAL HISTORY: Significant for history of COPD, coronary artery disease, status post drug-eluting stent, congestive heart failure, chronic kidney disease, history of Clostridium difficile colitis. MEDICATIONS: She is currently takin. Lasix 80 mg twice a day. 2. She is on Insulin. 3. Metolazone 5 mg a day. 4. Aspirin 81 mg a day. 5. Isosorbide 60 mg a day. 6. Effient 10 mg a day. 7. Hydralazine 75 mg q.8 hours. 8. Symbicort 160/4.5 two puffs twice a day. 9. Mucinex 600 mg twice a day. 10. Lipitor 40 mg a day. 11. Coreg 6.25 mg every 12 hours. 12. Ferrous sulfate 325 mg twice a day. 13. Nifedipine 30 mg q. 12 hours. 14. Albuterol and Atrovent nebulizer treatment. 15. Reglan 5 mg p.r.n. ALLERGIES: SHE IS ALLERGIC TO PROPOXYPHENE. SOCIAL HISTORY: She has no history of smoking or alcohol abuse. FAMILY HISTORY: Noncontributory. REVIEW OF SYSTEMS: Denies any fever, no chest pain. No DVT or pulmonary embolism. No seizure or epilepsy. PHYSICAL EXAMINATION: GENERAL: Reveals an elderly female, short of breath. She is on oxygen mask. VITAL SIGNS: Blood pressure 154/70, heart rate 84, respiratory rate 21, temperature 97.4. HEENT: Pupils are equal and reactive. NECK: Supple. JVD not raised. CHEST: She has decreased breath sounds at bases. Has basilar rales. HEART: S1, S2 normal. ABDOMEN: Soft, nondistended. Bowel sounds are present. EXTREMITIES: 2-3+ pedal edema. IMPRESSION: 1. Respiratory insufficiency. 2. Congestive heart failure. 3. Pleural effusion. 4. Worsening renal functions. 5. Coronary artery disease status post stent placement. PLAN: The patient is being considered for hemodialysis. Diurese and monitor electrolytes, supplemental her oxygen. If the effusion gets worse, then we will consider thoracentesis. Further treatment pending the course in the hospital. Thank you Dr. Koehlre for this consult. MD TRUPTI Fishman/SB , 07:35 PM , 08:34 PM
[2018-04-12] VITALS (30 sets, daily range): BP systolic 123–165; BP diastolic 59–76; PULSE 60–84; RESP 15–24; TEMP 96.9–97.6; O2SAT 91–94
[2018-04-12] MEDS: ACETAMINOPHEN/HYDROcodone 325 MG/5 MG TAB PO PRN ×2 (02:50→09:21)
[2018-04-12] MEDS: hydrALAZINE HCL 50 MG TAB PO SCH ×3 (05:28→22:57)
[2018-04-12 06:44] LABS: AUTOMATED NEUTROPHIL # 4.5 TH/MM3 (1.8-7.7); BASOPHIL % 0.1 % (0.0-2.0); EOSINOPHIL % 0.1 % (0.0-4.0); HEMATOCRIT 21.9 % (35.0-46.0); HEMOGLOBIN 7.3 GM/DL (11.6-15.3); LYMPH % 13.4 % (9.0-44.0); LYMPHOCYTE # 0.8 TH/MM3 (1.0-4.8); MEAN CELL VOLUME 93.8 FL (80.0-100.0); MEAN CORPUSCULAR HEMOGLOBIN 31.3 PG (27.0-34.0); MEAN CORPUSCULAR HGB CONC 33.4 % (32.0-36.0); MEAN PLATELET VOLUME 8.3 FL (7.0-11.0); MONO % 6.3 % (0.0-8.0); MONOCYTE # 0.4 TH/MM3 (0-0.9); NEUT % 80.1 % (16.0-70.0); PLATELET COUNT 234 TH/MM3 (150-450); RED BLOOD COUNT 2.34 MIL/MM3 (4.00-5.30); RED CELL DISTRIBUTION WIDTH 17.6 % (11.6-17.2); WHITE BLOOD COUNT 5.6 TH/MM3 (4.0-11.0)
[2018-04-12 07:27] LABS: ALBUMIN 2.6 GM/DL (3.4-5.0); BICARBONATE 22.4 MEQ/L (21.0-32.0); CALCIUM 8.3 MG/DL (8.5-10.1); CREATININE 3.03 MG/DL (0.50-1.00); MAGNESIUM 2.3 MG/DL (1.5-2.5); PHOSPHORUS 5.5 MG/DL (2.5-4.9)
[2018-04-12] MEDS: RESP: ALBUTEROL 2.5 MG/IPRATROPIUM 0.5 MG NEB (SCH) NEB ×4 (07:34→19:53)
[2018-04-12] MEDS: INSULIN ASPART SUPPLEMENTAL SCALE SQ SCH ×4 (08:00→20:35)
[2018-04-12] MEDS: BUDESONIDE-FORMOTEROL 160/4.5 MCG INHALER INH SCH ×2 (09:00→20:27)
[2018-04-12] MEDS: INSULIN DETEMIR 100 UNITS/ML VIAL SQ SCH ×2 (09:00→20:33)
[2018-04-12] MEDS: FUROSEMIDE 40 MG/4 ML VIAL IV PUSH SCH ×2 (09:20→18:06)
[2018-04-12] MEDS: ISOSORBIDE MONONITRATE 60 MG CR TAB (IMDUR) PO SCH (09:20)
[2018-04-12] MEDS: CALCIUM ACETATE 667 MG CAP PO SCH ×3 (09:20→17:08)
[2018-04-12] MEDS: METOLAZONE 5 MG TAB PO SCH (09:21)
[2018-04-12] MEDS: NIFEdipine 30 MG SUSTAINED RELEASE TAB PO SCH ×2 (09:22→20:24)
[2018-04-12] MEDS: DOCUSATE SODIUM 50 MG/SENNA 8.6 MG TAB PO SCH ×2 (09:22→20:24)
[2018-04-12] MEDS: FERROUS SULFATE 325 MG (65 MG ELEMENTAL IRON) TAB PO SCH ×2 (09:22→20:24)
[2018-04-12] MEDS: CARVEDILOL 6.25 MG TAB PO SCH ×2 (09:22→20:24)
[2018-04-12] MEDS: PRASUGREL 10 MG TAB PO SCH (09:22)
[2018-04-12] MEDS: guaiFENesin E.R. 600 MG TAB PO SCH ×2 (09:22→20:24)
[2018-04-12] MEDS: ASPIRIN 81 MG CHEW TAB CHEW SCH (09:22)
[2018-04-12] MEDS: SODIUM CHLORIDE 0.9% FLUSH 10 ML FLUSH IV FLUSH SCH ×2 (09:23→20:27)
--- NOTE | 2018-04-12 15:36 | HHI.PR ---
Subjective Remarks Patient continues on 50% FiO2. Says that her breathing is about the same as usual. Denies any chest pain. Denies any nausea or vomiting. Denies any lightheadedness or dizziness Objective Vital Signs Date Time Temp Pulse Resp B/P (MAP) Pulse Ox O2 Delivery O2 Flow Rate FiO2 04/12/18 14:00 66 04/12/18 13:00 63 04/12/18 12:00 64 04/12/18 11:00 60 04/12/18 11:00 97.2 64 24 138/67 (90) 93 04/12/18 10:30 22 04/12/18 10:00 64 04/12/18 09:00 68 04/12/18 08:00 67 04/12/18 07:36 92 Venturi Mask 6.00 50 04/12/18 07:00 70 04/12/18 07:00 97.5 67 21 123/59 (80) 92 04/12/18 06:00 68 04/12/18 05:00 68 04/12/18 04:10 97.6 68 15 165/76 (105) 94 04/12/18 04:00 68 04/12/18 04:00 68 04/12/18 03:00 72 04/12/18 02:00 72 04/12/18 01:00 68 04/12/18 00:00 70 04/12/18 00:00 70 04/11/18 23:50 97.4 69 15 162/80 (107) 93 04/11/18 23:00 70 04/11/18 22:00 82 04/11/18 21:00 72 04/11/18 20:51 92 Venturi Mask 6.00 50 04/11/18 20:23 72 04/11/18 20:23 97.4 72 17 155/73 (100) 92 04/11/18 20:00 72 04/11/18 19:00 72 I/O 04/11/18 04/11/18 04/11/18 04/12/18 04/12/18 04/12/18 07:00 15:00 23:00 07:00 15:00 23:00 Intake Total 480 ml 1000 ml 480 ml Output Total 700 ml 650 ml 800 ml Balance -220 ml 350 ml -320 ml Intake Oral 480 ml 1000 ml 480 ml Output Urine Total 700 ml 650 ml 800 ml # Bowel Movements 0 Result Diagram: 04/12/18 0607 04/12/18 0607 Objective Remarks GENERAL: She is sitting up in bed. Appears comfortable. Alert and oriented 3. SKIN: Warm and dry. HEAD: Normocephalic. EYES: No scleral icterus. No injection or drainage. NECK: Supple, trachea midline. No JVD. CARDIOVASCULAR: Regular rate and rhythm without murmurs, gallops, or rubs. RESPIRATORY: Distant breath sounds secondary to body habitus. Sounds to be faint crackles in bases. No accessory muscle use. GASTROINTESTINAL: Abdomen soft, non-tender, nondistended. MUSCULOSKELETAL: No cyanosis. Still with +2 edema as yesterday. No broken skin. Patient does have right lower extremity chronic healing ulcer as before. Appears scabbed over without any surrounding erythema or drainage BACK: Nontender without obvious deformity. No CVA tenderness. A/P Assessment and Plan //COPD: Chronic Respiratory Failure w/ Acute Exacerbation, //Hypoxemic respiratory failure +wheezing/respiratory distress, s/p Solu-Medrol w/ improvement. Continue Solu- Medrol, Symbicort, DuoNeb, Mucinex. Pt home Nebulizer broken will need replacement on return home. = Shortness of breath improving. Continue diuresis, treatment for COPD. = 04/11. Discussed with nephrology. Increase diuretics. Appreciate assistance. = 16. Stable respiratory status. Continues on 50% FiO2. Continue diuretics as per nephrology. Appreciate assistance. //Left eye visual deficit. 2 day history without any pain. She says this appears to be improving somewhat. = CT head negative for acute process. Ophthalmology consult pending. = Patient will need follow-up with ophthalmology as outpatient for laser ablation. //Anemia. 7.7. Likely secondary to anemia of chronic kidney disease. Consult nephrology as patient may require erythropoietin.transfuse as needed for Hgb <7 or if hemodynamically unstable. = 04/11. Hemoglobin 7.2. Discussed with nephrology. Will start erythropoietin. Appreciate assistance. = 04/12. Hemoglobin continues stable. Status post urethral Matty. Appreciate nephrology assistance. // CHF: Acute on Chronic. Diastolic. Echo 01/03/18 w/ EF 55-60%, CXR w/ interstitial edema, h/o pleural effusion LLL w/ continued effusion, small to moderate right effusion, s/p Lasix in ER, will continue w/ diuresis Lasix 40mg IV bid, monitor I/O. = cont fluid restriction. Strict intake and output. Continue to monitor // Hyperkalemia: K+ 6.4, s/p Ca/Insulin/Kayexalate in ER, repeat K+ tonight, additional treatment as needed. Telemetry. = Potassium 5.5 expect continued improving on increased dose of IV Lasix. = 04/12. Potassium 5.1. Improved. Continue to monitor. // DM: Sliding scale w/ Accu-Cheks, resume home Levemir. = Increase to moderate sliding scale. = 04/12. Glucose acceptable on increase sliding scale. Continue to monitor. // DVT Prophylaxis: SCD/Teds Discharge Planning Pending improvement. Still on 50% FiO2. Will need SNF/rehab on discharge. = Will need follow-up with ophthalmology for laser ablation =case management following. Appreciate assistance. Timi Koehler MD April 12, 2018 15:35
--- NOTE | 2018-04-12 15:44 | HHI.NPPN ---
Subjective History of Present Illness This is a 67-year-old female known to me from before with a past medical history of ischemic heart disease, congestive heart failure with diastolic dysfunction, chronic obstructive pulmonary disease, recurrent pleural effusion, diabetes mellitus, chronic kidney disease,with advanced stage IV renal disease, who came to the hospital with a complaint of shortness of breath.Nephrology was called to see the patient because of her high BUN and creatinine. The patient has a known history of chronic kidney disease. She has been following with me and was admitted last month and at that time, her creatinine was as high as 3.0 and she was started on dialysis mainly for the fluid removal and now she came with a creatinine of 2.8. She was discharged with the serum creatinine of 2.8 to 2.9. She was taking her diuretics and according to her, she was watching her fluid and not drinking more than 40 ounces a day. Gradually, she saw her breathing has been getting worse and she has a cough with whitish sputum. She denies any chest pain. No palpitation. Additional Remarks Patient continues to report shortness of breath. Moderate to large amount of lower extremity edema. Creatinine with slight bump at 3.03. (Jessica Clemons) Review of Systems General Constitutional: Fatigue (Jessica Clemons) Respiratory Lungs: SOB (Jessica Clemons) Cardiovascular Cardiac: Edema, KAMARA (Jessica Clemons) Gastrointestinal GI Remarks Denies abdominal pain (Jessica Clemons) Objective Data Data Vital Signs Date Time Temp Pulse Resp B/P (MAP) Pulse Ox O2 Delivery O2 Flow Rate FiO2 04/12/18 14:00 66 04/12/18 13:00 63 04/12/18 12:00 64 04/12/18 11:00 60 04/12/18 11:00 97.2 64 24 138/67 (90) 93 04/12/18 10:30 22 04/12/18 10:00 64 04/12/18 09:00 68 04/12/18 08:00 67 04/12/18 07:36 92 Venturi Mask 6.00 50 04/12/18 07:00 70 04/12/18 07:00 97.5 67 21 123/59 (80) 92 04/12/18 06:00 68 04/12/18 05:00 68 04/12/18 04:10 97.6 68 15 165/76 (105) 94 04/12/18 04:00 68 04/12/18 04:00 68 04/12/18 03:00 72 04/12/18 02:00 72 04/12/18 01:00 68 04/12/18 00:00 70 04/12/18 00:00 70 04/11/18 23:50 97.4 69 15 162/80 (107) 93 04/11/18 23:00 70 04/11/18 22:00 82 04/11/18 21:00 72 04/11/18 20:51 92 Venturi Mask 6.00 50 04/11/18 20:23 72 04/11/18 20:23 97.4 72 17 155/73 (100) 92 04/11/18 20:00 72 04/11/18 19:00 72 (Jessica Clemons) -: 04/12/18 0607 04/12/18 0607 Imaging Last Impressions Head CT 04/10/18 0000 Signed Impressions: Service Date/Time: Tuesday, April 10, 2018 18:05 - CONCLUSION: No acute intracranial disease. Je Fletcher MD Chest X-Ray 04/09/18 1731 Signed Impressions: Service Date/Time: Monday, April 09, 2018 17:45 - CONCLUSION: 1. Increased interstitial markings bilaterally suggesting pulmonary edema. 2. There is continued consolidation left lower lung suggestive of infiltrate and effusion. 3. There is a small to moderate right-sided effusion David Lezama MD Tubes & Lines: Lim (Jessica Clemons) Physical Exam General Appearance: No Acute Distress, Comfortable (Jessica Clemons) Pulmonary Resp Exam: Breath Sounds Equal, No Distress, Rhonchi, Decreased Bases (Jessica Clemons) Gastrointestinal/Abdomen GI Exam: Non-Tender, Bowel Sounds Present (Jessica Clemons) Genitourinary Exam: Flank Non-Tender (Jessica Clemons) Integumentary Skin Exam: Clear, Warm (Jessica Clemons) Extremeties Extremities Exam: Moderate Edema, Pitting Edema, Dependent Edema (Jessica Clemons) Neurologic Neuro Exam: Alert, Awake, Oriented (Jessica Clemons) Psychiatric Psych Exam: Appropriate Responses (Jessica Clemons) Assessment/Plan Discussed Condition With: Patient Assessment Summary: Fluid/Volume Overload Problem List: (1) Chronic kidney disease (CKD) stage G4/A1, severely decreased glomerular filtration rate (GFR) between 15-29 mL/min/1.73 square meter and albuminuria creatinine ratio less than 30 mg/g ICD Codes: N18.4 - Chronic kidney disease, stage 4 (severe) Plan: Patient has chronic kidney disease stage IV with a GFR of 16 to 17. Plan Creatinine with at 3.03 from 2.91 most likely from diuresis Continue lasix 80 mg BID Continue metalozone Fluid restriction Avoid nephrotoxins Albumin level low will order albumin to assist with fluid shift Hyperkalemia is resolved at 5.1 today. Patient may need dialysis in the future this has been discussed with patient by Dr. Cortez calderón in AM (2) Diastolic CHF, acute ICD Codes: I50.31 - Acute diastolic (congestive) heart failure Plan: continue lasix (Jessica Clemons) Problem List: (1) Chronic kidney disease (CKD) stage G4/A1, severely decreased glomerular filtration rate (GFR) between 15-29 mL/min/1.73 square meter and albuminuria creatinine ratio less than 30 mg/g ICD Codes: N18.4 - Chronic kidney disease, stage 4 (severe) Plan: Patient has chronic kidney disease stage IV with a GFR of 16 to 17. Plan Creatinine with at 3.03 from 2.91 most likely from diuresis Continue lasix 80 mg BID Continue metalozone Fluid restriction Avoid nephrotoxins Albumin level low will order albumin to assist with fluid shift Hyperkalemia is resolved at 5.1 today. Patient may need dialysis in the future this has been discussed with patient by Dr. Cortez calderón in AM. Patient seen and examined, agree with above. If Creatinine continue to get worse, possibly will need [facility]. (2) Diastolic CHF, acute ICD Codes: I50.31 - Acute diastolic (congestive) heart failure Plan: continue lasix (Jumani,Kacey Jessica Jones April 12, 2018 15:44 Flavio Toro MD April 12, 2018 21:27
[2018-04-12] MEDS ORDERED: CHLOROTHIAZIDE SOD 500 MG VIAL IV ONE (17:00)
[2018-04-12] MEDS: ALBUMIN 25% INJ 50 ML IV SCH (17:08)
--- NOTE | 2018-04-12 18:46 | HHI.PR ---
Subjective Remarks 67 YOWF with COPD,Hypoxia,CHF,CKD On Oxymask being diureased Increase in Cr no CP Objective Vital Signs Vital Signs Date Time Temp Pulse Resp B/P (MAP) Pulse Ox O2 Delivery O2 Flow Rate FiO2 04/12/18 18:00 68 04/12/18 17:00 84 04/12/18 16:00 66 04/12/18 15:00 66 04/12/18 15:00 97.4 67 24 139/71 (93) 91 04/12/18 14:00 66 04/12/18 13:00 63 04/12/18 12:00 64 04/12/18 11:00 60 04/12/18 11:00 97.2 64 24 138/67 (90) 93 04/12/18 10:30 22 04/12/18 10:00 64 04/12/18 09:00 68 04/12/18 08:00 67 04/12/18 07:36 92 Venturi Mask 6.00 50 04/12/18 07:00 70 04/12/18 07:00 97.5 67 21 123/59 (80) 92 04/12/18 06:00 68 04/12/18 05:00 68 04/12/18 04:10 97.6 68 15 165/76 (105) 94 04/12/18 04:00 68 04/12/18 04:00 68 04/12/18 03:00 72 04/12/18 02:00 72 04/12/18 01:00 68 04/12/18 00:00 70 04/12/18 00:00 70 04/11/18 23:50 97.4 69 15 162/80 (107) 93 04/11/18 23:00 70 04/11/18 22:00 82 04/11/18 21:00 72 04/11/18 20:51 92 Venturi Mask 6.00 50 04/11/18 20:23 72 04/11/18 20:23 97.4 72 17 155/73 (100) 92 04/11/18 20:00 72 04/11/18 19:00 72 I/O 04/11/18 04/11/18 04/11/18 04/12/18 04/12/18 04/12/18 07:00 15:00 23:00 07:00 15:00 23:00 Intake Total 480 ml 1000 ml 480 ml 560 ml Output Total 700 ml 650 ml 800 ml 600 ml Balance -220 ml 350 ml -320 ml -40 ml Intake Oral 480 ml 1000 ml 480 ml 560 ml Output Urine Total 700 ml 650 ml 800 ml 600 ml # Bowel Movements 0 Result Diagram: 04/12/1860604/12/18606 Objective Remarks GENERAL: MBMNWF, mild sob SKIN: Warm and dry. HEAD: Normocephalic. EYES: No scleral icterus. No injection or drainage. NECK: Supple, trachea midline. No JVD or lymphadenopathy. CARDIOVASCULAR: Regular rate and rhythm without murmurs, gallops, or rubs. RESPIRATORY: Breath sounds equal bilaterally. No accessory muscle use. GASTROINTESTINAL: Abdomen soft, non-tender, nondistended. MUSCULOSKELETAL: No cyanosis, ++ edema. BACK: Nontender without obvious deformity. No CVA tenderness. A/P Assessment and Plan IMPRESSION: 1. Respiratory insufficiency. 2. Congestive heart failure. 3. Pleural effusion. 4. Worsening renal functions. 5. Coronary artery disease status post stent placement. PLAN: Supplement 02 with oxymask Diurease with Lasix and Metolazone Aerosol nebs Cont Abx Monitor pl eff IV Solumedrol Aaron Blankenship MD April 12, 2018 18:46
[2018-04-12] MEDS: ATORVASTATIN 40 MG TAB PO SCH (20:24)
[2018-04-12] MEDS: RESP: ALBUTEROL 2.5 MG/IPRATROPIUM 0.5 MG NEB (PRN) NEB (22:26)
[2018-04-12] MEDS: MORPHINE SULFATE 2 MG/ML SYRINGE IV PUSH PRN (22:58)
[2018-04-13] VITALS (28 sets, daily range): BP systolic 135–169; BP diastolic 66–85; PULSE 60–78; RESP 16–24; TEMP 96.6–97.8; O2SAT 90–93
[2018-04-13] MEDS: ALBUMIN 25% INJ 50 ML IV SCH ×2 (03:25→15:59)
[2018-04-13] MEDS: hydrALAZINE HCL 50 MG TAB PO SCH ×3 (05:21→21:39)
[2018-04-13 06:31] LABS: AUTOMATED NEUTROPHIL # 4.7 TH/MM3 (1.8-7.7); BASOPHIL % 0.2 % (0.0-2.0); EOSINOPHIL % 0.6 % (0.0-4.0); HEMATOCRIT 22.2 % (35.0-46.0); HEMOGLOBIN 7.3 GM/DL (11.6-15.3); LYMPH % 12.6 % (9.0-44.0); LYMPHOCYTE # 0.8 TH/MM3 (1.0-4.8); MEAN CELL VOLUME 93.1 FL (80.0-100.0); MEAN CORPUSCULAR HEMOGLOBIN 30.7 PG (27.0-34.0); MEAN PLATELET VOLUME 8.5 FL (7.0-11.0); MONO % 7.2 % (0.0-8.0); MONOCYTE # 0.4 TH/MM3 (0-0.9); NEUT % 79.4 % (16.0-70.0); PLATELET COUNT 225 TH/MM3 (150-450); RED BLOOD COUNT 2.38 MIL/MM3 (4.00-5.30); RED CELL DISTRIBUTION WIDTH 17.6 % (11.6-17.2)
[2018-04-13 06:57] LABS: ALBUMIN 2.9 GM/DL (3.4-5.0); BICARBONATE 21.6 MEQ/L (21.0-32.0); CALCIUM 8.4 MG/DL (8.5-10.1); CREATININE 2.99 MG/DL (0.50-1.00); MAGNESIUM 2.3 MG/DL (1.5-2.5); PHOSPHORUS 5.3 MG/DL (2.5-4.9)
[2018-04-13] MEDS: RESP: ALBUTEROL 2.5 MG/IPRATROPIUM 0.5 MG NEB (SCH) NEB ×3 (07:27→15:35)
[2018-04-13] MEDS: INSULIN ASPART SUPPLEMENTAL SCALE SQ SCH ×4 (08:00→21:36)
[2018-04-13] MEDS: INSULIN DETEMIR 100 UNITS/ML VIAL SQ SCH ×2 (09:00→21:37)
[2018-04-13] MEDS: BUDESONIDE-FORMOTEROL 160/4.5 MCG INHALER INH SCH ×2 (09:00→21:38)
[2018-04-13] MEDS: FUROSEMIDE 40 MG/4 ML VIAL IV PUSH SCH (09:52)
[2018-04-13] MEDS: SODIUM CHLORIDE 0.9% FLUSH 10 ML FLUSH IV FLUSH SCH ×2 (09:52→21:38)
[2018-04-13] MEDS: FERROUS SULFATE 325 MG (65 MG ELEMENTAL IRON) TAB PO SCH ×2 (09:52→21:39)
[2018-04-13] MEDS: CARVEDILOL 6.25 MG TAB PO SCH ×2 (09:52→21:39)
[2018-04-13] MEDS: ASPIRIN 81 MG CHEW TAB CHEW SCH (09:52)
[2018-04-13] MEDS: NIFEdipine 30 MG SUSTAINED RELEASE TAB PO SCH ×2 (09:53→21:39)
[2018-04-13] MEDS: CALCIUM ACETATE 667 MG CAP PO SCH ×3 (09:53→17:33)
[2018-04-13] MEDS: ISOSORBIDE MONONITRATE 60 MG CR TAB (IMDUR) PO SCH (09:53)
[2018-04-13] MEDS: METOLAZONE 5 MG TAB PO SCH ×2 (09:53→17:33)
[2018-04-13] MEDS: DOCUSATE SODIUM 50 MG/SENNA 8.6 MG TAB PO SCH ×2 (09:53→21:00)
[2018-04-13] MEDS: guaiFENesin E.R. 600 MG TAB PO SCH ×2 (09:53→21:38)
[2018-04-13] MEDS: PRASUGREL 10 MG TAB PO SCH (09:53)
[2018-04-13] MEDS: FUROSEMIDE 100 MG/10 ML VIAL IV PUSH SCH ×2 (13:15→18:00)
--- NOTE | 2018-04-13 16:31 | HHI.NPPN ---
Subjective History of Present Illness This is a 67-year-old female known to me from before with a past medical history of ischemic heart disease, congestive heart failure with diastolic dysfunction, chronic obstructive pulmonary disease, recurrent pleural effusion, diabetes mellitus, chronic kidney disease,with advanced stage IV renal disease, who came to the hospital with a complaint of shortness of breath.Nephrology was called to see the patient because of her high BUN and creatinine. The patient has a known history of chronic kidney disease. She has been following with me and was admitted last month and at that time, her creatinine was as high as 3.0 and she was started on dialysis mainly for the fluid removal and now she came with a creatinine of 2.8. She was discharged with the serum creatinine of 2.8 to 2.9. She was taking her diuretics and according to her, she was watching her fluid and not drinking more than 40 ounces a day. Gradually, she saw her breathing has been getting worse and she has a cough with whitish sputum. She denies any chest pain. No palpitation. Additional Remarks Patient continues to report shortness of breath. Moderate to large amount of lower extremity edema upper to waist line. Diuretics increased. (Jessica Clemons) Review of Systems General Constitutional: Fatigue (Jessica Clemons) Respiratory Lungs: SOB (Jessica Clemons) Cardiovascular Cardiac: Edema, KAMARA (Jessica Clemons) Gastrointestinal GI Remarks Denies abdominal pain (Jessica Clemons) Objective Data Data Vital Signs Date Time Temp Pulse Resp B/P (MAP) Pulse Ox O2 Delivery O2 Flow Rate FiO2 04/13/18 16:00 63 04/13/18 15:00 97.6 63 22 135/68 (90) 92 04/13/18 15:00 60 04/13/18 14:00 76 04/13/18 13:00 76 04/13/18 12:00 66 04/13/18 11:00 96.6 67 20 138/66 (90) 90 04/13/18 11:00 66 04/13/18 10:00 72 04/13/18 09:00 76 04/13/18 08:00 78 04/13/18 07:20 90 Simple Mask 8.00 04/13/18 07:00 97.5 78 24 156/67 (96) 90 04/13/18 07:00 75 04/13/18 07:00 90 Partial Non-Rebreather 7.00 04/13/18 06:38 90 Partial Non-Rebreather 6.00 04/13/18 06:00 76 04/13/18 05:00 75 04/13/18 04:00 72 04/13/18 03:21 97.4 77 16 169/77 (107) 93 04/13/18 03:00 70 04/13/18 02:30 95 Partial Non-Rebreather 5.00 04/13/18 02:00 72 04/13/18 02:00 98 Partial Non-Rebreather 7.00 04/13/18 01:00 74 04/13/18 00:00 73 04/13/18 00:00 72 04/12/18 23:04 97.0 72 18 158/70 (99) 93 04/12/18 23:00 74 04/12/18 22:39 91 Simple Mask 7.00 04/12/18 22:30 94 Partial Non-Rebreather 7.00 04/12/18 22:15 84 Venturi Mask 6.00 50 04/12/18 22:00 74 04/12/18 21:00 72 04/12/18 20:15 96.9 71 19 138/63 (88) 92 04/12/18 20:15 92 Venturi Mask 6.00 50 04/12/18 20:15 70 04/12/18 20:00 68 04/12/18 19:53 92 6.00 50 04/12/18 19:00 66 04/12/18 18:00 68 04/12/18 17:00 84 (Jessica Clemons) -: 04/13/18 0517 04/13/18 0517 Tubes & Lines: Lim (Jessica Clemons) Physical Exam General Appearance: No Acute Distress, Comfortable (Jessica Clemons) Pulmonary Resp Exam: Breath Sounds Equal, No Distress, Rhonchi, Decreased Bases (Jessica Clemons) Gastrointestinal/Abdomen GI Exam: Non-Tender, Bowel Sounds Present (Jessica Clemons) Genitourinary Exam: Flank Non-Tender (Jessica Clemons) Integumentary Skin Exam: Clear, Warm (Jessica Clemons) Extremeties Extremities Exam: Moderate Edema, Pitting Edema, Dependent Edema (Jessica Clemons) Neurologic Neuro Exam: Alert, Awake, Oriented (Jessica Clemons) Psychiatric Psych Exam: Appropriate Responses (Jessica Clemons) Assessment/Plan Discussed Condition With: Patient Assessment Summary: Fluid/Volume Overload Problem List: (1) Chronic kidney disease (CKD) stage G4/A1, severely decreased glomerular filtration rate (GFR) between 15-29 mL/min/1.73 square meter and albuminuria creatinine ratio less than 30 mg/g ICD Codes: N18.4 - Chronic kidney disease, stage 4 (severe) Plan: Patient has chronic kidney disease stage IV with a GFR of 16 to 17. Plan Creatinine at 2.99 from 3.03 Edema persists lasix 80 mg increased to TID Continue metalozone 5 mg BID Diiurel given X 1 Albumin every 12 hours. Fluid restriction Avoid nephrotoxins Patient may need dialysis in the future this has been discussed with patient by Dr. Toro (2) Diastolic CHF, acute ICD Codes: I50.31 - Acute diastolic (congestive) heart failure Plan: continue lasix (Jessica Clemons) Problem List: (1) Chronic kidney disease (CKD) stage G4/A1, severely decreased glomerular filtration rate (GFR) between 15-29 mL/min/1.73 square meter and albuminuria creatinine ratio less than 30 mg/g ICD Codes: N18.4 - Chronic kidney disease, stage 4 (severe) Plan: Patient has chronic kidney disease stage IV with a GFR of 16 to 17. Plan Creatinine at 2.99 from 3.03 Edema persists lasix 80 mg increased to TID Continue metalozone 5 mg BID Diiurel given X 1 Albumin every 12 hours. Fluid restriction Avoid nephrotoxins Patient may need dialysis in the future this has been discussed with patient by Dr. Toro. Patient seen and examined, agree with above. Diuretic increased, if edema not better, will consider dialysis. (2) Diastolic CHF, acute ICD Codes: I50.31 - Acute diastolic (congestive) heart failure Plan: continue lasix (Flavio Toro MD) Jessica Clemons April 13, 2018 16:31 Flavio Toro MD April 13, 2018 20:35
[2018-04-13] MEDS: ACETAMINOPHEN/HYDROcodone 325 MG/5 MG TAB PO PRN ×2 (17:33→23:52)
--- NOTE | 2018-04-13 18:24 | HHI.PR ---
Subjective Remarks Patient on partial rebreathing mask 50% with 7 L of oxygen She answer simple question correctly Discussed with family Objective Vitals Vital Signs Date Time Temp Pulse Resp B/P (MAP) Pulse Ox O2 Delivery O2 Flow Rate FiO2 04/13/18 16:00 63 04/13/18 15:00 97.6 63 22 135/68 (90) 92 04/13/18 15:00 60 04/13/18 14:00 76 04/13/18 13:00 76 04/13/18 12:00 66 04/13/18 11:00 96.6 67 20 138/66 (90) 90 04/13/18 11:00 66 04/13/18 10:00 72 04/13/18 09:00 76 04/13/18 08:00 78 04/13/18 07:20 90 Simple Mask 8.00 04/13/18 07:00 97.5 78 24 156/67 (96) 90 04/13/18 07:00 75 04/13/18 07:00 90 Partial Non-Rebreather 7.00 04/13/18 06:38 90 Partial Non-Rebreather 6.00 04/13/18 06:00 76 04/13/18 05:00 75 04/13/18 04:00 72 04/13/18 03:21 97.4 77 16 169/77 (107) 93 04/13/18 03:00 70 04/13/18 02:30 95 Partial Non-Rebreather 5.00 04/13/18 02:00 72 04/13/18 02:00 98 Partial Non-Rebreather 7.00 04/13/18 01:00 74 04/13/18 00:00 73 04/13/18 00:00 72 04/12/18 23:04 97.0 72 18 158/70 (99) 93 04/12/18 23:00 74 04/12/18 22:39 91 Simple Mask 7.00 04/12/18 22:30 94 Partial Non-Rebreather 7.00 04/12/18 22:15 84 Venturi Mask 6.00 50 04/12/18 22:00 74 04/12/18 21:00 72 04/12/18 20:15 96.9 71 19 138/63 (88) 92 04/12/18 20:15 92 Venturi Mask 6.00 50 04/12/18 20:15 70 04/12/18 20:00 68 04/12/18 19:53 92 6.00 50 04/12/18 19:00 66 I/O 04/12/18 04/12/18 04/12/18 04/13/18 04/13/18 04/13/18 06:59 14:59 22:59 06:59 14:59 22:59 Intake Total 480 ml 560 ml 450 ml 380 ml Output Total 800 ml 600 ml 850 ml 1100 ml Balance -320 ml -40 ml -400 ml -720 ml Intake Oral 480 ml 560 ml 400 ml 380 ml IV Total 50 ml Output Urine Total 800 ml 600 ml 850 ml 1100 ml Result Diagram: 04/13/1851604/13/18516 Objective Remarks GENERAL: This is a well-nourished, well-developed patient, in no apparent distress. CARDIOVASCULAR: RRR, no gallops, or rubs. RESPIRATORY: Diminished breath sounds with few wheezing bilaterally GASTROINTESTINAL: Abdomen soft, non-tender, nondistended. Positive bowel sounds MUSCULOSKELETAL: Extremities without clubbing, cyanosis, +3 edema. Pedal pulses appreciated NEUROLOGICAL: Awake and alert. Moves all extremity. Normal speech.no focal neurological deficit A/P Problem List: (1) COPD (chronic obstructive pulmonary disease) ICD Code: J44.9 - Chronic obstructive pulmonary disease, unspecified (2) CHF (congestive heart failure) ICD Code: I50.9 - Heart failure, unspecified (3) Hypoxia ICD Code: R09.02 - Hypoxemia (4) Hyperkalemia ICD Code: E87.5 - Hyperkalemia (5) Anemia ICD Code: D64.9 - Anemia, unspecified (6) DM (diabetes mellitus) ICD Code: E11.9 - Type 2 diabetes mellitus without complications Assessment and Plan 04/13: Still on partial rebreather mask 50% 7 L oxygen, continue current care continue DuoNeb, pulmonology following A /P: //COPD: Chronic Respiratory Failure w/ Acute Exacerbation, //Hypoxemic respiratory failure +wheezing/respiratory distress, s/p Solu-Medrol w/ improvement. Continue Solu- Medrol, Symbicort, DuoNeb, Mucinex. Pt home Nebulizer broken will need replacement on return home. = Shortness of breath improving. Continue diuresis, treatment for COPD. = 04/11. Discussed with nephrology. Increase diuretics. Appreciate assistance. = 16. Stable respiratory status. Continues on 50% FiO2. Continue diuretics as per nephrology. Appreciate assistance. //Left eye visual deficit. 2 day history without any pain. She says this appears to be improving somewhat. = CT head negative for acute process. Ophthalmology consult pending. = Patient will need follow-up with ophthalmology as outpatient for laser ablation. //Anemia. 7.7. Likely secondary to anemia of chronic kidney disease. Consult nephrology as patient may require erythropoietin.transfuse as needed for Hgb <7 or if hemodynamically unstable. = 04/11. Hemoglobin 7.2. Discussed with nephrology. Will start erythropoietin. Appreciate assistance. = 04/12. Hemoglobin continues stable. Status post urethral [place]. Appreciate nephrology assistance. // CHF: Acute on Chronic. Diastolic. Echo 01/03/18 w/ EF 55-60%, CXR w/ interstitial edema, h/o pleural effusion LLL w/ continued effusion, small to moderate right effusion, s/p Lasix in ER, will continue w/ diuresis Lasix 40mg IV bid, monitor I/O. = cont fluid restriction. Strict intake and output. Continue to monitor // Hyperkalemia: K+ 6.4, s/p Ca/Insulin/Kayexalate in ER, repeat K+ tonight, additional treatment as needed. Telemetry. = Potassium 5.5 expect continued improving on increased dose of IV Lasix. = 04/12. Potassium 5.1. Improved. Continue to monitor. // DM: Sliding scale w/ Accu-Cheks, resume home Levemir. = Increase to moderate sliding scale. = 04/12. Glucose acceptable on increase sliding scale. Continue to monitor. // DVT Prophylaxis: SCD/Teds Discharge Planning Pending improvement. Still on 50% FiO2. Will need SNF/rehab on discharge. = Will need follow-up with ophthalmology for laser ablation =case management following. Appreciate assistance. Problem Qualifiers (1) CHF (congestive heart failure): Qualified Codes: I50.9 - Heart failure, unspecified (2) Anemia: Qualified Codes: D64.9 - Anemia, unspecified Mukesh Arana MD April 13, 2018 18:24
--- NOTE | 2018-04-13 20:33 | HHI.PR ---
Subjective Remarks 67 YOWF with COPD,Hypoxia,CHF,CKD On Oxymask being diureased Increase in Cr no CP Breathing better today Objective Vital Signs Vital Signs Date Time Temp Pulse Resp B/P (MAP) Pulse Ox O2 Delivery O2 Flow Rate FiO2 04/13/18 19:48 97.7 71 23 148/72 (97) 91 04/13/18 18:00 62 04/13/18 17:00 64 04/13/18 16:00 63 04/13/18 15:00 97.6 63 22 135/68 (90) 92 04/13/18 15:00 60 04/13/18 14:00 76 04/13/18 13:00 76 04/13/18 12:00 66 04/13/18 11:00 96.6 67 20 138/66 (90) 90 04/13/18 11:00 66 04/13/18 10:00 72 04/13/18 09:00 76 04/13/18 08:00 78 04/13/18 07:20 90 Simple Mask 8.00 04/13/18 07:00 97.5 78 24 156/67 (96) 90 04/13/18 07:00 75 04/13/18 07:00 90 Partial Non-Rebreather 7.00 04/13/18 06:38 90 Partial Non-Rebreather 6.00 04/13/18 06:00 76 04/13/18 05:00 75 04/13/18 04:00 72 04/13/18 03:21 97.4 77 16 169/77 (107) 93 04/13/18 03:00 70 04/13/18 02:30 95 Partial Non-Rebreather 5.00 04/13/18 02:00 72 04/13/18 02:00 98 Partial Non-Rebreather 7.00 04/13/18 01:00 74 04/13/18 00:00 73 04/13/18 00:00 72 04/12/18 23:04 97.0 72 18 158/70 (99) 93 04/12/18 23:00 74 04/12/18 22:39 91 Simple Mask 7.00 04/12/18 22:30 94 Partial Non-Rebreather 7.00 04/12/18 22:15 84 Venturi Mask 6.00 50 04/12/18 22:00 74 04/12/18 21:00 72 I/O 04/12/18 04/12/18 04/12/18 04/13/18 04/13/18 04/13/18 07:00 15:00 23:00 07:00 15:00 23:00 Intake Total 480 ml 560 ml 450 ml 380 ml Output Total 800 ml 600 ml 850 ml 1100 ml Balance -320 ml -40 ml -400 ml -720 ml Intake Oral 480 ml 560 ml 400 ml 380 ml IV Total 50 ml Output Urine Total 800 ml 600 ml 850 ml 1100 ml Result Diagram: 04/13/1851604/13/18516 Objective Remarks GENERAL: MBMNWF, mild sob SKIN: Warm and dry. HEAD: Normocephalic. EYES: No scleral icterus. No injection or drainage. NECK: Supple, trachea midline. No JVD or lymphadenopathy. CARDIOVASCULAR: Regular rate and rhythm without murmurs, gallops, or rubs. RESPIRATORY: Breath sounds equal bilaterally. No accessory muscle use. GASTROINTESTINAL: Abdomen soft, non-tender, nondistended. MUSCULOSKELETAL: No cyanosis, ++ edema. BACK: Nontender without obvious deformity. No CVA tenderness. A/P Assessment and Plan IMPRESSION: 1. Respiratory insufficiency. 2. Congestive heart failure. 3. Pleural effusion. 4. Worsening renal functions. 5. Coronary artery disease status post stent placement. PLAN: Supplement 02 with oxymask Diurease with Lasix and Metolazone Aerosol nebs Cont Abx Monitor pl eff Cont Steroids Aaron Blankenship MD April 13, 2018 20:33
[2018-04-13] MEDS: ATORVASTATIN 40 MG TAB PO SCH (21:39)
[2018-04-14] VITALS (25 sets, daily range): BP systolic 140–164; BP diastolic 66–72; PULSE 62–87; RESP 20–22; TEMP 97.4–98; O2SAT 90–93
[2018-04-14] MEDS: ALBUMIN 25% INJ 50 ML IV SCH ×2 (04:05→16:55)
[2018-04-14] MEDS: hydrALAZINE HCL 50 MG TAB PO SCH ×3 (06:09→20:47)
[2018-04-14] MEDS: INSULIN ASPART SUPPLEMENTAL SCALE SQ SCH ×4 (08:00→20:48)
[2018-04-14] MEDS: INSULIN DETEMIR 100 UNITS/ML VIAL SQ SCH ×2 (09:00→20:47)
[2018-04-14] MEDS: DOCUSATE SODIUM 50 MG/SENNA 8.6 MG TAB PO SCH ×2 (09:00→20:46)
[2018-04-14] MEDS: PRASUGREL 10 MG TAB PO SCH (09:01)
[2018-04-14] MEDS: ISOSORBIDE MONONITRATE 60 MG CR TAB (IMDUR) PO SCH (09:01)
[2018-04-14] MEDS: guaiFENesin E.R. 600 MG TAB PO SCH ×2 (09:01→20:47)
[2018-04-14] MEDS: FERROUS SULFATE 325 MG (65 MG ELEMENTAL IRON) TAB PO SCH ×2 (09:01→20:46)
[2018-04-14] MEDS: NIFEdipine 30 MG SUSTAINED RELEASE TAB PO SCH ×2 (09:02→20:47)
[2018-04-14] MEDS: CARVEDILOL 6.25 MG TAB PO SCH ×2 (09:02→20:46)
[2018-04-14] MEDS: ASPIRIN 81 MG CHEW TAB CHEW SCH (09:02)
[2018-04-14] MEDS: SODIUM CHLORIDE 0.9% FLUSH 10 ML FLUSH IV FLUSH SCH ×2 (09:03→20:46)
[2018-04-14] MEDS: BUDESONIDE-FORMOTEROL 160/4.5 MCG INHALER INH SCH ×2 (09:03→20:49)
[2018-04-14] MEDS: FUROSEMIDE 100 MG/10 ML VIAL IV PUSH SCH ×3 (09:03→17:10)
[2018-04-14] MEDS: CALCIUM ACETATE 667 MG CAP PO SCH ×3 (09:22→17:10)
[2018-04-14] MEDS: METOLAZONE 5 MG TAB PO SCH ×2 (09:22→17:27)
--- NOTE | 2018-04-14 11:16 | HHI.NPPN ---
Subjective History of Present Illness This is a 67-year-old female known to me from before with a past medical history of ischemic heart disease, congestive heart failure with diastolic dysfunction, chronic obstructive pulmonary disease, recurrent pleural effusion, diabetes mellitus, chronic kidney disease,with advanced stage IV renal disease, who came to the hospital with a complaint of shortness of breath.Nephrology was called to see the patient because of her high BUN and creatinine. The patient has a known history of chronic kidney disease. She has been following with me and was admitted last month and at that time, her creatinine was as high as 3.0 and she was started on dialysis mainly for the fluid removal and now she came with a creatinine of 2.8. She was discharged with the serum creatinine of 2.8 to 2.9. She was taking her diuretics and according to her, she was watching her fluid and not drinking more than 40 ounces a day. Gradually, she saw her breathing has been getting worse and she has a cough with whitish sputum. She denies any chest pain. No palpitation. Additional Remarks Reports that she is feeling a little better today. Shortness of breath is improving. Edema slightly improved. Weight down. (Jessica Clemons) Review of Systems General Constitutional: Fatigue (Jessica Clemons) Respiratory Lungs: SOB Respiratory Remarks improved (Jessica Clemons) Cardiovascular Cardiac: Edema, KAMARA (Jessica Clemons) Gastrointestinal GI Remarks Denies abdominal pain (Jessica Clemons) Objective Data Data Vital Signs Date Time Temp Pulse Resp B/P (MAP) Pulse Ox O2 Delivery O2 Flow Rate FiO2 04/14/18 11:09 65 04/14/18 10:40 65 04/14/18 09:00 62 04/14/18 08:33 92 Partial Non-Rebreather 10.00 50 04/14/18 08:08 98.0 68 20 144/72 (96) 92 04/14/18 08:08 68 04/14/18 06:00 66 04/14/18 05:00 70 04/14/18 04:07 97.6 67 22 140/69 (92) 90 04/14/18 03:51 68 04/14/18 03:00 72 5/17/18 02:00 72 04/14/18 01:00 70 04/14/18 00:50 20 04/14/18 00:04 76 04/13/18 23:52 97.8 76 24 153/85 (107) 90 04/13/18 23:00 70 04/13/18 22:00 74 04/13/18 21:00 72 04/13/18 20:21 67 04/13/18 19:48 97.7 71 23 148/72 (97) 91 04/13/18 19:48 Simple Mask 8.00 50 04/13/18 19:00 68 04/13/18 18:00 62 04/13/18 17:00 64 04/13/18 16:00 63 04/13/18 15:00 97.6 63 22 135/68 (90) 92 04/13/18 15:00 60 04/13/18 14:00 76 04/13/18 13:00 76 04/13/18 12:00 67 (Jessica Clemons) -: 04/13/18 0517 04/13/18 0517 Imaging Last Impressions Head CT 04/10/18 0000 Signed Impressions: Service Date/Time: Tuesday, April 10, 2018 18:05 - CONCLUSION: No acute intracranial disease. Je Fletcher MD Chest X-Ray 04/09/18 1731 Signed Impressions: Service Date/Time: Monday, April 09, 2018 17:45 - CONCLUSION: 1. Increased interstitial markings bilaterally suggesting pulmonary edema. 2. There is continued consolidation left lower lung suggestive of infiltrate and effusion. 3. There is a small to moderate right-sided effusion David Lezama MD Tubes & Lines: Lim (Jessica Clemons) Physical Exam General Appearance: No Acute Distress, Comfortable (Jessica Clemons) Pulmonary Resp Exam: Breath Sounds Equal, No Distress, Rhonchi, Decreased Bases (Jessica Clmeons) Gastrointestinal/Abdomen GI Exam: Non-Tender, Bowel Sounds Present (Jessica Clemons) Genitourinary Exam: Flank Non-Tender (Jessica Celmons) Integumentary Skin Exam: Clear, Warm (Jessica Clemons) Extremeties Extremities Exam: Moderate Edema, Pitting Edema, Dependent Edema (Jessica Clemons) Neurologic Neuro Exam: Alert, Awake, Oriented (Jessica Clemons) Psychiatric Psych Exam: Appropriate Responses (Jessica Clemons) Assessment/Plan Discussed Condition With: Patient Assessment Summary: Fluid/Volume Overload Problem List: (1) Chronic kidney disease (CKD) stage G4/A1, severely decreased glomerular filtration rate (GFR) between 15-29 mL/min/1.73 square meter and albuminuria creatinine ratio less than 30 mg/g ICD Codes: N18.4 - Chronic kidney disease, stage 4 (severe) Plan: Patient has chronic kidney disease stage IV with a GFR of 16 to 17. Plan Edema persists lasix 80 mg increased to TID yesterday Continue metalozone 5 mg BID Albumin every 12 hours. Fluid restriction in place Shortness of breath and edema better today and weight is down. Avoid nephrotoxins Patient may need dialysis in the future this has been discussed with patient by Dr. Toro. Labs in AM (2) Diastolic CHF, acute ICD Codes: I50.31 - Acute diastolic (congestive) heart failure Plan: continue lasix (Jessica Clemons) Problem List: (1) Chronic kidney disease (CKD) stage G4/A1, severely decreased glomerular filtration rate (GFR) between 15-29 mL/min/1.73 square meter and albuminuria creatinine ratio less than 30 mg/g ICD Codes: N18.4 - Chronic kidney disease, stage 4 (severe) Plan: Patient has chronic kidney disease stage IV with a GFR of 16 to 17. Plan Edema persists lasix 80 mg increased to TID yesterday Continue metalozone 5 mg BID Albumin every 12 hours. Fluid restriction in place Shortness of breath and edema better today and weight is down. Avoid nephrotoxins Patient may need dialysis in the future this has been discussed with patient by Dr. Toro. Labs in AM Patient seen and examined, agree with above. Increase diuretics, follow the urine out put and BMP. (2) Diastolic CHF, acute ICD Codes: I50.31 - Acute diastolic (congestive) heart failure Plan: continue lasix (Flavio Toro MD) Jessica Clemons April 14, 2018 11:16 Flavio Toro MD April 18, 2018 19:09
[2018-04-14] MEDS: ACETAMINOPHEN/HYDROcodone 325 MG/5 MG TAB PO PRN ×2 (13:30→20:47)
--- NOTE | 2018-04-14 18:13 | HHI.PR ---
Subjective Remarks Patient looks slightly better today even though she still on the rebreathing mask 50% Family at the bedside, she is awake alert answering simple question Objective Vitals Vital Signs Date Time Temp Pulse Resp B/P (MAP) Pulse Ox O2 Delivery O2 Flow Rate FiO2 04/14/18 17:49 98.0 64 20 151/68 (95) 91 04/14/18 17:14 67 04/14/18 15:36 97.4 68 22 161/72 (101) 93 04/14/18 15:14 64 04/14/18 14:50 16 04/14/18 14:23 62 04/14/18 13:15 64 04/14/18 12:05 68 04/14/18 11:46 98.0 69 22 158/66 (96) 92 04/14/18 11:09 65 04/14/18 10:40 65 04/14/18 09:00 62 04/14/18 08:33 92 Partial Non-Rebreather 10.00 50 04/14/18 08:08 98.0 68 20 144/72 (96) 92 04/14/18 08:08 68 04/14/18 06:00 66 04/14/18 05:00 70 04/14/18 04:07 97.6 67 22 140/69 (92) 90 04/14/18 03:51 68 04/14/18 03:00 72 04/14/18 02:00 72 04/14/18 01:00 70 04/14/18 00:04 76 04/13/18 23:52 97.8 76 24 153/85 (107) 90 04/13/18 23:00 70 04/13/18 22:00 74 04/13/18 21:00 72 04/13/18 20:21 67 04/13/18 19:48 97.7 71 23 148/72 (97) 91 04/13/18 19:48 Simple Mask 8.00 50 04/13/18 19:00 68 I/O 04/13/18 04/13/18 04/13/18 04/14/18 04/14/18 04/14/18 07:00 15:00 23:00 07:00 15:00 23:00 Intake Total 450 ml 380 ml 240 ml 500 ml Output Total 850 ml 1100 ml 1000 ml 1500 ml Balance -400 ml -720 ml -760 ml -1000 ml Intake Oral 400 ml 380 ml 240 ml 500 ml IV Total 50 ml Output Urine Total 850 ml 1100 ml 1000 ml 1500 ml # Bowel Movements 1 Result Diagram: 04/13/1851604/13/18516 Objective Remarks GENERAL: This is a well-nourished, well-developed patient, in no apparent distress. CARDIOVASCULAR: RRR, no gallops, or rubs. RESPIRATORY: Diminished breath sounds with few wheezing bilaterally GASTROINTESTINAL: Abdomen soft, non-tender, nondistended. Positive bowel sounds MUSCULOSKELETAL: Extremities without clubbing, cyanosis, +3 edema. Pedal pulses appreciated NEUROLOGICAL: Awake and alert. Moves all extremity. Normal speech.no focal neurological deficit A/P Problem List: (1) COPD (chronic obstructive pulmonary disease) ICD Code: J44.9 - Chronic obstructive pulmonary disease, unspecified (2) CHF (congestive heart failure) ICD Code: I50.9 - Heart failure, unspecified (3) Hypoxia ICD Code: R09.02 - Hypoxemia (4) Hyperkalemia ICD Code: E87.5 - Hyperkalemia (5) Anemia ICD Code: D64.9 - Anemia, unspecified (6) DM (diabetes mellitus) ICD Code: E11.9 - Type 2 diabetes mellitus without complications Assessment and Plan 04/13: Still on partial rebreather mask 50% 7 L oxygen, continue current care continue DuoNeb, pulmonology following 04/14: Monitoring clinical improvement, appreciate pulmonology and nephrology follow-up, still on rebreathing mask A /P: //COPD: Chronic Respiratory Failure w/ Acute Exacerbation, //Hypoxemic respiratory failure +wheezing/respiratory distress, s/p Solu-Medrol w/ improvement. Continue Solu- Medrol, Symbicort, DuoNeb, Mucinex. Pt home Nebulizer broken will need replacement on return home. = Shortness of breath improving. Continue diuresis, treatment for COPD. = 04/11. Discussed with nephrology. Increase diuretics. Appreciate assistance. = 16. Stable respiratory status. Continues on 50% FiO2. Continue diuretics as per nephrology. Appreciate assistance. //Left eye visual deficit. 2 day history without any pain. She says this appears to be improving somewhat. = CT head negative for acute process. Ophthalmology consult pending. = Patient will need follow-up with ophthalmology as outpatient for laser ablation. //Anemia. 7.7. Likely secondary to anemia of chronic kidney disease. Consult nephrology as patient may require erythropoietin.transfuse as needed for Hgb <7 or if hemodynamically unstable. = 04/11. Hemoglobin 7.2. Discussed with nephrology. Will start erythropoietin. Appreciate assistance. = 04/12. Hemoglobin continues stable. Status post urethral [place]. Appreciate nephrology assistance. // CHF: Acute on Chronic. Diastolic. Echo 01/03/18 w/ EF 55-60%, CXR w/ interstitial edema, h/o pleural effusion LLL w/ continued effusion, small to moderate right effusion, s/p Lasix in ER, will continue w/ diuresis Lasix 40mg IV bid, monitor I/O. = cont fluid restriction. Strict intake and output. Continue to monitor // Hyperkalemia: K+ 6.4, s/p Ca/Insulin/Kayexalate in ER, repeat K+ tonight, additional treatment as needed. Telemetry. = Potassium 5.5 expect continued improving on increased dose of IV Lasix. = 04/12. Potassium 5.1. Improved. Continue to monitor. // DM: Sliding scale w/ Accu-Cheks, resume home Levemir. = Increase to moderate sliding scale. = 04/12. Glucose acceptable on increase sliding scale. Continue to monitor. // DVT Prophylaxis: SCD/Teds Discharge Planning Pending improvement. Still on 50% FiO2. Will need SNF/rehab on discharge. = Will need follow-up with ophthalmology for laser ablation =case management following. Appreciate assistance. Problem Qualifiers (1) CHF (congestive heart failure): Qualified Codes: I50.9 - Heart failure, unspecified (2) Anemia: Qualified Codes: D64.9 - Anemia, unspecified Mukesh Arana MD April 14, 2018 18:13
--- NOTE | 2018-04-14 19:00 | HHI.PR ---
Subjective Remarks 67 YOWF with COPD,Hypoxia,CHF,CKD On Oxymask being diureased Increase in Cr no CP Has mild sob Objective Vital Signs Vital Signs Date Time Temp Pulse Resp B/P (MAP) Pulse Ox O2 Delivery O2 Flow Rate FiO2 04/14/18 18:13 68 04/14/18 17:49 98.0 64 20 151/68 (95) 91 04/14/18 17:14 67 04/14/18 15:36 97.4 68 22 161/72 (101) 93 04/14/18 15:14 64 04/14/18 14:50 16 04/14/18 14:23 62 04/14/18 13:15 64 04/14/18 12:05 68 04/14/18 11:46 98.0 69 22 158/66 (96) 92 04/14/18 11:09 65 04/14/18 10:40 65 04/14/18 09:00 62 04/14/18 08:33 92 Partial Non-Rebreather 10.00 50 04/14/18 08:08 98.0 68 20 144/72 (96) 92 04/14/18 08:08 68 04/14/18 06:00 66 04/14/18 05:00 70 04/14/18 04:07 97.6 67 22 140/69 (92) 90 04/14/18 03:51 68 04/14/18 03:00 72 04/14/18 02:00 72 04/14/18 01:00 70 04/14/18 00:04 76 04/13/18 23:52 97.8 76 24 153/85 (107) 90 04/13/18 23:00 70 04/13/18 22:00 74 04/13/18 21:00 72 04/13/18 20:21 67 04/13/18 19:48 97.7 71 23 148/72 (97) 91 04/13/18 19:48 Simple Mask 8.00 50 04/13/18 19:00 68 I/O 04/13/18 04/13/18 04/13/18 04/14/18 04/14/18 04/14/18 07:00 15:00 23:00 07:00 15:00 23:00 Intake Total 450 ml 380 ml 240 ml 500 ml Output Total 850 ml 1100 ml 1000 ml 1500 ml Balance -400 ml -720 ml -760 ml -1000 ml Intake Oral 400 ml 380 ml 240 ml 500 ml IV Total 50 ml Output Urine Total 850 ml 1100 ml 1000 ml 1500 ml # Bowel Movements 1 Result Diagram: 04/13/1851604/13/18516 Objective Remarks GENERAL: MBMNWF, mild sob SKIN: Warm and dry. HEAD: Normocephalic. EYES: No scleral icterus. No injection or drainage. NECK: Supple, trachea midline. No JVD or lymphadenopathy. CARDIOVASCULAR: Regular rate and rhythm without murmurs, gallops, or rubs. RESPIRATORY: Breath sounds equal bilaterally. No accessory muscle use. GASTROINTESTINAL: Abdomen soft, non-tender, nondistended. MUSCULOSKELETAL: No cyanosis, ++ edema. BACK: Nontender without obvious deformity. No CVA tenderness. A/P Assessment and Plan IMPRESSION: 1. Respiratory insufficiency. 2. Congestive heart failure. 3. Pleural effusion. 4. Worsening renal functions. 5. Coronary artery disease status post stent placement. PLAN: Supplement 02 with oxymask Diurease . Aerosol nebs 2 2 hrs prn Cont Abx Monitor pl eff Cont Steroids Aaron Blankenship MD April 14, 2018 19:00
[2018-04-14] MEDS: RESP: ALBUTEROL 2.5 MG/IPRATROPIUM 0.5 MG NEB (PRN) NEB (19:03)
[2018-04-14] MEDS: ATORVASTATIN 40 MG TAB PO SCH (20:47)
[2018-04-15] VITALS (25 sets, daily range): BP systolic 145–185; BP diastolic 71–79; PULSE 62–77; RESP 18–22; TEMP 97.6–98.5; O2SAT 92–97
[2018-04-15] MEDS: RESP: ALBUTEROL 2.5 MG/IPRATROPIUM 0.5 MG NEB (PRN) NEB ×3 (00:16→09:10)
[2018-04-15] MEDS: MORPHINE SULFATE 2 MG/ML SYRINGE IV PUSH PRN (01:11)
[2018-04-15] MEDS: ALBUMIN 25% INJ 50 ML IV SCH ×2 (04:14→15:19)
[2018-04-15] MEDS: hydrALAZINE HCL 50 MG TAB PO SCH ×3 (06:10→20:57)
[2018-04-15 07:25] LABS: AUTOMATED NEUTROPHIL # 3.9 TH/MM3 (1.8-7.7); BASOPHIL % 0.4 % (0.0-2.0); EOSINOPHIL # 0.1 TH/MM3 (0-0.4); EOSINOPHIL % 1.1 % (0.0-4.0); HEMATOCRIT 21.2 % (35.0-46.0); HEMOGLOBIN 7.1 GM/DL (11.6-15.3); LYMPH % 14.3 % (9.0-44.0); LYMPHOCYTE # 0.7 TH/MM3 (1.0-4.8); MEAN CELL VOLUME 94.7 FL (80.0-100.0); MEAN CORPUSCULAR HEMOGLOBIN 31.5 PG (27.0-34.0); MEAN CORPUSCULAR HGB CONC 33.2 % (32.0-36.0); MEAN PLATELET VOLUME 8.6 FL (7.0-11.0); MONO % 6.7 % (0.0-8.0); MONOCYTE # 0.3 TH/MM3 (0-0.9); NEUT % 77.5 % (16.0-70.0); PLATELET COUNT 194 TH/MM3 (150-450); RED BLOOD COUNT 2.24 MIL/MM3 (4.00-5.30); RED CELL DISTRIBUTION WIDTH 16.7 % (11.6-17.2); WHITE BLOOD COUNT 5.1 TH/MM3 (4.0-11.0)
[2018-04-15 07:47] LABS: BICARBONATE 22.7 MEQ/L (21.0-32.0); CALCIUM 8.8 MG/DL (8.5-10.1)
[2018-04-15] MEDS: guaiFENesin E.R. 600 MG TAB PO SCH ×2 (08:36→20:53)
[2018-04-15] MEDS: DOCUSATE SODIUM 50 MG/SENNA 8.6 MG TAB PO SCH ×2 (08:36→20:53)
[2018-04-15] MEDS: CALCIUM ACETATE 667 MG CAP PO SCH ×3 (08:36→17:02)
[2018-04-15] MEDS: CARVEDILOL 6.25 MG TAB PO SCH ×2 (08:36→20:53)
[2018-04-15] MEDS: PRASUGREL 10 MG TAB PO SCH (08:36)
[2018-04-15] MEDS: INSULIN ASPART SUPPLEMENTAL SCALE SQ SCH ×4 (08:37→20:54)
[2018-04-15] MEDS: BUDESONIDE-FORMOTEROL 160/4.5 MCG INHALER INH SCH ×2 (08:37→20:53)
[2018-04-15] MEDS: ISOSORBIDE MONONITRATE 60 MG CR TAB (IMDUR) PO SCH (08:37)
[2018-04-15] MEDS: ASPIRIN 81 MG CHEW TAB CHEW SCH (08:37)
[2018-04-15] MEDS: NIFEdipine 30 MG SUSTAINED RELEASE TAB PO SCH ×2 (08:37→20:57)
[2018-04-15] MEDS: FERROUS SULFATE 325 MG (65 MG ELEMENTAL IRON) TAB PO SCH ×2 (08:37→20:53)
[2018-04-15] MEDS: SODIUM CHLORIDE 0.9% FLUSH 10 ML FLUSH IV FLUSH SCH ×2 (08:38→20:54)
[2018-04-15] MEDS: FUROSEMIDE 100 MG/10 ML VIAL IV PUSH SCH ×3 (08:38→17:02)
[2018-04-15] MEDS: INSULIN DETEMIR 100 UNITS/ML VIAL SQ SCH ×2 (09:22→20:53)
[2018-04-15] MEDS: METOLAZONE 5 MG TAB PO SCH ×2 (09:27→18:11)
--- NOTE | 2018-04-15 12:49 | HHI.NPPN ---
Subjective History of Present Illness This is a 67-year-old female known to me from before with a past medical history of ischemic heart disease, congestive heart failure with diastolic dysfunction, chronic obstructive pulmonary disease, recurrent pleural effusion, diabetes mellitus, chronic kidney disease,with advanced stage IV renal disease, who came to the hospital with a complaint of shortness of breath.Nephrology was called to see the patient because of her high BUN and creatinine. The patient has a known history of chronic kidney disease. She has been following with me and was admitted last month and at that time, her creatinine was as high as 3.0 and she was started on dialysis mainly for the fluid removal and now she came with a creatinine of 2.8. She was discharged with the serum creatinine of 2.8 to 2.9. She was taking her diuretics and according to her, she was watching her fluid and not drinking more than 40 ounces a day. Gradually, she saw her breathing has been getting worse and she has a cough with whitish sputum. She denies any chest pain. No palpitation. Additional Remarks Oxygen needs have increased. Shortness of breath unchanged. Edema is improving. (Jessica Clemosn) Review of Systems General Constitutional: Fatigue (Jessica Clemons) Respiratory Lungs: SOB Respiratory Remarks improved (Jessica Clemons) Cardiovascular Cardiac: Edema, KAMARA (Jessica Clemons) Gastrointestinal GI Remarks Denies abdominal pain (Jessica Clemons) Objective Data Data Vital Signs Date Time Temp Pulse Resp B/P (MAP) Pulse Ox O2 Delivery O2 Flow Rate FiO2 04/15/18 11:09 98.2 69 19 165/79 (107) 95 04/15/18 11:00 70 04/15/18 10:00 68 04/15/18 09:09 97 Partial Rebreather 15.00 04/15/18 09:00 74 04/15/18 08:29 98.0 77 22 153/71 (98) 95 04/15/18 08:29 97 Partial Non-Rebreather 15.00 04/15/18 08:00 72 04/15/18 07:00 70 04/15/18 04:00 66 04/15/18 04:00 97.8 69 20 156/71 (99) 92 04/15/18 03:59 97 Partial Rebreather 12.00 04/15/18 00:27 Partial Non-Rebreather 15.00 04/15/18 00:00 68 04/15/18 00:00 97.6 69 22 160/75 (103) 93 04/14/18 23:00 Simple Mask 15.00 04/14/18 23:00 92 Simple Mask 15.00 04/14/18 20:00 69 04/14/18 20:00 97.4 69 22 164/69 (100) 92 04/14/18 20:00 Simple Mask 10.00 04/14/18 19:05 92 Simple Mask 12.00 04/14/18 18:13 68 04/14/18 17:49 98.0 64 20 151/68 (95) 91 04/14/18 17:14 67 04/14/18 15:36 97.4 68 22 161/72 (101) 93 04/14/18 15:14 64 04/14/18 14:50 16 04/14/18 14:23 62 04/14/18 13:15 64 (Jessica Clemons) -: 04/15/18 0630 04/15/18 0630 Imaging Last Impressions Head CT 04/10/18 0000 Signed Impressions: Service Date/Time: Tuesday, April 10, 2018 18:05 - CONCLUSION: No acute intracranial disease. eJ Fletcher MD Chest X-Ray 04/09/18 1731 Signed Impressions: Service Date/Time: Monday, April 09, 2018 17:45 - CONCLUSION: 1. Increased interstitial markings bilaterally suggesting pulmonary edema. 2. There is continued consolidation left lower lung suggestive of infiltrate and effusion. 3. There is a small to moderate right-sided effusion David Lezama MD Tubes & Lines: Lim (Jessica Clemons) Physical Exam General Appearance: No Acute Distress, Comfortable (Jessica Clemons) Pulmonary Resp Exam: Breath Sounds Equal, No Distress, Rhonchi, Decreased Bases (Jessica Clemons) Gastrointestinal/Abdomen GI Exam: Non-Tender, Bowel Sounds Present (Jessica Clemons) Genitourinary Exam: Flank Non-Tender (Jessica Clemons) Integumentary Skin Exam: Clear, Warm (Jessica Clemons) Extremeties Extremities Exam: Moderate Edema, Pitting Edema, Dependent Edema (Jessica Clemons) Neurologic Neuro Exam: Alert, Awake, Oriented (Jessica Clemons) Psychiatric Psych Exam: Appropriate Responses (Jessica Clemons) Assessment/Plan Discussed Condition With: Patient Assessment Summary: Fluid/Volume Overload Problem List: (1) Chronic kidney disease (CKD) stage G4/A1, severely decreased glomerular filtration rate (GFR) between 15-29 mL/min/1.73 square meter and albuminuria creatinine ratio less than 30 mg/g ICD Codes: N18.4 - Chronic kidney disease, stage 4 (severe) Plan: Patient has chronic kidney disease stage IV with a GFR of 16 to 17. Plan Edema improving continue lasix 80 mg to TID Continue metalozone 5 mg BID Will continue Albumin every 12 hours. HGB decreasing, 1 x procrit ordered and iron studies Fluid restriction in place Avoid nephrotoxins Patient may need dialysis in the future this has been discussed with patient by Dr. Toro. No urgent need for dialysis Creatinine at 3.0 and edema is improving. Chest Xray on admission with moderate pleural effusion may need thoracentesis with increased oxygen needs. Labs in AM (2) Diastolic CHF, acute ICD Codes: I50.31 - Acute diastolic (congestive) heart failure Plan: continue lasix (Jessica Clemons) Problem List: (1) Chronic kidney disease (CKD) stage G4/A1, severely decreased glomerular filtration rate (GFR) between 15-29 mL/min/1.73 square meter and albuminuria creatinine ratio less than 30 mg/g ICD Codes: N18.4 - Chronic kidney disease, stage 4 (severe) Plan: Patient has chronic kidney disease stage IV with a GFR of 16 to 17. Plan Edema improving continue lasix 80 mg to TID Continue metalozone 5 mg BID Will continue Albumin every 12 hours. HGB decreasing, 1 x procrit ordered and iron studies Fluid restriction in place Avoid nephrotoxins Patient may need dialysis in the future this has been discussed with patient by Dr. Toro. No urgent need for dialysis Creatinine at 3.0 and edema is improving. Chest Xray on admission with moderate pleural effusion may need thoracentesis with increased oxygen needs. Labs in AM. Patient seen and examined, agree with above. Continue diuretics, may will need HD. (2) Diastolic CHF, acute ICD Codes: I50.31 - Acute diastolic (congestive) heart failure Plan: continue lasix (Flavio Toro MD) Jessica Clemons April 15, 2018 12:49 Flavio Toro MD April 18, 2018 19:30
[2018-04-15] MEDS ORDERED: EPOETIN ALFA 20,000 UNITS/ML VIAL SQ ONE (15:00)
[2018-04-15] MEDS: methylPREDNISolone SOD SUCC 40 MG/1 ML VIAL IV PUSH SCH ×2 (15:19→20:54)
[2018-04-15] MEDS: ACETAMINOPHEN/HYDROcodone 325 MG/5 MG TAB PO PRN (15:22)
--- NOTE | 2018-04-15 17:32 | HHI.PR ---
Subjective Remarks 67 YOWF with COPD,Hypoxia,CHF,CKD being diureased Increase in Cr no CP Has mild sob On PRB Objective Vital Signs Vital Signs Date Time Temp Pulse Resp B/P (MAP) Pulse Ox O2 Delivery O2 Flow Rate FiO2 04/15/18 17:02 96 Partial Rebreather 15.00 04/15/18 15:14 98.5 67 19 145/72 (96) 96 04/15/18 11:09 98.2 69 19 165/79 (107) 95 04/15/18 11:00 70 04/15/18 10:00 68 04/15/18 09:09 97 Partial Rebreather 15.00 04/15/18 09:00 74 04/15/18 08:29 98.0 77 22 153/71 (98) 95 04/15/18 08:29 97 Partial Non-Rebreather 15.00 04/15/18 08:00 72 04/15/18 07:00 70 04/15/18 04:00 66 04/15/18 04:00 97.8 69 20 156/71 (99) 92 04/15/18 03:59 97 Partial Rebreather 12.00 04/15/18 00:27 Partial Non-Rebreather 15.00 04/15/18 00:00 68 04/15/18 00:00 97.6 69 22 160/75 (103) 93 04/14/18 23:00 Simple Mask 15.00 04/14/18 23:00 92 Simple Mask 15.00 04/14/18 20:00 69 04/14/18 20:00 97.4 69 22 164/69 (100) 92 04/14/18 20:00 Simple Mask 10.00 04/14/18 19:05 92 Simple Mask 12.00 04/14/18 18:13 68 04/14/18 17:49 98.0 64 20 151/68 (95) 91 I/O 04/14/18 04/14/18 04/14/18 04/15/18 04/15/18 04/15/18 07:00 15:00 23:00 07:00 15:00 23:00 Intake Total 240 ml 500 ml 240 ml Output Total 1000 ml 1500 ml 1000 ml Balance -760 ml -1000 ml -760 ml Intake Oral 240 ml 500 ml 240 ml Output Urine Total 1000 ml 1500 ml 1000 ml # Bowel Movements 0 Result Diagram: 04/15/18 0630 04/15/18 0630 Objective Remarks GENERAL: MBMNWF, mild sob SKIN: Warm and dry. HEAD: Normocephalic. EYES: No scleral icterus. No injection or drainage. NECK: Supple, trachea midline. No JVD or lymphadenopathy. CARDIOVASCULAR: Regular rate and rhythm without murmurs, gallops, or rubs. RESPIRATORY: Breath sounds equal bilaterally. No accessory muscle use. GASTROINTESTINAL: Abdomen soft, non-tender, nondistended. MUSCULOSKELETAL: No cyanosis, ++ edema. BACK: Nontender without obvious deformity. No CVA tenderness. A/P Assessment and Plan IMPRESSION: 1. Respiratory insufficiency. 2. Congestive heart failure. 3. Pleural effusion. 4. Worsening renal functions. 5. Coronary artery disease status post stent placement. PLAN: Supplement 02 with PRB Diurease . Aerosol nebs 2 2 hrs prn Cont Abx Monitor pl eff Cont Steroids Aaron Blankenship MD April 15, 2018 17:32
--- NOTE | 2018-04-15 19:00 | HHI.PR ---
Subjective Remarks Resting in bed, still on O2 mask, hemoglobin 7.1, potassium 5.2, creatinine 3 Afebrile no event overnight Objective Vitals Vital Signs Date Time Temp Pulse Resp B/P (MAP) Pulse Ox O2 Delivery O2 Flow Rate FiO2 04/15/18 18:00 68 04/15/18 17:02 96 Partial Rebreather 15.00 04/15/18 17:00 70 04/15/18 16:00 62 04/15/18 15:14 98.5 67 19 145/72 (96) 96 04/15/18 15:00 64 04/15/18 14:00 68 04/15/18 13:00 70 04/15/18 12:00 68 04/15/18 11:09 98.2 69 19 165/79 (107) 95 04/15/18 11:00 70 04/15/18 10:00 68 04/15/18 09:09 97 Partial Rebreather 15.00 04/15/18 09:00 74 04/15/18 08:29 98.0 77 22 153/71 (98) 95 04/15/18 08:29 97 Partial Non-Rebreather 15.00 04/15/18 08:00 72 04/15/18 07:00 70 04/15/18 04:00 66 04/15/18 04:00 97.8 69 20 156/71 (99) 92 04/15/18 03:59 97 Partial Rebreather 12.00 04/15/18 00:27 Partial Non-Rebreather 15.00 04/15/18 00:00 68 04/15/18 00:00 97.6 69 22 160/75 (103) 93 04/14/18 23:00 Simple Mask 15.00 04/14/18 23:00 92 Simple Mask 15.00 04/14/18 20:00 69 04/14/18 20:00 97.4 69 22 164/69 (100) 92 04/14/18 20:00 Simple Mask 10.00 04/14/18 19:05 92 Simple Mask 12.00 I/O 04/14/18 04/14/18 04/14/18 04/15/18 04/15/18 04/15/18 07:00 15:00 23:00 07:00 15:00 23:00 Intake Total 240 ml 500 ml 240 ml 530 ml Output Total 1000 ml 1500 ml 1000 ml 1300 ml Balance -760 ml -1000 ml -760 ml -770 ml Intake Oral 240 ml 500 ml 240 ml 480 ml IV Total 50 ml Output Urine Total 1000 ml 1500 ml 1000 ml 1300 ml # Bowel Movements 0 Result Diagram: 04/15/18 0630 04/15/18 1710 Objective Remarks GENERAL: This is a well-nourished, well-developed patient, in no apparent distress. CARDIOVASCULAR: RRR, no gallops, or rubs. RESPIRATORY: Diminished breath sounds with few wheezing bilaterally GASTROINTESTINAL: Abdomen soft, non-tender, nondistended. Positive bowel sounds MUSCULOSKELETAL: Extremities without clubbing, cyanosis, +3 edema. Pedal pulses appreciated NEUROLOGICAL: Awake and alert. Moves all extremity. Normal speech.no focal neurological deficit A/P Problem List: (1) COPD (chronic obstructive pulmonary disease) ICD Code: J44.9 - Chronic obstructive pulmonary disease, unspecified (2) CHF (congestive heart failure) ICD Code: I50.9 - Heart failure, unspecified (3) Hypoxia ICD Code: R09.02 - Hypoxemia (4) Hyperkalemia ICD Code: E87.5 - Hyperkalemia (5) Anemia ICD Code: D64.9 - Anemia, unspecified (6) DM (diabetes mellitus) ICD Code: E11.9 - Type 2 diabetes mellitus without complications Assessment and Plan 04/13: Still on partial rebreather mask 50% 7 L oxygen, continue current care continue DuoNeb, pulmonology following 04/14: Monitoring clinical improvement, appreciate pulmonology and nephrology follow-up, still on rebreathing mask 04/15: Hemoglobin 7.1, potassium 5.2, creatinine 3, appreciate nephrology follow- up, continue Lasix 80 mg 3 times daily per renal with albumin, patient may need hemodialysis f per nephrology, repeat BMP in a.m. Uncontrolled hypertension I will add clonidine as needed, A /P: //COPD: Chronic Respiratory Failure w/ Acute Exacerbation, //Hypoxemic respiratory failure +wheezing/respiratory distress, s/p Solu-Medrol w/ improvement. Continue Solu- Medrol, Symbicort, DuoNeb, Mucinex. Pt home Nebulizer broken will need replacement on return home. = Shortness of breath improving. Continue diuresis, treatment for COPD. = 04/11. Discussed with nephrology. Increase diuretics. Appreciate assistance. = 16. Stable respiratory status. Continues on 50% FiO2. Continue diuretics as per nephrology. Appreciate assistance. //Left eye visual deficit. 2 day history without any pain. She says this appears to be improving somewhat. = CT head negative for acute process. Ophthalmology consult pending. = Patient will need follow-up with ophthalmology as outpatient for laser ablation. //Anemia. 7.7. Likely secondary to anemia of chronic kidney disease. Consult nephrology as patient may require erythropoietin.transfuse as needed for Hgb <7 or if hemodynamically unstable. = 04/11. Hemoglobin 7.2. Discussed with nephrology. Will start erythropoietin. Appreciate assistance. = 04/12. Hemoglobin continues stable. Status post urethral [place]. Appreciate nephrology assistance. // CHF: Acute on Chronic. Diastolic. Echo 01/03/18 w/ EF 55-60%, CXR w/ interstitial edema, h/o pleural effusion LLL w/ continued effusion, small to moderate right effusion, s/p Lasix in ER, will continue w/ diuresis Lasix 40mg IV bid, monitor I/O. = cont fluid restriction. Strict intake and output. Continue to monitor // Hyperkalemia: K+ 6.4, s/p Ca/Insulin/Kayexalate in ER, repeat K+ tonight, additional treatment as needed. Telemetry. = Potassium 5.5 expect continued improving on increased dose of IV Lasix. = 04/12. Potassium 5.1. Improved. Continue to monitor. // DM: Sliding scale w/ Accu-Cheks, resume home Levemir. = Increase to moderate sliding scale. = 04/12. Glucose acceptable on increase sliding scale. Continue to monitor. // DVT Prophylaxis: SCD/Teds Discharge Planning Pending improvement. Still on 50% FiO2. Will need SNF/rehab on discharge. = Will need follow-up with ophthalmology for laser ablation =case management following. Appreciate assistance. Problem Qualifiers (1) CHF (congestive heart failure): Qualified Codes: I50.9 - Heart failure, unspecified (2) Anemia: Qualified Codes: D64.9 - Anemia, unspecified Mukesh Arana MD April 15, 2018 19:00
[2018-04-15] MEDS: ATORVASTATIN 40 MG TAB PO SCH (20:53)
[2018-04-16] VITALS (29 sets, daily range): BP systolic 148–181; BP diastolic 64–85; PULSE 64–73; RESP 16–24; TEMP 97.6–98.4; O2SAT 93–100
[2018-04-16] MEDS: ACETAMINOPHEN/HYDROcodone 325 MG/5 MG TAB PO PRN ×2 (00:17→23:07)
[2018-04-16] MEDS: cloNIDine HCL 0.1 MG TAB PO PRN (00:20)
[2018-04-16] MEDS: RESP: ALBUTEROL 2.5 MG/IPRATROPIUM 0.5 MG NEB (PRN) NEB (00:30)
[2018-04-16] MEDS: ALBUMIN 25% INJ 50 ML IV SCH ×2 (03:49→15:55)
[2018-04-16] MEDS: methylPREDNISolone SOD SUCC 40 MG/1 ML VIAL IV PUSH SCH ×3 (06:10→20:55)
[2018-04-16] MEDS: hydrALAZINE HCL 50 MG TAB PO SCH ×3 (06:10→20:53)
[2018-04-16 06:54] LABS: BASOPHIL % 0.1 % (0.0-2.0); HEMATOCRIT 21.5 % (35.0-46.0); HEMOGLOBIN 7.2 GM/DL (11.6-15.3); LYMPH % 7.8 % (9.0-44.0); LYMPHOCYTE # 0.3 TH/MM3 (1.0-4.8); MEAN CELL VOLUME 93.3 FL (80.0-100.0); MEAN CORPUSCULAR HEMOGLOBIN 31.1 PG (27.0-34.0); MEAN CORPUSCULAR HGB CONC 33.3 % (32.0-36.0); MEAN PLATELET VOLUME 8.4 FL (7.0-11.0); MONO % 1.1 % (0.0-8.0); MONOCYTE # 0.1 TH/MM3 (0-0.9); PLATELET COUNT 213 TH/MM3 (150-450); RED CELL DISTRIBUTION WIDTH 16.6 % (11.6-17.2); WHITE BLOOD COUNT 4.4 TH/MM3 (4.0-11.0)
[2018-04-16 07:12] LABS: BICARBONATE 23.8 MEQ/L (21.0-32.0); BLOOD UREA NITROGEN 95 MG/DL (7-18); CALCIUM 8.9 MG/DL (8.5-10.1); CHLORIDE 106 MEQ/L (98-107); CREATININE 2.98 MG/DL (0.50-1.00); GLOMERULAR FILTRATION RATE 16 ML/MIN (>89); GLUCOSE,RANDOM 167 MG/DL (74-106); IRON (FE) 31 MCG/DL (50-170); PHOSPHORUS 5.2 MG/DL (2.5-4.9); SODIUM (NA) 140 MEQ/L (136-145)
[2018-04-16 07:15] LABS: % SATURATION IRON PROFILE 16.3 % (20-50); FERRITIN 146 NG/ML (8-252); TOTAL IRON BINDING CAPACITY 190 MCG/DL (250-450)
[2018-04-16] MEDS: NIFEdipine 30 MG SUSTAINED RELEASE TAB PO SCH ×2 (08:20→20:52)
[2018-04-16] MEDS: ASPIRIN 81 MG CHEW TAB CHEW SCH (08:20)
[2018-04-16] MEDS: guaiFENesin E.R. 600 MG TAB PO SCH ×2 (08:20→20:52)
[2018-04-16] MEDS: CARVEDILOL 6.25 MG TAB PO SCH ×2 (08:20→20:52)
[2018-04-16] MEDS: CALCIUM ACETATE 667 MG CAP PO SCH ×3 (08:20→17:14)
[2018-04-16] MEDS: DOCUSATE SODIUM 50 MG/SENNA 8.6 MG TAB PO SCH ×2 (08:20→20:52)
[2018-04-16] MEDS: FERROUS SULFATE 325 MG (65 MG ELEMENTAL IRON) TAB PO SCH ×2 (08:20→20:52)
[2018-04-16] MEDS: PRASUGREL 10 MG TAB PO SCH (08:21)
[2018-04-16] MEDS: FUROSEMIDE 100 MG/10 ML VIAL IV PUSH SCH ×3 (08:21→17:14)
[2018-04-16] MEDS: INSULIN ASPART SUPPLEMENTAL SCALE SQ SCH ×4 (08:21→20:58)
[2018-04-16] MEDS: ISOSORBIDE MONONITRATE 60 MG CR TAB (IMDUR) PO SCH (08:21)
[2018-04-16] MEDS: INSULIN DETEMIR 100 UNITS/ML VIAL SQ SCH ×2 (08:22→20:58)
[2018-04-16] MEDS: METOLAZONE 5 MG TAB PO SCH ×2 (08:23→18:07)
[2018-04-16] MEDS: SODIUM CHLORIDE 0.9% FLUSH 10 ML FLUSH IV FLUSH SCH ×2 (08:23→20:55)
[2018-04-16] MEDS: BUDESONIDE-FORMOTEROL 160/4.5 MCG INHALER INH SCH ×2 (09:00→20:50)
[2018-04-16] MEDS ORDERED: RESP: ALBUTEROL CONC 2.5 MG/0.5 ML NEB INH STA (11:21)
[2018-04-16] MEDS ORDERED: INSULIN HUMAN REGULAR 1,000 UNITS/10 ML VIAL IV PUSH STA (11:21)
[2018-04-16] MEDS ORDERED: DEXTROSE 50% IN WATER 50 ML VIAL(D50) IV PUSH STA (11:21)
--- NOTE | 2018-04-16 14:50 | HHI.NPPN ---
Subjective History of Present Illness This is a 67-year-old female known to me from before with a past medical history of ischemic heart disease, congestive heart failure with diastolic dysfunction, chronic obstructive pulmonary disease, recurrent pleural effusion, diabetes mellitus, chronic kidney disease,with advanced stage IV renal disease, who came to the hospital with a complaint of shortness of breath.Nephrology was called to see the patient because of her high BUN and creatinine. The patient has a known history of chronic kidney disease. She has been following with me and was admitted last month and at that time, her creatinine was as high as 3.0 and she was started on dialysis mainly for the fluid removal and now she came with a creatinine of 2.8. She was discharged with the serum creatinine of 2.8 to 2.9. She was taking her diuretics and according to her, she was watching her fluid and not drinking more than 40 ounces a day. Gradually, she saw her breathing has been getting worse and she has a cough with whitish sputum. She denies any chest pain. No palpitation. Additional Remarks Continues with oxygen, reports shortness of breath is improving. Review of Systems General Constitutional: Fatigue Respiratory Lungs: SOB Respiratory Remarks improved Cardiovascular Cardiac: Edema, KAMARA Gastrointestinal GI Remarks Denies abdominal pain Objective Data Data Vital Signs Date Time Temp Pulse Resp B/P (MAP) Pulse Ox O2 Delivery O2 Flow Rate FiO2 04/16/18 13:00 69 04/16/18 12:00 71 04/16/18 11:22 98.2 71 24 170/81 (110) 98 04/16/18 11:00 68 04/16/18 10:00 67 04/16/18 09:00 70 04/16/18 08:00 70 04/16/18 07:00 98.0 72 22 168/69 (102) 04/16/18 07:00 95 Partial Non-Rebreather 15.00 04/16/18 07:00 72 04/16/18 05:38 67 04/16/18 05:00 68 04/16/18 04:00 95 Partial Non-Rebreather 15.00 04/16/18 04:00 98.2 70 20 152/72 (98) 95 04/16/18 04:00 70 04/16/18 03:00 70 04/16/18 02:00 68 5/19/18 01:17 20 04/16/18 01:00 154/68 (96) 04/16/18 01:00 68 04/16/18 00:15 93 Partial Non-Rebreather 10.00 04/16/18 00:15 97.6 73 20 181/85 (117) 93 04/16/18 00:00 72 04/15/18 23:00 72 04/15/18 22:00 72 04/15/18 21:00 72 04/15/18 20:00 97.9 74 18 185/76 (112) 95 04/15/18 20:00 69 04/15/18 20:00 Partial Non-Rebreather 15.00 04/15/18 19:00 68 04/15/18 18:00 68 04/15/18 17:02 96 Partial Rebreather 15.00 04/15/18 17:00 70 04/15/18 16:00 62 04/15/18 15:14 98.5 67 19 145/72 (96) 96 04/15/18 15:00 64 -: 04/16/18 0557 04/16/18 0557 Tubes & Lines: Lim Physical Exam General Appearance: No Acute Distress, Comfortable Pulmonary Resp Exam: Breath Sounds Equal, No Distress, Rhonchi, Decreased Bases Gastrointestinal/Abdomen GI Exam: Non-Tender, Bowel Sounds Present Genitourinary Exam: Flank Non-Tender Integumentary Skin Exam: Clear, Warm Extremeties Extremities Exam: Moderate Edema, Pitting Edema, Dependent Edema Neurologic Neuro Exam: Alert, Awake, Oriented Psychiatric Psych Exam: Appropriate Responses Assessment/Plan Discussed Condition With: Patient Assessment Summary: Fluid/Volume Overload Problem List: (1) Chronic kidney disease (CKD) stage G4/A1, severely decreased glomerular filtration rate (GFR) between 15-29 mL/min/1.73 square meter and albuminuria creatinine ratio less than 30 mg/g ICD Codes: N18.4 - Chronic kidney disease, stage 4 (severe) Plan: Patient has chronic kidney disease stage IV with a GFR of 16 to 17. Plan Edema improving continue lasix 80 mg IV TID Continue metalozone 5 mg BID Will continue Albumin every 12 hours. Anemia with hgb 7 - Epogen given Fluid restriction in place Avoid nephrotoxins Patient may need dialysis in the future this has been discussed with patient by Dr. Toro. No urgent need for dialysis Creatinine at 2.9 and edema is improving. Continue to follow with pulmonary. May consider for AV access when stable. Labs in AM (2) Diastolic CHF, acute ICD Codes: I50.31 - Acute diastolic (congestive) heart failure Plan: continue Wally Tay MD April 16, 2018 14:50
--- NOTE | 2018-04-16 15:24 | HHI.PR ---
Subjective Remarks Patient still on nonrebreathing mask however today she is trying to eat her lunch without the mask In general she told me her but breathing is slightly better today, Objective Vitals Vital Signs Date Time Temp Pulse Resp B/P (MAP) Pulse Ox O2 Delivery O2 Flow Rate FiO2 04/16/18 13:00 69 04/16/18 12:00 71 04/16/18 11:22 98.2 71 24 170/81 (110) 98 04/16/18 11:00 68 04/16/18 10:00 67 04/16/18 09:00 70 04/16/18 08:00 70 04/16/18 07:00 98.0 72 22 168/69 (102) 04/16/18 07:00 95 Partial Non-Rebreather 15.00 04/16/18 07:00 72 04/16/18 05:38 67 04/16/18 05:00 68 04/16/18 04:00 95 Partial Non-Rebreather 15.00 04/16/18 04:00 98.2 70 20 152/72 (98) 95 04/16/18 04:00 70 04/16/18 03:00 70 04/16/18 02:00 68 04/16/18 01:17 20 04/16/18 01:00 154/68 (96) 04/16/18 01:00 68 04/16/18 00:15 93 Partial Non-Rebreather 10.00 04/16/18 00:15 97.6 73 20 181/85 (117) 93 04/16/18 00:00 72 04/15/18 23:00 72 04/15/18 22:00 72 04/15/18 21:00 72 04/15/18 20:00 97.9 74 18 185/76 (112) 95 04/15/18 20:00 69 04/15/18 20:00 Partial Non-Rebreather 15.00 04/15/18 19:00 68 04/15/18 18:00 68 04/15/18 17:02 96 Partial Rebreather 15.00 04/15/18 17:00 70 04/15/18 16:00 62 I/O 5/18/18 5/18/18 5/18/18 5/19/18 5/19/18 5/19/18 07:00 15:00 23:00 07:00 15:00 23:00 Intake Total 240 ml 530 ml 240 ml Output Total 1000 ml 1300 ml 1000 ml Balance -760 ml -770 ml -760 ml Intake Oral 240 ml 480 ml 240 ml IV Total 50 ml Output Urine Total 1000 ml 1300 ml 1000 ml # Bowel Movements 0 Result Diagram: 04/16/18 0557 04/16/18 0557 Objective Remarks GENERAL: This is a well-nourished, well-developed patient, in no apparent distress. CARDIOVASCULAR: RRR, no gallops, or rubs. RESPIRATORY: Diminished breath sounds with few wheezing bilaterally GASTROINTESTINAL: Abdomen soft, non-tender, nondistended. Positive bowel sounds MUSCULOSKELETAL: Extremities without clubbing, cyanosis, +3 edema. Pedal pulses appreciated NEUROLOGICAL: Awake and alert. Moves all extremity. Normal speech.no focal neurological deficit A/P Problem List: (1) COPD (chronic obstructive pulmonary disease) ICD Code: J44.9 - Chronic obstructive pulmonary disease, unspecified (2) CHF (congestive heart failure) ICD Code: I50.9 - Heart failure, unspecified (3) Hypoxia ICD Code: R09.02 - Hypoxemia (4) Hyperkalemia ICD Code: E87.5 - Hyperkalemia (5) Anemia ICD Code: D64.9 - Anemia, unspecified (6) DM (diabetes mellitus) ICD Code: E11.9 - Type 2 diabetes mellitus without complications Assessment and Plan 04/13: Still on partial rebreather mask 50% 7 L oxygen, continue current care continue DuoNeb, pulmonology following 04/14: Monitoring clinical improvement, appreciate pulmonology and nephrology follow-up, still on rebreathing mask 04/15: Hemoglobin 7.1, potassium 5.2, creatinine 3, appreciate nephrology follow- up, continue Lasix 80 mg 3 times daily per renal with albumin, patient may need hemodialysis f per nephrology, repeat BMP in a.m. Uncontrolled hypertension I will add clonidine as needed, 04/16: Still on nonrebreathing mask, continue with Solu-Medrol and duo nebs, continue with diuresing, nephrology following, discussed with nephrology Dr. Vila transfusing packed red blood cell to improve her respiratory symptoms A /P: //COPD: Chronic Respiratory Failure w/ Acute Exacerbation, //Hypoxemic respiratory failure +wheezing/respiratory distress, s/p Solu-Medrol w/ improvement. Continue Solu- Medrol, Symbicort, DuoNeb, Mucinex. Pt home Nebulizer broken will need replacement on return home. = Shortness of breath improving. Continue diuresis, treatment for COPD. = 04/11. Discussed with nephrology. Increase diuretics. Appreciate assistance. = 16. Stable respiratory status. Continues on 50% FiO2. Continue diuretics as per nephrology. Appreciate assistance. //Left eye visual deficit. 2 day history without any pain. She says this appears to be improving somewhat. = CT head negative for acute process. Ophthalmology consult pending. = Patient will need follow-up with ophthalmology as outpatient for laser ablation. //Anemia. 7.7. Likely secondary to anemia of chronic kidney disease. Consult nephrology as patient may require erythropoietin.transfuse as needed for Hgb <7 or if hemodynamically unstable. = 04/11. Hemoglobin 7.2. Discussed with nephrology. Will start erythropoietin. Appreciate assistance. = 04/12. Hemoglobin continues stable. Status post urethral [place]. Appreciate nephrology assistance. // CHF: Acute on Chronic. Diastolic. Echo 01/03/18 w/ EF 55-60%, CXR w/ interstitial edema, h/o pleural effusion LLL w/ continued effusion, small to moderate right effusion, s/p Lasix in ER, will continue w/ diuresis Lasix 40mg IV bid, monitor I/O. = cont fluid restriction. Strict intake and output. Continue to monitor // Hyperkalemia: K+ 6.4, s/p Ca/Insulin/Kayexalate in ER, repeat K+ tonight, additional treatment as needed. Telemetry. = Potassium 5.5 expect continued improving on increased dose of IV Lasix. = 04/12. Potassium 5.1. Improved. Continue to monitor. // DM: Sliding scale w/ Accu-Cheks, resume home Levemir. = Increase to moderate sliding scale. = 04/12. Glucose acceptable on increase sliding scale. Continue to monitor. // DVT Prophylaxis: SCD/Teds Discharge Planning Pending improvement. Still on 50% FiO2. Will need SNF/rehab on discharge. = Will need follow-up with ophthalmology for laser ablation =case management following. Appreciate assistance. Problem Qualifiers (1) CHF (congestive heart failure): Qualified Codes: I50.9 - Heart failure, unspecified (2) Anemia: Qualified Codes: D64.9 - Anemia, unspecified Mukesh Arana MD April 16, 2018 15:24
[2018-04-16] MEDS: ATORVASTATIN 40 MG TAB PO SCH (20:52)
[2018-04-17] VITALS (28 sets, daily range): BP systolic 153–170; BP diastolic 72–84; PULSE 62–67; RESP 14–20; TEMP 97.7–98.2; O2SAT 94–100
[2018-04-17] MEDS: ALBUMIN 25% INJ 50 ML IV SCH ×2 (04:22→16:05)
[2018-04-17] MEDS: methylPREDNISolone SOD SUCC 40 MG/1 ML VIAL IV PUSH SCH ×3 (05:38→22:09)
[2018-04-17] MEDS: hydrALAZINE HCL 50 MG TAB PO SCH ×3 (05:42→22:04)
[2018-04-17 08:11] LABS: AUTOMATED NEUTROPHIL # 4.9 TH/MM3 (1.8-7.7); HEMATOCRIT 26.7 % (35.0-46.0); HEMOGLOBIN 8.9 GM/DL (11.6-15.3); LYMPH % 7.2 % (9.0-44.0); LYMPHOCYTE # 0.4 TH/MM3 (1.0-4.8); MEAN CELL VOLUME 91.8 FL (80.0-100.0); MEAN CORPUSCULAR HEMOGLOBIN 30.8 PG (27.0-34.0); MEAN CORPUSCULAR HGB CONC 33.6 % (32.0-36.0); MEAN PLATELET VOLUME 8.4 FL (7.0-11.0); MONO % 3.2 % (0.0-8.0); MONOCYTE # 0.2 TH/MM3 (0-0.9); NEUT % 89.6 % (16.0-70.0); PLATELET COUNT 210 TH/MM3 (150-450); RED BLOOD COUNT 2.91 MIL/MM3 (4.00-5.30); RED CELL DISTRIBUTION WIDTH 17.2 % (11.6-17.2); WHITE BLOOD COUNT 5.5 TH/MM3 (4.0-11.0)
[2018-04-17 08:33] LABS: BICARBONATE 24.8 MEQ/L (21.0-32.0); CALCIUM 9.4 MG/DL (8.5-10.1); CREATININE 3.22 MG/DL (0.50-1.00)
[2018-04-17] MEDS: INSULIN DETEMIR 100 UNITS/ML VIAL SQ SCH ×2 (08:46→22:10)
[2018-04-17] MEDS: FUROSEMIDE 100 MG/10 ML VIAL IV PUSH SCH ×3 (08:46→17:44)
[2018-04-17] MEDS: DOCUSATE SODIUM 50 MG/SENNA 8.6 MG TAB PO SCH ×2 (08:47→22:04)
[2018-04-17] MEDS: INSULIN ASPART SUPPLEMENTAL SCALE SQ SCH ×5 (08:47→22:10)
[2018-04-17] MEDS: PRASUGREL 10 MG TAB PO SCH (08:47)
[2018-04-17] MEDS: CARVEDILOL 6.25 MG TAB PO SCH ×2 (08:47→22:05)
[2018-04-17] MEDS: FERROUS SULFATE 325 MG (65 MG ELEMENTAL IRON) TAB PO SCH ×2 (08:48→22:06)
[2018-04-17] MEDS: ASPIRIN 81 MG CHEW TAB CHEW SCH (08:48)
[2018-04-17] MEDS: ISOSORBIDE MONONITRATE 60 MG CR TAB (IMDUR) PO SCH (08:48)
[2018-04-17] MEDS: CALCIUM ACETATE 667 MG CAP PO SCH ×3 (08:48→17:45)
[2018-04-17] MEDS: SODIUM CHLORIDE 0.9% FLUSH 10 ML FLUSH IV FLUSH SCH ×2 (08:48→22:07)
[2018-04-17] MEDS: NIFEdipine 30 MG SUSTAINED RELEASE TAB PO SCH ×2 (08:48→22:03)
[2018-04-17] MEDS: guaiFENesin E.R. 600 MG TAB PO SCH ×2 (08:48→22:04)
[2018-04-17] MEDS: BUDESONIDE-FORMOTEROL 160/4.5 MCG INHALER INH SCH ×2 (08:49→22:09)
[2018-04-17] MEDS: METOLAZONE 5 MG TAB PO SCH ×2 (08:51→17:45)
--- NOTE | 2018-04-17 12:30 | HHI.NPPN ---
Subjective History of Present Illness This is a 67-year-old female known to me from before with a past medical history of ischemic heart disease, congestive heart failure with diastolic dysfunction, chronic obstructive pulmonary disease, recurrent pleural effusion, diabetes mellitus, chronic kidney disease,with advanced stage IV renal disease, who came to the hospital with a complaint of shortness of breath.Nephrology was called to see the patient because of her high BUN and creatinine. The patient has a known history of chronic kidney disease. She has been following with me and was admitted last month and at that time, her creatinine was as high as 3.0 and she was started on dialysis mainly for the fluid removal and now she came with a creatinine of 2.8. She was discharged with the serum creatinine of 2.8 to 2.9. She was taking her diuretics and according to her, she was watching her fluid and not drinking more than 40 ounces a day. Gradually, she saw her breathing has been getting worse and she has a cough with whitish sputum. She denies any chest pain. No palpitation. Additional Remarks Continues with oxygen, reports shortness of breath is improving. Review of Systems General Constitutional: Fatigue Respiratory Lungs: SOB Respiratory Remarks improved Cardiovascular Cardiac: Edema, KAMARA Gastrointestinal GI Remarks Denies abdominal pain Objective Data Data Vital Signs Date Time Temp Pulse Resp B/P (MAP) Pulse Ox O2 Delivery O2 Flow Rate FiO2 04/17/18 12:00 65 04/17/18 11:00 98.0 64 14 156/77 (103) 97 04/17/18 11:00 63 04/17/18 10:00 64 04/17/18 09:20 96 Partial Rebreather 10.00 04/17/18 09:00 96 Partial Non-Rebreather 10.00 04/17/18 09:00 64 04/17/18 08:00 98 Partial Non-Rebreather 15.00 04/17/18 08:00 64 04/17/18 08:00 97.8 63 16 158/72 (100) 96 04/17/18 07:00 64 04/17/18 06:00 62 04/17/18 05:00 64 04/17/18 04:20 97.7 66 18 156/75 (102) 100 04/17/18 04:00 66 04/17/18 03:00 67 04/17/18 02:30 97.8 67 20 170/76 100 04/17/18 02:00 66 04/17/18 01:00 66 04/17/18 00:00 66 04/16/18 23:44 98.4 67 16 148/72 100 04/16/18 23:00 66 04/16/18 23:00 98.0 67 18 153/64 100 04/16/18 22:43 98.2 66 18 154/71 100 04/16/18 22:05 96 Partial Non-Rebreather 15.00 50 04/16/18 22:00 66 04/16/18 21:00 68 04/16/18 20:00 64 04/16/18 19:45 97.9 67 20 156/77 (103) 99 04/16/18 19:00 66 04/16/18 18:00 68 04/16/18 17:00 67 04/16/18 16:00 65 04/16/18 15:00 69 04/16/18 15:00 97.9 69 22 148/78 (101) 99 04/16/18 14:00 67 04/16/18 13:00 69 -: 04/17/18 0630 04/17/18 0630 Tubes & Lines: Lim Physical Exam General Appearance: No Acute Distress, Comfortable Pulmonary Resp Exam: Breath Sounds Equal, No Distress, Rhonchi, Decreased Bases Gastrointestinal/Abdomen GI Exam: Non-Tender, Bowel Sounds Present Genitourinary Exam: Flank Non-Tender Integumentary Skin Exam: Clear, Warm Extremeties Extremities Exam: Moderate Edema, Pitting Edema, Dependent Edema Neurologic Neuro Exam: Alert, Awake, Oriented Psychiatric Psych Exam: Appropriate Responses Assessment/Plan Discussed Condition With: Patient Assessment Summary: Fluid/Volume Overload Problem List: (1) Chronic kidney disease (CKD) stage G4/A1, severely decreased glomerular filtration rate (GFR) between 15-29 mL/min/1.73 square meter and albuminuria creatinine ratio less than 30 mg/g ICD Codes: N18.4 - Chronic kidney disease, stage 4 (severe) Plan: Patient has chronic kidney disease stage IV with a GFR of 16 to 17. Plan Edema gradually improving continue lasix 80 mg IV TID Continue metalozone 5 mg BID Will continue Albumin every 12 hours. Anemia with hgb 8.9 - Epogen given Fluid restriction in place Avoid nephrotoxins Patient may need dialysis in the future this has been discussed with patient by Dr. Toro. No urgent need for dialysis Creatinine at 2.9 -> 3.2 Edema is improving. Continue to follow with pulmonary. May consider for AV access when stable. Labs in AM (2) Diastolic CHF, acute ICD Codes: I50.31 - Acute diastolic (congestive) heart failure Plan: continue Wally Tay MD April 17, 2018 12:30
--- NOTE | 2018-04-17 18:11 | HHI.PR ---
Subjective Remarks Still on nonrebreather mask however it is 10% instead of 15 Hemoglobin is better today at 8.9 after 1 unit PRBC transfusion yesterday She is resting comfortably in bed denied acute complain Afebrile Objective Vitals Vital Signs Date Time Temp Pulse Resp B/P (MAP) Pulse Ox O2 Delivery O2 Flow Rate FiO2 04/17/18 17:00 64 04/17/18 16:01 99 Partial Non-Rebreather 8.00 04/17/18 16:00 62 04/17/18 15:00 62 04/17/18 15:00 98.2 62 14 162/74 (103) 99 04/17/18 14:00 62 04/17/18 13:00 66 04/17/18 12:00 65 04/17/18 11:00 98.0 64 14 156/77 (103) 97 04/17/18 11:00 63 04/17/18 10:00 64 04/17/18 09:20 96 Partial Rebreather 10.00 04/17/18 09:00 96 Partial Non-Rebreather 10.00 04/17/18 09:00 64 04/17/18 08:00 98 Partial Non-Rebreather 15.00 04/17/18 08:00 64 04/17/18 08:00 97.8 63 16 158/72 (100) 96 04/17/18 07:00 64 04/17/18 06:00 62 04/17/18 05:00 64 04/17/18 04:20 97.7 66 18 156/75 (102) 100 04/17/18 04:00 66 04/17/18 03:00 67 04/17/18 02:30 97.8 67 20 170/76 100 04/17/18 02:00 66 04/17/18 01:00 66 04/17/18 00:00 66 04/16/18 23:44 98.4 67 16 148/72 100 04/16/18 23:00 66 04/16/18 23:00 98.0 67 18 153/64 100 04/16/18 22:43 98.2 66 18 154/71 100 04/16/18 22:05 96 Partial Non-Rebreather 15.00 50 04/16/18 22:00 66 04/16/18 21:00 68 04/16/18 20:00 64 04/16/18 19:45 97.9 67 20 156/77 (103) 99 04/16/18 19:00 66 I/O 04/16/18 04/16/18 04/16/18 04/17/18 04/17/18 04/17/18 07:00 15:00 23:00 07:00 15:00 23:00 Intake Total 240 ml 830 ml 640 ml 480 ml Output Total 1000 ml 1400 ml 1150 ml 1400 ml Balance -760 ml -570 ml -510 ml -920 ml Intake Oral 240 ml 760 ml 240 ml 480 ml IV Total 50 ml Packed Cells 350 ml Blood Product IV Normal Saline Flush 20 ml 50 ml Output Urine Total 1000 ml 1400 ml 1150 ml 1400 ml # Bowel Movements 0 Result Diagram: 04/17/18 0604/17/18 06 Objective Remarks GENERAL: This is a well-nourished, well-developed patient, in no apparent distress. CARDIOVASCULAR: RRR, no gallops, or rubs. RESPIRATORY: Diminished breath sounds with few wheezing bilaterally GASTROINTESTINAL: Abdomen soft, non-tender, nondistended. Positive bowel sounds MUSCULOSKELETAL: Extremities without clubbing, cyanosis, +3 edema. Pedal pulses appreciated NEUROLOGICAL: Awake and alert. Moves all extremity. Normal speech.no focal neurological deficit A/P Problem List: (1) COPD (chronic obstructive pulmonary disease) ICD Code: J44.9 - Chronic obstructive pulmonary disease, unspecified (2) CHF (congestive heart failure) ICD Code: I50.9 - Heart failure, unspecified (3) Hypoxia ICD Code: R09.02 - Hypoxemia (4) Hyperkalemia ICD Code: E87.5 - Hyperkalemia (5) Anemia ICD Code: D64.9 - Anemia, unspecified (6) DM (diabetes mellitus) ICD Code: E11.9 - Type 2 diabetes mellitus without complications Assessment and Plan 04/13: Still on partial rebreather mask 50% 7 L oxygen, continue current care continue [place] pulmonology following 04/14: Monitoring clinical improvement, appreciate pulmonology and nephrology follow-up, still on rebreathing mask 04/15: Hemoglobin 7.1, potassium 5.2, creatinine 3, appreciate nephrology follow- up, continue Lasix 80 mg 3 times daily per renal with albumin, patient may need hemodialysis f per nephrology, repeat BMP in a.m. Uncontrolled hypertension I will add clonidine as needed, 04/16: Still on nonrebreathing mask, continue with Solu-Medrol and duo nebs, continue with diuresing, nephrology following, discussed with nephrology Dr. Vila transfusing packed red blood cell to improve her respiratory symptoms 04/17: Continue weaning O2 process now on nonrebreather mask 10%, hemoglobin improved to 8.9 unit blood transfusion, continue monitoring CBC BMP, creatinine 3.22 with potassium 5.4, discussed with nephrology Dr. Vila, recommended considering AV access when stable for dialysis, continue Solu-Medrol and DuoNeb , discussed with nurse and respiratory A /P: //COPD: Chronic Respiratory Failure w/ Acute Exacerbation, //Hypoxemic respiratory failure +wheezing/respiratory distress, s/p Solu-Medrol w/ improvement. Continue Solu- Medrol, Symbicort, DuoNeb, Mucinex. Pt home Nebulizer broken will need replacement on return home. = Shortness of breath improving. Continue diuresis, treatment for COPD. = 04/11. Discussed with nephrology. Increase diuretics. Appreciate assistance. = 16. Stable respiratory status. Continues on 50% FiO2. Continue diuretics as per nephrology. Appreciate assistance. //Left eye visual deficit. 2 day history without any pain. She says this appears to be improving somewhat. = CT head negative for acute process. Ophthalmology consult pending. = Patient will need follow-up with ophthalmology as outpatient for laser ablation. //Anemia. 7.7. Likely secondary to anemia of chronic kidney disease. Consult nephrology as patient may require erythropoietin.transfuse as needed for Hgb <7 or if hemodynamically unstable. = 04/11. Hemoglobin 7.2. Discussed with nephrology. Will start erythropoietin. Appreciate assistance. = 04/12. Hemoglobin continues stable. Status post urethral [place]. Appreciate nephrology assistance. // CHF: Acute on Chronic. Diastolic. Echo 01/03/18 w/ EF 55-60%, CXR w/ interstitial edema, h/o pleural effusion LLL w/ continued effusion, small to moderate right effusion, s/p Lasix in ER, will continue w/ diuresis Lasix 40mg IV bid, monitor I/O. = cont fluid restriction. Strict intake and output. Continue to monitor // Hyperkalemia: K+ 6.4, s/p Ca/Insulin/Kayexalate in ER, repeat K+ tonight, additional treatment as needed. Telemetry. = Potassium 5.5 expect continued improving on increased dose of IV Lasix. = 04/12. Potassium 5.1. Improved. Continue to monitor. // DM: Sliding scale w/ Accu-Cheks, resume home Levemir. = Increase to moderate sliding scale. = 04/12. Glucose acceptable on increase sliding scale. Continue to monitor. // DVT Prophylaxis: SCD/Teds Discharge Planning Pending improvement. Still on 50% FiO2. Will need SNF/rehab on discharge. = Will need follow-up with ophthalmology for laser ablation =case management following. Appreciate assistance. Problem Qualifiers (1) CHF (congestive heart failure): Qualified Codes: I50.9 - Heart failure, unspecified (2) Anemia: Qualified Codes: D64.9 - Anemia, unspecified Mukesh Arana MD April 17, 2018 18:11
[2018-04-17] MEDS: ATORVASTATIN 40 MG TAB PO SCH (22:07)
[2018-04-18] VITALS (30 sets, daily range): BP systolic 152–183; BP diastolic 70–96; PULSE 58–82; RESP 16–19; TEMP 97.5–98.2; O2SAT 92–99
[2018-04-18] MEDS: ACETAMINOPHEN/HYDROcodone 325 MG/5 MG TAB PO PRN ×2 (00:29→22:30)
[2018-04-18] MEDS: cloNIDine HCL 0.1 MG TAB PO PRN (00:31)
[2018-04-18] MEDS: ALBUMIN 25% INJ 50 ML IV SCH ×2 (04:15→15:45)
[2018-04-18] MEDS: hydrALAZINE HCL 50 MG TAB PO SCH ×3 (05:28→22:30)
[2018-04-18] MEDS: methylPREDNISolone SOD SUCC 40 MG/1 ML VIAL IV PUSH SCH ×3 (05:30→22:30)
[2018-04-18 06:27] LABS: AUTOMATED NEUTROPHIL # 6.3 TH/MM3 (1.8-7.7); BASOPHIL % 0.1 % (0.0-2.0); HEMATOCRIT 27.5 % (35.0-46.0); HEMOGLOBIN 9.2 GM/DL (11.6-15.3); LYMPH % 6.1 % (9.0-44.0); LYMPHOCYTE # 0.4 TH/MM3 (1.0-4.8); MEAN CELL VOLUME 91.3 FL (80.0-100.0); MEAN CORPUSCULAR HEMOGLOBIN 30.7 PG (27.0-34.0); MEAN CORPUSCULAR HGB CONC 33.6 % (32.0-36.0); MEAN PLATELET VOLUME 8.2 FL (7.0-11.0); MONO % 2.6 % (0.0-8.0); MONOCYTE # 0.2 TH/MM3 (0-0.9); NEUT % 91.2 % (16.0-70.0); PLATELET COUNT 236 TH/MM3 (150-450); RED BLOOD COUNT 3.01 MIL/MM3 (4.00-5.30); RED CELL DISTRIBUTION WIDTH 16.9 % (11.6-17.2); WHITE BLOOD COUNT 6.9 TH/MM3 (4.0-11.0)
[2018-04-18 06:55] LABS: BICARBONATE 23.6 MEQ/L (21.0-32.0); CALCIUM 9.5 MG/DL (8.5-10.1); CREATININE 3.2 MG/DL (0.50-1.00); MAGNESIUM 2.3 MG/DL (1.5-2.5); PHOSPHORUS 4.6 MG/DL (2.5-4.9)
[2018-04-18] MEDS: INSULIN ASPART SUPPLEMENTAL SCALE SQ SCH ×4 (08:00→22:30)
[2018-04-18] MEDS: SODIUM CHLORIDE 0.9% FLUSH 10 ML FLUSH IV FLUSH SCH ×2 (09:00→22:30)
[2018-04-18] MEDS: INSULIN DETEMIR 100 UNITS/ML VIAL SQ SCH ×2 (09:00→22:30)
[2018-04-18] MEDS: METOLAZONE 5 MG TAB PO SCH ×2 (09:00→18:00)
[2018-04-18] MEDS: BUDESONIDE-FORMOTEROL 160/4.5 MCG INHALER INH SCH ×2 (09:00→22:30)
--- NOTE | 2018-04-18 09:18 | HHI.NPPN ---
Subjective History of Present Illness This is a 67-year-old female known to me from before with a past medical history of ischemic heart disease, congestive heart failure with diastolic dysfunction, chronic obstructive pulmonary disease, recurrent pleural effusion, diabetes mellitus, chronic kidney disease,with advanced stage IV renal disease, who came to the hospital with a complaint of shortness of breath.Nephrology was called to see the patient because of her high BUN and creatinine. The patient has a known history of chronic kidney disease. She has been following with me and was admitted last month and at that time, her creatinine was as high as 3.0 and she was started on dialysis mainly for the fluid removal and now she came with a creatinine of 2.8. She was discharged with the serum creatinine of 2.8 to 2.9. She was taking her diuretics and according to her, she was watching her fluid and not drinking more than 40 ounces a day. Gradually, she saw her breathing has been getting worse and she has a cough with whitish sputum. She denies any chest pain. No palpitation. Additional Remarks On O2 at 6 liters. Shortness of breath has improved. Wants to go home. Still has edema but improving. (Jessica Clemons) Review of Systems General Constitutional: Fatigue (Jessica Clemons) Respiratory Lungs: SOB Respiratory Remarks improved (Jessica Clemons) Cardiovascular Cardiac: Edema, KAMARA (Jessica Clemons) Gastrointestinal GI Remarks Denies abdominal pain (Jessica Clemons) Objective Data Data Vital Signs Date Time Temp Pulse Resp B/P (MAP) Pulse Ox O2 Delivery O2 Flow Rate FiO2 04/18/18 07:57 94 Nasal Cannula 6.00 04/18/18 06:00 66 04/18/18 05:00 66 04/18/18 04:00 66 04/18/18 03:58 66 16 166/75 (105) 97 04/18/18 03:00 65 04/18/18 02:03 66 16 152/74 (100) 99 04/18/18 02:00 64 04/18/18 01:00 66 04/18/18 00:30 67 18 183/78 (113) 97 04/18/18 00:00 68 04/17/18 23:00 67 04/17/18 22:00 66 04/17/18 21:00 64 04/17/18 20:00 64 04/17/18 19:40 97.8 67 18 153/84 (107) 94 04/17/18 19:40 94 Nasal Cannula 6.00 04/17/18 19:00 66 04/17/18 18:00 67 04/17/18 17:00 64 04/17/18 16:01 99 Partial Non-Rebreather 8.00 04/17/18 16:00 62 04/17/18 15:00 62 04/17/18 15:00 98.2 62 14 162/74 (103) 99 04/17/18 14:00 62 04/17/18 13:00 66 04/17/18 12:00 65 04/17/18 11:00 98.0 64 14 156/77 (103) 97 04/17/18 11:00 63 04/17/18 10:00 64 04/17/18 09:20 96 Partial Rebreather 10.00 (Jessica Clemons) -: 04/18/18 0550 04/18/18 0550 Imaging Last Impressions Head CT 04/10/18 0000 Signed Impressions: Service Date/Time: Tuesday, April 10, 2018 18:05 - CONCLUSION: No acute intracranial disease. Je Fletcher MD Chest X-Ray 04/09/18 1731 Signed Impressions: Service Date/Time: Monday, April 09, 2018 17:45 - CONCLUSION: 1. Increased interstitial markings bilaterally suggesting pulmonary edema. 2. There is continued consolidation left lower lung suggestive of infiltrate and effusion. 3. There is a small to moderate right-sided effusion David Lezama MD Tubes & Lines: Lim (Jessica Clemons) Physical Exam General Appearance: No Acute Distress, Comfortable (Jessica Clemons) Pulmonary Resp Exam: Breath Sounds Equal, No Distress, Rhonchi, Decreased Bases (Jessica Clemons) Cardiology CV Exam: Regular (Jessica Clemons) Gastrointestinal/Abdomen GI Exam: Non-Tender, Bowel Sounds Present (Jessica Clemons) Genitourinary Exam: Flank Non-Tender (Jessica Clemons) Integumentary Skin Exam: Clear, Warm (Jessica Clemons) Extremeties Extremities Exam: Moderate Edema, Pitting Edema, Dependent Edema (Jessica Clemons) Neurologic Neuro Exam: Alert, Awake, Oriented (Jessica Clemons) Psychiatric Psych Exam: Appropriate Responses (Jessica Clemons) Assessment/Plan Discussed Condition With: Patient Assessment Summary: Fluid/Volume Overload Problem List: (1) Chronic kidney disease (CKD) stage G4/A1, severely decreased glomerular filtration rate (GFR) between 15-29 mL/min/1.73 square meter and albuminuria creatinine ratio less than 30 mg/g ICD Codes: N18.4 - Chronic kidney disease, stage 4 (severe) Plan: Patient has chronic kidney disease stage IV with a GFR of 16 to 17. Plan Edema gradually improving continue lasix 80 mg IV TID Continue metalozone 5 mg BID Continue Albumin every 12 hours. Fluid restriction in place Low potassium diet Avoid nephrotoxins Patient may need dialysis in the future this has been discussed with patient by Dr. Toro. No urgent need for dialysis Creatinine at 2.9 -> 3.2 ->3.2 today Edema is improving. May consider for AV access when stable. Labs in AM (2) Diastolic CHF, acute ICD Codes: I50.31 - Acute diastolic (congestive) heart failure Plan: continue lasix (Jessica Clemons) Problem List: (1) Chronic kidney disease (CKD) stage G4/A1, severely decreased glomerular filtration rate (GFR) between 15-29 mL/min/1.73 square meter and albuminuria creatinine ratio less than 30 mg/g ICD Codes: N18.4 - Chronic kidney disease, stage 4 (severe) Plan: Patient has chronic kidney disease stage IV with a GFR of 16 to 17. Plan Edema gradually improving continue lasix 80 mg IV TID Continue metalozone 5 mg BID Continue Albumin every 12 hours. Fluid restriction in place Low potassium diet Avoid nephrotoxins Patient may need dialysis in the future this has been discussed with patient by Dr. Toro. No urgent need for dialysis Creatinine at 2.9 -> 3.2 ->3.2 today Edema is improving. May consider for AV access when stable. Labs in AM. Patient seen and examined, agree with above. If no improvement, possible HD. (2) Diastolic CHF, acute ICD Codes: I50.31 - Acute diastolic (congestive) heart failure Plan: continue lasix (Flavio Toro MD) Jessica Clemons April 18, 2018 09:18 Flavio Toro MD April 18, 2018 19:34
[2018-04-18] MEDS: NIFEdipine 30 MG SUSTAINED RELEASE TAB PO SCH ×2 (10:04→22:30)
[2018-04-18] MEDS: ISOSORBIDE MONONITRATE 60 MG CR TAB (IMDUR) PO SCH (10:05)
[2018-04-18] MEDS: FUROSEMIDE 100 MG/10 ML VIAL IV PUSH SCH ×3 (10:05→18:19)
[2018-04-18] MEDS: CALCIUM ACETATE 667 MG CAP PO SCH ×3 (10:05→18:19)
[2018-04-18] MEDS: FERROUS SULFATE 325 MG (65 MG ELEMENTAL IRON) TAB PO SCH ×2 (10:05→22:30)
[2018-04-18] MEDS: CARVEDILOL 6.25 MG TAB PO SCH ×2 (10:05→22:30)
[2018-04-18] MEDS: DOCUSATE SODIUM 50 MG/SENNA 8.6 MG TAB PO SCH ×2 (10:05→21:00)
[2018-04-18] MEDS: ASPIRIN 81 MG CHEW TAB CHEW SCH (10:05)
[2018-04-18] MEDS: guaiFENesin E.R. 600 MG TAB PO SCH ×2 (10:05→22:30)
[2018-04-18] MEDS: PRASUGREL 10 MG TAB PO SCH (10:06)
--- NOTE | 2018-04-18 16:47 | HHI.PR ---
Subjective Remarks Patient seen and examined earlier today To me she said "I feel much better "she was downgraded to 6 L nasal cannula oxygen Objective Vitals Vital Signs Date Time Temp Pulse Resp B/P (MAP) Pulse Ox O2 Delivery O2 Flow Rate FiO2 04/18/18 16:00 58 04/18/18 15:00 58 04/18/18 15:00 97.5 82 19 174/96 (122) 95 04/18/18 14:00 82 04/18/18 13:00 68 04/18/18 12:00 70 04/18/18 11:00 97.9 75 18 175/76 (109) 94 04/18/18 11:00 71 04/18/18 10:00 68 04/18/18 09:00 70 04/18/18 08:00 66 04/18/18 07:57 94 Nasal Cannula 6.00 04/18/18 07:00 98.2 69 19 158/70 (99) 92 04/18/18 07:00 65 04/18/18 07:00 92 Nasal Cannula 6.00 04/18/18 06:00 66 04/18/18 05:00 66 04/18/18 04:00 66 04/18/18 03:58 66 16 166/75 (105) 97 04/18/18 03:00 65 04/18/18 02:03 66 16 152/74 (100) 99 04/18/18 02:00 64 04/18/18 01:00 66 04/18/18 00:30 67 18 183/78 (113) 97 04/18/18 00:00 68 04/17/18 23:00 67 04/17/18 22:00 66 04/17/18 21:00 64 04/17/18 20:00 64 04/17/18 19:40 97.8 67 18 153/84 (107) 94 04/17/18 19:40 94 Nasal Cannula 6.00 04/17/18 19:00 66 04/17/18 18:00 67 04/17/18 17:00 64 I/O 04/17/18 04/17/18 04/17/18 04/18/18 04/18/18 04/18/18 07:00 15:00 23:00 07:00 15:00 23:00 Intake Total 640 ml 480 ml 240 ml Output Total 1150 ml 1400 ml 1350 ml Balance -510 ml -920 ml -1110 ml Intake Oral 240 ml 480 ml 240 ml Packed Cells 350 ml Blood Product IV Normal Saline Flush 50 ml Output Urine Total 1150 ml 1400 ml 1350 ml # Bowel Movements 0 0 Result Diagram: 04/18/18 0550 04/18/18 0550 Objective Remarks GENERAL: This is a well-nourished, well-developed patient, in no apparent distress. CARDIOVASCULAR: RRR, no gallops, or rubs. RESPIRATORY: Diminished breath sounds with few wheezing bilaterally GASTROINTESTINAL: Abdomen soft, non-tender, nondistended. Positive bowel sounds MUSCULOSKELETAL: Extremities without clubbing, cyanosis, +3 edema. Pedal pulses appreciated NEUROLOGICAL: Awake and alert. Moves all extremity. Normal speech.no focal neurological deficit A/P Problem List: (1) COPD (chronic obstructive pulmonary disease) ICD Code: J44.9 - Chronic obstructive pulmonary disease, unspecified (2) CHF (congestive heart failure) ICD Code: I50.9 - Heart failure, unspecified (3) Hypoxia ICD Code: R09.02 - Hypoxemia (4) Hyperkalemia ICD Code: E87.5 - Hyperkalemia (5) Anemia ICD Code: D64.9 - Anemia, unspecified (6) DM (diabetes mellitus) ICD Code: E11.9 - Type 2 diabetes mellitus without complications Assessment and Plan 04/13: Still on partial rebreather mask 50% 7 L oxygen, continue current care continue DuoNeb, pulmonology following 04/14: Monitoring clinical improvement, appreciate pulmonology and nephrology follow-up, still on rebreathing mask 04/15: Hemoglobin 7.1, potassium 5.2, creatinine 3, appreciate nephrology follow- up, continue Lasix 80 mg 3 times daily per renal with albumin, patient may need hemodialysis f per nephrology, repeat BMP in a.m. Uncontrolled hypertension I will add clonidine as needed, 04/16: Still on nonrebreathing mask, continue with Solu-Medrol and duo nebs, continue with diuresing, nephrology following, discussed with nephrology Dr. Vila transfusing packed red blood cell to improve her respiratory symptoms 04/17: Continue weaning O2 process now on nonrebreather mask 10%, hemoglobin improved to 8.9 unit blood transfusion, continue monitoring CBC BMP, creatinine 3.22 with potassium 5.4, discussed with nephrology Dr. Vila, recommended considering AV access when stable for dialysis, continue Solu-Medrol and DuoNeb , discussed with nurse and respiratory 04/18: We were able to downgrade her oxygen to 6 L nasal cannula, hemoglobin improved to 9.2 today, continue tapering Solu-Medrol, appreciate renal follow-up , Repeat CBC BMP in a.m., A /P: //COPD: Chronic Respiratory Failure w/ Acute Exacerbation, //Hypoxemic respiratory failure +wheezing/respiratory distress, s/p Solu-Medrol w/ improvement. Continue Solu- Medrol, Symbicort, DuoNeb, Mucinex. Pt home Nebulizer broken will need replacement on return home. = Shortness of breath improving. Continue diuresis, treatment for COPD. = 04/11. Discussed with nephrology. Increase diuretics. Appreciate assistance. = 16. Stable respiratory status. Continues on 50% FiO2. Continue diuretics as per nephrology. Appreciate assistance. //Left eye visual deficit. 2 day history without any pain. She says this appears to be improving somewhat. = CT head negative for acute process. Ophthalmology consult pending. = Patient will need follow-up with ophthalmology as outpatient for laser ablation. //Anemia. 7.7. Likely secondary to anemia of chronic kidney disease. Consult nephrology as patient may require erythropoietin.transfuse as needed for Hgb <7 or if hemodynamically unstable. = 04/11. Hemoglobin 7.2. Discussed with nephrology. Will start erythropoietin. Appreciate assistance. = 04/12. Hemoglobin continues stable. Status post urethral Matty. Appreciate nephrology assistance. // CHF: Acute on Chronic. Diastolic. Echo 01/03/18 w/ EF 55-60%, CXR w/ interstitial edema, h/o pleural effusion LLL w/ continued effusion, small to moderate right effusion, s/p Lasix in ER, will continue w/ diuresis Lasix 40mg IV bid, monitor I/O. = cont fluid restriction. Strict intake and output. Continue to monitor // Hyperkalemia: K+ 6.4, s/p Ca/Insulin/Kayexalate in ER, repeat K+ tonight, additional treatment as needed. Telemetry. = Potassium 5.5 expect continued improving on increased dose of IV Lasix. = 04/12. Potassium 5.1. Improved. Continue to monitor. // DM: Sliding scale w/ Accu-Cheks, resume home Levemir. = Increase to moderate sliding scale. = 04/12. Glucose acceptable on increase sliding scale. Continue to monitor. // DVT Prophylaxis: SCD/Teds Discharge Planning Pending improvement. Still on 50% FiO2. Will need SNF/rehab on discharge. = Will need follow-up with ophthalmology for laser ablation =case management following. Appreciate assistance. Discharge Planning When cleared by pulmonary and renal, and patient able to downgrade her oxygen need currently she is on 6 L nasal cannula Problem Qualifiers (1) CHF (congestive heart failure): Qualified Codes: I50.9 - Heart failure, unspecified (2) Anemia: Qualified Codes: D64.9 - Anemia, unspecified Mukesh Arana MD April 18, 2018 16:47
--- NOTE | 2018-04-18 21:03 | HHI.PR ---
Subjective Remarks 67 YOWF with COPD,Hypoxia,CHF,CKD being diureased Increase in Cr no CP feels much better Weaned to NC Objective Vital Signs Vital Signs Date Time Temp Pulse Resp B/P (MAP) Pulse Ox O2 Delivery O2 Flow Rate FiO2 04/18/18 20:07 Nasal Cannula 6.00 50 04/18/18 19:31 94 Nasal Cannula 6.00 04/18/18 18:00 58 04/18/18 17:00 58 04/18/18 16:00 58 04/18/18 15:00 58 04/18/18 15:00 97.5 82 19 174/96 (122) 95 04/18/18 14:00 82 04/18/18 13:00 68 04/18/18 12:00 70 04/18/18 11:00 97.9 75 18 175/76 (109) 94 04/18/18 11:00 71 04/18/18 10:00 68 04/18/18 09:00 70 04/18/18 08:00 66 04/18/18 07:57 94 Nasal Cannula 6.00 04/18/18 07:00 98.2 69 19 158/70 (99) 92 04/18/18 07:00 65 04/18/18 07:00 92 Nasal Cannula 6.00 04/18/18 06:00 66 04/18/18 05:00 66 04/18/18 04:00 66 04/18/18 03:58 66 16 166/75 (105) 97 04/18/18 03:00 65 04/18/18 02:03 66 16 152/74 (100) 99 04/18/18 02:00 64 04/18/18 01:00 66 04/18/18 00:30 67 18 183/78 (113) 97 04/18/18 00:00 68 04/17/18 23:00 67 04/17/18 22:00 66 I/O 04/17/18 04/17/18 04/17/18 04/18/18 04/18/18 04/18/18 07:00 15:00 23:00 07:00 15:00 23:00 Intake Total 640 ml 480 ml 240 ml 800 ml Output Total 1150 ml 1400 ml 1350 ml 1450 ml Balance -510 ml -920 ml -1110 ml -650 ml Intake Oral 240 ml 480 ml 240 ml 800 ml Packed Cells 350 ml Blood Product IV Normal Saline Flush 50 ml Output Urine Total 1150 ml 1400 ml 1350 ml 1450 ml # Bowel Movements 0 0 1 Result Diagram: 04/18/18 0550 04/18/18 0550 Objective Remarks GENERAL: MBMNWF, mild sob SKIN: Warm and dry. HEAD: Normocephalic. EYES: No scleral icterus. No injection or drainage. NECK: Supple, trachea midline. No JVD or lymphadenopathy. CARDIOVASCULAR: Regular rate and rhythm without murmurs, gallops, or rubs. RESPIRATORY: Breath sounds equal bilaterally. No accessory muscle use. GASTROINTESTINAL: Abdomen soft, non-tender, nondistended. MUSCULOSKELETAL: No cyanosis, ++ edema. BACK: Nontender without obvious deformity. No CVA tenderness. A/P Assessment and Plan IMPRESSION: 1. Respiratory insufficiency. 2. Congestive heart failure. 3. Pleural effusion. 4. Worsening renal functions. 5. Coronary artery disease status post stent placement. PLAN: Supplement 02 with NC Diurease . Aerosol nebs 2 2 hrs prn Cont Abx Monitor pl eff Cont Steroids Aaron Blankenship MD April 18, 2018 21:03
[2018-04-18] MEDS: ATORVASTATIN 40 MG TAB PO SCH (22:30)
[2018-04-19] VITALS (18 sets, daily range): BP systolic 170–177; BP diastolic 80–83; PULSE 56–82; RESP 16–24; TEMP 97.3–97.8; O2SAT 91–97
[2018-04-19 06:33] LABS: AUTOMATED NEUTROPHIL # 5.7 TH/MM3 (1.8-7.7); HEMATOCRIT 28.6 % (35.0-46.0); HEMOGLOBIN 9.6 GM/DL (11.6-15.3); LYMPHOCYTE # 0.4 TH/MM3 (1.0-4.8); MEAN CELL VOLUME 91.1 FL (80.0-100.0); MEAN CORPUSCULAR HEMOGLOBIN 30.7 PG (27.0-34.0); MEAN CORPUSCULAR HGB CONC 33.7 % (32.0-36.0); MEAN PLATELET VOLUME 7.8 FL (7.0-11.0); MONO % 3.3 % (0.0-8.0); MONOCYTE # 0.2 TH/MM3 (0-0.9); NEUT % 90.7 % (16.0-70.0); PLATELET COUNT 238 TH/MM3 (150-450); RED BLOOD COUNT 3.14 MIL/MM3 (4.00-5.30); RED CELL DISTRIBUTION WIDTH 17.1 % (11.6-17.2); WHITE BLOOD COUNT 6.3 TH/MM3 (4.0-11.0)
[2018-04-19 07:00] LABS: BICARBONATE 27.5 MEQ/L (21.0-32.0); CALCIUM 9.2 MG/DL (8.5-10.1); CREATININE 3.1 MG/DL (0.50-1.00)
[2018-04-19] MEDS: INSULIN ASPART SUPPLEMENTAL SCALE SQ SCH ×4 (08:00→22:34)
[2018-04-19] MEDS: methylPREDNISolone SOD SUCC 40 MG/1 ML VIAL IV PUSH SCH ×2 (08:01→12:59)
[2018-04-19] MEDS: hydrALAZINE HCL 50 MG TAB PO SCH ×3 (08:01→22:37)
[2018-04-19] MEDS: SODIUM CHLORIDE 0.9% FLUSH 10 ML FLUSH IV FLUSH SCH ×2 (09:00→22:38)
[2018-04-19] MEDS: BUDESONIDE-FORMOTEROL 160/4.5 MCG INHALER INH SCH ×2 (09:00→22:39)
[2018-04-19] MEDS: DOCUSATE SODIUM 50 MG/SENNA 8.6 MG TAB PO SCH ×2 (09:00→21:00)
[2018-04-19] MEDS: INSULIN DETEMIR 100 UNITS/ML VIAL SQ SCH ×2 (09:00→22:34)
[2018-04-19] MEDS: PRASUGREL 10 MG TAB PO SCH (09:51)
[2018-04-19] MEDS: METOLAZONE 5 MG TAB PO SCH ×2 (09:51→18:12)
[2018-04-19] MEDS: NIFEdipine 30 MG SUSTAINED RELEASE TAB PO SCH ×2 (09:51→22:35)
[2018-04-19] MEDS: FERROUS SULFATE 325 MG (65 MG ELEMENTAL IRON) TAB PO SCH ×2 (09:51→22:37)
[2018-04-19] MEDS: CALCIUM ACETATE 667 MG CAP PO SCH ×3 (09:51→18:12)
[2018-04-19] MEDS: ASPIRIN 81 MG CHEW TAB CHEW SCH (09:51)
[2018-04-19] MEDS: guaiFENesin E.R. 600 MG TAB PO SCH ×2 (09:51→22:37)
[2018-04-19] MEDS: ISOSORBIDE MONONITRATE 60 MG CR TAB (IMDUR) PO SCH (09:51)
[2018-04-19] MEDS: CARVEDILOL 6.25 MG TAB PO SCH ×2 (09:51→22:35)
[2018-04-19] MEDS: FUROSEMIDE 100 MG/10 ML VIAL IV PUSH SCH ×3 (09:52→18:12)
--- NOTE | 2018-04-19 15:30 | HHI.NPPN ---
Subjective History of Present Illness This is a 67-year-old female known to me from before with a past medical history of ischemic heart disease, congestive heart failure with diastolic dysfunction, chronic obstructive pulmonary disease, recurrent pleural effusion, diabetes mellitus, chronic kidney disease,with advanced stage IV renal disease, who came to the hospital with a complaint of shortness of breath.Nephrology was called to see the patient because of her high BUN and creatinine. The patient has a known history of chronic kidney disease. She has been following with me and was admitted last month and at that time, her creatinine was as high as 3.0 and she was started on dialysis mainly for the fluid removal and now she came with a creatinine of 2.8. She was discharged with the serum creatinine of 2.8 to 2.9. She was taking her diuretics and according to her, she was watching her fluid and not drinking more than 40 ounces a day. Gradually, she saw her breathing has been getting worse and she has a cough with whitish sputum. She denies any chest pain. No palpitation. Additional Remarks Seen earlier in day. On O2 at 6 liters. Shortness of breath has improved. Edema improving. (Jessica Clemons) Review of Systems General Constitutional: Fatigue (Jessica Clemons) Respiratory Lungs: SOB Respiratory Remarks improved (Jessica Clemons) Cardiovascular Cardiac: Edema, KAMARA (Jessica Clemons) Gastrointestinal GI Remarks Denies abdominal pain (Jessica Clemons) Objective Data Data Vital Signs Date Time Temp Pulse Resp B/P (MAP) Pulse Ox O2 Delivery O2 Flow Rate FiO2 04/19/18 11:00 97.3 59 20 170/83 (112) 96 04/19/18 07:00 97.8 63 24 175/80 (111) 91 04/19/18 07:00 91 Nasal Cannula 6.00 04/19/18 04:02 60 18 97 04/19/18 04:00 60 04/19/18 02:00 60 04/19/18 01:15 16 04/19/18 01:00 80 04/19/18 00:00 82 04/19/18 00:00 82 16 93 04/19/18 00:00 82 04/18/18 23:00 80 04/18/18 22:00 80 04/18/18 21:30 79 04/18/18 21:00 78 04/18/18 20:07 Nasal Cannula 6.00 50 04/18/18 20:00 97.6 82 18 178/91 (120) 95 04/18/18 19:31 94 Nasal Cannula 6.00 04/18/18 19:00 58 04/18/18 18:00 58 04/18/18 17:00 58 04/18/18 16:00 58 (Jessica Clemons) -: 04/19/18 0606 04/19/18 0606 Tubes & Lines: Lim (Jessica Clemons) Physical Exam General Appearance: No Acute Distress, Comfortable (Jessica Clemons) Pulmonary Resp Exam: Breath Sounds Equal, No Distress, Rhonchi, Decreased Bases (Jessica Clemons) Cardiology CV Exam: Regular (Jessica Clemons) Gastrointestinal/Abdomen GI Exam: Non-Tender, Bowel Sounds Present (Jessica Clemons) Genitourinary Exam: Flank Non-Tender (Jsesica Clemons) Integumentary Skin Exam: Clear, Warm (Jessica Clemons) Extremeties Extremities Exam: Moderate Edema, Pitting Edema, Dependent Edema (Jessica Clemons) Neurologic Neuro Exam: Alert, Awake, Oriented (Jessica Clemons) Psychiatric Psych Exam: Appropriate Responses (Jessica Clemons) Assessment/Plan Discussed Condition With: Patient Assessment Summary: Fluid/Volume Overload Problem List: (1) Chronic kidney disease (CKD) stage G4/A1, severely decreased glomerular filtration rate (GFR) between 15-29 mL/min/1.73 square meter and albuminuria creatinine ratio less than 30 mg/g ICD Codes: N18.4 - Chronic kidney disease, stage 4 (severe) Plan: Patient has chronic kidney disease stage IV with a GFR of 16 to 17. Plan Edema gradually improving continue lasix 80 mg IV TID On metolazone 5 mg BID will increase to 10 mg BID Fluid restriction in place Low potassium diet Avoid nephrotoxins Patient may need dialysis in the future this has been discussed with patient by Dr. Toro. No urgent need for dialysis Creatinine at 2.9 -> 3.2 ->3.2 -> 3.10 today Edema is improving but still considerable. Metolazone increased. May consider for AV access when stable. (2) Diastolic CHF, acute ICD Codes: I50.31 - Acute diastolic (congestive) heart failure Plan: continue lasix (Jessica Clemons) Problem List: (1) Chronic kidney disease (CKD) stage G4/A1, severely decreased glomerular filtration rate (GFR) between 15-29 mL/min/1.73 square meter and albuminuria creatinine ratio less than 30 mg/g ICD Codes: N18.4 - Chronic kidney disease, stage 4 (severe) Plan: Patient has chronic kidney disease stage IV with a GFR of 16 to 17. Plan Edema gradually improving continue lasix 80 mg IV TID On metolazone 5 mg BID will increase to 10 mg BID Fluid restriction in place Low potassium diet Avoid nephrotoxins Patient may need dialysis in the future this has been discussed with patient by Dr. Toro. No urgent need for dialysis Creatinine at 2.9 -> 3.2 ->3.2 -> 3.10 today Edema is improving but still considerable. Metolazone increased. May consider for AV access when stable. Patient seen and examined, agree with above. If Creatinine is not better, possibly to start HD. (2) Diastolic CHF, acute ICD Codes: I50.31 - Acute diastolic (congestive) heart failure Plan: continue lasix (Flavio Toro MD) Jessica Clemons April 19, 2018 15:30 Flavio Toro MD April 21, 2018 00:10
--- NOTE | 2018-04-19 16:01 | HHI.PR ---
Subjective Remarks feeling better interactive denies any pain needs assit for ambulation Objective Vitals Vital Signs Date Time Temp Pulse Resp B/P (MAP) Pulse Ox O2 Delivery O2 Flow Rate FiO2 04/19/18 11:00 97.3 59 20 170/83 (112) 96 04/19/18 07:00 97.8 63 24 175/80 (111) 91 04/19/18 07:00 91 Nasal Cannula 6.00 04/19/18 04:02 60 18 97 04/19/18 04:00 60 04/19/18 02:00 60 04/19/18 01:15 16 04/19/18 01:00 80 04/19/18 00:00 82 04/19/18 00:00 82 16 93 04/19/18 00:00 82 04/18/18 23:00 80 04/18/18 22:00 80 04/18/18 21:30 79 04/18/18 21:00 78 04/18/18 20:07 Nasal Cannula 6.00 50 04/18/18 20:00 97.6 82 18 178/91 (120) 95 04/18/18 19:31 94 Nasal Cannula 6.00 04/18/18 19:00 58 04/18/18 18:00 58 04/18/18 17:00 58 04/18/18 16:00 58 I/O 04/18/18 04/18/18 04/18/18 04/19/18 04/19/18 04/19/18 07:00 15:00 23:00 07:00 15:00 23:00 Intake Total 240 ml 800 ml 240 ml Output Total 1350 ml 1450 ml 1050 ml Balance -1110 ml -650 ml -810 ml Intake Oral 240 ml 800 ml 240 ml Output Urine Total 1350 ml 1450 ml 1050 ml # Bowel Movements 0 1 1 Result Diagram: 04/19/18 0606 04/19/18 0606 Imaging Last Impressions Head CT 04/10/18 0000 Signed Impressions: Service Date/Time: Tuesday, April 10, 2018 18:05 - CONCLUSION: No acute intracranial disease. Je Fletcher MD Chest X-Ray 04/09/18 1731 Signed Impressions: Service Date/Time: Monday, April 09, 2018 17:45 - CONCLUSION: 1. Increased interstitial markings bilaterally suggesting pulmonary edema. 2. There is continued consolidation left lower lung suggestive of infiltrate and effusion. 3. There is a small to moderate right-sided effusion David Lezama MD Objective Remarks awake and alert, no acute distress anciteric lungs- no rales or wheezes regular rhythm abdomen soft, extremities - decrease edema neuro exam - unremarkable- generlaized weakness Urinary Catheter: Yes Assessment to: Continue Lim insert reason: Measure Accurate Output Date of Insertion: April 09, 2018 A/P Problem List: (1) COPD (chronic obstructive pulmonary disease) ICD Code: J44.9 - Chronic obstructive pulmonary disease, unspecified (2) CHF (congestive heart failure) ICD Code: I50.9 - Heart failure, unspecified (3) Hypoxia ICD Code: R09.02 - Hypoxemia (4) Hyperkalemia ICD Code: E87.5 - Hyperkalemia (5) Anemia ICD Code: D64.9 - Anemia, unspecified (6) DM (diabetes mellitus) ICD Code: E11.9 - Type 2 diabetes mellitus without complications Assessment and Plan //COPD: Chronic Respiratory Failure w/ Acute Exacerbation,- patient 02 dependent //Hypoxemic respiratory failure - Continue Solu-Medrol- decrease to q 12 -cotninue , Symbicort, DuoNeb, Mucinex. Pt home Nebulizer broken will need replacement on return home. = Shortness of breath improving. Continue diuresis, treatment for COPD. = 04/11. Discussed with nephrology. Increase diuretics. Appreciate assistance. = 16. Stable respiratory status. Continues on 50% FiO2. Continue diuretics as per nephrology. Appreciate assistance. //Left eye visual deficit. 2 day history without any pain. She says this appears to be improving somewhat. = CT head negative for acute process. Ophthalmology consult pending. = Patient will need follow-up with ophthalmology as outpatient for laser ablation. //Anemia. 7.7. Likely secondary to anemia of chronic kidney disease. Consult nephrology as patient may require erythropoietin.transfuse as needed for Hgb <7 or if hemodynamically unstable. = 04/11. Hemoglobin 7.2. Discussed with nephrology. Will start erythropoietin. Appreciate assistance. = 04/12. Hemoglobin continues stable. Status post urethral Matty. Appreciate nephrology assistance. // CHF: Acute on Chronic. Diastolic. Echo 01/03/18 w/ EF 55-60%, CXR w/ interstitial edema, h/o pleural effusion LLL w/ continued effusion, small to moderate right effusion, s/p Lasix in ER, will continue w/ diuresis Lasix 80mg IV q 8 , monitor I/O. = cont fluid restriction. Strict intake and output. Continue to monitor // Hyperkalemia: K+ 6.4, - Improved Chronic kideney disease s/p Ca/Insulin/Kayexalate in ER, repeat K+ tonight, additional treatment as needed. Telemetry. = Potassium 5.5 expect continued improving on increased dose of IV Lasix. = 04/12. Potassium 5.1. Improved. Continue to monitor. - on IV Lasix per Nephrology -ff // DM: Sliding scale w/ Accu-Cheks, resume home Levemir. = Increase to moderate sliding scale. = 04/12. Glucose acceptable on increase sliding scale. Continue to monitor. // DVT Prophylaxis: SCD/Teds Discharge Planning Pending improvement. now on NC. may need SNF/rehab on discharge. = Will need follow-up with ophthalmology for laser ablation =case management following. Appreciate assistance. Discharge Planning When cleared by pulmonary and renal, and patient able to downgrade her oxygen need currently she is on 6 L nasal cannula Problem Qualifiers (1) CHF (congestive heart failure): Qualified Codes: I50.9 - Heart failure, unspecified (2) Anemia: Qualified Codes: D64.9 - Anemia, unspecified Luis Gunn MD April 19, 2018 16:01
--- NOTE | 2018-04-19 18:19 | HHI.PR ---
Subjective Remarks 67 YOWF with COPD,Hypoxia,CHF,CKD Feels much better no CP " i think I am ready to go home" Weaned to NC Objective Vital Signs Vital Signs Date Time Temp Pulse Resp B/P (MAP) Pulse Ox O2 Delivery O2 Flow Rate FiO2 04/19/18 17:00 64 04/19/18 16:00 62 04/19/18 15:00 97.5 63 20 177/80 (112) 91 04/19/18 14:00 58 04/19/18 13:00 60 04/19/18 12:00 56 04/19/18 11:00 97.3 59 20 170/83 (112) 96 04/19/18 10:00 62 04/19/18 09:00 64 04/19/18 08:00 62 04/19/18 07:00 97.8 63 24 175/80 (111) 91 04/19/18 07:00 91 Nasal Cannula 6.00 04/19/18 04:02 60 18 97 04/19/18 04:00 60 04/19/18 02:00 60 04/19/18 01:15 16 04/19/18 01:00 80 04/19/18 00:00 82 04/19/18 00:00 82 16 93 04/19/18 00:00 82 04/18/18 23:00 80 04/18/18 22:00 80 04/18/18 21:30 79 04/18/18 21:00 78 04/18/18 20:07 Nasal Cannula 6.00 50 04/18/18 20:00 97.6 82 18 178/91 (120) 95 04/18/18 19:31 94 Nasal Cannula 6.00 04/18/18 19:00 58 I/O 04/18/18 04/18/18 04/18/18 04/19/18 04/19/18 04/19/18 07:00 15:00 23:00 07:00 15:00 23:00 Intake Total 240 ml 800 ml 240 ml Output Total 1350 ml 1450 ml 1050 ml Balance -1110 ml -650 ml -810 ml Intake Oral 240 ml 800 ml 240 ml Output Urine Total 1350 ml 1450 ml 1050 ml # Bowel Movements 0 1 1 Result Diagram: 04/19/1860504/19/18605 Objective Remarks GENERAL: MBMNWF, mild sob SKIN: Warm and dry. HEAD: Normocephalic. EYES: No scleral icterus. No injection or drainage. NECK: Supple, trachea midline. No JVD or lymphadenopathy. CARDIOVASCULAR: Regular rate and rhythm without murmurs, gallops, or rubs. RESPIRATORY: Breath sounds equal bilaterally. No accessory muscle use. GASTROINTESTINAL: Abdomen soft, non-tender, nondistended. MUSCULOSKELETAL: No cyanosis, ++ edema. BACK: Nontender without obvious deformity. No CVA tenderness. A/P Assessment and Plan IMPRESSION: 1. Respiratory insufficiency. 2. Congestive heart failure. 3. Pleural effusion. 4. Worsening renal functions. 5. Coronary artery disease status post stent placement. PLAN: Supplement 02 with NC Diurease . Aerosol nebs q 2 hrs prn Cont Abx Monitor pl eff Cont Steroids DC plans for home. Aaron Blankenship MD April 19, 2018 18:19
[2018-04-19] MEDS: SODIUM CHLORIDE 0.65% NASAL DRP/SPRY 30 ML BTL EACH NARE SCH (20:00)
[2018-04-19] MEDS ORDERED: methylPREDNISolone SOD SUCC 40 MG/1 ML VIAL IV PUSH SCH (21:00)
[2018-04-19] MEDS: ATORVASTATIN 40 MG TAB PO SCH (22:35)
[2018-04-19] MEDS: ACETAMINOPHEN/HYDROcodone 325 MG/5 MG TAB PO PRN (22:36)
[2018-04-20] VITALS (20 sets, daily range): BP systolic 133–180; BP diastolic 46–87; PULSE 62–84; RESP 16–20; TEMP 97.6–98.1; O2SAT 92–95
[2018-04-20] MEDS: SODIUM CHLORIDE 0.65% NASAL DRP/SPRY 30 ML BTL EACH NARE SCH ×7 (04:00→23:11)
[2018-04-20] MEDS: hydrALAZINE HCL 50 MG TAB PO SCH ×3 (06:50→20:53)
[2018-04-20] MEDS: INSULIN ASPART SUPPLEMENTAL SCALE SQ SCH ×4 (08:00→21:08)
[2018-04-20] MEDS: SODIUM CHLORIDE 0.9% FLUSH 10 ML FLUSH IV FLUSH SCH ×2 (09:00→20:48)
[2018-04-20] MEDS: METOLAZONE 5 MG TAB PO SCH ×2 (09:00→17:44)
[2018-04-20] MEDS: INSULIN DETEMIR 100 UNITS/ML VIAL SQ SCH ×2 (09:00→21:07)
[2018-04-20] MEDS: BUDESONIDE-FORMOTEROL 160/4.5 MCG INHALER INH SCH ×2 (09:00→20:47)
--- NOTE | 2018-04-20 09:16 | HHI.NPPN ---
Subjective History of Present Illness This is a 67-year-old female known to me from before with a past medical history of ischemic heart disease, congestive heart failure with diastolic dysfunction, chronic obstructive pulmonary disease, recurrent pleural effusion, diabetes mellitus, chronic kidney disease,with advanced stage IV renal disease, who came to the hospital with a complaint of shortness of breath.Nephrology was called to see the patient because of her high BUN and creatinine. The patient has a known history of chronic kidney disease. She has been following with me and was admitted last month and at that time, her creatinine was as high as 3.0 and she was started on dialysis mainly for the fluid removal and now she came with a creatinine of 2.8. She was discharged with the serum creatinine of 2.8 to 2.9. She was taking her diuretics and according to her, she was watching her fluid and not drinking more than 40 ounces a day. Gradually, she saw her breathing has been getting worse and she has a cough with whitish sputum. She denies any chest pain. No palpitation. Additional Remarks On O2 at 6 liters. Reports feeling better. Edema improving. (Jessica Clemons) Review of Systems General Constitutional: Fatigue (Jessica Clemons) Respiratory Lungs: SOB Respiratory Remarks improved (Jessica Clemons) Cardiovascular Cardiac: Edema, KAMARA (Jessica Clemons) Gastrointestinal GI Remarks Denies abdominal pain (Jessica Clemons) Objective Data Data Vital Signs Date Time Temp Pulse Resp B/P (MAP) Pulse Ox O2 Delivery O2 Flow Rate FiO2 04/20/18 07:00 98.0 65 20 133/46 (75) 92 04/20/18 07:00 92 Nasal Cannula 4.00 04/20/18 04:00 67 04/20/18 02:50 16 04/20/18 00:00 65 04/20/18 00:00 66 16 94 04/19/18 20:00 68 18 97 04/19/18 20:00 67 04/19/18 19:38 Nasal Cannula 6.00 50 04/19/18 18:00 64 04/19/18 17:00 64 04/19/18 16:00 62 04/19/18 15:00 97.5 63 20 177/80 (112) 91 04/19/18 15:00 58 04/19/18 14:00 58 04/19/18 13:00 60 04/19/18 12:00 56 04/19/18 11:00 57 04/19/18 11:00 97.3 59 20 170/83 (112) 96 04/19/18 10:00 62 (Jessica Clemons) -: 04/19/18 0606 04/19/18 0606 Imaging Last Impressions Head CT 04/10/18 0000 Signed Impressions: Service Date/Time: Tuesday, April 10, 2018 18:05 - CONCLUSION: No acute intracranial disease. Je Fletcher MD Chest X-Ray 04/09/18 1731 Signed Impressions: Service Date/Time: Monday, April 09, 2018 17:45 - CONCLUSION: 1. Increased interstitial markings bilaterally suggesting pulmonary edema. 2. There is continued consolidation left lower lung suggestive of infiltrate and effusion. 3. There is a small to moderate right-sided effusion David Lezama MD Tubes & Lines: Lim (Jessica Clemons) Physical Exam General Appearance: No Acute Distress, Comfortable (Jessica Clemons) Pulmonary Resp Exam: Breath Sounds Equal, No Distress, Decreased Bases (Jessica Clemons) Cardiology CV Exam: Regular (Jessica Clemons) Gastrointestinal/Abdomen GI Exam: Non-Tender, Bowel Sounds Present (Jessica Clemons) Genitourinary Exam: Flank Non-Tender (Jessica Clemons) Integumentary Skin Exam: Clear, Warm (Jessica Clemons) Extremeties Extremities Exam: Moderate Edema, Pitting Edema, Dependent Edema (Jessica Clemons) Neurologic Neuro Exam: Alert, Awake, Oriented (Jessica Clemons) Psychiatric Psych Exam: Appropriate Responses (Jessica Clemons) Assessment/Plan Discussed Condition With: Patient Assessment Summary: Fluid/Volume Overload Problem List: (1) Chronic kidney disease (CKD) stage G4/A1, severely decreased glomerular filtration rate (GFR) between 15-29 mL/min/1.73 square meter and albuminuria creatinine ratio less than 30 mg/g ICD Codes: N18.4 - Chronic kidney disease, stage 4 (severe) Plan: Patient has chronic kidney disease stage IV with a GFR of 16 to 17. Plan Edema gradually improving continue lasix 80 mg IV TID On metolazone 10 mg BID Fluid restriction in place Low potassium diet Avoid nephrotoxins Patient may need dialysis in the future this has been discussed with patient by Dr. Toro. No urgent need for dialysis Creatinine at 2.9 -> 3.2 ->3.2 -> 3.10 yesterday Urinary output at 2.6 L/24 Hours Will proceed with permacath placement and dialysis orders placed. May consider for AV access when stable. (2) Diastolic CHF, acute ICD Codes: I50.31 - Acute diastolic (congestive) heart failure Plan: continue lasix (Jessica Clemons) Problem List: (1) Chronic kidney disease (CKD) stage G4/A1, severely decreased glomerular filtration rate (GFR) between 15-29 mL/min/1.73 square meter and albuminuria creatinine ratio less than 30 mg/g ICD Codes: N18.4 - Chronic kidney disease, stage 4 (severe) Plan: Patient has chronic kidney disease stage IV with a GFR of 16 to 17. Plan Edema gradually improving continue lasix 80 mg IV TID On metolazone 10 mg BID Fluid restriction in place Low potassium diet Avoid nephrotoxins Patient may need dialysis in the future this has been discussed with patient by Dr. Toro. No urgent need for dialysis Creatinine at 2.9 -> 3.2 ->3.2 -> 3.10 yesterday Urinary output at 2.6 L/24 Hours Will proceed with permacath placement and dialysis orders placed. May consider for AV access when stable. Patient seen and examined, agree with above. To start HD in AM. D/W the patient about HD and PD. (2) Diastolic CHF, acute ICD Codes: I50.31 - Acute diastolic (congestive) heart failure Plan: continue lasix (Flavio Toro MD) Jessica Clemons April 20, 2018 09:16 Flavio Toro MD April 21, 2018 00:13
[2018-04-20 09:28] LABS: HEMATOCRIT 31.8 % (35.0-46.0); HEMOGLOBIN 10.7 GM/DL (11.6-15.3); MEAN CELL VOLUME 91.6 FL (80.0-100.0); MEAN CORPUSCULAR HGB CONC 33.8 % (32.0-36.0); MEAN PLATELET VOLUME 7.9 FL (7.0-11.0); PLATELET COUNT 268 TH/MM3 (150-450); RED BLOOD COUNT 3.47 MIL/MM3 (4.00-5.30); RED CELL DISTRIBUTION WIDTH 16.9 % (11.6-17.2); WHITE BLOOD COUNT 6.7 TH/MM3 (4.0-11.0)
[2018-04-20 09:56] LABS: BICARBONATE 25.2 MEQ/L (21.0-32.0); CALCIUM 9.3 MG/DL (8.5-10.1); CREATININE 3.26 MG/DL (0.50-1.00); PHOSPHORUS 4.1 MG/DL (2.5-4.9)
[2018-04-20] MEDS: FUROSEMIDE 100 MG/10 ML VIAL IV PUSH SCH ×3 (10:18→17:44)
[2018-04-20] MEDS: CARVEDILOL 6.25 MG TAB PO SCH ×2 (10:18→20:53)
[2018-04-20] MEDS: FERROUS SULFATE 325 MG (65 MG ELEMENTAL IRON) TAB PO SCH ×2 (10:19→20:54)
[2018-04-20] MEDS: NIFEdipine 30 MG SUSTAINED RELEASE TAB PO SCH ×2 (10:19→20:53)
[2018-04-20] MEDS: PRASUGREL 10 MG TAB PO SCH (10:19)
[2018-04-20] MEDS: DOCUSATE SODIUM 50 MG/SENNA 8.6 MG TAB PO SCH ×2 (10:19→20:54)
[2018-04-20] MEDS: CALCIUM ACETATE 667 MG CAP PO SCH ×3 (10:19→17:44)
[2018-04-20] MEDS: ASPIRIN 81 MG CHEW TAB CHEW SCH (10:19)
[2018-04-20] MEDS: guaiFENesin E.R. 600 MG TAB PO SCH ×2 (10:19→20:51)
[2018-04-20] MEDS: ISOSORBIDE MONONITRATE 60 MG CR TAB (IMDUR) PO SCH (10:19)
[2018-04-20] MEDS: predniSONE 20 MG TAB PO SCH ×2 (10:19→20:53)
--- NOTE | 2018-04-20 10:52 | HHI.PR ---
Subjective Remarks feeling much better up side of the bed- brushiong her teet asking to go home diuresing well edema much improved Objective Vitals Vital Signs Date Time Temp Pulse Resp B/P (MAP) Pulse Ox O2 Delivery O2 Flow Rate FiO2 04/20/18 07:00 98.0 65 20 133/46 (75) 92 04/20/18 07:00 92 Nasal Cannula 4.00 04/20/18 04:00 67 04/20/18 02:50 16 04/20/18 00:00 65 04/20/18 00:00 66 16 94 04/19/18 20:00 68 18 97 04/19/18 20:00 67 04/19/18 19:38 Nasal Cannula 6.00 50 04/19/18 18:00 64 04/19/18 17:00 64 04/19/18 16:00 62 04/19/18 15:00 97.5 63 20 177/80 (112) 91 04/19/18 15:00 58 04/19/18 14:00 58 04/19/18 13:00 60 04/19/18 12:00 56 04/19/18 11:00 57 04/19/18 11:00 97.3 59 20 170/83 (112) 96 I/O 04/19/18 04/19/18 04/19/18 04/20/18 04/20/18 04/20/18 07:00 15:00 23:00 07:00 15:00 23:00 Intake Total 240 ml 922 ml Output Total 1050 ml 1700 ml 950 ml Balance -810 ml -778 ml -950 ml Intake Oral 240 ml 922 ml Output Urine Total 1050 ml 1700 ml 950 ml # Bowel Movements 1 Result Diagram: 04/20/18 0915 04/20/18 0915 Imaging Last Impressions Head CT 04/10/18 0000 Signed Impressions: Service Date/Time: Tuesday, April 10, 2018 18:05 - CONCLUSION: No acute intracranial disease. Je Fletcher MD Chest X-Ray 04/09/18 1731 Signed Impressions: Service Date/Time: Monday, April 09, 2018 17:45 - CONCLUSION: 1. Increased interstitial markings bilaterally suggesting pulmonary edema. 2. There is continued consolidation left lower lung suggestive of infiltrate and effusion. 3. There is a small to moderate right-sided effusion David J. Siragusa, MD Objective Remarks awake and alert, no acute distress anicteric lungs- no rales or wheezes regular rhythm abdomen soft, extremities - edema- much improved - skin- wrinkling neuro exam - unremarkable- strength stronger Urinary Catheter: Yes Assessment to: Continue Lim insert reason: Measure Accurate Output Date of Insertion: April 09, 2018 A/P Problem List: (1) COPD (chronic obstructive pulmonary disease) ICD Code: J44.9 - Chronic obstructive pulmonary disease, unspecified (2) CHF (congestive heart failure) ICD Code: I50.9 - Heart failure, unspecified (3) Hypoxia ICD Code: R09.02 - Hypoxemia (4) Hyperkalemia ICD Code: E87.5 - Hyperkalemia (5) Anemia ICD Code: D64.9 - Anemia, unspecified (6) DM (diabetes mellitus) ICD Code: E11.9 - Type 2 diabetes mellitus without complications Assessment and Plan //COPD: Chronic Respiratory Failure w/ Acute Exacerbation,- patient 02 dependent //Hypoxemic respiratory failure - change to po Prednisone 20 mgpo bid today 04/20 -cotninue , Symbicort, DuoNeb, Mucinex. Pt home Nebulizer broken will need replacement on return home. = Shortness of breath improving. Continue diuresis, treatment for COPD. - NC 2 LNC- patient on chornic 02 //Left eye visual deficit. 2 day history without any pain. She says this appears to be improving somewhat. = CT head negative for acute process. Ophthalmology consult pending. = Patient will need follow-up with ophthalmology as outpatient for laser ablation. //Anemia. 7.7. Likely secondary to anemia of chronic kidney disease. Consult nephrology as patient may require erythropoietin.transfuse as needed for Hgb <7 or if hemodynamically unstable. = 04/11. Hemoglobin 7.2. Discussed with nephrology. Will start erythropoietin. Appreciate assistance. = 04/12. Hemoglobin continues stable. Status post urethral [place]. Appreciate nephrology assistance. // CHF: Acute on Chronic. Diastolic. Echo 01/03/18 w/ EF 55-60%, CXR w/ interstitial edema, h/o pleural effusion LLL w/ continued effusion, small to moderate right effusion, s/p Lasix in ER, on diuresis Lasix 80 mg IV q 8 , monitor I/O. -try decrease tomorow to q 12 tomorrow and monitor = cont fluid restriction. Strict intake and output. Continue to monitor Chronic kidney disease - Nephrology ff . ON IV Lasix q 8 + Metolazone // Hyperkalemia: K+ 6.4, Resolved s/p Ca/Insulin/Kayexalate in ER, repeat K+ tonight, additional treatment as needed. Telemetry. = Potassium 5.5 expect continued improving on increased dose of IV Lasix. // DM: Sliding scale w/ Accu-Cheks, - high radings on steroids resume home Levemir. - Increaase dose 8 units bid = sliding scale. = 04/12. Glucose acceptable on increase sliding scale. Continue to monitor. // DVT Prophylaxis: SCD/Teds Discharge Planning Pending improvement. now on NC. may need SNF/rehab on discharge. = Will need follow-up with ophthalmology for laser ablation =case management following. Appreciate assistance. Discharge Planning When cleared by pulmonary and renal, and patient able to downgrade her oxygen need currently she is on 6 L nasal cannula Problem Qualifiers (1) CHF (congestive heart failure): Qualified Codes: I50.9 - Heart failure, unspecified (2) Anemia: Qualified Codes: D64.9 - Anemia, unspecified Luis Gunn MD April 20, 2018 10:52
[2018-04-20] MEDS ORDERED: SODIUM CHLOR 0.9% 1000 ML INJ 1,000 ML OTHER PRN ×2 (16:38)
[2018-04-20] MEDS ORDERED: SODIUM CHLOR 0.9% 1000 ML INJ 1,000 ML IV PRN (16:38)
[2018-04-20] MEDS ORDERED: SODIUM CHLORIDE 0.9% FLUSH 10 ML FLUSH IV FLUSH PRN (16:45)
[2018-04-20] MEDS ORDERED: MANNITOL 12.5 GM/50 ML VIAL IV PRN (16:45)
[2018-04-20] MEDS ORDERED: GELATIN 12 MM/7 MM FOAM TOP PRN (16:45)
[2018-04-20] MEDS ORDERED: HEPARIN SODIUM - IV 10,000 UNITS/10 ML VIAL IV FLUSH PRN (16:45)
[2018-04-20] MEDS ORDERED: ONDANSETRON ODT 4 MG TAB SL PRN (16:45)
[2018-04-20] MEDS ORDERED: cloNIDine HCL 0.1 MG TAB PO PRN (16:45)
[2018-04-20] MEDS ORDERED: NITROGLYCERIN 0.4 MG SL 25 TABS/BTL SL PRN (16:45)
[2018-04-20] MEDS ORDERED: diphenhydrAMINE HCL 25 MG CAP PO PRN (16:45)
[2018-04-20] MEDS ORDERED: ACETAMINOPHEN 325 MG TAB PO PRN (16:45)
[2018-04-20] MEDS ORDERED: ALBUMIN 25% INJ 100 ML IV PRN (16:45)
--- NOTE | 2018-04-20 19:59 | HHI.PR ---
Subjective Remarks 67 YOWF with COPD,Hypoxia,CHF,CKD Feels much better no CP No new complaint" Weaned to NC Objective Vital Signs Vital Signs Date Time Temp Pulse Resp B/P (MAP) Pulse Ox O2 Delivery O2 Flow Rate FiO2 04/20/18 18:00 82 04/20/18 17:00 66 04/20/18 16:00 65 04/20/18 15:00 97.6 63 20 167/78 (107) 95 04/20/18 15:00 64 04/20/18 14:00 63 04/20/18 13:00 62 04/20/18 12:26 20 04/20/18 12:00 64 04/20/18 11:22 95 Nasal Cannula 2.50 04/20/18 11:00 97.7 64 20 168/80 (109) 94 04/20/18 11:00 63 04/20/18 10:00 64 04/20/18 09:00 66 04/20/18 08:00 66 04/20/18 07:00 98.0 65 20 133/46 (75) 92 04/20/18 07:00 63 04/20/18 07:00 92 Nasal Cannula 4.00 04/20/18 04:00 67 04/20/18 02:50 16 04/20/18 00:00 65 04/20/18 00:00 66 16 94 04/19/18 20:00 68 18 97 04/19/18 20:00 67 I/O 04/19/18 04/19/18 04/19/18 04/20/18 04/20/18 04/20/18 07:00 15:00 23:00 07:00 15:00 23:00 Intake Total 240 ml 922 ml 682 ml Output Total 1050 ml 1700 ml 950 ml 1250 ml Balance -810 ml -778 ml -950 ml -568 ml Intake Oral 240 ml 922 ml 682 ml Output Urine Total 1050 ml 1700 ml 950 ml 1250 ml # Bowel Movements 1 Result Diagram: 04/20/1815 04/20/1815 Objective Remarks GENERAL: MBMNWF, mild sob SKIN: Warm and dry. HEAD: Normocephalic. EYES: No scleral icterus. No injection or drainage. NECK: Supple, trachea midline. No JVD or lymphadenopathy. CARDIOVASCULAR: Regular rate and rhythm without murmurs, gallops, or rubs. RESPIRATORY: Breath sounds equal bilaterally. No accessory muscle use. GASTROINTESTINAL: Abdomen soft, non-tender, nondistended. MUSCULOSKELETAL: No cyanosis, ++ edema. BACK: Nontender without obvious deformity. No CVA tenderness. A/P Assessment and Plan IMPRESSION: 1. Respiratory insufficiency. 2. Congestive heart failure. 3. Pleural effusion. 4. Worsening renal functions. 5. Coronary artery disease status post stent placement. PLAN: Supplement 02 with NC Diurease . Aerosol nebs q 2 hrs prn Cont Abx Monitor pl eff Pred 20 mg bid Stable from Pulm standpoint. Aaron Blankenship MD April 20, 2018 19:59
[2018-04-20] MEDS: ATORVASTATIN 40 MG TAB PO SCH (20:54)
[2018-04-20] MEDS: ACETAMINOPHEN/HYDROcodone 325 MG/5 MG TAB PO PRN (23:10)
[2018-04-21] VITALS (27 sets, daily range): BP systolic 146–180; BP diastolic 72–98; PULSE 60–85; RESP 16–21; TEMP 97.8–98.5; O2SAT 93–98
[2018-04-21] MEDS: SODIUM CHLORIDE 0.65% NASAL DRP/SPRY 30 ML BTL EACH NARE SCH ×2 (04:00→22:00)
[2018-04-21] MEDS: hydrALAZINE HCL 50 MG TAB PO SCH ×3 (05:22→22:00)
[2018-04-21 07:03] LABS: ALBUMIN 2.7 GM/DL (3.4-5.0); ALT (GPT) 20 U/L (10-53); AST (GOT) 11 U/L (15-37); BICARBONATE 27.1 MEQ/L (21.0-32.0); BLOOD UREA NITROGEN 111 MG/DL (7-18); CHLORIDE 97 MEQ/L (98-107); CREATININE 3.24 MG/DL (0.50-1.00); GLOMERULAR FILTRATION RATE 14 ML/MIN (>89); GLUCOSE,RANDOM 233 MG/DL (74-106); SODIUM (NA) 136 MEQ/L (136-145)
[2018-04-21 07:04] LABS: ALKALINE PHOSPHATASE 131 U/L (45-117); TOTAL BILIRUBIN ADULT 0.3 MG/DL (0.2-1.0); TOTAL PROTEIN 5.6 GM/DL (6.4-8.2)
[2018-04-21] MEDS: INSULIN ASPART SUPPLEMENTAL SCALE SQ SCH ×4 (08:00→21:59)
[2018-04-21] MEDS: CALCIUM ACETATE 667 MG CAP PO SCH ×3 (09:00→18:00)
[2018-04-21] MEDS: guaiFENesin E.R. 600 MG TAB PO SCH ×2 (09:00→21:57)
[2018-04-21] MEDS: CARVEDILOL 6.25 MG TAB PO SCH ×2 (09:00→21:58)
[2018-04-21] MEDS: BUDESONIDE-FORMOTEROL 160/4.5 MCG INHALER INH SCH ×2 (09:00→21:56)
[2018-04-21] MEDS: ISOSORBIDE MONONITRATE 60 MG CR TAB (IMDUR) PO SCH (09:00)
[2018-04-21] MEDS: SODIUM CHLORIDE 0.9% FLUSH 10 ML FLUSH IV FLUSH SCH ×2 (09:00→21:56)
[2018-04-21] MEDS: FERROUS SULFATE 325 MG (65 MG ELEMENTAL IRON) TAB PO SCH ×2 (09:00→21:57)
[2018-04-21] MEDS: FUROSEMIDE 100 MG/10 ML VIAL IV PUSH SCH ×3 (09:00→18:00)
[2018-04-21] MEDS: DOCUSATE SODIUM 50 MG/SENNA 8.6 MG TAB PO SCH ×2 (09:00→21:57)
[2018-04-21] MEDS: ASPIRIN 81 MG CHEW TAB CHEW SCH (09:00)
[2018-04-21] MEDS: NIFEdipine 30 MG SUSTAINED RELEASE TAB PO SCH ×2 (09:00→21:58)
[2018-04-21] MEDS: predniSONE 20 MG TAB PO SCH (09:00)
[2018-04-21] MEDS: METOLAZONE 5 MG TAB PO SCH ×2 (09:00→18:00)
[2018-04-21] MEDS: INSULIN DETEMIR 100 UNITS/ML VIAL SQ SCH ×2 (09:00→21:59)
[2018-04-21] MEDS: PRASUGREL 10 MG TAB PO SCH (09:00)
--- NOTE | 2018-04-21 10:03 | HHI.NPPN ---
Subjective History of Present Illness This is a 67-year-old female known to me from before with a past medical history of ischemic heart disease, congestive heart failure with diastolic dysfunction, chronic obstructive pulmonary disease, recurrent pleural effusion, diabetes mellitus, chronic kidney disease,with advanced stage IV renal disease, who came to the hospital with a complaint of shortness of breath.Nephrology was called to see the patient because of her high BUN and creatinine. The patient has a known history of chronic kidney disease. She has been following with me and was admitted last month and at that time, her creatinine was as high as 3.0 and she was started on dialysis mainly for the fluid removal and now she came with a creatinine of 2.8. She was discharged with the serum creatinine of 2.8 to 2.9. She was taking her diuretics and according to her, she was watching her fluid and not drinking more than 40 ounces a day. Gradually, she saw her breathing has been getting worse and she has a cough with whitish sputum. She denies any chest pain. No palpitation. Additional Remarks Plan for Permacath placement in left IJ and dialysis today. (Jessica Clemons) Review of Systems General Constitutional: Fatigue (Jessica Clemons) Respiratory Lungs: SOB Respiratory Remarks improved (Jessica Clemons) Cardiovascular Cardiac: Edema, KAMARA (Jessica Clemons) Gastrointestinal GI Remarks Denies abdominal pain (Jessica Clemons) Objective Data Data Vital Signs Date Time Temp Pulse Resp B/P (MAP) Pulse Ox O2 Delivery O2 Flow Rate FiO2 04/21/18 06:00 64 04/21/18 05:00 64 04/21/18 04:00 65 04/21/18 04:00 98.4 63 16 170/75 (106) 94 04/21/18 03:00 64 04/21/18 02:00 64 04/21/18 01:00 66 04/21/18 00:00 66 04/21/18 00:00 98.1 68 16 164/83 (110) 95 04/20/18 23:00 64 04/20/18 22:00 66 04/20/18 21:00 64 04/20/18 20:00 65 04/20/18 20:00 65 04/20/18 20:00 Nasal Cannula 2.50 04/20/18 20:00 98.1 66 16 180/87 (118) 95 04/20/18 19:00 84 04/20/18 18:00 82 04/20/18 17:00 66 04/20/18 16:00 65 04/20/18 15:00 97.6 63 20 167/78 (107) 95 04/20/18 15:00 64 04/20/18 14:00 63 04/20/18 13:00 62 04/20/18 12:26 20 04/20/18 12:00 64 04/20/18 11:22 95 Nasal Cannula 2.50 04/20/18 11:00 97.7 64 20 168/80 (109) 94 04/20/18 11:00 63 04/20/18 10:00 64 (Jessica Clemons) -: 04/20/18 0915 04/21/18 0601 Imaging Last Impressions Head CT 04/10/18 0000 Signed Impressions: Service Date/Time: Tuesday, April 10, 2018 18:05 - CONCLUSION: No acute intracranial disease. Je Fletcher MD Chest X-Ray 04/09/18 1731 Signed Impressions: Service Date/Time: Monday, April 09, 2018 17:45 - CONCLUSION: 1. Increased interstitial markings bilaterally suggesting pulmonary edema. 2. There is continued consolidation left lower lung suggestive of infiltrate and effusion. 3. There is a small to moderate right-sided effusion David Lezama MD Tubes & Lines: Lim (Jessica Clemons) Physical Exam General Appearance: No Acute Distress, Comfortable (Jessica Clemons) Pulmonary Resp Exam: Breath Sounds Equal, No Distress, Rhonchi, Decreased Bases (Jessica Clemons) Cardiology CV Exam: Regular (Jessica Clemons) Gastrointestinal/Abdomen GI Exam: Non-Tender, Bowel Sounds Present (Jessica Clemons) Genitourinary Exam: Flank Non-Tender (Jessica Clemons) Integumentary Skin Exam: Clear, Warm (Jessica Clemons) Extremeties Extremities Exam: Moderate Edema, Pitting Edema, Dependent Edema (Jessica Clemons) Neurologic Neuro Exam: Alert, Awake, Oriented (Jessica Clemons) Psychiatric Psych Exam: Appropriate Responses (Jessica Clemons) Assessment/Plan Discussed Condition With: Patient Assessment Summary: Fluid/Volume Overload Problem List: (1) Chronic kidney disease (CKD) stage G4/A1, severely decreased glomerular filtration rate (GFR) between 15-29 mL/min/1.73 square meter and albuminuria creatinine ratio less than 30 mg/g ICD Codes: N18.4 - Chronic kidney disease, stage 4 (severe) Plan: Patient has chronic kidney disease stage IV with a GFR of 16 to 17. Plan Continue lasix 80 mg IV TID Continue metolazone 10 mg BID Fluid restriction in place Low potassium diet Avoid nephrotoxins Creatinine at 3.24 and GFR 14ml/min and potassium of 4.3 Despite aggressive diuresis patient continues to have considerably anasarca Will proceed with permacath placement and dialysis today. May consider for AV access when stable. (2) Diastolic CHF, acute ICD Codes: I50.31 - Acute diastolic (congestive) heart failure Plan: continue lasix (Jessica Clemons) Problem List: (1) Chronic kidney disease (CKD) stage G4/A1, severely decreased glomerular filtration rate (GFR) between 15-29 mL/min/1.73 square meter and albuminuria creatinine ratio less than 30 mg/g ICD Codes: N18.4 - Chronic kidney disease, stage 4 (severe) Plan: Patient has chronic kidney disease stage IV with a GFR of 16 to 17. Plan Continue lasix 80 mg IV TID Continue metolazone 10 mg BID Fluid restriction in place Low potassium diet Avoid nephrotoxins Creatinine at 3.24 and GFR 14ml/min and potassium of 4.3 Despite aggressive diuresis patient continues to have considerably anasarca Will proceed with permacath placement and dialysis today. May consider for AV access when stable. Patient seen and examine, agree with above. Started on HD, remove fluid as tolerated. (2) Diastolic CHF, acute ICD Codes: I50.31 - Acute diastolic (congestive) heart failure Plan: continue lasix (Flavio Toro MD) Jessica Clemons April 21, 2018 10:03 Flavio Toro MD April 22, 2018 00:20
[2018-04-21] MEDS: ACETAMINOPHEN/HYDROcodone 325 MG/5 MG TAB PO PRN ×2 (10:09→18:52)
[2018-04-21] MEDS: METOCLOPRAMIDE HCL 10 MG/2 ML VIAL IV PUSH PRN ×2 (12:04→23:06)
[2018-04-21] MEDS: cloNIDine HCL 0.1 MG TAB PO PRN ×2 (12:08→23:10)
--- NOTE | 2018-04-21 13:15 | HHI.PR ---
Subjective Remarks for vas cath placement today [facility] uremic symptoms- - nausea no abdominal pain Objective Vitals Vital Signs Date Time Temp Pulse Resp B/P (MAP) Pulse Ox O2 Delivery O2 Flow Rate FiO2 04/21/18 07:25 96 Nasal Cannula 2.00 04/21/18 07:20 98.5 85 18 161/72 (101) 93 04/21/18 07:00 64 04/21/18 06:00 64 04/21/18 05:00 64 04/21/18 04:00 65 04/21/18 04:00 98.4 63 16 170/75 (106) 94 04/21/18 03:00 64 04/21/18 02:00 64 04/21/18 01:00 66 04/21/18 00:00 66 04/21/18 00:00 98.1 68 16 164/83 (110) 95 04/20/18 23:00 64 04/20/18 22:00 66 04/20/18 21:00 64 04/20/18 20:00 65 04/20/18 20:00 65 04/20/18 20:00 Nasal Cannula 2.50 04/20/18 20:00 98.1 66 16 180/87 (118) 95 04/20/18 19:00 84 04/20/18 18:00 82 04/20/18 17:00 66 04/20/18 16:00 65 04/20/18 15:00 97.6 63 20 167/78 (107) 95 04/20/18 15:00 64 04/20/18 14:00 63 I/O 04/20/18 04/20/18 04/20/18 04/21/18 04/21/18 04/21/18 07:00 15:00 23:00 07:00 15:00 23:00 Intake Total 682 ml 240 ml Output Total 950 ml 2450 ml 550 ml Balance -950 ml -1768 ml -310 ml Intake Oral 682 ml 240 ml Output Urine Total 950 ml 2450 ml 550 ml Result Diagram: 04/20/18 0915 04/21/18 0601 Imaging Last Impressions Head CT 04/10/18 0000 Signed Impressions: Service Date/Time: Tuesday, April 10, 2018 18:05 - CONCLUSION: No acute intracranial disease. Je Fletcher MD Chest X-Ray 04/09/18 1731 Signed Impressions: Service Date/Time: Monday, April 09, 2018 17:45 - CONCLUSION: 1. Increased interstitial markings bilaterally suggesting pulmonary edema. 2. There is continued consolidation left lower lung suggestive of infiltrate and effusion. 3. There is a small to moderate right-sided effusion David Lezama MD Objective Remarks awake and alert, no acute distress anicteric lungs- no rales or wheezes regular rhythm abdomen soft, extremities - edema- much improved - skin- wrinkling neuro exam - unremarkable- strength stronger Urinary Catheter: Yes Assessment to: Continue Lim insert reason: Measure Accurate Output Date of Insertion: April 09, 2018 A/P Problem List: (1) COPD (chronic obstructive pulmonary disease) ICD Code: J44.9 - Chronic obstructive pulmonary disease, unspecified (2) CHF (congestive heart failure) ICD Code: I50.9 - Heart failure, unspecified (3) Hypoxia ICD Code: R09.02 - Hypoxemia (4) Hyperkalemia ICD Code: E87.5 - Hyperkalemia (5) Anemia ICD Code: D64.9 - Anemia, unspecified (6) DM (diabetes mellitus) ICD Code: E11.9 - Type 2 diabetes mellitus without complications Assessment and Plan //COPD: Chronic Respiratory Failure w/ Acute Exacerbation,- patient 02 dependent //Hypoxemic respiratory failure - change to po Prednisone 20 mgpo bid today 04/20- continye taper -cotninue , Symbicort, DuoNeb, Mucinex. Pt home Nebulizer broken will need replacement on return home. = Shortness of breath improving. Continue diuresis, treatment for COPD. - NC 2 LNC- patient on chornic 02 //Left eye visual deficit. 2 day history without any pain. She says this appears to be improving somewhat. = CT head negative for acute process. Ophthalmology consult pending. = Patient will need follow-up with ophthalmology as outpatient for laser ablation. //Anemia. 7.7. Likely secondary to anemia of chronic kidney disease. Consult nephrology as patient may require erythropoietin.transfuse as needed for Hgb <7 or if hemodynamically unstable. = 04/11. Hemoglobin 7.2. Discussed with nephrology. Will start erythropoietin. Appreciate assistance. = 04/12. Hemoglobin continues stable. Status post urethral [place]. Appreciate nephrology assistance. // CHF: Acute on Chronic. Diastolic. Echo 01/03/18 w/ EF 55-60%, CXR w/ interstitial edema, h/o pleural effusion LLL w/ continued effusion, small to moderate right effusion, s/p Lasix in ER, Hypertension - elevated readings on diuresis Lasix 80 mg IV q 8 , monitor I/O. = cont fluid restriction. Strict intake and output. Continue to monitor - should improve when HD initiated - increase hydralazine to 100 mg tid, - continue coreg/CCB. Nitrates Chronic kidney disease - Nephrology ff . ON IV Lasix q 8 + Metolazone // Hyperkalemia: K+ 6.4, Resolved - plan for Vas cath today to iitiate hHD patient was on Effiant and permcath can't be done = Effiant held today 04/21 // DM: Sliding scale w/ Accu-Cheks, - high readings on steroids resume home Levemir. - Increaase dose 8 units bid = sliding scale. = 04/12. Glucose acceptable on increase sliding scale. Continue to monitor. // DVT Prophylaxis: SCD/Teds Discharge Planning Pending improvement. now on NC. may need SNF/rehab on discharge. = Will need follow-up with ophthalmology for laser ablation =case management following. Appreciate assistance. Discharge Planning When cleared by pulmonary and renal, a Problem Qualifiers (1) CHF (congestive heart failure): Qualified Codes: I50.9 - Heart failure, unspecified (2) Anemia: Qualified Codes: D64.9 - Anemia, unspecified Luis Gunn MD April 21, 2018 13:14
[2018-04-21] MEDS ORDERED: HEPARIN SODIUM - IV 2,000 UNITS/2 ML VIAL IV FLUSH PRN (15:45)
[2018-04-21] MEDS ORDERED: SODIUM CHLORIDE 0.9% FLUSH 10 ML FLUSH IV FLUSH PRN (15:45)
--- NOTE | 2018-04-21 15:46 | PD.RAD ---
Post Procedure Progress Note Pre Procedure Diagnosis: (1) CKD (chronic kidney disease) stage 3, GFR 30-59 ml/min Post Procedure Diagnosis: (1) Chronic kidney disease (CKD) stage G4/A1, severely decreased glomerular filtration rate (GFR) between 15-29 mL/min/1.73 square meter and albuminuria creatinine ratio less than 30 mg/g Procedure Date: April 21, 2018 Supervising Radiologist: Preet Chavez Proceduralist/Assist: Martha Purcell, RT(R)(ELENA), Other (Skyler) Anesthesia: Local Plan of Activity Patient to Unit: Nursing Unit Patient Condition: Good See PACS Report for procedural detail/treatment Central Venous Access Device Procedure 1 Right Internal Jugular Hemodialysis Catheter Non-Tunneled Placement single lumen [place]: 14 PICC Line Length (cm): 15 Preet Chavez MD April 21, 2018 15:46
[2018-04-21] MEDS: GENTAMICIN SULFATE 20 MG/2 ML VIAL OTHER PRN (17:23)
[2018-04-21] MEDS: EPOETIN ALFA 10,000 UNITS/ML VIAL IV PUSH PRN (17:23)
[2018-04-21] MEDS: HEPARIN SODIUM - IV 10,000 UNITS/10 ML VIAL PRN (17:23)
--- NOTE | 2018-04-21 19:56 | RADRPT ---
EXAM DATE: 04/21/2018 4:34 PM EDT AGE/SEX: 67 years / Female INDICATIONS: Patient with ESRD. Needs a dialysis catheter. CLINICAL DATA: This is the patient's initial encounter. Patient reports that signs and symptoms have been present for 2 weeks and indicates a pain score of 0/10. MEDICAL/SURGICAL HISTORY: Chronic renal failure. Ischemic heart disease CHF [facility] OPD recurrent p leural effusion Appendectomy. cardiac stent section tonsillectomy COMPARISON: No prior [place] exams available for comparison. FLUORO TIME (min): 0.4 IMAGE SERIES: 1 ACCESS SITE: Right internal jugular vein DEVICE(S): 14 [place] double lumen Schon catheter 15 cm . . PROCEDURE : 1. Ultrasound guided venipuncture. 2. Fluoroscopic guidance. 3. Central line placement. The risks, benefits and alternatives to the procedure were explained and verbal and written consent w as obtained. The site was prepped in sterile fashion. Full sterile technique was used, including ca p, mask, sterile gloves and gown and a large sterile sheet. Hand hygiene and 2% chlorhexidine prep w as utilized per protocol for cutaneous antisepsis with appropriate dry time for site. Sterile gel an d sterile probe cover were utilized for ultrasound guidance. The skin and subcutaneous tissues were infiltrated with local anesthetic solution. A suitable site a yovani the vein was selected with ultrasound and fluoroscopic guidance. A small incision was made. Th e vein was accessed under direct ultrasound visualization using the micropuncture technique. The sade ropuncture set was exchanged for a 0.035 wire. The tract was dilated. The catheter was advanced int o position under direct fluoroscopic visualization with the tip positioned at the junction of the sup erior vena cava and right atrium. The catheter was fixed in place with suture and a sterile dressing was applied. The patient tolerated the procedure well and there were no complications. CONCLUSION: 1. Uncomplicated line placement as above. Electronically signed by: Preet Chavez MD 04/21/2018 7:54 PM EDT
--- NOTE | 2018-04-21 20:06 | HHI.PR ---
Subjective Remarks 67 YOWF with COPD,Hypoxia,CHF,CKD Feels much better no CP No new complaint" Weaned to NC Had permacath placed Objective Vital Signs Vital Signs Date Time Temp Pulse Resp B/P (MAP) Pulse Ox O2 Delivery O2 Flow Rate FiO2 04/21/18 13:28 98.0 61 16 180/98 (125) 96 04/21/18 11:40 96 Nasal Cannula 2.00 04/21/18 11:00 98.0 61 18 162/80 (107) 96 04/21/18 07:25 96 Nasal Cannula 2.00 04/21/18 07:20 98.5 85 18 161/72 (101) 93 04/21/18 07:00 64 04/21/18 06:00 64 04/21/18 05:00 64 04/21/18 04:00 65 04/21/18 04:00 98.4 63 16 170/75 (106) 94 04/21/18 03:00 64 04/21/18 02:00 64 04/21/18 01:00 66 04/21/18 00:00 66 04/21/18 00:00 98.1 68 16 164/83 (110) 95 04/20/18 23:00 64 04/20/18 22:00 66 04/20/18 21:00 64 I/O 04/20/18 04/20/18 04/20/18 04/21/18 04/21/18 04/21/18 07:00 15:00 23:00 07:00 15:00 23:00 Intake Total 682 ml 240 ml Output Total 950 ml 2450 ml 550 ml 2000 ml Balance -950 ml -1768 ml -310 ml -2000 ml Intake Oral 682 ml 240 ml Output Urine Total 950 ml 2450 ml 550 ml Hemodialysis 2000 ml Result Diagram: 04/20/18 0915 04/21/18 0601 Objective Remarks GENERAL: MBMNWF, mild sob SKIN: Warm and dry. HEAD: Normocephalic. EYES: No scleral icterus. No injection or drainage. NECK: Supple, trachea midline. No JVD or lymphadenopathy. CARDIOVASCULAR: Regular rate and rhythm without murmurs, gallops, or rubs. RESPIRATORY: Breath sounds equal bilaterally. No accessory muscle use. GASTROINTESTINAL: Abdomen soft, non-tender, nondistended. MUSCULOSKELETAL: No cyanosis, ++ edema. BACK: Nontender without obvious deformity. No CVA tenderness. A/P Assessment and Plan IMPRESSION: 1. Respiratory insufficiency. 2. Congestive heart failure. 3. Pleural effusion. 4. Worsening renal functions. 5. Coronary artery disease status post stent placement. PLAN: Supplement 02 with NC Diurease . Aerosol nebs q 2 hrs prn Cont Abx Monitor pl eff Pred 20 mg bid HD per renal Aaron Blankenship MD April 21, 2018 20:06
[2018-04-21] MEDS: ATORVASTATIN 40 MG TAB PO SCH (21:57)
[2018-04-21] MEDS: predniSONE 10 MG TAB PO SCH (21:58)
[2018-04-21] MEDS: MORPHINE SULFATE 2 MG/ML SYRINGE IV PUSH PRN (22:02)
[2018-04-22] VITALS (21 sets, daily range): BP systolic 143–193; BP diastolic 70–90; PULSE 60–82; RESP 16–20; TEMP 98–98.8; O2SAT 94–98
[2018-04-22] MEDS: SODIUM CHLORIDE 0.65% NASAL DRP/SPRY 30 ML BTL EACH NARE SCH ×6 (04:00→20:00)
[2018-04-22] MEDS ORDERED: hydrALAZINE HCL 20 MG/ML VIAL IV PUSH ONE (04:15)
[2018-04-22] MEDS: hydrALAZINE HCL 50 MG TAB PO SCH ×3 (06:22→22:51)
[2018-04-22] MEDS: INSULIN ASPART SUPPLEMENTAL SCALE SQ SCH ×4 (08:00→21:00)
--- NOTE | 2018-04-22 08:27 | HHI.PR ---
Subjective Remarks awake and alert, feels nauseated - noted when BP is high- last evening right now no n/v, had a good BM last evening, no hematemesis or melena mild epigastric discomfort abdominal exam is benign Objective Vitals Vital Signs Date Time Temp Pulse Resp B/P (MAP) Pulse Ox O2 Delivery O2 Flow Rate FiO2 04/22/18 06:11 61 04/22/18 05:00 62 04/22/18 04:00 66 04/22/18 03:59 97 Nasal Cannula 2.00 04/22/18 03:59 98.4 66 17 193/90 (124) 97 04/22/18 03:00 81 04/22/18 02:06 82 04/22/18 01:23 81 04/22/18 00:00 80 04/21/18 23:57 96 Nasal Cannula 2.00 04/21/18 23:57 97.8 84 21 171/90 (117) 96 04/21/18 23:00 84 04/21/18 22:21 95 Nasal Cannula 2.00 04/21/18 22:21 97.8 84 20 180/90 (120) 95 04/21/18 22:08 18 04/21/18 22:00 84 04/21/18 21:00 64 04/21/18 20:06 96 Nasal Cannula 2.00 04/21/18 20:00 62 04/21/18 19:58 16 04/21/18 19:00 63 04/21/18 18:00 62 04/21/18 17:50 98.0 63 16 146/73 (97) 98 04/21/18 17:00 64 04/21/18 13:28 98.0 61 16 180/98 (125) 96 04/21/18 13:00 60 04/21/18 12:00 62 04/21/18 11:40 96 Nasal Cannula 2.00 04/21/18 11:00 61 04/21/18 11:00 98.0 61 18 162/80 (107) 96 04/21/18 10:00 64 04/21/18 09:00 64 I/O 04/21/18 04/21/18 04/21/18 04/22/18 04/22/18 04/22/18 07:00 15:00 23:00 07:00 15:00 23:00 Intake Total 240 ml 240 ml Output Total 550 ml 2000 ml 1100 ml Balance -310 ml -2000 ml -860 ml Intake Oral 240 ml 240 ml Output Urine Total 550 ml 1000 ml Emesis 100 ml Hemodialysis 2000 ml Result Diagram: 04/20/18 0915 04/21/18 0601 Imaging Last Impressions Catheter Placement X-Ray 04/21/18 0000 Signed Impressions: CONCLUSION: 1. Uncomplicated line placement as above. Head CT 04/10/18 0000 Signed Impressions: Service Date/Time: Tuesday, April 10, 2018 18:05 - CONCLUSION: No acute intracranial disease. Je Fletcher MD Chest X-Ray 04/09/18 1731 Signed Impressions: Service Date/Time: Monday, April 09, 2018 17:45 - CONCLUSION: 1. Increased interstitial markings bilaterally suggesting pulmonary edema. 2. There is continued consolidation left lower lung suggestive of infiltrate and effusion. 3. There is a small to moderate right-sided effusion David Lezama MD Objective Remarks awake and alert, no acute distress anicteric vas cath in place- right neck lungs- no rales or wheezes regular rhythm abdomen soft, good bowelmsounds, nontender extremities edema improving - skin- wrinkling neuro exam - unremarkable- strength stronger Procedures 04/21- Vas cath placement Date of Insertion: April 09, 2018 A/P Problem List: (1) COPD (chronic obstructive pulmonary disease) ICD Code: J44.9 - Chronic obstructive pulmonary disease, unspecified (2) CHF (congestive heart failure) ICD Code: I50.9 - Heart failure, unspecified (3) Hypoxia ICD Code: R09.02 - Hypoxemia (4) Hyperkalemia ICD Code: E87.5 - Hyperkalemia (5) Anemia ICD Code: D64.9 - Anemia, unspecified (6) DM (diabetes mellitus) ICD Code: E11.9 - Type 2 diabetes mellitus without complications Assessment and Plan //COPD: Chronic Respiratory Failure w/ Acute Exacerbation,- patient 02 dependent //Hypoxemic respiratory failure - change to po Prednisone 20 mgpo bid today 04/20- continye taper -cotninue , Symbicort, DuoNeb, Mucinex. Pt home Nebulizer broken will need replacement on return home. = Shortness of breath improving. Continue diuresis, treatment for COPD. - NC 2 LNC- patient on chornic 02 //Left eye visual deficit. 2 day history without any pain. She says this appears to be improving somewhat. = CT head negative for acute process. Ophthalmology consult pending. = Patient will need follow-up with ophthalmology as outpatient for laser ablation. //Anemia. 7.7. Likely secondary to anemia of chronic kidney disease. Consult nephrology as patient may require erythropoietin.transfuse as needed for Hgb <7 or if hemodynamically unstable. = 04/11. Hemoglobin 7.2. Discussed with nephrology. Will start erythropoietin. Appreciate assistance. = 04/12. Hemoglobin continues stable. Status post urethral [place]. Appreciate nephrology assistance. // CHF: Acute on Chronic. Diastolic. Echo 01/03/18 w/ EF 55-60%, CXR w/ interstitial edema, h/o pleural effusion LLL w/ continued effusion, small to moderate right effusion, s/p Lasix in ER, Hypertension - elevated readings on diuresis Lasix 80 mg IV q 8 , monitor I/O. = cont fluid restriction. Strict intake and output. Continue to monitor - should improve when HD initiated - increase hydralazine to 100 mg tid, - continue coreg/CCB. Nitrates - increase doses Chronic kidney disease - Nephrology ff . ON IV Lasix q 8 + Metolazone. decrease lasix to 80 mg bid // Hyperkalemia: Resolved patient was on Effiant and permcath can't be done = Effiant held today 04/21 // DM: Sliding scale w/ Accu-Cheks, - high readings on steroids resume home Levemir. - Increaase dose 8 units bid = sliding scale. = 04/12. Glucose acceptable on increase sliding scale. Continue to monitor. Persistent Nausea and vomiting- ? uremic symptoms- but patient already getting HD abdominal exam- benign - get GI consult today for evaluation ?EGD -start PPI // DVT Prophylaxis: SCD/Teds Discharge Planning Pending improvement. now on SC. may need SNF/rehab on discharge. = Will need follow-up with ophthalmology for laser ablation =case management following. Appreciate assistance. Discharge Planning When cleared by pulmonary and renal, a Problem Qualifiers (1) CHF (congestive heart failure): Qualified Codes: I50.9 - Heart failure, unspecified (2) Anemia: Qualified Codes: D64.9 - Anemia, unspecified Lacierda,Alfea M. MD April 22, 2018 08:27
[2018-04-22] MEDS: predniSONE 10 MG TAB PO SCH ×2 (09:00→22:52)
[2018-04-22] MEDS: CARVEDILOL 6.25 MG TAB PO SCH ×2 (09:00→22:52)
[2018-04-22] MEDS: ISOSORBIDE MONONITRATE 60 MG CR TAB (IMDUR) PO SCH (09:00)
[2018-04-22] MEDS: ASPIRIN 81 MG CHEW TAB CHEW SCH (09:00)
[2018-04-22] MEDS: CALCIUM ACETATE 667 MG CAP PO SCH ×3 (09:00→18:00)
[2018-04-22] MEDS: guaiFENesin E.R. 600 MG TAB PO SCH ×2 (09:00→22:52)
[2018-04-22] MEDS: INSULIN DETEMIR 100 UNITS/ML VIAL SQ SCH ×2 (09:00→21:00)
[2018-04-22] MEDS: BUDESONIDE-FORMOTEROL 160/4.5 MCG INHALER INH SCH ×2 (09:00→21:00)
[2018-04-22] MEDS: FERROUS SULFATE 325 MG (65 MG ELEMENTAL IRON) TAB PO SCH ×2 (09:00→22:51)
[2018-04-22] MEDS: DOCUSATE SODIUM 50 MG/SENNA 8.6 MG TAB PO SCH ×2 (09:00→21:00)
[2018-04-22] MEDS ORDERED: FUROSEMIDE 100 MG/10 ML VIAL IV PUSH SCH (09:00)
[2018-04-22] MEDS: SODIUM CHLORIDE 0.9% FLUSH 10 ML FLUSH IV FLUSH SCH ×2 (09:00→22:53)
[2018-04-22] MEDS: PANTOPRAZOLE SODIUM 40 MG VIAL IV PUSH SCH (10:00)
[2018-04-22] MEDS ORDERED: METOCLOPRAMIDE HCL 10 MG/2 ML VIAL IV PUSH ONE (10:00)
--- NOTE | 2018-04-22 10:19 | HHI.NPPN ---
Subjective History of Present Illness This is a 67-year-old female known to me from before with a past medical history of ischemic heart disease, congestive heart failure with diastolic dysfunction, chronic obstructive pulmonary disease, recurrent pleural effusion, diabetes mellitus, chronic kidney disease,with advanced stage IV renal disease, who came to the hospital with a complaint of shortness of breath.Nephrology was called to see the patient because of her high BUN and creatinine. The patient has a known history of chronic kidney disease. She has been following with me and was admitted last month and at that time, her creatinine was as high as 3.0 and she was started on dialysis mainly for the fluid removal and now she came with a creatinine of 2.8. She was discharged with the serum creatinine of 2.8 to 2.9. She was taking her diuretics and according to her, she was watching her fluid and not drinking more than 40 ounces a day. Gradually, she saw her breathing has been getting worse and she has a cough with whitish sputum. She denies any chest pain. No palpitation. Additional Remarks Seen during hemodialysis. Complaining of nausea. Also thrush noted on tongue. Review of Systems General Constitutional: Fatigue Respiratory Lungs: SOB Respiratory Remarks improved Cardiovascular Cardiac: Edema, KAMARA Gastrointestinal GI Remarks Denies abdominal pain Objective Data Data Vital Signs Date Time Temp Pulse Resp B/P (MAP) Pulse Ox O2 Delivery O2 Flow Rate FiO2 04/22/18 07:15 98 Nasal Cannula 2.00 04/22/18 07:15 98.0 79 16 150/70 (96) 98 04/22/18 07:00 61 04/22/18 06:11 61 04/22/18 05:00 62 04/22/18 04:00 66 04/22/18 03:59 97 Nasal Cannula 2.00 04/22/18 03:59 98.4 66 17 193/90 (124) 97 04/22/18 03:00 81 04/22/18 02:06 82 04/22/18 01:23 81 04/22/18 00:00 80 04/21/18 23:57 96 Nasal Cannula 2.00 04/21/18 23:57 97.8 84 21 171/90 (117) 96 04/21/18 23:00 84 04/21/18 22:21 95 Nasal Cannula 2.00 04/21/18 22:21 97.8 84 20 180/90 (120) 95 04/21/18 22:08 18 04/21/18 22:00 84 04/21/18 21:00 64 04/21/18 20:06 96 Nasal Cannula 2.00 04/21/18 20:00 62 04/21/18 19:58 16 04/21/18 19:00 63 04/21/18 18:00 62 04/21/18 17:50 98.0 63 16 146/73 (97) 98 04/21/18 17:00 64 04/21/18 13:28 98.0 61 16 180/98 (125) 96 04/21/18 13:00 60 04/21/18 12:00 62 04/21/18 11:40 96 Nasal Cannula 2.00 04/21/18 11:00 61 04/21/18 11:00 98.0 61 18 162/80 (107) 96 -: 04/20/18 0915 04/21/18 0601 Imaging Last Impressions Catheter Placement X-Ray 04/21/18 0000 Signed Impressions: CONCLUSION: 1. Uncomplicated line placement as above. Head CT 04/10/18 0000 Signed Impressions: Service Date/Time: Tuesday, April 10, 2018 18:05 - CONCLUSION: No acute intracranial disease. Je Fletcher MD Chest X-Ray 04/09/18 1731 Signed Impressions: Service Date/Time: Monday, April 09, 2018 17:45 - CONCLUSION: 1. Increased interstitial markings bilaterally suggesting pulmonary edema. 2. There is continued consolidation left lower lung suggestive of infiltrate and effusion. 3. There is a small to moderate right-sided effusion David Lezama MD Tubes & Lines: Vas-Cath, Lim Tubes & Lines Comment Right IJ Physical Exam General Appearance: No Acute Distress, Comfortable Pulmonary Resp Exam: Breath Sounds Equal, No Distress, Decreased Bases Cardiology CV Exam: Regular Gastrointestinal/Abdomen GI Exam: Non-Tender, Bowel Sounds Present Genitourinary Exam: Flank Non-Tender Integumentary Skin Exam: Clear, Warm Extremeties Extremities Exam: Moderate Edema, Pitting Edema, Dependent Edema Extremeties Remarks Edema improving Neurologic Neuro Exam: Alert, Awake, Oriented Psychiatric Psych Exam: Appropriate Responses Assessment/Plan Discussed Condition With: Patient Assessment Summary: Fluid/Volume Overload Problem List: (1) Chronic kidney disease (CKD) stage G4/A1, severely decreased glomerular filtration rate (GFR) between 15-29 mL/min/1.73 square meter and albuminuria creatinine ratio less than 30 mg/g ICD Codes: N18.4 - Chronic kidney disease, stage 4 (severe) Plan: Patient has chronic kidney disease stage IV with a GFR of 16 to 17 which has now progressed to end stage renal disease. Plan Lasix decreased to 80 mg daily. Metolazone discontinued Will discontinue indwelling Lim catheter Avoid fluid administration Avoid nephrotoxins Vas cath placement in right IJ, Effient is on hold. Plan for permacath in left IJ when able. Creatinine at 3.24 and GFR 14ml/min Hemodialysis started on 04/21 with a UF of 2 liters Seen during hemodialysis today remove fluid as tolerated. May consider for AV access when stable. Case management consulted to facilitate setting up outpatient dialysis. (2) Diastolic CHF, acute ICD Codes: I50.31 - Acute diastolic (congestive) heart failure Plan: continue lasix (3) Hypertension ICD Codes: I10 - Essential (primary) hypertension Plan: Blood pressure elevated Procardia XL increased (4) Nausea & vomiting ICD Codes: R11.2 - Nausea with vomiting, unspecified Plan: GI consulted Jessica Clemons April 22, 2018 10:19
--- NOTE | 2018-04-22 10:52 | PD.CONS ---
HPI History of Present Illness This is a 67 year old female who was admitted to the hospital on 04/09/2018 with symptoms of COPD, congestive heart failure, and hypoxia. Patient is a known diabetic, anemia, and has end-stage renal disease currently on hemodialysis. Within the past 24-48 hours patient has had acute onset of nausea and vomiting which she states she has never had like this before. Patient does remember an EGD that was done here at [place] approximately 2 years ago. The record does show possible EGD done back in February 2017 in which patient describes a big pain in her stomach that was removed. This could have been an AVM but other than that patient has history of symptoms of GERD. Patient's current hemoglobin is 10.7 no obvious bleeding noted now but patient did have low hemoglobin on 2017 (7.2), and did receive 1 unit of blood. Patient had a normal brown bowel movement last p.m. with no obvious blood or melena. Patient also states that she was given some peanut butter last night to eat and still had the peanut butter on her stomach this a.m. when she threw up. The symptoms could be related to gastroparesis complicated from her diabetes. According to old records patient was also in the hospital for C. difficile colitis back in October 2017. Patient also notes colonoscopy with her last endoscopy and does note history of polyps. Patient's family history is positive for colon cancer with her dad who in his 40s. currently patient denies any abdominal pain but does note some gastric fullness associated with nausea and vomiting of some undigested foods and clear liquids. Patient denies any diarrhea or constipation , no fevers. (Krys Sinha) [facility] Past Medical History Per the record PMH: HTN, Hyperlipidemia, CHF (Echo 01/03/2018 w/ EF 55-60%), COPD , CAD and DM Past Surgical History Per the record PAST SURGICAL HISTORY: Appendectomy, Cardiac Stent, , Tonsillectomy, Left Ganglion Cyst EGD (Krys Sinha) Coded Allergies: propoxyphene (Verified Allergy, Mild, RASH, 03/03/18) Family History PAST FAMILY HISTORY: Reviewed. No h/o DM or CAD Social History PAST SOCIAL HISTORY: Negative for alcohol, tobacco or drugs (Krys Sinha) Review of Systems Gastrointestinal: COMPLAINS OF: Nausea, Vomiting (Krys Sinha) GI Exam Vitals I&O Vital Signs Date Time Temp Pulse Resp B/P (MAP) Pulse Ox O2 Delivery O2 Flow Rate FiO2 04/22/18 07:15 98 Nasal Cannula 2.00 04/22/18 07:15 98.0 79 16 150/70 (96) 98 04/22/18 07:00 61 04/22/18 06:11 61 04/22/18 05:00 62 04/22/18 04:00 66 04/22/18 03:59 97 Nasal Cannula 2.00 04/22/18 03:59 98.4 66 17 193/90 (124) 97 04/22/18 03:00 81 04/22/18 02:06 82 04/22/18 01:23 81 04/22/18 00:00 80 04/21/18 23:57 96 Nasal Cannula 2.00 04/21/18 23:57 97.8 84 21 171/90 (117) 96 04/21/18 23:00 84 04/21/18 22:21 95 Nasal Cannula 2.00 04/21/18 22:21 97.8 84 20 180/90 (120) 95 04/21/18 22:08 18 04/21/18 22:00 84 04/21/18 21:00 64 04/21/18 20:06 96 Nasal Cannula 2.00 04/21/18 20:00 62 04/21/18 19:58 16 04/21/18 19:00 63 04/21/18 18:00 62 04/21/18 17:50 98.0 63 16 146/73 (97) 98 04/21/18 17:00 64 04/21/18 13:28 98.0 61 16 180/98 (125) 96 04/21/18 13:00 60 04/21/18 12:00 62 04/21/18 11:40 96 Nasal Cannula 2.00 04/21/18 11:00 61 04/21/18 11:00 98.0 61 18 162/80 (107) 96 I/O 04/21/18 04/21/18 04/21/18 04/22/18 04/22/18 04/22/18 07:00 15:00 23:00 07:00 15:00 23:00 Intake Total 240 ml 240 ml Output Total 550 ml 2000 ml 1100 ml Balance -310 ml -2000 ml -860 ml Intake Oral 240 ml 240 ml Output Urine Total 550 ml 1000 ml Emesis 100 ml Hemodialysis 2000 ml Imaging Last Impressions Catheter Placement X-Ray 04/21/18 0000 Signed Impressions: CONCLUSION: 1. Uncomplicated line placement as above. Head CT 04/10/18 0000 Signed Impressions: Service Date/Time: Tuesday, April 10, 2018 18:05 - CONCLUSION: No acute intracranial disease. Je Fletcher MD Chest X-Ray 04/09/18 1731 Signed Impressions: Service Date/Time: Monday, April 09, 2018 17:45 - CONCLUSION: 1. Increased interstitial markings bilaterally suggesting pulmonary edema. 2. There is continued consolidation left lower lung suggestive of infiltrate and effusion. 3. There is a small to moderate right-sided effusion David Lezama MD Physical Examination HEENT:normocephalic; atraumatic; partial edentulous no jaundice. Mild paleness NECK: Neck is supple, no JVD, no lymphadenopathy. CHEST: Mild diminished breath sounds especially in the bases CARDIAC: Regular rhythm and rate ABDOMEN: Round, soft, no major distention, mild gastric discomfort with light palpation otherwise no abdominal pain; no hepatosplenomegaly; bowel sounds are present/gurgling EXTREMITIES: No edema. SKIN: Dry, no rash; no jaundice. 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 Answers simple questions appropriately (Krys Sinha) Assessment and Plan Assessment: (1) GERD (gastroesophageal reflux disease) ICD Codes: K21.9 - Gastro-esophageal reflux disease without esophagitis Status: Chronic (2) Gastritis ICD Codes: K29.70 - Gastritis, unspecified, without bleeding Status: Acute (3) Anemia, iron deficiency ICD Codes: D50.9 - Iron deficiency anemia, unspecified Status: Chronic (4) Nausea & vomiting ICD Codes: R11.2 - Nausea with vomiting, unspecified Status: Resolved (5) Diabetes mellitus ICD Codes: E11.9 - Type 2 diabetes mellitus without complications Status: Chronic Plan 67-year-old female with multiple comorbidities including COPD congestive heart failure, diabetes history of GERD history of gastric AVM and end-stage renal disease currently on hemodialysis. Patient started nausea and vomiting uncontrolled symptoms 24-48 hours ago, and had remnants of the same food in her belly up to 12 hours. Patient states she ate peanut butter the night before and vomited the peanut butter the next a.m. The symptoms could be related to gastroparesis but according to the records patient had gastric AVM and had EGD with Dr. Lang. Current hemoglobin is 10.7 no obvious hematemesis or melena. Patient did have symptomatic anemia 7.2 on 519 and was transfused with 1 unit of packed RBCs now hemoglobin continues to rise on a daily basis. Patient also notes colonoscopy done with last EGD, history of polyps and positive family history of colon cancer dad in his 40s. Plan Consent for EGD today this p.m. Currently n.p.o. Monitor labs with special attention to hemoglobin Reglan IV for nausea and vomiting, antiemetics IV PPI Further recommendations to follow Patient was seen per myself and Dr. Francis note was written on his behalf (Krys Sinha) Physician Comments Patient seen and examined Agree with above Continue with current supportive care Monitor labs Plan on an EGD today (Pablo Francis MD) Krys Sinha April 22, 2018 10:52 Pablo Francis MD April 22, 2018 12:23
[2018-04-22] MEDS ORDERED: PROPOFOL 200 MG/20 ML AMP IV ONE (12:00)
[2018-04-22] MEDS: NYSTATIN SUSP 500,000 U/5 ML CUP SWISH-SWAL SCH ×3 (12:54→22:52)
[2018-04-22] MEDS: HEPARIN SODIUM - IV 10,000 UNITS/10 ML VIAL PRN (13:19)
[2018-04-22] MEDS: GENTAMICIN SULFATE 20 MG/2 ML VIAL OTHER PRN (13:20)
--- NOTE | 2018-04-22 14:45 | HHI.PR ---
Subjective Remarks 67 YOWF with COPD,Hypoxia,CHF,CKD Feels much better no CP No new complaint" Weaned to NC Had HD, doing well Objective Vital Signs Vital Signs Date Time Temp Pulse Resp B/P (MAP) Pulse Ox O2 Delivery O2 Flow Rate FiO2 04/22/18 14:00 78 04/22/18 13:00 80 04/22/18 12:00 96 Nasal Cannula 2.00 04/22/18 12:00 98.8 69 18 143/71 (95) 94 04/22/18 12:00 80 04/22/18 11:00 80 04/22/18 10:00 78 04/22/18 09:00 80 04/22/18 08:00 60 04/22/18 07:45 98 Nasal Cannula 2.00 04/22/18 07:15 98 Nasal Cannula 2.00 04/22/18 07:15 98.0 79 16 150/70 (96) 98 04/22/18 07:00 61 04/22/18 06:11 61 04/22/18 05:00 62 04/22/18 04:00 66 04/22/18 03:59 97 Nasal Cannula 2.00 04/22/18 03:59 98.4 66 17 193/90 (124) 97 04/22/18 03:00 81 04/22/18 02:06 82 04/22/18 01:23 81 04/22/18 00:00 80 04/21/18 23:57 96 Nasal Cannula 2.00 04/21/18 23:57 97.8 84 21 171/90 (117) 96 04/21/18 23:00 84 04/21/18 22:21 95 Nasal Cannula 2.00 04/21/18 22:21 97.8 84 20 180/90 (120) 95 04/21/18 22:08 18 04/21/18 22:00 84 04/21/18 21:00 64 04/21/18 20:06 96 Nasal Cannula 2.00 04/21/18 20:00 62 04/21/18 19:58 16 04/21/18 19:00 63 04/21/18 18:00 62 04/21/18 17:50 98.0 63 16 146/73 (97) 98 04/21/18 17:00 64 I/O 5/24/18 04/21/18 04/21/18 04/22/18 04/22/18 04/22/18 07:00 15:00 23:00 07:00 15:00 23:00 Intake Total 240 ml 240 ml Output Total 550 ml 2000 ml 1100 ml 1000 ml Balance -310 ml -2000 ml -860 ml -1000 ml Intake Oral 240 ml 240 ml Output Urine Total 550 ml 1000 ml Emesis 100 ml Hemodialysis 2000 ml 1000 ml Result Diagram: 04/20/18 0915 04/21/18 0601 Objective Remarks GENERAL: MBMNWF, mild sob SKIN: Warm and dry. HEAD: Normocephalic. EYES: No scleral icterus. No injection or drainage. NECK: Supple, trachea midline. No JVD or lymphadenopathy. CARDIOVASCULAR: Regular rate and rhythm without murmurs, gallops, or rubs. RESPIRATORY: Breath sounds equal bilaterally. No accessory muscle use. GASTROINTESTINAL: Abdomen soft, non-tender, nondistended. MUSCULOSKELETAL: No cyanosis, ++ edema. BACK: Nontender without obvious deformity. No CVA tenderness. A/P Assessment and Plan IMPRESSION: 1. Respiratory insufficiency. 2. Congestive heart failure. 3. Pleural effusion. 4. Worsening renal functions. 5. Coronary artery disease status post stent placement. PLAN: Supplement 02 with NC Diurease . Aerosol nebs q 2 hrs prn Cont Abx Monitor pl eff Pred 20 mg bid Aaron Blankenship MD April 22, 2018 14:45
[2018-04-22] MEDS ORDERED: DO NOT ADM ANY ANTICOAGULANT DRUGS PRN ×2 (16:08→16:48)
--- NOTE | 2018-04-22 17:01 | PD.PROCEDR ---
GI Procedure PROCEDURE PERFORMED EGD with biopsy INDICATION FOR PROCEDURE Nausea, vomiting, anemia PROCEDURE: The procedure, risks and benefits were discussed with Patient/POA and informed consent was obtained. Anesthesia sedated Patient with Diprivan. Patient was placed in the left lateral decubitus position. EGD: The Pentax videoscope was introduced through the oropharynx and advanced to the second portion of the duodenum under direct visualization. Retroflexion was performed in the stomach. FINDINGS: The esophagus this appeared to be unremarkable and within normal limits The stomach there was diffuse patchy erythema mostly in the gastric body and antrum no ulcerations no erosions no blood or bleeding biopsies were taken for further evaluation The duodenum this appeared to be unremarkable random biopsies were taken for further evaluation ESTIMATED BLOOD LOSS: None SPECIMENS REMOVED: Gastric and duodenal biopsies COMPLICATIONS: None IMPRESSION: Pelaez gastritis PLAN: Await biopsies Continue PPI Advance diet as tolerated Monitor lab Pablo Francis MD April 22, 2018 17:01
[2018-04-22] MEDS ORDERED: ENALAPRILAT 1.25 MG/ML VIAL ONE (17:15)
[2018-04-22] MEDS ORDERED: hydrALAZINE HCL 20 MG/ML VIAL ONE (17:24)
[2018-04-22] MEDS ORDERED: hydrALAZINE HCL 20 MG/ML VIAL IV ONE (18:00)
[2018-04-22] MEDS: NIFEdipine 30 MG SUSTAINED RELEASE TAB PO SCH (22:52)
[2018-04-22] MEDS: ATORVASTATIN 40 MG TAB PO SCH (22:52)
[2018-04-23] VITALS (14 sets, daily range): BP systolic 113–167; BP diastolic 54–73; PULSE 63–99; RESP 16–20; TEMP 97.6–98.4; O2SAT 90–95
[2018-04-23] MEDS: ACETAMINOPHEN/HYDROcodone 325 MG/5 MG TAB PO PRN (03:14)
[2018-04-23] MEDS: SODIUM CHLORIDE 0.65% NASAL DRP/SPRY 30 ML BTL EACH NARE SCH ×6 (03:17→20:00)
[2018-04-23 05:38] LABS: MEAN CELL VOLUME 93.1 FL (80.0-100.0); MEAN CORPUSCULAR HGB CONC 33.4 % (32.0-36.0); PLATELET COUNT 205 TH/MM3 (150-450); RED BLOOD COUNT 3.55 MIL/MM3 (4.00-5.30); RED CELL DISTRIBUTION WIDTH 17.6 % (11.6-17.2); WHITE BLOOD COUNT 10.1 TH/MM3 (4.0-11.0)
[2018-04-23] MEDS: hydrALAZINE HCL 50 MG TAB PO SCH ×3 (06:34→22:27)
[2018-04-23] MEDS: ISOSORBIDE MONONITRATE 60 MG CR TAB (IMDUR) PO SCH (09:57)
[2018-04-23] MEDS: CALCIUM ACETATE 667 MG CAP PO SCH ×3 (09:57→17:14)
[2018-04-23] MEDS: CARVEDILOL 6.25 MG TAB PO SCH ×2 (09:57→22:28)
[2018-04-23] MEDS: predniSONE 10 MG TAB PO SCH ×2 (09:57→22:27)
[2018-04-23] MEDS: ASPIRIN 81 MG CHEW TAB CHEW SCH (09:57)
[2018-04-23] MEDS: FERROUS SULFATE 325 MG (65 MG ELEMENTAL IRON) TAB PO SCH ×2 (09:57→22:27)
[2018-04-23] MEDS: guaiFENesin E.R. 600 MG TAB PO SCH ×2 (09:57→22:27)
[2018-04-23] MEDS: NYSTATIN SUSP 500,000 U/5 ML CUP SWISH-SWAL SCH ×4 (09:57→22:28)
[2018-04-23] MEDS: DOCUSATE SODIUM 50 MG/SENNA 8.6 MG TAB PO SCH ×2 (09:57→21:00)
[2018-04-23] MEDS: BUDESONIDE-FORMOTEROL 160/4.5 MCG INHALER INH SCH ×2 (09:58→21:00)
[2018-04-23] MEDS: FUROSEMIDE 80 MG TAB PO SCH (09:58)
[2018-04-23] MEDS: SODIUM CHLORIDE 0.9% FLUSH 10 ML FLUSH IV FLUSH SCH ×2 (09:58→22:29)
[2018-04-23] MEDS: INSULIN DETEMIR 100 UNITS/ML VIAL SQ SCH ×2 (09:59→22:26)
[2018-04-23] MEDS: PANTOPRAZOLE SODIUM 40 MG VIAL IV PUSH SCH (10:04)
[2018-04-23] MEDS: NIFEdipine 30 MG SUSTAINED RELEASE TAB PO SCH ×2 (10:04→22:26)
[2018-04-23] MEDS: INSULIN ASPART SUPPLEMENTAL SCALE SQ SCH ×4 (10:05→22:25)
--- NOTE | 2018-04-23 10:24 | HHI.NPPN ---
Subjective History of Present Illness This is a 67-year-old female known to me from before with a past medical history of ischemic heart disease, congestive heart failure with diastolic dysfunction, chronic obstructive pulmonary disease, recurrent pleural effusion, diabetes mellitus, chronic kidney disease,with advanced stage IV renal disease, who came to the hospital with a complaint of shortness of breath.Nephrology was called to see the patient because of her high BUN and creatinine. The patient has a known history of chronic kidney disease. She has been following with me and was admitted last month and at that time, her creatinine was as high as 3.0 and she was started on dialysis mainly for the fluid removal and now she came with a creatinine of 2.8. She was discharged with the serum creatinine of 2.8 to 2.9. She was taking her diuretics and according to her, she was watching her fluid and not drinking more than 40 ounces a day. Gradually, she saw her breathing has been getting worse and she has a cough with whitish sputum. She denies any chest pain. No palpitation. Additional Remarks Seen during hemodialysis. Review of Systems General Constitutional: Fatigue Respiratory Lungs: SOB Respiratory Remarks improved Cardiovascular Cardiac: Edema, KAMARA Gastrointestinal GI Remarks Denies abdominal pain Objective Data Data Vital Signs Date Time Temp Pulse Resp B/P (MAP) Pulse Ox O2 Delivery O2 Flow Rate FiO2 04/23/18 09:34 95 Nasal Cannula 3.00 04/23/18 08:25 75 04/23/18 08:24 70 04/23/18 04:00 98.0 76 20 167/73 (104) 95 04/23/18 00:00 98.2 83 20 153/62 (92) 95 04/22/18 23:00 96 2.00 04/22/18 20:00 98.3 80 20 182/80 (114) 97 04/22/18 18:00 76 04/22/18 17:45 79 12 164/67 (99) 95 Nasal Cannula 3 04/22/18 17:30 97.5 79 14 180/78 (112) 96 Nasal Cannula 3 04/22/18 17:15 78 13 206/85 (125) 96 Nasal Cannula 3 04/22/18 17:00 58 14 171/59 (96) 93 Nasal Cannula 3 04/22/18 16:53 97.4 58 14 172/75 (107) 92 Nasal Cannula 2 04/22/18 15:15 98 Nasal Cannula 3.00 04/22/18 15:15 98.0 72 16 161/85 (110) 98 04/22/18 14:00 78 04/22/18 13:00 80 04/22/18 12:00 96 Nasal Cannula 2.00 04/22/18 12:00 98.8 69 18 143/71 (95) 94 04/22/18 12:00 80 04/22/18 11:00 80 -: 04/23/18 0449 04/21/18 0601 Tubes & Lines: Vas-Cath, Lim Tubes & Lines Comment Right IJ Physical Exam General Appearance: No Acute Distress, Comfortable Pulmonary Resp Exam: Breath Sounds Equal, No Distress, Decreased Bases Cardiology CV Exam: Regular Gastrointestinal/Abdomen GI Exam: Non-Tender, Bowel Sounds Present Genitourinary Exam: Flank Non-Tender Integumentary Skin Exam: Clear, Warm Extremeties Extremities Exam: Moderate Edema, Pitting Edema, Dependent Edema Neurologic Neuro Exam: Alert, Awake, Oriented Psychiatric Psych Exam: Appropriate Responses Assessment/Plan Discussed Condition With: Patient Assessment Summary: Fluid/Volume Overload Problem List: (1) Chronic kidney disease (CKD) stage G4/A1, severely decreased glomerular filtration rate (GFR) between 15-29 mL/min/1.73 square meter and albuminuria creatinine ratio less than 30 mg/g ICD Codes: N18.4 - Chronic kidney disease, stage 4 (severe) Plan: Patient has chronic kidney disease stage IV with a GFR of 16 to 17 which has now progressed to end stage renal disease. Plan Lasix decreased to 80 mg daily. Metolazone discontinued Will discontinue indwelling Lim catheter Avoid fluid administration Avoid nephrotoxins Vas cath placement in right IJ, Effient is on hold. Plan for permacath in left IJ when able. Creatinine at 3.24 and GFR 14ml/min Hemodialysis started on 04/21 May consider for AV access when stable. Case management consulted to facilitate setting up outpatient dialysis. (2) Diastolic CHF, acute ICD Codes: I50.31 - Acute diastolic (congestive) heart failure Plan: continue lasix (3) Hypertension ICD Codes: I10 - Essential (primary) hypertension Plan: Blood pressure elevated Procardia XL increased (4) Nausea & vomiting ICD Codes: R11.2 - Nausea with vomiting, unspecified Plan: GI consulted Rigoberto Blue MD April 23, 2018 10:24
--- NOTE | 2018-04-23 11:26 | HHI.PR ---
Subjective Remarks Patient says she is feeling all right. Denies any chest pain shortness of breath. Denies nausea or vomiting. She reports some pain over the right posterior heel Objective Vital Signs Date Time Temp Pulse Resp B/P (MAP) Pulse Ox O2 Delivery O2 Flow Rate FiO2 04/23/18 09:34 95 Nasal Cannula 3.00 04/23/18 08:25 75 04/23/18 08:24 70 04/23/18 04:00 98.0 76 20 167/73 (104) 95 04/23/18 00:00 98.2 83 20 153/62 (92) 95 04/22/18 23:00 96 2.00 04/22/18 20:00 98.3 80 20 182/80 (114) 97 04/22/18 18:00 76 04/22/18 17:45 79 12 164/67 (99) 95 Nasal Cannula 3 04/22/18 17:30 97.5 79 14 180/78 (112) 96 Nasal Cannula 3 04/22/18 17:15 78 13 206/85 (125) 96 Nasal Cannula 3 04/22/18 17:00 58 14 171/59 (96) 93 Nasal Cannula 3 04/22/18 16:53 97.4 58 14 172/75 (107) 92 Nasal Cannula 2 04/22/18 15:15 98 Nasal Cannula 3.00 04/22/18 15:15 98.0 72 16 161/85 (110) 98 04/22/18 14:00 78 04/22/18 13:00 80 04/22/18 12:00 96 Nasal Cannula 2.00 04/22/18 12:00 98.8 69 18 143/71 (95) 94 04/22/18 12:00 80 I/O 04/22/18 04/22/18 04/22/18 04/23/18 04/23/18 04/23/18 07:00 15:00 23:00 07:00 15:00 23:00 Intake Total 240 ml 200 ml Output Total 1100 ml 1000 ml 1150 ml 200 ml Balance -860 ml -1000 ml -950 ml -200 ml Intake Oral 240 ml 100 ml IV Total 50 ml Other 50 ml Output Urine Total 1000 ml 1150 ml 200 ml Emesis 100 ml Hemodialysis 1000 ml Bladder Scan Volume Amount 235 ml 99 ml Result Diagram: 04/23/18 0449 04/21/18 0601 Objective Remarks GENERAL: She is sitting up in bed. Appears comfortable. Alert and oriented 3. SKIN: Warm and dry. HEAD: Normocephalic. EYES: No scleral icterus. No injection or drainage. NECK: Supple, trachea midline. No JVD. CARDIOVASCULAR: Regular rate and rhythm without murmurs, gallops, or rubs. RESPIRATORY: Distant breath sounds secondary to body habitus. Sounds to be faint crackles in bases. No accessory muscle use. GASTROINTESTINAL: Abdomen soft, non-tender, nondistended. MUSCULOSKELETAL: No cyanosis. Still with +2 edema as yesterday. No broken skin. Patient does have right lower extremity chronic healing ulcer as before. Appears scabbed over without any surrounding erythema or drainage. Patient also with right posterior heel stage I venous stasis ulcer. No broken skin. BACK: Nontender without obvious deformity. No CVA tenderness. A/P Assessment and Plan //COPD: Chronic Respiratory Failure w/ Acute Exacerbation,- patient 02 dependent //Hypoxemic respiratory failure - change to po Prednisone 20 mgpo bid today 04/20- continye taper -cotninue , Symbicort, DuoNeb, Mucinex. Pt home Nebulizer broken will need replacement on return home. = Shortness of breath improving. Continue diuresis, treatment for COPD. - NC 2 LNC- patient on chronic 02 //Left eye visual deficit. 2 day history without any pain. She says this appears to be improving somewhat. = CT head negative for acute process. Ophthalmology consult appreciated = Patient will need follow-up with ophthalmology as outpatient for laser ablation. //Anemia. 7.7. Likely secondary to anemia of chronic kidney disease. Consult nephrology as patient may require erythropoietin.transfuse as needed for Hgb <7 or if hemodynamically unstable. = AROLDO globin continues stable at 11.0 // CHF: Acute on Chronic. Diastolic. Echo 01/03/18 w/ EF 55-60%, CXR w/ interstitial edema, h/o pleural effusion LLL w/ continued effusion, small to moderate right effusion, s/p Lasix in ER, Hypertension - elevated readings on diuresis Lasix 80 mg IV q 8 , monitor I/O. = cont fluid restriction. Strict intake and output. Continue to monitor - should improve when HD initiated - increase hydralazine to 100 mg tid, - continue coreg/CCB. Nitrates - increase doses = Improved on dialysis. //Chronic kidney disease - Nephrology ff . ON IV Lasix q 8 + Metolazone. decrease lasix to 80 mg bid // Hyperkalemia: Resolved patient was on Effiant and permcath can't be done = Effiant held today 04/21 = Dialysis as per nephrology. Appreciate assistance. // DM: Sliding scale w/ Accu-Cheks, - high readings on steroids resume home Levemir. - Increaase dose 8 units bid = sliding scale. = 04/23. Glucose elevated in the 300s this morning. Likely secondary to patient refusal of Levemir. No use increasing as this is secondary to patient refusing. Will industrial relations counselor. //Persistent Nausea and vomiting- ? uremic symptoms- but patient already getting HD abdominal exam- benign - get GI consult today for evaluation ?EGD -start PPI = Appears improved. Pending GI evaluation. // DVT Prophylaxis: SCD/Teds Discharge Planning Pending improvement. now on [place]. may need SNF/rehab on discharge. = Will need follow-up with ophthalmology for laser ablation =case management following. Appreciate assistance. = Will need clearance by nephrology. Patient will likely need dialysis as outpatient. Timi Koehler MD April 23, 2018 11:26
--- NOTE | 2018-04-23 12:33 | HHI.PR ---
Subjective Remarks 67 YOWF with COPD,Hypoxia,CHF,CKD Feels much better no CP No new complaint" Weaned to NC Breathing better Objective Vital Signs Vital Signs Date Time Temp Pulse Resp B/P (MAP) Pulse Ox O2 Delivery O2 Flow Rate FiO2 04/23/18 09:34 95 Nasal Cannula 3.00 04/23/18 08:25 75 04/23/18 08:24 70 04/23/18 04:00 98.0 76 20 167/73 (104) 95 04/23/18 00:00 98.2 83 20 153/62 (92) 95 04/22/18 23:00 96 2.00 04/22/18 20:00 98.3 80 20 182/80 (114) 97 04/22/18 18:00 76 04/22/18 17:45 79 12 164/67 (99) 95 Nasal Cannula 3 04/22/18 17:30 97.5 79 14 180/78 (112) 96 Nasal Cannula 3 04/22/18 17:15 78 13 206/85 (125) 96 Nasal Cannula 3 04/22/18 17:00 58 14 171/59 (96) 93 Nasal Cannula 3 04/22/18 16:53 97.4 58 14 172/75 (107) 92 Nasal Cannula 2 04/22/18 15:15 98 Nasal Cannula 3.00 04/22/18 15:15 98.0 72 16 161/85 (110) 98 04/22/18 14:00 78 04/22/18 13:00 80 I/O 04/22/18 04/22/18 04/22/18 04/23/18 04/23/18 04/23/18 07:00 15:00 23:00 07:00 15:00 23:00 Intake Total 240 ml 200 ml Output Total 1100 ml 1000 ml 1150 ml 200 ml Balance -860 ml -1000 ml -950 ml -200 ml Intake Oral 240 ml 100 ml IV Total 50 ml Other 50 ml Output Urine Total 1000 ml 1150 ml 200 ml Emesis 100 ml Hemodialysis 1000 ml Bladder Scan Volume Amount 235 ml 99 ml Result Diagram: 04/23/18 0449 04/21/18 0601 Objective Remarks GENERAL: MBMNWF, mild sob SKIN: Warm and dry. HEAD: Normocephalic. EYES: No scleral icterus. No injection or drainage. NECK: Supple, trachea midline. No JVD or lymphadenopathy. CARDIOVASCULAR: Regular rate and rhythm without murmurs, gallops, or rubs. RESPIRATORY: Breath sounds equal bilaterally. No accessory muscle use. GASTROINTESTINAL: Abdomen soft, non-tender, nondistended. MUSCULOSKELETAL: No cyanosis, ++ edema. BACK: Nontender without obvious deformity. No CVA tenderness. A/P Assessment and Plan IMPRESSION: 1. Respiratory insufficiency. 2. Congestive heart failure. 3. Pleural effusion. 4. Worsening renal functions. 5. Coronary artery disease status post stent placement. PLAN: Supplement 02 with NC Diurease . Aerosol nebs q 2 hrs prn Cont Abx Monitor pl eff Pred 20 mg bid HD per Renal. Aaron Blankenship MD April 23, 2018 12:33
--- NOTE | 2018-04-23 15:57 | HHI.GIFU ---
Subjective Remarks Pt is sitting up in bed, denies any GI issues (Jamarcus Osullivan) Objective Vitals I&O Vital Signs Date Time Temp Pulse Resp B/P (MAP) Pulse Ox O2 Delivery O2 Flow Rate FiO2 04/23/18 12:00 97.8 71 17 153/69 (97) 95 04/23/18 09:34 95 Nasal Cannula 3.00 04/23/18 08:25 75 04/23/18 08:24 70 04/23/18 08:00 97.6 66 17 164/71 (102) 94 04/23/18 04:00 98.0 76 20 167/73 (104) 95 04/23/18 00:00 98.2 83 20 153/62 (92) 95 04/22/18 23:00 96 2.00 04/22/18 20:00 98.3 80 20 182/80 (114) 97 04/22/18 18:00 76 04/22/18 17:45 79 12 164/67 (99) 95 Nasal Cannula 3 04/22/18 17:30 97.5 79 14 180/78 (112) 96 Nasal Cannula 3 04/22/18 17:15 78 13 206/85 (125) 96 Nasal Cannula 3 04/22/18 17:00 58 14 171/59 (96) 93 Nasal Cannula 3 04/22/18 16:53 97.4 58 14 172/75 (107) 92 Nasal Cannula 2 I/O 04/22/18 04/22/18 04/22/18 04/23/18 04/23/18 04/23/18 07:00 15:00 23:00 07:00 15:00 23:00 Intake Total 240 ml 200 ml Output Total 1100 ml 1000 ml 1150 ml 200 ml Balance -860 ml -1000 ml -950 ml -200 ml Intake Oral 240 ml 100 ml IV Total 50 ml Other 50 ml Output Urine Total 1000 ml 1150 ml 200 ml Emesis 100 ml Hemodialysis 1000 ml Bladder Scan Volume Amount 235 ml 99 ml Laboratory Laboratory Tests Test 04/23/18 04:49 White Blood Count 10.1 Red Blood Count 3.55 Hemoglobin 11.0 Hematocrit 33.0 Mean Corpuscular Volume 93.1 Mean Corpuscular Hemoglobin 31.0 Mean Corpuscular Hemoglobin Concent 33.4 Red Cell Distribution Width 17.6 Platelet Count 205 Mean Platelet Volume 8.0 Imaging Last Impressions Catheter Placement X-Ray 04/21/18 0000 Signed Impressions: CONCLUSION: 1. Uncomplicated line placement as above. Head CT 04/10/18 0000 Signed Impressions: Service Date/Time: Tuesday, April 10, 2018 18:05 - CONCLUSION: No acute intracranial disease. Je Fletcher MD Chest X-Ray 04/09/18 1731 Signed Impressions: Service Date/Time: Monday, April 09, 2018 17:45 - CONCLUSION: 1. Increased interstitial markings bilaterally suggesting pulmonary edema. 2. There is continued consolidation left lower lung suggestive of infiltrate and effusion. 3. There is a small to moderate right-sided effusion David Lezama MD Physical Exam HEENT: normocephalic; atraumatic; no jaundice. Throat is clear. CHEST: Chest is clear to auscultation and percussion. CARDIAC: Regular rate and rhythm with no murmur gallop or rubs. ABDOMEN: Soft, nondistended, nontender; no hepatosplenomegaly; bowel sounds are present in all four quadrants. EXTREMITIES: No clubbing, cyanosis, or edema. SKIN: Normal; no rash; no jaundice. CLINICAL RESEARCH ASSOCIATE: alert and oriented. (Jamarcus Osullivan) Assessment and Plan Assessment: (1) GERD (gastroesophageal reflux disease) ICD Codes: K21.9 - Gastro-esophageal reflux disease without esophagitis Status: Chronic (2) Gastritis ICD Codes: K29.70 - Gastritis, unspecified, without bleeding Status: Acute (3) Anemia, iron deficiency ICD Codes: D50.9 - Iron deficiency anemia, unspecified Status: Chronic (4) Nausea & vomiting ICD Codes: R11.2 - Nausea with vomiting, unspecified Status: Resolved (5) Diabetes mellitus ICD Codes: E11.9 - Type 2 diabetes mellitus without complications Status: Chronic Plan 67-year-old female with multiple comorbidities including COPD congestive heart failure, diabetes history of GERD history of gastric AVM and end-stage renal disease currently on hemodialysis. Patient started nausea and vomiting uncontrolled symptoms 24-48 hours ago, and had remnants of the same food in her belly up to 12 hours. Patient states she ate peanut butter the night before and vomited the peanut butter the next a.m. The symptoms could be related to gastroparesis but according to the records patient had gastric AVM and had EGD with Dr. Lang. Current hemoglobin is 10.7 no obvious hematemesis or melena. Patient did have symptomatic anemia 7.2 on 519 and was transfused with 1 unit of packed RBCs now hemoglobin continues to rise on a daily basis. Patient also notes colonoscopy done with last EGD, history of polyps and positive family history of colon cancer dad in his 40s. (04/23) S/p EGD on 04/22/18 showed pangastritis, bx pending Plan AURA Monitor hh Await bx Reglan IV for nausea and vomiting, antiemetics IV PPI Further recommendations to follow Patient was seen per myself and Dr. Francis note was written on his behalf (Jamarcus Osullivan) Physician Comments Patient seen and examined Agree with above Continue with current supportive care Monitor labs Advance diet and if tolerated patient may be discharged from a GI standpoint follow-up with GI post discharge Awaiting biopsy Switch to oral PPI (Pablo Francis MD) Jamarcus Osullivan April 23, 2018 15:57 Pablo Francis MD April 23, 2018 18:50
[2018-04-23] MEDS: ATORVASTATIN 40 MG TAB PO SCH (22:27)
[2018-04-23] MEDS: PANTOPRAZOLE SOD 40 MG DELAYED RELEASE TAB PO SCH (22:28)
[2018-04-24] VITALS (11 sets, daily range): BP systolic 134–164; BP diastolic 59–74; PULSE 59–86; RESP 16–18; TEMP 97.6–98.4; O2SAT 94–97
[2018-04-24] MEDS: ACETAMINOPHEN/HYDROcodone 325 MG/5 MG TAB PO PRN (00:28)
[2018-04-24] MEDS: SODIUM CHLORIDE 0.65% NASAL DRP/SPRY 30 ML BTL EACH NARE SCH ×6 (04:00→20:00)
[2018-04-24] MEDS: hydrALAZINE HCL 50 MG TAB PO SCH ×3 (05:59→22:07)
[2018-04-24] MEDS: INSULIN ASPART SUPPLEMENTAL SCALE SQ SCH ×4 (08:00→22:08)
[2018-04-24] MEDS: BUDESONIDE-FORMOTEROL 160/4.5 MCG INHALER INH SCH ×2 (09:00→21:00)
[2018-04-24] MEDS: DOCUSATE SODIUM 50 MG/SENNA 8.6 MG TAB PO SCH ×3 (09:00→21:00)
[2018-04-24] MEDS: ASPIRIN 81 MG CHEW TAB CHEW SCH (09:07)
[2018-04-24] MEDS: guaiFENesin E.R. 600 MG TAB PO SCH ×2 (09:07→22:07)
[2018-04-24] MEDS: FUROSEMIDE 80 MG TAB PO SCH (09:07)
[2018-04-24] MEDS: ISOSORBIDE MONONITRATE 60 MG CR TAB (IMDUR) PO SCH (09:07)
[2018-04-24] MEDS: predniSONE 10 MG TAB PO SCH ×2 (09:08→22:07)
[2018-04-24] MEDS: CARVEDILOL 6.25 MG TAB PO SCH ×2 (09:08→22:06)
[2018-04-24] MEDS: NIFEdipine 30 MG SUSTAINED RELEASE TAB PO SCH ×2 (09:08→22:06)
[2018-04-24] MEDS: PANTOPRAZOLE SOD 40 MG DELAYED RELEASE TAB PO SCH ×2 (09:08→22:05)
[2018-04-24] MEDS: CALCIUM ACETATE 667 MG CAP PO SCH ×3 (09:09→18:13)
[2018-04-24] MEDS: FERROUS SULFATE 325 MG (65 MG ELEMENTAL IRON) TAB PO SCH ×2 (09:09→22:07)
[2018-04-24] MEDS: SODIUM CHLORIDE 0.9% FLUSH 10 ML FLUSH IV FLUSH SCH ×2 (09:09→22:08)
[2018-04-24] MEDS: NYSTATIN SUSP 500,000 U/5 ML CUP SWISH-SWAL SCH ×4 (09:09→22:05)
[2018-04-24] MEDS: INSULIN DETEMIR 100 UNITS/ML VIAL SQ SCH ×2 (09:22→22:08)
--- NOTE | 2018-04-24 12:18 | HHI.PR ---
Subjective Remarks Patient says she is feeling well. Denies any chest pain or shortness of breath. Denies nausea or vomiting. Objective Vital Signs Date Time Temp Pulse Resp B/P (MAP) Pulse Ox O2 Delivery O2 Flow Rate FiO2 04/24/18 08:52 98.0 78 18 134/65 (88) 97 Manual Cuff/Auscultation 04/24/18 04:00 97.7 60 16 158/59 (92) 94 04/24/18 03:58 59 04/24/18 00:00 63 04/24/18 00:00 98.2 62 16 145/66 (92) 96 04/23/18 20:15 Nasal Cannula 2.00 04/23/18 20:00 98.4 94 16 156/63 (94) 95 04/23/18 19:58 65 04/23/18 18:18 95 Nasal Cannula 3.00 04/23/18 16:00 97.9 64 17 113/54 (73) 90 04/23/18 15:49 63 I/O 04/23/18 04/23/18 04/23/18 04/24/18 04/24/18 04/24/18 06:59 14:59 22:59 06:59 14:59 22:59 Intake Total 720 ml 360 ml Output Total 200 ml Balance -200 ml 720 ml 360 ml Intake Oral 720 ml 360 ml Output Urine Total 200 ml Bladder Scan Volume Amount 99 ml # Voids 1 1 # Bowel Movements 0 Result Diagram: 04/23/18 0449 04/21/18 0601 Objective Remarks GENERAL: She is sitting up in bed. Appears comfortable. Alert and oriented 3. SKIN: Warm and dry. HEAD: Normocephalic. EYES: No scleral icterus. No injection or drainage. NECK: Supple, trachea midline. No JVD. CARDIOVASCULAR: Regular rate and rhythm without murmurs, gallops, or rubs. RESPIRATORY: Distant breath sounds secondary to body habitus. Sounds to be faint crackles in bases. No accessory muscle use. GASTROINTESTINAL: Abdomen soft, non-tender, nondistended. MUSCULOSKELETAL: No cyanosis. Still with +2 edema as yesterday. No broken skin. Patient does have right lower extremity chronic healing ulcer as before. Appears scabbed over without any surrounding erythema or drainage. Patient also with right posterior heel stage I venous stasis ulcer. No broken skin. No change. BACK: Nontender without obvious deformity. No CVA tenderness. A/P Assessment and Plan //COPD: Chronic Respiratory Failure w/ Acute Exacerbation,- patient 02 dependent //Hypoxemic respiratory failure - change to po Prednisone 20 mgpo bid today 04/20- continye taper -cotninue , Symbicort, DuoNeb, Mucinex. Pt home Nebulizer broken will need replacement on return home. = Shortness of breath improving. Continue diuresis, treatment for COPD. - NC 2 LNC- patient on chronic 02 //Left eye visual deficit. 2 day history without any pain. She says this appears to be improving somewhat. = CT head negative for acute process. Ophthalmology consult appreciated = Patient will need follow-up with ophthalmology as outpatient for laser ablation. //Anemia. 7.7. Likely secondary to anemia of chronic kidney disease. Consult nephrology as patient may require erythropoietin.transfuse as needed for Hgb <7 or if hemodynamically unstable. = hg continues stable at 11.0 // CHF: Acute on Chronic. Diastolic. Echo 01/03/18 w/ EF 55-60%, CXR w/ interstitial edema, h/o pleural effusion LLL w/ continued effusion, small to moderate right effusion, s/p Lasix in ER, Hypertension - elevated readings on diuresis Lasix 80 mg IV q 8 , monitor I/O. = cont fluid restriction. Strict intake and output. Continue to monitor - should improve when HD initiated - increase hydralazine to 100 mg tid, - continue coreg/CCB. Nitrates - increase doses = Improved on dialysis. //Chronic kidney disease - Nephrology ff . ON IV Lasix q 8 + Metolazone. decrease lasix to 80 mg bid // Hyperkalemia: Resolved patient was on Effiant and permcath can't be done = Effiant held today 04/21 = Dialysis as per nephrology. Appreciate assistance. // DM: Sliding scale w/ Accu-Cheks, - high readings on steroids resume home Levemir. - Increaase dose 8 units bid = sliding scale. = 04/23. Glucose elevated in the 300s this morning. Likely secondary to patient refusal of Levemir. No use increasing as this is secondary to patient refusing. Will evp general counsel. //Persistent Nausea and vomiting- ? uremic symptoms- but patient already getting HD abdominal exam- benign - get GI consult today for evaluation ?EGD -start PPI = Pangastritis on biopsy. Appreciate GI assistance. Biopsies pending. Continue PPI. // DVT Prophylaxis: SCD/Teds Discharge Planning Pending improvement. now on [place]. may need SNF/rehab on discharge. = Will need follow-up with ophthalmology for laser ablation =case management following. Appreciate assistance. = Will need clearance by nephrology. Patient will likely need dialysis as outpatient. Timi Koehler MD April 24, 2018 12:17
--- NOTE | 2018-04-24 14:22 | HHI.NPPN ---
Subjective History of Present Illness This is a 67-year-old female known to me from before with a past medical history of ischemic heart disease, congestive heart failure with diastolic dysfunction, chronic obstructive pulmonary disease, recurrent pleural effusion, diabetes mellitus, chronic kidney disease,with advanced stage IV renal disease, who came to the hospital with a complaint of shortness of breath.Nephrology was called to see the patient because of her high BUN and creatinine. The patient has a known history of chronic kidney disease. She has been following with me and was admitted last month and at that time, her creatinine was as high as 3.0 and she was started on dialysis mainly for the fluid removal and now she came with a creatinine of 2.8. She was discharged with the serum creatinine of 2.8 to 2.9. She was taking her diuretics and according to her, she was watching her fluid and not drinking more than 40 ounces a day. Gradually, she saw her breathing has been getting worse and she has a cough with whitish sputum. She denies any chest pain. No palpitation. Additional Remarks Seen during hemodialysis. Review of Systems General Constitutional: Fatigue Respiratory Lungs: SOB Respiratory Remarks improved Cardiovascular Cardiac: Edema, KAMARA Gastrointestinal GI Remarks Denies abdominal pain Objective Data Data Vital Signs Date Time Temp Pulse Resp B/P (MAP) Pulse Ox O2 Delivery O2 Flow Rate FiO2 04/24/18 08:52 98.0 78 18 134/65 (88) 97 Manual Cuff/Auscultation 04/24/18 04:00 97.7 60 16 158/59 (92) 94 04/24/18 03:58 59 04/24/18 00:00 63 04/24/18 00:00 98.2 62 16 145/66 (92) 96 04/23/18 20:15 Nasal Cannula 2.00 04/23/18 20:00 98.4 94 16 156/63 (94) 95 04/23/18 19:58 65 04/23/18 18:18 95 Nasal Cannula 3.00 04/23/18 16:00 97.9 64 17 113/54 (73) 90 04/23/18 15:49 63 -: 04/23/18 0449 04/21/18 0601 Tubes & Lines: Vas-Cath, Lim Tubes & Lines Comment Right IJ Physical Exam General Appearance: No Acute Distress, Comfortable Pulmonary Resp Exam: Breath Sounds Equal, No Distress, Decreased Bases Cardiology CV Exam: Regular Gastrointestinal/Abdomen GI Exam: Non-Tender, Bowel Sounds Present Genitourinary Exam: Flank Non-Tender Integumentary Skin Exam: Clear, Warm Extremeties Extremities Exam: Moderate Edema, Pitting Edema, Dependent Edema Neurologic Neuro Exam: Alert, Awake, Oriented Psychiatric Psych Exam: Appropriate Responses Assessment/Plan Discussed Condition With: Patient Assessment Summary: Fluid/Volume Overload Problem List: (1) Chronic kidney disease (CKD) stage G4/A1, severely decreased glomerular filtration rate (GFR) between 15-29 mL/min/1.73 square meter and albuminuria creatinine ratio less than 30 mg/g ICD Codes: N18.4 - Chronic kidney disease, stage 4 (severe) Plan: Patient has chronic kidney disease stage IV with a GFR of 16 to 17 which has now progressed to end stage renal disease. Plan Lasix decreased to 80 mg daily. Metolazone discontinued Will discontinue indwelling Lim catheter Avoid fluid administration Avoid nephrotoxins Vas cath placement in right IJ, Effient is on hold. Plan for permacath in left IJ when able. Creatinine at 3.24 and GFR 14ml/min Hemodialysis started on 04/21 Dr. Toro to follow May consider for AV access when stable. Case management consulted to facilitate setting up outpatient dialysis. (2) Diastolic CHF, acute ICD Codes: I50.31 - Acute diastolic (congestive) heart failure Plan: continue lasix (3) Hypertension ICD Codes: I10 - Essential (primary) hypertension Plan: Blood pressure elevated Procardia XL increased (4) Nausea & vomiting ICD Codes: R11.2 - Nausea with vomiting, unspecified Plan: GI consulted Rigoberto Blue MD April 24, 2018 14:22
--- NOTE | 2018-04-24 17:57 | HHI.PR ---
Subjective Remarks 67 YOWF with COPD,Hypoxia,CHF,CKD Feels much better no CP Weaned to NC Breathing better Looks comfortable. Objective Vital Signs Vital Signs Date Time Temp Pulse Resp B/P (MAP) Pulse Ox O2 Delivery O2 Flow Rate FiO2 04/24/18 17:24 94 Nasal Cannula 2.00 04/24/18 12:00 97.7 62 18 152/70 (97) 95 04/24/18 08:52 98.0 78 18 134/65 (88) 97 Manual Cuff/Auscultation 04/24/18 04:00 97.7 60 16 158/59 (92) 94 04/24/18 03:58 59 04/24/18 00:00 63 04/24/18 00:00 98.2 62 16 145/66 (92) 96 04/23/18 20:15 Nasal Cannula 2.00 04/23/18 20:00 98.4 94 16 156/63 (94) 95 04/23/18 19:58 65 04/23/18 18:18 95 Nasal Cannula 3.00 I/O 04/23/18 04/23/18 04/23/18 04/24/18 04/24/18 04/24/18 07:00 15:00 23:00 07:00 15:00 23:00 Intake Total 720 ml 360 ml 480 ml Output Total 200 ml Balance -200 ml 720 ml 360 ml 480 ml Intake Oral 720 ml 360 ml 480 ml Output Urine Total 200 ml Bladder Scan Volume Amount 99 ml # Voids 1 1 2 # Bowel Movements 0 0 Result Diagram: 04/23/18 0449 04/21/18 0601 Objective Remarks GENERAL: MBMNWF, mild sob SKIN: Warm and dry. HEAD: Normocephalic. EYES: No scleral icterus. No injection or drainage. NECK: Supple, trachea midline. No JVD or lymphadenopathy. CARDIOVASCULAR: Regular rate and rhythm without murmurs, gallops, or rubs. RESPIRATORY: Breath sounds equal bilaterally. No accessory muscle use. GASTROINTESTINAL: Abdomen soft, non-tender, nondistended. MUSCULOSKELETAL: No cyanosis, ++ edema. BACK: Nontender without obvious deformity. No CVA tenderness. A/P Assessment and Plan IMPRESSION: 1. Respiratory insufficiency. 2. Congestive heart failure. 3. Pleural effusion. 4. Worsening renal functions. 5. Coronary artery disease status post stent placement. PLAN: Supplement 02 with NC Diurease . Aerosol nebs q 2 hrs prn Cont Abx Monitor pl eff Pred 20 mg bid Aaron Blankenship MD April 24, 2018 17:57
[2018-04-24] MEDS: ATORVASTATIN 40 MG TAB PO SCH (22:06)
[2018-04-25] VITALS (9 sets, daily range): BP systolic 133–178; BP diastolic 62–77; PULSE 61–79; RESP 14–20; TEMP 97.9–98.4; O2SAT 95–97
[2018-04-25] MEDS: ACETAMINOPHEN/HYDROcodone 325 MG/5 MG TAB PO PRN ×2 (02:14→23:00)
[2018-04-25] MEDS: SODIUM CHLORIDE 0.65% NASAL DRP/SPRY 30 ML BTL EACH NARE SCH ×4 (04:00→23:05)
[2018-04-25] MEDS: hydrALAZINE HCL 50 MG TAB PO SCH ×3 (05:16→23:01)
[2018-04-25 07:29] LABS: AUTOMATED NEUTROPHIL # 10.3 TH/MM3 (1.8-7.7); BASOPHIL % 0.2 % (0.0-2.0); EOSINOPHIL % 0.2 % (0.0-4.0); HEMATOCRIT 32.1 % (35.0-46.0); HEMOGLOBIN 10.6 GM/DL (11.6-15.3); LYMPH % 3.8 % (9.0-44.0); LYMPHOCYTE # 0.4 TH/MM3 (1.0-4.8); MEAN CELL VOLUME 92.9 FL (80.0-100.0); MEAN CORPUSCULAR HEMOGLOBIN 30.6 PG (27.0-34.0); MEAN CORPUSCULAR HGB CONC 32.9 % (32.0-36.0); MONO % 4.9 % (0.0-8.0); MONOCYTE # 0.6 TH/MM3 (0-0.9); NEUT % 90.9 % (16.0-70.0); PLATELET COUNT 219 TH/MM3 (150-450); RED BLOOD COUNT 3.46 MIL/MM3 (4.00-5.30); RED CELL DISTRIBUTION WIDTH 17.4 % (11.6-17.2); WHITE BLOOD COUNT 11.3 TH/MM3 (4.0-11.0)
[2018-04-25 07:37] LABS: BICARBONATE 26.5 MEQ/L (21.0-32.0); CALCIUM 8.5 MG/DL (8.5-10.1); CREATININE 2.66 MG/DL (0.50-1.00)
[2018-04-25] MEDS: INSULIN ASPART SUPPLEMENTAL SCALE SQ SCH ×3 (08:00→23:07)
[2018-04-25] MEDS: INSULIN DETEMIR 100 UNITS/ML VIAL SQ SCH ×2 (09:00→23:00)
[2018-04-25] MEDS: DOCUSATE SODIUM 50 MG/SENNA 8.6 MG TAB PO SCH ×2 (09:00→21:00)
[2018-04-25] MEDS: ASPIRIN 81 MG CHEW TAB CHEW SCH (09:16)
[2018-04-25] MEDS: CALCIUM ACETATE 667 MG CAP PO SCH ×3 (09:17→20:36)
[2018-04-25] MEDS: ISOSORBIDE MONONITRATE 60 MG CR TAB (IMDUR) PO SCH (09:17)
[2018-04-25] MEDS: NYSTATIN SUSP 500,000 U/5 ML CUP SWISH-SWAL SCH ×3 (09:17→23:05)
[2018-04-25] MEDS: guaiFENesin E.R. 600 MG TAB PO SCH ×2 (09:17→21:00)
[2018-04-25] MEDS: PANTOPRAZOLE SOD 40 MG DELAYED RELEASE TAB PO SCH ×2 (09:17→23:03)
[2018-04-25] MEDS: FUROSEMIDE 80 MG TAB PO SCH (09:17)
[2018-04-25] MEDS: FERROUS SULFATE 325 MG (65 MG ELEMENTAL IRON) TAB PO SCH ×2 (09:17→21:00)
[2018-04-25] MEDS: CARVEDILOL 6.25 MG TAB PO SCH ×2 (09:18→23:03)
[2018-04-25] MEDS: predniSONE 10 MG TAB PO SCH ×2 (09:18→23:02)
[2018-04-25] MEDS: NIFEdipine 30 MG SUSTAINED RELEASE TAB PO SCH ×2 (09:18→23:03)
[2018-04-25] MEDS: BUDESONIDE-FORMOTEROL 160/4.5 MCG INHALER INH SCH ×2 (09:19→21:00)
--- NOTE | 2018-04-25 10:30 | HHI.PR ---
Subjective Remarks Patient again says she is feeling well. Denies any chest pain shortness of breath. Denies nausea vomiting. Objective Vital Signs Date Time Temp Pulse Resp B/P (MAP) Pulse Ox O2 Delivery O2 Flow Rate FiO2 04/25/18 09:18 97 04/25/18 08:02 97.9 67 17 166/73 (104) 97 04/25/18 04:34 98.0 65 14 178/77 (110) 95 04/25/18 04:08 79 04/25/18 00:17 69 04/24/18 22:02 98.4 86 16 164/74 (104) 96 04/24/18 20:31 96 Nasal Cannula 3.00 04/24/18 20:14 83 04/24/18 19:45 Nasal Cannula 2.00 04/24/18 18:00 Nasal Cannula 2.00 04/24/18 17:24 94 Nasal Cannula 2.00 04/24/18 16:00 79 04/24/18 16:00 97.6 77 18 149/67 (94) 96 04/24/18 12:00 97.7 62 18 152/70 (97) 95 04/24/18 12:00 Nasal Cannula 2.00 04/24/18 12:00 78 I/O 04/24/18 04/24/18 04/24/18 04/25/18 04/25/18 04/25/18 07:00 15:00 23:00 07:00 15:00 23:00 Intake Total 360 ml 480 ml 2 ml Balance 360 ml 480 ml 2 ml Intake Oral 360 ml 480 ml IV Total 2 ml # Voids 1 2 # Bowel Movements 0 Result Diagram: 04/25/18 0620 04/25/18 0620 Objective Remarks GENERAL: She is sitting up in bed. Appears comfortable. Alert and oriented 3. No change on exam. SKIN: Warm and dry. HEAD: Normocephalic. EYES: No scleral icterus. No injection or drainage. NECK: Supple, trachea midline. No JVD. CARDIOVASCULAR: Regular rate and rhythm without murmurs, gallops, or rubs. RESPIRATORY: Distant breath sounds secondary to body habitus. Sounds to be faint crackles in bases. No accessory muscle use. GASTROINTESTINAL: Abdomen soft, non-tender, nondistended. MUSCULOSKELETAL: No cyanosis. Still with +2 edema as yesterday. No broken skin. Patient does have right lower extremity chronic healing ulcer as before. Appears scabbed over without any surrounding erythema or drainage. Patient also with right posterior heel stage I venous stasis ulcer. No broken skin. No change. BACK: Nontender without obvious deformity. No CVA tenderness. A/P Assessment and Plan //COPD: Chronic Respiratory Failure w/ Acute Exacerbation,- patient 02 dependent //Hypoxemic respiratory failure - change to po Prednisone 20 mgpo bid today 04/20- continye taper -cotninue , Symbicort, DuoNeb, Mucinex. Pt home Nebulizer broken will need replacement on return home. = Shortness of breath improving. Continue diuresis, treatment for COPD. - NC 2 LNC- patient on chronic 02 //Left eye visual deficit. 2 day history without any pain. She says this appears to be improving somewhat. = CT head negative for acute process. Ophthalmology consult appreciated = Patient will need follow-up with ophthalmology as outpatient for laser ablation. //Anemia. 7.7. Likely secondary to anemia of chronic kidney disease. Consult nephrology as patient may require erythropoietin.transfuse as needed for Hgb <7 or if hemodynamically unstable. = hg continues stable at 10.6 // CHF: Acute on Chronic. Diastolic. Echo 01/03/18 w/ EF 55-60%, CXR w/ interstitial edema, h/o pleural effusion LLL w/ continued effusion, small to moderate right effusion, s/p Lasix in ER, Hypertension - elevated readings on diuresis Lasix 80 mg IV q 8 , monitor I/O. = cont fluid restriction. Strict intake and output. Continue to monitor - should improve when HD initiated - increase hydralazine to 100 mg tid, - continue coreg/CCB. Nitrates - increase doses = Improved on dialysis. //Chronic kidney disease - Nephrology ff . ON IV Lasix q 8 + Metolazone. decrease lasix to 80 mg bid // Hyperkalemia: Resolved patient was on Effiant and permcath can't be done = Effiant held today 04/21 = Dialysis as per nephrology. Appreciate assistance. // DM: Sliding scale w/ Accu-Cheks, - high readings on steroids resume home Levemir. - Increaase dose 8 units bid = sliding scale. = 5/27. Glucose variable but acceptable. Patient compliant with regimen. //Persistent Nausea and vomiting- ? uremic symptoms- but patient already getting HD abdominal exam- benign - get GI consult today for evaluation ?EGD -start PPI = Pangastritis on biopsy. Appreciate GI assistance. Biopsies pending. Continue PPI. // DVT Prophylaxis: SCD/Teds Discharge Planning Pending improvement. now on NC. may need SNF/rehab on discharge. = Will need follow-up with ophthalmology for laser ablation =case management following. Appreciate assistance. = Will need clearance by nephrology. Patient will likely need dialysis as outpatient. = GI biopsies pending but will not delay discharge. Timi Koehler MD April 25, 2018 10:30
--- NOTE | 2018-04-25 12:39 | HHI.NPPN ---
Subjective History of Present Illness This is a 67-year-old female known to me from before with a past medical history of ischemic heart disease, congestive heart failure with diastolic dysfunction, chronic obstructive pulmonary disease, recurrent pleural effusion, diabetes mellitus, chronic kidney disease,with advanced stage IV renal disease, who came to the hospital with a complaint of shortness of breath.Nephrology was called to see the patient because of her high BUN and creatinine. The patient has a known history of chronic kidney disease. She has been following with me and was admitted last month and at that time, her creatinine was as high as 3.0 and she was started on dialysis mainly for the fluid removal and now she came with a creatinine of 2.8. She was discharged with the serum creatinine of 2.8 to 2.9. She was taking her diuretics and according to her, she was watching her fluid and not drinking more than 40 ounces a day. Gradually, she saw her breathing has been getting worse and she has a cough with whitish sputum. She denies any chest pain. No palpitation. Additional Remarks Patient is alert, breathing is much better, not in distress. Review of Systems General Constitutional: Fatigue Respiratory Lungs: SOB Respiratory Remarks improved Cardiovascular Cardiac: Edema, KAMARA Gastrointestinal GI Remarks Denies abdominal pain Objective Data Data Vital Signs Date Time Temp Pulse Resp B/P (MAP) Pulse Ox O2 Delivery O2 Flow Rate FiO2 04/25/18 12:02 98.1 65 17 149/65 (93) 95 04/25/18 09:18 97 04/25/18 08:02 97.9 67 17 166/73 (104) 97 04/25/18 08:00 66 04/25/18 08:00 96 Nasal Cannula 2.00 50 04/25/18 04:34 98.0 65 14 178/77 (110) 95 04/25/18 04:08 79 04/25/18 00:17 69 04/24/18 22:02 98.4 86 16 164/74 (104) 96 04/24/18 20:31 96 Nasal Cannula 3.00 04/24/18 20:14 83 04/24/18 19:45 Nasal Cannula 2.00 04/24/18 18:00 Nasal Cannula 2.00 04/24/18 17:24 94 Nasal Cannula 2.00 04/24/18 16:00 79 04/24/18 16:00 97.6 77 18 149/67 (94) 96 -: 04/25/18 0620 04/25/18 0620 Tubes & Lines: Vas-Cath, Lim Tubes & Lines Comment Right IJ Physical Exam General Appearance: No Acute Distress, Comfortable Pulmonary Resp Exam: Breath Sounds Equal, No Distress, Decreased Bases Cardiology CV Exam: Regular Gastrointestinal/Abdomen GI Exam: Non-Tender, Bowel Sounds Present Genitourinary Exam: Flank Non-Tender Integumentary Skin Exam: Clear, Warm Extremeties Extremities Exam: Moderate Edema, Pitting Edema, Dependent Edema Neurologic Neuro Exam: Alert, Awake, Oriented Psychiatric Psych Exam: Appropriate Responses Assessment/Plan Discussed Condition With: Patient Assessment Summary: Fluid/Volume Overload Problem List: (1) Chronic kidney disease (CKD) stage G4/A1, severely decreased glomerular filtration rate (GFR) between 15-29 mL/min/1.73 square meter and albuminuria creatinine ratio less than 30 mg/g ICD Codes: N18.4 - Chronic kidney disease, stage 4 (severe) Plan: Patient has chronic kidney disease stage IV with a GFR of 16 to 17 which has now progressed to end stage renal disease. Plan Lasix decreased to 80 mg daily. Metolazone discontinued Will discontinue indwelling Lim catheter Avoid fluid administration Avoid nephrotoxins Vas cath placement in right IJ, Effient is on hold. Plan for permacath in left IJ when able. Hemodialysis started on 04/21 Will need AVF access when stable. Case management consulted to facilitate setting up outpatient dialysis. Also to get PermCath , possibly in AM. HD in AM, will consult Vascular tomorrow for AVF. (2) Diastolic CHF, acute ICD Codes: I50.31 - Acute diastolic (congestive) heart failure Plan: continue lasix (3) Hypertension ICD Codes: I10 - Essential (primary) hypertension Plan: Blood pressure elevated Procardia XL increased (4) Nausea & vomiting ICD Codes: R11.2 - Nausea with vomiting, unspecified Plan: GI consulted Flavio Toro MD April 25, 2018 12:39
--- NOTE | 2018-04-25 13:45 | HHI.GIFU ---
Subjective Remarks Pt in bed Eating hamburger and fries Denies nausea, vomiting, abdominal pain (+) BM Objective Vitals I&O Vital Signs Date Time Temp Pulse Resp B/P (MAP) Pulse Ox O2 Delivery O2 Flow Rate FiO2 04/25/18 12:02 98.1 65 17 149/65 (93) 95 04/25/18 09:18 97 04/25/18 08:02 97.9 67 17 166/73 (104) 97 04/25/18 08:00 66 04/25/18 08:00 96 Nasal Cannula 2.00 50 04/25/18 04:34 98.0 65 14 178/77 (110) 95 04/25/18 04:08 79 04/25/18 00:17 69 04/24/18 22:02 98.4 86 16 164/74 (104) 96 04/24/18 20:31 96 Nasal Cannula 3.00 04/24/18 20:14 83 04/24/18 19:45 Nasal Cannula 2.00 04/24/18 18:00 Nasal Cannula 2.00 04/24/18 17:24 94 Nasal Cannula 2.00 04/24/18 16:00 79 04/24/18 16:00 97.6 77 18 149/67 (94) 96 I/O 04/24/18 04/24/18 04/24/18 04/25/18 04/25/18 04/25/18 07:00 15:00 23:00 07:00 15:00 23:00 Intake Total 360 ml 480 ml 2 ml Balance 360 ml 480 ml 2 ml Intake Oral 360 ml 480 ml IV Total 2 ml # Voids 1 2 # Bowel Movements 0 Laboratory Laboratory Tests Test 04/25/18 06:20 White Blood Count 11.3 Red Blood Count 3.46 Hemoglobin 10.6 Hematocrit 32.1 Mean Corpuscular Volume 92.9 Mean Corpuscular Hemoglobin 30.6 Mean Corpuscular Hemoglobin Concent 32.9 Red Cell Distribution Width 17.4 Platelet Count 219 Mean Platelet Volume 8.0 Neutrophils (%) (Auto) 90.9 Lymphocytes (%) (Auto) 3.8 Monocytes (%) (Auto) 4.9 Eosinophils (%) (Auto) 0.2 Basophils (%) (Auto) 0.2 Neutrophils # (Auto) 10.3 Lymphocytes # (Auto) 0.4 Monocytes # (Auto) 0.6 Eosinophils # (Auto) 0.0 Basophils # (Auto) 0.0 CBC Comment DIFF FINAL Differential Comment Blood Urea Nitrogen 69 Creatinine 2.66 Random Glucose 268 Calcium Level 8.5 Sodium Level 138 Potassium Level 3.4 Chloride Level 99 Carbon Dioxide Level 26.5 Anion Gap 13 Estimat Glomerular Filtration Rate 18 Imaging Last Impressions Catheter Placement X-Ray 04/21/18 0000 Signed Impressions: CONCLUSION: 1. Uncomplicated line placement as above. Head CT 04/10/18 0000 Signed Impressions: Service Date/Time: Tuesday, April 10, 2018 18:05 - CONCLUSION: No acute intracranial disease. Je Fletcher MD Chest X-Ray 04/09/18 1731 Signed Impressions: Service Date/Time: Monday, April 09, 2018 17:45 - CONCLUSION: 1. Increased interstitial markings bilaterally suggesting pulmonary edema. 2. There is continued consolidation left lower lung suggestive of infiltrate and effusion. 3. There is a small to moderate right-sided effusion David Lezama MD Physical Exam HEENT: Normocephalic; atraumatic CHEST: Even/unlabored CARDIAC: RRR ABDOMEN: Soft, nondistended, nontender; bowel sounds active EXTREMITIES: No clubbing, cyanosis, or edema. 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 Assessment and Plan Assessment: (1) GERD (gastroesophageal reflux disease) ICD Codes: K21.9 - Gastro-esophageal reflux disease without esophagitis Status: Chronic (2) Gastritis ICD Codes: K29.70 - Gastritis, unspecified, without bleeding Status: Acute (3) Anemia, iron deficiency ICD Codes: D50.9 - Iron deficiency anemia, unspecified Status: Chronic (4) Nausea & vomiting ICD Codes: R11.2 - Nausea with vomiting, unspecified Status: Resolved (5) Diabetes mellitus ICD Codes: E11.9 - Type 2 diabetes mellitus without complications Status: Chronic Plan Assessment: - Persistent nausea and vomiting EGD (04/22/18) --> Pangastritis, biopsy pending Previous office records reviewed: Capsule endoscopy February 2016 --> Mild gastritis EGD February 2016 --> Gastritis in the antrum. Duodenal AVM S/P cautery, hiatal hernia. Pathology revealed gastritis and esophagitis. Colonoscopy February 2016 --> Sessile polyp in the ascending colon. Diminutive polyp in the sigmoid colon, semisolid stool. Internal hemorrhoids. Pathology- (ascending colon) abundant mucus, no viable tissue for evaluation (descending colon) without significant histopathologic abnormality - Anemia- normocytic- likely multifactorial- previous anemia work up as above. - CKD on HD (04/25) Pt tolerating diet, denies any GI symptoms at this time. Plan AURA EGD biopsy pending Protonix Reglan PRN GI will sign off, please reconsult as needed Have pt follow up with GI after DC Pt has been seen and examined by myself and Dr. Hilton and this note is written on his behalf Jessica Quintana April 25, 2018 13:45
[2018-04-25] MEDS: GENTAMICIN SULFATE 20 MG/2 ML VIAL OTHER PRN (18:10)
[2018-04-25] MEDS: HEPARIN SODIUM - IV 10,000 UNITS/10 ML VIAL PRN (18:10)
[2018-04-25] MEDS: EPOETIN ALFA 10,000 UNITS/ML VIAL IV PUSH PRN (18:10)
--- NOTE | 2018-04-25 18:21 | HHI.PR ---
Subjective Remarks 67 YOWF with COPD,Hypoxia,CHF,CKD Feels much better no CP Weaned to NC Breathing better Looks comfortable. Had HD Objective Vital Signs Vital Signs Date Time Temp Pulse Resp B/P (MAP) Pulse Ox O2 Delivery O2 Flow Rate FiO2 04/25/18 16:02 98.4 69 17 133/62 (85) 95 04/25/18 12:02 98.1 65 17 149/65 (93) 95 04/25/18 09:18 97 04/25/18 08:02 97.9 67 17 166/73 (104) 97 04/25/18 08:00 66 04/25/18 08:00 96 Nasal Cannula 2.00 50 04/25/18 04:34 98.0 65 14 178/77 (110) 95 04/25/18 04:08 79 04/25/18 00:17 69 04/24/18 22:02 98.4 86 16 164/74 (104) 96 04/24/18 20:31 96 Nasal Cannula 3.00 04/24/18 20:14 83 04/24/18 19:45 Nasal Cannula 2.00 I/O 04/24/18 04/24/18 04/24/18 04/25/18 04/25/18 04/25/18 07:00 15:00 23:00 07:00 15:00 23:00 Intake Total 360 ml 480 ml 2 ml Balance 360 ml 480 ml 2 ml Intake Oral 360 ml 480 ml IV Total 2 ml # Voids 1 2 # Bowel Movements 0 Result Diagram: 04/25/1820 04/25/18619 Objective Remarks GENERAL: MBMNWF, mild sob SKIN: Warm and dry. HEAD: Normocephalic. EYES: No scleral icterus. No injection or drainage. NECK: Supple, trachea midline. No JVD or lymphadenopathy. CARDIOVASCULAR: Regular rate and rhythm without murmurs, gallops, or rubs. RESPIRATORY: Breath sounds equal bilaterally. No accessory muscle use. GASTROINTESTINAL: Abdomen soft, non-tender, nondistended. MUSCULOSKELETAL: No cyanosis, ++ edema. BACK: Nontender without obvious deformity. No CVA tenderness. A/P Assessment and Plan IMPRESSION: 1. Respiratory insufficiency. 2. Congestive heart failure. 3. Pleural effusion. 4. Worsening renal functions. 5. Coronary artery disease status post stent placement. PLAN: Supplement 02 with NC Diurease . Aerosol nebs q 2 hrs prn Cont Abx Monitor pl eff Pred 10 mg bid Aaron Blankenship MD April 25, 2018 18:21
[2018-04-25] MEDS: ATORVASTATIN 40 MG TAB PO SCH (23:02)
[2018-04-25] MEDS: SODIUM CHLORIDE 0.9% FLUSH 10 ML FLUSH IV FLUSH SCH (23:06)
[2018-04-26] VITALS (11 sets, daily range): BP systolic 113–173; BP diastolic 60–75; PULSE 58–78; RESP 16–20; TEMP 97–98.5; O2SAT 93–98
[2018-04-26] MEDS: SODIUM CHLORIDE 0.65% NASAL DRP/SPRY 30 ML BTL EACH NARE SCH ×7 (04:16→23:47)
[2018-04-26] MEDS: ACETAMINOPHEN/HYDROcodone 325 MG/5 MG TAB PO PRN ×3 (05:15→21:02)
[2018-04-26] MEDS: hydrALAZINE HCL 50 MG TAB PO SCH ×3 (05:15→20:54)
[2018-04-26] MEDS: INSULIN ASPART SUPPLEMENTAL SCALE SQ SCH ×4 (08:00→20:57)
[2018-04-26] MEDS: DOCUSATE SODIUM 50 MG/SENNA 8.6 MG TAB PO SCH ×2 (09:00→20:57)
[2018-04-26] MEDS: guaiFENesin E.R. 600 MG TAB PO SCH ×2 (09:00→20:57)
[2018-04-26] MEDS: BUDESONIDE-FORMOTEROL 160/4.5 MCG INHALER INH SCH ×2 (09:00→20:56)
[2018-04-26] MEDS: PANTOPRAZOLE SOD 40 MG DELAYED RELEASE TAB PO SCH ×2 (09:03→20:54)
[2018-04-26] MEDS: NIFEdipine 30 MG SUSTAINED RELEASE TAB PO SCH ×2 (09:03→20:54)
[2018-04-26] MEDS: ISOSORBIDE MONONITRATE 60 MG CR TAB (IMDUR) PO SCH (09:03)
[2018-04-26] MEDS: INSULIN DETEMIR 100 UNITS/ML VIAL SQ SCH ×2 (09:03→20:53)
[2018-04-26] MEDS: CARVEDILOL 6.25 MG TAB PO SCH ×2 (09:03→20:54)
[2018-04-26] MEDS: FERROUS SULFATE 325 MG (65 MG ELEMENTAL IRON) TAB PO SCH ×2 (09:03→20:54)
[2018-04-26] MEDS: SODIUM CHLORIDE 0.9% FLUSH 10 ML FLUSH IV FLUSH SCH ×2 (09:04→20:56)
[2018-04-26] MEDS: NYSTATIN SUSP 500,000 U/5 ML CUP SWISH-SWAL SCH ×4 (09:04→21:00)
[2018-04-26] MEDS: ASPIRIN 81 MG CHEW TAB CHEW SCH (09:04)
[2018-04-26] MEDS: CALCIUM ACETATE 667 MG CAP PO SCH ×3 (09:04→17:18)
[2018-04-26] MEDS: predniSONE 10 MG TAB PO SCH ×2 (09:04→20:54)
[2018-04-26] MEDS: FUROSEMIDE 80 MG TAB PO SCH (09:04)
--- NOTE | 2018-04-26 10:03 | HHI.NPPN ---
Subjective History of Present Illness This is a 67-year-old female known to me from before with a past medical history of ischemic heart disease, congestive heart failure with diastolic dysfunction, chronic obstructive pulmonary disease, recurrent pleural effusion, diabetes mellitus, chronic kidney disease,with advanced stage IV renal disease, who came to the hospital with a complaint of shortness of breath.Nephrology was called to see the patient because of her high BUN and creatinine. The patient has a known history of chronic kidney disease. She has been following with me and was admitted last month and at that time, her creatinine was as high as 3.0 and she was started on dialysis mainly for the fluid removal and now she came with a creatinine of 2.8. She was discharged with the serum creatinine of 2.8 to 2.9. She was taking her diuretics and according to her, she was watching her fluid and not drinking more than 40 ounces a day. Gradually, she saw her breathing has been getting worse and she has a cough with whitish sputum. She denies any chest pain. No palpitation. Additional Remarks Patient is alert and eating breakfast. Denies any shortness of breath. Edema has significantly decreased. (Jessica Clemons) Review of Systems General Constitutional: Fatigue (Jessica Clemons) Respiratory Respiratory Remarks Denies shortness of breath (Jessica Clemons) Gastrointestinal GI Remarks Denies abdominal pain (Jessica Clemons) Objective Data Data Vital Signs Date Time Temp Pulse Resp B/P (MAP) Pulse Ox O2 Delivery O2 Flow Rate FiO2 04/26/18 08:00 98.3 70 18 113/72 (86) 97 04/26/18 04:00 98.5 73 20 148/60 (89) 96 Automatic Cuff 04/26/18 04:00 73 04/26/18 00:00 98.2 74 20 173/75 (107) 97 04/26/18 00:00 78 04/25/18 20:00 98.1 61 20 141/65 (90) 97 04/25/18 20:00 70 04/25/18 20:00 Nasal Cannula 2.00 04/25/18 16:02 98.4 69 17 133/62 (85) 95 04/25/18 12:02 98.1 65 17 149/65 (93) 95 (Jessica Clemons) -: 04/25/18 0620 04/25/18 0620 Imaging Last Impressions Catheter Placement X-Ray 04/21/18 0000 Signed Impressions: CONCLUSION: 1. Uncomplicated line placement as above. Head CT 04/10/18 0000 Signed Impressions: Service Date/Time: Tuesday, April 10, 2018 18:05 - CONCLUSION: No acute intracranial disease. Je Fletcher MD Chest X-Ray 04/09/18 1731 Signed Impressions: Service Date/Time: Monday, April 09, 2018 17:45 - CONCLUSION: 1. Increased interstitial markings bilaterally suggesting pulmonary edema. 2. There is continued consolidation left lower lung suggestive of infiltrate and effusion. 3. There is a small to moderate right-sided effusion David Lezama MD Tubes & Lines: Vas-Cath Tubes & Lines Comment Right IJ (Jessica Clemons) Physical Exam General Appearance: No Acute Distress, Comfortable (Jessica Clemons) Pulmonary Resp Exam: Breath Sounds Equal, No Distress, Decreased Bases (Jessica Clemons) Cardiology CV Exam: Regular (Jessica Clemons) Gastrointestinal/Abdomen GI Exam: Non-Tender, Bowel Sounds Present (Jessica Clemons) Genitourinary Exam: Flank Non-Tender (Jessica Clemons) Integumentary Skin Exam: Clear, Warm (Jessica Clemons) Extremeties Extremities Exam: Moderate Edema, Pitting Edema, Dependent Edema Extremeties Remarks Edema improving (Jessica Clemons) Neurologic Neuro Exam: Alert, Awake, Oriented (Jessica Clemons) Psychiatric Psych Exam: Appropriate Responses (Jessica Clemons) Assessment/Plan Discussed Condition With: Patient Assessment Summary: Fluid/Volume Overload Problem List: (1) Chronic kidney disease (CKD) stage G4/A1, severely decreased glomerular filtration rate (GFR) between 15-29 mL/min/1.73 square meter and albuminuria creatinine ratio less than 30 mg/g ICD Codes: N18.4 - Chronic kidney disease, stage 4 (severe) Plan: Patient has chronic kidney disease stage IV with a GFR of 16 to 17 which has now progressed to end stage renal disease. Plan Continue Lasix 80 mg daily. Avoid fluid administration Avoid nephrotoxins Vas cath placement in right IJ, Effient is on hold. Plan for permacath placement tomorrow in left IJ Hemodialysis started on 04/21 Hemodialysis yesterday for UF of 3 liters. Will continue with Wednesday, Wednesday, and Wednesday Case management consulted to facilitate setting up outpatient dialysis. Orders for perma cath placement placed Vascular consulted for AVF. (2) Diastolic CHF, acute ICD Codes: I50.31 - Acute diastolic (congestive) heart failure Plan: continue lasix (3) Hypertension ICD Codes: I10 - Essential (primary) hypertension Plan: Blood pressure elevated Procardia XL increased (4) Nausea & vomiting ICD Codes: R11.2 - Nausea with vomiting, unspecified Plan: GI consulted (Jessica Clemons) Problem List: (1) Chronic kidney disease (CKD) stage G4/A1, severely decreased glomerular filtration rate (GFR) between 15-29 mL/min/1.73 square meter and albuminuria creatinine ratio less than 30 mg/g ICD Codes: N18.4 - Chronic kidney disease, stage 4 (severe) Plan: Patient has chronic kidney disease stage IV with a GFR of 16 to 17 which has now progressed to end stage renal disease. Plan Continue Lasix 80 mg daily. Avoid fluid administration Avoid nephrotoxins Vas cath placement in right IJ, Effient is on hold. Plan for permacath placement tomorrow in left IJ Hemodialysis started on 04/21 Hemodialysis yesterday for UF of 3 liters. Will continue with Wednesday, Wednesday, and Wednesday Case management consulted to facilitate setting up outpatient dialysis. Orders for perma cath placement placed Vascular consulted for AVF. Patient seen and examined, agree with above. PermCath placed, for out patient HD arrangement. (2) Diastolic CHF, acute ICD Codes: I50.31 - Acute diastolic (congestive) heart failure Plan: continue lasix (3) Hypertension ICD Codes: I10 - Essential (primary) hypertension Plan: Blood pressure elevated Procardia XL increased (4) Nausea & vomiting ICD Codes: R11.2 - Nausea with vomiting, unspecified Plan: GI consulted (Flavio Toro MD) Jessica Clemons April 26, 2018 10:03 Flavio Toro MD April 27, 2018 21:13
[2018-04-26] MEDS ORDERED: VANCOMYCIN INJ 1,000 MG in SODIUM CHLOR 0.9% 250 ML INJ 250 ML IV SCH (10:15)
[2018-04-26] MEDS ORDERED: ceFAZolin 2 GM PREMIX 50 ML IV SCH (10:15)
--- NOTE | 2018-04-26 10:59 | RADRPT ---
EXAM DATE: 04/26/2018 10:55 AM EDT AGE/SEX: 67 years / Female INDICATIONS: Mapping for AVF. CLINICAL DATA: This is the patient's subsequent encounter. Patient reports that signs and symptoms h ave been present for 1 day and indicates a pain score of 0/10. MEDICAL/SURGICAL HISTORY: . CHF. COPD. Cardiac disorders. PA. CAD. Afib. Hypertension. D iabetic. . sTENT PLACEMENT. angioplasty. appendectomy. hysterectomy. Back surgery. COMPARISON: No prior [place] exams available for comparison. FINDINGS: There is spontaneous flow documented in the brachial, basilic, cephalic, axillary, and subclavian vei ns. The vessels are compressible and augmentation response is documented. No filling defects are se en. The flow is phasic with respiration. Direction of flow in the jugular vein is caudal. CONCLUSION: 1. The study is negative for upper extremity deep venous thrombosis. Electronically signed by: Je Fletcher MD 04/26/2018 10:58 AM EDT
--- NOTE | 2018-04-26 11:17 | RADRPT ---
EXAM DATE: 04/26/2018 11:07 AM EDT AGE/SEX: 67 years / Female INDICATIONS: Arterio venous shunt. CLINICAL DATA: This is the patient's initial encounter. Patient reports that signs and symptoms have been present for 1 day and indicates a pain score of 0/10. MEDICAL/SURGICAL HISTORY: . CHF. COPD. Cardiac disorders. [place]. CAD. Afib. Diabetic. . Pancho nt placement. Angioplasty. Appendectomy. Hysterectomy. Back surgery. COMPARISON: No prior [place] exams available for comparison. MEASUREMENTS: CEPHALIC: Origin:__5 mm Mid-Arm:__2 mm Elbow:__2 mm Forearm:__2 mm Wrist:__1 mm BASILIC: Origin:__ Mid-Arm:__3 mm Elbow:__3 mm Forearm:__Non-visualized Wrist:__Non-visualized ARTERIES: Brachial:__4 mm Ulnar:__2 mm Radial:__1 mm VEINS: Radial:__1 mm Ulnar:__2 mm FINDINGS: The venous system of the upper extremity is patent by color Doppler imaging. Measurements of the arm veins (in mm) are listed above. CONCLUSION: 1. Ultrasound vascular mapping of the right upper extremity, as above. Electronically signed by: Eric Pham MD 04/26/2018 11:15 AM EDT
--- NOTE | 2018-04-26 12:05 | HHI.PR ---
Subjective Remarks Patient seen today around 11 AM. Says she is feeling all right. Denies any chest pain shortness of breath. Denies nausea or vomiting. Feels like going home. Objective Vital Signs Date Time Temp Pulse Resp B/P (MAP) Pulse Ox O2 Delivery O2 Flow Rate FiO2 04/26/18 10:14 98 Nasal Cannula 4.00 04/26/18 08:00 98.3 70 18 113/72 (86) 97 04/26/18 04:00 98.5 73 20 148/60 (89) 96 Automatic Cuff 04/26/18 04:00 73 04/26/18 00:00 98.2 74 20 173/75 (107) 97 04/26/18 00:00 78 04/25/18 20:00 98.1 61 20 141/65 (90) 97 04/25/18 20:00 70 04/25/18 20:00 Nasal Cannula 2.00 04/25/18 16:02 98.4 69 17 133/62 (85) 95 I/O 04/25/18 04/25/18 04/25/18 04/26/18 04/26/18 04/26/18 07:00 15:00 23:00 07:00 15:00 23:00 Intake Total 480 ml 60 ml Output Total 3400 ml 0 ml Balance -2920 ml 60 ml Intake Oral 480 ml 60 ml Output Urine Total 400 ml 0 ml Hemodialysis 3000 ml # Voids 0 # Bowel Movements 0 0 Result Diagram: 04/25/18 0620 04/25/18 0620 Objective Remarks GENERAL: She is sitting up in bed. Appears comfortable. Alert and oriented 3. No change on exam. SKIN: Warm and dry. HEAD: Normocephalic. EYES: No scleral icterus. No injection or drainage. NECK: Supple, trachea midline. No JVD. CARDIOVASCULAR: Regular rate and rhythm without murmurs, gallops, or rubs. RESPIRATORY: Distant breath sounds secondary to body habitus. Sounds to be faint crackles in bases. No accessory muscle use. GASTROINTESTINAL: Abdomen soft, non-tender, nondistended. MUSCULOSKELETAL: No cyanosis. +1 peripheral edema bilateral lower extremities no broken skin. BACK: Nontender without obvious deformity. No CVA tenderness. A/P Assessment and Plan //COPD: Chronic Respiratory Failure w/ Acute Exacerbation,- patient 02 dependent //Hypoxemic respiratory failure - change to po Prednisone 20 mgpo bid today 04/20- continye taper -cotninue , Symbicort, DuoNeb, Mucinex. Pt home Nebulizer broken will need replacement on return home. = Shortness of breath improving. Continue diuresis, treatment for COPD. - NC 2 LNC- patient on chronic 02 //Left eye visual deficit. 2 day history without any pain. She says this appears to be improving somewhat. = CT head negative for acute process. Ophthalmology consult appreciated = Patient will need follow-up with ophthalmology as outpatient for laser ablation. //Anemia. 7.7. Likely secondary to anemia of chronic kidney disease. Consult nephrology as patient may require erythropoietin.transfuse as needed for Hgb <7 or if hemodynamically unstable. = hg continues stable // CHF: Acute on Chronic. Diastolic. Echo 01/03/18 w/ EF 55-60%, CXR w/ interstitial edema, h/o pleural effusion LLL w/ continued effusion, small to moderate right effusion, s/p Lasix in ER, Hypertension - elevated readings on diuresis Lasix 80 mg IV q 8 , monitor I/O. = cont fluid restriction. Strict intake and output. Continue to monitor - should improve when HD initiated - increase hydralazine to 100 mg tid, - continue coreg/CCB. Nitrates - increase doses = Improved on dialysis. //Chronic kidney disease - Nephrology ff . ON IV Lasix q 8 + Metolazone. decrease lasix to 80 mg bid // Hyperkalemia: Resolved patient was on Effiant and permcath can't be done = Effiant held today 04/21 = Dialysis as per nephrology. Appreciate assistance. = 04/26 awaiting eval for AV fistula, Vas-Cath. // DM: Sliding scale w/ Accu-Cheks, - high readings on steroids resume home Levemir. - Increaase dose 8 units bid = sliding scale. = 04/26. Glucose acceptable. Patient compliant with regimen. //Persistent Nausea and vomiting- ? uremic symptoms- but patient already getting HD abdominal exam- benign - get GI consult today for evaluation ?EGD -start PPI = Pangastritis on biopsy. Appreciate GI assistance. Biopsies pending. Continue PPI. = EGD biopsies pending. Continue PPI // DVT Prophylaxis: SCD/Teds Discharge Planning Pending improvement. now on NC. may need SNF/rehab on discharge. = Will need follow-up with ophthalmology for laser ablation =case management following. Appreciate assistance. = Will need clearance by nephrology. Patient will likely need dialysis as outpatient. = Awaiting eval for AV fistula/Vas-Cath. = GI biopsies pending but will not delay discharge. Timi Koehler MD April 26, 2018 12:05
--- NOTE | 2018-04-26 14:15 | PD.VS.CON ---
History of Present Illness Chief Complaint: AVF Eval Consult Requested by: History of Present Illness 67/F with a PMH of [place], CAD, HTN, chronic kidney disease (advanced stage IV recently started HD), DM, COPD and Hyperlipidemia Pt c/o weakness with SOB several weeks ago and was admitted Pt recently started HD (M,W,F) Pt is LEFT handed No hx of prior access attempts (Erica Mg) Past/Family/Social History Past Medical History NV CAD HTN Chronic kidney disease (stage IV, advanced) on HD DM Hyperlipidemia COPD Past Surgical History Appendectomy Cardiac Stent Tonsillectomy Left Ganglion Cyst Social History Smoking hx- Quit 16 years ago Denied ETOH Denied Illicit drug usage Retired- [employer] (Erica Mg) Home Medications Active Scripts Vancomycin Inj (Vancomycin Inj) 500 Mg Inj, 125 MG PO QID for c diff for 12 Days, INJECTION use injectable form of vanco by mouth Prov:Lay Camacho MD 03/11/18 [Budeson-Formot 160-4.5 Mcg Inh] 60 PUFF AERO No Conflict Check, 2 PUFF INH Q12HR for Shortness of Breath for 30 Days, INHALER Prov:Lay Camacho MD 03/11/18 Hydrocodone-Acetaminophen (Hydrocodone-Acetaminophen) 5-325 mg Tab, 1 TAB PO Q6H Y for PAIN, #10 TAB 0 Refills Prov:Lay Camacho MD 03/11/18 Albuterol 18 GM Inh (Ventolin Hfa 18 GM Inh) 90 Mcg/Act Aer, 2 PUFF INH Q4-6H Y for SHORTNESS OF BREATH, #1 INHALER 3 Refills Prov:Je Morales MD 01/20/18 Ipratropium HFA 12.9 GM Inh (Atrovent HFA 12.9 GM Inh) 17 Mcg/Actuation Aer, 2 PUFF INH Q6HR Y for SHORTNESS OF BREATH, #1 INHALER 3 Refills Prov:Je Morales MD 01/20/18 Insulin Detemir Inj (Levemir Inj) 1,000 unit/ 10 ML Vial, 5 UNITS SQ Q12HR for Blood Sugar Management, #100 INJECTION 3 Refills Do not mix with any other Insulin. Prov:Je Morales MD 01/20/18 Nifedipine ER 24 HR (Nifedipine ER 24 HR) 30 Mg Tab, 30 MG PO Q12HR for Blood Pressure Management, #60 TAB 3 Refills Prov:Je Morales MD 01/20/18 Spironolactone (Aldactone) 25 Mg Tab, 12.5 MG PO DAILY for Prevent Heart Failure , #30 TAB 3 Refills Prov:Je Morales MD 01/20/18 Carvedilol (Coreg) 6.25 Mg Tab, 6.25 MG PO Q12HR for Blood Pressure Management, #60 TAB 3 Refills Prov:Je Morales MD 01/20/18 Doxazosin (Cardura) 2 Mg Tab, 2 MG PO DAILY for Blood Pressure Management, #30 TAB 3 Refills Prov:Je Morales MD 01/20/18 Doxazosin (Cardura) 2 Mg Tab, 2 MG PO DAILY for Blood Pressure Management, #30 TAB 3 Refills Prov:Je Morales MD 01/20/18 Hydralazine HCl (Hydralazine HCl) 50 Mg Tablet, 75 MG PO Q8HR for Blood Pressure Management, #90 MG 3 Refills Prov:Je Morales MD 01/20/18 Ferrous Sulfate (Ferosul) 325 Mg (65 Mg Iron) Tablet, 325 MG PO BID for Immunosuppression, #60 MG 3 Refills Prov:Je Morales MD 01/20/18 Clonidine (Catapres) 0.1 Mg Tab, 0.1 MG PO Q6H Y for Uncontrolled Blood Pressure , #30 TAB Prov:Wally Gill MD 11/28/17 Atorvastatin (Atorvastatin) 40 Mg Tab, 40 MG PO HS for Cholesterol Management, # 30 TAB 2 Refills Prov:Ilsa Treviño 11/08/17 Ipratropium-Albuterol Neb (Duoneb) 0.5-2.5 Mg/3 Ml Neb, 1 NEBULE INH Q4HR NEB for SHORTNESS OF BREATH, #120 NEBULE 1 Refill Prov:Ilsa Treviño 11/08/17 Isosorbide Mononitrate ER (Isosorbide Mononitrate ER) 60 Mg Tab, 60 MG PO DAILY for Prevent Chest Pain, #30 TAB 0 Refills Prov:Uzma Prabhakar MD 11/04/17 Insulin Aspart Inj (Novolog Inj) 100 Unit/Ml Inj, 1 UNITS SQ ACHS SLIDING SCALE for Blood Sugar Management for 30 Days, INJECTION Sliding Scale As Directed.150-199 1 Unit; 200-249 3 units; 250-299 5 Units; 300-349 7 Units; Prov:Uzma Prabhakar MD 11/04/17 Reported Medications Acetaminophen (Tylenol) 325 Mg Tab, 325 MG PO Q4H Y for PAIN SCALE 1 TO 5, TAB 0 Refills 10/27/17 Prasugrel (Effient) 10 Mg Tab, 10 MG PO DAILY for Blood Clot Prevention, #30 TAB 0 Refills 09/27/16 Aspirin (Aspirin) 81 Mg Chew, 81 MG CHEW DAILY, TAB 0 Refills 09/27/16 Coded Allergies: propoxyphene (Verified Allergy, Mild, RASH, 03/03/18) Review of Systems Constitutional: DENIES: Fatigue, Fever, Chills Respiratory: DENIES: Cough, Shortness of breath Cardiovascular: DENIES: Chest pain (Erica Mg) Physical Exam Vitals/I&O Date Time Temp Pulse Resp B/P (MAP) Pulse Ox O2 Delivery O2 Flow Rate FiO2 04/26/18 12:00 98.4 64 18 138/62 (87) 98 04/26/18 10:14 98 Nasal Cannula 4.00 04/26/18 08:00 98.3 70 18 113/72 (86) 97 04/26/18 04:00 98.5 73 20 148/60 (89) 96 Automatic Cuff 04/26/18 04:00 73 04/26/18 00:00 98.2 74 20 173/75 (107) 97 04/26/18 00:00 78 04/25/18 20:00 98.1 61 20 141/65 (90) 97 04/25/18 20:00 70 04/25/18 20:00 Nasal Cannula 2.00 04/25/18 16:02 98.4 69 17 133/62 (85) 95 04/26/18 04/26/18 04/26/18 07:00 15:00 23:00 Intake Total 60 ml Output Total 0 ml Balance 60 ml Neuro: Speech clear GCS 15 A&OX3 HEENT: CHANCE Neck: NO JVD distention Heart: RRR Lungs: CTA Vascular: Palpable R/L radial pulses UE warm w/ motor intact Extremities: UE / (Erica Mg) Last 48 hours Impressions Upper Extremity Ultrasound 04/26/18 0000 Signed Impressions: CONCLUSION: 1. Ultrasound vascular mapping of the right upper extremity, as above. Upper Extremity Ultrasound 04/26/18 0000 Signed Impressions: CONCLUSION: 1. The study is negative for upper extremity deep venous thrombosis. (Erica Mg) Assessment and Plan Assessment: (1) Stage 4 chronic kidney disease Plan 67/F with Stage 4 Kidney disease recently started HD Needs HD access Pt left handed Plan Discussed and reviewed AVF creation w/ pt Questions answered Right arm precautions in prep for AVF creation- NO B/P readings or Lab draws Arranged out pt f/u in 2W Erica Mg BLOCK SETTER GYPSUM [facility] [phone] (Erica Mg) Plan Agree with above note; repeated hamlin portions of H&P Just started HD, no prior access attempts LEFT handed will arrange f/u in our clinic SAVE RIGHT ARM. Linwood Luna MD FACS RPVI computer numerical control programmer [facility] - Heart and Vascular Surgery at [facility] [phone] (Linwood Luna MD) Erica Mg April 26, 2018 14:15 Linwood Luna MD April 26, 2018 18:37
[2018-04-26] MEDS ORDERED: fentaNYL CITRATE 250 MCG/5 ML AMP ONE (14:43)
[2018-04-26] MEDS ORDERED: MIDAZOLAM HCL 5 MG/5 ML VIAL ONE (14:43)
[2018-04-26] MEDS ORDERED: LIDOCAINE 1%/EPINEPHrine 1:100,000 SOLN 20 ML VIAL ONE (15:07)
--- NOTE | 2018-04-26 16:26 | RADRPT ---
EXAM DATE: 04/26/2018 3:54 PM EDT AGE/SEX: 67 years / Female INDICATIONS: Patient presents with end stage renal disease in need of dialysis catheter. CLINICAL DATA: This is the patient's subsequent encounter. Patient reports that signs and symptoms h ave been present for 4 - 6 days and indicates a pain score of 0/10. MEDICAL/SURGICAL HISTORY: . Ischemic heart diseaseCHFCOPDDiabetesChronic kidney diseaseEnd stag e renal disease . Appendectomy, Cardiac Stent, , Tonsillectomy, Left Ganglion Cyst COMPARISON: No prior [place] exams available for comparison. FLUORO TIME (min): .18 IMAGE SERIES: SEDATION TIME (min): 30 MEDICATION(S): 1.5 mg midazolam (Versed) IV 75 mcg fentanyl (Sublimaze) IV DEVICE(S): Right 15Fx 19cm Mehta II dialysis catheter . . PROCEDURE: 1. Dialysis catheter placement. 2. Conscious sedation with continuous EKG and oximetry monitoring. The risks, benefits and alternatives to the procedure were explained and verbal and written consent w as obtained. The site was prepped in sterile fashion. Full sterile technique was used, including ca p, mask, sterile gloves and gown and a large sterile sheet. Hand hygiene and 2% chlorhexidine and/or betadine/alcohol prep was utilized per protocol for cutaneous antisepsis. The skin and subcutaneous tissues were infiltrated with local anesthetic solution. With fluoroscopic guidance a dermatotomy was created using the existing venous access. A subcutaneou s tunnel was created in a retrograde fashion the catheter was pulled through the tunnel. The cathete r was flushed and assembled and locked with heparin. The catheter was sutured in place. Conscious sedation was performed with the prescribed dosages and duration as above in the presence of an independent trained radiology nurse to assist in the monitoring of the patient. EKG and oximetry remained stable throughout the procedure. The patient tolerated the procedure well and there were n o complications. The patient was sent to post anesthesia recovery in stable condition. CONCLUSION: 1. Uncomplicated Dialysis catheter placement as above. Electronically signed by: Eric Pham MD 04/26/2018 4:25 PM EDT
--- NOTE | 2018-04-26 16:44 | PD.WCN.NOT ---
Wound Consult Description: Wound consult ordered by for wound management of right heel Communicated with: [facility] [address] [place] [address]. Recommendation: 1. Encourage patient to reposition in bed every 2 hours for offloading and comfort. 2. Perform shaving cream therapy to bilateral lower extremities x5 days (Shaving cream therapy, Apply thick layer of shaving cream to lower extremities/feet ,Wrap lower extremities in warm moist towel let sit for 10 min wipe shaving cream off apply lotion) 3. Apply heel protector boots while in bed or float heels on pillows to avoid contact with surface Additional Information: Patient was seen today on [address] [place] [address] by keno writer/runner for wound management of right heel.patient alert in bed with no current complaints of distress.Patient has bilateral lower extremities floating on pillow upon writers arrival.Riddler Operator was able to visualized right calcaneus patient has deflated bulla measuring 0.5cm x0.5cm with no drainage or open area noted.Patient has multiple areas of dry scaling skin to bilateral lower extremities.Patient would benefit from shaving cream therapy .Blue heel protector boots in patient room.[facility]zma HOUSE to place on patient after shaving cream therapy complete.Patient has no further questions or concerns at this time. Janine Romero [facility] April 26, 2018 16:44
--- NOTE | 2018-04-26 20:06 | HHI.PR ---
Subjective Remarks 67 YOWF with COPD,Hypoxia,CHF,CKD Feels much better no CP Weaned to NC Breathing better Looks comfortable. Anxious to go home. Objective Vital Signs Vital Signs Date Time Temp Pulse Resp B/P (MAP) Pulse Ox O2 Delivery O2 Flow Rate FiO2 04/26/18 18:23 Nasal Cannula 2.00 50 04/26/18 17:28 97.3 58 18 151/67 (95) 97 04/26/18 17:22 95 Nasal Cannula 2.00 04/26/18 16:35 58 16 158/70 (99) 95 04/26/18 16:05 60 18 148/66 (93) 95 04/26/18 15:50 97.6 61 16 153/64 (93) 93 04/26/18 12:00 98.4 64 18 138/62 (87) 98 04/26/18 10:14 98 Nasal Cannula 4.00 04/26/18 08:00 98.3 70 18 113/72 (86) 97 04/26/18 04:00 98.5 73 20 148/60 (89) 96 Automatic Cuff 04/26/18 04:00 73 04/26/18 00:00 98.2 74 20 173/75 (107) 97 04/26/18 00:00 78 I/O 04/25/18 04/25/18 04/25/18 04/26/18 04/26/18 04/26/18 07:00 15:00 23:00 07:00 15:00 23:00 Intake Total 480 ml 60 ml 840 ml Output Total 3400 ml 0 ml Balance -2920 ml 60 ml 840 ml Intake Oral 480 ml 60 ml 840 ml Output Urine Total 400 ml 0 ml Hemodialysis 3000 ml # Voids 0 0 # Bowel Movements 0 0 0 Result Diagram: 04/25/18 0620 04/25/18 0620 Objective Remarks GENERAL: MBMNWF, mild sob SKIN: Warm and dry. HEAD: Normocephalic. EYES: No scleral icterus. No injection or drainage. NECK: Supple, trachea midline. No JVD or lymphadenopathy. CARDIOVASCULAR: Regular rate and rhythm without murmurs, gallops, or rubs. RESPIRATORY: Breath sounds equal bilaterally. No accessory muscle use. GASTROINTESTINAL: Abdomen soft, non-tender, nondistended. MUSCULOSKELETAL: No cyanosis, ++ edema. BACK: Nontender without obvious deformity. No CVA tenderness. A/P Assessment and Plan IMPRESSION: 1. Respiratory insufficiency. 2. Congestive heart failure. 3. Pleural effusion. 4. Worsening renal functions. 5. Coronary artery disease status post stent placement. PLAN: Supplement 02 with NC Diurease . Aerosol nebs q 2 hrs prn Cont Abx Monitor pl eff Pred 10 mg bid DC plans underway. Aaron Blankenship MD April 26, 2018 20:06
[2018-04-26] MEDS: ATORVASTATIN 40 MG TAB PO SCH (20:54)
[2018-04-27] VITALS (9 sets, daily range): BP systolic 124–172; BP diastolic 60–74; PULSE 60–95; RESP 16–18; TEMP 97.6–98.6; O2SAT 93–98
[2018-04-27] MEDS: MORPHINE SULFATE 2 MG/ML SYRINGE IV PUSH PRN (00:33)
[2018-04-27] MEDS: SODIUM CHLORIDE 0.65% NASAL DRP/SPRY 30 ML BTL EACH NARE SCH ×5 (04:00→22:08)
[2018-04-27] MEDS: hydrALAZINE HCL 50 MG TAB PO SCH ×3 (05:36→22:06)
[2018-04-27] MEDS: ACETAMINOPHEN/HYDROcodone 325 MG/5 MG TAB PO PRN ×3 (05:39→23:53)
[2018-04-27] MEDS: INSULIN ASPART SUPPLEMENTAL SCALE SQ SCH ×3 (08:00→22:08)
[2018-04-27] MEDS: SODIUM CHLORIDE 0.9% FLUSH 10 ML FLUSH IV FLUSH SCH ×2 (09:00→22:08)
[2018-04-27] MEDS: INSULIN DETEMIR 100 UNITS/ML VIAL SQ SCH ×2 (09:00→22:07)
[2018-04-27] MEDS: CALCIUM ACETATE 667 MG CAP PO SCH ×3 (09:00→17:30)
[2018-04-27] MEDS: guaiFENesin E.R. 600 MG TAB PO SCH ×2 (09:00→21:00)
[2018-04-27] MEDS: DOCUSATE SODIUM 50 MG/SENNA 8.6 MG TAB PO SCH ×2 (09:00→22:06)
[2018-04-27] MEDS: NYSTATIN SUSP 500,000 U/5 ML CUP SWISH-SWAL SCH ×4 (09:00→22:08)
--- NOTE | 2018-04-27 10:10 | HHI.NPPN ---
Subjective Renal Failure: End Stage Renal Disease History of Present Illness This is a 67-year-old female known to me from before with a past medical history of ischemic heart disease, congestive heart failure with diastolic dysfunction, chronic obstructive pulmonary disease, recurrent pleural effusion, diabetes mellitus, chronic kidney disease,with advanced stage IV renal disease, who came to the hospital with a complaint of shortness of breath.Nephrology was called to see the patient because of her high BUN and creatinine. The patient has a known history of chronic kidney disease. She has been following with me and was admitted last month and at that time, her creatinine was as high as 3.0 and she was started on dialysis mainly for the fluid removal and now she came with a creatinine of 2.8. She was discharged with the serum creatinine of 2.8 to 2.9. She was taking her diuretics and according to her, she was watching her fluid and not drinking more than 40 ounces a day. Gradually, she saw her breathing has been getting worse and she has a cough with whitish sputum. She denies any chest pain. No palpitation. Additional Remarks Patient is alert. No complaints. Seen during hemodialysis (Jessica Clemons) Review of Systems General Constitutional: Fatigue (Jessica Clemons) Respiratory Respiratory Remarks Denies shortness of breath (Jessica Clemons) Gastrointestinal GI Remarks Denies abdominal pain (Jessica Clemons) Objective Data Data Vital Signs Date Time Temp Pulse Resp B/P (MAP) Pulse Ox O2 Delivery O2 Flow Rate FiO2 04/27/18 04:00 65 04/27/18 04:00 Nasal Cannula 2.00 04/27/18 04:00 98.6 67 16 160/65 (96) 98 04/27/18 00:00 97.8 60 16 162/69 (100) 97 04/27/18 00:00 Nasal Cannula 2.00 04/27/18 00:00 65 04/26/18 20:00 Nasal Cannula 2.00 04/26/18 20:00 97.0 60 18 134/63 (86) 98 04/26/18 20:00 97.0 60 18 134/63 (86) 98 04/26/18 20:00 70 04/26/18 18:23 Nasal Cannula 2.00 50 04/26/18 17:28 97.3 58 18 151/67 (95) 97 04/26/18 17:22 95 Nasal Cannula 2.00 04/26/18 16:35 58 16 158/70 (99) 95 04/26/18 16:05 60 18 148/66 (93) 95 04/26/18 15:50 97.6 61 16 153/64 (93) 93 04/26/18 12:00 98.4 64 18 138/62 (87) 98 04/26/18 10:14 98 Nasal Cannula 4.00 (Jessica Clemons) -: 04/25/18 0620 04/25/18 0620 Imaging Last Impressions Upper Extremity Ultrasound 04/26/18 0000 Signed Impressions: CONCLUSION: 1. Ultrasound vascular mapping of the right upper extremity, as above. Catheter Placement X-Ray 04/26/18 0000 Signed Impressions: CONCLUSION: 1. Uncomplicated Dialysis catheter placement as above. Head CT 04/10/18 0000 Signed Impressions: Service Date/Time: Tuesday, April 10, 2018 18:05 - CONCLUSION: No acute intracranial disease. Je Fletcher MD Chest X-Ray 04/09/18 1731 Signed Impressions: Service Date/Time: Monday, April 09, 2018 17:45 - CONCLUSION: 1. Increased interstitial markings bilaterally suggesting pulmonary edema. 2. There is continued consolidation left lower lung suggestive of infiltrate and effusion. 3. There is a small to moderate right-sided effusion David Lezama MD Tubes & Lines: Vas-Cath Tubes & Lines Comment Right IJ (Jessica Clemons) Physical Exam General Appearance: No Acute Distress, Comfortable (Jessica Clemons) Pulmonary Resp Exam: Breath Sounds Equal, No Distress, Decreased Bases (Jessica Clemons) Cardiology CV Exam: Regular (Jessica Clemons) Gastrointestinal/Abdomen GI Exam: Non-Tender, Bowel Sounds Present (Jessica Clemons) Genitourinary Exam: Flank Non-Tender (Jessica Clemons) Integumentary Skin Exam: Clear, Warm (Jessica Clemons) Extremeties Extremities Exam: Moderate Edema Extremeties Remarks Edema improving (Jessica Clemons) Neurologic Neuro Exam: Alert, Awake, Oriented (Jessica Clemons) Psychiatric Psych Exam: Appropriate Responses (Jessica Clemons) Assessment/Plan Discussed Condition With: Patient Assessment Summary: Fluid/Volume Overload Problem List: (1) Chronic kidney disease (CKD) stage G4/A1, severely decreased glomerular filtration rate (GFR) between 15-29 mL/min/1.73 square meter and albuminuria creatinine ratio less than 30 mg/g ICD Codes: N18.4 - Chronic kidney disease, stage 4 (severe) Plan: Patient has chronic kidney disease stage IV with a GFR of 16 to 17 which has now progressed to end stage renal disease. Plan Will Decrease Lasix Avoid fluid administration Avoid nephrotoxins permacath placement 04/27 Hemodialysis started on 04/21 Seen during hemodialysis Will continue with Wednesday, Wednesday, and Wednesday Case management consulted to facilitate setting up outpatient dialysis. Vascular consulted for AVF/vein mapping done will proceed outpatient Labs in AM (2) Diastolic CHF, acute ICD Codes: I50.31 - Acute diastolic (congestive) heart failure Plan: continue lasix (3) Hypertension ICD Codes: I10 - Essential (primary) hypertension Plan: Blood pressure elevated Procardia XL increased (4) Nausea & vomiting ICD Codes: R11.2 - Nausea with vomiting, unspecified Plan: GI consulted (Jessica Clmeons) Problem List: (1) Chronic kidney disease (CKD) stage G4/A1, severely decreased glomerular filtration rate (GFR) between 15-29 mL/min/1.73 square meter and albuminuria creatinine ratio less than 30 mg/g ICD Codes: N18.4 - Chronic kidney disease, stage 4 (severe) Plan: Patient has chronic kidney disease stage IV with a GFR of 16 to 17 which has now progressed to end stage renal disease. Plan Will Decrease Lasix Avoid fluid administration Avoid nephrotoxins permacath placement 04/27 Hemodialysis started on 04/21 Seen during hemodialysis Will continue with Wednesday, Wednesday, and Wednesday Case management consulted to facilitate setting up outpatient dialysis. Vascular consulted for AVF/vein mapping done will proceed outpatient Labs in AM. Patient seen and examined, agree with above. Out patient HD arrangement in process. (2) Diastolic CHF, acute ICD Codes: I50.31 - Acute diastolic (congestive) heart failure Plan: continue lasix (3) Hypertension ICD Codes: I10 - Essential (primary) hypertension Plan: Blood pressure elevated Procardia XL increased (4) Nausea & vomiting ICD Codes: R11.2 - Nausea with vomiting, unspecified Plan: GI consulted (Flavio Toro MD) Jessica Clemons April 27, 2018 10:10 Flavio Toro MD April 27, 2018 21:21
[2018-04-27] MEDS: EPOETIN ALFA 10,000 UNITS/ML VIAL IV PUSH PRN (11:13)
[2018-04-27] MEDS: HEPARIN SODIUM - IV 10,000 UNITS/10 ML VIAL PRN (11:13)
[2018-04-27] MEDS: GENTAMICIN SULFATE 20 MG/2 ML VIAL OTHER PRN (11:13)
[2018-04-27] MEDS: ISOSORBIDE MONONITRATE 60 MG CR TAB (IMDUR) PO SCH (13:21)
[2018-04-27] MEDS: PRASUGREL 10 MG TAB PO SCH (13:22)
[2018-04-27] MEDS: PANTOPRAZOLE SOD 40 MG DELAYED RELEASE TAB PO SCH ×2 (13:22→22:07)
[2018-04-27] MEDS: CARVEDILOL 6.25 MG TAB PO SCH ×2 (13:22→22:06)
[2018-04-27] MEDS: predniSONE 10 MG TAB PO SCH ×2 (13:22→22:07)
[2018-04-27] MEDS: FERROUS SULFATE 325 MG (65 MG ELEMENTAL IRON) TAB PO SCH ×2 (13:22→22:07)
[2018-04-27] MEDS: NIFEdipine 30 MG SUSTAINED RELEASE TAB PO SCH ×2 (13:22→22:06)
[2018-04-27] MEDS: ASPIRIN 81 MG CHEW TAB CHEW SCH (13:25)
[2018-04-27] MEDS: BUDESONIDE-FORMOTEROL 160/4.5 MCG INHALER INH SCH ×2 (13:26→21:00)
--- NOTE | 2018-04-27 15:30 | HHI.PR ---
Subjective Remarks Patient says she is feeling all right. Denies any chest pain shortness of breath. Denies nausea vomiting. Discussed with case management who is working on obtaining chair time for dialysis. Objective Vital Signs Date Time Temp Pulse Resp B/P (MAP) Pulse Ox O2 Delivery O2 Flow Rate FiO2 04/27/18 04:00 65 04/27/18 04:00 Nasal Cannula 2.00 04/27/18 04:00 98.6 67 16 160/65 (96) 98 04/27/18 00:00 97.8 60 16 162/69 (100) 97 04/27/18 00:00 Nasal Cannula 2.00 04/27/18 00:00 65 04/26/18 20:00 Nasal Cannula 2.00 04/26/18 20:00 97.0 60 18 134/63 (86) 98 04/26/18 20:00 97.0 60 18 134/63 (86) 98 04/26/18 20:00 70 04/26/18 18:23 Nasal Cannula 2.00 50 04/26/18 17:28 97.3 58 18 151/67 (95) 97 04/26/18 17:22 95 Nasal Cannula 2.00 04/26/18 16:35 58 16 158/70 (99) 95 04/26/18 16:05 60 18 148/66 (93) 95 04/26/18 15:50 97.6 61 16 153/64 (93) 93 I/O 04/26/18 04/26/18 04/26/18 04/27/18 04/27/18 04/27/18 07:00 15:00 23:00 07:00 15:00 23:00 Intake Total 60 ml 840 ml 240 ml Output Total 0 ml 2000 ml Balance 60 ml 840 ml 240 ml -2000 ml Intake Oral 60 ml 840 ml 240 ml Output Urine Total 0 ml Hemodialysis 2000 ml # Voids 0 0 1 # Bowel Movements 0 0 Result Diagram: 04/25/1861904/25/18619 Objective Remarks GENERAL: She is sitting up in chair at bedside. Appears comfortable. Alert and oriented 3. SKIN: Warm and dry. HEAD: Normocephalic. EYES: No scleral icterus. No injection or drainage. NECK: Supple, trachea midline. No JVD. CARDIOVASCULAR: Regular rate and rhythm without murmurs, gallops, or rubs. RESPIRATORY: Distant breath sounds secondary to body habitus. Sounds to be faint crackles in bases. No accessory muscle use. GASTROINTESTINAL: Abdomen soft, non-tender, nondistended. MUSCULOSKELETAL: No cyanosis. Trace peripheral edema bilateral lower extremities no broken skin. BACK: Nontender without obvious deformity. No CVA tenderness. A/P Assessment and Plan //COPD: Chronic Respiratory Failure w/ Acute Exacerbation,- patient 02 dependent //Hypoxemic respiratory failure - change to po Prednisone 20 mgpo bid today 04/20- continye taper -cotninue , Symbicort, DuoNeb, Mucinex. Pt home Nebulizer broken will need replacement on return home. = Shortness of breath improving. Continue diuresis, treatment for COPD. - NC 2 LNC- patient on chronic 02 //Left eye visual deficit. 2 day history without any pain. She says this appears to be improving somewhat. = CT head negative for acute process. Ophthalmology consult appreciated = Patient will need follow-up with ophthalmology as outpatient for laser ablation. //Anemia. 7.7. Likely secondary to anemia of chronic kidney disease. Consult nephrology as patient may require erythropoietin.transfuse as needed for Hgb <7 or if hemodynamically unstable. = hg continues stable // CHF: Acute on Chronic. Diastolic. Echo 01/03/18 w/ EF 55-60%, CXR w/ interstitial edema, h/o pleural effusion LLL w/ continued effusion, small to moderate right effusion, s/p Lasix in ER, Hypertension - elevated readings on diuresis Lasix 80 mg IV q 8 , monitor I/O. = cont fluid restriction. Strict intake and output. Continue to monitor - should improve when HD initiated - increase hydralazine to 100 mg tid, - continue coreg/CCB. Nitrates - increase doses = Improved on dialysis. //Chronic kidney disease - Nephrology ff . ON IV Lasix q 8 + Metolazone. decrease lasix to 80 mg bid // Hyperkalemia: Resolved patient was on Effiant and permcath can't be done = Effiant held today 04/21 = Dialysis as per nephrology. Appreciate assistance. = 04/26 awaiting eval for AV fistula, Vas-Cath. = Vascular access for hemodialysis as per nephrology. Appreciate assistance. // DM: Sliding scale w/ Accu-Cheks, - high readings on steroids resume home Levemir. - Increaase dose 8 units bid = sliding scale. = 04/27. Glucose acceptable. Patient compliant with regimen. //Persistent Nausea and vomiting- ? uremic symptoms- but patient already getting HD abdominal exam- benign - get GI consult today for evaluation ?EGD -start PPI = Pangastritis on biopsy. Appreciate GI assistance. Biopsies pending. Continue PPI. = EGD biopsies still pending. Continue PPI // DVT Prophylaxis: SCD/Teds Discharge Planning Pending improvement. now on NC. may need SNF/rehab on discharge. = Will need follow-up with ophthalmology for laser ablation =case management following. Appreciate assistance. = Will need clearance by nephrology. Patient will likely need dialysis as outpatient. = Awaiting eval for AV fistula/Vas-Cath. = GI biopsies pending but will not delay discharge. Timi Koehler MD April 27, 2018 15:30
[2018-04-27 17:22] LABS: AUTOMATED NEUTROPHIL # 13.6 TH/MM3 (1.8-7.7); BASOPHIL % 0.2 % (0.0-2.0); EOSINOPHIL % 0.2 % (0.0-4.0); HEMOGLOBIN 11.1 GM/DL (11.6-15.3); LYMPH % 2.7 % (9.0-44.0); LYMPHOCYTE # 0.4 TH/MM3 (1.0-4.8); MEAN CELL VOLUME 94.1 FL (80.0-100.0); MEAN CORPUSCULAR HEMOGLOBIN 30.6 PG (27.0-34.0); MEAN CORPUSCULAR HGB CONC 32.6 % (32.0-36.0); MONOCYTE # 0.7 TH/MM3 (0-0.9); NEUT % 91.9 % (16.0-70.0); PLATELET COUNT 234 TH/MM3 (150-450); RED BLOOD COUNT 3.61 MIL/MM3 (4.00-5.30); RED CELL DISTRIBUTION WIDTH 17.8 % (11.6-17.2); WHITE BLOOD COUNT 14.7 TH/MM3 (4.0-11.0)
[2018-04-27 18:15] LABS: BICARBONATE 30.9 MEQ/L (21.0-32.0); CALCIUM 8.2 MG/DL (8.5-10.1); CREATININE 1.64 MG/DL (0.50-1.00)
--- NOTE | 2018-04-27 20:24 | HHI.PR ---
Subjective Remarks 67 YOWF with COPD,Hypoxia,CHF,CKD Feels much better no CP Weaned to NC 1 lit Breathing better Looks comfortable. Objective Vital Signs Vital Signs Date Time Temp Pulse Resp B/P (MAP) Pulse Ox O2 Delivery O2 Flow Rate FiO2 04/27/18 19:55 98.2 74 16 151/70 (97) 97 04/27/18 18:00 96 Nasal Cannula 2.00 04/27/18 16:13 98 Nasal Cannula 1.50 04/27/18 16:00 97.6 73 16 172/74 (106) 94 04/27/18 16:00 18 04/27/18 12:00 97.7 95 16 124/74 (91) 93 04/27/18 08:00 98.3 70 18 154/60 (91) 97 04/27/18 04:00 65 04/27/18 04:00 Nasal Cannula 2.00 04/27/18 04:00 98.6 67 16 160/65 (96) 98 04/27/18 00:00 97.8 60 16 162/69 (100) 97 04/27/18 00:00 Nasal Cannula 2.00 04/27/18 00:00 65 I/O 04/26/18 04/26/18 04/26/18 04/27/18 04/27/18 04/27/18 07:00 15:00 23:00 07:00 15:00 23:00 Intake Total 60 ml 840 ml 240 ml 620 ml Output Total 0 ml 2000 ml Balance 60 ml 840 ml 240 ml -2000 ml 620 ml Intake Oral 60 ml 840 ml 240 ml 620 ml Output Urine Total 0 ml Hemodialysis 2000 ml # Voids 0 0 1 0 # Bowel Movements 0 0 0 Result Diagram: 04/27/18 1627 04/27/18 162 Objective Remarks GENERAL: MBMNWF, mild sob SKIN: Warm and dry. HEAD: Normocephalic. EYES: No scleral icterus. No injection or drainage. NECK: Supple, trachea midline. No JVD or lymphadenopathy. CARDIOVASCULAR: Regular rate and rhythm without murmurs, gallops, or rubs. RESPIRATORY: Breath sounds equal bilaterally. No accessory muscle use. GASTROINTESTINAL: Abdomen soft, non-tender, nondistended. MUSCULOSKELETAL: No cyanosis, ++ edema. BACK: Nontender without obvious deformity. No CVA tenderness. A/P Assessment and Plan IMPRESSION: 1. Respiratory insufficiency. 2. Congestive heart failure. 3. Pleural effusion. 4. Worsening renal functions. 5. Coronary artery disease status post stent placement. PLAN: Supplement 02 with NC Diurease . Aerosol nebs q 2 hrs prn Cont Abx Monitor pl eff Pred 10 mg bid Has home 02 Aaron Blankenship MD April 27, 2018 20:24
[2018-04-27] MEDS: ATORVASTATIN 40 MG TAB PO SCH (22:07)
[2018-04-28] VITALS (8 sets, daily range): BP systolic 135–175; BP diastolic 63–78; PULSE 57–85; RESP 16–18; TEMP 97.9–99.2; O2SAT 94–98
[2018-04-28] MEDS: SODIUM CHLORIDE 0.65% NASAL DRP/SPRY 30 ML BTL EACH NARE SCH ×7 (03:33→23:37)
[2018-04-28] MEDS: ACETAMINOPHEN/HYDROcodone 325 MG/5 MG TAB PO PRN ×3 (04:52→21:34)
[2018-04-28] MEDS: hydrALAZINE HCL 50 MG TAB PO SCH ×3 (04:53→21:34)
[2018-04-28] MEDS: guaiFENesin E.R. 600 MG TAB PO SCH ×2 (09:00→21:00)
[2018-04-28] MEDS: BUDESONIDE-FORMOTEROL 160/4.5 MCG INHALER INH SCH ×2 (09:00→21:00)
[2018-04-28] MEDS: INSULIN ASPART SUPPLEMENTAL SCALE SQ SCH ×4 (09:46→21:35)
[2018-04-28] MEDS: NYSTATIN SUSP 500,000 U/5 ML CUP SWISH-SWAL SCH ×4 (09:46→21:33)
[2018-04-28] MEDS: CALCIUM ACETATE 667 MG CAP PO SCH ×3 (09:46→17:23)
[2018-04-28] MEDS: PANTOPRAZOLE SOD 40 MG DELAYED RELEASE TAB PO SCH ×2 (09:46→21:34)
[2018-04-28] MEDS: CARVEDILOL 6.25 MG TAB PO SCH ×2 (09:46→21:33)
[2018-04-28] MEDS: FERROUS SULFATE 325 MG (65 MG ELEMENTAL IRON) TAB PO SCH ×2 (09:46→21:34)
[2018-04-28] MEDS: predniSONE 10 MG TAB PO SCH ×2 (09:46→21:33)
[2018-04-28] MEDS: NIFEdipine 30 MG SUSTAINED RELEASE TAB PO SCH ×2 (09:46→21:34)
[2018-04-28] MEDS: ISOSORBIDE MONONITRATE 60 MG CR TAB (IMDUR) PO SCH (09:47)
[2018-04-28] MEDS: DOCUSATE SODIUM 50 MG/SENNA 8.6 MG TAB PO SCH ×2 (09:47→21:34)
[2018-04-28] MEDS: PRASUGREL 10 MG TAB PO SCH (09:47)
[2018-04-28] MEDS: FUROSEMIDE 40 MG TAB PO SCH (09:47)
[2018-04-28] MEDS: SODIUM CHLORIDE 0.9% FLUSH 10 ML FLUSH IV FLUSH SCH ×2 (09:48→21:36)
[2018-04-28] MEDS: ASPIRIN 81 MG CHEW TAB CHEW SCH (09:48)
[2018-04-28] MEDS: INSULIN DETEMIR 100 UNITS/ML VIAL SQ SCH ×2 (09:48→21:35)
--- NOTE | 2018-04-28 10:17 | HHI.NPPN ---
Subjective Renal Failure: End Stage Renal Disease History of Present Illness This is a 67-year-old female known to me from before with a past medical history of ischemic heart disease, congestive heart failure with diastolic dysfunction, chronic obstructive pulmonary disease, recurrent pleural effusion, diabetes mellitus, chronic kidney disease,with advanced stage IV renal disease, who came to the hospital with a complaint of shortness of breath.Nephrology was called to see the patient because of her high BUN and creatinine. The patient has a known history of chronic kidney disease. She has been following with me and was admitted last month and at that time, her creatinine was as high as 3.0 and she was started on dialysis mainly for the fluid removal and now she came with a creatinine of 2.8. She was discharged with the serum creatinine of 2.8 to 2.9. She was taking her diuretics and according to her, she was watching her fluid and not drinking more than 40 ounces a day. Gradually, she saw her breathing has been getting worse and she has a cough with whitish sputum. She denies any chest pain. No palpitation. Additional Remarks Patient is alert and oriented eating breakfast. Denies any shortness of breath. Edema has improved. (Jessica Clemons) Review of Systems General Constitutional: Fatigue (Jessica Clemons) Respiratory Respiratory Remarks Denies shortness of breath (Jessica Clemons) Gastrointestinal GI Remarks Denies abdominal pain (Jessica Clemons) Objective Data Data Vital Signs Date Time Temp Pulse Resp B/P (MAP) Pulse Ox O2 Delivery O2 Flow Rate FiO2 04/28/18 08:00 98.4 65 16 146/65 (92) 94 04/28/18 05:00 98.7 68 18 167/72 (103) 95 04/28/18 04:00 Nasal Cannula 2.00 04/28/18 04:00 69 04/28/18 00:00 85 04/28/18 00:00 99.2 85 18 175/78 (110) 96 04/28/18 00:00 Nasal Cannula 2.00 04/27/18 22:11 98 Nasal Cannula 2.00 04/27/18 20:00 74 04/27/18 20:00 Nasal Cannula 2.00 04/27/18 19:55 98.2 74 16 151/70 (97) 97 04/27/18 18:00 96 Nasal Cannula 2.00 04/27/18 16:13 98 Nasal Cannula 1.50 04/27/18 16:00 97.6 73 16 172/74 (106) 94 04/27/18 16:00 18 04/27/18 12:00 97.7 95 16 124/74 (91) 93 (Jessica Clemons) -: 04/27/18 1627 04/27/18 1627 Tubes & Lines: Vas-Cath Tubes & Lines Comment Right IJ (Jessica Clemons) Physical Exam General Appearance: No Acute Distress, Comfortable (Jessica Clemons) Pulmonary Resp Exam: Breath Sounds Equal, No Distress, Decreased Bases (Jessica Clemons) Cardiology CV Exam: Regular (Jessica Clemons) Gastrointestinal/Abdomen GI Exam: Non-Tender, Bowel Sounds Present (Jessica Clemons) Genitourinary Exam: Flank Non-Tender (Jessica Clemons) Integumentary Skin Exam: Clear, Warm (Jessica Clemons) Extremeties Extremities Exam: Moderate Edema Extremeties Remarks Edema improving (Jessica Clemons) Neurologic Neuro Exam: Alert, Awake, Oriented (Jessica Clemons) Psychiatric Psych Exam: Appropriate Responses (Jessica Clemons) Assessment/Plan Discussed Condition With: Patient Assessment Summary: Fluid/Volume Overload Problem List: (1) Chronic kidney disease (CKD) stage G4/A1, severely decreased glomerular filtration rate (GFR) between 15-29 mL/min/1.73 square meter and albuminuria creatinine ratio less than 30 mg/g ICD Codes: N18.4 - Chronic kidney disease, stage 4 (severe) Plan: Patient has chronic kidney disease stage IV with a GFR of 16 to 17 which has now progressed to end stage renal disease. Plan Continue Lasix Avoid fluid administration Avoid nephrotoxins permacath placement 04/27 Hemodialysis started on 04/21 Will continue with Wednesday, Wednesday, and Wednesday HD yesterday with UF of 2 liters HD tomorrow Case management consulted to facilitate setting up outpatient dialysis. Vascular consulted for AVF/vein mapping done will proceed outpatient Cleared per nephrology for discharge when outpatient dialysis is arranged. (2) Diastolic CHF, acute ICD Codes: I50.31 - Acute diastolic (congestive) heart failure Plan: continue lasix (3) Hypertension ICD Codes: I10 - Essential (primary) hypertension Plan: Monitoring. (4) Nausea & vomiting ICD Codes: R11.2 - Nausea with vomiting, unspecified Plan: Resolved (Jessica Clemons) Problem List: (1) Chronic kidney disease (CKD) stage G4/A1, severely decreased glomerular filtration rate (GFR) between 15-29 mL/min/1.73 square meter and albuminuria creatinine ratio less than 30 mg/g ICD Codes: N18.4 - Chronic kidney disease, stage 4 (severe) Plan: Patient has chronic kidney disease stage IV with a GFR of 16 to 17 which has now progressed to end stage renal disease. Plan Continue Lasix Avoid fluid administration Avoid nephrotoxins permacath placement 04/27 Hemodialysis started on 04/21 Will continue with Wednesday, Wednesday, and Wednesday HD yesterday with UF of 2 liters HD tomorrow Case management consulted to facilitate setting up outpatient dialysis. Vascular consulted for AVF/vein mapping done will proceed outpatient Cleared per nephrology for discharge when outpatient dialysis is arranged. Patient seen and examined, agree with above. Breathing is better, continue HD as schedule. (2) Diastolic CHF, acute ICD Codes: I50.31 - Acute diastolic (congestive) heart failure Plan: continue lasix (3) Hypertension ICD Codes: I10 - Essential (primary) hypertension Plan: Monitoring. (4) Nausea & vomiting ICD Codes: R11.2 - Nausea with vomiting, unspecified Plan: Resolved (Flavio Toro MD) Jessica Clemons April 28, 2018 10:17 Flavio Toro MD April 28, 2018 12:34
--- NOTE | 2018-04-28 11:02 | HHI.PR ---
Subjective Remarks Patient says she is feeling all right. No overt complaints. Denies any chest pain or shortness of breath. Denies nausea or vomiting. Objective Vital Signs Date Time Temp Pulse Resp B/P (MAP) Pulse Ox O2 Delivery O2 Flow Rate FiO2 04/28/18 09:15 Nasal Cannula 2.00 04/28/18 08:00 68 04/28/18 08:00 98.4 65 16 146/65 (92) 94 04/28/18 05:00 98.7 68 18 167/72 (103) 95 04/28/18 04:00 Nasal Cannula 2.00 04/28/18 04:00 69 04/28/18 00:00 85 04/28/18 00:00 99.2 85 18 175/78 (110) 96 04/28/18 00:00 Nasal Cannula 2.00 04/27/18 22:11 98 Nasal Cannula 2.00 04/27/18 20:00 74 04/27/18 20:00 Nasal Cannula 2.00 04/27/18 19:55 98.2 74 16 151/70 (97) 97 04/27/18 18:00 96 Nasal Cannula 2.00 04/27/18 16:13 98 Nasal Cannula 1.50 04/27/18 16:00 97.6 73 16 172/74 (106) 94 04/27/18 16:00 18 04/27/18 12:00 97.7 95 16 124/74 (91) 93 I/O 04/27/18 04/27/18 04/27/18 04/28/18 04/28/18 04/28/18 06:59 14:59 22:59 06:59 14:59 22:59 Intake Total 240 ml 620 ml Output Total 2000 ml Balance 240 ml -2000 ml 620 ml Intake Oral 240 ml 620 ml Hemodialysis 2000 ml # Voids 1 0 # Bowel Movements 0 Result Diagram: 04/27/18 1627 04/27/18 162 Objective Remarks GENERAL: She is sitting up in chair at bedside. Appears comfortable. Alert and oriented 3. SKIN: Warm and dry. HEAD: Normocephalic. EYES: No scleral icterus. No injection or drainage. NECK: Supple, trachea midline. No JVD. CARDIOVASCULAR: Regular rate and rhythm without murmurs, gallops, or rubs. RESPIRATORY: Distant breath sounds secondary to body habitus. Sounds to be faint crackles in bases. No accessory muscle use. GASTROINTESTINAL: Abdomen soft, non-tender, nondistended. MUSCULOSKELETAL: No cyanosis. No edema bilateral lower extremities no broken skin. BACK: Nontender without obvious deformity. No CVA tenderness. A/P Assessment and Plan //COPD: Chronic Respiratory Failure w/ Acute Exacerbation,- patient 02 dependent //Hypoxemic respiratory failure - change to po Prednisone 20 mgpo bid today 04/20- continye taper -cotninue , Symbicort, DuoNeb, Mucinex. Pt home Nebulizer broken will need replacement on return home. = Shortness of breath improving. Continue diuresis, treatment for COPD. - NC 2 LNC- patient on chronic 02 //Left eye visual deficit. 2 day history without any pain. She says this appears to be improving somewhat. = CT head negative for acute process. Ophthalmology consult appreciated = Patient will need follow-up with ophthalmology as outpatient for laser ablation. //Anemia. 7.7. Likely secondary to anemia of chronic kidney disease. Consult nephrology as patient may require erythropoietin.transfuse as needed for Hgb <7 or if hemodynamically unstable. = hg continues stable // CHF: Acute on Chronic. Diastolic. Echo 01/03/18 w/ EF 55-60%, CXR w/ interstitial edema, h/o pleural effusion LLL w/ continued effusion, small to moderate right effusion, s/p Lasix in ER, Hypertension - elevated readings on diuresis Lasix 80 mg IV q 8 , monitor I/O. = cont fluid restriction. Strict intake and output. Continue to monitor - should improve when HD initiated - increase hydralazine to 100 mg tid, - continue coreg/CCB. Nitrates - increase doses = Improved on dialysis. //End-stage renal disease. - Nephrology ff . ON IV Lasix q 8 + Metolazone. decrease lasix to 80 mg bid // Hyperkalemia: Resolved patient was on Effiant and permcath can't be done = Effiant held today 04/21 = Dialysis as per nephrology. Appreciate assistance. = 04/26 awaiting eval for AV fistula, Vas-Cath. = Vascular access for hemodialysis as per nephrology. Appreciate assistance. // DM: Sliding scale w/ Accu-Cheks, - high readings on steroids resume home Levemir. - Increaase dose 8 units bid = sliding scale. = 30. Glucose acceptable. Patient compliant with regimen. //Persistent Nausea and vomiting- ? uremic symptoms- but patient already getting HD abdominal exam- benign - get GI consult today for evaluation ?EGD -start PPI = Pangastritis on biopsy. Appreciate GI assistance. Biopsies pending. Continue PPI. = EGD biopsies with reactive gastropathy.. Continue PPI // DVT Prophylaxis: SCD/Teds Discharge Planning Pending improvement. now on NC. may need SNF/rehab on discharge. = Will need follow-up with ophthalmology for laser ablation =case management following. Appreciate assistance. = Will need clearance by nephrology. Patient will likely need dialysis as outpatient. = Awaiting eval for AV fistula/Vas-Cath. = Waiting for chart time for dialysis Timi Koehler MD April 28, 2018 11:02
[2018-04-28 12:21] LABS: AUTOMATED NEUTROPHIL # 7.8 TH/MM3 (1.8-7.7); BASOPHIL % 0.4 % (0.0-2.0); EOSINOPHIL % 0.1 % (0.0-4.0); HEMATOCRIT 32.1 % (35.0-46.0); HEMOGLOBIN 10.6 GM/DL (11.6-15.3); LYMPHOCYTE # 0.5 TH/MM3 (1.0-4.8); MEAN CELL VOLUME 94.8 FL (80.0-100.0); MEAN CORPUSCULAR HEMOGLOBIN 31.4 PG (27.0-34.0); MEAN CORPUSCULAR HGB CONC 33.2 % (32.0-36.0); MEAN PLATELET VOLUME 7.9 FL (7.0-11.0); MONOCYTE # 0.4 TH/MM3 (0-0.9); NEUT % 88.5 % (16.0-70.0); PLATELET COUNT 210 TH/MM3 (150-450); RED BLOOD COUNT 3.38 MIL/MM3 (4.00-5.30); RED CELL DISTRIBUTION WIDTH 17.6 % (11.6-17.2); WHITE BLOOD COUNT 8.8 TH/MM3 (4.0-11.0)
--- NOTE | 2018-04-28 17:44 | HHI.FF ---
Face to Face Verification Diagnosis: (1) End stage renal disease on dialysis (2) DM (diabetes mellitus) (3) Renal insufficiency (4) Retinopathy due to secondary diabetes Physical Therapy Order: Evaluate and Treat Occupational Therapy Order: Evaluate and Treat Home Health Nursing Order: Medical education Diabetic education CHF education Nursing assessment with vital signs Instructions: Home health nurse for medication management. Home Health Aide Order: To Assist In: Bathing and personal care Doctor Of Osteopathy Order: To Evaluate: Living conditions/environment, Support services Order: To Provide: Long range planning, Community services I have seen patient Brinda Maynard on 04/28/18. My clinical findings support the need for the requested home health care services because: Limited ability to care for self Need for psychosocial assistance I certify that my clinical findings support that this patient is homebound because: Unsteady gait/balance Unsafe to leave home unassisted Timi Koehler MD April 28, 2018 17:44
--- NOTE | 2018-04-28 19:52 | HHI.PR ---
Subjective Remarks 67 YOWF with COPD,Hypoxia,CHF,CKD no CP Weaned to NC 1 lit Breathing better Looks comfortable. Objective Vital Signs Vital Signs Date Time Temp Pulse Resp B/P (MAP) Pulse Ox O2 Delivery O2 Flow Rate FiO2 04/28/18 17:49 95 Nasal Cannula 2.00 04/28/18 17:25 Nasal Cannula 2.00 04/28/18 16:00 98.1 57 18 135/63 (87) 95 04/28/18 16:00 62 04/28/18 12:00 62 04/28/18 12:00 98.2 62 16 141/64 (89) 96 04/28/18 12:00 Nasal Cannula 2.00 04/28/18 11:29 2.00 04/28/18 09:15 Nasal Cannula 2.00 04/28/18 08:00 68 04/28/18 08:00 98.4 65 16 146/65 (92) 94 04/28/18 05:00 98.7 68 18 167/72 (103) 95 04/28/18 04:00 Nasal Cannula 2.00 04/28/18 04:00 69 04/28/18 00:00 85 04/28/18 00:00 99.2 85 18 175/78 (110) 96 04/28/18 00:00 Nasal Cannula 2.00 04/27/18 22:11 98 Nasal Cannula 2.00 04/27/18 20:00 74 04/27/18 20:00 Nasal Cannula 2.00 04/27/18 19:55 98.2 74 16 151/70 (97) 97 I/O 04/27/18 04/27/18 04/27/18 04/28/18 04/28/18 04/28/18 07:00 15:00 23:00 07:00 15:00 23:00 Intake Total 240 ml 620 ml 720 ml Output Total 2000 ml 0 ml Balance 240 ml -2000 ml 620 ml 720 ml Intake Oral 240 ml 620 ml 720 ml Output Urine Total 0 ml Hemodialysis 2000 ml # Voids 1 0 # Bowel Movements 0 0 Result Diagram: 04/28/18 1132 04/27/18 1977 Objective Remarks GENERAL: MBMNWF, mild sob SKIN: Warm and dry. HEAD: Normocephalic. EYES: No scleral icterus. No injection or drainage. NECK: Supple, trachea midline. No JVD or lymphadenopathy. CARDIOVASCULAR: Regular rate and rhythm without murmurs, gallops, or rubs. RESPIRATORY: Breath sounds equal bilaterally. No accessory muscle use. GASTROINTESTINAL: Abdomen soft, non-tender, nondistended. MUSCULOSKELETAL: No cyanosis, ++ edema. BACK: Nontender without obvious deformity. No CVA tenderness. A/P Assessment and Plan IMPRESSION: 1. Respiratory insufficiency. 2. Congestive heart failure. 3. Pleural effusion. 4. Worsening renal functions. 5. Coronary artery disease status post stent placement. PLAN: Supplement 02 with NC Diurease . Aerosol nebs q 2 hrs prn Cont Abx Monitor pl eff Pred 10 mg bid Has home 02 Awaiting arrangement for out pt HD Aaron Blankenship MD April 28, 2018 19:52
[2018-04-28] MEDS: ATORVASTATIN 40 MG TAB PO SCH (21:34)
[2018-04-29] VITALS (7 sets, daily range): BP systolic 130–165; BP diastolic 66–81; PULSE 65–77; RESP 15–20; TEMP 98–98.2; O2SAT 96–100
[2018-04-29] MEDS: ACETAMINOPHEN/HYDROcodone 325 MG/5 MG TAB PO PRN ×2 (02:04→05:24)
[2018-04-29] MEDS: SODIUM CHLORIDE 0.65% NASAL DRP/SPRY 30 ML BTL EACH NARE SCH ×4 (03:12→17:25)
[2018-04-29] MEDS: hydrALAZINE HCL 50 MG TAB PO SCH ×2 (05:23→13:45)
[2018-04-29] MEDS: INSULIN ASPART SUPPLEMENTAL SCALE SQ SCH ×3 (08:00→17:00)
[2018-04-29] MEDS: CALCIUM ACETATE 667 MG CAP PO SCH ×3 (09:00→18:00)
[2018-04-29] MEDS: BUDESONIDE-FORMOTEROL 160/4.5 MCG INHALER INH SCH (09:00)
[2018-04-29] MEDS: DOCUSATE SODIUM 50 MG/SENNA 8.6 MG TAB PO SCH (09:00)
[2018-04-29] MEDS: guaiFENesin E.R. 600 MG TAB PO SCH (09:00)
[2018-04-29] MEDS: INSULIN DETEMIR 100 UNITS/ML VIAL SQ SCH (09:00)
[2018-04-29] MEDS: NYSTATIN SUSP 500,000 U/5 ML CUP SWISH-SWAL SCH ×3 (09:00→18:00)
[2018-04-29] MEDS: CARVEDILOL 6.25 MG TAB PO SCH (09:00)
--- NOTE | 2018-04-29 11:11 | HHI.PR ---
Subjective Remarks 67 YOWF with COPD,Hypoxia,CHF,CKD no CP Weaned to NC 1 lit Breathing better Looks comfortable. Undergoing HD Objective Vital Signs Vital Signs Date Time Temp Pulse Resp B/P (MAP) Pulse Ox O2 Delivery O2 Flow Rate FiO2 04/29/18 04:00 65 04/29/18 04:00 98.2 66 15 165/81 (109) 100 04/29/18 03:21 Nasal Cannula 2.00 04/29/18 00:00 67 04/29/18 00:00 98.2 72 18 158/68 (98) 96 04/29/18 00:00 Nasal Cannula 2.00 04/28/18 20:00 97.9 70 16 162/70 (100) 95 04/28/18 20:00 Nasal Cannula 2.00 04/28/18 20:00 67 04/28/18 17:49 95 Nasal Cannula 2.00 04/28/18 17:25 Nasal Cannula 2.00 04/28/18 16:00 98.1 57 18 135/63 (87) 95 04/28/18 16:00 62 04/28/18 12:00 62 04/28/18 12:00 98.2 62 16 141/64 (89) 96 04/28/18 12:00 Nasal Cannula 2.00 04/28/18 11:29 2.00 I/O 04/28/18 04/28/18 04/28/18 04/29/18 04/29/18 04/29/18 07:00 15:00 23:00 07:00 15:00 23:00 Intake Total 720 ml Output Total 0 ml 850 ml Balance 720 ml -850 ml Intake Oral 720 ml Output Urine Total 0 ml 850 ml # Bowel Movements 0 0 Result Diagram: 04/28/18 1132 04/27/18 1627 Objective Remarks GENERAL: MBMNWF, mild sob SKIN: Warm and dry. HEAD: Normocephalic. EYES: No scleral icterus. No injection or drainage. NECK: Supple, trachea midline. No JVD or lymphadenopathy. CARDIOVASCULAR: Regular rate and rhythm without murmurs, gallops, or rubs. RESPIRATORY: Breath sounds equal bilaterally. No accessory muscle use. GASTROINTESTINAL: Abdomen soft, non-tender, nondistended. MUSCULOSKELETAL: No cyanosis, ++ edema. BACK: Nontender without obvious deformity. No CVA tenderness. A/P Assessment and Plan IMPRESSION: 1. Respiratory insufficiency. 2. Congestive heart failure. 3. Pleural effusion. 4. Worsening renal functions. 5. Coronary artery disease status post stent placement. PLAN: Supplement 02 with NC Diurease . Aerosol nebs q 2 hrs prn Cont Abx Monitor pl eff Pred 10 mg bid Has home 02 Awaiting arrangement for out pt HD Will FU in office 2-3 weeks Aaron Blankenship MD Apr 29, 2018 11:11
--- NOTE | 2018-04-29 13:23 | HHI.NPPN ---
Subjective Renal Failure: End Stage Renal Disease History of Present Illness This is a 67-year-old female known to me from before with a past medical history of ischemic heart disease, congestive heart failure with diastolic dysfunction, chronic obstructive pulmonary disease, recurrent pleural effusion, diabetes mellitus, chronic kidney disease,with advanced stage IV renal disease, who came to the hospital with a complaint of shortness of breath.Nephrology was called to see the patient because of her high BUN and creatinine. The patient has a known history of chronic kidney disease. She has been following with me and was admitted last month and at that time, her creatinine was as high as 3.0 and she was started on dialysis mainly for the fluid removal and now she came with a creatinine of 2.8. She was discharged with the serum creatinine of 2.8 to 2.9. She was taking her diuretics and according to her, she was watching her fluid and not drinking more than 40 ounces a day. Gradually, she saw her breathing has been getting worse and she has a cough with whitish sputum. She denies any chest pain. No palpitation. Additional Remarks Patient is alert and oriented eating breakfast. Denies any shortness of breath. Edema has improved. Review of Systems General Constitutional: Fatigue Respiratory Respiratory Remarks Denies shortness of breath Gastrointestinal GI Remarks Denies abdominal pain Objective Data Data 04/29/18 04/30/18 19:00 07:00 Output Total 2000 ml Balance -2000 ml Hemodialysis 2000 ml Vital Signs Date Time Temp Pulse Resp B/P (MAP) Pulse Ox O2 Delivery O2 Flow Rate FiO2 04/29/18 12:00 Nasal Cannula 2.00 04/29/18 11:45 Nasal Cannula 2.00 04/29/18 04:00 65 04/29/18 04:00 98.2 66 15 165/81 (109) 100 04/29/18 03:21 Nasal Cannula 2.00 04/29/18 00:00 67 04/29/18 00:00 98.2 72 18 158/68 (98) 96 04/29/18 00:00 Nasal Cannula 2.00 04/28/18 20:00 97.9 70 16 162/70 (100) 95 04/28/18 20:00 Nasal Cannula 2.00 04/28/18 20:00 67 04/28/18 17:49 95 Nasal Cannula 2.00 5/31/18 17:25 Nasal Cannula 2.00 04/28/18 16:00 98.1 57 18 135/63 (87) 95 04/28/18 16:00 62 -: 04/28/18 1132 04/27/18 1627 Tubes & Lines: Vas-Cath Tubes & Lines Comment Right IJ Physical Exam General Appearance: No Acute Distress, Comfortable Pulmonary Resp Exam: Breath Sounds Equal, No Distress, Decreased Bases Cardiology CV Exam: Regular Gastrointestinal/Abdomen GI Exam: Non-Tender, Bowel Sounds Present Genitourinary Exam: Flank Non-Tender Integumentary Skin Exam: Clear, Warm Extremeties Extremities Exam: Moderate Edema Neurologic Neuro Exam: Alert, Awake, Oriented Psychiatric Psych Exam: Appropriate Responses Assessment/Plan Discussed Condition With: Patient Assessment Summary: Fluid/Volume Overload Problem List: (1) Chronic kidney disease (CKD) stage G4/A1, severely decreased glomerular filtration rate (GFR) between 15-29 mL/min/1.73 square meter and albuminuria creatinine ratio less than 30 mg/g ICD Codes: N18.4 - Chronic kidney disease, stage 4 (severe) Plan: Patient has chronic kidney disease stage IV with a GFR of 16 to 17 which has now progressed to end stage renal disease. Plan Continue Lasix Avoid fluid administration Avoid nephrotoxins permacath placement 04/27 Hemodialysis started on 04/21 Will continue with Wednesday, Wednesday, and Wednesday HD yesterday with UF of 2 liters HD tomorrow Case management consulted to facilitate setting up outpatient dialysis. Vascular consulted for AVF/vein mapping done will proceed outpatient Cleared per nephrology for discharge when outpatient dialysis is arranged. Patient seen and examined, agree with above. Breathing is better, continue HD as schedule. For discharge after HD arrangement. (2) Diastolic CHF, acute ICD Codes: I50.31 - Acute diastolic (congestive) heart failure Plan: continue lasix (3) Hypertension ICD Codes: I10 - Essential (primary) hypertension Plan: Monitoring. (4) Nausea & vomiting ICD Codes: R11.2 - Nausea with vomiting, unspecified Plan: Resolved Flavio Toro MD Apr 29, 2018 13:23
[2018-04-29] MEDS: PANTOPRAZOLE SOD 40 MG DELAYED RELEASE TAB PO SCH (13:43)
[2018-04-29] MEDS: ASPIRIN 81 MG CHEW TAB CHEW SCH (13:44)
[2018-04-29] MEDS: FUROSEMIDE 40 MG TAB PO SCH (13:44)
[2018-04-29] MEDS: NIFEdipine 30 MG SUSTAINED RELEASE TAB PO SCH (13:44)
[2018-04-29] MEDS: predniSONE 10 MG TAB PO SCH (13:44)
[2018-04-29] MEDS: PRASUGREL 10 MG TAB PO SCH (13:44)
[2018-04-29] MEDS: FERROUS SULFATE 325 MG (65 MG ELEMENTAL IRON) TAB PO SCH (13:45)
[2018-04-29] MEDS: ISOSORBIDE MONONITRATE 60 MG CR TAB (IMDUR) PO SCH (13:45)
[2018-04-29] MEDS: SODIUM CHLORIDE 0.9% FLUSH 10 ML FLUSH IV FLUSH SCH (13:46)
[2018-04-29] MEDS ORDERED: FURO40TA PO (15:44)
--- NOTE | 2018-04-29 15:46 | HHI.DCPOC ---
Discharge Care Plan Diagnosis: (1) End stage renal disease on dialysis (2) Hypoxia (3) Gastritis Goals to Promote Your Health * To prevent worsening of your condition and complications * To maintain your health at the optimal level Directions to Meet Your Goals Take your medications as prescribed Follow your dietary instruction Follow activity as directed Keep your appointments as scheduled Take your immunizations and boosters as scheduled If your symptoms worsen call your PCP, if no PCP go to Urgent Care Center or Emergency Room Smoking is Dangerous to Your Health. Avoid second hand smoke Call the 24-hour hour crisis hotline for domestic abuse at Chas Pedroza MD Apr 29, 2018 15:46
[2018-04-29] MEDS ORDERED: NEBULIZER1 MI1 (15:50)
[2018-04-29] MEDS ORDERED: PRED10 PO (15:52)
[2018-04-29] MEDS ORDERED: PANT40TA3 PO (15:52)
[2018-04-29] MEDS ORDERED: IPRASOL INH (15:54)
--- NOTE | 2018-04-29 16:10 | HHI.DS ---
Discharge Summary Admission Date April 09, 2018 at 19:34 Discharge Date: Apr 29, 2018 Admitting Diagnosis Hypoxia/CHF/COPD Exacerbation/Hyperkalemia (1) COPD (chronic obstructive pulmonary disease) ICD Code: J44.9 - Chronic obstructive pulmonary disease, unspecified (2) CHF (congestive heart failure) ICD Code: I50.9 - Heart failure, unspecified (3) Hypoxia ICD Code: R09.02 - Hypoxemia (4) Hyperkalemia ICD Code: E87.5 - Hyperkalemia (5) Anemia ICD Code: D64.9 - Anemia, unspecified (6) DM (diabetes mellitus) ICD Code: E11.9 - Type 2 diabetes mellitus without complications Procedures 04/21- Vas cath placement Right internal jugular hemodialysis non-tunneled catheter Brief History - From Admission This is a 67-year-old female with a PMH of HTN, Hyperlipidemia, CHF (Echo 2017 w/ EF 55-60%), COPD, CAD and DM who was brought to the ER by EMS secondary to severe SOB x2-3 days. Unable to use home nebulizer, because "my dog ate my machine". Today w/ severe SOB, O2 sat 85% on RA upon arrival, s/p Solu-Medrol and DuoNeb en route w/ some improvement. Denies fever, chills, cough or chest pain. On arrival, BP 209/87, HR 77, O2 sat 88% on RA, Afebrile. WBC normal. Hemoglobin 7.7, previously 11.0 on 03/15/2018. K+ 6.4. Creatinine 2.86, previously 2.93 on 03/15/2018. Troponin negative. INR 1.0. CXR with increased interstitial markings bilaterally suggesting pulmonary edema, continue consolidation left lower lung suggestive of infiltrate or effusion, small to moderate right-sided effusion. S/p Lasix/DuoNeb in ER w/ improvement. CBC/BMP: 04/28/18 1132 04/27/18 1627 Significant Findings Laboratory Tests Test 04/27/18 16:27 04/28/18 11:32 04/28/18 19:04 White Blood Count 14.7 TH/MM3 (4.0-11.0) Red Blood Count 3.61 MIL/MM3 (4.00-5.30) 3.38 MIL/MM3 (4.00-5.30) Hemoglobin 11.1 GM/DL (11.6-15.3) 10.6 GM/DL (11.6-15.3) Hematocrit 34.0 % (35.0-46.0) 32.1 % (35.0-46.0) Red Cell Distribution Width 17.8 % (11.6-17.2) 17.6 % (11.6-17.2) Neutrophils (%) (Auto) 91.9 % (16.0-70.0) 88.5 % (16.0-70.0) Lymphocytes (%) (Auto) 2.7 % (9.0-44.0) 6.0 % (9.0-44.0) Neutrophils # (Auto) 13.6 TH/MM3 (1.8-7.7) 7.8 TH/MM3 (1.8-7.7) Lymphocytes # (Auto) 0.4 TH/MM3 (1.0-4.8) 0.5 TH/MM3 (1.0-4.8) Blood Urea Nitrogen 30 MG/DL (7-18) Creatinine 1.64 MG/DL (0.50-1.00) Random Glucose 321 MG/DL (74-106) Calcium Level 8.2 MG/DL (8.5-10.1) Potassium Level 3.4 MEQ/L (3.5-5.1) Estimat Glomerular Filtration Rate 31 ML/MIN (>89) Hepatitis A IgM Antibody REACTIVE (NONREACTIVE) PE at Discharge Elderly female, lying in bed, no acute distress No lower extremity edema Unlabored breathing Hospital Course Patient was admitted, started on oxygen supplementation, steroids, DuoNeb treatments. He was also started on aggressive IV diuresis with nephrology consultation as well as ongoing dialysis while hospitalized. Patient underwent transfusion of 1 unit of blood and had an EGD which was suggestive of reactive gastropathy. Patient also had ophthalmological consultation inpatient due to a left visual defect which ultimately warranted outpatient management with possible laser ablation. Patient's respiratory status eventually stabilized and was weaned down to her home 2-3 L. She also had a Vas-Cath placed and had outpatient dialysis arrangements made for. Patient has met maximal benefit from hospitalization and is clinically stable for discharge home with home health. Patient affirm that she had more than adequate family support and was not interested in SNF rehab. Pt Condition on Discharge: Stable Discharge Disposition: Disch w/ Home Health Serv Discharge Time: <= 30 minutes Discharge Instructions DIET: Follow Instructions for: Renal Failure Diet Activities you can perform: See Additionl Instruction Other Activity Instructions: per PT recs Follow up Referrals: Appointment for Follow Up @ NEPHROLOGY with KELLEN HOROWITZ Appointment for Follow Up @ OPHTHALMOLOGY with KIMBERLY VILA MD Nephrology - 2 Days Ophthalmology - 1 Week with Kimberly Vila MD PCP Follow-up - 1 Week PCP Follow-up with KRISTEL SMITH Vascular Surgery - 2 Weeks @ Vascular Surgery with Linwood Luna MD AVF Eval (Duplex) - 05/10/18 @ 2:00 F/U- 05/11/18 @ 1:30 Vascular Surgery @ Vascular Surgery with Linwood Luna MD New Medications: Nebulizer (Nebulizer) 1 Mis Mis EA .XX DIRECTED for Breathing Treatment, #1 0 Refills Prednisone (Prednisone) 10 Mg Tab 10 MG PO BID for bronchitis, #42 TAB 0 Refills Furosemide (Furosemide) 40 Mg Tab 40 MG PO DAILY for renal failure, #30 TAB Pantoprazole (Pantoprazole) 40 Mg Tab 40 MG PO BID for gastritis, #60 TAB Continued Medications: Acetaminophen (Tylenol) 325 Mg Tab 325 MG PO Q4H PRN for PAIN SCALE 1 TO 5, TAB 0 Refills Albuterol 18 GM Inh (Ventolin Hfa 18 GM Inh) 90 Mcg/Act Aer 2 PUFF INH Q4-6H PRN for SHORTNESS OF BREATH, #1 INHALER 3 Refills Aspirin (Aspirin) 81 Mg Chew 81 MG CHEW DAILY, TAB 0 Refills Atorvastatin (Atorvastatin) 40 Mg Tab 40 MG PO HS for Cholesterol Management, #30 TAB 2 Refills Carvedilol (Coreg) 6.25 Mg Tab 6.25 MG PO Q12HR for Blood Pressure Management, #60 TAB 3 Refills Clonidine (Catapres) 0.1 Mg Tab 0.1 MG PO Q6H PRN for Uncontrolled Blood Pressure, #30 TAB Doxazosin (Cardura) 2 Mg Tab 2 MG PO DAILY for Blood Pressure Management, #30 TAB 3 Refills Ferrous Sulfate (Ferosul) 325 Mg (65 Mg Iron) Tablet 325 MG PO BID for Immunosuppression, #60 MG 3 Refills Hydralazine HCl (Hydralazine HCl) 50 Mg Tablet 75 MG PO Q8HR for Blood Pressure Management, #90 MG 3 Refills Hydrocodone-Acetaminophen (Hydrocodone-Acetaminophen) 5-325 mg Tab 1 TAB PO Q6H PRN for PAIN, #10 TAB 0 Refills Insulin Aspart Inj (Novolog Inj) 100 Unit/Ml Inj 1 UNITS SQ ACHS SLIDING SCALE for Blood Sugar Management for 30 Days, INJECTION Sliding Scale As Directed.150-199 1 Unit; 200-249 3 units; 250-299 5 Units; 300-349 7 Units; Insulin Detemir Inj (Levemir Inj) 1,000 unit/ 10 ML Vial 5 UNITS SQ Q12HR for Blood Sugar Management, #100 INJECTION 3 Refills Do not mix with any other Insulin. Ipratropium-Albuterol Neb (Duoneb) 0.5-2.5 Mg/3 Ml Neb 1 NEBULE INH Q4HR NEB for SHORTNESS OF BREATH, #120 NEBULE 1 Refill (This prescription has been renewed) Isosorbide Mononitrate ER (Isosorbide Mononitrate ER) 60 Mg Tab 60 MG PO DAILY for Prevent Chest Pain, #30 TAB 0 Refills Nifedipine ER 24 HR (Nifedipine ER 24 HR) 30 Mg Tab 30 MG PO Q12HR for Blood Pressure Management, #60 TAB 3 Refills Prasugrel (Effient) 10 Mg Tab 10 MG PO DAILY for Blood Clot Prevention, #30 TAB 0 Refills Spironolactone (Aldactone) 25 Mg Tab 12.5 MG PO DAILY for Prevent Heart Failure, #30 TAB 3 Refills [Budeson-Formot 160-4.5 Mcg Inh] () 60 PUFF AERO 2 PUFF INH Q12HR for Shortness of Breath for 30 Days, INHALER Discontinued Medications: Doxazosin (Cardura) 2 Mg Tab 2 MG PO DAILY for Blood Pressure Management, #30 TAB 3 Refills Chas Pedroza MD Apr 29, 2018 16:09
== END 2018-04-29 18:45 | disposition home health service (06) | DRG 189 ==
LOC: NEPE 17:19 → NEDA 19:34 → HCIS 22:15 → N04A 04-22 19:01 → N04B 04-22 19:04
PROVIDERS: ADMIT Hospitalist; ATTEND Hospitalist
PROC: 0T9B70Z Drainage of Bladder with Drainage Device, Via Natural or Artificial Opening (ICD-10-PCS; principal; 2018-04-09)
PROC: 3E0F7GC Introduction of Other Therapeutic Substance into Respiratory Tract, Via Natural or Artificial Opening (ICD-10-PCS; 2018-04-09)
PROC: 30233N1 Transfusion of Nonautologous Red Blood Cells into Peripheral Vein, Percutaneous Approach (ICD-10-PCS; 2018-04-16)
PROC: 05HM33Z Insertion of Infusion Device into Right Internal Jugular Vein, Percutaneous Approach (ICD-10-PCS; 2018-04-21)
PROC: 5A1D70Z Performance of Urinary Filtration, Intermittent, Less than 6 Hours Per Day (ICD-10-PCS; 2018-04-21)
PROC: 0DB98ZX Excision of Duodenum, Via Natural or Artificial Opening Endoscopic, Diagnostic (ICD-10-PCS; 2018-04-22)
PROC: 0DB68ZX Excision of Stomach, Via Natural or Artificial Opening Endoscopic, Diagnostic (ICD-10-PCS; 2018-04-22)
DX: J96.21 Acute and chronic respiratory failure with hypoxia (principal); I50.33 Acute on chronic diastolic (congestive) heart failure; N18.4 Chronic kidney disease, stage 4 (severe); B37.0 Candidal stomatitis; E11.22 Type 2 diabetes mellitus with diabetic chronic kidney disease; N18.6 End stage renal disease; J44.1 Chronic obstructive pulmonary disease with (acute) exacerbation; I13.2 Hypertensive heart and chronic kidney disease with heart failure and with stage 5 chronic kidney disease, or end stage renal disease; E87.5 Hyperkalemia; S40.812A Abrasion of left upper arm, initial encounter; D63.1 Anemia in chronic kidney disease; E78.5 Hyperlipidemia, unspecified; D50.9 Iron deficiency anemia, unspecified; W18.11XA Fall from or off toilet without subsequent striking against object, initial encounter; Y93.89 Activity, other specified; Y92.002 Bathroom of unspecified non-institutional (private) residence as the place of occurrence of the external cause; Z79.01 Long term (current) use of anticoagulants; Z79.82 Long term (current) use of aspirin; M19.90 Unspecified osteoarthritis, unspecified site; I25.2 Old myocardial infarction; I25.10 Atherosclerotic heart disease of native coronary artery without angina pectoris; E11.3593 Type 2 diabetes mellitus with proliferative diabetic retinopathy without macular edema, bilateral; K44.9 Diaphragmatic hernia without obstruction or gangrene; G43.909 Migraine, unspecified, not intractable, without status migrainosus; Z87.891 Personal history of nicotine dependence; Z95.5 Presence of coronary angioplasty implant and graft; Z79.4 Long term (current) use of insulin; Z86.19 Personal history of other infectious and parasitic diseases; K21.0 Gastro-esophageal reflux disease with esophagitis; Z86.010 Personal history of colon polyps; Z80.0 Family history of malignant neoplasm of digestive organs; K29.70 Gastritis, unspecified, without bleeding; K31.9 Disease of stomach and duodenum, unspecified; K64.8 Other hemorrhoids; Z99.2 Dependence on renal dialysis; Z99.81 Dependence on supplemental oxygen
CPT/HCPCS: 36430; 36556; 36558; 36600; 51702; 70450; 71045; 76937; 77001; 80048; 80053; 80069; 80074; 81001; 82550; 82552; 82728; 82805; 82948; 83540; 83550; 83615; 83735; 83880; 84100; 84132; 84484; 85025; 85027; 85044; 85610; 85730; 86850; 86900; 86901; 86920; 87641; 88305; 90935; 93005; 93971; 94640; 94664; 96374; 96375; 99152; 99153; C1750; C1752; C1769; C9113; J0360; J0690; J1205; J1580; J1644; J1815; J1940; J2250; J2270; J2765; J2920; J3010; J3370; J7030; J7050; J7512; P9016; P9047; Q4081

== ENCOUNTER 2018-06-03 15:52 | Inpatient (IN) ==
[2018-06-03 17:06] LABS: Baso % (Auto) 0.3 % (0.0-2.0); Hematocrit 38.3 % (35.0-46.0); Hemoglobin 11.9 gm/dL (11.6-15.3); Lymph # (Auto) 0.6 th/mm3 (1.0-4.8); Lymph % (Auto) 4.2 % (9.0-44.0); Mean Corpuscular Hemoglobin 29.9 pg (27.0-34.0); Mean Corpuscular Volume 96.7 fL (80.0-100.0); Mean Platelet Volume 9.3 fL (7.0-11.0); Mono # (Auto) 0.8 th/mm3 (0.0-0.9); Mono % (Auto) 5.5 % (0.0-8.0); Neut # (Auto) 13.5 th/mm3 (1.8-7.7); Platelet Count 205 th/mm3 (150-450); Red Blood Count 3.96 mil/mm3 (4.00-5.30); Red Cell Distribution Width 18.1 % (11.6-17.2); White Blood Count 14.9 th/mm3 (4.0-11.0)
--- NOTE | 2018-06-03 17:10 | ED ---
HPI General Chief Complaint: Back Pain/Injury Stated Complaint: Diabetic/evac Time Seen by Provider: 06/03/18 16:16 History of Present Illness HPI Narrative: Patient comes emergency department from dialysis complaining of tailbone pain. Patient reports this is chronic and for a long time however got worse today while sitting in chairs at dialysis. Patient denies any new injury , loss change in bowel or bladder, fevers, radiation of pain. Patient denies any chest pain or shortness of breath. Patient states she did not take her insulin today secondary to undergoing dialysis. Patient complaining of a headache and frontal lobes as throbbing-like in nature ongoing for 3 days. Denies anything making it better or worse. Denies any other symptoms. Related Data Home Medications Medication Instructions Recorded Confirmed albuterol sulfate [Ventolin HFA] 2 puff INHALATION Q6H PRN 06/03/18 06/03/18 aspirin 81 mg PO DAILY 06/03/18 06/03/18 atorvastatin 40 mg PO HS 06/03/18 06/03/18 budesonide-formoterol [Symbicort] 2 puff INHALATION BID 06/03/18 06/03/18 carvedilol 6.25 mg PO BID 06/03/18 06/03/18 clonidine HCl [Catapres] 0.1 mg PO TID PRN 06/03/18 06/03/18 doxazosin 2 mg PO DAILY 06/03/18 06/03/18 ferrous sulfate 325 mg PO DAILY 06/03/18 06/03/18 furosemide 40 mg PO DAILY 06/03/18 06/03/18 hydralazine 50 mg PO TID 06/03/18 06/03/18 insulin detemir U-100 [Levemir 20 unit SUB-Q BID 06/03/18 06/03/18 U-100 Insulin] isosorbide mononitrate 60 mg PO DAILY 06/03/18 06/03/18 nifedipine 30 mg PO BID 06/03/18 06/03/18 Allergies Allergy/AdvReac Type Severity Reaction Status Date / Time propoxyphene Allergy Intermediate RASH Verified 06/03/18 16:05 Review of Systems Except as stated in HPI: all other systems reviewed are negative [facility] Medical History Medical History Anemia (Acute) CAD (coronary artery disease) (Acute) CHF (congestive heart failure) (Acute) COPD (chronic obstructive pulmonary disease) (Acute) Diabetes (Acute) ESRD (end stage renal disease) on dialysis (Acute) Hyperkalemia (Acute) Hypoxia (Acute) Surgical History Surgical History H/O: (Acute) History of tonsillectomy (Acute) Hx of appendectomy (Acute) Hx of heart artery stent (Acute) Family History Family History Other No pertinent family history Social History Social History Second Hand Smoke Exposure: No Smoking Status: Former smoker Tobacco Type: Cigarettes How Often Do You Have a Drink Containing Alcohol: Never Recent Travel in [facility] within the Last 8 Weeks: No Recent Out of Country Travel within the Last 8 Weeks: No Immunization History Tetanus Immunization: <5 Years Hx Influenza Vaccine This Season: Yes Exam Narrative Exam Narrative: GENERAL: Well-developed, overly nourished, in no acute distress , and non-ill appearing. SKIN: Focused skin assessment warm and dry. HEAD: Atraumatic. Normocephalic. EYES: Pupils equal and round. EOMI. No scleral icterus. No injection or drainage. ENT: No nasal bleeding or discharge. Mucous membranes pink and moist. NECK: Trachea midline. Supple. No nuclear rigidity. CARDIOVASCULAR: Regular rate and rhythm. No murmur appreciated. RESPIRATORY: No accessory muscle use. No respiratory distress. Clear to auscultation. Breath sounds equal bilaterally. GASTROINTESTINAL: Abdomen soft, nondistended, and no guarding. Hepatic and splenic margins not palpable. Normal bowel sounds x4. No pulsatile mass. Patient reports tenderness palpation suprapubic area. MUSCULOSKELETAL: No obvious deformities. No clubbing. No cyanosis. No edema. Full range of motion. Patient reports point tenderness over tailbone. There is no pilonidal cyst or pressure ulcer noted. NEUROLOGICAL: Awake and alert. No obvious cranial nerve deficits. Motor grossly within normal limits. Normal speech. PSYCHIATRIC: Appropriate mood and affect; insight and judgment normal. Course Initial Documented Vital Signs Temperature 97.8 F 06/03/18 16:00 Pulse Rate 70 06/03/18 16:00 Respiratory Rate 17 06/03/18 16:00 Blood Pressure 148/63 H 06/03/18 16:00 Last Documented Vital Signs Temperature 97.8 F 06/03/18 18:23 Pulse Rate 78 06/03/18 18:23 Respiratory Rate 18 06/03/18 19:15 Blood Pressure 132/63 06/03/18 19:15 Pulse Oximetry 96 06/03/18 19:15 Medical Decision Making MDM Narrative Medical decision making narrative: Patient was seen and examined. IV was established patient placed on cardiac monitoring. Initial laboratory radiological studies were ordered. Patient bedside glucose was found to be critically high patient was given 8 units of insulin IV pending lab results. Upon reviewing the lab results. Insulin drip was ordered as well as a beta hydroxybutyrate and a venous blood gas. CAT scan showed gaseous organism in the bladder patient was started on IV cefepime for suspected UTI. Discussed patient with Dr. Hernandez, who saw and evaluated the patient is in agreement with plan of care disposition. Discussed all findings and plan of care with patient , who is agreeable for admission. All questions were answered. Discussed patient with hospitalist, who is agreeable to admit the patient. Patient remained stable throughout ED course. Differential Diagnosis Differential Diagnosis: Fracture, contusion, chronic pain, osteomyelitis, UTI, medical extremities, DKA, uncontrolled diabetes Lab Data Lab results reviewed: Yes I reviewed the patient's lab results. Result diagrams: 06/03/18 16:20 06/03/18 16:20 Lab Results 06/03/18 06/03/18 06/03/18 Range/Units 16:19 16:20 16:20 WBC 14.9 H (4.0-11.0) th/mm3 RBC 3.96 L (4.00-5.30) mil/mm3 Hgb 11.9 (11.6-15.3) gm/dL Hct 38.3 (35.0-46.0) % MCV 96.7 (80.0-100.0) fL MCH 29.9 (27.0-34.0) pg MCHC 31.0 L (32.0-36.0) % RDW 18.1 H (11.6-17.2) % Plt Count 205 (150-450) th/mm3 MPV 9.3 (7.0-11.0) fL Neut % (Auto) 90.0 H (16.0-70.0) % Lymph % (Auto) 4.2 L (9.0-44.0) % Henderson % (Auto) 5.5 (0.0-8.0) % Eos % (Auto) 0.0 (0.0-4.0) % Baso % (Auto) 0.3 (0.0-2.0) % Neut # (Auto) 13.5 H (1.8-7.7) th/mm3 Lymph # (Auto) 0.6 L (1.0-4.8) th/mm3 Henderson # (Auto) 0.8 (0.0-0.9) th/mm3 Eos # (Auto) 0.0 (0.0-0.4) th/mm3 Baso # (Auto) 0.0 (0.0-0.2) th/mm3 WBC Differential . Differential Comment Auto diff final Puncture Site Patient Temperature VBG pH (7.360-7.400) VBG pCO2 (44-48) mmHG VBG pO2 (35-40) mmHG VBG HCO3 (22-26) mmol/L VBG O2 Saturation (70-76) % VBG O2 Content (9.0-17.0) Vol % VBG Base Excess (-2-2) mmol/L VBG Carboxyhemoglobin (0-4) % VBG Methemoglobin (0-2) % Hemoglobin (12.0-16.0) G/DL Inspired O2 % Critical Value Sodium 131 L (136-145) meq/L Potassium 5.6 H (3.5-5.1) meq/L Chloride 99 (98-107) meq/L Carbon Dioxide 13.7 L (21.0-32.0) meq/L Anion Gap 18 H (5-15) meq/L BUN 33 H (7-18) mg/dL Creatinine 1.76 H (0.50-1.00) mg/dL Estimated GFR 29 L (>89) mL/min POC Glucose Greater than 600 H* (68-110) mg/dl Random Glucose 642 H* (74-106) mg/dL Calcium 8.5 (8.5-10.1) mg/dL Beta-Hydroxybutyric Acd (0.00-0.39) mmol/L 06/03/18 06/03/18 06/03/18 Range/Units 17:49 18:00 18:02 WBC (4.0-11.0) th/mm3 RBC (4.00-5.30) mil/mm3 Hgb (11.6-15.3) gm/dL Hct (35.0-46.0) % MCV (80.0-100.0) fL MCH (27.0-34.0) pg MCHC (32.0-36.0) % RDW (11.6-17.2) % Plt Count (150-450) th/mm3 MPV (7.0-11.0) fL Neut % (Auto) (16.0-70.0) % Lymph % (Auto) (9.0-44.0) % Henderson % (Auto) (0.0-8.0) % Eos % (Auto) (0.0-4.0) % Baso % (Auto) (0.0-2.0) % Neut # (Auto) (1.8-7.7) th/mm3 Lymph # (Auto) (1.0-4.8) th/mm3 Henderson # (Auto) (0.0-0.9) th/mm3 Eos # (Auto) (0.0-0.4) th/mm3 Baso # (Auto) (0.0-0.2) th/mm3 WBC Differential Differential Comment Puncture Site Not Reportable Patient Temperature 98.6 VBG pH 7.30 L (7.360-7.400) VBG pCO2 35 L (44-48) mmHG VBG pO2 38 (35-40) mmHG VBG HCO3 17 L (22-26) mmol/L VBG O2 Saturation 58 L (70-76) % VBG O2 Content 9.4 (9.0-17.0) Vol % VBG Base Excess -8.3 L (-2-2) mmol/L VBG Carboxyhemoglobin 1.7 (0-4) % VBG Methemoglobin 0.9 (0-2) % Hemoglobin 11.4 L (12.0-16.0) G/DL Inspired O2 21 % Critical Value No Sodium (136-145) meq/L Potassium (3.5-5.1) meq/L Chloride (98-107) meq/L Carbon Dioxide (21.0-32.0) meq/L Anion Gap (5-15) meq/L BUN (7-18) mg/dL Creatinine (0.50-1.00) mg/dL Estimated GFR (>89) mL/min POC Glucose Greater than 600 H* (68-110) mg/dl Random Glucose (74-106) mg/dL Calcium (8.5-10.1) mg/dL Beta-Hydroxybutyric Acd 3.65 H (0.00-0.39) mmol/L 06/03/18 06/03/18 Range/Units 19:14 20:26 WBC (4.0-11.0) th/mm3 RBC (4.00-5.30) mil/mm3 Hgb (11.6-15.3) gm/dL Hct (35.0-46.0) % MCV (80.0-100.0) fL MCH (27.0-34.0) pg MCHC (32.0-36.0) % RDW (11.6-17.2) % Plt Count (150-450) th/mm3 MPV (7.0-11.0) fL Neut % (Auto) (16.0-70.0) % Lymph % (Auto) (9.0-44.0) % Henderson % (Auto) (0.0-8.0) % Eos % (Auto) (0.0-4.0) % Baso % (Auto) (0.0-2.0) % Neut # (Auto) (1.8-7.7) th/mm3 Lymph # (Auto) (1.0-4.8) th/mm3 Henderson # (Auto) (0.0-0.9) th/mm3 Eos # (Auto) (0.0-0.4) th/mm3 Baso # (Auto) (0.0-0.2) th/mm3 WBC Differential Differential Comment Puncture Site Patient Temperature VBG pH (7.360-7.400) VBG pCO2 (44-48) mmHG VBG pO2 (35-40) mmHG VBG HCO3 (22-26) mmol/L VBG O2 Saturation (70-76) % VBG O2 Content (9.0-17.0) Vol % VBG Base Excess (-2-2) mmol/L VBG Carboxyhemoglobin (0-4) % VBG Methemoglobin (0-2) % Hemoglobin (12.0-16.0) G/DL Inspired O2 % Critical Value Sodium (136-145) meq/L Potassium (3.5-5.1) meq/L Chloride (98-107) meq/L Carbon Dioxide (21.0-32.0) meq/L Anion Gap (5-15) meq/L BUN (7-18) mg/dL Creatinine (0.50-1.00) mg/dL Estimated GFR (>89) mL/min POC Glucose 564 H* 535 H* (68-110) mg/dl Random Glucose (74-106) mg/dL Calcium (8.5-10.1) mg/dL Beta-Hydroxybutyric Acd (0.00-0.39) mmol/L Imaging Data Radiologist's impression: ITS Impressions Abdomen/Pelvis CT 06/03/18 16:41 CONCLUSION: 1. Extensive air throughout the urinary bladder suggestive of a gas-forming organism. Clinical correlation is recommended. 2. Severe anasarca. 3. Moderate-sized left pleural effusion and small right pleural effusion. 4. Compressive atelectasis and/or infiltrate within left lung base. 5. Minimal ascites. 6. Table partially calcified left adrenal mass measuring 4 cm. Discharge Plan Discharge Disposition Patient Disposition: 30 Still Patient Discharge Details Discharge Problem: DKA (diabetic ketoacidoses), Acute UTI Physicians Team ED Provider: Quirino Hernandez ED Midlevel Provider: Jesse Honeycutt Primary Care Provider: Ilsa Treviño Attending Provider: Venita Hook Status ED Status: Admitted Patient
[2018-06-03 17:36] LABS: Calcium 8.5 mg/dL (8.5-10.1); Carbon Dioxide 13.7 meq/L (21.0-32.0)
[2018-06-03 17:48] LABS: Potassium 5.6 meq/L (3.5-5.1)
[2018-06-03] MEDS ORDERED: Insulin Regular (For Infusion) 100 UNIT in Sodium Chlor 0.9% Inj 99 ML IV.CONT PRN (18:02)
[2018-06-03 18:23] LABS: VBG Base Excess -8.3 mmol/L (-2-2); VBG Blood Gas Oxygen Content 9.4 Vol % (9.0-17.0); VBG PCO2 35 mmHG (44-48); VBG PO2 38 mmHG (35-40)
--- NOTE | 2018-06-03 18:26 | CT ---
EXAM DATE: 06/03/2018 6:11 PM EDT AGE/SEX: 67 years / Female INDICATIONS: Tailbone pain after sitting for extended period. CLINICAL DATA: This is the patient's initial encounter. Patient reports that signs and symptoms have been present for 1 day and indicates a pain score of 3/10. MEDICAL/SURGICAL HISTORY: Renal disease, end stage. Chronic obstructive pulmonary disease. Ca rdiovascular disease. CHF, diabetes. Appendectomy. section. Coronary artery stent. RADIATION DOSE: 15.49 CTDI (mGy) COMPARISON: [facility] – [place], [place] ABDOMEN & PELVIS W/O CONTRAST, 11/09/2017. . TECHNIQUE: Multiple contiguous axial images were obtained through the abdomen. Images were obtained using multiple row detector helical technique. Using automated exposure control and adjustment of the mA and/or kV according to patient size, radiation dose was kept as low as reasonably achievable to o btain optimal diagnostic quality images. DICOM format image data is available electronically for rev iew and comparison. FINDINGS: Severe anasarca is again noted. Small right pleural effusion and moderate-sized left pleura l effusion is noted. Compressive atelectasis and/or infiltrate is noted within the left lung base. Mi nimal ascites is noted. There is a partially calcified mass in the expected location of the left adre nal gland measuring approximately 4 cm which is stable compared to previous examination. There is ext ensive air throughout the urinary bladder suggestive of gas-forming organism. Clinical correlation is recommended. CONCLUSION: 1. Extensive air throughout the urinary bladder suggestive of a gas-forming organism. Clinical corre lation is recommended. 2. Severe anasarca. 3. Moderate-sized left pleural effusion and small right pleural effusion. 4. Compressive atelectasis and/or infiltrate within left lung base. 5. Minimal ascites. 6. Table partially calcified left adrenal mass measuring 4 cm. Electronically signed by: Linwood Chadwick MD 06/03/2018 6:25 PM EDT
[2018-06-03] MEDS: Insulin Regular (For Infusion) 100 UNIT in Sodium Chlor 0.9% Inj 99 ML IV.CONT PRN (19:18)
[2018-06-03 20:59] LABS: Bacteria,Urine Moderate /hpf; Bilirubin,Urine Negative (Negative); Clarity,Urine Turbid (Clear); Color,Urine Red (Yellw/Straw); Glucose,Urine (UA) 500 or Greater mg/dL (Negative); Leukocyte Esterase,Urine Small (Negative); Nitrite,Urine Negative (Negative); Specific Gravity,Urine 1.018 (1.002-1.035); Squamous Epithelial Cell,Urine 5 /hpf (0-5)
[2018-06-03] MEDS ORDERED: Sodium Phosphate Inj 15 MMOL in Sodium Chlor 0.9% Inj 100 ML IV.SIG PRN (21:40)
[2018-06-03] MEDS ORDERED: Potassium Chlor 40 mEq Premix 40 MEQ/100 ML PIGGYBACK IV.SIG PRN ×2 (21:40)
[2018-06-03] MEDS ORDERED: Potassium Chlor 20 mEq Premix 20 MEQ/100 ML PIGGYBACK IV.SIG PRN ×6 (21:40)
[2018-06-03] MEDS ORDERED: Dextrose 5%/NaCl 0.9% Inj 1,000 ML IV.CONT SCH (21:45)
[2018-06-03] MEDS ORDERED: Sod Chloride 0.9% Inj 1,000 ML IV.CONT SCH (21:45)
[2018-06-03] MEDS ORDERED: Morphine Inj 4 MG/ML Vial IV.PUSH ONE (21:51)
[2018-06-03] MEDS ORDERED: cloNIDine Susp (NICU) 20 MCG/ML 30 ML Bottle PO PRN (22:22)
[2018-06-04] MEDS: Chlorhexidine Gluconate 2% 1 Pack (2 Cloths) TOPICAL SCH (03:03)
[2018-06-04 03:52] LABS: Calcium 8.3 mg/dL (8.5-10.1); Carbon Dioxide 18.7 meq/L (21.0-32.0); Magnesium 1.7 mg/dL (1.5-2.5); Potassium 3.8 meq/L (3.5-5.1)
[2018-06-04 03:53] LABS: Phosphorus 4.1 mg/dL (2.5-4.9)
--- NOTE | 2018-06-04 03:56 | P.HP ---
History of Present Illness Service: [facility] Primary Care Physician: NICHOLAS Benoit History of Present Illness: 67-year-old female with a past medical history significant for CHF, COPD, end- stage renal disease on dialysis, diabetes mellitus and coronary artery disease presents the emergency department for evaluation of dizziness and nausea. The patient reports that she was "just not feeling well." She states she felt as if she was in DKA. She states she has been compliant with her insulin although she cannot tell me how many times a day she takes her insulin or what her usual dosing is. The patient also reports that she takes her sugar at home with a glucometer but she cannot remember what her numbers have been recently. She is an extremely poor historian and her compliance is questionable. She denies any chest pain or shortness of breath. No abdominal pain. No emesis or diarrhea no fevers/chills. No lateralizing signs/symptoms. Inpatient Certification: I certify that the inpatient services were ordered in accordance with Medicare regulations governing the order. This includes certification that hospital inpatient services are reasonable and necessary and in the case of services not specified as inpatient-only under 42 CFR 419.22(n), that they are appropriately provided as inpatient services in accordance to with the 2-midnight benchmark under 43 CFR 412.3(e) Estimated Total Length of Stay (Days): 3 Plans for Post Hospital Care: Not yet determined Review of Systems All other systems reviewed negative except as stated in HPI [facility] - History History Provided By: Patient - Medical History Medical History: Medical History (Last Reviewed 06/03/18 @ 17:09 by AQUILINO Echeverria) Anemia CAD (coronary artery disease) CHF (congestive heart failure) COPD (chronic obstructive pulmonary disease) Diabetes ESRD (end stage renal disease) on dialysis Hyperkalemia Hypoxia - Surgical History Surgical History: Surgical History (Last Reviewed 06/03/18 @ 17:09 by AQUILINO Echeverria) H/O: History of tonsillectomy Hx of appendectomy Hx of heart artery stent - Family History Family History: Family History (Last Updated 06/03/18 @ 16:29 by Kamini Villarreal) Other No pertinent family history - Tobacco History Second Hand Smoke Exposure: No Tobacco Use In Past 30 Days: No Smoking Status: Former smoker Tobacco Type: Cigarettes - Alcohol History How Often Do You Have a Drink Containing Alcohol: Never - Substance Use History Substance History: No History of Abuse - Travel History Recent Travel in the [place] Within the Last 8 Weeks: No Recent Travel Out of the Country Within the Last 8 Weeks: No - Immunization History Tetanus Immunization: <5 Years Hx Influenza Vaccine This Season: Yes Medications and Allergies Active Medications: Active Medications Aspirin (Ecotrin) 81 mg PO DAILY YAMILET Atorvastatin Calcium (Lipitor) 40 mg PO HS YAMILET Budesonide/Formoterol Fumarate (Symbicort 160/4.5 Mcg Inh) 2 puff INH BID YAMILET Carvedilol (Coreg) 6.25 mg PO BID YAMILET Chlorhexidine Gluconate (Chlorhexidine 2% Cloth) 3 pack TOPICAL DAILY@0400 YAMILET Stop: 06/09/18 03:59 Last Admin: 06/04/18 03:03 Dose: 3 pack Chlorhexidine Gluconate (Chlorhexidine 2% Cloth) 3 pack TOPICAL DAILY@0400 PRN PRN Reason: Extra cloth needed Stop: 06/09/18 03:59 Clonidine HCl (Clonidine (Nicu) 20 Mcg/Ml Liq) 100 mcg PO TID PRN PRN Reason: Respiratory Distress Doxazosin Mesylate (Cardura) 2 mg PO DAILY YAMILET Furosemide (Lasix) 40 mg PO DAILY YAMILET Hydralazine HCl (Apresoline) 50 mg PO TID YAMILET Insulin Human Regular 100 unit (/ Sodium Chloride) 100 mls @ 8 mls/hr IV.CONT TITRATE PRN; Protocol PRN Reason: See protocol Last Titration: 06/04/18 02:45 Dose: 11 units/hr, 11 mls/hr Dextrose/Sodium Chloride (D5w/Normal Saline Inj) 1,000 mls @ 100 mls/hr IV.CONT .Q10H YAMILET Last Admin: 06/04/18 02:55 Dose: 100 mls/hr Sodium Chloride (Ns Inj) 1,000 mls @ 100 mls/hr IV.CONT .Q10H YAMILET Last Infusion: 06/04/18 03:01 Dose: 0 mls/hr Potassium Chloride (Kcl 40 Meq Premix Inj) 40 meq in 100 mls @ 100 mls/hr IV.SIG Q1H PRN PRN Reason: for Initial K+ ONLY < 3.5 Potassium Chloride (Kcl 40 Meq Premix Inj) 40 meq in 100 mls @ 50 mls/hr IV.SIG Q2H PRN PRN Reason: for Subsequent K+ < 3.5 Potassium Chloride (Kcl 20 Meq Premix Inj) 20 meq in 100 mls @ 100 mls/hr IV.SIG Q1H PRN PRN Reason: for K+ 3.5 to 4.4 Potassium Chloride (Kcl 20 Meq Premix Inj) 20 meq in 100 mls @ 100 mls/hr IV.SIG Q1H PRN PRN Reason: for K+ 4.5 to 5 Potassium Chloride (Kcl 20 Meq Premix Inj) 20 meq in 100 mls @ 50 mls/hr IV.SIG Q2H PRN PRN Reason: for Initial K+ ONLY < 3.5 Potassium Chloride (Kcl 20 Meq Premix Inj) 20 meq in 100 mls @ 50 mls/hr IV.SIG Q2H PRN PRN Reason: for Subsequent K+ < 3.5 Potassium Chloride (Kcl 20 Meq Premix Inj) 20 meq in 100 mls @ 50 mls/hr IV.SIG Q2H PRN PRN Reason: for K+ 3.5 to 4.4 Sodium Phosphate 15 mmol/ (Sodium Chloride) 105 mls @ 25 mls/hr IV.SIG UNSCH PRN PRN Reason: for Phosphate Level < 1.0 Potassium Chloride (Kcl 20 Meq Premix Inj) 20 meq in 100 mls @ 50 mls/hr IV.SIG Q2H PRN PRN Reason: for K+ 4.5 to 5 Ceftriaxone Sodium 1,000 mg/ (Sodium Chloride) 100 mls @ 200 mls/hr IV.SIG Q24H YAMILET Isosorbide Mononitrate (Imdur) 60 mg PO DAILY YAMILET Non-Formulary Medication (Nifedipine [Nifedipine]) 30 mg PO BID YAMILET Sodium Bicarbonate (Sodium Bicarbonate 8.4% Inj) 50 meq IV.PUSH UNSCH PRN PRN Reason: for pH 6.9 to 7.0 Sodium Bicarbonate (Sodium Bicarbonate 8.4% Inj) 100 meq IV.PUSH UNSCH PRN PRN Reason: for pH less than 6.9 Sodium Chloride (Ns Flush) 2 ml IV.FLUSH PRN PRN PRN Reason: FLUSH AFTER USING IV ACCESS Last Admin: 06/03/18 16:47 Dose: 2 ml Allergies Allergy/AdvReac Type Severity Reaction Status Date / Time propoxyphene Allergy Intermediate RASH Verified 06/03/18 16:05 Home Medications Medication Instructions Recorded Confirmed Type albuterol sulfate [Ventolin HFA] 2 puff INHALATION Q6H PRN 06/03/18 06/03/18 History aspirin 81 mg PO DAILY 06/03/18 06/03/18 History atorvastatin 40 mg PO HS 06/03/18 06/03/18 History budesonide-formoterol [Symbicort] 2 puff INHALATION BID 06/03/18 06/03/18 History carvedilol 6.25 mg PO BID 06/03/18 06/03/18 History clonidine HCl [Catapres] 0.1 mg PO TID PRN 06/03/18 06/03/18 History doxazosin 2 mg PO DAILY 06/03/18 06/03/18 History ferrous sulfate 325 mg PO DAILY 06/03/18 06/03/18 History furosemide 40 mg PO DAILY 06/03/18 06/03/18 History hydralazine 50 mg PO TID 06/03/18 06/03/18 History insulin detemir U-100 [Levemir 20 unit SUB-Q BID 06/03/18 06/03/18 History U-100 Insulin] isosorbide mononitrate 60 mg PO DAILY 06/03/18 06/03/18 History nifedipine 30 mg PO BID 06/03/18 06/03/18 History Exam Vital signs: Vital Signs 06/03/18 16:00 06/03/18 16:10 06/03/18 16:40 Temperature 97.8 F 97.8 F Pulse Rate 70 72 76 Respiratory Rate 17 17 Blood Pressure 148/63 H 148/65 H Pulse Oximetry 99 97 06/03/18 17:37 06/03/18 18:23 06/03/18 19:15 Temperature 97.9 F 97.8 F Pulse Rate 77 78 Respiratory Rate 18 18 18 Blood Pressure 140/67 165/73 H 132/63 Pulse Oximetry 98 97 96 06/03/18 20:41 06/03/18 23:00 06/04/18 00:05 Temperature Pulse Rate 85 80 Respiratory Rate 16 16 Blood Pressure 158/72 H Pulse Oximetry 06/04/18 00:19 06/04/18 02:05 Temperature 98.0 F Pulse Rate 80 58 L Respiratory Rate 15 Blood Pressure 169/72 H Pulse Oximetry 95 Intake & Output 06/03/18 06/03/18 06/04/18 06:59 18:59 06:59 Intake Total 500 / 500 Balance 500 / 500 Weight 79.379 kg 79.7 kg Intake: IV 500 / 500 NS Inj 1,000 ML @ 100 mls/hr IV 400 / 400 .CONT .Q10H YAMILET Rx#:[id number] Maxipime Inj 1,000 MG In NS Inj 100 / 100 100 ML @ 200 mls/hr IV.SIG ONCE ONE Rx#:[id number] Narrative: Gen.: No acute distress Head: Normocephalic. Atraumatic. EENT: Pupils equal round and reactive to light. Nose without drainage. Airway intact. Throat without injection. Cardiovascular: Regular rate and rhythm. No murmurs, rubs or gallops. Respiratory: Lungs clear to auscultation bilaterally. No wheezes or rhonchi. Abdomen: Soft, nontender, nondistended. No peritoneal signs. Musculoskeletal: No gross deformities. No edema. Skin: No obvious rashes or erythema. Neuro: Sensory and motor grossly intact. Cranial nerves II through XII grossly intact. Psych: Appropriate mood and affect Results - Labs CBC & Chem 7: 06/03/18 16:20 06/04/18 03:06 Labs: Laboratory Results - last 24 hr 06/03/18 06/03/18 06/03/18 16:19 16:20 16:20 WBC 14.9 H RBC 3.96 L Hgb 11.9 Hct 38.3 MCV 96.7 MCH 29.9 MCHC 31.0 L RDW 18.1 H Plt Count 205 MPV 9.3 Neut % (Auto) 90.0 H Lymph % (Auto) 4.2 L [place] % (Auto) 5.5 Eos % (Auto) 0.0 Baso % (Auto) 0.3 Neut # (Auto) 13.5 H Lymph # (Auto) 0.6 L [place] # (Auto) 0.8 Eos # (Auto) 0.0 Baso # (Auto) 0.0 WBC Differential . Differential Comment Auto diff final Puncture Site Patient Temperature VBG pH VBG pCO2 VBG pO2 VBG HCO3 VBG O2 Saturation VBG O2 Content VBG Base Excess VBG Carboxyhemoglobin VBG Methemoglobin Hemoglobin Inspired O2 Critical Value Sodium 131 L Potassium 5.6 H Chloride 99 Carbon Dioxide 13.7 L Anion Gap 18 H BUN 33 H Creatinine 1.76 H Estimated GFR 29 L POC Glucose Greater than 600 H* Random Glucose 642 H* Calcium 8.5 Beta-Hydroxybutyric Acd Urine Color Urine Clarity Urine pH Ur Specific [place] Urine Protein Urine Glucose (UA) Urine Ketones Urine Occult Blood Urine Nitrate Urine Bilirubin Urine Urobilinogen Ur Leukocyte Esterase Urine RBC Urine WBC Urine WBC Clumps Ur Squamous Epith Cells Urine Bacteria Micro UA Comment Urine Culture Comments Nasal Screen MRSA (PCR) 06/03/18 06/03/18 06/03/18 17:49 18:00 18:02 WBC RBC Hgb Hct MCV MCH MCHC RDW Plt Count MPV Neut % (Auto) Lymph % (Auto) [place] % (Auto) Eos % (Auto) Baso % (Auto) Neut # (Auto) Lymph # (Auto) [place] # (Auto) Eos # (Auto) Baso # (Auto) WBC Differential Differential Comment Puncture Site Not Reportable Patient Temperature 98.6 VBG pH 7.30 L VBG pCO2 35 L VBG pO2 38 VBG HCO3 17 L VBG O2 Saturation 58 L VBG O2 Content 9.4 VBG Base Excess -8.3 L VBG Carboxyhemoglobin 1.7 VBG Methemoglobin 0.9 Hemoglobin 11.4 L Inspired O2 21 Critical Value No Sodium Potassium Chloride Carbon Dioxide Anion Gap BUN Creatinine Estimated GFR POC Glucose Greater than 600 H* Random Glucose Calcium Beta-Hydroxybutyric Acd 3.65 H Urine Color Urine Clarity Urine pH Ur Specific [place] Urine Protein Urine Glucose (UA) Urine Ketones Urine Occult Blood Urine Nitrate Urine Bilirubin Urine Urobilinogen Ur Leukocyte Esterase Urine RBC Urine WBC Urine WBC Clumps Ur Squamous Epith Cells Urine Bacteria Micro UA Comment Urine Culture Comments Nasal Screen MRSA (PCR) 06/03/18 06/03/18 06/03/18 19:14 20:02 20:26 WBC RBC Hgb Hct MCV MCH MCHC RDW Plt Count MPV Neut % (Auto) Lymph % (Auto) [place] % (Auto) Eos % (Auto) Baso % (Auto) Neut # (Auto) Lymph # (Auto) [place] # (Auto) Eos # (Auto) Baso # (Auto) WBC Differential Differential Comment Puncture Site Patient Temperature VBG pH VBG pCO2 VBG pO2 VBG HCO3 VBG O2 Saturation VBG O2 Content VBG Base Excess VBG Carboxyhemoglobin VBG Methemoglobin Hemoglobin Inspired O2 Critical Value Sodium Potassium Chloride Carbon Dioxide Anion Gap BUN Creatinine Estimated GFR POC Glucose 564 H* 535 H* Random Glucose Calcium Beta-Hydroxybutyric Acd Urine Color Red Urine Clarity Turbid H Urine pH 5.0 Ur Specific [place] 1.018 Urine Protein 100 H Urine Glucose (UA) 500 or greater Urine Ketones Trace H Urine Occult Blood Large H Urine Nitrate Negative Urine Bilirubin Negative Urine Urobilinogen Less than 2 Ur Leukocyte Esterase Small H Urine RBC Urine WBC Urine WBC Clumps Few H Ur Squamous Epith Cells 5 Urine Bacteria Moderate H Micro UA Comment Cath-culture ind Urine Culture Comments Cath-cult indicated Nasal Screen MRSA (PCR) 06/03/18 06/03/18 06/03/18 21:32 22:40 23:50 WBC RBC Hgb Hct MCV MCH MCHC RDW Plt Count MPV Neut % (Auto) Lymph % (Auto) [place] % (Auto) Eos % (Auto) Baso % (Auto) Neut # (Auto) Lymph # (Auto) [place] # (Auto) Eos # (Auto) Baso # (Auto) WBC Differential Differential Comment Puncture Site Patient Temperature VBG pH VBG pCO2 VBG pO2 VBG HCO3 VBG O2 Saturation VBG O2 Content VBG Base Excess VBG Carboxyhemoglobin VBG Methemoglobin Hemoglobin Inspired O2 Critical Value Sodium Potassium Chloride Carbon Dioxide Anion Gap BUN Creatinine Estimated GFR POC Glucose 472 H* 428 H 407 H Random Glucose Calcium Beta-Hydroxybutyric Acd Urine Color Urine Clarity Urine pH Ur Specific [place] Urine Protein Urine Glucose (UA) Urine Ketones Urine Occult Blood Urine Nitrate Urine Bilirubin Urine Urobilinogen Ur Leukocyte Esterase Urine RBC Urine WBC Urine WBC Clumps Ur Squamous Epith Cells Urine Bacteria Micro UA Comment Urine Culture Comments Nasal Screen MRSA (PCR) 06/03/18 06/04/18 06/04/18 23:50 00:41 01:41 WBC RBC Hgb Hct MCV MCH MCHC RDW Plt Count MPV Neut % (Auto) Lymph % (Auto) [place] % (Auto) Eos % (Auto) Baso % (Auto) Neut # (Auto) Lymph # (Auto) [place] # (Auto) Eos # (Auto) Baso # (Auto) WBC Differential Differential Comment Puncture Site Patient Temperature VBG pH VBG pCO2 VBG pO2 VBG HCO3 VBG O2 Saturation VBG O2 Content VBG Base Excess VBG Carboxyhemoglobin VBG Methemoglobin Hemoglobin Inspired O2 Critical Value Sodium Potassium Chloride Carbon Dioxide Anion Gap BUN Creatinine Estimated GFR POC Glucose 365 H 298 H Random Glucose Calcium Beta-Hydroxybutyric Acd Urine Color Urine Clarity Urine pH Ur Specific [place] Urine Protein Urine Glucose (UA) Urine Ketones Urine Occult Blood Urine Nitrate Urine Bilirubin Urine Urobilinogen Ur Leukocyte Esterase Urine RBC Urine WBC Urine WBC Clumps Ur Squamous Epith Cells Urine Bacteria Micro UA Comment Urine Culture Comments Nasal Screen MRSA (PCR) Mrsa detected 06/04/18 06/04/18 02:43 03:41 WBC RBC Hgb Hct MCV MCH MCHC RDW Plt Count MPV Neut % (Auto) Lymph % (Auto) [place] % (Auto) Eos % (Auto) Baso % (Auto) Neut # (Auto) Lymph # (Auto) [place] # (Auto) Eos # (Auto) Baso # (Auto) WBC Differential Differential Comment Puncture Site Patient Temperature VBG pH VBG pCO2 VBG pO2 VBG HCO3 VBG O2 Saturation VBG O2 Content VBG Base Excess VBG Carboxyhemoglobin VBG Methemoglobin Hemoglobin Inspired O2 Critical Value Sodium Potassium Chloride Carbon Dioxide Anion Gap BUN Creatinine Estimated GFR POC Glucose 228 H 190 H Random Glucose Calcium Beta-Hydroxybutyric Acd Urine Color Urine Clarity Urine pH Ur Specific [place] Urine Protein Urine Glucose (UA) Urine Ketones Urine Occult Blood Urine Nitrate Urine Bilirubin Urine Urobilinogen Ur Leukocyte Esterase Urine RBC Urine WBC Urine WBC Clumps Ur Squamous Epith Cells Urine Bacteria Micro UA Comment Urine Culture Comments Nasal Screen MRSA (PCR) - Imaging Impressions Abdomen/Pelvis CT 06/03/18 16:41 CONCLUSION: 1. Extensive air throughout the urinary bladder suggestive of a gas-forming organism. Clinical correlation is recommended. 2. Severe anasarca. 3. Moderate-sized left pleural effusion and small right pleural effusion. 4. Compressive atelectasis and/or infiltrate within left lung base. 5. Minimal ascites. 6. Table partially calcified left adrenal mass measuring 4 cm. Caprini VTE Risk Assessment Caprini VTE Risk Assessment: Moderate/High Risk (score >= 2) Caprini Risk Assessment Model: Point Value = 1 Point Value = 2 Point Value = 3 Point Value = 5 Age 41-60 Minor surgery BMI > 25 kg/m2 Swollen legs Varicose veins or History of unexplained or recurrent spontaneous Oral contraceptives or hormone replacement Sepsis (< 1 month) Serious lung disease, including pneumonia (< 1 month) Abnormal pulmonary function Acute myocardial infarction Congestive heart failure (< 1 month) History of inflammatory bowel disease Medical patient at bed rest Age 61-74 Arthroscopic surgery Major open surgery (> 45 min) Laparoscopic surgery (> 45 min) Malignancy Confined to bed (> 72 hours) Immobilizing plaster cast Central venous access Age >= 75 History of VTE Family history of VTE Factor V Leiden Prothrombin [id number] Lupus anticoagulant Anticardiolipin antibodies Elevated serum homocysteine Heparin-induced thrombocytopenia Other congenital or acquired thrombophilia Stroke (< 1 month) Elective arthroplasty Hip, pelvis, or leg fracture Acute spinal cord injury (< 1 month) Prophylaxis Regimen: Total Risk Factor Score Risk Level Prophylaxis Regimen 0-1 Low Early ambulation 2 Moderate Order ONE of the following: *Sequential Compression Device (SCD) *Heparin 5000 units SQ BID 3-4 Higher Order ONE of the following medications: *Heparin 5000 units SQ TID *Enoxaparin/Lovenox 40 mg SQ daily (WT < 150 kg, CrCl > 30 mL/min) *Enoxaparin/Lovenox 30 mg SQ daily (WT < 150 kg, CrCl > 10-29 mL/min) *Enoxaparin/Lovenox 30 mg SQ BID (WT < 150 kg, CrCl > 30 mL/min) AND/OR *Sequential Compression Device (SCD) 5 or more Highest Order ONE of the following medications: *Heparin 5000 units SQ TID (Preferred with Epidurals) *Enoxaparin/Lovenox 40 mg SQ daily (WT < 150 kg, CrCl > 30 mL/min) *Enoxaparin/Lovenox 30 mg SQ daily (WT < 150 kg, CrCl > 10-29 mL/min) *Enoxaparin/Lovenox 30 mg SQ BID (WT < 150 kg, CrCl > 30 mL/min) AND *Sequential Compression Device (SCD) Assessment and Plan - Plan Assessment/plan: 1. DKA Patient with blood sugar of 642, elevated beta hydroxybutyrate, and anion gap of 18 VBG 7.30/35/58/17 Patient started on insulin drip with IV fluid hydration per protocol and admitted to the ICU for close monitoring Every 6 hours BMP Transition to subcutaneous insulin once anion gap closes and blood glucose controlled A1c pending 2. UTI CT of the abdomen/pelvis shows extensive air throughout the urinary bladder suggestive of a gas forming organism UA consistent with UTI Cefepime Urine culture pending 3. End-stage renal disease on dialysis Monitor fluids closely Nephrology consulted, appreciate assistance 4. CHF/CAD Continue home medications 5. COPD/? PNA Duo nebs as needed CT of the abdomen/pelvis shows possible infiltrate within left lung base Antibiotics as above FEN N.p.o. NS at 100 cc/hour Electrolytes: Monitor every 6 hours and replete as needed Heparin
[2018-06-04] MEDS ORDERED: Chlorhexidine Gluconate 2% 1 Pack (2 Cloths) TOPICAL PRN (04:00)
[2018-06-04] MEDS: Insulin Regular (For Infusion) 100 UNIT in Sodium Chlor 0.9% Inj 99 ML IV.CONT PRN (04:46)
[2018-06-04] MEDS: Furosemide 40 MG Tablet PO SCH (09:18)
[2018-06-04] MEDS: hydrALAZINE 50 MG Tablet PO SCH ×3 (09:18→18:04)
[2018-06-04] MEDS: Carvedilol 6.25 MG Tablet PO SCH ×2 (09:19→21:13)
[2018-06-04] MEDS: Isosorbide Mononitrate 60 MG ER 24HR Tablet (Imdur) PO SCH (09:19)
[2018-06-04] MEDS: Budesonide-Formoterol 160/4.5 MCG 6 GM Inhaler INH SCH ×2 (09:20→21:16)
[2018-06-04] MEDS ORDERED: Albumin Human 25% Inj 100 ML IV.SIG PRN (11:32)
[2018-06-04] MEDS ORDERED: Gelatin 12 MM/7 MM Topical Foam TOPICAL PRN (11:32)
[2018-06-04] MEDS ORDERED: Heparin 10,000 UNITS/10 ML Vial (for IV use) OTHER PRN (11:32)
[2018-06-04] MEDS ORDERED: Sod Chloride 0.9% Inj 1,000 ML IV.CONT PRN (11:32)
[2018-06-04] MEDS ORDERED: Sod Chloride 0.9% Inj 1,000 ML OTHER PRN ×2 (11:32)
[2018-06-04] MEDS ORDERED: Heparin 10,000 UNITS/10 ML Vial (for IV use) IV.FLUSH PRN (11:32)
[2018-06-04 12:12] LABS: Alanine Aminotransferase 29 U/L (10-53); Albumin 1.9 g/dL (3.4-5.0); Alkaline Phosphatase 153 U/L (45-117); Anion Gap 12 meq/L (5-15); Aspartate Aminotransferase 20 U/L (15-37); Blood Urea Nitrogen 40 mg/dL (7-18); Calcium 8.2 mg/dL (8.5-10.1); Carbon Dioxide 21.3 meq/L (21.0-32.0); Chloride 105 meq/L (98-107); Glomerular Filtration Rate 28 mL/min (>89); Glucose,Random 146 mg/dL (74-106); Potassium 4.1 meq/L (3.5-5.1); Sodium 138 meq/L (136-145); Total Protein 4.7 g/dL (6.4-8.2)
[2018-06-04] MEDS ORDERED: Dextrose 50% in Water 50 ML Vial IV.PUSH PRN ×2 (12:24→18:33)
--- NOTE | 2018-06-04 12:25 | MB ---
cc: Wally Vila MD DATE: 06/04/2018 REASON FOR CONSULTATION: End-stage renal disease management. HISTORY OF PRESENT ILLNESS: This is a 67-year-old female with history of CHF, COPD and end-stage renal disease, on hemodialysis Mondays, Wednesdays and Fridays. She follows up with Dr. Toro as an outpatient. She also has a history of diabetes as well as CAD. The patient presented with complaints of malaise and fatigue to the emergency room yesterday. She was found to have findings of DKA with a glucose level of 642. Apparently, the patient had been taking her insulin at home; however, she is a relatively poor historian and her compliance has been questionable. The patient was admitted to the ICU and started on IV fluids as well as an insulin drip. Her glucose levels have improved to the 150s. She reports she had a full hemodialysis session done just yesterday. At this time, she is resting in bed comfortably. She continues on insulin and she is in the ICU being monitored for DKA. She has no other acute complaints at this point. REVIEW OF SYSTEMS: The patient denies any fevers or chills. No nausea, no vomiting. Has had general malaise and poor p.o. intake. No diarrhea, no constipation, no dysuria. Otherwise, review of systems is negative. PAST MEDICAL HISTORY: Includes, ESRD on dialysis Wednesday, Wednesday and Wednesday, followed up with Dr. Toro as an outpatient; CAD, CHF, COPD, diabetes, hyperkalemia and hypoxia. PAST SURGICAL HISTORY: Includes , tonsillectomy, appendectomy, coronary stent, current right IJ tunneled catheter with plans for upper arm fistula. FAMILY HISTORY: Noncontributory. SOCIAL HISTORY: Former tobacco smoker. No current tobacco, alcohol or drug use. ALLERGIES: INCLUDE PROPOXYPHENE. PHYSICAL EXAMINATION: VITAL SIGNS: At time of evaluation, temperature 97.6, pulse 57, blood pressure 163/73. GENERAL: Awake, alert, in no apparent distress. NECK: Soft, supple. CARDIAC: Regular rate and rhythm. PULMONARY: Lungs clear to auscultation. Decreased breath sounds at bases. ABDOMEN: Soft, nontender and nondistended. EXTREMITIES: 3+ lower extremity edema. LABORATORY FINDINGS: White count 14.9, hemoglobin 11.9, hematocrit 38.3 with platelet count of 205. Sodium 137, potassium 3.8, chloride 105, bicarbonate 18.7, BUN 38, creatinine 1.9. Initial glucose level in the 600s. Most recent glucose level 156. ASSESSMENT AND PLAN: 1. End-stage renal disease on hemodialysis. The patient received dialysis yesterday. We will continue with Wednesday, Wednesday, Wednesday dialysis while here inpatient. The patient follows up with Dr. Toro as an outpatient. Of note, the patient has been receiving IV fluids as part of diabetic ketoacidosis protocol. She has significant lower extremity edema with 3+ bilateral pitting edema as well as has had fluid issues with 5 liters of fluid removed at dialysis yesterday. Would recommend to discontinue IV fluids as possible under DKA protocol. Continue followup with primary team. 2. Diabetic ketoacidosis. The patient had an initial glucose in the 600s. This is improved to a level of the 150s now. Continue with insulin as needed and recommend to discontinue IV fluids when possible. 3. Urinary tract infection. The patient with findings of possible UTI on urinalysis and has been started on cefepime. Continue to monitor. 4. Congestive heart failure and coronary artery disease. Limit fluid intake as possible. We will do ultrafiltration with dialysis as needed. 5. Questionable pneumonia. The patient had a CT scan with a questionable left lower lobe infiltrate. She is on cefepime. Continue to monitor. MD CANDELARIA Arguelles/CONNIE , 11:49 AM , 12:24 PM
[2018-06-04 13:03] LABS: Magnesium 1.8 mg/dL (1.5-2.5); Phosphorus 4.5 mg/dL (2.5-4.9)
[2018-06-04 13:57] LABS: Hemoglobin A1c 10.8 % (4.3-6.0)
[2018-06-04 14:50] LABS: Hematocrit 32.8 % (35.0-46.0); Hemoglobin 10.8 gm/dL (11.6-15.3); Mean Corpuscular Hemoglobin 30.2 pg (27.0-34.0); Mean Corpuscular Volume 91.5 fL (80.0-100.0); Mean Platelet Volume 8.7 fL (7.0-11.0); Platelet Count 186 th/mm3 (150-450); Red Blood Count 3.59 mil/mm3 (4.00-5.30); Red Cell Distribution Width 18.1 % (11.6-17.2); White Blood Count 7.8 th/mm3 (4.0-11.0)
[2018-06-04] MEDS: NIFEDIPINE 30 MG PO SCH ×2 (15:10→21:16)
[2018-06-04 15:36] LABS: Alanine Aminotransferase 28 U/L (10-53); Albumin 1.8 g/dL (3.4-5.0); Anion Gap 11 meq/L (5-15); Aspartate Aminotransferase 15 U/L (15-37); Blood Urea Nitrogen 41 mg/dL (7-18); Calcium 8.2 mg/dL (8.5-10.1); Carbon Dioxide 20.9 meq/L (21.0-32.0); Chloride 104 meq/L (98-107); Glomerular Filtration Rate 26 mL/min (>89); Glucose,Random 238 mg/dL (74-106); Magnesium 1.6 mg/dL (1.5-2.5); Phosphorus 4.8 mg/dL (2.5-4.9); Potassium 4.1 meq/L (3.5-5.1); Sodium 136 meq/L (136-145)
[2018-06-04 15:39] LABS: Alkaline Phosphatase 148 U/L (45-117); Total Protein 4.6 g/dL (6.4-8.2)
--- NOTE | 2018-06-04 19:17 | P.PN ---
Subjective Interval history: states feeling better states she is on HD- 3x a weel on Levemer 30 units bid and sttes blood sugar readings good at home denies any fever, pain, diarrhea, still making urine just started not feeling good Physical Exam Vital signs: Vital Signs 06/03/18 19:15 06/03/18 20:41 06/03/18 23:00 Temperature Pulse Rate 85 Respiratory Rate 18 16 16 Blood Pressure 132/63 158/72 H Pulse Oximetry 96 06/03/18 23:38 06/03/18 23:41 06/04/18 00:00 Temperature Pulse Rate 67 67 61 Respiratory Rate 20 19 16 Blood Pressure 169/72 H Pulse Oximetry 97 06/04/18 00:05 06/04/18 00:19 06/04/18 01:00 Temperature 98.0 F Pulse Rate 80 80 80 Respiratory Rate 15 10 L Blood Pressure 169/72 H Pulse Oximetry 95 95 06/04/18 02:00 06/04/18 02:05 06/04/18 03:00 Temperature Pulse Rate 58 L 58 L 57 L Respiratory Rate 15 15 Blood Pressure Pulse Oximetry 97 97 06/04/18 03:42 06/04/18 04:00 06/04/18 06:00 Temperature 97.6 F Pulse Rate 58 L 57 L 78 Respiratory Rate 15 15 Blood Pressure 175/76 H 163/73 H Pulse Oximetry 97 97 06/04/18 08:00 06/04/18 10:00 06/04/18 12:00 Temperature 97.4 F L 97.7 F Pulse Rate 80 61 60 Respiratory Rate 8 L 13 Blood Pressure 183/81 H 129/61 Pulse Oximetry 97 95 06/04/18 14:00 06/04/18 16:00 06/04/18 18:00 Temperature 97.9 F Pulse Rate 60 62 61 Respiratory Rate 12 Blood Pressure 128/60 Pulse Oximetry 96 Intake & Output 06/04/18 06/04/18 06/05/18 06:59 18:59 06:59 Intake Total 600 / 600 360 / 360 Output Total 100 / 100 150 / 150 Balance 500 / 500 210 / 210 Weight 81.2 kg Intake: IV 600 / 600 NovoLIN R (IV Infusion) 100 100 / 100 UNIT In NS Inj 99 ML @ 8 UNITS/ HR 8 mls/hr IV.CONT TITRATE PRN Rx#:[id number] NS Inj 1,000 ML @ 100 mls/hr IV 400 / 400 .CONT .Q10H [facility] Rx#:[id number] Maxipime Inj 1,000 MG In NS Inj 100 / 100 100 ML @ 200 mls/hr IV.SIG ONCE ONE Rx#:[id number] Oral 0 / 0 360 / 360 Output: Urine Amount (Catheter) 100 / 100 150 / 150 Indwelling Urethral Catheter 100 / 100 150 / 150 Other: # Bowel Movements 0 0 - Constitutional no acute distress - Routine HEENT Exam Head: Present: normocephalic Eye: Present: PERRL ENT: Present: mucous membranes dry - Routine Neck Exam Present: supple - Routine Respiratory Exam Present: decreased breath sounds, rhonchi - Routine Cardiovascular Exam Present: RRR - Routine Abdominal Exam Present: soft, normoactive bowel sounds - Routine Extremities Exam Present: edema (+ pitting edema) - Routine Skin Exam Present: intact - Routine Neurological Exam Present: alert, oriented X3 - Detailed Neurological Exam: Coma Scale Eye Opening: Spontaneous Motor Response: Obey commands - Routine Psychiatric Exam Present: normal affect - Urinary Catheter Management Indwelling Urethral Catheter Cath placed during this visit: yes Urethral indwelling: Yes Reason for continuing: Acute urinary retention Insertion date: 06/03/18 Insertion time: 23:17 Results - Labs CBC & Chem 7: 06/04/18 14:02 06/04/18 14:02 Laboratory Results - last 24 hr 06/03/18 06/03/18 06/03/18 16:20 18:00 19:14 WBC RBC Hgb Hct MCV MCH MCHC RDW Plt Count MPV Sodium Potassium Chloride Carbon Dioxide Anion Gap BUN Creatinine Estimated GFR POC Glucose 564 H* Random Glucose Hemoglobin A1c 10.8 H Calcium Phosphorus Magnesium Total Bilirubin AST ALT Alkaline Phosphatase Total Protein Albumin Beta-Hydroxybutyric Acd 3.65 H Urine Color Urine Clarity Urine pH Ur Specific [place] Urine Protein Urine Glucose (UA) Urine Ketones Urine Occult Blood Urine Nitrate Urine Bilirubin Urine Urobilinogen Ur Leukocyte Esterase Urine RBC Urine WBC Urine WBC Clumps Ur Squamous Epith Cells Urine Bacteria Micro UA Comment Urine Culture Comments Nasal Screen MRSA (PCR) 06/03/18 06/03/18 06/03/18 20:02 20:26 21:32 WBC RBC Hgb Hct MCV MCH MCHC RDW Plt Count MPV Sodium Potassium Chloride Carbon Dioxide Anion Gap BUN Creatinine Estimated GFR POC Glucose 535 H* 472 H* Random Glucose Hemoglobin A1c Calcium Phosphorus Magnesium Total Bilirubin AST ALT Alkaline Phosphatase Total Protein Albumin Beta-Hydroxybutyric Acd Urine Color Red Urine Clarity Turbid H Urine pH 5.0 Ur Specific [place] 1.018 Urine Protein 100 H Urine Glucose (UA) 500 or greater Urine Ketones Trace H Urine Occult Blood Large H Urine Nitrate Negative Urine Bilirubin Negative Urine Urobilinogen Less than 2 Ur Leukocyte Esterase Small H Urine RBC Urine WBC Urine WBC Clumps Few H Ur Squamous Epith Cells 5 Urine Bacteria Moderate H Micro UA Comment Cath-culture ind Urine Culture Comments Cath-cult indicated Nasal Screen MRSA (PCR) 06/03/18 06/03/18 06/03/18 22:40 23:50 23:50 WBC RBC Hgb Hct MCV MCH MCHC RDW Plt Count MPV Sodium Potassium Chloride Carbon Dioxide Anion Gap BUN Creatinine Estimated GFR POC Glucose 428 H 407 H Random Glucose Hemoglobin A1c Calcium Phosphorus Magnesium Total Bilirubin AST ALT Alkaline Phosphatase Total Protein Albumin Beta-Hydroxybutyric Acd Urine Color Urine Clarity Urine pH Ur Specific [place] Urine Protein Urine Glucose (UA) Urine Ketones Urine Occult Blood Urine Nitrate Urine Bilirubin Urine Urobilinogen Ur Leukocyte Esterase Urine RBC Urine WBC Urine WBC Clumps Ur Squamous Epith Cells Urine Bacteria Micro UA Comment Urine Culture Comments Nasal Screen MRSA (PCR) Mrsa detected 06/04/18 06/04/18 06/04/18 00:41 01:41 02:43 WBC RBC Hgb Hct MCV MCH MCHC RDW Plt Count MPV Sodium Potassium Chloride Carbon Dioxide Anion Gap BUN Creatinine Estimated GFR POC Glucose 365 H 298 H 228 H Random Glucose Hemoglobin A1c Calcium Phosphorus Magnesium Total Bilirubin AST ALT Alkaline Phosphatase Total Protein Albumin Beta-Hydroxybutyric Acd Urine Color Urine Clarity Urine pH Ur Specific [place] Urine Protein Urine Glucose (UA) Urine Ketones Urine Occult Blood Urine Nitrate Urine Bilirubin Urine Urobilinogen Ur Leukocyte Esterase Urine RBC Urine WBC Urine WBC Clumps Ur Squamous Epith Cells Urine Bacteria Micro UA Comment Urine Culture Comments Nasal Screen MRSA (PCR) 06/04/18 06/04/18 06/04/18 03:06 03:41 04:41 WBC RBC Hgb Hct MCV MCH MCHC RDW Plt Count MPV Sodium 137 Potassium 3.8 D Chloride 105 Carbon Dioxide 18.7 L Anion Gap 13 BUN 38 H Creatinine 1.94 H Estimated GFR 26 L POC Glucose 190 H 164 H Random Glucose 252 H D Hemoglobin A1c Calcium 8.3 L Phosphorus 4.1 Magnesium 1.7 Total Bilirubin AST ALT Alkaline Phosphatase Total Protein Albumin Beta-Hydroxybutyric Acd Urine Color Urine Clarity Urine pH Ur Specific [place] Urine Protein Urine Glucose (UA) Urine Ketones Urine Occult Blood Urine Nitrate Urine Bilirubin Urine Urobilinogen Ur Leukocyte Esterase Urine RBC Urine WBC Urine WBC Clumps Ur Squamous Epith Cells Urine Bacteria Micro UA Comment Urine Culture Comments Nasal Screen MRSA (PCR) 06/04/18 06/04/18 06/04/18 05:40 06:10 06:47 WBC RBC Hgb Hct MCV MCH MCHC RDW Plt Count MPV Sodium Potassium Chloride Carbon Dioxide Anion Gap BUN Creatinine Estimated GFR POC Glucose 126 H 124 H 105 Random Glucose Hemoglobin A1c Calcium Phosphorus Magnesium Total Bilirubin AST ALT Alkaline Phosphatase Total Protein Albumin Beta-Hydroxybutyric Acd Urine Color Urine Clarity Urine pH Ur Specific [place] Urine Protein Urine Glucose (UA) Urine Ketones Urine Occult Blood Urine Nitrate Urine Bilirubin Urine Urobilinogen Ur Leukocyte Esterase Urine RBC Urine WBC Urine WBC Clumps Ur Squamous Epith Cells Urine Bacteria Micro UA Comment Urine Culture Comments Nasal Screen MRSA (PCR) 06/04/18 06/04/18 06/04/18 07:18 08:00 08:23 WBC RBC Hgb Hct MCV MCH MCHC RDW Plt Count MPV Sodium Potassium Chloride Carbon Dioxide Anion Gap BUN Creatinine Estimated GFR POC Glucose 110 117 H 110 Random Glucose Hemoglobin A1c Calcium Phosphorus Magnesium Total Bilirubin AST ALT Alkaline Phosphatase Total Protein Albumin Beta-Hydroxybutyric Acd Urine Color Urine Clarity Urine pH Ur Specific [place] Urine Protein Urine Glucose (UA) Urine Ketones Urine Occult Blood Urine Nitrate Urine Bilirubin Urine Urobilinogen Ur Leukocyte Esterase Urine RBC Urine WBC Urine WBC Clumps Ur Squamous Epith Cells Urine Bacteria Micro UA Comment Urine Culture Comments Nasal Screen MRSA (PCR) 06/04/18 06/04/18 06/04/18 08:52 09:59 10:02 WBC RBC Hgb Hct MCV MCH MCHC RDW Plt Count MPV Sodium Potassium Chloride Carbon Dioxide Anion Gap BUN Creatinine Estimated GFR POC Glucose 135 H 11 L* 131 H Random Glucose Hemoglobin A1c Calcium Phosphorus Magnesium Total Bilirubin AST ALT Alkaline Phosphatase Total Protein Albumin Beta-Hydroxybutyric Acd Urine Color Urine Clarity Urine pH Ur Specific [place] Urine Protein Urine Glucose (UA) Urine Ketones Urine Occult Blood Urine Nitrate Urine Bilirubin Urine Urobilinogen Ur Leukocyte Esterase Urine RBC Urine WBC Urine WBC Clumps Ur Squamous Epith Cells Urine Bacteria Micro UA Comment Urine Culture Comments Nasal Screen MRSA (PCR) 0706/04/[id number] 06/04/18 10:36 10:56 10:56 WBC RBC Hgb Hct MCV MCH MCHC RDW Plt Count MPV Sodium Cancelled 138 Potassium Cancelled 4.1 Chloride Cancelled 105 Carbon Dioxide Cancelled 21.3 Anion Gap Cancelled 12 BUN Cancelled 40 H Creatinine Cancelled 1.83 H Estimated GFR Cancelled 28 L POC Glucose 148 H Random Glucose Cancelled 146 H D Hemoglobin A1c Calcium Cancelled 8.2 L Phosphorus 4.5 Magnesium 1.8 Total Bilirubin 0.2 AST 20 ALT 29 Alkaline Phosphatase 153 H Total Protein 4.7 L Albumin 1.9 L Beta-Hydroxybutyric Acd Urine Color Urine Clarity Urine pH Ur Specific [place] Urine Protein Urine Glucose (UA) Urine Ketones Urine Occult Blood Urine Nitrate Urine Bilirubin Urine Urobilinogen Ur Leukocyte Esterase Urine RBC Urine WBC Urine WBC Clumps Ur Squamous Epith Cells Urine Bacteria Micro UA Comment Urine Culture Comments Nasal Screen MRSA (PCR) 06/04/18 06/04/18 06/04/18 11:01 12:55 14:02 WBC 7.8 RBC 3.59 L Hgb 10.8 L Hct 32.8 L MCV 91.5 D MCH 30.2 MCHC 33.0 RDW 18.1 H Plt Count 186 MPV 8.7 Sodium Potassium Chloride Carbon Dioxide Anion Gap BUN Creatinine Estimated GFR POC Glucose 156 H 178 H Random Glucose Hemoglobin A1c Calcium Phosphorus Magnesium Total Bilirubin AST ALT Alkaline Phosphatase Total Protein Albumin Beta-Hydroxybutyric Acd Urine Color Urine Clarity Urine pH Ur Specific [place] Urine Protein Urine Glucose (UA) Urine Ketones Urine Occult Blood Urine Nitrate Urine Bilirubin Urine Urobilinogen Ur Leukocyte Esterase Urine RBC Urine WBC Urine WBC Clumps Ur Squamous Epith Cells Urine Bacteria Micro UA Comment Urine Culture Comments Nasal Screen MRSA (PCR) 06/04/18 06/04/18 14:02 17:52 WBC RBC Hgb Hct MCV MCH MCHC RDW Plt Count MPV Sodium 136 Potassium 4.1 Chloride 104 Carbon Dioxide 20.9 L Anion Gap 11 BUN 41 H Creatinine 1.91 H Estimated GFR 26 L POC Glucose 250 H Random Glucose 238 H Hemoglobin A1c Calcium 8.2 L Phosphorus 4.8 Magnesium 1.6 Total Bilirubin 0.2 AST 15 ALT 28 Alkaline Phosphatase 148 H Total Protein 4.6 L Albumin 1.8 L Beta-Hydroxybutyric Acd Urine Color Urine Clarity Urine pH Ur Specific [place] Urine Protein Urine Glucose (UA) Urine Ketones Urine Occult Blood Urine Nitrate Urine Bilirubin Urine Urobilinogen Ur Leukocyte Esterase Urine RBC Urine WBC Urine WBC Clumps Ur Squamous Epith Cells Urine Bacteria Micro UA Comment Urine Culture Comments Nasal Screen MRSA (PCR) Microbiology 06/03/18 20:02 Catheterized Urine Urine Culture - Preliminary gram negative rods Assessment and Plan - Plan 67 years old female 1. DKA, improved A1C 10.8 Patient with blood sugar of 642, elevated beta hydroxybutyrate, and anion gap of 18 VBG 7.30/35/58/17 DC insulin drip Start Novolog sliding scale Restart her Levemir at lower doses SQ bid (at home was on 30 units bid ) in am Transition to subcutaneous insulin once anion gap closes and blood glucose controlled 2. UTI- gram negative rods CT of the abdomen/pelvis shows extensive air throughout the urinary bladder suggestive of a gas forming organism UA consistent with UTI on Cefepime Urine sensitivity pending 3. End-stage renal disease on dialysis- - - DC IVF Nephrology consulted, appreciate assistance 4. CHF/CAD Continue home medications 5. COPD/? PNA Duo nebs as needed CT of the abdomen/pelvis shows possible infiltrate within left lung base Antibiotics as above FEN Heparin
[2018-06-04] MEDS: Insulin NovoLIN Regular Correctional Sugar Inj SQ SCH (21:15)
[2018-06-05] MEDS: Acetaminophen 325 MG Tablet PO PRN ×5 (01:59→21:41)
--- NOTE | 2018-06-05 08:00 | P.PN ---
Subjective Interval history: awake and alert no complains of nausea or vomiting no pain better glucose readings off insulin drip since yesterday Physical Exam Vital signs: Vital Signs 06/04/18 08:00 06/04/18 10:00 06/04/18 12:00 Temperature 97.4 F L 97.7 F Pulse Rate 80 61 60 Respiratory Rate 8 L 13 Blood Pressure 183/81 H 129/61 Pulse Oximetry 97 95 06/04/18 14:00 06/04/18 16:00 06/04/18 18:00 Temperature 97.9 F Pulse Rate 60 62 61 Respiratory Rate 12 Blood Pressure 128/60 Pulse Oximetry 96 06/04/18 19:22 06/04/18 20:00 06/04/18 22:00 Temperature 98.8 F Pulse Rate 81 83 Respiratory Rate 21 Blood Pressure 129/66 Pulse Oximetry 96 96 06/05/18 00:00 06/05/18 02:00 06/05/18 04:00 Temperature Pulse Rate 81 81 80 Respiratory Rate 16 15 Blood Pressure 153/75 H 155/75 H Pulse Oximetry 96 93 L 06/05/18 06:00 06/05/18 07:38 Temperature Pulse Rate 80 Respiratory Rate Blood Pressure Pulse Oximetry 94 L Intake & Output 06/04/18 06/05/18 06/05/18 18:59 06:59 18:59 Intake Total 460 / 460 0 / 0 Output Total 150 / 150 450 / 450 Balance 310 / 310 -450 / -450 Weight 82.9 kg Intake: IV 100 / 100 Maxipime Inj 1,000 MG In NS Inj 100 / 100 100 ML @ 200 mls/hr IV.SIG Q12H [facility] Rx#:[id number] Oral 360 / 360 0 / 0 Output: Urine 0 / 0 Urine Amount (Catheter) 150 / 150 450 / 450 Indwelling Urethral Catheter 150 / 150 450 / 450 Other: # Bowel Movements 0 0 - Constitutional no acute distress - Routine HEENT Exam Head: Present: normocephalic Eye: Present: PERRL ENT: Present: mucous membranes moist - Routine Respiratory Exam Present: CTA bilaterally - Routine Cardiovascular Exam Present: RRR - Routine Abdominal Exam Present: soft, normoactive bowel sounds - Routine Extremities Exam Comments: no edema, good perpipehral pulses - Routine Skin Exam Present: intact - Urinary Catheter Management Indwelling Urethral Catheter Cath placed during this visit: yes, but has since been removed by the nurse Urethral indwelling: Yes Reason for continuing: Acute urinary retention Insertion date: 06/03/18 Insertion time: 23:17 Removal date: 06/05/18 Results - Labs CBC & Chem 7: 06/04/18 14:02 06/04/18 14:02 Laboratory Results - last 24 hr 06/03/18 06/03/18 06/04/18 16:20 20:02 08:00 WBC RBC Hgb Hct MCV MCH MCHC RDW Plt Count MPV Sodium Potassium Chloride Carbon Dioxide Anion Gap BUN Creatinine Estimated GFR POC Glucose 117 H Random Glucose Hemoglobin A1c 10.8 H Calcium Phosphorus Magnesium Total Bilirubin AST ALT Alkaline Phosphatase Total Protein Albumin Urine Color Red Urine Clarity Turbid H Urine pH 5.0 Ur Specific [place] 1.018 Urine Protein 100 H Urine Glucose (UA) 500 or greater Urine Ketones Trace H Urine Occult Blood Large H Urine Nitrate Negative Urine Bilirubin Negative Urine Urobilinogen Less than 2 Ur Leukocyte Esterase Small H Urine RBC Urine WBC Urine WBC Clumps Few H Ur Squamous Epith Cells 5 Urine Bacteria Moderate H Micro UA Comment Cath-culture ind Urine Culture Comments Cath-cult indicated 06/04/18 06/04/18 06/04/18 08:23 08:52 09:59 WBC RBC Hgb Hct MCV MCH MCHC RDW Plt Count MPV Sodium Potassium Chloride Carbon Dioxide Anion Gap BUN Creatinine Estimated GFR POC Glucose 110 135 H 11 L* Random Glucose Hemoglobin A1c Calcium Phosphorus Magnesium Total Bilirubin AST ALT Alkaline Phosphatase Total Protein Albumin Urine Color Urine Clarity Urine pH Ur Specific [place] Urine Protein Urine Glucose (UA) Urine Ketones Urine Occult Blood Urine Nitrate Urine Bilirubin Urine Urobilinogen Ur Leukocyte Esterase Urine RBC Urine WBC Urine WBC Clumps Ur Squamous Epith Cells Urine Bacteria Micro UA Comment Urine Culture Comments 06/04/18 06/04/18 06/04/18 10:02 10:36 10:56 WBC RBC Hgb Hct MCV MCH MCHC RDW Plt Count MPV Sodium Cancelled Potassium Cancelled Chloride Cancelled Carbon Dioxide Cancelled Anion Gap Cancelled BUN Cancelled Creatinine Cancelled Estimated GFR Cancelled POC Glucose 131 H 148 H Random Glucose Cancelled Hemoglobin A1c Calcium Cancelled Phosphorus 4.5 Magnesium 1.8 Total Bilirubin AST ALT Alkaline Phosphatase Total Protein Albumin Urine Color Urine Clarity Urine pH Ur Specific [place] Urine Protein Urine Glucose (UA) Urine Ketones Urine Occult Blood Urine Nitrate Urine Bilirubin Urine Urobilinogen Ur Leukocyte Esterase Urine RBC Urine WBC Urine WBC Clumps Ur Squamous Epith Cells Urine Bacteria Micro UA Comment Urine Culture Comments 06/04/18 06/04/18 06/04/18 10:56 11:01 12:55 WBC RBC Hgb Hct MCV MCH MCHC RDW Plt Count MPV Sodium 138 Potassium 4.1 Chloride 105 Carbon Dioxide 21.3 Anion Gap 12 BUN 40 H Creatinine 1.83 H Estimated GFR 28 L POC Glucose 156 H 178 H Random Glucose 146 H D Hemoglobin A1c Calcium 8.2 L Phosphorus Magnesium Total Bilirubin 0.2 AST 20 ALT 29 Alkaline Phosphatase 153 H Total Protein 4.7 L Albumin 1.9 L Urine Color Urine Clarity Urine pH Ur Specific [place] Urine Protein Urine Glucose (UA) Urine Ketones Urine Occult Blood Urine Nitrate Urine Bilirubin Urine Urobilinogen Ur Leukocyte Esterase Urine RBC Urine WBC Urine WBC Clumps Ur Squamous Epith Cells Urine Bacteria Micro UA Comment Urine Culture Comments 06/04/18 06/04/18 06/04/18 14:02 14:02 17:52 WBC 7.8 RBC 3.59 L Hgb 10.8 L Hct 32.8 L MCV 91.5 D MCH 30.2 MCHC 33.0 RDW 18.1 H Plt Count 186 MPV 8.7 Sodium 136 Potassium 4.1 Chloride 104 Carbon Dioxide 20.9 L Anion Gap 11 BUN 41 H Creatinine 1.91 H Estimated GFR 26 L POC Glucose 250 H Random Glucose 238 H Hemoglobin A1c Calcium 8.2 L Phosphorus 4.8 Magnesium 1.6 Total Bilirubin 0.2 AST 15 ALT 28 Alkaline Phosphatase 148 H Total Protein 4.6 L Albumin 1.8 L Urine Color Urine Clarity Urine pH Ur Specific [place] Urine Protein Urine Glucose (UA) Urine Ketones Urine Occult Blood Urine Nitrate Urine Bilirubin Urine Urobilinogen Ur Leukocyte Esterase Urine RBC Urine WBC Urine WBC Clumps Ur Squamous Epith Cells Urine Bacteria Micro UA Comment Urine Culture Comments 06/04/18 06/05/18 06/05/18 20:25 02:02 04:47 WBC RBC Hgb Hct MCV MCH MCHC RDW Plt Count MPV Sodium Potassium Chloride Carbon Dioxide Anion Gap BUN Creatinine Estimated GFR POC Glucose 206 H 118 H 140 H Random Glucose Hemoglobin A1c Calcium Phosphorus Magnesium Total Bilirubin AST ALT Alkaline Phosphatase Total Protein Albumin Urine Color Urine Clarity Urine pH Ur Specific [place] Urine Protein Urine Glucose (UA) Urine Ketones Urine Occult Blood Urine Nitrate Urine Bilirubin Urine Urobilinogen Ur Leukocyte Esterase Urine RBC Urine WBC Urine WBC Clumps Ur Squamous Epith Cells Urine Bacteria Micro UA Comment Urine Culture Comments Microbiology 06/03/18 20:02 Catheterized Urine Urine Culture - Preliminary gram negative rods Assessment and Plan - Plan 67 years old female 1. DKA, improved A1C 10.8 Restart her Levemir at lower doses 5 units SQ bid (at home was on 30 units bid ) Transition to subcutaneous insulin once anion gap closes and blood glucose controlled 2. Gram negative vahid UTI- C and S pending CT of the abdomen/pelvis shows extensive air throughout the urinary bladder suggestive of a gas forming organism UA consistent with UTI on Cefepime Urine sensitivity pending remove philippe- check voiding 3. End-stage renal disease on dialysis- Philippe was placed on admission- DC today and check voiding DC IVF Nephrology ff 4. CHF/CAD Continue home medications- Coreg, Statins, ASA 5. COPD/? PNA Duo nebs as needed CT of the abdomen/pelvis shows possible infiltrate within left lung base Antibiotics as above Increase acitivty- out of bed to chair, PT 6. Deconditioning- get PT consult- out of bed to chair - per patient up and ambulates with a walker Transfer to medical floor FEN Heparin
[2018-06-05] MEDS: Furosemide 40 MG Tablet PO SCH (08:47)
[2018-06-05] MEDS: hydrALAZINE 50 MG Tablet PO SCH ×3 (08:47→17:01)
[2018-06-05] MEDS: Carvedilol 6.25 MG Tablet PO SCH ×2 (08:47→21:36)
[2018-06-05] MEDS: Isosorbide Mononitrate 60 MG ER 24HR Tablet (Imdur) PO SCH (08:47)
[2018-06-05] MEDS: Insulin NovoLIN Regular Correctional Sugar Inj SQ SCH ×4 (08:48→21:58)
[2018-06-05] MEDS: Insulin Detemir Inj 1,000 UNIT/10 ML Vial SQ SCH ×2 (08:51→21:54)
--- NOTE | 2018-06-05 09:28 | P.PNNP ---
Subjective Interval history: no acute complaints, glucose improving Physical Exam Vital signs: Vital Signs 06/04/18 10:00 06/04/18 12:00 06/04/18 14:00 Temperature 97.7 F Pulse Rate 61 60 60 Respiratory Rate 13 Blood Pressure 129/61 Pulse Oximetry 95 06/04/18 16:00 06/04/18 18:00 06/04/18 19:22 Temperature 97.9 F Pulse Rate 62 61 Respiratory Rate 12 Blood Pressure 128/60 Pulse Oximetry 96 96 06/04/18 20:00 06/04/18 22:00 06/05/18 00:00 Temperature 98.8 F Pulse Rate 81 83 81 Respiratory Rate 21 16 Blood Pressure 129/66 153/75 H Pulse Oximetry 96 96 06/05/18 02:00 06/05/18 04:00 06/05/18 06:00 Temperature Pulse Rate 81 80 80 Respiratory Rate 15 Blood Pressure 155/75 H Pulse Oximetry 93 L 06/05/18 07:38 Temperature Pulse Rate Respiratory Rate Blood Pressure Pulse Oximetry 94 L Intake & Output 06/04/18 06/05/18 06/05/18 18:59 06:59 18:59 Intake Total 460 / 460 100 / 100 Output Total 150 / 150 450 / 450 Balance 310 / 310 -350 / -350 Weight 82.9 kg Intake: IV 100 / 100 100 / 100 Maxipime Inj 1,000 MG In NS Inj 100 / 100 100 / 100 100 ML @ 200 mls/hr IV.SIG Q12H [facility] Rx#:[id number] Oral 360 / 360 0 / 0 Output: Urine 0 / 0 Urine Amount (Catheter) 150 / 150 450 / 450 Indwelling Urethral Catheter 150 / 150 450 / 450 Other: # Bowel Movements 0 0 - Constitutional no acute distress - Routine HEENT Exam Head: Present: normocephalic Eye: Present: EOMI ENT: Present: mucous membranes moist - Routine Neck Exam Present: supple - Routine Respiratory Exam Present: CTA bilaterally - Routine Cardiovascular Exam Present: RRR - Routine Abdominal Exam Present: soft - Routine Extremities Exam Present: edema - Routine Skin Exam Present: intact - Routine Neurological Exam Present: alert, oriented X3 - Detailed Neurological Exam: Coma Scale Eye Opening: Spontaneous - Routine Psychiatric Exam Present: normal affect - Urinary Catheter Management Indwelling Urethral Catheter Cath placed during this visit: yes, but has since been removed by the nurse Urethral indwelling: Yes Reason for continuing: Acute urinary retention Insertion date: 06/03/18 Insertion time: 23:17 Removal date: 06/05/18 Assessment and Plan - Assessment (1) ESRD (end stage renal disease) on dialysis Code(s): N18.6 - End stage renal disease; Z99.2 - Dependence on renal dialysis Status: Acute - Plan 1. End-stage renal disease on hemodialysis. The patient received dialysis Wednesday outpatient. We will continue with Wednesday, Wednesday, Wednesday dialysis while here inpatient. The patient follows up with Dr. Toro as an outpatient. Initial IVFs with DKA protocol, D/C now. UF as tolerated with HD tomorrow. 2. Diabetic ketoacidosis. Improved now, follow with primary team. 3. Urinary tract infection. GNR on culture, on cefepime 4. Congestive heart failure and coronary artery disease. Limit fluid intake as possible. We will do ultrafiltration with dialysis as needed. 5. Questionable pneumonia. The patient had a CT scan with a questionable left lower lobe infiltrate. She is on cefepime. Continue to monitor.
[2018-06-05 10:17] LABS: Calcium 8.1 mg/dL (8.5-10.1); Carbon Dioxide 18.9 meq/L (21.0-32.0); Potassium 4.6 meq/L (3.5-5.1)
[2018-06-05] MEDS: Budesonide-Formoterol 160/4.5 MCG 6 GM Inhaler INH SCH (21:46)
[2018-06-05] MEDS: NIFEDIPINE 30 MG PO SCH (21:52)
[2018-06-05] MEDS: Chlorhexidine Gluconate 2% 1 Pack (2 Cloths) TOPICAL SCH (21:53)
[2018-06-06] MEDS: Budesonide-Formoterol 160/4.5 MCG 6 GM Inhaler INH SCH ×3 (00:48→22:10)
[2018-06-06] MEDS: Chlorhexidine Gluconate 2% 1 Pack (2 Cloths) TOPICAL SCH (04:45)
--- NOTE | 2018-06-06 09:43 | P.PNNP ---
Subjective Interval history: Seen during hemodialysis, tolerating well. Alert and oriented X 3. Feeling much better. <Jessica Clemons - Last Filed: 06/06/18 09:37> Physical Exam Vital signs: Vital Signs 06/05/18 10:00 06/05/18 12:00 06/05/18 16:00 Temperature 98.3 F 97.6 F Pulse Rate 87 66 62 Respiratory Rate 16 18 Blood Pressure 153/67 H 155/2 H Pulse Oximetry 93 L 96 06/05/18 20:00 06/05/18 22:12 06/06/18 00:12 Temperature 98.6 F Pulse Rate 68 74 74 Respiratory Rate 20 Blood Pressure 200/89 H Pulse Oximetry 98 06/06/18 00:40 06/06/18 01:42 06/06/18 02:12 Temperature Pulse Rate 82 74 Respiratory Rate 18 20 Blood Pressure 197/86 H Pulse Oximetry 98 06/06/18 05:00 06/06/18 06:00 06/06/18 06:52 Temperature 97.8 F Pulse Rate 68 69 Respiratory Rate 19 18 Blood Pressure 144/80 H Pulse Oximetry 95 Intake & Output 06/05/18 06/06/18 06/06/18 18:59 06:59 18:59 Intake Total 100 / 100 100 / 100 Output Total 0 / 0 Balance 100 / 100 100 / 100 Weight 82.9 kg Intake: IV 100 / 100 100 / 100 Maxipime Inj 1,000 MG In NS Inj 100 / 100 100 / 100 100 ML @ 200 mls/hr IV.SIG Q12H [facility]T Rx#:[id number] Oral 0 / 0 Output: Urine 0 / 0 Other: Date of Last Bowel Movement 06/02/18 06/02/18 # Bowel Movements 0 - Constitutional no acute distress - Routine HEENT Exam Head: Present: normocephalic - Routine Neck Exam Present: supple. Absent: JVD - Routine Respiratory Exam Present: CTA bilaterally. Absent: rales, crackles - Routine Cardiovascular Exam Present: RRR - Routine Abdominal Exam Present: soft, normoactive bowel sounds. Absent: tenderness, distended - Routine Extremities Exam Present: edema Comments: dependent - Routine Skin Exam Present: intact, warm - Routine Neurological Exam Present: alert, oriented X3 - Urinary Catheter Management Indwelling Urethral Catheter Cath placed during this visit: yes, but has since been removed by the nurse Urethral indwelling: Yes Reason for continuing: Acute urinary retention Insertion date: 06/03/18 Insertion time: 23:17 Removal date: 06/05/18 <Jessica Clemons - Last Filed: 06/06/18 09:37> Vital signs: Vital Signs 06/05/18 22:12 06/06/18 00:12 06/06/18 00:40 Temperature Pulse Rate 74 74 Respiratory Rate 18 Blood Pressure Pulse Oximetry 06/06/18 01:42 06/06/18 02:12 06/06/18 05:00 Temperature 97.8 F Pulse Rate 82 74 68 Respiratory Rate 20 19 Blood Pressure 197/86 H 144/80 H Pulse Oximetry 98 95 06/06/18 06:00 06/06/18 06:52 06/06/18 08:35 Temperature Pulse Rate 69 Respiratory Rate 18 Blood Pressure Pulse Oximetry 94 L 06/06/18 09:00 06/06/18 13:00 06/06/18 16:00 Temperature 97.4 F L 97.4 F L 97.7 F Pulse Rate 63 79 82 Respiratory Rate 16 16 16 Blood Pressure 171/73 H 152/72 H 142/65 H Pulse Oximetry 93 L 97 94 L 06/06/18 19:55 Temperature 98.3 F Pulse Rate 68 Respiratory Rate 18 Blood Pressure 124/85 Pulse Oximetry 97 Intake & Output 06/06/18 06/06/18 06/07/18 06:59 18:59 06:59 Intake Total 100 / 100 Output Total 0 / 0 3500 / 3500 Balance 100 / 100 -3500 / -3500 Weight 82.9 kg Intake: IV 100 / 100 Maxipime Inj 1,000 MG In NS Inj 100 / 100 100 ML @ 200 mls/hr IV.SIG Q12H [facility] Rx#:[id number] Oral 0 / 0 Output: Urine 0 / 0 Hemodialysis Amount 3500 / 3500 Other: Date of Last Bowel Movement 06/02/18 06/02/18 06/03/18 # Bowel Movements 0 - Urinary Catheter Management Indwelling Urethral Catheter Cath placed during this visit: no <Des Toro - Last Filed: 06/06/18 21:37> Assessment and Plan - Assessment (1) ESRD (end stage renal disease) on dialysis Code(s): N18.6 - End stage renal disease; Z99.2 - Dependence on renal dialysis Status: Acute - Plan 1. End-stage renal disease on hemodialysis. We will continue with Wednesday, Wednesday, Wednesday dialysis while here inpatient. Seen during hemodialysis, will remove fluid as tolerated. 2. Diabetic ketoacidosis. Improved now, follow with primary team. 3. Urinary tract infection. GNR on culture, on cefepime 4. Congestive heart failure and coronary artery disease. Limit fluid intake as possible. We will do ultrafiltration with dialysis as needed. 5. Questionable pneumonia. The patient had a CT scan with a questionable left lower lobe infiltrate. She is on cefepime. Continue to monitor. <Jessica Clemons - Last Filed: 06/06/18 09:37> - Assessment (1) ESRD (end stage renal disease) on dialysis Code(s): N18.6 - End stage renal disease; Z99.2 - Dependence on renal dialysis Status: Acute - Attending Attestation Patient seen and examined, agree with above. HD done today,continue antibiotics. <Des Toro - Last Filed: 06/06/18 21:37>
[2018-06-06] MEDS: Isosorbide Mononitrate 60 MG ER 24HR Tablet (Imdur) PO SCH (13:50)
[2018-06-06] MEDS: Carvedilol 6.25 MG Tablet PO SCH ×2 (13:51→22:08)
[2018-06-06] MEDS: Furosemide 40 MG Tablet PO SCH (13:51)
[2018-06-06] MEDS: hydrALAZINE 50 MG Tablet PO SCH ×3 (13:51→18:06)
[2018-06-06] MEDS: Insulin Detemir Inj 1,000 UNIT/10 ML Vial SQ SCH ×2 (13:52→22:15)
--- NOTE | 2018-06-06 16:04 | P.PNIM ---
Subjective Interval history: Monitoring for blood sugar stability. Patient is doing well after leaving ICU. Once blood sugars demonstrate stability she should be stable for discharge. Physical Exam Vital signs: Vital Signs 06/05/18 16:00 06/05/18 20:00 06/05/18 22:12 Temperature 97.6 F 98.6 F Pulse Rate 62 68 74 Respiratory Rate 18 20 Blood Pressure 155/2 H 200/89 H Pulse Oximetry 96 98 06/06/18 00:12 06/06/18 00:40 06/06/18 01:42 Temperature Pulse Rate 74 82 Respiratory Rate 18 20 Blood Pressure 197/86 H Pulse Oximetry 98 06/06/18 02:12 06/06/18 05:00 06/06/18 06:00 Temperature 97.8 F Pulse Rate 74 68 69 Respiratory Rate 19 Blood Pressure 144/80 H Pulse Oximetry 95 06/06/18 06:52 06/06/18 09:00 06/06/18 13:00 Temperature 97.4 F L 97.4 F L Pulse Rate 63 79 Respiratory Rate 18 16 16 Blood Pressure 171/73 H 152/72 H Pulse Oximetry 93 L 97 Intake & Output 06/05/18 06/06/18 06/06/18 18:59 06:59 18:59 Intake Total 100 / 100 100 / 100 Output Total 0 / 0 3500 / 3500 Balance 100 / 100 100 / 100 -3500 / -3500 Weight 82.9 kg Intake: IV 100 / 100 100 / 100 Maxipime Inj 1,000 MG In NS Inj 100 / 100 100 / 100 100 ML @ 200 mls/hr IV.SIG Q12H [facility] Rx#:[id number] Oral 0 / 0 Output: Urine 0 / 0 Hemodialysis Amount 3500 / 3500 Other: Date of Last Bowel Movement 06/02/18 06/02/18 # Bowel Movements 0 Narrative: GENERAL: NAD, A&Ox3 HEAD: Normocephalic. NECK: Supple, trachea midline. No lymphadenopathy. EYES: No scleral icterus. No injection or drainage. CARDIOVASCULAR: Regular rate and rhythm without murmurs, gallops, or rubs. RESPIRATORY: Breath sounds equal bilaterally. No accessory muscle use. GASTROINTESTINAL: Abdomen soft, non-tender, nondistended. MUSCULOSKELETAL: No cyanosis, or edema. SKIN: Warm and dry. NEURO: No focal neurological deficits. - Urinary Catheter Management Indwelling Urethral Catheter Cath placed during this visit: yes, but has since been removed by the nurse Urethral indwelling: Yes Reason for continuing: Acute urinary retention Insertion date: 06/03/18 Insertion time: 23:17 Removal date: 06/05/18 Results - Labs CBC & Chem 7: 06/04/18 14:02 06/05/18 09:08 Laboratory Results - last 24 hr 06/05/18 06/05/18 06/06/18 16:48 21:26 08:27 POC Glucose 147 H 207 H 100 06/06/18 06/06/18 11:41 13:00 POC Glucose 84 97 Assessment and Plan - Plan 67 years old female admit secondary to DKA DKA Resolved Diabetes mellitus type 2 Follow blood sugars Insulin sliding scale Diabetic diet Continue Levemir and adjust as needed Urinary tract infection Follow cultures Continue cefepime This may have been contributory to the patient's DKA End-stage renal disease Continue dialysis on MWF Nephrology following Follow renal function and electrolytes Congestive heart failure Coronary artery disease No exacerbation Continue Coreg, statin, aspirin COPD Possible pneumonia Continue cefepime Deconditioned PT continued DVT Prophylaxis SCDs
[2018-06-06] MEDS: Insulin NovoLIN Regular Correctional Sugar Inj SQ SCH ×3 (18:23→22:14)
[2018-06-07] MEDS: Chlorhexidine Gluconate 2% 1 Pack (2 Cloths) TOPICAL SCH (05:04)
[2018-06-07] MEDS: Furosemide 40 MG Tablet PO SCH (08:30)
[2018-06-07] MEDS: Isosorbide Mononitrate 60 MG ER 24HR Tablet (Imdur) PO SCH (08:30)
[2018-06-07] MEDS: Carvedilol 6.25 MG Tablet PO SCH (08:31)
[2018-06-07] MEDS: hydrALAZINE 50 MG Tablet PO SCH ×2 (08:31→14:52)
[2018-06-07] MEDS: Insulin NovoLIN Regular Correctional Sugar Inj SQ SCH ×2 (08:42→14:52)
[2018-06-07] MEDS: Insulin Detemir Inj 1,000 UNIT/10 ML Vial SQ SCH (09:10)
[2018-06-07 11:27] LABS: Baso % (Auto) 0.6 % (0.0-2.0); Eos # (Auto) 0.1 th/mm3 (0.0-0.4); Eos % (Auto) 2.4 % (0.0-4.0); Hematocrit 33.5 % (35.0-46.0); Hemoglobin 11.1 gm/dL (11.6-15.3); Lymph # (Auto) 0.8 th/mm3 (1.0-4.8); Lymph % (Auto) 14.9 % (9.0-44.0); Mean Corpuscular HGB Conc 33.1 % (32.0-36.0); Mean Corpuscular Hemoglobin 30.1 pg (27.0-34.0); Mean Corpuscular Volume 90.8 fL (80.0-100.0); Mean Platelet Volume 8.3 fL (7.0-11.0); Mono # (Auto) 0.5 th/mm3 (0.0-0.9); Neut # (Auto) 3.7 th/mm3 (1.8-7.7); Neut % (Auto) 72.1 % (16.0-70.0); Platelet Count 164 th/mm3 (150-450); Red Blood Count 3.69 mil/mm3 (4.00-5.30); White Blood Count 5.2 th/mm3 (4.0-11.0)
[2018-06-07] MEDS: Budesonide-Formoterol 160/4.5 MCG 6 GM Inhaler INH SCH (11:51)
[2018-06-07 12:34] LABS: Alanine Aminotransferase 22 U/L (10-53); Albumin 1.8 g/dL (3.4-5.0); Alkaline Phosphatase 128 U/L (45-117); Anion Gap 11 meq/L (5-15); Aspartate Aminotransferase 19 U/L (15-37); Blood Urea Nitrogen 34 mg/dL (7-18); Calcium 7.8 mg/dL (8.5-10.1); Carbon Dioxide 23.7 meq/L (21.0-32.0); Chloride 105 meq/L (98-107); Glomerular Filtration Rate 26 mL/min (>89); Glucose,Random 148 mg/dL (74-106); Potassium 4.5 meq/L (3.5-5.1); Sodium 140 meq/L (136-145); Total Protein 4.9 g/dL (6.4-8.2)
--- NOTE | 2018-06-07 12:45 | P.DCO ---
- Physical Therapy Order: Evaluate and treat, Improve ambulation, Strength and gait training - Home Health Nursing Order: Medical education, Diabetic education, Nursing assessment with vital signs - Certification I have seen patient Brinda Maynard on 06/07/18. My clinical findings support the need for the requested home health care services because: Limited mobility due to disease progression, Deconditioned with increased weakness, Limited ability to care for self, High risk of falls, Infection with risk of complications I certify that my clinical findings support that this patient is homebound because: Unsteady gait/balance, Unsafe to leave home unassisted, Unable to use public transportation
--- NOTE | 2018-06-07 12:46 | P.DS ---
Date of admission: 06/03/18 20:33 Primary care physician: NICHOLAS Benoit Brief History from admission: 67-year-old female with a past medical history significant for CHF, COPD, end- stage renal disease on dialysis, diabetes mellitus and coronary artery disease presents the emergency department for evaluation of dizziness and nausea. The patient reports that she was "just not feeling well." She states she felt as if she was in DKA. She states she has been compliant with her insulin although she cannot tell me how many times a day she takes her insulin or what her usual dosing is. The patient also reports that she takes her sugar at home with a glucometer but she cannot remember what her numbers have been recently. She is an extremely poor historian and her compliance is questionable. She denies any chest pain or shortness of breath. No abdominal pain. No emesis or diarrhea no fevers/chills. No lateralizing signs/symptoms. DS: Medications - Discharge Medications Prescriptions: insulin detemir U-100 [Levemir U-100 Insulin] 5 unit SUB-Q BID #1 bottle Lactobacillus acidophilus 500 mmu cells PO TID #30 cap sulfamethoxazole-trimethoprim [Bactrim DS] 1 tab PO BID 5 Days #10 tab DS: Summary Hospital Course: Mrs. Maynard is a 7-year-old female. She was admitted with DKA. Etiology for this could have been related to a urinary tract infection which was also present. Klebsiella grew on culture. Patient has been transitioned off of IV insulin to subcutaneous insulin. Currently she is on detemir insulin 5 units twice a day. This is decreased dose from her baseline of 20 units twice a day. However blood sugars are showing stability. Antibiotic selection is made as listed below and patient is medically clear and stable for discharge home today on treatment changes. - Time Spent with Patient Total time spent providing and/or coordinating discharge services: - Quality: VTE Deep Vein Thrombosis/Pulmonary Embolism Present on Admission: No Exam Vital signs: Vital Signs 06/06/18 13:00 06/06/18 16:00 06/06/18 19:55 Temperature 97.4 F L 97.7 F 98.3 F Pulse Rate 79 82 68 Respiratory Rate 16 16 18 Blood Pressure 152/72 H 142/65 H 124/85 Pulse Oximetry 97 94 L 97 06/06/18 20:00 06/06/18 22:00 06/06/18 22:01 Temperature Pulse Rate 68 Respiratory Rate 18 Blood Pressure Pulse Oximetry 97 06/07/18 00:50 06/07/18 02:00 06/07/18 05:00 Temperature 98.8 F 97.9 F Pulse Rate 68 68 67 Respiratory Rate 18 17 Blood Pressure 130/64 125/65 Pulse Oximetry 96 97 06/07/18 06:00 06/07/18 07:00 06/07/18 08:00 Temperature Pulse Rate 64 Respiratory Rate 17 Blood Pressure Pulse Oximetry 91 L 06/07/18 09:00 06/07/18 09:49 Temperature 97.8 F Pulse Rate 68 Respiratory Rate 16 Blood Pressure 160/71 H Pulse Oximetry 93 L 91 L Intake & Output 06/06/18 06/07/18 06/07/18 18:59 06:59 18:59 Intake Total 100 / 100 1630 / 1630 Output Total 3500 / 3500 0 / 0 Balance -3400 / -3400 1630 / 1630 Weight 84 kg Intake: IV 100 / 100 100 / 100 Maxipime Inj 1,000 MG In NS Inj 100 / 100 100 / 100 100 ML @ 200 mls/hr IV.SIG Q12H [facility] Rx#:[id number] Oral 1530 / 1530 Output: Urine 0 / 0 Hemodialysis Amount 3500 / 3500 Other: # Voids 1 Date of Last Bowel Movement 06/02/18 06/03/18 06/03/18 # Bowel Movements 0 Results Procedures completed during hospitalization: None Labs on day of discharge: Labs from last 24 hours 06/07/18 06/07/18 06/07/18 10:20 10:20 08:28 WBC 5.2 RBC 3.69 L Hgb 11.1 L Hct 33.5 L MCV 90.8 MCH 30.1 MCHC 33.1 RDW 18.0 H Plt Count 164 MPV 8.3 Neut % (Auto) 72.1 H Lymph % (Auto) 14.9 [place] % (Auto) 10.0 H Eos % (Auto) 2.4 Baso % (Auto) 0.6 Neut # (Auto) 3.7 Lymph # (Auto) 0.[address] [place] # (Auto) 0.5 Eos # (Auto) 0.1 Baso # (Auto) 0.0 WBC Differential . Differential Comment Auto diff final Sodium 140 Potassium 4.5 Chloride 105 Carbon Dioxide 23.7 Anion Gap 11 BUN 34 H Creatinine 1.96 H Estimated GFR 26 L POC Glucose 125 H Random Glucose 148 H Calcium 7.8 L Total Bilirubin 0.3 AST 19 ALT 22 Alkaline Phosphatase 128 H Total Protein 4.9 L Albumin 1.8 L 06/06/18 06/06/18 06/06/18 21:08 18:11 13:00 WBC RBC Hgb Hct MCV MCH MCHC RDW Plt Count MPV Neut % (Auto) Lymph % (Auto) [place] % (Auto) Eos % (Auto) Baso % (Auto) Neut # (Auto) Lymph # (Auto) [place] # (Auto) Eos # (Auto) Baso # (Auto) WBC Differential Differential Comment Sodium Potassium Chloride Carbon Dioxide Anion Gap BUN Creatinine Estimated GFR POC Glucose 207 H 193 H 97 Random Glucose Calcium Total Bilirubin AST ALT Alkaline Phosphatase Total Protein Albumin - Impressions ITS Impressions Abdomen/Pelvis CT 06/03/18 16:41 CONCLUSION: 1. Extensive air throughout the urinary bladder suggestive of a gas-forming organism. Clinical correlation is recommended. 2. Severe anasarca. 3. Moderate-sized left pleural effusion and small right pleural effusion. 4. Compressive atelectasis and/or infiltrate within left lung base. 5. Minimal ascites. 6. Table partially calcified left adrenal mass measuring 4 cm. Discharge Plan - Discharge Disposition Patient Disposition: /Home Health Service - Discharge Condition Condition: Stable - Discharge Order Discharge Orders: Discharge Order (Routine); Ordered 06/07/18 Ordered By: Wally Gill - Discharge Details Anticipated Discharge Date: 06/07/18 - Physicians Team Primary Care Provider: Ilsa Treviño Attending Provider: Wally Gill Other Providers: Wally Vila MD
--- NOTE | 2018-06-07 14:22 | P.PNNP ---
Subjective Interval history: Seen earlier in day. Patient with no complaints. Hemodialysis yesterday. <Jessica Clemons - Last Filed: 06/07/18 14:19> Physical Exam Vital signs: Vital Signs 06/06/18 16:00 06/06/18 19:55 06/06/18 20:00 Temperature 97.7 F 98.3 F Pulse Rate 82 68 Respiratory Rate 16 18 Blood Pressure 142/65 H 124/85 Pulse Oximetry 94 L 97 97 06/06/18 22:00 06/06/18 22:01 06/07/18 00:50 Temperature 98.8 F Pulse Rate 68 68 Respiratory Rate 18 18 Blood Pressure 130/64 Pulse Oximetry 96 06/07/18 02:00 06/07/18 05:00 06/07/18 06:00 Temperature 97.9 F Pulse Rate 68 67 64 Respiratory Rate 17 Blood Pressure 125/65 Pulse Oximetry 97 06/07/18 07:00 06/07/18 08:00 06/07/18 09:00 Temperature 97.8 F Pulse Rate 68 Respiratory Rate 17 16 Blood Pressure 160/71 H Pulse Oximetry 91 L 93 L 06/07/18 09:49 06/07/18 12:00 Temperature 97.5 F L Pulse Rate 60 Respiratory Rate 15 Blood Pressure 149/67 H Pulse Oximetry 91 L 94 L Intake & Output 06/06/18 06/07/18 06/07/18 18:59 06:59 18:59 Intake Total 100 / 100 1630 / 1630 Output Total 3500 / 3500 0 / 0 Balance -3400 / -3400 1630 / 1630 Weight 84 kg Intake: IV 100 / 100 100 / 100 Maxipime Inj 1,000 MG In NS Inj 100 / 100 100 / 100 100 ML @ 200 mls/hr IV.SIG Q12H [facility] Rx#:[id number] Oral 1530 / 1530 Output: Urine 0 / 0 Hemodialysis Amount 3500 / 3500 Other: # Voids 1 Date of Last Bowel Movement 06/02/18 06/03/18 06/03/18 # Bowel Movements 0 - Constitutional no acute distress - Routine HEENT Exam Head: Present: normocephalic ENT: Present: mucous membranes moist - Routine Neck Exam Present: supple. Absent: JVD - Routine Respiratory Exam Present: CTA bilaterally. Absent: rhonchi, wheezes, crackles - Routine Cardiovascular Exam Present: RRR. Absent: murmur - Routine Abdominal Exam Present: soft, normoactive bowel sounds - Routine Extremities Exam Absent: edema - Routine Skin Exam Present: dry, warm - Routine Neurological Exam Present: alert, oriented X3 - Routine Psychiatric Exam Present: cooperative - Urinary Catheter Management Indwelling Urethral Catheter Cath placed during this visit: yes, but has since been removed by the nurse Urethral indwelling: Yes Reason for continuing: Acute urinary retention Insertion date: 06/03/18 Insertion time: 23:17 Removal date: 06/05/18 <Jessica Clemons - Last Filed: 06/07/18 14:19> Vital signs: Vital Signs 06/06/18 22:00 06/06/18 22:01 06/07/18 00:50 Temperature 98.8 F Pulse Rate 68 68 Respiratory Rate 18 18 Blood Pressure 130/64 Pulse Oximetry 96 06/07/18 02:00 06/07/18 05:00 06/07/18 06:00 Temperature 97.9 F Pulse Rate 68 67 64 Respiratory Rate 17 Blood Pressure 125/65 Pulse Oximetry 97 06/07/18 07:00 06/07/18 08:00 06/07/18 09:00 Temperature 97.8 F Pulse Rate 65 68 Respiratory Rate 17 16 Blood Pressure 160/71 H Pulse Oximetry 91 L 93 L 06/07/18 09:49 06/07/18 12:00 06/07/18 16:00 Temperature 97.5 F L 98.6 F Pulse Rate 60 67 Respiratory Rate 15 16 Blood Pressure 149/67 H 170/79 H Pulse Oximetry 91 L 94 L 94 L Intake & Output 06/07/18 06/07/18 06/08/18 06:59 18:59 06:59 Intake Total 1630 / 1630 Output Total 0 / 0 Balance 1630 / 1630 Weight 84 kg Intake: IV 100 / 100 Maxipime Inj 1,000 MG In NS Inj 100 / 100 100 ML @ 200 mls/hr IV.SIG Q12H [facility] Rx#:[id number] Oral 1530 / 1530 Output: Urine 0 / 0 Other: # Voids 1 Date of Last Bowel Movement 06/03/18 06/03/18 # Bowel Movements 0 - Urinary Catheter Management Indwelling Urethral Catheter Cath placed during this visit: no <Des Toro - Last Filed: 06/07/18 22:00> Assessment and Plan - Assessment (1) ESRD (end stage renal disease) on dialysis Code(s): N18.6 - End stage renal disease; Z99.2 - Dependence on renal dialysis Status: Acute - Plan 1. End-stage renal disease on hemodialysis. We will continue with Wednesday, Wednesday, Wednesday dialysis while here inpatient. Hemodialysis yesterday with removal of 3.5 liters. 2. Diabetic ketoacidosis. Improved now, follow with primary team. 3. Urinary tract infection. GNR on culture, on cefepime 4. Congestive heart failure and coronary artery disease. Limit fluid intake as possible. Avoid IVF administration. 5. Questionable pneumonia. The patient had a CT scan with a questionable left lower lobe infiltrate. She is on cefepime. Continue to monitor. Discharge plans underway <Jessica Clemons - Last Filed: 06/07/18 14:19> - Assessment (1) ESRD (end stage renal disease) on dialysis Code(s): N18.6 - End stage renal disease; Z99.2 - Dependence on renal dialysis Status: Acute - Attending Attestation Patient seen and examine, agree with above. Patient for discharge. Told to watch fluid and salt intake. Continue HD as out patient. <Des Toro - Last Filed: 06/07/18 22:00>
== END 2018-06-07 16:50 | disposition home health service (06) ==
LOC: NEPE 15:52 → NEDA 20:33 → HIMC 23:40 → N05 06-05 13:56
PROVIDERS: ADMIT Hospitalist; ATTEND Hospitalist

== ENCOUNTER 2018-06-14 05:53 | Observation (INO) ==
[2018-06-14] MEDS ORDERED: Chlorhexidine Gluconate 2% 1 Pack (2 Cloths) TOPICAL SCH (06:30)
[2018-06-14] MEDS ORDERED: Metoprolol Tartrate 25 MG Tablet PO SCH (06:30)
[2018-06-14] MEDS ORDERED: Insulin NovoLIN Regular Correctional Sugar Inj SQ SCH (06:30)
[2018-06-14] MEDS ORDERED: Heparin 10,000 UNITS/10 ML Vial (for IV use) ONE (06:53)
[2018-06-14] MEDS ORDERED: Protamine Sulfate Inj 50 MG/5 ML Vial ONE (06:53)
[2018-06-14] MEDS ORDERED: Sodium Chlor 0.9% Inj 500 ML IV.SIG SCH (07:00)
--- NOTE | 2018-06-14 07:11 | P.HPVS ---
History of Present Illness Chief Complaint: ESRD need for HD access History of Present Illness: 67 yo female with ESRD on HD MWF via R chest catheter. Julienne HD yesterday. Presents for AVF - no autogenous options, L handed. Going to OR for RIGHT UE prosthetic access. - Inpatient Certification If this patient has been admitted as an Inpatient: I certify that the inpatient services were ordered in accordance with Medicare regulations governing the order. This includes certification that hospital inpatient services are reasonable and necessary and in the case of services not specified as inpatient-only under 42 CFR 419.22(n), that they are appropriately provided as inpatient services in accordance to with the 2-midnight benchmark under 43 CFR 412.3(e) Estimated Total Length of Stay (Days): 1 Plans for Post Hospital Care: Home Review of Systems Constitutional: Denies anorexia, Denies body ache(s), Denies chills, Denies daytime sleepiness, Denies excessive sweating, Denies fatigue, Denies fever(s), Denies headache(s), Denies increased appetite, Denies lack of energy, Denies malaise, Denies night sweats, Denies weakness, Denies weight gain, Denies weight loss, Denies other PMFSH - History History Provided By: Patient - Medical History Medical History: Medical History (Last Reviewed 06/14/18 @ 07:08 by Linwood Luna MD) Anemia CAD (coronary artery disease) CHF (congestive heart failure) COPD (chronic obstructive pulmonary disease) Diabetes ESRD (end stage renal disease) on dialysis Hyperkalemia Hypoxia - Surgical History Surgical History: Surgical History (Last Reviewed 06/14/18 @ 07:08 by Linwood Luna MD) H/O: History of tonsillectomy Hx of appendectomy Hx of heart artery stent - Family History Family History: Family History (Last Updated 06/03/18 @ 16:29 by Kamini Villarreal) Other No pertinent family history - Tobacco History Second Hand Smoke Exposure: No Smoking Status: Former smoker Tobacco Type: Cigarettes - Alcohol History How Often Do You Have a Drink Containing Alcohol: Never - Substance Use History Substance History: No History of Abuse Medications and Allergies Active Medications: Active Medications Chlorhexidine Gluconate (Chlorhexidine 2% Cloth) 3 pack TOPICAL BUYING INTERN YAMILET Stop: 06/17/18 06:17 Lactated Ringer's (Lr 1000 Ml Inj) 1,000 mls @ 30 mls/hr IV.SIG .Q24H [facility] Stop: 06/17/18 06:17 Sodium Chloride (Ns Inj) 500 mls @ 30 mls/hr IV.SIG .Q10H [facility] Stop: 06/17/18 06:17 Insulin Human Regular (Novolin R Correctional Sugar Inj) 0 units SQ BUYING INTERN [facility] ; Protocol Stop: 06/17/18 06:17 Metoprolol Tartrate (Lopressor) 25 mg PO [employer]YING INTERN [facility] Stop: 06/17/18 06:17 Povidone Iodine (Betadine 5% Antisepsis Kit) 1 applicatio EACH NARE BUYING INTERN [facility] Stop: 06/17/18 06:17 Allergies Allergy/AdvReac Type Severity Reaction Status Date / Time propoxyphene Allergy Intermediate RASH Verified 06/14/18 06:23 Home Medications Medication Instructions Recorded Confirmed Type albuterol sulfate [Ventolin HFA] 2 puff INHALATION Q6H PRN 06/03/18 06/14/18 History aspirin 81 mg PO DAILY 06/03/18 06/14/18 History atorvastatin 40 mg PO HS 06/03/18 06/14/18 History budesonide-formoterol [Symbicort] 2 puff INHALATION BID 06/03/18 06/14/18 History carvedilol 6.25 mg PO BID 06/03/18 06/14/18 History clonidine HCl [Catapres] 0.1 mg PO TID PRN 06/03/18 06/14/18 History doxazosin 2 mg PO DAILY 06/03/18 06/14/18 History ferrous sulfate 325 mg PO DAILY 06/03/18 06/14/18 History furosemide 40 mg PO DAILY 06/03/18 06/14/18 History hydralazine 50 mg PO TID 06/03/18 06/14/18 History isosorbide mononitrate 60 mg PO DAILY 06/03/18 06/14/18 History nifedipine 30 mg PO BID 06/03/18 06/14/18 History Physical Exam Vital Signs / I&O: Intake & Output 06/13/18 06/14/18 06/14/18 18:59 06:59 18:59 Weight 77 kg Other: Weight On Admission 77 kg Neuro: alert, pleasant, [place] HEENT: NC/AT Neck: no JVD Heart: reg rate Lungs: clear Vascular: palpable R UE pulses Extremities: no wounds R UE Laboratory Results - last 24 hr 06/14/18 06:48 POC Glucose 221 H Hct 33 plt 164 INR 1.0 Caprini VTE Risk Assessment Caprini VTE Risk Assessment: No/Low Risk (score <= 1) (Giving intraoperative heparin) Alexrini Risk Assessment Model: Point Value = 1 Point Value = 2 Point Value = 3 Point Value = 5 Age 41-60 Minor surgery BMI > 25 kg/m2 Swollen legs Varicose veins or History of unexplained or recurrent spontaneous Oral contraceptives or hormone replacement Sepsis (< 1 month) Serious lung disease, including pneumonia (< 1 month) Abnormal pulmonary function Acute myocardial infarction Congestive heart failure (< 1 month) History of inflammatory bowel disease Medical patient at bed rest Age 61-74 Arthroscopic surgery Major open surgery (> 45 min) Laparoscopic surgery (> 45 min) Malignancy Confined to bed (> 72 hours) Immobilizing plaster cast Central venous access Age >= 75 History of VTE Family history of VTE Factor V Leiden Prothrombin [id number] Lupus anticoagulant Anticardiolipin antibodies Elevated serum homocysteine Heparin-induced thrombocytopenia Other congenital or acquired thrombophilia Stroke (< 1 month) Elective arthroplasty Hip, pelvis, or leg fracture Acute spinal cord injury (< 1 month) Prophylaxis Regimen: Total Risk Factor Score Risk Level Prophylaxis Regimen 0-1 Low Early ambulation 2 Moderate Order ONE of the following: *Sequential Compression Device (SCD) *Heparin 5000 units SQ BID 3-4 Higher Order ONE of the following medications: *Heparin 5000 units SQ TID *Enoxaparin/Lovenox 40 mg SQ daily (WT < 150 kg, CrCl > 30 mL/min) *Enoxaparin/Lovenox 30 mg SQ daily (WT < 150 kg, CrCl > 10-29 mL/min) *Enoxaparin/Lovenox 30 mg SQ BID (WT < 150 kg, CrCl > 30 mL/min) AND/OR *Sequential Compression Device (SCD) 5 or more Highest Order ONE of the following medications: *Heparin 5000 units SQ TID (Preferred with Epidurals) *Enoxaparin/Lovenox 40 mg SQ daily (WT < 150 kg, CrCl > 30 mL/min) *Enoxaparin/Lovenox 30 mg SQ daily (WT < 150 kg, CrCl > 10-29 mL/min) *Enoxaparin/Lovenox 30 mg SQ BID (WT < 150 kg, CrCl > 30 mL/min) AND *Sequential Compression Device (SCD) Assessment and Plan - Assessment (1) ESRD (end stage renal disease) on dialysis Code(s): N18.6 - End stage renal disease; Z99.2 - Dependence on renal dialysis Status: Acute - Plan RIGHT arm AVG this morning POA for HD anticipate d/c tomorrow (POD#1) Consent obtained. all questions answered. Discharge Planning: tomorrow (POD#1)
[2018-06-14 07:26] LABS: Baso % (Auto) 0.7 % (0.0-2.0); Eos # (Auto) 0.1 th/mm3 (0.0-0.4); Eos % (Auto) 0.9 % (0.0-4.0); Hematocrit 34.5 % (35.0-46.0); Hemoglobin 11.5 gm/dL (11.6-15.3); Lymph # (Auto) 1.3 th/mm3 (1.0-4.8); Lymph % (Auto) 21.1 % (9.0-44.0); Mean Corpuscular HGB Conc 33.3 % (32.0-36.0); Mean Corpuscular Hemoglobin 29.5 pg (27.0-34.0); Mean Corpuscular Volume 88.5 fL (80.0-100.0); Mean Platelet Volume 8.9 fL (7.0-11.0); Mono # (Auto) 0.4 th/mm3 (0.0-0.9); Mono % (Auto) 5.9 % (0.0-8.0); Neut # (Auto) 4.3 th/mm3 (1.8-7.7); Neut % (Auto) 71.4 % (16.0-70.0); Platelet Count 257 th/mm3 (150-450); Red Cell Distribution Width 16.9 % (11.6-17.2); White Blood Count 6.1 th/mm3 (4.0-11.0)
[2018-06-14] MEDS ORDERED: Famotidine PF Inj 20 MG/2 ML Vial ONE (07:27)
[2018-06-14 07:36] LABS: INR 0.9 Ratio
[2018-06-14 07:42] LABS: Prothrombin Time 9.6 sec (9.8-11.6)
[2018-06-14 08:26] LABS: Calcium 8.4 mg/dL (8.5-10.1); Carbon Dioxide 22.5 meq/L (21.0-32.0)
[2018-06-14 08:27] LABS: Potassium 4.2 meq/L (3.5-5.1)
[2018-06-14] MEDS: Heparin/NS PF Inj 500 ML ONE ×2 (08:54→17:06)
[2018-06-14] MEDS: Bupivacaine PF 0.5% Inj 30 ML Vial ONE ×2 (08:55→17:06)
[2018-06-14] MEDS: Thrombin Topical 20,000 UNIT Spray Kit TOPICAL ONE ×2 (08:55→17:06)
--- NOTE | 2018-06-14 09:41 | P.OP ---
- Preoperative Diagnosis (1) ESRD (end stage renal disease) on dialysis - Postoperative Diagnosis (1) ESRD (end stage renal disease) on dialysis Date of procedure: 06/14/18 Procedure: R brach-ax with PTFE Implants: 6mm PTFE Anesthesia: GETA Surgeon: Linwood Luna MD Fitness Coach: Mila Ortiz Estimated blood loss (mL): 30 IV fluids (mL): 350 Pathology: none sent Operation and Findings: 4mm artery; 5mm vein + thrill after AVG completion + Doppler radial signal
[2018-06-14] MEDS ORDERED: Bisacodyl 10 MG Supp RECTAL PRN (09:42)
[2018-06-14] MEDS ORDERED: ALBUTEROL INHALATION PRN (09:45)
[2018-06-14] MEDS ORDERED: cloNIDine Susp (NICU) 20 MCG/ML 30 ML Bottle PO PRN (09:45)
--- NOTE | 2018-06-14 10:11 | MP ---
cc: Linwood Luna MD DATE OF OPERATION: 06/14/2018 PREOPERATIVE DIAGNOSIS: End-stage renal disease, need for hemodialysis access. POSTOPERATIVE DIAGNOSIS: End-stage renal disease, need for hemodialysis access. PROCEDURE PERFORMED: Right brachial artery to axillary vein arteriovenous graft with 6 mm PTFE. ATTENDING SURGEON: Linwood Luna MD OVERLOCK ELASTIC ATTACHER SURGEON: Amaury Ortiz ANESTHESIA: General. INDICATIONS: Mrs. Maynard is a 67-year-old lady who has end-stage renal disease and needs dialysis access. Preoperative imaging suggested she had no autogenous veins and she was taken to the operating room for a synthetic access creation in her right arm. DESCRIPTION OF PROCEDURE: Informed consent was obtained from the patient. She was taken to the operating room and placed supine on the operating table. Appropriate timeout was taken to ensure the patient's identity, the operative site and planned procedure. A gram of vancomycin was initiated prior to skin incision and will be discontinued after a single preoperative dose. Vancomycin was chosen because of the patient's end-stage renal disease. Everyone in the room agreed with the timeout and we proceeded. Her right arm was prepped and draped. An incision made in the antecubitum and carried down to the subcutaneous tissue with electrocautery. The brachial artery was identified and dissected free for several centimeters. Then an incision made in the axilla, carried down through the subcutaneous tissue with electrocautery. The axillary vein was identified and dissected free for several centimeters. A tunneler was made between these 2 with a curvilinear tunnel and a 6 mm PTFE graft was passed through this taking caution not to twist it. The patient was systemically heparinized with 3000 units of IV heparin. Proximal and distal control of the brachial artery was obtained with profunda clamps and a longitudinal arteriotomy was made with an 11 blade and extended with Slim scissors. The graft was spatulated and sewn end-to-side to the brachial artery with a running 6-0 Prolene suture. At the completion, it was flushed and noted to be hemostatic. A Khai Softjaw was placed on the graft and Surgicel was placed around the anastomosis. Proximal and distal control of the vein was obtained with profunda clamps with a longitudinal venotomy made with an 11 blade and extended with [place] scissors. The graft was cut to an appropriate length, spatulated and sewn end-to-side with running 5-0 Prolene suture. At the completion, it was flushed and noted to be hemostatic. There was a nice thrill in the fistula and a Doppler signal in the wrist. The heparin was reversed with protamine. The wounds were irrigated and infiltrated with Marcaine and the wounds were closed with 2-0 Polysorb, 3-0 Polysorb and 4-0 Monocryl. I was present and scrubbed for hamlin and critical portions. MD SHIREEN Kern/DEANGELO , 09:49 AM , 10:10 AM MTDChris
[2018-06-14] MEDS ORDERED: fentaNYL Citrate Inj 100 MCG/2 ML Ampul ONE (10:23)
[2018-06-14] MEDS ORDERED: *morphine SULFATE 4 MG/ML PERIprocedure ONLY ONE (12:28)
[2018-06-14] MEDS ORDERED: Dextrose 50% in Water 50 ML Vial IV.PUSH PRN ×2 (13:37→18:17)
[2018-06-14] MEDS ORDERED: Phenylephrine/NS 1000 MCG/10ML Syringe IV.PUSH ONE (14:26)
[2018-06-14] MEDS ORDERED: Neostigmine Inj 5 MG/5 ML Syringe IV.PUSH ONE (14:26)
[2018-06-14] MEDS ORDERED: Glycopyrrolate Inj 1 MG/5 ML Syringe IV.PUSH ONE (14:26)
[2018-06-14] MEDS ORDERED: Lidocaine PF 1% Inj 5 ML Syringe INFILTRATN ONE (14:26)
[2018-06-14] MEDS ORDERED: Sod Chloride 0.9% Inj 1,000 ML OTHER PRN ×2 (14:51)
[2018-06-14] MEDS ORDERED: Sod Chloride 0.9% Inj 1,000 ML IV.CONT PRN (14:51)
[2018-06-14] MEDS ORDERED: Albumin Human 25% Inj 100 ML IV.SIG PRN (14:51)
[2018-06-14] MEDS ORDERED: Heparin 10,000 UNITS/10 ML Vial (for IV use) OTHER PRN (14:51)
[2018-06-14] MEDS ORDERED: Gelatin 12 MM/7 MM Topical Foam TOPICAL PRN (14:51)
[2018-06-14] MEDS ORDERED: Acetaminophen 325 MG Tablet PO PRN (14:51)
[2018-06-14] MEDS ORDERED: Heparin 10,000 UNITS/10 ML Vial (for IV use) IV.FLUSH PRN (14:51)
--- NOTE | 2018-06-14 15:05 | P.CONNP ---
<Jessica Clemons - Last Filed: 06/14/18 14:47> History of Present Illness Service: Nephrology Consult date: 06/14/18 Requesting Physician: Linwood Luna Reason for Consult: End stage renal disease on hemodialysis Primary Care Provider: NICHOLAS Benoit Family Provider: NICHOLAS Benoit Chief Complaint: AVF placement History of Present Illness: This is a 67-year-old female with history of CHF, COPD, CAD, diabetes, and end- stage renal disease, on hemodialysis Mondays, Wednesdays and Fridays. Admitted per vascular for right AVF. Nephrology is consulted for end stage renal disease on hemodialysis. Last hemodialysis on Wednesday tolerated well. Plan for discharge after hemodialysis tomorrow. Review of Systems Cardiovascular: Denies chest pain, Denies shortness of breath Respiratory: Denies cough Gastrointestinal: Denies abdominal pain, Denies nausea, Denies vomiting Genitourinary: Denies painful urination Musculoskeletal: Reports back pain PMFSH - History History Provided By: Patient - Medical History Medical History: Medical History (Last Reviewed 06/14/18 @ 07:08 by Linwood Luna MD) Anemia CAD (coronary artery disease) CHF (congestive heart failure) COPD (chronic obstructive pulmonary disease) Diabetes ESRD (end stage renal disease) on dialysis Hyperkalemia Hypoxia - Surgical History Surgical History: Surgical History (Last Reviewed 06/14/18 @ 07:08 by Linwood Luna MD) H/O: History of tonsillectomy Hx of appendectomy Hx of heart artery stent - Family History Family History: Family History (Last Updated 06/03/18 @ 16:29 by Kamini Villarreal) Other No pertinent family history - Tobacco History Second Hand Smoke Exposure: No Smoking Status: Former smoker Tobacco Type: Cigarettes - Alcohol History How Often Do You Have a Drink Containing Alcohol: Never - Substance Use History Substance History: No History of Abuse - Travel History Recent Travel in the [place] Within the Last 8 Weeks: No Recent Travel Out of the Country Within the Last 8 Weeks: No Medications and Allergies Allergies Allergy/AdvReac Type Severity Reaction Status Date / Time propoxyphene Allergy Intermediate RASH Verified 06/14/18 06:23 Home Medications Medication Instructions Recorded Confirmed Type albuterol sulfate [Ventolin HFA] 2 puff INHALATION Q6H PRN 06/03/18 06/14/18 History aspirin 81 mg PO DAILY 06/03/18 06/14/18 History atorvastatin 40 mg PO HS 06/03/18 06/14/18 History budesonide-formoterol [Symbicort] 2 puff INHALATION BID 06/03/18 06/14/18 History carvedilol 6.25 mg PO BID 06/03/18 06/14/18 History clonidine HCl [Catapres] 0.1 mg PO TID PRN 06/03/18 06/14/18 History doxazosin 2 mg PO DAILY 06/03/18 06/14/18 History ferrous sulfate 325 mg PO DAILY 06/03/18 06/14/18 History furosemide 40 mg PO DAILY 06/03/18 06/14/18 History hydralazine 50 mg PO TID 06/03/18 06/14/18 History isosorbide mononitrate 60 mg PO DAILY 06/03/18 06/14/18 History nifedipine 30 mg PO BID 06/03/18 06/14/18 History Active Medications: Active Medications Aspirin (Aspirin Chew) 81 mg PO DAILY [facility] Atorvastatin Calcium (Lipitor) 40 mg PO HS [facility] Bisacodyl (Dulcolax Supp) 10 mg RECTAL DAILY PRN PRN Reason: SEVERE CONSITIPATION Budesonide/Formoterol Fumarate (Symbicort 160/4.5 Mcg Inh) 2 puff INH BID [facility] Carvedilol (Coreg) 6.25 mg PO BID [facility] Chlorhexidine Gluconate (Chlorhexidine 2% Cloth) 3 pack [employer] [facility] Stop: 06/17/18 06:17 Clonidine HCl (Clonidine (Nicu) 20 Mcg/Ml Liq) 100 mcg PO TID PRN PRN Reason: Respiratory Distress Dextrose (D50w Vial) 50 ml IV.PUSH UNSCH PRN PRN Reason: PER HYPOGLYCEMIA PROTOCOL Doxazosin Mesylate (Cardura) 2 mg PO DAILY [facility] Famotidine (Pepcid) 10 mg PO BID [facility] Ferrous Sulfate (Ferosul) 325 mg PO DAILY [facility] Furosemide (Lasix) 40 mg PO DAILY [facility] Glucagon (Glucagon Inj) 1 mg OTHER PRN PRN PRN Reason: for Hypoglycemia Protocol Heparin Sodium (Porcine) (Heparin Inj) 5,000 units SQ Q8H [facility] Hydralazine HCl (Apresoline) 50 mg PO TID [facility] Hydromorphone HCl (Dilaudid) 2 mg PO Q4H PRN PRN Reason: PAIN SCALE 6 TO 10 Lactated Ringer's (Lr 1000 Ml Inj) 1,000 mls @ 30 mls/hr IV.SIG .Q24H [facility] Stop: 06/17/18 06:17 Sodium Chloride (Ns Inj) 500 mls @ 30 mls/hr IV.SIG .Q10H [facility] Stop: 06/17/18 06:17 Insulin Detemir (Levemir Inj) 5 unit SQ BID [facility] Insulin Human Regular (Novolin R Correctional Sugar Inj) 0 units SQ [employer] [facility] ; Protocol Stop: 06/17/18 06:17 Isosorbide Mononitrate (Imdur) 60 mg PO DAILY [facility] Lactulose (Lactulose Liq) 30 ml PO DAILY PRN PRN Reason: SEVERE CONSITIPATION Metoprolol Tartrate (Lopressor) 25 mg PO [employer] [facility] Stop: 06/17/18 06:17 Miscellaneous Information ([facility]) 1 each OTHER UNSCH PRN PRN Reason: SEE LABEL COMMENTS Stop: 06/15/18 10:16 Non-Formulary Medication (Albuterol Hfa Inh) 2 puff INHALATION Q6H PRN PRN Reason: Shortness Of Breath Oxycodone HCl (Roxicodone) 5 mg PO Q4H PRN PRN Reason: PAIN SCALE 1 TO 5 Povidone Iodine (Betadine 5% Antisepsis Kit) 1 applicatio EACH [employer] [facility] Stop: 06/17/18 06:17 Senna/Docusate Sodium (Jocelyn-Colace) 1 tab PO BID [facility] Sennosides (Senokot) 17.2 mg PO Q12H PRN PRN Reason: Moderate Constipation Exam Vital signs: Vital Signs 06/14/18 06:49 06/14/18 10:18 Temperature 97.9 F Pulse Rate 63 Respiratory Rate 18 Blood Pressure 169/83 H Pulse Oximetry 96 100 Intake & Output 06/13/18 06/14/18 06/14/18 18:59 06:59 18:59 Intake Total 350 / 350 Output Total 30 / 30 Balance 320 / 320 Weight 77 kg Intake: Anesthesia Amount 350 / 350 Output: Estimated Blood Loss 30 / 30 Other: Weight On Admission 77 kg - Constitutional no acute distress - Routine HEENT Exam Head: Present: normocephalic ENT: Present: mucous membranes moist - Routine Neck Exam Present: supple. Absent: JVD - Routine Respiratory Exam Present: decreased breath sounds. Absent: rales, rhonchi - Routine Cardiovascular Exam Present: RRR - Routine Abdominal Exam Present: soft, normoactive bowel sounds - Routine Extremities Exam Present: edema Comments: dependent edema - Routine Skin Exam Present: dry, warm - Routine Neurological Exam Present: alert, oriented X3 Results - Lab Results 06/14/18 06:55 06/14/18 07:45 Most recent lab results Calcium 8.4 mg/dL (8.5-10.1) L 06/14/18 07:45 Assessment and Plan - Assessment (1) ESRD (end stage renal disease) on dialysis Code(s): N18.6 - End stage renal disease; Z99.2 - Dependence on renal dialysis Status: Acute Plan: ESRD on hemodialysis Wednesday/Wednesday/Wednesday via permacath S/p right arm AVG this morning Plans for hemodialysis tomorrow and then discharge Orders placed (2) Diabetes Code(s): E11.9 - Type 2 diabetes mellitus without complications Status: Acute Plan: Maintain blood sugar between 140 mg/dl to 180 mg/dl (3) Hypertension Code(s): I10 - Essential (primary) hypertension Status: Acute Plan: Will monitor, home medications have been resumed. <[place] - Last Filed: 06/15/18 15:25> History of Present Illness Primary Care Provider: NICHOLAS Benoit Family Provider: NICHOLAS Benoit [facility] - Medical History Medical History: Medical History (Last Reviewed 06/14/18 @ 07:08 by Linwood Luna MD) Anemia CAD (coronary artery disease) CHF (congestive heart failure) COPD (chronic obstructive pulmonary disease) Diabetes ESRD (end stage renal disease) on dialysis Hyperkalemia Hypoxia - Surgical History Surgical History: Surgical History (Last Reviewed 06/14/18 @ 07:08 by Linwood Luna MD) H/O: History of tonsillectomy Hx of appendectomy Hx of heart artery stent - Family History Family History: Family History (Last Updated 06/03/18 @ 16:29 by Kamini Villarreal) Other No pertinent family history Exam Vital signs: Vital Signs 06/14/18 20:00 06/14/18 20:30 06/15/18 00:00 Temperature 97.6 F 97.6 F Pulse Rate 90 90 65 Respiratory Rate 17 19 Blood Pressure 143/67 H 141/63 H Pulse Oximetry 98 98 06/15/18 03:28 06/15/18 07:50 06/15/18 08:00 Temperature 97.8 F Pulse Rate 65 72 Respiratory Rate 16 Blood Pressure 146/65 H Pulse Oximetry 96 97 06/15/18 11:00 06/15/18 12:00 06/15/18 13:00 Temperature 97.8 F Pulse Rate 79 81 80 Respiratory Rate 16 Blood Pressure 149/67 H Pulse Oximetry 99 06/15/18 14:00 Temperature Pulse Rate 80 Respiratory Rate Blood Pressure Pulse Oximetry Intake & Output 06/14/18 06/15/18 06/15/18 18:59 06:59 18:59 Intake Total 710 / 710 240 / 240 Output Total 30 / 30 150 / 150 2500 / 2500 Balance 680 / 680 90 / 90 -2500 / -2500 Intake: Oral 360 / 360 240 / 240 Anesthesia Amount 350 / 350 Output: Urine 150 / 150 Hemodialysis Amount 2500 / 2500 Estimated Blood Loss 30 / 30 Results - Lab Results 06/15/18 03:09 06/15/18 03:09 Most recent lab results Calcium 8.6 mg/dL (8.5-10.1) 06/15/18 03:09 Assessment and Plan - Assessment (1) ESRD (end stage renal disease) on dialysis Code(s): N18.6 - End stage renal disease; Z99.2 - Dependence on renal dialysis Status: Acute (2) Diabetes Code(s): E11.9 - Type 2 diabetes mellitus without complications Status: Acute (3) Hypertension Code(s): I10 - Essential (primary) hypertension Status: Acute - Attending Attestation Patient seen and examine in recovery room, agree with above. Post AVG, BP is stable. HD will be in AM, possible D/C tomorrow.
[2018-06-14] MEDS: hydrALAZINE 50 MG Tablet PO SCH ×2 (17:11→17:58)
[2018-06-14] MEDS: Insulin NovoLIN Regular Correctional Sugar Inj SQ SCH ×2 (18:40→21:56)
[2018-06-14] MEDS: Senna/Docusate Sodium 8.6/50 MG Tablet PO SCH (21:54)
[2018-06-14] MEDS: Famotidine 20 MG Tablet PO SCH (21:54)
[2018-06-14] MEDS: Carvedilol 6.25 MG Tablet PO SCH (21:55)
[2018-06-14] MEDS: Insulin Detemir Inj 1,000 UNIT/10 ML Vial SQ SCH (21:55)
[2018-06-14] MEDS: Budesonide-Formoterol 160/4.5 MCG 6 GM Inhaler INH SCH (21:58)
[2018-06-15 03:27] LABS: Hematocrit 35.7 % (35.0-46.0); Hemoglobin 11.6 gm/dL (11.6-15.3); Mean Corpuscular HGB Conc 32.4 % (32.0-36.0); Mean Corpuscular Hemoglobin 29.3 pg (27.0-34.0); Mean Corpuscular Volume 90.6 fL (80.0-100.0); Mean Platelet Volume 8.6 fL (7.0-11.0); Platelet Count 235 th/mm3 (150-450); Red Blood Count 3.94 mil/mm3 (4.00-5.30); Red Cell Distribution Width 16.6 % (11.6-17.2); White Blood Count 6.8 th/mm3 (4.0-11.0)
[2018-06-15 03:49] LABS: Calcium 8.6 mg/dL (8.5-10.1); Carbon Dioxide 23.3 meq/L (21.0-32.0); Potassium 4.8 meq/L (3.5-5.1)
--- NOTE | 2018-06-15 07:06 | P.PNVS ---
Subjective Post Op Day #: 1 Procedure: R UE brach-ax with PTFE Subjective/Hospital Course: doing great, pain controlled no c/o hand troubles glenna po notes dilaudid works for incisional pain Objective Vital Signs / I&O: Vital Signs 06/14/18 10:18 06/14/18 10:30 06/14/18 10:45 Temperature 97.9 F Pulse Rate 70 63 66 Respiratory Rate Blood Pressure 186/72 H 173/55 H 186/65 H Pulse Oximetry 95 95 96 06/14/18 11:00 06/14/18 11:15 06/14/18 12:15 Temperature Pulse Rate 64 65 Respiratory Rate Blood Pressure 172/79 H 162/72 H Pulse Oximetry 100 100 06/14/18 13:15 06/14/18 14:15 06/14/18 15:00 Temperature 97.6 F Pulse Rate 65 Respiratory Rate 16 Blood Pressure 159/70 H Pulse Oximetry 100 100 100 06/14/18 20:00 06/14/18 20:30 06/15/18 00:00 Temperature 97.6 F 97.6 F Pulse Rate 90 90 65 Respiratory Rate 17 19 Blood Pressure 143/67 H 141/63 H Pulse Oximetry 98 98 06/15/18 03:28 Temperature Pulse Rate 65 Respiratory Rate Blood Pressure Pulse Oximetry Intake & Output 06/14/18 06/15/18 06/15/18 18:59 06:59 18:59 Intake Total 710 / 710 Output Total 30 / 30 Balance 680 / 680 Intake: Oral 360 / 360 Anesthesia Amount 350 / 350 Output: Estimated Blood Loss 30 / 30 Exam: alert, no distress R UE incisions c/d/i + ecchymoses + thrill good hand strength Laboratory Results - last 24 hr 06/14/18 06/14/18 06/14/18 06:55 06:55 06:55 WBC 6.1 RBC 3.90 L Hgb 11.5 L Hct 34.5 L MCV 88.5 MCH 29.5 MCHC 33.3 RDW 16.9 Plt Count 257 D MPV 8.9 Neut % (Auto) 71.4 H Lymph % (Auto) 21.1 Graves % (Auto) 5.9 Eos % (Auto) 0.9 Baso % (Auto) 0.7 Neut # (Auto) 4.3 Lymph # (Auto) 1.3 Graves # (Auto) 0.4 Eos # (Auto) 0.1 Baso # (Auto) 0.0 WBC Differential . Differential Comment Auto diff final PT 9.6 L INR 0.9 Sodium Potassium Chloride Carbon Dioxide Anion Gap BUN Creatinine Estimated GFR POC Glucose Random Glucose Calcium Blood Type B Negative Antibody Screen Negative 06/14/18 06/14/18 06/14/18 07:45 10:36 17:48 WBC RBC Hgb Hct MCV MCH MCHC RDW Plt Count MPV Neut % (Auto) Lymph % (Auto) Graves % (Auto) Eos % (Auto) Baso % (Auto) Neut # (Auto) Lymph # (Auto) Graves # (Auto) Eos # (Auto) Baso # (Auto) WBC Differential Differential Comment PT INR Sodium 138 Potassium 4.2 Chloride 104 Carbon Dioxide 22.5 Anion Gap 12 BUN 31 H Creatinine 2.03 H Estimated GFR 25 L POC Glucose 162 H 271 H Random Glucose 201 H Calcium 8.4 L Blood Type Antibody Screen 06/14/18 06/15/18 06/15/18 21:36 03:09 03:09 WBC 6.8 RBC 3.94 L Hgb 11.6 Hct 35.7 MCV 90.6 MCH 29.3 MCHC 32.4 RDW 16.6 Plt Count 235 MPV 8.6 Neut % (Auto) Lymph % (Auto) Graves % (Auto) Eos % (Auto) Baso % (Auto) Neut # (Auto) Lymph # (Auto) Graves # (Auto) Eos # (Auto) Baso # (Auto) WBC Differential Differential Comment PT INR Sodium 136 Potassium 4.8 Chloride 104 Carbon Dioxide 23.3 Anion Gap 9 BUN 35 H Creatinine 2.24 H Estimated GFR 22 L POC Glucose 306 H Random Glucose 164 H Calcium 8.6 Blood Type Antibody Screen Assessment and Plan - Assessment (1) ESRD (end stage renal disease) on dialysis Code(s): N18.6 - End stage renal disease; Z99.2 - Dependence on renal dialysis Status: Acute - Plan POD#1 s/p R UE AVG graft patent, good thrill hand ok 1. HD this morning 2. D/C after HD Discharge Planning: today after HD
[2018-06-15] MEDS: Insulin Detemir Inj 1,000 UNIT/10 ML Vial SQ SCH (08:22)
[2018-06-15] MEDS: Famotidine 20 MG Tablet PO SCH (08:23)
[2018-06-15] MEDS: Carvedilol 6.25 MG Tablet PO SCH (08:23)
[2018-06-15] MEDS: Insulin NovoLIN Regular Correctional Sugar Inj SQ SCH ×2 (08:24→12:21)
[2018-06-15] MEDS: hydrALAZINE 50 MG Tablet PO SCH ×2 (08:24→13:03)
[2018-06-15] MEDS: Senna/Docusate Sodium 8.6/50 MG Tablet PO SCH (08:25)
[2018-06-15] MEDS: Budesonide-Formoterol 160/4.5 MCG 6 GM Inhaler INH SCH (08:25)
[2018-06-15] MEDS ORDERED: Ferrous Sulfate 325 MG Tablet PO SCH (09:00)
[2018-06-15] MEDS ORDERED: Isosorbide Mononitrate 60 MG ER 24HR Tablet (Imdur) PO SCH (09:00)
[2018-06-15] MEDS ORDERED: Furosemide 40 MG Tablet PO SCH (09:00)
--- NOTE | 2018-06-15 09:30 | P.PNNP ---
Subjective Interval history: In good spirits. Pain is well controlled. S/P AVG yesterday. Seen during dialysis. <Jessica Clemons - Last Filed: 06/15/18 09:26> Physical Exam Vital signs: Vital Signs 06/14/18 10:18 06/14/18 10:30 06/14/18 10:45 Temperature 97.9 F Pulse Rate 70 63 66 Respiratory Rate Blood Pressure 186/72 H 173/55 H 186/65 H Pulse Oximetry 95 95 96 06/14/18 11:00 06/14/18 11:15 06/14/18 12:15 Temperature Pulse Rate 64 65 Respiratory Rate Blood Pressure 172/79 H 162/72 H Pulse Oximetry 100 100 06/14/18 13:15 06/14/18 14:15 06/14/18 15:00 Temperature 97.6 F Pulse Rate 65 Respiratory Rate 16 Blood Pressure 159/70 H Pulse Oximetry 100 100 100 06/14/18 20:00 06/14/18 20:30 06/15/18 00:00 Temperature 97.6 F 97.6 F Pulse Rate 90 90 65 Respiratory Rate 17 19 Blood Pressure 143/67 H 141/63 H Pulse Oximetry 98 98 06/15/18 03:28 Temperature Pulse Rate 65 Respiratory Rate Blood Pressure Pulse Oximetry Intake & Output 06/14/18 06/15/18 06/15/18 18:59 06:59 18:59 Intake Total 710 / 710 240 / 240 Output Total 30 / 30 150 / 150 Balance 680 / 680 90 / 90 Intake: Oral 360 / 360 240 / 240 Anesthesia Amount 350 / 350 Output: Urine 150 / 150 Estimated Blood Loss 30 / 30 - Constitutional no acute distress - Routine HEENT Exam Head: Present: normocephalic ENT: Present: mucous membranes moist - Routine Neck Exam Present: supple. Absent: JVD - Routine Respiratory Exam Present: CTA bilaterally. Absent: rales, rhonchi - Routine Cardiovascular Exam Present: RRR - Routine Abdominal Exam Present: soft, normoactive bowel sounds - Routine Extremities Exam Present: edema, AV fistula, vascular access - Routine Skin Exam Present: dry, warm - Routine Neurological Exam Present: alert, oriented X3 - Routine Psychiatric Exam Present: cooperative <Jessica Clemons - Last Filed: 06/15/18 09:26> Vital signs: Vital Signs 06/14/18 20:00 06/14/18 20:30 06/15/18 00:00 Temperature 97.6 F 97.6 F Pulse Rate 90 90 65 Respiratory Rate 17 19 Blood Pressure 143/67 H 141/63 H Pulse Oximetry 98 98 06/15/18 03:28 06/15/18 07:50 06/15/18 08:00 Temperature 97.8 F Pulse Rate 65 72 Respiratory Rate 16 Blood Pressure 146/65 H Pulse Oximetry 96 97 06/15/18 11:00 06/15/18 12:00 06/15/18 13:00 Temperature 97.8 F Pulse Rate 79 81 80 Respiratory Rate 16 Blood Pressure 149/67 H Pulse Oximetry 99 06/15/18 14:00 Temperature Pulse Rate 80 Respiratory Rate Blood Pressure Pulse Oximetry Intake & Output 06/14/18 06/15/18 06/15/18 18:59 06:59 18:59 Intake Total 710 / 710 240 / 240 Output Total 30 / 30 150 / 150 2500 / 2500 Balance 680 / 680 90 / 90 -2500 / -2500 Intake: Oral 360 / 360 240 / 240 Anesthesia Amount 350 / 350 Output: Urine 150 / 150 Hemodialysis Amount 2500 / 2500 Estimated Blood Loss 30 / 30 <Des Toro - Last Filed: 06/15/18 15:21> Assessment and Plan - Assessment (1) ESRD (end stage renal disease) on dialysis Code(s): N18.6 - End stage renal disease; Z99.2 - Dependence on renal dialysis Status: Acute Plan: ESRD on hemodialysis Wednesday/Wednesday/Wednesday via permacath S/p right arm AVG Seen during hemodialysis, 2K bath will remove fluid as tolerated. Plans for discharge home today (2) Diabetes Code(s): E11.9 - Type 2 diabetes mellitus without complications Status: Acute Plan: Maintain blood sugar between 140 mg/dl to 180 mg/dl (3) Hypertension Code(s): I10 - Essential (primary) hypertension Status: Acute Plan: Will monitor, home medications have been resumed. <Jessica Clemons - Last Filed: 06/15/18 09:26> - Assessment (1) ESRD (end stage renal disease) on dialysis Code(s): N18.6 - End stage renal disease; Z99.2 - Dependence on renal dialysis Status: Acute (2) Diabetes Code(s): E11.9 - Type 2 diabetes mellitus without complications Status: Acute (3) Hypertension Code(s): I10 - Essential (primary) hypertension Status: Acute - Attending Attestation Patient was admitted for AVF. HD done and for discharge. To continue HD, MWF. <Des Toro - Last Filed: 06/15/18 15:21>
--- NOTE | 2018-06-15 09:34 | P.DS ---
Discharge Summary - Admission Date 06/14/18 09:42 - Discharge Date 06/15/18 - Summary Brief History from admission: 67 yo female with ESRD on HD MWF via R chest catheter. [facility] HD yesterday. Presents for AVF - no autogenous options, L handed. Going to OR for RIGHT UE prosthetic access. Procedure: R UE brach-ax with PTFE Significant Findings: + thrill Pt w/o hand pain Palpable R radial pulse Abnormal Lab Results 06/14/18 06/14/18 06/14/18 10:36 17:48 21:36 WBC RBC Hgb Hct MCV MCH MCHC RDW Plt Count MPV Sodium Potassium Chloride Carbon Dioxide Anion Gap BUN Creatinine Estimated GFR POC Glucose 162 H 271 H 306 H Random Glucose Calcium 06/15/18 06/15/18 06/15/18 03:09 03:09 08:20 WBC 6.8 RBC 3.94 L Hgb 11.6 Hct 35.7 MCV 90.6 MCH 29.3 MCHC 32.4 RDW 16.6 Plt Count 235 MPV 8.6 Sodium 136 Potassium 4.8 Chloride 104 Carbon Dioxide 23.3 Anion Gap 9 BUN 35 H Creatinine 2.24 H Estimated GFR 22 L POC Glucose 96 Random Glucose 164 H Calcium 8.6 Hospital Course: 67 yo female with ESRD on HD MWF via R chest catheter. Presents for AVF - no autogenous options, L handed. Pt s/p R UE brach-ax with PTFE POD 1 Pt doing well No hand pain + thrill Pain controlled Pt clear for D/c post HD Arranged out pt f/u E-forcse reviewed- Rx post operative pain medication for 3D - Discharge Instructions DIET Your may resume a Dialysis/Diabetic Diet ACTIVITY Activity as tolerated No heavy lifting over a gallon of milk for 10 days No B/P readings or lab draws- RIGHT arm NO tub baths or swimming until your incision is fully healed WOUND CARE Leave your incision open to air You may apply a dry dressing (4x4 then tape) if drainage is present Do not apply any creams or ointments as it may loosen the surgical glue Call the office to report an increase in pain, swelling, drainage or redness MEDICATIONS You may resume your daily home medications You were prescribed a narcotic pain medication which can cause constipation- Take with an over the counter stool softener You were prescribed a narcotic pain medication which can cause drowsiness- No driving while taking this medication Any questions or concerns: Call [facility] at [facility] [phone] Discharge Plan - Discharge Disposition Patient Disposition: 01 Discharge Home - Discharge Condition Condition: Good - Discharge Order Discharge Orders: Discharge Order (Routine); Ordered 06/15/18 Ordered By: Erica Mg - Discharge Details Anticipated Discharge Date: 06/15/18 Discharge Comment: D/C post HD - Physicians Team Primary Care Provider: Ilsa Treviño Attending Provider: Linwood Luna Other Providers: Des Toro MD - Rxs /Orders / Referrals /Forms Prescriptions: New hydrocodone-acetaminophen [[place]] 5-325 mg Tablet 1 tab PO Q4H PRN (Reason: Pain) 3 Days Qty: 18 RF: 0 Continue albuterol sulfate [Ventolin HFA] 90 mcg/actuation Hfa Aerosol Inhaler 2 puff INHALATION Q6H PRN (Reason: Shortness Of Breath) aspirin 81 mg Tablet,Delayed Release (Dr/Ec) 81 mg PO DAILY atorvastatin 40 mg Tablet 40 mg PO HS budesonide-formoterol [Symbicort] 160-4.5 mcg/actuation Hfa Aerosol Inhaler 2 puff INHALATION BID carvedilol 6.25 mg Tablet 6.25 mg PO BID clonidine HCl [Catapres] 0.1 mg Tablet 0.1 mg PO TID PRN (Reason: Respiratory Distress) doxazosin 2 mg Tablet 2 mg PO DAILY ferrous sulfate 325 mg (65 mg iron) Tablet 325 mg PO DAILY furosemide 40 mg Tablet 40 mg PO DAILY hydralazine 50 mg Tablet 50 mg PO TID insulin detemir U-100 [Levemir U-100 Insulin] 100 unit/mL Solution 5 unit Sub-Q BID Qty: 1 RF: 0 isosorbide mononitrate 60 mg Tablet Extended Release 24 Hr 60 mg PO DAILY Lactobacillus acidophilus Capsule 500 mmu cells PO TID Qty: 30 RF: 0 nifedipine 30 mg Tablet Extended Release 30 mg PO BID Referrals: Ilsa Treviño ARNP [Primary Care Provider] - See Instructions Linwood Luna MD [Physician] - See Instructions (Your post op follow up appointment is on 07/08/18 at 8:15) - Discharge Instructions Additional Instructions: DIET Your may resume a Dialysis/Diabetic Diet ACTIVITY Activity as tolerated No heavy lifting over a gallon of milk for 10 days No B/P readings or lab draws- RIGHT arm NO tub baths or swimming until your incision is fully healed WOUND CARE Leave your incision open to air You may apply a dry dressing (4x4 then tape) if drainage is present Do not apply any creams or ointments as it may loosen the surgical glue Call the office to report an increase in pain, swelling, drainage or redness MEDICATIONS You may resume your daily home medications You were prescribed a narcotic pain medication which can cause constipation- Take with an over the counter stool softener You were prescribed a narcotic pain medication which can cause drowsiness- No driving while taking this medication
[2018-06-15] MEDS ORDERED: Heparin - SQ 10,000 UNITS/ML Vial SQ SCH (10:00)
== END 2018-06-15 14:27 | disposition home or self-care (01) ==
LOC: HSDC 05:53 → HCPC 05:53 → HSDI 05:53 → HCPC 15:15
PROVIDERS: ADMIT Surgery; ATTEND Surgery
PROC: AVGFTUE (ICD-10-PCS; 2018-06-14 08:19)

== ENCOUNTER 2018-06-27 23:19 | Inpatient (IN) ==
[2018-06-27] MEDS ORDERED: Morphine Inj 4 MG/ML Vial IV.PUSH ONE (23:36)
--- NOTE | 2018-06-27 23:57 | XR ---
EXAM DATE: 06/27/2018 11:53 PM EDT AGE/SEX: 67 years / Female INDICATIONS: Chest pain today. CLINICAL DATA: This is the patient's initial encounter. Patient reports that signs and symptoms have been present for 1 day and indicates a pain score of 4/10. MEDICAL/SURGICAL HISTORY: . Hypercholesterolemia. Myocardial infarction. Chronic obstructive pu lmonary disease. CHF, A-fib. Renal failure. Diabetes. . Laminectomy. Hysterectomy. Tonsillectomy. [place] [facility]. . FINDINGS: A single AP erect view of the chest was obtained and demonstrates interval placement of a right-sided double-lumen central venous line with no pneumothorax. Abnormal opacity remains at the left lung bas e and the left costophrenic angle is blunted. The left hemidiaphragm remains obscured. Right lung is clear. The heart size is at the upper limits of normal. Mild hazy opacity is present in the perihilar regions which is improved from the prior study. The previously noted small right effusion is improve d as well. CONCLUSION: 1. Small to moderate left pleural effusion again noted. Infiltrate may be present as well. 2. Interval placement of right sided double lumen central venous line. Electronically signed by: Nura Niño MD 06/27/2018 11:56 PM EDT
--- NOTE | 2018-06-27 23:58 | ED ---
HPI General Chief complaint: Extremity Problem,Nontraumatic Stated complaint: Pain/Evac Time Seen by Provider: 06/27/18 23:34 Source: patient Limitations: no limitations History of Present Illness HPI narrative: The patient is a 67 year old female who presents to the [facility] emergency department with a history of increased pain, swelling to the right upper extremity that began on Wednesday. The patient reports that she had a dialysis graft placed on June 14. She reports that she has newly been on hemodialysis on Fridays the last 2 months. She currently has a Vas-Cath in place in the right side of her chest for access while the AV fistula matures. She reports that Dr. Toro, her permastone installer saw her on Wednesday and thought that it may be getting infected and started her on Keflex. She reports that she started the first Keflex dose on Wednesday. She reports having a tingling sensation in the right upper extremity. She reports having a clear weeping from the right upper extremity. She reports having 2 small skin tears from bumping the arm that she has been applying a bandage to daily. She reports that because she did not feel well overall today she did not go to her usual dialysis session. Her last dialysis was on Wednesday. She denies having any chest pain, chest pressure, or new shortness of breath. On review of systems otherwise, she denies having fevers, cough, congestion, neck pain, abdominal pain, vomiting, diarrhea, urinary symptoms, or other neurologic symptoms. Patient incidentally also reports having problems with her left eye vision. She reports that she had a retinal hemorrhage status post surgery on June 07. Related Data Home Medications Medication Instructions Recorded Confirmed albuterol sulfate [Ventolin HFA] 2 puff INHALATION Q6H PRN 06/03/18 06/27/18 aspirin 81 mg PO DAILY 06/03/18 06/27/18 atorvastatin 40 mg PO HS 06/03/18 06/27/18 budesonide-formoterol [Symbicort] 2 puff INHALATION BID 06/03/18 06/27/18 carvedilol 6.25 mg PO BID 06/03/18 06/27/18 clonidine HCl [Catapres] 0.1 mg PO TID PRN 06/03/18 06/27/18 doxazosin 2 mg PO DAILY 06/03/18 06/27/18 ferrous sulfate 325 mg PO DAILY 06/03/18 06/27/18 furosemide 40 mg PO DAILY 06/03/18 06/27/18 hydralazine 50 mg PO TID 06/03/18 06/27/18 isosorbide mononitrate 60 mg PO DAILY 06/03/18 06/27/18 nifedipine 30 mg PO BID 06/03/18 06/27/18 Previous Rx's Medication Instructions Recorded Lactobacillus acidophilus 500 mmu cells PO TID #30 cap 06/07/18 insulin detemir U-100 [Levemir 5 unit SUB-Q BID #1 bottle 06/07/18 U-100 Insulin] Allergies Allergy/AdvReac Type Severity Reaction Status Date / Time propoxyphene Allergy Intermediate RASH Verified 06/27/18 23:28 Review of Systems ROS Unobtainable All other systems reviewed negative except as stated in HPI [facility] Family History Family History Other No pertinent family history Social History Social History Substance History: No History of Abuse Second Hand Smoke Exposure: No Smoking Status: Former smoker Tobacco Type: Cigarettes How Often Do You Have a Drink Containing Alcohol: Never Recent Travel in [facility] within the Last 8 Weeks: No Recent Out of Country Travel within the Last 8 Weeks: No Immunization History Tetanus Immunization: Unsure Hx Influenza Vaccine This Season: Yes Exam Const General: cooperative, no acute distress and well developed Nutritional Appearance: well nourished Orientation: alert, awake and oriented x3 HENMT Head: normocephalic and atraumatic Nose: no nasal discharge and no epistaxis Mouth: moist mucous membranes Throat: posterior oropharynx normal Eyes Sclera: normal sclerae Pupils: PERRL Neck Neck: no meningeal signs, trachea midline and no JVD Resp Effort & Inspection: no use of accessory muscles Auscultation: clear to auscultation bilaterally Cardio Rate: regular rate Rhythm: regular rhythm Heart Sounds: no murmurs GI Inspection: non-distended Palpation: soft, no hepatosplenomegaly and nontender Auscultation: normal bowel sounds Skin General: dry skin (warm) Neuro General: alert and awake Cranial Nerves: other Speech: speech normal Motor: no movement abnormalities noted Extrem General: normal to inspection (Except the patient's left lower extremity is slightly larger than the right which she reports is chronic. The patient is also noted to have edema to the right upper extremity. She has [address] that were removed and 2 superficial skin tears were noted along the outer aspect of the right upper extremity. Bandages will be reapplied. The patient has a very subtle thrill over the AV fistula. The patient has a diminished radial pulse on palpation. The patient has good, less than 3 second capillary refill of her fingertips. She reports having tingling sensations of the entire hand. The patient additionally has some subtle erythema right forearm.), no clubbing, no cyanosis and edema Psych Mood: congruent mood Affect: normal affect Judgment: judgment good Course Consultations Consultation #1: The patient's case including history, pertinent physical examination findings, and laboratory studies were discussed with Dr. Koehler. It was agreed that the patient would be admitted to the hospitalist service. Initial Documented Vital Signs Temperature 98.0 F 06/27/18 23:22 Pulse Rate 66 06/27/18 23:22 Respiratory Rate 18 06/27/18 23:22 Pulse Oximetry 100 06/27/18 23:22 Last Documented Vital Signs Temperature 96.9 F L 06/28/18 17:15 Pulse Rate 58 L 06/28/18 17:15 Respiratory Rate 17 06/28/18 17:15 Blood Pressure 150/65 H 06/28/18 17:15 Pulse Oximetry 100 06/28/18 17:53 Medical Decision Making MDM Narrative Medical decision making narrative: During the course of the patient's emergency department visit, the patient's history, examination, and differential diagnosis were reviewed with the patient. The patient was placed on a residential monitor with oximetry and frequent blood pressure monitoring. The patient had IV access obtained and blood work sent for analysis. A diagnostic workup was started regarding the patient's right upper extremity swelling and increased pain. An ultrasound of the right upper extremity was ordered. Laboratory studies revealed a white count of 6, platelets 202, hemoglobin 11.6 with a differential with neutrophil percent 75.4, PT 9.2, PTT 20.5, chemistry is remarkable for a troponin I that is 0.13 which may be elevated related to the patient's renal failure, however this will be monitored during the patient' s admission. Glucose is 293, total protein 5.4, sodium 134, lipase 59, GFR 19, creatinine 2.51, CO2 20.8, BUN 55, BNP 4432, albumin 1.6. Chest x-ray reveals a small to moderate left pleural effusion again noted, infiltrate may be present as well. Ultrasound of the right upper extremity reveals that the AV graft is patent, hematoma/seroma in the right axilla and along the distal brachial artery is noted. Given these findings, the patient will be admitted to the hospital for additional evaluation consultation with Dr. Luna, the vascular surgeon that placed the graft. The patient was initially provided morphine for pain, Reglan for nausea, nitroglycerin 1 inch to the chest wall. The patient was covered with broad- spectrum antibiotic due to a concern for possible cellulitis that is failed outpatient management. The patient was given Zosyn and vancomycin. Differential Diagnosis Differential Diagnosis: Thrombosis of the AV fistula, versus cellulitis, versus DVT Lab Data Result diagrams: 06/27/18 23:44 06/28/18 11:40 Lab Results 06/27/18 06/27/18 06/27/18 Range/Units 23:44 23:44 23:44 WBC 6.0 (4.0-11.0) th/mm3 RBC 3.83 L (4.00-5.30) mil/mm3 Hgb 11.6 (11.6-15.3) gm/dL Hct 35.0 (35.0-46.0) % MCV 91.3 (80.0-100.0) fL MCH 30.2 (27.0-34.0) pg MCHC 33.1 (32.0-36.0) % RDW 17.6 H (11.6-17.2) % Plt Count 202 (150-450) th/mm3 MPV 8.9 (7.0-11.0) fL Neut % (Auto) 75.4 H (16.0-70.0) % Lymph % (Auto) 16.5 (9.0-44.0) % [place] % (Auto) 6.4 (0.0-8.0) % Eos % (Auto) 1.1 (0.0-4.0) % Baso % (Auto) 0.6 (0.0-2.0) % Neut # (Auto) 4.5 (1.8-7.7) th/mm3 Lymph # (Auto) 1.0 (1.0-4.8) th/mm3 [place] # (Auto) 0.4 (0.0-0.9) th/mm3 Eos # (Auto) 0.1 (0.0-0.4) th/mm3 Baso # (Auto) 0.0 (0.0-0.2) th/mm3 WBC Differential . Differential Comment Auto diff final PT 9.2 L (9.8-11.6) sec INR 0.9 Ratio APTT 20.5 L (24.3-30.1) sec Sodium 134 L (136-145) meq/L Potassium 4.7 (3.5-5.1) meq/L Chloride 103 (98-107) meq/L Carbon Dioxide 20.8 L (21.0-32.0) meq/L Anion Gap 10 (5-15) meq/L BUN 55 H (7-18) mg/dL Creatinine 2.51 H (0.50-1.00) mg/dL Estimated GFR 19 L (>89) mL/min POC Glucose (68-110) mg/dl Random Glucose 293 H (74-106) mg/dL Calcium 8.1 L (8.5-10.1) mg/dL Magnesium 1.9 (1.5-2.5) mg/dL Total Bilirubin 0.2 (0.2-1.0) mg/dL AST 22 (15-37) U/L ALT 21 (10-53) U/L Alkaline Phosphatase 186 H (45-117) U/L Total Creatine Kinase 33 (26-192) U/L Troponin I 0.13 H (0.02-0.05) ng/mL B-Natriuretic Peptide (0-100) pg/mL Total Protein 5.4 L (6.4-8.2) g/dL Albumin 1.6 L (3.4-5.0) g/dL Lipase 59 L (73-393) U/L Hepatitis A IgM Ab (Nonreactive) Hep Bs Antigen (Nonreactive) Hep B Core IgM Ab (Nonreactive) Hep C IgG Ab (Nonreactive) 06/27/18 06/28/18 06/28/18 Range/Units 23:44 05:40 07:52 WBC (4.0-11.0) th/mm3 RBC (4.00-5.30) mil/mm3 Hgb (11.6-15.3) gm/dL Hct (35.0-46.0) % MCV (80.0-100.0) fL MCH (27.0-34.0) pg MCHC (32.0-36.0) % RDW (11.6-17.2) % Plt Count (150-450) th/mm3 MPV (7.0-11.0) fL Neut % (Auto) (16.0-70.0) % Lymph % (Auto) (9.0-44.0) % Hamb[place] % (Auto) (0.0-8.0) % Eos % (Auto) (0.0-4.0) % Baso % (Auto) (0.0-2.0) % Neut # (Auto) (1.8-7.7) th/mm3 Lymph # (Auto) (1.0-4.8) th/mm3 Hamblen # (Auto) (0.0-0.9) th/mm3 Eos # (Auto) (0.0-0.4) th/mm3 Baso # (Auto) (0.0-0.2) th/mm3 WBC Differential Differential Comment PT (9.8-11.6) sec INR Ratio APTT (24.3-30.1) sec Sodium (136-145) meq/L Potassium (3.5-5.1) meq/L Chloride (98-107) meq/L Carbon Dioxide (21.0-32.0) meq/L Anion Gap (5-15) meq/L BUN (7-18) mg/dL Creatinine (0.50-1.00) mg/dL Estimated GFR (>89) mL/min POC Glucose 427 H (68-110) mg/dl Random Glucose (74-106) mg/dL Calcium (8.5-10.1) mg/dL Magnesium (1.5-2.5) mg/dL Total Bilirubin (0.2-1.0) mg/dL AST (15-37) U/L ALT (10-53) U/L Alkaline Phosphatase (45-117) U/L Total Creatine Kinase 35 (26-192) U/L Troponin I 0.10 H (0.02-0.05) ng/mL B-Natriuretic Peptide 4432 H (0-100) pg/mL Total Protein (6.4-8.2) g/dL Albumin (3.4-5.0) g/dL Lipase (73-393) U/L Hepatitis A IgM Ab (Nonreactive) Hep Bs Antigen (Nonreactive) Hep B Core IgM Ab (Nonreactive) Hep C IgG Ab (Nonreactive) 06/28/18 06/28/18 06/28/18 Range/Units 11:40 11:40 11:40 WBC (4.0-11.0) th/mm3 RBC (4.00-5.30) mil/mm3 Hgb (11.6-15.3) gm/dL Hct (35.0-46.0) % MCV (80.0-100.0) fL MCH (27.0-34.0) pg MCHC (32.0-36.0) % RDW (11.6-17.2) % Plt Count (150-450) th/mm3 MPV (7.0-11.0) fL Neut % (Auto) (16.0-70.0) % Lymph % (Auto) (9.0-44.0) % Hamb[place] % (Auto) (0.0-8.0) % Eos % (Auto) (0.0-4.0) % Baso % (Auto) (0.0-2.0) % Neut # (Auto) (1.8-7.7) th/mm3 Lymph # (Auto) (1.0-4.8) th/mm3 Hamb[place] # (Auto) (0.0-0.9) th/mm3 Eos # (Auto) (0.0-0.4) th/mm3 Baso # (Auto) (0.0-0.2) th/mm3 WBC Differential Differential Comment PT (9.8-11.6) sec INR Ratio APTT (24.3-30.1) sec Sodium (136-145) meq/L Potassium (3.5-5.1) meq/L Chloride (98-107) meq/L Carbon Dioxide (21.0-32.0) meq/L Anion Gap (5-15) meq/L BUN (7-18) mg/dL Creatinine (0.50-1.00) mg/dL Estimated GFR (>89) mL/min POC Glucose (68-110) mg/dl Random Glucose 305 H (74-106) mg/dL Calcium (8.5-10.1) mg/dL Magnesium (1.5-2.5) mg/dL Total Bilirubin (0.2-1.0) mg/dL AST (15-37) U/L ALT (10-53) U/L Alkaline Phosphatase (45-117) U/L Total Creatine Kinase 30 (26-192) U/L Troponin I 0.08 H (0.02-0.05) ng/mL B-Natriuretic Peptide (0-100) pg/mL Total Protein (6.4-8.2) g/dL Albumin (3.4-5.0) g/dL Lipase (73-393) U/L Hepatitis A IgM Ab Indeterminate H (Nonreactive) Hep Bs Antigen Nonreactive (Nonreactive) Hep B Core IgM Ab Nonreactive (Nonreactive) Hep C IgG Ab Nonreactive (Nonreactive) 06/28/18 06/28/18 Range/Units 12:14 16:19 WBC (4.0-11.0) th/mm3 RBC (4.00-5.30) mil/mm3 Hgb (11.6-15.3) gm/dL Hct (35.0-46.0) % MCV (80.0-100.0) fL MCH (27.0-34.0) pg MCHC (32.0-36.0) % RDW (11.6-17.2) % Plt Count (150-450) th/mm3 MPV (7.0-11.0) fL Neut % (Auto) (16.0-70.0) % Lymph % (Auto) (9.0-44.0) % Hamb[place] % (Auto) (0.0-8.0) % Eos % (Auto) (0.0-4.0) % Baso % (Auto) (0.0-2.0) % Neut # (Auto) (1.8-7.7) th/mm3 Lymph # (Auto) (1.0-4.8) th/mm3 [place] # (Auto) (0.0-0.9) th/mm3 Eos # (Auto) (0.0-0.4) th/mm3 Baso # (Auto) (0.0-0.2) th/mm3 WBC Differential Differential Comment PT (9.8-11.6) sec INR Ratio APTT (24.3-30.1) sec Sodium (136-145) meq/L Potassium (3.5-5.1) meq/L Chloride (98-107) meq/L Carbon Dioxide (21.0-32.0) meq/L Anion Gap (5-15) meq/L BUN (7-18) mg/dL Creatinine (0.50-1.00) mg/dL Estimated GFR (>89) mL/min POC Glucose 448 H 104 (68-110) mg/dl Random Glucose (74-106) mg/dL Calcium (8.5-10.1) mg/dL Magnesium (1.5-2.5) mg/dL Total Bilirubin (0.2-1.0) mg/dL AST (15-37) U/L ALT (10-53) U/L Alkaline Phosphatase (45-117) U/L Total Creatine Kinase (26-192) U/L Troponin I (0.02-0.05) ng/mL B-Natriuretic Peptide (0-100) pg/mL Total Protein (6.4-8.2) g/dL Albumin (3.4-5.0) g/dL Lipase (73-393) U/L Hepatitis A IgM Ab (Nonreactive) Hep Bs Antigen (Nonreactive) Hep B Core IgM Ab (Nonreactive) Hep C IgG Ab (Nonreactive) Imaging Data Radiologist's impression: Chest X-Ray 06/27/18 23:36 CONCLUSION: 1. Small to moderate left pleural effusion again noted. Infiltrate may be present as well. 2. Interval placement of right sided double lumen central venous line. Upper Extremity Ultrasound 06/28/18 01:10 CONCLUSION: 1. The AV graft is patent. 2. Hematoma/seroma in the right axilla and along the distal brachial artery. ECG Data Attestation: I personally reviewed and interpreted this ECG as follows: Interpretation: The patient had an EKG done on arrival that shows a sinus rhythm heart rate is 65, QRS duration is 100 ms, QTC 423 ms. There is a wavy baseline noted, no acute ST segment elevation is noted. Nonspecific downsloping ST segments are noted in V5, V6. Discharge Plan Discharge Disposition Patient Disposition: 30 Still Patient Discharge Details Diagnosis: Pain and swelling of right upper extremity, Elevated troponin Physicians Team ED Provider: Gladys Zheng Primary Care Provider: Ilsa Treviño Attending Provider: Rahul Woodward Other Providers: Des Toro ; Linwood Luna Discharge Interventions Interventions: ED Discharge Assessment Last Done: 06/28/18 08:25 Vital Signs Last Done: 06/28/18 07:25 Status ED Status: Left Department Discharge Information Discharge Date/Time: 06/28/18 08:26
[2018-06-28 00:16] LABS: Baso % (Auto) 0.6 % (0.0-2.0); Eos # (Auto) 0.1 th/mm3 (0.0-0.4); Eos % (Auto) 1.1 % (0.0-4.0); Hemoglobin 11.6 gm/dL (11.6-15.3); Lymph % (Auto) 16.5 % (9.0-44.0); Mean Corpuscular HGB Conc 33.1 % (32.0-36.0); Mean Corpuscular Hemoglobin 30.2 pg (27.0-34.0); Mean Corpuscular Volume 91.3 fL (80.0-100.0); Mean Platelet Volume 8.9 fL (7.0-11.0); Mono # (Auto) 0.4 th/mm3 (0.0-0.9); Mono % (Auto) 6.4 % (0.0-8.0); Neut # (Auto) 4.5 th/mm3 (1.8-7.7); Neut % (Auto) 75.4 % (16.0-70.0); Platelet Count 202 th/mm3 (150-450); Red Blood Count 3.83 mil/mm3 (4.00-5.30); Red Cell Distribution Width 17.6 % (11.6-17.2)
[2018-06-28 00:28] LABS: Albumin 1.6 g/dL (3.4-5.0); Anion Gap 10 meq/L (5-15); Aspartate Aminotransferase 22 U/L (15-37); Blood Urea Nitrogen 55 mg/dL (7-18); Calcium 8.1 mg/dL (8.5-10.1); Carbon Dioxide 20.8 meq/L (21.0-32.0); Chloride 103 meq/L (98-107); Glomerular Filtration Rate 19 mL/min (>89); Glucose,Random 293 mg/dL (74-106); Lipase 59 U/L (73-393); Magnesium 1.9 mg/dL (1.5-2.5); Potassium 4.7 meq/L (3.5-5.1); Sodium 134 meq/L (136-145)
[2018-06-28 00:29] LABS: Alanine Aminotransferase 21 U/L (10-53)
[2018-06-28 00:33] LABS: Alkaline Phosphatase 186 U/L (45-117); Total Protein 5.4 g/dL (6.4-8.2); Troponin I 0.13 ng/mL (0.02-0.05)
[2018-06-28 00:45] LABS: Activated Partial Thrombo Time 20.5 sec (24.3-30.1); INR 0.9 Ratio; Prothrombin Time 9.2 sec (9.8-11.6)
[2018-06-28 00:48] LABS: Creatine Kinase 33 U/L (26-192)
--- NOTE | 2018-06-28 03:21 | US ---
EXAM DATE: 06/28/2018 2:45 AM EDT AGE/SEX: 67 years / Female INDICATIONS: Increased pain and swelling to the right upper extremity x 3 days. Patient is status po st AV graft placement 2 weeks ago. CLINICAL DATA: This is the patient's initial encounter. Patient reports that signs and symptoms have been present for 3 days and indicates a pain score of 6/10. MEDICAL/SURGICAL HISTORY: Anemia. Congestive heart failure. Diabetes. Coronary Artery Diseas e. Chronic Obstructive Pulmonary Disease. End Stage Renal Disease. Hypoxia. section. Tonsillectomy. Appendectomy. Hemodialysis graft placement - June 14, 2018. COMPARISON: [facility] – [place], [place] VENOUS Mapping, up EXT, RIGHT, 04/26/2018. . FINDINGS: A targeted vascular ultrasound study was performed in the right upper extremity. This demonstrated that the AV graft is patent. The anastomosis appears intact and the region the antecubital fossa demonstrates a normal waveform. No aneurysm or thrombus is ident ified. A hematoma/seroma is noted in the right axilla measuring 4.4 x 2.8 x 2.5 cm. There was a small er hematoma/seroma along the medial aspect of the distal brachial artery. This measured 4 x 1.4 x 0.6 cm. CONCLUSION: 1. The AV graft is patent. 2. Hematoma/seroma in the right axilla and along the distal brachial artery. Electronically signed by: Nura Niño MD 06/28/2018 3:20 AM EDT
[2018-06-28] MEDS ORDERED: Vancomycin Inj 1 GM/200 ML PIGGYBACK IV.SIG ONE (03:34)
[2018-06-28] MEDS ORDERED: Piperacil/Tazo 3.375 GM Premix 50 ML IV.SIG ONE (03:34)
[2018-06-28] MEDS ORDERED: Dextrose 50% in Water 50 ML Vial IV.PUSH PRN (04:28)
[2018-06-28] MEDS ORDERED: Vancomycin Consult Pharmacy 1 EACH OTHER SCH (05:00)
[2018-06-28 06:20] LABS: Troponin I 0.1 ng/mL (0.02-0.05)
--- NOTE | 2018-06-28 07:18 | P.PNVS ---
Subjective Subjective/Hospital Course: Pt well known to me. 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 On 06/14 she underwent R UE AVG (brach-ax with PTFE) because she is LEFT handed and had no suitable autogenous conduit. Her arm is swollen and she was recently placed on Keflex. No F/C. + serous drainage from the arm. Getting HD via R (ipsilateral) chest catheter Her R hand is somewhat weak and occasionally tingling but no pain. Objective Vital Signs / I&O: Vital Signs 06/27/18 23:22 06/27/18 23:25 06/28/18 00:13 Temperature 98.0 F Pulse Rate 66 66 102 H Respiratory Rate 18 18 Blood Pressure 187/81 H 120/61 Pulse Oximetry 100 93 L 100 06/28/18 05:41 Temperature Pulse Rate 84 Respiratory Rate 18 Blood Pressure 187/77 H Pulse Oximetry 99 Intake & Output 06/27/18 06/28/18 06/28/18 18:59 06:59 18:59 Weight 86.183 kg Physical Exam: R UE edematous. Incisions c/d/i without erythema. Drainage noted from forearm skin tears. Hand with good motor function. Laboratory Results - last 24 hr 06/27/18 06/27/18 06/27/18 23:44 23:44 23:44 WBC 6.0 RBC 3.83 L Hgb 11.6 Hct 35.0 MCV 91.3 MCH 30.2 MCHC 33.1 RDW 17.6 H Plt Count 202 MPV 8.9 Neut % (Auto) 75.4 H Lymph % (Auto) 16.5 [place] % (Auto) 6.4 Eos % (Auto) 1.1 Baso % (Auto) 0.6 Neut # (Auto) 4.5 Lymph # (Auto) 1.0 [place] # (Auto) 0.4 Eos # (Auto) 0.1 Baso # (Auto) 0.0 WBC Differential . Differential Comment Auto diff final PT 9.2 L INR 0.9 APTT 20.5 L Sodium 134 L Potassium 4.7 Chloride 103 Carbon Dioxide 20.8 L Anion Gap 10 BUN 55 H Creatinine 2.51 H Estimated GFR 19 L Random Glucose 293 H Calcium 8.1 L Magnesium 1.9 Total Bilirubin 0.2 AST 22 ALT 21 Alkaline Phosphatase 186 H Total Creatine Kinase 33 Troponin I 0.13 H B-Natriuretic Peptide Total Protein 5.4 L Albumin 1.6 L Lipase 59 L 06/27/18 06/28/18 23:44 05:40 WBC RBC Hgb Hct MCV MCH MCHC RDW Plt Count MPV Neut % (Auto) Lymph % (Auto) [place] % (Auto) Eos % (Auto) Baso % (Auto) Neut # (Auto) Lymph # (Auto) [place] # (Auto) Eos # (Auto) Baso # (Auto) WBC Differential Differential Comment PT INR APTT Sodium Potassium Chloride Carbon Dioxide Anion Gap BUN Creatinine Estimated GFR Random Glucose Calcium Magnesium Total Bilirubin AST ALT Alkaline Phosphatase Total Creatine Kinase 35 Troponin I 0.10 H B-Natriuretic Peptide 4432 H Total Protein Albumin Lipase Impressions Chest X-Ray 06/27/18 23:36 CONCLUSION: 1. Small to moderate left pleural effusion again noted. Infiltrate may be present as well. 2. Interval placement of right sided double lumen central venous line. Upper Extremity Ultrasound 06/28/18 01:10 CONCLUSION: 1. The AV graft is patent. 2. Hematoma/seroma in the right axilla and along the distal brachial artery. Assessment and Plan - Assessment (1) ESRD (end stage renal disease) on dialysis Code(s): N18.6 - End stage renal disease; Z99.2 - Dependence on renal dialysis Status: Acute - Plan She has post-operative swelling likely related to central vein stenosis ( catheter). I don't think that her graft is infected. The ultrasound shows normal post-operative findings. 1. Elevation of arm. 2. Will be able to use AVG in about 2 weeks, and after that the catheter can be removed. 3. Mild access-related hand ischemia. Needs OT and hand exercises. No need for inpatient admission from a vascular standpoint and can be seen in clinic - already has appointment on 07/15 but will move that up. Pt agrees with plan. Linwood Luna MD FACS RPVI vascular neurologist [facility] - [facility] Vascular Surgery at [facility] [phone]
[2018-06-28] MEDS: Insulin NovoLOG Aspart Correctional Sugar Inj SQ SCH ×3 (08:03→22:53)
[2018-06-28] MEDS ORDERED: Acetaminophen 325 MG Tablet PO PRN (09:29)
[2018-06-28] MEDS ORDERED: Albumin Human 25% Inj 100 ML IV.SIG PRN (09:29)
[2018-06-28] MEDS ORDERED: Gelatin 12 MM/7 MM Topical Foam TOPICAL PRN (09:29)
[2018-06-28] MEDS ORDERED: Epoetin Alfa Inj 2,000 UNIT/ML Vial IV.PUSH PRN (09:29)
[2018-06-28] MEDS ORDERED: Sod Chloride 0.9% Inj 1,000 ML IV.CONT PRN (09:29)
[2018-06-28] MEDS ORDERED: Sod Chloride 0.9% Inj 1,000 ML OTHER PRN ×2 (09:29)
[2018-06-28] MEDS ORDERED: Heparin 10,000 UNITS/10 ML Vial (for IV use) OTHER PRN (09:29)
[2018-06-28] MEDS ORDERED: Piperacil/Tazo 3.375 GM Premix 50 ML IV.SIG SCH (09:30)
--- NOTE | 2018-06-28 09:47 | P.CONNP ---
<KaciJessica - Last Filed: 06/28/18 12:00> History of Present Illness Service: Nephrology Consult date: 06/28/18 Requesting Physician: Jane Monaco Reason for Consult: End stage renal disease Primary Care Provider: NICHOLAS Benoit Family Provider: NICHOLAS Benoit Chief Complaint: Right arm pain and shortness of breath History of Present Illness: The patient is a 67 year old female with a past medical history of congestive heart failure, COPD, anemia, Coronary artery disease, and end stage renal disease on hemodialysis. Presents to the [facility] emergency department with a history of increased pain, swelling to the right upper extremity that began on Wednesday. She was started on Keflex on Wednesday. Dialysis graft placed on June [address] Estraad not mature yet. Has a tunneled hemodialysis catheter in right chest wall. Nephrology is consulted for management of end stage renal disease on hemodialysis. Hemodialysis days are on Wednesday, Wednesday , and Wednesday with last dialysis on Wednesday. Reports feeling some shortness of breath. Denies any nausea, vomiting or fevers. Generalized edema and right arm edematous. Ultrasound of right upper extremity with patent AV graft and hematoma/seroma in the right axilla and along the distal brachial artery. Per vascular note has post-operative swelling likely related to central vein stenosis (catheter). Review of Systems Constitutional: Reports fatigue Cardiovascular: Reports generalized swelling, Reports leg swelling, Reports shortness of breath, Denies chest pain Respiratory: Reports shortness of breath, Denies chest congestion, Denies cough , Denies coughing up blood, Denies wheezing Gastrointestinal: Denies abdominal pain, Denies nausea, Denies vomiting Musculoskeletal: Reports muscle weakness PMFSH - History History Provided By: Patient - Medical History Medical History: Medical History (Last Reviewed 06/28/18 @ 10:03 by Rahul Woodward MD) A-V fistula Anemia CAD (coronary artery disease) CHF (congestive heart failure) COPD (chronic obstructive pulmonary disease) Diabetes ESRD (end stage renal disease) on dialysis Hyperkalemia Hypoxia - Surgical History Surgical History: Surgical History (Last Reviewed 06/28/18 @ 10:03 by Rahul Woodward MD) H/O: History of tonsillectomy Hx of appendectomy Hx of heart artery stent - Family History Family History: Family History (Last Updated 06/03/18 @ 16:29 by Kamini Villarreal) Other No pertinent family history - Tobacco History Second Hand Smoke Exposure: No Tobacco Use In Past 30 Days: No Smoking Status: Former smoker Tobacco Type: Cigarettes - Alcohol History How Often Do You Have a Drink Containing Alcohol: Never - Substance Use History Substance History: No History of Abuse - Travel History Recent Travel in the [place] Within the Last 8 Weeks: No Recent Travel Out of the Country Within the Last 8 Weeks: No - Immunization History Tetanus Immunization: Unsure Hx Influenza Vaccine This Season: Yes Medications and Allergies Allergies Allergy/AdvReac Type Severity Reaction Status Date / Time propoxyphene Allergy Intermediate RASH Verified 06/27/18 23:28 Home Medications Medication Instructions Recorded Confirmed Type albuterol sulfate [Ventolin HFA] 2 puff INHALATION Q6H PRN 06/03/18 06/27/18 History aspirin 81 mg PO DAILY 06/03/18 06/27/18 History atorvastatin 40 mg PO HS 06/03/18 06/27/18 History budesonide-formoterol [Symbicort] 2 puff INHALATION BID 06/03/18 06/27/18 History carvedilol 6.25 mg PO BID 06/03/18 06/27/18 History clonidine HCl [Catapres] 0.1 mg PO TID PRN 06/03/18 06/27/18 History doxazosin 2 mg PO DAILY 06/03/18 06/27/18 History ferrous sulfate 325 mg PO DAILY 06/03/18 06/27/18 History furosemide 40 mg PO DAILY 06/03/18 06/27/18 History hydralazine 50 mg PO TID 06/03/18 06/27/18 History isosorbide mononitrate 60 mg PO DAILY 06/03/18 06/27/18 History nifedipine 30 mg PO BID 06/03/18 06/27/18 History Active Medications: Active Medications Albuterol (Ventolin Hfa Inh) 2 puff INH Q6H PRN PRN Reason: Shortness Of Breath Aspirin (Ecotrin) 81 mg PO DAILY [facility] Atorvastatin Calcium (Lipitor) 40 mg PO HS [facility] Budesonide/Formoterol Fumarate (Symbicort 160/4.5 Mcg Inh) 2 puff INH BID [facility] Carvedilol (Coreg) 6.25 mg PO BID [facility] Clonidine HCl (Catapres) 100 mg PO TID PRN PRN Reason: Respiratory Distress Dextrose (D50w Vial) 50 ml IV.PUSH UNSCH PRN PRN Reason: PER HYPOGLYCEMIA PROTOCOL Doxazosin Mesylate (Cardura) 2 mg PO DAILY [facility] Ferrous Sulfate (Ferosul) 325 mg PO DAILY [facility] Furosemide (Lasix) 40 mg PO DAILY [facility] Glucagon (Glucagon Inj) 1 mg OTHER PRN PRN PRN Reason: for Hypoglycemia Protocol Hydralazine HCl (Apresoline) 50 mg PO TID [facility] Pharmacy Profile Note (Vancomycin Consult Pharmacy) 0 mls @ 0 mls/hr OTHER UNSCH [facility] Piperacillin/Tazobactam/Dextrose (Zosyn 2.25 Gm Premix) 50 mls @ 100 mls/hr IV.SIG Q6H [facility] Insulin Aspart (Novolog Insulin Correctional Sugar Inj) 0 unit SQ ACHS [facility]; Protocol Last Admin: 06/28/18 08:03 Dose: 12 unit Insulin Detemir (Levemir Inj) 5 unit SQ BID [facility] Isosorbide Mononitrate (Imdur) 60 mg PO DAILY [facility] Lactobacillus Acidophilus (Lactinex) 1 tab PO TID [facility] Nifedipine (Procardia Xl) 30 mg PO BID [facility] Ondansetron HCl (Zofran Odt) 4 mg PO Q6H PRN PRN Reason: NAUSEA OR VOMITING Sodium Chloride (Ns Flush) 2 ml IV.FLUSH UNSCH PRN PRN Reason: FLUSH AFTER USING IV ACCESS Exam Vital signs: Vital Signs 06/27/18 23:22 06/27/18 23:25 06/28/18 00:13 Temperature 98.0 F Pulse Rate 66 66 102 H Respiratory Rate 18 18 Blood Pressure 187/81 H 120/61 Pulse Oximetry 100 93 L 100 06/28/18 05:41 06/28/18 07:25 Temperature Pulse Rate 84 62 Respiratory Rate 18 20 Blood Pressure 187/77 H 161/70 H Pulse Oximetry 99 99 Intake & Output 06/27/18 06/28/18 06/28/18 18:59 06:59 18:59 Weight 86.183 kg - Constitutional mild distress - Routine HEENT Exam Head: Present: normocephalic ENT: Present: mucous membranes moist - Routine Neck Exam Present: supple. Absent: JVD - Routine Respiratory Exam Present: decreased breath sounds. Absent: rhonchi, wheezes, crackles - Routine Cardiovascular Exam Present: RRR - Routine Abdominal Exam Present: soft, normoactive bowel sounds. Absent: tenderness - Routine Extremities Exam Present: edema, AV fistula, vascular access Comments: Right arm swelling. AVF in right arm. Tunnelled catheter in right chest wall. - Routine Skin Exam Present: dry, warm - Routine Neurological Exam Present: alert, oriented X3 Results - Lab Results 06/27/18 23:44 06/27/18 23:44 Most recent lab results Calcium 8.1 mg/dL (8.5-10.1) L 06/27/18 23:44 Magnesium 1.9 mg/dL (1.5-2.5) 06/27/18 23:44 Assessment and Plan - Assessment (1) ESRD (end stage renal disease) on dialysis Code(s): N18.6 - End stage renal disease; Z99.2 - Dependence on renal dialysis Status: Acute Plan: End stage renal disease on hemodialysis on Wednesday, Wednesday, and Wednesday. Last hemodialysis was on Wednesday, she was not feeling well enough for hemodialysis yesterday Ultrasound of right upper extremity with patent AV graft and hematoma/seroma in the right axilla and along the distal brachial artery. Avoid IVF administration Will plan on hemodialysis today and then put patient back on schedule as patient is feeling short of breath. Orders placed Labs in AM (2) Diabetes Code(s): E11.9 - Type 2 diabetes mellitus without complications Status: Acute Plan: Maintain blood sugars between 140 mg/dl to 180 mg/dl (3) Hypertension Code(s): I10 - Essential (primary) hypertension Status: Acute Plan: Will monitor. Home medications continued. <[place] Toro - Last Filed: 06/28/18 18:01> History of Present Illness Primary Care Provider: NICHOLAS Benoit Family Provider: NICHOLAS Benoit [facility] - Medical History Medical History: Medical History (Last Reviewed 06/28/18 @ 10:03 by Rahul Woodward MD) A-V fistula Anemia CAD (coronary artery disease) CHF (congestive heart failure) COPD (chronic obstructive pulmonary disease) Diabetes ESRD (end stage renal disease) on dialysis Hyperkalemia Hypoxia - Surgical History Surgical History: Surgical History (Last Reviewed 06/28/18 @ 10:03 by Rahul Woodward MD) H/O: History of tonsillectomy Hx of appendectomy Hx of heart artery stent - Family History Family History: Family History (Last Updated 06/03/18 @ 16:29 by Kamini Villarreal) Other No pertinent family history Medications and Allergies Active Medications: Active Medications Acetaminophen (Tylenol) 650 mg PO UNSCH PRN PRN Reason: SEE LABEL COMMENTS Albuterol (Ventolin Hfa Inh) 2 puff INH Q6H PRN PRN Reason: Shortness Of Breath Amoxicillin/Clavulanate Potassium (Augmentin 875/125 Mg) 1 tab PO Q12HR [facility] Aspirin (Ecotrin) 81 mg PO DAILY [facility] Last Admin: 06/28/18 11:07 Dose: 81 mg Atorvastatin Calcium (Lipitor) 40 mg PO HS [facility] Budesonide/Formoterol Fumarate (Symbicort 160/4.5 Mcg Inh) 2 puff INH BID [facility] Last Admin: 06/28/18 13:18 Dose: 2 puff Carvedilol (Coreg) 6.25 mg PO BID [facility] Last Admin: 06/28/18 11:07 Dose: 6.25 mg Clonidine HCl (Catapres) 100 mg PO TID PRN PRN Reason: Respiratory Distress Clonidine HCl (Catapres) 0.1 mg PO UNSCH PRN PRN Reason: SEE LABEL COMMENTS Dextrose (D50w Vial) 50 ml IV.PUSH UNSCH PRN PRN Reason: PER HYPOGLYCEMIA PROTOCOL Diphenhydramine HCl (Benadryl) 25 mg PO UNSCH PRN PRN Reason: SEE LABEL COMMENTS Doxazosin Mesylate (Cardura) 2 mg PO DAILY [facility] Last Admin: 06/28/18 13:18 Dose: Not Given Epoetin Low (Epogen Inj) 6,000 unit IV.PUSH UNSCH PRN PRN Reason: SEE LABEL COMMENTS Last Admin: 06/28/18 14:45 Dose: 6,000 unit Ferrous Sulfate (Ferosul) 325 mg PO DAILY [facility] Last Admin: 06/28/18 10:00 Dose: 325 mg Furosemide (Lasix) 40 mg PO DAILY [facility] Last Admin: 06/28/18 11:06 Dose: 40 mg Gelatin (Gelfoam 12 Mm/7 Mm Topical) 1 foam TOPICAL PRN PRN PRN Reason: help stop bleeding from site Gentamicin Sulfate (Gentamicin Inj) 20 mg OTHER WITH DIALYSIS PRN PRN Reason: Dwell Gentamycin Lock Last Admin: 06/28/18 14:45 Dose: 20 mg Glucagon (Glucagon Inj) 1 mg OTHER PRN PRN PRN Reason: for Hypoglycemia Protocol Heparin Sodium (Porcine) (Heparin Inj) 8,000 units OTHER WITH DIALYSIS PRN PRN Reason: for machine prime Heparin Sodium (Porcine) (Heparin Inj) 1,000 units OTHER WITH DIALYSIS PRN PRN Reason: Dwell Heparin to Fill Catheter Last Admin: 06/28/18 14:45 Dose: 1,000 units Heparin Sodium (Porcine) (Heparin Inj) 5,000 units SQ Q12HR [facility] Hydralazine HCl (Apresoline) 50 mg PO TID [facility] Last Admin: 06/28/18 13:14 Dose: 50 mg Pharmacy Profile Note (Vancomycin Consult Pharmacy) 0 mls @ 0 mls/hr OTHER UNSCH [facility] Piperacillin/Tazobactam/Dextrose (Zosyn 2.25 Gm Premix) 50 mls @ 100 mls/hr IV.SIG Q6H [facility] Last Admin: 06/28/18 17:58 Dose: 100 mls/hr Albumin Human (Flexbumin 25% Inj) 100 mls @ 60 mls/hr IV.SIG WITH DIALYSIS PRN PRN Reason: hypotension / volume replace Sodium Chloride (Ns Inj) 1,000 mls @ 0 mls/hr OTHER .Q0M PRN PRN Reason: for prime and rinse back Sodium Chloride (Ns Inj) 1,000 mls @ 200 mls/hr OTHER .Q5H PRN PRN Reason: for dialyzer flush PRN Sodium Chloride (Ns Inj) 1,000 mls @ 0 mls/hr IV.CONT .Q0M PRN PRN Reason: hypotension / volume replace Insulin Aspart (Novolog Insulin Correctional Sugar Inj) 0 unit SQ ACHS [facility]; Protocol Last Admin: 06/28/18 13:15 Dose: 12 unit Insulin Detemir (Levemir Inj) 5 unit SQ BID [facility] Last Admin: 06/28/18 12:06 Dose: 5 unit Isosorbide Mononitrate (Imdur) 60 mg PO DAILY [facility] Last Admin: 06/28/18 13:17 Dose: Not Given Lactobacillus Acidophilus (Lactinex) 1 tab PO TID [facility] Last Admin: 06/28/18 13:14 Dose: 1 tab Mannitol (Mannitol Inj) 12.5 gm IV.PUSH UNSCH PRN PRN Reason: hypotension / volume replace Nifedipine (Procardia Xl) 30 mg PO BID [facility] Last Admin: 06/28/18 13:17 Dose: Not Given Nitroglycerin (Nitrostat Sl) 0.4 mg SL Q5M PRN PRN Reason: CHEST PAIN Ondansetron HCl (Zofran Odt) 4 mg PO Q6H PRN PRN Reason: NAUSEA OR VOMITING Ondansetron HCl (Zofran Odt) 4 mg PO UNSCH PRN PRN Reason: NAUSEA OR VOMITING Sodium Chloride (Ns Flush) 2 ml IV.FLUSH UNSCH PRN PRN Reason: FLUSH AFTER USING IV ACCESS Sodium Chloride (Ns Flush) 5 ml IV.FLUSH PRN PRN PRN Reason: flush each lumen during HD Exam Vital signs: Vital Signs 06/27/18 23:22 06/27/18 23:25 06/28/18 00:13 Temperature 98.0 F Pulse Rate 66 66 102 H Respiratory Rate 18 18 Blood Pressure 187/81 H 120/61 Pulse Oximetry 100 93 L 100 06/28/18 05:41 06/28/18 07:25 06/28/18 08:00 Temperature 97.6 F Pulse Rate 84 62 58 L Respiratory Rate 18 20 17 Blood Pressure 187/77 H 161/70 H 134/65 Pulse Oximetry 99 99 98 06/28/18 12:00 06/28/18 17:15 06/28/18 17:53 Temperature 96.7 F L 96.9 F L Pulse Rate 61 58 L Respiratory Rate 17 17 Blood Pressure 119/55 L 150/65 H Pulse Oximetry 100 99 100 Intake & Output 06/27/18 06/28/18 06/28/18 18:59 06:59 18:59 Output Total 2500 / 2500 Balance -2500 / -2500 Weight 86.183 kg Output: Hemodialysis Amount 2500 / 2500 Other: Date of Last Bowel Movement 06/27/18 Results - Lab Results 06/27/18 23:44 06/28/18 11:40 Most recent lab results Calcium 8.1 mg/dL (8.5-10.1) L 06/27/18 23:44 Magnesium 1.9 mg/dL (1.5-2.5) 06/27/18 23:44 Assessment and Plan - Assessment (1) ESRD (end stage renal disease) on dialysis Code(s): N18.6 - End stage renal disease; Z99.2 - Dependence on renal dialysis Status: Acute (2) Diabetes Code(s): E11.9 - Type 2 diabetes mellitus without complications Status: Acute (3) Hypertension Code(s): I10 - Essential (primary) hypertension Status: Acute - Attending Attestation Patient seen and examined, agree with above. Patient seen during HD, Rt. arm is swollen. Seen by Vascular, has good Bruit. HD and fluid removal as tolerated.
[2018-06-28] MEDS: Ferrous Sulfate 325 MG Tablet PO SCH (10:00)
--- NOTE | 2018-06-28 10:11 | P.HPIM ---
History of Present Illness Primary Care Physician: NICHOLAS Benoit Chief Complaint: Right arm pain and shortness of breath History of Present Illness: This is a 67-year-old female with history of congestive heart failure, COPD, coronary artery disease, end-stage renal disease on hemodialysis every Wednesday and Wednesday presented to the hospital for increasing pain and swelling of the right upper extremity. 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 Yesterday , patient still continued to have increasing right upper extremity swelling and pain hence patient decided to come to the hospital. There is no note of fever, chills, nausea, vomiting, chest pain, abdominal pain, urinary symptoms. Her lower extremity swelling is better. Presently, right upper extremity swelling is better. Inpatient Certification: I certify that the inpatient services were ordered in accordance with Medicare regulations governing the order. This includes certification that hospital inpatient services are reasonable and necessary and in the case of services not specified as inpatient-only under 42 CFR 419.22(n), that they are appropriately provided as inpatient services in accordance to with the 2-midnight benchmark under 43 CFR 412.3(e) Estimated Total Length of Stay (Days): 2 Plans for Post Hospital Care: Home Review of Systems All other pertinent systems were reviewed and are negative. PMFSH - History History Provided By: Patient - Medical History Medical History: Medical History (Last Reviewed 06/28/18 @ 10:03 by Rahul Woodward MD) A-V fistula Anemia CAD (coronary artery disease) CHF (congestive heart failure) COPD (chronic obstructive pulmonary disease) Diabetes ESRD (end stage renal disease) on dialysis Hyperkalemia Hypoxia - Surgical History Surgical History: Surgical History (Last Reviewed 06/28/18 @ 10:03 by Rahul Woodward MD) H/O: History of tonsillectomy Hx of appendectomy Hx of heart artery stent - Family History Family History: Family History (Last Updated 06/03/18 @ 16:29 by Kamini Villarreal) Other No pertinent family history - Tobacco History Second Hand Smoke Exposure: No Tobacco Use In Past 30 Days: No Smoking Status: Former smoker Tobacco Type: Cigarettes - Alcohol History How Often Do You Have a Drink Containing Alcohol: Never - Substance Use History Substance History: No History of Abuse - Travel History Recent Travel in the [place] Within the Last 8 Weeks: No Recent Travel Out of the Country Within the Last 8 Weeks: No - Immunization History Tetanus Immunization: Unsure Hx Influenza Vaccine This Season: Yes Medications and Allergies Active Medications: Active Medications Acetaminophen (Tylenol) 650 mg PO UNSCH PRN PRN Reason: SEE LABEL COMMENTS Albuterol (Ventolin Hfa Inh) 2 puff INH Q6H PRN PRN Reason: Shortness Of Breath Aspirin (Ecotrin) 81 mg PO DAILY [facility] Atorvastatin Calcium (Lipitor) 40 mg PO HS [facility] Budesonide/Formoterol Fumarate (Symbicort 160/4.5 Mcg Inh) 2 puff INH BID [facility] Carvedilol (Coreg) 6.25 mg PO BID [facility] Clonidine HCl (Catapres) 100 mg PO TID PRN PRN Reason: Respiratory Distress Clonidine HCl (Catapres) 0.1 mg PO UNSCH PRN PRN Reason: SEE LABEL COMMENTS Dextrose (D50w Vial) 50 ml IV.PUSH UNSCH PRN PRN Reason: PER HYPOGLYCEMIA PROTOCOL Diphenhydramine HCl (Benadryl) 25 mg PO UNSCH PRN PRN Reason: SEE LABEL COMMENTS Doxazosin Mesylate (Cardura) 2 mg PO DAILY [facility] Epoetin Low (Epogen Inj) 6,000 unit IV.PUSH UNSCH PRN PRN Reason: SEE LABEL COMMENTS Ferrous Sulfate (Ferosul) 325 mg PO DAILY [facility] Furosemide (Lasix) 40 mg PO DAILY [facility] Gelatin (Gelfoam 12 Mm/7 Mm Topical) 1 foam TOPICAL PRN PRN PRN Reason: help stop bleeding from site Gentamicin Sulfate (Gentamicin Inj) 20 mg OTHER WITH DIALYSIS PRN PRN Reason: Dwell Gentamycin Lock Glucagon (Glucagon Inj) 1 mg OTHER PRN PRN PRN Reason: for Hypoglycemia Protocol Heparin Sodium (Porcine) (Heparin Inj) 8,000 units OTHER WITH DIALYSIS PRN PRN Reason: for machine prime Heparin Sodium (Porcine) (Heparin Inj) 1,000 units OTHER WITH DIALYSIS PRN PRN Reason: Dwell Heparin to Fill Catheter Hydralazine HCl (Apresoline) 50 mg PO TID [facility] Pharmacy Profile Note (Vancomycin Consult Pharmacy) 0 mls @ 0 mls/hr OTHER UNSCH [facility] Piperacillin/Tazobactam/Dextrose (Zosyn 2.25 Gm Premix) 50 mls @ 100 mls/hr IV.SIG Q6H [facility] Albumin Human (Flexbumin 25% Inj) 100 mls @ 60 mls/hr IV.SIG WITH DIALYSIS PRN PRN Reason: hypotension / volume replace Sodium Chloride (Ns Inj) 1,000 mls @ 0 mls/hr OTHER .Q0M PRN PRN Reason: for prime and rinse back Sodium Chloride (Ns Inj) 1,000 mls @ 200 mls/hr OTHER .Q5H PRN PRN Reason: for dialyzer flush PRN Sodium Chloride (Ns Inj) 1,000 mls @ 0 mls/hr IV.CONT .Q0M PRN PRN Reason: hypotension / volume replace Insulin Aspart (Novolog Insulin Correctional Sugar Inj) 0 unit SQ ACHS [facility]; Protocol Last Admin: 06/28/18 08:03 Dose: 12 unit Insulin Detemir (Levemir Inj) 5 unit SQ BID [facility] Isosorbide Mononitrate (Imdur) 60 mg PO DAILY [facility] Lactobacillus Acidophilus (Lactinex) 1 tab PO TID [facility] Mannitol (Mannitol Inj) 12.5 gm IV.PUSH UNSCH PRN PRN Reason: hypotension / volume replace Nifedipine (Procardia Xl) 30 mg PO BID [facility] Nitroglycerin (Nitrostat Sl) 0.4 mg SL Q5M PRN PRN Reason: CHEST PAIN Ondansetron HCl (Zofran Odt) 4 mg PO Q6H PRN PRN Reason: NAUSEA OR VOMITING Ondansetron HCl (Zofran Odt) 4 mg PO UNSCH PRN PRN Reason: NAUSEA OR VOMITING Sodium Chloride (Ns Flush) 2 ml IV.FLUSH UNSCH PRN PRN Reason: FLUSH AFTER USING IV ACCESS Sodium Chloride (Ns Flush) 5 ml IV.FLUSH PRN PRN PRN Reason: flush each lumen during HD Allergies Allergy/AdvReac Type Severity Reaction Status Date / Time propoxyphene Allergy Intermediate RASH Verified 06/27/18 23:28 Home Medications Medication Instructions Recorded Confirmed Type albuterol sulfate [Ventolin HFA] 2 puff INHALATION Q6H PRN 06/03/18 06/27/18 History aspirin 81 mg PO DAILY 06/03/18 06/27/18 History atorvastatin 40 mg PO HS 06/03/18 06/27/18 History budesonide-formoterol [Symbicort] 2 puff INHALATION BID 06/03/18 06/27/18 History carvedilol 6.25 mg PO BID 06/03/18 06/27/18 History clonidine HCl [Catapres] 0.1 mg PO TID PRN 06/03/18 06/27/18 History doxazosin 2 mg PO DAILY 06/03/18 06/27/18 History ferrous sulfate 325 mg PO DAILY 06/03/18 06/27/18 History furosemide 40 mg PO DAILY 06/03/18 06/27/18 History hydralazine 50 mg PO TID 06/03/18 06/27/18 History isosorbide mononitrate 60 mg PO DAILY 06/03/18 06/27/18 History nifedipine 30 mg PO BID 06/03/18 06/27/18 History Exam Vital signs: Vital Signs 06/27/18 23:22 06/27/18 23:25 06/28/18 00:13 Temperature 98.0 F Pulse Rate 66 66 102 H Respiratory Rate 18 18 Blood Pressure 187/81 H 120/61 Pulse Oximetry 100 93 L 100 06/28/18 05:41 06/28/18 07:25 Temperature Pulse Rate 84 62 Respiratory Rate 18 20 Blood Pressure 187/77 H 161/70 H Pulse Oximetry 99 99 Intake & Output 06/27/18 06/28/18 06/28/18 18:59 06:59 18:59 Weight 86.183 kg Narrative: Not in distress, sleeping. PERRL, pink conjunctiva without injection, anicteric Normal rate and regular rhythm, no murmurs gallops or rubs appreciated. Clear to auscultation and symmetric bilaterally, normal respiratory effort. Tunneled catheter right chest wall. Normal bowel sounds, soft, non-tender, nondistended, no guarding. Right upper extremity swelling, mild tenderness with movement and palpation, aVF in the same arm. Good pulses. No rash of generalized distribution. 1+ edema bilateral lower extremities AAO x3, no cranial nerve deficits, moves all 4 extremities, no focal neurologic deficits Normal mood, appropriate affect Results - Labs CBC & Chem 7: 06/27/18 23:44 06/27/18 23:44 Labs: Short CBC 06/27/18 Range/Units 23:44 WBC 6.0 (4.0-11.0) th/mm3 Hgb 11.6 (11.6-15.3) gm/dL Hct 35.0 (35.0-46.0) % Plt Count 202 (150-450) th/mm3 BMP 06/27/18 23:44 Sodium 134 L Potassium 4.7 Chloride 103 Carbon Dioxide 20.8 L BUN 55 H Creatinine 2.51 H Calcium 8.1 L Cardiac Enzymes 06/27/18 06/28/18 Range/Units 23:44 05:40 Total Creatine Kinase 33 35 (26-192) U/L Troponin I 0.13 H 0.10 H (0.02-0.05) ng/mL Liver Function 06/27/18 Range/Units 23:44 Total Bilirubin 0.2 (0.2-1.0) mg/dL AST 22 (15-37) U/L ALT 21 (10-53) U/L Alkaline Phosphatase 186 H (45-117) U/L Albumin 1.6 L (3.4-5.0) g/dL - Imaging Impressions Chest X-Ray 06/27/18 23:36 CONCLUSION: 1. Small to moderate left pleural effusion again noted. Infiltrate may be present as well. 2. Interval placement of right sided double lumen central venous line. Upper Extremity Ultrasound 06/28/18 01:10 CONCLUSION: 1. The AV graft is patent. 2. Hematoma/seroma in the right axilla and along the distal brachial artery. Caprini VTE Risk Assessment Caprini VTE Risk Assessment: Moderate/High Risk (score >= 2) Caprini Risk Assessment Model: Point Value = 1 Point Value = 2 Point Value = 3 Point Value = 5 Age 41-60 Minor surgery BMI > 25 kg/m2 Swollen legs Varicose veins or History of unexplained or recurrent spontaneous Oral contraceptives or hormone replacement Sepsis (< 1 month) Serious lung disease, including pneumonia (< 1 month) Abnormal pulmonary function Acute myocardial infarction Congestive heart failure (< 1 month) History of inflammatory bowel disease Medical patient at bed rest Age 61-74 Arthroscopic surgery Major open surgery (> 45 min) Laparoscopic surgery (> 45 min) Malignancy Confined to bed (> 72 hours) Immobilizing plaster cast Central venous access Age >= 75 History of VTE Family history of VTE Factor V Leiden Prothrombin [id number] Lupus anticoagulant Anticardiolipin antibodies Elevated serum homocysteine Heparin-induced thrombocytopenia Other congenital or acquired thrombophilia Stroke (< 1 month) Elective arthroplasty Hip, pelvis, or leg fracture Acute spinal cord injury (< 1 month) Prophylaxis Regimen: Total Risk Factor Score Risk Level Prophylaxis Regimen 0-1 Low Early ambulation 2 Moderate Order ONE of the following: *Sequential Compression Device (SCD) *Heparin 5000 units SQ BID 3-4 Higher Order ONE of the following medications: *Heparin 5000 units SQ TID *Enoxaparin/Lovenox 40 mg SQ daily (WT < 150 kg, CrCl > 30 mL/min) *Enoxaparin/Lovenox 30 mg SQ daily (WT < 150 kg, CrCl > 10-29 mL/min) *Enoxaparin/Lovenox 30 mg SQ BID (WT < 150 kg, CrCl > 30 mL/min) AND/OR *Sequential Compression Device (SCD) 5 or more Highest Order ONE of the following medications: *Heparin 5000 units SQ TID (Preferred with Epidurals) *Enoxaparin/Lovenox 40 mg SQ daily (WT < 150 kg, CrCl > 30 mL/min) *Enoxaparin/Lovenox 30 mg SQ daily (WT < 150 kg, CrCl > 10-29 mL/min) *Enoxaparin/Lovenox 30 mg SQ BID (WT < 150 kg, CrCl > 30 mL/min) AND *Sequential Compression Device (SCD) Assessment and Plan - Plan This is a 67-year-old female with history of coronary artery disease, CHF, end- stage renal disease presenting with right upper extremity pain and swelling. Right upper extremity pain and swelling-with patent AV graft on the same arm, rule out infection, vascular surgery consulted and nephrology. Per vascular surgery, does not appear to be infected, follow-up as outpatient. Ultrasound of the right upper extremity showed patent AV graft and hematoma/seroma in the right axilla. On Zosyn and vancomycin, switch to Augmentin. Recheck CBC and BMP in the morning. End-stage renal disease-on hemodialysis Wednesday and Wednesday, consult nephrology. Mild shortness of breath-likely secondary to CHF versus volume overload, consult nephrology for dialysis as above. Mild troponin elevation-likely secondary to accumulation from end-stage renal disease, check EKG, trending down, remained flat. Denies any chest pain. COPD-stable, not in exacerbation, continue albuterol, Symbicort CHF, coronary artery disease-restart statins, aspirin, Coreg, clonidine, doxazosin, Lasix, hydralazine, Imdur and nifedipine Diabetes mellitus-restart Levemir per home dose with sliding scale insulin. Heparin for DVT prophylaxis.
[2018-06-28] MEDS: hydrALAZINE 50 MG Tablet PO SCH ×3 (11:06→18:14)
[2018-06-28] MEDS: Furosemide 40 MG Tablet PO SCH (11:06)
[2018-06-28] MEDS: Lactobacillus Acidophilus/L. Spores Tablet PO SCH ×3 (11:07→18:14)
[2018-06-28] MEDS: Carvedilol 6.25 MG Tablet PO SCH ×2 (11:07→22:43)
[2018-06-28] MEDS: Insulin Detemir Inj 1,000 UNIT/10 ML Vial SQ SCH ×2 (12:06→22:53)
[2018-06-28 12:45] LABS: Troponin I 0.08 ng/mL (0.02-0.05)
[2018-06-28] MEDS: Isosorbide Mononitrate 60 MG ER 24HR Tablet (Imdur) PO SCH (13:17)
[2018-06-28] MEDS: Budesonide-Formoterol 160/4.5 MCG 6 GM Inhaler INH SCH ×2 (13:18→22:54)
[2018-06-28] MEDS: Piperacil/Tazo 2.25 GM Premix 50 ML IV.SIG SCH ×2 (13:29→17:58)
[2018-06-28] MEDS: Heparin 10,000 UNITS/10 ML Vial (for IV use) OTHER PRN (14:45)
[2018-06-28 16:17] LABS: Hepatitis A IgM Antibody Indeterminate (Nonreactive)
[2018-06-28 16:19] LABS: Hepatitits B Surface Antigen Nonreactive (Nonreactive)
--- NOTE | 2018-06-28 18:16 | ECG ---
Date Performed: 06/27/2018 Time Performed: 23:52:41 PTAGE: 67 years EKG: Sinus rhythm POSSIBLE ANTERIOR MYOCARDIAL INFARCTION BORDERLINE ECG PREVIOUS TRACING : 04/09/2018 17.42 Since the previous tracing, no significant change noted DOCTOR: Demetrio Rowell Interpretating Date/Time 06/29/2018 06:38:20
--- NOTE | 2018-06-28 18:18 | ECG ---
Date Performed: 06/28/2018 Time Performed: 05:33:31 PTAGE: 67 years EKG: Sinus rhythm WITH SHORT WA INTERVAL NONSPECIFIC T-WAVE ABNORMALITY POOR R-WAVE PROGRESSION BORDERLINE ECG PREVIOUS TRACING :06/27/2018 @23.52 Since the previous tracing, no significant change noted DOCTOR: Demetrio Rowell Interpretating Date/Time 06/28/2018 18:17:00
[2018-06-28] MEDS: Heparin - SQ 10,000 UNITS/ML Vial SQ SCH (22:42)
[2018-06-28] MEDS: Amoxicillin/Clavulanate 875/125 MG Tablet PO SCH (22:43)
[2018-06-29] MEDS: Piperacil/Tazo 2.25 GM Premix 50 ML IV.SIG SCH ×3 (04:02→13:53)
[2018-06-29] MEDS: Insulin NovoLOG Aspart Correctional Sugar Inj SQ SCH ×2 (07:45→13:49)
--- NOTE | 2018-06-29 08:43 | P.PNIM ---
Subjective Interval history: For hemodialysis again today. No overnight events. No fever. Right arm still painful but better. Swelling is a little bit better. No shortness of breath. Denies any chest pain. Physical Exam Vital signs: Vital Signs 06/28/18 12:00 06/28/18 17:15 06/28/18 17:53 Temperature 96.7 F L 96.9 F L Pulse Rate 61 58 L Respiratory Rate 17 17 Blood Pressure 119/55 L 150/65 H Pulse Oximetry 100 99 100 06/28/18 20:00 06/29/18 00:00 06/29/18 04:00 Temperature 97.8 F 97.8 F 97.9 F Pulse Rate 62 63 62 Respiratory Rate 17 16 17 Blood Pressure 157/66 H 130/75 158/65 H Pulse Oximetry 98 100 98 Intake & Output 06/28/18 06/29/18 06/29/18 18:59 06:59 18:59 Intake Total 820 / 820 340 / 340 Output Total 2500 / 2500 Balance -1680 / -1680 340 / 340 Intake: IV 100 / 100 100 / 100 Zosyn 2.25 GM Premix 50 ML @ 100 / 100 100 / 100 100 mls/hr IV.SIG Q6H [facility] Rx#: [id number] Oral 720 / 720 240 / 240 Output: Hemodialysis Amount 2500 / 2500 Other: # Voids 2 Date of Last Bowel Movement 06/27/18 # Bowel Movements 1 1 Narrative: Not in distress PERRL, pink conjunctiva without injection, anicteric Nose without bleeding, airway patent, oropharynx clear Supple neck Normal rate and regular rhythm, no murmurs gallops or rubs appreciated. Clear to auscultation and symmetric bilaterally, normal respiratory effort. Normal bowel sounds, soft, non-tender, nondistended, no guarding. Right upper extremity still swollen, pulses are intact, good bruit, mild weeping , decreased swelling, no warmth. AAO x3, no cranial nerve deficits, moves all 4 extremities, no focal neurologic deficits Results - Labs CBC & Chem 7: 06/27/18 23:44 06/28/18 11:40 Laboratory Results - last 24 hr 06/28/18 06/28/18 06/28/18 11:40 11:40 11:40 POC Glucose Random Glucose 305 H Total Creatine Kinase 30 Troponin I 0.08 H Hepatitis A IgM Ab Indeterminate H Hep Bs Antigen Nonreactive Hep B Core IgM Ab Nonreactive Hep C IgG Ab Nonreactive 06/28/18 06/28/18 06/28/18 12:14 16:19 22:50 POC Glucose 448 H 104 122 H Random Glucose Total Creatine Kinase Troponin I Hepatitis A IgM Ab Hep Bs Antigen Hep B Core IgM Ab Hep C IgG Ab 06/29/18 05:12 POC Glucose 78 Random Glucose Total Creatine Kinase Troponin I Hepatitis A IgM Ab Hep Bs Antigen Hep B Core IgM Ab Hep C IgG Ab Assessment and Plan - Plan This is a 67-year-old female with history of coronary artery disease, CHF, end- stage renal disease presenting with right upper extremity pain and swelling. Right upper extremity pain and swelling-with patent AV graft on the same arm, ruled out infection, vascular surgery consulted and nephrology. Per vascular surgery, does not appear to be infected, likely related to central vein stenosis that is catheter related. Follow-up as outpatient. Needs OT and hand exercises, consult OT. Elevate arm, patient instructed, AVG can be used in 2 weeks after the catheter can be removed. Ultrasound of the right upper extremity showed patent AV graft and hematoma/seroma in the right axilla. Patient started on Keflex 4 days ago, was on Zosyn and vancomycin, switch to Augmentin, finish 1 week of treatment. Labs are pending. End-stage renal disease-on hemodialysis Wednesday and Wednesday, consult nephrology. Mild shortness of breath-shortness of breath better, dialysis again today. Mild troponin elevation-likely secondary to accumulation from end-stage renal disease, EKG showed nonspecific T-wave changes, sinus rhythm. Troponin trended down, remained flat. Asymptomatic, denies any chest pain. COPD-stable, not in exacerbation, continue albuterol, Symbicort CHF, coronary artery disease-continue statins, aspirin, Coreg, clonidine, doxazosin, Lasix, hydralazine, Imdur and nifedipine Diabetes mellitus-continue Levemir per home dose with sliding scale insulin. Heparin for DVT prophylaxis. Discharge today Augmentin 875 mg twice a day for 10 days [place] for 3 days Follow-up with Dr. Luna as outpatient. Total discharge time 35 minutes
[2018-06-29 08:45] LABS: Baso # (Auto) 0.1 th/mm3 (0.0-0.2); Baso % (Auto) 1.3 % (0.0-2.0); Eos # (Auto) 0.1 th/mm3 (0.0-0.4); Eos % (Auto) 2.7 % (0.0-4.0); Hematocrit 35.1 % (35.0-46.0); Hemoglobin 11.4 gm/dL (11.6-15.3); Lymph # (Auto) 0.9 th/mm3 (1.0-4.8); Lymph % (Auto) 19.9 % (9.0-44.0); Mean Corpuscular HGB Conc 32.5 % (32.0-36.0); Mean Corpuscular Hemoglobin 29.7 pg (27.0-34.0); Mean Corpuscular Volume 91.4 fL (80.0-100.0); Mean Platelet Volume 8.5 fL (7.0-11.0); Mono # (Auto) 0.5 th/mm3 (0.0-0.9); Mono % (Auto) 9.7 % (0.0-8.0); Neut # (Auto) 3.1 th/mm3 (1.8-7.7); Neut % (Auto) 66.4 % (16.0-70.0); Platelet Count 215 th/mm3 (150-450); Red Blood Count 3.84 mil/mm3 (4.00-5.30); Red Cell Distribution Width 17.5 % (11.6-17.2); White Blood Count 4.7 th/mm3 (4.0-11.0)
[2018-06-29 09:00] VITALS: O2SAT 97
[2018-06-29 09:09] LABS: Carbon Dioxide 25.3 meq/L (21.0-32.0); Potassium 3.9 meq/L (3.5-5.1); Vancomycin,Random 9.5 Comment
[2018-06-29] MEDS: Heparin 10,000 UNITS/10 ML Vial (for IV use) OTHER PRN (12:26)
[2018-06-29] MEDS ORDERED: Vancomycin Inj 1,000 MG in Sodium Chlor 0.9% Inj 250 ML IV.SIG ONE (13:00)
[2018-06-29] MEDS: Lactobacillus Acidophilus/L. Spores Tablet PO SCH ×2 (13:47)
[2018-06-29] MEDS: Ferrous Sulfate 325 MG Tablet PO SCH (13:50)
[2018-06-29] MEDS: Amoxicillin/Clavulanate 875/125 MG Tablet PO SCH (13:50)
[2018-06-29] MEDS: hydrALAZINE 50 MG Tablet PO SCH ×2 (13:51→13:52)
[2018-06-29] MEDS: Carvedilol 6.25 MG Tablet PO SCH (13:51)
[2018-06-29] MEDS: Isosorbide Mononitrate 60 MG ER 24HR Tablet (Imdur) PO SCH (13:51)
[2018-06-29] MEDS: Heparin - SQ 10,000 UNITS/ML Vial SQ SCH (13:52)
[2018-06-29] MEDS: Furosemide 40 MG Tablet PO SCH (13:53)
[2018-06-29] MEDS: Insulin Detemir Inj 1,000 UNIT/10 ML Vial SQ SCH (13:53)
[2018-06-29] MEDS: Budesonide-Formoterol 160/4.5 MCG 6 GM Inhaler INH SCH (13:53)
[2018-06-29 14:12] VITALS: BP 169/72; PULSE 83; RESP 18; TEMP 97.2
--- NOTE | 2018-06-29 14:50 | P.PNNP ---
Subjective Interval history: Seen during hemodialysis tolerating well, no complaints. Continues to have pain in right arm but swelling slightly improved. <Jessica Clemons - Last Filed: 06/29/18 14:42> Physical Exam Vital signs: Vital Signs 06/28/18 17:15 06/28/18 17:53 06/28/18 20:00 Temperature 96.9 F L 97.8 F Pulse Rate 58 L 62 Respiratory Rate 17 17 Blood Pressure 150/65 H 157/66 H Pulse Oximetry 99 100 98 06/29/18 00:00 06/29/18 04:00 06/29/18 08:00 Temperature 97.8 F 97.9 F 97.3 F L Pulse Rate 63 62 63 Respiratory Rate 16 17 16 Blood Pressure 130/75 158/65 H 155/69 H Pulse Oximetry 100 98 97 06/29/18 09:00 06/29/18 14:00 Temperature 97.2 F L Pulse Rate 63 83 Respiratory Rate 18 Blood Pressure 169/72 H Pulse Oximetry Intake & Output 06/28/18 06/29/18 06/29/18 18:59 06:59 18:59 Intake Total 820 / 820 340 / 340 Output Total 2500 / 2500 1999 / 1999 Balance -1680 / -1680 340 / 340 -1999 / -1999 Intake: IV 100 / 100 100 / 100 Zosyn 2.25 GM Premix 50 ML @ 100 / 100 100 / 100 100 mls/hr IV.SIG Q6H [facility] Rx#: [id number] Oral 720 / 720 240 / 240 Output: Hemodialysis Amount 2500 / 2500 1999 / 1999 Other: # Voids 2 Date of Last Bowel Movement 06/27/18 06/27/18 # Bowel Movements 1 1 - Constitutional no acute distress - Routine HEENT Exam Head: Present: normocephalic - Routine Neck Exam Present: supple. Absent: JVD - Routine Respiratory Exam Present: CTA bilaterally. Absent: rales, rhonchi, wheezes - Routine Cardiovascular Exam Present: RRR. Absent: murmur - Routine Abdominal Exam Present: soft, normoactive bowel sounds. Absent: tenderness - Routine Extremities Exam Present: edema, AV fistula, vascular access - Routine Skin Exam Present: dry, warm - Routine Neurological Exam Present: alert, oriented X3 - Routine Psychiatric Exam Present: cooperative <Jessica Clemons - Last Filed: 06/29/18 14:42> Vital signs: Vital Signs 06/28/18 20:00 06/29/18 00:00 06/29/18 04:00 Temperature 97.8 F 97.8 F 97.9 F Pulse Rate 62 63 62 Respiratory Rate 17 16 17 Blood Pressure 157/66 H 130/75 158/65 H Pulse Oximetry 98 100 98 06/29/18 08:00 06/29/18 09:00 06/29/18 14:00 Temperature 97.3 F L 97.2 F L Pulse Rate 63 63 83 Respiratory Rate 16 18 Blood Pressure 155/69 H 169/72 H Pulse Oximetry 97 Intake & Output 06/28/18 06/29/18 06/29/18 18:59 06:59 18:59 Intake Total 820 / 820 340 / 340 Output Total 2500 / 2500 1999 Balance -1680 / -1680 340 / 340 -1999 Intake: IV 100 / 100 100 / 100 Zosyn 2.25 GM Premix 50 ML @ 100 / 100 100 / 100 100 mls/hr IV.SIG Q6H [facility] Rx#: [id number] Oral 720 / 720 240 / 240 Output: Hemodialysis Amount 2500 / 2500 1999 Other: # Voids 2 Date of Last Bowel Movement 06/27/18 06/27/18 # Bowel Movements 1 1 <Kacey Toro Q - Last Filed: 06/29/18 18:05> Assessment and Plan - Assessment (1) ESRD (end stage renal disease) on dialysis Code(s): N18.6 - End stage renal disease; Z99.2 - Dependence on renal dialysis Status: Acute Plan: End stage renal disease on hemodialysis on Wednesday, Wednesday, and Wednesday. Ultrasound of right upper extremity with patent AV graft and hematoma/seroma in the right axilla and along the distal brachial artery. Avoid IVF administration Hemodialysis yesterday tolerated well with 2.5 liters of fluid removed Seen during hemodialysis today with 2 liters removed. Denies any shortness of breath. Plans for discharge today. Instructed to keep arm elevated on pillows to help with edema Will follow up with Vascular surgery outpatient, AVG may possible be ready in 2 weeks and catheter removed. Continue antibiotics until complete (2) Diabetes Code(s): E11.9 - Type 2 diabetes mellitus without complications Status: Acute Plan: Maintain blood sugars between 140 mg/dl to 180 mg/dl (3) Hypertension Code(s): I10 - Essential (primary) hypertension Status: Acute Plan: Will monitor. Home medications continued. <Jessica Clemons - Last Filed: 06/29/18 14:42> - Assessment (1) ESRD (end stage renal disease) on dialysis Code(s): N18.6 - End stage renal disease; Z99.2 - Dependence on renal dialysis Status: Acute Plan: Patient seen during HD, and examined, agree with above. Keep arm elevated, seen by Vascular surgery. (2) Diabetes Code(s): E11.9 - Type 2 diabetes mellitus without complications Status: Acute (3) Hypertension Code(s): I10 - Essential (primary) hypertension Status: Acute <Des Toro - Last Filed: 06/29/18 18:05>
== END 2018-06-29 15:30 | disposition home or self-care (01) ==
LOC: NEPE 23:19 → NEDA 06-28 04:05 → H7ONC 06-28 08:15
PROVIDERS: ADMIT Hospitalist; ATTEND Hospitalist

== ENCOUNTER 2018-07-25 09:43 | Inpatient (IN) ==
--- NOTE | 2018-07-25 10:18 | ED ---
HPI General Chief Complaint: Respiratory Symptoms Stated Complaint: SOB Time Seen by Provider: 07/25/18 09:56 Source: patient and EMS Mode of arrival: EMS Limitations: no limitations History of Present Illness Patient is a 67-year-old female, past medical history significant for diabetes, hypertension, end-stage renal disease last dialyzed on Wednesday who presents with complaint of shortness of breath since Wednesday. Has been progressively worsening and does worsen when she lies flat. No fever nor chills. No cough. No chest pain. MD Complaint: shortness of breath Onset (ago): day(s) Severity: moderate Related Data Home Medications Medication Instructions Recorded Confirmed albuterol sulfate [Ventolin HFA] 2 puff INHALATION Q6H PRN 06/03/18 07/25/18 aspirin 81 mg PO DAILY 06/03/18 07/25/18 atorvastatin 40 mg PO HS 06/03/18 07/25/18 budesonide-formoterol [Symbicort] 2 puff INHALATION BID 06/03/18 07/25/18 carvedilol 6.25 mg PO BID 06/03/18 07/25/18 clonidine HCl [Catapres] 0.1 mg PO TID PRN 06/03/18 07/25/18 doxazosin 2 mg PO DAILY 06/03/18 07/25/18 ferrous sulfate 325 mg PO DAILY 06/03/18 07/25/18 furosemide 40 mg PO DAILY 06/03/18 07/25/18 hydralazine 50 mg PO TID 06/03/18 07/25/18 isosorbide mononitrate 60 mg PO DAILY 06/03/18 07/25/18 nifedipine 30 mg PO BID 06/03/18 07/25/18 Previous Rx's Medication Instructions Recorded Lactobacillus acidophilus 500 mmu cells PO TID #30 cap 06/07/18 insulin detemir U-100 [Levemir 5 unit SUB-Q BID #1 bottle 06/07/18 U-100 Insulin] hydrocodone-acetaminophen 1 tab PO Q6H PRN #12 tab 06/29/18 Allergies Allergy/AdvReac Type Severity Reaction Status Date / Time propoxyphene Allergy Intermediate RASH Verified 07/18/18 07:41 Review of Systems ROS: all other systems reviewed are negative [facility] Medical History Medical History CHF (congestive heart failure) (Acute) COPD (chronic obstructive pulmonary disease) (Acute) Chronic back pain (Acute) HLD (hyperlipidemia) (Acute) Hemodialysis access, AV graft (Acute) Hypertension (Acute) A-V fistula (Acute) Anemia (Acute) CAD (coronary artery disease) (Acute) CHF (congestive heart failure) (Acute) COPD (chronic obstructive pulmonary disease) (Acute) Diabetes (Acute) ESRD (end stage renal disease) on dialysis (Acute) Hyperkalemia (Acute) Hypoxia (Acute) Surgical History Surgical History H/O laminectomy (Acute) History of laser refractive surgery (Acute) H/O: (Acute) History of tonsillectomy (Acute) Hx of appendectomy (Acute) Hx of heart artery stent (Acute) Family History Family History Other ALS (amyotrophic lateral sclerosis) Multiple sclerosis Social History Social History Substance History: No History of Abuse Second Hand Smoke Exposure: No Smoking Status: Former smoker (Quit 16 years ago) Tobacco Type: Cigarettes How Often Do You Have a Drink Containing Alcohol: Never Recent Travel in [facility] within the Last 8 Weeks: No Recent Out of Country Travel within the Last 8 Weeks: No Exam Narrative Exam Narrative: GENERAL: Well-appearing female in no acute distress SKIN: Focused skin assessment warm/dry. No rashes. HEAD: Atraumatic. Normocephalic. EYES: Pupils equal and round. No scleral icterus. No injection or drainage. ENT: No nasal bleeding or discharge. Mucous membranes pink and moist. NECK: Trachea midline. CARDIOVASCULAR: Regular rate and rhythm. No murmur appreciated. Intact and equal peripheral pulses. RESPIRATORY: No accessory muscle use. Slight tachypnea. Decreased breath sounds throughout with intermittent wheezes and crackles. GASTROINTESTINAL: Abdomen soft, non-tender, nondistended. Hepatic and splenic margins not palpable. MUSCULOSKELETAL: No obvious deformities. No clubbing. No cyanosis. No edema. NEUROLOGICAL: Awake and alert. No obvious cranial nerve deficits. Motor grossly within normal limits. Normal speech. PSYCHIATRIC: Appropriate mood and affect; insight and judgment normal. Course Initial Documented Vital Signs Temperature 98.4 F 07/25/18 10:00 Pulse Rate 80 07/25/18 10:00 Respiratory Rate 28 H 07/25/18 10:00 Blood Pressure 228/95 H 07/25/18 10:00 Pulse Oximetry 84 L 07/25/18 10:00 Last Documented Vital Signs Temperature 98.4 F 07/25/18 10:00 Pulse Rate 78 07/25/18 12:00 Respiratory Rate 15 07/25/18 12:00 Blood Pressure 218/96 H 07/25/18 12:00 Pulse Oximetry 95 07/25/18 12:00 Medical Decision Making MDM Narrative Medical decision making narrative: Patient is a 67-year-old female who presents with complaint of dyspnea over the last several days that worsens when she lies flat. She has intermittent crackles and wheezes on exam with decreased breath sounds. She was given 1 DuoNeb on arrival states it may have helped slightly. Labs are consistent with her end-stage renal disease but show a normal potassium. X-ray does show moderate fluid overload. I spoke to the recreation program coordinator on-call for Dr. Toro, her recreation program coordinator, whom recommends at dialysis. I then spoke to Dr. Feliz, hospitalist on-call, who agreed to the admission. Medical Screen Exam Complete: Yes Emergency Medical Condition: Yes Differential Diagnosis Differential Diagnosis: Differential diagnosis includes but is not limited to COPD exacerbation CHF, fluid overload from end-stage renal disease, pneumonia. Medical Records Medical records reviewed: Yes I reviewed the patient's medical records. Lab Data Lab results reviewed: Yes I reviewed the patient's lab results. Lab results narrative: Consistent with baseline CKD. Result diagrams: 07/25/18 10:38 07/25/18 10:38 Lab Results 07/25/18 07/25/18 07/25/18 Range/Units 10:38 10:38 10:38 WBC 6.3 (4.0-11.0) th/mm3 RBC 3.19 L (4.00-5.30) mil/mm3 Hgb 9.8 L (11.6-15.3) gm/dL Hct 30.3 L (35.0-46.0) % MCV 95.0 (80.0-100.0) fL MCH 30.8 (27.0-34.0) pg MCHC 32.5 (32.0-36.0) % RDW 17.9 H (11.6-17.2) % Plt Count 358 D (150-450) th/mm3 MPV 7.9 (7.0-11.0) fL Neut % (Auto) 73.1 H (16.0-70.0) % Lymph % (Auto) 16.1 (9.0-44.0) % [place] % (Auto) 8.8 H (0.0-8.0) % Eos % (Auto) 1.3 (0.0-4.0) % Baso % (Auto) 0.7 (0.0-2.0) % Neut # (Auto) 4.6 (1.8-7.7) th/mm3 Lymph # (Auto) 1.0 (1.0-4.8) th/mm3 [place] # (Auto) 0.6 (0.0-0.9) th/mm3 Eos # (Auto) 0.1 (0.0-0.4) th/mm3 Baso # (Auto) 0.0 (0.0-0.2) th/mm3 WBC Differential . Differential Comment Auto diff final Sodium 139 (136-145) meq/L Potassium 4.3 (3.5-5.1) meq/L Chloride 106 (98-107) meq/L Carbon Dioxide 22.8 (21.0-32.0) meq/L Anion Gap 10 (5-15) meq/L BUN 55 H (7-18) mg/dL Creatinine 3.32 H (0.50-1.00) mg/dL Estimated GFR 14 L (>89) mL/min POC Glucose (68-110) mg/dl Random Glucose 80 (74-106) mg/dL Calcium 8.6 (8.5-10.1) mg/dL Total Bilirubin 0.2 (0.2-1.0) mg/dL AST 25 (15-37) U/L ALT 28 (10-53) U/L Alkaline Phosphatase 244 H (45-117) U/L Troponin I 0.07 H (0.02-0.05) ng/mL B-Natriuretic Peptide 3766 H (0-100) pg/mL Total Protein 6.9 (6.4-8.2) g/dL Albumin 2.3 L (3.4-5.0) g/dL 07/25/18 Range/Units 10:41 WBC (4.0-11.0) th/mm3 RBC (4.00-5.30) mil/mm3 Hgb (11.6-15.3) gm/dL Hct (35.0-46.0) % MCV (80.0-100.0) fL MCH (27.0-34.0) pg MCHC (32.0-36.0) % RDW (11.6-17.2) % Plt Count (150-450) th/mm3 MPV (7.0-11.0) fL Neut % (Auto) (16.0-70.0) % Lymph % (Auto) (9.0-44.0) % [place] % (Auto) (0.0-8.0) % Eos % (Auto) (0.0-4.0) % Baso % (Auto) (0.0-2.0) % Neut # (Auto) (1.8-7.7) th/mm3 Lymph # (Auto) (1.0-4.8) th/mm3 [place] # (Auto) (0.0-0.9) th/mm3 Eos # (Auto) (0.0-0.4) th/mm3 Baso # (Auto) (0.0-0.2) th/mm3 WBC Differential Differential Comment Sodium (136-145) meq/L Potassium (3.5-5.1) meq/L Chloride (98-107) meq/L Carbon Dioxide (21.0-32.0) meq/L Anion Gap (5-15) meq/L BUN (7-18) mg/dL Creatinine (0.50-1.00) mg/dL Estimated GFR (>89) mL/min POC Glucose 86 (68-110) mg/dl Random Glucose (74-106) mg/dL Calcium (8.5-10.1) mg/dL Total Bilirubin (0.2-1.0) mg/dL AST (15-37) U/L ALT (10-53) U/L Alkaline Phosphatase (45-117) U/L Troponin I (0.02-0.05) ng/mL B-Natriuretic Peptide (0-100) pg/mL Total Protein (6.4-8.2) g/dL Albumin (3.4-5.0) g/dL Imaging Data Attestation: I personally reviewed and interpreted this imaging study as follows : My impression: Fluid overload. Radiologist's impression: Chest X-Ray 07/25/18 10:09 CONCLUSION: Moderate fluid overload with large left pleural effusion. ECG Data EKG Prior to Arrival: No Attestation: I personally reviewed and interpreted this ECG as follows: (Sinus rhythm at a rate of 73 bpm. T-wave flattening in the inferior leads but no other ST or T-wave changes.) Discharge Plan Discharge Disposition Patient Disposition: 30 Still Patient Discharge Condition Condition: Stable Discharge Details Diagnosis: Fluid overload Physicians Team ED Provider: Maria Isabel Skinner Primary Care Provider: Ilsa Treviño Attending Provider: Nura Feliz Other Providers: Salma Parker Status ED Status: Admitted Patient
--- NOTE | 2018-07-25 10:38 | XR ---
EXAM DATE: 07/25/2018 10:28 AM EDT AGE/SEX: 67 years / Female INDICATIONS: Shortness of breath. CLINICAL DATA: This is the patient's initial encounter. Patient reports that signs and symptoms have been present for 3 days and indicates a pain score of 0/10. MEDICAL/SURGICAL HISTORY: Hypertension. Chronic obstructive pulmonary disease. Congestive hea rt failure. Myocardial infarction. Diabetes. . Cardiac stents. 2. COMPARISON: [facility], CHEST 1V SINGLE AP, 06/27/2018. . FINDINGS: Dialysis catheter in good position. Heart is enlarged with moderate interstitial edema Consolidation and large pleural effusion on the left Small pleural effusion right base. The portion of the bony skeleton visualized is unremarkable. CONCLUSION: Moderate fluid overload with large left pleural effusion. Electronically signed by: Meek Trimble MD 07/25/2018 10:37 AM EDT
[2018-07-25 11:32] LABS: Baso % (Auto) 0.7 % (0.0-2.0); Eos # (Auto) 0.1 th/mm3 (0.0-0.4); Eos % (Auto) 1.3 % (0.0-4.0); Hematocrit 30.3 % (35.0-46.0); Hemoglobin 9.8 gm/dL (11.6-15.3); Lymph % (Auto) 16.1 % (9.0-44.0); Mean Corpuscular HGB Conc 32.5 % (32.0-36.0); Mean Corpuscular Hemoglobin 30.8 pg (27.0-34.0); Mean Platelet Volume 7.9 fL (7.0-11.0); Mono # (Auto) 0.6 th/mm3 (0.0-0.9); Mono % (Auto) 8.8 % (0.0-8.0); Neut # (Auto) 4.6 th/mm3 (1.8-7.7); Neut % (Auto) 73.1 % (16.0-70.0); Platelet Count 358 th/mm3 (150-450); Red Blood Count 3.19 mil/mm3 (4.00-5.30); Red Cell Distribution Width 17.9 % (11.6-17.2); White Blood Count 6.3 th/mm3 (4.0-11.0)
[2018-07-25 11:53] LABS: Albumin 2.3 g/dL (3.4-5.0); Anion Gap 10 meq/L (5-15); Aspartate Aminotransferase 25 U/L (15-37); Blood Urea Nitrogen 55 mg/dL (7-18); Calcium 8.6 mg/dL (8.5-10.1); Carbon Dioxide 22.8 meq/L (21.0-32.0); Chloride 106 meq/L (98-107); Glomerular Filtration Rate 14 mL/min (>89); Glucose,Random 80 mg/dL (74-106); Potassium 4.3 meq/L (3.5-5.1); Sodium 139 meq/L (136-145)
[2018-07-25 11:55] LABS: Alanine Aminotransferase 28 U/L (10-53)
[2018-07-25 11:58] LABS: Alkaline Phosphatase 244 U/L (45-117); Total Protein 6.9 g/dL (6.4-8.2); Troponin I 0.07 ng/mL (0.02-0.05)
[2018-07-25] MEDS ORDERED: cloNIDine Susp (NICU) 20 MCG/ML 30 ML Bottle PO PRN (12:52)
[2018-07-25] MEDS ORDERED: Dextrose 50% in Water 50 ML Vial IV.PUSH PRN (12:54)
[2018-07-25] MEDS ORDERED: Acetaminophen 325 MG Tablet PO PRN ×2 (12:55→14:15)
[2018-07-25] MEDS ORDERED: hydrALAZINE HCl Inj 20 MG/ML Vial IV.PUSH ONE (13:17)
--- NOTE | 2018-07-25 13:29 | P.HPIM ---
History of Present Illness Primary Care Physician: NICHOLAS Benoit Chief Complaint: Shortness of breath History of Present Illness: The patient is a 67-year-old female with a past medical history of hypertension , CAD and end-stage renal disease who is presenting to the hospital with shortness of breath. The patient says she last had dialysis on Wednesday and was feeling well. She said on Wednesday she woke up and felt short of breath. She said yesterday she felt even more short of breath. She then said that today she felt even more short of breath. She denies any chest pain associated with the shortness of breath. She denies any mucus production. She says she has had multiple thoracenteses in the past. She says she does follow with Dr. Blankenship from pulmonology. She says that she came to the emergency department last Wednesday because she slipped out of bed and hurt her right knee. She said that there was no fracture but she still feels sore in that knee. She said that she is supposed to have home health care starting soon. She feels weak overall and is interested in possibly going to rehab. She says she did not have any appetite this morning and did not eat breakfast. She says her blood pressure generally runs high despite being on multiple high-dose medications. She says she is due for dialysis today. Inpatient Certification: I certify that the inpatient services were ordered in accordance with Medicare regulations governing the order. This includes certification that hospital inpatient services are reasonable and necessary and in the case of services not specified as inpatient-only under 42 CFR 419.22(n), that they are appropriately provided as inpatient services in accordance to with the 2-midnight benchmark under 43 CFR 412.3(e) Estimated Total Length of Stay (Days): 2 Plans for Post Hospital Care: Not yet determined Review of Systems All other systems reviewed negative except as stated in HPI PMFSH - History History Provided By: Patient, Removable Prosthodontist / EMT - Medical History Medical History: Medical History (Last Updated 07/25/18 @ 13:26 by Nura Feliz DO) CHF (congestive heart failure) COPD (chronic obstructive pulmonary disease) Chronic back pain HLD (hyperlipidemia) Hemodialysis access, AV graft Hypertension A-V fistula Anemia CAD (coronary artery disease) CHF (congestive heart failure) COPD (chronic obstructive pulmonary disease) Diabetes ESRD (end stage renal disease) on dialysis Hyperkalemia Hypoxia - Surgical History Surgical History: Surgical History (Last Reviewed 07/25/18 @ 10:19 by Elle Wilson) H/O laminectomy History of laser refractive surgery H/O: History of tonsillectomy Hx of appendectomy Hx of heart artery stent - Family History Family History: Family History (Last Updated 07/25/18 @ 13:27 by Nura Feliz DO) Other ALS (amyotrophic lateral sclerosis) Multiple sclerosis - Tobacco History Second Hand Smoke Exposure: No Tobacco Use In Past 30 Days: No Smoking Status: Former smoker (Quit 16 years ago) Tobacco Type: Cigarettes - Alcohol History How Often Do You Have a Drink Containing Alcohol: Never - Substance Use History Substance History: No History of Abuse - Travel History Recent Travel in the [place] Within the Last 8 Weeks: No Recent Travel Out of the Country Within the Last 8 Weeks: No - Immunization History Tetanus Immunization: Unsure Hx Influenza Vaccine This Season: Yes Medications and Allergies Active Medications: Active Medications Acetaminophen (Tylenol) 650 mg PO Q4H PRN PRN Reason: Temp > 100.4 Hydrocodone Bitart/Acetaminophen (Bessie 5/325) 1 tab PO Q6H PRN PRN Reason: Pain Scale 1 To 10 Aspirin (Ecotrin) 81 mg PO DAILY [facility] Atorvastatin Calcium (Lipitor) 40 mg PO HS [facility] Budesonide/Formoterol Fumarate (Symbicort 160/4.5 Mcg Inh) 2 puff INH BID [facility] Carvedilol (Coreg) 6.25 mg PO BID [facility] Clonidine HCl (Catapres) 0.2 mg PO Q6H PRN PRN Reason: SBP> OR = 180, DBP> OR = 100 Dextrose (D50w Vial) 50 ml IV.PUSH UNSCH PRN PRN Reason: PER HYPOGLYCEMIA PROTOCOL Doxazosin Mesylate (Cardura) 2 mg PO DAILY [facility] Ferrous Sulfate (Ferosul) 325 mg PO DAILY [facility] Furosemide (Lasix) 40 mg PO DAILY [facility] Glucagon (Glucagon Inj) 1 mg OTHER PRN PRN PRN Reason: for Hypoglycemia Protocol Heparin Sodium (Porcine) (Heparin Inj) 5,000 units SQ Q8H [facility] Hydralazine HCl (Apresoline) 50 mg PO TID [facility] Hydralazine HCl (Apresoline Inj) 10 mg IV.PUSH ONCE ONE Stop: 07/25/18 13:18 Insulin Aspart (Novolog Insulin Correctional Sugar Inj) 0 unit SQ ACHS [facility]AMILET; Protocol Insulin Detemir (Levemir Inj) 5 unit SQ BID [facility] Isosorbide Mononitrate (Imdur) 60 mg PO DAILY [facility] Non-Formulary Medication (Lactobacillus Acidophilus [Lactobacillus Acidophilus] ) 500 mmu cells PO TID [facility] Non-Formulary Medication (Nifedipine [Nifedipine]) 30 mg PO BID [facility] Non-Formulary Medication (Albuterol Hfa Inh) 2 puff INHALATION Q6H PRN PRN Reason: Shortness Of Breath Senna/Docusate Sodium (Jocelyn-Colace) 1 tab PO BID [facility] Allergies Allergy/AdvReac Type Severity Reaction Status Date / Time propoxyphene Allergy Intermediate RASH Verified 07/18/18 07:41 Home Medications Medication Instructions Recorded Confirmed Type albuterol sulfate [Ventolin HFA] 2 puff INHALATION Q6H PRN 06/03/18 07/25/18 History aspirin 81 mg PO DAILY 06/03/18 07/25/18 History atorvastatin 40 mg PO HS 06/03/18 07/25/18 History budesonide-formoterol [Symbicort] 2 puff INHALATION BID 06/03/18 07/25/18 History carvedilol 6.25 mg PO BID 06/03/18 07/25/18 History clonidine HCl [Catapres] 0.1 mg PO TID PRN 06/03/18 07/25/18 History doxazosin 2 mg PO DAILY 06/03/18 07/25/18 History ferrous sulfate 325 mg PO DAILY 06/03/18 07/25/18 History furosemide 40 mg PO DAILY 06/03/18 07/25/18 History hydralazine 50 mg PO TID 06/03/18 07/25/18 History isosorbide mononitrate 60 mg PO DAILY 06/03/18 07/25/18 History nifedipine 30 mg PO BID 06/03/18 07/25/18 History Exam Vital signs: Vital Signs 07/25/18 10:00 07/25/18 10:09 07/25/18 10:28 Temperature 98.4 F Pulse Rate 80 73 Respiratory Rate 28 H 18 Blood Pressure 228/95 H 214/90 H Pulse Oximetry 84 L 85 L 95 07/25/18 10:32 07/25/18 11:28 07/25/18 12:00 Temperature Pulse Rate 73 79 78 Respiratory Rate 18 18 15 Blood Pressure 226/99 H 218/96 H Pulse Oximetry 94 L 95 Intake & Output 07/24/18 07/25/18 07/25/18 18:59 06:59 18:59 Weight 77.111 kg Narrative: General: NAD HEENT: NC, AT Pulmonary: Decreased breath sounds on the left Cardiac: RRR Abdomen: NT, ND Extremities: 1+ LE edema Neuro: No gross deficits Results - Labs CBC & Chem 7: 07/25/18 10:38 07/25/18 10:38 Labs: Short CBC 07/25/18 Range/Units 10:38 WBC 6.3 (4.0-11.0) th/mm3 Hgb 9.8 L (11.6-15.3) gm/dL Hct 30.3 L (35.0-46.0) % Plt Count 358 D (150-450) th/mm3 BMP 07/25/18 10:38 Sodium 139 Potassium 4.3 Chloride 106 Carbon Dioxide 22.8 BUN 55 H Creatinine 3.32 H Calcium 8.6 Cardiac Enzymes 07/25/18 Range/Units 10:38 Troponin I 0.07 H (0.02-0.05) ng/mL Liver Function 07/25/18 Range/Units 10:38 Total Bilirubin 0.2 (0.2-1.0) mg/dL AST 25 (15-37) U/L ALT 28 (10-53) U/L Alkaline Phosphatase 244 H (45-117) U/L Albumin 2.3 L (3.4-5.0) g/dL - Imaging Impressions Chest X-Ray 07/25/18 10:09 CONCLUSION: Moderate fluid overload with large left pleural effusion. Caprini VTE Risk Assessment Caprini VTE Risk Assessment: Moderate/High Risk (score >= 2) Caprini Risk Assessment Model: Point Value = 1 Point Value = 2 Point Value = 3 Point Value = 5 Age 41-60 Minor surgery BMI > 25 kg/m2 Swollen legs Varicose veins or History of unexplained or recurrent spontaneous Oral contraceptives or hormone replacement Sepsis (< 1 month) Serious lung disease, including pneumonia (< 1 month) Abnormal pulmonary function Acute myocardial infarction Congestive heart failure (< 1 month) History of inflammatory bowel disease Medical patient at bed rest Age 61-74 Arthroscopic surgery Major open surgery (> 45 min) Laparoscopic surgery (> 45 min) Malignancy Confined to bed (> 72 hours) Immobilizing plaster cast Central venous access Age >= 75 History of VTE Family history of VTE Factor V Leiden Prothrombin [id number] Lupus anticoagulant Anticardiolipin antibodies Elevated serum homocysteine Heparin-induced thrombocytopenia Other congenital or acquired thrombophilia Stroke (< 1 month) Elective arthroplasty Hip, pelvis, or leg fracture Acute spinal cord injury (< 1 month) Prophylaxis Regimen: Total Risk Factor Score Risk Level Prophylaxis Regimen 0-1 Low Early ambulation 2 Moderate Order ONE of the following: *Sequential Compression Device (SCD) *Heparin 5000 units SQ BID 3-4 Higher Order ONE of the following medications: *Heparin 5000 units SQ TID *Enoxaparin/Lovenox 40 mg SQ daily (WT < 150 kg, CrCl > 30 mL/min) *Enoxaparin/Lovenox 30 mg SQ daily (WT < 150 kg, CrCl > 10-29 mL/min) *Enoxaparin/Lovenox 30 mg SQ BID (WT < 150 kg, CrCl > 30 mL/min) AND/OR *Sequential Compression Device (SCD) 5 or more Highest Order ONE of the following medications: *Heparin 5000 units SQ TID (Preferred with Epidurals) *Enoxaparin/Lovenox 40 mg SQ daily (WT < 150 kg, CrCl > 30 mL/min) *Enoxaparin/Lovenox 30 mg SQ daily (WT < 150 kg, CrCl > 10-29 mL/min) *Enoxaparin/Lovenox 30 mg SQ BID (WT < 150 kg, CrCl > 30 mL/min) AND *Sequential Compression Device (SCD) Assessment and Plan - Plan Acute respiratory failure S/t volume overload. CXR shows large left effusion. She is due for dialysis today. -oxygen and nebs as needed. -continue Lasix. -dialysis as scheduled. -incentive spirometry. -encourage ambulation. -pulmonology consult if no improvement with dialysis. She follows with Dr. Blankenship. ESRD On hemodialysis. -nephrology consulted for hemodialysis. -follow BMP and avoid nephrotoxins. DM On insulin as an outpt. -continue insulin along with a sliding scale. Anemia Hgb appears to be at baseline. -follow CBC. Weakness The pt is considering rehab. -PT eval. -case management consult. Right knee pain S/p fall last week. X ray in the ED at that time without acute process. -pain control as needed. -PT. PPx: Heparin Code Status: Full
[2018-07-25] MEDS ORDERED: hydrALAZINE 50 MG Tablet PO SCH (14:00)
[2018-07-25] MEDS ORDERED: Gelatin 12 MM/7 MM Topical Foam TOPICAL PRN (14:15)
[2018-07-25] MEDS ORDERED: Sod Chloride 0.9% Inj 1,000 ML OTHER PRN ×2 (14:15)
[2018-07-25] MEDS ORDERED: Albumin Human 25% Inj 100 ML IV.SIG PRN (14:15)
[2018-07-25] MEDS ORDERED: Sod Chloride 0.9% Inj 1,000 ML IV.CONT PRN (14:15)
[2018-07-25] MEDS ORDERED: Heparin 10,000 UNITS/10 ML Vial (for IV use) OTHER PRN ×2 (14:15)
--- NOTE | 2018-07-25 14:34 | P.CONNP ---
<Jessica Clemons - Last Filed: 07/25/18 14:17> History of Present Illness Service: Nephrology Consult date: 07/25/18 Requesting Physician: Maria Isabel Skinner Reason for Consult: End stage renal disease on hemodialysis Primary Care Provider: NICHOLAS Benoit Family Provider: NICHOLAS Benoit Chief Complaint: Shortness of breath History of Present Illness: Patient is a 67-year-old female, past medical history significant for diabetes, hypertension, and end-stage renal disease. Presents to the emergency room with increased shortness of breath, edema, and generalized weakness. Last week she presented to the emergency room on Wednesday s/p and ended up missing dialysis on Wednesday. She was able to make all of dialysis on Wednesday but then on Wednesday was cut short because on MD appt. Chest Xray with Moderate fluid overload with large left pleural effusion. Nephrology is consulted for end stage renal disease. Regular scheduled hemodialysis on Wednesday, Wednesday, and Wednesday. Has right IJ permacath and right AVF. Was seen by Dr. Luna on Wednesday and AVG is ready for use. [facility] - History History Provided By: Patient, Outsole Skiver / EMT - Medical History Medical History: Medical History (Last Reviewed 07/25/18 @ 13:34 by Maria Isabel Skinner MD) CHF (congestive heart failure) COPD (chronic obstructive pulmonary disease) Chronic back pain HLD (hyperlipidemia) Hemodialysis access, AV graft Hypertension A-V fistula Anemia CAD (coronary artery disease) CHF (congestive heart failure) COPD (chronic obstructive pulmonary disease) Diabetes ESRD (end stage renal disease) on dialysis Hyperkalemia Hypoxia - Surgical History Surgical History: Surgical History (Last Reviewed 07/25/18 @ 13:34 by Maria Isabel Skinner MD) H/O laminectomy History of laser refractive surgery H/O: History of tonsillectomy Hx of appendectomy Hx of heart artery stent - Family History Family History: Family History (Last Reviewed 07/25/18 @ 13:34 by Maria Isabel Skinner MD) Other ALS (amyotrophic lateral sclerosis) Multiple sclerosis - Tobacco History Second Hand Smoke Exposure: No Tobacco Use In Past 30 Days: No Smoking Status: Former smoker (Quit 16 years ago) Tobacco Type: Cigarettes - Alcohol History How Often Do You Have a Drink Containing Alcohol: Never - Substance Use History Substance History: No History of Abuse - Travel History Recent Travel in the [place] Within the Last 8 Weeks: No Recent Travel Out of the Country Within the Last 8 Weeks: No - Immunization History Tetanus Immunization: Unsure Hx Influenza Vaccine This Season: Yes Medications and Allergies Allergies Allergy/AdvReac Type Severity Reaction Status Date / Time propoxyphene Allergy Intermediate RASH Verified 07/18/18 07:41 Home Medications Medication Instructions Recorded Confirmed Type albuterol sulfate [Ventolin HFA] 2 puff INHALATION Q6H PRN 06/03/18 07/25/18 History aspirin 81 mg PO DAILY 06/03/18 07/25/18 History atorvastatin 40 mg PO HS 06/03/18 07/25/18 History budesonide-formoterol [Symbicort] 2 puff INHALATION BID 06/03/18 07/25/18 History carvedilol 6.25 mg PO BID 06/03/18 07/25/18 History clonidine HCl [Catapres] 0.1 mg PO TID PRN 06/03/18 07/25/18 History doxazosin 2 mg PO DAILY 06/03/18 07/25/18 History ferrous sulfate 325 mg PO DAILY 06/03/18 07/25/18 History furosemide 40 mg PO DAILY 06/03/18 07/25/18 History hydralazine 50 mg PO TID 06/03/18 07/25/18 History isosorbide mononitrate 60 mg PO DAILY 06/03/18 07/25/18 History nifedipine 30 mg PO BID 06/03/18 07/25/18 History Active Medications: Active Medications Acetaminophen (Tylenol) 650 mg PO Q4H PRN PRN Reason: Temp > 100.4 Acetaminophen (Tylenol) 650 mg PO UNSCH PRN PRN Reason: SEE LABEL COMMENTS Hydrocodone Bitart/Acetaminophen ([place] 5/325) 1 tab PO Q6H PRN PRN Reason: Pain Scale 1 To 10 Albuterol (Duoneb Neb (Prn)) 1 ampul NEB Q2HR NEB PRN PRN Reason: DYSPNEA Aspirin (Ecotrin) 81 mg PO DAILY [facility] Atorvastatin Calcium (Lipitor) 40 mg PO HS [facility] Budesonide/Formoterol Fumarate (Symbicort 160/4.5 Mcg Inh) 2 puff INH BID [facility] Carvedilol (Coreg) 6.25 mg PO BID [facility] Clonidine HCl (Catapres) 0.2 mg PO Q6H PRN PRN Reason: SBP> OR = 180, DBP> OR = 100 Clonidine HCl (Catapres) 0.1 mg PO UNSCH PRN PRN Reason: SEE LABEL COMMENTS Dextrose (D50w Vial) 50 ml IV.PUSH UNSCH PRN PRN Reason: PER HYPOGLYCEMIA PROTOCOL Diphenhydramine HCl (Benadryl) 25 mg PO UNSCH PRN PRN Reason: SEE LABEL COMMENTS Doxazosin Mesylate (Cardura) 2 mg PO DAILY [facility] Epoetin Low (Epogen Inj) 6,000 unit IV.PUSH UNSCH PRN PRN Reason: SEE LABEL COMMENTS Ferrous Sulfate (Ferosul) 325 mg PO DAILY [facility] Furosemide (Lasix) 40 mg PO DAILY [facility] Gelatin (Gelfoam 12 Mm/7 Mm Topical) 1 foam TOPICAL PRN PRN PRN Reason: help stop bleeding from site Gentamicin Sulfate (Gentamicin Inj) 20 mg OTHER WITH DIALYSIS PRN PRN Reason: Dwell Gentamycin Lock Glucagon (Glucagon Inj) 1 mg OTHER PRN PRN PRN Reason: for Hypoglycemia Protocol Heparin Sodium (Porcine) (Heparin Inj) 5,000 units SQ Q8H [facility] Heparin Sodium (Porcine) (Heparin Inj) 8,000 units OTHER WITH DIALYSIS PRN PRN Reason: for machine prime Heparin Sodium (Porcine) (Heparin Inj) 1,000 units OTHER WITH DIALYSIS PRN PRN Reason: Dwell Heparin to Fill Catheter Hydralazine HCl (Apresoline) 50 mg PO TID [facility] Hydralazine HCl (Apresoline Inj) 10 mg IV.PUSH ONCE ONE Stop: 07/25/18 13:18 Sodium Chloride (Ns Inj) 1,000 mls @ 0 mls/hr OTHER .Q0M PRN PRN Reason: for prime and rinse back Sodium Chloride (Ns Inj) 1,000 mls @ 0 mls/hr IV.CONT .Q0M PRN PRN Reason: hypotension / volume replace Albumin Human (Flexbumin 25% Inj) 100 mls @ 60 mls/hr IV.SIG WITH DIALYSIS PRN PRN Reason: hypotension / volume replace Sodium Chloride (Ns Inj) 1,000 mls @ 200 mls/hr OTHER .Q5H PRN PRN Reason: for dialyzer flush PRN Insulin Aspart (Novolog Insulin Correctional Sugar Inj) 0 unit SQ ACHS [facility]; Protocol Insulin Detemir (Levemir Inj) 5 unit SQ BID [facility] Isosorbide Mononitrate (Imdur) 60 mg PO DAILY [facility] Mannitol (Mannitol Inj) 12.5 gm IV.PUSH UNSCH PRN PRN Reason: hypotension / volume replace Nitroglycerin (Nitrostat Sl) 0.4 mg SL Q5M PRN PRN Reason: CHEST PAIN Non-Formulary Medication (Lactobacillus Acidophilus [Lactobacillus Acidophilus] ) 500 mmu cells PO TID [facility] Non-Formulary Medication (Nifedipine [Nifedipine]) 30 mg PO BID [facility] Non-Formulary Medication (Albuterol Hfa Inh) 2 puff INHALATION Q6H PRN PRN Reason: Shortness Of Breath Ondansetron HCl (Zofran Inj) 4 mg IV.PUSH UNSCH PRN PRN Reason: NAUSEA OR VOMITING Senna/Docusate Sodium (Jocelyn-Colace) 1 tab PO BID [facility] Sodium Chloride (Ns Flush) 5 ml IV.FLUSH PRN PRN PRN Reason: flush each lumen during HD Exam Vital signs: Vital Signs 07/25/18 10:00 07/25/18 10:09 07/25/18 10:28 Temperature 98.4 F Pulse Rate 80 73 Respiratory Rate 28 H 18 Blood Pressure 228/95 H 214/90 H Pulse Oximetry 84 L 85 L 95 07/25/18 10:32 07/25/18 11:28 07/25/18 12:00 Temperature Pulse Rate 73 79 78 Respiratory Rate 18 18 15 Blood Pressure 226/99 H 218/96 H Pulse Oximetry 94 L 95 Intake & Output 07/24/18 07/25/18 07/25/18 18:59 06:59 18:59 Weight 77.111 kg Narrative: GENERAL: Alert and oriented. SKIN: Warm and dry. Healing wounds on legs. No rashes. HEAD: Atraumatic. Normocephalic. EYES: Pupils equal and round. No scleral icterus. No injection or drainage. CARDIOVASCULAR: Regular rate and rhythm. No murmur appreciated. Intact and equal peripheral pulses. Right IJ permacath. Right AVG with positive thrill and bruits. RESPIRATORY: No accessory muscle use. Slight tachypnea. Decreased breath sounds throughout with intermittent wheezes and crackles. GASTROINTESTINAL: Abdomen soft, non-tender, nondistended. MUSCULOSKELETAL: No obvious deformities. No clubbing. No cyanosis. No edema. Results - Lab Results 07/25/18 10:38 07/25/18 10:38 Most recent lab results Calcium 8.6 mg/dL (8.5-10.1) 07/25/18 10:38 Assessment and Plan - Assessment (1) ESRD (end stage renal disease) on dialysis Code(s): N18.6 - End stage renal disease; Z99.2 - Dependence on renal dialysis Status: Acute Plan: End stage renal disease on hemodialysis on Wednesday, Wednesday, and Wednesday. Plan Avoid IVF administration Avoid gadolinium Plan for hemodialysis today will use permacath today and remove fluid as tolerated. Will plan on hemodialysis tomorrow and will use AVG Labs in AM (2) Diabetes Code(s): E11.9 - Type 2 diabetes mellitus without complications Status: Acute Plan: Maintain blood sugars between 140 mg/dl top 180 mg/dl (3) Hypertension Code(s): I10 - Essential (primary) hypertension Status: Acute Plan: Hypertensive, has PRN available. Expect improvement with hemodialysis. Will increase hydralazine today. (4) Fluid overload Code(s): E87.70 - Fluid overload, unspecified Status: Acute (5) Anemia Code(s): D64.9 - Anemia, unspecified Status: Acute Plan: HGB stable, Epogen with hemodialysis <Salma Parker S - Last Filed: 07/26/18 13:56> History of Present Illness Primary Care Provider: NICHOLAS Benoit Family Provider: NICHOLAS Benoit [facility] - Medical History Medical History: Medical History (Last Reviewed 07/25/18 @ 13:34 by Maria Isabel Skinner MD) CHF (congestive heart failure) COPD (chronic obstructive pulmonary disease) Chronic back pain HLD (hyperlipidemia) Hemodialysis access, AV graft Hypertension A-V fistula Anemia CAD (coronary artery disease) CHF (congestive heart failure) COPD (chronic obstructive pulmonary disease) Diabetes ESRD (end stage renal disease) on dialysis Hyperkalemia Hypoxia - Surgical History Surgical History: Surgical History (Last Reviewed 07/25/18 @ 13:34 by Maria Isabel Skinner MD) H/O laminectomy History of laser refractive surgery H/O: History of tonsillectomy Hx of appendectomy Hx of heart artery stent - Family History Family History: Family History (Last Reviewed 07/25/18 @ 13:34 by Maria Isabel Skinner MD) Other ALS (amyotrophic lateral sclerosis) Multiple sclerosis Medications and Allergies Active Medications: Active Medications Acetaminophen (Tylenol) 650 mg PO Q4H PRN PRN Reason: Temp > 100.4 Acetaminophen (Tylenol) 650 mg PO UNSCH PRN PRN Reason: SEE LABEL COMMENTS Hydrocodone Bitart/Acetaminophen ([place] 5/325) 1 tab PO Q6H PRN PRN Reason: Pain Scale 1 To 10 Last Admin: 07/25/18 22:38 Dose: 1 tab Albuterol (Ventolin Hfa Inh) 2 puff INH Q6HR NEB PRN PRN Reason: SHORTNESS OF BREATH Albuterol (Duoneb Neb (Prn)) 1 ampul NEB Q2HR NEB PRN PRN Reason: DYSPNEA Last Admin: 07/26/18 09:50 Dose: 1 ampul Aspirin (Ecotrin) 81 mg PO DAILY [facility] Last Admin: 07/26/18 09:03 Dose: 81 mg Atorvastatin Calcium (Lipitor) 40 mg PO HS [facility] Last Admin: 07/25/18 22:38 Dose: 40 mg Budesonide/Formoterol Fumarate (Symbicort 160/4.5 Mcg Inh) 2 puff INH BID [facility] Last Admin: 07/26/18 09:05 Dose: Not Given Carvedilol (Coreg) 6.25 mg PO BID [facility] Last Admin: 07/26/18 09:03 Dose: 6.25 mg Clonidine HCl (Catapres) 0.2 mg PO Q6H PRN PRN Reason: SBP> OR = 180, DBP> OR = 100 Dextrose (D50w Vial) 50 ml IV.PUSH UNSCH PRN PRN Reason: PER HYPOGLYCEMIA PROTOCOL Diphenhydramine HCl (Benadryl) 25 mg PO UNSCH PRN PRN Reason: SEE LABEL COMMENTS Doxazosin Mesylate (Cardura) 2 mg PO DAILY [facility] Last Admin: 07/26/18 09:03 Dose: 2 mg Epoetin Low (Epogen Inj) 6,000 unit IV.PUSH UNSCH PRN PRN Reason: SEE LABEL COMMENTS Last Admin: 07/25/18 17:03 Dose: 6,000 unit Ferrous Sulfate (Ferosul) 325 mg PO DAILY [facility] Last Admin: 07/26/18 09:03 Dose: 325 mg Furosemide (Lasix) 40 mg PO DAILY [facility] Last Admin: 07/26/18 09:03 Dose: 40 mg Gelatin (Gelfoam 12 Mm/7 Mm Topical) 1 foam TOPICAL PRN PRN PRN Reason: help stop bleeding from site Gentamicin Sulfate (Gentamicin Inj) 20 mg OTHER WITH DIALYSIS PRN PRN Reason: Dwell Gentamycin Lock Last Admin: 07/25/18 17:03 Dose: 20 mg Glucagon (Glucagon Inj) 1 mg OTHER PRN PRN PRN Reason: for Hypoglycemia Protocol Heparin Sodium (Porcine) (Heparin Inj) 5,000 units SQ Q8H [facility] Last Admin: 07/26/18 06:07 Dose: Not Given Heparin Sodium (Porcine) (Heparin Inj) 8,000 units OTHER WITH DIALYSIS PRN PRN Reason: for machine prime Heparin Sodium (Porcine) (Heparin Inj) 1,000 units OTHER WITH DIALYSIS PRN PRN Reason: Dwell Heparin to Fill Catheter Last Admin: 07/25/18 17:03 Dose: 1,000 units Hydralazine HCl (Apresoline) 100 mg PO TID [facility] Last Admin: 07/26/18 13:08 Dose: 100 mg Sodium Chloride (Ns Inj) 1,000 mls @ 0 mls/hr OTHER .Q0M PRN PRN Reason: for prime and rinse back Sodium Chloride (Ns Inj) 1,000 mls @ 0 mls/hr IV.CONT .Q0M PRN PRN Reason: hypotension / volume replace Albumin Human (Flexbumin 25% Inj) 100 mls @ 60 mls/hr IV.SIG WITH DIALYSIS PRN PRN Reason: hypotension / volume replace Sodium Chloride (Ns Inj) 1,000 mls @ 200 mls/hr OTHER .Q5H PRN PRN Reason: for dialyzer flush PRN Insulin Aspart (Novolog Insulin Correctional Sugar Inj) 0 unit SQ ACHS [facility]; Protocol Last Admin: 07/26/18 13:06 Dose: Not Given Insulin Detemir (Levemir Inj) 5 unit SQ DAILY [facility] Isosorbide Mononitrate (Imdur) 60 mg PO DAILY [facility] Last Admin: 07/26/18 09:03 Dose: 60 mg Lactobacillus Acidophilus (Lactinex) 1 tab PO TID [facility] Last Admin: 07/26/18 13:08 Dose: 1 tab Mannitol (Mannitol Inj) 12.5 gm IV.PUSH UNSCH PRN PRN Reason: hypotension / volume replace Nifedipine (Procardia) 30 mg PO BID [facility] Last Admin: 07/26/18 09:03 Dose: 30 mg Nitroglycerin (Nitrostat Sl) 0.4 mg SL Q5M PRN PRN Reason: CHEST PAIN Ondansetron HCl (Zofran Inj) 4 mg IV.PUSH UNSCH PRN PRN Reason: NAUSEA OR VOMITING Senna/Docusate Sodium (Jocelyn-Colace) 1 tab PO BID [facility] Last Admin: 07/26/18 09:04 Dose: Not Given Sodium Chloride (Ns Flush) 5 ml IV.FLUSH PRN PRN PRN Reason: flush each lumen during HD Exam Vital signs: Vital Signs 07/25/18 14:44 07/25/18 19:28 07/25/18 20:00 Temperature 98.0 F Pulse Rate 78 80 81 Respiratory Rate 22 18 Blood Pressure 208/92 H Pulse Oximetry 95 94 L 07/25/18 22:19 07/26/18 00:00 07/26/18 04:00 Temperature 97.3 F L 98.3 F Pulse Rate 72 75 Respiratory Rate 18 18 Blood Pressure 172/72 H 135/84 159/69 H Pulse Oximetry 98 92 L 07/26/18 08:00 07/26/18 09:00 07/26/18 09:51 Temperature 97.8 F Pulse Rate 76 69 74 Respiratory Rate 18 16 Blood Pressure 173/69 H Pulse Oximetry 94 L 90 L 07/26/18 12:00 Temperature 97.6 F Pulse Rate 74 Respiratory Rate 18 Blood Pressure 170/66 H Pulse Oximetry 95 Intake & Output 07/25/18 07/26/18 07/26/18 18:59 06:59 18:59 Output Total 4000 / 4000 Balance -4000 / -4000 Weight 77.111 kg 73.3 kg Output: Hemodialysis Amount 4000 / 4000 Other: Date of Last Bowel Movement 07/25/18 Weight On Admission 73.3 kg Results - Lab Results 07/26/18 06:53 07/26/18 06:53 Most recent lab results Calcium 8.1 mg/dL (8.5-10.1) L 07/26/18 06:53 Assessment and Plan - Assessment (1) ESRD (end stage renal disease) on dialysis Code(s): N18.6 - End stage renal disease; Z99.2 - Dependence on renal dialysis Status: Acute (2) Diabetes Code(s): E11.9 - Type 2 diabetes mellitus without complications Status: Acute (3) Hypertension Code(s): I10 - Essential (primary) hypertension Status: Acute (4) Fluid overload Code(s): E87.70 - Fluid overload, unspecified Status: Acute (5) Anemia Code(s): D64.9 - Anemia, unspecified Status: Acute - Attending Attestation Patient seen and examined; records reviewed; agree with the plan and recommendations of the SE[employer] <Jessica Clemons - Last Filed: 07/25/18 14:17> (4) Fluid overload Qualifiers: Hypervolemia type: unspecified Qualified Code(s): E87.70 - Fluid overload, unspecified <Salma Parker S - Last Filed: 07/26/18 13:56> (4) Fluid overload Qualifiers: Hypervolemia type: unspecified Qualified Code(s): E87.70 - Fluid overload, unspecified
[2018-07-25] MEDS: Budesonide-Formoterol 160/4.5 MCG 6 GM Inhaler INH SCH ×2 (14:41→22:39)
[2018-07-25] MEDS: Lactobacillus Acidophilus/L. Spores Tablet PO SCH (19:37)
[2018-07-25] MEDS: Insulin NovoLOG Aspart Correctional Sugar Inj SQ SCH ×2 (19:37→22:39)
[2018-07-25] MEDS: Heparin - SQ 10,000 UNITS/ML Vial SQ SCH (19:37)
[2018-07-25] MEDS: Senna/Docusate Sodium 8.6/50 MG Tablet PO SCH (22:17)
[2018-07-25] MEDS: Insulin Detemir Inj 1,000 UNIT/10 ML Vial SQ SCH (22:38)
[2018-07-25] MEDS: NIFEdipine 10 MG Capsule PO SCH (22:38)
[2018-07-25] MEDS: Carvedilol 6.25 MG Tablet PO SCH (22:38)
[2018-07-26] MEDS: Heparin - SQ 10,000 UNITS/ML Vial SQ SCH ×4 (02:36→22:43)
[2018-07-26 07:16] LABS: Eos # (Auto) 0.1 th/mm3 (0.0-0.4); Eos % (Auto) 2.8 % (0.0-4.0); Hematocrit 28.1 % (35.0-46.0); Lymph % (Auto) 22.3 % (9.0-44.0); Mean Corpuscular HGB Conc 32.2 % (32.0-36.0); Mean Corpuscular Hemoglobin 30.3 pg (27.0-34.0); Mean Corpuscular Volume 93.9 fL (80.0-100.0); Mean Platelet Volume 7.9 fL (7.0-11.0); Mono # (Auto) 0.6 th/mm3 (0.0-0.9); Mono % (Auto) 12.8 % (0.0-8.0); Neut # (Auto) 2.8 th/mm3 (1.8-7.7); Neut % (Auto) 61.1 % (16.0-70.0); Platelet Count 317 th/mm3 (150-450); Red Blood Count 2.99 mil/mm3 (4.00-5.30); White Blood Count 4.6 th/mm3 (4.0-11.0)
[2018-07-26 07:41] LABS: Alanine Aminotransferase 21 U/L (10-53); Albumin 1.8 g/dL (3.4-5.0); Anion Gap 11 meq/L (5-15); Aspartate Aminotransferase 18 U/L (15-37); Blood Urea Nitrogen 33 mg/dL (7-18); Calcium 8.1 mg/dL (8.5-10.1); Carbon Dioxide 26.1 meq/L (21.0-32.0); Chloride 104 meq/L (98-107); Glomerular Filtration Rate 20 mL/min (>89); Glucose,Random 73 mg/dL (74-106); Potassium 3.4 meq/L (3.5-5.1); Sodium 141 meq/L (136-145)
[2018-07-26 07:42] LABS: Alkaline Phosphatase 192 U/L (45-117); Total Protein 5.8 g/dL (6.4-8.2)
[2018-07-26] MEDS: Insulin NovoLOG Aspart Correctional Sugar Inj SQ SCH ×4 (09:02→21:01)
[2018-07-26] MEDS: Furosemide 40 MG Tablet PO SCH (09:03)
[2018-07-26] MEDS: Ferrous Sulfate 325 MG Tablet PO SCH (09:03)
[2018-07-26] MEDS: Carvedilol 6.25 MG Tablet PO SCH ×2 (09:03→21:00)
[2018-07-26] MEDS: NIFEdipine 10 MG Capsule PO SCH ×2 (09:03→21:00)
[2018-07-26] MEDS: Isosorbide Mononitrate 60 MG ER 24HR Tablet (Imdur) PO SCH (09:03)
[2018-07-26] MEDS: Lactobacillus Acidophilus/L. Spores Tablet PO SCH ×3 (09:03→17:38)
[2018-07-26] MEDS: Insulin Detemir Inj 1,000 UNIT/10 ML Vial SQ SCH (09:04)
[2018-07-26] MEDS: Senna/Docusate Sodium 8.6/50 MG Tablet PO SCH ×2 (09:04→21:02)
[2018-07-26] MEDS: Budesonide-Formoterol 160/4.5 MCG 6 GM Inhaler INH SCH ×2 (09:05→21:02)
--- NOTE | 2018-07-26 13:17 | P.PNNP ---
Subjective Interval history: Reports that she is having increased fatigue and weakness. Continues to report shortness of breath. Edema present but improved. <Jessica Clemons - Last Filed: 07/26/18 13:12> Physical Exam Vital signs: Vital Signs 07/25/18 14:44 07/25/18 19:28 07/25/18 20:00 Temperature 98.0 F Pulse Rate 78 80 81 Respiratory Rate 22 18 Blood Pressure 208/92 H Pulse Oximetry 95 94 L 07/25/18 22:19 07/26/18 00:00 07/26/18 04:00 Temperature 97.3 F L 98.3 F Pulse Rate 72 75 Respiratory Rate 18 18 Blood Pressure 172/72 H 135/84 159/69 H Pulse Oximetry 98 92 L 07/26/18 08:00 07/26/18 09:00 07/26/18 09:51 Temperature 97.8 F Pulse Rate 76 69 74 Respiratory Rate 18 16 Blood Pressure 173/69 H Pulse Oximetry 94 L 90 L Intake & Output 07/25/18 07/26/18 07/26/18 18:59 06:59 18:59 Output Total 4000 / 4000 Balance -4000 / -4000 Weight 77.111 kg 73.3 kg Output: Hemodialysis Amount 4000 / 4000 Other: Date of Last Bowel Movement 07/25/18 Weight On Admission 73.3 kg Narrative: GENERAL: Alert and oriented. SKIN: Warm and dry. Healing wounds on legs. No rashes. HEAD: Atraumatic. Normocephalic. EYES: Pupils equal and round. No scleral icterus. No injection or drainage. CARDIOVASCULAR: Regular rate and rhythm. No murmur appreciated. Intact and equal peripheral pulses. Right IJ permacath. Right AVG with positive thrill and bruits. RESPIRATORY: No accessory muscle use. Slight tachypnea. Decreased breath sounds throughout with intermittent wheezes and crackles. GASTROINTESTINAL: Abdomen soft, non-tender, nondistended. MUSCULOSKELETAL: No obvious deformities. No clubbing. No cyanosis. No edema. <Jessica Clemons - Last Filed: 07/26/18 13:12> Vital signs: Vital Signs 07/25/18 14:44 07/25/18 19:28 07/25/18 20:00 Temperature 98.0 F Pulse Rate 78 80 81 Respiratory Rate 22 18 Blood Pressure 208/92 H Pulse Oximetry 95 94 L 07/25/18 22:19 07/26/18 00:00 07/26/18 04:00 Temperature 97.3 F L 98.3 F Pulse Rate 72 75 Respiratory Rate 18 18 Blood Pressure 172/72 H 135/84 159/69 H Pulse Oximetry 98 92 L 07/26/18 08:00 07/26/18 09:00 07/26/18 09:51 Temperature 97.8 F Pulse Rate 76 69 74 Respiratory Rate 18 16 Blood Pressure 173/69 H Pulse Oximetry 94 L 90 L 07/26/18 12:00 Temperature 97.6 F Pulse Rate 74 Respiratory Rate 18 Blood Pressure 170/66 H Pulse Oximetry 95 Intake & Output 07/25/18 07/26/18 07/26/18 18:59 06:59 18:59 Output Total 4000 / 4000 Balance -4000 / -4000 Weight 77.111 kg 73.3 kg Output: Hemodialysis Amount 4000 / 4000 Other: Date of Last Bowel Movement 07/25/18 Weight On Admission 73.3 kg <Salma Parker - Last Filed: 07/26/18 14:14> Assessment and Plan - Assessment (1) ESRD (end stage renal disease) on dialysis Code(s): N18.6 - End stage renal disease; Z99.2 - Dependence on renal dialysis Status: Acute Plan: End stage renal disease on hemodialysis on Wednesday, Wednesday, and Wednesday. Plan Avoid IVF administration Avoid gadolinium Hemodialysis yesterday with removal of 4 liters of fluid Will plan on hemodialysis today and will use AVG, continues to have shortness of breath Hypokalemia will adjust K bath accordingly. Labs in AM (2) Diabetes Code(s): E11.9 - Type 2 diabetes mellitus without complications Status: Acute Plan: Maintain blood sugars between 140 mg/dl top 180 mg/dl (3) Hypertension Code(s): I10 - Essential (primary) hypertension Status: Acute Plan: Hypertensive, has PRN available. Expect improvement with hemodialysis. Complaining of fatigue possible side effect from clonidine. (4) Fluid overload Code(s): E87.70 - Fluid overload, unspecified Status: Acute Qualifiers: Hypervolemia type: unspecified Qualified Code(s): E87.70 - Fluid overload, unspecified (5) Anemia Code(s): D64.9 - Anemia, unspecified Status: Acute Plan: HGB stable at 9.0, Epogen with hemodialysis <Jessica Clemons - Last Filed: 07/26/18 13:12> - Assessment (1) ESRD (end stage renal disease) on dialysis Code(s): N18.6 - End stage renal disease; Z99.2 - Dependence on renal dialysis Status: Acute (2) Diabetes Code(s): E11.9 - Type 2 diabetes mellitus without complications Status: Acute (3) Hypertension Code(s): I10 - Essential (primary) hypertension Status: Acute (4) Fluid overload Code(s): E87.70 - Fluid overload, unspecified Status: Acute Qualifiers: Hypervolemia type: unspecified Qualified Code(s): E87.70 - Fluid overload, unspecified (5) Anemia Code(s): D64.9 - Anemia, unspecified Status: Acute - Attending Attestation Patient seen and examined; records reviewed; agree with the plan and recommendations of the DIRECTOR BIOLOGY <Salma Parker - Last Filed: 07/26/18 14:14>
--- NOTE | 2018-07-26 13:35 | P.PNIM ---
Subjective Interval history: The patient said that she felt weak and a little short of breath. She said that the swelling in her legs was much improved. She was complaining of pain in her left thumb. She said it started last night. No other acute concerns. Physical Exam Vital signs: Vital Signs 07/25/18 14:44 07/25/18 19:28 07/25/18 20:00 Temperature 98.0 F Pulse Rate 78 80 81 Respiratory Rate 22 18 Blood Pressure 208/92 H Pulse Oximetry 95 94 L 07/25/18 22:19 07/26/18 00:00 07/26/18 04:00 Temperature 97.3 F L 98.3 F Pulse Rate 72 75 Respiratory Rate 18 18 Blood Pressure 172/72 H 135/84 159/69 H Pulse Oximetry 98 92 L 07/26/18 08:00 07/26/18 09:00 07/26/18 09:51 Temperature 97.8 F Pulse Rate 76 69 74 Respiratory Rate 18 16 Blood Pressure 173/69 H Pulse Oximetry 94 L 90 L Intake & Output 07/25/18 07/26/18 07/26/18 18:59 06:59 18:59 Output Total 4000 / 4000 Balance -4000 / -4000 Weight 77.111 kg 73.3 kg Output: Hemodialysis Amount 4000 / 4000 Other: Date of Last Bowel Movement 07/25/18 Weight On Admission 73.3 kg Narrative: General: NAD HEENT: NC, AT Pulmonary: Decreased breath sounds on the left Cardiac: RRR Abdomen: NT, ND Extremities: Left thumb with tenderness to palpation along lateral nail bed. 1 + LE edema. Neuro: No gross deficits Results - Labs CBC & Chem 7: 07/26/18 06:53 07/26/18 06:53 Laboratory Results - last 24 hr 07/25/18 07/25/18 07/25/18 13:51 16:47 22:15 WBC RBC Hgb Hct MCV MCH MCHC RDW Plt Count MPV Neut % (Auto) Lymph % (Auto) Foard % (Auto) Eos % (Auto) Baso % (Auto) Neut # (Auto) Lymph # (Auto) Foard # (Auto) Eos # (Auto) Baso # (Auto) WBC Differential Differential Comment Sodium Potassium Chloride Carbon Dioxide Anion Gap BUN Creatinine Estimated GFR POC Glucose 95 200 H Random Glucose Calcium Total Bilirubin AST ALT Alkaline Phosphatase Troponin I 0.07 H Total Protein Albumin 07/26/18 07/26/18 07/26/18 06:53 06:53 07:39 WBC 4.6 RBC 2.99 L Hgb 9.0 L Hct 28.1 L MCV 93.9 MCH 30.3 MCHC 32.2 RDW 18.0 H Plt Count 317 MPV 7.9 Neut % (Auto) 61.1 Lymph % (Auto) 22.3 Foard % (Auto) 12.8 H Eos % (Auto) 2.8 Baso % (Auto) 1.0 Neut # (Auto) 2.8 Lymph # (Auto) 1.0 Foard # (Auto) 0.6 Eos # (Auto) 0.1 Baso # (Auto) 0.0 WBC Differential . Differential Comment Auto diff final Sodium 141 Potassium 3.4 L D Chloride 104 Carbon Dioxide 26.1 Anion Gap 11 BUN 33 H Creatinine 2.42 H Estimated GFR 20 L POC Glucose 72 Random Glucose 73 L Calcium 8.1 L Total Bilirubin 0.2 AST 18 ALT 21 Alkaline Phosphatase 192 H Troponin I Total Protein 5.8 L D Albumin 1.8 L 07/26/18 12:16 WBC RBC Hgb Hct MCV MCH MCHC RDW Plt Count MPV Neut % (Auto) Lymph % (Auto) Foard % (Auto) Eos % (Auto) Baso % (Auto) Neut # (Auto) Lymph # (Auto) Foard # (Auto) Eos # (Auto) Baso # (Auto) WBC Differential Differential Comment Sodium Potassium Chloride Carbon Dioxide Anion Gap BUN Creatinine Estimated GFR POC Glucose 75 Random Glucose Calcium Total Bilirubin AST ALT Alkaline Phosphatase Troponin I Total Protein Albumin Assessment and Plan - Plan Acute respiratory failure S/t volume overload. CXR shows large left effusion. -oxygen and nebs as needed. Add scheduled nebs per pt request. -continue Lasix. -dialysis as scheduled. Will likely have another dialysis session today. -incentive spirometry. -encourage ambulation. -pulmonology consult if no improvement with dialysis. She follows with Dr. Blankenship. ESRD On hemodialysis. -nephrology consulted for hemodialysis. -follow BMP and avoid nephrotoxins. DM On insulin as an outpt. -continue insulin along with a sliding scale. Decrease Levemir to 5 units daily and adjust as needed. Anemia Hgb appears to be at baseline. -follow CBC. Weakness The pt is considering rehab. -PT eval. -case management consult. Right knee pain S/p fall last week. X ray in the ED at that time without acute process. -pain control as needed. -PT. Left thumb pain Possibly at risk for an ingrown nail. Exam unremarkable except for tenderness. -X ray pending. PPx: Heparin
--- NOTE | 2018-07-26 15:13 | XR ---
EXAM DATE: 07/26/2018 2:43 PM EDT AGE/SEX: 67 years / Female INDICATIONS: Left lateral hand pain since last night. No injury. CLINICAL DATA: This is the patient's initial encounter. Patient reports that signs and symptoms have been present for 1 day and indicates a pain score of 4/10. MEDICAL/SURGICAL HISTORY: Hypertension. Chronic obstructive pulmonary disease. Congestive hea rt failure. CAD. Diabetes. End stage renal disease, dialysis. Appendectomy. section. Co ronary artery stent. L5 Laminectomy. COMPARISON: No prior exams available for comparison. FINDINGS: Bony structures are intact and in normal alignment. Osseous density is decreased. Soft tissues are u nremarkable. No radiopaque foreign bodies seen. Radial and ulnar artery calcifications and digital artery calcifications are noted. CONCLUSION: Vascular calcifications and decreased bone density. Electronically signed by: Roberto Wilson MD 07/26/2018 3:11 PM EDT
--- NOTE | 2018-07-26 16:08 | ECG ---
Date Performed: 07/25/2018 Time Performed: 10:36:20 PTAGE: 67 years EKG: Sinus rhythm WITH SHORT DC INTERVAL ANTEROSEPTAL MYOCARDIAL INFARCTION Since the previous tracing, no significant change noted ABNORMAL ECG PREVIOUS TRACING : 06/28/2018 05.33 DOCTOR: Martin Newman Interpretating Date/Time 07/26/2018 16:07:36
[2018-07-27] MEDS: Heparin - SQ 10,000 UNITS/ML Vial SQ SCH ×2 (06:01→17:13)
[2018-07-27 06:24] LABS: Potassium 3.4 meq/L (3.5-5.1)
[2018-07-27] MEDS ORDERED: Insulin Detemir Inj 1,000 UNIT/10 ML Vial SQ SCH (09:00)
[2018-07-27] MEDS: Insulin NovoLOG Aspart Correctional Sugar Inj SQ SCH ×3 (09:59→17:14)
[2018-07-27] MEDS: Ferrous Sulfate 325 MG Tablet PO SCH (10:06)
[2018-07-27] MEDS: Isosorbide Mononitrate 60 MG ER 24HR Tablet (Imdur) PO SCH (10:06)
[2018-07-27] MEDS: Carvedilol 6.25 MG Tablet PO SCH (10:06)
[2018-07-27] MEDS: Furosemide 40 MG Tablet PO SCH (10:07)
[2018-07-27] MEDS: Budesonide-Formoterol 160/4.5 MCG 6 GM Inhaler INH SCH (10:07)
[2018-07-27] MEDS: Lactobacillus Acidophilus/L. Spores Tablet PO SCH ×2 (10:07→12:59)
[2018-07-27] MEDS: NIFEdipine 10 MG Capsule PO SCH (10:08)
[2018-07-27] MEDS: Senna/Docusate Sodium 8.6/50 MG Tablet PO SCH (10:08)
--- NOTE | 2018-07-27 12:43 | P.PNNP ---
Subjective Interval history: Seen during hemodialysis tolerating well. Shortness of breath and edema has resolved. AVG used today for dialysis. <Jessica Clemons - Last Filed: 07/27/18 12:39> Physical Exam Vital signs: Vital Signs 07/26/18 16:00 07/26/18 19:43 07/26/18 20:00 Temperature 97.9 F 98.0 F Pulse Rate 80 84 Respiratory Rate 18 21 Blood Pressure 168/68 H 175/72 H Pulse Oximetry 95 93 L 90 L 07/27/18 00:00 07/27/18 04:00 07/27/18 08:19 Temperature 98.0 F 98.3 F Pulse Rate 78 79 Respiratory Rate 18 19 Blood Pressure 115/58 L 140/63 Pulse Oximetry 90 L 90 L 96 07/27/18 09:00 Temperature Pulse Rate 77 Respiratory Rate Blood Pressure Pulse Oximetry Intake & Output 07/26/18 07/27/18 07/27/18 18:59 06:59 18:59 Intake Total 380 / 380 240 / 240 Output Total 3000 / 3000 200 / 200 3000 / 3000 Balance -2620 / -2620 40 / 40 -3000 / -3000 Weight 74.3 kg Intake: Oral 380 / 380 240 / 240 Output: Urine 200 / 200 Hemodialysis Amount 3000 / 3000 3000 / 3000 Other: # Voids 0 # Bowel Movements 0 Narrative: GENERAL: Alert and oriented. SKIN: Warm and dry. Healing wounds on legs. No rashes. HEAD: Atraumatic. Normocephalic. EYES: Pupils equal and round. No scleral icterus. No injection or drainage. CARDIOVASCULAR: Regular rate and rhythm. No murmur appreciated. Intact and equal peripheral pulses. Right IJ permacath. Right AVG with positive thrill and bruits. RESPIRATORY: No accessory muscle use. Lung sounds clear. GASTROINTESTINAL: Abdomen soft, non-tender, nondistended. MUSCULOSKELETAL: No obvious deformities. No clubbing. No cyanosis. No edema. <Jessica Clemons - Last Filed: 07/27/18 12:39> Vital signs: Intake & Output 07/27/18 07/28/18 07/28/18 18:59 06:59 18:59 Output Total 3000 / 3000 Balance -3000 / -3000 Output: Hemodialysis Amount 3000 / 3000 <Salma Parker S - Last Filed: 07/28/18 18:15> Assessment and Plan - Assessment (1) ESRD (end stage renal disease) on dialysis Code(s): N18.6 - End stage renal disease; Z99.2 - Dependence on renal dialysis Status: Acute Plan: End stage renal disease on hemodialysis on Wednesday, Wednesday, and Wednesday. Plan Avoid IVF administration Avoid gadolinium Seen during hemodialysis tolerating well, edema and SOB has resolved AVF used today with out issues, order for permacath removal today. Next hemodialysis planned for Wednesday (2) Diabetes Code(s): E11.9 - Type 2 diabetes mellitus without complications Status: Acute Plan: Maintain blood sugars between 140 mg/dl top 180 mg/dl (3) Hypertension Code(s): I10 - Essential (primary) hypertension Status: Acute Plan: Hypertension improved. Continue current hypertensive medication. (4) Fluid overload Code(s): E87.70 - Fluid overload, unspecified Status: Acute Qualifiers: Hypervolemia type: unspecified Qualified Code(s): E87.70 - Fluid overload, unspecified (5) Anemia Code(s): D64.9 - Anemia, unspecified Status: Acute Plan: HGB stable, Epogen with hemodialysis <Jessica Clemons - Last Filed: 07/27/18 12:39> - Assessment (1) ESRD (end stage renal disease) on dialysis Code(s): N18.6 - End stage renal disease; Z99.2 - Dependence on renal dialysis Status: Acute (2) Diabetes Code(s): E11.9 - Type 2 diabetes mellitus without complications Status: Acute (3) Hypertension Code(s): I10 - Essential (primary) hypertension Status: Acute (4) Fluid overload Code(s): E87.70 - Fluid overload, unspecified Status: Acute Qualifiers: Hypervolemia type: unspecified Qualified Code(s): E87.70 - Fluid overload, unspecified (5) Anemia Code(s): D64.9 - Anemia, unspecified Status: Acute - Attending Attestation Patient seen and examined; records reviewed; agree with the plan and recommendations of the [employer] <Salma Parker S - Last Filed: 07/28/18 18:15>
--- NOTE | 2018-07-27 13:08 | P.DCO ---
- Physical Therapy Order: Evaluate and treat, Improve ambulation, Strength and gait training - Home Health Nursing Order: Medical education, Signs/symptoms of disease process, Diabetic education , Oxygen administration education, Medication education-adverse effect, Nursing assessment with vital signs - Certification I have seen patient Brinda Maynard on 07/27/18. My clinical findings support the need for the requested home health care services because: Limited mobility due to disease progression, Patient has SOB, Deconditioned with increased weakness I certify that my clinical findings support that this patient is homebound because: Unsteady gait/balance, Unsafe to leave home unassisted
--- NOTE | 2018-07-27 13:42 | P.DS ---
Date of admission: 07/25/18 12:51 Primary care physician: NICHOLAS Benoit Brief History from admission: The patient is a 67-year-old female with a past medical history of hypertension , CAD and end-stage renal disease who is presenting to the hospital with shortness of breath. The patient says she last had dialysis on Wednesday and was feeling well. She said on Wednesday she woke up and felt short of breath. She said yesterday she felt even more short of breath. She then said that today she felt even more short of breath. She denies any chest pain associated with the shortness of breath. She denies any mucus production. She says she has had multiple thoracenteses in the past. She says she does follow with Dr. Blankenship from pulmonology. She says that she came to the emergency department last Wednesday because she slipped out of bed and hurt her right knee. She said that there was no fracture but she still feels sore in that knee. She said that she is supposed to have home health care starting soon. She feels weak overall and is interested in possibly going to rehab. She says she did not have any appetite this morning and did not eat breakfast. She says her blood pressure generally runs high despite being on multiple high-dose medications. She says she is due for dialysis today. DS: Diagnosis - Discharge Diagnosis (1) ESRD (end stage renal disease) on dialysis Status: Acute (2) Hypertension Status: Acute (3) Fluid overload Status: Acute DS: Medications - Discharge Medications Prescriptions: hydralazine 100 mg PO TID #90 tab DS: Summary Hospital Course: Acute respiratory failure Secondary to volume overload. CXR showed large left effusion. The pt is on home oxygen. She received oxygen and nebs as needed. We added scheduled nebs. We continued Lasix. She received dialysis per nephrology. She utilized incentive spirometry. We encouraged ambulation. She will follow up with pulmonology upon discharge. She will continue dialysis as an outpt. ESRD Nephrology was consulted for hemodialysis. The pt received extra hemodialysis sessions to manage her volume overload. She will resume her home regimen upon discharge. Weakness PT recommended rehab placement. The pt wanted to go home. Case management was consulted. Home health care was arranged. Right knee pain S/p fall last week. X ray in the ED at that time without acute process. She received pain control as needed and worked with PT. - Time Spent with Patient Total time spent providing and/or coordinating discharge services: Greater than 30 minutes - Quality: VTE Deep Vein Thrombosis/Pulmonary Embolism Present on Admission: No Exam Vital signs: Vital Signs 07/26/18 16:00 07/26/18 19:43 07/26/18 20:00 Temperature 97.9 F 98.0 F Pulse Rate 80 84 Respiratory Rate 18 21 Blood Pressure 168/68 H 175/72 H Pulse Oximetry 95 93 L 90 L 07/27/18 00:00 07/27/18 04:00 07/27/18 08:19 Temperature 98.0 F 98.3 F Pulse Rate 78 79 Respiratory Rate 18 19 Blood Pressure 115/58 L 140/63 Pulse Oximetry 90 L 90 L 96 07/27/18 09:00 Temperature Pulse Rate 77 Respiratory Rate Blood Pressure Pulse Oximetry Intake & Output 07/26/18 07/27/18 07/27/18 18:59 06:59 18:59 Intake Total 380 / 380 240 / 240 Output Total 3000 / 3000 200 / 200 3000 / 3000 Balance -2620 / -2620 40 / 40 -3000 / -3000 Weight 74.3 kg Intake: Oral 380 / 380 240 / 240 Output: Urine 200 / 200 Hemodialysis Amount 3000 / 3000 3000 / 3000 Other: # Voids 0 # Bowel Movements 0 Narrative: General: NAD HEENT: NC, AT Pulmonary: Decreased breath sounds on the left Cardiac: RRR Abdomen: NT, ND Extremities: Left thumb with tenderness to palpation along lateral nail bed. 1 + LE edema. Neuro: No gross deficits Results Procedures completed during hospitalization: None Labs on day of discharge: Labs from last 24 hours 07/27/18 07/27/18 07/27/18 12:59 07:54 04:32 Sodium 142 Potassium 3.4 L Chloride 104 Carbon Dioxide 28.0 Anion Gap 10 BUN 29 H Creatinine 2.32 H Estimated GFR 21 L POC Glucose 162 H 181 H Random Glucose 134 H Calcium 8.0 L 07/26/18 07/26/18 20:01 17:00 Sodium Potassium Chloride Carbon Dioxide Anion Gap BUN Creatinine Estimated GFR POC Glucose 175 H 80 Random Glucose Calcium - Impressions ITS Impressions Chest X-Ray 07/25/18 10:09 CONCLUSION: Moderate fluid overload with large left pleural effusion. Hand X-Ray 07/26/18 00:00 CONCLUSION: Vascular calcifications and decreased bone density. Discharge Plan - Discharge Disposition Patient Disposition: /Home Health Service - Discharge Condition Condition: Stable - Discharge Order Discharge Orders: Discharge Order (Routine); Ordered 07/27/18 Ordered By: Nura Feliz - Discharge Details Anticipated Discharge Date: 07/27/18 Discharge Comment: OK to discharge once permacath removed and ride is here - Physicians Team Primary Care Provider: Ilsa Treviño Attending Provider: Nura Feliz Other Providers: Salma Parker MD
--- NOTE | 2018-07-27 15:32 | OTSOAPIP ---
TIME SESSION COMPLETED: 1519 TREATMENT TIME: 0 MINS. RECEIVED OCCUPATIONAL THERAPY ORDERS FROM DR. VALERA. PATIENT IS KNOWN TO THIS THERAPIST AND HAS HISTORY OF DECLINING THERAPY SERVICES. ATTEMPTED EVALUATION, HOWEVER PATIENT POLITELY AND ADAMANTLY DECLINED STATING SHE WAS ALREADY SCHEDULED TO BE DISCHARGED THIS DATE AT 1600 AND SHE WAS JUST WAITING FOR HER DAUGHTER. SHE REPORTED SHE WILL RECEIVING OCCUPATIONAL THERAPY AND PHYSICAL THERAPY HOME HEALTH AND IT IS ALREADY SET UP. SPOKE WITH CASE MANAGEMENT TO CONFIRM THAT AN OT EVALUATION IS NOT NEEDED FOR DISCHARGE. CASE MANAGEMENT STATED EVALUATION WAS NOT REQUIRED FOR DISCHARGE, THEREFORE DID NOT COMPLETE PER PATIENTS REQUEST. INTERDISCIPLINARY COMMUNICATION: REVIEWED ELECTRONIC MEDICAL RECORD, SPOKE WITH CASE MANAGEMENT Therapist: SANDRA CADE, OTR/L Signature on file
--- NOTE | 2018-07-28 09:08 | IR ---
EXAM DATE: 07/27/2018 12:07 PM EDT AGE/SEX: 67 years / Female INDICATIONS: Patient with a history of renal failure no longer needs dialysis catheter CLINICAL DATA: This is the patient's subsequent encounter. Patient reports that signs and symptoms h ave been present for 4 - 6 months and indicates a pain score of 0/10. MEDICAL/SURGICAL HISTORY: Diabetes. Hypertension. Renal disease, end stage. CHFCOPDChronic b ack painHLDA-V fistulaAnemiaCAD section. Tonsillectomy. Appendectomy. Heart artery stent Laminectomy COMPARISON: No prior exams available for comparison. FLUORO TIME (min): 0 IMAGE SERIES: 0 ACCESS SITE: Right . . PROCEDURE : 1. PermaCath removal. 2. Fluoroscopic guidance. The risks, benefits and alternatives to the procedure were explained and verbal and written consent w as obtained. The site was prepped in sterile fashion. Full sterile technique was used, including ca p, mask, sterile gloves and gown and a large sterile sheet. Hand hygiene and 2% chlorhexidine and/or betadine/alcohol prep was utilized per protocol for cutaneous antisepsis. The skin and subcutaneous tissues were infiltrated with local anesthetic solution. The tract was anesthetized with 1% Lidocain e using fluoroscopic guidance. The Permcath was dissected from the subcutaneous tissues and easily removed in one piece. Manual pre ssure was applied to the venotomy site until hemostasis was obtained. Sterile dressing was applied. The patient tolerated the procedure well and there were no complications. CONCLUSION: 1. Uncomplicated Permcath removal. Electronically signed by: Eric Pham MD 07/28/2018 9:06 AM EDT
== END 2018-07-27 17:15 | disposition home health service (06) ==
LOC: NEPE 09:43 → NEDA 12:51 → N04 18:51
PROVIDERS: ADMIT Hospitalist; ATTEND Hospitalist

== ENCOUNTER 2018-08-08 06:27 | Observation (INO) ==
--- NOTE | 2018-08-08 06:57 | ED ---
HPI General Chief complaint: Respiratory Symptoms Stated complaint: resp Time Seen by Provider: 08/08/18 06:34 Source: patient Limitations: no limitations History of Present Illness HPI narrative: The patient is a 67 year old female who presents to the [facility] emergency department with a history of shortness of breath that she reports has become worse since yesterday. The patient reports that she has a history of pleural effusion requiring thoracentesis at least 4 times in the past , and a history of fluid overload related to renal failure. The patient is on hemodialysis on Wednesday and Wednesday. She reports that she did receive her usual dialysis last on Wednesday. She reports that she was admitted to the hospital related to fluid overload and a recurrent effusion on July 25, 2018. According to the record, the patient did undergo an extra hemodialysis session and was able to be discharged. She reports that she followed up with her electric shaver mechanic, Dr. Blankenship, regarding this hospitalization, on . She reports that he told her to come to the emergency department for evaluation of her symptoms were worsening again as she continued to have a large effusion on examination. She denies having any chest pain. She is on 3 L nasal cannula O2 as needed. She reports that since yesterday she has been wearing this continuously. The patient denies any recent smoking. She reports that she quit smoking 16 years ago. On review of systems otherwise, the patient denies having any known recent fevers, worsening cough or congestion, neck pain, abdominal pain, vomiting, diarrhea, urinary symptoms, or neurologic symptoms. Related Data Home Medications Medication Instructions Recorded Confirmed albuterol sulfate [Ventolin HFA] 2 puff INHALATION Q6H PRN 06/03/18 08/08/18 aspirin 81 mg PO DAILY 06/03/18 08/08/18 atorvastatin 40 mg PO HS 06/03/18 08/08/18 budesonide-formoterol [Symbicort] 2 puff INHALATION BID 06/03/18 08/08/18 carvedilol 6.25 mg PO BID 06/03/18 08/08/18 clonidine HCl [Catapres] 0.1 mg PO TID PRN 06/03/18 08/08/18 doxazosin 2 mg PO DAILY 06/03/18 08/08/18 ferrous sulfate 325 mg PO DAILY 06/03/18 08/08/18 furosemide 40 mg PO DAILY 06/03/18 08/08/18 isosorbide mononitrate 60 mg PO DAILY 06/03/18 08/08/18 nifedipine 30 mg PO BID 06/03/18 08/08/18 Previous Rx's Medication Instructions Recorded Lactobacillus acidophilus 500 mmu cells PO TID #30 cap 06/07/18 insulin detemir U-100 [Levemir 5 unit SUB-Q BID #1 bottle 06/07/18 U-100 Insulin] hydrocodone-acetaminophen 1 tab PO Q6H PRN #12 tab 06/29/18 hydralazine 100 mg PO TID #90 tab 07/27/18 Allergies Allergy/AdvReac Type Severity Reaction Status Date / Time propoxyphene Allergy Intermediate RASH Verified 07/18/18 07:41 Review of Systems ROS: all other systems reviewed are negative [facility] Medical History Medical History A-V fistula (Acute) Anemia (Acute) CAD (coronary artery disease) (Acute) CHF (congestive heart failure) (Acute) CHF (congestive heart failure) (Acute) COPD (chronic obstructive pulmonary disease) (Acute) COPD (chronic obstructive pulmonary disease) (Acute) Chronic back pain (Acute) Diabetes (Acute) ESRD (end stage renal disease) on dialysis (Acute) HLD (hyperlipidemia) (Acute) Hemodialysis access, AV graft (Acute) Hyperkalemia (Acute) Hypertension (Acute) Hypoxia (Acute) Surgical History Surgical History H/O laminectomy (Acute) H/O: (Acute) History of laser refractive surgery (Acute) History of tonsillectomy (Acute) Hx of appendectomy (Acute) Hx of heart artery stent (Acute) Family History Family History Other ALS (amyotrophic lateral sclerosis) Multiple sclerosis Social History Social History Substance History: No History of Abuse Second Hand Smoke Exposure: No Smoking Status: Former smoker Tobacco Type: Cigarettes Smoking End Date: The patient reports that she quit smoking 16 years ago. How Often Do You Have a Drink Containing Alcohol: Never Recent Travel in [facility] within the Last 8 Weeks: No Recent Out of Country Travel within the Last 8 Weeks: No Immunization History Tetanus Immunization: Unsure Hx Influenza Vaccine This Season: No Exam Const General: cooperative, no acute distress and well developed Nutritional Appearance: well nourished Orientation: alert, awake and oriented x3 HENMT Head: normocephalic and atraumatic Nose: no nasal discharge and no epistaxis Mouth: moist mucous membranes Throat: posterior oropharynx normal and uvula midline Eyes Sclera: normal sclerae Pupils: PERRL Neck Neck: no meningeal signs, trachea midline and no JVD Resp Effort & Inspection: no use of accessory muscles Auscultation: other (Decreased breath sounds in the left lung base, no wheezes, rhonchi, or crackles are audible. No accessory muscle use noted. No tripoding. No paroxysmal abdominal breathing.) Cardio Rate: regular rate Rhythm: regular rhythm Heart Sounds: no murmurs GI Inspection: non-distended Palpation: soft, no hepatosplenomegaly and nontender Auscultation: normal bowel sounds Back/Spine/Pelvis Back: no CVA tenderness Skin General: dry skin (warm) Neuro General: alert, awake and oriented x3 Cranial Nerves: other (Grossly nonfocal.) Speech: speech normal Motor: no movement abnormalities noted Extrem General: normal to inspection (No calf tenderness on palpation. Less than 3 second capillary refill.), no clubbing, no cyanosis and edema (1+ pedal edema noted slightly worse on the left compared to the right. She reports that this is chronic.) Laterality: bilaterally Psych Mood: congruent mood Affect: normal affect Judgment: judgment good Course Consultations Consultation #1: Resident team agrees to admission Initial Documented Vital Signs Temperature 97.5 F L 08/08/18 06:30 Pulse Rate 70 08/08/18 06:30 Respiratory Rate 16 08/08/18 06:30 Blood Pressure 116/58 L 08/08/18 06:30 Pulse Oximetry 92 L 08/08/18 06:30 Last Documented Vital Signs Temperature 97.5 F L 08/08/18 06:30 Pulse Rate 66 08/08/18 08:32 Respiratory Rate 18 08/08/18 08:32 Blood Pressure 175/75 H 08/08/18 08:32 Pulse Oximetry 98 08/08/18 08:32 Sign Out Sign Out Data: Patient Sign Out occurred on 08/08/18 at 07:34. Patient's care was discussed, and care was transferred from Gladys Zheng MD to Sonia Leroy MD. Sign Out Comment: The patient's case was checked out to the oncoming emergency physician to disposition based on the conclusion of her workup. The patient is pending laboratory studies, imaging, and reexamined Last updated by Gladys Zheng MD at 08/08/18 07:10 Post-Handoff Eval: Signed over to me to follow up workup and admit. Patient updated and agrees to admission. Dr. 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 Patient with recurrent pleural effusion and due for dialysis today Medical Decision Making MDM Narrative Medical decision making narrative: During the course of the patient's emergency department visit, the patient's history, examination, and differential diagnosis were reviewed with the patient. The patient was placed on a satellite project site monitor with oximetry and frequent blood pressure monitoring. The patient had IV access obtained and blood work sent for analysis. A diagnostic evaluation was started regarding the patient's shortness of breath. The patient was continued on her 3 L nasal cannula O2 and is noted to be saturating 95-96%. The patient's laboratory studies and imaging are pending at the conclusion of my shift. The patient's case will be checked out to the oncoming emergency physician to disposition the patient based on the conclusion of her workup. Medical Screen Exam Complete: Yes Emergency Medical Condition: Yes Differential Diagnosis Differential Diagnosis: Recurrent worsening pleural effusion, versus pulmonary edema, versus pneumonia, versus COPD exacerbation Medical Records Medical records reviewed: Yes I reviewed the patient's medical records. Lab Data Result diagrams: 08/08/18 07:00 08/08/18 07:00 Lab Results 08/08/18 08/08/18 08/08/18 Range/Units 07:00 07:00 07:00 WBC 9.7 (4.0-11.0) th/mm3 RBC 2.96 L (4.00-5.30) mil/mm3 Hgb 9.1 L (11.6-15.3) gm/dL Hct 27.9 L (35.0-46.0) % MCV 94.1 (80.0-100.0) fL MCH 30.6 (27.0-34.0) pg MCHC 32.5 (32.0-36.0) % RDW 17.4 H (11.6-17.2) % Plt Count 271 (150-450) th/mm3 MPV 8.5 (7.0-11.0) fL Neut % (Auto) 76.9 H (16.0-70.0) % Lymph % (Auto) 12.9 (9.0-44.0) % [facility] % (Auto) 8.5 H (0.0-8.0) % Eos % (Auto) 1.1 (0.0-4.0) % Baso % (Auto) 0.6 (0.0-2.0) % Neut # (Auto) 7.4 (1.8-7.7) th/mm3 Lymph # (Auto) 1.2 (1.0-4.8) th/mm3 [facility] # (Auto) 0.8 (0.0-0.9) th/mm3 Eos # (Auto) 0.1 (0.0-0.4) th/mm3 Baso # (Auto) 0.1 (0.0-0.2) th/mm3 WBC Differential . Differential Comment Auto diff final PT 10.1 (9.8-11.6) sec INR 1.0 Ratio APTT 25.4 (24.3-30.1) sec Sodium 136 (136-145) meq/L Potassium 5.0 (3.5-5.1) meq/L Chloride 103 (98-107) meq/L Carbon Dioxide 21.2 (21.0-32.0) meq/L Anion Gap 12 (5-15) meq/L BUN 46 H (7-18) mg/dL Creatinine 3.00 H (0.50-1.00) mg/dL Estimated GFR 16 L (>89) mL/min Random Glucose 340 H (74-106) mg/dL Calcium 8.4 L (8.5-10.1) mg/dL Magnesium 2.2 (1.5-2.5) mg/dL Total Bilirubin 0.2 (0.2-1.0) mg/dL AST 35 (15-37) U/L ALT 23 (10-53) U/L Alkaline Phosphatase 225 H (45-117) U/L B-Natriuretic Peptide (0-100) pg/mL Total Protein 6.6 (6.4-8.2) g/dL Albumin 2.2 L (3.4-5.0) g/dL 08/08/18 Range/Units 07:00 WBC (4.0-11.0) th/mm3 RBC (4.00-5.30) mil/mm3 Hgb (11.6-15.3) gm/dL Hct (35.0-46.0) % MCV (80.0-100.0) fL MCH (27.0-34.0) pg MCHC (32.0-36.0) % RDW (11.6-17.2) % Plt Count (150-450) th/mm3 MPV (7.0-11.0) fL Neut % (Auto) (16.0-70.0) % Lymph % (Auto) (9.0-44.0) % [facility] % (Auto) (0.0-8.0) % Eos % (Auto) (0.0-4.0) % Baso % (Auto) (0.0-2.0) % Neut # (Auto) (1.8-7.7) th/mm3 Lymph # (Auto) (1.0-4.8) th/mm3 [facility] # (Auto) (0.0-0.9) th/mm3 Eos # (Auto) (0.0-0.4) th/mm3 Baso # (Auto) (0.0-0.2) th/mm3 WBC Differential Differential Comment PT (9.8-11.6) sec INR Ratio APTT (24.3-30.1) sec Sodium (136-145) meq/L Potassium (3.5-5.1) meq/L Chloride (98-107) meq/L Carbon Dioxide (21.0-32.0) meq/L Anion Gap (5-15) meq/L BUN (7-18) mg/dL Creatinine (0.50-1.00) mg/dL Estimated GFR (>89) mL/min Random Glucose (74-106) mg/dL Calcium (8.5-10.1) mg/dL Magnesium (1.5-2.5) mg/dL Total Bilirubin (0.2-1.0) mg/dL AST (15-37) U/L ALT (10-53) U/L Alkaline Phosphatase (45-117) U/L B-Natriuretic Peptide 3442 H (0-100) pg/mL Total Protein (6.4-8.2) g/dL Albumin (3.4-5.0) g/dL Imaging Data Radiologist's impression: Chest X-Ray 08/08/18 06:57 CONCLUSION: Persistent dense consolidation with associated effusion in the left lung base. Improving aeration right lung base with decreasing airspace disease. Interval removal of tunneled dialysis catheter. ECG Data Attestation: I personally reviewed and interpreted this ECG as follows: Interpretation: The patient had a EKG done on arrival. The patient's EKG shows a heart rate of 70, QRS duration is 101 ms, QTC [address] segment elevation is noted. Discharge Plan Discharge Disposition Patient Disposition: 30 Still Patient Discharge Details Diagnosis: Pleural effusion, ESRD on dialysis Physicians Team ED Provider: Sonia Leroy Primary Care Provider: Ilsa Treviño Rxs /Orders / Referrals /Forms Prescriptions: No Action furosemide 40 mg Tablet 40 mg PO DAILY RF: 0 aspirin 81 mg Tablet,Delayed Release (Dr/Ec) 81 mg PO DAILY RF: 0 atorvastatin 40 mg Tablet 40 mg PO HS RF: 0 isosorbide mononitrate 60 mg Tablet Extended Release 24 Hr 60 mg PO DAILY RF: 0 clonidine HCl [Catapres] 0.1 mg Tablet 0.1 mg PO TID PRN (Reason: Respiratory Distress) RF: 0 carvedilol 6.25 mg Tablet 6.25 mg PO BID RF: 0 nifedipine 30 mg Tablet Extended Release 30 mg PO BID RF: 0 ferrous sulfate 325 mg (65 mg iron) Tablet 325 mg PO DAILY RF: 0 albuterol sulfate [Ventolin HFA] 90 mcg/actuation Hfa Aerosol Inhaler 2 puff INHALATION Q6H PRN (Reason: Shortness Of Breath) RF: 0 doxazosin 2 mg Tablet 2 mg PO DAILY RF: 0 budesonide-formoterol [Symbicort] 160-4.5 mcg/actuation Hfa Aerosol Inhaler 2 puff INHALATION BID RF: 0 insulin detemir U-100 [Levemir U-100 Insulin] 100 unit/mL Solution 5 unit Sub-Q BID Qty: 1 RF: 0 Lactobacillus acidophilus Capsule 500 mmu cells PO TID Qty: 30 RF: 0 hydrocodone-acetaminophen 5-325 mg Tablet 1 tab PO Q6H PRN (Reason: Pain Scale 1 To 10) Qty: 12 RF: 0 hydralazine 100 mg Tablet 100 mg PO TID Qty: 90 RF: 0 Discharge Interventions Interventions: Vital Signs Last Done: 08/08/18 08:32 Status ED Status: Admitted Observation Patient
--- NOTE | 2018-08-08 07:29 | XR ---
EXAM DATE: 08/08/2018 7:22 AM EDT AGE/SEX: 67 years / Female INDICATIONS: Short of breath, with wheezing. CLINICAL DATA: This is the patient's initial encounter. Patient reports that signs and symptoms have been present for 3 weeks and indicates a pain score of 0/10. MEDICAL/SURGICAL HISTORY: Cerebrovascular disease. Chronic obstructive pulmonary disease. Erika betes. Hypertension . Cardiac cath. COMPARISON: [facility] – [place], [place], CHEST 1V SINGLE AP, 07/25/2018. . FINDINGS: Improving lung aeration is noted. There is decreasing airspace disease in the right base. Dense conso lidation with associated effusion remains evident in the left base. Tunneled dialysis catheter is no longer present. Heart and mediastinal structures are stable. CONCLUSION: Persistent dense consolidation with associated effusion in the left lung base. Improving aeration right lung base with decreasing airspace disease. Interval removal of tunneled dialysis catheter. Electronically signed by: Arnaldo Arnold MD 08/08/2018 7:27 AM EDT
[2018-08-08 07:50] LABS: Baso # (Auto) 0.1 th/mm3 (0.0-0.2); Baso % (Auto) 0.6 % (0.0-2.0); Eos # (Auto) 0.1 th/mm3 (0.0-0.4); Eos % (Auto) 1.1 % (0.0-4.0); Hematocrit 27.9 % (35.0-46.0); Hemoglobin 9.1 gm/dL (11.6-15.3); Lymph # (Auto) 1.2 th/mm3 (1.0-4.8); Lymph % (Auto) 12.9 % (9.0-44.0); Mean Corpuscular HGB Conc 32.5 % (32.0-36.0); Mean Corpuscular Hemoglobin 30.6 pg (27.0-34.0); Mean Corpuscular Volume 94.1 fL (80.0-100.0); Mean Platelet Volume 8.5 fL (7.0-11.0); Mono # (Auto) 0.8 th/mm3 (0.0-0.9); Mono % (Auto) 8.5 % (0.0-8.0); Neut # (Auto) 7.4 th/mm3 (1.8-7.7); Neut % (Auto) 76.9 % (16.0-70.0); Platelet Count 271 th/mm3 (150-450); Red Blood Count 2.96 mil/mm3 (4.00-5.30); Red Cell Distribution Width 17.4 % (11.6-17.2); White Blood Count 9.7 th/mm3 (4.0-11.0)
[2018-08-08 08:02] LABS: Activated Partial Thrombo Time 25.4 sec (24.3-30.1); Prothrombin Time 10.1 sec (9.8-11.6)
[2018-08-08 08:10] LABS: Alkaline Phosphatase 225 U/L (45-117); Total Protein 6.6 g/dL (6.4-8.2)
[2018-08-08 08:13] LABS: Alanine Aminotransferase 23 U/L (10-53); Albumin 2.2 g/dL (3.4-5.0); Anion Gap 12 meq/L (5-15); Aspartate Aminotransferase 35 U/L (15-37); Blood Urea Nitrogen 46 mg/dL (7-18); Calcium 8.4 mg/dL (8.5-10.1); Carbon Dioxide 21.2 meq/L (21.0-32.0); Chloride 103 meq/L (98-107); Glomerular Filtration Rate 16 mL/min (>89); Glucose,Random 340 mg/dL (74-106); Magnesium 2.2 mg/dL (1.5-2.5); Sodium 136 meq/L (136-145)
--- NOTE | 2018-08-08 09:24 | P.HPFP ---
History of Present Illness Primary Care Physician: NICHOLAS Benoit <Nura Virgen - 08/08/18 17:51> NICHOLAS Benoit <Oh Pope III 08/08/18 09:24> Chief Complaint: SOB <Oh Pope III 08/08/18 09:24> History of Present Illness: Ms Maynard is a 67 YO female w/PMHx CAD, HTN, HLD, CHF, COPD, DM, ESRD on HD present with 1 day of increasing shortness of breath and dry cough that began last night. Patient states she ran out of her nebulizer medication, she does not like Symbicort that has been prescribed in the past, has bad headaches, and describes her baseline O2 requirement as 3 L as needed. In the ED she is requiring 2L to be stable. She is on HD // and followed by Dr. Toro. She is also followed by Dr. Blankenship, pulmonology, has had thoracentesis 4-5 times recently. Her inkjet operator told her that if her large pleural effusion did not resolve she might need another thoracentesis. Thoracentesis usually yields 1200-1300ml she reports. She also reports Dr Jackson is her e commerce strategist. Her last stress test was 2 yrs ago. She takes Lasix for diuresis; Levemir 10 units BID and Novolog SSI spencer diabetes management. She produces urine. Denies any sick contacts. Lives with her . She denies smoking, alcohol intake, and other drugs. Denies chest pain, nausea, vomiting, diarrhea, constipation, and leg pain. <Niko CATARINOOh 08/08/18 15:03> - Diagnosis (1) CHF exacerbation (2) ESRD (end stage renal disease) on dialysis (3) Diabetes (4) Hypertension (5) Pleural effusion <Nura Virgen 08/08/18 17:51> (1) CHF exacerbation (2) ESRD (end stage renal disease) on dialysis (3) Diabetes (4) Hypertension (5) Pleural effusion <Olgadavid TORIBIOOh Fitch 08/08/18 17:00> Review of Systems Constitutional: Reports headache(s) <Niko TORIBIOOh Little 08/08/18 09:24> Eyes: Reports other (feels like she has a film over her eyes) <Oh Pope III 08/08/18 09:24> Ears, Nose, Mouth, and Throat: Denies dizziness, Denies nasal congestion < Oh Pope III 08/08/18 15:03> Cardiovascular: Reports shortness of breath, Denies chest pain <Niko TORIBIO Oh Fitch 08/08/18 09:24> Respiratory: Reports cough, Reports shortness of breath, Denies coughing up blood <Niko TORIBIOOh Fitch 08/08/18 09:24> Gastrointestinal: Denies nausea, Denies vomiting <Niko TORIBIOOh Fitch 09:24> Genitourinary: Denies painful urination <Niko TORIBIOOh Fitch 08/08/18 15:03> Neurologic: Reports headache(s) <Oh Pope III 08/08/18 15:03> PMFSH - History History Provided By: Patient <Oh Pope III 08/08/18 09:24> - Medical History Medical History: Medical History (Last Reviewed 08/08/18 @ 06:52 by Gladys Zheng MD) A-V fistula Anemia CAD (coronary artery disease) CHF (congestive heart failure) CHF (congestive heart failure) COPD (chronic obstructive pulmonary disease) COPD (chronic obstructive pulmonary disease) Chronic back pain Diabetes ESRD (end stage renal disease) on dialysis HLD (hyperlipidemia) Hemodialysis access, AV graft Hyperkalemia Hypertension Hypoxia <Nura Virgen Radha - 08/08/18 17:51> Medical History (Last Reviewed 08/08/18 @ 06:52 by Gladys Zheng MD) A-V fistula Anemia CAD (coronary artery disease) CHF (congestive heart failure) CHF (congestive heart failure) COPD (chronic obstructive pulmonary disease) COPD (chronic obstructive pulmonary disease) Chronic back pain Diabetes ESRD (end stage renal disease) on dialysis HLD (hyperlipidemia) Hemodialysis access, AV graft Hyperkalemia Hypertension Hypoxia <Oh Pope III - 08/08/18 09:24> - Surgical History Surgical History: Surgical History (Last Updated 08/08/18 @ 09:21 by Oh Pope III, MD, R2) H/O vaginal hysterectomy H/O laminectomy H/O: History of laser refractive surgery History of tonsillectomy Hx of appendectomy Hx of heart artery stent <Nura Virgen - 08/08/18 17:51> Surgical History (Last Updated 08/08/18 @ 09:21 by Oh Pope III, MD, R2) H/O vaginal hysterectomy H/O laminectomy H/O: History of laser refractive surgery History of tonsillectomy Hx of appendectomy Hx of heart artery stent <Oh Pope III 08/08/18 09:24> - Family History Family History: Family History (Last Reviewed 08/08/18 @ 06:52 by Gladys Zheng MD) Other ALS (amyotrophic lateral sclerosis) Multiple sclerosis <Nura Virgen 08/08/18 17:51> Family History (Last Reviewed 08/08/18 @ 06:52 by Gladys Zheng MD) Other ALS (amyotrophic lateral sclerosis) Multiple sclerosis <Oh Pope III 08/08/18 09:24> - Tobacco History Second Hand Smoke Exposure: No <Oh Pope III Little Suze 08/08/18 09:24> Tobacco Use In Past 30 Days: Yes (stopped smoking 16 years ago) <Oh Pope III Little 08/08/18 09:24> Smoking Status: Former smoker <Oh Pope III Little 08/08/18 09:24> Tobacco Type: Cigarettes <Oh Pope III Little 08/08/18 09:24> Packs Per Day: 1 (1ppd) <Oh Pope III 08/08/18 09:24> Years Smoked: 35 <Oh Pope III Little 08/08/18 09:24> Smoking End Date: The patient reports that she quit smoking 16 years ago. < Oh Pope III 08/08/18 09:24> - Alcohol History How Often Do You Have a Drink Containing Alcohol: Never <Oh Pope III 08/08/18 09:24> - Substance Use History Substance History: No History of Abuse <Oh Pope III 08/08/18 09:24> - Travel History Recent Travel in the [facility] Within the Last 8 Weeks: No <Oh Pope III 09/15 09:24> Recent Travel Out of the Country Within the Last 8 Weeks: No <Oh Pope III - 08/08/18 09:24> - Immunization History Tetanus Immunization: Unsure <Oh Pope III - 08/08/18 09:24> Hx Influenza Vaccine This Season: No <Oh Pope III - 08/08/18 09:24> Medications and Allergies Allergies Allergy/AdvReac Type Severity Reaction Status Date / Time propoxyphene Allergy Intermediate RASH Verified 07/18/18 07:41 <Nura Virgen - 08/08/18 17:51> Home Medications Medication Instructions Recorded Confirmed Type albuterol sulfate [Ventolin HFA] 2 puff INHALATION Q6H PRN 06/03/18 08/08/18 History aspirin 81 mg PO DAILY 06/03/18 08/08/18 History atorvastatin 40 mg PO HS 06/03/18 08/08/18 History budesonide-formoterol [Symbicort] 2 puff INHALATION BID 06/03/18 08/08/18 History carvedilol 6.25 mg PO BID 06/03/18 08/08/18 History clonidine HCl [Catapres] 0.1 mg PO TID PRN 06/03/18 08/08/18 History doxazosin 2 mg PO DAILY 06/03/18 08/08/18 History ferrous sulfate 325 mg PO DAILY 06/03/18 08/08/18 History furosemide 40 mg PO DAILY 06/03/18 08/08/18 History isosorbide mononitrate 60 mg PO DAILY 06/03/18 08/08/18 History nifedipine 30 mg PO BID 06/03/18 08/08/18 History <Nura Virgen - 08/08/18 17:51> Active Medications: Active Medications Acetaminophen (Tylenol) 650 mg PO UNSCH PRN PRN Reason: SEE LABEL COMMENTS Albuterol (Albuterol Neb (Prn)) 2.5 mg NEB Q2HR NEB PRN PRN Reason: DYSPNEA Albuterol (Duoneb Neb (Marie)) 1 ampul NEB Q6HR WHILE AWAKE NEB MARIE Last Admin: 08/08/18 15:37 Dose: Not Given Aspirin (Ecotrin) 81 mg PO DAILY MARIE Last Admin: 08/08/18 17:35 Dose: 81 mg Atorvastatin Calcium (Lipitor) 40 mg PO HS [facility] Carvedilol (Coreg) 6.25 mg PO BID [facility] Last Admin: 08/08/18 17:36 Dose: 6.25 mg Clonidine HCl (Catapres) 0.1 mg PO UNSCH PRN PRN Reason: SEE LABEL COMMENTS Clonidine HCl (Catapres) 0.1 mg PO Q12HR [facility] Dextrose (D50w Vial) 50 ml IV.PUSH UNSCH PRN PRN Reason: PER HYPOGLYCEMIA PROTOCOL Diphenhydramine HCl (Benadryl) 25 mg PO UNSCH PRN PRN Reason: SEE LABEL COMMENTS Doxazosin Mesylate (Cardura) 2 mg PO DAILY [facility] Last Admin: 08/08/18 17:34 Dose: 2 mg Epoetin Low (Epogen Inj) 10,000 unit IV.PUSH UNSCH PRN PRN Reason: SEE LABEL COMMENTS Last Admin: 08/08/18 14:00 Dose: 10,000 unit Ferrous Sulfate (Ferosul) 325 mg PO DAILY [facility] Furosemide (Lasix Inj) 40 mg IV.PUSH BID@0900,1800 [facility] Last Admin: 08/08/18 17:36 Dose: 40 mg Gelatin (Gelfoam 12 Mm/7 Mm Topical) 1 foam TOPICAL UNSCH PRN PRN Reason: help stop bleeding from site Last Admin: 08/08/18 14:01 Dose: 1 foam Gentamicin Sulfate (Gentamicin Inj) 20 mg OTHER WITH DIALYSIS PRN PRN Reason: Dwell Gentamycin Lock Glucagon (Glucagon Inj) 1 mg OTHER UNSCH PRN PRN Reason: for Hypoglycemia Protocol Heparin Sodium (Porcine) (Heparin Inj) 8,000 units OTHER WITH DIALYSIS PRN PRN Reason: for machine prime Heparin Sodium (Porcine) (Heparin Inj) 1,000 units OTHER WITH DIALYSIS PRN PRN Reason: Dwell Heparin to Fill Catheter Hydralazine HCl (Apresoline) 100 mg PO TID [facility] Last Admin: 08/08/18 17:35 Dose: 100 mg Albumin Human (Flexbumin 25% Inj) 100 mls @ 60 mls/hr IV.SIG WITH DIALYSIS PRN PRN Reason: hypotension / volume replace Sodium Chloride (Ns Inj) 1,000 mls @ 0 mls/hr OTHER .Q0M PRN PRN Reason: for prime and rinse back Sodium Chloride (Ns Inj) 1,000 mls @ 200 mls/hr OTHER .Q5H PRN PRN Reason: for dialyzer flush PRN Sodium Chloride (Ns Inj) 1,000 mls @ 0 mls/hr IV.CONT .Q0M PRN PRN Reason: hypotension / volume replace Insulin Aspart (Novolog Insulin Correctional Sugar Inj) 0 unit SQ ACHS [facility]; Protocol Last Admin: 08/08/18 17:38 Dose: Not Given Insulin Detemir (Levemir Inj) 10 unit SQ BID [facility] Isosorbide Mononitrate (Imdur) 60 mg PO DAILY [facility] Last Admin: 08/08/18 17:35 Dose: 60 mg Lactobacillus Acidophilus (Lactinex) 1 tab PO TID [facility] Last Admin: 08/08/18 17:35 Dose: 1 tab Mannitol (Mannitol Inj) 12.5 gm IV.PUSH UNSCH PRN PRN Reason: hypotension / volume replace Nifedipine (Procardia Xl) 30 mg PO BID [facility] Last Admin: 08/08/18 17:48 Dose: 30 mg Nitroglycerin (Nitrostat Sl) 0.4 mg SL Q5M PRN PRN Reason: CHEST PAIN Ondansetron HCl (Zofran Inj) 4 mg IV.PUSH UNSCH PRN PRN Reason: NAUSEA OR VOMITING Senna/Docusate Sodium (Jocelyn-Colace) 1 tab PO BID PRN PRN Reason: CONSTIPATION Sodium Chloride (Ns Flush) 5 ml IV.FLUSH UNSCH PRN PRN Reason: flush each lumen during HD <Nura Virgen - 08/08/18 17:51> Active Medications Generic Name Dose Route Start Last Admin Trade Name Freq PRN Reason Stop Dose Admin Acetaminophen 650 mg 08/08/18 10:35 Tylenol PO UNSCH PRN SEE LABEL COMMENTS Albuterol 2.5 mg 08/08/18 09:45 Albuterol Neb (Prn) NEB Q2HR NEB PRN DYSPNEA Albuterol 1 ampul 08/08/18 14:00 Duoneb Neb (Marie) NEB Q6HR WHILE AWAKE NEB MARIE Aspirin 81 mg 08/08/18 11:00 Ecotrin PO DAILY [facility] Atorvastatin Calcium 40 mg 08/08/18 21:00 Lipitor PO HS [facility] Carvedilol 6.25 mg 08/08/18 11:00 Coreg PO BID [facility] Clonidine HCl 100 mcg 08/08/18 09:46 Clonidine (Nicu) 20 Mcg/Ml Liq PO TID PRN Respiratory Distress Clonidine HCl 0.1 mg 08/08/18 10:35 Catapres PO UNSCH PRN SEE LABEL COMMENTS Dextrose 50 ml 08/08/18 09:50 D50w Vial IV.PUSH UNSCH PRN PER HYPOGLYCEMIA PROTOCOL Diphenhydramine HCl 25 mg 08/08/18 10:35 Benadryl PO UNSCH PRN SEE LABEL COMMENTS Doxazosin Mesylate 2 mg 08/08/18 11:00 Cardura PO DAILY [facility] Epoetin Low 10,000 unit 08/08/18 10:35 08/08/18 14:00 Epogen Inj IV.PUSH 10,000 unit UNSCH PRN Administration SEE LABEL COMMENTS Ferrous Sulfate 325 mg 08/09/18 09:00 Ferosul PO DAILY [facility] Furosemide 40 mg 08/08/18 18:00 Lasix Inj IV.PUSH BID@0900,1800 [facility] Gelatin 1 foam 08/08/18 10:35 08/08/18 14:01 Gelfoam 12 Mm/7 Mm Topical TOPICAL 1 foam UNSCH PRN Administration help stop bleeding from site Gentamicin Sulfate 20 mg 08/08/18 10:35 Gentamicin Inj OTHER WITH DIALYSIS PRN Dwell Gentamycin Lock Glucagon 1 mg 08/08/18 09:50 Glucagon Inj OTHER UNSCH PRN for Hypoglycemia Protocol Heparin Sodium (Porcine) 8,000 units 08/08/18 10:35 Heparin Inj OTHER WITH DIALYSIS PRN for machine prime Heparin Sodium (Porcine) 1,000 units 08/08/18 10:35 Heparin Inj OTHER WITH DIALYSIS PRN Dwell Heparin to Fill Catheter Hydralazine HCl 100 mg 08/08/18 13:00 Apresoline PO TID [facility] Albumin Human 100 mls @ 60 mls/hr 08/08/18 10:35 Flexbumin 25% Inj IV.SIG WITH DIALYSIS PRN hypotension / volume replace Sodium Chloride 1,000 mls @ 0 mls/hr 08/08/18 10:35 Ns Inj OTHER .Q0M PRN for prime and rinse back As Directed Sodium Chloride 1,000 mls @ 200 mls/hr 08/08/18 10:35 Ns Inj OTHER .Q5H PRN for dialyzer flush PRN Sodium Chloride 1,000 mls @ 0 mls/hr 08/08/18 10:35 Ns Inj IV.CONT .Q0M PRN hypotension / volume replace As Directed Insulin Aspart 0 unit 08/08/18 12:00 Novolog Insulin Correctional Sugar Inj SQ ACHS [facility] Protocol Insulin Detemir 10 unit 08/08/18 11:00 Levemir Inj SQ BID [facility] Isosorbide Mononitrate 60 mg 08/08/18 11:00 Imdur PO DAILY [facility] Lactobacillus Acidophilus 1 tab 08/08/18 13:00 Lactinex PO TID [facility] Mannitol 12.5 gm 08/08/18 10:35 Mannitol Inj IV.PUSH UNSCH PRN hypotension / volume replace Nifedipine 30 mg 08/08/18 11:00 Procardia Xl PO BID [facility] Nitroglycerin 0.4 mg 08/08/18 10:35 Nitrostat Sl SL Q5M PRN CHEST PAIN Ondansetron HCl 4 mg 08/08/18 10:35 Zofran Inj IV.PUSH UNSCH PRN NAUSEA OR VOMITING Senna/Docusate Sodium 1 tab 08/08/18 09:35 Jocelyn-Colace PO BID PRN CONSTIPATION Sodium Chloride 5 ml 08/08/18 10:35 Ns Flush IV.FLUSH UNSCH PRN flush each lumen during HD <Oh Pope III - 08/08/18 15:03> Exam Vital signs: Vital Signs 08/08/18 06:30 08/08/18 06:35 08/08/18 08:32 Temperature 97.5 F L Pulse Rate 70 66 Respiratory Rate 16 18 18 Blood Pressure 116/58 L 175/75 H Pulse Oximetry 92 L 96 98 08/08/18 11:15 08/08/18 16:45 Temperature 97.7 F Pulse Rate 75 80 Respiratory Rate 16 16 Blood Pressure 200/81 H 171/76 H Pulse Oximetry 97 95 Intake & Output 08/07/18 08/08/18 08/08/18 18:59 06:59 18:59 Output Total 5000 / 5000 Balance -5000 / -5000 Weight 68.6 kg Output: Hemodialysis Amount 5000 / 5000 Other: Weight On Admission 68.6 kg <Nura Virgen - 08/08/18 17:51> Vital Signs 08/08/18 06:30 08/08/18 06:35 08/08/18 08:32 Temperature 97.5 F L Pulse Rate 70 66 Respiratory Rate 16 18 18 Blood Pressure 116/58 L 175/75 H Pulse Oximetry 92 L 96 98 <Oh Pope III - 08/08/18 09:24> Narrative: GENERAL: Elderly female lying in bed with nasal cannula in place speaking in [id number] sentences. SKIN: Warm and dry. Significant healed wound over medial left calf from dog bite 1-2 years ago and chronic skin changes over LEs bilaterally on dorsal aspect of feet and between toes. HEAD: Normocephalic. EYES: No scleral icterus. No injection or drainage. NECK: Supple, trachea midline. No lymphadenopathy. CARDIOVASCULAR: Regular rate and rhythm without murmurs, gallops, or rubs. Weak pedal pulses. RESPIRATORY: Crackles heard bilaterally approx. group home up from lung bases with Left worse than right. No accessory muscle use. GASTROINTESTINAL: Abdomen soft, non-tender, nondistended. +BS. MUSCULOSKELETAL: No cyanosis; however, 2+ pitting edema bilaterally to the knee. BACK: Nontender without obvious deformity. <Oh Pope III H - 08/08/18 17:02> Results - Labs Result diagrams: 08/08/18 07:00 08/08/18 07:00 <Nura Virgen L - 08/08/18 17:51> Abnormal lab results 08/08/18 08/08/18 08/08/18 Range/Units 07:00 07:00 07:00 RBC 2.96 L (4.00-5.30) mil/mm3 Hgb 9.1 L (11.6-15.3) gm/dL Hct 27.9 L (35.0-46.0) % RDW 17.4 H (11.6-17.2) % Neut % (Auto) 76.9 H (16.0-70.0) % [place] % (Auto) 8.5 H (0.0-8.0) % BUN 46 H (7-18) mg/dL Creatinine 3.00 H (0.50-1.00) mg/dL Estimated GFR 16 L (>89) mL/min POC Glucose (68-110) mg/dl Random Glucose 340 H (74-106) mg/dL Calcium 8.4 L (8.5-10.1) mg/dL Alkaline Phosphatase 225 H (45-117) U/L B-Natriuretic Peptide 3442 H (0-100) pg/mL Albumin 2.2 L (3.4-5.0) g/dL 08/08/18 08/08/18 Range/Units 15:00 16:47 RBC (4.00-5.30) mil/mm3 Hgb (11.6-15.3) gm/dL Hct (35.0-46.0) % RDW (11.6-17.2) % Neut % (Auto) (16.0-70.0) % [place] % (Auto) (0.0-8.0) % BUN (7-18) mg/dL Creatinine (0.50-1.00) mg/dL Estimated GFR (>89) mL/min POC Glucose 173 H 190 H (68-110) mg/dl Random Glucose (74-106) mg/dL Calcium (8.5-10.1) mg/dL Alkaline Phosphatase (45-117) U/L B-Natriuretic Peptide (0-100) pg/mL Albumin (3.4-5.0) g/dL Short CBC 08/08/18 Range/Units 07:00 WBC 9.7 (4.0-11.0) th/mm3 Hgb 9.1 L (11.6-15.3) gm/dL Hct 27.9 L (35.0-46.0) % Plt Count 271 (150-450) th/mm3 BMP 08/08/18 07:00 Sodium 136 Potassium 5.0 Chloride 103 Carbon Dioxide 21.2 BUN 46 H Creatinine 3.00 H Calcium 8.4 L Cardiac Enzymes 08/08/18 08/08/18 Range/Units 10:40 11:09 Total Creatine Kinase 48 32 (26-192) U/L Troponin I 0.04 0.04 (0.02-0.05) ng/mL Liver Function 08/08/18 Range/Units 07:00 Total Bilirubin 0.2 (0.2-1.0) mg/dL AST 35 (15-37) U/L ALT 23 (10-53) U/L Alkaline Phosphatase 225 H (45-117) U/L Albumin 2.2 L (3.4-5.0) g/dL <Nura Virgen L - 08/08/18 17:51> Abnormal lab results 08/08/18 08/08/18 08/08/18 Range/Units 07:00 07:00 07:00 RBC 2.96 L (4.00-5.30) mil/mm3 Hgb 9.1 L (11.6-15.3) gm/dL Hct 27.9 L (35.0-46.0) % RDW 17.4 H (11.6-17.2) % Neut % (Auto) 76.9 H (16.0-70.0) % [place] % (Auto) 8.5 H (0.0-8.0) % BUN 46 H (7-18) mg/dL Creatinine 3.00 H (0.50-1.00) mg/dL Estimated GFR 16 L (>89) mL/min Random Glucose 340 H (74-106) mg/dL Calcium 8.4 L (8.5-10.1) mg/dL Alkaline Phosphatase 225 H (45-117) U/L B-Natriuretic Peptide 3442 H (0-100) pg/mL Albumin 2.2 L (3.4-5.0) g/dL Short CBC 08/08/18 Range/Units 07:00 WBC 9.7 (4.0-11.0) th/mm3 Hgb 9.1 L (11.6-15.3) gm/dL Hct 27.9 L (35.0-46.0) % Plt Count 271 (150-450) th/mm3 BMP 08/08/18 07:00 Sodium 136 Potassium 5.0 Chloride 103 Carbon Dioxide 21.2 BUN 46 H Creatinine 3.00 H Calcium 8.4 L Liver Function 08/08/18 Range/Units 07:00 Total Bilirubin 0.2 (0.2-1.0) mg/dL AST 35 (15-37) U/L ALT 23 (10-53) U/L Alkaline Phosphatase 225 H (45-117) U/L Albumin 2.2 L (3.4-5.0) g/dL <Oh Pope III H - 08/08/18 15:03> - Imaging Impressions Chest X-Ray 08/08/18 06:57 CONCLUSION: Persistent dense consolidation with associated effusion in the left lung base. Improving aeration right lung base with decreasing airspace disease. Interval removal of tunneled dialysis catheter. <Nura Virgen - 08/08/18 17:51> Impressions Chest X-Ray 08/08/18 06:57 CONCLUSION: Persistent dense consolidation with associated effusion in the left lung base. Improving aeration right lung base with decreasing airspace disease. Interval removal of tunneled dialysis catheter. <Oh Pope III H - 08/08/18 09:24> Caprini VTE Risk Assessment Caprini VTE Risk Assessment: Moderate/High Risk (score >= 2) <Oh Pope III H - 08/08/18 15:03> Caprini Risk Assessment Model: Point Value = 1 Point Value = 2 Point Value = 3 Point Value = 5 Age 41-60 Minor surgery BMI > 25 kg/m2 Swollen legs Varicose veins or History of unexplained or recurrent spontaneous Oral contraceptives or hormone replacement Sepsis (< 1 month) Serious lung disease, including pneumonia (< 1 month) Abnormal pulmonary function Acute myocardial infarction Congestive heart failure (< 1 month) History of inflammatory bowel disease Medical patient at bed rest Age 61-74 Arthroscopic surgery Major open surgery (> 45 min) Laparoscopic surgery (> 45 min) Malignancy Confined to bed (> 72 hours) Immobilizing plaster cast Central venous access Age >= 75 History of VTE Family history of VTE Factor V Leiden Prothrombin [id number] Lupus anticoagulant Anticardiolipin antibodies Elevated serum homocysteine Heparin-induced thrombocytopenia Other congenital or acquired thrombophilia Stroke (< 1 month) Elective arthroplasty Hip, pelvis, or leg fracture Acute spinal cord injury (< 1 month) <Nura Virgen - 08/08/18 17:51> Prophylaxis Regimen: Total Risk Factor Score Risk Level Prophylaxis Regimen 0-1 Low Early ambulation 2 Moderate Order ONE of the following: *Sequential Compression Device (SCD) *Heparin 5000 units SQ BID 3-4 Higher Order ONE of the following medications: *Heparin 5000 units SQ TID *Enoxaparin/Lovenox 40 mg SQ daily (WT < 150 kg, CrCl > 30 mL/min) *Enoxaparin/Lovenox 30 mg SQ daily (WT < 150 kg, CrCl > 10-29 mL/min) *Enoxaparin/Lovenox 30 mg SQ BID (WT < 150 kg, CrCl > 30 mL/min) AND/OR *Sequential Compression Device (SCD) 5 or more Highest Order ONE of the following medications: *Heparin 5000 units SQ TID (Preferred with Epidurals) *Enoxaparin/Lovenox 40 mg SQ daily (WT < 150 kg, CrCl > 30 mL/min) *Enoxaparin/Lovenox 30 mg SQ daily (WT < 150 kg, CrCl > 10-29 mL/min) *Enoxaparin/Lovenox 30 mg SQ BID (WT < 150 kg, CrCl > 30 mL/min) AND *Sequential Compression Device (SCD) <Nura Virgen - 08/08/18 17:51> Assessment and Plan - Assessment (1) CHF exacerbation Code(s): I50.9 - Heart failure, unspecified Status: Acute (2) ESRD (end stage renal disease) on dialysis Code(s): N18.6 - End stage renal disease; Z99.2 - Dependence on renal dialysis Status: Acute (3) Diabetes Code(s): E11.9 - Type 2 diabetes mellitus without complications Status: Acute (4) Hypertension Code(s): I10 - Essential (primary) hypertension Status: Acute (5) Pleural effusion Code(s): J90 - Pleural effusion, not elsewhere classified Status: Acute <Nura Virgen - 08/08/18 17:51> (1) CHF exacerbation Code(s): I50.9 - Heart failure, unspecified Status: Acute (2) ESRD (end stage renal disease) on dialysis Code(s): N18.6 - End stage renal disease; Z99.2 - Dependence on renal dialysis Status: Acute (3) Diabetes Code(s): E11.9 - Type 2 diabetes mellitus without complications Status: Acute (4) Hypertension Code(s): I10 - Essential (primary) hypertension Status: Acute (5) Pleural effusion Code(s): J90 - Pleural effusion, not elsewhere classified Status: Acute <Oh Pope III H - 08/08/18 17:00> - Assessment and Plan 67 YO female w/PMHx CAD, HTN, HLD, CHF, COPD, DM, ESRD on HD M/W/F presents with 1 day of increasing shortness of breath, dry cough and FRANKEL with BNP 3442, Troponin 0.04, afebrile and serum glucose 340. There are no CPs or nausea. DDx is CHF exacerbation, fluid overload, pleural effusion. Pt admitted for observation and diuresis, HD, and ACS r/o to ensure no cardiac ischemia. Say Toro and Krzysztof are being consulted. Impression: -CXR showing pleural effusion left side -BNP 3442 with recent result of 3766 on 8/27, 4432 on 06/27, and in 700s in February and March 2018 -BUN 46/Cr 3.0 -eGFR 16 -Serum glucose 3 -Ca 8.4, w/albumin 2.2--but corrected Ca wnl -Alk Phos 225 -INR wnl -Troponins: 0.04 -Total CK: 32 -EKG w/NSR and borderline ST changes in anteroseptal leads since EKG 07/25 Cardiovascular 1. CHF Exacerbation/fluid overload -Holding home Lasix 40 mg BID PO -Lasix 40 mg IV BID -Daily weights -Strict I/Os -Fluid restriction 1.5L daily -Trend EKGs and cardiac enzymes -Tele -Continue home Nitrostat 0.4 mg SL Q5M PRN -Isosorbide mononitrate 60 mg PO daily 2. HTN -Hydralazine 100 mg TID -Coreg 6.25 mg BID -Nifedipine 30 mg BID -Clonidine 0.1 mg q6h PRN SBP >180 and/or DBP>100 -Cardura 2 mg daily 3. HLD -Continue home Atorvastatin Pulmonary 1. SOB with Pleural effusion -Follows with Dr Blankenship who has been consulted -Lasix as above 2. COPD -Albuterol nebs q2h PRN -Duonebs q6h Renal 1. ESRD on HD M//, follows with Dr Toro -HD today if possible -Avoid nephrotoxic medications -Avoid gadolinium Endocrine 1. Diabetes -Continue home Levemir 10 units BID, will continue this dosing -Continue home Novolog SSI (Low) -Diabetic diet 1800 calories -ASA 81 mg chew daily Heme 1. Anemia -Continue home FeSO4 325 mg daily -CBC with Hgb 9.1 FEN/GI/PPx Fluids: PO fluid restriction 1.5 L Electrolytes: wnl, will follow with BMP/CMP; to be aided by nephrology Nutrition: diabetic diet as above GI: no PPx indicated PPx: anticoagulation with Heparin in HD -Lovenox 40 mg subcu daily Pt home meds: -Continue Lactobacillus 1 tab PO TID Pt sw Dr Mcqueen and DW Dr Viridiana Virgen <Niko TORIBIOOh Fitch - 08/08/18 17:02> - Attending Attestation The exam, history, and the medical decision-making described in the above note were completed with the assistance of the resident physician. I reviewed and agree with the findings presented. I attest that I had a [id number] encounter with the patient on the same day, and personally performed and documented my assessment and findings in the medical record. <Nura Virgen - 08/08/18 17:51> <Oh Pope III Filed: 08/08/18 17:00> (3) Diabetes Qualifiers: Diabetes mellitus ferry terminal agent insulin use: with ferry terminal agent use <Nura Virgen Filed: 08/08/18 17:51> (3) Diabetes Qualifiers: Diabetes mellitus ferry terminal agent insulin use: with ferry terminal agent use <Oh Pope III Last Filed: 08/08/18 17:00> (3) Diabetes Qualifiers: Diabetes mellitus retirement insulin use: with retirement use <Nura Virgen Filed: 08/08/18 17:51> (3) Diabetes Qualifiers: Diabetes mellitus retirement insulin use: with ferry terminal agent use
[2018-08-08] MEDS ORDERED: Senna/Docusate Sodium 8.6/50 MG Tablet PO PRN (09:35)
[2018-08-08] MEDS ORDERED: cloNIDine Susp (NICU) 20 MCG/ML 30 ML Bottle PO PRN (09:46)
[2018-08-08] MEDS ORDERED: Dextrose 50% in Water 50 ML Vial IV.PUSH PRN (09:50)
[2018-08-08] MEDS ORDERED: Acetaminophen 325 MG Tablet PO PRN (10:35)
[2018-08-08] MEDS ORDERED: Albumin Human 25% Inj 100 ML IV.SIG PRN (10:35)
[2018-08-08] MEDS ORDERED: Sod Chloride 0.9% Inj 1,000 ML OTHER PRN ×2 (10:35)
[2018-08-08] MEDS ORDERED: Gelatin 12 MM/7 MM Topical Foam TOPICAL PRN (10:35)
[2018-08-08] MEDS ORDERED: Sod Chloride 0.9% Inj 1,000 ML IV.CONT PRN (10:35)
[2018-08-08] MEDS ORDERED: Heparin 10,000 UNITS/10 ML Vial (for IV use) OTHER PRN ×2 (10:35)
[2018-08-08 11:26] LABS: Troponin I 0.04 ng/mL (0.02-0.05)
[2018-08-08 12:17] LABS: Troponin I 0.04 ng/mL (0.02-0.05)
--- NOTE | 2018-08-08 14:54 | P.CONNP ---
<Jessica Clemons - Last Filed: 08/08/18 14:35> History of Present Illness Service: Nephrology Consult date: 08/08/18 Requesting Physician: Oh Pope III Reason for Consult: End stage renal disease on hemodialysis Primary Care Provider: NICHOLAS Benoit Family Provider: NICHOLAS Benoit Chief Complaint: SOB History of Present Illness: Patient is a 67 year old female past medical history significant for diabetes, hypertension, and end-stage renal disease. Presents to the [facility] emergency department with shortness of breath that she reports has become worse since yesterday. 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 Blankenship and that he told her to come to the emergency department for evaluation if shortness of breath worsens as she continued to have a large effusion on examination. She denies any fevers, worsening cough or congestion, neck pain, abdominal pain, vomiting, diarrhea, urinary symptoms, or neurologic symptoms. Nephrology is consulted for management of end stage renal disease on hemodialysis. Has AVG. [facility] - History History Provided By: Patient - Medical History Medical History: Medical History (Last Reviewed 08/08/18 @ 06:52 by Gladys Zheng MD) A-V fistula Anemia CAD (coronary artery disease) CHF (congestive heart failure) CHF (congestive heart failure) COPD (chronic obstructive pulmonary disease) COPD (chronic obstructive pulmonary disease) Chronic back pain Diabetes ESRD (end stage renal disease) on dialysis HLD (hyperlipidemia) Hemodialysis access, AV graft Hyperkalemia Hypertension Hypoxia - Surgical History Surgical History: Surgical History (Last Updated 08/08/18 @ 09:21 by Oh Pope III, MD, R2) H/O vaginal hysterectomy H/O laminectomy H/O: History of laser refractive surgery History of tonsillectomy Hx of appendectomy Hx of heart artery stent - Family History Family History: Family History (Last Reviewed 08/08/18 @ 06:52 by Gladys Zheng MD) Other ALS (amyotrophic lateral sclerosis) Multiple sclerosis - Tobacco History Second Hand Smoke Exposure: No Tobacco Use In Past 30 Days: Yes (stopped smoking 16 years ago) Smoking Status: Former smoker Tobacco Type: Cigarettes Packs Per Day: 1 (1ppd) Years Smoked: 35 Smoking End Date: The patient reports that she quit smoking 16 years ago. - Alcohol History How Often Do You Have a Drink Containing Alcohol: Never - Substance Use History Substance History: No History of Abuse - Travel History Recent Travel in the [place] Within the Last 8 Weeks: No Recent Travel Out of the Country Within the Last 8 Weeks: No - Immunization History Tetanus Immunization: Unsure Hx Influenza Vaccine This Season: No Medications and Allergies Allergies Allergy/AdvReac Type Severity Reaction Status Date / Time propoxyphene Allergy Intermediate RASH Verified 07/18/18 07:41 Home Medications Medication Instructions Recorded Confirmed Type albuterol sulfate [Ventolin HFA] 2 puff INHALATION Q6H PRN 06/03/18 08/08/18 History aspirin 81 mg PO DAILY 06/03/18 08/08/18 History atorvastatin 40 mg PO HS 06/03/18 08/08/18 History budesonide-formoterol [Symbicort] 2 puff INHALATION BID 06/03/18 08/08/18 History carvedilol 6.25 mg PO BID 06/03/18 08/08/18 History clonidine HCl [Catapres] 0.1 mg PO TID PRN 06/03/18 08/08/18 History doxazosin 2 mg PO DAILY 06/03/18 08/08/18 History ferrous sulfate 325 mg PO DAILY 06/03/18 08/08/18 History furosemide 40 mg PO DAILY 06/03/18 08/08/18 History isosorbide mononitrate 60 mg PO DAILY 06/03/18 08/08/18 History nifedipine 30 mg PO BID 06/03/18 08/08/18 History Active Medications: Active Medications Acetaminophen (Tylenol) 650 mg PO UNSCH PRN PRN Reason: SEE LABEL COMMENTS Albuterol (Albuterol Neb (Prn)) 2.5 mg NEB Q2HR NEB PRN PRN Reason: DYSPNEA Albuterol (Duoneb Neb (Marie)) 1 ampul NEB Q6HR WHILE AWAKE NEB MARIE Aspirin (Ecotrin) 81 mg PO DAILY MARIE Atorvastatin Calcium (Lipitor) 40 mg PO HS MARIE Carvedilol (Coreg) 6.25 mg PO BID MARIE Clonidine HCl (Clonidine (Nicu) 20 Mcg/Ml Liq) 100 mcg PO TID PRN PRN Reason: Respiratory Distress Clonidine HCl (Catapres) 0.1 mg PO UNSCH PRN PRN Reason: SEE LABEL COMMENTS Dextrose (D50w Vial) 50 ml IV.PUSH UNSCH PRN PRN Reason: PER HYPOGLYCEMIA PROTOCOL Diphenhydramine HCl (Benadryl) 25 mg PO UNSCH PRN PRN Reason: SEE LABEL COMMENTS Doxazosin Mesylate (Cardura) 2 mg PO DAILY MARIE Epoetin Low (Epogen Inj) 10,000 unit IV.PUSH UNSCH PRN PRN Reason: SEE LABEL COMMENTS Last Admin: 08/08/18 14:00 Dose: 10,000 unit Ferrous Sulfate (Ferosul) 325 mg PO DAILY MARIE Furosemide (Lasix Inj) 40 mg IV.PUSH BID@0900,1800 MARIE Gelatin (Gelfoam 12 Mm/7 Mm Topical) 1 foam TOPICAL UNSCH PRN PRN Reason: help stop bleeding from site Last Admin: 08/08/18 14:01 Dose: 1 foam Gentamicin Sulfate (Gentamicin Inj) 20 mg OTHER WITH DIALYSIS PRN PRN Reason: Dwell Gentamycin Lock Glucagon (Glucagon Inj) 1 mg OTHER UNSCH PRN PRN Reason: for Hypoglycemia Protocol Heparin Sodium (Porcine) (Heparin Inj) 8,000 units OTHER WITH DIALYSIS PRN PRN Reason: for machine prime Heparin Sodium (Porcine) (Heparin Inj) 1,000 units OTHER WITH DIALYSIS PRN PRN Reason: Dwell Heparin to Fill Catheter Hydralazine HCl (Apresoline) 100 mg PO TID MARIE Albumin Human (Flexbumin 25% Inj) 100 mls @ 60 mls/hr IV.SIG WITH DIALYSIS PRN PRN Reason: hypotension / volume replace Sodium Chloride (Ns Inj) 1,000 mls @ 0 mls/hr OTHER .Q0M PRN PRN Reason: for prime and rinse back Sodium Chloride (Ns Inj) 1,000 mls @ 200 mls/hr OTHER .Q5H PRN PRN Reason: for dialyzer flush PRN Sodium Chloride (Ns Inj) 1,000 mls @ 0 mls/hr IV.CONT .Q0M PRN PRN Reason: hypotension / volume replace Insulin Aspart (Novolog Insulin Correctional Sugar Inj) 0 unit SQ ACHS MARIE; Protocol Insulin Detemir (Levemir Inj) 10 unit SQ BID MARIE Isosorbide Mononitrate (Imdur) 60 mg PO DAILY [facility] Lactobacillus Acidophilus (Lactinex) 1 tab PO TID MARIE Mannitol (Mannitol Inj) 12.5 gm IV.PUSH UNSCH PRN PRN Reason: hypotension / volume replace Nifedipine (Procardia Xl) 30 mg PO BID MARIE Nitroglycerin (Nitrostat Sl) 0.4 mg SL Q5M PRN PRN Reason: CHEST PAIN Ondansetron HCl (Zofran Inj) 4 mg IV.PUSH UNSCH PRN PRN Reason: NAUSEA OR VOMITING Senna/Docusate Sodium (Jocelyn-Colace) 1 tab PO BID PRN PRN Reason: CONSTIPATION Sodium Chloride (Ns Flush) 5 ml IV.FLUSH UNSCH PRN PRN Reason: flush each lumen during HD Exam Vital signs: Vital Signs 08/08/18 06:30 08/08/18 06:35 08/08/18 08:32 Temperature 97.5 F L Pulse Rate 70 66 Respiratory Rate 16 18 18 Blood Pressure 116/58 L 175/75 H Pulse Oximetry 92 L 96 98 08/08/18 11:15 Temperature Pulse Rate 75 Respiratory Rate 16 Blood Pressure 200/81 H Pulse Oximetry 97 Narrative: GENERAL: Alert and oriented. SKIN: Warm and dry. No rashes. HEAD: Atraumatic. Normocephalic. EYES: Pupils equal and round. No scleral icterus. No injection or drainage. CARDIOVASCULAR: Regular rate and rhythm. No murmur appreciated. Intact and equal peripheral pulses. Right AVG RESPIRATORY: No accessory muscle use. Lung sounds diminished. GASTROINTESTINAL: Abdomen soft, non-tender, nondistended. MUSCULOSKELETAL: No obvious deformities. No clubbing. No cyanosis. Moderate dependent edema. Results - Lab Results 08/08/18 07:00 08/08/18 07:00 Most recent lab results Calcium 8.4 mg/dL (8.5-10.1) L 08/08/18 07:00 Magnesium 2.2 mg/dL (1.5-2.5) 08/08/18 07:00 Assessment and Plan - Plan 1. End stage renal disease. End stage renal disease on hemodialysis on Wednesday, Wednesday, and Wednesday. Plan Avoid IVF administration Avoid gadolinium Will monitor labs Seen during hemodialysis tolerating well, will remove fluid as tolerated. 2. Pleural effusion Chest Xray with effusion in left lung base Pulmonary consulted possible thoracentesis 3. Diabetes Maintain blood sugars between 140 mg/dl top 180 mg/dl 4. Hypertension Hypertensive. Expect improvement after hemodialysis. On coreg, hydralazine, nifedipine, an PRN clonidine. Will add scheduled clonidine. 5. 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 fistula Anemia CAD (coronary artery disease) CHF (congestive heart failure) CHF (congestive heart failure) COPD (chronic obstructive pulmonary disease) COPD (chronic obstructive pulmonary disease) Chronic back pain Diabetes ESRD (end stage renal disease) on dialysis HLD (hyperlipidemia) Hemodialysis access, AV graft Hyperkalemia Hypertension Hypoxia - Surgical History Surgical History: Surgical History (Last Updated 08/08/18 @ 09:21 by Oh Pope III, MD, R2) H/O vaginal hysterectomy H/O laminectomy H/O: History of laser refractive surgery History of tonsillectomy Hx of appendectomy Hx of heart artery stent - Family History Family History: Family History (Last Reviewed 08/08/18 @ 06:52 by Gladys Zheng MD) Other ALS (amyotrophic lateral sclerosis) Multiple sclerosis Medications and Allergies Active Medications: Active Medications Acetaminophen (Tylenol) 650 mg PO UNSCH PRN PRN Reason: SEE LABEL COMMENTS Hydrocodone Bitart/Acetaminophen ([place] 5/325) 1 tab PO Q6H PRN PRN Reason: PAIN SCALE 6 TO 10 Last Admin: 08/09/18 04:12 Dose: 1 tab Albuterol (Albuterol Neb (Prn)) 2.5 mg NEB Q2HR NEB PRN PRN Reason: DYSPNEA Albuterol (Duoneb Neb (Marie)) 1 ampul NEB Q6HR WHILE AWAKE NEB MARIE Last Admin: 08/09/18 12:54 Dose: 1 ampul Aspirin (Ecotrin) 81 mg PO DAILY MARIE Last Admin: 08/09/18 08:33 Dose: 81 mg Atorvastatin Calcium (Lipitor) 40 mg PO HS [facility] Last Admin: 08/08/18 20:36 Dose: 40 mg Carvedilol (Coreg) 6.25 mg PO BID MRAIE Last Admin: 08/09/18 08:33 Dose: 6.25 mg Clonidine HCl (Catapres) 0.1 mg PO UNSCH PRN PRN Reason: SEE LABEL COMMENTS Clonidine HCl (Catapres) 0.1 mg PO Q12HR [facility] Last Admin: 08/09/18 08:33 Dose: 0.1 mg Dextrose (D50w Vial) 50 ml IV.PUSH UNSCH PRN PRN Reason: PER HYPOGLYCEMIA PROTOCOL Diphenhydramine HCl (Benadryl) 25 mg PO UNSCH PRN PRN Reason: SEE LABEL COMMENTS Doxazosin Mesylate (Cardura) 2 mg PO DAILY [facility] Last Admin: 08/09/18 08:34 Dose: 2 mg Enoxaparin Sodium (Lovenox Inj) 30 mg SQ DAILY [facility] Epoetin Low (Epogen Inj) 10,000 unit IV.PUSH UNSCH PRN PRN Reason: SEE LABEL COMMENTS Last Admin: 08/08/18 14:00 Dose: 10,000 unit Ferrous Sulfate (Ferosul) 325 mg PO DAILY [facility] Last Admin: 08/09/18 08:33 Dose: 325 mg Furosemide (Lasix Inj) 40 mg IV.PUSH BID@0900,1800 [facility] Last Admin: 08/09/18 08:34 Dose: 40 mg Gelatin (Gelfoam 12 Mm/7 Mm Topical) 1 foam TOPICAL UNSCH PRN PRN Reason: help stop bleeding from site Last Admin: 08/08/18 14:01 Dose: 1 foam Gentamicin Sulfate (Gentamicin Inj) 20 mg OTHER WITH DIALYSIS PRN PRN Reason: Dwell Gentamycin Lock Glucagon (Glucagon Inj) 1 mg OTHER UNSCH PRN PRN Reason: for Hypoglycemia Protocol Heparin Sodium (Porcine) (Heparin Inj) 8,000 units OTHER WITH DIALYSIS PRN PRN Reason: for machine prime Heparin Sodium (Porcine) (Heparin Inj) 1,000 units OTHER WITH DIALYSIS PRN PRN Reason: Dwell Heparin to Fill Catheter Hydralazine HCl (Apresoline) 100 mg PO TID [facility] Last Admin: 08/09/18 13:31 Dose: 100 mg Albumin Human (Flexbumin 25% Inj) 100 mls @ 60 mls/hr IV.SIG WITH DIALYSIS PRN PRN Reason: hypotension / volume replace Sodium Chloride (Ns Inj) 1,000 mls @ 0 mls/hr OTHER .Q0M PRN PRN Reason: for prime and rinse back Sodium Chloride (Ns Inj) 1,000 mls @ 200 mls/hr OTHER .Q5H PRN PRN Reason: for dialyzer flush PRN Sodium Chloride (Ns Inj) 1,000 mls @ 0 mls/hr IV.CONT .Q0M PRN PRN Reason: hypotension / volume replace Insulin Aspart (Novolog Insulin Correctional Sugar Inj) 0 unit SQ ACHS [facility]; Protocol Last Admin: 08/09/18 13:29 Dose: Not Given Insulin Detemir (Levemir Inj) 10 unit SQ BID [facility] Last Admin: 08/09/18 08:34 Dose: Not Given Isosorbide Mononitrate (Imdur) 60 mg PO DAILY [facility] Last Admin: 08/09/18 08:33 Dose: 60 mg Lactobacillus Acidophilus (Lactinex) 1 tab PO TID [facility] Last Admin: 08/09/18 13:31 Dose: 1 tab Mannitol (Mannitol Inj) 12.5 gm IV.PUSH UNSCH PRN PRN Reason: hypotension / volume replace Nifedipine (Procardia Xl) 30 mg PO BID [facility] Last Admin: 08/09/18 08:33 Dose: 30 mg Nitroglycerin (Nitrostat Sl) 0.4 mg SL Q5M PRN PRN Reason: CHEST PAIN Ondansetron HCl (Zofran Inj) 4 mg IV.PUSH UNSCH PRN PRN Reason: NAUSEA OR VOMITING Senna/Docusate Sodium (Jocelyn-Colace) 1 tab PO BID PRN PRN Reason: CONSTIPATION Sodium Chloride (Ns Flush) 5 ml IV.FLUSH UNSCH PRN PRN Reason: flush each lumen during HD Exam Vital signs: Vital Signs 08/08/18 20:00 08/08/18 22:15 08/08/18 22:16 Temperature 98.2 F Pulse Rate 69 80 Respiratory Rate 20 16 Blood Pressure 114/57 L Pulse Oximetry 93 L 95 08/09/18 00:00 08/09/18 04:00 08/09/18 08:00 Temperature 97.1 F L 97.9 F 97.8 F Pulse Rate 68 66 66 Respiratory Rate 20 20 16 Blood Pressure 114/56 L 112/57 L 110/57 L Pulse Oximetry 91 L 91 L 93 L 08/09/18 08:08 08/09/18 09:00 08/09/18 12:00 Temperature 97.7 F Pulse Rate 69 60 62 Respiratory Rate 16 18 Blood Pressure 115/54 L Pulse Oximetry 93 L 95 08/09/18 12:55 Temperature Pulse Rate 72 Respiratory Rate 18 Blood Pressure Pulse Oximetry Intake & Output 08/08/18 08/09/18 08/09/18 18:59 06:59 18:59 Intake Total 240 / 240 Output Total 5000 / 5000 150 / 150 Balance -5000 / -5000 90 / 90 Weight 68.6 kg Intake: Oral 240 / 240 Output: Urine 150 / 150 Hemodialysis Amount 5000 / 5000 Other: # Voids 1 Weight On Admission 68.6 kg Results - Lab Results 08/09/18 07:51 08/09/18 07:51 Most recent lab results Calcium 8.4 mg/dL (8.5-10.1) L 08/09/18 07:51 Phosphorus 5.0 mg/dL (2.5-4.9) H 08/09/18 07:51 Magnesium 2.2 mg/dL (1.5-2.5) 08/08/18 07:00 Assessment and Plan - Assessment (1) ESRD on dialysis Code(s): N18.6 - End stage renal disease; Z99.2 - Dependence on renal dialysis Status: Acute (2) Pleural effusion Code(s): J90 - Pleural effusion, not elsewhere classified Status: Acute (3) Hypertension Code(s): I10 - Essential (primary) hypertension Status: Acute (4) Anemia Code(s): D64.9 - Anemia, unspecified Status: Acute - Plan Patient seen and examined, agree with above. Has recurrent pleural effusion, Pulmonary to see the patient. HD today, will remove fluid as tolerated.
--- NOTE | 2018-08-08 16:01 | ECG ---
Date Performed: 08/08/2018 Time Performed: 06:36:24 PTAGE: 67 years EKG: Sinus rhythm POSSIBLE ANTERIOR MYOCARDIAL INFARCTION Since previous tracing, no significant change noted BORDERLI NE ECG PREVIOUS TRACING : 07/25/2018 10.36 DOCTOR: Norris Zheng Interpretating Date/Time 08/08/2018 15:59:36
[2018-08-08] MEDS: Lactobacillus Acidophilus/L. Spores Tablet PO SCH ×3 (17:35→18:27)
[2018-08-08] MEDS: Isosorbide Mononitrate 60 MG ER 24HR Tablet (Imdur) PO SCH (17:35)
[2018-08-08] MEDS: Carvedilol 6.25 MG Tablet PO SCH ×2 (17:36→20:37)
[2018-08-08] MEDS: Enoxaparin Inj 30 MG/0.3 ML Syringe SQ ONE ×2 (17:36→17:44)
[2018-08-08] MEDS: Insulin NovoLOG Aspart Correctional Sugar Inj SQ SCH ×3 (17:38→20:38)
--- NOTE | 2018-08-08 18:20 | P.PNFP ---
Subjective Interval history: Patient resting in bed comfortably. Currently with no respiratory distress. Shortness of breath is improved since being admitted. She reports that she has had about 10 hospital admissions for shortness of breath over the past 3 years. Her baseline function includes walking around the house. If she walks much more than that, she becomes short of breath. She uses a walker and wheelchair at home. Has good social support at home with and daughter. Has ESRD, COPD , CHF, significant edema. S/p dialysis today. Significant pleural effusions, presumably from CHF. Results - Labs Result diagrams: 08/08/18 07:00 08/08/18 07:00 Abnormal lab results 08/08/18 08/08/18 08/08/18 Range/Units 07:00 07:00 07:00 RBC 2.96 L (4.00-5.30) mil/mm3 Hgb 9.1 L (11.6-15.3) gm/dL Hct 27.9 L (35.0-46.0) % RDW 17.4 H (11.6-17.2) % Neut % (Auto) 76.9 H (16.0-70.0) % Mcnairy % (Auto) 8.5 H (0.0-8.0) % BUN 46 H (7-18) mg/dL Creatinine 3.00 H (0.50-1.00) mg/dL Estimated GFR 16 L (>89) mL/min POC Glucose (68-110) mg/dl Random Glucose 340 H (74-106) mg/dL Calcium 8.4 L (8.5-10.1) mg/dL Alkaline Phosphatase 225 H (45-117) U/L B-Natriuretic Peptide 3442 H (0-100) pg/mL Albumin 2.2 L (3.4-5.0) g/dL 08/08/18 08/08/18 Range/Units 15:00 16:47 RBC (4.00-5.30) mil/mm3 Hgb (11.6-15.3) gm/dL Hct (35.0-46.0) % RDW (11.6-17.2) % Neut % (Auto) (16.0-70.0) % Mcnairy % (Auto) (0.0-8.0) % BUN (7-18) mg/dL Creatinine (0.50-1.00) mg/dL Estimated GFR (>89) mL/min POC Glucose 173 H 190 H (68-110) mg/dl Random Glucose (74-106) mg/dL Calcium (8.5-10.1) mg/dL Alkaline Phosphatase (45-117) U/L B-Natriuretic Peptide (0-100) pg/mL Albumin (3.4-5.0) g/dL Short CBC 08/08/18 Range/Units 07:00 WBC 9.7 (4.0-11.0) th/mm3 Hgb 9.1 L (11.6-15.3) gm/dL Hct 27.9 L (35.0-46.0) % Plt Count 271 (150-450) th/mm3 BMP 08/08/18 07:00 Sodium 136 Potassium 5.0 Chloride 103 Carbon Dioxide 21.2 BUN 46 H Creatinine 3.00 H Calcium 8.4 L Cardiac Enzymes 08/08/18 08/08/18 Range/Units 10:40 11:09 Total Creatine Kinase 48 32 (26-192) U/L Troponin I 0.04 0.04 (0.02-0.05) ng/mL Liver Function 08/08/18 Range/Units 07:00 Total Bilirubin 0.2 (0.2-1.0) mg/dL AST 35 (15-37) U/L ALT 23 (10-53) U/L Alkaline Phosphatase 225 H (45-117) U/L Albumin 2.2 L (3.4-5.0) g/dL - Imaging Impressions Chest X-Ray 08/08/18 06:57 CONCLUSION: Persistent dense consolidation with associated effusion in the left lung base. Improving aeration right lung base with decreasing airspace disease. Interval removal of tunneled dialysis catheter. Physical Exam Vital signs: Vital Signs 08/08/18 06:30 08/08/18 06:35 08/08/18 08:32 Temperature 97.5 F L Pulse Rate 70 66 Respiratory Rate 16 18 18 Blood Pressure 116/58 L 175/75 H Pulse Oximetry 92 L 96 98 08/08/18 11:15 08/08/18 16:45 Temperature 97.7 F Pulse Rate 75 80 Respiratory Rate 16 16 Blood Pressure 200/81 H 171/76 H Pulse Oximetry 97 95 Intake & Output 0908/08/18 08/08/18 18:59 06:59 18:59 Output Total 5000 / 5000 Balance -5000 / -5000 Weight 68.6 kg Output: Hemodialysis Amount 5000 / 5000 Other: Weight On Admission 68.6 kg Narrative: General: Somewhat frail appearing female in no distress, resting comfortably Skin: Thin skin, no lesions HEENT: Normocephalic, no nasal discharge Neck: Mild JVD CV: RRR, murmurs, rubs or gallops Lungs: Has end expiratory wheezing bilaterally, dull breath sounds in the bases , nasal cannula in place, no distress, mild use of accessory muscles Abdomen: Soft, nontender, nondistended, normal bowel sounds Ext: 2+ pitting edema up to the knees bilaterally Assessment and Plan - Assessment (1) CHF exacerbation Code(s): I50.9 - Heart failure, unspecified Status: Acute (2) ESRD (end stage renal disease) on dialysis Code(s): N18.6 - End stage renal disease; Z99.2 - Dependence on renal dialysis Status: Acute (3) Diabetes Code(s): E11.9 - Type 2 diabetes mellitus without complications Status: Acute (4) Hypertension Code(s): I10 - Essential (primary) hypertension Status: Acute (5) Pleural effusion Code(s): J90 - Pleural effusion, not elsewhere classified Status: Acute - Assessment and Plan 67 YO female w/PMHx CAD, HTN, HLD, CHF, COPD, DM, ESRD on HD M/W/F presents with 1 day of increasing shortness of breath, dry cough and FRANKEL with BNP 3442, Troponin 0.04, afebrile and serum glucose 340. There are no CPs or nausea. DDx is CHF exacerbation, fluid overload, pleural effusion. Pt admitted for observation and diuresis, HD, and ACS r/o to ensure no cardiac ischemia. Say Toro and Krzysztof are being consulted. Impression: -CXR showing pleural effusion left side -BNP 3442 with recent result of 3766 on 07/25, 4432 on 06/27, and in 700s in February and March 2018 -BUN 46/Cr 3.0 -eGFR 16 -Serum glucose 3 -Ca 8.4, w/albumin 2.2--but corrected Ca wnl -Alk Phos 225 -INR wnl -Troponins: 0.04 -Total CK: 32 -EKG w/NSR and borderline ST changes in anteroseptal leads since EKG 07/25 Cardiovascular 1. CHF Exacerbation/fluid overload -Holding home Lasix 40 mg BID PO -Lasix 40 mg IV BID, increase as needed for effectiveness given ESRD -Daily weights -Strict I/Os -Fluid restriction 1.5L daily, Na <2g -Trend EKGs and cardiac enzymes -Telemetry -Continue home Nitrostat 0.4 mg SL Q5M PRN -Isosorbide mononitrate 60 mg PO daily 2. HTN -Hydralazine 100 mg TID -Coreg 6.25 mg BID -Nifedipine 30 mg BID -Clonidine 0.1 mg q6h PRN SBP >180 and/or DBP>100 -Cardura 2 mg daily 3. HLD -Continue home Atorvastatin Pulmonary 1. SOB with Pleural effusion -Follows with Dr Blankenship who has been consulted -Lasix as above -Review records regarding whether there has been diagnostic pleurocentesis 2. COPD -Albuterol nebs q2h PRN -Duonebs q6h Renal 1. ESRD on HD M/W/, follows with Dr Toro -HD today, completed -Avoid nephrotoxic medications -Avoid gadolinium Endocrine 1. Diabetes -Continue home Levemir 10 units BID, will continue this dosing -Continue home Novolog SSI (Low) -Diabetic diet 1800 calories -ASA 81 mg chew daily Heme 1. Anemia -Continue home FeSO4 325 mg daily -CBC with Hgb 9.1 FEN/GI/PPx Fluids: PO fluid restriction 1.5 L Electrolytes: wnl, will follow with BMP/CMP; to be aided by nephrology Nutrition: diabetic diet as above GI: no PPx indicated PPx: anticoagulation with Heparin in HD -Lovenox 40 mg subcu daily Pt home meds: -Continue Lactobacillus 1 tab PO TID Discussed with Dr. Mcqueen and Dr. 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
[2018-08-08] MEDS: Insulin Detemir Inj 1,000 UNIT/10 ML Vial SQ SCH ×2 (18:25→20:38)
[2018-08-09] MEDS: Insulin NovoLOG Aspart Correctional Sugar Inj SQ SCH ×4 (08:32→20:28)
[2018-08-09] MEDS: Carvedilol 6.25 MG Tablet PO SCH ×2 (08:33→20:27)
[2018-08-09] MEDS: Lactobacillus Acidophilus/L. Spores Tablet PO SCH ×3 (08:33→17:57)
[2018-08-09] MEDS: Isosorbide Mononitrate 60 MG ER 24HR Tablet (Imdur) PO SCH (08:33)
[2018-08-09] MEDS: Ferrous Sulfate 325 MG Tablet PO SCH (08:33)
[2018-08-09] MEDS: Insulin Detemir Inj 1,000 UNIT/10 ML Vial SQ SCH ×2 (08:34→20:29)
[2018-08-09 09:16] LABS: Hematocrit 26.9 % (35.0-46.0); Mean Corpuscular HGB Conc 33.5 % (32.0-36.0); Mean Corpuscular Hemoglobin 31.1 pg (27.0-34.0); Mean Corpuscular Volume 92.6 fL (80.0-100.0); Mean Platelet Volume 8.7 fL (7.0-11.0); Platelet Count 237 th/mm3 (150-450); White Blood Count 6.7 th/mm3 (4.0-11.0)
--- NOTE | 2018-08-09 09:30 | P.PNNP ---
Subjective Interval history: Shortness of breath improving. Hemodialysis yesterday tolerated well. <Jessica Clemons - Last Filed: 08/09/18 09:42> Physical Exam Vital signs: Vital Signs 08/08/18 11:15 08/08/18 16:45 08/08/18 20:00 Temperature 97.7 F 98.2 F Pulse Rate 75 80 69 Respiratory Rate 16 16 20 Blood Pressure 200/81 H 171/76 H 114/57 L Pulse Oximetry 97 95 93 L 08/08/18 22:15 08/08/18 22:16 08/09/18 00:00 Temperature 97.1 F L Pulse Rate 80 68 Respiratory Rate 16 20 Blood Pressure 114/56 L Pulse Oximetry 95 91 L 08/09/18 04:00 08/09/18 08:08 Temperature 97.9 F Pulse Rate 66 69 Respiratory Rate 20 16 Blood Pressure 112/57 L Pulse Oximetry 91 L 93 L Intake & Output 08/08/18 08/09/18 08/09/18 18:59 06:59 18:59 Intake Total 240 / 240 Output Total 5000 / 5000 150 / 150 Balance -5000 / -5000 90 / 90 Weight 68.6 kg Intake: Oral 240 / 240 Output: Urine 150 / 150 Hemodialysis Amount 5000 / 5000 Other: # Voids 1 Weight On Admission 68.6 kg Narrative: GENERAL: Alert and oriented. SKIN: Warm and dry. No rashes. HEAD: Atraumatic. Normocephalic. EYES: Pupils equal and round. No scleral icterus. No injection or drainage. CARDIOVASCULAR: Regular rate and rhythm. No murmur appreciated. Intact and equal peripheral pulses. Right AVG RESPIRATORY: No accessory muscle use. Lung sounds diminished. GASTROINTESTINAL: Abdomen soft, non-tender, nondistended. MUSCULOSKELETAL: No obvious deformities. No clubbing. No cyanosis. Moderate dependent edema. <Jessica Clemons - Last Filed: 08/09/18 09:42> Vital signs: Vital Signs 08/08/18 20:00 08/08/18 22:15 08/08/18 22:16 Temperature 98.2 F Pulse Rate 69 80 Respiratory Rate 20 16 Blood Pressure 114/57 L Pulse Oximetry 93 L 95 08/09/18 00:00 08/09/18 04:00 08/09/18 08:00 Temperature 97.1 F L 97.9 F 97.8 F Pulse Rate 68 66 66 Respiratory Rate 20 20 16 Blood Pressure 114/56 L 112/57 L 110/57 L Pulse Oximetry 91 L 91 L 93 L 08/09/18 08:08 08/09/18 09:00 08/09/18 12:00 Temperature 97.7 F Pulse Rate 69 60 62 Respiratory Rate 16 18 Blood Pressure 115/54 L Pulse Oximetry 93 L 95 08/09/18 12:55 Temperature Pulse Rate 72 Respiratory Rate 18 Blood Pressure Pulse Oximetry Intake & Output 08/08/18 08/09/18 08/09/18 18:59 06:59 18:59 Intake Total 240 / 240 Output Total 5000 / 5000 150 / 150 Balance -5000 / -5000 90 / 90 Weight 68.6 kg Intake: Oral 240 / 240 Output: Urine 150 / 150 Hemodialysis Amount 5000 / 5000 Other: # Voids 1 Weight On Admission 68.6 kg <Des Toro - Last Filed: 08/09/18 16:51> Assessment and Plan - Assessment (1) ESRD on dialysis Code(s): N18.6 - End stage renal disease; Z99.2 - Dependence on renal dialysis Status: Acute Plan: End stage renal disease on hemodialysis on Wednesday, Wednesday, and Wednesday. Plan Avoid IVF administration Avoid gadolinium Will monitor labs Hemodialysis yesterday tolerated well with removal of 5 liters of fluid Hemodialysis tomorrow. (2) Pleural effusion Code(s): J90 - Pleural effusion, not elsewhere classified Status: Acute Plan: Chest Xray with effusion in left lung base Pulmonary consulted possible thoracentesis (3) Hypertension Code(s): I10 - Essential (primary) hypertension Status: Acute Plan: Well controlled. On coreg, hydralazine, nifedipine, and clonidine (4) Anemia Code(s): D64.9 - Anemia, unspecified Status: Acute Plan: HGB stable at 9.0, Epogen with hemodialysis <Jessica Clemons - Last Filed: 08/09/18 09:42> - Assessment (1) ESRD on dialysis Code(s): N18.6 - End stage renal disease; Z99.2 - Dependence on renal dialysis Status: Acute Plan: Patient seen and examined, agree with above. CT chest noted. Will need Thoracentesis. D/W the patient about fluid restriction. Will try to adjust dry weight in dialysis. (2) Pleural effusion Code(s): J90 - Pleural effusion, not elsewhere classified Status: Acute (3) Hypertension Code(s): I10 - Essential (primary) hypertension Status: Acute (4) Anemia Code(s): D64.9 - Anemia, unspecified Status: Acute <Des Toro - Last Filed: 08/09/18 16:51>
[2018-08-09 09:51] LABS: Albumin 1.9 g/dL (3.4-5.0); Calcium 8.4 mg/dL (8.5-10.1); Carbon Dioxide 26.5 meq/L (21.0-32.0)
[2018-08-09 09:59] LABS: Potassium 4.9 meq/L (3.5-5.1)
--- NOTE | 2018-08-09 12:36 | P.PNFP ---
Subjective Interval history: Ms Maynard had no acute events overnight. She is resting comfortably in bed and states she is less SOB today. Goal today is to get her OOB to chair and to work with PT and use incentive spirometer. ECHO study performed this morning. Dr Blankenship indicates he will see her, but requested an IR guided thoracentesis be ordered. Denies CP, N/V/D, leg pain. <Niko TORIBIOOh H - 08/09/18 13:44> Results - Labs Result diagrams: 08/10/18 06:19 08/10/18 06:19 <ParamNura L - 08/10/18 22:20> Abnormal lab results 08/10/18 08/10/18 08/10/18 Range/Units 06:19 06:19 06:19 RBC 2.83 L (4.00-5.30) mil/mm3 Hgb 8.8 L (11.6-15.3) gm/dL Hct 26.4 L (35.0-46.0) % Cocke % (Auto) 11.1 H (0.0-8.0) % BUN 40 H (7-18) mg/dL Creatinine 2.85 H (0.50-1.00) mg/dL Estimated GFR 17 L (>89) mL/min POC Glucose (68-110) mg/dl Calcium 8.1 L (8.5-10.1) mg/dL B-Natriuretic Peptide 800 H (0-100) pg/mL Pleural RBC (0-0) /mm3 Pleural Nuc Cells (0-10) /mm3 08/10/18 08/10/18 08/10/18 Range/Units 15:46 17:51 19:43 RBC (4.00-5.30) mil/mm3 Hgb (11.6-15.3) gm/dL Hct (35.0-46.0) % Cocke % (Auto) (0.0-8.0) % BUN (7-18) mg/dL Creatinine (0.50-1.00) mg/dL Estimated GFR (>89) mL/min POC Glucose 332 H 311 H (68-110) mg/dl Calcium (8.5-10.1) mg/dL B-Natriuretic Peptide (0-100) pg/mL Pleural RBC 114 H (0-0) /mm3 Pleural Nuc Cells 153 H (0-10) /mm3 Short CBC 08/10/18 Range/Units 06:19 WBC 5.5 (4.0-11.0) th/mm3 Hgb 8.8 L (11.6-15.3) gm/dL Hct 26.4 L (35.0-46.0) % Plt Count 243 (150-450) th/mm3 BMP 08/10/18 06:19 Sodium 137 Potassium 4.6 Chloride 101 Carbon Dioxide 26.0 BUN 40 H Creatinine 2.85 H Calcium 8.1 L <Young,Nura L - 08/10/18 22:20> Abnormal lab results 08/08/18 08/08/18 08/08/18 Range/Units 15:00 16:47 19:40 RBC (4.00-5.30) mil/mm3 Hgb (11.6-15.3) gm/dL Hct (35.0-46.0) % BUN (7-18) mg/dL Creatinine (0.50-1.00) mg/dL Estimated GFR (>89) mL/min POC Glucose 173 H 190 H 227 H (68-110) mg/dl Random Glucose (74-106) mg/dL Calcium (8.5-10.1) mg/dL Phosphorus (2.5-4.9) mg/dL B-Natriuretic Peptide (0-100) pg/mL Albumin (3.4-5.0) g/dL 08/09/18 08/09/18 08/09/18 Range/Units 07:51 07:51 07:57 RBC 2.90 L (4.00-5.30) mil/mm3 Hgb 9.0 L (11.6-15.3) gm/dL Hct 26.9 L (35.0-46.0) % BUN 32 H (7-18) mg/dL Creatinine 2.37 H (0.50-1.00) mg/dL Estimated GFR 20 L (>89) mL/min POC Glucose (68-110) mg/dl Random Glucose 73 L D (74-106) mg/dL Calcium 8.4 L (8.5-10.1) mg/dL Phosphorus 5.0 H (2.5-4.9) mg/dL B-Natriuretic Peptide 1696 H (0-100) pg/mL Albumin 1.9 L (3.4-5.0) g/dL Short CBC 08/09/18 Range/Units 07:51 WBC 6.7 (4.0-11.0) th/mm3 Hgb 9.0 L (11.6-15.3) gm/dL Hct 26.9 L (35.0-46.0) % Plt Count 237 (150-450) th/mm3 BMP 08/09/18 07:51 Sodium 136 Potassium 4.9 Chloride 100 Carbon Dioxide 26.5 BUN 32 H Creatinine 2.37 H Calcium 8.4 L Cardiac Enzymes 08/08/18 Range/Units 11:09 Total Creatine Kinase 32 (26-192) U/L Troponin I 0.04 (0.02-0.05) ng/mL Liver Function 08/09/18 Range/Units 07:51 Albumin 1.9 L (3.4-5.0) g/dL <Oh Pope III - 08/09/18 12:36> - Imaging Impressions Chest X-Ray 08/10/18 00:00 CONCLUSION: Small left subpulmonic pneumothorax status post left thoracentesis. Bibasilar opacification, which may represent atelectasis given the expiratory view, though there may also be residual loculated and possibly complex pleural fluid in the lateral and inferior left lung base. Thoracentesis Ultrasound 08/10/18 00:00 CONCLUSION: 1. Uncomplicated left thoracentesis with removal of 1 L of clear yellow pleural fluid. <Nura Virgen - 08/10/18 22:18> - EKG Rate & rhythm: NSR <Oh Pope III - 08/09/18 13:44> Interpretation: no change compared to previous EKG <Oh Pope III - 08/09 13:44> - Diagnostic results Chest x-ray: report reviewed, image reviewed (pleural effusion) <Oh Pope III - 08/09/18 13:44> CT scan - chest: pending <Oh Pope III - 08/09/18 13:44> Physical Exam Vital signs: Vital Signs 08/10/18 00:00 08/10/18 04:00 08/10/18 08:00 Temperature 98.2 F 98 F Pulse Rate 68 64 63 Respiratory Rate 18 18 Blood Pressure 125/59 L 109/55 L Pulse Oximetry 96 94 L 08/10/18 08:05 08/10/18 12:00 08/10/18 12:59 Temperature Pulse Rate 91 H 68 70 Respiratory Rate 14 16 Blood Pressure Pulse Oximetry 98 08/10/18 15:50 08/10/18 16:25 Temperature 97.3 F L 98.1 F Pulse Rate 72 75 Respiratory Rate 18 16 Blood Pressure 121/60 93/45 L Pulse Oximetry 99 97 Intake & Output 08/10/18 08/10/18 08/11/18 06:59 18:59 06:59 Intake Total 120 / 120 100 / 100 Output Total 200 / 200 Balance -80 / -80 100 / 100 Intake: IV 100 / 100 Rocephin Inj 1,000 MG In NS Inj 100 / 100 100 ML @ 200 mls/hr IV.SIG Q24H [facility] Rx#:[id number] Oral 120 / 120 Output: Urine 200 / 200 Other: # Voids 1 # Incontinent Voids 1 <Nura Virgen L - 08/10/18 22:20> Vital Signs 08/08/18 16:45 08/08/18 20:00 08/08/18 22:15 Temperature 97.7 F 98.2 F Pulse Rate 80 69 80 Respiratory Rate 16 20 16 Blood Pressure 171/76 H 114/57 L Pulse Oximetry 95 93 L 08/08/18 22:16 08/09/18 00:00 08/09/18 04:00 Temperature 97.1 F L 97.9 F Pulse Rate 68 66 Respiratory Rate 20 20 Blood Pressure 114/56 L 112/57 L Pulse Oximetry 95 91 L 91 L 08/09/18 08:00 08/09/18 08:08 08/09/18 09:00 Temperature 97.8 F Pulse Rate 66 69 60 Respiratory Rate 16 16 Blood Pressure 110/57 L Pulse Oximetry 93 L 93 L Intake & Output 08/08/18 08/09/18 08/09/18 18:59 06:59 18:59 Intake Total 240 / 240 Output Total 5000 / 5000 150 / 150 Balance -5000 / -5000 90 / 90 Weight 68.6 kg Intake: Oral 240 / 240 Output: Urine 150 / 150 Hemodialysis Amount 5000 / 5000 Other: # Voids 1 Weight On Admission 68.6 kg <Oh Pope III H - 08/09/18 12:36> Narrative: GENERAL: Elderly female lying in bed with nasal cannula in place speaking in full sentences in NAD. SKIN: Warm and dry. Significant healed wound over medial left calf from dog bite 1-2 years ago and chronic skin changes over LEs bilaterally on dorsal aspect of feet and between toes. HEAD: Normocephalic. EYES: No scleral icterus. No injection or drainage. NECK: Supple, trachea midline. No lymphadenopathy. CARDIOVASCULAR: Regular rate and rhythm without murmurs, gallops, or rubs. Weak pedal pulses. RESPIRATORY: Crackles heard bilaterally at lung bases with Left worse than right. Interval improvement since yesterday. No accessory muscle use. GASTROINTESTINAL: Abdomen soft, non-tender, nondistended. +BS. MUSCULOSKELETAL: No cyanosis; however, 2+ pitting edema bilaterally to the knee. There is skin breakdown as noted over the sacral area, unstageable. BACK: Nontender without obvious deformity. <Niko TORIBIOHo Little - 08/09/18 13:44> Assessment and Plan - Assessment (1) CHF exacerbation Code(s): I50.9 - Heart failure, unspecified Status: Acute (2) ESRD (end stage renal disease) on dialysis Code(s): N18.6 - End stage renal disease; Z99.2 - Dependence on renal dialysis Status: Acute (3) Diabetes Code(s): E11.9 - Type 2 diabetes mellitus without complications Status: Acute (4) Hypertension Code(s): I10 - Essential (primary) hypertension Status: Acute (5) Pleural effusion Code(s): J90 - Pleural effusion, not elsewhere classified Status: Acute (6) Acute UTI Code(s): N39.0 - Urinary tract infection, site not specified Status: Acute <ParamNura Radha - 08/10/18 22:20> (1) CHF exacerbation Code(s): I50.9 - Heart failure, unspecified Status: Acute (2) ESRD (end stage renal disease) on dialysis Code(s): N18.6 - End stage renal disease; Z99.2 - Dependence on renal dialysis Status: Acute (3) Diabetes Code(s): E11.9 - Type 2 diabetes mellitus without complications Status: Acute (4) Hypertension Code(s): I10 - Essential (primary) hypertension Status: Acute (5) Pleural effusion Code(s): J90 - Pleural effusion, not elsewhere classified Status: Acute <Niko IIIOh - 08/09/18 13:08> - Assessment and Plan 67 YO female w/PMHx CAD, HTN, HLD, CHF, COPD, DM, ESRD on HD M/W/F presents with 1 day of increasing shortness of breath, dry cough and FRANKEL with BNP 3442, Troponin 0.04, afebrile and serum glucose 340. There are no CPs or nausea. DDx is CHF exacerbation, fluid overload, pleural effusion. Pt admitted for observation and diuresis, HD, and ACS r/o to ensure no cardiac ischemia. Say Toro and Krzysztof are being consulted. Impression: -CXR showing pleural effusion left side -BNP 3442-->1696 with recent result of 3766 on 07/25, 4432 on 06/27, and in 700s in February and March 2018 -BUN 32/Cr 2.37, improved -eGFR 16 -Serum glucose 73 -Phos 5.0 -INR wnl -Troponins: 0.04 -Total CK: 32 -EKG w/NSR and borderline ST changes in anteroseptal leads since EKG 07/25 Cardiovascular 1. CHF Exacerbation/fluid overload--interval improvement, lessening SOB -Holding home Lasix 40 mg BID PO -Lasix 40 mg IV BID, increase as needed for effectiveness given ESRD -Daily weights -Strict I/Os -Fluid restriction 1.5L daily, Na <2g -Troponin 0.04/EKG wnl--no change since last study -Telemetry -Continue home Nitrostat 0.4 mg SL Q5M PRN -Isosorbide mononitrate 60 mg PO daily -ECHO showing LV low normal size with mild concentric hypertrophy with EF 50-55% , LA severely dilated, trace MV regurg + annular calcification, AV sclerosis, trace TV regurg, PAP 42 mmHg, trivial pericardial effusion and large left sided effusion -Chest CT pending -Thoracentesis, left side under US guidance 2. HTN -Hydralazine 100 mg TID, hold if SBP<110 and/or DBP <60 -Coreg 6.25 mg BID -Nifedipine 30 mg BID -Clonidine 0.1 mg q6h PRN SBP >180 and/or DBP>100 -Clonidine 0.1 mg q6h YAMILET, hold if SBP<110 and/or DBP <60 -Cardura 2 mg daily 3. HLD -Continue home Atorvastatin Pulmonary 1. SOB with Pleural effusion -Follows with Dr Blankenship who has been consulted -Lasix as above -Review records regarding whether there has been diagnostic pleurocentesis -Per discussion with Dr Blankenship, have ordered US guided left thoracentesis as above 2. COPD -Albuterol nebs q2h PRN -Duonebs q6h Renal 1. ESRD on HD M/W/F, follows with Dr Toro -HD yesterday with 5L off -Avoid nephrotoxic medications -Avoid gadolinium -Avoid IVF Endocrine 1. Diabetes -Continue home Levemir 10 units BID, will continue this dosing -Continue home Novolog SSI (Low) -Diabetic diet 1800 calories -ASA 81 mg chew daily Heme 1. Anemia -- stable -Continue home FeSO4 325 mg daily -CBC stable at Hgb 9.0 FEN/GI/PPx Fluids: PO fluid restriction 1.5 L Electrolytes: wnl, will follow with BMP/CMP; to be aided by nephrology Nutrition: diabetic diet as above GI: no PPx indicated PPx: anticoagulation with Heparin in HD -Lovenox 30 mg subcu daily, renal dosing due to CrCl <30 Pt home meds: -Continue Lactobacillus 1 tab PO TID SDW Dr Viridiana Virgen <Olgadavid CATARINOOh Fitch - 08/09/18 13:44> - Attending Attestation The exam, history, and the medical decision-making described in the above note were completed with the assistance of the resident physician. I reviewed and agree with the findings presented. I attest that I had a [id number] encounter with the patient on the same day, and personally performed and documented my assessment and findings in the medical record. Patient seen with resident team and medical student about 10:00 AM. Resting in bed, reports less shortness of breath, feels better overall. Not in any respiratory distress. Remaining on 2L O2 via nasal cannula. Planning for likely thoracentesis for pleural effusion. Will obtain diagnostic and therapeutically. Otherwise, will continue with diuresis and dialysis as scheduled. <Nura Virgen - 08/10/18 22:18> <Oh Pope III - Last Filed: 08/09/18 13:08> (3) Diabetes Qualifiers: Diabetes mellitus exterminator insulin use: with correction use <Nura Virgen Filed: 08/10/18 22:20> (3) Diabetes Qualifiers: Diabetes mellitus exterminator insulin use: with exterminator use <Oh Pope III - Last Filed: 08/09/18 13:08> (3) Diabetes Qualifiers: Diabetes mellitus correction insulin use: with correction use <Nura Virgen Filed: 08/10/18 22:20> (3) Diabetes Qualifiers: Diabetes mellitus correction insulin use: with exterminator use
[2018-08-09] MEDS ORDERED: Enoxaparin Inj 40 MG/0.4 ML Syringe SQ SCH (12:45)
--- NOTE | 2018-08-09 12:45 | ECHRPT ---
Indication: Heart Failure CONCLUSIONS Normal left ventricular size. Mild concentric left ventricular hypertrophy. The left ventricular systolic function is low normal with an estimated ejection fraction in the rang e of 50- 55%. The left atrial size is severely dilated. Trace mitral valve regurgitation. Mitral annular calcification is present. Aortic valve sclerosis is present. There is trace tricuspid valve regurgitation. The estimated pulmonary arterial pressure is 42 mmHg. A large left sided pleural effusion is noted. There is a trivial pericardial effusion present. BP: / HR: Rhythm: MEASUREMENTS (Male / Female) Normal Values Technical Quality:Good 2D ECHO LV Diastolic Diameter PLAX 5.0 cm 4.2 - 5.9 / 3.9 - 5.3 cm LV Systolic Diameter PLAX 3.4 cm IVS Diastolic Thickness 1.1 cm 0.6 - 1.0 / 0.6 - 0.9 cm LVPW Diastolic Thickness 1.2 cm 0.6 - 1.0 / 0.6 - 0.9 cm LV Relative Wall Thickness 0.5 RV Internal Dim ED PLAX 3.9 cm LVOT Diameter 2.1 cm Aortic Root Diameter 3.2 cm LA Systolic Diameter LX 5.3 cm 3.0 - 4.0 / 2.7 - 3.8 cm M-MODE AV Cusp Separation MM 2.0 cm DOPPLER AV Peak Velocity 182.0 cm/s AV Peak Gradient 13.2 mmHg LVOT Peak Velocity 101.0 cm/s LVOT Peak Gradient 4.1 mmHg AV Area Cont Eq pk 1.9 cm Mitral E Point Velocity 87.8 cm/s Mitral A Point Velocity 93.9 cm/s Mitral E to A Ratio 0.9 LV E' Lateral Velocity 6.7 cm/s Mitral E to LV E' Lateral Ratio 13.1 LV E' Septal Velocity 5.3 cm/s Mitral E to LV E' Septal Ratio 16.6 TR Peak Velocity 286.0 cm/s TR Peak Gradient 32.7 mmHg Right Atrial Pressure 10.0 mmHg Pulmonary Artery Systolic Pressu 42.7 mmHg Right Ventricular Systolic Press 42.7 mmHg PV Peak Velocity 71.3 cm/s PV Peak Gradient 2.0 mmHg FINDINGS LEFT VENTRICLE Normal left ventricular size. Mild concentric left ventricular hypertrophy. The left ventricular systolic function is low normal with an estimated ejection fraction in the rang e of 50- 55%. RIGHT VENTRICLE Normal right ventricular size and systolic function. LEFT ATRIUM The left atrial size is severely dilated. RIGHT ATRIUM The right atrial size is normal. ATRIAL SEPTUM Normal atrial septal thickness without atrial level shunting by limited color doppler interrogation. AORTA The aortic root and proximal ascending aorta are normal in size on limited imaging. MITRAL VALVE Trace mitral valve regurgitation. Mitral annular calcification is present. AORTIC VALVE Trileaflet aortic valve. Aortic valve sclerosis is present. No aortic valve stenosis or regurgitation. TRICUSPID VALVE There is trace tricuspid valve regurgitation. The estimated pulmonary arterial pressure is 42 mmHg. PULMONARY VALVE No pulmonary valve regurgitation or stenosis. VESSELS The inferior vena cava is normal in size. PERICARDIUM A moderate left sided pleural effusion is noted. There is a trivial pericardial effusion present. Mainor Esquivel (Electronically Signed) Final Date:09 August 2018 12:43
--- NOTE | 2018-08-09 16:45 | CT ---
EXAM DATE: 08/09/2018 4:32 PM EDT AGE/SEX: 67 years / Female INDICATIONS: Pleural effusion CLINICAL DATA: This is the patient's initial encounter. Patient reports that signs and symptoms have been present for 1 day and indicates a pain score of 2/10. MEDICAL/SURGICAL HISTORY: Anemia. Cardiovascular disease. Chronic obstructive pulmonary disease. CHF DIABETES HYPERTENSION . AV FISTULA RADIATION DOSE: 9.52 CTDI (mGy) COMPARISON: No prior exams available for comparison. TECHNIQUE: Multiple contiguous axial images were obtained through the chest without contrast. Image s were obtained in suspended respiration using multiple row detector helical technique. Using automa gabby exposure control and adjustment of the mA and/or kV according to patient size, radiation dose was kept as low as reasonably achievable to obtain optimal diagnostic quality images. DICOM format imag e data is available electronically for review and comparison. FINDINGS: There are small to moderate size pleural effusions larger on the left than the right.. The left is lo culated along the chest wall. There is no pericardial effusion. There is compressive atelectasis in both lung bases. Extensive coronary calcifications are evident The portion of the liver and spleen identified are free of focal defects. Extensive vascular calcific ations are noted. CONCLUSION: 1. Bilateral pleural effusions large on the left and moderate on the right. 2. There is a component of loculation to the left suggesting complex effusion.. Electronically signed by: Meek Trimble MD 08/09/2018 4:44 PM EDT
--- NOTE | 2018-08-09 19:08 | MB ---
cc: Aaron Blankenship MD DATE: 08/09/2018 REQUESTING PHYSICIAN: Dr. Virgen REASON FOR CONSULTATION: Evaluate for pleural effusion. HISTORY OF PRESENT ILLNESS: Ms. Maynard is a pleasant 67-year-old female who is known to me from the office. She has a history of pleural effusion, multiple thoracenteses. Also, has history of CHF, COPD, coronary artery disease and stent placement. She is on hemodialysis. The patient came to the hospital with worsening shortness of breath for 1 day. Did not have fever, chills. No night sweats, no chest pain. She had mild bruising. She was worked up in the hospital. She had a chest x-ray, which shows increasing left pleural effusion. She feels that her shortness of breath has increased and wants to have the thoracentesis done. PAST MEDICAL HISTORY: History of COPD, CHF, pleural effusion, coronary artery disease, status post stent placement, end-stage renal disease on dialysis, diabetes mellitus, hypertension. MEDICATIONS: She is currently takin. Hydrocodone 5/325 as needed. 2. IV albumin. 3. Aspirin 81 mg a day. 4. Lipitor 40 mg a day. 5. Coreg 6.25 mg twice a day. 6. Clonidine patch 7. Clonidine 0.1 mg p.r.n. 8. Doxazosin 2 mg a day. 9. Benadryl 25 mg. 10. Lovenox 30 mg a day. 11. Epogen 10,000 units. 12. Lasix 40 mg IV push. 13. Insulin 10 units b.i.d. 14. Isosorbide 60 mg a day. 15. Nifedipine XL 30 mg a day. 16. Nitroglycerin 0.4 mg p.r.n. ALLERGIES: SHE IS ALLERGIC TO PROPOXYPHENE. SOCIAL HISTORY: She denies any history of smoking or alcohol abuse. FAMILY HISTORY: Noncontributory. REVIEW OF SYSTEMS: She walks short distance. She is mostly in wheelchair. Has no fevers. There is no chest pain. No DVT or pulmonary embolism. PHYSICAL EXAMINATION: GENERAL: Elderly female in mild short of breath, blood pressure is 115/46, heart rate 70, respirations 18, temperature 97.8. HEENT: Pupils are equal and reactive. Oral mucosa and nasal mucosa normal. NECK: Supple. JVP not raised. CHEST: has decreased breath sounds on the left side. HEART: S1, S2 normal. ABDOMEN: Benign. EXTREMITIES: One plus pedal edema. IMPRESSION: 1. Increasing left pleural effusion. 2. Dyspnea. 3. Chronic obstructive pulmonary disease. 4. Congestive heart failure. 5. Congestive heart failure, status post stent placement. 6. End-stage renal disease. 7. Diabetes mellitus. PLAN: I discussed with the patient. Monitor her blood sugar, supplemental oxygen. She will need ultrasound-guided thoracentesis. I discussed with her the complications of the procedure including complications from anesthesia, pneumothorax requiring chest tube, bleeding complication, injury to the blood vessel, lungs, nerves, arrhythmia, hypoxia, which she understood and wanted to proceed with. Interventional radiology already consulted for thoracentesis. Further treatment will depend on the course in the hospital. Thank you for this consult. Aaron Blankenship MD ADA/ct/do , 05:22 PM , 05:33 PM MTDD
[2018-08-10 07:12] LABS: Baso % (Auto) 0.6 % (0.0-2.0); Eos # (Auto) 0.2 th/mm3 (0.0-0.4); Eos % (Auto) 3.3 % (0.0-4.0); Hematocrit 26.4 % (35.0-46.0); Hemoglobin 8.8 gm/dL (11.6-15.3); Lymph # (Auto) 1.3 th/mm3 (1.0-4.8); Lymph % (Auto) 23.3 % (9.0-44.0); Mean Corpuscular HGB Conc 33.2 % (32.0-36.0); Mean Corpuscular Volume 93.1 fL (80.0-100.0); Mean Platelet Volume 8.5 fL (7.0-11.0); Mono # (Auto) 0.6 th/mm3 (0.0-0.9); Mono % (Auto) 11.1 % (0.0-8.0); Neut # (Auto) 3.4 th/mm3 (1.8-7.7); Neut % (Auto) 61.7 % (16.0-70.0); Platelet Count 243 th/mm3 (150-450); Red Blood Count 2.83 mil/mm3 (4.00-5.30); Red Cell Distribution Width 17.2 % (11.6-17.2); White Blood Count 5.5 th/mm3 (4.0-11.0)
[2018-08-10 07:38] LABS: Calcium 8.1 mg/dL (8.5-10.1); Potassium 4.6 meq/L (3.5-5.1)
[2018-08-10] MEDS: Carvedilol 6.25 MG Tablet PO SCH ×2 (08:24→21:24)
[2018-08-10] MEDS: Insulin NovoLOG Aspart Correctional Sugar Inj SQ SCH ×4 (08:24→21:25)
[2018-08-10] MEDS: Enoxaparin Inj 30 MG/0.3 ML Syringe SQ SCH (08:25)
[2018-08-10] MEDS: Insulin Detemir Inj 1,000 UNIT/10 ML Vial SQ SCH ×2 (08:25→21:24)
[2018-08-10] MEDS: Isosorbide Mononitrate 60 MG ER 24HR Tablet (Imdur) PO SCH (08:25)
[2018-08-10] MEDS: Ferrous Sulfate 325 MG Tablet PO SCH (08:25)
[2018-08-10] MEDS: Lactobacillus Acidophilus/L. Spores Tablet PO SCH ×3 (08:25→17:19)
--- NOTE | 2018-08-10 10:06 | P.PNNP ---
Addendum entered and electronically signed by NICHOLAS Morgan 08/10/18 10:54: Complaining of dysuria will order UA C+S and order Rocephin. Original Note: Subjective Interval history: Seen during Hemodialysis. Shortness of breath is worse today plan for thoracentesis. Also reporting dysuria. <Jessica Clemons - Last Filed: 08/10/18 09:57> Physical Exam Vital signs: Vital Signs 08/09/18 12:00 08/09/18 12:55 08/09/18 16:00 Temperature 97.7 F 97.8 F Pulse Rate 62 72 69 Respiratory Rate 18 18 18 Blood Pressure 115/54 L 113/46 L Pulse Oximetry 95 95 08/09/18 19:30 08/09/18 20:00 08/10/18 00:00 Temperature 97.7 F 98.2 F Pulse Rate 75 76 68 Respiratory Rate 16 20 18 Blood Pressure 142/59 H 125/59 L Pulse Oximetry 95 96 08/10/18 04:00 08/10/18 08:00 08/10/18 08:05 Temperature 98 F Pulse Rate 64 63 91 H Respiratory Rate 18 14 Blood Pressure 109/55 L Pulse Oximetry 94 L 98 Intake & Output 08/09/18 08/10/18 08/10/18 18:59 06:59 18:59 Intake Total 360 / 360 120 / 120 Output Total 200 / 200 Balance 360 / 360 -80 / -80 Intake: Oral 360 / 360 120 / 120 Output: Urine 200 / 200 Other: # Voids 0 1 # Incontinent Voids 1 Narrative: GENERAL: alert and oriented. SKIN: Warm and dry. HEAD: Normocephalic. EYES: No scleral icterus. No injection or drainage. NECK: Supple, trachea midline. No JVD or lymphadenopathy. CARDIOVASCULAR: Regular rate and rhythm without murmurs, gallops, or rubs. Right ARM AVG RESPIRATORY: Breath sounds decreased bilaterally. No accessory muscle use. GASTROINTESTINAL: Abdomen soft, non-tender, nondistended. MUSCULOSKELETAL: No cyanosis, or edema. BACK: Nontender without obvious deformity. No CVA tenderness. <Jessica Clemons - Last Filed: 08/10/18 09:57> Vital signs: Vital Signs 08/10/18 00:00 08/10/18 04:00 08/10/18 08:00 Temperature 98.2 F 98 F Pulse Rate 68 64 63 Respiratory Rate 18 18 Blood Pressure 125/59 L 109/55 L Pulse Oximetry 96 94 L 08/10/18 08:05 08/10/18 12:00 08/10/18 12:59 Temperature Pulse Rate 91 H 68 70 Respiratory Rate 14 16 Blood Pressure Pulse Oximetry 98 08/10/18 15:50 08/10/18 16:25 Temperature 97.3 F L 98.1 F Pulse Rate 72 75 Respiratory Rate 18 16 Blood Pressure 121/60 93/45 L Pulse Oximetry 99 97 Intake & Output 08/10/18 08/10/18 08/11/18 06:59 18:59 06:59 Intake Total 120 / 120 100 / 100 Output Total 200 / 200 Balance -80 / -80 100 / 100 Intake: IV 100 / 100 Rocephin Inj 1,000 MG In NS Inj 100 / 100 100 ML @ 200 mls/hr IV.SIG Q24H YAMILET Rx#:[id number] Oral 120 / 120 Output: Urine 200 / 200 Other: # Voids 1 # Incontinent Voids 1 <Des Toro - Last Filed: 08/10/18 22:48> Assessment and Plan - Assessment (1) ESRD on dialysis Code(s): N18.6 - End stage renal disease; Z99.2 - Dependence on renal dialysis Status: Acute Plan: End stage renal disease on hemodialysis on Wednesday, Wednesday, and Wednesday. Plan Avoid IVF administration Avoid gadolinium Will monitor labs Seen during hemodialysis today will remove fluid as tolerated, dry weight adjusted (2) Pleural effusion Code(s): J90 - Pleural effusion, not elsewhere classified Status: Acute Plan: Chest Xray with effusion in left lung base Pulmonary consulted Plan for CT guided thoracentesis today. (3) Hypertension Code(s): I10 - Essential (primary) hypertension Status: Acute Plan: On lower side will discontinue clonidine. Continue coreg, hydralazine, and nifedipine. (4) Anemia Code(s): D64.9 - Anemia, unspecified Status: Acute Plan: HGB stable at 8.8, Epogen with hemodialysis <Jessica Clemons - Last Filed: 08/10/18 09:57> - Assessment (1) ESRD on dialysis Code(s): N18.6 - End stage renal disease; Z99.2 - Dependence on renal dialysis Status: Acute Plan: Patient seen and examined, agree with above. Seen during Dialysis, for Thoracentesis today. Told to restrict fluid intake. (2) Pleural effusion Code(s): J90 - Pleural effusion, not elsewhere classified Status: Acute (3) Hypertension Code(s): I10 - Essential (primary) hypertension Status: Acute (4) Anemia Code(s): D64.9 - Anemia, unspecified Status: Acute <Des Toro - Last Filed: 08/10/18 22:48>
--- NOTE | 2018-08-10 15:28 | P.PNPL ---
Subjective Interval history: 67 YOWF with COPD,CHF, Pl effusion breathing better no CP mild sob Physical Exam Vital signs: Vital Signs 08/09/18 16:00 08/09/18 19:30 08/09/18 20:00 Temperature 97.8 F 97.7 F Pulse Rate 69 75 76 Respiratory Rate 18 16 20 Blood Pressure 113/46 L 142/59 H Pulse Oximetry 95 95 08/10/18 00:00 08/10/18 04:00 08/10/18 08:00 Temperature 98.2 F 98 F Pulse Rate 68 64 63 Respiratory Rate 18 18 Blood Pressure 125/59 L 109/55 L Pulse Oximetry 96 94 L 08/10/18 08:05 08/10/18 12:00 08/10/18 12:59 Temperature Pulse Rate 91 H 68 70 Respiratory Rate 14 16 Blood Pressure Pulse Oximetry 98 Intake & Output 08/09/18 08/10/18 08/10/18 18:59 06:59 18:59 Intake Total 360 / 360 120 / 120 100 / 100 Output Total 200 / 200 Balance 360 / 360 -80 / -80 100 / 100 Intake: IV 100 / 100 Rocephin Inj 1,000 MG In NS Inj 100 / 100 100 ML @ 200 mls/hr IV.SIG Q24H YAMILET Rx#:[id number] Oral 360 / 360 120 / 120 Output: Urine 200 / 200 Other: # Voids 0 1 # Incontinent Voids 1 GENERAL: Elderly WF NAD SKIN: Warm and dry. HEAD: Normocephalic. EYES: No scleral icterus. No injection or drainage. NECK: Supple, trachea midline. No JVD or lymphadenopathy. CARDIOVASCULAR: Regular rate and rhythm without murmurs, gallops, or rubs. RESPIRATORY: Breath sounds equal bilaterally. No accessory muscle use. Decreased BS left GASTROINTESTINAL: Abdomen soft, non-tender, nondistended. MUSCULOSKELETAL: No cyanosis, or edema. BACK: Nontender without obvious deformity. No CVA tenderness. Assessment and Plan - Plan IMPRESSION: 1. Increasing left pleural effusion. 2. Dyspnea. 3. Chronic obstructive pulmonary disease. 4. Congestive heart failure. 5. Congestive heart failure, status post stent placement. 6. End-stage renal disease. 7. Diabetes mellitus. PLAN: Supplement 02 Diurese Cont Abx Plans for US Guided TC Dr. Swift covering for me
--- NOTE | 2018-08-10 15:29 | P.PNFP ---
Subjective Interval history: Ms Maynard had no acute events overnight. This morning our interview was delayed as pt went to dialysis and was transported back to her room prior to planned US guided thoracentesis this afternoon. While in HD she was complaining of dysuria and was started on Rocephin for presumptive UTI. Urine was taken in the HD suite and UA+culture and screen ordered by Dr Araiza. Pt has been afebrile with no chills or back pain. She states her SOB is better today after HD but was complaining of increased SOB prior to. She is also complaining of pain in her right thumb and wrist which has been going on for over two weeks ago. She reports getting an X-ray 2 weeks ago that was normal. She states pain is same as in her left hand that was treated/resolved with corticosteroid injection in that wrist. She would like an injection in her right wrist. Denies CP, N/V/D, abdominal and leg pain. Results - Labs Result diagrams: 08/10/18 06:19 08/10/18 06:19 Abnormal lab results 08/09/18 08/09/18 08/10/18 Range/Units 17:02 19:27 06:19 RBC 2.83 L (4.00-5.30) mil/mm3 Hgb 8.8 L (11.6-15.3) gm/dL Hct 26.4 L (35.0-46.0) % [place] % (Auto) 11.1 H (0.0-8.0) % BUN (7-18) mg/dL Creatinine (0.50-1.00) mg/dL Estimated GFR (>89) mL/min POC Glucose 269 H 292 H (68-110) mg/dl Calcium (8.5-10.1) mg/dL B-Natriuretic Peptide (0-100) pg/mL 08/10/18 08/10/18 Range/Units 06:19 06:19 RBC (4.00-5.30) mil/mm3 Hgb (11.6-15.3) gm/dL Hct (35.0-46.0) % [place] % (Auto) (0.0-8.0) % BUN 40 H (7-18) mg/dL Creatinine 2.85 H (0.50-1.00) mg/dL Estimated GFR 17 L (>89) mL/min POC Glucose (68-110) mg/dl Calcium 8.1 L (8.5-10.1) mg/dL B-Natriuretic Peptide 800 H (0-100) pg/mL Short CBC 08/10/18 Range/Units 06:19 WBC 5.5 (4.0-11.0) th/mm3 Hgb 8.8 L (11.6-15.3) gm/dL Hct 26.4 L (35.0-46.0) % Plt Count 243 (150-450) th/mm3 BMP 08/10/18 06:19 Sodium 137 Potassium 4.6 Chloride 101 Carbon Dioxide 26.0 BUN 40 H Creatinine 2.85 H Calcium 8.1 L - Imaging Impressions Chest CT 08/09/18 00:00 CONCLUSION: 1. Bilateral pleural effusions large on the left and moderate on the right. 2. There is a component of loculation to the left suggesting complex effusion.. - Diagnostic results CT scan - chest: report reviewed (moderate right and large left pleural effusion with loculation) Physical Exam Vital signs: Vital Signs 08/09/18 16:00 08/09/18 19:30 08/09/18 20:00 Temperature 97.8 F 97.7 F Pulse Rate 69 75 76 Respiratory Rate 18 16 20 Blood Pressure 113/46 L 142/59 H Pulse Oximetry 95 95 08/10/18 00:00 08/10/18 04:00 08/10/18 08:00 Temperature 98.2 F 98 F Pulse Rate 68 64 63 Respiratory Rate 18 18 Blood Pressure 125/59 L 109/55 L Pulse Oximetry 96 94 L 08/10/18 08:05 08/10/18 12:00 08/10/18 12:59 Temperature Pulse Rate 91 H 68 70 Respiratory Rate 14 16 Blood Pressure Pulse Oximetry 98 Intake & Output 08/09/18 08/10/18 08/10/18 18:59 06:59 18:59 Intake Total 360 / 360 120 / 120 100 / 100 Output Total 200 / 200 Balance 360 / 360 -80 / -80 100 / 100 Intake: IV 100 / 100 Rocephin Inj 1,000 MG In NS Inj 100 / 100 100 ML @ 200 mls/hr IV.SIG Q24H [facility]ILET Rx#:[id number] Oral 360 / 360 120 / 120 Output: Urine 200 / 200 Other: # Voids 0 1 # Incontinent Voids 1 Assessment and Plan - Assessment (1) CHF exacerbation Code(s): I50.9 - Heart failure, unspecified Status: Acute (2) ESRD (end stage renal disease) on dialysis Code(s): N18.6 - End stage renal disease; Z99.2 - Dependence on renal dialysis Status: Acute (3) Diabetes Code(s): E11.9 - Type 2 diabetes mellitus without complications Status: Acute (4) Hypertension Code(s): I10 - Essential (primary) hypertension Status: Acute (5) Pleural effusion Code(s): J90 - Pleural effusion, not elsewhere classified Status: Acute (6) Acute UTI Code(s): N39.0 - Urinary tract infection, site not specified Status: Acute - Assessment and Plan 67 YO female w/PMHx CAD, HTN, HLD, CHF, COPD, DM, ESRD on HD M/W/F presents with 1 day of increasing shortness of breath, dry cough and FRANKEL with BNP 3442, Troponin 0.04, afebrile and serum glucose 340. There are no CPs or nausea. DDx is CHF exacerbation, fluid overload, pleural effusion. Pt admitted for observation and diuresis, HD, and ACS r/o to ensure no cardiac ischemia. Say Toro and Krzysztof are being consulted. Impression: -CXR showing pleural effusion left side -BNP 3442-->1696-->800 with recent result of 3766 on 07/25, 4432 on 06/27, and in 700s in February and March 2018 -BUN 40/Cr 3.0->2.37->2.85 on HD -eGFR 16 -Serum glucose 73 -Phos 5.0 -INR wnl -Troponins: 0.04 -Total CK: 32 -EKG w/NSR and borderline ST changes in anteroseptal leads since EKG 07/25 Cardiovascular 1. CHF Exacerbation/fluid overload--significantly improved, lessening SOB -BNP nearing baseline (500-700) in Feb/April 15 -Holding home Lasix 40 mg BID PO -Lasix 40 mg IV BID, increase as needed for effectiveness given ESRD -Daily weights -Strict I/Os -Fluid restriction 1.5L daily, diet with Na <2g -Troponin 0.04/EKG wnl--no change since last study -Telemetry -Continue home Nitrostat 0.4 mg SL Q5M PRN -Isosorbide mononitrate 60 mg PO daily -ECHO showing LV low normal size with mild concentric hypertrophy with EF 50-55% , LA severely dilated, trace MV regurg + annular calcification, AV sclerosis, trace TV regurg, PAP 42 mmHg, trivial pericardial effusion and large left sided effusion 2. HTN--controlled -Hydralazine 100 mg TID, hold if SBP<110 and/or DBP <60 -Coreg 6.25 mg BID -Nifedipine 30 mg BID -Clonidine 0.1 mg q6h PRN SBP >180 and/or DBP>100 -Clonidine 0.1 mg q6h YAMILET, hold if SBP<110 and/or DBP <60 -Cardura 2 mg daily 3. HLD--stable -Continue home Atorvastatin Pulmonary--acute on chronic 1. SOB with recurrent pleural effusion requiring thoracentesis 5-6x -Follows with Dr Blankenship who has been consulted and has recommended thoracentesis under US guidance -Lasix as above -Chest CT showing moderate right sided and large left sided pleural effusion. Left side with loculations -Diagnostic pleurocentesis 6-8 months ago was transudative -Thoracentesis (diagnostic+therapeutic), left side under US guidance this afternoon, due to large, loculated effusion on left side -Per Dr Blankenship, pt may discharge following thoracentesis 2. COPD--stable -Albuterol nebs q2h PRN -Duonebs q6h Renal 1. ESRD on HD M/W/F, follows with Dr Toro -HD today; electrolytes wnl -Avoid nephrotoxic medications -Avoid gadolinium -Avoid IVF Endocrine 1. Diabetes--poorly controlled, last two days of AM Levemir held due to blood glucose 73 and 97 leading to higher BG later in the day. -Continue home Levemir 10 units BID, will instruct to give basal insulin and call residents if blood glucose <100 -Continue home Novolog SSI (Low) -Diabetic diet 1800 calories -ASA 81 mg chew daily Heme 1. Anemia -- stable -Continue home FeSO4 325 mg daily -CBC stable at Hgb 9.0 Genitourinary--complaint of dysuria in HD suite 08/10 1. UTI -UA with Cx+screen ordered -Rocephin 1g IV q24h MSK -Complaint of right thumb pain with pain extending to distal lateral wrist c/w tenosynovitis -Pt desires right De Quervain's corticosteroid injection -Refer to [facility] Procedures clinic 08/18/18 at 10:40AM as outpt FEN/GI/PPx Fluids: PO fluid restriction 1.5 L Electrolytes: wnl, will follow with BMP/CMP; to be aided by nephrology Nutrition: diabetic diet as above GI: no PPI indicated PPx: anticoagulation with Heparin in HD; holding anticoagulation until 24 hours post-procedure (thoracentesis) per radiology -Discontinued Lovenox 30 mg subcu daily; did not get AM dose on 08/10 Pt home meds: -Continue Lactobacillus 1 tab PO TID Dispo: likely 08/11/18 if pt stable following 2nd dose Pat Verma (3) Diabetes Qualifiers: Diabetes mellitus fdc insulin use: with fdc use
[2018-08-10] MEDS ORDERED: Lidocaine PF 1% Inj 5 ML Vial ONE (16:11)
--- NOTE | 2018-08-10 16:19 | XR ---
EXAM DATE: 08/10/2018 4:06 PM EDT AGE/SEX: 67 years / Female INDICATIONS: Post left thoracentesis. CLINICAL DATA: This is the patient's initial encounter. Patient reports that signs and symptoms have been present for 1 day and indicates a pain score of 2/10. MEDICAL/SURGICAL HISTORY: None. None. COMPARISON: [facility] [place], CHEST EXPIRATION ONLY, 01/13/2018. [facility] [place], CT CHEST W/O CONTRAST, 08/09/2018. . FINDINGS: A single frontal expiratory view of the chest was performed. There is a small subpulmonic pneumothora x on the left status post left thoracentesis. Marked patchy opacities in both lung bases, some of wh ich may represent atelectasis given the expiratory view. However, there are relatively focal dense op acities in the left lateral and inferior lung base, which may represent residual loculated and possib ly complex pleural fluid. Probable small amount of right pleural fluid. Mediastinal structures are in the midline. CONCLUSION: Small left subpulmonic pneumothorax status post left thoracentesis. Bibasilar opacification, which ma y represent atelectasis given the expiratory view, though there may also be residual loculated and po ssibly complex pleural fluid in the lateral and inferior left lung base. Electronically signed by: Arabella Ceballos MD 08/10/2018 4:18 PM EDT
--- NOTE | 2018-08-10 16:33 | US ---
EXAM DATE: 08/10/2018 4:07 PM EDT AGE/SEX: 67 years / Female INDICATIONS: Left pleural effusion. CLINICAL DATA: This is the patient's subsequent encounter. Patient reports that signs and symptoms h ave been present for 2 months and indicates a pain score of 0/10. MEDICAL/SURGICAL HISTORY: . Anemia. Cardiovascular disease. Chronic obstructive pulmonary disea se. CHF Diabetes. HTN. . AV fistula. COMPARISON: [facility] [place], US GUIDED THORACENTESIS LEFT, 01/13/2018. . FLUID: Total volume of 1000 cc of clear, yellow fluid was removed. Fluid was sent to lab for ordered studies. TECHNIQUE: Ultrasound guidance for thoracentesis. Thoracentesis. The risks, benefits, and alternatives to ultrasound guided thoracentesis were explained to the patien t in lay simple terms, including the risk of bleeding and infection. Written and verbal informed con sent was obtained. Appropriate area for left thoracentesis was marked under ultrasound guidance with the patient in the upright position. Overlying skin was prepped and draped in the usual sterile fashion and with local anesthetic, a dermatotomy was made with an 11 blade scalpel. A 6 Serbian thoracentesis catheter was p laced in the pleural space and fluid was removed. Catheter was then removed and a sterile dressing a pplied. There were no immediate complications. The patient tolerated the procedure well and the left the ultrasound suite in stable condition. Chest radiograph is to be obtained. CONCLUSION: 1. Uncomplicated left thoracentesis with removal of 1 L of clear yellow pleural fluid. Electronically signed by: Wally Trimble MD 08/10/2018 4:32 PM EDT
--- NOTE | 2018-08-10 16:35 | P.DCO ---
- Physical Therapy Order: Evaluate and treat - Home Health Nursing Order: Medical education, Signs/symptoms of disease process, CHF education, Oxygen administration education, Medication education-adverse effect, Nursing assessment with vital signs - Certification I have seen patient Brinda Maynard on 08/10/18. My clinical findings support the need for the requested home health care services because: Pt has CHF with recurrent pleural effusions requiring repeated thoracentesis. Pt needs recertification of existing requirement for Home O2 from [employer], Walker, Wheelchair and Shower Chair. Limited mobility due to disease progression, Patient has SOB, Deconditioned with increased weakness, Medication compliance is questionable, Limited ability to care for self, High risk of falls I certify that my clinical findings support that this patient is homebound because: She requires a walker to ambulate and has a supplemental O2 requirement due to CHF and COPD. Pt with limited ambulation due to SOB Hx COPD - exertion dyspnea/weakness, Unsteady gait/balance, Unsafe to leave home unassisted, Poor cardiac reserve
[2018-08-10 17:15] LABS: Total Protein,Pleural Fluid 1.9 gm/dL
[2018-08-10 17:35] LABS: Lymphocytes,Pleural Fluid 57 %; Mesothelial,Pleural Fluid 6 %; Monocytes,Pleural Fluid 11 %; Neutrophils,Pleural Fluid 10 %
[2018-08-10 17:38] LABS: RBC,Pleural Fluid 114 /mm3 (0-0)
[2018-08-10 22:32] LABS: Bacteria,Urine Moderate /hpf; Bilirubin,Urine Negative (Negative); Clarity,Urine Cloudy (Clear); Color,Urine Yellow (Yellw/Straw); Glucose,Urine (UA) 500 or Greater mg/dL (Negative); Hyaline Casts,Urine 8 /lpf (0-3); Leukocyte Esterase,Urine Moderate (Negative); Nitrite,Urine Negative (Negative); Specific Gravity,Urine 1.014 (1.002-1.035); Squamous Epithelial Cell,Urine 12 /hpf (0-5)
[2018-08-11 08:04] LABS: Hemoglobin 9.5 gm/dL (11.6-15.3); Red Blood Count 3.13 mil/mm3 (4.00-5.30); White Blood Count 5.8 th/mm3 (4.0-11.0)
[2018-08-11 08:05] LABS: Baso # (Auto) 0.1 th/mm3 (0.0-0.2); Eos # (Auto) 0.2 th/mm3 (0.0-0.4); Eos % (Auto) 2.9 % (0.0-4.0); Hematocrit 29.6 % (35.0-46.0); Lymph # (Auto) 1.2 th/mm3 (1.0-4.8); Lymph % (Auto) 20.6 % (9.0-44.0); Mean Corpuscular HGB Conc 32.1 % (32.0-36.0); Mean Corpuscular Hemoglobin 30.4 pg (27.0-34.0); Mean Corpuscular Volume 94.6 fL (80.0-100.0); Mean Platelet Volume 8.8 fL (7.0-11.0); Mono # (Auto) 0.7 th/mm3 (0.0-0.9); Mono % (Auto) 11.5 % (0.0-8.0); Neut # (Auto) 3.7 th/mm3 (1.8-7.7); Platelet Count 244 th/mm3 (150-450); Red Cell Distribution Width 16.9 % (11.6-17.2)
[2018-08-11 08:33] LABS: Calcium 8.5 mg/dL (8.5-10.1); Carbon Dioxide 30.5 meq/L (21.0-32.0); Potassium 4.8 meq/L (3.5-5.1)
[2018-08-11 08:34] LABS: Total Protein 5.9 g/dL (6.4-8.2)
[2018-08-11] MEDS: Insulin NovoLOG Aspart Correctional Sugar Inj SQ SCH ×2 (09:29→12:46)
[2018-08-11] MEDS: Isosorbide Mononitrate 60 MG ER 24HR Tablet (Imdur) PO SCH (09:30)
[2018-08-11] MEDS: Carvedilol 6.25 MG Tablet PO SCH (09:30)
[2018-08-11] MEDS: Ferrous Sulfate 325 MG Tablet PO SCH (09:31)
[2018-08-11] MEDS: Lactobacillus Acidophilus/L. Spores Tablet PO SCH ×2 (09:32→12:41)
[2018-08-11] MEDS: Enoxaparin Inj 30 MG/0.3 ML Syringe SQ SCH (09:33)
[2018-08-11] MEDS: Insulin Detemir Inj 1,000 UNIT/10 ML Vial SQ SCH (09:33)
--- NOTE | 2018-08-11 09:48 | P.PNFP ---
Subjective Interval history: Ms Maynard had no acute events overnight. She states she feels much better today after thoracentesis yesterday evening. She denies being SOB, no CP, no N/V /D or leg pain; however, still has the right hand pain as she indicated yesterday. She exclaims: my leg swelling is gone. I have chicken legs now!" She has been advised to restrict sodium intake, elevate legs and use RAVINDRA/ compression hose at home to reduce leg swelling. She will follow up with her PCP in [address] Blankenship in 2 weeks. She will see Dr Schroeder in [facility] on Aug 18 at 1040 AM for her right hand appt. Of course she will also continue M/W/F HD appts. She will be discharged after a walk test and dose of IV Rocephin today. She requested some BP and statin meds to discharge with. She will start PO Macrobid on discharge for UTI for 5 days. <Oh Pope III H - 08/11/18 09:46> Results - Labs Result diagrams: 08/11/18 07:07 08/11/18 07:07 <Nura Virgen L - 08/11/18 18:20> Abnormal lab results 08/10/18 08/10/18 08/11/18 Range/Units 10:10 19:43 07:07 RBC 3.13 L (4.00-5.30) mil/mm3 Hgb 9.5 L (11.6-15.3) gm/dL Hct 29.6 L (35.0-46.0) % [place] % (Auto) 11.5 H (0.0-8.0) % BUN (7-18) mg/dL Creatinine (0.50-1.00) mg/dL Estimated GFR (>89) mL/min POC Glucose 311 H (68-110) mg/dl Total Protein (6.4-8.2) g/dL Urine Clarity Cloudy H (Clear) Urine Ketones Trace H (Negative) mg/dL Urine Occult Blood Small H (Negative) Ur Leukocyte Esterase Moderate H (Negative) Urine RBC 13 H (0-3) /hpf Urine WBC Clumps Rare H (None) Urine Bacteria Moderate H (None) /hpf 08/11/18 08/11/18 08/11/18 Range/Units 07:07 07:44 12:09 RBC (4.00-5.30) mil/mm3 Hgb (11.6-15.3) gm/dL Hct (35.0-46.0) % [place] % (Auto) (0.0-8.0) % BUN 28 H (7-18) mg/dL Creatinine 2.31 H (0.50-1.00) mg/dL Estimated GFR 21 L (>89) mL/min POC Glucose 151 H (68-110) mg/dl Total Protein 5.9 L D (6.4-8.2) g/dL Urine Clarity (Clear) Urine Ketones (Negative) mg/dL Urine Occult Blood (Negative) Ur Leukocyte Esterase (Negative) Urine RBC (0-3) /hpf Urine WBC Clumps (None) Urine Bacteria (None) /hpf Short CBC 08/11/18 Range/Units 07:07 WBC 5.8 (4.0-11.0) th/mm3 Hgb 9.5 L (11.6-15.3) gm/dL Hct 29.6 L (35.0-46.0) % Plt Count 244 (150-450) th/mm3 BMP 08/11/18 07:07 Sodium 137 Potassium 4.8 Chloride 99 Carbon Dioxide 30.5 BUN 28 H Creatinine 2.31 H Calcium 8.5 Urine 08/10/18 Range/Units 10:10 Urine Color Yellow (Yellw/Straw) Urine Clarity Cloudy H (Clear) Urine pH 5.0 (5.0-8.5) Ur Specific [place] 1.014 (1.002-1.035) Urine Protein 500 or greater (Neg-Trace) mg/dL Urine Glucose (UA) 500 or greater (Negative) mg/dL <Nura Virgen L - 08/11/18 18:20> Abnormal lab results 08/10/18 08/10/18 08/10/18 Range/Units 10:10 15:46 17:51 RBC (4.00-5.30) mil/mm3 Hgb (11.6-15.3) gm/dL Hct (35.0-46.0) % [place] % (Auto) (0.0-8.0) % BUN (7-18) mg/dL Creatinine (0.50-1.00) mg/dL Estimated GFR (>89) mL/min POC Glucose 332 H (68-110) mg/dl Total Protein (6.4-8.2) g/dL Urine Clarity Cloudy H (Clear) Urine Ketones Trace H (Negative) mg/dL Urine Occult Blood Small H (Negative) Ur Leukocyte Esterase Moderate H (Negative) Urine RBC 13 H (0-3) /hpf Urine WBC Clumps Rare H (None) Urine Bacteria Moderate H (None) /hpf Pleural RBC 114 H (0-0) /mm3 Pleural Nuc Cells 153 H (0-10) /mm3 08/10/18 08/11/18 08/11/18 Range/Units 19:43 07:07 07:07 RBC 3.13 L (4.00-5.30) mil/mm3 Hgb 9.5 L (11.6-15.3) gm/dL Hct 29.6 L (35.0-46.0) % [place] % (Auto) 11.5 H (0.0-8.0) % BUN 28 H (7-18) mg/dL Creatinine 2.31 H (0.50-1.00) mg/dL Estimated GFR 21 L (>89) mL/min POC Glucose 311 H (68-110) mg/dl Total Protein (6.4-8.2) g/dL Urine Clarity (Clear) Urine Ketones (Negative) mg/dL Urine Occult Blood (Negative) Ur Leukocyte Esterase (Negative) Urine RBC (0-3) /hpf Urine WBC Clumps (None) Urine Bacteria (None) /hpf Pleural RBC (0-0) /mm3 Pleural Nuc Cells (0-10) /mm3 08/11/18 Range/Units 07:44 RBC (4.00-5.30) mil/mm3 Hgb (11.6-15.3) gm/dL Hct (35.0-46.0) % [place] % (Auto) (0.0-8.0) % BUN (7-18) mg/dL Creatinine (0.50-1.00) mg/dL Estimated GFR (>89) mL/min POC Glucose (68-110) mg/dl Total Protein 5.9 L D (6.4-8.2) g/dL Urine Clarity (Clear) Urine Ketones (Negative) mg/dL Urine Occult Blood (Negative) Ur Leukocyte Esterase (Negative) Urine RBC (0-3) /hpf Urine WBC Clumps (None) Urine Bacteria (None) /hpf Pleural RBC (0-0) /mm3 Pleural Nuc Cells (0-10) /mm3 Short CBC 08/11/18 Range/Units 07:07 WBC 5.8 (4.0-11.0) th/mm3 Hgb 9.5 L (11.6-15.3) gm/dL Hct 29.6 L (35.0-46.0) % Plt Count 244 (150-450) th/mm3 BMP 08/11/18 07:07 Sodium 137 Potassium 4.8 Chloride 99 Carbon Dioxide 30.5 BUN 28 H Creatinine 2.31 H Calcium 8.5 Urine 08/10/18 Range/Units 10:10 Urine Color Yellow (Yellw/Straw) Urine Clarity Cloudy H (Clear) Urine pH 5.0 (5.0-8.5) Ur Specific [place] 1.014 (1.002-1.035) Urine Protein 500 or greater (Neg-Trace) mg/dL Urine Glucose (UA) 500 or greater (Negative) mg/dL <Oh Pope III - 08/11/18 09:46> - Imaging Impressions Chest X-Ray 08/10/18 00:00 CONCLUSION: Small left subpulmonic pneumothorax status post left thoracentesis. Bibasilar opacification, which may represent atelectasis given the expiratory view, though there may also be residual loculated and possibly complex pleural fluid in the lateral and inferior left lung base. Thoracentesis Ultrasound 08/10/18 00:00 CONCLUSION: 1. Uncomplicated left thoracentesis with removal of 1 L of clear yellow pleural fluid. <Oh Pope III - 08/11/18 09:46> Physical Exam Vital signs: Vital Signs 08/10/18 20:00 08/11/18 00:00 08/11/18 04:00 Temperature 98.0 F 98.5 F 98.0 F Pulse Rate 77 70 70 Respiratory Rate 18 18 18 Blood Pressure 125/57 L 151/67 H 133/61 Pulse Oximetry 96 96 94 L Pulse Oximetry [Exertion on Room Air] Pulse Oximetry [Resting on Room Air] 08/11/18 07:52 08/11/18 08:00 08/11/18 09:00 Temperature 97.8 F Pulse Rate 67 68 70 Respiratory Rate 12 16 Blood Pressure 128/73 Pulse Oximetry 98 96 Pulse Oximetry [Exertion on Room Air] Pulse Oximetry [Resting on Room Air] 08/11/18 12:00 08/11/18 12:29 08/11/18 13:56 Temperature 98.3 F Pulse Rate 66 66 Respiratory Rate 16 12 Blood Pressure 141/64 H Pulse Oximetry 91 L Pulse Oximetry [Exertion on Room Air] 88 L Pulse Oximetry [Resting on Room Air] 90 L Intake & Output 08/10/18 08/11/18 08/11/18 18:59 06:59 18:59 Intake Total 100 / 100 Output Total 250 / 250 Balance 100 / 100 -250 / -250 Weight 66.8 kg Intake: IV 100 / 100 Rocephin Inj 1,000 MG In NS Inj 100 / 100 100 ML @ 200 mls/hr IV.SIG Q24H YAMILET Rx#:[id number] Output: Urine 250 / 250 Other: # Voids 1 <Nura Virgen L - 08/11/18 18:20> Vital Signs 08/10/18 12:00 08/10/18 12:59 08/10/18 15:50 Temperature 97.3 F L Pulse Rate 68 70 72 Respiratory Rate 16 18 Blood Pressure 121/60 Pulse Oximetry 99 08/10/18 16:25 08/10/18 20:00 08/11/18 00:00 Temperature 98.1 F 98.0 F 98.5 F Pulse Rate 75 77 70 Respiratory Rate 16 18 18 Blood Pressure 93/45 L 125/57 L 151/67 H Pulse Oximetry 97 96 96 08/11/18 04:00 08/11/18 07:52 08/11/18 08:00 Temperature 98.0 F 97.8 F Pulse Rate 70 67 68 Respiratory Rate 18 12 16 Blood Pressure 133/61 128/73 Pulse Oximetry 94 L 98 96 Intake & Output 08/10/18 08/11/18 08/11/18 18:59 06:59 18:59 Intake Total 100 / 100 Output Total 250 / 250 Balance 100 / 100 -250 / -250 Weight 66.8 kg Intake: IV 100 / 100 Rocephin Inj 1,000 MG In NS Inj 100 / 100 100 ML @ 200 mls/hr IV.SIG Q24H YAMILET Rx#:[id number] Output: Urine 250 / 250 Other: # Voids 1 <Oh Pope III - 08/11/18 09:46> Narrative: GENERAL: alert and oriented. Sitting up in bed in NAD. SKIN: Warm and dry. No lesions or rash. HEAD: Normocephalic. EYES: No scleral icterus. No injection or drainage. NECK: Supple, trachea midline. No JVD or lymphadenopathy. CARDIOVASCULAR: Regular rate and rhythm without murmurs, gallops, or rubs. Right ARM AVG RESPIRATORY: Breath sounds decreased bilaterally, but no crackles today. No accessory muscle use. GASTROINTESTINAL: Abdomen soft, non-tender, nondistended. BS+. MUSCULOSKELETAL: No cyanosis, or edema. LE edema is absent; healed RLE wound from dog bite in distant past still evident. BACK: Nontender without obvious deformity. No CVA tenderness. <Oh Pope III - 08/11/18 09:46> Assessment and Plan - Assessment (1) CHF exacerbation Code(s): I50.9 - Heart failure, unspecified Status: Acute (2) ESRD (end stage renal disease) on dialysis Code(s): N18.6 - End stage renal disease; Z99.2 - Dependence on renal dialysis Status: Acute (3) Diabetes Code(s): E11.9 - Type 2 diabetes mellitus without complications Status: Acute (4) Hypertension Code(s): I10 - Essential (primary) hypertension Status: Acute (5) Pleural effusion Code(s): J90 - Pleural effusion, not elsewhere classified Status: Acute (6) Acute UTI Code(s): N39.0 - Urinary tract infection, site not specified Status: Acute <Nura Virgen - 08/11/18 18:20> (1) CHF exacerbation Code(s): I50.9 - Heart failure, unspecified Status: Acute (2) ESRD (end stage renal disease) on dialysis Code(s): N18.6 - End stage renal disease; Z99.2 - Dependence on renal dialysis Status: Acute (3) Diabetes Code(s): E11.9 - Type 2 diabetes mellitus without complications Status: Acute (4) Hypertension Code(s): I10 - Essential (primary) hypertension Status: Acute (5) Pleural effusion Code(s): J90 - Pleural effusion, not elsewhere classified Status: Acute (6) Acute UTI Code(s): N39.0 - Urinary tract infection, site not specified Status: Acute <Niko IIIOh - 08/11/18 09:51> - Assessment and Plan 67 YO female w/PMHx CAD, HTN, HLD, CHF, COPD, DM, ESRD on HD M/W/F presents with 1 day of increasing shortness of breath, dry cough and FRANKEL with BNP 3442, Troponin 0.04, afebrile and serum glucose 340. There are no CPs or nausea. DDx is CHF exacerbation, fluid overload, pleural effusion. Pt admitted for observation and diuresis, HD, and ACS r/o to ensure no cardiac ischemia. Say Toro and Krzysztof are being consulted. Impression: -CXR showing pleural effusion left side -BNP 3442-->1696-->800 with recent result of 3766 on 07/25, 4432 on 06/27, and in 700s in February and March 2018 -BUN 40/Cr 3.0->2.37->2.85 on HD -eGFR 16 -Serum glucose 73 -Phos 5.0 -INR wnl -Troponins: 0.04 -Total CK: 32 -EKG w/NSR and borderline ST changes in anteroseptal leads since EKG 07/25 Cardiovascular 1. CHF Exacerbation/fluid overload--significantly improved, no complaint of SOB today -BNP nearing baseline (500-700) in April 15 -Holding home Lasix 40 mg BID PO -Lasix 40 mg IV BID, increase as needed for effectiveness given ESRD -Daily weights -Strict I/Os -Fluid restriction 1.5L daily, diet with Na <2g -Troponin 0.04/EKG wnl--no change since last study -Telemetry -Continue home Nitrostat 0.4 mg SL Q5M PRN -Isosorbide mononitrate 60 mg PO daily -ECHO showing LV low normal size with mild concentric hypertrophy with EF 50-55% , LA severely dilated, trace MV regurg + annular calcification, AV sclerosis, trace TV regurg, PAP 42 mmHg, trivial pericardial effusion and large left sided effusion 2. HTN--controlled -Hydralazine 100 mg TID, hold if SBP<110 and/or DBP <60 -Coreg 6.25 mg BID -Nifedipine 30 mg BID -Clonidine 0.1 mg q6h PRN SBP >180 and/or DBP>100 -Clonidine 0.1 mg q6h YAMILET, hold if SBP<110 and/or DBP <60 -Cardura 2 mg daily 3. HLD--stable -Continue home Atorvastatin Pulmonary--acute on chronic 1. SOB with recurrent pleural effusion requiring thoracentesis 5-6x -Follows with Dr Blankenship who has been consulted and has recommended thoracentesis under US guidance -Lasix as above -Chest CT showing moderate right sided and large left sided pleural effusion. Left side with loculations -Diagnostic pleurocentesis 6-8 months ago was transudative -Thoracentesis performed 08/10 with 1L yellowish fluid drained; transudative with 0.4 ratio per Light's criteria -Per Dr Blankenship, pt may discharge following thoracentesis 2. COPD--stable -Albuterol nebs q2h PRN -Duonebs q6h Renal 1. ESRD on HD M//, follows with Dr Toro -HD yesterday; electrolytes wnl -Avoid nephrotoxic medications -Avoid gadolinium -Avoid IVF Endocrine 1. Diabetes--poorly controlled due to AM levemir being held due to BG <99 -Continue home Levemir 10 units BID, instructions to give basal insulin and call residents if blood glucose <100 -Continue home Novolog SSI (Low) -Diabetic diet 1800 calories -ASA 81 mg chew daily -Discharge on home insulin regimen Heme 1. Anemia -- stable -Continue home FeSO4 325 mg daily -CBC stable at Hgb 9.0 Genitourinary--complaint of dysuria in HD suite 08/10 1. UTI -UA with LE+/nitrite negative; specimen collected after first dose rocephin; Cx pending -Rocephin 1g IV q24h -Convert to PO Macrobid 100 mg BID x5 days after morning dose Rocephin today MSK -Complaint of right thumb pain with pain extending to distal lateral wrist c/w tenosynovitis -Pt desires right De Quervain's corticosteroid injection -Refer to [facility], Dr Schroeder, 08/18/18 at 10:40AM as outpt FEN/GI/PPx Fluids: PO fluid restriction 1.5 L Electrolytes: wnl, will follow with BMP/CMP; to be aided by nephrology Nutrition: diabetic diet as above GI: no PPI indicated PPx: anticoagulation with Heparin in HD; holding anticoagulation until 24 hours post-procedure (thoracentesis) per radiology -Discontinued Lovenox 30 mg subcu daily; did not get AM dose on 08/10 due to thoracentesis; no dose 08/11 due to discharge Pt home meds: -Continue Lactobacillus 1 tab PO TID Dispo: 08/11/18 following dose of IV Rocephin and walk test SDW Say Virgen and Richar <Oh Poep III - 08/11/18 09:55> - Attending Attestation The exam, history, and the medical decision-making described in the above note were completed with the assistance of the resident physician. I reviewed and agree with the findings presented. I attest that I had a [id number] encounter with the patient on the same day, and personally performed and documented my assessment and findings in the medical record. Patient seen with resident team and medical student this morning. She reports feeling back at her baseline. She reports significant improvement from the thoracentesis. Thoracentesis showing likely transudative pleural fluid. She will be discharged today with close follow up with her PCP as well as Dr. Blankenship , her addiction psychiatrist. We discussed a low sodium diet and adherence to medications as very important in her treatment plan. She has good family support at home who she reports help her out a lot at home. Plan to walk her today to make sure she is functioning safely and not having significant desaturation with exertion. <Nura Virgen - 08/11/18 18:20> <Oh Pope III - Last Filed: 08/11/18 09:51> (3) Diabetes Qualifiers: Diabetes mellitus usp insulin use: with intermodal customer service use <Nura Virgen - Last Filed: 09/13/18 18:20> (3) Diabetes Qualifiers: Diabetes mellitus intermodal customer service insulin use: with intermodal customer service use <Oh Pope III Last Filed: 08/11/18 09:51> (3) Diabetes Qualifiers: Diabetes mellitus usp insulin use: with intermodal customer service use <Nura Virgen Filed: 08/11/18 18:20> (3) Diabetes Qualifiers: Diabetes mellitus intermodal customer service insulin use: with usp use
--- NOTE | 2018-08-11 10:17 | P.DS ---
Date of admission: 08/08/18 09:04 Primary care physician: NICHOLAS Benoit Brief History from admission: Ms Maynard is a 67 YO female w/PMHx CAD, HTN, HLD, CHF, COPD, DM, ESRD on HD present with 1 day of increasing shortness of breath and dry cough that began last night. Patient states she ran out of her nebulizer medication, she does not like Symbicort that has been prescribed in the past, has bad headaches, and describes her baseline O2 requirement as 3 L as needed. In the ED she is requiring 2L to be stable. She is on HD M// and followed by Dr. Toro. She is also followed by Dr. Blankensihp, pulmonology, has had thoracentesis 4-5 times recently. Her accounting machine mechanic told her that if her large pleural effusion did not resolve she might need another thoracentesis. Thoracentesis usually yields 1200-1300ml she reports. She also reports Dr Jackson is her set up operator tool. Her last stress test was 2 yrs ago. She takes Lasix for diuresis; Levemir 10 units BID and Novolog SSI spencer diabetes management. She produces urine. Denies any sick contacts. Lives with her . She denies smoking, alcohol intake, and other drugs. Denies chest pain, nausea, vomiting, diarrhea, constipation, and leg pain. Patient update on day of discharge: Pt sitting up in bed, walking in the halls with his . Denies CP and fatigue. AFVSS and physical exam benign. DS: Diagnosis - Discharge Diagnosis (1) CHF exacerbation Status: Acute (2) ESRD (end stage renal disease) on dialysis Status: Acute (3) Diabetes Status: Acute (4) Hypertension Status: Acute (5) Pleural effusion Status: Acute (6) Acute UTI Status: Acute DS: Medications - Discharge Medications Prescriptions: nitrofurantoin monohyd/m-cryst [Macrobid] 100 mg PO BID 5 Days #10 cap DS: Summary Hospital Course: Ms Maynard is a 67 YO female with w/PMHx CAD, HTN, HLD, CHF, COPD, DM, ESRD on HD who presented with acute SOB, BNP 3442 and large left and moderate right pleural effusions on imaging indicating CHF exacerbation. She was initially diuresed with IV Lasix and went to hemodialysis with 5L taken off on day 1. Troponins and EKG did not indicate acute coronary syndrome. Pt reported that she had 5-6 previous thoracentesis prior to this hospitalization which usually helped resolve her fluid overload. Our records show the last one was in March 2018 timeframe and was transudative on pleural fluid study. Pt follows with Dr Blankenship from pulmonology and he was consulted to follow in her care and requested thoracentesis be ordered under US guidance. Pt improved in SOB daily during hospital stay and following thoracentesis with 1L fluid taken off on is feeling better than she has in some time. Also, during HD on 08/10 pt complained of dysuria and was diagnosed with UTI and started on IV Rocephin. There was no fever or CVA tenderness to suggest pyelonephritis, so pt will be discharging on Macrobid for 5 days. Pleural fluid study from thoracentesis had a ratio of 0.4 suggestive of transudative pleural effusion using Light's criteria. On day of discharge pt was given a walk test and second dose of Rocephin prior to discharge. Patient will follow up with her primary care doctor in 1 week, Dr Blankenship in 2 weeks, and it was suggested she see her set up operator tool soon. Patient advised to restrict sodium intake, elevate legs, weigh herself daily and consider RAVINDRA hose/compression stockings for leg swelling. - Time Spent with Patient Total time spent providing and/or coordinating discharge services: Less than 30 minutes Exam Vital signs: Vital Signs 08/10/18 12:00 08/10/18 12:59 08/10/18 15:50 Temperature 97.3 F L Pulse Rate 68 70 72 Respiratory Rate 16 18 Blood Pressure 121/60 Pulse Oximetry 99 08/10/18 16:25 08/10/18 20:00 08/11/18 00:00 Temperature 98.1 F 98.0 F 98.5 F Pulse Rate 75 77 70 Respiratory Rate 16 18 18 Blood Pressure 93/45 L 125/57 L 151/67 H Pulse Oximetry 97 96 96 08/11/18 04:00 08/11/18 07:52 08/11/18 08:00 Temperature 98.0 F 97.8 F Pulse Rate 70 67 68 Respiratory Rate 18 12 16 Blood Pressure 133/61 128/73 Pulse Oximetry 94 L 98 96 Intake & Output 08/10/18 08/11/18 08/11/18 18:59 06:59 18:59 Intake Total 100 / 100 Output Total 250 / 250 Balance 100 / 100 -250 / -250 Weight 66.8 kg Intake: IV 100 / 100 Rocephin Inj 1,000 MG In NS Inj 100 / 100 100 ML @ 200 mls/hr IV.SIG Q24H YAMILET Rx#:[id number] Output: Urine 250 / 250 Other: # Voids 1 Narrative: GENERAL: alert and oriented. Sitting up in bed in NAD. SKIN: Warm and dry. No lesions or rash. HEAD: Normocephalic. EYES: No scleral icterus. No injection or drainage. NECK: Supple, trachea midline. No JVD or lymphadenopathy. CARDIOVASCULAR: Regular rate and rhythm without murmurs, gallops, or rubs. Right ARM AVG RESPIRATORY: Breath sounds decreased bilaterally, but no crackles today. No accessory muscle use. GASTROINTESTINAL: Abdomen soft, non-tender, nondistended. BS+. MUSCULOSKELETAL: No cyanosis, or edema. LE edema is absent; healed RLE wound from dog bite in distant past still evident. BACK: Nontender without obvious deformity. No CVA tenderness. Results Procedures completed during hospitalization: Left sided thoracentesis (diagnostic and therapeutic) under US guidance, 08/10/18 Labs on day of discharge: Labs from last 24 hours 08/11/18 08/11/18 08/11/18 07:44 07:07 07:07 WBC 5.8 RBC 3.13 L Hgb 9.5 L Hct 29.6 L MCV 94.6 MCH 30.4 MCHC 32.1 RDW 16.9 Plt Count 244 MPV 8.8 Neut % (Auto) 64.0 Lymph % (Auto) 20.6 [place] % (Auto) 11.5 H Eos % (Auto) 2.9 Baso % (Auto) 1.0 Neut # (Auto) 3.7 Lymph # (Auto) 1.2 [place] # (Auto) 0.7 Eos # (Auto) 0.2 Baso # (Auto) 0.1 WBC Differential . Differential Comment Auto diff final Sodium 137 Potassium 4.8 Chloride 99 Carbon Dioxide 30.5 Anion Gap 8 BUN 28 H Creatinine 2.31 H Estimated GFR 21 L POC Glucose Random Glucose 85 Calcium 8.5 Lactate Dehydrogenase 124 Total Protein 5.9 L D Urine Color Urine Clarity Urine pH Ur Specific [place] Urine Protein Urine Glucose (UA) Urine Ketones Urine Occult Blood Urine Nitrate Urine Bilirubin Urine Urobilinogen Ur Leukocyte Esterase Urine RBC Urine WBC Urine WBC Clumps Ur Squamous Epith Cells Urine Bacteria Hyaline Casts Micro UA Comment Ur Microscopic Review Urine Culture Comments Pleural pH Pleural Spec [place] Pleural RBC Pleural Nuc Cells Pleural Neutrophils Pleural Lymphocytes Pleural Monocytes Pleural Histocytes Pleural Mesothelial Pleural Total Protein Pleural Albumin Pleural LDH Pleural Glucose Pleural Amylase 08/10/18 08/10/18 08/10/18 19:43 17:51 15:46 WBC RBC Hgb Hct MCV MCH MCHC RDW Plt Count MPV Neut % (Auto) Lymph % (Auto) [place] % (Auto) Eos % (Auto) Baso % (Auto) Neut # (Auto) Lymph # (Auto) [place] # (Auto) Eos # (Auto) Baso # (Auto) WBC Differential Differential Comment Sodium Potassium Chloride Carbon Dioxide Anion Gap BUN Creatinine Estimated GFR POC Glucose 311 H 332 H Random Glucose Calcium Lactate Dehydrogenase Total Protein Urine Color Urine Clarity Urine pH Ur Specific [place] Urine Protein Urine Glucose (UA) Urine Ketones Urine Occult Blood Urine Nitrate Urine Bilirubin Urine Urobilinogen Ur Leukocyte Esterase Urine RBC Urine WBC Urine WBC Clumps Ur Squamous Epith Cells Urine Bacteria Hyaline Casts Micro UA Comment Ur Microscopic Review Urine Culture Comments Pleural pH Pleural Spec [place] Pleural RBC 114 H Pleural Nuc Cells 153 H Pleural Neutrophils 10 Pleural Lymphocytes 57 Pleural Monocytes 11 Pleural Histocytes 16 Pleural Mesothelial 6 Pleural Total Protein Pleural Albumin Pleural LDH Pleural Glucose Pleural Amylase 08/10/18 08/10/18 08/10/18 15:46 11:10 10:10 WBC RBC Hgb Hct MCV MCH MCHC RDW Plt Count MPV Neut % (Auto) Lymph % (Auto) [place] % (Auto) Eos % (Auto) Baso % (Auto) Neut # (Auto) Lymph # (Auto) [place] # (Auto) Eos # (Auto) Baso # (Auto) WBC Differential Differential Comment Sodium Potassium Chloride Carbon Dioxide Anion Gap BUN Creatinine Estimated GFR POC Glucose 79 Random Glucose Calcium Lactate Dehydrogenase Total Protein Urine Color Yellow Urine Clarity Cloudy H Urine pH 5.0 Ur Specific [place] 1.014 Urine Protein 500 or greater Urine Glucose (UA) 500 or greater Urine Ketones Trace H Urine Occult Blood Small H Urine Nitrate Negative Urine Bilirubin Negative Urine Urobilinogen Less than 2 Ur Leukocyte Esterase Moderate H Urine RBC 13 H Urine WBC Urine WBC Clumps Rare H Ur Squamous Epith Cells 12 Urine Bacteria Moderate H Hyaline Casts 8 Micro UA Comment Culture indicated Ur Microscopic Review Not Reportable Urine Culture Comments Culture indicated Pleural pH 8.0 Pleural Spec [place] 1.016 Pleural RBC Pleural Nuc Cells Pleural Neutrophils Pleural Lymphocytes Pleural Monocytes Pleural Histocytes Pleural Mesothelial Pleural Total Protein 1.9 Pleural Albumin 0.8 Pleural LDH 55 Pleural Glucose 159 Pleural Amylase 42 - Impressions ITS Impressions Chest CT 08/09/18 00:00 CONCLUSION: 1. Bilateral pleural effusions large on the left and moderate on the right. 2. There is a component of loculation to the left suggesting complex effusion.. Chest X-Ray 08/10/18 00:00 CONCLUSION: Small left subpulmonic pneumothorax status post left thoracentesis. Bibasilar opacification, which may represent atelectasis given the expiratory view, though there may also be residual loculated and possibly complex pleural fluid in the lateral and inferior left lung base. Thoracentesis Ultrasound 08/10/18 00:00 CONCLUSION: 1. Uncomplicated left thoracentesis with removal of 1 L of clear yellow pleural fluid. Discharge Plan - Discharge Disposition Patient Disposition: 01 Discharge Home - Discharge Condition Condition: Stable - Discharge Order Discharge Orders: Discharge Order (Routine); Ordered 08/11/18 Ordered By: Oh oPpe III - Discharge Details Anticipated Discharge Date: 08/11/18 Discharge Comment: Can discharge after completing walk test and MD is paged concerning walk test results. Also may discharge after Rocephin IV dose is administered today. - Physicians Team Primary Care Provider: Ilsa Treviño Attending Provider: Nura Virgen Other Providers: Des Toro MD ; aRfa Walker MD ; Aaron Blankenship MD
[2018-08-11 13:57] VITALS: PULSE 66; RESP 12
[2018-08-11 14:16] VITALS: BP 141/64; TEMP 98.3; O2SAT 91
--- NOTE | 2018-08-11 15:32 | P.PNNP ---
Subjective Interval history: Plans for discharge home today. S/p thoracentesis yesterday. <Jessica Clemons - Last Filed: 08/11/18 15:29> Physical Exam Vital signs: Vital Signs 08/10/18 15:50 08/10/18 16:25 08/10/18 20:00 Temperature 97.3 F L 98.1 F 98.0 F Pulse Rate 72 75 77 Respiratory Rate 18 16 18 Blood Pressure 121/60 93/45 L 125/57 L Pulse Oximetry 99 97 96 Pulse Oximetry [Exertion on Room Air] Pulse Oximetry [Resting on Room Air] 08/11/18 00:00 08/11/18 04:00 08/11/18 07:52 Temperature 98.5 F 98.0 F Pulse Rate 70 70 67 Respiratory Rate 18 18 12 Blood Pressure 151/67 H 133/61 Pulse Oximetry 96 94 L 98 Pulse Oximetry [Exertion on Room Air] Pulse Oximetry [Resting on Room Air] 08/11/18 08:00 08/11/18 09:00 08/11/18 12:00 Temperature 97.8 F 98.3 F Pulse Rate 68 70 68 Respiratory Rate 16 16 Blood Pressure 128/73 141/64 H Pulse Oximetry 96 91 L Pulse Oximetry [Exertion on Room Air] Pulse Oximetry [Resting on Room Air] 08/11/18 12:29 08/11/18 13:56 Temperature Pulse Rate 66 Respiratory Rate 12 Blood Pressure Pulse Oximetry Pulse Oximetry [Exertion on Room Air] 88 L Pulse Oximetry [Resting on Room Air] 90 L Intake & Output 08/10/18 08/11/18 08/11/18 18:59 06:59 18:59 Intake Total 100 / 100 Output Total 250 / 250 Balance 100 / 100 -250 / -250 Weight 66.8 kg Intake: IV 100 / 100 Rocephin Inj 1,000 MG In NS Inj 100 / 100 100 ML @ 200 mls/hr IV.SIG Q24H YAMILET Rx#:[id number] Output: Urine 250 / 250 Other: # Voids 1 Narrative: GENERAL: alert and oriented. Sitting up in bed in NAD. SKIN: Warm and dry. No lesions or rash. HEAD: Normocephalic. EYES: No scleral icterus. No injection or drainage. NECK: Supple, trachea midline. No JVD or lymphadenopathy. CARDIOVASCULAR: Regular rate and rhythm without murmurs, gallops, or rubs. Right ARM AVG RESPIRATORY: Breath sounds decreased bilaterally, but no crackles today. No accessory muscle use. GASTROINTESTINAL: Abdomen soft, non-tender, nondistended. BS+. MUSCULOSKELETAL: No cyanosis, or edema. BACK: Nontender without obvious deformity. No CVA tenderness. <Jessica Clemons - Last Filed: 08/11/18 15:29> Assessment and Plan - Assessment (1) ESRD on dialysis Code(s): N18.6 - End stage renal disease; Z99.2 - Dependence on renal dialysis Status: Acute Plan: Plans for discharge home today, hemodialysis planned for tomorrow Discussed fluid restriction and reduced sodium diet. (2) Pleural effusion Code(s): J90 - Pleural effusion, not elsewhere classified Status: Acute Plan: Resolved. S/p thoracentesis yesterday. Shortness of breath improved. (3) Hypertension Code(s): I10 - Essential (primary) hypertension Status: Acute Plan: Well controlled Continue coreg, hydralazine, and nifedipine. (4) Anemia Code(s): D64.9 - Anemia, unspecified Status: Acute Plan: HGB stable <Jessica Clemons - Last Filed: 08/11/18 15:29> - Assessment (1) ESRD on dialysis Code(s): N18.6 - End stage renal disease; Z99.2 - Dependence on renal dialysis Status: Acute Plan: Patient seen and examined, agree with above. Patient is feeling better after Thoracentesis. For discharge, told to restrict fluid intake. HD tomorrow. (2) Pleural effusion Code(s): J90 - Pleural effusion, not elsewhere classified Status: Acute (3) Hypertension Code(s): I10 - Essential (primary) hypertension Status: Acute (4) Anemia Code(s): D64.9 - Anemia, unspecified Status: Acute <Des Toro - Last Filed: 08/12/18 16:23>
== END 2018-08-11 15:25 | disposition home or self-care (01) ==
LOC: NEPE 06:27 → NEDA 06:27 → N04 16:47
PROVIDERS: ADMIT Family Medicine; ATTEND Family Medicine
DX: R09.02 Hypoxemia; Z82.0 Family history of epilepsy and other diseases of the nervous system; Z90.710 Acquired absence of both cervix and uterus; N39.0 Urinary tract infection, site not specified; Z99.2 Dependence on renal dialysis; Z90.49 Acquired absence of other specified parts of digestive tract; Z79.4 Long term (current) use of insulin; E87.5 Hyperkalemia; I25.10 Atherosclerotic heart disease of native coronary artery without angina pectoris; M65.9 Synovitis and tenosynovitis, unspecified; G89.29 Other chronic pain; Z79.899 Other long term (current) drug therapy; J93.9 Pneumothorax, unspecified; J90 Pleural effusion, not elsewhere classified; N18.6 End stage renal disease; F17.210 Nicotine dependence, cigarettes, uncomplicated; D63.1 Anemia in chronic kidney disease; J44.9 Chronic obstructive pulmonary disease, unspecified; E11.22 Type 2 diabetes mellitus with diabetic chronic kidney disease; M54.9 Dorsalgia, unspecified; Z79.51 Long term (current) use of inhaled steroids; Z95.5 Presence of coronary angioplasty implant and graft; I13.2 Hypertensive heart and chronic kidney disease with heart failure and with stage 5 chronic kidney disease, or end stage renal disease; E78.5 Hyperlipidemia, unspecified; I50.9 Heart failure, unspecified; Z79.82 Long term (current) use of aspirin

== ENCOUNTER 2018-08-30 11:13 | Inpatient (IN) ==
--- NOTE | 2018-08-30 11:45 | ED ---
HPI General Chief Complaint: Abdominal Pain Stated Complaint: Medical Time Seen by Provider: 08/30/18 11:18 Source: patient and EMS Mode of arrival: EMS Limitations: altered mental status History of Present Illness HPI narrative: 67-year-old female that presents to the ED for evaluation of altered mental status as well as nausea vomiting and abdominal pain. Patient has significant history of diabetes, high blood pressure, ESRD, history of COPD. Patient apparently has been more lethargic since yesterday. Patient went to dialysis yesterday and had her dialysis with no complaints. Apparently she continued to be more lethargic and she was brought here for evaluation. She was brought here by ambulance. Patient herself appears to answer questions appropriately but does appear to be for the most part lethargic. She states that she is been having abdominal pain she is been feeling nauseous. Per [facility] she was found to be somewhat hypoglycemic. Per report she had a blood sugar in the 50s. She was given D50 by [facility]. This improved the sugars to 150s. He still does not have any improvement of mentation so she was brought here for evaluation. She states that she is had abdominal pain since yesterday. She states that she is been feeling nauseous but has not obviously vomited yet. Denies any diarrhea. No bowel movement issues. She still urinates. She uses Lasix. She finished her entire dialysis today. She follows with Dr. Toro for nephrology. Related Data Home Medications Medication Instructions Recorded Confirmed albuterol sulfate [Ventolin HFA] 2 puff INHALATION Q6H PRN 06/03/18 08/30/18 aspirin 81 mg PO DAILY 06/03/18 08/30/18 budesonide-formoterol [Symbicort] 2 puff INHALATION BID 06/03/18 08/30/18 atorvastatin 80 mg PO HS 08/30/18 08/30/18 gabapentin 100 mg PO TID 08/30/18 08/30/18 insulin detemir U-100 [Levemir 20 unit SUBCUT BID 08/30/18 08/30/18 FlexTouch U-100 Insuln] metolazone 2.5 mg PO DAILY 08/30/18 08/30/18 mupirocin 1 applic TOPICAL BID 08/30/18 08/30/18 prasugrel 10 mg PO DAILY 08/30/18 08/30/18 vit B comp no.1-mtfla-P-biotin 1 tab PO DAILY 08/30/18 08/30/18 [Nephro-[facility]] Previous Rx's Medication Instructions Recorded carvedilol 6.25 mg PO BID #60 tab 08/11/18 doxazosin 2 mg PO DAILY 30 Days #30 tab 08/11/18 furosemide 40 mg PO DAILY 30 Days #30 tab 08/11/18 hydralazine 100 mg PO TID #90 tab 08/11/18 isosorbide mononitrate 60 mg PO DAILY 30 Days #30 tab 08/11/18 nifedipine 30 mg PO BID 30 Days #60 tab 08/11/18 Allergies Allergy/AdvReac Type Severity Reaction Status Date / Time propoxyphene Allergy Intermediate RASH Verified 07/18/18 07:41 Review of Systems ROS: all other systems reviewed are negative PMFSH History History Provided By: Patient and Labeling Strategist / EMT Medical History Medical History CAD (coronary artery disease) (Acute) Diabetes (Acute) End stage kidney disease (Acute) Hemodialysis access, AV graft (Acute) A-V fistula (Acute) Anemia (Acute) CAD (coronary artery disease) (Acute) CHF (congestive heart failure) (Acute) CHF (congestive heart failure) (Acute) COPD (chronic obstructive pulmonary disease) (Acute) COPD (chronic obstructive pulmonary disease) (Acute) Chronic back pain (Acute) Diabetes (Acute) ESRD (end stage renal disease) on dialysis (Acute) HLD (hyperlipidemia) (Acute) Hemodialysis access, AV graft (Acute) Hyperkalemia (Acute) Hypertension (Acute) Hypoxia (Acute) Surgical History Surgical History Stented coronary artery (Acute) H/O laminectomy (Acute) H/O vaginal hysterectomy (Acute) H/O: (Acute) History of laser refractive surgery (Acute) History of tonsillectomy (Acute) Hx of appendectomy (Acute) Hx of heart artery stent (Acute) Family History Family History Other ALS (amyotrophic lateral sclerosis) Multiple sclerosis Social History Social History Substance History: No History of Abuse Second Hand Smoke Exposure: No Smoking Status: Former smoker Tobacco Type: Cigarettes Packs Per Day: 1 (1ppd) Cigarettes Per Day: 20.0 Years Smoked: 35 Pack-Years: 35.00 Smoking End Date: The patient reports that she quit smoking 16 years ago. How Often Do You Have a Drink Containing Alcohol: Never Recent Travel in [facility] within the Last 8 Weeks: No Recent Out of Country Travel within the Last 8 Weeks: No Exam Narrative Exam Narrative: GENERAL: Well groomed SKIN: Focused skin assessment warm/dry. HEAD: Atraumatic. Normocephalic. EYES: Pupils equal and round 4 mms reactive to light and accommodation. No scleral icterus. No injection or drainage. ENT: No nasal bleeding or discharge. Mucous membranes pink and moist. Tongue is midline. No uvula deviation. NECK: Trachea midline. No JVD. CARDIOVASCULAR: Regular rate and rhythm. No murmur appreciated. RESPIRATORY: No accessory muscle use. Clear to auscultation. Breath sounds equal bilaterally. GASTROINTESTINAL: Abdomen soft, patient is tender somewhat in the epigastric and umbilical area., nondistended. Hepatic and splenic margins not palpable. MUSCULOSKELETAL: No obvious deformities. No clubbing. No cyanosis. No edema. Full range of motion of the upper and lower extremities bilaterally. 2+ pulses bilaterally. NEUROLOGICAL: Awake and alert. No obvious cranial nerve deficits. Motor grossly within normal limits. Normal speech. PSYCHIATRIC: Appropriate mood and affect; insight and judgment normal. Course Initial Documented Vital Signs Temperature 92.2 F L 08/30/18 11:34 Pulse Rate 52 L 08/30/18 11:34 Respiratory Rate 18 08/30/18 11:34 Blood Pressure 190/100 H 08/30/18 11:34 Pulse Oximetry 94 L 08/30/18 11:34 Last Documented Vital Signs Temperature 92.8 F L 08/30/18 17:00 Pulse Rate 73 08/30/18 17:00 Respiratory Rate 16 08/30/18 17:00 Blood Pressure 164/75 H 08/30/18 17:00 Pulse Oximetry 99 08/30/18 17:00 Medical Decision Making SORAYA Attestation SORAYA supervised visit: Yes Attestation: I, Dr. Osei, have reviewed the advance practice practitioner's documentation and am in agreement, met with the patient face to face, made the diagnosis, and the medical decision making was done by me. *My assessment and Findings: [-] 67-year-old male presented to emergency room for altered mental status. Patient is septic to UTI, treated. I agree with mid-level evaluation and treatment. [facility] Narrative Medical decision making narrative: 67-year-old female that presents to the ED for evaluation of altered mental status. Patient was properly examined and was found to have signs and symptoms consistent appears to be altered mental status. Unclear etiology at this time. Patient was found to be hypoglycemic per ambulance. Labs and imaging were ordered. patient given zofran. Labs and imaging showed possible bacteriuria. Otherwise pretty unremarkable except for elevated troponin which likely is normal for him. Case discussed with my attending who agrees admission to assistant secretary. patient was started on Zosyn and vancomycin. Patient was not given any fluid because she appears to be fluid overloaded. Imaging did show however an eschar and what appears to be a large pleural effusion on the left as well as a right pleural effusion. At this time because the patient is also hypothermic recommend admission for further evaluation of sepsis and fluid overload. Case discussed with Dr. Dunne who agrees to admission. Patient was admitted to his service. Medical Screen Exam Complete: Yes Emergency Medical Condition: Yes Differential Diagnosis Differential Diagnosis: DKA versus dehydration versus hypoglycemia versus hyperglycemia versus sepsis versus altered mental status Medical Records Medical records reviewed: Yes I reviewed the patient's medical records. Lab Data Lab results reviewed: Yes I reviewed the patient's lab results. Lab results narrative: trop slightly elevated UA shows bacteriuria Result diagrams: 08/30/18 12:00 08/30/18 12:00 Lab Results 08/30/18 08/30/18 08/30/18 Range/Units 11:38 12:00 12:00 WBC 5.4 (4.0-11.0) th/mm3 RBC 3.37 L (4.00-5.30) mil/mm3 Hgb 10.1 L (11.6-15.3) gm/dL Hct 31.6 L (35.0-46.0) % MCV 93.5 (80.0-100.0) fL MCH 30.0 (27.0-34.0) pg MCHC 32.0 (32.0-36.0) % RDW 16.7 (11.6-17.2) % Plt Count 306 (150-450) th/mm3 MPV 8.4 (7.0-11.0) fL Neut % (Auto) 71.6 H (16.0-70.0) % Lymph % (Auto) 19.7 (9.0-44.0) % [place] % (Auto) 6.0 (0.0-8.0) % Eos % (Auto) 1.7 (0.0-4.0) % Baso % (Auto) 1.0 (0.0-2.0) % Neut # (Auto) 3.9 (1.8-7.7) th/mm3 Lymph # (Auto) 1.1 (1.0-4.8) th/mm3 [place] # (Auto) 0.3 (0.0-0.9) th/mm3 Eos # (Auto) 0.1 (0.0-0.4) th/mm3 Baso # (Auto) 0.1 (0.0-0.2) th/mm3 WBC Differential . Differential Comment Auto diff final PT 10.2 (9.8-11.6) sec INR 1.0 Ratio APTT 27.6 (24.3-30.1) sec Puncture Site Patient Temperature VBG pH (7.360-7.400) VBG pCO2 (44-48) mmHG VBG pO2 (35-40) mmHG VBG HCO3 (22-26) mmol/L VBG O2 Saturation (70-76) % VBG O2 Content (9.0-17.0) Vol % VBG Base Excess (-2-2) mmol/L VBG Carboxyhemoglobin (0-4) % VBG Methemoglobin (0-2) % Hemoglobin (12.0-16.0) G/DL Inspired O2 % Critical Value Sodium (136-145) meq/L Potassium (3.5-5.1) meq/L Chloride (98-107) meq/L Carbon Dioxide (21.0-32.0) meq/L Anion Gap (5-15) meq/L BUN (7-18) mg/dL Creatinine (0.50-1.00) mg/dL Estimated GFR (>89) mL/min POC Glucose 82 (68-110) mg/dl Random Glucose (74-106) mg/dL Lactic Acid (0.4-2.0) mmol/L Calcium (8.5-10.1) mg/dL Total Bilirubin (0.2-1.0) mg/dL AST (15-37) U/L ALT (10-53) U/L Alkaline Phosphatase (45-117) U/L Ammonia (11-32) mcmol/L Troponin I (0.02-0.05) ng/mL Total Protein (6.4-8.2) g/dL Albumin (3.4-5.0) g/dL Lipase (73-393) U/L Beta-Hydroxybutyric Acd (0.00-0.39) mmol/L TSH (0.358-3.740) uIU/mL Free T4 (0.76-1.46) ng/dL Free T3 (2.18-3.98) pg/mL Urine Color (Yellw/Straw) Urine Clarity (Clear) Urine pH (5.0-8.5) Ur Specific [place] (1.002-1.035) Urine Protein (Neg-Trace) mg/dL Urine Glucose (UA) (Negative) mg/dL Urine Ketones (Negative) mg/dL Urine Occult Blood (Negative) Urine Nitrate (Negative) Urine Bilirubin (Negative) Urine Urobilinogen (Less than 2) mg/dL Ur Leukocyte Esterase (Negative) Urine RBC (0-3) /hpf Urine WBC (0-5) /hpf Ur Squamous Epith Cells (0-5) /hpf Amorphous Sediment (None) /hpf Urine Bacteria (None) /hpf Hyaline Casts (0-3) /lpf Urine Mucus (Occasional) /lpf Micro UA Comment Ur Microscopic Review Urine Culture Comments Salicylates (2.8-20.0) mg/dL Acetaminophen (10.0-30.0) mcg/mL Serum Alcohol (0-5) mg/dL 08/30/18 08/30/18 08/30/18 Range/Units 12:00 12:01 12:14 WBC (4.0-11.0) th/mm3 RBC (4.00-5.30) mil/mm3 Hgb (11.6-15.3) gm/dL Hct (35.0-46.0) % MCV (80.0-100.0) fL MCH (27.0-34.0) pg MCHC (32.0-36.0) % RDW (11.6-17.2) % Plt Count (150-450) th/mm3 MPV (7.0-11.0) fL Neut % (Auto) (16.0-70.0) % Lymph % (Auto) (9.0-44.0) % [place] % (Auto) (0.0-8.0) % Eos % (Auto) (0.0-4.0) % Baso % (Auto) (0.0-2.0) % Neut # (Auto) (1.8-7.7) th/mm3 Lymph # (Auto) (1.0-4.8) th/mm3 [place] # (Auto) (0.0-0.9) th/mm3 Eos # (Auto) (0.0-0.4) th/mm3 Baso # (Auto) (0.0-0.2) th/mm3 WBC Differential Differential Comment PT (9.8-11.6) sec INR Ratio APTT (24.3-30.1) sec Puncture Site Peripheral line Patient Temperature 98.6 VBG pH 7.33 L (7.360-7.400) VBG pCO2 45 (44-48) mmHG VBG pO2 55 H (35-40) mmHG VBG HCO3 23 (22-26) mmol/L VBG O2 Saturation 82 H (70-76) % VBG O2 Content 10.4 (9.0-17.0) Vol % VBG Base Excess -2.1 L (-2-2) mmol/L VBG Carboxyhemoglobin 1.6 (0-4) % VBG Methemoglobin 0.8 (0-2) % Hemoglobin 8.9 L (12.0-16.0) G/DL Inspired O2 21 % Critical Value No Sodium 135 L (136-145) meq/L Potassium 3.4 L (3.5-5.1) meq/L Chloride 100 (98-107) meq/L Carbon Dioxide 25.4 (21.0-32.0) meq/L Anion Gap 10 (5-15) meq/L BUN 37 H (7-18) mg/dL Creatinine 2.95 H (0.50-1.00) mg/dL Estimated GFR 16 L (>89) mL/min POC Glucose (68-110) mg/dl Random Glucose 83 (74-106) mg/dL Lactic Acid 1.0 (0.4-2.0) mmol/L Calcium 8.9 (8.5-10.1) mg/dL Total Bilirubin 0.1 L (0.2-1.0) mg/dL AST 35 (15-37) U/L ALT 19 (10-53) U/L Alkaline Phosphatase 135 H (45-117) U/L Ammonia (11-32) mcmol/L Troponin I 0.08 H (0.02-0.05) ng/mL Total Protein 6.8 (6.4-8.2) g/dL Albumin 2.1 L (3.4-5.0) g/dL Lipase 42 L (73-393) U/L Beta-Hydroxybutyric Acd 0.07 (0.00-0.39) mmol/L TSH (0.358-3.740) uIU/mL Free T4 (0.76-1.46) ng/dL Free T3 (2.18-3.98) pg/mL Urine Color (Yellw/Straw) Urine Clarity (Clear) Urine pH (5.0-8.5) Ur Specific [place] (1.002-1.035) Urine Protein (Neg-Trace) mg/dL Urine Glucose (UA) (Negative) mg/dL Urine Ketones (Negative) mg/dL Urine Occult Blood (Negative) Urine Nitrate (Negative) Urine Bilirubin (Negative) Urine Urobilinogen (Less than 2) mg/dL Ur Leukocyte Esterase (Negative) Urine RBC (0-3) /hpf Urine WBC (0-5) /hpf Ur Squamous Epith Cells (0-5) /hpf Amorphous Sediment (None) /hpf Urine Bacteria (None) /hpf Hyaline Casts (0-3) /lpf Urine Mucus (Occasional) /lpf Micro UA Comment Ur Microscopic Review Urine Culture Comments Salicylates (2.8-20.0) mg/dL Acetaminophen (10.0-30.0) mcg/mL Serum Alcohol (0-5) mg/dL 08/30/18 08/30/18 08/30/18 Range/Units 13:30 14:46 15:20 WBC (4.0-11.0) th/mm3 RBC (4.00-5.30) mil/mm3 Hgb (11.6-15.3) gm/dL Hct (35.0-46.0) % MCV (80.0-100.0) fL MCH (27.0-34.0) pg MCHC (32.0-36.0) % RDW (11.6-17.2) % Plt Count (150-450) th/mm3 MPV (7.0-11.0) fL Neut % (Auto) (16.0-70.0) % Lymph % (Auto) (9.0-44.0) % [place] % (Auto) (0.0-8.0) % Eos % (Auto) (0.0-4.0) % Baso % (Auto) (0.0-2.0) % Neut # (Auto) (1.8-7.7) th/mm3 Lymph # (Auto) (1.0-4.8) th/mm3 [place] # (Auto) (0.0-0.9) th/mm3 Eos # (Auto) (0.0-0.4) th/mm3 Baso # (Auto) (0.0-0.2) th/mm3 WBC Differential Differential Comment PT (9.8-11.6) sec INR Ratio APTT (24.3-30.1) sec Puncture Site Patient Temperature VBG pH (7.360-7.400) VBG pCO2 (44-48) mmHG VBG pO2 (35-40) mmHG VBG HCO3 (22-26) mmol/L VBG O2 Saturation (70-76) % VBG O2 Content (9.0-17.0) Vol % VBG Base Excess (-2-2) mmol/L VBG Carboxyhemoglobin (0-4) % VBG Methemoglobin (0-2) % Hemoglobin (12.0-16.0) G/DL Inspired O2 % Critical Value Sodium (136-145) meq/L Potassium (3.5-5.1) meq/L Chloride (98-107) meq/L Carbon Dioxide (21.0-32.0) meq/L Anion Gap (5-15) meq/L BUN (7-18) mg/dL Creatinine (0.50-1.00) mg/dL Estimated GFR (>89) mL/min POC Glucose 53 L (68-110) mg/dl Random Glucose (74-106) mg/dL Lactic Acid (0.4-2.0) mmol/L Calcium (8.5-10.1) mg/dL Total Bilirubin (0.2-1.0) mg/dL AST (15-37) U/L ALT (10-53) U/L Alkaline Phosphatase (45-117) U/L Ammonia (11-32) mcmol/L Troponin I 0.08 H (0.02-0.05) ng/mL Total Protein (6.4-8.2) g/dL Albumin (3.4-5.0) g/dL Lipase (73-393) U/L Beta-Hydroxybutyric Acd (0.00-0.39) mmol/L TSH (0.358-3.740) uIU/mL Free T4 (0.76-1.46) ng/dL Free T3 (2.18-3.98) pg/mL Urine Color Yellow (Yellw/Straw) Urine Clarity Cloudy H (Clear) Urine pH 5.0 (5.0-8.5) Ur Specific [place] 1.013 (1.002-1.035) Urine Protein 500 or greater (Neg-Trace) mg/dL Urine Glucose (UA) 500 or greater (Negative) mg/dL Urine Ketones Negative (Negative) mg/dL Urine Occult Blood Negative (Negative) Urine Nitrate Negative (Negative) Urine Bilirubin Negative (Negative) Urine Urobilinogen Less than 2 (Less than 2) mg/dL Ur Leukocyte Esterase Negative (Negative) Urine RBC 6 H (0-3) /hpf Urine WBC 5 (0-5) /hpf Ur Squamous Epith Cells <1 (0-5) /hpf Amorphous Sediment Moderate H (None) /hpf Urine Bacteria Rare H (None) /hpf Hyaline Casts 1 (0-3) /lpf Urine Mucus Few H (Occasional) /lpf Micro UA Comment Culture not ind Ur Microscopic Review Not Reportable Urine Culture Comments Culture not ind Salicylates (2.8-20.0) mg/dL Acetaminophen (10.0-30.0) mcg/mL Serum Alcohol (0-5) mg/dL 08/30/18 08/30/18 08/30/18 Range/Units 15:20 15:20 15:20 WBC (4.0-11.0) th/mm3 RBC (4.00-5.30) mil/mm3 Hgb (11.6-15.3) gm/dL Hct (35.0-46.0) % MCV (80.0-100.0) fL MCH (27.0-34.0) pg MCHC (32.0-36.0) % RDW (11.6-17.2) % Plt Count (150-450) th/mm3 MPV (7.0-11.0) fL Neut % (Auto) (16.0-70.0) % Lymph % (Auto) (9.0-44.0) % [place] % (Auto) (0.0-8.0) % Eos % (Auto) (0.0-4.0) % Baso % (Auto) (0.0-2.0) % Neut # (Auto) (1.8-7.7) th/mm3 Lymph # (Auto) (1.0-4.8) th/mm3 [place] # (Auto) (0.0-0.9) th/mm3 Eos # (Auto) (0.0-0.4) th/mm3 Baso # (Auto) (0.0-0.2) th/mm3 WBC Differential Differential Comment PT (9.8-11.6) sec INR Ratio APTT (24.3-30.1) sec Puncture Site Patient Temperature VBG pH (7.360-7.400) VBG pCO2 (44-48) mmHG VBG pO2 (35-40) mmHG VBG HCO3 (22-26) mmol/L VBG O2 Saturation (70-76) % VBG O2 Content (9.0-17.0) Vol % VBG Base Excess (-2-2) mmol/L VBG Carboxyhemoglobin (0-4) % VBG Methemoglobin (0-2) % Hemoglobin (12.0-16.0) G/DL Inspired O2 % Critical Value Sodium (136-145) meq/L Potassium (3.5-5.1) meq/L Chloride (98-107) meq/L Carbon Dioxide (21.0-32.0) meq/L Anion Gap (5-15) meq/L BUN (7-18) mg/dL Creatinine (0.50-1.00) mg/dL Estimated GFR (>89) mL/min POC Glucose (68-110) mg/dl Random Glucose (74-106) mg/dL Lactic Acid (0.4-2.0) mmol/L Calcium (8.5-10.1) mg/dL Total Bilirubin (0.2-1.0) mg/dL AST (15-37) U/L ALT (10-53) U/L Alkaline Phosphatase (45-117) U/L Ammonia 24 (11-32) mcmol/L Troponin I (0.02-0.05) ng/mL Total Protein (6.4-8.2) g/dL Albumin (3.4-5.0) g/dL Lipase (73-393) U/L Beta-Hydroxybutyric Acd (0.00-0.39) mmol/L TSH (0.358-3.740) uIU/mL Free T4 (0.76-1.46) ng/dL Free T3 (2.18-3.98) pg/mL Urine Color (Yellw/Straw) Urine Clarity (Clear) Urine pH (5.0-8.5) Ur Specific [place] (1.002-1.035) Urine Protein (Neg-Trace) mg/dL Urine Glucose (UA) (Negative) mg/dL Urine Ketones (Negative) mg/dL Urine Occult Blood (Negative) Urine Nitrate (Negative) Urine Bilirubin (Negative) Urine Urobilinogen (Less than 2) mg/dL Ur Leukocyte Esterase (Negative) Urine RBC (0-3) /hpf Urine WBC (0-5) /hpf Ur Squamous Epith Cells (0-5) /hpf Amorphous Sediment (None) /hpf Urine Bacteria (None) /hpf Hyaline Casts (0-3) /lpf Urine Mucus (Occasional) /lpf Micro UA Comment Ur Microscopic Review Urine Culture Comments Salicylates Less than 1.7 L (2.8-20.0) mg/dL Acetaminophen Less than 2.0 L (10.0-30.0) mcg/mL Serum Alcohol Less than 3 (0-5) mg/dL 08/30/18 08/30/18 08/30/18 Range/Units 15:20 16:17 16:42 WBC (4.0-11.0) th/mm3 RBC (4.00-5.30) mil/mm3 Hgb (11.6-15.3) gm/dL Hct (35.0-46.0) % MCV (80.0-100.0) fL MCH (27.0-34.0) pg MCHC (32.0-36.0) % RDW (11.6-17.2) % Plt Count (150-450) th/mm3 MPV (7.0-11.0) fL Neut % (Auto) (16.0-70.0) % Lymph % (Auto) (9.0-44.0) % [place] % (Auto) (0.0-8.0) % Eos % (Auto) (0.0-4.0) % Baso % (Auto) (0.0-2.0) % Neut # (Auto) (1.8-7.7) th/mm3 Lymph # (Auto) (1.0-4.8) th/mm3 [place] # (Auto) (0.0-0.9) th/mm3 Eos # (Auto) (0.0-0.4) th/mm3 Baso # (Auto) (0.0-0.2) th/mm3 WBC Differential Differential Comment PT (9.8-11.6) sec INR Ratio APTT (24.3-30.1) sec Puncture Site Patient Temperature VBG pH (7.360-7.400) VBG pCO2 (44-48) mmHG VBG pO2 (35-40) mmHG VBG HCO3 (22-26) mmol/L VBG O2 Saturation (70-76) % VBG O2 Content (9.0-17.0) Vol % VBG Base Excess (-2-2) mmol/L VBG Carboxyhemoglobin (0-4) % VBG Methemoglobin (0-2) % Hemoglobin (12.0-16.0) G/DL Inspired O2 % Critical Value Sodium (136-145) meq/L Potassium (3.5-5.1) meq/L Chloride (98-107) meq/L Carbon Dioxide (21.0-32.0) meq/L Anion Gap (5-15) meq/L BUN (7-18) mg/dL Creatinine (0.50-1.00) mg/dL Estimated GFR (>89) mL/min POC Glucose 61 L 100 (68-110) mg/dl Random Glucose (74-106) mg/dL Lactic Acid (0.4-2.0) mmol/L Calcium (8.5-10.1) mg/dL Total Bilirubin (0.2-1.0) mg/dL AST (15-37) U/L ALT (10-53) U/L Alkaline Phosphatase (45-117) U/L Ammonia (11-32) mcmol/L Troponin I (0.02-0.05) ng/mL Total Protein (6.4-8.2) g/dL Albumin (3.4-5.0) g/dL Lipase (73-393) U/L Beta-Hydroxybutyric Acd (0.00-0.39) mmol/L TSH 1.470 (0.358-3.740) uIU/mL Free T4 0.91 (0.76-1.46) ng/dL Free T3 0.95 L (2.18-3.98) pg/mL Urine Color (Yellw/Straw) Urine Clarity (Clear) Urine pH (5.0-8.5) Ur Specific [place] (1.002-1.035) Urine Protein (Neg-Trace) mg/dL Urine Glucose (UA) (Negative) mg/dL Urine Ketones (Negative) mg/dL Urine Occult Blood (Negative) Urine Nitrate (Negative) Urine Bilirubin (Negative) Urine Urobilinogen (Less than 2) mg/dL Ur Leukocyte Esterase (Negative) Urine RBC (0-3) /hpf Urine WBC (0-5) /hpf Ur Squamous Epith Cells (0-5) /hpf Amorphous Sediment (None) /hpf Urine Bacteria (None) /hpf Hyaline Casts (0-3) /lpf Urine Mucus (Occasional) /lpf Micro UA Comment Ur Microscopic Review Urine Culture Comments Salicylates (2.8-20.0) mg/dL Acetaminophen (10.0-30.0) mcg/mL Serum Alcohol (0-5) mg/dL Imaging Data Attestation: I personally reviewed and interpreted this imaging study as follows : Radiologist's impression: Abdomen/Pelvis CT 08/30/18 11:21 CONCLUSION: 1. Severe anasarca. 2. Moderate-sized bilateral pleural effusions with adjacent alveolar consolidations consistent with compressive atelectasis or pneumonia. 3. Fecal debris within the rectum raising the possibility of fecal impaction. 4. Stable partially calcified left adrenal mass. 5. Hepatomegaly. 6. Minimal ascites. Chest X-Ray 08/30/18 11:21 CONCLUSION: 1. Apparent interval increase in left effusion. 2. Bilateral pulmonary opacities remain which may indicate pulmonary edema. 3. No pneumothorax identified. 4. Rotated exam. Head CT 08/30/18 11:21 CONCLUSION: 1. Mild periventricular and subcortical white matter small vessel ischemic changes bilaterally. 2. Cerebral atrophy. 3. No acute infarct, acute hemorrhage, midline shift or extra-axial bleed. . Chest X-Ray 08/30/18 18:52 CONCLUSION: Decreased left pleural effusion after pleural drainage catheter placement. No pneumothorax. There is patchy and somewhat nodular left base consolidation. ECG Data Attestation: I personally reviewed and interpreted this ECG as follows: Interpretation: EKG showed sinus bradycardia with a ventricular of 52 bpm. No sign of ST elevation or acute ischemia read by me and attending. PA interval of 128 ms. Discharge Plan Discharge Disposition Patient Disposition: 30 Still Patient Discharge Details Diagnosis: Severe sepsis, Pleural effusion, ESRD (end stage renal disease) Physicians Team ED Provider: Emil Osei ED Midlevel Provider: Earl Rivas Primary Care Provider: UNKNOWN, Attending Provider: Trevor Dunne Other Providers: [place] Status ED Status: Left Department Discharge Information Discharge Date/Time: 08/30/18 17:07
[2018-08-30] MEDS ORDERED: Vancomycin Inj 1 GM/200 ML PIGGYBACK IV.SIG ONE (12:09)
[2018-08-30] MEDS ORDERED: Piperacil/Tazo 3.375 GM Premix 50 ML IV.SIG ONE (12:09)
[2018-08-30 12:15] LABS: Baso # (Auto) 0.1 th/mm3 (0.0-0.2); Eos # (Auto) 0.1 th/mm3 (0.0-0.4); Eos % (Auto) 1.7 % (0.0-4.0); Hematocrit 31.6 % (35.0-46.0); Hemoglobin 10.1 gm/dL (11.6-15.3); Lymph # (Auto) 1.1 th/mm3 (1.0-4.8); Lymph % (Auto) 19.7 % (9.0-44.0); Mean Corpuscular Volume 93.5 fL (80.0-100.0); Mean Platelet Volume 8.4 fL (7.0-11.0); Mono # (Auto) 0.3 th/mm3 (0.0-0.9); Neut # (Auto) 3.9 th/mm3 (1.8-7.7); Neut % (Auto) 71.6 % (16.0-70.0); Platelet Count 306 th/mm3 (150-450); Red Blood Count 3.37 mil/mm3 (4.00-5.30); Red Cell Distribution Width 16.7 % (11.6-17.2); White Blood Count 5.4 th/mm3 (4.0-11.0)
[2018-08-30 12:23] LABS: VBG Base Excess -2.1 mmol/L (-2-2); VBG Blood Gas Oxygen Content 10.4 Vol % (9.0-17.0); VBG PCO2 45 mmHG (44-48); VBG PH 7.33 (7.360-7.400); VBG PO2 55 mmHG (35-40)
[2018-08-30 12:29] LABS: Activated Partial Thrombo Time 27.6 sec (24.3-30.1); Prothrombin Time 10.2 sec (9.8-11.6)
[2018-08-30] MEDS ORDERED: Vancomycin Inj 1,000 MG in Sodium Chlor 0.9% Inj 250 ML IV.SIG ONE (12:30)
[2018-08-30 12:37] LABS: Albumin 2.1 g/dL (3.4-5.0); Anion Gap 10 meq/L (5-15); Aspartate Aminotransferase 35 U/L (15-37); Blood Urea Nitrogen 37 mg/dL (7-18); Calcium 8.9 mg/dL (8.5-10.1); Carbon Dioxide 25.4 meq/L (21.0-32.0); Chloride 100 meq/L (98-107); Glomerular Filtration Rate 16 mL/min (>89); Glucose,Random 83 mg/dL (74-106); Lipase 42 U/L (73-393); Potassium 3.4 meq/L (3.5-5.1); Sodium 135 meq/L (136-145)
[2018-08-30 12:38] LABS: Alanine Aminotransferase 19 U/L (10-53)
[2018-08-30 12:42] LABS: Alkaline Phosphatase 135 U/L (45-117); Beta Hydroxybutyric Acid 0.07 mmol/L (0.00-0.39); Total Protein 6.8 g/dL (6.4-8.2); Troponin I 0.08 ng/mL (0.02-0.05)
--- NOTE | 2018-08-30 12:45 | XR ---
EXAM DATE: 08/30/2018 11:21 AM EDT AGE/SEX: 67 years / Female INDICATIONS: Cough. CLINICAL DATA: This is the patient's initial encounter. Patient reports that signs and symptoms have been present for 1 day and indicates a pain score of Nonresponsive. MEDICAL/SURGICAL HISTORY: Anemia. Cardiovascular disease. Chronic obstructive pulmonary disea se. Hypertension. None. [place] [facility] [place], 08[place]. . FINDINGS: A single AP semierect view of the chest was obtained and demonstrates a moderate size left effusion w hich appears increased from the prior study. The patient is mildly rotated. The heart size remains pr ominent. Perihilar and bibasilar opacities remain. The bony thorax is intact in appearance. No defini te pneumothorax is identified on the current study. CONCLUSION: 1. Apparent interval increase in left effusion. 2. Bilateral pulmonary opacities remain which may indicate pulmonary edema. 3. No pneumothorax identified. 4. Rotated exam. Electronically signed by: Nura Niño MD 08/30/2018 12:44 PM EDT
[2018-08-30] MEDS ORDERED: Sodium Chlor 0.9% Inj 500 ML IV.SIG SCH (13:00)
--- NOTE | 2018-08-30 13:06 | CT ---
EXAM DATE: 08/30/2018 11:52 AM EDT AGE/SEX: 67 years / Female INDICATIONS: Abdominal pain, nausea, vomiting, low blood sugar. CLINICAL DATA: This is the patient's initial encounter. Patient reports that signs and symptoms have been present for 1 day and indicates a pain score of 5/10. MEDICAL/SURGICAL HISTORY: Cardiovascular disease. Diabetes. Hypertension. Hysterectomy. Appe ndectomy. RADIATION DOSE: 10.17 CTDI (mGy) COMPARISON: [facility] [place], CT ABDOMEN & PELVIS W/O CONTRAST, 06/03/2018. [facility] [place], CT ABDOMEN & PELVIS W/O CONTR AST, 12/28/2017. . TECHNIQUE: Multiple contiguous axial images were obtained through the abdomen. Images were obtained using multiple row detector helical technique. Using automated exposure control and adjustment of the mA and/or kV according to patient size, radiation dose was kept as low as reasonably achievable to o btain optimal diagnostic quality images. DICOM format image data is available electronically for rev iew and comparison. FINDINGS: Severe anasarca is again noted. The liver is enlarged and stable in appearance. Minimal ascites is no gabby within the abdomen or pelvis. Moderate-sized pleural effusions are noted bilaterally with adjacen t alveolar consolidations consistent with compressive atelectasis or pneumonia. Partially calcified l eft adrenal mass is stable. The urinary bladder is unremarkable and no longer demonstrates intralumin al air. Fecal debris is noted within the rectum raising the possibility of fecal impaction. Degenerat naveed changes and scoliosis of the thoracolumbar spine are again noted. CONCLUSION: 1. Severe anasarca. 2. Moderate-sized bilateral pleural effusions with adjacent alveolar consolidations consistent with compressive atelectasis or pneumonia. 3. Fecal debris within the rectum raising the possibility of fecal impaction. 4. Stable partially calcified left adrenal mass. 5. Hepatomegaly. 6. Minimal ascites. Electronically signed by: Linwood Chadwick MD 08/30/2018 1:05 PM EDT
--- NOTE | 2018-08-30 13:07 | CT ---
EXAM DATE: 08/30/2018 11:52 AM EDT AGE/SEX: 67 years / Female INDICATIONS: Altered mental status. CLINICAL DATA: This is the patient's initial encounter. Patient reports that signs and symptoms have been present for 1 day and indicates a pain score of 0/10. MEDICAL/SURGICAL HISTORY: Cardiovascular disease. Chronic obstructive pulmonary disease. Diabetes . Hypertension. Hysterectomy. section. Appendectomy. RADIATION DOSE: 56.35 CTDI (mGy) COMPARISON: [facility] [place], CT BRAIN W/O CONTRAST, 04/10/2018. [facility] [place], CT BRAIN W/O CONTRAST, 12/28/2017. . TECHNIQUE: CT of the head without contrast. Using automated exposure control and adjustment of the mA and/or kV according to patient size, radiation dose was kept as low as reasonably achievable to ob tain optimal diagnostic quality images. DICOM format image data is available electronically for revi ew and comparison. FINDINGS: Cerebrum: Cerebral atrophy is noted. Mild periventricular and subcortical white matter small vessel ischemic changes are noted bilaterally. No acute infarct, acute hemorrhage, midline shift or extra-ax ial bleed is noted. Posterior Fossa: The cerebellum and brainstem are intact. The 4th ventricle is midline. The cerebe llopontine angle is unremarkable. Extracranial: The visualized portion of the orbits is intact. Skull: The calvaria is intact. No evidence of skull fracture. CONCLUSION: 1. Mild periventricular and subcortical white matter small vessel ischemic changes bilaterally. 2. Cerebral atrophy. 3. No acute infarct, acute hemorrhage, midline shift or extra-axial bleed. . Electronically signed by: Linwood Chadwick MD 08/30/2018 1:06 PM EDT
[2018-08-30 14:13] LABS: Amorphous Sediment,Urine Moderate /hpf; Bacteria,Urine Rare /hpf; Bilirubin,Urine Negative (Negative); Clarity,Urine Cloudy (Clear); Color,Urine Yellow (Yellw/Straw); Glucose,Urine (UA) 500 or Greater mg/dL (Negative); Hyaline Casts,Urine 1 /lpf (0-3); Leukocyte Esterase,Urine Negative (Negative); Mucus,Urine Few /lpf (Occasional); Nitrite,Urine Negative (Negative); Specific Gravity,Urine 1.013 (1.002-1.035); Squamous Epithelial Cell,Urine <1 /hpf (0-5)
[2018-08-30] MEDS ORDERED: Dextrose 50% in Water Syringe 50 ML ONE (14:48)
[2018-08-30] MEDS ORDERED: Dextrose 50% in Water 50 ML Vial IV.PUSH ONE (14:54)
[2018-08-30] MEDS ORDERED: Acetaminophen 325 MG Tablet PO PRN ×2 (15:02→16:50)
[2018-08-30] MEDS ORDERED: Bisacodyl 10 MG Supp RECTAL PRN (15:02)
[2018-08-30] MEDS ORDERED: Dextrose 50% in Water 50 ML Vial IV.PUSH PRN (15:05)
--- NOTE | 2018-08-30 15:07 | P.HPCC ---
History of Present Illness Service: Critical Care Medicine Primary Care Physician: UNKNOWN History of Present Illness: This is a 67yF with non-oliguric ESRD on IHD who presents with a few weeks of fatigue which has progressed to acute decrease in mental status today during dialysis. this also comes with an associated hypoglycemia which has been refractory to 3 d50w pushes. she denies chest pain, sob, fever, chills, abdominal pain, n/v/c/d. no other associated symptoms other than fatigue. ROS completely unremarkable. in the ER, she was found to be hypothermic and persistently hypoglycemic. CT abd/pelvis demonstrates anasarca and large left pleural effusion. trop slightly elevated. sodium low at 130. wbc normal. Review of Systems All other systems reviewed negative except as stated in HPI PMFSH - History History Provided By: Patient - Medical History Medical History: Medical History (Last Reviewed 08/30/18 @ 16:38 by Trevor Dunne MD) CAD (coronary artery disease) Diabetes End stage kidney disease Hemodialysis access, AV graft A-V fistula Anemia CAD (coronary artery disease) CHF (congestive heart failure) CHF (congestive heart failure) COPD (chronic obstructive pulmonary disease) COPD (chronic obstructive pulmonary disease) Chronic back pain Diabetes ESRD (end stage renal disease) on dialysis HLD (hyperlipidemia) Hemodialysis access, AV graft Hyperkalemia Hypertension Hypoxia - Surgical History Surgical History: Surgical History (Last Reviewed 08/30/18 @ 16:38 by Trevor Dunne MD) Stented coronary artery H/O laminectomy H/O vaginal hysterectomy H/O: History of laser refractive surgery History of tonsillectomy Hx of appendectomy Hx of heart artery stent - Family History Family History: Family History (Last Reviewed 08/30/18 @ 16:38 by Trevor Dunne MD) Other ALS (amyotrophic lateral sclerosis) Multiple sclerosis - Social History I have reviewed the patient's Social History: Yes - Tobacco History Second Hand Smoke Exposure: No Tobacco Use In Past 30 Days: No Smoking Status: Former smoker Tobacco Type: Cigarettes Packs Per Day: 1 (1ppd) Years Smoked: 35 Smoking End Date: The patient reports that she quit smoking 16 years ago. - Alcohol History How Often Do You Have a Drink Containing Alcohol: Never - Substance Use History Substance History: No History of Abuse - Travel History Recent Travel in the [facility] Within the Last 8 Weeks: No Recent Travel Out of the Country Within the Last 8 Weeks: No - Immunization History Tetanus Immunization: Unsure Hx Influenza Vaccine This Season: Yes Medications and Allergies Active Medications: Active Medications Acetaminophen (Tylenol) 650 mg PO Q6H PRN PRN Reason: TEMPERATURE > 101 F Albuterol (Duoneb Neb (Prn)) 1 ampul NEB Q2HR NEB PRN PRN Reason: WHEEZING Bisacodyl (Dulcolax Supp) 10 mg RECTAL DAILY PRN PRN Reason: if no BM in last 24h Chlorhexidine Gluconate (Chlorhexidine 2% Cloth) 3 pack TOPICAL DAILY@0400 YAMILET Stop: 09/05/18 03:59 Chlorhexidine Gluconate (Chlorhexidine 2% Cloth) 3 pack TOPICAL DAILY@0400 PRN PRN Reason: Extra cloth needed Stop: 09/05/18 03:59 Dextrose (D50w Vial) 50 ml IV.PUSH UNSCH PRN PRN Reason: PER HYPOGLYCEMIA PROTOCOL Heparin Sodium (Porcine) (Heparin Inj) 5,000 units SQ Q8HR YAMILET Insulin Human Regular (Novolin R Correctional Sugar Inj) 0 units SQ Q6HR YAMILET; Protocol Lactulose (Lactulose Liq) 30 ml PO BID YAMILET Magnesium Citrate (Citroma Liq) 300 ml PO ONCE ONE Stop: 08/30/18 15:03 Ondansetron HCl (Zofran Inj) 4 mg IV.PUSH Q6H PRN PRN Reason: NAUSEA OR VOMITING Polyethylene Glycol (Miralax) 17 gm PO BID YAMILET Senna/Docusate Sodium (Jocelyn-Colace) 1 tab PO BID YAMILET Sodium Chloride (Ns Flush) 2 ml IV.FLUSH UNSCH PRN PRN Reason: FLUSH AFTER USING IV ACCESS Allergies Allergy/AdvReac Type Severity Reaction Status Date / Time propoxyphene Allergy Intermediate RASH Verified 07/18/18 07:41 Home Medications Medication Instructions Recorded Confirmed Type albuterol sulfate [Ventolin HFA] 2 puff INHALATION Q6H PRN 06/03/18 08/30/18 History aspirin 81 mg PO DAILY 06/03/18 08/30/18 History budesonide-formoterol [Symbicort] 2 puff INHALATION BID 06/03/18 08/30/18 History atorvastatin 80 mg PO HS 08/30/18 08/30/18 History gabapentin 100 mg PO TID 08/30/18 08/30/18 History insulin detemir U-100 [Levemir 20 unit SUBCUT BID 08/30/18 08/30/18 History FlexTouch U-100 Insuln] metolazone 2.5 mg PO DAILY 08/30/18 08/30/18 History mupirocin 1 applic TOPICAL BID 08/30/18 08/30/18 History prasugrel 10 mg PO DAILY 08/30/18 08/30/18 History vit B comp no.[id number]-biotin 1 tab PO DAILY 08/30/18 08/30/18 History [Nephro-Bonita Rx] Results - Labs CBC & Chem 7: 08/30/18 12:00 08/30/18 12:00 Labs: Short CBC 08/30/18 Range/Units 12:00 WBC 5.4 (4.0-11.0) th/mm3 Hgb 10.1 L (11.6-15.3) gm/dL Hct 31.6 L (35.0-46.0) % Plt Count 306 (150-450) th/mm3 BMP 08/30/18 12:00 Sodium 135 L Potassium 3.4 L Chloride 100 Carbon Dioxide 25.4 BUN 37 H Creatinine 2.95 H Calcium 8.9 Cardiac Enzymes 08/30/18 Range/Units 12:00 Troponin I 0.08 H (0.02-0.05) ng/mL Liver Function 08/30/18 Range/Units 12:00 Total Bilirubin 0.1 L (0.2-1.0) mg/dL AST 35 (15-37) U/L ALT 19 (10-53) U/L Alkaline Phosphatase 135 H (45-117) U/L Albumin 2.1 L (3.4-5.0) g/dL Urine 08/30/18 Range/Units 13:30 Urine Color Yellow (Yellw/Straw) Urine Clarity Cloudy H (Clear) Urine pH 5.0 (5.0-8.5) Ur Specific [place] 1.013 (1.002-1.035) Urine Protein 500 or greater (Neg-Trace) mg/dL Urine Glucose (UA) 500 or greater (Negative) mg/dL - Imaging Impressions Abdomen/Pelvis CT 08/30/18 11:21 CONCLUSION: 1. Severe anasarca. 2. Moderate-sized bilateral pleural effusions with adjacent alveolar consolidations consistent with compressive atelectasis or pneumonia. 3. Fecal debris within the rectum raising the possibility of fecal impaction. 4. Stable partially calcified left adrenal mass. 5. Hepatomegaly. 6. Minimal ascites. Chest X-Ray 08/30/18 11:21 CONCLUSION: 1. Apparent interval increase in left effusion. 2. Bilateral pulmonary opacities remain which may indicate pulmonary edema. 3. No pneumothorax identified. 4. Rotated exam. Head CT 08/30/18 11:21 CONCLUSION: 1. Mild periventricular and subcortical white matter small vessel ischemic changes bilaterally. 2. Cerebral atrophy. 3. No acute infarct, acute hemorrhage, midline shift or extra-axial bleed. . Exam Vital signs: Vital Signs 08/30/18 11:34 08/30/18 12:00 08/30/18 13:00 Temperature 33.4 C L 32.7 C L Pulse Rate 52 L 47 L 48 L Respiratory Rate 18 18 21 Blood Pressure 190/100 H 165/73 H 159/70 H Pulse Oximetry 94 L 95 99 08/30/18 14:00 Temperature Pulse Rate 51 L Respiratory Rate 19 Blood Pressure 149/65 H Pulse Oximetry 98 Intake & Output 08/29/18 08/30/18 08/30/18 18:59 06:59 18:59 Weight 68.353 kg Narrative: gen: middle-aged female who appears older than stated age, lying in bed, somnolent but arousable to loud voice. heent: nc. at. perrl. mmm. neck: +jvd above the level of the mandible. trachea midline. chest: equal chest rise. room air. cv: bradycardic rate in the 40s, regular rhythm. sinus. hemodynamically stable. abd: soft, nontender, nondistended. no guarding. extr: 2+ edema. distal pulses 2+. warm, well perfused. neuro: RASS -2. arouses to loud voice. awakens and follows commands. Septic Shock Reassessment Septic shock perfusion: reassessment completed Caprini VTE Risk Assessment Caprini VTE Risk Assessment: Moderate/High Risk (score >= 2) Caprini Risk Assessment Model: Point Value = 1 Point Value = 2 Point Value = 3 Point Value = 5 Age 41-60 Minor surgery BMI > 25 kg/m2 Swollen legs Varicose veins or History of unexplained or recurrent spontaneous Oral contraceptives or hormone replacement Sepsis (< 1 month) Serious lung disease, including pneumonia (< 1 month) Abnormal pulmonary function Acute myocardial infarction Congestive heart failure (< 1 month) History of inflammatory bowel disease Medical patient at bed rest Age 61-74 Arthroscopic surgery Major open surgery (> 45 min) Laparoscopic surgery (> 45 min) Malignancy Confined to bed (> 72 hours) Immobilizing plaster cast Central venous access Age >= 75 History of VTE Family history of VTE Factor V Leiden Prothrombin [id number] Lupus anticoagulant Anticardiolipin antibodies Elevated serum homocysteine Heparin-induced thrombocytopenia Other congenital or acquired thrombophilia Stroke (< 1 month) Elective arthroplasty Hip, pelvis, or leg fracture Acute spinal cord injury (< 1 month) Prophylaxis Regimen: Total Risk Factor Score Risk Level Prophylaxis Regimen 0-1 Low Early ambulation 2 Moderate Order ONE of the following: *Sequential Compression Device (SCD) *Heparin 5000 units SQ BID 3-4 Higher Order ONE of the following medications: *Heparin 5000 units SQ TID *Enoxaparin/Lovenox 40 mg SQ daily (WT < 150 kg, CrCl > 30 mL/min) *Enoxaparin/Lovenox 30 mg SQ daily (WT < 150 kg, CrCl > 10-29 mL/min) *Enoxaparin/Lovenox 30 mg SQ BID (WT < 150 kg, CrCl > 30 mL/min) AND/OR *Sequential Compression Device (SCD) 5 or more Highest Order ONE of the following medications: *Heparin 5000 units SQ TID (Preferred with Epidurals) *Enoxaparin/Lovenox 40 mg SQ daily (WT < 150 kg, CrCl > 30 mL/min) *Enoxaparin/Lovenox 30 mg SQ daily (WT < 150 kg, CrCl > 10-29 mL/min) *Enoxaparin/Lovenox 30 mg SQ BID (WT < 150 kg, CrCl > 30 mL/min) AND *Sequential Compression Device (SCD) Assessment and Plan - Assessment and Plan Plan: Assessment: 67yF with acute metabolic encephalopathy, hypothermia, hypoglycemia. high concern for sepsis, although myxedema coma also within the differential. clearly critically ill and high concern for decompensation and . admit to ICU. Plan by systems: Neurologic: Acute metabolic encephalopathy - frequent neuro checks - trend glucoses as hypoglycemia could be a contributing cause - send TSH, free t4, t3 - CT head 08/30 negative for acute disease - check ammonia level - BUN normal, uremia unlikely - send UDS, tylenol, salicylates, etoh levels. - avoid long-acting sedatives Respiratory: Large left pleural effusion - nc o2 as tolerated - oob with assist - nebs - aggressive pulmonary toilet - will need left diagnostic thoracentesis to rule out empyema. has been drained in the past. Cardiovascular: Elevated troponin Type II NSTEMI, secondary to demand ischemia Sinus bradycardia Acute congestive heart failure exacerbation, diastolic type - unlikely to be acute coronary syndrome - will not heparinize - trend troponins - send TFTs. - hemodynamically stable bradycardia - forced diuresis Renal: End-stage renal disease - nephrology consult - HD per nephrology -- Strict I/Os FEN/GI: Acute intravascular volume overload Hypervolemic hypernatremia Constipation - renal diet - swallow evaluation - replace electrolytes prn - daily bmp, mg, phos - forced diuresis - aggressive bowel regimen Heme/ID: Possible Sepsis, present on admission - blood cultures - will need diagnostic thoracentesis and send for culture and cell count - vancomycin with pharmacy dosing - zosyn - would have low threshold to de-escalate abx therapy if negative cultures - send procalcitonin Endocrine: Hypoglycemia Hypothermia -- SSI - frequent glucose checks - master ramirez - send TFTs - d10w @ 42cc/hr - send random cortisol. Prophylaxis: GI Prophylaxis no GI prophylaxis indicated DVT Prophylaxis -- SCDs [facility] Lines: PIV Dispo: Admit to ICU. This patient remains critically ill with one or more organ systems which are or may become a threat to life. I have spent in excess of 51 minutes discontinuously in the care and management of this patient. This time is exclusive of procedures, and includes, but is not limited to, evaluation of the patient, review of the medical record, discussions with family, consultants, nursing staff, or respiratory therapy, and documentation in the medical record.
[2018-08-30] MEDS ORDERED: Vancomycin Consult Pharmacy OTHER PRN (15:16)
[2018-08-30] MEDS ORDERED: Magnesium Citrate Liq 300 ML Bottle PO ONE (15:30)
--- NOTE | 2018-08-30 16:22 | OTSOAPIP ---
RECEIVED OCCUPATIONAL THERAPY ORDER. ATTEMPTED TO SEE PATIENT, HOWEVER PATIENT CURRENTLY WITH HYPOTHERMIA AND 92 TEMPERATURE UNDER BEAR HUGGER. EVALUATION HELD. WILL REATTEMPT TOMORROW OR WHEN PATIENT IS MEDICALLY STABLE. INTERDISCIPLINARY COMMUNICATION: SPOKE WITH RN Therapist: Alia Carvalho OTR/L Signature on file
[2018-08-30 16:23] LABS: Free T4 (Free Thyroxine) 0.91 ng/dL (0.76-1.46); Thyroid Stimulating Hormone 1.47 uIU/mL (0.358-3.740); Triiodothyronine (T3) Free 0.95 pg/mL (2.18-3.98)
[2018-08-30] MEDS ORDERED: Dextrose 10% in Water Inj 1,000 ML IV.CONT SCH (16:45)
[2018-08-30] MEDS ORDERED: Gelatin 12 MM/7 MM Topical Foam TOPICAL PRN (16:50)
[2018-08-30] MEDS ORDERED: Sod Chloride 0.9% Inj 1,000 ML OTHER PRN ×2 (16:50)
[2018-08-30] MEDS ORDERED: Heparin 10,000 UNITS/10 ML Vial (for IV use) OTHER PRN ×2 (16:50)
[2018-08-30] MEDS ORDERED: Sod Chloride 0.9% Inj 1,000 ML IV.CONT PRN (16:50)
[2018-08-30] MEDS ORDERED: Albumin Human 25% Inj 100 ML IV.SIG PRN (16:50)
[2018-08-30] MEDS ORDERED: Lidocaine 1% Inj 50 ML Vial ONE (18:09)
--- NOTE | 2018-08-30 18:59 | P.PCN ---
Date of procedure: 08/30/18 Procedure: Percutaneous Pigtail Tube Thoracostomy Procedure Note Left-sided 8 Cameroonian percutaneous pigtail chest Diagnosis: Left-sided pleural effusion Indications: Left-sided pleural effusion with hypothermia, concern for empyema Consent: Obtained from the patient Anesthesia: 1% lidocaine locally Description of the Procedure: The patient was placed in the supine position. The arm was abducted above the head and secured. The left lateral chest was prepped and draped sterilely to include the axilla and nipple. 1% Lidocaine was infiltrated subcutaneously and into the tissues down to the periosteum of the rib. The 5th intercostal space was identified. A small incision was made using a #11 blade. Just posterior to the mid-axillary line, a 8 Fr pigtail catheter with stylet and pencil point trochar introducer were inserted superior to the adjacent rib and the pigtail catheter was advanced over the trochar in a modified Seldinger Technique, easily and without resistance. The catheter was connected to a Pleur-o-vac and connected to [id number] suction. The catheter was sutured to the skin using a 3-0 silk sandal suture and an occlusive dressing was applied. There were no immediate complications noted. There was minimal EBL. The patient tolerated the procedure well. Procedure was done using direct ultrasound guidance. The largest pocket of simple fluid was found using ultrasound guidance. Under direct ultrasound real- time visualization, the needle guidewire and catheter were advanced into the pleural space. 800 mL's of serous fluid was obtained. A Chest x-ray has been ordered. I personally performed the procedure.
[2018-08-30] MEDS ORDERED: Lidocaine 1% Inj 50 ML Vial INFILTRATN ONE (19:30)
--- NOTE | 2018-08-30 19:32 | XR ---
EXAM DATE: 08/30/2018 6:52 PM EDT AGE/SEX: 67 years / Female INDICATIONS: Post chest tube placement. CLINICAL DATA: This is the patient's subsequent encounter. Patient reports that signs and symptoms h ave been present for 4 - 6 days and indicates a pain score of 0/10. MEDICAL/SURGICAL HISTORY: Chronic obstructive pulmonary disease. Cardiovascular disease. Hype rtension. Anemia. None. [place] [facility] [place]/2018. . FINDINGS: A pleural drainage catheter has been placed on the left and with interim reduction of the pleural eff usion, now small. There is patchy parenchymal consolidation of the left base, slightly improved but n ow appears somewhat nodular/masslike. I don't see a pneumothorax. CONCLUSION: Decreased left pleural effusion after pleural drainage catheter placement. No pneumothorax. There is patchy and somewhat nodular left base consolidation. Electronically signed by: Rafa Rocha MD 08/30/2018 7:31 PM EDT
--- NOTE | 2018-08-30 19:43 | MB ---
cc: Des Toro MD DATE: 08/30/2018 REASON FOR CONSULTATION: End-stage renal disease, on hemodialysis, for management. HISTORY OF PRESENT ILLNESS: This is a 67-year-old female with a past medical history of ischemic heart disease, congestive heart failure, hypertension, end-stage renal disease, on hemodialysis 3 times per week, diabetes mellitus, chronic anemia, chronic obstructive pulmonary disease, who came to the hospital with a complaint of generalized weakness and feeling tired. I was called to see the patient for the management of dialysis. She has been on hemodialysis on Mondays, Wednesdays and Fridays. The patient went for her regular dialysis yesterday and according to the patient, since morning, she started feeling weak and tired and had vomiting. She vomited 3 times since morning, and she has been feeling cold. She denies any history of fever. She does not have any chest pain. She has mild shortness of breath. No abdominal pain. No history of diarrhea. The patient has a past history of a recurrent pleural effusion and she has had multiple thoracenteses done. She currently does not have any central catheter and she is being dialyzed with a left arm AV fistula. PAST MEDICAL HISTORY: Ischemic heart disease, congestive heart failure, end-stage renal disease, on hemodialysis, diabetes mellitus, chronic obstructive pulmonary disease, chronic anemia, chronic back pain. PAST SURGICAL HISTORY: Left arm AV fistula surgery, multiple thoracenteses done, history of hysterectomy, , appendicectomy, cardiac catheterization with stenting, laminectomy. REVIEW OF SYSTEMS: The patient has generalized weakness, feeling tired. Denies any history of fever. No sore throat. Has a mild cough and shortness of breath. No chest pain. No palpitations. Has nausea and vomiting and vomited 3 times since morning. There is no history of diarrhea. Denies any abdominal pain. SOCIAL HISTORY: The patient is and lives with her . She has a past history of smoking. There is no history of heavy alcoholism. FAMILY HISTORY: Noncontributory. ALLERGIES: SHE IS ALLERGIC TO PROPOXYPHENE. MEDICATIONS: Currently, she is on: 1. Tylenol. 2. Albuterol. 3. Dulcolax. 4. Bumex 1 mg q.8 hours. 5. Catapres 0.1 mg p.r.n. 6. Epogen with dialysis. 7. Zosyn 2.25 grams IV q.8 hours. 8. Vancomycin, 1 dose was given. PHYSICAL EXAMINATION: GENERAL: The patient is sleepy, but she is arousable. VITAL SIGNS: She has been hypothermic. Her temperature has been 91 and it is improved to 92.8 after she has been with a Pricilla Hugger. Her blood pressure has been stable at 143/63. Oxygen saturations on 2 liters nasal cannula is 99% to 100%. HEENT: Pupils are mid constricted. Nonicteric sclerae. Conjunctivae pale. NECK: Supple. JVD slightly elevated. LUNGS: The patient has bilateral decreased air entry with basal rales and scattered wheezing. HEART: S1, S2. Regular rhythm. ABDOMEN: Distended, soft, lax. There is no tenderness. Bowel sounds positive. EXTREMITIES: She has mild edema. LABORATORY DATA: WBC count 5.4, hemoglobin 10.1, platelet count 306. INR is 1.0. Arterial blood gas done, which shows a pH of 7.33, pCO2 of 45, pO2 of 55. Sodium 135, potassium 3.4, chloride 100, bicarbonate 25.4, BUN 37, creatinine 2.95, calcium 8.9, lactic acid 1.0, glucose 83. Ammonia level is 24. Troponin I is 0.08. Total protein 6.8, albumin 2.1. TSH is 1.47. Urinalysis is showing cloudy urine. IMAGING STUDIES: The patient had a CT scan of the brain done which shows mild periventricular white matter disease, cerebral atrophy, no acute infarction. Chest x-ray was done which shows the patient has bilateral pulmonary opacities, increase in left pleural effusion. The patient also had a CT scan of the abdomen and pelvis done, which shows anasarca, moderate bilateral pleural effusions, fecal debris seen in the rectum, hepatomegaly, minimal ascites. ASSESSMENT: 1. Hypothermia, rule out sepsis. 2. Pleural effusion and history of congestive heart failure. 3. Anasarca. 4. Possible pneumonia. 5. End-stage renal disease, on hemodialysis. 6. Anemia. 7. Ischemic heart disease. PLAN: The patient has been on Zosyn and vancomycin. Cultures are done. She is hypothermic and we need to rule out sepsis, possibly also because of pneumonia. She possibly will need a thoracentesis. She is due for dialysis tomorrow. I will arrange for dialysis tomorrow and she will be getting Epogen at dialysis. We will try to remove more fluid. Her blood pressure has been stable. Thank you for the consultation. I will follow the patient while she is in the hospital. MD MAYTE Bhat/sara , 05:54 PM , 06:09 PM
[2018-08-30] MEDS: Piperacil/Tazo 2.25 GM Premix 50 ML IV.SIG SCH (20:30)
[2018-08-30] MEDS: Senna/Docusate Sodium 8.6/50 MG Tablet PO SCH (20:30)
[2018-08-30] MEDS: Polyethylene Glycol 3350 17 GM Packet PO SCH (20:30)
[2018-08-30] MEDS: metOLazone 5 MG Tablet PO SCH (20:30)
[2018-08-30] MEDS: Insulin NovoLIN Regular Correctional Sugar Inj SQ SCH (20:30)
[2018-08-30] MEDS: Heparin - SQ 10,000 UNITS/ML Vial SQ SCH (21:07)
[2018-08-30 21:08] LABS: Lymphocytes,Pleural Fluid 83 %; Monocytes,Pleural Fluid 4 %; Neutrophils,Pleural Fluid 12 %; RBC,Pleural Fluid 5746 /mm3 (0-0)
--- NOTE | 2018-08-30 22:29 | ECG ---
Date Performed: 08/30/2018 Time Performed: 11:28:12 PTAGE: 67 years EKG: SINUS BRADYCARDIA POSSIBLE LEFT ATRIAL ENLARGEMENT MODERATE INTRAVENTRICULAR CONDUCTION DEL AY NONSPECIFIC T-WAVE ABNORMALITY PROLONGED QT INTERVAL ABNORMAL ECG PREVIOUS TRACING : 08/08/2018 06.36 Compared to previous tracing, SB and increased QT present DOCTOR: Dunia Reddy Interpretating Date/Time 08/30/2018 22:27:35
[2018-08-30 23:31] LABS: Amphetamine Urine With Conf Neg (Neg); Barbiturate Urine With Conf Neg (Neg); Benzodiazepine Urine With Conf Neg (Neg)
[2018-08-31 00:30] LABS: Hepatitis A IgM Antibody Indeterminate (Nonreactive); Hepatitits B Surface Antigen Nonreactive (Nonreactive)
[2018-08-31] MEDS: Morphine Sulfate Inj 2 MG/ML Vial IV.PUSH PRN ×6 (00:59→23:50)
[2018-08-31] MEDS: Insulin NovoLIN Regular Correctional Sugar Inj SQ SCH ×5 (01:07→23:56)
[2018-08-31] MEDS: hydrALAZINE 50 MG Tablet PO SCH ×2 (02:29→19:09)
[2018-08-31] MEDS ORDERED: Chlorhexidine Gluconate 2% 1 Pack (2 Cloths) TOPICAL PRN (04:00)
[2018-08-31] MEDS: Chlorhexidine Gluconate 2% 1 Pack (2 Cloths) TOPICAL SCH (04:33)
[2018-08-31] MEDS: Piperacil/Tazo 2.25 GM Premix 50 ML IV.SIG SCH ×4 (04:34→20:59)
[2018-08-31] MEDS: Heparin - SQ 10,000 UNITS/ML Vial SQ SCH ×3 (05:27→21:14)
[2018-08-31] MEDS: hydrALAZINE HCl Inj 20 MG/ML Vial IV.PUSH PRN ×2 (06:15→10:09)
--- NOTE | 2018-08-31 07:17 | P.PNCC ---
Subjective Subjective Remarks/Hospital Course: Hospital Course: This is a 67yF with non-oliguric ESRD on IHD who presents with a few weeks of fatigue which has progressed to acute decrease in mental status today during dialysis. this also comes with an associated hypoglycemia which has been refractory to 3 d50w pushes. she denies chest pain, sob, fever, chills, abdominal pain, n/v/c/d. no other associated symptoms other than fatigue. ROS completely unremarkable. in the ER, she was found to be hypothermic and persistently hypoglycemic. CT abd/pelvis demonstrates anasarca and large left pleural effusion. trop slightly elevated. sodium low at 130. wbc normal. Subjective: 08/31: clinically improving. subjectively feels better. hypoglycemia resolved. hypothermia resolved. on room air. still grossly appears volume overloaded. effusion consistent with transudate and likely secondary to heart failure. ROS otherwise negative. Objective Vital Signs / I&O: Vital Signs 08/30/18 11:34 08/30/18 12:00 08/30/18 13:00 Temperature 33.4 C L 32.7 C L Pulse Rate 52 L 47 L 48 L Respiratory Rate 18 18 21 Blood Pressure 190/100 H 165/73 H 159/70 H Pulse Oximetry 94 L 95 99 08/30/18 14:00 08/30/18 15:00 08/30/18 16:00 Temperature 33.6 C L 33.6 C L 33.8 C L Pulse Rate 51 L 48 L 46 L Respiratory Rate 19 16 16 Blood Pressure 149/65 H 145/64 H 143/63 H Pulse Oximetry 98 99 100 08/30/18 17:00 08/30/18 20:00 08/30/18 21:48 Temperature 33.8 C L 35.2 C L 36.4 C L Pulse Rate 73 58 L 66 Respiratory Rate 16 15 Blood Pressure 164/75 H 175/72 H Pulse Oximetry 99 100 97 08/30/18 22:00 08/30/18 23:00 08/31/18 00:00 Temperature 36.5 C 37.1 C 37.5 C Pulse Rate 67 68 68 Respiratory Rate 16 15 17 Blood Pressure 172/72 H 184/77 H 198/81 H Pulse Oximetry 98 98 97 08/31/18 01:00 08/31/18 02:00 08/31/18 02:04 Temperature 37.3 C 37.3 C 37.3 C Pulse Rate 68 68 68 Respiratory Rate 21 15 15 Blood Pressure 193/80 H 210/86 H 207/84 H Pulse Oximetry 96 96 96 08/31/18 03:00 08/31/18 04:00 08/31/18 05:00 Temperature 37.1 C 37.1 C 36.9 C Pulse Rate 68 68 68 Respiratory Rate 16 16 15 Blood Pressure 191/79 H 180/75 H 178/75 H Pulse Oximetry 97 98 97 08/31/18 06:00 08/31/18 06:33 08/31/18 07:00 Temperature 36.8 C 36.7 C 36.6 C Pulse Rate 68 69 69 Respiratory Rate 17 14 13 Blood Pressure 190/79 H 172/73 H Pulse Oximetry 99 100 Intake & Output 08/30/18 08/31/18 08/31/18 18:59 06:59 18:59 Intake Total 300 / 300 50 / 50 Output Total 1745 / 1745 Balance 300 / 300 -1695 / -1695 Weight 68.353 kg 75 kg Intake: IV 300 / 300 50 / 50 Zosyn 2.25 GM Premix 50 ML @ 50 / 50 100 mls/hr IV.SIG Q8H [facility] Rx#: [id number] Zosyn 3.375 GM Premix 50 ML @ 50 / 50 100 mls/hr IV.SIG ONCE ONE Rx#: [id number] Vancomycin Inj 1,000 MG In NS 250 / 250 Inj 250 ML @ 250 mls/hr IV.SIG ONCE ONE Rx#:[id number] Output: Urine Amount (Catheter) 275 / 275 Indwelling Urethral Catheter 275 / 275 Chest Tube Drainage 1470 / 1470 #1 Left Upper Pleural 1470 / 1470 Other: Date of Last Bowel Movement 08/30/18 08/30/18 Result Diagrams: 08/31/18 06:54 08/31/18 06:54 Objective Remarks: gen: middle-aged female who appears older than stated age, lying in bed, awake and alert heent: nc. at. perrl. mmm. neck: +jvd above the level of the mandible. trachea midline. chest: equal chest rise. room air. left chest tube with a total of 1500cc serous fluid, no air leak. cv: normal rate, regular rhythm. sinus. abd: soft, nontender, nondistended. no guarding. extr: 2+ edema. distal pulses 2+. warm, well perfused. neuro: RASS 0. awake, alert, oriented. follows commands. Assessment and Plan - Assessment and Plan Plan: Assessment: 67yF with acute metabolic encephalopathy, hypothermia, hypoglycemia. high concern for sepsis. now clinically improving. stable to transfer out of ICU. Plan by systems: Neurologic: Acute metabolic encephalopathy- resolved - TFTs normal. - CT head 08/30 negative for acute disease - ammonia wnl. - BUN normal, uremia unlikely - avoid long-acting sedatives - restart home gabapentin 100mg po qHS Respiratory: Large left pleural effusion - nc o2 as tolerated - oob with assist - nebs - aggressive pulmonary toilet - s/p left chest tube: remain in place today given large volume. keep to suction today. CXR in AM. Cardiovascular: Elevated troponin Type II NSTEMI, secondary to demand ischemia- improving. Sinus bradycardia- resolved Acute congestive heart failure exacerbation, diastolic type - unlikely to be acute coronary syndrome - will not heparinize - trops downtrending. - TFTs normal. - forced diuresis Renal: End-stage renal disease - nephrology consult - HD per nephrology -- Strict I/Os - needs ongoing HD. FEN/GI: Acute intravascular volume overload Hypervolemic hypernatremia Constipation- resolved - renal diet - swallow evaluation - replace electrolytes prn - daily bmp, mg, phos - forced diuresis - aggressive bowel regimen: successful BM 08/30. Heme/ID: Possible Sepsis, present on admission - blood cultures - pleural fluid culture NGTD. - vancomycin with pharmacy dosing - zosyn - would have low threshold to de-escalate abx therapy if negative cultures - send procalcitonin Endocrine: Hypoglycemia- resolved Hypothermia- resolved - SSI - master ashley - TFTs wnl. - d/c d10w. - random cortisol 20. not c/w adrenal insufficiency. Prophylaxis: GI Prophylaxis no GI prophylaxis indicated DVT Prophylaxis -- SCDs SQH Lines: PIV Dispo: transfer out of ICU.
[2018-08-31 07:40] LABS: Eos # (Auto) 0.1 th/mm3 (0.0-0.4); Eos % (Auto) 1.2 % (0.0-4.0); Hematocrit 31.1 % (35.0-46.0); Lymph # (Auto) 0.8 th/mm3 (1.0-4.8); Lymph % (Auto) 15.8 % (9.0-44.0); Mean Corpuscular HGB Conc 32.2 % (32.0-36.0); Mean Corpuscular Hemoglobin 30.1 pg (27.0-34.0); Mean Corpuscular Volume 93.5 fL (80.0-100.0); Mean Platelet Volume 8.5 fL (7.0-11.0); Mono # (Auto) 0.5 th/mm3 (0.0-0.9); Mono % (Auto) 10.3 % (0.0-8.0); Neut # (Auto) 3.4 th/mm3 (1.8-7.7); Neut % (Auto) 71.7 % (16.0-70.0); Platelet Count 283 th/mm3 (150-450); Red Blood Count 3.32 mil/mm3 (4.00-5.30); Red Cell Distribution Width 16.5 % (11.6-17.2); White Blood Count 4.8 th/mm3 (4.0-11.0)
[2018-08-31 08:12] LABS: Alanine Aminotransferase 23 U/L (10-53); Anion Gap 12 meq/L (5-15); Aspartate Aminotransferase 43 U/L (15-37); Blood Urea Nitrogen 43 mg/dL (7-18); Calcium 8.7 mg/dL (8.5-10.1); Carbon Dioxide 22.9 meq/L (21.0-32.0); Chloride 98 meq/L (98-107); Glomerular Filtration Rate 14 mL/min (>89); Glucose,Random 296 mg/dL (74-106); Magnesium 2.1 mg/dL (1.5-2.5); Phosphorus 6.6 mg/dL (2.5-4.9); Potassium 4.5 meq/L (3.5-5.1); Sodium 133 meq/L (136-145)
[2018-08-31 08:13] LABS: Alkaline Phosphatase 131 U/L (45-117); Total Protein 5.9 g/dL (6.4-8.2); Troponin I 0.06 ng/mL (0.02-0.05); Vancomycin,Random 7.7 Comment
[2018-08-31] MEDS: metOLazone 5 MG Tablet PO SCH (10:10)
--- NOTE | 2018-08-31 10:16 | P.PNNP ---
Subjective Interval history: Seen during hemodialysis. Reports shortness of pain and chest discomfort from chest tube site. Denies any nausea or vomiting. <Jessica Clemons - Last Filed: 08/31/18 10:03> Physical Exam Vital signs: Vital Signs 08/30/18 11:34 08/30/18 12:00 08/30/18 13:00 Temperature 92.2 F L 91 F L Pulse Rate 52 L 47 L 48 L Respiratory Rate 18 18 21 Blood Pressure 190/100 H 165/73 H 159/70 H Pulse Oximetry 94 L 95 99 08/30/18 14:00 08/30/18 15:00 08/30/18 16:00 Temperature 92.5 F L 92.5 F L 92.8 F L Pulse Rate 51 L 48 L 46 L Respiratory Rate 19 16 16 Blood Pressure 149/65 H 145/64 H 143/63 H Pulse Oximetry 98 99 100 08/30/18 17:00 08/30/18 20:00 08/30/18 21:48 Temperature 92.8 F L 95.4 F L 97.5 F L Pulse Rate 73 58 L 66 Respiratory Rate 16 15 Blood Pressure 164/75 H 175/72 H Pulse Oximetry 99 100 97 08/30/18 22:00 08/30/18 23:00 08/31/18 00:00 Temperature 97.7 F 98.8 F 99.5 F Pulse Rate 67 68 68 Respiratory Rate 16 15 17 Blood Pressure 172/72 H 184/77 H 198/81 H Pulse Oximetry 98 98 97 08/31/18 01:00 08/31/18 02:00 08/31/18 02:04 Temperature 99.1 F 99.1 F 99.1 F Pulse Rate 68 68 68 Respiratory Rate 21 15 15 Blood Pressure 193/80 H 210/86 H 207/84 H Pulse Oximetry 96 96 96 08/31/18 03:00 08/31/18 04:00 08/31/18 05:00 Temperature 98.8 F 98.8 F 98.4 F Pulse Rate 68 68 68 Respiratory Rate 16 16 15 Blood Pressure 191/79 H 180/75 H 178/75 H Pulse Oximetry 97 98 97 08/31/18 06:00 08/31/18 06:33 08/31/18 07:00 Temperature 98.2 F 98.1 F 97.9 F Pulse Rate 68 69 69 Respiratory Rate 17 14 13 Blood Pressure 190/79 H 172/73 H Pulse Oximetry 99 100 08/31/18 08:00 08/31/18 09:00 Temperature 98.6 F Pulse Rate 69 69 Respiratory Rate 14 18 Blood Pressure 188/81 H 184/81 H Pulse Oximetry 100 97 Intake & Output 08/30/18 08/31/18 08/31/18 18:59 06:59 18:59 Intake Total 300 / 300 50 / 50 Output Total 1745 / 1745 Balance 300 / 300 -1695 / -1695 Weight 68.353 kg 75 kg Intake: IV 300 / 300 50 / 50 Zosyn 2.25 GM Premix 50 ML @ 50 / 50 100 mls/hr IV.SIG Q8H [facility] Rx#: [id number] Zosyn 3.375 GM Premix 50 ML @ 50 / 50 100 mls/hr IV.SIG ONCE ONE Rx#: [id number] Vancomycin Inj 1,000 MG In NS 250 / 250 Inj 250 ML @ 250 mls/hr IV.SIG ONCE ONE Rx#:[id number] Output: Urine Amount (Catheter) 275 / 275 Indwelling Urethral Catheter 275 / 275 Chest Tube Drainage 1470 / 1470 #1 Left Upper Pleural 1470 / 1470 Other: Date of Last Bowel Movement 08/30/18 08/30/18 Narrative: GENERAL: Alert and oriented SKIN: Warm and dry. HEAD: Normocephalic. EYES: No scleral icterus. No injection or drainage. NECK: Supple, trachea midline. Positive JVD CARDIOVASCULAR: Regular rate and rhythm without murmurs, gallops, or rubs. Right AVG with positive thrill and bruit RESPIRATORY: Breath sounds diminished bilaterally. No accessory muscle use. Chest tube left chest wall. GASTROINTESTINAL: Abdomen soft, non-tender, nondistended. MUSCULOSKELETAL: No cyanosis, moderate dependent edema. BACK: Nontender without obvious deformity. No CVA tenderness. - Urinary Catheter Management Indwelling Urethral Catheter Cath placed during this visit: no <Jessica Clemons - Last Filed: 08/31/18 10:03> - Urinary Catheter Management Indwelling Urethral Catheter Cath placed during this visit: no <Des Toro - Last Filed: 09/09/18 11:26> Assessment and Plan - Assessment (1) ESRD (end stage renal disease) Code(s): N18.6 - End stage renal disease Status: Acute Plan: ESRD on hemodialysis on Wednesday, Wednesday and Wednesday. Last hemodialysis on Wednesday AVG right upper arm Plan Seen during hemodialysis today will remove fluid as tolerated. Avoid IVF administration and gadolinium. Renal, high protein diet Hyperphosphatemia will add PhosLo Continue epogen with dialysis Continue Bumex and metolazone Will follow BMP Labs in AM (2) Severe sepsis Code(s): A41.9 - Sepsis, unspecified organism; R65.20 - Severe sepsis without septic shock Status: Acute Plan: Cultures pending, on antibiotics, renal dose as appropriate (3) Pleural effusion Code(s): J90 - Pleural effusion, not elsewhere classified Status: Acute Plan: Chest tube left chest wall. (4) Diabetes Code(s): E11.9 - Type 2 diabetes mellitus without complications Status: Acute Qualifiers: Diabetes mellitus senior living insulin use: with oysterman use Plan: Maintain blood sugars 140 mg/dl to 180 ml/dl while hospitalized. (5) Hypertension Code(s): I10 - Essential (primary) hypertension Status: Acute Plan: Hypertensive, expect improvement after hemodialysis, will increase hydralazine. <Jessica Celmons - Last Filed: 08/31/18 10:03> - Assessment (1) ESRD (end stage renal disease) Code(s): N18.6 - End stage renal disease Status: Acute Plan: Patient seen and examined, agree with above. HD and remove fluid as tolerated. Phoslo added. Continue diuretics. (2) Severe sepsis Code(s): A41.9 - Sepsis, unspecified organism; R65.20 - Severe sepsis without septic shock Status: Acute (3) Pleural effusion Code(s): J90 - Pleural effusion, not elsewhere classified Status: Acute (4) Diabetes Code(s): E11.9 - Type 2 diabetes mellitus without complications Status: Acute Qualifiers: Diabetes mellitus senior living insulin use: with oysterman use (5) Hypertension Code(s): I10 - Essential (primary) hypertension Status: Acute <Des Toro - Last Filed: 09/09/18 11:26>
[2018-08-31] MEDS: Calcium Acetate 667 MG Capsule PO SCH ×2 (12:11→17:16)
[2018-08-31] MEDS: Polyethylene Glycol 3350 17 GM Packet PO SCH ×2 (12:11→21:01)
[2018-08-31] MEDS: Senna/Docusate Sodium 8.6/50 MG Tablet PO SCH ×2 (12:12→21:13)
--- NOTE | 2018-08-31 14:39 | OTSOAPIP ---
TIME SESSION COMPLETED: TREATMENT TIME: 0 MINS. CHART REVIEWED. ATTEMPTED TO SEE PATIENT X2, FIRST SHE WAS RECEIVING DIAYLSIS THE 2ND TIME BEING PREPARE TO BE TRANSFER TO ANOTHER UNIT PLAN: WILL SEE NEXT TREATMENT DAY Therapist: Kandice Montelongo Signature on file
[2018-08-31] MEDS ORDERED: Vancomycin Inj 1,500 MG in Sodium Chlor 0.9% Inj 500 ML IV.SIG ONE (16:00)
[2018-08-31] MEDS: Gabapentin 100 MG Capsule PO SCH (21:14)
[2018-09-01] MEDS: Morphine Sulfate Inj 2 MG/ML Vial IV.PUSH PRN ×4 (03:49→17:18)
[2018-09-01] MEDS: Chlorhexidine Gluconate 2% 1 Pack (2 Cloths) TOPICAL SCH (04:43)
[2018-09-01] MEDS: Piperacil/Tazo 2.25 GM Premix 50 ML IV.SIG SCH ×3 (04:54→20:05)
[2018-09-01] MEDS: Heparin - SQ 10,000 UNITS/ML Vial SQ SCH ×3 (05:00→22:52)
[2018-09-01] MEDS: Insulin NovoLIN Regular Correctional Sugar Inj SQ SCH ×4 (05:00→22:59)
--- NOTE | 2018-09-01 06:57 | XR ---
EXAM DATE: 09/01/2018 5:00 AM EDT AGE/SEX: 67 years / Female INDICATIONS: Painful respirations, short of breath CLINICAL DATA: This is the patient's subsequent encounter. Patient reports that signs and symptoms h ave been present for 4 - 6 days and indicates a pain score of 6/10. MEDICAL/SURGICAL HISTORY: Chronic obstructive pulmonary disease. Chest tube, left. COMPARISON: C, CHEST 1V SINGLE AP, 08/30/2018. . FINDINGS: Stable chest tube in the left inferior hemithorax. Progressive airspace consolidation in the left low er lung zone with small residual pleural effusion. Increased patchy airspace disease in the right low er lung zone. Cardiomediastinal contours are stable with indistinct central pulmonary vessels. Remain patrica of exam is unchanged. CONCLUSION: 1. Stable left inferior chest tube with progressive left lower lung zone airspace consolidation and small residual pleural effusion. No pneumothorax. 2. Progressive patchy airspace disease in the right lower lung zone. 3. Mild positive fluid balance. Electronically signed by: Eric Pham MD 09/01/2018 6:56 AM EDT
[2018-09-01 07:23] LABS: Baso # (Auto) 0.1 th/mm3 (0.0-0.2); Eos # (Auto) 0.2 th/mm3 (0.0-0.4); Eos % (Auto) 3.7 % (0.0-4.0); Hematocrit 27.9 % (35.0-46.0); Lymph # (Auto) 0.8 th/mm3 (1.0-4.8); Lymph % (Auto) 14.7 % (9.0-44.0); Mean Corpuscular HGB Conc 32.3 % (32.0-36.0); Mean Corpuscular Hemoglobin 30.3 pg (27.0-34.0); Mean Corpuscular Volume 93.6 fL (80.0-100.0); Mean Platelet Volume 8.6 fL (7.0-11.0); Mono # (Auto) 0.6 th/mm3 (0.0-0.9); Mono % (Auto) 11.4 % (0.0-8.0); Neut # (Auto) 3.6 th/mm3 (1.8-7.7); Neut % (Auto) 68.2 % (16.0-70.0); Platelet Count 266 th/mm3 (150-450); Red Blood Count 2.98 mil/mm3 (4.00-5.30); Red Cell Distribution Width 16.4 % (11.6-17.2); White Blood Count 5.3 th/mm3 (4.0-11.0)
[2018-09-01 07:39] LABS: Alanine Aminotransferase 20 U/L (10-53); Albumin 1.9 g/dL (3.4-5.0); Alkaline Phosphatase 117 U/L (45-117); Anion Gap 11 meq/L (5-15); Aspartate Aminotransferase 19 U/L (15-37); Blood Urea Nitrogen 31 mg/dL (7-18); Calcium 8.3 mg/dL (8.5-10.1); Carbon Dioxide 28.2 meq/L (21.0-32.0); Chloride 98 meq/L (98-107); Glomerular Filtration Rate 18 mL/min (>89); Glucose,Random 174 mg/dL (74-106); Magnesium 2.1 mg/dL (1.5-2.5); Phosphorus 5.3 mg/dL (2.5-4.9); Potassium 3.5 meq/L (3.5-5.1); Sodium 137 meq/L (136-145); Total Protein 5.8 g/dL (6.4-8.2)
[2018-09-01] MEDS: metOLazone 5 MG Tablet PO SCH (08:25)
[2018-09-01] MEDS: Calcium Acetate 667 MG Capsule PO SCH ×3 (08:26→17:18)
[2018-09-01] MEDS: Polyethylene Glycol 3350 17 GM Packet PO SCH ×2 (08:26→20:05)
[2018-09-01] MEDS: Senna/Docusate Sodium 8.6/50 MG Tablet PO SCH ×2 (08:26→20:05)
--- NOTE | 2018-09-01 09:08 | P.PNWCN ---
Wound Care Nurse Consult Description: Consult for Wound Management of heel per Dr Dunne Communicated with: Juan Jain RN Recommendation: Continue heel raiser boots while in bed. Continue Q2H repositioning per protocol. Additional information: Patient not seen for healed pressure injury to left heel. Right heel is boggy, not open. Blue heel raiser boots ordered.
--- NOTE | 2018-09-01 10:15 | P.PNNP ---
Subjective Interval history: Hemodialysis yesterday, tolerated well. Shortness of breath has resolved. Chest tube to left chest wall. <Jessica Clemons - Last Filed: 09/01/18 09:58> Physical Exam Vital signs: Vital Signs 08/31/18 10:00 08/31/18 10:01 08/31/18 10:02 Temperature Pulse Rate 71 70 70 Respiratory Rate 14 13 14 Blood Pressure 215/87 H 207/84 H Pulse Oximetry 100 100 100 08/31/18 10:13 08/31/18 10:16 08/31/18 10:30 Temperature Pulse Rate 68 68 66 Respiratory Rate 14 14 15 Blood Pressure 203/86 H 189/74 H 176/76 H Pulse Oximetry 100 100 100 08/31/18 10:45 08/31/18 11:00 08/31/18 11:15 Temperature Pulse Rate 78 78 79 Respiratory Rate 14 15 15 Blood Pressure 170/72 H 173/74 H 144/70 H Pulse Oximetry 100 100 100 08/31/18 11:30 08/31/18 11:45 08/31/18 12:00 Temperature 98.5 F Pulse Rate 79 79 79 Respiratory Rate 14 14 15 Blood Pressure 150/67 H 154/68 H 155/68 H Pulse Oximetry 100 100 100 08/31/18 12:15 08/31/18 16:00 08/31/18 19:36 Temperature 98.2 F 98.6 F Pulse Rate 79 69 71 Respiratory Rate 14 18 16 Blood Pressure 186/82 H 107/52 L 159/69 H Pulse Oximetry 100 100 97 08/31/18 22:17 09/01/18 00:00 09/01/18 00:16 Temperature 97.6 F Pulse Rate 71 72 Respiratory Rate 14 Blood Pressure 168/70 H Pulse Oximetry 97 96 09/01/18 04:47 09/01/18 05:42 09/01/18 06:27 Temperature 98.3 F Pulse Rate 65 66 Respiratory Rate Blood Pressure 190/74 H 158/67 H Pulse Oximetry 95 09/01/18 08:00 Temperature 97.4 F L Pulse Rate 62 Respiratory Rate 16 Blood Pressure 156/65 H Pulse Oximetry 97 Intake & Output 08/31/18 09/01/18 09/01/18 18:59 06:59 18:59 Intake Total 50 / 50 1043 / 1043 Output Total 3000 / 3000 30 / 30 Balance -2950 / -2950 1013 / 1013 Weight 75.3 kg Intake: IV 50 / 50 615 / 615 D10W Inj 1,000 ML @ 42 mls/hr 0 / 0 IV.CONT .[id number] [facility] Rx#: [id number] Zosyn 2.25 GM Premix 50 ML @ 50 / 50 100 / 100 100 mls/hr IV.SIG Q8H [facility] Rx#: [id number] Vancomycin Inj 1,500 MG In NS 515 / 515 Inj 500 ML @ 250 mls/hr IV.SIG ONCE ONE Rx#:[id number] Oral 428 / 428 Output: Hemodialysis Amount 3000 / 3000 Chest Tube Drainage #1 Left Upper Pleural Other: Date of Last Bowel Movement 08/30/18 09/01/18 # Bowel Movements 2 Narrative: GENERAL: Alert and oriented SKIN: Warm and dry. HEAD: Normocephalic. EYES: No scleral icterus. No injection or drainage. NECK: Supple, trachea midline. Positive JVD CARDIOVASCULAR: Regular rate and rhythm without murmurs, gallops, or rubs. Right AVG with positive thrill and bruit RESPIRATORY: Breath sounds diminished bilaterally. No accessory muscle use. Chest tube left chest wall. GASTROINTESTINAL: Abdomen soft, non-tender, nondistended. MUSCULOSKELETAL: No cyanosis, moderate dependent edema. BACK: Nontender without obvious deformity. No CVA tenderness. - Urinary Catheter Management Indwelling Urethral Catheter Cath placed during this visit: no <Jessica Clemons - Last Filed: 09/01/18 09:58> - Urinary Catheter Management Indwelling Urethral Catheter Cath placed during this visit: no <Des Toro - Last Filed: 09/09/18 11:32> Assessment and Plan - Assessment (1) ESRD (end stage renal disease) Code(s): N18.6 - End stage renal disease Status: Acute Plan: ESRD on hemodialysis on Wednesday, Wednesday and Wednesday. Last hemodialysis on Wednesday AVG right upper arm Plan Avoid IVF administration and gadolinium. Renal, high protein diet Continue PhosLo Continue epogen with dialysis Continue Bumex and metolazone Hemodialysis yesterday with removal of 3 liters of fluid Hemodialysis planned for tomorrow (2) Severe sepsis Code(s): A41.9 - Sepsis, unspecified organism; R65.20 - Severe sepsis without septic shock Status: Acute Plan: Cultures pending thus far negative, on antibiotics, renal dose as appropriate (3) Pleural effusion Code(s): J90 - Pleural effusion, not elsewhere classified Status: Acute Plan: Chest tube left chest wall, plan for possible removal today (4) Diabetes Code(s): E11.9 - Type 2 diabetes mellitus without complications Status: Acute Qualifiers: Diabetes mellitus emt intermediate insulin use: with emt intermediate use Plan: Maintain blood sugars 140 mg/dl to 180 ml/dl while hospitalized. (5) Hypertension Code(s): I10 - Essential (primary) hypertension Status: Acute Plan: Blood pressure has improved. Will monitor. <Jessica Clemons - Last Filed: 09/01/18 09:58> - Assessment (1) ESRD (end stage renal disease) Code(s): N18.6 - End stage renal disease Status: Acute Plan: Patient seen and examined, agree with above. HD was done yesterday. Told to restrict fluid intake. (2) Severe sepsis Code(s): A41.9 - Sepsis, unspecified organism; R65.20 - Severe sepsis without septic shock Status: Acute (3) Pleural effusion Code(s): J90 - Pleural effusion, not elsewhere classified Status: Acute (4) Diabetes Code(s): E11.9 - Type 2 diabetes mellitus without complications Status: Acute Qualifiers: Diabetes mellitus emt intermediate insulin use: with assisted use (5) Hypertension Code(s): I10 - Essential (primary) hypertension Status: Acute <Des Toro - Last Filed: 09/09/18 11:32>
--- NOTE | 2018-09-01 13:32 | P.PN ---
Subjective Interval history: awake and alert, very interactive "feels much much better" she did work with physical therapy today- - did some weightbearing "I got my bikini legs back" wants to go home with home health- had [place] [facility] Physical Exam Vital signs: Vital Signs 08/31/18 16:00 08/31/18 19:36 08/31/18 22:17 Temperature 98.2 F 98.6 F Pulse Rate 69 71 Respiratory Rate 18 16 Blood Pressure 107/52 L 159/69 H Pulse Oximetry 100 97 97 09/01/18 00:00 09/01/18 00:16 09/01/18 04:47 Temperature 97.6 F 98.3 F Pulse Rate 71 72 65 Respiratory Rate 14 Blood Pressure 168/70 H 190/74 H Pulse Oximetry 96 95 09/01/18 05:42 09/01/18 06:27 09/01/18 08:00 Temperature 97.4 F L Pulse Rate 66 62 Respiratory Rate 16 Blood Pressure 158/67 H 156/65 H Pulse Oximetry 97 09/01/18 12:00 Temperature 98.2 F Pulse Rate 76 Respiratory Rate 16 Blood Pressure 109/70 Pulse Oximetry 93 L Intake & Output 08/31/18 09/01/18 09/01/18 18:59 06:59 18:59 Intake Total 50 / 50 1043 / 1043 50 / 50 Output Total 3000 / 3000 30 / 30 Balance -2950 / -2950 1013 / 1013 50 / 50 Weight 75.3 kg Intake: IV 50 / 50 615 / 615 50 / 50 D10W Inj 1,000 ML @ 42 mls/hr 0 / 0 IV.CONT .[id number] [facility] Rx#: [id number] Zosyn 2.25 GM Premix 50 ML @ 50 / 50 100 / 100 50 / 50 100 mls/hr IV.SIG Q8H [facility] Rx#: [id number] Vancomycin Inj 1,500 MG In NS 515 / 515 Inj 500 ML @ 250 mls/hr IV.SIG ONCE ONE Rx#:[id number] Oral 428 / 428 Output: Hemodialysis Amount 3000 / 3000 Chest Tube Drainage 30 / 30 #1 Left Upper Pleural 30 / 30 Other: Date of Last Bowel Movement 08/30/18 09/01/18 # Bowel Movements 2 Narrative: GENERAL: Alert and oriented, not in distress SKIN: Warm and dry. HEAD: Normocephalic. EYES: No scleral icterus. No injection or drainage. NECK: Supple, trachea midline. Positive JVD CARDIOVASCULAR: Regular rate and rhythm Right AVG with positive thrill and bruit RESPIRATORY: Breath sounds diminished bilaterally. No accessory muscle use. Chest tube left chest wall. GASTROINTESTINAL: Abdomen soft, non-tender, nondistended. MUSCULOSKELETAL: No cyanosis, no edema BACK: Nontender without obvious deformity. No CVA tenderness. - Urinary Catheter Management Indwelling Urethral Catheter Cath placed during this visit: no Results - Labs CBC & Chem 7: 09/01/18 06:03 09/01/18 06:03 Laboratory Results - last 24 hr 08/31/18 08/31/18 08/31/18 18:03 19:34 23:26 WBC RBC Hgb Hct MCV MCH MCHC RDW Plt Count MPV Prelim Diff (Auto) Neut % (Auto) Lymph % (Auto) [place] % (Auto) Eos % (Auto) Baso % (Auto) Neut # (Auto) Lymph # (Auto) [place] # (Auto) Eos # (Auto) Baso # (Auto) WBC Differential Diff Scan Differential Comment Sodium Potassium Chloride Carbon Dioxide Anion Gap BUN Creatinine Estimated GFR POC Glucose 147 H 151 H 203 H Random Glucose Calcium Phosphorus Magnesium Total Bilirubin AST ALT Alkaline Phosphatase B-Natriuretic Peptide Total Protein Albumin 09/01/18 09/01/18 09/01/18 04:43 06:03 06:03 WBC 5.3 RBC 2.98 L Hgb 9.0 L Hct 27.9 L MCV 93.6 MCH 30.3 MCHC 32.3 RDW 16.4 Plt Count 266 MPV 8.6 Prelim Diff (Auto) Slide review pending Neut % (Auto) 68.2 Lymph % (Auto) 14.7 [place] % (Auto) 11.4 H Eos % (Auto) 3.7 Baso % (Auto) 2.0 Neut # (Auto) 3.6 Lymph # (Auto) 0.8 L [place] # (Auto) 0.6 Eos # (Auto) 0.2 Baso # (Auto) 0.1 WBC Differential . Diff Scan Auto diff confirmed Differential Comment . Sodium 137 Potassium 3.5 D Chloride 98 Carbon Dioxide 28.2 Anion Gap 11 BUN 31 H Creatinine 2.66 H Estimated GFR 18 L POC Glucose 190 H Random Glucose 174 H D Calcium 8.3 L Phosphorus 5.3 H D Magnesium 2.1 Total Bilirubin 0.3 AST 19 ALT 20 Alkaline Phosphatase 117 B-Natriuretic Peptide Total Protein 5.8 L Albumin 1.9 L 09/01/18 09/01/18 06:03 11:31 WBC RBC Hgb Hct MCV MCH MCHC RDW Plt Count MPV Prelim Diff (Auto) Neut % (Auto) Lymph % (Auto) [place] % (Auto) Eos % (Auto) Baso % (Auto) Neut # (Auto) Lymph # (Auto) [place] # (Auto) Eos # (Auto) Baso # (Auto) WBC Differential Diff Scan Differential Comment Sodium Potassium Chloride Carbon Dioxide Anion Gap BUN Creatinine Estimated GFR POC Glucose 254 H Random Glucose Calcium Phosphorus Magnesium Total Bilirubin AST ALT Alkaline Phosphatase B-Natriuretic Peptide 1066 H Total Protein Albumin Microbiology 08/30/18 18:45 Fluid - Pleural fluid Gram Stain - Final 08/30/18 18:45 Fluid - Pleural fluid Body Fluid Culture - Preliminary No growth in 24 hours 08/30/18 12:00 Blood - Peripheral Aerobic Blood Culture - Preliminary No growth in 2 days 08/30/18 12:00 Blood - Peripheral Anaerobic Blood Culture - Preliminary No growth in 2 days 08/30/18 11:50 Blood - Peripheral Aerobic Blood Culture - Preliminary No growth in 2 days 08/30/18 11:50 Blood - Peripheral Anaerobic Blood Culture - Preliminary No growth in 2 days - Imaging Impressions Chest X-Ray 09/01/18 05:00 CONCLUSION: 1. Stable left inferior chest tube with progressive left lower lung zone airspace consolidation and small residual pleural effusion. No pneumothorax. 2. Progressive patchy airspace disease in the right lower lung zone. 3. Mild positive fluid balance. Assessment and Plan - Plan 67yF with acute metabolic encephalopathy, hypothermia, hypoglycemia. high concern for sepsis. now clinically improving. stable to transfer out of ICU. Plan by systems: Neurologic: Acute metabolic encephalopathy- resolved - TFTs normal. - CT head 08/30 negative for acute disease - ammonia wnl. - BUN normal, uremia unlikely - avoid long-acting sedatives - restart home gabapentin 100mg po qHS Respiratory: Large left pleural effusion - nc o2 as tolerated - oob with assist - nebs - aggressive pulmonary toilet - s/p left chest tube:- D/w Dr. Dunne- ff- plan for chest tube removal today Cardiovascular: Elevated troponin Type II NSTEMI, secondary to demand ischemia- improving. Sinus bradycardia- resolved Acute congestive heart failure exacerbation, diastolic type - unlikely to be acute coronary syndrome - will not heparinize - trops downtrending. - TFTs normal. - forced diuresis Renal: End-stage renal disease - nephrology consult - HD per nephrology -- Strict I/Os - needs ongoing HD. FEN/GI: Acute intravascular volume overload Hypervolemic hypernatremia Constipation- resolved - renal diet - swallow evaluation - replace electrolytes prn - daily bmp, mg, phos - forced diuresis - aggressive bowel regimen: successful BM 08/30. Heme/ID: Possible Sepsis, present on admission - blood cultures - pleural fluid culture NGTD. - vancomycin with pharmacy dosing - zosyn - would have low threshold to de-escalate abx therapy if negative cultures - send procalcitonin Endocrine: Hypoglycemia- resolved Hypothermia- resolved - SSI - master ramirez - TFTs wnl. - d/c d10w. - random cortisol 20. not c/w adrenal insufficiency. Prophylaxis: GI Prophylaxis no GI prophylaxis indicated DVT Prophylaxis -- SCDs SQH Lines: PIV CM consult- home [facility] PT/OT consult
--- NOTE | 2018-09-01 16:45 | P.PN ---
Subjective Interval history: evaluated ms. Snow chest tube: minimal output over last 24h. pulled chest tube at bedside. CXR ordered for today and in the AM. if stable radiographic appearance of left pleural effusion, will sign off management of chest tube and left pleural effusion. remainder of the medical problems per Dr. Gunn. Physical Exam Vital signs: Vital Signs 08/31/18 19:36 08/31/18 22:17 09/01/18 00:00 Temperature 37.0 C Pulse Rate 71 71 Respiratory Rate 16 Blood Pressure 159/69 H Pulse Oximetry 97 97 09/01/18 00:16 09/01/18 04:47 09/01/18 05:42 Temperature 36.4 C 36.8 C Pulse Rate 72 65 66 Respiratory Rate 14 Blood Pressure 168/70 H 190/74 H Pulse Oximetry 96 95 09/01/18 06:27 09/01/18 08:00 09/01/18 12:00 Temperature 36.3 C L 36.8 C Pulse Rate 62 76 Respiratory Rate 16 16 Blood Pressure 158/67 H 156/65 H 109/70 Pulse Oximetry 97 93 L Intake & Output 08/31/18 09/01/18 09/01/18 18:59 06:59 18:59 Intake Total 50 / 50 1043 / 1043 50 / 50 Output Total 3000 / 3000 30 / 30 Balance -2950 / -2950 1013 / 1013 50 / 50 Weight 75.3 kg Intake: IV 50 / 50 615 / 615 50 / 50 D10W Inj 1,000 ML @ 42 mls/hr 0 / 0 IV.CONT .[id number] [facility] Rx#: [id number] Zosyn 2.25 GM Premix 50 ML @ 50 / 50 100 / 100 50 / 50 100 mls/hr IV.SIG Q8H [facility] Rx#: [id number] Vancomycin Inj 1,500 MG In NS 515 / 515 Inj 500 ML @ 250 mls/hr IV.SIG ONCE ONE Rx#:[id number] Oral 428 / 428 Output: Hemodialysis Amount 3000 / 3000 Chest Tube Drainage / 30 #1 Left Upper Pleural Other: Date of Last Bowel Movement 08/30/18 09/01/18 # Bowel Movements 2 - Urinary Catheter Management Indwelling Urethral Catheter Cath placed during this visit: no Results - Labs CBC & Chem 7: 09/01/18 06:03 09/01/18 06:03 Laboratory Results - last 24 hr 08/31/18 08/31/18 08/31/18 18:03 19:34 23:26 WBC RBC Hgb Hct MCV MCH MCHC RDW Plt Count MPV Prelim Diff (Auto) Neut % (Auto) Lymph % (Auto) [place] % (Auto) Eos % (Auto) Baso % (Auto) Neut # (Auto) Lymph # (Auto) [place] # (Auto) Eos # (Auto) Baso # (Auto) WBC Differential Diff Scan Differential Comment Sodium Potassium Chloride Carbon Dioxide Anion Gap BUN Creatinine Estimated GFR POC Glucose 147 H 151 H 203 H Random Glucose Calcium Phosphorus Magnesium Total Bilirubin AST ALT Alkaline Phosphatase B-Natriuretic Peptide Total Protein Albumin 09/01/18 09/01/18 09/01/18 04:43 06:03 06:03 WBC 5.3 RBC 2.98 L Hgb 9.0 L Hct 27.9 L MCV 93.6 MCH 30.3 MCHC 32.3 RDW 16.4 Plt Count 266 MPV 8.6 Prelim Diff (Auto) Slide review pending Neut % (Auto) 68.2 Lymph % (Auto) 14.7 [place] % (Auto) 11.4 H Eos % (Auto) 3.7 Baso % (Auto) 2.0 Neut # (Auto) 3.6 Lymph # (Auto) 0.8 L [place] # (Auto) 0.6 Eos # (Auto) 0.2 Baso # (Auto) 0.1 WBC Differential . Diff Scan Auto diff confirmed Differential Comment . Sodium 137 Potassium 3.5 D Chloride 98 Carbon Dioxide 28.2 Anion Gap 11 BUN 31 H Creatinine 2.66 H Estimated GFR 18 L POC Glucose 190 H Random Glucose 174 H D Calcium 8.3 L Phosphorus 5.3 H D Magnesium 2.1 Total Bilirubin 0.3 AST 19 ALT 20 Alkaline Phosphatase 117 B-Natriuretic Peptide Total Protein 5.8 L Albumin 1.9 L 09/01/18 09/01/18 06:03 11:31 WBC RBC Hgb Hct MCV MCH MCHC RDW Plt Count MPV Prelim Diff (Auto) Neut % (Auto) Lymph % (Auto) [place] % (Auto) Eos % (Auto) Baso % (Auto) Neut # (Auto) Lymph # (Auto) [place] # (Auto) Eos # (Auto) Baso # (Auto) WBC Differential Diff Scan Differential Comment Sodium Potassium Chloride Carbon Dioxide Anion Gap BUN Creatinine Estimated GFR POC Glucose 254 H Random Glucose Calcium Phosphorus Magnesium Total Bilirubin AST ALT Alkaline Phosphatase B-Natriuretic Peptide 1066 H Total Protein Albumin Microbiology 08/30/18 18:45 Fluid - Pleural fluid Gram Stain - Final 08/30/18 18:45 Fluid - Pleural fluid Body Fluid Culture - Preliminary No growth in 24 hours 08/30/18 12:00 Blood - Peripheral Aerobic Blood Culture - Preliminary No growth in 2 days 08/30/18 12:00 Blood - Peripheral Anaerobic Blood Culture - Preliminary No growth in 2 days 08/30/18 11:50 Blood - Peripheral Aerobic Blood Culture - Preliminary No growth in 2 days 08/30/18 11:50 Blood - Peripheral Anaerobic Blood Culture - Preliminary No growth in 2 days - Imaging Impressions Chest X-Ray 09/01/18 05:00 CONCLUSION: 1. Stable left inferior chest tube with progressive left lower lung zone airspace consolidation and small residual pleural effusion. No pneumothorax. 2. Progressive patchy airspace disease in the right lower lung zone. 3. Mild positive fluid balance.
--- NOTE | 2018-09-01 17:11 | XR ---
EXAM DATE: 09/01/2018 12:00 AM EDT AGE/SEX: 67 years / Female INDICATIONS: Pleural effusion, left chest tube recently removed. CLINICAL DATA: This is the patient's subsequent encounter. Patient reports that signs and symptoms h ave been present for 1 week and indicates a pain score of 0/10. MEDICAL/SURGICAL HISTORY: Chronic obstructive pulmonary disease. None. COMPARISON: [facility] [place], CHEST 1V SINGLE AP, 09/01/2018. . FINDINGS: A single AP view of the chest demonstrates bibasilar airspace disease. Small to moderate left pleural effusion. Heart enlarged. No pneumothorax The cardiomediastinal contours are unremarkable. Osseous structures are intact. Left-sided chest tube removed. CONCLUSION: 1. Bibasilar airspace disease. 2. Small to moderate left pleural effusion. 3. No pneumothorax. Electronically signed by: Je Fletcher MD 09/01/2018 5:10 PM EDT
[2018-09-01] MEDS: Gabapentin 100 MG Capsule PO SCH (20:05)
[2018-09-02] MEDS: Chlorhexidine Gluconate 2% 1 Pack (2 Cloths) TOPICAL SCH (03:43)
[2018-09-02] MEDS: Morphine Sulfate Inj 2 MG/ML Vial IV.PUSH PRN ×3 (03:43→20:33)
[2018-09-02] MEDS: Piperacil/Tazo 2.25 GM Premix 50 ML IV.SIG SCH ×3 (03:43→20:32)
[2018-09-02] MEDS: Heparin - SQ 10,000 UNITS/ML Vial SQ SCH ×3 (05:42→23:55)
[2018-09-02] MEDS: Insulin NovoLIN Regular Correctional Sugar Inj SQ SCH ×3 (05:43→19:02)
--- NOTE | 2018-09-02 07:57 | XR ---
EXAM DATE: 09/02/2018 5:00 AM EDT AGE/SEX: 67 years / Female INDICATIONS: Short of breath, evaluate pleural effusion CLINICAL DATA: This is the patient's subsequent encounter. Patient reports that signs and symptoms h ave been present for 1 week and indicates a pain score of 0/10. MEDICAL/SURGICAL HISTORY: Chronic obstructive pulmonary disease. . left chest tube and removal COMPARISON: [facility], CHEST 1V SINGLE AP, 09/01/2018. . FINDINGS: Increasing consolidation and fluid in the left base. Persistent interstitial edema. Minimal parental changes right base. Heart remains minimally enlarged. CONCLUSION: Deterioration with increasing parenchymal changes left base and interstitial edema. Pleural effusion has increased slightly on the left. Electronically signed by: Meek Trimble MD 09/02/2018 7:56 AM EDT
[2018-09-02 08:23] LABS: Baso # (Auto) 0.1 th/mm3 (0.0-0.2); Eos # (Auto) 0.4 th/mm3 (0.0-0.4); Eos % (Auto) 5.4 % (0.0-4.0); Hematocrit 30.2 % (35.0-46.0); Hemoglobin 9.9 gm/dL (11.6-15.3); Lymph % (Auto) 14.2 % (9.0-44.0); Mean Corpuscular HGB Conc 32.7 % (32.0-36.0); Mean Corpuscular Hemoglobin 30.3 pg (27.0-34.0); Mean Corpuscular Volume 92.5 fL (80.0-100.0); Mean Platelet Volume 8.4 fL (7.0-11.0); Mono # (Auto) 0.9 th/mm3 (0.0-0.9); Mono % (Auto) 12.3 % (0.0-8.0); Neut # (Auto) 4.7 th/mm3 (1.8-7.7); Neut % (Auto) 67.1 % (16.0-70.0); Platelet Count 284 th/mm3 (150-450); Red Blood Count 3.26 mil/mm3 (4.00-5.30); Red Cell Distribution Width 16.2 % (11.6-17.2); White Blood Count 6.9 th/mm3 (4.0-11.0)
[2018-09-02 08:25] LABS: Alanine Aminotransferase 18 U/L (10-53); Albumin 1.9 g/dL (3.4-5.0); Alkaline Phosphatase 124 U/L (45-117); Anion Gap 11 meq/L (5-15); Aspartate Aminotransferase 15 U/L (15-37); Blood Urea Nitrogen 37 mg/dL (7-18); Calcium 8.8 mg/dL (8.5-10.1); Carbon Dioxide 26.7 meq/L (21.0-32.0); Chloride 98 meq/L (98-107); Glomerular Filtration Rate 13 mL/min (>89); Glucose,Random 212 mg/dL (74-106); Magnesium 2.1 mg/dL (1.5-2.5); Potassium 4.4 meq/L (3.5-5.1); Sodium 136 meq/L (136-145); Total Protein 6.4 g/dL (6.4-8.2); Vancomycin,Random 18.2 Comment
--- NOTE | 2018-09-02 10:06 | P.PNNP ---
Subjective Interval history: Seen during hemodialysis tolerating well. Denies any shortness of breath, chest pain, nausea, or vomiting. Chest tube has been removed. <Jessica Clemons - Last Filed: 09/02/18 09:58> Physical Exam Vital signs: Vital Signs 09/01/18 12:00 09/01/18 16:00 09/01/18 19:10 Temperature 98.2 F 98.4 F Pulse Rate 76 62 Respiratory Rate 16 18 18 Blood Pressure 109/70 157/60 H Pulse Oximetry 93 L 95 09/01/18 20:00 09/02/18 00:00 09/02/18 04:00 Temperature 98.0 F 98.5 F 97.9 F Pulse Rate 62 61 60 Respiratory Rate 18 18 18 Blood Pressure 144/63 H 162/71 H 162/67 H Pulse Oximetry 97 96 97 09/02/18 08:00 09/02/18 08:50 Temperature 97.8 F Pulse Rate 62 Respiratory Rate 15 Blood Pressure 152/91 H Pulse Oximetry 98 96 Intake & Output 09/01/18 09/02/18 09/02/18 18:59 06:59 18:59 Intake Total 50 / 50 200 / 200 Output Total 600 / 600 Balance 50 / 50 -400 / -400 Intake: IV 50 / 50 100 / 100 Zosyn 2.25 GM Premix 50 ML @ 50 / 50 100 / 100 100 mls/hr IV.SIG Q8H [facility] Rx#: [id number] Oral 100 / 100 Output: Urine 600 / 600 Narrative: GENERAL: Alert and oriented, not in distress SKIN: Warm and dry. HEAD: Normocephalic. EYES: No scleral icterus. No injection or drainage. NECK: Supple, trachea midline. Negative JVD CARDIOVASCULAR: Regular rate and rhythm Right AVG with positive thrill and bruit RESPIRATORY: Breath sounds diminished bilaterally. No accessory muscle use. GASTROINTESTINAL: Abdomen soft, non-tender, nondistended. MUSCULOSKELETAL: No cyanosis, no edema BACK: Nontender without obvious deformity. No CVA tenderness. - Urinary Catheter Management Indwelling Urethral Catheter Cath placed during this visit: no <Jessica Clemons - Last Filed: 09/02/18 09:58> - Urinary Catheter Management Indwelling Urethral Catheter Cath placed during this visit: no <Des Toro - Last Filed: 09/09/18 11:33> Assessment and Plan - Assessment (1) ESRD (end stage renal disease) Code(s): N18.6 - End stage renal disease Status: Acute Plan: ESRD on hemodialysis on Wednesday, Wednesday and Wednesday. Last hemodialysis on Wednesday AVG right upper arm Plan Avoid IVF administration and gadolinium. Renal, high protein diet, Glucerna supplementation added, Fluid restriction Continue PhosLo, Bumex and metolazone. Continue epogen with dialysis Hemodialysis today, 3 K bath, will remove fluid as tolerated. (2) Severe sepsis Code(s): A41.9 - Sepsis, unspecified organism; R65.20 - Severe sepsis without septic shock Status: Acute Plan: Cultures pending thus far negative, on antibiotics, renal dose as appropriate (3) Pleural effusion Code(s): J90 - Pleural effusion, not elsewhere classified Status: Acute Plan: Monitoring. Chest tube removed. 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 (5) Hypertension Code(s): I10 - Essential (primary) hypertension Status: Acute Plan: Blood pressure has improved. Will monitor. <Jessica Clemons - Last Filed: 09/02/18 09:58> - Assessment (1) ESRD (end stage renal disease) Code(s): N18.6 - End stage renal disease Status: Acute Plan: Patient seen and examined, agree with above. HD done and 3 liter removal, tolerated well. BP is stable. (2) Severe sepsis Code(s): A41.9 - Sepsis, unspecified organism; R65.20 - Severe sepsis without septic shock Status: Acute (3) Pleural effusion Code(s): J90 - Pleural effusion, not elsewhere classified Status: Acute (4) Diabetes Code(s): E11.9 - Type 2 diabetes mellitus without complications Status: Acute Qualifiers: Diabetes mellitus mcfp insulin use: with mcfp use (5) Hypertension Code(s): I10 - Essential (primary) hypertension Status: Acute <Des Toro - Last Filed: 09/09/18 11:33>
--- NOTE | 2018-09-02 11:44 | P.PN ---
Subjective Interval history: in hemodialysis seen after Hemodailaysis- doing well 2 L out no complains of chest pain or shortness of breth asking wehn she can go home CT was removed 09/01 Physical Exam Vital signs: Vital Signs 09/01/18 12:00 09/01/18 16:00 09/01/18 19:10 Temperature 98.2 F 98.4 F Pulse Rate 76 62 Respiratory Rate 16 18 18 Blood Pressure 109/70 157/60 H Pulse Oximetry 93 L 95 09/01/18 20:00 09/02/18 00:00 09/02/18 04:00 Temperature 98.0 F 98.5 F 97.9 F Pulse Rate 62 61 60 Respiratory Rate 18 18 18 Blood Pressure 144/63 H 162/71 H 162/67 H Pulse Oximetry 97 96 97 09/02/18 08:00 09/02/18 08:50 Temperature 97.8 F Pulse Rate 62 Respiratory Rate 15 Blood Pressure 152/91 H Pulse Oximetry 98 96 Intake & Output 09/01/18 09/02/18 09/02/18 18:59 06:59 18:59 Intake Total 50 / 50 200 / 200 Output Total 600 / 600 Balance 50 / 50 -400 / -400 Intake: IV 50 / 50 100 / 100 Zosyn 2.25 GM Premix 50 ML @ 50 / 50 100 / 100 100 mls/hr IV.SIG Q8H [facility] Rx#: [id number] Oral 100 / 100 Output: Urine 600 / 600 - Urinary Catheter Management Indwelling Urethral Catheter Cath placed during this visit: no Results - Labs CBC & Chem 7: 09/02/18 07:26 09/02/18 07:26 Laboratory Results - last 24 hr 09/01/18 09/01/18 09/02/18 16:47 22:46 05:42 WBC RBC Hgb Hct MCV MCH MCHC RDW Plt Count MPV Neut % (Auto) Lymph % (Auto) [place] % (Auto) Eos % (Auto) Baso % (Auto) Neut # (Auto) Lymph # (Auto) [place] # (Auto) Eos # (Auto) Baso # (Auto) WBC Differential Differential Comment Sodium Potassium Chloride Carbon Dioxide Anion Gap BUN Creatinine Estimated GFR POC Glucose 303 H 258 H 207 H Random Glucose Calcium Phosphorus Magnesium Total Bilirubin AST ALT Alkaline Phosphatase B-Natriuretic Peptide Total Protein Albumin Random Vancomycin 10/04/1509/02/18 09/02/18 07:26 07:26 07:26 WBC 6.9 RBC 3.26 L Hgb 9.9 L Hct 30.2 L MCV 92.5 MCH 30.3 MCHC 32.7 RDW 16.2 Plt Count 284 MPV 8.4 Neut % (Auto) 67.1 Lymph % (Auto) 14.2 [place] % (Auto) 12.3 H Eos % (Auto) 5.4 H Baso % (Auto) 1.0 Neut # (Auto) 4.7 Lymph # (Auto) 1.0 [place] # (Auto) 0.9 Eos # (Auto) 0.4 Baso # (Auto) 0.1 WBC Differential . Differential Comment Auto diff final Sodium 136 Potassium 4.4 D Chloride 98 Carbon Dioxide 26.7 Anion Gap 11 BUN 37 H Creatinine 3.51 H Estimated GFR 13 L POC Glucose Random Glucose 212 H Calcium 8.8 Phosphorus 6.0 H Magnesium 2.1 Total Bilirubin 0.2 AST 15 ALT 18 Alkaline Phosphatase 124 H B-Natriuretic Peptide 1335 H Total Protein 6.4 D Albumin 1.9 L Random Vancomycin 18.2 Microbiology 08/30/18 12:00 Blood - Peripheral Aerobic Blood Culture - Preliminary No growth in 3 days 08/30/18 12:00 Blood - Peripheral Anaerobic Blood Culture - Preliminary No growth in 3 days 08/30/18 11:50 Blood - Peripheral Aerobic Blood Culture - Preliminary No growth in 3 days 08/30/18 11:50 Blood - Peripheral Anaerobic Blood Culture - Preliminary No growth in 3 days 08/30/18 18:45 Fluid - Pleural fluid Gram Stain - Final 08/30/18 18:45 Fluid - Pleural fluid Body Fluid Culture - Preliminary No growth in 48 hours - Imaging Impressions Chest X-Ray 09/01/18 00:00 CONCLUSION: 1. Bibasilar airspace disease. 2. Small to moderate left pleural effusion. 3. No pneumothorax. Chest X-Ray 09/02/18 05:00 CONCLUSION: Deterioration with increasing parenchymal changes left base and interstitial edema. Pleural effusion has increased slightly on the left. Assessment and Plan - Plan 67yF with acute metabolic encephalopathy, hypothermia, hypoglycemia. high concern for sepsis. now clinically improving. stable to transfer out of ICU. Plan by systems: Neurologic: Acute metabolic encephalopathy- resolved - TFTs normal. - CT head 08/30 negative for acute disease - ammonia wnl. - BUN normal, uremia unlikely - avoid long-acting sedatives - restart home gabapentin 100mg po qHS Respiratory: Large left pleural effusion S/P CT removal 10.4 Per patient she is 02 dependent- has home 02 - nc o2 as tolerated - oob with assist - nebs - aggressive pulmonary toilet - s/p left chest tube:- D/w Dr. Dunne- ff- plan for chest tube removal today Cardiovascular: Elevated troponin Type II NSTEMI, secondary to demand ischemia- improving. Sinus bradycardia- resolved Acute congestive heart failure exacerbation, diastolic type - unlikely to be acute coronary syndrome - will not heparinize - trops downtrending. - TFTs normal. - forced diuresis Hypertension- - start Procardia 60 mg CL daily Renal: End-stage renal disease - nephrology ff - HD per nephrology- M-- FEN/GI: Acute intravascular volume overload- Improved with HD Hypervolemic hypernatremia Constipation- resolved - renal diet - swallow evaluation - replace electrolytes prn - daily bmp, mg, phos - forced diuresis - aggressive bowel regimen: successful BM 08/30. - change to po bumex 1 mg bid Heme/ID: Possible Sepsis, present on admission - blood cultures - pleural fluid culture NGTD. - vancomycin with pharmacy dosing - zosyn - would have low threshold to de-escalate abx therapy if negative cultures - send procalcitonin Endocrine: Hypoglycemia- resolved Hypothermia- resolved - SSI - master ramirez - TFTs wnl. - d/c d10w. - random cortisol 20. not c/w adrenal insufficiency. Prophylaxis: GI Prophylaxis no GI prophylaxis indicated DVT Prophylaxis -- SCDs SQ Lines: PIV CM consult- home [facility] PT/OT consult
[2018-09-02] MEDS: Senna/Docusate Sodium 8.6/50 MG Tablet PO SCH ×2 (11:58→20:33)
[2018-09-02] MEDS: Polyethylene Glycol 3350 17 GM Packet PO SCH ×2 (11:58→20:33)
[2018-09-02] MEDS: metOLazone 5 MG Tablet PO SCH (11:59)
[2018-09-02] MEDS: Calcium Acetate 667 MG Capsule PO SCH ×3 (11:59→19:02)
[2018-09-02] MEDS: Gabapentin 100 MG Capsule PO SCH (20:33)
[2018-09-03] MEDS: Insulin NovoLIN Regular Correctional Sugar Inj SQ SCH ×4 (00:30→17:28)
[2018-09-03] MEDS: Piperacil/Tazo 2.25 GM Premix 50 ML IV.SIG SCH ×3 (03:38→20:10)
[2018-09-03] MEDS: Morphine Sulfate Inj 2 MG/ML Vial IV.PUSH PRN ×3 (03:38→22:13)
[2018-09-03] MEDS: Chlorhexidine Gluconate 2% 1 Pack (2 Cloths) TOPICAL SCH (03:47)
[2018-09-03] MEDS: Heparin - SQ 10,000 UNITS/ML Vial SQ SCH ×3 (06:00→22:10)
[2018-09-03 09:03] LABS: Baso # (Auto) 0.1 th/mm3 (0.0-0.2); Baso % (Auto) 1.2 % (0.0-2.0); Eos # (Auto) 0.4 th/mm3 (0.0-0.4); Eos % (Auto) 5.3 % (0.0-4.0); Hematocrit 29.5 % (35.0-46.0); Hemoglobin 9.6 gm/dL (11.6-15.3); Lymph # (Auto) 1.4 th/mm3 (1.0-4.8); Lymph % (Auto) 19.3 % (9.0-44.0); Mean Corpuscular HGB Conc 32.5 % (32.0-36.0); Mean Corpuscular Hemoglobin 30.5 pg (27.0-34.0); Mean Corpuscular Volume 93.7 fL (80.0-100.0); Mean Platelet Volume 8.2 fL (7.0-11.0); Neut # (Auto) 4.2 th/mm3 (1.8-7.7); Neut % (Auto) 60.2 % (16.0-70.0); Platelet Count 238 th/mm3 (150-450); Red Blood Count 3.15 mil/mm3 (4.00-5.30)
[2018-09-03 09:30] LABS: Alanine Aminotransferase 13 U/L (10-53); Albumin 1.9 g/dL (3.4-5.0); Alkaline Phosphatase 108 U/L (45-117); Anion Gap 11 meq/L (5-15); Aspartate Aminotransferase 13 U/L (15-37); Blood Urea Nitrogen 27 mg/dL (7-18); Calcium 8.5 mg/dL (8.5-10.1); Carbon Dioxide 29.2 meq/L (21.0-32.0); Chloride 99 meq/L (98-107); Glomerular Filtration Rate 18 mL/min (>89); Glucose,Random 139 mg/dL (74-106); Magnesium 2.1 mg/dL (1.5-2.5); Phosphorus 4.5 mg/dL (2.5-4.9); Potassium 3.6 meq/L (3.5-5.1); Sodium 139 meq/L (136-145)
[2018-09-03] MEDS: metOLazone 5 MG Tablet PO SCH (10:54)
[2018-09-03] MEDS: Calcium Acetate 667 MG Capsule PO SCH ×3 (10:54→17:25)
[2018-09-03] MEDS: Senna/Docusate Sodium 8.6/50 MG Tablet PO SCH ×2 (10:54→22:09)
[2018-09-03] MEDS: Polyethylene Glycol 3350 17 GM Packet PO SCH ×2 (10:55→22:09)
[2018-09-03] MEDS: Insulin Detemir Inj 1,000 UNIT/10 ML Vial SQ SCH (10:56)
--- NOTE | 2018-09-03 12:14 | P.PN ---
Subjective Interval history: awke and alert no complains fair po intake no nausea or vomtiing Physical Exam Vital signs: Vital Signs 09/02/18 13:35 09/02/18 16:00 09/02/18 17:37 Temperature 97.3 F L 98.2 F Pulse Rate 77 84 Respiratory Rate 16 16 Blood Pressure 185/74 H 193/81 H Pulse Oximetry 95 95 95 09/02/18 20:00 09/02/18 23:28 09/02/18 23:52 Temperature 98.8 F 98.9 F Pulse Rate 73 68 70 Respiratory Rate 18 18 19 Blood Pressure 155/67 H 176/74 H 178/77 H Pulse Oximetry 97 97 95 09/03/18 01:00 09/03/18 01:58 09/03/18 03:41 Temperature Pulse Rate 68 Respiratory Rate 19 Blood Pressure 153/97 H Pulse Oximetry 09/03/18 04:00 09/03/18 08:00 Temperature 98.8 F 97.5 F L Pulse Rate 62 56 L Respiratory Rate 18 16 Blood Pressure 144/75 H 119/58 L Pulse Oximetry 95 93 L Intake & Output 09/02/18 09/03/18 09/03/18 18:59 06:59 18:59 Intake Total 50 / 50 211 / 211 Output Total 2500 / 2500 0 / 0 Balance -2450 / -2450 211 / 211 Intake: IV 50 / 50 100 / 100 Zosyn 2.25 GM Premix 50 ML @ 50 / 50 100 / 100 100 mls/hr IV.SIG Q8H [facility] Rx#: [id number] Oral 111 / 111 Output: Urine 0 / 0 Hemodialysis Amount 2500 / 2500 Other: # Voids 1 0 Date of Last Bowel Movement 08/31/18 09/03/18 Narrative: GENERAL: Alert and oriented, not in distress SKIN: Warm and dry. HEAD: Normocephalic. EYES: No scleral icterus. No injection or drainage. NECK: Supple, trachea midline. Negative JVD CARDIOVASCULAR: Regular rate and rhythm Right AVG with positive thrill and bruit RESPIRATORY: Breath sounds diminished bilaterally. No accessory muscle use. GASTROINTESTINAL: Abdomen soft, non-tender, nondistended. MUSCULOSKELETAL: No cyanosis, no edema BACK: Nontender without obvious deformity. No CVA tenderness. - Urinary Catheter Management Indwelling Urethral Catheter Cath placed during this visit: no Results - Labs CBC & Chem 7: 09/03/18 08:44 09/03/18 08:44 Laboratory Results - last 24 hr 08/30/18 09/02/18 09/02/18 13:30 12:20 17:52 WBC RBC Hgb Hct MCV MCH MCHC RDW Plt Count MPV Neut % (Auto) Lymph % (Auto) [place] % (Auto) Eos % (Auto) Baso % (Auto) Neut # (Auto) Lymph # (Auto) [place] # (Auto) Eos # (Auto) Baso # (Auto) WBC Differential Differential Comment Sodium Potassium Chloride Carbon Dioxide Anion Gap BUN Creatinine Estimated GFR POC Glucose 187 H 414 H Random Glucose Calcium Phosphorus Magnesium Total Bilirubin AST ALT Alkaline Phosphatase Total Protein Albumin U Cannabinoids Confirm 09/02/18 09/03/18 09/03/18 17:53 00:21 05:37 WBC RBC Hgb Hct MCV MCH MCHC RDW Plt Count MPV Neut % (Auto) Lymph % (Auto) [place] % (Auto) Eos % (Auto) Baso % (Auto) Neut # (Auto) Lymph # (Auto) [place] # (Auto) Eos # (Auto) Baso # (Auto) WBC Differential Differential Comment Sodium Potassium Chloride Carbon Dioxide Anion Gap BUN Creatinine Estimated GFR POC Glucose 412 H 355 H 272 H Random Glucose Calcium Phosphorus Magnesium Total Bilirubin AST ALT Alkaline Phosphatase Total Protein Albumin U Cannabinoids Confirm 09/03/18 09/03/18 09/03/18 07:54 08:44 08:44 WBC 7.0 RBC 3.15 L Hgb 9.6 L Hct 29.5 L MCV 93.7 MCH 30.5 MCHC 32.5 RDW 16.0 Plt Count 238 MPV 8.2 Neut % (Auto) 60.2 Lymph % (Auto) 19.3 [place] % (Auto) 14.0 H Eos % (Auto) 5.3 H Baso % (Auto) 1.2 Neut # (Auto) 4.2 Lymph # (Auto) 1.4 [place] # (Auto) 1.0 H Eos # (Auto) 0.4 Baso # (Auto) 0.1 WBC Differential . Differential Comment Auto diff final Sodium 139 Potassium 3.6 D Chloride 99 Carbon Dioxide 29.2 Anion Gap 11 BUN 27 H Creatinine 2.62 H Estimated GFR 18 L POC Glucose 157 H Random Glucose 139 H Calcium 8.5 Phosphorus 4.5 D Magnesium 2.1 Total Bilirubin 0.2 AST 13 L ALT 13 Alkaline Phosphatase 108 Total Protein 6.0 L Albumin 1.9 L U Cannabinoids Confirm 09/03/18 11:18 WBC RBC Hgb Hct MCV MCH MCHC RDW Plt Count MPV Neut % (Auto) Lymph % (Auto) [place] % (Auto) Eos % (Auto) Baso % (Auto) Neut # (Auto) Lymph # (Auto) [place] # (Auto) Eos # (Auto) Baso # (Auto) WBC Differential Differential Comment Sodium Potassium Chloride Carbon Dioxide Anion Gap BUN Creatinine Estimated GFR POC Glucose 139 H Random Glucose Calcium Phosphorus Magnesium Total Bilirubin AST ALT Alkaline Phosphatase Total Protein Albumin U Cannabinoids Confirm Microbiology 08/30/18 12:00 Blood - Peripheral Aerobic Blood Culture - Preliminary No growth in 4 days 08/30/18 12:00 Blood - Peripheral Anaerobic Blood Culture - Preliminary No growth in 4 days 08/30/18 11:50 Blood - Peripheral Aerobic Blood Culture - Preliminary No growth in 4 days 08/30/18 11:50 Blood - Peripheral Anaerobic Blood Culture - Preliminary No growth in 4 days 08/30/18 18:45 Fluid - Pleural fluid Gram Stain - Final 08/30/18 18:45 Fluid - Pleural fluid Body Fluid Culture - Final No growth in 72 hours (aerobically and anaerobically ) Assessment and Plan - Plan 67yF with acute metabolic encephalopathy, hypothermia, hypoglycemia. high concern for sepsis. now clinically improving. stable to transfer out of ICU. Plan by systems: Neurologic: Acute metabolic encephalopathy- resolved - TFTs normal. - CT head 08/30 negative for acute disease - ammonia wnl. - BUN normal, uremia unlikely - avoid long-acting sedatives - restart home gabapentin 100mg po qHS Respiratory: Large left pleural effusion S/P CT removal 10.4 Per patient she is 02 dependent- has home 02 - nc o2 as tolerated - oob with assist - nebs - aggressive pulmonary toilet - s/p left chest tube:- D/w Dr. Dunne- CT removed 09/02 Cardiovascular: Elevated troponin Type II NSTEMI, secondary to demand ischemia- improving. Sinus bradycardia- resolved Acute congestive heart failure exacerbation, diastolic type - unlikely to be acute coronary syndrome - will not heparinize - trops downtrending. - TFTs normal. - forced diuresis Hypertension- BP better - started Procardia 60 mg CL daily 09/02 Renal: End-stage renal disease - nephrology ff - HD per nephrology- M-W-F FEN/GI: Acute intravascular volume overload- Improved with HD Hypervolemic hypernatremia Constipation- resolved - renal diet - swallow well - replace electrolytes prn - aggressive bowel regimen: s + BM, fairly good [p - change to po bumex 1 mg bid Heme/ID: Possible Sepsis, present on admission - blood cultures - pleural fluid culture NGTD. - vancomycin with pharmacy dosing - zosyn - would have low threshold to de-escalate abx therapy if negative cultures Endocrine: Hypoglycemia- resolved Hypothermia- resolved - SSI- startd on levemeri- continue and adjust regimen - master ramirez - TFTs wnl. - d/c d10w. - random cortisol 20. not c/w adrenal insufficiency. Prophylaxis: GI Prophylaxis no GI prophylaxis indicated DVT Prophylaxis -- SCDs - Increae activity- has been out of bed - PT daily Lines: PIV CM consult- home [facility] PT/OT consult
--- NOTE | 2018-09-03 12:29 | P.PNNP ---
Subjective Interval history: Patient on hemodialysis done on Wednesday Physical Exam Vital signs: Vital Signs 09/02/18 13:35 09/02/18 16:00 09/02/18 17:37 Temperature 97.3 F L 98.2 F Pulse Rate 77 84 Respiratory Rate 16 16 Blood Pressure 185/74 H 193/81 H Pulse Oximetry 95 95 95 09/02/18 20:00 09/02/18 23:28 09/02/18 23:52 Temperature 98.8 F 98.9 F Pulse Rate 73 68 70 Respiratory Rate 18 18 19 Blood Pressure 155/67 H 176/74 H 178/77 H Pulse Oximetry 97 97 95 09/03/18 01:00 09/03/18 01:58 09/03/18 03:41 Temperature Pulse Rate 68 Respiratory Rate 19 Blood Pressure 153/97 H Pulse Oximetry 09/03/18 04:00 09/03/18 08:00 09/03/18 12:00 Temperature 98.8 F 97.5 F L 97.4 F L Pulse Rate 62 56 L 58 L Respiratory Rate 18 16 18 Blood Pressure 144/75 H 119/58 L 106/51 L Pulse Oximetry 95 93 L 91 L Intake & Output 09/02/18 09/03/18 09/03/18 18:59 06:59 18:59 Intake Total 50 / 50 211 / 211 Output Total 2500 / 2500 0 / 0 Balance -2450 / -2450 211 / 211 Intake: IV 50 / 50 100 / 100 Zosyn 2.25 GM Premix 50 ML @ 50 / 50 100 / 100 100 mls/hr IV.SIG Q8H [facility] Rx#: [id number] Oral 111 / 111 Output: Urine 0 / 0 Hemodialysis Amount 2500 / 2500 Other: # Voids 1 0 Date of Last Bowel Movement 08/31/18 09/03/18 Narrative: GENERAL: Alert and oriented, not in distress SKIN: Warm and dry. HEAD: Normocephalic. EYES: No scleral icterus. No injection or drainage. NECK: Supple, trachea midline. Negative JVD CARDIOVASCULAR: Regular rate and rhythm Right AVG with positive thrill and bruit RESPIRATORY: Breath sounds diminished bilaterally. No accessory muscle use. GASTROINTESTINAL: Abdomen soft, non-tender, nondistended. MUSCULOSKELETAL: No cyanosis, no edema BACK: Nontender without obvious deformity. No CVA tenderness. - Urinary Catheter Management Indwelling Urethral Catheter Cath placed during this visit: no Assessment and Plan - Assessment (1) ESRD (end stage renal disease) Code(s): N18.6 - End stage renal disease Status: Acute Plan: ESRD on hemodialysis on Wednesday, Wednesday and Wednesday. Last hemodialysis on Wednesday AVG right upper arm Plan Avoid IVF administration and gadolinium. Renal, high protein diet, Glucerna supplementation added, Fluid restriction Continue PhosLo, Bumex and metolazone. Continue epogen with dialysis Hemodialysis done yesterday 2.5 L removed. (2) Severe sepsis Code(s): A41.9 - Sepsis, unspecified organism; R65.20 - Severe sepsis without septic shock Status: Acute Plan: Cultures pending thus far negative, on antibiotics, renal dose as appropriate (3) Pleural effusion Code(s): J90 - Pleural effusion, not elsewhere classified Status: Acute Plan: Monitoring. Chest tube removed. (4) Diabetes Code(s): E11.9 - Type 2 diabetes mellitus without complications Status: Acute Qualifiers: Diabetes mellitus halfway insulin use: with supervisor intermediates use Plan: Maintain blood sugars 140 mg/dl to 180 ml/dl while hospitalized. (5) Hypertension Code(s): I10 - Essential (primary) hypertension Status: Acute Plan: Blood pressure has improved. Will monitor.
[2018-09-03] MEDS: Gabapentin 100 MG Capsule PO SCH (22:09)
[2018-09-04] MEDS: Insulin NovoLIN Regular Correctional Sugar Inj SQ SCH ×4 (01:26→17:33)
[2018-09-04] MEDS: Piperacil/Tazo 2.25 GM Premix 50 ML IV.SIG SCH ×3 (03:12→20:51)
[2018-09-04] MEDS: Chlorhexidine Gluconate 2% 1 Pack (2 Cloths) TOPICAL SCH (03:12)
[2018-09-04] MEDS: Morphine Sulfate Inj 2 MG/ML Vial IV.PUSH PRN ×3 (03:12→20:50)
[2018-09-04] MEDS: Heparin - SQ 10,000 UNITS/ML Vial SQ SCH ×3 (06:06→21:00)
[2018-09-04 06:53] LABS: Baso # (Auto) 0.1 th/mm3 (0.0-0.2); Baso % (Auto) 1.3 % (0.0-2.0); Eos # (Auto) 0.3 th/mm3 (0.0-0.4); Eos % (Auto) 4.4 % (0.0-4.0); Hematocrit 29.2 % (35.0-46.0); Hemoglobin 9.8 gm/dL (11.6-15.3); Mean Corpuscular HGB Conc 33.5 % (32.0-36.0); Mean Corpuscular Volume 92.5 fL (80.0-100.0); Mean Platelet Volume 8.3 fL (7.0-11.0); Mono # (Auto) 0.7 th/mm3 (0.0-0.9); Mono % (Auto) 10.2 % (0.0-8.0); Neut # (Auto) 4.4 th/mm3 (1.8-7.7); Neut % (Auto) 69.1 % (16.0-70.0); Platelet Count 253 th/mm3 (150-450); Red Blood Count 3.15 mil/mm3 (4.00-5.30); Red Cell Distribution Width 16.1 % (11.6-17.2); White Blood Count 6.4 th/mm3 (4.0-11.0)
[2018-09-04 07:30] LABS: Alanine Aminotransferase 13 U/L (10-53); Albumin 1.8 g/dL (3.4-5.0); Alkaline Phosphatase 108 U/L (45-117); Anion Gap 12 meq/L (5-15); Aspartate Aminotransferase 9 U/L (15-37); Blood Urea Nitrogen 33 mg/dL (7-18); Calcium 8.1 mg/dL (8.5-10.1); Carbon Dioxide 28.6 meq/L (21.0-32.0); Chloride 96 meq/L (98-107); Glomerular Filtration Rate 13 mL/min (>89); Glucose,Random 278 mg/dL (74-106); Magnesium 2.1 mg/dL (1.5-2.5); Phosphorus 5.1 mg/dL (2.5-4.9); Potassium 4.2 meq/L (3.5-5.1); Sodium 137 meq/L (136-145); Vancomycin,Random 15.2 Comment
[2018-09-04] MEDS: Senna/Docusate Sodium 8.6/50 MG Tablet PO SCH ×2 (08:49→20:52)
[2018-09-04] MEDS: Calcium Acetate 667 MG Capsule PO SCH ×3 (08:50→17:32)
[2018-09-04] MEDS: metOLazone 5 MG Tablet PO SCH (08:51)
[2018-09-04] MEDS: Polyethylene Glycol 3350 17 GM Packet PO SCH ×2 (08:51→20:53)
[2018-09-04] MEDS: Insulin Detemir Inj 1,000 UNIT/10 ML Vial SQ SCH (08:52)
[2018-09-04] MEDS ORDERED: Vancomycin Inj 1,500 MG in Sodium Chlor 0.9% Inj 500 ML IV.SIG ONE (11:00)
--- NOTE | 2018-09-04 13:02 | P.PN ---
Subjective Interval history: no complains no diarrhea no shortness of breath good po Physical Exam Vital signs: Vital Signs 09/03/18 13:10 09/03/18 16:00 09/03/18 16:16 Temperature 98.0 F Pulse Rate 63 59 L Respiratory Rate 16 Blood Pressure 153/69 H Pulse Oximetry 92 L 92 L 09/03/18 20:00 09/03/18 20:15 09/04/18 00:00 Temperature 98.6 F 98.9 F Pulse Rate 64 70 Respiratory Rate 17 16 Blood Pressure 127/60 139/61 Pulse Oximetry 93 L 93 L 94 L 09/04/18 04:00 09/04/18 08:00 09/04/18 12:00 Temperature 97.7 F 97.8 F 97.4 F L Pulse Rate 64 63 76 Respiratory Rate 17 16 14 Blood Pressure 156/67 H 157/69 H 150/67 H Pulse Oximetry 95 95 95 Intake & Output 09/03/18 09/04/18 09/04/18 18:59 06:59 18:59 Intake Total 50 / 50 280 / 280 50 / 50 Output Total 150 / 150 Balance 50 / 50 130 / 130 50 / 50 Weight 75.3 kg Intake: IV 50 / 50 100 / 100 50 / 50 Zosyn 2.25 GM Premix 50 ML @ 50 / 50 100 / 100 50 / 50 100 mls/hr IV.SIG Q8H [facility] Rx#: [id number] Oral 180 / 180 Output: Urine 150 / 150 Other: Date of Last Bowel Movement 09/03/18 09/03/18 09/03/18 - Urinary Catheter Management Indwelling Urethral Catheter Cath placed during this visit: no Results - Labs CBC & Chem 7: 09/05/18 07:13 09/05/18 07:13 Laboratory Results - last 24 hr 09/03/18 09/03/18 09/04/18 16:09 21:41 01:11 WBC RBC Hgb Hct MCV MCH MCHC RDW Plt Count MPV Neut % (Auto) Lymph % (Auto) [place] % (Auto) Eos % (Auto) Baso % (Auto) Neut # (Auto) Lymph # (Auto) [place] # (Auto) Eos # (Auto) Baso # (Auto) WBC Differential Differential Comment Sodium Potassium Chloride Carbon Dioxide Anion Gap BUN Creatinine Estimated GFR POC Glucose 248 H 332 H 345 H Random Glucose Calcium Phosphorus Magnesium Total Bilirubin AST ALT Alkaline Phosphatase Total Protein Albumin Random Vancomycin 09/04/18 09/04/18 09/04/18 06:01 06:09 06:09 WBC 6.4 RBC 3.15 L Hgb 9.8 L Hct 29.2 L MCV 92.5 MCH 31.0 MCHC 33.5 RDW 16.1 Plt Count 253 MPV 8.3 Neut % (Auto) 69.1 Lymph % (Auto) 15.0 [place] % (Auto) 10.2 H Eos % (Auto) 4.4 H Baso % (Auto) 1.3 Neut # (Auto) 4.4 Lymph # (Auto) 1.0 [place] # (Auto) 0.7 Eos # (Auto) 0.3 Baso # (Auto) 0.1 WBC Differential . Differential Comment Auto diff final Sodium 137 Potassium 4.2 Chloride 96 L Carbon Dioxide 28.6 Anion Gap 12 BUN 33 H Creatinine 3.48 H Estimated GFR 13 L POC Glucose 247 H Random Glucose 278 H D Calcium 8.1 L Phosphorus 5.1 H Magnesium 2.1 Total Bilirubin 0.3 AST 9 L ALT 13 Alkaline Phosphatase 108 Total Protein 6.0 L Albumin 1.8 L Random Vancomycin 15.2 09/04/18 09/04/18 07:24 11:53 WBC RBC Hgb Hct MCV MCH MCHC RDW Plt Count MPV Neut % (Auto) Lymph % (Auto) [place] % (Auto) Eos % (Auto) Baso % (Auto) Neut # (Auto) Lymph # (Auto) [place] # (Auto) Eos # (Auto) Baso # (Auto) WBC Differential Differential Comment Sodium Potassium Chloride Carbon Dioxide Anion Gap BUN Creatinine Estimated GFR POC Glucose 254 H 285 H Random Glucose Calcium Phosphorus Magnesium Total Bilirubin AST ALT Alkaline Phosphatase Total Protein Albumin Random Vancomycin Microbiology 08/30/18 12:00 Blood - Peripheral Aerobic Blood Culture - Final No growth in 5 days 08/30/18 12:00 Blood - Peripheral Anaerobic Blood Culture - Final No growth in 5 days 08/30/18 11:50 Blood - Peripheral Aerobic Blood Culture - Final No growth in 5 days 08/30/18 11:50 Blood - Peripheral Anaerobic Blood Culture - Final No growth in 5 days Assessment and Plan - Plan 67yF with acute metabolic encephalopathy, hypothermia, hypoglycemia. high concern for sepsis. now clinically improving. stable to transfer out of ICU. Plan by systems: Neurologic: Acute metabolic encephalopathy- resolved - TFTs normal. - CT head 08/30 negative for acute disease - ammonia wnl. - BUN normal, uremia unlikely - avoid long-acting sedatives - gabapentin 100mg po qHS Respiratory: Large left pleural effusion S/P CT removal 10.4 Per patient she is 02 dependent- has home 02 - nc o2 as tolerated - oob with assist - nebs - aggressive pulmonary toilet - s/p left chest tube:- D/w Dr. Dunne- CT removed 09/02 Cardiovascular: Elevated troponin Type II NSTEMI, secondary to demand ischemia- improving. Sinus bradycardia- resolved Acute congestive heart failure exacerbation, diastolic type - unlikely to be acute coronary syndrome - will not heparinize - trops downtrending. - TFTs normal. - forced diuresis Hypertension- BP better - started Procardia 60 mg CL daily 09/02 Renal: End-stage renal disease - nephrology ff - HD per nephrology- M-W- FEN/GI: Acute intravascular volume overload- Improved with HD Hypervolemic hypernatremia Constipation- resolved - renal diet - swallow well - replace electrolytes prn - aggressive bowel regimen: s + BM, fairly good [p - change to po bumex 1 mg bid Heme/ID: Possible Sepsis, present on admission - blood cultures- negative - pleural fluid culture NGTD. - vancomycin with pharmacy dosing - zosyn Endocrine: Hypoglycemia- resolved Hypothermia- resolved - SSI- startd on levemeri- continue and adjust regimen - master ramirez - TFTs wnl. - d/c d10w. - random cortisol 20. not c/w adrenal insufficiency. Prophylaxis: GI Prophylaxis no GI prophylaxis indicated DVT Prophylaxis -- SCDs - Increae activity- has been out of bed - PT daily Lines: PIV CM consult- home [facility] PT/OT ff
--- NOTE | 2018-09-04 15:09 | P.PNNP ---
Subjective Interval history: At baseline denies complaint Physical Exam Vital signs: Vital Signs 09/03/18 16:00 09/03/18 16:16 09/03/18 20:00 Temperature 98.0 F 98.6 F Pulse Rate 63 59 L 64 Respiratory Rate 16 17 Blood Pressure 153/69 H 127/60 Pulse Oximetry 92 L 93 L 09/03/18 20:15 09/04/18 00:00 09/04/18 04:00 Temperature 98.9 F 97.7 F Pulse Rate 70 64 Respiratory Rate 16 17 Blood Pressure 139/61 156/67 H Pulse Oximetry 93 L 94 L 95 09/04/18 08:00 09/04/18 12:00 Temperature 97.8 F 97.4 F L Pulse Rate 63 76 Respiratory Rate 16 14 Blood Pressure 157/69 H 150/67 H Pulse Oximetry 95 95 Intake & Output 09/03/18 09/04/18 09/04/18 18:59 06:59 18:59 Intake Total 50 / 50 280 / 280 565 / 565 Output Total 150 / 150 Balance 50 / 50 130 / 130 565 / 565 Weight 75.3 kg Intake: IV 50 / 50 100 / 100 565 / 565 Zosyn 2.25 GM Premix 50 ML @ 50 / 50 100 / 100 50 / 50 100 mls/hr IV.SIG Q8H [facility] Rx#: [id number] Vancomycin Inj 1,500 MG In NS 515 / 515 Inj 500 ML @ 250 mls/hr IV.SIG ONCE ONE Rx#:[id number] Oral 180 / 180 Output: Urine 150 / 150 Other: Date of Last Bowel Movement 09/03/18 09/03/18 09/03/18 Narrative: GENERAL: Alert and oriented, not in distress SKIN: Warm and dry. HEAD: Normocephalic. EYES: No scleral icterus. No injection or drainage. NECK: Supple, trachea midline. Negative JVD CARDIOVASCULAR: Regular rate and rhythm Right AVG with positive thrill and bruit RESPIRATORY: Breath sounds diminished bilaterally. No accessory muscle use. GASTROINTESTINAL: Abdomen soft, non-tender, nondistended. MUSCULOSKELETAL: No cyanosis, no edema BACK: Nontender without obvious deformity. No CVA tenderness. - Urinary Catheter Management Indwelling Urethral Catheter Cath placed during this visit: no Assessment and Plan - Assessment (1) ESRD (end stage renal disease) Code(s): N18.6 - End stage renal disease Status: Acute Plan: ESRD on hemodialysis on Wednesday, Wednesday and Wednesday. Last hemodialysis on Wednesday AVG right upper arm Plan Avoid IVF administration and gadolinium. Renal, high protein diet, Glucerna supplementation added, Fluid restriction Continue PhosLo, Bumex and metolazone. Continue epogen with dialysis Hemodialysis done Wednesday 2.[address] Toro to follow-up (2) Severe sepsis Code(s): A41.9 - Sepsis, unspecified organism; R65.20 - Severe sepsis without septic shock Status: Acute Plan: Cultures pending thus far negative, on antibiotics, renal dose as appropriate (3) Pleural effusion Code(s): J90 - Pleural effusion, not elsewhere classified Status: Acute Plan: Monitoring. Chest tube removed. 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 (5) Hypertension Code(s): I10 - Essential (primary) hypertension Status: Acute Plan: Blood pressure has improved. Will monitor.
[2018-09-04] MEDS: Gabapentin 100 MG Capsule PO SCH (20:52)
[2018-09-05] MEDS: Insulin NovoLIN Regular Correctional Sugar Inj SQ SCH ×4 (01:09→17:05)
[2018-09-05] MEDS: Morphine Sulfate Inj 2 MG/ML Vial IV.PUSH PRN ×4 (01:10→20:42)
[2018-09-05] MEDS: Piperacil/Tazo 2.25 GM Premix 50 ML IV.SIG SCH ×3 (05:35→20:42)
[2018-09-05] MEDS: Heparin - SQ 10,000 UNITS/ML Vial SQ SCH ×3 (05:36→21:00)
[2018-09-05 08:19] LABS: Baso # (Auto) 0.1 th/mm3 (0.0-0.2); Baso % (Auto) 0.9 % (0.0-2.0); Eos # (Auto) 0.3 th/mm3 (0.0-0.4); Eos % (Auto) 4.3 % (0.0-4.0); Hematocrit 32.3 % (35.0-46.0); Hemoglobin 10.2 gm/dL (11.6-15.3); Lymph # (Auto) 0.9 th/mm3 (1.0-4.8); Lymph % (Auto) 15.5 % (9.0-44.0); Mean Corpuscular HGB Conc 31.7 % (32.0-36.0); Mean Corpuscular Hemoglobin 29.8 pg (27.0-34.0); Mean Corpuscular Volume 94.1 fL (80.0-100.0); Mean Platelet Volume 8.4 fL (7.0-11.0); Mono # (Auto) 0.7 th/mm3 (0.0-0.9); Neut % (Auto) 68.3 % (16.0-70.0); Platelet Count 252 th/mm3 (150-450); Red Blood Count 3.43 mil/mm3 (4.00-5.30); White Blood Count 5.9 th/mm3 (4.0-11.0)
[2018-09-05 08:37] LABS: Albumin 1.9 g/dL (3.4-5.0); Anion Gap 6 meq/L (5-15); Aspartate Aminotransferase 11 U/L (15-37); Blood Urea Nitrogen 36 mg/dL (7-18); Calcium 8.2 mg/dL (8.5-10.1); Carbon Dioxide 28.6 meq/L (21.0-32.0); Chloride 99 meq/L (98-107); Glomerular Filtration Rate 12 mL/min (>89); Glucose,Random 200 mg/dL (74-106); Magnesium 2.4 mg/dL (1.5-2.5); Potassium 4.2 meq/L (3.5-5.1); Sodium 134 meq/L (136-145)
[2018-09-05 08:40] LABS: Alanine Aminotransferase 12 U/L (10-53); Alkaline Phosphatase 114 U/L (45-117); Phosphorus 5.7 mg/dL (2.5-4.9); Total Protein 6.1 g/dL (6.4-8.2)
[2018-09-05] MEDS: Calcium Acetate 667 MG Capsule PO SCH ×3 (08:46→17:05)
[2018-09-05] MEDS: Insulin Detemir Inj 1,000 UNIT/10 ML Vial SQ SCH (08:46)
--- NOTE | 2018-09-05 09:28 | P.PN ---
Subjective Interval history: seen during HD- doing great good p[o wanting to go home cleared by [facility] Physical Exam Vital signs: Vital Signs 09/04/18 12:00 09/04/18 16:00 09/04/18 16:11 Temperature 97.4 F L 97.6 F Pulse Rate 76 63 Respiratory Rate 14 16 Blood Pressure 150/67 H 148/65 H Pulse Oximetry 95 95 95 09/04/18 20:00 09/04/18 20:02 09/05/18 00:00 Temperature 98.4 F 98.4 F Pulse Rate 67 71 Respiratory Rate 16 18 Blood Pressure 175/74 H 170/72 H Pulse Oximetry 95 96 95 09/05/18 04:00 09/05/18 08:00 Temperature 98.4 F 97.7 F Pulse Rate 68 67 Respiratory Rate 18 18 Blood Pressure 154/70 H 173/76 H Pulse Oximetry 93 L 95 Intake & Output 09/04/18 09/05/18 09/05/18 18:59 06:59 18:59 Intake Total 565 / 565 940 / 940 Balance 565 / 565 940 / 940 Weight 75.4 kg Intake: IV 565 / 565 100 / 100 Zosyn 2.25 GM Premix 50 ML @ 50 / 50 100 / 100 100 mls/hr IV.SIG Q8H [facility] Rx#: [id number] Vancomycin Inj 1,500 MG In NS 515 / 515 Inj 500 ML @ 250 mls/hr IV.SIG ONCE ONE Rx#:[id number] Oral 840 / 840 Other: # Voids 1 Date of Last Bowel Movement 09/04/18 09/04/18 09/04/18 # Bowel Movements 1 3 Narrative: GENERAL: Alert and oriented, not in distress SKIN: Warm and dry. HEAD: Normocephalic. EYES: No scleral icterus. No injection or drainage. NECK: Supple, trachea midline. Negative JVD CARDIOVASCULAR: Regular rate and rhythm Right AVG with positive thrill and bruit RESPIRATORY: Breath sounds diminished bilaterally. No accessory muscle use. GASTROINTESTINAL: Abdomen soft, non-tender, nondistended. MUSCULOSKELETAL: No cyanosis, no edema BACK: Nontender without obvious deformity. No CVA tenderness. - Urinary Catheter Management Indwelling Urethral Catheter Cath placed during this visit: no Results - Labs CBC & Chem 7: 09/05/18 07:13 09/05/18 07:13 Laboratory Results - last 24 hr 09/04/18 09/04/18 09/05/18 11:53 17:20 01:09 WBC RBC Hgb Hct MCV MCH MCHC RDW Plt Count MPV Neut % (Auto) Lymph % (Auto) [place] % (Auto) Eos % (Auto) Baso % (Auto) Neut # (Auto) Lymph # (Auto) [place] # (Auto) Eos # (Auto) Baso # (Auto) WBC Differential Differential Comment Sodium Potassium Chloride Carbon Dioxide Anion Gap BUN Creatinine Estimated GFR POC Glucose 285 H 194 H 330 H Random Glucose Calcium Phosphorus Magnesium Total Bilirubin AST ALT Alkaline Phosphatase Total Protein Albumin 09/05/18 09/05/18 09/05/18 05:43 07:12 07:13 WBC 5.9 RBC 3.43 L Hgb 10.2 L Hct 32.3 L MCV 94.1 MCH 29.8 MCHC 31.7 L RDW 16.0 Plt Count 252 MPV 8.4 Neut % (Auto) 68.3 Lymph % (Auto) 15.5 [place] % (Auto) 11.0 H Eos % (Auto) 4.3 H Baso % (Auto) 0.9 Neut # (Auto) 4.0 Lymph # (Auto) 0.9 L [place] # (Auto) 0.7 Eos # (Auto) 0.3 Baso # (Auto) 0.1 WBC Differential . Differential Comment Auto diff final Sodium Potassium Chloride Carbon Dioxide Anion Gap BUN Creatinine Estimated GFR POC Glucose 177 H 204 H Random Glucose Calcium Phosphorus Magnesium Total Bilirubin AST ALT Alkaline Phosphatase Total Protein Albumin 09/05/18 07:13 WBC RBC Hgb Hct MCV MCH MCHC RDW Plt Count MPV Neut % (Auto) Lymph % (Auto) [place] % (Auto) Eos % (Auto) Baso % (Auto) Neut # (Auto) Lymph # (Auto) [place] # (Auto) Eos # (Auto) Baso # (Auto) WBC Differential Differential Comment Sodium 134 L Potassium 4.2 Chloride 99 Carbon Dioxide 28.6 Anion Gap 6 BUN 36 H Creatinine 3.85 H Estimated GFR 12 L POC Glucose Random Glucose 200 H Calcium 8.2 L Phosphorus 5.7 H Magnesium 2.4 Total Bilirubin 0.2 AST 11 L ALT 12 Alkaline Phosphatase 114 Total Protein 6.1 L Albumin 1.9 L Microbiology 08/30/18 12:00 Blood - Peripheral Aerobic Blood Culture - Final No growth in 5 days 08/30/18 12:00 Blood - Peripheral Anaerobic Blood Culture - Final No growth in 5 days 08/30/18 11:50 Blood - Peripheral Aerobic Blood Culture - Final No growth in 5 days 08/30/18 11:50 Blood - Peripheral Anaerobic Blood Culture - Final No growth in 5 days Assessment and Plan - Plan 67yF with acute metabolic encephalopathy, hypothermia, hypoglycemia. high concern for sepsis. now clinically improving. stable to transfer out of ICU. Plan by systems: Neurologic: Acute metabolic encephalopathy- resolved - TFTs normal. - CT head 08/30 negative for acute disease - ammonia wnl. - BUN normal, uremia unlikely - avoid long-acting sedatives - gabapentin 100mg po qHS Respiratory: Large left pleural effusion S/P CT removal 10.4 Per patient she is 02 dependent- has home 02 - nc o2 as tolerated - oob with assist - nebs - aggressive pulmonary toilet - s/p left chest tube:- D/w Dr. Dunne- CT removed 09/02 Cardiovascular: Elevated troponin Type II NSTEMI, secondary to demand ischemia- improving. Sinus bradycardia- resolved Acute congestive heart failure exacerbation, diastolic type - unlikely to be acute coronary syndrome - will not heparinize - trops downtrending. - TFTs normal. - forced diuresis Hypertension- BP better - started Procardia 60 mg CL daily 09/02 Renal: End-stage renal disease - nephrology ff - HD per nephrology- M-W-F FEN/GI: Acute intravascular volume overload- Improved with HD Hypervolemic hypernatremia Constipation- resolved - renal diet - swallow well - replace electrolytes prn - aggressive bowel regimen: s + BM, fairly good [p - change to po bumex 1 mg bid Heme/ID: Possible Sepsis, present on admission - blood cultures- negative - pleural fluid culture NGTD. - vancomycin with pharmacy dosing - zosyn - DC antibiotics Endocrine: Hypoglycemia- resolved Hypothermia- resolved - SSI- startd on levemeri- continue and adjust regimen - master ramirez - TFTs wnl. - d/c d10w. - random cortisol 20. not c/w adrenal insufficiency. Prophylaxis: GI Prophylaxis no GI prophylaxis indicated DVT Prophylaxis -- SCDs - Increae activity- has been out of bed - PT daily Lines: PIV CM consult- home [facility] PT/OT ff [facility]
--- NOTE | 2018-09-05 10:53 | P.PNNP ---
Subjective Interval history: Seen during hemodialysis tolerating well. Hoping to be discharged home today. Denies any shortness of breath. <Jessica Clemons - Last Filed: 09/05/18 10:49> Physical Exam Vital signs: Vital Signs 09/04/18 12:00 09/04/18 16:00 09/04/18 16:11 Temperature 97.4 F L 97.6 F Pulse Rate 76 63 Respiratory Rate 14 16 Blood Pressure 150/67 H 148/65 H Pulse Oximetry 95 95 95 09/04/18 20:00 09/04/18 20:02 09/05/18 00:00 Temperature 98.4 F 98.4 F Pulse Rate 67 71 Respiratory Rate 16 18 Blood Pressure 175/74 H 170/72 H Pulse Oximetry 95 96 95 09/05/18 04:00 09/05/18 08:00 Temperature 98.4 F 97.7 F Pulse Rate 68 66 Respiratory Rate 18 18 Blood Pressure 154/70 H 173/76 H Pulse Oximetry 93 L 95 Intake & Output 09/04/18 09/05/18 09/05/18 18:59 06:59 18:59 Intake Total 565 / 565 940 / 940 Balance 565 / 565 940 / 940 Weight 75.4 kg Intake: IV 565 / 565 100 / 100 Zosyn 2.25 GM Premix 50 ML @ 50 / 50 100 / 100 100 mls/hr IV.SIG Q8H [facility] Rx#: [id number] Vancomycin Inj 1,500 MG In NS 515 / 515 Inj 500 ML @ 250 mls/hr IV.SIG ONCE ONE Rx#:[id number] Oral 840 / 840 Other: # Voids 1 Date of Last Bowel Movement 09/04/18 09/04/18 09/04/18 # Bowel Movements 1 3 Narrative: GENERAL: Alert and oriented, not in distress SKIN: Warm and dry. HEAD: Normocephalic. EYES: No scleral icterus. No injection or drainage. NECK: Supple, trachea midline. Negative JVD CARDIOVASCULAR: Regular rate and rhythm Right AVG with positive thrill and bruit RESPIRATORY: Breath sounds diminished bilaterally. No accessory muscle use. GASTROINTESTINAL: Abdomen soft, non-tender, nondistended. MUSCULOSKELETAL: No cyanosis, no edema BACK: Nontender without obvious deformity. No CVA tenderness. - Urinary Catheter Management Indwelling Urethral Catheter Cath placed during this visit: no <Jessica Clemons - Last Filed: 09/05/18 10:49> - Urinary Catheter Management Indwelling Urethral Catheter Cath placed during this visit: no <Des Toro - Last Filed: 09/13/18 17:04> Assessment and Plan - Assessment (1) ESRD (end stage renal disease) Code(s): N18.6 - End stage renal disease Status: Acute Plan: ESRD on hemodialysis on Wednesday, Wednesday and Wednesday. AVG right upper arm Plan Avoid IVF administration and gadolinium. Continue Renal, high protein diet and Fluid restriction On PhosLo, Bumex and metolazone. Reports decreased urinary output. 150ml/24 hours will discontinue metolazone. Continue epogen with dialysis Seen during hemodialysis 3 K bath, will remove fluid as tolerated. (2) Severe sepsis Code(s): A41.9 - Sepsis, unspecified organism; R65.20 - Severe sepsis without septic shock Status: Acute Plan: Cultures thus far negative, on antibiotics, renal dose as appropriate (3) Pleural effusion Code(s): J90 - Pleural effusion, not elsewhere classified Status: Acute Plan: Monitoring. Chest tube removed. (4) Diabetes Code(s): E11.9 - Type 2 diabetes mellitus without complications Status: Acute Qualifiers: Diabetes mellitus mcfp insulin use: with termite inspector use Plan: Maintain blood sugars 140 mg/dl to 180 ml/dl while hospitalized. (5) Hypertension Code(s): I10 - Essential (primary) hypertension Status: Acute Plan: Blood pressure labile at times, Will monitor. <Jessica Clemons - Last Filed: 09/05/18 10:49> - Assessment (1) ESRD (end stage renal disease) Code(s): N18.6 - End stage renal disease Status: Acute Plan: Patient seen and examined, agree with above. HD done, will remove fluid as tolerated. (2) Severe sepsis Code(s): A41.9 - Sepsis, unspecified organism; R65.20 - Severe sepsis without septic shock Status: Acute (3) Pleural effusion Code(s): J90 - Pleural effusion, not elsewhere classified Status: Acute (4) Diabetes Code(s): E11.9 - Type 2 diabetes mellitus without complications Status: Acute Qualifiers: Diabetes mellitus mcfp insulin use: with mcfp use (5) Hypertension Code(s): I10 - Essential (primary) hypertension Status: Acute <Des Toro - Last Filed: 09/13/18 17:04>
[2018-09-05] MEDS: Senna/Docusate Sodium 8.6/50 MG Tablet PO SCH ×2 (12:52→20:43)
[2018-09-05] MEDS: Polyethylene Glycol 3350 17 GM Packet PO SCH ×2 (12:52→20:43)
[2018-09-05] MEDS: metOLazone 5 MG Tablet PO SCH (13:04)
--- NOTE | 2018-09-05 14:43 | P.DCO ---
- Physical Therapy Order: Evaluate and treat, Improve ambulation, Strength and gait training - Occupational Therapy Order: Improve ADL - Speech Therapy Order: To improve: Cognitive skills - Home Health Nursing Order: Medical education, Signs/symptoms of disease process, Nursing assessment with vital signs - Home Health Aide Order: To assist in: jacket preparer and meal prep - Brim Shaper Order: To evaluate: Living conditions/environment, Support services - Certification I have seen patient Brinda Maynard on 09/05/18. My clinical findings support the need for the requested home health care services because: Limited mobility due to disease progression, Deconditioned with increased weakness, Need for psychosocial assistance, Infection with risk of complications I certify that my clinical findings support that this patient is homebound because: Need for psychosocial assistance
[2018-09-05] MEDS: Gabapentin 100 MG Capsule PO SCH (20:42)
[2018-09-06] MEDS: Morphine Sulfate Inj 2 MG/ML Vial IV.PUSH PRN ×3 (00:43→10:35)
[2018-09-06] MEDS: Insulin NovoLIN Regular Correctional Sugar Inj SQ SCH ×3 (01:24→12:22)
[2018-09-06] MEDS: Piperacil/Tazo 2.25 GM Premix 50 ML IV.SIG SCH ×2 (05:20→12:19)
[2018-09-06] MEDS: Heparin - SQ 10,000 UNITS/ML Vial SQ SCH ×2 (05:22→13:01)
[2018-09-06 07:13] LABS: Baso # (Auto) 0.1 th/mm3 (0.0-0.2); Baso % (Auto) 1.1 % (0.0-2.0); Eos # (Auto) 0.2 th/mm3 (0.0-0.4); Hematocrit 31.9 % (35.0-46.0); Hemoglobin 10.2 gm/dL (11.6-15.3); Lymph % (Auto) 19.3 % (9.0-44.0); Mean Corpuscular Volume 93.8 fL (80.0-100.0); Mean Platelet Volume 8.2 fL (7.0-11.0); Mono # (Auto) 0.5 th/mm3 (0.0-0.9); Mono % (Auto) 10.7 % (0.0-8.0); Neut # (Auto) 3.3 th/mm3 (1.8-7.7); Neut % (Auto) 64.9 % (16.0-70.0); Platelet Count 247 th/mm3 (150-450); Red Cell Distribution Width 16.2 % (11.6-17.2); White Blood Count 5.1 th/mm3 (4.0-11.0)
[2018-09-06 08:11] LABS: Alanine Aminotransferase 10 U/L (10-53); Albumin 1.7 g/dL (3.4-5.0); Alkaline Phosphatase 108 U/L (45-117); Anion Gap 10 meq/L (5-15); Aspartate Aminotransferase 10 U/L (15-37); Blood Urea Nitrogen 23 mg/dL (7-18); Calcium 8.2 mg/dL (8.5-10.1); Carbon Dioxide 30.2 meq/L (21.0-32.0); Chloride 97 meq/L (98-107); Glomerular Filtration Rate 16 mL/min (>89); Glucose,Random 241 mg/dL (74-106); Magnesium 2.1 mg/dL (1.5-2.5); Potassium 3.8 meq/L (3.5-5.1); Sodium 137 meq/L (136-145); Total Protein 5.9 g/dL (6.4-8.2); Vancomycin,Random 20.4 Comment
[2018-09-06] MEDS: Senna/Docusate Sodium 8.6/50 MG Tablet PO SCH (08:15)
[2018-09-06] MEDS: Calcium Acetate 667 MG Capsule PO SCH ×2 (08:15→12:19)
[2018-09-06] MEDS: Insulin Detemir Inj 1,000 UNIT/10 ML Vial SQ SCH (08:15)
[2018-09-06] MEDS: Polyethylene Glycol 3350 17 GM Packet PO SCH (08:15)
--- NOTE | 2018-09-06 09:54 | P.PNNP ---
Subjective Interval history: Feeling well. Denies any shortness of breath. Hemodialysis yesterday tolerated well. Plans for discharge today. <Jessica Clemons - Last Filed: 09/06/18 09:51> Physical Exam Vital signs: Vital Signs 09/05/18 12:05 09/05/18 12:31 09/05/18 13:42 Temperature Pulse Rate 66 Respiratory Rate 16 Blood Pressure Pulse Oximetry 97 09/05/18 16:00 09/05/18 20:00 09/05/18 21:05 Temperature 98.0 F 99.4 F Pulse Rate 80 75 Respiratory Rate 18 18 Blood Pressure 165/70 H 131/62 Pulse Oximetry 95 95 97 09/06/18 00:00 09/06/18 04:00 09/06/18 08:00 Temperature 97.8 F 98.1 F 98.1 F Pulse Rate 75 68 62 Respiratory Rate 18 18 18 Blood Pressure 192/79 H 165/73 H 156/68 H Pulse Oximetry 95 95 95 Intake & Output 09/05/18 09/06/18 09/06/18 18:59 06:59 18:59 Intake Total 50 / 50 100 / 100 Output Total 3000 / 3000 Balance -2950 / -2950 99 / 99 Intake: IV 50 / 50 100 / 100 Zosyn 2.25 GM Premix 50 ML @ 50 / 50 100 / 100 100 mls/hr IV.SIG Q8H [facility] Rx#: [id number] Output: Urine/Stool Mix Hemodialysis Amount 3000 / 3000 Other: # Voids 1 1 Date of Last Bowel Movement 09/05/18 09/04/18 # Bowel Movements 1 Narrative: GENERAL: Alert and oriented, not in distress SKIN: Warm and dry. HEAD: Normocephalic. EYES: No scleral icterus. No injection or drainage. NECK: Supple, trachea midline. Negative JVD CARDIOVASCULAR: Regular rate and rhythm Right AVG with positive thrill and bruit RESPIRATORY: Breath sounds diminished bilaterally. No accessory muscle use. GASTROINTESTINAL: Abdomen soft, non-tender, nondistended. MUSCULOSKELETAL: No cyanosis, no edema BACK: Nontender without obvious deformity. No CVA tenderness. - Urinary Catheter Management Indwelling Urethral Catheter Cath placed during this visit: no <Jessica Clemons - Last Filed: 09/06/18 09:51> - Urinary Catheter Management Indwelling Urethral Catheter Cath placed during this visit: no <Des Toro - Last Filed: 09/13/18 17:09> Assessment and Plan - Assessment (1) ESRD (end stage renal disease) Code(s): N18.6 - End stage renal disease Status: Acute Plan: ESRD on hemodialysis on Wednesday, Wednesday and Wednesday. AVG right upper arm Plan Avoid IVF administration and gadolinium. Continue Renal, high protein diet and Fluid restriction On PhosLo and bumex Continue epogen with dialysis Hemodialysis yesterday tolerated well with removal of 3 liters of fluid Discharge planned for today. (2) Severe sepsis Code(s): A41.9 - Sepsis, unspecified organism; R65.20 - Severe sepsis without septic shock Status: Acute Plan: Cultures negative (3) Pleural effusion Code(s): J90 - Pleural effusion, not elsewhere classified Status: Acute Plan: Monitoring. Chest tube removed. Shortness of breath resolved. (4) Diabetes Code(s): E11.9 - Type 2 diabetes mellitus without complications Status: Acute Qualifiers: Diabetes mellitus maintenance team leader insulin use: with correction use Plan: Maintain blood sugars 140 mg/dl to 180 ml/dl while hospitalized. (5) Hypertension Code(s): I10 - Essential (primary) hypertension Status: Acute Plan: Blood pressure improved, Will monitor. <Jessica Clemons - Last Filed: 09/06/18 09:51> - Assessment (1) ESRD (end stage renal disease) Code(s): N18.6 - End stage renal disease Status: Acute Plan: Patient seen and examined, agree with above. HD done yesterday, possible D/C today. (2) Severe sepsis Code(s): A41.9 - Sepsis, unspecified organism; R65.20 - Severe sepsis without septic shock Status: Acute (3) Pleural effusion Code(s): J90 - Pleural effusion, not elsewhere classified Status: Acute (4) Diabetes Code(s): E11.9 - Type 2 diabetes mellitus without complications Status: Acute Qualifiers: Diabetes mellitus correction insulin use: with correction use (5) Hypertension Code(s): I10 - Essential (primary) hypertension Status: Acute <Des Toro - Last Filed: 09/13/18 17:09>
--- NOTE | 2018-09-06 10:11 | P.PN ---
Subjective Interval history: feels great, looking forward to going home no complains Physical Exam Vital signs: Vital Signs 09/05/18 12:05 09/05/18 12:31 09/05/18 13:42 Temperature Pulse Rate 66 Respiratory Rate 16 Blood Pressure Pulse Oximetry 97 09/05/18 16:00 09/05/18 20:00 09/05/18 21:05 Temperature 98.0 F 99.4 F Pulse Rate 80 75 Respiratory Rate 18 18 Blood Pressure 165/70 H 131/62 Pulse Oximetry 95 95 97 09/06/18 00:00 09/06/18 04:00 09/06/18 08:00 Temperature 97.8 F 98.1 F 98.1 F Pulse Rate 75 68 62 Respiratory Rate 18 18 16 Blood Pressure 192/79 H 165/73 H 156/68 H Pulse Oximetry 95 95 95 Intake & Output 09/05/18 09/06/18 09/06/18 18:59 06:59 18:59 Intake Total 50 / 50 100 / 100 Output Total 3000 / 3000 Balance -2950 / -2950 99 / 99 Intake: IV 50 / 50 100 / 100 Zosyn 2.25 GM Premix 50 ML @ 50 / 50 100 / 100 100 mls/hr IV.SIG Q8H [facility] Rx#: [id number] Output: Urine/Stool Mix Hemodialysis Amount 3000 / 3000 Other: # Voids 1 1 Date of Last Bowel Movement 09/05/18 09/04/18 # Bowel Movements 1 Narrative: GENERAL: Alert and oriented, not in distress SKIN: Warm and dry. HEAD: Normocephalic. EYES: No scleral icterus. No injection or drainage. NECK: Supple, trachea midline. Negative JVD CARDIOVASCULAR: Regular rate and rhythm Right AVG with positive thrill and bruit RESPIRATORY: Breath sounds diminished bilaterally. No accessory muscle use. GASTROINTESTINAL: Abdomen soft, non-tender, nondistended. MUSCULOSKELETAL: No cyanosis, no edema BACK: Nontender without obvious deformity. No CVA tenderness. - Urinary Catheter Management Indwelling Urethral Catheter Cath placed during this visit: no Results - Labs CBC & Chem 7: 09/06/18 06:32 09/06/18 06:32 Laboratory Results - last 24 hr 09/05/18 09/05/18 09/06/18 11:45 16:06 01:13 WBC RBC Hgb Hct MCV MCH MCHC RDW Plt Count MPV Neut % (Auto) Lymph % (Auto) [place] % (Auto) Eos % (Auto) Baso % (Auto) Neut # (Auto) Lymph # (Auto) [place] # (Auto) Eos # (Auto) Baso # (Auto) WBC Differential Differential Comment Sodium Potassium Chloride Carbon Dioxide Anion Gap BUN Creatinine Estimated GFR POC Glucose 187 H 351 H 294 H Random Glucose Calcium Phosphorus Magnesium Total Bilirubin AST ALT Alkaline Phosphatase Total Protein Albumin Random Vancomycin 09/06/18 09/06/18 09/06/18 05:18 06:32 06:32 WBC 5.1 RBC 3.40 L Hgb 10.2 L Hct 31.9 L MCV 93.8 MCH 30.0 MCHC 32.0 RDW 16.2 Plt Count 247 MPV 8.2 Neut % (Auto) 64.9 Lymph % (Auto) 19.3 [place] % (Auto) 10.7 H Eos % (Auto) 4.0 Baso % (Auto) 1.1 Neut # (Auto) 3.3 Lymph # (Auto) 1.0 [place] # (Auto) 0.5 Eos # (Auto) 0.2 Baso # (Auto) 0.1 WBC Differential . Differential Comment Auto diff final Sodium 137 Potassium 3.8 Chloride 97 L Carbon Dioxide 30.2 Anion Gap 10 BUN 23 H Creatinine 2.86 H Estimated GFR 16 L POC Glucose 255 H Random Glucose 241 H Calcium 8.2 L Phosphorus 4.0 D Magnesium 2.1 Total Bilirubin 0.2 AST 10 L ALT 10 Alkaline Phosphatase 108 Total Protein 5.9 L Albumin 1.7 L Random Vancomycin 20.4 09/06/18 07:15 WBC RBC Hgb Hct MCV MCH MCHC RDW Plt Count MPV Neut % (Auto) Lymph % (Auto) [place] % (Auto) Eos % (Auto) Baso % (Auto) Neut # (Auto) Lymph # (Auto) [place] # (Auto) Eos # (Auto) Baso # (Auto) WBC Differential Differential Comment Sodium Potassium Chloride Carbon Dioxide Anion Gap BUN Creatinine Estimated GFR POC Glucose 216 H Random Glucose Calcium Phosphorus Magnesium Total Bilirubin AST ALT Alkaline Phosphatase Total Protein Albumin Random Vancomycin Assessment and Plan - Plan 67yF with acute metabolic encephalopathy, hypothermia, hypoglycemia. high concern for sepsis. now clinically improving. stable to transfer out of ICU. Plan by systems: Neurologic: Acute metabolic encephalopathy- resolved - TFTs normal. - CT head 08/30 negative for acute disease - ammonia wnl. - BUN normal, uremia unlikely - avoid long-acting sedatives - gabapentin 100mg po qHS Respiratory: Large left pleural effusion S/P CT removal 10.4 Per patient she is 02 dependent- has home 02 - nc o2 as tolerated - oob with assist - nebs - aggressive pulmonary toilet - s/p left chest tube:- D/w Dr. Dunne- CT removed 09/02 Cardiovascular: Elevated troponin Type II NSTEMI, secondary to demand ischemia- improving. Sinus bradycardia- resolved Acute congestive heart failure exacerbation, diastolic type - unlikely to be acute coronary syndrome - will not heparinize - trops downtrending. - TFTs normal. - forced diuresis - restart home meds- ASA. Prasurgel on DC Hypertension- BP better - started Procardia 60 mg CL daily 09/02 Renal: End-stage renal disease - nephrology ff - HD per nephrology- -- FEN/GI: Acute intravascular volume overload- Improved with HD Hypervolemic hypernatremia Constipation- resolved - renal diet - swallow well - replace electrolytes prn - aggressive bowel regimen: s + BM, fairly good [p - change to po bumex 1 mg bid Heme/ID: Possible Sepsis, present on admission - blood cultures- negative - pleural fluid culture NGTD. - DC antibiotics 09/04 Endocrine: Hypoglycemia- resolved Hypothermia- resolved - SSI- startd on levemeri- continue and adjust regimen - master ramirez - TFTs wnl. - d/c d10w. - random cortisol 20. not c/w adrenal insufficiency. Prophylaxis: GI Prophylaxis no GI prophylaxis indicated DVT Prophylaxis -- SCDs - Increae activity- has been out of bed - PT daily Lines: PIV CM consult- home [facility] PT/OT ff DC today with home [facility] states HD- --
[2018-09-06] MEDS ORDERED: Carvedilol 6.25 MG Tablet PO SCH (10:30)
[2018-09-06 12:13] VITALS: BP 152/67; PULSE 65; RESP 18; TEMP 98; O2SAT 95
--- NOTE | 2018-09-06 19:31 | P.DS ---
Date of admission: 08/30/18 15:00 Primary care physician: UNKNOWN Anticipated date of discharge: 09/06/18 Brief History from admission: This is a 67yF with non-oliguric ESRD on IHD who presents with a few weeks of fatigue which has progressed to acute decrease in mental status today during dialysis. this also comes with an associated hypoglycemia which has been refractory to 3 d50w pushes. she denies chest pain, sob, fever, chills, abdominal pain, n/v/c/d. no other associated symptoms other than fatigue. ROS completely unremarkable. in the ER, she was found to be hypothermic and persistently hypoglycemic. CT abd/pelvis demonstrates anasarca and large left pleural effusion. trop slightly elevated. sodium low at 130. wbc normal. DS: Medications - Discharge Medications Prescriptions: bumetanide 1 mg PO BID 30 Days #60 tab calcium acetate 667 mg PO TID 30 Days #90 cap nifedipine 60 mg PO DAILY 30 Days #30 tab DS: Summary Hospital Course: 67yF with acute metabolic encephalopathy, hypothermia, hypoglycemia. high concern for sepsis. now clinically improving. stable to transfer out of ICU. Plan by systems: Neurologic: Acute metabolic encephalopathy- resolved - TFTs normal. - CT head 08/30 negative for acute disease - ammonia wnl. - BUN normal, uremia unlikely - avoid long-acting sedatives - gabapentin 100mg po qHS Respiratory: Large left pleural effusion S/P CT removal 10.4 Per patient she is 02 dependent- has home 02 - nc o2 as tolerated - oob with assist - nebs - aggressive pulmonary toilet - s/p left chest tube:- D/w Dr. Dunne- CT removed 09/02 Cardiovascular: Elevated troponin Type II NSTEMI, secondary to demand ischemia- improving. Sinus bradycardia- resolved Acute congestive heart failure exacerbation, diastolic type - unlikely to be acute coronary syndrome - will not heparinize - trops downtrending. - TFTs normal. - forced diuresis - restart home meds- ASA. Prasurgel on DC Hypertension- BP better - started Procardia 60 mg CL daily 09/02 Renal: End-stage renal disease - nephrology ff - HD per nephrology- M-W-F FEN/GI: Acute intravascular volume overload- Improved with HD Hypervolemic hypernatremia Constipation- resolved - renal diet - swallow well - replace electrolytes prn - aggressive bowel regimen: s + BM, fairly good [p - change to po bumex 1 mg bid Heme/ID: Possible Sepsis, present on admission - blood cultures- negative - pleural fluid culture NGTD. - DC antibiotics 09/04 Endocrine: Hypoglycemia- resolved Hypothermia- resolved - SSI- startd on levemeri- continue and adjust regimen - master ramirez - TFTs wnl. - d/c d10w. - random cortisol 20. not c/w adrenal insufficiency. Prophylaxis: GI Prophylaxis no GI prophylaxis indicated DVT Prophylaxis -- SCDs - Increae activity- has been out of bed - PT daily Lines: PIV CM consult- home [facility] PT/OT ff DC today with [facility] HD- M-W- - Time Spent with Patient Total time spent providing and/or coordinating discharge services: Greater than 30 minutes - Quality: VTE Deep Vein Thrombosis/Pulmonary Embolism Present on Admission: No Exam Vital signs: Vital Signs 09/05/18 20:00 09/05/18 21:05 09/06/18 00:00 Temperature 99.4 F 97.8 F Pulse Rate 75 75 Respiratory Rate 18 18 Blood Pressure 131/62 192/79 H Pulse Oximetry 95 97 95 09/06/18 04:00 09/06/18 08:00 09/06/18 10:13 Temperature 98.1 F 98.1 F Pulse Rate 68 62 Respiratory Rate 18 16 Blood Pressure 165/73 H 156/68 H Pulse Oximetry 95 95 92 L 09/06/18 10:36 09/06/18 12:00 Temperature 98 F Pulse Rate 65 Respiratory Rate 16 18 Blood Pressure 152/67 H Pulse Oximetry 95 Intake & Output 09/06/18 09/06/18 09/07/18 06:59 18:59 06:59 Intake Total 100 / 100 50 / 50 Output Total Balance 99 / 99 50 / 50 Intake: IV 100 / 100 50 / 50 Zosyn 2.25 GM Premix 50 ML @ 100 / 100 50 / 50 100 mls/hr IV.SIG Q8H [facility] Rx#: [id number] Output: Urine/Stool Mix Other: # Voids 1 Date of Last Bowel Movement 09/04/18 Narrative: GENERAL: Alert and oriented, not in distress SKIN: Warm and dry. HEAD: Normocephalic. EYES: No scleral icterus. No injection or drainage. NECK: Supple, trachea midline. Negative JVD CARDIOVASCULAR: Regular rate and rhythm Right AVG with positive thrill and bruit RESPIRATORY: Breath sounds diminished bilaterally. No accessory muscle use. GASTROINTESTINAL: Abdomen soft, non-tender, nondistended. MUSCULOSKELETAL: No cyanosis, no edema BACK: Nontender without obvious deformity. No CVA tenderness. Results Procedures completed during hospitalization: hemodialysis 08/30- pigtail thoracostomy tube placement Labs on day of discharge: Labs from last 24 hours 09/06/18 09/06/18 09/06/18 12:18 07:15 06:32 WBC RBC Hgb Hct MCV MCH MCHC RDW Plt Count MPV Neut % (Auto) Lymph % (Auto) [place] % (Auto) Eos % (Auto) Baso % (Auto) Neut # (Auto) Lymph # (Auto) [place] # (Auto) Eos # (Auto) Baso # (Auto) WBC Differential Differential Comment Sodium 137 Potassium 3.8 Chloride 97 L Carbon Dioxide 30.2 Anion Gap 10 BUN 23 H Creatinine 2.86 H Estimated GFR 16 L POC Glucose 220 H 216 H Random Glucose 241 H Calcium 8.2 L Phosphorus 4.0 D Magnesium 2.1 Total Bilirubin 0.2 AST 10 L ALT 10 Alkaline Phosphatase 108 Total Protein 5.9 L Albumin 1.7 L Random Vancomycin 20.4 09/06/18 09/06/18 09/06/18 06:32 05:18 01:13 WBC 5.1 RBC 3.40 L Hgb 10.2 L Hct 31.9 L MCV 93.8 MCH 30.0 MCHC 32.0 RDW 16.2 Plt Count 247 MPV 8.2 Neut % (Auto) 64.9 Lymph % (Auto) 19.3 [place] % (Auto) 10.7 H Eos % (Auto) 4.0 Baso % (Auto) 1.1 Neut # (Auto) 3.3 Lymph # (Auto) 1.0 [place] # (Auto) 0.5 Eos # (Auto) 0.2 Baso # (Auto) 0.1 WBC Differential . Differential Comment Auto diff final Sodium Potassium Chloride Carbon Dioxide Anion Gap BUN Creatinine Estimated GFR POC Glucose 255 H 294 H Random Glucose Calcium Phosphorus Magnesium Total Bilirubin AST ALT Alkaline Phosphatase Total Protein Albumin Random Vancomycin - Impressions ITS Impressions Abdomen/Pelvis CT 08/30/18 11:21 CONCLUSION: 1. Severe anasarca. 2. Moderate-sized bilateral pleural effusions with adjacent alveolar consolidations consistent with compressive atelectasis or pneumonia. 3. Fecal debris within the rectum raising the possibility of fecal impaction. 4. Stable partially calcified left adrenal mass. 5. Hepatomegaly. 6. Minimal ascites. Head CT 08/30/18 11:21 CONCLUSION: 1. Mild periventricular and subcortical white matter small vessel ischemic changes bilaterally. 2. Cerebral atrophy. 3. No acute infarct, acute hemorrhage, midline shift or extra-axial bleed. . Chest X-Ray 09/02/18 05:00 CONCLUSION: Deterioration with increasing parenchymal changes left base and interstitial edema. Pleural effusion has increased slightly on the left. Discharge Plan - Discharge Disposition Patient Disposition: /Home Health Service - Discharge Condition Condition: Stable - Discharge Order Discharge Orders: Discharge Order (Routine); Ordered 09/06/18 Ordered By: Luis Gunn - Discharge Details Anticipated Discharge Date: 09/06/18 - Physicians Team Primary Care Provider: UNKNOWN, Attending Provider: Luis Gunn Other Providers: Des Toro MD
== END 2018-09-06 13:59 | disposition home health service (06) ==
LOC: NEPC 11:13 → NEDA 15:00 → HIMC 17:05 → N05 08-31 13:35
PROVIDERS: ADMIT Internal Medicine; ATTEND Internal Medicine

== ENCOUNTER 2018-09-11 03:24 | Inpatient (IN) ==
[2018-09-11 03:58] LABS: Baso # (Auto) 0.2 th/mm3 (0.0-0.2); Baso % (Auto) 2.3 % (0.0-2.0); Eos % (Auto) 0.6 % (0.0-4.0); Hematocrit 30.9 % (35.0-46.0); Hemoglobin 9.5 gm/dL (11.6-15.3); Lymph % (Auto) 13.4 % (9.0-44.0); Mean Corpuscular Hemoglobin 30.4 pg (27.0-34.0); Mean Corpuscular Volume 99.1 fL (80.0-100.0); Mean Platelet Volume 8.7 fL (7.0-11.0); Mono # (Auto) 0.5 th/mm3 (0.0-0.9); Mono % (Auto) 7.2 % (0.0-8.0); Neut # (Auto) 5.4 th/mm3 (1.8-7.7); Neut % (Auto) 76.5 % (16.0-70.0); Platelet Count 244 th/mm3 (150-450); Red Blood Count 3.12 mil/mm3 (4.00-5.30); Red Cell Distribution Width 16.3 % (11.6-17.2); White Blood Count 7.1 th/mm3 (4.0-11.0)
[2018-09-11 04:04] LABS: Mean Corpuscular HGB Conc 30.7 % (32.0-36.0)
[2018-09-11 04:16] LABS: Alanine Aminotransferase 12 U/L (10-53); Albumin 2.1 g/dL (3.4-5.0); Anion Gap 14 meq/L (5-15); Aspartate Aminotransferase 11 U/L (15-37); Blood Urea Nitrogen 38 mg/dL (7-18); Calcium 8.6 mg/dL (8.5-10.1); Carbon Dioxide 21.1 meq/L (21.0-32.0); Chloride 92 meq/L (98-107); Glomerular Filtration Rate 16 mL/min (>89); Sodium 127 meq/L (136-145)
--- NOTE | 2018-09-11 04:16 | ED ---
HPI General Chief Complaint: Respiratory Symptoms Stated Complaint: Diff breathing Time Seen by Provider: 09/11/18 03:43 Source: patient and EMS Mode of arrival: EMS History of Present Illness HPI Narrative: Patient is a 67-year-old female with a history of insulin- dependent diabetic COPD CHF , hypertensive end-stage renal disease STarted Dialysis in April ( Dr Toro ) she is coming in saying for the last 2 days she is having congestion feeling of sore throat cough and progressive worsening of shortness of breath > she says she is on home O2 but she says she does not have a nebulizer, she only has an HFA . Tonight her main complaint is shortness of breath sore throat congestion progressively getting worse not responding to her HFA albuterol she denies chest pain no nausea no vomit no fluid loss no fever no sick contacts she lives with her and her adult daughter and her grandchildren Related Data Home Medications Medication Instructions Recorded Confirmed albuterol sulfate [Ventolin HFA] 2 puff INHALATION Q6H PRN 06/03/18 09/11/18 aspirin 81 mg PO DAILY 06/03/18 09/11/18 budesonide-formoterol [Symbicort] 2 puff INHALATION BID 06/03/18 09/11/18 atorvastatin 80 mg PO HS 08/30/18 09/11/18 insulin detemir U-100 [Levemir 20 unit SUBCUT BID 08/30/18 09/11/18 FlexTouch U-100 Insuln] mupirocin 1 applic TOPICAL BID 08/30/18 09/11/18 prasugrel 10 mg PO DAILY 08/30/18 09/11/18 vit B comp no.6-sweml-W-biotin 1 tab PO DAILY 08/30/18 09/11/18 [Nephro-Bonita Rx] Previous Rx's Medication Instructions Recorded carvedilol 6.25 mg PO BID #60 tab 08/11/18 hydralazine 100 mg PO TID #90 tab 08/11/18 bumetanide 1 mg PO BID 30 Days #60 tab 09/06/18 calcium acetate 667 mg PO TID 30 Days #90 cap 09/06/18 gabapentin 100 mg PO HS cap 09/06/18 nifedipine 60 mg PO DAILY 30 Days #30 tab 09/06/18 Allergies Allergy/AdvReac Type Severity Reaction Status Date / Time propoxyphene Allergy Intermediate RASH Verified 07/18/18 07:41 Review of Systems ROS: all other systems reviewed are negative [facility] Social History Social History Substance History: No History of Abuse Second Hand Smoke Exposure: No Smoking Status: Former smoker Tobacco Type: Cigarettes Packs Per Day: 1 (1ppd) Cigarettes Per Day: 20.0 Years Smoked: 35 Pack-Years: 35.00 Smoking End Date: The patient reports that she quit smoking 16 years ago. How Often Do You Have a Drink Containing Alcohol: Monthly or less Recent Travel in [facility] within the Last 8 Weeks: No Recent Out of Country Travel within the Last 8 Weeks: No Immunization History Tetanus Immunization: Unsure Exam Narrative Exam Narrative: GENERAL: slight resp distress on nasal cannula SKIN: Warm and dry. HEAD: Atraumatic. Normocephalic. EYES: Pupils equal and round. No scleral icterus. No injection or drainage. ENT: No nasal bleeding or discharge. Mucous membranes pink and moist. NECK: Trachea midline. No JVD. CARDIOVASCULAR: Regular rate and rhythm. RESPIRATORY: wheeze in upper field R> L GASTROINTESTINAL: Abdomen soft, non-tender, nondistended. Hepatic and splenic margins not palpable. MUSCULOSKELETAL: Extremities without clubbing, cyanosis, or edema. No obvious deformities. toenails unkempt overgrown NEUROLOGICAL: Awake and alert. No obvious cranial nerve deficits. Motor grossly within normal limits. Five out of 5 muscle strength in the arms and legs. Normal speech. PSYCHIATRIC: Appropriate mood and affect; insight and judgment normal. Course Initial Documented Vital Signs Temperature 98.1 F 09/11/18 03:36 Pulse Rate 64 09/11/18 03:36 Respiratory Rate 20 09/11/18 03:36 Blood Pressure 124/78 09/11/18 03:36 Pulse Oximetry 86 L 09/11/18 03:36 Last Documented Vital Signs Temperature 97.3 F L 09/15/18 15:16 Pulse Rate 67 09/15/18 15:16 Respiratory Rate 18 09/15/18 16:19 Blood Pressure 156/69 H 09/15/18 15:16 Pulse Oximetry 96 09/15/18 17:29 Medical Decision Making MDM Narrative Medical decision making narrative: Chest xray shows pleural effusin chonic and pt is dmitted for pulmonary consult and management of acute on chronic SOB Medical Screen Exam Complete: Yes Emergency Medical Condition: Yes Differential Diagnosis Differential Diagnosis: pleural effusion CHF PNA PTX other cause SOB Lab Data Result diagrams: 09/15/18 03:54 09/15/18 03:54 Lab Results 09/11/18 09/11/18 09/11/18 Range/Units 03:50 03:50 03:50 WBC 7.1 (4.0-11.0) th/mm3 RBC 3.12 L (4.00-5.30) mil/mm3 Hgb 9.5 L (11.6-15.3) gm/dL Hct 30.9 L (35.0-46.0) % MCV 99.1 (80.0-100.0) fL MCH 30.4 (27.0-34.0) pg MCHC 30.7 L (32.0-36.0) % RDW 16.3 (11.6-17.2) % Plt Count 244 (150-450) th/mm3 MPV 8.7 (7.0-11.0) fL Neut % (Auto) 76.5 H (16.0-70.0) % Lymph % (Auto) 13.4 (9.0-44.0) % Stephenson % (Auto) 7.2 (0.0-8.0) % Eos % (Auto) 0.6 (0.0-4.0) % Baso % (Auto) 2.3 H (0.0-2.0) % Neut # (Auto) 5.4 (1.8-7.7) th/mm3 Lymph # (Auto) 1.0 (1.0-4.8) th/mm3 Stephenson # (Auto) 0.5 (0.0-0.9) th/mm3 Eos # (Auto) 0.0 (0.0-0.4) th/mm3 Baso # (Auto) 0.2 (0.0-0.2) th/mm3 WBC Differential . Differential Comment Auto diff final Sodium 127 L (136-145) meq/L Potassium 4.0 (3.5-5.1) meq/L Chloride 92 L (98-107) meq/L Carbon Dioxide 21.1 (21.0-32.0) meq/L Anion Gap 14 (5-15) meq/L BUN 38 H (7-18) mg/dL Creatinine 3.00 H (0.50-1.00) mg/dL Estimated GFR 16 L (>89) mL/min POC Glucose (68-110) mg/dl Random Glucose 771 H* (74-106) mg/dL Hemoglobin A1c (4.3-6.0) % Calcium 8.6 (8.5-10.1) mg/dL Phosphorus (2.5-4.9) mg/dL Magnesium (1.5-2.5) mg/dL Total Bilirubin 0.3 (0.2-1.0) mg/dL AST 11 L (15-37) U/L ALT 12 (10-53) U/L Alkaline Phosphatase 139 H (45-117) U/L Troponin I 0.03 (0.02-0.05) ng/mL B-Natriuretic Peptide 2644 H (0-100) pg/mL Total Protein 6.6 D (6.4-8.2) g/dL Albumin 2.1 L (3.4-5.0) g/dL Beta-Hydroxybutyric Acd (0.00-0.39) mmol/L Nasal Screen MRSA (PCR) (Negative) 09/11/18 09/11/18 09/11/18 Range/Units 03:50 05:20 06:10 WBC (4.0-11.0) th/mm3 RBC (4.00-5.30) mil/mm3 Hgb (11.6-15.3) gm/dL Hct (35.0-46.0) % MCV (80.0-100.0) fL MCH (27.0-34.0) pg MCHC (32.0-36.0) % RDW (11.6-17.2) % Plt Count (150-450) th/mm3 MPV (7.0-11.0) fL Neut % (Auto) (16.0-70.0) % Lymph % (Auto) (9.0-44.0) % Stephenson % (Auto) (0.0-8.0) % Eos % (Auto) (0.0-4.0) % Baso % (Auto) (0.0-2.0) % Neut # (Auto) (1.8-7.7) th/mm3 Lymph # (Auto) (1.0-4.8) th/mm3 Stephenson # (Auto) (0.0-0.9) th/mm3 Eos # (Auto) (0.0-0.4) th/mm3 Baso # (Auto) (0.0-0.2) th/mm3 WBC Differential Differential Comment Sodium (136-145) meq/L Potassium (3.5-5.1) meq/L Chloride (98-107) meq/L Carbon Dioxide (21.0-32.0) meq/L Anion Gap (5-15) meq/L BUN (7-18) mg/dL Creatinine (0.50-1.00) mg/dL Estimated GFR (>89) mL/min POC Glucose Greater than 600 H* Greater than 600 H* (68-110) mg/dl Random Glucose (74-106) mg/dL Hemoglobin A1c (4.3-6.0) % Calcium (8.5-10.1) mg/dL Phosphorus (2.5-4.9) mg/dL Magnesium (1.5-2.5) mg/dL Total Bilirubin (0.2-1.0) mg/dL AST (15-37) U/L ALT (10-53) U/L Alkaline Phosphatase (45-117) U/L Troponin I (0.02-0.05) ng/mL B-Natriuretic Peptide (0-100) pg/mL Total Protein (6.4-8.2) g/dL Albumin (3.4-5.0) g/dL Beta-Hydroxybutyric Acd 2.62 H (0.00-0.39) mmol/L Nasal Screen MRSA (PCR) (Negative) 09/11/18 09/11/18 09/11/18 Range/Units 08:10 10:05 11:55 WBC (4.0-11.0) th/mm3 RBC (4.00-5.30) mil/mm3 Hgb (11.6-15.3) gm/dL Hct (35.0-46.0) % MCV (80.0-100.0) fL MCH (27.0-34.0) pg MCHC (32.0-36.0) % RDW (11.6-17.2) % Plt Count (150-450) th/mm3 MPV (7.0-11.0) fL Neut % (Auto) (16.0-70.0) % Lymph % (Auto) (9.0-44.0) % Stephenson % (Auto) (0.0-8.0) % Eos % (Auto) (0.0-4.0) % Baso % (Auto) (0.0-2.0) % Neut # (Auto) (1.8-7.7) th/mm3 Lymph # (Auto) (1.0-4.8) th/mm3 Stephenson # (Auto) (0.0-0.9) th/mm3 Eos # (Auto) (0.0-0.4) th/mm3 Baso # (Auto) (0.0-0.2) th/mm3 WBC Differential Differential Comment Sodium (136-145) meq/L Potassium (3.5-5.1) meq/L Chloride (98-107) meq/L Carbon Dioxide (21.0-32.0) meq/L Anion Gap (5-15) meq/L BUN (7-18) mg/dL Creatinine (0.50-1.00) mg/dL Estimated GFR (>89) mL/min POC Glucose 583 H* 472 H* 337 H (68-110) mg/dl Random Glucose (74-106) mg/dL Hemoglobin A1c (4.3-6.0) % Calcium (8.5-10.1) mg/dL Phosphorus (2.5-4.9) mg/dL Magnesium (1.5-2.5) mg/dL Total Bilirubin (0.2-1.0) mg/dL AST (15-37) U/L ALT (10-53) U/L Alkaline Phosphatase (45-117) U/L Troponin I (0.02-0.05) ng/mL B-Natriuretic Peptide (0-100) pg/mL Total Protein (6.4-8.2) g/dL Albumin (3.4-5.0) g/dL Beta-Hydroxybutyric Acd (0.00-0.39) mmol/L Nasal Screen MRSA (PCR) (Negative) 09/11/18 09/11/18 09/11/18 Range/Units 17:08 17:29 20:31 WBC (4.0-11.0) th/mm3 RBC (4.00-5.30) mil/mm3 Hgb (11.6-15.3) gm/dL Hct (35.0-46.0) % MCV (80.0-100.0) fL MCH (27.0-34.0) pg MCHC (32.0-36.0) % RDW (11.6-17.2) % Plt Count (150-450) th/mm3 MPV (7.0-11.0) fL Neut % (Auto) (16.0-70.0) % Lymph % (Auto) (9.0-44.0) % Stephenson % (Auto) (0.0-8.0) % Eos % (Auto) (0.0-4.0) % Baso % (Auto) (0.0-2.0) % Neut # (Auto) (1.8-7.7) th/mm3 Lymph # (Auto) (1.0-4.8) th/mm3 Stephenson # (Auto) (0.0-0.9) th/mm3 Eos # (Auto) (0.0-0.4) th/mm3 Baso # (Auto) (0.0-0.2) th/mm3 WBC Differential Differential Comment Sodium (136-145) meq/L Potassium (3.5-5.1) meq/L Chloride (98-107) meq/L Carbon Dioxide (21.0-32.0) meq/L Anion Gap (5-15) meq/L BUN (7-18) mg/dL Creatinine (0.50-1.00) mg/dL Estimated GFR (>89) mL/min POC Glucose 69 102 57 L (68-110) mg/dl Random Glucose (74-106) mg/dL Hemoglobin A1c (4.3-6.0) % Calcium (8.5-10.1) mg/dL Phosphorus (2.5-4.9) mg/dL Magnesium (1.5-2.5) mg/dL Total Bilirubin (0.2-1.0) mg/dL AST (15-37) U/L ALT (10-53) U/L Alkaline Phosphatase (45-117) U/L Troponin I (0.02-0.05) ng/mL B-Natriuretic Peptide (0-100) pg/mL Total Protein (6.4-8.2) g/dL Albumin (3.4-5.0) g/dL Beta-Hydroxybutyric Acd (0.00-0.39) mmol/L Nasal Screen MRSA (PCR) (Negative) 09/11/18 09/11/18 09/12/18 Range/Units 20:53 21:15 00:16 WBC (4.0-11.0) th/mm3 RBC (4.00-5.30) mil/mm3 Hgb (11.6-15.3) gm/dL Hct (35.0-46.0) % MCV (80.0-100.0) fL MCH (27.0-34.0) pg MCHC (32.0-36.0) % RDW (11.6-17.2) % Plt Count (150-450) th/mm3 MPV (7.0-11.0) fL Neut % (Auto) (16.0-70.0) % Lymph % (Auto) (9.0-44.0) % Stephenson % (Auto) (0.0-8.0) % Eos % (Auto) (0.0-4.0) % Baso % (Auto) (0.0-2.0) % Neut # (Auto) (1.8-7.7) th/mm3 Lymph # (Auto) (1.0-4.8) th/mm3 Stephenson # (Auto) (0.0-0.9) th/mm3 Eos # (Auto) (0.0-0.4) th/mm3 Baso # (Auto) (0.0-0.2) th/mm3 WBC Differential Differential Comment Sodium (136-145) meq/L Potassium (3.5-5.1) meq/L Chloride (98-107) meq/L Carbon Dioxide (21.0-32.0) meq/L Anion Gap (5-15) meq/L BUN (7-18) mg/dL Creatinine (0.50-1.00) mg/dL Estimated GFR (>89) mL/min POC Glucose 73 94 97 (68-110) mg/dl Random Glucose (74-106) mg/dL Hemoglobin A1c (4.3-6.0) % Calcium (8.5-10.1) mg/dL Phosphorus (2.5-4.9) mg/dL Magnesium (1.5-2.5) mg/dL Total Bilirubin (0.2-1.0) mg/dL AST (15-37) U/L ALT (10-53) U/L Alkaline Phosphatase (45-117) U/L Troponin I (0.02-0.05) ng/mL B-Natriuretic Peptide (0-100) pg/mL Total Protein (6.4-8.2) g/dL Albumin (3.4-5.0) g/dL Beta-Hydroxybutyric Acd (0.00-0.39) mmol/L Nasal Screen MRSA (PCR) (Negative) 09/12/18 09/12/18 09/12/18 Range/Units 03:35 06:27 06:27 WBC 5.8 (4.0-11.0) th/mm3 RBC 3.40 L (4.00-5.30) mil/mm3 Hgb 10.2 L (11.6-15.3) gm/dL Hct 31.7 L (35.0-46.0) % MCV 93.2 D (80.0-100.0) fL MCH 29.9 (27.0-34.0) pg MCHC 32.1 (32.0-36.0) % RDW 16.2 (11.6-17.2) % Plt Count 234 (150-450) th/mm3 MPV 8.1 (7.0-11.0) fL Neut % (Auto) 64.4 (16.0-70.0) % Lymph % (Auto) 20.5 (9.0-44.0) % Stephenson % (Auto) 10.2 H (0.0-8.0) % Eos % (Auto) 3.4 (0.0-4.0) % Baso % (Auto) 1.5 (0.0-2.0) % Neut # (Auto) 3.8 (1.8-7.7) th/mm3 Lymph # (Auto) 1.2 (1.0-4.8) th/mm3 Stephenson # (Auto) 0.6 (0.0-0.9) th/mm3 Eos # (Auto) 0.2 (0.0-0.4) th/mm3 Baso # (Auto) 0.1 (0.0-0.2) th/mm3 WBC Differential . Differential Comment Auto diff final Sodium 131 L (136-145) meq/L Potassium 3.6 (3.5-5.1) meq/L Chloride 95 L (98-107) meq/L Carbon Dioxide 23.0 (21.0-32.0) meq/L Anion Gap 13 (5-15) meq/L BUN 40 H (7-18) mg/dL Creatinine 2.93 H (0.50-1.00) mg/dL Estimated GFR 16 L (>89) mL/min POC Glucose 108 (68-110) mg/dl Random Glucose 129 H D (74-106) mg/dL Hemoglobin A1c (4.3-6.0) % Calcium 8.7 (8.5-10.1) mg/dL Phosphorus (2.5-4.9) mg/dL Magnesium (1.5-2.5) mg/dL Total Bilirubin 0.2 (0.2-1.0) mg/dL AST 23 (15-37) U/L ALT 13 (10-53) U/L Alkaline Phosphatase 116 (45-117) U/L Troponin I (0.02-0.05) ng/mL B-Natriuretic Peptide (0-100) pg/mL Total Protein 6.1 L (6.4-8.2) g/dL Albumin 1.9 L (3.4-5.0) g/dL Beta-Hydroxybutyric Acd (0.00-0.39) mmol/L Nasal Screen MRSA (PCR) (Negative) 09/12/18 09/12/18 09/12/18 Range/Units 08:03 11:39 16:49 WBC (4.0-11.0) th/mm3 RBC (4.00-5.30) mil/mm3 Hgb (11.6-15.3) gm/dL Hct (35.0-46.0) % MCV (80.0-100.0) fL MCH (27.0-34.0) pg MCHC (32.0-36.0) % RDW (11.6-17.2) % Plt Count (150-450) th/mm3 MPV (7.0-11.0) fL Neut % (Auto) (16.0-70.0) % Lymph % (Auto) (9.0-44.0) % Stephenson % (Auto) (0.0-8.0) % Eos % (Auto) (0.0-4.0) % Baso % (Auto) (0.0-2.0) % Neut # (Auto) (1.8-7.7) th/mm3 Lymph # (Auto) (1.0-4.8) th/mm3 Stephenson # (Auto) (0.0-0.9) th/mm3 Eos # (Auto) (0.0-0.4) th/mm3 Baso # (Auto) (0.0-0.2) th/mm3 WBC Differential Differential Comment Sodium (136-145) meq/L Potassium (3.5-5.1) meq/L Chloride (98-107) meq/L Carbon Dioxide (21.0-32.0) meq/L Anion Gap (5-15) meq/L BUN (7-18) mg/dL Creatinine (0.50-1.00) mg/dL Estimated GFR (>89) mL/min POC Glucose 156 H 264 H 114 H (68-110) mg/dl Random Glucose (74-106) mg/dL Hemoglobin A1c (4.3-6.0) % Calcium (8.5-10.1) mg/dL Phosphorus (2.5-4.9) mg/dL Magnesium (1.5-2.5) mg/dL Total Bilirubin (0.2-1.0) mg/dL AST (15-37) U/L ALT (10-53) U/L Alkaline Phosphatase (45-117) U/L Troponin I (0.02-0.05) ng/mL B-Natriuretic Peptide (0-100) pg/mL Total Protein (6.4-8.2) g/dL Albumin (3.4-5.0) g/dL Beta-Hydroxybutyric Acd (0.00-0.39) mmol/L Nasal Screen MRSA (PCR) (Negative) 09/12/18 09/13/18 09/13/18 Range/Units 20:02 05:36 05:36 WBC 5.3 (4.0-11.0) th/mm3 RBC 4.46 (4.00-5.30) mil/mm3 Hgb 13.4 D (11.6-15.3) gm/dL Hct 41.6 (35.0-46.0) % MCV 93.3 (80.0-100.0) fL MCH 30.1 (27.0-34.0) pg MCHC 32.3 (32.0-36.0) % RDW 16.9 (11.6-17.2) % Plt Count 303 (150-450) th/mm3 MPV 8.3 (7.0-11.0) fL Neut % (Auto) 70.5 H (16.0-70.0) % Lymph % (Auto) 18.3 (9.0-44.0) % Stephenson % (Auto) 7.9 (0.0-8.0) % Eos % (Auto) 2.0 (0.0-4.0) % Baso % (Auto) 1.3 (0.0-2.0) % Neut # (Auto) 3.7 (1.8-7.7) th/mm3 Lymph # (Auto) 1.0 (1.0-4.8) th/mm3 Stephenson # (Auto) 0.4 (0.0-0.9) th/mm3 Eos # (Auto) 0.1 (0.0-0.4) th/mm3 Baso # (Auto) 0.1 (0.0-0.2) th/mm3 WBC Differential . Differential Comment Auto diff final Sodium 135 L (136-145) meq/L Potassium 3.5 (3.5-5.1) meq/L Chloride 98 (98-107) meq/L Carbon Dioxide 27.8 (21.0-32.0) meq/L Anion Gap 9 (5-15) meq/L BUN 26 H (7-18) mg/dL Creatinine 2.21 H (0.50-1.00) mg/dL Estimated GFR 22 L (>89) mL/min POC Glucose 100 (68-110) mg/dl Random Glucose 22 L* D (74-106) mg/dL Hemoglobin A1c (4.3-6.0) % Calcium 9.4 (8.5-10.1) mg/dL Phosphorus 3.1 (2.5-4.9) mg/dL Magnesium (1.5-2.5) mg/dL Total Bilirubin (0.2-1.0) mg/dL AST (15-37) U/L ALT (10-53) U/L Alkaline Phosphatase (45-117) U/L Troponin I (0.02-0.05) ng/mL B-Natriuretic Peptide (0-100) pg/mL Total Protein (6.4-8.2) g/dL Albumin 2.3 L (3.4-5.0) g/dL Beta-Hydroxybutyric Acd (0.00-0.39) mmol/L Nasal Screen MRSA (PCR) (Negative) 09/13/18 09/13/18 09/13/18 Range/Units 05:36 07:36 08:01 WBC (4.0-11.0) th/mm3 RBC (4.00-5.30) mil/mm3 Hgb (11.6-15.3) gm/dL Hct (35.0-46.0) % MCV (80.0-100.0) fL MCH (27.0-34.0) pg MCHC (32.0-36.0) % RDW (11.6-17.2) % Plt Count (150-450) th/mm3 MPV (7.0-11.0) fL Neut % (Auto) (16.0-70.0) % Lymph % (Auto) (9.0-44.0) % Stephenson % (Auto) (0.0-8.0) % Eos % (Auto) (0.0-4.0) % Baso % (Auto) (0.0-2.0) % Neut # (Auto) (1.8-7.7) th/mm3 Lymph # (Auto) (1.0-4.8) th/mm3 Stephenson # (Auto) (0.0-0.9) th/mm3 Eos # (Auto) (0.0-0.4) th/mm3 Baso # (Auto) (0.0-0.2) th/mm3 WBC Differential Differential Comment Sodium (136-145) meq/L Potassium (3.5-5.1) meq/L Chloride (98-107) meq/L Carbon Dioxide (21.0-32.0) meq/L Anion Gap (5-15) meq/L BUN (7-18) mg/dL Creatinine (0.50-1.00) mg/dL Estimated GFR (>89) mL/min POC Glucose 35 L* 85 (68-110) mg/dl Random Glucose (74-106) mg/dL Hemoglobin A1c 10.8 H (4.3-6.0) % Calcium (8.5-10.1) mg/dL Phosphorus (2.5-4.9) mg/dL Magnesium (1.5-2.5) mg/dL Total Bilirubin (0.2-1.0) mg/dL AST (15-37) U/L ALT (10-53) U/L Alkaline Phosphatase (45-117) U/L Troponin I (0.02-0.05) ng/mL B-Natriuretic Peptide (0-100) pg/mL Total Protein (6.4-8.2) g/dL Albumin (3.4-5.0) g/dL Beta-Hydroxybutyric Acd (0.00-0.39) mmol/L Nasal Screen MRSA (PCR) (Negative) 09/13/18 09/13/18 09/13/18 Range/Units 08:08 08:30 09:32 WBC (4.0-11.0) th/mm3 RBC (4.00-5.30) mil/mm3 Hgb (11.6-15.3) gm/dL Hct (35.0-46.0) % MCV (80.0-100.0) fL MCH (27.0-34.0) pg MCHC (32.0-36.0) % RDW (11.6-17.2) % Plt Count (150-450) th/mm3 MPV (7.0-11.0) fL Neut % (Auto) (16.0-70.0) % Lymph % (Auto) (9.0-44.0) % Stephenson % (Auto) (0.0-8.0) % Eos % (Auto) (0.0-4.0) % Baso % (Auto) (0.0-2.0) % Neut # (Auto) (1.8-7.7) th/mm3 Lymph # (Auto) (1.0-4.8) th/mm3 Stephenson # (Auto) (0.0-0.9) th/mm3 Eos # (Auto) (0.0-0.4) th/mm3 Baso # (Auto) (0.0-0.2) th/mm3 WBC Differential Differential Comment Sodium (136-145) meq/L Potassium (3.5-5.1) meq/L Chloride (98-107) meq/L Carbon Dioxide (21.0-32.0) meq/L Anion Gap (5-15) meq/L BUN (7-18) mg/dL Creatinine (0.50-1.00) mg/dL Estimated GFR (>89) mL/min POC Glucose 157 H 131 H 110 (68-110) mg/dl Random Glucose (74-106) mg/dL Hemoglobin A1c (4.3-6.0) % Calcium (8.5-10.1) mg/dL Phosphorus (2.5-4.9) mg/dL Magnesium (1.5-2.5) mg/dL Total Bilirubin (0.2-1.0) mg/dL AST (15-37) U/L ALT (10-53) U/L Alkaline Phosphatase (45-117) U/L Troponin I (0.02-0.05) ng/mL B-Natriuretic Peptide (0-100) pg/mL Total Protein (6.4-8.2) g/dL Albumin (3.4-5.0) g/dL Beta-Hydroxybutyric Acd (0.00-0.39) mmol/L Nasal Screen MRSA (PCR) (Negative) 09/13/18 09/13/18 09/13/18 Range/Units 10:30 11:01 11:01 WBC (4.0-11.0) th/mm3 RBC (4.00-5.30) mil/mm3 Hgb (11.6-15.3) gm/dL Hct (35.0-46.0) % MCV (80.0-100.0) fL MCH (27.0-34.0) pg MCHC (32.0-36.0) % RDW (11.6-17.2) % Plt Count (150-450) th/mm3 MPV (7.0-11.0) fL Neut % (Auto) (16.0-70.0) % Lymph % (Auto) (9.0-44.0) % Stephenson % (Auto) (0.0-8.0) % Eos % (Auto) (0.0-4.0) % Baso % (Auto) (0.0-2.0) % Neut # (Auto) (1.8-7.7) th/mm3 Lymph # (Auto) (1.0-4.8) th/mm3 Stephenson # (Auto) (0.0-0.9) th/mm3 Eos # (Auto) (0.0-0.4) th/mm3 Baso # (Auto) (0.0-0.2) th/mm3 WBC Differential Differential Comment Sodium 135 L (136-145) meq/L Potassium 3.6 (3.5-5.1) meq/L Chloride 97 L (98-107) meq/L Carbon Dioxide 28.3 (21.0-32.0) meq/L Anion Gap 10 (5-15) meq/L BUN 25 H (7-18) mg/dL Creatinine 2.38 H (0.50-1.00) mg/dL Estimated GFR 20 L (>89) mL/min POC Glucose 117 H (68-110) mg/dl Random Glucose 108 H (74-106) mg/dL Hemoglobin A1c (4.3-6.0) % Calcium 9.0 (8.5-10.1) mg/dL Phosphorus 3.5 (2.5-4.9) mg/dL Magnesium 2.1 (1.5-2.5) mg/dL Total Bilirubin (0.2-1.0) mg/dL AST (15-37) U/L ALT (10-53) U/L Alkaline Phosphatase (45-117) U/L Troponin I (0.02-0.05) ng/mL B-Natriuretic Peptide (0-100) pg/mL Total Protein (6.4-8.2) g/dL Albumin (3.4-5.0) g/dL Beta-Hydroxybutyric Acd (0.00-0.39) mmol/L Nasal Screen MRSA (PCR) (Negative) 09/13/18 09/13/18 09/13/18 Range/Units 11:56 13:17 15:48 WBC (4.0-11.0) th/mm3 RBC (4.00-5.30) mil/mm3 Hgb (11.6-15.3) gm/dL Hct (35.0-46.0) % MCV (80.0-100.0) fL MCH (27.0-34.0) pg MCHC (32.0-36.0) % RDW (11.6-17.2) % Plt Count (150-450) th/mm3 MPV (7.0-11.0) fL Neut % (Auto) (16.0-70.0) % Lymph % (Auto) (9.0-44.0) % Stephenson % (Auto) (0.0-8.0) % Eos % (Auto) (0.0-4.0) % Baso % (Auto) (0.0-2.0) % Neut # (Auto) (1.8-7.7) th/mm3 Lymph # (Auto) (1.0-4.8) th/mm3 Stephenson # (Auto) (0.0-0.9) th/mm3 Eos # (Auto) (0.0-0.4) th/mm3 Baso # (Auto) (0.0-0.2) th/mm3 WBC Differential Differential Comment Sodium (136-145) meq/L Potassium (3.5-5.1) meq/L Chloride (98-107) meq/L Carbon Dioxide (21.0-32.0) meq/L Anion Gap (5-15) meq/L BUN (7-18) mg/dL Creatinine (0.50-1.00) mg/dL Estimated GFR (>89) mL/min POC Glucose 121 H 132 H 183 H (68-110) mg/dl Random Glucose (74-106) mg/dL Hemoglobin A1c (4.3-6.0) % Calcium (8.5-10.1) mg/dL Phosphorus (2.5-4.9) mg/dL Magnesium (1.5-2.5) mg/dL Total Bilirubin (0.2-1.0) mg/dL AST (15-37) U/L ALT (10-53) U/L Alkaline Phosphatase (45-117) U/L Troponin I (0.02-0.05) ng/mL B-Natriuretic Peptide (0-100) pg/mL Total Protein (6.4-8.2) g/dL Albumin (3.4-5.0) g/dL Beta-Hydroxybutyric Acd (0.00-0.39) mmol/L Nasal Screen MRSA (PCR) (Negative) 09/13/18 09/13/18 09/13/18 Range/Units 16:42 18:40 21:09 WBC (4.0-11.0) th/mm3 RBC (4.00-5.30) mil/mm3 Hgb (11.6-15.3) gm/dL Hct (35.0-46.0) % MCV (80.0-100.0) fL MCH (27.0-34.0) pg MCHC (32.0-36.0) % RDW (11.6-17.2) % Plt Count (150-450) th/mm3 MPV (7.0-11.0) fL Neut % (Auto) (16.0-70.0) % Lymph % (Auto) (9.0-44.0) % Stephenson % (Auto) (0.0-8.0) % Eos % (Auto) (0.0-4.0) % Baso % (Auto) (0.0-2.0) % Neut # (Auto) (1.8-7.7) th/mm3 Lymph # (Auto) (1.0-4.8) th/mm3 Stephenson # (Auto) (0.0-0.9) th/mm3 Eos # (Auto) (0.0-0.4) th/mm3 Baso # (Auto) (0.0-0.2) th/mm3 WBC Differential Differential Comment Sodium (136-145) meq/L Potassium (3.5-5.1) meq/L Chloride (98-107) meq/L Carbon Dioxide (21.0-32.0) meq/L Anion Gap (5-15) meq/L BUN (7-18) mg/dL Creatinine (0.50-1.00) mg/dL Estimated GFR (>89) mL/min POC Glucose 234 H 224 H 252 H (68-110) mg/dl Random Glucose (74-106) mg/dL Hemoglobin A1c (4.3-6.0) % Calcium (8.5-10.1) mg/dL Phosphorus (2.5-4.9) mg/dL Magnesium (1.5-2.5) mg/dL Total Bilirubin (0.2-1.0) mg/dL AST (15-37) U/L ALT (10-53) U/L Alkaline Phosphatase (45-117) U/L Troponin I (0.02-0.05) ng/mL B-Natriuretic Peptide (0-100) pg/mL Total Protein (6.4-8.2) g/dL Albumin (3.4-5.0) g/dL Beta-Hydroxybutyric Acd (0.00-0.39) mmol/L Nasal Screen MRSA (PCR) (Negative) 09/14/18 09/14/18 09/14/18 Range/Units 01:04 11:15 11:32 WBC (4.0-11.0) th/mm3 RBC (4.00-5.30) mil/mm3 Hgb (11.6-15.3) gm/dL Hct (35.0-46.0) % MCV (80.0-100.0) fL MCH (27.0-34.0) pg MCHC (32.0-36.0) % RDW (11.6-17.2) % Plt Count (150-450) th/mm3 MPV (7.0-11.0) fL Neut % (Auto) (16.0-70.0) % Lymph % (Auto) (9.0-44.0) % Stephenson % (Auto) (0.0-8.0) % Eos % (Auto) (0.0-4.0) % Baso % (Auto) (0.0-2.0) % Neut # (Auto) (1.8-7.7) th/mm3 Lymph # (Auto) (1.0-4.8) th/mm3 Stephenson # (Auto) (0.0-0.9) th/mm3 Eos # (Auto) (0.0-0.4) th/mm3 Baso # (Auto) (0.0-0.2) th/mm3 WBC Differential Differential Comment Sodium (136-145) meq/L Potassium (3.5-5.1) meq/L Chloride (98-107) meq/L Carbon Dioxide (21.0-32.0) meq/L Anion Gap (5-15) meq/L BUN (7-18) mg/dL Creatinine (0.50-1.00) mg/dL Estimated GFR (>89) mL/min POC Glucose 336 H 302 H (68-110) mg/dl Random Glucose (74-106) mg/dL Hemoglobin A1c (4.3-6.0) % Calcium (8.5-10.1) mg/dL Phosphorus (2.5-4.9) mg/dL Magnesium (1.5-2.5) mg/dL Total Bilirubin (0.2-1.0) mg/dL AST (15-37) U/L ALT (10-53) U/L Alkaline Phosphatase (45-117) U/L Troponin I (0.02-0.05) ng/mL B-Natriuretic Peptide (0-100) pg/mL Total Protein (6.4-8.2) g/dL Albumin (3.4-5.0) g/dL Beta-Hydroxybutyric Acd (0.00-0.39) mmol/L Nasal Screen MRSA (PCR) Not detected (Negative) 09/14/18 09/14/18 09/14/18 Range/Units 18:17 20:48 22:00 WBC (4.0-11.0) th/mm3 RBC (4.00-5.30) mil/mm3 Hgb (11.6-15.3) gm/dL Hct (35.0-46.0) % MCV (80.0-100.0) fL MCH (27.0-34.0) pg MCHC (32.0-36.0) % RDW (11.6-17.2) % Plt Count (150-450) th/mm3 MPV (7.0-11.0) fL Neut % (Auto) (16.0-70.0) % Lymph % (Auto) (9.0-44.0) % Stephenson % (Auto) (0.0-8.0) % Eos % (Auto) (0.0-4.0) % Baso % (Auto) (0.0-2.0) % Neut # (Auto) (1.8-7.7) th/mm3 Lymph # (Auto) (1.0-4.8) th/mm3 Stephenson # (Auto) (0.0-0.9) th/mm3 Eos # (Auto) (0.0-0.4) th/mm3 Baso # (Auto) (0.0-0.2) th/mm3 WBC Differential Differential Comment Sodium (136-145) meq/L Potassium (3.5-5.1) meq/L Chloride (98-107) meq/L Carbon Dioxide (21.0-32.0) meq/L Anion Gap (5-15) meq/L BUN (7-18) mg/dL Creatinine (0.50-1.00) mg/dL Estimated GFR (>89) mL/min POC Glucose 345 H 420 H 360 H (68-110) mg/dl Random Glucose (74-106) mg/dL Hemoglobin A1c (4.3-6.0) % Calcium (8.5-10.1) mg/dL Phosphorus (2.5-4.9) mg/dL Magnesium (1.5-2.5) mg/dL Total Bilirubin (0.2-1.0) mg/dL AST (15-37) U/L ALT (10-53) U/L Alkaline Phosphatase (45-117) U/L Troponin I (0.02-0.05) ng/mL B-Natriuretic Peptide (0-100) pg/mL Total Protein (6.4-8.2) g/dL Albumin (3.4-5.0) g/dL Beta-Hydroxybutyric Acd (0.00-0.39) mmol/L Nasal Screen MRSA (PCR) (Negative) 09/15/18 09/15/18 09/15/18 Range/Units 03:51 03:54 03:54 WBC 5.0 (4.0-11.0) th/mm3 RBC 3.52 L (4.00-5.30) mil/mm3 Hgb 10.5 L D (11.6-15.3) gm/dL Hct 33.3 L (35.0-46.0) % MCV 94.7 (80.0-100.0) fL MCH 29.9 (27.0-34.0) pg MCHC 31.6 L (32.0-36.0) % RDW 16.8 (11.6-17.2) % Plt Count 212 D (150-450) th/mm3 MPV 8.3 (7.0-11.0) fL Neut % (Auto) (16.0-70.0) % Lymph % (Auto) (9.0-44.0) % Stephenson % (Auto) (0.0-8.0) % Eos % (Auto) (0.0-4.0) % Baso % (Auto) (0.0-2.0) % Neut # (Auto) (1.8-7.7) th/mm3 Lymph # (Auto) (1.0-4.8) th/mm3 Stephenson # (Auto) (0.0-0.9) th/mm3 Eos # (Auto) (0.0-0.4) th/mm3 Baso # (Auto) (0.0-0.2) th/mm3 WBC Differential Differential Comment Sodium 137 (136-145) meq/L Potassium 3.9 (3.5-5.1) meq/L Chloride 99 (98-107) meq/L Carbon Dioxide 30.9 (21.0-32.0) meq/L Anion Gap 7 (5-15) meq/L BUN 24 H (7-18) mg/dL Creatinine 2.19 H (0.50-1.00) mg/dL Estimated GFR 22 L (>89) mL/min POC Glucose 254 H (68-110) mg/dl Random Glucose 261 H D (74-106) mg/dL Hemoglobin A1c (4.3-6.0) % Calcium 8.2 L D (8.5-10.1) mg/dL Phosphorus (2.5-4.9) mg/dL Magnesium (1.5-2.5) mg/dL Total Bilirubin (0.2-1.0) mg/dL AST (15-37) U/L ALT (10-53) U/L Alkaline Phosphatase (45-117) U/L Troponin I (0.02-0.05) ng/mL B-Natriuretic Peptide (0-100) pg/mL Total Protein (6.4-8.2) g/dL Albumin (3.4-5.0) g/dL Beta-Hydroxybutyric Acd (0.00-0.39) mmol/L Nasal Screen MRSA (PCR) (Negative) 09/15/18 09/15/18 09/15/18 Range/Units 08:02 11:28 16:45 WBC (4.0-11.0) th/mm3 RBC (4.00-5.30) mil/mm3 Hgb (11.6-15.3) gm/dL Hct (35.0-46.0) % MCV (80.0-100.0) fL MCH (27.0-34.0) pg MCHC (32.0-36.0) % RDW (11.6-17.2) % Plt Count (150-450) th/mm3 MPV (7.0-11.0) fL Neut % (Auto) (16.0-70.0) % Lymph % (Auto) (9.0-44.0) % Stephenson % (Auto) (0.0-8.0) % Eos % (Auto) (0.0-4.0) % Baso % (Auto) (0.0-2.0) % Neut # (Auto) (1.8-7.7) th/mm3 Lymph # (Auto) (1.0-4.8) th/mm3 Stephenson # (Auto) (0.0-0.9) th/mm3 Eos # (Auto) (0.0-0.4) th/mm3 Baso # (Auto) (0.0-0.2) th/mm3 WBC Differential Differential Comment Sodium (136-145) meq/L Potassium (3.5-5.1) meq/L Chloride (98-107) meq/L Carbon Dioxide (21.0-32.0) meq/L Anion Gap (5-15) meq/L BUN (7-18) mg/dL Creatinine (0.50-1.00) mg/dL Estimated GFR (>89) mL/min POC Glucose 341 H 350 H 219 H (68-110) mg/dl Random Glucose (74-106) mg/dL Hemoglobin A1c (4.3-6.0) % Calcium (8.5-10.1) mg/dL Phosphorus (2.5-4.9) mg/dL Magnesium (1.5-2.5) mg/dL Total Bilirubin (0.2-1.0) mg/dL AST (15-37) U/L ALT (10-53) U/L Alkaline Phosphatase (45-117) U/L Troponin I (0.02-0.05) ng/mL B-Natriuretic Peptide (0-100) pg/mL Total Protein (6.4-8.2) g/dL Albumin (3.4-5.0) g/dL Beta-Hydroxybutyric Acd (0.00-0.39) mmol/L Nasal Screen MRSA (PCR) (Negative) Imaging Data Radiologist's impression: Chest X-Ray 09/11/18 03:43 CONCLUSION: Chronic pleural effusions and basilar airspace disease, left greater than right. Findings are stable since prior exam. Chest X-Ray 09/13/18 00:00 CONCLUSION: 1. Stable moderate left pleural effusion and associated left lower lobe airspace disease. 2. Worsening right-sided pleural effusion, now [id number] in size, with associated right lower lobe airspace disease. 3. Persistent positive fluid balance. Extremity Arterial Study 09/15/18 00:00 CONCLUSION: 1. Diminished finger brachial indices at each digit most characteristic of steno-occlusive disease in the right upper extremity. Discharge Plan Discharge Disposition Patient Disposition: 30 Still Patient Physicians Team ED Provider: Addison Weiss Primary Care Provider: Primary Care Nat Beckwith Attending Provider: Faustino Galan Other Providers: Des Toro ; Aaron Blankenship ; Dunia Reddy ; Bravo Vanessa ; Anabell Cerrato Discharge Interventions Interventions: ED Discharge Assessment Last Done: 09/11/18 06:17 Status ED Status: Left Department Discharge Information Discharge Date/Time: 09/11/18 06:17
--- NOTE | 2018-09-11 04:17 | XR ---
EXAM DATE: 09/11/2018 3:43 AM EDT AGE/SEX: 67 years / Female INDICATIONS: Shortness of breath. CLINICAL DATA: This is the patient's initial encounter. Patient reports that signs and symptoms have been present for 1 day and indicates a pain score of 0/10. MEDICAL/SURGICAL HISTORY: Chronic obstructive pulmonary disease. Hypertension. Diabetes amberi tus type I. Coronary artery stent. COMPARISON: [facility] [place] CHEST 1V SINGLE AP, 09/02/2018. . FINDINGS: There are chronic pleural effusions, left greater than right with basilar airspace disease, left grea ter than right. Findings are similar to September 02. No pneumothorax. CONCLUSION: Chronic pleural effusions and basilar airspace disease, left greater than right. Findings are stable since prior exam. Electronically signed by: Amadou Salazar MD 09/11/2018 4:16 AM EDT
[2018-09-11 04:19] LABS: Total Protein 6.6 g/dL (6.4-8.2)
[2018-09-11 04:22] LABS: Alkaline Phosphatase 139 U/L (45-117); Troponin I 0.03 ng/mL (0.02-0.05)
[2018-09-11 04:26] LABS: Glucose,Random 771 mg/dL (74-106)
[2018-09-11] MEDS ORDERED: Sodium Chlor 0.9% Inj 250 ML IV.SIG ONE (04:27)
[2018-09-11] MEDS ORDERED: Acetaminophen 325 MG Tablet PO PRN (04:42)
[2018-09-11] MEDS ORDERED: Insulin Detemir Inj 1,000 UNIT/10 ML Vial SQ ONE (04:43)
[2018-09-11] MEDS ORDERED: Dextrose 50% in Water 50 ML Vial IV.PUSH PRN (04:43)
--- NOTE | 2018-09-11 05:24 | P.HPIM ---
History of Present Illness Primary Care Physician: No Primary Care Physician History of Present Illness: This is a 67-year-old female with a PMH of HTN, COPD, Hyperlipidemia, O2 Dependent, h/o CAD, DM and ESRD on HD M/W/F who presented to the ER w/ SOB and non-productive cough x2 days. Recent admit 08/30-09/06/18 for similar complaints , found to have CHF Exacerbation w/ significant left pleural effusion s/p thoracentesis/chest tube, NSTEMI and suspected Sepsis. States she had been doing well after discharge until 2 days ago. Using home Nebulizers w/ minimal relief. Follows w/ Dr. Toro, last HD on Wednesday w/ no complications. Denies fever, chills, chest pain or sick contacts. On arrival, BP 124/78, HR 64, O2 sat 86% on RA, Afebrile. CBC unremarkable. Creatinine 3.0, previous E2.86. BS 771. BNP 2644. Troponin 0 0.03. CXR with chronic pleural effusions left greater than right, finding stable since prior exam. S/p DuoNeb in ER w/ some improvement. - Diagnosis (1) CHF (congestive heart failure) (2) Pleural effusion (3) Hypoxia (4) ESRD on dialysis (5) DM (diabetes mellitus) Inpatient Certification: I certify that the inpatient services were ordered in accordance with Medicare regulations governing the order. This includes certification that hospital inpatient services are reasonable and necessary and in the case of services not specified as inpatient-only under 42 CFR 419.22(n), that they are appropriately provided as inpatient services in accordance to with the 2-midnight benchmark under 43 CFR 412.3(e) Estimated Total Length of Stay (Days): 2 Plans for Post Hospital Care: Not yet determined Review of Systems PAST FAMILY HISTORY: Reviewed. No h/o DM or CAD All other systems reviewed negative except as stated in HPI PMFSH - History History Provided By: Patient, Law Enforcement - Medical History Medical History: Medical History (Last Reviewed 09/11/18 @ 03:41 by Linwood Shin) A-V fistula Anemia CAD (coronary artery disease) CAD (coronary artery disease) CHF (congestive heart failure) CHF (congestive heart failure) COPD (chronic obstructive pulmonary disease) COPD (chronic obstructive pulmonary disease) Chronic back pain Diabetes Diabetes ESRD (end stage renal disease) on dialysis End stage kidney disease HLD (hyperlipidemia) Hemodialysis access, AV graft Hemodialysis access, AV graft Hyperkalemia Hypertension Hypoxia - Surgical History Surgical History: Surgical History (Last Reviewed 09/11/18 @ 03:41 by Linwood Shin) H/O laminectomy H/O vaginal hysterectomy H/O: History of laser refractive surgery History of tonsillectomy Hx of appendectomy Hx of heart artery stent Stented coronary artery - Family History Family History: Family History (Last Reviewed 09/02/18 @ 12:33 by Jessica Edwards) Other ALS (amyotrophic lateral sclerosis) Multiple sclerosis - Tobacco History Second Hand Smoke Exposure: No Smoking Status: Former smoker Tobacco Type: Cigarettes Packs Per Day: 1 (1ppd) Years Smoked: 35 Smoking End Date: The patient reports that she quit smoking 16 years ago. - Alcohol History How Often Do You Have a Drink Containing Alcohol: Never - Substance Use History Substance History: No History of Abuse - Travel History Recent Travel in the [place] Within the Last 8 Weeks: No Recent Travel Out of the Country Within the Last 8 Weeks: No - Immunization History Tetanus Immunization: Unsure Medications and Allergies Active Medications: Active Medications Acetaminophen (Tylenol) 650 mg PO Q4H PRN PRN Reason: Temp > 100.4 Al Hydroxide/Mg Hydroxide (Milk Of Leonidas Liq) 30 ml PO Q12H PRN PRN Reason: Mild Constipation Albuterol (Duoneb Neb (Prn)) 1 ampul NEB Q4HR NEB PRN PRN Reason: SOB/WHEEZING Aspirin (Ecotrin) 81 mg PO DAILY YAMILET Atorvastatin Calcium (Lipitor) 80 mg PO HS YAMILET Bisacodyl (Dulcolax Supp) 10 mg RECTAL DAILY PRN PRN Reason: SEVERE CONSITIPATION Budesonide/Formoterol Fumarate (Symbicort 160/4.5 Mcg Inh) 2 puff INH BID YAM[facility]T Calcium Acetate (Phoslo) 667 mg PO TID Y[facility]T Carvedilol (Coreg) 6.25 mg PO BID YAMILET Dextrose (D50w Vial) 50 ml IV.PUSH UNSCH PRN PRN Reason: PER HYPOGLYCEMIA PROTOCOL Gabapentin (Neurontin) 100 mg PO HS YAMILET Glucagon (Glucagon Inj) 1 mg OTHER PRN PRN PRN Reason: for Hypoglycemia Protocol Hydralazine HCl (Apresoline) 100 mg PO TID YAMILET Insulin Aspart (Novolog Insulin Correctional Sugar Inj) 0 unit SQ ACHS YAMILET; Protocol Lactulose (Lactulose Liq) 30 ml PO DAILY PRN PRN Reason: SEVERE CONSITIPATION Nifedipine (Procardia Xl) 60 mg PO DAILY [facility] Ondansetron HCl (Zofran Inj) 4 mg IV.PUSH Q6H PRN PRN Reason: NAUSEA OR VOMITING Prasugrel (Effient) 10 mg PO DAILY [facility] Senna/Docusate Sodium (Jocelyn-Colace) 1 tab PO BID [facility] Sennosides (Senokot) 17.2 mg PO Q12H PRN PRN Reason: Moderate Constipation Allergies Allergy/AdvReac Type Severity Reaction Status Date / Time propoxyphene Allergy Intermediate RASH Verified 07/18/18 07:41 Home Medications Medication Instructions Recorded Confirmed Type albuterol sulfate [Ventolin HFA] 2 puff INHALATION Q6H PRN 06/03/18 09/11/18 History aspirin 81 mg PO DAILY 06/03/18 09/11/18 History budesonide-formoterol [Symbicort] 2 puff INHALATION BID 06/03/18 09/11/18 History atorvastatin 80 mg PO HS 08/30/18 09/11/18 History insulin detemir U-100 [Levemir 20 unit SUBCUT BID 08/30/18 09/11/18 History FlexTouch U-100 Insuln] mupirocin 1 applic TOPICAL BID 08/30/18 09/11/18 History prasugrel 10 mg PO DAILY 08/30/18 09/11/18 History vit B comp no.0-lvxez-I-biotin 1 tab PO DAILY 08/30/18 09/11/18 History [Nephro-Bonita Rx] Exam Vital signs: Vital Signs 09/11/18 03:36 09/11/18 03:44 09/11/18 03:45 Temperature 98.1 F Pulse Rate 64 65 Respiratory Rate 20 15 Blood Pressure 124/78 Pulse Oximetry 86 L 94 L 98 Intake & Output 09/10/18 09/10/18 09/11/18 06:59 18:59 06:59 Weight 2.381 kg Narrative: PE: GENERAL: Middle-aged white female in no acute distress, appears much older than stated age. SKIN: Focused skin assessment warm and dry. HEENT: PERRLA, EOMI. No scleral icterus or conjunctival pallor. No lid lag or facial droop. CARDIOVASCULAR: Regular rate and rhythm. No obvious murmurs to auscultation. No chest tenderness to palpation. RESPIRATORY: No obvious rhonchi or wheezing. Breath sounds decreased at bases. GASTROINTESTINAL: Abdomen soft, non-tender, nondistended. BS normal. MUSCULOSKELETAL: Extremities without clubbing, cyanosis, or edema. No obvious deformities. NEUROLOGICAL: Awake, alert and oriented x4. No focal neurologic deficits. Moving both upper and lower extremities spontaneously. PSYCHIATRIC: Appropriate mood and affect. Insight and judgment normal. Results - Labs CBC & Chem 7: 09/11/18 03:50 09/11/18 03:50 Labs: Short CBC 09/11/18 Range/Units 03:50 WBC 7.1 (4.0-11.0) th/mm3 Hgb 9.5 L (11.6-15.3) gm/dL Hct 30.9 L (35.0-46.0) % Plt Count 244 (150-450) th/mm3 BMP 09/11/18 03:50 Sodium 127 L Potassium 4.0 Chloride 92 L Carbon Dioxide 21.1 BUN 38 H Creatinine 3.00 H Calcium 8.6 Cardiac Enzymes 09/11/18 Range/Units 03:50 Troponin I 0.03 (0.02-0.05) ng/mL Liver Function 09/11/18 Range/Units 03:50 Total Bilirubin 0.3 (0.2-1.0) mg/dL AST 11 L (15-37) U/L ALT 12 (10-53) U/L Alkaline Phosphatase 139 H (45-117) U/L Albumin 2.1 L (3.4-5.0) g/dL - Imaging Impressions Chest X-Ray 09/11/18 03:43 CONCLUSION: Chronic pleural effusions and basilar airspace disease, left greater than right. Findings are stable since prior exam. Caprini VTE Risk Assessment Caprini VTE Risk Assessment: No/Low Risk (score <= 1) Caprini Risk Assessment Model: Point Value = 1 Point Value = 2 Point Value = 3 Point Value = 5 Age 41-60 Minor surgery BMI > 25 kg/m2 Swollen legs Varicose veins or History of unexplained or recurrent spontaneous Oral contraceptives or hormone replacement Sepsis (< 1 month) Serious lung disease, including pneumonia (< 1 month) Abnormal pulmonary function Acute myocardial infarction Congestive heart failure (< 1 month) History of inflammatory bowel disease Medical patient at bed rest Age 61-74 Arthroscopic surgery Major open surgery (> 45 min) Laparoscopic surgery (> 45 min) Malignancy Confined to bed (> 72 hours) Immobilizing plaster cast Central venous access Age >= 75 History of VTE Family history of VTE Factor V Leiden Prothrombin [id number] Lupus anticoagulant Anticardiolipin antibodies Elevated serum homocysteine Heparin-induced thrombocytopenia Other congenital or acquired thrombophilia Stroke (< 1 month) Elective arthroplasty Hip, pelvis, or leg fracture Acute spinal cord injury (< 1 month) Prophylaxis Regimen: Total Risk Factor Score Risk Level Prophylaxis Regimen 0-1 Low Early ambulation 2 Moderate Order ONE of the following: *Sequential Compression Device (SCD) *Heparin 5000 units SQ BID 3-4 Higher Order ONE of the following medications: *Heparin 5000 units SQ TID *Enoxaparin/Lovenox 40 mg SQ daily (WT < 150 kg, CrCl > 30 mL/min) *Enoxaparin/Lovenox 30 mg SQ daily (WT < 150 kg, CrCl > 10-29 mL/min) *Enoxaparin/Lovenox 30 mg SQ BID (WT < 150 kg, CrCl > 30 mL/min) AND/OR *Sequential Compression Device (SCD) 5 or more Highest Order ONE of the following medications: *Heparin 5000 units SQ TID (Preferred with Epidurals) *Enoxaparin/Lovenox 40 mg SQ daily (WT < 150 kg, CrCl > 30 mL/min) *Enoxaparin/Lovenox 30 mg SQ daily (WT < 150 kg, CrCl > 10-29 mL/min) *Enoxaparin/Lovenox 30 mg SQ BID (WT < 150 kg, CrCl > 30 mL/min) AND *Sequential Compression Device (SCD) Assessment and Plan - Assessment (1) CHF (congestive heart failure) Code(s): I50.9 - Heart failure, unspecified Status: Acute (2) Pleural effusion Code(s): J90 - Pleural effusion, not elsewhere classified Status: Acute (3) Hypoxia Code(s): R09.02 - Hypoxemia Status: Acute (4) ESRD on dialysis Code(s): N18.6 - End stage renal disease; Z99.2 - Dependence on renal dialysis Status: Acute (5) DM (diabetes mellitus) Code(s): E11.9 - Type 2 diabetes mellitus without complications Status: Acute - Plan A/P: 1. CHF: Acute on Chronic. Diastolic. Echo 08/09/18 w/ EF 50-55%, BNP 2644, CXR w/ chronic effusions, images reviewed. Resume home Bumex, monitor I/O, consult Nephrology to resume HD for fluid removal. 2. Pleural Effusion: recent admit w/ large left effusion s/p thoracentesis/ chest tube, CXR w/ pleural effusions, left greater than right, however stable. Will watch closely, monitor I/O. 3. Hypoxia: O2 sat 86% on RA upon arrival, O2 dependent at night per patient, currently O2 sat 94% on 4L NC, monitor closely. DuoNeb prn. 4. DM: Uncontrolled. BS 771, no evidence of acidosis/DKA. Sliding scale w/ Reneu-Margoth Saha. 5. ESRD on HD: M/W/F, follows w/ Dr. Toro, will consult to resume HD 6. DVT Prophylaxis: SCD/Teds 7. Social work for d/c planning as needed 8. Case discussed w/ ER physician at length, labs/records/imaging reviewed by me.
[2018-09-11] MEDS: Insulin NovoLOG Aspart Correctional Sugar Inj SQ SCH ×4 (08:19→22:06)
[2018-09-11] MEDS: Calcium Acetate 667 MG Capsule PO SCH ×3 (08:20→17:19)
[2018-09-11] MEDS: Senna/Docusate Sodium 8.6/50 MG Tablet PO SCH ×2 (08:20→22:07)
[2018-09-11] MEDS: Budesonide-Formoterol 160/4.5 MCG 6 GM Inhaler INH SCH ×2 (09:05→22:07)
[2018-09-11] MEDS: Carvedilol 6.25 MG Tablet PO SCH ×2 (09:05→21:33)
--- NOTE | 2018-09-11 13:38 | MB ---
cc: Des Toro MD DATE: 09/11/2018 REASON FOR CONSULTATION: End-stage renal disease, on hemodialysis for management. HISTORY OF PRESENT ILLNESS: This is a 67-year-old female with past medical history of hypertension, chronic obstructive pulmonary disease, hyperlipidemia, diabetes mellitus, congestive heart failure with recurrent pleural effusion, end-stage renal disease on hemodialysis 3 times per week, who came to the hospital complaining of worsening shortness of breath. I was called to see the patient because of management of dialysis. She has been on hemodialysis Wednesday, Wednesday and Wednesday, and the last time she had the dialysis was on Wednesday and, according to the patient, she had 3 liters fluid removed. The patient was recently discharged from the hospital and at that time she also had shortness of breath and had thoracocentesis done in the past. The last echocardiogram, done in December of this year, shows that her ejection fraction was 55-66% with mitral valve regurgitation. The patient denies any chest pain. She has this worsening shortness of breath more on lying flat. She has cough with whitish sputum. There is no history of fever. No palpitation. Occasionally, has nausea. She is not eating well because of the breathing problem, no vomiting, no abdominal pain. No history of diarrhea. The patient claims to be compliant with her fluid restriction. PAST MEDICAL HISTORY: Hypertension, ischemic heart disease, congestive heart failure with diastolic dysfunction, diabetes mellitus, recurrent pleural effusion, chronic obstructive pulmonary disease, end-stage renal disease on hemodialysis 3 times per week. PAST SURGICAL HISTORY: History of AV fistula surgery, hysterectomy, laminectomy, tonsillectomy, appendicectomy cardiac catheterization with stent placement. REVIEW OF SYSTEMS: Denies any history of fever. No headache, dizziness or blurring of vision. She has mild nausea. There is no vomiting. She has this worsening shortness of breath, more with exertion and lying flat. Has cough which is mainly dry with whitish sputum. There is no chest pain. No palpitation. No vomiting. No history of diarrhea. SOCIAL HISTORY: The patient is and lives with her . She has a past history of smoking. There is no history of heavy alcoholism. FAMILY HISTORY: Noncontributory. ALLERGIES: SHE IS ALLERGIC TO PROPOXYPHENE. MEDICATIONS: Currently she is on the following medications: 1. Tylenol as needed. 2. DuoNeb as needed. 3. Aspirin 81 mg once a day. 4. Lipitor 80 mg at bedtime. 5. Bumex 1 mg b.i.d. 6. PhosLo 667 mg t.i.d. 7. Coreg 6.25 mg b.i.d. 8. Neurontin 100 mg at bedtime. 9. Hydralazine 100 mg t.i.d. 10. Insulin aspart sliding scale. 11. Lactulose 30 mL p.r.n. 12. Procardia-XL 60 mg once a day. 13. Zofran as needed. 14. Effient 10 mg daily. 15. Jocelyn-Colace 1 tablet b.i.d. 16. Senokot as needed. PHYSICAL EXAMINATION: GENERAL: The patient is awake, alert. She is in moderate respiratory distress. VITAL SIGNS: Blood pressure 112/43. Temperature is 98.1, oxygen saturation on 6 liters simple mask is 95%. HEENT: Pupils are mid constricted. Nonicteric sclerae. Conjunctivae pale. NECK: Supple. JVD slightly elevated. LUNGS: The patient has bilateral decreased air entry with basal rales and scattered wheezing. HEART: S1, S2. Regular rate and rhythm. ABDOMEN: Distended, soft, lax. There is no tenderness. EXTREMITIES: She has 1+ leg edema. LABORATORY DATA: WBC count is 7.1, hemoglobin 9.5, platelet count of 244, neutrophils 76.5%. Sodium 127, potassium 4.0, chloride 92, bicarbonate 21.1, BUN 38, creatinine 3.0, last glucose greater than 600. Calcium is 8.6, total bilirubin 0.3, AST is 11, ALT is 12. Troponin is 0.03. BNP is 2644, albumin is 2.1, total protein 6.6. Beta hydroxybutyric is 2.6. IMAGING STUDIES: The patient had the chest x-ray done and it shows she has bilateral pleural effusion, left greater than right. ASSESSMENT AND PLAN: 1. Shortness of breath with bilateral pleural effusion. 2. Congestive heart failure with diastolic dysfunction. 3. End-stage renal disease on hemodialysis. 4. Diabetes mellitus with uncontrolled blood sugar. 5. Anemia. The patient has this recurrent pleural effusion and had a thoracentesis done before in the past. She had her regular dialysis done on Wednesday. I agree with giving her some Bumex. The patient has been on fluid restriction and we will dialyze her tomorrow to remove more fluid. Possibly will need pulmonary consult to see if she needs a thoracentesis. Again, thank you for the consultation and I will follow the patient while she is in the hospital. MD MAYTE Bhat/fanny , 10:15 AM , 10:26 AM
--- NOTE | 2018-09-11 14:08 | ECG ---
Date Performed: 09/11/2018 Time Performed: 03:24:16 PTAGE: 67 years EKG: Sinus rhythm POOR R WAVE PROGRESSION WHICH MAY BE NORMAL VARIANT BORDERLINE LEFT AXIS DEVIATION SLIGHT INTRAVENTR ICULAR CONDUCTION DISTURBANCE MINOR T WAVE CHANGE BORDERLINE ECG Compared to PREVIOUS TRACING , T-waves slightly improved, otherwise no significant change PREVIOUS TR ACIN08/30/2018 11.28.12 DOCTOR: Timo Cobb Interpretating Date/Time 09/11/2018 14:06:13
[2018-09-11] MEDS: Acetaminophen 325 MG Tablet PO PRN ×2 (17:19→21:37)
[2018-09-11] MEDS: Gabapentin 100 MG Capsule PO SCH (21:33)
[2018-09-11] MEDS: Insulin Detemir Inj 1,000 UNIT/10 ML Vial SQ SCH (22:06)
[2018-09-12 07:20] LABS: Baso # (Auto) 0.1 th/mm3 (0.0-0.2); Baso % (Auto) 1.5 % (0.0-2.0); Eos # (Auto) 0.2 th/mm3 (0.0-0.4); Eos % (Auto) 3.4 % (0.0-4.0); Hematocrit 31.7 % (35.0-46.0); Hemoglobin 10.2 gm/dL (11.6-15.3); Lymph # (Auto) 1.2 th/mm3 (1.0-4.8); Lymph % (Auto) 20.5 % (9.0-44.0); Mean Corpuscular HGB Conc 32.1 % (32.0-36.0); Mean Corpuscular Hemoglobin 29.9 pg (27.0-34.0); Mean Corpuscular Volume 93.2 fL (80.0-100.0); Mean Platelet Volume 8.1 fL (7.0-11.0); Mono # (Auto) 0.6 th/mm3 (0.0-0.9); Mono % (Auto) 10.2 % (0.0-8.0); Neut # (Auto) 3.8 th/mm3 (1.8-7.7); Neut % (Auto) 64.4 % (16.0-70.0); Platelet Count 234 th/mm3 (150-450); Red Cell Distribution Width 16.2 % (11.6-17.2); White Blood Count 5.8 th/mm3 (4.0-11.0)
[2018-09-12 07:57] LABS: Alanine Aminotransferase 13 U/L (10-53); Albumin 1.9 g/dL (3.4-5.0); Anion Gap 13 meq/L (5-15); Aspartate Aminotransferase 23 U/L (15-37); Blood Urea Nitrogen 40 mg/dL (7-18); Chloride 95 meq/L (98-107); Glomerular Filtration Rate 16 mL/min (>89); Glucose,Random 129 mg/dL (74-106); Potassium 3.6 meq/L (3.5-5.1); Sodium 131 meq/L (136-145)
[2018-09-12 08:04] LABS: Alkaline Phosphatase 116 U/L (45-117); Calcium 8.7 mg/dL (8.5-10.1); Total Protein 6.1 g/dL (6.4-8.2)
[2018-09-12] MEDS: Insulin NovoLOG Aspart Correctional Sugar Inj SQ SCH ×4 (08:04→20:36)
[2018-09-12] MEDS: Calcium Acetate 667 MG Capsule PO SCH ×4 (08:05→17:15)
--- NOTE | 2018-09-12 10:04 | P.PNNP ---
Subjective Interval history: Patient reports shortness of breath and cough. Denies any nausea, vomiting, or diarrhea. <KarlosadrianErikaJessica - Last Filed: 09/12/18 09:53> Physical Exam Vital signs: Vital Signs 09/11/18 10:11 09/11/18 10:37 09/11/18 10:38 Temperature Pulse Rate 58 L Respiratory Rate 22 Blood Pressure Pulse Oximetry 95 96 09/11/18 10:46 09/11/18 11:00 09/11/18 12:00 Temperature 98.2 F Pulse Rate 63 62 Respiratory Rate 18 Blood Pressure 139/57 L Pulse Oximetry 95 97 09/11/18 13:28 09/11/18 15:00 09/11/18 16:39 Temperature 98.2 F 97.9 F Pulse Rate 65 68 Respiratory Rate 20 22 Blood Pressure 160/73 H 149/68 H Pulse Oximetry 95 96 96 09/11/18 17:05 09/11/18 18:00 09/11/18 19:00 Temperature 98.1 F Pulse Rate 70 68 77 Respiratory Rate 22 Blood Pressure 161/63 H Pulse Oximetry 96 09/11/18 20:00 09/11/18 21:00 09/11/18 21:48 Temperature Pulse Rate 78 78 Respiratory Rate Blood Pressure Pulse Oximetry 95 09/11/18 22:00 09/11/18 23:00 09/12/18 00:00 Temperature Pulse Rate 78 79 62 Respiratory Rate 20 Blood Pressure 158/73 H Pulse Oximetry 94 L 09/12/18 00:49 09/12/18 01:00 09/12/18 02:00 Temperature Pulse Rate 76 78 80 Respiratory Rate 18 Blood Pressure Pulse Oximetry 09/12/18 03:00 09/12/18 04:00 09/12/18 05:00 Temperature Pulse Rate 83 62 62 Respiratory Rate 18 Blood Pressure 165/77 H Pulse Oximetry 93 L 09/12/18 06:00 09/12/18 07:00 09/12/18 08:00 Temperature 98.1 F Pulse Rate 62 65 63 Respiratory Rate 16 Blood Pressure 167/69 H Pulse Oximetry 93 L 09/12/18 08:53 09/12/18 09:00 09/12/18 09:32 Temperature Pulse Rate 68 66 Respiratory Rate 16 Blood Pressure Pulse Oximetry Intake & Output 09/11/18 09/12/18 09/12/18 18:59 06:59 18:59 Intake Total 240 / 240 240 / 240 Output Total 0 / 0 0 / 0 Balance 240 / 240 240 / 240 Weight 67.8 kg Intake: Oral 240 / 240 240 / 240 Output: Urine 0 / 0 0 / 0 Other: Date of Last Bowel Movement 09/10/18 09/10/18 09/10/18 # Bowel Movements 0 Weight On Admission 2.381 kg Narrative: GENERAL: alert and oriented. SKIN: Warm and dry. NECK: Supple, trachea midline. Mild JVD distention. CARDIOVASCULAR: Regular rate and rhythm without murmurs, gallops, or rubs. Right AVG. RESPIRATORY: Breath sounds equal bilaterally. No accessory muscle use. GASTROINTESTINAL: Abdomen soft, non-tender, nondistended. MUSCULOSKELETAL: No cyanosis. 1 + Edema. BACK: Nontender without obvious deformity. No CVA tenderness. <Jessica Clemons - Last Filed: 09/12/18 09:53> Vital signs: Vital Signs 09/14/18 11:30 09/14/18 11:45 09/14/18 12:00 Temperature 97.9 F Pulse Rate 79 62 65 Respiratory Rate 17 17 26 H Blood Pressure 135/63 129/59 L 132/61 Pulse Oximetry 97 97 93 L 09/14/18 13:00 09/14/18 14:00 09/14/18 14:01 Temperature Pulse Rate 78 70 71 Respiratory Rate 20 21 14 Blood Pressure 136/58 L 176/72 H Pulse Oximetry 93 L 97 96 09/14/18 15:00 09/14/18 16:00 09/14/18 17:00 Temperature 98.4 F Pulse Rate 67 68 74 Respiratory Rate 19 19 21 Blood Pressure 156/70 H 165/70 H Pulse Oximetry 96 94 L 86 L 09/14/18 17:01 09/14/18 18:00 09/14/18 18:01 Temperature Pulse Rate 74 74 73 Respiratory Rate 20 24 21 Blood Pressure 136/60 164/65 H Pulse Oximetry 87 L 93 L 92 L 09/14/18 19:00 09/14/18 20:00 09/14/18 21:00 Temperature 98.3 F Pulse Rate 84 84 76 Respiratory Rate 22 Blood Pressure 146/67 H Pulse Oximetry 93 L 09/14/18 22:00 09/14/18 22:57 09/14/18 23:00 Temperature Pulse Rate 70 69 67 Respiratory Rate 17 Blood Pressure Pulse Oximetry 09/15/18 00:00 09/15/18 01:00 09/15/18 02:00 Temperature 98.4 F Pulse Rate 66 66 66 Respiratory Rate 22 Blood Pressure 159/71 H Pulse Oximetry 97 09/15/18 02:57 09/15/18 03:00 09/15/18 04:00 Temperature 97.9 F Pulse Rate 67 66 68 Respiratory Rate 15 22 Blood Pressure 161/72 H Pulse Oximetry 96 09/15/18 05:00 09/15/18 06:00 09/15/18 07:00 Temperature Pulse Rate 68 69 70 Respiratory Rate Blood Pressure Pulse Oximetry 09/15/18 07:56 09/15/18 08:00 09/15/18 09:00 Temperature 97.3 F L Pulse Rate 70 70 70 Respiratory Rate 18 Blood Pressure 158/71 H Pulse Oximetry 97 09/15/18 10:00 09/15/18 11:02 09/15/18 11:18 Temperature 97.3 F L Pulse Rate 70 81 Respiratory Rate 18 Blood Pressure 155/68 H Pulse Oximetry 97 98 Intake & Output 09/14/18 09/15/18 09/15/18 18:59 06:59 18:59 Intake Total 740 / 740 480 / 480 Output Total 6250 / 6250 Balance -5510 / -5510 480 / 480 Weight 64.5 kg Intake: Oral 740 / 740 480 / 480 Output: Urine 250 / 250 Hemodialysis Amount 6000 / 6000 Other: Date of Last Bowel Movement 09/14/18 09/13/18 09/13/18 <Des Toro - Last Filed: 09/15/18 11:28> Assessment and Plan - Assessment (1) ESRD (end stage renal disease) on dialysis Code(s): N18.6 - End stage renal disease; Z99.2 - Dependence on renal dialysis Status: Acute Plan: ESRD on hemodialysis on Wednesday, Wednesday and Wednesday. AVG right upper arm Plan Avoid IVF administration and gadolinium. Continue Renal, high protein diet and Fluid restriction Continue PhosLo. Epogen ordered with dialysis. Hemodialysis today will remove fluid as tolerated. Labs in AM (2) Fluid overload Code(s): E87.70 - Fluid overload, unspecified Status: Acute Qualifiers: Hypervolemia type: unspecified Qualified Code(s): E87.70 - Fluid overload, unspecified Plan: Hemodialysis planned for today Continue Bumex (3) Hypertension Code(s): I10 - Essential (primary) hypertension Status: Acute Plan: Expect improvement after hemodialysis Will monitor. <Jessica Clemons - Last Filed: 09/12/18 09:53> - Assessment (1) ESRD (end stage renal disease) on dialysis Code(s): N18.6 - End stage renal disease; Z99.2 - Dependence on renal dialysis Status: Acute Plan: Patient seen and examined, agree with above. HD done today, breathing is improving. (2) Fluid overload Code(s): E87.70 - Fluid overload, unspecified Status: Acute Qualifiers: Hypervolemia type: unspecified Qualified Code(s): E87.70 - Fluid overload, unspecified (3) Hypertension Code(s): I10 - Essential (primary) hypertension Status: Acute <Des Toro - Last Filed: 09/15/18 11:28>
[2018-09-12] MEDS: Carvedilol 6.25 MG Tablet PO SCH ×2 (10:17→20:35)
[2018-09-12] MEDS: Insulin Detemir Inj 1,000 UNIT/10 ML Vial SQ SCH ×2 (10:18→20:35)
[2018-09-12] MEDS: Senna/Docusate Sodium 8.6/50 MG Tablet PO SCH ×2 (10:18→20:34)
[2018-09-12] MEDS: Budesonide-Formoterol 160/4.5 MCG 6 GM Inhaler INH SCH ×2 (10:18→20:36)
--- NOTE | 2018-09-12 11:58 | P.PNIM ---
Subjective Interval history: Patient still reports shortness of breath. Essentially unchanged from yesterday. Awaiting to have dialysis today. Physical Exam Vital signs: Vital Signs 09/11/18 12:00 09/11/18 13:28 09/11/18 15:00 Temperature 98.2 F 98.2 F Pulse Rate 62 65 Respiratory Rate 18 20 Blood Pressure 139/57 L 160/73 H Pulse Oximetry 97 95 96 09/11/18 16:39 09/11/18 17:05 09/11/18 18:00 Temperature 97.9 F Pulse Rate 68 70 68 Respiratory Rate 22 Blood Pressure 149/68 H Pulse Oximetry 96 09/11/18 19:00 09/11/18 20:00 09/11/18 21:00 Temperature 98.1 F Pulse Rate 77 78 78 Respiratory Rate 22 Blood Pressure 161/63 H Pulse Oximetry 96 09/11/18 21:48 09/11/18 22:00 09/11/18 23:00 Temperature Pulse Rate 78 79 Respiratory Rate 20 Blood Pressure 158/73 H Pulse Oximetry 95 94 L 09/12/18 00:00 09/12/18 00:49 09/12/18 01:00 Temperature Pulse Rate 62 76 78 Respiratory Rate 18 Blood Pressure Pulse Oximetry 09/12/18 02:00 09/12/18 03:00 09/12/18 04:00 Temperature Pulse Rate 80 83 62 Respiratory Rate 18 Blood Pressure 165/77 H Pulse Oximetry 93 L 09/12/18 05:00 09/12/18 06:00 09/12/18 07:00 Temperature 98.1 F Pulse Rate 62 62 65 Respiratory Rate 16 Blood Pressure 167/69 H Pulse Oximetry 93 L 09/12/18 08:00 09/12/18 08:53 09/12/18 09:00 Temperature Pulse Rate 63 68 Respiratory Rate 16 Blood Pressure Pulse Oximetry 09/12/18 09:32 09/12/18 10:31 09/12/18 10:45 Temperature Pulse Rate 66 68 Respiratory Rate Blood Pressure Pulse Oximetry 98 09/12/18 10:46 Temperature Pulse Rate 82 Respiratory Rate 16 Blood Pressure Pulse Oximetry Intake & Output 09/11/18 09/12/18 09/12/18 18:59 06:59 18:59 Intake Total 240 / 240 240 / 240 Output Total 0 / 0 0 / 0 Balance 240 / 240 240 / 240 Weight 67.8 kg Intake: Oral 240 / 240 240 / 240 Output: Urine 0 / 0 0 / 0 Other: Date of Last Bowel Movement 09/10/18 09/10/18 09/10/18 # Bowel Movements 0 Weight On Admission 2.381 kg Narrative: GENERAL: Frail, appears older than stated age. No acute distress CARDIOVASCULAR: Normal rate and regular rhythm without murmurs, gallops, or rubs. RESPIRATORY: Air movement is fair. Diminished breath sounds at the bases bilaterally. GASTROINTESTINAL: Abdomen soft, non-tender, non-distended. Normal active bowel sounds MUSCULOSKELETAL: Extremities without cyanosis, or edema. NEURO: Alert & Oriented x4 to person, place, time, situation. Moves all ext x4 PSYCH: Appropriate mood and affect. Results - Labs CBC & Chem 7: 09/12/18 06:27 09/12/18 06:27 Laboratory Results - last 24 hr 09/11/18 09/11/18 09/11/18 11:55 17:08 17:29 WBC RBC Hgb Hct MCV MCH MCHC RDW Plt Count MPV Neut % (Auto) Lymph % (Auto) [place] % (Auto) Eos % (Auto) Baso % (Auto) Neut # (Auto) Lymph # (Auto) [place] # (Auto) Eos # (Auto) Baso # (Auto) WBC Differential Differential Comment Sodium Potassium Chloride Carbon Dioxide Anion Gap BUN Creatinine Estimated GFR POC Glucose 337 H 69 102 Random Glucose Calcium Total Bilirubin AST ALT Alkaline Phosphatase Total Protein Albumin 09/11/18 09/11/18 09/11/18 20:31 20:53 21:15 WBC RBC Hgb Hct MCV MCH MCHC RDW Plt Count MPV Neut % (Auto) Lymph % (Auto) [place] % (Auto) Eos % (Auto) Baso % (Auto) Neut # (Auto) Lymph # (Auto) [place] # (Auto) Eos # (Auto) Baso # (Auto) WBC Differential Differential Comment Sodium Potassium Chloride Carbon Dioxide Anion Gap BUN Creatinine Estimated GFR POC Glucose 57 L 73 94 Random Glucose Calcium Total Bilirubin AST ALT Alkaline Phosphatase Total Protein Albumin 09/12/18 09/12/18 09/12/18 00:16 03:35 06:27 WBC 5.8 RBC 3.40 L Hgb 10.2 L Hct 31.7 L MCV 93.2 D MCH 29.9 MCHC 32.1 RDW 16.2 Plt Count 234 MPV 8.1 Neut % (Auto) 64.4 Lymph % (Auto) 20.5 [place] % (Auto) 10.2 H Eos % (Auto) 3.4 Baso % (Auto) 1.5 Neut # (Auto) 3.8 Lymph # (Auto) 1.2 [place] # (Auto) 0.6 Eos # (Auto) 0.2 Baso # (Auto) 0.1 WBC Differential . Differential Comment Auto diff final Sodium Potassium Chloride Carbon Dioxide Anion Gap BUN Creatinine Estimated GFR POC Glucose 97 108 Random Glucose Calcium Total Bilirubin AST ALT Alkaline Phosphatase Total Protein Albumin 09/12/18 09/12/18 09/12/18 06:27 08:03 11:39 WBC RBC Hgb Hct MCV MCH MCHC RDW Plt Count MPV Neut % (Auto) Lymph % (Auto) [place] % (Auto) Eos % (Auto) Baso % (Auto) Neut # (Auto) Lymph # (Auto) [place] # (Auto) Eos # (Auto) Baso # (Auto) WBC Differential Differential Comment Sodium 131 L Potassium 3.6 Chloride 95 L Carbon Dioxide 23.0 Anion Gap 13 BUN 40 H Creatinine 2.93 H Estimated GFR 16 L POC Glucose 156 H 264 H Random Glucose 129 H D Calcium 8.7 Total Bilirubin 0.2 AST 23 ALT 13 Alkaline Phosphatase 116 Total Protein 6.1 L Albumin 1.9 L Assessment and Plan - Assessment (1) CHF (congestive heart failure) Code(s): I50.9 - Heart failure, unspecified Status: Acute (2) Pleural effusion Code(s): J90 - Pleural effusion, not elsewhere classified Status: Acute (3) Hypoxia Code(s): R09.02 - Hypoxemia Status: Acute (4) ESRD on dialysis Code(s): N18.6 - End stage renal disease; Z99.2 - Dependence on renal dialysis Status: Acute (5) DM (diabetes mellitus) Code(s): E11.9 - Type 2 diabetes mellitus without complications Status: Acute - Plan 67-year-old female admitted with: CHF: Acute on Chronic. Diastolic. Echo 08/09/18 w/ EF 50-55%, BNP 2644, CXR w / chronic effusions, images reviewed. Resume home Bumex, monitor I/O, appreciate nephrology input. Will have dialysis today. Pleural Effusion: recent admit w/ large left effusion s/p thoracentesis/chest tube, CXR w/ pleural effusions, left greater than right, however stable. - Will ask Pulmonology to see the patient. Hypoxia: O2 sat 86% on RA upon arrival, O2 dependent at night per patient, currently O2 sat 94% on 4L NC, monitor closely. DuoNeb prn. DM: Uncontrolled. BS 771 on presentation Sliding scale w/ Accu-Margoth Saha. ESRD on HD: M/W/F -Appreciate nephrology following. DVT Prophylaxis: SCD/Teds
[2018-09-12] MEDS ORDERED: Albumin Human 25% Inj 100 ML IV.SIG PRN (11:59)
[2018-09-12] MEDS ORDERED: Sod Chloride 0.9% Inj 1,000 ML OTHER PRN ×2 (11:59)
[2018-09-12] MEDS ORDERED: Sod Chloride 0.9% Inj 1,000 ML IV.CONT PRN (11:59)
[2018-09-12] MEDS ORDERED: Heparin 10,000 UNITS/10 ML Vial (for IV use) OTHER PRN ×2 (11:59)
[2018-09-12] MEDS ORDERED: Acetaminophen 325 MG Tablet PO PRN (11:59)
[2018-09-12] MEDS ORDERED: Gelatin 12 MM/7 MM Topical Foam TOPICAL PRN (11:59)
[2018-09-12] MEDS: Gabapentin 100 MG Capsule PO SCH (20:35)
--- NOTE | 2018-09-12 21:05 | MB ---
cc: Aaron Blankenship MD DATE: 09/12/2018 REQUESTING PHYSICIAN: . REASON FOR CONSULTATION: Evaluation of pleural effusion. HISTORY OF PRESENT ILLNESS: Ms. Maynard is a pleasant 67-year-old female who is known to me from the office in the previous admission. She has history of COPD, hypertension, coronary artery disease status post stent placement, end-stage renal disease, on hemodialysis. She has a recurrent left pleural effusion. She had thoracentesis done on her last admission. She had a chest tube placed and she had a drainage done for 3 days. Now, she comes with increasing shortness of breath, has no fever or chills, no night sweats, no nausea or vomiting. She was evaluated in the hospital. She had a chest x-ray done, which shows she has stable chronic left pleural effusion with some airspace disease. Her CBC shows WBC count 5.8, hemoglobin 10.2, hematocrit 31.7, MCV 93, platelet count 234. Sodium 130, potassium 3.6, chloride 94, CO2 23, BUN 40, creatinine 2.93. Her throat culture is negative. MEDICATIONS: She is taking 1. She is taking Irving 5/325 mg every 4 hours p.r.n. 2. Albumin IV. 3. Albuterol nebulizer treatment. 4. Aspirin 81 mg daily. 5. Lipitor 80 mg a day. 6. Symbicort 160/4.5 two puffs twice a day. 7. Bumex 1 mg twice a day. 8. PhosLo 667 mg 3 times a day. 9. Coreg 6.25 mg twice a day. 10. Clonidine 0.1 mg p.r.n. 11. Epogen with dialysis. 12. Neurontin 100 mg at night time. 13. Hydralazine 100 mg 3 times a day. 14. She is on Insulin. 15. Nifedipine 60 mg a day. 16. Nitroglycerin p.r.n. 17. Effient 10 mg a day. ALLERGIES: SHE IS ALLERGIC TO PROPOXYPHENE. SOCIAL HISTORY: She has history of smoking in the past. No alcohol abuse. She is and lives with her daughter and . REVIEW OF SYSTEMS: Normally, she is able to walk good distance, uses oxygen 2 liters nasal cannula. No seizure, stroke, or epilepsy. No DVT or pulmonary embolism. PHYSICAL EXAMINATION: GENERAL: Elderly female, mildly short of breath, not in overt distress. VITAL SIGNS: Blood pressure 132/63, heart rate 62, respirations 18, temperature 98. HEENT: Pupils are equal, round, reactive to light. Oral mucosa and nasal mucosa normal. NECK: Supple. JVP not raised. CHEST: Decreased breath sounds at the left base. HEART: S1, S2 normal. ABDOMEN: Benign. EXTREMITIES: No edema. IMPRESSION: 1. Small stable left pleural effusion. She has a recurrent pleural effusion in the past, but now she is tolerating the effusion well. 2. Congestive heart failure. 3. Chronic kidney disease. 4. Diabetes mellitus. 5. Chronic obstructive pulmonary disease. 6. End-stage renal disease, on hemodialysis. PLAN: I discussed with the patient supplemental oxygen. She is being diuresed. Continue her Effient, supplemental oxygen and monitor her pleural effusion. If the effusion increases, then we will consider thoracentesis. At this time, she is tolerating the stable pleural effusion. Further treatment will depend on the course in the hospital. Thank you Dr. Galan for this consultation. MD TRUPTI Fishman/damion/ , 07:01 PM , 07:08 PM MTDChris
[2018-09-13 06:50] LABS: Baso # (Auto) 0.1 th/mm3 (0.0-0.2); Baso % (Auto) 1.3 % (0.0-2.0); Eos # (Auto) 0.1 th/mm3 (0.0-0.4); Hematocrit 41.6 % (35.0-46.0); Hemoglobin 13.4 gm/dL (11.6-15.3); Lymph % (Auto) 18.3 % (9.0-44.0); Mean Corpuscular HGB Conc 32.3 % (32.0-36.0); Mean Corpuscular Hemoglobin 30.1 pg (27.0-34.0); Mean Corpuscular Volume 93.3 fL (80.0-100.0); Mean Platelet Volume 8.3 fL (7.0-11.0); Mono # (Auto) 0.4 th/mm3 (0.0-0.9); Mono % (Auto) 7.9 % (0.0-8.0); Neut # (Auto) 3.7 th/mm3 (1.8-7.7); Neut % (Auto) 70.5 % (16.0-70.0); Platelet Count 303 th/mm3 (150-450); Red Blood Count 4.46 mil/mm3 (4.00-5.30); Red Cell Distribution Width 16.9 % (11.6-17.2); White Blood Count 5.3 th/mm3 (4.0-11.0)
[2018-09-13 07:18] LABS: Albumin 2.3 g/dL (3.4-5.0); Calcium 9.4 mg/dL (8.5-10.1); Carbon Dioxide 27.8 meq/L (21.0-32.0); Phosphorus 3.1 mg/dL (2.5-4.9); Potassium 3.5 meq/L (3.5-5.1)
--- NOTE | 2018-09-13 08:32 | P.PNIM ---
Subjective Interval history: SHANON called on the patient this morning for blood glucose of 22. She was hard to arouse and diaphoretic. The patient was given 1 amp of D50 and immediately transferred to the [facility] where I evaluated the patient. Blood glucose improved to 157. She is nauseous and retching. Otherwise is responding appropriately to questions. Physical Exam Vital signs: Vital Signs 09/12/18 08:53 09/12/18 09:00 09/12/18 09:32 Temperature Pulse Rate 68 66 Respiratory Rate 16 Blood Pressure Pulse Oximetry 09/12/18 10:31 09/12/18 10:45 09/12/18 10:46 Temperature Pulse Rate 68 82 Respiratory Rate 16 Blood Pressure Pulse Oximetry 98 09/12/18 12:00 09/12/18 12:04 09/12/18 12:47 Temperature 98.1 F Pulse Rate 67 68 Respiratory Rate 16 22 Blood Pressure 168/69 H Pulse Oximetry 93 L 09/12/18 14:00 09/12/18 14:09 09/12/18 15:48 Temperature Pulse Rate 63 65 84 Respiratory Rate Blood Pressure Pulse Oximetry 09/12/18 16:30 09/12/18 17:00 09/12/18 17:23 Temperature 98.0 F Pulse Rate 62 61 81 Respiratory Rate 18 Blood Pressure 132/63 Pulse Oximetry 95 09/12/18 19:24 09/12/18 20:00 09/12/18 21:22 Temperature 98.3 F Pulse Rate 70 81 Respiratory Rate 18 18 Blood Pressure 150/70 H Pulse Oximetry 95 97 09/12/18 21:30 09/12/18 22:00 09/12/18 23:00 Temperature Pulse Rate 68 71 Respiratory Rate 18 Blood Pressure Pulse Oximetry 09/13/18 00:00 09/13/18 01:00 09/13/18 02:00 Temperature 98.1 F Pulse Rate 71 75 71 Respiratory Rate 16 16 Blood Pressure 143/59 H Pulse Oximetry 97 09/13/18 03:00 09/13/18 04:00 09/13/18 06:00 Temperature 97.9 F Pulse Rate 78 81 84 Respiratory Rate 16 Blood Pressure 165/57 H Pulse Oximetry 96 Intake & Output 09/12/18 09/13/18 09/13/18 18:59 06:59 18:59 Intake Total 620 / 620 240 / 240 Output Total 60 / 60 150 / 150 Balance 560 / 560 90 / 90 Intake: Oral 620 / 620 240 / 240 Output: Urine 60 / 60 150 / 150 Other: Date of Last Bowel Movement 09/10/18 09/10/18 Narrative: GENERAL: Frail, appears older than stated age. CARDIOVASCULAR: Normal rate and regular rhythm without murmurs, gallops, or rubs. RESPIRATORY: Air movement is fair. Diminished breath sounds at the bases bilaterally. GASTROINTESTINAL: Abdomen soft, non-tender, non-distended. Normal active bowel sounds MUSCULOSKELETAL: Extremities without cyanosis, or edema. NEURO: Somewhat groggy but alert & Oriented. Moves all ext x4 PSYCH: Appropriate mood and affect. Results - Labs CBC & Chem 7: 09/13/18 05:36 09/13/18 05:36 Laboratory Results - last 24 hr 09/12/18 09/12/18 09/12/18 11:39 16:49 20:02 WBC RBC Hgb Hct MCV MCH MCHC RDW Plt Count MPV Neut % (Auto) Lymph % (Auto) [place] % (Auto) Eos % (Auto) Baso % (Auto) Neut # (Auto) Lymph # (Auto) [place] # (Auto) Eos # (Auto) Baso # (Auto) WBC Differential Differential Comment Sodium Potassium Chloride Carbon Dioxide Anion Gap BUN Creatinine Estimated GFR POC Glucose 264 H 114 H 100 Random Glucose Calcium Phosphorus Albumin 09/13/18 09/13/18 09/13/18 05:36 05:36 07:36 WBC 5.3 RBC 4.46 Hgb 13.4 D Hct 41.6 MCV 93.3 MCH 30.1 MCHC 32.3 RDW 16.9 Plt Count 303 MPV 8.3 Neut % (Auto) 70.5 H Lymph % (Auto) 18.3 [place] % (Auto) 7.9 Eos % (Auto) 2.0 Baso % (Auto) 1.3 Neut # (Auto) 3.7 Lymph # (Auto) 1.0 [place] # (Auto) 0.4 Eos # (Auto) 0.1 Baso # (Auto) 0.1 WBC Differential . Differential Comment Auto diff final Sodium 135 L Potassium 3.5 Chloride 98 Carbon Dioxide 27.8 Anion Gap 9 BUN 26 H Creatinine 2.21 H Estimated GFR 22 L POC Glucose 35 L* Random Glucose 22 L* D Calcium 9.4 Phosphorus 3.1 Albumin 2.3 L 09/13/18 09/13/18 08:01 08:08 WBC RBC Hgb Hct MCV MCH MCHC RDW Plt Count MPV Neut % (Auto) Lymph % (Auto) [place] % (Auto) Eos % (Auto) Baso % (Auto) Neut # (Auto) Lymph # (Auto) [place] # (Auto) Eos # (Auto) Baso # (Auto) WBC Differential Differential Comment Sodium Potassium Chloride Carbon Dioxide Anion Gap BUN Creatinine Estimated GFR POC Glucose 85 157 H Random Glucose Calcium Phosphorus Albumin Microbiology 09/11/18 04:00 Throat Group A Streptococcus Screen/Cult - Preliminary No Beta Streptococci isolated at 24 hours Assessment and Plan - Assessment (1) CHF (congestive heart failure) Code(s): I50.9 - Heart failure, unspecified Status: Acute (2) Pleural effusion Code(s): J90 - Pleural effusion, not elsewhere classified Status: Acute (3) Hypoxia Code(s): R09.02 - Hypoxemia Status: Acute (4) ESRD on dialysis Code(s): N18.6 - End stage renal disease; Z99.2 - Dependence on renal dialysis Status: Acute (5) DM (diabetes mellitus) Code(s): E11.9 - Type 2 diabetes mellitus without complications Status: Acute - Plan 67-year-old female on hemodialysis admitted with acute diastolic CHF. Patient is also a brittle diabetic who presented with blood sugar of 700. She has been stable in the [facility], had dialysis yesterday but had an acute hypoglycemic episode this morning. Patient is transferred to [facility]. Acute symptomatic hypoglycemia/DM: Brittle diabetic, presented with BS in the 700's. Glucose in the 20s this morning. Unsure if she ate last night. Did not have breakfast yet this morning. - Patient was given 15 units of Levemir last night. At home she takes 20 units twice daily in addition to a sliding scale. Stop Levemir for now - Patient has been given D50, glucose improved to 157. However she is currently nauseous and not eat. Given end-stage renal disease and CHF will give her a total of 500 cc of D5W. -Monitor blood glucose every hour. - Will continue to follow closely and treat accordingly. - SSI with accuchecks Nausea and vomiting: -Secondary to above. She will be given Zofran. CHF: Acute on Chronic. Diastolic. Echo 08/09/18 w/ EF 50-55%, BNP 2644, CXR w / chronic effusions, images reviewed. Continue home Bumex, monitor I/O, appreciate nephrology input. Patient had dialysis yesterday. Seems to be stable from a respiratory standpoint. CAD, runs of probable Atrial flutter: No cardiovascular complaints. Unsure if she has a history of Afib. - Consult Cardiology, Dr. Reddy - Continue Coreg, Effient, Statin. Monitor on Tele - Check electrolytes. Pleural Effusion: recent admit w/ large left effusion s/p thoracentesis/chest tube, CXR w/ pleural effusions, left greater than right, however stable. -Pulmonology consulted. - Follow-up chest x-ray today. Hypoxia: O2 sat 86% on RA upon arrival, O2 dependent at night per patient, currently O2 sat 94% on 4L NC, monitor closely. DuoNeb prn. -Respiratory status seems to be stable today. ESRD on HD: M/W/F -Appreciate nephrology following. DVT Prophylaxis: SCD/Teds Discussed Condition With: [facility] team.
[2018-09-13] MEDS: Insulin NovoLOG Aspart Correctional Sugar Inj SQ SCH ×4 (09:26→21:14)
[2018-09-13] MEDS: Carvedilol 6.25 MG Tablet PO SCH ×2 (09:46→21:13)
[2018-09-13] MEDS: Senna/Docusate Sodium 8.6/50 MG Tablet PO SCH ×2 (09:46→21:13)
--- NOTE | 2018-09-13 09:53 | P.PNNP ---
Subjective Interval history: Transferred to [facility] this morning. Hypoglycemic with blood sugar of 22. Patient is lethargic and hypothermic with warming blanket on. <Jessica Clemons - Last Filed: 09/13/18 09:40> Physical Exam Vital signs: Vital Signs 09/12/18 10:31 09/12/18 10:45 09/12/18 10:46 Temperature Pulse Rate 68 82 Respiratory Rate 16 Blood Pressure Pulse Oximetry 98 09/12/18 12:00 09/12/18 12:04 09/12/18 12:47 Temperature 98.1 F Pulse Rate 67 68 Respiratory Rate 16 22 Blood Pressure 168/69 H Pulse Oximetry 93 L 09/12/18 14:00 09/12/18 14:09 09/12/18 15:48 Temperature Pulse Rate 63 65 84 Respiratory Rate Blood Pressure Pulse Oximetry 09/12/18 16:30 09/12/18 17:00 09/12/18 17:23 Temperature 98.0 F Pulse Rate 62 61 81 Respiratory Rate 18 Blood Pressure 132/63 Pulse Oximetry 95 09/12/18 19:24 09/12/18 20:00 09/12/18 21:22 Temperature 98.3 F Pulse Rate 70 81 Respiratory Rate 18 18 Blood Pressure 150/70 H Pulse Oximetry 95 97 09/12/18 21:30 09/12/18 22:00 09/12/18 23:00 Temperature Pulse Rate 68 71 Respiratory Rate 18 Blood Pressure Pulse Oximetry 09/13/18 00:00 09/13/18 01:00 09/13/18 02:00 Temperature 98.1 F Pulse Rate 71 75 71 Respiratory Rate 16 16 Blood Pressure 143/59 H Pulse Oximetry 97 09/13/18 03:00 09/13/18 04:00 09/13/18 06:00 Temperature 97.9 F Pulse Rate 78 81 84 Respiratory Rate 16 Blood Pressure 165/57 H Pulse Oximetry 96 Intake & Output 09/12/18 09/13/18 09/13/18 18:59 06:59 18:59 Intake Total 620 / 620 240 / 240 Output Total 60 / 60 150 / 150 Balance 560 / 560 90 / 90 Intake: Oral 620 / 620 240 / 240 Output: Urine 60 / 60 150 / 150 Other: Date of Last Bowel Movement 09/10/18 09/10/18 Narrative: GENERAL: Lethargic, arouses but then falls back to sleep. SKIN: Warm and dry. NECK: Supple, trachea midline. Mild JVD distention. CARDIOVASCULAR: Regular rate and rhythm without murmurs, gallops, or rubs. Right AVG. RESPIRATORY: Breath sounds equal bilaterally. No accessory muscle use. GASTROINTESTINAL: Abdomen soft, non-tender, nondistended. MUSCULOSKELETAL: No cyanosis. 1 + Edema. BACK: Nontender without obvious deformity. No CVA tenderness. <Jessica Clemons - Last Filed: 09/13/18 09:40> Vital signs: Vital Signs 09/14/18 22:00 09/14/18 22:57 09/14/18 23:00 Temperature Pulse Rate 70 69 67 Respiratory Rate 17 Blood Pressure Pulse Oximetry 09/15/18 00:00 09/15/18 01:00 09/15/18 02:00 Temperature 98.4 F Pulse Rate 66 66 66 Respiratory Rate 22 Blood Pressure 159/71 H Pulse Oximetry 97 09/15/18 02:57 09/15/18 03:00 09/15/18 04:00 Temperature 97.9 F Pulse Rate 67 66 68 Respiratory Rate 15 22 Blood Pressure 161/72 H Pulse Oximetry 96 09/15/18 05:00 09/15/18 06:00 09/15/18 07:00 Temperature Pulse Rate 68 69 70 Respiratory Rate Blood Pressure Pulse Oximetry 09/15/18 07:56 09/15/18 08:00 09/15/18 09:00 Temperature 97.3 F L Pulse Rate 70 70 70 Respiratory Rate 18 Blood Pressure 158/71 H Pulse Oximetry 97 09/15/18 10:00 09/15/18 11:00 09/15/18 11:02 Temperature Pulse Rate 70 81 Respiratory Rate Blood Pressure Pulse Oximetry 97 09/15/18 11:18 09/15/18 12:00 09/15/18 13:00 Temperature 97.3 F L Pulse Rate 81 80 80 Respiratory Rate 18 Blood Pressure 155/68 H Pulse Oximetry 98 09/15/18 14:00 09/15/18 15:00 09/15/18 15:16 Temperature 97.3 F L Pulse Rate 64 65 67 Respiratory Rate 18 Blood Pressure 156/69 H Pulse Oximetry 94 L 09/15/18 15:20 09/15/18 16:00 09/15/18 16:19 Temperature Pulse Rate 64 Respiratory Rate 18 Blood Pressure Pulse Oximetry 96 09/15/18 17:00 09/15/18 17:29 09/15/18 18:00 Temperature Pulse Rate 80 66 Respiratory Rate Blood Pressure Pulse Oximetry 96 09/15/18 19:00 09/15/18 20:25 Temperature 98.0 F Pulse Rate 71 67 Respiratory Rate 16 20 Blood Pressure 136/60 Pulse Oximetry 94 L Intake & Output 09/15/18 09/15/18 09/16/18 06:59 18:59 06:59 Intake Total 480 / 480 1200 / 1200 Output Total 0 / 0 Balance 480 / 480 1200 / 1200 Weight 64.5 kg Intake: Oral 480 / 480 1200 / 1200 Output: Urine 0 / 0 Other: Date of Last Bowel Movement 09/13/18 09/13/18 09/13/18 <Des Toro - Last Filed: 09/16/18 17:48> Assessment and Plan - Assessment (1) ESRD (end stage renal disease) on dialysis Code(s): N18.6 - End stage renal disease; Z99.2 - Dependence on renal dialysis Status: Acute Plan: ESRD on hemodialysis on Wednesday, Wednesday and Wednesday. AVG right upper arm Plan Continue Renal, high protein diet. Continue PhosLo. Epogen ordered with dialysis. Hemodialysis yesterday with removal of 3 liters of fluid Hypoglycemic this morning, D5 infusing and D50 given, patient is lethargic blood sugar has improved. Hemodialysis planned for today. (2) Fluid overload Code(s): E87.70 - Fluid overload, unspecified Status: Acute Qualifiers: Hypervolemia type: unspecified Qualified Code(s): E87.70 - Fluid overload, unspecified Plan: Continue Bumex (3) Hypertension Code(s): I10 - Essential (primary) hypertension Status: Acute Plan: On Coreg and nifedipine. Will monitor <Jessica Clemons - Last Filed: 09/13/18 09:40> - Assessment (1) ESRD (end stage renal disease) on dialysis Code(s): N18.6 - End stage renal disease; Z99.2 - Dependence on renal dialysis Status: Acute Plan: Patient seen and examine, agree with above. HD was done yesterday, BS was low started on D50W. (2) Fluid overload Code(s): E87.70 - Fluid overload, unspecified Status: Acute Qualifiers: Hypervolemia type: unspecified Qualified Code(s): E87.70 - Fluid overload, unspecified (3) Hypertension Code(s): I10 - Essential (primary) hypertension Status: Acute <Des oTro - Last Filed: 09/16/18 17:48>
--- NOTE | 2018-09-13 09:54 | XR ---
EXAM DATE: 09/13/2018 12:00 AM EDT AGE/SEX: 67 years / Female INDICATIONS: Pleural effusion. CLINICAL DATA: This is the patient's initial encounter. Patient reports that signs and symptoms have been present for 4 - 6 days and indicates a pain score of Nonresponsive. MEDICAL/SURGICAL HISTORY: Cardiovascular disease. Hypertension. COPD, diabetes Hysterectomy. section. Appendectomy. COMPARISON: [facility] [place], CHEST 1V SINGLE AP, 09/11/2018. . FINDINGS: Stable small to moderate-sized left-sided pleural effusion with associated left lower lobe airspace disease. Progression of right-sided pleural effusion now [id number] in size with asso ciated airspace disease in the right lower lung zone. Cardiomediastinal contours are stable. There is diffuse interstitial prominence with indistinct central pulmonary vascularity. The main of exam is u nchanged. CONCLUSION: 1. Stable moderate left pleural effusion and associated left lower lobe airspace disease. 2. Worsening right-sided pleural effusion, now [id number] in size, with associated right lowe r lobe airspace disease. 3. Persistent positive fluid balance. Electronically signed by: Eric Pham MD 09/13/2018 9:52 AM EDT
[2018-09-13 12:02] LABS: Magnesium 2.1 mg/dL (1.5-2.5); Phosphorus 3.5 mg/dL (2.5-4.9)
[2018-09-13 12:12] LABS: Carbon Dioxide 28.3 meq/L (21.0-32.0); Potassium 3.6 meq/L (3.5-5.1)
[2018-09-13] MEDS: Calcium Acetate 667 MG Capsule PO SCH ×3 (14:17→18:40)
[2018-09-13] MEDS: Budesonide-Formoterol 160/4.5 MCG 6 GM Inhaler INH SCH ×2 (14:17→21:14)
--- NOTE | 2018-09-13 14:54 | P.CONCA ---
History of Present Illness Service: Cardiology Consult date: 09/13/18 Requesting Physician: Faustino Galan Reason for Consult: Atrial flutter and coronary artery disease Primary Care Provider: No Primary Care Physician History of Present Illness: This is a 67-year-old female known to Dr. Reddy with a history of myocardial infarction, hypertension, coronary artery disease with stent placement, congestive heart failure, chronic obstructive pulmonary disease, diabetes, chronic kidney disease on hemodialysis Wednesday, Wednesdays and Fridays , and dyslipidemia. She states that 4 days ago she started to develop shortness of breath that progressively worsened with no relief after using her home nebulizer. On 11 September she came to the emergency department for further evaluation and treatment. She denied any chest pain, pressure, palpitations or dizziness during this time. Currently she denies any chest pain, pressure, palpitations or dizziness. She does complain of shortness of breath that has greatly improved since her admission. Review of Systems All other systems reviewed negative except as stated in HPI PMFSH - History History Provided By: Patient - Medical History Medical History: Medical History (Last Reviewed 09/11/18 @ 03:41 by Linwood Shin) A-V fistula Anemia CAD (coronary artery disease) CAD (coronary artery disease) CHF (congestive heart failure) CHF (congestive heart failure) COPD (chronic obstructive pulmonary disease) COPD (chronic obstructive pulmonary disease) Chronic back pain Diabetes Diabetes ESRD (end stage renal disease) on dialysis End stage kidney disease HLD (hyperlipidemia) Hemodialysis access, AV graft Hemodialysis access, AV graft Hyperkalemia Hypertension Hypoxia - Surgical History Surgical History: Surgical History (Last Reviewed 09/11/18 @ 03:41 by Linwood Shin) H/O laminectomy H/O vaginal hysterectomy H/O: History of laser refractive surgery History of tonsillectomy Hx of appendectomy Hx of heart artery stent Stented coronary artery - Family History Family History: Family History (Last Reviewed 09/02/18 @ 12:33 by Jessica Edwards) Other ALS (amyotrophic lateral sclerosis) Multiple sclerosis - Tobacco History Second Hand Smoke Exposure: No Tobacco Use In Past 30 Days: No Smoking Status: Former smoker Tobacco Type: Cigarettes Packs Per Day: 1 (1ppd) Years Smoked: 35 Smoking End Date: The patient reports that she quit smoking 16 years ago. - Alcohol History How Often Do You Have a Drink Containing Alcohol: Monthly or less - Substance Use History Substance History: No History of Abuse - Travel History Recent Travel in the [place] Within the Last 8 Weeks: No Recent Travel Out of the Country Within the Last 8 Weeks: No - Immunization History Tetanus Immunization: Unsure Hx Influenza Vaccine This Season: Yes Medications and Allergies Allergies Allergy/AdvReac Type Severity Reaction Status Date / Time propoxyphene Allergy Intermediate RASH Verified 07/18/18 07:41 Home Medications Medication Instructions Recorded Confirmed Type albuterol sulfate [Ventolin HFA] 2 puff INHALATION Q6H PRN 06/03/18 09/11/18 History aspirin 81 mg PO DAILY 06/03/18 09/11/18 History budesonide-formoterol [Symbicort] 2 puff INHALATION BID 06/03/18 09/11/18 History atorvastatin 80 mg PO HS 08/30/18 09/11/18 History insulin detemir U-100 [Levemir 20 unit SUBCUT BID 08/30/18 09/11/18 History FlexTouch U-100 Insuln] mupirocin 1 applic TOPICAL BID 08/30/18 09/11/18 History prasugrel 10 mg PO DAILY 08/30/18 09/11/18 History vit B comp no.8-ublbz-[id number]-biotin 1 tab PO DAILY 08/30/18 09/11/18 History [Nephro-[facility]ita Rx] Active Medications: Active Medications Acetaminophen (Tylenol) 650 mg PO Q4H PRN PRN Reason: Temp > 100.4 OR PAIN 1-5 Last Admin: 09/11/18 21:37 Dose: 650 mg Acetaminophen (Tylenol) 650 mg PO UNSCH PRN PRN Reason: SEE LABEL COMMENTS Hydrocodone Bitart/Acetaminophen ([place] 5/325) 1 tab PO Q4H PRN PRN Reason: pain 1 to 10 Last Admin: 09/13/18 00:57 Dose: 1 tab Al Hydroxide/Mg Hydroxide (Milk Of Magnesia Liq) 30 ml PO Q12H PRN PRN Reason: Mild Constipation Albuterol (Duoneb Neb (Prn)) 1 ampul NEB Q4HR NEB PRN PRN Reason: SOB/WHEEZING Last Admin: 09/12/18 21:20 Dose: 1 ampul Aspirin (Ecotrin) 81 mg PO DAILY [facility] Last Admin: 09/13/18 09:46 Dose: 81 mg Atorvastatin Calcium (Lipitor) 80 mg PO [facility] Last Admin: 09/12/18 20:35 Dose: 80 mg Bisacodyl (Dulcolax Supp) 10 mg RECTAL DAILY PRN PRN Reason: SEVERE CONSITIPATION Budesonide/Formoterol Fumarate (Symbicort 160/4.5 Mcg Inh) 2 puff INH BID [facility] Last Admin: 09/13/18 14:17 Dose: Not Given Bumetanide (Bumex) 1 mg PO BID [facility] Last Admin: 09/13/18 09:26 Dose: Not Given Calcium Acetate (Phoslo) 667 mg PO TID [facility] Last Admin: 09/13/18 14:18 Dose: Not Given Carvedilol (Coreg) 6.25 mg PO BID [facility] Last Admin: 09/13/18 09:46 Dose: 6.25 mg Clonidine HCl (Catapres) 0.1 mg PO UNSCH PRN PRN Reason: SEE LABEL COMMENTS Dextrose (D50w Vial) 50 ml IV.PUSH UNSCH PRN PRN Reason: PER HYPOGLYCEMIA PROTOCOL Diphenhydramine HCl (Benadryl) 25 mg PO UNSCH PRN PRN Reason: SEE LABEL COMMENTS Epoetin Low (Epogen Inj) 6,000 unit IV.PUSH UNSCH PRN PRN Reason: SEE LABEL COMMENTS Gabapentin (Neurontin) 100 mg PO [facility] Last Admin: 09/12/18 20:35 Dose: 100 mg Gelatin (Gelfoam 12 Mm/7 Mm Topical) 1 foam TOPICAL PRN PRN PRN Reason: help stop bleeding from site Gentamicin Sulfate (Gentamicin Inj) 20 mg OTHER WITH DIALYSIS PRN PRN Reason: Dwell Gentamycin Lock Glucagon (Glucagon Inj) 1 mg OTHER PRN PRN PRN Reason: for Hypoglycemia Protocol Heparin Sodium (Porcine) (Heparin Inj) 8,000 units OTHER WITH DIALYSIS PRN PRN Reason: for machine prime Heparin Sodium (Porcine) (Heparin Inj) 1,000 units OTHER WITH DIALYSIS PRN PRN Reason: Dwell Heparin to Fill Catheter Hydralazine HCl (Apresoline) 100 mg PO TID [facility] Last Admin: 09/13/18 14:17 Dose: 100 mg Albumin Human (Flexbumin 25% Inj) 100 mls @ 60 mls/hr IV.SIG WITH DIALYSIS PRN PRN Reason: hypotension / volume replace Sodium Chloride (Ns Inj) 1,000 mls @ 0 mls/hr OTHER .Q0M PRN PRN Reason: for prime and rinse back Sodium Chloride (Ns Inj) 1,000 mls @ 200 mls/hr OTHER .Q5H PRN PRN Reason: for dialyzer flush PRN Sodium Chloride (Ns Inj) 1,000 mls @ 0 mls/hr IV.CONT .Q0M PRN PRN Reason: hypotension / volume replace Dextrose (D5w Inj) 500 mls @ 75 mls/hr IV.CONT .Q6H40M [facility] Insulin Aspart (Novolog Insulin Correctional Sugar Inj) 0 unit SQ ACHS [facility]; Protocol Last Admin: 09/13/18 14:17 Dose: Not Given Lactulose (Lactulose Liq) 30 ml PO DAILY PRN PRN Reason: SEVERE CONSITIPATION Mannitol (Mannitol Inj) 12.5 gm IV.PUSH UNSCH PRN PRN Reason: hypotension / volume replace Nifedipine (Procardia Xl) 60 mg PO DAILY [facility] Last Admin: 09/13/18 09:59 Dose: 60 mg Nitroglycerin (Nitrostat Sl) 0.4 mg SL Q5M PRN PRN Reason: CHEST PAIN Ondansetron HCl (Zofran Inj) 4 mg IV.PUSH Q6H PRN PRN Reason: NAUSEA OR VOMITING Last Admin: 09/13/18 14:28 Dose: 4 mg Ondansetron HCl (Zofran Inj) 4 mg IV.PUSH UNSCH PRN PRN Reason: NAUSEA OR VOMITING Prasugrel (Effient) 10 mg PO DAILY [facility] Last Admin: 09/13/18 14:17 Dose: 10 mg Senna/Docusate Sodium (Jocelyn-Colace) 1 tab PO BID [facility] Last Admin: 09/13/18 09:46 Dose: 1 tab Sennosides (Senokot) 17.2 mg PO Q12H PRN PRN Reason: Moderate Constipation Sodium Chloride (Ns Flush) 5 ml IV.FLUSH PRN PRN PRN Reason: flush each lumen during HD Exam Vital signs: Vital Signs 09/12/18 15:48 09/12/18 16:30 09/12/18 17:00 Temperature 98.0 F Pulse Rate 84 62 61 Respiratory Rate 18 Blood Pressure 132/63 Pulse Oximetry 95 09/12/18 17:23 09/12/18 19:24 09/12/18 20:00 Temperature 98.3 F Pulse Rate 81 70 Respiratory Rate 18 Blood Pressure 150/70 H Pulse Oximetry 95 97 09/12/18 21:22 09/12/18 21:30 09/12/18 22:00 Temperature Pulse Rate 81 68 Respiratory Rate 18 18 Blood Pressure Pulse Oximetry 09/12/18 23:00 09/13/18 00:00 09/13/18 01:00 Temperature 98.1 F Pulse Rate 71 71 75 Respiratory Rate 16 Blood Pressure 143/59 H Pulse Oximetry 97 09/13/18 02:00 09/13/18 03:00 09/13/18 04:00 Temperature 97.9 F Pulse Rate 71 78 81 Respiratory Rate 16 16 Blood Pressure 165/57 H Pulse Oximetry 96 09/13/18 06:00 09/13/18 08:00 09/13/18 08:15 Temperature Pulse Rate 84 Respiratory Rate Blood Pressure 188/83 H Pulse Oximetry 96 09/13/18 09:00 09/13/18 11:01 09/13/18 11:30 Temperature 94.1 F L 94.5 F L Pulse Rate 75 76 Respiratory Rate 18 21 Blood Pressure 177/78 H 139/65 Pulse Oximetry 92 L 91 L 93 L 09/13/18 12:00 09/13/18 12:30 09/13/18 13:00 Temperature 95.2 F L 95.7 F L 96.3 F L Pulse Rate 78 79 79 Respiratory Rate 0 L 22 21 Blood Pressure 144/67 H 143/67 H 129/62 Pulse Oximetry 92 L 95 98 09/13/18 13:30 Temperature 96.8 F L Pulse Rate 80 Respiratory Rate 22 Blood Pressure 128/62 Pulse Oximetry 97 Intake & Output 09/12/18 09/13/18 09/13/18 18:59 06:59 18:59 Intake Total 620 / 620 240 / 240 Output Total 3060 / 3060 150 / 150 Balance -2440 / -2440 90 / 90 Intake: Oral 620 / 620 240 / 240 Output: Urine 60 / 60 150 / 150 Hemodialysis Amount 3000 / 3000 Other: Date of Last Bowel Movement 09/10/18 09/10/18 - Constitutional no acute distress - Routine HEENT Exam Head: Present: normocephalic Eye: Present: PERRL ENT: Present: mucous membranes moist - Routine Neck Exam Present: supple - Routine Respiratory Exam Present: decreased breath sounds, rhonchi, crackles, diminished air movement - Routine Cardiovascular Exam Present: S1, S2. Absent: murmur, gallop, rubs - Routine Abdominal Exam Present: normoactive bowel sounds - Routine Extremities Exam Present: edema, full ROM, pulses intact, normal capillary refill. Absent: cyanosis, clubbing Comments: Trace edema bilateral LE Right upper arm fistula. - Routine Skin Exam Present: intact - Routine Neurological Exam Present: oriented X3 Results 09/13/18 05:36 09/13/18 11:01 Cardiac Enzymes 09/12/18 Range/Units 06:27 AST 23 (15-37) U/L CBC 09/12/18 09/13/18 Range/Units 06:27 05:36 WBC 5.8 5.3 (4.0-11.0) th/mm3 RBC 3.40 L 4.46 (4.00-5.30) mil/mm3 Hgb 10.2 L 13.4 D (11.6-15.3) gm/dL Hct 31.7 L 41.6 (35.0-46.0) % Plt Count 234 303 (150-450) th/mm3 Neut # (Auto) 3.8 3.7 (1.8-7.7) th/mm3 Lymph # (Auto) 1.2 1.0 (1.0-4.8) th/mm3 [place] # (Auto) 0.6 0.4 (0.0-0.9) th/mm3 Eos # (Auto) 0.2 0.1 (0.0-0.4) th/mm3 Baso # (Auto) 0.1 0.1 (0.0-0.2) th/mm3 Comprehensive Metabolic Panel 09/12/18 09/13/18 09/13/18 Range/Units 06:27 05:36 11:01 Sodium 131 L 135 L 135 L (136-145) meq/L Potassium 3.6 3.5 3.6 (3.5-5.1) meq/L Chloride 95 L 98 97 L (98-107) meq/L Carbon Dioxide 23.0 27.8 28.3 (21.0-32.0) meq/L BUN 40 H 26 H 25 H (7-18) mg/dL Creatinine 2.93 H 2.21 H 2.38 H (0.50-1.00) mg/dL Calcium 8.7 9.4 9.0 (8.5-10.1) mg/dL AST 23 (15-37) U/L ALT 13 (10-53) U/L Alkaline Phosphatase 116 (45-117) U/L Total Protein 6.1 L (6.4-8.2) g/dL Albumin 1.9 L 2.3 L (3.4-5.0) g/dL Intake and Output 09/12/18 09/13/18 09/13/18 22:59 06:59 14:59 Intake Total 620 / 620 240 / 240 Output Total 3060 / 3060 150 / 150 Balance -2440 / -2440 90 / 90 Intake: Oral 620 / 620 240 / 240 Output: Urine 60 / 60 150 / 150 Hemodialysis Amount 3000 / 3000 Other: Date of Last Bowel Movement 09/10/18 09/10/18 - Imaging and Cardiology Imaging: Impressions Chest X-Ray 09/13/18 00:00 CONCLUSION: 1. Stable moderate left pleural effusion and associated left lower lobe airspace disease. 2. Worsening right-sided pleural effusion, now [id number] in size, with associated right lower lobe airspace disease. 3. Persistent positive fluid balance. Assessment and Plan - Assessment (1) DKA (diabetic ketoacidoses) Code(s): E13.10 - Other specified diabetes mellitus with ketoacidosis without coma Status: Acute (2) Acute UTI Code(s): N39.0 - Urinary tract infection, site not specified Status: Acute (3) ESRD (end stage renal disease) on dialysis Code(s): N18.6 - End stage renal disease; Z99.2 - Dependence on renal dialysis Status: Acute (4) Diabetes Code(s): E11.9 - Type 2 diabetes mellitus without complications Status: Acute (5) Hypertension Code(s): I10 - Essential (primary) hypertension Status: Acute (6) Pain and swelling of right upper extremity Code(s): M79.601 - Pain in right arm; M79.89 - Other specified soft tissue disorders Status: Acute (7) Fluid overload Code(s): E87.70 - Fluid overload, unspecified Status: Acute - Plan Telemetry shows no evidence of atrial arrhythmias, what appears to be atrial flutter is artifact caused by electromagnetic interference. Continue with current cardiac treatment plan. Patient is to receive dialysis tomorrow, nephrology evaluation in progress for end-stage renal disease. Pulmonology evaluation in progress. We will continue to follow the patient during her hospitalization and follow-up in our office post discharge. Patient was seen and evaluated by Dr. Reddy who participated in care, management and decision-making. - Attending Attestation Patient seen and examined. I reviewed and agree with the evaluation and plan as presented. Continue ICU care. No evidence of significant arrhythmias. (1) DKA (diabetic ketoacidoses) Qualifiers: Diabetes mellitus type: type 2 Diabetes mellitus complication detail: without coma Qualified Code(s): E11.10 - Type 2 diabetes mellitus with ketoacidosis without coma (4) Diabetes Qualifiers: Diabetes mellitus fci insulin use: with fci use (7) Fluid overload Qualifiers: Hypervolemia type: unspecified Qualified Code(s): E87.70 - Fluid overload, unspecified
--- NOTE | 2018-09-13 16:13 | ECG ---
Date Performed: 09/13/2018 Time Performed: 09:12:57 PTAGE: 67 years EKG: Sinus rhythm WITH SHORT MD INTERVAL MODERATE INTRAVENTRICULAR CONDUCTION DELAY Since previous tracing, no signifi cant change noted ABNORMAL ECG PREVIOUS TRACING : 09/11/2018 03.24 DOCTOR: Michael Colon Interpretating Date/Time 09/13/2018 16:11:16
--- NOTE | 2018-09-13 17:39 | P.PNPL ---
Subjective Interval history: 67 YOWF with CHF,COPD, ch pl eff, DM Admitted with SOB developed hypoglycemia and hypothermia Transferred to [facility] On warming blanket Tired, weak Physical Exam Vital signs: Vital Signs 09/12/18 19:24 09/12/18 20:00 09/12/18 21:22 Temperature 98.3 F Pulse Rate 70 81 Respiratory Rate 18 18 Blood Pressure 150/70 H Pulse Oximetry 95 97 09/12/18 21:30 09/12/18 22:00 09/12/18 23:00 Temperature Pulse Rate 68 71 Respiratory Rate 18 Blood Pressure Pulse Oximetry 09/13/18 00:00 09/13/18 01:00 09/13/18 02:00 Temperature 98.1 F Pulse Rate 71 75 71 Respiratory Rate 16 16 Blood Pressure 143/59 H Pulse Oximetry 97 09/13/18 03:00 09/13/18 04:00 09/13/18 06:00 Temperature 97.9 F Pulse Rate 78 81 84 Respiratory Rate 16 Blood Pressure 165/57 H Pulse Oximetry 96 09/13/18 08:00 09/13/18 08:15 09/13/18 09:00 Temperature Pulse Rate Respiratory Rate Blood Pressure 188/83 H 177/78 H Pulse Oximetry 96 92 L 09/13/18 11:01 09/13/18 11:30 09/13/18 12:00 Temperature 94.1 F L 94.5 F L 95.2 F L Pulse Rate 75 76 78 Respiratory Rate 18 21 0 L Blood Pressure 139/65 144/67 H Pulse Oximetry 91 L 93 L 92 L 09/13/18 12:30 09/13/18 13:00 09/13/18 13:30 Temperature 95.7 F L 96.3 F L 96.8 F L Pulse Rate 79 79 80 Respiratory Rate 22 21 22 Blood Pressure 143/67 H 129/62 128/62 Pulse Oximetry 95 98 97 09/13/18 14:00 09/13/18 14:30 09/13/18 15:00 Temperature 97.5 F L 97.9 F 98.1 F Pulse Rate 81 67 82 Respiratory Rate 17 21 20 Blood Pressure 121/59 L 137/58 L 115/58 L Pulse Oximetry 95 99 09/13/18 15:30 09/13/18 16:00 Temperature 98.1 F 98.2 F Pulse Rate 81 82 Respiratory Rate 18 18 Blood Pressure 126/56 L 124/58 L Pulse Oximetry 96 95 Intake & Output 09/12/18 09/13/18 09/13/18 18:59 06:59 18:59 Intake Total 620 / 620 240 / 240 Output Total 3060 / 3060 150 / 150 Balance -2440 / -2440 90 / 90 Intake: Oral 620 / 620 240 / 240 Output: Urine 60 / 60 150 / 150 Hemodialysis Amount 3000 / 3000 Other: Date of Last Bowel Movement 09/10/18 09/10/18 09/13/18 GENERAL: Elderly WF, weak, mild sob. SKIN: Warm and dry. HEAD: Normocephalic. EYES: No scleral icterus. No injection or drainage. NECK: Supple, trachea midline. No JVD or lymphadenopathy. CARDIOVASCULAR: Regular rate and rhythm without murmurs, gallops, or rubs. RESPIRATORY: Breath sounds equal bilaterally. No accessory muscle use. GASTROINTESTINAL: Abdomen soft, non-tender, nondistended. MUSCULOSKELETAL: No cyanosis, or edema. BACK: Nontender without obvious deformity. No CVA tenderness. Assessment and Plan - Plan IMPRESSION: 1. Respiratory failure. 2. Hypoxia. 3. Morbid obesity. 4. Likely sleep apnea. 5. Osteomyelitis. 6. Pneumonia. 7. Pulmonary edema. 8. Renal insufficiency. PLAN: Supplement [address] effusion, stable Diurease with Bumex Hemodialysis If effusion increases, will need US guided Thoracentesis.
[2018-09-13] MEDS: Gabapentin 100 MG Capsule PO SCH (21:13)
[2018-09-13 22:27] LABS: Hemoglobin A1c 10.8 % (4.3-6.0)
--- NOTE | 2018-09-14 10:30 | P.PNNP ---
Subjective Interval history: Reports feeling better today. Continues to have shortness of breath but improving. Seen during hemodialysis, tolerating well. <Jessica Clemons - Last Filed: 09/14/18 10:27> Physical Exam Vital signs: Vital Signs 09/13/18 11:01 09/13/18 11:30 09/13/18 12:00 Temperature 94.1 F L 94.5 F L 95.2 F L Pulse Rate 75 76 78 Respiratory Rate 18 21 0 L Blood Pressure 139/65 144/67 H Pulse Oximetry 91 L 93 L 92 L 09/13/18 12:30 09/13/18 13:00 09/13/18 13:30 Temperature 95.7 F L 96.3 F L 96.8 F L Pulse Rate 79 79 80 Respiratory Rate 22 21 22 Blood Pressure 143/67 H 129/62 128/62 Pulse Oximetry 95 98 97 09/13/18 14:00 09/13/18 14:30 09/13/18 15:00 Temperature 97.5 F L 97.9 F 98.1 F Pulse Rate 81 67 82 Respiratory Rate 17 21 20 Blood Pressure 121/59 L 137/58 L 115/58 L Pulse Oximetry 95 99 09/13/18 15:30 09/13/18 16:00 09/13/18 16:30 Temperature 98.1 F 98.2 F 98.4 F Pulse Rate 81 82 82 Respiratory Rate 18 18 19 Blood Pressure 126/56 L 124/58 L 130/61 Pulse Oximetry 96 95 95 09/13/18 17:00 09/13/18 17:30 09/13/18 18:00 Temperature 98.6 F 98.8 F 99.0 F Pulse Rate 82 83 82 Respiratory Rate 23 21 20 Blood Pressure 136/64 137/64 135/63 Pulse Oximetry 95 98 98 09/13/18 18:30 09/13/18 19:00 09/13/18 19:30 Temperature 99.1 F 99.1 F 99.1 F Pulse Rate 82 82 82 Respiratory Rate 20 17 20 Blood Pressure 116/58 L 113/57 L 126/59 L Pulse Oximetry 96 95 96 09/13/18 20:00 09/13/18 20:30 09/13/18 21:00 Temperature 99.0 F 99.0 F 99.0 F Pulse Rate 82 82 82 Respiratory Rate 19 18 18 Blood Pressure 127/58 L 130/60 135/63 Pulse Oximetry 96 98 99 09/13/18 21:30 09/13/18 22:00 09/13/18 22:30 Temperature 98.8 F 98.8 F 99.0 F Pulse Rate 82 81 81 Respiratory Rate 14 15 19 Blood Pressure 129/61 131/60 129/61 Pulse Oximetry 94 L 97 95 09/13/18 22:57 09/13/18 23:00 09/13/18 23:30 Temperature 99.0 F 99.0 F Pulse Rate 74 82 81 Respiratory Rate 21 19 17 Blood Pressure 122/60 121/59 L Pulse Oximetry 98 97 97 09/14/18 00:00 09/14/18 00:30 09/14/18 01:00 Temperature 99.0 F 99.0 F 99.0 F Pulse Rate 81 82 82 Respiratory Rate 16 16 16 Blood Pressure 126/60 123/60 137/61 Pulse Oximetry 99 95 100 09/14/18 01:30 09/14/18 02:00 09/14/18 02:30 Temperature 99.0 F 99.0 F Pulse Rate 82 82 80 Respiratory Rate 17 17 15 Blood Pressure 135/63 126/60 140/65 Pulse Oximetry 97 91 L 99 09/14/18 03:00 09/14/18 03:30 09/14/18 04:00 Temperature 98.3 F Pulse Rate 80 80 80 Respiratory Rate 16 20 16 Blood Pressure 143/63 H 147/66 H 156/67 H Pulse Oximetry 100 100 98 09/14/18 04:30 09/14/18 05:00 09/14/18 05:30 Temperature Pulse Rate 79 79 79 Respiratory Rate 14 3 L 4 L Blood Pressure 149/67 H 161/67 H 166/72 H Pulse Oximetry 98 98 98 09/14/18 05:51 09/14/18 06:00 09/14/18 06:30 Temperature Pulse Rate 78 78 66 Respiratory Rate 20 0 L 0 L Blood Pressure 154/69 H 148/65 H 154/68 H Pulse Oximetry 97 97 100 09/14/18 07:00 09/14/18 07:30 09/14/18 08:00 Temperature 96.7 F L Pulse Rate 67 78 78 Respiratory Rate 0 L 15 19 Blood Pressure 162/71 H 156/67 H 160/71 H Pulse Oximetry 98 97 92 L 09/14/18 08:17 09/14/18 08:30 09/14/18 09:00 Temperature Pulse Rate 77 77 Respiratory Rate 20 13 24 Blood Pressure 159/67 H 157/68 H Pulse Oximetry 96 95 09/14/18 09:15 09/14/18 09:30 09/14/18 09:45 Temperature Pulse Rate 77 77 78 Respiratory Rate 14 15 23 Blood Pressure 158/69 H 144/64 H 151/67 H Pulse Oximetry 97 96 98 09/14/18 10:00 09/14/18 10:15 Temperature Pulse Rate 78 79 Respiratory Rate 15 16 Blood Pressure 144/65 H 156/70 H Pulse Oximetry 98 98 Intake & Output 09/13/18 09/14/18 09/14/18 18:59 06:59 18:59 Intake Total 120 / 120 480 / 480 Output Total 200 / 200 0 / 0 Balance -80 / -80 480 / 480 Weight 65 kg Intake: Oral 120 / 120 480 / 480 Output: Urine 0 / 0 0 / 0 Emesis 200 / 200 Other: Date of Last Bowel Movement 09/13/18 09/14/18 # Bowel Movements 2 2 # Emeses 2 Narrative: GENERAL: Lethargic, arouses but then falls back to sleep. SKIN: Warm and dry. NECK: Supple, trachea midline. Mild JVD distention. CARDIOVASCULAR: Regular rate and rhythm without murmurs, gallops, or rubs. Right AVG. RESPIRATORY: Breath sounds equal bilaterally. No accessory muscle use. GASTROINTESTINAL: Abdomen soft, non-tender, nondistended. MUSCULOSKELETAL: No cyanosis. 1 + Edema. BACK: Nontender without obvious deformity. No CVA tenderness. <Jessica Clemons - Last Filed: 09/14/18 10:27> Vital signs: Vital Signs 09/18/18 17:00 09/18/18 18:00 09/18/18 19:00 Temperature 98.3 F Pulse Rate 68 70 72 Respiratory Rate 20 Blood Pressure 162/70 H Pulse Oximetry 90 L 09/18/18 20:00 09/18/18 21:00 09/18/18 21:44 Temperature Pulse Rate 72 74 Respiratory Rate Blood Pressure Pulse Oximetry 95 09/18/18 22:00 09/18/18 23:00 09/19/18 00:00 Temperature 98.4 F Pulse Rate 72 75 74 Respiratory Rate 16 Blood Pressure 155/70 H Pulse Oximetry 92 L 09/19/18 01:00 09/19/18 02:00 09/19/18 03:00 Temperature 98.4 F Pulse Rate 72 72 71 Respiratory Rate 16 Blood Pressure 169/72 H Pulse Oximetry 93 L 09/19/18 04:00 09/19/18 05:00 09/19/18 06:00 Temperature Pulse Rate 72 70 66 Respiratory Rate Blood Pressure Pulse Oximetry 09/19/18 07:00 09/19/18 08:33 09/19/18 09:00 Temperature 98.7 F Pulse Rate 67 64 Respiratory Rate 17 Blood Pressure 174/75 H Pulse Oximetry 94 L 95 09/19/18 13:00 09/19/18 14:00 09/19/18 15:00 Temperature 98 F Pulse Rate 63 65 68 Respiratory Rate 18 Blood Pressure 148/70 H Pulse Oximetry 99 09/19/18 16:00 Temperature Pulse Rate 62 Respiratory Rate Blood Pressure Pulse Oximetry Intake & Output 09/18/18 09/19/18 09/19/18 18:59 06:59 18:59 Intake Total 960 / 960 480 / 480 Output Total 50 / 50 200 / 200 Balance 910 / 910 280 / 280 Weight 65.5 kg Intake: Oral 960 / 960 480 / 480 Output: Urine 50 / 50 200 / 200 Other: Date of Last Bowel Movement 09/17/18 09/17/18 <Des Toro - Last Filed: 09/19/18 17:00> Assessment and Plan - Assessment (1) ESRD (end stage renal disease) on dialysis Code(s): N18.6 - End stage renal disease; Z99.2 - Dependence on renal dialysis Status: Acute Plan: ESRD on hemodialysis on Wednesday, Wednesday and Wednesday. AVG right upper arm Plan Continue Renal, high protein diet. Continue PhosLo. Epogen ordered with dialysis. Hemodialysis today, 3 K bath, plan to remove 3 liters. (2) Fluid overload Code(s): E87.70 - Fluid overload, unspecified Status: Acute Qualifiers: Hypervolemia type: unspecified Qualified Code(s): E87.70 - Fluid overload, unspecified Plan: Continue Bumex Shortness of breath improving. (3) Hypertension Code(s): I10 - Essential (primary) hypertension Status: Acute Plan: Better controlled with fluid removal. On Coreg, hydralazine, and nifedipine. Will monitor <Jessica Clemons - Last Filed: 09/14/18 10:27> - Assessment (1) ESRD (end stage renal disease) on dialysis Code(s): N18.6 - End stage renal disease; Z99.2 - Dependence on renal dialysis Status: Acute Plan: Patient seen an examined, agree with above. HD today, will remove fluid as tolerated. (2) Fluid overload Code(s): E87.70 - Fluid overload, unspecified Status: Acute Qualifiers: Hypervolemia type: unspecified Qualified Code(s): E87.70 - Fluid overload, unspecified (3) Hypertension Code(s): I10 - Essential (primary) hypertension Status: Acute <Des Toro - Last Filed: 09/19/18 17:00>
[2018-09-14] MEDS: Insulin NovoLOG Aspart Correctional Sugar Inj SQ SCH ×4 (12:15→22:04)
[2018-09-14] MEDS: Budesonide-Formoterol 160/4.5 MCG 6 GM Inhaler INH SCH ×2 (13:08→20:52)
[2018-09-14] MEDS: Senna/Docusate Sodium 8.6/50 MG Tablet PO SCH ×2 (13:08→20:51)
[2018-09-14] MEDS: Calcium Acetate 667 MG Capsule PO SCH ×2 (13:08→18:01)
[2018-09-14] MEDS: Carvedilol 6.25 MG Tablet PO SCH ×2 (13:08→20:51)
--- NOTE | 2018-09-14 13:20 | P.PNIM ---
Subjective Interval history: Patient complains of worsening pain on her right thumb. She otherwise feels much better today. Physical Exam Vital signs: Vital Signs 09/13/18 13:30 09/13/18 14:00 09/13/18 14:30 Temperature 96.8 F L 97.5 F L 97.9 F Pulse Rate 80 81 67 Respiratory Rate 22 17 21 Blood Pressure 128/62 121/59 L 137/58 L Pulse Oximetry 97 95 09/13/18 15:00 09/13/18 15:30 09/13/18 16:00 Temperature 98.1 F 98.1 F 98.2 F Pulse Rate 82 81 82 Respiratory Rate 20 18 18 Blood Pressure 115/58 L 126/56 L 124/58 L Pulse Oximetry 99 96 95 09/13/18 16:30 09/13/18 17:00 09/13/18 17:30 Temperature 98.4 F 98.6 F 98.8 F Pulse Rate 82 82 83 Respiratory Rate 19 23 21 Blood Pressure 130/61 136/64 137/64 Pulse Oximetry 95 95 98 09/13/18 18:00 09/13/18 18:30 09/13/18 19:00 Temperature 99.0 F 99.1 F 99.1 F Pulse Rate 82 82 82 Respiratory Rate 20 20 17 Blood Pressure 135/63 116/58 L 113/57 L Pulse Oximetry 98 96 95 09/13/18 19:30 09/13/18 20:00 09/13/18 20:30 Temperature 99.1 F 99.0 F 99.0 F Pulse Rate 82 82 82 Respiratory Rate 20 19 18 Blood Pressure 126/59 L 127/58 L 130/60 Pulse Oximetry 96 96 98 09/13/18 21:00 09/13/18 21:30 09/13/18 22:00 Temperature 99.0 F 98.8 F 98.8 F Pulse Rate 82 82 81 Respiratory Rate 18 14 15 Blood Pressure 135/63 129/61 131/60 Pulse Oximetry 99 94 L 97 09/13/18 22:30 09/13/18 22:57 09/13/18 23:00 Temperature 99.0 F 99.0 F Pulse Rate 81 74 82 Respiratory Rate 19 21 19 Blood Pressure 129/61 122/60 Pulse Oximetry 95 98 97 09/13/18 23:30 09/14/18 00:00 09/14/18 00:30 Temperature 99.0 F 99.0 F 99.0 F Pulse Rate 81 81 82 Respiratory Rate 17 16 16 Blood Pressure 121/59 L 126/60 123/60 Pulse Oximetry 97 99 95 09/14/18 01:00 09/14/18 01:30 09/14/18 02:00 Temperature 99.0 F 99.0 F 99.0 F Pulse Rate 82 82 82 Respiratory Rate 16 17 17 Blood Pressure 137/61 135/63 126/60 Pulse Oximetry 100 97 91 L 09/14/18 02:30 09/14/18 03:00 09/14/18 03:30 Temperature Pulse Rate 80 80 80 Respiratory Rate 15 16 20 Blood Pressure 140/65 143/63 H 147/66 H Pulse Oximetry 99 100 100 09/14/18 04:00 09/14/18 04:30 09/14/18 05:00 Temperature 98.3 F Pulse Rate 80 79 79 Respiratory Rate 16 14 3 L Blood Pressure 156/67 H 149/67 H 161/67 H Pulse Oximetry 98 98 98 09/14/18 05:30 09/14/18 05:51 09/14/18 06:00 Temperature Pulse Rate 79 78 78 Respiratory Rate 4 L 20 0 L Blood Pressure 166/72 H 154/69 H 148/65 H Pulse Oximetry 98 97 97 09/14/18 06:30 09/14/18 07:00 09/14/18 07:30 Temperature Pulse Rate 66 67 78 Respiratory Rate 0 L 0 L 15 Blood Pressure 154/68 H 162/71 H 156/67 H Pulse Oximetry 100 98 97 09/14/18 08:00 09/14/18 08:17 09/14/18 08:30 Temperature 96.7 F L Pulse Rate 78 77 Respiratory Rate 19 20 13 Blood Pressure 160/71 H 159/67 H Pulse Oximetry 92 L 96 09/14/18 09:00 09/14/18 09:15 09/14/18 09:30 Temperature Pulse Rate 77 77 77 Respiratory Rate 24 14 15 Blood Pressure 157/68 H 158/69 H 144/64 H Pulse Oximetry 95 97 96 09/14/18 09:45 09/14/18 10:00 09/14/18 10:15 Temperature Pulse Rate 78 78 79 Respiratory Rate 23 15 16 Blood Pressure 151/67 H 144/65 H 156/70 H Pulse Oximetry 98 98 98 09/14/18 10:30 09/14/18 10:45 09/14/18 11:00 Temperature Pulse Rate 79 79 79 Respiratory Rate 16 16 22 Blood Pressure 145/65 H 146/67 H 154/67 H Pulse Oximetry 99 98 96 09/14/18 11:15 09/14/18 11:30 09/14/18 11:45 Temperature Pulse Rate 79 79 62 Respiratory Rate 20 17 17 Blood Pressure 138/62 135/63 129/59 L Pulse Oximetry 96 97 97 09/14/18 12:00 09/14/18 13:00 Temperature 97.9 F Pulse Rate 65 78 Respiratory Rate 26 H 20 Blood Pressure 132/61 136/58 L Pulse Oximetry 93 L 93 L Intake & Output 09/13/18 09/14/18 09/14/18 18:59 06:59 18:59 Intake Total 120 / 120 480 / 480 Output Total 200 / 200 0 / 0 3250 / 3250 Balance -80 / -80 480 / 480 -3250 / -3250 Weight 65 kg Intake: Oral 120 / 120 480 / 480 Output: Urine 0 / 0 0 / 0 250 / 250 Emesis 200 / 200 Hemodialysis Amount 3000 / 3000 Other: Date of Last Bowel Movement 09/13/18 09/14/18 09/14/18 # Bowel Movements 2 2 # Emeses 2 Narrative: GENERAL: No acute distress SKIN: Warm and dry. NECK: Supple, trachea midline. Mild JVD distention. CARDIOVASCULAR: Regular rate and rhythm without murmurs, gallops, or rubs. Right AVG. RESPIRATORY: Air movement is fair. Diminished breath sounds at the bases bilaterally. GASTROINTESTINAL: Abdomen soft, non-tender, nondistended. MUSCULOSKELETAL: Right distal thump with small area of fluctuance with mild surrounding erythema. BACK: Nontender without obvious deformity. No CVA tenderness. Results - Labs CBC & Chem 7: 09/13/18 05:36 09/13/18 11:01 Laboratory Results - last 24 hr 09/13/18 09/13/18 09/13/18 05:36 15:48 16:42 POC Glucose 183 H 234 H Hemoglobin A1c 10.8 H 09/13/18 09/13/18 09/14/18 18:40 21:09 01:04 POC Glucose 224 H 252 H 336 H Hemoglobin A1c 09/14/18 11:32 POC Glucose 302 H Hemoglobin A1c Microbiology 09/11/18 04:00 Throat Group A Streptococcus Screen/Cult - Final No Beta Streptococci isolated. Assessment and Plan - Assessment (1) CHF (congestive heart failure) Code(s): I50.9 - Heart failure, unspecified Status: Acute (2) Pleural effusion Code(s): J90 - Pleural effusion, not elsewhere classified Status: Acute (3) Hypoxia Code(s): R09.02 - Hypoxemia Status: Acute (4) ESRD on dialysis Code(s): N18.6 - End stage renal disease; Z99.2 - Dependence on renal dialysis Status: Acute (5) DM (diabetes mellitus) Code(s): E11.9 - Type 2 diabetes mellitus without complications Status: Acute - Plan 67-year-old female on hemodialysis admitted with acute diastolic CHF. Patient is also a brittle diabetic who presented with blood sugar of 700. [place] [facility] [place] but had an acute hypoglycemic episode this morning. [place] [facility] CHF: Acute on Chronic. Diastolic. Echo 08/09/18 w/ EF 50-55%, BNP 2644, CXR w / chronic effusions, images reviewed. Continue home Bumex, monitor I/O, appreciate nephrology input. Dialysis as scheduled. Seems to be stable from a respiratory standpoint. Acute symptomatic hypoglycemia/DM: Brittle diabetic, presented with BS in the 700's. Glucose in the 20s on 09/13/18. Received Levemir the night before. Treated with D50 and IVF. - Continue SSI with accuchecks. - Diabetic diet. Consider resuming long acting tomorrow. CAD, abnormalities on tele with concerns for Atrial flutter: No cardiovascular complaints. Unsure if she has a history of Afib. - Patient evaluated by Cardiology, Dr. Reddy. tele findings believed to be artifacts - Continue Coreg, Effient, Statin. Monitor on Tele Pleural Effusion: recent admit w/ large left effusion s/p thoracentesis/chest tube, CXR w/ pleural effusions, left greater than right, however stable. -Pulmonology following - Continue current treatment. If Effusion stable. Right distal thumb abscess: - Getting worse - Will consult hand surgery for assistance. May benefit from I&D Hypoxemia: O2 sat 86% on RA upon arrival, O2 dependent at night per patient, currently O2 sat 94% on 4L NC, monitor closely. DuoNeb prn. -Respiratory status seems to be stable today. ESRD on HD: M/W/F -Appreciate nephrology following. DVT Prophylaxis: SCD/Teds Discharge Planning: Ok to transfer back to [facility].
[2018-09-14] MEDS ORDERED: Sodium Chloride 0.9% 2 ML Flush PRN IV.FLUSH (14:48)
--- NOTE | 2018-09-14 15:30 | P.PNCA ---
Subjective Interval history: Patient denies any chest pain, pressure, palpitations, dizziness, edema or shortness of breath. Patient is currently on dialysis and states that she is feeling much better. Medications and Allergies Allergies Allergy/AdvReac Type Severity Reaction Status Date / Time propoxyphene Allergy Intermediate RASH Verified 07/18/18 07:41 Home Medications Medication Instructions Recorded Confirmed Type albuterol sulfate [Ventolin HFA] 2 puff INHALATION Q6H PRN 06/03/18 09/11/18 History aspirin 81 mg PO DAILY 06/03/18 09/11/18 History budesonide-formoterol [Symbicort] 2 puff INHALATION BID 06/03/18 09/11/18 History atorvastatin 80 mg PO HS 08/30/18 09/11/18 History insulin detemir U-100 [Levemir 20 unit SUBCUT BID 08/30/18 09/11/18 History FlexTouch U-100 Insuln] mupirocin 1 applic TOPICAL BID 08/30/18 09/11/18 History prasugrel 10 mg PO DAILY 08/30/18 09/11/18 History vit B comp [id number] 1 tab PO DAILY 08/30/18 09/11/18 History [Nephro-[facility] Rx] Active Medications: Active Medications Acetaminophen (Tylenol) 650 mg PO Q4H PRN PRN Reason: Temp > 100.4 OR PAIN 1-5 Last Admin: 09/11/18 21:37 Dose: 650 mg Acetaminophen (Tylenol) 650 mg PO UNSCH PRN PRN Reason: SEE LABEL COMMENTS Hydrocodone Bitart/Acetaminophen ([place] 5/325) 1 tab PO Q4H PRN PRN Reason: pain 1 to 10 Last Admin: 09/14/18 12:55 Dose: 1 tab Al Hydroxide/Mg Hydroxide (Milk Of Magnesia Liq) 30 ml PO Q12H PRN PRN Reason: Mild Constipation Albuterol (Duoneb Neb (Prn)) 1 ampul NEB Q4HR NEB PRN PRN Reason: SOB/WHEEZING Last Admin: 09/13/18 22:56 Dose: 1 ampul Aspirin (Ecotrin) 81 mg PO DAILY [facility] Last Admin: 09/14/18 13:08 Dose: Not Given Atorvastatin Calcium (Lipitor) 80 mg PO HS [facility] Last Admin: 09/13/18 21:13 Dose: 80 mg Bisacodyl (Dulcolax Supp) 10 mg RECTAL DAILY PRN PRN Reason: SEVERE CONSITIPATION Budesonide/Formoterol Fumarate (Symbicort 160/4.5 Mcg Inh) 2 puff INH BID [facility] Last Admin: 09/14/18 13:08 Dose: Not Given Bumetanide (Bumex) 1 mg PO BID [facility] Last Admin: 09/14/18 13:07 Dose: Not Given Calcium Acetate (Phoslo) 667 mg PO TID [facility] Last Admin: 09/14/18 13:08 Dose: Not Given Carvedilol (Coreg) 6.25 mg PO BID [facility] Last Admin: 09/14/18 13:08 Dose: Not Given Clonidine HCl (Catapres) 0.1 mg PO UNSCH PRN PRN Reason: SEE LABEL COMMENTS Dextrose (D50w Vial) 50 ml IV.PUSH UNSCH PRN PRN Reason: PER HYPOGLYCEMIA PROTOCOL Last Admin: 09/13/18 09:00 Dose: 50 ml Diphenhydramine HCl (Benadryl) 25 mg PO UNSCH PRN PRN Reason: SEE LABEL COMMENTS Epoetin Low (Epogen Inj) 6,000 unit IV.PUSH UNSCH PRN PRN Reason: SEE LABEL COMMENTS Gabapentin (Neurontin) 100 mg PO [facility] Last Admin: 09/13/18 21:13 Dose: 100 mg Gelatin (Gelfoam 12 Mm/7 Mm Topical) 1 foam TOPICAL PRN PRN PRN Reason: help stop bleeding from site Gentamicin Sulfate (Gentamicin Inj) 20 mg OTHER WITH DIALYSIS PRN PRN Reason: Dwell Gentamycin Lock Glucagon (Glucagon Inj) 1 mg OTHER PRN PRN PRN Reason: for Hypoglycemia Protocol Heparin Sodium (Porcine) (Heparin Inj) 8,000 units OTHER WITH DIALYSIS PRN PRN Reason: for machine prime Heparin Sodium (Porcine) (Heparin Inj) 1,000 units OTHER WITH DIALYSIS PRN PRN Reason: Dwell Heparin to Fill Catheter Hydralazine HCl (Apresoline) 100 mg PO TID [facility] Last Admin: 09/14/18 12:05 Dose: Not Given Albumin Human (Flexbumin 25% Inj) 100 mls @ 60 mls/hr IV.SIG WITH DIALYSIS PRN PRN Reason: hypotension / volume replace Sodium Chloride (Ns Inj) 1,000 mls @ 0 mls/hr OTHER .Q0M PRN PRN Reason: for prime and rinse back Sodium Chloride (Ns Inj) 1,000 mls @ 200 mls/hr OTHER .Q5H PRN PRN Reason: for dialyzer flush PRN Sodium Chloride (Ns Inj) 1,000 mls @ 0 mls/hr IV.CONT .Q0M PRN PRN Reason: hypotension / volume replace Insulin Aspart (Novolog Insulin Correctional Sugar Inj) 0 unit SQ ACHS [facility]; Protocol Last Admin: 09/14/18 13:06 Dose: Not Given Lactulose (Lactulose Liq) 30 ml PO DAILY PRN PRN Reason: SEVERE CONSITIPATION Mannitol (Mannitol Inj) 12.5 gm IV.PUSH UNSCH PRN PRN Reason: hypotension / volume replace Nifedipine (Procardia Xl) 60 mg PO DAILY [facility] Last Admin: 09/14/18 13:08 Dose: Not Given Nitroglycerin (Nitrostat Sl) 0.4 mg SL Q5M PRN PRN Reason: CHEST PAIN Ondansetron HCl (Zofran Inj) 4 mg IV.PUSH Q6H PRN PRN Reason: NAUSEA OR VOMITING Last Admin: 09/13/18 14:28 Dose: 4 mg Ondansetron HCl (Zofran Inj) 4 mg IV.PUSH UNSCH PRN PRN Reason: NAUSEA OR VOMITING Prasugrel (Effient) 10 mg PO DAILY [facility] Last Admin: 09/14/18 13:08 Dose: Not Given Senna/Docusate Sodium (Jocelyn-Colace) 1 tab PO BID [facility] Last Admin: 09/14/18 13:08 Dose: Not Given Sennosides (Senokot) 17.2 mg PO Q12H PRN PRN Reason: Moderate Constipation Sodium Chloride (Ns Flush) 5 ml IV.FLUSH PRN PRN PRN Reason: flush each lumen during HD Sodium Chloride (Ns Flush) 2 ml IV.FLUSH BID [facility] Sodium Chloride (Ns Flush) 2 ml IV.FLUSH PRN PRN PRN Reason: FLUSH AFTER USING IV ACCESS Physical Exam Vital signs: Vital Signs 09/13/18 15:30 09/13/18 16:00 09/13/18 16:30 Temperature 98.1 F 98.2 F 98.4 F Pulse Rate 81 82 82 Respiratory Rate 18 18 19 Blood Pressure 126/56 L 124/58 L 130/61 Pulse Oximetry 96 95 95 09/13/18 17:00 09/13/18 17:30 09/13/18 18:00 Temperature 98.6 F 98.8 F 99.0 F Pulse Rate 82 83 82 Respiratory Rate 23 21 20 Blood Pressure 136/64 137/64 135/63 Pulse Oximetry 95 98 98 09/13/18 18:30 09/13/18 19:00 09/13/18 19:30 Temperature 99.1 F 99.1 F 99.1 F Pulse Rate 82 82 82 Respiratory Rate 20 17 20 Blood Pressure 116/58 L 113/57 L 126/59 L Pulse Oximetry 96 95 96 09/13/18 20:00 09/13/18 20:30 09/13/18 21:00 Temperature 99.0 F 99.0 F 99.0 F Pulse Rate 82 82 82 Respiratory Rate 19 18 18 Blood Pressure 127/58 L 130/60 135/63 Pulse Oximetry 96 98 99 09/13/18 21:30 09/13/18 22:00 09/13/18 22:30 Temperature 98.8 F 98.8 F 99.0 F Pulse Rate 82 81 81 Respiratory Rate 14 15 19 Blood Pressure 129/61 131/60 129/61 Pulse Oximetry 94 L 97 95 09/13/18 22:57 09/13/18 23:00 09/13/18 23:30 Temperature 99.0 F 99.0 F Pulse Rate 74 82 81 Respiratory Rate 21 19 17 Blood Pressure 122/60 121/59 L Pulse Oximetry 98 97 97 09/14/18 00:00 09/14/18 00:30 09/14/18 01:00 Temperature 99.0 F 99.0 F 99.0 F Pulse Rate 81 82 82 Respiratory Rate 16 16 16 Blood Pressure 126/60 123/60 137/61 Pulse Oximetry 99 95 100 09/14/18 01:30 09/14/18 02:00 09/14/18 02:30 Temperature 99.0 F 99.0 F Pulse Rate 82 82 80 Respiratory Rate 17 17 15 Blood Pressure 135/63 126/60 140/65 Pulse Oximetry 97 91 L 99 09/14/18 03:00 09/14/18 03:30 09/14/18 04:00 Temperature 98.3 F Pulse Rate 80 80 80 Respiratory Rate 16 20 16 Blood Pressure 143/63 H 147/66 H 156/67 H Pulse Oximetry 100 100 98 09/14/18 04:30 09/14/18 05:00 09/14/18 05:30 Temperature Pulse Rate 79 79 79 Respiratory Rate 14 3 L 4 L Blood Pressure 149/67 H 161/67 H 166/72 H Pulse Oximetry 98 98 98 09/14/18 05:51 09/14/18 06:00 09/14/18 06:30 Temperature Pulse Rate 78 78 66 Respiratory Rate 20 0 L 0 L Blood Pressure 154/69 H 148/65 H 154/68 H Pulse Oximetry 97 97 100 09/14/18 07:00 09/14/18 07:30 09/14/18 08:00 Temperature 96.7 F L Pulse Rate 67 78 78 Respiratory Rate 0 L 15 19 Blood Pressure 162/71 H 156/67 H 160/71 H Pulse Oximetry 98 97 92 L 09/14/18 08:17 09/14/18 08:30 09/14/18 09:00 Temperature Pulse Rate 77 77 Respiratory Rate 20 13 24 Blood Pressure 159/67 H 157/68 H Pulse Oximetry 96 95 09/14/18 09:15 09/14/18 09:30 09/14/18 09:45 Temperature Pulse Rate 77 77 78 Respiratory Rate 14 15 23 Blood Pressure 158/69 H 144/64 H 151/67 H Pulse Oximetry 97 96 98 09/14/18 10:00 09/14/18 10:15 09/14/18 10:30 Temperature Pulse Rate 78 79 79 Respiratory Rate 15 16 16 Blood Pressure 144/65 H 156/70 H 145/65 H Pulse Oximetry 98 98 99 09/14/18 10:45 09/14/18 11:00 09/14/18 11:15 Temperature Pulse Rate 79 79 79 Respiratory Rate 16 22 20 Blood Pressure 146/67 H 154/67 H 138/62 Pulse Oximetry 98 96 96 09/14/18 11:30 09/14/18 11:45 09/14/18 12:00 Temperature 97.9 F Pulse Rate 79 62 65 Respiratory Rate 17 17 26 H Blood Pressure 135/63 129/59 L 132/61 Pulse Oximetry 97 97 93 L 09/14/18 13:00 Temperature Pulse Rate 78 Respiratory Rate 20 Blood Pressure 136/58 L Pulse Oximetry 93 L Intake & Output 1009/14/18 09/14/18 18:59 06:59 18:59 Intake Total 120 / 120 480 / 480 Output Total 200 / 200 0 / 0 3250 / 3250 Balance -80 / -80 480 / 480 -3250 / -3250 Weight 65 kg Intake: Oral 120 / 120 480 / 480 Output: Urine 0 / 0 0 / 0 250 / 250 Emesis 200 / 200 Hemodialysis Amount 3000 / 3000 Other: Date of Last Bowel Movement 09/13/18 09/14/18 09/14/18 # Bowel Movements 2 2 # Emeses 2 - Constitutional no acute distress - Routine HEENT Exam Head: Present: normocephalic Eye: Present: PERRL ENT: Present: mucous membranes moist - Routine Neck Exam Present: full ROM - Routine Respiratory Exam Present: crackles Comments: Fine crackles bilaterally lower lobes - Routine Cardiovascular Exam Present: S1, S2. Absent: murmur, gallop, rubs - Routine Abdominal Exam Present: normoactive bowel sounds - Routine Extremities Exam Present: edema, full ROM, pulses intact, normal capillary refill. Absent: cyanosis, clubbing Comments: Trace edema bilaterally lower extremities - Routine Skin Exam Present: intact - Routine Neurological Exam Present: oriented X3 - Detailed Neurological Exam: Coma Scale Eye Opening: Spontaneous Verbal Response: Oriented Motor Response: Obey commands [place] Coma Scale Total: 15 - Routine Psychiatric Exam Present: normal affect Results 09/13/18 05:36 09/13/18 11:01 CBC 09/13/18 Range/Units 05:36 WBC 5.3 (4.0-11.0) th/mm3 RBC 4.46 (4.00-5.30) mil/mm3 Hgb 13.4 D (11.6-15.3) gm/dL Hct 41.6 (35.0-46.0) % Plt Count 303 (150-450) th/mm3 Neut # (Auto) 3.7 (1.8-7.7) th/mm3 Lymph # (Auto) 1.0 (1.0-4.8) th/mm3 [place] # (Auto) 0.4 (0.0-0.9) th/mm3 Eos # (Auto) 0.1 (0.0-0.4) th/mm3 Baso # (Auto) 0.1 (0.0-0.2) th/mm3 Comprehensive Metabolic Panel 09/13/18 09/13/18 Range/Units 05:36 11:01 Sodium 135 L 135 L (136-145) meq/L Potassium 3.5 3.6 (3.5-5.1) meq/L Chloride 98 97 L (98-107) meq/L Carbon Dioxide 27.8 28.3 (21.0-32.0) meq/L BUN 26 H 25 H (7-18) mg/dL Creatinine 2.21 H 2.38 H (0.50-1.00) mg/dL Calcium 9.4 9.0 (8.5-10.1) mg/dL Albumin 2.3 L (3.4-5.0) g/dL Intake and Output 09/14/18 09/14/18 09/14/18 06:59 14:59 22:59 Intake Total 480 / 480 Output Total 0 / 0 3250 / 3250 Balance 480 / 480 -3250 / -3250 Intake: Oral 480 / 480 Output: Urine 0 / 0 250 / 250 Hemodialysis Amount 3000 / 3000 Other: Date of Last Bowel Movement 09/14/18 09/14/18 # Bowel Movements 2 Weight 65 kg - Imaging and Cardiology Imaging: Impressions Chest X-Ray 09/13/18 00:00 CONCLUSION: 1. Stable moderate left pleural effusion and associated left lower lobe airspace disease. 2. Worsening right-sided pleural effusion, now [id number] in size, with associated right lower lobe airspace disease. 3. Persistent positive fluid balance. Assessment and Plan - Assessment (1) DKA (diabetic ketoacidoses) Code(s): E13.10 - Other specified diabetes mellitus with ketoacidosis without coma Status: Acute (2) Acute UTI Code(s): N39.0 - Urinary tract infection, site not specified Status: Acute (3) ESRD (end stage renal disease) on dialysis Code(s): N18.6 - End stage renal disease; Z99.2 - Dependence on renal dialysis Status: Acute (4) Diabetes Code(s): E11.9 - Type 2 diabetes mellitus without complications Status: Acute (5) Hypertension Code(s): I10 - Essential (primary) hypertension Status: Acute (6) Pain and swelling of right upper extremity Code(s): M79.601 - Pain in right arm; M79.89 - Other specified soft tissue disorders Status: Acute (7) Fluid overload Code(s): E87.70 - Fluid overload, unspecified Status: Acute - Plan Currently there is no evidence of atrial arrhythmias, continue with current cardiac treatment plan. Nephrology evaluation in progress, patient currently receiving dialysis. Mental status markedly improved. We will continue to follow the patient during her hospitalization and see her back for follow-up in our office post discharge. Patient was seen and evaluated by Dr. Reddy who participated in care, management and decision-making. - Attending Attestation Patient seen and examined. I reviewed and agree with the evaluation and plan as presented. Overall improved. Continue current program. No new cardiac issues. (1) DKA (diabetic ketoacidoses) Qualifiers: Diabetes mellitus type: type 2 Diabetes mellitus complication detail: without coma Qualified Code(s): E11.10 - Type 2 diabetes mellitus with ketoacidosis without coma (4) Diabetes Qualifiers: Diabetes mellitus custodial insulin use: with custodial use (7) Fluid overload Qualifiers: Hypervolemia type: unspecified Qualified Code(s): E87.70 - Fluid overload, unspecified
--- NOTE | 2018-09-14 16:57 | P.PNPL ---
Subjective Interval history: 67 YOWF with CHF,COPD, ch pl eff, DM Admitted with SOB Had HD Breathing better has cough with small amount of sputum No Fever Physical Exam Vital signs: Vital Signs 09/13/18 17:00 09/13/18 17:30 09/13/18 18:00 Temperature 98.6 F 98.8 F 99.0 F Pulse Rate 82 83 82 Respiratory Rate 23 21 20 Blood Pressure 136/64 137/64 135/63 Pulse Oximetry 95 98 98 09/13/18 18:30 09/13/18 19:00 09/13/18 19:30 Temperature 99.1 F 99.1 F 99.1 F Pulse Rate 82 82 82 Respiratory Rate 20 17 20 Blood Pressure 116/58 L 113/57 L 126/59 L Pulse Oximetry 96 95 96 09/13/18 20:00 09/13/18 20:30 09/13/18 21:00 Temperature 99.0 F 99.0 F 99.0 F Pulse Rate 82 82 82 Respiratory Rate 19 18 18 Blood Pressure 127/58 L 130/60 135/63 Pulse Oximetry 96 98 99 09/13/18 21:30 09/13/18 22:00 09/13/18 22:30 Temperature 98.8 F 98.8 F 99.0 F Pulse Rate 82 81 81 Respiratory Rate 14 15 19 Blood Pressure 129/61 131/60 129/61 Pulse Oximetry 94 L 97 95 09/13/18 22:57 09/13/18 23:00 09/13/18 23:30 Temperature 99.0 F 99.0 F Pulse Rate 74 82 81 Respiratory Rate 21 19 17 Blood Pressure 122/60 121/59 L Pulse Oximetry 98 97 97 09/14/18 00:00 09/14/18 00:30 09/14/18 01:00 Temperature 99.0 F 99.0 F 99.0 F Pulse Rate 81 82 82 Respiratory Rate 16 16 16 Blood Pressure 126/60 123/60 137/61 Pulse Oximetry 99 95 100 09/14/18 01:30 09/14/18 02:00 09/14/18 02:30 Temperature 99.0 F 99.0 F Pulse Rate 82 82 80 Respiratory Rate 17 17 15 Blood Pressure 135/63 126/60 140/65 Pulse Oximetry 97 91 L 99 09/14/18 03:00 09/14/18 03:30 09/14/18 04:00 Temperature 98.3 F Pulse Rate 80 80 80 Respiratory Rate 16 20 16 Blood Pressure 143/63 H 147/66 H 156/67 H Pulse Oximetry 100 100 98 09/14/18 04:30 09/14/18 05:00 09/14/18 05:30 Temperature Pulse Rate 79 79 79 Respiratory Rate 14 3 L 4 L Blood Pressure 149/67 H 161/67 H 166/72 H Pulse Oximetry 98 98 98 09/14/18 05:51 09/14/18 06:00 09/14/18 06:30 Temperature Pulse Rate 78 78 66 Respiratory Rate 20 0 L 0 L Blood Pressure 154/69 H 148/65 H 154/68 H Pulse Oximetry 97 97 100 09/14/18 07:00 09/14/18 07:30 09/14/18 08:00 Temperature 96.7 F L Pulse Rate 67 78 78 Respiratory Rate 0 L 15 19 Blood Pressure 162/71 H 156/67 H 160/71 H Pulse Oximetry 98 97 92 L 09/14/18 08:17 09/14/18 08:30 09/14/18 09:00 Temperature Pulse Rate 77 77 Respiratory Rate 20 13 24 Blood Pressure 159/67 H 157/68 H Pulse Oximetry 96 95 09/14/18 09:15 09/14/18 09:30 09/14/18 09:45 Temperature Pulse Rate 77 77 78 Respiratory Rate 14 15 23 Blood Pressure 158/69 H 144/64 H 151/67 H Pulse Oximetry 97 96 98 09/14/18 10:00 09/14/18 10:15 09/14/18 10:30 Temperature Pulse Rate 78 79 79 Respiratory Rate 15 16 16 Blood Pressure 144/65 H 156/70 H 145/65 H Pulse Oximetry 98 98 99 09/14/18 10:45 09/14/18 11:00 09/14/18 11:15 Temperature Pulse Rate 79 79 79 Respiratory Rate 16 22 20 Blood Pressure 146/67 H 154/67 H 138/62 Pulse Oximetry 98 96 96 09/14/18 11:30 09/14/18 11:45 09/14/18 12:00 Temperature 97.9 F Pulse Rate 79 62 65 Respiratory Rate 17 17 26 H Blood Pressure 135/63 129/59 L 132/61 Pulse Oximetry 97 97 93 L 09/14/18 13:00 09/14/18 14:00 09/14/18 14:01 Temperature Pulse Rate 78 70 71 Respiratory Rate 20 21 14 Blood Pressure 136/58 L 176/72 H Pulse Oximetry 93 L 97 96 09/14/18 15:00 Temperature Pulse Rate 67 Respiratory Rate 19 Blood Pressure 156/70 H Pulse Oximetry 96 Intake & Output 09/13/18 09/14/18 09/14/18 18:59 06:59 18:59 Intake Total 120 / 120 480 / 480 Output Total 200 / 200 0 / 0 3250 / 3250 Balance -80 / -80 480 / 480 -3250 / -3250 Weight 65 kg Intake: Oral 120 / 120 480 / 480 Output: Urine 0 / 0 0 / 0 250 / 250 Emesis 200 / 200 Hemodialysis Amount 3000 / 3000 Other: Date of Last Bowel Movement 09/13/18 09/14/18 09/14/18 # Bowel Movements 2 2 # Emeses 2 GENERAL: Elderly wf mild sob, weak SKIN: Warm and dry. HEAD: Normocephalic. EYES: No scleral icterus. No injection or drainage. NECK: Supple, trachea midline. No JVD or lymphadenopathy. CARDIOVASCULAR: Regular rate and rhythm without murmurs, gallops, or rubs. RESPIRATORY: Breath sounds equal bilaterally. No accessory muscle use. GASTROINTESTINAL: Abdomen soft, non-tender, nondistended. MUSCULOSKELETAL: No cyanosis, or edema. BACK: Nontender without obvious deformity. No CVA tenderness. Assessment and Plan - Plan IMPRESSION: 1. Respiratory failure. 2. Hypoxia. 3. Morbid obesity. 4. Likely sleep apnea. 5. Osteomyelitis. 6. Pneumonia. 7. Pulmonary edema. 8. Renal insufficiency. PLAN: Supplement [address] effusion, stable Diurease with Bumex Hemodialysis If effusion increases, will need US guided Thoracentesis. Encourage po
--- NOTE | 2018-09-14 18:37 | P.CON ---
History of Present Illness Service: Hand surgery Consult date: 09/14/18 Reason for Consult: Right thumb pain Primary Care Provider: No Primary Care Physician History of Present Illness: History obtained from patient and chart This is a 67-year-old female complaining of right thumb pain times 6 weeks. She presents with a past medical history of hypertension, chronic obstructive pulmonary disease, hyperlipidemia, diabetes mellitus, congestive heart failure with recurrent pleural effusion, end-stage renal disease on hemodialysis 3 times per week, who came to the hospital complaining of worsening shortness of breath. Patient reports that the right thumb pain began roughly 5-6 weeks after obtaining her right upper extremity AV graft. She endorses pain to the distal thumb phalanx, worst over a radial thumb nailbed plaque. She endorses mild numbness tingling to the thumb tip. PAST MEDICAL HISTORY: Hypertension, ischemic heart disease, congestive heart failure with diastolic dysfunction, diabetes mellitus, recurrent pleural effusion, chronic obstructive pulmonary disease, end-stage renal disease on hemodialysis 3 times per week. PAST SURGICAL HISTORY: History of AV fistula surgery, hysterectomy, laminectomy, tonsillectomy, appendicectomy cardiac catheterization with stent placement. Except as noted in the HPI review of systems negative to presenting complaint SOCIAL HISTORY: The patient is and lives with her . She has a past history of smoking. There is no history of heavy alcoholism. FAMILY HISTORY: Noncontributory. ALLERGIES: SHE IS ALLERGIC TO PROPOXYPHENE. Medication list reviewed PMF - History History Provided By: Patient - Medical History Medical History: Medical History (Last Reviewed 09/11/18 @ 03:41 by Linwood Shin) A-V fistula Anemia CAD (coronary artery disease) CAD (coronary artery disease) CHF (congestive heart failure) CHF (congestive heart failure) COPD (chronic obstructive pulmonary disease) COPD (chronic obstructive pulmonary disease) Chronic back pain Diabetes Diabetes ESRD (end stage renal disease) on dialysis End stage kidney disease HLD (hyperlipidemia) Hemodialysis access, AV graft Hemodialysis access, AV graft Hyperkalemia Hypertension Hypoxia - Surgical History Surgical History: Surgical History (Last Reviewed 09/11/18 @ 03:41 by Linwood Shin) H/O laminectomy H/O vaginal hysterectomy H/O: History of laser refractive surgery History of tonsillectomy Hx of appendectomy Hx of heart artery stent Stented coronary artery - Family History Family History: Family History (Last Reviewed 09/02/18 @ 12:33 by Jessica Edwards) Other ALS (amyotrophic lateral sclerosis) Multiple sclerosis - Tobacco History Second Hand Smoke Exposure: No Tobacco Use In Past 30 Days: No Smoking Status: Former smoker Tobacco Type: Cigarettes Packs Per Day: 1 (1ppd) Years Smoked: 35 Smoking End Date: The patient reports that she quit smoking 16 years ago. - Alcohol History How Often Do You Have a Drink Containing Alcohol: Monthly or less - Substance Use History Substance History: No History of Abuse - Travel History Recent Travel in the [place] Within the Last 8 Weeks: No Recent Travel Out of the Country Within the Last 8 Weeks: No - Immunization History Tetanus Immunization: Unsure Hx Influenza Vaccine This Season: Yes Medications and Allergies Active Medications: Active Medications Acetaminophen (Tylenol) 650 mg PO Q4H PRN PRN Reason: Temp > 100.4 OR PAIN 1-5 Last Admin: 09/11/18 21:37 Dose: 650 mg Acetaminophen (Tylenol) 650 mg PO UNSCH PRN PRN Reason: SEE LABEL COMMENTS Hydrocodone Bitart/Acetaminophen ([place] 5/325) 1 tab PO Q4H PRN PRN Reason: pain 1 to 10 Last Admin: 09/14/18 18:01 Dose: 1 tab Al Hydroxide/Mg Hydroxide (Milk Of Leonidas Luke) 30 ml PO Q12H PRN PRN Reason: Mild Constipation Albuterol (Duoneb Neb (Prn)) 1 ampul NEB Q4HR NEB PRN PRN Reason: SOB/WHEEZING Last Admin: 09/13/18 22:56 Dose: 1 ampul Aspirin (Ecotrin) 81 mg PO DAILY [facility] Last Admin: 09/14/18 13:08 Dose: Not Given Atorvastatin Calcium (Lipitor) 80 mg PO HS [facility] Last Admin: 09/13/18 21:13 Dose: 80 mg Bisacodyl (Dulcolax Supp) 10 mg RECTAL DAILY PRN PRN Reason: SEVERE CONSITIPATION Budesonide/Formoterol Fumarate (Symbicort 160/4.5 Mcg Inh) 2 puff INH BID [facility] Last Admin: 09/14/18 13:08 Dose: Not Given Bumetanide (Bumex) 1 mg PO BID [facility] Last Admin: 09/14/18 13:07 Dose: Not Given Calcium Acetate (Phoslo) 667 mg PO TID [facility] Last Admin: 09/14/18 18:01 Dose: 667 mg Carvedilol (Coreg) 6.25 mg PO BID [facility] Last Admin: 09/14/18 13:08 Dose: Not Given Clonidine HCl (Catapres) 0.1 mg PO UNSCH PRN PRN Reason: SEE LABEL COMMENTS Dextrose (D50w Vial) 50 ml IV.PUSH UNSCH PRN PRN Reason: PER HYPOGLYCEMIA PROTOCOL Last Admin: 09/13/18 09:00 Dose: 50 ml Diphenhydramine HCl (Benadryl) 25 mg PO UNSCH PRN PRN Reason: SEE LABEL COMMENTS Epoetin Low (Epogen Inj) 6,000 unit IV.PUSH UNSCH PRN PRN Reason: SEE LABEL COMMENTS Gabapentin (Neurontin) 100 mg PO HS [facility] Last Admin: 09/13/18 21:13 Dose: 100 mg Gelatin (Gelfoam 12 Mm/7 Mm Topical) 1 foam TOPICAL PRN PRN PRN Reason: help stop bleeding from site Gentamicin Sulfate (Gentamicin Inj) 20 mg OTHER WITH DIALYSIS PRN PRN Reason: Dwell Gentamycin Lock Glucagon (Glucagon Inj) 1 mg OTHER PRN PRN PRN Reason: for Hypoglycemia Protocol Heparin Sodium (Porcine) (Heparin Inj) 8,000 units OTHER WITH DIALYSIS PRN PRN Reason: for machine prime Heparin Sodium (Porcine) (Heparin Inj) 1,000 units OTHER WITH DIALYSIS PRN PRN Reason: Dwell Heparin to Fill Catheter Hydralazine HCl (Apresoline) 100 mg PO TID [facility] Last Admin: 09/14/18 18:24 Dose: 100 mg Albumin Human (Flexbumin 25% Inj) 100 mls @ 60 mls/hr IV.SIG WITH DIALYSIS PRN PRN Reason: hypotension / volume replace Sodium Chloride (Ns Inj) 1,000 mls @ 0 mls/hr OTHER .Q0M PRN PRN Reason: for prime and rinse back Sodium Chloride (Ns Inj) 1,000 mls @ 200 mls/hr OTHER .Q5H PRN PRN Reason: for dialyzer flush PRN Sodium Chloride (Ns Inj) 1,000 mls @ 0 mls/hr IV.CONT .Q0M PRN PRN Reason: hypotension / volume replace Insulin Aspart (Novolog Insulin Correctional Sugar Inj) 0 unit SQ ACHS [facility]; Protocol Last Admin: 09/14/18 18:22 Dose: 7 unit Lactulose (Lactulose Liq) 30 ml PO DAILY PRN PRN Reason: SEVERE CONSITIPATION Mannitol (Mannitol Inj) 12.5 gm IV.PUSH UNSCH PRN PRN Reason: hypotension / volume replace Nifedipine (Procardia Xl) 60 mg PO DAILY [facility] Last Admin: 09/14/18 13:08 Dose: Not Given Nitroglycerin (Nitrostat Sl) 0.4 mg SL Q5M PRN PRN Reason: CHEST PAIN Ondansetron HCl (Zofran Inj) 4 mg IV.PUSH Q6H PRN PRN Reason: NAUSEA OR VOMITING Last Admin: 09/13/18 14:28 Dose: 4 mg Ondansetron HCl (Zofran Inj) 4 mg IV.PUSH UNSCH PRN PRN Reason: NAUSEA OR VOMITING Prasugrel (Effient) 10 mg PO DAILY [facility] Last Admin: 09/14/18 13:08 Dose: Not Given Senna/Docusate Sodium (Jocelyn-Colace) 1 tab PO BID [facility] Last Admin: 09/14/18 13:08 Dose: Not Given Sennosides (Senokot) 17.2 mg PO Q12H PRN PRN Reason: Moderate Constipation Sodium Chloride (Ns Flush) 5 ml IV.FLUSH PRN PRN PRN Reason: flush each lumen during HD Sodium Chloride (Ns Flush) 2 ml IV.FLUSH BID [facility] Sodium Chloride (Ns Flush) 2 ml IV.FLUSH PRN PRN PRN Reason: FLUSH AFTER USING IV ACCESS Allergies Allergy/AdvReac Type Severity Reaction Status Date / Time propoxyphene Allergy Intermediate RASH Verified 07/18/18 07:41 Home Medications Medication Instructions Recorded Confirmed Type albuterol sulfate [Ventolin HFA] 2 puff INHALATION Q6H PRN 06/03/18 09/11/18 History aspirin 81 mg PO DAILY 06/03/18 09/11/18 History budesonide-formoterol [Symbicort] 2 puff INHALATION BID 06/03/18 09/11/18 History atorvastatin 80 mg PO HS 08/30/18 09/11/18 History insulin detemir U-100 [Levemir 20 unit SUBCUT BID 08/30/18 09/11/18 History FlexTouch U-100 Insuln] mupirocin 1 applic TOPICAL BID 08/30/18 09/11/18 History prasugrel 10 mg PO DAILY 08/30/18 09/11/18 History vit B comp no.7-omexh-F-biotin 1 tab PO DAILY 08/30/18 09/11/18 History [Nephro-[facility]] Physical Exam Vital signs: Vital Signs 09/13/18 19:00 09/13/18 19:30 09/13/18 20:00 Temperature 99.1 F 99.1 F 99.0 F Pulse Rate 82 82 82 Respiratory Rate 17 20 19 Blood Pressure 113/57 L 126/59 L 127/58 L Pulse Oximetry 95 96 96 09/13/18 20:30 09/13/18 21:00 09/13/18 21:30 Temperature 99.0 F 99.0 F 98.8 F Pulse Rate 82 82 82 Respiratory Rate 18 18 14 Blood Pressure 130/60 135/63 129/61 Pulse Oximetry 98 99 94 L 09/13/18 22:00 09/13/18 22:30 09/13/18 22:57 Temperature 98.8 F 99.0 F Pulse Rate 81 81 74 Respiratory Rate 15 19 21 Blood Pressure 131/60 129/61 Pulse Oximetry 97 95 98 09/13/18 23:00 09/13/18 23:30 09/14/18 00:00 Temperature 99.0 F 99.0 F 99.0 F Pulse Rate 82 81 81 Respiratory Rate 19 17 16 Blood Pressure 122/60 121/59 L 126/60 Pulse Oximetry 97 97 99 09/14/18 00:30 09/14/18 01:00 09/14/18 01:30 Temperature 99.0 F 99.0 F 99.0 F Pulse Rate 82 82 82 Respiratory Rate 16 16 17 Blood Pressure 123/60 137/61 135/63 Pulse Oximetry 95 100 97 09/14/18 02:00 09/14/18 02:30 09/14/18 03:00 Temperature 99.0 F Pulse Rate 82 80 80 Respiratory Rate 17 15 16 Blood Pressure 126/60 140/65 143/63 H Pulse Oximetry 91 L 99 100 09/14/18 03:30 09/14/18 04:00 09/14/18 04:30 Temperature 98.3 F Pulse Rate 80 80 79 Respiratory Rate 20 16 14 Blood Pressure 147/66 H 156/67 H 149/67 H Pulse Oximetry 100 98 98 09/14/18 05:00 09/14/18 05:30 09/14/18 05:51 Temperature Pulse Rate 79 79 78 Respiratory Rate 3 L 4 L 20 Blood Pressure 161/67 H 166/72 H 154/69 H Pulse Oximetry 98 98 97 09/14/18 06:00 09/14/18 06:30 09/14/18 07:00 Temperature Pulse Rate 78 66 67 Respiratory Rate 0 L 0 L 0 L Blood Pressure 148/65 H 154/68 H 162/71 H Pulse Oximetry 97 100 98 09/14/18 07:30 09/14/18 08:00 09/14/18 08:17 Temperature 96.7 F L Pulse Rate 78 78 Respiratory Rate 15 19 20 Blood Pressure 156/67 H 160/71 H Pulse Oximetry 97 92 L 09/14/18 08:30 09/14/18 09:00 09/14/18 09:15 Temperature Pulse Rate 77 77 77 Respiratory Rate 13 24 14 Blood Pressure 159/67 H 157/68 H 158/69 H Pulse Oximetry 96 95 97 09/14/18 09:30 09/14/18 09:45 09/14/18 10:00 Temperature Pulse Rate 77 78 78 Respiratory Rate 15 23 15 Blood Pressure 144/64 H 151/67 H 144/65 H Pulse Oximetry 96 98 98 09/14/18 10:15 09/14/18 10:30 09/14/18 10:45 Temperature Pulse Rate 79 79 79 Respiratory Rate 16 16 16 Blood Pressure 156/70 H 145/65 H 146/67 H Pulse Oximetry 98 99 98 09/14/18 11:00 09/14/18 11:15 09/14/18 11:30 Temperature Pulse Rate 79 79 79 Respiratory Rate 22 20 17 Blood Pressure 154/67 H 138/62 135/63 Pulse Oximetry 96 96 97 09/14/18 11:45 09/14/18 12:00 09/14/18 13:00 Temperature 97.9 F Pulse Rate 62 65 78 Respiratory Rate 17 26 H 20 Blood Pressure 129/59 L 132/61 136/58 L Pulse Oximetry 97 93 L 93 L 09/14/18 14:00 09/14/18 14:01 09/14/18 15:00 Temperature Pulse Rate 70 71 67 Respiratory Rate 21 14 19 Blood Pressure 176/72 H 156/70 H Pulse Oximetry 97 96 96 09/14/18 16:00 09/14/18 17:00 09/14/18 17:01 Temperature 98.4 F Pulse Rate 68 74 74 Respiratory Rate 19 21 20 Blood Pressure 165/70 H 136/60 Pulse Oximetry 94 L 86 L 87 L 09/14/18 18:00 09/14/18 18:01 Temperature Pulse Rate 74 73 Respiratory Rate 24 21 Blood Pressure 164/65 H Pulse Oximetry 93 L 92 L Intake & Output 09/13/18 09/14/18 09/14/18 18:59 06:59 18:59 Intake Total 120 / 120 480 / 480 740 / 740 Output Total 200 / 200 0 / 0 6250 / 6250 Balance -80 / -80 480 / 480 -5510 / -5510 Weight 65 kg Intake: Oral 120 / 120 480 / 480 740 / 740 Output: Urine 0 / 0 0 / 0 250 / 250 Emesis 200 / 200 Hemodialysis Amount 6000 / 6000 Other: Date of Last Bowel Movement 09/13/18 09/14/18 09/14/18 # Bowel Movements 2 2 # Emeses 2 Narrative: No apparent anxiety moist mucous membranes PERRLA skin without rash respirations nonlabored moves all 4 extremities to command left upper extremity digits warm well perfused Right radial/ulnar pulse biphasic Right digits cool, left digits warm well perfused Full active range of motion Right thumb with decreased capillary refill from other digits Radial thumb bed with 1 cm x 3 mm plaque with dual erythema No increased warmth Does not appear infected Assessment and Plan - Assessment (1) Pain of right thumb Code(s): M79.644 - Pain in right finger(s) Status: Acute - Plan 67-year-old female who presents complaining of right thumb pain, with signs symptoms and history more consistent with right upper extremity steal syndrome Do not believe this is an acute infection No fluctuance appreciated Please consider consulting vascular surgery for evaluation for right upper extremity steal syndrome Please call with questions
[2018-09-14] MEDS: Sodium Chloride 0.9% 2 ML Flush BID IV.FLUSH SCH (20:51)
[2018-09-14] MEDS: Gabapentin 100 MG Capsule PO SCH (20:51)
[2018-09-15 04:24] LABS: Hematocrit 33.3 % (35.0-46.0); Hemoglobin 10.5 gm/dL (11.6-15.3); Mean Corpuscular HGB Conc 31.6 % (32.0-36.0); Mean Corpuscular Hemoglobin 29.9 pg (27.0-34.0); Mean Corpuscular Volume 94.7 fL (80.0-100.0); Mean Platelet Volume 8.3 fL (7.0-11.0); Platelet Count 212 th/mm3 (150-450); Red Blood Count 3.52 mil/mm3 (4.00-5.30); Red Cell Distribution Width 16.8 % (11.6-17.2)
[2018-09-15 04:50] LABS: Calcium 8.2 mg/dL (8.5-10.1); Carbon Dioxide 30.9 meq/L (21.0-32.0); Potassium 3.9 meq/L (3.5-5.1)
[2018-09-15] MEDS: Senna/Docusate Sodium 8.6/50 MG Tablet PO SCH ×2 (08:41→21:45)
[2018-09-15] MEDS: Calcium Acetate 667 MG Capsule PO SCH ×3 (08:41→17:22)
[2018-09-15] MEDS: Carvedilol 6.25 MG Tablet PO SCH ×2 (08:41→21:45)
[2018-09-15] MEDS: Budesonide-Formoterol 160/4.5 MCG 6 GM Inhaler INH SCH ×3 (08:42→21:41)
[2018-09-15] MEDS: Insulin NovoLOG Aspart Correctional Sugar Inj SQ SCH ×4 (08:42→21:46)
[2018-09-15] MEDS: Sodium Chloride 0.9% 2 ML Flush BID IV.FLUSH SCH ×2 (08:43→21:46)
--- NOTE | 2018-09-15 10:12 | P.PNCA ---
Subjective Interval history: Patient currently denies any chest pain, pressure, palpitations, dizziness, edema or shortness of breath. Patient states that she is feeling much better today and appears to be in good spirits. Medications and Allergies Allergies Allergy/AdvReac Type Severity Reaction Status Date / Time propoxyphene Allergy Intermediate RASH Verified 07/18/18 07:41 Home Medications Medication Instructions Recorded Confirmed Type albuterol sulfate [Ventolin HFA] 2 puff INHALATION Q6H PRN 06/03/18 09/11/18 History aspirin 81 mg PO DAILY 06/03/18 09/11/18 History budesonide-formoterol [Symbicort] 2 puff INHALATION BID 06/03/18 09/11/18 History atorvastatin 80 mg PO HS 08/30/18 09/11/18 History insulin detemir U-100 [Levemir 20 unit SUBCUT BID 08/30/18 09/11/18 History FlexTouch U-100 Insuln] mupirocin 1 applic TOPICAL BID 08/30/18 09/11/18 History prasugrel 10 mg PO DAILY 08/30/18 09/11/18 History vit B comp no.1-xnfut-I-biotin 1 tab PO DAILY 08/30/18 09/11/18 History [Nephro-[facility] Rx] Active Medications: Active Medications Acetaminophen (Tylenol) 650 mg PO Q4H PRN PRN Reason: Temp > 100.4 OR PAIN 1-5 Last Admin: 09/11/18 21:37 Dose: 650 mg Acetaminophen (Tylenol) 650 mg PO UNSCH PRN PRN Reason: SEE LABEL COMMENTS Hydrocodone Bitart/Acetaminophen ([place] 5/325) 1 tab PO Q4H PRN PRN Reason: pain 1 to 10 Last Admin: 09/15/18 06:46 Dose: 1 tab Al Hydroxide/Mg Hydroxide (Milk Of Magnalonso Liq) 30 ml PO Q12H PRN PRN Reason: Mild Constipation Albuterol (Duoneb Neb (Prn)) 1 ampul NEB Q4HR NEB PRN PRN Reason: SOB/WHEEZING Last Admin: 09/15/18 02:57 Dose: 1 ampul Aspirin (Ecotrin) 81 mg PO DAILY [facility] Last Admin: 09/15/18 08:41 Dose: 81 mg Atorvastatin Calcium (Lipitor) 80 mg PO HS [facility] Last Admin: 09/14/18 20:51 Dose: 80 mg Bisacodyl (Dulcolax Supp) 10 mg RECTAL DAILY PRN PRN Reason: SEVERE CONSITIPATION Budesonide/Formoterol Fumarate (Symbicort 160/4.5 Mcg Inh) 2 puff INH BID [facility] Last Admin: 09/15/18 08:46 Dose: Not Given Bumetanide (Bumex) 1 mg PO BID [facility] Last Admin: 09/15/18 08:42 Dose: 1 mg Calcium Acetate (Phoslo) 667 mg PO TID [facility] Last Admin: 09/15/18 08:41 Dose: 667 mg Carvedilol (Coreg) 6.25 mg PO BID [facility] Last Admin: 09/15/18 08:41 Dose: 6.25 mg Clonidine HCl (Catapres) 0.1 mg PO UNSCH PRN PRN Reason: SEE LABEL COMMENTS Dextrose (D50w Vial) 50 ml IV.PUSH UNSCH PRN PRN Reason: PER HYPOGLYCEMIA PROTOCOL Last Admin: 09/13/18 09:00 Dose: 50 ml Diphenhydramine HCl (Benadryl) 25 mg PO UNSCH PRN PRN Reason: SEE LABEL COMMENTS Epoetin Low (Epogen Inj) 6,000 unit IV.PUSH UNSCH PRN PRN Reason: SEE LABEL COMMENTS Gabapentin (Neurontin) 100 mg PO [facility] Last Admin: 09/14/18 20:51 Dose: 100 mg Gelatin (Gelfoam 12 Mm/7 Mm Topical) 1 foam TOPICAL PRN PRN PRN Reason: help stop bleeding from site Gentamicin Sulfate (Gentamicin Inj) 20 mg OTHER WITH DIALYSIS PRN PRN Reason: Dwell Gentamycin Lock Glucagon (Glucagon Inj) 1 mg OTHER PRN PRN PRN Reason: for Hypoglycemia Protocol Heparin Sodium (Porcine) (Heparin Inj) 8,000 units OTHER WITH DIALYSIS PRN PRN Reason: for machine prime Heparin Sodium (Porcine) (Heparin Inj) 1,000 units OTHER WITH DIALYSIS PRN PRN Reason: Dwell Heparin to Fill Catheter Hydralazine HCl (Apresoline) 100 mg PO TID [facility] Last Admin: 09/15/18 08:41 Dose: 100 mg Albumin Human (Flexbumin 25% Inj) 100 mls @ 60 mls/hr IV.SIG WITH DIALYSIS PRN PRN Reason: hypotension / volume replace Sodium Chloride (Ns Inj) 1,000 mls @ 0 mls/hr OTHER .Q0M PRN PRN Reason: for prime and rinse back Sodium Chloride (Ns Inj) 1,000 mls @ 200 mls/hr OTHER .Q5H PRN PRN Reason: for dialyzer flush PRN Sodium Chloride (Ns Inj) 1,000 mls @ 0 mls/hr IV.CONT .Q0M PRN PRN Reason: hypotension / volume replace Insulin Aspart (Novolog Insulin Correctional Sugar Inj) 0 unit SQ ACHS [facility]; Protocol Last Admin: 09/15/18 08:42 Dose: 7 unit Lactulose (Lactulose Liq) 30 ml PO DAILY PRN PRN Reason: SEVERE CONSITIPATION Mannitol (Mannitol Inj) 12.5 gm IV.PUSH UNSCH PRN PRN Reason: hypotension / volume replace Nifedipine (Procardia Xl) 60 mg PO DAILY [facility] Last Admin: 09/14/18 13:08 Dose: Not Given Nitroglycerin (Nitrostat Sl) 0.4 mg SL Q5M PRN PRN Reason: CHEST PAIN Ondansetron HCl (Zofran Inj) 4 mg IV.PUSH Q6H PRN PRN Reason: NAUSEA OR VOMITING Last Admin: 09/13/18 14:28 Dose: 4 mg Ondansetron HCl (Zofran Inj) 4 mg IV.PUSH UNSCH PRN PRN Reason: NAUSEA OR VOMITING Prasugrel (Effient) 10 mg PO DAILY [facility] Last Admin: 09/15/18 08:42 Dose: 10 mg Senna/Docusate Sodium (Jocelyn-Colace) 1 tab PO BID [facility] Last Admin: 09/15/18 08:41 Dose: 1 tab Sennosides (Senokot) 17.2 mg PO Q12H PRN PRN Reason: Moderate Constipation Sodium Chloride (Ns Flush) 5 ml IV.FLUSH PRN PRN PRN Reason: flush each lumen during HD Sodium Chloride (Ns Flush) 2 ml IV.FLUSH BID [facility] Last Admin: 09/15/18 08:43 Dose: 2 ml Sodium Chloride (Ns Flush) 2 ml IV.FLUSH PRN PRN PRN Reason: FLUSH AFTER USING IV ACCESS Physical Exam Vital signs: Vital Signs 09/14/18 10:15 09/14/18 10:30 09/14/18 10:45 Temperature Pulse Rate 79 79 79 Respiratory Rate 16 16 16 Blood Pressure 156/70 H 145/65 H 146/67 H Pulse Oximetry 98 99 98 09/14/18 11:00 09/14/18 11:15 09/14/18 11:30 Temperature Pulse Rate 79 79 79 Respiratory Rate 22 20 17 Blood Pressure 154/67 H 138/62 135/63 Pulse Oximetry 96 96 97 09/14/18 11:45 09/14/18 12:00 09/14/18 13:00 Temperature 97.9 F Pulse Rate 62 65 78 Respiratory Rate 17 26 H 20 Blood Pressure 129/59 L 132/61 136/58 L Pulse Oximetry 97 93 L 93 L 09/14/18 14:00 09/14/18 14:01 09/14/18 15:00 Temperature Pulse Rate 70 71 67 Respiratory Rate 21 14 19 Blood Pressure 176/72 H 156/70 H Pulse Oximetry 97 96 96 09/14/18 16:00 09/14/18 17:00 09/14/18 17:01 Temperature 98.4 F Pulse Rate 68 74 74 Respiratory Rate 19 21 20 Blood Pressure 165/70 H 136/60 Pulse Oximetry 94 L 86 L 87 L 09/14/18 18:00 09/14/18 18:01 09/14/18 19:00 Temperature Pulse Rate 74 73 84 Respiratory Rate 24 21 Blood Pressure 164/65 H Pulse Oximetry 93 L 92 L 09/14/18 20:00 09/14/18 21:00 09/14/18 22:00 Temperature 98.3 F Pulse Rate 84 76 70 Respiratory Rate 22 Blood Pressure 146/67 H Pulse Oximetry 93 L 09/14/18 22:57 09/14/18 23:00 09/15/18 00:00 Temperature 98.4 F Pulse Rate 69 67 66 Respiratory Rate 17 22 Blood Pressure 159/71 H Pulse Oximetry 97 09/15/18 01:00 09/15/18 02:00 09/15/18 02:57 Temperature Pulse Rate 66 66 67 Respiratory Rate 15 Blood Pressure Pulse Oximetry 09/15/18 03:00 09/15/18 04:00 09/15/18 05:00 Temperature 97.9 F Pulse Rate 66 68 68 Respiratory Rate 22 Blood Pressure 161/72 H Pulse Oximetry 96 09/15/18 06:00 09/15/18 07:00 09/15/18 07:56 Temperature 97.3 F L Pulse Rate 69 70 70 Respiratory Rate 18 Blood Pressure 158/71 H Pulse Oximetry 97 09/15/18 08:00 09/15/18 09:00 Temperature Pulse Rate 70 70 Respiratory Rate Blood Pressure Pulse Oximetry Intake & Output 09/14/18 09/15/18 09/15/18 18:59 06:59 18:59 Intake Total 740 / 740 480 / 480 Output Total 6250 / 6250 Balance -5510 / -5510 480 / 480 Weight 64.5 kg Intake: Oral 740 / 740 480 / 480 Output: Urine 250 / 250 Hemodialysis Amount 6000 / 6000 Other: Date of Last Bowel Movement 09/14/18 09/13/18 09/13/18 - Constitutional no acute distress - Routine HEENT Exam Head: Present: normocephalic Eye: Present: PERRL ENT: Present: mucous membranes moist - Routine Neck Exam Present: full ROM - Routine Respiratory Exam Present: CTA bilaterally - Routine Cardiovascular Exam Present: S1, S2. Absent: murmur, gallop, rubs - Routine Abdominal Exam Present: normoactive bowel sounds - Routine Extremities Exam Present: full ROM, pulses intact, normal capillary refill, AV fistula. Absent: cyanosis, clubbing, edema Comments: Edema greatly improved - Routine Skin Exam Present: intact - Routine Neurological Exam Present: oriented X3 - Detailed Neurological Exam: Coma Scale Eye Opening: Spontaneous Verbal Response: Oriented Motor Response: Obey commands Zeny Coma Scale Total: 15 - Routine Psychiatric Exam Present: normal affect Results 09/15/18 03:54 09/15/18 03:54 CBC 09/15/18 Range/Units 03:54 WBC 5.0 (4.0-11.0) th/mm3 RBC 3.52 L (4.00-5.30) mil/mm3 Hgb 10.5 L D (11.6-15.3) gm/dL Hct 33.3 L (35.0-46.0) % Plt Count 212 D (150-450) th/mm3 Comprehensive Metabolic Panel 09/13/18 09/15/18 Range/Units 11:01 03:54 Sodium 135 L 137 (136-145) meq/L Potassium 3.6 3.9 (3.5-5.1) meq/L Chloride 97 L 99 (98-107) meq/L Carbon Dioxide 28.3 30.9 (21.0-32.0) meq/L BUN 25 H 24 H (7-18) mg/dL Creatinine 2.38 H 2.19 H (0.50-1.00) mg/dL Calcium 9.0 8.2 L D (8.5-10.1) mg/dL Intake and Output 09/14/18 09/15/18 09/15/18 22:59 06:59 14:59 Intake Total 740 / 740 480 / 480 Output Total 3000 / 3000 Balance -2260 / -2260 480 / 480 Intake: Oral 740 / 740 480 / 480 Output: Hemodialysis Amount 3000 / 3000 Other: Date of Last Bowel Movement 09/13/18 09/13/18 09/13/18 Weight 64.5 kg Assessment and Plan - Assessment (1) DKA (diabetic ketoacidoses) Code(s): E13.10 - Other specified diabetes mellitus with ketoacidosis without coma Status: Acute (2) Acute UTI Code(s): N39.0 - Urinary tract infection, site not specified Status: Acute (3) ESRD (end stage renal disease) on dialysis Code(s): N18.6 - End stage renal disease; Z99.2 - Dependence on renal dialysis Status: Acute (4) Diabetes Code(s): E11.9 - Type 2 diabetes mellitus without complications Status: Acute (5) Hypertension Code(s): I10 - Essential (primary) hypertension Status: Acute (6) Pain and swelling of right upper extremity Code(s): M79.601 - Pain in right arm; M79.89 - Other specified soft tissue disorders Status: Acute (7) Fluid overload Code(s): E87.70 - Fluid overload, unspecified Status: Acute - Plan Telemetry shows sinus rhythm and sinus bradycardia without any episodes of atrial arrhythmia. We will continue with current cardiac treatment plan. Remains stable from cardiac standpoint. Patient resting comfortably, mental status markedly improved. We will continue to follow the patient during her hospitalization and see her back for follow-up in our office post discharge. Patient was seen and evaluated by Dr. Reddy who participated in care, management and decision-making. - Attending Attestation Patient seen and examined. I reviewed and agree with the evaluation and plan as presented. No new cardiac issues. Overall improved. Continue current program. (1) DKA (diabetic ketoacidoses) Qualifiers: Diabetes mellitus type: type 2 Diabetes mellitus complication detail: without coma Qualified Code(s): E11.10 - Type 2 diabetes mellitus with ketoacidosis without coma (4) Diabetes Qualifiers: Diabetes mellitus fpc insulin use: with fpc use (7) Fluid overload Qualifiers: Hypervolemia type: unspecified Qualified Code(s): E87.70 - Fluid overload, unspecified
--- NOTE | 2018-09-15 10:34 | P.PNNP ---
Subjective Interval history: Resting, reports shortness of breath has improved. Hemodialysis yesterday. Right hand being evaluated for steel syndrome <Jessica Clemons - Last Filed: 09/15/18 10:27> Physical Exam Vital signs: Vital Signs 09/14/18 10:30 09/14/18 10:45 09/14/18 11:00 Temperature Pulse Rate 79 79 79 Respiratory Rate 16 16 22 Blood Pressure 145/65 H 146/67 H 154/67 H Pulse Oximetry 99 98 96 09/14/18 11:15 09/14/18 11:30 09/14/18 11:45 Temperature Pulse Rate 79 79 62 Respiratory Rate 20 17 17 Blood Pressure 138/62 135/63 129/59 L Pulse Oximetry 96 97 97 09/14/18 12:00 09/14/18 13:00 09/14/18 14:00 Temperature 97.9 F Pulse Rate 65 78 70 Respiratory Rate 26 H 20 21 Blood Pressure 132/61 136/58 L Pulse Oximetry 93 L 93 L 97 09/14/18 14:01 09/14/18 15:00 09/14/18 16:00 Temperature 98.4 F Pulse Rate 71 67 68 Respiratory Rate 14 19 19 Blood Pressure 176/72 H 156/70 H 165/70 H Pulse Oximetry 96 96 94 L 09/14/18 17:00 09/14/18 17:01 09/14/18 18:00 Temperature Pulse Rate 74 74 74 Respiratory Rate 21 20 24 Blood Pressure 136/60 Pulse Oximetry 86 L 87 L 93 L 09/14/18 18:01 09/14/18 19:00 09/14/18 20:00 Temperature 98.3 F Pulse Rate 73 84 84 Respiratory Rate 21 22 Blood Pressure 164/65 H 146/67 H Pulse Oximetry 92 L 93 L 09/14/18 21:00 09/14/18 22:00 09/14/18 22:57 Temperature Pulse Rate 76 70 69 Respiratory Rate 17 Blood Pressure Pulse Oximetry 09/14/18 23:00 09/15/18 00:00 09/15/18 01:00 Temperature 98.4 F Pulse Rate 67 66 66 Respiratory Rate 22 Blood Pressure 159/71 H Pulse Oximetry 97 09/15/18 02:00 09/15/18 02:57 09/15/18 03:00 Temperature Pulse Rate 66 67 66 Respiratory Rate 15 Blood Pressure Pulse Oximetry 09/15/18 04:00 09/15/18 05:00 09/15/18 06:00 Temperature 97.9 F Pulse Rate 68 68 69 Respiratory Rate 22 Blood Pressure 161/72 H Pulse Oximetry 96 09/15/18 07:00 09/15/18 07:56 09/15/18 08:00 Temperature 97.3 F L Pulse Rate 70 70 70 Respiratory Rate 18 Blood Pressure 158/71 H Pulse Oximetry 97 09/15/18 09:00 Temperature Pulse Rate 70 Respiratory Rate Blood Pressure Pulse Oximetry Intake & Output 09/14/18 09/15/18 09/15/18 18:59 06:59 18:59 Intake Total 740 / 740 480 / 480 Output Total 6250 / 6250 Balance -5510 / -5510 480 / 480 Weight 64.5 kg Intake: Oral 740 / 740 480 / 480 Output: Urine 250 / 250 Hemodialysis Amount 6000 / 6000 Other: Date of Last Bowel Movement 09/14/18 09/13/18 09/13/18 Narrative: GENERAL: Alert and oriented. SKIN: Warm and dry. NECK: Supple, trachea midline. No JVD distention CARDIOVASCULAR: Regular rate and rhythm without murmurs, gallops, or rubs. Right AVG. RESPIRATORY: Breath sounds equal bilaterally. No accessory muscle use. GASTROINTESTINAL: Abdomen soft, non-tender, nondistended. MUSCULOSKELETAL: No cyanosis. 1 + Edema. BACK: Nontender without obvious deformity. No CVA tenderness. <Jessica Clemons - Last Filed: 09/15/18 10:27> Vital signs: Vital Signs 09/18/18 18:00 09/18/18 19:00 09/18/18 20:00 Temperature 98.3 F Pulse Rate 70 72 72 Respiratory Rate 20 Blood Pressure 162/70 H Pulse Oximetry 90 L 09/18/18 21:00 09/18/18 21:44 09/18/18 22:00 Temperature Pulse Rate 74 72 Respiratory Rate Blood Pressure Pulse Oximetry 95 09/18/18 23:00 09/19/18 00:00 09/19/18 01:00 Temperature 98.4 F Pulse Rate 75 74 72 Respiratory Rate 16 Blood Pressure 155/70 H Pulse Oximetry 92 L 09/19/18 02:00 09/19/18 03:00 09/19/18 04:00 Temperature 98.4 F Pulse Rate 72 71 72 Respiratory Rate 16 Blood Pressure 169/72 H Pulse Oximetry 93 L 09/19/18 05:00 09/19/18 06:00 09/19/18 07:00 Temperature 98.7 F Pulse Rate 70 66 67 Respiratory Rate 17 Blood Pressure 174/75 H Pulse Oximetry 94 L 09/19/18 08:33 09/19/18 09:00 09/19/18 13:00 Temperature Pulse Rate 64 63 Respiratory Rate Blood Pressure Pulse Oximetry 95 09/19/18 14:00 09/19/18 15:00 09/19/18 16:00 Temperature 98 F Pulse Rate 65 68 62 Respiratory Rate 18 Blood Pressure 148/70 H Pulse Oximetry 99 Intake & Output 09/18/18 09/19/18 09/19/18 18:59 06:59 18:59 Intake Total 960 / 960 480 / 480 Output Total 50 / 50 200 / 200 Balance 910 / 910 280 / 280 Weight 65.5 kg Intake: Oral 960 / 960 480 / 480 Output: Urine 50 / 50 200 / 200 Other: Date of Last Bowel Movement 09/17/18 09/17/18 <Des Toro - Last Filed: 09/19/18 17:26> Assessment and Plan - Assessment (1) ESRD (end stage renal disease) on dialysis Code(s): N18.6 - End stage renal disease; Z99.2 - Dependence on renal dialysis Status: Acute Plan: ESRD on hemodialysis on Wednesday, Wednesday and Wednesday. AVG right upper arm Plan Continue Renal, high protein diet. Continue PhosLo. Epogen ordered with dialysis. Hemodialysis yesterday tolerated well Vascular consulted for evaluation for possible steel syndrome in right hand. (2) Fluid overload Code(s): E87.70 - Fluid overload, unspecified Status: Acute Qualifiers: Hypervolemia type: unspecified Qualified Code(s): E87.70 - Fluid overload, unspecified Plan: Continue Bumex Shortness of breath improving. (3) Hypertension Code(s): I10 - Essential (primary) hypertension Status: Acute Plan: Better controlled On Coreg, hydralazine, and nifedipine. Will monitor <Jessica Clemons - Last Filed: 09/15/18 10:27> - Assessment (1) ESRD (end stage renal disease) on dialysis Code(s): N18.6 - End stage renal disease; Z99.2 - Dependence on renal dialysis Status: Acute Plan: Patient seen an examined, agree with above. Vascular consulted for possible steal syndrome. HD to continue 3 times a week. (2) Fluid overload Code(s): E87.70 - Fluid overload, unspecified Status: Acute Qualifiers: Hypervolemia type: unspecified Qualified Code(s): E87.70 - Fluid overload, unspecified (3) Hypertension Code(s): I10 - Essential (primary) hypertension Status: Acute <Des Toro - Last Filed: 09/19/18 17:26>
--- NOTE | 2018-09-15 15:15 | P.CONVS ---
History of Present Illness Service: Cardiovascular Consult date: 09/15/18 Reason for Consult: Right thumb wound s/p R UE AVF Primary Care Provider: No Primary Care Physician Chief Complaint: Right thumb wound/ Right hand pain History of Present Illness: Ms. Maynard is a 67/F with a PMH of COPD, CHF, HTN, Hyperlipidemia and ESRD on HD Pt was seen in our out pt clinic for an AVF evaluation in 05/2018 Pt underwent a R UE brach-ax with PTFE due to a lack of suitable autogenous conduit (06/14/18) Pt was cleared for access cannulation on 07/22/18 Pt admitted for SOB several days ago, and c/o R hand pain with a dry wound to her Right thumb (lateral aspect) first appearing 6w ago. Review of Systems Constitutional: Denies chills, Denies fever(s) Cardiovascular: Denies chest pain, Denies shortness of breath Musculoskeletal: Reports numbness (right hand), Reports tingling (right hand), Reports other (Right hand ) Skin/Breast: Reports non-healing lesions (Right thumb (dry wound)) PMFSH - History History Provided By: Patient - Medical History Medical History: Medical History (Last Reviewed 09/15/18 @ 15:06 by Erica Mg) A-V fistula Anemia CAD (coronary artery disease) CAD (coronary artery disease) CHF (congestive heart failure) CHF (congestive heart failure) COPD (chronic obstructive pulmonary disease) COPD (chronic obstructive pulmonary disease) Chronic back pain Diabetes Diabetes ESRD (end stage renal disease) on dialysis End stage kidney disease HLD (hyperlipidemia) Hemodialysis access, AV graft Hemodialysis access, AV graft Hyperkalemia Hypertension Hypoxia - Surgical History Surgical History: Surgical History (Last Reviewed 09/11/18 @ 03:41 by Linwood Shin) H/O laminectomy H/O vaginal hysterectomy H/O: History of laser refractive surgery History of tonsillectomy Hx of appendectomy Hx of heart artery stent Stented coronary artery - Family History Family History: Family History (Last Reviewed 09/15/18 @ 15:07 by Erica Mg) Other ALS (amyotrophic lateral sclerosis) Multiple sclerosis - Social History I have reviewed the patient's Social History: Yes - Tobacco History Second Hand Smoke Exposure: No Tobacco Use In Past 30 Days: No Smoking Status: Former smoker Tobacco Type: Cigarettes Packs Per Day: 1 (1ppd) Years Smoked: 35 Smoking End Date: The patient reports that she quit smoking 16 years ago. - Alcohol History How Often Do You Have a Drink Containing Alcohol: Monthly or less - Substance Use History Substance History: No History of Abuse - Travel History Recent Travel in the [place] Within the Last 8 Weeks: No Recent Travel Out of the Country Within the Last 8 Weeks: No - Immunization History Tetanus Immunization: Unsure Hx Influenza Vaccine This Season: Yes Medications and Allergies Allergies Allergy/AdvReac Type Severity Reaction Status Date / Time propoxyphene Allergy Intermediate RASH Verified 07/18/18 07:41 Home Medications Medication Instructions Recorded Confirmed Type albuterol sulfate [Ventolin HFA] 2 puff INHALATION Q6H PRN 06/03/18 09/11/18 History aspirin 81 mg PO DAILY 06/03/18 09/11/18 History budesonide-formoterol [Symbicort] 2 puff INHALATION BID 06/03/18 09/11/18 History atorvastatin 80 mg PO HS 08/30/18 09/11/18 History insulin detemir U-100 [Levemir 20 unit SUBCUT BID 08/30/18 09/11/18 History FlexTouch U-100 Insuln] mupirocin 1 applic TOPICAL BID 08/30/18 09/11/18 History prasugrel 10 mg PO DAILY 08/30/18 09/11/18 History vit B comp no.2-ghigp-E-biotin 1 tab PO DAILY 08/30/18 09/11/18 History [Nephro-Bonita Rx] Active Medications: Active Medications Acetaminophen (Tylenol) 650 mg PO Q4H PRN PRN Reason: Temp > 100.4 OR PAIN 1-5 Last Admin: 09/11/18 21:37 Dose: 650 mg Acetaminophen (Tylenol) 650 mg PO UNSCH PRN PRN Reason: SEE LABEL COMMENTS Hydrocodone Bitart/Acetaminophen ([place] 5/325) 1 tab PO Q4H PRN PRN Reason: pain 1 to 10 Last Admin: 09/15/18 11:24 Dose: 1 tab Al Hydroxide/Mg Hydroxide (Milk Of Magnesia Liq) 30 ml PO Q12H PRN PRN Reason: Mild Constipation Albuterol (Duoneb Neb (Prn)) 1 ampul NEB Q4HR NEB PRN PRN Reason: SOB/WHEEZING Last Admin: 09/15/18 02:57 Dose: 1 ampul Aspirin (Ecotrin) 81 mg PO DAILY [facility] Last Admin: 09/15/18 08:41 Dose: 81 mg Atorvastatin Calcium (Lipitor) 80 mg PO HS [facility] Last Admin: 09/14/18 20:51 Dose: 80 mg Bisacodyl (Dulcolax Supp) 10 mg RECTAL DAILY PRN PRN Reason: SEVERE CONSITIPATION Budesonide/Formoterol Fumarate (Symbicort 160/4.5 Mcg Inh) 2 puff INH BID [facility] Last Admin: 09/15/18 08:46 Dose: Not Given Bumetanide (Bumex) 1 mg PO BID [facility] Last Admin: 09/15/18 08:42 Dose: 1 mg Calcium Acetate (Phoslo) 667 mg PO TID [facility] Last Admin: 09/15/18 12:21 Dose: 667 mg Carvedilol (Coreg) 6.25 mg PO BID [facility] Last Admin: 09/15/18 08:41 Dose: 6.25 mg Clonidine HCl (Catapres) 0.1 mg PO UNSCH PRN PRN Reason: SEE LABEL COMMENTS Dextrose (D50w Vial) 50 ml IV.PUSH UNSCH PRN PRN Reason: PER HYPOGLYCEMIA PROTOCOL Last Admin: 09/13/18 09:00 Dose: 50 ml Diphenhydramine HCl (Benadryl) 25 mg PO UNSCH PRN PRN Reason: SEE LABEL COMMENTS Epoetin Low (Epogen Inj) 6,000 unit IV.PUSH UNSCH PRN PRN Reason: SEE LABEL COMMENTS Gabapentin (Neurontin) 100 mg PO [facility] Last Admin: 09/14/18 20:51 Dose: 100 mg Gelatin (Gelfoam 12 Mm/7 Mm Topical) 1 foam TOPICAL PRN PRN PRN Reason: help stop bleeding from site Gentamicin Sulfate (Gentamicin Inj) 20 mg OTHER WITH DIALYSIS PRN PRN Reason: Dwell Gentamycin Lock Glucagon (Glucagon Inj) 1 mg OTHER PRN PRN PRN Reason: for Hypoglycemia Protocol Heparin Sodium (Porcine) (Heparin Inj) 8,000 units OTHER WITH DIALYSIS PRN PRN Reason: for machine prime Heparin Sodium (Porcine) (Heparin Inj) 1,000 units OTHER WITH DIALYSIS PRN PRN Reason: Dwell Heparin to Fill Catheter Hydralazine HCl (Apresoline) 100 mg PO TID [facility] Last Admin: 09/15/18 12:21 Dose: 100 mg Albumin Human (Flexbumin 25% Inj) 100 mls @ 60 mls/hr IV.SIG WITH DIALYSIS PRN PRN Reason: hypotension / volume replace Sodium Chloride (Ns Inj) 1,000 mls @ 0 mls/hr OTHER .Q0M PRN PRN Reason: for prime and rinse back Sodium Chloride (Ns Inj) 1,000 mls @ 200 mls/hr OTHER .Q5H PRN PRN Reason: for dialyzer flush PRN Sodium Chloride (Ns Inj) 1,000 mls @ 0 mls/hr IV.CONT .Q0M PRN PRN Reason: hypotension / volume replace Insulin Aspart (Novolog Insulin Correctional Sugar Inj) 0 unit SQ ACHS [facility]; Protocol Last Admin: 09/15/18 12:21 Dose: 9 unit Lactulose (Lactulose Liq) 30 ml PO DAILY PRN PRN Reason: SEVERE CONSITIPATION Mannitol (Mannitol Inj) 12.5 gm IV.PUSH UNSCH PRN PRN Reason: hypotension / volume replace Nifedipine (Procardia Xl) 60 mg PO DAILY [facility] Last Admin: 09/15/18 11:23 Dose: 60 mg Nitroglycerin (Nitrostat Sl) 0.4 mg SL Q5M PRN PRN Reason: CHEST PAIN Ondansetron HCl (Zofran Inj) 4 mg IV.PUSH Q6H PRN PRN Reason: NAUSEA OR VOMITING Last Admin: 09/13/18 14:28 Dose: 4 mg Ondansetron HCl (Zofran Inj) 4 mg IV.PUSH UNSCH PRN PRN Reason: NAUSEA OR VOMITING Prasugrel (Effient) 10 mg PO DAILY [facility] Last Admin: 09/15/18 08:42 Dose: 10 mg Senna/Docusate Sodium (Jocelyn-Colace) 1 tab PO BID [facility] Last Admin: 09/15/18 08:41 Dose: 1 tab Sennosides (Senokot) 17.2 mg PO Q12H PRN PRN Reason: Moderate Constipation Sodium Chloride (Ns Flush) 5 ml IV.FLUSH PRN PRN PRN Reason: flush each lumen during HD Sodium Chloride (Ns Flush) 2 ml IV.FLUSH BID [facility] Last Admin: 09/15/18 08:43 Dose: 2 ml Sodium Chloride (Ns Flush) 2 ml IV.FLUSH PRN PRN PRN Reason: FLUSH AFTER USING IV ACCESS Physical Exam Vital Signs / I&O: Vital Signs 09/14/18 15:00 09/14/18 16:00 09/14/18 17:00 Temperature 98.4 F Pulse Rate 67 68 74 Respiratory Rate 19 19 21 Blood Pressure 156/70 H 165/70 H Pulse Oximetry 96 94 L 86 L 09/14/18 17:01 09/14/18 18:00 09/14/18 18:01 Temperature Pulse Rate 74 74 73 Respiratory Rate 20 24 21 Blood Pressure 136/60 164/65 H Pulse Oximetry 87 L 93 L 92 L 09/14/18 19:00 09/14/18 20:00 09/14/18 21:00 Temperature 98.3 F Pulse Rate 84 84 76 Respiratory Rate 22 Blood Pressure 146/67 H Pulse Oximetry 93 L 09/14/18 22:00 09/14/18 22:57 09/14/18 23:00 Temperature Pulse Rate 70 69 67 Respiratory Rate 17 Blood Pressure Pulse Oximetry 09/15/18 00:00 09/15/18 01:00 09/15/18 02:00 Temperature 98.4 F Pulse Rate 66 66 66 Respiratory Rate 22 Blood Pressure 159/71 H Pulse Oximetry 97 09/15/18 02:57 09/15/18 03:00 09/15/18 04:00 Temperature 97.9 F Pulse Rate 67 66 68 Respiratory Rate 15 22 Blood Pressure 161/72 H Pulse Oximetry 96 09/15/18 05:00 09/15/18 06:00 09/15/18 07:00 Temperature Pulse Rate 68 69 70 Respiratory Rate Blood Pressure Pulse Oximetry 09/15/18 07:56 09/15/18 08:00 09/15/18 09:00 Temperature 97.3 F L Pulse Rate 70 70 70 Respiratory Rate 18 Blood Pressure 158/71 H Pulse Oximetry 97 09/15/18 10:00 09/15/18 11:00 09/15/18 11:02 Temperature Pulse Rate 70 81 Respiratory Rate Blood Pressure Pulse Oximetry 97 09/15/18 11:18 09/15/18 12:00 09/15/18 13:00 Temperature 97.3 F L Pulse Rate 81 80 80 Respiratory Rate 18 Blood Pressure 155/68 H Pulse Oximetry 98 Intake & Output 09/14/18 09/15/18 09/15/18 18:59 06:59 18:59 Intake Total 740 / 740 480 / 480 Output Total 6250 / 6250 Balance -5510 / -5510 480 / 480 Weight 64.5 kg Intake: Oral 740 / 740 480 / 480 Output: Urine 250 / 250 Hemodialysis Amount 6000 / 6000 Other: Date of Last Bowel Movement 09/14/18 09/13/18 09/13/18 Neuro: GCS 15 Speech Clear Neck: No JVD distention Heart: +S1,S2 Lungs: CTA resp even Vascular: palpable 1+ R radial pulse UE warm with equal audit intern strength + gifford arch signals noted per Doppler Dry ulceration to Right thumb lateral aspect of nail bed Extremities: UE 5/5 Laboratory Results - last 24 hr 09/14/18 09/14/18 09/14/18 11:15 18:17 20:48 WBC RBC Hgb Hct MCV MCH MCHC RDW Plt Count MPV Sodium Potassium Chloride Carbon Dioxide Anion Gap BUN Creatinine Estimated GFR POC Glucose 345 H 420 H Random Glucose Calcium Nasal Screen MRSA (PCR) Not detected 09/14/18 09/15/18 09/15/18 22:00 03:51 03:54 WBC 5.0 RBC 3.52 L Hgb 10.5 L D Hct 33.3 L MCV 94.7 MCH 29.9 MCHC 31.6 L RDW 16.8 Plt Count 212 D MPV 8.3 Sodium Potassium Chloride Carbon Dioxide Anion Gap BUN Creatinine Estimated GFR POC Glucose 360 H 254 H Random Glucose Calcium Nasal Screen MRSA (PCR) 09/15/18 09/15/18 09/15/18 03:54 08:02 11:28 WBC RBC Hgb Hct MCV MCH MCHC RDW Plt Count MPV Sodium 137 Potassium 3.9 Chloride 99 Carbon Dioxide 30.9 Anion Gap 7 BUN 24 H Creatinine 2.19 H Estimated GFR 22 L POC Glucose 341 H 350 H Random Glucose 261 H D Calcium 8.2 L D Nasal Screen MRSA (PCR) Assessment and Plan - Plan 67/F admitted with SOB presented with chronic access related hand ischemia Pt w/ palpable R UE radial pulse Right thumb w/ a dry ulceration for a duration of 6W Plan Ordered a WBI will review once resulted Planning an intervention early next week once Resp infection clears Pt made aware of plan Erica Mg [employer] [facility] [phone] - Attending Attestation I saw and examined the patient, agree with H[employer] OFFICER A/P: date of service 09/15/18 ESRD on HD vis RUE AVG RUE CLI with tissue loss due to steal syndrome No evidence of acute limb ischemia Awaiting RUE duplex US Will plan angiogram to evaluate inflow followed by AVG revision when acute illness resolved
--- NOTE | 2018-09-15 15:19 | P.PNVS ---
Subjective Subjective/Hospital Course: 09/15/2018 Vascular consult placed, however this is an established patient of Dr. Luna and he is already on the case Thanks J Objective Vital Signs / I&O: Vital Signs 09/14/18 16:00 09/14/18 17:00 09/14/18 17:01 Temperature 98.4 F Pulse Rate 68 74 74 Respiratory Rate 19 21 20 Blood Pressure 165/70 H 136/60 Pulse Oximetry 94 L 86 L 87 L 09/14/18 18:00 09/14/18 18:01 09/14/18 19:00 Temperature Pulse Rate 74 73 84 Respiratory Rate 24 21 Blood Pressure 164/65 H Pulse Oximetry 93 L 92 L 09/14/18 20:00 09/14/18 21:00 09/14/18 22:00 Temperature 98.3 F Pulse Rate 84 76 70 Respiratory Rate 22 Blood Pressure 146/67 H Pulse Oximetry 93 L 09/14/18 22:57 09/14/18 23:00 09/15/18 00:00 Temperature 98.4 F Pulse Rate 69 67 66 Respiratory Rate 17 22 Blood Pressure 159/71 H Pulse Oximetry 97 09/15/18 01:00 09/15/18 02:00 09/15/18 02:57 Temperature Pulse Rate 66 66 67 Respiratory Rate 15 Blood Pressure Pulse Oximetry 09/15/18 03:00 09/15/18 04:00 09/15/18 05:00 Temperature 97.9 F Pulse Rate 66 68 68 Respiratory Rate 22 Blood Pressure 161/72 H Pulse Oximetry 96 09/15/18 06:00 09/15/18 07:00 09/15/18 07:56 Temperature 97.3 F L Pulse Rate 69 70 70 Respiratory Rate 18 Blood Pressure 158/71 H Pulse Oximetry 97 09/15/18 08:00 09/15/18 09:00 09/15/18 10:00 Temperature Pulse Rate 70 70 70 Respiratory Rate Blood Pressure Pulse Oximetry 09/15/18 11:00 09/15/18 11:02 09/15/18 11:18 Temperature 97.3 F L Pulse Rate 81 81 Respiratory Rate 18 Blood Pressure 155/68 H Pulse Oximetry 97 98 09/15/18 12:00 09/15/18 13:00 Temperature Pulse Rate 80 80 Respiratory Rate Blood Pressure Pulse Oximetry Intake & Output 09/14/18 09/15/18 09/15/18 18:59 06:59 18:59 Intake Total 740 / 740 480 / 480 Output Total 6250 / 6250 Balance -5510 / -5510 480 / 480 Weight 64.5 kg Intake: Oral 740 / 740 480 / 480 Output: Urine 250 / 250 Hemodialysis Amount 6000 / 6000 Other: Date of Last Bowel Movement 09/14/18 09/13/18 09/13/18 Laboratory Results - last 24 hr 09/14/18 09/14/18 09/14/18 11:15 18:17 20:48 WBC RBC Hgb Hct MCV MCH MCHC RDW Plt Count MPV Sodium Potassium Chloride Carbon Dioxide Anion Gap BUN Creatinine Estimated GFR POC Glucose 345 H 420 H Random Glucose Calcium Nasal Screen MRSA (PCR) Not detected 09/14/18 09/15/18 09/15/18 22:00 03:51 03:54 WBC 5.0 RBC 3.52 L Hgb 10.5 L D Hct 33.3 L MCV 94.7 MCH 29.9 MCHC 31.6 L RDW 16.8 Plt Count 212 D MPV 8.3 Sodium Potassium Chloride Carbon Dioxide Anion Gap BUN Creatinine Estimated GFR POC Glucose 360 H 254 H Random Glucose Calcium Nasal Screen MRSA (PCR) 09/15/18 09/15/18 09/15/18 03:54 08:02 11:28 WBC RBC Hgb Hct MCV MCH MCHC RDW Plt Count MPV Sodium 137 Potassium 3.9 Chloride 99 Carbon Dioxide 30.9 Anion Gap 7 BUN 24 H Creatinine 2.19 H Estimated GFR 22 L POC Glucose 341 H 350 H Random Glucose 261 H D Calcium 8.2 L D Nasal Screen MRSA (PCR) Assessment and Plan - Plan 67/F admitted with SOB presented with chronic access related hand ischemia Pt w/ palpable R UE radial pulse Right thumb w/ a dry ulceration for a duration of 6W Plan Ordered a WBI will review once resulted Planning an intervention early next week once Resp infection clears Pt made aware of plan Erica Mg NP [facility] [phone]
--- NOTE | 2018-09-15 16:24 | P.PNIM ---
Subjective Interval history: Plastic surgery note reviewed . Patient reports she is feeling better overall. Breathing more comfortable. Physical Exam Vital signs: Vital Signs 09/14/18 17:00 09/14/18 17:01 09/14/18 18:00 Temperature Pulse Rate 74 74 74 Respiratory Rate 21 20 24 Blood Pressure 136/60 Pulse Oximetry 86 L 87 L 93 L 09/14/18 18:01 09/14/18 19:00 09/14/18 20:00 Temperature 98.3 F Pulse Rate 73 84 84 Respiratory Rate 21 22 Blood Pressure 164/65 H 146/67 H Pulse Oximetry 92 L 93 L 09/14/18 21:00 09/14/18 22:00 09/14/18 22:57 Temperature Pulse Rate 76 70 69 Respiratory Rate 17 Blood Pressure Pulse Oximetry 09/14/18 23:00 09/15/18 00:00 09/15/18 01:00 Temperature 98.4 F Pulse Rate 67 66 66 Respiratory Rate 22 Blood Pressure 159/71 H Pulse Oximetry 97 09/15/18 02:00 09/15/18 02:57 09/15/18 03:00 Temperature Pulse Rate 66 67 66 Respiratory Rate 15 Blood Pressure Pulse Oximetry 09/15/18 04:00 09/15/18 05:00 09/15/18 06:00 Temperature 97.9 F Pulse Rate 68 68 69 Respiratory Rate 22 Blood Pressure 161/72 H Pulse Oximetry 96 09/15/18 07:00 09/15/18 07:56 09/15/18 08:00 Temperature 97.3 F L Pulse Rate 70 70 70 Respiratory Rate 18 Blood Pressure 158/71 H Pulse Oximetry 97 09/15/18 09:00 09/15/18 10:00 09/15/18 11:00 Temperature Pulse Rate 70 70 81 Respiratory Rate Blood Pressure Pulse Oximetry 09/15/18 11:02 09/15/18 11:18 09/15/18 12:00 Temperature 97.3 F L Pulse Rate 81 80 Respiratory Rate 18 Blood Pressure 155/68 H Pulse Oximetry 97 98 09/15/18 13:00 09/15/18 15:16 09/15/18 15:20 Temperature 97.3 F L Pulse Rate 80 67 Respiratory Rate 18 Blood Pressure 156/69 H Pulse Oximetry 94 L 96 09/15/18 16:19 Temperature Pulse Rate Respiratory Rate 18 Blood Pressure Pulse Oximetry Intake & Output 09/14/18 09/15/18 09/15/18 18:59 06:59 18:59 Intake Total 740 / 740 480 / 480 Output Total 6250 / 6250 Balance -5510 / -5510 480 / 480 Weight 64.5 kg Intake: Oral 740 / 740 480 / 480 Output: Urine 250 / 250 Hemodialysis Amount 6000 / 6000 Other: Date of Last Bowel Movement 09/14/18 09/13/18 09/13/18 Narrative: GENERAL: No acute distress SKIN: Warm and dry. NECK: Supple, trachea midline. Mild JVD distention. CARDIOVASCULAR: Regular rate and rhythm without murmurs, gallops, or rubs. Right AVG. RESPIRATORY: Air movement is fair. Diminished breath sounds at the bases bilaterally. GASTROINTESTINAL: Abdomen soft, non-tender, nondistended. MUSCULOSKELETAL: Right distal thumb with small dry wound, involved nail bed. Results - Labs CBC & Chem 7: 09/15/18 03:54 09/15/18 03:54 Laboratory Results - last 24 hr 09/14/18 09/14/18 09/14/18 18:17 20:48 22:00 WBC RBC Hgb Hct MCV MCH MCHC RDW Plt Count MPV Sodium Potassium Chloride Carbon Dioxide Anion Gap BUN Creatinine Estimated GFR POC Glucose 345 H 420 H 360 H Random Glucose Calcium 09/15/18 09/15/18 09/15/18 03:51 03:54 03:54 WBC 5.0 RBC 3.52 L Hgb 10.5 L D Hct 33.3 L MCV 94.7 MCH 29.9 MCHC 31.6 L RDW 16.8 Plt Count 212 D MPV 8.3 Sodium 137 Potassium 3.9 Chloride 99 Carbon Dioxide 30.9 Anion Gap 7 BUN 24 H Creatinine 2.19 H Estimated GFR 22 L POC Glucose 254 H Random Glucose 261 H D Calcium 8.2 L D 09/15/18 09/15/18 08:02 11:28 WBC RBC Hgb Hct MCV MCH MCHC RDW Plt Count MPV Sodium Potassium Chloride Carbon Dioxide Anion Gap BUN Creatinine Estimated GFR POC Glucose 341 H 350 H Random Glucose Calcium Assessment and Plan - Assessment (1) CHF (congestive heart failure) Code(s): I50.9 - Heart failure, unspecified Status: Acute (2) Pleural effusion Code(s): J90 - Pleural effusion, not elsewhere classified Status: Acute (3) Hypoxia Code(s): R09.02 - Hypoxemia Status: Acute (4) ESRD on dialysis Code(s): N18.6 - End stage renal disease; Z99.2 - Dependence on renal dialysis Status: Acute (5) DM (diabetes mellitus) Code(s): E11.9 - Type 2 diabetes mellitus without complications Status: Acute - Plan 67-year-old female on hemodialysis admitted with acute diastolic CHF. Patient is also a brittle diabetic who presented with blood sugar of 700. She has been stable in the [facility], had dialysis yesterday but had an acute hypoglycemic episode this morning. Patient is transferred to [facility]. CHF: Acute on Chronic. Diastolic. Echo 08/09/18 w/ EF 50-55%, BNP 2644, CXR w / chronic effusions, images reviewed. Continue home Bumex, monitor I/O, appreciate nephrology input. Dialysis as scheduled. Seems to be stable from a respiratory standpoint. Acute symptomatic hypoglycemia/DM: Brittle diabetic, presented with BS in the 700's. Glucose in the 20s on 09/13/18. Received Levemir the night before. Treated with D50 and IVF. - Continue SSI with accuchecks. - Diabetic diet. - Blood glucose in the 300's again. Resume Levemir at a lower dose 10 unit in AM. CAD, abnormalities on tele with concerns for Atrial flutter: No cardiovascular complaints. Unsure if she has a history of Afib. - Patient evaluated by Cardiology, Dr. Reddy. tele findings believed to be artifacts - Continue Coreg, Effient, Statin. Monitor on Tele Pleural Effusion: recent admit w/ large left effusion s/p thoracentesis/chest tube, CXR w/ pleural effusions, left greater than right, however stable. -Pulmonology following - Continue current treatment. If Effusion stable. Right distal thumb non healing wound/ ?Steal syndrome: - Agree with Plastic surgery regarding Steal syndrome, consult Vascular for assistance, patient known to the vascular program. Multiple pustule type wounds: Patient reports she has been having different small wounds all over her body. I note a history of bacteremia earlier this year and the cho at the time could not rule out vegetation. Although low on the differential but will obtain blood cultures and echo to ensure no septic emboli as a source. Hypoxemia: O2 sat 86% on RA upon arrival, O2 dependent at night per patient, currently O2 sat 94% on 4L NC, monitor closely. DuoNeb prn. -Respiratory status seems to be stable today. ESRD on HD: M/W/F -Appreciate nephrology following. DVT Prophylaxis: SCD/Teds Discharge Planning: PT to evaluate. Consult pending.
--- NOTE | 2018-09-15 18:25 | ECHRPT ---
EXAM DATE: 09/15/2018 12:00 AM EDT AGE/SEX: 67 years / Female INDICATIONS: right finger numbness, posse ischemia CLINICAL DATA: This is the patient's initial encounter. Patient reports that signs and symptoms have been present for 3 days and indicates a pain score of 5/10. MEDICAL/SURGICAL HISTORY: . av fistula, anemia, cad, chf, chronic back pain, copd, dm, esrd, he modialysis, hyperlipidemia, hyperkalemia, hypertension, hypoxia . laminectomy, vag hysterectomy, c s ection, laser refr sx, tonsillectomy, appendectomy, heart artery stent COMPARISON: No prior exams available for comparison. TECHNIQUE: Segmental examination of the upper extremities was performed. Pulsed-cuff waveform tracin gs and pressures were recorded. PRESSURES (mmHg): Upper Arm : RIGHT: no bp, LEFT: 156 Lower Arm: RIGHT: 64, LEFT: Digit 1 : RIGHT: R thumb 27, fbi:0.17, LEFT: Digit 2 : RIGHT: R index 21, fbi:0.13, LEFT: Digit 3 : RIGHT: R middle 26, fbi: 0.17, LEFT: Digit 4 : RIGHT: R 4th dig 21, fbi 0.13, LEFT: Digit 5 : RIGHT: R pinky 25, fbi 0.16, LEFT: RIGHT: , LEFT: CONCLUSION: 1. Diminished finger brachial indices at each digit most characteristic of steno-occlusive disease i n the right upper extremity. Electronically signed by: Amadou Salazar MD 09/15/2018 6:24 PM EDT
--- NOTE | 2018-09-15 18:29 | P.PNPL ---
Subjective Interval history: 67 YOWF with CHF,COPD, ch pl eff, DM Admitted with SOB Tr CV step down Breathing better has cough with small amount of sputum No Fever Physical Exam Vital signs: Vital Signs 09/14/18 19:00 09/14/18 20:00 09/14/18 21:00 Temperature 98.3 F Pulse Rate 84 84 76 Respiratory Rate 22 Blood Pressure 146/67 H Pulse Oximetry 93 L 09/14/18 22:00 09/14/18 22:57 09/14/18 23:00 Temperature Pulse Rate 70 69 67 Respiratory Rate 17 Blood Pressure Pulse Oximetry 09/15/18 00:00 09/15/18 01:00 09/15/18 02:00 Temperature 98.4 F Pulse Rate 66 66 66 Respiratory Rate 22 Blood Pressure 159/71 H Pulse Oximetry 97 09/15/18 02:57 09/15/18 03:00 09/15/18 04:00 Temperature 97.9 F Pulse Rate 67 66 68 Respiratory Rate 15 22 Blood Pressure 161/72 H Pulse Oximetry 96 09/15/18 05:00 09/15/18 06:00 09/15/18 07:00 Temperature Pulse Rate 68 69 70 Respiratory Rate Blood Pressure Pulse Oximetry 09/15/18 07:56 09/15/18 08:00 09/15/18 09:00 Temperature 97.3 F L Pulse Rate 70 70 70 Respiratory Rate 18 Blood Pressure 158/71 H Pulse Oximetry 97 09/15/18 10:00 09/15/18 11:00 09/15/18 11:02 Temperature Pulse Rate 70 81 Respiratory Rate Blood Pressure Pulse Oximetry 97 09/15/18 11:18 09/15/18 12:00 09/15/18 13:00 Temperature 97.3 F L Pulse Rate 81 80 80 Respiratory Rate 18 Blood Pressure 155/68 H Pulse Oximetry 98 09/15/18 15:16 09/15/18 15:20 09/15/18 16:19 Temperature 97.3 F L Pulse Rate 67 Respiratory Rate 18 18 Blood Pressure 156/69 H Pulse Oximetry 94 L 96 09/15/18 17:29 Temperature Pulse Rate Respiratory Rate Blood Pressure Pulse Oximetry 96 Intake & Output 09/14/18 09/15/18 09/15/18 18:59 06:59 18:59 Intake Total 740 / 740 480 / 480 1200 / 1200 Output Total 6250 / 6250 0 / 0 Balance -5510 / -5510 480 / 480 1200 / 1200 Weight 64.5 kg Intake: Oral 740 / 740 480 / 480 1200 / 1200 Output: Urine 250 / 250 0 / 0 Hemodialysis Amount 6000 / 6000 Other: Date of Last Bowel Movement 09/14/18 09/13/18 09/13/18 GENERAL: Elderly WF, weak, NAD SKIN: Warm and dry. HEAD: Normocephalic. EYES: No scleral icterus. No injection or drainage. NECK: Supple, trachea midline. No JVD or lymphadenopathy. CARDIOVASCULAR: Regular rate and rhythm without murmurs, gallops, or rubs. RESPIRATORY: Breath sounds equal bilaterally. No accessory muscle use. GASTROINTESTINAL: Abdomen soft, non-tender, nondistended. MUSCULOSKELETAL: No cyanosis, or edema. BACK: Nontender without obvious deformity. No CVA tenderness. Assessment and Plan - Plan IMPRESSION: 1. Respiratory failure. 2. Hypoxia. 3. Morbid obesity. 4. Likely sleep apnea. 5. Osteomyelitis. 6. Pneumonia. 7. Pulmonary edema. 8. Renal insufficiency. PLAN: Supplement [address] effusion, stable Diurease with Bumex Hemodialysis per renal.
[2018-09-15] MEDS: Gabapentin 100 MG Capsule PO SCH (21:45)
--- NOTE | 2018-09-15 22:11 | ECHRPT ---
Indication: Coronary Atherosclerosis CONCLUSIONS Normal left ventricular size. Mild to moderate concentric left ventricular hypertrophy. Left ventricular systolic function is low normal with an estimated ejection fraction of 50%. Normal wall motion. The left atrial size is mild to moderately dilated. Mild mitral valve regurgitation. Mild mitral leaflet thickening and mild mitral annular calcificati on is present. There is mild tricuspid valve regurgitation. The estimated pulmonary arterial pressure is 40 mmHg. Trileaflet aortic valve. Moderate aortic valve sclerosis is present. There is a trivial pericardial effusion present. A left sided pleural effusion is noted. BP: / HR: Rhythm: MEASUREMENTS (Male / Female) Normal Values Technical Quality:Good 2D ECHO LV Diastolic Diameter PLAX 5.0 cm 4.2 - 5.9 / 3.9 - 5.3 cm LV Systolic Diameter PLAX 3.5 cm IVS Diastolic Thickness 1.2 cm 0.6 - 1.0 / 0.6 - 0.9 cm LVPW Diastolic Thickness 1.2 cm 0.6 - 1.0 / 0.6 - 0.9 cm LV Relative Wall Thickness 0.5 RV Internal Dim ED PLAX 4.0 cm LVOT Diameter 2.0 cm Aortic Root Diameter 2.9 cm LA Systolic Diameter LX 4.9 cm 3.0 - 4.0 / 2.7 - 3.8 cm DOPPLER AV Peak Velocity 195.0 cm/s AV Peak Gradient 15.2 mmHg LVOT Peak Velocity 116.0 cm/s LVOT Peak Gradient 5.4 mmHg AV Area Cont Eq pk 1.9 cm Mitral E Point Velocity 91.3 cm/s Mitral A Point Velocity 102.0 cm/s Mitral E to A Ratio 0.9 LV E' Lateral Velocity 8.3 cm/s Mitral E to LV E' Lateral Ratio 11.0 LV E' Septal Velocity 6.2 cm/s Mitral E to LV E' Septal Ratio 14.6 TR Peak Velocity 276.0 cm/s TR Peak Gradient 30.5 mmHg Right Atrial Pressure 10.0 mmHg Pulmonary Artery Systolic Pressu 40.5 mmHg Right Ventricular Systolic Press 40.5 mmHg PV Peak Velocity 92.3 cm/s PV Peak Gradient 3.4 mmHg FINDINGS LEFT VENTRICLE Normal left ventricular size. Mild to moderate concentric left ventricular hypertrophy. Left ventricular systolic function is low normal with an estimated ejection fraction of 50%. Normal wall motion. RIGHT VENTRICLE Normal right ventricular size and systolic function. LEFT ATRIUM The left atrial size is mild to moderately dilated. RIGHT ATRIUM The right atrial size is severely dilated. ATRIAL SEPTUM Normal atrial septal thickness without atrial level shunting by limited color doppler interrogation. AORTA The aortic root and proximal ascending aorta are normal in size on limited imaging. MITRAL VALVE Mild mitral valve regurgitation. Mild mitral leaflet thickening and mild mitral annular calcificati on is present. AORTIC VALVE Trileaflet aortic valve. Moderate aortic valve sclerosis is present. TRICUSPID VALVE Structurally normal tricuspid valve. There is mild tricuspid valve regurgitation. The estimated pulmonary arterial pressure is 40 mmHg. PULMONARY VALVE No pulmonary valve regurgitation or stenosis. VESSELS The inferior vena cava is dilated. PERICARDIUM There is a trivial pericardial effusion present. A left sided pleural effusion is noted. Fuad Shaikh MD (Electronically Signed) Final Date:15 September 2018 22:11
[2018-09-16] MEDS: Insulin NovoLOG Aspart Correctional Sugar Inj SQ SCH ×5 (03:52→21:12)
[2018-09-16 05:16] LABS: Hemoglobin 10.8 gm/dL (11.6-15.3); Mean Corpuscular HGB Conc 31.9 % (32.0-36.0); Mean Corpuscular Hemoglobin 30.4 pg (27.0-34.0); Mean Corpuscular Volume 95.3 fL (80.0-100.0); Mean Platelet Volume 8.6 fL (7.0-11.0); Platelet Count 231 th/mm3 (150-450); Red Blood Count 3.57 mil/mm3 (4.00-5.30); Red Cell Distribution Width 16.7 % (11.6-17.2); White Blood Count 8.2 th/mm3 (4.0-11.0)
[2018-09-16 05:42] LABS: Carbon Dioxide 27.7 meq/L (21.0-32.0); Potassium 4.4 meq/L (3.5-5.1)
[2018-09-16] MEDS: Calcium Acetate 667 MG Capsule PO SCH ×3 (08:42→17:42)
[2018-09-16] MEDS: Carvedilol 6.25 MG Tablet PO SCH ×3 (08:44→21:10)
[2018-09-16] MEDS: Insulin Detemir Inj 1,000 UNIT/10 ML Vial SQ SCH (08:45)
[2018-09-16] MEDS: Sodium Chloride 0.9% 2 ML Flush BID IV.FLUSH SCH ×2 (08:45→21:12)
[2018-09-16] MEDS: Senna/Docusate Sodium 8.6/50 MG Tablet PO SCH ×2 (08:49→21:10)
[2018-09-16] MEDS: Budesonide-Formoterol 160/4.5 MCG 6 GM Inhaler INH SCH ×2 (08:49→21:14)
--- NOTE | 2018-09-16 10:40 | P.PNNP ---
Subjective Interval history: Seen during hemodialysis tolerating well. Reports that last night she had increased shortness of breath. Continues to have right hand pain. <Jessica Clemons - Last Filed: 09/16/18 10:34> Physical Exam Vital signs: Vital Signs 09/15/18 11:00 09/15/18 11:02 09/15/18 11:18 Temperature 97.3 F L Pulse Rate 81 81 Respiratory Rate 18 Blood Pressure 155/68 H Pulse Oximetry 97 98 09/15/18 12:00 09/15/18 13:00 09/15/18 14:00 Temperature Pulse Rate 80 80 64 Respiratory Rate Blood Pressure Pulse Oximetry 09/15/18 15:00 09/15/18 15:16 09/15/18 15:20 Temperature 97.3 F L Pulse Rate 65 67 Respiratory Rate 18 Blood Pressure 156/69 H Pulse Oximetry 94 L 96 09/15/18 16:00 09/15/18 16:19 09/15/18 17:00 Temperature Pulse Rate 64 80 Respiratory Rate 18 Blood Pressure Pulse Oximetry 09/15/18 17:29 09/15/18 18:00 09/15/18 19:00 Temperature 98.0 F Pulse Rate 66 65 Respiratory Rate 16 Blood Pressure 136/60 Pulse Oximetry 96 94 L 09/15/18 20:00 09/15/18 20:25 09/15/18 21:00 Temperature Pulse Rate 68 67 68 Respiratory Rate 20 Blood Pressure Pulse Oximetry 09/15/18 22:00 09/15/18 23:00 09/15/18 23:58 Temperature 98.2 F Pulse Rate 70 70 74 Respiratory Rate 16 18 Blood Pressure 152/67 H Pulse Oximetry 94 L 09/16/18 00:00 09/16/18 01:00 09/16/18 02:00 Temperature Pulse Rate 70 76 78 Respiratory Rate Blood Pressure Pulse Oximetry 09/16/18 03:00 09/16/18 03:28 09/16/18 04:00 Temperature 98.2 F Pulse Rate 74 72 72 Respiratory Rate 16 18 Blood Pressure 165/71 H Pulse Oximetry 91 L 09/16/18 05:00 09/16/18 06:00 09/16/18 07:00 Temperature 97.7 F Pulse Rate 85 85 64 Respiratory Rate Blood Pressure 165/65 H Pulse Oximetry 94 L 09/16/18 08:00 09/16/18 09:00 09/16/18 10:00 Temperature Pulse Rate 64 77 75 Respiratory Rate Blood Pressure Pulse Oximetry 94 L Intake & Output 09/15/18 09/16/18 09/16/18 18:59 06:59 18:59 Intake Total 1200 / 1200 720 / 720 Output Total 0 / 0 300 / 300 Balance 1200 / 1200 420 / 420 Weight 65 kg Intake: Oral 1200 / 1200 720 / 720 Output: Urine 0 / 0 300 / 300 Other: Date of Last Bowel Movement 09/13/18 09/13/18 Narrative: GENERAL: No acute distress SKIN: Warm and dry. NECK: Supple, trachea midline. Mild JVD distention. CARDIOVASCULAR: Regular rate and rhythm without murmurs, gallops, or rubs. Right AVG. RESPIRATORY: Air movement is fair. Diminished breath sounds at the bases bilaterally. GASTROINTESTINAL: Abdomen soft, non-tender, nondistended. MUSCULOSKELETAL: Weakness, [place] <Gellermann,Jessica - Last Filed: 09/16/18 10:34> Vital signs: Vital Signs 09/19/18 17:00 09/19/18 18:00 09/19/18 19:00 Temperature 98 F Pulse Rate 62 62 68 Respiratory Rate 18 Blood Pressure 148/70 H Pulse Oximetry 99 09/19/18 20:00 09/19/18 21:00 09/19/18 21:49 Temperature Pulse Rate 80 81 Respiratory Rate Blood Pressure Pulse Oximetry 96 09/19/18 22:00 09/19/18 23:00 09/20/18 00:00 Temperature 98.4 F Pulse Rate 82 67 65 Respiratory Rate 16 Blood Pressure 149/65 H Pulse Oximetry 99 09/20/18 01:00 09/20/18 02:00 09/20/18 02:34 Temperature Pulse Rate 65 65 144 H Respiratory Rate Blood Pressure Pulse Oximetry 09/20/18 03:00 09/20/18 04:00 09/20/18 05:00 Temperature 98.6 F Pulse Rate 68 64 65 Respiratory Rate 16 Blood Pressure 155/68 H Pulse Oximetry 98 09/20/18 05:54 09/20/18 07:00 09/20/18 08:00 Temperature 97.8 F Pulse Rate 65 63 63 Respiratory Rate 14 Blood Pressure 158/68 H Pulse Oximetry 94 L 94 L 09/20/18 09:00 09/20/18 09:36 09/20/18 10:00 Temperature Pulse Rate 63 62 Respiratory Rate 16 Blood Pressure Pulse Oximetry 09/20/18 11:00 09/20/18 12:00 09/20/18 13:00 Temperature 97.8 F Pulse Rate 64 61 62 Respiratory Rate 16 Blood Pressure 139/63 Pulse Oximetry 93 L 09/20/18 14:00 09/20/18 15:00 Temperature 97.5 F L Pulse Rate 58 L 58 L Respiratory Rate 15 Blood Pressure 117/58 L Pulse Oximetry 93 L Intake & Output 09/19/18 09/20/18 09/20/18 18:59 06:59 18:59 Intake Total 240 / 240 Output Total 3000 / 3000 Balance -2760 / -2760 Weight 64.5 kg Intake: Oral 240 / 240 Output: Urine 0 / 0 Hemodialysis Amount 3000 / 3000 <[place] Toro - Last Filed: 09/20/18 16:15> Assessment and Plan - Assessment (1) ESRD (end stage renal disease) on dialysis Code(s): N18.6 - End stage renal disease; Z99.2 - Dependence on renal dialysis Status: Acute Plan: ESRD on hemodialysis on Wednesday, Wednesday and Wednesday. AVG right upper arm Plan Continue Renal, high protein diet. Continue PhosLo. Epogen with dialysis. Seen during hemodialysis tolerating well, will remove fluid as tolerated Seen by vascular, planning intervention early next week. (2) Fluid overload Code(s): E87.70 - Fluid overload, unspecified Status: Acute Qualifiers: Hypervolemia type: unspecified Qualified Code(s): E87.70 - Fluid overload, unspecified Plan: Continue Bumex Shortness of breath last night (3) Hypertension Code(s): I10 - Essential (primary) hypertension Status: Acute Plan: Better controlled On Coreg, hydralazine, and nifedipine. Will monitor (4) Diabetes Code(s): E11.9 - Type 2 diabetes mellitus without complications Status: Acute Qualifiers: Diabetes mellitus skilled nursing insulin use: with skilled nursing use Plan: Blood sugars elevated Maintain blood sugars between 140 mg/dl to 180 mg/dl <Jessica Clemons - Last Filed: 09/16/18 10:34> - Assessment (1) ESRD (end stage renal disease) on dialysis Code(s): N18.6 - End stage renal disease; Z99.2 - Dependence on renal dialysis Status: Acute Plan: Patient seen and examined, agree with above. HD done today, for vascular AVF intervention next week. (2) Fluid overload Code(s): E87.70 - Fluid overload, unspecified Status: Acute Qualifiers: Hypervolemia type: unspecified Qualified Code(s): E87.70 - Fluid overload, unspecified (3) Hypertension Code(s): I10 - Essential (primary) hypertension Status: Acute <Des Toro - Last Filed: 09/20/18 16:15>
--- NOTE | 2018-09-16 11:26 | P.PNPL ---
Subjective Interval history: 67 YOWF with CHF,COPD, ch pl eff, DM Admitted with SOB Had increased sob last night Breathing better has cough with small amount of sputum No Fever Undergoing HD Physical Exam Vital signs: Vital Signs 09/15/18 12:00 09/15/18 13:00 09/15/18 14:00 Temperature Pulse Rate 80 80 64 Respiratory Rate Blood Pressure Pulse Oximetry 09/15/18 15:00 09/15/18 15:16 09/15/18 15:20 Temperature 97.3 F L Pulse Rate 65 67 Respiratory Rate 18 Blood Pressure 156/69 H Pulse Oximetry 94 L 96 09/15/18 16:00 09/15/18 16:19 09/15/18 17:00 Temperature Pulse Rate 64 80 Respiratory Rate 18 Blood Pressure Pulse Oximetry 09/15/18 17:29 09/15/18 18:00 09/15/18 19:00 Temperature 98.0 F Pulse Rate 66 65 Respiratory Rate 16 Blood Pressure 136/60 Pulse Oximetry 96 94 L 09/15/18 20:00 09/15/18 20:25 09/15/18 21:00 Temperature Pulse Rate 68 67 68 Respiratory Rate 20 Blood Pressure Pulse Oximetry 09/15/18 22:00 09/15/18 23:00 09/15/18 23:58 Temperature 98.2 F Pulse Rate 70 70 74 Respiratory Rate 16 18 Blood Pressure 152/67 H Pulse Oximetry 94 L 09/16/18 00:00 09/16/18 01:00 09/16/18 02:00 Temperature Pulse Rate 70 76 78 Respiratory Rate Blood Pressure Pulse Oximetry 09/16/18 03:00 09/16/18 03:28 09/16/18 04:00 Temperature 98.2 F Pulse Rate 74 72 72 Respiratory Rate 16 18 Blood Pressure 165/71 H Pulse Oximetry 91 L 09/16/18 05:00 09/16/18 06:00 09/16/18 07:00 Temperature 97.7 F Pulse Rate 85 85 64 Respiratory Rate Blood Pressure 165/65 H Pulse Oximetry 94 L 09/16/18 08:00 09/16/18 09:00 09/16/18 10:00 Temperature Pulse Rate 64 77 75 Respiratory Rate Blood Pressure Pulse Oximetry 94 L Intake & Output 09/15/18 09/16/18 09/16/18 18:59 06:59 18:59 Intake Total 1200 / 1200 720 / 720 Output Total 0 / 0 300 / 300 Balance 1200 / 1200 420 / 420 Weight 65 kg Intake: Oral 1200 / 1200 720 / 720 Output: Urine 0 / 0 300 / 300 Other: Date of Last Bowel Movement 09/13/18 09/13/18 GENERAL: Elderly WF,NAD SKIN: Warm and dry. HEAD: Normocephalic. EYES: No scleral icterus. No injection or drainage. NECK: Supple, trachea midline. No JVD or lymphadenopathy. CARDIOVASCULAR: Regular rate and rhythm without murmurs, gallops, or rubs. RESPIRATORY: Breath sounds equal bilaterally. No accessory muscle use. GASTROINTESTINAL: Abdomen soft, non-tender, nondistended. MUSCULOSKELETAL: No cyanosis, or edema. BACK: Nontender without obvious deformity. No CVA tenderness. Assessment and Plan - Plan IMPRESSION: 1. Respiratory failure. 2. Hypoxia. 3. Morbid obesity. 4. Likely sleep apnea. 5. Osteomyelitis. 6. Pneumonia. 7. Pulmonary edema. 8. Renal insufficiency. PLAN: Supplement [address] effusion, stable Diurease with Bumex Hemodialysis per renal. Rpt CXr after HD Add Zithro 500 mg po daily
[2018-09-16] MEDS: Azithromycin 250 MG Tablet PO SCH (14:24)
--- NOTE | 2018-09-16 14:28 | P.PNIM ---
Subjective Interval history: Patient reports she had more pain on the right thumb earlier during dialysis. Otherwise she reports her breathing is improved. No chest pain. Physical Exam Vital signs: Vital Signs 09/15/18 15:00 09/15/18 15:16 09/15/18 15:20 Temperature 97.3 F L Pulse Rate 65 67 Respiratory Rate 18 Blood Pressure 156/69 H Pulse Oximetry 94 L 96 09/15/18 16:00 09/15/18 16:19 09/15/18 17:00 Temperature Pulse Rate 64 80 Respiratory Rate 18 Blood Pressure Pulse Oximetry 09/15/18 17:29 09/15/18 18:00 09/15/18 19:00 Temperature 98.0 F Pulse Rate 66 65 Respiratory Rate 16 Blood Pressure 136/60 Pulse Oximetry 96 94 L 09/15/18 20:00 09/15/18 20:25 09/15/18 21:00 Temperature Pulse Rate 68 67 68 Respiratory Rate 20 Blood Pressure Pulse Oximetry 09/15/18 22:00 09/15/18 23:00 09/15/18 23:58 Temperature 98.2 F Pulse Rate 70 70 74 Respiratory Rate 16 18 Blood Pressure 152/67 H Pulse Oximetry 94 L 09/16/18 00:00 09/16/18 01:00 09/16/18 02:00 Temperature Pulse Rate 70 76 78 Respiratory Rate Blood Pressure Pulse Oximetry 09/16/18 03:00 09/16/18 03:28 09/16/18 04:00 Temperature 98.2 F Pulse Rate 74 72 72 Respiratory Rate 16 18 Blood Pressure 165/71 H Pulse Oximetry 91 L 09/16/18 05:00 09/16/18 06:00 09/16/18 07:00 Temperature 97.7 F Pulse Rate 85 85 64 Respiratory Rate Blood Pressure 165/65 H Pulse Oximetry 94 L 09/16/18 08:00 09/16/18 09:00 09/16/18 10:00 Temperature Pulse Rate 64 77 75 Respiratory Rate Blood Pressure Pulse Oximetry 94 L Intake & Output 09/15/18 09/16/18 09/16/18 18:59 06:59 18:59 Intake Total 1200 / 1200 720 / 720 Output Total 0 / 0 300 / 300 3000 / 3000 Balance 1200 / 1200 420 / 420 -3000 / -3000 Weight 65 kg Intake: Oral 1200 / 1200 720 / 720 Output: Urine 0 / 0 300 / 300 Hemodialysis Amount 3000 / 3000 Other: Date of Last Bowel Movement 09/13/18 09/13/18 Narrative: GENERAL: No acute distress SKIN: Warm and dry. NECK: Supple, trachea midline. Mild JVD distention. CARDIOVASCULAR: Regular rate and rhythm without murmurs, gallops, or rubs. Right AVG. RESPIRATORY: Air movement is fair. Diminished breath sounds at the bases bilaterally. GASTROINTESTINAL: Abdomen soft, non-tender, nondistended. MUSCULOSKELETAL: Right distal thumb with small dry wound, involved nail bed. Results - Labs CBC & Chem 7: 09/16/18 03:57 09/16/18 03:57 Laboratory Results - last 24 hr 09/15/18 09/15/18 09/15/18 16:45 19:53 23:27 WBC RBC Hgb Hct MCV MCH MCHC RDW Plt Count MPV Sodium Potassium Chloride Carbon Dioxide Anion Gap BUN Creatinine Estimated GFR POC Glucose 219 H 216 H 271 H Random Glucose Calcium 09/16/18 09/16/18 09/16/18 03:09 03:57 03:57 WBC 8.2 RBC 3.57 L Hgb 10.8 L Hct 34.0 L MCV 95.3 MCH 30.4 MCHC 31.9 L RDW 16.7 Plt Count 231 MPV 8.6 Sodium 133 L Potassium 4.4 Chloride 95 L Carbon Dioxide 27.7 Anion Gap 10 BUN 33 H Creatinine 2.95 H Estimated GFR 16 L POC Glucose 423 H Random Glucose 435 H D Calcium 8.0 L 09/16/18 09/16/18 08:14 11:29 WBC RBC Hgb Hct MCV MCH MCHC RDW Plt Count MPV Sodium Potassium Chloride Carbon Dioxide Anion Gap BUN Creatinine Estimated GFR POC Glucose 237 H 142 H Random Glucose Calcium Microbiology 09/15/18 10:55 Blood - Peripheral Aerobic Blood Culture - Preliminary No growth in 1 day 09/15/18 10:55 Blood - Peripheral Anaerobic Blood Culture - Preliminary No growth in 1 day 09/15/18 10:44 Blood - Peripheral Aerobic Blood Culture - Preliminary No growth in 1 day 09/15/18 10:44 Blood - Peripheral Anaerobic Blood Culture - Preliminary No growth in 1 day 09/15/18 10:58 Blood - Peripheral Aerobic Blood Culture - Preliminary No growth in 1 day 09/15/18 10:58 Blood - Peripheral Anaerobic Blood Culture - Preliminary No growth in 1 day - Imaging Impressions Extremity Arterial Study 09/15/18 00:00 CONCLUSION: 1. Diminished finger brachial indices at each digit most characteristic of steno-occlusive disease in the right upper extremity. Assessment and Plan - Assessment (1) CHF (congestive heart failure) Code(s): I50.9 - Heart failure, unspecified Status: Acute (2) Pleural effusion Code(s): J90 - Pleural effusion, not elsewhere classified Status: Acute (3) Hypoxia Code(s): R09.02 - Hypoxemia Status: Acute (4) ESRD on dialysis Code(s): N18.6 - End stage renal disease; Z99.2 - Dependence on renal dialysis Status: Acute (5) DM (diabetes mellitus) Code(s): E11.9 - Type 2 diabetes mellitus without complications Status: Acute - Plan 67-year-old female on hemodialysis admitted with acute diastolic CHF. Patient is also a brittle diabetic who presented with blood sugar of 700. She had one episode of acute hypoglycemia. [place] [facility] [place] now [place] to [place]. CHF: Acute on Chronic. Diastolic. Echo 08/09/18 w/ EF 50-55%, BNP 2644, CXR w / chronic effusions, images reviewed. Continue home Bumex, monitor I/O, appreciate nephrology input. Dialysis as scheduled. Seems to be stable from a respiratory standpoint. Acute symptomatic hypoglycemia/DM: Brittle diabetic, presented with BS in the 700's. Glucose in the 20s on 09/13/18. Received Levemir the night before. Treated with D50 and IVF. - Continue SSI with accuchecks. - Diabetic diet. - Blood glucose spiked in the 300's again. Resume Levemir at a lower dose 10 unit in AM. - Blood glucose better today. Continue to monitor. Right upper extremity steal syndrome/H/O AV graft: -Appreciate vascular surgery following. Duplex ultrasound ordered. Vascular surgery planning for revision. CAD, abnormalities on tele with concerns for Atrial flutter: No cardiovascular complaints. Unsure if she has a history of Afib. - Patient evaluated by Cardiology, Dr. Reddy. tele findings believed to be artifacts - Continue Coreg, Effient, Statin. Monitor on Tele Pleural Effusion: recent admit w/ large left effusion s/p thoracentesis/chest tube, CXR w/ pleural effusions, left greater than right, however stable. -Pulmonology following - Continue current treatment. If Effusion stable. Hypoxemia: O2 sat 86% on RA upon arrival, O2 dependent at night per patient, currently O2 sat 94% on 4L NC, monitor closely. DuoNeb prn. -Respiratory status seems to be stable today. ESRD on HD: M/W/F -Appreciate nephrology following. DVT Prophylaxis: SCD/Teds Discharge Planning: Patient overall improving. Vascular surgery evaluating steal syndrome on the right with duplex US.
--- NOTE | 2018-09-16 16:37 | P.PNCA ---
Subjective Interval history: Patient denies any chest pain, pressure, palpitations, dizziness, edema or shortness of breath. Patient states that she is feeling much better at this time. Medications and Allergies Allergies Allergy/AdvReac Type Severity Reaction Status Date / Time propoxyphene Allergy Intermediate RASH Verified 07/18/18 07:41 Home Medications Medication Instructions Recorded Confirmed Type albuterol sulfate [Ventolin HFA] 2 puff INHALATION Q6H PRN 06/03/18 09/11/18 History aspirin 81 mg PO DAILY 06/03/18 09/11/18 History budesonide-formoterol [Symbicort] 2 puff INHALATION BID 06/03/18 09/11/18 History atorvastatin 80 mg PO HS 08/30/18 09/11/18 History insulin detemir U-100 [Levemir 20 unit SUBCUT BID 08/30/18 09/11/18 History FlexTouch U-100 Insuln] mupirocin 1 applic TOPICAL BID 08/30/18 09/11/18 History prasugrel 10 mg PO DAILY 08/30/18 09/11/18 History vit B comp no.[id number] 1 tab PO DAILY 08/30/18 09/11/18 History [Nephro-[facility]ita Rx] Active Medications: Active Medications Acetaminophen (Tylenol) 650 mg PO Q4H PRN PRN Reason: Temp > 100.4 OR PAIN 1-5 Last Admin: 09/11/18 21:37 Dose: 650 mg Acetaminophen (Tylenol) 650 mg PO UNSCH PRN PRN Reason: SEE LABEL COMMENTS Al Hydroxide/Mg Hydroxide (Milk Of Leonidas Luke) 30 ml PO Q12H PRN PRN Reason: Mild Constipation Albuterol (Duoneb Neb (Prn)) 1 ampul NEB Q4HR NEB PRN PRN Reason: SOB/WHEEZING Last Admin: 09/16/18 03:27 Dose: 1 ampul Aspirin (Ecotrin) 81 mg PO DAILY [facility] Last Admin: 09/16/18 14:30 Dose: 81 mg Atorvastatin Calcium (Lipitor) 80 mg PO HS [facility] Last Admin: 09/15/18 21:45 Dose: 80 mg Azithromycin (Zithromax) 500 mg PO DAILY [facility] Last Admin: 09/16/18 14:24 Dose: 500 mg Bisacodyl (Dulcolax Supp) 10 mg RECTAL DAILY PRN PRN Reason: SEVERE CONSITIPATION Budesonide/Formoterol Fumarate (Symbicort 160/4.5 Mcg Inh) 2 puff INH BID [facility] Last Admin: 09/16/18 08:49 Dose: Not Given Bumetanide (Bumex) 1 mg PO BID [facility] Last Admin: 09/16/18 14:29 Dose: 1 mg Calcium Acetate (Phoslo) 667 mg PO TID [facility] Last Admin: 09/16/18 14:25 Dose: 667 mg Carvedilol (Coreg) 6.25 mg PO BID [facility] Last Admin: 09/16/18 14:29 Dose: 6.25 mg Clonidine HCl (Catapres) 0.1 mg PO UNSCH PRN PRN Reason: SEE LABEL COMMENTS Dextrose (D50w Vial) 50 ml IV.PUSH UNSCH PRN PRN Reason: PER HYPOGLYCEMIA PROTOCOL Last Admin: 09/13/18 09:00 Dose: 50 ml Diphenhydramine HCl (Benadryl) 25 mg PO UNSCH PRN PRN Reason: SEE LABEL COMMENTS Epoetin Low (Epogen Inj) 6,000 unit IV.PUSH UNSCH PRN PRN Reason: SEE LABEL COMMENTS Last Admin: 09/16/18 11:27 Dose: 6,000 unit Gabapentin (Neurontin) 100 mg PO [facility] Last Admin: 09/15/18 21:45 Dose: 100 mg Gelatin (Gelfoam 12 Mm/7 Mm Topical) 1 foam TOPICAL PRN PRN PRN Reason: help stop bleeding from site Last Admin: 09/16/18 11:27 Dose: 1 foam Gentamicin Sulfate (Gentamicin Inj) 20 mg OTHER WITH DIALYSIS PRN PRN Reason: Dwell Gentamycin Lock Glucagon (Glucagon Inj) 1 mg OTHER PRN PRN PRN Reason: for Hypoglycemia Protocol Heparin Sodium (Porcine) (Heparin Inj) 8,000 units OTHER WITH DIALYSIS PRN PRN Reason: for machine prime Heparin Sodium (Porcine) (Heparin Inj) 1,000 units OTHER WITH DIALYSIS PRN PRN Reason: Dwell Heparin to Fill Catheter Hydralazine HCl (Apresoline) 100 mg PO TID [facility] Last Admin: 09/16/18 14:27 Dose: 100 mg Albumin Human (Flexbumin 25% Inj) 100 mls @ 60 mls/hr IV.SIG WITH DIALYSIS PRN PRN Reason: hypotension / volume replace Sodium Chloride (Ns Inj) 1,000 mls @ 0 mls/hr OTHER .Q0M PRN PRN Reason: for prime and rinse back Sodium Chloride (Ns Inj) 1,000 mls @ 200 mls/hr OTHER .Q5H PRN PRN Reason: for dialyzer flush PRN Sodium Chloride (Ns Inj) 1,000 mls @ 0 mls/hr IV.CONT .Q0M PRN PRN Reason: hypotension / volume replace Insulin Aspart (Novolog Insulin Correctional Sugar Inj) 0 unit SQ ACHS [facility]; Protocol Last Admin: 09/16/18 12:33 Dose: Not Given Insulin Detemir (Levemir Inj) 10 unit SQ DAILY [facility] Last Admin: 09/16/18 08:45 Dose: Not Given Lactulose (Lactulose Liq) 30 ml PO DAILY PRN PRN Reason: SEVERE CONSITIPATION Mannitol (Mannitol Inj) 12.5 gm IV.PUSH UNSCH PRN PRN Reason: hypotension / volume replace Nifedipine (Procardia Xl) 60 mg PO DAILY [facility] Last Admin: 09/16/18 14:31 Dose: 60 mg Nitroglycerin (Nitrostat Sl) 0.4 mg SL Q5M PRN PRN Reason: CHEST PAIN Ondansetron HCl (Zofran Inj) 4 mg IV.PUSH Q6H PRN PRN Reason: NAUSEA OR VOMITING Last Admin: 09/13/18 14:28 Dose: 4 mg Ondansetron HCl (Zofran Inj) 4 mg IV.PUSH UNSCH PRN PRN Reason: NAUSEA OR VOMITING Oxycodone/Acetaminophen (Percocet 5/325 Mg) 1 tab PO Q4H PRN PRN Reason: PAIN SCALE 6 TO 10 Prasugrel (Effient) 10 mg PO DAILY [facility] Last Admin: 09/16/18 14:30 Dose: 10 mg Senna/Docusate Sodium (Jocelyn-Colace) 1 tab PO BID [facility] Last Admin: 09/16/18 08:49 Dose: Not Given Sennosides (Senokot) 17.2 mg PO Q12H PRN PRN Reason: Moderate Constipation Sodium Chloride (Ns Flush) 5 ml IV.FLUSH PRN PRN PRN Reason: flush each lumen during HD Sodium Chloride (Ns Flush) 2 ml IV.FLUSH BID [facility] Last Admin: 09/16/18 08:45 Dose: 2 ml Sodium Chloride (Ns Flush) 2 ml IV.FLUSH PRN PRN PRN Reason: FLUSH AFTER USING IV ACCESS Physical Exam Vital signs: Vital Signs 09/15/18 17:00 09/15/18 17:29 09/15/18 18:00 Temperature Pulse Rate 80 66 Respiratory Rate Blood Pressure Pulse Oximetry 96 09/15/18 19:00 09/15/18 20:00 09/15/18 20:25 Temperature 98.0 F Pulse Rate 65 68 67 Respiratory Rate 16 20 Blood Pressure 136/60 Pulse Oximetry 94 L 09/15/18 21:00 09/15/18 22:00 09/15/18 23:00 Temperature 98.2 F Pulse Rate 68 70 70 Respiratory Rate 16 Blood Pressure 152/67 H Pulse Oximetry 94 L 09/15/18 23:58 09/16/18 00:00 09/16/18 01:00 Temperature Pulse Rate 74 70 76 Respiratory Rate 18 Blood Pressure Pulse Oximetry 09/16/18 02:00 09/16/18 03:00 09/16/18 03:28 Temperature 98.2 F Pulse Rate 78 74 72 Respiratory Rate 16 18 Blood Pressure 165/71 H Pulse Oximetry 91 L 09/16/18 04:00 09/16/18 05:00 09/16/18 06:00 Temperature Pulse Rate 72 85 85 Respiratory Rate Blood Pressure Pulse Oximetry 09/16/18 07:00 09/16/18 08:00 09/16/18 09:00 Temperature 97.7 F Pulse Rate 64 64 77 Respiratory Rate Blood Pressure 165/65 H Pulse Oximetry 94 L 94 L 09/16/18 10:00 09/16/18 14:00 09/16/18 15:00 Temperature 98 F Pulse Rate 75 92 H 83 Respiratory Rate Blood Pressure 178/78 H Pulse Oximetry 92 L 09/16/18 15:58 Temperature Pulse Rate 82 Respiratory Rate Blood Pressure Pulse Oximetry Intake & Output 09/15/18 09/16/18 09/16/18 18:59 06:59 18:59 Intake Total 1200 / 1200 720 / 720 Output Total 0 / 0 300 / 300 3000 / 3000 Balance 1200 / 1200 420 / 420 -3000 / -3000 Weight 65 kg Intake: Oral 1200 / 1200 720 / 720 Output: Urine 0 / 0 300 / 300 Hemodialysis Amount 3000 / 3000 Other: Date of Last Bowel Movement 09/13/18 09/13/18 - Constitutional no acute distress - Routine HEENT Exam Head: Present: normocephalic Eye: Present: PERRL ENT: Present: mucous membranes moist - Routine Neck Exam Present: full ROM - Routine Respiratory Exam Present: CTA bilaterally - Routine Cardiovascular Exam Present: S1, S2. Absent: murmur, gallop, rubs - Routine Abdominal Exam Present: normoactive bowel sounds - Routine Extremities Exam Present: full ROM, pulses intact, normal capillary refill. Absent: cyanosis, clubbing, edema - Routine Skin Exam Present: intact - Routine Neurological Exam Present: oriented X3 - Detailed Neurological Exam: Coma Scale Eye Opening: Spontaneous Verbal Response: Oriented Motor Response: Obey commands [place] Coma Scale Total: 15 - Routine Psychiatric Exam Present: normal affect Results 09/16/18 03:57 09/16/18 03:57 CBC 09/15/18 09/16/18 Range/Units 03:54 03:57 WBC 5.0 8.2 (4.0-11.0) th/mm3 RBC 3.52 L 3.57 L (4.00-5.30) mil/mm3 Hgb 10.5 L D 10.8 L (11.6-15.3) gm/dL Hct 33.3 L 34.0 L (35.0-46.0) % Plt Count 212 D 231 (150-450) th/mm3 Comprehensive Metabolic Panel 09/15/18 09/16/18 Range/Units 03:54 03:57 Sodium 137 133 L (136-145) meq/L Potassium 3.9 4.4 (3.5-5.1) meq/L Chloride 99 95 L (98-107) meq/L Carbon Dioxide 30.9 27.7 (21.0-32.0) meq/L BUN 24 H 33 H (7-18) mg/dL Creatinine 2.19 H 2.95 H (0.50-1.00) mg/dL Calcium 8.2 L D 8.0 L (8.5-10.1) mg/dL Intake and Output 09/16/18 09/16/18 09/16/18 06:59 14:59 22:59 Intake Total 720 / 720 Output Total 300 / 300 3000 / 3000 Balance 420 / 420 -3000 / -3000 Intake: Oral 720 / 720 Output: Urine 300 / 300 Hemodialysis Amount 3000 / 3000 Other: Date of Last Bowel Movement 09/13/18 Weight 65 kg - Imaging and Cardiology Imaging: Impressions Extremity Arterial Study 09/15/18 00:00 CONCLUSION: 1. Diminished finger brachial indices at each digit most characteristic of steno-occlusive disease in the right upper extremity. Assessment and Plan - Assessment (1) DKA (diabetic ketoacidoses) Code(s): E13.10 - Other specified diabetes mellitus with ketoacidosis without coma Status: Acute (2) Acute UTI Code(s): N39.0 - Urinary tract infection, site not specified Status: Acute (3) ESRD (end stage renal disease) on dialysis Code(s): N18.6 - End stage renal disease; Z99.2 - Dependence on renal dialysis Status: Acute (4) Diabetes Code(s): E11.9 - Type 2 diabetes mellitus without complications Status: Acute (5) Hypertension Code(s): I10 - Essential (primary) hypertension Status: Acute (6) Pain and swelling of right upper extremity Code(s): M79.601 - Pain in right arm; M79.89 - Other specified soft tissue disorders Status: Acute (7) Fluid overload Code(s): E87.70 - Fluid overload, unspecified Status: Acute - Plan No episodes of atrial fibrillation, sinus rhythm on monitor. Continue with current cardiac treatment plan and adjust as needed. Patient had dialysis today and tolerated well with no episodes. We will continue to follow the patient during her hospitalization and see her back for follow-up in our office post discharge. Patient was seen and evaluated by Dr. Reddy who participated in care, management and decision-making. - Attending Attestation Patient seen and examined. I reviewed and agree with the evaluation and plan as presented. No new cardiac issues. Tolerated dialysis well. Continue current program. (1) DKA (diabetic ketoacidoses) Qualifiers: Diabetes mellitus type: type 2 Diabetes mellitus complication detail: without coma Qualified Code(s): E11.10 - Type 2 diabetes mellitus with ketoacidosis without coma (4) Diabetes Qualifiers: Diabetes mellitus terminal operations manager insulin use: with terminal operations manager use (7) Fluid overload Qualifiers: Hypervolemia type: unspecified Qualified Code(s): E87.70 - Fluid overload, unspecified
--- NOTE | 2018-09-16 17:24 | XR ---
EXAM DATE: 09/16/2018 11:26 AM EDT AGE/SEX: 67 years / Female INDICATIONS: pleural effusion. CLINICAL DATA: This is the patient's subsequent encounter. Patient reports that signs and symptoms h ave been present for 4 - 6 days and indicates a pain score of 0/10. MEDICAL/SURGICAL HISTORY: . av fistula, anemia, cad, chf, chronic back pain, copd, dm, esrd, he modialysis, hyperlipidemia, hyperkalemia, hypertension, hypoxia . . laminectomy, vag hysterectomy, c section, laser refr sx, tonsillectomy, appendectomy, heart artery stent COMPARISON: [facility] [place], CHEST 1V SINGLE AP, 09/13/2018. . FINDINGS: Chest single view the chest some infiltrate in the left lung base with a moderate size left pleural e ffusion. There is much better aeration of the right chest. There is no visible pneumothorax. Heart an d mediastinum are stable. CONCLUSION: Persistent consolidation and moderate-sized left pleural effusion. The right pleural effusion has res olved or has been removed without evidence of pneumothorax Electronically signed by: Bradley Doe MD 09/16/2018 5:23 PM EDT
[2018-09-16] MEDS: Gabapentin 100 MG Capsule PO SCH (21:10)
[2018-09-17 04:47] LABS: Hematocrit 35.9 % (35.0-46.0); Hemoglobin 11.3 gm/dL (11.6-15.3); Mean Corpuscular HGB Conc 31.6 % (32.0-36.0); Mean Corpuscular Hemoglobin 30.1 pg (27.0-34.0); Mean Platelet Volume 8.5 fL (7.0-11.0); Platelet Count 230 th/mm3 (150-450); Red Blood Count 3.77 mil/mm3 (4.00-5.30); White Blood Count 6.7 th/mm3 (4.0-11.0)
[2018-09-17 05:08] LABS: Calcium 8.2 mg/dL (8.5-10.1); Carbon Dioxide 29.8 meq/L (21.0-32.0); Potassium 4.2 meq/L (3.5-5.1)
[2018-09-17] MEDS: Insulin NovoLOG Aspart Correctional Sugar Inj SQ SCH ×4 (09:09→21:33)
[2018-09-17] MEDS: Calcium Acetate 667 MG Capsule PO SCH ×3 (09:11→17:15)
[2018-09-17] MEDS: Azithromycin 250 MG Tablet PO SCH (09:12)
[2018-09-17] MEDS: Carvedilol 6.25 MG Tablet PO SCH ×2 (09:12→21:26)
[2018-09-17] MEDS: Senna/Docusate Sodium 8.6/50 MG Tablet PO SCH ×2 (09:12→21:26)
[2018-09-17] MEDS: Insulin Detemir Inj 1,000 UNIT/10 ML Vial SQ SCH ×2 (09:13→21:34)
[2018-09-17] MEDS: Sodium Chloride 0.9% 2 ML Flush BID IV.FLUSH SCH ×2 (09:13→21:34)
[2018-09-17] MEDS: Budesonide-Formoterol 160/4.5 MCG 6 GM Inhaler INH SCH ×2 (09:13→21:27)
--- NOTE | 2018-09-17 11:09 | P.PNVS ---
Subjective Subjective/Hospital Course: Doing well, reports that her right thumb pain is improved with pain medication but she still experiencing pain during hemodialysis. Objective Vital Signs / I&O: Vital Signs 09/16/18 14:00 09/16/18 15:00 09/16/18 15:58 Temperature 98 F Pulse Rate 92 H 83 82 Respiratory Rate Blood Pressure 178/78 H Pulse Oximetry 92 L 09/16/18 17:00 09/16/18 17:01 09/16/18 17:40 Temperature Pulse Rate 78 Respiratory Rate 16 Blood Pressure Pulse Oximetry 95 09/16/18 18:00 09/16/18 19:00 09/16/18 20:00 Temperature 98.3 F Pulse Rate 74 75 74 Respiratory Rate Blood Pressure 147/65 H Pulse Oximetry 98 98 09/16/18 21:00 09/16/18 22:00 09/16/18 23:00 Temperature 98.2 F Pulse Rate 82 74 73 Respiratory Rate Blood Pressure 154/70 H Pulse Oximetry 93 L 09/17/18 00:00 09/17/18 00:11 09/17/18 02:00 Temperature Pulse Rate 73 84 84 Respiratory Rate 16 Blood Pressure Pulse Oximetry 09/17/18 03:00 09/17/18 04:00 09/17/18 05:00 Temperature 98.5 F Pulse Rate 85 86 84 Respiratory Rate 16 Blood Pressure 154/68 H Pulse Oximetry 92 L 09/17/18 06:00 Temperature Pulse Rate 84 Respiratory Rate Blood Pressure Pulse Oximetry Intake & Output 09/16/18 09/17/18 09/17/18 18:59 06:59 18:59 Intake Total 800 / 800 480 / 480 Output Total 3300 / 3300 Balance -2500 / -2500 480 / 480 Weight 65.5 kg Intake: Oral 800 / 800 480 / 480 Output: Urine 300 / 300 Hemodialysis Amount 3000 / 3000 Other: # Voids 1 Physical Exam: Right thumb with dry scab. She has biphasic radial, ulnar signal. The signal augments with graft occlusion. Right upper extremity AV graft with good thrill. Laboratory Results - last 24 hr 09/16/18 09/16/18 09/16/18 11:29 17:22 19:52 WBC RBC Hgb Hct MCV MCH MCHC RDW Plt Count MPV Sodium Potassium Chloride Carbon Dioxide Anion Gap BUN Creatinine Estimated GFR POC Glucose 142 H 315 H 333 H Random Glucose Calcium 09/17/18 09/17/18 09/17/18 04:15 04:15 08:08 WBC 6.7 RBC 3.77 L Hgb 11.3 L Hct 35.9 MCV 95.0 MCH 30.1 MCHC 31.6 L RDW 17.0 Plt Count 230 MPV 8.5 Sodium 135 L Potassium 4.2 Chloride 97 L Carbon Dioxide 29.8 Anion Gap 8 BUN 28 H Creatinine 2.58 H Estimated GFR 19 L POC Glucose 464 H* Random Glucose 367 H Calcium 8.2 L 09/17/18 08:11 WBC RBC Hgb Hct MCV MCH MCHC RDW Plt Count MPV Sodium Potassium Chloride Carbon Dioxide Anion Gap BUN Creatinine Estimated GFR POC Glucose 417 H Random Glucose Calcium Microbiology 09/15/18 10:55 Aerobic Blood Culture - Preliminary Blood - Peripheral No growth in 2 days Anaerobic Blood Culture - Preliminary No growth in 2 days 09/15/18 10:44 Aerobic Blood Culture - Preliminary Blood - Peripheral No growth in 2 days Anaerobic Blood Culture - Preliminary No growth in 2 days 09/15/18 10:58 Aerobic Blood Culture - Preliminary Blood - Peripheral No growth in 2 days Anaerobic Blood Culture - Preliminary No growth in 2 days Impressions Extremity Arterial Study 09/15/18 00:00 CONCLUSION: 1. Diminished finger brachial indices at each digit most characteristic of steno-occlusive disease in the right upper extremity. Chest X-Ray 09/16/18 11:26 CONCLUSION: Persistent consolidation and moderate-sized left pleural effusion. The right pleural effusion has resolved or has been removed without evidence of pneumothorax Assessment and Plan - Plan Right upper extremity steal syndrome Plan angiogram on Wednesday to rule out inflow disease.
--- NOTE | 2018-09-17 12:18 | P.PNNP ---
Subjective Interval history: No acute complaints, ongoing right hand pains Physical Exam Vital signs: Vital Signs 09/16/18 14:00 09/16/18 15:00 09/16/18 15:58 Temperature 98 F Pulse Rate 92 H 83 82 Respiratory Rate Blood Pressure 178/78 H Pulse Oximetry 92 L 09/16/18 17:00 09/16/18 17:01 09/16/18 17:40 Temperature Pulse Rate 78 Respiratory Rate 16 Blood Pressure Pulse Oximetry 95 09/16/18 18:00 09/16/18 19:00 09/16/18 20:00 Temperature 98.3 F Pulse Rate 74 75 74 Respiratory Rate Blood Pressure 147/65 H Pulse Oximetry 98 98 09/16/18 21:00 09/16/18 22:00 09/16/18 23:00 Temperature 98.2 F Pulse Rate 82 74 73 Respiratory Rate Blood Pressure 154/70 H Pulse Oximetry 93 L 09/17/18 00:00 09/17/18 00:11 09/17/18 02:00 Temperature Pulse Rate 73 84 84 Respiratory Rate 16 Blood Pressure Pulse Oximetry 09/17/18 03:00 09/17/18 04:00 09/17/18 05:00 Temperature 98.5 F Pulse Rate 85 86 84 Respiratory Rate 16 Blood Pressure 154/68 H Pulse Oximetry 92 L 09/17/18 06:00 09/17/18 11:15 09/17/18 11:33 Temperature Pulse Rate 84 77 Respiratory Rate 18 Blood Pressure Pulse Oximetry 92 L Intake & Output 09/16/18 09/17/18 09/17/18 18:59 06:59 18:59 Intake Total 800 / 800 480 / 480 Output Total 3300 / 3300 Balance -2500 / -2500 480 / 480 Weight 65.5 kg Intake: Oral 800 / 800 480 / 480 Output: Urine 300 / 300 Hemodialysis Amount 3000 / 3000 Other: # Voids 1 - Constitutional no acute distress - Routine HEENT Exam Head: Present: normocephalic Eye: Present: EOMI ENT: Present: mucous membranes moist - Routine Neck Exam Present: supple - Routine Respiratory Exam Present: CTA bilaterally - Routine Cardiovascular Exam Present: RRR - Routine Abdominal Exam Present: soft - Routine Extremities Exam Present: vascular access - Routine Skin Exam Present: dry - Routine Neurological Exam Present: alert, oriented X3 - Detailed Neurological Exam: Coma Scale Eye Opening: Spontaneous - Routine Psychiatric Exam Present: normal affect Assessment and Plan - Assessment (1) ESRD (end stage renal disease) on dialysis Code(s): N18.6 - End stage renal disease; Z99.2 - Dependence on renal dialysis Status: Acute Plan: HD done Wednesday, plan next HD Wednesday Volume status, electrolytes stable Apparent steal syndrome at right thumb - follow with vascular surgery (2) Fluid overload Code(s): E87.70 - Fluid overload, unspecified Status: Acute Qualifiers: Hypervolemia type: unspecified Qualified Code(s): E87.70 - Fluid overload, unspecified Plan: Stable, continue UF with HD (3) Hypertension Code(s): I10 - Essential (primary) hypertension Status: Acute Plan: Better controlled On Coreg, hydralazine, and nifedipine. Will monitor
[2018-09-17] MEDS: Bisacodyl 10 MG Supp RECTAL PRN (14:23)
--- NOTE | 2018-09-17 14:53 | P.PN ---
Subjective Interval history: ALERT NAD Physical Exam Vital signs: Vital Signs 09/16/18 15:00 09/16/18 15:58 09/16/18 17:00 Temperature 98 F Pulse Rate 83 82 78 Respiratory Rate Blood Pressure 178/78 H Pulse Oximetry 92 L 09/16/18 17:01 09/16/18 17:40 09/16/18 18:00 Temperature Pulse Rate 74 Respiratory Rate 16 Blood Pressure Pulse Oximetry 95 09/16/18 19:00 09/16/18 20:00 09/16/18 21:00 Temperature 98.3 F Pulse Rate 75 74 82 Respiratory Rate Blood Pressure 147/65 H Pulse Oximetry 98 98 09/16/18 22:00 09/16/18 23:00 09/17/18 00:00 Temperature 98.2 F Pulse Rate 74 73 73 Respiratory Rate Blood Pressure 154/70 H Pulse Oximetry 93 L 09/17/18 00:11 09/17/18 02:00 09/17/18 03:00 Temperature 98.5 F Pulse Rate 84 84 85 Respiratory Rate 16 16 Blood Pressure 154/68 H Pulse Oximetry 92 L 09/17/18 04:00 09/17/18 05:00 09/17/18 06:00 Temperature Pulse Rate 86 84 84 Respiratory Rate Blood Pressure Pulse Oximetry 09/17/18 07:00 09/17/18 11:00 09/17/18 11:15 Temperature 97.8 F 97.9 F Pulse Rate 84 82 Respiratory Rate 18 20 Blood Pressure 159/70 H 154/68 H Pulse Oximetry 93 L 94 L 92 L 09/17/18 11:33 Temperature Pulse Rate 77 Respiratory Rate 18 Blood Pressure Pulse Oximetry Intake & Output 09/16/18 09/17/18 09/17/18 18:59 06:59 18:59 Intake Total 800 / 800 480 / 480 Output Total 3300 / 3300 Balance -2500 / -2500 480 / 480 Weight 65.5 kg Intake: Oral 800 / 800 480 / 480 Output: Urine 300 / 300 Hemodialysis Amount 3000 / 3000 Other: # Voids 1 Narrative: GENERAL: No acute distress SKIN: Warm and dry. NECK: Supple, trachea midline. Mild JVD distention. CARDIOVASCULAR: Regular rate and rhythm without murmurs, gallops, or rubs. Right AVG. RESPIRATORY: Air movement is fair. Diminished breath sounds at the bases bilaterally. GASTROINTESTINAL: Abdomen soft, non-tender, nondistended. MUSCULOSKELETAL: Right distal thumb with small dry wound, involved nail bed. Results - Labs CBC & Chem 7: 09/17/18 04:15 09/17/18 04:15 Laboratory Results - last 24 hr 09/16/18 09/16/18 09/17/18 17:22 19:52 04:15 WBC 6.7 RBC 3.77 L Hgb 11.3 L Hct 35.9 MCV 95.0 MCH 30.1 MCHC 31.6 L RDW 17.0 Plt Count 230 MPV 8.5 Sodium Potassium Chloride Carbon Dioxide Anion Gap BUN Creatinine Estimated GFR POC Glucose 315 H 333 H Random Glucose Calcium 09/17/18 09/17/18 09/17/18 04:15 08:08 08:11 WBC RBC Hgb Hct MCV MCH MCHC RDW Plt Count MPV Sodium 135 L Potassium 4.2 Chloride 97 L Carbon Dioxide 29.8 Anion Gap 8 BUN 28 H Creatinine 2.58 H Estimated GFR 19 L POC Glucose 464 H* 417 H Random Glucose 367 H Calcium 8.2 L 09/17/18 12:04 WBC RBC Hgb Hct MCV MCH MCHC RDW Plt Count MPV Sodium Potassium Chloride Carbon Dioxide Anion Gap BUN Creatinine Estimated GFR POC Glucose 397 H Random Glucose Calcium Microbiology 09/15/18 10:55 Blood - Peripheral Aerobic Blood Culture - Preliminary No growth in 2 days 09/15/18 10:55 Blood - Peripheral Anaerobic Blood Culture - Preliminary No growth in 2 days 09/15/18 10:44 Blood - Peripheral Aerobic Blood Culture - Preliminary No growth in 2 days 09/15/18 10:44 Blood - Peripheral Anaerobic Blood Culture - Preliminary No growth in 2 days 09/15/18 10:58 Blood - Peripheral Aerobic Blood Culture - Preliminary No growth in 2 days 09/15/18 10:58 Blood - Peripheral Anaerobic Blood Culture - Preliminary No growth in 2 days - Imaging Impressions Chest X-Ray 09/16/18 11:26 CONCLUSION: Persistent consolidation and moderate-sized left pleural effusion. The right pleural effusion has resolved or has been removed without evidence of pneumothorax Assessment and Plan - Plan RESPIRATORY FAILURE PNA PLEURAL EFFUSION PLAN O2 NEEDED PULM TOILET ANTIBX INCREASE ACTIVITY
--- NOTE | 2018-09-17 16:11 | P.PNCA ---
Subjective Interval history: Patient denies any CP, pressure, palpitations, dizziness or edema. Patient does complain of mild SOB. Medications and Allergies Allergies Allergy/AdvReac Type Severity Reaction Status Date / Time propoxyphene Allergy Intermediate RASH Verified 07/18/18 07:41 Home Medications Medication Instructions Recorded Confirmed Type albuterol sulfate [Ventolin HFA] 2 puff INHALATION Q6H PRN 06/03/18 09/11/18 History aspirin 81 mg PO DAILY 06/03/18 09/11/18 History budesonide-formoterol [Symbicort] 2 puff INHALATION BID 06/03/18 09/11/18 History atorvastatin 80 mg PO HS 08/30/18 09/11/18 History insulin detemir U-100 [Levemir 20 unit SUBCUT BID 08/30/18 09/11/18 History FlexTouch U-100 Insuln] mupirocin 1 applic TOPICAL BID 08/30/18 09/11/18 History prasugrel 10 mg PO DAILY 08/30/18 09/11/18 History vit B comp no.[id number]-biotin 1 tab PO DAILY 08/30/18 09/11/18 History [Nephro-Bonita Rx] Active Medications: Active Medications Acetaminophen (Tylenol) 650 mg PO Q4H PRN PRN Reason: Temp > 100.4 OR PAIN 1-5 Last Admin: 09/11/18 21:37 Dose: 650 mg Acetaminophen (Tylenol) 650 mg PO UNSCH PRN PRN Reason: SEE LABEL COMMENTS Al Hydroxide/Mg Hydroxide (Milk Of Leonidas Luke) 30 ml PO Q12H PRN PRN Reason: Mild Constipation Albuterol (Duoneb Neb (Prn)) 1 ampul NEB Q4HR NEB PRN PRN Reason: SOB/WHEEZING Last Admin: 09/17/18 11:32 Dose: 1 ampul Aspirin (Ecotrin) 81 mg PO DAILY [facility] Last Admin: 09/17/18 09:12 Dose: 81 mg Atorvastatin Calcium (Lipitor) 80 mg PO HS [facility] Last Admin: 09/16/18 21:10 Dose: 80 mg Azithromycin (Zithromax) 500 mg PO DAILY [facility] Last Admin: 09/17/18 09:12 Dose: 500 mg Bisacodyl (Dulcolax Supp) 10 mg RECTAL DAILY PRN PRN Reason: SEVERE CONSITIPATION Last Admin: 09/17/18 14:23 Dose: 10 mg Budesonide/Formoterol Fumarate (Symbicort 160/4.5 Mcg Inh) 2 puff INH BID [facility] Last Admin: 09/17/18 09:13 Dose: 2 puff Bumetanide (Bumex) 1 mg PO BID [facility] Last Admin: 09/17/18 09:13 Dose: 1 mg Calcium Acetate (Phoslo) 667 mg PO TID [facility] Last Admin: 09/17/18 12:08 Dose: 667 mg Carvedilol (Coreg) 6.25 mg PO BID [facility] Last Admin: 09/17/18 09:12 Dose: 6.25 mg Clonidine HCl (Catapres) 0.1 mg PO UNSCH PRN PRN Reason: SEE LABEL COMMENTS Dextrose (D50w Vial) 50 ml IV.PUSH UNSCH PRN PRN Reason: PER HYPOGLYCEMIA PROTOCOL Last Admin: 09/13/18 09:00 Dose: 50 ml Diphenhydramine HCl (Benadryl) 25 mg PO UNSCH PRN PRN Reason: SEE LABEL COMMENTS Epoetin Low (Epogen Inj) 6,000 unit IV.PUSH UNSCH PRN PRN Reason: SEE LABEL COMMENTS Last Admin: 09/16/18 11:27 Dose: 6,000 unit Gabapentin (Neurontin) 100 mg PO [facility] Last Admin: 09/16/18 21:10 Dose: 100 mg Gelatin (Gelfoam 12 Mm/7 Mm Topical) 1 foam TOPICAL PRN PRN PRN Reason: help stop bleeding from site Last Admin: 09/16/18 11:27 Dose: 1 foam Gentamicin Sulfate (Gentamicin Inj) 20 mg OTHER WITH DIALYSIS PRN PRN Reason: Dwell Gentamycin Lock Glucagon (Glucagon Inj) 1 mg OTHER PRN PRN PRN Reason: for Hypoglycemia Protocol Heparin Sodium (Porcine) (Heparin Inj) 8,000 units OTHER WITH DIALYSIS PRN PRN Reason: for machine prime Heparin Sodium (Porcine) (Heparin Inj) 1,000 units OTHER WITH DIALYSIS PRN PRN Reason: Dwell Heparin to Fill Catheter Hydralazine HCl (Apresoline) 100 mg PO TID [facility] Last Admin: 09/17/18 12:08 Dose: 100 mg Albumin Human (Flexbumin 25% Inj) 100 mls @ 60 mls/hr IV.SIG WITH DIALYSIS PRN PRN Reason: hypotension / volume replace Sodium Chloride (Ns Inj) 1,000 mls @ 0 mls/hr OTHER .Q0M PRN PRN Reason: for prime and rinse back Sodium Chloride (Ns Inj) 1,000 mls @ 200 mls/hr OTHER .Q5H PRN PRN Reason: for dialyzer flush PRN Sodium Chloride (Ns Inj) 1,000 mls @ 0 mls/hr IV.CONT .Q0M PRN PRN Reason: hypotension / volume replace Insulin Aspart (Novolog Insulin Correctional Sugar Inj) 0 unit SQ ACHS [facility]; Protocol Last Admin: 09/17/18 12:09 Dose: 9 unit Insulin Detemir (Levemir Inj) 10 unit SQ DAILY [facility] Last Admin: 09/17/18 09:13 Dose: 10 unit Lactulose (Lactulose Liq) 30 ml PO DAILY PRN PRN Reason: SEVERE CONSITIPATION Mannitol (Mannitol Inj) 12.5 gm IV.PUSH UNSCH PRN PRN Reason: hypotension / volume replace Nifedipine (Procardia Xl) 60 mg PO DAILY [facility] Last Admin: 09/17/18 09:22 Dose: 60 mg Nitroglycerin (Nitrostat Sl) 0.4 mg SL Q5M PRN PRN Reason: CHEST PAIN Ondansetron HCl (Zofran Inj) 4 mg IV.PUSH Q6H PRN PRN Reason: NAUSEA OR VOMITING Last Admin: 09/13/18 14:28 Dose: 4 mg Ondansetron HCl (Zofran Inj) 4 mg IV.PUSH UNSCH PRN PRN Reason: NAUSEA OR VOMITING Oxycodone/Acetaminophen (Percocet 5/325 Mg) 1 tab PO Q4H PRN PRN Reason: PAIN SCALE 6 TO 10 Last Admin: 09/17/18 12:09 Dose: 1 tab Prasugrel (Effient) 10 mg PO DAILY [facility] Last Admin: 09/17/18 09:22 Dose: 10 mg Senna/Docusate Sodium (Jocelyn-Colace) 1 tab PO BID [facility] Last Admin: 09/17/18 09:12 Dose: 1 tab Sennosides (Senokot) 17.2 mg PO Q12H PRN PRN Reason: Moderate Constipation Sodium Chloride (Ns Flush) 5 ml IV.FLUSH PRN PRN PRN Reason: flush each lumen during HD Sodium Chloride (Ns Flush) 2 ml IV.FLUSH BID [facility] Last Admin: 09/17/18 09:13 Dose: 2 ml Sodium Chloride (Ns Flush) 2 ml IV.FLUSH PRN PRN PRN Reason: FLUSH AFTER USING IV ACCESS Physical Exam Vital signs: Vital Signs 09/16/18 17:00 09/16/18 17:01 09/16/18 17:40 Temperature Pulse Rate 78 Respiratory Rate 16 Blood Pressure Pulse Oximetry 95 09/16/18 18:00 09/16/18 19:00 09/16/18 20:00 Temperature 98.3 F Pulse Rate 74 75 74 Respiratory Rate Blood Pressure 147/65 H Pulse Oximetry 98 98 09/16/18 21:00 09/16/18 22:00 09/16/18 23:00 Temperature 98.2 F Pulse Rate 82 74 73 Respiratory Rate Blood Pressure 154/70 H Pulse Oximetry 93 L 09/17/18 00:00 09/17/18 00:11 09/17/18 02:00 Temperature Pulse Rate 73 84 84 Respiratory Rate 16 Blood Pressure Pulse Oximetry 09/17/18 03:00 09/17/18 04:00 09/17/18 05:00 Temperature 98.5 F Pulse Rate 85 86 84 Respiratory Rate 16 Blood Pressure 154/68 H Pulse Oximetry 92 L 09/17/18 06:00 09/17/18 07:00 09/17/18 11:00 Temperature 97.8 F 97.9 F Pulse Rate 84 84 82 Respiratory Rate 18 20 Blood Pressure 159/70 H 154/68 H Pulse Oximetry 93 L 94 L 09/17/18 11:15 09/17/18 11:33 Temperature Pulse Rate 77 Respiratory Rate 18 Blood Pressure Pulse Oximetry 92 L Intake & Output 09/16/18 09/17/18 09/17/18 18:59 06:59 18:59 Intake Total 800 / 800 480 / 480 Output Total 3300 / 3300 Balance -2500 / -2500 480 / 480 Weight 65.5 kg Intake: Oral 800 / 800 480 / 480 Output: Urine 300 / 300 Hemodialysis Amount 3000 / 3000 Other: # Voids 1 - Constitutional no acute distress - Routine HEENT Exam Head: Present: normocephalic Eye: Present: PERRL ENT: Present: mucous membranes moist - Routine Neck Exam Present: full ROM - Routine Respiratory Exam Present: decreased breath sounds, rhonchi Comments: Rhonchi bilateral throughout - Routine Cardiovascular Exam Present: S1, S2. Absent: murmur, gallop, rubs - Routine Abdominal Exam Present: normoactive bowel sounds - Routine Extremities Exam Present: full ROM, pulses intact, normal capillary refill. Absent: cyanosis, clubbing, edema - Routine Skin Exam Present: intact - Routine Neurological Exam Present: oriented X3 - Detailed Neurological Exam: Coma Scale Eye Opening: Spontaneous Verbal Response: Oriented Motor Response: Obey commands Zeny Coma Scale Total: 15 - Routine Psychiatric Exam Present: normal affect Results 09/17/18 04:15 09/17/18 04:15 CBC 09/16/18 09/17/18 Range/Units 03:57 04:15 WBC 8.2 6.7 (4.0-11.0) th/mm3 RBC 3.57 L 3.77 L (4.00-5.30) mil/mm3 Hgb 10.8 L 11.3 L (11.6-15.3) gm/dL Hct 34.0 L 35.9 (35.0-46.0) % Plt Count 231 230 (150-450) th/mm3 Comprehensive Metabolic Panel 09/16/18 09/17/18 Range/Units 03:57 04:15 Sodium 133 L 135 L (136-145) meq/L Potassium 4.4 4.2 (3.5-5.1) meq/L Chloride 95 L 97 L (98-107) meq/L Carbon Dioxide 27.7 29.8 (21.0-32.0) meq/L BUN 33 H 28 H (7-18) mg/dL Creatinine 2.95 H 2.58 H (0.50-1.00) mg/dL Calcium 8.0 L 8.2 L (8.5-10.1) mg/dL Intake and Output 09/17/18 09/17/18 09/17/18 06:59 14:59 22:59 Intake Total 480 / 480 Balance 480 / 480 Intake: Oral 480 / 480 Other: # Voids 1 Weight 65.5 kg - Imaging and Cardiology Imaging: Impressions Extremity Arterial Study 09/15/18 00:00 CONCLUSION: 1. Diminished finger brachial indices at each digit most characteristic of steno-occlusive disease in the right upper extremity. Chest X-Ray 09/16/18 11:26 CONCLUSION: Persistent consolidation and moderate-sized left pleural effusion. The right pleural effusion has resolved or has been removed without evidence of pneumothorax Assessment and Plan - Assessment (1) DKA (diabetic ketoacidoses) Code(s): E13.10 - Other specified diabetes mellitus with ketoacidosis without coma Status: Acute (2) Acute UTI Code(s): N39.0 - Urinary tract infection, site not specified Status: Acute (3) ESRD (end stage renal disease) on dialysis Code(s): N18.6 - End stage renal disease; Z99.2 - Dependence on renal dialysis Status: Acute (4) Diabetes Code(s): E11.9 - Type 2 diabetes mellitus without complications Status: Acute (5) Hypertension Code(s): I10 - Essential (primary) hypertension Status: Acute (6) Pain and swelling of right upper extremity Code(s): M79.601 - Pain in right arm; M79.89 - Other specified soft tissue disorders Status: Acute (7) Fluid overload Code(s): E87.70 - Fluid overload, unspecified Status: Acute - Plan Patient continues to be in SR, no new cardiac issues. Continue with current cardiac treatment plan and adjust as needed. We will continue to follow the patient during her hospitalization and see her back for follow-up in our office post discharge. Patient was seen and evaluated by Dr. Reddy who participated in care, management and decision-making. - Attending Attestation Patient seen and examined. I reviewed and agree with the evaluation and plan as presented. DM still poorly controlled. No new cardiac issues. (1) DKA (diabetic ketoacidoses) Qualifiers: Diabetes mellitus type: type 2 Diabetes mellitus complication detail: without coma Qualified Code(s): E11.10 - Type 2 diabetes mellitus with ketoacidosis without coma (4) Diabetes Qualifiers: Diabetes mellitus jail insulin use: with jail use (7) Fluid overload Qualifiers: Hypervolemia type: unspecified Qualified Code(s): E87.70 - Fluid overload, unspecified
--- NOTE | 2018-09-17 16:17 | P.PNIM ---
Subjective Interval history: Patient says she is feeling alright. Denies any chest pain. Reports shortness of breath overall improved. Physical Exam Vital signs: Vital Signs 09/16/18 17:00 09/16/18 17:01 09/16/18 17:40 Temperature Pulse Rate 78 Respiratory Rate 16 Blood Pressure Pulse Oximetry 95 09/16/18 18:00 09/16/18 19:00 09/16/18 20:00 Temperature 98.3 F Pulse Rate 74 75 74 Respiratory Rate Blood Pressure 147/65 H Pulse Oximetry 98 98 09/16/18 21:00 09/16/18 22:00 09/16/18 23:00 Temperature 98.2 F Pulse Rate 82 74 73 Respiratory Rate Blood Pressure 154/70 H Pulse Oximetry 93 L 09/17/18 00:00 09/17/18 00:11 09/17/18 02:00 Temperature Pulse Rate 73 84 84 Respiratory Rate 16 Blood Pressure Pulse Oximetry 09/17/18 03:00 09/17/18 04:00 09/17/18 05:00 Temperature 98.5 F Pulse Rate 85 86 84 Respiratory Rate 16 Blood Pressure 154/68 H Pulse Oximetry 92 L 09/17/18 06:00 09/17/18 07:00 09/17/18 11:00 Temperature 97.8 F 97.9 F Pulse Rate 84 84 82 Respiratory Rate 18 20 Blood Pressure 159/70 H 154/68 H Pulse Oximetry 93 L 94 L 09/17/18 11:15 09/17/18 11:33 Temperature Pulse Rate 77 Respiratory Rate 18 Blood Pressure Pulse Oximetry 92 L Intake & Output 09/16/18 09/17/18 09/17/18 18:59 06:59 18:59 Intake Total 800 / 800 480 / 480 Output Total 3300 / 3300 Balance -2500 / -2500 480 / 480 Weight 65.5 kg Intake: Oral 800 / 800 480 / 480 Output: Urine 300 / 300 Hemodialysis Amount 3000 / 3000 Other: # Voids 1 Narrative: GENERAL: Patient sitting up in bed. Appears comfortable. SKIN: Warm and dry. HEAD: Normocephalic. EYES: No scleral icterus. No injection or drainage. NECK: Supple, trachea midline. No JVD. CARDIOVASCULAR: Regular rate and rhythm without murmurs, gallops, or rubs. RESPIRATORY: Breath sounds equal bilaterally. No accessory muscle use. GASTROINTESTINAL: Abdomen soft, non-tender, nondistended. MUSCULOSKELETAL: No cyanosis, or edema. Small dry wound of the right thumb BACK: Nontender without obvious deformity. No CVA tenderness. Results - Labs CBC & Chem 7: 09/17/18 04:15 09/17/18 04:15 Laboratory Results - last 24 hr 09/16/18 09/16/18 09/17/18 17:22 19:52 04:15 WBC 6.7 RBC 3.77 L Hgb 11.3 L Hct 35.9 MCV 95.0 MCH 30.1 MCHC 31.6 L RDW 17.0 Plt Count 230 MPV 8.5 Sodium Potassium Chloride Carbon Dioxide Anion Gap BUN Creatinine Estimated GFR POC Glucose 315 H 333 H Random Glucose Calcium 09/17/18 09/17/18 09/17/18 04:15 08:08 08:11 WBC RBC Hgb Hct MCV MCH MCHC RDW Plt Count MPV Sodium 135 L Potassium 4.2 Chloride 97 L Carbon Dioxide 29.8 Anion Gap 8 BUN 28 H Creatinine 2.58 H Estimated GFR 19 L POC Glucose 464 H* 417 H Random Glucose 367 H Calcium 8.2 L 09/17/18 12:04 WBC RBC Hgb Hct MCV MCH MCHC RDW Plt Count MPV Sodium Potassium Chloride Carbon Dioxide Anion Gap BUN Creatinine Estimated GFR POC Glucose 397 H Random Glucose Calcium Microbiology 09/15/18 10:55 Blood - Peripheral Aerobic Blood Culture - Preliminary No growth in 2 days 09/15/18 10:55 Blood - Peripheral Anaerobic Blood Culture - Preliminary No growth in 2 days 09/15/18 10:44 Blood - Peripheral Aerobic Blood Culture - Preliminary No growth in 2 days 09/15/18 10:44 Blood - Peripheral Anaerobic Blood Culture - Preliminary No growth in 2 days 09/15/18 10:58 Blood - Peripheral Aerobic Blood Culture - Preliminary No growth in 2 days 09/15/18 10:58 Blood - Peripheral Anaerobic Blood Culture - Preliminary No growth in 2 days - Imaging Impressions Chest X-Ray 09/16/18 11:26 CONCLUSION: Persistent consolidation and moderate-sized left pleural effusion. The right pleural effusion has resolved or has been removed without evidence of pneumothorax Assessment and Plan - Assessment (1) CHF (congestive heart failure) Code(s): I50.9 - Heart failure, unspecified Status: Acute (2) Pleural effusion Code(s): J90 - Pleural effusion, not elsewhere classified Status: Acute (3) Hypoxia Code(s): R09.02 - Hypoxemia Status: Acute (4) ESRD on dialysis Code(s): N18.6 - End stage renal disease; Z99.2 - Dependence on renal dialysis Status: Acute (5) DM (diabetes mellitus) Code(s): E11.9 - Type 2 diabetes mellitus without complications Status: Acute - Plan 67-year-old female on hemodialysis admitted with acute diastolic CHF. Patient is also a brittle diabetic who presented with blood sugar of 700. She had one episode of acute hypoglycemia. She was transferred to the [facility] but is now returned to the PCU. //CHF: Acute on Chronic. Diastolic. Echo 08/09/18 w/ EF 50-55%, BNP 2644, CXR w/ chronic effusions, images reviewed. Continue home Bumex, monitor I/O, appreciate nephrology input. Dialysis as scheduled. Seems to be stable from a respiratory standpoint. //Acute symptomatic hypoglycemia/DM: Brittle diabetic, presented with BS in the 700's. Glucose in the 20s on 09/13/18. Received Levemir the night before. Treated with D50 and IVF. - Continue SSI with accuchecks. - Diabetic diet. - Blood glucose spiked in the 300's again. Resume Levemir at a lower dose 10 unit in AM. - Blood glucose better today. Continue to monitor. = Still glucose in the 400s today. Will switch to Levemir 5 units twice daily, and increase sliding scale to moderate. //Right upper extremity steal syndrome/H/O AV graft: -Appreciate vascular surgery following. Duplex ultrasound ordered. Vascular surgery planning for revision. = 09/17. Plan for angiogram on 09/19 as per vascular surgery. Appreciate assistance. //CAD, abnormalities on tele with concerns for Atrial flutter: No cardiovascular complaints. Unsure if she has a history of Afib. - Patient evaluated by Cardiology, Dr. Reddy. tele findings believed to be artifacts - Continue Coreg, Effient, Statin. Monitor on Tele //Pleural Effusion: recent admit w/ large left effusion s/p thoracentesis/ chest tube, CXR w/ pleural effusions, left greater than right, however stable. -Pulmonology following - Continue current treatment. If Effusion stable. //Hypoxemia: O2 sat 86% on RA upon arrival, O2 dependent at night per patient, currently O2 sat 94% on 4L NC, monitor closely. DuoNeb prn. -Respiratory status seems to be stable today. //ESRD on HD: M/W/F -Appreciate nephrology following. //DVT Prophylaxis: SCD/Teds Discharge Planning: Vascular surgery to perform angiogram of right upper extremity fistula on Wednesday.
[2018-09-17] MEDS ORDERED: Insulin Detemir Inj 1,000 UNIT/10 ML Vial SQ SCH (21:00)
[2018-09-17] MEDS: Gabapentin 100 MG Capsule PO SCH (21:26)
[2018-09-18] MEDS: Senna/Docusate Sodium 8.6/50 MG Tablet PO SCH ×2 (08:24→21:48)
[2018-09-18] MEDS: Carvedilol 6.25 MG Tablet PO SCH ×2 (08:24→21:47)
[2018-09-18] MEDS: Sodium Chloride 0.9% 2 ML Flush BID IV.FLUSH SCH ×2 (08:25→22:02)
[2018-09-18] MEDS: Azithromycin 250 MG Tablet PO SCH (08:25)
[2018-09-18] MEDS: Calcium Acetate 667 MG Capsule PO SCH ×3 (08:25→18:43)
[2018-09-18] MEDS: Insulin NovoLOG Aspart Correctional Sugar Inj SQ SCH ×4 (08:37→21:48)
[2018-09-18] MEDS: Budesonide-Formoterol 160/4.5 MCG 6 GM Inhaler INH SCH ×2 (09:12→22:02)
[2018-09-18] MEDS: Insulin Detemir Inj 1,000 UNIT/10 ML Vial SQ SCH ×2 (09:12→21:48)
--- NOTE | 2018-09-18 09:26 | P.PNIM ---
Subjective Interval history: Patient says she is feeling comfortable this morning. Denies any chest pain or shortness of breath. Denies nausea or vomiting. Physical Exam Vital signs: Vital Signs 09/17/18 10:00 09/17/18 11:00 09/17/18 11:15 Temperature 97.9 F Pulse Rate 84 82 Respiratory Rate 20 Blood Pressure 154/68 H Pulse Oximetry 94 L 92 L 09/17/18 11:33 09/17/18 12:00 09/17/18 13:00 Temperature Pulse Rate 77 68 66 Respiratory Rate 18 Blood Pressure Pulse Oximetry 09/17/18 14:00 09/17/18 15:00 09/17/18 16:00 Temperature 97.9 F Pulse Rate 61 68 67 Respiratory Rate 20 Blood Pressure 124/58 L Pulse Oximetry 96 09/17/18 16:44 09/17/18 17:00 09/17/18 18:00 Temperature Pulse Rate 82 68 73 Respiratory Rate 18 Blood Pressure Pulse Oximetry 09/17/18 19:00 09/17/18 20:00 09/17/18 20:08 Temperature 98.3 F Pulse Rate 69 68 66 Respiratory Rate 16 16 Blood Pressure 129/59 L Pulse Oximetry 91 L 96 09/17/18 21:00 09/17/18 22:00 09/17/18 23:00 Temperature 98.2 F Pulse Rate 80 80 69 Respiratory Rate 16 Blood Pressure 135/63 Pulse Oximetry 90 L 09/17/18 23:22 09/17/18 23:39 09/18/18 00:00 Temperature Pulse Rate 68 Respiratory Rate Blood Pressure Pulse Oximetry 97 98 09/18/18 01:00 09/18/18 01:08 09/18/18 02:00 Temperature Pulse Rate 66 80 80 Respiratory Rate 20 Blood Pressure Pulse Oximetry 09/18/18 03:00 09/18/18 04:00 09/18/18 05:00 Temperature 97.7 F Pulse Rate 81 75 70 Respiratory Rate 16 Blood Pressure 151/67 H Pulse Oximetry 92 L Intake & Output 09/17/18 09/18/18 09/18/18 18:59 06:59 18:59 Intake Total 480 / 480 Output Total 150 / 150 Balance -150 / -150 480 / 480 Weight 66.5 kg Intake: Oral 480 / 480 Output: Urine 150 / 150 Other: # Voids 1 Date of Last Bowel Movement 09/17/18 09/17/18 Narrative: GENERAL: Patient sitting up in bed. Appears comfortable. Alert. SKIN: Warm and dry. HEAD: Normocephalic. EYES: No scleral icterus. No injection or drainage. NECK: Supple, trachea midline. No JVD. CARDIOVASCULAR: Regular rate and rhythm without murmurs, gallops, or rubs. RESPIRATORY: Breath sounds equal bilaterally. No accessory muscle use. GASTROINTESTINAL: Abdomen soft, non-tender, nondistended. MUSCULOSKELETAL: No cyanosis, or edema. Small dry wound of the right thumb BACK: Nontender without obvious deformity. No CVA tenderness. Results - Labs CBC & Chem 7: 09/17/18 04:15 09/17/18 04:15 Laboratory Results - last 24 hr 09/17/18 09/17/18 09/17/18 12:04 17:13 19:55 POC Glucose 397 H 166 H 151 H 09/18/18 09/18/18 09/18/18 08:15 08:29 08:51 POC Glucose 49 L* 60 L 127 H Microbiology 09/15/18 10:55 Blood - Peripheral Aerobic Blood Culture - Preliminary No growth in 2 days 09/15/18 10:55 Blood - Peripheral Anaerobic Blood Culture - Preliminary No growth in 2 days 09/15/18 10:44 Blood - Peripheral Aerobic Blood Culture - Preliminary No growth in 2 days 09/15/18 10:44 Blood - Peripheral Anaerobic Blood Culture - Preliminary No growth in 2 days 09/15/18 10:58 Blood - Peripheral Aerobic Blood Culture - Preliminary No growth in 2 days 09/15/18 10:58 Blood - Peripheral Anaerobic Blood Culture - Preliminary No growth in 2 days Assessment and Plan - Assessment (1) CHF (congestive heart failure) Code(s): I50.9 - Heart failure, unspecified Status: Acute (2) Pleural effusion Code(s): J90 - Pleural effusion, not elsewhere classified Status: Acute (3) Hypoxia Code(s): R09.02 - Hypoxemia Status: Acute (4) ESRD on dialysis Code(s): N18.6 - End stage renal disease; Z99.2 - Dependence on renal dialysis Status: Acute (5) DM (diabetes mellitus) Code(s): E11.9 - Type 2 diabetes mellitus without complications Status: Acute - Plan 67-year-old female on hemodialysis admitted with acute diastolic CHF. Patient is also a brittle diabetic who presented with blood sugar of 700. She had one episode of acute hypoglycemia. She was transferred to the [facility] [place] [facility] but is now returned to the PCU. //CHF: Acute on Chronic. Diastolic. Echo 08/09/18 w/ EF 50-55%, BNP 2644, CXR w/ chronic effusions, images reviewed. Continue home Bumex, monitor I/O, appreciate nephrology input. Dialysis as scheduled. //Acute symptomatic hypoglycemia/DM: Brittle diabetic, presented with BS in the 700's. Glucose in the 20s on 09/13/18. Received Levemir the night before. Treated with D50 and IVF. - Continue SSI with accuchecks. - Diabetic diet. - Blood glucose spiked in the 300's again. Resume Levemir at a lower dose 10 unit in AM. - Blood glucose better today. Continue to monitor. = Still glucose in the 400s today. Will switch to Levemir 5 units twice daily, and increase sliding scale to moderate. = 09/18. Patient with a glucose of 49 this morning. Have adjusted insulin regimen. //Right upper extremity steal syndrome/H/O AV graft: -Appreciate vascular surgery following. Duplex ultrasound ordered. Vascular surgery planning for revision. = 09/18. Plan for angiogram on 09/19 as per vascular surgery. Appreciate assistance. //CAD, abnormalities on tele with concerns for Atrial flutter: No cardiovascular complaints. Unsure if she has a history of Afib. - Patient evaluated by Cardiology, Dr. Reddy. tele findings believed to be artifacts - Continue Coreg, Effient, Statin. Monitor on Tele //Pleural Effusion: recent admit w/ large left effusion s/p thoracentesis/ chest tube, CXR w/ pleural effusions, left greater than right, however stable. -Pulmonology following - Continue current treatment. If Effusion stable. = 09/18. Increased oxygen requirement to 6 L nasal cannula. Will check chest x -ray to monitor effusion. Pulmonology following. Appreciate assistance. //Hypoxemia: O2 sat 86% on RA upon arrival, O2 dependent at night per patient, currently O2 sat 94% on 4L NC, monitor closely. DuoNeb prn. -Respiratory status seems to be stable today. = 09/18. Increasing ostial requirement. Will check BNP, repeat chest x-ray. //ESRD on HD: M/W/F -Appreciate nephrology following. //DVT Prophylaxis: SCD/Teds Discharge Planning: Vascular surgery to perform angiogram of right upper extremity fistula on Wednesday.
--- NOTE | 2018-09-18 09:53 | P.PNNP ---
Subjective Interval history: No acute complaints Physical Exam Vital signs: Vital Signs 09/17/18 10:00 09/17/18 11:00 09/17/18 11:15 Temperature 97.9 F Pulse Rate 84 82 Respiratory Rate 20 Blood Pressure 154/68 H Pulse Oximetry 94 L 92 L 09/17/18 11:33 09/17/18 12:00 09/17/18 13:00 Temperature Pulse Rate 77 68 66 Respiratory Rate 18 Blood Pressure Pulse Oximetry 09/17/18 14:00 09/17/18 15:00 09/17/18 16:00 Temperature 97.9 F Pulse Rate 61 68 67 Respiratory Rate 20 Blood Pressure 124/58 L Pulse Oximetry 96 09/17/18 16:44 09/17/18 17:00 09/17/18 18:00 Temperature Pulse Rate 82 68 73 Respiratory Rate 18 Blood Pressure Pulse Oximetry 09/17/18 19:00 09/17/18 20:00 09/17/18 20:08 Temperature 98.3 F Pulse Rate 69 68 66 Respiratory Rate 16 16 Blood Pressure 129/59 L Pulse Oximetry 91 L 96 09/17/18 21:00 09/17/18 22:00 09/17/18 23:00 Temperature 98.2 F Pulse Rate 80 80 69 Respiratory Rate 16 Blood Pressure 135/63 Pulse Oximetry 90 L 09/17/18 23:22 09/17/18 23:39 09/18/18 00:00 Temperature Pulse Rate 68 Respiratory Rate Blood Pressure Pulse Oximetry 97 98 09/18/18 01:00 09/18/18 01:08 09/18/18 02:00 Temperature Pulse Rate 66 80 80 Respiratory Rate 20 Blood Pressure Pulse Oximetry 09/18/18 03:00 09/18/18 04:00 09/18/18 05:00 Temperature 97.7 F Pulse Rate 81 75 70 Respiratory Rate 16 Blood Pressure 151/67 H Pulse Oximetry 92 L Intake & Output 09/17/18 09/18/18 09/18/18 18:59 06:59 18:59 Intake Total 480 / 480 Output Total 150 / 150 Balance -150 / -150 480 / 480 Weight 66.5 kg Intake: Oral 480 / 480 Output: Urine 150 / 150 Other: # Voids 1 Date of Last Bowel Movement 09/17/18 09/17/18 - Constitutional no acute distress - Routine HEENT Exam Head: Present: normocephalic Eye: Present: EOMI ENT: Present: mucous membranes moist - Routine Neck Exam Present: supple - Routine Respiratory Exam Present: decreased breath sounds - Routine Cardiovascular Exam Present: RRR - Routine Abdominal Exam Present: soft - Routine Extremities Exam Present: vascular access - Routine Skin Exam Present: intact - Routine Neurological Exam Present: alert, oriented X3 - Detailed Neurological Exam: Coma Scale Eye Opening: Spontaneous - Routine Psychiatric Exam Present: normal affect Assessment and Plan - Assessment (1) ESRD (end stage renal disease) on dialysis Code(s): N18.6 - End stage renal disease; Z99.2 - Dependence on renal dialysis Status: Acute Plan: HD done Wednesday, plan next HD Wednesday Dyspnea overnight, and now stable with nasal cannula oxygen. 3 UF achieved on Wednesday - continue to monitor. History of pleural effusion in past - CXR ordered. Apparent steal syndrome at right thumb - plan for angiogram with Vascular Surgery tomorrow for steal syndrome. Appreciate assistance. (2) Fluid overload Code(s): E87.70 - Fluid overload, unspecified Status: Acute Qualifiers: Hypervolemia type: unspecified Qualified Code(s): E87.70 - Fluid overload, unspecified Plan: Stable, continue UF with HD (3) Hypertension Code(s): I10 - Essential (primary) hypertension Status: Acute Plan: Better controlled On Coreg, hydralazine, and nifedipine. Will monitor
--- NOTE | 2018-09-18 11:08 | XR ---
EXAM DATE: 09/18/2018 12:00 AM EDT AGE/SEX: 67 years / Female INDICATIONS: Short of breath. CLINICAL DATA: This is the patient's subsequent encounter. Patient reports that signs and symptoms h ave been present for 1 month and indicates a pain score of 2/10. MEDICAL/SURGICAL HISTORY: . . Av fistula, anemia, cad, chf, chronic back pain, copd, dm, esrd, hemodialysis, hyperlipidemia, hyperkalemia, hypertension, hypoxia. . laminectomy, vag hysterectomy, c section, laser refr sx, tonsillectomy, appendectomy, heart artery stent COMPARISON: C, CHEST 1V SINGLE AP, 09/16/2018. . FINDINGS: A single AP erect portable view of the chest was obtained. This demonstrates an interval increase in opacity in the left lung base with blunting of left costophrenic angle. The right lung remains clear. The heart size appears mildly prominent. Atherosclerotic changes are again noted in the aorta. The b jacklyn thorax remains intact in appearance. Overlying electrocardiogram leads are present. CONCLUSION: Increased opacification in the left lung base which may represent increased infiltrate and/or effusio n. Electronically signed by: Nura Niño MD 09/18/2018 11:06 AM EDT
--- NOTE | 2018-09-18 11:08 | P.PNCA ---
Subjective Interval history: Patient denies any CP, pressure, dizziness, edema or palpitations. Patient states that she had one episode of SOB last night, which has resolved at this time. Medications and Allergies Allergies Allergy/AdvReac Type Severity Reaction Status Date / Time propoxyphene Allergy Intermediate RASH Verified 07/18/18 07:41 Home Medications Medication Instructions Recorded Confirmed Type albuterol sulfate [Ventolin HFA] 2 puff INHALATION Q6H PRN 06/03/18 09/11/18 History aspirin 81 mg PO DAILY 06/03/18 09/11/18 History budesonide-formoterol [Symbicort] 2 puff INHALATION BID 06/03/18 09/11/18 History atorvastatin 80 mg PO HS 08/30/18 09/11/18 History insulin detemir U-100 [Levemir 20 unit SUBCUT BID 08/30/18 09/11/18 History FlexTouch U-100 Insuln] mupirocin 1 applic TOPICAL BID 08/30/18 09/11/18 History prasugrel 10 mg PO DAILY 08/30/18 09/11/18 History vit B comp no.1-gpesd-R-biotin 1 tab PO DAILY 08/30/18 09/11/18 History [Nephro-Bonita Rx] Active Medications: Active Medications Acetaminophen (Tylenol) 650 mg PO Q4H PRN PRN Reason: Temp > 100.4 OR PAIN 1-5 Last Admin: 09/11/18 21:37 Dose: 650 mg Acetaminophen (Tylenol) 650 mg PO UNSCH PRN PRN Reason: SEE LABEL COMMENTS Al Hydroxide/Mg Hydroxide (Milk Of Leonidas Luke) 30 ml PO Q12H PRN PRN Reason: Mild Constipation Albuterol (Duoneb Neb (Prn)) 1 ampul NEB Q4HR NEB PRN PRN Reason: SOB/WHEEZING Last Admin: 09/18/18 01:08 Dose: 1 ampul Aspirin (Ecotrin) 81 mg PO DAILY [facility] Last Admin: 09/18/18 08:24 Dose: 81 mg Atorvastatin Calcium (Lipitor) 80 mg PO HS [facility] Last Admin: 09/17/18 21:25 Dose: 80 mg Azithromycin (Zithromax) 500 mg PO DAILY [facility] Last Admin: 09/18/18 08:25 Dose: 500 mg Bisacodyl (Dulcolax Supp) 10 mg RECTAL DAILY PRN PRN Reason: SEVERE CONSITIPATION Last Admin: 09/17/18 14:23 Dose: 10 mg Budesonide/Formoterol Fumarate (Symbicort 160/4.5 Mcg Inh) 2 puff INH BID [facility] Last Admin: 09/18/18 09:12 Dose: 2 puff Bumetanide (Bumex) 1 mg PO BID [facility] Last Admin: 09/18/18 08:24 Dose: 1 mg Calcium Acetate (Phoslo) 667 mg PO TID [facility] Last Admin: 09/18/18 08:25 Dose: 667 mg Carvedilol (Coreg) 6.25 mg PO BID [facility] Last Admin: 09/18/18 08:24 Dose: 6.25 mg Clonidine HCl (Catapres) 0.1 mg PO UNSCH PRN PRN Reason: SEE LABEL COMMENTS Dextrose (D50w Vial) 50 ml IV.PUSH UNSCH PRN PRN Reason: PER HYPOGLYCEMIA PROTOCOL Last Admin: 09/13/18 09:00 Dose: 50 ml Diphenhydramine HCl (Benadryl) 25 mg PO UNSCH PRN PRN Reason: SEE LABEL COMMENTS Epoetin Low (Epogen Inj) 6,000 unit IV.PUSH UNSCH PRN PRN Reason: SEE LABEL COMMENTS Last Admin: 09/16/18 11:27 Dose: 6,000 unit Gabapentin (Neurontin) 100 mg PO [facility] Last Admin: 09/17/18 21:26 Dose: 100 mg Gelatin (Gelfoam 12 Mm/7 Mm Topical) 1 foam TOPICAL PRN PRN PRN Reason: help stop bleeding from site Last Admin: 09/16/18 11:27 Dose: 1 foam Gentamicin Sulfate (Gentamicin Inj) 20 mg OTHER WITH DIALYSIS PRN PRN Reason: Dwell Gentamycin Lock Glucagon (Glucagon Inj) 1 mg OTHER PRN PRN PRN Reason: for Hypoglycemia Protocol Heparin Sodium (Porcine) (Heparin Inj) 8,000 units OTHER WITH DIALYSIS PRN PRN Reason: for machine prime Heparin Sodium (Porcine) (Heparin Inj) 1,000 units OTHER WITH DIALYSIS PRN PRN Reason: Dwell Heparin to Fill Catheter Hydralazine HCl (Apresoline) 100 mg PO TID [facility] Last Admin: 09/18/18 08:24 Dose: 100 mg Albumin Human (Flexbumin 25% Inj) 100 mls @ 60 mls/hr IV.SIG WITH DIALYSIS PRN PRN Reason: hypotension / volume replace Sodium Chloride (Ns Inj) 1,000 mls @ 0 mls/hr OTHER .Q0M PRN PRN Reason: for prime and rinse back Sodium Chloride (Ns Inj) 1,000 mls @ 200 mls/hr OTHER .Q5H PRN PRN Reason: for dialyzer flush PRN Sodium Chloride (Ns Inj) 1,000 mls @ 0 mls/hr IV.CONT .Q0M PRN PRN Reason: hypotension / volume replace Insulin Aspart (Novolog Insulin Correctional Sugar Inj) 0 unit SQ ACHS [facility]; Protocol Last Admin: 09/18/18 08:37 Dose: Not Given Insulin Detemir (Levemir Inj) 5 unit SQ BID [facility] Last Admin: 09/18/18 09:12 Dose: 5 unit Lactulose (Lactulose Liq) 30 ml PO DAILY PRN PRN Reason: SEVERE CONSITIPATION Mannitol (Mannitol Inj) 12.5 gm IV.PUSH UNSCH PRN PRN Reason: hypotension / volume replace Nifedipine (Procardia Xl) 60 mg PO DAILY [facility] Last Admin: 09/18/18 08:24 Dose: 60 mg Nitroglycerin (Nitrostat Sl) 0.4 mg SL Q5M PRN PRN Reason: CHEST PAIN Ondansetron HCl (Zofran Inj) 4 mg IV.PUSH Q6H PRN PRN Reason: NAUSEA OR VOMITING Last Admin: 09/13/18 14:28 Dose: 4 mg Ondansetron HCl (Zofran Inj) 4 mg IV.PUSH UNSCH PRN PRN Reason: NAUSEA OR VOMITING Oxycodone/Acetaminophen (Percocet 5/325 Mg) 1 tab PO Q4H PRN PRN Reason: PAIN SCALE 6 TO 10 Last Admin: 09/18/18 09:12 Dose: 1 tab Prasugrel (Effient) 10 mg PO DAILY [facility] Last Admin: 09/18/18 08:25 Dose: 10 mg Senna/Docusate Sodium (Jocelyn-Colace) 1 tab PO BID [facility] Last Admin: 09/18/18 08:24 Dose: 1 tab Sennosides (Senokot) 17.2 mg PO Q12H PRN PRN Reason: Moderate Constipation Sodium Chloride (Ns Flush) 5 ml IV.FLUSH PRN PRN PRN Reason: flush each lumen during HD Sodium Chloride (Ns Flush) 2 ml IV.FLUSH BID YAMILET Last Admin: 09/18/18 08:25 Dose: 2 ml Sodium Chloride (Ns Flush) 2 ml IV.FLUSH PRN PRN PRN Reason: FLUSH AFTER USING IV ACCESS Physical Exam Vital signs: Vital Signs 09/17/18 11:00 09/17/18 11:15 09/17/18 11:33 Temperature 97.9 F Pulse Rate 82 77 Respiratory Rate 20 18 Blood Pressure 154/68 H Pulse Oximetry 94 L 92 L 09/17/18 12:00 09/17/18 13:00 09/17/18 14:00 Temperature Pulse Rate 68 66 61 Respiratory Rate Blood Pressure Pulse Oximetry 09/17/18 15:00 09/17/18 16:00 09/17/18 16:44 Temperature 97.9 F Pulse Rate 68 67 82 Respiratory Rate 20 18 Blood Pressure 124/58 L Pulse Oximetry 96 09/17/18 17:00 09/17/18 18:00 09/17/18 19:00 Temperature 98.3 F Pulse Rate 68 73 69 Respiratory Rate 16 Blood Pressure 129/59 L Pulse Oximetry 91 L 09/17/18 20:00 09/17/18 20:08 09/17/18 21:00 Temperature Pulse Rate 68 66 80 Respiratory Rate 16 Blood Pressure Pulse Oximetry 96 09/17/18 22:00 09/17/18 23:00 09/17/18 23:22 Temperature 98.2 F Pulse Rate 80 69 Respiratory Rate 16 Blood Pressure 135/63 Pulse Oximetry 90 L 97 09/17/18 23:39 09/18/18 00:00 09/18/18 01:00 Temperature Pulse Rate 68 66 Respiratory Rate Blood Pressure Pulse Oximetry 98 09/18/18 01:08 09/18/18 02:00 09/18/18 03:00 Temperature 97.7 F Pulse Rate 80 80 81 Respiratory Rate 20 16 Blood Pressure 151/67 H Pulse Oximetry 92 L 09/18/18 04:00 09/18/18 05:00 Temperature Pulse Rate 75 70 Respiratory Rate Blood Pressure Pulse Oximetry Intake & Output 09/17/18 09/18/18 09/18/18 18:59 06:59 18:59 Intake Total 480 / 480 Output Total 150 / 150 Balance -150 / -150 480 / 480 Weight 66.5 kg Intake: Oral 480 / 480 Output: Urine 150 / 150 Other: # Voids 1 Date of Last Bowel Movement 09/17/18 09/17/18 - Constitutional no acute distress - Routine HEENT Exam Head: Present: normocephalic Eye: Present: PERRL ENT: Present: mucous membranes moist - Routine Neck Exam Present: full ROM - Routine Respiratory Exam Present: rhonchi Comments: Rhonchi noted in the left lobes, crackles noted in the right lower lobes. - Routine Cardiovascular Exam Present: S1, S2. Absent: murmur, gallop, rubs - Routine Abdominal Exam Present: normoactive bowel sounds - Routine Extremities Exam Present: full ROM, pulses intact, normal capillary refill. Absent: cyanosis, clubbing, edema - Routine Skin Exam Present: intact - Routine Neurological Exam Present: oriented X3 - Detailed Neurological Exam: Coma Scale Eye Opening: Spontaneous Verbal Response: Oriented Motor Response: Obey commands Zeny Coma Scale Total: 15 - Routine Psychiatric Exam Present: normal affect Results 09/17/18 04:15 09/17/18 04:15 CBC 09/17/18 Range/Units 04:15 WBC 6.7 (4.0-11.0) th/mm3 RBC 3.77 L (4.00-5.30) mil/mm3 Hgb 11.3 L (11.6-15.3) gm/dL Hct 35.9 (35.0-46.0) % Plt Count 230 (150-450) th/mm3 Comprehensive Metabolic Panel 09/17/18 Range/Units 04:15 Sodium 135 L (136-145) meq/L Potassium 4.2 (3.5-5.1) meq/L Chloride 97 L (98-107) meq/L Carbon Dioxide 29.8 (21.0-32.0) meq/L BUN 28 H (7-18) mg/dL Creatinine 2.58 H (0.50-1.00) mg/dL Calcium 8.2 L (8.5-10.1) mg/dL Intake and Output 09/17/18 09/18/18 09/18/18 22:59 06:59 14:59 Intake Total 480 / 480 Output Total 150 / 150 Balance -150 / -150 480 / 480 Intake: Oral 480 / 480 Output: Urine 150 / 150 Other: # Voids 1 Date of Last Bowel Movement 09/17/18 09/17/18 Weight 66.5 kg - Imaging and Cardiology Imaging: Impressions Chest X-Ray 09/16/18 11:26 CONCLUSION: Persistent consolidation and moderate-sized left pleural effusion. The right pleural effusion has resolved or has been removed without evidence of pneumothorax Assessment and Plan - Assessment (1) DKA (diabetic ketoacidoses) Code(s): E13.10 - Other specified diabetes mellitus with ketoacidosis without coma Status: Acute (2) Acute UTI Code(s): N39.0 - Urinary tract infection, site not specified Status: Acute (3) ESRD (end stage renal disease) on dialysis Code(s): N18.6 - End stage renal disease; Z99.2 - Dependence on renal dialysis Status: Acute (4) Diabetes Code(s): E11.9 - Type 2 diabetes mellitus without complications Status: Acute (5) Hypertension Code(s): I10 - Essential (primary) hypertension Status: Acute (6) Pain and swelling of right upper extremity Code(s): M79.601 - Pain in right arm; M79.89 - Other specified soft tissue disorders Status: Acute (7) Fluid overload Code(s): E87.70 - Fluid overload, unspecified Status: Acute - Plan No new cardiac issues, patient remains in SR We will continue with current treatment plan. Patient scheduled for dialysis tomorrow. Patient Chest XR has worsened, we will consult pulmonary for further evaluation. We will continue to follow the patient during her hospitalization and see her back for follow-up in our office post discharge. Patient was seen and evaluated by Dr. Reddy who participated in care, management and decision-making. - Attending Attestation Patient seen and examined. I reviewed and agree with the evaluation and plan as presented. SOB last night. CXR worse, recommend pulmonary eval. Dialysis tomorrow as planned. 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
--- NOTE | 2018-09-18 14:12 | P.PNVS ---
Subjective Subjective/Hospital Course: Doing well, reports SOB overnight that has resolved Pain in right thumb controlled Objective Vital Signs / I&O: Vital Signs 09/17/18 15:00 09/17/18 16:00 09/17/18 16:44 Temperature 97.9 F Pulse Rate 68 67 82 Respiratory Rate 20 18 Blood Pressure 124/58 L Pulse Oximetry 96 09/17/18 17:00 09/17/18 18:00 09/17/18 19:00 Temperature 98.3 F Pulse Rate 68 73 69 Respiratory Rate 16 Blood Pressure 129/59 L Pulse Oximetry 91 L 09/17/18 20:00 09/17/18 20:08 09/17/18 21:00 Temperature Pulse Rate 68 66 80 Respiratory Rate 16 Blood Pressure Pulse Oximetry 96 09/17/18 22:00 09/17/18 23:00 09/17/18 23:22 Temperature 98.2 F Pulse Rate 80 69 Respiratory Rate 16 Blood Pressure 135/63 Pulse Oximetry 90 L 97 09/17/18 23:39 09/18/18 00:00 09/18/18 01:00 Temperature Pulse Rate 68 66 Respiratory Rate Blood Pressure Pulse Oximetry 98 09/18/18 01:08 09/18/18 02:00 09/18/18 03:00 Temperature 97.7 F Pulse Rate 80 80 81 Respiratory Rate 20 16 Blood Pressure 151/67 H Pulse Oximetry 92 L 09/18/18 04:00 09/18/18 05:00 09/18/18 07:00 Temperature 97.5 F L Pulse Rate 75 70 80 Respiratory Rate 16 Blood Pressure 151/67 H Pulse Oximetry 98 09/18/18 08:00 09/18/18 09:00 09/18/18 10:00 Temperature Pulse Rate 80 78 76 Respiratory Rate Blood Pressure Pulse Oximetry 09/18/18 11:00 Temperature 97.7 F Pulse Rate 65 Respiratory Rate 18 Blood Pressure 151/67 H Pulse Oximetry 98 Intake & Output 09/17/18 09/18/18 09/18/18 18:59 06:59 18:59 Intake Total 480 / 480 Output Total 150 / 150 Balance -150 / -150 480 / 480 Weight 66.5 kg Intake: Oral 480 / 480 Output: Urine 150 / 150 Other: # Voids 1 Date of Last Bowel Movement 09/17/18 09/17/18 Physical Exam: Right thumb with dry scab, TTP Biphasic radial/ulnar signals that augments with graft occlusion Laboratory Results - last 24 hr 09/17/18 09/17/18 09/18/18 17:13 19:55 08:15 POC Glucose 166 H 151 H 49 L* B-Natriuretic Peptide 09/18/18 09/18/18 09/18/18 08:29 08:51 11:07 POC Glucose 60 L 127 H B-Natriuretic Peptide 1499 H 09/18/18 12:49 POC Glucose 139 H B-Natriuretic Peptide Microbiology 09/15/18 10:55 Aerobic Blood Culture - Preliminary Blood - Peripheral No growth in 3 days Anaerobic Blood Culture - Preliminary No growth in 3 days 09/15/18 10:44 Aerobic Blood Culture - Preliminary Blood - Peripheral No growth in 3 days Anaerobic Blood Culture - Preliminary No growth in 3 days 09/15/18 10:58 Aerobic Blood Culture - Preliminary Blood - Peripheral No growth in 3 days Anaerobic Blood Culture - Preliminary No growth in 3 days Impressions Chest X-Ray 09/16/18 11:26 CONCLUSION: Persistent consolidation and moderate-sized left pleural effusion. The right pleural effusion has resolved or has been removed without evidence of pneumothorax Chest X-Ray 09/18/18 00:00 CONCLUSION: Increased opacification in the left lung base which may represent increased infiltrate and/or effusion. Assessment and Plan - Plan Right upper extremity steal syndrome CXR was noted, Worsened L pleural effusion Will plan angiogram in am if clinically stable
--- NOTE | 2018-09-18 16:58 | P.PN ---
Subjective Interval history: ALERT NO SOB AT REST GOOD APPETITE Physical Exam Vital signs: Vital Signs 09/17/18 17:00 09/17/18 18:00 09/17/18 19:00 Temperature 98.3 F Pulse Rate 68 73 69 Respiratory Rate 16 Blood Pressure 129/59 L Pulse Oximetry 91 L 09/17/18 20:00 09/17/18 20:08 09/17/18 21:00 Temperature Pulse Rate 68 66 80 Respiratory Rate 16 Blood Pressure Pulse Oximetry 96 09/17/18 22:00 09/17/18 23:00 09/17/18 23:22 Temperature 98.2 F Pulse Rate 80 69 Respiratory Rate 16 Blood Pressure 135/63 Pulse Oximetry 90 L 97 09/17/18 23:39 09/18/18 00:00 09/18/18 01:00 Temperature Pulse Rate 68 66 Respiratory Rate Blood Pressure Pulse Oximetry 98 09/18/18 01:08 09/18/18 02:00 09/18/18 03:00 Temperature 97.7 F Pulse Rate 80 80 81 Respiratory Rate 20 16 Blood Pressure 151/67 H Pulse Oximetry 92 L 09/18/18 04:00 09/18/18 05:00 09/18/18 07:00 Temperature 97.5 F L Pulse Rate 75 70 80 Respiratory Rate 16 Blood Pressure 151/67 H Pulse Oximetry 98 09/18/18 08:00 09/18/18 09:00 09/18/18 10:00 Temperature Pulse Rate 80 78 76 Respiratory Rate Blood Pressure Pulse Oximetry 09/18/18 11:00 Temperature 97.7 F Pulse Rate 65 Respiratory Rate 18 Blood Pressure 151/67 H Pulse Oximetry 98 Intake & Output 09/17/18 09/18/18 09/18/18 18:59 06:59 18:59 Intake Total 480 / 480 Output Total 150 / 150 Balance -150 / -150 480 / 480 Weight 66.5 kg Intake: Oral 480 / 480 Output: Urine 150 / 150 Other: # Voids 1 Date of Last Bowel Movement 09/17/18 09/17/18 Narrative: GENERAL: Patient sitting up in bed. Appears comfortable. Alert. SKIN: Warm and dry. HEAD: Normocephalic. EYES: No scleral icterus. No injection or drainage. NECK: Supple, trachea midline. No JVD. CARDIOVASCULAR: Regular rate and rhythm without murmurs, gallops, or rubs. RESPIRATORY: Breath sounds equal bilaterally. No accessory muscle use. GASTROINTESTINAL: Abdomen soft, non-tender, nondistended. MUSCULOSKELETAL: No cyanosis, or edema. Small dry wound of the right thumb BACK: Nontender without obvious deformity. No CVA tenderness. Results - Labs CBC & Chem 7: 09/17/18 04:15 09/17/18 04:15 Laboratory Results - last 24 hr 09/17/18 09/17/18 09/18/18 17:13 19:55 08:15 POC Glucose 166 H 151 H 49 L* B-Natriuretic Peptide 09/18/18 09/18/18 09/18/18 08:29 08:51 11:07 POC Glucose 60 L 127 H B-Natriuretic Peptide 1499 H 09/18/18 12:49 POC Glucose 139 H B-Natriuretic Peptide Microbiology 09/15/18 10:55 Blood - Peripheral Aerobic Blood Culture - Preliminary No growth in 3 days 09/15/18 10:55 Blood - Peripheral Anaerobic Blood Culture - Preliminary No growth in 3 days 09/15/18 10:44 Blood - Peripheral Aerobic Blood Culture - Preliminary No growth in 3 days 09/15/18 10:44 Blood - Peripheral Anaerobic Blood Culture - Preliminary No growth in 3 days 09/15/18 10:58 Blood - Peripheral Aerobic Blood Culture - Preliminary No growth in 3 days 09/15/18 10:58 Blood - Peripheral Anaerobic Blood Culture - Preliminary No growth in 3 days - Imaging Impressions Chest X-Ray 09/18/18 00:00 CONCLUSION: Increased opacification in the left lung base which may represent increased infiltrate and/or effusion. Assessment and Plan - Plan RESPIRATORY FAILURE PNA PLEURAL EFFUSION PLAN O2 NEEDED PULM TOILET ANTIBX INCREASE ACTIVITY
[2018-09-18] MEDS: Gabapentin 100 MG Capsule PO SCH (21:47)
[2018-09-19 04:56] LABS: Baso # (Auto) 0.1 th/mm3 (0.0-0.2); Eos # (Auto) 0.3 th/mm3 (0.0-0.4); Eos % (Auto) 5.1 % (0.0-4.0); Hematocrit 34.8 % (35.0-46.0); Hemoglobin 11.4 gm/dL (11.6-15.3); Lymph # (Auto) 1.3 th/mm3 (1.0-4.8); Lymph % (Auto) 18.9 % (9.0-44.0); Mean Corpuscular HGB Conc 32.6 % (32.0-36.0); Mean Corpuscular Hemoglobin 30.5 pg (27.0-34.0); Mean Corpuscular Volume 93.6 fL (80.0-100.0); Mean Platelet Volume 7.9 fL (7.0-11.0); Mono # (Auto) 0.5 th/mm3 (0.0-0.9); Mono % (Auto) 7.3 % (0.0-8.0); Neut # (Auto) 4.5 th/mm3 (1.8-7.7); Neut % (Auto) 67.7 % (16.0-70.0); Platelet Count 258 th/mm3 (150-450); Red Blood Count 3.72 mil/mm3 (4.00-5.30); Red Cell Distribution Width 16.2 % (11.6-17.2); White Blood Count 6.7 th/mm3 (4.0-11.0)
[2018-09-19 05:24] LABS: Albumin 1.9 g/dL (3.4-5.0); Calcium 8.5 mg/dL (8.5-10.1); Carbon Dioxide 32.5 meq/L (21.0-32.0); Phosphorus 2.8 mg/dL (2.5-4.9); Potassium 4.5 meq/L (3.5-5.1)
[2018-09-19] MEDS: Carvedilol 6.25 MG Tablet PO SCH ×2 (08:52→20:58)
[2018-09-19] MEDS: Calcium Acetate 667 MG Capsule PO SCH ×3 (08:52→21:45)
[2018-09-19] MEDS: Azithromycin 250 MG Tablet PO SCH (08:52)
[2018-09-19] MEDS: Senna/Docusate Sodium 8.6/50 MG Tablet PO SCH ×2 (08:52→20:58)
[2018-09-19] MEDS: Insulin Detemir Inj 1,000 UNIT/10 ML Vial SQ SCH ×2 (08:53→21:46)
[2018-09-19] MEDS: Sodium Chloride 0.9% 2 ML Flush BID IV.FLUSH SCH ×2 (08:53→21:47)
[2018-09-19] MEDS: Insulin NovoLOG Aspart Correctional Sugar Inj SQ SCH ×4 (08:53→21:47)
--- NOTE | 2018-09-19 09:17 | P.PNVS ---
- Pre-operative Note Planned Procedure: Right Upper Extremity Angiogram Interval History: 67/F with a PMH of ESRD on HD (M/W/F) Pt S/p R UE brach-ax with PTFE (06/14/18) Pt admitted for SOB several days ago, and c/o R hand pain with a dry wound to her Right thumb (lateral aspect) first appearing 6w ago Labs: WBC 6.7 th/mm3 (4.0-11.0) 09/19/18 04:47 RBC 3.72 mil/mm3 (4.00-5.30) L 09/19/18 04:47 Hgb 11.4 gm/dL (11.6-15.3) L 09/19/18 04:47 Hct 34.8 % (35.0-46.0) L 09/19/18 04:47 MCV 93.6 fL (80.0-100.0) 09/19/18 04:47 MCH 30.5 pg (27.0-34.0) 09/19/18 04:47 MCHC 32.6 % (32.0-36.0) 09/19/18 04:47 RDW 16.2 % (11.6-17.2) 09/19/18 04:47 Plt Count 258 th/mm3 (150-450) 09/19/18 04:47 MPV 7.9 fL (7.0-11.0) 09/19/18 04:47 Sodium 134 meq/L (136-145) L 09/19/18 04:47 Potassium 4.5 meq/L (3.5-5.1) 09/19/18 04:47 Chloride 95 meq/L (98-107) L 09/19/18 04:47 Carbon Dioxide 32.5 meq/L (21.0-32.0) H 09/19/18 04:47 Anion Gap 7 meq/L (5-15) 09/19/18 04:47 BUN 41 mg/dL (7-18) H 09/19/18 04:47 Random Glucose 108 mg/dL (74-106) H 09/19/18 04:47 Calcium 8.5 mg/dL (8.5-10.1) 09/19/18 04:47 Imaging: ITS Impressions Extremity Arterial Study 09/15/18 00:00 CONCLUSION: 1. Diminished finger brachial indices at each digit most characteristic of steno-occlusive disease in the right upper extremity. Chest X-Ray 09/18/18 00:00 CONCLUSION: Increased opacification in the left lung base which may represent increased infiltrate and/or effusion. Post-operative Destination: [facility] Operative site marked: No Consent: Informed consent has been obtained from Brinda Maynard. I have explained the procedure in detail and discussed the risks, benefits, and potential complications. All questions have been answered.
--- NOTE | 2018-09-19 10:00 | P.PNIM ---
Subjective Interval history: This is a 67-year-old female with a PMH of HTN, COPD, Hyperlipidemia, O2 Dependent, h/o CAD, DM and ESRD on HD M/W/F who presented to the ER w/ SOB and non-productive cough x2 days. Recent admit 08/30-09/06/18 for similar complaints , found to have CHF Exacerbation w/ significant left pleural effusion s/p thoracentesis/chest tube, NSTEMI and suspected Sepsis. States she had been doing well after discharge until 2 days ago. Using home Nebulizers w/ minimal relief. Follows w/ Dr. Toro, last HD on Wednesday w/ no complications. Denies fever, chills, chest pain or sick contacts. On arrival, BP 124/78, HR 64, O2 sat 86% on RA, Afebrile. CBC unremarkable. Creatinine 3.0, previous E2.86. BS 771. BNP 2644. Troponin 0 0.03. CXR with chronic pleural effusions left greater than right, finding stable since prior exam. S/p DuoNeb in ER w/ some improvement. 10-15 Patient still reports shortness of breath. Essentially unchanged from yesterday. Awaiting to have dialysis today. 10-16 SHANON called on the patient this morning for blood glucose of 22. She was hard to arouse and diaphoretic. The patient was given 1 amp of D50 and [place] [facility] [place]. Blood glucose improved to 157. She is nauseous and retching. Otherwise is responding appropriately to questions. 10-17 Patient complains of worsening pain on her right thumb. She otherwise feels much better today. 10-18 Plastic surgery note reviewed . Patient reports she is feeling better overall. Breathing more comfortable. 10-19 Patient reports she had more pain on the right thumb earlier during dialysis. Otherwise she reports her breathing is improved. No chest pain. 10-20 Patient says she is feeling alright. Denies any chest pain. Reports shortness of breath overall improved. 10-21 Patient says she is feeling comfortable this morning. Denies any chest pain or shortness of breath. Denies nausea or vomiting. 10- to go FOR ANGIOGRAM TODAY AND HD LATER TODAY NEEDS PT AND OT NEEDS TO MOVE MORE DW RN AND PT AND CM head of data to eval and treat AM LABS Physical Exam Vital signs: Vital Signs 09/18/18 10:00 09/18/18 11:00 09/18/18 12:00 Temperature 97.7 F Pulse Rate 76 65 64 Respiratory Rate 18 Blood Pressure 151/67 H Pulse Oximetry 97 09/18/18 13:00 09/18/18 14:00 09/18/18 15:00 Temperature 98.0 F Pulse Rate 68 66 66 Respiratory Rate 18 Blood Pressure 148/66 H Pulse Oximetry 97 09/18/18 16:00 09/18/18 17:00 09/18/18 18:00 Temperature Pulse Rate 66 68 70 Respiratory Rate Blood Pressure Pulse Oximetry 09/18/18 19:00 09/18/18 20:00 09/18/18 21:00 Temperature 98.3 F Pulse Rate 72 72 74 Respiratory Rate 20 Blood Pressure 162/70 H Pulse Oximetry 90 L 09/18/18 21:44 09/18/18 22:00 09/18/18 23:00 Temperature 98.4 F Pulse Rate 72 75 Respiratory Rate 16 Blood Pressure 155/70 H Pulse Oximetry 95 92 L 09/19/18 00:00 09/19/18 01:00 09/19/18 02:00 Temperature Pulse Rate 74 72 72 Respiratory Rate Blood Pressure Pulse Oximetry 09/19/18 03:00 09/19/18 04:00 09/19/18 05:00 Temperature 98.4 F Pulse Rate 71 72 70 Respiratory Rate 16 Blood Pressure 169/72 H Pulse Oximetry 93 L 09/19/18 06:00 09/19/18 07:00 09/19/18 08:33 Temperature 98.7 F Pulse Rate 66 67 Respiratory Rate 17 Blood Pressure 174/75 H Pulse Oximetry 94 L 95 09/19/18 09:00 Temperature Pulse Rate 64 Respiratory Rate Blood Pressure Pulse Oximetry Intake & Output 09/18/18 09/19/18 09/19/18 18:59 06:59 18:59 Intake Total 960 / 960 480 / 480 Output Total 50 / 50 200 / 200 Balance 910 / 910 280 / 280 Weight 65.5 kg Intake: Oral 960 / 960 480 / 480 Output: Urine 50 / 50 200 / 200 Other: Date of Last Bowel Movement 09/17/18 09/17/18 Narrative: GENERAL: Patient sitting up in bed. Appears comfortable. Alert. SKIN: Warm and dry. Sacral decub HEAD: Normocephalic. EYES: No scleral icterus. No injection or drainage. NECK: Supple, trachea midline. No JVD. CARDIOVASCULAR: Regular rate and rhythm without murmurs, gallops, or rubs. RESPIRATORY: Breath sounds equal bilaterally. No accessory muscle use. GASTROINTESTINAL: Abdomen soft, non-tender, nondistended. MUSCULOSKELETAL: No cyanosis, or edema. Small dry wound of the right thumb BACK: Nontender without obvious deformity. No CVA tenderness. Insight and judgment good mood and behavior is somewhat appropriate Results - Labs CBC & Chem 7: 09/19/18 04:47 09/19/18 04:47 Laboratory Results - last 24 hr 09/18/18 09/18/18 09/18/18 11:07 12:49 17:23 WBC RBC Hgb Hct MCV MCH MCHC RDW Plt Count MPV Neut % (Auto) Lymph % (Auto) [place] % (Auto) Eos % (Auto) Baso % (Auto) Neut # (Auto) Lymph # (Auto) [place] # (Auto) Eos # (Auto) Baso # (Auto) WBC Differential Differential Comment Sodium Potassium Chloride Carbon Dioxide Anion Gap BUN Creatinine Estimated GFR POC Glucose 139 H 140 H Random Glucose Calcium Phosphorus Magnesium B-Natriuretic Peptide 1499 H Albumin 09/18/18 09/19/18 09/19/18 20:16 04:47 04:47 WBC 6.7 RBC 3.72 L Hgb 11.4 L Hct 34.8 L MCV 93.6 MCH 30.5 MCHC 32.6 RDW 16.2 Plt Count 258 MPV 7.9 Neut % (Auto) 67.7 Lymph % (Auto) 18.9 [place] % (Auto) 7.3 Eos % (Auto) 5.1 H Baso % (Auto) 1.0 Neut # (Auto) 4.5 Lymph # (Auto) 1.3 [place] # (Auto) 0.5 Eos # (Auto) 0.3 Baso # (Auto) 0.1 WBC Differential . Differential Comment Auto diff final Sodium 134 L Potassium 4.5 Chloride 95 L Carbon Dioxide 32.5 H Anion Gap 7 BUN 41 H Creatinine 3.77 H Estimated GFR 12 L POC Glucose 177 H Random Glucose 108 H Calcium 8.5 Phosphorus 2.8 Magnesium 2.0 B-Natriuretic Peptide Albumin 1.9 L 09/19/18 09/19/18 07:25 09:21 WBC RBC Hgb Hct MCV MCH MCHC RDW Plt Count MPV Neut % (Auto) Lymph % (Auto) [place] % (Auto) Eos % (Auto) Baso % (Auto) Neut # (Auto) Lymph # (Auto) [place] # (Auto) Eos # (Auto) Baso # (Auto) WBC Differential Differential Comment Sodium Potassium Chloride Carbon Dioxide Anion Gap BUN Creatinine Estimated GFR POC Glucose 100 114 H Random Glucose Calcium Phosphorus Magnesium B-Natriuretic Peptide Albumin Microbiology 09/15/18 10:55 Blood - Peripheral Aerobic Blood Culture - Preliminary No growth in 3 days 09/15/18 10:55 Blood - Peripheral Anaerobic Blood Culture - Preliminary No growth in 3 days 09/15/18 10:44 Blood - Peripheral Aerobic Blood Culture - Preliminary No growth in 3 days 09/15/18 10:44 Blood - Peripheral Anaerobic Blood Culture - Preliminary No growth in 3 days 09/15/18 10:58 Blood - Peripheral Aerobic Blood Culture - Preliminary No growth in 3 days 09/15/18 10:58 Blood - Peripheral Anaerobic Blood Culture - Preliminary No growth in 3 days - Imaging Impressions Chest X-Ray 09/18/18 00:00 CONCLUSION: Increased opacification in the left lung base which may represent increased infiltrate and/or effusion. Assessment and Plan - Assessment (1) CHF (congestive heart failure) Code(s): I50.9 - Heart failure, unspecified Status: Acute (2) Pleural effusion Code(s): J90 - Pleural effusion, not elsewhere classified Status: Acute (3) Hypoxia Code(s): R09.02 - Hypoxemia Status: Acute (4) ESRD on dialysis Code(s): N18.6 - End stage renal disease; Z99.2 - Dependence on renal dialysis Status: Acute (5) DM (diabetes mellitus) Code(s): E11.9 - Type 2 diabetes mellitus without complications Status: Acute - Plan 67-year-old female on hemodialysis admitted with acute diastolic CHF. Patient is also a brittle diabetic who presented with blood sugar of 700. She had one episode of acute hypoglycemia. [place] [facility] [place] now [place] to [place]. CHF: Acute on Chronic. Diastolic. Echo 08/09/18 w/ EF 50-55%, BNP 2644, CXR w / chronic effusions, images reviewed. Continue home Bumex, monitor I/O, appreciate nephrology input. Dialysis as scheduled. Acute symptomatic hypoglycemia/DM: Brittle diabetic, presented with BS in the 700's. Glucose in the 20s on 09/13/18. Received Levemir the night before. Treated with D50 and IVF. - Continue SSI with accuchecks. - Diabetic diet. - Blood glucose spiked in the 300's again. Resume Levemir at a lower dose 10 unit in AM. - Blood glucose better today. Continue to monitor. = Still glucose in the 400s today. Will switch to Levemir 5 units twice daily, and increase sliding scale to moderate. = 09/18. Patient with a glucose of 49 this morning. Have adjusted insulin regimen. Right upper extremity steal syndrome/H/O AV graft: -Appreciate vascular surgery following. Duplex ultrasound ordered. Vascular surgery planning for revision. = 09/18. Plan for angiogram on 09/19 as per vascular surgery. Appreciate assistance. Angiogram today September 19 CAD, abnormalities on tele with concerns for Atrial flutter: No cardiovascular complaints. Unsure if she has a history of Afib. - Patient evaluated by Cardiology, Dr. Reddy. tele findings believed to be artifacts - Continue Coreg, Effient, Statin. Monitor on Tele Pleural Effusion: recent admit w/ large left effusion s/p thoracentesis/chest tube, CXR w/ pleural effusions, left greater than right, however stable. COPD -Pulmonology following - Continue current treatment. If Effusion stable. = 09/18. Increased oxygen requirement to 6 L nasal cannula. Will check chest x -ray to monitor effusion. Pulmonology following. Appreciate assistance. Hypoxemia: O2 sat 86% on RA upon arrival, O2 dependent at night per patient, currently O2 sat 94% on 4L NC, monitor closely. DuoNeb prn. -Respiratory status seems to be stable today. = 09/18. Increasing ostial requirement. Will check BNP, repeat chest x-ray. ESRD on HD: M/W/F -Appreciate nephrology following. DVT Prophylaxis: SCD/Teds We will consult synthetic department supervisor regarding decub ulcers and feet Code Status: Full code Discussed Condition With: RN and patient Discharge Planning: Angiogram of right upper extremity scheduled for today
--- NOTE | 2018-09-19 10:12 | P.PNCA ---
Subjective Interval history: Patient denies any CP, pressure, palpitations, dizziness or edema. Patient complained of coughing all night and unable to clear her throat. Medications and Allergies Allergies Allergy/AdvReac Type Severity Reaction Status Date / Time propoxyphene Allergy Intermediate RASH Verified 07/18/18 07:41 Home Medications Medication Instructions Recorded Confirmed Type albuterol sulfate [Ventolin HFA] 2 puff INHALATION Q6H PRN 06/03/18 09/11/18 History aspirin 81 mg PO DAILY 06/03/18 09/11/18 History budesonide-formoterol [Symbicort] 2 puff INHALATION BID 06/03/18 09/11/18 History atorvastatin 80 mg PO HS 08/30/18 09/11/18 History insulin detemir U-100 [Levemir 20 unit SUBCUT BID 08/30/18 09/11/18 History FlexTouch U-100 Insuln] mupirocin 1 applic TOPICAL BID 08/30/18 09/11/18 History prasugrel 10 mg PO DAILY 08/30/18 09/11/18 History vit B comp no.5-nkuqj-R-biotin 1 tab PO DAILY 08/30/18 09/11/18 History [Nephro-[facility]ita Rx] Active Medications: Active Medications Acetaminophen (Tylenol) 650 mg PO Q4H PRN PRN Reason: Temp > 100.4 OR PAIN 1-5 Last Admin: 09/11/18 21:37 Dose: 650 mg Acetaminophen (Tylenol) 650 mg PO UNSCH PRN PRN Reason: SEE LABEL COMMENTS Al Hydroxide/Mg Hydroxide (Milk Of Leonidas Luke) 30 ml PO Q12H PRN PRN Reason: Mild Constipation Albuterol (Duoneb Neb (Prn)) 1 ampul NEB Q4HR NEB PRN PRN Reason: SOB/WHEEZING Last Admin: 09/19/18 01:48 Dose: 1 ampul Aspirin (Ecotrin) 81 mg PO DAILY [facility] Last Admin: 09/19/18 08:52 Dose: 81 mg Atorvastatin Calcium (Lipitor) 80 mg PO HS [facility] Last Admin: 09/18/18 21:47 Dose: 80 mg Azithromycin (Zithromax) 500 mg PO DAILY [facility] Last Admin: 09/19/18 08:52 Dose: 500 mg Bisacodyl (Dulcolax Supp) 10 mg RECTAL DAILY PRN PRN Reason: SEVERE CONSITIPATION Last Admin: 09/17/18 14:23 Dose: 10 mg Budesonide/Formoterol Fumarate (Symbicort 160/4.5 Mcg Inh) 2 puff INH BID [facility] Last Admin: 09/18/18 22:02 Dose: 2 puff Bumetanide (Bumex) 1 mg PO BID [facility] Last Admin: 09/19/18 08:52 Dose: 1 mg Calcium Acetate (Phoslo) 667 mg PO TID [facility] Last Admin: 09/19/18 08:52 Dose: 667 mg Carvedilol (Coreg) 6.25 mg PO BID [facility] Last Admin: 09/19/18 08:52 Dose: 6.25 mg Clonidine HCl (Catapres) 0.1 mg PO UNSCH PRN PRN Reason: SEE LABEL COMMENTS Dextrose (D50w Vial) 50 ml IV.PUSH UNSCH PRN PRN Reason: PER HYPOGLYCEMIA PROTOCOL Last Admin: 09/13/18 09:00 Dose: 50 ml Diphenhydramine HCl (Benadryl) 25 mg PO UNSCH PRN PRN Reason: SEE LABEL COMMENTS Epoetin Low (Epogen Inj) 6,000 unit IV.PUSH UNSCH PRN PRN Reason: SEE LABEL COMMENTS Last Admin: 09/16/18 11:27 Dose: 6,000 unit Gabapentin (Neurontin) 100 mg PO [facility] Last Admin: 09/18/18 21:47 Dose: 100 mg Gelatin (Gelfoam 12 Mm/7 Mm Topical) 1 foam TOPICAL PRN PRN PRN Reason: help stop bleeding from site Last Admin: 09/16/18 11:27 Dose: 1 foam Gentamicin Sulfate (Gentamicin Inj) 20 mg OTHER WITH DIALYSIS PRN PRN Reason: Dwell Gentamycin Lock Glucagon (Glucagon Inj) 1 mg OTHER PRN PRN PRN Reason: for Hypoglycemia Protocol Heparin Sodium (Porcine) (Heparin Inj) 8,000 units OTHER WITH DIALYSIS PRN PRN Reason: for machine prime Heparin Sodium (Porcine) (Heparin Inj) 1,000 units OTHER WITH DIALYSIS PRN PRN Reason: Dwell Heparin to Fill Catheter Hydralazine HCl (Apresoline) 100 mg PO TID [facility] Last Admin: 09/19/18 08:52 Dose: 100 mg Albumin Human (Flexbumin 25% Inj) 100 mls @ 60 mls/hr IV.SIG WITH DIALYSIS PRN PRN Reason: hypotension / volume replace Sodium Chloride (Ns Inj) 1,000 mls @ 0 mls/hr OTHER .Q0M PRN PRN Reason: for prime and rinse back Sodium Chloride (Ns Inj) 1,000 mls @ 200 mls/hr OTHER .Q5H PRN PRN Reason: for dialyzer flush PRN Sodium Chloride (Ns Inj) 1,000 mls @ 0 mls/hr IV.CONT .Q0M PRN PRN Reason: hypotension / volume replace Insulin Aspart (Novolog Insulin Correctional Sugar Inj) 0 unit SQ ACHS [facility]; Protocol Last Admin: 09/19/18 08:53 Dose: Not Given Insulin Detemir (Levemir Inj) 5 unit SQ BID [facility] Last Admin: 09/19/18 08:53 Dose: Not Given Lactulose (Lactulose Liq) 30 ml PO DAILY PRN PRN Reason: SEVERE CONSITIPATION Mannitol (Mannitol Inj) 12.5 gm IV.PUSH UNSCH PRN PRN Reason: hypotension / volume replace Nifedipine (Procardia Xl) 60 mg PO DAILY [facility] Last Admin: 09/19/18 08:52 Dose: 60 mg Nitroglycerin (Nitrostat Sl) 0.4 mg SL Q5M PRN PRN Reason: CHEST PAIN Ondansetron HCl (Zofran Inj) 4 mg IV.PUSH Q6H PRN PRN Reason: NAUSEA OR VOMITING Last Admin: 09/13/18 14:28 Dose: 4 mg Ondansetron HCl (Zofran Inj) 4 mg IV.PUSH UNSCH PRN PRN Reason: NAUSEA OR VOMITING Oxycodone/Acetaminophen (Percocet 5/325 Mg) 1 tab PO Q4H PRN PRN Reason: PAIN SCALE 6 TO 10 Last Admin: 09/19/18 09:00 Dose: 1 tab Prasugrel (Effient) 10 mg PO DAILY [facility] Last Admin: 09/19/18 08:52 Dose: 10 mg Senna/Docusate Sodium (Jocelyn-Colace) 1 tab PO BID [facility] Last Admin: 09/19/18 08:52 Dose: 1 tab Sennosides (Senokot) 17.2 mg PO Q12H PRN PRN Reason: Moderate Constipation Sodium Chloride (Ns Flush) 5 ml IV.FLUSH PRN PRN PRN Reason: flush each lumen during HD Sodium Chloride (Ns Flush) 2 ml IV.FLUSH BID [facility] Last Admin: 09/19/18 08:53 Dose: 2 ml Sodium Chloride (Ns Flush) 2 ml IV.FLUSH PRN PRN PRN Reason: FLUSH AFTER USING IV ACCESS Physical Exam Vital signs: Vital Signs 09/18/18 11:00 09/18/18 12:00 09/18/18 13:00 Temperature 97.7 F Pulse Rate 65 64 68 Respiratory Rate 18 Blood Pressure 151/67 H Pulse Oximetry 97 09/18/18 14:00 09/18/18 15:00 09/18/18 16:00 Temperature 98.0 F Pulse Rate 66 66 66 Respiratory Rate 18 Blood Pressure 148/66 H Pulse Oximetry 97 09/18/18 17:00 09/18/18 18:00 09/18/18 19:00 Temperature 98.3 F Pulse Rate 68 70 72 Respiratory Rate 20 Blood Pressure 162/70 H Pulse Oximetry 90 L 09/18/18 20:00 09/18/18 21:00 09/18/18 21:44 Temperature Pulse Rate 72 74 Respiratory Rate Blood Pressure Pulse Oximetry 95 09/18/18 22:00 09/18/18 23:00 09/19/18 00:00 Temperature 98.4 F Pulse Rate 72 75 74 Respiratory Rate 16 Blood Pressure 155/70 H Pulse Oximetry 92 L 09/19/18 01:00 09/19/18 02:00 09/19/18 03:00 Temperature 98.4 F Pulse Rate 72 72 71 Respiratory Rate 16 Blood Pressure 169/72 H Pulse Oximetry 93 L 09/19/18 04:00 09/19/18 05:00 09/19/18 06:00 Temperature Pulse Rate 72 70 66 Respiratory Rate Blood Pressure Pulse Oximetry 09/19/18 07:00 09/19/18 08:33 09/19/18 09:00 Temperature 98.7 F Pulse Rate 67 64 Respiratory Rate 17 Blood Pressure 174/75 H Pulse Oximetry 94 L 95 Intake & Output 09/18/18 09/19/18 09/19/18 18:59 06:59 18:59 Intake Total 960 / 960 480 / 480 Output Total 50 / 50 200 / 200 Balance 910 / 910 280 / 280 Weight 65.5 kg Intake: Oral 960 / 960 480 / 480 Output: Urine 50 / 50 200 / 200 Other: Date of Last Bowel Movement 09/17/18 09/17/18 - Constitutional no acute distress - Routine HEENT Exam Head: Present: normocephalic Eye: Present: PERRL ENT: Present: mucous membranes moist - Routine Neck Exam Present: full ROM - Routine Respiratory Exam Present: rhonchi Comments: Coarse rhonchi throughout bilateral. - Routine Cardiovascular Exam Present: S1, S2. Absent: murmur, gallop, rubs - Routine Abdominal Exam Present: normoactive bowel sounds - Routine Extremities Exam Present: full ROM, pulses intact, normal capillary refill. Absent: cyanosis, clubbing, edema - Routine Skin Exam Present: intact. Absent: cyanosis, erythema - Routine Neurological Exam Present: oriented X3 - Detailed Neurological Exam: Coma Scale Eye Opening: Spontaneous Verbal Response: Oriented Motor Response: Obey commands Zeny Coma Scale Total: 15 - Routine Psychiatric Exam Present: normal affect Results 09/19/18 04:47 09/19/18 04:47 Cardiac Enzymes 09/18/18 Range/Units 11:07 B-Natriuretic Peptide 1499 H (0-100) pg/mL Coagulation 09/18/18 Range/Units 11:07 B-Natriuretic Peptide 1499 H (0-100) pg/mL CBC 09/19/18 Range/Units 04:47 WBC 6.7 (4.0-11.0) th/mm3 RBC 3.72 L (4.00-5.30) mil/mm3 Hgb 11.4 L (11.6-15.3) gm/dL Hct 34.8 L (35.0-46.0) % Plt Count 258 (150-450) th/mm3 Neut # (Auto) 4.5 (1.8-7.7) th/mm3 Lymph # (Auto) 1.3 (1.0-4.8) th/mm3 Cherry # (Auto) 0.5 (0.0-0.9) th/mm3 Eos # (Auto) 0.3 (0.0-0.4) th/mm3 Baso # (Auto) 0.1 (0.0-0.2) th/mm3 Comprehensive Metabolic Panel 09/19/18 Range/Units 04:47 Sodium 134 L (136-145) meq/L Potassium 4.5 (3.5-5.1) meq/L Chloride 95 L (98-107) meq/L Carbon Dioxide 32.5 H (21.0-32.0) meq/L BUN 41 H (7-18) mg/dL Creatinine 3.77 H (0.50-1.00) mg/dL Calcium 8.5 (8.5-10.1) mg/dL Albumin 1.9 L (3.4-5.0) g/dL Intake and Output 09/18/18 09/19/18 09/19/18 22:59 06:59 14:59 Intake Total 960 / 960 480 / 480 Output Total 50 / 50 200 / 200 Balance 910 / 910 280 / 280 Intake: Oral 960 / 960 480 / 480 Output: Urine 50 / 50 200 / 200 Other: Date of Last Bowel Movement 09/17/18 09/17/18 Weight 65.5 kg - Imaging and Cardiology Imaging: Impressions Chest X-Ray 09/18/18 00:00 CONCLUSION: Increased opacification in the left lung base which may represent increased infiltrate and/or effusion. Assessment and Plan - Assessment (1) DKA (diabetic ketoacidoses) Code(s): E13.10 - Other specified diabetes mellitus with ketoacidosis without coma Status: Acute (2) Acute UTI Code(s): N39.0 - Urinary tract infection, site not specified Status: Acute (3) ESRD (end stage renal disease) on dialysis Code(s): N18.6 - End stage renal disease; Z99.2 - Dependence on renal dialysis Status: Acute (4) Diabetes Code(s): E11.9 - Type 2 diabetes mellitus without complications Status: Acute (5) Hypertension Code(s): I10 - Essential (primary) hypertension Status: Acute (6) Pain and swelling of right upper extremity Code(s): M79.601 - Pain in right arm; M79.89 - Other specified soft tissue disorders Status: Acute (7) Fluid overload Code(s): E87.70 - Fluid overload, unspecified Status: Acute - Plan No new cardiac issues. We will continue her current treatment plan. Patient scheduled for dialysis today. Pulmonary evaluation in progress. We will continue to follow the patient during her hospitalization and see her back for follow-up in our office post discharge. Patient was seen and evaluated by Dr. Reddy who participated in care, management and decision-making. - Attending Attestation Patient seen and examined. I reviewed and agree with the evaluation and plan as presented. Dialysis today. Increase activity, PT. (1) DKA (diabetic ketoacidoses) Qualifiers: Diabetes mellitus type: type 2 Diabetes mellitus complication detail: without coma Qualified Code(s): E11.10 - Type 2 diabetes mellitus with ketoacidosis without coma (4) Diabetes Qualifiers: Diabetes mellitus longterm insulin use: with longterm use (7) Fluid overload Qualifiers: Hypervolemia type: unspecified Qualified Code(s): E87.70 - Fluid overload, unspecified
--- NOTE | 2018-09-19 10:18 | P.PNNP ---
Subjective Interval history: Reports some shortness of breath last night but improved now. Plan for right upper extremity angiogram. <Jessica Clemons - Last Filed: 09/19/18 10:08> Physical Exam Vital signs: Vital Signs 09/18/18 11:00 09/18/18 12:00 09/18/18 13:00 Temperature 97.7 F Pulse Rate 65 64 68 Respiratory Rate 18 Blood Pressure 151/67 H Pulse Oximetry 97 09/18/18 14:00 09/18/18 15:00 09/18/18 16:00 Temperature 98.0 F Pulse Rate 66 66 66 Respiratory Rate 18 Blood Pressure 148/66 H Pulse Oximetry 97 09/18/18 17:00 09/18/18 18:00 09/18/18 19:00 Temperature 98.3 F Pulse Rate 68 70 72 Respiratory Rate 20 Blood Pressure 162/70 H Pulse Oximetry 90 L 09/18/18 20:00 09/18/18 21:00 09/18/18 21:44 Temperature Pulse Rate 72 74 Respiratory Rate Blood Pressure Pulse Oximetry 95 09/18/18 22:00 09/18/18 23:00 09/19/18 00:00 Temperature 98.4 F Pulse Rate 72 75 74 Respiratory Rate 16 Blood Pressure 155/70 H Pulse Oximetry 92 L 09/19/18 01:00 09/19/18 02:00 09/19/18 03:00 Temperature 98.4 F Pulse Rate 72 72 71 Respiratory Rate 16 Blood Pressure 169/72 H Pulse Oximetry 93 L 09/19/18 04:00 09/19/18 05:00 09/19/18 06:00 Temperature Pulse Rate 72 70 66 Respiratory Rate Blood Pressure Pulse Oximetry 09/19/18 07:00 09/19/18 08:33 09/19/18 09:00 Temperature 98.7 F Pulse Rate 67 64 Respiratory Rate 17 Blood Pressure 174/75 H Pulse Oximetry 94 L 95 Intake & Output 09/18/18 09/19/18 09/19/18 18:59 06:59 18:59 Intake Total 960 / 960 480 / 480 Output Total 50 / 50 200 / 200 Balance 910 / 910 280 / 280 Weight 65.5 kg Intake: Oral 960 / 960 480 / 480 Output: Urine 50 / 50 200 / 200 Other: Date of Last Bowel Movement 09/17/18 09/17/18 Narrative: GENERAL: Alert and oriented. Feels fatigue SKIN: Warm and dry. Sacral decub NECK: Supple, trachea midline. No JVD. CARDIOVASCULAR: Regular rate and rhythm without murmurs, gallops, or rubs. RESPIRATORY: Breath sounds equal bilaterally. No accessory muscle use. GASTROINTESTINAL: Abdomen soft, non-tender, nondistended. MUSCULOSKELETAL: No cyanosis, or edema. Small dry wound of the right thumb BACK: Nontender without obvious deformity. No CVA tenderness. <Jessica Clemons - Last Filed: 09/19/18 10:08> Vital signs: Vital Signs 09/19/18 19:00 09/19/18 20:00 09/19/18 21:00 Temperature 98 F Pulse Rate 68 80 81 Respiratory Rate 18 Blood Pressure 148/70 H Pulse Oximetry 99 09/19/18 21:49 09/19/18 22:00 09/19/18 23:00 Temperature 98.4 F Pulse Rate 82 67 Respiratory Rate 16 Blood Pressure 149/65 H Pulse Oximetry 96 99 09/20/18 00:00 09/20/18 01:00 09/20/18 02:00 Temperature Pulse Rate 65 65 65 Respiratory Rate Blood Pressure Pulse Oximetry 09/20/18 02:34 09/20/18 03:00 09/20/18 04:00 Temperature 98.6 F Pulse Rate 144 H 68 64 Respiratory Rate 16 Blood Pressure 155/68 H Pulse Oximetry 98 09/20/18 05:00 09/20/18 05:54 09/20/18 07:00 Temperature 97.8 F Pulse Rate 65 65 63 Respiratory Rate 14 Blood Pressure 158/68 H Pulse Oximetry 94 L 09/20/18 08:00 09/20/18 09:00 09/20/18 09:36 Temperature Pulse Rate 63 63 Respiratory Rate 16 Blood Pressure Pulse Oximetry 94 L 09/20/18 10:00 09/20/18 11:00 09/20/18 12:00 Temperature 97.8 F Pulse Rate 62 64 61 Respiratory Rate 16 Blood Pressure 139/63 Pulse Oximetry 93 L 09/20/18 13:00 09/20/18 14:00 09/20/18 15:00 Temperature 97.5 F L Pulse Rate 62 58 L 58 L Respiratory Rate 15 Blood Pressure 117/58 L Pulse Oximetry 93 L 09/20/18 16:00 09/20/18 17:16 Temperature Pulse Rate 60 Respiratory Rate Blood Pressure Pulse Oximetry 94 L Intake & Output 09/19/18 09/20/18 09/20/18 18:59 06:59 18:59 Intake Total 240 / 240 Output Total 3000 / 3000 Balance -2760 / -2760 Weight 64.5 kg Intake: Oral 240 / 240 Output: Urine 0 / 0 Hemodialysis Amount 3000 / 3000 <Des Toro - Last Filed: 09/20/18 18:22> Assessment and Plan - Assessment (1) ESRD (end stage renal disease) on dialysis Code(s): N18.6 - End stage renal disease; Z99.2 - Dependence on renal dialysis Status: Acute Plan: ESRD on hemodialysis on Wednesday, Wednesday and Wednesday. AVG right upper arm Plan Continue Renal, high protein diet Continue PhosLo Avoid IVF administration Epogen with dialysis Apparent steal syndrome at right thumb - plan for angiogram with Vascular Surgery today with Hemodialysis after. (2) Fluid overload Code(s): E87.70 - Fluid overload, unspecified Status: Acute Plan: Stable, continue UF with HD (3) Hypertension Code(s): I10 - Essential (primary) hypertension Status: Acute Plan: Elevated On Coreg, hydralazine, and nifedipine. Will increase nifedipine <Jessica Clemons - Last Filed: 09/19/18 10:08> - Assessment (1) ESRD (end stage renal disease) on dialysis Code(s): N18.6 - End stage renal disease; Z99.2 - Dependence on renal dialysis Status: Acute Plan: Patient seen and examined, agree with above. For angiogram for steal syndrome. Continue HD MWF. Further plan as vascular surgery. (2) Fluid overload Code(s): E87.70 - Fluid overload, unspecified Status: Acute Qualifiers: Hypervolemia type: unspecified Qualified Code(s): E87.70 - Fluid overload, unspecified (3) Hypertension Code(s): I10 - Essential (primary) hypertension Status: Acute <Des Toro - Last Filed: 09/20/18 18:22>
[2018-09-19] MEDS ORDERED: Heparin 10,000 UNITS/10 ML Vial (for IV use) ONE (10:42)
[2018-09-19] MEDS ORDERED: Heparin/NS PF Inj 1,000 ML ONE (10:42)
--- NOTE | 2018-09-19 12:15 | P.OP ---
Preoperative Diagnosis: Right upper extremity steal syndrome Postoperative Diagnosis: Right upper extremity steal syndrome Date of procedure: 09/19/18 Procedure: #1 ultrasound-guided access of the right common femoral artery #2 aortic arch angiogram #3 right upper extremity second order angiogram #4 radiological supervision and interpretation Surgeon: Nura Hernandez MD Operation and Findings: Findings Patent innominate artery, right subclavian artery, right brachial artery, AV fistula. There is no evidence of inflow disease. Heavily calcified ulnar artery, radial artery. Procedure The patient was taken to the operating room and laid supine on the OR table. Patient was prepped and draped in the standard sterile fashion. Timeout was called with all members in the OR in agreement. 1% lidocaine was injected in the right groin. Using ultrasound and axis were accessed the right common femoral artery. 035 wire was introduced into the abdominal aorta. 5 Amharic sheath was placed in the right common femoral artery. Aortic arch angiogram and the second order right upper extremity angiogram were performed. At this point all wire catheters and sheath removed hemostasis achieved by applying direct pressure. Patient tolerated the procedure well and was taken to recovery unit in stable condition. Conclusion Patient with a right upper extremity steal syndrome. There is no evidence of inflow disease. Patient will need revision of her AV fistula.
[2018-09-19] MEDS: Budesonide-Formoterol 160/4.5 MCG 6 GM Inhaler INH SCH ×2 (13:16→21:00)
--- NOTE | 2018-09-19 16:32 | P.PNWCN ---
Wound Care Nurse Consult Description: Consult for Wound Management of Buttocks and sacral area and bilateral heels per Dr Handley. Communicated with: Patient RN Recommendation: Keep bilateral heels, lateral, and medial, first and 5th met heads free from pressure at all times. Apply Cavilon skin barrier film BID and PRN and leave open to air. Encourage and remind patient to reposition from left to right sides Q2H and PRN for comfort. Apply Calazime skin protectant paste BID and PRN to bilateral buttocks, sacrum, and gluteal cleft for moisture. PLEASE DO NOT USE COTTON UNDERPAD/PULL PAD WITH MARTA MATTRESSES Additional information: Patient seen on for bilateral foot wounds and evaluation of sacrum, bilateral buttocks, and gluteal cleft. Wound/Pressure Injury - Patient Status Premedicated for Pain Prior to Dressing Change: No - Wound Left Heel Wound Staging: Stage I Wound Assessment: Ongoing Wound Type: Pressure Injury Length (cm): 0.7 (cm) Width (cm): 0.7 (cm) Depth (cm): 0 (cm) Wound Bed Appearance: Red (non blanching erythema) Wound Bed Appearance: Stage 1 non blanching erythema noted appears to have been previous DTI now resolving. Surrounding Tissue Appearance: Bright Red (blanching) Drainage Amount: None Dressing Status: Open to Air Topical: Cavilon skin barrier film Left Medial Foot Wound Staging: DTI Wound Assessment: Ongoing Wound Type: Pressure Injury Length (cm): 1.7 (cm) Width (cm): 1 (cm) Depth (cm): 0 (cm) Wound Bed Appearance: purple non blanching discoloration Drainage Amount: None Dressing Status: Open to Air Topical: Cavilon skin barrier film Left Lateral Foot Wound Staging: DTI Wound Assessment: Ongoing Wound Type: Pressure Injury Length (cm): 1.7 (cm) Width (cm): 1.1 (cm) Depth (cm): 0 (cm) Wound Bed Appearance: Purple non blanching discoloration Drainage Amount: None Dressing Status: Open to Air Topical: Cavilon skin barrier film Right Heel Wound Staging: Stage I Wound Assessment: Ongoing Wound Type: Pressure Injury Length (cm): 1.1 (cm) Width (cm): 1.1 (cm) Depth (cm): 0 (cm) Wound Bed Appearance: Red (non blanching erythema) Drainage Amount: None Dressing Status: Open to Air Topical: Cavilon skin barrier film Right Medial Foot Wound Staging: DTI Wound Assessment: Ongoing Wound Type: Pressure Injury Length (cm): 2.2 (cm) Width (cm): 2 (cm) Depth (cm): 0 (cm) Wound Bed Appearance: purple non blanching discoloration Drainage Amount: None Dressing Status: Open to Air Topical: Cavilon skin barrier film Right Lateral Foot Wound Staging: DTI Wound Assessment: Ongoing Wound Type: Pressure Injury Length (cm): 1.6 (cm) Width (cm): 1.1 (cm) Depth (cm): 0 (cm) Wound Bed Appearance: purple non blanching discoloration Drainage Amount: None Dressing Status: Open to Air Topical: Cavilon skin barrier film Left Buttock Wound Assessment: Ongoing Wound Bed Appearance: Peeling denuded skin. Moisture etiology. Nothing open noted upon assessment. Surrounding Tissue Appearance: Blanched/Dull (blanching erythema noted to bilateral buttocks, sacrum, gluteal cleft) Dressing Status: Open to Air Topical: Calazime skin protectant paste
--- NOTE | 2018-09-19 17:26 | P.PNPL ---
Subjective Interval history: 67 YOWF with CHF,COPD, ch pl eff, DM Admitted with SOB Had increased sob last night Breathing better Has Cough at night, small amount of sp No Fever Had HD Physical Exam Vital signs: Vital Signs 09/18/18 18:00 09/18/18 19:00 09/18/18 20:00 Temperature 98.3 F Pulse Rate 70 72 72 Respiratory Rate 20 Blood Pressure 162/70 H Pulse Oximetry 90 L 09/18/18 21:00 09/18/18 21:44 09/18/18 22:00 Temperature Pulse Rate 74 72 Respiratory Rate Blood Pressure Pulse Oximetry 95 09/18/18 23:00 09/19/18 00:00 09/19/18 01:00 Temperature 98.4 F Pulse Rate 75 74 72 Respiratory Rate 16 Blood Pressure 155/70 H Pulse Oximetry 92 L 09/19/18 02:00 09/19/18 03:00 09/19/18 04:00 Temperature 98.4 F Pulse Rate 72 71 72 Respiratory Rate 16 Blood Pressure 169/72 H Pulse Oximetry 93 L 09/19/18 05:00 09/19/18 06:00 09/19/18 07:00 Temperature 98.7 F Pulse Rate 70 66 67 Respiratory Rate 17 Blood Pressure 174/75 H Pulse Oximetry 94 L 09/19/18 08:33 09/19/18 09:00 09/19/18 13:00 Temperature Pulse Rate 64 63 Respiratory Rate Blood Pressure Pulse Oximetry 95 09/19/18 14:00 09/19/18 15:00 09/19/18 16:00 Temperature 98 F Pulse Rate 65 68 62 Respiratory Rate 18 Blood Pressure 148/70 H Pulse Oximetry 99 Intake & Output 09/18/18 09/19/18 09/19/18 18:59 06:59 18:59 Intake Total 960 / 960 480 / 480 Output Total 50 / 50 200 / 200 Balance 910 / 910 280 / 280 Weight 65.5 kg Intake: Oral 960 / 960 480 / 480 Output: Urine 50 / 50 200 / 200 Other: Date of Last Bowel Movement 09/17/18 09/17/18 GENERAL: Elderly WF NAD SKIN: Warm and dry. HEAD: Normocephalic. EYES: No scleral icterus. No injection or drainage. NECK: Supple, trachea midline. No JVD or lymphadenopathy. CARDIOVASCULAR: Regular rate and rhythm without murmurs, gallops, or rubs. RESPIRATORY: Breath sounds equal bilaterally. No accessory muscle use. GASTROINTESTINAL: Abdomen soft, non-tender, nondistended. MUSCULOSKELETAL: No cyanosis, or edema. BACK: Nontender without obvious deformity. No CVA tenderness. Assessment and Plan - Plan IMPRESSION: 1. Respiratory failure. 2. Hypoxia. 3. Morbid obesity. 4. Likely sleep apnea. 5. Osteomyelitis. 6. Pneumonia. 7. Pulmonary edema. 8. Renal insufficiency. PLAN: Supplement [address] effusion, stable Diurease with Bumex Hemodialysis per renal. Zithro 500 mg po daily Robitussin DM 10 cc q 6 hrs Use Acapella
[2018-09-19] MEDS: Gabapentin 100 MG Capsule PO SCH (20:57)
[2018-09-19] MEDS: guaiFENesin/Dextromethorphan 200 MG/20 MG 10 ML UDC PO SCH ×2 (21:46→23:25)
[2018-09-20] MEDS: guaiFENesin/Dextromethorphan 200 MG/20 MG 10 ML UDC PO SCH ×3 (05:18→18:37)
[2018-09-20 05:41] LABS: Baso # (Auto) 0.1 th/mm3 (0.0-0.2); Baso % (Auto) 1.3 % (0.0-2.0); Eos # (Auto) 0.3 th/mm3 (0.0-0.4); Eos % (Auto) 4.6 % (0.0-4.0); Hematocrit 34.6 % (35.0-46.0); Hemoglobin 11.5 gm/dL (11.6-15.3); Lymph % (Auto) 18.9 % (9.0-44.0); Mean Corpuscular HGB Conc 33.3 % (32.0-36.0); Mean Corpuscular Hemoglobin 30.7 pg (27.0-34.0); Mean Corpuscular Volume 92.4 fL (80.0-100.0); Mean Platelet Volume 8.3 fL (7.0-11.0); Mono # (Auto) 0.5 th/mm3 (0.0-0.9); Mono % (Auto) 8.8 % (0.0-8.0); Neut # (Auto) 3.7 th/mm3 (1.8-7.7); Neut % (Auto) 66.4 % (16.0-70.0); Platelet Count 257 th/mm3 (150-450); Red Blood Count 3.74 mil/mm3 (4.00-5.30); Red Cell Distribution Width 16.1 % (11.6-17.2); White Blood Count 5.5 th/mm3 (4.0-11.0)
[2018-09-20 06:20] LABS: Alanine Aminotransferase 13 U/L (10-53); Albumin 1.9 g/dL (3.4-5.0); Alkaline Phosphatase 129 U/L (45-117); Anion Gap 5 meq/L (5-15); Aspartate Aminotransferase 16 U/L (15-37); Blood Urea Nitrogen 29 mg/dL (7-18); Calcium 8.4 mg/dL (8.5-10.1); Carbon Dioxide 33.2 meq/L (21.0-32.0); Chloride 98 meq/L (98-107); Free T4 (Free Thyroxine) 0.94 ng/dL (0.76-1.46); Glomerular Filtration Rate 16 mL/min (>89); Glucose,Random 130 mg/dL (74-106); Magnesium 2.1 mg/dL (1.5-2.5); Phosphorus 2.6 mg/dL (2.5-4.9); Potassium 4.1 meq/L (3.5-5.1); Sodium 136 meq/L (136-145); Total Protein 6.4 g/dL (6.4-8.2)
[2018-09-20] MEDS: Calcium Acetate 667 MG Capsule PO SCH ×3 (08:34→18:38)
[2018-09-20] MEDS: Senna/Docusate Sodium 8.6/50 MG Tablet PO SCH ×2 (08:35→21:41)
[2018-09-20] MEDS: Carvedilol 6.25 MG Tablet PO SCH ×2 (08:35→21:40)
[2018-09-20] MEDS: Azithromycin 250 MG Tablet PO SCH (08:36)
[2018-09-20] MEDS: Insulin Detemir Inj 1,000 UNIT/10 ML Vial SQ SCH ×2 (08:37→21:40)
[2018-09-20] MEDS: Sodium Chloride 0.9% 2 ML Flush BID IV.FLUSH SCH (08:43)
[2018-09-20] MEDS: Budesonide-Formoterol 160/4.5 MCG 6 GM Inhaler INH SCH (08:44)
[2018-09-20] MEDS: Insulin NovoLOG Aspart Correctional Sugar Inj SQ SCH ×4 (09:36→21:41)
--- NOTE | 2018-09-20 10:10 | P.PNNP ---
Subjective Interval history: Shortness of breath has improved. Hemodialysis yesterday tolerated well with removal of 3 liters of fluid. Continues to have right hand pain. <Jessica Clemons - Last Filed: 09/20/18 12:39> Physical Exam Vital signs: Vital Signs 09/19/18 13:00 09/19/18 14:00 09/19/18 15:00 Temperature 98 F Pulse Rate 63 65 68 Respiratory Rate 18 Blood Pressure 148/70 H Pulse Oximetry 99 09/19/18 16:00 09/19/18 17:00 09/19/18 18:00 Temperature Pulse Rate 62 62 62 Respiratory Rate Blood Pressure Pulse Oximetry 09/19/18 19:00 09/19/18 20:00 09/19/18 21:00 Temperature 98 F Pulse Rate 68 80 81 Respiratory Rate 18 Blood Pressure 148/70 H Pulse Oximetry 99 09/19/18 21:49 09/19/18 22:00 09/19/18 23:00 Temperature 98.4 F Pulse Rate 82 67 Respiratory Rate 16 Blood Pressure 149/65 H Pulse Oximetry 96 99 09/20/18 00:00 09/20/18 01:00 09/20/18 02:00 Temperature Pulse Rate 65 65 65 Respiratory Rate Blood Pressure Pulse Oximetry 09/20/18 02:34 09/20/18 03:00 09/20/18 04:00 Temperature 98.6 F Pulse Rate 144 H 68 64 Respiratory Rate 16 Blood Pressure 155/68 H Pulse Oximetry 98 09/20/18 05:00 09/20/18 05:54 09/20/18 07:00 Temperature 97.8 F Pulse Rate 65 65 63 Respiratory Rate 14 Blood Pressure 158/68 H Pulse Oximetry 94 L 09/20/18 08:00 09/20/18 09:00 09/20/18 09:36 Temperature Pulse Rate 63 63 Respiratory Rate 16 Blood Pressure Pulse Oximetry 94 L 09/20/18 10:00 Temperature Pulse Rate 62 Respiratory Rate Blood Pressure Pulse Oximetry Intake & Output 09/19/18 09/20/18 09/20/18 18:59 06:59 18:59 Intake Total 240 / 240 Output Total 3000 / 3000 Balance -2760 / -2760 Weight 64.5 kg Intake: Oral 240 / 240 Output: Urine 0 / 0 Hemodialysis Amount 3000 / 3000 Narrative: GENERAL: Alert and oriented. SKIN: Warm and dry. NECK: Supple, trachea midline. No JVD. CARDIOVASCULAR: Regular rate and rhythm without murmurs, gallops, or rubs. RESPIRATORY: Breath sounds diminished equal bilaterally. No accessory muscle use. GASTROINTESTINAL: Abdomen soft, non-tender, nondistended. MUSCULOSKELETAL: No cyanosis, or edema. Small dry wound of the right thumb BACK: Nontender without obvious deformity. No CVA tenderness. <Jessica Clemons - Last Filed: 09/20/18 12:39> Vital signs: Vital Signs 09/20/18 20:00 09/20/18 21:00 09/20/18 22:00 Temperature Pulse Rate 72 75 80 Respiratory Rate Blood Pressure Pulse Oximetry 94 L 09/20/18 22:25 09/20/18 23:00 09/21/18 00:00 Temperature 98.6 F Pulse Rate 80 79 65 Respiratory Rate 16 Blood Pressure 123/57 L Pulse Oximetry 94 L 09/21/18 01:00 09/21/18 01:55 09/21/18 03:00 Temperature 98.6 F Pulse Rate 65 64 65 Respiratory Rate 16 Blood Pressure 149/65 H Pulse Oximetry 95 09/21/18 04:00 09/21/18 05:00 09/21/18 05:54 Temperature Pulse Rate 64 65 66 Respiratory Rate Blood Pressure Pulse Oximetry 09/21/18 07:00 09/21/18 08:00 09/21/18 09:00 Temperature 97.7 F Pulse Rate 63 62 60 Respiratory Rate 14 Blood Pressure 160/67 H Pulse Oximetry 98 09/21/18 10:19 09/21/18 13:00 Temperature Pulse Rate 65 Respiratory Rate Blood Pressure Pulse Oximetry 95 Intake & Output 09/21/18 09/21/18 09/22/18 06:59 18:59 06:59 Intake Total 250 / 250 Output Total 30 / 30 1650 / 1650 Balance -30 / -30 -1400 / -1400 Weight 64.4 kg Intake: IV 50 / 50 Ancef 2 GM Premix Inj 2 gm In 50 / 50 50 ml @ 0 mls/hr IV.SIG .STK- MED ONE Rx#:[id number] Anesthesia Amount 200 / 200 Output: Urine 30 / 30 Hemodialysis Amount 1500 / 1500 Estimated Blood Loss 150 / 150 Other: Date of Last Bowel Movement 09/20/18 # Incontinent Bowel Movements 2 <Des Toro - Last Filed: 09/21/18 19:36> Assessment and Plan - Assessment (1) ESRD (end stage renal disease) on dialysis Code(s): N18.6 - End stage renal disease; Z99.2 - Dependence on renal dialysis Status: Acute Plan: ESRD on hemodialysis on Wednesday, Wednesday and Wednesday. AVG right upper arm Plan High protein diet Continue PhosLo Avoid IVF administration Epogen with dialysis Hemodialysis yesterday tolerated well with removal of 3 liters of fluid. Patient with a right upper extremity steal syndrome. There is no evidence of inflow disease. Patient will need revision of her AV Graft Hemodialysis tomorrow (2) Fluid overload Code(s): E87.70 - Fluid overload, unspecified Status: Acute Qualifiers: Hypervolemia type: unspecified Qualified Code(s): E87.70 - Fluid overload, unspecified Plan: Stable, continue UF with HD (3) Hypertension Code(s): I10 - Essential (primary) hypertension Status: Acute Plan: On Coreg, hydralazine, and nifedipine. Will monitor <Jessica Clemons - Last Filed: 09/20/18 12:39> - Assessment (1) ESRD (end stage renal disease) on dialysis Code(s): N18.6 - End stage renal disease; Z99.2 - Dependence on renal dialysis Status: Acute Plan: Patient seen and examine, agree with above. For revision of AVF for steal syndrome. HD to continue MWF. (2) Fluid overload Code(s): E87.70 - Fluid overload, unspecified Status: Acute Qualifiers: Hypervolemia type: unspecified Qualified Code(s): E87.70 - Fluid overload, unspecified (3) Hypertension Code(s): I10 - Essential (primary) hypertension Status: Acute <Des Toro - Last Filed: 09/21/18 19:36>
--- NOTE | 2018-09-20 10:12 | P.PNIM ---
Subjective Interval history: This is a 67-year-old female with a PMH of HTN, COPD, Hyperlipidemia, O2 Dependent, h/o CAD, DM and ESRD on HD M/W/F who presented to the ER w/ SOB and non-productive cough x2 days. Recent admit 08/30-09/06/18 for similar complaints , found to have CHF Exacerbation w/ significant left pleural effusion s/p thoracentesis/chest tube, NSTEMI and suspected Sepsis. States she had been doing well after discharge until 2 days ago. Using home Nebulizers w/ minimal relief. Follows w/ Dr. Toro, last HD on Wednesday w/ no complications. Denies fever, chills, chest pain or sick contacts. On arrival, BP 124/78, HR 64, O2 sat 86% on RA, Afebrile. CBC unremarkable. Creatinine 3.0, previous E2.86. BS 771. BNP 2644. Troponin 0 0.03. CXR with chronic pleural effusions left greater than right, finding stable since prior exam. S/p DuoNeb in ER w/ some improvement. 10-15 Patient still reports shortness of breath. Essentially unchanged from yesterday. Awaiting to have dialysis today. 10-16 SHANON called on the patient this morning for blood glucose of 22. She was hard to arouse and diaphoretic. The patient was given 1 amp of D50 and immediately transferred [place] [facility] evaluated the patient. Blood glucose improved to 157. She is nauseous and retching. Otherwise is responding appropriately to questions. 10-17 Patient complains of worsening pain on her right thumb. She otherwise feels much better today. 10-18 Plastic surgery note reviewed . Patient reports she is feeling better overall. Breathing more comfortable. 10-19 Patient reports she had more pain on the right thumb earlier during dialysis. Otherwise she reports her breathing is improved. No chest pain. 10-20 Patient says she is feeling alright. Denies any chest pain. Reports shortness of breath overall improved. 10-21 Patient says she is feeling comfortable this morning. Denies any chest pain or shortness of breath. Denies nausea or vomiting. 10-22 to go FOR ANGIOGRAM TODAY AND HD LATER TODAY NEEDS PT AND OT NEEDS TO MOVE MORE DW RN AND PT AND CM garnett room worker to eval and treat AM LABS 10- HAD ANGIOGRAM OF RIGHT UE NEEDS SHUNT REVISION NEEDS PT AND OT DW RN AND PT AND CM Physical Exam Vital signs: Vital Signs 09/19/18 13:00 09/19/18 14:00 09/19/18 15:00 Temperature 98 F Pulse Rate 63 65 68 Respiratory Rate 18 Blood Pressure 148/70 H Pulse Oximetry 99 09/19/18 16:00 09/19/18 17:00 09/19/18 18:00 Temperature Pulse Rate 62 62 62 Respiratory Rate Blood Pressure Pulse Oximetry 09/19/18 19:00 09/19/18 20:00 09/19/18 21:00 Temperature 98 F Pulse Rate 68 80 81 Respiratory Rate 18 Blood Pressure 148/70 H Pulse Oximetry 99 09/19/18 21:49 09/19/18 22:00 09/19/18 23:00 Temperature 98.4 F Pulse Rate 82 67 Respiratory Rate 16 Blood Pressure 149/65 H Pulse Oximetry 96 99 09/20/18 00:00 09/20/18 01:00 09/20/18 02:00 Temperature Pulse Rate 65 65 65 Respiratory Rate Blood Pressure Pulse Oximetry 09/20/18 02:34 09/20/18 03:00 09/20/18 04:00 Temperature 98.6 F Pulse Rate 144 H 68 64 Respiratory Rate 16 Blood Pressure 155/68 H Pulse Oximetry 98 09/20/18 05:00 09/20/18 05:54 09/20/18 07:00 Temperature 97.8 F Pulse Rate 65 65 63 Respiratory Rate 14 Blood Pressure 158/68 H Pulse Oximetry 94 L 09/20/18 08:00 09/20/18 09:00 09/20/18 09:36 Temperature Pulse Rate 63 63 Respiratory Rate 16 Blood Pressure Pulse Oximetry 94 L 09/20/18 10:00 Temperature Pulse Rate 62 Respiratory Rate Blood Pressure Pulse Oximetry Intake & Output 09/19/18 09/20/18 09/20/18 18:59 06:59 18:59 Intake Total 240 / 240 Output Total 3000 / 3000 Balance -2760 / -2760 Weight 64.5 kg Intake: Oral 240 / 240 Output: Urine 0 / 0 Hemodialysis Amount 3000 / 3000 Narrative: GENERAL: Alert and oriented. Feels fatigue SKIN: Warm and dry. Sacral decub NECK: Supple, trachea midline. No JVD. CARDIOVASCULAR: Regular rate and rhythm without murmurs, gallops, or rubs. RESPIRATORY: Breath sounds equal bilaterally. No accessory muscle use. GASTROINTESTINAL: Abdomen soft, non-tender, nondistended. MUSCULOSKELETAL: No cyanosis, or edema. Small dry wound of the right thumb RUE [employer]RI[employer] AND BRUIT IN GRAFT BACK: Nontender without obvious deformity. No CVA tenderness. Results - Labs CBC & Chem 7: 09/20/18 05:13 09/20/18 05:13 Laboratory Results - last 24 hr 09/19/18 09/19/18 09/20/18 17:43 20:42 03:38 WBC RBC Hgb Hct MCV MCH MCHC RDW Plt Count MPV Neut % (Auto) Lymph % (Auto) [place] % (Auto) Eos % (Auto) Baso % (Auto) Neut # (Auto) Lymph # (Auto) [place] # (Auto) Eos # (Auto) Baso # (Auto) WBC Differential Differential Comment Sodium Potassium Chloride Carbon Dioxide Anion Gap BUN Creatinine Estimated GFR POC Glucose 213 H 248 H 150 H Random Glucose Calcium Phosphorus Magnesium Total Bilirubin AST ALT Alkaline Phosphatase Total Protein Albumin Free T4 09/20/18 09/20/18 09/20/18 05:13 05:13 07:57 WBC 5.5 RBC 3.74 L Hgb 11.5 L Hct 34.6 L MCV 92.4 MCH 30.7 MCHC 33.3 RDW 16.1 Plt Count 257 MPV 8.3 Neut % (Auto) 66.4 Lymph % (Auto) 18.9 [place] % (Auto) 8.8 H Eos % (Auto) 4.6 H Baso % (Auto) 1.3 Neut # (Auto) 3.7 Lymph # (Auto) 1.0 [place] # (Auto) 0.5 Eos # (Auto) 0.3 Baso # (Auto) 0.1 WBC Differential . Differential Comment Auto diff final Sodium 136 Potassium 4.1 Chloride 98 Carbon Dioxide 33.2 H Anion Gap 5 BUN 29 H Creatinine 2.93 H Estimated GFR 16 L POC Glucose 90 Random Glucose 130 H Calcium 8.4 L Phosphorus 2.6 Magnesium 2.1 Total Bilirubin 0.2 AST 16 ALT 13 Alkaline Phosphatase 129 H Total Protein 6.4 Albumin 1.9 L Free T4 0.94 Microbiology 09/15/18 10:55 Blood - Peripheral Aerobic Blood Culture - Preliminary No growth in 4 days 09/15/18 10:55 Blood - Peripheral Anaerobic Blood Culture - Preliminary No growth in 4 days 09/15/18 10:44 Blood - Peripheral Aerobic Blood Culture - Preliminary No growth in 4 days 09/15/18 10:44 Blood - Peripheral Anaerobic Blood Culture - Preliminary No growth in 4 days 09/15/18 10:58 Blood - Peripheral Aerobic Blood Culture - Preliminary No growth in 4 days 09/15/18 10:58 Blood - Peripheral Anaerobic Blood Culture - Preliminary No growth in 4 days - Imaging ITS Impressions Extremity Arterial Study 09/15/18 00:00 CONCLUSION: 1. Diminished finger brachial indices at each digit most characteristic of steno-occlusive disease in the right upper extremity. Chest X-Ray 09/18/18 00:00 CONCLUSION: Increased opacification in the left lung base which may represent increased infiltrate and/or effusion. - Procedures RIGHT UE ANGIOGRAM AND HD Assessment and Plan - Assessment (1) CHF (congestive heart failure) Code(s): I50.9 - Heart failure, unspecified Status: Acute (2) Pleural effusion Code(s): J90 - Pleural effusion, not elsewhere classified Status: Acute (3) Hypoxia Code(s): R09.02 - Hypoxemia Status: Acute (4) ESRD on dialysis Code(s): N18.6 - End stage renal disease; Z99.2 - Dependence on renal dialysis Status: Acute (5) DM (diabetes mellitus) Code(s): E11.9 - Type 2 diabetes mellitus without complications Status: Acute - Plan 67-year-old female on hemodialysis admitted with acute diastolic CHF. Patient is also a brittle diabetic who presented with blood sugar of 700. She had one episode of acute hypoglycemia. She was transferred [place] [facility] [place] is now returned to the PCU. CHF: Acute on Chronic. Diastolic. Echo 08/09/18 w/ EF 50-55%, BNP 2644, CXR w / chronic effusions, images reviewed. Continue home Bumex, monitor I/O, appreciate nephrology input. Dialysis as scheduled. Acute symptomatic hypoglycemia/DM: Brittle diabetic, presented with BS in the 700's. Glucose in the 20s on 09/13/18. Received Levemir the night before. Treated with D50 and IVF. - Continue SSI with accuchecks. - Diabetic diet. - Blood glucose spiked in the 300's again. Resume Levemir at a lower dose 10 unit in AM. - Blood glucose better today. Continue to monitor. = Still glucose in the 400s today. Will switch to Levemir 5 units twice daily, and increase sliding scale to moderate. = 09/18. Patient with a glucose of 49 this morning. Have adjusted insulin regimen. Right upper extremity steal syndrome/H/O AV graft: -Appreciate vascular surgery following. Duplex ultrasound ordered. Vascular surgery planning for revision. = 09/18. Plan for angiogram on 09/19 as per vascular surgery. Appreciate assistance. Angiogram today September 19- NEEDS REVISION OF GRAFT CAD, abnormalities on tele with concerns for Atrial flutter: No cardiovascular complaints. Unsure if she has a history of Afib. - Patient evaluated by Cardiology, Dr. Reddy. tele findings believed to be artifacts - Continue Coreg, Effient, Statin. Monitor on Tele Pleural Effusion: recent admit w/ large left effusion s/p thoracentesis/chest tube, CXR w/ pleural effusions, left greater than right, however stable. COPD -Pulmonology following - Continue current treatment. If Effusion stable. = 09/18. Increased oxygen requirement to 6 L nasal cannula. Will check chest x -ray to monitor effusion. Pulmonology following. Appreciate assistance. Hypoxemia: O2 sat 86% on RA upon arrival, O2 dependent at night per patient, currently O2 sat 94% on 4L NC, monitor closely. DuoNeb prn. -Respiratory status seems to be stable today. = 09/18. Increasing ostial requirement. Will check BNP, repeat chest x-ray. ESRD on HD: M/W/F -Appreciate nephrology following. DVT Prophylaxis: SCD/Teds We will consult ada accommodation consultant regarding decub ulcers and feet WANTS DIET CHANGED AROUND Code Status: FULL CODE Discussed Condition With: RN AND PT AND CM Discharge Planning: PENDING CLEARANCE BY VASCULAR SURGERY AND NEPHROLOGY
--- NOTE | 2018-09-20 11:17 | P.PNPL ---
Subjective Interval history: 67 YOWF with CHF,COPD, ch pl eff, DM Admitted with SOB Had increased sob last night Breathing better Cough much better Breathing easier Physical Exam Vital signs: Vital Signs 09/19/18 13:00 09/19/18 14:00 09/19/18 15:00 Temperature 98 F Pulse Rate 63 65 68 Respiratory Rate 18 Blood Pressure 148/70 H Pulse Oximetry 99 09/19/18 16:00 09/19/18 17:00 09/19/18 18:00 Temperature Pulse Rate 62 62 62 Respiratory Rate Blood Pressure Pulse Oximetry 09/19/18 19:00 09/19/18 20:00 09/19/18 21:00 Temperature 98 F Pulse Rate 68 80 81 Respiratory Rate 18 Blood Pressure 148/70 H Pulse Oximetry 99 09/19/18 21:49 09/19/18 22:00 09/19/18 23:00 Temperature 98.4 F Pulse Rate 82 67 Respiratory Rate 16 Blood Pressure 149/65 H Pulse Oximetry 96 99 09/20/18 00:00 09/20/18 01:00 09/20/18 02:00 Temperature Pulse Rate 65 65 65 Respiratory Rate Blood Pressure Pulse Oximetry 09/20/18 02:34 09/20/18 03:00 09/20/18 04:00 Temperature 98.6 F Pulse Rate 144 H 68 64 Respiratory Rate 16 Blood Pressure 155/68 H Pulse Oximetry 98 09/20/18 05:00 09/20/18 05:54 09/20/18 07:00 Temperature 97.8 F Pulse Rate 65 65 63 Respiratory Rate 14 Blood Pressure 158/68 H Pulse Oximetry 94 L 09/20/18 08:00 09/20/18 09:00 09/20/18 09:36 Temperature Pulse Rate 63 63 Respiratory Rate 16 Blood Pressure Pulse Oximetry 94 L 09/20/18 10:00 Temperature Pulse Rate 62 Respiratory Rate Blood Pressure Pulse Oximetry Intake & Output 09/19/18 09/20/18 09/20/18 18:59 06:59 18:59 Intake Total 240 / 240 Output Total 3000 / 3000 Balance -2760 / -2760 Weight 64.5 kg Intake: Oral 240 / 240 Output: Urine 0 / 0 Hemodialysis Amount 3000 / 3000 GENERAL: Elderly WF,NAD SKIN: Warm and dry. HEAD: Normocephalic. EYES: No scleral icterus. No injection or drainage. NECK: Supple, trachea midline. No JVD or lymphadenopathy. CARDIOVASCULAR: Regular rate and rhythm without murmurs, gallops, or rubs. RESPIRATORY: Breath sounds equal bilaterally. No accessory muscle use. harsh BS GASTROINTESTINAL: Abdomen soft, non-tender, nondistended. MUSCULOSKELETAL: No cyanosis, or edema. BACK: Nontender without obvious deformity. No CVA tenderness. Assessment and Plan - Plan IMPRESSION: 1. Respiratory failure. 2. Hypoxia. 3. Morbid obesity. 4. Likely sleep apnea. 5. Osteomyelitis. 6. Pneumonia. 7. Pulmonary edema. 8. Renal insufficiency. PLAN: Supplement [address] effusion, stable Diurease with Bumex Zithro 500 mg po daily Robitussin DM 10 cc q 6 hrs Use Acapella
--- NOTE | 2018-09-20 13:10 | CATHPROC ---
[facility] HIS Report Study Information Study Number Admission Scheduled Start Study Start [id number] Sep 11 2018 4:45AM 09/19/2018 Sep 19 2018 10:39AM [place] Service Cath Endovascular Study Admit Source Facility Department Emergency department [facility] - Payroll Human Resources Assistant Physician and Clinical Staff Initial Nura Decker Ecdis N Navigation Operator Venita Fishman,HARSH Recorder Ayala Carmona,RT(R) Scrub Spencer Kaminski,RT(R) Procedures Performed Procedure Location (Site) Vessel Name Aortic Arch Wire insertion Fem Art (right) Femoral Art Equipment Time Traffic Counter Description Size Mfg Part Number Used/Scraped [id number] 10:49 [employer] WIRE, SUPERCORE 190CM Used *[id number] INTRODUCER SET, 11:11 [employer] FR 5 [id number] *[id number] Used MICROPUNCTURE STIFF [id number] *[id number] WIRE, HYDROSTEER 260CM [id number] 11:20 DAIG[employer] 260CM Used ANGLED GLIDE *[id number] 10:50 [place] BLANKET,WARM AIR CCL * Used *[id number] 10:50 [place] PACK, CCL CUSTOM * Used *[id number] 10:50 [employer] PACER PEN, SKIN DUAL W/ RULER * Used *[id number] PROBE COVER, STERILE [id number] 11:10 Proteus Agility * Used ULTRASOUND W/ GEL *[id number] 10:50 NAMIC MANIFOLD, 4 PORT * Used *[id number] TUBING, 72" PRESSURE [id number] 10:49 NAMIC Used INJECTION (EARTH SCIENCE PROFESSOR) [id number] 10:50 [place] OMNIPAQUE, 300 MG, 150ML 150ML [id number] Used 10:53 [employer] OMNIPAQUE, 300 MG, 150ML 150ML [id number] Used 10:53 [place] OMNIPAQUE, 300 MG, 50ML 50ML [id number] Used [id number] 10:49 TERUMO MEDICAL SHEATH, FR5 TERUMO (10CM) FR 5 Used *[id number] 11:20 TERUM[employer] MEDICAL/SAMMY CATHETER, FR5 ANGLED 100CM FR 5 [id number] *[id number] Used Equipment Model, Serial, Lot Number and Expiration Data Description Model Number Serial Number Lot Number Expiration Date WIRE, HYDROSTEER 260CM [id number] 10-28-2020 ANGLED GLIDE History: Current Medications Medication Dosage/Unit Route Frequency Last Date/Time Taken Statins (any) Beta Homar PROCARDIA ASA EFFIENT HYDRALAZINE History: Allergies Allergy Reaction *MDRO Multi-Drug Resistant Organism Darvon RASH propoxyphene RASH History: Risk Factors Family History of Hypertension Dyslipidemia Previous MO Previous Heart Failure Premature CAD Yes Yes No Yes Yes Prior Valve Prior PCI Prior PCIDate Prior CABG Surgery No Yes 09/16/2015 No Cerebrovascular Peripheral Artery Chronic Lung On Dialysis Diabetes Diabetes Therapy Disease Disease Disease Yes No No Yes Yes Insulin History: Stress Tests Stress or Imaging Studies Performed No History: Other Current Smoker Method Quit Packs a Day Years Used Pack Years No Cigarettes 16 Years Ago 1 35 35 Labs Hgb (g/dl) Hct (%) WBC (l/cumm) Platelets (thousands) 11.60-17.00 35.00-51.00 4.00-11.00 150.00-450.00 11.4 34.8 6.7 258 Glucose (mg/dl) BUN (mg/dl) Creatinine (mg/dl) BUN:Creatinine (1:x) 74.00-106.00 7.00-18.00 0.50-1.30 10.00-20.00 108 41 3.7 11.1 Na (meq/l) K (meq/l) 136.00-145.00 3.50-5.10 134 4.5 Medication Medication Total Dose (Bolus/Oral) Medication Total Dosage/Unit 1% XYLOCAINE 20 mL Medications (Bolus/Oral) Medication Time Given Dosage/Unit Administered By Reason 09/19/2018 11:13:18 1% XYLOCAINE 20 mL Nura Hernandez AM 20 mL 1% XYLOCAINE given in lab by Nura Hernandez in Right Groin via Subcutaneous. Medication (Drip) Medication Time Given Dosage/Unit Concentration/Unit Diluent (ml) Solution 09/19/2018 10:45:38 IV Solutions 50 mL (IV) NaCl .9 AM IV Solutions given in lab by Venita Fishman RN in Left Antecubital via Peripheral IV. Pump/Drip Chris w using NaCl .9. Chronological Log Time Study Chronological Log 10:38:01 MD arrived. 10:38:17 Patient arrived via Bed. 10:45:26 Patient Name, D.O.B, / Armband Verified By R.N. 10:45:27 Consent signed by the physician and the patient and verified by the Payroll Human Resources Assistant staff. 10:45:28 Pre-op and post- op instructions given; patient acknowledges understanding of instruction s. 10:45:32 Patient has been NPO for More than 6Hrs. 10:45:33 Patient Warmer Placed on the Table. 10:45:35 Brigitte Prominences Protected 10:45:37 A # 20 IV was noted in the Antecubital (left). Grade = 0 10:45:38 IV Solutions given in lab by Venita Fishman RN in Left Antecubital via Peripheral IV. P ump/Drip Flow using NaCl .9. 10:45:39 History and physical on the chart or being dictated. Vitals capture started with the following parameters, Patient=Adult, Interval=5 min, Initial Fwywwnlp=257 mmHg, 10:45:48 Deflation Rate=5 mmHg, Cuff placed on Left Arm 10:46:34 HR=63 bpm, WPWH=393/58 mmhg, SpO2=95.0 %, Resp=15 B/min 10:51:31 HR=63 bpm, DMGA=737/56 mmhg, SpO2=95.0 %, Resp=16 B/min 10:51:40 Reference ECG taken 10:56:32 HR=63 bpm, QVHE=054/61 mmhg, SpO2=96.0 %, Resp=15 B/min 11:01:31 HR=63 bpm, DUSX=582/66 mmhg, SpO2=97.0 %, Resp=16 B/min 11:02:10 Bilateral groins prepped with 2% chlorhexidine, and draped after a 3 minute waiting time. 11:05:47 Pressure channel 2 zeroed. 11:06:32 HR=63 bpm, FXUU=939/62 mmhg, SpO2=97.0 %, Resp=15 B/min 11:11:33 HR=63 bpm, FLHS=409/65 mmhg, SpO2=97.0 %, Resp=15 B/min Time Out. Correct patient, correct procedure, correct physician, labs, allergies, and equipme nt verified with cath lab manager 11:12:29 team present. Fire risk assesment completed (see hard stop sheet for coding). Time Out Co ncurred by MD and individual staff in procedure. 11:13:15 Case Start 11:13:18 20 mL 1% XYLOCAINE given in lab by Nura Hernandez in Right Groin via Subcutaneous. 11:14:22 Access site was Right Femoral Artery via ultrasound. 11:14:48 A WIRE, SUPERCORE 190CM was inserted via Fem Art (right). 11:16:32 HR=63 bpm, VZTC=908/64 mmhg, SpO2=96.0 %, Resp=14 B/min A PIGTAIL ANG. INFINITI CATHETER FR 5 was advanced over a wire. OMNIPAQUE, 300 MG, 150ML 150M L was used 11:16:36 for injections. 11:16:49 Wire removed Through a PIGTAIL ANG. INFINITI CATHETER FR 5, The Aortic Arch was injected at 20 ml/sec for a total of 10 cc's of 11:18:16 contrast. 11:18:59 Catheter was removed A CATHETER, FR5 ANGLED 100CM FR 5 was advanced over a wire. OMNIPAQUE, 300 MG, 150ML 150ML was used for 11:19:17 injections. 11:20:59 A WIRE, HYDROSTEER 260CM ANGLED GLIDE 260CM was inserted via Fem Art (right). 11:21:35 HR=63 bpm, ZHYJ=534/61 mmhg, SpO2=96.0 %, Resp=15 B/min Through a CATHETER, FR5 ANGLED 100CM FR 5, The Aortic Arch was injected at 1 ml/sec for a total of 10 cc's of 11:24:59 contrast. 11:26:34 HR=63 bpm, NYFB=785/64 mmhg, SpO2=97.0 %, Resp=15 B/min 11:29:32 [place] Wire removed 11:30:40 manual injection of subclavian 11:31:33 HR=62 bpm, ZMDV=366/64 mmhg, SpO2=97.0 %, Resp=14 B/min 11:33:30 manual injection 11:34:08 manual injection 11:36:08 Catheter was removed 11:36:20 Case End (Physician broke scrub) 11:36:32 HR=64 bpm, RLAQ=089/65 mmhg, SpO2=97.0 %, Resp=15 B/min 11:36:40 Sheath removed; pressure applied to access site. 11:41:35 HR=63 bpm, BLDN=515/58 mmhg, SpO2=96.0 %, Resp=15 B/min, Pain=0, Norris=10, Mcdermott=2 [facility] called. Spoke to HARSH Cobian. Pt will return to 461 and then go to dialysis later today per bedside RN and 11:44:03 Dialysis. 11:46:34 HR=63 bpm, INOP=876/63 mmhg, SpO2=97.0 %, Resp=16 B/min 11:50:10 Sterile dressing applied to site 11:50:11 No case complications noted. 11:50:12 Cine recording checked. 11:51:33 HR=62 bpm, SATO=362/66 mmhg, SpO2=97.0 %, Resp=15 B/min 11:56:34 HR=61 bpm, XTTS=131/64 mmhg, SpO2=97.0 %, Resp=14 B/min 12:01:36 HR=60 bpm, PXPM=702/62 mmhg, SpO2=97.0 %, Resp=14 B/min 12:06:33 HR=62 bpm, RPUX=028/62 mmhg, SpO2=97.0 %, Resp=14 B/min 12:07:23 Vitals capture stopped. End Study - Maximum Contrast Load Max Contrast Load (mL) 88.5 End Study - Patient Disposition Complications Not selected
--- NOTE | 2018-09-20 14:10 | P.PNCA ---
Subjective Interval history: Patient denies any chest pain, pressure, palpitations or dizziness. Patient does state that her edema is getting better and that she is feeling much better. Medications and Allergies Allergies Allergy/AdvReac Type Severity Reaction Status Date / Time propoxyphene Allergy Intermediate RASH Verified 07/18/18 07:41 Home Medications Medication Instructions Recorded Confirmed Type albuterol sulfate [Ventolin HFA] 2 puff INHALATION Q6H PRN 06/03/18 09/11/18 History aspirin 81 mg PO DAILY 06/03/18 09/11/18 History budesonide-formoterol [Symbicort] 2 puff INHALATION BID 06/03/18 09/11/18 History atorvastatin 80 mg PO HS 08/30/18 09/11/18 History insulin detemir U-100 [Levemir 20 unit SUBCUT BID 08/30/18 09/11/18 History FlexTouch U-100 Insuln] mupirocin 1 applic TOPICAL BID 08/30/18 09/11/18 History prasugrel 10 mg PO DAILY 08/30/18 09/11/18 History vit B comp no.5-fialn-P-biotin 1 tab PO DAILY 08/30/18 09/11/18 History [Nephro-Bonita Rx] Active Medications: Active Medications Acetaminophen (Tylenol) 650 mg PO Q4H PRN PRN Reason: Temp > 100.4 OR PAIN 1-5 Last Admin: 09/11/18 21:37 Dose: 650 mg Acetaminophen (Tylenol) 650 mg PO UNSCH PRN PRN Reason: SEE LABEL COMMENTS Al Hydroxide/Mg Hydroxide (Milk Of Leonidas Luke) 30 ml PO Q12H PRN PRN Reason: Mild Constipation Albuterol (Duoneb Neb (Prn)) 1 ampul NEB Q4HR NEB PRN PRN Reason: SOB/WHEEZING Last Admin: 09/19/18 01:48 Dose: 1 ampul Aspirin (Ecotrin) 81 mg PO DAILY [facility] Last Admin: 09/20/18 08:36 Dose: 81 mg Atorvastatin Calcium (Lipitor) 80 mg PO HS [facility] Last Admin: 09/19/18 20:58 Dose: 80 mg Azithromycin (Zithromax) 500 mg PO DAILY [facility] Last Admin: 09/20/18 08:36 Dose: 500 mg Bisacodyl (Dulcolax Supp) 10 mg RECTAL DAILY PRN PRN Reason: SEVERE CONSITIPATION Last Admin: 09/17/18 14:23 Dose: 10 mg Budesonide/Formoterol Fumarate (Symbicort 160/4.5 Mcg Inh) 2 puff INH BID [facility] Last Admin: 09/20/18 08:44 Dose: 2 puff Bumetanide (Bumex) 1 mg PO BID [facility] Last Admin: 09/20/18 08:33 Dose: 1 mg Calcium Acetate (Phoslo) 667 mg PO TID [facility] Last Admin: 09/20/18 12:37 Dose: 667 mg Carvedilol (Coreg) 6.25 mg PO BID [facility] Last Admin: 09/20/18 08:35 Dose: 6.25 mg Clonidine HCl (Catapres) 0.1 mg PO UNSCH PRN PRN Reason: SEE LABEL COMMENTS Dextrose (D50w Vial) 50 ml IV.PUSH UNSCH PRN PRN Reason: PER HYPOGLYCEMIA PROTOCOL Last Admin: 09/13/18 09:00 Dose: 50 ml Diphenhydramine HCl (Benadryl) 25 mg PO UNSCH PRN PRN Reason: SEE LABEL COMMENTS Epoetin Low (Epogen Inj) 6,000 unit IV.PUSH UNSCH PRN PRN Reason: SEE LABEL COMMENTS Last Admin: 09/19/18 19:04 Dose: 6,000 unit Gabapentin (Neurontin) 100 mg PO HS [facility] Last Admin: 09/19/18 20:57 Dose: 100 mg Gelatin (Gelfoam 12 Mm/7 Mm Topical) 1 foam TOPICAL PRN PRN PRN Reason: help stop bleeding from site Last Admin: 09/16/18 11:27 Dose: 1 foam Gentamicin Sulfate (Gentamicin Inj) 20 mg OTHER WITH DIALYSIS PRN PRN Reason: Dwell Gentamycin Lock Glucagon (Glucagon Inj) 1 mg OTHER PRN PRN PRN Reason: for Hypoglycemia Protocol Guaifenesin/Dextromethorphan (Robitussin Dm 200/20 Mg/10 Ml Liq) 10 ml PO Q6H [facility] Last Admin: 09/20/18 12:37 Dose: 10 ml Heparin Sodium (Porcine) (Heparin Inj) 8,000 units OTHER WITH DIALYSIS PRN PRN Reason: for machine prime Heparin Sodium (Porcine) (Heparin Inj) 1,000 units OTHER WITH DIALYSIS PRN PRN Reason: Dwell Heparin to Fill Catheter Hydralazine HCl (Apresoline) 100 mg PO TID [facility] Last Admin: 09/20/18 12:37 Dose: 100 mg Albumin Human (Flexbumin 25% Inj) 100 mls @ 60 mls/hr IV.SIG WITH DIALYSIS PRN PRN Reason: hypotension / volume replace Sodium Chloride (Ns Inj) 1,000 mls @ 0 mls/hr OTHER .Q0M PRN PRN Reason: for prime and rinse back Sodium Chloride (Ns Inj) 1,000 mls @ 200 mls/hr OTHER .Q5H PRN PRN Reason: for dialyzer flush PRN Sodium Chloride (Ns Inj) 1,000 mls @ 0 mls/hr IV.CONT .Q0M PRN PRN Reason: hypotension / volume replace Insulin Aspart (Novolog Insulin Correctional Sugar Inj) 0 unit SQ ACHS [facility]; Protocol Last Admin: 09/20/18 12:38 Dose: Not Given Insulin Detemir (Levemir Inj) 5 unit SQ BID [facility] Last Admin: 09/20/18 08:37 Dose: 5 unit Lactulose (Lactulose Liq) 30 ml PO DAILY PRN PRN Reason: SEVERE CONSITIPATION Mannitol (Mannitol Inj) 12.5 gm IV.PUSH UNSCH PRN PRN Reason: hypotension / volume replace Nifedipine (Procardia Xl) 90 mg PO DAILY [facility] Last Admin: 09/20/18 08:34 Dose: 90 mg Nitroglycerin (Nitrostat Sl) 0.4 mg SL Q5M PRN PRN Reason: CHEST PAIN Ondansetron HCl (Zofran Inj) 4 mg IV.PUSH Q6H PRN PRN Reason: NAUSEA OR VOMITING Last Admin: 09/13/18 14:28 Dose: 4 mg Ondansetron HCl (Zofran Inj) 4 mg IV.PUSH UNSCH PRN PRN Reason: NAUSEA OR VOMITING Oxycodone/Acetaminophen (Percocet 5/325 Mg) 1 tab PO Q4H PRN PRN Reason: PAIN SCALE 6 TO 10 Last Admin: 09/20/18 12:37 Dose: 1 tab Prasugrel (Effient) 10 mg PO DAILY [facility] Last Admin: 09/20/18 08:35 Dose: 10 mg Senna/Docusate Sodium (Jocelyn-Colace) 1 tab PO BID [facility] Last Admin: 09/20/18 08:35 Dose: 1 tab Sennosides (Senokot) 17.2 mg PO Q12H PRN PRN Reason: Moderate Constipation Sodium Chloride (Ns Flush) 5 ml IV.FLUSH PRN PRN PRN Reason: flush each lumen during HD Sodium Chloride (Ns Flush) 2 ml IV.FLUSH BID YAMILET Last Admin: 09/20/18 08:43 Dose: 2 ml Sodium Chloride (Ns Flush) 2 ml IV.FLUSH PRN PRN PRN Reason: FLUSH AFTER USING IV ACCESS Physical Exam Vital signs: Vital Signs 09/19/18 15:00 09/19/18 16:00 09/19/18 17:00 Temperature 98 F Pulse Rate 68 62 62 Respiratory Rate 18 Blood Pressure 148/70 H Pulse Oximetry 99 09/19/18 18:00 09/19/18 19:00 09/19/18 20:00 Temperature 98 F Pulse Rate 62 68 80 Respiratory Rate 18 Blood Pressure 148/70 H Pulse Oximetry 99 09/19/18 21:00 09/19/18 21:49 09/19/18 22:00 Temperature Pulse Rate 81 82 Respiratory Rate Blood Pressure Pulse Oximetry 96 09/19/18 23:00 09/20/18 00:00 09/20/18 01:00 Temperature 98.4 F Pulse Rate 67 65 65 Respiratory Rate 16 Blood Pressure 149/65 H Pulse Oximetry 99 09/20/18 02:00 09/20/18 02:34 09/20/18 03:00 Temperature 98.6 F Pulse Rate 65 144 H 68 Respiratory Rate 16 Blood Pressure 155/68 H Pulse Oximetry 98 09/20/18 04:00 09/20/18 05:00 09/20/18 05:54 Temperature Pulse Rate 64 65 65 Respiratory Rate Blood Pressure Pulse Oximetry 09/20/18 07:00 09/20/18 08:00 09/20/18 09:00 Temperature 97.8 F Pulse Rate 63 63 63 Respiratory Rate 14 Blood Pressure 158/68 H Pulse Oximetry 94 L 94 L 09/20/18 09:36 09/20/18 10:00 09/20/18 11:00 Temperature 97.8 F Pulse Rate 62 64 Respiratory Rate 16 16 Blood Pressure 139/63 Pulse Oximetry 93 L 09/20/18 12:00 09/20/18 13:00 Temperature Pulse Rate 61 62 Respiratory Rate Blood Pressure Pulse Oximetry Intake & Output 10/22/18 10/23/18 10/23/18 18:59 06:59 18:59 Intake Total 240 / 240 Output Total 3000 / 3000 Balance -2760 / -2760 Weight 64.5 kg Intake: Oral 240 / 240 Output: Urine 0 / 0 Hemodialysis Amount 3000 / 3000 Narrative: GENERAL: This is a well-nourished, well-developed patient, in no apparent distress. Patient speaks in clear complete sentences. Patient is pleasant. HEENT: Head is atraumatic and normocephalic. Neck is supple without lymphadenopathy and trachea is midline. No JVD or carotid bruits. CARDIOVASCULAR: Regular rate and rhythm without murmurs, gallops, or rubs. RESPIRATORY: Coarse rhonchi throughout bilaterally. Inspiratory and expiratory wheezing upper lobes bilaterally. No rales, or rhonchi. Chest wall is nontender. No use of accessory muscles. GASTROINTESTINAL: Abdomen is nontender, nondistended. Abdomen soft. No obvious pulsatile mass or bruit. No CVA tenderness. Strong femoral pulses bilaterally. Normal bowel sounds in all quadrants. MUSCULOSKELETAL: Patient is moving upper and lower extremities freely. No calf tenderness or edema, no Homans sign. Strong pulses in upper and lower extremities. NEUROLOGICAL: Patient is alert and oriented. Cranial nerves 2-12 are grossly intact. No focal deficits and speech is clear. SKIN: No rash and turgor is normal. Results 09/20/18 05:13 09/20/18 05:13 Cardiac Enzymes 09/20/18 Range/Units 05:13 AST 16 (15-37) U/L CBC 09/19/18 09/20/18 Range/Units 04:47 05:13 WBC 6.7 5.5 (4.0-11.0) th/mm3 RBC 3.72 L 3.74 L (4.00-5.30) mil/mm3 Hgb 11.4 L 11.5 L (11.6-15.3) gm/dL Hct 34.8 L 34.6 L (35.0-46.0) % Plt Count 258 257 (150-450) th/mm3 Neut # (Auto) 4.5 3.7 (1.8-7.7) th/mm3 Lymph # (Auto) 1.3 1.0 (1.0-4.8) th/mm3 [place] # (Auto) 0.5 0.5 (0.0-0.9) th/mm3 Eos # (Auto) 0.3 0.3 (0.0-0.4) th/mm3 Baso # (Auto) 0.1 0.1 (0.0-0.2) th/mm3 Comprehensive Metabolic Panel 09/19/18 09/20/18 Range/Units 04:47 05:13 Sodium 134 L 136 (136-145) meq/L Potassium 4.5 4.1 (3.5-5.1) meq/L Chloride 95 L 98 (98-107) meq/L Carbon Dioxide 32.5 H 33.2 H (21.0-32.0) meq/L BUN 41 H 29 H (7-18) mg/dL Creatinine 3.77 H 2.93 H (0.50-1.00) mg/dL Calcium 8.5 8.4 L (8.5-10.1) mg/dL AST 16 (15-37) U/L ALT 13 (10-53) U/L Alkaline Phosphatase 129 H (45-117) U/L Total Protein 6.4 (6.4-8.2) g/dL Albumin 1.9 L 1.9 L (3.4-5.0) g/dL Intake and Output 09/19/18 09/20/18 09/20/18 22:59 06:59 14:59 Intake Total 240 / 240 Output Total 3000 / 3000 0 / 0 Balance -3000 / -3000 240 / 240 Intake: Oral 240 / 240 Output: Urine 0 / 0 Hemodialysis Amount 3000 / 3000 Other: Weight 64.5 kg Assessment and Plan - Assessment (1) DKA (diabetic ketoacidoses) Code(s): E13.10 - Other specified diabetes mellitus with ketoacidosis without coma Status: Acute (2) Acute UTI Code(s): N39.0 - Urinary tract infection, site not specified Status: Acute (3) ESRD (end stage renal disease) on dialysis Code(s): N18.6 - End stage renal disease; Z99.2 - Dependence on renal dialysis Status: Acute (4) Diabetes Code(s): E11.9 - Type 2 diabetes mellitus without complications Status: Acute (5) Hypertension Code(s): I10 - Essential (primary) hypertension Status: Acute (6) Pain and swelling of right upper extremity Code(s): M79.601 - Pain in right arm; M79.89 - Other specified soft tissue disorders Status: Acute (7) Fluid overload Code(s): E87.70 - Fluid overload, unspecified Status: Acute - Plan Patient continues to remain stable from a cardiac standpoint. We will continue current cardiac treatment plan. Pulmonary evaluation in progress for SOB. Increase activity, PT. We will continue to follow the patient during her hospitalization and see her back for follow-up in our office post discharge. Patient was seen and evaluated by Dr. Reddy who participated in care, management and decision-making. - Attending Attestation Patient seen and examined. I reviewed and agree with the evaluation and plan as presented. Continue current program including dialysis. No new cardiac issues. Increase activity. (1) DKA (diabetic ketoacidoses) Qualifiers: Diabetes mellitus type: type 2 Diabetes mellitus complication detail: without coma Qualified Code(s): E11.10 - Type 2 diabetes mellitus with ketoacidosis without coma (4) Diabetes Qualifiers: Diabetes mellitus long term care pharmacist insulin use: with longterm use (7) Fluid overload Qualifiers: Hypervolemia type: unspecified Qualified Code(s): E87.70 - Fluid overload, unspecified
[2018-09-20] MEDS ORDERED: Bisacodyl 10 MG Supp RECTAL PRN (14:40)
[2018-09-20] MEDS: Bisacodyl 10 MG Supp RECTAL PRN (15:36)
--- NOTE | 2018-09-20 16:08 | P.PNVS ---
- Pre-operative Note Planned Procedure: proximalization of RUE AVF Labs: WBC 5.5 th/mm3 (4.0-11.0) 09/20/18 05:13 RBC 3.74 mil/mm3 (4.00-5.30) L 09/20/18 05:13 Hgb 11.5 gm/dL (11.6-15.3) L 09/20/18 05:13 Hct 34.6 % (35.0-46.0) L 09/20/18 05:13 MCV 92.4 fL (80.0-100.0) 09/20/18 05:13 MCH 30.7 pg (27.0-34.0) 09/20/18 05:13 MCHC 33.3 % (32.0-36.0) 09/20/18 05:13 RDW 16.1 % (11.6-17.2) 09/20/18 05:13 Plt Count 257 th/mm3 (150-450) 09/20/18 05:13 MPV 8.3 fL (7.0-11.0) 09/20/18 05:13 Sodium 136 meq/L (136-145) 09/20/18 05:13 Potassium 4.1 meq/L (3.5-5.1) 09/20/18 05:13 Chloride 98 meq/L (98-107) 09/20/18 05:13 Carbon Dioxide 33.2 meq/L (21.0-32.0) H 09/20/18 05:13 Anion Gap 5 meq/L (5-15) 09/20/18 05:13 BUN 29 mg/dL (7-18) H 09/20/18 05:13 Random Glucose 130 mg/dL (74-106) H 09/20/18 05:13 Calcium 8.4 mg/dL (8.5-10.1) L 09/20/18 05:13 Imaging: ITS Impressions Extremity Arterial Study 09/15/18 00:00 CONCLUSION: 1. Diminished finger brachial indices at each digit most characteristic of steno-occlusive disease in the right upper extremity. Chest X-Ray 09/18/18 00:00 CONCLUSION: Increased opacification in the left lung base which may represent increased infiltrate and/or effusion. Consent: Informed consent has been obtained from Brinda Maynard. I have explained the procedure in detail and discussed the risks, benefits, and potential complications. All questions have been answered.
[2018-09-20] MEDS ORDERED: Iohexol 350 MG/ML 100 ML Vial (for Cath Lab) IVCONTRAST ONE (16:16)
[2018-09-20 17:13] LABS: Hemoglobin A1c 10.4 % (4.3-6.0)
[2018-09-20] MEDS: Gabapentin 100 MG Capsule PO SCH (21:40)
[2018-09-21] MEDS: guaiFENesin/Dextromethorphan 200 MG/20 MG 10 ML UDC PO SCH ×3 (00:15→20:10)
[2018-09-21] MEDS: Budesonide-Formoterol 160/4.5 MCG 6 GM Inhaler INH SCH ×3 (00:57→20:42)
[2018-09-21] MEDS: Sodium Chloride 0.9% 2 ML Flush BID IV.FLUSH SCH ×3 (00:57→20:43)
[2018-09-21 06:12] LABS: Baso # (Auto) 0.1 th/mm3 (0.0-0.2); Eos # (Auto) 0.1 th/mm3 (0.0-0.4); Eos % (Auto) 2.4 % (0.0-4.0); Hematocrit 35.5 % (35.0-46.0); Hemoglobin 11.2 gm/dL (11.6-15.3); Lymph # (Auto) 1.2 th/mm3 (1.0-4.8); Lymph % (Auto) 25.2 % (9.0-44.0); Mean Corpuscular HGB Conc 31.6 % (32.0-36.0); Mean Corpuscular Hemoglobin 29.8 pg (27.0-34.0); Mono # (Auto) 0.5 th/mm3 (0.0-0.9); Mono % (Auto) 9.5 % (0.0-8.0); Neut # (Auto) 3.1 th/mm3 (1.8-7.7); Neut % (Auto) 61.9 % (16.0-70.0); Platelet Count 265 th/mm3 (150-450); Red Blood Count 3.77 mil/mm3 (4.00-5.30); Red Cell Distribution Width 16.2 % (11.6-17.2); White Blood Count 4.9 th/mm3 (4.0-11.0)
[2018-09-21 06:43] LABS: Albumin 1.8 g/dL (3.4-5.0); Anion Gap 5 meq/L (5-15); Aspartate Aminotransferase 18 U/L (15-37); Calcium 8.2 mg/dL (8.5-10.1); Carbon Dioxide 33.2 meq/L (21.0-32.0); Chloride 98 meq/L (98-107); Glomerular Filtration Rate 14 mL/min (>89); Glucose,Random 86 mg/dL (74-106); Magnesium 2.2 mg/dL (1.5-2.5); Potassium 4.2 meq/L (3.5-5.1); Sodium 136 meq/L (136-145)
[2018-09-21 06:47] LABS: Alanine Aminotransferase 12 U/L (10-53); Alkaline Phosphatase 120 U/L (45-117); Blood Urea Nitrogen 33 mg/dL (7-18); Phosphorus 3.1 mg/dL (2.5-4.9); Total Protein 6.1 g/dL (6.4-8.2)
[2018-09-21] MEDS: Insulin NovoLOG Aspart Correctional Sugar Inj SQ SCH ×4 (08:00→20:50)
--- NOTE | 2018-09-21 09:22 | P.PNNP ---
Subjective Interval history: Reports that shortness of breath has improved. Hemodialysis planned for today. Proximalization of AVG today for steel <Jessica Clemons - Last Filed: 09/21/18 09:13> Physical Exam Vital signs: Vital Signs 09/20/18 09:36 09/20/18 10:00 09/20/18 11:00 Temperature 97.8 F Pulse Rate 62 64 Respiratory Rate 16 16 Blood Pressure 139/63 Pulse Oximetry 93 L 09/20/18 12:00 09/20/18 13:00 09/20/18 14:00 Temperature Pulse Rate 61 62 58 L Respiratory Rate Blood Pressure Pulse Oximetry 09/20/18 15:00 09/20/18 16:00 09/20/18 17:16 Temperature 97.5 F L Pulse Rate 58 L 60 Respiratory Rate 15 Blood Pressure 117/58 L Pulse Oximetry 93 L 94 L 09/20/18 18:00 09/20/18 19:00 09/20/18 20:00 Temperature 98.6 F Pulse Rate 64 62 72 Respiratory Rate 16 Blood Pressure 126/68 Pulse Oximetry 98 94 L 09/20/18 21:00 09/20/18 22:00 09/20/18 22:25 Temperature 98.6 F Pulse Rate 75 80 80 Respiratory Rate 16 Blood Pressure 123/57 L Pulse Oximetry 94 L 09/20/18 23:00 09/21/18 00:00 09/21/18 01:00 Temperature Pulse Rate 79 65 65 Respiratory Rate Blood Pressure Pulse Oximetry 09/21/18 01:55 09/21/18 03:00 09/21/18 04:00 Temperature 98.6 F Pulse Rate 64 65 64 Respiratory Rate 16 Blood Pressure 149/65 H Pulse Oximetry 95 09/21/18 05:00 09/21/18 05:54 Temperature Pulse Rate 65 66 Respiratory Rate Blood Pressure Pulse Oximetry Intake & Output 09/20/18 09/21/18 09/21/18 18:59 06:59 18:59 Intake Total 600 / 600 Output Total 30 / 30 Balance 600 / 600 -30 / -30 Weight 64.4 kg Intake: Oral 600 / 600 Output: Urine 30 / 30 Other: Date of Last Bowel Movement 09/20/18 09/20/18 # Bowel Movements 1 # Incontinent Bowel Movements 2 Narrative: GENERAL: Alert and oriented. SKIN: Warm and dry. NECK: Supple, trachea midline. No JVD. CARDIOVASCULAR: Regular rate and rhythm without murmurs, gallops, or rubs. RESPIRATORY: Breath sounds diminished equal bilaterally. No accessory muscle use. GASTROINTESTINAL: Abdomen soft, non-tender, nondistended. MUSCULOSKELETAL: No cyanosis, or edema. Small dry wound of the right thumb BACK: Nontender without obvious deformity. No CVA tenderness. <Jessica Clemons - Last Filed: 09/21/18 09:13> Vital signs: Vital Signs 09/21/18 20:00 09/21/18 21:00 09/21/18 22:00 Temperature Pulse Rate 70 69 72 Respiratory Rate Blood Pressure Pulse Oximetry 99 09/21/18 23:00 09/22/18 00:00 09/22/18 01:00 Temperature 97.9 F Pulse Rate 71 65 66 Respiratory Rate 18 Blood Pressure 109/53 L Pulse Oximetry 97 09/22/18 02:00 09/22/18 03:00 09/22/18 04:00 Temperature 98.6 F Pulse Rate 68 68 68 Respiratory Rate 22 Blood Pressure 116/65 Pulse Oximetry 100 09/22/18 05:00 09/22/18 05:52 09/22/18 07:00 Temperature 97.3 F L Pulse Rate 68 66 69 Respiratory Rate 16 Blood Pressure 174/67 H Pulse Oximetry 96 09/22/18 08:00 09/22/18 09:00 09/22/18 10:00 Temperature Pulse Rate 64 66 68 Respiratory Rate Blood Pressure Pulse Oximetry 96 09/22/18 11:00 09/22/18 12:00 09/22/18 13:00 Temperature 97.9 F Pulse Rate 64 62 60 Respiratory Rate 18 Blood Pressure 94/48 L Pulse Oximetry 99 09/22/18 13:28 09/22/18 14:00 09/22/18 15:00 Temperature 98 F Pulse Rate 63 67 Respiratory Rate 18 Blood Pressure 137/56 L 137/65 Pulse Oximetry 96 09/22/18 16:00 09/22/18 17:00 09/22/18 17:54 Temperature Pulse Rate 64 68 64 Respiratory Rate Blood Pressure Pulse Oximetry Intake & Output 09/22/18 09/22/18 09/23/18 06:59 18:59 06:59 Intake Total 480 / 480 800 / 800 Output Total 1650 / 1650 Balance -1170 / -1170 800 / 800 Weight 63 kg Intake: Oral 480 / 480 800 / 800 Output: Urine 0 / 0 Hemodialysis Amount 1500 / 1500 Estimated Blood Loss 150 / 150 Other: # Voids 1 Date of Last Bowel Movement 09/20/18 09/21/18 # Bowel Movements 0 <Des Toro - Last Filed: 09/22/18 19:30> Assessment and Plan - Assessment (1) ESRD (end stage renal disease) on dialysis Code(s): N18.6 - End stage renal disease; Z99.2 - Dependence on renal dialysis Status: Acute Plan: ESRD on hemodialysis on Wednesday, Wednesday and Wednesday. AVG right upper arm Plan High protein diet Continue PhosLo Avoid IVF administration Epogen with dialysis Hemodialysis today prior to procedure, will remove fluid as tolerated. Promalization of right upper extremity AVF today. (2) Fluid overload Code(s): E87.70 - Fluid overload, unspecified Status: Acute Qualifiers: Hypervolemia type: unspecified Qualified Code(s): E87.70 - Fluid overload, unspecified Plan: Stable, continue UF with HD (3) Hypertension Code(s): I10 - Essential (primary) hypertension Status: Acute Plan: Well controlled, Will monitor <Jessica Clemons - Last Filed: 09/21/18 09:13> - Assessment (1) ESRD (end stage renal disease) on dialysis Code(s): N18.6 - End stage renal disease; Z99.2 - Dependence on renal dialysis Status: Acute Plan: Patient seen and examine, agree with above. HD to continue as schedule.Going for AVF revision today for steal syndrome. (2) Fluid overload Code(s): E87.70 - Fluid overload, unspecified Status: Acute Qualifiers: Hypervolemia type: unspecified Qualified Code(s): E87.70 - Fluid overload, unspecified (3) Hypertension Code(s): I10 - Essential (primary) hypertension Status: Acute <Des Toro - Last Filed: 09/22/18 19:30>
--- NOTE | 2018-09-21 12:30 | P.PNIM ---
Subjective Interval history: This is a 67-year-old female with a PMH of HTN, COPD, Hyperlipidemia, O2 Dependent, h/o CAD, DM and ESRD on HD M/W/F who presented to the ER w/ SOB and non-productive cough x2 days. Recent admit 08/30-09/06/18 for similar complaints , found to have CHF Exacerbation w/ significant left pleural effusion s/p thoracentesis/chest tube, NSTEMI and suspected Sepsis. States she had been doing well after discharge until 2 days ago. Using home Nebulizers w/ minimal relief. Follows w/ Dr. Toro, last HD on Wednesday w/ no complications. Denies fever, chills, chest pain or sick contacts. On arrival, BP 124/78, HR 64, O2 sat 86% on RA, Afebrile. CBC unremarkable. Creatinine 3.0, previous E2.86. BS 771. BNP 2644. Troponin 0 0.03. CXR with chronic pleural effusions left greater than right, finding stable since prior exam. S/p DuoNeb in ER w/ some improvement. 10-15 Patient still reports shortness of breath. Essentially unchanged from yesterday. Awaiting to have dialysis today. 10-16 SHANON called on the patient this morning for blood glucose of 22. She was hard to arouse and diaphoretic. The patient was given 1 amp of D50 and immediately transferred to the [facility] where I evaluated the patient. Blood glucose improved to 157. She is nauseous and retching. Otherwise is responding appropriately to questions. 10-17 Patient complains of worsening pain on her right thumb. She otherwise feels much better today. 10-18 Plastic surgery note reviewed . Patient reports she is feeling better overall. Breathing more comfortable. 10-19 Patient reports she had more pain on the right thumb earlier during dialysis. Otherwise she reports her breathing is improved. No chest pain. 10-20 Patient says she is feeling alright. Denies any chest pain. Reports shortness of breath overall improved. 10-21 Patient says she is feeling comfortable this morning. Denies any chest pain or shortness of breath. Denies nausea or vomiting. 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 AM LABS 10- HAD ANGIOGRAM OF RIGHT UE NEEDS SHUNT REVISION NEEDS PT AND OT DW RN AND PT AND CM 09-21 SEEN IN HD TO GO FOR REVISION OF RIGHT UE GRAFT LATER TODAY WITH VASCULAR AM LABS INCREASE ACTIVITY DW RN AND PT AND CM Physical Exam Vital signs: Vital Signs 09/20/18 13:00 09/20/18 14:00 09/20/18 15:00 Temperature 97.5 F L Pulse Rate 62 58 L 58 L Respiratory Rate 15 Blood Pressure 117/58 L Pulse Oximetry 93 L 09/20/18 16:00 09/20/18 17:16 09/20/18 18:00 Temperature Pulse Rate 60 64 Respiratory Rate Blood Pressure Pulse Oximetry 94 L 09/20/18 19:00 09/20/18 20:00 09/20/18 21:00 Temperature 98.6 F Pulse Rate 62 72 75 Respiratory Rate 16 Blood Pressure 126/68 Pulse Oximetry 98 94 L 09/20/18 22:00 09/20/18 22:25 09/20/18 23:00 Temperature 98.6 F Pulse Rate 80 80 79 Respiratory Rate 16 Blood Pressure 123/57 L Pulse Oximetry 94 L 09/21/18 00:00 09/21/18 01:00 09/21/18 01:55 Temperature Pulse Rate 65 65 64 Respiratory Rate Blood Pressure Pulse Oximetry 09/21/18 03:00 09/21/18 04:00 09/21/18 05:00 Temperature 98.6 F Pulse Rate 65 64 65 Respiratory Rate 16 Blood Pressure 149/65 H Pulse Oximetry 95 09/21/18 05:54 09/21/18 07:00 09/21/18 08:00 Temperature 97.7 F Pulse Rate 66 63 62 Respiratory Rate 14 Blood Pressure 160/67 H Pulse Oximetry 98 09/21/18 09:00 09/21/18 10:19 Temperature Pulse Rate 60 Respiratory Rate Blood Pressure Pulse Oximetry 95 Intake & Output 09/20/18 09/21/18 09/21/18 18:59 06:59 18:59 Intake Total 600 / 600 Output Total 30 / 30 1500 / 1500 Balance 600 / 600 -30 / -30 -1500 / -1500 Weight 64.4 kg Intake: Oral 600 / 600 Output: Urine 30 / 30 Hemodialysis Amount 1500 / 1500 Other: Date of Last Bowel Movement 09/20/18 09/20/18 # Bowel Movements 1 # Incontinent Bowel Movements 2 Narrative: GENERAL: Alert and oriented. SKIN: Warm and dry. NECK: Supple, trachea midline. No JVD. CARDIOVASCULAR: Regular rate and rhythm without murmurs, gallops, or rubs. RESPIRATORY: Breath sounds diminished equal bilaterally. No accessory muscle use. GASTROINTESTINAL: Abdomen soft, non-tender, nondistended. MUSCULOSKELETAL: No cyanosis, or edema. Small dry wound of the right thumb BACK: Nontender without obvious deformity. No CVA tenderness. Results - Labs CBC & Chem 7: 09/21/18 05:58 09/21/18 05:58 Laboratory Results - last 24 hr 09/20/18 09/20/18 09/20/18 05:13 16:29 17:30 WBC RBC Hgb Hct MCV MCH MCHC RDW Plt Count MPV Neut % (Auto) Lymph % (Auto) [place] % (Auto) Eos % (Auto) Baso % (Auto) Neut # (Auto) Lymph # (Auto) [place] # (Auto) Eos # (Auto) Baso # (Auto) WBC Differential Differential Comment Sodium Potassium Chloride Carbon Dioxide Anion Gap BUN Creatinine Estimated GFR POC Glucose 63 L 133 H Random Glucose Hemoglobin A1c 10.4 H Calcium Phosphorus Magnesium Total Bilirubin AST ALT Alkaline Phosphatase Total Protein Albumin 09/20/18 09/21/18 09/21/18 19:58 05:58 05:58 WBC 4.9 RBC 3.77 L Hgb 11.2 L Hct 35.5 MCV 94.0 MCH 29.8 MCHC 31.6 L RDW 16.2 Plt Count 265 MPV 8.0 Neut % (Auto) 61.9 Lymph % (Auto) 25.2 [place] % (Auto) 9.5 H Eos % (Auto) 2.4 Baso % (Auto) 1.0 Neut # (Auto) 3.1 Lymph # (Auto) 1.2 [place] # (Auto) 0.5 Eos # (Auto) 0.1 Baso # (Auto) 0.1 WBC Differential . Differential Comment Auto diff final Sodium 136 Potassium 4.2 Chloride 98 Carbon Dioxide 33.2 H Anion Gap 5 BUN 33 H Creatinine 3.35 H Estimated GFR 14 L POC Glucose 138 H Random Glucose 86 Hemoglobin A1c Calcium 8.2 L Phosphorus 3.1 Magnesium 2.2 Total Bilirubin 0.2 AST 18 ALT 12 Alkaline Phosphatase 120 H Total Protein 6.1 L Albumin 1.8 L 09/21/18 09/21/18 09/21/18 07:50 09:19 12:26 WBC RBC Hgb Hct MCV MCH MCHC RDW Plt Count MPV Neut % (Auto) Lymph % (Auto) [place] % (Auto) Eos % (Auto) Baso % (Auto) Neut # (Auto) Lymph # (Auto) [place] # (Auto) Eos # (Auto) Baso # (Auto) WBC Differential Differential Comment Sodium Potassium Chloride Carbon Dioxide Anion Gap BUN Creatinine Estimated GFR POC Glucose 70 76 96 Random Glucose Hemoglobin A1c Calcium Phosphorus Magnesium Total Bilirubin AST ALT Alkaline Phosphatase Total Protein Albumin Microbiology 09/15/18 10:55 Blood - Peripheral Aerobic Blood Culture - Final No growth in 5 days 09/15/18 10:55 Blood - Peripheral Anaerobic Blood Culture - Final No growth in 5 days 09/15/18 10:44 Blood - Peripheral Aerobic Blood Culture - Final No growth in 5 days 09/15/18 10:44 Blood - Peripheral Anaerobic Blood Culture - Final No growth in 5 days 09/15/18 10:58 Blood - Peripheral Aerobic Blood Culture - Final No growth in 5 days 09/15/18 10:58 Blood - Peripheral Anaerobic Blood Culture - Final No growth in 5 days - Imaging ITS Impressions Extremity Arterial Study 09/15/18 00:00 CONCLUSION: 1. Diminished finger brachial indices at each digit most characteristic of steno-occlusive disease in the right upper extremity. Chest X-Ray 09/18/18 00:00 CONCLUSION: Increased opacification in the left lung base which may represent increased infiltrate and/or effusion. - Procedures RIGHT UE ANGIOGRAM AND HD Assessment and Plan - Assessment (1) CHF (congestive heart failure) Code(s): I50.9 - Heart failure, unspecified Status: Acute (2) Pleural effusion Code(s): J90 - Pleural effusion, not elsewhere classified Status: Acute (3) Hypoxia Code(s): R09.02 - Hypoxemia Status: Acute (4) ESRD on dialysis Code(s): N18.6 - End stage renal disease; Z99.2 - Dependence on renal dialysis Status: Acute (5) DM (diabetes mellitus) Code(s): E11.9 - Type 2 diabetes mellitus without complications Status: Acute - Plan 67-year-old female on hemodialysis admitted with acute diastolic CHF. Patient is also a brittle diabetic who presented with blood sugar of 700. She had one episode of acute hypoglycemia. She was transferred to the [facility] but is now returned to the PCU. CHF: Acute on Chronic. Diastolic. Echo 08/09/18 w/ EF 50-55%, BNP 2644, CXR w / chronic effusions, images reviewed. Continue home Bumex, monitor I/O, appreciate nephrology input. Dialysis as scheduled. Acute symptomatic hypoglycemia/DM: Brittle diabetic, presented with BS in the 700's. Glucose in the 20s on 09/13/18. Received Levemir the night before. Treated with D50 and IVF. - Continue SSI with accuchecks. - Diabetic diet. - Blood glucose spiked in the 300's again. Resume Levemir at a lower dose 10 unit in AM. - Blood glucose better today. Continue to monitor. = Still glucose in the 400s today. Will switch to Levemir 5 units twice daily, and increase sliding scale to moderate. = 09/18. Patient with a glucose of 49 this morning. Have adjusted insulin regimen. Right upper extremity steal syndrome/H/O AV graft: -Appreciate vascular surgery following. Duplex ultrasound ordered. Vascular surgery planning for revision. = 09/18. Plan for angiogram on 09/19 as per vascular surgery. Appreciate assistance. Angiogram today September 19- NEEDS REVISION OF GRAFT 09-21 FOR REVISION OF AV GRAFT LATER TODAY CAD, abnormalities on tele with concerns for Atrial flutter: No cardiovascular complaints. Unsure if she has a history of Afib. - Patient evaluated by Cardiology, Dr. Reddy. tele findings believed to be artifacts - Continue Coreg, Effient, Statin. Monitor on Tele Pleural Effusion: recent admit w/ large left effusion s/p thoracentesis/chest tube, CXR w/ pleural effusions, left greater than right, however stable. COPD -Pulmonology following - Continue current treatment. If Effusion stable. = 09/18. Increased oxygen requirement to 6 L nasal cannula. Will check chest x -ray to monitor effusion. Pulmonology following. Appreciate assistance. Hypoxemia: O2 sat 86% on RA upon arrival, O2 dependent at night per patient, currently O2 sat 94% on 4L NC, monitor closely. DuoNeb prn. -Respiratory status seems to be stable today. = 09/18. Increasing ostial requirement. Will check BNP, repeat chest x-ray. ESRD on HD: M/W/F -Appreciate nephrology following. DVT Prophylaxis: SCD/Teds We will consult matcher offbearer regarding decub ulcers and feet WANTS DIET CHANGED AROUND AM LABS Code Status: FULL CODE Discussed Condition With: RN AND PT AND CM AND CARDIOLOGY Discharge Planning: PENDING CLEARANCE BY VASCULAR SURGERY AND NEPHROLOGY
[2018-09-21] MEDS ORDERED: Gelatin Size 100 Topical Foam ONE (13:32)
[2018-09-21] MEDS ORDERED: Heparin 10,000 UNITS/10 ML Vial (for IV use) ONE (13:33)
[2018-09-21] MEDS ORDERED: Heparin/NS PF Inj 500 ML ONE (13:33)
[2018-09-21] MEDS ORDERED: Bupivacaine 0.5% Inj 50 ML MDV Vial ONE (13:33)
[2018-09-21] MEDS ORDERED: Lidocaine PF 1% Inj 30 ML Vial ONE ×2 (13:33→15:42)
[2018-09-21] MEDS ORDERED: Thrombin Topical 20,000 UNIT Spray Kit TOPICAL ONE (13:33)
[2018-09-21] MEDS ORDERED: Protamine Sulfate Inj 50 MG/5 ML Vial ONE ×2 (13:33→16:17)
[2018-09-21] MEDS ORDERED: Lidocaine PF 1% Inj 5 ML Syringe OTHER ONE (13:56)
[2018-09-21] MEDS ORDERED: Sodium Chlor 0.9% Inj 250 ML IV.CONT ONE (13:56)
[2018-09-21] MEDS ORDERED: Phenylephrine/NS 1000 MCG/10ML Syringe IV.PUSH ONE (13:56)
[2018-09-21] MEDS ORDERED: ceFAZolin 2 GM Premix Inj 2 GM/50 ML PIGGYBACK IV.SIG ONE (14:08)
--- NOTE | 2018-09-21 14:47 | P.PNCA ---
Subjective Interval history: Patient denies any CP, pressure, palpitations or dizziness. Patient states that her SOB and edema are improving. Medications and Allergies Allergies Allergy/AdvReac Type Severity Reaction Status Date / Time propoxyphene Allergy Intermediate RASH Verified 07/18/18 07:41 Home Medications Medication Instructions Recorded Confirmed Type albuterol sulfate [Ventolin HFA] 2 puff INHALATION Q6H PRN 06/03/18 09/11/18 History aspirin 81 mg PO DAILY 06/03/18 09/11/18 History budesonide-formoterol [Symbicort] 2 puff INHALATION BID 06/03/18 09/11/18 History atorvastatin 80 mg PO HS 08/30/18 09/11/18 History insulin detemir U-100 [Levemir 20 unit SUBCUT BID 08/30/18 09/11/18 History FlexTouch U-100 Insuln] mupirocin 1 applic TOPICAL BID 08/30/18 09/11/18 History prasugrel 10 mg PO DAILY 08/30/18 09/11/18 History vit B comp no.0-byzyx-P-biotin 1 tab PO DAILY 08/30/18 09/11/18 History [Nephro-[facility]ita Rx] Active Medications: Active Medications Acetaminophen (Tylenol) 650 mg PO Q4H PRN PRN Reason: Temp > 100.4 OR PAIN 1-5 Last Admin: 09/11/18 21:37 Dose: 650 mg Acetaminophen (Tylenol) 650 mg PO UNSCH PRN PRN Reason: SEE LABEL COMMENTS Al Hydroxide/Mg Hydroxide (Milk Of Leonidas Luke) 30 ml PO Q12H PRN PRN Reason: Mild Constipation Albuterol (Duoneb Neb (Prn)) 1 ampul NEB Q4HR NEB PRN PRN Reason: SOB/WHEEZING Last Admin: 09/19/18 01:48 Dose: 1 ampul Aspirin (Ecotrin) 81 mg PO DAILY [facility] Last Admin: 09/20/18 08:36 Dose: 81 mg Atorvastatin Calcium (Lipitor) 80 mg PO HS [facility] Last Admin: 09/20/18 21:40 Dose: 80 mg Azithromycin (Zithromax) 500 mg PO DAILY [facility] Last Admin: 09/20/18 08:36 Dose: 500 mg Bisacodyl (Dulcolax Supp) 10 mg RECTAL DAILY PRN PRN Reason: SEVERE CONSITIPATION Budesonide/Formoterol Fumarate (Symbicort 160/4.5 Mcg Inh) 2 puff INH BID [facility] Last Admin: 09/21/18 00:57 Dose: 2 puff Bumetanide (Bumex) 1 mg PO BID [facility] Last Admin: 09/20/18 21:41 Dose: 1 mg Calcium Acetate (Phoslo) 667 mg PO TID [facility] Last Admin: 09/20/18 18:38 Dose: 667 mg Carvedilol (Coreg) 6.25 mg PO BID [facility] Last Admin: 09/20/18 21:40 Dose: 6.25 mg Clonidine HCl (Catapres) 0.1 mg PO UNSCH PRN PRN Reason: SEE LABEL COMMENTS Dextrose (D50w Vial) 50 ml IV.PUSH UNSCH PRN PRN Reason: PER HYPOGLYCEMIA PROTOCOL Last Admin: 09/13/18 09:00 Dose: 50 ml Diphenhydramine HCl (Benadryl) 25 mg PO UNSCH PRN PRN Reason: SEE LABEL COMMENTS Epoetin Low (Epogen Inj) 6,000 unit IV.PUSH UNSCH PRN PRN Reason: SEE LABEL COMMENTS Last Admin: 09/19/18 19:04 Dose: 6,000 unit Gabapentin (Neurontin) 100 mg PO HS [facility] Last Admin: 09/20/18 21:40 Dose: 100 mg Gelatin (Gelfoam 12 Mm/7 Mm Topical) 1 foam TOPICAL PRN PRN PRN Reason: help stop bleeding from site Last Admin: 09/16/18 11:27 Dose: 1 foam Gentamicin Sulfate (Gentamicin Inj) 20 mg OTHER WITH DIALYSIS PRN PRN Reason: Dwell Gentamycin Lock Glucagon (Glucagon Inj) 1 mg OTHER PRN PRN PRN Reason: for Hypoglycemia Protocol Guaifenesin/Dextromethorphan (Robitussin Dm 200/20 Mg/10 Ml Liq) 10 ml PO Q6H [facility] Last Admin: 09/21/18 05:47 Dose: Not Given Heparin Sodium (Porcine) (Heparin Inj) 8,000 units OTHER WITH DIALYSIS PRN PRN Reason: for machine prime Heparin Sodium (Porcine) (Heparin Inj) 1,000 units OTHER WITH DIALYSIS PRN PRN Reason: Dwell Heparin to Fill Catheter Hydralazine HCl (Apresoline) 100 mg PO TID [facility] Last Admin: 09/20/18 18:38 Dose: 100 mg Albumin Human (Flexbumin 25% Inj) 100 mls @ 60 mls/hr IV.SIG WITH DIALYSIS PRN PRN Reason: hypotension / volume replace Sodium Chloride (Ns Inj) 1,000 mls @ 0 mls/hr OTHER .Q0M PRN PRN Reason: for prime and rinse back Sodium Chloride (Ns Inj) 1,000 mls @ 200 mls/hr OTHER .Q5H PRN PRN Reason: for dialyzer flush PRN Sodium Chloride (Ns Inj) 1,000 mls @ 0 mls/hr IV.CONT .Q0M PRN PRN Reason: hypotension / volume replace Insulin Aspart (Novolog Insulin Correctional Sugar Inj) 0 unit SQ ACHS [facility]; Protocol Last Admin: 09/20/18 21:41 Dose: Not Given Insulin Detemir (Levemir Inj) 5 unit SQ BID [facility] Last Admin: 09/20/18 21:40 Dose: 5 unit Lactulose (Lactulose Liq) 30 ml PO DAILY PRN PRN Reason: SEVERE CONSITIPATION Mannitol (Mannitol Inj) 12.5 gm IV.PUSH UNSCH PRN PRN Reason: hypotension / volume replace Nifedipine (Procardia Xl) 90 mg PO DAILY [facility] Last Admin: 09/20/18 08:34 Dose: 90 mg Nitroglycerin (Nitrostat Sl) 0.4 mg SL Q5M PRN PRN Reason: CHEST PAIN Ondansetron HCl (Zofran Inj) 4 mg IV.PUSH Q6H PRN PRN Reason: NAUSEA OR VOMITING Last Admin: 09/13/18 14:28 Dose: 4 mg Ondansetron HCl (Zofran Inj) 4 mg IV.PUSH UNSCH PRN PRN Reason: NAUSEA OR VOMITING Oxycodone/Acetaminophen (Percocet 5/325 Mg) 1 tab PO Q4H PRN PRN Reason: PAIN SCALE 6 TO 10 Last Admin: 09/21/18 08:56 Dose: 1 tab Prasugrel (Effient) 10 mg PO DAILY [facility] Last Admin: 09/20/18 08:35 Dose: 10 mg Senna/Docusate Sodium (Jocelyn-Colace) 1 tab PO BID [facility] Last Admin: 09/20/18 21:41 Dose: 1 tab Sennosides (Senokot) 17.2 mg PO Q12H PRN PRN Reason: Moderate Constipation Sodium Chloride (Ns Flush) 5 ml IV.FLUSH PRN PRN PRN Reason: flush each lumen during HD Sodium Chloride (Ns Flush) 2 ml IV.FLUSH BID YAMILET Last Admin: 09/21/18 00:57 Dose: 2 ml Sodium Chloride (Ns Flush) 2 ml IV.FLUSH PRN PRN PRN Reason: FLUSH AFTER USING IV ACCESS Physical Exam Vital signs: Vital Signs 09/20/18 15:00 09/20/18 16:00 09/20/18 17:16 Temperature 97.5 F L Pulse Rate 58 L 60 Respiratory Rate 15 Blood Pressure 117/58 L Pulse Oximetry 93 L 94 L 09/20/18 18:00 09/20/18 19:00 09/20/18 20:00 Temperature 98.6 F Pulse Rate 64 62 72 Respiratory Rate 16 Blood Pressure 126/68 Pulse Oximetry 98 94 L 09/20/18 21:00 09/20/18 22:00 09/20/18 22:25 Temperature 98.6 F Pulse Rate 75 80 80 Respiratory Rate 16 Blood Pressure 123/57 L Pulse Oximetry 94 L 09/20/18 23:00 09/21/18 00:00 09/21/18 01:00 Temperature Pulse Rate 79 65 65 Respiratory Rate Blood Pressure Pulse Oximetry 09/21/18 01:55 09/21/18 03:00 09/21/18 04:00 Temperature 98.6 F Pulse Rate 64 65 64 Respiratory Rate 16 Blood Pressure 149/65 H Pulse Oximetry 95 09/21/18 05:00 09/21/18 05:54 09/21/18 07:00 Temperature 97.7 F Pulse Rate 65 66 63 Respiratory Rate 14 Blood Pressure 160/67 H Pulse Oximetry 98 09/21/18 08:00 09/21/18 09:00 09/21/18 10:19 Temperature Pulse Rate 62 60 Respiratory Rate Blood Pressure Pulse Oximetry 95 09/21/18 13:00 Temperature Pulse Rate 65 Respiratory Rate Blood Pressure Pulse Oximetry Intake & Output 09/20/18 09/21/18 09/21/18 18:59 06:59 18:59 Intake Total 600 / 600 Output Total 30 / 30 1500 / 1500 Balance 600 / 600 -30 / -30 -1500 / -1500 Weight 64.4 kg Intake: Oral 600 / 600 Output: Urine 30 / 30 Hemodialysis Amount 1500 / 1500 Other: Date of Last Bowel Movement 09/20/18 09/20/18 # Bowel Movements 1 # Incontinent Bowel Movements 2 - Constitutional no acute distress - Routine HEENT Exam Head: Present: normocephalic Eye: Present: PERRL ENT: Present: mucous membranes moist - Routine Neck Exam Present: full ROM - Routine Respiratory Exam Present: CTA bilaterally - Routine Cardiovascular Exam Present: S1, S2 - Routine Abdominal Exam Present: normoactive bowel sounds - Routine Extremities Exam Present: full ROM, pulses intact, normal capillary refill. Absent: cyanosis, clubbing, edema - Routine Skin Exam Present: intact - Routine Neurological Exam Present: oriented X3 - Detailed Neurological Exam: Coma Scale Eye Opening: Spontaneous Verbal Response: Oriented Motor Response: Obey commands Zeny Coma Scale Total: 15 - Routine Psychiatric Exam Present: normal affect Results 09/21/18 05:58 09/21/18 05:58 Cardiac Enzymes 09/20/18 09/21/18 Range/Units 05:13 05:58 AST 16 18 (15-37) U/L CBC 09/20/18 09/21/18 Range/Units 05:13 05:58 WBC 5.5 4.9 (4.0-11.0) th/mm3 RBC 3.74 L 3.77 L (4.00-5.30) mil/mm3 Hgb 11.5 L 11.2 L (11.6-15.3) gm/dL Hct 34.6 L 35.5 (35.0-46.0) % Plt Count 257 265 (150-450) th/mm3 Neut # (Auto) 3.7 3.1 (1.8-7.7) th/mm3 Lymph # (Auto) 1.0 1.2 (1.0-4.8) th/mm3 [place] # (Auto) 0.5 0.5 (0.0-0.9) th/mm3 Eos # (Auto) 0.3 0.1 (0.0-0.4) th/mm3 Baso # (Auto) 0.1 0.1 (0.0-0.2) th/mm3 Comprehensive Metabolic Panel 09/20/18 09/21/18 Range/Units 05:13 05:58 Sodium 136 136 (136-145) meq/L Potassium 4.1 4.2 (3.5-5.1) meq/L Chloride 98 98 (98-107) meq/L Carbon Dioxide 33.2 H 33.2 H (21.0-32.0) meq/L BUN 29 H 33 H (7-18) mg/dL Creatinine 2.93 H 3.35 H (0.50-1.00) mg/dL Calcium 8.4 L 8.2 L (8.5-10.1) mg/dL AST 16 18 (15-37) U/L ALT 13 12 (10-53) U/L Alkaline Phosphatase 129 H 120 H (45-117) U/L Total Protein 6.4 6.1 L (6.4-8.2) g/dL Albumin 1.9 L 1.8 L (3.4-5.0) g/dL Intake and Output 09/20/18 09/21/18 09/21/18 22:59 06:59 14:59 Intake Total 600 / 600 Output Total 30 / 30 1500 / 1500 Balance 600 / 600 -30 / -30 -1500 / -1500 Intake: Oral 600 / 600 Output: Urine 30 / 30 Hemodialysis Amount 1500 / 1500 Other: Date of Last Bowel Movement 09/20/18 09/20/18 # Bowel Movements 1 # Incontinent Bowel Movements 2 Weight 64.4 kg Assessment and Plan - Assessment (1) DKA (diabetic ketoacidoses) Code(s): E13.10 - Other specified diabetes mellitus with ketoacidosis without coma Status: Acute (2) Acute UTI Code(s): N39.0 - Urinary tract infection, site not specified Status: Acute (3) ESRD (end stage renal disease) on dialysis Code(s): N18.6 - End stage renal disease; Z99.2 - Dependence on renal dialysis Status: Acute (4) Diabetes Code(s): E11.9 - Type 2 diabetes mellitus without complications Status: Acute (5) Hypertension Code(s): I10 - Essential (primary) hypertension Status: Acute (6) Pain and swelling of right upper extremity Code(s): M79.601 - Pain in right arm; M79.89 - Other specified soft tissue disorders Status: Acute (7) Fluid overload Code(s): E87.70 - Fluid overload, unspecified Status: Acute - Plan No new cardiac issues noted. We will continue current cardiac treatment plan. Pulmonary evaluation in progress for SOB. Continue to increase activity as patient tolerates, PT. Patient going to OR today for revision of RUE AVF. We will continue to follow the patient during her hospitalization and see her back for follow-up in our office post discharge. Patient was seen and evaluated by Dr. Reddy who participated in care, management and decision-making. - Attending Attestation Patient seen and examined. I reviewed and agree with the evaluation and plan as presented. Continue current program. Tolerating dialysis well. No new cardiac issues. Increase activity, PT. 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
[2018-09-21] MEDS ORDERED: SODIUM CHLOR 0.9% IV.SIG SCH (17:00)
[2018-09-21] MEDS ORDERED: DESMOPRESSIN IV.SIG SCH (17:00)
--- NOTE | 2018-09-21 17:19 | P.OP ---
Preoperative Diagnosis: Right upper extremity steal syndrome Postoperative Diagnosis: Right upper extremity steal syndrome Date of procedure: 09/21/18 Procedure: Right upper extremity AV fistula proximalization Implants: Tapered 4-7 mm PTFE graft Anesthesia: MAC Surgeon: Nura Hernandez MD Estimated blood loss (mL): 150 Operation and Findings: Findings #1 successful proximalization of a right upper extremity AV fistula. #2 there was good thrill into the fistula at the end of the procedure #3 triphasic radial artery, monophasic ulnar artery signals at the end of the procedure. Procedure The patient was taken to the operating room placed supine on the OR table. After adequate sedation the patient was prepped and draped in the standard sterile fashion. Timeout was called with all members in the OR in agreement. 1 % lidocaine was injected in the right axilla. An incision was made at the old scar. Dissection was taken down through the subcutaneous tissues electrocautery. The axillary artery was dissected and encircled with a Silastic loop. 1% lidocaine was injected at the most proximal portion of the AV graft. Dissection was taken down through subcu tissues electrocautery. The graft was dissected circumferentially and encircled Silastic loop. The patient was heparinized. Proximal distal control was obtained on the axillary artery. Arteriotomy is created and tapered 4-7 mm graft was brought into the field and cut to appropriate length. The arterial anastomosis fashioned using a 6-0 Prolene suture and running fashion At this point the medial aspect of the arm was anesthetized using 1% lidocaine. The graft was tunneled. And the graft was cut at appropriate length and the old graft was divided. Created an anastomosis between the new graft and the old graft using 6-0 Prolene suture in the running fashion. At this point was extremely oozing. Multiple topical agents were used she was given protamine and DDAVP. We were able to obtain hemostasis at the end of the procedure. The wound was closed in multiple layers of Vicryl suture followed by Monocryl suture Steri-Strips and sterile dressing was applied. The patient tolerated the procedure well and was taken to recovery in stable condition.
[2018-09-21] MEDS ORDERED: fentaNYL Citrate Inj 100 MCG/2 ML Ampul ONE (17:21)
--- NOTE | 2018-09-21 17:41 | P.PNPL ---
Subjective Interval history: 67 YOWF with CHF,COPD, ch pl eff, DM Admitted with SOB Had increased sob last night Breathing better Cough much better Had revision of RUE AVF Physical Exam Vital signs: Vital Signs 09/20/18 18:00 09/20/18 19:00 09/20/18 20:00 Temperature 98.6 F Pulse Rate 64 62 72 Respiratory Rate 16 Blood Pressure 126/68 Pulse Oximetry 98 94 L 09/20/18 21:00 09/20/18 22:00 09/20/18 22:25 Temperature 98.6 F Pulse Rate 75 80 80 Respiratory Rate 16 Blood Pressure 123/57 L Pulse Oximetry 94 L 09/20/18 23:00 09/21/18 00:00 09/21/18 01:00 Temperature Pulse Rate 79 65 65 Respiratory Rate Blood Pressure Pulse Oximetry 09/21/18 01:55 09/21/18 03:00 09/21/18 04:00 Temperature 98.6 F Pulse Rate 64 65 64 Respiratory Rate 16 Blood Pressure 149/65 H Pulse Oximetry 95 09/21/18 05:00 09/21/18 05:54 09/21/18 07:00 Temperature 97.7 F Pulse Rate 65 66 63 Respiratory Rate 14 Blood Pressure 160/67 H Pulse Oximetry 98 09/21/18 08:00 09/21/18 09:00 09/21/18 10:19 Temperature Pulse Rate 62 60 Respiratory Rate Blood Pressure Pulse Oximetry 95 09/21/18 13:00 Temperature Pulse Rate 65 Respiratory Rate Blood Pressure Pulse Oximetry Intake & Output 09/20/18 09/21/18 09/21/18 18:59 06:59 18:59 Intake Total 600 / 600 250 / 250 Output Total 30 / 30 1650 / 1650 Balance 600 / 600 -30 / -30 -1400 / -1400 Weight 64.4 kg Intake: IV 50 / 50 Ancef 2 GM Premix Inj 2 gm In 50 / 50 50 ml @ 0 mls/hr IV.SIG .STK- [facility] Rx#:[id number] Oral 600 / 600 Anesthesia Amount 200 / 200 Output: Urine 30 / 30 Hemodialysis Amount 1500 / 1500 Estimated Blood Loss 150 / 150 Other: Date of Last Bowel Movement 09/20/18 09/20/18 # Bowel Movements 1 # Incontinent Bowel Movements 2 GENERAL: Elderly WF NAD SKIN: Warm and dry. HEAD: Normocephalic. EYES: No scleral icterus. No injection or drainage. NECK: Supple, trachea midline. No JVD or lymphadenopathy. CARDIOVASCULAR: Regular rate and rhythm without murmurs, gallops, or rubs. RESPIRATORY: Breath sounds equal bilaterally. No accessory muscle use. GASTROINTESTINAL: Abdomen soft, non-tender, nondistended. MUSCULOSKELETAL: No cyanosis, or edema. BACK: Nontender without obvious deformity. No CVA tenderness. Assessment and Plan - Plan IMPRESSION: 1. Respiratory failure. 2. Hypoxia. 3. Morbid obesity. 4. Likely sleep apnea. 5. Osteomyelitis. 6. Pneumonia. 7. Pulmonary edema. 8. Renal insufficiency. PLAN: Supplement [address] effusion, stable Zithro 500 mg po daily Robitussin DM 10 cc q 6 hrs Use Acapella
[2018-09-21] MEDS: Calcium Acetate 667 MG Capsule PO SCH ×2 (18:17→20:09)
[2018-09-21] MEDS: Carvedilol 6.25 MG Tablet PO SCH ×2 (20:06→20:39)
[2018-09-21] MEDS: Insulin Detemir Inj 1,000 UNIT/10 ML Vial SQ SCH ×2 (20:07→20:49)
[2018-09-21] MEDS: Senna/Docusate Sodium 8.6/50 MG Tablet PO SCH ×3 (20:07→20:46)
[2018-09-21] MEDS: Azithromycin 250 MG Tablet PO SCH (20:09)
[2018-09-21] MEDS: Gabapentin 100 MG Capsule PO SCH (20:39)
[2018-09-22] MEDS: guaiFENesin/Dextromethorphan 200 MG/20 MG 10 ML UDC PO SCH ×4 (01:16→17:47)
[2018-09-22 05:26] LABS: Baso # (Auto) 0.1 th/mm3 (0.0-0.2); Baso % (Auto) 0.7 % (0.0-2.0); Eos # (Auto) 0.1 th/mm3 (0.0-0.4); Eos % (Auto) 0.6 % (0.0-4.0); Hematocrit 29.8 % (35.0-46.0); Hemoglobin 9.7 gm/dL (11.6-15.3); Lymph # (Auto) 0.4 th/mm3 (1.0-4.8); Lymph % (Auto) 3.6 % (9.0-44.0); Mean Corpuscular HGB Conc 32.6 % (32.0-36.0); Mean Corpuscular Hemoglobin 30.4 pg (27.0-34.0); Mean Corpuscular Volume 93.4 fL (80.0-100.0); Mean Platelet Volume 8.4 fL (7.0-11.0); Mono # (Auto) 0.6 th/mm3 (0.0-0.9); Mono % (Auto) 6.6 % (0.0-8.0); Neut # (Auto) 8.6 th/mm3 (1.8-7.7); Neut % (Auto) 88.5 % (16.0-70.0); Platelet Count 256 th/mm3 (150-450); Red Blood Count 3.19 mil/mm3 (4.00-5.30); Red Cell Distribution Width 16.5 % (11.6-17.2); White Blood Count 9.7 th/mm3 (4.0-11.0)
[2018-09-22 05:59] LABS: Alanine Aminotransferase 12 U/L (10-53); Albumin 1.9 g/dL (3.4-5.0); Anion Gap 6 meq/L (5-15); Aspartate Aminotransferase 23 U/L (15-37); Blood Urea Nitrogen 25 mg/dL (7-18); Calcium 8.1 mg/dL (8.5-10.1); Carbon Dioxide 32.4 meq/L (21.0-32.0); Chloride 97 meq/L (98-107); Glomerular Filtration Rate 15 mL/min (>89); Glucose,Random 149 mg/dL (74-106); Phosphorus 2.9 mg/dL (2.5-4.9); Potassium 4.6 meq/L (3.5-5.1); Sodium 135 meq/L (136-145)
[2018-09-22 06:02] LABS: Alkaline Phosphatase 121 U/L (45-117); Total Protein 6.1 g/dL (6.4-8.2)
[2018-09-22] MEDS: Azithromycin 250 MG Tablet PO SCH (09:27)
[2018-09-22] MEDS: Insulin Detemir Inj 1,000 UNIT/10 ML Vial SQ SCH ×2 (09:27→21:38)
[2018-09-22] MEDS: Calcium Acetate 667 MG Capsule PO SCH ×3 (09:27→17:47)
[2018-09-22] MEDS: Senna/Docusate Sodium 8.6/50 MG Tablet PO SCH ×2 (09:27→21:34)
[2018-09-22] MEDS: Carvedilol 6.25 MG Tablet PO SCH ×2 (09:27→21:34)
[2018-09-22] MEDS: Insulin NovoLOG Aspart Correctional Sugar Inj SQ SCH ×4 (09:28→21:38)
[2018-09-22] MEDS: Sodium Chloride 0.9% 2 ML Flush BID IV.FLUSH SCH ×2 (09:28→21:39)
[2018-09-22] MEDS: Budesonide-Formoterol 160/4.5 MCG 6 GM Inhaler INH SCH ×2 (09:29→21:39)
--- NOTE | 2018-09-22 09:44 | P.PNVS ---
Subjective Post Op Day #: 1 Procedure: Right upper extremity AV fistula proximalization Subjective/Hospital Course: 67/F s/p Right upper extremity AV fistula proximalization Pt doing well this am and is in good spirits Pt denied hand pain and states her R UE feels much better today Pt w/o SOB Objective Vital Signs / I&O: Vital Signs 09/21/18 10:19 09/21/18 13:00 09/21/18 17:00 Temperature Pulse Rate 65 66 Respiratory Rate Blood Pressure Pulse Oximetry 95 09/21/18 19:00 09/21/18 20:00 09/21/18 21:00 Temperature 98.4 F Pulse Rate 72 70 69 Respiratory Rate 20 Blood Pressure 119/53 L Pulse Oximetry 99 99 09/21/18 22:00 09/21/18 23:00 09/22/18 00:00 Temperature 97.9 F Pulse Rate 72 71 65 Respiratory Rate 18 Blood Pressure 109/53 L Pulse Oximetry 97 09/22/18 01:00 09/22/18 02:00 09/22/18 03:00 Temperature 98.6 F Pulse Rate 66 68 68 Respiratory Rate 22 Blood Pressure 116/65 Pulse Oximetry 100 09/22/18 04:00 09/22/18 05:00 09/22/18 05:52 Temperature Pulse Rate 68 68 66 Respiratory Rate Blood Pressure Pulse Oximetry Intake & Output 09/21/18 09/22/18 09/22/18 18:59 06:59 18:59 Intake Total 490 / 490 480 / 480 Output Total 1650 / 1650 1650 / 1650 Balance -1160 / -1160 -1170 / -1170 Weight 63 kg Intake: IV 50 / 50 Ancef 2 GM Premix Inj 2 gm In 50 / 50 50 ml @ 0 mls/hr IV.SIG .STK- [facility] Rx#:[id number] Oral 240 / 240 480 / 480 Anesthesia Amount 200 / 200 Output: Urine 0 / 0 0 / 0 Hemodialysis Amount 1500 / 1500 1500 / 1500 Estimated Blood Loss 150 / 150 150 / 150 Other: # Voids 1 Date of Last Bowel Movement 09/20/18 # Bowel Movements 0 0 Exam: Multiphasic R Radial pulse heard via Doppler R UE warm with motor intact wound stable to R thumb Laboratory Results - last 24 hr 09/21/18 09/21/18 09/22/18 12:26 20:37 04:35 WBC 9.7 D RBC 3.19 L Hgb 9.7 L Hct 29.8 L MCV 93.4 MCH 30.4 MCHC 32.6 RDW 16.5 Plt Count 256 MPV 8.4 Neut % (Auto) 88.5 H Lymph % (Auto) 3.6 L [place] % (Auto) 6.6 Eos % (Auto) 0.6 Baso % (Auto) 0.7 Neut # (Auto) 8.6 H Lymph # (Auto) 0.4 L [place] # (Auto) 0.6 Eos # (Auto) 0.1 Baso # (Auto) 0.1 WBC Differential . Differential Comment Auto diff final Sodium Potassium Chloride Carbon Dioxide Anion Gap BUN Creatinine Estimated GFR POC Glucose 96 210 H Random Glucose Calcium Phosphorus Magnesium Total Bilirubin AST ALT Alkaline Phosphatase Total Protein Albumin 09/22/18 09/22/18 04:35 07:50 WBC RBC Hgb Hct MCV MCH MCHC RDW Plt Count MPV Neut % (Auto) Lymph % (Auto) [place] % (Auto) Eos % (Auto) Baso % (Auto) Neut # (Auto) Lymph # (Auto) [place] # (Auto) Eos # (Auto) Baso # (Auto) WBC Differential Differential Comment Sodium 135 L Potassium 4.6 Chloride 97 L Carbon Dioxide 32.4 H Anion Gap 6 BUN 25 H Creatinine 3.02 H Estimated GFR 15 L POC Glucose 125 H Random Glucose 149 H Calcium 8.1 L Phosphorus 2.9 Magnesium 2.0 Total Bilirubin 0.2 AST 23 ALT 12 Alkaline Phosphatase 121 H Total Protein 6.1 L Albumin 1.9 L Assessment and Plan - Assessment (1) Steal syndrome of dialysis vascular access Code(s): T82.898A - Other specified complication of vascular prosthetic devices , implants and grafts, initial encounter Status: Acute - Plan 67/F with a Hx of Right upper extremity steal syndrome Pt S/P Right upper extremity AV fistula proximalization POD 1 Pt doing well w/ improved R UE pain UE warm w/ motor intact Dressing I/C/D Plan D/C planning Will arrange out pt f/u Erica Mg NP [facility] [phone] - Attending Attestation I saw and examined the patient, agree with 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
--- NOTE | 2018-09-22 10:22 | P.PNIM ---
Subjective Interval history: This is a 67-year-old female with a PMH of HTN, COPD, Hyperlipidemia, O2 Dependent, h/o CAD, DM and ESRD on HD M/W/F who presented to the ER w/ SOB and non-productive cough x2 days. Recent admit 08/30-09/06/18 for similar complaints , found to have CHF Exacerbation w/ significant left pleural effusion s/p thoracentesis/chest tube, NSTEMI and suspected Sepsis. States she had been doing well after discharge until 2 days ago. Using home Nebulizers w/ minimal relief. Follows w/ Dr. Toro, last HD on Wednesday w/ no complications. Denies fever, chills, chest pain or sick contacts. On arrival, BP 124/78, HR 64, O2 sat 86% on RA, Afebrile. CBC unremarkable. Creatinine 3.0, previous E2.86. BS 771. BNP 2644. Troponin 0 0.03. CXR with chronic pleural effusions left greater than right, finding stable since prior exam. S/p DuoNeb in ER w/ some improvement. 10-15 Patient still reports shortness of breath. Essentially unchanged from yesterday. Awaiting to have dialysis today. 10-16 SHANON called on the patient this morning for blood glucose of 22. She was hard to arouse and diaphoretic. The patient was given 1 amp of D50 and immediately transferred to the [facility] – [place] where I evaluated the patient. Blood glucose improved to 157. She is nauseous and retching. Otherwise is responding appropriately to questions. 10-17 Patient complains of worsening pain on her right thumb. She otherwise feels much better today. 10-18 Plastic surgery note reviewed . Patient reports she is feeling better overall. Breathing more comfortable. 10-19 Patient reports she had more pain on the right thumb earlier during dialysis. Otherwise she reports her breathing is improved. No chest pain. 10-20 Patient says she is feeling alright. Denies any chest pain. Reports shortness of breath overall improved. 10-21 Patient says she is feeling comfortable this morning. Denies any chest pain or shortness of breath. Denies nausea or vomiting. 10-22 to go FOR ANGIOGRAM TODAY AND HD LATER TODAY NEEDS PT AND OT NEEDS TO MOVE MORE DW RN AND PT AND CM head of partner development to eval and treat AM LABS 10- HAD ANGIOGRAM OF RIGHT UE NEEDS SHUNT REVISION NEEDS PT AND OT DW RN AND PT AND CM 09-21 SEEN IN HD TO GO FOR REVISION OF RIGHT UE GRAFT LATER TODAY WITH VASCULAR AM LABS INCREASE ACTIVITY DW RN AND PT AND CM 09-22 HAD REVISION OF RIGHT UE GRAFT ON 09-21 DW RN AND PT HOPEFULLY HOME TOMORROW VS SNF CASE MANAGEMENT FOR HELP AM LABS WANTS TO GO HOME TOMORROW Physical Exam Vital signs: Vital Signs 09/21/18 10:19 09/21/18 13:00 09/21/18 17:00 Temperature Pulse Rate 65 66 Respiratory Rate Blood Pressure Pulse Oximetry 95 09/21/18 19:00 09/21/18 20:00 09/21/18 21:00 Temperature 98.4 F Pulse Rate 72 70 69 Respiratory Rate 20 Blood Pressure 119/53 L Pulse Oximetry 99 99 09/21/18 22:00 09/21/18 23:00 09/22/18 00:00 Temperature 97.9 F Pulse Rate 72 71 65 Respiratory Rate 18 Blood Pressure 109/53 L Pulse Oximetry 97 09/22/18 01:00 09/22/18 02:00 09/22/18 03:00 Temperature 98.6 F Pulse Rate 66 68 68 Respiratory Rate 22 Blood Pressure 116/65 Pulse Oximetry 100 09/22/18 04:00 09/22/18 05:00 09/22/18 05:52 Temperature Pulse Rate 68 68 66 Respiratory Rate Blood Pressure Pulse Oximetry 09/22/18 07:00 09/22/18 08:00 09/22/18 09:00 Temperature Pulse Rate 62 64 66 Respiratory Rate Blood Pressure Pulse Oximetry 09/22/18 10:00 Temperature Pulse Rate 68 Respiratory Rate Blood Pressure Pulse Oximetry Intake & Output 09/21/18 09/22/18 09/22/18 18:59 06:59 18:59 Intake Total 490 / 490 480 / 480 Output Total 1650 / 1650 1650 / 1650 Balance -1160 / -1160 -1170 / -1170 Weight 63 kg Intake: IV 50 / 50 Ancef 2 GM Premix Inj 2 gm In 50 / 50 50 ml @ 0 mls/hr IV.SIG .STK- MED ONE Rx#:[id number] Oral 240 / 240 480 / 480 Anesthesia Amount 200 / 200 Output: Urine 0 / 0 0 / 0 Hemodialysis Amount 1500 / 1500 1500 / 1500 Estimated Blood Loss 150 / 150 150 / 150 Other: # Voids 1 Date of Last Bowel Movement 09/20/18 # Bowel Movements 0 0 Narrative: GENERAL: Alert and oriented. SKIN: Warm and dry. NECK: Supple, trachea midline. No JVD. CARDIOVASCULAR: Regular rate and rhythm without murmurs, gallops, or rubs. RESPIRATORY: Breath sounds diminished equal bilaterally. No accessory muscle use. GASTROINTESTINAL: Abdomen soft, non-tender, nondistended. MUSCULOSKELETAL: No cyanosis, or edema. Small dry wound of the right thumb BACK: Nontender without obvious deformity. No CVA tenderness. Results - Labs CBC & Chem 7: 09/22/18 04:35 09/22/18 04:35 Laboratory Results - last 24 hr 09/21/18 09/21/18 09/22/18 12:26 20:37 04:35 WBC 9.7 D RBC 3.19 L Hgb 9.7 L Hct 29.8 L MCV 93.4 MCH 30.4 MCHC 32.6 RDW 16.5 Plt Count 256 MPV 8.4 Neut % (Auto) 88.5 H Lymph % (Auto) 3.6 L [place] % (Auto) 6.6 Eos % (Auto) 0.6 Baso % (Auto) 0.7 Neut # (Auto) 8.6 H Lymph # (Auto) 0.4 L [place] # (Auto) 0.6 Eos # (Auto) 0.1 Baso # (Auto) 0.1 WBC Differential . Differential Comment Auto diff final Sodium Potassium Chloride Carbon Dioxide Anion Gap BUN Creatinine Estimated GFR POC Glucose 96 210 H Random Glucose Calcium Phosphorus Magnesium Total Bilirubin AST ALT Alkaline Phosphatase Total Protein Albumin 09/22/18 09/22/18 04:35 07:50 WBC RBC Hgb Hct MCV MCH MCHC RDW Plt Count MPV Neut % (Auto) Lymph % (Auto) [place] % (Auto) Eos % (Auto) Baso % (Auto) Neut # (Auto) Lymph # (Auto) [place] # (Auto) Eos # (Auto) Baso # (Auto) WBC Differential Differential Comment Sodium 135 L Potassium 4.6 Chloride 97 L Carbon Dioxide 32.4 H Anion Gap 6 BUN 25 H Creatinine 3.02 H Estimated GFR 15 L POC Glucose 125 H Random Glucose 149 H Calcium 8.1 L Phosphorus 2.9 Magnesium 2.0 Total Bilirubin 0.2 AST 23 ALT 12 Alkaline Phosphatase 121 H Total Protein 6.1 L Albumin 1.9 L - Imaging Chest X-Ray 09/11/18 03:43 CONCLUSION: Chronic pleural effusions and basilar airspace disease, left greater than right. Findings are stable since prior exam. Chest X-Ray 09/13/18 00:00 CONCLUSION: 1. Stable moderate left pleural effusion and associated left lower lobe airspace disease. 2. Worsening right-sided pleural effusion, now [id number] in size, with associated right lower lobe airspace disease. 3. Persistent positive fluid balance. Extremity Arterial Study 09/15/18 00:00 CONCLUSION: 1. Diminished finger brachial indices at each digit most characteristic of steno-occlusive disease in the right upper extremity. Chest X-Ray 09/16/18 11:26 CONCLUSION: Persistent consolidation and moderate-sized left pleural effusion. The right pleural effusion has resolved or has been removed without evidence of pneumothorax Chest X-Ray 09/18/18 00:00 CONCLUSION: Increased opacification in the left lung base which may represent increased infiltrate and/or effusion. - Procedures RIGHT UE ANGIOGRAM AND HD ---- Preoperative Diagnosis: Right upper extremity steal syndrome Postoperative Diagnosis: Right upper extremity steal syndrome Date of procedure: 09/21/18 Procedure: Right upper extremity AV fistula proximalization Implants: Tapered 4-7 mm PTFE graft Anesthesia: MAC Surgeon: Nura Hernandez MD Estimated blood loss (mL): 150 Operation and Findings: Findings #1 successful proximalization of a right upper extremity AV fistula. #2 there was good thrill into the fistula at the end of the procedure #3 triphasic radial artery, monophasic ulnar artery signals at the end of the procedure. Procedure The patient was taken to the operating room placed supine on the OR table. After adequate sedation the patient was prepped and draped in the standard sterile fashion. Timeout was called with all members in the OR in agreement. 1 % lidocaine was injected in the right axilla. An incision was made at the old scar. Dissection was taken down through the subcutaneous tissues electrocautery. The axillary artery was dissected and encircled with a Silastic loop. 1% lidocaine was injected at the most proximal portion of the AV graft. Dissection was taken down through subcu tissues electrocautery. The graft was dissected circumferentially and encircled Silastic loop. The patient was heparinized. Proximal distal control was obtained on the axillary artery. Arteriotomy is created and tapered 4-7 mm graft was brought into the field and cut to appropriate length. The arterial anastomosis fashioned using a 6-0 Prolene suture and running fashion At this point the medial aspect of the arm was anesthetized using 1% lidocaine. The graft was tunneled. And the graft was cut at appropriate length and the old graft was divided. Created an anastomosis between the new graft and the old graft using 6-0 Prolene suture in the running fashion. At this point was extremely oozing. Multiple topical agents were used she was given protamine and DDAVP. We were able to obtain hemostasis at the end of the procedure. The wound was closed in multiple layers of Vicryl suture followed by Monocryl suture Steri-Strips and sterile dressing was applied. The patient tolerated the procedure well and was taken to recovery in stable condition. Documented By: Nura Hernandez MD 09/21/18 1711 Signed By: <Electronically signed by Nura Hernandez MD> 09/21/18 2539 Assessment and Plan - Assessment (1) CHF (congestive heart failure) Code(s): I50.9 - Heart failure, unspecified Status: Acute (2) Pleural effusion Code(s): J90 - Pleural effusion, not elsewhere classified Status: Acute (3) Hypoxia Code(s): R09.02 - Hypoxemia Status: Acute (4) ESRD on dialysis Code(s): N18.6 - End stage renal disease; Z99.2 - Dependence on renal dialysis Status: Acute (5) DM (diabetes mellitus) Code(s): E11.9 - Type 2 diabetes mellitus without complications Status: Acute - Plan 67-year-old female on hemodialysis admitted with acute diastolic CHF. Patient is also a brittle diabetic who presented with blood sugar of 700. She had one episode of acute hypoglycemia. She was transferred to the [facility] – [place] but is now returned to the PCU. CHF: Acute on Chronic. Diastolic. Echo 08/09/18 w/ EF 50-55%, BNP 2644, CXR w / chronic effusions, images reviewed. Continue home Bumex, monitor I/O, appreciate nephrology input. Dialysis as scheduled. Acute symptomatic hypoglycemia/DM: Brittle diabetic, presented with BS in the 700's. Glucose in the 20s on 09/13/18. Received Levemir the night before. Treated with D50 and IVF. - Continue SSI with accuchecks. - Diabetic diet. - Blood glucose spiked in the 300's again. Resume Levemir at a lower dose 10 unit in AM. - Blood glucose better today. Continue to monitor. = Still glucose in the 400s today. Will switch to Levemir 5 units twice daily, and increase sliding scale to moderate. = 09/18. Patient with a glucose of 49 this morning. Have adjusted insulin regimen. Right upper extremity steal syndrome/H/O AV graft: -Appreciate vascular surgery following. Duplex ultrasound ordered. Vascular surgery planning for revision. = 09/18. Plan for angiogram on 09/19 as per vascular surgery. Appreciate assistance. Angiogram today September 19- NEEDS REVISION OF GRAFT 09-21 FOR REVISION OF AV GRAFT LATER TODAY- HAD REVISION ON 09-21 CAD, abnormalities on tele with concerns for Atrial flutter: No cardiovascular complaints. Unsure if she has a history of Afib. - Patient evaluated by Cardiology, Dr. Reddy. tele findings believed to be artifacts - Continue Coreg, Effient, Statin. Monitor on Tele Pleural Effusion: recent admit w/ large left effusion s/p thoracentesis/chest tube, CXR w/ pleural effusions, left greater than right, however stable. COPD -Pulmonology following - Continue current treatment. If Effusion stable. = 09/18. Increased oxygen requirement to 6 L nasal cannula. Will check chest x -ray to monitor effusion. Pulmonology following. Appreciate assistance. Hypoxemia: O2 sat 86% on RA upon arrival, O2 dependent at night per patient, currently O2 sat 94% on 4L NC, monitor closely. DuoNeb prn. -Respiratory status seems to be stable today. = 09/18. Increasing ostial requirement. Will check BNP, repeat chest x-ray. ESRD on HD: M/W/F -Appreciate nephrology following. DVT Prophylaxis: SCD/Teds We will consult facilities maintenance manager regarding decub ulcers and feet WANTS DIET CHANGED AROUND SNF VS HHC NEED CM INPUT AM LABS Code Status: FULL CODE Discussed Condition With: RN AND PT AND CM Discharge Planning: PENDING CLEARANCE BY VASCULAR SURGERY AND NEPHROLOGY
--- NOTE | 2018-09-22 12:35 | P.PNCA ---
Subjective Interval history: Patient denies any chest pain, pressure, palpitations, dizziness, edema or shortness of breath. Patient states that she is feeling so much better. Medications and Allergies Allergies Allergy/AdvReac Type Severity Reaction Status Date / Time propoxyphene Allergy Intermediate RASH Verified 07/18/18 07:41 Home Medications Medication Instructions Recorded Confirmed Type albuterol sulfate [Ventolin HFA] 2 puff INHALATION Q6H PRN 06/03/18 09/11/18 History aspirin 81 mg PO DAILY 06/03/18 09/11/18 History budesonide-formoterol [Symbicort] 2 puff INHALATION BID 06/03/18 09/11/18 History atorvastatin 80 mg PO HS 08/30/18 09/11/18 History insulin detemir U-100 [Levemir 20 unit SUBCUT BID 08/30/18 09/11/18 History FlexTouch U-100 Insuln] mupirocin 1 applic TOPICAL BID 08/30/18 09/11/18 History prasugrel 10 mg PO DAILY 08/30/18 09/11/18 History vit B comp no.[id number]-P-biotin 1 tab PO DAILY 08/30/18 09/11/18 History [Nephro-Bonita Rx] Active Medications: Active Medications Acetaminophen (Tylenol) 650 mg PO Q4H PRN PRN Reason: Temp > 100.4 OR PAIN 1-5 Last Admin: 09/11/18 21:37 Dose: 650 mg Acetaminophen (Tylenol) 650 mg PO UNSCH PRN PRN Reason: SEE LABEL COMMENTS Al Hydroxide/Mg Hydroxide (Milk Of Leonidas Luke) 30 ml PO Q12H PRN PRN Reason: Mild Constipation Albuterol (Duoneb Neb (Prn)) 1 ampul NEB Q4HR NEB PRN PRN Reason: SOB/WHEEZING Last Admin: 09/19/18 01:48 Dose: 1 ampul Aspirin (Ecotrin) 81 mg PO DAILY [facility] Last Admin: 09/22/18 09:28 Dose: 81 mg Atorvastatin Calcium (Lipitor) 80 mg PO HS [facility] Last Admin: 09/21/18 20:38 Dose: 80 mg Azithromycin (Zithromax) 500 mg PO DAILY [facility] Last Admin: 09/22/18 09:27 Dose: 500 mg Bisacodyl (Dulcolax Supp) 10 mg RECTAL DAILY PRN PRN Reason: SEVERE CONSITIPATION Budesonide/Formoterol Fumarate (Symbicort 160/4.5 Mcg Inh) 2 puff INH BID [facility] Last Admin: 09/22/18 09:29 Dose: 2 puff Bumetanide (Bumex) 1 mg PO BID [facility] Last Admin: 09/22/18 09:27 Dose: 1 mg Calcium Acetate (Phoslo) 667 mg PO TID [facility] Last Admin: 09/22/18 09:27 Dose: 667 mg Carvedilol (Coreg) 6.25 mg PO BID [facility] Last Admin: 09/22/18 09:27 Dose: 6.25 mg Clonidine HCl (Catapres) 0.1 mg PO UNSCH PRN PRN Reason: SEE LABEL COMMENTS Dextrose (D50w Vial) 50 ml IV.PUSH UNSCH PRN PRN Reason: PER HYPOGLYCEMIA PROTOCOL Last Admin: 09/13/18 09:00 Dose: 50 ml Diphenhydramine HCl (Benadryl) 25 mg PO UNSCH PRN PRN Reason: SEE LABEL COMMENTS Epoetin Low (Epogen Inj) 6,000 unit IV.PUSH UNSCH PRN PRN Reason: SEE LABEL COMMENTS Last Admin: 09/19/18 19:04 Dose: 6,000 unit Gabapentin (Neurontin) 100 mg PO [facility] Last Admin: 09/21/18 20:39 Dose: 100 mg Gelatin (Gelfoam 12 Mm/7 Mm Topical) 1 foam TOPICAL PRN PRN PRN Reason: help stop bleeding from site Last Admin: 09/16/18 11:27 Dose: 1 foam Gentamicin Sulfate (Gentamicin Inj) 20 mg OTHER WITH DIALYSIS PRN PRN Reason: Dwell Gentamycin Lock Glucagon (Glucagon Inj) 1 mg OTHER PRN PRN PRN Reason: for Hypoglycemia Protocol Guaifenesin/Dextromethorphan (Robitussin Dm 200/20 Mg/10 Ml Liq) 10 ml PO Q6H [facility] Last Admin: 09/22/18 11:56 Dose: 10 ml Heparin Sodium (Porcine) (Heparin Inj) 8,000 units OTHER WITH DIALYSIS PRN PRN Reason: for machine prime Heparin Sodium (Porcine) (Heparin Inj) 1,000 units OTHER WITH DIALYSIS PRN PRN Reason: Dwell Heparin to Fill Catheter Hydralazine HCl (Apresoline) 100 mg PO TID [facility] Last Admin: 09/22/18 09:27 Dose: 100 mg Albumin Human (Flexbumin 25% Inj) 100 mls @ 60 mls/hr IV.SIG WITH DIALYSIS PRN PRN Reason: hypotension / volume replace Sodium Chloride (Ns Inj) 1,000 mls @ 0 mls/hr OTHER .Q0M PRN PRN Reason: for prime and rinse back Sodium Chloride (Ns Inj) 1,000 mls @ 200 mls/hr OTHER .Q5H PRN PRN Reason: for dialyzer flush PRN Sodium Chloride (Ns Inj) 1,000 mls @ 0 mls/hr IV.CONT .Q0M PRN PRN Reason: hypotension / volume replace Desmopressin Acetate 19.32 mcg (/ Sodium Chloride) 54.83 mls @ 109.66 mls/hr IV.SIG DIGITAL RETOUCHER [facility] Last Admin: 09/21/18 16:43 Dose: Not Given Insulin Aspart (Novolog Insulin Correctional Sugar Inj) 0 unit SQ ACHS [facility]; Protocol Last Admin: 09/22/18 11:56 Dose: Not Given Insulin Detemir (Levemir Inj) 5 unit SQ BID [facility] Last Admin: 09/22/18 09:27 Dose: 5 unit Lactulose (Lactulose Liq) 30 ml PO DAILY PRN PRN Reason: SEVERE CONSITIPATION Mannitol (Mannitol Inj) 12.5 gm IV.PUSH UNSCH PRN PRN Reason: hypotension / volume replace Nifedipine (Procardia Xl) 90 mg PO DAILY [facility] Last Admin: 09/22/18 09:27 Dose: 90 mg Nitroglycerin (Nitrostat Sl) 0.4 mg SL Q5M PRN PRN Reason: CHEST PAIN Ondansetron HCl (Zofran Inj) 4 mg IV.PUSH Q6H PRN PRN Reason: NAUSEA OR VOMITING Last Admin: 09/13/18 14:28 Dose: 4 mg Ondansetron HCl (Zofran Inj) 4 mg IV.PUSH UNSCH PRN PRN Reason: NAUSEA OR VOMITING Oxycodone/Acetaminophen (Percocet 5/325 Mg) 1 tab PO Q4H PRN PRN Reason: PAIN SCALE 6 TO 10 Last Admin: 09/22/18 09:28 Dose: 1 tab Prasugrel (Effient) 10 mg PO DAILY [facility] Last Admin: 09/22/18 09:27 Dose: 10 mg Senna/Docusate Sodium (Jocelyn-Colace) 1 tab PO BID [facility] Last Admin: 09/22/18 09:27 Dose: 1 tab Sennosides (Senokot) 17.2 mg PO Q12H PRN PRN Reason: Moderate Constipation Sodium Chloride (Ns Flush) 5 ml IV.FLUSH PRN PRN PRN Reason: flush each lumen during HD Sodium Chloride (Ns Flush) 2 ml IV.FLUSH BID [facility] Last Admin: 09/22/18 09:28 Dose: 2 ml Sodium Chloride (Ns Flush) 2 ml IV.FLUSH PRN PRN PRN Reason: FLUSH AFTER USING IV ACCESS Physical Exam Vital signs: Vital Signs 09/21/18 13:00 09/21/18 17:00 09/21/18 19:00 Temperature 98.4 F Pulse Rate 65 66 72 Respiratory Rate 20 Blood Pressure 119/53 L Pulse Oximetry 99 09/21/18 20:00 09/21/18 21:00 09/21/18 22:00 Temperature Pulse Rate 70 69 72 Respiratory Rate Blood Pressure Pulse Oximetry 99 09/21/18 23:00 09/22/18 00:00 09/22/18 01:00 Temperature 97.9 F Pulse Rate 71 65 66 Respiratory Rate 18 Blood Pressure 109/53 L Pulse Oximetry 97 09/22/18 02:00 09/22/18 03:00 09/22/18 04:00 Temperature 98.6 F Pulse Rate 68 68 68 Respiratory Rate 22 Blood Pressure 116/65 Pulse Oximetry 100 09/22/18 05:00 09/22/18 05:52 09/22/18 07:00 Temperature 97.3 F L Pulse Rate 68 66 69 Respiratory Rate 16 Blood Pressure 174/67 H Pulse Oximetry 96 09/22/18 08:00 09/22/18 09:00 09/22/18 10:00 Temperature Pulse Rate 64 66 68 Respiratory Rate Blood Pressure Pulse Oximetry 96 09/22/18 11:00 09/22/18 12:00 Temperature 97.9 F Pulse Rate 64 62 Respiratory Rate 18 Blood Pressure 94/48 L Pulse Oximetry 99 Intake & Output 09/21/18 09/22/18 09/22/18 18:59 06:59 18:59 Intake Total 490 / 490 480 / 480 Output Total 1650 / 1650 1650 / 1650 Balance -1160 / -1160 -1170 / -1170 Weight 63 kg Intake: IV 50 / 50 Ancef 2 GM Premix Inj 2 gm In 50 / 50 50 ml @ 0 mls/hr IV.SIG .STK- MED ONE Rx#:[id number] Oral 240 / 240 480 / 480 Anesthesia Amount 200 / 200 Output: Urine 0 / 0 0 / 0 Hemodialysis Amount 1500 / 1500 1500 / 1500 Estimated Blood Loss 150 / 150 150 / 150 Other: # Voids 1 Date of Last Bowel Movement 09/20/18 09/21/18 # Bowel Movements 0 0 - Constitutional no acute distress - Routine HEENT Exam Head: Present: normocephalic Eye: Present: PERRL ENT: Present: mucous membranes moist - Routine Neck Exam Present: full ROM - Routine Respiratory Exam Present: rhonchi, distant breath sounds Comments: Rhonchi throughout bilaterally - Routine Cardiovascular Exam Present: S1, S2. Absent: murmur, gallop, rubs - Routine Abdominal Exam Present: normoactive bowel sounds - Routine Extremities Exam Present: full ROM, pulses intact, normal capillary refill, AV fistula. Absent: cyanosis, clubbing, edema Comments: Dressing to the right upper arm post AV fistula proximalization procedure yesterday. - Routine Skin Exam Present: intact - Routine Neurological Exam Present: oriented X3 - Detailed Neurological Exam: Coma Scale Eye Opening: Spontaneous Verbal Response: Oriented Motor Response: Obey commands [place] Coma Scale Total: 15 - Routine Psychiatric Exam Present: normal affect Results 09/22/18 04:35 09/22/18 04:35 Cardiac Enzymes 09/21/18 09/22/18 Range/Units 05:58 04:35 AST 18 23 (15-37) U/L CBC 09/21/18 09/22/18 Range/Units 05:58 04:35 WBC 4.9 9.7 D (4.0-11.0) th/mm3 RBC 3.77 L 3.19 L (4.00-5.30) mil/mm3 Hgb 11.2 L 9.7 L (11.6-15.3) gm/dL Hct 35.5 29.8 L (35.0-46.0) % Plt Count 265 256 (150-450) th/mm3 Neut # (Auto) 3.1 8.6 H (1.8-7.7) th/mm3 Lymph # (Auto) 1.2 0.4 L (1.0-4.8) th/mm3 [place] # (Auto) 0.5 0.6 (0.0-0.9) th/mm3 Eos # (Auto) 0.1 0.1 (0.0-0.4) th/mm3 Baso # (Auto) 0.1 0.1 (0.0-0.2) th/mm3 Comprehensive Metabolic Panel 09/21/18 09/22/18 Range/Units 05:58 04:35 Sodium 136 135 L (136-145) meq/L Potassium 4.2 4.6 (3.5-5.1) meq/L Chloride 98 97 L (98-107) meq/L Carbon Dioxide 33.2 H 32.4 H (21.0-32.0) meq/L BUN 33 H 25 H (7-18) mg/dL Creatinine 3.35 H 3.02 H (0.50-1.00) mg/dL Calcium 8.2 L 8.1 L (8.5-10.1) mg/dL AST 18 23 (15-37) U/L ALT 12 12 (10-53) U/L Alkaline Phosphatase 120 H 121 H (45-117) U/L Total Protein 6.1 L 6.1 L (6.4-8.2) g/dL Albumin 1.8 L 1.9 L (3.4-5.0) g/dL Intake and Output 09/21/18 09/22/18 09/22/18 22:59 06:59 14:59 Intake Total 440 / 440 480 / 480 Output Total 150 / 150 1650 / 1650 Balance 290 / 290 -1170 / -1170 Intake: Oral 240 / 240 480 / 480 Anesthesia Amount 200 / 200 Output: Urine 0 / 0 0 / 0 Hemodialysis Amount 1500 / 1500 Estimated Blood Loss 150 / 150 150 / 150 Other: # Voids 1 Date of Last Bowel Movement 09/20/18 09/20/18 09/21/18 # Bowel Movements 0 0 Weight 63 kg Assessment and Plan - Assessment (1) DKA (diabetic ketoacidoses) Code(s): E13.10 - Other specified diabetes mellitus with ketoacidosis without coma Status: Acute (2) Acute UTI Code(s): N39.0 - Urinary tract infection, site not specified Status: Acute (3) ESRD (end stage renal disease) on dialysis Code(s): N18.6 - End stage renal disease; Z99.2 - Dependence on renal dialysis Status: Acute (4) Diabetes Code(s): E11.9 - Type 2 diabetes mellitus without complications Status: Acute (5) Hypertension Code(s): I10 - Essential (primary) hypertension Status: Acute (6) Pain and swelling of right upper extremity Code(s): M79.601 - Pain in right arm; M79.89 - Other specified soft tissue disorders Status: Acute (7) Fluid overload Code(s): E87.70 - Fluid overload, unspecified Status: Acute - Plan Patient has dressing to the right upper arm status post revision of the right upper extremity AVF. Patient continues to remain stable from cardiac standpoint, continue with current cardiac treatment plan. Patient scheduled for dialysis tomorrow. We will continue to follow the patient during her hospitalization and see her back for follow-up in our office post discharge. Patient was seen and evaluated by Dr. Reddy who participated in care, management and decision-making. - Attending Attestation Patient seen and examined. I reviewed and agree with the evaluation and plan as presented. No new cardiac issues. Continue current program. Increase activity. Anticipate discharge soon. (1) DKA (diabetic ketoacidoses) Qualifiers: Diabetes mellitus type: type 2 Diabetes mellitus complication detail: without coma Qualified Code(s): E11.10 - Type 2 diabetes mellitus with ketoacidosis without coma (4) Diabetes Qualifiers: Diabetes mellitus terminal superintendent insulin use: with terminal superintendent use (7) Fluid overload Qualifiers: Hypervolemia type: unspecified Qualified Code(s): E87.70 - Fluid overload, unspecified
--- NOTE | 2018-09-22 17:22 | P.PNNP ---
Subjective Interval history: Patient doing well. Wanting to be discharged home tomorrow. Right hand pain is improving. Denies any shortness of breath or chest pain. Physical Exam Vital signs: Vital Signs 09/21/18 19:00 09/21/18 20:00 09/21/18 21:00 Temperature 98.4 F Pulse Rate 72 70 69 Respiratory Rate 20 Blood Pressure 119/53 L Pulse Oximetry 99 99 09/21/18 22:00 09/21/18 23:00 09/22/18 00:00 Temperature 97.9 F Pulse Rate 72 71 65 Respiratory Rate 18 Blood Pressure 109/53 L Pulse Oximetry 97 09/22/18 01:00 09/22/18 02:00 09/22/18 03:00 Temperature 98.6 F Pulse Rate 66 68 68 Respiratory Rate 22 Blood Pressure 116/65 Pulse Oximetry 100 09/22/18 04:00 09/22/18 05:00 09/22/18 05:52 Temperature Pulse Rate 68 68 66 Respiratory Rate Blood Pressure Pulse Oximetry 09/22/18 07:00 09/22/18 08:00 09/22/18 09:00 Temperature 97.3 F L Pulse Rate 69 64 66 Respiratory Rate 16 Blood Pressure 174/67 H Pulse Oximetry 96 96 09/22/18 10:00 09/22/18 11:00 09/22/18 12:00 Temperature 97.9 F Pulse Rate 68 64 62 Respiratory Rate 18 Blood Pressure 94/48 L Pulse Oximetry 99 09/22/18 13:00 09/22/18 13:28 09/22/18 14:00 Temperature Pulse Rate 60 63 Respiratory Rate Blood Pressure 137/56 L Pulse Oximetry 09/22/18 15:00 09/22/18 16:00 Temperature 98 F Pulse Rate 67 64 Respiratory Rate 18 Blood Pressure 137/65 Pulse Oximetry 96 Intake & Output 09/21/18 09/22/18 09/22/18 18:59 06:59 18:59 Intake Total 490 / 490 480 / 480 800 / 800 Output Total 1650 / 1650 1650 / 1650 Balance -1160 / -1160 -1170 / -1170 800 / 800 Weight 63 kg Intake: IV 50 / 50 Ancef 2 GM Premix Inj 2 gm In 50 / 50 50 ml @ 0 mls/hr IV.SIG .STK- MED ONE Rx#:[id number] Oral 240 / 240 480 / 480 800 / 800 Anesthesia Amount 200 / 200 Output: Urine 0 / 0 0 / 0 Hemodialysis Amount 1500 / 1500 1500 / 1500 Estimated Blood Loss 150 / 150 150 / 150 Other: # Voids 1 Date of Last Bowel Movement 09/20/18 09/21/18 # Bowel Movements 0 0 Narrative: GENERAL: Alert and oriented. SKIN: Warm and dry. NECK: Supple, trachea midline. No JVD. CARDIOVASCULAR: Regular rate and rhythm without murmurs, gallops, or rubs. Right AVG RESPIRATORY: Breath sounds diminished equal bilaterally. No accessory muscle use. GASTROINTESTINAL: Abdomen soft, non-tender, nondistended. MUSCULOSKELETAL: No cyanosis, or edema. Small dry wound of the right thumb BACK: Nontender without obvious deformity. No CVA tenderness. Assessment and Plan - Assessment (1) ESRD (end stage renal disease) on dialysis Code(s): N18.6 - End stage renal disease; Z99.2 - Dependence on renal dialysis Status: Acute Plan: ESRD on hemodialysis on Wednesday, Wednesday and Wednesday. High protein diet Continue PhosLo Avoid IVF administration Epogen with dialysis Hemodialysis tomorrow will remove fluid as tolerated (2) Fluid overload Code(s): E87.70 - Fluid overload, unspecified Status: Acute Qualifiers: Hypervolemia type: unspecified Qualified Code(s): E87.70 - Fluid overload, unspecified Plan: Stable, continue UF with HD (3) Hypertension Code(s): I10 - Essential (primary) hypertension Status: Acute Plan: Well controlled, Will monitor
--- NOTE | 2018-09-22 17:48 | P.PNPL ---
Subjective Interval history: 67 YOWF with CHF,COPD, ch pl eff, DM Admitted with SOB Had increased sob last night Breathing better Cough much better Gets out of bed with PT Was on clear liq, had episode of hypoglycemia Physical Exam Vital signs: Vital Signs 09/21/18 19:00 09/21/18 20:00 09/21/18 21:00 Temperature 98.4 F Pulse Rate 72 70 69 Respiratory Rate 20 Blood Pressure 119/53 L Pulse Oximetry 99 99 09/21/18 22:00 09/21/18 23:00 09/22/18 00:00 Temperature 97.9 F Pulse Rate 72 71 65 Respiratory Rate 18 Blood Pressure 109/53 L Pulse Oximetry 97 09/22/18 01:00 09/22/18 02:00 09/22/18 03:00 Temperature 98.6 F Pulse Rate 66 68 68 Respiratory Rate 22 Blood Pressure 116/65 Pulse Oximetry 100 09/22/18 04:00 09/22/18 05:00 09/22/18 05:52 Temperature Pulse Rate 68 68 66 Respiratory Rate Blood Pressure Pulse Oximetry 09/22/18 07:00 09/22/18 08:00 09/22/18 09:00 Temperature 97.3 F L Pulse Rate 69 64 66 Respiratory Rate 16 Blood Pressure 174/67 H Pulse Oximetry 96 96 09/22/18 10:00 09/22/18 11:00 09/22/18 12:00 Temperature 97.9 F Pulse Rate 68 64 62 Respiratory Rate 18 Blood Pressure 94/48 L Pulse Oximetry 99 09/22/18 13:00 09/22/18 13:28 09/22/18 14:00 Temperature Pulse Rate 60 63 Respiratory Rate Blood Pressure 137/56 L Pulse Oximetry 09/22/18 15:00 09/22/18 16:00 Temperature 98 F Pulse Rate 67 64 Respiratory Rate 18 Blood Pressure 137/65 Pulse Oximetry 96 Intake & Output 09/21/18 09/22/18 09/22/18 18:59 06:59 18:59 Intake Total 490 / 490 480 / 480 800 / 800 Output Total 1650 / 1650 1650 / 1650 Balance -1160 / -1160 -1170 / -1170 800 / 800 Weight 63 kg Intake: IV 50 / 50 Ancef 2 GM Premix Inj 2 gm In 50 / 50 50 ml @ 0 mls/hr IV.SIG .STK- MED ONE Rx#:[id number] Oral 240 / 240 480 / 480 800 / 800 Anesthesia Amount 200 / 200 Output: Urine 0 / 0 0 / 0 Hemodialysis Amount 1500 / 1500 1500 / 1500 Estimated Blood Loss 150 / 150 150 / 150 Other: # Voids 1 Date of Last Bowel Movement 09/20/18 09/21/18 # Bowel Movements 0 0 GENERAL: Elderly wf NAD SKIN: Warm and dry. HEAD: Normocephalic. EYES: No scleral icterus. No injection or drainage. NECK: Supple, trachea midline. No JVD or lymphadenopathy. CARDIOVASCULAR: Regular rate and rhythm without murmurs, gallops, or rubs. RESPIRATORY: Breath sounds equal bilaterally. No accessory muscle use. GASTROINTESTINAL: Abdomen soft, non-tender, nondistended. MUSCULOSKELETAL: No cyanosis, or edema. BACK: Nontender without obvious deformity. No CVA tenderness. Assessment and Plan - Plan IMPRESSION: 1. Respiratory failure. 2. Hypoxia. 3. Morbid obesity. 4. Likely sleep apnea. 5. Osteomyelitis. 6. Pneumonia. 7. Pulmonary edema. 8. Renal insufficiency. PLAN: Supplement [address] effusion, stable Zithro 500 mg po daily Robitussin DM 10 cc q 6 hrs Use Acapella DC plans underway for home
[2018-09-22] MEDS: Gabapentin 100 MG Capsule PO SCH (21:34)
[2018-09-23] MEDS: guaiFENesin/Dextromethorphan 200 MG/20 MG 10 ML UDC PO SCH ×3 (01:23→12:27)
[2018-09-23 04:33] LABS: Baso # (Auto) 0.1 th/mm3 (0.0-0.2); Baso % (Auto) 1.3 % (0.0-2.0); Eos # (Auto) 0.2 th/mm3 (0.0-0.4); Eos % (Auto) 3.7 % (0.0-4.0); Hematocrit 28.7 % (35.0-46.0); Hemoglobin 9.3 gm/dL (11.6-15.3); Lymph # (Auto) 0.9 th/mm3 (1.0-4.8); Lymph % (Auto) 15.9 % (9.0-44.0); Mean Corpuscular HGB Conc 32.4 % (32.0-36.0); Mean Corpuscular Hemoglobin 30.4 pg (27.0-34.0); Mean Corpuscular Volume 93.9 fL (80.0-100.0); Mean Platelet Volume 7.9 fL (7.0-11.0); Mono # (Auto) 0.5 th/mm3 (0.0-0.9); Mono % (Auto) 9.8 % (0.0-8.0); Neut # (Auto) 3.7 th/mm3 (1.8-7.7); Neut % (Auto) 69.3 % (16.0-70.0); Platelet Count 225 th/mm3 (150-450); Red Blood Count 3.06 mil/mm3 (4.00-5.30); Red Cell Distribution Width 16.7 % (11.6-17.2); White Blood Count 5.3 th/mm3 (4.0-11.0)
[2018-09-23 05:02] LABS: Albumin 2.2 g/dL (3.4-5.0); Anion Gap 7 meq/L (5-15); Aspartate Aminotransferase 21 U/L (15-37); Blood Urea Nitrogen 31 mg/dL (7-18); Calcium 8.2 mg/dL (8.5-10.1); Chloride 95 meq/L (98-107); Glomerular Filtration Rate 13 mL/min (>89); Glucose,Random 216 mg/dL (74-106); Magnesium 2.2 mg/dL (1.5-2.5); Potassium 5.2 meq/L (3.5-5.1); Sodium 133 meq/L (136-145)
[2018-09-23 05:03] LABS: Alanine Aminotransferase 8 U/L (10-53); Phosphorus 3.3 mg/dL (2.5-4.9)
[2018-09-23 05:06] LABS: Alkaline Phosphatase 113 U/L (45-117); Total Protein 5.9 g/dL (6.4-8.2)
[2018-09-23] MEDS: Insulin NovoLOG Aspart Correctional Sugar Inj SQ SCH ×2 (08:52→13:00)
[2018-09-23] MEDS: Insulin Detemir Inj 1,000 UNIT/10 ML Vial SQ SCH (09:05)
[2018-09-23] MEDS: Carvedilol 6.25 MG Tablet PO SCH ×2 (09:05→13:14)
--- NOTE | 2018-09-23 09:05 | P.PNVS ---
Subjective Subjective/Hospital Course: 67/F s/p Right upper extremity AV fistula proximalization Pt doing well this am and is in good spirits Pt denied hand pain and states her R UE feels much better today Pt w/o SOB Objective Vital Signs / I&O: Vital Signs 09/22/18 10:00 09/22/18 11:00 09/22/18 12:00 Temperature 97.9 F Pulse Rate 68 64 62 Respiratory Rate 18 Blood Pressure 94/48 L Pulse Oximetry 99 09/22/18 13:00 09/22/18 13:28 09/22/18 14:00 Temperature Pulse Rate 60 63 Respiratory Rate Blood Pressure 137/56 L Pulse Oximetry 09/22/18 15:00 09/22/18 16:00 09/22/18 17:00 Temperature 98 F Pulse Rate 67 64 68 Respiratory Rate 18 Blood Pressure 137/65 Pulse Oximetry 96 09/22/18 17:54 09/22/18 19:00 09/22/18 20:00 Temperature 97.7 F Pulse Rate 64 64 64 Respiratory Rate 16 Blood Pressure 117/56 L Pulse Oximetry 97 97 09/22/18 21:00 09/22/18 22:00 09/22/18 22:42 Temperature 97.9 F Pulse Rate 62 64 65 Respiratory Rate 16 Blood Pressure 129/59 L Pulse Oximetry 98 09/22/18 23:00 09/23/18 00:00 09/23/18 01:00 Temperature Pulse Rate 66 68 68 Respiratory Rate Blood Pressure Pulse Oximetry 09/23/18 02:00 09/23/18 03:00 09/23/18 04:00 Temperature 98.1 F Pulse Rate 70 71 70 Respiratory Rate 18 Blood Pressure 131/60 Pulse Oximetry 97 09/23/18 05:00 09/23/18 06:00 Temperature Pulse Rate 72 72 Respiratory Rate Blood Pressure Pulse Oximetry Intake & Output 09/22/18 09/23/18 09/23/18 18:59 06:59 18:59 Intake Total 800 / 800 240 / 240 Balance 800 / 800 240 / 240 Weight 64.5 kg Intake: Oral 800 / 800 240 / 240 Other: Date of Last Bowel Movement 09/21/18 Physical Exam: Right upper extremity wound is clean dry intact. There is ecchymosis around the tunnel with no evidence of palpable hematoma. Multiphasic right radial signal. And a monophasic ulnar signal. Laboratory Results - last 24 hr 09/22/18 09/22/18 09/22/18 11:47 17:19 17:37 WBC RBC Hgb Hct MCV MCH MCHC RDW Plt Count MPV Neut % (Auto) Lymph % (Auto) [place] % (Auto) Eos % (Auto) Baso % (Auto) Neut # (Auto) Lymph # (Auto) [place] # (Auto) Eos # (Auto) Baso # (Auto) WBC Differential Differential Comment Sodium Potassium Chloride Carbon Dioxide Anion Gap BUN Creatinine Estimated GFR POC Glucose 73 45 L* 59 L Random Glucose Calcium Phosphorus Magnesium Total Bilirubin AST ALT Alkaline Phosphatase Total Protein Albumin 09/22/18 09/22/18 09/22/18 17:51 18:15 18:40 WBC RBC Hgb Hct MCV MCH MCHC RDW Plt Count MPV Neut % (Auto) Lymph % (Auto) [place] % (Auto) Eos % (Auto) Baso % (Auto) Neut # (Auto) Lymph # (Auto) [place] # (Auto) Eos # (Auto) Baso # (Auto) WBC Differential Differential Comment Sodium Potassium Chloride Carbon Dioxide Anion Gap BUN Creatinine Estimated GFR POC Glucose 68 91 92 Random Glucose Calcium Phosphorus Magnesium Total Bilirubin AST ALT Alkaline Phosphatase Total Protein Albumin 09/22/18 09/23/18 09/23/18 21:37 04:20 04:20 WBC 5.3 RBC 3.06 L Hgb 9.3 L Hct 28.7 L MCV 93.9 MCH 30.4 MCHC 32.4 RDW 16.7 Plt Count 225 MPV 7.9 Neut % (Auto) 69.3 Lymph % (Auto) 15.9 [place] % (Auto) 9.8 H Eos % (Auto) 3.7 Baso % (Auto) 1.3 Neut # (Auto) 3.7 Lymph # (Auto) 0.9 L [place] # (Auto) 0.5 Eos # (Auto) 0.2 Baso # (Auto) 0.1 WBC Differential . Differential Comment Auto diff final Sodium 133 L Potassium 5.2 H Chloride 95 L Carbon Dioxide 31.0 Anion Gap 7 BUN 31 H Creatinine 3.49 H Estimated GFR 13 L POC Glucose 118 H Random Glucose 216 H Calcium 8.2 L Phosphorus 3.3 Magnesium 2.2 Total Bilirubin 0.3 AST 21 ALT 8 L Alkaline Phosphatase 113 Total Protein 5.9 L Albumin 2.2 L 09/23/18 08:05 WBC RBC Hgb Hct MCV MCH MCHC RDW Plt Count MPV Neut % (Auto) Lymph % (Auto) [place] % (Auto) Eos % (Auto) Baso % (Auto) Neut # (Auto) Lymph # (Auto) [place] # (Auto) Eos # (Auto) Baso # (Auto) WBC Differential Differential Comment Sodium Potassium Chloride Carbon Dioxide Anion Gap BUN Creatinine Estimated GFR POC Glucose 293 H Random Glucose Calcium Phosphorus Magnesium Total Bilirubin AST ALT Alkaline Phosphatase Total Protein Albumin Assessment and Plan - Assessment (1) Steal syndrome of dialysis vascular access Code(s): T82.898A - Other specified complication of vascular prosthetic devices , implants and grafts, initial encounter Status: Acute - Plan Steal syndrome seems resolved. Okay to use upper extremity official hemodialysis. Stable for discharge from vascular surgery standpoint
[2018-09-23] MEDS: Budesonide-Formoterol 160/4.5 MCG 6 GM Inhaler INH SCH ×2 (09:06→13:16)
[2018-09-23] MEDS: Sodium Chloride 0.9% 2 ML Flush BID IV.FLUSH SCH (09:06)
[2018-09-23] MEDS: Azithromycin 250 MG Tablet PO SCH ×2 (09:06→13:18)
[2018-09-23] MEDS: Calcium Acetate 667 MG Capsule PO SCH ×2 (09:06→13:00)
[2018-09-23] MEDS: Senna/Docusate Sodium 8.6/50 MG Tablet PO SCH ×2 (09:06→13:15)
--- NOTE | 2018-09-23 09:54 | P.PNIM ---
Subjective Interval history: This is a 67-year-old female with a PMH of HTN, COPD, Hyperlipidemia, O2 Dependent, h/o CAD, DM and ESRD on HD M/W/F who presented to the ER w/ SOB and non-productive cough x2 days. Recent admit 08/30-09/06/18 for similar complaints , found to have CHF Exacerbation w/ significant left pleural effusion s/p thoracentesis/chest tube, NSTEMI and suspected Sepsis. States she had been doing well after discharge until 2 days ago. Using home Nebulizers w/ minimal relief. Follows w/ Dr. Toro, last HD on Wednesday w/ no complications. Denies fever, chills, chest pain or sick contacts. On arrival, BP 124/78, HR 64, O2 sat 86% on RA, Afebrile. CBC unremarkable. Creatinine 3.0, previous E2.86. BS 771. BNP 2644. Troponin 0 0.03. CXR with chronic pleural effusions left greater than right, finding stable since prior exam. S/p DuoNeb in ER w/ some improvement. 10-15 Patient still reports shortness of breath. Essentially unchanged from yesterday. Awaiting to have dialysis today. 10-16 SHANON called on the patient this morning for blood glucose of 22. She was hard to arouse and diaphoretic. The patient was given 1 amp of D50 and [place] [facility] [place]. Blood glucose improved to 157. She is nauseous and retching. Otherwise is responding appropriately to questions. 10-17 Patient complains of worsening pain on her right thumb. She otherwise feels much better today. 10-18 Plastic surgery note reviewed . Patient reports she is feeling better overall. Breathing more comfortable. 10-19 Patient reports she had more pain on the right thumb earlier during dialysis. Otherwise she reports her breathing is improved. No chest pain. 10-20 Patient says she is feeling alright. Denies any chest pain. Reports shortness of breath overall improved. 10-21 Patient says she is feeling comfortable this morning. Denies any chest pain or shortness of breath. Denies nausea or vomiting. 10-22 to go FOR ANGIOGRAM TODAY AND HD LATER TODAY NEEDS PT AND OT NEEDS TO MOVE MORE DW RN AND PT AND CM java portal developer to eval and treat AM LABS 10- HAD ANGIOGRAM OF RIGHT UE NEEDS SHUNT REVISION NEEDS PT AND OT DW RN AND PT AND CM 09-21 SEEN IN HD TO GO FOR REVISION OF RIGHT UE GRAFT LATER TODAY WITH VASCULAR AM LABS INCREASE ACTIVITY DW RN AND PT AND CM 09-22 HAD REVISION OF RIGHT UE GRAFT ON 09-21 DW RN AND PT HOPEFULLY HOME TOMORROW VS SNF CASE MANAGEMENT FOR HELP AM LABS WANTS TO GO HOME TOMORROW 09-23 SEEN IN HD GRAFT WORKING WELL DW PT AND RN AND CM AND SURGERY DC TO HOME TODAY WANTS PAIN MEDS Physical Exam Vital signs: Vital Signs 09/22/18 10:00 09/22/18 11:00 09/22/18 12:00 Temperature 97.9 F Pulse Rate 68 64 62 Respiratory Rate 18 Blood Pressure 94/48 L Pulse Oximetry 99 09/22/18 13:00 09/22/18 13:28 09/22/18 14:00 Temperature Pulse Rate 60 63 Respiratory Rate Blood Pressure 137/56 L Pulse Oximetry 09/22/18 15:00 09/22/18 16:00 09/22/18 17:00 Temperature 98 F Pulse Rate 67 64 68 Respiratory Rate 18 Blood Pressure 137/65 Pulse Oximetry 96 09/22/18 17:54 09/22/18 19:00 09/22/18 20:00 Temperature 97.7 F Pulse Rate 64 64 64 Respiratory Rate 16 Blood Pressure 117/56 L Pulse Oximetry 97 97 09/22/18 21:00 09/22/18 22:00 09/22/18 22:42 Temperature 97.9 F Pulse Rate 62 64 65 Respiratory Rate 16 Blood Pressure 129/59 L Pulse Oximetry 98 09/22/18 23:00 09/23/18 00:00 09/23/18 01:00 Temperature Pulse Rate 66 68 68 Respiratory Rate Blood Pressure Pulse Oximetry 09/23/18 02:00 09/23/18 03:00 09/23/18 04:00 Temperature 98.1 F Pulse Rate 70 71 70 Respiratory Rate 18 Blood Pressure 131/60 Pulse Oximetry 97 09/23/18 05:00 09/23/18 06:00 Temperature Pulse Rate 72 72 Respiratory Rate Blood Pressure Pulse Oximetry Intake & Output 09/22/18 09/23/18 09/23/18 18:59 06:59 18:59 Intake Total 800 / 800 240 / 240 Balance 800 / 800 240 / 240 Weight 64.5 kg Intake: Oral 800 / 800 240 / 240 Other: Date of Last Bowel Movement 09/21/18 Narrative: GENERAL: Alert and oriented. SKIN: Warm and dry. NECK: Supple, trachea midline. No JVD. CARDIOVASCULAR: Regular rate and rhythm without murmurs, gallops, or rubs. Right AVG RESPIRATORY: Breath sounds diminished equal bilaterally. No accessory muscle use. GASTROINTESTINAL: Abdomen soft, non-tender, nondistended. MUSCULOSKELETAL: No cyanosis, or edema. Small dry wound of the right thumb BACK: Nontender without obvious deformity. No CVA tenderness. Results - Labs CBC & Chem 7: 09/23/18 04:20 09/23/18 04:20 Laboratory Results - last 24 hr 09/22/18 09/22/18 09/22/18 11:47 17:19 17:37 WBC RBC Hgb Hct MCV MCH MCHC RDW Plt Count MPV Neut % (Auto) Lymph % (Auto) [place] % (Auto) Eos % (Auto) Baso % (Auto) Neut # (Auto) Lymph # (Auto) [place] # (Auto) Eos # (Auto) Baso # (Auto) WBC Differential Differential Comment Sodium Potassium Chloride Carbon Dioxide Anion Gap BUN Creatinine Estimated GFR POC Glucose 73 45 L* 59 L Random Glucose Calcium Phosphorus Magnesium Total Bilirubin AST ALT Alkaline Phosphatase Total Protein Albumin 09/22/18 09/22/18 09/22/18 17:51 18:15 18:40 WBC RBC Hgb Hct MCV MCH MCHC RDW Plt Count MPV Neut % (Auto) Lymph % (Auto) [place] % (Auto) Eos % (Auto) Baso % (Auto) Neut # (Auto) Lymph # (Auto) [place] # (Auto) Eos # (Auto) Baso # (Auto) WBC Differential Differential Comment Sodium Potassium Chloride Carbon Dioxide Anion Gap BUN Creatinine Estimated GFR POC Glucose 68 91 92 Random Glucose Calcium Phosphorus Magnesium Total Bilirubin AST ALT Alkaline Phosphatase Total Protein Albumin 09/22/18 09/23/18 09/23/18 21:37 04:20 04:20 WBC 5.3 RBC 3.06 L Hgb 9.3 L Hct 28.7 L MCV 93.9 MCH 30.4 MCHC 32.4 RDW 16.7 Plt Count 225 MPV 7.9 Neut % (Auto) 69.3 Lymph % (Auto) 15.9 [place] % (Auto) 9.8 H Eos % (Auto) 3.7 Baso % (Auto) 1.3 Neut # (Auto) 3.7 Lymph # (Auto) 0.9 L [place] # (Auto) 0.5 Eos # (Auto) 0.2 Baso # (Auto) 0.1 WBC Differential . Differential Comment Auto diff final Sodium 133 L Potassium 5.2 H Chloride 95 L Carbon Dioxide 31.0 Anion Gap 7 BUN 31 H Creatinine 3.49 H Estimated GFR 13 L POC Glucose 118 H Random Glucose 216 H Calcium 8.2 L Phosphorus 3.3 Magnesium 2.2 Total Bilirubin 0.3 AST 21 ALT 8 L Alkaline Phosphatase 113 Total Protein 5.9 L Albumin 2.2 L 09/23/18 08:05 WBC RBC Hgb Hct MCV MCH MCHC RDW Plt Count MPV Neut % (Auto) Lymph % (Auto) [place] % (Auto) Eos % (Auto) Baso % (Auto) Neut # (Auto) Lymph # (Auto) [place] # (Auto) Eos # (Auto) Baso # (Auto) WBC Differential Differential Comment Sodium Potassium Chloride Carbon Dioxide Anion Gap BUN Creatinine Estimated GFR POC Glucose 293 H Random Glucose Calcium Phosphorus Magnesium Total Bilirubin AST ALT Alkaline Phosphatase Total Protein Albumin - Imaging ITS Impressions Extremity Arterial Study 09/15/18 00:00 CONCLUSION: 1. Diminished finger brachial indices at each digit most characteristic of steno-occlusive disease in the right upper extremity. Chest X-Ray 09/18/18 00:00 CONCLUSION: Increased opacification in the left lung base which may represent increased infiltrate and/or effusion. - Procedures RIGHT UE ANGIOGRAM AND HD ---- Preoperative Diagnosis: Right upper extremity steal syndrome Postoperative Diagnosis: Right upper extremity steal syndrome Date of procedure: 09/21/18 Procedure: Right upper extremity AV fistula proximalization Implants: Tapered 4-7 mm PTFE graft Anesthesia: MAC Surgeon: Nura Hernandez MD Estimated blood loss (mL): 150 Operation and Findings: Findings #1 successful proximalization of a right upper extremity AV fistula. #2 there was good thrill into the fistula at the end of the procedure #3 triphasic radial artery, monophasic ulnar artery signals at the end of the procedure. Procedure The patient was taken to the operating room placed supine on the OR table. After adequate sedation the patient was prepped and draped in the standard sterile fashion. Timeout was called with all members in the OR in agreement. 1 % lidocaine was injected in the right axilla. An incision was made at the old scar. Dissection was taken down through the subcutaneous tissues electrocautery. The axillary artery was dissected and encircled with a Silastic loop. 1% lidocaine was injected at the most proximal portion of the AV graft. Dissection was taken down through subcu tissues electrocautery. The graft was dissected circumferentially and encircled Silastic loop. The patient was heparinized. Proximal distal control was obtained on the axillary artery. Arteriotomy is created and tapered 4-7 mm graft was brought into the field and cut to appropriate length. The arterial anastomosis fashioned using a 6-0 Prolene suture and running fashion At this point the medial aspect of the arm was anesthetized using 1% lidocaine. The graft was tunneled. And the graft was cut at appropriate length and the old graft was divided. Created an anastomosis between the new graft and the old graft using 6-0 Prolene suture in the running fashion. At this point was extremely oozing. Multiple topical agents were used she was given protamine and DDAVP. We were able to obtain hemostasis at the end of the procedure. The wound was closed in multiple layers of Vicryl suture followed by Monocryl suture Steri-Strips and sterile dressing was applied. The patient tolerated the procedure well and was taken to recovery in stable condition. Documented By: Nura Hernandez MD 09/21/18 1851 Signed By: <Electronically signed by Nura Hernandez MD> 09/21/18 9319 Assessment and Plan - Assessment (1) CHF (congestive heart failure) Code(s): I50.9 - Heart failure, unspecified Status: Acute (2) Pleural effusion Code(s): J90 - Pleural effusion, not elsewhere classified Status: Acute (3) Hypoxia Code(s): R09.02 - Hypoxemia Status: Acute (4) ESRD on dialysis Code(s): N18.6 - End stage renal disease; Z99.2 - Dependence on renal dialysis Status: Acute (5) DM (diabetes mellitus) Code(s): E11.9 - Type 2 diabetes mellitus without complications Status: Acute - Plan 67-year-old female on hemodialysis admitted with acute diastolic CHF. Patient is also a brittle diabetic who presented with blood sugar of 700. She had one episode of acute hypoglycemia. [place] [facility] [place] now returned to [place]. CHF: Acute on Chronic. Diastolic. Echo 08/09/18 w/ EF 50-55%, BNP 2644, CXR w / chronic effusions, images reviewed. Continue home Bumex, monitor I/O, appreciate nephrology input. Dialysis as scheduled. Acute symptomatic hypoglycemia/DM: Brittle diabetic, presented with BS in the 700's. Glucose in the 20s on 09/13/18. Received Levemir the night before. Treated with D50 and IVF. - Continue SSI with accuchecks. - Diabetic diet. - Blood glucose spiked in the 300's again. Resume Levemir at a lower dose 10 unit in AM. - Blood glucose better today. Continue to monitor. = Still glucose in the 400s today. Will switch to Levemir 5 units twice daily, and increase sliding scale to moderate. = 09/18. Patient with a glucose of 49 this morning. Have adjusted insulin regimen. Right upper extremity steal syndrome/H/O AV graft: -Appreciate vascular surgery following. Duplex ultrasound ordered. Vascular surgery planning for revision. = 09/18. Plan for angiogram on 09/19 as per vascular surgery. Appreciate assistance. Angiogram today September 19- NEEDS REVISION OF GRAFT 09-21 FOR REVISION OF AV GRAFT LATER TODAY- HAD REVISION ON 09-21 CAD, abnormalities on tele with concerns for Atrial flutter: No cardiovascular complaints. Unsure if she has a history of Afib. - Patient evaluated by Cardiology, Dr. Reddy. tele findings believed to be artifacts - Continue Coreg, Effient, Statin. Monitor on Tele Pleural Effusion: recent admit w/ large left effusion s/p thoracentesis/chest tube, CXR w/ pleural effusions, left greater than right, however stable. COPD -Pulmonology following - Continue current treatment. If Effusion stable. = 09/18. Increased oxygen requirement to 6 L nasal cannula. Will check chest x -ray to monitor effusion. Pulmonology following. Appreciate assistance. Hypoxemia: O2 sat 86% on RA upon arrival, O2 dependent at night per patient, currently O2 sat 94% on 4L NC, monitor closely. DuoNeb prn. -Respiratory status seems to be stable today. = 09/18. Increasing ostial requirement. Will check BNP, repeat chest x-ray. ESRD on HD: M/W/F -Appreciate nephrology following. DVT Prophylaxis: SCD/Teds We will consult manager lpn regarding decub ulcers and feet WANTS DIET CHANGED AROUND SNF VS HHC NEED CM INPUT dc to home with hhc resume hd wed Code Status: full code Discussed Condition With: JENNIFER RN AND PT AND CM AND SURGERY Discharge Planning: DC TO HOME TODAY WITH HHC
--- NOTE | 2018-09-23 09:55 | P.DCO ---
- Physical Therapy Order: Evaluate and treat, Improve ambulation, Strength and gait training - Occupational Therapy Order: Evaluate and treat, Improve ADL, Gross motor coordination, Fine motor coordination - Home Health Nursing Order: Medical education, Signs/symptoms of disease process, Wound care and dressing changes, Nursing assessment with vital signs - Home Health Aide Order: To assist in: Bathing and personal care, materials planner/production planner and meal prep - Case Management Consult Yes - Certification I have seen patient Brinda Maynard on 09/23/18. My clinical findings support the need for the requested home health care services because: Limited mobility due to disease progression, Patient has SOB, Deconditioned with increased weakness, Medication compliance is questionable, Limited ability to care for self, High risk of falls I certify that my clinical findings support that this patient is homebound because: Impaired cognitive ability/safety, Unsteady gait/balance, Unsafe to leave home unassisted, Need for psychosocial assistance
--- NOTE | 2018-09-23 10:09 | P.DS ---
Date of admission: 09/11/18 04:45 Primary care physician: No Primary Care Physician Attending physician on discharge: Meek Handley Anticipated date of discharge: 09/23/18 Brief History from admission: This is a 67-year-old female with a PMH of HTN, COPD, Hyperlipidemia, O2 Dependent, h/o CAD, DM and ESRD on HD M/W/F who presented to the ER w/ SOB and non-productive cough x2 days. Recent admit 08/30-09/06/18 for similar complaints , found to have CHF Exacerbation w/ significant left pleural effusion s/p thoracentesis/chest tube, NSTEMI and suspected Sepsis. States she had been doing well after discharge until 2 days ago. Using home Nebulizers w/ minimal relief. Follows w/ Dr. Toro, last HD on Wednesday w/ no complications. Denies fever, chills, chest pain or sick contacts. On arrival, BP 124/78, HR 64, O2 sat 86% on RA, Afebrile. CBC unremarkable. Creatinine 3.0, previous E2.86. BS 771. BNP 2644. Troponin 0 0.03. CXR with chronic pleural effusions left greater than right, finding stable since prior exam. S/p DuoNeb in ER w/ some improvement. Patient update on day of discharge: This is a 67-year-old female with a PMH of HTN, COPD, Hyperlipidemia, O2 Dependent, h/o CAD, DM and ESRD on HD M/W/F who presented to the ER w/ SOB and non-productive cough x2 days. Recent admit 08/30-09/06/18 for similar complaints , found to have CHF Exacerbation w/ significant left pleural effusion s/p thoracentesis/chest tube, NSTEMI and suspected Sepsis. States she had been doing well after discharge until 2 days ago. Using home Nebulizers w/ minimal relief. Follows w/ Dr. Toro, last HD on Wednesday w/ no complications. Denies fever, chills, chest pain or sick contacts. On arrival, BP 124/78, HR 64, O2 sat 86% on RA, Afebrile. CBC unremarkable. Creatinine 3.0, previous E2.86. BS 771. BNP 2644. Troponin 0 0.03. CXR with chronic pleural effusions left greater than right, finding stable since prior exam. S/p DuoNeb in ER w/ some improvement. 1015 Patient still reports shortness of breath. Essentially unchanged from yesterday. Awaiting to have dialysis today. 16 SHANON called on the patient this morning for blood glucose of 22. She was hard to arouse and diaphoretic. The patient was given 1 amp of D50 and immediately transferred to the [facility] [place] the patient. Blood glucose improved to 157. She is nauseous and retching. Otherwise is responding appropriately to questions. 17 Patient complains of worsening pain on her right thumb. She otherwise feels much better today. 18 Plastic surgery note reviewed . Patient reports she is feeling better overall. Breathing more comfortable. 09-16 Patient reports she had more pain on the right thumb earlier during dialysis. Otherwise she reports her breathing is improved. No chest pain. 09-17 Patient says she is feeling alright. Denies any chest pain. Reports shortness of breath overall improved. 09-18 Patient says she is feeling comfortable this morning. Denies any chest pain or shortness of breath. Denies nausea or vomiting. 09-19 to go FOR ANGIOGRAM TODAY AND HD LATER TODAY NEEDS PT AND OT NEEDS TO MOVE MORE DW RN AND PT AND CM physical metallurgist to eval and treat AM LABS 09-20 HAD ANGIOGRAM OF RIGHT UE NEEDS SHUNT REVISION NEEDS PT AND OT DW RN AND PT AND CM 09-21 SEEN IN HD TO GO FOR REVISION OF RIGHT UE GRAFT LATER TODAY WITH VASCULAR AM LABS INCREASE ACTIVITY JENNIFER RN AND PT AND CM 09-22 HAD REVISION OF RIGHT UE GRAFT ON 09-21 DW RN AND PT HOPEFULLY HOME TOMORROW VS SNF CASE MANAGEMENT FOR HELP AM LABS WANTS TO GO HOME TOMORROW 09-23 SEEN IN HD GRAFT WORKING WELL DW PT AND RN AND CM AND SURGERY DC TO HOME TODAY WANTS PAIN MEDS DS: Diagnosis - Discharge Diagnosis (1) CHF (congestive heart failure) Status: Acute (2) Pleural effusion Status: Acute (3) Hypoxia Status: Acute (4) ESRD on dialysis Status: Chronic (5) DM (diabetes mellitus) Status: Chronic DS: Medications - Discharge Medications Prescriptions: albuterol sulfate [Ventolin HFA] 2 puff INHALATION Q6H PRN #1 inh PRN Reason: Shortness Of Breath aspirin 81 mg PO DAILY #30 tab atorvastatin 80 mg PO HS #30 tab azithromycin 500 mg PO DAILY #5 tab budesonide-formoterol [Symbicort] 2 puff INHALATION BID #1 inh bumetanide 1 mg PO BID 30 Days #60 tab calcium acetate 667 mg PO TID 30 Days #90 cap carvedilol 6.25 mg PO BID #60 tab dextromethorphan-guaifenesin 10 ml PO Q6H #600 ml gabapentin 100 mg PO HS #30 cap hydralazine 100 mg PO TID #90 tab insulin detemir U-100 [Levemir U-100 Insulin] 5 unit SUBCUT BID #5 vial ipratropium-albuterol 1 amp NEB Q4HR NEB PRN #180 amp PRN Reason: SOB/WHEEZING mupirocin 1 applic TOPICAL BID #1 tube nifedipine 90 mg PO DAILY #30 tab nitroglycerin [Nitrostat] 0.4 mg SUBLINGUAL Q5M PRN #100 tab PRN Reason: Chest Pain oxycodone-acetaminophen 1 tab PO Q4H PRN #18 tab PRN Reason: Pain prasugrel 10 mg PO DAILY #30 tab sennosides-docusate sodium [Senna Plus] 2 tab PO BID #120 tab vit B comp no.3-sxfwu-[id number]-biotin [Nephro-Bonita Rx] 1 tab PO DAILY #30 tab DS: Summary Hospital Course: This is a 67-year-old female with a PMH of HTN, COPD, Hyperlipidemia, O2 Dependent, h/o CAD, DM and ESRD on HD M/W/F who presented to the ER w/ SOB and non-productive cough x2 days. Recent admit 08/30-09/06/18 for similar complaints , found to have CHF Exacerbation w/ significant left pleural effusion s/p thoracentesis/chest tube, NSTEMI and suspected Sepsis. States she had been doing well after discharge until 2 days ago. Using home Nebulizers w/ minimal relief. Follows w/ Dr. Toro, last HD on Wednesday w/ no complications. Denies fever, chills, chest pain or sick contacts. On arrival, BP 124/78, HR 64, O2 sat 86% on RA, Afebrile. CBC unremarkable. Creatinine 3.0, previous E2.86. BS 771. BNP 2644. Troponin 0 0.03. CXR with chronic pleural effusions left greater than right, finding stable since prior exam. S/p DuoNeb in ER w/ some improvement. 10-15 Patient still reports shortness of breath. Essentially unchanged from yesterday. Awaiting to have dialysis today. 1016 SHANON called on the patient this morning for blood glucose of 22. She was hard to arouse and diaphoretic. The patient was given 1 amp of D50 and immediately transferred to the [facility] [place] evaluated the patient. Blood glucose improved to 157. She is nauseous and retching. Otherwise is responding appropriately to questions. 1017 Patient complains of worsening pain on her right thumb. She otherwise feels much better today. 1018 Plastic surgery note reviewed . Patient reports she is feeling better overall. Breathing more comfortable. 09-16 Patient reports she had more pain on the right thumb earlier during dialysis. Otherwise she reports her breathing is improved. No chest pain. 09-17 Patient says she is feeling alright. Denies any chest pain. Reports shortness of breath overall improved. 09-18 Patient says she is feeling comfortable this morning. Denies any chest pain or shortness of breath. Denies nausea or vomiting. 09-19 to go FOR ANGIOGRAM TODAY AND HD LATER TODAY NEEDS PT AND OT NEEDS TO MOVE MORE DW RN AND PT AND CM physical metallurgist to eval and treat AM LABS 09-20 HAD ANGIOGRAM OF RIGHT UE NEEDS SHUNT REVISION NEEDS PT AND OT DW RN AND PT AND CM 09-21 SEEN IN HD TO GO FOR REVISION OF RIGHT UE GRAFT LATER TODAY WITH VASCULAR AM LABS INCREASE ACTIVITY JENNIFER RN AND PT AND CM 09-22 HAD REVISION OF RIGHT UE GRAFT ON 09-21 JENNIFER RN AND PT HOPEFULLY HOME TOMORROW VS SNF CASE MANAGEMENT FOR HELP AM LABS WANTS TO GO HOME TOMORROW 09-23 SEEN IN HD GRAFT WORKING WELL DW PT AND RN AND CM AND SURGERY DC TO HOME TODAY WANTS PAIN MEDS [facility] Prescription Drug Monitoring Database has been queried and verified prior to prescribing the controlled substance. Acute pain exception. This patient has normal, predicted, physiological, and time limited response to an adverse mechanical stimulus associated with surgery, trauma, or acute illness as described in my notes. There is a lack of alternative treatment options other than to include the prescribed narcotic treatment for this condition. WILL GIVE RX - Time Spent with Patient Total time spent providing and/or coordinating discharge services: Greater than 30 minutes - Quality: VTE Deep Vein Thrombosis/Pulmonary Embolism Present on Admission: No Exam Vital signs: Vital Signs 09/22/18 10:00 09/22/18 11:00 09/22/18 12:00 Temperature 97.9 F Pulse Rate 68 64 62 Respiratory Rate 18 Blood Pressure 94/48 L Pulse Oximetry 99 09/22/18 13:00 09/22/18 13:28 09/22/18 14:00 Temperature Pulse Rate 60 63 Respiratory Rate Blood Pressure 137/56 L Pulse Oximetry 09/22/18 15:00 09/22/18 16:00 09/22/18 17:00 Temperature 98 F Pulse Rate 67 64 68 Respiratory Rate 18 Blood Pressure 137/65 Pulse Oximetry 96 09/22/18 17:54 09/22/18 19:00 09/22/18 20:00 Temperature 97.7 F Pulse Rate 64 64 64 Respiratory Rate 16 Blood Pressure 117/56 L Pulse Oximetry 97 97 09/22/18 21:00 09/22/18 22:00 09/22/18 22:42 Temperature 97.9 F Pulse Rate 62 64 65 Respiratory Rate 16 Blood Pressure 129/59 L Pulse Oximetry 98 09/22/18 23:00 09/23/18 00:00 09/23/18 01:00 Temperature Pulse Rate 66 68 68 Respiratory Rate Blood Pressure Pulse Oximetry 09/23/18 02:00 09/23/18 03:00 09/23/18 04:00 Temperature 98.1 F Pulse Rate 70 71 70 Respiratory Rate 18 Blood Pressure 131/60 Pulse Oximetry 97 09/23/18 05:00 09/23/18 06:00 Temperature Pulse Rate 72 72 Respiratory Rate Blood Pressure Pulse Oximetry Intake & Output 09/22/18 09/23/18 09/23/18 18:59 06:59 18:59 Intake Total 800 / 800 240 / 240 Balance 800 / 800 240 / 240 Weight 64.5 kg Intake: Oral 800 / 800 240 / 240 Other: Date of Last Bowel Movement 09/21/18 Narrative: GENERAL: Alert and oriented. SKIN: Warm and dry. NECK: Supple, trachea midline. No JVD. CARDIOVASCULAR: Regular rate and rhythm without murmurs, gallops, or rubs. Right AVG RESPIRATORY: Breath sounds diminished equal bilaterally. No accessory muscle use. GASTROINTESTINAL: Abdomen soft, non-tender, nondistended. MUSCULOSKELETAL: No cyanosis, or edema. Small dry wound of the right thumb BACK: Nontender without obvious deformity. No CVA tenderness. Results Procedures completed during hospitalization: RIGHT UE ANGIOGRAM AND HD ---- Preoperative Diagnosis: Right upper extremity steal syndrome Postoperative Diagnosis: Right upper extremity steal syndrome Date of procedure: 09/21/18 Procedure: Right upper extremity AV fistula proximalization Implants: Tapered 4-7 mm PTFE graft Anesthesia: MAC Surgeon: Nura Hernandez MD Estimated blood loss (mL): 150 Operation and Findings: Findings #1 successful proximalization of a right upper extremity AV fistula. #2 there was good thrill into the fistula at the end of the procedure #3 triphasic radial artery, monophasic ulnar artery signals at the end of the procedure. Procedure The patient was taken to the operating room placed supine on the OR table. After adequate sedation the patient was prepped and draped in the standard sterile fashion. Timeout was called with all members in the OR in agreement. 1 % lidocaine was injected in the right axilla. An incision was made at the old scar. Dissection was taken down through the subcutaneous tissues electrocautery. The axillary artery was dissected and encircled with a Silastic loop. 1% lidocaine was injected at the most proximal portion of the AV graft. Dissection was taken down through subcu tissues electrocautery. The graft was dissected circumferentially and encircled Silastic loop. The patient was heparinized. Proximal distal control was obtained on the axillary artery. Arteriotomy is created and tapered 4-7 mm graft was brought into the field and cut to appropriate length. The arterial anastomosis fashioned using a 6-0 Prolene suture and running fashion At this point the medial aspect of the arm was anesthetized using 1% lidocaine. The graft was tunneled. And the graft was cut at appropriate length and the old graft was divided. Created an anastomosis between the new graft and the old graft using 6-0 Prolene suture in the running fashion. At this point was extremely oozing. Multiple topical agents were used she was given protamine and DDAVP. We were able to obtain hemostasis at the end of the procedure. The wound was closed in multiple layers of Vicryl suture followed by Monocryl suture Steri-Strips and sterile dressing was applied. The patient tolerated the procedure well and was taken to recovery in stable condition. Documented By: Nura Hernandez MD 09/21/18 1711 Signed By: <Electronically signed by Nura Hernandez MD> 09/21/18 1719 Completed studies during hospitalization: Laboratory Results WBC 5.3 th/mm3 (4.0-11.0) 09/23/18 04:20 RBC 3.06 mil/mm3 (4.00-5.30) L 09/23/18 04:20 Hgb 9.3 gm/dL (11.6-15.3) L 09/23/18 04:20 Hct 28.7 % (35.0-46.0) L 09/23/18 04:20 MCV 93.9 fL (80.0-100.0) 09/23/18 04:20 MCH 30.4 pg (27.0-34.0) 09/23/18 04:20 MCHC 32.4 % (32.0-36.0) 09/23/18 04:20 RDW 16.7 % (11.6-17.2) 09/23/18 04:20 Plt Count 225 th/mm3 (150-450) 09/23/18 04:20 MPV 7.9 fL (7.0-11.0) 09/23/18 04:20 Neut % (Auto) 69.3 % (16.0-70.0) 09/23/18 04:20 Lymph % (Auto) 15.9 % (9.0-44.0) 09/23/18 04:20 [place] % (Auto) 9.8 % (0.0-8.0) H 09/23/18 04:20 Eos % (Auto) 3.7 % (0.0-4.0) 09/23/18 04:20 Baso % (Auto) 1.3 % (0.0-2.0) 09/23/18 04:20 Neut # (Auto) 3.7 th/mm3 (1.8-7.7) 09/23/18 04:20 Lymph # (Auto) 0.9 th/mm3 (1.0-4.8) L 09/23/18 04:20 [place] # (Auto) 0.5 th/mm3 (0.0-0.9) 09/23/18 04:20 Eos # (Auto) 0.2 th/mm3 (0.0-0.4) 09/23/18 04:20 Baso # (Auto) 0.1 th/mm3 (0.0-0.2) 09/23/18 04:20 WBC Differential . 09/23/18 04:20 Differential Comment Auto diff final 09/23/18 04:20 Sodium 133 meq/L (136-145) L 09/23/18 04:20 Potassium 5.2 meq/L (3.5-5.1) H 09/23/18 04:20 Chloride 95 meq/L (98-107) L 09/23/18 04:20 Carbon Dioxide 31.0 meq/L (21.0-32.0) 09/23/18 04:20 Anion Gap 7 meq/L (5-15) 09/23/18 04:20 BUN 31 mg/dL (7-18) H 09/23/18 04:20 Creatinine 3.49 mg/dL (0.50-1.00) H 09/23/18 04:20 Estimated GFR 13 mL/min (>89) L 09/23/18 04:20 POC Glucose 293 mg/dl (68-110) H 09/23/18 08:05 Random Glucose 216 mg/dL (74-106) H 09/23/18 04:20 Hemoglobin A1c 10.4 % (4.3-6.0) H 09/20/18 05:13 Calcium 8.2 mg/dL (8.5-10.1) L 09/23/18 04:20 Phosphorus 3.3 mg/dL (2.5-4.9) 09/23/18 04:20 Magnesium 2.2 mg/dL (1.5-2.5) 09/23/18 04:20 Total Bilirubin 0.3 mg/dL (0.2-1.0) 09/23/18 04:20 AST 21 U/L (15-37) 09/23/18 04:20 ALT 8 U/L (10-53) L 09/23/18 04:20 Alkaline Phosphatase 113 U/L (45-117) 09/23/18 04:20 Troponin I 0.03 ng/mL (0.02-0.05) 09/11/18 03:50 B-Natriuretic Peptide 1499 pg/mL (0-100) H 09/18/18 11:07 Total Protein 5.9 g/dL (6.4-8.2) L 09/23/18 04:20 Albumin 2.2 g/dL (3.4-5.0) L 09/23/18 04:20 Beta-Hydroxybutyric Acd 2.62 mmol/L (0.00-0.39) H 09/11/18 03:50 Free T4 0.94 ng/dL (0.76-1.46) 09/20/18 05:13 Nasal Screen MRSA (PCR) Not detected (Negative) 09/14/18 11:15 Impressions Extremity Arterial Study 09/15/18 00:00 CONCLUSION: 1. Diminished finger brachial indices at each digit most characteristic of steno-occlusive disease in the right upper extremity. Chest X-Ray 09/18/18 00:00 CONCLUSION: Increased opacification in the left lung base which may represent increased infiltrate and/or effusion. Labs on day of discharge: Labs from last 24 hours 09/23/18 09/23/18 09/23/18 08:05 04:20 04:20 WBC 5.3 RBC 3.06 L Hgb 9.3 L Hct 28.7 L MCV 93.9 MCH 30.4 MCHC 32.4 RDW 16.7 Plt Count 225 MPV 7.9 Neut % (Auto) 69.3 Lymph % (Auto) 15.9 [place] % (Auto) 9.8 H Eos % (Auto) 3.7 Baso % (Auto) 1.3 Neut # (Auto) 3.7 Lymph # (Auto) 0.9 L [place] # (Auto) 0.5 Eos # (Auto) 0.2 Baso # (Auto) 0.1 WBC Differential . Differential Comment Auto diff final Sodium 133 L Potassium 5.2 H Chloride 95 L Carbon Dioxide 31.0 Anion Gap 7 BUN 31 H Creatinine 3.49 H Estimated GFR 13 L POC Glucose 293 H Random Glucose 216 H Calcium 8.2 L Phosphorus 3.3 Magnesium 2.2 Total Bilirubin 0.3 AST 21 ALT 8 L Alkaline Phosphatase 113 Total Protein 5.9 L Albumin 2.2 L 09/22/18 09/22/18 09/22/18 21:37 18:40 18:15 WBC RBC Hgb Hct MCV MCH MCHC RDW Plt Count MPV Neut % (Auto) Lymph % (Auto) [place] % (Auto) Eos % (Auto) Baso % (Auto) Neut # (Auto) Lymph # (Auto) [place] # (Auto) Eos # (Auto) Baso # (Auto) WBC Differential Differential Comment Sodium Potassium Chloride Carbon Dioxide Anion Gap BUN Creatinine Estimated GFR POC Glucose 118 H 92 91 Random Glucose Calcium Phosphorus Magnesium Total Bilirubin AST ALT Alkaline Phosphatase Total Protein Albumin 09/22/18 09/22/18 09/22/18 17:51 17:37 17:19 WBC RBC Hgb Hct MCV MCH MCHC RDW Plt Count MPV Neut % (Auto) Lymph % (Auto) [place] % (Auto) Eos % (Auto) Baso % (Auto) Neut # (Auto) Lymph # (Auto) [place] # (Auto) Eos # (Auto) Baso # (Auto) WBC Differential Differential Comment Sodium Potassium Chloride Carbon Dioxide Anion Gap BUN Creatinine Estimated GFR POC Glucose 68 59 L 45 L* Random Glucose Calcium Phosphorus Magnesium Total Bilirubin AST ALT Alkaline Phosphatase Total Protein Albumin 09/22/18 11:47 WBC RBC Hgb Hct MCV MCH MCHC RDW Plt Count MPV Neut % (Auto) Lymph % (Auto) [place] % (Auto) Eos % (Auto) Baso % (Auto) Neut # (Auto) Lymph # (Auto) [place] # (Auto) Eos # (Auto) Baso # (Auto) WBC Differential Differential Comment Sodium Potassium Chloride Carbon Dioxide Anion Gap BUN Creatinine Estimated GFR POC Glucose 73 Random Glucose Calcium Phosphorus Magnesium Total Bilirubin AST ALT Alkaline Phosphatase Total Protein Albumin - Impressions ITS Impressions Extremity Arterial Study 09/15/18 00:00 CONCLUSION: 1. Diminished finger brachial indices at each digit most characteristic of steno-occlusive disease in the right upper extremity. Chest X-Ray 09/18/18 00:00 CONCLUSION: Increased opacification in the left lung base which may represent increased infiltrate and/or effusion. Discharge Plan - Discharge Disposition Patient Disposition: W/Home Health Service - Discharge Condition Condition: Good - Discharge Order Discharge Orders: Discharge Order (Routine); Ordered 09/23/18 Ordered By: Meek Handley - Discharge Details Anticipated Discharge Date: 09/23/18 Discharge Comment: DC TO HOME AFTER HD TODAY - Physicians Team Primary Care Provider: Primary Care Physici,No Attending Provider: Meek Handley Other Providers: Des Toro MD ; Aaron Blankenship MD ; Dunia Reddy MD ; Bravo Vanessa MD ; Anabell Cerrato MD
[2018-09-23 10:25] VITALS: TEMP 97.9
--- NOTE | 2018-09-23 11:26 | P.PNPL ---
Subjective Interval history: 67 YOWF with CHF,COPD, ch pl eff, DM Admitted with SOB Breathing better Cough much better Gets out of bed with PT Undergoing HD Physical Exam Vital signs: Vital Signs 09/22/18 12:00 09/22/18 13:00 09/22/18 13:28 Temperature Pulse Rate 62 60 Respiratory Rate Blood Pressure 137/56 L Pulse Oximetry 09/22/18 14:00 09/22/18 15:00 09/22/18 16:00 Temperature 98 F Pulse Rate 63 67 64 Respiratory Rate 18 Blood Pressure 137/65 Pulse Oximetry 96 09/22/18 17:00 09/22/18 17:54 09/22/18 19:00 Temperature 97.7 F Pulse Rate 68 64 64 Respiratory Rate 16 Blood Pressure 117/56 L Pulse Oximetry 97 09/22/18 20:00 09/22/18 21:00 09/22/18 22:00 Temperature Pulse Rate 64 62 64 Respiratory Rate Blood Pressure Pulse Oximetry 97 09/22/18 22:42 09/22/18 23:00 09/23/18 00:00 Temperature 97.9 F Pulse Rate 65 66 68 Respiratory Rate 16 Blood Pressure 129/59 L Pulse Oximetry 98 09/23/18 01:00 09/23/18 02:00 09/23/18 03:00 Temperature 98.1 F Pulse Rate 68 70 71 Respiratory Rate 18 Blood Pressure 131/60 Pulse Oximetry 97 09/23/18 04:00 09/23/18 05:00 09/23/18 06:00 Temperature Pulse Rate 70 72 72 Respiratory Rate Blood Pressure Pulse Oximetry 09/23/18 07:00 09/23/18 08:00 09/23/18 09:00 Temperature 97.9 F Pulse Rate 74 65 69 Respiratory Rate 16 Blood Pressure 156/70 H Pulse Oximetry 95 95 09/23/18 10:00 Temperature Pulse Rate 66 Respiratory Rate Blood Pressure Pulse Oximetry Intake & Output 09/22/18 09/23/18 09/23/18 18:59 06:59 18:59 Intake Total 800 / 800 240 / 240 Balance 800 / 800 240 / 240 Weight 64.5 kg Intake: Oral 800 / 800 240 / 240 Other: Date of Last Bowel Movement 09/21/18 09/21/18 GENERAL: Elderly WF,NAD SKIN: Warm and dry. HEAD: Normocephalic. EYES: No scleral icterus. No injection or drainage. NECK: Supple, trachea midline. No JVD or lymphadenopathy. CARDIOVASCULAR: Regular rate and rhythm without murmurs, gallops, or rubs. RESPIRATORY: Breath sounds equal bilaterally. No accessory muscle use. GASTROINTESTINAL: Abdomen soft, non-tender, nondistended. MUSCULOSKELETAL: No cyanosis, or edema. BACK: Nontender without obvious deformity. No CVA tenderness. Assessment and Plan - Plan IMPRESSION: 1. Respiratory failure. 2. Hypoxia. 3. Morbid obesity. 4. Likely sleep apnea. 5. Osteomyelitis. 6. Pneumonia. 7. Pulmonary edema. 8. Renal insufficiency. PLAN: Supplement 02 Monitor BS Zithro 500 mg po daily Robitussin DM 10 cc q 6 hrs Use Acapella DC plans underway for home Will FU in office
[2018-09-23 13:20] VITALS: BP 163/70; RESP 18; O2SAT 98
--- NOTE | 2018-09-23 13:59 | P.PNCA ---
Subjective Interval history: Patient denies any CP, pressure, palpitations, dizziness, edema or SOB. Patient states that she is feeling so much better and is ready to go home. Medications and Allergies Allergies Allergy/AdvReac Type Severity Reaction Status Date / Time propoxyphene Allergy Intermediate RASH Verified 07/18/18 07:41 Active Medications: Active Medications Acetaminophen (Tylenol) 650 mg PO Q4H PRN PRN Reason: Temp > 100.4 OR PAIN 1-5 Last Admin: 09/11/18 21:37 Dose: 650 mg Acetaminophen (Tylenol) 650 mg PO UNSCH PRN PRN Reason: SEE LABEL COMMENTS Al Hydroxide/Mg Hydroxide (Milk Of Leonidas Luke) 30 ml PO Q12H PRN PRN Reason: Mild Constipation Albuterol (Duoneb Neb (Prn)) 1 ampul NEB Q4HR NEB PRN PRN Reason: SOB/WHEEZING Last Admin: 09/19/18 01:48 Dose: 1 ampul Aspirin (Ecotrin) 81 mg PO DAILY [facility] Last Admin: 09/23/18 13:17 Dose: 81 mg Atorvastatin Calcium (Lipitor) 80 mg PO HS [facility] Last Admin: 09/22/18 21:34 Dose: 80 mg Azithromycin (Zithromax) 500 mg PO DAILY [facility] Last Admin: 09/23/18 13:18 Dose: 500 mg Bisacodyl (Dulcolax Supp) 10 mg RECTAL DAILY PRN PRN Reason: SEVERE CONSITIPATION Budesonide/Formoterol Fumarate (Symbicort 160/4.5 Mcg Inh) 2 puff INH BID [facility] Last Admin: 09/23/18 13:16 Dose: 2 puff Bumetanide (Bumex) 1 mg PO BID [facility] Last Admin: 09/23/18 13:14 Dose: 1 mg Calcium Acetate (Phoslo) 667 mg PO TID [facility] Last Admin: 09/23/18 13:00 Dose: 667 mg Carvedilol (Coreg) 6.25 mg PO BID [facility] Last Admin: 09/23/18 13:14 Dose: 6.25 mg Clonidine HCl (Catapres) 0.1 mg PO UNSCH PRN PRN Reason: SEE LABEL COMMENTS Dextrose (D50w Vial) 50 ml IV.PUSH UNSCH PRN PRN Reason: PER HYPOGLYCEMIA PROTOCOL Last Admin: 09/13/18 09:00 Dose: 50 ml Diphenhydramine HCl (Benadryl) 25 mg PO UNSCH PRN PRN Reason: SEE LABEL COMMENTS Epoetin Low (Epogen Inj) 6,000 unit IV.PUSH UNSCH PRN PRN Reason: SEE LABEL COMMENTS Last Admin: 09/19/18 19:04 Dose: 6,000 unit Gabapentin (Neurontin) 100 mg PO HS [facility] Last Admin: 09/22/18 21:34 Dose: 100 mg Gelatin (Gelfoam 12 Mm/7 Mm Topical) 1 foam TOPICAL PRN PRN PRN Reason: help stop bleeding from site Last Admin: 09/16/18 11:27 Dose: 1 foam Gentamicin Sulfate (Gentamicin Inj) 20 mg OTHER WITH DIALYSIS PRN PRN Reason: Dwell Gentamycin Lock Glucagon (Glucagon Inj) 1 mg OTHER PRN PRN PRN Reason: for Hypoglycemia Protocol Guaifenesin/Dextromethorphan (Robitussin Dm 200/20 Mg/10 Ml Liq) 10 ml PO Q6H [facility] Last Admin: 09/23/18 12:27 Dose: Not Given Heparin Sodium (Porcine) (Heparin Inj) 8,000 units OTHER WITH DIALYSIS PRN PRN Reason: for machine prime Heparin Sodium (Porcine) (Heparin Inj) 1,000 units OTHER WITH DIALYSIS PRN PRN Reason: Dwell Heparin to Fill Catheter Hydralazine HCl (Apresoline) 100 mg PO TID [facility] Last Admin: 09/23/18 13:00 Dose: 100 mg Albumin Human (Flexbumin 25% Inj) 100 mls @ 60 mls/hr IV.SIG WITH DIALYSIS PRN PRN Reason: hypotension / volume replace Sodium Chloride (Ns Inj) 1,000 mls @ 0 mls/hr OTHER .Q0M PRN PRN Reason: for prime and rinse back Sodium Chloride (Ns Inj) 1,000 mls @ 200 mls/hr OTHER .Q5H PRN PRN Reason: for dialyzer flush PRN Sodium Chloride (Ns Inj) 1,000 mls @ 0 mls/hr IV.CONT .Q0M PRN PRN Reason: hypotension / volume replace Desmopressin Acetate 19.32 mcg (/ Sodium Chloride) 54.83 mls @ 109.66 mls/hr IV.SIG [employer] Last Admin: 09/21/18 16:43 Dose: Not Given Insulin Aspart (Novolog Insulin Correctional Sugar Inj) 0 unit SQ ACHS [facility]; Protocol Last Admin: 09/23/18 13:00 Dose: 2 unit Insulin Detemir (Levemir Inj) 5 unit SQ BID [facility] Last Admin: 09/23/18 09:05 Dose: Not Given Lactulose (Lactulose Liq) 30 ml PO DAILY PRN PRN Reason: SEVERE CONSITIPATION Mannitol (Mannitol Inj) 12.5 gm IV.PUSH UNSCH PRN PRN Reason: hypotension / volume replace Nifedipine (Procardia Xl) 90 mg PO DAILY [facility] Last Admin: 09/23/18 13:18 Dose: 90 mg Nitroglycerin (Nitrostat Sl) 0.4 mg SL Q5M PRN PRN Reason: CHEST PAIN Ondansetron HCl (Zofran Inj) 4 mg IV.PUSH Q6H PRN PRN Reason: NAUSEA OR VOMITING Last Admin: 09/13/18 14:28 Dose: 4 mg Ondansetron HCl (Zofran Inj) 4 mg IV.PUSH UNSCH PRN PRN Reason: NAUSEA OR VOMITING Oxycodone/Acetaminophen (Percocet 5/325 Mg) 1 tab PO Q4H PRN PRN Reason: PAIN SCALE 6 TO 10 Last Admin: 09/23/18 13:03 Dose: 1 tab Prasugrel (Effient) 10 mg PO DAILY [facility] Last Admin: 09/23/18 13:17 Dose: 10 mg Senna/Docusate Sodium (Jocelyn-Colace) 1 tab PO BID [facility] Last Admin: 09/23/18 13:15 Dose: 1 tab Sennosides (Senokot) 17.2 mg PO Q12H PRN PRN Reason: Moderate Constipation Sodium Chloride (Ns Flush) 5 ml IV.FLUSH PRN PRN PRN Reason: flush each lumen during HD Sodium Chloride (Ns Flush) 2 ml IV.FLUSH BID [facility] Last Admin: 09/23/18 09:06 Dose: Not Given Sodium Chloride (Ns Flush) 2 ml IV.FLUSH PRN PRN PRN Reason: FLUSH AFTER USING IV ACCESS Physical Exam Vital signs: Vital Signs 09/22/18 14:00 09/22/18 15:00 09/22/18 16:00 Temperature 98 F Pulse Rate 63 67 64 Respiratory Rate 18 Blood Pressure 137/65 Pulse Oximetry 96 09/22/18 17:00 09/22/18 17:54 09/22/18 19:00 Temperature 97.7 F Pulse Rate 68 64 64 Respiratory Rate 16 Blood Pressure 117/56 L Pulse Oximetry 97 09/22/18 20:00 09/22/18 21:00 09/22/18 22:00 Temperature Pulse Rate 64 62 64 Respiratory Rate Blood Pressure Pulse Oximetry 97 09/22/18 22:42 09/22/18 23:00 09/23/18 00:00 Temperature 97.9 F Pulse Rate 65 66 68 Respiratory Rate 16 Blood Pressure 129/59 L Pulse Oximetry 98 09/23/18 01:00 09/23/18 02:00 09/23/18 03:00 Temperature 98.1 F Pulse Rate 68 70 71 Respiratory Rate 18 Blood Pressure 131/60 Pulse Oximetry 97 09/23/18 04:00 09/23/18 05:00 09/23/18 06:00 Temperature Pulse Rate 70 72 72 Respiratory Rate Blood Pressure Pulse Oximetry 09/23/18 07:00 09/23/18 08:00 09/23/18 09:00 Temperature 97.9 F 97.9 F Pulse Rate 74 78 69 Respiratory Rate 16 18 Blood Pressure 156/70 H 163/70 H Pulse Oximetry 95 98 09/23/18 10:00 09/23/18 11:00 09/23/18 12:00 Temperature Pulse Rate 66 77 77 Respiratory Rate Blood Pressure Pulse Oximetry 09/23/18 13:00 Temperature Pulse Rate 77 Respiratory Rate Blood Pressure Pulse Oximetry Intake & Output 09/22/18 09/23/18 09/23/18 18:59 06:59 18:59 Intake Total 800 / 800 240 / 240 Output Total 1500 / 1500 Balance 800 / 800 240 / 240 -1500 / -1500 Weight 64.5 kg Intake: Oral 800 / 800 240 / 240 Output: Hemodialysis Amount 1500 / 1500 Other: Date of Last Bowel Movement 09/21/18 09/21/18 - Constitutional no acute distress - Routine HEENT Exam Head: Present: normocephalic Eye: Present: PERRL ENT: Present: mucous membranes moist - Routine Neck Exam Present: full ROM - Routine Respiratory Exam Present: rhonchi Comments: rhonchi throughout bilateral - Routine Cardiovascular Exam Present: S1, S2. Absent: murmur, gallop, rubs - Routine Abdominal Exam Present: normoactive bowel sounds - Routine Extremities Exam Present: full ROM, pulses intact, normal capillary refill. Absent: cyanosis, clubbing, edema - Routine Skin Exam Present: intact - Routine Neurological Exam Present: oriented X3 - Detailed Neurological Exam: Coma Scale Eye Opening: Spontaneous Verbal Response: Oriented Motor Response: Obey commands Zeny Coma Scale Total: 15 - Routine Psychiatric Exam Present: normal affect Results 09/23/18 04:20 09/23/18 04:20 Cardiac Enzymes 09/22/18 09/23/18 Range/Units 04:35 04:20 AST 23 21 (15-37) U/L CBC 09/22/18 09/23/18 Range/Units 04:35 04:20 WBC 9.7 D 5.3 (4.0-11.0) th/mm3 RBC 3.19 L 3.06 L (4.00-5.30) mil/mm3 Hgb 9.7 L 9.3 L (11.6-15.3) gm/dL Hct 29.8 L 28.7 L (35.0-46.0) % Plt Count 256 225 (150-450) th/mm3 Neut # (Auto) 8.6 H 3.7 (1.8-7.7) th/mm3 Lymph # (Auto) 0.4 L 0.9 L (1.0-4.8) th/mm3 [place] # (Auto) 0.6 0.5 (0.0-0.9) th/mm3 Eos # (Auto) 0.1 0.2 (0.0-0.4) th/mm3 Baso # (Auto) 0.1 0.1 (0.0-0.2) th/mm3 Comprehensive Metabolic Panel 09/22/18 09/23/18 Range/Units 04:35 04:20 Sodium 135 L 133 L (136-145) meq/L Potassium 4.6 5.2 H (3.5-5.1) meq/L Chloride 97 L 95 L (98-107) meq/L Carbon Dioxide 32.4 H 31.0 (21.0-32.0) meq/L BUN 25 H 31 H (7-18) mg/dL Creatinine 3.02 H 3.49 H (0.50-1.00) mg/dL Calcium 8.1 L 8.2 L (8.5-10.1) mg/dL AST 23 21 (15-37) U/L ALT 12 8 L (10-53) U/L Alkaline Phosphatase 121 H 113 (45-117) U/L Total Protein 6.1 L 5.9 L (6.4-8.2) g/dL Albumin 1.9 L 2.2 L (3.4-5.0) g/dL Intake and Output 09/22/18 09/23/18 09/23/18 22:59 06:59 14:59 Intake Total 800 / 800 240 / 240 Output Total 1500 / 1500 Balance 800 / 800 240 / 240 -1500 / -1500 Intake: Oral 800 / 800 240 / 240 Output: Hemodialysis Amount 1500 / 1500 Other: Date of Last Bowel Movement 09/21/18 09/21/18 Weight 64.5 kg Assessment and Plan - Assessment (1) DKA (diabetic ketoacidoses) Code(s): E13.10 - Other specified diabetes mellitus with ketoacidosis without coma Status: Acute (2) Acute UTI Code(s): N39.0 - Urinary tract infection, site not specified Status: Acute (3) ESRD (end stage renal disease) on dialysis Code(s): N18.6 - End stage renal disease; Z99.2 - Dependence on renal dialysis Status: Acute (4) Diabetes Code(s): E11.9 - Type 2 diabetes mellitus without complications Status: Acute (5) Hypertension Code(s): I10 - Essential (primary) hypertension Status: Acute (6) Pain and swelling of right upper extremity Code(s): M79.601 - Pain in right arm; M79.89 - Other specified soft tissue disorders Status: Acute (7) Fluid overload Code(s): E87.70 - Fluid overload, unspecified Status: Acute - Plan Patient had dialysis this morning, 1.5L removed. Patient is stable from cardiac standpoint and can be discharged. Patient to follow up in our office after discharge. Patient was seen and evaluated by Dr. Reddy who participated in care, management and decision-making. - Attending Attestation Patient seen and examined. I reviewed and agree with the evaluation and plan as presented. She remains stable from cardiac standpoint. OK to discharge home; will schedule outpt f/u. (1) DKA (diabetic ketoacidoses) Qualifiers: Diabetes mellitus type: type 2 Diabetes mellitus complication detail: without coma Qualified Code(s): E11.10 - Type 2 diabetes mellitus with ketoacidosis without coma (4) Diabetes Qualifiers: Diabetes mellitus senior living insulin use: with senior living use (7) Fluid overload Qualifiers: Hypervolemia type: unspecified Qualified Code(s): E87.70 - Fluid overload, unspecified
[2018-09-23 14:26] VITALS: PULSE 61
--- NOTE | 2018-09-23 16:28 | P.PNNP ---
Subjective Interval history: Patient seen after HD , feeling better, no pain at AVF site. Physical Exam Vital signs: Vital Signs 09/22/18 17:00 09/22/18 17:54 09/22/18 19:00 Temperature 97.7 F Pulse Rate 68 64 64 Respiratory Rate 16 Blood Pressure 117/56 L Pulse Oximetry 97 09/22/18 20:00 09/22/18 21:00 09/22/18 22:00 Temperature Pulse Rate 64 62 64 Respiratory Rate Blood Pressure Pulse Oximetry 97 09/22/18 22:42 09/22/18 23:00 09/23/18 00:00 Temperature 97.9 F Pulse Rate 65 66 68 Respiratory Rate 16 Blood Pressure 129/59 L Pulse Oximetry 98 09/23/18 01:00 09/23/18 02:00 09/23/18 03:00 Temperature 98.1 F Pulse Rate 68 70 71 Respiratory Rate 18 Blood Pressure 131/60 Pulse Oximetry 97 09/23/18 04:00 09/23/18 05:00 09/23/18 06:00 Temperature Pulse Rate 70 72 72 Respiratory Rate Blood Pressure Pulse Oximetry 09/23/18 07:00 09/23/18 08:00 09/23/18 09:00 Temperature 97.9 F 97.9 F Pulse Rate 74 78 69 Respiratory Rate 16 18 Blood Pressure 156/70 H 163/70 H Pulse Oximetry 95 98 09/23/18 10:00 09/23/18 11:00 09/23/18 12:00 Temperature Pulse Rate 66 77 77 Respiratory Rate Blood Pressure Pulse Oximetry 09/23/18 13:00 09/23/18 14:00 Temperature Pulse Rate 77 61 Respiratory Rate Blood Pressure Pulse Oximetry Intake & Output 09/22/18 09/23/18 09/23/18 18:59 06:59 18:59 Intake Total 800 / 800 240 / 240 Output Total 1500 / 1500 Balance 800 / 800 240 / 240 -1500 / -1500 Weight 64.5 kg Intake: Oral 800 / 800 240 / 240 Output: Hemodialysis Amount 1500 / 1500 Other: Date of Last Bowel Movement 09/21/18 09/21/18 Narrative: GENERAL: Alert and oriented. SKIN: Warm and dry. NECK: Supple, trachea midline. No JVD. CARDIOVASCULAR: Regular rate and rhythm without murmurs, gallops, or rubs. Right AVG RESPIRATORY: Breath sounds diminished equal bilaterally. No accessory muscle use. GASTROINTESTINAL: Abdomen soft, non-tender, nondistended. MUSCULOSKELETAL: No cyanosis, or edema. Small dry wound of the right thumb BACK: Nontender without obvious deformity. No CVA tenderness. Assessment and Plan - Assessment (1) ESRD (end stage renal disease) on dialysis Code(s): N18.6 - End stage renal disease; Z99.2 - Dependence on renal dialysis Status: Acute Plan: Post AVF revision for steal syndrome. HD done today and tolerated well. For possible discharge. Told to restrict fluid intake. (2) Fluid overload Code(s): E87.70 - Fluid overload, unspecified Status: Acute Qualifiers: Hypervolemia type: unspecified Qualified Code(s): E87.70 - Fluid overload, unspecified Plan: Stable, continue UF with HD (3) Hypertension Code(s): I10 - Essential (primary) hypertension Status: Acute Plan: Well controlled, Will monitor
== END 2018-09-23 16:26 | disposition home health service (06) ==
LOC: NEPC 03:24 → NEDA 04:45 → HCVI 05:53 → HCIS 16:35 → HIMC 09-13 08:20 → HCPC 09-14 19:52 → HCIN 09-23 15:14
PROVIDERS: ADMIT Hospitalist; ATTEND Hospitalist
PROC: AVGFTUE (ICD-10-PCS; 2018-09-21 13:56)

== ENCOUNTER 2018-09-27 18:10 | Inpatient (IN) ==
--- NOTE | 2018-09-27 18:43 | ED ---
HPI General Chief Complaint: Shortness of Breath/Dyspnea Stated Complaint: Resp Time Seen by Provider: 09/27/18 18:23 Source: patient and EMS Mode of arrival: EMS Limitations: no limitations History of Present Illness 67-year-old female with history of COPD, diabetes mellitus type 2, CHF, HTN, CAD presents to the emergency department evaluation of shortness of breath and decreased appetite that is been persistent since yesterday. EVAC states concerns regarding the household and says that the area was unkempt and there was a concern for her well-being. They state patient had 80s SaO2 on her normal 3 L/min nasal cannula. They state she gave her 1 DuoNeb, one albuterol treatment and Solu-Medrol 125 mg. They also administered 500 cc normal saline. Patient stated she felt better after the treatment received by Evac. She denies fever, chills, chest pain, abdominal pain, leg pain. She says she has not taken her medication in 2 days because she has "had a decreased appetite". MD Complaint: Reports shortness of breath Onset (ago): day(s) (1) Context: Reports recent illness and medication noncompliance Severity: mild Consistency/Duration: constant Relieving factors: nothing and oxygen (On home O2 3LPM) Exacerbating factors: nothing Known history of: Reports COPD and diabetes Associated symptoms: Reports cough (green sputum) Treatment prior to arrival: Reports bronchodilator (duoneb x1, albuterolx1) and other (solumedrol 125mg) Related Data Home oxygen amount: 3 liters (80s SaO2 at home) Previous Rx's Medication Instructions Recorded albuterol sulfate [Ventolin HFA] 2 puff INHALATION Q6H PRN #1 inh 09/23/18 aspirin 81 mg PO DAILY #30 tab 09/23/18 atorvastatin 80 mg PO HS #30 tab 09/23/18 azithromycin 500 mg PO DAILY #5 tab 09/23/18 budesonide-formoterol [Symbicort] 2 puff INHALATION BID #1 inh 09/23/18 bumetanide 1 mg PO BID 30 Days #60 tab 09/23/18 calcium acetate 667 mg PO TID 30 Days #90 cap 09/23/18 carvedilol 6.25 mg PO BID #60 tab 09/23/18 dextromethorphan-guaifenesin 10 ml PO Q6H #600 ml 09/23/18 diphenhydramine HCl 25 mg PO UNSCH PRN cap 09/23/18 gabapentin 100 mg PO HS #30 cap 09/23/18 hydralazine 100 mg PO TID #90 tab 09/23/18 insulin detemir U-100 [Levemir 5 unit SUBCUT BID #5 vial 09/23/18 U-100 Insulin] ipratropium-albuterol 1 amp NEB Q4HR NEB PRN #180 amp 09/23/18 nifedipine 90 mg PO DAILY #30 tab 09/23/18 nitroglycerin [Nitrostat] 0.4 mg SUBLINGUAL Q5M PRN #100 tab 09/23/18 oxycodone-acetaminophen 1 tab PO Q4H PRN #18 tab 09/23/18 prasugrel 10 mg PO DAILY #30 tab 09/23/18 sennosides-docusate sodium [Senna 2 tab PO BID #120 tab 09/23/18 Plus] vit B comp no.1-whpqa-S-biotin 1 tab PO DAILY #30 tab 09/23/18 [Nephro-Bonita Rx] Allergies Allergy/AdvReac Type Severity Reaction Status Date / Time propoxyphene Allergy Intermediate RASH Verified 07/18/18 07:41 Review of Systems ROS: all other systems reviewed are negative [facility] Medical History Medical History A-V fistula (Acute) Anemia (Acute) CAD (coronary artery disease) (Acute) CAD (coronary artery disease) (Acute) CHF (congestive heart failure) (Acute) CHF (congestive heart failure) (Acute) COPD (chronic obstructive pulmonary disease) (Acute) COPD (chronic obstructive pulmonary disease) (Acute) Chronic back pain (Acute) Diabetes (Acute) Diabetes (Acute) ESRD (end stage renal disease) on dialysis (Acute) End stage kidney disease (Acute) HLD (hyperlipidemia) (Acute) Hemodialysis access, AV graft (Acute) Hemodialysis access, AV graft (Acute) Hyperkalemia (Acute) Hypertension (Acute) Hypoxia (Acute) Social History Social History Substance History: No History of Abuse Second Hand Smoke Exposure: No Smoking Status: Former smoker Tobacco Type: Cigarettes Packs Per Day: 1 (1ppd) Cigarettes Per Day: 20.0 Years Smoked: 35 Pack-Years: 35.00 Smoking End Date: The patient reports that she quit smoking 16 years ago. How Often Do You Have a Drink Containing Alcohol: Never Recent Travel in [place] within the Last 8 Weeks: No Recent Out of Country Travel within the Last 8 Weeks: No Immunization History Tetanus Immunization: <5 Years Exam Narrative Exam Narrative: GENERAL: Well-developed, well-nourished in mild respiratory distress SKIN: Focused skin assessment warm/dry. Pressure ulcers to bilateral feet. Dorsalis pedis pulses present bilateral lower extremities. Cap refill less than 2 seconds HEAD: Atraumatic. Normocephalic. EYES: Pupils equal and round. No scleral icterus. No injection or drainage. ENT: No nasal bleeding or discharge. Mucous membranes pink and moist. NECK: Trachea midline. No JVD. No lymphadenopathy CARDIOVASCULAR: Regular rate and rhythm. No murmur appreciated. RESPIRATORY: Mild accessory muscle use. Rhonchi and rales present. GASTROINTESTINAL: Abdomen soft, non-tender, nondistended. Hepatic and splenic margins not palpable. MUSCULOSKELETAL: No obvious deformities. No clubbing. No cyanosis. No edema. No tenderness palpation of the calves. NEUROLOGICAL: Awake and alert. No obvious cranial nerve deficits. Motor grossly within normal limits. Normal speech. PSYCHIATRIC: Appropriate mood and affect; insight and judgment normal. Course Initial Documented Vital Signs Temperature 96.8 F L 09/27/18 18:31 Pulse Rate 75 10 18:31 Respiratory Rate 13 09/27/18 18:31 Blood Pressure 122/56 L 09/27/18 18:31 Pulse Oximetry 4 L 09/27/18 18:31 Last Documented Vital Signs Temperature 98.2 F 09/28/18 16:45 Pulse Rate 83 09/28/18 16:45 Respiratory Rate 18 09/28/18 16:45 Blood Pressure 149/65 H 09/28/18 16:45 Pulse Oximetry 99 09/28/18 16:45 Medical Decision Making SORAYA Attestation SROAYA supervised visit: Yes Attestation: I, Dr. Hernandez, have reviewed the advance practice practitioner's documentation and am in agreement, met with the patient face to face, made the diagnosis, and the medical decision making was done by me. *My assessment and Findings: DKJulio MDM Narrative Medical decision making narrative: 67-year-old female with a h/o CAD, COPD, DM, HTN, ESRD on HD MWF (last HD Wednesday) presents to the emergency department for evaluation of SOB and decreased appetite, per patient. EVAC states patient SaO2 were in the 80s on her home O2 at 3 L/min. EVAC states patient was given 500 cc normal saline, 1 albuterol and 1 DuoNeb nebulizer, and 125mg Solumedrol with improvement in patient's condition. Her construction crew member is Dr. Toro. She recently had a fistula revision or her left arm last week. Evac expressed concern over the house that patient is living in. They state that they were rats, feces covering the bed, and grandchildren taking care of this patient. They state that the 12-year-old grand son had been assisting this patient with fecal disimpaction and medication administration. HARSH Zaragoza stated she called DCF for concern of the grandson as there were reports of being the caregiver of this patient and home alone with his sibling. Upon arrival, patient was tachypneic but able to talk in nearly full sentences. Fjzes-xn-shag blood sugar was over 600. She had an odor of ketones. Sepsis workup initiated. Initiated vancomycin and Zosyn as patient has fluid on the corner of her mouth, possible aspiration vs vomiting. Pt does not acknowledge and is unaware of this. CXR shows consolidation of left lobe, appears chronic. Administer fluids cautiously as she has a history of CHF. Labs are notable for WBC 10.3, H/H3 0.37/10.3, Stool brown, Hemoccult positive, INR 1.2, Na 130, Chloride 93, CO2 6.0, Anion gap 31, BUN/Cr 2.91, POC BGL >600, Lactic 1.0, BNP 1734, Beta hydroxy 15.15 DKA protocol initiated. Again, administered fluids cautiously. Spoke with Dr. Craig who agreed to the admission. I spoke with Dr. Toro who recommended DKA protocol for now. If she improves, continue DKA protocol, if not dialyze. Medical Screen Exam Complete: Yes Emergency Medical Condition: Yes Differential Diagnosis Differential Diagnosis: Influenza, URI, pneumonia, bronchitis, pneumonitis, bronchospasm Lab Data Result diagrams: 09/27/18 18:41 09/28/18 14:00 Lab Results 09/27/18 09/27/18 09/27/18 Range/Units 18:38 18:41 18:41 WBC 10.3 (4.0-11.0) th/mm3 RBC 3.37 L (4.00-5.30) mil/mm3 Hgb 10.3 L (11.6-15.3) gm/dL Hct 35.5 (35.0-46.0) % MCV 105.1 H (80.0-100.0) fL MCH 30.4 (27.0-34.0) pg MCHC 28.9 L (32.0-36.0) % RDW 17.3 H (11.6-17.2) % Plt Count 236 (150-450) th/mm3 MPV 8.4 (7.0-11.0) fL Prelim Diff (Auto) Slide review pending Neut % (Auto) 81.5 H (16.0-70.0) % Lymph % (Auto) 14.7 (9.0-44.0) % Cottle % (Auto) 2.9 (0.0-8.0) % Eos % (Auto) 0.0 (0.0-4.0) % Baso % (Auto) 0.9 (0.0-2.0) % Neut # (Auto) 8.4 H (1.8-7.7) th/mm3 Lymph # (Auto) 1.5 (1.0-4.8) th/mm3 Cottle # (Auto) 0.3 (0.0-0.9) th/mm3 Eos # (Auto) 0.0 (0.0-0.4) th/mm3 Baso # (Auto) 0.1 (0.0-0.2) th/mm3 WBC Differential . Differential Comment . PT 11.8 H (9.8-11.6) sec INR 1.2 Ratio APTT 30.1 (24.3-30.1) sec Puncture Site Patient Temperature O2 Saturation (90-100) % ABG pH (7.380-7.420) ABG pCO2 (38-42) mmHg ABG pO2 (61-120) mmHg ABG HCO3 (22-26) mmol/L ABG O2 Content (12.0-20.0) Vol % ABG Base Excess (-2-2) mmol/L ABG Methemoglobin (0-2) % Gerber Test Hemoglobin (12.0-16.0) G/DL Carboxyhemoglobin (0-4) % O2 Delivery Device Liter Flow L/M Critical Value Sodium (136-145) meq/L Potassium (3.5-5.1) meq/L Chloride (98-107) meq/L Carbon Dioxide (21.0-32.0) meq/L Anion Gap (5-15) meq/L BUN (7-18) mg/dL Creatinine (0.50-1.00) mg/dL Estimated GFR (>89) mL/min POC Glucose Greater than 600 H* (68-110) mg/dl Random Glucose (74-106) mg/dL Lactic Acid (0.4-2.0) mmol/L Calcium (8.5-10.1) mg/dL Magnesium (1.5-2.5) mg/dL Total Bilirubin (0.2-1.0) mg/dL AST (15-37) U/L ALT (10-53) U/L Alkaline Phosphatase (45-117) U/L B-Natriuretic Peptide (0-100) pg/mL Total Protein (6.4-8.2) g/dL Albumin (3.4-5.0) g/dL Beta-Hydroxybutyric Acd (0.00-0.39) mmol/L Urine Color (Yellw/Straw) Urine Clarity (Clear) Urine pH (5.0-8.5) Ur Specific [place] (1.002-1.035) Urine Protein (Neg-Trace) mg/dL Urine Glucose (UA) (Negative) mg/dL Urine Ketones (Negative) mg/dL Urine Occult Blood (Negative) Urine Nitrate (Negative) Urine Bilirubin (Negative) Urine Urobilinogen (Less than 2) mg/dL Ur Leukocyte Esterase (Negative) Urine RBC (0-3) /hpf Urine WBC (0-5) /hpf Urine WBC Clumps (None) Ur Squamous Epith Cells (0-5) /hpf Urine Yeast (None) /hpf Micro UA Comment Ur Microscopic Review Urine Culture Comments Nasal Screen MRSA (PCR) (Negative) 09/27/18 09/27/18 09/27/18 Range/Units 18:41 18:41 18:41 WBC (4.0-11.0) th/mm3 RBC (4.00-5.30) mil/mm3 Hgb (11.6-15.3) gm/dL Hct (35.0-46.0) % MCV (80.0-100.0) fL MCH (27.0-34.0) pg MCHC (32.0-36.0) % RDW (11.6-17.2) % Plt Count (150-450) th/mm3 MPV (7.0-11.0) fL Prelim Diff (Auto) Neut % (Auto) (16.0-70.0) % Lymph % (Auto) (9.0-44.0) % Cottle % (Auto) (0.0-8.0) % Eos % (Auto) (0.0-4.0) % Baso % (Auto) (0.0-2.0) % Neut # (Auto) (1.8-7.7) th/mm3 Lymph # (Auto) (1.0-4.8) th/mm3 Cottle # (Auto) (0.0-0.9) th/mm3 Eos # (Auto) (0.0-0.4) th/mm3 Baso # (Auto) (0.0-0.2) th/mm3 WBC Differential Differential Comment PT (9.8-11.6) sec INR Ratio APTT (24.3-30.1) sec Puncture Site Patient Temperature O2 Saturation (90-100) % ABG pH (7.380-7.420) ABG pCO2 (38-42) mmHg ABG pO2 (61-120) mmHg ABG HCO3 (22-26) mmol/L ABG O2 Content (12.0-20.0) Vol % ABG Base Excess (-2-2) mmol/L ABG Methemoglobin (0-2) % Gerber Test Hemoglobin (12.0-16.0) G/DL Carboxyhemoglobin (0-4) % O2 Delivery Device Liter Flow L/M Critical Value Sodium 130 L (136-145) meq/L Potassium 4.8 (3.5-5.1) meq/L Chloride 93 L (98-107) meq/L Carbon Dioxide 6.0 L (21.0-32.0) meq/L Anion Gap 31 H (5-15) meq/L BUN 36 H (7-18) mg/dL Creatinine 2.91 H (0.50-1.00) mg/dL Estimated GFR 16 L (>89) mL/min POC Glucose (68-110) mg/dl Random Glucose 577 H* (74-106) mg/dL Lactic Acid 1.0 (0.4-2.0) mmol/L Calcium 8.1 L (8.5-10.1) mg/dL Magnesium 2.2 (1.5-2.5) mg/dL Total Bilirubin 0.5 (0.2-1.0) mg/dL AST 38 H (15-37) U/L ALT 8 L (10-53) U/L Alkaline Phosphatase 147 H (45-117) U/L B-Natriuretic Peptide 1734 H (0-100) pg/mL Total Protein 6.7 D (6.4-8.2) g/dL Albumin 2.1 L (3.4-5.0) g/dL Beta-Hydroxybutyric Acd 15.15 H (0.00-0.39) mmol/L Urine Color (Yellw/Straw) Urine Clarity (Clear) Urine pH (5.0-8.5) Ur Specific [place] (1.002-1.035) Urine Protein (Neg-Trace) mg/dL Urine Glucose (UA) (Negative) mg/dL Urine Ketones (Negative) mg/dL Urine Occult Blood (Negative) Urine Nitrate (Negative) Urine Bilirubin (Negative) Urine Urobilinogen (Less than 2) mg/dL Ur Leukocyte Esterase (Negative) Urine RBC (0-3) /hpf Urine WBC (0-5) /hpf Urine WBC Clumps (None) Ur Squamous Epith Cells (0-5) /hpf Urine Yeast (None) /hpf Micro UA Comment Ur Microscopic Review Urine Culture Comments Nasal Screen MRSA (PCR) (Negative) 09/27/18 09/27/18 09/27/18 Range/Units 18:56 20:51 21:47 WBC (4.0-11.0) th/mm3 RBC (4.00-5.30) mil/mm3 Hgb (11.6-15.3) gm/dL Hct (35.0-46.0) % MCV (80.0-100.0) fL MCH (27.0-34.0) pg MCHC (32.0-36.0) % RDW (11.6-17.2) % Plt Count (150-450) th/mm3 MPV (7.0-11.0) fL Prelim Diff (Auto) Neut % (Auto) (16.0-70.0) % Lymph % (Auto) (9.0-44.0) % Cottle % (Auto) (0.0-8.0) % Eos % (Auto) (0.0-4.0) % Baso % (Auto) (0.0-2.0) % Neut # (Auto) (1.8-7.7) th/mm3 Lymph # (Auto) (1.0-4.8) th/mm3 Cottle # (Auto) (0.0-0.9) th/mm3 Eos # (Auto) (0.0-0.4) th/mm3 Baso # (Auto) (0.0-0.2) th/mm3 WBC Differential Differential Comment PT (9.8-11.6) sec INR Ratio APTT (24.3-30.1) sec Puncture Site Left brachial Patient Temperature 98.6 O2 Saturation 94 (90-100) % ABG pH 7.02 L* (7.380-7.420) ABG pCO2 16 L* (38-42) mmHg ABG pO2 123 H (61-120) mmHg ABG HCO3 4 L* (22-26) mmol/L ABG O2 Content 12.2 (12.0-20.0) Vol % ABG Base Excess -25.2 L (-2-2) mmol/L ABG Methemoglobin 1.0 (0-2) % Gerber Test Present Hemoglobin 9.0 L (12.0-16.0) G/DL Carboxyhemoglobin 1.7 (0-4) % O2 Delivery Device Nasal cannula Liter Flow 6.00 L/M Critical Value Yes Sodium (136-145) meq/L Potassium (3.5-5.1) meq/L Chloride (98-107) meq/L Carbon Dioxide (21.0-32.0) meq/L Anion Gap (5-15) meq/L BUN (7-18) mg/dL Creatinine (0.50-1.00) mg/dL Estimated GFR (>89) mL/min POC Glucose 559 H* (68-110) mg/dl Random Glucose (74-106) mg/dL Lactic Acid (0.4-2.0) mmol/L Calcium (8.5-10.1) mg/dL Magnesium (1.5-2.5) mg/dL Total Bilirubin (0.2-1.0) mg/dL AST (15-37) U/L ALT (10-53) U/L Alkaline Phosphatase (45-117) U/L B-Natriuretic Peptide (0-100) pg/mL Total Protein (6.4-8.2) g/dL Albumin (3.4-5.0) g/dL Beta-Hydroxybutyric Acd (0.00-0.39) mmol/L Urine Color Yellow (Yellw/Straw) Urine Clarity Turbid H (Clear) Urine pH 5.0 (5.0-8.5) Ur Specific [place] 1.016 (1.002-1.035) Urine Protein 500 or greater (Neg-Trace) mg/dL Urine Glucose (UA) 500 or greater (Negative) mg/dL Urine Ketones 20 (Negative) mg/dL Urine Occult Blood Large H (Negative) Urine Nitrate Negative (Negative) Urine Bilirubin Negative (Negative) Urine Urobilinogen Less than 2 (Less than 2) mg/dL Ur Leukocyte Esterase Large H (Negative) Urine RBC 59 H (0-3) /hpf Urine WBC (0-5) /hpf Urine WBC Clumps Many H (None) Ur Squamous Epith Cells 1 (0-5) /hpf Urine Yeast Moderate H (None) /hpf Micro UA Comment Culture indicated Ur Microscopic Review Not Reportable Urine Culture Comments Culture indicated Nasal Screen MRSA (PCR) (Negative) 09/27/18 09/27/18 09/28/18 Range/Units 22:30 23:02 01:00 WBC (4.0-11.0) th/mm3 RBC (4.00-5.30) mil/mm3 Hgb (11.6-15.3) gm/dL Hct (35.0-46.0) % MCV (80.0-100.0) fL MCH (27.0-34.0) pg MCHC (32.0-36.0) % RDW (11.6-17.2) % Plt Count (150-450) th/mm3 MPV (7.0-11.0) fL Prelim Diff (Auto) Neut % (Auto) (16.0-70.0) % Lymph % (Auto) (9.0-44.0) % Cottle % (Auto) (0.0-8.0) % Eos % (Auto) (0.0-4.0) % Baso % (Auto) (0.0-2.0) % Neut # (Auto) (1.8-7.7) th/mm3 Lymph # (Auto) (1.0-4.8) th/mm3 Cottle # (Auto) (0.0-0.9) th/mm3 Eos # (Auto) (0.0-0.4) th/mm3 Baso # (Auto) (0.0-0.2) th/mm3 WBC Differential Differential Comment PT (9.8-11.6) sec INR Ratio APTT (24.3-30.1) sec Puncture Site Patient Temperature O2 Saturation (90-100) % ABG pH (7.380-7.420) ABG pCO2 (38-42) mmHg ABG pO2 (61-120) mmHg ABG HCO3 (22-26) mmol/L ABG O2 Content (12.0-20.0) Vol % ABG Base Excess (-2-2) mmol/L ABG Methemoglobin (0-2) % Gerber Test Hemoglobin (12.0-16.0) G/DL Carboxyhemoglobin (0-4) % O2 Delivery Device Liter Flow L/M Critical Value Sodium (136-145) meq/L Potassium (3.5-5.1) meq/L Chloride (98-107) meq/L Carbon Dioxide (21.0-32.0) meq/L Anion Gap (5-15) meq/L BUN (7-18) mg/dL Creatinine (0.50-1.00) mg/dL Estimated GFR (>89) mL/min POC Glucose 594 H* 574 H* (68-110) mg/dl Random Glucose (74-106) mg/dL Lactic Acid (0.4-2.0) mmol/L Calcium (8.5-10.1) mg/dL Magnesium (1.5-2.5) mg/dL Total Bilirubin (0.2-1.0) mg/dL AST (15-37) U/L ALT (10-53) U/L Alkaline Phosphatase (45-117) U/L B-Natriuretic Peptide (0-100) pg/mL Total Protein (6.4-8.2) g/dL Albumin (3.4-5.0) g/dL Beta-Hydroxybutyric Acd (0.00-0.39) mmol/L Urine Color (Yellw/Straw) Urine Clarity (Clear) Urine pH (5.0-8.5) Ur Specific [place] (1.002-1.035) Urine Protein (Neg-Trace) mg/dL Urine Glucose (UA) (Negative) mg/dL Urine Ketones (Negative) mg/dL Urine Occult Blood (Negative) Urine Nitrate (Negative) Urine Bilirubin (Negative) Urine Urobilinogen (Less than 2) mg/dL Ur Leukocyte Esterase (Negative) Urine RBC (0-3) /hpf Urine WBC (0-5) /hpf Urine WBC Clumps (None) Ur Squamous Epith Cells (0-5) /hpf Urine Yeast (None) /hpf Micro UA Comment Ur Microscopic Review Urine Culture Comments Nasal Screen MRSA (PCR) Not detected (Negative) 09/28/18 09/28/18 09/28/18 Range/Units 01:14 01:58 02:58 WBC (4.0-11.0) th/mm3 RBC (4.00-5.30) mil/mm3 Hgb (11.6-15.3) gm/dL Hct (35.0-46.0) % MCV (80.0-100.0) fL MCH (27.0-34.0) pg MCHC (32.0-36.0) % RDW (11.6-17.2) % Plt Count (150-450) th/mm3 MPV (7.0-11.0) fL Prelim Diff (Auto) Neut % (Auto) (16.0-70.0) % Lymph % (Auto) (9.0-44.0) % Cottle % (Auto) (0.0-8.0) % Eos % (Auto) (0.0-4.0) % Baso % (Auto) (0.0-2.0) % Neut # (Auto) (1.8-7.7) th/mm3 Lymph # (Auto) (1.0-4.8) th/mm3 Cottle # (Auto) (0.0-0.9) th/mm3 Eos # (Auto) (0.0-0.4) th/mm3 Baso # (Auto) (0.0-0.2) th/mm3 WBC Differential Differential Comment PT (9.8-11.6) sec INR Ratio APTT (24.3-30.1) sec Puncture Site Patient Temperature O2 Saturation (90-100) % ABG pH (7.380-7.420) ABG pCO2 (38-42) mmHg ABG pO2 (61-120) mmHg ABG HCO3 (22-26) mmol/L ABG O2 Content (12.0-20.0) Vol % ABG Base Excess (-2-2) mmol/L ABG Methemoglobin (0-2) % Gerber Test Hemoglobin (12.0-16.0) G/DL Carboxyhemoglobin (0-4) % O2 Delivery Device Liter Flow L/M Critical Value Sodium 135 L (136-145) meq/L Potassium 3.8 D (3.5-5.1) meq/L Chloride 97 L (98-107) meq/L Carbon Dioxide 7.2 L (21.0-32.0) meq/L Anion Gap 31 H (5-15) meq/L BUN 40 H (7-18) mg/dL Creatinine 2.97 H (0.50-1.00) mg/dL Estimated GFR 16 L (>89) mL/min POC Glucose 528 H* 478 H* (68-110) mg/dl Random Glucose 565 H* (74-106) mg/dL Lactic Acid (0.4-2.0) mmol/L Calcium 8.2 L (8.5-10.1) mg/dL Magnesium (1.5-2.5) mg/dL Total Bilirubin (0.2-1.0) mg/dL AST (15-37) U/L ALT (10-53) U/L Alkaline Phosphatase (45-117) U/L B-Natriuretic Peptide (0-100) pg/mL Total Protein (6.4-8.2) g/dL Albumin (3.4-5.0) g/dL Beta-Hydroxybutyric Acd (0.00-0.39) mmol/L Urine Color (Yellw/Straw) Urine Clarity (Clear) Urine pH (5.0-8.5) Ur Specific [place] (1.002-1.035) Urine Protein (Neg-Trace) mg/dL Urine Glucose (UA) (Negative) mg/dL Urine Ketones (Negative) mg/dL Urine Occult Blood (Negative) Urine Nitrate (Negative) Urine Bilirubin (Negative) Urine Urobilinogen (Less than 2) mg/dL Ur Leukocyte Esterase (Negative) Urine RBC (0-3) /hpf Urine WBC (0-5) /hpf Urine WBC Clumps (None) Ur Squamous Epith Cells (0-5) /hpf Urine Yeast (None) /hpf Micro UA Comment Ur Microscopic Review Urine Culture Comments Nasal Screen MRSA (PCR) (Negative) 09/28/18 09/28/18 09/28/18 Range/Units 04:00 04:21 05:00 WBC (4.0-11.0) th/mm3 RBC (4.00-5.30) mil/mm3 Hgb (11.6-15.3) gm/dL Hct (35.0-46.0) % MCV (80.0-100.0) fL MCH (27.0-34.0) pg MCHC (32.0-36.0) % RDW (11.6-17.2) % Plt Count (150-450) th/mm3 MPV (7.0-11.0) fL Prelim Diff (Auto) Neut % (Auto) (16.0-70.0) % Lymph % (Auto) (9.0-44.0) % [place] % (Auto) (0.0-8.0) % Eos % (Auto) (0.0-4.0) % Baso % (Auto) (0.0-2.0) % Neut # (Auto) (1.8-7.7) th/mm3 Lymph # (Auto) (1.0-4.8) th/mm3 [place] # (Auto) (0.0-0.9) th/mm3 Eos # (Auto) (0.0-0.4) th/mm3 Baso # (Auto) (0.0-0.2) th/mm3 WBC Differential Differential Comment PT (9.8-11.6) sec INR Ratio APTT (24.3-30.1) sec Puncture Site Patient Temperature O2 Saturation (90-100) % ABG pH (7.380-7.420) ABG pCO2 (38-42) mmHg ABG pO2 (61-120) mmHg ABG HCO3 (22-26) mmol/L ABG O2 Content (12.0-20.0) Vol % ABG Base Excess (-2-2) mmol/L ABG Methemoglobin (0-2) % Gerber Test Hemoglobin (12.0-16.0) G/DL Carboxyhemoglobin (0-4) % O2 Delivery Device Liter Flow L/M Critical Value Sodium 136 (136-145) meq/L Potassium 3.5 (3.5-5.1) meq/L Chloride 95 L (98-107) meq/L Carbon Dioxide 11.6 L (21.0-32.0) meq/L Anion Gap 29 H (5-15) meq/L BUN 39 H (7-18) mg/dL Creatinine 3.07 H (0.50-1.00) mg/dL Estimated GFR 15 L (>89) mL/min POC Glucose 497 H* 451 H* (68-110) mg/dl Random Glucose 466 H* (74-106) mg/dL Lactic Acid (0.4-2.0) mmol/L Calcium 8.3 L (8.5-10.1) mg/dL Magnesium (1.5-2.5) mg/dL Total Bilirubin 0.5 (0.2-1.0) mg/dL AST 57 H (15-37) U/L ALT 8 L (10-53) U/L Alkaline Phosphatase 137 H (45-117) U/L B-Natriuretic Peptide (0-100) pg/mL Total Protein 6.4 (6.4-8.2) g/dL Albumin 2.0 L (3.4-5.0) g/dL Beta-Hydroxybutyric Acd (0.00-0.39) mmol/L Urine Color (Yellw/Straw) Urine Clarity (Clear) Urine pH (5.0-8.5) Ur Specific [place] (1.002-1.035) Urine Protein (Neg-Trace) mg/dL Urine Glucose (UA) (Negative) mg/dL Urine Ketones (Negative) mg/dL Urine Occult Blood (Negative) Urine Nitrate (Negative) Urine Bilirubin (Negative) Urine Urobilinogen (Less than 2) mg/dL Ur Leukocyte Esterase (Negative) Urine RBC (0-3) /hpf Urine WBC (0-5) /hpf Urine WBC Clumps (None) Ur Squamous Epith Cells (0-5) /hpf Urine Yeast (None) /hpf Micro UA Comment Ur Microscopic Review Urine Culture Comments Nasal Screen MRSA (PCR) (Negative) 09/28/18 09/28/18 09/28/18 Range/Units 05:58 06:56 08:17 WBC (4.0-11.0) th/mm3 RBC (4.00-5.30) mil/mm3 Hgb (11.6-15.3) gm/dL Hct (35.0-46.0) % MCV (80.0-100.0) fL MCH (27.0-34.0) pg MCHC (32.0-36.0) % RDW (11.6-17.2) % Plt Count (150-450) th/mm3 MPV (7.0-11.0) fL Prelim Diff (Auto) Neut % (Auto) (16.0-70.0) % Lymph % (Auto) (9.0-44.0) % [place] % (Auto) (0.0-8.0) % Eos % (Auto) (0.0-4.0) % Baso % (Auto) (0.0-2.0) % Neut # (Auto) (1.8-7.7) th/mm3 Lymph # (Auto) (1.0-4.8) th/mm3 [place] # (Auto) (0.0-0.9) th/mm3 Eos # (Auto) (0.0-0.4) th/mm3 Baso # (Auto) (0.0-0.2) th/mm3 WBC Differential Differential Comment PT (9.8-11.6) sec INR Ratio APTT (24.3-30.1) sec Puncture Site Patient Temperature O2 Saturation (90-100) % ABG pH (7.380-7.420) ABG pCO2 (38-42) mmHg ABG pO2 (61-120) mmHg ABG HCO3 (22-26) mmol/L ABG O2 Content (12.0-20.0) Vol % ABG Base Excess (-2-2) mmol/L ABG Methemoglobin (0-2) % [place] Test Hemoglobin (12.0-16.0) G/DL Carboxyhemoglobin (0-4) % O2 Delivery Device Liter Flow L/M Critical Value Sodium (136-145) meq/L Potassium (3.5-5.1) meq/L Chloride (98-107) meq/L Carbon Dioxide (21.0-32.0) meq/L Anion Gap (5-15) meq/L BUN (7-18) mg/dL Creatinine (0.50-1.00) mg/dL Estimated GFR (>89) mL/min POC Glucose 436 H 437 H 416 H (68-110) mg/dl Random Glucose (74-106) mg/dL Lactic Acid (0.4-2.0) mmol/L Calcium (8.5-10.1) mg/dL Magnesium (1.5-2.5) mg/dL Total Bilirubin (0.2-1.0) mg/dL AST (15-37) U/L ALT (10-53) U/L Alkaline Phosphatase (45-117) U/L B-Natriuretic Peptide (0-100) pg/mL Total Protein (6.4-8.2) g/dL Albumin (3.4-5.0) g/dL Beta-Hydroxybutyric Acd (0.00-0.39) mmol/L Urine Color (Yellw/Straw) Urine Clarity (Clear) Urine pH (5.0-8.5) Ur Specific [place] (1.002-1.035) Urine Protein (Neg-Trace) mg/dL Urine Glucose (UA) (Negative) mg/dL Urine Ketones (Negative) mg/dL Urine Occult Blood (Negative) Urine Nitrate (Negative) Urine Bilirubin (Negative) Urine Urobilinogen (Less than 2) mg/dL Ur Leukocyte Esterase (Negative) Urine RBC (0-3) /hpf Urine WBC (0-5) /hpf Urine WBC Clumps (None) Ur Squamous Epith Cells (0-5) /hpf Urine Yeast (None) /hpf Micro UA Comment Ur Microscopic Review Urine Culture Comments Nasal Screen MRSA (PCR) (Negative) 09/28/18 09/28/18 09/28/18 Range/Units 09:06 10:10 11:16 WBC (4.0-11.0) th/mm3 RBC (4.00-5.30) mil/mm3 Hgb (11.6-15.3) gm/dL Hct (35.0-46.0) % MCV (80.0-100.0) fL MCH (27.0-34.0) pg MCHC (32.0-36.0) % RDW (11.6-17.2) % Plt Count (150-450) th/mm3 MPV (7.0-11.0) fL Prelim Diff (Auto) Neut % (Auto) (16.0-70.0) % Lymph % (Auto) (9.0-44.0) % Cottle % (Auto) (0.0-8.0) % Eos % (Auto) (0.0-4.0) % Baso % (Auto) (0.0-2.0) % Neut # (Auto) (1.8-7.7) th/mm3 Lymph # (Auto) (1.0-4.8) th/mm3 Cottle # (Auto) (0.0-0.9) th/mm3 Eos # (Auto) (0.0-0.4) th/mm3 Baso # (Auto) (0.0-0.2) th/mm3 WBC Differential Differential Comment PT (9.8-11.6) sec INR Ratio APTT (24.3-30.1) sec Puncture Site Patient Temperature O2 Saturation (90-100) % ABG pH (7.380-7.420) ABG pCO2 (38-42) mmHg ABG pO2 (61-120) mmHg ABG HCO3 (22-26) mmol/L ABG O2 Content (12.0-20.0) Vol % ABG Base Excess (-2-2) mmol/L ABG Methemoglobin (0-2) % Gerber Test Hemoglobin (12.0-16.0) G/DL Carboxyhemoglobin (0-4) % O2 Delivery Device Liter Flow L/M Critical Value Sodium (136-145) meq/L Potassium (3.5-5.1) meq/L Chloride (98-107) meq/L Carbon Dioxide (21.0-32.0) meq/L Anion Gap (5-15) meq/L BUN (7-18) mg/dL Creatinine (0.50-1.00) mg/dL Estimated GFR (>89) mL/min POC Glucose 284 H 242 H 183 H (68-110) mg/dl Random Glucose (74-106) mg/dL Lactic Acid (0.4-2.0) mmol/L Calcium (8.5-10.1) mg/dL Magnesium (1.5-2.5) mg/dL Total Bilirubin (0.2-1.0) mg/dL AST (15-37) U/L ALT (10-53) U/L Alkaline Phosphatase (45-117) U/L B-Natriuretic Peptide (0-100) pg/mL Total Protein (6.4-8.2) g/dL Albumin (3.4-5.0) g/dL Beta-Hydroxybutyric Acd (0.00-0.39) mmol/L Urine Color (Yellw/Straw) Urine Clarity (Clear) Urine pH (5.0-8.5) Ur Specific [place] (1.002-1.035) Urine Protein (Neg-Trace) mg/dL Urine Glucose (UA) (Negative) mg/dL Urine Ketones (Negative) mg/dL Urine Occult Blood (Negative) Urine Nitrate (Negative) Urine Bilirubin (Negative) Urine Urobilinogen (Less than 2) mg/dL Ur Leukocyte Esterase (Negative) Urine RBC (0-3) /hpf Urine WBC (0-5) /hpf Urine WBC Clumps (None) Ur Squamous Epith Cells (0-5) /hpf Urine Yeast (None) /hpf Micro UA Comment Ur Microscopic Review Urine Culture Comments Nasal Screen MRSA (PCR) (Negative) 09/28/18 09/28/18 09/28/18 Range/Units 12:03 13:00 13:59 WBC (4.0-11.0) th/mm3 RBC (4.00-5.30) mil/mm3 Hgb (11.6-15.3) gm/dL Hct (35.0-46.0) % MCV (80.0-100.0) fL MCH (27.0-34.0) pg MCHC (32.0-36.0) % RDW (11.6-17.2) % Plt Count (150-450) th/mm3 MPV (7.0-11.0) fL Prelim Diff (Auto) Neut % (Auto) (16.0-70.0) % Lymph % (Auto) (9.0-44.0) % Cottle % (Auto) (0.0-8.0) % Eos % (Auto) (0.0-4.0) % Baso % (Auto) (0.0-2.0) % Neut # (Auto) (1.8-7.7) th/mm3 Lymph # (Auto) (1.0-4.8) th/mm3 Cottle # (Auto) (0.0-0.9) th/mm3 Eos # (Auto) (0.0-0.4) th/mm3 Baso # (Auto) (0.0-0.2) th/mm3 WBC Differential Differential Comment PT (9.8-11.6) sec INR Ratio APTT (24.3-30.1) sec Puncture Site Patient Temperature O2 Saturation (90-100) % ABG pH (7.380-7.420) ABG pCO2 (38-42) mmHg ABG pO2 (61-120) mmHg ABG HCO3 (22-26) mmol/L ABG O2 Content (12.0-20.0) Vol % ABG Base Excess (-2-2) mmol/L ABG Methemoglobin (0-2) % Gerber Test Hemoglobin (12.0-16.0) G/DL Carboxyhemoglobin (0-4) % O2 Delivery Device Liter Flow L/M Critical Value Sodium (136-145) meq/L Potassium (3.5-5.1) meq/L Chloride (98-107) meq/L Carbon Dioxide (21.0-32.0) meq/L Anion Gap (5-15) meq/L BUN (7-18) mg/dL Creatinine (0.50-1.00) mg/dL Estimated GFR (>89) mL/min POC Glucose 207 H 170 H 149 H (68-110) mg/dl Random Glucose (74-106) mg/dL Lactic Acid (0.4-2.0) mmol/L Calcium (8.5-10.1) mg/dL Magnesium (1.5-2.5) mg/dL Total Bilirubin (0.2-1.0) mg/dL AST (15-37) U/L ALT (10-53) U/L Alkaline Phosphatase (45-117) U/L B-Natriuretic Peptide (0-100) pg/mL Total Protein (6.4-8.2) g/dL Albumin (3.4-5.0) g/dL Beta-Hydroxybutyric Acd (0.00-0.39) mmol/L Urine Color (Yellw/Straw) Urine Clarity (Clear) Urine pH (5.0-8.5) Ur Specific [place] (1.002-1.035) Urine Protein (Neg-Trace) mg/dL Urine Glucose (UA) (Negative) mg/dL Urine Ketones (Negative) mg/dL Urine Occult Blood (Negative) Urine Nitrate (Negative) Urine Bilirubin (Negative) Urine Urobilinogen (Less than 2) mg/dL Ur Leukocyte Esterase (Negative) Urine RBC (0-3) /hpf Urine WBC (0-5) /hpf Urine WBC Clumps (None) Ur Squamous Epith Cells (0-5) /hpf Urine Yeast (None) /hpf Micro UA Comment Ur Microscopic Review Urine Culture Comments Nasal Screen MRSA (PCR) (Negative) 09/28/18 09/28/18 09/28/18 Range/Units 14:00 14:39 15:17 WBC (4.0-11.0) th/mm3 RBC (4.00-5.30) mil/mm3 Hgb (11.6-15.3) gm/dL Hct (35.0-46.0) % MCV (80.0-100.0) fL MCH (27.0-34.0) pg MCHC (32.0-36.0) % RDW (11.6-17.2) % Plt Count (150-450) th/mm3 MPV (7.0-11.0) fL Prelim Diff (Auto) Neut % (Auto) (16.0-70.0) % Lymph % (Auto) (9.0-44.0) % Cottle % (Auto) (0.0-8.0) % Eos % (Auto) (0.0-4.0) % Baso % (Auto) (0.0-2.0) % Neut # (Auto) (1.8-7.7) th/mm3 Lymph # (Auto) (1.0-4.8) th/mm3 Cottle # (Auto) (0.0-0.9) th/mm3 Eos # (Auto) (0.0-0.4) th/mm3 Baso # (Auto) (0.0-0.2) th/mm3 WBC Differential Differential Comment PT (9.8-11.6) sec INR Ratio APTT (24.3-30.1) sec Puncture Site Patient Temperature O2 Saturation (90-100) % ABG pH (7.380-7.420) ABG pCO2 (38-42) mmHg ABG pO2 (61-120) mmHg ABG HCO3 (22-26) mmol/L ABG O2 Content (12.0-20.0) Vol % ABG Base Excess (-2-2) mmol/L ABG Methemoglobin (0-2) % Gerber Test Hemoglobin (12.0-16.0) G/DL Carboxyhemoglobin (0-4) % O2 Delivery Device Liter Flow L/M Critical Value Sodium 140 (136-145) meq/L Potassium 3.6 (3.5-5.1) meq/L Chloride 101 (98-107) meq/L Carbon Dioxide 30.0 D (21.0-32.0) meq/L Anion Gap 9 (5-15) meq/L BUN 26 H (7-18) mg/dL Creatinine 2.21 H (0.50-1.00) mg/dL Estimated GFR 22 L (>89) mL/min POC Glucose 143 H 140 H (68-110) mg/dl Random Glucose 151 H D (74-106) mg/dL Lactic Acid (0.4-2.0) mmol/L Calcium 8.4 L (8.5-10.1) mg/dL Magnesium (1.5-2.5) mg/dL Total Bilirubin (0.2-1.0) mg/dL AST (15-37) U/L ALT (10-53) U/L Alkaline Phosphatase (45-117) U/L B-Natriuretic Peptide (0-100) pg/mL Total Protein (6.4-8.2) g/dL Albumin (3.4-5.0) g/dL Beta-Hydroxybutyric Acd (0.00-0.39) mmol/L Urine Color (Yellw/Straw) Urine Clarity (Clear) Urine pH (5.0-8.5) Ur Specific [place] (1.002-1.035) Urine Protein (Neg-Trace) mg/dL Urine Glucose (UA) (Negative) mg/dL Urine Ketones (Negative) mg/dL Urine Occult Blood (Negative) Urine Nitrate (Negative) Urine Bilirubin (Negative) Urine Urobilinogen (Less than 2) mg/dL Ur Leukocyte Esterase (Negative) Urine RBC (0-3) /hpf Urine WBC (0-5) /hpf Urine WBC Clumps (None) Ur Squamous Epith Cells (0-5) /hpf Urine Yeast (None) /hpf Micro UA Comment Ur Microscopic Review Urine Culture Comments Nasal Screen MRSA (PCR) (Negative) 09/28/18 09/28/18 09/28/18 Range/Units 15:35 16:02 17:37 WBC (4.0-11.0) th/mm3 RBC (4.00-5.30) mil/mm3 Hgb (11.6-15.3) gm/dL Hct (35.0-46.0) % MCV (80.0-100.0) fL MCH (27.0-34.0) pg MCHC (32.0-36.0) % RDW (11.6-17.2) % Plt Count (150-450) th/mm3 MPV (7.0-11.0) fL Prelim Diff (Auto) Neut % (Auto) (16.0-70.0) % Lymph % (Auto) (9.0-44.0) % Cottle % (Auto) (0.0-8.0) % Eos % (Auto) (0.0-4.0) % Baso % (Auto) (0.0-2.0) % Neut # (Auto) (1.8-7.7) th/mm3 Lymph # (Auto) (1.0-4.8) th/mm3 Cottle # (Auto) (0.0-0.9) th/mm3 Eos # (Auto) (0.0-0.4) th/mm3 Baso # (Auto) (0.0-0.2) th/mm3 WBC Differential Differential Comment PT (9.8-11.6) sec INR Ratio APTT (24.3-30.1) sec Puncture Site Patient Temperature O2 Saturation (90-100) % ABG pH (7.380-7.420) ABG pCO2 (38-42) mmHg ABG pO2 (61-120) mmHg ABG HCO3 (22-26) mmol/L ABG O2 Content (12.0-20.0) Vol % ABG Base Excess (-2-2) mmol/L ABG Methemoglobin (0-2) % Gerber Test Hemoglobin (12.0-16.0) G/DL Carboxyhemoglobin (0-4) % O2 Delivery Device Liter Flow L/M Critical Value Sodium (136-145) meq/L Potassium (3.5-5.1) meq/L Chloride (98-107) meq/L Carbon Dioxide (21.0-32.0) meq/L Anion Gap (5-15) meq/L BUN (7-18) mg/dL Creatinine (0.50-1.00) mg/dL Estimated GFR (>89) mL/min POC Glucose 141 H 141 H 146 H (68-110) mg/dl Random Glucose (74-106) mg/dL Lactic Acid (0.4-2.0) mmol/L Calcium (8.5-10.1) mg/dL Magnesium (1.5-2.5) mg/dL Total Bilirubin (0.2-1.0) mg/dL AST (15-37) U/L ALT (10-53) U/L Alkaline Phosphatase (45-117) U/L B-Natriuretic Peptide (0-100) pg/mL Total Protein (6.4-8.2) g/dL Albumin (3.4-5.0) g/dL Beta-Hydroxybutyric Acd (0.00-0.39) mmol/L Urine Color (Yellw/Straw) Urine Clarity (Clear) Urine pH (5.0-8.5) Ur Specific [place] (1.002-1.035) Urine Protein (Neg-Trace) mg/dL Urine Glucose (UA) (Negative) mg/dL Urine Ketones (Negative) mg/dL Urine Occult Blood (Negative) Urine Nitrate (Negative) Urine Bilirubin (Negative) Urine Urobilinogen (Less than 2) mg/dL Ur Leukocyte Esterase (Negative) Urine RBC (0-3) /hpf Urine WBC (0-5) /hpf Urine WBC Clumps (None) Ur Squamous Epith Cells (0-5) /hpf Urine Yeast (None) /hpf Micro UA Comment Ur Microscopic Review Urine Culture Comments Nasal Screen MRSA (PCR) (Negative) Imaging Data Radiologist's impression: Chest X-Ray 09/27/18 18:23 CONCLUSION: Slight improved aeration. Discharge Plan Discharge Disposition Patient Disposition: 30 Still Patient Discharge Condition Condition: Fair Discharge Details Diagnosis: DKA (diabetic ketoacidoses), Pneumonia Physicians Team ED Provider: Quirino Hernandez ED Midlevel Provider: Lynette Ocasio Primary Care Provider: UNKNOWN, Attending Provider: Jordon Craig Other Providers: Meek Handley ; [facility],Agency Status ED Status: Left Department Discharge Information Discharge Date/Time: 09/27/18 22:41
[2018-09-27] MEDS ORDERED: Vancomycin Inj 1 GM/200 ML PIGGYBACK IV.SIG ONE (18:49)
[2018-09-27] MEDS ORDERED: Piperacil/Tazo 2.25 GM Premix 50 ML IV.SIG ONE (18:49)
[2018-09-27] MEDS ORDERED: Sodium Chlor 0.9% Inj 500 ML IV.SIG SCH (19:00)
[2018-09-27] MEDS ORDERED: Vancomycin Inj 1,000 MG in Sodium Chlor 0.9% Inj 250 ML IV.SIG ONE (19:00)
[2018-09-27 19:21] LABS: Activated Partial Thrombo Time 30.1 sec (24.3-30.1); INR 1.2 Ratio; Prothrombin Time 11.8 sec (9.8-11.6)
[2018-09-27 19:23] LABS: Baso # (Auto) 0.1 th/mm3 (0.0-0.2); Baso % (Auto) 0.9 % (0.0-2.0); Hematocrit 35.5 % (35.0-46.0); Hemoglobin 10.3 gm/dL (11.6-15.3); Lymph # (Auto) 1.5 th/mm3 (1.0-4.8); Lymph % (Auto) 14.7 % (9.0-44.0); Mean Corpuscular Hemoglobin 30.4 pg (27.0-34.0); Mean Corpuscular Volume 105.1 fL (80.0-100.0); Mean Platelet Volume 8.4 fL (7.0-11.0); Mono # (Auto) 0.3 th/mm3 (0.0-0.9); Mono % (Auto) 2.9 % (0.0-8.0); Neut # (Auto) 8.4 th/mm3 (1.8-7.7); Neut % (Auto) 81.5 % (16.0-70.0); Platelet Count 236 th/mm3 (150-450); Red Blood Count 3.37 mil/mm3 (4.00-5.30); Red Cell Distribution Width 17.3 % (11.6-17.2); White Blood Count 10.3 th/mm3 (4.0-11.0)
[2018-09-27 19:26] LABS: Mean Corpuscular HGB Conc 28.9 % (32.0-36.0)
[2018-09-27 19:33] LABS: Bilirubin,Urine Negative (Negative); Clarity,Urine Turbid (Clear); Color,Urine Yellow (Yellw/Straw); Glucose,Urine (UA) 500 or Greater mg/dL (Negative); Leukocyte Esterase,Urine Large (Negative); Nitrite,Urine Negative (Negative); Specific Gravity,Urine 1.016 (1.002-1.035); Squamous Epithelial Cell,Urine 1 /hpf (0-5)
[2018-09-27 19:41] LABS: Alanine Aminotransferase 8 U/L (10-53); Albumin 2.1 g/dL (3.4-5.0); Alkaline Phosphatase 147 U/L (45-117); Anion Gap 31 meq/L (5-15); Aspartate Aminotransferase 38 U/L (15-37); Beta Hydroxybutyric Acid 15.15 mmol/L (0.00-0.39); Blood Urea Nitrogen 36 mg/dL (7-18); Calcium 8.1 mg/dL (8.5-10.1); Chloride 93 meq/L (98-107); Glomerular Filtration Rate 16 mL/min (>89); Magnesium 2.2 mg/dL (1.5-2.5); Sodium 130 meq/L (136-145); Total Protein 6.7 g/dL (6.4-8.2)
--- NOTE | 2018-09-27 19:48 | XR ---
EXAM DATE: 09/27/2018 7:43 PM EDT AGE/SEX: 67 years / Female INDICATIONS: Short of breath. CLINICAL DATA: This is the patient's initial encounter. Patient reports that signs and symptoms have been present for 1 day and indicates a pain score of 5/10. MEDICAL/SURGICAL HISTORY: . Av fistula, anemia, cad, chf, chronic back pain, copd, dm, esrd, h emodialysis, hyperlipidemia, hyperkalemia, hypertension, hypoxia. . laminectomy, vag hysterectomy, c section, laser refr sx, tonsillectomy, appendectomy, heart artery stent [place] [facility] [place]. . FINDINGS: There is cardiomegaly. Right lung is clear. Left basilar consolidation and left effusion identified. There is slight improved aeration of the left lower lobe. Osseous structures are intact. CONCLUSION: Slight improved aeration. Electronically signed by: Roberto Wilson MD 09/27/2018 7:46 PM EDT
[2018-09-27 19:50] LABS: Potassium 4.8 meq/L (3.5-5.1)
[2018-09-27 19:52] LABS: Glucose,Random 577 mg/dL (74-106)
[2018-09-27] MEDS ORDERED: Potassium Chlor 40 mEq Premix 40 MEQ/100 ML PIGGYBACK IV.SIG PRN ×2 (20:37)
[2018-09-27] MEDS ORDERED: Sodium Phosphate Inj 15 MMOL in Sodium Chlor 0.9% Inj 100 ML IV.SIG PRN (20:37)
[2018-09-27] MEDS ORDERED: Potassium Chlor 20 mEq Premix 20 MEQ/100 ML PIGGYBACK IV.SIG PRN ×5 (20:37)
[2018-09-27 21:06] LABS: ABG Base Excess -25.2 mmol/L (-2-2); ABG PCO2 16 mmHg (38-42); ABG PO2 123 mmHg (61-120)
[2018-09-27] MEDS ORDERED: Sodium Bicarbonate 8.4% Inj 50 MEQ/50 ML Syringe IV.PUSH ONE (21:10)
[2018-09-27] MEDS ORDERED: Nitroglycerin SL (Override) 0.4 MG Tab SL PRN (21:27)
--- NOTE | 2018-09-27 21:36 | P.HPCC ---
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 Apparently she was just discharged from hospital approximately 4 days ago. Compliance with medication and insulin is a concern as EVAC noticed her house was unkempt. Her oxygen saturation was in the 80s on 3 L nasal cannula. Patient received 1 DuoNeb, one albuterol treatment and Solu-Medrol 125 mg and 500 cc normal saline by EMS. Further evaluation in the ED showed that patient was in severe acidosis. Her initial blood sugar was more than 600, beta hydroxybutyrate was more than 15, her pH was 7, PCO2 was 16 PO2 103 and bicarb on ABG was 4 bicarb on chemistry was 6. DKA protocol was initiated and critical care medicine was requested to admit the patient I evaluate the patient in the ED. Currently patient appears ill, septic. She had been started on DKA protocol. Lim ordered by ED as the patient still makes urine. Dr. Toro had been contacted. UA shows evidence of UTI and moderate yeast. Patient had received vancomycin and Zosyn. Chest x-ray shows left-sided effusion which is decreased in size compared to before. She has chronic effusion. I will continue Zosyn and start her on Micafungin for fungal UTI. - Diagnosis (1) DKA (diabetic ketoacidoses) (2) Sepsis (3) Respiratory insufficiency (4) Acute UTI (5) ESRD on dialysis (6) Pleural effusion (7) DM (diabetes mellitus) (8) CHF (congestive heart failure) Inpatient Certification: I certify that the inpatient services were ordered in accordance with Medicare regulations governing the order. 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 fistula Anemia CAD (coronary artery disease) CAD (coronary artery disease) CHF (congestive heart failure) CHF (congestive heart failure) COPD (chronic obstructive pulmonary disease) COPD (chronic obstructive pulmonary disease) Chronic back pain Diabetes Diabetes ESRD (end stage renal disease) on dialysis End stage kidney disease HLD (hyperlipidemia) Hemodialysis access, AV graft Hemodialysis access, AV graft Hyperkalemia Hypertension Hypoxia - Surgical History Surgical History: Surgical History (Last Reviewed 09/27/18 @ 18:23 by Esperanza Hill) H/O laminectomy H/O vaginal hysterectomy H/O: History of laser refractive surgery History of tonsillectomy Hx of appendectomy Hx of heart artery stent Stented coronary artery - Family History Family History: Family History (Last Reviewed 09/23/18 @ 10:11 by Michela Abreu) Other ALS (amyotrophic lateral sclerosis) Multiple sclerosis - Tobacco History Second Hand Smoke Exposure: No Smoking Status: Former smoker Tobacco Type: Cigarettes Packs Per Day: 1 (1ppd) Years Smoked: 35 Smoking End Date: The patient reports that she quit smoking 16 years ago. - Alcohol History How Often Do You Have a Drink Containing Alcohol: Never - Substance Use History Substance History: No History of Abuse - Travel History Recent Travel in the [place] Within the Last 8 Weeks: No Recent Travel Out of the Country Within the Last 8 Weeks: No - Immunization History Tetanus Immunization: <5 Years Medications and Allergies Active Medications: Active Medications Aspirin (Ecotrin) 81 mg PO DAILY [facility] Atorvastatin Calcium (Lipitor) 80 mg PO HS [facility] Azithromycin (Zithromax) 500 mg PO DAILY [facility] Budesonide/Formoterol Fumarate (Symbicort 160/4.5 Mcg Inh) 2 puff INH BID [facility] Calcium Acetate (Phoslo) 667 mg PO TID [facility] Carvedilol (Coreg) 6.25 mg PO BID [facility] Chlorhexidine Gluconate (Chlorhexidine 2% Cloth) 3 pack TOPICAL DAILY@0400 [facility] Stop: 10/03/18 03:59 Chlorhexidine Gluconate (Chlorhexidine 2% Cloth) 3 pack TOPICAL DAILY@0400 PRN PRN Reason: Extra cloth needed Stop: 10/03/18 03:59 Gabapentin (Neurontin) 100 mg PO HS [facility] Sodium Chloride (Ns Inj) 500 mls @ 0 mls/hr IV.SIG BOLUS [facility] Last Infusion: 09/27/18 20:25 Dose: Infused Insulin Human Regular 100 unit (/ Sodium Chloride) 100 mls @ 5 mls/hr IV.CONT TITRATE PRN; Protocol PRN Reason: See protocol Potassium Chloride (Kcl 20 Meq Premix Inj) 20 meq in 100 mls @ 100 mls/hr IV.SIG Q1H PRN PRN Reason: for K+ 4.5 to 5 Potassium Chloride (Kcl 20 Meq Premix Inj) 20 meq in 100 mls @ 50 mls/hr IV.SIG Q2H PRN PRN Reason: for K+ 4.5 to 5 Potassium Chloride (Kcl 20 Meq Premix Inj) 20 meq in 100 mls @ 100 mls/hr IV.SIG Q1H PRN PRN Reason: for K+ 3.5 to 4.4 Potassium Chloride (Kcl 20 Meq Premix Inj) 20 meq in 100 mls @ 50 mls/hr IV.SIG Q2H PRN PRN Reason: for K+ 3.5 to 4.4 Potassium Chloride (Kcl 20 Meq Premix Inj) 20 meq in 100 mls @ 50 mls/hr IV.SIG Q2H PRN PRN Reason: for Initial K+ ONLY < 3.5 Potassium Chloride (Kcl 40 Meq Premix Inj) 40 meq in 100 mls @ 100 mls/hr IV.SIG Q1H PRN PRN Reason: for Initial K+ ONLY < 3.5 Potassium Chloride (Kcl 40 Meq Premix Inj) 40 meq in 100 mls @ 50 mls/hr IV.SIG Q2H PRN PRN Reason: for Subsequent K+ < 3.5 Sodium Phosphate 15 mmol/ (Sodium Chloride) 105 mls @ 25 mls/hr IV.SIG UNSCH PRN PRN Reason: for Phosphate Level < 1.0 Dextrose/Sodium Chloride (D5w/Normal Saline Inj) 1,000 mls @ 200 mls/hr IV.CONT .Q5H [facility] Potassium Chloride (Kcl 20 Meq Premix Inj) 20 meq in 100 mls @ 50 mls/hr IV.SIG Q2H PRN PRN Reason: for Subsequent K+ < 3.5 Micafungin Sodium 150 mg/ (Sodium Chloride) 100 mls @ 100 mls/hr IV.SIG Q24H [facility] Nitroglycerin (Nitrostat Sl (Override)) 0.4 mg SL Q5M PRN PRN Reason: Chest Pain Prasugrel (Effient) 10 mg PO DAILY [facility] Sodium Bicarbonate (Sodium Bicarbonate 8.4% Inj) 100 meq IV.PUSH UNSCH PRN PRN Reason: for pH less than 6.9 Sodium Bicarbonate (Sodium Bicarbonate 8.4% Inj) 50 meq IV.PUSH UNSCH PRN PRN Reason: for pH 6.9 to 7.0 Allergies Allergy/AdvReac Type Severity Reaction Status Date / Time propoxyphene Allergy Intermediate RASH Verified 07/18/18 07:41 Results - Labs CBC & Chem 7: 09/27/18 18:41 09/27/18 18:41 Labs: Short CBC 09/27/18 Range/Units 18:41 WBC 10.3 (4.0-11.0) th/mm3 Hgb 10.3 L (11.6-15.3) gm/dL Hct 35.5 (35.0-46.0) % Plt Count 236 (150-450) th/mm3 BMP 09/27/18 18:41 Sodium 130 L Potassium 4.8 Chloride 93 L Carbon Dioxide 6.0 L BUN 36 H Creatinine 2.91 H Calcium 8.1 L Liver Function 09/27/18 Range/Units 18:41 Total Bilirubin 0.5 (0.2-1.0) mg/dL AST 38 H (15-37) U/L ALT 8 L (10-53) U/L Alkaline Phosphatase 147 H (45-117) U/L Albumin 2.1 L (3.4-5.0) g/dL Urine 09/27/18 Range/Units 18:56 Urine Color Yellow (Yellw/Straw) Urine Clarity Turbid H (Clear) Urine pH 5.0 (5.0-8.5) Ur Specific [place] 1.016 (1.002-1.035) Urine Protein 500 or greater (Neg-Trace) mg/dL Urine Glucose (UA) 500 or greater (Negative) mg/dL - Imaging Impressions Chest X-Ray 09/27/18 18:23 CONCLUSION: Slight improved aeration. Exam Vital signs: Vital Signs 09/27/18 18:31 09/27/18 18:34 Temperature 96.8 F L Pulse Rate 75 Respiratory Rate 13 Blood Pressure 122/56 L Pulse Oximetry 4 L 97 Intake & Output 10/09/27/18 09/28/18 06:59 18:59 06:59 Intake Total 750 / 750 Balance 750 / 750 Weight 50.349 kg Intake: IV 750 / 750 NS Inj 500 ML @ Wide Open IV. 500 / 500 SIG BOLUS [facility] Rx#:[id number] Vancomycin Inj 1,000 MG In NS 250 / 250 Inj 250 ML @ 200 mls/hr IV.SIG ONCE ONE Rx#:[id number] Narrative: GENERAL: Ill-appearing 67-year-old female who is lying on bed slightly short of breath SKIN: Warm and dry. NECK: Supple, trachea midline. No JVD. CARDIOVASCULAR: Regular rate and rhythm without murmurs, gallops, or rubs. RESPIRATORY: Breath sounds diminished equal bilaterally. No accessory muscle use. GASTROINTESTINAL: Abdomen soft, non-tender, nondistended. MUSCULOSKELETAL: No cyanosis, or edema. Right AVG. multiple eschars on bilateral foot NEURO: Alert and oriented. Follows commands no focal deficits Septic Shock Reassessment Septic shock perfusion: reassessment completed Caprini VTE Risk Assessment Caprini VTE Risk Assessment: Moderate/High Risk (score >= 2) Caprini Risk Assessment Model: Point Value = 1 Point Value = 2 Point Value = 3 Point Value = 5 Age 41-60 Minor surgery BMI > 25 kg/m2 Swollen legs Varicose veins or History of unexplained or recurrent spontaneous Oral contraceptives or hormone replacement Sepsis (< 1 month) Serious lung disease, including pneumonia (< 1 month) Abnormal pulmonary function Acute myocardial infarction Congestive heart failure (< 1 month) History of inflammatory bowel disease Medical patient at bed rest Age 61-74 Arthroscopic surgery Major open surgery (> 45 min) Laparoscopic surgery (> 45 min) Malignancy Confined to bed (> 72 hours) Immobilizing plaster cast Central venous access Age >= 75 History of VTE Family history of VTE Factor V Leiden Prothrombin [id number] Lupus anticoagulant Anticardiolipin antibodies Elevated serum homocysteine Heparin-induced thrombocytopenia Other congenital or acquired thrombophilia Stroke (< 1 month) Elective arthroplasty Hip, pelvis, or leg fracture Acute spinal cord injury (< 1 month) Prophylaxis Regimen: Total Risk Factor Score Risk Level Prophylaxis Regimen 0-1 Low Early ambulation 2 Moderate Order ONE of the following: *Sequential Compression Device (SCD) *Heparin 5000 units SQ BID 3-4 Higher Order ONE of the following medications: *Heparin 5000 units SQ TID *Enoxaparin/Lovenox 40 mg SQ daily (WT < 150 kg, CrCl > 30 mL/min) *Enoxaparin/Lovenox 30 mg SQ daily (WT < 150 kg, CrCl > 10-29 mL/min) *Enoxaparin/Lovenox 30 mg SQ BID (WT < 150 kg, CrCl > 30 mL/min) AND/OR *Sequential Compression Device (SCD) 5 or more Highest Order ONE of the following medications: *Heparin 5000 units SQ TID (Preferred with Epidurals) *Enoxaparin/Lovenox 40 mg SQ daily (WT < 150 kg, CrCl > 30 mL/min) *Enoxaparin/Lovenox 30 mg SQ daily (WT < 150 kg, CrCl > 10-29 mL/min) *Enoxaparin/Lovenox 30 mg SQ BID (WT < 150 kg, CrCl > 30 mL/min) AND *Sequential Compression Device (SCD) Assessment and Plan - Problem List (1) DKA (diabetic ketoacidoses) Code(s): E13.10 - Other specified diabetes mellitus with ketoacidosis without coma Status: Acute (2) Sepsis Code(s): A41.9 - Sepsis, unspecified organism Status: Acute (3) Respiratory insufficiency Code(s): R06.89 - Other abnormalities of breathing Status: Acute (4) Acute UTI Code(s): N39.0 - Urinary tract infection, site not specified Status: Acute (5) ESRD on dialysis Code(s): N18.6 - End stage renal disease; Z99.2 - Dependence on renal dialysis Status: Chronic (6) Pleural effusion Code(s): J90 - Pleural effusion, not elsewhere classified Status: Chronic (7) DM (diabetes mellitus) Code(s): E11.9 - Type 2 diabetes mellitus without complications Status: Chronic (8) CHF (congestive heart failure) Code(s): I50.9 - Heart failure, unspecified Status: Chronic - Assessment and Plan Plan: NEURO: Mild metabolic encephalopathy -Encephalopathy most likely secondary to DKA and sepsis -Pain control with [place] -Continue Neurontin RESP: COPD exacerbation Respiratory insufficiency Chronic left-sided pleural effusion -DuoNeb every 6 hours scheduled and as needed -Metabolic acidosis correction with DKA protocol and bicarb -Received IV Solu-Medrol 125 mg x1 by EMS, avoid further IV steroids due to DKA -Continue Symbicort CV: History of coronary artery disease History of CHF now compensated -Continue careful fluid resuscitation due to end-stage renal disease, per DKA protocol -Hemodialysis if there is fluid overload -Hold Bumex hold nifedipine hold hydralazine -Continue aspirin, pressor gel, carvedilol, atorvastatin GI: -N.p.o. except meds until DKA resolved, IV famotidine : End-stage renal disease on hemodialysis -Monitor renal function closely, monitor for fluid overload. Lim catheter placed in ED -Dr. Toro consulted ID: Sepsis UTI -Antibiotics Zosyn and vancomycin given in the ED, continue Zosyn -Start micafungin -Blood urine and sputum cultures HEME: -Monitor CBC, coags ENDO: Severe DKA -Insulin infusion and careful hydration per DKA protocol -May need hemodialysis to further correct acidosis -2 ampoules/100 MEQ of bicarb also ordered PROPH: -Bilateral lower extremity SCDs. Subcu heparin/famotidine LINES: -Utilize peripheral IVs, central line if needed CC time 40 min (1) DKA (diabetic ketoacidoses) Qualifiers: Diabetes mellitus type: type 2 Diabetes mellitus complication detail: without coma Qualified Code(s): E11.10 - Type 2 diabetes mellitus with ketoacidosis without coma
[2018-09-27] MEDS: Insulin Regular (For Infusion) 100 UNIT in Sodium Chlor 0.9% Inj 99 ML IV.CONT PRN (21:59)
[2018-09-27] MEDS: Heparin - SQ 10,000 UNITS/ML Vial SQ SCH (22:51)
[2018-09-27] MEDS: Micafungin Inj 150 MG in Sodium Chlor 0.9% Inj 100 ML IV.SIG SCH (22:52)
[2018-09-27] MEDS: Dextrose 5%/NaCl 0.9% Inj 1,000 ML IV.CONT SCH (23:52)
[2018-09-28 02:01] LABS: Calcium 8.2 mg/dL (8.5-10.1); Carbon Dioxide 7.2 meq/L (21.0-32.0); Potassium 3.8 meq/L (3.5-5.1)
[2018-09-28] MEDS: Chlorhexidine Gluconate 2% 1 Pack (2 Cloths) TOPICAL SCH (03:00)
[2018-09-28] MEDS: Piperacil/Tazo 2.25 GM Premix 50 ML IV.SIG SCH ×3 (03:00→21:06)
[2018-09-28] MEDS: Dextrose 5%/NaCl 0.9% Inj 1,000 ML IV.CONT SCH ×5 (03:00→23:06)
[2018-09-28] MEDS ORDERED: Chlorhexidine Gluconate 2% 1 Pack (2 Cloths) TOPICAL PRN (04:00)
[2018-09-28] MEDS: Potassium Chlor 20 mEq Premix 20 MEQ/100 ML PIGGYBACK IV.SIG PRN ×2 (04:33→06:25)
[2018-09-28 07:46] LABS: Alanine Aminotransferase 8 U/L (10-53); Alkaline Phosphatase 137 U/L (45-117); Anion Gap 29 meq/L (5-15); Aspartate Aminotransferase 57 U/L (15-37); Blood Urea Nitrogen 39 mg/dL (7-18); Calcium 8.3 mg/dL (8.5-10.1); Carbon Dioxide 11.6 meq/L (21.0-32.0); Chloride 95 meq/L (98-107); Glomerular Filtration Rate 15 mL/min (>89); Potassium 3.5 meq/L (3.5-5.1); Sodium 136 meq/L (136-145); Total Protein 6.4 g/dL (6.4-8.2)
[2018-09-28 07:50] LABS: Glucose,Random 466 mg/dL (74-106)
[2018-09-28] MEDS ORDERED: Sod Chloride 0.9% Inj 1,000 ML OTHER PRN ×2 (08:40)
[2018-09-28] MEDS ORDERED: Sod Chloride 0.9% Inj 1,000 ML IV.CONT PRN (08:40)
[2018-09-28] MEDS ORDERED: Gelatin 12 MM/7 MM Topical Foam TOPICAL PRN (08:40)
[2018-09-28] MEDS ORDERED: Heparin 10,000 UNITS/10 ML Vial (for IV use) OTHER PRN ×2 (08:40)
[2018-09-28] MEDS ORDERED: Acetaminophen 325 MG Tablet PO PRN (08:40)
[2018-09-28] MEDS ORDERED: Albumin Human 25% Inj 100 ML IV.SIG PRN (08:40)
[2018-09-28] MEDS ORDERED: Famotidine PF Inj 20 MG/2 ML Vial IV.PUSH SCH (09:00)
[2018-09-28] MEDS: Insulin Regular (For Infusion) 100 UNIT in Sodium Chlor 0.9% Inj 99 ML IV.CONT PRN (09:10)
--- NOTE | 2018-09-28 10:25 | P.PNNP ---
Physical Exam Vital signs: Vital Signs 09/27/18 18:31 09/27/18 18:34 09/27/18 21:52 Temperature 96.8 F L Pulse Rate 75 90 Respiratory Rate 13 18 Blood Pressure 122/56 L Pulse Oximetry 4 L 97 09/27/18 21:53 09/27/18 22:14 09/27/18 22:16 Temperature Pulse Rate 90 91 H 91 H Respiratory Rate 20 50 H 21 Blood Pressure 122/51 L 107/51 L Pulse Oximetry 95 09/27/18 23:00 09/28/18 00:00 09/28/18 01:00 Temperature 92.1 F L 94.1 F L 95.4 F L Pulse Rate 91 H 90 88 Respiratory Rate 16 20 11 L Blood Pressure 108/57 L 108/54 L 107/53 L Pulse Oximetry 95 93 L 91 L 09/28/18 01:19 09/28/18 02:00 09/28/18 03:00 Temperature 95.9 F L 96.1 F L Pulse Rate 87 85 Respiratory Rate 20 18 17 Blood Pressure 119/56 L Pulse Oximetry 85 L 97 09/28/18 03:01 09/28/18 04:00 09/28/18 05:00 Temperature 96.1 F L 96.1 F L 96.3 F L Pulse Rate 85 83 83 Respiratory Rate 17 17 14 Blood Pressure 133/62 132/59 L 134/60 Pulse Oximetry 98 99 98 09/28/18 05:01 09/28/18 06:00 09/28/18 06:24 Temperature 96.1 F L Pulse Rate 83 82 Respiratory Rate 14 14 22 Blood Pressure 129/61 Pulse Oximetry 99 91 L 09/28/18 06:36 09/28/18 07:00 09/28/18 08:00 Temperature 95.9 F L 95.9 F L Pulse Rate 81 89 Respiratory Rate 17 26 H Blood Pressure 145/65 H 109/66 Pulse Oximetry 92 L 100 98 09/28/18 08:33 09/28/18 09:00 Temperature Pulse Rate 83 83 Respiratory Rate 18 Blood Pressure Pulse Oximetry Intake & Output 09/27/18 09/28/18 09/28/18 18:59 06:59 18:59 Intake Total 1050 / 1050 200 / 200 Output Total 100 / 100 Balance 950 / 950 200 / 200 Weight 50.349 kg 65.5 kg Intake: IV 1050 / 1050 200 / 200 NovoLIN R (IV Infusion) 100 100 / 100 UNIT In NS Inj 99 ML @ 5 UNITS/ HR 5 mls/hr IV.CONT TITRATE PRN Rx#:[id number] Mycamine Inj 150 MG In NS Inj 100 / 100 100 ML @ 100 mls/hr IV.SIG Q24H [facility] Rx#:[id number] Zosyn 2.25 GM Premix 50 ML @ 100 / 100 100 mls/hr IV.SIG Q8H [facility] Rx#: [id number] KCl 20 mEq Premix Inj 20 meq In 100 / 100 100 / 100 100 ml @ 50 mls/hr IV.SIG Q2H PRN Rx#:[id number] NS Inj 500 ML @ Wide Open IV. 500 / 500 SIG BOLUS [facility] Rx#:[id number] Vancomycin Inj 1,000 MG In NS 250 / 250 Inj 250 ML @ 200 mls/hr IV.SIG ONCE ONE Rx#:[id number] Output: Urine Amount (Catheter) 100 / 100 Indwelling Urethral Catheter 100 / 100 Other: Weight On Admission 64.5 kg - Urinary Catheter Management Indwelling Urethral Catheter Cath placed during this visit: yes, but has since been removed by the nurse Reason for continuing: Decision to DC catheter Insertion date: 09/27/18 Insertion time: 21:45 Removal date: 09/28/18 Removal time: 09:15
--- NOTE | 2018-09-28 10:28 | P.CONNP ---
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 Presented to the emergency department evaluation of shortness of breath and decreased appetite. Found to be in DKA was started on protocol. Nephrology consulted for management of end stage renal disease. Last hemodialysis on Wednesday. [facility] - History History Provided By: Patient, Medical Record - Medical History Medical History: Medical History (Last Reviewed 09/27/18 @ 21:55 by AQUILINO Do) A-V fistula Anemia CAD (coronary artery disease) CAD (coronary artery disease) CHF (congestive heart failure) CHF (congestive heart failure) COPD (chronic obstructive pulmonary disease) COPD (chronic obstructive pulmonary disease) Chronic back pain Diabetes Diabetes ESRD (end stage renal disease) on dialysis End stage kidney disease HLD (hyperlipidemia) Hemodialysis access, AV graft Hemodialysis access, AV graft Hyperkalemia Hypertension Hypoxia - Surgical History Surgical History: Surgical History (Last Reviewed 09/27/18 @ 18:23 by Esperanza Hill) H/O laminectomy H/O vaginal hysterectomy H/O: History of laser refractive surgery History of tonsillectomy Hx of appendectomy Hx of heart artery stent Stented coronary artery - Family History Family History: Family History (Last Reviewed 09/23/18 @ 10:11 by Michela Abreu) Other ALS (amyotrophic lateral sclerosis) Multiple sclerosis - Tobacco History Second Hand Smoke Exposure: No Smoking Status: Former smoker Tobacco Type: Cigarettes Packs Per Day: 1 (1ppd) Years Smoked: 35 Smoking End Date: The patient reports that she quit smoking 16 years ago. - Alcohol History How Often Do You Have a Drink Containing Alcohol: Never - Substance Use History Substance History: No History of Abuse - Travel History Recent Travel in the [place] Within the Last 8 Weeks: No Recent Travel Out of the Country Within the Last 8 Weeks: No - Immunization History Tetanus Immunization: <5 Years Medications and Allergies Allergies Allergy/AdvReac Type Severity Reaction Status Date / Time propoxyphene Allergy Intermediate RASH Verified 07/18/18 07:41 Active Medications: Active Medications Acetaminophen (Tylenol) 650 mg PO UNSCH X1 PRN PRN Reason: SEE LABEL COMMENTS Hydrocodone Bitart/Acetaminophen (Hughes 5/325) 1 tab PO Q4H PRN PRN Reason: PAIN SCALE 1 TO 5 Last Admin: 09/28/18 04:49 Dose: 1 tab Albuterol (Duoneb Neb (Prn)) 1 ampul NEB Q4HR NEB PRN PRN Reason: SHORTNESS OF BREATH Albuterol (Duoneb Neb (Marie)) 1 ampul NEB Q6HR NEB MAREI Last Admin: 09/28/18 08:33 Dose: 1 ampul Aspirin (Ecotrin) 81 mg PO DAILY MARIE Atorvastatin Calcium (Lipitor) 80 mg PO HS [facility] Azithromycin (Zithromax) 500 mg PO DAILY [facility] Budesonide/Formoterol Fumarate (Symbicort 160/4.5 Mcg Inh) 2 puff INH BID [facility] Calcium Acetate (Phoslo) 667 mg PO TID [facility] Carvedilol (Coreg) 6.25 mg PO BID [facility] Chlorhexidine Gluconate (Chlorhexidine 2% Cloth) 3 pack TOPICAL DAILY@0400 MARIE Stop: 10/03/18 03:59 Last Admin: 09/28/18 03:00 Dose: 3 pack Chlorhexidine Gluconate (Chlorhexidine 2% Cloth) 3 pack TOPICAL DAILY@0400 PRN PRN Reason: Extra cloth needed Stop: 10/03/18 03:59 Clonidine HCl (Catapres) 0.1 mg PO UNSCH X1 PRN PRN Reason: SEE LABEL COMMENTS Epoetin Low (Epogen Inj) 6,000 unit IV.PUSH UNSCH PRN PRN Reason: SEE LABEL COMMENTS Famotidine (Pepcid Pf Inj) 20 mg IV.PUSH Q12HR MARIE Gabapentin (Neurontin) 100 mg PO HS [facility] Gelatin (Gelfoam 12 Mm/7 Mm Topical) 1 foam TOPICAL UNSCH PRN PRN Reason: help stop bleeding from site Gentamicin Sulfate (Gentamicin Inj) 20 mg OTHER WITH DIALYSIS PRN PRN Reason: Dwell Gentamycin Lock Heparin Sodium (Porcine) (Heparin Inj) 5,000 units SQ Q12H MARIE Last Admin: 09/27/18 22:51 Dose: 5,000 units Heparin Sodium (Porcine) (Heparin Inj) 8,000 units OTHER WITH DIALYSIS PRN PRN Reason: for machine prime Heparin Sodium (Porcine) (Heparin Inj) 0 units OTHER WITH DIALYSIS PRN PRN Reason: Dwell Heparin to Fill Catheter Sodium Chloride (Ns Inj) 500 mls @ 0 mls/hr IV.SIG BOLUS MARIE Last Infusion: 09/27/18 20:25 Dose: Infused Insulin Human Regular 100 unit (/ Sodium Chloride) 100 mls @ 5 mls/hr IV.CONT TITRATE PRN; Protocol PRN Reason: See protocol Last Admin: 09/28/18 09:10 Dose: 14 units/hr, 14 mls/hr Potassium Chloride (Kcl 20 Meq Premix Inj) 20 meq in 100 mls @ 100 mls/hr IV.SIG Q1H PRN PRN Reason: for K+ 4.5 to 5 Potassium Chloride (Kcl 20 Meq Premix Inj) 20 meq in 100 mls @ 50 mls/hr IV.SIG Q2H PRN PRN Reason: for K+ 4.5 to 5 Potassium Chloride (Kcl 20 Meq Premix Inj) 20 meq in 100 mls @ 100 mls/hr IV.SIG Q1H PRN PRN Reason: for K+ 3.5 to 4.4 Potassium Chloride (Kcl 20 Meq Premix Inj) 20 meq in 100 mls @ 50 mls/hr IV.SIG Q2H PRN PRN Reason: for K+ 3.5 to 4.4 Last Infusion: 09/28/18 08:57 Dose: Infused Potassium Chloride (Kcl 20 Meq Premix Inj) 20 meq in 100 mls @ 50 mls/hr IV.SIG Q2H PRN PRN Reason: for Initial K+ ONLY < 3.5 Potassium Chloride (Kcl 40 Meq Premix Inj) 40 meq in 100 mls @ 100 mls/hr IV.SIG Q1H PRN PRN Reason: for Initial K+ ONLY < 3.5 Potassium Chloride (Kcl 40 Meq Premix Inj) 40 meq in 100 mls @ 50 mls/hr IV.SIG Q2H PRN PRN Reason: for Subsequent K+ < 3.5 Sodium Phosphate 15 mmol/ (Sodium Chloride) 105 mls @ 25 mls/hr IV.SIG UNSCH PRN PRN Reason: for Phosphate Level < 1.0 Dextrose/Sodium Chloride (D5w/Normal Saline Inj) 1,000 mls @ 200 mls/hr IV.CONT .Q5H MARIE Last Admin: 09/28/18 06:33 Dose: Not Given Potassium Chloride (Kcl 20 Meq Premix Inj) 20 meq in 100 mls @ 50 mls/hr IV.SIG Q2H PRN PRN Reason: for Subsequent K+ < 3.5 Micafungin Sodium 150 mg/ (Sodium Chloride) 100 mls @ 100 mls/hr IV.SIG Q24H MARIE Last Infusion: 09/27/18 23:52 Dose: Infused Piperacillin/Tazobactam/Dextrose (Zosyn 2.25 Gm Premix) 50 mls @ 100 mls/hr IV.SIG Q8H MARIE Last Infusion: 09/28/18 03:30 Dose: Infused Sodium Chloride (Ns Inj) 1,000 mls @ 0 mls/hr OTHER .Q0M PRN PRN Reason: for prime and rinse back Sodium Chloride (Ns Inj) 1,000 mls @ 200 mls/hr OTHER .Q5H PRN PRN Reason: for dialyzer flush PRN Sodium Chloride (Ns Inj) 1,000 mls @ 0 mls/hr IV.CONT .Q0M PRN PRN Reason: hypotension / volume replace Albumin Human (Flexbumin 25% Inj) 100 mls @ 60 mls/hr IV.SIG WITH DIALYSIS PRN PRN Reason: hypotension / volume replace Mannitol (Mannitol Inj) 12.5 gm IV.PUSH UNSCH PRN PRN Reason: hypotension / volume replace Nitroglycerin (Nitrostat Sl (Override)) 0.4 mg SL Q5M PRN PRN Reason: Chest Pain Ondansetron HCl (Zofran Inj) 4 mg IV.PUSH UNSCH X1 PRN PRN Reason: WITH DIALYSIS Prasugrel (Effient) 10 mg PO DAILY MARIE Sodium Bicarbonate (Sodium Bicarbonate 8.4% Inj) 100 meq IV.PUSH UNSCH PRN PRN Reason: for pH less than 6.9 Sodium Bicarbonate (Sodium Bicarbonate 8.4% Inj) 50 meq IV.PUSH UNSCH PRN PRN Reason: for pH 6.9 to 7.0 Sodium Chloride (Ns Flush) 5 ml IV.FLUSH UNSCH PRN PRN Reason: flush each lumen during HD Exam Vital signs: Vital Signs 09/27/18 18:31 09/27/18 18:34 09/27/18 21:52 Temperature 96.8 F L Pulse Rate 75 90 Respiratory Rate 13 18 Blood Pressure 122/56 L Pulse Oximetry 4 L 97 09/27/18 21:53 09/27/18 22:14 09/27/18 22:16 Temperature Pulse Rate 90 91 H 91 H Respiratory Rate 20 50 H 21 Blood Pressure 122/51 L 107/51 L Pulse Oximetry 95 09/27/18 23:00 09/28/18 00:00 09/28/18 01:00 Temperature 92.1 F L 94.1 F L 95.4 F L Pulse Rate 91 H 90 88 Respiratory Rate 16 20 11 L Blood Pressure 108/57 L 108/54 L 107/53 L Pulse Oximetry 95 93 L 91 L 09/28/18 01:19 09/28/18 02:00 09/28/18 03:00 Temperature 95.9 F L 96.1 F L Pulse Rate 87 85 Respiratory Rate 20 18 17 Blood Pressure 119/56 L Pulse Oximetry 85 L 97 09/28/18 03:01 09/28/18 04:00 09/28/18 05:00 Temperature 96.1 F L 96.1 F L 96.3 F L Pulse Rate 85 83 83 Respiratory Rate 17 17 14 Blood Pressure 133/62 132/59 L 134/60 Pulse Oximetry 98 99 98 09/28/18 05:01 09/28/18 06:00 09/28/18 06:24 Temperature 96.1 F L Pulse Rate 83 82 Respiratory Rate 14 14 22 Blood Pressure 129/61 Pulse Oximetry 99 91 L 09/28/18 06:36 09/28/18 07:00 09/28/18 08:00 Temperature 95.9 F L 95.9 F L Pulse Rate 81 89 Respiratory Rate 17 26 H Blood Pressure 145/65 H 109/66 Pulse Oximetry 92 L 100 98 09/28/18 08:33 09/28/18 09:00 Temperature Pulse Rate 83 83 Respiratory Rate 18 Blood Pressure Pulse Oximetry Intake & Output 09/27/18 09/28/18 09/28/18 18:59 06:59 18:59 Intake Total 1050 / 1050 200 / 200 Output Total 100 / 100 Balance 950 / 950 200 / 200 Weight 50.349 kg 65.5 kg Intake: IV 1050 / 1050 200 / 200 NovoLIN R (IV Infusion) 100 100 / 100 UNIT In NS Inj 99 ML @ 5 UNITS/ HR 5 mls/hr IV.CONT TITRATE PRN Rx#:[id number] Mycamine Inj 150 MG In NS Inj 100 / 100 100 ML @ 100 mls/hr IV.SIG Q24H MARIE Rx#:[id number] Zosyn 2.25 GM Premix 50 ML @ 100 / 100 100 mls/hr IV.SIG Q8H MARIE Rx#: [id number] KCl 20 mEq Premix Inj 20 meq In 100 / 100 100 / 100 100 ml @ 50 mls/hr IV.SIG Q2H PRN Rx#:[id number] NS Inj 500 ML @ Wide Open IV. 500 / 500 SIG BOLUS MARIE Rx#:[id number] Vancomycin Inj 1,000 MG In NS 250 / 250 Inj 250 ML @ 200 mls/hr IV.SIG ONCE ONE Rx#:[id number] Output: Urine Amount (Catheter) 100 / 100 Indwelling Urethral Catheter 100 / 100 Other: Weight On Admission 64.5 kg Narrative: GENERAL: Lethargic, responds to questions. SKIN: Warm and dry. NECK: Supple, trachea midline. No JVD. CARDIOVASCULAR: Regular rate and rhythm without murmurs, gallops, or rubs. AVF right arm, bruising present. RESPIRATORY: Breath sounds diminished bilaterally. No accessory muscle use. GASTROINTESTINAL: Abdomen soft, non-tender, nondistended. MUSCULOSKELETAL: No cyanosis, generalized edema. BACK: Nontender without obvious deformity. No CVA tenderness. Results - Lab Results 09/27/18 18:41 09/28/18 14:00 Most recent lab results ABG pH 7.02 (7.380-7.420) L* 09/27/18 20:51 ABG pCO2 16 mmHg (38-42) L* 09/27/18 20:51 ABG pO2 123 mmHg (61-120) H 09/27/18 20:51 ABG HCO3 4 mmol/L (22-26) L* 09/27/18 20:51 Calcium 8.3 mg/dL (8.5-10.1) L 09/28/18 04:21 Magnesium 2.2 mg/dL (1.5-2.5) 09/27/18 18:41 Assessment and Plan - Assessment (1) ESRD (end stage renal disease) on dialysis Code(s): N18.6 - End stage renal disease; Z99.2 - Dependence on renal dialysis Status: Acute Plan: End stage renal disease on hemodialysis on Wednesday, Wednesday, and Wednesday. Last hemodialysis on Wednesday. Hemodialysis ordered for today will be preformed at bedside. Has right AVF with bruising present will monitor. Avoid IVF administration an gadolinium. Will continue Epogen with dialysis. (2) DKA (diabetic ketoacidoses) Code(s): E13.10 - Other specified diabetes mellitus with ketoacidosis without coma Status: Acute Plan: On insulin gtt, blood sugars improving. (3) Acute UTI Code(s): N39.0 - Urinary tract infection, site not specified Status: Acute Plan: On antibiotics. Culture pending. (4) Diabetes Code(s): E11.9 - Type 2 diabetes mellitus without complications Status: Acute Plan: On insulin gtt, DKA protocol. BS improving. (5) Hypertension Code(s): I10 - Essential (primary) hypertension Status: Acute Plan: Will monitor, on coreg. <Des Toro - Last Filed: 09/29/18 12:36> History of Present Illness Primary Care Provider: UNKNOWN [facility] - Medical History Medical History: Medical History (Last Reviewed 09/27/18 @ 21:55 by AQUILINO Do) A-V fistula Anemia CAD (coronary artery disease) CAD (coronary artery disease) CHF (congestive heart failure) CHF (congestive heart failure) COPD (chronic obstructive pulmonary disease) COPD (chronic obstructive pulmonary disease) Chronic back pain Diabetes Diabetes ESRD (end stage renal disease) on dialysis End stage kidney disease HLD (hyperlipidemia) Hemodialysis access, AV graft Hemodialysis access, AV graft Hyperkalemia Hypertension Hypoxia - Surgical History Surgical History: Surgical History (Last Reviewed 09/27/18 @ 18:23 by Esperanza Hill) H/O laminectomy H/O vaginal hysterectomy H/O: History of laser refractive surgery History of tonsillectomy Hx of appendectomy Hx of heart artery stent Stented coronary artery - Family History Family History: Family History (Last Reviewed 09/23/18 @ 10:11 by Michela Abreu) Other ALS (amyotrophic lateral sclerosis) Multiple sclerosis Medications and Allergies Active Medications: Active Medications Acetaminophen (Tylenol) 650 mg PO UNSCH X1 PRN PRN Reason: SEE LABEL COMMENTS Hydrocodone Bitart/Acetaminophen (Hughes 5/325) 1 tab PO Q4H PRN PRN Reason: PAIN SCALE 1 TO 5 Last Admin: 09/29/18 03:12 Dose: 1 tab Albuterol (Duoneb Neb (Prn)) 1 ampul NEB Q4HR NEB PRN PRN Reason: SHORTNESS OF BREATH Albuterol (Duoneb Neb (Marie)) 1 ampul NEB Q6HR NEB [facility] Last Admin: 09/29/18 04:25 Dose: 1 ampul Aspirin (Ecotrin) 81 mg PO DAILY [facility] Last Admin: 09/28/18 12:07 Dose: 81 mg Atorvastatin Calcium (Lipitor) 80 mg PO HS [facility] Last Admin: 09/28/18 21:07 Dose: 80 mg Azithromycin (Zithromax) 500 mg PO DAILY [facility] Last Admin: 09/28/18 12:08 Dose: 500 mg Budesonide/Formoterol Fumarate (Symbicort 160/4.5 Mcg Inh) 2 puff INH BID [facility] Last Admin: 09/28/18 21:07 Dose: 2 puff Calcium Acetate (Phoslo) 667 mg PO TID [facility] Last Admin: 09/28/18 13:34 Dose: Not Given Carvedilol (Coreg) 6.25 mg PO BID [facility] Last Admin: 09/28/18 21:07 Dose: 6.25 mg Chlorhexidine Gluconate (Chlorhexidine 2% Cloth) 3 pack TOPICAL DAILY@0400 MARIE Stop: 10/03/18 03:59 Last Admin: 09/29/18 03:12 Dose: 3 pack Chlorhexidine Gluconate (Chlorhexidine 2% Cloth) 3 pack TOPICAL DAILY@0400 PRN PRN Reason: Extra cloth needed Stop: 10/03/18 03:59 Clonidine HCl (Catapres) 0.1 mg PO UNSCH X1 PRN PRN Reason: SEE LABEL COMMENTS Dextrose (D50w Vial) 50 ml IV.PUSH UNSCH PRN PRN Reason: PER HYPOGLYCEMIA PROTOCOL Epoetin Low (Epogen Inj) 6,000 unit IV.PUSH UNSCH PRN PRN Reason: SEE LABEL COMMENTS Famotidine (Pepcid Pf Inj) 10 mg IV.PUSH Q12HR MARIE Gabapentin (Neurontin) 100 mg PO HS [facility] Last Admin: 09/28/18 21:07 Dose: 100 mg Gelatin (Gelfoam 12 Mm/7 Mm Topical) 1 foam TOPICAL UNSCH PRN PRN Reason: help stop bleeding from site Gentamicin Sulfate (Gentamicin Inj) 20 mg OTHER WITH DIALYSIS PRN PRN Reason: Dwell Gentamycin Lock Glucagon (Glucagon Inj) 1 mg OTHER PRN PRN PRN Reason: for Hypoglycemia Protocol Heparin Sodium (Porcine) (Heparin Inj) 5,000 units SQ Q12H MARIE Last Admin: 09/28/18 23:08 Dose: 5,000 units Heparin Sodium (Porcine) (Heparin Inj) 8,000 units OTHER WITH DIALYSIS PRN PRN Reason: for machine prime Heparin Sodium (Porcine) (Heparin Inj) 0 units OTHER WITH DIALYSIS PRN PRN Reason: Dwell Heparin to Fill Catheter Dextrose/Sodium Chloride (D5w/Normal Saline Inj) 1,000 mls @ 200 mls/hr IV.CONT .Q5H MARIE Last Admin: 09/29/18 07:35 Dose: Not Given Micafungin Sodium 150 mg/ (Sodium Chloride) 100 mls @ 100 mls/hr IV.SIG Q24H MARIE Last Infusion: 09/29/18 08:26 Dose: Infused Piperacillin/Tazobactam/Dextrose (Zosyn 2.25 Gm Premix) 50 mls @ 100 mls/hr IV.SIG Q8H MARIE Last Infusion: 09/29/18 07:35 Dose: Infused Sodium Chloride (Ns Inj) 1,000 mls @ 0 mls/hr OTHER .Q0M PRN PRN Reason: for prime and rinse back Sodium Chloride (Ns Inj) 1,000 mls @ 200 mls/hr OTHER .Q5H PRN PRN Reason: for dialyzer flush PRN Sodium Chloride (Ns Inj) 1,000 mls @ 0 mls/hr IV.CONT .Q0M PRN PRN Reason: hypotension / volume replace Albumin Human (Flexbumin 25% Inj) 100 mls @ 60 mls/hr IV.SIG WITH DIALYSIS PRN PRN Reason: hypotension / volume replace Insulin Detemir (Levemir Inj) 5 unit SQ BID MARIE Last Admin: 09/28/18 16:15 Dose: 5 unit Insulin Human Regular (Novolin R Correctional Sugar Inj) 0 units SQ ACHS MARIE; Protocol Last Admin: 09/28/18 21:05 Dose: Not Given Lactulose (Lactulose Liq) 30 ml PO BID PRN PRN Reason: CONSTIPATION Mannitol (Mannitol Inj) 12.5 gm IV.PUSH UNSCH PRN PRN Reason: hypotension / volume replace Nitroglycerin (Nitrostat Sl (Override)) 0.4 mg SL Q5M PRN PRN Reason: Chest Pain Ondansetron HCl (Zofran Inj) 4 mg IV.PUSH UNSCH X1 PRN PRN Reason: WITH DIALYSIS Prasugrel (Effient) 10 mg PO DAILY MARIE Last Admin: 09/28/18 12:07 Dose: 10 mg Sodium Chloride (Ns Flush) 5 ml IV.FLUSH UNSCH PRN PRN Reason: flush each lumen during HD Exam Vital signs: Vital Signs 09/28/18 12:45 09/28/18 13:00 09/28/18 13:15 Temperature 97.2 F L 97.2 F L 97.3 F L Pulse Rate 81 80 80 Respiratory Rate 16 16 15 Blood Pressure 151/66 H 149/67 H 150/65 H Pulse Oximetry 100 100 100 09/28/18 13:30 09/28/18 13:45 09/28/18 14:00 Temperature 97.3 F L 97.3 F L 97.3 F L Pulse Rate 80 80 80 Respiratory Rate 16 19 17 Blood Pressure 149/67 H 149/67 H 135/63 Pulse Oximetry 100 99 98 09/28/18 14:15 09/28/18 14:30 09/28/18 14:45 Temperature 97.5 F L 97.5 F L 97.7 F Pulse Rate 82 81 82 Respiratory Rate 20 20 18 Blood Pressure 139/76 142/78 H 142/71 H Pulse Oximetry 96 99 98 09/28/18 15:00 09/28/18 15:15 09/28/18 15:30 Temperature 97.9 F 97.9 F 97.9 F Pulse Rate 82 80 81 Respiratory Rate 17 18 22 Blood Pressure 136/64 139/63 134/61 Pulse Oximetry 82 L 100 100 09/28/18 15:45 09/28/18 16:00 09/28/18 16:15 Temperature 98.1 F 98.1 F 98.1 F Pulse Rate 84 82 82 Respiratory Rate 19 18 17 Blood Pressure 137/60 138/63 157/67 H Pulse Oximetry 97 98 98 09/28/18 16:18 09/28/18 16:30 09/28/18 16:45 Temperature 98.2 F 98.2 F Pulse Rate 82 83 83 Respiratory Rate 18 20 18 Blood Pressure 159/70 H 149/65 H Pulse Oximetry 98 99 09/28/18 20:00 09/28/18 20:40 09/29/18 00:00 Temperature 98.3 F Pulse Rate 83 84 85 Respiratory Rate 17 16 17 Blood Pressure 141/64 H 135/63 Pulse Oximetry 96 96 98 09/29/18 04:00 09/29/18 04:25 09/29/18 08:00 Temperature Pulse Rate 85 84 88 Respiratory Rate 8 L 18 Blood Pressure 157/70 H Pulse Oximetry 99 09/29/18 09:25 Temperature Pulse Rate 88 Respiratory Rate 12 Blood Pressure Pulse Oximetry 99 Intake & Output 09/28/18 09/29/18 09/29/18 18:59 06:59 18:59 Intake Total 470 / 470 200 / 200 150 / 150 Output Total 3100 / 3100 1 / Balance -2630 / -2630 199 / 199 150 / 150 Weight 58 kg Intake: IV 250 / 250 50 / 50 150 / 150 NovoLIN R (IV Infusion) 100 100 / 100 UNIT In NS Inj 99 ML @ 5 UNITS/ HR 5 mls/hr IV.CONT TITRATE PRN Rx#:[id number] Mycamine Inj 150 MG In NS Inj 100 / 100 100 ML @ 100 mls/hr IV.SIG Q24H MARIE Rx#:[id number] Zosyn 2.25 GM Premix 50 ML @ 50 / 50 50 / 50 50 / 50 100 mls/hr IV.SIG Q8H MARIE Rx#: [id number] KCl 20 mEq Premix Inj 20 meq In 100 / 100 100 ml @ 50 mls/hr IV.SIG Q2H PRN Rx#:[id number] Oral 220 / 220 150 / 150 Output: Urine 0 / 0 Stool 1 / 1 Hemodialysis Amount 3000 / 3000 Urine Amount (Catheter) 100 / 100 Indwelling Urethral Catheter 100 / 100 Other: Date of Last Bowel Movement 09/29/18 09/29/18 Results - Lab Results 09/27/18 18:41 09/29/18 05:20 Most recent lab results ABG pH 7.02 (7.380-7.420) L* 09/27/18 20:51 ABG pCO2 16 mmHg (38-42) L* 09/27/18 20:51 ABG pO2 123 mmHg (61-120) H 09/27/18 20:51 ABG HCO3 4 mmol/L (22-26) L* 09/27/18 20:51 Calcium 8.5 mg/dL (8.5-10.1) 09/29/18 05:20 Phosphorus 3.2 mg/dL (2.5-4.9) 09/29/18 05:20 Magnesium 2.0 mg/dL (1.5-2.5) 09/29/18 05:20 Assessment and Plan - Assessment (1) ESRD (end stage renal disease) on dialysis Code(s): N18.6 - End stage renal disease; Z99.2 - Dependence on renal dialysis Status: Acute Plan: Patient seen and examined, agree with above. Patient with End stage renal disease, on HD, MWF. Now admitted with Hyperglycemia and D. Ketoacidosis. HD done, BS and acidosis improving. (2) Acute UTI Code(s): N39.0 - Urinary tract infection, site not specified Status: Acute (3) Diabetes Code(s): E11.9 - Type 2 diabetes mellitus without complications Status: Acute (4) Hypertension Code(s): I10 - Essential (primary) hypertension Status: Acute <Jessica Clemons - Last Filed: 09/28/18 16:45> (2) DKA (diabetic ketoacidoses) Qualifiers: Diabetes mellitus type: type 2 Diabetes mellitus complication detail: without coma Qualified Code(s): E11.10 - Type 2 diabetes mellitus with ketoacidosis without coma (4) Diabetes Qualifiers: Diabetes mellitus snf insulin use: with snf use <Des Toro - Last Filed: 09/29/18 12:36> (3) Diabetes 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
[2018-09-28] MEDS: Calcium Acetate 667 MG Capsule PO SCH ×2 (11:22→13:34)
[2018-09-28] MEDS: Carvedilol 6.25 MG Tablet PO SCH ×2 (12:07→21:07)
[2018-09-28] MEDS: Azithromycin 250 MG Tablet PO SCH (12:08)
[2018-09-28] MEDS: Heparin - SQ 10,000 UNITS/ML Vial SQ SCH ×2 (12:08→23:08)
[2018-09-28] MEDS: Budesonide-Formoterol 160/4.5 MCG 6 GM Inhaler INH SCH ×2 (12:26→21:07)
--- NOTE | 2018-09-28 13:36 | ECG ---
Date Performed: 09/27/2018 Time Performed: 18:55:18 PTAGE: 67 years EKG: Sinus rhythm MODERATE INTRAVENTRICULAR CONDUCTION DELAY NONSPECIFIC ST & T-WAVE ABNORMALITY ABNORMAL ECG PREVIOUS TRACING : 09/13/2018 09.12 DOCTOR: Bradley Anguiano Interpretating Date/Time 09/28/2018 13:33:17
[2018-09-28 15:39] LABS: Calcium 8.4 mg/dL (8.5-10.1); Potassium 3.6 meq/L (3.5-5.1)
[2018-09-28] MEDS ORDERED: Dextrose 50% in Water 50 ML Vial IV.PUSH PRN (15:50)
[2018-09-28] MEDS ORDERED: DC previous DKA orders (HMC 1917) OTHER ONE (15:50)
[2018-09-28] MEDS ORDERED: DC Insulin drip 2 hrs post basal insulin dose OTHER ONE (15:50)
--- NOTE | 2018-09-28 16:02 | P.PNCC ---
Subjective Subjective Remarks/Hospital Course: 09/27: Patient is a 67-year-old female with history of COPD, diabetes mellitus type 2, CHF, HTN, coronary artery disease, end-stage renal disease on hemodialysis leather lacer Dr. Toro who presented to the emergency department evaluation of shortness of breath and decreased appetite. Apparently she was just discharged from hospital approximately 4 days ago. Compliance with medication and insulin is a concern as EVAC noticed her house was unkempt. Her oxygen saturation was in the 80s on 3 L nasal cannula. Patient received 1 DuoNeb, one albuterol treatment and Solu-Medrol 125 mg and 500 cc normal saline by EMS. Further evaluation in the ED showed that patient was in severe acidosis. Her initial blood sugar was more than 600, beta hydroxybutyrate was more than 15, her pH was 7, PCO2 was 16 PO2 103 and bicarb on ABG was 4 bicarb on chemistry was 6. DKA protocol was initiated and critical care medicine was requested to admit the patient I evaluate the patient in the ED. Currently patient appears ill, septic. She had been started on DKA protocol. Lim ordered by ED as the patient still makes urine. Dr. Toro had been contacted. UA shows evidence of UTI and moderate yeast. Patient had received vancomycin and Zosyn. Chest x-ray shows left-sided effusion which is decreased in size compared to before. She has chronic effusion. I will continue Zosyn and start her on Micafungin for fungal UTI. 09/28: Dialyzed today. Anion gap corrected hence insulin drip stopped and patient started on Levemir and sliding scale insulin. Patient was found with feces in her house and very unkempt at home and DCF was involved. Objective Vital Signs / I&O: Vital Signs 09/27/18 18:31 09/27/18 18:34 09/27/18 21:52 Temperature 96.8 F L Pulse Rate 75 90 Respiratory Rate 13 18 Blood Pressure 122/56 L Pulse Oximetry 4 L 97 09/27/18 21:53 09/27/18 22:14 09/27/18 22:16 Temperature Pulse Rate 90 91 H 91 H Respiratory Rate 20 50 H 21 Blood Pressure 122/51 L 107/51 L Pulse Oximetry 95 09/27/18 23:00 09/28/18 00:00 09/28/18 01:00 Temperature 92.1 F L 94.1 F L 95.4 F L Pulse Rate 91 H 90 88 Respiratory Rate 16 20 11 L Blood Pressure 108/57 L 108/54 L 107/53 L Pulse Oximetry 95 93 L 91 L 09/28/18 01:19 09/28/18 02:00 09/28/18 03:00 Temperature 95.9 F L 96.1 F L Pulse Rate 87 85 Respiratory Rate 20 18 17 Blood Pressure 119/56 L Pulse Oximetry 85 L 97 09/28/18 03:01 09/28/18 04:00 09/28/18 05:00 Temperature 96.1 F L 96.1 F L 96.3 F L Pulse Rate 85 83 83 Respiratory Rate 17 17 14 Blood Pressure 133/62 132/59 L 134/60 Pulse Oximetry 98 99 98 09/28/18 05:01 09/28/18 06:00 09/28/18 06:24 Temperature 96.1 F L Pulse Rate 83 82 Respiratory Rate 14 14 22 Blood Pressure 129/61 Pulse Oximetry 99 91 L 09/28/18 06:36 09/28/18 07:00 09/28/18 08:00 Temperature 95.9 F L 95.9 F L Pulse Rate 81 89 Respiratory Rate 17 26 H Blood Pressure 145/65 H 109/66 Pulse Oximetry 92 L 100 98 09/28/18 08:30 09/28/18 08:33 09/28/18 08:45 Temperature 95.7 F L 95.7 F L Pulse Rate 84 83 85 Respiratory Rate 12 18 11 L Blood Pressure 158/70 H 149/64 H Pulse Oximetry 100 99 09/28/18 09:00 09/28/18 09:15 09/28/18 09:30 Temperature 95.9 F L 96.1 F L 96.3 F L Pulse Rate 86 89 88 Respiratory Rate 14 18 15 Blood Pressure 117/55 L 116/56 L 140/63 Pulse Oximetry 98 96 97 09/28/18 09:45 09/28/18 10:00 09/28/18 10:15 Temperature 96.4 F L 96.4 F L 96.6 F L Pulse Rate 87 87 88 Respiratory Rate 14 15 25 H Blood Pressure 144/63 H 144/63 H 144/63 H Pulse Oximetry 98 99 96 09/28/18 10:30 09/28/18 10:32 09/28/18 10:45 Temperature 96.6 F L 96.6 F L 96.8 F L Pulse Rate 88 88 88 Respiratory Rate 16 14 15 Blood Pressure 140/64 148/67 H 142/64 H Pulse Oximetry 96 99 100 09/28/18 11:00 09/28/18 11:15 09/28/18 11:31 Temperature 96.8 F L 97.0 F L 97.0 F L Pulse Rate 88 88 89 Respiratory Rate 15 18 19 Blood Pressure 139/64 143/63 H 160/70 H Pulse Oximetry 100 100 95 09/28/18 11:45 09/28/18 12:00 09/28/18 12:15 Temperature 97.0 F L 97.2 F L 97.2 F L Pulse Rate 89 88 88 Respiratory Rate 19 18 17 Blood Pressure 154/71 H 145/63 H 145/55 H Pulse Oximetry 96 97 99 09/28/18 12:30 Temperature 97.2 F L Pulse Rate 85 Respiratory Rate 16 Blood Pressure 154/71 H Pulse Oximetry 100 Intake & Output 09/27/18 09/28/18 09/28/18 18:59 06:59 18:59 Intake Total 1050 / 1050 200 / 200 Output Total 100 / 100 3000 / 3000 Balance 950 / 950 -2800 / -2800 Weight 50.349 kg 65.5 kg Intake: IV 1050 / 1050 200 / 200 NovoLIN R (IV Infusion) 100 100 / 100 UNIT In NS Inj 99 ML @ 5 UNITS/ HR 5 mls/hr IV.CONT TITRATE PRN Rx#:[id number] Mycamine Inj 150 MG In NS Inj 100 / 100 100 ML @ 100 mls/hr IV.SIG Q24H [facility] Rx#:[id number] Zosyn 2.25 GM Premix 50 ML @ 100 / 100 100 mls/hr IV.SIG Q8H [facility] Rx#: [id number] KCl 20 mEq Premix Inj 20 meq In 100 / 100 100 / 100 100 ml @ 50 mls/hr IV.SIG Q2H PRN Rx#:[id number] NS Inj 500 ML @ Wide Open IV. 500 / 500 SIG BOLUS [facility] Rx#:[id number] Vancomycin Inj 1,000 MG In NS 250 / 250 Inj 250 ML @ 200 mls/hr IV.SIG ONCE ONE Rx#:[id number] Output: Hemodialysis Amount 3000 / 3000 Urine Amount (Catheter) 100 / 100 Indwelling Urethral Catheter 100 / 100 Other: Weight On Admission 64.5 kg Result Diagrams: 09/27/18 18:41 09/28/18 14:00 Imaging: Impressions Chest X-Ray 09/27/18 18:23 CONCLUSION: Slight improved aeration. Objective Remarks: GENERAL: Ill-appearing 67-year-old female who is lying on bed, not in any acute distress SKIN: Warm and dry. NECK: Supple, trachea midline. No JVD. CARDIOVASCULAR: Regular rate and rhythm without murmurs, gallops, or rubs. RESPIRATORY: Breath sounds diminished equal bilaterally. No accessory muscle use. GASTROINTESTINAL: Abdomen soft, non-tender, nondistended. MUSCULOSKELETAL: No cyanosis, or edema. Right AVG. multiple eschars on bilateral foot NEURO: Alert and oriented. Follows commands no focal deficits Assessment and Plan - Problem List (1) DKA (diabetic ketoacidoses) Code(s): E13.10 - Other specified diabetes mellitus with ketoacidosis without coma Status: Acute (2) Sepsis Code(s): A41.9 - Sepsis, unspecified organism Status: Acute (3) Respiratory insufficiency Code(s): R06.89 - Other abnormalities of breathing Status: Acute (4) Acute UTI Code(s): N39.0 - Urinary tract infection, site not specified Status: Acute (5) ESRD on dialysis Code(s): N18.6 - End stage renal disease; Z99.2 - Dependence on renal dialysis Status: Chronic (6) Pleural effusion Code(s): J90 - Pleural effusion, not elsewhere classified Status: Chronic (7) DM (diabetes mellitus) Code(s): E11.9 - Type 2 diabetes mellitus without complications Status: Chronic (8) CHF (congestive heart failure) Code(s): I50.9 - Heart failure, unspecified Status: Chronic - Assessment and Plan Plan: NEURO: Mild metabolic encephalopathy -Encephalopathy most likely secondary to DKA and sepsis -Pain control with [place] -Continue Neurontin RESP: COPD exacerbation Respiratory insufficiency Chronic left-sided pleural effusion -DuoNeb every 6 hours scheduled and as needed -Metabolic acidosis correction with DKA protocol and bicarb -Received IV Solu-Medrol 125 mg x1 by EMS, avoid further IV steroids due to DKA -Continue Symbicort CV: History of coronary artery disease History of CHF now compensated -Continue careful fluid resuscitation due to end-stage renal disease, per DKA protocol -Hemodialysis if there is fluid overload -Hold Bumex hold nifedipine hold hydralazine -Continue aspirin, pressor gel, carvedilol, atorvastatin GI: -N.p.o. except meds until DKA resolved, IV famotidine : End-stage renal disease on hemodialysis -Monitor renal function closely, monitor for fluid overload. Lim catheter placed in ED -Dr. Toro consulted ID: Sepsis UTI -Antibiotics Zosyn and vancomycin given in the ED, continue Zosyn -Start micafungin -Blood urine and sputum cultures HEME: -Monitor CBC, coags ENDO: Severe DKA -Anion gap corrected. Patient being started on Levemir and sliding scale insulin and DKA protocol being stopped including insulin drip. PROPH: -Bilateral lower extremity SCDs. Subcu heparin/famotidine LINES: -Utilize peripheral IVs, central line if needed Consult and transfer to hospitalist service for further medical management, critical care signing off, please reconsult if needed. (1) DKA (diabetic ketoacidoses) Qualifiers: Diabetes mellitus type: type 2 Diabetes mellitus complication detail: without coma Qualified Code(s): E11.10 - Type 2 diabetes mellitus with ketoacidosis without coma
[2018-09-28] MEDS: Insulin Detemir Inj 1,000 UNIT/10 ML Vial SQ SCH (16:15)
[2018-09-28 20:50] LABS: Calcium 8.1 mg/dL (8.5-10.1); Carbon Dioxide 28.2 meq/L (21.0-32.0); Potassium 4.2 meq/L (3.5-5.1)
[2018-09-28] MEDS: Insulin NovoLIN Regular Correctional Sugar Inj SQ SCH (21:05)
[2018-09-28] MEDS: Gabapentin 100 MG Capsule PO SCH (21:07)
[2018-09-28] MEDS: Micafungin Inj 150 MG in Sodium Chlor 0.9% Inj 100 ML IV.SIG SCH (23:07)
[2018-09-29] MEDS: Piperacil/Tazo 2.25 GM Premix 50 ML IV.SIG SCH ×3 (03:11→22:13)
[2018-09-29] MEDS: Chlorhexidine Gluconate 2% 1 Pack (2 Cloths) TOPICAL SCH (03:12)
[2018-09-29 07:02] LABS: Alanine Aminotransferase 6 U/L (10-53); Albumin 2.3 g/dL (3.4-5.0); Alkaline Phosphatase 105 U/L (45-117); Anion Gap 10 meq/L (5-15); Aspartate Aminotransferase 33 U/L (15-37); Blood Urea Nitrogen 28 mg/dL (7-18); Calcium 8.5 mg/dL (8.5-10.1); Carbon Dioxide 29.7 meq/L (21.0-32.0); Chloride 101 meq/L (98-107); Free T4 (Free Thyroxine) 0.78 ng/dL (0.76-1.46); Glomerular Filtration Rate 20 mL/min (>89); Phosphorus 3.2 mg/dL (2.5-4.9); Potassium 3.8 meq/L (3.5-5.1); Sodium 141 meq/L (136-145)
[2018-09-29 07:30] LABS: Glucose,Random 29 mg/dL (74-106)
[2018-09-29] MEDS: Dextrose 5%/NaCl 0.9% Inj 1,000 ML IV.CONT SCH ×5 (07:35→22:12)
[2018-09-29] MEDS: Insulin NovoLIN Regular Correctional Sugar Inj SQ SCH ×5 (08:16→22:14)
[2018-09-29] MEDS: Carvedilol 6.25 MG Tablet PO SCH ×2 (09:10→21:16)
[2018-09-29] MEDS: Famotidine PF Inj 20 MG/2 ML Vial IV.PUSH SCH ×2 (09:12→21:16)
[2018-09-29] MEDS: Calcium Acetate 667 MG Capsule PO SCH ×4 (09:13→17:33)
[2018-09-29] MEDS: Azithromycin 250 MG Tablet PO SCH (09:15)
[2018-09-29] MEDS: Budesonide-Formoterol 160/4.5 MCG 6 GM Inhaler INH SCH ×2 (09:41→23:46)
[2018-09-29] MEDS: Heparin - SQ 10,000 UNITS/ML Vial SQ SCH ×2 (10:17→21:16)
--- NOTE | 2018-09-29 11:37 | P.PNNP ---
Subjective Interval history: Reports feeling better today. Continues to have shortness of breath but improving. No nausea, vomiting or loss stools. <Jessica Clemons - Last Filed: 09/29/18 11:29> Physical Exam Vital signs: Vital Signs 09/28/18 11:31 09/28/18 11:45 09/28/18 12:00 Temperature 97.0 F L 97.0 F L 97.2 F L Pulse Rate 89 89 88 Respiratory Rate 19 19 18 Blood Pressure 160/70 H 154/71 H 145/63 H Pulse Oximetry 95 96 97 09/28/18 12:15 09/28/18 12:30 09/28/18 12:45 Temperature 97.2 F L 97.2 F L 97.2 F L Pulse Rate 88 85 81 Respiratory Rate 17 16 16 Blood Pressure 145/55 H 154/71 H 151/66 H Pulse Oximetry 99 100 100 09/28/18 13:00 09/28/18 13:15 09/28/18 13:30 Temperature 97.2 F L 97.3 F L 97.3 F L Pulse Rate 80 80 80 Respiratory Rate 16 15 16 Blood Pressure 149/67 H 150/65 H 149/67 H Pulse Oximetry 100 100 100 09/28/18 13:45 09/28/18 14:00 09/28/18 14:15 Temperature 97.3 F L 97.3 F L 97.5 F L Pulse Rate 80 80 82 Respiratory Rate 19 17 20 Blood Pressure 149/67 H 135/63 139/76 Pulse Oximetry 99 98 96 09/28/18 14:30 09/28/18 14:45 09/28/18 15:00 Temperature 97.5 F L 97.7 F 97.9 F Pulse Rate 81 82 82 Respiratory Rate 20 18 17 Blood Pressure 142/78 H 142/71 H 136/64 Pulse Oximetry 99 98 82 L 09/28/18 15:15 09/28/18 15:30 09/28/18 15:45 Temperature 97.9 F 97.9 F 98.1 F Pulse Rate 80 81 84 Respiratory Rate 18 22 19 Blood Pressure 139/63 134/61 137/60 Pulse Oximetry 100 100 97 09/28/18 16:00 09/28/18 16:15 09/28/18 16:18 Temperature 98.1 F 98.1 F Pulse Rate 82 82 82 Respiratory Rate 18 17 18 Blood Pressure 138/63 157/67 H Pulse Oximetry 98 98 09/28/18 16:30 09/28/18 16:45 09/28/18 20:00 Temperature 98.2 F 98.2 F 98.3 F Pulse Rate 83 83 83 Respiratory Rate 20 18 17 Blood Pressure 159/70 H 149/65 H 141/64 H Pulse Oximetry 98 99 96 09/28/18 20:40 09/29/18 00:00 09/29/18 04:00 Temperature Pulse Rate 84 85 85 Respiratory Rate 16 17 8 L Blood Pressure 135/63 157/70 H Pulse Oximetry 96 98 99 09/29/18 04:25 09/29/18 09:25 Temperature Pulse Rate 84 88 Respiratory Rate 18 12 Blood Pressure Pulse Oximetry 99 Intake & Output 09/28/18 09/29/18 09/29/18 18:59 06:59 18:59 Intake Total 470 / 470 200 / 200 150 / 150 Output Total 3100 / 3100 1 / Balance -2630 / -2630 199 / 199 150 / 150 Weight 58 kg Intake: IV 250 / 250 50 / 50 150 / 150 NovoLIN R (IV Infusion) 100 100 / 100 UNIT In NS Inj 99 ML @ 5 UNITS/ HR 5 mls/hr IV.CONT TITRATE PRN Rx#:[id number] Mycamine Inj 150 MG In NS Inj 100 / 100 100 ML @ 100 mls/hr IV.SIG Q24H [facility] Rx#:[id number] Zosyn 2.25 GM Premix 50 ML @ 50 / 50 50 / 50 50 / 50 100 mls/hr IV.SIG Q8H [facility] Rx#: [id number] KCl 20 mEq Premix Inj 20 meq In 100 / 100 100 ml @ 50 mls/hr IV.SIG Q2H PRN Rx#:[id number] Oral 220 / 220 150 / 150 Output: Urine 0 / 0 Stool 1 / 1 Hemodialysis Amount 3000 / 3000 Urine Amount (Catheter) 100 / 100 Indwelling Urethral Catheter 100 / 100 Other: Date of Last Bowel Movement 09/29/18 Narrative: GENERAL: Alert and oriented. . SKIN: Warm and dry. NECK: Supple, trachea midline. No JVD. CARDIOVASCULAR: Regular rate and rhythm without murmurs, gallops, or rubs. AVF right arm, bruising present. RESPIRATORY: Breath sounds diminished bilaterally. No accessory muscle use. GASTROINTESTINAL: Abdomen soft, non-tender, nondistended. MUSCULOSKELETAL: No cyanosis, generalized edema. BACK: Nontender without obvious deformity. No CVA tenderness. - Urinary Catheter Management Indwelling Urethral Catheter Cath placed during this visit: yes, but has since been removed by the nurse Reason for continuing: Decision to DC catheter Insertion date: 09/27/18 Insertion time: 21:45 Removal date: 09/28/18 Removal time: 09:15 <Jessica Clemons - Last Filed: 09/29/18 11:29> Vital signs: Vital Signs 09/28/18 12:45 09/28/18 13:00 09/28/18 13:15 Temperature 97.2 F L 97.2 F L 97.3 F L Pulse Rate 81 80 80 Respiratory Rate 16 16 15 Blood Pressure 151/66 H 149/67 H 150/65 H Pulse Oximetry 100 100 100 09/28/18 13:30 09/28/18 13:45 09/28/18 14:00 Temperature 97.3 F L 97.3 F L 97.3 F L Pulse Rate 80 80 80 Respiratory Rate 16 19 17 Blood Pressure 149/67 H 149/67 H 135/63 Pulse Oximetry 100 99 98 09/28/18 14:15 09/28/18 14:30 09/28/18 14:45 Temperature 97.5 F L 97.5 F L 97.7 F Pulse Rate 82 81 82 Respiratory Rate 20 20 18 Blood Pressure 139/76 142/78 H 142/71 H Pulse Oximetry 96 99 98 09/28/18 15:00 09/28/18 15:15 09/28/18 15:30 Temperature 97.9 F 97.9 F 97.9 F Pulse Rate 82 80 81 Respiratory Rate 17 18 22 Blood Pressure 136/64 139/63 134/61 Pulse Oximetry 82 L 100 100 09/28/18 15:45 09/28/18 16:00 09/28/18 16:15 Temperature 98.1 F 98.1 F 98.1 F Pulse Rate 84 82 82 Respiratory Rate 19 18 17 Blood Pressure 137/60 138/63 157/67 H Pulse Oximetry 97 98 98 09/28/18 16:18 09/28/18 16:30 09/28/18 16:45 Temperature 98.2 F 98.2 F Pulse Rate 82 83 83 Respiratory Rate 18 20 18 Blood Pressure 159/70 H 149/65 H Pulse Oximetry 98 99 09/28/18 20:00 09/28/18 20:40 09/29/18 00:00 Temperature 98.3 F Pulse Rate 83 84 85 Respiratory Rate 17 16 17 Blood Pressure 141/64 H 135/63 Pulse Oximetry 96 96 98 09/29/18 04:00 09/29/18 04:25 09/29/18 08:00 Temperature Pulse Rate 85 84 88 Respiratory Rate 8 L 18 Blood Pressure 157/70 H Pulse Oximetry 99 09/29/18 09:25 Temperature Pulse Rate 88 Respiratory Rate 12 Blood Pressure Pulse Oximetry 99 Intake & Output 09/28/18 09/29/18 09/29/18 18:59 06:59 18:59 Intake Total 470 / 470 200 / 200 150 / 150 Output Total 3100 / 3100 1 Balance -2630 / -2630 199 / 199 150 / 150 Weight 58 kg Intake: IV 250 / 250 50 / 50 150 / 150 NovoLIN R (IV Infusion) 100 100 / 100 UNIT In NS Inj 99 ML @ 5 UNITS/ HR 5 mls/hr IV.CONT TITRATE PRN Rx#:[id number] Mycamine Inj 150 MG In NS Inj 100 / 100 100 ML @ 100 mls/hr IV.SIG Q24H [facility] Rx#:[id number] Zosyn 2.25 GM Premix 50 ML @ 50 / 50 50 / 50 50 / 50 100 mls/hr IV.SIG Q8H [facility] Rx#: [id number] KCl 20 mEq Premix Inj 20 meq In 100 / 100 100 ml @ 50 mls/hr IV.SIG Q2H PRN Rx#:[id number] Oral 220 / 220 150 / 150 Output: Urine 0 / 0 Stool 1 / 1 Hemodialysis Amount 3000 / 3000 Urine Amount (Catheter) 100 / 100 Indwelling Urethral Catheter 100 / 100 Other: Date of Last Bowel Movement 09/29/18 09/29/18 - Urinary Catheter Management Indwelling Urethral Catheter Cath placed during this visit: no <Des Toro - Last Filed: 09/29/18 12:41> Assessment and Plan - Assessment (1) ESRD (end stage renal disease) on dialysis Code(s): N18.6 - End stage renal disease; Z99.2 - Dependence on renal dialysis Status: Acute Plan: End stage renal disease on hemodialysis on Wednesday, Wednesday, and Wednesday. Hemodialysis yesterday with removal of 3 liters of fluid. Has right AVF with bruising present will monitor. Avoid IVF administration an gadolinium. Will continue Epogen with dialysis. (2) Acute UTI Code(s): N39.0 - Urinary tract infection, site not specified Status: Acute Plan: On antibiotics. (3) Diabetes Code(s): E11.9 - Type 2 diabetes mellitus without complications Status: Acute Qualifiers: Diabetes mellitus intermediate frame tender insulin use: with intermediate frame tender use Plan: Hypoglycemia this morning, on insulin. Recommend to maintain blood sugars between 140 mg/dl to 180 mg/dl. (4) Hypertension Code(s): I10 - Essential (primary) hypertension Status: Acute Plan: Will monitor, on coreg. <Jessica Clemons - Last Filed: 09/29/18 11:29> - Assessment (1) ESRD (end stage renal disease) on dialysis Code(s): N18.6 - End stage renal disease; Z99.2 - Dependence on renal dialysis Status: Acute Plan: Patient seen and examined, agree with above. Breathing is much better, with nasal cannula. Will continue HD MWF. (2) Acute UTI Code(s): N39.0 - Urinary tract infection, site not specified Status: Acute (3) Diabetes Code(s): E11.9 - Type 2 diabetes mellitus without complications Status: Acute Qualifiers: Diabetes mellitus prison insulin use: with prison use (4) Hypertension Code(s): I10 - Essential (primary) hypertension Status: Acute <Des Toro - Last Filed: 09/29/18 12:41>
[2018-09-29] MEDS: Insulin Detemir Inj 1,000 UNIT/10 ML Vial SQ SCH ×2 (15:11→22:13)
--- NOTE | 2018-09-29 15:23 | P.PN ---
Subjective Interval history: Follow up for DKA, COPD exacerbation, ESRD. Patient is resting in bed. Denies any chest pain, SOB, fever, chills. She had hypoglycemic episodes earlier. However, she had food and we checked her BG which was 257. Physical Exam Vital signs: Vital Signs 09/28/18 15:30 09/28/18 15:45 09/28/18 16:00 Temperature 97.9 F 98.1 F 98.1 F Pulse Rate 81 84 82 Respiratory Rate 22 19 18 Blood Pressure 134/61 137/60 138/63 Pulse Oximetry 100 97 98 09/28/18 16:15 09/28/18 16:18 09/28/18 16:30 Temperature 98.1 F 98.2 F Pulse Rate 82 82 83 Respiratory Rate 17 18 20 Blood Pressure 157/67 H 159/70 H Pulse Oximetry 98 98 09/28/18 16:45 09/28/18 20:00 09/28/18 20:40 Temperature 98.2 F 98.3 F Pulse Rate 83 83 84 Respiratory Rate 18 17 16 Blood Pressure 149/65 H 141/64 H Pulse Oximetry 99 96 96 09/29/18 00:00 09/29/18 04:00 09/29/18 04:25 Temperature Pulse Rate 85 85 84 Respiratory Rate 17 8 L 18 Blood Pressure 135/63 157/70 H Pulse Oximetry 98 99 09/29/18 08:00 09/29/18 09:25 Temperature Pulse Rate 88 88 Respiratory Rate 12 Blood Pressure Pulse Oximetry 99 Intake & Output 09/28/18 09/29/18 09/29/18 18:59 06:59 18:59 Intake Total 470 / 470 200 / 200 150 / 150 Output Total 3100 / 3100 Balance -2630 / -2630 199 / 199 150 / 150 Weight 58 kg Intake: IV 250 / 250 50 / 50 150 / 150 NovoLIN R (IV Infusion) 100 100 / 100 UNIT In NS Inj 99 ML @ 5 UNITS/ HR 5 mls/hr IV.CONT TITRATE PRN Rx#:[id number] Mycamine Inj 150 MG In NS Inj 100 / 100 100 ML @ 100 mls/hr IV.SIG Q24H [facility] Rx#:[id number] Zosyn 2.25 GM Premix 50 ML @ 50 / 50 50 / 50 50 / 50 100 mls/hr IV.SIG Q8H [facility] Rx#: [id number] KCl 20 mEq Premix Inj 20 meq In 100 / 100 100 ml @ 50 mls/hr IV.SIG Q2H [facility] Rx#:[id number] Oral 220 / 220 150 / 150 Output: Urine 0 / 0 Stool 1 / 1 Hemodialysis Amount 3000 / 3000 Urine Amount (Catheter) 100 / 100 Indwelling Urethral Catheter 100 / 100 Other: Date of Last Bowel Movement 09/29/18 09/29/18 Narrative: GENERAL: Alert and oriented. . SKIN: Warm and dry. NECK: Supple, trachea midline. No JVD. CARDIOVASCULAR: Regular rate and rhythm without murmurs, gallops, or rubs. AVF right arm, bruising present. RESPIRATORY: Breath sounds diminished bilaterally. No accessory muscle use. GASTROINTESTINAL: Abdomen soft, non-tender, nondistended. MUSCULOSKELETAL: No cyanosis, generalized edema. BACK: Nontender without obvious deformity. No CVA tenderness. - Urinary Catheter Management Indwelling Urethral Catheter Cath placed during this visit: yes, but has since been removed by the nurse Reason for continuing: Decision to DC catheter Insertion date: 09/27/18 Insertion time: 21:45 Removal date: 09/28/18 Removal time: 09:15 Results - Labs CBC & Chem 7: 09/27/18 18:41 09/29/18 05:20 Laboratory Results - last 24 hr 09/28/18 09/28/18 09/28/18 14:00 15:17 15:35 Sodium 140 Potassium 3.6 Chloride 101 Carbon Dioxide 30.0 D Anion Gap 9 BUN 26 H Creatinine 2.21 H Estimated GFR 22 L POC Glucose 140 H 141 H Random Glucose 151 H D Calcium 8.4 L Phosphorus Magnesium Total Bilirubin AST ALT Alkaline Phosphatase Total Protein Albumin TSH Free T4 09/28/18 09/28/18 09/28/18 16:02 17:37 20:15 Sodium 139 Potassium 4.2 Chloride 103 Carbon Dioxide 28.2 Anion Gap 8 BUN 26 H Creatinine 2.29 H Estimated GFR 21 L POC Glucose 141 H 146 H Random Glucose 103 Calcium 8.1 L Phosphorus Magnesium Total Bilirubin AST ALT Alkaline Phosphatase Total Protein Albumin TSH Free T4 09/28/18 09/29/18 09/29/18 20:54 05:20 08:39 Sodium 141 Potassium 3.8 Chloride 101 Carbon Dioxide 29.7 Anion Gap 10 BUN 28 H Creatinine 2.39 H Estimated GFR 20 L POC Glucose 96 55 L Random Glucose 29 L* Calcium 8.5 Phosphorus 3.2 Magnesium 2.0 Total Bilirubin 0.3 AST 33 ALT 6 L Alkaline Phosphatase 105 Total Protein 6.0 L Albumin 2.3 L TSH 2.680 Free T4 0.78 09/29/18 14:32 Sodium Potassium Chloride Carbon Dioxide Anion Gap BUN Creatinine Estimated GFR POC Glucose 257 H Random Glucose Calcium Phosphorus Magnesium Total Bilirubin AST ALT Alkaline Phosphatase Total Protein Albumin TSH Free T4 Microbiology 09/27/18 18:56 Catheterized Urine Urine Culture - Preliminary Yeast - ID to follow 09/27/18 18:40 Blood - Peripheral Aerobic Blood Culture - Preliminary No growth in 2 days 09/27/18 18:40 Blood - Peripheral Anaerobic Blood Culture - Preliminary No growth in 2 days 09/27/18 18:40 Blood - Peripheral Aerobic Blood Culture - Preliminary No growth in 2 days 09/27/18 18:40 Blood - Peripheral Anaerobic Blood Culture - Preliminary No growth in 2 days Assessment and Plan - Plan Patient is a 67-year-old female with history of COPD, diabetes mellitus type 2, CHF, HTN, coronary artery disease, end-stage renal disease on HD, who presented to the emergency department evaluation of shortness of breath and decreased appetite. Her oxygen saturation was in the 80s on 3 L nasal cannula. Patient received 1 DuoNeb, one albuterol treatment and Solu-Medrol 125 mg and 500 cc normal saline by EMS. Further evaluation in the ED showed that patient was in severe acidosis. Her initial blood sugar was more than 600, beta hydroxybutyrate was more than 15, her pH was 7, PCO2 was 16 PO2 103 and bicarb on ABG was 4 bicarb on chemistry was 6. DKA protocol was initiated and critical care medicine was requested to admit the patient. Patients care was transferred to the hospitalist service on 09/29/2018. Mild metabolic encephalopathy -Encephalopathy most likely secondary to DKA and sepsis -Pain control with [place] -Continue Neurontin COPD exacerbation Chronic left-sided pleural effusion Probable left sided pneumonia -DuoNeb every 6 hours scheduled and as needed -Metabolic acidosis corrected with DKA protocol and bicarb -Received IV Solu-Medrol 125 mg x1 by EMS, avoid further IV steroids due to DKA -Continue Symbicort -Patient is currently on Zosyn. We can consider switching to Levaquin PO. End-stage renal disease on hemodialysis -Monitor renal function closely, monitor for fluid overload. Lim catheter placed in ED -Dr. Toro consulted UTI with yeast infection Currently on Zosyn and Micafungin Depending on the susceptibility, we can consider PO Fluconazole for 14 days. Severe DKA -Anion gap corrected. -Patient was hypoglycemic earlier but improved after eating. -Currently on Levemir 5units BID and sliding scale insulin with regular insulin -Will start Levemir 12 units QHS and switch regular insulin to Aspart sliding scale insulin. -Consider pre-meal insulin 3-5 units TIDAC if BG remains elevated. Full code. Heparin SQ.
[2018-09-29 16:36] LABS: Hemoglobin A1c 10.2 % (4.3-6.0)
[2018-09-29] MEDS: Gabapentin 100 MG Capsule PO SCH (21:18)
[2018-09-29] MEDS ORDERED: Dextrose 50% in Water 50 ML Vial IV.PUSH PRN (22:32)
[2018-09-29] MEDS: Micafungin Inj 150 MG in Sodium Chlor 0.9% Inj 100 ML IV.SIG SCH (23:46)
[2018-09-30] MEDS: Chlorhexidine Gluconate 2% 1 Pack (2 Cloths) TOPICAL SCH (03:37)
[2018-09-30] MEDS: Piperacil/Tazo 2.25 GM Premix 50 ML IV.SIG SCH (03:37)
[2018-09-30] MEDS: Dextrose 5%/NaCl 0.9% Inj 1,000 ML IV.CONT SCH ×3 (04:36→19:37)
[2018-09-30] MEDS: Insulin NovoLOG Aspart Correctional Sugar Inj SQ SCH ×4 (08:32→21:03)
[2018-09-30] MEDS ORDERED: Insulin Detemir Inj 1,000 UNIT/10 ML Vial SQ ONE (09:00)
--- NOTE | 2018-09-30 11:43 | P.PNNP ---
Subjective Interval history: Seen during hemodialysis, reports that she is feeling better. Blood cultures thus far negative, urine positive for yeast. <KarlosadrianJessica - Last Filed: 09/30/18 12:36> Physical Exam Vital signs: Vital Signs 09/29/18 12:30 09/29/18 12:45 09/29/18 13:00 Temperature Pulse Rate 84 84 84 Respiratory Rate 16 23 19 Blood Pressure 145/67 H 126/59 L 135/55 L Pulse Oximetry 100 98 100 09/29/18 13:15 09/29/18 13:30 09/29/18 13:46 Temperature Pulse Rate 84 84 85 Respiratory Rate 11 L 17 10 L Blood Pressure 156/68 H 157/68 H 144/65 H Pulse Oximetry 100 100 09/29/18 14:00 09/29/18 14:15 09/29/18 14:30 Temperature Pulse Rate 85 85 86 Respiratory Rate 18 17 18 Blood Pressure 138/65 148/66 H 145/65 H Pulse Oximetry 95 98 95 09/29/18 14:45 09/29/18 15:00 09/29/18 15:15 Temperature Pulse Rate 86 86 86 Respiratory Rate 18 0 L 0 L Blood Pressure 146/63 H 157/67 H 154/68 H Pulse Oximetry 96 97 97 09/29/18 15:30 09/29/18 15:46 09/29/18 16:00 Temperature 99.2 F Pulse Rate 86 87 87 Respiratory Rate 18 Blood Pressure 174/70 H 151/67 H 142/63 H Pulse Oximetry 100 92 L 09/29/18 16:30 09/29/18 17:00 09/29/18 17:31 Temperature Pulse Rate 87 87 87 Respiratory Rate Blood Pressure 153/66 H 171/78 H 156/68 H Pulse Oximetry 99 99 77 L 09/29/18 18:00 09/29/18 18:01 09/29/18 18:16 Temperature Pulse Rate 89 89 88 Respiratory Rate Blood Pressure 186/84 H 156/67 H Pulse Oximetry 98 99 84 L 09/29/18 18:30 09/29/18 19:00 09/29/18 19:30 Temperature Pulse Rate 89 88 70 Respiratory Rate Blood Pressure 156/57 H 140/63 150/67 H Pulse Oximetry 95 98 98 09/29/18 20:00 09/29/18 20:01 09/29/18 21:05 Temperature 98.9 F 98.5 F Pulse Rate 88 72 88 Respiratory Rate 19 Blood Pressure 153/69 H 133/63 Pulse Oximetry 98 99 98 09/30/18 00:00 09/30/18 03:48 09/30/18 04:00 Temperature 98.6 F 98.8 F Pulse Rate 86 81 82 Respiratory Rate 17 16 15 Blood Pressure 158/68 H 156/70 H Pulse Oximetry 96 99 09/30/18 07:56 09/30/18 08:00 Temperature 97.7 F Pulse Rate 76 79 Respiratory Rate 16 16 Blood Pressure 135/74 Pulse Oximetry 99 99 Intake & Output 09/29/18 09/30/18 09/30/18 18:59 06:59 18:59 Intake Total 470 / 470 1440 / 1440 Output Total 0 / 0 Balance 470 / 470 1440 / 1440 Weight 65.9 kg Intake: IV 200 / 200 1200 / 1200 D5W/Normal Saline Inj 1,000 ML 1000 / 1000 @ 200 mls/hr IV.CONT .Q5H [facility] Rx#:[id number] Mycamine Inj 150 MG In NS Inj 100 / 100 100 / 100 100 ML @ 100 mls/hr IV.SIG Q24H [facility] Rx#:[id number] Zosyn 2.25 GM Premix 50 ML @ 100 / 100 100 / 100 100 mls/hr IV.SIG Q8H [facility] Rx#: [id number] Oral 270 / 270 240 / 240 Output: Urine 0 / 0 Other: Date of Last Bowel Movement 09/29/18 Narrative: GENERAL: Alert and oriented. . SKIN: Warm and dry. NECK: Supple, trachea midline. No JVD. CARDIOVASCULAR: Regular rate and rhythm without murmurs, gallops, or rubs. AVF right arm, bruising present. RESPIRATORY: Breath sounds diminished bilaterally. No accessory muscle use. GASTROINTESTINAL: Abdomen soft, non-tender, nondistended. MUSCULOSKELETAL: No cyanosis, no edema BACK: Nontender without obvious deformity. No CVA tenderness. - Urinary Catheter Management Indwelling Urethral Catheter Cath placed during this visit: yes, but has since been removed by the nurse Reason for continuing: Decision to DC catheter Insertion date: 09/27/18 Insertion time: 21:45 Removal date: 09/28/18 Removal time: 09:15 <Jessica Clemons - Last Filed: 09/30/18 12:36> Vital signs: Intake & Output 10/04/18 10/05/18 10/05/18 18:59 06:59 18:59 Other: Date of Last Bowel Movement 10/04/18 - Urinary Catheter Management Indwelling Urethral Catheter Cath placed during this visit: no <Des Toro - Last Filed: 10/05/18 18:30> Assessment and Plan - Assessment (1) ESRD (end stage renal disease) on dialysis Code(s): N18.6 - End stage renal disease; Z99.2 - Dependence on renal dialysis Status: Acute Plan: End stage renal disease on hemodialysis on Wednesday, Wednesday, and Wednesday. Has right AVG with bruising recent proximaliztion for steel syndrome. Avoid IVF administration an gadolinium. Will continue Epogen with dialysis. Hemodialysis today will remove fluid as tolerated. Will continue HD 3x week (2) Acute UTI Code(s): N39.0 - Urinary tract infection, site not specified Status: Acute Plan: On antibiotics. (3) Diabetes Code(s): E11.9 - Type 2 diabetes mellitus without complications Status: Acute Qualifiers: Diabetes mellitus long term care social worker insulin use: with nursing home use Plan: Elevated. Recommend to maintain blood sugars between 140 mg/dl to 180 mg/dl. (4) Hypertension Code(s): I10 - Essential (primary) hypertension Status: Acute Plan: Will monitor, on coreg. <Jessica Clemons - Last Filed: 09/30/18 12:36> - Assessment (1) ESRD (end stage renal disease) on dialysis Code(s): N18.6 - End stage renal disease; Z99.2 - Dependence on renal dialysis Status: Acute Plan: Patient seen and examined, agree with above. HD done and tolerated well. AVF revision site with good Bruit. (2) Acute UTI Code(s): N39.0 - Urinary tract infection, site not specified Status: Acute (3) Diabetes Code(s): E11.9 - Type 2 diabetes mellitus without complications Status: Acute Qualifiers: Diabetes mellitus nursing home insulin use: with nursing home use (4) Hypertension Code(s): I10 - Essential (primary) hypertension Status: Acute <Des Toro - Last Filed: 10/05/18 18:30>
--- NOTE | 2018-09-30 11:58 | P.PNIM ---
Subjective Interval history: Patient reports overall she is feeling better. She would like to go to a care home facility upon discharge from the hospital to get stronger. Physical Exam Vital signs: Vital Signs 09/29/18 12:30 09/29/18 12:45 09/29/18 13:00 Temperature Pulse Rate 84 84 84 Respiratory Rate 16 23 19 Blood Pressure 145/67 H 126/59 L 135/55 L Pulse Oximetry 100 98 100 09/29/18 13:15 09/29/18 13:30 09/29/18 13:46 Temperature Pulse Rate 84 84 85 Respiratory Rate 11 L 17 10 L Blood Pressure 156/68 H 157/68 H 144/65 H Pulse Oximetry 100 100 09/29/18 14:00 09/29/18 14:15 09/29/18 14:30 Temperature Pulse Rate 85 85 86 Respiratory Rate 18 17 18 Blood Pressure 138/65 148/66 H 145/65 H Pulse Oximetry 95 98 95 09/29/18 14:45 09/29/18 15:00 09/29/18 15:15 Temperature Pulse Rate 86 86 86 Respiratory Rate 18 0 L 0 L Blood Pressure 146/63 H 157/67 H 154/68 H Pulse Oximetry 96 97 97 09/29/18 15:30 09/29/18 15:46 09/29/18 16:00 Temperature 99.2 F Pulse Rate 86 87 87 Respiratory Rate 18 Blood Pressure 174/70 H 151/67 H 142/63 H Pulse Oximetry 100 92 L 09/29/18 16:30 09/29/18 17:00 09/29/18 17:31 Temperature Pulse Rate 87 87 87 Respiratory Rate Blood Pressure 153/66 H 171/78 H 156/68 H Pulse Oximetry 99 99 77 L 09/29/18 18:00 09/29/18 18:01 09/29/18 18:16 Temperature Pulse Rate 89 89 88 Respiratory Rate Blood Pressure 186/84 H 156/67 H Pulse Oximetry 98 99 84 L 09/29/18 18:30 09/29/18 19:00 09/29/18 19:30 Temperature Pulse Rate 89 88 70 Respiratory Rate Blood Pressure 156/57 H 140/63 150/67 H Pulse Oximetry 95 98 98 09/29/18 20:00 09/29/18 20:01 09/29/18 21:05 Temperature 98.9 F 98.5 F Pulse Rate 88 72 88 Respiratory Rate 19 Blood Pressure 153/69 H 133/63 Pulse Oximetry 98 99 98 09/30/18 00:00 09/30/18 03:48 09/30/18 04:00 Temperature 98.6 F 98.8 F Pulse Rate 86 81 82 Respiratory Rate 17 16 15 Blood Pressure 158/68 H 156/70 H Pulse Oximetry 96 99 09/30/18 07:56 09/30/18 08:00 Temperature 97.7 F Pulse Rate 76 79 Respiratory Rate 16 16 Blood Pressure 135/74 Pulse Oximetry 99 99 Intake & Output 09/29/18 09/30/18 09/30/18 18:59 06:59 18:59 Intake Total 470 / 470 1440 / 1440 Output Total 0 / 0 Balance 470 / 470 1440 / 1440 Weight 65.9 kg Intake: IV 200 / 200 1200 / 1200 D5W/Normal Saline Inj 1,000 ML 1000 / 1000 @ 200 mls/hr IV.CONT .Q5H [facility] Rx#:[id number] Mycamine Inj 150 MG In NS Inj 100 / 100 100 / 100 100 ML @ 100 mls/hr IV.SIG Q24H [facility] Rx#:[id number] Zosyn 2.25 GM Premix 50 ML @ 100 / 100 100 / 100 100 mls/hr IV.SIG Q8H [facility] Rx#: [id number] Oral 270 / 270 240 / 240 Output: Urine 0 / 0 Other: Date of Last Bowel Movement 09/29/18 Narrative: GENERAL: Alert and oriented. . SKIN: Warm and dry. NECK: Supple, trachea midline. No JVD. CARDIOVASCULAR: Regular rate and rhythm AVF right arm, bruising present. RESPIRATORY: Breath sounds diminished bilaterally. No accessory muscle use. GASTROINTESTINAL: Abdomen soft, non-tender, nondistended. Normoactive bowel sounds MUSCULOSKELETAL: No cyanosis, no edema - Urinary Catheter Management Indwelling Urethral Catheter Cath placed during this visit: yes, but has since been removed by the nurse Reason for continuing: Decision to DC catheter Insertion date: 09/27/18 Insertion time: 21:45 Removal date: 09/28/18 Removal time: 09:15 Results - Labs CBC & Chem 7: 09/27/18 18:41 09/29/18 05:20 Laboratory Results - last 24 hr 09/29/18 09/29/18 09/29/18 05:20 14:32 16:04 POC Glucose 257 H 335 H Hemoglobin A1c 10.2 H 09/29/18 09/30/18 09/30/18 21:35 05:23 08:13 POC Glucose 340 H 259 H 228 H Hemoglobin A1c Microbiology 09/27/18 18:40 Blood - Peripheral Aerobic Blood Culture - Preliminary No growth in 3 days 09/27/18 18:40 Blood - Peripheral Anaerobic Blood Culture - Preliminary No growth in 3 days 09/27/18 18:40 Blood - Peripheral Aerobic Blood Culture - Preliminary No growth in 3 days 09/27/18 18:40 Blood - Peripheral Anaerobic Blood Culture - Preliminary No growth in 3 days 09/27/18 18:56 Catheterized Urine Urine Culture - Preliminary Yeast - ID to follow Assessment and Plan - Plan Patient is a 67-year-old female with history of COPD, diabetes mellitus type 2, CHF, HTN, coronary artery disease, end-stage renal disease on HD, who presented to the emergency department evaluation of shortness of breath and decreased appetite. Further evaluation in the ED showed that patient was in severe acidosis. Her initial blood sugar was more than 600, beta hydroxybutyrate was more than 15, her pH was 7, PCO2 was 16 PO2 103 and bicarb on ABG was 4 bicarb on chemistry was 6. DKA protocol was initiated and critical care medicine was requested to admit the patient. Patients care was transferred to the hospitalist service on 09/29/2018. Mild metabolic encephalopathy -currently resolved -Encephalopathy most likely secondary to DKA and sepsis COPD with acute exacerbation Chronic left-sided pleural effusion Probable left sided pneumonia -DuoNeb every 6 hours scheduled and as needed -Metabolic acidosis corrected with DKA protocol and bicarb -Received IV Solu-Medrol 125 mg x1 by EMS, avoid further IV steroids due to DKA -Continue Symbicort -Patient is currently on Zosyn. Will switch to p.o. Levaquin End-stage renal disease on hemodialysis -Monitor renal function closely, monitor for fluid overload. Lim catheter placed in ED and will be discontinued. -Dr. Toro following appreciate recommendations. Hemodialysis on Wednesday UTI with yeast infection Currently on Zosyn and Micafungin, Zosyn will be discontinued and switch over to Levaquin Depending on the susceptibility, we can consider PO Fluconazole for 14 days. Severe DKAresolved -Anion gap corrected. 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 -Currently on Levemir 10 units subcu nightly will increase to 15 units. Most consider preprandial NovoLog should blood sugar continue to be elevated. DVT prophylaxis. Heparin SQ. Consider physical therapy Discharge Planning: group home facility in the next 24-48 hours.
--- NOTE | 2018-09-30 15:25 | P.PNVS ---
Subjective Subjective/Hospital Course: called to evaluate the patient right 1st digit She complain of pain in her finger during HD I saw her during HD and her pain seems to be controlled Objective Vital Signs / I&O: Vital Signs 09/29/18 15:30 09/29/18 15:46 09/29/18 16:00 Temperature 99.2 F Pulse Rate 86 87 87 Respiratory Rate 18 Blood Pressure 174/70 H 151/67 H 142/63 H Pulse Oximetry 100 92 L 09/29/18 16:30 09/29/18 17:00 09/29/18 17:31 Temperature Pulse Rate 87 87 87 Respiratory Rate Blood Pressure 153/66 H 171/78 H 156/68 H Pulse Oximetry 99 99 77 L 09/29/18 18:00 09/29/18 18:01 09/29/18 18:16 Temperature Pulse Rate 89 89 88 Respiratory Rate Blood Pressure 186/84 H 156/67 H Pulse Oximetry 98 99 84 L 09/29/18 18:30 09/29/18 19:00 09/29/18 19:30 Temperature Pulse Rate 89 88 70 Respiratory Rate Blood Pressure 156/57 H 140/63 150/67 H Pulse Oximetry 95 98 98 09/29/18 20:00 09/29/18 20:01 09/29/18 21:05 Temperature 98.9 F 98.5 F Pulse Rate 88 72 88 Respiratory Rate 19 Blood Pressure 153/69 H 133/63 Pulse Oximetry 98 99 98 09/30/18 00:00 09/30/18 03:48 09/30/18 04:00 Temperature 98.6 F 98.8 F Pulse Rate 86 81 82 Respiratory Rate 17 16 15 Blood Pressure 158/68 H 156/70 H Pulse Oximetry 96 99 09/30/18 07:56 09/30/18 08:00 Temperature 97.7 F Pulse Rate 76 79 Respiratory Rate 16 16 Blood Pressure 135/74 Pulse Oximetry 99 99 Intake & Output 09/29/18 09/30/18 09/30/18 18:59 06:59 18:59 Intake Total 470 / 470 1440 / 1440 Output Total 0 / 0 2500 / 2500 Balance 470 / 470 1440 / 1440 -2500 / -2500 Weight 65.9 kg Intake: IV 200 / 200 1200 / 1200 D5W/Normal Saline Inj 1,000 ML 1000 / 1000 @ 200 mls/hr IV.CONT .Q5H [facility] Rx#:[id number] Mycamine Inj 150 MG In NS Inj 100 / 100 100 / 100 100 ML @ 100 mls/hr IV.SIG Q24H [facility] Rx#:[id number] Zosyn 2.25 GM Premix 50 ML @ 100 / 100 100 / 100 100 mls/hr IV.SIG Q8H [facility] Rx#: [id number] Oral 270 / 270 240 / 240 Output: Urine 0 / 0 Hemodialysis Amount 2500 / 2500 Other: Date of Last Bowel Movement 09/29/18 Physical Exam: RUE AVF with good thrill She is receiving HD with good flow and pressure +1 palpable R radial pulse with multiphasic Doppler signal Right 1st digit with dry eschar, no signs of infection Laboratory Results - last 24 hr 09/27/18 09/29/18 09/29/18 18:56 05:20 16:04 POC Glucose 335 H Hemoglobin A1c 10.2 H Urine Color Yellow Urine Clarity Turbid H Urine pH 5.0 Ur Specific [place] 1.016 Urine Protein 500 or greater Urine Glucose (UA) 500 or greater Urine Ketones 20 Urine Occult Blood Large H Urine Nitrate Negative Urine Bilirubin Negative Urine Urobilinogen Less than 2 Ur Leukocyte Esterase Large H Urine RBC 59 H Urine WBC Urine WBC Clumps Many H Ur Squamous Epith Cells 1 Urine Yeast Moderate H Micro UA Comment Culture indicated Urine Culture Comments Culture indicated 09/29/18 09/30/18 09/30/18 21:35 05:23 08:13 POC Glucose 340 H 259 H 228 H Hemoglobin A1c Urine Color Urine Clarity Urine pH Ur Specific [place] Urine Protein Urine Glucose (UA) Urine Ketones Urine Occult Blood Urine Nitrate Urine Bilirubin Urine Urobilinogen Ur Leukocyte Esterase Urine RBC Urine WBC Urine WBC Clumps Ur Squamous Epith Cells Urine Yeast Micro UA Comment Urine Culture Comments 09/30/18 12:22 POC Glucose 133 H Hemoglobin A1c Urine Color Urine Clarity Urine pH Ur Specific [place] Urine Protein Urine Glucose (UA) Urine Ketones Urine Occult Blood Urine Nitrate Urine Bilirubin Urine Urobilinogen Ur Leukocyte Esterase Urine RBC Urine WBC Urine WBC Clumps Ur Squamous Epith Cells Urine Yeast Micro UA Comment Urine Culture Comments Microbiology 09/27/18 18:56 Urine Culture - Final Catheterized Urine [place] 09/27/18 18:40 Aerobic Blood Culture - Preliminary Blood - Peripheral No growth in 3 days Anaerobic Blood Culture - Preliminary No growth in 3 days 09/27/18 18:40 Aerobic Blood Culture - Preliminary Blood - Peripheral No growth in 3 days Anaerobic Blood Culture - Preliminary No growth in 3 days Assessment and Plan - Plan right 1st digit pain Hx of RUE steal syndrome S/P proximalizaion of RUE AVF No signs of ALI I believe that her steal syndrome has been treated successfully, hint the first digit wound is healing appropriately Most of her pain happens during HD and I think this will improve with time specially after her 1st digit wound heals completely No vascular intervention needed at this time Thank you for allowing me to participate in this patient care Nura Hernandez MD [facility] [phone]
[2018-09-30] MEDS: Heparin - SQ 10,000 UNITS/ML Vial SQ SCH ×2 (15:41→21:02)
[2018-09-30] MEDS: Azithromycin 250 MG Tablet PO SCH (15:42)
[2018-09-30] MEDS: Carvedilol 6.25 MG Tablet PO SCH ×2 (15:42→21:02)
[2018-09-30] MEDS: Calcium Acetate 667 MG Capsule PO SCH ×3 (15:42→18:07)
[2018-09-30] MEDS: Budesonide-Formoterol 160/4.5 MCG 6 GM Inhaler INH SCH ×2 (15:43→21:53)
[2018-09-30] MEDS: Famotidine PF Inj 20 MG/2 ML Vial IV.PUSH SCH (19:37)
[2018-09-30] MEDS ORDERED: Insulin Detemir Inj 1,000 UNIT/10 ML Vial SQ SCH ×2 (21:00)
[2018-09-30] MEDS: Gabapentin 100 MG Capsule PO SCH (21:02)
[2018-10-01] MEDS: Chlorhexidine Gluconate 2% 1 Pack (2 Cloths) TOPICAL SCH (03:51)
[2018-10-01] MEDS: Insulin NovoLOG Aspart Correctional Sugar Inj SQ SCH ×4 (09:30→21:30)
[2018-10-01] MEDS: Carvedilol 6.25 MG Tablet PO SCH ×2 (09:54→21:39)
[2018-10-01] MEDS: Budesonide-Formoterol 160/4.5 MCG 6 GM Inhaler INH SCH ×2 (09:55→21:31)
[2018-10-01] MEDS: Fluconazole 100 MG Tablet PO SCH (09:55)
[2018-10-01] MEDS: Azithromycin 250 MG Tablet PO SCH (09:55)
[2018-10-01] MEDS: Calcium Acetate 667 MG Capsule PO SCH ×3 (09:55→18:30)
[2018-10-01] MEDS: Heparin - SQ 10,000 UNITS/ML Vial SQ SCH ×2 (10:23→21:29)
[2018-10-01] MEDS ORDERED: Benzonatate 100 MG Capsule PO PRN (13:35)
[2018-10-01] MEDS ORDERED: MethylPREDNISolone Sod Succinate Inj 40 MG/ML Vial IV.PUSH ONE (14:30)
--- NOTE | 2018-10-01 17:12 | P.PNIM ---
Subjective Interval history: Chief complaint today is cough and rib pain following overnight coughing. Physical Exam Vital signs: Vital Signs 09/30/18 20:00 09/30/18 20:16 10/01/18 00:00 Temperature 98.7 F 98.1 F Pulse Rate 84 84 80 Respiratory Rate 16 19 14 Blood Pressure 158/88 H 157/72 H Pulse Oximetry 100 98 100 10/01/18 00:41 10/01/18 04:00 10/01/18 04:22 Temperature 98.9 F Pulse Rate 75 82 72 Respiratory Rate 16 14 14 Blood Pressure 100/48 L Pulse Oximetry 99 97 10/01/18 08:00 10/01/18 09:55 10/01/18 12:00 Temperature Pulse Rate 78 94 H 79 Respiratory Rate 16 Blood Pressure Pulse Oximetry 98 98 10/01/18 15:30 Temperature Pulse Rate 57 L Respiratory Rate 16 Blood Pressure Pulse Oximetry Intake & Output 09/30/18 10/01/18 10/01/18 18:59 06:59 18:59 Intake Total 120 / 120 480 / 480 Output Total 2500 / 2500 Balance -2380 / -2380 480 / 480 Weight 64 kg Intake: Oral 120 / 120 480 / 480 Output: Urine 0 / 0 Hemodialysis Amount 2500 / 2500 Other: # Bowel Movements 0 Narrative: GENERAL: AAOx3, no acute distress, generally weak SKIN: Warm and dry. No rashes HEAD: Atruamtic, normocephalic. EYES: No scleral icterus. No injection or drainage. ENT: Moist mucous membranes, patent nares, no erythema of oropharynx. NECK: Supple, trachea midline. No JVD or lymphadenopathy. Normal thyroid. CARDIOVASCULAR: Regular rate and rhythm. No murmurs, gallops, or rubs. RESPIRATORY: Scattered congestive sounds with crackles in bilateral bases. No accessory muscle use. GASTROINTESTINAL: Abdomen soft, non-tender, nondistended, normal active bowel sounds MUSCULOSKELETAL: No cyanosis, or edema. NEURO: CN II-XII grossly intact, no focal deficits, no slurring of speech - Urinary Catheter Management Indwelling Urethral Catheter Cath placed during this visit: yes, but has since been removed by the nurse Reason for continuing: Decision to DC catheter Insertion date: 09/27/18 Insertion time: 21:45 Removal date: 09/28/18 Removal time: 09:15 Results - Labs CBC & Chem 7: 09/27/18 18:41 09/29/18 05:20 Laboratory Results - last 24 hr 09/30/18 10/01/18 10/01/18 19:35 03:34 03:37 POC Glucose 154 H 42 L* 48 L* 10/01/18 10/01/18 10/01/18 03:57 04:27 07:22 POC Glucose 44 L* 126 H 65 L 10/01/18 10/01/18 10/01/18 07:45 08:05 08:48 POC Glucose 93 87 78 10/01/18 10/01/18 09:53 11:47 POC Glucose 83 119 H Microbiology 09/27/18 18:40 Blood - Peripheral Aerobic Blood Culture - Preliminary No growth in 4 days 09/27/18 18:40 Blood - Peripheral Anaerobic Blood Culture - Preliminary No growth in 4 days 09/27/18 18:40 Blood - Peripheral Aerobic Blood Culture - Preliminary No growth in 4 days 09/27/18 18:40 Blood - Peripheral Anaerobic Blood Culture - Preliminary No growth in 4 days Assessment and Plan - Plan 67-year-old female with COPD, type 2 diabetes, CHF, hypertension, CAD, ESRD, on dialysis. Patient presented with shortness of breath on admission as well as DKA. Subsequently diagnosed with COPD exacerbation, pneumonia, UTI. Acute COPD exacerbation with pneumonia Patient presented to the ER with respiratory distress Continue p.o. Levaquin, continue Symbicort Extra dose of Solu-Medrol given today Mostly patient clear from COPD exacerbation, still not clear of pneumonia symptoms. Diabetic ketoacidosis Mostly now resolved Continue sliding-scale insulin with Accu-Cheks Continue diabetic diet Levemir held due to hypoglycemia in a.m. End-stage renal disease Continue hemodialysis on Wednesday Appreciate nephrology consult Urinary tract infection with yeast Zosyn was switched to Levaquin Continue fluconazole DVT Prophylaxis Heparin
--- NOTE | 2018-10-01 17:38 | P.PNNP ---
Physical Exam Vital signs: Vital Signs 09/30/18 20:00 09/30/18 20:16 10/01/18 00:00 Temperature 98.7 F 98.1 F Pulse Rate 84 84 80 Respiratory Rate 16 19 14 Blood Pressure 158/88 H 157/72 H Pulse Oximetry 100 98 100 10/01/18 00:41 10/01/18 04:00 10/01/18 04:22 Temperature 98.9 F Pulse Rate 75 82 72 Respiratory Rate 16 14 14 Blood Pressure 100/48 L Pulse Oximetry 99 97 10/01/18 08:00 10/01/18 09:55 10/01/18 12:00 Temperature Pulse Rate 78 94 H 79 Respiratory Rate 16 Blood Pressure Pulse Oximetry 98 98 10/01/18 15:30 Temperature Pulse Rate 57 L Respiratory Rate 16 Blood Pressure Pulse Oximetry Intake & Output 09/30/18 10/01/18 10/01/18 18:59 06:59 18:59 Intake Total 120 / 120 480 / 480 Output Total 2500 / 2500 Balance -2380 / -2380 480 / 480 Weight 64 kg Intake: Oral 120 / 120 480 / 480 Output: Urine 0 / 0 Hemodialysis Amount 2500 / 2500 Other: # Bowel Movements 0 Narrative: GENERAL: AAOx3, no acute distress, generally weak SKIN: Warm and dry. No rashes HEAD: Atruamtic, normocephalic. EYES: No scleral icterus. No injection or drainage. ENT: Moist mucous membranes, patent nares, no erythema of oropharynx. NECK: Supple, trachea midline. No JVD or lymphadenopathy. Normal thyroid. CARDIOVASCULAR: Regular rate and rhythm. No murmurs, gallops, or rubs. RESPIRATORY: Scattered congestive sounds with crackles in bilateral bases. No accessory muscle use. GASTROINTESTINAL: Abdomen soft, non-tender, nondistended, normal active bowel sounds MUSCULOSKELETAL: No cyanosis, or edema. NEURO: CN II-XII grossly intact, no focal deficits, no slurring of speech - Urinary Catheter Management Indwelling Urethral Catheter Cath placed during this visit: yes, but has since been removed by the nurse Reason for continuing: Decision to DC catheter Insertion date: 09/27/18 Insertion time: 21:45 Removal date: 09/28/18 Removal time: 09:15 Assessment and Plan - Assessment (1) ESRD (end stage renal disease) on dialysis Code(s): N18.6 - End stage renal disease; Z99.2 - Dependence on renal dialysis Status: Acute Plan: End stage renal disease on hemodialysis on Wednesday, Wednesday, and Wednesday. Has right AVG with bruising recent steal syndrome . Avoid IVF administration an gadolinium. Will continue Epogen with dialysis. Hemodialysis done Wednesday. Will continue HD 3x week (2) Acute UTI Code(s): N39.0 - Urinary tract infection, site not specified Status: Acute Plan: On antibiotics. (3) Diabetes Code(s): E11.9 - Type 2 diabetes mellitus without complications Status: Acute Qualifiers: Diabetes mellitus longterm insulin use: with longterm use Plan: Elevated. Recommend to maintain blood sugars between 140 mg/dl to 180 mg/dl. (4) Hypertension Code(s): I10 - Essential (primary) hypertension Status: Acute Plan: Will monitor, on coreg.
[2018-10-01] MEDS: Gabapentin 100 MG Capsule PO SCH (21:28)
[2018-10-02] MEDS: Chlorhexidine Gluconate 2% 1 Pack (2 Cloths) TOPICAL SCH (03:39)
[2018-10-02] MEDS: Insulin NovoLOG Aspart Correctional Sugar Inj SQ SCH ×4 (09:02→21:09)
[2018-10-02] MEDS: Carvedilol 6.25 MG Tablet PO SCH ×2 (09:03→21:12)
[2018-10-02] MEDS: Fluconazole 100 MG Tablet PO SCH (09:03)
[2018-10-02] MEDS: Azithromycin 250 MG Tablet PO SCH (09:03)
[2018-10-02] MEDS: Heparin - SQ 10,000 UNITS/ML Vial SQ SCH ×2 (09:04→21:12)
[2018-10-02] MEDS: Calcium Acetate 667 MG Capsule PO SCH ×3 (09:04→17:22)
[2018-10-02] MEDS: Budesonide-Formoterol 160/4.5 MCG 6 GM Inhaler INH SCH ×2 (09:06→21:14)
--- NOTE | 2018-10-02 15:36 | P.PNIM ---
Subjective Interval history: Patient states that her rib pain, cough, wheezing has all improved after receiving a single dose of Solu-Medrol. She is thankful for this and has no new complaints. Physical Exam Vital signs: Vital Signs 10/01/18 20:00 10/02/18 00:00 10/02/18 04:00 Temperature 97.4 F L 97.8 F 97.4 F L Pulse Rate 88 88 86 Respiratory Rate 18 17 18 Blood Pressure 135/62 136/67 162/71 H Pulse Oximetry 98 100 97 10/02/18 07:54 10/02/18 08:00 10/02/18 12:00 Temperature 97.3 F L 97.4 F L Pulse Rate 67 78 Respiratory Rate 18 18 Blood Pressure 130/57 L 132/71 Pulse Oximetry 99 99 97 Intake & Output 10/01/18 10/02/18 10/02/18 19:59 06:59 18:59 Intake Total Balance Weight Intake: Oral Other: # Voids Date of Last Bowel Movement # Bowel Movements Narrative: GENERAL: AAOx3, no acute distress, generally weak SKIN: Warm and dry. No rashes HEAD: Atruamtic, normocephalic. EYES: No scleral icterus. No injection or drainage. ENT: Moist mucous membranes, patent nares, no erythema of oropharynx. NECK: Supple, trachea midline. No JVD or lymphadenopathy. Normal thyroid. CARDIOVASCULAR: Regular rate and rhythm. No murmurs, gallops, or rubs. RESPIRATORY: Scattered congestive sounds with crackles in bilateral bases. No accessory muscle use. GASTROINTESTINAL: Abdomen soft, non-tender, nondistended, normal active bowel sounds MUSCULOSKELETAL: No cyanosis, or edema. NEURO: CN II-XII grossly intact, no focal deficits, no slurring of speech - Urinary Catheter Management Indwelling Urethral Catheter Cath placed during this visit: yes, but has since been removed by the nurse Reason for continuing: Decision to DC catheter Insertion date: 09/27/18 Insertion time: 21:45 Removal date: 09/28/18 Removal time: 09:15 Results - Labs CBC & Chem 7: 09/27/18 18:41 09/29/18 05:20 Laboratory Results - last 24 hr 10/01/18 10/01/18 10/02/18 17:41 21:20 06:01 POC Glucose 134 H 319 H 327 H 10/02/18 10/02/18 09:01 12:03 POC Glucose 447 H 401 H Microbiology 09/27/18 18:40 Blood - Peripheral Aerobic Blood Culture - Final No growth in 5 days 09/27/18 18:40 Blood - Peripheral Anaerobic Blood Culture - Final No growth in 5 days 09/27/18 18:40 Blood - Peripheral Aerobic Blood Culture - Final No growth in 5 days 09/27/18 18:40 Blood - Peripheral Anaerobic Blood Culture - Final No growth in 5 days Assessment and Plan - Plan 67-year-old female with COPD, type 2 diabetes, CHF, hypertension, CAD, ESRD, on dialysis. Patient presented with shortness of breath on admission as well as DKA. Subsequently diagnosed with COPD exacerbation, pneumonia, UTI. Acute COPD exacerbation with pneumonia Patient presented to the ER with respiratory distress Continue p.o. Levaquin, continue Symbicort Solu-Medrol seems to have clear the residual wheezing that she had yesterday Repeat low-dose Solu-Medrol again today Diabetic ketoacidosis Resolved Continue sliding-scale insulin with Accu-Cheks Continue diabetic diet End-stage renal disease Continue hemodialysis on Wednesday Appreciate nephrology consult Urinary tract infection with yeast Zosyn was switched to Levaquin Continue fluconazole DVT Prophylaxis Heparin Discharge planning Patient's breathing has improved and she should be considered for rehab discharge in the next 1-2 days.
[2018-10-02] MEDS ORDERED: MethylPREDNISolone Sod Succinate Inj 40 MG/ML Vial IV.PUSH ONE (15:37)
--- NOTE | 2018-10-02 18:04 | P.PNNP ---
Subjective Interval history: Patient feels better Physical Exam Vital signs: Vital Signs 10/01/18 20:00 10/02/18 00:00 10/02/18 04:00 Temperature 97.4 F L 97.8 F 97.4 F L Pulse Rate 88 88 86 Respiratory Rate 18 17 18 Blood Pressure 135/62 136/67 162/71 H Pulse Oximetry 98 100 97 10/02/18 07:54 10/02/18 08:00 10/02/18 12:00 Temperature 97.3 F L 97.4 F L Pulse Rate 67 78 Respiratory Rate 18 Blood Pressure 130/57 L 132/71 Pulse Oximetry 99 99 97 10/02/18 16:00 Temperature Pulse Rate 73 Respiratory Rate Blood Pressure Pulse Oximetry Intake & Output 10/01/18 10/02/18 10/02/18 19:59 06:59 18:59 Intake Total Balance Weight Intake: Oral Other: # Voids Date of Last Bowel Movement # Bowel Movements Narrative: GENERAL: AAOx3, no acute distress, generally weak SKIN: Warm and dry. No rashes HEAD: Atruamtic, normocephalic. EYES: No scleral icterus. No injection or drainage. ENT: Moist mucous membranes, patent nares, no erythema of oropharynx. NECK: Supple, trachea midline. No JVD or lymphadenopathy. Normal thyroid. CARDIOVASCULAR: Regular rate and rhythm. No murmurs, gallops, or rubs. RESPIRATORY: Scattered congestive sounds with crackles in bilateral bases. No accessory muscle use. GASTROINTESTINAL: Abdomen soft, non-tender, nondistended, normal active bowel sounds MUSCULOSKELETAL: No cyanosis, or edema. NEURO: CN II-XII grossly intact, no focal deficits, no slurring of speech - Urinary Catheter Management Indwelling Urethral Catheter Cath placed during this visit: yes, but has since been removed by the nurse Reason for continuing: Decision to DC catheter Insertion date: 09/27/18 Insertion time: 21:45 Removal date: 09/28/18 Removal time: 09:15 Assessment and Plan - Assessment (1) ESRD (end stage renal disease) on dialysis Code(s): N18.6 - End stage renal disease; Z99.2 - Dependence on renal dialysis Status: Acute Plan: End stage renal disease on hemodialysis on Wednesday, Wednesday, and Wednesday. Has right AVG with bruising recent steal syndrome . Avoid IVF administration an gadolinium. Will continue Epogen with dialysis. Hemodialysis done Wednesday. Will continue HD 3x week Dr. Toro to follow (2) Acute UTI Code(s): N39.0 - Urinary tract infection, site not specified Status: Acute Plan: On antibiotics. (3) Diabetes Code(s): E11.9 - Type 2 diabetes mellitus without complications Status: Acute Qualifiers: Diabetes mellitus halfway insulin use: with halfway use Plan: Elevated. Recommend to maintain blood sugars between 140 mg/dl to 180 mg/dl. (4) Hypertension Code(s): I10 - Essential (primary) hypertension Status: Acute Plan: Will monitor, on coreg.
[2018-10-02] MEDS: Gabapentin 100 MG Capsule PO SCH (21:12)
[2018-10-03] MEDS: Insulin NovoLOG Aspart Correctional Sugar Inj SQ SCH ×4 (08:18→21:02)
[2018-10-03] MEDS ORDERED: Bisacodyl 10 MG Supp RECTAL ONE (08:26)
--- NOTE | 2018-10-03 10:22 | P.PNNP ---
Subjective Interval history: Seen in AM during hemodialysis. Shortness of breath has improved. No nausea or vomiting. Reports constipation. <Jessica Clemons - Last Filed: 10/03/18 14:58> Physical Exam Vital signs: Vital Signs 10/02/18 12:00 10/02/18 16:00 10/02/18 20:00 Temperature 97.4 F L 97.2 F L 97.7 F Pulse Rate 78 73 78 Respiratory Rate 18 18 16 Blood Pressure 132/71 128/70 157/70 H Pulse Oximetry 97 99 97 10/03/18 00:00 10/03/18 04:00 10/03/18 08:00 Temperature 98.1 F 97.6 F 97.6 F Pulse Rate 103 H 82 78 Respiratory Rate 16 17 16 Blood Pressure 173/75 H 142/61 H 171/76 H Pulse Oximetry 97 97 100 Intake & Output 10/02/18 10/03/18 10/03/18 18:59 06:59 18:59 Intake Total 800 / 800 420 / 420 Balance 800 / 800 420 / 420 Weight 64.4 kg Intake: Oral 800 / 800 420 / 420 Other: # Voids 0 1 Date of Last Bowel Movement 09/26/18 09/26/18 # Bowel Movements 0 Narrative: GENERAL: Alert and oriented. . SKIN: Warm and dry. NECK: Supple, trachea midline. No JVD. CARDIOVASCULAR: Regular rate and rhythm without murmurs, gallops, or rubs. AVF right arm, bruising present. RESPIRATORY: Breath sounds diminished bilaterally. No accessory muscle use. GASTROINTESTINAL: Abdomen soft, non-tender, nondistended. MUSCULOSKELETAL: No cyanosis, no edema BACK: Nontender without obvious deformity. No CVA tenderness. - Urinary Catheter Management Indwelling Urethral Catheter Cath placed during this visit: yes, but has since been removed by the nurse Reason for continuing: Decision to DC catheter Insertion date: 09/27/18 Insertion time: 21:45 Removal date: 09/28/18 Removal time: 09:15 <Jessica Clemons - Last Filed: 10/03/18 14:58> Vital signs: Intake & Output 10/04/18 10/05/18 10/05/18 18:59 06:59 18:59 Other: Date of Last Bowel Movement 10/04/18 - Urinary Catheter Management Indwelling Urethral Catheter Cath placed during this visit: no <Des Toro - Last Filed: 10/05/18 18:43> Assessment and Plan - Assessment (1) ESRD (end stage renal disease) on dialysis Code(s): N18.6 - End stage renal disease; Z99.2 - Dependence on renal dialysis Status: Acute Plan: End stage renal disease on hemodialysis on Wednesday, Wednesday, and Wednesday. Has right AVG with bruising recent steal syndrome . Avoid IVF administration an gadolinium. Will continue Epogen with dialysis. Hemodialysis today with removal of 1.5 liters of fluid. Will continue HD 3x week (2) Acute UTI Code(s): N39.0 - Urinary tract infection, site not specified Status: Acute Plan: On antibiotics. (3) Diabetes Code(s): E11.9 - Type 2 diabetes mellitus without complications Status: Acute Qualifiers: Diabetes mellitus assisted insulin use: with disabilities caregiver use Plan: Elevated, has been on steroids. Recommend to maintain blood sugars between 140 mg/dl to 180 mg/dl. (4) Hypertension Code(s): I10 - Essential (primary) hypertension Status: Acute Plan: Will monitor, on coreg. <Jessica Clemons - Last Filed: 10/03/18 14:58> - Assessment (1) ESRD (end stage renal disease) on dialysis Code(s): N18.6 - End stage renal disease; Z99.2 - Dependence on renal dialysis Status: Acute Plan: Patient seen and examined, agree with above. HD today, will remove fluid as tolerated. Awaiting placement. (2) Acute UTI Code(s): N39.0 - Urinary tract infection, site not specified Status: Acute (3) Diabetes Code(s): E11.9 - Type 2 diabetes mellitus without complications Status: Acute Qualifiers: Diabetes mellitus disabilities caregiver insulin use: with assisted use (4) Hypertension Code(s): I10 - Essential (primary) hypertension Status: Acute <Des Toro - Last Filed: 10/05/18 18:43>
[2018-10-03 10:56] LABS: Hematocrit 30.8 % (35.0-46.0); Hemoglobin 10.1 gm/dL (11.6-15.3); Mean Corpuscular HGB Conc 32.8 % (32.0-36.0); Mean Corpuscular Hemoglobin 30.9 pg (27.0-34.0); Mean Corpuscular Volume 94.1 fL (80.0-100.0); Mean Platelet Volume 8.5 fL (7.0-11.0); Platelet Count 177 th/mm3 (150-450); Red Blood Count 3.27 mil/mm3 (4.00-5.30); Red Cell Distribution Width 16.9 % (11.6-17.2); White Blood Count 4.4 th/mm3 (4.0-11.0)
[2018-10-03 11:59] LABS: Carbon Dioxide 30.5 meq/L (21.0-32.0); Potassium 3.6 meq/L (3.5-5.1)
[2018-10-03] MEDS: Fluconazole 100 MG Tablet PO SCH (13:49)
[2018-10-03] MEDS: Calcium Acetate 667 MG Capsule PO SCH ×3 (13:50→17:46)
[2018-10-03] MEDS: Heparin - SQ 10,000 UNITS/ML Vial SQ SCH ×2 (13:50→22:20)
[2018-10-03] MEDS: Azithromycin 250 MG Tablet PO SCH (13:50)
[2018-10-03] MEDS: Budesonide-Formoterol 160/4.5 MCG 6 GM Inhaler INH SCH ×2 (13:50→20:06)
[2018-10-03] MEDS: Carvedilol 6.25 MG Tablet PO SCH ×2 (13:50→20:05)
[2018-10-03] MEDS ORDERED: Sod Phosphate/Sod Biphosphate (Adult) Enema 133 ML Bottle RECTAL ONE (14:57)
--- NOTE | 2018-10-03 17:46 | P.PNIM ---
Subjective Interval history: Patient is in good spirits today, cough is much relieved, no dyspnea, no more complaints of rib pain. She is aware that she will be plan for discharge tomorrow morning once her blood sugar is under better control. Physical Exam Vital signs: Vital Signs 10/02/18 20:00 10/03/18 00:00 10/03/18 04:00 Temperature 97.7 F 98.1 F 97.6 F Pulse Rate 78 103 H 82 Respiratory Rate 16 16 17 Blood Pressure 157/70 H 173/75 H 142/61 H Pulse Oximetry 97 97 97 10/03/18 08:00 10/03/18 11:37 10/03/18 13:47 Temperature 97.6 F 98.6 F Pulse Rate 77 80 Respiratory Rate 16 20 Blood Pressure 171/76 H 161/67 H Pulse Oximetry 100 100 100 10/03/18 16:00 Temperature 97.8 F Pulse Rate 79 Respiratory Rate 16 Blood Pressure 165/72 H Pulse Oximetry 99 Intake & Output 10/02/18 10/03/18 10/03/18 18:59 06:59 18:59 Intake Total 800 / 800 420 / 420 Output Total 1500 / 1500 Balance 800 / 800 420 / 420 -1500 / -1500 Weight 64.4 kg Intake: Oral 800 / 800 420 / 420 Output: Hemodialysis Amount 1500 / 1500 Other: # Voids 0 1 Date of Last Bowel Movement 09/26/18 09/26/18 # Bowel Movements 0 Narrative: GENERAL: AAOx3, no acute distress SKIN: Warm and dry. No rashes HEAD: Atruamtic, normocephalic. EYES: No scleral icterus. No injection or drainage. ENT: Moist mucous membranes, patent nares, no erythema of oropharynx. NECK: Supple, trachea midline. No JVD or lymphadenopathy. Normal thyroid. CARDIOVASCULAR: Regular rate and rhythm. No murmurs, gallops, or rubs. RESPIRATORY: Breath sounds clear equal bilaterally. No crackles or wheezes. No accessory muscle use. GASTROINTESTINAL: Abdomen soft, non-tender, nondistended, normal active bowel sounds MUSCULOSKELETAL: No cyanosis, or edema. NEURO: CN II-XII grossly intact, no focal deficits, no slurring of speech - Urinary Catheter Management Indwelling Urethral Catheter Cath placed during this visit: yes, but has since been removed by the nurse Reason for continuing: Decision to DC catheter Insertion date: 09/27/18 Insertion time: 21:45 Removal date: 09/28/18 Removal time: 09:15 Results - Labs CBC & Chem 7: 10/03/18 10:15 10/03/18 10:15 Laboratory Results - last 24 hr 10/02/18 10/03/18 10/03/18 19:45 07:45 10:15 WBC 4.4 RBC 3.27 L Hgb 10.1 L Hct 30.8 L MCV 94.1 MCH 30.9 MCHC 32.8 RDW 16.9 Plt Count 177 MPV 8.5 Sodium Potassium Chloride Carbon Dioxide Anion Gap BUN Creatinine Estimated GFR POC Glucose 246 H 525 H* Random Glucose Calcium 10/03/18 10/03/18 10/03/18 10:15 10:17 11:26 WBC RBC Hgb Hct MCV MCH MCHC RDW Plt Count MPV Sodium 139 Potassium 3.6 Chloride 100 Carbon Dioxide 30.5 Anion Gap 9 BUN 30 H Creatinine 1.89 H Estimated GFR 27 L POC Glucose 319 H 296 H Random Glucose 347 H Calcium 8.0 L 10/03/18 10/03/18 13:49 16:12 WBC RBC Hgb Hct MCV MCH MCHC RDW Plt Count MPV Sodium Potassium Chloride Carbon Dioxide Anion Gap BUN Creatinine Estimated GFR POC Glucose 303 H 258 H Random Glucose Calcium Assessment and Plan - Plan 67-year-old female with COPD, type 2 diabetes, CHF, hypertension, CAD, ESRD, on dialysis. Patient presented with shortness of breath on admission as well as DKA. Subsequently diagnosed with COPD exacerbation, pneumonia, UTI. Acute COPD exacerbation with pneumonia Patient presented to the ER with respiratory distress Continue p.o. Levaquin, continue Symbicort 2 doses of Solu-Medrol 40 mg IV have cleared her upper respiratory symptoms Diabetic ketoacidosis increase in blood sugar after second dose of Solu-Medrol Continue sliding-scale insulin with Accu-Cheks Continue diabetic diet End-stage renal disease Continue hemodialysis on Wednesday Appreciate nephrology consult Urinary tract infection with yeast Zosyn was switched to Levaquin Continue fluconazole DVT Prophylaxis Heparin Discharge planning Planning for discharge tomorrow once blood sugar under better control
[2018-10-03] MEDS: Gabapentin 100 MG Capsule PO SCH (20:05)
[2018-10-04 06:32] LABS: Baso % (Auto) 0.7 % (0.0-2.0); Eos % (Auto) 0.3 % (0.0-4.0); Hematocrit 27.4 % (35.0-46.0); Hemoglobin 8.9 gm/dL (11.6-15.3); Lymph # (Auto) 1.1 th/mm3 (1.0-4.8); Lymph % (Auto) 22.2 % (9.0-44.0); Mean Corpuscular HGB Conc 32.6 % (32.0-36.0); Mean Corpuscular Hemoglobin 30.7 pg (27.0-34.0); Mean Corpuscular Volume 93.9 fL (80.0-100.0); Mean Platelet Volume 8.5 fL (7.0-11.0); Mono # (Auto) 0.4 th/mm3 (0.0-0.9); Mono % (Auto) 7.2 % (0.0-8.0); Neut # (Auto) 3.6 th/mm3 (1.8-7.7); Neut % (Auto) 69.6 % (16.0-70.0); Platelet Count 170 th/mm3 (150-450); Red Blood Count 2.92 mil/mm3 (4.00-5.30); Red Cell Distribution Width 16.7 % (11.6-17.2); White Blood Count 5.1 th/mm3 (4.0-11.0)
[2018-10-04 06:52] LABS: Albumin 2.4 g/dL (3.4-5.0); Calcium 8.1 mg/dL (8.5-10.1); Carbon Dioxide 29.8 meq/L (21.0-32.0); Potassium 4.3 meq/L (3.5-5.1)
[2018-10-04] MEDS: Fluconazole 100 MG Tablet PO SCH (09:20)
[2018-10-04] MEDS: Azithromycin 250 MG Tablet PO SCH (09:20)
[2018-10-04] MEDS: Heparin - SQ 10,000 UNITS/ML Vial SQ SCH (09:20)
[2018-10-04] MEDS: Calcium Acetate 667 MG Capsule PO SCH ×2 (09:20→13:01)
[2018-10-04] MEDS: Carvedilol 6.25 MG Tablet PO SCH (09:25)
[2018-10-04] MEDS: Budesonide-Formoterol 160/4.5 MCG 6 GM Inhaler INH SCH (09:26)
[2018-10-04] MEDS: Insulin NovoLOG Aspart Correctional Sugar Inj SQ SCH ×2 (09:26→13:02)
--- NOTE | 2018-10-04 10:03 | P.PNNP ---
Subjective Interval history: No acute events overnight. Denies any shortness of breath, chest pain, nausea, or vomiting. <Jessica Clemons - Last Filed: 10/04/18 11:19> Physical Exam Vital signs: Vital Signs 10/03/18 11:37 10/03/18 13:47 10/03/18 16:00 Temperature 98.6 F 97.8 F Pulse Rate 80 70 Respiratory Rate 20 16 Blood Pressure 161/67 H 165/72 H Pulse Oximetry 100 100 99 10/03/18 20:00 10/03/18 21:09 10/03/18 21:13 Temperature 98.1 F Pulse Rate 78 79 Respiratory Rate 22 17 Blood Pressure 190/79 H Pulse Oximetry 98 99 10/04/18 00:00 10/04/18 04:00 10/04/18 08:00 Temperature 98.0 F 98.2 F 97.4 F L Pulse Rate 80 82 83 Respiratory Rate 21 18 20 Blood Pressure 162/79 H 147/86 H 180/62 H Pulse Oximetry 98 96 97 Intake & Output 10/03/18 10/04/18 10/04/18 18:59 06:59 18:59 Intake Total 480 / 480 240 / 240 Output Total 1600 / 1600 Balance -1120 / -1120 240 / 240 Weight 65.6 kg Intake: Oral 480 / 480 240 / 240 Output: Urine 100 / 100 Hemodialysis Amount 1500 / 1500 Other: # Voids 2 Date of Last Bowel Movement 09/26/18 10/04/18 # Bowel Movements 2 Narrative: GENERAL: Alert and oriented. . SKIN: Warm and dry. NECK: Supple, trachea midline. No JVD. CARDIOVASCULAR: Regular rate and rhythm without murmurs, gallops, or rubs. AVF right arm, bruising present. RESPIRATORY: Breath sounds diminished bilaterally. No accessory muscle use. GASTROINTESTINAL: Abdomen soft, non-tender, nondistended. MUSCULOSKELETAL: No cyanosis, no edema BACK: Nontender without obvious deformity. No CVA tenderness. - Urinary Catheter Management Indwelling Urethral Catheter Cath placed during this visit: yes, but has since been removed by the nurse Reason for continuing: Decision to DC catheter Insertion date: 09/27/18 Insertion time: 21:45 Removal date: 09/28/18 Removal time: 09:15 <Jessica Clemons - Last Filed: 10/04/18 11:19> - Urinary Catheter Management Indwelling Urethral Catheter Cath placed during this visit: no <Des Toro - Last Filed: 10/06/18 21:52> Assessment and Plan - Assessment (1) ESRD (end stage renal disease) on dialysis Code(s): N18.6 - End stage renal disease; Z99.2 - Dependence on renal dialysis Status: Acute Plan: End stage renal disease on hemodialysis on Wednesday, Wednesday, and Wednesday. Has right AVG with bruising recent steal syndrome . Avoid IVF administration an gadolinium. Will continue Epogen with dialysis. Will continue HD 3x week. Plans for discharge today. (2) Acute UTI Code(s): N39.0 - Urinary tract infection, site not specified Status: Acute Plan: On antibiotics. (3) Diabetes Code(s): E11.9 - Type 2 diabetes mellitus without complications Status: Acute Qualifiers: Diabetes mellitus group home insulin use: with remote computer terminal operator use Plan: Elevated, has been on steroids. Recommend to maintain blood sugars between 140 mg/dl to 180 mg/dl. (4) Hypertension Code(s): I10 - Essential (primary) hypertension Status: Acute Plan: Will monitor, on coreg. <Jessica Clemons - Last Filed: 10/04/18 11:19> - Assessment (1) ESRD (end stage renal disease) on dialysis Code(s): N18.6 - End stage renal disease; Z99.2 - Dependence on renal dialysis Status: Acute Plan: Patient seen and examined, agree with above. Continue HD and remove fluid as tolerated. AVF working well, possible discharge. (2) Acute UTI Code(s): N39.0 - Urinary tract infection, site not specified Status: Acute (3) Diabetes Code(s): E11.9 - Type 2 diabetes mellitus without complications Status: Acute Qualifiers: Diabetes mellitus remote computer terminal operator insulin use: with remote computer terminal operator use (4) Hypertension Code(s): I10 - Essential (primary) hypertension Status: Acute <Des Toro - Last Filed: 10/06/18 21:52>
--- NOTE | 2018-10-04 11:17 | P.DS ---
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 Apparently she was just discharged from hospital approximately 4 days ago. Compliance with medication and insulin is a concern as EVAC noticed her house was unkempt. Her oxygen saturation was in the 80s on 3 L nasal cannula. Patient received 1 DuoNeb, one albuterol treatment and Solu-Medrol 125 mg and 500 cc normal saline by EMS. Further evaluation in the ED showed that patient was in severe acidosis. Her initial blood sugar was more than 600, beta hydroxybutyrate was more than 15, her pH was 7, PCO2 was 16 PO2 103 and bicarb on ABG was 4 bicarb on chemistry was 6. DKA protocol was initiated and critical care medicine was requested to admit the patient I evaluate the patient in the ED. Currently patient appears ill, septic. She had been started on DKA protocol. Lim ordered by ED as the patient still makes urine. Dr. Toro had been contacted. UA shows evidence of UTI and moderate yeast. Patient had received vancomycin and Zosyn. Chest x-ray shows left-sided effusion which is decreased in size compared to before. She has chronic effusion. I will continue Zosyn and start her on Micafungin for fungal UTI. DS: Medications - Discharge Medications Prescriptions: albuterol sulfate [Ventolin HFA] 2 puff INHALATION Q6H PRN #1 inh PRN Reason: Shortness Of Breath aspirin 81 mg PO DAILY #30 tab atorvastatin 80 mg PO HS #30 tab azithromycin 500 mg PO DAILY 5 Days #5 tab budesonide-formoterol [Symbicort] 2 puff INHALATION BID #1 inh bumetanide 1 mg PO BID 30 Days #60 tab calcium acetate 667 mg PO TID 30 Days #90 cap carvedilol 6.25 mg PO BID #60 tab dextromethorphan-guaifenesin 10 ml PO Q6H #600 ml diphenhydramine HCl 25 mg PO UNSCH PRN #30 cap PRN Reason: Allergy Symptoms gabapentin 100 mg PO HS #30 cap insulin detemir U-100 [Levemir U-100 Insulin] 5 unit SUBCUT BID #5 vial ipratropium-albuterol 1 amp NEB Q4HR NEB PRN #180 amp PRN Reason: SOB/WHEEZING nifedipine 90 mg PO DAILY #30 tab nitroglycerin [Nitrostat] 0.4 mg SUBLINGUAL Q5M PRN #100 tab PRN Reason: Chest Pain oxycodone-acetaminophen 1 tab PO Q4H PRN 3 Days #18 tab PRN Reason: Acute Pain prasugrel 10 mg PO DAILY #30 tab sennosides-docusate sodium [Senna Plus] 2 tab PO BID #120 tab vit B comp no.2-[id number]-biotin [Nephro-Bonita Rx] 1 tab PO DAILY #30 tab DS: Summary Hospital Course: 67-year-old female who has a history of type 2 diabetes, end-stage renal disease , COPD, presented to the ER with respiratory distress and altered mental status. She was found to be in diabetic ketoacidosis and to have bilateral pneumonia along with urinary tract infection. She was treated temporarily in the ICU but graduated out to the floor with some residual lung congestion which responded well to 2 doses of Solu-Medrol as well as breathing treatments. She has been hospitalized for approximately 1 week has been treated for pneumonia and UTI during that time. She has reached maximal benefit and is looking forward to going back to rehab in order to resume her therapy so that she can get back on her feet again. She is stable for discharge today. - Time Spent with Patient Total time spent providing and/or coordinating discharge services: Less than 30 minutes - Quality: VTE Deep Vein Thrombosis/Pulmonary Embolism Present on Admission: No Exam Vital signs: Vital Signs 10/03/18 11:37 10/03/18 13:47 10/03/18 16:00 Temperature 98.6 F 97.8 F Pulse Rate 80 70 Respiratory Rate 20 16 Blood Pressure 161/67 H 165/72 H Pulse Oximetry 100 100 99 10/03/18 20:00 10/03/18 21:09 10/03/18 21:13 Temperature 98.1 F Pulse Rate 78 79 Respiratory Rate 22 17 Blood Pressure 190/79 H Pulse Oximetry 98 99 10/04/18 00:00 10/04/18 04:00 10/04/18 07:55 Temperature 98.0 F 98.2 F Pulse Rate 80 82 82 Respiratory Rate 21 18 Blood Pressure 162/79 H 147/86 H Pulse Oximetry 98 96 10/04/18 08:00 10/04/18 10:55 Temperature 97.4 F L Pulse Rate 83 Respiratory Rate 20 Blood Pressure 180/62 H Pulse Oximetry 97 98 Intake & Output 10/03/18 10/04/18 10/04/18 18:59 06:59 18:59 Intake Total 480 / 480 240 / 240 Output Total 1600 / 1600 Balance -1120 / -1120 240 / 240 Weight 65.6 kg Intake: Oral 480 / 480 240 / 240 Output: Urine 100 / 100 Hemodialysis Amount 1500 / 1500 Other: # Voids 2 Date of Last Bowel Movement 09/26/18 10/04/18 # Bowel Movements 2 Results Procedures completed during hospitalization: none Labs on day of discharge: Labs from last 24 hours 10/04/18 10/04/18 10/04/18 07:21 06:00 06:00 WBC 5.1 RBC 2.92 L Hgb 8.9 L Hct 27.4 L MCV 93.9 MCH 30.7 MCHC 32.6 RDW 16.7 Plt Count 170 MPV 8.5 Neut % (Auto) 69.6 Lymph % (Auto) 22.2 [place] % (Auto) 7.2 Eos % (Auto) 0.3 Baso % (Auto) 0.7 Neut # (Auto) 3.6 Lymph # (Auto) 1.1 [place] # (Auto) 0.4 Eos # (Auto) 0.0 Baso # (Auto) 0.0 WBC Differential . Differential Comment Auto diff final Sodium 137 Potassium 4.3 Chloride 99 Carbon Dioxide 29.8 Anion Gap 8 BUN 42 H Creatinine 2.32 H Estimated GFR 21 L POC Glucose 350 H Random Glucose 292 H Calcium 8.1 L Phosphorus 2.0 L Albumin 2.4 L 10/03/18 10/03/18 10/03/18 20:58 16:12 13:49 WBC RBC Hgb Hct MCV MCH MCHC RDW Plt Count MPV Neut % (Auto) Lymph % (Auto) [place] % (Auto) Eos % (Auto) Baso % (Auto) Neut # (Auto) Lymph # (Auto) [place] # (Auto) Eos # (Auto) Baso # (Auto) WBC Differential Differential Comment Sodium Potassium Chloride Carbon Dioxide Anion Gap BUN Creatinine Estimated GFR POC Glucose 122 H 258 H 303 H Random Glucose Calcium Phosphorus Albumin 10/03/18 10/03/18 11:26 10:15 WBC RBC Hgb Hct MCV MCH MCHC RDW Plt Count MPV Neut % (Auto) Lymph % (Auto) [place] % (Auto) Eos % (Auto) Baso % (Auto) Neut # (Auto) Lymph # (Auto) [place] # (Auto) Eos # (Auto) Baso # (Auto) WBC Differential Differential Comment Sodium 139 Potassium 3.6 Chloride 100 Carbon Dioxide 30.5 Anion Gap 9 BUN 30 H Creatinine 1.89 H Estimated GFR 27 L POC Glucose 296 H Random Glucose 347 H Calcium 8.0 L Phosphorus Albumin - Impressions ITS Impressions Chest X-Ray 09/27/18 18:23 CONCLUSION: Slight improved aeration. Discharge Plan - Discharge Disposition Patient Disposition: Discharge to SNF - Discharge Condition Condition: Fair - Discharge Order Discharge Orders: Discharge Order (Routine); Ordered 10/04/18 Ordered By: Timothy Gill - Physicians Team Primary Care Provider: UNKNOWN, Attending Provider: Timothy Gill Other Providers: [facility],Agency ; [facility],Agency
== END 2018-10-04 16:00 ==
LOC: NEPE 18:10 → NEDA 20:58 → HIMC 22:10 → N04 09-29 20:19
PROVIDERS: ADMIT Family Medicine; ATTEND Family Medicine